=== PATIENT | female | born 1950 | race Caucasian/White ===

== ENCOUNTER 2017-08-17 08:29 | Emergency (ER) | payer MEDICARE, OTHER, SELFPAY ==
[2017-08-17 08:29] VITALS: BP 100/57; PULSE 106; RESP 16; TEMP 36.5; O2SAT 97; BMI 24.7
--- NOTE | 2017-08-17 08:46 | CT_ITS ---
STUDY: CT ABDOMEN AND PELVIS WITH CONTRAST REASON FOR EXAM: Female, 67 years old. 3 day history of left-sided abdominal pain. Chronic constipation. Neurogenic bladder. 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 RADIATION DOSAGE (If Supplied By Facility): CTDIvol = ( 22.08 ) mGy, DLP = ( 1121.26 ) mGycm TECHNIQUE: Transaxial images were obtained from the dome of the diaphragm to the symphysis pubis without oral contrast. 100mL ml of Isovue 300 contrast was administered. Sagittal and coronal images were reconstructed. Individualized dose optimization techniques were used for this CT. COMPARISON: Comparison is made with prior study dated January 17, 2017. FINDINGS: Stable mild degree of increased markings at the lung bases suggestive of bibasilar scarring. Coronary artery calcification. There is decreased attenuation of the liver consistent with steatosis. Normal gallbladder and extrahepatic biliary system. Normal spleen. There is diffuse atrophy of the pancreas. Normal bilateral adrenal glands. Normal right kidney. Normal left kidney. Normal visualized stomach. Normal small intestine. The large amount of fecal material is seen throughout the colon. The appendix is visualized and appears normal. Normal abdominal aorta. Normal inferior vena cava. Normal retroperitoneum. The urinary bladder is empty. Small amount of free fluid is seen in the pelvis. There is a small umbilical hernia containing fat. A pacer device is seen overlying the right lower quadrant. Once again, there is evidence of a comminuted fracture of the proximal right femur with a nonosseous Jarvis. Persistent soft tissue density is seen in the region of the right hip joint most likely representing a chronic synovial fluid and possible soft tissue proliferation. There is evidence of a 4.7 cm x 4.3 cm soft tissue changes with central lucency in the medial aspect of the left gluteus region posteriorly. This may represent possible early decubitus ulcer formation. Clinical correlation is recommended. CT/Abdomen/Pelvis W IV Cont ONLY IMPRESSION: Moderate amount of fecal material is seen throughout the colon. Small amount of free fluid in the pelvis. Fatty infiltration of the liver. Atrophy of the pancreas. Stable appearance of the proximal right femur with nonhealing of a fracture with concomitant soft tissue changes. Findings suggestive of early decubitus ulcer formation with soft tissue induration in the medial aspect of the left gluteal region. Electronically Signed: Forest Fajardo MD at 10:29 EDT Tel [phone], Service support ,
--- NOTE | 2017-08-17 08:50 | ED.VISSUMM ---
- ER Visit Summary Date of Service: 08/17/17 Chief Complaint: Abdominal pain History of Present Illness: The patient is a 67 F 3 of 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 She states she has had moderate to severe abdominal pain since 230 this morning. She states she has had this before when she is a urinary infections. She does self cath herself. She denies fever. She has had nausea with no vomiting. She is on chronic pain meds and has a implanted pain pump that treats her with Dilaudid. She denies any prior abdominal surgeries other than her pain pump. Physical Examination: Signs are stable afebrile. Pulse ox 97% room air no signs of hypoxia. H EENT exam unremarkable. Neck nontender. Lungs clear to auscultation bilaterally. Heart regular rate and rhythm no murmur. Abdomen is soft diffusely tender. She is tender to even extremely light palpation. Nondistended. No hernias or masses. No organomegaly or masses. Normal bowel sounds. No signs of obstruction. Both upper extremities neurovascular intact. Both lower extremities are paralyzed without sensation. Neurologically she is awake and alert. Test Results: ABC normal white count 8. H&H 1340. BMP normal. Normal creatinine and gap. Liver enzymes normal. Lipase normal. CT abdomen and pelvis shows increasing stool. Fluid in the pelvis. No right femoral foot fracture. In the left gluteal region decubitus. UA was consistent for infection with 25-50 white cells. 5-10 red cells 3+ bacteria a urine culture was sent this will be treated as UTI. Emergency Department Course and Treatment: With diffuse abdominal pain. Undergo screening labs along with urinalysis and CT of her abdomen and pelvis with IV contrast only. She will be treated with IV morphine and Dilaudid. Treatment Plan: He will be started on Keflex 500 mg 4 times a day for days. Follow-up with primary care physician. Again a urine culture was sent. Disposition: Discharge Impression: Acute abdominal pain secondary to urinary tract infection History of transverse myelitis with bilateral lower extremity paralysis This note was generated with [employer] software. It may contain incorrect words, spelling, and punctuation that were not noted in review of the chart prior to signing ED Disposition - Plan for ED Patient: Chief Complaint: Abd Pain Referrals: Coleman Michele MD [Primary Care Provider] -
[2017-08-17] MEDS: Ondansetron 4 MG/2 ML Vial IV (09:11)
[2017-08-17] MEDS: HYDROmorphone 1 MG/ML Syringe IV (09:11)
[2017-08-17 09:33] LABS: Absolute Lymphocyte Count 0.53 X10^3/ul (0.83-4.51); Absolute Neutrophil Count 7.6 X10^3/uL (2.0-7.7); Basophil# 0.01 X10^3/uL; Basophil% 0.1 % (0-1); Eosinophil# 0.06 X10^3/uL; Eosinophils% 0.7 % (0-5); Hematocrit 40.6 % (37-47); Hemoglobin 13.5 g/dl (12.0-15.0); Lymphocyte # 0.53 X10^3/ul (4.0); Lymphocyte % 6.3 % (19-41); Mean Corp Hgb Conc 33.3 g/gl (32-36); Mean Corpuscular Hgb 31.2 pg (27.0-32.0); Mean Corpuscular Volume 93.8 fL (81-99); Mean Platelet Vol. 10.3 fl (6.2-12.0); Monocyte# 0.17 X10^3/uL; Neutrophil # 7.58 X10^3/uL (2.7-7.7); Neutrophil % 90.8 % (47-70); Platelet Count 219 K/mm3 (150-450); RBC Distribution Width CV 13.4 % (11.6-14.6); RBC Distribution Width SD 44.8 fl (35.1-43.9); Red Blood Count 4.33 M/mm3 (4.2-5.4); White Blood Count 8.4 K/mm3 (4.4-11.0)
[2017-08-17 09:35] LABS: Color, Urine Yellow (Yellow); Glucose, Dipstick Normal (Normal); Ketone-Dipstick Negative (Negative); Leukocyte Esterase-Dipstick 500 /ul (Negative); Nitrite-Dipstick Negative (Negative); Occult Blood-Urine 150 /ul (Negative); Protein-Dipstick 30 mg/dl (Negative); Urine Bilirubin Dipstick Negative (Negative); Urine Clarity Cloudy (Clear); Urine Urobilinogen Normal (Normal)
[2017-08-17 09:37] LABS: Differential Indicated SCAN CRITERIA MET; POSITIVE COUNT NO; POSITIVE DIFFERENTIAL YES; POSITIVE MORPHOLOGY NO
[2017-08-17 09:42] LABS: AST(SGOT) 27 U/L (15-37); Alanine Aminotransfer ALT/SGPT 20 U/L (13-56); Albumin, Serum 3.5 g/dL (3.2-5.0); Alkaline Phosphatase 96 U/L (45-117); Anion Gap 7 (5-15); BUN 13 mg/dL (7-18); Bilirubin, Direct < 0.05 mg/dL (0.00-0.30); Calcium,Total 8.5 mg/dL (8.5-10.1); Chloride 103 mmol/L (98-107); Creatinine, Serum 0.76 mg/dL (0.55-1.02); EST Glomerular Filtration Rate 80 mL/min (>60); Est Glom Filt Rate - Afr Amer 97 mL/min (>60); Estimated Creatinine Clearance 45.78 ml/min; Globulin 3.6 g/dL (2.2-4.2); Glucose 120 mg/dL (74-106); Lipase 46 U/L (73-393); Potassium 4.2 mmol/L (3.5-5.1); Protein, Total 7.1 g/dL (6.4-8.2); Sodium Level 139 mmol/L (136-145)
[2017-08-17 09:45] LABS: Bacteria 3+ /hpf (None Seen); Red Blood Cells-Urine 5-10 SEEN /hpf (0-5); Squamous Epithelial Cells - UA 0-5 SEEN /hpf (5-10); White Blood Cells 25-50 SEEN /hpf (0-5)
[2017-08-17 09:46] LABS: Mucous, Urine 1+ /hpf (<or=2+)
[2017-08-17 10:32] LABS: Differential Comment SCANNED
[2017-08-17 11:11] VITALS: PULSE 110; RESP 18; O2SAT 94
[2017-08-17 12:25] VITALS: BP 101/79; PULSE 109; RESP 12; O2SAT 99
--- NOTE | 2017-08-17 13:00 | ED.DEP ---
ED Disposition - Plan for ED Patient: Disposition: Home or Assisted Living Chief Complaint: Abd Pain Instructions: ED Constipation, ED UTI Cystitis Female Prescriptions: Cephalexin [Keflex] 500 mg PO Q6 #30 cap Referrals: Coleman Michele MD [Primary Care Provider] - As soon as possible Additional Instructions: Drink plenty of water to help with both the constipation and urinary tract infection. A urine culture was sent and can be followed up by her primary care physician to ensure you are on the correct antibiotic. That should return in 2 days. Keflex 4 times a day for the urinary tract infection.
[2017-08-17 13:10] VITALS: BP 103/65; PULSE 86; RESP 18; O2SAT 99
[2017-08-17] MEDS: Cephalexin 250 MG Capsule 500 MG PO (13:11)
== END 2017-08-17 13:23 | disposition home or self-care (01) ==
PROVIDERS: Emergency Provider Emergency Medicine; Family Provider Family Medicine; PCP Family Medicine
DX: N39.0 Urinary tract infection, site not specified (principal); R10.9 Unspecified abdominal pain; K59.00 Constipation, unspecified; G83.9 Paralytic syndrome, unspecified; G37.3 Acute transverse myelitis in demyelinating disease of central nervous system
CPT/HCPCS: 74177; 80048; 80076; 81001; 83690; 85025; 96374; 96375; 99285; P9612; Q9967; A4216; J2405

== ENCOUNTER 2017-12-07 13:27 | Outpatient (RCR) | payer MEDICARE, OTHER, SELFPAY ==
--- NOTE | 2017-12-07 14:26 | HP.PTEVAL_ITS ---
Patient's Visit Information MAGALI ANDREA is a 67 year old F referred to Physical Therapy by Coleman Michele with a diagnosis of Paraplegia. Date of Evaluation: 12/07/17 Physical Therapist: Cuco Frances - Visit Plan Frequency: 1x/Week Duration: 1 Week Plan: Pt. presents with need for new wc as she has multiple areas that are wearing out on her wc. She needs propulsion assistance to increase functional independence and roho like cushion to reduce future skin breakdown. - Subjective Subjective: Pt. is here today for her initial evaluation with diagnosis of paraplegia with need for WC evaluation. Pt. reports when she was 49 y.o. she developed transverse meyolitis and has been not amblatory since. Pt. has had a propulsion assist wc for ~8 years now. Pt's wt. has many areas that has broken down including arm rest, wheel covers, wheels them selves, batter does not hold charge very well (per pt.). Pt. has a roho cushion for ~8 years as well. Pt. has a history of pressure sore, but reports I have one that looks bad, but it is not there yet (ischial tuberosities). Pt. reports being in her chair ~12 hours a day. Pt. reports frequent UTI, and does self catheterizations. Pt. reports no feeling below umbilicus level. Pt. is an independent transfer with slide board with all txs. Pt. is hopeful to get a new wc allowing for increased independence in community and home. Pt. reports battery life on her wc is ~ 8 hours with frequent use. - Pain BLEs Pain Intensity (Out of 10): 8 Pain Intensity Range: 5, 8 - Objective POSTURE: Pt. has proper trunk controll in sitting, pt. is able to do so without UE assistance. Pt. has no volitional use of LEs. PALPATION: Pt. has no pain with UEs. Pt. has chronic pain in BLEs, but no pain to palpation. Pt. has reported skin irrtation on R ischial tuberosity that she is keeping an eye on. NEUROLOGICAL: Pt. has normal BUE biceps nad triceps DTR, unable to elicit achilles or patellar DTR bilaterally. No sensation to light or sharp thruoghout bilateral LEs, normal senastion in UEs. ROM: Pt. has full ROM of BLE passively. Pt. has normal BUE ROM without increase in symptoms, active and passive. MMT: RUE- wrist 5/5 throughout; elbow 5/5 throughout; shoulder- flexion 4+/5, abd 4+/5, ext 5/5, ER 4/5, IR 5/5. LUE- wrist/elbwo 5/5 throughout ; shoulder- flexion 4+/5, abd 4+/5, ext 5/5, IR 5/5, ER 4+/5. BLES- no volitional movement fo BLEs. No trace noted. WC mobility- pt. is able to lateral shift to relieve pressure in in wc. Pt. is able to propel wc without assistance from propulsion assist, 100ft. in 58sec.; with propulsion assist she was able to complete 100ft. in 15sec. Pt. is able to ADELA transfer with slide board from wc to table and back. - Goals Goal 1:: Pt. to be assessed for need of new WC. Goal Time Frame: 1 Week - Rehabilitation Potential Physical Therapy Diagnosis: Pt. has signs and symptoms consistent with paraplegia after transverse myelitis. Pt. is in need of new wc as her current one has many areas that have worn down including her cushion, L arm rest, B wheel covers and wheels, her batter is not holding appropriate charge as well. Due to her functioal mobility and break down of her chair, I would recommend that she has a new wc with roho like cusion, and propulsion assistance allowing for appropriate functional independence. Rehabilitation Potential: Excellent - Anticipated Interventions Patient/Client Instruction: Educate patient on: Condition, Plan of Care, Risk Factors, Benefits of Fitness Program For the Purpose of:: To foster healthy habits, To improve decision making, To facilitate caregiver knowledge, To improve self management, To prevent re-injury , To improve ability to perform tasks related to life management, To improve tolerance to ADL's Therapeutic Exercise to Include: Strength training, Power training, Postural training, Flexibilty training For the Purpose of:: To improve nutrient delivery to tissue, To increase oxygenation perfusion, To improve muscle performance and motor function, To improve health of tissue, To decrease soft tissue restriction, To increase flexibility/ROM Thank you for the opportunity to evaluate your patient. For Medicare and Medicare HMO plans, please review the plan of care and approve it. It will need to be FAXED BACK to us at [phone] for Medicare purposes. Please let me know if there are questions or concerns regarding this plan of care. Physician Signature: Date:
--- NOTE | 2018-02-09 10:25 | HP.PTDCNRP_ITS ---
HP - Discharge Summary (1) - Patient Information MAGALI ANDREA was seen in my office for initial evaluation on 12/07/17. The following Plan of Care was established for this patient: Initial Frequency: 1x/Week Initial Duration: 1 Week - Anticipated Interventions Patient/Client Instruction: Educate patient on: Condition, Plan of Care, Risk Factors, Benefits of Fitness Program For the Purpose of:: To foster healthy habits, To improve decision making, To facilitate caregiver knowledge, To improve self management, To prevent re- injury, To improve ability to perform tasks related to life management, To improve tolerance to ADL's Therapeutic Exercise to Include: Strength training, Power training, Postural training, Flexibilty training For the Purpose of:: To improve nutrient delivery to tissue, To increase oxygenation perfusion, To improve muscle performance and motor function, To improve health of tissue, To decrease soft tissue restriction, To increase fle xibility/ROM This patient was last seen in our office 12/07/17. Pertinent comments regarding their Physical therapy will appear below: Pt. was seen for her WC evalutation. Pt. has not been seen since and will be DC from PT at this point in time. At this point I will be discontinuing this patient from physical therapy. I would be happy to see this patient again in the future if found appropriate by the physician. Thank you! Cuco Frances
== END 2017-12-07 19:00 | disposition home or self-care (01) ==
LOC: PT 13:27
PROVIDERS: Family Provider Family Medicine; PCP Family Medicine; Visit Provider Family Medicine
DX: G82.20 Paraplegia, unspecified (principal)
CPT/HCPCS: 97162

== ENCOUNTER → 2017-12-15 16:44 | Outpatient (CLI) | payer MEDICARE, OTHER, SELFPAY | PROVIDERS: Family Provider Family Medicine; PCP Family Medicine; Visit Provider Family Medicine | DX: N39.0 Urinary tract infection, site not specified (principal) | CPT/HCPCS: 87086; 87088; 87186 ==

== ENCOUNTER 2018-01-18 12:40 | Day surgery (SDC) | payer MEDICARE, OTHER, SELFPAY ==
[2018-01-18 12:55] VITALS: BP 112/68; PULSE 79; RESP 14; TEMP 36.4; O2SAT 97; BMI 26.0
[2018-01-18] MEDS: Bupivacaine Mpf 0.5% 30 ML VIAL (13:39)
[2018-01-18] MEDS: MethylPREDNISolone Acetate 80 MG/ML Vial (13:39)
--- NOTE | 2018-01-18 13:45 | RAD_ITS ---
PROCEDURE: Caudal block. DATE OF EXAMINATION: January 18, 2018. INDICATION: Female, 67 years old. Chronic low back pain. FLUOROSCOPY TIME (if supplied): (0:14) minutes/seconds. 3 cone down intraoperative views were obtained. Intraoperative imaging provided for caudal block. The spinal needle is seen along the posterior midportion of the sacrum. RAD/Fluor Guidance for Spine Inj IMPRESSION: Imaging provided for caudal block. Electronically Signed: Forest Fajardo MD at 11:06 EDT Tel [phone], Service support ,
[2018-01-18 13:50] VITALS: BP 112/68; BP 118/75; PULSE 75; RESP 16; TEMP 36.6; O2SAT 95
[2018-01-18 14:00] VITALS: BP 112/68; BP 118/75; PULSE 75; RESP 16; TEMP 36.6; O2SAT 98
[2018-01-18 14:15] VITALS: BP 112/68
--- NOTE | 2018-01-18 15:22 | OP.PCM_ITS ---
Problem List (1) Degeneration of intervertebral disc of lumbosacral region Status: Chronic (2) 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 History of Report of Operation Date of Procedure: 01/18/18 Pre-Operative Diagnosis: Transversus myelitis, lumbosacral degenerative disc disease Post-Operative Diagnosis: Transversus myelitis, lumbosacral degenerative disc disease Surgery/Procedure Performed:: Caudal epidural steroid injection Description of Surgical Findings:: PROCEDURE: Caudal epidural steroid injection PREOPERATIVE DIAGNOSIS: Transversus myelitis, lumbosacral degenerative disc disease POSTOPERATIVE DIAGNOSIS: Transversus myelitis, lumbosacral degenerative disc disease ANESTHESIA: Local COMPLICATIONS: None BLOOD LOSS: Minimal PROCEDURE IN DETAIL: History and physical today was reviewed. Risks and benefits of the procedure were explained. The patient understood, agreed to our procedure, and informed consent was obtained. IV inserted per routine protocol. The patient was taken to the operating room, placed in a prone position with a pillow positioned underneath the abdomen. The lower back and tailbone area was prepped and draped in a sterile fashion using iodine ?3 under fluoroscopy guidance on the lateral view the caudal space was identified the skin and subcutaneous tissue and size approximately 3 cc of 1 % lidocaine using a 25-gauge regular needle under direct visualization fluoroscopy using the lateral approach using a 22-gauge 3-1/2 inch spinal needle the needle was advanced via the skin through the sacral hiatus, tip of the needle passed through the sacrococcygeal ligament advanced approximately S4 area after negative aspiration for blood or CSF a total of 3 cc of contrast were injected to confirm correct placement of the needle as well as cephalad spread the spread was followed to approximately L5 area after confirmation AP as well as lateral view repeated negative aspiration a total of 15 cc of preservative-free 0.125% Marcaine with 80 mg of the portal was injected easily. The needles were then removed intact. The patient experienced no signs or symptoms intrathecal, intravascular injection. The patient experienced no paraesthesia. The procedure was completed without any apparent difficult, any complication. The patient appeared to tolerate well. ASSESSMENT AND PLAN: This is a 67-year-old female with transversus myelitis, lumbosacral degenerative disc disease status post caudal epidural steroid injection. The patient will continue her current medications. The patient will follow in approximately 2 weeks for possible repeat of the procedure if indicated.
== END 2018-01-18 14:20 | disposition home or self-care (01) ==
LOC: SDC 12:40 → AC 12:42
PROVIDERS: Family Provider Family Medicine; PCP Family Medicine; Visit Provider Anesthesiology Pain Medicine
PROC: 3E0S3BZ Introduction of Anesthetic Agent into Epidural Space, Percutaneous Approach (ICD-10-PCS; CPT 62282; principal; 2018-01-18 13:40)
DX: G37.3 Acute transverse myelitis in demyelinating disease of central nervous system (principal); M51.37 Other intervertebral disc degeneration, lumbosacral region; F32.9 Major depressive disorder, single episode, unspecified; F41.9 Anxiety disorder, unspecified; M81.0 Age-related osteoporosis without current pathological fracture; G89.0 Central pain syndrome; G82.20 Paraplegia, unspecified; M12.9 Arthropathy, unspecified; M79.1 Myalgia; F11.20 Opioid dependence, uncomplicated; Z79.891 Long term (current) use of opiate analgesic
CPT/HCPCS: 62323; 64483; 77003; J7120; J3490

== ENCOUNTER → 2018-05-07 15:30 | Outpatient (CLI) | payer MEDICARE, OTHER, SELFPAY ==
[2018-04-19 11:45] VITALS: BMI 27.4
--- NOTE | 2018-05-07 16:00 | MRI_ITS ---
STUDY: MRI THORACIC SPINE WITHOUT CONTRAST REASON FOR EXAM: Female, 68 years old. Low back pain, leg pain. 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 TECHNIQUE: Standardized fat and water weighted pulse sequences were obtained in the sagittal and axial planes. COMPARISON: Postmyelogram CT of the thoracic spine 12/06/2013. FINDINGS: Normal kyphosis of the thoracic spine. There is no substantial scoliosis. T1-2, T2-3, T3-4, T4-5, T5-6, T6-7, T7-8, T8-9, T9-10, T10-11, T11-12: Schmorl's nodes in the inferior endplates of T9 and T10 vertebral bodies. Normal endplates. Normal disc height and morphology. No ventral extradural defect. Normal central canal and bilateral intervertebral neural foramina. Atrophy of the thoracic spinal cord but most pronounced at the lower T10 vertebral body level down to the lower T11 vertebral body level. This is worse since 12/06/2013. No intrinsic signal abnormality of the spinal cord. The atrophic conus medullaris terminates at the mid L1 vertebral body level. The soft tissue structures are unremarkable. MRI/Spine Thoracic (Routine) IMPRESSION: 1. Progression of thoracic spinal cord atrophy but most pronounced at the lower T10 vertebral body level down to the lower T11 vertebral body level when compared to post myelogram CT of 12/06/2013. 2. No MRI evidence of intrinsic signal abnormality of the spinal cord. 3. No MRI evidence of thoracic extruded disc fragment or spinal stenosis. Electronically Signed: Redd Shoemaker MD at 10:49 EST , Service support ,
--- NOTE | 2018-05-07 16:45 | MRI_ITS ---
STUDY: MRI LUMBAR SPINE WITHOUT CONTRAST REASON FOR EXAM: Female, 68 years old. Low back and leg pain TECHNIQUE: Standardized fat and water weighted pulse sequences were obtained in the sagittal and axial planes. COMPARISON: None FINDINGS: T12-L1: Normal endplates. Normal disc height, hydration and morphology. Normal bilateral facet joints. Normal central canal and bilateral lateral recesses. Normal bilateral intervertebral neural foramina. Normal lumbar lordosis. There is no substantial scoliosis. Normal conus medullaris that terminates at T12-L1 L1-2: Normal endplates. Normal disc height, hydration and morphology. Normal bilateral facet joints. Normal central canal and bilateral lateral recesses. Normal bilateral intervertebral neural foramina. L2-3: Normal endplates. Normal disc height, hydration and morphology. Normal bilateral facet joints. Normal central canal and bilateral lateral recesses. Normal bilateral intervertebral neural foramina. L3-4: Normal endplates. Normal disc height, hydration and small bilateral foraminal disc protrusions. Mild facet arthropathy.. Normal central canal and bilateral lateral recesses. Mild bilateral neural foraminal encroachment slightly more pronounced on the left L4-5: Normal endplates. Normal disc height, hydration and bilateral foraminal disc protrusions larger on the left.. Facet arthropathy and thickening of ligamenta flava. Normal central canal. Mild bilateral recess stenosis. Moderate right neuroforaminal stenosis and more severe narrowing on the left L5-S1: Normal endplates. Normal disc height, hydration and morphology. Mild facet arthropathy and thickening of ligamenta flava.. Normal central canal and bilateral lateral recesses. Normal bilateral intervertebral neural foramina. Normal visualized sacral ala. Normal visualized paraspinous soft tissue structures. MRI/Spine Lumbar (Routine) IMPRESSION: No evidence for acute fracture or other significant bony pathology. Spinal stenosis at L3-4 and L4-5 greater on the left due to disc disease and facet arthropathy. Electronically Signed: Star Cerrato MD at 21:17 EST , Service support ,
== END ==
PROVIDERS: Family Provider Family Medicine; PCP Family Medicine; Referring Provider Anesthesiology Pain Medicine; Visit Provider Anesthesiology Pain Medicine
DX: M54.5 Low back pain (principal); M79.606 Pain in leg, unspecified
CPT/HCPCS: 72146; 72148

== ENCOUNTER 2018-05-10 13:00 | Day surgery (SDC) | payer MEDICARE, OTHER, SELFPAY ==
[2018-04-19 11:45] VITALS: BP 130/81; PULSE 87; RESP 14; TEMP 36.9; O2SAT 100; BMI 27.4
[2018-05-10 13:24] VITALS: BP 111/72; PULSE 76; RESP 16; TEMP 36.7; O2SAT 99; BMI 26.0
[2018-05-10] MEDS: Cefazolin 2 GM in 0.9% Normal Saline 100 ML IV (14:07)
[2018-05-10] MEDS: Bupivacaine 0.25% 30 ML Vial (14:30)
--- NOTE | 2018-05-10 14:30 | RAD_ITS ---
STUDY: Fluoroscopy intraoperative LUMBAR SPINE REASON FOR EXAM: Female, 68 years old. Intraoperative fluoroscopy insertion spinal cord stimulator trial TECHNIQUE: 8 fluoroscopic view(s) of the lumbar spine were obtained. COMPARISON: None FINDINGS: 8 fluoroscopic views are provided of the spine during spinal cord stimulator insertion. The last image image #8 shows a stimulator device catheter at the level T9-T10. Fluoroscopic time is recorded at 240 seconds. RAD/Lumbar Spine 2 or 3 Views IMPRESSION: Intraoperative study during spinal cord stimulator placement. 240 seconds of fluoroscopy time was recorded. Electronically Signed: Lea Bolton MD at 16:05 EST Tel , Service support ,
[2018-05-10] MEDS: Bacitracin 500 UNITS/GM PACKET (15:02)
--- NOTE | 2018-05-10 15:20 | PCM.OPRPT ---
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 History of Report of Operation Date of Procedure: 05/10/18 Pre-Operative Diagnosis: Chronic central pain syndrome, lumbosacral degenerative disc disease, transversus myelitis Post-Operative Diagnosis: Chronic central pain syndrome, lumbosacral degenerative disc disease, transversus myelitis Surgery/Procedure Performed:: Spinal cord stimulator lead thoracolumbar level trial, fluoroscopic guidance for spinal cord stimulator lead placement, programming of spinal cord stimulator Description of Surgical Findings:: PROCEDURES: 1-spinal cord stimulator thoracolumbar lead trials x1, 2-fluoroscopic guidance and interpretation for spinal cord stimulator trial. 3-programming of a spinal cord stimulator leads. PREOPERATIVE DIAGNOSES: Chronic central pain syndrome, lumbosacral degenerative disc disease, transversus myelitis POSTOPERATIVE DIAGNOSES: Chronic central pain syndrome, lumbosacral degenerative disc disease, transversus myelitis ANESTHESIA: MAC COMPLICATIONS: None BLOOD LOSS: Minimal PROCEDURE IN DETAIL: History and physical today was reviewed. Risks and benefits of procedure explained. The patient understood, agreed to procedure, informed consent was obtained. IV inserted per routine protocol. The patient was taken to the operating room, placed in the prone position with a pillow positioned underneath the chest. A 2 g of Ancef IV piggyback was infused per anesthesia. The upper and middle back area was prepped and draped in a sterile fashion using iodine x3. Under direct visualization with fluoroscopy with the C-arm, which brought into position on AP as well as lateral view, the L3 and L4 vertebral bodies were visualized in the epidural space was visualized on AP as well as lateral view starting on the left of the paramedian approach using a 25-gauge 1-1/2 inch regular needle the skin and subcutaneous tissue and size approximately 8 cc of 1% lidocaine with 0.25% Marcaine mixture followed by a 25-gauge 3-1/2 inch spinal needle to the interlaminar space at the at L1-L2, using a 14-gauge 3-1/2 inch Touhy needle provided by the [employer] kit, the needle passed through the skin the tip of the needle's maneuver and directed towards the interlaminar space at L1-L2 using [id number] technique to air once loss of resistance was encountered under direct visualization with fluoroscopy on AP as well as lateral view the stylette of the needle was then removed and the spinal cord stimulator lead was then inserted into the epidural space the spinal cord stimulator first lead was then advanced under direct visualization fluoroscopy to approximately the bottom of T8 at the mid anatomical line and on AP view and a repeat lateral view to confirm posterior positioning of the lead at the level was then confirmed , once the lead was in satisfactory position the patient was then awakened and programming and stimulation was then took place once the satisfactory coverage of the pain area of the patient was achieved and after repeated confirmation of AP as well as lateral view the stylette of each lead was then removed with life fluoroscopy and the leads were then secured with a bumpy anchor and secured to the skin with a 3-0 nylon on the left of the paramedian level at the level of L3-L4 area, bacitracin ointment was then placed to the entry point of the needle and a Tegaderm was then placed with a 4 x 4 underneath the area was then dressed in a sterile fashion and the spinal cord stimulator lead was then connected to the external device provided by the [employer] kit the patient was then turned into supine position and returned to recovery room in a stable condition programming was then took place at the recovery area procedure was completed without any apparent difficulty any complication the patient appeared to tolerate well. ESTIMATED BLOOD LOSS: Minimal less than 10 mL ASSESSMENT AND PLAN: This is a 68-year-old Female with Chronic central pain syndrome, lumbosacral degenerative disc disease, transversus myelitis status post 1-spinal cord stimulator thoracolumbar lead trials x1, 2-fluoroscopic guidance and interpretation for spinal cord stimulator trial. 3-programming of a spinal cord stimulator leads.patient will continue her current medications patient will follow approximately 3-4 days for reevaluation. A prescription was given to the patient keflex 500 mg 1 p.o. every 8 hours for 7 days, postop instructions were given to the patient and verbal as well as in writing.
[2018-05-10 15:25] VITALS: BP 111/72; BP 85/50; PULSE 58; RESP 16; TEMP 36.3; O2SAT 97
--- NOTE | 2018-05-10 15:28 | OP.PCM_ITS ---
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 History of Report of Operation Date of Procedure: 05/10/18 Pre-Operative Diagnosis: Chronic central pain syndrome, lumbosacral degenerative disc disease, transversus myelitis Post-Operative Diagnosis: Chronic central pain syndrome, lumbosacral degenerative disc disease, transversus myelitis Surgery/Procedure Performed:: Spinal cord stimulator lead thoracolumbar level trial, fluoroscopic guidance for spinal cord stimulator lead placement, programming of spinal cord stimulator Description of Surgical Findings:: PROCEDURES: 1-spinal cord stimulator thoracolumbar lead trials x1, 2-fluoroscopic guidance and interpretation for spinal cord stimulator trial. 3-programming of a spinal cord stimulator leads. PREOPERATIVE DIAGNOSES: Chronic central pain syndrome, lumbosacral degenerative disc disease, transversus myelitis POSTOPERATIVE DIAGNOSES: Chronic central pain syndrome, lumbosacral degenerative disc disease, transversus myelitis ANESTHESIA: MAC COMPLICATIONS: None BLOOD LOSS: Minimal PROCEDURE IN DETAIL: History and physical today was reviewed. Risks and benefits of procedure explained. The patient understood, agreed to procedure, informed consent was obtained. IV inserted per routine protocol. The patient was taken to the operating room, placed in the prone position with a pillow positioned underneath the chest. A 2 g of Ancef IV piggyback was infused per anesthesia. The upper and middle back area was prepped and draped in a sterile fashion using iodine x3. Under direct visualization with fluoroscopy with the C-arm, which brought into position on AP as well as lateral view, the L3 and L4 vertebral bodies were visualized in the epidural space was visualized on AP as well as lateral view starting on the left of the paramedian approach using a 25- gauge 1-1/2 inch regular needle the skin and subcutaneous tissue and size approximately 8 cc of 1% lidocaine with 0.25% Marcaine mixture followed by a 25- gauge 3-1/2 inch spinal needle to the interlaminar space at the at L1-L2, using a 14-gauge 3-1/2 inch Touhy needle provided by the [employer] kit, the needle passed through the skin the tip of the needle's maneuver and directed towards the interlaminar space at L1-L2 using [id number] technique to air once loss of resistance was encountered under direct visualization with fluoroscopy on AP as well as lateral view the stylette of the needle was then removed and the spinal cord stimulator lead was then inserted into the epidural space the spinal cord stimulator first lead was then advanced under direct visualization fluoroscopy to approximately the bottom of T8 at the mid anatomical line and on AP view and a repeat lateral view to confirm posterior positioning of the lead at the level was then confirmed , once the lead was in satisfactory position the patient was then awakened and programming and stimulation was then took place once the satisfactory coverage of the pain area of the patient was achieved and after repeated confirmation of AP as well as lateral view the stylette of each lead was then removed with life fluoroscopy and the leads were then secured with a bumpy anchor and secured to the skin with a 3-0 nylon on the left of the paramedian level at the level of L3-L4 area, bacitracin ointment was then placed to the entry point of the needle and a Tegaderm was then placed with a 4 x 4 underneath the area was then dressed in a sterile fashion and the spinal cord stimulator lead was then connected to the external device provided by the [employer] kit the patient was then turned into supine position and returned to recovery room in a stable condition programming was then took place at the recovery area procedure was completed without any apparent difficulty any complication the patient appeared to tolerate well. ESTIMATED BLOOD LOSS: Minimal less than 10 mL ASSESSMENT AND PLAN: This is a 68-year-old Female with Chronic central pain syndrome, lumbosacral degenerative disc disease, transversus myelitis status post 1-spinal cord stimulator thoracolumbar lead trials x1, 2-fluoroscopic guidance and interpretation for spinal cord stimulator trial. 3-programming of a spinal cord stimulator leads.patient will continue her current medications patient will follow approximately 3-4 days for reevaluation. A prescription was given to the patient keflex 500 mg 1 p.o. every 8 hours for 7 days, postop instructions were given to the patient and verbal as well as in writing.
[2018-05-10 15:30] VITALS: BP 111/72; BP 96/55; PULSE 58; RESP 16; O2SAT 96
[2018-05-10 15:35] VITALS: BP 111/72; BP 95/63; PULSE 60; RESP 16; O2SAT 92
[2018-05-10 15:40] VITALS: BP 111/72; BP 99/62; PULSE 58; RESP 16; TEMP 36.5; O2SAT 92
[2018-05-10 16:25] VITALS: BP 111/72; BP 127/76; PULSE 71; RESP 16; TEMP 36.2; O2SAT 97
--- OUTSIDE RECORDS SUMMARY | 2018-07-22 00:11 | XMS RPT_ITS ---
:1950 Author Organization OHIP Care Team Providers Name Role Phone ERICKSON ROSALES Referring Unavailable Star Corona Attending Unavailable Star Corona Referring Unavailable Coleman Michele Primary Care Unavailable Star Corona Attending Unavailable Star Corona Referring Unavailable Coleman Michele Primary Care Unavailable Coleman Michele Primary Care Unavailable Star Yarbrough Attending Unavailable Coleman Michele Attending Unavailable Coelman Michele Primary Care Unavailable Coleman Michele Referring Unavailable Coleman Michele Attending Unavailable Coleman Michele Primary Care Unavailable Star Corona Attending Unavailable Star Corona Referring Unavailable Coleman Michele Primary Care Unavailable PROBLEMS PROBLEMS DATE TYPE CONDITION / CODE ATTENDING STATUS SOURCE 04/12/2018 Unknown G37.3 - Acute Cj, Active Qeu transverse myelitis [facility] disease of central Repository nervous system / G37.3(ICD-10) 12/16/2017 Unknown N39.0 - Urinary Coleman Michele Active Que tract infection, Community site not specified Hospital / N39.0(ICD-10) Repository 02/11/2018 Unknown G82.20 - Ryne Coleman Active Que Paraplegia, Community unspecified / Hospital G82.20(ICD-10) Repository 09/24/2017 Active Encounter for NA Active [facility] screening mammogram [facility] [place] for malignant Repository neoplasm of breast / Z12.31(ICD-10) PROCEDURES PROCEDURES No Procedure Records FoundRESULTS RESULTS OPERATIVE REPORT Observed: 05/10/2018 Status: F Source: [place] 3:31 PM [facility] REPOSITORY [facility] Medical Records Department [address] [place] [address] Operative Report 05/10/18 1520 MR#: [id number] Acct: [id number] Name: ALEENA ANDREA Rep #: [id number] : 1950 68 From: Star Corona MD PCP: Coleman Michele MD Status: [facility] Y Location: [place] [address] 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 History of Report of Operation Date of Procedure: 05/10/18 Pre-Operative Diagnosis: Chronic central pain syndrome, lumbosacral degenerative disc disease, transversus myelitis Post-Operative Diagnosis: Chronic central pain syndrome, lumbosacral degenerative disc disease, transversus myelitis Surgery/Procedure Performed:: Spinal cord stimulator lead thoracolumbar level trial, fluoroscopic guidance for spinal cord stimulator lead placement, programming of spinal cord stimulator Description of Surgical Findings:: PROCEDURES: 1-spinal cord stimulator thoracolumbar lead trials x1, 2-fluoroscopic guidance and interpretation for spinal cord stimulator trial. 3-programming of a spinal cord stimulator leads. PREOPERATIVE DIAGNOSES: Chronic central pain syndrome, lumbosacral degenerative disc disease, transversus myelitis POSTOPERATIVE DIAGNOSES: Chronic central pain syndrome, lumbosacral degenerative disc disease, transversus myelitis ANESTHESIA: MAC COMPLICATIONS: None BLOOD LOSS: Minimal PROCEDURE IN DETAIL: History and physical today was reviewed. Risks and benefits of procedure explained. The patient understood, agreed to procedure, informed consent was obtained. IV inserted per routine protocol. The patient was taken to the operating room, placed in the prone position with a pillow positioned underneath the chest. A 2 g of Ancef IV piggyback was infused per anesthesia. The upper and middle back area was prepped and draped in a sterile fashion using iodine x3. Under direct visualization with fluoroscopy with the C-arm, which brought into position on AP as well as lateral view, the L3 and L4 vertebral bodies were visualized in the epidural space was visualized on AP as well as lateral view starting on the left of the paramedian approach using a 25- gauge 1-1/2 inch regular needle the skin and subcutaneous tissue and size approximately 8 cc of 1% lidocaine with 0.25% Marcaine mixture followed by a 25-gauge 3-1/2 inch spinal needle to the interlaminar space at the at L1-L2, using a 14-gauge 3-1/2 inch Touhy needle provided by the Medtronic kit, the needle passed through the skin the tip of the needle's maneuver and directed towards the interlaminar space at L1-L2 using [id number] technique to air once loss of resistance was encountered under direct visualization with fluoroscopy on AP as well as lateral view the stylette of the needle was then removed and the spinal cord stimulator lead was then inserted into the epidural space the spinal cord stimulator first lead was then advanced under direct visualization fluoroscopy to approximately the bottom of T8 at the mid anatomical line and on AP view and a repeat lateral view to confirm posterior positioning of the lead at the level was then confirmed , once the lead was in satisfactory position the patient was then awakened and programming and stimulation was then took place once the satisfactory coverage of the pain area of the patient was achieved and after repeated confirmation of AP as well as lateral view the stylette of each lead was then removed with life fluoroscopy and the leads were then secured with a bumpy anchor and secured to the skin with a 3-0 nylon on the left of the paramedian level at the level of L3-L4 area, bacitracin ointment was then placed to the entry point of the needle and a Tegaderm was then placed with a 4 x 4 underneath the area was then dressed in a sterile fashion and the spinal cord stimulator lead was then connected to the external device provided by the Medtronic kit the patient was then turned into supine position and returned to recovery room in a stable condition programming was then took place at the recovery area procedure was completed without any apparent difficulty any complication the patient appeared to tolerate well. ESTIMATED BLOOD LOSS: Minimal less than 10 mL ASSESSMENT AND PLAN: This is a 68-year-old Female with Chronic central pain syndrome, lumbosacral degenerative disc disease, transversus myelitis status post 1-spinal cord stimulator thoracolumbar lead trials x1, 2-fluoroscopic guidance and interpretation for spinal cord stimulator trial. 3-programming of a spinal cord stimulator leads.patient will continue her current medications patient will follow approximately 3-4 days for reevaluation. A prescription was given to the patient keflex 500 mg 1 p.o. every 8 hours for 7 days, postop instructions were given to the patient and verbal as well as in writing. 05/10/18 1531 <Electronically signed by Star Corona MD> Date Star Corona MD CC: Star Corona; Coleman Michele MD Signed LUMBAR SPINE 2 OR 3 Observed: 05/10/2018 Status: F Source: [place] VIEWS 2:48 AM [facility] REPOSITORY [facility] Imaging Services [address] [place] [address] Lumbar Spine 2 or 3 Views MR#: [id number] Acct: [id number] Name: ALEENA ANDREA Rep #: [id number] : 1950 F 68 From: Lea Bolton MD PCP: Coleman Michele MD Status: [facility] Study: Lumbar Spine 2 or 3 Views Date of Exam: 05/10/18 Exam# [id number] Ordering Dr: Star Corona MD STUDY: Fluoroscopy intraoperative LUMBAR SPINE REASON FOR EXAM: Female, 68 years old. Intraoperative fluoroscopy insertion spinal cord stimulator trial TECHNIQUE: 8 fluoroscopic view(s) of the lumbar spine were obtained. COMPARISON: None FINDINGS: 8 fluoroscopic views are provided of the spine during spinal cord stimulator insertion. The last image image #8 shows a stimulator device catheter at the level T9-T10. Fluoroscopic time is recorded at 240 seconds. RAD/Lumbar Spine 2 or 3 Views IMPRESSION: Intraoperative study during spinal cord stimulator placement. 240 seconds of fluoroscopy time was recorded. Electronically Signed: Lea Bolton MD at 16:05 EST Tel , Service support , CC: Star Corona; Coleman Michele MD Gardening Supervisor: Signed SPINE LUMBAR Observed: 2018 Status: F Source: [place] (ROUTINE) 3:54 PM [facility] REPOSITORY [facility] Imaging Services [address] [place] [address] Spine Lumbar (Routine) MR#: [id number] Acct: [id number] Name: ALEENA ANDREA Rep #: [id number] : 1950 F 68 From: Star Cerrato MD PCP: Coleman Michele MD Status: REG CLI Study: Spine Lumbar (Routine) Date of Exam: 05/07/18 Exam# [id number] Ordering Dr: Star Corona MD ADDENDUM by Star Cerrato MD on 05/12/18 at 1111 ADDENDUM ADDENDUM: Comparison is made with prior CT myelogram on December 06, 2013. There is no significant interval change when compared with prior exam Electronically Signed: Star Cerrato MD at 11:11 EST , Service support , 05/12/18 1111 Date cc: Star Corona; Coleman Michele MD * Signed ADDENDUM by Star Cerrato MD on 05/12/18 at 1111 MRI/Spine Lumbar (Routine) 05/12/18 1118 Date cc: Star Corona; Coleman Michele MD * Signed STUDY: MRI LUMBAR SPINE WITHOUT CONTRAST REASON FOR EXAM: Female, 68 years old. Low back and leg pain TECHNIQUE: Standardized fat and water weighted pulse sequences were obtained in the sagittal and axial planes. COMPARISON: None FINDINGS: T12-L1: Normal endplates. Normal disc height, hydration and morphology. Normal bilateral facet joints. Normal central canal and bilateral lateral recesses. Normal bilateral intervertebral neural foramina. Normal lumbar lordosis. There is no substantial scoliosis. Normal conus medullaris that terminates at T12-L1 L1-2: Normal endplates. Normal disc height, hydration and morphology. Normal bilateral facet joints. Normal central canal and bilateral lateral recesses. Normal bilateral intervertebral neural foramina. L2-3: Normal endplates. Normal disc height, hydration and morphology. Normal bilateral facet joints. Normal central canal and bilateral lateral recesses. Normal bilateral intervertebral neural foramina. L3-4: Normal endplates. Normal disc height, hydration and small bilateral foraminal disc protrusions. Mild facet arthropathy.. Normal central canal and bilateral lateral recesses. Mild bilateral neural foraminal encroachment slightly more pronounced on the left L4-5: Normal endplates. Normal disc height, hydration and bilateral foraminal disc protrusions larger on the left.. Facet arthropathy and thickening of ligamenta flava. Normal central canal. Mild bilateral recess stenosis. Moderate right neuroforaminal stenosis and more severe narrowing on the left L5-S1: Normal endplates. Normal disc height, hydration and morphology. Mild facet arthropathy and thickening of ligamenta flava.. Normal central canal and bilateral lateral recesses. Normal bilateral intervertebral neural foramina. Normal visualized sacral ala. Normal visualized paraspinous soft tissue structures. MRI/Spine Lumbar (Routine) IMPRESSION: No evidence for acute fracture or other significant bony pathology. Spinal stenosis at L3-4 and L4-5 greater on the left due to disc disease and facet arthropathy. Electronically Signed: Star Cerrato MD at 21:17 EST , Service support , CC: Star Corona; Coleman Michele MD Gardening Supervisor: Signed SPINE THORACIC Observed: 2018 Status: F Source: [place] (ROUTINE) 3:54 PM [facility] REPOSITORY [facility] Imaging Services [address] [place] [address] Spine Thoracic (Routine) MR#: [id number] Acct: [id number] Name: ALEENA ANDREA Rep #: [id number] : 1950 F 68 From: Redd Shoemaker MD PCP: Coleman Michele MD Status: REG CLI Study: Spine Thoracic (Routine) Date of Exam: 05/07/18 Exam# [id number] Ordering Dr: Star Corona MD STUDY: MRI THORACIC SPINE WITHOUT CONTRAST REASON FOR EXAM: Female, 68 years old. Low back pain, leg pain. 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 TECHNIQUE: Standardized fat and water weighted pulse sequences were obtained in the sagittal and axial planes. COMPARISON: Postmyelogram CT of the thoracic spine 12/06/2013. FINDINGS: Normal kyphosis of the thoracic spine. There is no substantial scoliosis. T1-2, T2-3, T3-4, T4-5, T5-6, T6-7, T7-8, T8-9, T9-10, T10- 11, T11-12: Schmorl's nodes in the inferior endplates of T9 and T10 vertebral bodies. Normal endplates. Normal disc height and morphology. No ventral extradural defect. Normal central canal and bilateral intervertebral neural foramina. Atrophy of the thoracic spinal cord but most pronounced at the lower T10 vertebral body level down to the lower T11 vertebral body level. This is worse since 12/06/2013. No intrinsic signal abnormality of the spinal cord. The atrophic conus medullaris terminates at the mid L1 vertebral body level. The soft tissue structures are unremarkable. MRI/Spine Thoracic (Routine) IMPRESSION: 1. Progression of thoracic spinal cord atrophy but most pronounced at the lower T10 vertebral body level down to the lower T11 vertebral body level when compared to post myelogram CT of 12/06/2013. 2. No MRI evidence of intrinsic signal abnormality of the spinal cord. 3. No MRI evidence of thoracic extruded disc fragment or spinal stenosis. Electronically Signed: Redd Shoemaker MD at 10:49 EST , Service support , CC: Star Corona; Coleman Michele MD Gardening Supervisor: Signed OPERATIVE REPORT Observed: 01/18/2018 Status: F Source: [place] 3:22 PM [facility] REPOSITORY [facility] Medical Records Department [address] [place] [address] Operative Report 01/18/18 1519 MR#: [id number] Acct: [id number] Name: ALEENA ANDREA Rep #: [id number] : 1950 67 From: Star Corona MD PCP: Coleman Michele MD Status: [facility] [place] [facility] [place] Problem List (1) Degeneration of intervertebral disc of lumbosacral region Status: Chronic (2) 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 History of Report of Operation Date of Procedure: 01/18/18 Pre-Operative Diagnosis: Transversus myelitis, lumbosacral degenerative disc disease Post-Operative Diagnosis: Transversus myelitis, lumbosacral degenerative disc disease Surgery/Procedure Performed:: Caudal epidural steroid injection Description of Surgical Findings:: PROCEDURE: Caudal epidural steroid injection PREOPERATIVE DIAGNOSIS: Transversus myelitis, lumbosacral degenerative disc disease POSTOPERATIVE DIAGNOSIS: Transversus myelitis, lumbosacral degenerative disc disease ANESTHESIA: Local COMPLICATIONS: None BLOOD LOSS: Minimal PROCEDURE IN DETAIL: History and physical today was reviewed. Risks and benefits of the procedure were explained. The patient understood, agreed to our procedure, and informed consent was obtained. IV inserted per routine protocol. The patient was taken to the operating room, placed in a prone position with a pillow positioned underneath the abdomen. The lower back and tailbone area was prepped and draped in a sterile fashion using iodine 3 under fluoroscopy guidance on the lateral view the caudal space was identified the skin and subcutaneous tissue and size approximately 3 cc of 1% lidocaine using a 25-gauge regular needle under direct visualization fluoroscopy using the lateral approach using a 22-gauge 3-1/2 inch spinal needle the needle was advanced via the skin through the sacral hiatus, tip of the needle passed through the sacrococcygeal ligament advanced approximately S4 area after negative aspiration for blood or CSF a total of 3 cc of contrast were injected to confirm correct placement of the needle as well as cephalad spread the spread was followed to approximately L5 area after confirmation AP as well as lateral view repeated negative aspiration a total of 15 cc of preservative-free 0.125% Marcaine with 80 mg of the portal was injected easily. The needles were then removed intact. The patient experienced no signs or symptoms intrathecal, intravascular injection. The patient experienced no paraesthesia. The procedure was completed without any apparent difficult, any complication. The patient appeared to tolerate well. ASSESSMENT AND PLAN: This is a 67-year-old female with transversus myelitis, lumbosacral degenerative disc disease status post caudal epidural steroid injection. The patient will continue her current medications. The patient will follow in approximately 2 weeks for possible repeat of the procedure if indicated. 01/18/18 1522 <Electronically signed by Star Corona MD> Date Star Corona MD CC: Star Corona; Coleman Michele MD Signed FLUOR GUIDANCE FOR Observed: 01/18/2018 Status: F Source: [place] SPINE INJ 2:20 AM [facility] REPOSITORY [facility] Imaging Services [address] [place] [address] Fluor Guidance for Spine Inj MR#: [id number] Acct: [id number] Name: ALEENA ANDREA Rep #: [id number] : 1950 F 67 From: Forest Fajardo MD PCP: Coleman Michele MD Status: [facility] Study: Fluor Guidance for Spine Inj Date of Exam: 01/18/18 Exam# [id number] Ordering Dr: Star Corona MD PROCEDURE: Caudal block. DATE OF EXAMINATION: January 18, 2018. INDICATION: Female, 67 years old. Chronic low back pain. FLUOROSCOPY TIME (if supplied): (0:14) minutes/seconds. 3 cone down intraoperative views were obtained. Intraoperative imaging provided for caudal block. The spinal needle is seen along the posterior midportion of the sacrum. RAD/Fluor Guidance for Spine Inj IMPRESSION: Imaging provided for caudal block. Electronically Signed: Forest Fajardo MD at 11:06 EDT Tel [phone], Service support , CC: Star Corona; Coleman Michele MD Gardening Supervisor: Signed Observed: 12/15/2017 Status: F Source: [place] CULTURE, URINE 12:00 AM [facility] REPOSITORY Urine Culture ORGANISM 1: Presumptive E. coli [place] Count >100,000 Presumptive E. coli: REACTION Amoxacillin/Clavulanic Acid $ 4 S Ampicillin $ 8 S Ampicillin/Sulbactam $ 4 S Cefazolin $ <=4 S Cefepime $ <=1 S Ceftriaxone $ <=1 S Ciprofloxacin $ <=0.25 S ESBL - Ertapenim $$$ <=0.5 S Gentamicin $ <=1 S Imipenem *NF <=0.25 S Levofloxacin $ <=0.12 S Nitrofurantoin $ <=16 S Piperacillin/Tazobactam $$ <=4 S Tobramycin $ <=1 S Trimethoprim/Sulfametho $ <=20 S (NF) indicates non-formulary drug at [facility]. Approval by Infectious Disease Specialist required before non-formulary drugs may be ordered and/or dispensed. Performed By: #### [id number] #### [facility] [address] [place], [address] INITAL EVALUATION (1) Observed: 12/07/2017 Status: F Source: [place] - PT 2:26 PM [facility] REPOSITORY [facility] [address] [place] [address]. [address] [place], [place] [id number] Fax REHABILITATION SERVICES INITIAL EVALUATION MR#: [id number] Acct: [id number] Name: ALEENA ANDREA Rep #: [id number] : 1950 67 From: Cuco Frances DPT Referring Dr.: Coleman Michele MD Status: REG RCR Insurance: MEDICARE PART A B [facility] Patient's Visit Information ALEENA ANDREA is a 67 year old F referred to Physical Therapy by Coleman Michele with a diagnosis of Paraplegia. Date of Evaluation: 12/07/17 Physical Therapist: Cuco Frances - Visit Plan Frequency: 1x/Week Duration: 1 Week Plan: Pt. presents with need for new wc as she has multiple areas that are wearing out on her wc. She needs propulsion assistance to increase functional independence and roho like cushion to reduce future skin breakdown. - Subjective Subjective: Pt. is here today for her initial evaluation with diagnosis of paraplegia with need for WC evaluation. Pt. reports when she was 49 y.o. she developed transverse meyolitis and has been not amblatory since. Pt. has had a propulsion assist wc for 8 years now. Pt's wt. has many areas that has broken down including arm rest, wheel covers, wheels them selves, batter does not hold charge very well (per pt.). Pt. has a roho cushion for 8 years as well. Pt. has a history of pressure sore, but reports I have one that looks bad, but it is not there yet (ischial tuberosities). Pt. reports being in her chair 12 hours a day. Pt. reports frequent UTI, and does self catheterizations. Pt. reports no feeling below umbilicus level. Pt. is an independent transfer with slide board with all txs. Pt. is hopeful to get a new wc allowing for increased independence in community and home. Pt. reports battery life on her wc is 8 hours with frequent use. - Pain BLEs Pain Intensity (Out of 10): 8 Pain Intensity Range: 5, 8 - Objective POSTURE: Pt. has proper trunk controll in sitting, pt. is able to do so without UE assistance. Pt. has no volitional use of LEs. PALPATION: Pt. has no pain with UEs. Pt. has chronic pain in BLEs, but no pain to palpation. Pt. has reported skin irrtation on R ischial tuberosity that she is keeping an eye on. NEUROLOGICAL: Pt. has normal BUE biceps nad triceps DTR, unable to elicit achilles or patellar DTR bilaterally. No sensation to light or sharp thruoghout bilateral LEs, normal senastion in UEs. ROM: Pt. has full ROM of BLE passively. Pt. has normal BUE ROM without increase in symptoms, active and passive. MMT: RUE- wrist 5/5 throughout; elbow 5/5 throughout; shoulder- flexion 4+/5, abd 4+/5, ext 5/5, ER 4/5, IR 5/5. LUE- wrist/elbwo 5/5 throughout; shoulder- flexion 4+/5, abd 4+/5, ext 5/5, IR 5/5, ER 4+/5. BLES- no volitional movement fo BLEs. No trace noted. WC mobility- pt. is able to lateral shift to relieve pressure in in wc. Pt. is able to propel wc without assistance from propulsion assist, 100ft. in 58sec.; with propulsion assist she was able to complete 100ft. in 15sec. Pt. is able to ADELA transfer with slide board from wc to table and back. - Goals Goal 1:: Pt. to be assessed for need of new WC. Goal Time Frame: 1 Week - Rehabilitation Potential Physical Therapy Diagnosis: Pt. has signs and symptoms consistent with paraplegia after transverse myelitis. Pt. is in need of new wc as her current one has many areas that have worn down including her cushion, L arm rest, B wheel covers and wheels, her batter is not holding appropriate charge as well. Due to her functioal mobility and break down of her chair, I would recommend that she has a new wc with roho like cusion, and propulsion assistance allowing for appropriate functional independence. Rehabilitation Potential: Excellent - Anticipated Interventions Patient/Client Instruction: Educate patient on: Condition, Plan of Care, Risk Factors, Benefits of Fitness Program For the Purpose of:: To foster healthy habits, To improve decision making, To facilitate caregiver knowledge, To improve self management, To prevent re-injury, To improve ability to perform tasks related to life management, To improve tolerance to ADL's Therapeutic Exercise to Include: Strength training, Power training, Postural training, Flexibilty training For the Purpose of:: To improve nutrient delivery to tissue, To increase oxygenation perfusion, To improve muscle performance and motor function, To improve health of tissue, To decrease soft tissue restriction, To increase flexibility/ROM Thank you for the opportunity to evaluate your patient. For Medicare and Medicare HMO plans, please review the plan of care and approve it. It will need to be FAXED BACK to us at [phone] for Medicare purposes. Please let me know if there are questions or concerns regarding this plan of care. Physician Signature: Date: <Electronically signed by Cuco Frances DPT> 12/07/17 1426 CC: Coleman Michele MD CLS Signed For Medicare only, by signing this I certify the plan of care. Physicians Signature Date CNCO Observed: 09/24/2017 Status: COMPLETED Source: [place] 5:22 PM [facility] REPOSITORY HNO ID: [id number] Author: Mammography Coordinator Service: (none) Author Type: Physician Type: Letter Filed: 09/28/2017 11:32 PM Note Text: September 24, 2017 PID: [id number] Aleena Andrea [address] [facility] [address] [place] [address] Dear Ms. Andrea, We are pleased to inform you that the results of your recent breast imaging exam on 09/24/2017 are normal. Early detection of cancer is very important. We also understand recommendations regarding breast cancer screening are controversial. Please discuss with your primary care provider which strategy is best for you and whether a mammogram is right for you. Your imaging studies and report will be kept on file at [facility] as part of your permanent medical record and are available for your continuing care. Thank you for allowing us to help in meeting your health care needs. Sincerely, Dr. Perdomo Interpreting Radiologist [facility] (Normal over 40) [facility] SCREENING Observed: 09/24/2017 Status: F Source: [place] 1:23 PM [facility] REPOSITORY * * *Final Report* * * DATE OF EXAM: Sep 24 2017 1:23PM W 0581 - [facility] SCREENING / PROCEDURE REASON: screening * * * * Physician Interpretation * * * * RESULT: #[id number] - [facility] SCREENING BILATERAL DIGITAL SCREENING MAMMOGRAM WITH CAD: 09/24/2017 HISTORY: Screening\ Screening Mammogram - patient reports NO breast symptoms /priors available for comparison. RESULT: TECHNIQUE: The study was acquired using full field digital technology and interpreted from soft copy. Current study was also evaluated with a Computer Aided Detection (CAD). Comparison is made to exams dated: 01/02/2016 mammogram - [facility] and 09/13/2014 mammogram - [facility]. There are scattered fibroglandular elements in both breasts. No significant masses, calcifications, or other findings are seen in either breast. There has been no significant interval change. IMPRESSION: NEGATIVE There is no mammographic evidence of malignancy.A 1 year screening mammogram is recommended. Daija Perdomo M.D. pb/penrad:09/24/2017 17:22:45 Rn Travel: Claudia Mo RT(R)(M), [place] [facility] [place] letter sent: Normal over 40 Mammogram BI-RADS: 1 Negative Gardening Supervisor: Charmaine Transcribe Date/Time: Sep 24 2017 1:20P Dictated by: DAIJA PERDOMO MD This examination was interpreted and the report reviewed and electronically signed by: DAIJA PERDOMO MD on Sep 24 2017 5:22PM EST [id number] EMERGENCY DEPARTMENT Observed: 08/17/2017 Status: F Source: [place] SUMMARY 5:00 PM [facility] REPOSITORY [facility] Medical Records Department [address] [place] [address] Emergency Department Summary 08/17/17 0850 MR#: [id number] Acct: [id number] Name: ALEENA ANDREA Rep #: [id number] : 1950 67 From: Star Yarbrough MD PCP: Coleman Michele MD Status: DEP ER - ER Visit Summary Date of Service: 08/17/17 Chief Complaint: Abdominal pain History of Present Illness: The patient is a 67 F 3 of 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 She states she has had moderate to severe abdominal pain since 230 this morning. She states she has had this before when she is a urinary infections. She does self cath herself. She denies fever. She has had nausea with no vomiting. She is on chronic pain meds and has a implanted pain pump that treats her with Dilaudid. She denies any prior abdominal surgeries other than her pain pump. Physical Examination: Signs are stable afebrile. Pulse ox 97% room air no signs of hypoxia. H EENT exam unremarkable. Neck nontender. Lungs clear to auscultation bilaterally. Heart regular rate and rhythm no murmur. Abdomen is soft diffusely tender. She is tender to even extremely light palpation. Nondistended. No hernias or masses. No organomegaly or masses. Normal bowel sounds. No signs of obstruction. Both upper extremities neurovascular intact. Both lower extremities are paralyzed without sensation. Neurologically she is awake and alert. Test Results: ABC normal white count 8. H AND H 1340. BMP normal. Normal creatinine and gap. Liver enzymes normal. Lipase normal. CT abdomen and pelvis shows increasing stool. Fluid in the pelvis. No right femoral foot fracture. In the left gluteal region decubitus. UA was consistent for infection with 25-50 white cells. 5-10 red cells 3+ bacteria a urine culture was sent this will be treated as UTI. Emergency Department Course and Treatment: With diffuse abdominal pain. Undergo screening labs along with urinalysis and CT of her abdomen and pelvis with IV contrast only. She will be treated with IV morphine and Dilaudid. Treatment Plan: He will be started on Keflex 500 mg 4 times a day for days. Follow-up with primary care physician. Again a urine culture was sent. Disposition: Discharge Impression: Acute abdominal pain secondary to urinary tract infection History of transverse myelitis with bilateral lower extremity paralysis This note was generated with [employer] dictation software. It may contain incorrect words, spelling, and punctuation that were not noted in review of the chart prior to signing ED Disposition - Plan for ED Patient: Chief Complaint: Abd Pain Referrals: Coleman Michele MD [Primary Care Provider] - What to do if you have Problems For any increased pain, shortness of breath, bleeding, nausea or vomiting, chest pain, or any unexpected problems, contact your Primary Care Provider. Call [facility] ([phone]) or report to the closest Emergency Room. Call 911 if necessary. 08/17/17 1700 <Electronically signed by Star Yarbrough MD> Date Star Yarbrough MD Cosigner Signature (If Indicated): Date CC: Coleman Michele MD DISCHARGE INSTRUCTION Observed: 08/17/2017 Status: F Source: [place] 5:00 PM [facility] REPOSITORY [facility] Medical Records Department [address] [place] [address] Discharge Instruction 08/17/17 1300 MR#: [id number] Acct: [id number] Name: EMREALEENA Chuy Rep #: [id number] : 1950 67 From: Star Yarbrough MD PCP: Coleman Michele MD Status: DEP ER ED Disposition - Plan for ED Patient: Disposition: Home or Assisted Living Chief Complaint: Abd Pain Instructions: ED Constipation, ED UTI Cystitis Female Prescriptions: Cephalexin [Keflex] 500 mg PO Q6 #30 cap Referrals: Coleman Michele MD [Primary Care Provider] - As soon as possible Additional Instructions: Drink plenty of water to help with both the constipation and urinary tract infection. A urine culture was sent and can be followed up by her primary care physician to ensure you are on the correct antibiotic. That should return in 2 days. Keflex 4 times a day for the urinary tract infection. What to do if you have Problems For any increased pain, shortness of breath, bleeding, nausea or vomiting, chest pain, or any unexpected problems, contact your Primary Care Provider. Call [facility] ([phone]) or report to the closest Emergency Room. Call 911 if necessary. 08/17/17 1700 <Electronically signed by Star Yarbrough MD> Date Star Yarbrough MD Cosigner Signature (If Indicated): Date CC: Coleman Michele MD URINALYSIS, COMPLETE Collected: 08/17/2017 Status: F Source: [place] 9:15 AM [facility] REPOSITORY Order Comment: Order Date: 08/17/17 How was Urine Obtained? LOCAL ANNOUNCER TO SPECIFY TYPE CODE TESTS RESULT OUT OF RANGE REFERENCE UNITS LAB L400.3000 Yellow COLOR Normal Yellow LAB L400.3050 Clear Normal CLARITY Cloudy LAB L400.3200 Normal mg/dl Normal GLUCOSE, UR Normal LAB L400.3300 Negative mg/dL Normal BILIRUBIN URINE Negative LAB L400.3400 Negative mg/dl Normal KETONE UR Negative LAB L400.3465 1.002-1.030 Normal SP.GR. DIPSTX 1.010 LAB L400.3550 5.0 - 8.0 pH UR Normal 6.0 LAB L400.3600 Negative mg/dl High PROT 30 DIPSTX LAB L400.3700 Normal mg/dl Normal UROBILI Normal LAB L400.3750 Negative Normal NITRITE UR Negative LAB L400.3780 Negative /ul High OCCULT BLOOD-UR 150 LAB L400.3800 Negative /ul High LEUK ESTERASE 500 LAB L400.4050 0-5 /hpf WBC Normal 25-50 SEEN LAB L400.4100 0-5 /hpf Normal RBC-UA 5-10 SEEN LAB L400.4150 5-10 /hpf SQUAM Normal EPI 0-5 SEEN LAB L400.4300 None Seen /hpf 3+ Normal BACTERIA LAB L400.4350 <or=2+ /hpf 1+ Normal MUCUS, URINE Performed By: #### L400.0001 #### [facility] [address] [place], [address] CBC W/DIFF, AUTOMATED Collected: 08/17/2017 Status: F Source: [place] 9:05 AM [facility] REPOSITORY TYPE CODE TESTS RESULT OUT OF RANGE REFERENCE UNITS LAB L100.1000 4.4-11.0 K/mm3 Normal WBC 8.4 LAB L100.1200 4.2-5.4 M/mm3 Normal RBC 4.33 LAB L100.1300 12.0-15.0 g/dl Normal HGB 13.5 LAB L100.1400 37-47 % Normal HCT 40.6 LAB L100.1500 81-99 fL Normal MCV 93.8 LAB L100.1600 27.0-32.0 pg Normal MCH 31.2 LAB L100.1700 32-36 g/gl Normal MCHC 33.3 LAB L100.1810 11.6-14.6 % Normal RDW CV 13.4 LAB L100.1820 35.1-43.9 fl High RDW SD 44.8 LAB L100.1900 150-450 K/mm3 Normal PLT 219 LAB L100.2000 6.2-12.0 fl Normal MPV 10.3 LAB L100.2100 47-70 % High NEUT% 90.8 LAB L100.2200 19-41 % Low LY% 6.3 LAB L100.2300 0-10 % Normal MONO% 2.0 LAB L100.2400 0-5 % Normal EO% 0.7 LAB L100.2500 0-1 % Normal BASO% 0.1 LAB L100.2550 0.0-0.9 % Normal IM GRAN % 0.100 Result Comment: IG% - Immature Granulocytes (promyelocytes, myelocytes and metamyelocytes) > 1% indicates that a LEFT SHIFT is Present. LAB L100.2620 2.0-7.7 X10 3/uL Normal Absolute Neut 7.6 LAB L100.2720 0.83-4.51 X10 3/ul Low Absolute Lymph 0.53 LAB L100.4500 Normal SMEAR COMMENT SCANNED Performed By: #### L100.0100 #### [facility] [address] [place], [address] BASIC METABOLIC Collected: 08/17/2017 Status: F Source: [place] PROFILE (BMP) 9:05 AM [facility] REPOSITORY TYPE CODE TESTS RESULT OUT OF RANGE REFERENCE UNITS LAB L501.0100 74-106 mg/dL High GLU 120 Result Comment: Fasting Glucose result from 100 to 125 mg/dL suggests IMPAIRED HOMEOSTASIS per A.D.A. criteria. Please note revised GLUCOSE reference range effective 2017. LAB L501.1000 7-18 mg/dL Normal BUN 13 LAB L501.1100 0.55-1.02 mg/dL Normal CREAT,SERUM 0.76 Result Comment: The validity of the calculated GFR AND GFRAA in patients over 70 years has not been determined. Clinical correlation is essential. LAB L501.1110 >60 mL/min Normal EST GFR 80 Result Comment: Non- GFR Calc LAB L501.1115 >60 mL/min Normal EST GFR - AA 97 Result Comment: GFR Calc LAB L501.1255 ml/min Normal Estimated CRCL 45.78 LAB L501.1300 10-20 RATIO Normal BUN/CRE 17.0 LAB L501.2200 8.5-10 mg/dL Normal .1 CA 8.5 LAB L501.5300 136-14 mmol/L Normal 5 NA 139 LAB L501.5600 3.5-5. mmol/L Normal 1 K 4.2 Result Comment: Slight Hemolysis, Result may be falsely increased. LAB L501.5900 98-107 mmol/L Normal CL 103 LAB L501.6100 21.0-32.0 mmol/L Normal CO2 29.0 LAB L501.6200 5-15 Normal 7 GAP Performed By: #### L500.2500, L500.3400, L501.2450 #### [facility] [address] [place], [address] LIVER PROFILE Collected: 08/17/2017 Status: F Source: [place] 9:05 AM [facility] REPOSITORY TYPE CODE TESTS RESULT OUT OF RANGE REFERENCE UNITS LAB L501.1500 6.4-8.2 g/dL Normal T PROT 7.1 LAB L501.1800 3.2-5.0 g/dL Normal ALB 3.5 LAB L501.1950 2.2-4.2 g/dL Normal GLOB 3.6 LAB L501.4100 15-37 U/L Normal AST 27 Result Comment: Slight Hemolysis, Result may be falsely increased. LAB L501.4305 45-117 U/L Normal ALK P 96 LAB L501.4405 13-56 U/L Normal ALT 20 LAB L501.4600 0.20-1.00 mg/dL Normal T BILI 0.40 LAB L501.4700 0.00-0.30 mg/dL Normal D BILI < 0.05 Performed By: #### L500.2500, L500.3400, L501.2450 #### [facility] [address] [place], [address] LIPASE Collected: 08/17/2017 Status: F Source: [place] 9:05 AM [facility] REPOSITORY TYPE CODE TESTS RESULT OUT OF REFERENCE UNITS RANGE LAB L501.2450 73-393 U/L Low LIPASE 46 Performed By: #### L500.2500, L500.3400, L501.2450 #### [facility] [address] [place], [address] ABDOMEN/PELVIS W IV CONT Observed: 08/17/2017 Status: F Source: [place] ONLY 8:48 AM [facility] REPOSITORY [facility] Imaging Services [address] [place] [address] Abdomen/Pelvis W IV Cont ONLY MR#: [id number] Acct: [id number] Name: ALEENA ANDREA Rep #: [id number] : 1950 F 67 From: Forest Fajardo MD PCP: Coleman Michele MD Status: REG ER Study: Abdomen/Pelvis W IV Cont ONLY Date of Exam: 08/17/17 Exam# [id number] Ordering Dr: Star Yarbrough MD STUDY: CT ABDOMEN AND PELVIS WITH CONTRAST REASON FOR EXAM: Female, 67 years old. 3 day history of left-sided abdominal pain. Chronic constipation. Neurogenic bladder. 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 RADIATION DOSAGE (If Supplied By Facility): CTDIvol = ( 22.08 ) mGy, DLP = ( 1121.26 ) mGycm TECHNIQUE: Transaxial images were obtained from the dome of the diaphragm to the symphysis pubis without oral contrast. 100mL ml of Isovue 300 contrast was administered. Sagittal and coronal images were reconstructed. Individualized dose optimization techniques were used for this CT. COMPARISON: Comparison is made with prior study dated January 17, 2017. FINDINGS: Stable mild degree of increased markings at the lung bases suggestive of bibasilar scarring. Coronary artery calcification. There is decreased attenuation of the liver consistent with steatosis. Normal gallbladder and extrahepatic biliary system. Normal spleen. There is diffuse atrophy of the pancreas. Normal bilateral adrenal glands. Normal right kidney. Normal left kidney. Normal visualized stomach. Normal small intestine. The large amount of fecal material is seen throughout the colon. The appendix is visualized and appears normal. Normal abdominal aorta. Normal inferior vena cava. Normal retroperitoneum. The urinary bladder is empty. Small amount of free fluid is seen in the pelvis. There is a small umbilical hernia containing fat. A pacer device is seen overlying the right lower quadrant. Once again, there is evidence of a comminuted fracture of the proximal right femur with a nonosseous Jarvis. Persistent soft tissue density is seen in the region of the right hip joint most likely representing a chronic synovial fluid and possible soft tissue proliferation. There is evidence of a 4.7 cm x 4.3 cm soft tissue changes with central lucency in the medial aspect of the left gluteus region posteriorly. This may represent possible early decubitus ulcer formation. Clinical correlation is recommended. CT/Abdomen/Pelvis W IV Cont ONLY IMPRESSION: Moderate amount of fecal material is seen throughout the colon. Small amount of free fluid in the pelvis. Fatty infiltration of the liver. Atrophy of the pancreas. Stable appearance of the proximal right femur with nonhealing of a fracture with concomitant soft tissue changes. Findings suggestive of early decubitus ulcer formation with soft tissue induration in the medial aspect of the left gluteal region. Electronically Signed: Forest Fajardo MD at 10:29 EDT Tel [phone], Service support , CC: Star Yarbrough MD; Coleman Michele MD Gardening Supervisor: Signed ALLERGIES ALLERGIES DATE TYPE / CODE NAME / CODE REACTION SEVERITY SOURCE 04/19/2018 Drug No Known Unknown [place] Allergy/717433503(S Allergies/F Community NOMED CT) [id number]( Hospital XNORM) Repository 12/29/2001 Miscellaneous OTHER [facility] Allergy/607422387(S [place] NOMED CT) Repository ENCOUNTERS ENCOUNTERS ADMIT/DISCHARGE ACCOUNT ADMITTING ENCOUNTER LOCATION SOURCE NUMBER CLASS 05/10/2018/05/10/19 [id number] Ambulatory [address] ing:SDCRoom: Repository AC17 2018 [id number] Ambulatory [facility] ing:MRI Repository 01/18/2018/01/19/20 [id number] Ambulatory [address] ing:SDC Repository 12/15/2017 [id number] Ambulatory [facility] ing:LABSPEC Repository 12/07/2017/12/08/19 [id number] Ambulatory [address] ing:PT Repository 09/24/2017/09/25/19 [id number] Ambulatory [address] Repository 08/17/2017/08/18/19 [id number] Emergency [address] ing:ED Repository PAYERS PAYERS ENCOUNTER GUARANTOR PAYER SUBSCRIBER SOURCE 05/10/2018 ALEENA A Primary ALEENA A [place] [id number] Insurance:MEDICARE ADAIRDOB: [id number] Number: Repository [address] [id number]: (330) Date:2018-04-120820 () 05/10/2018 Secondary ALEENA A [place] Insurance:AARPPolicy ADAIRDOB: Community Number: [id number] Hospital [id number] Repository Date:3225-64-20IX [facility] [address], [place] [address]YK: 05/10/2018 Tertiary NOT GIVENUNK [place] Insurance:SELF PAY [facility] Number: Effective Repository Date:2018-04-19 2018 ALEENA A Primary ALEENA A [place] [id number] Insurance:MEDICARE ADAIRDOB: [facility] [id number] Number: Repository [address], [place] [id number] [id number]: (330) Date:2018-04-28 [phone] () 2018 Secondary ALEENA A Que Insurance:AARPPolicy ADAIRDOB: Community Number: [id number] Hospital [id number] Repository Date:4588-20-16[address], [place] [address]WI: 2018 Tertiary NOT G[place]UNK [place] Insurance:SELF PAY [facility] Number: Effective Repository Date:2018-04-28 01/18/2018 Aleena A Primary Aleena A [place] [id number] Insurance:MEDICARE AdairDOB: [facility] [id number] Number: [facility] [place] [id number]: (330) Date:2018-01-12 () 01/18/2018 Secondary Aleena A [place] Insurance:AARPPolicy AdairDOB: [facility] Number: [id number] Hospital [id number] Repository Date:5000-04-13TE [facility] [address]127[address], [place] [address]YB: 01/18/2018 Tertiary NOT GIVENUNK [place] Insurance:SELF PAY [facility]: Effective Repository Date:2018-01-12 12/15/2017 Aleena A Primary Aleena A [place] [id number] Insurance:MEDICARE AdairDOB: [facility] [id number] Number: Repository [address] [id number]: (143) Date:2017-12-15 [phone] () 12/15/2017 Secondary Aleena A [place] Insurance:AARPPolicy AdairDOB: Community Number: [id number] Hospital [id number] Repository Date:1322-23-05XD [facility] [address]44[address]VLTQZQQ, [place] [address]DQ: 12/15/2017 Tertiary NOT GIVENUNK [place] Insurance:SELF PAY [facility] Number: Effective Repository Date:2017-12-15 12/07/2017 Aleena A Primary Aleena A [place] [id number] Insurance:MEDICARE AdairDOB: [facility] [id number] Vista Hospital Number: Repository [address] [id number]: (330) Date:2003-07-03 [phone] () 12/07/2017 Secondary Aleena A [place] Insurance:AARPPolicy AdairDOB: Community Number: [id number] Hospital [id number] Repository Date:6763-85-55WW [facility] [address]36[place]ZBX[place]WX, [place] [address]VK: 12/07/2017 Tertiary NOT GIV[place]UNK [place] Insurance:SELF PAY [facility] Number: Effective Repository Date:2017-12-07 08/17/2017 Aleena A Primary Aleena A [place] [id number] Insurance:MEDICARE AdairDOB: [facility] A BPolic [id number] Vista Hospital Number: Repository [address] [id number]: (330) Date:2017-08-17 [phone] () 08/17/2017 Secondary Aleena A [place] Insurance:AARPPolicy AdairDOB: Community Number: [id number] Hospital [id number] Repository Date:3358-08-80[address], [place] [address]NS: 08/17/2017 Tertiary NOT GIVENUNK [place] Insurance:SELF PAY [facility] Number: Effective Repository Date:2017-08-17
== END 2018-05-10 16:26 | disposition home or self-care (01) ==
LOC: SDC 13:01 → AC 13:02
PROVIDERS: Family Provider Family Medicine; PCP Family Medicine; Referring Provider Anesthesiology Pain Medicine; Visit Provider Anesthesiology Pain Medicine
PROC: (CPT 63650; principal; 2018-05-10 14:05)
DX: G89.0 Central pain syndrome (principal); M51.37 Other intervertebral disc degeneration, lumbosacral region; G37.3 Acute transverse myelitis in demyelinating disease of central nervous system; G82.20 Paraplegia, unspecified; M12.9 Arthropathy, unspecified; F11.20 Opioid dependence, uncomplicated; K59.00 Constipation, unspecified; Z79.891 Long term (current) use of opiate analgesic; Z87.440 Personal history of urinary (tract) infections
CPT/HCPCS: 00300; 63650; 63685; 72100; 76000; J7120

== ENCOUNTER → 2018-07-13 12:25 | Outpatient (CLI) | payer MEDICARE, OTHER, SELFPAY ==
[2018-07-13 14:09] LABS: ALB/GLOB Ratio 1.1 RATIO (0.9-2.4); AST(SGOT) 19 U/L (15-37); Alanine Aminotransfer ALT/SGPT 17 U/L (13-56); Albumin, Serum 3.6 g/dL (3.2-5.0); Alkaline Phosphatase 56 U/L (45-117); Anion Gap 8 (5-15); BUN 11 mg/dL (7-18); BUN/Creat Ratio 18.8 RATIO (10-20); Chloride 102 mmol/L (98-107); Cholesterol 176 mg/dL (200); Creatinine, Serum 0.59 mg/dL (0.55-1.02); EST Glomerular Filtration Rate 109 mL/min (>60); Est Glom Filt Rate - Afr Amer 132 mL/min (>60); Globulin 3.4 g/dL (2.2-4.2); Glucose 70 mg/dL (74-106); High Density Lipoprotein 56 mg/dL; Potassium 3.8 mmol/L (3.5-5.1); Sodium Level 141 mmol/L (136-145); Triglycerides 89 mg/dL; Very Low Density Lipoprotein 18 mg/dL (5-40)
[2018-07-13 14:14] LABS: Vitamin D,25 Hydroxy 20.7 ng/mL (29.95-100.01)
== END ==
PROVIDERS: Family Provider Family Medicine; PCP Family Medicine; Referring Provider Nurse Practitioner Family; Visit Provider Nurse Practitioner Family
DX: Z13.220 Encounter for screening for lipoid disorders (principal); M81.0 Age-related osteoporosis without current pathological fracture
CPT/HCPCS: 36415; 80053; 80061; 82306

== ENCOUNTER 2018-12-02 21:21 | Emergency (ER) | payer MEDICARE, SELFPAY ==
[2018-12-02 21:22] VITALS: BP 131/83; PULSE 90; RESP 20; TEMP 36.3; O2SAT 97; BMI 26.0
--- NOTE | 2018-12-02 22:04 | ED.VIS.GEN ---
History of Present Illness Chief Complaint: General Illness Informant: Patient, Family Context: Sudden Onset Timing: Intermittent Quality: Abnormal movement above the waist Location: Above the waist, torso Current Severity: At times patient sitting with no movement at times she is rocking back and forth Maximum Severity: Moderate Worsened by: Unknown Relieved by: Nothing Associated Symptoms: No associated symptoms Narrative: Patient is a 68-year-old woman who is paraplegic secondary to transverse myelitis who has history of frequent urinary tract infections and self caths. She is presently on a Dilaudid and baclofen pump. Medicines have been reduced. She contacted her physician and he does not believe it is related to the medicine or decreasing her dose. She denies fever, chills night sweats. She denies ocular, visual auditory symptoms. Denies cardiac or respiratory symptoms. She denies GI symptoms. She has no movement from the waist down. 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 (7) Chronic constipation Status: Chronic (8) Paraplegia Status: Chronic Comment: G82.20 due to transverse myelitis (9) Self-catheterizes urinary bladder Status: Chronic (10) 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 History of (11) Urinary retention Status: Chronic Past Medical History - Allergies and Home Meds Allergies/Adverse Reactions: Allergies No Known Allergies Allergy (Verified 12/02/18 21:22) Primary Care Physician: Coleman Michele MD [Primary Care Provider] - Prior records reviewed: Yes Surgical History: - - Ileal conduit, umbilicus surgery, intrathecal pump, surgical debridement of L ischial pressure ulcer and flap closure Lives: With Family Smoking Status: Never smoker - Family History Maternal Family History: Reports: Heart Disease Paternal Family History: Reports: Cancer Review of Systems General: Denies: Chills, Fever, Sweats Eyes: Denies: Visual changes - bilaterally, Diplopia ENT: Denies: Rhinorrhea, Sore throat Cardiovascular: Denies: Chest pain, Palpitations Respiratory: Denies: Dyspnea, Cough, Dyspnea on exertion Gastrointestinal: Denies: Abdominal pain, Nausea, Vomiting, Diarrhea, Melena, Hematochezia Genitourinary: Denies: Dysuria, Hematuria, Frequency Musculoskeletal: Reports: Back pain. Denies: Myalgias, Arthralgias, Extremity Pain Skin: Denies: Rash, Wounds Neurological: Denies: Headache, Weakness, Parasthesia, Numbness Hematologic: Denies: Easy bruising, Easy bleeding Allergy: Denies: Uticaria, Swelling of the mouth Physical Exam Vital Signs/Narrative: Vital Signs Temp Pulse Resp BP Pulse Ox 12/02/18 21:22 97.3 F L 90 20 H 131/83 H 97 General: Well nourished, Well developed, No Acute Distress Head: Normocephalic, Atraumatic Eyes: Perrl, EOMI ENT: Moist mucous membranes, No rhinorrhea Neck: Supple, Nontender Cardiovascular: Regular rate, Regular rhythm, No murmurs, Normal S1, Normal S2 Respiratory: No distress, CTA bilaterally, Chest nontender Abdomen: Soft, Nontender, Nondistended, Normal bowel sounds Back: Nontender, Normal Inspection Extremities: Nontender, No edema Skin: Normal color, No rash Neurological: Alert, Oriented x3, Cranial nerves II-XII grossly intact, - - Since sensation lower extremity and no deep tendon reflexes. Upper extremity strength is 5/5. Sensation is intact. Psychological: Normal affect, Normal Mood, - - Patient observed to have abnormal movement at the waist. Flexion and extension type movement. She appeared to have another episode. One time the episode stopped when I asked her question and she thought before she responded. Diagnostic/Tx/Re-eval Laboratory Results 12/02/18 12/02/18 12/02/18 22:10 22:15 22:15 WBC 5.0 RBC 3.76 L Hgb 11.7 L Hct 35.8 L MCV 95.2 MCH 31.1 MCHC 32.7 RDW Std Deviation 47.4 H RDW Coeff of Pretty 13.5 Plt Count 302 MPV 9.9 Immature Gran % (Auto) 0.200 Neut % (Auto) 46.4 L Lymph % (Auto) 39.6 Victoria % (Auto) 7.8 Eos % (Auto) 5.6 H Baso % (Auto) 0.4 Absolute Neuts (auto) 2.3 Absolute Lymphs (auto) 1.98 Nucleated RBC % 0 Sodium 139 Potassium 3.8 Chloride 104 Carbon Dioxide 32.0 Anion Gap 3 L BUN 7 Creatinine 0.54 L Estim Creat Clear Calc 45.16 Est GFR (MDRD) Af Amer 144 Est GFR (MDRD) Non-Af 119 BUN/Creatinine Ratio 12.9 Glucose 83 Calcium 8.6 Total Bilirubin 0.20 AST 19 ALT 17 Alkaline Phosphatase 72 Total Protein 7.2 Albumin 3.6 Globulin 3.6 Albumin/Globulin Ratio 1.0 Urine Color Yellow Urine Clarity Clear Urine pH 7.0 Ur Specific [place] 1.005 Urine Protein Negative Urine Glucose (UA) Normal Urine Ketones Negative Urine Occult Blood 25 H Urine Nitrite Negative Urine Bilirubin Negative Urine Urobilinogen Normal Ur Leukocyte Esterase 100 H Urine RBC 0 SEEN Urine WBC 0-5 SEEN Ur Squamous Epith Cells 0 SEEN Urine Bacteria 0 SEEN Urine Mucus 0 SEEN - Medical Decision Making Patient with history of transverse myelitis frequent urinary tract infections will assess urine for infection since she self caths. Will obtain baseline blood work to determine if there is a metabolic or infectious etiology. Suspicious with her stopping during questioning whether this is psychogenic in origin. Patient's work-up is unremarkable. The etiology of the abnormal movement is unknown. When I went back to inform patient of results she had abnormal movement. She stopped when she looked up and asked me a question I think this is ED Disposition - Plan for ED Patient: Disposition: Home or Assisted Living Diagnosis: Other abnormal involuntary movements Referrals: Coleman Michele MD [Primary Care Provider] - 2 Days Additional Instructions: The cause of your abnormal movement is unknown. Recommend following up with your doctor for further assessment.
[2018-12-02 22:21] LABS: Bacteria 0 SEEN /hpf (None Seen); Mucous, Urine 0 SEEN /hpf (<or=2+); Red Blood Cells-Urine 0 SEEN /hpf (0-5); Squamous Epithelial Cells - UA 0 SEEN /hpf (5-10)
[2018-12-02 22:27] LABS: Absolute Lymphocyte Count 1.98 X10^3/uL (0.83-4.51); Absolute Neutrophil Count 2.3 X10^3/uL (2.0-7.7); Basophil# 0.02 X10^3/uL; Basophil% 0.4 % (0-1); Eosinophil# 0.28 X10^3/uL; Eosinophils% 5.6 % (0-5); Hematocrit 35.8 % (37-47); Hemoglobin 11.7 g/dL (12.0-15.0); Lymphocyte # 1.98 X10^3/ul (4.0); Lymphocyte % 39.6 % (19-41); Mean Corp Hgb Conc 32.7 g/dL (32-36); Mean Corpuscular Hgb 31.1 pg (27.0-32.0); Mean Corpuscular Volume 95.2 fL (81-99); Mean Platelet Vol. 9.9 fl (6.2-12.0); Monocyte# 0.39 X10^3/uL; Monocyte% 7.8 % (0-10); NRBC Flagged by Analyzer 0 % (0-5); Neutrophil # 2.32 X10^3/uL (2.7-7.7); Neutrophil % 46.4 % (47-70); Platelet Count 302 K/mm3 (150-450); RBC Distribution Width CV 13.5 % (11.6-14.6); RBC Distribution Width SD 47.4 fl (35.1-43.9); Red Blood Count 3.76 M/mm3 (4.2-5.4)
[2018-12-02 22:37] LABS: Color, Urine Yellow (Yellow); Glucose, Dipstick Normal (Normal); Ketone-Dipstick Negative (Negative); Leukocyte Esterase-Dipstick 100 /ul (Negative); Nitrite-Dipstick Negative (Negative); Occult Blood-Urine 25 /ul (Negative); Protein-Dipstick Negative (Negative); Specific Gravity, Urine 1.005 (1.002-1.030); Urine Bilirubin Dipstick Negative (Negative); Urine Clarity Clear (Clear); Urine Urobilinogen Normal (Normal)
[2018-12-02 22:47] LABS: AST(SGOT) 19 U/L (15-37); Alanine Aminotransfer ALT/SGPT 17 U/L (13-56); Albumin, Serum 3.6 g/dL (3.2-5.0); Alkaline Phosphatase 72 U/L (45-117); Anion Gap 3 (5-15); BUN 7 mg/dL (7-18); BUN/Creat Ratio 12.9 RATIO (10-20); Calcium,Total 8.6 mg/dL (8.5-10.1); Chloride 104 mmol/L (98-107); Creatinine, Serum 0.54 mg/dL (0.55-1.02); EST Glomerular Filtration Rate 119 mL/min (>60); Est Glom Filt Rate - Afr Amer 144 mL/min (>60); Estimated Creatinine Clearance 45.16 ml/min; Globulin 3.6 g/dL (2.2-4.2); Glucose 83 mg/dL (74-106); Potassium 3.8 mmol/L (3.5-5.1); Protein, Total 7.2 g/dL (6.4-8.2); Sodium Level 139 mmol/L (136-145)
[2018-12-02 22:47] LABS: White Blood Cells 0-5 SEEN /hpf (0-5)
[2018-12-02 23:26] VITALS: BP 130/82; PULSE 75; RESP 16
== END 2018-12-02 23:27 | disposition home or self-care (01) ==
PROVIDERS: Emergency Provider Emergency Medicine; Family Provider Family Medicine; PCP Family Medicine
DX: R25.9 Unspecified abnormal involuntary movements (principal); Z87.440 Personal history of urinary (tract) infections; F32.9 Major depressive disorder, single episode, unspecified; F41.9 Anxiety disorder, unspecified; G82.20 Paraplegia, unspecified; I47.1 Supraventricular tachycardia; K59.09 Other constipation; G04.89 Other myelitis; G89.0 Central pain syndrome
CPT/HCPCS: 80053; 81001; 85025; 99284

== ENCOUNTER → 2019-03-09 10:36 | Outpatient (CLI) | payer MEDICARE, OTHER, SELFPAY ==
--- NOTE | 2019-03-09 10:41 | BD_ITS ---
STUDY: DUAL ENERGY X-RAY ABSORPTIOMETRY / DXA REASON FOR EXAM: Female, 68 years old. The patient is postmenopausal. Loss of height. TECHNIQUE: Bone Mineral Density (BMD) measurements of lumbar spine and left hip were obtained. COMPARISON: Comparison is made with prior study February 18, 2012. FINDINGS: Lumbar Spine (L1-L4): g/cm2 (0.734) / T-score (-3.6) / Z-score (-2.0) Findings are suggestive of osteoporosis with a high fracture risk. Left Femur Total: g/cm2 (0.424) / T-score (-4.6) / Z-score (-3.3) Left Femoral Neck: g/cm2 (0.486) / T-score (-4.0) / Z-score (-2.4) The T-Scores on the most recent prior examination were: Lumbar Spine (L1-L4): There has been worsening of bone density since the previous examination. Left Femur Total: which represents an improvement of 15.5%. Right Femur Total: . BD/Dexa Bone Density Study IMPRESSION: The patient is considered osteoporotic as outlined below according to World [employer] Organization (WHO) criteria with a high fracture risk. There has been worsening of bone density since the previous examination. Reference Information: The T-score is the number of standard deviations above or below the standard which is normal for young adults at their peak bone mineral density. The World Health Organization (WHO) interprets the T-scores as follows: Above -1 Normal bone density Between -1 and -2.5 Osteopenia Equal to / or below -2.5 Osteoporosis As a practical clinical guideline, osteopenia may be graded as follows: Mild -1 through -1.5 Moderate -1.6 through -2.0 Severe -2.1 through -2.4 The Z-score is the number of standard deviations above or below age-matched controls. A Z-score of less than -1.5 would be considered abnormal. References: 1. NIH Osteoporosis and Related Bone Diseases http://www.osteo.org 2. International Society for Clinical Densitometry http://www.iscd.org 3. National Osteoporosis Foundation http://www.nof.org Electronically Signed: Forest Fajardo, at 15:40 EST , Service support ,
== END ==
PROVIDERS: Family Provider Family Medicine; PCP Family Medicine; Referring Provider Family Medicine; Visit Provider Family Medicine
DX: M81.0 Age-related osteoporosis without current pathological fracture (principal)
CPT/HCPCS: 77080

== ENCOUNTER 2019-04-18 05:05 | Inpatient (IN) | payer MEDICARE, OTHER, SELFPAY ==
[2019-04-18] VITALS (16 sets, daily range): BP systolic 83–110; BP diastolic 51–86; PULSE 71–135; RESP 8–18; TEMP 35.7–37.1; O2SAT 88–100; BMI 26.4; BMI 27.1
--- NOTE | 2019-04-18 | MRI_ITS ---
STUDY: MRI BRAIN WITHOUT CONTRAST REASON FOR EXAM: Female, 68 years old. Encephalopathy, stroke, unresponsive, history of transverse myelitis. TECHNIQUE: Standardized multiplanar fat and water weighted pulse sequences were obtained. Motion limited exam. COMPARISON: CT brain April 18, 2020 FINDINGS: Normal size of the ventricles and extra-axial spaces for the patient''s age. Normal white matter tracts of the supratentorial brain. Normal bilateral basal ganglia. Normal thalami. There is no extra-axial fluid accumulation. Normal flow voids within the major intracranial circulation suggesting patency by spin echo criteria. Normal sella turcica, pituitary gland, infundibular stalk, optic chiasm and hypothalamus. Normal tectal plate and pineal gland. Normal midbrain, tien and medulla. Normal cerebellum. Normal basal cisterns. Normal bilateral temporal bones. Normal bilateral internal auditory canals. No demonstrated orbital abnormality, within the constraints of a routine brain study. Normal visualized paranasal sinuses. Normal calvarium and skull base. Normal visualized soft tissue structures. Normal visualized upper cervical spine. IMPRESSION: Motion limited exam but grossly Normal unenhanced MRI of the brain. Electronically Signed: Checo Zaragoza MD at 20:19 EST , Service support , MRI/Brain without Contrast
--- NOTE | 2019-04-18 05:20 | CT_ITS ---
STUDY: CT BRAIN WITHOUT CONTRAST REASON FOR EXAM: Female, 68 years old. Fall with decreased loss of consciousness RADIATION DOSAGE (If Supplied By Facility): CTDIvol = ( 44.99 ) mGy, DLP = ( 762.36 ) mGycm TECHNIQUE: Transaxial CT imaging of the brain was performed without administration of intravenous contrast material. Individualized dose optimization techniques were used for this CT. COMPARISON: No relevant priors. FINDINGS: Normal soft tissue structures. Normal calvarium. Normal size ventricles and extra-axial spaces for the patient''s age. Normal white matter tracts of the cerebral hemispheres. Normal basal ganglia and thalami. Normal brainstem. Normal cerebellum. There is no intracranial hemorrhage. There are no findings of an acute ischemic infarction. Normal visualized paranasal sinuses. CT/Brain/Head without Contrast IMPRESSION: Negative unenhanced CT scan of the brain. Electronically Signed: Roland Bravo, at 6:42 EST Tel , Service support ,
--- NOTE | 2019-04-18 05:20 | RAD_ITS ---
STUDY: X-RAY CHEST REASON FOR EXAM: Female, 68 years old. Mental status change TECHNIQUE: AP portable COMPARISON: 08/09/2015 FINDINGS: The lungs are clear and expanded. There is no demonstrated pleural abnormality. Normal size heart. Normal mediastinum and olaf. Normal visualized pulmonary arteries. Normal visualized aortic arch and descending thoracic aorta. Normal visualized thoracic spine. Normal visualized ribs, clavicles, and shoulders. There is no demonstrated abnormality of the visualized soft tissue structures of the upper abdomen. RAD/Chest 1 View (Portable) IMPRESSION: Negative x-ray examination of the chest. No interval change. Electronically Signed: Roland Bravo, at 5:53 EST Tel , Service support ,
--- NOTE | 2019-04-18 05:20 | EKG12_ITS ---
Test Reason : FALL Blood Pressure : / mmHG Vent. Rate : 079 BPM Atrial Rate : 079 BPM P-R Int : 168 ms QRS Dur : 100 ms QT Int : 438 ms P-R-T Axes : 063 072 042 degrees QTc Int : 502 ms Normal sinus rhythm Nonspecific T Wave Abnormality Abnormal ECG Confirmed by JAUN DENIS, ZIGGY ([id number]), movie editor HEAVEN ALBERTS ([id number]) on 04/20/2019 11:52:52 AM Referred By: ISAÍAS Confirmed By:ZIGGY ZAMORANO MD
[2019-04-18] MEDS: 0.9% Normal Saline 1,000 ML 1000 ML IV (05:25)
--- NOTE | 2019-04-18 05:31 | ED.DCSUM_ITS ---
- ER Visit Summary Date of Service: 04/18/19 Chief Complaint: Fall History of Present Illness: The patient is a 68 F history of paraplegia from transverse myelitis, frequent UTIs, anxiety and depression, chronic pain and SVT. Patient is basically obtunded and unable give me any history. Reportedly had a fall at home causing laceration to her right lower leg. Was sent in for evaluation of that. Family is not here at this time for any further history. Physical Examination: Older female initial blood pressure 90/59. Temperature 96 pulse is 96% on room air no signs of hypoxia. Her eyes are closed. She is currently not responding. There are no signs of trauma to her face or scalp. When I open her eyes her pupils are 2 mm bilaterally. They do respond to light. Neck nontender. No signs of trauma. No lymphadenopathy. Lungs clear to auscultation bilaterally. Heart regular rhythm rate about 90 no murmur. Chest were nontender. Abdomen soft and nontender normal bowel sounds no peritoneal signs. No bruising. Not distended. No signs of obstruction. Pelvic girdle intact. Her extremities are flaccid. There is a laceration of her right lower leg just below the knee that is in a semicircular C-shaped fashion that will need to be suture repaired. It is approximately 3 cm in length. There is no active bleeding. There is no gross bony deformities upper lower extremities. She does not currently withdraw them to pain. Back is nontender without signs of trauma. Neurologically her eyes are closed. She is not responding to commands or noxious stimuli. Test Results: CBC shows a white count of 1.8. Hemoglobin of 12. No bands. EKG shows a sinus rhythm rate of 79 with no acute signs of RI or ischemia. Portable 1 view chest x-ray read both myself and the radiologist shows no acute abnormality. Normal cardiac silhouette. No infiltrate. BMP unremarkable except for sodium 133 and a potassium of 3.0. Normal gap normal BUN and creatinine. Troponin normal. Lactic acid normal 1.7. Urinalysis is still pending. CAT scan of the brain showed no acute abnormality read both by myself and the radiologist. No bleed. No signs of trauma. Procedure note: Right lower leg laceration with ER repair. C-shaped laceration of flap variety just below her right knee on the lateral side. Involve skin and subcu tissue. Locally anesthetized with 1% plain lidocaine. Cleaned with Shur- Clens washed and explored. Closed using 3 simple interrupted 4-0 Ethilon sutures. Proper hemostasis and wound closure obtained. Nurse applied dressing. Multiple repeat exams unchanged. Emergency Department Course and Treatment: Given her vital signs which are relatively stable I am awaiting to speak with her daughter before we have overly aggressive measures. She will be treated with IV fluids. A infectious etiology work-up will be pursued. The right lower leg laceration will be locally anesthetized and suture repaired by myself. Treatment Plan: Is a decreased mental status of uncertain etiology. I did speak at length with her daughter was in the emergency department sitting in her bedside. This may be medication related. I have are spoken to the hospitalist Dr. Noel Lerma who is down the emergency department evaluate the patient for admission to the PCU. Disposition: Admission Impression: Acute mental status change Fall Right lower leg laceration with ER repair 3 cm Hypotension History of paraplegia History of chronic pain with a pain pump This note was generated with [employer] dictation software. It may contain incorrect words, spelling, and punctuation that were not noted in review of the chart prior to signing ED Disposition - Plan for ED Patient: Referrals: Coleman Michele MD [Primary Care Provider] -
[2019-04-18 05:36] LABS: Bedside Glucose 130 mg/dL (70-110)
[2019-04-18 05:37] LABS: Absolute Lymphocyte Count 0.56 X10^3/uL (0.83-4.51); Absolute Neutrophil Count 1.2 X10^3/uL (2.0-7.7); Differential Indicated SCAN CRITERIA MET; Eosinophil# 0.01 X10^3/uL; Eosinophils% 0.5 % (0-5); Hematocrit 37.1 % (37-47); Hemoglobin 12.3 g/dL (12.0-15.0); Lymphocyte # 0.56 X10^3/ul (4.0); Lymphocyte % 30.6 % (19-41); Mean Corp Hgb Conc 33.2 g/dL (32-36); Mean Corpuscular Volume 93.5 fL (81-99); Mean Platelet Vol. 10.5 fl (6.2-12.0); Monocyte# 0.02 X10^3/uL; Monocyte% 1.1 % (0-10); NRBC Flagged by Analyzer 0 % (0-5); Neutrophil # 1.24 X10^3/uL (2.7-7.7); Neutrophil % 67.8 % (47-70); POSITIVE DIFFERENTIAL YES; Platelet Count 169 K/mm3 (150-450); RBC Distribution Width CV 14.3 % (11.6-14.6); RBC Distribution Width SD 48.7 fl (35.1-43.9); Red Blood Count 3.97 M/mm3 (4.2-5.4); White Blood Count 1.8 K/mm3 (4.4-11.0)
--- NOTE | 2019-04-18 06:08 | ED.RN ---
NO URINE AFTER CATHETER PLACEMENT. RED RUBBER CATH ANOTHER POSSIBLE PLACEMENT WAS VAGINA. CONTINUE TO MONITOR. MD INFORMED. BP LOW, 2 LITER ORDERED.
[2019-04-18] MEDS: 0.9% Normal Saline 1,000 ML 999 ML IV (06:09)
[2019-04-18 06:10] LABS: Anion Gap 6 (5-15); BUN 16 mg/dL (7-18); BUN/Creat Ratio 14.7 RATIO (10-20); Calcium,Total 8.4 mg/dL (8.5-10.1); Chloride 99 mmol/L (98-107); Creatinine, Serum 1.09 mg/dL (0.55-1.02); EST Glomerular Filtration Rate 53 mL/min (>60); Est Glom Filt Rate - Afr Amer 64 mL/min (>60); Estimated Creatinine Clearance 43.25 ml/min; Glucose 128 mg/dL (74-106); Sodium Level 133 mmol/L (136-145)
[2019-04-18 06:20] LABS: Differential Comment SCANNED
[2019-04-18 06:37] LABS: Lactic Acid 1.7 mmol/L (0.4-1.9)
--- NOTE | 2019-04-18 07:12 | ED.RN ---
PT HAVING SPASTIC MOVEMENTS. MD TO BEDSIDE. EPISODES LAST 5 SECS. HX OF SAME.
--- NOTE | 2019-04-18 07:13 | ED.RN ---
PT SELF CATHS VIA [facility] PER DAUGHTER. UNABLE TO GET URINE WITH NORMAL CATHETER. SHE HAD BRAND NEW SELF CATH KIT THAT WAS USED WITH PHYSICIANS PERMISSION TO CATH PT. 200ML OF CLEAR URINE PRODUCED.
--- NOTE | 2019-04-18 07:34 | ED.RN ---
okay per Dr. Hernandez to use urine out of new self cath bag as it was brand new.
[2019-04-18 07:37] LABS: Mucous, Urine 0 SEEN /hpf (<or=2+)
[2019-04-18 07:39] LABS: Color, Urine Yellow (Yellow); Glucose, Dipstick Normal (Normal); Ketone-Dipstick Negative (Negative); Leukocyte Esterase-Dipstick 500 /ul (Negative); Nitrite-Dipstick Negative (Negative); Occult Blood-Urine 50 /ul (Negative); Protein-Dipstick 30 mg/dl (Negative); Urine Bilirubin Dipstick Negative (Negative); Urine Clarity Cloudy (Clear); Urine Urobilinogen Normal (Normal)
[2019-04-18 07:46] LABS: Bacteria 3+ /hpf (None Seen); Hyaline Cast 0-5 SEEN /lpf (0-5); Red Blood Cells-Urine 0-5 SEEN /hpf (0-5); Squamous Epithelial Cells - UA 0-5 SEEN /hpf (5-10); Transitional Epithelial - Ur 0-5 SEEN /hpf (0-5); White Blood Cells 5-10 SEEN /hpf (0-5)
--- NOTE | 2019-04-18 07:49 | ED.RN ---
DAUGHTER CALLED IN TO REQUEST THAT DR TALK WITH DR GEIGER REGARDING TURNING OFF PAIN PUMP.DR HARDEN AWARE AND HAS ALREADY TALKED TO DR GEIGER REGARDING PUMP
--- NOTE | 2019-04-18 07:51 | NURSING ---
PCU ENCEPHALOPATHY TERELETSKY
[2019-04-18 08:01] LABS: Alcohol, Blood (Medical)-Serum < 3.0 mg/dL
--- NOTE | 2019-04-18 08:22 | PCM.HP.STD ---
Problem List (1) Altered level of consciousness Status: Acute History of Present Illness Date of Admission: 04/18/19 Chief Complaint: Altered level of consciousness The patient is a 68 year old F who was seen in the emergency room at [facility] after being brought in by squad after she was found on the floor by her daughter in her bedroom-patient lives with her daughter-she had a cut on her right knee area, she appeared lethargic to the daughter but was able to speak and respond to verbal commands. When brought into the emergency room, patient was unresponsive and somnolent, she did not respond to verbal or painful stimuli, she did not appear to be in any distress however and she was slightly hypotensive. Review of systems was unable to be obtained from the patient due to her somnolence, medical information was obtained from the daughter who was present during my examination. Lab work was obtained-her white blood cell count was low at 1.8, potassium was 3, sodium was 133, a cathed urinalysis showed 3+ bacteria, 5-10 WBCs, and 0-5 RBCs. The alcohol level was under 3, urine toxicology was pending. Patient was afebrile, CT of the head showed no acute process, chest x-ray was unremarkable. Pulse ox on room air was 98% Patient will be admitted to PCU for encephalopathy, I strongly suspect this is secondary to medication-patient is on a pain pump, this pain pump delivers Prialt-according to pain management, patient also takes oral baclofen.. Daughter thinks that the pain pump was adjusted recently to increase the Prialt.. I contacted Dr. Deal who agreed to see the patient in consultation-he will adjust the pain pump downward and we will monitor the patient on PCU. I will treat the patient for a cystitis. Past Medical History Past Medical History (Chronic Problems): Chronic Problems Degeneration of intervertebral disc of lumbosacral region (Chronic) Central pain syndrome (Chronic) Chronic central neuropathic pain (Chronic) Chronic abdominal pain (Chronic) Neurogenic bladder (Chronic) Paraplegia (Chronic) G82.20 due to transverse myelitis Anxiety and depression (Chronic) 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 History of Insomnia (Chronic) Muscle spasm (Chronic) Neuropathic pain (Chronic) Urinary retention (Chronic) Chronic constipation (Chronic) Depression (Chronic) Anxiety (Chronic) Open wound of genital labia (Chronic) Constipation (Chronic) Anemia (Chronic) Pressure sore of left ischium, stage 4 (Chronic) 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 Pressure sore of left ischium, stage 3 (Chronic) Left perineal ischial pressure ulcer (Chronic) Self-catheterizes urinary bladder (Chronic) Chronic anemia (Chronic) Chronic back pain (Chronic) History fluid overload, systolic CHF (Chronic) Allergies No Known Allergies Allergy (Verified 12/02/18 21:22) Home Medications: Ambulatory Orders Medication Instructions Recorded Amitriptyline HCl 50 mg PO TID 04/10/15 Gabapentin [Neurontin] 800 mg PO 4X/DAYCM 04/10/15 Naproxen [Naprosyn] 375 mg PO BID 07/19/15 Pain Pump (Pt's Own) 17.004 mg IT DAILY 08/02/15 traZODone [Desyrel] 100 mg PO QHS #30 tablet 09/14/15 Oxycodone [Oxyir] 10 mg PO 06,12,17,21 #56 tablet 02/09/17 Senna/Docusate Sodium [Senokot-S] 2 tablet PO BID PRN 08/17/17 Trimethoprim [Trimpex] 100 mg PO DAILY 01/14/18 Baclofen 20 mg PO TID 12/02/18 Polyethylene Glycol 3350 [Miralax] 17 gm PO DAILY PRN PRN 12/02/18 Surgical History: - - Ileal conduit, umbilicus surgery, intrathecal pump, surgical debridement of L ischial pressure ulcer and flap closure Psychiatric History: Anxiety, Depression RESIN FILTERER History: No pertinent RESIN FILTERER history Lives: With Family Smoking Status: Unknown if ever smoked Tobacco Use: Non-smoker Alcohol: None Drugs: None - *Family History Maternal History Items: Heart Disease Paternal History Items: Cancer Review of Systems Comment: Review of systems is unobtainable due to unresponsiveness of the patient, medical information was obtained from patient's family member who was present the time of my examination VTE Information - Inpt Only VTE Present on Admission: No VTE Mechan Device Prophylaxis: None VTE Pharm Prophylaxis ordered?: Yes Patient Problems: Active and Suspected Problems Altered level of consciousness (Acute) - Physical Exam Vitals/I&O's: Vital Signs Temp Pulse Resp BP Pulse Ox 96.3 F L 88 14 108/65 98 04/18/19 05:10 04/18/19 08:03 04/18/19 08:03 04/18/19 08:03 04/18/19 08:03 Oxygen Flow Rate (L/min) 1 Oxygen Delivery Method Room Air Weight: 69.9 kg Body Mass Index (BMI) 26.4 Finger Stick Blood Glucose 130 Intake and Output for Last 24 Hours 04/16/19 04/17/19 04/18/19 23:59 23:59 23:59 Intake Total 1999 Balance 1999 General: No apparent distress, Well developed, Well nourished, Lethargic, - - Patient is lethargic and does not respond to painful or verbal stimuli HEENT: Atraumatic, PERRLA, Normocephalic Oral: Moist Mucosa Neck: Supple, No JVD, Negative Carotid Bruits, Trachea Midline, Thyroid Normal Size and Texture Lungs: Clear to auscultation, Normal air movement, No rhonchi, No wheeze Cardiovascular: Regular rate, Regular Rhythm, Normal S1, Normal S2, No murmurs, PMI Normal, No rub noted, No Gallop Abdomen: Bowel Sounds Present, Soft, Non Tender, Non-Distended, - - Suprapubic catheter is in place through the umbilicus area Extremities: No clubbing, No cyanosis, Edema - Generalized nonpitting edema is noted over the lower extremities, - - Severe muscle atrophy is noted over the lower extremities Skin: No rashes Neurological: Cranial nerves II-XII grossly intact, - - Patient is somnolent and does not respond to painful or verbal stimuli Psych/Mental Status: - - Patient is somnolent and does not respond to painful or verbal stimuli, she does not appear to be in any distress Laboratory Results 04/18/19 05:12: WBC 1.8 L, RBC 3.97 L, Hgb 12.3, Hct 37.1, MCV 93.5, MCH 31.0, MCHC 33.2, RDW Std Deviation 48.7 H, RDW Coeff of Pretty 14.3, Plt Count 169, MPV 10.5, Immature Gran % (Auto) 0.000, Neut % (Auto) 67.8, Lymph % (Auto) 30.6, [place] % (Auto) 1.1, Eos % (Auto) 0.5, Baso % (Auto) 0.0, Absolute Neuts (auto) 1.2 L, Absolute Lymphs (auto) 0.56 L, Nucleated RBC % 0, Differential Comment SCANNED, Diff Path Review September04/18/19 05:12: Sodium 133 L, Potassium 3.0 L, Chloride 99, Carbon Dioxide 28.0, Anion Gap 6, BUN 16, Creatinine 1.09 H, Estim Creat Clear Calc 43.25, Est GFR (MDRD) Af Amer 64, Est GFR (MDRD) Non-Af 53 L, BUN/Creatinine Ratio 14.7, Glucose 128 H, Calcium 8.4 L, Troponin I < 0.015 04/18/19 05:12: Ethyl Alcohol < 3.0 04/18/19 05:23: POC Glucose 130 H 04/18/19 05:50: Lactic Acid 1.7 04/18/19 07:30: Urine Color Yellow, Urine Clarity Cloudy, Urine pH 6.0, Ur Specific [place] 1.010, Urine Protein 30 H, Urine Glucose (UA) Normal, Urine Ketones Negative, Urine Occult Blood 50 H, Urine Nitrite Negative, Urine Bilirubin Negative, Urine Urobilinogen Normal, Ur Leukocyte Esterase 500 H, Urine RBC 0-5 SEEN, Urine WBC 5-10 SEEN, Ur Squamous Epith Cells 0-5 SEEN, Ur Transition Epith Cell 0-5 SEEN, Urine Bacteria 3+, Hyaline Casts 0-5 SEEN, Urine Mucus 0 SEEN 04/18/19 08:10: Urine Opiates Screen Pending, Urine Methadone Screen Pending, Ur Barbiturates Screen Pending, Ur Phencyclidine Scrn Pending, Ur Amphetamines Screen Pending, U Methamphetamin-MDMA Pending, U Benzodiazepines Scrn Pending, Urine Cocaine Screen Pending, U Cannabinoids Screen Pending, Ur Drug Screen Comment Assessment/Plan All Active Problems Altered level of consciousness (Acute) Elevated troponin (Resolved) Sepsis (Resolved) SVT (supraventricular tachycardia) (Resolved) UTI (urinary tract infection) (Acute) Hypokalemia (Acute) Leukopenia (Acute) Acute osteomyelitis of left pelvic region (Resolved) Hip fracture (Resolved) Hypotension (Acute) UTI (lower urinary tract infection) (Acute) Non-STEMI (non-ST elevated myocardial infarction) (Resolved) #1 acute encephalopathy-etiology unclear but strongly suspect medication reaction-patient is on multiple medications and she has a pain pump with Prialt-I talked with her pain management physician Dr. Deal, he is agreed to see her in consultation on PCU, patient will be admitted to PCU and monitored, all her oral medications will be held at this time, her pain pump will be readjusted or turned off. #2 urinary tract infection-I will place the patient on Rocephin #3 paraplegia secondary to transverse myelitis-chronic #4 chronic pain syndrome #5 leukopenia-etiology unclear, recheck CBC tomorrow #6 hypokalemia-patient will be given IV KCl and her fluids, labs will be rechecked #7 chronic depression Talked extensively with the patient's daughter who was here at the time of my examination. Patient is a full code Code Visit Inpatient E&M: 72557 Init Hosp L3
[2019-04-18 08:42] LABS: Amphetamine Urine VISTA NEGATIVE (<1000 ng/mL); Barbiturate Urine VISTA NEGATIVE (< 200 ng/mL); Benzodiazepine Urine VISTA NEGATIVE (< 200 ng/mL); Cocaine Urine VISTA NEGATIVE (< 300 ng/mL); Ecstacy Urine VISTA POSITIVE (< 500 ng/mL); Methadone Urine VISTA NEGATIVE (< 300 ng/mL); PCP Urine VISTA NEGATIVE (< 25 ng/mL); THC Urine VISTA NEGATIVE (< 50 ng/mL); Vista UDS pH Range 7
--- NOTE | 2019-04-18 08:45 | NURSING ---
this RN called daughter to obtain history on pt due to pt not responding to staff. daughter will be in soon.
--- NOTE | 2019-04-18 10:42 | NURSING ---
pt family in during admission. upable to educate pt on room orientation. family aware.
[2019-04-18] MEDS: Heparin Injection (Vial) 5,000 UNIT/ML VIAL 5000 UNIT SC ×2 (10:49→21:55)
--- NOTE | 2019-04-18 11:39 | CASEMGMT ---
RN CM Assessment Introduced role of RN CM to patient Raphael Cramer at bedside as patient is currently sleeping with snoring.? Information obtained from Dtr Bela whom is her HPOA. ?Care providers, pharmacy, and demographics verified. Presentation: Found on floor by Dtr, cut on Rt knee, appeared lethargic. ER- unresponsive & somnolent. Per MD documentation- *Suspect s/t medication, patient on pain pump. Admit Dx: Encephalopathy Re-Admit: No Barriers/Issues: Patient recently moved in with her Dtr Bela and her boyfriend x2 weeks ago, patient Independent normally. Dtr reports patient has a hospital bed but the one side remains down and not sure if it is broken or too difficult for patient to get up herself and states patient fell out of bed. PCP: Used to to [facility] but he has retired, is seeing another provider in this same practice- not sure of the name. Unsure of the company the hospital bed is through but states that she believes her mother knows and has the contact information and advised to call to see if the bed needs fixed or traded for a new one. Specialists: Pain- Dr Deal Preferred Pharmacy: [facility] Insurance: MMO MCR Rx Benefit:?Yes ?LNOK: Dtr Bela Perales LW/HPOA: Yes both on file at [facility], HPOA- Dtr Bela Perales Living Arrangements:? Lives with Dtloida Cramer and her boyfriend in a H, ramp to enter ADL?s: WC/Bed bound, patient Independent with her ADLs, transfers self. H/o Paralyzed waist down. Transportation: Patient has a Van to accommodate her power WC and her Dtr or a friend drives patient van. States if they are unavailable could be some issues. Discussed applying and see if patient qualifies for [facility] as a secondary insurance as this would provide additional benefits/services such as transportation needs. DME: Power assist WC, Transfer Board, Shower Chair, Hospital Bed, Trapeze bar, Tens Unit, CPAP-patient does not use. HHC: Past, cannot recall agency SNF: Past at [facility], [facility] Goal: Home and does not think will have any needs but also trying to see what is going on- still being worked up in hospital. Roberth any issues, questions, or concerns with DC planning at this time. Aware CM will continue to follow for any emerging needs. DC PLAN: Home and needs TBD. SILVANO Clay
[2019-04-18] MEDS: Ceftriaxone 1 GM/50 ML BAG IV (11:46)
--- NOTE | 2019-04-18 13:23 | PCM.HP.STD ---
History of Present Illness Date of Admission: 04/18/19 Chief Complaint: Mental status changes The patient is a 68 year old Female, who is well-known to me was admitted to the hospital due to mental status changes, [according to the daughter who most of her history was obtained the patient woke up this morning spoke slowly and her body started to shake to what appears to be a seizure and then was unable to communicate any further, she was then sent to the ER for further evaluation] Past Medical History Past Medical History (Chronic Problems): Chronic Problems Degeneration of intervertebral disc of lumbosacral region (Chronic) Central pain syndrome (Chronic) Chronic central neuropathic pain (Chronic) Chronic abdominal pain (Chronic) Neurogenic bladder (Chronic) Paraplegia (Chronic) G82.20 due to transverse myelitis Anxiety and depression (Chronic) 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 History of Insomnia (Chronic) Muscle spasm (Chronic) Neuropathic pain (Chronic) Urinary retention (Chronic) Chronic constipation (Chronic) Depression (Chronic) Anxiety (Chronic) Open wound of genital labia (Chronic) Constipation (Chronic) Anemia (Chronic) Pressure sore of left ischium, stage 4 (Chronic) L89.324 Pressure sore of left ischium, stage 3 (Chronic) Left perineal ischial pressure ulcer (Chronic) Self-catheterizes urinary bladder (Chronic) Chronic anemia (Chronic) Chronic back pain (Chronic) History fluid overload, systolic CHF (Chronic) Allergies No Known Allergies Allergy (Verified 12/02/18 21:22) Home Medications: Ambulatory Orders Medication Instructions Recorded Naproxen [Naprosyn] 375 mg PO BID 07/19/15 traZODone [Desyrel] 100 mg PO QHS #30 tablet 09/14/15 Senna/Docusate Sodium [Senokot-S] 2 tablet PO BID PRN 08/17/17 Trimethoprim [Trimpex] 100 mg PO DAILY 01/14/18 Polyethylene Glycol 3350 [Miralax] 17 gm PO DAILY PRN PRN 12/02/18 Albuterol Aerosols [Ventolin 2.5 mg INHALATION Q6HWA.RT #1 04/21/19 Aerosols] vial.neb. 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 ACOUSTIC ENGINEER history Lives: With Family Smoking Status: Unknown if ever smoked Tobacco Use: Non-smoker Alcohol: None Drugs: None - *Family History Maternal History Items: Heart Disease Paternal History Items: Cancer Patient Problems: Active and Suspected Problems Pneumonia (Acute) Encephalopathy acute (Acute) secondary to pain pump medication (Prialt) Altered level of consciousness (Acute) - Physical Exam Vitals/I&O's: Vital Signs Temp Pulse Resp BP Pulse Ox 98.1 F 80 16 100/61 97 04/18/19 08:47 04/18/19 08:59 04/18/19 08:47 04/18/19 08:47 04/18/19 08:47 Oxygen Flow Rate (L/min) 2 Oxygen Delivery Method Nasal Cannula Weight: 67.3 kg Body Mass Index (BMI) 27.1 Finger Stick Blood Glucose 130 Intake and Output for Last 24 Hours 04/16/19 04/17/19 04/18/19 23:59 23:59 23:59 Intake Total 2049 Balance 2049 General: Oriented x3, Cooperative, Well developed - UNRESPONSIVE TO COMAND OR STIMULI, PUPILS NON DILATED, REACTIVE TO LIGHT Laboratory Results 04/18/19 05:12: WBC 1.8 L, RBC 3.97 L, Hgb 12.3, Hct 37.1, MCV 93.5, MCH 31.0, MCHC 33.2, RDW Std Deviation 48.7 H, RDW Coeff of [place] 14.3, Plt Count 169, MPV 10.5, Immature Gran % (Auto) 0.000, Neut % (Auto) 67.8, Lymph % (Auto) 30.6, Day % (Auto) 1.1, Eos % (Auto) 0.5, Baso % (Auto) 0.0, Absolute Neuts (auto) 1.2 L, Absolute Lymphs (auto) 0.56 L, Nucleated RBC % 0, Differential Comment SCANNED, Diff Path Review September04/18/19 05:12: Sodium 133 L, Potassium 3.0 L, Chloride 99, Carbon Dioxide 28.0, Anion Gap 6, BUN 16, Creatinine 1.09 H, Estim Creat Clear Calc 43.25, Est GFR (MDRD) Af Amer 64, Est GFR (MDRD) Non-Af 53 L, BUN/Creatinine Ratio 14.7, Glucose 128 H, Calcium 8.4 L, Troponin I < 0.015 04/18/19 05:12: Ethyl Alcohol < 3.0 04/18/19 05:23: POC Glucose 130 H 04/18/19 05:50: Lactic Acid 1.7 04/18/19 07:30: Urine Color Yellow, Urine Clarity Cloudy, Urine pH 6.0, Ur Specific [place] 1.010, Urine Protein 30 H, Urine Glucose (UA) Normal, Urine Ketones Negative, Urine Occult Blood 50 H, Urine Nitrite Negative, Urine Bilirubin Negative, Urine Urobilinogen Normal, Ur Leukocyte Esterase 500 H, Urine RBC 0-5 SEEN, Urine WBC 5-10 SEEN, Ur Squamous Epith Cells 0-5 SEEN, Ur Transition Epith Cell 0-5 SEEN, Urine Bacteria 3+, Hyaline Casts 0-5 SEEN, Urine Mucus 0 SEEN 04/18/19 08:10: Urine Opiates Screen POSITIVE H, Urine Methadone Screen NEGATIVE, Ur Barbiturates Screen NEGATIVE, Ur Phencyclidine Scrn NEGATIVE, Ur Amphetamines Screen NEGATIVE, U Methamphetamin-MDMA POSITIVE H, U Benzodiazepines Scrn NEGATIVE, Urine Cocaine Screen NEGATIVE, U Cannabinoids Screen NEGATIVE, Ur Drug Screen Comment Current Medications Heparin Sodium (Porcine) (Heparin Na) 5,000 unit SC Q12 [facility] Last Admin: 04/18/19 10:49 Dose: 5,000 unit Documented by: Potassium Chloride/Sodium Chloride () 1,000 mls @ 150 mls/hr IV .Q6H40M [facility] Last Admin: 04/18/19 10:49 Dose: 150 mls/hr Documented by: Ceftriaxone Sodium (Rocephin) 1 gm in 50 mls @ 100 mls/hr IV Q24 [facility] Last Infusion: 04/18/19 13:15 Dose: Infused Documented by: Sodium Chloride () 10 - 40 ml IV UD PRN PRN Reason: SALINE FLUSH Assessment/Plan All Active Problems Pneumonia (Acute) Encephalopathy acute (Acute) Altered level of consciousness (Acute) Elevated troponin (Resolved) Sepsis (Resolved) SVT (supraventricular tachycardia) (Resolved) UTI (urinary tract infection) (Acute) Hypokalemia (Acute) Leukopenia (Acute) Acute osteomyelitis of left pelvic region (Resolved) Hip fracture (Resolved) Hypotension (Acute) UTI (lower urinary tract infection) (Acute) Non-STEMI (non-ST elevated myocardial infarction) (Resolved) At this current time her intrathecal Prialt pump was decreased to 0.125 mcg per day to further rule out Prialt as a cause for her altered mental status at the meantime after discussing it with her admitting physician her medication will be held for further evaluation further work-up for possible seizure related post icterus status possible baclofen withdrawal possible MRI of the brain as well as an EEG and a neurology consult for further evaluation of her altered mental status, I have discussed the above with both of her daughters.
[2019-04-18 14:20] LABS: Pathologist Review Reviewed
--- NOTE | 2019-04-18 18:35 | CCHN_ITS ---
Hospitalist Note Patient was seen and examined this afternoon, I was called by nursing to reevaluate the patient due to the family's concern that she needed an MRI of the brain to rule out stroke. They were also concerned that her abdomen was distended-I examined her and she was more alert than she was this morning but still not able to verbalize to me, she did respond to tactile stimuli but was moving her head back and forth at times and her upper extremity was twitching at times. On examination of the abdomen, abdomen is tympanic and slightly tender, she did have bowel sounds, patient is on oxygen and I think a lot of her abdominal distention is probably from her oxygen use. Nurse is going to try to wean her off the oxygen. Her abdomen will continue to be monitored tonight. I have decided to order an MRI of the brain tonight without contrast, I think this is reasonable to order to rule out any intracranial process, CT of her head this morning was unremarkable. I still think it is probable that the patient's altered mental status is from the medication she is receiving in her pain pump, this was essentially stopped today by the device rep on instructions by pain management. Late this afternoon I talked with Dr. Deal (pain management) concerning her status, he felt it was likely that her altered mental status was from the medication from her pain pump but he did not have any objection to ordering an MRI to rule out a stroke. Patient is also tachycardic late this afternoon with a pulse rate of 120, it appears to be a sinus tach, I am not sure what is causing the tachycardia- patient is no longer on clonidine and it may have something to do with withdrawal from clonidine- I have discussed the case with the night hospitalist (Dr. Wilder) who will reevaluate the patient later on tonight. For now the patient's vital signs appear to be stable with the exception of an increased heart rate, she has good urine output and she is not hypotensive.
--- NOTE | 2019-04-18 20:34 | NURSING ---
family requesting all four side rails to be up. This RN explained that all four side rails is considered a restraint. Family remains okay with all four side rails being up at this time.
[2019-04-19] VITALS (9 sets, daily range): BP systolic 119–141; BP diastolic 70–81; PULSE 97–140; RESP 16–19; TEMP 36.7–37.2; O2SAT 92–97
[2019-04-19 06:54] LABS: Absolute Lymphocyte Count 0.26 X10^3/uL (0.83-4.51); Absolute Neutrophil Count 5.4 X10^3/uL (2.0-7.7); Basophil# 0.04 X10^3/uL; Basophil% 0.6 % (0-1); Eosinophil# 0.23 X10^3/uL; Eosinophils% 3.7 % (0-5); Hematocrit 36.3 % (37-47); Lymphocyte # 0.26 X10^3/ul (4.0); Lymphocyte % 4.2 % (19-41); Mean Corp Hgb Conc 33.1 g/dL (32-36); Mean Corpuscular Hgb 30.7 pg (27.0-32.0); Mean Corpuscular Volume 92.8 fL (81-99); Mean Platelet Vol. 11.2 fl (6.2-12.0); Monocyte# 0.26 X10^3/uL; Monocyte% 4.2 % (0-10); NRBC Flagged by Analyzer 0 % (0-5); Neutrophil % 86.8 % (47-70); POSITIVE DIFFERENTIAL YES; POSITIVE MORPHOLOGY YES; Platelet Count 179 K/mm3 (150-450); RBC Distribution Width CV 14.4 % (11.6-14.6); RBC Distribution Width SD 48.6 fl (35.1-43.9); Red Blood Count 3.91 M/mm3 (4.2-5.4); White Blood Count 6.2 K/mm3 (4.4-11.0)
[2019-04-19 07:21] LABS: Differential Indicated SCAN CRITERIA MET
[2019-04-19 07:27] LABS: Anion Gap 5 (5-15); BUN 11 mg/dL (7-18); BUN/Creat Ratio 17.9 RATIO (10-20); Calcium,Total 7.7 mg/dL (8.5-10.1); Chloride 111 mmol/L (98-107); Creatinine, Serum 0.61 mg/dL (0.55-1.02); EST Glomerular Filtration Rate 103 mL/min (>60); Est Glom Filt Rate - Afr Amer 125 mL/min (>60); Estimated Creatinine Clearance 43.18 ml/min; Glucose 78 mg/dL (74-106); Potassium 3.9 mmol/L (3.5-5.1); Sodium Level 141 mmol/L (136-145)
[2019-04-19 07:45] LABS: Differential Comment SCANNED
[2019-04-19] MEDS: Ceftriaxone 1 GM/50 ML BAG IV (08:17)
[2019-04-19] MEDS: Heparin Injection (Vial) 5,000 UNIT/ML VIAL 5000 UNIT SC ×2 (08:17→21:08)
[2019-04-19 08:19] LABS: Ammonia < 10.0 umol/L (11-32)
[2019-04-19] MEDS: Naproxen 375 MG Tablet PO ×2 (11:01→16:14)
[2019-04-19] MEDS: oxyCODONE 5 MG Tablet 10 MG PO ×3 (11:01→21:07)
[2019-04-19] MEDS: Gabapentin 800 MG Tablet PO ×3 (11:49→21:07)
[2019-04-19] MEDS: Baclofen 10 MG Tablet PO ×2 (11:49→21:07)
[2019-04-19] MEDS: Trimethoprim 100 MG Tablet PO (16:14)
[2019-04-19] MEDS: Senna/Docusate Sodium 1 Tablet 2 TABLET PO (17:24)
--- NOTE | 2019-04-19 18:59 | PN_ITS ---
Patient Problems: Active and Suspected Problems Altered level of consciousness (Acute) Subjective: And examined today, I talked with the patient's sister who is in the room this morning as well as the patient's daughter who is in her room this afternoon. Patient is more alert today, she is sitting up in her bed unassisted and appears to be uncomfortable from pain, I have elected to start her home medications again, I have decided to leave her off of clonidine. I talked with pain management today at length, patient's MRI of the brain yesterday was negative for acute process. Patient remains tachycardic, this may be as a result of opiate withdrawal, again I have decided to start the patient back on her medications. She appears asymptomatic with a tachycardia, I will reevaluate her tomorrow. - Physical Exam Vitals/I&O's: Vital Signs Temp Pulse Resp BP Pulse Ox 98.3 F 110 H 16 127/70 H 95 04/19/19 15:04 04/19/19 15:04 04/19/19 15:04 04/19/19 15:04 04/19/19 15:04 Oxygen Flow Rate (L/min) 2 Oxygen Delivery Method Room Air Weight: 67.3 kg Body Mass Index (BMI) 27.1 Finger Stick Blood Glucose 130 Intake and Output for Last 24 Hours 04/17/19 04/18/19 04/19/19 23:59 23:59 23:59 Intake Total 3792.5 / 3792.5 2925.0 / 2925.0 Output Total 650 / 650 1100 / 1100 Balance 3142.5 / 3142.5 1825.0 / 1825.0 General: Alert, Oriented x3, Cooperative, No apparent distress, Well developed HEENT: Atraumatic, PERRLA, EOMI, Normocephalic Oral: Moist Mucosa Neck: Supple, No JVD, Negative Carotid Bruits, Trachea Midline, Thyroid Normal Size and Texture Lungs: Clear to auscultation, Normal air movement, No rhonchi, No wheeze, Diminished - Diminished breath sounds bilaterally Cardiovascular: Regular rate, Regular Rhythm, Normal S1, Normal S2, No murmurs, PMI Normal, Tachycardic Abdomen: Bowel Sounds Present, Soft, Non Tender, Non-Distended, No hernias noted Extremities: Capillary Refill Less than 3 Seconds, - - Muscle atrophy is noted over both legs Skin: No rashes, No breakdown Musculoskeletal: No Tenderness to Palpation of Joints or Extremities Neurological: Cranial nerves II-XII grossly intact Psych/Mental Status: Appropriate, Flat Affect Microbiology Past 72 Hours 04/18/19 07:30 Urine Catheter - Finch Urine Culture - Preliminary Presumptive E. coli Laboratory Results 04/19/19 06:03: WBC 6.2, RBC 3.91 L, Hgb 12.0, Hct 36.3 L, MCV 92.8, MCH 30.7, MCHC 33.1, RDW Std Deviation 48.6 H, RDW Coeff of Pretty 14.4, Plt Count 179, MPV 11.2, Immature Gran % (Auto) 0.500, Neut % (Auto) 86.8 H, Lymph % (Auto) 4.2 L, Vermilion % (Auto) 4.2, Eos % (Auto) 3.7, Baso % (Auto) 0.6, Absolute Neuts (auto) 5.4, Absolute Lymphs (auto) 0.26 L, Nucleated RBC % 0, Differential Comment SCANNED 04/19/19 06:03: Sodium 141, Potassium 3.9, Chloride 111 H, Carbon Dioxide 25.0, Anion Gap 5, BUN 11, Creatinine 0.61, Estim Creat Clear Calc 43.18, Est GFR (MDRD) Af Amer 125, Est GFR (MDRD) Non-Af 103, BUN/Creatinine Ratio 17.9, Glucose 78, Calcium 7.7 L 04/19/19 07:30: Ammonia < 10.0 L Current Medications Baclofen (Lioresal) 10 mg PO TID [facility] Last Admin: 04/19/19 11:49 Dose: 10 mg Documented by: Gabapentin (Neurontin) 800 mg PO 4X/DAYCM [facility] Last Admin: 04/19/19 16:14 Dose: 800 mg Documented by: Heparin Sodium (Porcine) (Heparin Na) 5,000 unit SC Q12 [facility] Last Admin: 04/19/19 08:17 Dose: 5,000 unit Documented by: Potassium Chloride/Sodium Chloride () 1,000 mls @ 150 mls/hr IV .Q6H40M [facility] Last Admin: 04/19/19 15:06 Dose: 150 mls/hr Documented by: Ceftriaxone Sodium (Rocephin) 1 gm in 50 mls @ 100 mls/hr IV Q24 [facility] Last Infusion: 04/19/19 09:28 Dose: Infused Documented by: Naproxen (Naprosyn) 375 mg PO BIDCM [facility] Last Admin: 04/19/19 16:14 Dose: 375 mg Documented by: Oxycodone HCl (Oxyir) 10 mg PO 06,12,17,21 [facility] Last Admin: 04/19/19 16:14 Dose: 10 mg Documented by: Senna/Docusate Sodium (Senokot-S, Leyla-Colace) 2 tablet PO BID PRN PRN Reason: Constipation Last Admin: 04/19/19 17:24 Dose: 2 tablet Documented by: Sodium Chloride () 10 - 40 ml IV UD PRN PRN Reason: SALINE FLUSH Trazodone HCl (Desyrel) 100 mg PO QHS [facility] Trimethoprim (Trimpex) 100 mg PO DAILY [facility] Last Admin: 04/19/19 16:14 Dose: 100 mg Documented by: Medical Necessity - Tobacco Use Smoking Status: Unknown if ever smoked Tobacco Use: Non-smoker Assessment/Plan All Active Problems Altered level of consciousness (Acute) Elevated troponin (Resolved) Sepsis (Resolved) SVT (supraventricular tachycardia) (Resolved) UTI (urinary tract infection) (Acute) Hypokalemia (Acute) Leukopenia (Acute) Acute osteomyelitis of left pelvic region (Resolved) Hip fracture (Resolved) Hypotension (Acute) UTI (lower urinary tract infection) (Acute) Non-STEMI (non-ST elevated myocardial infarction) (Resolved) #1 acute encephalopathy-etiology unclear but strongly suspect medication reaction-this appears to be clearing at this time, continue supportive care. #2 urinary tract infection-this is likely secondary to self-catheterization, this is difficult to evaluate being that the patient has a conduit made from her intestine that is used to join her bladder to her stoma. I think it is diane to continue a 5 to 7-day course of antibiotics #3 paraplegia secondary to transverse myelitis-chronic #4 chronic pain syndrome #5 leukopenia-etiology unclear-this has corrected #6 hypokalemia-corrected at this time #7 chronic depression Code Visit Inpatient E&M: 64611 Subs Hosp L2
[2019-04-19] MEDS: traZODone 100 MG Tablet PO (21:07)
[2019-04-20] VITALS (15 sets, daily range): BP systolic 138–165; BP diastolic 79–109; PULSE 122–136; RESP 16–26; TEMP 36.6–37.2; O2SAT 91–97
[2019-04-20] MEDS: Baclofen 10 MG Tablet PO ×2 (05:00→21:20)
[2019-04-20] MEDS: oxyCODONE 5 MG Tablet 10 MG PO ×2 (05:00→11:48)
[2019-04-20] MEDS: Trimethoprim 100 MG Tablet PO (08:57)
[2019-04-20] MEDS: Gabapentin 800 MG Tablet PO ×4 (08:57→21:20)
[2019-04-20] MEDS: Heparin Injection (Vial) 5,000 UNIT/ML VIAL 5000 UNIT SC ×2 (08:57→21:19)
[2019-04-20] MEDS: Ceftriaxone 1 GM/50 ML BAG IV (08:58)
[2019-04-20] MEDS: Naproxen 375 MG Tablet PO ×2 (09:00→17:02)
[2019-04-20] MEDS: Senna/Docusate Sodium 1 Tablet 2 TABLET PO (11:10)
[2019-04-20] MEDS: Metoprolol Tartrate 25 MG Tablet PO (11:10)
[2019-04-20] MEDS: 0.9% Saline Lock 10 ML Syringe IV ×2 (12:48→21:20)
[2019-04-20] MEDS: Ondansetron 4 MG/2 ML Vial IV (12:48)
--- NOTE | 2019-04-20 14:57 | CASEMGMT ---
EFE BASS NOTE: PT/OT notes have been reviewed--further therapy recommended. EFE CM to room to talk with pt. Pt made aware of therapy's recommendations and she is agreeable to [facility]. Given list of local [facility] agency's for pt to review. She states she would like to take some time to look over the list before deciding. CM to make referral to [facility] of pt's choice once she decides on what agency she wants. Hema ASH RN, CM
--- NOTE | 2019-04-20 15:42 | RAD_ITS ---
STUDY: X-RAY CHEST REASON FOR EXAM: Female, 68 years old. Tachypnea TECHNIQUE: Single AP portable view of the chest. COMPARISON: CR Chest Apr 18 2019 5:26am FINDINGS: EKG leads project over the chest. There is airspace consolidation involving the left lower lobe with obscuration left hemidiaphragm. Small left pleural effusion. Mild infiltrate in the right lung base also identified. Normal size heart. Normal mediastinum and olaf. Normal visualized pulmonary arteries. Normal visualized aortic arch and descending thoracic aorta. No acute bony process. There is no demonstrated abnormality of the visualized soft tissue structures of the upper abdomen. RAD/Chest 1 View (Portable) IMPRESSION: 1. Unfavorable change. Left lower lobe pneumonia. Small effusion. 2. Developing right lower lobe atelectasis or pneumonia. Electronically Signed: Joss Mallory MD (Brooks) at 16:44 EST , Service support ,
[2019-04-20] MEDS: oxyCODONE 5 MG Tablet 15 MG PO ×2 (17:02→21:19)
--- NOTE | 2019-04-20 18:21 | PN_ITS ---
Patient Problems: Active and Suspected Problems Altered level of consciousness (Acute) Subjective: Patient was seen and examined today, she is requiring 2 L of oxygen to maintain her pulse ox. I have decided to stop her IV fluids at this time and obtain a chest x-ray, chest x-ray showed evidence of a left lower lobe infiltrate-po ssible pneumonia-and a right lower lobe developing infiltrate. I have decided to change the patient's antibiotics to Zosyn and stop her Rocephin. Patient's urine culture grew out E. coli. I also placed the patient on aerosol treatments, I ordered a CBC for today and repeat labs tomorrow as well as a chest x-ray. I talked briefly with pain management today, pain management was not planning on adjusting her pain medications until she is seen as an outpatient, however, patient is complaining that her pain is severe today and I have elected to increase her OxyIR-pain management is okay with this. - Physical Exam Vitals/I&O's: Vital Signs Temp Pulse Resp BP Pulse Ox 99.0 F 127 H 24 H 156/109 H 97 04/20/19 18:00 04/20/19 18:00 04/20/19 18:00 04/20/19 18:00 04/20/19 18:00 Oxygen Flow Rate (L/min) 2 Oxygen Delivery Method Nasal Cannula Weight: 67.3 kg Body Mass Index (BMI) 27.1 Finger Stick Blood Glucose 130 Intake and Output for Last 24 Hours 04/18/19 04/19/19 04/20/19 23:59 23:59 23:59 Intake Total 3792.5 / 3792.5 4182.5 / 4182.5 3257.5 / 3257.5 Output Total 650 / 650 1270 / 1270 450 / 450 Balance 3142.5 / 3142.5 2912.5 / 2912.5 2807.5 / 2807.5 General: Alert, Oriented x3, Cooperative, Well developed HEENT: Atraumatic, PERRLA, EOMI, Normocephalic Oral: Moist Mucosa Neck: Supple, Trachea Midline, Thyroid Normal Size and Texture Lungs: Clear to auscultation, No rhonchi, No wheeze, No rales, Diminished - Diminished air movement bilaterally Cardiovascular: Regular rate, No murmurs Abdomen: Bowel Sounds Present, Soft, Non Tender, Non-Distended Extremities: No clubbing, No cyanosis, Capillary Refill Less than 3 Seconds, - - Atrophy of both legs is noted Skin: No rashes, No breakdown Musculoskeletal: No Tenderness to Palpation of Joints or Extremities Neurological: Cranial nerves II-XII grossly intact, Neuro grossly intact Psych/Mental Status: Normal Affect, Appropriate, Alert and oriented to time, place, person, mood and affect Microbiology Past 72 Hours 04/18/19 05:35 Blood Culture (Wb) - Anticubital Right Blood Culture - Preliminary No growth in 48 hours. 04/18/19 05:50 Blood Culture (Wb) - Right Hand Blood Culture - Preliminary No growth in 48 hours. 04/18/19 07:30 Urine Catheter - Finch Urine Culture - Final Presumptive E. coli Current Medications Albuterol Sulfate (Ventolin Aerosols) 2.5 mg INHALATION Q6H.RT [facility] Baclofen (Lioresal) 10 mg PO TID [facility] Last Admin: 04/20/19 15:15 Dose: Not Given Documented by: [facility] ([facility]) [facility] Admin: 04/20/19 17:02 Dose: 800 mg Documented by: Heparin Sodium (Porcine) (Heparin Na) 5,000 unit SC Q12 [facility] Last Admin: 04/20/19 08:57 Dose: 5,000 unit Documented by: Piperacillin Sod/Tazobactam (Sod 3.375 gm/ Sodium Chloride) 50 mls @ 12.5 mls/hr IV Q8 [facility] Metoprolol Tartrate (Lopressor (Beta Kenan)) 50 mg PO BID [facility] ([facility]rosyn) [facility] Last Admin: 04/20/19 17:02 Dose: 375 mg Documented by: Ondansetron HCl (Zofran) 4 mg IV Q6H PRN PRN PRN Reason: NAUSEA/VOMITING Last Admin: 04/20/19 12:48 Dose: 4 mg Documented by: Oxycodone HCl (Oxyir) 15 mg PO 06,12,17,21 [facility] Last Admin: 04/20/19 17:02 Dose: 15 mg Documented by: Senna/Docusate Sodium (Senokot-S, Leyla-Colace) 2 tablet PO BID PRN PRN Reason: Constipation Last Admin: 04/20/19 11:10 Dose: 2 tablet Documented by: Sodium Chloride () 10 - 40 ml IV UD PRN PRN Reason: SALINE FLUSH Last Admin: 04/20/19 12:48 Dose: 20 ml Documented by: Trazodone HCl (Desyrel) 100 mg PO QHS [facility] Last Admin: 04/19/19 21:07 Dose: 100 mg Documented by: Trimethoprim (Trimpex) 100 mg PO DAILY [facility] Last Admin: 04/20/19 08:57 Dose: 100 mg Documented by: Medical Necessity - Tobacco Use Smoking Status: Unknown if ever smoked Tobacco Use: Non-smoker Assessment/Plan All Active Problems Altered level of consciousness (Acute) Elevated troponin (Resolved) Sepsis (Resolved) SVT (supraventricular tachycardia) (Resolved) UTI (urinary tract infection) (Acute) Hypokalemia (Acute) Leukopenia (Acute) Acute osteomyelitis of left pelvic region (Resolved) Hip fracture (Resolved) Hypotension (Acute) UTI (lower urinary tract infection) (Acute) Non-STEMI (non-ST elevated myocardial infarction) (Resolved) #1 acute encephalopathy-etiology unclear but strongly suspect medication re action-this appears to be clearing at this time, continue supportive care. #2 left lower lobe infiltrate suggestive of pneumonia, right lower lobe infiltrate suggestive of either pneumonia or atelectasis-antibiotic will be changed to Zosyn, aerosol treatments will be instituted, chest x-ray will be repeated tomorrow #3 urinary tract infection-this is likely secondary to self-catheterization, this is difficult to evaluate being that the patient has a conduit made from her intestine that is used to join her bladder to her stoma. I think it is diane to continue a 5 to 7-day course of antibiotics #4 paraplegia secondary to transverse myelitis-chronic #5 chronic pain syndrome #6 leukopenia-etiology unclear-this has corrected #7 hypokalemia-corrected at this time #8 chronic depression #9 hypertension-I started the patient back on metoprolol today Code Visit Inpatient E&M: 26238 [facility] Hosp L2
[2019-04-20 19:06] LABS: Hematocrit 31.8 % (37-47); Monocyte% 2.2 % (0-10); NRBC Flagged by Analyzer 0 % (0-5); POSITIVE DIFFERENTIAL YES; POSITIVE MORPHOLOGY YES
[2019-04-20 19:16] LABS: Differential Indicated SCAN CRITERIA MET
[2019-04-20 19:57] LABS: Red Blood Count 3.48 M/mm3 (4.2-5.4)
[2019-04-20 19:58] LABS: Hemoglobin 10.6 g/dL (12.0-15.0); Mean Corp Hgb Conc 33.3 g/dL (32-36); Mean Corpuscular Hgb 30.5 pg (27.0-32.0); Mean Corpuscular Volume 91.4 fL (81-99); RBC Distribution Width SD 49.9 fl (35.1-43.9)
[2019-04-20 19:59] LABS: Basophil% 0.8 % (0-1); Eosinophils% 8.4 % (0-5); Lymphocyte % 2.6 % (19-41); Mean Platelet Vol. 12.4 fl (6.2-12.0); Neutrophil % 85.7 % (47-70); Platelet Count 124 K/mm3 (150-450)
[2019-04-20 20:00] LABS: Lymphocyte # 0.36 X10^3/ul (4.0); Neutrophil # 11.99 X10^3/uL (2.7-7.7)
[2019-04-20 20:01] LABS: Absolute Lymphocyte Count 0.36 X10^3/uL (0.83-4.51); Basophil# 0.11 X10^3/uL; Differential Comment SCANNED; Eosinophil# 1.17 X10^3/uL; Monocyte# 0.31 X10^3/uL
[2019-04-20] MEDS: Metoprolol Tartrate 50 MG Tablet PO (20:11)
[2019-04-20] MEDS: Fleet Enema 1 ML RECTAL (20:12)
--- NOTE | 2019-04-20 20:30 | NURSING ---
pt given the fleets but with min results noted. Pt did not hold it and just ran out.
[2019-04-20] MEDS: traZODone 50 MG Tablet 150 MG PO (21:20)
[2019-04-21] VITALS (7 sets, daily range): BP systolic 124–137; BP diastolic 68–74; PULSE 114–125; RESP 20; TEMP 36.5–36.6; O2SAT 96–100
--- NOTE | 2019-04-21 02:43 | NURSING ---
PT JOSEPH HAS NO URINE IN JOSEPH NOTED. BALLOON CHECKED AND 10CC IN BALLOON. PULLED BACK ON URINE AND URINE CAME FLOWING. PT HAD A LARGE AMOUNT OF MUCUS SHREDS IN URINE. JOSEPH THEN EMPTIED FOR 1000CC . CATH FLOWING WELL NOW
[2019-04-21] MEDS: oxyCODONE 5 MG Tablet 15 MG PO ×2 (05:13→11:52)
[2019-04-21] MEDS: Baclofen 10 MG Tablet PO ×2 (05:13→13:25)
[2019-04-21] MEDS: 0.9% Saline Lock 10 ML Syringe IV ×2 (05:18→13:26)
--- NOTE | 2019-04-21 05:55 | RAD_ITS ---
STUDY: X-RAY CHEST REASON FOR EXAM: Female, 68 years old. Pneumonia TECHNIQUE: Single AP portable view of the chest. COMPARISON: 04/20/2019 FINDINGS: There are superimposed monitor leads. Continued elevation right hemidiaphragm, atelectatic changes in the right base, airspace disease in the left base obscuring the diaphragm and retrocardiac detail. Possible small left pleural effusion. There is borderline cardiomegaly. Normal mediastinum and olaf. Normal visualized pulmonary arteries. Normal visualized aortic arch and descending thoracic aorta. Normal visualized thoracic spine. Normal visualized ribs, clavicles, and shoulders. Air distended stomach. RAD/Chest 1 View (Portable) IMPRESSION: Greater right than right basilar airspace opacification without change likely pneumonia, possible atelectasis in the right base. Electronically Signed: Wanda Cruz MD at 4:52 EST , Service support ,
[2019-04-21 07:09] LABS: Absolute Lymphocyte Count 0.41 X10^3/uL (0.83-4.51); Absolute Neutrophil Count 11.9 X10^3/uL (2.0-7.7); Basophil# 0.04 X10^3/uL; Basophil% 0.3 % (0-1); Eosinophil# 0.06 X10^3/uL; Eosinophils% 0.5 % (0-5); Hematocrit 28.8 % (37-47); Hemoglobin 9.9 g/dL (12.0-15.0); Lymphocyte # 0.41 X10^3/ul (4.0); Lymphocyte % 3.2 % (19-41); Mean Corp Hgb Conc 34.4 g/dL (32-36); Mean Corpuscular Hgb 31.3 pg (27.0-32.0); Mean Corpuscular Volume 91.1 fL (81-99); Mean Platelet Vol. 11.8 fl (6.2-12.0); Monocyte% 3.1 % (0-10); NRBC Flagged by Analyzer 0 % (0-5); Neutrophil # 11.87 X10^3/uL (2.7-7.7); Neutrophil % 92.6 % (47-70); POSITIVE DIFFERENTIAL YES; POSITIVE MORPHOLOGY YES; Platelet Count 153 K/mm3 (150-450); RBC Distribution Width CV 15.1 % (11.6-14.6); RBC Distribution Width SD 50.3 fl (35.1-43.9); Red Blood Count 3.16 M/mm3 (4.2-5.4); White Blood Count 12.8 K/mm3 (4.4-11.0)
[2019-04-21 07:16] LABS: Differential Indicated SCAN CRITERIA MET
[2019-04-21] MEDS: Ondansetron 4 MG/2 ML Vial IV (07:18)
[2019-04-21 07:40] LABS: Hypochromasia 1+; Platelet Estimate ADEQUATE (ADEQ)
[2019-04-21] MEDS: Trimethoprim 100 MG Tablet PO (09:51)
[2019-04-21] MEDS: Naproxen 375 MG Tablet PO (09:51)
[2019-04-21] MEDS: Metoprolol Tartrate 50 MG Tablet PO (09:51)
[2019-04-21] MEDS: Gabapentin 800 MG Tablet PO ×2 (09:51→11:53)
[2019-04-21] MEDS: Heparin Injection (Vial) 5,000 UNIT/ML VIAL 5000 UNIT SC (09:51)
--- NOTE | 2019-04-21 11:22 | CASEMGMT ---
Per Dr. Olivera, pt and daughter are agreeable to SNF at this time. Tito MARVIN aware, voices understanding. Tawanda WILKS CM
--- NOTE | 2019-04-21 11:26 | CASEMGMT ---
Addendum entered by Clarice Higgins 04/21/19 13:06: [facility] can take pt today. SW completed hospital exemption in the [employer] system, faxed this along with all discharge instructions to [facility]. SW spoke w/pt, let her know [facility] can take her today. Her family is able to bring her to [facility] around 4 or 5pm. SW let RN here know anticipated time of pickup. 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 JOSE MIGUEL Carvalho Original Note: As per physician, pt now wants to go to custodial, preference is [facility] or [facility]. SW met w/pt in room, family present. Pt would prefer [facility], and if [facility] does not have a bed, [facility] would be her next choice. SW called [facility], faxed referral, message left. SW will await a return call. JOSE MIGUEL Carvalho
--- NOTE | 2019-04-21 11:46 | PCM.TXEXTCAR ---
- Diet 04/19/19 09:52 Diet: Regular Diet Is pt able to select menu?: Yes - Wound(s) RIGHT LEG Wound Type: Laceration - Therapies Physical Therapy: Eval and Treat Occupational Therapy: Eval and Treat - Problem/Diagnosis (1) Altered level of consciousness Status: Acute Current Visit: Yes (2) Pneumonia Status: Acute Current Visit: Yes (3) Encephalopathy acute Status: Acute Comment: secondary to pain pump medication (Prialt) Current Visit: Yes (4) Central pain syndrome Status: Chronic Current Visit: No (5) Paraplegia Status: Chronic Comment: G82.20 due to transverse myelitis Current Visit: No - Allergies/Procedures Done in Hospital Allergies/Adverse Reactions: Allergies No Known Allergies Allergy (Verified 12/02/18 21:22) Procedures: None - Type of Care/Length of Stay Estimated LOS: Convalescent Care Less Than 30 days Type of Care Needed: Skilled Rehab Potential: Good Prognosis: Good - Additional Orders/Day of Discharge Additional Orders: remove boswell per attending discretion-patient straight caths herself H&P will serve as current which was dated: 04/18/19 Day of Discharge: 04/21/19 - Follow Up Care Primary Care Physician: Coleman Michele MD [Primary Care Provider] - Please Follow Up With: Coleman Michele MD Please Follow Up With: Star Corona MD When: in 1-2 weeks
--- NOTE | 2019-04-21 13:57 | NURSING ---
Report called to [facility]. Report given to nurse Ana.
--- NOTE | 2019-04-21 14:08 | PHA.DC.MR ---
Pharmacy Service has performed discharge medication reconciliation for this patient upon transfer to [facility]. The patient's discharge medication list was reviewed for discrepancies and discrepancies were resolved. Home Medications Naproxen [Naprosyn] 375 mg PO BID 07/19/15 traZODone [Desyrel] 100 mg PO QHS #30 tablet 09/14/15 Senna/Docusate Sodium [Senokot-S] 2 tablet PO BID PRN 08/17/17 Trimethoprim [Trimpex] 100 mg PO DAILY 01/14/18 Polyethylene Glycol 3350 [Miralax] 17 gm PO DAILY PRN PRN 12/02/18 Albuterol Aerosols [Ventolin Aerosols] 2.5 mg INHALATION Q6HWA.RT #1 vial.neb. 04/21/19 Amox/Clavulanate Tablet [Augmentin Tablet] 875 mg PO Q12H #14 tab 04/21/19 Baclofen [Lioresal] 10 mg PO TID tab 04/21/19 Gabapentin [Neurontin] 800 mg PO 4X/DAYCM #30 tab 04/21/19 Metoprolol Tartrate [Lopressor (beta hardeep)] 50 mg PO BID tab 04/21/19 Oxycodone [Oxyir] 15 mg PO 06,12,17,21 3 Days #36 tab 04/21/19
--- NOTE | 2019-04-22 17:32 | PCM.DC.SUM ---
Discharge Date and Diagnosis Date of Admission: 04/18/19 Date of Discharge: 04/21/19 - Primary Discharge Diagnosis #1 acute toxic encephalopathy-etiology unclear but strongly suspect medication reaction due to Prialt #2 healthcare acquired pneumonia-not present on admission, etiology unknown #3 urinary tract infection-this is likely secondary to self-catheterization #4 paraplegia secondary to transverse myelitis-chronic #5 chronic pain syndrome #6 leukopenia-etiology unclear #7 hypokalemia-corrected at this time #8 chronic depression #9 hypertension - Secondary Discharge Diagnosis Chronic Problems Degeneration of intervertebral disc of lumbosacral region (Chronic) Central pain syndrome (Chronic) Chronic central neuropathic pain (Chronic) Chronic abdominal pain (Chronic) Neurogenic bladder (Chronic) Paraplegia (Chronic) G82.20 due to transverse myelitis Anxiety and depression (Chronic) 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 History of Insomnia (Chronic) Muscle spasm (Chronic) Neuropathic pain (Chronic) Urinary retention (Chronic) Chronic constipation (Chronic) Depression (Chronic) Anxiety (Chronic) Open wound of genital labia (Chronic) Constipation (Chronic) Anemia (Chronic) Pressure sore of left ischium, stage 4 (Chronic) L89.324 Pressure sore of left ischium, stage 3 (Chronic) Left perineal ischial pressure ulcer (Chronic) Self-catheterizes urinary bladder (Chronic) Chronic anemia (Chronic) Chronic back pain (Chronic) History fluid overload, systolic CHF (Chronic) Hospital Course and Treatment Operations: None Procedures: None Summary of Care Provided: The patient is a 68 year old F who was brought to the emergency room at [facility] for evaluation by squad after being found down at her home by her daughter, patient lives with her daughter and her daughter found the patient on the ground, she appeared lethargic and was confused when she was found. Evaluation in the ER showed the patient be lethargic, she did not respond to verbal or painful stimuli, she had a laceration over her right lower leg approximately 3 cm. Lab obtained in the emergency room showed a low white blood cell count 1.8, potassium was 3, urinalysis was obtained and it showed +3 bacteria, 5-10 WBCs. Patient's urine tox screen was positive for methamphetamines and opiates. The positive methamphetamines were felt to be secondary to trazodone usage at home. It was felt that the patient had toxic encephalopathy most probably secondary to Prialt that the patient receives through her implanted pain pump. I contacted pain management and the patient was admitted to PCU and monitored. Patient was kept on IV antibiotics for possible UTI. Patient's pain pump was turned down to essentially 0, she underwent an MRI of the brain later that day of admission which did not show any acute process. The next day, patient appeared to be more alert but was confused, she was seen by PT and OT, her oral medications were restarted. Patient had some problems with maintaining her oxygenation on room air and was found to have a left lower lobe infiltrate on her chest x-ray felt to be indicative of hospital-acquired pneumonia which was not present on admission. Patient's antibiotics were switched. Questions were carried out with the patient's family and patient agreed to go to an extended care facility short-term for skilled services. On 04/20/2019, patient was seen and examined:General: Alert, Oriented x3, Cooperative, Well developed HEENT: Atraumatic, PERRLA, EOMI, Normocephalic Oral: Moist Mucosa Neck: Supple, Trachea Midline, Thyroid Normal Size and Texture Lungs: Clear to auscultation, No rhonchi, No wheeze, No rales, Diminished - Diminished air movement bilaterally Cardiovascular: Regular rate, No murmurs Abdomen: Bowel Sounds Present, Soft, Non Tender, Non-Distended Extremities: No clubbing, No cyanosis, Capillary Refill Less than 3 Seconds, - - Atrophy of both legs is noted Skin: No rashes, No breakdown Musculoskeletal: No Tenderness to Palpation of Joints or Extremities Neurological: Cranial nerves II-XII grossly intact, Neuro grossly intact Psych/Mental Status: Normal Affect, Appropriate, Alert and oriented to time, place, person, mood and affect On 04/20/2019, patient was seen and examined and felt to be in stable condition for discharge to a group home facility. - Physical Exam Vitals/I&O's: Vital Signs Temp Pulse Resp BP Pulse Ox 97.7 F L 114 H 20 H 125/68 H 96 04/21/19 09:44 04/21/19 09:51 04/21/19 09:44 04/21/19 09:44 04/21/19 09:44 Oxygen Flow Rate (L/min) 2 Oxygen Delivery Method Room Air Weight: 67.3 kg Body Mass Index (BMI) 27.1 Finger Stick Blood Glucose 130 Intake and Output for Last 24 Hours 04/20/19 04/21/19 04/22/19 23:59 23:59 23:59 Intake Total 3257.5 / 3257.5 1039.17 / 1039.17 Output Total 450 / 450 1800 / 1800 Balance 2807.5 / 2807.5 -760.83 / -760.83 Microbiology Past 72 Hours 04/18/19 05:35 Blood Culture (Wb) - Anticubital Right Blood Culture - Preliminary No growth in 48 hours. 04/18/19 05:50 Blood Culture (Wb) - Right Hand Blood Culture - Preliminary No growth in 48 hours. 04/18/19 07:30 Urine Catheter - Finch Urine Culture - Final Presumptive E. coli Home Medications: Medications to take at Discharge Naproxen [Naprosyn] 375 mg PO BID 07/19/15 traZODone [Desyrel] 100 mg PO QHS #30 tablet 09/14/15 Senna/Docusate Sodium [Senokot-S] 2 tablet PO BID PRN 08/17/17 Trimethoprim [Trimpex] 100 mg PO DAILY 01/14/18 Polyethylene Glycol 3350 [Miralax] 17 gm PO DAILY PRN PRN 12/02/18 Albuterol Aerosols [Ventolin Aerosols] 2.5 mg INHALATION Q6HWA.RT #1 vial.neb. 04/21/19 Amox/Clavulanate Tablet [Augmentin Tablet] 875 mg PO Q12H #14 tab 04/21/19 Baclofen [Lioresal] 10 mg PO TID tab 04/21/19 Gabapentin [Neurontin] 800 mg PO 4X/DAYCM #30 tab 04/21/19 Metoprolol Tartrate [Lopressor (beta hardeep)] 50 mg PO BID tab 04/21/19 Oxycodone [Oxyir] 15 mg PO 06,12,17,21 3 Days #36 tab 04/21/19 Following Prescrptions Were Given to Patient: Amox/Clavulanate Tablet [Augmentin Tablet] 875 mg PO Q12H #14 tab Gabapentin [Neurontin] 800 mg PO 4X/DAYCM #30 tab Prescription Printed Oxycodone [Oxyir] 15 mg PO 06,12,17,21 3 Days #36 tab Prescription Printed Albuterol Aerosols [Ventolin Aerosols] 2.5 mg INHALATION Q6HWA.RT #1 vial.neb. Primary Care Physician: Coleman Michele MD [Primary Care Provider] - Please Follow Up With: Coleman Michele MD Please Follow Up With: Star Corona MD When: in 1-2 weeks Disposition: Retirement facility Minutes spent on discharge:: 34 Patient Condition:: Stable Medical Necessity - Tobacco Use Smoking Status: Unknown if ever smoked Tobacco Use: Non-smoker Meaningful Use Info Meaningful Use Diagnoses (Choose all that apply): None applicable Code Visit Inpatient E&M: 70551 Disch Hosp
== END 2019-04-21 15:16 | disposition skilled nursing facility (03) | DRG 91 ==
LOC: ED 06:33 → PCU 07:59
PROVIDERS: Emergency Medicine; Admitting Provider Internal Medicine; Emergency Provider Emergency Medicine; Family Provider Family Medicine; PCP Family Medicine; Visit Provider Internal Medicine
DX: G92 Toxic encephalopathy (principal); J18.9 Pneumonia, unspecified organism; T83.518A Infection and inflammatory reaction due to other urinary catheter, initial encounter; N39.0 Urinary tract infection, site not specified; G37.3 Acute transverse myelitis in demyelinating disease of central nervous system; T50.905A Adverse effect of unspecified drugs, medicaments and biological substances, initial encounter; G82.20 Paraplegia, unspecified; S81.811A Laceration without foreign body, right lower leg, initial encounter; W19.XXXA Unspecified fall, initial encounter; Y92.013 Bedroom of single-family (private) house as the place of occurrence of the external cause; G89.4 Chronic pain syndrome; E87.6 Hypokalemia; F32.9 Major depressive disorder, single episode, unspecified; D72.819 Decreased white blood cell count, unspecified; I10 Essential (primary) hypertension; Z96.89 Presence of other specified functional implants; Y95 Nosocomial condition; M51.37 Other intervertebral disc degeneration, lumbosacral region; G89.0 Central pain syndrome; N31.9 Neuromuscular dysfunction of bladder, unspecified; F41.9 Anxiety disorder, unspecified
CPT/HCPCS: 36415; 51702; 70450; 70551; 71045; 80048; 80307; 80320; 81001; 82140; 82962; 83605; 84484; 85025; 87040; 87086; 87088; 87186; 93005; 97162; 97166; 99285; J7030; A4216; G0480; J2405

== ENCOUNTER → 2019-05-02 11:55 | Outpatient (CLI) | payer MEDICARE, OTHER, SELFPAY ==
[2019-04-18 10:40] VITALS: BMI 27.1
[2019-05-02 14:45] LABS: Anion Gap 3 (5-15); BUN 8 mg/dL (7-18); BUN/Creat Ratio 14.3 RATIO (10-20); Calcium,Total 8.8 mg/dL (8.5-10.1); Chloride 106 mmol/L (98-107); Creatinine, Serum 0.56 mg/dL (0.55-1.02); EST Glomerular Filtration Rate 115 mL/min (>60); Est Glom Filt Rate - Afr Amer 139 mL/min (>60); Glucose 78 mg/dL (74-106); Magnesium 2.4 mg/dL (1.6-2.6); Potassium 3.8 mmol/L (3.5-5.1); Sodium Level 139 mmol/L (136-145)
[2019-05-02 14:47] LABS: Vitamin D,25 Hydroxy 26.9 ng/mL (29.95-100.01)
== END ==
PROVIDERS: Family Provider Family Medicine; PCP Family Medicine; Referring Provider Family Medicine; Visit Provider Family Medicine
DX: R00.0 Tachycardia, unspecified (principal); E55.9 Vitamin D deficiency, unspecified
CPT/HCPCS: 36415; 80048; 82306; 83735; 84443

== ENCOUNTER → 2019-05-06 15:36 | Outpatient (CLI) | payer MEDICARE, OTHER, SELFPAY ==
[2019-04-18 10:40] VITALS: BMI 27.1
== END ==
PROVIDERS: Family Provider Family Medicine; PCP Family Medicine; Referring Provider Family Medicine; Visit Provider Family Medicine
DX: N30.00 Acute cystitis without hematuria (principal)
CPT/HCPCS: 87086; 87088

== ENCOUNTER 2019-11-11 09:23 | Outpatient (RCR) | payer MEDICARE, OTHER, SELFPAY ==
[2019-04-18 10:40] VITALS: BMI 27.1
[2019-11-11 09:54] VITALS: BP 108/69; PULSE 83; RESP 16; TEMP 37.1; BMI 26.0
--- NOTE | 2019-11-11 13:32 | HP.PCM_ITS ---
(1) Pressure ulcer of right ischium Status: Chronic Current Visit: Yes Qualifiers: Pressure injury stage: stage 2 Qualified Code(s): L89.312 - Pressure ulcer of right buttock, stage 2 Code(s): L89.319 - Pressure ulcer of right buttock, unspecified stage (2) Neurogenic bladder Status: Chronic Current Visit: Yes Code(s): N31.9 - Neuromuscular dysfunction of bladder, unspecified (3) Paraplegia Status: Chronic Current Visit: Yes Code(s): G82.20 - Paraplegia, unspecified Comment: G82.20 due to transverse myelitis (4) Chronic back pain Status: Chronic Current Visit: Yes Qualifiers: Back pain location: low back pain Back pain laterality: unspecified Code(s): M54.9 - Dorsalgia, unspecified; G89.29 - Other chronic pain History of Present Illness Date of Service: 11/11/19 Chief Complaint: ulcer of right buttock History of Wound: Aleena is here for ulceration of her right buttock that has been present for approx. 2 months. She denies any trauma or injury to the area. She has been using a pink salve/ointment to the area and covering it with a bandage. She has noticed mild improvement. She is very conscious to avoid pressure to her buttocks and other areas since her previous ulcer and she reports sleeping on her side or her abdomen and alternating positions. She denies any fever or chills. She has chronic pain but does not have any sensation to the area where the ulcer/wound is present. She has paraplegia as a result of transverse myelitis occurring in 1999. She has been seen previously at the [facility] in May 2014 for a left ischial pressure ulcer which has remained healed s/p surgical debridement of the wound and flap closure. Past Medical History Past Medical History: Chronic Problems Pressure ulcer of right ischium (Chronic) Degeneration of intervertebral disc of lumbosacral region (Chronic) Central pain syndrome (Chronic) Chronic central neuropathic pain (Chronic) Chronic abdominal pain (Chronic) Neurogenic bladder (Chronic) Paraplegia (Chronic) G82.20 due to transverse myelitis Anxiety and depression (Chronic) 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 History of Insomnia (Chronic) Muscle spasm (Chronic) Neuropathic pain (Chronic) Urinary retention (Chronic) Chronic constipation (Chronic) Depression (Chronic) Anxiety (Chronic) Open wound of genital labia (Chronic) Constipation (Chronic) Anemia (Chronic) Pressure sore of left ischium, stage 4 (Chronic) L89.324 Pressure sore of left ischium, stage 3 (Chronic) Left perineal ischial pressure ulcer (Chronic) Self-catheterizes urinary bladder (Chronic) Chronic anemia (Chronic) Chronic back pain (Chronic) History fluid overload, systolic CHF (Chronic) Surgical History: - - Ileal conduit, umbilicus surgery, intrathecal pump, surgical debridement of L ischial pressure ulcer and flap closure Allergies/Adverse Reactions: Allergies No Known Allergies Allergy (Verified 12/02/18 21:22) Home Medications: Ambulatory Orders Medication Instructions Recorded Naproxen [Naprosyn] 375 mg PO BID 07/19/15 traZODone [Desyrel] 100 mg PO QHS #30 tablet 09/14/15 Senna/Docusate Sodium [Senokot-S] 2 tablet PO BID PRN 08/17/17 Trimethoprim [Trimpex] 100 mg PO DAILY 01/14/18 Polyethylene Glycol 3350 [Miralax] 17 gm PO DAILY PRN PRN 12/02/18 Gabapentin [Neurontin] 800 mg PO 4X/DAYCM #30 tab 04/21/19 Baclofen [Lioresal] 10 mg PO DAILY 11/11/19 Oxycodone HCl/Acetaminophen 1 tab PO 4X/DAY 11/11/19 [Percocet 10-325 mg Tablet] - Family History Maternal Heart Disease Paternal Cancer Lives: Alone Smoking Status: Never smoker Tobacco Use: Non-smoker Alcohol: None Drugs: None Review of Systems Constitutional: Denies: Chills, Fever, Weight Change Eyes: Denies: Pain, Vision Change HEENT: Denies: Difficulty Hearing, Difficulty Swallowing, Sinus Congestion Cardiovascular: Denies: Chest Pain, Palpitations Respiratory: Denies: Cough, Shortness of Breath Gastrointestinal: Denies: Diarrhea, Nausea, Vomiting Genitourinary: Reports: Retention Skin: Reports: Wounds Neurological: Reports: Numbness, Tingling, - - paraplegia Psychiatric: Reports: Anxiety, Depression Endocrine: Denies: Heat/ Cold Intolerance, Polydipsia, Polyuria Hematologic/ Lymphatic: Denies: Easy Bruising, Easy Bleeding - Physical Exam Vital Signs Temp Pulse Resp BP 98.8 F 83 16 108/69 11/11/19 09:54 11/11/19 09:54 11/11/19 09:54 11/11/19 09:54 General: Alert, Oriented x3, Cooperative, No apparent distress HEENT: Atraumatic, Normocephalic Oral: Moist Mucosa Abdomen: Soft, Non Tender Skin: Ulcer/ Wound Wound Measurements and Assessment WC - Nurse 1 - General Ulcer Measurement Start: 11/11/19 09:54 Freq: Status: Active Protocol: Activity Type Activity Date Activity User E-Sign Co-Sign Detail Recorded Client Recorded Date Recorded By Document 11/11/19 09:54 MW [id number] 11/11/19 10:07 MW 11/11/19 09:54 Wound Center Nurse 1 [Ulcer Assessment] #2 right buttock -Combined with other wound No -Current Size (cm) - Length 2.0 -Current Size (cm) - Width 1.0 -Current Size (cm) - Depth 0.1 -Total Square Cm 2.00 -Date of Last Picture (Recall this 11/11/19 field) -Photo Taken Yes -Epithelialization None Present -Tunneling No -Undermining/Tunneling No -Circular Undermining No -Exudate Amt Medium -Exudate Type Serosanguineous -Wound Margin Flat & Intact -Granulation Amt Large (67-100%) -Granulation Quality [place] -Slough/Fibrin Yes -Necrosis Amt Small (1-33%) -Necrotic Tissue Type Adherent Slough -Structure Exposed N/A -Texture (Leyla-wound Skin Appearance) Assessed, Scarring -Moisture (Leyla-wound Skin Appearance Assessed,Dry/ ) Scaly -Color (Leyla-wound Skin Appearance) No Abnormality, Assessed -Temperature (Leyla-wound Skin No Abnormality Appearance) (Pt Warm) -Tenderness on Palpation (Leyla-wound Yes Skin Appearance) -Ulcer Cleansing Rinsed/ Irrigated with Saline -Foul Odor after Cleansing No -Anesthetic Used 5% Lidocaine Gel [Edema Assessment] -Lower Limb Edema Present No WC - Nurse 2 - General Ulcer CM Notes Start: 11/11/19 09:54 Freq: Status: Active Protocol: Activity Type Activity Date Activity User E-Sign Co-Sign Detail Recorded Client Recorded Date Recorded By Document 11/11/19 10:51 DV [id number] 11/11/19 10:57 DV 11/11/19 10:51 Wound Center Nurse 2 [Procedure/Treatment] #2 right buttock -Time 10:53 -Correct Patient Yes -Correct Side, Site, Position Yes -Correct Procedure Yes -Procedure Performed Yes -Type of Procedure Debridement -Clinical Debridement Subcutaneous -Post Debridement Size (cm) - Length 2.1 -Post Debridement Size (cm) - Width 1.7 -Post Debridement Size (cm) - Depth 0.1 -Total Square Cm 3.57 -Wound/Ulcer Outcome Not Healed -Ulcer Cleansing Rinsed/ Irrigated with Saline -Foul Odor after Cleansing No -Bioengineered Tissue No -Bleeding Controlled with Pressure -Offloading No -Treatment Response Procedure Tolerated Well [See Physician Procedure note for Specifics] Pain Scale: 0-10 Numeric [Pain] -Is Patient Pain Free? Yes Psych/Mental Status: Normal Affect, Appropriate Debridement Note Post-Debridement Measurements/Treatment WC - Nurse 2 - General Ulcer CM Notes Start: 11/11/19 09:54 Freq: Status: Active Protocol: Activity Type Activity Date Activity User E-Sign Co-Sign Detail Recorded Client Recorded Date Recorded By Document 11/11/19 10:51 DV [id number] 11/11/19 10:57 DV 11/11/19 10:51 Wound Center Nurse 2 #2 right buttock -Time 10:53 -Correct Patient Yes -Correct Side, Site, Position Yes -Correct Procedure Yes -Procedure Performed Yes -Type of Procedure Debridement -Clinical Debridement Subcutaneous -Post Debridement Size (cm) - Length 2.1 -Post Debridement Size (cm) - Width 1.7 -Post Debridement Size (cm) - Depth 0.1 -Total Square Cm 3.57 -Wound/Ulcer Outcome Not Healed -Ulcer Cleansing Rinsed/ Irrigated with Saline -Foul Odor after Cleansing No -Bioengineered Tissue No -Bleeding Controlled with Pressure -Offloading No -Treatment Response Procedure Tolerated Well Pain Scale: 0-10 Numeric Is Patient Pain Free? Yes Wound debrided: right buttock Laterality: Right Wound Grade/Stage: Stage 2 Type of Debridement: Excisional debridement Anesthesia Used: 4% Lidocaine Solution, 5% Lidocaine Gel Depth: Down to and including healthy tissue, in the subcutaneous layer Percentage of wound debrided: 100 Instrument Used: 3mm curette Tissue Removed: yellow slough, devitalized tissue Severity: Fat Layer Exposed Amount of bleeding with debridement: Mild Bleeding Controlled with: Compression and gauze Patient tolerated procedure well Assessment/Plan Active Problems Pressure ulcer of right ischium (Chronic) Neurogenic bladder (Chronic) Paraplegia (Chronic) G82.20 due to transverse myelitis Chronic back pain (Chronic) Assessment: Stage 2 pressure ulcer right buttock. Paraplegia secondary to transverse myelitis Plan: Aleena's ulcer was evaluated and debrided today. Will have her use Amisha dressing and cover with gauze for moderate drainage with changes daily. She will wash with soap and water prior to dressing changes. She was advised to continue to increase her protein intake and offload the area as much as possible. F/U in 2 weeks.
== END 2019-12-02 23:59 ==
LOC: WC 09:23
PROVIDERS: PCP Family Medicine; Visit Provider Family Medicine
DX: L89.312 Pressure ulcer of right buttock, stage 2 (principal); L89.319 Pressure ulcer of right buttock, unspecified stage; G37.3 Acute transverse myelitis in demyelinating disease of central nervous system; N31.9 Neuromuscular dysfunction of bladder, unspecified; G82.20 Paraplegia, unspecified; M54.9 Dorsalgia, unspecified; G89.0 Central pain syndrome; F32.9 Major depressive disorder, single episode, unspecified; F41.9 Anxiety disorder, unspecified; G47.00 Insomnia, unspecified; Z79.1 Long term (current) use of non-steroidal anti-inflammatories (NSAID); Z79.899 Other long term (current) drug therapy; Z82.49 Family history of ischemic heart disease and other diseases of the circulatory system
CPT/HCPCS: 97597; 99213; G0463

== ENCOUNTER → 2020-01-20 11:26 | Outpatient (CLI) | payer MEDICARE, OTHER, SELFPAY | PROVIDERS: PCP Family Medicine; Referring Provider Family Medicine; Visit Provider Family Medicine | DX: R39.9 Unspecified symptoms and signs involving the genitourinary system (principal) | CPT/HCPCS: 87077; 87086; 87088; 87186 ==

== ENCOUNTER → 2020-02-20 13:30 | Outpatient (CLI) | payer MEDICARE, OTHER, SELFPAY ==
--- NOTE | 2020-02-20 13:32 | BI_ITS ---
MAMMOGRAPHY - BILATERAL SCREENING REASON FOR EXAM: Female, 69 years old. Routine annual screening examination. PERTINENT HISTORY: Non-contributory. TECHNIQUE: Digital bilateral breast jd (3D mammographic acquisition) in the CC and MLO projections. 2-D mediolateral oblique (MLO) and craniocaudad (CC) views of both breasts were obtained. CAD: Full Field Digital Mammography with Computer Added Detection was performed. COMPARISON: Comparison is made with prior examination dated 09/13/2018 and 09/24/2017. FINDINGS: Breast Composition: There are scattered areas of fibroglandular density. There are no dominant masses or suspicious calcifications. No other significant abnormalities are identified. There has been no significant change since the prior study. BI/SCREEN MAMM (CAD) W/JD BILAT IMPRESSION: Stable bilateral screening mammogram. Yearly follow-up mammogram recommended. (A) ASSESSMENT CATEGORY: BIRADS Category 1: Negative. A letter regarding these results will be sent to the patient by the facility within 30 days. Approximately 10% of breast cancers are not detected by mammography. A normal mammogram should not delay biopsy of a clinically suspicious abnormality. [id number] Electronically Signed: Forest Fajardo, at 14:32 EDT , Service support ,
== END ==
PROVIDERS: PCP Family Medicine; Referring Provider Family Medicine; Visit Provider Family Medicine
DX: Z12.31 Encounter for screening mammogram for malignant neoplasm of breast (principal)
CPT/HCPCS: 77063; 77067

== ENCOUNTER → 2020-03-22 13:45 | Outpatient (CLI) | payer MEDICARE, OTHER, SELFPAY ==
[2020-03-22 13:48] LABS: Mucous, Urine 0 SEEN /hpf (<or=2+); Squamous Epithelial Cells - UA 0 SEEN /hpf (5-10)
[2020-03-22 15:33] LABS: Color, Urine Yellow (Yellow); Glucose, Dipstick Normal (Normal); Ketone-Dipstick Negative (Negative); Leukocyte Esterase-Dipstick 100 /ul (Negative); Nitrite-Dipstick Positive (Negative); Occult Blood-Urine 25 /ul (Negative); Protein-Dipstick Negative (Negative); Specific Gravity, Urine 1.005 (1.002-1.030); Urine Bilirubin Dipstick Negative (Negative); Urine Clarity Sl. Cloudy (Clear); Urine Urobilinogen Normal (Normal)
[2020-03-22 15:55] LABS: Bacteria 2+ /hpf (None Seen); Red Blood Cells-Urine 0-5 SEEN /hpf (0-5); White Blood Cells 5-10 SEEN /hpf (0-5)
== END ==
PROVIDERS: PCP Family Medicine; Visit Provider Family Medicine
DX: N39.0 Urinary tract infection, site not specified (principal)
CPT/HCPCS: 81001; 87077; 87086; 87088; 87186

== ENCOUNTER → 2020-06-22 10:35 | Outpatient (CLI) | payer MEDICARE, OTHER, SELFPAY ==
[2020-06-22 12:53] LABS: ALB/GLOB Ratio 1.3 RATIO (0.9-2.4); AST(SGOT) 15 U/L (15-37); Alanine Aminotransfer ALT/SGPT 16 U/L (13-56); Albumin, Serum 3.9 g/dL (3.2-5.0); Alkaline Phosphatase 41 U/L (45-117); Anion Gap 6 (5-15); BUN 9 mg/dL (7-18); BUN/Creat Ratio 19.7 RATIO (10-20); Calcium,Total 8.3 mg/dL (8.5-10.1); Chloride 98 mmol/L (98-107); Cholesterol 214 mg/dL (200); Creatinine, Serum 0.46 mg/dL (0.55-1.02); EST Glomerular Filtration Rate 144 mL/min (>60); Est Glom Filt Rate - Afr Amer 174 mL/min (>60); Glucose 86 mg/dL (74-106); High Density Lipoprotein 63 mg/dL; Potassium 3.7 mmol/L (3.5-5.1); Protein, Total 6.9 g/dL (6.4-8.2); Sodium Level 133 mmol/L (136-145); Triglycerides 51 mg/dL; Very Low Density Lipoprotein 10 mg/dL (5-40)
== END ==
PROVIDERS: PCP Family Medicine; Referring Provider Family Medicine; Visit Provider Family Medicine
DX: I10 Essential (primary) hypertension (principal)
CPT/HCPCS: 36415; 80053; 80061

== ENCOUNTER 2020-07-05 06:08 | Outpatient (RCR) | payer MEDICARE, OTHER, SELFPAY ==
[2020-07-05] MEDS: COVID-19 VACC, MRNA(PFIZER)/PF 30 MCG/0.3 ML SYRINGE IM (15:15)
[2020-07-26] MEDS: COVID-19 VACC, MRNA(PFIZER)/PF 30 MCG/0.3 ML SYRINGE IM (14:48)
== END 2020-10-09 23:59 ==
LOC: IMMUN 06:08
PROVIDERS: PCP Family Medicine; Referring Provider Family Medicine; Visit Provider Family Medicine
DX: Z23 Encounter for immunization (principal)
CPT/HCPCS: 0001A; 0002A; 91300

== ENCOUNTER 2020-07-18 10:59 | Outpatient (RCR) | payer MEDICARE, OTHER, SELFPAY ==
--- NOTE | 2020-07-18 11:57 | HP.PTEVAL ---
Patient's Visit Information MAGALI ANDREA is a 70 year old F referred to Physical Therapy by Dr. Coleman Beck MD with a diagnosis of ACUTE TRANSVERSE MYELTIS IN DEMYELINATING CENTRAL NERVOUS SYSTEM ,PARAPLIA. Date of Evaluation: 07/18/20 Physical Therapist: Deep Gutierrez PT, Cert MDT, OCS - Visit Plan Frequency: 1visit Duration: i visit Plan: This patient will benifit from custom seat cushion due assymmtries with right leg shorter ,absent light touch legs buttuck scarum,with h/o of pressure ulcers as well as flaccid bilateral lower extremities. - Subjective This 70 y/o female presents to physical therapy with paraplegia and acute tranverse deymelinating disease of central nervous system.Patient has had this condition for 20 years . Patient is in constant pain waist to feet . Patient has absent senstaion waist buttuck to feet . Patient is w/c manually for moblity. I with with transfers . I with bed moblity . Pateint has transfer board for shower. Pateint is able to cook. Patient lives in one story home with ramp. Patient has standing frame.Pateint has no active movement legs.Patient has had h/o of skin breakdown due to abbsent sensation in sacrum/buttuck with flap 5 years ago.Patient I with dressing,laundry. Use pain pump in abdominal.Patient use cathedaer.Patient is able to wt shift and deload buttuck. SOCIAL: single ,lives with daughter - Pain Bilateral Lower Extremity Pain Intensity (Out of 10): 8 Pain Intensity Range: 10 - Objective POSTURE: rounded shoulders head foward,right leg shorter. MOBLITY: w/c manually. TRANSFERS : Mod I with sliding w/c. BED MOBLITY: Mod I. Sitting balanbe: good-. PROM: BLE WFL. NEURO: flaccid BLE ,absent light BLE hips/buttuck. MMT: BLE 0/5 BUE Grossly 4/5 except shoulders 4-/5. BED MOBILITY: supine -sit mod I - Goals Goal 1:: Recommend custom cuushion for w/c. Goal Time Frame: 1 visits - Rehabilitation Potential Physical Therapy Diagnosis: This patient will benifit from custom seat cushion due assymmtries with right leg shorter ,absent light touch legs buttuck scarum,with h/o of pressure ulcers as well as flaccid bilateral lower extremities. Rehabilitation Potential: Good - Anticipated Interventions Patient/Client Instruction: Educate patient on: Condition, Plan of Care, Risk Factors For the Purpose of:: Other Other: seat cushion Thank you for the opportunity to evaluate your patient. For Medicare and Medicare HMO plans, please review the plan of care and approve it. It will need to be FAXED BACK to us at [phone] for Medicare purposes. For Medicare only, by signing this I certify the plan of care. Please let me know if there are questions or concerns regarding this plan of care. Physician Signature: Date:
== END 2020-07-18 19:00 | disposition home or self-care (01) ==
LOC: PT 10:59
PROVIDERS: PCP Family Medicine; Referring Provider Family Medicine; Visit Provider Family Medicine
DX: G37.3 Acute transverse myelitis in demyelinating disease of central nervous system (principal); G82.20 Paraplegia, unspecified
CPT/HCPCS: 97163

== ENCOUNTER 2020-09-25 10:15 | Outpatient (RCR) | payer MEDICARE, OTHER, SELFPAY ==
[2020-09-04 10:18] VITALS: BP 109/64; PULSE 66; RESP 16; TEMP 36; BMI 21.2
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
[2020-09-11 10:08] VITALS: BP 84/69; PULSE 85; RESP 18; TEMP 36; BMI 21.2
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
[2020-09-18 10:00] VITALS: BP 117/69; PULSE 77; TEMP 36.7; BMI 21.2
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
[2020-09-25 10:29] VITALS: TEMP 36.8; BMI 21.2
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
== END 2020-10-01 23:59 ==
LOC: WC 10:15
PROVIDERS: PCP Family Medicine; Visit Provider Surgery
DX: G37.3 Acute transverse myelitis in demyelinating disease of central nervous system (principal); T21.35XA Burn of third degree of buttock, initial encounter; T79.8XXA Other early complications of trauma, initial encounter; X08.8XXD Exposure to other specified smoke, fire and flames, subsequent encounter; G82.20 Paraplegia, unspecified; I87.2 Venous insufficiency (chronic) (peripheral); Z79.1 Long term (current) use of non-steroidal anti-inflammatories (NSAID); Z79.899 Other long term (current) drug therapy; R33.9 Retention of urine, unspecified; N31.9 Neuromuscular dysfunction of bladder, unspecified; F41.9 Anxiety disorder, unspecified; F32.9 Major depressive disorder, single episode, unspecified; G89.0 Central pain syndrome; K59.09 Other constipation
CPT/HCPCS: 11042; 97607; 99213; G0463

== ENCOUNTER 2020-10-30 10:30 | Outpatient (RCR) | payer MEDICARE, OTHER, SELFPAY ==
[2020-10-02 00:38] VITALS: BP 117/69; PULSE 77; RESP 18; TEMP 36.8
[2020-10-02 10:10] VITALS: BP 131/62; PULSE 62; TEMP 36.6; BMI 21.2
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
[2020-10-09 11:53] VITALS: BMI 21.2
[2020-10-16 10:16] VITALS: BP 134/83; PULSE 77; TEMP 36.1; BMI 21.2
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
[2020-10-26 11:50] VITALS: BP 135/85; PULSE 77; RESP 18; TEMP 36.4; BMI 21.2
[2020-10-30 10:36] VITALS: BP 130/55; PULSE 62; TEMP 36.8; BMI 21.2
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
== END 2020-10-31 23:59 ==
LOC: WC 10:30
PROVIDERS: PCP Family Medicine; Visit Provider Surgery
DX: T21.35XD Burn of third degree of buttock, subsequent encounter (principal); T30.0 Burn of unspecified body region, unspecified degree; I87.2 Venous insufficiency (chronic) (peripheral); N31.9 Neuromuscular dysfunction of bladder, unspecified; G82.20 Paraplegia, unspecified; G47.00 Insomnia, unspecified; K59.09 Other constipation; F32.9 Major depressive disorder, single episode, unspecified; F41.9 Anxiety disorder, unspecified; G37.3 Acute transverse myelitis in demyelinating disease of central nervous system; L89.323 Pressure ulcer of left buttock, stage 3; M51.37 Other intervertebral disc degeneration, lumbosacral region; Z78.9 Other specified health status; D64.9 Anemia, unspecified; M54.9 Dorsalgia, unspecified; G89.29 Other chronic pain; Z79.1 Long term (current) use of non-steroidal anti-inflammatories (NSAID)
CPT/HCPCS: 11042; 97607

== ENCOUNTER 2020-11-20 10:15 | Outpatient (RCR) | payer MEDICARE, OTHER, SELFPAY ==
[2020-11-01 00:27] VITALS: BP 130/55; PULSE 62; RESP 18; TEMP 36.8
[2020-11-06 10:39] VITALS: BP 105/58; PULSE 68; RESP 16; TEMP 36.1; BMI 21.2
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
[2020-11-13 10:36] VITALS: BP 136/67; PULSE 81; RESP 18; TEMP 37; BMI 21.2
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
[2020-11-20 10:32] VITALS: RESP 18; TEMP 36.4; BMI 21.2
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
== END 2020-12-01 23:59 ==
LOC: WC 10:15
PROVIDERS: PCP Family Medicine; Visit Provider Surgery
DX: T21.35XA Burn of third degree of buttock, initial encounter (principal); G82.20 Paraplegia, unspecified; G37.3 Acute transverse myelitis in demyelinating disease of central nervous system; L97.521 Non-pressure chronic ulcer of other part of left foot limited to breakdown of skin; I87.2 Venous insufficiency (chronic) (peripheral); N31.9 Neuromuscular dysfunction of bladder, unspecified
CPT/HCPCS: 11042

== ENCOUNTER 2021-01-01 10:30 | Outpatient (RCR) | payer MEDICARE, OTHER, SELFPAY ==
[2020-12-02 00:29] VITALS: BP 136/67; PULSE 81; RESP 18; TEMP 36.4
[2020-12-04 10:54] VITALS: BP 95/69; PULSE 68; TEMP 36.1; BMI 21.2
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
[2020-12-11 10:37] VITALS: BP 133/55; PULSE 70; TEMP 36.1; BMI 21.2
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
[2020-12-18 10:47] VITALS: BP 116/59; PULSE 76; RESP 16; TEMP 36.6; BMI 21.2
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
[2020-12-25 10:50] VITALS: BP 94/68; PULSE 64; TEMP 36.3; BMI 21.2
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
[2021-01-01 11:31] VITALS: BP 125/49; PULSE 66; TEMP 36.2; BMI 21.2
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
== END 2021-01-01 23:59 ==
LOC: WC 10:30
PROVIDERS: PCP Family Medicine; Visit Provider Surgery
DX: L89.893 Pressure ulcer of other site, stage 3 (principal); L97.521 Non-pressure chronic ulcer of other part of left foot limited to breakdown of skin; N31.9 Neuromuscular dysfunction of bladder, unspecified; G82.20 Paraplegia, unspecified; R33.9 Retention of urine, unspecified; K59.00 Constipation, unspecified; D64.9 Anemia, unspecified; Z78.9 Other specified health status; I87.2 Venous insufficiency (chronic) (peripheral); F41.9 Anxiety disorder, unspecified; F32.9 Major depressive disorder, single episode, unspecified; Z79.1 Long term (current) use of non-steroidal anti-inflammatories (NSAID)
CPT/HCPCS: 11042; 87070; 87075; 87077; 87186; 87205

== ENCOUNTER 2021-01-21 11:37 | Day surgery (SDC) | payer MEDICARE, OTHER, SELFPAY ==
[2021-01-21] VITALS (9 sets, daily range): BP systolic 105–136; BP diastolic 68–84; PULSE 51–64; RESP 16; TEMP 36.4–36.6; O2SAT 96–100; BMI 19.2
[2021-01-21] MEDS: Lactated Ringers 1,000 ML 100 ML IV (12:49)
[2021-01-21] MEDS: Cefazolin 2 GM in 0.9% Normal Saline 100 ML IV (12:58)
[2021-01-21] MEDS: Bacitracin 500 UNITS/GM PACKET (13:58)
[2021-01-21] MEDS: Bupivacaine 0.25% 30 ML Vial (13:58)
[2021-01-21] MEDS: Lidocaine 2% (20 ml mdv) 20 ML Vial (13:58)
--- NOTE | 2021-01-21 15:13 | OP.PCM_ITS ---
Report of Operation Date of Procedure: 01/21/21 Description of Surgical Findings:: Description of Surgical Findings:: Pre- Operative Diagnosis: End of life of IT pump ,chronic pain, opioid dependent, lumbosacral radiculopathy, lumbosacral degenerative disc disease, lumbosacral spinal stenosis Post-Operative Diagnosis: Chronic pain, opioid dependent, Lumbosacral radiculopathy, lumbosacral degenerative disc disease, lumbosacral spinal stenosis PROCEDURES: 1. Implant of an intrathecal targeted drug delivery pump at the right lower quadrant of the abdomen. 2-reprogramming of intrathecal targeted delivery pump ANESTHESIA: MAC COMPLICATIONS: None BLOOD LOSS: Minimal Implanted device: SynchroMed II pump, serial number [id number]. PROCEDURE IN DETAIL: History and physical today was reviewed. Risks and benefits of procedure explained. The patient understood, agreed to procedure, informed consent was obtained. IV inserted per routine protocol. The patient was taken to the operating room, placed in the supine position, pressure points were checked per anesthesia and myself no pressure was indicated . A 2 g of Ancef IV piggyback was infused per anesthesia prior to incision. the lower abdominal wall was prepped and draped in a sterile fashion using iodine x3 followed by Ioban once the area was draped in a sterile fashion and the patient in a good positioning and satisfactory positioning the previous incision was then anesthetized with a total of 10 cc of 0.25% Marcaine preservative-free and 2% lidocaine preservative-free using an 11 blade w the incision was then taken down to the fascia the previous pocket was then resected avoiding the intrathecal catheter hemostasis was maintained with pressure as well as Bovie the area was then dissected in a blunt fashion and taken down to a thickness of approximately 4 cm once fascia as well as the muscle layer underneath was palpated hemostasis was maintained during the entire dissection, the previous catheter was then visualized and a direct attention was paid to the catheter not to sever the catheter while we incised the incision the incision was then extended more medial as well as lateral the previous intrathecal pump sutures were then removed carefully the pump was then removed outside of the pocket and the secondary attachment was then removed as well as a sutured the catheter was then left to gravity with a positive CSF flow the pump was then taken to the side and using a hypodermic 20-gauge needle of the intrafecal content of the catheter was then removed approximately 5 cc of her previous medication was then removed the medication was then reinserted into the new SynchroMed 2 pump the pump was then reattached to the secondary port the secondary port previously was aspirated with a total of 0.12 cc aspirated from the site port a 2-0 silk sutures were then used to tie the side ports to the intrathecal pump once confirmation of the security of the secondary port as well as the pump the catheter then was placed in the pocket and the 4 ports were anchored down to the fascia with a 2-0 silk the incision was then the skin and subcutaneous tissue were then sutured in a running 3-0 Vicryl followed by a 4-0 Vicryl hemostasis was maintained during the entire procedure, the procedure was completed without any apparent difficulty or any complication the patient was then awakened by anesthesia and transferred to the PACU in a stable condition the reprogramming of the pump took place with a new reservoir volume of 5 cc. ESTIMATED BLOOD LOSS: Minimal less than 25 mL ASSESSMENT AND PLAN: This is a 70-year-old female with end of life of intrathecal pump, chronic pain, opioid dependency, lumbosacral radiculopathy lumbosacral degenerative disc disease lumbosacral spinal stenosis status post 1. Implant of an intrathecal targeted drug delivery pump at the right lower quadrant of the abdomen, programming of intrathecal pump .patient will continue her current medications a prescription was provided to the patient Keflex 500 mg 1 p.o. every 8 hours for 7 days postop instruction were given in writing to the patient, patient will follow approximately 1 week for reevaluation
== END 2021-01-21 16:15 | disposition home or self-care (01) ==
LOC: SDC 11:40 → AC 11:53
PROVIDERS: PCP Family Medicine; Referring Provider Anesthesiology Pain Medicine; Visit Provider Anesthesiology Pain Medicine
PROC: (CPT 62350; principal; 2021-01-21 12:55)
DX: M51.17 Intervertebral disc disorders with radiculopathy, lumbosacral region (principal); M48.07 Spinal stenosis, lumbosacral region; G89.0 Central pain syndrome; G82.20 Paraplegia, unspecified; G37.3 Acute transverse myelitis in demyelinating disease of central nervous system; M79.10 Myalgia, unspecified site; F11.20 Opioid dependence, uncomplicated; Z99.3 Dependence on wheelchair
CPT/HCPCS: 62350; 62362; J7120; J2405

== ENCOUNTER 2021-01-28 10:30 | Outpatient (RCR) | payer MEDICARE, OTHER, SELFPAY ==
[2021-01-02 00:33] VITALS: BP 125/49; PULSE 66; RESP 16; TEMP 36.2; BMI 21.2
[2021-01-15 10:27] VITALS: BP 101/48; PULSE 65; TEMP 36.1; BMI 21.2
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
[2021-01-22 10:45] VITALS: BP 95/61; PULSE 64; TEMP 36.1; BMI 21.2
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
[2021-01-28 10:30] VITALS: BP 115/59; PULSE 71; RESP 16; TEMP 36.4; BMI 21.2
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
== END 2021-01-31 23:59 ==
LOC: WC 10:30
PROVIDERS: PCP Family Medicine; Visit Provider Surgery
DX: L89.893 Pressure ulcer of other site, stage 3 (principal); L97.521 Non-pressure chronic ulcer of other part of left foot limited to breakdown of skin; G82.20 Paraplegia, unspecified; N31.9 Neuromuscular dysfunction of bladder, unspecified; K59.00 Constipation, unspecified; F32.9 Major depressive disorder, single episode, unspecified; K59.09 Other constipation; G89.0 Central pain syndrome; R33.9 Retention of urine, unspecified; D64.9 Anemia, unspecified; F41.9 Anxiety disorder, unspecified; M79.2 Neuralgia and neuritis, unspecified; I87.2 Venous insufficiency (chronic) (peripheral); Z79.1 Long term (current) use of non-steroidal anti-inflammatories (NSAID); G37.3 Acute transverse myelitis in demyelinating disease of central nervous system
CPT/HCPCS: 11042

== ENCOUNTER 2021-02-26 10:45 | Outpatient (RCR) | payer MEDICARE, OTHER, SELFPAY ==
[2021-02-01 00:26] VITALS: BP 115/59; PULSE 71; RESP 16; TEMP 36.4; BMI 21.2
[2021-02-05 11:10] VITALS: BP 118/58; PULSE 69; RESP 16; TEMP 35.9; BMI 21.2
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
[2021-02-12 11:01] VITALS: BP 118/61; PULSE 71; TEMP 36.3; BMI 21.2
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
[2021-02-19 11:12] VITALS: BP 122/73; PULSE 66; TEMP 36.4; BMI 21.2
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
[2021-02-26 10:48] VITALS: BP 118/72; PULSE 70; RESP 16; TEMP 36.2; BMI 21.2
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
== END 2021-03-03 23:59 ==
LOC: WC 10:45
PROVIDERS: PCP Family Medicine; Visit Provider Surgery
DX: L89.893 Pressure ulcer of other site, stage 3 (principal); L97.521 Non-pressure chronic ulcer of other part of left foot limited to breakdown of skin; G82.20 Paraplegia, unspecified; N31.9 Neuromuscular dysfunction of bladder, unspecified; F41.9 Anxiety disorder, unspecified; F32.9 Major depressive disorder, single episode, unspecified; K59.09 Other constipation; R33.9 Retention of urine, unspecified; M79.2 Neuralgia and neuritis, unspecified; G89.29 Other chronic pain; I87.2 Venous insufficiency (chronic) (peripheral); Z79.1 Long term (current) use of non-steroidal anti-inflammatories (NSAID)
CPT/HCPCS: 11042; 15275; Q4186

== ENCOUNTER 2021-04-02 11:00 | Outpatient (RCR) | payer MEDICARE, OTHER, SELFPAY ==
[2021-03-04 00:22] VITALS: BP 118/72; PULSE 70; RESP 16; TEMP 36.2; BMI 21.2
[2021-03-05 11:25] VITALS: BP 124/55; PULSE 76; RESP 20; TEMP 36.4; BMI 21.2
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
[2021-03-12 11:06] VITALS: BP 109/68; PULSE 75; RESP 18; TEMP 36.8; BMI 21.2
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
[2021-03-19 11:31] VITALS: BP 120/68; PULSE 75; RESP 20; TEMP 36.8; BMI 21.2
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
[2021-03-26 10:57] VITALS: BP 109/65; PULSE 85; RESP 20; TEMP 36.1; BMI 21.2
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
[2021-04-02 10:46] VITALS: BP 119/64; PULSE 78; TEMP 36.3; BMI 21.2
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
== END 2021-04-02 23:59 ==
LOC: WC 11:00
PROVIDERS: PCP Family Medicine; Visit Provider Surgery
DX: L89.893 Pressure ulcer of other site, stage 3 (principal); L89.153 Pressure ulcer of sacral region, stage 3; L97.521 Non-pressure chronic ulcer of other part of left foot limited to breakdown of skin; G82.20 Paraplegia, unspecified; N31.9 Neuromuscular dysfunction of bladder, unspecified; K59.00 Constipation, unspecified; R33.9 Retention of urine, unspecified; D64.9 Anemia, unspecified; F32.A Depression, unspecified; F41.9 Anxiety disorder, unspecified; G89.0 Central pain syndrome; I87.2 Venous insufficiency (chronic) (peripheral); Z79.1 Long term (current) use of non-steroidal anti-inflammatories (NSAID)
CPT/HCPCS: 11042; 15275; Q4186

== ENCOUNTER 2021-04-30 11:00 | Outpatient (RCR) | payer MEDICARE, OTHER, SELFPAY ==
[2021-04-03 00:27] VITALS: BP 119/64; PULSE 78; RESP 20; TEMP 36.3; BMI 21.2
[2021-04-16 11:15] VITALS: BP 116/87; PULSE 80; RESP 18; TEMP 36.4; BMI 21.2
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
[2021-04-23 11:01] VITALS: BP 114/67; BMI 21.2
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
[2021-04-30 11:00] VITALS: BP 134/40; PULSE 64; RESP 16; TEMP 36.3; BMI 21.2
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
== END 2021-05-03 23:59 ==
LOC: WC 11:00
PROVIDERS: PCP Family Medicine; Visit Provider Surgery
DX: L89.893 Pressure ulcer of other site, stage 3 (principal); L89.153 Pressure ulcer of sacral region, stage 3; L97.521 Non-pressure chronic ulcer of other part of left foot limited to breakdown of skin; N31.9 Neuromuscular dysfunction of bladder, unspecified; G82.20 Paraplegia, unspecified; I87.2 Venous insufficiency (chronic) (peripheral); M54.9 Dorsalgia, unspecified; D64.9 Anemia, unspecified; Z78.9 Other specified health status; K59.09 Other constipation; R33.9 Retention of urine, unspecified; M79.2 Neuralgia and neuritis, unspecified; F32.A Depression, unspecified; F41.9 Anxiety disorder, unspecified; G89.0 Central pain syndrome; Z79.1 Long term (current) use of non-steroidal anti-inflammatories (NSAID); Z79.899 Other long term (current) drug therapy
CPT/HCPCS: 11042; 15275; 87070; 87075; 87077; 87186; 87205; Q4186

== ENCOUNTER 2021-05-14 11:39 | Outpatient (CLI) | payer MEDICARE, OTHER, SELFPAY ==
--- NOTE | 2021-05-14 11:43 | RAD_ITS ---
STUDY: X-RAY - PELVIS AND BILATERAL HIPS REASON FOR EXAM: Female, 71 years old. Hip deformity. TECHNIQUE: AP view of the pelvis.? 2 views of the right hip, and 2 views of the left hip were obtained. COMPARISON: CT abdomen and pelvis August 17, 2017. FINDINGS: There is a non-specific bowel gas pattern. Stool is present throughout the colon suggestive of constipation. Medical generator device overlies the right lower quadrant. Normal visualized soft tissue structures. Normal bilateral iliac wings, sacroiliac joints and visualized sacrum. Normal bilateral superior and inferior pubic rami. Normal pubic symphysis. Normal bilateral ischial tuberosities. Bones are osteopenic. Transverse displaced fracture proximal right femoral diaphysis with apex superior angulation present on the prior CT. Severe degenerative changes left hip with joint space narrowing and osteophytosis. No fracture identified.. RAD/Hips B/L min 2 views w/ Pelvis IMPRESSION: Old displaced fracture right proximal femoral diaphysis. Severe degenerative changes of the left hip. No fracture identified. Stool is present throughout the colon suggestive of constipation. Electronically Signed: Héctor Piedra MD at 1:29 EST , Service support ,
== END 2021-05-14 23:59 | disposition short-term general hospital (02) ==
LOC: MTRAD 11:41
PROVIDERS: PCP Family Medicine; Referring Provider Family Medicine; Visit Provider Family Medicine
DX: M21.951 Unspecified acquired deformity of right thigh (principal)
CPT/HCPCS: 73521

== ENCOUNTER 2021-05-15 15:40 | Outpatient (CLI) | payer MEDICARE, OTHER, SELFPAY ==
--- NOTE | 2021-05-15 15:45 | MRI_ITS ---
STUDY: MRI LEFT FOREFOOT WITH AND WITHOUT CONTRAST REASON FOR EXAM: Nonhealing wound at the dorsal aspect of the interphalangeal joint of the great toe since November, evaluate for osteomyelitis. TECHNIQUE: Standardized fat and water weighted pulse sequences were obtained in all 3 orthogonal planes, post contrast administration. IV 9ml Dotarem was administered for the contrast portion of the examination. COMPARISON: None. FINDINGS: There is mild arthrosis of the metatarsophalangeal joint of the hallux with mild chondral thinning (T2 long axis images 14, 15) and a small focus of subchondral bone edema of the medial aspect of the first metatarsal head (inversion recovery sagittal image 22) with associated contrast enhancement (postcontrast T1 short axis image 16). Normal tibial and fibular sesamoids, with normal sesamoids-first metatarsal articulations. Normal interphalangeal joint of the hallux. Normal proximal and distal phalanges of the great toe without bone edema to indicate osteomyelitis. Normal medial and lateral heads of the flexor hallucis brevis tendons. Normal flexor and extensor hallucis longus tendons. Normal second through fifth metatarsophalangeal (MTP) joints. Normal interphalangeal joints of the second through fifth toes. Normal proximal, middle and distal phalanges of the second through fifth toes. Normal flexor and extensor tendons of the second through fifth toes. Normal first through fourth intermetatarsal spaces. There is no metatarsal stress fracture. There is edema in the intrinsic muscles of the forefoot (inversion recovery sagittal images 9-18) without contrast enhancement of the intrinsic muscles. There is mild edema in the dorsal subcutis adipose space. There is no focal fluid collection to indicate soft tissue abscess. MRI/Lower Ext No Joint W/WO Cont IMPRESSION: Mild arthrosis of the first metatarsophalangeal joint with a small focus of subchondral bone edema of the medial aspect of the first metatarsal head. Edema in the intrinsic muscles of the forefoot, possibly representing denervation injury. No demonstrated bone edema of the first proximal or distal phalanges deep to the soft tissue ulcer to indicate osteomyelitis. Electronically Signed: Armando Castillo MD at 8:25 EST Tel , Service support ,
== END 2021-05-15 23:59 | disposition short-term general hospital (02) ==
LOC: MRI 15:42
PROVIDERS: PCP Family Medicine; Visit Provider Surgery
DX: M86.9 Osteomyelitis, unspecified (principal); S91.102A Unspecified open wound of left great toe without damage to nail, initial encounter
CPT/HCPCS: 73720; A9575

== ENCOUNTER 2021-05-21 09:30 | Outpatient (CLI) | payer MEDICARE, OTHER, SELFPAY ==
--- NOTE | 2021-05-21 09:37 | BI_ITS ---
MAMMOGRAPHY - BILATERAL SCREENING REASON FOR EXAM: Female, 71 years old. Routine annual screening examination. PERTINENT HISTORY: Non-contributory. TECHNIQUE: Digital bilateral breast jd (3D mammographic acquisition) in the CC and MLO projections. 2-D mediolateral oblique (MLO) and craniocaudad (CC) views of both breasts were obtained. CAD: Full Field Digital Mammography with Computer Added Detection was performed. COMPARISON: Comparison is made with prior study dated 02/20/2020. FINDINGS: Breast Composition: There are scattered areas of fibroglandular density. There are no dominant masses or suspicious calcifications. No other significant abnormalities are identified. There has been no significant change since the prior study. BI/SCRN MAMM (CAD)W/JD BILAT IMPRESSION: Stable bilateral screening mammogram. Yearly follow-up mammogram recommended. (A) ASSESSMENT CATEGORY: BIRADS Category 1: Negative. A letter regarding these results will be sent to the patient by the facility within 30 days. Approximately 10% of breast cancers are not detected by mammography. A normal mammogram should not delay biopsy of a clinically suspicious abnormality. [id number] Electronically Signed: Forest Fajardo MD at 11:00 EST , Service support ,
== END 2021-05-21 23:59 | disposition short-term general hospital (02) ==
PROVIDERS: PCP Family Medicine; Referring Provider Family Medicine; Visit Provider Family Medicine
DX: Z12.31 Encounter for screening mammogram for malignant neoplasm of breast (principal); L89.893 Pressure ulcer of other site, stage 3; L89.153 Pressure ulcer of sacral region, stage 3; G82.20 Paraplegia, unspecified; L97.521 Non-pressure chronic ulcer of other part of left foot limited to breakdown of skin; N31.9 Neuromuscular dysfunction of bladder, unspecified; Z78.9 Other specified health status; K59.00 Constipation, unspecified; R33.9 Retention of urine, unspecified; G89.0 Central pain syndrome; M79.2 Neuralgia and neuritis, unspecified
CPT/HCPCS: 11042; 77063; 77067

== ENCOUNTER 2021-05-28 11:00 | Outpatient (RCR) | payer MEDICARE, OTHER, SELFPAY ==
[2021-05-04 00:26] VITALS: BP 134/40; PULSE 64; RESP 16; TEMP 36.3; BMI 21.2
[2021-05-07 10:58] VITALS: BP 129/49; PULSE 68; RESP 16; TEMP 36.6; BMI 21.2
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
[2021-05-14 09:52] VITALS: BP 102/56; PULSE 73; RESP 18; TEMP 36.6; BMI 21.2
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
[2021-05-15 15:55] LABS: CREATININE FINGERSTICK < 0.6 mg/dL (0.55-1.02); EGFR FINGERSTICK > 60.0000 mL/min (>60)
[2021-05-21 10:34] VITALS: BP 107/55; PULSE 76; RESP 16; TEMP 36.6; BMI 21.2
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
[2021-05-28 11:08] VITALS: BP 90/54; PULSE 64; RESP 16; TEMP 36.4; BMI 21.2
--- NOTE | 2021-05-28 12:28 | HP.PCM_ITS ---
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 The patient is to return in 1 week for reassessment. Preauthorization for the use of an allograft has been denied with respect to the patient's left foot ulceration, due to the relatively small size of the ulceration. Total time: 29 minutes
== END 2021-06-03 23:59 ==
LOC: WC 11:00
PROVIDERS: PCP Family Medicine; Visit Provider Surgery
DX: L89.893 Pressure ulcer of other site, stage 3 (principal); L89.153 Pressure ulcer of sacral region, stage 3; G82.20 Paraplegia, unspecified; L97.522 Non-pressure chronic ulcer of other part of left foot with fat layer exposed; L97.521 Non-pressure chronic ulcer of other part of left foot limited to breakdown of skin; R33.9 Retention of urine, unspecified; K59.09 Other constipation; N31.9 Neuromuscular dysfunction of bladder, unspecified; G62.9 Polyneuropathy, unspecified; G89.29 Other chronic pain; M62.838 Other muscle spasm; F32.A Depression, unspecified; Z56.0 Unemployment, unspecified; Z80.0 Family history of malignant neoplasm of digestive organs; F41.9 Anxiety disorder, unspecified; R10.9 Unspecified abdominal pain; M21.951 Unspecified acquired deformity of right thigh
CPT/HCPCS: 11042; 73521

== ENCOUNTER 2021-06-24 10:57 | Day surgery (SDC) | payer MEDICARE, OTHER, SELFPAY ==
--- NOTE | 2021-06-21 13:14 | PCM.HP.BLA ---
History and Physical Date of Admission: 06/24/21 Chief Complaint: Follow up/medication refill History of Present Illness: This is a 70 Y/O Female who was evaluated by our office today as a follow up. Pain: Lower back, baljit hips and baljit legs Quality: constant,varies in intensity Region: starts in lower back and radiates into baljit hips on back side and both legs ache front and back Severity: dull-intense aching Timing: Since July 2000 Aggravated by: sitting Relieved by: nothing, medications Pain score (out of 10): 6/10 Other info: Patient is here for a follow up. Reports pain is in low back, bilateral hips and bilateral legs to tips of toe. States the pain is constant and varies in intensity.States she has been having pain in both of her knees as well. States she is going to the wound center once a week for an open ulcer on her tailbone and left toe. States she saw Dr Frances at [facility] in [place] twice and the Dr was supposed to get in touch with you to discuss SCS and medical marijuana. Needs refill on her Oxycodone, she continues to do ok with her medications without side effects, she denies any other associated symptoms, she stated she is not sure if her trial in the past was long enough, she would dike to try it again to see if it does help. Review of Systems: Patient denies any fever, chills, headache,vision or hearing problems.Reports weight loss. No cp, sob, juarez, pnd, orthopnea, or peripheral edema.They note no lumps or swollen glands, no new rashes, changing moles, or change in bowel or bladder function. Mood has been stable. Past Medical History: quadriplegia h/o Transverse Myelitis h/o depression h/o chronic constipation h/o anxiety h/o chronic UTI h/o osteoporosis s/p pain pump placement /replaced x3,most recent 01/21/21 s/p tonsillectomy Family History: Mother: Father: colon cancer Siblings: ======== Structured Family History ======== Father: Cancer of colon Brother: Cancer of colon Sister: Cancer of colon Mother: cerebral aneurysm Father: Cancer of colon Brother: Cancer of colon Sister: Cancer of colon Mother: cerebral aneurysm Social History: [Tobacco: Never smoker Pipe Smoker: No Cigar Smoker: No Chewing Tobacco User: No Electronic Cigarette User: No] Patient denies any tobacco use, recreational drug use and alcohol consumption. Living situation: Occupation: unemployed-disabled Tobacco: denies EtOH: denies Rec. drugs: denies Allergies: No Known Allergies Medications: 1) amitriptyline 25 mg oral tablet, Take 1 tablet by mouth every evening 2) bupivacaine 30 mg/ml, hydromorphone 32 mg/ml/baclofen, 2000mcg/ml, 20 ml IT pump 3) cephalexin 250 mg/5 mL oral liquid, Take 1 tablet by mouth once daily 4) cloNIDine 0.2 mg oral tablet, 1 PO QHS 5) Cymbalta 60 mg oral delayed release capsule, 1 PO daily 6) docusate sodium 100 mg oral capsule, 1-2 PO PRN consitpation. 7) gabapentin 800 mg oral tablet, One tablet four times a day 8) MiraLax oral powder for reconstitution, use as directed 9) naproxen 375 mg oral tablet, 2 tablets BID 10) Percocet 10 mg-325 mg oral tablet, 1 PO QID PRN pain. 11) PF NS at 1ml per day, IT pump as directed 12) traZODone 100 mg oral tablet, Take 1 tablet by mouth every evening Physical Examination: Ht/Ln: 63 in BP: 108/61 Pulse: 84 RR: 16 Temp: 97.3F Pain: 6 Well nourished and well developed in no acute distress. Affect is normal and appropriate. Mucosa pink and moist. Chest is unlabored breathing. Neck is supple without significant lymphadenopathy or thyromegaly. Abdomen soft & but tender. No HSM or masses appreciated. Extremities show no cyanosis, clubbing, positive pedal edema. Wheelchair bound. Lumbar paraspinal muscle tenderness. Lumbar ROM is limited due to pain. Positive multiple surgical scar that is well healed. flacid paralysis on the lower extremities. Right lower abdominal quadrant incision is well healed. Positive decub ulcer tailbone area. Motor and sensory exam is unchanged. 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 (Transmitted by Jennifer Corona MD) Continue with her current medications, Follow up with her neurologist. All of her questions were answered today and she appears to understand. Follow up with her PCP. UDS was performed today and will be reviewed on the next encounter to monitor pt medications compliance. Follow up with the wound clinic for her decub. ulcer. We will consider a SCS trial in the future. PEG was reviewed today. SOAPP score is 0 Life style modifications were also discussed today and the pt appears to understand. OARRS was reviewed today and compliant. There are no signs of diversion or addiction with the pt, there is also no signs of abuse or misuse, continues to do well with their medications without any side effects, we will continue monitoring the pt closely. Risks and benefits of the above meds were discussed with the pt and they appear to understand. The common side effects of the medications were discussed and all of their questions and concerns were answered and they appear to understand Discussed natural and expected course of this diagnosis and need to alert me if symptoms do not follow expected course, or if any worse. Pt is to continue with her HEP. Pt has tried multiple modalities with no success, we will schedule the pt for SCS trial X2 lead under fluoro with programming once her decub. is better, the pt did have a psych eval in the past and nothing have changed since. We have discussed the risks, benefits as well as alternatives of the procedure and the patient appears to understand and would like to proceed with the above plan. The above plan was discussed today with the pt in details and they appear to understand and agrees to continue with the plan.
[2021-06-24 11:17] VITALS: BP 120/54; PULSE 62; RESP 16; TEMP 37.2; O2SAT 100; BMI 20.2
[2021-06-24] MEDS: Lactated Ringers 1,000 ML 15 ML IV (11:21)
[2021-06-24] MEDS: Bacitracin 500 UNITS/GM PACKET (12:13)
[2021-06-24] MEDS: Cefazolin 2 GM in 0.9% Normal Saline 100 ML IV (12:22)
--- NOTE | 2021-06-24 12:22 | RAD_ITS ---
STUDY: INTRAOPERATIVE FLUOROSCOPY TECHNIQUE: The examination was performed with referring physician in attendance. Under fluoroscopic observation, fluoroscopic images were obtained. Radiologist was not present for the study. Radiologist did not perform the procedure. This dictation is for documentation of the radiation dosage only. There is no interpretation of the images. TOTAL NUMBER OF IMAGES: 1 COMPARISON: None RADIATION DOSE: 21.6 mGy FLUOROSCOPY TIME: 151 seconds REASON FOR EXAM: INSERTION, SPINAL CORD STIMULAROR, TRAIL X 2 LEADS Female, 71 years old. FINDINGS: Multiple images of the lumbar spine. Catheter placed in the lumbar spinal canal. RAD/Lumbar Spine 2 or 3 Views IMPRESSION: Fluoroscopic assistance images were obtained. Dictation for documentation purposes only. Electronically Signed: Richard Bland MD at 16:56 EST ,
[2021-06-24] MEDS: Lidocaine 1% (30 ml sdv) 30 ML Vial (12:49)
[2021-06-24] MEDS: Bupivacaine 0.25% 30 ML Vial (12:49)
[2021-06-24] MEDS: 0.9% Normal Saline (Pres. free 10 ML Vial (12:50)
[2021-06-24 13:06] VITALS: BP 119/67; BP 120/54; PULSE 58; RESP 16; TEMP 37.1; O2SAT 99
[2021-06-24 13:10] VITALS: BP 116/103; BP 120/54; PULSE 61; RESP 16; O2SAT 99
[2021-06-24 13:15] VITALS: BP 110/77; BP 120/54; PULSE 58; RESP 16; O2SAT 98
[2021-06-24 13:21] VITALS: BP 109/76; BP 120/54; PULSE 52; RESP 16; TEMP 36.8; O2SAT 99
[2021-06-24 14:42] VITALS: BP 114/58; BP 120/54; PULSE 56; RESP 16; TEMP 36.6; O2SAT 99
--- NOTE | 2021-06-24 15:33 | PCM.OPRPT ---
Report of Operation Description of Surgical Findings:: Pre-Operative Diagnosis: Lumbosacral radiculopathy, lumbosacral degenerative disc disease, lumbosacral spinal stenosis, central pain Post-Operative Diagnosis: Lumbosacral radiculopathy, lumbosacral degenerative disc disease, lumbosacral spinal stenosis, central pain Surgery/Procedure Performed:: 1. Spinal cord stimulator thoracolumbar leads placement x2 percutanous trial, spinal cord stimulator complex programming, 5-intraoperative fluoroscopic interpretation ANESTHESIA: MAC COMPLICATIONS: None BLOOD LOSS: Minimal Implanted device: Spinal cord stimulator lead [id number] lot number [id number], lead #[id number] lot number [id number] PROCEDURE IN DETAIL: History and physical today was reviewed. Risks and benefits of procedure explained. The patient understood, agreed to procedure, informed consent was obtained. IV inserted per routine protocol. The patient was taken to the operating room, placed in the prone position with a pillow positioned underneath the abdomen. A 2 g of Ancef IV piggyback was infused per anesthesia. The lower back area was prepped and draped in a sterile fashion using iodine x3 Ioban was placed. The C-arm was brought in position for AP view at the L1-2 vertebral bodies under direct visualization fluoroscopy on a true AP view the L1-2 interlaminar space was identified skin and subcutaneous tissue and size approximately 10 cc of a mix of 2% lidocaine and 0.25% Marcaine using a 25-gauge regular needle followed by a 25-gauge 3-1/2 inch spinal needle towards the interlaminar space at L2-3, the skin and subcutaneous tissue were then anesthetized and using an 11-gauge blade was then taken down to the skin and subcutaneous tissue using a 14-gauge 3-1/2 inch Touhy needle provided by the [employer] kit the needle was passed through the skin towards the interlaminar space at L1-2 and a left paramedian approach the needle was then advanced under direct visualization fluoroscopy towards the interlaminar space at L1-2 [id number] technique was then carried to air towards the interlaminar space at L1-2 once the tip of the needle was in the epidural space and loss of resistance was encountered to air and after confirmation of AP as well as oblique view of the spinal cord stimulator lead was then advanced under direct visualization fluoroscopy to be at the tip of the lead at T8 and the bottom of the lead around mid T10 after confirmation of AP as well as lateral view to confirm correct placement of the lead in the posterior compartment of the epidural space the previous procedure was then repeated to a level above at L1-2 interlaminar space to the right the second lead was then inserted under direct visualization with fluoroscopy to be at the mid T8 and mid T10 area the leads were were then connected to the external neurostimulator and patient was then awakened to confirm satisfactory coverage of the painful area once satisfactory coverage was then achieved the stylette of each needle was then removed and the skin and subcutaneous tissue on to the left of the paramedian needles was then taken anesthetized with a total of 10 cc of the previous mixture of 0.25% Marcaine and 2% lidocaine using a 25-gauge regular needle , using the 3-0 silk stitch to secure both leads to the skin with Steri-Strips, the skin was then covered with a Steri-Strips and bacitracin, the external stimulator was then attached to the pouch to the left of the patient's lower back area, the patient was then returned into the supine position in a stable condition and returned to recovery in a stable condition patient experienced no signs or symptoms of intrathecal or intravascular injection patient experienced no paresthesia the procedure was completed without any apparent difficulty any complication the patient appeared to tolerate well, motor as well as sensory function was unchanged from prior to the procedure ESTIMATED BLOOD LOSS: Minimal less than 25 mL ASSESSMENT AND PLAN: This is a 71-year-old female with lumbosacral radiculopathy lumbosacral, degenerative disc disease lumbosacral spinal stenosis status post 1. Spinal cord stimulator thoracolumbar leads placement x2 percutaneous trial, spinal cord stimulator programming, 5-intraoperative fluoroscopic interpretation, patient will continue her current medications a prescription was provided to the patient Augmentin 500 mg 1 p.o. every 8 hours for 7 days postop instruction were given in writing to the patient as well as verbally, patient will follow approximately 1 week for reevaluation.
== END 2021-06-24 23:59 | disposition home or self-care (01) ==
LOC: SDC 10:59 → AC 11:00
PROVIDERS: PCP Family Medicine; Referring Provider Anesthesiology Pain Medicine; Visit Provider Anesthesiology Pain Medicine
PROC: (CPT 63650; principal; 2021-06-24 12:15)
DX: M51.17 Intervertebral disc disorders with radiculopathy, lumbosacral region (principal); G82.20 Paraplegia, unspecified; L97.529 Non-pressure chronic ulcer of other part of left foot with unspecified severity; G37.3 Acute transverse myelitis in demyelinating disease of central nervous system; F11.20 Opioid dependence, uncomplicated; M79.12 Myalgia of auxiliary muscles, head and neck; L89.159 Pressure ulcer of sacral region, unspecified stage; M48.07 Spinal stenosis, lumbosacral region; M12.9 Arthropathy, unspecified; Z79.891 Long term (current) use of opiate analgesic
CPT/HCPCS: 63685; 63655 ×2; 00630; 72100; 76000; J7120; J3490

== ENCOUNTER 2021-06-25 11:00 | Outpatient (RCR) | payer MEDICARE, OTHER, SELFPAY ==
[2021-06-04 00:33] VITALS: BP 90/54; PULSE 64; RESP 16; TEMP 36.4; BMI 21.2
[2021-06-04 10:50] VITALS: BP 111/51; PULSE 64; RESP 18; TEMP 36.6; BMI 21.2
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
[2021-06-18 10:59] VITALS: BP 117/64; PULSE 70; RESP 16; TEMP 36.2; BMI 21.2
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
[2021-06-25 11:24] VITALS: BP 121/54; PULSE 70; RESP 20; TEMP 36.4; BMI 21.2
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
== END 2021-07-01 23:59 | disposition home or self-care (01) ==
LOC: WC 11:00
PROVIDERS: PCP Family Medicine; Visit Provider Surgery
DX: L97.522 Non-pressure chronic ulcer of other part of left foot with fat layer exposed (principal); L89.893 Pressure ulcer of other site, stage 3; L89.153 Pressure ulcer of sacral region, stage 3; G82.20 Paraplegia, unspecified; L97.521 Non-pressure chronic ulcer of other part of left foot limited to breakdown of skin; G89.29 Other chronic pain; F32.9 Major depressive disorder, single episode, unspecified; F41.9 Anxiety disorder, unspecified; R33.9 Retention of urine, unspecified; I87.2 Venous insufficiency (chronic) (peripheral); Z56.0 Unemployment, unspecified; Z80.0 Family history of malignant neoplasm of digestive organs; N31.9 Neuromuscular dysfunction of bladder, unspecified; K59.09 Other constipation; M54.50 Low back pain, unspecified; M79.2 Neuralgia and neuritis, unspecified; M21.951 Unspecified acquired deformity of right thigh
CPT/HCPCS: 11042

== ENCOUNTER 2021-07-30 11:00 | Outpatient (RCR) | payer MEDICARE, OTHER, SELFPAY ==
[2021-07-02 00:28] VITALS: BP 121/54; PULSE 70; RESP 20; TEMP 36.4; BMI 21.2
[2021-07-09 11:05] VITALS: BP 101/56; PULSE 70; TEMP 36.1; BMI 21.2
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
[2021-07-25 11:12] VITALS: BP 92/47; PULSE 82; TEMP 36.1; BMI 21.2
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
[2021-07-30 11:14] VITALS: BP 122/63; PULSE 72; RESP 18; TEMP 36.4; BMI 21.2
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
== END 2021-08-01 23:59 | disposition home or self-care (01) ==
LOC: WC 11:00
PROVIDERS: PCP Family Medicine; Visit Provider Surgery
DX: L89.893 Pressure ulcer of other site, stage 3 (principal); G82.20 Paraplegia, unspecified; L97.522 Non-pressure chronic ulcer of other part of left foot with fat layer exposed; I50.22 Chronic systolic (congestive) heart failure; R33.9 Retention of urine, unspecified; G62.9 Polyneuropathy, unspecified; I87.2 Venous insufficiency (chronic) (peripheral); Z99.3 Dependence on wheelchair; M54.50 Low back pain, unspecified; F32.A Depression, unspecified; D64.9 Anemia, unspecified; F41.9 Anxiety disorder, unspecified; G89.29 Other chronic pain; N31.9 Neuromuscular dysfunction of bladder, unspecified; K59.09 Other constipation; M62.838 Other muscle spasm; Z80.0 Family history of malignant neoplasm of digestive organs; Z56.0 Unemployment, unspecified
CPT/HCPCS: 11042

== ENCOUNTER 2021-08-27 11:00 | Outpatient (RCR) | payer MEDICARE, OTHER, SELFPAY ==
[2021-08-02 00:30] VITALS: BP 122/63; PULSE 72; RESP 18; TEMP 36.4; BMI 21.2
[2021-08-13 11:22] VITALS: BP 106/54; PULSE 70; RESP 16; TEMP 36.2; BMI 21.2
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
[2021-08-20 11:01] VITALS: BP 113/63; PULSE 71; TEMP 35.8; BMI 21.2
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
[2021-08-27 11:35] VITALS: BP 128/71; PULSE 74; RESP 18; TEMP 36.4; BMI 21.2
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
== END 2021-08-31 23:59 | disposition home or self-care (01) ==
LOC: WC 11:00
PROVIDERS: PCP Family Medicine; Visit Provider Surgery
DX: L89.893 Pressure ulcer of other site, stage 3 (principal); G82.20 Paraplegia, unspecified; L97.521 Non-pressure chronic ulcer of other part of left foot limited to breakdown of skin; G89.29 Other chronic pain; R33.9 Retention of urine, unspecified; M62.838 Other muscle spasm; N31.9 Neuromuscular dysfunction of bladder, unspecified; G62.9 Polyneuropathy, unspecified; K59.09 Other constipation; I87.2 Venous insufficiency (chronic) (peripheral); M54.50 Low back pain, unspecified; Z80.0 Family history of malignant neoplasm of digestive organs; G89.0 Central pain syndrome
CPT/HCPCS: 11042

== ENCOUNTER 2021-10-01 11:00 | Outpatient (RCR) | payer MEDICARE, OTHER, SELFPAY ==
[2021-09-01 00:29] VITALS: BP 128/71; PULSE 74; RESP 18; TEMP 36.4; BMI 21.2
[2021-09-03 11:06] VITALS: BP 116/38; PULSE 65; RESP 18; TEMP 36.4; BMI 21.2
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
[2021-09-17 11:03] VITALS: BP 134/51; PULSE 65; RESP 18; TEMP 36.3; BMI 21.2
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
== END 2021-10-01 23:59 | disposition home or self-care (01) ==
LOC: WC 11:00
PROVIDERS: PCP Family Medicine; Visit Provider Surgery
DX: L89.893 Pressure ulcer of other site, stage 3 (principal); G82.20 Paraplegia, unspecified; L97.522 Non-pressure chronic ulcer of other part of left foot with fat layer exposed; R33.9 Retention of urine, unspecified; G62.9 Polyneuropathy, unspecified; N31.9 Neuromuscular dysfunction of bladder, unspecified; F32.A Depression, unspecified; M62.838 Other muscle spasm; G89.29 Other chronic pain; F41.9 Anxiety disorder, unspecified; Z80.0 Family history of malignant neoplasm of digestive organs; M54.50 Low back pain, unspecified; K59.09 Other constipation; Z78.9 Other specified health status; R10.9 Unspecified abdominal pain; M79.2 Neuralgia and neuritis, unspecified
CPT/HCPCS: 11042; 99213; G0463

== ENCOUNTER → 2021-10-25 | Outpatient (CLI) | payer MEDICARE, OTHER, SELFPAY ==
[2021-10-25 15:45] LABS: Vitamin D,25 Hydroxy 63.1 ng/mL
== END | disposition home or self-care (01) ==
LOC: MFPLAB 11:58
PROVIDERS: PCP Family Medicine; Referring Provider Family Medicine; Visit Provider Family Medicine
DX: M81.0 Age-related osteoporosis without current pathological fracture (principal)
CPT/HCPCS: 36415; 82306

== ENCOUNTER 2021-12-10 10:05 | Outpatient (RCR) | payer MEDICARE, OTHER, SELFPAY ==
[2021-10-02 00:46] VITALS: BP 134/51; PULSE 65; RESP 18; TEMP 36.3; BMI 21.2
[2021-12-10 10:23] VITALS: BP 123/57; PULSE 71; RESP 20; TEMP 36
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
== END 2022-01-01 23:59 | disposition home or self-care (01) ==
LOC: WC 10:05
PROVIDERS: Visit Provider Surgery
DX: L89.153 Pressure ulcer of sacral region, stage 3 (principal); G82.20 Paraplegia, unspecified; R10.9 Unspecified abdominal pain; M54.50 Low back pain, unspecified; R33.9 Retention of urine, unspecified; G62.9 Polyneuropathy, unspecified; M62.838 Other muscle spasm; N31.9 Neuromuscular dysfunction of bladder, unspecified; G89.29 Other chronic pain; K59.09 Other constipation; Z80.0 Family history of malignant neoplasm of digestive organs
CPT/HCPCS: 11042; 99213; G0463

== ENCOUNTER 2021-12-26 11:32 | Emergency (ER) | payer MEDICARE, OTHER, SELFPAY ==
[2021-12-26] VITALS (9 sets, daily range): BP systolic 120–160; BP diastolic 62–99; PULSE 65–78; RESP 16–20; TEMP 36.1–37.1; O2SAT 17–100; BMI 17.7
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
[2021-12-26 12:44] LABS: Ferritin 4 ng/mL (8-252); Iron 9 ug/dL (50-170); Iron Binding Capacity,Total 413 ug/dL (250-450)
--- NOTE | 2021-12-26 14:53 | ED.RN ---
BLOOD PRODUCTS INCREASED TO 200 CC/HR. PT RESTING IN BED. NO QUESTIONS/ CONCERNS
== END 2021-12-26 19:55 | disposition home or self-care (01) ==
PROVIDERS: Emergency Provider Emergency Medicine; PCP Family Medicine; Visit Provider Emergency Medicine
DX: K92.2 Gastrointestinal hemorrhage, unspecified (principal); G82.20 Paraplegia, unspecified; M54.9 Dorsalgia, unspecified; Z99.3 Dependence on wheelchair; D50.9 Iron deficiency anemia, unspecified; Z80.0 Family history of malignant neoplasm of digestive organs; G89.29 Other chronic pain; Z79.899 Other long term (current) drug therapy; R63.4 Abnormal weight loss
CPT/HCPCS: 36415; 36430; 80048; 82274; 82728; 83540; 83550; 84443; 85025; 86850; 86900; 86901; 86920; 86922; 99282; J7040; P9016; A4216

== ENCOUNTER → 2021-12-26 | Outpatient (CLI) | payer MEDICARE, OTHER, SELFPAY ==
[2021-12-26 10:22] LABS: Absolute Lymphocyte Count 0.84 X10^3/uL (0.83-4.51); Absolute Neutrophil Count 1.2 X10^3/uL (2.0-7.7); Basophil# 0.02 X10^3/uL; Basophil% 0.8 % (0-1); Eosinophil# 0.25 X10^3/uL; Eosinophils% 9.7 % (0-5); Hematocrit 19.7 % (37-47); Lymphocyte # 0.84 X10^3/ul (0.83-4.51); Lymphocyte % 32.6 % (19-41); Mean Corp Hgb Conc 27.4 g/dL (32-36); Mean Corpuscular Hgb 19.6 pg (27.0-32.0); Mean Corpuscular Volume 71.4 fL (81-99); Mean Platelet Vol. 10.4 fl (6.2-12.0); Monocyte# 0.29 X10^3/uL; Monocyte% 11.2 % (0-10); NRBC Flagged by Analyzer 0 % (0-5); Neutrophil # 1.18 X10^3/uL (2.7-7.7); Neutrophil % 45.7 % (47-70); POSITIVE COUNT YES; POSITIVE MORPHOLOGY YES; Platelet Count 180 K/mm3 (150-450); RBC Distribution Width CV 21.2 % (11.6-14.6); RBC Distribution Width SD 54.2 fl (35.1-43.9); Red Blood Count 2.76 M/mm3 (4.2-5.4); White Blood Count 2.6 K/mm3 (4.4-11.0)
[2021-12-26 10:35] LABS: Differential Indicated SCAN CRITERIA MET; Hemoglobin 5.4 g/dL (12.0-15.0)
[2021-12-26 10:55] LABS: Anion Gap 5 (5-15); BUN 12 mg/dL (7-18); BUN/Creat Ratio 25.4 RATIO (10-20); Calcium,Total 7.8 mg/dL (8.5-10.1); Chloride 104 mmol/L (98-107); Creatinine, Serum 0.47 mg/dL (0.55-1.02); EST Glomerular Filtration Rate 138 mL/min (>60); Est Glom Filt Rate - Afr Amer 167 mL/min (>60); Glucose 93 mg/dL (74-106); Potassium 3.9 mmol/L (3.5-5.1); Sodium Level 138 mmol/L (136-145); Thyroid Stim Hormone (TSH) 3.23 uIU/mL (0.358-3.74)
[2021-12-26 11:10] LABS: Differential Comment SCANNED; Hypochromasia 4+; Microcytosis 2+
[2021-12-26 11:11] LABS: Schistocytes 1+
[2021-12-27 15:11] LABS: Pathologist Review Reviewed
== END | disposition home or self-care (01) ==
LOC: MTLAB 08:17
PROVIDERS: PCP Family Medicine; Referring Provider Family Medicine; Visit Provider Family Medicine
DX: R63.4 Abnormal weight loss (principal)
CPT/HCPCS: 36415; 80048; 84443; 85025

== ENCOUNTER → 2021-12-27 | Outpatient (CLI) | payer MEDICARE, OTHER, SELFPAY ==
[2021-12-27 17:56] LABS: Free T3 2.2 pg/mL (2.18-3.98); T4 Free Direct 0.95 ng/dL (0.76-1.46); Thyroid Stim Hormone (TSH) 1.85 uIU/mL (0.358-3.74)
[2021-12-30 09:40] LABS: Vitamin B12 388 pg/mL (211-911)
[2021-12-30 11:08] LABS: Anti-Centromere B Ab <0.2 AI (0.0-0.9); Anti-Chromatin <0.2 AI (0.0-0.9); Anti-Jo <0.2 AI (0.0-0.9); Anti-Scleroderma-70 AB <0.2 AI (0.0-0.9); RNP Ab 1.1 AI (0.0-0.9); SJOGREN'S Anti-SS-A test < 0.2 AI (0.0-0.9); SJOGREN'S Anti-SS-B test < 0.2 AI (0.0-0.9); Smith Ab <0.2 AI (0.0-0.9)
[2021-12-30 16:09] LABS: Endomysial Antibody IgA Negative (Negative)
[2021-12-31 18:09] LABS: Anti-dsDNA Ab <1 IU/mL (0-9)
[2022-01-01 13:51] LABS: Immunoglobulin A 198 mg/dL (87-352); t-Transglutaminase IgA 3 U/mL (0-3)
[2022-01-02 17:06] LABS: Anti-Smooth Muscle ABS 4 Units (0-19)
[2022-01-02 22:07] LABS: Albumin 3.8 g/dL (2.9-4.4); Alpha-1-Globulins 0.3 g/dL (0.0-0.4); Alpha-2-Globulins 0.6 g/dL (0.4-1.0); Cytoplasmic Ab (C-ANCA) <1:20 titer (Neg:<1:20); Gamma Globulin 1.1 g/dL (0.4-1.8); Immunoglobulin A 194 mg/dL (87-352); Immunoglobulin G 1080 mg/dL (586-1602); Immunoglobulin M 97 mg/dL (26-217); PROEL- TOTAL PROTEIN 6.9 g/dL (6.0-8.5)
[2022-01-05 14:09] LABS: Immunoglobulin E 83 IU/mL (6-495); Perinuclear Ab (P-ANCA) <1:20 titer (Neg:<1:20)
== END | disposition home or self-care (01) ==
LOC: LAB 16:05
PROVIDERS: PCP Family Medicine; Referring Provider Internal Medicine Gastroenterology; Visit Provider Internal Medicine Gastroenterology
DX: K92.2 Gastrointestinal hemorrhage, unspecified (principal); D64.9 Anemia, unspecified
CPT/HCPCS: 36415; 82607; 82784; 82785; 83516; 84165; 84439; 84443; 84481; 86225; 86235; 86255; 86256; 86334

== ENCOUNTER → 2022-01-03 | Outpatient (CLI) | payer MEDICARE, OTHER, SELFPAY ==
--- NOTE | 2022-01-03 13:58 | CT_ITS ---
STUDY: CT ABDOMEN AND PELVIS WITH CONTRAST REASON FOR EXAM: Female, 71 years old. GI bleed. History of transverse myelitis. RADIATION DOSAGE (If Supplied By Facility): CTDIvol = ( 14.42 ) mGy, DLP = ( 398.53 ) mGycm TECHNIQUE: Transaxial images were obtained from the dome of the diaphragm to the symphysis pubis without oral contrast. IV 100mL Isovue-300 was administered. Sagittal and coronal images were reconstructed. Individualized dose optimization techniques were used for this CT. COMPARISON: None. FINDINGS: The visualized lung bases are unremarkable. The visualized portions of the heart are within normal limits. Normal liver. Normal gallbladder and extrahepatic biliary system. Normal spleen. Normal pancreas. Normal bilateral adrenal glands. Normal right kidney. Normal left kidney. Normal visualized stomach. Normal small intestine. Large amount of fecal material is seen throughout the colon. There is a 4.5 cm x 5 cm soft tissue density/mass in the region of the perineum. This may represent a prolapsed rectum. Clinical correlation is recommended. This has progressed as compared to prior study. The appendix is visualized and appears normal. There is diffuse atherosclerotic calcification of the abdominal aorta, without a demonstrated aneurysm. Normal inferior vena cava. Normal retroperitoneum. Bladder wall thickening. Normal abdominal wall. There are diffuse degenerative changes of the visualized lumbar spine. Degenerative changes of both hip joints. CT/Abdomen/Pelvis WITH Contrast IMPRESSION: Large amount of fecal material is seen in the colon. Soft tissue density in the region of the perineum just distal to the rectum and anus. This may represent either possible mass lesion versus rectal prolapse. Clinical correlation is recommended. Electronically Signed: Forest Fajardo MD at 14:41 EDT ,
[2022-01-03 16:24] LABS: Absolute Lymphocyte Count 0.87 X10^3/uL (0.83-4.51); Absolute Neutrophil Count 2.7 X10^3/uL (2.0-7.7); Basophil# 0.04 X10^3/uL; Eosinophil# 0.16 X10^3/uL; Eosinophils% 3.9 % (0-5); Hematocrit 32.8 % (37-47); Hemoglobin 9.5 g/dL (12.0-15.0); Lymphocyte # 0.87 X10^3/ul (0.83-4.51); Lymphocyte % 21.1 % (19-41); Mean Corpuscular Volume 79.4 fL (81-99); Mean Platelet Vol. 9.4 fl (6.2-12.0); Monocyte% 7.3 % (0-10); NRBC Flagged by Analyzer 0 % (0-5); Neutrophil # 2.74 X10^3/uL (2.7-7.7); Neutrophil % 66.5 % (47-70); POSITIVE MORPHOLOGY YES; Platelet Count 216 K/mm3 (150-450); RBC Distribution Width CV 25.1 % (11.6-14.6); RBC Distribution Width SD 66.3 fl (35.1-43.9); Red Blood Count 4.13 M/mm3 (4.2-5.4); White Blood Count 4.1 K/mm3 (4.4-11.0)
[2022-01-03 16:30] LABS: Differential Indicated SCAN CRITERIA MET
[2022-01-03 17:01] LABS: Anisocytosis 2+; Differential Comment SCANNED; Hypochromasia 3+
== END | disposition home or self-care (01) ==
PROVIDERS: PCP Family Medicine; Referring Provider Internal Medicine Gastroenterology; Visit Provider Internal Medicine Gastroenterology
DX: K92.2 Gastrointestinal hemorrhage, unspecified (principal)
CPT/HCPCS: 36415; 74177; 85025; Q9967

== ENCOUNTER → 2022-02-19 | Outpatient (CLI) | payer MEDICARE, OTHER, SELFPAY ==
--- NOTE | 2022-02-19 11:06 | BD_ITS ---
STUDY: DUAL ENERGY X-RAY ABSORPTIOMETRY / DXA REASON FOR EXAM: Female, 71 years old. 733.00OsteoporosisBONE DENSITY REASON FOR EXAM TECHNIQUE: Bone Mineral Density (BMD) measurements of lumbar spine and left hip were obtained. COMPARISON: Comparison is made with prior study 03/09/2019. FINDINGS: Lumbar Spine (L1-L4): g/cm2 (0.775) / T-score (-2.5) / Z-score (0.3) Findings are suggestive of osteoporosis with a high fracture risk. Left Femur Total: g/cm2 (0.412) / T-score (-4.3) / Z-score (-2.8) Left Femoral Neck: g/cm2 (0.366) / T-score (-4.3) / Z-score (-2.5) The T-Scores on the most recent prior examination were: Lumbar Spine (L1-L4): There has been improvement of bone density since the previous examination. Left Femur Total: which represents an improvement of 10%. BD/Dexa Bone Density Study IMPRESSION: The patient is considered osteoporotic as outlined below according to World [employer] Organization (WHO) criteria with a high fracture risk. There has been improvement of bone density since the previous examination. Reference Information: The T-score is the number of standard deviations above or below the standard which is normal for young adults at their peak bone mineral density. The World Health Organization (WHO) interprets the T-scores as follows: Above -1 Normal bone density Between -1 and -2.5 Osteopenia Equal to / or below -2.5 Osteoporosis As a practical clinical guideline, osteopenia may be graded as follows: Mild -1 through -1.5 Moderate -1.6 through -2.0 Severe -2.1 through -2.4 The Z-score is the number of standard deviations above or below age-matched controls. A Z-score of less than -1.5 would be considered abnormal. References: 1. NIH Osteoporosis and Related Bone Diseases www osteo.org 2. International Society for Clinical Densitometry www iscd.org 3. National Osteoporosis Foundation www nof.org Electronically Signed: Forest Fajardo MD at 12:00 EDT ,
== END | disposition home or self-care (01) ==
LOC: OPBD 10:58
PROVIDERS: PCP Family Medicine; Referring Provider Family Medicine; Visit Provider Family Medicine
DX: M81.0 Age-related osteoporosis without current pathological fracture (principal)
CPT/HCPCS: 77080

== ENCOUNTER 2022-03-06 07:11 | Day surgery (SDC) | payer MEDICARE, OTHER, SELFPAY ==
[2022-03-06] VITALS (7 sets, daily range): BP systolic 97–129; BP diastolic 50–90; PULSE 63–92; RESP 15–16; TEMP 36.4; O2SAT 98–100; BMI 17.9
[2022-03-06] MEDS: Lactated Ringers 1,000 ML 15 ML IV (07:54)
--- NOTE | 2022-03-06 08:15 | COLBX_PTH ---
PATIENT: MAGALI ANDREA LOC: EN U#:[id number] AGE/SX: 71/F ROOM: RE03/06/[address]: Dr. Stef Ewing DO : 1950 BED: DIS: 03/06/2022 SPEC #: [id number] RECD: 03/06/22 10:08 STATUS: CHRISTIE RESteve #: [id number] ALLIE: 03/06/22 08:[address]: Stef Ewing DEPT: SURGICAL PATHOLOGY RECD BY: Agata Ely ENTERED: 03/06/22 11:02 SP TYPE: COLON BX SOCRATES DR: Dr. Casie Trevizo MD Tissues: A - COLON BIOPSY B - COLON BIOPSY C - Rectum, NOS Procedures: Surgery Specimen Level IV HEADER OPERATION: Colonoscopy (MAC) with biopsies and gold probe PRE-OP DIAGNOSIS: GI bleed TISSUE SUBMITTED: A ? Colon anastomosis biopsy, B ? Anastomotic colon ulcer biopsy, C ? Rectum biopsy MICROSCOPIC DIAGNOSIS A. Colonic anastomosis site, biopsy: Mild glandular distortion, minimal chronic inflammation with mild hyperplastic change and mild acute inflammation. B. Anastomotic colon ulcer, biopsy: Fibrinopurulent material consistent with ulcer site. C. Rectum, biopsy: Ulceration with associated fibrinopurulent material and mild glandular distortion. AM:christiano 03/07/2022 MICROSCOPIC DESCRIPTION Slides are reviewed. GROSS DESCRIPTION A - Received in fixative is one container labeled with the patient's name and designated anastomotic site. The specimen consists of multiple irregular fragments of light matthews soft tissue that in aggregate measure 1 x 0.2 x 0.1 cm. The specimen is totally submitted in one cassette. B - Received in fixative is one container labeled with the patient's name and designated anastomotic ulcer. The specimen consists of two irregular fragments of light matthews soft tissue that in aggregate measure 0.5 x 0.2 x 0.1 cm. The specimen is totally submitted in one cassette. C - Received in fixative is one container labeled with the patient's name and designated rectum biopsy. The specimen consists of multiple irregular fragments of light matthews soft tissue that in aggregate measure 0.7 x 0.2 x 0.1 cm. The specimen is totally submitted in one cassette. / AM:christiano 03/06/2022 TC:2 CPT: 59945 x3
--- NOTE | 2022-03-06 08:23 | HP.PCM_ITS ---
History and Physical Date of Admission: 03/06/22 ?71 F who presents to the office today for Follow up visit. [place] established with this clinic 06.12.21 with referral from PCP for evaluation of lower abdominal pain/cramping with intermittent emesis, suspect recurrent partial small bowel obstruction. Presented to [facility] ED 04.06.21 with pseudoblockage found. He recalls similar symptoms happening multiple times since . He was prescribed a motility medication following hospitalization that has been somewhat helpful. Additional medical history includes hypothyroidism, hyperlipidemia, hypocalcemia, anxiety, insomnia, hypersomnia, HTN, IBS, sleep apnea, snoring, hypogonadism. ?Surgical history includes ACL repair, knee arthroscopy, back surgery, bowel obstruction. CT abd/pel 04.06.21 found early small bowel obstruction. KUB 04.06.21 found enteric tube tip in the stomach. Present for decompression. Upper GI and small bowel follow through 05.01.21 ? unremarkable with no signs of GERD. Colonoscopy performed 07.09.21 finding congested mucosa of the sigmoid colon and terminal ileum. Biopsy found acute and chronic nonspecific inflammation. Biochemical workup 08.14.21 ESR, CRP, Homocysteine, Stool calprotectin all WNL. Patency capsule ., no capsule seen on Xray Plan LV 09.27.21: Acute pseudo-obstruction of small intestine ? biochemical workup Reports that he is having at least one BM a day. Last several days he has had an increase in the number of stools in a day and softer stools.? Denies abdominal pain. ROS Const Constitutional: No anorexia, fatigue, fever(s), weight change or sleep problems Eyes Eyes: No change in vision ENT ENT: No abnormal hearing, difficulty swallowing, mouth lesions, tongue swelling or throat swelling Resp Respiratory: No cough or shortness of breath Cardio Cardiology: No chest pain at rest, chest pain with exertion, shortness of breath or dyspnea on exertion Gastro GI: No difficulty swallowing Genitourinary-Female: No difficulty urinating or burning urination Musc Musculoskeletal: No joint pain, joint swelling, muscle weakness or decreased muscle mass Skin Skin: No hair loss in leg, yellowing of the eye, itchy eyes, rash, skin ulcer or skin swelling Neuro Neurology: No abnormal hearing, abnormal movements, confusion, unsteady gait/balance or memory loss Psych Psychiatric: No anxiety, No confusion and No memory loss Endo Endocrine: No fatigue or weight change Aller/Imm Allergy/Immunologic: No itchy eyes, throat swelling or tongue swelling Jeffery/Lymp Hematologic/Lymphatic: No easy bleeding, easy bruising or enlarged lymph nodes Exam Const General: cooperative and comfortable Nutritional Appearance: average body habitus and well nourished [facility] Head: normal to inspection Ears: hearing grossly normal bilaterally Nose: external nose normal Face and sinus: normal facial exam Mouth: oral mucosae normal Throat: posterior oropharynx normal Eyes General: appearance normal, both eyes and all related structures Neck Neck: normal visual inspection Chest Chest palpation & inspection: normal inspection of the chest and normal palpation of entire chest wall Resp Effort & Inspection: normal respiratory effort Auscultation: Bilateral: Clear to Auscultation Cardio Palpation: normal PMI Rate: regular rate Rhythm: regular rhythm GI Inspection: normal to inspection Auscultation: normal bowel sounds Percussion: normal to percussion Palpation: no hepatosplenomegaly Skin General: no rashes or lesions noted Neuro General: patient alert Extrem General: normal to inspection Psych Affect: normal affect Quality Reporting Tobacco Screening ([facility]) Smoking Status: Never smoker Assessment and Plan Assessment and Plan (1) GI bleed: ?Status:?Chronic ?Plan: She is known to have a stercoral ulcer that is not known to have healed completely.? I would think that would be 1 and main etiologies of a lower GI bleed along with hemorrhoidal disease secondary to paraplegia.? Also diagnosis could be ischemic colitis from chronic constipation versus diverticular bleed from chronic constipation. (2) Chronic constipation: ?Status:?Chronic ?Plan: Recommend continue MiraLAX therapy as previously ordered.? She will need to increase to twice a day due to the fact she needs take iron due to severe iron deficiency anemia. (3) Iron (Fe) deficiency anemia: ?Status:?Acute ?Plan: Severe iron deficiency anemia with an iron level of 10, ferritin of 4, normal TIBC.? Reticulocyte count was not ordered.? She did have a lot of immaturities including schistocytes that were seen on the peripheral smear.? We should get a hemolysis work-up along with labs for celiac disease as that can cause iron deficiency anemia and really severe cases.? She will also need an upper and lower endoscopy evaluate her upper lower GI tract for signs of chronic blood loss anemia.? I will order CT scan abdomen pelvis due to her weight loss and order iron transfusions for her to be seen by hematology to continue iron transfusions. ? ? ? Orders: Orders ANCA Today K92.2 - Gastrointestinal hemorrhage, unspecified ? Celiac Disease Profile Today K92.2 - Gastrointestinal hemorrhage, unspecified ? Immunoglobulin E Today K92.2 - Gastrointestinal hemorrhage, unspecified ? Vitamin B12 Today K92.2 - Gastrointestinal hemorrhage, unspecified ? Free T3 Today K92.2 - Gastrointestinal hemorrhage, unspecified ? T4 Free Direct Today D64.9 - Anemia, unspecified, K92.2 - Gastrointestinal hemorrhage, unspecified ? Thyroid Stim Hormone (TSH) Today D64.9 - Anemia, unspecified, K92.2 - Gastrointestinal hemorrhage, unspecified ? [facility] Comprehensive Panel Today K92.2 - Gastrointestinal hemorrhage, unspecified ? TAB + Protein Elect, Serum Today K92.2 - Gastrointestinal hemorrhage, unspecified ? CT Abd/Pelvis W/WO Contrast Today Z78.9 - Other specified health status ? CBC W/Diff, Automated Today D50.9 - Iron deficiency anemia, unspecified, G89.29 - Other chronic pain, K92.2 - Gastrointestinal hemorrhage, unspecified, M54.9 - Dorsalgia, unspecified ? CT ANGIO ABD&PEL W/O&W/DYE Today K92.2 - Gastrointestinal hemorrhage, unspecified ? Referrals Hematology ? D50.9 - Iron deficiency anemia, unspecified, K92.2 - Gastrointestinal hemorrhage, unspecified ? I have examined the patient and the H&P has been reviewed. There are no clinical changes since date of exam.
--- NOTE | 2022-03-06 09:18 | OP.COLON_ITS ---
Patient Name: Aleena Perales Procedure Date: 03/06/2022 8:25 AM Date of : 1950 Age: 71 Procedure: Colonoscopy Indications: Iron deficiency anemia Providers: Stef Ewing DO Referring MD: Casie Trevizo Medicines: Monitored Anesthesia Care Patient Profile: This is a 71 year old female. Refer to note in patient chart for documentation of history and physical. Last Colonoscopy: 1 year ago. Complications: No immediate complications. Procedure: Pre-Anesthesia Assessment: - Prior to the procedure, a History and Physical was performed, and patient medications and allergies were reviewed. The patient is competent. The risks and benefits of the procedure and the sedation options and risks were discussed with the patient. All questions were answered and informed consent was obtained. Patient identification and proposed procedure were verified by the physician in the pre-procedure area. Mental Status Examination: alert and oriented. Airway Examination: normal oropharyngeal airway and neck mobility. Respiratory Examination: clear to auscultation. CV Examination: normal. Prophylactic Antibiotics: The patient does not require prophylactic antibiotics. Prior Anticoagulants: The patient has taken no previous anticoagulant or antiplatelet agents. After reviewing the risks and benefits, the patient was deemed in satisfactory condition to undergo the procedure. The anesthesia plan was to use moderate sedation / analgesia (conscious sedation). Immediately prior to administration of medications, the patient was re-assessed for adequacy to receive sedatives. The heart rate, respiratory rate, oxygen saturations, blood pressure, adequacy of pulmonary ventilation, and response to care were monitored throughout the procedure. The physical status of the patient was re-assessed after the procedure. After I obtained informed consent, the scope was passed under direct vision. Throughout the procedure, the patient's blood pressure, pulse, and oxygen saturations were monitored continuously. The Colonoscope was introduced through the anus and advanced to the ileocolonic anastomosis. The colonoscopy was performed without difficulty. The patient tolerated the procedure well. The quality of the bowel preparation was good. Scope In: 8:35:30 AM Scope Withdrawal Time 0 hours 26 minutes 53 seconds Scope Out: 9:09:00 AM Total Procedure Duration Time 0 hours 33 minutes 30 seconds Findings: The perianal and digital rectal examinations were normal. A single (solitary) nine mm ulcer was found in the rectum. No bleeding was present. Biopsies were taken with a cold forceps for histology. Verification of patient identification for the specimen was done. Estimated blood loss was minimal. There was evidence of a prior end-to-side ileo-colonic anastomosis in the ascending colon. This was patent and was characterized by congestion, edema, erythema and ulceration. The anastomosis was not traversed. Biopsies were taken with a cold forceps for histology. Verification of patient identification for the specimen was done. Estimated blood loss was minimal. Coagulation for hemostasis using heater probe was successful. Estimated blood loss was minimal. Impression: - A single (solitary) ulcer in the rectum. Biopsied. - Patent end-to-side ileo-colonic anastomosis, characterized by congestion, edema, erythema and ulceration. Biopsied. Treated with a heater probe. Recommendation: - Discharge patient to home. - Resume previous diet. - Continue present medications. - Await pathology results. - Repeat colonoscopy in 5 years for surveillance. Procedure Code(s): --- Professional --- 50493, 59, Colonoscopy, flexible; with control of bleeding, any method 23383, Colonoscopy, flexible; with biopsy, single or multiple CPT copyright 2017 [employer]. All rights reserved. The codes documented in this report are preliminary and upon die maker bench stamping review may be revised to meet current compliance requirements. Stef Ewing DO 03/06/2022 9:18:00 AM This report has been signed electronically. Number of Addenda: 0 Note Initiated On: 03/06/2022 8:25 AM
--- NOTE | 2022-03-06 09:19 | OP.CCLET_ITS ---
03/06/2022 Casie Trevizo [address] [place] [address] Re : Colonoscopy procedure for Aleena Perales Dear Dr. Trevizo This procedure was performed on March. My impressions and recommendations are as follows: Impressions : - A single (solitary) ulcer in the rectum. Biopsied. - Patent end-to-side ileo-colonic anastomosis, characterized by congestion, edema, erythema and ulceration. Biopsied. Treated with a heater probe. Recommendations : - Discharge patient to home. - Resume previous diet. - Continue present medications. - Await pathology results. - Repeat colonoscopy in 5 years for surveillance. My findings are described in the full procedure note, which is enclosed. If I can be of further assistance, please feel free to contact me at . Sincerely, Stef Ewing, 03/06/2022 9:18:00 AM This report has been signed electronically.
== END 2022-03-06 10:55 | disposition home or self-care (01) ==
LOC: EN 07:12 → AC 07:12
PROVIDERS: PCP Family Medicine; Referring Provider Family Medicine; Visit Provider Internal Medicine Gastroenterology
PROC: 0DJD8ZZ Inspection of Lower Intestinal Tract, Via Natural or Artificial Opening Endoscopic (ICD-10-PCS; CPT 45378; principal; 2022-03-06 08:10)
DX: K62.6 Ulcer of anus and rectum (principal); D50.9 Iron deficiency anemia, unspecified; K92.2 Gastrointestinal hemorrhage, unspecified; G89.29 Other chronic pain; M54.9 Dorsalgia, unspecified; K59.09 Other constipation
CPT/HCPCS: 45380; 45382; 88305; J7120; J2405

== ENCOUNTER → 2022-05-23 | Outpatient (CLI) | payer MEDICARE, OTHER, SELFPAY ==
--- NOTE | 2022-05-23 11:58 | BI_ITS ---
MAMMOGRAPHY - BILATERAL SCREENING REASON FOR EXAM: Female, 72 years old. Routine annual screening examination. PERTINENT HISTORY: Non-contributory. TECHNIQUE: Digital bilateral breast jd (3D mammographic acquisition) in the CC and MLO projections. 2-D mediolateral oblique (MLO) and craniocaudad (CC) views of both breasts were obtained. CAD: Full Field Digital Mammography with Computer Added Detection was performed. COMPARISON: Comparison is made with prior study dated 05/21/2021 and 02/20/2020. FINDINGS: Breast Composition: There are scattered areas of fibroglandular density. There are no dominant masses or suspicious calcifications. No other significant abnormalities are identified. There has been no significant change since the prior study. BI/SCRN MAMM (CAD)W/JD BILAT IMPRESSION: Stable bilateral screening mammogram. Yearly follow-up mammogram recommended. (A) ASSESSMENT CATEGORY: BIRADS Category 1: Negative. A letter regarding these results will be sent to the patient by the facility within 30 days. Approximately 10% of breast cancers are not detected by mammography. A normal mammogram should not delay biopsy of a clinically suspicious abnormality. [id number] Electronically Signed: Forest Fajardo MD at 13:01 EST ,
== END | disposition home or self-care (01) ==
LOC: OPBI 11:56
PROVIDERS: PCP Family Medicine; Visit Provider Nurse Practitioner Women's Health
DX: Z12.31 Encounter for screening mammogram for malignant neoplasm of breast (principal)
CPT/HCPCS: 77063; 77067

== ENCOUNTER → 2022-06-04 | Outpatient (CLI) | payer MEDICARE, OTHER, SELFPAY ==
[2022-06-04 16:31] LABS: Absolute Lymphocyte Count 0.87 X10^3/uL (0.83-4.51); Absolute Neutrophil Count 3.1 X10^3/uL (2.0-7.7); Basophil# 0.02 X10^3/uL; Basophil% 0.5 % (0-1); Eosinophil# 0.07 X10^3/uL; Eosinophils% 1.6 % (0-5); Hematocrit 36.4 % (37-47); Hemoglobin 12.1 g/dL (12.0-15.0); Lymphocyte # 0.87 X10^3/ul (0.83-4.51); Lymphocyte % 20.1 % (19-41); Mean Corp Hgb Conc 33.2 g/dL (32-36); Mean Corpuscular Hgb 33.8 pg (27.0-32.0); Mean Corpuscular Volume 101.7 fL (81-99); Mean Platelet Vol. 9.8 fl (6.2-12.0); Monocyte# 0.27 X10^3/uL; Monocyte% 6.2 % (0-10); NRBC Flagged by Analyzer 0 % (0-5); Neutrophil # 3.09 X10^3/uL (2.7-7.7); Neutrophil % 71.4 % (47-70); Platelet Count 218 K/mm3 (150-450); RBC Distribution Width CV 13.2 % (11.6-14.6); RBC Distribution Width SD 49.3 fl (35.1-43.9); RET-HE 35.8 pg (30-35); Red Blood Count 3.58 M/mm3 (4.2-5.4); Reticulocyte Count 1.89 % (0.5-1.5); White Blood Count 4.3 K/mm3 (4.4-11.0)
[2022-06-04 17:02] LABS: Ferritin 13 ng/mL (8-252); Iron 147 ug/dL (50-170); Iron Binding Capacity,Total 280 ug/dL (250-450); LDH 191 U/L (84-246)
[2022-06-06 14:09] LABS: Alpha-1-Globulins 0.2 g/dL (0.0-0.4); Alpha-2-Globulins 0.5 g/dL (0.4-1.0); Gamma Globulin 0.9 g/dL (0.4-1.8); Immunoglobulin A 178 mg/dL (64-422); Immunoglobulin G 999 mg/dL (586-1602); Immunoglobulin M 85 mg/dL (26-217); PROEL- TOTAL PROTEIN 6.5 g/dL (6.0-8.5)
[2022-06-06 17:16] LABS: Haptoglobin 60 mg/dL (42-346)
== END | disposition home or self-care (01) ==
LOC: LAB 16:03
PROVIDERS: PCP Family Medicine; Visit Provider Internal Medicine Gastroenterology
DX: M54.9 Dorsalgia, unspecified (principal); G89.29 Other chronic pain; K63.3 Ulcer of intestine; D64.9 Anemia, unspecified
CPT/HCPCS: 36415; 82728; 82784; 83010; 83540; 83550; 83615; 84165; 85025; 85045; 86334

== ENCOUNTER → 2022-08-06 | Outpatient (CLI) | payer MEDICARE, OTHER, SELFPAY ==
[2022-08-06 16:00] LABS: Mucous, Urine 0 SEEN /hpf (<or=2+); Squamous Epithelial Cells - UA 0 SEEN /hpf (5-10)
[2022-08-06 16:20] LABS: Color, Urine Yellow (Yellow); Glucose, Dipstick Normal (Normal); Ketone-Dipstick Negative (Negative); Leukocyte Esterase-Dipstick 500 /ul (Negative); Nitrite-Dipstick Positive (Negative); Occult Blood-Urine 50 /ul (Negative); Protein-Dipstick 30 mg/dl (Negative); Specific Gravity, Urine 1.005 (1.002-1.030); Urine Bilirubin Dipstick Negative (Negative); Urine Clarity Cloudy (Clear); Urine Urobilinogen Normal (Normal)
[2022-08-06 16:22] LABS: Hematocrit 34.9 % (37-47); Hemoglobin 11.3 g/dL (12.0-15.0); Mean Corp Hgb Conc 32.4 g/dL (32-36); Mean Corpuscular Hgb 32.5 pg (27.0-32.0); Mean Corpuscular Volume 100.3 fL (81-99); Mean Platelet Vol. 9.8 fl (6.2-12.0); Platelet Count 269 K/mm3 (150-450); RBC Distribution Width CV 13.3 % (11.6-14.6); Red Blood Count 3.48 M/mm3 (4.2-5.4)
[2022-08-06 16:32] LABS: Bacteria 3+ /hpf (None Seen); Red Blood Cells-Urine 10-25 SEEN /hpf (0-5); White Blood Cells 25-50 SEEN /hpf (0-5)
[2022-08-06 16:57] LABS: Anion Gap 4 (5-15); BUN 11 mg/dL (7-18); BUN/Creat Ratio 28.1 RATIO (10-20); Calcium,Total 8.9 mg/dL (8.5-10.1); Chloride 100 mmol/L (98-107); Creatinine, Serum 0.39 mg/dL (0.55-1.02); EST Glomerular Filtration Rate 172 mL/min (>60); Est Glom Filt Rate - Afr Amer 208 mL/min (>60); Glucose 100 mg/dL (74-106); Potassium 4.1 mmol/L (3.5-5.1); Sodium Level 136 mmol/L (136-145); Thyroid Stim Hormone (TSH) 1.03 uIU/mL (0.358-3.74)
== END | disposition home or self-care (01) ==
LOC: LAB 15:54
PROVIDERS: Family Medicine; Referring Provider Family Medicine; Visit Provider Family Medicine
DX: G47.30 Sleep apnea, unspecified (principal); G37.3 Acute transverse myelitis in demyelinating disease of central nervous system; R63.4 Abnormal weight loss; N39.0 Urinary tract infection, site not specified
CPT/HCPCS: 36415; 80048; 81001; 84443; 85027; 87077; 87086; 87088; 87186

== ENCOUNTER → 2022-08-11 | Outpatient (CLI) | payer MEDICARE, OTHER, SELFPAY ==
[2022-08-11 16:26] LABS: Vitamin B12 775 pg/mL (211-911)
== END | disposition home or self-care (01) ==
LOC: LAB 14:44
PROVIDERS: Referring Provider Nurse Practitioner Family; Visit Provider Nurse Practitioner Family
DX: D64.9 Anemia, unspecified (principal)
CPT/HCPCS: 36415; 82607; 82746

== ENCOUNTER 2022-09-17 12:52 | Emergency (ER) | payer MEDICARE, OTHER, SELFPAY ==
[2022-09-17 12:53] VITALS: BP 168/83; PULSE 68; RESP 18; TEMP 35.8; O2SAT 100
--- NOTE | 2022-09-17 13:27 | CT_ITS ---
STUDY: CT ABDOMEN AND PELVIS WITH CONTRAST REASON FOR EXAM: Female, 72 years old. Diffuse abdominal pain. Rectal bleeding. RADIATION DOSAGE (If Supplied By Facility): CTDIvol = ( 13.61 ) mGy, DLP = ( 355.03 ) mGycm TECHNIQUE: Transaxial images were obtained from the dome of the diaphragm to the symphysis pubis without oral contrast. IV 100mL Isovue-300 was administered. Sagittal and coronal images were reconstructed. Individualized dose optimization techniques were used for this CT. COMPARISON: Comparison is made with prior study dated January 03, 2022. FINDINGS: Pectus excavatum deformity. The visualized portions of the heart are within normal limits. There is decreased attenuation of the liver consistent with steatosis. Normal gallbladder and extrahepatic biliary system. Normal spleen. There is diffuse atrophy of the pancreas. Normal bilateral adrenal glands. Normal right kidney. Normal left kidney. Normal visualized stomach. Normal small intestine. Small amount of free fluid is seen in the right paracolic cutter. Large amount of fecal material is seen throughout the colon. This is worse in the cecum. The cecum is dilated. Once again, there is a 4.57 x 5 some soft tissue density in the region of the perineum. This may represent a prolapsed rectum although clinical correlation is recommended. There is diffuse atherosclerotic calcification of the abdominal aorta, without a demonstrated aneurysm. Normal inferior vena cava. Normal retroperitoneum. Normal urinary bladder. Small amount of pelvic fluid. Normal abdominal wall. There are diffuse degenerative changes of the visualized lumbar spine. CT/Abdomen/Pelvis W IV Cont ONLY IMPRESSION: Persistent soft tissue mass in the region of the perineum as described. This may represent a prolapsed rectum although an underlying mass lesion cannot be excluded. Large amount of fecal material is seen in the colon worse in the right hemicolon. There is evidence of a surgical anastomosis at the level of the cecum. Small amount of the pelvic ascites as well as fluid in the right paracolic gutter. Electronically Signed: Forest Fajardo MD at 14:39 EDT ,
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
[2022-09-17] MEDS: Ondansetron 4 MG/2 ML Vial IV (13:37)
[2022-09-17 13:38] VITALS: BMI 19.7
[2022-09-17] MEDS: fentaNYL 100 MCG/2 ML Ampul 50 MCG IV (13:38)
[2022-09-17 13:47] LABS: Absolute Lymphocyte Count 0.64 X10^3/uL (0.83-4.51); Absolute Neutrophil Count 7.2 X10^3/uL (2.0-7.7); Basophil# 0.02 X10^3/uL; Basophil% 0.2 % (0-1); Eosinophil# 0.07 X10^3/uL; Eosinophils% 0.8 % (0-5); Hematocrit 37.7 % (37-47); Lymphocyte # 0.64 X10^3/ul (0.83-4.51); Lymphocyte % 7.7 % (19-41); Mean Corp Hgb Conc 34.5 g/dL (32-36); Mean Corpuscular Hgb 33.8 pg (27.0-32.0); Mean Corpuscular Volume 97.9 fL (81-99); Mean Platelet Vol. 9.7 fl (6.2-12.0); Monocyte# 0.38 X10^3/uL; Monocyte% 4.6 % (0-10); NRBC Flagged by Analyzer 0 % (0-5); Neutrophil # 7.22 X10^3/uL (2.7-7.7); Neutrophil % 86.5 % (47-70); Platelet Count 231 K/mm3 (150-450); RBC Distribution Width CV 13.1 % (11.6-14.6); RBC Distribution Width SD 46.8 fl (35.1-43.9); Red Blood Count 3.85 M/mm3 (4.2-5.4); White Blood Count 8.4 K/mm3 (4.4-11.0)
[2022-09-17 13:56] LABS: Mucous, Urine 0 SEEN /hpf (<or=2+)
[2022-09-17 14:02] LABS: Color, Urine Yellow (Yellow); Glucose, Dipstick Normal (Normal); Ketone-Dipstick 5 mg/dl (Negative); Leukocyte Esterase-Dipstick 100 /ul (Negative); Nitrite-Dipstick Negative (Negative); Occult Blood-Urine 25 /ul (Negative); Protein-Dipstick 30 mg/dl (Negative); Urine Bilirubin Dipstick Negative (Negative); Urine Clarity Sl. Cloudy (Clear); Urine Urobilinogen Normal (Normal)
[2022-09-17 14:05] LABS: ALB/GLOB Ratio 1.1 RATIO (0.9-2.4); AST(SGOT) 21 U/L (15-37); Alanine Aminotransfer ALT/SGPT 27 U/L (13-56); Albumin, Serum 3.9 g/dL (3.2-5.0); Alkaline Phosphatase 55 U/L (45-117); Amylase 40 U/L (25-115); Anion Gap 8 (5-15); BUN 7 mg/dL (7-18); BUN/Creat Ratio 13.4 RATIO (10-20); Calcium,Total 8.7 mg/dL (8.5-10.1); Chloride 98 mmol/L (98-107); Creatinine, Serum 0.52 mg/dL (0.55-1.02); EST Glomerular Filtration Rate 123 mL/min (>60); Est Glom Filt Rate - Afr Amer 149 mL/min (>60); Estimated Creatinine Clearance 38.61 ml/min; Globulin 3.4 g/dL (2.2-4.2); Glucose 143 mg/dL (74-106); Lipase 19 U/L (13-75); Potassium 3.4 mmol/L (3.5-5.1); Protein, Total 7.3 g/dL (6.4-8.2); Sodium Level 133 mmol/L (136-145)
[2022-09-17 14:12] LABS: Bacteria 2+ /hpf (None Seen); Red Blood Cells-Urine 0-5 SEEN /hpf (0-5); Squamous Epithelial Cells - UA 0-5 SEEN /hpf (5-10); White Blood Cells 10-25 SEEN /hpf (0-5)
[2022-09-17 16:12] VITALS: BP 168/72
[2022-09-17] MEDS: Cephalexin 250 MG Capsule 500 MG PO (16:14)
== END 2022-09-17 16:53 | disposition home or self-care (01) ==
PROVIDERS: Emergency Provider Emergency Medicine; PCP Family Medicine; Visit Provider Emergency Medicine
DX: R10.9 Unspecified abdominal pain (principal); G82.20 Paraplegia, unspecified; N39.0 Urinary tract infection, site not specified; K59.00 Constipation, unspecified; Z97.8 Presence of other specified devices; F32.A Depression, unspecified; Z79.899 Other long term (current) drug therapy; Z99.81 Dependence on supplemental oxygen; F41.9 Anxiety disorder, unspecified
CPT/HCPCS: 74177; 80053; 81001; 82150; 83690; 85025; 87077; 87086; 87088; 87186; 99284; J7030; Q9967; A4216; J2405

== ENCOUNTER 2022-09-19 19:40 | Emergency (ER) | payer MEDICARE, OTHER, SELFPAY ==
[2022-09-19 19:40] VITALS: BP 143/91; PULSE 115; RESP 16; TEMP 36.3; O2SAT 95
[2022-09-19 20:17] VITALS: BMI 19.3
[2022-09-19] MEDS: Ondansetron 4 MG/2 ML Vial IV (20:30)
[2022-09-19] MEDS: 0.9% Normal Saline 1,000 ML 1000 ML IV (20:30)
[2022-09-19 20:37] LABS: Hematocrit 39.7 % (37-47); Hemoglobin 13.7 g/dL (12.0-15.0); Mean Corp Hgb Conc 34.5 g/dL (32-36); Mean Corpuscular Hgb 32.9 pg (27.0-32.0); Mean Corpuscular Volume 95.4 fL (81-99); Mean Platelet Vol. 10.3 fl (6.2-12.0); POSITIVE DIFFERENTIAL YES; POSITIVE MORPHOLOGY YES; Platelet Count 239 K/mm3 (150-450); RBC Distribution Width CV 12.6 % (11.6-14.6); RBC Distribution Width SD 44.4 fl (35.1-43.9); Red Blood Count 4.16 M/mm3 (4.2-5.4)
[2022-09-19 20:53] LABS: Differential Indicated MANUAL DIFF
[2022-09-19 20:55] LABS: ALB/GLOB Ratio 0.9 RATIO (0.9-2.4); AST(SGOT) 29 U/L (15-37); Alanine Aminotransfer ALT/SGPT 19 U/L (13-56); Albumin, Serum 3.8 g/dL (3.2-5.0); Alkaline Phosphatase 60 U/L (45-117); Anion Gap 11 (5-15); BUN 34 mg/dL (7-18); BUN/Creat Ratio 34.5 RATIO (10-20); Calcium,Total 10.8 mg/dL (8.5-10.1); Chloride 85 mmol/L (98-107); Creatinine, Serum 0.99 mg/dL (0.55-1.02); EST Glomerular Filtration Rate 59 mL/min (>60); Est Glom Filt Rate - Afr Amer 71 mL/min (>60); Estimated Creatinine Clearance 38.18 ml/min; Globulin 4.1 g/dL (2.2-4.2); Glucose 130 mg/dL (74-106); Lymphocyte 3 % (19-41); Monocyte 7 % (0-10); Neutrophil-Segmented 90 % (47-70); Potassium 3.6 mmol/L (3.5-5.1); Protein, Total 7.9 g/dL (6.4-8.2); Sodium Level 126 mmol/L (136-145); Total Cells Counted 100 (MANUAL DIFF)
[2022-09-19 20:56] LABS: Absolute Neutrophil Count 12.6 X10^3/uL (2.0-7.7); Neutrophil # 12.62 X10^3/uL (2.7-7.7)
[2022-09-19 20:57] LABS: Absolute Lymphocyte Count 0.42 X10^3/uL (0.83-4.51); Lymphocyte # 0.42 X10^3/ul (0.83-4.51); Platelet Estimate ADEQUATE (ADEQ); Red Cell Morphology NORM C+C NORMAL (NORM C&C)
[2022-09-19 21:11] LABS: Lactic Acid 1.3 mmol/L (0.4-1.9)
--- NOTE | 2022-09-19 21:28 | CT_ITS ---
EXAM: CT ABDOMEN AND PELVIS WITHOUT INTRAVENOUS CONTRAST CLINICAL INDICATION: abd pain, constipation, vomiting TECHNIQUE: Helically acquired images were obtained of the abdomen and pelvis without intravenous contrast. CTDIvol = ( 6.14 ) mGy, DLP = ( 294.38 ) mGycm This CT exam was performed using one or more of the following dose reduction techniques: automated exposure control, adjustment of the mA and/or kV according to patient size, and/or use of iterative reconstruction technique. COMPARISON: No relevant prior studies available. FINDINGS: LOWER THORAX: Atypical infectious process at the right lower lobe. No cardiomegaly. No significant pericardial effusion. ABDOMEN: LIVER: Unremarkable. Homogeneous. GALLBLADDER AND BILE DUCTS: Unremarkable. No calcified gallstones. No gallbladder distention or wall edema. No intra- or extrahepatic biliary ductal dilation. PANCREAS: Unremarkable. No focal cystic mass. SPLEEN: Unremarkable. Normal size without focal cystic or solid mass. ADRENALS: Unremarkable. No nodules. KIDNEYS AND URETERS: Unremarkable. Normal renal size and position. No hydronephrosis. STOMACH AND BOWEL: Distended small bowel loops containing air-fluid levels are concerning for distal small bowel obstruction. Colon contains stool with appearance suggesting constipation with no evidence of colitis or diverticulitis. PELVIS: APPENDIX: No evidence of acute appendicitis. BLADDER: Unremarkable. REPRODUCTIVE: Unremarkable as visualized. No mass. ABDOMEN and PELVIS: INTRAPERITONEAL SPACE: Unremarkable. No free air or free fluid. No pneumatosis or portal venous gas. BONES/JOINTS: Degenerative changes of the pelvis and spine. Diffuse osteopenia. 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 No suspicious lytic or blastic abnormality. SOFT TISSUES: Diffuse soft tissue edema suggesting anasarca. No discrete abdominal or pelvic wall hernia. VASCULATURE: Unremarkable. Abdominal aorta is non-dilated. LYMPH NODES: Unremarkable. No enlarged lymph nodes. CT/Abdomen/Pelvis without Cont IMPRESSION: Distended small bowel loops containing air-fluid levels are concerning for distal small bowel obstruction. Electronically Signed: Ryan Olivares MD at 22:26 EDT ,
[2022-09-19] MEDS: Morphine 4 MG/ML Syringe IV ×2 (21:44→23:02)
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
[2022-09-19 22:33] VITALS: BP 141/78; PULSE 81; RESP 16; O2SAT 98
[2022-09-19] MEDS: Oxymetazoline 0.05% 1 SPRAY SPRAY.BTL 2 SPRAY NASAL (22:52)
--- NOTE | 2022-09-19 22:55 | RAD_ITS ---
EXAM: XR ABDOMEN, 1 VIEW CLINICAL INDICATION: NG tube placement -- KUB with both diaphragms for NG/OG Verification TECHNIQUE: Frontal supine view of the abdomen/pelvis. COMPARISON: No relevant prior studies available. FINDINGS: Transesophageal catheter identified with side port at or near the GE junction. Tip is near the midportion of the stomach. Incompletely imaged gas-filled upper abdomen. No consolidation. No pleural effusion or pneumothorax. RAD/Abdomen Single View (Portable) IMPRESSION: Transesophageal catheter identified with side port at or near the GE junction. Tip is near the midportion of the stomach. Electronically Signed: Ryan Olivares MD at 23:54 EDT ,
[2022-09-19] MEDS: 0.9% Normal Saline 1,000 ML 100 ML IV (23:03)
[2022-09-20 00:50] VITALS: BP 138/79; PULSE 95; RESP 16; O2SAT 91
--- NOTE | 2022-09-20 01:27 | ED.RN ---
to keep w/c with security for daughter to bean picker
== END 2022-09-20 01:27 | disposition short-term general hospital (02) ==
PROVIDERS: Emergency Provider Emergency Medicine; PCP Family Medicine; Visit Provider Emergency Medicine
DX: K56.609 Unspecified intestinal obstruction, unspecified as to partial versus complete obstruction (principal); G82.20 Paraplegia, unspecified; G37.3 Acute transverse myelitis in demyelinating disease of central nervous system; N31.9 Neuromuscular dysfunction of bladder, unspecified; E87.1 Hypo-osmolality and hyponatremia; N39.0 Urinary tract infection, site not specified; R10.9 Unspecified abdominal pain; Z79.891 Long term (current) use of opiate analgesic; I95.9 Hypotension, unspecified; F32.A Depression, unspecified; F41.9 Anxiety disorder, unspecified; Z99.81 Dependence on supplemental oxygen
CPT/HCPCS: 43752; 74018; 74176; 80053; 83605; 85025; 96361; 96365; 96366; 96375; 96376; 99285; J7030; J2405

== ENCOUNTER 2023-03-23 08:43 | Day surgery (SDC) | payer MEDICARE, OTHER, SELFPAY ==
[2023-03-23 08:58] VITALS: BP 118/93; PULSE 63; RESP 18; TEMP 35.8; O2SAT 98; BMI 18.0
[2023-03-23] MEDS: Lactated Ringers 1,000 ML 15 ML IV (09:11)
--- NOTE | 2023-03-23 09:30 | RAD_ITS ---
PROCEDURE: Bilateral L4 and S1 medial branch nerve block DATE OF EXAMINATION: March 23, 2023. INDICATION: Female, 72 years old. Chronic low back pain. FLUOROSCOPY TIME (if supplied): (17 seconds) minutes/seconds. 2.25 mGy. 6 images were submitted. RAD/L/S Spine w Bend Min 6 Vw IMPRESSION: Intraoperative imaging provided for bilateral L4 and S1 medial branch nerve block. Electronically Signed: Forest Fajardo MD at 10:50 EST ,
[2023-03-23] MEDS: Bupivacaine 0.25% 30 ML Vial (09:45)
[2023-03-23] MEDS: Lidocaine 1% (5 ml sdv) 5 ML Vial (09:45)
[2023-03-23] MEDS: MethylPREDNISolone Acetate 80 MG/ML Vial (09:45)
--- NOTE | 2023-03-23 09:52 | PCM.OPRPT ---
Report of Operation Date of Procedure: 03/23/23 Description of Surgical Findings:: Preoperative diagnosis: Lumbosacral spondylosis, lumbosacral degenerative disc disease, lumbar facet arthropathy Postoperative diagnosis : Lumbosacral spondylosis, lumbosacral degenerative disc disease, lumbar facet arthropathy PROCEDURE PERFORMED: Bilateral lumbar medial branch block at L4, L5, and S1. ANESTHESIA: local. BLOOD LOSS: Minimal. COMPLICATIONS: None. DESCRIPTION OF PROCEDURE: History and physical of today was reviewed. Risks and benefits of the procedure were explained. The patient understood and agreed to proceed. Informed consent was obtained. IV inserted per routine protocol. The patient was taken to the operating room and placed in the prone position with a pillow positioned underneath the abdomen. The lower back area was prepped and draped in a sterile fashion using iodine x3. Under fluoroscopy guidance on AP view, the L4 through S1 vertebral bodies were visualized. The skin and subcutaneous tissue was anesthetized with approximately 5 mL of 1% lidocaine using a 25-gauge regular needle. Under direct visualization with fluoroscopy, at approximately 25-degree angle, starting on the left L4, ending on the right L4, passing through the L5 and S1 bilaterally, using a 22-gauge 3-1/2-inch spinal needle, the needle was advanced via the skin. The tip of the needle was maneuvered and directed towards the superior medial gutter of the transverse process at the vicinity of the medial branch. Once tip of the needle was in contact with the bone, the needle was pulled approximately 2 mm off the bone. After negative aspiration for blood or CSF and confirmation on AP, oblique as well as lateral view, a total of 12 mL of preservative-free 0.25% Marcaine with 80 mg of Depo-Medrol was injected in divided doses between those six levels. The needles were then removed intact. The patient experienced no sign or symptoms of intrathecal or intravascular injection. The patient experienced no paresthesia. The procedure was completed without any apparent difficulty or any complications. The patient appeared to tolerate it well. ASSESSMENT AND PLAN: This is a 72-year-old female with lumbosacral spondylosis, lumbosacral degenerative disc disease, lumbar facet arthropathy status post bilateral lumbar medial branch block at L4-5, L5-S1, patient will continue her current medications, patient will follow up in approximately 2 weeks for reevaluation.
[2023-03-23 10:13] VITALS: BP 118/93; BP 131/64; PULSE 60; RESP 16; TEMP 36.6; O2SAT 100
== END 2023-03-23 10:45 | disposition home or self-care (01) ==
LOC: SDC 08:45 → AC 08:47
PROVIDERS: PCP Family Medicine; Referring Provider Anesthesiology Pain Medicine; Visit Provider Anesthesiology Pain Medicine
PROC: 3E0S3BZ Introduction of Anesthetic Agent into Epidural Space, Percutaneous Approach (ICD-10-PCS; CPT 62322; principal; 2023-03-23 10:05)
DX: M47.816 Spondylosis without myelopathy or radiculopathy, lumbar region (principal); M46.96 Unspecified inflammatory spondylopathy, lumbar region; M51.37 Other intervertebral disc degeneration, lumbosacral region; M47.817 Spondylosis without myelopathy or radiculopathy, lumbosacral region
CPT/HCPCS: 64493; 64494; 01992; 64483; 72114; J7120

== ENCOUNTER → 2023-05-29 | Outpatient (CLI) | payer MEDICARE, OTHER, SELFPAY ==
--- NOTE | 2023-05-29 12:07 | BI_ITS ---
MAMMOGRAPHY - BILATERAL SCREENING REASON FOR EXAM: Female, 73 years old. Routine annual screening examination. PERTINENT HISTORY: Non-contributory. TECHNIQUE: Digital bilateral breast jd (3D mammographic acquisition) in the CC and MLO projections. 2-D mediolateral oblique (MLO) and craniocaudad (CC) views of both breasts were obtained. CAD: Full Field Digital Mammography with Computer Added Detection was performed. COMPARISON: Comparison is made with prior examination dated and May 21, 2021. FINDINGS: Breast Composition: There are scattered areas of fibroglandular density. There are no dominant masses or suspicious calcifications. No other significant abnormalities are identified. There has been no significant change since the prior study. BI/SCRN MAMM (CAD)W/JD BILAT IMPRESSION: Stable bilateral screening mammogram. Yearly follow-up mammogram recommended. (A) ASSESSMENT CATEGORY: BIRADS Category 1: Negative. A letter regarding these results will be sent to the patient by the facility within 30 days. Approximately 10% of breast cancers are not detected by mammography. A normal mammogram should not delay biopsy of a clinically suspicious abnormality. [id number] Electronically Signed: Forest Fajardo MD at 12:57 EST ,
--- OUTSIDE RECORDS SUMMARY | 2023-05-29 12:26 | XMS RPT_ITS | CCD ---
Author Name Unknown Address [address] [place] [address] Organization [facility] Care Team Providers Care Herbicide Sprayer Name Role Phone Maryanne Valencia Unavailable Unavailable Primary Care Provider Unavailabl e Kiran DO, Cara F Primary Care Provider [phone] Kiran DO, Cara F Primary Care Provider SYSTEM, PROVIDER NOT IN Attending Unavaila ble SYSTEM, PROVIDER NOT IN Referring Unavaila ble KIRAN, CARA F Primary Care Unavailable SYSTEM, PROVIDER NOT IN Attending Unavaila ble SYSTEM, PROVIDER NOT IN Referring Unavaila ble KIRAN, CARA F Primary Care Unavailable SYSTEM, PROVIDER NOT IN Attending Unavaila ble SYSTEM, PROVIDER NOT IN Referring Unavaila ble KIRAN, CARA F Primary Care Unavailable GI FRANCES Attending Unavaila ble GI FRANCES Referring Unavaila ble KIRAN, CARA F Primary Care Unavailable KIRAN, CARA F Primary Care Unavailable GI FRANCES Attending Unavaila ble GI FRANCES Referring Unavaila ble KIRAN, CARA F Primary Care Unavailable GI FRANCES Admitting Unavaila ble GI FRANCES Referring Unavaila ble KIRAN, CARA F Primary Care Unavailable GI FRANCES Attending Unavaila ble GI FRANCES Admitting Unavaila ble KIRAN, CARA F Referring Unavailable KIRAN, CARA F Admitting Unavailable ELVIN, JAKAI Attending Unavailable KIRAN, CARA F Primary Care Unavailable KIRAN, CARA F Primary Care Unavailable ELVIN, JAKAI Admitting Unavailable ELVIN, JAKAI Attending Unavailable KIRAN, CARA F Referring Unavailable CARA ARCE Primary Care Unavailable KIMBERLY JOHN Attending Unavailable DANICA KRUGER Admitting Unavailable BUCKY POLANCO Referring Unavailable CARA ARCE Primary Care Unavailable ERNIE RAYMOND Attending Unavailable Allergies Allergy Classification Reported Allergen(s) Allergy Type Date of Onset Reaction(s) Facility ziconotide (6 sources) ziconotide Drug Allergy 09-10-2020 [facility] (7 sources) ziconotide; Translations: [ZICONOTIDE] Drug Allergy 09-10-2020 [facility] Medications Current Medications Medication Drug Class(es) Dates Sig (Normalized) Sig (Original) amitriptyline hydrochloride 25 mg oral tablet (15 sources) Tricyclic Antidepressant Start: 01-24-2021 End: 01-24-2022 take 1 tablet by mouth once daily amitriptyline (ELAVIL) 25 MG tablet Indications: Neuropathic pain Take 1 (one) tablet (25 mg total) by mouth nightly . 30 tablet 11 01/24/2021 01/24/2022 Active Completed/Discontinued Medications Medication Drug Class(es) Dates Sig (Normalized) Sig (Original) baclofen 20 mg oral tablet (2 sources) gamma-Aminobutyric Acid-ergic Agonist take 1 tablet by mouth once daily Baclofen 20 MG Oral Tablet 1 daily (20 MG) Active pain pump (2 sources) pain pump diloti d, marcaine, Active Comments: baclofen as well Problems Active Problems Problem Classification Problem Date Documented Date Episodic/Chronic Complications of surgical procedures or medical care (1 source) Disruption of wound, unspecified, initial encounter; Translations: [Wound dehiscence] Onset: 10-10-2022 Episodic Immunity disorders (1 source) Disorder of immune function; Translations: [Other specified disorders involving the immune mechanism, not elsewhere classified] Chronic Intestinal obstruction without hernia (1 source) Unspecified intestinal obstruction, unspecified as to partial versus complete obstruction; Translations: [SBO (small bowel obstruction) ([facility])] Onset: 09-28-2022 Episodic Nutritional deficiencies (2 sources) Vitamin D deficiency; Translations: [Vitamin D deficiency, unspecified] Chronic Other aftercare (1 source) Encounter for follow-up examination after completed treatment for conditions other than malignant neoplasm; Translations: [Postop check] Onset: 10-10-2022 Episodic Other connective tissue disease (7 sources) Neuropathic pain; Translations: [Neuralgia and neuritis, unspecified] Episodic Other nervous system disorders (6 sources) Transverse myelopathy syndrome; 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] 03-16-2020 Episodic Paralysis (2 sources) Paraplegia; Translations: [Paraplegia, unspecified] Onset: 12-29-2001 Chronic Past or Other Problems Problem Classification Problem Date Documented Date Episodic/Chronic Other nervous system disorders (1 source) 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; Translations: [Transverse myelitis (HCC)] Onset: 12-07-2009 Episodic Unclassified (2 sources) Transverse myelitis Results Test Name Value Interpretation Reference Range Facil ity Vital Signs Date Time Vital Sign Value Performing Clinician Facility 10-04-2020 13:15-0400 Body height 160 cm [facility] 10-04-2020 13:15-0400 Body mass index (BMI) [Ratio] 19.54 kg/m2 [facility] 10-04-2020 13:15-0400 Body weight 50.03 kg [facility] 10-04-2020 13:15-0400 Diastolic blood pressure 69 mm[Hg] [facility] 10-04-2020 13:15-0400 Heart rate 69 /min [facility] 10-04-2020 13:15-0400 Systolic blood pressure 147 mm[Hg] [facility] 09-10-2020 11:02-0400 Body height 160 cm [facility] 09-10-2020 11:02-0400 Body mass index (BMI) [Ratio] 19.89 kg/m2 [facility] 09-10-2020 11:02-0400 Body weight 50.94 kg [facility] 09-10-2020 11:02-0400 Diastolic blood pressure 74 mm[Hg] [facility] 09-10-2020 11:02-0400 Heart rate 62 /min [facility] 09-10-2020 11:02-0400 Systolic blood pressure 129 mm[Hg] [facility] 03-16-2020 14:10-0500 Body Temperature 97.1 [degF] Maryanne Valencia [facility] Work Phone: Encounters Encounter Date Encounter Type Care Provider Facility Start: 10-10-2022 End: 10-10-2022 ambulatory CARA ARCE Facility[facility] Start: 09-20-2022 End: 09-28-2022 Evaluation and management of inpatient DANICA KRUGER Facility:[facility] Start: 04-08-2021 End: 04-08-2021 ambulatory CARA BECK [facility] Start: 01-23-2021 Refill Nidia Finney And zulma GARZA [facility] Procedures Date Procedure Procedure Detail Performing Clinician Start: 10-04-2020 Mri spinal canal cer vical w/o & w/contr matrl Analilia Andrade Elvin DO Start: 09-10-2020 Computerized tomogra phy, limited studies External Transcribed Start: 09-10-2020 Magnetic resonance imaging External Transcribed Start: 09-10-2020 Radiographic imaging procedure External Transcribed Start: 09-13-2018 Mammography Provider S ystem Start: 09-24-2017 Mammography Gi Frances MD Work Phone: Plan of Treatment Date Care Activity Detail Author Start: 04-08-2021 End: 04-08-2021 Patient encounter procedure [facility] Start: 01-26-2021 COVID-19 Vaccine (3 - Booster for Pfizer series) COVID-19 Vaccine (3 - Booster for Pfizer series) [facility] Start: 01-02-2021 Influenza vaccination Sequential Influenza Vaccine (#1) [facility] Start: 10-11-2020 End: 09-10-2021 MRI of cervical spine MR Cervical Spine With And Without Contrast Imaging Routine Transverse myelitis (HCC) Expected: 10/11/2020, Expires: 09/10/2021 [facility] Payers Date Payer Category Payer Unknown 2019 Unknown [id number] 2019 Unknown [id number] 2003 Medicare [id number] 2003 Medicare MEDICARE MEDICAR E PART A & B [id number] 2003-Present [phone] [id number] [place] [address] [place] [address] [id number] 2003 Medicare [id number] 1950 Unknown [id number] 1950 Unknown [id number] 1950 Unknown [id number] 1950 Unknown [id number] 1950 Unknown [id number] 1950 Unknown [id number] 1950 Unknown [id number] 1950 Unknown [id number] 1950 Unknown [id number] Social History Date Type Detail Facility Tobacco smoking stat [facility] Unknown if ever smoked [facility] Start: 1950 Sex Assigned At Not on file [facility] Exposure to SARS-CoV -2 (event) Not sure [facility] Start: 09-13-2020 End: 09-23-2020 Tobacco smoking status TNIS Never smoker [facility] Start: 09-13-2020 End: 09-23-2020 Tobacco use and exposure Never used [facility] Work Phone: Start: 09-23-2020 End: 10-20-2020 Alcohol intake Ex-drinker (finding) [facility] Start: 09-13-2020 History SDOH Alcohol Frequency 1 [facility] Start: 09-13-2020 History SDOH Alcohol Std Drinks 99 [facility] Medical Equipment Procedure Code Equipment Code Equipment Origin al Text Equipment Identifier Dates Synchromed Ii Pump [id number] Start : 07-14-2014 Clinical Notes 09-10-2020 to 10-10-2022 Telephone Encounter - Suma Fishman RN - 03/19/2021 9:35 AM ESTTelephone Encounter - Gi Frances MD - 03/18/2021 5:08 PM ESTPatient InstructionsPatient Instructions Note Date & Type Note Facility 10-10-2022 Note HNO ID: [id number] Author: Kimberly John APRN.LINE HAUL OWNER OPERATOR Service: ? Author Type: Nurse Practitioner Type: Progress Notes Filed: 10/10/2022 4:25 PM Note Text: Aleena Andrea is a 72 year old female who is here for postoperative visit. Patient is s/p laparoscopic augmentation cystoplasty with ileoileal catheterizable stoma at the umbilicus for neurogenic bladder in 2001. Patient was seen in the ED for c/o abdominal pain and vomiting on 09/20/22, and it was found on imaging that she has a SBO. She underwent an exploratory laparotomy with lysis of adhesions on 09/23/[address] Kevin. She was dc'ed on 09/28/22 with midline zenia to be removed after 10 days. Patient reports that she has been doing rehab at a facility and working on building her strength back to be able to transfer out of her wheelchair. She also reports that a couple days after leaving the hospital, she was attempting to self-cath her bladder, but accidentally inserted her catheter into her incision causing it to open and bleed for a couple days. She reports that the incision around the umbilical area had lost some zenia and come apart. The wound has seen her at the facility and has written orders for calcium alginate dressings. She reports red drainage from the incision is still occurring and the bandage needs changed 3 times a day. She also reports she is taking colace and Mirilax, and is having loose stool/diarrhea at this point. Denies any blood in the stool. Also states that she had two episodes of nausea, one being last night. Denies any vomiting. She has Phenergan PRN. Reports a good appetite. Denies any purulent drainage. Denies any fevers, chills, CP, SOB. PAST MEDICAL HISTORY Diagnosis Date Acute gastritis without mention of hemorrhage Anemia, unspecified CAD (coronary artery disease) CHF (congestive heart failure) (HCC) Chronic pain Depression Dysphagia Internal hemorrhoids without mention of complication Migraine, unspecified, without mention of intractable migraine without mention of status migrainosus Mononeuritis of unspecified site 07/02 Neuropathy Nonorganic sleep disorder, unspecified Nonspecific abnormal finding in stool contents Osteoporosis, unspecified Other causes of myelitis Other general symptoms(780.99) Paraplegia (HCC) PMH - PAST MEDICAL HISTORY OF transverse mylitis pos. spasticity Respiratory failure (HCC) Rosacea Transverse myelitis (HCC) Unspecified cause of encephalitis, myelitis, and encephalomyelitis Unspecified constipation Unspecified constipation Unspecified urinary incontinence 07/03 Incontinence PAST SURGICAL HISTORY Procedure Laterality Date COLONOSCOPY FLX DX W/COLLJ SPEC WHEN PFRMD 05/31/08 COLONOSCOPY FLX DX W/COLLJ SPEC WHEN PFRMD 06/13/2013 Colonoscopy CYSTOSTOMY CYSTOTOMY W/DRAINAGE 07/03 Cystostomy, suprapubic EGD TRANSORAL BIOPSY SINGLE/MULTIPLE 05/31/08 INTRATHECAL PAIN PUMP in abdomen was replaced in july 2014 PAST SURGICAL HISTORY OF replaced pain pump with new one PAST SURGICAL HISTORY OF 12/17/09 Peg tube removal no EGD done. SIGMOIDOSCOPY FLX DX W/COLLJ SPEC BR/WA IF PFRMD 12/01/13 Sigmoidoscopy, flexible TONSILLECTOMY PRIMARY/SECONDARY Tobacco Use: Low Risk Smoking Tobacco Use: Never Smokeless Tobacco Use: Never Passive Exposure: Not on file Alcohol Use: Not on file Drug Use: No ALLERGIES Allergen Reactions Ziconotide Other: See Comments Current Outpatient Medications Medication Sig oxycodone HCl (OXYCODONE ORAL) Take 15 mg by mouth four times daily. bisacodyl EC (DULCOLAX) 5 mg EC tablet Take 2 tablets by mouth once daily as needed. DULoxetine (CYMBALTA) 30 mg capsule Take 90 mg by mouth once daily. acetaminophen (TYLENOL) 325 mg tablet Take 650 mg by mouth every 6 hours as needed (with oxycodone). baclofen (LIORESAL) 10 mg tablet Take 10 mg by mouth twice daily. triamcinolone (KENALOG IN ORABASE) 0.1 % paste gabapentin (NEURONTIN) 800 mg tablet Take 800 mg by mouth four times daily. cloNIDine HCl (CATAPRES) 0.2 mg tablet Take 0.2 mg by mouth daily at bedtime. (No Medication Selected) by INTRATHECAL route continuous. docusate sodium (COLACE) 100 mg capsule Take 100 mg by mouth twice daily as needed for constipation. POLYETHYLENE GLYCOL 3350 (MIRALAX ORAL) Take by mouth. traZODone 100 mg tablet Take 100 mg by mouth daily at bedtime. DENOSUMAB (PROLIA SUBCUTANEOUS) Inject subcutaneously. One injection every 6 months. NAPROXEN ORAL Take 375 mg by mouth twice daily. WHEELCHAIR MISC STANDING WHEELCHAIR amitriptyline (ELAVIL) 50 mg tablet (Patient not taking: Reported on 10/10/2022) tiZANidine (ZANAFLEX) 2 mg tablet Take 2 mg by mouth every 6 hours as needed. (Patient not taking: Reported on 10/10/2022) No current facility-administered medications for this visit. OPERATIVE NOTE: Patient was brought into the operating room, where a huddle time-out procedure, preoperative antibioti (more content not included)... [facility] 09-28-2022 Note HNO ID: [id number] Author: Ester Decker RN Service: Care Management Author Type: Registered Nurse Type: Care Mgt Progress Note Filed: 09/28/2022 11:32 AM Note Text: CARE MANAGEMENT DISCHARGE NOTE SERVICE DATE: September 28, 2022 SERVICE TIME: 11:32 AM Admission Date: 09/20/2022 LOS: 8 days Discharge Arrangement Discharge Arrangement: Nursing Home Facility Was an expedited discharge program used?: No Services Arranged Medical Services: Other: See Comment (SNF) Provider Name: [facility] Caregiver Assessment Caregiver is ready, willing and able to meet the patient's needs as recommended by the inter-professional team: Yes Name of Caregiver: SNF Transportation Arrangements Transportation Arrangements: Ambulance Transportation Agency and Phone #:: [facility] ( [facility] ) [phone] / [phone] Date of Trip: 09/28/22 Time of Trip: 1700 Type of Service: BLS Non-emergency Is Patient Medicaid Pending?: No Was transportation financial coverage discussed with family?: Patient Nurse Head Location: [facility]: [facility] Financial Care Management Responsibility: None Handoff Communication: Handoff to: Primary Care Physician;Other Caregiver Primary Care Physician Name/Phone: Dr. Cara Arce [phone] Other Caregiver Name/Phone: RN to call report to nurse at facility Additional Information: Pt will dc to [facility] today. RN, pt, and SNF are aware of 1700 brain picker time today. SIGNATURE: Ester Decker RN PATIENT NAME: Aleena Andrea DATE: September 28, 2022 TIME: 11:32 AM CONTACT #: [phone] [facility] 09-28-2022 Note HNO ID: [id number] Author: Ester Decker RN Service: Care Management Author Type: Registered Nurse Type: Care Mgt Progress Note Filed: 09/28/2022 11:31 AM Note Text: CARE MANAGEMENT PROGRESS NOTE SERVICE DATE: 09/28/2022 SERVICE TIME: 11:30 AM LOS: 8 days IMM Follow Up Copy Given: Yes Copy given to:: Patient Method: In Person The patient gave verbal understanding of IMM reminder. SIGNATURE: Ester Decker RN PATIENT NAME: Aleena Andrea DATE: September 28, 2022 TIME: 11:30 AM PAGER/CONTACT #: [phone] [facility] 09-28-2022 Note HNO ID: [id number] Author: Beth Hunter, UNION CONTRACT REPRESENTATIVE.AUTOMOTIVE MACHINIST APPRENTICE Service: General Surgery Author Type: Nurse Specialist Type: Progress Notes Filed: 09/28/2022 3:48 PM Note Text: Emergency General Surgery Progress Note SERVICE DATE: September 28, 2022 SERVICE TIME: 07 Emergency General Surgery Service Pager: For questions or concerns Mon-Fri 6a-5p please page [phone]. After 5pm and on Weekends and Holidays, please page [phone] if in ICU or [phone] if on RNF. SUBJECTIVE: POD 5: Pt sts feeling well today. Tolerating advance to GI diet with no c/o N/V. Passing flatus, had BM yesterday - discussed maintaining bowel regimen. Midline incision with zenia c/d/I. Voiding. Discussed plan for DC to SNF today. Tolerating diet DIET GASTRO INTESTINAL Nausea No Emesis No Flatus No Bowel movement No Pain Controlled Yes Ambulating No OBJECTIVE: Vitals: Temp (24hrs), Av.6 ?C (97.8 ?F), Min:36.4 ?C (97.5 ?F), Max:36.7 ?C (98.1 ?F) BP 117/67 Pulse 88 Temp 36.7 ?C (98.1 ?F) (Oral) Resp 18 Ht 160 cm (5' 3 ) Wt 53 kg (116 lb 13.5 oz) LMP 08/16/2002 SpO2 96% BMI 20.70 kg/m? O2 Therapy: Room Air IANDO: Date 09/27/22 07 - 09/28/22 0659 09/28/22 07 - 09/29/22 0659 Shift 1206-1758 0939-4692 3292-1995 24 Hour Total 4281-2535 5168-8016 0542-7590 24 Hour Total INTAKE PO 240 240 PO 240 240 Supplements (mL) 0 0 Shift Total 240 240 OUTPUT Urine 1850 1100 1200 4150 800 800 Void (ml) 1850 1100 2950 Straight cath (ml) 1200 1200 800 800 # of BMs Number of BMs 0 x 0 x Shift Total 1850 1100 1200 4150 800 800 Weight (kg) 48.5 48.5 53 53 53 53 53 53 MEDICATIONS Current Facility-Administered Medications Medication Dose Route Frequency oxyCODONE 15 mg immediate release tablet (ROXICODONE) 15 mg ORAL q 4 H PRN polyethylene glycol 3350 17 g packet 17 g ORAL DAILY prochlorperazine 10 mg injection (COMPAZINE) 10 mg INTRAVENOUS q 6 H PRN HYDROmorphone (PWD) 32 mg, baclofen 100 % 2,000 mcg, bupivacaine 30 mg patient's own pump - MAR placeholder INTRATHECAL CONTINUOUS gabapentin 800 mg cap(s) (NEURONTIN) 800 mg ORAL q 6 H cloNIDine HCl 0.2 mg tab(s) (CATAPRES) 0.2 mg ORAL AT BEDTIME traZODone 100 mg tab(s) (DESYREL) 100 mg ORAL AT BEDTIME DULoxetine 90 mg cap(s) (CYMBALTA) 90 mg ORAL DAILY lactated ringers iv infusion 125 mL/hr INTRAVENOUS CONTINUOUS ondansetron 4 mg tab(s) (ZOFRAN) 4 mg ORAL q 6 H PRN Or ondansetron (PF) 4 mg injection (ZOFRAN) 4 mg INTRAVENOUS q 6 H PRN enoxaparin 40 mg injection (LOVENOX) 40 mg SUBCUTANEOUS DAILY NaCl 0.9% iv flush bag 20 mL INTRAVENOUS PRN acetaminophen 975 mg tab(s) (TYLENOL) 975 mg ORAL q 8 H Labs: Recent Labs 09/28/22 0116 09/27/22 0228 09/26/22 0411 09/25/22 1840 NA 137 135* < > -- K 4.3 4.2 < > 4.3 CHLOR 101 100 < > -- CO2 31* 29 < > -- BUN 5* 4* < > -- CREAT 0.43* 0.33* < > -- GLUC 110* 92 < > -- ANION 5* 6* < > -- CA 8.3* 7.7* < > -- MG -- 1.4* -- -- P -- 2.5* -- 4.3 WBC 4.49 3.27* < > -- HB 9.4* 9.1* < > -- HCT 28.4* 27.1* < > -- PLT 285 262 < > -- < > = values in this interval not displayed. Physical Exam: GENERAL: No distress, Alert NEURO: AANDOx3, CN II-XII grossly intact HEENT: normocephalic, atraumatic LUNGS: Unlabored breathing, equal chest rise bilaterally CARDIAC: Regular rate, warm and well perfused distal extremities ABDOMEN: Soft, mild TTP, minimally distended. Midline incision C/D/I with zenia EXTREMITIES: GARCIA, No deformities, No edema SKIN: Skin color, texture, turgor normal, No rashes or lesions ASSESSMENT AND PLAN: Assessment Active Hospital Problems Diagnosis Date Noted SBO (small bowel obstruction) ([facility]) 09/20/2022 Pressure injury of coccygeal region, stage 2 ([facility]) 09/22/2022 Pressure injury of perianal region, stage 2 ([facility]) 09/22/2022 Paralysis ([facility]) 09/20/2022 Encounter for pain management 09/20/2022 Moderate protein-calorie malnutrition (HCC) 09/20/2022 Assessment: 72 year old female with PMH of CAD, CHF, depression, hemorrhoids, osteoporosis, constipation, intrathecal pain pump, 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, s/p laparoscopic augmentation cystoplasty with ileoileal catheterizable stoma at the umbilicus for neurogenic bladder presenting with SBO; s/p Exploratory laparotomy, ANDREW on 09/23 Hospital Course/Operations/Procedures: 09/23/2022 Procedure(s): EXPLORATORY LAPAROTOMY ADULT, LYSIS OF ADHESIONS Plan: SBO S/p Ex lap, ANDREW - Pain/nausea control - Tolerating GIS diet - + bowel function - Miralax, sts Dulcolax po works at home (added) - Monitor electrolytes - Hyponatremia/calcemia/magnesia/ph osphatemia - replaced po - VTE ppx: Lovenox, IPCs, Progressive mobility protocol UTI - On Bactrim DS x 7 days total (complete) - Pt continues to straight cath via umbilical stoma Acute on chronic pain - Pain Management following, appreciate recs - Cont home gabapentin, cymbalta Dispo Plan: - PT/OT recs f (more content not included)... [facility] 09-27-2022 Note HNO ID: [id number] Author: Kamilah Swanson MD Service: Pain Management Author Type: Physician Type: Progress Notes Filed: 09/27/2022 1:47 PM Note Text: Name: ALEENA ANDREA Age: [age] year old PAIN MANAGEMENT: History of paraplegia from transverse myelitis, chronic pain syndrome, intrathecal pump, SBO Pain Description: Patient sitting up; eating breakfast. Feels much better. Left with chronic nerve pain in her spine and legs from transverse myelitis. Much less abdominal pain Interval HPI: No acute events overnight. Patient had BM yesterday; abdominal pain subsiding 09/24 ex lap, ANDREW 24H Comfort Meds: Tylenol 975 mg x 3 Cymbalta 90 mg daily Gabapentin 800 mg x 4 Dilaudid 1 mg IV discontinued Oxycodone 15 mg x 3 Zofran 4 mg po x 2 Trazodone 100 mg x 1 Subjective HPI: 72-year-old female with history of transverse myelitis with subsequent paralysis (July 2000) s/p intrathecal pain pump, neurogenic bladder s/p lap augmentation cystoplasty with ileoileal catheterizable stoma at umbilicus, CAD, CHF, osteoporosis, depression presented 09/20 with nausea, emesis and abdominal pain. AP CT concerning for SBO and constipation. NG tube placed for decompression. Gastrografin contrast study pending. Patient remains NPO/IVF, NGT to [facility]. Patient noted to have mild hypotension, UTI. Home pain regimen managed by Que PEARCE includes intrathecal pump (Dilaudid, baclofen) oxycodone 15 mg up to 4 tabs daily, Cymbalta 90 mg daily, gabapentin 800 mg 4 times daily. She lives with her daughter. She has not had an intrathecal pump for about 20 years; it was replaced about 3 years ago. She states it is filled every month and is due to be refilled in 3 weeks. [facility] Review: 61 prescriptions from 5 prescribers most recent: 09/05 baclofen Powder 08/07, 09/05 oxycodone 15 mg #120 (30-day supply) 05/31, 08/29 gabapentin 800 mg #360 (90-day supply) 08/08 Dilaudid powder Current Facility-Administered Medications Medication Dose Route Frequency Provider Last Rate Last Admin oxyCODONE 15 mg immediate release tablet (ROXICODONE) 15 mg ORAL q 4 H PRN Kamilah Swanson MD 15 mg at 09/27/22 1254 polyethylene glycol 3350 17 g packet 17 g ORAL DAILY Emely Tara, DO 17 g at 09/27/22 0836 prochlorperazine 10 mg injection (COMPAZINE) 10 mg INTRAVENOUS q 6 H PRN Nabila Chowdhury APRN.LINE HAUL OWNER OPERATOR 10 mg at 09/26/22 0654 HYDROmorphone (PWD) 32 mg, baclofen 100 % 2,000 mcg, bupivacaine 30 mg patient's own pump - [facility] placeholder INTRATHECAL CONTINUOUS Emeyl Tara, DO New Bag at 09/22/22 1100 gabapentin 800 mg cap(s) (NEURONTIN) 800 mg ORAL q 6 H Emely Tara, DO 800 mg at 09/27/22 1143 sulfamethoxazole-trimethoprim 800-160 mg 1 tablet (BACTRIM DS) 1 tablet ORAL q 12 H Emely Tara, DO 1 tablet at 09/27/22 0836 cloNIDine HCl 0.2 mg tab(s) (CATAPRES) 0.2 mg ORAL AT BEDTIME Emelytracy Masonart, DO 0.2 mg at 09/26/22 210 traZODone 100 mg tab(s) (DESYREL) 100 mg ORAL AT BEDTIME Emely Tara, DO 100 mg at 09/26/22 2107 DULoxetine 90 mg cap(s) (CYMBALTA) 90 mg ORAL DAILY [facility] Tara, DO 90 mg at 09/27/22 0836 lactated ringers iv infusion 125 mL/hr INTRAVENOUS CONTINUOUS [facility] Tara, DO 125 mL/hr at 09/27/22 1147 125 mL/hr at 09/27/22 1147 ondansetron 4 mg tab(s) (ZOFRAN) 4 mg ORAL q 6 H PRN Emely Tara, DO 4 mg at 09/24/22 1207 Or ondansetron (PF) 4 mg injection (ZOFRAN) 4 mg INTRAVENOUS q 6 H PRN Emely Tara, DO 4 mg at 09/27/22 0221 enoxaparin 40 mg injection (LOVENOX) 40 mg SUBCUTANEOUS DAILY [facility], DO 40 mg at 09/27/22 0837 NaCl 0.9% iv flush bag 20 mL INTRAVENOUS PRN [facility] Tara, DO acetaminophen 975 mg tab(s) (TYLENOL) 975 mg ORAL q 8 [facility] mg at 09/27/22 1254 acetaminophen (TYLENOL) 325 mg tablet, Take 650 mg by mouth every 6 hours as needed (with oxycodone)., Disp: , Rfl: gabapentin (NEURONTIN) 800 mg tablet, Take 800 mg by mouth four times daily., Disp: , Rfl: cloNIDine HCl (CATAPRES) 0.2 mg tablet, Take 0.2 mg by mouth daily at bedtime., Disp: , Rfl: tiZANidine (ZANAFLEX) 2 mg tablet, Take 2 mg by mouth every 6 hours as needed., Disp: , Rfl: docusate sodium (COLACE) 100 mg capsule, Take 100 mg by mouth twice daily as needed for constipation., Disp: , Rfl: POLYETHYLENE GLYCOL 3350 (MIRALAX ORAL), Take by mouth., Disp: , Rfl: traZODone 100 mg tablet, Take 100 mg by mouth daily at bedtime., Disp: , Rfl: DENOSUMAB (PROLIA SUBCUTANEOUS), Inject subcutaneously. One injection every 6 months., Disp: , Rfl: , 04/03/2022 NAPROXEN ORAL, Take 375 mg by mouth twice daily., Disp: , Rfl: DULoxetine (CYMBALTA) 30 mg capsule, Take 90 mg by mouth once daily., Disp: , Rfl: baclofen (LIORESAL) 10 mg tablet, Take 10 mg by mouth twice daily., Disp: , Rfl: 0 amitriptyline (ELAVIL) 50 mg tablet, , Disp: , Rfl: triamcinolone (KENALOG IN ORABASE) 0.1 % paste, , Disp: , Rfl: (No Medication Selected), by INTRATHECA (more content not included)... [facility] 09-27-2022 Note HNO ID: [id number] Author: Beth Hunter APRN.AUTOMOTIVE MACHINIST APPRENTICE Service: General Surgery Author Type: Nurse Specialist Type: Progress Notes Filed: 09/27/2022 3:06 PM Note Text: Emergency General Surgery Progress Note SERVICE DATE: September 27, 2022 SERVICE TIME: 744 Emergency General Surgery Service Pager: For questions or concerns Mon-Fri 6a-5p please page [phone]. After 5pm and on Weekends and Holidays, please page [phone] if in ICU or [phone] if on RNF. SUBJECTIVE: POD 4: Pt sts feeling well today. Tolerating CLD with no c/o N/V. Passing flatus, had BM overnight. Midline incision with zenia c/d/I. Voiding. Discussed plan for advancing diet and DC to SNF. Tolerating diet DIET GASTRO INTESTINAL Nausea Yes Emesis No Flatus No Bowel movement No Pain Controlled Yes Ambulating No OBJECTIVE: Vitals: Temp (24hrs), Av.1 ?C (98.8 ?F), Min:36.8 ?C (98.2 ?F), Max:37.8 ?C (100 ?F) BP 119/71 Pulse 90 Temp 37.8 ?C (100 ?F) (Oral) Resp 16 Ht 160 cm (5' 3 ) Wt 48.5 kg (106 lb 14.8 oz) LMP 08/16/2002 SpO2 93% BMI 18.94 kg/m? O2 Therapy: Room Air IANDO: Date 09/26/22699 - 09/27/22 0659 09/27/22699 - 09/28/22 0659 Shift 7445-5417 1879-2172 6074-4911 24 Hour Total 3283-4730 4230-7130 9999-3686 24 Hour Total INTAKE PO 240 240 240 240 PO 240 240 240 240 Supplements (mL) 0 0 0 0 Shift Total 240 240 240 240 OUTPUT Urine 900 502 813 1955 1850 1850 Void (ml) 1850 1850 Straight cath (ml) 900 709 424 3476 # of BMs Number of BMs 1 x 1 x Shift Total 900 373 970 8251 1850 1850 Weight (kg) 48.5 48.5 48.5 48.5 48.5 48.5 48.5 48.5 MEDICATIONS Current Facility-Administered Medications Medication Dose Route Frequency oxyCODONE 15 mg immediate release tablet (ROXICODONE) 15 mg ORAL q 4 H PRN polyethylene glycol 3350 17 g packet 17 g ORAL DAILY prochlorperazine 10 mg injection (COMPAZINE) 10 mg INTRAVENOUS q 6 H PRN HYDROmorphone (PWD) 32 mg, baclofen 100 % 2,000 mcg, bupivacaine 30 mg patient's own pump - MAR placeholder INTRATHECAL CONTINUOUS gabapentin 800 mg cap(s) (NEURONTIN) 800 mg ORAL q 6 H sulfamethoxazole-trimethoprim 800-160 mg 1 tablet (BACTRIM DS) 1 tablet ORAL q 12 H cloNIDine HCl 0.2 mg tab(s) (CATAPRES) 0.2 mg ORAL AT BEDTIME traZODone 100 mg tab(s) (DESYREL) 100 mg ORAL AT BEDTIME DULoxetine 90 mg cap(s) (CYMBALTA) 90 mg ORAL DAILY lactated ringers iv infusion 125 mL/hr INTRAVENOUS CONTINUOUS ondansetron 4 mg tab(s) (ZOFRAN) 4 mg ORAL q 6 H PRN Or ondansetron (PF) 4 mg injection (ZOFRAN) 4 mg INTRAVENOUS q 6 H PRN enoxaparin 40 mg injection (LOVENOX) 40 mg SUBCUTANEOUS DAILY NaCl 0.9% iv flush bag 20 mL INTRAVENOUS PRN acetaminophen 975 mg tab(s) (TYLENOL) 975 mg ORAL q 8 H Labs: Recent Labs 09/27/22 0228 09/26/22 0411 09/25/22 1840 09/25/22 0851 NA 135* 135* -- 137 K 4.2 4.0 4.3 2.9* CHLOR 100 101 -- 102 CO2 29 28 -- 26 BUN 4* 3* -- 4* CREAT 0.33* 0.31* -- 0.34* GLUC 92 107* -- 107* ANION 6* 6* -- 9 CA 7.7* 8.3* -- 7.8* MG 1.4* -- -- 1.5* P 2.5* -- 4.3 0.9* WBC 3.27* 4.60 -- 4.82 HB 9.1* 10.2* -- 10.1* HCT 27.1* 28.9* -- 29.9* PLT 262 274 -- 265 Physical Exam: GENERAL: No distress, Alert NEURO: AANDOx3, CN II-XII grossly intact HEENT: normocephalic, atraumatic LUNGS: Unlabored breathing, equal chest rise bilaterally CARDIAC: Regular rate, warm and well perfused distal extremities ABDOMEN: Soft, mild TTP, minimally distended. Midline incision C/D/I with zenia EXTREMITIES: GARCIA, No deformities, No edema SKIN: Skin color, texture, turgor normal, No rashes or lesions ASSESSMENT AND PLAN: Assessment Active Hospital Problems Diagnosis Date Noted SBO (small bowel obstruction) ([facility]) 09/20/2022 Pressure injury of coccygeal region, stage 2 ([facility]) 09/22/2022 Pressure injury of perianal region, stage 2 ([facility]) 09/22/2022 Paralysis ([facility]) 09/20/2022 Encounter for pain management 09/20/2022 Moderate protein-calorie malnutrition ([facility]) 09/20/2022 Assessment: 72 year old female with PMH of CAD, CHF, depression, hemorrhoids, osteoporosis, constipation, intrathecal pain pump, 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, s/p laparoscopic augmentation cystoplasty with ileoileal catheterizable stoma at the umbilicus for neurogenic bladder presenting with SBO; s/p Exploratory laparotomy, ANDREW on 09/23 Hospital Course/Operations/Procedures: 09/23/2022 Procedure(s): EXPLORATORY LAPAROTOMY ADULT, LYSIS OF ADHESIONS Plan: SBO S/p Ex lap, ANDREW - Pain/nausea control - ADAT to GIS - + bowel function - Miralax - Monitor electrolytes - Hyponatremia/calcemia/magnesia/ph osphatemia - replaced po - VTE ppx: Lovenox, IPCs, Progressive mobility protocol UTI - On Bactrim DS x 7 days total (complete) - Pt continues to straight cath via umbilical stoma Acute on chronic pain - Pain Management following, appreciate recs - Cont home gabapentin, cymbalta Dispo Plan: - PT/OT recs for S (more content not included)... [facility] 09-26-2022 Note HNO ID: [id number] Author: Sheila Delacruz RN Service: Care Management Author Type: Registered Nurse Type: Care Mgt Progress Note Filed: 09/26/2022 1:09 PM Note Text: CARE MANAGEMENT PROGRESS NOTE SERVICE DATE: 09/26/2022 SERVICE TIME: 12:15 PM LOS: 6 days Post-Acute Discharge Planning Patient Goal(s): Increase strength, Be able to go home [place] [facility] [place] Explained: [place] Given: Yes Level of Care Discussed: Nursing Home Facility Discharge Planning Participant(s): Patient Patient/Family Comments: Anticipated # of Days Until Discharge: (to be determined) Transport at Discharge: Transportation Arrangements: Ambulance Needs Prior to Discharge: Needs Prior to Discharge: Discharge Transportation IMM Follow Up Copy Given: Yes Copy given to:: Patient Method: In Person Post-Acute Discharge Plan: Chart reviewed. Awaiting return of bowel function. Patient is on CLD. Met with patient at bedside to confirm DC plans. [facility]. No precert needed. Patient will need an updated COVID test prior to DC and cot transport. SIGNATURE: Sheila Delacruz RN PATIENT NAME: Aleena Andrea DATE: September 26, 2022 TIME: 1:07 PM PAGER/CONTACT #: [phone] [facility] 09-26-2022 Note HNO ID: [id number] Author: Beth Campbell, [employer] CONTRACT REPRESENTATIVE.AUTOMOTIVE MACHINIST APPRENTICE Service: General Surgery Author Type: Nurse Specialist Type: Progress Notes Filed: 09/26/2022 2:48 PM Note Text: Emergency General Surgery Progress Note SERVICE DATE: September 26, 2022 SERVICE TIME: 744 Emergency General Surgery Service Pager: For questions or concerns Mon-Fri 6a-5p please page [phone]. After 5pm and on Weekends and Holidays, please page [phone] if in ICU or [phone] if on RNF. SUBJECTIVE: POD 3: No acute overnight events. Reports some nausea, no emesis. Was able to tolerate diet advancement (720 ml CLD intake). No bowel function Tolerating diet DIET LIQUID Nausea Yes Emesis No Flatus No Bowel movement No Pain Controlled Yes Ambulating No OBJECTIVE: Vitals: Temp (24hrs), Av.9 ?C (98.5 ?F), Min:36.7 ?C (98.1 ?F), Max:37.1 ?C (98.8 ?F) BP 130/73 Pulse 92 Temp 37.1 ?C (98.8 ?F) (Oral) Resp 16 Ht 160 cm (5' 3 ) Wt 48.5 kg (106 lb 14.8 oz) LMP 08/16/2002 SpO2 94% BMI 18.94 kg/m? O2 Therapy: Room Air IANDO: Date 09/25/22699 - 09/26/22 0659 09/26/22699 - 09/27/22 0659 Shift 7917-1683 8991-2391 3209-7717 24 Hour Total 1250-2243 3715-1270 9719-9843 24 Hour Total INTAKE PO 360 360 720 PO 360 360 720 Supplements (mL) 0 0 0 IV 100 1451 1551 Volume (mL) (potassium chloride iv piggyback 20 mEq/100 mL) 100 100 Volume (mL) (lactated ringers iv infusion) 1451 1451 Shift Total 401 454 5694 2271 OUTPUT Urine 850 999 856 6697 Void (ml) 900 900 Straight cath (ml) 075 384 9923 Shift Total 850 568 922 9801 Weight (kg) 48.5 48.5 48.5 48.5 48.5 48.5 48.5 48.5 MEDICATIONS Current Facility-Administered Medications Medication Dose Route Frequency HYDROmorphone (PF) 1 mg injection (DILAUDID) 1 mg INTRAVENOUS q 2 H PRN oxyCODONE 15 mg immediate release tablet (ROXICODONE) 15 mg ORAL q 4 H PRN potassium-sodium phosphates 1 Packet (PHOS-NAK) 1 Packet ORAL PC and HS polyethylene glycol 3350 17 g packet 17 g ORAL DAILY prochlorperazine 10 mg injection (COMPAZINE) 10 mg INTRAVENOUS q 6 H PRN HYDROmorphone (PWD) 32 mg, baclofen 100 % 2,000 mcg, bupivacaine 30 mg patient's own pump - MAR placeholder INTRATHECAL CONTINUOUS gabapentin 800 mg cap(s) (NEURONTIN) 800 mg ORAL q 6 H sulfamethoxazole-trimethoprim 800-160 mg 1 tablet (BACTRIM DS) 1 tablet ORAL q 12 H cloNIDine HCl 0.2 mg tab(s) (CATAPRES) 0.2 mg ORAL AT BEDTIME traZODone 100 mg tab(s) (DESYREL) 100 mg ORAL AT BEDTIME DULoxetine 90 mg cap(s) (CYMBALTA) 90 mg ORAL DAILY lactated ringers iv infusion 125 mL/hr INTRAVENOUS CONTINUOUS ondansetron 4 mg tab(s) (ZOFRAN) 4 mg ORAL q 6 H PRN Or ondansetron (PF) 4 mg injection (ZOFRAN) 4 mg INTRAVENOUS q 6 H PRN enoxaparin 40 mg injection (LOVENOX) 40 mg SUBCUTANEOUS DAILY NaCl 0.9% iv flush bag 20 mL INTRAVENOUS PRN acetaminophen 975 mg tab(s) (TYLENOL) 975 mg ORAL q 8 H Labs: Recent Labs 09/26/22 0411 09/25/22 1840 09/25/22 0851 09/25/22 0124 NA 135* -- 137 138 K 4.0 4.3 2.9* 2.6* CHLOR 101 -- 102 104 CO2 28 -- 26 26 BUN 3* -- 4* 3* CREAT 0.31* -- 0.34* 0.35* GLUC 107* -- 107* 102* ANION 6* -- 9 8* CA 8.3* -- 7.8* 7.5* MG -- -- 1.5* 1.5* P -- 4.3 0.9* 0.9* WBC 4.60 -- 4.82 3.56* HB 10.2* -- 10.1* 8.6* HCT 28.9* -- 29.9* 24.9* PLT 274 -- 265 222 Physical Exam: GENERAL: No distress, Alert NEURO: AANDOx3, CN II-XII grossly intact HEENT: normocephalic, atraumatic LUNGS: Unlabored breathing, equal chest rise bilaterally CARDIAC: Regular rate, warm and well perfused distal extremities ABDOMEN: Soft, mild TTP, minimally distended. Midline incision C/D/I with zenia EXTREMITIES: GARCIA, No deformities, No edema SKIN: Skin color, texture, turgor normal, No rashes or lesions ASSESSMENT AND PLAN: Assessment Active Hospital Problems Diagnosis Date Noted SBO (small bowel obstruction) ([facility]) 09/20/2022 Pressure injury of coccygeal region, stage 2 ([facility]) 09/22/2022 Pressure injury of perianal region, stage 2 ([facility]) 09/22/2022 Paralysis ([facility]) 09/20/2022 Encounter for pain management 09/20/2022 Moderate protein-calorie malnutrition ([facility]) 09/20/2022 Assessment: 72 year old female with PMH of CAD, CHF, depression, hemorrhoids, osteoporosis, constipation, intrathecal pain pump, 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, s/p laparoscopic augmentation cystoplasty with ileoileal catheterizable stoma at the umbilicus for neurogenic bladder presenting with SBO; s/p Exploratory laparotomy, ANDREW on 09/23 Hospital Course/Operations/Procedures: 09/23/2022 Procedure(s): EXPLORATORY LAPAROTOMY ADULT, LYSIS OF ADHESIONS Plan: SBO S/p Ex lap, ANDREW - Pain/nausea control - CLD - Await return of bowel function to advance diet - Miralax - VTE ppx: Lovenox, IPCs, Progressive mobility protocol UTI - On Bactrim DS x 7 days total - Pt continues to straight cath via umbilical stoma Acute on chronic pain - Pain Management following, (more content not included)... [facility] 09-25-2022 Note HNO ID: [id number] Author: Beth Hunter, HARJINDER.AUTOMOTIVE MACHINIST APPRENTICE Service: General Surgery Author Type: Nurse Specialist Type: Progress Notes Filed: 09/25/2022 6:49 PM Note Text: Emergency General Surgery Progress Note SERVICE DATE: September 25, 2022 Emergency General Surgery Service Pager: For questions or concerns Mon-Fri 6a-5p please page [phone]. After 5pm and on Weekends and Holidays, please page [phone] if in ICU or [phone] if on RNF. SUBJECTIVE: POD 2: ex lap, ANDREW NG removed yesterday - denies N/V but still not passing flatus, no BM. Midline zenia healing - no erythema or drainage. Pain controlled - input from pain mgmt. Pt caths via stoma with adequate urine output. PT/OT recs for AR. Tolerating diet DIET LIQUID OBJECTIVE: Vitals: Temp (24hrs), Av ?C (98.6 ?F), Min:36.7 ?C (98.1 ?F), Max:37.3 ?C (99.1 ?F) BP 138/69 Pulse 85 Temp 37.1 ?C (98.8 ?F) (Oral) Resp 18 Ht 160 cm (5' 3 ) Wt 48.5 kg (106 lb 14.8 oz) LMP 08/16/2002 SpO2 98% BMI 18.94 kg/m? O2 Therapy: Room Air IANDO: Date 09/24/22 1500 - 09/25/22 0659 09/25/22 0700 - 09/26/22 0659 Shift 6867-8845 2595-3796 24 Hour Total 5986-9249 6784-2248 8401-6694 24 Hour Total INTAKE PO 250 250 360 360 PO 250 250 360 360 Supplements (mL) 0 0 IV 100 100 Volume (mL) (potassium chloride iv piggyback 20 mEq/100 mL) 100 100 Shift Total 250 250 460 460 OUTPUT Urine 900 900 468 780 4728 Void (ml) 900 900 Straight cath (ml) 946 651 6759 Urine Not Saved. 1 x 3 x Tubes 1000 Output ([REMOVED] GI Feed 09/20/22 0228 Admission to Hospital Gastric Left Naris 09/24/22 1643) 1000 Shift Total 900 1900 780 812 6705 Weight (kg) 48.5 48.5 48.5 48.5 48.5 48.5 48.5 MEDICATIONS Current Facility-Administered Medications Medication Dose Route Frequency HYDROmorphone (PF) 1 mg injection (DILAUDID) 1 mg INTRAVENOUS q 2 H PRN oxyCODONE 15 mg immediate release tablet (ROXICODONE) 15 mg ORAL q 4 H PRN potassium-sodium phosphates 1 Packet (PHOS-NAK) 1 Packet ORAL PC and HS calcium gluconate 3 g in NaCl 0.9% 250 mL 3 g INTRAVENOUS ONCE polyethylene glycol 3350 17 g packet 17 g ORAL DAILY prochlorperazine 10 mg injection (COMPAZINE) 10 mg INTRAVENOUS q 6 H PRN HYDROmorphone (PWD) 32 mg, baclofen 100 % 2,000 mcg, bupivacaine 30 mg patient's own pump - MAR placeholder INTRATHECAL CONTINUOUS gabapentin 800 mg cap(s) (NEURONTIN) 800 mg ORAL q 6 H sulfamethoxazole-trimethoprim 800-160 mg 1 tablet (BACTRIM DS) 1 tablet ORAL q 12 H cloNIDine HCl 0.2 mg tab(s) (CATAPRES) 0.2 mg ORAL AT BEDTIME traZODone 100 mg tab(s) (DESYREL) 100 mg ORAL AT BEDTIME DULoxetine 90 mg cap(s) (CYMBALTA) 90 mg ORAL DAILY lactated ringers iv infusion 125 mL/hr INTRAVENOUS CONTINUOUS ondansetron 4 mg tab(s) (ZOFRAN) 4 mg ORAL q 6 H PRN Or ondansetron (PF) 4 mg injection (ZOFRAN) 4 mg INTRAVENOUS q 6 H PRN enoxaparin 40 mg injection (LOVENOX) 40 mg SUBCUTANEOUS DAILY NaCl 0.9% iv flush bag 20 mL INTRAVENOUS PRN acetaminophen 975 mg tab(s) (TYLENOL) 975 mg ORAL q 8 H Labs: Recent Labs 09/25/22 0851 09/25/22 0124 NA 137 138 K 2.9* 2.6* CHLOR 102 104 CO2 26 26 BUN 4* 3* CREAT 0.34* 0.35* GLUC 107* 102* ANION 9 8* CA 7.8* 7.5* MG 1.5* 1.5* P 0.9* 0.9* WBC 4.82 3.56* HB 10.1* 8.6* HCT 29.9* 24.9* PLT 265 222 Physical Exam: GENERAL: No distress, Alert NEURO: AANDOx3, CN II-XII grossly intact HEENT: normocephalic, atraumatic LUNGS: Unlabored breathing, equal chest rise bilaterally CARDIAC: Regular rate, warm and well perfused distal extremities ABDOMEN: Soft, appropriately ttp, midline abdominal wound with zenia c/d/I; intrathecal pump visible under skin, stoma for urine EXTREMITIES: paraplegia BLE, No deformities, No edema SKIN: Skin color, texture, turgor normal, No rashes or lesions ASSESSMENT AND PLAN: Assessment Active Hospital Problems Diagnosis Date Noted SBO (small bowel obstruction) ([facility]) 09/20/2022 Pressure injury of coccygeal region, stage 2 ([facility]) 09/22/2022 Pressure injury of perianal region, stage 2 ([facility]) 09/22/2022 Paralysis ([facility]) 09/20/2022 Encounter for pain management 09/20/2022 Moderate protein-calorie malnutrition ([facility]) 09/20/2022 Hospital Course/Operations/Procedures: 09/23 ex lap, ANDREW Assessment/Plan: 72 year old female with PMH CAD, CHF, depression, hemorrhoids, osteoporosis, constipation, intrathecal pain pump, 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 [facility] 09-25-2022 Note HNO ID: [id number] Author: Jayleen Romo RN Service: Care Management Author Type: Registered Nurse Type: Care Mgt Progress Note Filed: 09/25/2022 12:35 PM Note Text: CARE MANAGEMENT PROGRESS NOTE SERVICE DATE: 09/25/2022 SERVICE TIME: 12:33 PM LOS: 5 days Needs Prior to Discharge: Other: See Comment;Discharge Transportation (Expedited covid test prior to discharge.) Chart reviewed. PICC placed.Patient on clears. Waiting on return of BF. Plan when medically ready is [facility] [place]. No precert. Will need an expedited covid test prior to discharge. CM will continue to follow. SIGNATURE: Jayleen Romo RN PATIENT NAME: Aleena Andrea DATE: September 25, 2022 TIME: 12:33 PM PAGER/CONTACT #: [phone] [facility] 09-25-2022 Note HNO ID: [id number] Author: Kamilah Swanson MD Service: Pain Management Author Type: Physician Type: Progress Notes Filed: 09/25/2022 9:20 AM Note Text: Name: ALEENA ANDREA Age: [age] year old PAIN MANAGEMENT: History of paraplegia from transverse myelitis, chronic pain syndrome, intrathecal pump, SBO Pain Description: ongoing abdominal pain; a little better Interval HPI: No acute events overnight. Waiting for return bowel function 09/24 ex lap, ANDREW 24H Comfort Meds: Tylenol 975 mg x 3 Cymbalta 90 mg daily Gabapentin 800 mg x 3 Dilaudid 1 mg IV x 3 Zofran 4 mg po x 1 Compazine 10 mg x 0 Trazodone 100 mg x 1 Subjective HPI: 72-year-old female with history of transverse myelitis with subsequent paralysis (July 2000) s/p intrathecal pain pump, neurogenic bladder s/p lap augmentation cystoplasty with ileoileal catheterizable stoma at umbilicus, CAD, CHF, osteoporosis, depression presented 09/20 with nausea, emesis and abdominal pain. AP CT concerning for SBO and constipation. NG tube placed for decompression. Gastrografin contrast study pending. Patient remains NPO/IVF, NGT to [facility]. Patient noted to have mild hypotension, UTI. Home pain regimen managed by Que PEARCE includes intrathecal pump (Dilaudid, baclofen) oxycodone 15 mg up to 4 tabs daily, Cymbalta 90 mg daily, gabapentin 800 mg 4 times daily. She lives with her daughter. She has not had an intrathecal pump for about 20 years; it was replaced about 3 years ago. She states it is filled every month and is due to be refilled in 3 weeks. [facility] Review: 61 prescriptions from 5 prescribers most recent: 09/05 baclofen Powder 08/07, 09/05 oxycodone 15 mg #120 (30-day supply) 05/31, 08/29 gabapentin 800 mg #360 (90-day supply) 08/08 Dilaudid powder Current Facility-Administered Medications Medication Dose Route Frequency Provider Last Rate Last Admin polyethylene glycol 3350 17 g packet 17 g ORAL DAILY Emely Pacheco DO 17 g at 09/24/22 0837 HYDROmorphone (PF) 1 mg injection (DILAUDID) 1 mg INTRAVENOUS q 2 H PRN Nabila Chowdhury APRN.LINE [employer] OWNER OPERATOR 1 mg at 09/24/222012 prochlorperazine 10 mg injection (COMPAZINE) 10 mg INTRAVENOUS q 6 H PRN Nabila Chowdhury APRN.LINE [employer] OWNER OPERATOR 10 mg at 09/23/222051 HYDROmorphone (PWD) 32 mg, baclofen 100 % 2,000 mcg, bupivacaine 30 mg patient's own pump - MAR placeholder INTRATHECAL CONTINUOUS Emely Tara, DO New Bag at 09/22/22 1100 gabapentin 800 mg cap(s) (NEURONTIN) 800 mg ORAL q 6 H [facility] Tara, DO 800 mg at 09/25/22 0436 sulfamethoxazole-trimethoprim 800-160 mg 1 tablet (BACTRIM DS) 1 tablet ORAL q 12 H [facility] Tara, DO 1 tablet at 09/24/222013 cloNIDine HCl 0.2 mg tab(s) (CATAPRES) 0.2 mg ORAL AT BEDTIME [facility], DO 0.2 mg at 09/24/222013 traZODone 100 mg tab(s) (DESYREL) 100 mg [facility] mg at 09/24/222013 DULoxetine 90 mg cap(s) (CYMBALTA) 90 mg ORAL DAILY Emely Tara, DO 90 mg at 09/24/22 0837 lactated ringers iv infusion 125 mL/hr INTRAVENOUS CONTINUOUS Emely Tara, DO 125 mL/hr at 09/23/22 1657 125 mL/hr at 09/23/22 1657 ondansetron 4 mg tab(s) (ZOFRAN) 4 mg ORAL q 6 H PRN Emely Tara, DO 4 mg at 09/24/22 1207 Or ondansetron (PF) 4 mg injection (ZOFRAN) 4 mg INTRAVENOUS q 6 H PRN Emely Tara, DO 4 mg at 09/24/22 0459 enoxaparin 40 mg injection (LOVENOX) 40 mg SUBCUTANEOUS DAILY [facility] Tara, DO 40 mg at 09/24/22 0837 NaCl 0.9% iv flush bag 20 mL INTRAVENOUS PRN Emely Tara, DO acetaminophen 975 mg tab(s) (TYLENOL) 975 mg ORAL q 8 H Emely Tara, DO 975 mg at 09/25/22 0436 acetaminophen (TYLENOL) 325 mg tablet, Take 650 mg by mouth every 6 hours as needed (with oxycodone)., Disp: , Rfl: gabapentin (NEURONTIN) 800 mg tablet, Take 800 mg by mouth four times daily., Disp: , Rfl: cloNIDine HCl (CATAPRES) 0.2 mg tablet, Take 0.2 mg by mouth daily at bedtime., Disp: , Rfl: tiZANidine (ZANAFLEX) 2 mg tablet, Take 2 mg by mouth every 6 hours as needed., Disp: , Rfl: docusate sodium (COLACE) 100 mg capsule, Take 100 mg by mouth twice daily as needed for constipation., Disp: , Rfl: POLYETHYLENE GLYCOL 3350 (MIRALAX ORAL), Take by mouth., Disp: , Rfl: traZODone 100 mg tablet, Take 100 mg by mouth daily at bedtime., Disp: , Rfl: DENOSUMAB (PROLIA SUBCUTANEOUS), Inject subcutaneously. One injection every 6 months., Disp: , Rfl: , 04/03/2022 NAPROXEN ORAL, Take 375 mg by mouth twice daily., Disp: , Rfl: oxyCODONE ER (OXYCONTIN, EXTENDED REL.,) 20 mg tab ER 12 hr, Take 15 mg by mouth every 6 hours., Disp: , Rfl: DULoxetine (CYMBALTA) 30 mg capsule, Take 90 mg by mouth once daily., Disp: , Rfl: baclofen (LIORESAL) 10 mg tablet, Take 10 mg by mouth twice daily., Disp: , Rfl: 0 amitriptyline (ELAVIL) 50 mg tablet, , Disp: , Rfl: triamcinolone (KENALOG IN ORABASE) 0.1 % paste, , Disp: , Rfl: (No Medication Selected), by INTRATHECAL route continuous., Disp: , Rfl: W (more content not included)... [facility] 09-24-2022 Note HNO ID: [id number] Author: Katelyn Alfonso RN Service: PICC Team Author Type: Registered Nurse Type: Procedures Filed: 09/24/2022 2:39 PM Note Text: MIDLINE INSERTION PROCEDURE NOTE - PICC TEAM NURSES DATE OF PROCEDURE: 09/24/2022 TIME OF PROCEDURE: 1420 ORDERING PHYSICIAN: Adrian Indications for line placement: Intravenous access Condition of line placement: Sterile Primary Proceduralist: Yuko Hauser RN Assistant Field Hockey Coach: Katelyn Alfonso RN Pre-procedure Review: ALLERGIES Allergen Reactions Ziconotide Other: See Comments Known history of Upper Venous Thrombosis: No Known history of Permanent Pacemaker or Automated Implanted Cardiac Device: No Previous breast surgery of lymph node dissection: No Estimated Glomerular Filtration Rate Date Value Ref Range Status 09/24/2022 114 >=60 mL/min/1.73m? Final Comment: Estimated Glomerular Filtration Rate (eGFR) is calculated using the 2020 CKD-EPI creatinine equation. This equation utilizes serum creatinine, sex, and age as parameters. The creatinine assay has traceable calibration to isotope dilution-mass spectrometry. Refer to KDIGO guidelines for clinical interpretation. In patients with unstable renal function, e.g. those with acute kidney injury, the eGFR may not accurately reflect actual GFR. History of Renal Disease: No Ultrasound assessment complete: Yes Procedure Narrative Safe Practice: Hand hygiene per hospital policy: Yes Skin preparation used: Chloraprep (CHG + alcohol), allowed to dry Barriers used by Proceduralist and all assisting personnel: Yes UNIVERSAL PROTOCOL / SAFETY CHECKLIST Procedure to be Performed: Midline Catheter Sign In: A Moment of CARE was completed. Personnel directly involved with the procedure wore the appropriate PPE (Personal Protective Equipment). Special equipment: ultrasound Patient/Surrogate Stated/Verified: PATIENT VERIFIED(optional for EMERGENT procedures): Patient name, Date of , Relevant allergies, and The intended procedure Time Out Communication: Intended patient and procedure match the source documents. Relevant labs, photos, and/or imaging studies have been reviewed. Correct side/site marked and visible. Medications required for procedure verified. Fire risk assessed and interventions discussed. No implant(s) inserted. Sign Out: SIGN OUT (optional for EMERGENT procedures): No specimen collected. All instruments, equipment, possible retained foreign bodies accounted for. Post-procedure follow-up management communicated and Plan of Care Visit completed when applicable. Katelyn Alfonso RN Midline Catheter Placement: Brand: Bard Lot: [id number] Number of lumens: 1 Type of Midline: Power Injectable Midline Lumen size: 4 Macedonian Placement Technique: Lidocaine: Yes, Lidocaine 1% Volume 1 mL Subcutaneous Modified Seldinger Technique use to place line via the: Right Basilic Ultrasound Guidance: Yes Number of attempts at insertion: 1 Ensured control of guidewire during all aspects of the procedure: Yes Accounted for entire guidewire upon removal: Yes Internal length: 14 cm External length: 0 cm Trim length:14 cm Mid-Arm circumference: 21 centimeters Post insertion pain level related to procedure: 0 Action taken to address pain: None needed Verified placement: Positive blood return Line was flushed with 20 mL normal saline Line secured with: Securement device Sterile dressing applied and dated: Yes Sterile caps on all ports prior to leaving procedure area: Yes, Disinfection caps applied Specimens: None Complications: None Patient education materials: Left at bedside Questions or problems: Call [phone] SIGNATURE: Katelyn Alfonso RN PATIENT NAME: Aleena Andrea DATE: September 24, 2022 TIME: 2:36 PM PAGER: [phone] [facility] 09-24-2022 Note HNO ID: [id number] Author: Jovita Jama RN Service: Care Management Author Type: Registered Nurse Type: Care Mgt Progress Note Filed: 09/24/2022 2:55 PM Note Text: CARE MANAGEMENT PROGRESS NOTE SERVICE DATE: 09/24/2022 SERVICE TIME: 2:31 PM LOS: 4 days Post-Acute Discharge Planning Patient Goal(s): General wellness, Increase strength, Less pain [place] of Choice Explained: [place] of [place] Given: Yes Level of Care Discussed: Inpatient Rehab Facility;Nursing Home Facility Discharge Planning Participant(s): Patient;Family Anticipated # of Days Until Discharge: To be determined Transport at Discharge: Transportation Arrangements: Ambulance Needs Prior to Discharge: Needs Prior to Discharge: Discharge Transportation, Accepting Facility Post-Acute Discharge Plan: Chart reviewed. Small bowel obstruction. S/p exploratory laparotomy, ANDREW on 09/23. Awaiting return of bowel function. Acute on chronic pain. Pain management following. Intrathecal pain pump in place provided by [employer]. PT/OT recommend acute rehab. Spoke with patient. Patient from home with her daughter Bela prior to admission. 1 level home with a ramp in place. Lower extremity paralysis. Current DME: Wheelchair, Hospital bed; Ostomy Supplies; Intrathecal Pain Pump provided by [employer] and Shower Seat. Independent with personal care. Needs minimal assistance with IADLs. For transportation, patient utilizes family or public transportation as needed. At baseline patient manages her own stoma and pain pump. Discussed therapy recommendations for placement at discharge. Patient in agreement. Patient's requests referrals to [facility] and [facility] due to past experience and location. Facilities notified. Awaiting acceptance. Medicare. No insurance authorization needed. Per Renita Saha with [employer] ), no new orders for patient's pain pump needed at discharge. Will continue to follow clinical course for further transitional/discharge planning needs. ADDENDUM 09/24/22 1449: [facility] is able to accept once medically stable. No insurance authorization needed. SIGNATURE: Jovita Jama RN PATIENT NAME: Aleena Andrea DATE: September 24, 2022 TIME: 2:31 PM PAGER/CONTACT #: [phone] [facility] 09-24-2022 Note HNO ID: [id number] Author: Kamilah Swanson MD Service: Pain Management Author Type: Physician Type: Progress Notes Filed: 09/24/2022 1:24 PM Note Text: Name: ALEENA ANDREA Age: [age] year old PAIN MANAGEMENT: History of paraplegia from transverse myelitis, chronic pain syndrome, intrathecal pump, SBO Pain Description: Patient with persistent abdominal pain; feels a little better after surgery yesterday Interval HPI: Stable overnight; no acute events. Await return bowel function. Remains NPO/IVF 09/24 ex lap, ANDREW 24H Comfort Meds: Tylenol 975 mg every 8 hours x 1 Cymbalta 90 mg daily Gabapentin 800 mg x 3 Dilaudid 1 mg IV x5 Zofran 4 mg IV x3 Compazine 10 mg x 2 Trazodone 100 mg x 1 PACU Fentanyl 50 mcg x2 Subjective HPI: 72-year-old female with history of transverse myelitis with subsequent paralysis (July 2000) s/p intrathecal pain pump, neurogenic bladder s/p lap augmentation cystoplasty with ileoileal catheterizable stoma at umbilicus, CAD, CHF, osteoporosis, depression presented 09/20 with nausea, emesis and abdominal pain. AP CT concerning for SBO and constipation. NG tube placed for decompression. Gastrografin contrast study pending. Patient remains NPO/IVF, NGT to LIWS. Patient noted to have mild hypotension, UTI. Home pain regimen managed by [place] PM includes intrathecal pump (Dilaudid, baclofen) oxycodone 15 mg up to 4 tabs daily, Cymbalta 90 mg daily, gabapentin 800 mg 4 times daily. She lives with her daughter. She has not had an intrathecal pump for about 20 years; it was replaced about 3 years ago. She states it is filled every month and is due to be refilled in 3 weeks. OARRS Review: 61 prescriptions from 5 prescribers most recent: 09/05 baclofen Powder 08/07, 09/05 oxycodone 15 mg #120 (30-day supply) 05/31, 08/29 gabapentin 800 mg #360 (90-day supply) 08/08 Dilaudid powder Current Facility-Administered Medications Medication Dose Route Frequency Provider Last Rate Last Admin lidocaine 10 mg/mL (1 %) 10-100 mg injection (XYLOCAINE) 1-10 mL INTRADERMAL DIRECTED PRN Beth Campbell, UNION CONTRACT REPRESENTATIVE.AUTOMOTIVE MACHINIST APPRENTICE polyethylene glycol 3350 17 g packet 17 g ORAL DAILY Emely Tara, DO 17 g at 09/24/22 0837 HYDROmorphone (PF) 1 mg injection (DILAUDID) 1 mg INTRAVENOUS q 2 H PRN Nabial Chowdhury, UNION CONTRACT REPRESENTATIVE.LINE HAUL OWNER OPERATOR 1 mg at 09/24/22 0500 prochlorperazine 10 mg injection (COMPAZINE) 10 mg INTRAVENOUS q 6 H PRN Nabila Chowdhury, UNION CONTRACT REPRESENTATIVE.LINE HAUL OWNER OPERATOR 10 mg at 09/23/222051 HYDROmorphone (PWD) 32 mg, baclofen 100 % 2,000 mcg, bupivacaine 30 mg patient's own pump - [facility] placeholder INTRATHECAL CONTINUOUS Emely Tara, DO New Bag at 09/22/22 1100 gabapentin 800 mg cap(s) (NEURONTIN) 800 mg [facility]AL q 6 [facility] 800 mg at 09/24/22 1207 sulfamethoxazole-trimethoprim 800-160 mg 1 tablet (BACTRIM DS) 1 tablet ORAL q 12 H Emely Tara, DO 1 tablet at 09/24/22 08 cloNIDine HCl 0.2 mg tab(s) (CATAPRES) 0.2 mg ORAL AT BEDTIME [facility] 0.2 mg at 09/23/222043 traZODone 100 mg tab(s) (DESYREL) 100 mg ORAL AT BEDTIME Emely Tara, DO 100 mg at 09/23/222043 DULoxetine 90 mg cap(s) (CYMBALTA) 90 mg ORAL DAILY Emely Tara, DO 90 mg at 09/24/22 0837 lactated ringers iv infusion 125 mL/hr INTRAVENOUS CONTINUOUS Emely Tara, DO 125 mL/hr at 09/23/22 1657 125 mL/hr at 09/23/22 1657 ondansetron 4 mg tab(s) (ZOFRAN) 4 mg ORAL q 6 H PRN Emely Tara, DO 4 mg at 09/24/22 1207 Or ondansetron (PF) 4 mg injection (ZOFRAN) 4 mg INTRAVENOUS q 6 H PRN Emely Tara, DO 4 mg at 09/24/22 0459 enoxaparin 40 mg injection (LOVENOX) 40 mg SUBCUTANEOUS DAILY Emely Tara, DO 40 mg at 09/24/22 0837 NaCl 0.9% iv flush bag 20 mL INTRAVENOUS PRN Emely Tara, DO acetaminophen 975 mg tab(s) (TYLENOL) 975 mg ORAL q 8 H Emely Tara, DO 975 mg at 09/23/22 2044 acetaminophen (TYLENOL) 325 mg tablet, Take 650 mg by mouth every 6 hours as needed (with oxycodone)., Disp: , Rfl: gabapentin (NEURONTIN) 800 mg tablet, Take 800 mg by mouth four times daily., Disp: , Rfl: cloNIDine HCl (CATAPRES) 0.2 mg tablet, Take 0.2 mg by mouth daily at bedtime., Disp: , Rfl: tiZANidine (ZANAFLEX) 2 mg tablet, Take 2 mg by mouth every 6 hours as needed., Disp: , Rfl: docusate sodium (COLACE) 100 mg capsule, Take 100 mg by mouth twice daily as needed for constipation., Disp: , Rfl: POLYETHYLENE GLYCOL 3350 (MIRALAX ORAL), Take by mouth., Disp: , Rfl: traZODone 100 mg tablet, Take 100 mg by mouth daily at bedtime., Disp: , Rfl: DENOSUMAB (PROLIA SUBCUTANEOUS), Inject subcutaneously. One injection every 6 months., Disp: , Rfl: , 04/03/2022 NAPROXEN ORAL, Take 375 mg by mouth twice daily., Disp: , Rfl: oxyCODONE ER (OXYCONTIN, EXTENDED REL.,) 20 mg tab ER 12 hr, Take 15 mg by mouth every 6 hours., Disp: , Rfl: DULoxetine (CYMBALTA) 30 mg capsule, Take 90 mg by mouth once daily., Disp: , Rfl: baclofen (LIORESAL) 10 mg tablet, Take 10 mg by mouth (more content not included)... [facility] 09-24-2022 Note HNO ID: [id number] Author: Emely Pacheco DO Service: General Surgery Author Type: Resident Type: Progress Notes Filed: 09/24/2022 9:00 AM Note Text: Attestation signed by Lucas Kevin MD at 09/25/2022 1:54 PM Feeling somewhat better, awaiting bowel function and we will continue her on a laxative. I personally saw and examined the patient on 09/25/2022. I reviewed the resident?s note. I agree with the resident?s assessment and plan unless otherwise noted Lucas Kevin MD 1:53 PM 09/25/22 Please Note: This office note has been created using Cloupia, a speech recognition software program, and may contain errors including punctuation, grammar, spelling, gender, and inappropriate words or phrases that pertain to the sytem. Emergency General Surgery Progress Note SERVICE DATE: September 24, 2022 Emergency General Surgery Service Pager: For questions or concerns Mon-Fri 6a-5p please page [phone]. After 5pm and on Weekends and Holidays, please page [phone] if in ICU or [phone] if on RNF. SUBJECTIVE: Pt seen this morning. She has some pain overnight but does feel like the medications help her. No nausea, no vomiting. She has not yet had bowel function. Tolerating diet DIET NPO OBJECTIVE: Vitals: Temp (24hrs), Av.1 ?C (98.8 ?F), Min:36.6 ?C (97.9 ?F), Max:37.5 ?C (99.5 ?F) BP 151/69 Pulse 111 Temp 37.4 ?C (99.3 ?F) (Oral) Resp 18 Ht 160 cm (5' 3 ) Wt 48.5 kg (106 lb 14.8 oz) LMP 08/16/2002 SpO2 100% BMI 18.94 kg/m? O2 Therapy: Nasal Cannula IANDO: Date 09/23/22 07 - 09/24/22 0659 09/24/22 07 - 09/25/22 0659 Shift [id number] 4417-0272 3765-6103 24 Hour Total 0033-9899 3623-3604 4654-8765 24 Hour Total INTAKE PO 0 0 PO 0 0 IV 1900 1900 Volume (mL) (cefTRIAXone iv piggyback 2 g in dextrose (iso-osmotic) 50 mL (ROCEPHIN)) 50 50 Volume (mL) (lactated ringers iv infusion) 250 250 Volume (mL) (lactated ringers iv infusion) 1600 1600 Shift Total 1900 1900 OUTPUT Urine 250 1691 774 8207 Void (ml) 0 825 825 Straight cath (ml) 544 528 4869 OR Urine Output 250 250 Tubes 300 500 800 Output (GI Feed 09/20/22 0228 Admission to Hospital Gastric Left Naris) 300 500 800 Blood 10 10 Estimated Blood loss 10 10 Shift Total 560 4300 201 1147 Weight (kg) 48.5 48.5 48.5 48.5 48.5 48.5 48.5 48.5 MEDICATIONS Current Facility-Administered Medications Medication Dose Route Frequency polyethylene glycol 3350 17 g packet 17 g ORAL DAILY HYDROmorphone (PF) 1 mg injection (DILAUDID) 1 mg INTRAVENOUS q 2 H PRN prochlorperazine 10 mg injection (COMPAZINE) 10 mg INTRAVENOUS q 6 H PRN HYDROmorphone (PWD) 32 mg, baclofen 100 % 2,000 mcg, bupivacaine 30 mg patient's own pump - [facility] placeholder INTRATHECAL CONTINUOUS gabapentin 800 mg cap(s) (NEURONTIN) 800 mg ORAL q 6 H sulfamethoxazole-trimethoprim 800-160 mg 1 tablet (BACTRIM DS) 1 tablet ORAL q 12 H cloNIDine HCl 0.2 mg tab(s) (CATAPRES) 0.2 mg ORAL AT BEDTIME traZODone 100 mg tab(s) (DESYREL) 100 mg ORAL AT BEDTIME DULoxetine 90 mg cap(s) (CYMBALTA) 90 mg ORAL DAILY lactated ringers iv infusion 125 mL/hr INTRAVENOUS CONTINUOUS ondansetron 4 mg tab(s) (ZOFRAN) 4 mg ORAL q 6 H PRN Or ondansetron (PF) 4 mg injection (ZOFRAN) 4 mg INTRAVENOUS q 6 H PRN enoxaparin 40 mg injection (LOVENOX) 40 mg SUBCUTANEOUS DAILY NaCl 0.9% iv flush bag 20 mL INTRAVENOUS PRN acetaminophen 975 mg tab(s) (TYLENOL) 975 mg ORAL q 8 H Labs: Recent Labs 09/24/22 0558 09/24/22 0513 09/23/22 0521 09/22/22 1810 NA -- 137 137 139 K -- -- 3.5* 2.9* CHLOR -- 103 100 96* CO2 -- 21* 23 22 BUN -- 5* 5* 6* CREAT -- 0.30* 0.30* 0.33* GLUC -- 83 60* 70* ANION -- 13 14 21* CA -- 8.0* 7.9* 8.7 MG -- -- -- 1.7 P -- -- -- 1.4* ALB -- -- -- 3.7* AST -- -- -- 19 ALT -- -- -- 10 ALKPHOS -- -- -- 45 TBILI -- -- -- 0.4 WBC 6.80 -- 4.88 5.92 HB 12.1 -- 11.0* 10.8* HCT 36.2 -- 32.7* 32.8* PLT 311 -- 219 193 LACT -- -- -- 0.8 Physical Exam: GENERAL: No distress, Alert NEURO: AANDOx3, CN II-XII grossly intact HEENT: normocephalic, atraumatic LUNGS: Unlabored breathing, equal chest rise bilaterally CARDIAC: Regular rate, warm and well perfused distal extremities ABDOMEN: Soft, appropriately ttp, midline abdominal wound with dressing c/d/i, no rebound or guarding. EXTREMITIES: GARCIA, No deformities, No edema SKIN: Skin color, texture, turgor normal, No rashes or lesions ASSESSMENT AND PLAN: Assessment Active Hospital Problems Diagnosis Date Noted SBO (small bowel obstruction) ([facility]) 09/20/2022 Pressure injury of coccygeal region, stage 2 ([facility]) 09/22/2022 Pressure injury of perianal region, stage 2 ([facility]) 09/22/2022 Paralysis ([facility]) 09/20/2022 Encounter for pain management 09/20/2022 Moderate protein-rhonda (more content not included)... [facility] 09-23-2022 Note HNO ID: [id number] Author: Homa Simon RN Service: ? Author Type: Registered Nurse Type: Nursing Progress Note Filed: 09/23/2022 6:31 PM Note Text: Other: Pt BP 172/89 at 14:32. Notified EGS, no new orders at this time. [facility] 09-23-2022 Note HNO ID: [id number] Author: Nabila Chowdhury APRN.ABISAI Service: Pain Management Author Type: Nurse Practitioner Type: Progress Notes Filed: 09/23/2022 2:32 PM Note Text: Name: ALEENA ANDREA Age: [age] year old PAIN MANAGEMENT: History of paraplegia from transverse myelitis, chronic pain syndrome, intrathecal pump, SBO Pain Description: Hurts pretty bad . Asking about pain meds already Interval HPI: s/p ex lap with lysis removal 24H Comfort Meds: Tylenol 975 mg every 8 hours x 3 Cymbalta 90 mg daily Gabapentin 300 mg every 8 hours x4 Zofran 4 mg IV every 6 hours as needed x4 Oxycodone 15 mg every 4 hours as needed x1 Trazodone 100 mg at bedtime Dilaudid 1mg IV x5 OR: Fentanyl 50 mcg x2 Subjective HPI: 72-year-old female with history of transverse myelitis with subsequent paralysis (July 2000) s/p intrathecal pain pump, neurogenic bladder s/p lap augmentation cystoplasty with ileoileal catheterizable stoma at umbilicus, CAD, CHF, osteoporosis, depression presented 09/20 with nausea, emesis and abdominal pain. AP CT concerning for SBO and constipation. NG tube placed for decompression. Gastrografin contrast study pending. Patient remains NPO/IVF, NGT to LIWS. Patient noted to have mild hypotension, UTI. Home pain regimen managed by [place] [facility] includes intrathecal pump (Dilaudid, baclofen) oxycodone 15 mg up to 4 tabs daily, Cymbalta 90 mg daily, gabapentin 800 mg 4 times daily. She lives with her daughter. She has not had an intrathecal pump for about 20 years; it was replaced about 3 years ago. She states it is filled every month and is due to be refilled in 3 weeks. OARRS Review: 61 prescriptions from 5 prescribers most recent: 09/05 baclofen Powder 08/07, 09/05 oxycodone 15 mg #120 (30-day supply) 05/31, 08/29 gabapentin 800 mg #360 (90-day supply) 08/08 Dilaudid powder Current Facility-Administered Medications Medication Dose Route Frequency Provider Last Rate Last Admin polyethylene glycol 3350 17 g packet 17 g ORAL DAILY Emely Tara, DO prochlorperazine 10 mg tab(s) (COMPAZINE) 10 mg ORAL q 6 H PRN Emely Tara, DO 10 mg at 09/22/22 1530 HYDROmorphone (PWD) 32 mg, baclofen 100 % 2,000 mcg, bupivacaine 30 mg patient's own pump - [facility] placeholder INTRATHECAL CONTINUOUS Emely Tara, DO New Bag at 09/22/22 1100 gabapentin 800 mg cap(s) (NEURONTIN) 800 mg ORAL q 6 H Emely Tara, DO 800 mg at 09/23/22 1248 HYDROmorphone (PF) 1 mg injection (DILAUDID) 1 mg INTRAVENOUS q 3 H PRN Emely Tara, DO 1 mg at 09/23/22 1248 sulfamethoxazole-trimethoprim 800-160 mg 1 tablet (BACTRIM DS) 1 tablet ORAL q 12 H Emely Tara, DO 1 tablet at 09/22/222014 cloNIDine HCl 0.2 mg tab(s) (CATAPRES) 0.2 mg ORAL AT BEDTIME [facility] Tara, DO 0.2 mg at 09/22/222014 traZODone 100 mg tab(s) (DESYREL) 100 mg ORAL AT BEDTIME [facility] Tara, DO 100 mg at 09/22/222239 DULoxetine 90 mg cap(s) (CYMBALTA) 90 mg ORAL DAILY [facility] Tara, DO 90 mg at 09/22/22 0803 lactated ringers iv infusion 125 mL/hr INTRAVENOUS CONTINUOUS [facility] Tara, DO 125 mL/hr at 09/22/22 1254 125 mL/hr at 09/22/22 1254 ondansetron 4 mg tab(s) (ZOFRAN) 4 mg ORAL q 6 H PRN Emely Tara, DO Or ondansetron (PF) 4 mg injection (ZOFRAN) 4 mg INTRAVENOUS q 6 H PRN Emely Tara, DO 4 mg at 09/23/22 1248 enoxaparin 40 mg injection (LOVENOX) 40 mg SUBCUTANEOUS DAILY [facility], DO 40 mg at 09/23/22 0855 NaCl 0.9% iv flush bag 20 mL INTRAVENOUS PRN [facility] Tara, DO acetaminophen 975 mg tab(s) (TYLENOL) 975 mg ORAL q 8 H [facility], DO 975 mg at 09/23/22 0527 acetaminophen (TYLENOL) 325 mg tablet, Take 650 mg by mouth every 6 hours as needed (with oxycodone)., Disp: , Rfl: gabapentin (NEURONTIN) 800 mg tablet, Take 800 mg by mouth four times daily., Disp: , Rfl: cloNIDine HCl (CATAPRES) 0.2 mg tablet, Take 0.2 mg by mouth daily at bedtime., Disp: , Rfl: tiZANidine (ZANAFLEX) 2 mg tablet, Take 2 mg by mouth every 6 hours as needed., Disp: , Rfl: docusate sodium (COLACE) 100 mg capsule, Take 100 mg by mouth twice daily as needed for constipation., Disp: , Rfl: POLYETHYLENE GLYCOL 3350 (MIRALAX ORAL), Take by mouth., Disp: , Rfl: traZODone 100 mg tablet, Take 100 mg by mouth daily at bedtime., Disp: , Rfl: DENOSUMAB (PROLIA SUBCUTANEOUS), Inject subcutaneously. One injection every 6 months., Disp: , Rfl: , 04/03/2022 NAPROXEN ORAL, Take 375 mg by mouth twice daily., Disp: , Rfl: oxyCODONE ER (OXYCONTIN, EXTENDED REL.,) 20 mg tab ER 12 hr, Take 15 mg by mouth every 6 hours., Disp: , Rfl: DULoxetine (CYMBALTA) 30 mg capsule, Take 90 mg by mouth once daily., Disp: , Rfl: baclofen (LIORESAL) 10 mg tablet, Take 10 mg by mouth twice daily., Disp: , Rfl: 0 amitriptyline (ELAVIL) 50 mg tablet, , Disp: , Rfl: triamcinolone (KENALOG IN ORABASE) 0.1 % paste, , Disp: , Rfl: (No Medication Selected), by INTRATHECAL route continuous., D (more content not included)... [facility] 09-23-2022 Note HNO ID: [id number] Author: Carlos Acuna APRN.TRADING MANAGER Service: ? Author Type: Nurse Potato Picker Type: Anesthesia Procedure Notes Filed: 09/23/2022 9:21 AM Note Text: ANESTHESIOLOGY PROCEDURE NOTE PIV General Information Procedure Start Time/Medication Administration: 09/23/2022 8:55 AM Patient Location: OR Staffing TRADING MANAGER: Carlos Acuna APRN.TRADING MANAGER Performed by: TRADING MANAGER Preparation Sterility Preparation: hand hygiene performed prior to procedure, skin prep agent completely dried prior to procedure Sterility Technique Not Completely Performed Due to Extreme Emergency: No Site Prep: chlorhexidine Procedure Details Needle Size/Type: 18 gauge angiocath Orientation: Left Location: Wrist Imaging Guidance Used: No SIGNATURE: Carlos Acuna APRN.TRADING MANAGER PATIENT NAME: Aleena Andrea DATE: September 23, 2022 TIME: 9:20 AM CSN: [id number] [facility] 09-23-2022 Note HNO ID: [id number] Author: Carlos Acuna APRN.TRADING MANAGER Service: ? Author Type: Nurse Potato Picker Type: Anesthesia Procedure Notes Filed: 09/23/2022 9:20 AM Note Text: ANESTHESIOLOGY PROCEDURE NOTE Airway General Information Procedure Start Time/Medication Administration: 09/23/2022 8:45 AM Patient location during procedure: OR Timeout Performed Pre-procedure: timeout performed Consent Obtained: Yes Patient identity confirmed: arm band Staffing TRADING MANAGER: Carlos Acuna APRN.TRADING MANAGER Performed by: SIMRAN Indications and Patient Condition Indications for airway management: anesthesia and airway protection Preoxygenated: yes anesthesia circuit Patient position: sniffing Method: rapid sequence Cricoid Pressure: Yes Manual In-Line Stabilization: No Difficult Mask: No Final Airway Details Final airway type: endotracheal airway Final Endotracheal Airway: ETT Cuffed: yes Successful intubation technique: direct laryngoscopy Endotracheal tube insertion site: oral Blade: Arce Blade size: #2 ETT size (mm): 7.0 Measured from: gums Measurement (cm): 21 Placement verified by: chest auscultation Cormack-Lehane Classification: grade IIa - partial view of glottis Number of attempts at approach: 1 Failed airway: no Unrecognized esophageal intubation: no Airway not difficult SIGNATURE: Carlos Acuna APRN.CRNA PATIENT NAME: Aleena Andrea DATE: September 23, 2022 TIME: 9:19 AM CSN: [id number] [facility] 09-23-2022 Note HNO ID: [id number] Author: Lorrie Aleman APRN.LINE HAUL OWNER OPERATOR Service: General Surgery Author Type: Nurse Practitioner Type: Progress Notes Filed: 09/23/2022 1:39 PM Note Text: Emergency General Surgery Progress Note SERVICE DATE: September 23, 2022 Emergency General Surgery Service Pager: For questions or concerns Mon-Fri 6a-5p please page [phone]. After 5pm and on Weekends and Holidays, please page [phone] if in ICU or [phone] if on RNF. 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 NG tube utilized for decompression. Pt did not tolerate Gastrografin on 09/21/22 with NG returned to [facility]. Today, Ms. Andrea scheduled for surgery. VS stable overnight. Tolerating diet DIET NPO Nausea Yes Emesis No Flatus No Bowel movement No Pain Controlled Yes Ambulating No OBJECTIVE: Vitals: Temp (24hrs), Av ?C (98.6 ?F), Min:36.6 ?C (97.9 ?F), Max:37.4 ?C (99.3 ?F) BP 170/87 Pulse 108 Temp 37.4 ?C (99.3 ?F) (Oral) Resp 20 Ht 160 cm (5' 3 ) Wt 48.5 kg (106 lb 14.8 oz) LMP 08/16/2002 SpO2 99% BMI 18.94 kg/m? O2 Therapy: Nasal Cannula IANDO: Date 09/22/22699 - 09/23/22 0609/23/22699 - 09/24/22 0659 Shift 6727-2647 4373-1683 0170-7834 24 Hour Total 8096-5886 3095-8658 8114-9981 24 Hour Total INTAKE PO 0 0 PO 0 0 IV 069 452 4920 1900 1900 Volume (mL) (cefTRIAXone iv piggyback 2 g in dextrose (iso-osmotic) 50 mL (ROCEPHIN)) 50 50 Volume (mL) (lactated ringers iv infusion) 056 720 9612 Volume (mL) (lactated ringers iv infusion) 250 250 Volume (mL) (lactated ringers iv infusion) 1600 1600 Shift Total 707 088 2300 1900 1900 OUTPUT Urine 1000 1650 2650 250 250 Void (ml) 1000 1650 2650 0 0 OR Urine Output 250 250 Tubes 350 350 0 0 Output (GI Feed 09/20/22 0228 Admission to Hospital Gastric Left Naris) 350 350 0 0 Blood 10 10 Estimated Blood loss 10 10 Shift Total 1350 1650 3000 260 260 Weight (kg) 43.1 43.1 48.5 48.5 48.5 48.5 48.5 48.5 MEDICATIONS Current Facility-Administered Medications Medication Dose Route Frequency polyethylene glycol 3350 17 g packet 17 g ORAL DAILY prochlorperazine 10 mg tab(s) (COMPAZINE) 10 mg ORAL q 6 H PRN HYDROmorphone (PWD) 32 mg, baclofen 100 % 2,000 mcg, bupivacaine 30 mg patient's own pump - MAR placeholder INTRATHECAL CONTINUOUS gabapentin 800 mg cap(s) (NEURONTIN) 800 mg ORAL q 6 H HYDROmorphone (PF) 1 mg injection (DILAUDID) 1 mg INTRAVENOUS q 3 H PRN sulfamethoxazole-trimethoprim 800-160 mg 1 tablet (BACTRIM DS) 1 tablet ORAL q 12 H cloNIDine HCl 0.2 mg tab(s) (CATAPRES) 0.2 mg ORAL AT BEDTIME traZODone 100 mg tab(s) (DESYREL) 100 mg ORAL AT BEDTIME DULoxetine 90 mg cap(s) (CYMBALTA) 90 mg ORAL DAILY lactated ringers iv infusion 125 mL/hr INTRAVENOUS CONTINUOUS ondansetron 4 mg tab(s) (ZOFRAN) 4 mg ORAL q 6 H PRN Or ondansetron (PF) 4 mg injection (ZOFRAN) 4 mg INTRAVENOUS q 6 H PRN enoxaparin 40 mg injection (LOVENOX) 40 mg SUBCUTANEOUS DAILY NaCl 0.9% iv flush bag 20 mL INTRAVENOUS PRN acetaminophen 975 mg tab(s) (TYLENOL) 975 mg ORAL q 8 H Labs: Recent Labs 09/23/22 0521 09/22/22 1810 09/22/22 0118 09/20/22 2359 NA 137 139 < > 133* K 3.5* 2.9* < > 3.4* CHLOR 100 96* < > 96* CO2 23 22 < > 27 BUN 5* 6* < > 21 CREAT 0.30* 0.33* < > 0.58 GLUC 60* 70* < > 73* ANION 14 21* < > 10 CA 7.9* 8.7 < > 8.2* MG -- 1.7 -- -- P -- 1.4* -- -- ALB -- 3.7* -- -- AST -- 19 -- -- ALT -- 10 -- -- ALKPHOS -- 45 -- -- TBILI -- 0.4 -- -- WBC 4.88 5.92 < > 5.11 HB 11.0* 10.8* < > 9.5* HCT 32.7* 32.8* < > 28.7* PLT 219 193 < > 142* LACT -- 0.8 -- 0.8 < > = values in this interval not displayed. Physical Exam: GENERAL: No distress, Alert NEURO: AANDOx3, CN II-XII grossly intact HEENT: normocephalic, atraumatic LUNGS: Unlabored breathing, equal chest rise bilaterally CARDIAC: Regular rate, warm and well perfused distal extremities ABDOMEN: Soft, moderate distention with diffuse ttp, no rebound or guarding. EXTREMITIES: GARCIA, No deformities, No edema SKIN: Skin color, texture, turgor normal, No rashes or lesions ASSESSMENT AND PLAN: Assessment Active Hospital Problems Diagnosis Date Noted SBO (small bowel obstruction) ([facility]) 09/20/2022 Pressure injury of coccygeal region, stage 2 ([facility]) 09/22/2022 Pressure injury of perianal region, stage 2 ([facility]) 09/22/2022 Paralysis ([facility]) 09/20/2022 Encounter for pain management 09/20/2022 Moderate protein-calorie malnutrition ([facility]) 09/20/2022 Hospital Course/Operations/Procedures: * No surgery found * Assessment/Plan: 72 year old female with PMH CAD, CHF, (more content not included)... [facility] 09-22-2022 Note HNO ID: [id number] Author: Jovita Jama RN Service: Care Management Author Type: Registered Nurse Type: Care Mgt Initial Assessment Filed: 09/22/2022 3:27 PM Note Text: CARE MANAGEMENT: ASSESSMENT AND DISCHARGE PLAN SERVICE DATE: September 22, 2022 SERVICE TIME: 1:08 PM PCP: Cara Arce MD (Confirmed with patient) Primary Contact: Extended Emergency Contact Information Primary Emergency Contact: EmreBela pickering Mobile Relation: Daughter Secondary Emergency Contact: [place]Elie Mobile Relation: Daughter Admission Status: Inpatient Insurance Provider: MEDICARE A AND B; +Rx coverage Discharge Planning requested by: Per Department Practice Potential Transition Plans To Be Determined Advance Directives Current Advance Directive: Health Care Power of Welding Machine Operator Helper Arc;Living Will In Chart: No Encouraged patient to bring in copies of her advance directives Current Living Arrangements and Support Lives with: Children Type of Residence: Private Residence (House) Does the patient have to climb stairs at home?: No Support: Family members How do you manage to accomplish the following: Independent: Bathe/Shower;Dress;Going to the bathroom Needs Assistance: Meals/Meal Prep;Medication Management;Transportation to appointments/community Current Services/Equipment Current Post-Acute Service(s): DME, Skilled Home Care Current DME Type: Wheelchair-manual, Hospital bed, Shower seat, Ostomy supplies Discharge Planning Patient Goal(s): General wellness, Increase strength, Less pain [place] of Choice Explained: [place] of [place] Given: Yes Level of Care Discussed: Nursing Home Facility If SNF placement is needed, due to past experience patient's preference is: [facility] Are you interested in bedside delivery of your medications? Yes Discharge Planning Participant(s): Patient;Family Caregiver Assessment: Caregiver is ready, willing and able to meet the patient's needs as recommended by the inter-professional team: Yes Name of Caregiver: Bela/ Daughter Transport at Discharge: Transportation Arrangements: To Be Determined Needs Prior to Discharge: Needs Prior to Discharge: To Be Determined;OT/PT Evaluation Post-Acute Discharge Plan: Chart reviewed. Small bowel obstruction. NPO. NG. UTI. Umbilical stoma. Acute on chronic pain. Pain management following. Intrathecal pain pump provided by [employer]. Spoke with patient and patient's daughter Bela at the bedside. Explained care management role. Patient from home with her daughter Bela prior to admission. 1 level home with a ramp in place. Lower extremity paralysis. Current DME: Wheelchair, Hospital bed; Ostomy Supplies and Shower Seat. Independent with personal care. Needs minimal assistance with IADLs. For transportation, patient utilizes family or public transportation as needed. At baseline patient manages her own stoma and pain pump. Transitional/discharge planning needs to be determined. Will follow. SIGNATURE: Jovita Jama RN PATIENT NAME: Aleena Andrea DATE: September 22, 2022 TIME: 1:08 PM CONTACT #: [id number] [facility] 09-22-2022 Note HNO ID: [id number] Author: Beth Hunter APRN.AUTOMOTIVE MACHINIST APPRENTICE Service: General Surgery Author Type: Nurse Specialist Type: Progress Notes Filed: 09/22/2022 10:36 AM Note Text: Emergency General Surgery Progress Note SERVICE DATE: September 22, 2022 Emergency General Surgery Service Pager: For questions or concerns Mon-Fri 6a-5p please page [phone]. After 5pm and on Weekends and Holidays, please page [phone] if in ICU or [phone] if on RNF. 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 NG tube utilized for decompression. Pt did not tolerate Gastrografin on 09/21/22 with NG returned to [facility]. Today, Ms. Andrea reports nausea overnight after GG, even with NG in place (1200 cc output). Sts no flatus or BM. C/o increasing pain, diffusely TTP with abdominal distention. Per note 09/21 - always in some degree of pain d/t h/o myelitis. Tolerating diet DIET NPO Nausea Yes Emesis No Flatus No Bowel movement No Pain Controlled Yes Ambulating No OBJECTIVE: Vitals: Temp (24hrs), Av.8 ?C (98.3 ?F), Min:36.3 ?C (97.3 ?F), Max:37.2 ?C (99 ?F) BP 159/80 Pulse 85 Temp 36.6 ?C (97.9 ?F) (Oral) Resp 18 Ht 160 cm (5' 3 ) Wt 43.1 kg (95 lb) LMP 08/16/2002 SpO2 96% BMI 16.83 kg/m? O2 Therapy: Room Air IANDO: Date 09/21/22 07 - 09/22/22 0659 09/22/22 07 - 09/23/22 0659 Shift 4135-4701 8129-9757 6495-9358 24 Hour Total 0370-4767 6597-2182 8882-4042 24 Hour Total INTAKE PO 0 0 PO 0 0 Supplements (mL) 0 0 Shift Total 0 0 OUTPUT Urine 500 250 750 600 600 Void (ml) 500 250 750 600 600 Tubes 15 1200 1215 Output (GI Feed 09/20/22 0228 Admission to Hospital Gastric Left Naris) 15 1200 1215 Shift Total 15 500 1450 1965 600 600 Weight (kg) 43.1 43.1 43.1 43.1 43.1 43.1 43.1 43.1 MEDICATIONS Current Facility-Administered Medications Medication Dose Route Frequency prochlorperazine 10 mg tab(s) (COMPAZINE) 10 mg ORAL q 6 H PRN sulfamethoxazole-trimethoprim 800-160 mg 1 tablet (BACTRIM DS) 1 tablet ORAL q 12 H cloNIDine HCl 0.2 mg tab(s) (CATAPRES) 0.2 mg ORAL AT BEDTIME traZODone 100 mg tab(s) (DESYREL) 100 mg ORAL AT BEDTIME DULoxetine 90 mg cap(s) (CYMBALTA) 90 mg ORAL DAILY lactated ringers iv infusion 125 mL/hr INTRAVENOUS CONTINUOUS ondansetron 4 mg tab(s) (ZOFRAN) 4 mg ORAL q 6 H PRN Or ondansetron (PF) 4 mg injection (ZOFRAN) 4 mg INTRAVENOUS q 6 H PRN enoxaparin 40 mg injection (LOVENOX) 40 mg SUBCUTANEOUS DAILY NaCl 0.9% iv flush bag 20 mL INTRAVENOUS PRN gabapentin 300 mg cap(s) (NEURONTIN) 300 mg ORAL q 8 H oxyCODONE 15 mg immediate release tablet (ROXICODONE) 15 mg ORAL q 4 H PRN acetaminophen 975 mg tab(s) (TYLENOL) 975 mg ORAL q 8 H Labs: Recent Labs 09/22/22 0118 09/20/22 2359 NA 138 133* K 3.4* 3.4* CHLOR 96* 96* CO2 23 27 BUN 12 21 CREAT 0.43* 0.58 GLUC 66* 73* ANION 19* 10 CA 8.7 8.2* WBC 4.63 5.11 HB 10.1* 9.5* HCT 30.7* 28.7* PLT 171 142* LACT -- 0.8 Physical Exam: GENERAL: No distress, Alert NEURO: AANDOx3, CN II-XII grossly intact HEENT: normocephalic, atraumatic LUNGS: Unlabored breathing, equal chest rise bilaterally CARDIAC: Regular rate, warm and well perfused distal extremities ABDOMEN: Soft, moderate distention with diffuse ttp, no rebound or guarding. 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 s/p laparoscopic augmentation cystoplasty with ileoileal catheterizable stoma at the umbilicus for neurogenic bladder presenting with nausea, vomiting, abdominal pain and CT AP findings concerning for SBO as well as constipation Small bowel obstruction, likely 2/2 adhesions vs constipation Large stool burden in large bowel - NPO/IVF - NG LIWS - Gastrografin contrast study 1030 am - 12-hr KUB 0100 with dilated loops SB, difficult to tell if contrast present - NG output 1300 cc gastric fluid - Monitor abdominal exam - Pain/nausea control - DVT ppx: Lovenox, SCD's Hypotension - VSS today - Received bolus PRN - Hold Catapress as needed - Monitor for n (more content not included)... [facility] 09-21-2022 Note HNO ID: [id number] Author: Lorrie Aleman APRN.LINE HAUL OWNER OPERATOR Service: General Surgery Author Type: Nurse Practitioner Type: Progress Notes Filed: 09/21/2022 12:20 PM Note Text: Emergency General Surgery Progress Note SERVICE DATE: September 21, 2022 Emergency General Surgery Service Pager: For questions or concerns Mon-Fri 6a-5p please page [phone]. After 5pm and on Weekends and Holidays, please page [phone] if in ICU or [phone] if on RNF. 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 NG tube utilized for decompression. Today, Ms. Andrea reports intermittent nausea overnight, unsure if NG tube decompression helped or not. - 800 ml/ 24 hours, 50 ml overnight (brown). - Passed a little gas, no BM. - Reports belly is tender, always in some degree of pain d/t h/o myelitis. Did get solid sleep last night, feeling better. BP ran low last night, received a 500 ml bolus yesterday evening for HR low 100's. Received a 1 L bolus overnight for hypotension (82/40) - Denies dizziness or SOB. Tolerating diet DIET NPO Nausea Yes Emesis No Flatus Yes Bowel movement No Pain Controlled Yes Ambulating No OBJECTIVE: Vitals: Temp (24hrs), Av.4 ?C (97.6 ?F), Min:36 ?C (96.8 ?F), Max:36.6 ?C (97.9 ?F) BP 127/62 Pulse 84 Temp 36.5 ?C (97.7 ?F) (Oral) Resp 16 Ht 160 cm (5' 3 ) Wt 43.1 kg (95 lb) LMP 08/16/2002 SpO2 96% BMI 16.83 kg/m? O2 Therapy: Room Air IANDO: Date 09/20/22 07 - 09/21/22 0659 09/21/22 07 - 09/22/22 0659 Shift 1841-2984 2335-7552 6831-1504 24 Hour Total 8298-0288 2104-8943 9502-9331 24 Hour Total INTAKE IV 015 772 7699 Volume (mL) (NaCl 0.9% iv bolus 500 mL) 500 500 Volume (mL) (lactated ringers iv infusion) 646 773 7258 Shift Total 356 610 7896 OUTPUT Urine 250 350 600 Void (ml) 250 350 600 Tubes 650 100 200 950 15 15 Output (GI Feed 09/20/22 0228 Admission to Hospital Gastric Left Naris) 650 100 200 950 15 15 Shift Total 650 278 240 9985 15 15 Weight (kg) 43.1 43.1 43.1 43.1 43.1 43.1 43.1 43.1 MEDICATIONS Current Facility-Administered Medications Medication Dose Route Frequency diatrizoate meglumine AND sodium 100 mL oral/rectal solution (GASTROGRAFIN) 100 mL ORAL ONCE cloNIDine HCl 0.2 mg tab(s) (CATAPRES) 0.2 mg ORAL AT BEDTIME traZODone 100 mg tab(s) (DESYREL) 100 mg ORAL AT BEDTIME DULoxetine 90 mg cap(s) (CYMBALTA) 90 mg ORAL DAILY lactated ringers iv infusion 125 mL/hr INTRAVENOUS CONTINUOUS ondansetron 4 mg tab(s) (ZOFRAN) 4 mg ORAL q 6 H PRN Or ondansetron (PF) 4 mg injection (ZOFRAN) 4 mg INTRAVENOUS q 6 H PRN enoxaparin 40 mg injection (LOVENOX) 40 mg SUBCUTANEOUS DAILY NaCl 0.9% iv flush bag 20 mL INTRAVENOUS PRN gabapentin 300 mg cap(s) (NEURONTIN) 300 mg ORAL q 8 H oxyCODONE 15 mg immediate release tablet (ROXICODONE) 15 mg ORAL q 4 H PRN acetaminophen 975 mg tab(s) (TYLENOL) 975 mg ORAL q 8 H Labs: Recent Labs 09/20/22 2359 09/20/22 0456 NA 133* 132* K 3.4* 3.9 CHLOR 96* 91* CO2 27 28 BUN 21 28* CREAT 0.58 0.77 GLUC 73* 108* ANION 10 13 CA 8.2* 9.8 WBC 5.11 10.90 HB 9.5* 12.6 HCT 28.7* 36.2 PLT 142* 190 LACT 0.8 -- Physical Exam: GENERAL: No distress, Alert NEURO: AANDOx3, CN II-XII grossly intact HEENT: normocephalic, atraumatic LUNGS: Unlabored breathing, equal chest rise bilaterally CARDIAC: Regular rate, warm and well perfused distal extremities ABDOMEN: Soft, mild distention, mild ttp, no rebound or guarding. 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 [facility] 09-21-2022 Note HNO ID: [id number] Author: Edward Lubin DO Service: General Surgery Author Type: Resident Type: Plan of Care Filed: 09/20/2022 11:54 PM Note Text: Was paged originally due to blood pressure of 82/40. At that time per report patient was into asymptomatic. A 1 L bolus was given. A recheck after the bolus showed blood pressure of 87/39. I went to see the patient. She denies any lightheadedness blurry vision. She denies any changes in her abdominal pain. She denies any nausea or vomiting. Denies any fevers or chills. She is resting comfortably in bed. Plan to draw morning labs and add a lactate. Edward Lubin DO PGY-3 09/20/2022 11:54 PM [facility] 09-20-2022 Note HNO ID: [id number] Author: Rowan Gallagher RN Service: Nursing Author Type: Registered Nurse Type: Nursing Progress Note Filed: 09/20/2022 12:46 PM Note Text: NG advanced 5 cm per verbal order from Dr. Kevin [facility] 09-20-2022 Note HNO ID: [id number] Author: Estelle Izquierdo RPh Service: Pharmacy Author Type: Pharmacist Type: Progress Notes Filed: 09/20/2022 8:57 AM Note Text: PHARMACY PROGRESS NOTE Patient Name: Aleena Andrea Admission Date: @ADMITDT@ Date of Consult: 09/20/2022 Time of Consult: 8:56 AM In accordance with the inpatient pharmacy consult agreement the following medication changes have been made: Renal dosing Discontinue Gabapentin 800mg 4 times daily, change to Gabapentin 300mg every 8 hours per renal dosing guidelines. Creatinine (mg/dL) Date Value 09/20/2022 0.77 CrCl: ~45 mL/min Pharmacy will continue to monitor patient for continued eligibility of these medication changes. Please call with any questions or concerns. SIGNATURE: Estelle Izquierdo RPh DATE/TIME: 09/20/2022 8:56 AM [facility] 03-19-2021 Miscellaneous Notes Called patient and spoke with her. She is agreeable to increase to 50 mg. She would like to change her next video visit, she will stay in person for now and then call us if she wants to change to video. Let's go ahead and increase to the 50 mg of amitriptyline at bedtime to see if she has any benefit. If there is not benefit at that dose, then I do not recommend further increases. Received a voicemail from patient stating she is calling to update Dr Frances that she is taking the amitriptyline and it is doing nothing for her pain. She has 50 mg at home, should she take these or go ahead and refill her 25 mg that she has on hand. Or should she stay at 25 mg. Call back [phone]. Called and spoke with Rosibel at [facility] and cancelled prescription for the amitriptyline. Called and spoke with pt she stated understanding on the increase with the amitriptyline. She asked for the new prescription to be sent over to [facility] in [place] instead of the [facility]. Will que up new prescription and will call and cancel old prescription. I recommend increasing amitriptyline to 25 mg by mouth daily at bedtime. I sent a new script. Please let Aleena know. Pt LVM stating that she started the amitriptyline and was advised to call the office to let us know if it is working or not. Pt stated that she hasn't noticed a difference since starting the medication. Please advise on next steps. documented in this encounter [facility] 03-18-2021 Miscellaneous Notes Let's go ahead and increase to the 50 mg of amitriptyline at bedtime to see if she has any benefit. If there is not benefit at that dose, then I do not recommend further increases. Received a voicemail from patient stating she is calling to update Dr Frances that she is taking the amitriptyline and it is doing nothing for her pain. She has 50 mg at home, should she take these or go ahead and refill her 25 mg that she has on hand. Or should she stay at 25 mg. Call back [phone]. Called and spoke with Rosibel at [facility] and cancelled prescription for the amitriptyline. Called and spoke with pt she stated understanding on the increase with the amitriptyline. She asked for the new prescription to be sent over to [facility] in [place] instead of the [facility]. Will que up new prescription and will call and cancel old prescription. I recommend increasing amitriptyline to 25 mg by mouth daily at bedtime. I sent a new script. Please let Aleena know. Pt LVM stating that she started the amitriptyline and was advised to call the office to let us know if it is working or not. Pt stated that she hasn't noticed a difference since starting the medication. Please advise on next steps. documented in this encounter [facility] 03-18-2021 Miscellaneous Notes Received a voicemail from patient stating she is calling to update Dr Frances that she is taking the amitriptyline and it is doing nothing for her pain. She has 50 mg at home, should she take these or go ahead and refill her 25 mg that she has on hand. Or should she stay at 25 mg. Call back [phone]. Called and spoke with Rosibel at [facility] and cancelled prescription for the amitriptyline. Called and spoke with pt she stated understanding on the increase with the amitriptyline. She asked for the new prescription to be sent over to [facility] in [place] instead of the [facility]. Will que up new prescription and will call and cancel old prescription. I recommend increasing amitriptyline to 25 mg by mouth daily at bedtime. I sent a new script. Please let Aleena know. Pt LVM stating that she started the amitriptyline and was advised to call the office to let us know if it is working or not. Pt stated that she hasn't noticed a difference since starting the medication. Please advise on next steps. documented in this encounter [facility] 01-24-2021 Miscellaneous Notes Called and spoke with Rosibel at [facility] and cancelled prescription for the amitriptyline. Called and spoke with pt she stated understanding on the increase with the amitriptyline. She asked for the new prescription to be sent over to [facility] in [place] instead of the [facility]. Will que up new prescription and will call and cancel old prescription. I recommend increasing amitriptyline to 25 mg by mouth daily at bedtime. I sent a new script. Please let Aleena know. Pt LVM stating that she started the amitriptyline and was advised to call the office to let us know if it is working or not. Pt stated that she hasn't noticed a difference since starting the medication. Please advise on next steps. documented in this encounter [facility] 10-04-2020 Instructions Analilia Oconnor, - 10/04/2020 2:26 PM EDT 1. For pain management, I recommend the following: - Decrease gabapentin back to 800 mg four times a day - Continue cymbalta (duloxetine) 60 mg twice daily for at least 6 weeks. If no benefited noted, we will discuss tapering off the cymbalta and adding the following: A. amitriptyline (elavil) 10 mg at bedtime. 2. I recommend discussing with pain management possible placement of a pain stimulator. Follow up in [address] Frances documented in this encounter [facility] 10-04-2020 History of Present illness Narrative [facility] Follow Up Note 10/04/2020 PATIENT REPORTED DISEASE SUMMARY Ethnicity Dominant Hand Right Employment Status Retired Primary Neurological Diagnosis Idiopathic Thoracic Transverse Myelitis Symptom Onset 2000 CHIEF COMPLAINT Neuroimmunologic follow up from 09/10/2020 CONTEMPORARY HISTORY Aleena Andrea reports no new or worsening neurological symptoms since her last clinic visit. Unfortunately, she has not noticed improvement in her neuropathic pain with increasing her bedtime dose of gabapentin. She increased her duloxetine from 60 mg daily to 60 mg BID approximately 10 days ago and has not noted any improvement in pain. She states that her pain is a 7/10 in the morning, however it gradually gets worse throughout the day. Ice helps in the morning. She saw her pain specalist right after her last appointment who was agreeable with our plan. Energy levels are generally stable / unchanged. Mood is good. Cognition is good. Bladder is stable / unchanged. MRI cervical and thoracic spine reviewed. OTHER RELEVANT HISTORY No flowsheet data found. No flowsheet data found. [facility] [place] ROS - 10/04/20 1322 General Change in weight No Fever No Chills No Night Sweats No Cough No Shortness of Breath No Joint pain / swelling No Muscle pain / cramps No Chest pain No Palpitations No Nausea / Vomiting No Neurologic Double vision No Blurred / decreased vision No Difficulty swallowing No Difficulty with speech No Numbness / tingling No Painful skin sensations No Muscle weakness No Heat sensitivity No Motor fatigue No Incoordination/ poor balance Yes Difficulty walking Yes Recent Falls No L'hermitte No Difficulty with thinking and memory No Pathologic fatigue No Depression No Anxiety No Urinary urgency No Urinary frequency No Urinary retention / hesitancy No Recent Urinary Tract Infections No Bowel complaints No Sexual Dysfunction No Poor sleep No Headaches No Recent Seizures No 14 systems reviewed and negative except for as noted above. Past medical, surgical, social & family history reviewed in the electronic medical record. She has a past medical history of CAD (coronary artery disease), CHF (congestive heart failure) (HCC), Depression, Idiopathic transverse myelitis (HCC), Migraine, Neurogenic bladder, and Osteoporosis. She has a past surgical history that includes tonsillectomy; Insert Pain Pump (Morphine/Dilaudid) (07/2014); and Catheter Insertion Suprapubic. She reports that she has never smoked. She has never used smokeless tobacco. She reports previous alcohol use. She reports that she does not use drugs. Her family history includes Colon cancer in her father and sister; Heart disease in her mother; Osteoporosis in her mother. Her Allergies Allergen Reactions Prialt [Ziconotide] She has a current medication list which includes the following prescription(s): cephalexin, clonidine hcl, duloxetine, gabapentin, hydromorphone hcl/pf, naproxen, oxycodone, and trazodone. GENERAL PHYSICAL EXAMINATION Vital Signs: Blood pressure 147/69, pulse 69, height 5' 3 , weight 50 kg (110 lb 4.8 oz). General Appearance: in no apparent distress, well nourished, conversant, cooperative Eyes: Anicteric sclerae. Moist conjunctivae. No lid edema noted. HENT: Head atraumatic, normocephalic. Oropharynx clear. Moist mucous membranes. Neck/ Thyroid:trachea midline. Supple. No massess. No thyromegaly. Lungs: Normal respiratory effort. No intercostal retractions. No dyspnea during conversation. Abdomen: soft, non-distended Extremities: no clubbing, cyanosis, pedal edema, ulcer nor wound noted. Skin: warm, dry, no rash, no ecchymoses, no petechiae noted Pysch: normal mood, behavior, speech, dress, and thought processes MULTIPLE SCLEROSIS PERFORMANCE TEST Neurological Testing VALUE Visual acuity (2.5% low contrast) OD: 20/80 OS: 20/100 -2 90 second Symbol Digit Modality Test 46 Nine Hole Peg Test Right 1st: 27.35 Right 2nd: Left 1st: 23.74 Left 2nd: Timed 25 [address] Walk Trial 1: pt unable to ambulate Trial 2: pt unable to ambulate TRADITIONAL NEUROLOGICAL EXAMINATION MENTAL STATUS: intact to casual conversation. Normal language function regarding fluency and comprehension. Normal mood and affect. CRANIAL NERVES: CN II: Visual mar full to confrontation CN III, IV, : Eyes are aligned in primary gaze. Extra ocular movements intact without nystagmus. Normal convergence. No RILEY noted. No ptosis noted. CN V, VII: Sensation and strength are intact and symmetric. CN VIII: Hearing intact to finger rub bilaterally CN IX, X: Palate elevated symmetrically. No dysarthria noted. CN XI: Sternocleidomastoid and trapezius strength is full bilaterally. CN XII: The tongue protrudes in the midline. No fasciculation or atrophy appreciated. PYRAMIDAL: Pronator drift not noted. Manual Muscle Testing: D B T WE FF IO HF KF KE DF PF Right 5 5 5 5 5 5 0 0 0 0 0 Left 5 5 5 5 5 5 0 0 0 0 0 Modified Georgia Score: B T Hip add KF KE DF PF Right 0 0 0 0 0 0 0 Left 0 0 0 0 0 0 0 SENSORY: Normal LT in UE's bilaterally; no sensation waist down COORDINATION: Normal FNF bilaterally GAIT: Non-ambulatory PARACLINICAL DATA (I have personally reviewed the images below) MRI Cervical Spine (I have independently reviewed the following images): Study Date: 10/04/2020. Comparison Study Date: n/a. Study Location:[facility], [place] protocol used: yes. Scanner Strength: 3T, Image Quality: excellent. Findings: T2 bright lesions: no T1 giovana + lesions: no Cord atrophy: not noted Significant DDD / HNP: no MRI Cervical Spine Impression: Limited due to motion artifact, however no apparent abnormal cord signal or enhancement noted MRI Thoracic Spine (I have independently reviewed the following images): Study Date: 10/04/2020. Comparison Study Date: n/a. Study Location:[place], [place] protocol used: yes. Scanner Strength: 3T, Image Quality: excellent. Findings: T2 bright lesions: no T1 giovana + lesions: no Cord atrophy: severe, noted at T10-T11 Significant DDD / HNP: no MRI Thoracic Spine Impression: Severe cord atrophy noted at T10-T11 with iron deposits. No abnormal cord signal or enhancement noted. IMPRESSIONS Aleena Andrea is a pleasant 70 y.o. female with history of Idiopathic Thoracic Transverse Myelitis who presents for follow up evaluation. Updated imaging of cervical spine is limited due to motion artifact, however appears unremarkable. MRI Thoracic spine demonstrates significant cord atrophy at T10, but otherwise demonstrates no abnormal cord signal or enhancement. Prior records were not able to be obtained to review prior evaluation obtained to rule out potential etiology of transverse myelitis. Primary concerns continue to include difficult to control neuropathic pain. I recommend the following plan: PLAN 1. For neuropathic pain management, I recommend the following: - Decrease gabapentin back to 800 mg four times a day as higher doses provided no benefit. - Continue cymbalta (duloxetine) 60 mg twice daily for at least 6 weeks. If no benefit noted, we will discuss tapering off the cymbalta and adding amitriptyline (elavil) 10 mg nightly at bedtime 2. I recommend discussing with pain management possible placement of a pain stimulator. 3. We will obtain laboratories to evaluate for potential etiology of transverse myelitis, including NMO IgG and MOG IgG. PLAN RELATED TO CLINIC FOLLOW UP 1. I will schedule a follow-up visit in [address] Frances. 2. Please arrive 30 minutes before your appointment to allow time to complete paperwork and MS specific testing prior to seeing your MS specialist. If you arrive late you will be asked to reschedule your visit. 3. Please sign up for the [employer] patient portal. [employer] provides assess to your medical record and test results, allows you to communicate with your care providers, and allows you to complete patient questionnaires prior to each clinic visit. 4. When your testing is completed, your MS care team will review all results and contact you if a finding requires follow up before your next visit. Otherwisee, we will discuss your test results [id number] at your next clinic visit. Many of your testing results, however, can be reviewed online through [employer]. PATIENT AND CAREGIVER EDUCATION I spent 30 minutes face to face with the patient today. Over half the time was spent counseling regarding her symptoms and clinical presentation as well as coordinating care. Thank you very much for allowing me to participate in this patient's care and please do not hesitate to contact me with questions or concerns. Sincerely, Analilia Oconnor DO, MPH Neuroimmunology Fellow ([email or web address]) Neuroimmunology & Multiple Sclerosis [facility] [address], [place], [place] [email or web address] I have seen and examined patient independently and discussed with them all pertinent findings. I have personally reviewed all available clinical data related to today's encounter, including but not limited to laboratory studies, radiology images and reports, and outside medical records. I was physically present and supervised any procedures. I have been fully involved in formulation of the above-documented assessment and plan and it has been thoroughly discussed with Dr. Analilia Oconnor, neuroimmunology fellow. Gi Frances MD, MPH System Chief Neuroimmunology & Multiple Sclerosis [facility] [address] [place] [address] Rd[address], [place], [place] [email or web address] documented in this encounter [facility] 09-10-2020 Instructions Analiila Oconnor, DO - 09/10/2020 1:27 PM EDT Aleena Andrea is a pleasant 70 y.o. Right-handed female referred for evaluation of and treatment recommendations for Idiopathic Thoracic Transverse Myelitis. I recommend the following plan: PLAN 1. We will request initial 2001 MRI imaging and neurology records from [facility]. 2. Given persistent pain despite multiple pharmacologic therapies, I recommend obtaining MRI Cervical Spine and Thoracic Spine w/wo contrast on 3T scanner to rule out recurrent inflammatory activity. 3. I recommend continuing symptomatic medications as previously prescribed with the following exception: - Increase Gabapentin to 800 mg TID and 1200 mg at bedtime. - After 2 weeks, can consider increasing Duloxetine to 60 mg BID. PLAN RELATED TO CLINIC FOLLOW UP 1. I will schedule a follow-up visit in 1 month with MRI C/T Spine. 2. Please arrive 30 minutes before your appointment to allow time to complete paperwork and specific testing prior to seeing your specialist. If you arrive late you may not be able to be seen that day and may need to reschedule your visit. 3. Please sign up for the [employer] patient portal. [employer] gives you controlled access to the same [facility] medical records your [facility] care team use, via browser or mobile [email or web address] (for iOS and Android). Its allows you to review some of your testing results, and provides you with a communication link to your care providers. 4. Many of your test results can be reviewed online at any time through [employer]. Your MS care team will review all results, but will only contact you if a finding requires urgent medical attention. Your Care team will always discuss your test results with you [id number] at your next clinic. I spent 90 minutes face to face with the patient today. Over half the time was spent counseling regarding her symptoms and clinical presentation as well as coordinating care. Thank you very much for allowing me to participate in this patient's care and please do not hesitate to contact me with questions or concerns. Sincerely, Analilia Oconnor DO, MPH Neuroimmunology Fellow ([email or web address]) Neuroimmunology & Multiple Sclerosis [facility] [place] [address], [place], [place] [email or web address] documented in this encounter [facility] 09-10-2020 History of Present illness Narrative [facility] SCLEROSIS OPHIEM NEW CONSULTATION 09/10/2020 I had the pleasure of evaluating Aleena Andrea in initial outpatient neurologic consultation at [facility] [place] today, 09/10/2020. As you know, she is a pleasant 70 y.o. Right-handed female referred by Dr. Beck for evaluation of and treatment recommendations for Transverse Myelitis. She is accompanied today by her friend who helped participate in her history. In preparation for today's consultation I have personally reviewed hard copies of neuroimaging studies, relevant clinic notes and lab tests, as well as the [facility] [place] new patient questionnaire. Chief Complaint: Transverse Myelitis HISTORY History of Present Illness: Aleena reports that in July 2000, she had Lasik surgery on her eyes. When her woke her up, she felt flu like. She went back to bed and that evening her legs started hurting very bad. She was unable to get out of bed due to the pain. She ended up going to the ED at [facility] and states that within a couple of hours she was paralyzed from the waist down. She received plasmapheresis. MRI was consistent with transverse myelitis in the thoracic spine; 2 weeks later a repeat MRI was obtained and showed hemorrhage. LP was reportedly negative for MS. MRI brain was reportedly non acute. She is currently looking for better pain management. She describes a constant 8/10 pain in her hips down her legs. She describes a strong tingling sensation. She does have a pain pump with Dilaudid (32 mg) and baclofen (2000 mc), and bupicacaine (30 Mg). She also takes oxycodone 10 mg QID, and gabapentin 800 mg QID, naproxen 375 mg BID, trazodone 100 mg at bedtime, duloxetine 60 mg AM (2 months at this dose). Pain management is managing the above. She has tried lyrica in the past, however had to discontinue secondary to onset of double vision with use. At night she describes a pulsing pain in her legs. Typically, she has a deep tingling sensation that starts as a wide band around her hips and radiates down into her legs. She denies significant muscle spasms due to the ITB baclofen. Laying on ice helps with the pain but does take it away. She states that Gabapentin seems to have the most benefit, because when she is late taking the medication her symptoms worsen. She was recently started on duloxetine. She takes Clonidine 0.2 mg for sleep She self-caths for neurogenic bladder. She has frequent UTIs. She does not follow with urology. Her PCP just started her on a prophylatic antibiotic, cephalexin 250 mg q AM. She has not noticed worsening of her pain with her UTIs. She has ended up in the hospital several times with sepsis due to her UTIs. Because she has no sensation from the waist down, she often is not aware of a UTI unless there is change in smell of her urine or change in mentation. PATIENT REPORTED DISEASE SUMMARY Ethnicity Dominant Hand Right Employment Status Retired Primary Neurological Diagnosis Idiopathic Thoracic Transverse Myelitis Symptom Onset 2000 No flowsheet data found. Review of systems: [facility] - 09/10/20 1103 General Change in weight No Fever No Chills No Night Sweats No Cough No Shortness of Breath No Joint pain / swelling No Muscle pain / cramps No Chest pain No Palpitations No Nausea / Vomiting No Neurologic Double vision No Blurred / decreased vision No Difficulty swallowing No Difficulty with speech No Numbness / tingling No Painful skin sensations No Muscle weakness No Heat sensitivity No Motor fatigue No Incoordination/ poor balance No Difficulty walking Yes pt doesn't ambulate Recent Falls No L'hermitte No Difficulty with thinking and memory No Pathologic fatigue No Depression No Anxiety No Urinary urgency No Urinary frequency No Urinary retention / hesitancy No Recent Urinary Tract Infections No Bowel complaints No Sexual Dysfunction No Poor sleep No Headaches No Recent Seizures No Allergies Allergen Reactions Prialt [Ziconotide] She has a current medication list which includes the following prescription(s): cephalexin, clonidine hcl, gabapentin, hydromorphone hcl/pf, naproxen, oxycodone, trazodone, and duloxetine. She has a past medical history of CAD (coronary artery disease), CHF (congestive heart failure) ([facility]), Depression, Idiopathic transverse myelitis (HCC), Migraine, Neurogenic bladder, and Osteoporosis. She has a past surgical history that includes tonsillectomy; Insert Pain Pump (Morphine/Dilaudid) (07/2014); and Catheter Insertion Suprapubic. She reports that she has never smoked. She has never used smokeless tobacco. She reports previous alcohol use. She reports that she does not use drugs. Social History Social History Narrative Not on file Her family history includes Colon cancer in her father and sister; Heart disease in her mother; Osteoporosis in her mother. GENERAL PHYSICAL EXAMINATION Vital Signs: Blood pressure 129/74, pulse 62, height 5' 3 , weight 50.9 kg (112 lb 4.8 oz). General Appearance: in no apparent distress, well nourished, conversant, cooperative Eyes: Anicteric sclerae. Moist conjunctivae. No lid edema noted. HENT: Head atraumatic, normocephalic. Oropharynx clear. Moist mucous membranes. Neck/ Thyroid:trachea midline. Supple. No massess. No thyromegaly. . Lungs: Normal respiratory effort. No intercostal retractions. No dyspnea during conversation.. Abdomen: soft, non-distended Extremities: no clubbing, cyanosis, pedal edema, ulcer nor wound noted. Skin: warm, dry, no rash, no ecchymoses, no petechiae noted Pysch: normal mood, behavior, speech, dress, and thought processes MULTIPLE SCLEROSIS PERFORMANCE TEST Neurological Testing VALUE Visual acuity (2.5% low contrast) OD: 20/80 OS: 20/80 -1 90 second Symbol Digit Modality Test 46 Nine Hole Peg Test Right 1st: 26.51 Right 2nd: Left 1st: 23.24 Left 2nd: Timed 25 Foot Walk Trial 1: pt unable to ambulate Trial 2: pt unable to ambulate TRADITIONAL NEUROLOGICAL EXAMINATION MENTAL STATUS: intact to casual conversation. Normal language function regarding fluency and comprehension. Normal mood and affect. CRANIAL NERVES: CN II: Visual mar full to confrontation testing. On pupillary testing no R-APD detected. On Fundoscopy, bilateral discs are flat with normal color. CN III, IV, : Eyes are aligned in primary gaze. Extra ocular movements intact without nystagmus. Normal convergence. No RILEY noted. No ptosis noted. CN V, VII: Sensation and strength are intact and symmetric. CN VIII: Hearing intact to finger rub bilaterally CN IX, X: Palate elevated symmetrically. No dysarthria noted. CN XI: Sternocleidomastoid and trapezius strength is full bilaterally. CN XII: The tongue protrudes in the midline. No fasciculation or atrophy appreciated. PYRAMIDAL: Pronator drift not noted. Manual Muscle Testing: D B T WE FF IO HF KF KE DF PF Right 5 5 5 5 5 5 0 0 0 0 0 Left 5 5 5 5 5 5 0 0 0 0 0 Modified Georgia Score: B T Hip add KF KE DF PF Right 0 0 0 0 0 0 0 Left 0 0 0 0 0 0 0 Deep Tendon Reflexes: Bicep Tricep BR Patellar Ankle Right 2 2 2 0 0 Left 2 2 2 0 0 SENSORY: Normal LT and pinprick in UE's bilaterally; no sensation waist down COORDINATION: Normal smooth eye pursuits, no saccadic intrusions noted. No truncal ataxia noted with sitting. Normal [id number] and fine finger movements without evidence of appendicular dysmetria nor ataxia. No tremors or abnormal movements noted. GAIT: Non-ambulatory IMPRESSION Aleena Andrea is a pleasant 70 y.o. Right-handed female referred for evaluation of and treatment recommendations for Idiopathic Thoracic Transverse Myelitis. Clinical history is consistent with acute bilateral lower extremity weakness in 2000. Imaging obtained at the time was consistent with a Thoracic Transverse Myelitis, which was later complicated by hemorrhage within the area of inflammation resulting in permanent paraplegia. Work-up for MS or other potential etiologies of the myelitis was reportedly negative. Current concerns include difficult to control neuropathic pain. I recommend the following plan: PLAN 1. We will request initial 2001 MRI imaging and neurology records from [facility]. 2. Given persistent pain despite multiple pharmacologic therapies, I recommend obtaining MRI Cervical Spine and Thoracic Spine w/wo contrast on 3T scanner to rule out recurrent inflammatory activity. 3. I recommend continuing symptomatic medications as previously prescribed with the following exception: - Increase Gabapentin to 800 mg TID and 1200 mg at bedtime. - After 2 weeks, if change in Gabapentin dosing is not beneficial increase Duloxetine to 60 mg BID. PLAN RELATED TO CLINIC FOLLOW UP 1. I will schedule a follow-up visit in 1 month with MRI C/T Spine. 2. Please arrive 30 minutes before your appointment to allow time to complete paperwork and specific testing prior to seeing your specialist. If you arrive late you may not be able to be seen that day and may need to reschedule your visit. 3. Please sign up for the [employer] patient portal. [employer] gives you controlled access to the same [facility] medical records your [facility] care team use, via browser or mobile [email or web address] (for iOS and Android). Its allows you to review some of your testing results, and provides you with a communication link to your care providers. 4. Many of your test results can be reviewed online at any time through [employer]. Your MS care team will review all results, but will only contact you if a finding requires urgent medical attention. Your Care team will always discuss your test results with you [id number] at your next clinic. I spent 90 minutes face to face with the patient today. Over half the time was spent counseling regarding her symptoms and clinical presentation as well as coordinating care. Thank you very much for allowing me to participate in this patient's care and please do not hesitate to contact me with questions or concerns. Sincerely, Analilia Oconnor DO, MPH Neuroimmunology Fellow ([email or web address]) Neuroimmunology & Multiple Sclerosis [facility] [address], [place], [place] [email or web address] I have seen and examined patient independently and discussed with them all pertinent findings. I have personally reviewed all available clinical data related to today's encounter, including but not limited to laboratory studies, radiology images and reports, and outside medical records. I was physically present and supervised any procedures. I have been fully involved in formulation of the above-documented assessment and plan and it has been thoroughly discussed with Dr. Analilia Oconnor, neuroimmunology fellow. Gi Frances MD, MPH System Chief Neuroimmunology & Multiple Sclerosis [facility] [address], [place], [place] [email or web address] documented in this encounter [facility] Diagnosis Transverse myelitis (HCC) Other causes of myelitis [facility] Diagnosis Transverse myelitis (HCC)- Primary Other causes of myelitis Neuropathic pain Vitamin D deficiency Other specified disorders involving the immune mechanism, 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[facility]- [facility] Ne[facility]athic [facility]- [facility] Diagnosis Neuropathic [facility]- [facility] Diagnosis Neuropathic pain- Primary documented [facility] Instructions Name Dates Details How to access health informa tion online Indication:Transverse myelitis Start:16-Mar-2020 Instruction Type:Patient Education How to access health informa tion online - Detail Indication:Transverse myelitis Start:16-Mar-2020 Instruction Type:Patient Education Patient Instructions Indication:Transverse myelitis Start:16-Mar-2020 Instruction Type:Provider Instructions for Treatment Name Dates Details How to access health informa tion online Indication:Transverse myelitis Start:16-Mar-2020 Instruction Type:Patient Education How to access health informa tion online - Detail Indication:Transverse myelitis Start:16-Mar-2020 Instruction Type:Patient Education Patient Instructions Indication:Transverse myelitis Start:16-Mar-2020 Instruction Type:Provider Instructions for Treatment Summary Purpose Family History No Family History Records FoundNo Family History Records FoundNo Family History Records Found Advance Directives No Advanced Directives Records FoundDocuments on File Type Date Recorded Patient Backup Administrator Expl anation Advance Directives and Living Will Documents on File Type Date Recorded Patient Backup Administrator Expl anation Advance Directives and Living Will Documents on File Type Date Recorded Patient Backup Administrator Expl anation Advance Directives and Livin g Will 10/04/2020 7:42 AM Documents on File Type Date Recorded Patient Backup Administrator Expl anation Advance Directives and Livin g Will 10/04/2020 7:42 AM Reason for Referral Status Reason Specialty Diagnoses / Procedures Referred By Contact Referred To Contact Authorized Neurology Diagnoses Transverse myelitis (HCC) Paraplegia (HCC) Cara Beck DO [facility] [place] [address] Gi Frances MD [address] [place] [address] Status Reason Specialty Diagnoses / Procedures Referred By Contact Referred To Contact Authorized Radiology Diagnoses Transverse myelitis (HCC) Procedures MR Thoracic Spine With And Without Contrast Gi Frances MD [address] [place] [address] Status Reason Specialty Diagnoses / Procedures Referred By Contact Referred To Contact Authorized Radiology Diagnoses Transverse myelitis (HCC) Procedures MR Cervical Spine With And Without Contrast Gi Frances MD [address] [place] [address] [place] [address] Status Reason Specialty Diagnoses / Procedures Referred By Contact Referred To Contact Closed Radiology Diagnoses Transverse myelitis (HCC) Procedures MR Cervical Spine With And Without Contrast Gi Frances MD [address] [place] [address] Assessments Diagnosis Transverse myelitis (HCC)- Primary Other causes of myelitis Paraplegia (HCC) Paraplegia Additional Source Comments INFORMATION SOURCE (unrecogn ized section and content) DATE CREATED AUTHOR AUTHOR'S ORGANIZ ATION 04/08/2021 [facility] DATE CREATED AUTHOR AUTHOR'S ORGANIZ ATION 10/12/2022 [facility] Reason for Visit (unrecogniz ed section and content) Status Reason Specialty Diagnoses / Procedures Referred By Contact Referred To Contact Closed Radiology Diagnoses Transverse myelitis (HCC) Procedures MR Cervical Spine With And Without Contrast Gi Frances MD [address] [facility] [address] [place] [address] Reason Onset Date Comments Medication Refill 03/18/2021 Care Teams (unrecognized sec tion and content) Herbicide Sprayer Relationship Specialty Start Date End Date Kiran Cara DavidsonDO [address] [place], [place] [phone] PCP - General Family Medicine 09/10/20 Herbicide Sprayer Relationship Specialty Start Date End Date Cara Beck DO [address] [place], [place] [phone] PCP - General Family Medicine 09/10/20 Herbicide Sprayer Relationship Specialty Start Date End Date Cara Beck StuartDO [address] [place] [id number] PCP - General Family Medicine 09/10/20 FOR RECORDS PERTAINING TO PATIENTS WHO ARE OR HAVE BEEN ENROLLED IN A CHEMICAL DEPENDENCY/SUBSTANCEABUSE PROGRAM, SOME INFORMATION MAY BE OMITTED. This clinical summary was aggregated from multiple sources. Caution should be exercised in using it in the provision of clinical care. This summary normalizes information from multiple sources, and as a consequence, information in this document may materially change the coding, format and clinical context of patient data. In addition, data may be omitted in some cases. CLINICAL DECISIONS SHOULD BE BASED ON THE PRIMARY CLINICAL RECORDS. [facility]. provides no warranty or guarantee of the accuracy or completeness of information in this document.
== END | disposition home or self-care (01) ==
LOC: OPBI 12:05
PROVIDERS: PCP Family Medicine; Referring Provider Family Medicine; Visit Provider Family Medicine
DX: Z12.31 Encounter for screening mammogram for malignant neoplasm of breast (principal)
CPT/HCPCS: 77063; 77067

== ENCOUNTER → 2023-06-17 | Outpatient (CLI) | payer MEDICARE, OTHER, SELFPAY ==
--- NOTE | 2023-06-17 13:19 | RAD_ITS ---
STUDY: X-RAY - RIGHT KNEE REASON FOR EXAM: Female, 73 years old. KNEE PAIN TECHNIQUE: 4 view(s) of the knee. COMPARISON: Comparison is made with prior study of July 21, 2011. FINDINGS: There is demineralization of the visualized distal femur. Is evidence of a healed distal metaphyseal femoral fracture with deformity. There is demineralization of the tibia and fibula. The mineralization of the proximal tibiofibular articulation. Normal medial femorotibial compartment. There is moderate degenerative arthrosis of the lateral femorotibial compartment with moderate joint space narrowing. Normal patellofemoral articulation. The soft tissue structures are unremarkable. RAD/Knee 4 or More Views IMPRESSION: Demineralization of the osseous structures. Healed distal femoral metaphyseal fracture with deformity. Diffuse osteopenia of the visualized bony structures. Electronically Signed: Forest Fajardo MD at 15:48 EST ,
--- NOTE | 2023-06-17 13:20 | RAD_ITS ---
STUDY: X-RAY - LEFT KNEE REASON FOR EXAM: Female, 73 years old. KNEE PAIN TECHNIQUE: 4 view(s) of the knee. COMPARISON: Comparison is made with prior study dated July 14, 2011. FINDINGS: There is demineralization of the visualized distal femur. There is demineralization of the tibia and fibula. Normal proximal tibiofibular articulation. Healed fracture of the distal femoral metaphysis. Postfracture deformity. Normal medial femorotibial compartment. Normal lateral femorotibial compartment. Normal patellofemoral articulation. The soft tissue structures are unremarkable. RAD/Knee 4 or More Views IMPRESSION: Diffuse osteopenia. Deformity of the distal femoral metaphysis due to old healed fracture. Electronically Signed: Forest Fajardo MD at 15:53 EST ,
== END | disposition home or self-care (01) ==
LOC: RAD 13:14
PROVIDERS: PCP Family Medicine; Referring Provider Anesthesiology Pain Medicine; Visit Provider Anesthesiology Pain Medicine
DX: M25.561 Pain in right knee (principal); M25.562 Pain in left knee
CPT/HCPCS: 73564

== ENCOUNTER 2023-10-19 07:31 | Day surgery (SDC) | payer MEDICARE, OTHER, SELFPAY ==
[2023-10-19 08:06] VITALS: BP 128/72; PULSE 58; RESP 16; TEMP 36.9; O2SAT 98; BMI 18.5
--- NOTE | 2023-10-19 09:20 | RAD_ITS ---
PROCEDURE: Bilateral lumbar medial branch nerve block. DATE OF EXAMINATION: October 19, 2023. INDICATION: Female, 73 years old. Chronic low back pain. FLUOROSCOPY TIME (if supplied): (14 seconds) minutes/seconds. 1.89 mGy. 6 images were submitted. RAD/Lumbar Spine 2 or 3 Views IMPRESSION: Intraoperative imaging provided for bilateral lumbar medial branch nerve block. Electronically Signed: Forest Fajardo MD at 8:02 EDT ,
[2023-10-19 09:23] VITALS: BP 127/89; O2SAT 94
[2023-10-19] MEDS: MethylPREDNISolone Acetate 80 MG/ML Vial (09:27)
[2023-10-19] MEDS: Bupivacaine 0.25% 30 ML Vial (09:27)
[2023-10-19] MEDS: Lidocaine 1% (5 ml sdv) 5 ML Vial (09:27)
[2023-10-19 09:45] VITALS: BP 128/72; BP 99/72; PULSE 72; RESP 16; TEMP 36.8; O2SAT 98
--- NOTE | 2023-10-19 10:52 | PCM.OPRPT ---
Report of Operation Date of Procedure: 10/19/23 Description of Surgical Findings:: Pre-Operative Diagnosis: Lumbosacral spondylosis, lumbosacral degenerative disc disease, lumbar facet arthropathy Post-Operative Diagnosis: Lumbosacral spondylosis, lumbosacral degenerative disc disease, lumbar facet arthropathy PROCEDURE PERFORMED: Bilateral lumbar medial branch block at, L4, L5, and S1. ANESTHESIA: Local BLOOD LOSS: Minimal. COMPLICATIONS: None. DESCRIPTION OF PROCEDURE: History and physical of today was reviewed. Risks and benefits of the procedure were explained. The patient understood and agreed to proceed. Informed consent was obtained. IV inserted per routine protocol. The patient was taken to the operating room and placed in the prone position with a pillow positioned underneath the abdomen. The lower back area was prepped and draped in a sterile fashion using iodine x3. Under fluoroscopy guidance on AP view, the L4 through S1 vertebral bodies were visualized. The skin and subcutaneous tissue was anesthetized with approximately 5 mL of 1% lidocaine using a 25-gauge regular needle. Under direct visualization with fluoroscopy, at approximately 25-degree angle, starting on the left L4, ending on the right L4, passing through the L5 and S1 bilaterally, using a 22-gauge 3-1/2-inch spinal needle, the needle was advanced via the skin. The tip of the needle was maneuvered and directed towards the superior medial gutter of the transverse process at the vicinity of the medial branch. Once tip of the needle was in contact with the bone, the needle was pulled approximately 2 mm off the bone. After negative aspiration for blood or CSF and confirmation on AP, oblique as well as lateral view, a total of 12 mL of preservative-free 0.25% Marcaine with 80 mg of Depo-Medrol was injected in divided doses between those six levels. The needles were then removed intact. The patient experienced no sign or symptoms of intrathecal or intravascular injection. The patient experienced no paresthesia. The procedure was completed without any apparent difficulty or any complications. The patient appeared to tolerate it well. ASSESSMENT AND PLAN: This is a 73-year-old female with lumbosacral spondylosis, lumbosacral degenerative disease, lumbar facet arthropathy status post bilateral lumbar medial branch block at L4, L5, S1, patient will continue current medications, patient will follow in approximately 2 weeks for reevaluation
== END 2023-10-19 10:01 | disposition home or self-care (01) ==
LOC: SDC 07:33 → AC 07:35
PROVIDERS: PCP Family Medicine; Referring Provider Anesthesiology Pain Medicine; Visit Provider Anesthesiology Pain Medicine
PROC: 3E0S3BZ Introduction of Anesthetic Agent into Epidural Space, Percutaneous Approach (ICD-10-PCS; CPT 62322; principal; 2023-10-19 08:45)
DX: M47.817 Spondylosis without myelopathy or radiculopathy, lumbosacral region (principal); M51.37 Other intervertebral disc degeneration, lumbosacral region; M46.96 Unspecified inflammatory spondylopathy, lumbar region; Z79.899 Other long term (current) drug therapy
CPT/HCPCS: 64493; 64494; 64495; 64483; 72100

== ENCOUNTER 2023-12-01 20:25 | Emergency (ER) | payer MEDICARE, OTHER, SELFPAY ==
[2023-12-01 20:26] VITALS: BP 151/111; PULSE 90; RESP 18; TEMP 36.2; O2SAT 100
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
[2023-12-01] MEDS: Piperacil/Tazobactam 4.5 GM in 0.9% Normal Saline (100mL MB+) 100 ML IV (21:47)
[2023-12-01 21:51] LABS: Absolute Lymphocyte Count 0.65 X10^3/uL (0.83-4.51); Absolute Neutrophil Count 2.9 X10^3/uL (2.0-7.7); Basophil# 0.02 X10^3/uL; Basophil% 0.5 % (0-1); Eosinophil# 0.07 X10^3/uL; Eosinophils% 1.8 % (0-5); Hematocrit 39.9 % (37-47); Hemoglobin 13.1 g/dL (12.0-15.0); Lymphocyte # 0.65 X10^3/ul (0.83-4.51); Lymphocyte % 16.3 % (19-41); Mean Corp Hgb Conc 32.8 g/dL (32-36); Mean Corpuscular Hgb 32.1 pg (27.0-32.0); Mean Corpuscular Volume 97.8 fL (81-99); Mean Platelet Vol. 9.6 fl (6.2-12.0); Monocyte# 0.35 X10^3/uL; Monocyte% 8.8 % (0-10); NRBC Flagged by Analyzer 0 % (0-5); Neutrophil # 2.88 X10^3/uL (2.7-7.7); Neutrophil % 72.3 % (47-70); Platelet Count 202 K/mm3 (150-450); RBC Distribution Width CV 12.6 % (11.6-14.6); RBC Distribution Width SD 45.2 fl (35.1-43.9); Red Blood Count 4.08 M/mm3 (4.2-5.4)
--- NOTE | 2023-12-01 21:51 | RAD_ITS ---
INDICATION: WOUND EXAMINATION/TECHNIQUE: X-RAY - LEFT XR Foot Min 3 Views 3 VIEWS COMPARISON: Left foot x-rays 05/29/2010 FINDINGS: BONES: Markedly osteopenic. No definite lytic lesion or cortical destruction. No fracture demonstrated. JOINTS: No dislocation. SOFT TISSUES: Diffuse soft tissue swelling. RAD/Foot min 3 Views IMPRESSION: Marked osteopenia. Soft tissue swelling. No radiographic evidence of osteomyelitis. Electronically Signed: Keesha Cardoso MD at 22:19 EDT ,
[2023-12-01 22:04] LABS: Anion Gap 4 (5-15); BUN 7 mg/dL (7-18); BUN/Creat Ratio 17.6 RATIO (10-20); Calcium,Total 8.9 mg/dL (8.5-10.1); Chloride 99 mmol/L (98-107); EST Glomerular Filtration Rate 168 mL/min (>60); Est Glom Filt Rate - Afr Amer 203 mL/min (>60); Glucose 100 mg/dL (74-106); Sodium Level 134 mmol/L (136-145)
[2023-12-01 23:07] VITALS: BP 172/71; PULSE 65; RESP 18; TEMP 36.8; O2SAT 97
== END 2023-12-01 23:19 | disposition home or self-care (01) ==
PROVIDERS: Emergency Provider Emergency Medicine; PCP Family Medicine; Visit Provider Emergency Medicine
DX: L98.499 Non-pressure chronic ulcer of skin of other sites with unspecified severity (principal); G82.20 Paraplegia, unspecified; L08.9 Local infection of the skin and subcutaneous tissue, unspecified
CPT/HCPCS: 73630; 80048; 85025; 87070; 87077; 87186; 87205; 99283; J7050; A4216

== ENCOUNTER 2023-12-30 10:45 | Outpatient (RCR) | payer MEDICARE, OTHER, SELFPAY ==
[2023-12-16 14:02] VITALS: BP 130/80; PULSE 75; RESP 18; BMI 16.9
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
--- NOTE | 2023-12-21 11:08 | WC ---
Patient had called asking for an updated xray from the one she had on 12/01/23. Notified Dr. Mota whether he felt he needed to order a new xray and he responded not at this time. Called and spoke to patient letting her know no new orders given. SHe is scheduled to see Dr Mota on 12/23/23 at 1345.
[2023-12-23 14:02] VITALS: BP 169/61; PULSE 77; RESP 16; TEMP 36.4; BMI 16.9
--- NOTE | 2023-12-23 16:19 | PCM.WC.PN ---
History of Present Illness Date of Service: 12/23/23 Chief Complaint: Left foot full-thickness ulceration History of Wound: Ms Preales is a 73-year-old female seen at the wound care center today for follow-up evaluation of full-thickness wound to the left foot. Patient was recently seen in the emergency department where she was put on oral antibiotics for concern for infection to the ulceration to the left foot at the level of the big toe joint. 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 Patient states that the wound started very small but has gotten quite large over the last couple of weeks and she is unsure why. No treatment thus far. She denies trauma. Denies constitutional symptoms. No other pedal complaints at this time. Progress of Wound: Chronic left foot wound progressively getting worse Subjective Subjective Ms. Perales is a 73-year-old female presented wound care center today to follow-up on evaluation of left foot full-thickness ulceration. The patient has gotten her culture results back and is anticipating results. She is planning to follow-up with vascular lab for arterial studies next week. She has been compliant with dressing changes. She denies trauma. Denies constitutional symptoms. No other pedal complaints at this time. Objective Data Objective Data Vital Signs: Vital Signs Temp Pulse Resp BP O2 Del Method 97.6 F L 77 16 169/61 H Room Air 12/23/23 14:02 12/23/23 14:02 12/23/23 14:02 12/23/23 14:02 12/16/23 14:02 Oxygen Delivery Method Room Air Weight: 40.551 kg Body Mass Index (BMI) 16.9 Lab / Micro Data Micro: Microbiology 12/17/23 08:24 Wound - Left Foot Gram Stain - Final 12/17/23 08:24 Wound - Left Foot Wound Culture - Final Corynebacterium striatum Staphylococcus haemolyticus 12/17/23 08:24 Wound - Left Foot Anaerobic Culture - Final No anaerobic bacteria isolated. Physical Exam Narrative Vascular: DP and PT pulses are faintly palpable to left lower extremity. CFT is delayed. Skin temperature gradient is warm to cool from proximal ankle to distal digit. No erythema or proximal streaking is appreciated. Neurological: Light touch absent. Protective sensation is absent. Dermatological: Full-thickness ulceration to the first metatarsal phalangeal joint dorsally measuring 2.0 x 2.4 x 0.1 cm. Wound base is fibrogranular nature. Evidence of spotty dark dry gangrene appreciated throughout the wound. No drainage appreciated. Excisional debridement down to and including subcutaneous tissue with a number 5 mm dermal curette to the left foot ulceration at the level of the first metatarsal phalangeal joint without incident. Predebridement measurement was 1.9 x 2.3 x 0.1 cm. Postdebridement measurement is 2.0 x 2.4 x 0.1 cm. Musculoskeletal: Muscle strength is 0 out of 5 bilateral. No pain on palpation to the full-thickness wound. No pain with calf pressure. Debridement Note Debridement Note Debridement Free Text: Excisional debridement down to and including subcutaneous tissue with a number 5 mm dermal curette to the left foot ulceration at the level of the first metatarsal phalangeal joint without incident. Predebridement measurement was 1.9 x 2.3 x 0.1 cm. Postdebridement measurement is 2.0 x 2.4 x 0.1 cm. Post-Debridement Measurements and Additional Note: Post-Debridement Measurements/Treatment - Nurse 1 - General Ulcer Assessment Start: 12/16/23 14:02 Freq: Status: Active Protocol: MARY.AINSLEY Activity Type Activity Date Activity User E-sign Co-sign Detail Recorded Client Recorded Date Recorded By Document 12/16/23 14:02 KW asfd 12/16/23 14:16 KW Document 12/23/23 14:02 CP [id number] 12/23/23 14:12 CP 12/16/23 12/23/23 14:02 14:02 - Today's Visit Information Type of service Initial Visit Follow-up Visit (Physician/[employer] ) Arrival Mode Wheelchair Wheelchair Patient Identification Verified (Name & Yes Yes ) Height and Weight Height 5 ft 1 in Weight 40.551 kg Weight in Pounds 89.4 lbs Body Mass Index (BMI) 16.9 16.9 BMI Classification Underweight Underweight BSA - Korin 1.34 Vital Signs Temperature (97.8 F-99.1 F) 97.6 F L Temperature Source Temporal Pulse Rate (60-100) 75 77 Pulse Location Monitor Monitor Respiratory Rate (12-18) 18 16 Respiratory rate source Observation Observation Oxygen Delivery Method Room Air Blood Pressure (90/60-120/80) 130/80 H 169/61 H Blood Pressure Mean (mm Hg) 96 97 Source Monitor Monitor Position Sitting Sitting Blood Pressure Location Left Arm Right Arm History Since Last Visit- (Skip if this is Patient's initial visit) Have you changed medications since your No last visit? Any new allergies or adverse reactions No Had a fall/change in ADL's that may No increase risk of falls Signs or symptoms of abuse and/or No neglect since last visit Have you been in the hospital since your No last visit? Has dressing in place as prescribed Yes Has compression in place as prescribed N/A Has offloadiing in place as prescribed N/A Experienced any changes in pain level or No management Left Footwear Regular Shoe Right Footwear Regular Shoe Pain Scale: 0-10 Numeric Is Patient Pain Free? Yes Yes WC - Nurse 1 - General Ulcer Measurement Start: 12/16/23 14:02 Freq: Status: Active Protocol: Activity Type Activity Date Activity User E-sign Co-sign Detail Recorded Client Recorded Date Recorded By Document 12/16/23 14:02 KW asfd 12/16/23 14:16 KW Document 12/23/23 14:02 CP [id number] 12/23/23 14:12 CP 12/16/23 12/23/23 14:02 14:02 Wound Center Nurse 1 #10 left hallux -Current Size (cm) - Length 1.8 2 -Current Size (cm) - Width 2.2 2.5 -Current Size (cm) - Depth 0.2 0.3 -Total Square Cm 3.96 5.0 -Photo Taken No -Exudate Amt Medium Small -Exudate Type Serosanguineous Serosanguineous -Wound Margin Flat & Intact Flat & Intact -Granulation Amt Medium (34-66%) Large (67-100%) -Granulation Quality Pale,Paint Red -Slough/Fibrin Yes -Necrosis Amt Medium (34-66%) Small (1-33%) -Necrotic Tissue Type Adherent Slough Adherent Slough -Structure Exposed N/A -Texture (Leyla-wound Skin Appearance) Assessed No Abnormality -Moisture (Leyla-wound Skin Appearance) Assessed No Abnormality -Color (Leyla-wound Skin Appearance) Assessed No Abnormality -Temperature (Leyla-wound Skin No Abnormality No Abnormality Appearance) (Pt Warm) (Pt Warm) -Tenderness on Palpation (Leyla-wound No No Skin Appearance) -Ulcer Cleansing Soap and Water Rinsed/ Irrigated with Saline -Foul Odor after Cleansing No No WC - Nurse 2 - General Ulcer CM Notes Start: 12/16/23 14:02 Freq: Status: Active Protocol: Activity Type Activity Date Activity User E-sign Co-sign Detail Recorded Client Recorded Date Recorded By Document 12/16/23 14:51 JF 0000 12/16/23 14:58 Document 12/23/23 14:30 [id number] 12/23/23 14:36 12/16/23 12/23/23 14:51 14:30 Wound Center Nurse 2 #10 left hallux -Time 14:52 14:30 -Correct Patient Yes Yes -Correct Side, Site, Position Yes Yes -Correct Procedure Yes Yes -Procedure Performed Yes Yes -Type of Procedure Debridement Debridement -Clinical Debridement Muscle / Fascia Subcutaneous -Tissue Removed Muscle,Fascia Subcutaneous -Post Debridement (cm) - Length 2.0 2.0 -Post Debridement (cm) - Width 2.5 2.4 -Post Debridement (cm) - Depth 0.2 0.1 -Total Square (Post) (cm) 5.00 4.80 -Area of Debridement (cm) - Length 2.0 2.0 -Area of Debridement (cm) - Width 2.5 2.4 -Total Square (Area) (cm) 5.00 4.80 -Tunneling No No -Undermining/Tunneling No No -Circular Undermining No No -Wound/Ulcer Outcome Not Healed -Ulcer Cleansing Rinsed/ Rinsed/ Irrigated with Irrigated with Saline Saline -Foul Odor after Cleansing No No -Bioengineered Tissue No No -Bleeding Controlled with Pressure Pressure -Treatment Response Procedure Procedure Not Tolerated Well Tolerated Well -Offloading No Yes -Type of Offloading Surgical Shoe -Debridement - Subq, 1st 20sq cm Yes -Debridement - Muscle / Fascia, 1st Yes 20sq cm Pain Scale: 0-10 Numeric Is Patient Pain Free? Yes Yes WC - Nurse 3 - General Ulcer D/C NN Start: 12/16/23 14:02 Freq: Status: Active Protocol: Activity Type Activity Date Activity User E-sign Co-sign Detail Recorded Client Recorded Date Recorded By Document 12/16/23 15:21 [id number] 12/16/23 15:23 [place] Document 12/23/23 15:08 CP [id number] 12/23/23 15:09 CP 12/16/23 12/23/23 15:21 15:08 Wound Care Center Nurse 3 #10 left hallux -Ulcer Cleansing Rinsed/ Irrigated with Saline -Primary Dressing Applied C Hydrogel ($) -Other Dressing HYDROGEL -Primary Dressing Covered/Secured with Dry Gauze & Dry Gauze & Roll Gauze, Roll Gauze, Secured with Secured with Tape Tape Left -Tubular Bandage Single Layer Single Layer -Size of Tubigrip Used Size D Size C -Size C ($) 1 -Size D ($) 1 Treatment Response Procedure Tolerated Well Pain Scale: 0-10 Numeric Is Patient Pain Free? Yes Yes WC - Visit Discharge Discharge Condition Stable Ambulatory Status Wheelchair Clinical Summary of Care Provided Yes Assessment/Plan Assessment/Plan (1) Non-pressure chronic ulcer of other part of left foot with fat layer exposed: CODE(S): L97.522 - Non-pressure chronic ulcer of other part of left foot with fat layer exposed PLAN: Patient was examined and evaluated. All findings were discussed with the patient. All questions were answered to the patient's satisfaction. Excisional debridement down to and including subcutaneous tissue with a number 5 mm dermal curette to the left foot ulceration at the level of the first metatarsal phalangeal joint without incident. Predebridement measurement was 1.9 x 2.3 x 0.1 cm. Postdebridement measurement is 2.0 x 2.4 x 0.1 cm. Review of the patient's culture results show evidence of bacterial growth, C striatum, S hemolyticus. Patient will be placed on linezolid 600 mg twice daily. She is on Cymbalta and asked to stop taking her Cymbalta over the next 2 weeks due to possible interactions. She was understanding this. Patient will get her vascular studies next week. Educated the patient to increase her protein and begin trying to use her rollator that allows her to stand and walk to help get blood flow to the bilateral lower extremity. Patient will continue her Leeroy 2 times per day. Follow-up at the wound care center with Dr. Mota in 1 week. (2) Other specified peripheral vascular diseases: CODE(S): I73.89 - Other specified peripheral vascular diseases
--- NOTE | 2023-12-24 11:33 | WC ---
Patient called concerned that her Zyvox prescription is $170/copay. She was wandering if there was an alternative? Notified Dr Mota and he researched an alternative. Said he would prefer the Zyvox but will call in a 3rd generation cephalosporin Cefdinir to her pharmacy. Patient was notified and will wait to hear from her pharmacy. Patient is scheduled next week for wound center appt.
--- NOTE | 2023-12-30 08:00 | VDLE_ITS ---
Reason For Study: BLE Edema RIGHT LEFT CFV is compressible, spontaneous, phasic, CFV is compressible, spontaneous, phasic, competent and demonstrates normal competent, and demonstrates normal augmentation. augmentation. FV is compressible, spontaneous, phasic, FV is compressible, spontaneous, phasic, competent and demonstrates normal competent and demonstrates normal augmentation. augmentation. POP V is compressible, spontaneous, phasic, POP V is compressible, spontaneous, phasic, competent and demonstrates normal competent and demonstrates normal augmentation. augmentation. T/P Trunk is compressible. T/P Trunk is compressible. PTV is compressible. PTV is compressible. RT PerV is compressible. LT PerV is compressible. SFJ is competent and measures 0.61 cm. SFJ is INCOMPETENT and measures 0.64 cm. GSV proximal thigh measures 0.34 x 0.40 cm. GSV proximal thigh measures 0.34 x 0.37 cm. GSV at knee measures 0.35 x 0.44 cm. GSV above knee is competent. GSV is competent throughout. GSV below knee is INCOMPETENT for greater SSV proximal calf is competent and measures than 0.5 seconds. 0.30 x 0.32 cm. SSV proximal calf is INCOMPETENT for greater Procedure than 0.5 seconds and measures 0.32 x 0.30 cm. Exam performed in department. This is a venous duplex using B-mode, color flow and spectral Doppler. The exam was diagnostic. Patient was scanned in reverse Trendelenburg position during reflux assessment. VL/Venous Duplex US - Rafael Extrem Interpretation Summary Deep veins of the lower extremities are bilaterally patent and compressible seg mentally. There is no evidence of deep vein thrombosis on either side. Valvular competence appears in tact within the proximal deep venous systems bilaterally. The great saphenous veins appear bila terally patent and compressible segmentally. The right sapheno-femoral junction is competent . The left sapheno-femoral junction is incompetent . The right great saphenous vein appears segmentally co mpetent. The left great saphenous vein appears competent above the knee. The left great saphenous vein appears incompetent below the knee. The right small saphenous vein is patent and compet ent. The left small saphenous vein is patent and incompetent. Ordering Physician: Kishore Mota Referring Physician: Casie Trevizo Performed By: Adam Burden RVT
--- NOTE | 2023-12-30 08:00 | ART_ITS ---
Reason For Study: LLE Foot Wound Procedure A bilateral lower extremity continuous wave Doppler with analog waveform analysis,segmental pressures,and ankle brachial indexes without exercise. Left Segmental Pressures Left brachial= 106mmHg. Left posterior tibial artery = 124mmHg. Left dorsalis pedis artery = 153mmHg. Left digit = 122 mmHg. The left posterior tibial artery waveforms are biphasic. The left dorsalis pedis waveforms are triphasic. Right Segmental Pressures Right brachial= 110mmHg. Right posterior tibial artery = 129mmHg. Right dorsalis pedis artery = 139mmHg. Right digit = 112 mmHg. The right posterior tibial artery waveforms are triphasic. The right dorsalis pedis waveforms are triphasic. Indices The right ankle brachial index by the posterior tibial artery is 1.17. The right ankle brachial index by the dorsalis pedis is 1.26. The right digital-brachial index is 1.02. The left ankle brachial index by the posterior tibial artery is 1.13. The left ankle brachial index by the dorsalis pedis is 1.39. The left digital-brachial index is 1.11. VL/Lower Ext Art Exam w/o Exercis Interpretation Summary Triphasic Doppler waveforms are noted at ankle level on the right. Biphasic and triphasic Doppler waveforms are noted at ankle level on the left. Pulse-volume recordings appear satisfactory at all levels bilaterally. Resting ankle-brachial indices are normal bilaterally. Digi walker-brachial indices are normal bilaterally. There is no evidence of significant arterial occlusive disease in the lower ext remities bilaterally. Ordering Physician: Kishore Mota Referring Physician: Casie Peña Performed By: Adam Burden RVT
[2023-12-30 10:51] VITALS: BP 188/66; PULSE 68; RESP 16; TEMP 35.9; BMI 16.9
[2023-12-30 11:35] VITALS: BMI 16.9
--- NOTE | 2023-12-30 12:45 | HP.PCM_ITS ---
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 Dressing -Primary Dressing Covered/Secured with Left -Tubular Bandage -Size of Tubigrip Used -Size C ($) -Size D ($) Treatment Response Pain Scale: 0-10 Numeric Is Patient Pain Free? Yes WC - Visit Discharge Discharge Condition Ambulatory Status Medication Reconcilliation completed & provided to patient/care provider Clinical Summary of Care Provided Additional Wound Wound debrided: Right ischium Laterality: Right Wound Grade/Stage: Stage I Type of Debridement: Selective debridement Anesthesia Used: 5% Lidocaine Gel Depth: Down to and including healthy tissue Percentage of wound debrided: 100 Instrument Used: - (Gauze) Tissue Removed: Fibrin Severity: Limited To Skin Breakdown Amount of bleeding with debridement: None Bleeding Controlled with: Pressure Patient tolerated procedure: Patient tolerated procedure well Additional Wound Wound debrided: Left hip trochanter Wound Grade/Stage: Stage I Type of Debridement: Selective debridement Anesthesia Used: 5% Lidocaine Gel Depth: Down to and including healthy tissue Percentage of wound debrided: 100 Instrument Used: - (Gauze) Tissue Removed: Fibrin Severity: Limited To Skin Breakdown Amount of bleeding with debridement: None Bleeding Controlled with: Pressure Patient tolerated procedure: Patient tolerated procedure well Assessment/Plan Assessment/Plan (1) Decubitus ulcer of sacral region, stage 2: CODE(S): L89.152 - Pressure ulcer of sacral region, stage 2 PLAN: Wash the area with antibacterial soap and water pat dry apply Fibracol moistened to the wound base cover with an absorbent pad a dressing every day Follow-up in 1 week (2) Decubitus ulcer of right ischium, stage 1: CODE(S): L89.311 - Pressure ulcer of right buttock, stage 1 PLAN: Wash the area with antibacterial soap and water pat dry apply padded dressing to area and also bring in the DuoDERM next week and we will apply 1-2 times a day Follow-up in 1 week (3) Decubitus ulcer of left hip, stage 1: CODE(S): L89.221 - Pressure ulcer of left hip, stage 1 PLAN: Wash area with antibacterial soap and water apply padding to the area and when she receives the DuoDERM bring them and we will apply them. 1-2 times a day
--- NOTE | 2023-12-30 13:02 | PCM.WC.PN ---
History of Present Illness Date of Service: 12/30/23 Chief Complaint: Coccyx wound and right ischium left hip wounds History of Wound: Ms Perales is a 73-year-old female seen at the wound care center today for follow-up evaluation of a coccyx wounds it has been going on for over 1 year they have been using all sorts of different products but is only been seen by the home health care nurse and getting dressing changes twice a week. At this point it superficial and open stage II so we will try using some Fibracol on that area. 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 Patient states that the wounds on her right ischium is from scooting and friction and has been constant going on and off for 20 years it is closed at this time and flushing color she says it was she could get her finger inside the wound at 1 time but is healed now the left hip trochanter is scabbed but it is healed it is not open and we will pad and protect both these areas for now and then my suggestion is were going to order some DuoDERM film patches to put over them to keep them from breaking open. Progress of Wound: So we will use the Fibracol to for the buttocks and pad with a thick foam dressing over top and the pad the 2 other areas that are not open until we can get the DuoDERM ordered and and see if we can apply those and see if that would help her from prevention of further openings. We will have patient follow-up in 1 week to relook at everything. Subjective Subjective Mrs. Perales 73-year-old female presenting wound care center today for follow-up evaluation of left foot full-thickness ulceration. Patient is nonambulatory and gets around in a wheelchair. She is on her oral antibiotic which she has noticed improvement to the left foot. She denies any malodor or drainage. She does admit to getting the bandage wet today when using the cast cover as it is too big for her leg. She will get a new one. Denies any trauma. Denies constitutional symptoms. To the pedal complaints at this time. Objective Data Objective Data Vital Signs: Vital Signs Temp Pulse Resp BP O2 Del Method 96.7 F L 68 16 188/66 H Room Air 12/30/23 10:51 12/30/23 10:51 12/30/23 10:51 12/30/23 10:51 12/30/23 10:51 Oxygen Delivery Method Room Air Weight: 40.551 kg Body Mass Index (BMI) 16.9 Lab / Micro Data Micro: Microbiology 12/17/23 08:24 Wound - Left Foot Gram Stain - Final 12/17/23 08:24 Wound - Left Foot Wound Culture - Final Corynebacterium striatum Staphylococcus haemolyticus 12/17/23 08:24 Wound - Left Foot Anaerobic Culture - Final No anaerobic bacteria isolated. Physical Exam Narrative Vascular: DP and PT pulses are faintly palpable to left lower extremity. CFT is delayed. Skin temperature gradient is warm to cool from proximal ankle to distal digit. No erythema or proximal streaking is appreciated. Neurological: Light touch absent. Protective sensation is absent. Dermatological: Full-thickness ulceration to the first metatarsal phalangeal joint dorsally measuring 2.0 x 2.3 x 0.1 cm. Wound base is granular nature. No drainage or sign of infection. . Excisional debridement down to and including subcutaneous tissue with a number 5 mm dermal curette to the left foot ulceration at the level of the first metatarsal phalangeal joint without incident. Predebridement measurement was 1.9 x 2.2 x 0.1 cm. Postdebridement measurement is 2.0 x 2.3 x 0.1 cm. EpiFix mesh 4.0 x 4.5 cm was applied to the left full-thickness ulceration with 100% use. First application. The graft site was free and clear of any infection. The wound/skin graft substitute was dressed with nonadherent bandage secured in place with Steri-Strips followed by bolster dressing as well as a double layer Tubigrip. Musculoskeletal: Muscle strength is 0 out of 5 bilateral. No pain on palpation to the full-thickness wound. No pain with calf pressure. Debridement Note Debridement Note Debridement Free Text: Excisional debridement down to and including subcutaneous tissue with a number 5 mm dermal curette to the left foot ulceration at the level of the first metatarsal phalangeal joint without incident. Predebridement measurement was 1.9 x 2.2 x 0.1 cm. Postdebridement measurement is 2.0 x 2.3 x 0.1 cm. EpiFix mesh 4.0 x 4.5 cm was applied to the left full-thickness ulceration with 100% use. First application. The graft site was free and clear of any infection. The wound/skin graft substitute was dressed with nonadherent bandage secured in place with Steri-Strips followed by bolster dressing as well as a double layer Tubigrip. Post-Debridement Measurements and Additional Note: Post-Debridement Measurements/Treatment WC - Nurse 1 - General Ulcer Assessment Start: 12/16/23 14:02 Freq: Status: Active Protocol: JOSEPHINE Activity Type Activity Date Activity User E-sign Co-sign Detail Recorded Client Recorded Date Recorded By Document 12/16/23 14:02 KW asfd 12/16/23 14:16 KW Document 12/23/23 14:02 CP [id number] 12/23/23 14:12 CP Document 12/30/23 10:51 KW sef 12/30/23 10:57 KW Document 12/30/23 11:35 KW [id number] 12/30/23 11:37 KW 12/16/23 12/23/23 12/30/23 14:02 14:02 10:51 - Today's Visit Information Type of service Initial Visit Follow-up Visit Follow-up Visit (Physician/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/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 SEWING MACHINE 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 ) ) Arrival Mode Wheelchair Wheelchair Wheelchair Patient Identification Verified (Name & Yes Yes Yes ) Height and Weight Height 5 ft 1 in Weight 40.551 kg Weight in Pounds 89.4 lbs Weight Measurement Method Stated by Patient Body Mass Index (BMI) 16.9 16.9 16.9 BMI Classification Underweight Underweight Underweight BSA - Korin 1.34 Vital Signs Temperature (97.8 F-99.1 F) 97.6 F L 96.7 F L Temperature Source Temporal Temporal Pulse Rate (60-100) 75 77 68 Pulse Location Monitor Monitor Monitor Respiratory Rate (12-18) 18 16 16 Respiratory rate source Observation Observation Monitor Oxygen Delivery Method Room Air Room Air Blood Pressure (90/60-120/80) 130/80 H 169/61 H 188/66 H Blood Pressure Mean (mm Hg) 96 97 106 Source Monitor Monitor Monitor Position Sitting Sitting Sitting Blood Pressure Location Left Arm Right Arm Left Arm History Since Last Visit- (Skip if this is Patient's initial visit) Have you changed medications since your No No last visit? Any new allergies or adverse reactions No No Had a fall/change in ADL's that may No No increase risk of falls Signs or symptoms of abuse and/or No No neglect since last visit Have you been in the hospital since your No No last visit? Has dressing in place as prescribed Yes Yes Has compression in place as prescribed N/A Yes Has offloadiing in place as prescribed N/A N/A Experienced any changes in pain level or No No management Left Footwear Regular Shoe Regular Shoe Right Footwear Regular Shoe Regular Shoe Pain Scale: 0-10 Numeric Is Patient Pain Free? Yes Yes Yes 12/30/23 11:35 WC - Today's Visit Information Type of service Arrival Mode Patient Identification Verified (Name & ) Height and Weight Height Weight Weight in Pounds Weight Measurement Method Body Mass Index (BMI) 16.9 BMI Classification Underweight [facility] - Korin Vital Signs Temperature (97.8 F-99.1 F) Temperature Source Pulse Rate (60-100) Pulse Location Respiratory Rate (12-18) Respiratory rate source Oxygen Delivery Method Blood Pressure (90/60-120/80) Blood Pressure Mean (mm Hg) Source Position Blood Pressure Location History Since Last Visit- (Skip if this is Patient's initial visit) Have you changed medications since your last visit? Any new allergies or adverse reactions Had a fall/change in ADL's that may increase risk of falls Signs or symptoms of abuse and/or neglect since last visit Have you been in the hospital since your last visit? Has dressing in place as prescribed Has compression in place as prescribed Has offloadiing in place as prescribed Experienced any changes in pain level or management Left Footwear Right Footwear Pain Scale: 0-10 Numeric Is Patient Pain Free? Yes - Nurse 1 - General Ulcer Measurement Start: 12/16/23 14:02 Freq: Status: Active Protocol: Activity Type Activity Date Activity User E-sign Co-sign Detail Recorded Client Recorded Date Recorded By Document 12/16/23 14:02 KW asfd 12/16/23 14:16 KW Document 12/23/23 14:02 CP [id number] 12/23/23 14:12 CP Document 12/30/23 10:51 KW sef 12/30/23 10:57 KW Document 12/30/23 11:35 KW [id number] 12/30/23 11:37 KW 12/16/23 12/23/23 12/30/23 14:02 14:02 10:51 Wound Center Nurse 1 13 COCCYX -Current Size (cm) - Length -Current Size (cm) - Width -Current Size (cm) - Depth -Total Square Cm -Exudate Amt -Exudate Type -Wound Margin -Granulation Amt -Granulation Quality -Texture (Leyla-wound Skin Appearance) -Moisture (Leyla-wound Skin Appearance) -Color (Leyla-wound Skin Appearance) -Temperature (Leyla-wound Skin Appearance) -Tenderness on Palpation (Leyla-wound Skin Appearance) -Ulcer Cleansing -Foul Odor after Cleansing -Anesthetic Used 12 L HIP -Current Size (cm) - Length -Current Size (cm) - Width -Current Size (cm) - Depth -Total Square Cm -Exudate Amt -Exudate Type -Wound Margin -Granulation Amt -Granulation Quality -Texture (Leyla-wound Skin Appearance) -Moisture (Leyla-wound Skin Appearance) -Color (Leyla-wound Skin Appearance) -Temperature (Leyla-wound Skin Appearance) -Tenderness on Palpation (Leyla-wound Skin Appearance) -Ulcer Cleansing -Foul Odor after Cleansing -Anesthetic Used #11 R ISCHIUM -Current Size (cm) - Length -Current Size (cm) - Width -Current Size (cm) - Depth -Total Square Cm -Texture (Leyla-wound Skin Appearance) -Moisture (Leyla-wound Skin Appearance) -Color (Leyla-wound Skin Appearance) #10 left hallux -Current Size (cm) - Length 1.8 2 1.9 -Current Size (cm) - Width 2.2 2.5 2 -Current Size (cm) - Depth 0.2 0.3 0.2 -Total Square Cm 3.96 5.0 3.8 -Photo Taken No -Exudate Amt Medium Small Large -Exudate Type Serosanguineous Serosanguineous Serosanguineous -Wound Margin Flat & Intact Flat & Intact Distinct, Outline Attached -Granulation Amt Medium (34-66%) Large (67-100%) Large (67-100%) -Granulation Quality Pale,Siloam Red Siloam -Slough/Fibrin Yes -Necrosis Amt Medium (34-66%) Small (1-33%) Small (1-33%) -Necrotic Tissue Type Adherent Slough Adherent Slough Adherent Slough -Structure Exposed N/A -Texture (Leyla-wound Skin Appearance) Assessed No Abnormality Assessed -Moisture (Leyla-wound Skin Appearance) Assessed No Abnormality Assessed, Maceration -Color (Leyla-wound Skin Appearance) Assessed No Abnormality Assessed -Temperature (Leyla-wound Skin No Abnormality No Abnormality No Abnormality Appearance) (Pt Warm) (Pt Warm) (Pt Warm) -Tenderness on Palpation (Leyla-wound No No No Skin Appearance) -Ulcer Cleansing Soap and Water Rinsed/ Rinsed/ Irrigated with Irrigated with Saline Saline -Foul Odor after Cleansing No No -Anesthetic Used 5% Lidocaine Gel 12/30/23 11:35 Wound Center Nurse 1 13 COCCYX -Current Size (cm) - Length 2 -Current Size (cm) - Width 2 -Current Size (cm) - Depth 0.1 -Total Square Cm 4 -Exudate Amt Small -Exudate Type Serous -Wound Margin Distinct, Outline Attached -Granulation Amt Large (67-100%) -Granulation Quality Siloam,Red -Texture (Leyla-wound Skin Appearance) Assessed -Moisture (Leyla-wound Skin Appearance) Assessed -Color (Leyla-wound Skin Appearance) Assessed -Temperature (Leyla-wound Skin No Abnormality Appearance) (Pt Warm) -Tenderness on Palpation (Leyla-wound No Skin Appearance) -Ulcer Cleansing Soap and Water -Foul Odor after Cleansing No -Anesthetic Used 5% Lidocaine Gel 12 L HIP -Current Size (cm) - Length 0.2 -Current Size (cm) - Width 0.4 -Current Size (cm) - Depth 0.1 -Total Square Cm 0.08 -Exudate Amt Small -Exudate Type Sanguineous -Wound Margin Distinct, Outline Attached -Granulation Amt Large (67-100%) -Granulation Quality Red -Texture (Leyla-wound Skin Appearance) Assessed -Moisture (Leyla-wound Skin Appearance) Assessed -Color (Leyla-wound Skin Appearance) Assessed -Temperature (Leyla-wound Skin No Abnormality Appearance) (Pt Warm) -Tenderness on Palpation (Leyla-wound No Skin Appearance) -Ulcer Cleansing Rinsed/ Irrigated with Saline -Foul Odor after Cleansing No -Anesthetic Used 5% Lidocaine Gel #11 R ISCHIUM -Current Size (cm) - Length 0.1 -Current Size (cm) - Width 0.1 -Current Size (cm) - Depth 0.1 -Total Square Cm 0.01 -Texture (Leyla-wound Skin Appearance) Assessed -Moisture (Leyla-wound Skin Appearance) Assessed -Color (Leyla-wound Skin Appearance) Assessed #10 left hallux -Current Size (cm) - Length -Current Size (cm) - Width -Current Size (cm) - Depth -Total Square Cm -Photo Taken -Exudate Amt -Exudate Type -Wound Margin -Granulation Amt -Granulation Quality -Slough/Fibrin -Necrosis Amt -Necrotic Tissue Type -Structure Exposed -Texture (Leyla-wound Skin Appearance) -Moisture (Leyla-wound Skin Appearance) -Color (Leyla-wound Skin Appearance) -Temperature (Leyla-wound Skin Appearance) -Tenderness on Palpation (Leyla-wound Skin Appearance) -Ulcer Cleansing -Foul Odor after Cleansing -Anesthetic Used WC - Nurse 2 - General Ulcer CM Notes Start: 12/16/23 14:02 Freq: Status: Active Protocol: Activity Type Activity Date Activity User E-sign Co-sign Detail Recorded Client Recorded Date Recorded By Document 12/16/23 14:51 0000 12/16/23 14:58 Document 12/23/23 14:30 [id number] 12/23/23 14:36 Document 12/30/23 11:22 [id number] 12/30/23 11:26 Document 12/30/23 11:50 [facility] [id number] 12/30/23 12:02 [facility] 12/16/23 12/23/23 12/30/23 14:51 14:30 11:22 Wound Center Nurse 2 13 COCCYX -Time -Correct Patient -Correct Side, Site, Position -Correct Procedure -Procedure Performed -Type of Procedure -Clinical Debridement -Tissue Removed -Post Debridement (cm) - Length -Post Debridement (cm) - Width -Post Debridement (cm) - Depth -Total Square (Post) (cm) -Area of Debridement (cm) - Length -Area of Debridement (cm) - Width -Total Square (Area) (cm) -Tunneling -Undermining/Tunneling -Circular Undermining -Wound/Ulcer Outcome -Ulcer Cleansing -Foul Odor after Cleansing -Bioengineered Tissue -Bleeding Controlled with -Treatment Response -Debridement - Subq, 1st 20sq cm 12 L HIP -Time -Correct Patient -Correct Side, Site, Position -Correct Procedure -Procedure Performed -Type of Procedure -Clinical Debridement -Tissue Removed -Post Debridement (cm) - Length -Post Debridement (cm) - Width -Post Debridement (cm) - Depth -Total Square (Post) (cm) -Area of Debridement (cm) - Length -Area of Debridement (cm) - Width -Total Square (Area) (cm) -Wound/Ulcer Outcome -Bleeding Controlled with -Debridement - Open, 1st 20sq cm #11 R ISCHIUM -Time -Correct Patient -Correct Side, Site, Position -Correct Procedure -Procedure Performed -Type of Procedure -Clinical Debridement -Tissue Removed -Post Debridement (cm) - Length -Post Debridement (cm) - Width -Post Debridement (cm) - Depth -Total Square (Post) (cm) -Area of Debridement (cm) - Length -Area of Debridement (cm) - Width -Total Square (Area) (cm) -Wound/Ulcer Outcome -Ulcer Cleansing -Foul Odor after Cleansing -Bleeding Controlled with -Treatment Response -Debridement - Open, 1st 20sq cm #10 left hallux -Time 14:52 14:30 11:24 -Correct Patient Yes Yes Yes -Correct Side, Site, Position Yes Yes Yes -Correct Procedure Yes Yes Yes -Procedure Performed Yes Yes Yes -Type of Procedure Debridement Debridement Debridement -Clinical Debridement Muscle / Fascia Subcutaneous Subcutaneous -Tissue Removed Muscle,Fascia Subcutaneous Subcutaneous -Post Debridement (cm) - Length 2.0 2.0 2.0 -Post Debridement (cm) - Width 2.5 2.4 2.3 -Post Debridement (cm) - Depth 0.2 0.1 0.1 -Total Square (Post) (cm) 5.00 4.80 4.60 -Area of Debridement (cm) - Length 2.0 2.0 2.0 -Area of Debridement (cm) - Width 2.5 2.4 2.3 -Total Square (Area) (cm) 5.00 4.80 4.60 -Tunneling No No No -Undermining/Tunneling No No No -Circular Undermining No No No -Wound/Ulcer Outcome Not Healed Not Healed -Ulcer Cleansing Rinsed/ Rinsed/ Rinsed/ Irrigated with Irrigated with Irrigated with Saline Saline Saline -Foul Odor after Cleansing No No No -Bioengineered Tissue No No Yes -Type of Bioengineered Tissue Epifix Mesh -Expiration Date 06/04/28 -Product Lot Number [id number] -Percent Used 100 -Lot number of Saline Used [id number] -Bleeding Controlled with Pressure Pressure Pressure -Treatment Response Procedure Procedure Not Procedure Tolerated Well Tolerated Well Tolerated Well -Offloading No Yes No -Type of Offloading Surgical Shoe -Debridement - Subq, 1st 20sq cm Yes No -Debridement - Muscle / Fascia, 1st Yes 20sq cm -Apply Skin Sub - 1st 25 sq cm - Legs 1 -Epifix Mesh (per sq cm) 11 Pain Scale: 0-10 Numeric Is Patient Pain Free? Yes Yes Yes 12/30/23 11:50 Wound Center Nurse 2 13 COCCYX -Time 11:50 -Correct Patient Yes -Correct Side, Site, Position Yes -Correct Procedure Yes -Procedure Performed Yes -Type of Procedure Debridement -Clinical Debridement Subcutaneous -Tissue Removed Subcutaneous -Post Debridement (cm) - Length 2 -Post Debridement (cm) - Width 2.5 -Post Debridement (cm) - Depth 0.1 -Total Square (Post) (cm) 5.0 -Area of Debridement (cm) - Length 2 -Area of Debridement (cm) - Width 2.5 -Total Square (Area) (cm) 5.0 -Tunneling No -Undermining/Tunneling No -Circular Undermining No -Wound/Ulcer Outcome Not Healed -Ulcer Cleansing Rinsed/ Irrigated with Saline -Foul Odor after Cleansing No -Bioengineered Tissue No -Bleeding Controlled with Pressure -Treatment Response Procedure Tolerated Well -Debridement - Subq, 1st 20sq cm Yes 12 L HIP -Time 11:59 -Correct Patient Yes -Correct Side, Site, Position Yes -Correct Procedure Yes -Procedure Performed Yes -Type of Procedure Debridement -Clinical Debridement Epidermis / Dermis -Tissue Removed Epidermis, Dermis -Post Debridement (cm) - Length 0.1 -Post Debridement (cm) - Width 0.1 -Post Debridement (cm) - Depth 0.1 -Total Square (Post) (cm) 0.01 -Area of Debridement (cm) - Length 0.1 -Area of Debridement (cm) - Width 0.1 -Total Square (Area) (cm) 0.01 -Wound/Ulcer Outcome Not Healed -Bleeding Controlled with Pressure -Debridement - Open, 1st 20sq cm Yes #11 R ISCHIUM -Time 12:00 -Correct Patient Yes -Correct Side, Site, Position Yes -Correct Procedure Yes -Procedure Performed Yes -Type of Procedure Debridement -Clinical Debridement Epidermis / Dermis -Tissue Removed Epidermis, Dermis -Post Debridement (cm) - Length 0.1 -Post Debridement (cm) - Width 0.1 -Post Debridement (cm) - Depth 0.1 -Total Square (Post) (cm) 0.01 -Area of Debridement (cm) - Length 0.1 -Area of Debridement (cm) - Width 0.1 -Total Square (Area) (cm) 0.01 -Wound/Ulcer Outcome Not Healed -Ulcer Cleansing Rinsed/ Irrigated with Saline -Foul Odor after Cleansing No -Bleeding Controlled with Pressure -Treatment Response Procedure Tolerated Well -Debridement - Open, 1st 20sq cm No #10 left hallux -Time -Correct Patient -Correct Side, Site, Position -Correct Procedure -Procedure Performed -Type of Procedure -Clinical Debridement -Tissue Removed -Post Debridement (cm) - Length -Post Debridement (cm) - Width -Post Debridement (cm) - Depth -Total Square (Post) (cm) -Area of Debridement (cm) - Length -Area of Debridement (cm) - Width -Total Square (Area) (cm) -Tunneling -Undermining/Tunneling -Circular Undermining -Wound/Ulcer Outcome -Ulcer Cleansing -Foul Odor after Cleansing -Bioengineered Tissue -Type of Bioengineered Tissue -Expiration Date -Product Lot Number -Percent Used -Lot number of Saline Used -Bleeding Controlled with -Treatment Response -Offloading -Type of Offloading -Debridement - Subq, 1st 20sq cm -Debridement - Muscle / Fascia, 1st 20sq cm -Apply Skin Sub - 1st 25 sq cm - Legs -Epifix Mesh (per sq cm) Pain Scale: 0-10 Numeric Is Patient Pain Free? Yes - Nurse 3 - General Ulcer D/C NN Start: 12/16/23 14:02 Freq: Status: Active Protocol: Activity Type Activity Date Activity User E-sign Co-sign Detail Recorded Client Recorded Date Recorded By Document 12/16/23 15:21 FL [id number] 12/16/23 15:23 FL Document 12/23/23 15:08 CP [id number] 12/23/23 15:09 CP Document 12/30/23 11:30 KW [id number] 12/30/23 11:31 KW Document 12/30/23 12:09 MT [id number] 12/30/23 12:12 MT 12/16/23 12/23/23 12/30/23 15:21 15:08 11:30 Wound Care Center Nurse 3 13 COCCYX -Primary Dressing Applied -Fibracol Plus 4x4 -Mepilex Border 12 L HIP -Primary Dressing Applied -Mepilex Border #11 R ISCHIUM -Primary Dressing Applied -Mepilex Border #10 left hallux -Ulcer Cleansing Rinsed/ Irrigated with Saline -Primary Dressing Applied C Hydrogel ($) -Other Dressing HYDROGEL -Primary Dressing Covered/Secured with Dry Gauze & Dry Gauze & Dry Gauze, Roll Gauze, Roll Gauze, Secured with Secured with Secured with Tape Tape Tape Left -Tubular Bandage Single Layer Single Layer Single Layer -Size of Tubigrip Used Size D Size C Size D -Size C ($) 1 -Size D ($) 1 1 Treatment Response Procedure Tolerated Well Pain Scale: 0-10 Numeric Is Patient Pain Free? Yes Yes Yes WC - Visit Discharge Discharge Condition Stable Stable Ambulatory Status Wheelchair Wheelchair Medication Reconcilliation completed & No provided to patient/care provider Clinical Summary of Care Provided Yes Yes 12/30/23 12:09 Wound Care Center Nurse 3 13 COCCYX -Primary Dressing Applied Fibracol Plus 4x4,Mepilex Border -Fibracol Plus 4x4 2 -Mepilex Border 1 12 L HIP -Primary Dressing Applied Mepilex Border -Mepilex Border 1 #11 R ISCHIUM -Primary Dressing Applied Mepilex Border -Mepilex Border 1 #10 left hallux -Ulcer Cleansing -Primary Dressing Applied -Other Dressing -Primary Dressing Covered/Secured with Left -Tubular Bandage -Size of Tubigrip Used -Size C ($) -Size D ($) Treatment Response Pain Scale: 0-10 Numeric Is Patient Pain Free? Yes WC - Visit Discharge Discharge Condition Ambulatory Status Medication Reconcilliation completed & provided to patient/care provider Clinical Summary of Care Provided Assessment/Plan Assessment/Plan (1) Non-pressure chronic ulcer of other part of left foot with fat layer exposed: CODE(S): L97.522 - Non-pressure chronic ulcer of other part of left foot with fat layer exposed PLAN: Patient was examined and evaluated. All findings were discussed with the patient. All questions were answered to the patient's satisfaction. Excisional debridement down to and including subcutaneous tissue with a number 5 mm dermal curette to the left foot ulceration at the level of the first metatarsal phalangeal joint without incident. Predebridement measurement was 1.9 x 2.2 x 0.1 cm. Postdebridement measurement is 2.0 x 2.3 x 0.1 cm. EpiFix mesh 4.0 x 4.5 cm was applied to the left full-thickness ulceration with 100% use. First application. The graft site was free and clear of any infection. The wound/skin graft substitute was dressed with nonadherent bandage secured in place with Steri-Strips followed by bolster dressing as well as a double layer Tubigrip. Patient will continue her antibiotic as written until completed. Postponing recording show evidence of triphasic pulses right lower extremity. There is evidence of biphasic and triphasic pulses to the left lower extremity. ABIs are within normal limits and no concern for arterial disease to the bilateral lower extremity. Patient will continue her Leeroy 2 times per day. Follow-up at the wound care center with Dr. Mota in 1 week. (2) Other specified peripheral vascular diseases: CODE(S): I73.89 - Other specified peripheral vascular diseases
== END 2024-01-02 23:59 | disposition home or self-care (01) ==
LOC: WC 10:45
PROVIDERS: PCP Family Medicine; Referring Provider Family Medicine; Visit Provider Podiatrist Foot & Ankle Surgery
DX: L89.152 Pressure ulcer of sacral region, stage 2 (principal); L97.522 Non-pressure chronic ulcer of other part of left foot with fat layer exposed; G47.00 Insomnia, unspecified; L89.311 Pressure ulcer of right buttock, stage 1; L89.221 Pressure ulcer of left hip, stage 1; I73.89 Other specified peripheral vascular diseases; R60.0 Localized edema
CPT/HCPCS: 11042; 11043; 15271; 87070; 87075; 87077; 87186; 87205; 93923; 93970; 97597; 99214; Q4186; G0463

== ENCOUNTER 2024-01-05 12:52 | Emergency (ER) | payer MEDICARE, OTHER, SELFPAY ==
[2024-01-05 12:52] VITALS: BP 112/85; PULSE 151; RESP 16; TEMP 36.4; O2SAT 99
[2024-01-05 12:54] VITALS: BMI 17.3
[2024-01-05 14:28] LABS: Absolute Lymphocyte Count 0.24 X10^3/uL (0.83-4.51); Absolute Neutrophil Count 10.3 X10^3/uL (2.0-7.7); Basophil# 0.06 X10^3/uL; Basophil% 0.5 % (0-1); Eosinophil# 0.97 X10^3/uL; Eosinophils% 7.8 % (0-5); Hematocrit 41.8 % (37-47); Lymphocyte # 0.24 X10^3/ul (0.83-4.51); Lymphocyte % 1.9 % (19-41); Mean Corp Hgb Conc 33.5 g/dL (32-36); Mean Corpuscular Hgb 32.2 pg (27.0-32.0); Mean Corpuscular Volume 96.1 fL (81-99); Mean Platelet Vol. 10.1 fl (6.2-12.0); Monocyte# 0.72 X10^3/uL; Monocyte% 5.8 % (0-10); NRBC Flagged by Analyzer 0 % (0-5); Neutrophil # 10.32 X10^3/uL (2.7-7.7); Neutrophil % 83.5 % (47-70); POSITIVE DIFFERENTIAL YES; POSITIVE MORPHOLOGY YES; Platelet Count 229 K/mm3 (150-450); RBC Distribution Width CV 12.8 % (11.6-14.6); RBC Distribution Width SD 45.7 fl (35.1-43.9); Red Blood Count 4.35 M/mm3 (4.2-5.4); White Blood Count 12.4 K/mm3 (4.4-11.0)
[2024-01-05 14:32] LABS: Differential Indicated SCAN CRITERIA MET
[2024-01-05 14:44] LABS: ALB/GLOB Ratio 1.2 RATIO (0.9-2.4); AST(SGOT) 22 U/L (15-37); Alanine Aminotransfer ALT/SGPT 25 U/L (13-56); Albumin, Serum 4.3 g/dL (3.2-5.0); Alkaline Phosphatase 88 U/L (45-117); Anion Gap 4 (5-15); BUN 9 mg/dL (7-18); BUN/Creat Ratio 16.7 RATIO (10-20); Calcium,Total 8.5 mg/dL (8.5-10.1); Chloride 103 mmol/L (98-107); Creatinine, Serum 0.54 mg/dL (0.55-1.02); EST Glomerular Filtration Rate 118 mL/min (>60); Est Glom Filt Rate - Afr Amer 143 mL/min (>60); Globulin 3.5 g/dL (2.2-4.2); Glucose 150 mg/dL (74-106); Potassium 3.3 mmol/L (3.5-5.1); Protein, Total 7.8 g/dL (6.4-8.2); Sodium Level 136 mmol/L (136-145)
--- NOTE | 2024-01-05 14:50 | CT_ITS ---
INDICATION: Abdominal pain, nausea and vomiting EXAMINATION: CT ABDOMEN AND PELVIS WITH CONTRAST - CT Abdomen And Pelvis W/ Contrast Injection TECHNIQUE: Helically acquired images were obtained of the abdomen and pelvis following IV contrast. A radiation dose optimization technique was used for this scan. IV Contrast dosage and agent: 75 cc Isovue-300 Oral contrast: None. COMPARISON: 09/19/2022 FINDINGS: LOWER CHEST: Lung bases are clear. No cardiomegaly or pericardial effusion. LIVER: Homogeneous. No focal mass. GALLBLADDER AND BILIARY TREE: No calcified gallstones. No gallbladder distension or wall edema. Stable 12 mm common bile duct, no choledocholithiasis. PANCREAS: No focal cystic or solid mass. SPLEEN: Normal size without focal cystic or solid mass. ADRENAL GLANDS: No nodules. KIDNEYS AND URETERS: Normal renal size and position. No hydronephrosis. PERITONEUM: No ascites or free air. BOWEL: Prior appendectomy. Marked fecal distention of the right colon. Increased colonic fecal burden throughout the remainder of the colon to the distal sigmoid colon. No focal inflammatory change. LYMPH NODES: No enlarged mesenteric or retroperitoneal lymph nodes. VESSELS: Aorta is non-dilated. URINARY BLADDER: Irregular bladder contours without significant wall thickening. REPRODUCTIVE ORGANS: No pelvic masses. ABDOMINAL WALL: No discrete abdominal or pelvic wall hernia. BONES: No acute or aggressive abnormality. CT/Abdomen/Pelvis W IV Cont ONLY IMPRESSION: Marked colonic fecal distention, particularly of the right colon, consistent with clinical constipation. Stable extrahepatic bile duct dilatation without evidence of choledocholithiasis. Electronically Signed: Héctor Arita MD at 16:27 EDT ,
[2024-01-05 14:52] VITALS: PULSE 143; RESP 19; O2SAT 99
[2024-01-05 15:00] VITALS: BP 111/73; PULSE 144; RESP 17; O2SAT 99
--- NOTE | 2024-01-05 15:01 | EKG12_ITS ---
Test Reason : Blood Pressure : / mmHG Vent. Rate : 135 BPM Atrial Rate : 135 BPM P-R Int : 150 ms QRS Dur : 074 ms QT Int : 292 ms P-R-T Axes : -09 -16 021 degrees QTc Int : 438 ms Sinus tachycardia Inferior infarct , age undetermined Cannot rule out Anterior infarct , age undetermined Abnormal ECG Confirmed by SOSA DENIS, SAMANTHA ([id number]), visual effects editor HEAVEN ALBERTS ([id number]) on 01/07/2024 1:42:50 PM Referred By: Confirmed By:SAMANTHA SWAN MD
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
[2024-01-05] MEDS: 0.9% Normal Saline (1000mL) 1,000 ML 999 ML IV (15:18)
[2024-01-05] MEDS: Ondansetron 4 MG/2 ML Vial IV (15:19)
[2024-01-05] MEDS: fentaNYL 100 MCG/2 ML Ampul 50 MCG IV (15:19)
[2024-01-05 16:00] VITALS: BP 111/77; PULSE 130; RESP 22
[2024-01-05 16:32] LABS: Mucous, Urine 0 SEEN /hpf (<or=2+); Squamous Epithelial Cells - UA 0 SEEN /hpf (5-10)
[2024-01-05 16:34] LABS: Color, Urine Yellow (Yellow); Glucose, Dipstick Normal (Normal); Ketone-Dipstick 50 mg/dl (Negative); Leukocyte Esterase-Dipstick 500 /ul (Negative); Nitrite-Dipstick Negative (Negative); Occult Blood-Urine 25 /ul (Negative); Protein-Dipstick 30 mg/dl (Negative); Urine Bilirubin Dipstick Negative (Negative); Urine Clarity Sl. Cloudy (Clear); Urine Urobilinogen Normal (Normal)
[2024-01-05 17:00] VITALS: BP 108/70; PULSE 127; RESP 14
[2024-01-05 17:16] LABS: Red Blood Cells-Urine 0-5 SEEN /hpf (0-5); Renal Epithelial Cells 0-5 SEEN /hpf (0-5); White Blood Cells 10-25 SEEN /hpf (0-5)
[2024-01-05 17:20] LABS: Bacteria 1+ /hpf (None Seen)
[2024-01-05 17:25] LABS: Lipase < 10 U/L (13-75)
[2024-01-05] MEDS: Morphine 4 MG/ML Syringe IV (17:29)
[2024-01-05 18:00] VITALS: BP 108/70; PULSE 127; RESP 14; TEMP 36.6; O2SAT 98
== END 2024-01-05 18:01 | disposition home or self-care (01) ==
PROVIDERS: Emergency Provider Emergency Medicine; PCP Family Medicine; Visit Provider Emergency Medicine
DX: R10.13 Epigastric pain (principal); K59.00 Constipation, unspecified; F41.9 Anxiety disorder, unspecified; F32.A Depression, unspecified; Z79.899 Other long term (current) drug therapy
CPT/HCPCS: 74177; 80053; 81001; 83690; 85025; 87077; 87086; 87088; 87186; 93005; 96361; 96374; 96375; 99283; J7030; Q9967; A4216; J2405

== ENCOUNTER 2024-01-27 11:00 | Outpatient (RCR) | payer MEDICARE, OTHER, SELFPAY ==
[2024-01-03 00:54] VITALS: BP 188/66; PULSE 68; RESP 16; TEMP 35.9; BMI 16.9
[2024-01-06 10:17] VITALS: BP 120/91; PULSE 129; RESP 16; TEMP 36.9; BMI 16.9
--- NOTE | 2024-01-06 11:25 | PN.PCM_ITS ---
History of Present Illness Date of Service: 01/06/24 Chief Complaint: Coccyx wound and right ischium left hip wounds History of Wound: Ms Perales is a 73-year-old female seen at the wound care center today for follow-up evaluation of a coccyx wounds it has been going on for over 1 year they have been using all sorts of different products but is only been seen by the home health care nurse and getting dressing changes twice a week. At this point it superficial and open stage II so we will try using some Fibracol on that area. 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 Patient states that the wounds on her right ischium is from scooting and friction and has been constant going on and off for 20 years it is closed at this time and flushing color she says it was she could get her finger inside the wound at 1 time but is healed now the left hip troc hanter is scabbed but it is healed it is not open and we will pad and protect both these areas for now and then my suggestion is were going to order some DuoDERM film patches to put over them to keep them from breaking open. Subjective Subjective Mrs. Perales 73-year-old female presenting wound care center today for follow-up evaluation of left foot full-thickness ulceration. Patient is nonambulatory and gets around in a wheelchair. She is on her oral antibiotic which she has noticed improvement to the left foot. She denies any malodor or drainage. She has left her dressing clean dry and intact. Denies any trauma. Denies constitutional symptoms. No other pedal complaints at this time. Objective Data Objective Data Vital Signs: Vital Signs Temp Pulse Resp BP O2 Del Method 98.4 F 129 H 16 120/91 H Room Air 01/06/24 10:17 01/06/24 10:17 01/06/24 10:17 01/06/24 10:17 01/06/24 10:17 Oxygen Delivery Method Room Air Weight: 40.551 kg Body Mass Index (BMI) 16.9 Physical Exam Narrative Vascular: DP and PT pulses are faintly palpable to left lower extremity. CFT is delayed. Skin temperature gradient is warm to cool from proximal ankle to distal digit. No erythema or proximal streaking is appreciated. Neurological: Light touch absent. Protective sensation is absent. Dermatological: Full-thickness ulceration to the first metatarsal phalangeal joint dorsally measuring 2.0 x 2.2 x 0.1 cm. Wound base is granular nature. No drainage or sign of infection. . Excisional debridement down to and including subcutaneous tissue with a number 5 mm dermal curette to the left foot ulceration at the level of the first metatarsal phalangeal joint without incident. Predebridement measurement was 1 .9 x 2.0 x 0.1 cm. Postdebridement measurement is 2.0 x 2.2 x 0.1 cm. EpiFix mesh 4.0 x 4.5 cm was applied to the left full-thickness ulceration with 100% use. Second application. The graft site was free and clear of any infection. The wound/skin graft substitute was dressed with nonadherent bandage secured in place with Steri-Strips followed by bolster dressing as well as a double layer Tubigrip. Musculoskeletal: Muscle strength is 0 out of 5 bilateral. No pain on palpation to the full-thickness wound. No pain with calf pressure. Debridement Note Debridement Note Debridement Free Text: Excisional debridement down to and including subcutaneous tissue with a number 5 mm dermal curette to the left foot ulceration at the level of the first metatarsal phalangeal joint without incident. Predebridement measurement was 1.9 x 2.0 x 0.1 cm. Postdebridement measurement is 2.0 x 2.2 x 0.1 cm. EpiFix mesh 4.0 x 4.5 cm was applied to the left full-thickness ulceration with 100% use. Second application. The graft site was free and clear of any infection. The wound/skin graft substitute was dressed with nonadherent bandage secured in place with Steri-Strips followed by bolster dressing as well as a double layer Tubigrip. 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 ) Arrival Mode Wheelchair Transfer Assistance Manual Transfer Assist (Other) 2 Patient Requires Transmission-Based No Precautions Height and Weight Body Mass Index (BMI) 16.9 BMI Classification Underweight Vital Signs Temperature (97.8 F-99.1 F) 98.4 F Temperature Source Temporal Pulse Rate (60-100) 129 H Pulse Location Monitor Respiratory Rate (12-18) 16 Respiratory rate source Observation Oxygen Delivery Method Room Air Blood Pressure (90/60-120/80) 120/91 H Blood Pressure Mean (mm Hg) 100 Source Monitor Position Sitting Blood Pressure Location Left Arm History Since Last Visit- (Skip if this is Patient's initial visit) Have you changed medications since your No last visit? Any new allergies or adverse reactions No Had a fall/change in ADL's that may No increase risk of falls Signs or symptoms of abuse and/or No neglect since last visit Have you been in the hospital since your No last visit? Has dressing in place as prescribed Yes Has compression in place as prescribed N/A Has offloadiing in place as prescribed Yes Experienced any changes in pain level or No management Pain Scale: 0-10 Numeric Is Patient Pain Free? No WC - Nurse 1 - General Ulcer Measurement Start: 01/06/24 10:09 Freq: Status: Active Protocol: Activity Type Activity Date Activity User E-sign Co-sign Detail Recorded Client Recorded Date Recorded By Document 01/06/24 10:17 CLAUS [id number] 01/06/24 10:25 CLAUS 01/06/24 10:17 Wound Center Nurse 1 13 COCCYX -Current Size (cm) - Length 1.5 -Current Size (cm) - Width 2 -Current Size (cm) - Depth 0.1 -Total Square Cm 3.0 -Exudate Amt Small -Exudate Type Serosanguineous -Granulation Amt Large (67-100%) -Granulation Quality [place] -Necrosis Amt Small (1-33%) -Necrotic Tissue Type Adherent Slough -Texture (Leyla-wound Skin Appearance) Assessed -Moisture (Leyla-wound Skin Appearance) Assessed -Color (Leyla-wound Skin Appearance) Assessed -Temperature (Leyla-wound Skin No Abnormality Appearance) (Pt Warm) -Tenderness on Palpation (Leyla-wound No Skin Appearance) -Ulcer Cleansing Rinsed/ Irrigated with Saline -Foul Odor after Cleansing No 12 L HIP -Current Size (cm) - Length 0.1 -Current Size (cm) - Width 0.1 -Current Size (cm) - Depth 0.1 -Total Square Cm 0.01 -Texture (Leyla-wound Skin Appearance) Assessed -Moisture (Leyla-wound Skin Appearance) Assessed -Color (Leyla-wound Skin Appearance) Assessed -Temperature (Leyla-wound Skin No Abnormality Appearance) (Pt Warm) -Tenderness on Palpation (Leyla-wound Yes Skin Appearance) -Ulcer Cleansing Rinsed/ Irrigated with Saline -Foul Odor after Cleansing No -Wound Comment(s) possibly healed #11 R ISCHIUM -Current Size (cm) - Length 0.3 -Current Size (cm) - Width 0.2 -Current Size (cm) - Depth 0.2 -Total Square Cm 0.06 -Exudate Amt Small -Exudate Type Serous -Wound Margin Distinct, Outline Attached -Granulation Amt Large (67-100%) -Granulation Quality [place] -Necrosis Amt Small (1-33%) -Necrotic Tissue Type Adherent Slough -Texture (Leyla-wound Skin Appearance) Assessed -Moisture (Leyla-wound Skin Appearance) Assessed -Color (Leyla-wound Skin Appearance) Assessed -Temperature (Leyla-wound Skin No Abnormality Appearance) (Pt Warm) -Tenderness on Palpation (Leyla-wound No Skin Appearance) -Ulcer Cleansing Rinsed/ Irrigated with Saline -Foul Odor after Cleansing No #10 left hallux -Current Size (cm) - Length 1.6 -Current Size (cm) - Width 2 -Current Size (cm) - Depth 0.3 -Total Square Cm 3.2 WC - Nurse 2 - General Ulcer CM Notes Start: 01/06/24 10:09 Freq: Status: Active Protocol: Activity Type Activity Date Activity User E-sign Co-sign Detail Recorded Client Recorded Date Recorded By Document 01/06/24 10:33 [id number] 01/06/24 10:38 CP Document 01/06/24 10:58 [facility] [id number] 01/06/24 11:03 [facility] 01/06/24 01/06/24 10:33 10:58 Wound Center Nurse 2 13 COCCYX -Time 10:58 -Correct Patient Yes -Correct Side, Site, Position Yes -Correct Procedure Yes -Procedure Performed Yes -Type of Procedure Debridement -Clinical Debridement Subcutaneous -Tissue Removed Subcutaneous -Post Debridement (cm) - Length 2 -Post Debridement (cm) - Width 2 -Post Debridement (cm) - Depth 0.1 -Total Square (Post) (cm) 4 -Area of Debridement (cm) - Length 2 -Area of Debridement (cm) - Width 2 -Total Square (Area) (cm) 4 -Tunneling No -Undermining/Tunneling No -Circular Undermining No -Wound/Ulcer Outcome Not Healed -Ulcer Cleansing Rinsed/ Irrigated with Saline -Foul Odor after Cleansing No -Bioengineered Tissue No -Bleeding Controlled with Pressure -Treatment Response Procedure Tolerated Well -Offloading No -Debridement - Subq, 1st 20sq cm Yes 12 L HIP -Time 11:02 -Post Debridement (cm) - Length 0.1 -Post Debridement (cm) - Width 0.1 -Post Debridement (cm) - Depth 0.1 -Total Square (Post) (cm) 0.01 -Area of Debridement (cm) - Length 0.1 -Area of Debridement (cm) - Width 0.1 -Total Square (Area) (cm) 0.01 -Bleeding Controlled with NA #11 R ISCHIUM -Time 11:03 -Post Debridement (cm) - Length 0.1 -Post Debridement (cm) - Width 0.1 -Post Debridement (cm) - Depth 0.1 -Total Square (Post) (cm) 0.01 -Area of Debridement (cm) - Length 0.1 -Area of Debridement (cm) - Width 0.1 -Total Square (Area) (cm) 0.01 -Bleeding Controlled with NA -Time 10:34 -Correct Patient Yes -Correct Side, Site, Position Yes -Correct Procedure Yes -Procedure Performed Yes -Type of Procedure Debridement -Clinical Debridement Subcutaneous -Tissue Removed Subcutaneous -Post Debridement (cm) - Length 2.0 -Post Debridement (cm) - Width 2.2 -Post Debridement (cm) - Depth 0.1 -Total Square (Post) (cm) 4.40 -Area of Debridement (cm) - Length 2.0 -Area of Debridement (cm) - Width 2.2 -Total Square (Area) (cm) 4.40 -Tunneling No -Undermining/Tunneling No -Circular Undermining No -Wound/Ulcer Outcome Not Healed -Ulcer Cleansing Rinsed/ Irrigated with Saline -Foul Odor after Cleansing No -Bioengineered Tissue Yes -Type of Bioengineered Tissue Epifix Mesh -Expiration Date 07/02/28 -Product Lot Number [id number] -Percent Used 100 -Lot number of Saline Used [id number] -Bleeding Controlled with Pressure -Treatment Response Procedure Tolerated Well -Offloading Yes -Type of Offloading Surgical Shoe -Debridement - Subq, 1st 20sq cm No -Apply Skin Sub - 1st 25 sq cm - Feet 1 -Epifix Mesh (per sq cm) 11 Pain Scale: 0-10 Numeric Is Patient Pain Free? Yes Yes - Nurse 3 - General Ulcer D/C NN Start: 01/06/24 10:09 Freq: Status: Active Protocol: Activity Type Activity Date Activity User E-sign Co-sign Detail Recorded Client Recorded Date Recorded By Document 01/06/24 10:48 CP [id number] 01/06/24 10:49 CP Document 01/06/24 11:20 DL [id number] 01/06/24 11:23 DL 01/06/24 01/06/24 10:48 11:20 Wound Care Center Nurse 3 13 COCCYX -Ulcer Cleansing Rinsed/ Irrigated with Saline -Foul Odor after Cleansing No -Primary Dressing Applied Fibracol Plus 4x4,Mepilex Border -Fibracol Plus 4x4 1 -Mepilex Border 1 12 L HIP -Primary Dressing Applied Mepilex Border -Mepilex Border 1 -Wound Comment(s) will resume duoderm at home #11 R ISCHIUM -Primary Dressing Applied Mepilex Border -Mepilex Border 1 -Wound Comment(s) will resume Duoderm at home #10 left hallux -Primary Dressing Covered/Secured with Dry Gauze & Roll Gauze, Secured with Tape Treatment Response Procedure Tolerated Well Pain Scale: 0-10 Numeric Is Patient Pain Free? No Yes - Visit Discharge Discharge Condition Stable Ambulatory Status Wheelchair Facility Type Home Health Orders Sent Yes Assessment/Plan Assessment/Plan (1) Non-pressure chronic ulcer of other part of left foot with fat layer exposed: CODE(S): L97.522 - Non-pressure chronic ulcer of other part of left foot with fat layer exposed PLAN: Patient was examined and evaluated. All findings were discussed with the patient. All questions were answered to the patient's satisfaction. Excisional debridement down to and including subcutaneous tissue with a number 5 mm dermal curette to the left foot ulceration at the level of the first metatarsal phalangeal joint without incident. Predebridement measurement was 1.9 x 2.0 x 0.1 cm. Postdebridement measurement is 2.0 x 2.2 x 0.1 cm. EpiFix mesh 4.0 x 4.5 cm was applied to the left full-thickness ulceration with 100% use. Second application. The graft site was free and clear of any infection. The wound/skin graft substitute was dressed with nonadherent bandage secured in place with Steri-Strips followed by bolster dressing as well as a double layer Tubigrip. Follow-up at the wound care center with Dr. Mota in 1 week.
--- NOTE | 2024-01-06 12:56 | PN.PCM_ITS ---
History of Present Illness Date of Service: 01/06/24 Chief Complaint: Coccyx wound and right ischium left hip wounds History of Wound: Ms Perales is a 73-year-old female seen at the wound care center today for follow-up evaluation of a coccyx wounds it has been going on for over 1 year they have been using all sorts of different products but is only been seen by the home health care nurse and getting dressing changes twice a week. At this point it superficial and open stage II so we will try using some Fibracol on that area. 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 Patient states that the wounds on her right ischium is from scooting and friction and has been constant going on and off for 20 years it is closed at this time and flushing color she says it was she could get her finger inside the wound at 1 time but is healed now the left hip troritu dickey is scabbed but it is healed it is not open and we will pad and protect both these areas for now and then my suggestion is were going to order some DuoDERM film patches to put over them to keep them from breaking open. Progress of Wound: The coccyx wound looks improved using the Fibracol. We applied DuoDERM's to the 9 open areas on the left hip and right ischium. Which seems to be protecting the skin very well and they are getting changed about twice a week which is good. Subjective Subjective Patient is pleased with outcomes Objective Data Objective Data Will continue with the same treatments to the coccyx and the ischium and hip area unless she opens more but she seems to be closed on those 2 areas were only dealing mostly with the coccyx slight opening stage II. Vital Signs: Vital Signs Temp Pulse Resp BP O2 Del Method 98.4 F 129 H 16 120/91 H Room Air 01/06/24 10:17 01/06/24 10:17 01/06/24 10:17 01/06/24 10:17 01/06/24 10:17 Oxygen Delivery Method Room Air Weight: 89 lb 6.4 oz Body Mass Index (BMI) 16.9 Lab / Micro Data Attestation: I reviewed the patient's lab results. Physical Exam Const oriented x3 General Appearance: cooperative Exam Limitations: no limitations HEENT normocephalic Head and Scalp: normal to inspection External Ear: external ears normal Eyes PERRL General Eye: normal appearance of both eyes Neck full ROM General: normal visual inspection Resp normal respiratory effort Effort and Inspection: able to speak in complete sentences Auscultation: clear to auscultation bilaterally Cardio regular rate and regular rhythm Palpation: normal PMI Rate: regular rate Rhythm: regular rhythm Back/Spine Back/Spine Narrative: Paralysis from waist down Cervical Spine: cervical ROM normal Pelvis: buttocks abnormal and other soft tissue findings Wound on her coccyx area Skin no rashes or lesions noted Wounds: wounds noted Wound Narrative: Open wound on coccyx stage II more superficial of the right ischium and left trochanter areas are healed at this time but have tendency to open and close with shearing Neuro oriented x3 Psych Appearance: grossly normal Speech: normal speech Thought Content: normal thought content Judgement: judgement good Debridement Note Debridement Note Wound debrided: Coccyx Wound Grade/Stage: Stage II Type of Debridement: Excisional debridement Anesthesia Used: 5% Lidocaine Gel Depth: Down to and including healthy tissue Percentage of wound debrided: 100 Instrument Used: 5mm curette Tissue Removed: Fibrin Severity: Fat Layer Exposed Amount of bleeding with debridement: Mild Bleeding Controlled with: Compression and gauze Patient tolerated procedure: Patient tolerated procedure well Post-Debridement Measurements and Additional Note: Post-Debridement Measurements/Treatment - Nurse 1 - General Ulcer Assessment Start: 01/06/24 10:09 Freq: Status: Active Protocol: JOSEPHINE Activity Type Activity Date Activity User E-sign Co-sign Detail Recorded Client Recorded Date Recorded By Document 01/06/24 10:17 [id number] 01/06/24 10:25 01/06/24 10:17 - Today's Visit Information Type of service Follow-up Visit (Physician/CONFERENCE CONCIERGE ) Arrival Mode Wheelchair Transfer Assistance Manual Transfer Assist (Other) 2 Patient Requires Transmission-Based No Precautions Height and Weight Body Mass Index (BMI) 16.9 BMI Classification Underweight Vital Signs Temperature (97.8 F-99.1 F) 98.4 F Temperature Source Temporal Pulse Rate (60-100) 129 H Pulse Location Monitor Respiratory Rate (12-18) 16 Respiratory rate source Observation Oxygen Delivery Method Room Air Blood Pressure (90/60-120/80) 120/91 H Blood Pressure Mean (mm Hg) 100 Source Monitor Position Sitting Blood Pressure Location Left Arm History Since Last Visit- (Skip if this is Patient's initial visit) Have you changed medications since your No last visit? Any new allergies or adverse reactions No Had a fall/change in ADL's that may No increase risk of falls Signs or symptoms of abuse and/or No neglect since last visit Have you been in the hospital since your No last visit? Has dressing in place as prescribed Yes Has compression in place as prescribed N/A Has offloadiing in place as prescribed Yes Experienced any changes in pain level or No management Pain Scale: 0-10 Numeric Is Patient Pain Free? No WC - Nurse 1 - General Ulcer Measurement Start: 01/06/24 10:09 Freq: Status: Active Protocol: Activity Type Activity Date Activity User E-sign Co-sign Detail Recorded Client Recorded Date Recorded By Document 01/06/24 10:17 CLAUS [id number] 01/06/24 10:25 CLAUS 01/06/24 10:17 Wound Center Nurse 1 13 COCCYX -Current Size (cm) - Length 1.5 -Current Size (cm) - Width 2 -Current Size (cm) - Depth 0.1 -Total Square Cm 3.0 -Exudate Amt Small -Exudate Type Serosanguineous -Granulation Amt Large (67-100%) -Granulation Quality [place] -Necrosis Amt Small (1-33%) -Necrotic Tissue Type Adherent Slough -Texture (Leyla-wound Skin Appearance) Assessed -Moisture (Leyla-wound Skin Appearance) Assessed -Color (Leyla-wound Skin Appearance) Assessed -Temperature (Leyla-wound Skin No Abnormality Appearance) (Pt Warm) -Tenderness on Palpation (Leyla-wound No Skin Appearance) -Ulcer Cleansing Rinsed/ Irrigated with Saline -Foul Odor after Cleansing No 12 L HIP -Current Size (cm) - Length 0.1 -Current Size (cm) - Width 0.1 -Current Size (cm) - Depth 0.1 -Total Square Cm 0.01 -Texture (Leyla-wound Skin Appearance) Assessed -Moisture (Leyla-wound Skin Appearance) Assessed -Color (Leyla-wound Skin Appearance) Assessed -Temperature (Leyla-wound Skin No Abnormality Appearance) (Pt Warm) -Tenderness on Palpation (Leyla-wound Yes Skin Appearance) -Ulcer Cleansing Rinsed/ Irrigated with Saline -Foul Odor after Cleansing No -Wound Comment(s) possibly healed #11 R ISCHIUM -Current Size (cm) - Length 0.3 -Current Size (cm) - Width 0.2 -Current Size (cm) - Depth 0.2 -Total Square Cm 0.06 -Exudate Amt Small -Exudate Type Serous -Wound Margin Distinct, Outline Attached -Granulation Amt Large (67-100%) -Granulation Quality [place] -Necrosis Amt Small (1-33%) -Necrotic Tissue Type Adherent Slough -Texture (Leyla-wound Skin Appearance) Assessed -Moisture (Leyla-wound Skin Appearance) Assessed -Color (Leyla-wound Skin Appearance) Assessed -Temperature (Leyla-wound Skin No Abnormality Appearance) (Pt Warm) -Tenderness on Palpation (Leyla-wound No Skin Appearance) -Ulcer Cleansing Rinsed/ Irrigated with Saline -Foul Odor after Cleansing No #10 left hallux -Current Size (cm) - Length 1.6 -Current Size (cm) - Width 2 -Current Size (cm) - Depth 0.3 -Total Square Cm 3.2 WC - Nurse 2 - General Ulcer CM Notes Start: 01/06/24 10:09 Freq: Status: Active Protocol: Activity Type Activity Date Activity User E-sign Co-sign Detail Recorded Client Recorded Date Recorded By Document 01/06/24 10:33 [id number] 01/06/24 10:38 Document 01/06/24 10:58 [facility] [id number] 01/06/24 11:03 [facility] 01/06/24 01/06/24 10:33 10:58 Wound Center Nurse 2 13 COCCYX -Time 10:58 -Correct Patient Yes -Correct Side, Site, Position Yes -Correct Procedure Yes -Procedure Performed Yes -Type of Procedure Debridement -Clinical Debridement Subcutaneous -Tissue Removed Subcutaneous -Post Debridement (cm) - Length 2 -Post Debridement (cm) - Width 2 -Post Debridement (cm) - Depth 0.1 -Total Square (Post) (cm) 4 -Area of Debridement (cm) - Length 2 -Area of Debridement (cm) - Width 2 -Total Square (Area) (cm) 4 -Tunneling No -Undermining/Tunneling No -Circular Undermining No -Wound/Ulcer Outcome Not Healed -Ulcer Cleansing Rinsed/ Irrigated with Saline -Foul Odor after Cleansing No -Bioengineered Tissue No -Bleeding Controlled with Pressure -Treatment Response Procedure Tolerated Well -Offloading No -Debridement - Subq, 1st 20sq cm Yes 12 L HIP -Time 11:02 -Post Debridement (cm) - Length 0.1 -Post Debridement (cm) - Width 0.1 -Post Debridement (cm) - Depth 0.1 -Total Square (Post) (cm) 0.01 -Area of Debridement (cm) - Length 0.1 -Area of Debridement (cm) - Width 0.1 -Total Square (Area) (cm) 0.01 -Bleeding Controlled with NA #11 R ISCHIUM -Time 11:03 -Post Debridement (cm) - Length 0.1 -Post Debridement (cm) - Width 0.1 -Post Debridement (cm) - Depth 0.1 -Total Square (Post) (cm) 0.01 -Area of Debridement (cm) - Length 0.1 -Area of Debridement (cm) - Width 0.1 -Total Square (Area) (cm) 0.01 -Bleeding Controlled with NA -Time 10:34 -Correct Patient Yes -Correct Side, Site, Position Yes -Correct Procedure Yes -Procedure Performed Yes -Type of Procedure Debridement -Clinical Debridement Subcutaneous -Tissue Removed Subcutaneous -Post Debridement (cm) - Length 2.0 -Post Debridement (cm) - Width 2.2 -Post Debridement (cm) - Depth 0.1 -Total Square (Post) (cm) 4.40 -Area of Debridement (cm) - Length 2.0 -Area of Debridement (cm) - Width 2.2 -Total Square (Area) (cm) 4.40 -Tunneling No -Undermining/Tunneling No -Circular Undermining No -Wound/Ulcer Outcome Not Healed -Ulcer Cleansing Rinsed/ Irrigated with Saline -Foul Odor after Cleansing No -Bioengineered Tissue Yes -Type of Bioengineered Tissue Epifix Mesh -Expiration Date 07/02/28 -Product Lot Number [id number] -Percent Used 100 -Lot number of Saline Used [id number] -Bleeding Controlled with Pressure -Treatment Response Procedure Tolerated Well -Offloading Yes -Type of Offloading Surgical Shoe -Debridement - Subq, 1st 20sq cm No -Apply Skin Sub - 1st 25 sq cm - Feet 1 -Epifix Mesh (per sq cm) 11 Pain Scale: 0-10 Numeric Is Patient Pain Free? Yes Yes WC - Nurse 3 - General Ulcer D/C NN Start: 01/06/24 10:09 Freq: Status: Active Protocol: Activity Type Activity Date Activity User E-sign Co-sign Detail Recorded Client Recorded Date Recorded By Document 01/06/24 10:48 CP [id number] 01/06/24 10:49 CP Document 01/06/24 11:20 DL [id number] 01/06/24 11:23 DL 01/06/24 01/06/24 10:48 11:20 Wound Care Center Nurse 3 13 COCCYX -Ulcer Cleansing Rinsed/ Irrigated with Saline -Foul Odor after Cleansing No -Primary Dressing Applied Fibracol Plus 4x4,Mepilex Border -Fibracol Plus 4x4 1 -Mepilex Border 1 12 L HIP -Primary Dressing Applied Mepilex Border -Mepilex Border 1 -Wound Comment(s) will resume duoderm at home #11 R ISCHIUM -Primary Dressing Applied Mepilex Border -Mepilex Border 1 -Wound Comment(s) will resume Duoderm at home #10 left hallux -Primary Dressing Covered/Secured with Dry Gauze & Roll Gauze, Secured with Tape Treatment Response Procedure Tolerated Well Pain Scale: 0-10 Numeric Is Patient Pain Free? No Yes WC - Visit Discharge Discharge Condition Stable Ambulatory Status Wheelchair Facility Type Home Health Orders Sent Yes Additional Wound Wound debrided: Right ischium Laterality: Right Wound Grade/Stage: Stage I Type of Debridement: Selective debridement Anesthesia Used: 5% Lidocaine Gel Depth: Down to and including healthy tissue Percentage of wound debrided: 100 Instrument Used: - (Gauze) Tissue Removed: Fibrin Severity: Limited To Skin Breakdown Amount of bleeding with debridement: None Bleeding Controlled with: Pressure Patient tolerated procedure: Patient tolerated procedure well Additional Wound Wound debrided: Left hip trochanter Wound Grade/Stage: Stage I Type of Debridement: Selective debridement Anesthesia Used: 5% Lidocaine Gel Depth: Down to and including healthy tissue Percentage of wound debrided: 100 Instrument Used: - (Gauze) Tissue Removed: Fibrin Severity: Limited To Skin Breakdown Amount of bleeding with debridement: None Bleeding Controlled with: Pressure Patient tolerated procedure: Patient tolerated procedure well Assessment/Plan Assessment/Plan (1) Decubitus ulcer of sacral region, stage 2: CODE(S): L89.152 - Pressure ulcer of sacral region, stage 2 PLAN: Wash the area with antibacterial soap and water pat dry apply Fibracol moistened to the wound base cover with an absorbent pad a dressing every day Follow-up in 1 week (2) Decubitus ulcer of right ischium, stage 1: CODE(S): L89.311 - Pressure ulcer of right buttock, stage 1 PLAN: Wash the area with antibacterial soap and water pat dry apply padded dressing to area and also bring in the DuoDERM next week and we will apply 1-2 times a day Follow-up in 1 week (3) Decubitus ulcer of left hip, stage 1: CODE(S): L89.221 - Pressure ulcer of left hip, stage 1 PLAN: Wash area with antibacterial soap and water apply padding to the area and when she receives the DuoDERM bring them and we will apply them. 1-2 times a day
[2024-01-20 11:08] VITALS: BP 115/64; PULSE 61; RESP 18; TEMP 37; BMI 16.9
--- NOTE | 2024-01-20 12:24 | PCM.WC.PN ---
History of Present Illness Date of Service: 01/20/24 Chief Complaint: Coccyx wound and right ischium left hip wounds History of Wound: Ms Perales is a 73-year-old female seen at the wound care center today for follow-up evaluation of a coccyx wounds it has been going on for over 1 year they have been using all sorts of different products but is only been seen by the home health care nurse and getting dressing changes twice a week. At this point it superficial and open stage II so we will try using some Fibracol on that area. 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 Patient states that the wounds on her right ischium is from scooting and friction and has been constant going on and off for 20 years it is closed at this time and flushing color she says it was she could get her finger inside the wound at 1 time but is healed now the left hip trochanter is scabbed but it is healed it is not open and we will pad and protect both these areas for now and then my suggestion is were going to order some DuoDERM film patches to put over them to keep them from breaking open. Progress of Wound: The coccyx wound looks improved and healed using the Fibracol. We applied DuoDERM's to the 9 open areas on the left hip and right ischium. Which seems to be protecting the skin very well and they are getting changed about twice a week which is good. This area is healed also in the ischium patient will be discharged from the wound center Subjective Subjective Patient is very pleased she has not have to come back Objective Data Objective Data Coccyx area has healed and both right and left ischium's are healed Vital Signs: Vital Signs Temp Pulse Resp BP O2 Del Method 98.6 F 61 18 115/64 Room Air 01/20/24 11:08 01/20/24 11:08 01/20/24 11:08 01/20/24 11:08 01/06/24 10:17 Oxygen Delivery Method Room Air Weight: 89 lb 6.4 oz Body Mass Index (BMI) 16.9 Lab / Micro Data Attestation: I reviewed the patient's lab results. Physical Exam Const oriented x3 General Appearance: cooperative Exam Limitations: no limitations HEENT normocephalic Head and Scalp: normal to inspection External Ear: external ears normal Eyes PERRL General Eye: normal appearance of both eyes Neck full ROM General: normal visual inspection Resp normal respiratory effort Effort and Inspection: able to speak in complete sentences Auscultation: clear to auscultation bilaterally Cardio regular rate and regular rhythm Palpation: normal PMI Rate: regular rate Rhythm: regular rhythm Back/Spine Back/Spine Narrative: Paralysis from waist down Cervical Spine: cervical ROM normal Pelvis: buttocks abnormal and other soft tissue findings Wound on her coccyx area Skin no rashes or lesions noted Wounds: wounds noted Wound Narrative: Open wound on coccyx stage II more superficial of the right ischium and left trochanter areas are healed at this time but have tendency to open and close with shearing Neuro oriented x3 Psych Appearance: grossly normal Speech: normal speech Thought Content: normal thought content Judgement: judgement good Debridement Note Debridement Note No debridement was completed: No debridement was completed today Post-Debridement Measurements and Additional Note: Post-Debridement Measurements/Treatment - Nurse 1 - General Ulcer Assessment Start: 01/06/24 10:09 Freq: Status: Active Protocol: JOSEPHINE Activity Type Activity Date Activity User E-sign Co-sign Detail Recorded Client Recorded Date Recorded By Document 01/06/24 10:17 CP [id number] 01/06/24 10:25 CP Document 01/20/24 11:08 RB [id number] 01/20/24 11:19 RB 01/06/24 01/20/24 10:17 11:08 - Today's Visit Information Type of service Follow-up Visit Follow-up Visit (Physician/[facility]PER[facility] (Physician/[facility] ) ) Arrival Mode Wheelchair Wheelchair Transfer Assistance Manual Manual Transfer Assist (Other) 2 Patient Identification Verified (Name & Yes ) Patient Requires Transmission-Based No No Precautions Height and Weight Body Mass Index (BMI) 16.9 16.9 BMI Classification Underweight Underweight Vital Signs Temperature (97.8 F-99.1 F) 98.4 F 98.6 F Temperature Source Temporal Temporal Pulse Rate (60-100) 129 H 61 Pulse Location Monitor Monitor Respiratory Rate (12-18) 16 18 Respiratory rate source Observation Observation Oxygen Delivery Method Room Air Blood Pressure (90/60-120/80) 120/91 H 115/64 Blood Pressure Mean (mm Hg) 100 81 Source Monitor Monitor Position Sitting Semi-Fowlers Blood Pressure Location Left Arm Left Arm History Since Last Visit- (Skip if this is Patient's initial visit) Have you changed medications since your No No last visit? Any new allergies or adverse reactions No No Had a fall/change in ADL's that may No No increase risk of falls Signs or symptoms of abuse and/or No No neglect since last visit Have you been in the hospital since your No No last visit? Has dressing in place as prescribed Yes Yes Has compression in place as prescribed N/A No Has offloadiing in place as prescribed Yes No Experienced any changes in pain level or No No management Pain Scale: 0-10 Numeric Is Patient Pain Free? No Yes WC - Nurse 1 - General Ulcer Measurement Start: 01/06/24 10:09 Freq: Status: Active Protocol: Activity Type Activity Date Activity User E-sign Co-sign Detail Recorded Client Recorded Date Recorded By Document 01/06/24 10:17 CP [id number] 01/06/24 10:25 CP Document 01/20/24 11:08 RB [id number] 01/20/24 11:19 RB 01/06/24 01/20/24 10:17 11:08 Wound Center Nurse 1 13 COCCYX -Combined with other wound No -Current Size (cm) - Length 1.5 0.8 -Current Size (cm) - Width 2 1.5 -Current Size (cm) - Depth 0.1 0.1 -Total Square Cm 3.0 1.20 -Tunneling No -Undermining/Tunneling No -Circular Undermining No -Exudate Amt Small Medium -Exudate Type Serosanguineous Serosanguineous -Wound Margin Distinct, Outline Attached -Granulation Amt Large (67-100%) Medium (34-66%) -Granulation Quality [place] -Slough/Fibrin Yes -Necrosis Amt Small (1-33%) Large (67-100%) -Necrotic Tissue Type Adherent Slough Adherent Slough -Structure Exposed N/A -Texture (Leyla-wound Skin Appearance) Assessed Assessed, Scarring -Moisture (Leyla-wound Skin Appearance) Assessed Assessed -Color (Leyla-wound Skin Appearance) Assessed Assessed -Temperature (Leyla-wound Skin No Abnormality No Abnormality Appearance) (Pt Warm) (Pt Warm) -Tenderness on Palpation (Leyla-wound No No Skin Appearance) -Ulcer Cleansing Rinsed/ Wound Cleanser Irrigated with Saline -Foul Odor after Cleansing No No 12 L HIP -Combined with other wound No -Current Size (cm) - Length 0.1 0 -Current Size (cm) - Width 0.1 0 -Current Size (cm) - Depth 0.1 0 -Total Square Cm 0.01 0 -Photo Taken Yes -Epithelialization Large 67-100% -Texture (Leyla-wound Skin Appearance) Assessed -Moisture (Leyla-wound Skin Appearance) Assessed -Color (Leyla-wound Skin Appearance) Assessed -Temperature (Leyla-wound Skin No Abnormality Appearance) (Pt Warm) -Tenderness on Palpation (Leyla-wound Yes Skin Appearance) -Ulcer Cleansing Rinsed/ Irrigated with Saline -Foul Odor after Cleansing No -Wound Comment(s) possibly healed #11 R ISCHIUM -Combined with other wound No -Current Size (cm) - Length 0.3 0.5 -Current Size (cm) - Width 0.2 0.5 -Current Size (cm) - Depth 0.2 0.1 -Total Square Cm 0.06 0.25 -Tunneling No -Undermining/Tunneling No -Circular Undermining No -Exudate Amt Small Medium -Exudate Type Serous Serosanguineous -Wound Margin Distinct, Distinct, Outline Outline Attached Attached -Granulation Amt Large (67-100%) Medium (34-66%) -Granulation Quality [place] -Slough/Fibrin Yes -Necrosis Amt Small (1-33%) Large (67-100%) -Necrotic Tissue Type Adherent Slough Adherent Slough -Structure Exposed N/A -Texture (Leyla-wound Skin Appearance) Assessed Assessed -Moisture (Leyla-wound Skin Appearance) Assessed Assessed -Color (Leyla-wound Skin Appearance) Assessed Assessed -Temperature (Leyla-wound Skin No Abnormality No Abnormality Appearance) (Pt Warm) (Pt Warm) -Tenderness on Palpation (Leyla-wound No No Skin Appearance) -Ulcer Cleansing Rinsed/ Wound Cleanser Irrigated with Saline -Foul Odor after Cleansing No No #10 left hallux -Combined with other wound No -Current Size (cm) - Length 1.6 2 -Current Size (cm) - Width 2 2.1 -Current Size (cm) - Depth 0.3 0.2 -Total Square Cm 3.2 4.2 -Tunneling No -Undermining/Tunneling No -Circular Undermining No -Exudate Amt Medium -Exudate Type Serosanguineous -Wound Margin Distinct, Outline Attached -Granulation Amt Medium (34-66%) -Granulation Quality [place],Red -Slough/Fibrin Yes -Necrosis Amt Medium (34-66%) -Necrotic Tissue Type Adherent Slough -Structure Exposed N/A -Texture (Leyla-wound Skin Appearance) Assessed -Moisture (Leyla-wound Skin Appearance) Assessed, Maceration -Color (Leyla-wound Skin Appearance) Assessed -Temperature (Leyla-wound Skin No Abnormality Appearance) (Pt Warm) -Tenderness on Palpation (Leyla-wound No Skin Appearance) -Ulcer Cleansing Wound Cleanser -Foul Odor after Cleansing No WC - Nurse 2 - General Ulcer CM Notes Start: 01/06/24 10:09 Freq: Status: Active Protocol: Activity Type Activity Date Activity User E-sign Co-sign Detail Recorded Client Recorded Date Recorded By Document 01/06/24 10:33 CP [id number] 01/06/24 10:38 CP Document 01/06/24 10:58 [facility] [id number] 01/06/24 11:03 [facility] Document 01/20/24 11:23 BM [id number] 01/20/24 11:27 [facility] Document 01/20/24 11:52 [id number] 01/20/24 11:55 01/06/24 01/06/24 01/20/24 10:33 10:58 11:23 Wound Center Nurse 2 13 COCCYX -Time 10:58 -Correct Patient Yes -Correct Side, Site, Position Yes -Correct Procedure Yes -Procedure Performed Yes -Type of Procedure Debridement -Clinical Debridement Subcutaneous -Tissue Removed Subcutaneous -Post Debridement (cm) - Length 2 0 -Post Debridement (cm) - Width 2 0 -Post Debridement (cm) - Depth 0.1 0 -Total Square (Post) (cm) 4 0 -Area of Debridement (cm) - Length 2 0 -Area of Debridement (cm) - Width 2 0 -Total Square (Area) (cm) 4 0 -Tunneling No -Undermining/Tunneling No -Circular Undermining No -Wound/Ulcer Outcome Not Healed Healed- Epithelialized -Ulcer Cleansing Rinsed/ Irrigated with Saline -Foul Odor after Cleansing No -Bioengineered Tissue No -Bleeding Controlled with Pressure -Treatment Response Procedure Tolerated Well -Offloading No -Debridement - Subq, 1st 20sq cm Yes 12 L HIP -Time 11:02 -Post Debridement (cm) - Length 0.1 0 -Post Debridement (cm) - Width 0.1 0 -Post Debridement (cm) - Depth 0.1 0 -Total Square (Post) (cm) 0.01 0 -Area of Debridement (cm) - Length 0.1 0 -Area of Debridement (cm) - Width 0.1 0 -Total Square (Area) (cm) 0.01 0 -Wound/Ulcer Outcome Healed- Epithelialized -Bleeding Controlled with NA #11 R ISCHIUM -Time 11:03 -Post Debridement (cm) - Length 0.1 0 -Post Debridement (cm) - Width 0.1 0 -Post Debridement (cm) - Depth 0.1 0 -Total Square (Post) (cm) 0.01 0 -Area of Debridement (cm) - Length 0.1 0 -Area of Debridement (cm) - Width 0.1 -Total Square (Area) (cm) 0.01 -Wound/Ulcer Outcome Healed- Epithelialized -Bleeding Controlled with NA #10 left hallux -Time 10:34 -Correct Patient Yes -Correct Side, Site, Position Yes -Correct Procedure Yes -Procedure Performed Yes -Type of Procedure Debridement -Clinical Debridement Subcutaneous -Tissue Removed Subcutaneous -Post Debridement (cm) - Length 2.0 -Post Debridement (cm) - Width 2.2 -Post Debridement (cm) - Depth 0.1 -Total Square (Post) (cm) 4.40 -Area of Debridement (cm) - Length 2.0 -Area of Debridement (cm) - Width 2.2 -Total Square (Area) (cm) 4.40 -Tunneling No -Undermining/Tunneling No -Circular Undermining No -Wound/Ulcer Outcome Not Healed -Ulcer Cleansing Rinsed/ Irrigated with Saline -Foul Odor after Cleansing No -Bioengineered Tissue Yes -Type of Bioengineered Tissue Epifix Mesh -Expiration Date 07/02/28 -Product Lot Number [id number] -Percent Used 100 -Lot number of Saline Used [id number] -Bleeding Controlled with Pressure -Treatment Response Procedure Tolerated Well -Offloading Yes -Type of Offloading Surgical Shoe -Debridement - Subq, 1st 20sq cm No -Apply Skin Sub - 1st 25 sq cm - Feet 1 -Epifix (per sq cm) -Epifix Mesh (per sq cm) 11 Pain Scale: 0-10 Numeric Is Patient Pain Free? Yes Yes Yes 09/18/24 11:52 Wound Center Nurse 2 13 COCCYX -Time -Correct Patient -Correct Side, Site, Position -Correct Procedure -Procedure Performed -Type of Procedure -Clinical Debridement -Tissue Removed -Post Debridement (cm) - Length -Post Debridement (cm) - Width -Post Debridement (cm) - Depth -Total Square (Post) (cm) -Area of Debridement (cm) - Length -Area of Debridement (cm) - Width -Total Square (Area) (cm) -Tunneling -Undermining/Tunneling -Circular Undermining -Wound/Ulcer Outcome -Ulcer Cleansing -Foul Odor after Cleansing -Bioengineered Tissue -Bleeding Controlled with -Treatment Response -Offloading -Debridement - Subq, 1st 20sq cm 12 L HIP -Time -Post Debridement (cm) - Length -Post Debridement (cm) - Width -Post Debridement (cm) - Depth -Total Square (Post) (cm) -Area of Debridement (cm) - Length -Area of Debridement (cm) - Width -Total Square (Area) (cm) -Wound/Ulcer Outcome -Bleeding Controlled with #11 R ISCHIUM -Time -Post Debridement (cm) - Length -Post Debridement (cm) - Width -Post Debridement (cm) - Depth -Total Square (Post) (cm) -Area of Debridement (cm) - Length -Area of Debridement (cm) - Width -Total Square (Area) (cm) -Wound/Ulcer Outcome -Bleeding Controlled with #10 left hallux -Time 11:53 -Correct Patient Yes -Correct Side, Site, Position Yes -Correct Procedure Yes -Procedure Performed Yes -Type of Procedure Debridement -Clinical Debridement Subcutaneous -Tissue Removed Subcutaneous -Post Debridement (cm) - Length 2 -Post Debridement (cm) - Width 2 -Post Debridement (cm) - Depth 0.1 -Total Square (Post) (cm) 4 -Area of Debridement (cm) - Length 2 -Area of Debridement (cm) - Width 2 -Total Square (Area) (cm) 4 -Tunneling No -Undermining/Tunneling No -Circular Undermining No -Wound/Ulcer Outcome Not Healed -Ulcer Cleansing Rinsed/ Irrigated with Saline -Foul Odor after Cleansing No -Bioengineered Tissue Yes -Type of Bioengineered Tissue Epifix -Expiration Date 08/05/28 -Product Lot Number [id number] -Percent Used 100 -Lot number of Saline Used [id number] -Bleeding Controlled with Pressure -Treatment Response Procedure Tolerated Well -Offloading Yes -Type of Offloading Surgical Shoe -Debridement - Subq, 1st 20sq cm No -Apply Skin Sub - 1st 25 sq cm - Feet 1 -Epifix (per sq cm) 4 -Epifix Mesh (per sq cm) Pain Scale: 0-10 Numeric Is Patient Pain Free? Yes WC - Nurse 3 - General Ulcer D/C NN Start: 01/06/24 10:09 Freq: Status: Active Protocol: Activity Type Activity Date Activity User E-sign Co-sign Detail Recorded Client Recorded Date Recorded By Document 01/06/24 10:48 CP [id number] 01/06/24 10:49 CP Document 01/06/24 11:20 DL [id number] 01/06/24 11:23 DL Document 01/20/24 11:40 DL [id number] 01/20/24 11:41 DL Document 01/20/24 12:06 GM [id number] 01/20/24 12:07 GM 01/06/24 01/06/24 01/20/24 10:48 11:20 11:40 Wound Care Center Nurse 3 13 COCCYX -Ulcer Cleansing Rinsed/ Rinsed/ Irrigated with Irrigated with Saline Saline -Foul Odor after Cleansing No No -Primary Dressing Applied Fibracol Plus Fibracol Plus 4x4,Mepilex 4x4,Mepilex Border Border -Fibracol Plus 4x4 1 1 -Mepilex Border 1 1 12 L HIP -Ulcer Cleansing Rinsed/ Irrigated with Saline -Primary Dressing Applied Mepilex Border Mepilex Border -Mepilex Border 1 1 -Wound Comment(s) will resume duoderm at home #11 R ISCHIUM -Ulcer Cleansing Rinsed/ Irrigated with Saline -Primary Dressing Applied Mepilex Border Mepilex Border -Mepilex Border 1 1 -Wound Comment(s) will resume Duoderm at home #10 left hallux -Ulcer Cleansing -Foul Odor after Cleansing -Primary Dressing Covered/Secured with Dry Gauze & Roll Gauze, Secured with Tape Left -Lotion applied to leg before compression wrap -Tubular Bandage -Size of Tubigrip Used -Size E ($) Treatment Response Procedure Tolerated Well Pain Scale: 0-10 Numeric Is Patient Pain Free? No Yes Yes WC - Visit Discharge Discharge Condition Stable Ambulatory Status Wheelchair Transportation Facility Type Home Health Orders Sent Yes 01/20/24 12:06 Wound Care Center Nurse 3 13 COCCYX -Ulcer Cleansing -Foul Odor after Cleansing -Primary Dressing Applied -Fibracol Plus 4x4 -Mepilex Border 12 L HIP -Ulcer Cleansing -Primary Dressing Applied -Mepilex Border -Wound Comment(s) #11 R ISCHIUM -Ulcer Cleansing -Primary Dressing Applied -Mepilex Border -Wound Comment(s) #10 left hallux -Ulcer Cleansing Not Cleansed -Foul Odor after Cleansing No -Primary Dressing Covered/Secured with Dry Gauze & Roll Gauze, Secured with Tape Left -Lotion applied to leg before No compression wrap -Tubular Bandage Single Layer -Size of Tubigrip Used Size E -Size E ($) 1 Treatment Response Pain Scale: 0-10 Numeric Is Patient Pain Free? Yes WC - Visit Discharge Discharge Condition Stable Ambulatory Status Wheelchair Transportation Private [facility] Facility Type Orders Sent Assessment/Plan Assessment/Plan (1) Decubitus ulcer of sacral region, stage 2: CODE(S): L89.152 - Pressure ulcer of sacral region, stage 2 PLAN: Wash the area with antibacterial soap and water pat dry apply Fibracol moistened to the wound base cover with an absorbent pad a dressing every day Follow-up in 1 week (2) Decubitus ulcer of right ischium, stage 1: CODE(S): L89.311 - Pressure ulcer of right buttock, stage 1 PLAN: Continue to pad with fibber call and padded dressing to area. (3) Decubitus ulcer of left hip, stage 1: CODE(S): L89.221 - Pressure ulcer of left hip, stage 1 PLAN: Continue using the DuoDERM to the hips and ischium's as needed 1-2 times a week Discharge from the wound center follow-up as needed
--- NOTE | 2024-01-20 12:53 | PN.PCM_ITS ---
History of Present Illness Date of Service: 01/20/24 Chief Complaint: Coccyx wound and right ischium left hip wounds History of Wound: Ms Perales is a 73-year-old female seen at the wound care center today for follow-up evaluation of a coccyx wounds it has been going on for over 1 year they have been using all sorts of different products but is only been seen by the home health care nurse and getting dressing changes twice a week. At this point it superficial and open stage II so we will try using some Fibracol on that area. 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 Patient states that the wounds on her right ischium is from scooting and friction and has been constant going on and off for 20 years it is closed at this time and flushing color she says it was she could get her finger inside the wound at 1 time but is healed now the left hip troc hanter is scabbed but it is healed it is not open and we will pad and protect both these areas for now and then my suggestion is were going to order some DuoDERM film patches to put over them to keep them from breaking open. Progress of Wound: The coccyx wound looks improved and healed using the Fibracol. We applied DuoDERM's to the 9 open areas on the left hip and right ischium. Which seems to be protecting the skin very well and they are getting changed about twice a week which is good. This area is healed also in the ischium patient will be discharged from the wound center Subjective Subjective Mrs. Perales 73-year-old female presenting wound care center today for follow-up e valuation of left foot full-thickness ulceration. Patient is nonambulatory and gets around in a wheelchair. She is on her oral antibiotic which she has noticed improvement to the left foot. She denies any malodor or drainage. She has left her dressing clean dry and intact. Denies any trauma. Denies constitutional symptoms. No other pedal complaints at this time. Objective Data Objective Data Vital Signs: Vital Signs Temp Pulse Resp BP O2 Del Method 98.6 F 61 18 115/64 Room Air 01/20/24 11:08 01/20/24 11:08 01/20/24 11:08 01/20/24 11:01/06/24 10:17 Oxygen Delivery Method Room Air Weight: 40.551 kg Body Mass Index (BMI) 16.9 Physical Exam Narrative Vascular: DP and PT pulses are faintly palpable to left lower extremity. CFT is delayed. Skin temperature gradient is warm to cool from proximal ankle to distal digit. No erythema or proximal streaking is appreciated. Neurological: Light touch absent. Protective sensation is absent. Dermatological: Full-thickness ulceration to the first metatarsal phalangeal joint dorsally measuring 2.0 x 2.0 x 0.1 cm. Wound base is granular nature. No drainage or sign of infection. . Excisional debridement down to and including subcutaneous tissue with a number 5 mm dermal curette to the left foot ulceration at the level of the first metatarsal phalangeal joint without incident. Predebridement measurement was 1.9 x 1.9 x 0.1 cm. Postdebridement measurement is 2.0 x 2.0 x 0.1 cm. EpiFix 2.0 x 2.0 cm was applied to the left full-thickness ulceration with 100% use. Third application. The graft site was free and clear of any infection. The wound/skin graft substitute was dressed with nonadherent bandage secured in place with Steri-Strips followed by bolster dressing as well as a double layer Tubigrip. Musculoskeletal: Muscle strength is 0 out of 5 bilateral. No pain on palpation to the full-thickness wound. No pain with calf pressure. Debridement Note Debridement Note Debridement Free Text: Excisional debridement down to and including subcutaneous tissue with a number 5 mm dermal curette to the left foot ulceration at the level of the first metatarsal phalangeal joint without incident. Predebridement measurement was 1.9 x 1.9 x 0.1 cm. Postdebridement measurement is 2.0 x 2.0 x 0.1 cm. EpiFix 2.0 x 2.0 cm was applied to the left full-thickness ulceration with 100% use. Third application. The graft site was free and clear of any infection. The wound/skin graft substitute was dressed with nonadherent bandage secured in place with Steri-Strips followed by bolster dressing as well as a double layer Tubigrip. Post-Debridement Measurements and Additional Note: Post-Debridement Measurements/Treatment WC - Nurse 1 - General Ulcer Assessment Start: 01/06/24 10:09 Freq: Status: Active Protocol: WC.LOWEXT Activity Type Activity Date Activity User E-sign Co-sign Detail Recorded Client Recorded Date Recorded By Document 01/06/24 10:17 CP [id number] 01/06/24 10:25 CP Document 01/20/24 11:08 RB [id number] 01/20/24 11:19 RB 01/06/24 01/20/24 10:17 11:08 - Today's Visit Information Type of service Follow-up Visit Follow-up Visit (Physician/[employer] (Physician/[employer] ) ) Arrival Mode Wheelchair Wheelchair Transfer Assistance Manual Manual Transfer Assist (Other) 2 Patient Identification Verified (Name & Yes ) Patient Requires Transmission-Based No No Precautions Height and Weight Body Mass Index (BMI) 16.9 16.9 BMI Classification Underweight Underweight Vital Signs Temperature (97.8 F-99.1 F) 98.4 F 98.6 F Temperature Source Temporal Temporal Pulse Rate (60-100) 129 H 61 Pulse Location Monitor Monitor Respiratory Rate (12-18) 16 18 Respiratory rate source Observation Observation Oxygen Delivery Method Room Air Blood Pressure (90/60-120/80) 120/91 H 115/64 Blood Pressure Mean (mm Hg) 100 81 Source Monitor Monitor Position Sitting Semi-Fowlers Blood Pressure Location Left Arm Left Arm History Since Last Visit- (Skip if this is Patient's initial visit) Have you changed medications since your No No last visit? Any new allergies or adverse reactions No No Had a fall/change in ADL's that may No No increase risk of falls Signs or symptoms of abuse and/or No No neglect since last visit Have you been in the hospital since your No No last visit? Has dressing in place as prescribed Yes Yes Has compression in place as prescribed N/A No Has offloadiing in place as prescribed Yes No Experienced any changes in pain level or No No management Pain Scale: 0-10 Numeric Is Patient Pain Free? No Yes - Nurse 1 - General Ulcer Measurement Start: 01/06/24 10:09 Freq: Status: Active Protocol: Activity Type Activity Date Activity User E-sign Co-sign Detail Recorded Client Recorded Date Recorded By Document 01/06/24 10:17 CP [id number] 01/06/24 10:25 CP Document 01/20/24 11:08 RB [id number] 01/20/24 11:19 RB 09/04/24 09/18/24 10:17 11:08 Wound Center Nurse 1 13 COCCYX -Combined with other wound No -Current Size (cm) - Length 1.5 0.8 -Current Size (cm) - Width 2 1.5 -Current Size (cm) - Depth 0.1 0.1 -Total Square Cm 3.0 1.20 -Tunneling No -Undermining/Tunneling No -Circular Undermining No -Exudate Amt Small Medium -Exudate Type Serosanguineous Serosanguineous -Wound Margin Distinct, Outline Attached -Granulation Amt Large (67-100%) Medium (34-66%) -Granulation Quality Hannah Hannah -Slough/Fibrin Yes -Necrosis Amt Small (1-33%) Large (67-100%) -Necrotic Tissue Type Adherent Slough Adherent Slough -Structure Exposed N/A -Texture (Leyla-wound Skin Appearance) Assessed Assessed, Scarring -Moisture (Leyla-wound Skin Appearance) Assessed Assessed -Color (Leyla-wound Skin Appearance) Assessed Assessed -Temperature (Leyla-wound Skin No Abnormality No Abnormality Appearance) (Pt Warm) (Pt Warm) -Tenderness on Palpation (Leyla-wound No No Skin Appearance) -Ulcer Cleansing Rinsed/ Wound Cleanser Irrigated with Saline -Foul Odor after Cleansing No No 12 L HIP -Combined with other wound No -Current Size (cm) - Length 0.1 0 -Current Size (cm) - Width 0.1 0 -Current Size (cm) - Depth 0.1 0 -Total Square Cm 0.01 0 -Photo Taken Yes -Epithelialization Large 67-100% -Texture (Leyla-wound Skin Appearance) Assessed -Moisture (Leyla-wound Skin Appearance) Assessed -Color (Leyla-wound Skin Appearance) Assessed -Temperature (Leyla-wound Skin No Abnormality Appearance) (Pt Warm) -Tenderness on Palpation (Leyla-wound Yes Skin Appearance) -Ulcer Cleansing Rinsed/ Irrigated with Saline -Foul Odor after Cleansing No -Wound Comment(s) possibly healed #11 R ISCHIUM -Combined with other wound No -Current Size (cm) - Length 0.3 0.5 -Current Size (cm) - Width 0.2 0.5 -Current Size (cm) - Depth 0.2 0.1 -Total Square Cm 0.06 0.25 -Tunneling No -Undermining/Tunneling No -Circular Undermining No -Exudate Amt Small Medium -Exudate Type Serous Serosanguineous -Wound Margin Distinct, Distinct, Outline Outline Attached Attached -Granulation Amt Large (67-100%) Medium (34-66%) -Granulation Quality Hannah Hannah -Slough/Fibrin Yes -Necrosis Amt Small (1-33%) Large (67-100%) -Necrotic Tissue Type Adherent Slough Adherent Slough -Structure Exposed N/A -Texture (Leyla-wound Skin Appearance) Assessed Assessed -Moisture (Leyla-wound Skin Appearance) Assessed Assessed -Color (Leyla-wound Skin Appearance) Assessed Assessed -Temperature (Leyla-wound Skin No Abnormality No Abnormality Appearance) (Pt Warm) (Pt Warm) -Tenderness on Palpation (Leyla-wound No No Skin Appearance) -Ulcer Cleansing Rinsed/ Wound Cleanser Irrigated with Saline -Foul Odor after Cleansing No No #10 left hallux -Combined with other wound No -Current Size (cm) - Length 1.6 2 -Current Size (cm) - Width 2 2.1 -Current Size (cm) - Depth 0.3 0.2 -Total Square Cm 3.2 4.2 -Tunneling No -Undermining/Tunneling No -Circular Undermining No -Exudate Amt Medium -Exudate Type Serosanguineous -Wound Margin Distinct, Outline Attached -Granulation Amt Medium (34-66%) -Granulation Quality Hannah,Red -Slough/Fibrin Yes -Necrosis Amt Medium (34-66%) -Necrotic Tissue Type Adherent Slough -Structure Exposed N/A -Texture (Leyla-wound Skin Appearance) Assessed -Moisture (Leyla-wound Skin Appearance) Assessed, Maceration -Color (Leyla-wound Skin Appearance) Assessed -Temperature (Leyla-wound Skin No Abnormality Appearance) (Pt Warm) -Tenderness on Palpation (Leyla-wound No Skin Appearance) -Ulcer Cleansing Wound Cleanser -Foul Odor after Cleansing No WC - Nurse 2 - General Ulcer CM Notes Start: 01/06/24 10:09 Freq: Status: Active Protocol: Activity Type Activity Date Activity User E-sign Co-sign Detail Recorded Client Recorded Date Recorded By Document 01/06/24 10:33 [id number] 01/06/24 10:38 Document 01/06/24 10:58 BMF [id number] 01/06/24 11:03 BMF Document 01/20/24 11:23 [facility] [id number] 01/20/24 11:27 [facility] Document 01/20/24 11:52 [id number] 01/20/24 11:55 01/06/24 01/06/24 01/20/24 10:33 10:58 11:23 Wound Center Nurse 2 13 COCCYX -Time 10:58 -Correct Patient Yes -Correct Side, Site, Position Yes -Correct Procedure Yes -Procedure Performed Yes -Type of Procedure Debridement -Clinical Debridement Subcutaneous -Tissue Removed Subcutaneous -Post Debridement (cm) - Length 2 0 -Post Debridement (cm) - Width 2 0 -Post Debridement (cm) - Depth 0.1 0 -Total Square (Post) (cm) 4 0 -Area of Debridement (cm) - Length 2 0 -Area of Debridement (cm) - Width 2 0 -Total Square (Area) (cm) 4 0 -Tunneling No -Undermining/Tunneling No -Circular Undermining No -Wound/Ulcer Outcome Not Healed Healed- Epithelialized -Ulcer Cleansing Rinsed/ Irrigated with Saline -Foul Odor after Cleansing No -Bioengineered Tissue No -Bleeding Controlled with Pressure -Treatment Response Procedure Tolerated Well -Offloading No -Debridement - Subq, 1st 20sq cm Yes 12 L HIP -Time 11:02 -Post Debridement (cm) - Length 0.1 0 -Post Debridement (cm) - Width 0.1 0 -Post Debridement (cm) - Depth 0.1 0 -Total Square (Post) (cm) 0.01 0 -Area of Debridement (cm) - Length 0.1 0 -Area of Debridement (cm) - Width 0.1 0 -Total Square (Area) (cm) 0.01 0 -Wound/Ulcer Outcome Healed- Epithelialized -Bleeding Controlled with NA #11 R ISCHIUM -Time 11:03 -Post Debridement (cm) - Length 0.1 0 -Post Debridement (cm) - Width 0.1 0 -Post Debridement (cm) - Depth 0.1 0 -Total Square (Post) (cm) 0.01 0 -Area of Debridement (cm) - Length 0.1 0 -Area of Debridement (cm) - Width 0.1 -Total Square (Area) (cm) 0.01 -Wound/Ulcer Outcome Healed- Epithelialized -Bleeding Controlled with NA #10 left hallux -Time 10:34 -Correct Patient Yes -Correct Side, Site, Position Yes -Correct Procedure Yes -Procedure Performed Yes -Type of Procedure Debridement -Clinical Debridement Subcutaneous -Tissue Removed Subcutaneous -Post Debridement (cm) - Length 2.0 -Post Debridement (cm) - Width 2.2 -Post Debridement (cm) - Depth 0.1 -Total Square (Post) (cm) 4.40 -Area of Debridement (cm) - Length 2.0 -Area of Debridement (cm) - Width 2.2 -Total Square (Area) (cm) 4.40 -Tunneling No -Undermining/Tunneling No -Circular Undermining No -Wound/Ulcer Outcome Not Healed -Ulcer Cleansing Rinsed/ Irrigated with Saline -Foul Odor after Cleansing No -Bioengineered Tissue Yes -Type of Bioengineered Tissue Epifix Mesh -Expiration Date 07/02/28 -Product Lot Number [id number] -Percent Used 100 -Lot number of Saline Used [id number] -Bleeding Controlled with Pressure -Treatment Response Procedure Tolerated Well -Offloading Yes -Type of Offloading Surgical Shoe -Debridement - Subq, 1st 20sq cm No -Apply Skin Sub - 1st 25 sq cm - Feet 1 -Epifix (per sq cm) -Epifix Mesh (per sq cm) 11 Pain Scale: 0-10 Numeric Is Patient Pain Free? Yes Yes Yes 01/20/24 11:52 Wound Center Nurse 2 13 COCCYX -Time -Correct Patient -Correct Side, Site, Position -Correct Procedure -Procedure Performed -Type of Procedure -Clinical Debridement -Tissue Removed -Post Debridement (cm) - Length -Post Debridement (cm) - Width -Post Debridement (cm) - Depth -Total Square (Post) (cm) -Area of Debridement (cm) - Length -Area of Debridement (cm) - Width -Total Square (Area) (cm) -Tunneling -Undermining/Tunneling -Circular Undermining -Wound/Ulcer Outcome -Ulcer Cleansing -Foul Odor after Cleansing -Bioengineered Tissue -Bleeding Controlled with -Treatment Response -Offloading -Debridement - Subq, 1st 20sq cm 12 L HIP -Time -Post Debridement (cm) - Length -Post Debridement (cm) - Width -Post Debridement (cm) - Depth -Total Square (Post) (cm) -Area of Debridement (cm) - Length -Area of Debridement (cm) - Width -Total Square (Area) (cm) -Wound/Ulcer Outcome -Bleeding Controlled with #11 R ISCHIUM -Time -Post Debridement (cm) - Length -Post Debridement (cm) - Width -Post Debridement (cm) - Depth -Total Square (Post) (cm) -Area of Debridement (cm) - Length -Area of Debridement (cm) - Width -Total Square (Area) (cm) -Wound/Ulcer Outcome -Bleeding Controlled with #10 left hallux -Time 11:53 -Correct Patient Yes -Correct Side, Site, Position Yes -Correct Procedure Yes -Procedure Performed Yes -Type of Procedure Debridement -Clinical Debridement Subcutaneous -Tissue Removed Subcutaneous -Post Debridement (cm) - Length 2 -Post Debridement (cm) - Width 2 -Post Debridement (cm) - Depth 0.1 -Total Square (Post) (cm) 4 -Area of Debridement (cm) - Length 2 -Area of Debridement (cm) - Width 2 -Total Square (Area) (cm) 4 -Tunneling No -Undermining/Tunneling No -Circular Undermining No -Wound/Ulcer Outcome Not Healed -Ulcer Cleansing Rinsed/ Irrigated with Saline -Foul Odor after Cleansing No -Bioengineered Tissue Yes -Type of Bioengineered Tissue Epifix -Expiration Date 08/05/28 -Product Lot Number [id number] -Percent Used 100 -Lot number of Saline Used [id number] -Bleeding Controlled with Pressure -Treatment Response Procedure Tolerated Well -Offloading Yes -Type of Offloading Surgical Shoe -Debridement - Subq, 1st 20sq cm No -Apply Skin Sub - 1st 25 sq cm - Feet 1 -Epifix (per sq cm) 4 -Epifix Mesh (per sq cm) Pain Scale: 0-10 Numeric Is Patient Pain Free? Yes WC - Nurse 3 - General Ulcer D/C NN Start: 01/06/24 10:09 Freq: Status: Active Protocol: Activity Type Activity Date Activity User E-sign Co-sign Detail Recorded Client Recorded Date Recorded By Document 01/06/24 10:48 CP [id number] 01/06/24 10:49 CP Document 01/06/24 11:20 DL [id number] 01/06/24 11:23 DL Document 01/20/24 11:40 DL [id number] 01/20/24 11:41 DL Document 01/20/24 12:06 [id number] 01/20/24 12:07 01/06/24 01/06/24 01/20/24 10:48 11:20 11:40 Wound Care Center Nurse 3 13 COCCYX -Ulcer Cleansing Rinsed/ Rinsed/ Irrigated with Irrigated with Saline Saline -Foul Odor after Cleansing No No -Primary Dressing Applied Fibracol Plus Fibracol Plus 4x4,Mepilex 4x4,Mepilex Border Border -Fibracol Plus 4x4 1 1 -Mepilex Border 1 1 12 L HIP -Ulcer Cleansing Rinsed/ Irrigated with Saline -Primary Dressing Applied Mepilex Border Mepilex Border -Mepilex Border 1 1 -Wound Comment(s) will resume duoderm at home #11 R ISCHIUM -Ulcer Cleansing Rinsed/ Irrigated with Saline -Primary Dressing Applied Mepilex Border Mepilex Border -Mepilex Border 1 1 -Wound Comment(s) will resume Duoderm at home #10 left hallux -Ulcer Cleansing -Foul Odor after Cleansing -Primary Dressing Covered/Secured with Dry Gauze & Roll Gauze, Secured with Tape Left -Lotion applied to leg before compression wrap -Tubular Bandage -Size of Tubigrip Used -Size E ($) Treatment Response Procedure Tolerated Well Pain Scale: 0-10 Numeric Is Patient Pain Free? No Yes Yes WC - Visit Discharge Discharge Condition Stable Ambulatory Status Wheelchair Transportation Facility Type Home Health Orders Sent Yes 01/20/24 12:06 Wound Care Center Nurse 3 13 COCCYX -Ulcer Cleansing -Foul Odor after Cleansing -Primary Dressing Applied -Fibracol Plus 4x4 -Mepilex Border 12 L HIP -Ulcer Cleansing -Primary Dressing Applied -Mepilex Border -Wound Comment(s) #11 R ISCHIUM -Ulcer Cleansing -Primary Dressing Applied -Mepilex Border -Wound Comment(s) #10 left hallux -Ulcer Cleansing Not Cleansed -Foul Odor after Cleansing No -Primary Dressing Covered/Secured with Dry Gauze & Roll Gauze, Secured with Tape Left -Lotion applied to leg before No compression wrap -Tubular Bandage Single Layer -Size of Tubigrip Used Size E -Size E ($) 1 Treatment Response Pain Scale: 0-10 Numeric Is Patient Pain Free? Yes WC - Visit Discharge Discharge Condition Stable Ambulatory Status Wheelchair Transportation Private Auto Facility Type Orders Sent Assessment/Plan Assessment/Plan (1) Non-pressure chronic ulcer of other part of left foot with fat layer exposed: CODE(S): L97.522 - Non-pressure chronic ulcer of other part of left foot with fat layer exposed PLAN: Patient was examined and evaluated. All findings were discussed with the patient. All questions were answered to the patient's satisfaction. Excisional debridement down to and including subcutaneous tissue with a number 5 mm dermal curette to the left foot ulceration at the level of the first metatarsal phalangeal joint without incident. Predebridement measurement was 1.9 x 1.9 x 0.1 cm. Postdebridement measurement is 2.0 x 2.0 x 0.1 cm. EpiFix 2.0 x 2.0 cm was applied to the left full-thickness ulceration with 100% use. Third application. The graft site was free and clear of any infection. The wound/skin graft substitute was dressed with nonadherent bandage secured in place with Steri-Strips followed by bolster dressing as well as a double layer Tubigrip. Educated the patient to elevate her bilateral lower extremity is much as possible and not to have her feet in a dependent position when she was understanding of. Follow-up at the wound care center with Dr. Mota in 1 week.
--- NOTE | 2024-01-21 08:40 | WC ---
PHOTO 01/20/24
[2024-01-27 11:07] VITALS: BP 109/63; PULSE 67; RESP 18; TEMP 35.8; BMI 16.9
--- NOTE | 2024-01-27 12:06 | PCM.WC.PN ---
History of Present Illness Date of Service: 01/27/24 Chief Complaint: Coccyx wound and right ischium left hip wounds History of Wound: Ms Perales is a 73-year-old female seen at the wound care center today for follow-up evaluation of a coccyx wounds it has been going on for over 1 year they have been using all sorts of different products but is only been seen by the home health care nurse and getting dressing changes twice a week. At this point it superficial and open stage II so we will try using some Fibracol on that area. 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 Patient states that the wounds on her right ischium is from scooting and friction and has been constant going on and off for 20 years it is closed at this time and flushing color she says it was she could get her finger inside the wound at 1 time but is healed now the left hip trochanter is scabbed but it is healed it is not open and we will pad and protect both these areas for now and then my suggestion is were going to order some DuoDERM film patches to put over them to keep them from breaking open. Progress of Wound: The coccyx wound looks improved and healed using the Fibracol. We applied DuoDERM's to the 9 open areas on the left hip and right ischium. Which seems to be protecting the skin very well and they are getting changed about twice a week which is good. This area is healed also in the ischium patient will be discharged from the wound center Subjective Subjective Ms Perales is a 73-year-old female presenting to wound care center today for follow-up evaluation of left foot big toe joint full-thickness ulceration. The patient has left her graft and dressing clean dry and intact. She has remember to apply little pressure with the surgical shoe to decrease the strap pressure across the ulceration. She has been elevating her legs out of her wheelchair as instructed. She denies trauma. Denies constitutional symptoms. No other pedal complaints at this time. Objective Data Objective Data Vital Signs: Vital Signs Temp Pulse Resp BP O2 Del Method 96.5 F L 67 18 109/63 Room Air 01/27/24 11:07 01/27/24 11:07 01/27/24 11:07 01/27/24 11:07 01/27/24 11:07 Oxygen Delivery Method Room Air Weight: 40.551 kg Body Mass Index (BMI) 16.9 Physical Exam Narrative Vascular: DP and PT pulses are faintly palpable to left lower extremity. CFT is delayed. Skin temperature gradient is warm to cool from proximal ankle to distal digit. No erythema or proximal streaking is appreciated. Neurological: Light touch absent. Protective sensation is absent. Dermatological: Full-thickness ulceration to the first metatarsal phalangeal joint dorsally measuring 1.8 x 1.6 x 0.1 cm wound base is granular nature. No drainage or sign of infection. . Excisional debridement down to and including subcutaneous tissue with a number 5 mm dermal curette to the left foot ulceration at the level of the first metatarsal phalangeal joint without incident. Predebridement measurement was 1.6 x 1.4 x 0.1 cm. Postdebridement measurement is 1.8 x 1.6 x 0.1 cm. EpiFix 2.0 x 2.0 cm was applied to the left full-thickness ulceration with 100% use. Fourth application. The graft site was free and clear of any infection. The wound/skin graft substitute was dressed with nonadherent bandage secured in place with Steri-Strips followed by bolster dressing as well as a double layer Tubigrip. Musculoskeletal: Muscle strength is 0 out of 5 bilateral. No pain on palpation to the full-thickness wound. No pain with calf pressure. Debridement Note Debridement Note Debridement Free Text: Excisional debridement down to and including subcutaneous tissue with a number 5 mm dermal curette to the left foot ulceration at the level of the first metatarsal phalangeal joint without incident. Predebridement measurement was 1.6 x 1.4 x 0.1 cm. Postdebridement measurement is 1.8 x 1.6 x 0.1 cm. EpiFix 2.0 x 2.0 cm was applied to the left full-thickness ulceration with 100% use. Fourth application. The graft site was free and clear of any infection. The wound/skin graft substitute was dressed with nonadherent bandage secured in place with Steri-Strips followed by bolster dressing as well as a double layer Tubigrip. Post-Debridement Measurements and Additional Note: Post-Debridement Measurements/Treatment WC - Nurse 1 - General Ulcer Assessment Start: 01/06/24 10:09 Freq: Status: Active Protocol: MARY.LOWEXT Activity Type Activity Date Activity User E-sign Co-sign Detail Recorded Client Recorded Date Recorded By Document 01/06/24 10:17 CP [id number] 01/06/24 10:25 CP Document 01/20/24 11:08 RB [id number] 01/20/24 11:19 RB Document 01/27/24 11:07 KW [id number] 01/27/24 11:16 KW 01/06/24 01/20/24 01/27/24 10:17 11:08 11:07 - Today's Visit Information Type of service Follow-up Visit Follow-up Visit Follow-up Visit (Physician/HUMAN RESOURCES DESIGNATE (Physician/HUMAN RESOURCES DESIGNATE (Physician/HUMAN RESOURCES DESIGNATE ) ) ) Arrival Mode Wheelchair Wheelchair Wheelchair Transfer Assistance Manual Manual Transfer Assist (Other) 2 Patient Identification Verified (Name & Yes Yes ) Patient Requires Transmission-Based No No Precautions Height and Weight Body Mass Index (BMI) 16.9 16.9 16.9 BMI Classification Underweight Underweight Underweight Vital Signs Temperature (97.8 F-99.1 F) 98.4 F 98.6 F 96.5 F L Temperature Source Temporal Temporal Temporal Pulse Rate (60-100) 129 H 61 67 Pulse Location Monitor Monitor Monitor Respiratory Rate (12-18) 16 18 18 Respiratory rate source Observation Observation Observation Oxygen Delivery Method Room Air Room Air Blood Pressure (90/60-120/80) 120/91 H 115/64 109/63 Blood Pressure Mean (mm Hg) 100 81 78 Source Monitor Monitor Monitor Position Sitting Semi-Fowlers Semi-Fowlers Blood Pressure Location Left Arm Left Arm Left Arm History Since Last Visit- (Skip if this is Patient's initial visit) Have you changed medications since your No No No last visit? Any new allergies or adverse reactions No No No Had a fall/change in ADL's that may No No No increase risk of falls Signs or symptoms of abuse and/or No No No neglect since last visit Have you been in the hospital since your No No No last visit? Has dressing in place as prescribed Yes Yes Yes Has compression in place as prescribed N/A No N/A Has offloadiing in place as prescribed Yes No N/A Experienced any changes in pain level or No No No management Left Footwear Regular Shoe Right Footwear Regular Shoe Pain Scale: 0-10 Numeric Is Patient Pain Free? No Yes Yes WC - Nurse 1 - General Ulcer Measurement Start: 01/06/24 10:09 Freq: Status: Active Protocol: Activity Type Activity Date Activity User E-sign Co-sign Detail Recorded Client Recorded Date Recorded By Document 01/06/24 10:17 CP [id number] 01/06/24 10:25 CP Document 01/20/24 11:08 RB [id number] 01/20/24 11:19 RB Document 01/27/24 11:07 KW [id number] 01/27/24 11:16 KW 01/06/24 01/20/24 01/27/24 10:17 11:08 11:07 Wound Center Nurse 1 13 COCCYX -Combined with other wound No -Current Size (cm) - Length 1.5 0.8 -Current Size (cm) - Width 2 1.5 -Current Size (cm) - Depth 0.1 0.1 -Total Square Cm 3.0 1.20 -Tunneling No -Undermining/Tunneling No -Circular Undermining No -Exudate Amt Small Medium -Exudate Type Serosanguineous Serosanguineous -Wound Margin Distinct, Outline Attached -Granulation Amt Large (67-100%) Medium (34-66%) -Granulation Quality [place] -Slough/Fibrin Yes -Necrosis Amt Small (1-33%) Large (67-100%) -Necrotic Tissue Type Adherent Slough Adherent Slough -Structure Exposed N/A -Texture (Leyla-wound Skin Appearance) Assessed Assessed, Scarring -Moisture (Leyla-wound Skin Appearance) Assessed Assessed -Color (Leyla-wound Skin Appearance) Assessed Assessed -Temperature (Leyla-wound Skin No Abnormality No Abnormality Appearance) (Pt Warm) (Pt Warm) -Tenderness on Palpation (Leyla-wound No No Skin Appearance) -Ulcer Cleansing Rinsed/ Wound Cleanser Irrigated with Saline -Foul Odor after Cleansing No No 12 L HIP -Combined with other wound No -Current Size (cm) - Length 0.1 0 -Current Size (cm) - Width 0.1 0 -Current Size (cm) - Depth 0.1 0 -Total Square Cm 0.01 0 -Photo Taken Yes -Epithelialization Large 67-100% -Texture (Leyla-wound Skin Appearance) Assessed -Moisture (Leyla-wound Skin Appearance) Assessed -Color (Leyla-wound Skin Appearance) Assessed -Temperature (Leyla-wound Skin No Abnormality Appearance) (Pt Warm) -Tenderness on Palpation (Leyla-wound Yes Skin Appearance) -Ulcer Cleansing Rinsed/ Irrigated with Saline -Foul Odor after Cleansing No -Wound Comment(s) possibly healed #11 R ISCHIUM -Combined with other wound No -Current Size (cm) - Length 0.3 0.5 -Current Size (cm) - Width 0.2 0.5 -Current Size (cm) - Depth 0.2 0.1 -Total Square Cm 0.06 0.25 -Tunneling No -Undermining/Tunneling No -Circular Undermining No -Exudate Amt Small Medium -Exudate Type Serous Serosanguineous -Wound Margin Distinct, Distinct, Outline Outline Attached Attached -Granulation Amt Large (67-100%) Medium (34-66%) -Granulation Quality [place] -Slough/Fibrin Yes -Necrosis Amt Small (1-33%) Large (67-100%) -Necrotic Tissue Type Adherent Slough Adherent Slough -Structure Exposed N/A -Texture (Leyla-wound Skin Appearance) Assessed Assessed -Moisture (Leyla-wound Skin Appearance) Assessed Assessed -Color (Leyla-wound Skin Appearance) Assessed Assessed -Temperature (Leyla-wound Skin No Abnormality No Abnormality Appearance) (Pt Warm) (Pt Warm) -Tenderness on Palpation (Leyla-wound No No Skin Appearance) -Ulcer Cleansing Rinsed/ Wound Cleanser Irrigated with Saline -Foul Odor after Cleansing No No #10 left hallux -Combined with other wound No -Current Size (cm) - Length 1.6 2 1.8 -Current Size (cm) - Width 2 2.1 2 -Current Size (cm) - Depth 0.3 0.2 0.1 -Total Square Cm 3.2 4.2 3.6 -Tunneling No -Undermining/Tunneling No -Circular Undermining No -Exudate Amt Medium Small -Exudate Type Serosanguineous Serosanguineous -Wound Margin Distinct, Distinct, Outline Outline Attached Attached -Granulation Amt Medium (34-66%) Large (67-100%) -Granulation Quality [place],Red Red -Slough/Fibrin Yes -Necrosis Amt Medium (34-66%) Small (1-33%) -Necrotic Tissue Type Adherent Slough Adherent Slough -Structure Exposed N/A -Texture (Leyla-wound Skin Appearance) Assessed Assessed -Moisture (Leyla-wound Skin Appearance) Assessed, Assessed Maceration -Color (Leyla-wound Skin Appearance) Assessed Assessed -Temperature (Leyla-wound Skin No Abnormality No Abnormality Appearance) (Pt Warm) (Pt Warm) -Tenderness on Palpation (Leyla-wound No No Skin Appearance) -Ulcer Cleansing Wound Cleanser Soap and Water -Foul Odor after Cleansing No No WC - Nurse 2 - General Ulcer CM Notes Start: 01/06/24 10:09 Freq: Status: Active Protocol: Activity Type Activity Date Activity User E-sign Co-sign Detail Recorded Client Recorded Date Recorded By Document 01/06/24 10:33 CP [id number] 01/06/24 10:38 CP Document 01/06/24 10:58 BM [id number] 01/06/24 11:03 BM Document 01/20/24 11:23 BMF [id number] 01/20/24 11:27 BMF Document 01/20/24 11:52 JF [id number] 01/20/24 11:55 Document 01/27/24 11:23 [id number] 01/27/24 11:29 01/06/24 01/06/24 01/20/24 10:33 10:58 11:23 Wound Center Nurse 2 13 COCCYX -Time 10:58 -Correct Patient Yes -Correct Side, Site, Position Yes -Correct Procedure Yes -Procedure Performed Yes -Type of Procedure Debridement -Clinical Debridement Subcutaneous -Tissue Removed Subcutaneous -Post Debridement (cm) - Length 2 0 -Post Debridement (cm) - Width 2 0 -Post Debridement (cm) - Depth 0.1 0 -Total Square (Post) (cm) 4 0 -Area of Debridement (cm) - Length 2 0 -Area of Debridement (cm) - Width 2 0 -Total Square (Area) (cm) 4 0 -Tunneling No -Undermining/Tunneling No -Circular Undermining No -Wound/Ulcer Outcome Not Healed Healed- Epithelialized -Ulcer Cleansing Rinsed/ Irrigated with Saline -Foul Odor after Cleansing No -Bioengineered Tissue No -Bleeding Controlled with Pressure -Treatment Response Procedure Tolerated Well -Offloading No -Debridement - Subq, 1st 20sq cm Yes 12 L HIP -Time 11:02 -Post Debridement (cm) - Length 0.1 0 -Post Debridement (cm) - Width 0.1 0 -Post Debridement (cm) - Depth 0.1 0 -Total Square (Post) (cm) 0.01 0 -Area of Debridement (cm) - Length 0.1 0 -Area of Debridement (cm) - Width 0.1 0 -Total Square (Area) (cm) 0.01 0 -Wound/Ulcer Outcome Healed- Epithelialized -Bleeding Controlled with NA #11 R ISCHIUM -Time 11:03 -Post Debridement (cm) - Length 0.1 0 -Post Debridement (cm) - Width 0.1 0 -Post Debridement (cm) - Depth 0.1 0 -Total Square (Post) (cm) 0.01 0 -Area of Debridement (cm) - Length 0.1 0 -Area of Debridement (cm) - Width 0.1 -Total Square (Area) (cm) 0.01 -Wound/Ulcer Outcome Healed- Epithelialized -Bleeding Controlled with NA #10 left hallux -Time 10:34 -Correct Patient Yes -Correct Side, Site, Position Yes -Correct Procedure Yes -Procedure Performed Yes -Type of Procedure Debridement -Clinical Debridement Subcutaneous -Tissue Removed Subcutaneous -Post Debridement (cm) - Length 2.0 -Post Debridement (cm) - Width 2.2 -Post Debridement (cm) - Depth 0.1 -Total Square (Post) (cm) 4.40 -Area of Debridement (cm) - Length 2.0 -Area of Debridement (cm) - Width 2.2 -Total Square (Area) (cm) 4.40 -Tunneling No -Undermining/Tunneling No -Circular Undermining No -Wound/Ulcer Outcome Not Healed -Ulcer Cleansing Rinsed/ Irrigated with Saline -Foul Odor after Cleansing No -Bioengineered Tissue Yes -Type of Bioengineered Tissue Epifix Mesh -Expiration Date 07/02/28 -Product Lot Number [id number] -Percent Used 100 -Lot number of Saline Used [id number] -Bleeding Controlled with Pressure -Treatment Response Procedure Tolerated Well -Offloading Yes -Type of Offloading Surgical Shoe -Debridement - Subq, 1st 20sq cm No -Apply Skin Sub - 1st 25 sq cm - Feet 1 -Epifix (per sq cm) -Epifix Mesh (per sq cm) 11 Pain Scale: 0-10 Numeric Is Patient Pain Free? Yes Yes Yes 01/20/24 01/27/24 11:52 11:23 Wound Center Nurse 2 13 COCCYX -Time -Correct Patient -Correct Side, Site, Position -Correct Procedure -Procedure Performed -Type of Procedure -Clinical Debridement -Tissue Removed -Post Debridement (cm) - Length -Post Debridement (cm) - Width -Post Debridement (cm) - Depth -Total Square (Post) (cm) -Area of Debridement (cm) - Length -Area of Debridement (cm) - Width -Total Square (Area) (cm) -Tunneling -Undermining/Tunneling -Circular Undermining -Wound/Ulcer Outcome -Ulcer Cleansing -Foul Odor after Cleansing -Bioengineered Tissue -Bleeding Controlled with -Treatment Response -Offloading -Debridement - Subq, 1st 20sq cm 12 L HIP -Time -Post Debridement (cm) - Length -Post Debridement (cm) - Width -Post Debridement (cm) - Depth -Total Square (Post) (cm) -Area of Debridement (cm) - Length -Area of Debridement (cm) - Width -Total Square (Area) (cm) -Wound/Ulcer Outcome -Bleeding Controlled with #11 R ISCHIUM -Time -Post Debridement (cm) - Length -Post Debridement (cm) - Width -Post Debridement (cm) - Depth -Total Square (Post) (cm) -Area of Debridement (cm) - Length -Area of Debridement (cm) - Width -Total Square (Area) (cm) -Wound/Ulcer Outcome -Bleeding Controlled with #10 left hallux -Time 11:53 11:23 -Correct Patient Yes Yes -Correct Side, Site, Position Yes Yes -Correct Procedure Yes Yes -Procedure Performed Yes Yes -Type of Procedure Debridement Debridement -Clinical Debridement Subcutaneous Subcutaneous -Tissue Removed Subcutaneous Subcutaneous -Post Debridement (cm) - Length 2 1.8 -Post Debridement (cm) - Width 2 1.6 -Post Debridement (cm) - Depth 0.1 0.1 -Total Square (Post) (cm) 4 2.88 -Area of Debridement (cm) - Length 2 1.8 -Area of Debridement (cm) - Width 2 1.6 -Total Square (Area) (cm) 4 2.88 -Tunneling No No -Undermining/Tunneling No No -Circular Undermining No No -Wound/Ulcer Outcome Not Healed Not Healed -Ulcer Cleansing Rinsed/ Rinsed/ Irrigated with Irrigated with Saline Saline -Foul Odor after Cleansing No No -Bioengineered Tissue Yes Yes -Type of Bioengineered Tissue Epifix Epifix -Expiration Date 08/05/28 08/02/28 -Product Lot Number [id number] -Percent Used 100 100 -Lot number of Saline Used [id number] -Bleeding Controlled with Pressure Pressure -Treatment Response Procedure Procedure Tolerated Well Tolerated Well -Offloading Yes Yes -Type of Offloading Surgical Shoe Surgical Shoe -Debridement - Subq, 1st 20sq cm No No -Apply Skin Sub - 1st 25 sq cm - Feet 1 1 -Epifix (per sq cm) 4 4 -Epifix Mesh (per sq cm) Pain Scale: 0-10 Numeric Is Patient Pain Free? Yes Yes - Nurse 3 - General Ulcer D/C NN Start: 01/06/24 10:09 Freq: Status: Active Protocol: Activity Type Activity Date Activity User E-sign Co-sign Detail Recorded Client Recorded Date Recorded By Document 01/06/24 10:48 CP [id number] 01/06/24 10:49 CP Document 01/06/24 11:20 DL [id number] 01/06/24 11:23 DL Document 01/20/24 11:40 DL [id number] 01/20/24 11:41 DL Document 01/20/24 12:06 GM [id number] 01/20/24 12:07 GM Document 01/27/24 11:35 KW [id number] 01/27/24 11:36 KW 01/06/24 01/06/24 01/20/24 10:48 11:20 11:40 Wound Care Center Nurse 3 13 COCCYX -Ulcer Cleansing Rinsed/ Rinsed/ Irrigated with Irrigated with Saline Saline -Foul Odor after Cleansing No No -Primary Dressing Applied Fibracol Plus Fibracol Plus 4x4,Mepilex 4x4,Mepilex Border Border -Fibracol Plus 4x4 1 1 -Mepilex Border 1 1 12 L HIP -Ulcer Cleansing Rinsed/ Irrigated with Saline -Primary Dressing Applied Mepilex Border Mepilex Border -Mepilex Border 1 1 -Wound Comment(s) will resume duoderm at home #11 R ISCHIUM -Ulcer Cleansing Rinsed/ Irrigated with Saline -Primary Dressing Applied Mepilex Border Mepilex Border -Mepilex Border 1 1 -Wound Comment(s) will resume Duoderm at home #10 left hallux -Ulcer Cleansing -Foul Odor after Cleansing -Primary Dressing Covered/Secured with Dry Gauze & Roll Gauze, Secured with Tape Left -Lotion applied to leg before compression wrap -Tubular Bandage -Size of Tubigrip Used -Size D ($) -Size E ($) Treatment Response Procedure Tolerated Well Pain Scale: 0-10 Numeric Is Patient Pain Free? No Yes Yes WC - Visit Discharge Discharge Condition Stable Ambulatory Status Wheelchair Transportation Facility Type Home Health Orders Sent Yes 01/20/24 01/27/24 12:06 11:35 Wound Care Center Nurse 3 13 COCCYX -Ulcer Cleansing -Foul Odor after Cleansing -Primary Dressing Applied -Fibracol Plus 4x4 -Mepilex Border 12 L HIP -Ulcer Cleansing -Primary Dressing Applied -Mepilex Border -Wound Comment(s) #11 R ISCHIUM -Ulcer Cleansing -Primary Dressing Applied -Mepilex Border -Wound Comment(s) #10 left hallux -Ulcer Cleansing Not Cleansed -Foul Odor after Cleansing No -Primary Dressing Covered/Secured with Dry Gauze & Dry Gauze & Roll Gauze, Roll Gauze, Secured with Secured with Tape Tape Left -Lotion applied to leg before No compression wrap -Tubular Bandage Single Layer Single Layer -Size of Tubigrip Used Size E Size D -Size D ($) 1 -Size E ($) 1 Treatment Response Pain Scale: 0-10 Numeric Is Patient Pain Free? Yes Yes WC - Visit Discharge Discharge Condition Stable Ambulatory Status Wheelchair Transportation [facility] Facility Type Orders Sent Assessment/Plan Assessment/Plan (1) Non-pressure chronic ulcer of other part of left foot with fat layer exposed: CODE(S): L97.522 - Non-pressure chronic ulcer of other part of left foot with fat layer exposed PLAN: Patient was examined and evaluated. All findings were discussed with the patient. All questions were answered to the patient's satisfaction. Excisional debridement down to and including subcutaneous tissue with a number 5 mm dermal curette to the left foot ulceration at the level of the first metatarsal phalangeal joint without incident. Predebridement measurement was 1.6 x 1.4 x 0.1 cm. Postdebridement measurement is 1.8 x 1.6 x 0.1 cm. EpiFix 2.0 x 2.0 cm was applied to the left full-thickness ulceration with 100% use. Fourth application. The graft site was free and clear of any infection. The wound/skin graft substitute was dressed with nonadherent bandage secured in place with Steri-Strips followed by bolster dressing as well as a double layer Tubigrip. Educated the patient to elevate her bilateral lower extremity is much as possible and not to have her feet in a dependent position when she was understanding of. Follow-up at the wound care center with Dr. Mota in 1 week.
== END 2024-02-01 23:59 | disposition home or self-care (01) ==
LOC: WC 11:00
PROVIDERS: PCP Family Medicine; Referring Provider Family Medicine; Visit Provider Podiatrist Foot & Ankle Surgery
DX: L89.152 Pressure ulcer of sacral region, stage 2 (principal); L97.522 Non-pressure chronic ulcer of other part of left foot with fat layer exposed; L89.311 Pressure ulcer of right buttock, stage 1; L89.221 Pressure ulcer of left hip, stage 1
CPT/HCPCS: 11042; 15275; 99212; Q4186; G0463

== ENCOUNTER 2024-03-03 09:30 | Outpatient (RCR) | payer MEDICARE, OTHER, SELFPAY ==
[2024-02-02 00:45] VITALS: BP 188/66; PULSE 68; RESP 16; TEMP 35.9; BMI 16.9
[2024-02-03 11:35] VITALS: BP 127/69; PULSE 68; RESP 16; TEMP 35.7; BMI 16.9
--- NOTE | 2024-02-03 21:23 | PN.PCM_ITS ---
History of Present Illness Date of Service: 02/03/24 Chief Complaint: Coccyx wound and right ischium left hip wounds History of Wound: Ms Perales is a 73-year-old female seen at the wound care center today for follow-up evaluation of a coccyx wounds it has been going on for over 1 year they have been using all sorts of different products but is only been seen by the home health care nurse and getting dressing changes twice a week. At this point it superficial and open stage II so we will try using some Fibracol on that area. 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 Patient states that the wounds on her right ischium is from scooting and friction and has been constant going on and off for 20 years it is closed at this time and flushing color she says it was she could get her finger inside the wound at 1 time but is healed now the left hip troc hanter is scabbed but it is healed it is not open and we will pad and protect both these areas for now and then my suggestion is were going to order some DuoDERM film patches to put over them to keep them from breaking open. Subjective Subjective Ms Perales is a 73-year-old female presenting to wound care center today for follow-up evaluation of left foot big toe joint full-thickness ulceration. The patient has left her graft and dressing clean dry and intact. She has remember to apply little pressure with the surgical shoe to decrease the strap pressure across the ulceration. She has been elevating her legs out of her wheelchair as instructed. She denies trauma. Denies constitutional symptoms. No other pedal complaints at this time. Objective Data Objective Data Vital Signs: Vital Signs Temp Pulse Resp BP O2 Del Method 96.3 F L 68 16 127/69 H Room Air 02/03/24 11:35 02/03/24 11:35 02/03/24 11:35 02/03/24 11:35 02/03/24 11:35 Oxygen Delivery Method Room Air Weight: 40.551 kg Body Mass Index (BMI) 16.9 Physical Exam Narrative Vascular: DP and PT pulses are faintly palpable to left lower extremity. CFT is delayed. Skin temperature gradient is warm to cool from proximal ankle to distal digit. No erythema or proximal streaking is appreciated. Neurological: Light touch absent. Protective sensation is absent. Dermatological: Full-thickness ulceration to the first metatarsal phalangeal joint dorsally measuring 1.8 x 1.8 x 0.2 cm wound base is granular nature. No drainage or sign of infection. . Excisional debridement down to and including subcutaneous tissue with a number 5 mm dermal curette to the left foot ulceration at the level of the first metatarsal phalangeal joint without incident. Predebridement measurement was 1.5 x 1.4 x 0.1 cm. Postdebridement measurement is 1.8 x 1.8 x 0.1 cm. EpiFix 18 mm disc was applied to the left full-thickness ulceration with 100% us e. Fifth application. The graft site was free and clear of any infection. The wound/skin graft substitute was dressed with nonadherent bandage secured in place with Steri-Strips followed by bolster dressing as well as a double layer Tubigrip. Musculoskeletal: Muscle strength is 0 out of 5 bilateral. No pain on palpation to the full-thickness wound. No pain with calf pressure. Debridement Note Debridement Note Debridement Free Text: Excisional debridement down to and including subcutaneous tissue with a number 5 mm dermal curette to the left foot ulceration at the level of the first metatarsal phalangeal joint without incident. Predebridement measurement was 1.5 x 1.4 x 0.1 cm. Postdebridement measurement is 1.8 x 1.8 x 0.1 cm. EpiFix 18 mm disc was applied to the left full-thickness ulceration with 100% use. Fifth application. The graft site was free and clear of any infection. The wound/skin graft substitute was dressed with nonadherent bandage secured in place with Steri-Strips followed by bolster dressing as well as a double layer Tubigrip. 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 ) Arrival Mode Wheelchair Transfer Assistance None Patient Identification Verified (Name & Yes ) Height and Weight Body Mass Index (BMI) 16.9 BMI Classification Underweight Vital Signs Temperature (97.8 F-99.1 F) 96.3 F L Temperature Source Temporal Pulse Rate (60-100) 68 Pulse Location Monitor Respiratory Rate (12-18) 16 Respiratory rate source Observation Oxygen Delivery Method Room Air Blood Pressure (90/60-120/80) 127/69 H Blood Pressure Mean (mm Hg) 88 Source Monitor Position Sitting Blood Pressure Location Right Arm History Since Last Visit- (Skip if this is Patient's initial visit) Have you changed medications since your No last visit? Any new allergies or adverse reactions No Had a fall/change in ADL's that may No increase risk of falls Signs or symptoms of abuse and/or No neglect since last visit Have you been in the hospital since your No last visit? Has dressing in place as prescribed Yes Has compression in place as prescribed N/A Has offloadiing in place as prescribed Yes Experienced any changes in pain level or No management Pain Scale: 0-10 Numeric Is Patient Pain Free? Yes WC - Nurse 1 - General Ulcer Measurement Start: 02/03/24 11:35 Freq: Status: Active Protocol: Activity Type Activity Date Activity User E-sign Co-sign Detail Recorded Client Recorded Date Recorded By Document 02/03/24 11:42 [id number] 02/03/24 11:43 02/03/24 11:42 Wound Center Nurse 1 #10 left hallux -Current Size (cm) - Length 1.0 -Current Size (cm) - Width 1.1 -Current Size (cm) - Depth 0.1 -Total Square Cm 1.10 -Date of Last Picture (Recall this 02/03/24 field) -Photo Taken Yes -Epithelialization Small 1-33% -Tunneling No -Undermining/Tunneling No -Circular Undermining No -Exudate Amt None Present -Wound Margin Distinct, Outline Attached -Granulation Amt Small (1-33%) -Texture (Leyla-wound Skin Appearance) Assessed -Moisture (Leyla-wound Skin Appearance) Assessed -Color (Leyla-wound Skin Appearance) Assessed -Temperature (Leyla-wound Skin No Abnormality Appearance) (Pt Warm) -Tenderness on Palpation (Leyla-wound No Skin Appearance) -Ulcer Cleansing Soap and Water -Foul Odor after Cleansing No WC - Nurse 2 - General Ulcer CM Notes Start: 02/03/24 11:35 Freq: Status: Active Protocol: Activity Type Activity Date Activity User E-sign Co-sign Detail Recorded Client Recorded Date Recorded By Document 02/03/24 11:54 [email or web address] [id number] 02/03/24 11:58 POOJA 02/03/24 11:54 Wound Center Nurse 2 -Time 11:56 -Correct Patient Yes -Correct Side, Site, Position Yes -Correct Procedure Yes -Procedure Performed Yes -Type of Procedure Debridement -Clinical Debridement Subcutaneous -Tissue Removed Subcutaneous -Post Debridement (cm) - Length 1.8 -Post Debridement (cm) - Width 1.8 -Post Debridement (cm) - Depth 0.2 -Total Square (Post) (cm) 3.24 -Area of Debridement (cm) - Length 1.8 -Area of Debridement (cm) - Width 1.8 -Total Square (Area) (cm) 3.24 -Tunneling No -Undermining/Tunneling No -Circular Undermining No -Wound/Ulcer Outcome Not Healed -Ulcer Cleansing Rinsed/ Irrigated with Saline -Foul Odor after Cleansing No -Bioengineered Tissue Yes -Type of Bioengineered Tissue Epifix 18mm Disc -Expiration Date 08/02/28 -Product Lot Number [id number] -Percent Used 100 -Lot number of Saline Used [id number] -Bleeding Controlled with Pressure -Treatment Response Procedure Tolerated Well -Offloading Yes -Type of Offloading Surgical Shoe -Debridement - Subq, 1st 20sq cm No -Apply Skin Sub - 1st 25 sq cm - Feet 1 -Epifix 18mm Disc 3 Pain Scale: 0-10 Numeric Is Patient Pain Free? Yes Assessment/Plan Assessment/Plan (1) Non-pressure chronic ulcer of other part of left foot with fat layer exposed: CODE(S): L97.522 - Non-pressure chronic ulcer of other part of left foot with fat layer exposed PLAN: Patient was examined and evaluated. All findings were discussed with the patient. All questions were answered to the patient's satisfaction. Excisional debridement down to and including subcutaneous tissue with a number 5 mm dermal curette to the left foot ulceration at the level of the first metatarsal phalangeal joint without incident. Predebridement measurement was 1.5 x 1.4 x 0.1 cm. Postdebridement measurement is 1.8 x 1.8 x 0.1 cm. EpiFix 18 mm disc was applied to the left full-thickness ulceration with 100% use. Fifth application. The graft site was free and clear of any infection. The wound/skin graft substitute was dressed with nonadherent bandage secured in place with Steri-Strips followed by bolster dressing as well as a double layer Tubigrip. Educated the patient to elevate her bilateral lower extremity is much as possible and not to have her feet in a dependent position when she was understanding of. Follow-up at the wound care center with Dr. Mota in 1 week. (2) Other specified peripheral vascular diseases: CODE(S): I73.89 - Other specified peripheral vascular diseases
--- NOTE | 2024-02-04 08:14 | WC ---
PHOTO 02/03/24 LEFT HALLUX
[2024-02-10 09:58] VITALS: BP 136/82; PULSE 68; RESP 16; TEMP 36.3; BMI 16.9
--- NOTE | 2024-02-10 10:42 | PCM.WC.PN ---
History of Present Illness Date of Service: 02/10/24 Chief Complaint: Coccyx wound and right ischium left hip wounds History of Wound: Ms Perales is a 73-year-old female seen at the wound care center today for follow-up evaluation of a coccyx wounds it has been going on for over 1 year they have been using all sorts of different products but is only been seen by the home health care nurse and getting dressing changes twice a week. At this point it superficial and open stage II so we will try using some Fibracol on that area. 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 Patient states that the wounds on her right ischium is from scooting and friction and has been constant going on and off for 20 years it is closed at this time and flushing color she says it was she could get her finger inside the wound at 1 time but is healed now the left hip trochanter is scabbed but it is healed it is not open and we will pad and protect both these areas for now and then my suggestion is were going to order some DuoDERM film patches to put over them to keep them from breaking open. Subjective Subjective Ms. Perales 71-year-old female presenting to the wound care center today for follow-up evaluation of left foot wound. She has kept her graft and dressing clean dry and intact. She is elevating as instructed. No other trauma. Denies constitutional symptoms. Other pedal complaints at this time. Objective Data Objective Data Vital Signs: Vital Signs Temp Pulse Resp BP O2 Del Method 97.3 F L 68 16 136/82 H Room Air 02/10/24 09:58 02/10/24 09:58 02/10/24 09:58 02/10/24 09:58 02/10/24 09:58 Oxygen Delivery Method Room Air Weight: 40.551 kg Body Mass Index (BMI) 16.9 Physical Exam Narrative Vascular: DP and PT pulses are faintly palpable to left lower extremity. CFT is delayed. Skin temperature gradient is warm to cool from proximal ankle to distal digit. No erythema or proximal streaking is appreciated. Neurological: Light touch absent. Protective sensation is absent. Dermatological: Full-thickness ulceration to the first metatarsal phalangeal joint dorsally measuring 1.5 x 1.4 x 0.1 cm wound base is granular nature. No drainage or sign of infection. . Excisional debridement down to and including subcutaneous tissue with a number 5 mm dermal curette to the left foot ulceration at the level of the first metatarsal phalangeal joint without incident. Predebridement measurement was 1.4 x 1.4 x 0.1 cm. Postdebridement measurement is 1.5 x 1.4 x 0.1 cm. EpiFix 18 mm disc was applied to the left full-thickness ulceration with 100% use. Sixth application. The graft site was free and clear of any infection. The wound/skin graft substitute was dressed with nonadherent bandage secured in place with Steri-Strips followed by bolster dressing as well as a double layer Tubigrip. Musculoskeletal: Muscle strength is 0 out of 5 bilateral. No pain on palpation to the full-thickness wound. No pain with calf pressure. Debridement Note Debridement Note Debridement Free Text: Excisional debridement down to and including subcutaneous tissue with a number 5 mm dermal curette to the left foot ulceration at the level of the first metatarsal phalangeal joint without incident. Predebridement measurement was 1.4 x 1.4 x 0.1 cm. Postdebridement measurement is 1.5 x 1.4 x 0.1 cm. EpiFix 18 mm disc was applied to the left full-thickness ulceration with 100% use. Sixth application. The graft site was free and clear of any infection. The wound/skin graft substitute was dressed with nonadherent bandage secured in place with Steri-Strips followed by bolster dressing as well as a double layer Tubigrip. Post-Debridement Measurements and Additional Note: Post-Debridement Measurements/Treatment - Nurse 1 - General Ulcer Assessment Start: 02/03/24 11:35 Freq: Status: Active Protocol: MARY.AINSLEY Activity Type Activity Date Activity User E-sign Co-sign Detail Recorded Client Recorded Date Recorded By Document 02/03/24 11:35 [id number] 02/03/24 11:42 Document 02/10/24 09:58 [id number] 02/10/24 10:09 02/03/24 02/10/24 11:35 09:58 - Today's Visit Information Type of service Follow-up Visit Follow-up Visit (Physician/SALES APPOINTMENT COORDINATOR (Physician/SALES APPOINTMENT COORDINATOR ) ) Arrival Mode Wheelchair Wheelchair Transfer Assistance None None Patient Identification Verified (Name & Yes Yes ) Height and Weight Body Mass Index (BMI) 16.9 16.9 BMI Classification Underweight Underweight Vital Signs Temperature (97.8 F-99.1 F) 96.3 F L 97.3 F L Temperature Source Temporal Temporal Pulse Rate (60-100) 68 68 Pulse Location Monitor Monitor Respiratory Rate (12-18) 16 16 Respiratory rate source Observation Observation Oxygen Delivery Method Room Air Room Air Blood Pressure (90/60-120/80) 127/69 H 136/82 H Blood Pressure Mean (mm Hg) 88 100 Source Monitor Monitor Position Sitting Sitting Blood Pressure Location Right Arm Right Arm History Since Last Visit- (Skip if this is Patient's initial visit) Have you changed medications since your No No last visit? Any new allergies or adverse reactions No No Had a fall/change in ADL's that may No No increase risk of falls Signs or symptoms of abuse and/or No No neglect since last visit Have you been in the hospital since your No No last visit? Has dressing in place as prescribed Yes Yes Has compression in place as prescribed N/A N/A Has offloadiing in place as prescribed Yes Yes Experienced any changes in pain level or No No management Left Footwear Surgical Shoe with pressure relief insole Right Footwear Surgical Shoe with pressure relief insole Pain Scale: 0-10 Numeric Is Patient Pain Free? Yes Yes - Nurse 1 - General Ulcer Measurement Start: 02/03/24 11:35 Freq: Status: Active Protocol: Activity Type Activity Date Activity User E-sign Co-sign Detail Recorded Client Recorded Date Recorded By Document 02/03/24 11:42 [id number] 02/03/24 11:43 Document 02/10/24 09:58 [id number] 02/10/24 10:09 02/03/24 02/10/24 11:42 09:58 Wound Center Nurse 1 #10 left hallux -Current Size (cm) - Length 1.0 1.5 -Current Size (cm) - Width 1.1 1.6 -Current Size (cm) - Depth 0.1 0.1 -Total Square Cm 1.10 2.40 -Date of Last Picture (Recall this 02/03/24 field) -Photo Taken Yes No -Epithelialization Small 1-33% Small 1-33% -Tunneling No No -Undermining/Tunneling No No -Circular Undermining No No -Change in Wound Grade/Stage No -Exudate Amt None Present Medium -Exudate Type Serosanguineous -Wound Margin Distinct, Distinct, Outline Outline Attached Attached -Granulation Amt Small (1-33%) Medium (34-66%) -Granulation Quality Red -Slough/Fibrin No -Necrosis Amt None Present (0 %) -Texture (Leyla-wound Skin Appearance) Assessed Assessed -Moisture (Leyla-wound Skin Appearance) Assessed Assessed -Color (Leyla-wound Skin Appearance) Assessed Assessed -Temperature (Leyla-wound Skin No Abnormality No Abnormality Appearance) (Pt Warm) (Pt Warm) -Tenderness on Palpation (Leyla-wound No Skin Appearance) -Ulcer Cleansing Soap and Water Soap and Water -Foul Odor after Cleansing No No WC - Nurse 2 - General Ulcer CM Notes Start: 02/03/24 11:35 Freq: Status: Active Protocol: Activity Type Activity Date Activity User E-sign Co-sign Detail Recorded Client Recorded Date Recorded By Document 02/03/24 11:54 [id number] 02/03/24 11:58 Document 02/10/24 10:15 [id number] 02/10/24 10:19 02/03/24 02/10/24 11:54 10:15 Wound Center Nurse 2 #10 left hallux -Time 11:56 10:16 -Correct Patient Yes Yes -Correct Side, Site, Position Yes Yes -Correct Procedure Yes Yes -Procedure Performed Yes Yes -Type of Procedure Debridement Debridement -Clinical Debridement Subcutaneous Subcutaneous -Tissue Removed Subcutaneous Subcutaneous -Post Debridement (cm) - Length 1.8 1.5 -Post Debridement (cm) - Width 1.8 1.4 -Post Debridement (cm) - Depth 0.2 0.1 -Total Square (Post) (cm) 3.24 2.10 -Area of Debridement (cm) - Length 1.8 1.5 -Area of Debridement (cm) - Width 1.8 1.4 -Total Square (Area) (cm) 3.24 2.10 -Tunneling No No -Undermining/Tunneling No No -Circular Undermining No No -Wound/Ulcer Outcome Not Healed Not Healed -Ulcer Cleansing Rinsed/ Rinsed/ Irrigated with Irrigated with Saline Saline -Foul Odor after Cleansing No No -Bioengineered Tissue Yes Yes -Type of Bioengineered Tissue Epifix 18mm Epifix 18mm Disc Disc -Expiration Date 08/02/28 08/02/28 -Product Lot Number [id number] -Percent Used 100 100 -Lot number of Saline Used [id number] -Bleeding Controlled with Pressure Pressure -Treatment Response Procedure Procedure Tolerated Well Tolerated Well -Offloading Yes No -Type of Offloading Surgical Shoe -Debridement - Subq, 1st 20sq cm No No -Apply Skin Sub - 1st 25 sq cm - Feet 1 1 -Epifix 18mm Disc 3 3 Pain Scale: 0-10 Numeric Is Patient Pain Free? Yes Yes WC - Nurse 3 - General Ulcer D/C NN Start: 02/03/24 11:35 Freq: Status: Active Protocol: Activity Type Activity Date Activity User E-sign Co-sign Detail Recorded Client Recorded Date Recorded By Document 02/10/24 10:24 KW [id number] 02/10/24 10:25 KW 02/10/24 10:24 Wound Care Center Nurse 3 #10 left hallux -Primary Dressing Applied Mepilex Border -Mepilex Border 1 Left -Tubular Bandage Single Layer -Size of Tubigrip Used Size D -Size D ($) 1 Pain Scale: 0-10 Numeric Is Patient Pain Free? Yes Assessment/Plan Assessment/Plan (1) Non-pressure chronic ulcer of other part of left foot with fat layer exposed: CODE(S): L97.522 - Non-pressure chronic ulcer of other part of left foot with fat layer exposed PLAN: Patient was examined and evaluated. All findings were discussed with the patient. All questions were answered to the patient's satisfaction. Excisional debridement down to and including subcutaneous tissue with a number 5 mm dermal curette to the left foot ulceration at the level of the first metatarsal phalangeal joint without incident. Predebridement measurement was 1.4 x 1.4 x 0.1 cm. Postdebridement measurement is 1.5 x 1.4 x 0.1 cm. EpiFix 18 mm disc was applied to the left full-thickness ulceration with 100% use. Sixth application. The graft site was free and clear of any infection. The wound/skin graft substitute was dressed with nonadherent bandage secured in place with Steri-Strips followed by bolster dressing as well as a double layer Tubigrip. Educated the patient to elevate her bilateral lower extremity is much as possible and not to have her feet in a dependent position when she was understanding of. Follow-up at the wound care center with Dr. Mota in 1 week. (2) Other specified peripheral vascular diseases: CODE(S): I73.89 - Other specified peripheral vascular diseases
[2024-02-17 10:42] VITALS: BP 119/70; PULSE 75; RESP 18; TEMP 36.2; BMI 16.9
--- NOTE | 2024-02-17 11:36 | PN.PCM_ITS ---
History of Present Illness Date of Service: 02/17/24 Chief Complaint: Coccyx wound and right ischium left hip wounds History of Wound: Ms Perales is a 73-year-old female seen at the wound care center today for follow-up evaluation of a coccyx wounds it has been going on for over 1 year they have been using all sorts of different products but is only been seen by the home health care nurse and getting dressing changes twice a week. At this point it superficial and open stage II so we will try using some Fibracol on that area. 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 Patient states that the wounds on her right ischium is from scooting and friction and has been constant going on and off for 20 years it is closed at this time and flushing color she says it was she could get her finger inside the wound at 1 time but is healed now the left hip troc hanter is scabbed but it is healed it is not open and we will pad and protect both these areas for now and then my suggestion is were going to order some DuoDERM film patches to put over them to keep them from breaking open. Subjective Subjective Mrs. Perales is a 73-year-old female presented clinic today for follow evaluation of full-thickness ulceration and graft application to the left foot. She is left her dressing clean dry and intact. She is elevating as much as possible. She is currently nonweightbearing and resides in a wheelchair. Patient is making sure that she is not keeping her feet in a dependent position. Denies trauma. Denies constitutional symptoms. Other pedal complaints at this time. Objective Data Objective Data Vital Signs: Vital Signs Temp Pulse Resp BP O2 Del Method 97.2 F L 75 18 119/70 Room Air 02/17/24 10:42 02/17/24 10:42 02/17/24 10:42 02/17/24 10:42 02/17/24 10:42 Oxygen Delivery Method Room Air Weight: 40.551 kg Body Mass Index (BMI) 16.9 Physical Exam Narrative Vascular: DP and PT pulses are faintly palpable to left lower extremity. CFT is delayed. Skin temperature gradient is warm to cool from proximal ankle to distal digit. No erythema or proximal streaking is appreciated. Neurological: Light touch absent. Protective sensation is absent. Dermatological: Full-thickness ulceration to the first metatarsal phalangeal joint dorsally measuring 1.4 x 1.2 x 0.1 cm. Wound base is granular nature. No drainage or sign of infection. Excisional debridement down to and including subcutaneous tissue with a number 5 mm dermal curette to the left foot ulceration at the level of the first metatarsal phalangeal joint without incident. Predebridement measurement was 1.3 x 1.1 x 0.1 cm. Postdebridement measurement is 1.4 x 1.2 x 0.1 cm. EpiFix 18 mm disc was applied to the left full-thickness ulceration with 100% use. Seventh application. The graft site was free and clear of any infection. The wound/skin graft substitute was dressed with nonadherent bandage secured in place with Steri-Strips followed by bolster dressing as well as a double layer Tubigrip. Musculoskeletal: Muscle strength is 0 out of 5 bilateral. No pain on palpation to the full-thickness wound. No pain with calf pressure. Debridement Note Debridement Note Debridement Free Text: Excisional debridement down to and including subcutaneous tissue with a number 5 mm dermal curette to the left foot ulceration at the level of the first metatarsal phalangeal joint without incident. Predebridement measurement was 1.3 x 1.1 x 0.1 cm. Postdebridement measurement is 1.4 x 1.2 x 0.1 cm. EpiFix 18 mm disc was applied to the left full-thickness ulceration with 100% use. Seventh application. The graft site was free and clear of any infection. The wound/skin graft substitute was dressed with nonadherent bandage secured in place with Steri-Strips followed by bolster dressing as well as a double layer Tubigrip. Post-Debridement Measurements and Additional Note: Post-Debridement Measurements/Treatment MARY - Nurse 1 - General Ulcer Assessment Start: 02/03/24 11:35 Freq: Status: Active Protocol: JOSEPHINE Activity Type Activity Date Activity User E-sign Co-sign Detail Recorded Client Recorded Date Recorded By Document 02/03/24 11:35 [id number] 02/03/24 11:42 GM Document 02/10/24 09:58 GM [id number] 02/10/24 10:09 GM Document 02/17/24 10:42 KW [id number] 02/17/24 10:45 KW 02/03/24 02/10/24 02/17/24 11:35 09:58 10:42 - Today's Visit Information Type of service Follow-up Visit Follow-up Visit Follow-up Visit (Physician/TALLOW MAKER (Physician/TALLOW MAKER (Physician/TALLOW MAKER ) ) ) Arrival Mode Wheelchair Wheelchair Wheelchair Transfer Assistance None None Patient Identification Verified (Name & Yes Yes Yes ) Height and Weight Body Mass Index (BMI) 16.9 16.9 16.9 BMI Classification Underweight Underweight Underweight Vital Signs Temperature (97.8 F-99.1 F) 96.3 F L 97.3 F L 97.2 F L Temperature Source Temporal Temporal Temporal Pulse Rate (60-100) 68 68 75 Pulse Location Monitor Monitor Monitor Respiratory Rate (12-18) 16 16 18 Respiratory rate source Observation Observation Observation Oxygen Delivery Method Room Air Room Air Room Air Blood Pressure (90/60-120/80) 127/69 H 136/82 H 119/70 Blood Pressure Mean (mm Hg) 88 100 86 Source Monitor Monitor Monitor Position Sitting Sitting Sitting Blood Pressure Location Right Arm Right Arm Left Arm History Since Last Visit- (Skip if this is Patient's initial visit) Have you changed medications since your No No No last visit? Any new allergies or adverse reactions No No No Had a fall/change in ADL's that may No No No increase risk of falls Signs or symptoms of abuse and/or No No No neglect since last visit Have you been in the hospital since your No No No last visit? Has dressing in place as prescribed Yes Yes Yes Has compression in place as prescribed N/A N/A N/A Has offloadiing in place as prescribed Yes Yes N/A Experienced any changes in pain level or No No No management Left Footwear Surgical Shoe Surgical Shoe with pressure with pressure relief insole relief insole Right Footwear Surgical Shoe Surgical Shoe with pressure with pressure relief insole relief insole Pain Scale: 0-10 Numeric Is Patient Pain Free? Yes Yes Yes - Nurse 1 - General Ulcer Measurement Start: 02/03/24 11:35 Freq: Status: Active Protocol: Activity Type Activity Date Activity User E-sign Co-sign Detail Recorded Client Recorded Date Recorded By Document 02/03/24 11:42 [id number] 02/03/24 11:43 Document 02/10/24 09:58 [id number] 02/10/24 10:09 Document 02/17/24 10:42 KW [id number] 02/17/24 10:45 KW 02/03/24 02/10/24 02/17/24 11:42 09:58 10:42 Wound Center Nurse 1 #10 left hallux -Current Size (cm) - Length 1.0 1.5 1.5 -Current Size (cm) - Width 1.1 1.6 1.3 -Current Size (cm) - Depth 0.1 0.1 0.1 -Total Square Cm 1.10 2.40 1.95 -Date of Last Picture (Recall this 02/03/24 02/17/24 field) -Photo Taken Yes No -Epithelialization Small 1-33% Small 1-33% -Tunneling No No -Undermining/Tunneling No No -Circular Undermining No No -Change in Wound Grade/Stage No -Exudate Amt None Present Medium Small -Exudate Type Serosanguineous Serosanguineous -Wound Margin Distinct, Distinct, Distinct, Outline Outline Outline Attached Attached Attached -Granulation Amt Small (1-33%) Medium (34-66%) Large (67-100%) -Granulation Quality Red Red -Slough/Fibrin No -Necrosis Amt None Present (0 %) -Texture (Leyla-wound Skin Appearance) Assessed Assessed Assessed -Moisture (Leyla-wound Skin Appearance) Assessed Assessed Assessed -Color (Leyla-wound Skin Appearance) Assessed Assessed Assessed -Temperature (Leyla-wound Skin No Abnormality No Abnormality No Abnormality Appearance) (Pt Warm) (Pt Warm) (Pt Warm) -Tenderness on Palpation (Leyla-wound No No Skin Appearance) -Ulcer Cleansing Soap and Water Soap and Water Soap and Water -Foul Odor after Cleansing No No No WC - Nurse 2 - General Ulcer CM Notes Start: 02/03/24 11:35 Freq: Status: Active Protocol: Activity Type Activity Date Activity User E-sign Co-sign Detail Recorded Client Recorded Date Recorded By Document 02/03/24 11:54 [email or web address] [id number] 02/03/24 11:58 JF Document 02/10/24 10:15 JF [id number] 02/10/24 10:19 JF Document 02/17/24 10:57 JF [id number] 02/17/24 10:58 JF 02/03/24 02/10/24 02/17/24 11:54 10:15 10:57 Wound Center Nurse 2 #10 left hallux -Time 11:56 10:16 10:57 -Correct Patient Yes Yes Yes -Correct Side, Site, Position Yes Yes Yes -Correct Procedure Yes Yes Yes -Procedure Performed Yes Yes Yes -Type of Procedure Debridement Debridement Debridement -Clinical Debridement Subcutaneous Subcutaneous Subcutaneous -Tissue Removed Subcutaneous Subcutaneous Subcutaneous -Post Debridement (cm) - Length 1.8 1.5 1.4 -Post Debridement (cm) - Width 1.8 1.4 1.2 -Post Debridement (cm) - Depth 0.2 0.1 0.1 -Total Square (Post) (cm) 3.24 2.10 1.68 -Area of Debridement (cm) - Length 1.8 1.5 1.4 -Area of Debridement (cm) - Width 1.8 1.4 1.2 -Total Square (Area) (cm) 3.24 2.10 1.68 -Tunneling No No No -Undermining/Tunneling No No No -Circular Undermining No No No -Wound/Ulcer Outcome Not Healed Not Healed Not Healed -Ulcer Cleansing Rinsed/ Rinsed/ Rinsed/ Irrigated with Irrigated with Irrigated with Saline Saline Saline -Foul Odor after Cleansing No No No -Bioengineered Tissue Yes Yes Yes -Type of Bioengineered Tissue Epifix 18mm Epifix 18mm Epifix 18mm Disc Disc Disc -Expiration Date 08/02/28 08/02/28 08/02/28 -Product Lot Number [id number] -Percent Used 100 100 100 -Lot number of Saline Used [id number] -Bleeding Controlled with Pressure Pressure Pressure -Treatment Response Procedure Procedure Procedure Tolerated Well Tolerated Well Tolerated Well -Offloading Yes No Yes -Type of Offloading Surgical Shoe Surgical Shoe -Debridement - Subq, 1st 20sq cm No No No -Apply Skin Sub - 1st 25 sq cm - Feet 1 1 1 -Epifix 18mm Disc 3 3 3 Pain Scale: 0-10 Numeric Is Patient Pain Free? Yes Yes Yes WC - Nurse 3 - General Ulcer D/C NN Start: 02/03/24 11:35 Freq: Status: Active Protocol: Activity Type Activity Date Activity User E-sign Co-sign Detail Recorded Client Recorded Date Recorded By Document 02/10/24 10: KW [id number] 02/10/24 10:25 KW Document 02/17/24 11:06 RB [id number] 02/17/24 11:07 RB Edit Result 02/17/24 11:06 RB (1) [id number] 02/17/24 11:09 RB (1) #10 left hallux - Mepilex Border 1 => 2 02/10/24 02/17/24 10:24 11:06 Wound Care Center Nurse 3 #10 left hallux -Primary Dressing Applied Mepilex Border Mepilex Border -Mepilex Border 1 2 -Wound Comment(s) cotton liner for sock abd surgical shoe Left -Tubular Bandage Single Layer -Size of Tubigrip Used Size D -Size D ($) 1 -Other D tubigrip Treatment Response Procedure Tolerated Well Pain Scale: 0-10 Numeric Is Patient Pain Free? 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 All findings were discussed with the patient. All questions were answered to the patient's satisfaction. Excisional debridement down to and including subcutaneous tissue with a number 5 mm dermal curette to the left foot ulceration at the level of the first metatarsal phalangeal joint without incident. Predebridement measurement was 1.3 x 1.1 x 0.1 cm. Postdebridement measurement is 1.4 x 1.2 x 0.1 cm. EpiFix 18 mm disc was applied to the left full-thickness ulceration with 100% use. Seventh application. The graft site was free and clear of any infection. The wound/skin graft substitute was dressed with nonadherent bandage secured in place with Steri-Strips followed by bolster dressing as well as a double layer Tubigrip. Educated the patient to elevate her bilateral lower extremity is much as possible and not to have her feet in a dependent position when she was understanding of. Follow-up at the wound care center with Dr. Mota in 1 week. (2) Other specified peripheral vascular diseases: CODE(S): I73.89 - Other specified peripheral vascular diseases
--- NOTE | 2024-02-18 11:32 | WC ---
PHOTO 02/17/24 LT [email or web address]
[2024-02-24 10:52] VITALS: BP 112/65; PULSE 72; RESP 18; TEMP 36.2; BMI 16.9
--- NOTE | 2024-02-24 11:15 | PCM.WC.PN ---
History of Present Illness Date of Service: 02/24/24 Chief Complaint: Coccyx wound and right ischium left hip wounds History of Wound: Ms Perales is a 73-year-old female seen at the wound care center today for follow-up evaluation of a coccyx wounds it has been going on for over 1 year they have been using all sorts of different products but is only been seen by the home health care nurse and getting dressing changes twice a week. At this point it superficial and open stage II so we will try using some Fibracol on that area. 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 Patient states that the wounds on her right ischium is from scooting and friction and has been constant going on and off for 20 years it is closed at this time and flushing color she says it was she could get her finger inside the wound at 1 time but is healed now the left hip trochanter is scabbed but it is healed it is not open and we will pad and protect both these areas for now and then my suggestion is were going to order some DuoDERM film patches to put over them to keep them from breaking open. Subjective Subjective Ms. Perales is a 73-year-old female presented clinic to follow-up evaluation of full-thickness wound to the right foot. Patient has left her graft site clean dry and intact. She has elevated as instructed. She is nonweightbearing due to paralysis with assistance of a wheelchair. She admits that the wound is improving. Denies any pain to the left foot. She does admit to getting scratched by her friend's cat and is self treating. Denies any infection. Denies trauma. Denies constitutional symptoms. No other pedal complaints at this time. Objective Data Objective Data Vital Signs: Vital Signs Temp Pulse Resp BP O2 Del Method 97.2 F L 72 18 112/65 Room Air 02/24/24 10:52 02/24/24 10:52 02/24/24 10:52 02/24/24 10:52 02/17/24 10:42 Oxygen Delivery Method Room Air Weight: 40.551 kg Body Mass Index (BMI) 16.9 Physical Exam Narrative Vascular: DP and PT pulses are faintly palpable to left lower extremity. CFT is delayed. Skin temperature gradient is warm to cool from proximal ankle to distal digit. No erythema or proximal streaking is appreciated. Neurological: Light touch absent. Protective sensation is absent. Dermatological: Full-thickness ulceration to the first metatarsal phalangeal joint dorsally measuring 1.0 x 1.3 x 0.1 cm. Wound base is granular nature. No drainage or sign of infection. Excisional debridement down to and including subcutaneous tissue with a number 5 mm dermal curette to the left foot ulceration at the level of the first metatarsal phalangeal joint without incident. Predebridement measurement was 0.9 x 0.2 x 0.1 cm. Postdebridement measurement is 1.0 x 1.3 x 0.1 cm. EpiFix 18 mm disc was applied to the left full-thickness ulceration with 100% use. Eighth application. The graft site was free and clear of any infection. The wound/skin graft substitute was dressed with nonadherent bandage secured in place with Steri-Strips followed by bolster dressing as well as a double layer Tubigrip. Musculoskeletal: Muscle strength is 0 out of 5 bilateral. No pain on palpation to the full-thickness wound. No pain with calf pressure. Debridement Note Debridement Note Debridement Free Text: Excisional debridement down to and including subcutaneous tissue with a number 5 mm dermal curette to the left foot ulceration at the level of the first metatarsal phalangeal joint without incident. Predebridement measurement was 0.9 x 0.2 x 0.1 cm. Postdebridement measurement is 1.0 x 1.3 x 0.1 cm. EpiFix 18 mm disc was applied to the left full-thickness ulceration with 100% use. Eighth application. The graft site was free and clear of any infection. The wound/skin graft substitute was dressed with nonadherent bandage secured in place with Steri-Strips followed by bolster dressing as well as a double layer Tubigrip. Post-Debridement Measurements and Additional Note: Post-Debridement Measurements/Treatment - Nurse 1 - General Ulcer Assessment Start: 02/03/24 11:35 Freq: Status: Active Protocol: EDMAREXT Activity Type Activity Date Activity User E-sign Co-sign Detail Recorded Client Recorded Date Recorded By Document 02/03/24 11:35 [id number] 02/03/24 11:42 GM Document 02/10/24 09:58 [id number] 02/10/24 10:09 GM Document 02/17/24 10:42 KW [id number] 02/17/24 10:45 KW Document 02/24/24 10:52 DL [id number] 02/24/24 10:57 DL 02/03/24 02/10/24 02/17/24 11:35 09:58 10:42 WC - Today's Visit Information Type of service Follow-up Visit Follow-up Visit Follow-up Visit (Physician/ENGINEERING PROJECT MANAGER (Physician/ENGINEERING PROJECT MANAGER (Physician/ENGINEERING PROJECT MANAGER ) ) ) Arrival Mode Wheelchair Wheelchair Wheelchair Transfer Assistance None None Patient Identification Verified (Name & Yes Yes Yes ) Patient Requires Transmission-Based Precautions Height and Weight Body Mass Index (BMI) 16.9 16.9 16.9 BMI Classification Underweight Underweight Underweight Vital Signs Temperature (97.8 F-99.1 F) 96.3 F L 97.3 F L 97.2 F L Temperature Source Temporal Temporal Temporal Pulse Rate (60-100) 68 68 75 Pulse Location Monitor Monitor Monitor Respiratory Rate (12-18) 16 16 18 Respiratory rate source Observation Observation Observation Oxygen Delivery Method Room Air Room Air Room Air Blood Pressure (90/60-120/80) 127/69 H 136/82 H 119/70 Blood Pressure Mean (mm Hg) 88 100 86 Source Monitor Monitor Monitor Position Sitting Sitting Sitting Blood Pressure Location Right Arm Right Arm Left Arm History Since Last Visit- (Skip if this is Patient's initial visit) Have you changed medications since your No No No last visit? Any new allergies or adverse reactions No No No Had a fall/change in ADL's that may No No No increase risk of falls Signs or symptoms of abuse and/or No No No neglect since last visit Have you been in the hospital since your No No No last visit? Has dressing in place as prescribed Yes Yes Yes Has compression in place as prescribed N/A N/A N/A Has offloadiing in place as prescribed Yes Yes N/A Experienced any changes in pain level or No No No management Left Footwear Surgical Shoe Surgical Shoe with pressure with pressure relief insole relief insole Right Footwear Surgical Shoe Surgical Shoe with pressure with pressure relief insole relief insole Pain Scale: 0-10 Numeric Is Patient Pain Free? Yes Yes Yes 02/24/24 10:52 WC - Today's Visit Information Type of service Follow-up Visit (Physician/ENGINEERING PROJECT MANAGER ) Arrival Mode Wheelchair Transfer Assistance None Patient Identification Verified (Name & Yes ) Patient Requires Transmission-Based No Precautions Height and Weight Body Mass Index (BMI) 16.9 BMI Classification Underweight Vital Signs Temperature (97.8 F-99.1 F) 97.2 F L Temperature Source Temporal Pulse Rate (60-100) 72 Pulse Location Monitor Respiratory Rate (12-18) 18 Respiratory rate source Observation Oxygen Delivery Method Blood Pressure (90/60-120/80) 112/65 Blood Pressure Mean (mm Hg) 80 Source Monitor Position Blood Pressure Location History Since Last Visit- (Skip if this is Patient's initial visit) Have you changed medications since your No last visit? Any new allergies or adverse reactions No Had a fall/change in ADL's that may No increase risk of falls Signs or symptoms of abuse and/or No neglect since last visit Have you been in the hospital since your No last visit? Has dressing in place as prescribed Yes Has compression in place as prescribed No Has offloadiing in place as prescribed Yes Experienced any changes in pain level or No management Left Footwear Right Footwear Pain Scale: 0-10 Numeric Is Patient Pain Free? Yes WC - Nurse 1 - General Ulcer Measurement Start: 02/03/24 11:35 Freq: Status: Active Protocol: Activity Type Activity Date Activity User E-sign Co-sign Detail Recorded Client Recorded Date Recorded By Document 02/03/24 11:42 [id number] 02/03/24 11:43 Document 02/10/24 09:58 GM [id number] 02/10/24 10:09 GM Document 02/17/24 10:42 KW [id number] 02/17/24 10:45 KW Document 02/24/24 10:52 DL [id number] 02/24/24 10:57 DL 02/03/24 02/10/24 02/17/24 11:42 09:58 10:42 Wound Center Nurse 1 #10 left hallux -Current Size (cm) - Length 1.0 1.5 1.5 -Current Size (cm) - Width 1.1 1.6 1.3 -Current Size (cm) - Depth 0.1 0.1 0.1 -Total Square Cm 1.10 2.40 1.95 -Date of Last Picture (Recall this 02/03/24 02/17/24 field) -Photo Taken Yes No -Epithelialization Small 1-33% Small 1-33% -Tunneling No No -Undermining/Tunneling No No -Circular Undermining No No -Change in Wound Grade/Stage No -Exudate Amt None Present Medium Small -Exudate Type Serosanguineous Serosanguineous -Wound Margin Distinct, Distinct, Distinct, Outline Outline Outline Attached Attached Attached -Granulation Amt Small (1-33%) Medium (34-66%) Large (67-100%) -Granulation Quality Red Red -Slough/Fibrin No -Necrosis Amt None Present (0 %) -Necrotic Tissue Type -Structure Exposed -Texture (Leyla-wound Skin Appearance) Assessed Assessed Assessed -Moisture (Leyla-wound Skin Appearance) Assessed Assessed Assessed -Color (Leyla-wound Skin Appearance) Assessed Assessed Assessed -Temperature (Leyla-wound Skin No Abnormality No Abnormality No Abnormality Appearance) (Pt Warm) (Pt Warm) (Pt Warm) -Tenderness on Palpation (Leyla-wound No No Skin Appearance) -Ulcer Cleansing Soap and Water Soap and Water Soap and Water -Foul Odor after Cleansing No No No -Anesthetic Used 02/24/24 10:52 Wound Center Nurse 1 #10 left hallux -Current Size (cm) - Length 1.1 -Current Size (cm) - Width 1.1 -Current Size (cm) - Depth 0.1 -Total Square Cm 1.21 -Date of Last Picture (Recall this field) -Photo Taken Yes -Epithelialization -Tunneling -Undermining/Tunneling -Circular Undermining -Change in Wound Grade/Stage -Exudate Amt Medium -Exudate Type Serosanguineous -Wound Margin Distinct, Outline Attached -Granulation Amt Medium (34-66%) -Granulation Quality Red -Slough/Fibrin -Necrosis Amt Medium (34-66%) -Necrotic Tissue Type Adherent Slough -Structure Exposed N/A -Texture (Leyla-wound Skin Appearance) Scarring -Moisture (Leyla-wound Skin Appearance) No Abnormality -Color (Leyla-wound Skin Appearance) No Abnormality -Temperature (Leyla-wound Skin No Abnormality Appearance) (Pt Warm) -Tenderness on Palpation (Leyla-wound Skin Appearance) -Ulcer Cleansing Soap and Water -Foul Odor after Cleansing No -Anesthetic Used 5% Lidocaine Gel WC - Nurse 2 - General Ulcer CM Notes Start: 02/03/24 11:35 Freq: Status: Active Protocol: Activity Type Activity Date Activity User E-sign Co-sign Detail Recorded Client Recorded Date Recorded By Document 02/03/24 11:54 [id number] 02/03/24 11:58 JF Document 02/10/24 10:15 [id number] 02/10/24 10:19 JF Document 02/17/24 10:57 JF [id number] 02/17/24 10:58 JF Document 02/24/24 11:11 [id number] 02/24/24 11:14 JF 02/03/24 02/10/24 02/17/24 11:54 10:15 10:57 Wound Center Nurse 2 #10 left hallux -Time 11:56 10:16 10:57 -Correct Patient Yes Yes Yes -Correct Side, Site, Position Yes Yes Yes -Correct Procedure Yes Yes Yes -Procedure Performed Yes Yes Yes -Type of Procedure Debridement Debridement Debridement -Clinical Debridement Subcutaneous Subcutaneous Subcutaneous -Tissue Removed Subcutaneous Subcutaneous Subcutaneous -Post Debridement (cm) - Length 1.8 1.5 1.4 -Post Debridement (cm) - Width 1.8 1.4 1.2 -Post Debridement (cm) - Depth 0.2 0.1 0.1 -Total Square (Post) (cm) 3.24 2.10 1.68 -Area of Debridement (cm) - Length 1.8 1.5 1.4 -Area of Debridement (cm) - Width 1.8 1.4 1.2 -Total Square (Area) (cm) 3.24 2.10 1.68 -Tunneling No No No -Undermining/Tunneling No No No -Circular Undermining No No No -Wound/Ulcer Outcome Not Healed Not Healed Not Healed -Ulcer Cleansing Rinsed/ Rinsed/ Rinsed/ Irrigated with Irrigated with Irrigated with Saline Saline Saline -Foul Odor after Cleansing No No No -Bioengineered Tissue Yes Yes Yes -Type of Bioengineered Tissue Epifix 18mm Epifix 18mm Epifix 18mm Disc Disc Disc -Expiration Date 08/02/28 08/02/28 08/02/28 -Product Lot Number [id number] -Percent Used 100 100 100 -Lot number of Saline Used [id number] -Bleeding Controlled with Pressure Pressure Pressure -Treatment Response Procedure Procedure Procedure Tolerated Well Tolerated Well Tolerated Well -Offloading Yes No Yes -Type of Offloading Surgical Shoe Surgical Shoe -Debridement - Subq, 1st 20sq cm No No No -Apply Skin Sub - 1st 25 sq cm - Feet 1 1 1 -Epifix 18mm Disc 3 3 3 Pain Scale: 0-10 Numeric Is Patient Pain Free? Yes Yes Yes 02/24/24 11:11 Wound Center Nurse 2 #10 left hallux -Time 11:12 -Correct Patient Yes -Correct Side, Site, Position Yes -Correct Procedure Yes -Procedure Performed Yes -Type of Procedure Debridement -Clinical Debridement Subcutaneous -Tissue Removed Subcutaneous -Post Debridement (cm) - Length 1.0 -Post Debridement (cm) - Width 1.3 -Post Debridement (cm) - Depth 0.1 -Total Square (Post) (cm) 1.30 -Area of Debridement (cm) - Length 1.0 -Area of Debridement (cm) - Width 1.3 -Total Square (Area) (cm) 1.30 -Tunneling No -Undermining/Tunneling No -Circular Undermining No -Wound/Ulcer Outcome Not Healed -Ulcer Cleansing Rinsed/ Irrigated with Saline -Foul Odor after Cleansing No -Bioengineered Tissue Yes -Type of Bioengineered Tissue Epifix 18mm Disc -Expiration Date 09/01/28 -Product Lot Number [id number] -Percent Used 100 -Lot number of Saline Used [id number] -Bleeding Controlled with Pressure -Treatment Response Procedure Tolerated Well -Offloading Yes -Type of Offloading Surgical Shoe -Debridement - Subq, 1st 20sq cm No -Apply Skin Sub - 1st 25 sq cm - Feet 1 -Epifix 18mm Disc 3 Pain Scale: 0-10 Numeric Is Patient Pain Free? Yes - Nurse 3 - General Ulcer D/C NN Start: 02/03/24 11:35 Freq: Status: Active Protocol: Activity Type Activity Date Activity User E-sign Co-sign Detail Recorded Client Recorded Date Recorded By Document 02/10/24 10:24 KW [id number] 02/10/24 10:25 KW Document 02/17/24 11:06 RB [id number] 02/17/24 11:07 RB Edit Result 02/17/24 11:06 RB (1) [id number] 02/17/24 11:09 RB (1) #10 left hallux - Mepilex Border 1 => 2 02/10/24 02/17/24 10:24 11:06 Wound Care Center Nurse 3 #10 left hallux -Primary Dressing Applied Mepilex Border Mepilex Border -Mepilex Border 1 2 -Wound Comment(s) cotton liner for sock abd surgical shoe Left -Tubular Bandage Single Layer -Size of Tubigrip Used Size D -Size D ($) 1 -Other D tubigrip Treatment Response Procedure Tolerated Well Pain Scale: 0-10 Numeric Is Patient Pain Free? Yes Yes WC - Visit Discharge Discharge Condition Stable Ambulatory Status Wheelchair Transportation Private Auto Medication Reconcilliation completed & No provided to patient/care provider Clinical Summary of Care Provided Yes Assessment/Plan Assessment/Plan (1) Non-pressure chronic ulcer of other part of left foot with fat layer exposed: CODE(S): L97.522 - Non-pressure chronic ulcer of other part of left foot with fat layer exposed PLAN: Patient was examined and evaluated. All findings were discussed with the patient. All questions were answered to the patient's satisfaction. Excisional debridement down to and including subcutaneous tissue with a number 5 mm dermal curette to the left foot ulceration at the level of the first metatarsal phalangeal joint without incident. Predebridement measurement was 0.9 x 0.2 x 0.1 cm. Postdebridement measurement is 1.0 x 1.3 x 0.1 cm. EpiFix 18 mm disc was applied to the left full-thickness ulceration with 100% use. Eighth application. The graft site was free and clear of any infection. The wound/skin graft substitute was dressed with nonadherent bandage secured in place with Steri-Strips followed by bolster dressing as well as a double layer Tubigrip. Educated the patient to elevate her bilateral lower extremity is much as possible and not to have her feet in a dependent position when she was understanding of. Patient will follow-up with one of the providers the wound care center next at a courtesy. Then follow-up at the wound care center with Dr. Mota in 2 week. (2) Other specified peripheral vascular diseases: CODE(S): I73.89 - Other specified peripheral vascular diseases
[2024-03-03 09:33] VITALS: BP 113/64; PULSE 79; RESP 18; TEMP 26.1; BMI 16.9
--- NOTE | 2024-03-03 12:07 | PN.PCM_ITS ---
History of Present Illness Date of Service: 03/03/24 Chief Complaint: Left foot ulcer History of Wound: Ms Perales is a 73-year-old female seen at the wound care center today for follow-up evaluation of a coccyx wounds it has been going on for over 1 year they have been using all sorts of different products but is only been seen by the home health care nurse and getting dressing changes twice a week. At this point it superficial and open stage II so we will try using some Fibracol on that area. 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 Patient states that the wounds on her right ischium is from scooting and friction and has been constant going on and off for 20 years it is closed at this time and flushing color she says it was she could get her finger inside the wound at 1 time but is healed now the left hip trochanter is scabbed but it is healed it is not open and we will pad and protect both these areas for now and then my suggestion is were going to order some DuoDERM film patches to put over them to keep them from breaking open. Progress of Wound: Ms. Perales is being seen as a courtesy visit for Dr. Mota. Being managed for left foot/great toe ulcer. Has had EpiFix applied and so far, has had 8. No new concerns reported at this time. She believes that it is improving. Objective Data Objective Data Vital Signs: Vital Signs Temp Pulse Resp BP O2 Del Method 79 F L 79 18 113/64 Room Air 03/03/24 09:33 03/03/24 09:33 03/03/24 09:33 03/03/24 09:33 03/03/24 09:33 Oxygen Delivery Method Room Air Weight: 89 lb 6.4 oz Body Mass Index (BMI) 16.9 Charges/Coding Procedures Integumentary 150xxx-152xx: [id number] Skin sub graft trnk/arm/leg Physical Exam Const alert, oriented x3 and no apparent distress General Appearance: cooperative and well kempt HEENT normocephalic, head/scalp atraumatic and hearing grossly normal bilaterally Eyes EOMs intact bilaterally Neck full ROM and supple Resp normal respiratory effort Effort and Inspection: able to speak in complete sentences Skin Wounds: wounds noted size Size: See clinical note, bed granulating well, margins well approximated, no odor and open Debridement Note Debridement Note Wound debrided: Left foot (great toe) Type of Debridement: Excisional debridement Anesthesia Used: 4% Lidocaine Solution Depth: Down to and including healthy tissue and in the subcutaneous layer Percentage of wound debrided: 100 Instrument Used: 5mm curette Tissue Removed: Devitalized tissue Severity: Fat Layer Exposed Amount of bleeding with debridement: Mild Bleeding Controlled with: Pressure Patient tolerated procedure: Patient tolerated procedure well Post-Debridement Measurements and Additional Note: Post-Debridement Measurements/Treatment - Nurse 1 - General Ulcer Assessment Start: 02/03/24 11:35 Freq: Status: Active Protocol: MARYUlmart Activity Type Activity Date Activity User E-sign Co-sign Detail Recorded Client Recorded Date Recorded By Document 02/03/24 11:35 GM [id number] 02/03/24 11:42 GM Document 02/10/24 09:58 GM [id number] 02/10/24 10:09 GM Document 02/17/24 10:42 KW [id number] 02/17/24 10:45 KW Document 02/24/24 10:52 DL [id number] 02/24/24 10:57 DL Document 03/03/24 09:33 KW [id number] 03/03/24 09:44 KW 02/03/24 02/10/24 02/17/24 11:35 09:58 10:42 - Today's Visit Information Type of service Follow-up Visit Follow-up Visit Follow-up Visit (Physician/RUG DRY ROOM ATTENDANT (Physician/RUG DRY ROOM ATTENDANT (Physician/RUG DRY ROOM ATTENDANT ) ) ) Arrival Mode Wheelchair Wheelchair Wheelchair Transfer Assistance None None Patient Identification Verified (Name & Yes Yes Yes ) Patient Requires Transmission-Based Precautions Height and Weight Body Mass Index (BMI) 16.9 16.9 16.9 BMI Classification Underweight Underweight Underweight Vital Signs Temperature (97.8 F-99.1 F) 96.3 F L 97.3 F L 97.2 F L Temperature Source Temporal Temporal Temporal Pulse Rate (60-100) 68 68 75 Pulse Location Monitor Monitor Monitor Respiratory Rate (12-18) 16 16 18 Respiratory rate source Observation Observation Observation Oxygen Delivery Method Room Air Room Air Room Air Blood Pressure (90/60-120/80) 127/69 H 136/82 H 119/70 Blood Pressure Mean (mm Hg) 88 100 86 Source Monitor Monitor Monitor Position Sitting Sitting Sitting Blood Pressure Location Right Arm Right Arm Left Arm History Since Last Visit- (Skip if this is Patient's initial visit) Have you changed medications since your No No No last visit? Any new allergies or adverse reactions No No No Had a fall/change in ADL's that may No No No increase risk of falls Signs or symptoms of abuse and/or No No No neglect since last visit Have you been in the hospital since your No No No last visit? Has dressing in place as prescribed Yes Yes Yes Has compression in place as prescribed N/A N/A N/A Has offloadiing in place as prescribed Yes Yes N/A Experienced any changes in pain level or No No No management Left Footwear Surgical Shoe Surgical Shoe with pressure with pressure relief insole relief insole Right Footwear Surgical Shoe Surgical Shoe with pressure with pressure relief insole relief insole Pain Scale: 0-10 Numeric Is Patient Pain Free? Yes Yes Yes 02/24/24 03/03/24 10:52 09:33 WC - Today's Visit Information Type of service Follow-up Visit Follow-up Visit (Physician/RUG DRY ROOM ATTENDANT (Physician/RUG DRY ROOM ATTENDANT ) ) Arrival Mode Wheelchair Wheelchair Transfer Assistance None Patient Identification Verified (Name & Yes Yes ) Patient Requires Transmission-Based No Precautions Height and Weight Body Mass Index (BMI) 16.9 16.9 BMI Classification Underweight Underweight Vital Signs Temperature (97.8 F-99.1 F) 97.2 F L 79 F L Temperature Source Temporal Temporal Pulse Rate (60-100) 72 79 Pulse Location Monitor Monitor Respiratory Rate (12-18) 18 18 Respiratory rate source Observation Observation Oxygen Delivery Method Room Air Blood Pressure (90/60-120/80) 112/65 113/64 Blood Pressure Mean (mm Hg) 80 80 Source Monitor Monitor Position Sitting Blood Pressure Location Left Arm History Since Last Visit- (Skip if this is Patient's initial visit) Have you changed medications since your No No last visit? Any new allergies or adverse reactions No No Had a fall/change in ADL's that may No No increase risk of falls Signs or symptoms of abuse and/or No No neglect since last visit Have you been in the hospital since your No No last visit? Has dressing in place as prescribed Yes Yes Has compression in place as prescribed No N/A Has offloadiing in place as prescribed Yes Yes Experienced any changes in pain level or No No management Left Footwear Surgical Shoe with pressure relief insole Right Footwear Surgical Shoe with pressure relief insole Pain Scale: 0-10 Numeric Is Patient Pain Free? Yes Yes WC - Nurse 1 - General Ulcer Measurement Start: 02/03/24 11:35 Freq: Status: Active Protocol: Activity Type Activity Date Activity User E-sign Co-sign Detail Recorded Client Recorded Date Recorded By Document 02/03/24 11:42 GM [id number] 02/03/24 11:43 GM Document 02/10/24 09:58 GM [id number] 02/10/24 10:09 GM Document 02/17/24 10:42 KW [id number] 02/17/24 10:45 KW Document 02/24/24 10:52 DL [id number] 02/24/24 10:57 DL Document 03/03/24 09:33 KW [id number] 03/03/24 09:44 KW 02/03/24 02/10/24 02/17/24 11:42 09:58 10:42 Wound Center Nurse 1 #10 left hallux -Current Size (cm) - Length 1.0 1.5 1.5 -Current Size (cm) - Width 1.1 1.6 1.3 -Current Size (cm) - Depth 0.1 0.1 0.1 -Total Square Cm 1.10 2.40 1.95 -Date of Last Picture (Recall this 02/03/24 02/17/24 field) -Photo Taken Yes No -Epithelialization Small 1-33% Small 1-33% -Tunneling No No -Undermining/Tunneling No No -Circular Undermining No No -Change in Wound Grade/Stage No -Exudate Amt None Present Medium Small -Exudate Type Serosanguineous Serosanguineous -Wound Margin Distinct, Distinct, Distinct, Outline Outline Outline Attached Attached Attached -Granulation Amt Small (1-33%) Medium (34-66%) Large (67-100%) -Granulation Quality Red Red -Slough/Fibrin No -Necrosis Amt None Present (0 %) -Necrotic Tissue Type -Structure Exposed -Texture (Leyla-wound Skin Appearance) Assessed Assessed Assessed -Moisture (Leyla-wound Skin Appearance) Assessed Assessed Assessed -Color (Leyla-wound Skin Appearance) Assessed Assessed Assessed -Temperature (Leyla-wound Skin No Abnormality No Abnormality No Abnormality Appearance) (Pt Warm) (Pt Warm) (Pt Warm) -Tenderness on Palpation (Leyla-wound No No Skin Appearance) -Ulcer Cleansing Soap and Water Soap and Water Soap and Water -Foul Odor after Cleansing No No No -Anesthetic Used 02/24/24 03/03/24 10:52 09:33 Wound Center Nurse 1 #10 left hallux -Current Size (cm) - Length 1.1 1.5 -Current Size (cm) - Width 1.1 1.6 -Current Size (cm) - Depth 0.1 0.1 -Total Square Cm 1.21 2.40 -Date of Last Picture (Recall this 03/03/24 field) -Photo Taken Yes -Epithelialization -Tunneling -Undermining/Tunneling -Circular Undermining -Change in Wound Grade/Stage -Exudate Amt Medium Small -Exudate Type Serosanguineous Serosanguineous -Wound Margin Distinct, Distinct, Outline Outline Attached Attached -Granulation Amt Medium (34-66%) Medium (34-66%) -Granulation Quality Red Red -Slough/Fibrin -Necrosis Amt Medium (34-66%) Medium (34-66%) -Necrotic Tissue Type Adherent Slough Adherent Slough -Structure Exposed N/A -Texture (Leyla-wound Skin Appearance) Scarring Assessed -Moisture (Leyla-wound Skin Appearance) No Abnormality Assessed -Color (Leyla-wound Skin Appearance) No Abnormality Assessed -Temperature (Leyla-wound Skin No Abnormality No Abnormality Appearance) (Pt Warm) (Pt Warm) -Tenderness on Palpation (Leyla-wound No Skin Appearance) -Ulcer Cleansing Soap and Water Soap and Water -Foul Odor after Cleansing No No -Anesthetic Used 5% Lidocaine 5% Lidocaine Gel Gel WC - Nurse 2 - General Ulcer CM Notes Start: 02/03/24 11:35 Freq: Status: Active Protocol: Activity Type Activity Date Activity User E-sign Co-sign Detail Recorded Client Recorded Date Recorded By Document 02/03/24 11:54 POOJA [id number] 02/03/24 11:58 Document 02/10/24 10:15 POOJA [id number] 02/10/24 10:19 JF Document 02/17/24 10:57 JF [id number] 02/17/24 10:58 Document 02/24/24 11:11 JF [id number] 02/24/24 11:14 Document 03/03/24 10:09 [id number] 03/03/24 10:14 02/03/24 02/10/24 02/17/24 11:54 10:15 10:57 Wound Center Nurse 2 #10 left hallux -Time 11:56 10:16 10:57 -Correct Patient Yes Yes Yes -Correct Side, Site, Position Yes Yes Yes -Correct Procedure Yes Yes Yes -Procedure Performed Yes Yes Yes -Type of Procedure Debridement Debridement Debridement -Clinical Debridement Subcutaneous Subcutaneous Subcutaneous -Tissue Removed Subcutaneous Subcutaneous Subcutaneous -Post Debridement (cm) - Length 1.8 1.5 1.4 -Post Debridement (cm) - Width 1.8 1.4 1.2 -Post Debridement (cm) - Depth 0.2 0.1 0.1 -Total Square (Post) (cm) 3.24 2.10 1.68 -Area of Debridement (cm) - Length 1.8 1.5 1.4 -Area of Debridement (cm) - Width 1.8 1.4 1.2 -Total Square (Area) (cm) 3.24 2.10 1.68 -Tunneling No No No -Undermining/Tunneling No No No -Circular Undermining No No No -Wound/Ulcer Outcome Not Healed Not Healed Not Healed -Ulcer Cleansing Rinsed/ Rinsed/ Rinsed/ Irrigated with Irrigated with Irrigated with Saline Saline Saline -Foul Odor after Cleansing No No No -Bioengineered Tissue Yes Yes Yes -Type of Bioengineered Tissue Epifix 18mm Epifix 18mm Epifix 18mm Disc Disc Disc -Expiration Date 08/02/28 08/02/28 08/02/28 -Product Lot Number [id number] -Percent Used 100 100 100 -Lot number of Saline Used [id number] -Bleeding Controlled with Pressure Pressure Pressure -Treatment Response Procedure Procedure Procedure Tolerated Well Tolerated Well Tolerated Well -Offloading Yes No Yes -Type of Offloading Surgical Shoe Surgical Shoe -Assistive Device(s) -Debridement - Subq, 1st 20sq cm No No No -Apply Skin Sub - 1st 25 sq cm - Feet 1 1 1 -Epifix 18mm Disc 3 3 3 Pain Scale: 0-10 Numeric Is Patient Pain Free? Yes Yes Yes 02/24/24 03/03/24 11:11 10:09 Wound Center Nurse 2 #10 left hallux -Time 11:12 10:11 -Correct Patient Yes Yes -Correct Side, Site, Position Yes Yes -Correct Procedure Yes Yes -Procedure Performed Yes Yes -Type of Procedure Debridement Debridement -Clinical Debridement Subcutaneous Subcutaneous -Tissue Removed Subcutaneous Subcutaneous -Post Debridement (cm) - Length 1.0 1.2 -Post Debridement (cm) - Width 1.3 1.1 -Post Debridement (cm) - Depth 0.1 0.1 -Total Square (Post) (cm) 1.30 1.32 -Area of Debridement (cm) - Length 1.0 1.2 -Area of Debridement (cm) - Width 1.3 1.1 -Total Square (Area) (cm) 1.30 1.32 -Tunneling No No -Undermining/Tunneling No No -Circular Undermining No No -Wound/Ulcer Outcome Not Healed Not Healed -Ulcer Cleansing Rinsed/ Rinsed/ Irrigated with Irrigated with Saline Saline -Foul Odor after Cleansing No No -Bioengineered Tissue Yes Yes -Type of Bioengineered Tissue Epifix 18mm Epifix 18mm Disc Disc -Expiration Date 09/01/28 10/02/28 -Product Lot Number [id number] -Percent Used 100 100 -Lot number of Saline Used [id number] -Bleeding Controlled with Pressure Pressure -Treatment Response Procedure Procedure Tolerated Well Tolerated Well -Offloading Yes -Type of Offloading Surgical Shoe -Assistive Device(s) Wheelchair -Debridement - Subq, 1st 20sq cm No No -Apply Skin Sub - 1st 25 sq cm - Feet 1 1 -Epifix 18mm Disc 3 3 Pain Scale: 0-10 Numeric Is Patient Pain Free? Yes Yes WC - Nurse 3 - General Ulcer D/C NN Start: 02/03/24 11:35 Freq: Status: Active Protocol: Activity Type Activity Date Activity User E-sign Co-sign Detail Recorded Client Recorded Date Recorded By Document 02/10/24 10:24 KW [id number] 02/10/24 10:25 KW Document 02/17/24 11:06 RB [id number] 02/17/24 11:07 RB Edit Result 02/17/24 11:06 RB (1) [id number] 02/17/24 11:09 RB Document 02/24/24 11:31 BMF [id number] 02/24/24 11:31 BMF Document 03/03/24 10:19 GM [id number] 03/03/24 10:20 GM (1) #10 left hallux - Mepilex Border 1 => 2 02/10/24 02/17/24 02/24/24 10:24 11:06 11:31 Wound Care Center Nurse 3 #10 left hallux -Ulcer Cleansing -Foul Odor after Cleansing -Primary Dressing Applied Mepilex Border Mepilex Border Mepilex Border -Other Dressing epifix -Mepilex Border 1 2 1 -Wound Comment(s) cotton liner for sock abd surgical shoe Left -Lotion applied to leg before compression wrap -Compression Wrap Evangelist Wrap -Tubular Bandage Single Layer -Size of Tubigrip Used Size D -Size D ($) 1 -Other D tubigrip Treatment Response Procedure Procedure Tolerated Well Tolerated Well Pain Scale: 0-10 Numeric Is Patient Pain Free? Yes Yes Yes WC - Visit Discharge Discharge Condition Stable Stable Ambulatory Status Wheelchair Wheelchair Transportation Private Auto Private Auto Medication Reconcilliation completed & No provided to patient/care provider Clinical Summary of Care Provided Yes 03/03/24 10:19 Wound Care Center Nurse 3 #10 left hallux -Ulcer Cleansing Not Cleansed -Foul Odor after Cleansing No -Primary Dressing Applied Mepilex Border -Other Dressing -Mepilex Border 1 -Wound Comment(s) Left -Lotion applied to leg before No compression wrap -Compression Wrap -Tubular Bandage Single Layer -Size of Tubigrip Used Size D -Size D ($) 1 -Other Treatment Response Pain Scale: 0-10 Numeric Is Patient Pain Free? Yes WC - Visit Discharge Discharge Condition Stable Ambulatory Status Wheelchair Transportation Private Auto Medication Reconcilliation completed & provided to patient/care provider Clinical Summary of Care Provided Assessment/Plan Assessment/Plan (1) Non-pressure chronic ulcer of other part of left foot with fat layer exposed: CODE(S): L97.522 - Non-pressure chronic ulcer of other part of left foot with fat layer exposed (2) Other specified peripheral vascular diseases: CODE(S): I73.89 - Other specified peripheral vascular diseases PLAN: Plan Debridement done as documented above, procedure was well-tolerated. 9th application of EpiFix done using 100% of product. Moistened with saline, covered with wound veil and secured with Steri-Strips. She was advised to leave dressing in place for a week, may change outer dressing if wet. Continue other chronic wound care as previously discussed. Follow-up with Dr. Mota in 1 week or sooner if needed. Her questions were answered and she was advised to call the wound center if she has any further questions or concerns, she voiced un derstanding. This note was generated with [employer] dictation software. It may contain incorrect words, spelling, and punctuation that were not noted in checking the note before signing.
--- NOTE | 2024-03-07 11:41 | WC ---
PHOTO 03/03/24 LEFT HALLUX
== END 2024-03-03 23:59 | disposition home or self-care (01) ==
LOC: WC 09:30
PROVIDERS: PCP Family Medicine; Referring Provider Family Medicine; Visit Provider Podiatrist Foot & Ankle Surgery
DX: L97.522 Non-pressure chronic ulcer of other part of left foot with fat layer exposed (principal); I73.89 Other specified peripheral vascular diseases
CPT/HCPCS: 15275; Q4186

== ENCOUNTER 2024-03-30 11:00 | Outpatient (RCR) | payer MEDICARE, OTHER, SELFPAY ==
[2024-03-04 00:23] VITALS: BP 188/66; PULSE 68; RESP 16; TEMP 35.9; BMI 16.9
[2024-03-10 09:27] VITALS: BP 102/48; PULSE 69; RESP 16; TEMP 35.8; BMI 16.9
--- NOTE | 2024-03-10 11:18 | PCM.WC.PN ---
History of Present Illness Date of Service: 03/10/24 Chief Complaint: Left foot ulcer History of Wound: Ms Perales is a 73-year-old female seen at the wound care center today for follow-up evaluation of a coccyx wounds it has been going on for over 1 year they have been using all sorts of different products but is only been seen by the home health care nurse and getting dressing changes twice a week. At this point it superficial and open stage II so we will try using some Fibracol on that area. 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 Patient states that the wounds on her right ischium is from scooting and friction and has been constant going on and off for 20 years it is closed at this time and flushing color she says it was she could get her finger inside the wound at 1 time but is healed now the left hip trochanter is scabbed but it is healed it is not open and we will pad and protect both these areas for now and then my suggestion is were going to order some DuoDERM film patches to put over them to keep them from breaking open. Progress of Wound: Also a courtesy visit for Dr. Mota. Had her ninth application of EpiFix last week. Some improvement noted today. No new concerns reported. Objective Data Objective Data Vital Signs: Vital Signs Temp Pulse Resp BP O2 Del Method 96.5 F L 69 16 102/48 L Room Air 03/10/24 09:27 03/10/24 09:27 03/10/24 09:27 03/10/24 09:27 03/10/24 09:27 Oxygen Delivery Method Room Air Weight: 89 lb 6.4 oz Body Mass Index (BMI) 16.9 Charges/Coding Procedures Integumentary 150xxx-152xx: [id number] Skin sub graft trnk/arm/leg Physical Exam Const alert, oriented x3 and no apparent distress General Appearance: cooperative and well kempt HEENT normocephalic, head/scalp atraumatic and hearing grossly normal bilaterally Eyes EOMs intact bilaterally Neck full ROM and supple Resp normal respiratory effort Effort and Inspection: able to speak in complete sentences Skin Wounds: wounds noted size Size: See clinical note, bed granulating well, margins well approximated, no odor and open Neuro oriented x3 and CN's II-XII intact bilaterally Psych mental status grossly normal, thought process normal, cooperative and affect normal Debridement Note Debridement Note Wound debrided: Left Foot Type of Debridement: Excisional debridement Anesthesia Used: 4% Lidocaine Solution Depth: Down to and including healthy tissue and in the subcutaneous layer Percentage of wound debrided: 100 Instrument Used: 5mm curette Tissue Removed: Devitalized tissue Severity: Fat Layer Exposed Amount of bleeding with debridement: Mild Bleeding Controlled with: Pressure Patient tolerated procedure: Patient tolerated procedure well Post-Debridement Measurements and Additional Note: Post-Debridement Measurements/Treatment - Nurse 1 - General Ulcer Assessment Start: 03/10/24 09:27 Freq: Status: Active Protocol: JOSEPHINE Activity Type Activity Date Activity User E-sign Co-sign Detail Recorded Client Recorded Date Recorded By Document 03/10/24 09:27 ESTHER [id number] 03/10/24 09:37 KW 03/10/24 09:27 WC - Today's Visit Information Type of service Follow-up Visit (Physician/SYSTEMS SOFTWARE DEVELOPER ) Arrival Mode Wheelchair Patient Identification Verified (Name & Yes ) Height and Weight Body Mass Index (BMI) 16.9 BMI Classification Underweight Vital Signs Temperature (97.8 F-99.1 F) 96.5 F L Temperature Source Temporal Pulse Rate (60-100) 69 Pulse Location Monitor Respiratory Rate (12-18) 16 Respiratory rate source Observation Oxygen Delivery Method Room Air Blood Pressure (90/60-120/80) 102/48 L Blood Pressure Mean (mm Hg) 66 Source Monitor Position Sitting Blood Pressure Location Right Arm History Since Last Visit- (Skip if this is Patient's initial visit) Have you changed medications since your No last visit? Any new allergies or adverse reactions No Had a fall/change in ADL's that may No increase risk of falls Signs or symptoms of abuse and/or No neglect since last visit Have you been in the hospital since your No last visit? Has dressing in place as prescribed Yes Has compression in place as prescribed N/A Has offloadiing in place as prescribed Yes Experienced any changes in pain level or No management Left Footwear Surgical Shoe with pressure relief insole Right Footwear Regular Shoe Pain Scale: 0-10 Numeric Is Patient Pain Free? Yes MARY Calderón Nurse 1 - General Ulcer Measurement Start: 03/10/24 09:27 Freq: Status: Active Protocol: Activity Type Activity Date Activity User E-sign Co-sign Detail Recorded Client Recorded Date Recorded By Document 03/10/24 09:27 KW [id number] 03/10/24 09:37 03/10/24 09:27 Wound Center Nurse 1 #10 left hallux -Current Size (cm) - Length 1 -Current Size (cm) - Width 1.1 -Current Size (cm) - Depth 0.1 -Total Square Cm 1.1 -Date of Last Picture (Recall this 03/10/24 field) -Exudate Amt Small -Exudate Type Serosanguineous -Wound Margin Distinct, Outline Attached -Granulation Amt Large (67-100%) -Granulation Quality Red -Texture (Leyla-wound Skin Appearance) Assessed -Moisture (Leyla-wound Skin Appearance) Assessed -Color (Leyla-wound Skin Appearance) Assessed -Temperature (Leyla-wound Skin No Abnormality Appearance) (Pt Warm) -Tenderness on Palpation (Leyla-wound No Skin Appearance) -Ulcer Cleansing Soap and Water -Foul Odor after Cleansing No WC - Nurse 2 - General Ulcer CM Notes Start: 03/10/24 09:27 Freq: Status: Active Protocol: Activity Type Activity Date Activity User E-sign Co-sign Detail Recorded Client Recorded Date Recorded By Document 03/10/24 10:09 [id number] 03/10/24 10:12 03/10/24 10:09 Wound Center Nurse 2 -Time 10:09 -Correct Patient Yes -Correct Side, Site, Position Yes -Correct Procedure Yes -Procedure Performed Yes -Type of Procedure Debridement -Clinical Debridement Subcutaneous -Tissue Removed Subcutaneous -Post Debridement (cm) - Length 0.7 -Post Debridement (cm) - Width 1.1 -Post Debridement (cm) - Depth 0.1 -Total Square (Post) (cm) 0.77 -Area of Debridement (cm) - Length 0.7 -Area of Debridement (cm) - Width 1.1 -Total Square (Area) (cm) 0.77 -Tunneling No -Undermining/Tunneling No -Circular Undermining No -Wound/Ulcer Outcome Not Healed -Ulcer Cleansing Rinsed/ Irrigated with Saline -Foul Odor after Cleansing No -Bioengineered Tissue Yes -Type of Bioengineered Tissue Epifix 18mm Disc -Expiration Date 10/02/28 -Product Lot Number [id number] -Percent Used 100 -Lot number of Saline Used [id number] -Bleeding Controlled with Pressure -Treatment Response Procedure Tolerated Well -Assistive Device(s) Wheelchair -Pressure Reduction Wheelchair cushion -Debridement - Subq, 1st 20sq cm No Pain Scale: 0-10 Numeric Is Patient Pain Free? Yes - Nurse 3 - General Ulcer D/C NN Start: 03/10/24 09:27 Freq: Status: Active Protocol: Activity Type Activity Date Activity User E-sign Co-sign Detail Recorded Client Recorded Date Recorded By Document 03/10/24 10:15 [id number] 03/10/24 10:16 03/10/24 10:15 Wound Care Center Nurse 3 #10 left hallux -Ulcer Cleansing Not Cleansed -Foul Odor after Cleansing No -Primary Dressing Applied Mepilex Border -Mepilex Border 1 Pain Scale: 0-10 Numeric Is Patient Pain Free? Yes - Visit Discharge Discharge Condition Stable Ambulatory Status Wheelchair Transportation Private Auto Assessment/Plan Assessment/Plan (1) Non-pressure chronic ulcer of other part of left foot with fat layer exposed: CODE(S): L97.522 - Non-pressure chronic ulcer of other part of left foot with fat layer exposed (2) Other specified peripheral vascular diseases: CODE(S): I73.89 - Other specified peripheral vascular diseases PLAN: Plan Debridement done as documented above, procedure was well-tolerated. 10th application of EpiFix done using 100% of product. Moistened with saline, covered with wound veil and secured with Steri-Strips. She was advised to leave dressing in place for 2 weeks, may change outer dressing if wet. Continue other chronic wound care as previously discussed. Follow-up with Dr. Mota/ANNABELLE in 1 week or sooner if needed. Her questions were answered and she was advised to call the wound center if she has any further questions or concerns, she voiced understanding. This note was generated with [employer] dictation software. It may contain incorrect words, spelling, and punctuation that were not noted in checking the note before signing.
--- NOTE | 2024-03-14 09:12 | WC ---
PHOTO 03/10/24 LEFT HALLUX
[2024-03-23 10:49] VITALS: BP 122/76; PULSE 106; RESP 16; TEMP 36.2; BMI 16.9
--- NOTE | 2024-03-23 11:13 | PN.PCM_ITS ---
History of Present Illness Date of Service: 03/23/24 Chief Complaint: Left foot ulcer History of Wound: Ms Perales is a 73-year-old female seen at the wound care center today for follow-up evaluation of a coccyx wounds it has been going on for over 1 year they have been using all sorts of different products but is only been seen by the home health care nurse and getting dressing changes twice a week. At this point it superficial and open stage II so we will try using some Fibracol on that area. 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 Patient states that the wounds on her right ischium is from scooting and friction and has been constant going on and off for 20 years it is closed at this time and flushing color she says it was she could get her finger inside the wound at 1 time but is healed now the left hip trochanter is scabbed but it is healed it is not open and we will pad and protect both these areas for now and then my suggestion is were going to order some DuoDERM film patches to put over them to keep them from breaking open. Progress of Wound: Patient shows improvement in follow-up for the full-thickness wound to the left first metatarsophalangeal joint. Doing well. Subjective Subjective Ms. Perales is a 73-year-old female seeing the wound care center today for follow- up evaluation of left foot first metatarsophalangeal joint full-thickness ulceration. Patient has completed all 10 ambulance and graft substitutes. She expressed great improvement to her ulceration. She has left the dressing clean dry and intact until follow-up today. She denies any new onset of trauma or wounds. Denies constitutional symptoms. No other pedal complaints at this time. Objective Data Objective Data Vital Signs: Vital Signs Temp Pulse Resp BP O2 Del Method 97.1 F L 106 H 16 122/76 H Room Air 03/23/24 10:49 03/23/24 10:49 03/23/24 10:49 03/23/24 10:49 03/23/24 10:49 Oxygen Delivery Method Room Air Weight: 40.551 kg Body Mass Index (BMI) 16.9 Physical Exam Narrative Vascular: DP and PT pulses are faintly palpable to left lower extremity. CFT is delayed. Skin temperature gradient is warm to cool from proximal ankle to distal digit. No erythema or proximal streaking is appreciated. Neurological: Light touch absent. Protective sensation is absent. Dermatological: Full-thickness ulceration to the first metatarsal phalangeal joint dorsally measuring 1.1 x 0.9 x 0.1 cm. Wound base is granular nature. No drainage or sign of infection. Excisional debridement down to and including subcutaneous tissue with a number 5 mm dermal curette to the left foot ulceration at the level of the first metatarsal phalangeal joint without incident. Predebridement measurement was 0.8 x 0.7 x 0.1 cm. Postdebridement measurement is 1.1 x 0.9 x 0.1 cm. Musculoskeletal: Muscle strength is 0 out of 5 bilateral. No pain on palpation to the full-thickness wound. No pain with calf pressure. Debridement Note Debridement Note Debridement Free Text: Excisional debridement down to and including subcutaneous tissue with a number 5 mm dermal curette to the left foot ulceration at the level of the first metatarsal phalangeal joint without incident. Predebridement measurement was 0.8 x 0.7 x 0.1 cm. Postdebridement measurement is 1.1 x 0.9 x 0.1 cm. Post-Debridement Measurements and Additional Note: Post-Debridement Measurements/Treatment - Nurse 1 - General Ulcer Assessment Start: 03/10/24 09:27 Freq: Status: Active Protocol: JOSEPHINE Activity Type Activity Date Activity User E-sign Co-sign Detail Recorded Client Recorded Date Recorded By Document 03/10/24 09:27 [id number] 03/10/24 09:37 Document 03/23/24 10:49 [id number] 03/23/24 10:51 03/10/24 03/23/24 09:27 10:49 - Today's Visit Information Type of service Follow-up Visit Follow-up Visit (Physician/ACCOUNTS RECEIVABLE BOOKKEEPER (Physician/ACCOUNTS RECEIVABLE BOOKKEEPER ) ) Arrival Mode Wheelchair Wheelchair Transfer Assistance None Patient Identification Verified (Name & Yes Yes ) Height and Weight Body Mass Index (BMI) 16.9 16.9 BMI Classification Underweight Underweight Vital Signs Temperature (97.8 F-99.1 F) 96.5 F L 97.1 F L Temperature Source Temporal Temporal Pulse Rate (60-100) 69 106 H Pulse Location Monitor Monitor Respiratory Rate (12-18) 16 16 Respiratory rate source Observation Observation Oxygen Delivery Method Room Air Room Air Blood Pressure (90/60-120/80) 102/48 L 122/76 H Blood Pressure Mean (mm Hg) 66 91 Source Monitor Monitor Position Sitting Sitting Blood Pressure Location Right Arm Left Arm History Since Last Visit- (Skip if this is Patient's initial visit) Have you changed medications since your No No last visit? Any new allergies or adverse reactions No No Had a fall/change in ADL's that may No No increase risk of falls Signs or symptoms of abuse and/or No No neglect since last visit Have you been in the hospital since your No No last visit? Has dressing in place as prescribed Yes Yes Has compression in place as prescribed N/A N/A Has offloadiing in place as prescribed Yes N/A Experienced any changes in pain level or No No management Left Footwear Surgical Shoe Regular Shoe with pressure relief insole Right Footwear Regular Shoe Regular Shoe Pain Scale: 0-10 Numeric Is Patient Pain Free? Yes Yes WC - Nurse 1 - General Ulcer Measurement Start: 03/10/24 09:27 Freq: Status: Active Protocol: Activity Type Activity Date Activity User E-sign Co-sign Detail Recorded Client Recorded Date Recorded By Document 03/10/24 09:27 KW [id number] 03/10/24 09:37 KW Document 03/23/24 10:49 [id number] 03/23/24 10:51 03/10/24 03/23/24 09:27 10:49 Wound Center Nurse 1 #10 left hallux -Current Size (cm) - Length 1 1.0 -Current Size (cm) - Width 1.1 0.8 -Current Size (cm) - Depth 0.1 0.1 -Total Square Cm 1.1 0.80 -Date of Last Picture (Recall this 03/10/24 field) -Photo Taken No -Epithelialization None Present -Tunneling No -Undermining/Tunneling No -Circular Undermining No -Exudate Amt Small Small -Exudate Type Serosanguineous Yellow/Green -Wound Margin Distinct, Distinct, Outline Outline Attached Attached -Granulation Amt Large (67-100%) Large (67-100%) -Granulation Quality Red Red -Slough/Fibrin No -Texture (Leyla-wound Skin Appearance) Assessed Assessed -Moisture (Leyla-wound Skin Appearance) Assessed -Color (Leyla-wound Skin Appearance) Assessed Assessed -Temperature (Leyla-wound Skin No Abnormality No Abnormality Appearance) (Pt Warm) (Pt Warm) -Tenderness on Palpation (Leyla-wound No No Skin Appearance) -Ulcer Cleansing Soap and Water Soap and Water -Foul Odor after Cleansing No No WC - Nurse 2 - General Ulcer CM Notes Start: 03/10/24 09:27 Freq: Status: Active Protocol: Activity Type Activity Date Activity User E-sign Co-sign Detail Recorded Client Recorded Date Recorded By Document 03/10/24 10:09 GM [id number] 03/10/24 10:12 GM Edit Result 03/10/24 10:09 GM (1) [id number] 03/10/24 15:41 GM Document 03/23/24 10:55 JF [id number] 03/23/24 10:59 JF (1) #10 left hallux - Apply Skin Sub - 1st 25 sq cm - Feet => 1 - Epifix 18mm Disc => 3 03/10/24 03/23/24 10:09 10:55 Wound Center Nurse 2 #10 left hallux -Time 10:09 10:55 -Correct Patient Yes Yes -Correct Side, Site, Position Yes Yes -Correct Procedure Yes Yes -Procedure Performed Yes Yes -Type of Procedure Debridement Debridement -Clinical Debridement Subcutaneous Subcutaneous -Tissue Removed Subcutaneous Subcutaneous -Post Debridement (cm) - Length 0.7 1.1 -Post Debridement (cm) - Width 1.1 0.9 -Post Debridement (cm) - Depth 0.1 0.1 -Total Square (Post) (cm) 0.77 0.99 -Area of Debridement (cm) - Length 0.7 1.1 -Area of Debridement (cm) - Width 1.1 0.9 -Total Square (Area) (cm) 0.77 0.99 -Tunneling No No -Undermining/Tunneling No No -Circular Undermining No No -Wound/Ulcer Outcome Not Healed Not Healed -Ulcer Cleansing Rinsed/ Rinsed/ Irrigated with Irrigated with Saline Saline -Foul Odor after Cleansing No No -Bioengineered Tissue Yes No -Type of Bioengineered Tissue Epifix 18mm Disc -Expiration Date 10/02/28 -Product Lot Number [id number] -Percent Used 100 -Lot number of Saline Used [id number] -Bleeding Controlled with Pressure Pressure -Treatment Response Procedure Procedure Tolerated Well Tolerated Well -Offloading No -Assistive Device(s) Wheelchair -Pressure Reduction Wheelchair cushion -Debridement - Subq, 1st 20sq cm No Yes -Apply Skin Sub - 1st 25 sq cm - Feet 1 -Epifix 18mm Disc 3 Pain Scale: 0-10 Numeric Is Patient Pain Free? Yes Yes - Nurse 3 - General Ulcer D/C NN Start: 03/10/24 09:27 Freq: Status: Active Protocol: Activity Type Activity Date Activity User E-sign Co-sign Detail Recorded Client Recorded Date Recorded By Document 03/10/24 10:15 [id number] 03/10/24 10:16 Document 03/23/24 11:05 [id number] 03/23/24 11:06 03/10/24 03/23/24 10:15 11:05 Wound Care Center Nurse 3 #10 left hallux -Ulcer Cleansing Not Cleansed Not Cleansed -Foul Odor after Cleansing No No -Primary Dressing Applied Mepilex Border Mepilex Border, Promogran Amisha Matter -Mepilex Border 1 1 -Promogran Amisha Matter 1 Pain Scale: 0-10 Numeric Is Patient Pain Free? Yes Yes - Visit Discharge Discharge Condition Stable Stable Ambulatory Status Wheelchair Wheelchair Transportation Private Auto Private Auto Assessment/Plan Assessment/Plan (1) Non-pressure chronic ulcer of other part of left foot with fat layer exposed: CODE(S): L97.522 - Non-pressure chronic ulcer of other part of left foot with fat layer exposed PLAN: Patient was examined and evaluated. All findings were discussed with the patient. All questions were answered to the patient's satisfaction. Excisional debridement down to and including subcutaneous tissue with a number 5 mm dermal curette to the left foot ulceration at the level of the first metatarsal phalangeal joint without incident. Predebridement measurement was 0.8 x 0.7 x 0.1 cm. Postdebridement measurement is 1.1 x 0.9 x 0.1 cm. Left lower extremities were cleaned and patted dry. Moist Amisha was applied to the full-thickness wound. Patient will do every other day dressing changes with him home health care. Educated the patient to leave the Amisha clean dry and intact. She is allowed to wash her wound with every dressing change with warm water and antibacterial soap and dry well. Apply lotion on the skin except the ulceration. Continue with wound care dressing changes. Follow-up at the wound care center with Dr. Mota in 1 week.
[2024-03-30 11:14] VITALS: BP 105/63; PULSE 113; RESP 16; TEMP 35.8; BMI 16.9
--- NOTE | 2024-03-30 11:47 | PCM.WC.PN ---
History of Present Illness Date of Service: 03/30/24 Chief Complaint: Left foot ulcer History of Wound: Ms Perales is a 73-year-old female seen at the wound care center today for follow-up evaluation of a coccyx wounds it has been going on for over 1 year they have been using all sorts of different products but is only been seen by the home health care nurse and getting dressing changes twice a week. At this point it superficial and open stage II so we will try using some Fibracol on that area. 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 Patient states that the wounds on her right ischium is from scooting and friction and has been constant going on and off for 20 years it is closed at this time and flushing color she says it was she could get her finger inside the wound at 1 time but is healed now the left hip trochanter is scabbed but it is healed it is not open and we will pad and protect both these areas for now and then my suggestion is were going to order some DuoDERM film patches to put over them to keep them from breaking open. Progress of Wound: Patient shows improvement in follow-up for the full-thickness wound to the left first metatarsophalangeal joint. Doing well. Subjective Subjective Ms. Perales is a 73-year-old female presented wound care center today for follow-up evaluation of full-thickness wound to the left first metatarsophalangeal joint. She has been doing dressing changes at home as instructed. She continues to elevate when at rest. Patient does reside in wheelchair majority of the day. She denies any trauma. Denies constitutional symptoms. No other pedal complaints at this time. Objective Data Objective Data Vital Signs: Vital Signs Temp Pulse Resp BP O2 Del Method 96.5 F L 113 H 16 105/63 Room Air 03/30/24 11:14 03/30/24 11:14 03/30/24 11:14 03/30/24 11:14 03/23/24 10:49 Oxygen Delivery Method Room Air Weight: 40.551 kg Body Mass Index (BMI) 16.9 Physical Exam Narrative Vascular: DP and PT pulses are faintly palpable to left lower extremity. CFT is delayed. Skin temperature gradient is warm to cool from proximal ankle to distal digit. No erythema or proximal streaking is appreciated. Neurological: Light touch absent. Protective sensation is absent. Dermatological: Full-thickness ulceration to the first metatarsal phalangeal joint dorsally measuring 0.9 x 1.0 x 0.1 cm. Wound base is granular nature. No drainage or sign of infection. Excisional debridement down to and including subcutaneous tissue with a number 5 mm dermal curette to the left foot ulceration at the level of the first metatarsal phalangeal joint without incident. Predebridement measurement was 0.8 x 0.9 x 0.1 cm. Postdebridement measurement is 0.9 x 1.0 x 0.1 cm. Musculoskeletal: Muscle strength is 0 out of 5 bilateral. No pain on palpation to the full-thickness wound. No pain with calf pressure. Debridement Note Debridement Note Debridement Free Text: Excisional debridement down to and including subcutaneous tissue with a number 5 mm dermal curette to the left foot ulceration at the level of the first metatarsal phalangeal joint without incident. Predebridement measurement was 0.8 x 0.9 x 0.1 cm. Postdebridement measurement is 0.9 x 1.0 x 0.1 cm. Post-Debridement Measurements and Additional Note: Post-Debridement Measurements/Treatment - Nurse 1 - General Ulcer Assessment Start: 03/10/24 09:27 Freq: Status: Active Protocol: JOSEPHINE Activity Type Activity Date Activity User E-sign Co-sign Detail Recorded Client Recorded Date Recorded By Document 03/10/24 09:27 KW [id number] 03/10/24 09:37 KW Document 03/23/24 10:49 [id number] 03/23/24 10:51 Document 03/30/24 11:14 [id number] 03/30/24 11:19 03/10/24 03/23/24 03/30/24 09:27 10:49 11:14 - Today's Visit Information Type of service Follow-up Visit Follow-up Visit Follow-up Visit (Physician/LABORATORY ASSISTANT (Physician/LABORATORY ASSISTANT (Physician/LABORATORY ASSISTANT ) ) ) Arrival Mode Wheelchair Wheelchair Wheelchair Transfer Assistance None Patient Identification Verified (Name & Yes Yes Yes ) Patient Requires Transmission-Based No Precautions Height and Weight Body Mass Index (BMI) 16.9 16.9 16.9 BMI Classification Underweight Underweight Underweight Vital Signs Temperature (97.8 F-99.1 F) 96.5 F L 97.1 F L 96.5 F L Temperature Source Temporal Temporal Temporal Pulse Rate (60-100) 69 106 H 113 H Pulse Location Monitor Monitor Monitor Respiratory Rate (12-18) 16 16 16 Respiratory rate source Observation Observation Observation Oxygen Delivery Method Room Air Room Air Blood Pressure (90/60-120/80) 102/48 L 122/76 H 105/63 Blood Pressure Mean (mm Hg) 66 91 77 Source Monitor Monitor Monitor Position Sitting Sitting Sitting Blood Pressure Location Right Arm Left Arm Right Arm History Since Last Visit- (Skip if this is Patient's initial visit) Have you changed medications since your No No No last visit? Any new allergies or adverse reactions No No No Had a fall/change in ADL's that may No No No increase risk of falls Signs or symptoms of abuse and/or No No No neglect since last visit Have you been in the hospital since your No No No last visit? Has dressing in place as prescribed Yes Yes Yes Has compression in place as prescribed N/A N/A N/A Has offloadiing in place as prescribed Yes N/A N/A Experienced any changes in pain level or No No No management Left Footwear Surgical Shoe Regular Shoe Regular Shoe with pressure relief insole Right Footwear Regular Shoe Regular Shoe Regular Shoe Pain Scale: 0-10 Numeric Is Patient Pain Free? Yes Yes Yes WC - Nurse 1 - General Ulcer Measurement Start: 03/10/24 09:27 Freq: Status: Active Protocol: Activity Type Activity Date Activity User E-sign Co-sign Detail Recorded Client Recorded Date Recorded By Document 03/10/24 09:27 KW [id number] 03/10/24 09:37 KW Document 03/23/24 10:49 [id number] 03/23/24 10:51 Document 03/30/24 11:14 JF [id number] 03/30/24 11:19 JF 03/10/24 03/23/24 03/30/24 09:27 10:49 11:14 Wound Center Nurse 1 #10 left hallux -Combined with other wound No -Current Size (cm) - Length 1 1.0 1.0 -Current Size (cm) - Width 1.1 0.8 0.9 -Current Size (cm) - Depth 0.1 0.1 0.2 -Total Square Cm 1.1 0.80 0.90 -Date of Last Picture (Recall this 03/10/24 field) -Photo Taken No Yes -Epithelialization None Present Medium 34-66% -Tunneling No No -Undermining/Tunneling No No -Circular Undermining No No -Exudate Amt Small Small None Present -Exudate Type Serosanguineous Yellow/Green -Wound Margin Distinct, Distinct, Flat & Intact Outline Outline Attached Attached -Granulation Amt Large (67-100%) Large (67-100%) Medium (34-66%) -Granulation Quality Red Red [place] -Slough/Fibrin No Yes -Necrosis Amt Small (1-33%) -Structure Exposed N/A -Texture (Leyla-wound Skin Appearance) Assessed Assessed Assessed, Scarring -Moisture (Leyla-wound Skin Appearance) Assessed Assessed,Dry/ Scaly -Color (Leyla-wound Skin Appearance) Assessed Assessed Assessed -Temperature (Leyla-wound Skin No Abnormality No Abnormality No Abnormality Appearance) (Pt Warm) (Pt Warm) (Pt Warm) -Tenderness on Palpation (Leyla-wound No No No Skin Appearance) -Ulcer Cleansing Soap and Water Soap and Water Rinsed/ Irrigated with Saline -Foul Odor after Cleansing No No No -Anesthetic Used 5% Lidocaine Gel Lower Limb Edema Present NA WC - Nurse 2 - General Ulcer CM Notes Start: 03/10/24 09:27 Freq: Status: Active Protocol: Activity Type Activity Date Activity User E-sign Co-sign Detail Recorded Client Recorded Date Recorded By Document 03/10/24 10:09 [id number] 03/10/24 10:12 Edit Result 03/10/24 10:09 GM (1) [id number] 03/10/24 15:41 Document 03/23/24 10:55 [id number] 03/23/24 10:59 Document 03/30/24 11:23 [id number] 03/30/24 11:26 (1) #10 left hallux - Apply Skin Sub - 1st 25 sq cm - Feet => 1 - Epifix 18mm Disc => 3 03/10/24 03/23/24 03/30/24 10:09 10:55 11:23 Wound Center Nurse 2 #10 left hallux -Time 10:09 10:55 11:25 -Correct Patient Yes Yes Yes -Correct Side, Site, Position Yes Yes Yes -Correct Procedure Yes Yes Yes -Procedure Performed Yes Yes Yes -Type of Procedure Debridement Debridement Debridement -Clinical Debridement Subcutaneous Subcutaneous Subcutaneous -Tissue Removed Subcutaneous Subcutaneous Subcutaneous -Post Debridement (cm) - Length 0.7 1.1 0.9 -Post Debridement (cm) - Width 1.1 0.9 1 -Post Debridement (cm) - Depth 0.1 0.1 0.1 -Total Square (Post) (cm) 0.77 0.99 0.9 -Area of Debridement (cm) - Length 0.7 1.1 0.9 -Area of Debridement (cm) - Width 1.1 0.9 1.0 -Total Square (Area) (cm) 0.77 0.99 0.90 -Tunneling No No No -Undermining/Tunneling No No No -Circular Undermining No No No -Wound/Ulcer Outcome Not Healed Not Healed Not Healed -Ulcer Cleansing Rinsed/ Rinsed/ Rinsed/ Irrigated with Irrigated with Irrigated with Saline Saline Saline -Foul Odor after Cleansing No No No -Bioengineered Tissue Yes No No -Type of Bioengineered Tissue Epifix 18mm Disc -Expiration Date 10/02/28 -Product Lot Number [id number] -Percent Used 100 -Lot number of Saline Used [id number] -Bleeding Controlled with Pressure Pressure Pressure -Treatment Response Procedure Procedure Procedure Tolerated Well Tolerated Well Tolerated Well -Offloading No No -Assistive Device(s) Wheelchair -Pressure Reduction Wheelchair cushion -Debridement - Subq, 1st 20sq cm No Yes Yes -Apply Skin Sub - 1st 25 sq cm - Feet 1 -Epifix 18mm Disc 3 Pain Scale: 0-10 Numeric Is Patient Pain Free? Yes Yes Yes - Nurse 3 - General Ulcer D/C NN Start: 03/10/24 09:27 Freq: Status: Active Protocol: Activity Type Activity Date Activity User E-sign Co-sign Detail Recorded Client Recorded Date Recorded By Document 03/10/24 10:15 [id number] 03/10/24 10:16 Document 03/23/24 11:05 [id number] 03/23/24 11:06 GM Document 03/30/24 11:42 RB [id number] 03/30/24 11:43 RB 03/10/24 03/23/24 03/30/24 10:15 11:05 11:42 Wound Care Center Nurse 3 #10 left hallux -Ulcer Cleansing Not Cleansed Not Cleansed Rinsed/ Irrigated with Saline -Foul Odor after Cleansing No No -Primary Dressing Applied Mepilex Border Mepilex Border, Mepilex Border, Promogran Promogran Amisha Matter Amisha Matter -Mepilex Border 1 1 1 -Promogran Amisha Matter 1 1 Left -Tubular Bandage Single Layer -Size of Tubigrip Used Size C -Size C ($) 1 Pain Scale: 0-10 Numeric Is Patient Pain Free? Yes Yes Yes WC - Visit Discharge Discharge Condition Stable Stable Stable Ambulatory Status Wheelchair Wheelchair Wheelchair Transportation Private Auto Private Auto Private Auto Medication Reconcilliation completed & No provided to patient/care provider Clinical Summary of Care Provided Yes Assessment/Plan Assessment/Plan (1) Non-pressure chronic ulcer of other part of left foot with fat layer exposed: CODE(S): L97.522 - Non-pressure chronic ulcer of other part of left foot with fat layer exposed PLAN: Patient was examined and evaluated. All findings were discussed with the patient. All questions were answered to the patient's satisfaction. Excisional debridement down to and including subcutaneous tissue with a number 5 mm dermal curette to the left foot ulceration at the level of the first metatarsal phalangeal joint without incident. Predebridement measurement was 0.8 x 0.9 x 0.1 cm. Postdebridement measurement is 0.9 x 1.0 x 0.1 cm. Left lower extremities were cleaned and patted dry. Moist Amisha was applied to the full-thickness wound. Patient will do every other day dressing changes with him home health care. Educated the patient to leave the Amisha clean dry and intact. She is allowed to wash her wound with every dressing change with warm water and antibacterial soap and dry well. Apply lotion on the skin except the ulceration. Continue with wound care dressing changes. Follow-up at the wound care center with Dr. Mota in 2 week.
--- NOTE | 2024-04-05 15:16 | WC ---
PHOTO 03/30/24 LEFT HALLUX
== END 2024-04-02 23:59 | disposition home or self-care (01) ==
LOC: WC 11:00
PROVIDERS: PCP Family Medicine; Referring Provider Family Medicine; Visit Provider Podiatrist Foot & Ankle Surgery
DX: L97.522 Non-pressure chronic ulcer of other part of left foot with fat layer exposed (principal); I73.89 Other specified peripheral vascular diseases
CPT/HCPCS: 11042; 15275; Q4186

== ENCOUNTER → 2024-03-30 | Outpatient (CLI) | payer MEDICARE, OTHER, SELFPAY ==
--- NOTE | 2024-03-30 11:53 | RAD_ITS ---
EXAM: XR BILATERAL HIPS WITH PELVIS WHEN PERFORMED, 2 VIEWS CLINICAL INDICATION: LEFT GROIN AND HIP PAIN TECHNIQUE: Frontal view of the bilateral hips with pelvis when performed. COMPARISON: CT abdomen and pelvis, 03/23/2024 FINDINGS: BONES/JOINTS: Degenerative changes in the lower lumbar spine and SI joints. Chronic right proximal femoral fracture with marked varus angulation. Dysmorphic appearance of the left femoral head and associated arthritic changes with acetabular dysplasia. No destructive or sclerotic lesions. Note that overlapping bowel shadows may however obscure fine detail. No widening of the pubic symphysis. SOFT TISSUES: No significant abnormality. No soft tissue swelling or gas. OTHER FINDINGS: Baclofen pump present. RAD/Hips B/L min 2 views w/ Pelvis IMPRESSION: Chronic right proximal femoral fracture with marked varus angulation. Dysmorphic appearance of the left femoral head and associated arthritic changes with acetabular dysplasia. Overall findings consistent with a nonambulatory patient. Electronically Signed: Bassem Michael DO at 22:20 EST ,
== END | disposition home or self-care (01) ==
LOC: RAD 11:51
PROVIDERS: PCP Family Medicine; Referring Provider Anesthesiology Pain Medicine; Visit Provider Anesthesiology Pain Medicine
DX: R10.2 Pelvic and perineal pain (principal); M25.552 Pain in left hip
CPT/HCPCS: 73521

== ENCOUNTER 2024-03-31 11:43 | Inpatient (IN) | payer MEDICARE, OTHER, SELFPAY ==
[2024-03-31] VITALS (11 sets, daily range): BP systolic 74–210; BP diastolic 56–118; PULSE 71–167; RESP 16–22; TEMP 36.4–36.8; O2SAT 95–100; BMI 17.9; BMI 19.0
--- NOTE | 2024-03-31 12:06 | RAD_ITS ---
INDICATION: Shortness of breath EXAMINATION/TECHNIQUE: X-RAY - XR Chest 1 View AP portable. 1:01 PM COMPARISON: Prior study dated: 04/21/2019 FINDINGS: LINES/DEVICES: None. LUNGS: No consolidation. No pneumothorax. MEDIASTINUM: Unremarkable. CARDIAC SILHOUETTE: Enlarged. BONES AND SOFT TISSUES: No acute abnormalities. RAD/Chest 1 View (Portable) IMPRESSION: No evidence of active intrathoracic disease. Electronically Signed: Keesha Cardoso MD at 13:39 EST ,
[2024-03-31 12:15] LABS: Absolute Lymphocyte Count 0.16 X10^3/uL (0.83-4.51); Absolute Neutrophil Count 9.9 X10^3/uL (2.0-7.7); Basophil# 0.01 X10^3/uL; Basophil% 0.1 % (0-1); Eosinophil# 0.35 X10^3/uL; Eosinophils% 3.1 % (0-5); Hematocrit 34.5 % (37-47); Hemoglobin 12.2 g/dL (12.0-15.0); Lymphocyte # 0.16 X10^3/ul (0.83-4.51); Lymphocyte % 1.4 % (19-41); Mean Corp Hgb Conc 35.4 g/dL (32-36); Mean Corpuscular Hgb 32.2 pg (27.0-32.0); Mean Platelet Vol. 11.3 fl (6.2-12.0); Monocyte# 0.53 X10^3/uL; Monocyte% 4.7 % (0-10); NRBC Flagged by Analyzer 0 % (0-5); Neutrophil # 9.88 X10^3/uL (2.7-7.7); Neutrophil % 87.5 % (47-70); POSITIVE DIFFERENTIAL YES; POSITIVE MORPHOLOGY YES; Platelet Count 177 K/mm3 (150-450); RBC Distribution Width CV 12.5 % (11.6-14.6); RBC Distribution Width SD 41.6 fl (35.1-43.9); Red Blood Count 3.79 M/mm3 (4.2-5.4); White Blood Count 11.3 K/mm3 (4.4-11.0)
[2024-03-31 12:25] LABS: International Normalized Ratio 1.3; Partial Thromboplast Time 41.6 Seconds (24.1-36.2); Prothrombin Time (Protime)PT. 16.4 SECONDS (11.7-14.9)
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
[2024-03-31 12:36] LABS: ALB/GLOB Ratio 0.8 RATIO (0.9-2.4); AST(SGOT) 18 U/L (15-37); Alanine Aminotransfer ALT/SGPT 11 U/L (13-56); Albumin, Serum 2.6 g/dL (3.2-5.0); Alkaline Phosphatase 102 U/L (45-117); Anion Gap 10 (5-15); BUN 34 mg/dL (7-18); BUN/Creat Ratio 42.5 RATIO (10-20); Calcium,Total 8.2 mg/dL (8.5-10.1); Chloride 97 mmol/L (98-107); EST Glomerular Filtration Rate 75 mL/min (>60); Est Glom Filt Rate - Afr Amer 90 mL/min (>60); Estimated Creatinine Clearance 43.24 ml/min; Globulin 3.3 g/dL (2.2-4.2); Glucose 97 mg/dL (74-106); Protein, Total 5.9 g/dL (6.4-8.2); Sodium Level 130 mmol/L (136-145); Troponin-I HS 27 pg/mL (3.0-54.0)
[2024-03-31 12:41] LABS: Differential Indicated SCAN CRITERIA MET
[2024-03-31 12:55] LABS: Mucous, Urine 0 SEEN /hpf (<or=2+); Red Blood Cells-Urine 0 SEEN /hpf (0-5); Squamous Epithelial Cells - UA 0 SEEN /hpf (5-10)
[2024-03-31 12:58] LABS: Color, Urine Yellow (Yellow); Glucose, Dipstick Normal (Normal); Ketone-Dipstick Negative (Negative); Leukocyte Esterase-Dipstick 100 /ul (Negative); Nitrite-Dipstick Negative (Negative); Occult Blood-Urine 10 /ul (Negative); Protein-Dipstick 30 mg/dl (Negative); Urine Clarity Sl. Cloudy (Clear); Urine Urobilinogen 1 mg/dl (Normal); Urine pH 6.5 (5.0 - 8.0)
[2024-03-31 13:00] LABS: BNP,B-Type NATRIURETIC PEPTIDE 1148.9 pg/mL (0-100)
[2024-03-31 13:00] LABS: Urine Bilirubin Dipstick 1 mg/dL (Negative)
[2024-03-31] MEDS: 0.9% Normal Saline (1000mL) 1,000 ML 999 ML IV ×2 (13:00→13:20)
[2024-03-31] MEDS: Adenosine 6 MG/2 ML Syringe 12 MG IV (13:00)
[2024-03-31] MEDS: Adenosine 6 MG/2 ML Syringe IV (13:00)
[2024-03-31 13:16] LABS: Bacteria 2+ /hpf (None Seen); White Blood Cells 0-5 SEEN /hpf (0-5)
[2024-03-31] MEDS: Ceftriaxone 2 GM in 0.9% Normal Saline (50mL MB+) 50 ML IV (13:19)
[2024-03-31] MEDS: Ondansetron 4 MG/2 ML Vial IV (13:19)
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
--- NOTE | 2024-03-31 14:29 | CT_ITS ---
EXAM: CT Abdomen And Pelvis W/ Contrast Injection HISTORY: Sepsis TECHNIQUE: Routine protocol CT abdomen pelvis. IV Contrast: IV 75mL [id number]-[id number] . Oral Contrast: without. Sagittal and coronal images were reconstructed. RADIATION DOSAGE (If Supplied By Facility): CTDIvol = ( 6.74 ) mGy, DLP = ( 338.37 ) mGycm Individualized dose optimization techniques were used for this CT. COMPARISON: CT abdomen pelvis 01/05/2024. LIMITATIONS: None. FINDINGS: LOWER CHEST: Dependent atelectasis in the lung bases. Small pericardial effusion. LIVER: Unremarkable. GALLBLADDER/BILE DUCTS: Gallbladder is distended. No calcified gallstones identified. Common bile duct and intrahepatic ducts are dilated, not significantly changed compared to prior. No calcified stone identified in the CBD. PANCREAS: Pancreatic duct is prominent. No adjacent stranding or collection. SPLEEN: Unremarkable. ADRENAL GLANDS: Unremarkable. KIDNEYS / URETERS: Unremarkable. BOWEL / MESENTERY: Surgical clips in the right lower abdomen. Rectal wall thickening with adjacent stranding. Large amount of stool throughout the remainder of the colon, especially the right colon. No bowel obstruction. APPENDIX: Not identified. PERITONEUM: No free air. No free fluid. VESSELS: Abdominal aorta is normal caliber. RETROPERITONEUM: Unremarkable. REPRODUCTIVE ORGANS: Unremarkable. BLADDER: Partially distended with Finch catheter in place. Small amount of air in the bladder presumably related to the catheter. ABDOMINAL WALL: Implanted device in the right lower anterior abdominal wall with electrode extending into the spinal canal. BONES: No acute abnormality. Markedly osteopenic. Chronic fracture/nonunion right femur. OTHER: None. CT/Abdomen/Pelvis W IV Cont ONLY IMPRESSION: 1. Rectal wall thickening with perirectal stranding consistent with acute proctitis or proctocolitis. 2. No bowel obstruction. Moderate colonic stool predominantly in the right colon. 3. Biliary dilatation, not significantly changed. Electronically Signed: Keesha Cardoso MD at 15:23 EST ,
[2024-03-31 15:23] LABS: Troponin-I HS 25 pg/mL (3.0-54.0)
[2024-03-31] MEDS: Piperacil/Tazobactam 3.375 GM in 0.9% Normal Saline (50mL MB+) 50 ML IV (16:04)
[2024-03-31] MEDS: Ondansetron ODT 4 MG Tablet PO (19:38)
[2024-03-31] MEDS: Ferrous Gluconate 324 MG Tablet PO (21:33)
[2024-03-31] MEDS: Naproxen 375 MG Tablet PO (21:33)
[2024-03-31] MEDS: Gabapentin 800 MG Tablet PO (21:33)
[2024-03-31] MEDS: oxyCODONE 5 MG Tablet 15 MG PO (21:33)
[2024-03-31] MEDS: traZODone 100 MG Tablet PO (21:33)
[2024-03-31] MEDS: Fleet Enema 133 ML RC (21:34)
[2024-04-01] VITALS (27 sets, daily range): BP systolic 100–144; BP diastolic 54–104; PULSE 89–154; RESP 8–22; TEMP 36.4–37.1; O2SAT 91–100
[2024-04-01] MEDS: oxyCODONE 5 MG Tablet 15 MG PO ×4 (05:21→23:26)
[2024-04-01] MEDS: Ondansetron ODT 4 MG Tablet PO ×2 (06:31→12:01)
[2024-04-01 07:06] LABS: Absolute Lymphocyte Count 0.22 X10^3/uL (0.83-4.51); Eosinophil# 0.07 X10^3/uL; Eosinophils% 0.4 % (0-5); Hematocrit 28.6 % (37-47); Lymphocyte # 0.22 X10^3/ul (0.83-4.51); Lymphocyte % 1.4 % (19-41); Mean Corpuscular Hgb 31.6 pg (27.0-32.0); Mean Corpuscular Volume 90.5 fL (81-99); Mean Platelet Vol. 11.2 fl (6.2-12.0); Monocyte% 3.1 % (0-10); NRBC Flagged by Analyzer 0 % (0-5); Neutrophil # 15.04 X10^3/uL (2.7-7.7); Neutrophil % 94.6 % (47-70); POSITIVE DIFFERENTIAL YES; POSITIVE MORPHOLOGY YES; Platelet Count 149 K/mm3 (150-450); RBC Distribution Width CV 12.8 % (11.6-14.6); RBC Distribution Width SD 42.5 fl (35.1-43.9); Red Blood Count 3.16 M/mm3 (4.2-5.4); White Blood Count 15.9 K/mm3 (4.4-11.0)
[2024-04-01 07:12] LABS: Differential Indicated SCAN CRITERIA MET
[2024-04-01 07:38] LABS: International Normalized Ratio 1.3; Prothrombin Time (Protime)PT. 16.5 SECONDS (11.7-14.9)
[2024-04-01] MEDS: Naproxen 375 MG Tablet PO ×2 (07:49→21:33)
[2024-04-01] MEDS: DULoxetine Hcl 60 MG Capsule PO (07:49)
[2024-04-01] MEDS: Gabapentin 800 MG Tablet PO ×4 (07:49→21:34)
[2024-04-01] MEDS: Ferrous Gluconate 324 MG Tablet PO ×2 (07:49→17:17)
[2024-04-01] MEDS: Enoxaparin 40 MG/0.4 ML Syringe SC (07:50)
[2024-04-01] MEDS: DULoxetine Hcl 30 MG Capsule PO (07:50)
[2024-04-01] MEDS: dilTIAZem 25 MG/5 ML Vial 12 MG IV BOLUS (08:11)
[2024-04-01] MEDS: Diltiazem 125 MG in Dextrose 5%-Water (100mL Bag) 100 ML IV (08:13)
[2024-04-01] MEDS: Ceftriaxone 1 GM/50 ML BAG IV (09:12)
[2024-04-01] MEDS: Ensure Plus High Protein 120 ML LIQUID PO ×3 (09:14→21:34)
[2024-04-01 09:28] LABS: ALB/GLOB Ratio 0.6 RATIO (0.9-2.4); AST(SGOT) 16 U/L (15-37); Alanine Aminotransfer ALT/SGPT 10 U/L (13-56); Albumin, Serum 2.1 g/dL (3.2-5.0); Alkaline Phosphatase 96 U/L (45-117); Anion Gap 9 (5-15); BUN 32 mg/dL (7-18); BUN/Creat Ratio 47.4 RATIO (10-20); Bilirubin, Direct 0.24 mg/dL (0.00-0.30); Calcium,Total 7.6 mg/dL (8.5-10.1); Chloride 107 mmol/L (98-107); Creatinine, Serum 0.68 mg/dL (0.55-1.02); EST Glomerular Filtration Rate 91 mL/min (>60); Est Glom Filt Rate - Afr Amer 110 mL/min (>60); Estimated Creatinine Clearance 47.36 ml/min; Globulin 3.3 g/dL (2.2-4.2); Glucose 135 mg/dL (74-106); Magnesium 2.1 mg/dL (1.6-2.6); Phosphorus 2.9 mg/dL (2.5-4.9); Potassium 2.8 mmol/L (3.5-5.1); Protein, Total 5.4 g/dL (6.4-8.2); Sodium Level 137 mmol/L (136-145); Thyroid Stim Hormone (TSH) 0.588 uIU/mL (0.358-3.740)
[2024-04-01] MEDS: Adenosine 6 MG/2 ML Syringe 12 MG IV (10:02)
--- NOTE | 2024-04-01 12:38 | WOUNDNOTE ---
wound photo: left foot
--- NOTE | 2024-04-01 12:39 | WOUNDNOTE ---
wound photo: sacrum
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
--- NOTE | 2024-04-01 12:56 | PN.HOSP_ITS ---
Reason for Visit Reason for Visit: Diagnoses Other constipation (03/31/24) Subjective Subjective Remained tachycardic today and worsened. Started on diltiazem gtt and maxxed out. Notified Dr. Ashby, who advised giving her 12mg of adenosine again. I was in the room and nursning administered and was an underlying sinus rhythm. Objective Data Objective Data Vital Signs: Vital Signs Temp Pulse Resp BP Pulse Ox O2 Del Method O2 Flow Rate 36.7 C 115 H 16 116/104 H 94 Room Air 2 04/01/24 08:00 04/01/24 10:15 04/01/24 10:15 04/01/24 10:15 04/01/24 10:15 04/01/24 10:15 03/31/24 13:00 Oxygen Flow Rate (L/min) 2 Oxygen Delivery Method Room Air Weight: 47.2 kg Body Mass Index (BMI) 19.0 Intake & Output: Intake and Output for Last 24 Hours 03/30/24 03/31/24 04/01/24 23:59 23:59 23:59 Intake Total 1433 / 1433 76.42 / 76.42 Output Total 675 / 675 Balance 1433 / 1433 -598.58 / -598.58 Lab / Micro Data 04/01/24 06:45 04/01/24 06:45 Labs: Laboratory Results - last 24 hr 03/31/24 12:00: B-Natriuretic Peptide 1148.9 H 03/31/24 12:49: Urine Color Yellow, Urine Clarity Sl. Cloudy, Urine pH 6.5, Ur Specific [place] 1.010, Urine Protein 30 H, Urine Glucose (UA) Normal, Urine Ketones Negative, Urine Occult Blood 10 H, Urine Nitrite Negative, Urine Bilirubin 1 H, Urine Urobilinogen 1 H, Ur Leukocyte Esterase 100 H, Urine RBC 0 SEEN, Urine WBC 0-5 SEEN, Ur Squamous Epith Cells 0 SEEN, Urine Bacteria 2+, Urine Mucus 0 SEEN 03/31/24 12:59: Lactic Acid 1.0 03/31/24 15:01: Troponin I High Sens 25 04/01/24 06:45: WBC 15.9 H, RBC 3.16 L, Hgb 10.0 L, Hct 28.6 L, MCV 90.5, MCH 31.6, MCHC 35.0, RDW Std Deviation 42.5, RDW Coeff of Pretty 12.8, Plt Count 149 L, MPV 11.2, Immature Gran % (Auto) 0.500, Neut % (Auto) 94.6 H, Lymph % (Auto) 1.4 L, [place] % (Auto) 3.1, Eos % (Auto) 0.4, Baso % (Auto) 0.0, Absolute Neuts (auto) 15.0 H, Absolute Lymphs (auto) 0.22 L, Nucleated RBC % 0, Differential Comment COMMENT, PT 16.5 H, INR 1.3, Sodium 137, Potassium 2.8 L, Chloride 107, Carbon Dioxide 21.0, Anion Gap 9, BUN 32 H, Creatinine 0.68, Estim Creat Clear Calc 47.36, Est GFR (MDRD) Af Amer 110, Est GFR (MDRD) Non-Af 91, BUN/Creatinine Ratio 47.4 H, Glucose 135 H, Calcium 7.6 L, Phosphorus 2.9, Magnesium 2.1, Total Bilirubin 0.60, Direct Bilirubin 0.24, AST 16, ALT 10 L, Alkaline Phosphatase 96, Total Protein 5.4 L, Albumin 2.1 L, Globulin 3.3, Albumin/Globulin Ratio 0.6 L, TSH 0.588 Micro: Microbiology 03/31/24 22:45 Stool Enteric Bacteriology - Final 03/31/24 12:49 Mucosa - Nose SARS-CoV-2, Influenza & RSV (PCR) - Final Radiography Diagnostic Testing: Radiology Impression Chest X-Ray 03/31/24 12:06 IMPRESSION: No evidence of active intrathoracic disease. Electronically Signed: Keesha Cardoso MD at 13:39 EST , Abdomen/Pelvis CT 03/31/24 14:29 IMPRESSION: 1. Rectal wall thickening with perirectal stranding consistent with acute proctitis or proctocolitis. 2. No bowel obstruction. Moderate colonic stool predominantly in the right colon. 3. Biliary dilatation, not significantly changed. Electronically Signed: Keesha Cardoso MD at 15:23 EST , Physical Exam Const alert and no apparent distress HEENT head/scalp atraumatic and moist oral mucous membranes Resp normal respiratory effort, no retractions, no use of accessory muscles and clear to auscultation bilaterally Cardio Cardio Narrative: tachy regular GI GI Narrative: TTP, non-distended. Extremity Extremity Narrative: atrophic legs. Neuro Sensorium / Orientation: awake and alert Psych affect normal Assessment & Plan Assessment/Plan (1) Chronic constipation: PLAN: Plan Colitis * UTI ruled out * check enteric panel * infectious v inflammatory v ischemic * change abx to ampicillin/SB Sinus tachycardia * Pt received 12mg of adenosine while I was in the room and underlying rhythm was sinus * on dilt gtt. * cardiology consult * d-dimer. VTE prophylaxis: LMWH. Charges/Coding Visit Charges Inpatient E&M: 48760 [facility] Hosp L3
--- NOTE | 2024-04-01 12:59 | ECHOD_ITS ---
Reason For Study: ARRRHTHMIA Procedure This was a 2D Doppler, Color Flow transthoracic echocardiogram. Exam performed portable in patient room. Left Ventricle Normal LV size. The estimated ejection fraction is 65 %. Diastolic function is indeterminate. No regional wall motion abnormalities noted. Right Ventricle Normal RV size. Normal systolic function. Atria The left atrium is mildly enlarged. Normal right atrium. Mitral Valve The mitral valve is structurally normal. No prolapse or stenosis seen. Mild-Moderate (1-2+) mitral valve insufficiency. Tricuspid Valve Normal tricuspid valve. Mild (1+) tricuspid valve insufficiency. Pulmonary artery systolic pressure is 37 mmHg. Aortic Valve Trisinus/trileaflet aortic valve. Mild (1+) aortic valve insufficiency. Pulmonic Valve Normal pulmonic valve. Great Vessels Normal aortic root. Pericardium/Pleural No pericardial effusion. MMode/2D Measurements & Calculations LVIDd: 4.4 cm IVSd: 1.0 cm LVOT diam: 1.9 cm LVIDs: 2.8 cm LVPWd: 0.95 cm LVOT area: 2.8 cm2 RVDd: 3.9 cm FS: 35.3 % asc Aorta Diam: 3.3 cm LAV(MOD-bp): 50.0 ml LVAd ap4: 31.1 cm2 LAV(MOD-bp) Indexed: 34.5 ml/m2 LVLd ap4: 8.6 cm LAV(MOD-sp2): 44.0 ml EDV(MOD-sp4): 93.6 ml LAV(MOD-sp4): 48.1 ml EDV(sp4-el): 95.9 ml LVAs ap4: 16.8 cm2 LVLs ap4: 7.2 cm ESV(MOD-sp4): 34.8 ml ESV(sp4-el): 33.6 ml EF(MOD-sp4): 62.8 % EF(sp4-el): 65.0 % SV(MOD-sp4): 58.8 ml SV(sp4-el): 62.3 ml LA A4 area: 19.2 cm2 SI(MOD-sp4): 40.6 ml/m2 LA dimension(2D): 3.5 cm RA A4 area: 15.7 cm2 TAPSE: 2.9 cm Time Measurements MV dec time: 0.13 sec Doppler Measurements & Calculations MV E max keith: 90.1 cm/sec Lat Peak E' Keith: 12.8 cm/sec Med Peak E' Keith: 9.9 cm/sec MV A max keith: 94.0 cm/sec E/E' lat: 7.0 E/E' med: 9.1 MV E/A: 0.96 MV V2 max: 110.9 cm/sec Ao V2 max: 195.4 cm/sec MV max P.9 mmHg MV dec slope: 674.7 cm/sec2 Ao max P.3 mmHg MV V2 mean: 74.5 cm/sec Ao V2 mean: 133.3 cm/sec MV mean P.5 mmHg Ao mean P.1 mmHg MV V2 VTI: 26.6 cm Ao V2 VTI: 33.5 cm AV (velocity ratio): 0.95 MVA(VTI): 3.3 cm2 DEIDRA(I,D): 2.7 cm2 DEIDRA(V,D): 2.6 cm2 AI max keith: 385.8 cm/sec LV V1 max: 181.8 cm/sec SV(LVOT): 89.2 ml AI max P.6 mmHg LV V1 max P.2 mmHg LV V1 mean P.4 mmHg AI dec slope: 445.9 cm/sec2 LV V1 mean: 74.7 cm/sec AI P1/2t: 253.5 msec LV V1 VTI: 31.8 cm PA V2 max: 118.9 cm/sec TR max keith: 291.9 cm/sec TR max P.1 mmHg ECHO/Echo Complete Interpretation Summary The estimated ejection fraction is 65 %. Diastolic function is indeterminate. The left atrium is mildly enlarged. Mild-Moderate (1-2+) mitral valve insufficiency. Mild (1+) tricuspid valve insufficiency. Mild (1+) aortic valve insufficiency. Ordering Physician: Gonzalez Ashby Referring Physician: ERNIE FREEMAN Performed By: Mandie Phipps and Student
[2024-04-01 13:38] LABS: D-Dimer Quantitative (DVT/PE) 1.81 FEU/ug/m (0.27-0.49)
[2024-04-01] MEDS: Ampicillin/Sulbactam 3 GM in 0.9% Normal Saline (100mL MB+) 100 ML IV ×3 (13:44→23:26)
--- NOTE | 2024-04-01 13:57 | CT_ITS ---
EXAM: CT ANGIOGRAPHY CHEST WITH INTRAVENOUS CONTRAST CLINICAL INDICATION: tachycardia TECHNIQUE: Helically acquired angiography images were obtained of the chest with intravenous contrast. This CT exam was performed using one or more of the following dose reduction techniques: automated exposure control, adjustment of the mA and/or kV according to patient size, and/or use of iterative reconstruction technique. MIP reconstructed images were created and reviewed. CONTRAST: IV 70mL [id number] COMPARISON: Chest radiograph 03/31/2024 FINDINGS: PULMONARY ARTERIES: Normal. Normal in caliber. No evidence of pulmonary embolism. AORTA: Normal. Normal in caliber. No evidence of dissection. GREAT VESSELS OF AORTIC ARCH: Normal. Normal in caliber. No evidence of dissection. LUNGS AND PLEURAL SPACES: Small bilateral pleural effusions and minor bibasilar atelectasis. No mass. No pneumothorax. HEART: Mild to moderate cardiomegaly. No significant coronary artery calcification. Small pericardial effusion. MEDIASTINUM: Normal. No mediastinal or hilar adenopathy. Esophagus is unremarkable. No hiatal hernia. BONES/JOINTS: Normal. No suspicious lytic or blastic abnormality. SOFT TISSUES: Diffuse edematous changes of the subcutaneous tissues. CT/CTA Chest W/WO Contrast IMPRESSION: 1. No evidence of acute pulmonary embolism. 2. Mild cardiomegaly with small pericardial effusion. 3. Minimal bilateral pleural effusions. 4. Mild diffuse uptake is edema . Electronically Signed: Vipul Brooks MD at 15:48 EST ,
--- NOTE | 2024-04-01 15:49 | CASEMGMT ---
EFE BASS Assessment Face to Face with patient for initial transition planning/care coordination assessment. EFE BASS introduced self and role at [facility], pt voices understanding. Pt is A&Ox4 and is resting comfortably in bed and is calm. Care providers, pharmacy, and demographics verified. Admitting dx: Colitis LACE Strata: 3 PCP: Tressa Trevizo Specialists: Nakul (Podiatry) @ the [facility] Preferred Pharmacy: [facility] Insurance: MCR A/B, MMO Prescription Benefit: Yes LNOK: Bela Perales (Reece), Sneha Sanchez (Sister) Living Arrangements: Pt lives alone in a ground level apt with a ramp to enter ADLs/IADLs: Pt is a paraplegic and uses a power assisted W/C. Pt reports that she is able to care for herself predominately. Transportation: Family, friends. Denies concerns DME: Pari, power assisted W/C HHC/SNF: Hx with [facility] HH[facility] at [facility] Pt?s goal: return home Plan: Anticipate DC home with the continuation of HHC and OP care through the [facility]. Pt states that she has been going to the [facility] 1x/week. Pt states that she is able to change her dressing on days that she does not go to the [facility]. Pt states that she would like to also continue the home care for now. Pt states that she feels safe with this plan and denies further concerns. Report given to VOTING MACHINE REPAIRER CM. Sam Michele RN, CM
--- NOTE | 2024-04-01 15:54 | CASEMGMT ---
Discharge Planning HH resumption referral sent to [facility] via [facility]. Karla Hilton DC Planning Asst.
--- NOTE | 2024-04-01 16:19 | CASEMGMT ---
Discharge Planning [facility] advised that pt may discharge over the weekend. Phone/fax obtained and green sheet placed on chart. EFE CM updated. Karla Hilton DC Planning Asst.
[2024-04-01] MEDS: Diltiazem 125 MG in Dextrose 5%-Water (100mL Bag) 100 ML 15 MG IV (17:22)
[2024-04-01] MEDS: traZODone 100 MG Tablet PO (21:34)
[2024-04-01] MEDS: cloNIDine HCl 0.1 MG Tablet PO (21:34)
[2024-04-02] VITALS (22 sets, daily range): BP systolic 91–125; BP diastolic 41–68; PULSE 86–116; RESP 10–18; TEMP 36.4–37.2; O2SAT 93–98
[2024-04-02] MEDS: Ampicillin/Sulbactam 3 GM in 0.9% Normal Saline (100mL MB+) 100 ML IV ×4 (05:19→23:39)
[2024-04-02] MEDS: Diltiazem 125 MG in Dextrose 5%-Water (100mL Bag) 100 ML IV (06:19)
[2024-04-02 07:16] LABS: Absolute Lymphocyte Count 0.46 X10^3/uL (0.83-4.51); Absolute Neutrophil Count 13.8 X10^3/uL (2.0-7.7); Basophil# 0.02 X10^3/uL; Basophil% 0.1 % (0-1); Eosinophil# 0.18 X10^3/uL; Eosinophils% 1.2 % (0-5); Hematocrit 23.5 % (37-47); Hemoglobin 8.6 g/dL (12.0-15.0); Lymphocyte # 0.46 X10^3/ul (0.83-4.51); Mean Corp Hgb Conc 36.6 g/dL (32-36); Mean Corpuscular Volume 87.4 fL (81-99); Mean Platelet Vol. 11.5 fl (6.2-12.0); Monocyte# 0.55 X10^3/uL; Monocyte% 3.6 % (0-10); NRBC Flagged by Analyzer 0 % (0-5); Neutrophil # 13.82 X10^3/uL (2.7-7.7); Neutrophil % 89.3 % (47-70); POSITIVE DIFFERENTIAL YES; POSITIVE MORPHOLOGY YES; Platelet Count 122 K/mm3 (150-450); RBC Distribution Width CV 12.6 % (11.6-14.6); RBC Distribution Width SD 40.3 fl (35.1-43.9); Red Blood Count 2.69 M/mm3 (4.2-5.4); White Blood Count 15.5 K/mm3 (4.4-11.0)
[2024-04-02 07:21] LABS: Differential Indicated SCAN CRITERIA MET
[2024-04-02 07:30] LABS: Anion Gap 5 (5-15); BUN 21 mg/dL (7-18); BUN/Creat Ratio 50.4 RATIO (10-20); Calcium,Total 7.9 mg/dL (8.5-10.1); Chloride 106 mmol/L (98-107); Creatinine, Serum 0.42 mg/dL (0.55-1.02); EST Glomerular Filtration Rate 159 mL/min (>60); Est Glom Filt Rate - Afr Amer 192 mL/min (>60); Estimated Creatinine Clearance 47.36 ml/min; Glucose 97 mg/dL (74-106); Potassium 2.7 mmol/L (3.5-5.1); Sodium Level 136 mmol/L (136-145)
[2024-04-02] MEDS: Gabapentin 800 MG Tablet PO ×3 (07:35→21:48)
[2024-04-02] MEDS: Ferrous Gluconate 324 MG Tablet PO ×2 (07:36→16:39)
[2024-04-02] MEDS: Enoxaparin 40 MG/0.4 ML Syringe SC (07:36)
[2024-04-02] MEDS: DULoxetine Hcl 30 MG Capsule PO (07:36)
[2024-04-02] MEDS: Naproxen 375 MG Tablet PO ×2 (07:36→21:48)
[2024-04-02] MEDS: DULoxetine Hcl 60 MG Capsule PO (07:36)
[2024-04-02] MEDS: Ensure Plus High Protein 120 ML LIQUID PO ×2 (07:38→11:43)
--- NOTE | 2024-04-02 07:57 | PCM.PN.HOSP ---
Reason for Visit Reason for Visit: Diagnoses Paraplegia, unspecified (03/31/24) Noninfective gastroenteritis and colitis, unspecified (03/31/24) Other constipation (03/31/24) Tachycardia, unspecified (03/31/24) Subjective Subjective Feeling better. Still with abdominal pain, but better and eating. Diltiazem gtt turned off. Objective Data Objective Data Vital Signs: Vital Signs Temp Pulse Resp BP Pulse Ox O2 Del Method O2 Flow Rate 37.2 C 90 16 111/58 L 98 Room Air 2 04/02/24 07:45 04/02/24 07:45 04/02/24 07:45 04/02/24 07:45 04/02/24 07:45 04/02/24 07:45 03/31/24 13:00 Oxygen Flow Rate (L/min) 2 Oxygen Delivery Method Room Air Weight: 47.2 kg Body Mass Index (BMI) 19.0 Intake & Output: Intake and Output for Last 24 Hours 03/31/24 04/01/24 04/02/24 23:59 23:59 23:59 Intake Total 1433 / 1433 480.75 / 490.75 387.25 / 387.25 Output Total 1725 / 1725 475 / 475 Balance 1433 / 1433 -1244.25 / -1234.25 -87.75 / -87.75 Medical Nutrition Assessment Dietitian: Malnutrition Criteria Met Start: 04/01/24 14:17 Freq: Status: Active Protocol: Document 04/01/24 14:17 SB (Rec: 04/01/24 14:17 SB [id number]) Nutrition Malnutrition Evidence of Malnutrition Exists Yes Malnutrition (severe): Acute Illness/Injury Evidenced By Suboptimal Energy Intake ( Severe),Physical Changes ( Severe) Intake Problem Increased Nutrient Needs (specify) Etiology protein related to would healing Signs/Symptoms as evidenced by pressure injury on coccyx and left great toe Status Active Problem Clinical Problem Acute Disease or Injury Related Malnutrition Etiology severe related to inadequate oral intake Signs/Symptoms as evidenced by PO meeting <50 % of estimated nutrition needs x 1-2 weeks and severe muscle and fat wasting in clavicle, temples, and orbital regions. Status Active Problem Recommendation Dietitian Recommendations/Changes Continue regular diet and 120ml ensure plus high protein 4x daily with medpass, prefers vanilla. Will order 1 scoop of beneproten TID with meals. Will order fruit punch Leeroy BId with breakfast and dinner. Will adjust ONS, as needed. Will monitor weight trends. Reviewed and approved by Gracie Ken RD, LD. Lab / Micro Data 04/02/24 06:45 04/02/24 06:45 Labs: Laboratory Results - last 24 hr 04/01/24 06:45: Sodium 137, Potassium 2.8 L, Chloride 107, Carbon Dioxide 21.0, Anion Gap 9, BUN 32 H, Creatinine 0.68, Estim Creat Clear Calc 47.36, Est GFR (MDRD) Af Amer 110, Est GFR (MDRD) Non-Af 91, BUN/Creatinine Ratio 47.4 H, Glucose 135 H, Calcium 7.6 L, Phosphorus 2.9, Magnesium 2.1, Total Bilirubin 0.60, Direct Bilirubin 0.24, AST 16, ALT 10 L, Alkaline Phosphatase 96, Total Protein 5.4 L, Albumin 2.1 L, Globulin 3.3, Albumin/Globulin Ratio 0.6 L, TSH 0.588 04/01/24 12:15: D-Dimer Quant (PE/DVT) 1.81 H* 04/02/24 06:45: WBC 15.5 H, RBC 2.69 L, Hgb 8.6 L, Hct 23.5 L, MCV 87.4, MCH 32.0, MCHC 36.6 H, RDW Std Deviation 40.3, RDW Coeff of Pretty 12.6, Plt Count 122 L, MPV 11.5, Immature Gran % (Auto) 2.800 H, Neut % (Auto) 89.3 H, Lymph % (Auto) 3.0 L, [place] % (Auto) 3.6, Eos % (Auto) 1.2, Baso % (Auto) 0.1, Absolute Neuts (auto) 13.8 H, Absolute Lymphs (auto) 0.46 L, Nucleated RBC % 0, Sodium 136, Potassium 2.7 L*, Chloride 106, Carbon Dioxide 25.0, Anion Gap 5, BUN 21 H, Creatinine 0.42 L, Estim Creat Clear Calc 47.36, Est GFR (MDRD) Af Amer 192, Est GFR (MDRD) Non-Af 159, BUN/Creatinine Ratio 50.4 H, Glucose 97, Calcium 7.9 L Micro: Microbiology 03/31/24 12:49 Urine, Catheterized Urine Culture - Final Escherichia coli 03/31/24 22:45 Stool Enteric Bacteriology - Final 03/31/24 12:49 Mucosa - Nose SARS-CoV-2, Influenza & RSV (PCR) - Final Radiography Diagnostic Testing: Radiology Impression Echocardiogram 04/01/24 12:59 Interpretation Summary The estimated ejection fraction is 65 %. Diastolic function is indeterminate. The left atrium is mildly enlarged. Mild-Moderate (1-2+) mitral valve insufficiency. Mild (1+) tricuspid valve insufficiency. Mild (1+) aortic valve insufficiency. Ordering Physician: Gonzalez Ashby Referring Physician: ERNIE FREEMAN Performed By: Mandie Phipps and Student Chest CTA 04/01/24 13:57 IMPRESSION: 1. No evidence of acute pulmonary embolism. 2. Mild cardiomegaly with small pericardial effusion. 3. Minimal bilateral pleural effusions. 4. Mild diffuse uptake is edema . Electronically Signed: Vipul Brooks MD at 15:48 EST Reading Location ID and State: [address] [place] [address] Tel , Service support , Rhythm Strip Rhythm Strip: Sinus Tach Physical Exam Const alert and no apparent distress HEENT head/scalp atraumatic and moist oral mucous membranes Resp normal respiratory effort, no retractions, no use of accessory muscles and clear to auscultation bilaterally Cardio regular rate, regular rhythm, S1 normal heart sound and S2 normal heart sound GI normal to inspection, nondistended, normoactive bowel sounds, soft to palpation and non-distended GI Narrative: slight abdominal tenderness. Assessment & Plan Assessment/Plan (1) Chronic constipation: PLAN: Plan Colitis UTI ruled out (Urine culture positive, but UA was unremarkable for infection) check enteric panel negative. infectious v inflammatory v ischemic change abx to ampicillin/SB Sinus tachycardia 04/01: Pt received 12mg of adenosine while I was in the room and underlying rhythm was sinus on dilt gtt, weaned off. Will add metoprolol CTA chest showed small pericardial effusion. Echo shows an EF 65% (no mention of pericardial effusion. ) Hypokalemia replace and continue to monitor. magnesium previously WNL. Paraplegia manages self at home, but concern she may be too weak to return home right away. VTE prophylaxis: LMWH. Charges/Coding Visit Charges Inpatient E&M: 57847 Subs Hosp L2
[2024-04-02 07:59] LABS: Differential Comment SCANNED
[2024-04-02] MEDS: Potassium Chloride Oral Tablet 20 MEQ 60 MEQ PO (08:43)
[2024-04-02] MEDS: Metoprolol Tartrate 25 MG Tablet PO ×2 (08:43→21:49)
--- NOTE | 2024-04-02 10:25 | PCM.PN.CARD ---
Subjective Subjective Reports abdominal pain being better. Denies any palpitations. No chest pains. Objective Data Vital Signs: Vital Signs Temp Pulse Resp BP Pulse Ox O2 Del Method O2 Flow Rate 99.0 F 95 16 110/64 98 Room Air 2 04/02/24 07:45 04/02/24 09:00 04/02/24 07:45 04/02/24 09:00 04/02/24 07:57 04/02/24 08:22 03/31/24 13:00 Oxygen Flow Rate (L/min) 2 Oxygen Delivery Method Room Air Weight: 104 lb 0.931 oz Body Mass Index (BMI) 19.0 Intake & Output: Intake and Output for Last 24 Hours 03/31/24 04/01/24 04/02/24 23:59 23:59 23:59 Intake Total 1433 / 1433 480.75 / 490.75 404.17 / 404.17 Output Total 1725 / 1725 475 / 475 Balance 1433 / 1433 -1244.25 / -1234.25 -70.83 / -70.83 Lab / Micro Data 04/02/24 06:45 04/02/24 06:45 Labs: Laboratory Results - last 24 hr 04/01/24 12:15: D-Dimer Quant (PE/DVT) 1.81 H* 04/02/24 06:45: WBC 15.5 H, RBC 2.69 L, Hgb 8.6 L, Hct 23.5 L, MCV 87.4, MCH 32.0, MCHC 36.6 H, RDW Std Deviation 40.3, RDW Coeff of Pretty 12.6, Plt Count 122 L, MPV 11.5, Immature Gran % (Auto) 2.800 H, Neut % (Auto) 89.3 H, Lymph % (Auto) 3.0 L, [place] % (Auto) 3.6, Eos % (Auto) 1.2, Baso % (Auto) 0.1, Absolute Neuts (auto) 13.8 H, Absolute Lymphs (auto) 0.46 L, Nucleated RBC % 0, Differential Comment SCANNED, Sodium 136, Potassium 2.7 L*, Chloride 106, Carbon Dioxide 25.0, Anion Gap 5, BUN 21 H, Creatinine 0.42 L, Estim Creat Clear Calc 47.36, Est GFR (MDRD) Af Amer 192, Est GFR (MDRD) Non-Af 159, BUN/Creatinine Ratio 50.4 H, Glucose 97, Calcium 7.9 L Micro: Microbiology 03/31/24 12:49 Urine, Catheterized Urine Culture - Final Escherichia coli 03/31/24 22:45 Stool Enteric Bacteriology - Final Rhythm Strip Rhythm Strip: Sinus Tach Cardiology Labs/Tests 04/01/24 12:15: D-Dimer Quant (PE/DVT) 1.81 H* 04/02/24 06:45: WBC 15.5 H, RBC 2.69 L, Hgb 8.6 L, Hct 23.5 L, MCV 87.4, MCH 32.0, MCHC 36.6 H, Plt Count 122 L, MPV 11.5, Immature Gran % (Auto) 2.800 H, Neut % (Auto) 89.3 H, Lymph % (Auto) 3.0 L, [place] % (Auto) 3.6, Eos % (Auto) 1.2, Baso % (Auto) 0.1, Absolute Neuts (auto) 13.8 H, Nucleated RBC % 0, Sodium 136, Potassium 2.7 L*, Chloride 106, Carbon Dioxide 25.0, Anion Gap 5, BUN 21 H, Creatinine 0.42 L, Est GFR (MDRD) Af Amer 192, Est GFR (MDRD) Non-Af 159, BUN/Creatinine Ratio 50.4 H, Glucose 97, Calcium 7.9 L Rhythm: EKG: ECHO: Stress Test: Cardiac Cath: PCI: CT Surgery: Holter monitor: EPS: PPM: CXR: Chest CT Scan: Radiography Diagnostic Testing: Radiology Impression Echocardiogram 04/01/24 12:59 Interpretation Summary The estimated ejection fraction is 65 %. Diastolic function is indeterminate. The left atrium is mildly enlarged. Mild-Moderate (1-2+) mitral valve insufficiency. Mild (1+) tricuspid valve insufficiency. Mild (1+) aortic valve insufficiency. Ordering Physician: Gonzalez Ashby Referring Physician: ERNIE FREEMAN Performed By: Mandie Phipps and Student Chest CTA 04/01/24 13:57 IMPRESSION: 1. No evidence of acute pulmonary embolism. 2. Mild cardiomegaly with small pericardial effusion. 3. Minimal bilateral pleural effusions. 4. Mild diffuse uptake is edema . Electronically Signed: Vipul Brooks MD at 15:48 EST , Physical Exam Narrative Lying flat in the bed. No apparent distress. Alert oriented x 3. Assessment & Plan Assessment/Plan (1) Sinus tachycardia: PLAN: Improved. Most likely secondary to underlying colitis with pain. Discontinue diltiazem. (2) Acute colitis: PLAN: As per GI/internal medicine. (3) Paraplegia: PLAN: Supportive care.
[2024-04-02] MEDS: oxyCODONE 5 MG Tablet 15 MG PO (11:43)
[2024-04-02] MEDS: Polyethylene Glycol 3350 17 GM PACKET PO (12:14)
--- NOTE | 2024-04-02 14:50 | RAD_ITS ---
STUDY: X-RAY - ABDOMEN/PELVIS REASON FOR EXAM: Female, 73 years old. R/O ileus ABDOMINAL PAIN, HX OF ILEUS WITH SURGERY x1 YR AGO TECHNIQUE: Two AP supine views of the abdomen and pelvis. COMPARISON: CT of abdomen and pelvis dated March 31, 2024 FINDINGS: 1. Stable right side spinal stimulating electronic device and lead 2. Minimal gaseous distention of the stomach 3. No x-ray evidence of small bowel ileus. 4. Redemonstration of chronic fracture dislocation of the right hip 5. Normal visualized lung bases. 6. There is an unremarkable bowel gas pattern. Normal soft tissue structures. There are diffuse degenerative changes of the visualized lumbar spine. RAD/Abdomen Single View (Portable) IMPRESSION: No x-ray evidence of small bowel ileus Electronically Signed: Reagan Sanabria MD at 15:56 EST ,
[2024-04-02] MEDS: Potassium Chloride Oral Tablet 20 MEQ 40 MEQ PO (16:39)
[2024-04-02] MEDS: cloNIDine HCl 0.1 MG Tablet PO (21:49)
[2024-04-02 22:14] LABS: Bedside Glucose 101 mg/dL (74-106)
[2024-04-03] VITALS (14 sets, daily range): BP systolic 110–137; BP diastolic 63–76; PULSE 97–148; RESP 16–18; TEMP 36.3–37.7; O2SAT 94–97
[2024-04-03] MEDS: oxyCODONE 5 MG Tablet 15 MG PO ×2 (05:46→17:53)
[2024-04-03] MEDS: Ampicillin/Sulbactam 3 GM in 0.9% Normal Saline (100mL MB+) 100 ML IV ×4 (05:47→23:33)
[2024-04-03 07:00] LABS: Absolute Lymphocyte Count 0.57 X10^3/uL (0.83-4.51); Absolute Neutrophil Count 10.4 X10^3/uL (2.0-7.7); Basophil# 0.07 X10^3/uL; Basophil% 0.6 % (0-1); Eosinophil# 0.18 X10^3/uL; Eosinophils% 1.5 % (0-5); Hematocrit 25.9 % (37-47); Hemoglobin 9.2 g/dL (12.0-15.0); Lymphocyte # 0.57 X10^3/ul (0.83-4.51); Lymphocyte % 4.8 % (19-41); Mean Corp Hgb Conc 35.5 g/dL (32-36); Mean Corpuscular Hgb 31.9 pg (27.0-32.0); Mean Corpuscular Volume 89.9 fL (81-99); Mean Platelet Vol. 11.4 fl (6.2-12.0); Monocyte# 0.49 X10^3/uL; Monocyte% 4.1 % (0-10); NRBC Flagged by Analyzer 0 % (0-5); Neutrophil % 87.8 % (47-70); POSITIVE DIFFERENTIAL YES; POSITIVE MORPHOLOGY YES; Platelet Count 144 K/mm3 (150-450); RBC Distribution Width CV 13.4 % (11.6-14.6); RBC Distribution Width SD 44.3 fl (35.1-43.9); Red Blood Count 2.88 M/mm3 (4.2-5.4); White Blood Count 11.9 K/mm3 (4.4-11.0)
[2024-04-03] MEDS: Ferrous Gluconate 324 MG Tablet PO ×2 (07:51→17:02)
[2024-04-03 07:54] LABS: Differential Indicated SCAN CRITERIA MET
[2024-04-03] MEDS: Gabapentin 800 MG Tablet PO ×4 (07:55→21:37)
[2024-04-03 08:10] LABS: Anion Gap 4 (5-15); BUN 19 mg/dL (7-18); BUN/Creat Ratio 61.7 RATIO (10-20); Calcium,Total 8.1 mg/dL (8.5-10.1); Chloride 106 mmol/L (98-107); Creatinine, Serum 0.31 mg/dL (0.55-1.02); EST Glomerular Filtration Rate 225 mL/min (>60); Est Glom Filt Rate - Afr Amer 272 mL/min (>60); Estimated Creatinine Clearance 47.36 ml/min; Glucose 82 mg/dL (74-106); Potassium 5.3 mmol/L (3.5-5.1); Sodium Level 138 mmol/L (136-145)
--- NOTE | 2024-04-03 08:11 | PN.HOSP_ITS ---
Reason for Visit Reason for Visit: Diagnoses Paraplegia, unspecified (03/31/24) Noninfective gastroenteritis and colitis, unspecified (03/31/24) Other constipation (03/31/24) Tachycardia, unspecified (03/31/24) Subjective Subjective Has had some issues in regards to coordination of her hands. She did when she was trying to text she was hitting the wrong letters and was typing nonsensical words. States that she gets this occasionally at home. She has a history of transverse myelitis involving her thoracic spine and nothing that previous involved her cervical spine. Nursing had noted that she was bit confused yesterday but overall better today. Objective Data Objective Data Vital Signs: Vital Signs Temp Pulse Resp BP Pulse Ox O2 Del Method O2 Flow Rate 36.3 C L 97 16 122/63 H 96 Room Air 2 04/03/24 07:47 04/03/24 07:47 04/03/24 07:47 04/03/24 07:47 04/03/24 07:47 04/03/24 07:47 03/31/24 13:00 Oxygen Flow Rate (L/min) 2 Oxygen Delivery Method Room Air Weight: 47.2 kg Body Mass Index (BMI) 19.0 Intake & Output: Intake and Output for Last 24 Hours 04/01/24 04/02/24 04/03/24 23:59 23:59 23:59 Intake Total 480.75 / 490.75 2268.17 / 2268.17 612 / 612 Output Total 1725 / 1725 1725 / 1725 900 / 900 Balance -1244.25 / -1234.25 543.17 / 543.17 -288 / -288 Medical Nutrition Assessment Dietitian: Malnutrition Criteria Met Start: 04/01/24 14:17 Freq: Status: Active Protocol: Document 04/01/24 14:17 SB (Rec: 04/01/24 14:17 SB [id number]) Nutrition Malnutrition Evidence of Malnutrition Exists Yes Malnutrition (severe): Acute Illness/Injury Evidenced By Suboptimal Energy Intake ( Severe),Physical Changes ( Severe) Intake Problem Increased Nutrient Needs (specify) Etiology protein related to would healing Signs/Symptoms as evidenced by pressure injury on coccyx and left great toe Status Active Problem Clinical Problem Acute Disease or Injury Related Malnutrition Etiology severe related to inadequate oral intake Signs/Symptoms as evidenced by PO meeting <50 % of estimated nutrition needs x 1-2 weeks and severe muscle and fat wasting in clavicle, temples, and orbital regions. Status Active Problem Recommendation Dietitian Recommendations/Changes Continue regular diet and 120ml ensure plus high protein 4x daily with medpass, prefers vanilla. Will order 1 scoop of beneproten TID with meals. Will order fruit punch Leeroy BId with breakfast and dinner. Will adjust ONS, as needed. Will monitor weight trends. Reviewed and approved by Gracie Ken, RD, LD. Lab / Micro Data 04/03/24 06:10 04/03/24 06:10 Labs: Laboratory Results - last 24 hr 04/02/24 20:01: POC Glucose 101 04/03/24 06:10: WBC 11.9 H, RBC 2.88 L, Hgb 9.2 L, Hct 25.9 L, MCV 89.9, MCH 31.9, MCHC 35.5, RDW Std Deviation 44.3 H, RDW Coeff of Pretty 13.4, Plt Count 144 L, MPV 11.4, Immature Gran % (Auto) 1.200 H, Neut % (Auto) 87.8 H, Lymph % (Auto) 4.8 L, [place] % (Auto) 4.1, Eos % (Auto) 1.5, Baso % (Auto) 0.6, Absolute Neuts (auto) 10.4 H, Absolute Lymphs (auto) 0.57 L, Nucleated RBC % 0, Sodium 138, Potassium 5.3 H, Chloride 106, Carbon Dioxide 27.0, Anion Gap 4 L, BUN 19 H , Creatinine 0.31 L, Estim Creat Clear Calc 47.36, Est GFR (MDRD) Af Amer 272, Est GFR (MDRD) Non-Af 225, BUN/Creatinine Ratio 61.7 H, Glucose 82, Calcium 8.1 L Micro: Microbiology 03/31/24 12:59 Blood Culture (Wb) - Arm Right Blood Culture - Preliminary No growth in 48 hours. 03/31/24 12:18 Blood Culture (Wb) - Right Forearm Blood Culture - Preliminary No growth in 48 hours. 03/31/24 12:49 Urine, Catheterized Urine Culture - Final Escherichia coli 03/31/24 22:45 Stool Enteric Bacteriology - Final 03/31/24 12:49 Mucosa - Nose SARS-CoV-2, Influenza & RSV (PCR) - Final Radiography Diagnostic Testing: Radiology Impression KUB X-Ray 04/02/24 14:50 IMPRESSION: No x-ray evidence of small bowel ileus Electronically Signed: Reagna Sanabria MD at 15:56 EST Reading Location ID and State: [facility] / [place] , Service support , Rhythm Strip Rhythm Strip: Sinus Tach Physical Exam Const alert and no apparent distress HEENT head/scalp atraumatic and moist oral mucous membranes Resp normal respiratory effort, no retractions, no use of accessory muscles and clear to auscultation bilaterally Cardio regular rate, regular rhythm, S1 normal heart sound and S2 normal heart sound GI normal to inspection, nondistended, normoactive bowel sounds, soft to palpation, non-tender and non-distended Extremity Extremity Narrative: Marked atrophy of lower extremities. Neuro Neuro Narrative: Moves upper extremities without difficulty. Sensorium / Orientation: awake and alert Assessment & Plan Assessment/Plan (1) Acute colitis: PLAN: Plan Colitis * UTI ruled out (Urine culture positive, but UA was unremarkable for infection) * enteric panel negative * infectious v inflammatory v ischemic * abx with ampicillin/SB * Patient was having some abdominal pain on the and an x-ray showed no ileus or small bowel obstruction. She states that it has been a while since she has had a bowel movement. Will add miralax. Sinus tachycardia * Improved * 04/01: Pt received 12mg of adenosine while I was in the room and underlying rhythm was sinus * on dilt gtt, weaned off. Will add metoprolol * CTA chest showed small pericardial effusion. Echo shows an EF 65% (no mention of pericardial effusion. ) Hypokalemia * resolved, now 5.3. * magnesium previously WNL. Paraplegia * secondary to transverse myelitis that she sustained over 20 years ago. This was a lower thoracic region. * manages self at home, but concern she may be too weak to return home right away. Ataxia * Patient states that she chronically gets it but more so in the morning but also when she gets tired. She is noticing it more since has been here and that it is probably attributable to her underlying illness as well as being in the hospital and probably poor quality sleep. I am unclear as to why she has this as her transverse myelitis was thoracic and not cervical. Would just maintain conservative management at this time. VTE prophylaxis: LMWH. Disposition: To be determined. Patient should be medically ready in 1 to 2 days but the other question remains if she is can to be able to go home or if she would require jail facility. Charges/Coding Visit Charges Inpatient E&M: 49901 Subs Hosp L2
[2024-04-03 08:19] LABS: Differential Comment SCANNED
[2024-04-03] MEDS: Enoxaparin 40 MG/0.4 ML Syringe SC (09:21)
[2024-04-03] MEDS: DULoxetine Hcl 30 MG Capsule PO (09:22)
[2024-04-03] MEDS: DULoxetine Hcl 60 MG Capsule PO (09:22)
[2024-04-03] MEDS: Naproxen 375 MG Tablet PO ×2 (09:22→19:32)
[2024-04-03] MEDS: Metoprolol Tartrate 25 MG Tablet PO ×2 (09:27→19:32)
[2024-04-03] MEDS: Ensure Plus High Protein 120 ML LIQUID PO ×3 (09:29→17:53)
[2024-04-03] MEDS: Polyethylene Glycol 3350 17 GM PACKET PO (09:51)
--- NOTE | 2024-04-03 21:03 | EKG12_ITS ---
Test Reason : TACHYCARDIA Blood Pressure : */* mmHG Vent. Rate : 152 BPM Atrial Rate : 152 BPM P-R Int : 148 ms QRS Dur : 74 ms QT Int : 226 ms P-R-T Axes : -16 61 -19 degrees QTcB Int : 359 ms Critical Test Result: High HR Sinus tachycardia Cannot rule out Anterior infarct , age undetermined Abnormal ECG When compared with ECG of 31-Mar-2024 12:48, MANUAL COMPARISON REQUIRED DATA IS UNCONFIRMED Confirmed by Khanh Parr ([id number]), technical editor HEAVEN ALBERTS ([id number]) on 04/04/2024 12:20:14 PM Referred By: Confirmed By: Khanh Parr
[2024-04-03] MEDS: cloNIDine HCl 0.1 MG Tablet PO (21:36)
[2024-04-03] MEDS: Metoprolol Tartrate 5 MG/5 ML Vial IV (22:19)
[2024-04-03] MEDS: 0.9% Saline Lock 10 ML Syringe IV (22:19)
[2024-04-03] MEDS: Acetaminophen 325 MG Tablet 650 MG PO (22:36)
[2024-04-03] MEDS: traZODone 100 MG Tablet PO (23:33)
[2024-04-04] MEDS: Ampicillin/Sulbactam 3 GM in 0.9% Normal Saline (100mL MB+) 100 ML IV ×3 (05:17→17:57)
[2024-04-04] MEDS: oxyCODONE 5 MG Tablet 15 MG PO ×2 (05:18→12:03)
[2024-04-04 05:20] VITALS: BP 106/72; PULSE 100; RESP 18; TEMP 36.7; O2SAT 97
[2024-04-04 06:43] LABS: Absolute Lymphocyte Count 0.68 X10^3/uL (0.83-4.51); Absolute Neutrophil Count 10.1 X10^3/uL (2.0-7.7); Basophil# 0.05 X10^3/uL; Basophil% 0.4 % (0-1); Eosinophil# 0.15 X10^3/uL; Eosinophils% 1.3 % (0-5); Hemoglobin 8.1 g/dL (12.0-15.0); Lymphocyte # 0.68 X10^3/ul (0.83-4.51); Lymphocyte % 5.8 % (19-41); Mean Corp Hgb Conc 33.8 g/dL (32-36); Mean Corpuscular Hgb 31.2 pg (27.0-32.0); Mean Corpuscular Volume 92.3 fL (81-99); Mean Platelet Vol. 10.9 fl (6.2-12.0); Monocyte# 0.53 X10^3/uL; Monocyte% 4.6 % (0-10); NRBC Flagged by Analyzer 0 % (0-5); Neutrophil # 10.06 X10^3/uL (2.7-7.7); Neutrophil % 86.4 % (47-70); POSITIVE MORPHOLOGY YES; Platelet Count 126 K/mm3 (150-450); RBC Distribution Width CV 13.8 % (11.6-14.6); RBC Distribution Width SD 46.4 fl (35.1-43.9); White Blood Count 11.6 K/mm3 (4.4-11.0)
[2024-04-04 07:01] LABS: Anion Gap 3 (5-15); BUN 21 mg/dL (7-18); BUN/Creat Ratio 68.2 RATIO (10-20); Chloride 106 mmol/L (98-107); Creatinine, Serum 0.31 mg/dL (0.55-1.02); EST Glomerular Filtration Rate 225 mL/min (>60); Est Glom Filt Rate - Afr Amer 272 mL/min (>60); Estimated Creatinine Clearance 47.36 ml/min; Glucose 111 mg/dL (74-106); Potassium 4.9 mmol/L (3.5-5.1); Sodium Level 137 mmol/L (136-145)
[2024-04-04 07:24] LABS: Differential Indicated SCAN CRITERIA MET
[2024-04-04] MEDS: Gabapentin 800 MG Tablet PO ×4 (08:37→21:07)
[2024-04-04 09:25] VITALS: BP 117/62; PULSE 113; RESP 16; TEMP 36.5; O2SAT 97
[2024-04-04] MEDS: DULoxetine Hcl 60 MG Capsule PO (09:30)
[2024-04-04] MEDS: Ferrous Gluconate 324 MG Tablet PO ×2 (09:30→17:16)
[2024-04-04] MEDS: DULoxetine Hcl 30 MG Capsule PO (09:30)
[2024-04-04 09:31] VITALS: PULSE 113
[2024-04-04] MEDS: Metoprolol Tartrate 25 MG Tablet PO ×2 (09:31→21:07)
[2024-04-04] MEDS: Enoxaparin 40 MG/0.4 ML Syringe SC (09:31)
[2024-04-04] MEDS: Naproxen 375 MG Tablet PO ×2 (09:32→21:11)
[2024-04-04] MEDS: Polyethylene Glycol 3350 17 GM PACKET PO (09:32)
[2024-04-04] MEDS: Ensure Plus High Protein 120 ML LIQUID PO ×3 (09:34→17:53)
--- NOTE | 2024-04-04 10:33 | CASEMGMT ---
Physician notified SW that patient would like to go to a SNF. SW met with patient. Introduced self and role at [facility]. Patient confirmed she would like to go to a SNF as she feels weak. Patient's first choice is [facility] then TCU. SW provided patient with a list of retirement facility providers including quality and resource use data and consistent with patient?s preferred geographic region, medical needs, and insurance network were provided from the [facility] Guide. SW told patient to review the list as [facility] only had a few openings and TCU is full. SW let patient know a referral will be sent to [facility] and SW will let her know when [facility] gets back to SW. SW asked Karla to please send a referral to [facility]. Pamela Lane HASHER OPERATOR MARIA DE JESUS
--- NOTE | 2024-04-04 11:13 | CASEMGMT ---
Addendum entered by Karla Hilton 04/04/24 11:40: [facility] has accepted pt. Karla Hilton DC Planning Asst. Original Note: Discharge Planning Referral sent via [facility] to [facility]. Karla Hilton DC Planning Asst.
[2024-04-04] MEDS: 0.9% Saline Lock 10 ML Syringe IV ×3 (12:03→17:54)
--- NOTE | 2024-04-04 12:25 | PCM.PN.HOSP ---
Reason for Visit Reason for Visit: Diagnoses Paraplegia, unspecified (03/31/24) Noninfective gastroenteritis and colitis, unspecified (03/31/24) Other constipation (03/31/24) Tachycardia, unspecified (03/31/24) Objective Data Objective Data Vital Signs: Vital Signs Temp Pulse Resp BP Pulse Ox O2 Del Method O2 Flow Rate 97.7 F L 113 H 16 117/62 97 Room Air 2 04/04/24 09:25 04/04/24 09:31 04/04/24 09:25 04/04/24 09:25 04/04/24 09:25 04/04/24 09:25 03/31/24 13:00 Oxygen Flow Rate (L/min) 2 Oxygen Delivery Method Room Air Weight: 47.2 kg Body Mass Index (BMI) 19.0 Intake & Output: Intake and Output for Last 24 Hours 04/02/24 04/03/24 04/04/24 23:59 23:59 23:59 Intake Total 2268.17 / 2268.17 836 / 1386 824 / 824 Output Total 1725 / 1725 2100 / 3300 2300 / 2300 Balance 543.17 / 543.17 -1264 / -1914 -1476 / -1476 Medical Nutrition Assessment Dietitian: Malnutrition Criteria Met Start: 04/01/24 14:17 Freq: Status: Active Protocol: Document 04/01/24 14:17 SB (Rec: 04/01/24 14:17 SB [id number]) Nutrition Malnutrition Evidence of Malnutrition Exists Yes Malnutrition (severe): Acute Illness/Injury Evidenced By Suboptimal Energy Intake ( Severe),Physical Changes ( Severe) Intake Problem Increased Nutrient Needs (specify) Etiology protein related to would healing Signs/Symptoms as evidenced by pressure injury on coccyx and left great toe Status Active Problem Clinical Problem Acute Disease or Injury Related Malnutrition Etiology severe related to inadequate oral intake Signs/Symptoms as evidenced by PO meeting <50 % of estimated nutrition needs x 1-2 weeks and severe muscle and fat wasting in clavicle, temples, and orbital regions. Status Active Problem Recommendation Dietitian Recommendations/Changes Continue regular diet and 120ml ensure plus high protein 4x daily with medpass, prefers vanilla. Will order 1 scoop of beneproten TID with meals. Will order fruit punch Leeroy BId with breakfast and dinner. Will adjust ONS, as needed. Will monitor weight trends. Reviewed and approved by Gracie Ken, RD, LD. Lab / Micro Data 04/04/24 06:06 04/04/24 06:06 Labs: Laboratory Results - last 24 hr 04/04/24 06:06: WBC 11.6 H, RBC 2.60 L, Hgb 8.1 L, Hct 24.0 L, MCV 92.3, MCH 31.2, MCHC 33.8, RDW Std Deviation 46.4 H, RDW Coeff of Pretty 13.8, Plt Count 126 L, MPV 10.9, Immature Gran % (Auto) 1.500 H, Neut % (Auto) 86.4 H, Lymph % (Auto) 5.8 L, [place] % (Auto) 4.6, Eos % (Auto) 1.3, Baso % (Auto) 0.4, Absolute Neuts (auto) 10.1 H, Absolute Lymphs (auto) 0.68 L, Nucleated RBC % 0, Sodium 137, Potassium 4.9, Chloride 106, Carbon Dioxide 28.0, Anion Gap 3 L, BUN 21 H, Creatinine 0.31 L, Estim Creat Clear Calc 47.36, Est GFR (MDRD) Af Amer 272, Est GFR (MDRD) Non-Af 225, BUN/Creatinine Ratio 68.2 H, Glucose 111 H, Calcium 9.0 Micro: Microbiology 03/31/24 12:59 Blood Culture (Wb) - Arm Right Blood Culture - Preliminary No growth in 48 hours. 03/31/24 12:18 Blood Culture (Wb) - Right Forearm Blood Culture - Preliminary No growth in 48 hours. 03/31/24 12:49 Urine, Catheterized Urine Culture - Final Escherichia coli 03/31/24 22:45 Stool Enteric Bacteriology - Final 03/31/24 12:49 Mucosa - Nose SARS-CoV-2, Influenza & RSV (PCR) - Final Rhythm Strip Rhythm Strip: Sinus Tach Assessment & Plan Assessment/Plan (1) Acute colitis: PLAN: Plan Patient is a 73-year-old lady with 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 1. Acute metabolic encephalopathy ? Due to combination of colitis as well as UTI admitted to monitored bed with treatment and underlying etiology 2. Acute colitis ? CT of the abdomen and pelvis obtained on admission did show Rectal wall thickening with perirectal stranding consistent with acute proctitis or proctocolitis. . No bowel obstruction. Moderate colonic stool predominantly in the right colon. Patient managed with Unasyn 2. Acute cystitis with E. coli present on admission ? Managed with Unasyn #3. Sinus tachycardia ? Patient has had runs of PSVT did receive adenosine. Seen in consultation by cardiology echo obtained demonstrated EF of 65% patient was on diltiazem infusion has since been weaned off started on metoprolol 4. Anemia ? Secondary to chronic disorder monitoring H&H and transfuse if patient becomes symptomatic or hemoglobin falls below 7. Patient anemia probably contributing to patient's sinus tachycardia with patient deemed to be symptomatic an order was given for patient to be transfused 1 unit PRBC after discussion with family 5. Paraplegia ? Secondary to transverse myelitis patient is on home with home health 6. Physical deconditioning ? Requested for PT OT eval and social work msw to assist with discharge planning 7. DVT prophylaxis ? On enoxaparin Time spent in the patient's overall evaluation,decision-making process, review of diagnostic data, adjustment of management, discussion with other providers, nursing nursing and ancillary staff involved in patient's care documentation, 50 Minutes Charges/Coding Visit Charges Inpatient E&M: [address] [facility] Hosp L3
[2024-04-04 12:59] LABS: Iron 18 ug/dL (50-170); Iron Binding Capacity,Total 125 ug/dL (250-450); PERCENT IRON SATURATION 14.4 % (15.0-55.0)
[2024-04-04 13:04] LABS: Vitamin B12 853 pg/mL (211-911)
[2024-04-04] MEDS: Magnesium Citrate 300 ML PO (13:21)
[2024-04-04] MEDS: Bisacodyl 10 MG Suppository RC (13:21)
--- NOTE | 2024-04-04 13:40 | CASEMGMT ---
SHAVONNE notified patient that [facility] is able to take her at discharge. Patient said her daughter should be able to transport her via private vehicle. Plan: [facility] pending patient being medically ready. Pamela PRETTY
[2024-04-04] MEDS: Sodium Ferric Gluconat 250 MG in 0.9% Normal Saline 250 ML 135 MG IV (15:52)
[2024-04-04 15:54] VITALS: BP 115/65; PULSE 110; RESP 16; TEMP 37; O2SAT 100
--- NOTE | 2024-04-04 16:32 | CHAPLAIN ---
Type of Pastoral Visit _x__ Initial Visit ___ Follow-up Visit ___ On-call Visit ___ General Patient Visit ___ Spiritual Assessment ___ Family Conference ___ Bereavement ___ Rapid Response ___ Code Blue ___ Other (describe below) Pastoral Care Referral From _x__ Patient ___ Family ___ Nurse ___ Physician ___ Clothing And Textiles Teacher ___ Foil Cutter ___ Other (describe below) Sacrament/Intervention _x__ Active listening ___ Anointing ___ Mosque ___ Bereavement ___ Communion _x__ Dawna exploration ___ _x__ Life review _x__ Prayer ___ Reconciliation ___ Sacrament of Sick ___ Supportive presence ___ Wedding ___ Other (describe below) Pastoral Comments patient expresses herself and her family; pt has good connection to support from cheondoism and family; pt has detention health issues but presents self with a good outlook; pt welcomes prayer for support
[2024-04-04 21:07] VITALS: PULSE 113
[2024-04-04] MEDS: traZODone 100 MG Tablet PO (21:07)
[2024-04-04] MEDS: cloNIDine HCl 0.1 MG Tablet PO (21:07)
[2024-04-04 21:14] VITALS: BP 113/60; PULSE 113; RESP 14; TEMP 36.6; O2SAT 93
[2024-04-05 04:14] VITALS: BP 114/80; PULSE 108; RESP 14; TEMP 36.4; O2SAT 93
[2024-04-05] MEDS: Ampicillin/Sulbactam 3 GM in 0.9% Normal Saline (100mL MB+) 100 ML IV ×3 (05:46→13:41)
[2024-04-05] MEDS: oxyCODONE 5 MG Tablet 15 MG PO ×2 (05:46→12:30)
[2024-04-05 06:39] LABS: Absolute Neutrophil Count 14.1 X10^3/uL (2.0-7.7); Basophil# 0.07 X10^3/uL; Basophil% 0.4 % (0-1); Eosinophil# 0.16 X10^3/uL; Hematocrit 23.9 % (37-47); Lymphocyte % 3.7 % (19-41); Mean Corp Hgb Conc 33.5 g/dL (32-36); Mean Corpuscular Hgb 31.3 pg (27.0-32.0); Mean Corpuscular Volume 93.4 fL (81-99); Monocyte# 0.68 X10^3/uL; Monocyte% 4.2 % (0-10); NRBC Flagged by Analyzer 0 % (0-5); Neutrophil # 14.06 X10^3/uL (2.7-7.7); Neutrophil % 87.8 % (47-70); POSITIVE DIFFERENTIAL YES; POSITIVE MORPHOLOGY YES; Platelet Count 155 K/mm3 (150-450); RBC Distribution Width CV 14.1 % (11.6-14.6); RBC Distribution Width SD 47.7 fl (35.1-43.9); Red Blood Count 2.56 M/mm3 (4.2-5.4)
[2024-04-05 06:52] LABS: Differential Indicated SCAN CRITERIA MET
--- NOTE | 2024-04-05 07:23 | PCM.PN.HOSP ---
Reason for Visit Reason for Visit: Diagnoses Paraplegia, unspecified (03/31/24) Noninfective gastroenteritis and colitis, unspecified (03/31/24) Other constipation (03/31/24) Tachycardia, unspecified (03/31/24) Subjective Subjective Patient seen did receive parenteral iron. Case was discussed with patient's daughter heart rates relatively improved. Patient also had tremors at rest liver function test came back normal. Plan will be to assess patient for possible discharge Objective Data Objective Data Vital Signs: Vital Signs Temp Pulse Resp BP Pulse Ox O2 Del Method O2 Flow Rate 97.6 F L 108 H 14 114/80 93 Room Air 2 04/05/24 04:14 04/05/24 04:14 04/05/24 04:14 04/05/24 04:14 04/05/24 04:14 04/05/24 04:14 03/31/24 13:00 Oxygen Flow Rate (L/min) 2 Oxygen Delivery Method Room Air Weight: 47.2 kg Body Mass Index (BMI) 19.0 Intake & Output: Intake and Output for Last 24 Hours 04/03/24 04/04/24 04/05/24 23:59 23:59 23:59 Intake Total 836 / 1386 1318 / 1318 224 / 224 Output Total 2100 / 3300 4325 / 4325 1000 / 1000 Balance -1264 / -1914 -3007 / -3007 -776 / -776 Medical Nutrition Assessment Dietitian: Malnutrition Criteria Met Start: 04/01/24 14:17 Freq: Status: Active Protocol: Document 04/01/24 14:17 SB (Rec: 04/01/24 14:17 SB [id number]) Nutrition Malnutrition Evidence of Malnutrition Exists Yes Malnutrition (severe): Acute Illness/Injury Evidenced By Suboptimal Energy Intake ( Severe),Physical Changes ( Severe) Intake Problem Increased Nutrient Needs (specify) Etiology protein related to would healing Signs/Symptoms as evidenced by pressure injury on coccyx and left great toe Status Active Problem Clinical Problem Acute Disease or Injury Related Malnutrition Etiology severe related to inadequate oral intake Signs/Symptoms as evidenced by PO meeting <50 % of estimated nutrition needs x 1-2 weeks and severe muscle and fat wasting in clavicle, temples, and orbital regions. Status Active Problem Recommendation Dietitian Recommendations/Changes Continue regular diet and 120ml ensure plus high protein 4x daily with medpass, prefers vanilla. Will order 1 scoop of beneproten TID with meals. Will order fruit punch Leeroy BId with breakfast and dinner. Will adjust ONS, as needed. Will monitor weight trends. Reviewed and approved by Gracie Ken RD, LD. Lab / Micro Data 04/05/24 06:13 04/05/24 06:13 Labs: Laboratory Results - last 24 hr 04/04/24 06:06: WBC 11.6 H, RBC 2.60 L, Hgb 8.1 L, Hct 24.0 L, MCV 92.3, MCH 31.2, MCHC 33.8, RDW Std Deviation 46.4 H, RDW Coeff of Pretty 13.8, Plt Count 126 L, MPV 10.9, Immature Gran % (Auto) 1.500 H, Neut % (Auto) 86.4 H, Lymph % (Auto) 5.8 L, [place] % (Auto) 4.6, Eos % (Auto) 1.3, Baso % (Auto) 0.4, Absolute Neuts (auto) 10.1 H, Absolute Lymphs (auto) 0.68 L, Nucleated RBC % 0, Iron 18 L, TIBC 125 L, Iron Saturation 14.4 L, Vitamin B12 853 04/04/24 12:47: Blood Type A NEGATIVE, Antibody Screen NEGATIVE, Crossmatch See Detail 04/05/24 06:13: WBC 16.0 H, RBC 2.56 L, Hgb 8.0 L, Hct 23.9 L, MCV 93.4, MCH 31.3, MCHC 33.5, RDW Std Deviation 47.7 H, RDW Coeff of Pretty 14.1, Plt Count 155, MPV 11.0, Immature Gran % (Auto) 2.900 H, Neut % (Auto) 87.8 H, Lymph % (Auto) 3.7 L, [place] % (Auto) 4.2, Eos % (Auto) 1.0, Baso % (Auto) 0.4, Absolute Neuts (auto) 14.1 H, Absolute Lymphs (auto) 0.60 L, Nucleated RBC % 0 Micro: Microbiology 03/31/24 12:59 Blood Culture (Wb) - Arm Right Blood Culture - Final No growth in 5 days. 03/31/24 12:18 Blood Culture (Wb) - Right Forearm Blood Culture - Final No growth in 5 days. 03/31/24 12:49 Urine, Catheterized Urine Culture - Final Escherichia coli 03/31/24 22:45 Stool Enteric Bacteriology - Final 03/31/24 12:49 Mucosa - Nose SARS-CoV-2, Influenza & RSV (PCR) - Final Rhythm Strip Rhythm Strip: Sinus Tach Physical Exam Narrative GENERAL: cooperative HEENT: Atraumatic; normocephalic EYES; Anicteric, Normal Conjunctiva NECK; supple, normal thyroid, RESPIRATORY: Diminished to auscultation CARDIOVASCULAR: Regular S1 S2, GI: soft, normoactive bowel sounds, : No Renal angle tenderness; EXTREMITIES: No edema, no clubbing, MUSCULOSKELETAL: no muscle wasting NEURO: Awake; no lateralizing signs. 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 1. Acute metabolic encephalopathy ? Due to combination of colitis as well as UTI admitted to monitored bed with treatment and underlying etiology 2. Acute colitis ? CT of the abdomen and pelvis obtained on admission did show Rectal wall thickening with perirectal stranding consistent with acute proctitis or proctocolitis. . No bowel obstruction. Moderate colonic stool predominantly in the right colon. Patient managed with Unasyn ? Plan will be to discharge patient on Cipro and Flagyl 2. Acute cystitis with E. coli present on admission ? Managed with Unasyn ? Patient will be discharged on Cipro 3. Sinus tachycardia ? Patient has had runs of PSVT did receive adenosine. Seen in consultation by cardiology echo obtained demonstrated EF of 65% patient was on diltiazem infusion has since been weaned off started on metoprolol 4. Anemia ? Secondary to chronic disorder monitoring H&H and transfuse if patient becomes symptomatic or hemoglobin falls below 7. Patient anemia probably contributing to patient's sinus tachycardia with patient deemed to be symptomatic an order was given for patient to be transfused 1 unit PRBC after discussion with patient ? 04/05/2024 patient to be infused with 200 mg of iron sucrose 5. Paraplegia ? Secondary to transverse myelitis patient is on home with home health 6. Physical deconditioning ? Requested for PT OT eval and psychologist social to assist with discharge planning 7. DVT prophylaxis ? On enoxaparin #8. Severe malnutrition. Related to: inadequate oral intake ; As evidenced by: PO meeting <50% of estimated nutrition needs x 1-2 weeks and severe muscle and fat wasting in clavicle, temples, and orbital regions.. Patient seen in consultation by dietary recommendations reviewed Time spent in the patient's overall evaluation,decision-making process, review of diagnostic data, adjustment of management, discussion with other providers, nursing nursing and ancillary staff involved in patient's care documentation, 40 Minutes Charges/Coding Visit Charges Inpatient E&M: 53289 Subs Hosp L2
[2024-04-05 07:47] LABS: Anisocytosis 1+
[2024-04-05 07:57] LABS: Anion Gap 3 (5-15); BUN 22 mg/dL (7-18); BUN/Creat Ratio 74.1 RATIO (10-20); Calcium,Total 8.5 mg/dL (8.5-10.1); Chloride 105 mmol/L (98-107); EST Glomerular Filtration Rate 235 mL/min (>60); Est Glom Filt Rate - Afr Amer 284 mL/min (>60); Estimated Creatinine Clearance 47.36 ml/min; Glucose 114 mg/dL (74-106); Phosphorus 4.2 mg/dL (2.5-4.9); Potassium 4.8 mmol/L (3.5-5.1); Sodium Level 137 mmol/L (136-145)
[2024-04-05] MEDS: Ferrous Gluconate 324 MG Tablet PO (08:39)
[2024-04-05] MEDS: Gabapentin 800 MG Tablet PO ×2 (08:39→12:30)
[2024-04-05 09:56] LABS: AST(SGOT) 27 U/L (15-37); Alanine Aminotransfer ALT/SGPT 25 U/L (13-56); Albumin, Serum 1.5 g/dL (3.2-5.0); Alkaline Phosphatase 145 U/L (45-117); Bilirubin, Direct 0.18 mg/dL (0.00-0.30); Globulin 2.9 g/dL (2.2-4.2); Protein, Total 4.4 g/dL (6.4-8.2)
[2024-04-05 10:48] VITALS: BP 107/66; PULSE 116; RESP 16; TEMP 36.7; O2SAT 96
[2024-04-05 10:50] VITALS: BP 107/66; PULSE 116
[2024-04-05] MEDS: Metoprolol Tartrate 25 MG Tablet PO (10:50)
[2024-04-05] MEDS: DULoxetine Hcl 60 MG Capsule PO (10:50)
[2024-04-05] MEDS: Enoxaparin 40 MG/0.4 ML Syringe SC (10:50)
[2024-04-05] MEDS: DULoxetine Hcl 30 MG Capsule PO (10:50)
[2024-04-05] MEDS: Naproxen 375 MG Tablet PO (10:51)
[2024-04-05] MEDS: Polyethylene Glycol 3350 17 GM PACKET PO (10:51)
[2024-04-05] MEDS: Ensure Plus High Protein 120 ML LIQUID PO ×2 (10:56→13:42)
--- NOTE | 2024-04-05 11:08 | DS.PCM_ITS ---
Providers Date of Admission: 03/31/24 Date of Discharge: 04/05/24 Primary Care Physician: Dr. 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 1. Acute metabolic encephalopathy ? Due to combination of colitis as well as UTI admitted to monitored bed with treatment and underlying etiology 2. Acute colitis ? CT of the abdomen and pelvis obtained on admission did show Rectal wall thickening with perirectal stranding consistent with acute proctitis or proctocolitis. . No bowel obstruction. Moderate colonic stool predominantly in the right colon. Patient managed with Unasyn ? Plan will be to discharge patient on Cipro and Flagyl 2. Acute cystitis with E. coli present on admission ? Managed with Unasyn ? Patient will be discharged on Cipro 3. Sinus tachycardia ? Patient has had runs of PSVT did receive adenosine. Seen in consultation by cardiology echo obtained demonstrated EF of 65% patient was on diltiazem infusion has since been weaned off started on metoprolol 4. Anemia ? Secondary to chronic disorder monitoring H&H and transfuse if patient becomes symptomatic or hemoglobin falls below 7. Patient anemia probably contributing to patient's sinus tachycardia with patient deemed to be symptomatic an order was given for patient to be transfused 1 unit PRBC after discussion with patient ? 04/05/2024 patient to be infused with 200 mg of iron sucrose 5. Paraplegia ? Secondary to transverse myelitis patient is on home with home health 6. Physical deconditioning ? Requested for PT OT eval and social welfare administrator to assist with discharge planning 7. DVT prophylaxis ? On enoxaparin #8. Severe malnutrition. Related to: inadequate oral intake ; As evidenced by: PO meeting <50% of estimated nutrition needs x 1-2 weeks and severe muscle and fat wasting in clavicle, temples, and orbital regions.. Patient seen in consultation by dietary recommendations reviewed Time spent in the patient's overall evaluation,decision-making process, review of diagnostic data, adjustment of management, discussion with other providers, nursing nursing and ancillary staff involved in patient's care documentation, 40 Minutes Medications at Discharge Home Medications trazodone 100 mg tablet 100 mg PO QHS #30 TABLETS 09/14/15 polyethylene glycol 3350 17 gram oral powder packet 17 g PO DAILY PRN PRN Constipation 12/02/18 gabapentin 800 mg tablet 800 mg PO 4X/DAYCM #30 tabs 04/21/19 clonidine HCl 0.2 mg tablet 0.2 mg PO QHS 09/04/20 duloxetine 60 mg capsule,delayed release (Cymbalta) 60 mg PO DAILY 01/14/21 ferrous gluconate 324 mg (38 mg iron) tablet 324 mg PO BID #60 tabs 02/19/22 oxycodone 15 mg tablet 15 mg PO Q6H Pain 09/19/22 ondansetron HCl 4 mg tablet 4 mg PO TID PRN PRN nausea and vomiting 12/16/23 duloxetine 30 mg capsule,delayed release 30 mg PO DAILY 03/31/24 ciprofloxacin HCl 500 mg tablet 500 mg PO BID #10 tabs 04/05/24 food supplemt, lactose-reduced 0.08 gram-1.5 kcal/mL oral liquid (Ensure Plus High Protein) 120 ml PO 4X/DAY #0 mL 04/05/24 metoprolol tartrate 25 mg tablet 25 mg PO BID #0 tabs 04/05/24 metronidazole 500 mg tablet 500 mg PO TID #15 tabs 04/05/24 oxycodone 5 mg tablet 15 mg (3 x 5 mg) PO Q6 2 days #8 tabs 04/05/24 Physical Exam Narrative GENERAL: cooperative HEENT: Atraumatic; normocephalic EYES; Anicteric, Normal Conjunctiva NECK; supple, normal thyroid, RESPIRATORY: Diminished to auscultation CARDIOVASCULAR: Regular S1 S2, GI: soft, normoactive bowel sounds, : No Renal angle tenderness; EXTREMITIES: No edema, no clubbing, MUSCULOSKELETAL: no muscle wasting NEURO: Awake; no lateralizing signs. SKIN: No Rash PSYCH; Flat affect Medical Records Data Medical Nutrition Assessment Dietitian: Malnutrition Criteria Met Start: 04/01/24 14:17 Freq: Status: Active Protocol: Document 04/01/24 14:17 SB (Rec: 04/01/24 14:17 SB [id number]) Nutrition Malnutrition Evidence of Malnutrition Exists Yes Malnutrition (severe): Acute Illness/Injury Evidenced By Suboptimal Energy Intake ( Severe),Physical Changes ( Severe) Intake Problem Increased Nutrient Needs (specify) Etiology protein related to would healing Signs/Symptoms as evidenced by pressure injury on coccyx and left great toe Status Active Problem Clinical Problem Acute Disease or Injury Related Malnutrition Etiology severe related to inadequate oral intake Signs/Symptoms as evidenced by PO meeting <50 % of estimated nutrition needs x 1-2 weeks and severe muscle and fat wasting in clavicle, temples, and orbital regions. Status Active Problem Recommendation Dietitian Recommendations/Changes Continue regular diet and 120ml ensure plus high protein 4x daily with medpass, prefers vanilla. Will order 1 scoop of beneproten TID with meals. Will order fruit punch Leeroy BId with breakfast and dinner. Will adjust ONS, as needed. Will monitor weight trends. Reviewed and approved by Gracie Ken, RD, LD. Weight / BMI Weight Weight: 47.2 kg Body Mass Index (BMI) 19.0 ABG / Lab / Microbiology Data 04/05/24 06:13 04/05/24 06:13 Laboratory: Laboratory Results - last 24 hr 04/04/24 06:06: Iron 18 L, TIBC 125 L, Iron Saturation 14.4 L, Vitamin B12 853 04/04/24 12:47: Blood Type A NEGATIVE, Antibody Screen NEGATIVE, Crossmatch See Detail 04/05/24 06:13: WBC 16.0 H, RBC 2.56 L, Hgb 8.0 L, Hct 23.9 L, MCV 93.4, MCH 31.3, MCHC 33.5, RDW Std Deviation 47.7 H, RDW Coeff of Pretty 14.1, Plt Count 155, MPV 11.0, Immature Gran % (Auto) 2.900 H, Neut % (Auto) 87.8 H, Lymph % (Auto) 3.7 L, [place] % (Auto) 4.2, Eos % (Auto) 1.0, Baso % (Auto) 0.4, Absolute Neuts (auto) 14.1 H, Absolute Lymphs (auto) 0.60 L, Nucleated RBC % 0, Anisocytosis 1+, Sodium 137, Potassium 4.8, Chloride 105, Carbon Dioxide 30.0, Anion Gap 3 L, BUN 22 H, Creatinine 0.30 L, Estim Creat Clear Calc 47.36, Est GFR (MDRD) Af Amer 284, Est GFR (MDRD) Non-Af 235, BUN/Creatinine Ratio 74.1 H, Glucose 114 H, Calcium 8.5, Phosphorus 4.2, Magnesium 2.0, Total Bilirubin 0.30, Direct Bilirubin 0.18, AST 27, ALT 25, Alkaline Phosphatase 145 H, Total Protein 4.4 L, Albumin 1.5 L, Globulin 2.9 04/05/24 09:40: Ammonia 13.0 Microbiology: Microbiology 04/05/24 07:08 Stool Stool Occult Blood (JULIA) - Final Occult Blood Positive 03/31/24 12:59 Blood Culture (Wb) - Arm Right Blood Culture - Final No growth in 5 days. 03/31/24 12:18 Blood Culture (Wb) - Right Forearm Blood Culture - Final No growth in 5 days. 03/31/24 12:49 Urine, Catheterized Urine Culture - Final Escherichia coli 03/31/24 22:45 Stool Enteric Bacteriology - Final 03/31/24 12:49 Mucosa - Nose SARS-CoV-2, Influenza & RSV (PCR) - Final D/C Instructions Discharge Diet: No restrictions Discharge Activity: Return to Normal Activity Call your doctor if you observe: Fever of 101 or Higher, Shortness of breath, Fainting spells and Chest pain DC O2, CPAP, BIPAP Needs Additional Home O2 Discharge instructions: No DC home with Oxygen: No Meaningful Use Info Meaningful Use Meaningful Use Diagnoses (Choose all that apply): None applicable Ischemic Stroke Statin Dosing Therapy Reference: STATIN DOSE THERAPY REFERENCE: * Patients > 75 years receive moderate or high dose statin therapy. * Patients 75 years or YOUNGER should receive HIGH intensity statin dose unless contraindicated. You will be required to document reason for non-treatment if statin daily dose does not meet guidelines. HIGH DOSE STATIN THERAPY DAILY Atorvastatin > than or = to 40 mg Rosuvastatin > than or = to 20 mg Amlodipine + Atorvastatin > than or = to 2.5/40 mg Ezetimibe + Simvastatin 10/80 mg Simvastatin 80mg Discharge Plan Admission Admit Date/Time: 03/31/24 17:29 Attending Provider: Ciaran Garcia Primary Care Provider: Casie Trevizo Consulting Providers: Silvano Morales; Gonzalez Ashby; Carlos Munoz Discharge Orders/Prescriptions Prescriptions: New oxycodone 5 mg Tablet 15 mg PO Q6 2 Days Qty: 8 0RF Ensure Plus High Protein 0.08 gram-1.5 kcal/mL Liquid 120 ml PO 4X/DAY Qty: 0 0RF metoprolol tartrate 25 mg Tablet 25 mg PO BID Qty: 0 0RF ciprofloxacin HCl 500 mg tablet 500 mg PO BID Qty: 10 0RF metronidazole 500 mg tablet 500 mg PO TID Qty: 15 0RF Continued trazodone 100 MG tablet 100 mg PO QHS Qty: 30 0RF polyethylene glycol 3350 17 GM packet 17 g PO DAILY PRN PRN (Reason: Constipation) gabapentin 800 MG tablet 800 mg PO 4X/DAYCM Qty: 30 0RF clonidine HCl 0.2 mg Tablet 0.2 mg PO QHS duloxetine [Cymbalta] 60 mg Capsule,Delayed Release(Dr/Ec) 60 mg PO DAILY Rx Instructions: WITH 30 MG TOTAL DAILY DOSE 90MG oxycodone 15 mg tablet 15 mg PO Q6H duloxetine 30 mg capsule,delayed release(DR/EC) 30 mg PO DAILY Rx Instructions: WITH 60MG TOTAL DAILY DOSE 90MG ondansetron HCl 4 mg tablet 4 mg PO TID PRN PRN (Reason: nausea and vomiting) ferrous gluconate 324 mg (38 mg iron) tablet 324 mg PO BID Qty: 60 0RF Discontinued naproxen 375 MG tablet 375 mg PO BID Patient Comments: PAIN/INFLAMMATION Referrals / Follow Up: Casie Trevizo MD [Primary Care Provider] - Within 1 Week Disposition Disposition (needs filled in before D/C Order can be placed): Long-Term Facility
--- NOTE | 2024-04-05 11:08 | PCM.TXEXTCAR ---
Diet Diet Order/Speech Therapy: 03/31/24 18:07 Diet: Regular - General Food consistency:: Regular Liquid Consistency:: Regular/Thin Type of Dietary Supplement:: 1 scoop beneprotein tid Diet Comments: fruit punch leeroy w/ lunch and dinner DC O2, CPAP, BIPAP needs Additional Home O2 Discharge instructions: No Wound(s) Left Great Toe: Wound Type: Pressure Injury Coccyx: Wound Type: Pressure Injury Dressing Change: foam dressing left foot: Wound Type: Neuropathic/Diabetic Foot Ulcer Dressing Change: Amisha Problem/Diagnosis (1) Acute colitis: Status: Acute Code(s): K52.9 - Noninfective gastroenteritis and colitis, unspecified Plan Patient is a 73-year-old lady with 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 1. Acute metabolic encephalopathy ? Due to combination of colitis as well as UTI admitted to monitored bed with treatment and underlying etiology 2. Acute colitis ? CT of the abdomen and pelvis obtained on admission did show Rectal wall thickening with perirectal stranding consistent with acute proctitis or proctocolitis. . No bowel obstruction. Moderate colonic stool predominantly in the right colon. Patient managed with Unasyn ? Plan will be to discharge patient on Cipro and Flagyl 2. Acute cystitis with E. coli present on admission ? Managed with Unasyn ? Patient will be discharged on Cipro 3. Sinus tachycardia ? Patient has had runs of PSVT did receive adenosine. Seen in consultation by cardiology echo obtained demonstrated EF of 65% patient was on diltiazem infusion has since been weaned off started on metoprolol 4. Anemia ? Secondary to chronic disorder monitoring H&H and transfuse if patient becomes symptomatic or hemoglobin falls below 7. Patient anemia probably contributing to patient's sinus tachycardia with patient deemed to be symptomatic an order was given for patient to be transfused 1 unit PRBC after discussion with patient ? 04/05/2024 patient to be infused with 200 mg of iron sucrose 5. Paraplegia ? Secondary to transverse myelitis patient is on home with home health 6. Physical deconditioning ? Requested for PT OT eval and manager social services to assist with discharge planning 7. DVT prophylaxis ? On enoxaparin #8. Severe malnutrition. Related to: inadequate oral intake ; As evidenced by: PO meeting <50% of estimated nutrition needs x 1-2 weeks and severe muscle and fat wasting in clavicle, temples, and orbital regions.. Patient seen in consultation by dietary recommendations reviewed Time spent in the patient's overall evaluation,decision-making process, review of diagnostic data, adjustment of management, discussion with other providers, nursing nursing and ancillary staff involved in patient's care documentation, 40 Minutes Allergies/Procedures Done in Hospital Allergies ziconotide (From Prialt) Allergy (Severe, Verified 01/05/24 12:52) Other seizure like activity Type of Care/Length of Stay Estimated LOS: Convalescent Care Less Than 30 days Type of Care Needed: Skilled Rehab Potential: Fair Prognosis: Fair Additional Orders/Day of Discharge Day of Discharge: 04/05/24 Dietary and Speech Recommendations Dietitian Recommendations/Changes: Continue regular diet and 120ml ensure plus high protein 4x daily with medpass, prefers vanilla. Continue 1 scoop of beneproten TID with meals and fruit punch Leeroy BId with breakfast and dinner. Will adjust ONS, as needed. Recommend appetite stimulant to increase oral intake. Will monitor weight trends. Reviewed and approved by Gracie eKn RD, LD. Discharge Plan Admission Admit Date/Time: 03/31/24 17:29 Attending Provider: Ciaran Garcia Primary Care Provider: Casie Trevizo Consulting Providers: Silvano Morales; Gonzalez Ashby; Carlos Munoz Discharge Orders/Prescriptions Prescriptions: New oxycodone 5 mg Tablet 15 mg PO Q6 2 Days Qty: 8 0RF Ensure Plus High Protein 0.08 gram-1.5 kcal/mL Liquid 120 ml PO 4X/DAY Qty: 0 0RF metoprolol tartrate 25 mg Tablet 25 mg PO BID Qty: 0 0RF ciprofloxacin HCl 500 mg tablet 500 mg PO BID Qty: 10 0RF metronidazole 500 mg tablet 500 mg PO TID Qty: 15 0RF Continued trazodone 100 MG tablet 100 mg PO QHS Qty: 30 0RF polyethylene glycol 3350 17 GM packet 17 g PO DAILY PRN PRN (Reason: Constipation) gabapentin 800 MG tablet 800 mg PO 4X/DAYCM Qty: 30 0RF clonidine HCl 0.2 mg Tablet 0.2 mg PO QHS duloxetine [Cymbalta] 60 mg Capsule,Delayed Release(Dr/Ec) 60 mg PO DAILY Rx Instructions: WITH 30 MG TOTAL DAILY DOSE 90MG oxycodone 15 mg tablet 15 mg PO Q6H duloxetine 30 mg capsule,delayed release(DR/EC) 30 mg PO DAILY Rx Instructions: WITH 60MG TOTAL DAILY DOSE 90MG ondansetron HCl 4 mg tablet 4 mg PO TID PRN PRN (Reason: nausea and vomiting) ferrous gluconate 324 mg (38 mg iron) tablet 324 mg PO BID Qty: 60 0RF Discontinued naproxen 375 MG tablet 375 mg PO BID Patient Comments: PAIN/INFLAMMATION Referrals / Follow Up: Casie Trevizo MD [Primary Care Provider] - Within 1 Week Disposition Disposition (needs filled in before D/C Order can be placed): Senior Living Facility
[2024-04-05] MEDS: Sodium Ferric Gluconat/Sucrose 250 MG in 0.9% Normal Saline (250mL Bag) 250 ML 135 MG IV (11:09)
[2024-04-05] MEDS: 0.9% Saline Lock 10 ML Syringe IV ×2 (11:10→13:41)
--- NOTE | 2024-04-05 12:02 | CASEMGMT ---
Patient is ready for discharge to [facility]. SW completed a 7000 in [employer] system. Patient's daughter will transport patient via private vehicle. Plan: d/c to [facility] under skilled level of care on a convalescent stay. Family will transport via private vehicle. Pamela Lane PC ANALYSTVince PRETTY
--- NOTE | 2024-04-05 12:08 | CASEMGMT ---
Discharge Planning Discharge orders, signed med list, and transport time sent to [facility]. Pts daughter will transport after she is done with work (between 3-4p). Nursing and SW updated. Karla Hilton DC Planning Asst.
[2024-04-05 14:44] VITALS: BP 106/67; PULSE 102; RESP 16; TEMP 36.7; O2SAT 94
--- NOTE | 2024-04-05 15:39 | NURSING ---
Called in report to Julianna from [facility] at 15:30
== END 2024-04-05 17:33 | disposition skilled nursing facility (03) | DRG 698 ==
LOC: ED 16:35 → PCU 17:40
PROVIDERS: Internal Medicine Cardiovascular Disease; Admitting Provider Internal Medicine; Emergency Provider Surgery; PCP Family Medicine; Visit Provider Internal Medicine
DX: T83.518A Infection and inflammatory reaction due to other urinary catheter, initial encounter (principal); G93.41 Metabolic encephalopathy; E43 Unspecified severe protein-calorie malnutrition; G37.3 Acute transverse myelitis in demyelinating disease of central nervous system; G82.20 Paraplegia, unspecified; K59.2 Neurogenic bowel, not elsewhere classified; E87.1 Hypo-osmolality and hyponatremia; N30.00 Acute cystitis without hematuria; Z68.1 Body mass index [BMI] 19.9 or less, adult; D64.9 Anemia, unspecified; I47.9 Paroxysmal tachycardia, unspecified; K52.9 Noninfective gastroenteritis and colitis, unspecified; E87.6 Hypokalemia; K59.09 Other constipation; G89.4 Chronic pain syndrome; Z79.891 Long term (current) use of opiate analgesic; Z87.440 Personal history of urinary (tract) infections; B96.20 Unspecified Escherichia coli [E. coli] as the cause of diseases classified elsewhere
CPT/HCPCS: 11042; 36415; 51702; 71045; 71275; 73521; 74018; 74177; 80048; 80053; 80076; 81001; 82140; 82274; 82607; 82962; 83540; 83550; 83605; 83735; 83880; 84100; 84443; 84484; 85025; 85379; 85610; 85730; 86850; 86900; 86901; 86920; 86922; 87040; 87077; 87086; 87088; 87186; 87506; 87631; 93005; 93306; 97161; 97166; 97530; 97535; 97802; 97803; 99285; Q9967; A4216; J0153; J0295; J0696; J2405; J2916

== ENCOUNTER 2024-04-13 13:10 | Emergency (ER) | payer MEDICARE, OTHER, SELFPAY ==
[2024-04-13] VITALS (9 sets, daily range): BP systolic 96–117; BP diastolic 46–78; PULSE 77–89; RESP 16–19; TEMP 36.8–37.2; O2SAT 93–100; BMI 20.2
--- NOTE | 2024-04-13 14:18 | CT_ITS ---
INDICATION: sacral wound, ?osteomyelitis EXAMINATION: CT BONE - CT Pelvis W/ Contrast Injection TECHNIQUE: Helically acquired images were obtained of the pelvis. 2-D reformats were performed by the technologist. A radiation dose optimization technique was used for this scan. IV Contrast dosage and agent: 100 cc [id number] COMPARISON: 03/31/2024 FINDINGS: SOFT TISSUES: Extensive subcutaneous soft tissue edema/cellulitis about the posterior pelvis and sacrum with interval development of well-defined and peripherally enhancing fluid and gas bubble collection to the right of the sacrum extending into the right ischiorectal fossa measuring 8.5 cm transverse by 8.3 cm AP by 8 cm craniocaudal. Decreasing perirectal wall thickening. Extensive colonic fecal retention. BONES/JOINTS: Stable chronic fracture right femur. No destructive osseous changes. CT/Pelvis WITH IV Contrast IMPRESSION: Large right-sided subcutaneous abscess collection extending into the right ischiorectal fossa. Extensive pelvic soft tissue edema/cellulitis. Decreasing perirectal soft tissue thickening. Colonic fecal contents consistent with clinical constipation. No evidence of destructive cortical lesions. Electronically Signed: Héctor Arita MD at 17:10 EST ,
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
[2024-04-13 15:23] LABS: Absolute Lymphocyte Count 0.56 X10^3/uL (0.83-4.51); Absolute Neutrophil Count 10.1 X10^3/uL (2.0-7.7); Basophil# 0.07 X10^3/uL; Basophil% 0.6 % (0-1); Eosinophil# 0.05 X10^3/uL; Eosinophils% 0.4 % (0-5); Hematocrit 26.6 % (37-47); Hemoglobin 8.6 g/dL (12.0-15.0); Lymphocyte # 0.56 X10^3/ul (0.83-4.51); Lymphocyte % 4.7 % (19-41); Mean Corp Hgb Conc 32.3 g/dL (32-36); Mean Corpuscular Hgb 31.9 pg (27.0-32.0); Mean Corpuscular Volume 98.5 fL (81-99); Mean Platelet Vol. 9.2 fl (6.2-12.0); Monocyte# 0.95 X10^3/uL; NRBC Flagged by Analyzer 0 % (0-5); Neutrophil # 10.08 X10^3/uL (2.7-7.7); Neutrophil % 84.6 % (47-70); POSITIVE DIFFERENTIAL YES; Platelet Count 617 K/mm3 (150-450); RBC Distribution Width CV 15.8 % (11.6-14.6); RBC Distribution Width SD 55.7 fl (35.1-43.9); White Blood Count 11.9 K/mm3 (4.4-11.0)
[2024-04-13 15:43] LABS: Lactic Acid 0.7 mmol/L (0.4-1.9)
[2024-04-13 15:47] LABS: Erythrocyte Sedimentation Rate 40 mm/hr (0-30)
[2024-04-13 15:53] LABS: Anion Gap 2 (5-15); BUN 9 mg/dL (7-18); BUN/Creat Ratio 22.4 RATIO (10-20); Chloride 98 mmol/L (98-107); EST Glomerular Filtration Rate 165 mL/min (>60); Est Glom Filt Rate - Afr Amer 200 mL/min (>60); Estimated Creatinine Clearance 50.27 ml/min; Glucose 126 mg/dL (74-106); Potassium 4.1 mmol/L (3.5-5.1); Sodium Level 130 mmol/L (136-145)
[2024-04-13] MEDS: Vancomycin HCl 750 MG in 0.9% Normal Saline (250mL Bag) 250 ML 250 MG IV (16:33)
[2024-04-13] MEDS: Gabapentin 800 MG Tablet PO (19:41)
[2024-04-13] MEDS: oxyCODONE 5 MG Tablet 15 MG PO (19:41)
--- NOTE | 2024-04-13 20:29 | ED.RN ---
called report to Mary Carmen WILKS @ [facility]
== END 2024-04-13 20:53 | disposition short-term general hospital (02) ==
PROVIDERS: Emergency Provider Emergency Medicine; PCP Family Medicine; Referring Provider Emergency Medicine; Visit Provider Emergency Medicine
DX: K61.39 Other ischiorectal abscess (principal); G82.20 Paraplegia, unspecified; G04.89 Other myelitis; L89.319 Pressure ulcer of right buttock, unspecified stage
CPT/HCPCS: 72193; 80048; 83605; 85025; 85652; 86140; 96365; 99284; Q9967; A4216

== ENCOUNTER 2024-05-03 10:00 | Outpatient (RCR) | payer MEDICARE, OTHER, SELFPAY ==
[2024-04-03 00:43] VITALS: BP 188/66; PULSE 68; RESP 16; TEMP 35.9; BMI 16.9
[2024-04-13 09:41] VITALS: BP 99/52; PULSE 84; RESP 18; TEMP 36.8; BMI 16.9
--- NOTE | 2024-04-13 12:33 | PCM.WC.PN ---
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 Also has some hardened erythematous tissue around the edge of the wound and currently they have been using honey on the wound base. She also has a sacral wound that is has some depth also from pressure. She states she is currently taking doxycycline and they have been doing wet-to-dry in the perirectal area that is open also the perirectal area is in between her vagina and her rectum it is in a very precarious place. Progress of Wound: I did not feel comfortable debriding the perirectal area because I think it needs to be seen by surgery first I will continue the Dakin's packing wet-to-dry on that 1 I did debride the right buttocks and we will start a wound VAC till she can be seen by surgery to that area and for the sacral area I debrided that and we will start her on fibrocal moistened with Adaptic and an Thorndike SAP absorbent dressing over top. Patient will also be referred to the plastic surgeon here at [facility]. Subjective Subjective Patient was agreeable to plan and we will go ahead and order the wound VAC to be sent directly to the alf and they can apply it with the foam dressing. Objective Data Objective Data The right buttocks is going to be deep I tried not to debride too much off but there is a lot more that needs to come out I will try to use the wound VAC instead to see if we can close it but I think it is can be very difficult without some kind of surgery to debride everything. Eventually I think he is going to need to close it with a wound VAC anyways. After looking over at her labs she is got a 16.9 white count I am her blood counts down to 7.9 from 8 I think she needs to be going to the hospital so we will refer her to the emergency room to be evaluated and admitted for sepsis and Vital Signs: Vital Signs Temp Pulse Resp BP 98.3 F 84 18 99/52 L 04/13/24 09:41 04/13/24 09:41 04/13/24 09:41 04/13/24 09:41 Weight: 89 lb 6.4 oz Body Mass Index (BMI) 16.9 Lab / Micro Data Attestation: I reviewed the patient's lab results. Physical Exam Const alert and oriented x3 General Appearance: cooperative, ill appearing, frail and appears older than stated age Orientation / Consciousness: oriented to person, oriented to place and oriented to time Nutritional Appearance: cachectic, underweight and thin HEENT normocephalic Eyes General Eye: normal appearance of both eyes Resp normal respiratory effort and normal air movement Effort and Inspection: able to speak in complete sentences Cardio Rate: regular rate Rhythm: regular rhythm GI Rectal Exam: visual inspection abnormal, fistula and other Other Details: Open wound left buttocks and perirectal may be fistula going on. Back/Spine Back/Spine Narrative: Open wound and sacral area of spine nonhealing from pressure Skin Skin Narrative: Open wounds on left buttocks with positive depth and infection possible sepsis sacral area open area nonhealing and perirectal area possibly a fistula. Neuro oriented x3 Psych Appearance: grossly normal Attitude: calm Activity / Motor Behavior: appropriate eye contact Speech: normal speech Mood & Affect: euthymic mood Thought Process: normal thought process Thought Content: normal thought content Attention / Concentration: attention grossly intact Memory / Cognition: memory grossly intact Insight: insight good Judgement: judgement good Debridement Note Debridement Note Wound debrided: Right buttocks Wound Grade/Stage: Stage IV Type of Debridement: Excisional debridement Anesthesia Used: 5% Lidocaine Gel Depth: in the subcutaneous layer and to muscle Percentage of wound debrided: 100 Instrument Used: 7mm curette and #15 blade Tissue Removed: Fat layers and devitalized tissue Severity: Fat Layer Exposed Amount of bleeding with debridement: Moderate Bleeding Controlled with: Compression and gauze and Gel Foam Patient tolerated procedure: Patient tolerated procedure well Post-Debridement Measurements and Additional Note: Post-Debridement Measurements/Treatment - Nurse 1 - General Ulcer Assessment Start: 04/13/24 09:41 Freq: Status: Active Protocol: JOSEPHINE Activity Type Activity Date Activity User E-sign Co-sign Detail Recorded Client Recorded Date Recorded By Document 04/13/24 09:41 DL [id number] 04/13/24 10:02 DL 04/13/24 09:41 - Today's Visit Information Type of service Follow-up Visit (Physician/COMPOSITION FLOOR LAYER ) Arrival Mode Wheelchair Transfer Assist (Other) x1 Patient Identification Verified (Name & Yes ) Height and Weight Body Mass Index (BMI) 16.9 BMI Classification Underweight Vital Signs Temperature (97.8 F-99.1 F) 98.3 F Temperature Source Temporal Pulse Rate (60-100) 84 Respiratory Rate (12-18) 18 Blood Pressure (90/60-120/80) 99/52 L Blood Pressure Mean (mm Hg) 67 Source Monitor History Since Last Visit- (Skip if this is Patient's initial visit) Have you changed medications since your No last visit? Any new allergies or adverse reactions No Had a fall/change in ADL's that may No increase risk of falls Signs or symptoms of abuse and/or No neglect since last visit Have you been in the hospital since your No last visit? Has dressing in place as prescribed Yes Has compression in place as prescribed No Has offloadiing in place as prescribed Yes Pain Scale: 0-10 Numeric Is Patient Pain Free? Yes WC - Nurse 1 - General Ulcer Measurement Start: 04/13/24 09:41 Freq: Status: Active Protocol: Activity Type Activity Date Activity User E-sign Co-sign Detail Recorded Client Recorded Date Recorded By Document 04/13/24 09:41 DL [id number] 04/13/24 10:02 DL 04/13/24 09:41 Wound Center Nurse 1 #13- fernando rectal -Combined with other wound No -Current Size (cm) - Length 1.8 -Current Size (cm) - Width 1.5 -Current Size (cm) - Depth 1.8 -Total Square Cm 2.70 -Date of Last Picture (Recall this 04/13/24 field) -Photo Taken Yes -Undermining/Tunneling Yes -Undermining/Tunneling Starts (O'clock 2 ) -Undermining/Tunneling Ends (O'clock) 4 -Maximum Distance (cm) 3.3 -Circular Undermining No -Exudate Amt Medium -Exudate Type Serosanguineous -Wound Margin Distinct, Outline Attached -Granulation Amt None Present (0 %) -Slough/Fibrin Yes -Necrosis Amt Large (67-100%) -Necrotic Tissue Type Adherent Slough -Texture (Fernando-wound Skin Appearance) Assessed, Localized Edema ,Scarring -Moisture (Fernando-wound Skin Appearance) Assessed -Color (Fernando-wound Skin Appearance) Assessed, Erythema -Temperature (Fernando-wound Skin No Abnormality Appearance) (Pt Warm) -Tenderness on Palpation (Fernando-wound No Skin Appearance) -Ulcer Cleansing Soap and Water -Foul Odor after Cleansing No -Anesthetic Used 4% Lidocaine Solution #12- r buttock -Combined with other wound No -Current Size (cm) - Length 4.4 -Current Size (cm) - Width 6.5 -Current Size (cm) - Depth 0.1 -Total Square Cm 28.60 -Date of Last Picture (Recall this 04/13/24 field) -Photo Taken Yes -Epithelialization None Present -Tunneling No -Undermining/Tunneling No -Circular Undermining No -Exudate Amt Medium -Exudate Type Serosanguineous -Wound Margin Distinct, Outline Attached -Granulation Amt None Present (0 %) -Slough/Fibrin Yes -Necrosis Amt Large (67-100%) -Necrotic Tissue Type Adherent Slough -Texture (Fernando-wound Skin Appearance) Assessed, Localized Edema -Moisture (Fernando-wound Skin Appearance) Assessed -Color (Fernando-wound Skin Appearance) Assessed, Erythema -Temperature (Fernando-wound Skin No Abnormality Appearance) (Pt Warm) -Tenderness on Palpation (Fernando-wound No Skin Appearance) -Ulcer Cleansing Soap and Water -Foul Odor after Cleansing No -Anesthetic Used 4% Lidocaine Solution #11- sacral -Combined with other wound No -Current Size (cm) - Length 2.6 -Current Size (cm) - Width 3 -Current Size (cm) - Depth 0.1 -Total Square Cm 7.8 -Date of Last Picture (Recall this 04/13/24 field) -Photo Taken Yes -Tunneling No -Undermining/Tunneling No -Circular Undermining No -Exudate Amt Medium -Exudate Type Serosanguineous -Wound Margin Distinct, Outline Attached -Granulation Amt None Present (0 %) -Slough/Fibrin Yes -Necrosis Amt Large (67-100%) -Necrotic Tissue Type Adherent Slough -Texture (Fernando-wound Skin Appearance) Assessed, Localized Edema ,Scarring -Moisture (Fernando-wound Skin Appearance) Assessed -Color (Fernando-wound Skin Appearance) Assessed, Erythema -Temperature (Fernando-wound Skin No Abnormality Appearance) (Pt Warm) -Tenderness on Palpation (Fernando-wound No Skin Appearance) -Ulcer Cleansing Soap and Water -Foul Odor after Cleansing No -Anesthetic Used 4% Lidocaine Solution #10 left hallux -Combined with other wound No -Current Size (cm) - Length 0.6 -Current Size (cm) - Width 1.1 -Current Size (cm) - Depth 0.1 -Total Square Cm 0.66 -Date of Last Picture (Recall this 04/13/24 field) -Epithelialization None Present -Tunneling No -Undermining/Tunneling No -Circular Undermining No -Exudate Amt Medium -Exudate Type Serosanguineous -Wound Margin Distinct, Outline Attached -Granulation Amt Medium (34-66%) -Granulation Quality Red -Slough/Fibrin Yes -Necrosis Amt Medium (34-66%) -Necrotic Tissue Type Adherent Slough -Texture (Fernando-wound Skin Appearance) Assessed, Localized Edema ,Scarring -Moisture (Fernando-wound Skin Appearance) Assessed -Color (Fernando-wound Skin Appearance) Assessed, Erythema -Temperature (Fernando-wound Skin No Abnormality Appearance) (Pt Warm) -Tenderness on Palpation (Fernando-wound No Skin Appearance) -Ulcer Cleansing Soap and Water -Foul Odor after Cleansing No -Anesthetic Used 4% Lidocaine Solution WC - Nurse 2 - General Ulcer CM Notes Start: 04/13/24 09:41 Freq: Status: Active Protocol: Activity Type Activity Date Activity User E-sign Co-sign Detail Recorded Client Recorded Date Recorded By Document 04/13/24 10:08 [facility] [id number] 04/13/24 10:40 [facility] Document 04/13/24 11:11 [id number] 04/13/24 11:14 04/13/24 04/13/24 10:08 11:11 Wound Center Nurse 2 #13- fernando rectal -Time 10:29 -Post Debridement (cm) - Length 2 -Post Debridement (cm) - Width 1 -Post Debridement (cm) - Depth 1.5 -Total Square (Post) (cm) 2 -Area of Debridement (cm) - Length 2 -Area of Debridement (cm) - Width 1 -Total Square (Area) (cm) 2 -Wound/Ulcer Outcome Not Healed -Ulcer Cleansing Rinsed/ Irrigated with Saline -Foul Odor after Cleansing No -Bleeding Controlled with NA #12- r buttock -Time 10:20 -Correct Patient Yes -Correct Side, Site, Position Yes -Correct Procedure Yes -Procedure Performed Yes -Type of Procedure Debridement -Clinical Debridement Muscle / Fascia -Tissue Removed Muscle,Fascia -Post Debridement (cm) - Length 7 -Post Debridement (cm) - Width 4 -Post Debridement (cm) - Depth 3.0 -Total Square (Post) (cm) 28 -Area of Debridement (cm) - Length 7 -Area of Debridement (cm) - Width 4 -Total Square (Area) (cm) 28 -Tunneling No -Undermining/Tunneling No -Circular Undermining No -Wound/Ulcer Outcome Not Healed -Ulcer Cleansing Rinsed/ Irrigated with Saline -Bleeding Controlled with Pressure, SURGIFOAM -Treatment Response Procedure Tolerated Well -Debridement - Muscle / Fascia, 1st Yes 20sq cm -Debridement, Muscle/Fascia, ea addt'l 1 20sq cm or part thereof #11- sacral -Time 10:30 -Correct Patient Yes -Correct Side, Site, Position Yes -Correct Procedure Yes -Procedure Performed Yes -Type of Procedure Debridement -Clinical Debridement Subcutaneous -Tissue Removed Subcutaneous -Post Debridement (cm) - Length 2.5 -Post Debridement (cm) - Width 4 -Post Debridement (cm) - Depth 0.3 -Total Square (Post) (cm) 10.0 -Area of Debridement (cm) - Length 2.5 -Area of Debridement (cm) - Width 4 -Total Square (Area) (cm) 10.0 -Tunneling No -Undermining/Tunneling No -Circular Undermining No -Wound/Ulcer Outcome Not Healed -Ulcer Cleansing Rinsed/ Irrigated with Saline -Foul Odor after Cleansing No -Bioengineered Tissue No -Bleeding Controlled with Pressure -Treatment Response Procedure Tolerated Well -Debridement - Subq, 1st 20sq cm Yes #10 left hallux -Time 11:12 -Correct Patient Yes -Correct Side, Site, Position Yes -Correct Procedure Yes -Procedure Performed Yes -Type of Procedure Debridement -Clinical Debridement Subcutaneous -Tissue Removed Subcutaneous -Post Debridement (cm) - Length 0.6 -Post Debridement (cm) - Width 0.8 -Post Debridement (cm) - Depth 0.1 -Total Square (Post) (cm) 0.48 -Area of Debridement (cm) - Length 0.6 -Area of Debridement (cm) - Width 0.8 -Total Square (Area) (cm) 0.48 -Tunneling No -Undermining/Tunneling No -Circular Undermining No -Wound/Ulcer Outcome Not Healed -Ulcer Cleansing Rinsed/ Irrigated with Saline -Foul Odor after Cleansing No -Bioengineered Tissue No -Bleeding Controlled with Pressure -Treatment Response Procedure Tolerated Well -Offloading No -Debridement - Subq, 1st 20sq cm Yes Pain Scale: 0-10 Numeric Is Patient Pain Free? Yes Yes - Nurse 3 - General Ulcer D/C NN Start: 04/13/24 09:41 Freq: Status: Active Protocol: Activity Type Activity Date Activity User E-sign Co-sign Detail Recorded Client Recorded Date Recorded By Document 04/13/24 11:14 DL [id number] 04/13/24 11:18 DL 04/13/24 11:14 Wound Care Center Nurse 3 #13- fernando rectal -Ulcer Cleansing Soap and Water -Foul Odor after Cleansing No -Other Dressing dakins -Primary Dressing Covered/Secured with Dry Gauze, Secured with Tape #12- r buttock -Ulcer Cleansing Soap and Water -Foul Odor after Cleansing No -Other Dressing dakins -Primary Dressing Covered/Secured with Dry Gauze, Secured with Tape #11- sacral -Ulcer Cleansing Soap and Water -Foul Odor after Cleansing No -Primary Dressing Applied Fibracol Plus 4x4 -Primary Dressing Covered/Secured with Dry Gauze, Secured with Tape -Fibracol Plus 4x4 1 #10 left hallux -Ulcer Cleansing Rinsed/ Irrigated with Saline -Primary Dressing Applied Fibracol Plus 4x4 -Primary Dressing Covered/Secured with Dry Gauze, Secured with Tape -Fibracol Plus 4x4 1 Treatment Response Procedure Tolerated Well Pain Scale: 0-10 Numeric Is Patient Pain Free? Yes - Visit Discharge Discharge Condition Stable Ambulatory Status Wheelchair Transportation Private Auto Facility Type [facility] Orders Sent Yes Additional Wound Wound debrided: Sacral decubitus ulcer Type of Debridement: Excisional debridement Anesthesia Used: 5% Lidocaine Gel Depth: Down to and including healthy tissue Percentage of wound debrided: 100 Instrument Used: 7mm curette Tissue Removed: Fibrin and devitalized tissue Severity: Fat Layer Exposed Amount of bleeding with debridement: Mild Bleeding Controlled with: Compression and gauze Patient tolerated procedure: Patient tolerated procedure well Assessment/Plan Assessment/Plan (1) Decubitus ulcer of sacral region, stage 2: CODE(S): L89.152 - Pressure ulcer of sacral region, stage 2 PLAN: Wash area with antibacterial soap and water apply fibracol to wound base Adaptic and then cover with Thorndike SAP foam dressing every day (2) Decubitus ulcer of right buttock, stage 4: CODE(S): L89.314 - Pressure ulcer of right buttock, stage 4 PLAN: For now packed with Dakin's and cover with gauze and ABD every day Did order a wound VAC to be set at 150 mmHg till seen by plastic surgery for possible surgical debridement and closure. 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 (5) Sepsis: CODE(S): A41.9 - Sepsis, unspecified organism QUALIFIERS: Sepsis type: sepsis due to unspecified organism Sepsis acute organ dysfunction status: unspecified Qualified Code(s): A41.9 - Sepsis, unspecified organism PLAN: Referred to [place] emergency room
--- NOTE | 2024-04-13 12:57 | WC ---
CARLOS PAGAN REVIEWED PT'S MOST RECENT LABS AND WOULD LIKE HER TO GO TO ER FOR EVALUATION AND POSSIBLE ADMIT D/T STATUS OF BUTTOCK AND YOEL RECTAL WOUNDS TODAY IN CLINIC. 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 ALSO CALLED [facility] W/ UPDATE GIVEN TO PT'S NURSE ON [facility] UNIT.
--- NOTE | 2024-04-13 13:37 | PCM.WC.PN ---
History of Present Illness Date of Service: 04/13/24 Chief Complaint: Follow-up right buttocks wound and perirectal area and sacral wound History of Wound: 73-year-old paraplegic patient living at [facility] that developed pressure ulcers on her right buttocks that is pretty deep with showing now a lot of fat tissue. Also has some hardened erythematous tissue around the edge of the wound and currently they have been using honey on the wound base. She also has a sacral wound that is has some depth also from pressure. She states she is currently taking doxycycline and they have been doing wet-to-dry in the perirectal area that is open also the perirectal area is in between her vagina and her rectum it is in a very precarious place. Progress of Wound: I did not feel comfortable debriding the perirectal area because I think it needs to be seen by surgery first I will continue the Dakin's packing wet-to-dry on that 1 I did debride the right buttocks and we will start a wound VAC till she can be seen by surgery to that area and for the sacral area I debrided that and we will start her on fibrocal moistened with Adaptic and an [place] SAP absorbent dressing over top. Patient will also be referred to the plastic surgeon here at [facility]. Subjective Subjective Ms. Perales is a 73-year-old female who is also a paraplegic presenting to the wound care center today follow-up evaluation of left foot full-thickness ulceration to the first metatarsophalangeal joint. She is also seeing the nurse practitioner for sacral wound. Patient did have a stay in the hospital secondary to colitis and is currently residing in nursing home facility for [id number] care. She has noticed improvement to the left foot wound. Denies any trauma. Denies constitutional symptoms. No other pedal complaints at this time. Objective Data Objective Data Vital Signs: Vital Signs Temp Pulse Resp BP 98.3 F 84 18 99/52 L 04/13/24 09:41 04/13/24 09:41 04/13/24 09:41 04/13/24 09:41 Weight: 40.551 kg Body Mass Index (BMI) 16.9 Physical Exam Narrative Vascular: DP and PT pulses are faintly palpable to left lower extremity. CFT is delayed. Skin temperature gradient is warm to cool from proximal ankle to distal digit. No erythema or proximal streaking is appreciated. Neurological: Light touch absent. Protective sensation is absent. Dermatological: Full-thickness ulceration to the first metatarsal phalangeal joint dorsally measuring 0.5 x 0.8 x 0.1 cm. Wound base is granular nature. No drainage or sign of infection. Excisional debridement down to and including subcutaneous tissue with a number 5 mm dermal curette to the left foot ulceration at the level of the first metatarsal phalangeal joint without incident. Predebridement measurement was 0.4 x 0.3 x 0.1 cm. Postdebridement measurement is 0.5 x 0.8 x 0.1 cm. Musculoskeletal: Muscle strength is 0 out of 5 bilateral. No pain on palpation to the full-thickness wound. No pain with calf pressure. Debridement Note Debridement Note Debridement Free Text: Excisional debridement down to and including subcutaneous tissue with a number 5 mm dermal curette to the left foot ulceration at the level of the first metatarsal phalangeal joint without incident. Predebridement measurement was 0.4 x 0.3 x 0.1 cm. Postdebridement measurement is 0.5 x 0.8 x 0.1 cm. Post-Debridement Measurements and Additional Note: Post-Debridement Measurements/Treatment WC - Nurse 1 - General Ulcer Assessment Start: 04/13/24 09:41 Freq: Status: Active Protocol: [email or web address].LOWEXT Activity Type Activity Date Activity User E-sign Co-sign Detail Recorded Client Recorded Date Recorded By Document 04/13/24 09:41 BEN [id number] 04/13/24 10:02 DL 04/13/24 09:41 - Today's Visit Information Type of service Follow-up Visit (Physician/DISASTER OR DAMAGE CONTROL SPECIALIST ) Arrival Mode Wheelchair Transfer Assist (Other) x1 Patient Identification Verified (Name & Yes ) Height and Weight Body Mass Index (BMI) 16.9 BMI Classification Underweight Vital Signs Temperature (97.8 F-99.1 F) 98.3 F Temperature Source Temporal Pulse Rate (60-100) 84 Respiratory Rate (12-18) 18 Blood Pressure (90/60-120/80) 99/52 L Blood Pressure Mean (mm Hg) 67 Source Monitor History Since Last Visit- (Skip if this is Patient's initial visit) Have you changed medications since your No last visit? Any new allergies or adverse reactions No Had a fall/change in ADL's that may No increase risk of falls Signs or symptoms of abuse and/or No neglect since last visit Have you been in the hospital since your No last visit? Has dressing in place as prescribed Yes Has compression in place as prescribed No Has offloadiing in place as prescribed Yes Pain Scale: 0-10 Numeric Is Patient Pain Free? Yes WC - Nurse 1 - General Ulcer Measurement Start: 04/13/24 09:41 Freq: Status: Active Protocol: Activity Type Activity Date Activity User E-sign Co-sign Detail Recorded Client Recorded Date Recorded By Document 04/13/24 09:41 DL [id number] 04/13/24 10:02 DL 04/13/24 09:41 Wound Center Nurse 1 #13- fernando rectal -Combined with other wound No -Current Size (cm) - Length 1.8 -Current Size (cm) - Width 1.5 -Current Size (cm) - Depth 1.8 -Total Square Cm 2.70 -Date of Last Picture (Recall this 04/13/24 field) -Photo Taken Yes -Undermining/Tunneling Yes -Undermining/Tunneling Starts (O'clock 2 ) -Undermining/Tunneling Ends (O'clock) 4 -Maximum Distance (cm) 3.3 -Circular Undermining No -Exudate Amt Medium -Exudate Type Serosanguineous -Wound Margin Distinct, Outline Attached -Granulation Amt None Present (0 %) -Slough/Fibrin Yes -Necrosis Amt Large (67-100%) -Necrotic Tissue Type Adherent Slough -Texture (Fernando-wound Skin Appearance) Assessed, Localized Edema ,Scarring -Moisture (Fernando-wound Skin Appearance) Assessed -Color (Fernando-wound Skin Appearance) Assessed, Erythema -Temperature (Fernando-wound Skin No Abnormality Appearance) (Pt Warm) -Tenderness on Palpation (Fernando-wound No Skin Appearance) -Ulcer Cleansing Soap and Water -Foul Odor after Cleansing No -Anesthetic Used 4% Lidocaine Solution #12- r buttock -Combined with other wound No -Current Size (cm) - Length 4.4 -Current Size (cm) - Width 6.5 -Current Size (cm) - Depth 0.1 -Total Square Cm 28.60 -Date of Last Picture (Recall this 04/13/24 field) -Photo Taken Yes -Epithelialization None Present -Tunneling No -Undermining/Tunneling No -Circular Undermining No -Exudate Amt Medium -Exudate Type Serosanguineous -Wound Margin Distinct, Outline Attached -Granulation Amt None Present (0 %) -Slough/Fibrin Yes -Necrosis Amt Large (67-100%) -Necrotic Tissue Type Adherent Slough -Texture (Fernando-wound Skin Appearance) Assessed, Localized Edema -Moisture (Fernando-wound Skin Appearance) Assessed -Color (Fernando-wound Skin Appearance) Assessed, Erythema -Temperature (Fernando-wound Skin No Abnormality Appearance) (Pt Warm) -Tenderness on Palpation (Fernando-wound No Skin Appearance) -Ulcer Cleansing Soap and Water -Foul Odor after Cleansing No -Anesthetic Used 4% Lidocaine Solution #11- sacral -Combined with other wound No -Current Size (cm) - Length 2.6 -Current Size (cm) - Width 3 -Current Size (cm) - Depth 0.1 -Total Square Cm 7.8 -Date of Last Picture (Recall this 04/13/24 field) -Photo Taken Yes -Tunneling No -Undermining/Tunneling No -Circular Undermining No -Exudate Amt Medium -Exudate Type Serosanguineous -Wound Margin Distinct, Outline Attached -Granulation Amt None Present (0 %) -Slough/Fibrin Yes -Necrosis Amt Large (67-100%) -Necrotic Tissue Type Adherent Slough -Texture (Fernando-wound Skin Appearance) Assessed, Localized Edema ,Scarring -Moisture (Fernando-wound Skin Appearance) Assessed -Color (Fernando-wound Skin Appearance) Assessed, Erythema -Temperature (Fernando-wound Skin No Abnormality Appearance) (Pt Warm) -Tenderness on Palpation (Fernando-wound No Skin Appearance) -Ulcer Cleansing Soap and Water -Foul Odor after Cleansing No -Anesthetic Used 4% Lidocaine Solution #10 left hallux -Combined with other wound No -Current Size (cm) - Length 0.6 -Current Size (cm) - Width 1.1 -Current Size (cm) - Depth 0.1 -Total Square Cm 0.66 -Date of Last Picture (Recall this 04/13/24 field) -Epithelialization None Present -Tunneling No -Undermining/Tunneling No -Circular Undermining No -Exudate Amt Medium -Exudate Type Serosanguineous -Wound Margin Distinct, Outline Attached -Granulation Amt Medium (34-66%) -Granulation Quality Red -Slough/Fibrin Yes -Necrosis Amt Medium (34-66%) -Necrotic Tissue Type Adherent Slough -Texture (Fernando-wound Skin Appearance) Assessed, Localized Edema ,Scarring -Moisture (Fernando-wound Skin Appearance) Assessed -Color (Fernando-wound Skin Appearance) Assessed, Erythema -Temperature (Fernando-wound Skin No Abnormality Appearance) (Pt Warm) -Tenderness on Palpation (Fernando-wound No Skin Appearance) -Ulcer Cleansing Soap and Water -Foul Odor after Cleansing No -Anesthetic Used 4% Lidocaine Solution WC - Nurse 2 - General Ulcer CM Notes Start: 04/13/24 09:41 Freq: Status: Active Protocol: Activity Type Activity Date Activity User E-sign Co-sign Detail Recorded Client Recorded Date Recorded By Document 04/13/24 10:08 [facility] [id number] 04/13/24 10:40 [facility] Document 04/13/24 11:11 [id number] 04/13/24 11:14 04/13/24 04/13/24 10:08 11:11 Wound Center Nurse 2 #13- fernando rectal -Time 10:29 -Post Debridement (cm) - Length 2 -Post Debridement (cm) - Width 1 -Post Debridement (cm) - Depth 1.5 -Total Square (Post) (cm) 2 -Area of Debridement (cm) - Length 2 -Area of Debridement (cm) - Width 1 -Total Square (Area) (cm) 2 -Wound/Ulcer Outcome Not Healed -Ulcer Cleansing Rinsed/ Irrigated with Saline -Foul Odor after Cleansing No -Bleeding Controlled with NA #12- r buttock -Time 10:20 -Correct Patient Yes -Correct Side, Site, Position Yes -Correct Procedure Yes -Procedure Performed Yes -Type of Procedure Debridement -Clinical Debridement Muscle / Fascia -Tissue Removed Muscle,Fascia -Post Debridement (cm) - Length 7 -Post Debridement (cm) - Width 4 -Post Debridement (cm) - Depth 3.0 -Total Square (Post) (cm) 28 -Area of Debridement (cm) - Length 7 -Area of Debridement (cm) - Width 4 -Total Square (Area) (cm) 28 -Tunneling No -Undermining/Tunneling No -Circular Undermining No -Wound/Ulcer Outcome Not Healed -Ulcer Cleansing Rinsed/ Irrigated with Saline -Bleeding Controlled with Pressure, SURGIFOAM -Treatment Response Procedure Tolerated Well -Debridement - Muscle / Fascia, 1st Yes 20sq cm -Debridement, Muscle/Fascia, ea addt'l 1 20sq cm or part thereof #11- sacral -Time 10:30 -Correct Patient Yes -Correct Side, Site, Position Yes -Correct Procedure Yes -Procedure Performed Yes -Type of Procedure Debridement -Clinical Debridement Subcutaneous -Tissue Removed Subcutaneous -Post Debridement (cm) - Length 2.5 -Post Debridement (cm) - Width 4 -Post Debridement (cm) - Depth 0.3 -Total Square (Post) (cm) 10.0 -Area of Debridement (cm) - Length 2.5 -Area of Debridement (cm) - Width 4 -Total Square (Area) (cm) 10.0 -Tunneling No -Undermining/Tunneling No -Circular Undermining No -Wound/Ulcer Outcome Not Healed -Ulcer Cleansing Rinsed/ Irrigated with Saline -Foul Odor after Cleansing No -Bioengineered Tissue No -Bleeding Controlled with Pressure -Treatment Response Procedure Tolerated Well -Debridement - Subq, 1st 20sq cm Yes #10 left hallux -Time 11:12 -Correct Patient Yes -Correct Side, Site, Position Yes -Correct Procedure Yes -Procedure Performed Yes -Type of Procedure Debridement -Clinical Debridement Subcutaneous -Tissue Removed Subcutaneous -Post Debridement (cm) - Length 0.6 -Post Debridement (cm) - Width 0.8 -Post Debridement (cm) - Depth 0.1 -Total Square (Post) (cm) 0.48 -Area of Debridement (cm) - Length 0.6 -Area of Debridement (cm) - Width 0.8 -Total Square (Area) (cm) 0.48 -Tunneling No -Undermining/Tunneling No -Circular Undermining No -Wound/Ulcer Outcome Not Healed -Ulcer Cleansing Rinsed/ Irrigated with Saline -Foul Odor after Cleansing No -Bioengineered Tissue No -Bleeding Controlled with Pressure -Treatment Response Procedure Tolerated Well -Offloading No -Debridement - Subq, 1st 20sq cm Yes Pain Scale: 0-10 Numeric Is Patient Pain Free? Yes Yes WC - Nurse 3 - General Ulcer D/C NN Start: 04/13/24 09:41 Freq: Status: Active Protocol: Activity Type Activity Date Activity User E-sign Co-sign Detail Recorded Client Recorded Date Recorded By Document 04/13/24 11:14 DL [id number] 04/13/24 11:18 DL 04/13/24 11:14 Wound Care Center Nurse 3 #13- fernando rectal -Ulcer Cleansing Soap and Water -Foul Odor after Cleansing No -Other Dressing dakins -Primary Dressing Covered/Secured with Dry Gauze, Secured with Tape #12- r buttock -Ulcer Cleansing Soap and Water -Foul Odor after Cleansing No -Other Dressing dakins -Primary Dressing Covered/Secured with Dry Gauze, Secured with Tape #11- sacral -Ulcer Cleansing Soap and Water -Foul Odor after Cleansing No -Primary Dressing Applied Fibracol Plus 4x4 -Primary Dressing Covered/Secured with Dry Gauze, Secured with Tape -Fibracol Plus 4x4 1 #10 left hallux -Ulcer Cleansing Rinsed/ Irrigated with Saline -Primary Dressing Applied Fibracol Plus 4x4 -Primary Dressing Covered/Secured with Dry Gauze, Secured with Tape -Fibracol Plus 4x4 1 Treatment Response Procedure Tolerated Well Pain Scale: 0-10 Numeric Is Patient Pain Free? Yes WC - Visit Discharge Discharge Condition Stable Ambulatory Status Wheelchair Transportation [facility] Facility Type Residential Care Facility Orders Sent Yes Assessment/Plan Assessment/Plan (1) Non-pressure chronic ulcer of other part of left foot with fat layer exposed: CODE(S): L97.522 - Non-pressure chronic ulcer of other part of left foot with fat layer exposed PLAN: Patient was examined and evaluated. All findings were discussed with the patient. All questions were answered to the patient's satisfaction. Excisional debridement down to and including subcutaneous tissue with a number 5 mm dermal curette to the left foot ulceration at the level of the first metatarsal phalangeal joint without incident. Predebridement measurement was 0.4 x 0.3 x 0.1 cm. Postdebridement measurement is 0.5 x 0.8 x 0.1 cm. The left foot was wiped clean and patted dry. Fibrocal/Collagen was applied to the left first metatarsophalangeal joint full-thickness wound followed by dry sterile dressing and light compression wrap. Patient will have dressing change every other day. Further discussed with the nurse practitioner the patient shows evidence of leukocytosis and will be sent over to the emergency room to be evaluated and possible admission with consult to plastic surgery for evaluation of the patient's sacral/buttocks full-thickness ulceration. Follow-up at the wound care center with Dr. Mota in 1 week.
--- NOTE | 2024-04-14 08:56 | WC ---
PHOTO 04/13/24 YOEL RECTAL
--- NOTE | 2024-04-14 09:00 | WC ---
PHOTO 04/13/24 RIGHT BUTTOCKS
--- NOTE | 2024-04-14 09:02 | WC ---
PHOTO 04/13/24 SACRAL
--- NOTE | 2024-04-14 09:04 | WC ---
PHOTO 04/13/24 LEFT HALLUX
[2024-05-03 10:14] VITALS: BP 93/56; PULSE 94; RESP 16; TEMP 37.4; BMI 16.9
--- NOTE | 2024-05-03 12:40 | PCM.WC.PN ---
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 Also has some hardened erythematous tissue around the edge of the wound and currently they have been using honey on the wound base. She also has a sacral wound that is has some depth also from pressure. She states she is currently taking doxycycline and they have been doing wet-to-dry in the perirectal area that is open also the perirectal area is in between her vagina and her rectum it is in a very precarious place. Progress of Wound: I did not feel comfortable debriding the perirectal area because I think it needs to be seen by surgery first I will continue the Dakin's packing wet-to-dry on that 1 I did debride the right buttocks and we will start a wound VAC till she can be seen by surgery to that area and for the sacral area I debrided that and we will start her on fibrocal moistened with Adaptic and an [place] SAP absorbent dressing over top. Patient will also be referred to the plastic surgeon here at [facility]. Subjective Subjective Ms. Perales is a 73-year-old female presenting weakness and a follow-up evaluation of full-thickness wound to the first metatarsophalangeal joint of the left foot. Patient was recently admitted to [facility] For reconstruction to her full-thickness wound to the buttock area. She is residing at [facility] after surgery for dressing changes and antibiotics. She admits that her left foot wound was healed and states that it is a little bruised. The patient admits to sleeping on her stomach and is unsure if she was having pressure on the foot even though she was using a pillow to offload the area. She denies trauma. Denies constitutional symptoms. No other pain complaints at this time. Objective Data Objective Data Vital Signs: Vital Signs Temp Pulse Resp BP O2 Del Method 99.3 F H 94 16 93/56 L Room Air 05/03/24 10:14 05/03/24 10:14 05/03/24 10:14 05/03/24 10:14 05/03/24 10:14 Oxygen Delivery Method Room Air Weight: 40.551 kg Body Mass Index (BMI) 16.9 Lab / Micro Data Micro: Microbiology 04/13/24 10:35 Wound - Buttock Gram Stain - Final 04/13/24 10:35 Wound - Buttock Wound Culture - Final Staphylococcus aureus 04/13/24 10:35 Wound - Buttock Anaerobic Culture - Final No anaerobic bacteria isolated. Physical Exam Narrative Vascular: DP and PT pulses are faintly palpable to left lower extremity. CFT is delayed. Skin temperature gradient is warm to cool from proximal ankle to distal digit. No erythema or proximal streaking is appreciated. Neurological: Light touch absent. Protective sensation is absent. Dermatological: Full-thickness ulceration to the first metatarsal phalangeal joint dorsally is now healed. Wound does show evidence of pressure sore but not open. Musculoskeletal: Muscle strength is 0 out of 5 bilateral. No pain on palpation to the full-thickness wound. No pain with calf pressure. Debridement Note Debridement Note Post-Debridement Measurements and Additional Note: Post-Debridement Measurements/Treatment - Nurse 1 - General Ulcer Assessment Start: 04/13/24 09:41 Freq: Status: Active Protocol: .LOWEXMary Activity Type Activity Date Activity User E-sign Co-sign Detail Recorded Client Recorded Date Recorded By Document 04/13/24 09:41 DL [id number] 04/13/24 10:02 DL Document 05/03/24 10:14 [facility] [id number] 05/03/24 10:21 BM 04/13/24 05/03/24 09:41 10:14 - Today's Visit Information Type of service Follow-up Visit Follow-up Visit (Physician/DIXONAC OPERATOR (Physician/DIXONAC OPERATOR ) ) Arrival Mode Wheelchair Wheelchair Transfer Assistance Other Transfer Assist (Other) x1 standby Patient Identification Verified (Name & Yes Yes ) Patient Requires Transmission-Based No Precautions Height and Weight Body Mass Index (BMI) 16.9 16.9 BMI Classification Underweight Underweight Vital Signs Temperature (97.8 F-99.1 F) 98.3 F 99.3 F H Temperature Source Temporal Temporal Pulse Rate (60-100) 84 94 Pulse Location Monitor Respiratory Rate (12-18) 18 16 Respiratory rate source Observation Oxygen Delivery Method Room Air Blood Pressure (90/60-120/80) 99/52 L 93/56 L Blood Pressure Mean (mm Hg) 67 68 Source Monitor Monitor Position Sitting Blood Pressure Location Left Arm History Since Last Visit- (Skip if this is Patient's initial visit) Have you changed medications since your No No last visit? Any new allergies or adverse reactions No No Had a fall/change in ADL's that may No No increase risk of falls Signs or symptoms of abuse and/or No No neglect since last visit Have you been in the hospital since your No No last visit? Has dressing in place as prescribed Yes Yes Has compression in place as prescribed No N/A Has offloadiing in place as prescribed Yes N/A Experienced any changes in pain level or No management Left Footwear Slipper Right Footwear Slipper Pain Scale: 0-10 Numeric Is Patient Pain Free? Yes Yes WC - Nurse 1 - General Ulcer Measurement Start: 04/13/24 09:41 Freq: Status: Active Protocol: Activity Type Activity Date Activity User E-sign Co-sign Detail Recorded Client Recorded Date Recorded By Document 04/13/24 09:41 DL [id number] 04/13/24 10:02 DL Document 05/03/24 10:14 [facility] [id number] 05/03/24 10:21 BMF 04/13/24 05/03/24 09:41 10:14 Wound Center Nurse 1 #13- fernando rectal -Combined with other wound No -Current Size (cm) - Length 1.8 -Current Size (cm) - Width 1.5 -Current Size (cm) - Depth 1.8 -Total Square Cm 2.70 -Date of Last Picture (Recall this 04/13/24 field) -Photo Taken Yes -Undermining/Tunneling Yes -Undermining/Tunneling Starts (O'clock 2 ) -Undermining/Tunneling Ends (O'clock) 4 -Maximum Distance (cm) 3.3 -Circular Undermining No -Exudate Amt Medium -Exudate Type Serosanguineous -Wound Margin Distinct, Outline Attached -Granulation Amt None Present (0 %) -Slough/Fibrin Yes -Necrosis Amt Large (67-100%) -Necrotic Tissue Type Adherent Slough -Texture (Fernando-wound Skin Appearance) Assessed, Localized Edema ,Scarring -Moisture (Fernando-wound Skin Appearance) Assessed -Color (Fernando-wound Skin Appearance) Assessed, Erythema -Temperature (Fernando-wound Skin No Abnormality Appearance) (Pt Warm) -Tenderness on Palpation (Fernando-wound No Skin Appearance) -Ulcer Cleansing Soap and Water -Foul Odor after Cleansing No -Anesthetic Used 4% Lidocaine Solution #12- r buttock -Combined with other wound No -Current Size (cm) - Length 4.4 -Current Size (cm) - Width 6.5 -Current Size (cm) - Depth 0.1 -Total Square Cm 28.60 -Date of Last Picture (Recall this 04/13/24 field) -Photo Taken Yes -Epithelialization None Present -Tunneling No -Undermining/Tunneling No -Circular Undermining No -Exudate Amt Medium -Exudate Type Serosanguineous -Wound Margin Distinct, Outline Attached -Granulation Amt None Present (0 %) -Slough/Fibrin Yes -Necrosis Amt Large (67-100%) -Necrotic Tissue Type Adherent Slough -Texture (Fernando-wound Skin Appearance) Assessed, Localized Edema -Moisture (Fernando-wound Skin Appearance) Assessed -Color (Fernando-wound Skin Appearance) Assessed, Erythema -Temperature (Fernando-wound Skin No Abnormality Appearance) (Pt Warm) -Tenderness on Palpation (Fernando-wound No Skin Appearance) -Ulcer Cleansing Soap and Water -Foul Odor after Cleansing No -Anesthetic Used 4% Lidocaine Solution #11- sacral -Combined with other wound No -Current Size (cm) - Length 2.6 -Current Size (cm) - Width 3 -Current Size (cm) - Depth 0.1 -Total Square Cm 7.8 -Date of Last Picture (Recall this 04/13/24 field) -Photo Taken Yes -Tunneling No -Undermining/Tunneling No -Circular Undermining No -Exudate Amt Medium -Exudate Type Serosanguineous -Wound Margin Distinct, Outline Attached -Granulation Amt None Present (0 %) -Slough/Fibrin Yes -Necrosis Amt Large (67-100%) -Necrotic Tissue Type Adherent Slough -Texture (Fernando-wound Skin Appearance) Assessed, Localized Edema ,Scarring -Moisture (Fernando-wound Skin Appearance) Assessed -Color (Fernando-wound Skin Appearance) Assessed, Erythema -Temperature (Fernando-wound Skin No Abnormality Appearance) (Pt Warm) -Tenderness on Palpation (Fernando-wound No Skin Appearance) -Ulcer Cleansing Soap and Water -Foul Odor after Cleansing No -Anesthetic Used 4% Lidocaine Solution #10 left hallux -Combined with other wound No No -Current Size (cm) - Length 0.6 0.1 -Current Size (cm) - Width 1.1 0.1 -Current Size (cm) - Depth 0.1 0.1 -Total Square Cm 0.66 0.01 -Date of Last Picture (Recall this 04/13/24 05/03/24 field) -Epithelialization None Present Large 67-100% -Tunneling No -Undermining/Tunneling No -Circular Undermining No -Exudate Amt Medium -Exudate Type Serosanguineous -Wound Margin Distinct, Outline Attached -Granulation Amt Medium (34-66%) -Granulation Quality Red -Slough/Fibrin Yes -Necrosis Amt Medium (34-66%) -Necrotic Tissue Type Adherent Slough -Texture (Fernando-wound Skin Appearance) Assessed, Assessed Localized Edema ,Scarring -Moisture (Fernando-wound Skin Appearance) Assessed Assessed -Color (Fernando-wound Skin Appearance) Assessed, Assessed, Erythema Ecchymosis -Temperature (Fernando-wound Skin No Abnormality Appearance) (Pt Warm) -Tenderness on Palpation (Fernando-wound No Skin Appearance) -Ulcer Cleansing Soap and Water -Foul Odor after Cleansing No -Anesthetic Used 4% Lidocaine Solution WC - Nurse 2 - General Ulcer CM Notes Start: 04/13/24 09:41 Freq: Status: Active Protocol: Activity Type Activity Date Activity User E-sign Co-sign Detail Recorded Client Recorded Date Recorded By Document 04/13/24 10:08 [facility] [id number] 04/13/24 10:40 [facility] Document 04/13/24 11:11 [id number] 04/13/24 11:14 Document 05/03/24 10:43 [id number] 05/03/24 10:46 04/13/24 04/13/24 05/03/24 10:08 11:11 10:43 Wound Center Nurse 2 #13- fernando rectal -Time 10:29 -Post Debridement (cm) - Length 2 -Post Debridement (cm) - Width 1 -Post Debridement (cm) - Depth 1.5 -Total Square (Post) (cm) 2 -Area of Debridement (cm) - Length 2 -Area of Debridement (cm) - Width 1 -Total Square (Area) (cm) 2 -Wound/Ulcer Outcome Not Healed -Ulcer Cleansing Rinsed/ Irrigated with Saline -Foul Odor after Cleansing No -Bleeding Controlled with NA #12- r buttock -Time 10:20 -Correct Patient Yes -Correct Side, Site, Position Yes -Correct Procedure Yes -Procedure Performed Yes -Type of Procedure Debridement -Clinical Debridement Muscle / Fascia -Tissue Removed Muscle,Fascia -Post Debridement (cm) - Length 7 -Post Debridement (cm) - Width 4 -Post Debridement (cm) - Depth 3.0 -Total Square (Post) (cm) 28 -Area of Debridement (cm) - Length 7 -Area of Debridement (cm) - Width 4 -Total Square (Area) (cm) 28 -Tunneling No -Undermining/Tunneling No -Circular Undermining No -Wound/Ulcer Outcome Not Healed -Ulcer Cleansing Rinsed/ Irrigated with Saline -Bleeding Controlled with Pressure, SURGIFOAM -Treatment Response Procedure Tolerated Well -Debridement - Muscle / Fascia, 1st Yes 20sq cm -Debridement, Muscle/Fascia, ea addt'l 1 20sq cm or part thereof #11- sacral -Time 10:30 -Correct Patient Yes -Correct Side, Site, Position Yes -Correct Procedure Yes -Procedure Performed Yes -Type of Procedure Debridement -Clinical Debridement Subcutaneous -Tissue Removed Subcutaneous -Post Debridement (cm) - Length 2.5 -Post Debridement (cm) - Width 4 -Post Debridement (cm) - Depth 0.3 -Total Square (Post) (cm) 10.0 -Area of Debridement (cm) - Length 2.5 -Area of Debridement (cm) - Width 4 -Total Square (Area) (cm) 10.0 -Tunneling No -Undermining/Tunneling No -Circular Undermining No -Wound/Ulcer Outcome Not Healed -Ulcer Cleansing Rinsed/ Irrigated with Saline -Foul Odor after Cleansing No -Bioengineered Tissue No -Bleeding Controlled with Pressure -Treatment Response Procedure Tolerated Well -Debridement - Subq, 1st 20sq cm Yes #10 left hallux -Time 11:12 -Correct Patient Yes Yes -Correct Side, Site, Position Yes No -Correct Procedure Yes No -Procedure Performed Yes No -Type of Procedure Debridement -Clinical Debridement Subcutaneous -Tissue Removed Subcutaneous -Post Debridement (cm) - Length 0.6 0 -Post Debridement (cm) - Width 0.8 0 -Post Debridement (cm) - Depth 0.1 0 -Total Square (Post) (cm) 0.48 0 -Area of Debridement (cm) - Length 0.6 0 -Area of Debridement (cm) - Width 0.8 0 -Total Square (Area) (cm) 0.48 0 -Tunneling No -Undermining/Tunneling No -Circular Undermining No -Wound/Ulcer Outcome Not Healed Healed- Epithelialized -Ulcer Cleansing Rinsed/ Irrigated with Saline -Foul Odor after Cleansing No -Bioengineered Tissue No -Bleeding Controlled with Pressure -Treatment Response Procedure Tolerated Well -Offloading No -Debridement - Subq, 1st 20sq cm Yes Pain Scale: 0-10 Numeric Is Patient Pain Free? Yes Yes Yes WC - Nurse 3 - General Ulcer D/C NN Start: 04/13/24 09:41 Freq: Status: Active Protocol: Activity Type Activity Date Activity User E-sign Co-sign Detail Recorded Client Recorded Date Recorded By Document 04/13/24 11:14 DL [id number] 04/13/24 11:18 DL Edit Result 04/13/24 11:14 DL (1) [id number] 04/14/24 12:02 [facility] Document 05/03/24 10:52 JF [id number] 05/03/24 10:52 JF (1) #12- r buttock - Primary Dressing Applied => Surgifoam - Surgifoam 12-7mm (3/4 x 2 3/8) => 2 04/13/24 05/03/24 11:14 10:52 Wound Care Center Nurse 3 #13- fernando rectal -Ulcer Cleansing Soap and Water -Foul Odor after Cleansing No -Other Dressing dakins -Primary Dressing Covered/Secured with Dry Gauze, Secured with Tape #12- r buttock -Ulcer Cleansing Soap and Water -Foul Odor after Cleansing No -Primary Dressing Applied Surgifoam -Other Dressing dakins -Primary Dressing Covered/Secured with Dry Gauze, Secured with Tape -Surgifoam 12-7mm (3/4 x 2 3/8) 2 #11- sacral -Ulcer Cleansing Soap and Water -Foul Odor after Cleansing No -Primary Dressing Applied Fibracol Plus 4x4 -Primary Dressing Covered/Secured with Dry Gauze, Secured with Tape -Fibracol Plus 4x4 1 #10 left hallux -Ulcer Cleansing Rinsed/ Rinsed/ Irrigated with Irrigated with Saline Saline -Foul Odor after Cleansing No -Primary Dressing Applied Fibracol Plus 4x4 -Other Dressing betadine -Primary Dressing Covered/Secured with Dry Gauze, Dry Gauze, Secured with Secured with Tape Tape -Fibracol Plus 4x4 1 Treatment Response Procedure Tolerated Well Pain Scale: 0-10 Numeric Is Patient Pain Free? Yes Yes WC - Visit Discharge Discharge Condition Stable Stable Ambulatory Status Wheelchair Wheelchair Transportation Private Auto Private Auto Medication Reconcilliation completed & Yes provided to patient/care provider Clinical Summary of Care Provided Yes Facility Type Correction Care Facility Orders Sent Yes Assessment/Plan Assessment/Plan (1) Non-pressure chronic ulcer of other part of left foot with fat layer exposed: CODE(S): L97.522 - Non-pressure chronic ulcer of other part of left foot with fat layer exposed PLAN: Patient was examined and evaluated. All findings were discussed with the patient. All questions were answered to the patient's satisfaction. Patient will continue wound care to the sacral area and IV antibiotics per infectious disease recommendation. The patient's left foot full-thickness ulceration is now healed but shows evidence of pressure sore and educated the patient to continue to offload and sleep on her side rather than on her stomach which she was understanding of. The pressure sore was dressed with Betadine paint and Band-Aid. Dressing changes will be dispensed to the patient to have routine dressing care at the custodial facility. Follow-up at the wound care center with Dr. Mota in 1 week.
--- NOTE | 2024-05-09 11:34 | WC ---
PHOTO 05/03/24 LEFT HALLUX
== END 2024-05-03 23:59 | disposition home or self-care (01) ==
LOC: WC 10:00
PROVIDERS: PCP Family Medicine; Referring Provider Family Medicine; Visit Provider Podiatrist Foot & Ankle Surgery
DX: L97.522 Non-pressure chronic ulcer of other part of left foot with fat layer exposed (principal); L89.314 Pressure ulcer of right buttock, stage 4; L89.152 Pressure ulcer of sacral region, stage 2; A41.9 Sepsis, unspecified organism; K60.40 Rectal fistula, unspecified; D64.9 Anemia, unspecified
CPT/HCPCS: 11042; 11043; 11046; 87070; 87075; 87077; 87186; 87205; 99213; G0463

== ENCOUNTER 2024-06-01 10:30 | Outpatient (RCR) | payer MEDICARE, OTHER, SELFPAY ==
[2024-05-04 00:23] VITALS: BP 188/66; PULSE 68; RESP 16; TEMP 35.9; BMI 16.9
[2024-05-11 09:43] VITALS: BP 108/70; PULSE 98; RESP 18; TEMP 36.6; BMI 16.9
--- NOTE | 2024-05-11 11:05 | PN.PCM_ITS ---
History of Present Illness Date of Service: 05/11/24 Chief Complaint: Follow-up right buttocks wound and perirectal area and sacral wound History of Wound: 73-year-old paraplegic patient living at [facility] [place] that developed pressure ulcers on her right buttocks that is pretty deep with showing now a lot of fat tissue. Also has some hardened erythematous tissue around the edge of the wound and currently they have been using honey on the wound base. She also has a sacral wound that is has some depth also from pressure. She states she is currently taking doxycycline and they have been doing wet-to-dry in the perirectal area that is open also the perirectal area is in between her vagina and her rectum it is in a very precarious place. Subjective Subjective Ms. Perales is a 74-year-old female presenting to wound care center today for follow-up evaluation of full-thickness wound to the medial eminence of the left foot. Patient wound is now healed. She is also seeing the nurse practitioner for continued wound care to her sacral region full-thickness wound. She is very grateful for care on her foot. She will continue to examine and evaluate and offload the area and decrease pressure especially in her wheelchair and in bed. She denies any new onset of trauma. Denies constitutional symptoms. No other pedal complaints at this time. Objective Data Objective Data Vital Signs: Vital Signs Temp Pulse Resp BP 98 F 98 18 108/70 05/11/24 09:43 05/11/24 09:43 05/11/24 09:43 05/11/24 09:43 Weight: 40.551 kg Body Mass Index (BMI) 16.9 Physical Exam Narrative Vascular: DP and PT pulses are faintly palpable to left lower extremity. CFT is delayed. Skin temperature gradient is warm to cool from proximal ankle to dista l digit. No erythema or proximal streaking is appreciated. Neurological: Light touch absent. Protective sensation is absent. Dermatological: Full-thickness ulceration to the first metatarsal phalangeal joint is now healed, left foot. Musculoskeletal: Muscle strength is 0 out of 5 bilateral. No pain on palpation to the healed full-thickness wound, left foot. No pain with calf pressure. Debridement Note Debridement Note Post-Debridement Measurements and Additional Note: Post-Debridement Measurements/Treatment WC - Nurse 1 - General Ulcer Assessment Start: 05/11/24 09:43 Freq: Status: Active Protocol: WC.LOWMIKET Activity Type Activity Date Activity User E-sign Co-sign Detail Recorded Client Recorded Date Recorded By Document 05/11/24 09:43 AK [id number] 05/11/24 09:59 AK 05/11/24 09:43 - Today's Visit Information Type of service Follow-up Visit (Physician/FOREIGN LEGAL CONSULTANT ) Arrival Mode Wheelchair Accompanied by self Patient Identification Verified (Name & Yes ) Safety Precautions Fall Prevention Height and Weight Body Mass Index (BMI) 16.9 BMI Classification Underweight Vital Signs Temperature (97.8 F-99.1 F) 98 F Temperature Source Temporal Pulse Rate (60-100) 98 Pulse Location Monitor Respiratory Rate (12-18) 18 Respiratory rate source Monitor Blood Pressure (90/60-120/80) 108/70 Blood Pressure Mean (mm Hg) 82 Source Monitor Position Sitting Blood Pressure Location Left Arm History Since Last Visit- (Skip if this is Patient's initial visit) Has dressing in place as prescribed Yes Has compression in place as prescribed Yes Has offloadiing in place as prescribed Yes Experienced any changes in pain level or Yes management Left Footwear Regular Shoe Right Footwear Regular Shoe Pain Scale: 0-10 Numeric Is Patient Pain Free? Yes - Nurse 1 - General Ulcer Measurement Start: 05/11/24 09:43 Freq: Status: Active Protocol: Activity Type Activity Date Activity User E-sign Co-sign Detail Recorded Client Recorded Date Recorded By Document 05/11/24 09:43 AK [id number] 05/11/24 09:59 AK 05/11/24 09:43 Wound Center Nurse 1 #10 left hallux -Current Size (cm) - Length 0.1 -Current Size (cm) - Width 0.1 -Current Size (cm) - Depth 0.1 -Total Square Cm 0.01 -Texture (Leyla-wound Skin Appearance) Assessed -Moisture (Leyla-wound Skin Appearance) Assessed -Color (Leyla-wound Skin Appearance) Assessed -Temperature (Leyla-wound Skin No Abnormality Appearance) (Pt Warm) -Tenderness on Palpation (Leyla-wound No Skin Appearance) -Ulcer Cleansing Rinsed/ Irrigated with Saline -Anesthetic Used 5% Lidocaine Gel #14 Right Buttock -Current Size (cm) - Length 8.5 -Current Size (cm) - Width 9.4 -Total Square Cm 79.90 -Date of Last Picture (Recall this 05/11/24 field) -Photo Taken Yes -Tunneling Yes -Tunneling Position (O'clock) 9 -Tunneling Distance (cm) 4.8 -Exudate Amt None Present -Wound Margin Flat & Intact -Granulation Amt Large (67-100%) -Granulation Quality Avis,Red -Slough/Fibrin No -Texture (Leyla-wound Skin Appearance) Assessed -Moisture (Leyla-wound Skin Appearance) Assessed -Color (Leyla-wound Skin Appearance) Assessed -Temperature (Leyla-wound Skin No Abnormality Appearance) (Pt Warm) -Tenderness on Palpation (Leyla-wound No Skin Appearance) -Ulcer Cleansing Rinsed/ Irrigated with Saline -Anesthetic Used 4% Lidocaine Solution Lower Limb Edema Present NA WC - Nurse 2 - General Ulcer CM Notes Start: 05/11/24 09:43 Freq: Status: Active Protocol: Activity Type Activity Date Activity User E-sign Co-sign Detail Recorded Client Recorded Date Recorded By Document 05/11/24 10:07 [facility] [id number] 05/11/24 10:26 [facility] Document 05/11/24 10:34 [id number] 05/11/24 10:34 05/11/24 05/11/24 10:07 10:34 Wound Center Nurse 2 #10 left hallux -Correct Patient No -Correct Side, Site, Position No -Correct Procedure No -Procedure Performed No -Post Debridement (cm) - Length 0 -Post Debridement (cm) - Width 0 -Post Debridement (cm) - Depth 0 -Total Square (Post) (cm) 0 -Area of Debridement (cm) - Length 0 -Area of Debridement (cm) - Width 0 -Total Square (Area) (cm) 0 -Wound/Ulcer Outcome Healed- Epithelialized #14 Right Buttock -Time 10:08 -Correct Patient Yes -Correct Side, Site, Position Yes -Correct Procedure Yes -Procedure Performed Yes -Type of Procedure Debridement -Clinical Debridement Muscle / Fascia -Tissue Removed Muscle,Fascia -Post Debridement (cm) - Length 7.5 -Post Debridement (cm) - Width 5.5 -Post Debridement (cm) - Depth 5.5 -Total Square (Post) (cm) 41.25 -Area of Debridement (cm) - Length 7.5 -Area of Debridement (cm) - Width 5.5 -Total Square (Area) (cm) 41.25 -Tunneling No -Undermining/Tunneling No -Circular Undermining No -Wound/Ulcer Outcome Not Healed -Ulcer Cleansing Rinsed/ Irrigated with Saline -Foul Odor after Cleansing No -Bioengineered Tissue No -Bleeding Controlled with Pressure, SURGIFOAM -Treatment Response Procedure Tolerated Well -Debridement - Muscle / Fascia, 1st Yes 20sq cm -Debridement, Muscle/Fascia, ea addt'l 1 20sq cm or part thereof #11- sacral -Time 10:15 -Correct Patient Yes -Correct Side, Site, Position Yes -Correct Procedure Yes -Procedure Performed Yes -Type of Procedure Debridement -Clinical Debridement Subcutaneous -Tissue Removed Subcutaneous -Post Debridement (cm) - Length 2 -Post Debridement (cm) - Width 1.9 -Post Debridement (cm) - Depth 0.2 -Total Square (Post) (cm) 3.8 -Area of Debridement (cm) - Length 2 -Area of Debridement (cm) - Width 1.9 -Total Square (Area) (cm) 3.8 -Tunneling No -Undermining/Tunneling No -Circular Undermining No -Wound/Ulcer Outcome Not Healed -Ulcer Cleansing Rinsed/ Irrigated with Saline -Foul Odor after Cleansing No -Bleeding Controlled with Pressure -Treatment Response Procedure Tolerated Well -Debridement - Subq, 1st 20sq cm Yes Pain Scale: 0-10 Numeric Is Patient Pain Free? 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 All findings were discussed with the patient. All questions were answered to the patient's satisfaction. The patient's left foot wound is now healed. Educated the patient to apply lotion or Vaseline to keep the area hydrated and continue to offload and check her feet twice per day. She will continue to wear her offloading boots when in bed and can even use her offloading boots when in her wheelchair. The patient will continue to follow-up and to be evaluated by the nurse practitioner for her sacral wound at the wound care center. If she has any issues with her feet she can always let us know and I can be reactivated to evaluate the patient to help heal any issues with her bilateral lower extremities. The patient was very grateful for care. She will follow-up the wound care center with Dr. Mota as needed.
--- NOTE | 2024-05-11 12:35 | PCM.WC.PN ---
History of Present Illness Date of Service: 05/11/24 Chief Complaint: Follow-up right buttocks wound History of Wound: 73-year-old paraplegic patient living at [facility] that developed pressure ulcers on her right buttocks that is pretty deep with showing now a lot of fat tissue and necrotic tissue.. Also has some hardened erythematous tissue around the edge of the wound and currently they have been using honey on the wound base. She also has a sacral wound that is has some depth also from pressure. She states she is currently taking doxycycline and they have been doing wet-to-dry in the perirectal area that is open also the perirectal area is in between her vagina and her rectum it is in a very precarious place. Patient was referred to the emergency room to be transferred to a plastic surgeon or regular surgery for debridement. Progress of Wound: Patient was referred to [facility] and had a debridement on April 14 and since then they have been doing wet-to-dry with a Vashe wash. [facility] have been doing them twice a day and covering with a foam dressing. The wound itself looks wonderful its beefy red and it is filling and she does have a lot of depth of about 4 to 6 cm's in depth. We will continue using the wet to dry soaked in Vashe wash. She is supposed to follow-up with surgery in a couple of weeks and will make sure that she gets that scheduled. Patient also has a sacral wound that is still got a thick layer of moist skin over top that will be debrided off. Patient is feeling better though she is showing signs of anemia but it is better than what it was when she first was at the hospital at or below 8 she is up to 9.8 on her hemoglobin since April. We will have a repeat of her prealbumin [facility]. Wound cultures will be obtained today just to make sure everything is stable patient feels well but she has no feeling from her waist down so we will continue to monitor her. She is on a low air mattress and she does have a Gelfoam pad for her wheelchair she lays down most of the day and is up on either side briefly. Patient is to restart her Leeroy's and start drinking more protein. Subjective Subjective Patient is agreeable to plan and happy that we had sent her to the hospital the first time. Objective Data Objective Data As stated above we will continue with the wet-to-dry dressings twice a day at the [facility] [place]. We will start a sacral wound will do fibber call with [employer] every day with a foam dressing over that also. The wound itself looks very good and it is all beefy red bleeds easily tolerating treatments well. Vital Signs: Vital Signs Temp Pulse Resp BP 98 F 98 18 108/70 05/11/24 09:43 05/11/24 09:43 05/11/24 09:43 05/11/24 09:43 Weight: 89 lb 6.4 oz Body Mass Index (BMI) 16.9 Patient is showing some malnutrition was restart the Leeroy and if she has to she can take Premier or any 1 of those other protein drinks that she wants along with her meal take. Lab / Micro Data Attestation: I reviewed the patient's lab results. Physical Exam Const oriented x3 General Appearance: cooperative Orientation / Consciousness: oriented to person, oriented to place and oriented to time Exam Limitations: no limitations Nutritional Appearance: cachectic, underweight and thin HEENT normocephalic Head and Scalp: normal to inspection External Ear: external ears normal Eyes PERRL General Eye: normal appearance of both eyes Neck full ROM General: normal visual inspection Resp normal respiratory effort Effort and Inspection: able to speak in complete sentences Auscultation: clear to auscultation bilaterally Cardio regular rate and regular rhythm Palpation: normal PMI Rate: regular rate Rhythm: regular rhythm GI Rectal Exam: visual inspection abnormal, fistula and other Other Details: Open wound left buttocks and perirectal may be fistula going on. Back/Spine Back/Spine Narrative: Paralysis from waist down Cervical Spine: cervical ROM normal Pelvis: buttocks abnormal right and other soft tissue findings Wound on her coccyx area Skin no rashes or lesions noted Skin Narrative: Open wounds on left buttocks with positive depth and infection possible sepsis sacral area open area nonhealing and perirectal area possibly a fistula. Wounds: wounds noted Wound Narrative: Open wound on coccyx stage II Right buttocks wound stage IV Neuro oriented x3 Psych Appearance: grossly normal Attitude: calm Activity / Motor Behavior: appropriate eye contact Speech: normal speech Mood & Affect: euthymic mood Thought Process: normal thought process Thought Content: normal thought content Attention / Concentration: attention grossly intact Memory / Cognition: memory grossly intact Insight: insight good Judgement: judgement good Debridement Note Debridement Note Wound debrided: Right buttocks decubitus ulcer Laterality: Right Wound Grade/Stage: Stage IV Type of Debridement: Excisional debridement Anesthesia Used: 5% Lidocaine Gel Depth: in the subcutaneous layer and to muscle Percentage of wound debrided: 100 Instrument Used: 7mm curette Tissue Removed: Fibrin Severity: Fat Layer Exposed (To the muscles) Amount of bleeding with debridement: Moderate Bleeding Controlled with: Compression and gauze Patient tolerated procedure: Patient tolerated procedure well Post-Debridement Measurements and Additional Note: Post-Debridement Measurements/Treatment - Nurse 1 - General Ulcer Assessment Start: 05/11/24 09:43 Freq: Status: Active Protocol: JOSEPHINE Activity Type Activity Date Activity User E-sign Co-sign Detail Recorded Client Recorded Date Recorded By Document 05/11/24 09:43 ID [id number] 05/11/24 09:59 ID 05/11/24 09:43 WC - Today's Visit Information Type of service Follow-up Visit (Physician/BOARD HANDLER ) Arrival Mode Wheelchair Accompanied by self Patient Identification Verified (Name & Yes ) Safety Precautions Fall Prevention Height and Weight Body Mass Index (BMI) 16.9 BMI Classification Underweight Vital Signs Temperature (97.8 F-99.1 F) 98 F Temperature Source Temporal Pulse Rate (60-100) 98 Pulse Location Monitor Respiratory Rate (12-18) 18 Respiratory rate source Monitor Blood Pressure (90/60-120/80) 108/70 Blood Pressure Mean (mm Hg) 82 Source Monitor Position Sitting Blood Pressure Location Left Arm History Since Last Visit- (Skip if this is Patient's initial visit) Has dressing in place as prescribed Yes Has compression in place as prescribed Yes Has offloadiing in place as prescribed Yes Experienced any changes in pain level or Yes management Left Footwear Regular Shoe Right Footwear Regular Shoe Pain Scale: 0-10 Numeric Is Patient Pain Free? Yes - Nurse 1 - General Ulcer Measurement Start: 05/11/24 09:43 Freq: Status: Active Protocol: Activity Type Activity Date Activity User E-sign Co-sign Detail Recorded Client Recorded Date Recorded By Document 05/11/24 09:43 ID [id number] 05/11/24 09:59 ID 05/11/24 09:43 Wound Center Nurse 1 #10 left hallux -Current Size (cm) - Length 0.1 -Current Size (cm) - Width 0.1 -Current Size (cm) - Depth 0.1 -Total Square Cm 0.01 -Texture (Leyla-wound Skin Appearance) Assessed -Moisture (Leyla-wound Skin Appearance) Assessed -Color (Leyla-wound Skin Appearance) Assessed -Temperature (Leyla-wound Skin No Abnormality Appearance) (Pt Warm) -Tenderness on Palpation (Leyla-wound No Skin Appearance) -Ulcer Cleansing Rinsed/ Irrigated with Saline -Anesthetic Used 5% Lidocaine Gel #14 Right Buttock -Current Size (cm) - Length 8.5 -Current Size (cm) - Width 9.4 -Total Square Cm 79.90 -Date of Last Picture (Recall this 05/11/24 field) -Photo Taken Yes -Tunneling Yes -Tunneling Position (O'clock) 9 -Tunneling Distance (cm) 4.8 -Exudate Amt None Present -Wound Margin Flat & Intact -Granulation Amt Large (67-100%) -Granulation Quality Rosebud,Red -Slough/Fibrin No -Texture (Leyla-wound Skin Appearance) Assessed -Moisture (Leyla-wound Skin Appearance) Assessed -Color (Leyla-wound Skin Appearance) Assessed -Temperature (Leyla-wound Skin No Abnormality Appearance) (Pt Warm) -Tenderness on Palpation (Leyla-wound No Skin Appearance) -Ulcer Cleansing Rinsed/ Irrigated with Saline -Anesthetic Used 4% Lidocaine Solution Lower Limb Edema Present NA WC - Nurse 2 - General Ulcer CM Notes Start: 05/11/24 09:43 Freq: Status: Active Protocol: Activity Type Activity Date Activity User E-sign Co-sign Detail Recorded Client Recorded Date Recorded By Document 05/11/24 10:07 BMF [id number] 05/11/24 10:26 BMF Edit Result 05/11/24 10:07 BMF (1) [id number] 05/11/24 11:55 BMF Document 05/11/24 10:34 JF [id number] 05/11/24 10:34 JF (1) #14 Right Buttock - Bleeding Controlled with Pressure,SURGIFOAM => Pressure #11- sacral - Bleeding Controlled with Pressure => Pressure,SURGIFOAM 05/11/24 05/11/24 10:07 10:34 Wound Center Nurse 2 #10 left hallux -Correct Patient No -Correct Side, Site, Position No -Correct Procedure No -Procedure Performed No -Post Debridement (cm) - Length 0 -Post Debridement (cm) - Width 0 -Post Debridement (cm) - Depth 0 -Total Square (Post) (cm) 0 -Area of Debridement (cm) - Length 0 -Area of Debridement (cm) - Width 0 -Total Square (Area) (cm) 0 -Wound/Ulcer Outcome Healed- Epithelialized #14 Right Buttock -Time 10:08 -Correct Patient Yes -Correct Side, Site, Position Yes -Correct Procedure Yes -Procedure Performed Yes -Type of Procedure Debridement -Clinical Debridement Muscle / Fascia -Tissue Removed Muscle,Fascia -Post Debridement (cm) - Length 7.5 -Post Debridement (cm) - Width 5.5 -Post Debridement (cm) - Depth 5.5 -Total Square (Post) (cm) 41.25 -Area of Debridement (cm) - Length 7.5 -Area of Debridement (cm) - Width 5.5 -Total Square (Area) (cm) 41.25 -Tunneling No -Undermining/Tunneling No -Circular Undermining No -Wound/Ulcer Outcome Not Healed -Ulcer Cleansing Rinsed/ Irrigated with Saline -Foul Odor after Cleansing No -Bioengineered Tissue No -Bleeding Controlled with Pressure -Treatment Response Procedure Tolerated Well -Debridement - Muscle / Fascia, 1st Yes 20sq cm -Debridement, Muscle/Fascia, ea addt'l 1 20sq cm or part thereof #11- sacral -Time 10:15 -Correct Patient Yes -Correct Side, Site, Position Yes -Correct Procedure Yes -Procedure Performed Yes -Type of Procedure Debridement -Clinical Debridement Subcutaneous -Tissue Removed Subcutaneous -Post Debridement (cm) - Length 2 -Post Debridement (cm) - Width 1.9 -Post Debridement (cm) - Depth 0.2 -Total Square (Post) (cm) 3.8 -Area of Debridement (cm) - Length 2 -Area of Debridement (cm) - Width 1.9 -Total Square (Area) (cm) 3.8 -Tunneling No -Undermining/Tunneling No -Circular Undermining No -Wound/Ulcer Outcome Not Healed -Ulcer Cleansing Rinsed/ Irrigated with Saline -Foul Odor after Cleansing No -Bleeding Controlled with Pressure, SURGIFOAM -Treatment Response Procedure Tolerated Well -Debridement - Subq, 1st 20sq cm Yes Pain Scale: 0-10 Numeric Is Patient Pain Free? Yes Yes WC - Nurse 3 - General Ulcer D/C NN Start: 05/11/24 09:43 Freq: Status: Active Protocol: Activity Type Activity Date Activity User E-sign Co-sign Detail Recorded Client Recorded Date Recorded By Document 05/11/24 11:04 DL [id number] 05/11/24 11:08 DL 05/11/24 11:04 Wound Care Center Nurse 3 #14 Right Buttock -Ulcer Cleansing Soap and Water -Foul Odor after Cleansing No -Other Dressing Dakins -Primary Dressing Covered/Secured with Dry Gauze, Secured with Tape -Other Covering ABD #11- sacral -Foul Odor after Cleansing No -Primary Dressing Applied Surgifoam -Other Dressing Surgifoam/ABD -Primary Dressing Covered/Secured with Secured with Tape -Surgifoam 12-7mm (3/4 x 2 3/8) 3 -Wound Comment(s) Surgifoam x3 used today. ECF to resume fibracol at ECF . Treatment Response Procedure Tolerated Well Pain Scale: 0-10 Numeric Is Patient Pain Free? Yes WC - Visit Discharge Discharge Condition Stable Ambulatory Status Wheelchair Facility Type [employer] [facility] Care Facility Orders Sent Yes Additional Wound Wound debrided: Sacral wound Wound Grade/Stage: Stage II Type of Debridement: Excisional debridement Anesthesia Used: 5% Lidocaine Gel Depth: in the subcutaneous layer Percentage of wound debrided: 100 Instrument Used: 5mm curette Tissue Removed: Devitalized tissue fibrin Severity: Fat Layer Exposed Amount of bleeding with debridement: Moderate Bleeding Controlled with: Compression and gauze and Gel Foam Patient tolerated procedure: Patient tolerated procedure well Assessment/Plan Assessment/Plan (1) Decubitus ulcer of sacral region, stage 2: CODE(S): L89.152 - Pressure ulcer of sacral region, stage 2 PLAN: Wash area with antibacterial soap and water apply fibracol to wound base Adaptic and then cover with Berry SAP foam dressing every day (2) Decubitus ulcer of right buttock, stage 4: CODE(S): L89.314 - Pressure ulcer of right buttock, stage 4 PLAN: For now packed with Vashe wash and cover with gauze and foam dressing twice daily Wound cultures obtained will call with results Follow-up with surgeon next 2 weeks Follow-up with us in 1 week (3) Chronic anemia: CODE(S): D64.9 - Anemia, unspecified PLAN: Recheck to make sure she does not need to be transfused.
--- NOTE | 2024-05-12 12:28 | WC ---
PHOTO 05/11/24 RIGHT BUTTOCK
[2024-05-18 08:39] VITALS: BP 136/62; PULSE 91; RESP 18; TEMP 36.5; BMI 16.9
--- NOTE | 2024-05-18 09:58 | PCM.WC.PN ---
History of Present Illness Date of Service: 05/18/24 Chief Complaint: Follow-up right buttocks wound History of Wound: 73-year-old paraplegic patient living at [facility] that developed pressure ulcers on her right buttocks that is pretty deep with showing now a lot of fat tissue and necrotic tissue.. Also has some hardened erythematous tissue around the edge of the wound and currently they have been using honey on the wound base. She also has a sacral wound that is has some depth also from pressure. She states she is currently taking doxycycline and they have been doing wet-to-dry in the perirectal area that is open also the perirectal area is in between her vagina and her rectum it is in a very precarious place. Patient was referred to the emergency room to be transferred to a plastic surgeon or regular surgery for debridement. Progress of Wound: Patient was referred to [facility] and had a debridement on April 14 and since then they have been doing wet-to-dry with a Vashe wash. At the snf they have been doing them twice a day and covering with a foam dressing. The wound itself looks wonderful its beefy red and it is filling and she does have a lot of depth of about 4 to 6 cm's in depth. We will continue using the wet to dry soaked in Vashe wash. She is supposed to follow-up with surgery in a couple of weeks and will make sure that she gets that scheduled. Patient also has a sacral wound that is still got a thick layer of moist skin over top that will be debrided off. Patient is feeling better though she is showing signs of anemia but it is better than what it was when she first was at the hospital at or below 8 she is up to 9.8 on her hemoglobin since April. We will have a repeat of her prealbumin done from the snf. Wound cultures came back rare. Patient feels well but she has no feeling from her waist down so we will continue to monitor her. Will continue culturing her monthly, she is currently on a waffle foam mattress we will try to get her on a low air mattress and she does have a Gelfoam pad for her wheelchair she lays down most of the day and i we have canceled PT for now and she is to stay in bed and roll off that 1 side continuously Patient is to restart her Leeroy's and start drinking more protein. Subjective Subjective Patient had labs drawn but not the prealbumin. Will reorder the prealbumin she is also showing anemia it is lower than it was the last time so we will start her on iron tablets and B12 injections weekly Objective Data Objective Data The wound itself looks very good it appears to be smaller and less depth they are packing it twice a day which is very good and the wash seems to be helping a lot with healing. She questioned about a wound VAC but I do not think we can get a wound VAC to stick words at only because of it so close to her anus in her bathroom going might interfere with the suction and the the ability for her to stick to the skin. Vital Signs: Vital Signs Temp Pulse Resp BP 97.7 F L 91 18 136/62 H 05/18/24 08:39 05/18/24 08:39 05/18/24 08:39 05/18/24 08:39 Weight: 89 lb 6.4 oz Body Mass Index (BMI) 16.9 Lab / Micro Data Attestation: I reviewed the patient's lab results. Lab results narrative: Patient shows anemia malnutrition elevated white count Her albumin levels are still very low so I assume she has malnutrition. Micro: Microbiology 05/11/24 10:15 Wound - Buttock Gram Stain - Final 05/11/24 10:15 Wound - Buttock Wound Culture - Final Enterobacter cloacae complex Staphylococcus epidermidis Corynebacterium minutissimum 05/11/24 10:15 Wound - Buttock Anaerobic Culture - Final Cutibacterium acnes Physical Exam Const oriented x3 General Appearance: cooperative Orientation / Consciousness: oriented to person, oriented to place and oriented to time Exam Limitations: no limitations Nutritional Appearance: cachectic, underweight and thin HEENT normocephalic Head and Scalp: normal to inspection External Ear: external ears normal Eyes PERRL General Eye: normal appearance of both eyes Neck full ROM General: normal visual inspection Resp normal respiratory effort Effort and Inspection: able to speak in complete sentences Auscultation: clear to auscultation bilaterally Cardio regular rate and regular rhythm Palpation: normal PMI Rate: regular rate Rhythm: regular rhythm GI Rectal Exam: visual inspection abnormal, fistula and other Other Details: Open wound left buttocks and perirectal may be fistula going on. Back/Spine Back/Spine Narrative: Paralysis from waist down Cervical Spine: cervical ROM normal Pelvis: buttocks abnormal right and other soft tissue findings Wound on her coccyx area Skin no rashes or lesions noted Skin Narrative: Open wounds on left buttocks with positive depth and infection possible sepsis sacral area open area nonhealing and perirectal area possibly a fistula. Wounds: wounds noted Wound Narrative: Open wound on coccyx stage II Right buttocks wound stage IV Neuro oriented x3 Psych Appearance: grossly normal Attitude: calm Activity / Motor Behavior: appropriate eye contact Speech: normal speech Mood & Affect: euthymic mood Thought Process: normal thought process Thought Content: normal thought content Attention / Concentration: attention grossly intact Memory / Cognition: memory grossly intact Insight: insight good Judgement: judgement good Debridement Note Debridement Note Wound debrided: Right buttocks decubitus ulcer Laterality: Right Wound Grade/Stage: Stage IV Type of Debridement: Excisional debridement Anesthesia Used: 5% Lidocaine Gel Depth: in the subcutaneous layer and to muscle Percentage of wound debrided: 100 Instrument Used: 7mm curette Tissue Removed: Fibrin Severity: Fat Layer Exposed (To the muscles) Amount of bleeding with debridement: Moderate Bleeding Controlled with: Compression and gauze Patient tolerated procedure: Patient tolerated procedure well Post-Debridement Measurements and Additional Note: Post-Debridement Measurements/Treatment - Nurse 1 - General Ulcer Assessment Start: 05/11/24 09:43 Freq: Status: Active Protocol: [email or web address] Activity Type Activity Date Activity User E-sign Co-sign Detail Recorded Client Recorded Date Recorded By Document 05/11/24 09:43 MT [id number] 05/11/24 09:59 MT Document 05/18/24 08:39 KW [id number] 05/18/24 08:44 KW 05/11/24 05/18/24 09:43 08:39 - Today's Visit Information Type of service Follow-up Visit Follow-up Visit (Physician/NAPPER RUNNER (Physician/NAPPER RUNNER ) ) Arrival Mode Wheelchair Wheelchair Transfer Assistance Other Transfer Assist (Other) x2 Accompanied by self Patient Identification Verified (Name & Yes Yes ) Patient Requires Transmission-Based No Precautions Safety Precautions Fall Prevention Height and Weight Body Mass Index (BMI) 16.9 16.9 BMI Classification Underweight Underweight Vital Signs Temperature (97.8 F-99.1 F) 98 F 97.7 F L Temperature Source Temporal Temporal Pulse Rate (60-100) 98 91 Pulse Location Monitor Monitor Respiratory Rate (12-18) 18 18 Respiratory rate source Monitor Observation Blood Pressure (90/60-120/80) 108/70 136/62 H Blood Pressure Mean (mm Hg) 82 86 Source Monitor Monitor Position Sitting Blood Pressure Location Left Arm History Since Last Visit- (Skip if this is Patient's initial visit) Have you changed medications since your No last visit? Any new allergies or adverse reactions No Had a fall/change in ADL's that may No increase risk of falls Signs or symptoms of abuse and/or No neglect since last visit Have you been in the hospital since your No last visit? Has dressing in place as prescribed Yes Yes Has compression in place as prescribed Yes N/A Has offloadiing in place as prescribed Yes Yes Experienced any changes in pain level or Yes No management Left Footwear Regular Shoe Right Footwear Regular Shoe Pain Scale: 0-10 Numeric Is Patient Pain Free? Yes Yes WC - Nurse 1 - General Ulcer Measurement Start: 05/11/24 09:43 Freq: Status: Active Protocol: Activity Type Activity Date Activity User E-sign Co-sign Detail Recorded Client Recorded Date Recorded By Document 05/11/24 09:43 MT [id number] 05/11/24 09:59 MT Document 05/18/24 08:39 KW [id number] 05/18/24 08:44 KW 05/11/24 05/18/24 09:43 08:39 Wound Center Nurse 1 #10 left hallux -Current Size (cm) - Length 0.1 -Current Size (cm) - Width 0.1 -Current Size (cm) - Depth 0.1 -Total Square Cm 0.01 -Texture (Leyla-wound Skin Appearance) Assessed -Moisture (Leyla-wound Skin Appearance) Assessed -Color (Leyla-wound Skin Appearance) Assessed -Temperature (Leyla-wound Skin No Abnormality Appearance) (Pt Warm) -Tenderness on Palpation (Leyla-wound No Skin Appearance) -Ulcer Cleansing Rinsed/ Irrigated with Saline -Anesthetic Used 5% Lidocaine Gel #14 Right Buttock -Current Size (cm) - Length 8.5 6 -Current Size (cm) - Width 9.4 5.2 -Current Size (cm) - Depth 3.1 -Total Square Cm 79.90 31.2 -Date of Last Picture (Recall this 05/11/24 field) -Photo Taken Yes Yes -Tunneling Yes -Tunneling Position (O'clock) 9 -Tunneling Distance (cm) 4.8 -Classification - Thickness Full Thickness without Exposed Support Structure -Exudate Amt None Present Medium -Exudate Type Serosanguineous -Wound Margin Flat & Intact Distinct, Outline Attached -Granulation Amt Large (67-100%) Large (67-100%) -Granulation Quality [place],Red Red -Slough/Fibrin No -Necrosis Amt None Present (0 %) -Structure Exposed N/A -Texture (Leyla-wound Skin Appearance) Assessed Scarring -Moisture (Leyla-wound Skin Appearance) Assessed Maceration -Color (Leyla-wound Skin Appearance) Assessed No Abnormality -Temperature (Leyla-wound Skin No Abnormality No Abnormality Appearance) (Pt Warm) (Pt Warm) -Tenderness on Palpation (Leyla-wound No Skin Appearance) -Ulcer Cleansing Rinsed/ Soap and Water Irrigated with Saline -Anesthetic Used 4% Lidocaine 5% Lidocaine Solution Gel #11- sacral -Current Size (cm) - Length 2 -Current Size (cm) - Width 1.5 -Current Size (cm) - Depth 0.2 -Total Square Cm 3.0 -Photo Taken Yes -Exudate Amt Medium -Wound Margin Distinct, Outline Attached -Granulation Amt None Present (0 %) -Necrosis Amt Medium (34-66%) -Necrotic Tissue Type Adherent Slough -Structure Exposed N/A -Texture (Leyla-wound Skin Appearance) Scarring -Moisture (Leyla-wound Skin Appearance) No Abnormality -Color (Leyla-wound Skin Appearance) No Abnormality -Temperature (Leyla-wound Skin No Abnormality Appearance) (Pt Warm) -Tenderness on Palpation (Leyla-wound No Skin Appearance) -Ulcer Cleansing Soap and Water -Foul Odor after Cleansing No -Anesthetic Used 5% Lidocaine Gel Lower Limb Edema Present NA WC - Nurse 2 - General Ulcer CM Notes Start: 05/11/24 09:43 Freq: Status: Active Protocol: Activity Type Activity Date Activity User E-sign Co-sign Detail Recorded Client Recorded Date Recorded By Document 05/11/24 10:07 BMF [id number] 05/11/24 10:26 BMF Edit Result 05/11/24 10:07 BM (1) [id number] 05/11/24 11:55 BMF Document 05/11/24 10:34 [id number] 05/11/24 10:34 JF Document 05/18/24 08:57 [facility] [id number] 05/18/24 09:13 [facility] (1) #14 Right Buttock - Bleeding Controlled with Pressure,SURGIFOAM => Pressure #11- sacral - Bleeding Controlled with Pressure => Pressure,SURGIFOAM 05/11/24 05/11/24 05/18/24 10:07 10:34 08:57 Wound Center Nurse 2 #10 left hallux -Correct Patient No -Correct Side, Site, Position No -Correct Procedure No -Procedure Performed No -Post Debridement (cm) - Length 0 -Post Debridement (cm) - Width 0 -Post Debridement (cm) - Depth 0 -Total Square (Post) (cm) 0 -Area of Debridement (cm) - Length 0 -Area of Debridement (cm) - Width 0 -Total Square (Area) (cm) 0 -Wound/Ulcer Outcome Healed- Epithelialized #14 Right Buttock -Time 10:08 08:59 -Correct Patient Yes Yes -Correct Side, Site, Position Yes Yes -Correct Procedure Yes Yes -Procedure Performed Yes Yes -Type of Procedure Debridement Debridement -Clinical Debridement Muscle / Fascia Muscle / Fascia -Tissue Removed Muscle,Fascia Muscle,Fascia -Post Debridement (cm) - Length 7.5 5 -Post Debridement (cm) - Width 5.5 6.5 -Post Debridement (cm) - Depth 5.5 4.8 -Total Square (Post) (cm) 41.25 32.5 -Area of Debridement (cm) - Length 7.5 5 -Area of Debridement (cm) - Width 5.5 6.5 -Total Square (Area) (cm) 41.25 32.5 -Tunneling No No -Undermining/Tunneling No No -Circular Undermining No No -Wound/Ulcer Outcome Not Healed Not Healed -Ulcer Cleansing Rinsed/ Rinsed/ Irrigated with Irrigated with Saline Saline -Foul Odor after Cleansing No No -Bioengineered Tissue No No -Bleeding Controlled with Pressure Pressure -Treatment Response Procedure Procedure Tolerated Well Tolerated Well -Debridement - Muscle / Fascia, 1st Yes Yes 20sq cm -Debridement, Muscle/Fascia, ea addt'l 1 1 20sq cm or part thereof #11- sacral -Time 10:15 09:02 -Correct Patient Yes Yes -Correct Side, Site, Position Yes Yes -Correct Procedure Yes Yes -Procedure Performed Yes Yes -Type of Procedure Debridement Debridement -Clinical Debridement Subcutaneous Subcutaneous -Tissue Removed Subcutaneous Subcutaneous -Post Debridement (cm) - Length 2 1.7 -Post Debridement (cm) - Width 1.9 1.3 -Post Debridement (cm) - Depth 0.2 0.1 -Total Square (Post) (cm) 3.8 2.21 -Area of Debridement (cm) - Length 2 1.7 -Area of Debridement (cm) - Width 1.9 1.3 -Total Square (Area) (cm) 3.8 2.21 -Tunneling No No -Undermining/Tunneling No No -Circular Undermining No No -Wound/Ulcer Outcome Not Healed Not Healed -Ulcer Cleansing Rinsed/ Rinsed/ Irrigated with Irrigated with Saline Saline -Foul Odor after Cleansing No No -Bioengineered Tissue No -Bleeding Controlled with Pressure, Pressure SURGIFOAM -Treatment Response Procedure Procedure Tolerated Well Tolerated Well -Debridement - Subq, 1st 20sq cm Yes Yes Pain Scale: 0-10 Numeric Is Patient Pain Free? Yes Yes Yes - Nurse 3 - General Ulcer D/C NN Start: 05/11/24 09:43 Freq: Status: Active Protocol: Activity Type Activity Date Activity User E-sign Co-sign Detail Recorded Client Recorded Date Recorded By Document 05/11/24 11:04 DL [id number] 05/11/24 11:08 DL Document 05/18/24 09:33 RB [id number] 05/18/24 09:34 RB Edit Result 05/18/24 09:33 RB (1) [id number] 05/18/24 09:35 RB Edit Result 05/18/24 09:33 RB (2) [id number] 05/18/24 09:35 RB Edit Result 05/18/24 09:33 RB (3) [id number] 05/18/24 09:46 RB (1) #14 Right Buttock - Silicone Border Foam 6x6 => 1 #11- sacral - Silicone Border Foam 4x4 => 1 (2) #11- sacral - Fibracol Plus 4x4 => 1 (3) #11- sacral - Primary Dressing Applied Fibracol Plus 4x4, => Fibracol Plus 4x4, Silicone Border => NonAdherent Foam 4x4 => Contact Layer, => Silicone Border => Foam 4x4 01/08/25 01/15/25 11:04 09:33 Wound Care Center Nurse 3 #14 Right Buttock -Ulcer Cleansing Soap and Water -Foul Odor after Cleansing No -Primary Dressing Applied Silicone Border Foam 6x6 -Other Dressing Dakins dakins moistened gauze -Primary Dressing Covered/Secured with Dry Gauze, Secured with Tape -Other Covering ABD -Silicone Border Foam 6x6 1 #11- sacral -Ulcer Cleansing Rinsed/ Irrigated with Saline -Foul Odor after Cleansing No -Primary Dressing Applied Surgifoam -Primary Dressing Applied Fibracol Plus 4x4,NonAdherent Contact Layer, Silicone Border Foam 4x4 -Other Dressing Surgifoam/ABD -Primary Dressing Covered/Secured with Secured with Tape -Fibracol Plus 4x4 1 -Silicone Border Foam 4x4 1 -Surgifoam 12-7mm (3/4 x 2 3/8) 3 -Wound Comment(s) Surgifoam x3 used today. ECF to resume fibracol at ECF . Treatment Response Procedure Procedure Tolerated Well Tolerated Well Pain Scale: 0-10 Numeric Is Patient Pain Free? Yes Yes WC - Visit Discharge Discharge Condition Stable Stable Ambulatory Status Wheelchair Wheelchair Transportation Private Auto Medication Reconcilliation completed & No provided to patient/care provider Clinical Summary of Care Provided Yes Facility Type [facility] Facility Orders Sent Yes Additional Wound Wound debrided: Sacral wound Wound Grade/Stage: Stage II Type of Debridement: Excisional debridement Anesthesia Used: 5% Lidocaine Gel Depth: in the subcutaneous layer Percentage of wound debrided: 100 Instrument Used: 5mm curette Tissue Removed: Devitalized tissue fibrin Severity: Fat Layer Exposed Amount of bleeding with debridement: Mild Bleeding Controlled with: Compression and gauze Patient tolerated procedure: Patient tolerated procedure well Assessment/Plan Assessment/Plan (1) Decubitus ulcer of sacral region, stage 2: CODE(S): L89.152 - Pressure ulcer of sacral region, stage 2 PLAN: Wash area with antibacterial soap and water apply fibracol to wound base Adaptic and then cover with [place] SAP foam dressing every day (2) Decubitus ulcer of right buttock, stage 4: CODE(S): L89.314 - Pressure ulcer of right buttock, stage 4 PLAN: For now packed with Vashe wash and cover with gauze and foam dressing twice daily Wound cultures rare and will not start on antibiotics but will recheck in 1 month again Follow-up with infectious disease next 2 weeks Follow-up with us in 1 week (3) Chronic anemia: CODE(S): D64.9 - Anemia, unspecified PLAN: Start ferrous sulfate 325 mg to twice a day with stool softeners B12 injections 1000 mcg q. weekly (4) Malnutrition: CODE(S): E46 - Unspecified protein-calorie malnutrition QUALIFIERS: Malnutrition type: protein-calorie malnutrition Protein-calorie malnutrition severity: moderate Qualified Code(s): E44.0 - Moderate protein-calorie malnutrition PLAN: Continue the Leeroy daily she needs 60 g of protein a day
--- NOTE | 2024-05-19 08:41 | WC ---
PHOTO 05/18/24
--- NOTE | 2024-05-19 08:46 | WC ---
PHOTO 05/18/24 SACRAL
[2024-05-25 11:02] VITALS: BP 153/82; PULSE 82; RESP 18; TEMP 36.4; BMI 16.9
--- NOTE | 2024-05-25 12:36 | PCM.WC.PN ---
History of Present Illness Date of Service: 05/25/24 Chief Complaint: Follow-up right buttocks wound History of Wound: 73-year-old paraplegic patient living at [facility] that developed pressure ulcers on her right buttocks that is pretty deep with showing now a lot of fat tissue and necrotic tissue.. Also has some hardened erythematous tissue around the edge of the wound and currently they have been using honey on the wound base. She also has a sacral wound that is has some depth also from pressure. She states she is currently taking doxycycline and they have been doing wet-to-dry in the perirectal area that is open also the perirectal area is in between her vagina and her rectum it is in a very precarious place. Patient was referred to the emergency room to be transferred to a plastic surgeon or regular surgery for debridement. Progress of Wound: Patient was referred to [facility] and had a debridement on April 14 and since then they have been doing wet-to-dry with a Vashe wash. At the senior living they have been doing them twice a day and covering with a foam dressing. The wound itself looks wonderful its beefy red and it is filling and she does have a lot of depth of about 4 to 6 cm's in depth. We will continue using the wet to dry soaked in Vashe wash. She is supposed to follow-up with infectious disease not surgery surgery in a couple of weeks. Patient also has a sacral wound that is healing nicely and is much smaller with using Fibracol. Patient is feeling better though she is showing signs of anemia but it is better than what it was when she first was at the hospital at or below 8 she is up to 9.8 on her hemoglobin since April. Her repeat prealbumin was 15 which is really low patient should be at least at 20 so or increasing the amount of how often she takes the Leeroy I suggested she start eating more protein like eggs boiled eggs scrambled eggs but she states they sent her cold food. I know why they cannot warm it but she is going to talk to them about that. Wound cultures came back rare. Patient feels well but she has no feeling from her waist down so we will continue to monitor her. Will continue culturing her monthly, she is currently on a waffle foam mattress we will try to get her on a low air mattress and she does have a Gelfoam pad for her wheelchair she lays down most of the day and i we have canceled PT for now and she is to stay in bed and roll off that 1 side continuously Patient is to restart her Leeroy's and start drinking more protein. The right buttocks wound is smaller but still has a lot of depth organ to try a wound VAC on her though she does not have much peripheral skin near the anus and vagina. We will start it at 150 mmHg. Until then she is to continue the twice a day washes with Vashi wash and then packing wet to dry. She is to continue using the Fibracol to the sacral area it is healing well Subjective Subjective Patient is pleased with outcomes and was willing to try and will talk to them about getting hot meals again. Objective Data Objective Data As stated above we will try a wound VAC to the right buttocks for her depth is improving but slowly to improve the depth for a while and then maybe finish her off with the wet to dry eyes. Also her sacral area is healing well with using Fibracol. Patient is very competent and continues to be compliant with staying off her buttocks. Vital Signs: Vital Signs Temp Pulse Resp BP 97.5 F L 82 18 153/82 H 05/25/24 11:02 05/25/24 11:02 05/25/24 11:02 05/25/24 11:02 Weight: 89 lb 6.4 oz Body Mass Index (BMI) 16.9 Lab / Micro Data Attestation: I reviewed the patient's lab results. Lab results narrative: Malnutrition and anemia Micro: Microbiology 05/11/24 10:15 Wound - Buttock Gram Stain - Final 05/11/24 10:15 Wound - Buttock Wound Culture - Final Enterobacter cloacae complex Staphylococcus epidermidis Corynebacterium minutissimum 05/11/24 10:15 Wound - Buttock Anaerobic Culture - Final Cutibacterium acnes Physical Exam Const oriented x3 General Appearance: cooperative Orientation / Consciousness: oriented to person, oriented to place and oriented to time Exam Limitations: no limitations Nutritional Appearance: cachectic, underweight and thin HEENT normocephalic Head and Scalp: normal to inspection External Ear: external ears normal Eyes PERRL General Eye: normal appearance of both eyes Neck full ROM General: normal visual inspection Resp normal respiratory effort Effort and Inspection: able to speak in complete sentences Auscultation: clear to auscultation bilaterally Cardio regular rate and regular rhythm Palpation: normal PMI Rate: regular rate Rhythm: regular rhythm GI Rectal Exam: visual inspection abnormal, fistula and other Other Details: Open wound left buttocks and perirectal may be fistula going on. Back/Spine Back/Spine Narrative: Paralysis from waist down Cervical Spine: cervical ROM normal Pelvis: buttocks abnormal right and other soft tissue findings Wound on her coccyx area Skin no rashes or lesions noted Skin Narrative: Open wounds on left buttocks with positive depth and infection possible sepsis sacral area open area nonhealing and perirectal area possibly a fistula. Wounds: wounds noted Wound Narrative: Open wound on coccyx stage II Right buttocks wound stage IV Neuro oriented x3 Psych Appearance: grossly normal Attitude: calm Activity / Motor Behavior: appropriate eye contact Speech: normal speech Mood & Affect: euthymic mood Thought Process: normal thought process Thought Content: normal thought content Attention / Concentration: attention grossly intact Memory / Cognition: memory grossly intact Insight: insight good Judgement: judgement good Debridement Note Debridement Note Wound debrided: Right buttocks decubitus ulcer Laterality: Right Wound Grade/Stage: Stage IV Type of Debridement: Excisional debridement Anesthesia Used: 5% Lidocaine Gel Depth: in the subcutaneous layer and to muscle Percentage of wound debrided: 100 Instrument Used: 7mm curette Tissue Removed: Fibrin Severity: Fat Layer Exposed (To the muscles) Amount of bleeding with debridement: Moderate Bleeding Controlled with: Compression and gauze Patient tolerated procedure: Patient tolerated procedure well Post-Debridement Measurements and Additional Note: Post-Debridement Measurements/Treatment - Nurse 1 - General Ulcer Assessment Start: 05/11/24 09:43 Freq: Status: Active Protocol: JOSEPHINE Activity Type Activity Date Activity User E-sign Co-sign Detail Recorded Client Recorded Date Recorded By Document 05/11/24 09:43 MT [id number] 05/11/24 09:59 MT Document 05/18/24 08:39 KW [id number] 05/18/24 08:44 KW Document 05/25/24 11:02 RB [id number] 05/25/24 11:08 RB 05/11/24 05/18/24 05/25/24 09:43 08:39 11:02 - Today's Visit Information Type of service Follow-up Visit Follow-up Visit Follow-up Visit (Physician/MANAGER APPOINTMENT (Physician/MANAGER APPOINTMENT (Physician/MANAGER APPOINTMENT ) ) ) Arrival Mode Wheelchair Wheelchair Wheelchair Transfer Assistance Other None Transfer Assist (Other) x2 Accompanied by self Patient Identification Verified (Name & Yes Yes Yes ) Patient Requires Transmission-Based No No Precautions Safety Precautions Fall Prevention Height and Weight Body Mass Index (BMI) 16.9 16.9 16.9 BMI Classification Underweight Underweight Underweight Vital Signs Temperature (97.8 F-99.1 F) 98 F 97.7 F L 97.5 F L Temperature Source Temporal Temporal Temporal Pulse Rate (60-100) 98 91 82 Pulse Location Monitor Monitor Monitor Respiratory Rate (12-18) 18 18 18 Respiratory rate source Monitor Observation Observation Blood Pressure (90/60-120/80) 108/70 136/62 H 153/82 H Blood Pressure Mean (mm Hg) 82 86 105 Source Monitor Monitor Monitor Position Sitting Semi-Fowlers Blood Pressure Location Left Arm Left Arm History Since Last Visit- (Skip if this is Patient's initial visit) Have you changed medications since your No No last visit? Any new allergies or adverse reactions No No Had a fall/change in ADL's that may No No increase risk of falls Signs or symptoms of abuse and/or No No neglect since last visit Have you been in the hospital since your No No last visit? Has dressing in place as prescribed Yes Yes Yes Has compression in place as prescribed Yes N/A N/A Has offloadiing in place as prescribed Yes Yes Yes Experienced any changes in pain level or Yes No No management Left Footwear Regular Shoe Right Footwear Regular Shoe Pain Scale: 0-10 Numeric Is Patient Pain Free? Yes Yes No FROM WAIST DOWN TO FEET -Description Aching -Intensity 6 -Duration (hours) Acute -Pain Behavior Irritability -Pain Aggravating Factors Changing Position -Alleviating Factors/Interventions Medication -Effectiveness of Alleviating Factor/ Minimally Intervention effective WC - Nurse 1 - General Ulcer Measurement Start: 05/11/24 09:43 Freq: Status: Active Protocol: Activity Type Activity Date Activity User E-sign Co-sign Detail Recorded Client Recorded Date Recorded By Document 05/11/24 09:43 MT [id number] 05/11/24 09:59 MT Document 05/18/24 08:39 KW [id number] 05/18/24 08:44 KW Document 05/25/24 11:02 RB [id number] 05/25/24 11:08 RB 05/11/24 05/18/24 05/25/24 09:43 08:39 11:02 Wound Center Nurse 1 #10 left hallux -Current Size (cm) - Length 0.1 -Current Size (cm) - Width 0.1 -Current Size (cm) - Depth 0.1 -Total Square Cm 0.01 -Texture (Leyla-wound Skin Appearance) Assessed -Moisture (Leyla-wound Skin Appearance) Assessed -Color (Leyla-wound Skin Appearance) Assessed -Temperature (Leyla-wound Skin No Abnormality Appearance) (Pt Warm) -Tenderness on Palpation (Leyla-wound No Skin Appearance) -Ulcer Cleansing Rinsed/ Irrigated with Saline -Anesthetic Used 5% Lidocaine Gel #14 Right Buttock -Combined with other wound No -Current Size (cm) - Length 8.5 6 6.4 -Current Size (cm) - Width 9.4 5.2 4 -Current Size (cm) - Depth 3.1 4 -Total Square Cm 79.90 31.2 25.6 -Date of Last Picture (Recall this 05/11/24 field) -Photo Taken Yes Yes -Tunneling Yes No -Tunneling Position (O'clock) 9 -Tunneling Distance (cm) 4.8 -Undermining/Tunneling Yes -Undermining/Tunneling Starts (O'clock 11 ) -Undermining/Tunneling Ends (O'clock) 1 -Maximum Distance (cm) 4.5 -Circular Undermining No -Classification - Thickness Full Thickness without Exposed Support Structure -Exudate Amt None Present Medium Large -Exudate Type Serosanguineous Serosanguineous -Wound Margin Flat & Intact Distinct, Thickened & Outline Rolled Under Attached -Granulation Amt Large (67-100%) Large (67-100%) Medium (34-66%) -Granulation Quality [place],Red Red [place] -Slough/Fibrin No Yes -Necrosis Amt None Present (0 Medium (34-66%) %) -Necrotic Tissue Type Adherent Slough -Structure Exposed N/A N/A -Texture (Leyla-wound Skin Appearance) Assessed Scarring Assessed, Scarring -Moisture (Leyla-wound Skin Appearance) Assessed Maceration Assessed -Color (Leyla-wound Skin Appearance) Assessed No Abnormality Assessed -Temperature (Leyla-wound Skin No Abnormality No Abnormality No Abnormality Appearance) (Pt Warm) (Pt Warm) (Pt Warm) -Tenderness on Palpation (Leyla-wound No No Skin Appearance) -Ulcer Cleansing Rinsed/ Soap and Water Wound Cleanser Irrigated with Saline -Foul Odor after Cleansing No -Anesthetic Used 4% Lidocaine 5% Lidocaine Solution Gel #11- sacral -Combined with other wound No -Current Size (cm) - Length 2 1.5 -Current Size (cm) - Width 1.5 1.4 -Current Size (cm) - Depth 0.2 0.1 -Total Square Cm 3.0 2.10 -Photo Taken Yes -Tunneling No -Undermining/Tunneling No -Circular Undermining No -Exudate Amt Medium Large -Exudate Type Serosanguineous -Wound Margin Distinct, Distinct, Outline Outline Attached Attached -Granulation Amt None Present (0 Large (67-100%) %) -Granulation Quality [place] -Slough/Fibrin Yes -Necrosis Amt Medium (34-66%) Medium (34-66%) -Necrotic Tissue Type Adherent Slough Adherent Slough -Structure Exposed N/A N/A -Texture (Leyla-wound Skin Appearance) Scarring Assessed, Scarring -Moisture (Leyla-wound Skin Appearance) No Abnormality Assessed -Color (Leyla-wound Skin Appearance) No Abnormality Assessed -Temperature (Leyla-wound Skin No Abnormality No Abnormality Appearance) (Pt Warm) (Pt Warm) -Tenderness on Palpation (Leyla-wound No No Skin Appearance) -Ulcer Cleansing Soap and Water Wound Cleanser -Foul Odor after Cleansing No No -Anesthetic Used 5% Lidocaine Gel Lower Limb Edema Present NA WC - Nurse 2 - General Ulcer CM Notes Start: 05/11/24 09:43 Freq: Status: Active Protocol: Activity Type Activity Date Activity User E-sign Co-sign Detail Recorded Client Recorded Date Recorded By Document 05/11/24 10:07 [facility] [id number] 05/11/24 10:26 BMF Edit Result 05/11/24 10:07 BMF (1) [id number] 05/11/24 11:55 [facility] Document 05/11/24 10:34 [id number] 05/11/24 10:34 Document 05/18/24 08:57 BMF [id number] 05/18/24 09:13 BM Document 05/25/24 11:16 BM [id number] 05/25/24 11:29 BM (1) #14 Right Buttock - Bleeding Controlled with Pressure,SURGIFOAM => Pressure #11- sacral - Bleeding Controlled with Pressure => Pressure,SURGIFOAM 05/11/24 05/11/24 05/18/24 10:07 10:34 08:57 Wound Center Nurse 2 #10 left hallux -Correct Patient No -Correct Side, Site, Position No -Correct Procedure No -Procedure Performed No -Post Debridement (cm) - Length 0 -Post Debridement (cm) - Width 0 -Post Debridement (cm) - Depth 0 -Total Square (Post) (cm) 0 -Area of Debridement (cm) - Length 0 -Area of Debridement (cm) - Width 0 -Total Square (Area) (cm) 0 -Wound/Ulcer Outcome Healed- Epithelialized #14 Right Buttock -Time 10:08 08:59 -Correct Patient Yes Yes -Correct Side, Site, Position Yes Yes -Correct Procedure Yes Yes -Procedure Performed Yes Yes -Type of Procedure Debridement Debridement -Clinical Debridement Muscle / Fascia Muscle / Fascia -Tissue Removed Muscle,Fascia Muscle,Fascia -Post Debridement (cm) - Length 7.5 5 -Post Debridement (cm) - Width 5.5 6.5 -Post Debridement (cm) - Depth 5.5 4.8 -Total Square (Post) (cm) 41.25 32.5 -Area of Debridement (cm) - Length 7.5 5 -Area of Debridement (cm) - Width 5.5 6.5 -Total Square (Area) (cm) 41.25 32.5 -Tunneling No No -Undermining/Tunneling No No -Circular Undermining No No -Wound/Ulcer Outcome Not Healed Not Healed -Ulcer Cleansing Rinsed/ Rinsed/ Irrigated with Irrigated with Saline Saline -Foul Odor after Cleansing No No -Bioengineered Tissue No No -Bleeding Controlled with Pressure Pressure -Treatment Response Procedure Procedure Tolerated Well Tolerated Well -Debridement - Muscle / Fascia, 1st Yes Yes 20sq cm -Debridement, Muscle/Fascia, ea addt'l 1 1 20sq cm or part thereof #11- sacral -Time 10:15 09:02 -Correct Patient Yes Yes -Correct Side, Site, Position Yes Yes -Correct Procedure Yes Yes -Procedure Performed Yes Yes -Type of Procedure Debridement Debridement -Clinical Debridement Subcutaneous Subcutaneous -Tissue Removed Subcutaneous Subcutaneous -Post Debridement (cm) - Length 2 1.7 -Post Debridement (cm) - Width 1.9 1.3 -Post Debridement (cm) - Depth 0.2 0.1 -Total Square (Post) (cm) 3.8 2.21 -Area of Debridement (cm) - Length 2 1.7 -Area of Debridement (cm) - Width 1.9 1.3 -Total Square (Area) (cm) 3.8 2.21 -Tunneling No No -Undermining/Tunneling No No -Circular Undermining No No -Wound/Ulcer Outcome Not Healed Not Healed -Ulcer Cleansing Rinsed/ Rinsed/ Irrigated with Irrigated with Saline Saline -Foul Odor after Cleansing No No -Bioengineered Tissue No -Bleeding Controlled with Pressure, Pressure SURGIFOAM -Treatment Response Procedure Procedure Tolerated Well Tolerated Well -Debridement - Subq, 1st 20sq cm Yes Yes Pain Scale: 0-10 Numeric Is Patient Pain Free? Yes Yes Yes 05/25/24 11:16 Wound Center Nurse 2 #10 left hallux -Correct Patient -Correct Side, Site, Position -Correct Procedure -Procedure Performed -Post Debridement (cm) - Length -Post Debridement (cm) - Width -Post Debridement (cm) - Depth -Total Square (Post) (cm) -Area of Debridement (cm) - Length -Area of Debridement (cm) - Width -Total Square (Area) (cm) -Wound/Ulcer Outcome #14 Right Buttock -Time 11:16 -Correct Patient Yes -Correct Side, Site, Position Yes -Correct Procedure Yes -Procedure Performed Yes -Type of Procedure Debridement -Clinical Debridement Muscle / Fascia -Tissue Removed Muscle,Fascia -Post Debridement (cm) - Length 5 -Post Debridement (cm) - Width 5.5 -Post Debridement (cm) - Depth 4.4 -Total Square (Post) (cm) 27.5 -Area of Debridement (cm) - Length 5 -Area of Debridement (cm) - Width 5.5 -Total Square (Area) (cm) 27.5 -Tunneling No -Undermining/Tunneling No -Circular Undermining No -Wound/Ulcer Outcome Not Healed -Ulcer Cleansing Rinsed/ Irrigated with Saline -Foul Odor after Cleansing No -Bioengineered Tissue No -Bleeding Controlled with Pressure -Treatment Response Procedure Tolerated Well -Debridement - Muscle / Fascia, 1st Yes 20sq cm -Debridement, Muscle/Fascia, ea addt'l 1 20sq cm or part thereof #11- sacral -Time 11:19 -Correct Patient Yes -Correct Side, Site, Position Yes -Correct Procedure Yes -Procedure Performed Yes -Type of Procedure Debridement -Clinical Debridement Subcutaneous -Tissue Removed Subcutaneous -Post Debridement (cm) - Length 1.4 -Post Debridement (cm) - Width 1 -Post Debridement (cm) - Depth 0.1 -Total Square (Post) (cm) 1.4 -Area of Debridement (cm) - Length 1.4 -Area of Debridement (cm) - Width 1 -Total Square (Area) (cm) 1.4 -Tunneling No -Undermining/Tunneling No -Circular Undermining No -Wound/Ulcer Outcome Not Healed -Ulcer Cleansing Rinsed/ Irrigated with Saline -Foul Odor after Cleansing No -Bioengineered Tissue No -Bleeding Controlled with Pressure -Treatment Response Procedure Tolerated Well -Debridement - Subq, 1st 20sq cm Yes Pain Scale: 0-10 Numeric Is Patient Pain Free? Yes WC - Nurse 3 - General Ulcer D/C NN Start: 05/11/24 09:43 Freq: Status: Active Protocol: Activity Type Activity Date Activity User E-sign Co-sign Detail Recorded Client Recorded Date Recorded By Document 05/11/24 11:04 DL [id number] 05/11/24 11:08 DL Document 05/18/24 09:33 RB [id number] 05/18/24 09:34 RB Edit Result 05/18/24 09:33 RB (1) [id number] 05/18/24 09:35 RB Edit Result 05/18/24 09:33 RB (2) [id number] 05/18/24 09:35 RB Edit Result 05/18/24 09:33 RB (3) [id number] 05/18/24 09:46 RB Document 05/25/24 11:51 DL [id number] 05/25/24 11:53 DL (1) #14 Right Buttock - Silicone Border Foam 6x6 => 1 #11- sacral - Silicone Border Foam 4x4 => 1 (2) #11- sacral - Fibracol Plus 4x4 => 1 (3) #11- sacral - Primary Dressing Applied Fibracol Plus 4x4, => Fibracol Plus 4x4, Silicone Border => NonAdherent Foam 4x4 => Contact Layer, => Silicone Border => Foam 4x4 05/11/24 05/18/24 05/25/24 11:04 09:33 11:51 Wound Care Center Nurse 3 #14 Right Buttock -Ulcer Cleansing Soap and Water Rinsed/ Irrigated with Saline -Foul Odor after Cleansing No No -Primary Dressing Applied Silicone Border Foam 6x6 -Other Dressing Dakins dakins DAKINS moistened gauze -Primary Dressing Covered/Secured with Dry Gauze, Dry Gauze, Secured with Secured with Tape Tape -Other Covering ABD -Silicone Border Foam 6x6 1 #11- sacral -Ulcer Cleansing Rinsed/ Rinsed/ Irrigated with Irrigated with Saline Saline -Foul Odor after Cleansing No No -Primary Dressing Applied Surgifoam -Primary Dressing Applied Fibracol Plus Fibracol Plus 4x4,NonAdherent 4x4,NonAdherent Contact Layer, Contact Layer, Silicone Border Silicone Border Foam 4x4 Foam 4x4 -Other Dressing Surgifoam/ABD -Primary Dressing Covered/Secured with Secured with Tape -Fibracol Plus 4x4 1 1 -Silicone Border Foam 4x4 1 1 -Surgifoam 12-7mm (3/4 x 2 3/8) 3 -Wound Comment(s) Surgifoam x3 used today. ECF to resume fibracol at ECF . Treatment Response Procedure Procedure Procedure Tolerated Well Tolerated Well Tolerated Well Pain Scale: 0-10 Numeric Is Patient Pain Free? Yes Yes Yes WC - Visit Discharge Discharge Condition Stable Stable Stable Ambulatory Status Wheelchair Wheelchair Wheelchair Transportation Private Auto ECF trans Medication Reconcilliation completed & No provided to patient/care provider Clinical Summary of Care Provided Yes Facility Type [facility] Care Tracing Lathe Set Up Operator Care Facility Facility Orders Sent Yes Yes Additional Wound Wound debrided: Sacral wound Wound Grade/Stage: Stage II Type of Debridement: Excisional debridement Anesthesia Used: 5% Lidocaine Gel Depth: in the subcutaneous layer Percentage of wound debrided: 100 Instrument Used: 5mm curette Tissue Removed: Devitalized tissue fibrin Severity: Fat Layer Exposed Amount of bleeding with debridement: Mild Bleeding Controlled with: Compression and gauze Patient tolerated procedure: Patient tolerated procedure well Assessment/Plan Assessment/Plan (1) Decubitus ulcer of sacral region, stage 2: CODE(S): L89.152 - Pressure ulcer of sacral region, stage 2 PLAN: Wash area with antibacterial soap and water apply fibracol to wound base Adaptic and then cover with [place] SAP foam dressing every day (2) Decubitus ulcer of right buttock, stage 4: CODE(S): L89.314 - Pressure ulcer of right buttock, stage 4 PLAN: For now packed with Vashe wash and cover with gauze and foam dressing twice daily Wound cultures rare and will not start on antibiotics but will recheck in 1 month again Follow-up with infectious disease next 2 weeks Ordered a wound VAC to be applied to right buttocks at 150 mmHg with black foam in the wound base. Follow-up with us in 1 week (3) Chronic anemia: CODE(S): D64.9 - Anemia, unspecified PLAN: Start ferrous sulfate 325 mg to twice a day with stool softeners B12 injections 1000 mcg q. weekly (4) Malnutrition: CODE(S): E46 - Unspecified protein-calorie malnutrition QUALIFIERS: Malnutrition type: protein-calorie malnutrition Protein-calorie malnutrition severity: moderate Qualified Code(s): E44.0 - Moderate protein-calorie malnutrition PLAN: Continue the Leeroy daily she needs 60 g of protein a day
[2024-06-01 10:22] VITALS: BP 104/72; PULSE 96; RESP 16; BMI 16.9
--- NOTE | 2024-06-01 13:57 | WC ---
PHOTO 06/01/24 LEFT GREAT TOE
--- NOTE | 2024-06-01 13:58 | WC ---
PHOTO 06/01/24 RIGHT BUTTOCKS
--- NOTE | 2024-06-01 13:59 | WC ---
PHOTO 06/01/24 SACRAL
== END 2024-06-03 23:59 | disposition home or self-care (01) ==
LOC: WC 10:30
PROVIDERS: PCP Family Medicine; Referring Provider Family Medicine; Visit Provider Nurse Practitioner
DX: L89.152 Pressure ulcer of sacral region, stage 2 (principal); L89.314 Pressure ulcer of right buttock, stage 4; L97.522 Non-pressure chronic ulcer of other part of left foot with fat layer exposed; D64.9 Anemia, unspecified; E44.0 Moderate protein-calorie malnutrition; Z68.1 Body mass index [BMI] 19.9 or less, adult
CPT/HCPCS: 11042; 11043; 11046; 87070; 87075; 87077; 87186; 87205; 99213; G0463

== ENCOUNTER 2024-06-29 08:30 | Outpatient (RCR) | payer MEDICARE, OTHER, SELFPAY ==
[2024-06-04 01:56] VITALS: BP 104/72; PULSE 96; RESP 16; TEMP 36.4; BMI 16.9
[2024-06-08 10:43] VITALS: BP 100/58; PULSE 79; RESP 18; TEMP 36.6; BMI 16.9
--- NOTE | 2024-06-08 11:52 | PN.PCM_ITS ---
History of Present Illness Date of Service: 06/08/24 Chief Complaint: Follow-up right buttocks wound History of Wound: 73-year-old paraplegic patient living at [facility] that developed pressure ulcers on her right buttocks that is pretty deep with showing now a lot of fat tissue and necrotic tissue.. Also has some hardened erythematous tissue around the edge of the wound and currently they have been using honey on the wound base. She also has a sacral wound that is has some depth also from pressure. She states she is currently taking doxycycline and they have been doing wet-to-dry in the perirectal area that is open also the perirectal area is in between her vagina and her rectum it is in a very precarious place. Patient was referred to the emergency room to be transferred to a plastic surgeon or regular surgery for debridement. Progress of Wound: Started to see improvement with the wound VAC it is more shallow still has tunneling it 12:00 that is still about the same but slightly shorter. Bleeds easily. No odor noted patient is tolerating treatment well. The sacral wound is healing much smaller and flatter. And the left great toe is smaller in measurements also bleeds easily. Subjective Subjective Patient feels good and she has been eating well looks healthier doing good with her treatments. Patient continues to stay on bed rest and is very compliant with all requests. Objective Data Objective Data No sign of infection wounds look good healthy beefy all measurements are better and improving we will continue with the wound VAC at 150 mmHg and the fibber call to the left great toe and to the sacral area. Vital Signs: Vital Signs Temp Pulse Resp BP 97.8 F 79 18 100/58 L 06/08/24 10:43 06/08/24 10:43 06/08/24 10:43 06/08/24 10:43 Weight: 89 lb 6.4 oz Body Mass Index (BMI) 16.9 Lab / Micro Data Attestation: I reviewed the patient's lab results. Physical Exam Const oriented x3 General Appearance: cooperative Orientation / Consciousness: oriented to person, oriented to place and oriented to time Exam Limitations: no limitations Nutritional Appearance: cachectic, underweight and thin HEENT normocephalic Head and Scalp: normal to inspection External Ear: external ears normal Eyes PERRL General Eye: normal appearance of both eyes Neck full ROM General: normal visual inspection Resp normal respiratory effort Effort and Inspection: able to speak in complete sentences Auscultation: clear to auscultation bilaterally Cardio regular rate and regular rhythm Palpation: normal PMI Rate: regular rate Rhythm: regular rhythm GI Rectal Exam: visual inspection abnormal, fistula and other Other Details: Open wound left buttocks and perirectal may be fistula going on. Back/Spine Back/Spine Narrative: Paralysis from waist down Cervical Spine: cervical ROM normal Pelvis: buttocks abnormal right and other soft tissue findings Wound on her coccyx area Skin no rashes or lesions noted Skin Narrative: Open wounds on left buttocks with positive depth and infection possible sepsis sacral area open area nonhealing and perirectal area possibly a fistula. Wounds: wounds noted Wound Narrative: Open wound on coccyx stage II Right buttocks wound stage IV Neuro oriented x3 Psych Appearance: grossly normal Attitude: calm Activity / Motor Behavior: appropriate eye contact Speech: normal speech Mood & Affect: euthymic mood Thought Process: normal thought process Thought Content: normal thought content Attention / Concentration: attention grossly intact Memory / Cognition: memory grossly intact Insight: insight good Judgement: judgement good Debridement Note Debridement Note Wound debrided: Right buttocks decubitus ulcer Laterality: Right Wound Grade/Stage: Stage IV Type of Debridement: Excisional debridement Anesthesia Used: 5% Lidocaine Gel Depth: in the subcutaneous layer and to muscle Percentage of wound debrided: 100 Instrument Used: 7mm curette Tissue Removed: Fibrin Severity: Fat Layer Exposed (To the muscles) Amount of bleeding with debridement: Moderate Bleeding Controlled with: Compression and gauze Patient tolerated procedure: Patient tolerated procedure well Post-Debridement Measurements and Additional Note: Post-Debridement Measurements/Treatment - Nurse 1 - General Ulcer Assessment Start: 06/08/24 10:43 Freq: Status: Active Protocol: [email or web address] Activity Type Activity Date Activity User E-sign Co-sign Detail Recorded Client Recorded Date Recorded By Document 06/08/24 10:43 DL [id number] 06/08/24 11:01 DL 06/08/24 10:43 - Today's Visit Information Type of service Follow-up Visit (Physician/COMPOSITE WORKER ) Arrival Mode Wheelchair Transfer Assistance Manual Transfer Assist (Other) x1 Patient Identification Verified (Name & Yes ) Patient Requires Transmission-Based No Precautions Height and Weight Body Mass Index (BMI) 16.9 BMI Classification Underweight Vital Signs Temperature (97.8 F-99.1 F) 97.8 F Temperature Source Temporal Pulse Rate (60-100) 79 Pulse Location Monitor Respiratory Rate (12-18) 18 Respiratory rate source Observation Blood Pressure (90/60-120/80) 100/58 L Blood Pressure Mean (mm Hg) 72 Source Monitor History Since Last Visit- (Skip if this is Patient's initial visit) Have you changed medications since your No last visit? Any new allergies or adverse reactions No Had a fall/change in ADL's that may No increase risk of falls Signs or symptoms of abuse and/or No neglect since last visit Have you been in the hospital since your No last visit? Has dressing in place as prescribed Yes Has compression in place as prescribed N/A Has offloadiing in place as prescribed Yes Experienced any changes in pain level or No management Pain Scale: 0-10 Numeric Is Patient Pain Free? Yes WC - Nurse 1 - General Ulcer Measurement Start: 06/08/24 10:43 Freq: Status: Active Protocol: Activity Type Activity Date Activity User E-sign Co-sign Detail Recorded Client Recorded Date Recorded By Document 06/08/24 10:43 DL [id number] 06/08/24 11:01 DL Edit Result 06/08/24 10:43 DL (1) [id number] 06/08/24 11:04 DL (1) #14 Right Buttock - Tunneling Position (O'clock) => 12 - Tunneling Distance (cm) => 5 06/08/24 10:43 Wound Center Nurse 1 #15- L HALLUX -Current Size (cm) - Length 0.3 -Current Size (cm) - Width 0.3 -Current Size (cm) - Depth 0.1 -Total Square Cm 0.09 -Exudate Amt Small -Wound Margin Distinct, Outline Attached -Granulation Amt Small (1-33%) -Granulation Quality [place] -Necrosis Amt None Present (0 %) -Necrotic Tissue Type Adherent Slough -Structure Exposed N/A -Texture (Leyla-wound Skin Appearance) Scarring -Moisture (Leyla-wound Skin Appearance) No Abnormality -Color (Leyla-wound Skin Appearance) No Abnormality -Temperature (Leyla-wound Skin No Abnormality Appearance) (Pt Warm) -Tenderness on Palpation (Leyla-wound No Skin Appearance) -Ulcer Cleansing Soap and Water -Foul Odor after Cleansing No -Anesthetic Used 5% Lidocaine Gel #14 Right Buttock -Current Size (cm) - Length 6 -Current Size (cm) - Width 4 -Current Size (cm) - Depth 0.3 -Total Square Cm 24 -Tunneling Position (O'clock) 12 -Tunneling Distance (cm) 5 -Exudate Amt Medium -Exudate Type Serosanguineous -Wound Margin Distinct, Outline Attached -Granulation Amt Large (67-100%) -Granulation Quality Red -Necrosis Amt Small (1-33%) -Necrotic Tissue Type Adherent Slough -Structure Exposed N/A -Texture (Leyla-wound Skin Appearance) Scarring -Moisture (Leyla-wound Skin Appearance) No Abnormality -Color (Leyla-wound Skin Appearance) No Abnormality -Temperature (Leyla-wound Skin No Abnormality Appearance) (Pt Warm) -Ulcer Cleansing Soap and Water -Foul Odor after Cleansing No #11- sacral -Current Size (cm) - Length 0.6 -Current Size (cm) - Width 0.3 -Current Size (cm) - Depth 0.1 -Total Square Cm 0.18 -Exudate Amt None Present -Granulation Amt None Present (0 %) -Necrosis Amt Small (1-33%) -Necrotic Tissue Type Eschar -Structure Exposed N/A -Texture (Leyla-wound Skin Appearance) Scarring -Moisture (Leyla-wound Skin Appearance) No Abnormality -Color (Leyla-wound Skin Appearance) No Abnormality -Temperature (Leyla-wound Skin No Abnormality Appearance) (Pt Warm) -Tenderness on Palpation (Leyla-wound No Skin Appearance) -Ulcer Cleansing Soap and Water -Foul Odor after Cleansing No WC - Nurse 2 - General Ulcer CM Notes Start: 06/08/24 10:43 Freq: Status: Active Protocol: Activity Type Activity Date Activity User E-sign Co-sign Detail Recorded Client Recorded Date Recorded By Document 06/08/24 11:19 [facility] [id number] 06/08/24 11:33 [facility] 06/08/24 11:19 Wound Center Nurse 2 #15- L HUA -Time 11:24 -Correct Patient Yes -Correct Side, Site, Position Yes -Correct Procedure Yes -Procedure Performed Yes -Type of Procedure Debridement -Clinical Debridement Subcutaneous -Tissue Removed Subcutaneous -Post Debridement (cm) - Length 0.5 -Post Debridement (cm) - Width 0.5 -Post Debridement (cm) - Depth 0.1 -Total Square (Post) (cm) 0.25 -Area of Debridement (cm) - Length 0.5 -Area of Debridement (cm) - Width 0.5 -Total Square (Area) (cm) 0.25 -Tunneling No -Undermining/Tunneling No -Circular Undermining No -Wound/Ulcer Outcome Not Healed -Ulcer Cleansing Rinsed/ Irrigated with Saline -Foul Odor after Cleansing No -Bioengineered Tissue No -Bleeding Controlled with Pressure -Treatment Response Procedure Tolerated Well -Debridement - Subq, 1st 20sq cm No #14 Right Buttock -Time 11:22 -Correct Patient Yes -Correct Side, Site, Position Yes -Correct Procedure Yes -Procedure Performed Yes -Type of Procedure Debridement -Clinical Debridement Muscle / Fascia -Tissue Removed Muscle,Fascia -Post Debridement (cm) - Length 7 -Post Debridement (cm) - Width 3 -Post Debridement (cm) - Depth 3.7 -Total Square (Post) (cm) 21 -Area of Debridement (cm) - Length 7 -Area of Debridement (cm) - Width 3 -Total Square (Area) (cm) 21 -Tunneling Yes -Tunneling Position (O'clock) 12 -Tunneling Distance (cm) 3.7 -Undermining/Tunneling No -Circular Undermining No -Wound/Ulcer Outcome Not Healed -Ulcer Cleansing Rinsed/ Irrigated with Saline -Foul Odor after Cleansing No -Bioengineered Tissue No -Bleeding Controlled with Pressure -Treatment Response Procedure Tolerated Well -Debridement - Muscle / Fascia, 1st Yes 20sq cm #11- sacral -Time 11:23 -Correct Patient Yes -Correct Side, Site, Position Yes -Correct Procedure Yes -Procedure Performed Yes -Type of Procedure Debridement -Clinical Debridement Subcutaneous -Tissue Removed Subcutaneous -Post Debridement (cm) - Length 0.7 -Post Debridement (cm) - Width 0.5 -Post Debridement (cm) - Depth 0.1 -Total Square (Post) (cm) 0.35 -Area of Debridement (cm) - Length 0.7 -Area of Debridement (cm) - Width 0.5 -Total Square (Area) (cm) 0.35 -Tunneling No -Undermining/Tunneling No -Circular Undermining No -Wound/Ulcer Outcome Not Healed -Ulcer Cleansing Rinsed/ Irrigated with Saline -Foul Odor after Cleansing No -Bioengineered Tissue No -Bleeding Controlled with Pressure -Treatment Response Procedure Tolerated Well -Debridement - Subq, 1st 20sq cm Yes Pain Scale: 0-10 Numeric Is Patient Pain Free? Yes - Nurse 3 - General Ulcer D/C NN Start: 06/08/24 10:43 Freq: Status: Active Protocol: Activity Type Activity Date Activity User E-sign Co-sign Detail Recorded Client Recorded Date Recorded By Document 06/08/24 11:37 [facility] [id number] 06/08/24 11:38 [facility] 06/08/24 11:37 Wound Care Center Nurse 3 #15- L HALLUX -Ulcer Cleansing Rinsed/ Irrigated with Saline -Foul Odor after Cleansing No -Primary Dressing Applied Fibracol Plus 4x4,Silicone Border Foam 4x4 -Other Dressing per rb rn -Fibracol Plus 4x4 1 -Silicone Border Foam 4x4 1 #14 Right Buttock -Ulcer Cleansing Soap and Water -Foul Odor after Cleansing No -Negative Pressure Wound Therapy Continue -Setting (mmHg) 150 -Negative Pressure is Continuous -NPWT Application Charge NPWT & Debridement (nc ) -Wound Comment(s) per rb rn #11- sacral -Ulcer Cleansing Rinsed/ Irrigated with Saline -Foul Odor after Cleansing No -Primary Dressing Applied Fibracol Plus 4x4,Silicone Border Foam 4x4 -Fibracol Plus 4x4 0 -Silicone Border Foam 4x4 0 Treatment Response Procedure Tolerated Well Pain Scale: 0-10 Numeric Is Patient Pain Free? Yes - Visit Discharge Discharge Condition Stable Ambulatory Status Wheelchair Transportation ecf transport Facility Type Detention [facility] Facility Additional Wound Wound debrided: Sacral wound Wound Grade/Stage: Stage II Type of Debridement: Excisional debridement Anesthesia Used: 5% Lidocaine Gel Depth: in the subcutaneous layer Percentage of wound debrided: 100 Instrument Used: 5mm curette Tissue Removed: fibrin Severity: Fat Layer Exposed Amount of bleeding with debridement: Mild Bleeding Controlled with: Compression and gauze Patient tolerated procedure: Patient tolerated procedure well Additional Wound Wound debrided: Left great toe Wound Grade/Stage: Decubitus ulcer stage II Type of Debridement: Excisional debridement Anesthesia Used: 5% Lidocaine Gel Depth: Down to and including healthy tissue Percentage of wound debrided: 100 Instrument Used: 5mm curette Tissue Removed: Fibrin Severity: Fat Layer Exposed Amount of bleeding with debridement: Mild Bleeding Controlled with: Compression and gauze Patient tolerated procedure: Patient tolerated procedure well Assessment/Plan Assessment/Plan (1) Decubitus ulcer of sacral region, stage 2: CODE(S): L89.152 - Pressure ulcer of sacral region, stage 2 PLAN: Wash area with antibacterial soap and water apply fibracol to wound base Adaptic and then cover with Hutchinson SAP foam dressing every day (2) Decubitus ulcer of right buttock, stage 4: CODE(S): L89.314 - Pressure ulcer of right buttock, stage 4 PLAN: For now packed with Vashe wash and cover with gauze and foam dressing twice daily Wound cultures rare and will not start on antibiotics but will recheck in 1 month again Follow-up with infectious disease next 2 weeks Ordered a wound VAC to be applied to right buttocks at 150 mmHg with black foam in the wound base. Follow-up with us in 1 week (3) Chronic anemia: CODE(S): D64.9 - Anemia, unspecified PLAN: Start ferrous sulfate 325 mg to twice a day with stool softeners B12 injections 1000 mcg q. weekly (4) Malnutrition: CODE(S): E46 - Unspecified protein-calorie malnutrition QUALIFIERS: Malnutrition type: protein-calorie malnutrition Protein-calorie malnutrition severity: moderate Qualified Code(s): E44.0 - Moderate protein-calorie malnutrition PLAN: Continue the Leeroy daily she needs 60 g of protein a day (5) Decubitus ulcer of toe, stage 2: CODE(S): L89.892 - Pressure ulcer of other site, stage 2 QUALIFIERS: Laterality: left Qualified Code(s): L89.892 - Pressure ulcer of other site, stage 2 PLAN: Wash left foot with antibacterial soap and water and apply Fibracol to wound base moistened with Adaptic and Hutch[place] SAP over top daily Follow-up in 1 week
[2024-06-15 15:12] VITALS: BP 146/69; PULSE 73; RESP 18; TEMP 36.8; BMI 16.9
--- NOTE | 2024-06-15 16:49 | PCM.WC.PN ---
History of Present Illness Date of Service: 06/15/24 Chief Complaint: Follow-up right buttocks wound History of Wound: 73-year-old paraplegic patient living at [facility] that developed pressure ulcers on her right buttocks that is pretty deep with showing now a lot of fat tissue and necrotic tissue.. Also has some hardened erythematous tissue around the edge of the wound and currently they have been using honey on the wound base. She also has a sacral wound that is has some depth also from pressure. She states she is currently taking doxycycline and they have been doing wet-to-dry in the perirectal area that is open also the perirectal area is in between her vagina and her rectum it is in a very precarious place. Patient was referred to the emergency room to be transferred to a plastic surgeon or regular surgery for debridement. Progress of Wound: Courtesy visit for Evelyn. Sacral ulcer is small with beefy pink ulcer bed. The right buttocks ulcer with the wound VAC and the tunneling at 12:00 is stable. The ulcer bed is a nice beefy pink color. She is tolerating the wound VAC well. She has a new skin tear just distal to the right buttock ulcer from the wound VAC drape being removed. She has new pressure wound cluster on her left ischial area. The left hallux ulcer is small, beefy pink and stable. She states she sleeps on an low air loss mattress and has a Roho cushion on her wheelchair. Objective Data Objective Data Vital Signs: Vital Signs Temp Pulse Resp BP 98.2 F 73 18 146/69 H 06/15/24 15:12 06/15/24 15:12 06/15/24 15:12 06/15/24 15:12 Weight: 89 lb 6.4 oz Body Mass Index (BMI) 16.9 Charges/Coding Procedures Integumentary 111xxx-113xx: [id number] Criselda musc/fascia 20 sq cm/< (Right buttocks ulcer) Multi Select Codes Integumentary Integumentary CPT Codes: 02972 Criselda subq tissue 20 sq cm/< (sacral ulcer, left great toe, right buttocks) Debridement Note Debridement Note Wound debrided: #14 Right buttocks decubitus ulcer Laterality: Right Wound Grade/Stage: Stage IV Type of Debridement: Excisional debridement Anesthesia Used: 5% Lidocaine Gel Depth: in the subcutaneous layer and to muscle Percentage of wound debrided: 100 Instrument Used: 7mm curette Tissue Removed: Non viable tissue and slough Severity: Fat Layer Exposed (To the muscles) Amount of bleeding with debridement: Mild Bleeding Controlled with: Compression and gauze Patient tolerated procedure: Patient tolerated procedure well Post-Debridement Measurements and Additional Note: Post-Debridement Measurements/Treatment MARY - Nurse 1 - General Ulcer Assessment Start: 06/08/24 10:43 Freq: Status: Active Protocol: JOSEPHINE Activity Type Activity Date Activity User E-sign Co-sign Detail Recorded Client Recorded Date Recorded By Document 06/08/24 10:43 DL [id number] 06/08/24 11:01 DL Document 06/15/24 15:12 DL [id number] 06/15/24 15:33 DL 06/08/24 06/15/24 10:43 15:12 WC - Today's Visit Information Type of service Follow-up Visit Follow-up Visit (Physician/[employer] (Physician/[employer]ER ) ) Arrival Mode Wheelchair Wheelchair Transfer Assistance Manual None Transfer Assist (Other) x1 Patient Identification Verified (Name & Yes Yes ) Patient Requires Transmission-Based No No Precautions Height and Weight Body Mass Index (BMI) 16.9 16.9 BMI Classification Underweight Underweight Vital Signs Temperature (97.8 F-99.1 F) 97.8 F 98.2 F Temperature Source Temporal Temporal Pulse Rate (60-100) 79 73 Pulse Location Monitor Monitor Respiratory Rate (12-18) 18 18 Respiratory rate source Observation Observation Blood Pressure (90/60-120/80) 100/58 L 146/69 H Blood Pressure Mean (mm Hg) 72 94 Source Monitor Monitor History Since Last Visit- (Skip if this is Patient's initial visit) Have you changed medications since your No No last visit? Any new allergies or adverse reactions No No Had a fall/change in ADL's that may No No increase risk of falls Signs or symptoms of abuse and/or No No neglect since last visit Have you been in the hospital since your No No last visit? Has dressing in place as prescribed Yes Yes Has compression in place as prescribed N/A N/A Has offloadiing in place as prescribed Yes Yes Experienced any changes in pain level or No No management Pain Scale: 0-10 Numeric Is Patient Pain Free? Yes Yes MARY - Nurse 1 - General Ulcer Measurement Start: 06/08/24 10:43 Freq: Status: Active Protocol: Activity Type Activity Date Activity User E-sign Co-sign Detail Recorded Client Recorded Date Recorded By Document 06/08/24 10:43 DL [id number] 06/08/24 11:01 DL Edit Result 06/08/24 10:43 DL (1) [id number] 06/08/24 11:04 DL Document 06/15/24 15:12 DL [id number] 06/15/24 15:33 DL (1) #14 Right Buttock - Tunneling Position (O'clock) => 12 - Tunneling Distance (cm) => 5 06/08/24 06/15/24 10:43 15:12 Wound Center Nurse 1 #16 L Buttocks -Current Size (cm) - Length 1.5 -Current Size (cm) - Width 0.6 -Current Size (cm) - Depth 0.1 -Total Square Cm 0.90 -Photo Taken Yes -Exudate Amt Small -Exudate Type Serosanguineous -Wound Margin Distinct, Outline Attached -Granulation Amt Small (1-33%) -Granulation Quality Pershing -Necrosis Amt None Present (0 %) -Necrotic Tissue Type Adherent Slough -Structure Exposed N/A -Texture (Leyla-wound Skin Appearance) Scarring -Moisture (Leyla-wound Skin Appearance) No Abnormality -Color (Leyla-wound Skin Appearance) No Abnormality -Temperature (Leyla-wound Skin No Abnormality Appearance) (Pt Warm) -Tenderness on Palpation (Leyla-wound No Skin Appearance) -Ulcer Cleansing Rinsed/ Irrigated with Saline -Foul Odor after Cleansing No #15- L HALLUX -Current Size (cm) - Length 0.3 0.7 -Current Size (cm) - Width 0.3 0.7 -Current Size (cm) - Depth 0.1 0.1 -Total Square Cm 0.09 0.49 -Exudate Amt Small Small -Exudate Type Serosanguineous -Wound Margin Distinct, Distinct, Outline Outline Attached Attached -Granulation Amt Small (1-33%) Large (67-100%) -Granulation Quality Pershing Pershing -Necrosis Amt None Present (0 None Present (0 %) %) -Necrotic Tissue Type Adherent Slough -Structure Exposed N/A N/A -Texture (Leyla-wound Skin Appearance) Scarring Scarring -Moisture (Leyla-wound Skin Appearance) No Abnormality No Abnormality -Color (Leyla-wound Skin Appearance) No Abnormality No Abnormality -Temperature (Leyla-wound Skin No Abnormality No Abnormality Appearance) (Pt Warm) (Pt Warm) -Tenderness on Palpation (Leyla-wound No No Skin Appearance) -Ulcer Cleansing Soap and Water Rinsed/ Irrigated with Saline -Foul Odor after Cleansing No No -Anesthetic Used 5% Lidocaine 5% Lidocaine Gel Gel #14 Right Buttock -Current Size (cm) - Length 6 5.4 -Current Size (cm) - Width 4 2.5 -Current Size (cm) - Depth 0.3 2.7 -Total Square Cm 24 13.50 -Tunneling Position (O'clock) 12 12 -Tunneling Distance (cm) 5 3 -Exudate Amt Medium Medium -Exudate Type Serosanguineous Serosanguineous -Wound Margin Distinct, Distinct, Outline Outline Attached Attached -Granulation Amt Large (67-100%) Large (67-100%) -Granulation Quality Red Red -Necrosis Amt Small (1-33%) None Present (0 %) -Necrotic Tissue Type Adherent Slough -Structure Exposed N/A N/A -Texture (Leyla-wound Skin Appearance) Scarring Scarring -Moisture (Leyla-wound Skin Appearance) No Abnormality No Abnormality -Color (Leyla-wound Skin Appearance) No Abnormality No Abnormality -Temperature (Leyla-wound Skin No Abnormality No Abnormality Appearance) (Pt Warm) (Pt Warm) -Tenderness on Palpation (Leyla-wound No Skin Appearance) -Ulcer Cleansing Soap and Water Soap and Water -Foul Odor after Cleansing No No #11- sacral -Current Size (cm) - Length 0.6 0.1 -Current Size (cm) - Width 0.3 0.1 -Current Size (cm) - Depth 0.1 0.1 -Total Square Cm 0.18 0.01 -Exudate Amt None Present None Present -Wound Margin Thickened -Granulation Amt None Present (0 None Present (0 %) %) -Necrosis Amt Small (1-33%) Small (1-33%) -Necrotic Tissue Type Eschar Eschar -Structure Exposed N/A N/A -Texture (Leyla-wound Skin Appearance) Scarring Scarring -Moisture (Leyla-wound Skin Appearance) No Abnormality No Abnormality -Color (Leyla-wound Skin Appearance) No Abnormality No Abnormality -Temperature (Leyla-wound Skin No Abnormality No Abnormality Appearance) (Pt Warm) (Pt Warm) -Tenderness on Palpation (Leyla-wound No No Skin Appearance) -Ulcer Cleansing Soap and Water Soap and Water -Foul Odor after Cleansing No No -Anesthetic Used 5% Lidocaine Gel WC - Nurse 2 - General Ulcer CM Notes Start: 06/08/24 10:43 Freq: Status: Active Protocol: Activity Type Activity Date Activity User E-sign Co-sign Detail Recorded Client Recorded Date Recorded By Document 06/08/24 11:19 BMF [id number] 06/08/24 11:33 BMF Edit Result 06/08/24 11:19 BMF (1) [id number] 06/15/24 14:50 BMF Document 06/15/24 15:49 GM [id number] 06/15/24 16:01 GM (1) #14 Right Buttock - Debridement, Muscle/Fascia, ea addt'l => 1 20sq cm or part thereof 06/08/24 06/15/24 11:19 15:49 Wound Center Nurse 2 #16 L Buttocks -Time 16:01 -Correct Patient Yes -Correct Side, Site, Position Yes -Correct Procedure Yes -Procedure Performed Yes -Type of Procedure Debridement -Clinical Debridement Subcutaneous -Tissue Removed Subcutaneous -Post Debridement (cm) - Length 1.7 -Post Debridement (cm) - Width 1.0 -Post Debridement (cm) - Depth 0.1 -Total Square (Post) (cm) 1.70 -Area of Debridement (cm) - Length 1.7 -Area of Debridement (cm) - Width 1.0 -Total Square (Area) (cm) 1.70 -Tunneling No -Undermining/Tunneling No -Circular Undermining No -Wound/Ulcer Outcome Not Healed -Ulcer Cleansing Rinsed/ Irrigated with Saline -Foul Odor after Cleansing No -Bioengineered Tissue No -Bleeding Controlled with Pressure -Treatment Response Procedure Tolerated Well -Debridement - Subq, 1st 20sq cm No #15- L HALLUX -Time 11:24 15:49 -Correct Patient Yes Yes -Correct Side, Site, Position Yes Yes -Correct Procedure Yes Yes -Procedure Performed Yes Yes -Type of Procedure Debridement Debridement -Clinical Debridement Subcutaneous Subcutaneous -Tissue Removed Subcutaneous Subcutaneous -Post Debridement (cm) - Length 0.5 0.3 -Post Debridement (cm) - Width 0.5 0.5 -Post Debridement (cm) - Depth 0.1 0.1 -Total Square (Post) (cm) 0.25 0.15 -Area of Debridement (cm) - Length 0.5 0.3 -Area of Debridement (cm) - Width 0.5 0.5 -Total Square (Area) (cm) 0.25 0.15 -Tunneling No No -Undermining/Tunneling No No -Circular Undermining No No -Wound/Ulcer Outcome Not Healed Not Healed -Ulcer Cleansing Rinsed/ Rinsed/ Irrigated with Irrigated with Saline Saline -Foul Odor after Cleansing No No -Bioengineered Tissue No No -Bleeding Controlled with Pressure Pressure -Treatment Response Procedure Procedure Tolerated Well Tolerated Well -Debridement - Subq, 1st 20sq cm No No #14 Right Buttock -Time 11:22 15:51 -Correct Patient Yes Yes -Correct Side, Site, Position Yes Yes -Correct Procedure Yes Yes -Procedure Performed Yes Yes -Type of Procedure Debridement Debridement -Clinical Debridement Muscle / Fascia Muscle / Fascia -Tissue Removed Muscle,Fascia Muscle -Post Debridement (cm) - Length 7 -Post Debridement (cm) - Width 3 -Post Debridement (cm) - Depth 3.7 -Total Square (Post) (cm) 21 -Area of Debridement (cm) - Length 7 -Area of Debridement (cm) - Width 3 -Total Square (Area) (cm) 21 -Tunneling Yes Yes -Tunneling Position (O'clock) 12 12 -Tunneling Distance (cm) 3.7 4.3 -Undermining/Tunneling No No -Circular Undermining No No -Wound/Ulcer Outcome Not Healed Not Healed -Ulcer Cleansing Rinsed/ Rinsed/ Irrigated with Irrigated with Saline Saline -Foul Odor after Cleansing No No -Bioengineered Tissue No No -Bleeding Controlled with Pressure Pressure -Treatment Response Procedure Procedure Tolerated Well Tolerated Well -Assistive Device(s) Wheelchair -Pressure Reduction Wheelchair cushion, Specialty bed -Debridement - Muscle / Fascia, 1st Yes Yes 20sq cm -Debridement, Muscle/Fascia, ea addt'l 1 20sq cm or part thereof #11- sacral -Time 11:23 15:51 -Correct Patient Yes Yes -Correct Side, Site, Position Yes Yes -Correct Procedure Yes Yes -Procedure Performed Yes Yes -Type of Procedure Debridement Debridement -Clinical Debridement Subcutaneous Subcutaneous -Tissue Removed Subcutaneous Subcutaneous -Post Debridement (cm) - Length 0.7 0.7 -Post Debridement (cm) - Width 0.5 0.4 -Post Debridement (cm) - Depth 0.1 0.1 -Total Square (Post) (cm) 0.35 0.28 -Area of Debridement (cm) - Length 0.7 0.7 -Area of Debridement (cm) - Width 0.5 0.4 -Total Square (Area) (cm) 0.35 0.28 -Tunneling No No -Undermining/Tunneling No No -Circular Undermining No No -Wound/Ulcer Outcome Not Healed Not Healed -Ulcer Cleansing Rinsed/ Rinsed/ Irrigated with Irrigated with Saline Saline -Foul Odor after Cleansing No No -Bioengineered Tissue No No -Bleeding Controlled with Pressure Pressure -Treatment Response Procedure Procedure Tolerated Well Tolerated Well -Assistive Device(s) Wheelchair -Pressure Reduction Wheelchair cushion, Specialty bed -Debridement - Subq, 1st 20sq cm Yes Yes Pain Scale: 0-10 Numeric Is Patient Pain Free? Yes Yes - Nurse 3 - General Ulcer D/C NN Start: 06/08/24 10:43 Freq: Status: Active Protocol: Activity Type Activity Date Activity User E-sign Co-sign Detail Recorded Client Recorded Date Recorded By Document 06/08/24 11:[address] [facility] [id number] 06/08/24 11:[address] [facility] Document 06/15/24 16:13 [id number] 06/15/24 16:19 06/08/24 06/15/24 11:37 16:13 Wound Care Center Nurse 3 #16 L Buttocks -Other Dressing fibrocol #15- L HALLUX -Ulcer Cleansing Rinsed/ Irrigated with Saline -Foul Odor after Cleansing No -Primary Dressing Applied Fibracol Plus Fibracol Plus 4x4,Silicone 4x4,NonAdherent Border Foam 4x4 Contact Layer, Silicone Border Foam 4x4 -Other Dressing per rb rn -Fibracol Plus 4x4 1 1 -Silicone Border Foam 4x4 1 1 #14 Right Buttock -Ulcer Cleansing Soap and Water -Foul Odor after Cleansing No -Negative Pressure Wound Therapy Continue Continue -Setting (mmHg) 150 150 -Negative Pressure is Continuous Continuous -NPWT Application Charge NPWT & NPWT & Debridement (nc Debridement (nc ) ) -Wound Comment(s) per anthony rn #11- sacral -Ulcer Cleansing Rinsed/ Irrigated with Saline -Foul Odor after Cleansing No -Primary Dressing Applied Fibracol Plus Silicone Border 4x4,Silicone Foam 4x4 Border Foam 4x4 -Other Dressing fibrocol with adaptic -Fibracol Plus 4x4 0 -Silicone Border Foam 4x4 0 1 Treatment Response Procedure Tolerated Well Pain Scale: 0-10 Numeric Is Patient Pain Free? Yes Yes WC - Visit Discharge Discharge Condition Stable Stable Ambulatory Status Wheelchair Wheelchair Transportation ecf transport Medication Reconcilliation completed & No provided to patient/care provider Clinical Summary of Care Provided Yes Facility Type [facility] Facility Additional Wound Wound debrided: #11 Sacral ulcer Wound Grade/Stage: Stage II Type of Debridement: Excisional debridement Anesthesia Used: 5% Lidocaine Gel Depth: in the subcutaneous layer Percentage of wound debrided: 100 Instrument Used: 3mm curette Tissue Removed: Non viable tissue and slough Severity: Fat Layer Exposed Amount of bleeding with debridement: Mild Bleeding Controlled with: Compression and gauze Patient tolerated procedure: Patient tolerated procedure well Additional Wound Wound debrided: #15 Left great toe ulcer Wound Grade/Stage: Decubitus ulcer stage II Type of Debridement: Excisional debridement Anesthesia Used: 5% Lidocaine Gel Depth: Down to and including healthy tissue Percentage of wound debrided: 100 Instrument Used: 3mm curette Tissue Removed: Non viable tissue and slough Severity: Fat Layer Exposed Amount of bleeding with debridement: Mild Bleeding Controlled with: Compression and gauze Patient tolerated procedure: Patient tolerated procedure well Additional Wound Wound debrided: #16 Left buttocks cluster pressure ulcer Wound Grade/Stage: Stage II Type of Debridement: Excisional debridement Anesthesia Used: 5% Lidocaine Gel Depth: Down to and including healthy tissue and in the subcutaneous layer Percentage of wound debrided: 100 Instrument Used: 3mm curette Tissue Removed: Non viable tissue and slough Severity: Fat Layer Exposed Amount of bleeding with debridement: None Bleeding Controlled with: Pressure Patient tolerated procedure: Patient tolerated procedure well Assessment/Plan Assessment/Plan (1) Decubitus ulcer of sacral region, stage 2: CODE(S): L89.152 - Pressure ulcer of sacral region, stage 2 PLAN: Wash area with antibacterial soap and water apply fibracol to wound base then cover with [place] SAP foam dressing every day (2) Decubitus ulcer of right buttock, stage 4: CODE(S): L89.314 - Pressure ulcer of right buttock, stage 4 PLAN: Follow-up with infectious disease next 2 weeks Wound VAC to be applied to right buttocks at 150 mmHg with black foam in the wound base. Change 3 times per week. Follow-up with us in 1 week (3) Decubitus ulcer of toe, stage 2: CODE(S): L89.892 - Pressure ulcer of other site, stage 2 QUALIFIERS: Laterality: left Qualified Code(s): L89.892 - Pressure ulcer of other site, stage 2 PLAN: Wash left foot with antibacterial soap and water and apply Fibracol to wound base moistened with Adaptic and [place] SAP over top daily Follow-up in 1 week (4) Decubitus ulcer of left buttock, stage 2: CODE(S): L89.322 - Pressure ulcer of left buttock, stage 2 PLAN: Wash with soap and water at the time of the dressing change. Apply Fibracol cover with [place] SAP daily. (5) Chronic anemia: CODE(S): D64.9 - Anemia, unspecified PLAN: Continue ferrous sulfate 325 mg to twice a day with stool softeners B12 injections 1000 mcg q. weekly (6) Malnutrition: CODE(S): E46 - Unspecified protein-calorie malnutrition QUALIFIERS: Malnutrition type: protein-calorie malnutrition Protein-calorie malnutrition severity: moderate Qualified Code(s): E44.0 - Moderate protein-calorie malnutrition PLAN: Continue the Leeroy daily she needs 60 g of protein a day
--- NOTE | 2024-06-16 09:17 | WC ---
PHOTO 06/16/24 LEFT BUTTOCKS
[2024-06-22 08:43] VITALS: BP 115/61; PULSE 78; RESP 18; TEMP 36.2; BMI 16.9
--- NOTE | 2024-06-22 10:21 | PCM.WC.PN ---
History of Present Illness Date of Service: 06/22/24 Chief Complaint: Follow-up right buttocks wound History of Wound: 73-year-old paraplegic patient living at [facility] that developed pressure ulcers on her right buttocks that is pretty deep with showing now a lot of fat tissue and necrotic tissue.. Also has some hardened erythematous tissue around the edge of the wound and currently they have been using honey on the wound base. She also has a sacral wound that is has some depth also from pressure. She states she is currently taking doxycycline and they have been doing wet-to-dry in the perirectal area that is open also the perirectal area is in between her vagina and her rectum it is in a very precarious place. Patient was referred to the emergency room to be transferred to a plastic surgeon or regular surgery for debridement. Progress of Wound: Sacral ulcer is healed. The right buttocks ulcer with the wound VAC and the tunneling at 12:00 is stable. It appears to be shallower. The ulcer bed is a nice beefy pink color. She is tolerating the wound VAC well. She has a new skin tear just distal to the right buttock ulcer from the wound VAC drape being removed. She has new pressure wound cluster on her left ischial area. The left hallux ulcer is healed also. She states she sleeps on an low air loss mattress and has a Roho cushion on her wheelchair. Subjective Subjective Patient is pleased with outcomes Objective Data Objective Data Sacral area healed and left toe healed. Has a newer left ischium that is open from shearing and pressure. Depth is minimal. Right buttocks wound still open positive depth still tunneling at 12 very stable doing well more shallow continue to use wound VAC. We will reculture her today it has been May since her last culture. Vital Signs: Vital Signs Temp Pulse Resp BP 97.1 F L 78 18 115/61 06/22/24 08:43 06/22/24 08:43 06/22/24 08:43 06/22/24 08:43 Weight: 89 lb 6.4 oz Body Mass Index (BMI) 16.9 Lab / Micro Data Attestation: I reviewed the patient's lab results. Lab results narrative: Still anemic but improving with her hemoglobin climbing slowly. Kidney functions are good. Still trying to get a recent free albumin on patient was ordered but never drawn. Physical Exam Const oriented x3 General Appearance: cooperative Orientation / Consciousness: oriented to person, oriented to place and oriented to time Exam Limitations: no limitations Nutritional Appearance: cachectic, underweight and thin HEENT normocephalic Head and Scalp: normal to inspection External Ear: external ears normal Eyes PERRL General Eye: normal appearance of both eyes Neck full ROM General: normal visual inspection Resp normal respiratory effort Effort and Inspection: able to speak in complete sentences Auscultation: clear to auscultation bilaterally Cardio regular rate and regular rhythm Palpation: normal PMI Rate: regular rate Rhythm: regular rhythm GI Rectal Exam: visual inspection abnormal, fistula and other Other Details: Open wound left buttocks and perirectal may be fistula going on. Back/Spine Back/Spine Narrative: Paralysis from waist down Cervical Spine: cervical ROM normal Pelvis: buttocks abnormal right and other soft tissue findings Wound on her coccyx area Skin no rashes or lesions noted Skin Narrative: Open wounds on left buttocks with positive depth and infection possible sepsis sacral area open area nonhealing and perirectal area possibly a fistula. Wounds: wounds noted Wound Narrative: Open wound on coccyx stage II Right buttocks wound stage IV Neuro oriented x3 Psych Appearance: grossly normal Attitude: calm Activity / Motor Behavior: appropriate eye contact Speech: normal speech Mood & Affect: euthymic mood Thought Process: normal thought process Thought Content: normal thought content Attention / Concentration: attention grossly intact Memory / Cognition: memory grossly intact Insight: insight good Judgement: judgement good Debridement Note Debridement Note Wound debrided: #14 Right buttocks decubitus ulcer Laterality: Right Wound Grade/Stage: Stage IV Type of Debridement: Excisional debridement Anesthesia Used: 5% Lidocaine Gel Depth: in the subcutaneous layer and to muscle Percentage of wound debrided: 100 Instrument Used: 5mm curette Tissue Removed: Non viable tissue and slough Severity: Fat Layer Exposed (To the muscles) Amount of bleeding with debridement: Mild Bleeding Controlled with: Compression and gauze Patient tolerated procedure: Patient tolerated procedure well Post-Debridement Measurements and Additional Note: Post-Debridement Measurements/Treatment MARY - Nurse 1 - General Ulcer Assessment Start: 06/08/24 10:43 Freq: Status: Active Protocol: JOSEPHINE Activity Type Activity Date Activity User E-sign Co-sign Detail Recorded Client Recorded Date Recorded By Document 06/08/24 10:43 DL [id number] 06/08/24 11:01 DL Document 06/15/24 15:12 DL [id number] 06/15/24 15:33 DL Document 06/22/24 08:43 DL [id number] 06/22/24 08:55 DL 06/08/24 06/15/24 06/22/24 10:43 15:12 08:43 WC - Today's Visit Information Type of service Follow-up Visit Follow-up Visit Follow-up Visit (Physician/DIRECTOR OF MIDWIFERY/STAFF MIDWIFE (Physician/DIRECTOR OF MIDWIFERY/STAFF MIDWIFE (Physician/DIRECTOR OF MIDWIFERY/STAFF MIDWIFE ) ) ) Arrival Mode Wheelchair Wheelchair Wheelchair Transfer Assistance Manual None None Transfer Assist (Other) x1 Patient Identification Verified (Name & Yes Yes Yes ) Patient Requires Transmission-Based No No No Precautions Height and Weight Body Mass Index (BMI) 16.9 16.9 16.9 BMI Classification Underweight Underweight Underweight Vital Signs Temperature (97.8 F-99.1 F) 97.8 F 98.2 F 97.1 F L Temperature Source Temporal Temporal Temporal Pulse Rate (60-100) 79 73 78 Pulse Location Monitor Monitor Monitor Respiratory Rate (12-18) 18 18 18 Respiratory rate source Observation Observation Blood Pressure (90/60-120/80) 100/58 L 146/69 H 115/61 Blood Pressure Mean (mm Hg) 72 94 79 Source Monitor Monitor Monitor History Since Last Visit- (Skip if this is Patient's initial visit) Have you changed medications since your No No No last visit? Any new allergies or adverse reactions No No No Had a fall/change in ADL's that may No No No increase risk of falls Signs or symptoms of abuse and/or No No No neglect since last visit Have you been in the hospital since your No No No last visit? Has dressing in place as prescribed Yes Yes Yes Has compression in place as prescribed N/A N/A N/A Has offloadiing in place as prescribed Yes Yes N/A Experienced any changes in pain level or No No No management Pain Scale: 0-10 Numeric Is Patient Pain Free? Yes Yes Yes - Nurse 1 - General Ulcer Measurement Start: 06/08/24 10:43 Freq: Status: Active Protocol: Activity Type Activity Date Activity User E-sign Co-sign Detail Recorded Client Recorded Date Recorded By Document 06/08/24 10:43 DL [id number] 06/08/24 11:01 DL Edit Result 06/08/24 10:43 DL (1) [id number] 06/08/24 11:04 DL Document 06/15/24 15:12 DL [id number] 06/15/24 15:33 DL Document 06/22/24 08:43 DL [id number] 06/22/24 08:55 DL (1) #14 Right Buttock - Tunneling Position (O'clock) => 12 - Tunneling Distance (cm) => 5 06/08/24 06/15/24 06/22/24 10:43 15:12 08:43 Wound Center Nurse 1 #11- sacral -Current Size (cm) - Length 0.6 0.1 0.1 -Current Size (cm) - Width 0.3 0.1 0.1 -Current Size (cm) - Depth 0.1 0.1 0.1 -Total Square Cm 0.18 0.01 0.01 -Photo Taken Yes -Exudate Amt None Present None Present None Present -Wound Margin Thickened Thickened -Granulation Amt None Present (0 None Present (0 None Present (0 %) %) %) -Necrosis Amt Small (1-33%) Small (1-33%) Small (1-33%) -Necrotic Tissue Type Eschar Eschar Eschar -Structure Exposed N/A N/A N/A -Texture (Leyla-wound Skin Appearance) Scarring Scarring Scarring -Moisture (Leyla-wound Skin Appearance) No Abnormality No Abnormality No Abnormality -Color (Leyla-wound Skin Appearance) No Abnormality No Abnormality No Abnormality -Temperature (Leyla-wound Skin No Abnormality No Abnormality No Abnormality Appearance) (Pt Warm) (Pt Warm) (Pt Warm) -Tenderness on Palpation (Leyla-wound No No Skin Appearance) -Ulcer Cleansing Soap and Water Soap and Water Soap and Water -Foul Odor after Cleansing No No No -Anesthetic Used 5% Lidocaine 5% Lidocaine Gel Gel #16 L Buttocks -Current Size (cm) - Length 1.5 2 -Current Size (cm) - Width 0.6 2.5 -Current Size (cm) - Depth 0.1 0.1 -Total Square Cm 0.90 5.0 -Photo Taken Yes Yes -Exudate Amt Small Medium -Exudate Type Serosanguineous Serosanguineous -Wound Margin Distinct, Distinct, Outline Outline Attached Attached -Granulation Amt Small (1-33%) Small (1-33%) -Granulation Quality [place] -Necrosis Amt None Present (0 Large (67-100%) %) -Necrotic Tissue Type Adherent Slough Adherent Slough -Structure Exposed N/A N/A -Texture (Leyla-wound Skin Appearance) Scarring Scarring -Moisture (Leyla-wound Skin Appearance) No Abnormality No Abnormality -Color (Leyla-wound Skin Appearance) No Abnormality No Abnormality -Temperature (Leyla-wound Skin No Abnormality No Abnormality Appearance) (Pt Warm) (Pt Warm) -Tenderness on Palpation (Leyla-wound No Skin Appearance) -Ulcer Cleansing Rinsed/ Soap and Water Irrigated with Saline -Foul Odor after Cleansing No Yes, Due to Product Use -Anesthetic Used 5% Lidocaine Gel #15- L HALLUX -Current Size (cm) - Length 0.3 0.7 0.1 -Current Size (cm) - Width 0.3 0.7 0.1 -Current Size (cm) - Depth 0.1 0.1 0.1 -Total Square Cm 0.09 0.49 0.01 -Photo Taken Yes -Exudate Amt Small Small None Present -Exudate Type Serosanguineous -Wound Margin Distinct, Distinct, Flat & Intact Outline Outline Attached Attached -Granulation Amt Small (1-33%) Large (67-100%) Large (67-100%) -Granulation Quality [place] -Necrosis Amt None Present (0 None Present (0 None Present (0 %) %) %) -Necrotic Tissue Type Adherent Slough -Structure Exposed N/A N/A N/A -Texture (Leyla-wound Skin Appearance) Scarring Scarring Scarring -Moisture (Leyla-wound Skin Appearance) No Abnormality No Abnormality No Abnormality -Color (Leyla-wound Skin Appearance) No Abnormality No Abnormality No Abnormality -Temperature (Leyla-wound Skin No Abnormality No Abnormality No Abnormality Appearance) (Pt Warm) (Pt Warm) (Pt Warm) -Tenderness on Palpation (Leyla-wound No No Skin Appearance) -Ulcer Cleansing Soap and Water Rinsed/ Rinsed/ Irrigated with Irrigated with Saline Saline -Foul Odor after Cleansing No No No -Anesthetic Used 5% Lidocaine 5% Lidocaine 5% Lidocaine Gel Gel Gel #14 Right Buttock -Current Size (cm) - Length 6 5.4 6 -Current Size (cm) - Width 4 2.5 4 -Current Size (cm) - Depth 0.3 2.7 3.2 -Total Square Cm 24 13.50 24 -Photo Taken Yes -Tunneling Position (O'clock) 12 12 12 -Tunneling Distance (cm) 5 3 4 -Exudate Amt Medium Medium Medium -Exudate Type Serosanguineous Serosanguineous Serosanguineous -Wound Margin Distinct, Distinct, Distinct, Outline Outline Outline Attached Attached Attached -Granulation Amt Large (67-100%) Large (67-100%) Large (67-100%) -Granulation Quality Red Red Red -Necrosis Amt Small (1-33%) None Present (0 Small (1-33%) %) -Necrotic Tissue Type Adherent Slough Adherent Slough -Structure Exposed N/A N/A N/A -Texture (Leyla-wound Skin Appearance) Scarring Scarring Scarring -Moisture (Leyla-wound Skin Appearance) No Abnormality No Abnormality No Abnormality -Color (Leyla-wound Skin Appearance) No Abnormality No Abnormality No Abnormality -Temperature (Leyla-wound Skin No Abnormality No Abnormality No Abnormality Appearance) (Pt Warm) (Pt Warm) (Pt Warm) -Tenderness on Palpation (Leyla-wound No Skin Appearance) -Ulcer Cleansing Soap and Water Soap and Water Soap and Water -Foul Odor after Cleansing No No No -Anesthetic Used 5% Lidocaine Gel WC - Nurse 2 - General Ulcer CM Notes Start: 06/08/24 10:43 Freq: Status: Active Protocol: Activity Type Activity Date Activity User E-sign Co-sign Detail Recorded Client Recorded Date Recorded By Document 06/08/24 11:19 BMF [id number] 06/08/24 11:33 BMF Edit Result 06/08/24 11:19 BMF (1) [id number] 06/15/24 14:50 BMF Document 06/15/24 15:49 GM [id number] 06/15/24 16:01 Document 06/22/24 08:58 BMF [id number] 06/22/24 09:14 BMF (1) #14 Right Buttock - Debridement, Muscle/Fascia, ea addt'l => 1 20sq cm or part thereof 06/08/24 06/15/24 06/22/24 11:19 15:49 08:58 Wound Center Nurse 2 #11- sacral -Time 11:23 15:51 09:02 -Correct Patient Yes Yes -Correct Side, Site, Position Yes Yes -Correct Procedure Yes Yes -Procedure Performed Yes Yes No -Type of Procedure Debridement Debridement -Clinical Debridement Subcutaneous Subcutaneous -Tissue Removed Subcutaneous Subcutaneous -Post Debridement (cm) - Length 0.7 0.7 0 -Post Debridement (cm) - Width 0.5 0.4 0 -Post Debridement (cm) - Depth 0.1 0.1 0 -Total Square (Post) (cm) 0.35 0.28 0 -Area of Debridement (cm) - Length 0.7 0.7 0 -Area of Debridement (cm) - Width 0.5 0.4 0 -Total Square (Area) (cm) 0.35 0.28 0 -Tunneling No No -Undermining/Tunneling No No -Circular Undermining No No -Wound/Ulcer Outcome Not Healed Not Healed Healed- Epithelialized -Ulcer Cleansing Rinsed/ Rinsed/ Irrigated with Irrigated with Saline Saline -Foul Odor after Cleansing No No -Bioengineered Tissue No No -Bleeding Controlled with Pressure Pressure -Treatment Response Procedure Procedure Tolerated Well Tolerated Well -Assistive Device(s) Wheelchair -Pressure Reduction Wheelchair cushion, Specialty bed -Debridement - Subq, 1st 20sq cm Yes Yes #16 L Buttocks -Time 16:01 09:11 -Correct Patient Yes Yes -Correct Side, Site, Position Yes Yes -Correct Procedure Yes Yes -Procedure Performed Yes Yes -Type of Procedure Debridement Debridement -Clinical Debridement Subcutaneous Subcutaneous -Tissue Removed Subcutaneous Subcutaneous -Post Debridement (cm) - Length 1.7 2.5 -Post Debridement (cm) - Width 1.0 1.5 -Post Debridement (cm) - Depth 0.1 0.2 -Total Square (Post) (cm) 1.70 3.75 -Area of Debridement (cm) - Length 1.7 2.5 -Area of Debridement (cm) - Width 1.0 1.5 -Total Square (Area) (cm) 1.70 3.75 -Tunneling No No -Undermining/Tunneling No No -Circular Undermining No No -Wound/Ulcer Outcome Not Healed Not Healed -Ulcer Cleansing Rinsed/ Rinsed/ Irrigated with Irrigated with Saline Saline -Foul Odor after Cleansing No No -Bioengineered Tissue No No -Bleeding Controlled with Pressure Pressure -Treatment Response Procedure Procedure Tolerated Well Tolerated Well -Debridement - Subq, 1st 20sq cm No Yes #15- L HALLUX -Time 11:24 15:49 09:01 -Correct Patient Yes Yes -Correct Side, Site, Position Yes Yes -Correct Procedure Yes Yes -Procedure Performed Yes Yes No -Type of Procedure Debridement Debridement -Clinical Debridement Subcutaneous Subcutaneous -Tissue Removed Subcutaneous Subcutaneous -Post Debridement (cm) - Length 0.5 0.3 0 -Post Debridement (cm) - Width 0.5 0.5 0 -Post Debridement (cm) - Depth 0.1 0.1 0 -Total Square (Post) (cm) 0.25 0.15 0 -Area of Debridement (cm) - Length 0.5 0.3 0 -Area of Debridement (cm) - Width 0.5 0.5 0 -Total Square (Area) (cm) 0.25 0.15 0 -Tunneling No No -Undermining/Tunneling No No -Circular Undermining No No -Wound/Ulcer Outcome Not Healed Not Healed Healed- Epithelialized -Ulcer Cleansing Rinsed/ Rinsed/ Irrigated with Irrigated with Saline Saline -Foul Odor after Cleansing No No -Bioengineered Tissue No No -Bleeding Controlled with Pressure Pressure NA -Treatment Response Procedure Procedure Tolerated Well Tolerated Well -Debridement - Subq, 1st 20sq cm No No #14 Right Buttock -Time 11:22 15:51 09:04 -Correct Patient Yes Yes Yes -Correct Side, Site, Position Yes Yes Yes -Correct Procedure Yes Yes Yes -Procedure Performed Yes Yes Yes -Type of Procedure Debridement Debridement Debridement -Clinical Debridement Muscle / Fascia Muscle / Fascia Muscle / Fascia -Tissue Removed Muscle,Fascia Muscle Muscle,Fascia -Post Debridement (cm) - Length 7 6 -Post Debridement (cm) - Width 3 3 -Post Debridement (cm) - Depth 3.7 3 -Total Square (Post) (cm) 21 18 -Area of Debridement (cm) - Length 7 6 -Area of Debridement (cm) - Width 3 3 -Total Square (Area) (cm) 21 18 -Tunneling Yes Yes Yes -Tunneling Position (O'clock) 12 12 12 -Tunneling Distance (cm) 3.7 4.3 4 -Undermining/Tunneling No No No -Circular Undermining No No No -Wound/Ulcer Outcome Not Healed Not Healed Not Healed -Ulcer Cleansing Rinsed/ Rinsed/ Rinsed/ Irrigated with Irrigated with Irrigated with Saline Saline Saline -Foul Odor after Cleansing No No No -Bioengineered Tissue No No No -Bleeding Controlled with Pressure Pressure Pressure -Treatment Response Procedure Procedure Procedure Tolerated Well Tolerated Well Tolerated Well -Assistive Device(s) Wheelchair -Pressure Reduction Wheelchair cushion, Specialty bed -Debridement - Muscle / Fascia, 1st Yes Yes Yes 20sq cm -Debridement, Muscle/Fascia, ea addt'l 1 20sq cm or part thereof Pain Scale: 0-10 Numeric Is Patient Pain Free? Yes Yes Yes WC - Nurse 3 - General Ulcer D/C NN Start: 06/08/24 10:43 Freq: Status: Active Protocol: Activity Type Activity Date Activity User E-sign Co-sign Detail Recorded Client Recorded Date Recorded By Document 06/08/24 11:37 BM [id number] 06/08/24 11:38 BMF Document 06/15/24 16:13 KW [id number] 06/15/24 16:19 KW Document 06/22/24 09:50 DL [id number] 06/22/24 09:53 DL 06/08/24 06/15/24 06/22/24 11:37 16:13 09:50 Wound Care Center Nurse 3 #11- sacral -Ulcer Cleansing Rinsed/ Rinsed/ Irrigated with Irrigated with Saline Saline -Foul Odor after Cleansing No -Primary Dressing Applied Fibracol Plus Silicone Border Silicone Border 4x4,Silicone Foam 4x4 Foam 4x4 Border Foam 4x4 -Other Dressing fibrocol with adaptic -Fibracol Plus 4x4 0 -Silicone Border Foam 4x4 0 1 #16 L Buttocks -Ulcer Cleansing Rinsed/ Irrigated with Saline -Foul Odor after Cleansing No -Primary Dressing Applied Fibracol Plus 4x4,Silicone Border Foam 4x4 -Other Dressing fibrocol -Fibracol Plus 4x4 1 -Silicone Border Foam 4x4 1 #15- L HALLUX -Ulcer Cleansing Rinsed/ Irrigated with Saline -Foul Odor after Cleansing No No -Primary Dressing Applied Fibracol Plus Fibracol Plus Silicone Border 4x4,Silicone 4x4,NonAdherent Foam 4x4 Border Foam 4x4 Contact Layer, Silicone Border Foam 4x4 -Other Dressing per rb rn -Fibracol Plus 4x4 1 1 -Silicone Border Foam 4x4 1 1 1 #14 Right Buttock -Ulcer Cleansing Soap and Water Soap and Water -Foul Odor after Cleansing No No -Negative Pressure Wound Therapy Continue Continue Continue -Setting (mmHg) 150 150 150 -Negative Pressure is Continuous Continuous Continuous -Other Dressing White foam -NPWT Application Charge NPWT & NPWT & NPWT & Debridement (nc Debridement (nc Debridement (nc ) ) ) -Wound Comment(s) per rb rn Treatment Response Procedure Procedure Tolerated Well Tolerated Well Pain Scale: 0-10 Numeric Is Patient Pain Free? Yes Yes Yes WC - Visit Discharge Discharge Condition Stable Stable Stable Ambulatory Status Wheelchair Wheelchair Wheelchair Transportation ecf transport Private Auto Medication Reconcilliation completed & No provided to patient/care provider Clinical Summary of Care Provided Yes Facility Type [facility] Director Care Facility Facility Orders Sent Yes Additional Wound Wound debrided: Left ischium Laterality: Left Wound Grade/Stage: Stage II Type of Debridement: Excisional debridement Anesthesia Used: 5% Lidocaine Gel Depth: Down to and including healthy tissue and in the subcutaneous layer Percentage of wound debrided: 100 Instrument Used: 5mm curette Tissue Removed: Slough and fibrin Severity: Fat Layer Exposed Amount of bleeding with debridement: Mild Bleeding Controlled with: Compression and gauze Assessment/Plan Assessment/Plan (1) Decubitus ulcer of sacral region, stage 2: CODE(S): L89.152 - Pressure ulcer of sacral region, stage 2 PLAN: Wound resolved and patient is to just pad and protect (2) Decubitus ulcer of right buttock, stage 4: CODE(S): L89.314 - Pressure ulcer of right buttock, stage 4 PLAN: Cultures obtained will continue Wound VAC to be applied to right buttocks at 150 mmHg with black foam in the wound base and white foam in the tunneling at 12:00. Change 3 times per week. Follow-up with us in 1 week (3) Decubitus ulcer of toe, stage 2: CODE(S): L89.892 - Pressure ulcer of other site, stage 2 QUALIFIERS: Laterality: left Qualified Code(s): L89.892 - Pressure ulcer of other site, stage 2 PLAN: Left toe resolved pad and protect (4) Decubitus ulcer of left buttock, stage 2: CODE(S): L89.322 - Pressure ulcer of left buttock, stage 2 PLAN: Wash with soap and water at the time of the dressing change. Apply Fibracol cover with [place] SAP daily. (5) Chronic anemia: CODE(S): D64.9 - Anemia, unspecified PLAN: Continue ferrous sulfate 325 mg to twice a day with stool softeners B12 injections 1000 mcg q. weekly (6) Malnutrition: CODE(S): E46 - Unspecified protein-calorie malnutrition QUALIFIERS: Malnutrition type: protein-calorie malnutrition Protein-calorie malnutrition severity: moderate Qualified Code(s): E44.0 - Moderate protein-calorie malnutrition PLAN: Continue the Leeroy daily she needs 60 g of protein a day
[2024-06-29 08:23] VITALS: BP 123/78; PULSE 93; RESP 20; TEMP 36.7; BMI 16.9
--- NOTE | 2024-06-29 10:10 | PCM.WC.PN ---
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 Also has some hardened erythematous tissue around the edge of the wound and currently they have been using honey on the wound base. She also has a sacral wound that is has some depth also from pressure. She states she is currently taking doxycycline and they have been doing wet-to-dry in the perirectal area that is open also the perirectal area is in between her vagina and her rectum it is in a very precarious place. Patient was referred to the emergency room to be transferred to a plastic surgeon or regular surgery for debridement. Progress of Wound: Sacral ulcer is healed padding and protecting. The right buttocks ulcer with the wound VAC and the tunneling at 12:00 is stable. Depth measures smaller except for the tunneling is the same. We are going to apply for EpiFix. Cultures came back positive for bacteria and cocci she is started on Cipro and metronidazole she should be cleared to start the epi next week. The ulcer bed is a nice beefy pink color. She is tolerating the wound VAC well. She has a new skin tear just distal to the right buttock ulcer from the wound VAC drape being removed that is healed. She has new pressure wound cluster on her left ischial area. The left hallux ulcer has reopened, we will restart fibrocal and Adaptic over top.. She states she sleeps on an low air loss mattress and has a Roho cushion on her wheelchair. Subjective Subjective Patient is pleased with outcomes measurements are smaller. Not sure how the toe keeps opening she is not sure if they hit it when they are bathing her or she is just because she sleeps on her left side so her left hand looks is not rubbing. She keeps a sock on it and I suggested maybe a bigger pad. Patient is more concerned that her Medicare for skilled care and's July 21 and she would like to have this pretty much cleared up is much as she can before she goes back home for home health care. Objective Data Objective Data As stated above her wound base looks nice and beefy doing well cultures came back positive we will go ahead and start her on Cipro and metronidazole. Ordering EpiFix for next week possibly inserted into the 12:00 area where it has tunneling. Left toe looks very sheared open no depth noted we will go back to fibrocal with padded dressing over top sacrum area looks good we are just padding and protecting left ischium open smaller still superficial bleeds easily with debridement tolerating the Fibracol dressing well. Continue to encourage the protein intake and staying off her right side. Vital Signs: Vital Signs Temp Pulse Resp BP 98.1 F 93 20 H 123/78 H 06/29/24 08:23 06/29/24 08:23 06/29/24 08:23 06/29/24 08:23 Weight: 89 lb 6.4 oz Body Mass Index (BMI) 16.9 Lab / Micro Data Attestation: I reviewed the patient's lab results. Micro: Microbiology 06/22/24 09:10 Wound - Buttock Gram Stain - Final 06/22/24 09:10 Wound - Buttock Wound Culture - Final Klebsiella oxytoca Enterococcus faecalis Haemophilus parainfluenzae 06/22/24 09:10 Wound - Buttock Anaerobic Culture - Final Anaerobic cocci Physical Exam Const oriented x3 General Appearance: cooperative Orientation / Consciousness: oriented to person, oriented to place and oriented to time Exam Limitations: no limitations Nutritional Appearance: cachectic, underweight and thin HEENT normocephalic Head and Scalp: normal to inspection External Ear: external ears normal Eyes PERRL General Eye: normal appearance of both eyes Neck full ROM General: normal visual inspection Resp normal respiratory effort Effort and Inspection: able to speak in complete sentences Auscultation: clear to auscultation bilaterally Cardio regular rate and regular rhythm Palpation: normal PMI Rate: regular rate Rhythm: regular rhythm GI Rectal Exam: visual inspection abnormal, fistula and other Other Details: Open wound left buttocks and perirectal may be fistula going on. Back/Spine Back/Spine Narrative: Paralysis from waist down Cervical Spine: cervical ROM normal Pelvis: buttocks abnormal right and other soft tissue findings Wound on her coccyx area Skin no rashes or lesions noted Skin Narrative: Open wounds on left buttocks with positive depth and infection possible sepsis sacral area open area nonhealing and perirectal area possibly a fistula. Wounds: wounds noted Wound Narrative: Open wound on coccyx stage II Right buttocks wound stage IV Neuro oriented x3 Psych Appearance: grossly normal Attitude: calm Activity / Motor Behavior: appropriate eye contact Speech: normal speech Mood & Affect: euthymic mood Thought Process: normal thought process Thought Content: normal thought content Attention / Concentration: attention grossly intact Memory / Cognition: memory grossly intact Insight: insight good Judgement: judgement good Debridement Note Debridement Note Wound debrided: #14 Right buttocks decubitus ulcer Laterality: Right Wound Grade/Stage: Stage IV Type of Debridement: Excisional debridement Anesthesia Used: 5% Lidocaine Gel Depth: in the subcutaneous layer and to muscle Percentage of wound debrided: 100 Instrument Used: 5mm curette Tissue Removed: Non viable tissue and slough Severity: Fat Layer Exposed (To the muscles) Amount of bleeding with debridement: Mild Bleeding Controlled with: Compression and gauze Patient tolerated procedure: Patient tolerated procedure well Post-Debridement Measurements and Additional Note: Post-Debridement Measurements/Treatment - Nurse 1 - General Ulcer Assessment Start: 06/08/24 10:43 Freq: Status: Active Protocol: JOSEPHINE Activity Type Activity Date Activity User E-sign Co-sign Detail Recorded Client Recorded Date Recorded By Document 06/08/24 10:43 DL [id number] 06/08/24 11:01 DL Document 06/15/24 15:12 DL [id number] 06/15/24 15:33 DL Document 06/22/24 08:43 DL [id number] 06/22/24 08:55 DL Document 06/29/24 08:23 DL [id number] 06/29/24 08:32 DL 06/08/24 06/15/24 06/22/24 10:43 15:12 08:43 - Today's Visit Information Type of service Follow-up Visit Follow-up Visit Follow-up Visit (Physician/FLAME ANNEALING MACHINE OPERATOR (Physician/FLAME ANNEALING MACHINE OPERATOR (Physician/FLAME ANNEALING MACHINE OPERATOR ) ) ) Arrival Mode Wheelchair Wheelchair Wheelchair Transfer Assistance Manual None None Transfer Assist (Other) x1 Patient Identification Verified (Name & Yes Yes Yes ) Patient Requires Transmission-Based No No No Precautions Height and Weight Body Mass Index (BMI) 16.9 16.9 16.9 BMI Classification Underweight Underweight Underweight Vital Signs Temperature (97.8 F-99.1 F) 97.8 F 98.2 F 97.1 F L Temperature Source Temporal Temporal Temporal Pulse Rate (60-100) 79 73 78 Pulse Location Monitor Monitor Monitor Respiratory Rate (12-18) 18 18 18 Respiratory rate source Observation Observation Blood Pressure (90/60-120/80) 100/58 L 146/69 H 115/61 Blood Pressure Mean (mm Hg) 72 94 79 Source Monitor Monitor Monitor History Since Last Visit- (Skip if this is Patient's initial visit) Have you changed medications since your No No No last visit? Any new allergies or adverse reactions No No No Had a fall/change in ADL's that may No No No increase risk of falls Signs or symptoms of abuse and/or No No No neglect since last visit Have you been in the hospital since your No No No last visit? Has dressing in place as prescribed Yes Yes Yes Has compression in place as prescribed N/A N/A N/A Has offloadiing in place as prescribed Yes Yes N/A Experienced any changes in pain level or No No No management Left Footwear Right Footwear Pain Scale: 0-10 Numeric Is Patient Pain Free? Yes Yes Yes 06/29/24 08:23 WC - Today's Visit Information Type of service Follow-up Visit (Physician/FLAME ANNEALING MACHINE OPERATOR ) Arrival Mode Wheelchair Transfer Assistance None Transfer Assist (Other) Patient Identification Verified (Name & Yes ) Patient Requires Transmission-Based No Precautions Height and Weight Body Mass Index (BMI) 16.9 BMI Classification Underweight Vital Signs Temperature (97.8 F-99.1 F) 98.1 F Temperature Source Temporal Pulse Rate (60-100) 93 Pulse Location Monitor Respiratory Rate (12-18) 20 H Respiratory rate source Blood Pressure (90/60-120/80) 123/78 H Blood Pressure Mean (mm Hg) 93 Source Monitor History Since Last Visit- (Skip if this is Patient's initial visit) Have you changed medications since your last visit? Any new allergies or adverse reactions Had a fall/change in ADL's that may increase risk of falls Signs or symptoms of abuse and/or neglect since last visit Have you been in the hospital since your last visit? Has dressing in place as prescribed Yes Has compression in place as prescribed Yes Has offloadiing in place as prescribed Yes Experienced any changes in pain level or Yes management Left Footwear Regular Shoe Right Footwear Regular Shoe Pain Scale: 0-10 Numeric Is Patient Pain Free? Yes - Nurse 1 - General Ulcer Measurement Start: 06/08/24 10:43 Freq: Status: Active Protocol: Activity Type Activity Date Activity User E-sign Co-sign Detail Recorded Client Recorded Date Recorded By Document 06/08/24 10:43 DL [id number] 06/08/24 11:01 DL Edit Result 06/08/24 10:43 DL (1) [id number] 06/08/24 11:04 DL Document 06/15/24 15:12 DL [id number] 06/15/24 15:33 DL Document 06/22/24 08:43 DL [id number] 06/22/24 08:55 DL Document 06/29/24 08:23 DL [id number] 06/29/24 08:32 DL (1) #14 Right Buttock - Tunneling Position (O'clock) => 12 - Tunneling Distance (cm) => 5 06/08/24 06/15/24 06/22/24 10:43 15:12 08:43 Wound Center Nurse 1 #11- sacral -Current Size (cm) - Length 0.6 0.1 0.1 -Current Size (cm) - Width 0.3 0.1 0.1 -Current Size (cm) - Depth 0.1 0.1 0.1 -Total Square Cm 0.18 0.01 0.01 -Photo Taken Yes -Exudate Amt None Present None Present None Present -Wound Margin Thickened Thickened -Granulation Amt None Present (0 None Present (0 None Present (0 %) %) %) -Necrosis Amt Small (1-33%) Small (1-33%) Small (1-33%) -Necrotic Tissue Type Eschar Eschar Eschar -Structure Exposed N/A N/A N/A -Texture (Leyla-wound Skin Appearance) Scarring Scarring Scarring -Moisture (Leyla-wound Skin Appearance) No Abnormality No Abnormality No Abnormality -Color (Leyla-wound Skin Appearance) No Abnormality No Abnormality No Abnormality -Temperature (Leyla-wound Skin No Abnormality No Abnormality No Abnormality Appearance) (Pt Warm) (Pt Warm) (Pt Warm) -Tenderness on Palpation (Leyla-wound No No Skin Appearance) -Ulcer Cleansing Soap and Water Soap and Water Soap and Water -Foul Odor after Cleansing No No No -Anesthetic Used 5% Lidocaine 5% Lidocaine Gel Gel #16 L Buttocks -Current Size (cm) - Length 1.5 2 -Current Size (cm) - Width 0.6 2.5 -Current Size (cm) - Depth 0.1 0.1 -Total Square Cm 0.90 5.0 -Photo Taken Yes Yes -Epithelialization -Tunneling -Undermining/Tunneling -Circular Undermining -Exudate Amt Small Medium -Exudate Type Serosanguineous Serosanguineous -Wound Margin Distinct, Distinct, Outline Outline Attached Attached -Granulation Amt Small (1-33%) Small (1-33%) -Granulation Quality [place] -Necrosis Amt None Present (0 Large (67-100%) %) -Necrotic Tissue Type Adherent Slough Adherent Slough -Structure Exposed N/A N/A -Texture (Leyla-wound Skin Appearance) Scarring Scarring -Moisture (Leyla-wound Skin Appearance) No Abnormality No Abnormality -Color (Leyla-wound Skin Appearance) No Abnormality No Abnormality -Temperature (Leyla-wound Skin No Abnormality No Abnormality Appearance) (Pt Warm) (Pt Warm) -Tenderness on Palpation (Leyla-wound No Skin Appearance) -Ulcer Cleansing Rinsed/ Soap and Water Irrigated with Saline -Foul Odor after Cleansing No Yes, Due to Product Use -Anesthetic Used 5% Lidocaine Gel #15- L HALLUX -Current Size (cm) - Length 0.3 0.7 0.1 -Current Size (cm) - Width 0.3 0.7 0.1 -Current Size (cm) - Depth 0.1 0.1 0.1 -Total Square Cm 0.09 0.49 0.01 -Photo Taken Yes -Exudate Amt Small Small None Present -Exudate Type Serosanguineous -Wound Margin Distinct, Distinct, Flat & Intact Outline Outline Attached Attached -Granulation Amt Small (1-33%) Large (67-100%) Large (67-100%) -Granulation Quality [place] -Necrosis Amt None Present (0 None Present (0 None Present (0 %) %) %) -Necrotic Tissue Type Adherent Slough -Structure Exposed N/A N/A N/A -Texture (Leyla-wound Skin Appearance) Scarring Scarring Scarring -Moisture (Leyla-wound Skin Appearance) No Abnormality No Abnormality No Abnormality -Color (Leyla-wound Skin Appearance) No Abnormality No Abnormality No Abnormality -Temperature (Leyla-wound Skin No Abnormality No Abnormality No Abnormality Appearance) (Pt Warm) (Pt Warm) (Pt Warm) -Tenderness on Palpation (Leyla-wound No No Skin Appearance) -Ulcer Cleansing Soap and Water Rinsed/ Rinsed/ Irrigated with Irrigated with Saline Saline -Foul Odor after Cleansing No No No -Anesthetic Used 5% Lidocaine 5% Lidocaine 5% Lidocaine Gel Gel Gel #14 Right Buttock -Current Size (cm) - Length 6 5.4 6 -Current Size (cm) - Width 4 2.5 4 -Current Size (cm) - Depth 0.3 2.7 3.2 -Total Square Cm 24 13.50 24 -Photo Taken Yes -Tunneling -Tunneling Position (O'clock) 12 12 12 -Tunneling Distance (cm) 5 3 4 -Undermining/Tunneling -Circular Undermining -Exudate Amt Medium Medium Medium -Exudate Type Serosanguineous Serosanguineous Serosanguineous -Wound Margin Distinct, Distinct, Distinct, Outline Outline Outline Attached Attached Attached -Granulation Amt Large (67-100%) Large (67-100%) Large (67-100%) -Granulation Quality [place] -Necrosis Amt Small (1-33%) None Present (0 Small (1-33%) %) -Necrotic Tissue Type Adherent Slough Adherent Slough -Structure Exposed N/A N/A N/A -Texture (Leyla-wound Skin Appearance) Scarring Scarring Scarring -Moisture (Leyla-wound Skin Appearance) No Abnormality No Abnormality No Abnormality -Color (Leyla-wound Skin Appearance) No Abnormality No Abnormality No Abnormality -Temperature (Leyla-wound Skin No Abnormality No Abnormality No Abnormality Appearance) (Pt Warm) (Pt Warm) (Pt Warm) -Tenderness on Palpation (Leyla-wound No Skin Appearance) -Ulcer Cleansing Soap and Water Soap and Water Soap and Water -Foul Odor after Cleansing No No No -Anesthetic Used 5% Lidocaine Gel Lower Limb Edema Present 06/29/24 08:23 Wound Center Nurse 1 #11- sacral -Current Size (cm) - Length -Current Size (cm) - Width -Current Size (cm) - Depth -Total Square Cm -Photo Taken -Exudate Amt -Wound Margin -Granulation Amt -Necrosis Amt -Necrotic Tissue Type -Structure Exposed -Texture (Leyla-wound Skin Appearance) -Moisture (Leyla-wound Skin Appearance) -Color (Leyla-wound Skin Appearance) -Temperature (Leyla-wound Skin Appearance) -Tenderness on Palpation (Leyla-wound Skin Appearance) -Ulcer Cleansing -Foul Odor after Cleansing -Anesthetic Used #16 L Buttocks -Current Size (cm) - Length 1.4 -Current Size (cm) - Width 2.2 -Current Size (cm) - Depth 0.1 -Total Square Cm 3.08 -Photo Taken No -Epithelialization Medium 34-66% -Tunneling No -Undermining/Tunneling No -Circular Undermining No -Exudate Amt Medium -Exudate Type Serosanguineous -Wound Margin Flat & Intact -Granulation Amt Small (1-33%) -Granulation Quality [place] -Necrosis Amt Large (67-100%) -Necrotic Tissue Type Adherent Slough -Structure Exposed -Texture (Leyla-wound Skin Appearance) Assessed -Moisture (Leyla-wound Skin Appearance) Assessed -Color (Leyla-wound Skin Appearance) Assessed -Temperature (Leyla-wound Skin No Abnormality Appearance) (Pt Warm) -Tenderness on Palpation (Leyla-wound No Skin Appearance) -Ulcer Cleansing Soap and Water -Foul Odor after Cleansing No -Anesthetic Used 5% Lidocaine Gel #15- L HALLUX -Current Size (cm) - Length 0.6 -Current Size (cm) - Width 1.5 -Current Size (cm) - Depth 0.1 -Total Square Cm 0.90 -Photo Taken -Exudate Amt -Exudate Type -Wound Margin Flat & Intact -Granulation Amt -Granulation Quality -Necrosis Amt -Necrotic Tissue Type -Structure Exposed -Texture (Leyla-wound Skin Appearance) -Moisture (Leyla-wound Skin Appearance) -Color (Leyla-wound Skin Appearance) -Temperature (Leyla-wound Skin Appearance) -Tenderness on Palpation (Leyla-wound Skin Appearance) -Ulcer Cleansing -Foul Odor after Cleansing -Anesthetic Used #14 Right Buttock -Current Size (cm) - Length 5.2 -Current Size (cm) - Width 3.0 -Current Size (cm) - Depth 2.0 -Total Square Cm 15.60 -Photo Taken -Tunneling Yes -Tunneling Position (O'clock) 12 -Tunneling Distance (cm) 3.5 -Undermining/Tunneling No -Circular Undermining No -Exudate Amt Medium -Exudate Type -Wound Margin Thickened & Rolled Under -Granulation Amt Large (67-100%) -Granulation Quality [place] -Necrosis Amt Small (1-33%) -Necrotic Tissue Type -Structure Exposed -Texture (Leyla-wound Skin Appearance) Assessed -Moisture (Leyla-wound Skin Appearance) Assessed -Color (Leyla-wound Skin Appearance) Assessed -Temperature (Leyla-wound Skin No Abnormality Appearance) (Pt Warm) -Tenderness on Palpation (Leyla-wound No Skin Appearance) -Ulcer Cleansing Soap and Water -Foul Odor after Cleansing No -Anesthetic Used 5% Lidocaine Gel Lower Limb Edema Present NA WC - Nurse 2 - General Ulcer CM Notes Start: 06/08/24 10:43 Freq: Status: Active Protocol: Activity Type Activity Date Activity User E-sign Co-sign Detail Recorded Client Recorded Date Recorded By Document 06/08/24 11:19 BMF [id number] 06/08/24 11:33 BMF Edit Result 06/08/24 11:19 BMF (1) [id number] 06/15/24 14:50 BMF Document 06/15/24 15:49 GM [id number] 06/15/24 16:01 GM Document 06/22/24 08:58 BMF [id number] 06/22/24 09:14 BMF Document 06/29/24 08:39 BMF [id number] 06/29/24 08:49 BMF (1) #14 Right Buttock - Debridement, Muscle/Fascia, ea addt'l => 1 20sq cm or part thereof 06/08/24 06/15/24 06/22/24 11:19 15:49 08:58 Wound Center Nurse 2 #11- sacral -Time 11:23 15:51 09:02 -Correct Patient Yes Yes -Correct Side, Site, Position Yes Yes -Correct Procedure Yes Yes -Procedure Performed Yes Yes No -Type of Procedure Debridement Debridement -Clinical Debridement Subcutaneous Subcutaneous -Tissue Removed Subcutaneous Subcutaneous -Post Debridement (cm) - Length 0.7 0.7 0 -Post Debridement (cm) - Width 0.5 0.4 0 -Post Debridement (cm) - Depth 0.1 0.1 0 -Total Square (Post) (cm) 0.35 0.28 0 -Area of Debridement (cm) - Length 0.7 0.7 0 -Area of Debridement (cm) - Width 0.5 0.4 0 -Total Square (Area) (cm) 0.35 0.28 0 -Tunneling No No -Undermining/Tunneling No No -Circular Undermining No No -Wound/Ulcer Outcome Not Healed Not Healed Healed- Epithelialized -Ulcer Cleansing Rinsed/ Rinsed/ Irrigated with Irrigated with Saline Saline -Foul Odor after Cleansing No No -Bioengineered Tissue No No -Bleeding Controlled with Pressure Pressure -Treatment Response Procedure Procedure Tolerated Well Tolerated Well -Assistive Device(s) Wheelchair -Pressure Reduction Wheelchair cushion, Specialty bed -Debridement - Subq, 1st 20sq cm Yes Yes #16 L Buttocks -Time 16:01 09:11 -Correct Patient Yes Yes -Correct Side, Site, Position Yes Yes -Correct Procedure Yes Yes -Procedure Performed Yes Yes -Type of Procedure Debridement Debridement -Clinical Debridement Subcutaneous Subcutaneous -Tissue Removed Subcutaneous Subcutaneous -Post Debridement (cm) - Length 1.7 2.5 -Post Debridement (cm) - Width 1.0 1.5 -Post Debridement (cm) - Depth 0.1 0.2 -Total Square (Post) (cm) 1.70 3.75 -Area of Debridement (cm) - Length 1.7 2.5 -Area of Debridement (cm) - Width 1.0 1.5 -Total Square (Area) (cm) 1.70 3.75 -Tunneling No No -Undermining/Tunneling No No -Circular Undermining No No -Wound/Ulcer Outcome Not Healed Not Healed -Ulcer Cleansing Rinsed/ Rinsed/ Irrigated with Irrigated with Saline Saline -Foul Odor after Cleansing No No -Bioengineered Tissue No No -Bleeding Controlled with Pressure Pressure -Treatment Response Procedure Procedure Tolerated Well Tolerated Well -Offloading -Debridement - Subq, 1st 20sq cm No Yes #15- L HALLUX -Time 11:24 15:49 09:01 -Correct Patient Yes Yes -Correct Side, Site, Position Yes Yes -Correct Procedure Yes Yes -Procedure Performed Yes Yes No -Type of Procedure Debridement Debridement -Clinical Debridement Subcutaneous Subcutaneous -Tissue Removed Subcutaneous Subcutaneous -Post Debridement (cm) - Length 0.5 0.3 0 -Post Debridement (cm) - Width 0.5 0.5 0 -Post Debridement (cm) - Depth 0.1 0.1 0 -Total Square (Post) (cm) 0.25 0.15 0 -Area of Debridement (cm) - Length 0.5 0.3 0 -Area of Debridement (cm) - Width 0.5 0.5 0 -Total Square (Area) (cm) 0.25 0.15 0 -Tunneling No No -Undermining/Tunneling No No -Circular Undermining No No -Wound/Ulcer Outcome Not Healed Not Healed Healed- Epithelialized -Ulcer Cleansing Rinsed/ Rinsed/ Irrigated with Irrigated with Saline Saline -Foul Odor after Cleansing No No -Bioengineered Tissue No No -Bleeding Controlled with Pressure Pressure NA -Treatment Response Procedure Procedure Tolerated Well Tolerated Well -Debridement - Subq, 1st 20sq cm No No #14 Right Buttock -Time 11:22 15:51 09:04 -Correct Patient Yes Yes Yes -Correct Side, Site, Position Yes Yes Yes -Correct Procedure Yes Yes Yes -Procedure Performed Yes Yes Yes -Type of Procedure Debridement Debridement Debridement -Clinical Debridement Muscle / Fascia Muscle / Fascia Muscle / Fascia -Tissue Removed Muscle,Fascia Muscle Muscle,Fascia -Post Debridement (cm) - Length 7 6 -Post Debridement (cm) - Width 3 3 -Post Debridement (cm) - Depth 3.7 3 -Total Square (Post) (cm) 21 18 -Area of Debridement (cm) - Length 7 6 -Area of Debridement (cm) - Width 3 3 -Total Square (Area) (cm) 21 18 -Tunneling Yes Yes Yes -Tunneling Position (O'clock) 12 12 12 -Tunneling Distance (cm) 3.7 4.3 4 -Undermining/Tunneling No No No -Circular Undermining No No No -Wound/Ulcer Outcome Not Healed Not Healed Not Healed -Ulcer Cleansing Rinsed/ Rinsed/ Rinsed/ Irrigated with Irrigated with Irrigated with Saline Saline Saline -Foul Odor after Cleansing No No No -Bioengineered Tissue No No No -Bleeding Controlled with Pressure Pressure Pressure -Treatment Response Procedure Procedure Procedure Tolerated Well Tolerated Well Tolerated Well -Assistive Device(s) Wheelchair -Pressure Reduction Wheelchair cushion, Specialty bed -Debridement - Muscle / Fascia, 1st Yes Yes Yes 20sq cm -Debridement, Muscle/Fascia, ea addt'l 1 20sq cm or part thereof Pain Scale: 0-10 Numeric Is Patient Pain Free? Yes Yes Yes 06/29/24 08:39 Wound Center Nurse 2 #11- sacral -Time -Correct Patient -Correct Side, Site, Position -Correct Procedure -Procedure Performed -Type of Procedure -Clinical Debridement -Tissue Removed -Post Debridement (cm) - Length -Post Debridement (cm) - Width -Post Debridement (cm) - Depth -Total Square (Post) (cm) -Area of Debridement (cm) - Length -Area of Debridement (cm) - Width -Total Square (Area) (cm) -Tunneling -Undermining/Tunneling -Circular Undermining -Wound/Ulcer Outcome -Ulcer Cleansing -Foul Odor after Cleansing -Bioengineered Tissue -Bleeding Controlled with -Treatment Response -Assistive Device(s) -Pressure Reduction -Debridement - Subq, 1st 20sq cm #16 L Buttocks -Time 08:45 -Correct Patient Yes -Correct Side, Site, Position Yes -Correct Procedure Yes -Procedure Performed Yes -Type of Procedure Debridement -Clinical Debridement Subcutaneous -Tissue Removed Subcutaneous -Post Debridement (cm) - Length 1 -Post Debridement (cm) - Width 1.8 -Post Debridement (cm) - Depth 0.1 -Total Square (Post) (cm) 1.8 -Area of Debridement (cm) - Length 1 -Area of Debridement (cm) - Width 1.8 -Total Square (Area) (cm) 1.8 -Tunneling No -Undermining/Tunneling No -Circular Undermining No -Wound/Ulcer Outcome Not Healed -Ulcer Cleansing Rinsed/ Irrigated with Saline -Foul Odor after Cleansing No -Bioengineered Tissue No -Bleeding Controlled with Pressure -Treatment Response Procedure Tolerated Well -Offloading No -Debridement - Subq, 1st 20sq cm No #15- L HALLUX -Time 08:43 -Correct Patient Yes -Correct Side, Site, Position Yes -Correct Procedure Yes -Procedure Performed Yes -Type of Procedure Debridement -Clinical Debridement Subcutaneous -Tissue Removed Subcutaneous -Post Debridement (cm) - Length 0.5 -Post Debridement (cm) - Width 1.7 -Post Debridement (cm) - Depth 0.1 -Total Square (Post) (cm) 0.85 -Area of Debridement (cm) - Length 0.5 -Area of Debridement (cm) - Width 1.7 -Total Square (Area) (cm) 0.85 -Tunneling No -Undermining/Tunneling No -Circular Undermining No -Wound/Ulcer Outcome Not Healed -Ulcer Cleansing Rinsed/ Irrigated with Saline -Foul Odor after Cleansing No -Bioengineered Tissue No -Bleeding Controlled with Pressure -Treatment Response Procedure Tolerated Well -Debridement - Subq, 1st 20sq cm Yes #14 Right Buttock -Time 08:40 -Correct Patient Yes -Correct Side, Site, Position Yes -Correct Procedure Yes -Procedure Performed Yes -Type of Procedure Debridement -Clinical Debridement Muscle / Fascia -Tissue Removed Muscle,Fascia -Post Debridement (cm) - Length 6 -Post Debridement (cm) - Width 3 -Post Debridement (cm) - Depth 2.1 -Total Square (Post) (cm) 18 -Area of Debridement (cm) - Length 6 -Area of Debridement (cm) - Width 3 -Total Square (Area) (cm) 18 -Tunneling Yes -Tunneling Position (O'clock) 12 -Tunneling Distance (cm) 4 -Undermining/Tunneling No -Circular Undermining No -Wound/Ulcer Outcome Not Healed -Ulcer Cleansing Rinsed/ Irrigated with Saline -Foul Odor after Cleansing No -Bioengineered Tissue No -Bleeding Controlled with Pressure -Treatment Response Procedure Tolerated Well -Assistive Device(s) -Pressure Reduction -Debridement - Muscle / Fascia, 1st Yes 20sq cm -Debridement, Muscle/Fascia, ea addt'l 20sq cm or part thereof Pain Scale: 0-10 Numeric Is Patient Pain Free? Yes WC - Nurse 3 - General Ulcer D/C NN Start: 06/08/24 10:43 Freq: Status: Active Protocol: Activity Type Activity Date Activity User E-sign Co-sign Detail Recorded Client Recorded Date Recorded By Document 06/08/24 11:37 [facility] [id number] 06/08/24 11:38 BM Document 06/15/24 16:13 KW [id number] 06/15/24 16:19 KW Document 06/22/24 09:50 DL [id number] 06/22/24 09:53 DL 06/08/24 06/15/24 06/22/24 11:37 16:13 09:50 [facility] Nurse 3 #11- sacral -Ulcer Cleansing Rinsed/ Rinsed/ Irrigated with Irrigated with Saline Saline -Foul Odor after Cleansing No -Primary Dressing Applied Fibracol Plus Silicone Border Silicone Border 4x4,Silicone Foam 4x4 Foam 4x4 Border Foam 4x4 -Other Dressing fibrocol with adaptic -Fibracol Plus 4x4 0 -Silicone Border Foam 4x4 0 1 #16 L Buttocks -Ulcer Cleansing Rinsed/ Irrigated with Saline -Foul Odor after Cleansing No -Primary Dressing Applied Fibracol Plus 4x4,Silicone Border Foam 4x4 -Other Dressing fibrocol -Fibracol Plus 4x4 1 -Silicone Border Foam 4x4 1 #15- L HALLUX -Ulcer Cleansing Rinsed/ Irrigated with Saline -Foul Odor after Cleansing No No -Primary Dressing Applied Fibracol Plus Fibracol Plus Silicone Border 4x4,Silicone 4x4,NonAdherent Foam 4x4 Border Foam 4x4 Contact Layer, Silicone Border Foam 4x4 -Other Dressing per rb rn -Fibracol Plus 4x4 1 1 -Silicone Border Foam 4x4 1 1 1 #14 Right Buttock -Ulcer Cleansing Soap and Water Soap and Water -Foul Odor after Cleansing No No -Negative Pressure Wound Therapy Continue Continue Continue -Setting (mmHg) 150 150 150 -Negative Pressure is Continuous Continuous Continuous -Other Dressing White foam -NPWT Application Charge NPWT & NPWT & NPWT & Debridement (nc Debridement (nc Debridement (nc ) ) ) -Wound Comment(s) per rb rn Treatment Response Procedure Procedure Tolerated Well Tolerated Well Pain Scale: 0-10 Numeric Is Patient Pain Free? Yes Yes Yes WC - Visit Discharge Discharge Condition Stable Stable Stable Ambulatory Status Wheelchair Wheelchair Wheelchair Transportation ecf transport Private Auto Medication Reconcilliation completed & No provided to patient/care provider Clinical Summary of Care Provided Yes Facility Type [facility] Facility Orders Sent Yes Additional Wound Wound debrided: Left ischium Laterality: Left Wound Grade/Stage: Stage II Type of Debridement: Excisional debridement Anesthesia Used: 5% Lidocaine Gel Depth: Down to and including healthy tissue and in the subcutaneous layer Percentage of wound debrided: 100 Instrument Used: 5mm curette Tissue Removed: Slough and fibrin Severity: Fat Layer Exposed Amount of bleeding with debridement: Mild Bleeding Controlled with: Compression and gauze Additional Wound Wound debrided: Left great toe Hallux Laterality: Left Wound Grade/Stage: Decubitus ulcer left toe Type of Debridement: Excisional debridement Anesthesia Used: 5% Lidocaine Gel Depth: Down to and including healthy tissue Percentage of wound debrided: 100 Instrument Used: 3mm curette Tissue Removed: Fibrin Severity: Limited To Skin Breakdown Amount of bleeding with debridement: Mild Bleeding Controlled with: Compression and gauze Patient tolerated procedure: Patient tolerated procedure well Assessment/Plan Assessment/Plan (1) Decubitus ulcer of sacral region, stage 2: CODE(S): L89.152 - Pressure ulcer of sacral region, stage 2 PLAN: Wound resolved and patient is to just pad and protect (2) Decubitus ulcer of right buttock, stage 4: CODE(S): L89.314 - Pressure ulcer of right buttock, stage 4 PLAN: Cultures obtained will continue Wound VAC to be applied to right buttocks at 150 mmHg with black foam in the wound base and white foam in the tunneling at 12:00. Change 3 times per week. Follow-up with us in 1 week (3) Decubitus ulcer of toe, stage 2: CODE(S): L89.892 - Pressure ulcer of other site, stage 2 QUALIFIERS: Laterality: left Qualified Code(s): L89.892 - Pressure ulcer of other site, stage 2 PLAN: Wash with antibacterial soap and water pat dry apply Fibracol Adaptic and foam dressing over left great toe follow-up in 1 week (4) Decubitus ulcer of left buttock, stage 2: CODE(S): L89.322 - Pressure ulcer of left buttock, stage 2 PLAN: Wash with soap and water at the time of the dressing change. Apply Fibracol cover with [place] SAP daily. (5) Chronic anemia: CODE(S): D64.9 - Anemia, unspecified PLAN: Continue ferrous sulfate 325 mg to twice a day with stool softeners B12 injections 1000 mcg q. weekly (6) Malnutrition: CODE(S): E46 - Unspecified protein-calorie malnutrition QUALIFIERS: Malnutrition type: protein-calorie malnutrition Protein-calorie malnutrition severity: moderate Qualified Code(s): E44.0 - Moderate protein-calorie malnutrition PLAN: Continue the Leeroy daily she needs 60 g of protein a day (7) Wound infection: CODE(S): T14.8XXA - Other injury of unspecified body region, initial encounter; L08.9 - Local infection of the skin and subcutaneous tissue, unspecified PLAN: Cultures came back positive start with ciprofloxacin 500 mg twice a day for 14 days Anaerobes came back positive we will start her on metronidazole 250 mg 3 times a day for 14 days
== END 2024-07-01 23:59 | disposition intermediate care facility (04) ==
LOC: WC 08:30
PROVIDERS: PCP Family Medicine; Referring Provider Family Medicine; Visit Provider Nurse Practitioner
DX: L89.152 Pressure ulcer of sacral region, stage 2 (principal); L89.314 Pressure ulcer of right buttock, stage 4; G82.20 Paraplegia, unspecified; L89.322 Pressure ulcer of left buttock, stage 2; D64.9 Anemia, unspecified; E44.0 Moderate protein-calorie malnutrition; Z68.1 Body mass index [BMI] 19.9 or less, adult
CPT/HCPCS: 11042; 11043; 11046; 87070; 87075; 87077; 87186; 87205; 97606

== ENCOUNTER → 2024-07-12 | Outpatient (CLI) | payer MEDICARE, OTHER, SELFPAY ==
--- NOTE | 2024-07-12 13:58 | BD_ITS ---
PROCEDURE: DEXA BONE DENSITY STUDY REASON FOR EXAM: F, age 74 y/o . Postmenopausal. TECHNIQUE: DEXA scan of the lumbar spine and left hip. COMPARISON: Comparison is made with prior study dated February 19, 2022. FINDINGS: Lumbar Spine (L1-L4): g/cm2 (0.736)/T-score (-2.8)/Z-score (-0.5) findings are suggestive of osteoporotic with a high fracture risk. Left Femur Total: g/cm2 (0.229)/T-score (-5.8)/Z-score (-4.2) Left Femoral Neck: g/cm2 (0.228)/T-score (-5.6)/Z-score (-1.6) The T-Scores on the most recent prior examination were: Lumbar Spine (L1-L4): There has been worsening of bone density since the previous examination. Left Femur Total: Worsening of 44.4%. BD/Dexa Bone Density Study IMPRESSION: The patient is considered osteoporosis as outlined below according to World Hea [employer] Organization (WHO) criteria with a high fracture risk. There has been worsening of bone density since the previous exa mination. Reading Location: [place] [address]
--- NOTE | 2024-07-12 14:45 | BI_ITS ---
PROCEDURE: SCRN MAMM (CAD)W/JD BILAT REASON FOR EXAM: F, Age 74 y/o , SCREENING FOR BREAST CANCER. No family history. TECHNIQUE: Bilateral screening digital breast tomosynthesis with 2D and 3D images. Computer aided detection. COMPARISON: Prior exam(s) dating back to May 29, 2023.. FINDINGS: The breasts are heterogeneously dense which may obscure small masses. Stable examination. No suspicious masses, areas of developing architectural distortion, or suspicious calcifications. BI/SCRN MAMM (CAD)W/JD BILAT IMPRESSION: BI-RADS 1: NEGATIVE. RECOMMEND ANNUAL MAMMOGRAPHIC SCREENING. Follow-up code: Routine Follow-up The patient will be notified of the results by letter. Reading Location: [place] [address]
== END | disposition home or self-care (01) ==
LOC: OPBD 13:51
PROVIDERS: PCP Family Medicine; Referring Provider Family Medicine; Visit Provider Family Medicine
DX: Z12.31 Encounter for screening mammogram for malignant neoplasm of breast (principal); M81.0 Age-related osteoporosis without current pathological fracture
CPT/HCPCS: 77063; 77067; 77080

== ENCOUNTER 2024-07-27 08:30 | Outpatient (RCR) | payer MEDICARE, OTHER, SELFPAY ==
[2024-07-02 01:12] VITALS: BP 123/78; PULSE 93; RESP 20; TEMP 36.7; BMI 16.9
[2024-07-06 15:12] VITALS: BP 126/70; PULSE 78; RESP 18; TEMP 36.3; BMI 16.9
--- NOTE | 2024-07-11 15:08 | PCM.WC.HP ---
History of Present Illness Date of Service: 07/06/24 Chief Complaint: Right buttock, left ischial, and left great toe ulcerations History of Wound: The patient's past medical history is as documented below: 73-year-old paraplegic patient living at [facility] that developed pressure ulcers on her right buttocks that was pretty deep with exposed fat and necrotic tissue. Also had some hardened erythematous tissue around the edge of the wound and had been using honey on the wound base. She also had a sacral pressure ulcer. She had been taking doxycycline and doing wet-to-dry dressing changes to her perirectal ulceration in the perineum. The patient is paraplegic due to transverse myelitis. [facility] Medical History Sepsis Low iron Open wound Bowel obstruction Skin tear Iron deficiency anemia due to chronic blood loss Pressure ulcer of coccygeal region, stage 3 Implantable intrathecal infusion pump present Transverse myelitis Wears glasses Cancer Uses wheelchair Back pain Non-smoker BiPAP (biphasic positive airway pressure) dependence History of edema History of echocardiogram History of stress test Pressure ulcer of left foot, stage 3 Burn of third degree of buttock, subsequent encounter Chronic venous insufficiency Pressure ulcer of right ischium Chronic central neuropathic pain Central pain syndrome Insomnia Muscle spasm Neuropathic pain Depression Anxiety SVT (supraventricular tachycardia) UTI (urinary tract infection) Hypokalemia Leukopenia Open wound of genital labia Acute osteomyelitis of left pelvic region Constipation Anemia Hip fracture Pressure sore of left ischium, stage 4 Left perineal ischial pressure ulcer Hypotension Self-catheterizes urinary bladder Chronic abdominal pain Home Medications ?Medication ?Instructions ?Recorded ?Last Taken ?Type trazodone 100 mg tablet 100 mg PO QHS #30 TABLETS 09/14/15 03/30/24 Rx polyethylene glycol 3350 17 gram 17 g PO DAILY PRN PRN Constipation 12/02/18 Unknown History oral powder packet gabapentin 800 mg tablet 800 mg PO 4X/DAYCM #30 tabs 04/21/19 03/30/24 Rx clonidine HCl 0.2 mg tablet 0.2 mg PO QHS 09/04/20 03/29/24 History duloxetine 60 mg capsule,delayed 60 mg PO DAILY 01/14/21 03/30/24 History release (Cymbalta) ferrous gluconate 324 mg (38 mg 324 mg PO BID #60 tabs 02/19/22 03/30/24 Rx iron) tablet ondansetron HCl 4 mg tablet 4 mg PO TID PRN PRN nausea and 12/16/23 Unknown History vomiting duloxetine 30 mg capsule,delayed 30 mg PO DAILY 03/31/24 03/30/24 History release ciprofloxacin HCl 500 mg tablet 500 mg PO BID #10 tabs 04/05/24 Unknown Rx food supplemt, lactose-reduced 120 ml PO 4X/DAY #0 mL 04/05/24 Unknown Rx 0.08 gram-1.5 kcal/mL oral liquid (Ensure Plus High Protein) metoprolol tartrate 25 mg tablet 25 mg PO BID #0 tabs 04/05/24 Unknown Rx metronidazole 500 mg tablet 500 mg PO TID #15 tabs 04/05/24 Unknown Rx oxycodone 5 mg tablet 15 mg (3 x 5 mg) PO Q6 2 days #8 04/05/24 Unknown Rx tabs cephalexin 250 mg capsule 250 mg PO BID 04/13/24 Unknown History doxycycline monohydrate PO 04/13/24 Unknown History naproxen 375 mg tablet 375 mg PO BID 04/13/24 Unknown History oxycodone 15 mg tablet 15 mg PO Q4H PRN PRN Pain 20 days 07/06/24 Unknown Rx #60 tabs Allergy/AdvReac Type Severity Reaction Status Date / Time ziconotide (From Prialt) Allergy Severe Other Verified 07/05/24 14:30 Family History Father Colon cancer Mother No problems noted. Other Cancer Hypertension Surgical History History of lysis of adhesions Hx of colonoscopy S/P insertion of spinal cord stimulator Hx of tonsillectomy Social History household members: other details: The patient lives with her daughter. current occupation: Unemployed Smoking Status: Never smoker Vital Signs Vital Signs Vital Signs: Weight Weight: 89 lb 6.4 oz Body Mass Index (BMI) 16.9 Debridement Note Debridement Note Post-Debridement Measurements and Additional Note: Post-Debridement Measurements/Treatment WC - Nurse 1 - General Ulcer Assessment Start: 07/06/24 15:10 Freq: Status: Active Protocol: JOSEPHINE Activity Type Activity Date Activity User E-sign Co-sign Detail Recorded Client Recorded Date Recorded By Document 07/06/24 15:12 BEN [id number] 07/06/24 15:28 DL 07/06/24 15:12 - Today's Visit Information Type of service Follow-up Visit (Physician/PRODUCTION SUPPORT ENGINEER ) Arrival Mode Wheelchair Transfer Assistance Manual Transfer Assist (Other) x2 Patient Identification Verified (Name & Yes ) Patient Requires Transmission-Based No Precautions Height and Weight Body Mass Index (BMI) 16.9 BMI Classification Underweight Vital Signs Temperature (97.8 F-99.1 F) 97.4 F L Temperature Source Temporal Pulse Rate (60-100) 78 Pulse Location Monitor Respiratory Rate (12-18) 18 Respiratory rate source Observation Blood Pressure (90/60-120/80) 126/70 H Blood Pressure Mean 88 Source Monitor History Since Last Visit- (Skip if this is Patient's initial visit) Have you changed medications since your No last visit? Any new allergies or adverse reactions No Had a fall/change in ADL's that may No increase risk of falls Signs or symptoms of abuse and/or No neglect since last visit Have you been in the hospital since your No last visit? Has compression in place as prescribed No Has offloadiing in place as prescribed Yes Experienced any changes in pain level or No management Pain Scale: 0-10 Numeric Is Patient Pain Free? Yes - Nurse 1 - General Ulcer Measurement Start: 07/06/24 15:10 Freq: Status: Active Protocol: Activity Type Activity Date Activity User E-sign Co-sign Detail Recorded Client Recorded Date Recorded By Document 07/06/24 15:12 BEN [id number] 07/06/24 15:28 DL 07/06/24 15:12 Wound Center Nurse 1 #16 L Buttocks -Current Size (cm) - Length 1.5 -Current Size (cm) - Width 1.7 -Current Size (cm) - Depth 0.1 -Total Square Cm 2.55 -Exudate Amt Medium -Exudate Type Sanguineous -Wound Margin Distinct, Outline Attached -Granulation Amt None Present (0 %) -Necrosis Amt Large (67-100%) -Necrotic Tissue Type Adherent Slough -Structure Exposed N/A -Texture (Leyla-wound Skin Appearance) Scarring -Moisture (Leyla-wound Skin Appearance) No Abnormality -Color (Leyla-wound Skin Appearance) No Abnormality -Temperature (Leyla-wound Skin No Abnormality Appearance) (Pt Warm) -Tenderness on Palpation (Leyla-wound No Skin Appearance) -Ulcer Cleansing Soap and Water -Foul Odor after Cleansing No -Anesthetic Used 5% Lidocaine Gel #15- L HALLUX -Current Size (cm) - Length 0.8 -Current Size (cm) - Width 0.6 -Current Size (cm) - Depth 0.1 -Total Square Cm 0.48 -Exudate Amt Small -Wound Margin Distinct, Outline Attached -Granulation Amt Small (1-33%) -Granulation Quality [place] -Necrosis Amt Small (1-33%) -Necrotic Tissue Type Adherent Slough -Structure Exposed N/A -Texture (Leyla-wound Skin Appearance) Scarring -Moisture (Leyla-wound Skin Appearance) No Abnormality -Color (Leyla-wound Skin Appearance) No Abnormality -Temperature (Leyla-wound Skin No Abnormality Appearance) (Pt Warm) -Tenderness on Palpation (Leyla-wound No Skin Appearance) -Ulcer Cleansing Soap and Water -Foul Odor after Cleansing No -Anesthetic Used 5% Lidocaine Gel #14 Right Buttock -Current Size (cm) - Length 3.5 -Current Size (cm) - Width 5.1 -Current Size (cm) - Depth 2.2 -Total Square Cm 17.85 -Exudate Amt Medium -Exudate Type Serosanguineous -Wound Margin Distinct, Outline Attached -Granulation Amt Large (67-100%) -Granulation Quality [place] -Necrosis Amt Small (1-33%) -Necrotic Tissue Type Adherent Slough -Structure Exposed N/A -Texture (Leyla-wound Skin Appearance) Scarring -Moisture (Leyla-wound Skin Appearance) No Abnormality -Color (Leyla-wound Skin Appearance) No Abnormality -Temperature (Leyla-wound Skin No Abnormality Appearance) (Pt Warm) -Tenderness on Palpation (Leyla-wound No Skin Appearance) -Ulcer Cleansing Soap and Water -Foul Odor after Cleansing No -Anesthetic Used 5% Lidocaine Gel WC - Nurse 2 - General Ulcer CM Notes Start: 07/06/24 15:10 Freq: Status: Active Protocol: Activity Type Activity Date Activity User E-sign Co-sign Detail Recorded Client Recorded Date Recorded By Document 07/06/24 15:47 POOJA [id number] 07/06/24 15:55 JF 07/06/24 15:47 Wound Center Nurse 2 #16 L Buttocks -Time 15:48 -Correct Patient Yes -Correct Side, Site, Position Yes -Correct Procedure Yes -Procedure Performed Yes -Type of Procedure Debridement -Clinical Debridement Subcutaneous -Tissue Removed Subcutaneous -Post Debridement (cm) - Length 2.0 -Post Debridement (cm) - Width 1.8 -Post Debridement (cm) - Depth 0.2 -Total Square (Post) (cm) 3.60 -Area of Debridement (cm) - Length 2.0 -Area of Debridement (cm) - Width 1.8 -Total Square (Area) (cm) 3.60 -Tunneling No -Undermining/Tunneling No -Circular Undermining No -Wound/Ulcer Outcome Not Healed -Ulcer Cleansing Rinsed/ Irrigated with Saline -Foul Odor after Cleansing No -Bioengineered Tissue No -Bleeding Controlled with Pressure -Treatment Response Procedure Tolerated Well -Offloading No -Pressure Reduction Wheelchair cushion, Specialty bed -Debridement - Subq, 1st 20sq cm Yes #15- L HALLUX -Time 15:53 -Correct Patient Yes -Correct Side, Site, Position Yes -Correct Procedure Yes -Procedure Performed Yes -Type of Procedure Debridement -Clinical Debridement Subcutaneous -Tissue Removed Subcutaneous -Post Debridement (cm) - Length 1.2 -Post Debridement (cm) - Width 0.6 -Post Debridement (cm) - Depth 0.1 -Total Square (Post) (cm) 0.72 -Area of Debridement (cm) - Length 1.2 -Area of Debridement (cm) - Width 0.6 -Total Square (Area) (cm) 0.72 -Tunneling No -Undermining/Tunneling No -Circular Undermining No -Wound/Ulcer Outcome Not Healed -Ulcer Cleansing Rinsed/ Irrigated with Saline -Foul Odor after Cleansing No -Bioengineered Tissue No -Bleeding Controlled with Pressure -Treatment Response Procedure Tolerated Well -Offloading No -Debridement - Subq, 1st 20sq cm No #14 Right Buttock -Time 15:48 -Correct Patient Yes -Correct Side, Site, Position Yes -Correct Procedure Yes -Procedure Performed Yes -Type of Procedure Debridement -Clinical Debridement Muscle / Fascia -Tissue Removed Muscle,Fascia -Post Debridement (cm) - Length 6.1 -Post Debridement (cm) - Width 3 -Post Debridement (cm) - Depth 2.1 -Total Square (Post) (cm) 18.3 -Area of Debridement (cm) - Length 6.1 -Area of Debridement (cm) - Width 3 -Total Square (Area) (cm) 18.3 -Tunneling No -Undermining/Tunneling Yes -Undermining/Tunneling Starts (O'clock 12 ) -Maximum Distance (cm) 4.2 -Circular Undermining No -Wound/Ulcer Outcome Not Healed -Ulcer Cleansing Rinsed/ Irrigated with Saline -Foul Odor after Cleansing No -Bioengineered Tissue No -Bleeding Controlled with Pressure -Treatment Response Procedure Tolerated Well -Offloading No -Pressure Reduction Wheelchair cushion, Specialty bed -Debridement - Muscle / Fascia, 1st Yes 20sq cm Pain Scale: 0-10 Numeric Is Patient Pain Free? Yes - Nurse 3 - General Ulcer D/C NN Start: 07/06/24 15:10 Freq: Status: Active Protocol: Activity Type Activity Date Activity User E-sign Co-sign Detail Recorded Client Recorded Date Recorded By Document 07/06/24 16:05 DL [id number] 07/06/24 16:10 DL 07/06/24 16:05 Wound Care Center Nurse 3 #16 L Buttocks -Ulcer Cleansing Soap and Water -Foul Odor after Cleansing No -Primary Dressing Applied Fibracol Plus 4x4,Silicone Border Foam 4x4 -Fibracol Plus 4x4 1 -Silicone Border Foam 4x4 1 #15- L HALLUX -Ulcer Cleansing Soap and Water -Foul Odor after Cleansing No -Primary Dressing Applied Silicone Border Foam 4x4 -Silicone Border Foam 4x4 1 #14 Right Buttock -Ulcer Cleansing Soap and Water -Negative Pressure Wound Therapy Continue -NPWT Application Charge NPWT & Debridement (nc ) -Setting (mmHg) 150 -Negative Pressure is Continuous -Regranex (If Applicable) Continue Treatment Response Procedure Tolerated Well Pain Scale: 0-10 Numeric Is Patient Pain Free? Yes - Visit Discharge Discharge Condition Stable Ambulatory Status Wheelchair Transportation Private [facility] Facility Type [facility] Care Facility Orders Sent Yes Assessment/Plan Assessment/Plan (1) Decubitus ulcer of right buttock, stage 4: CODE(S): L89.314 - Pressure ulcer of right buttock, stage 4 PLAN: Cultures obtained will continue Wound VAC to be applied to right buttocks at 150 mmHg with black foam in the wound base and white foam in the tunneling at 12:00. Change 3 times per week. Follow-up with us in 1 week (2) Decubitus ulcer of toe, stage 2: CODE(S): L89.892 - Pressure ulcer of other site, stage 2 QUALIFIERS: Laterality: left Qualified Code(s): L89.892 - Pressure ulcer of other site, stage 2 PLAN: Wash with antibacterial soap and water pat dry apply Fibracol Adaptic and foam dressing over left great toe follow-up in 1 week (3) Decubitus ulcer of left buttock, stage 2: CODE(S): L89.322 - Pressure ulcer of left buttock, stage 2 PLAN: Wash with soap and water at the time of the dressing change. Apply Fibracol cover with [place] SAP daily. (4) Chronic anemia: CODE(S): D64.9 - Anemia, unspecified PLAN: Continue ferrous sulfate 325 mg to twice a day with stool softeners B12 injections 1000 mcg q. weekly (5) Malnutrition: CODE(S): E46 - Unspecified protein-calorie malnutrition QUALIFIERS: Malnutrition type: protein-calorie malnutrition Protein-calorie malnutrition severity: moderate Qualified Code(s): E44.0 - Moderate protein-calorie malnutrition PLAN: Continue the Leeroy daily she needs 60 g of protein a day (6) Wound infection: CODE(S): T14.8XXA - Other injury of unspecified body region, initial encounter; L08.9 - Local infection of the skin and subcutaneous tissue, unspecified PLAN: Cultures came back positive start with ciprofloxacin 500 mg twice a day for 14 days Anaerobes came back positive we will start her on metronidazole 250 mg 3 times a day for 14 days (7) Transverse myelitis: CODE(S): G37.3 - 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 (8) BiPAP (biphasic positive airway pressure) dependence: CODE(S): Z99.89 - Dependence on other enabling machines and devices (9) Paraplegia: CODE(S): G82.20 - Paraplegia, unspecified
--- NOTE | 2024-07-11 15:18 | HP.PCM_ITS ---
History of Present Illness Date of Service: 07/06/24 Chief Complaint: Right buttock, left ischial, and left great toe ulcerations History of Wound: The patient's past medical history is as documented below: 73-year-old paraplegic patient living at [facility] that developed pressure ulcers on her right buttocks that was pretty deep with exposed fat and necrotic tissue. Also had some hardened erythematous tissue around the edge of the wound and had been using honey on the wound base. She also had a sacral pressure ulcer. She had been taking doxycycline and doing wet-to-dry dressing changes to her perirectal ulceration in the perineum. The patient is paraplegic due to transverse myelitis. [facility] Medical History (Updated 07/11/24 @ 15:[address] Juan Carlos Barrow MD) Pressure ulcer of ischium, stage 2 Sepsis Low iron Open wound Bowel obstruction Skin tear Iron deficiency anemia due to chronic blood loss Pressure ulcer of coccygeal region, stage 3 Implantable intrathecal infusion pump present Transverse myelitis Wears glasses Cancer Uses wheelchair Back pain Non-smoker BiPAP (biphasic positive airway pressure) dependence History of edema History of echocardiogram History of stress test Pressure ulcer of left foot, stage 3 Burn of third degree of buttock, subsequent encounter Chronic venous insufficiency Pressure ulcer of right ischium Chronic central neuropathic pain Central pain syndrome Insomnia Muscle spasm Neuropathic pain Depression Anxiety SVT (supraventricular tachycardia) UTI (urinary tract infection) Hypokalemia Leukopenia Open wound of genital labia Acute osteomyelitis of left pelvic region Constipation Anemia Hip fracture Pressure sore of left ischium, stage 4 Left perineal ischial pressure ulcer Hypotension Self-catheterizes urinary bladder Chronic abdominal pain Home Medications ?Medication ?Instructions ?Recorded ?Last Taken ?Type trazodone 100 mg tablet 100 mg PO QHS #30 TABLETS 03/30/24 Rx polyethylene glycol 3350 17 gram 17 g PO DAILY PRN PRN Constipation 12/02/18 Unknown History oral powder packet gabapentin 800 mg tablet 800 mg PO 4X/DAYCM #30 tabs 04/21/19 03/30/24 Rx clonidine HCl 0.2 mg tablet 0.2 mg PO QHS 09/04/20 History duloxetine 60 mg capsule,delayed 60 mg PO DAILY 03/30/24 History release (Cymbalta) ferrous gluconate 324 mg (38 mg 324 mg PO BID #60 tabs 02/19/22 03/30/24 Rx iron) tablet ondansetron HCl 4 mg tablet 4 mg PO TID PRN PRN nausea and 12/16/23 Unknown History vomiting duloxetine 30 mg capsule,delayed 30 mg PO DAILY 03/30/24 History release ciprofloxacin HCl 500 mg tablet 500 mg PO BID #10 tabs 04/05/24 Unknown Rx food supplemt, lactose-reduced 120 ml PO 4X/DAY #0 mL 04/05/24 Unknown Rx 0.08 gram-1.5 kcal/mL oral liquid (Ensure Plus High Protein) metoprolol tartrate 25 mg tablet 25 mg PO BID #0 tabs 04/05/24 Unknown Rx metronidazole 500 mg tablet 500 mg PO TID #15 tabs 07/25 Unknown Rx oxycodone 5 mg tablet 15 mg (3 x 5 mg) PO Q6 2 day s #8 04/05/24 Unknown Rx tabs cephalexin 250 mg capsule 250 mg PO BID 04/13/24 Unkno wn History doxycycline monohydrate PO 04/13/24 Unknown History naproxen 375 mg tablet 375 mg PO BID 04/13/24 Unkno wn History oxycodone 15 mg tablet 15 mg PO Q4H PRN PRN Pain 20 days 07/06/24 Unknown Rx #60 tabs Allergy/AdvReac Type Severity Reaction Status Date / Time ziconotide (From Prialt) Allergy Severe Other Verified 07/05/24 14:30 Family History Father Colon cancer Mother No problems noted. Other Cancer Hypertension Surgical History History of lysis of adhesions Hx of colonoscopy S/P insertion of spinal cord stimulator Hx of tonsillectomy Social History household members: other details: The patient lives with her daughter. current occupation: Unemployed Smoking Status: Never smoker Vital Signs Vital Signs Vital Signs: Weight Weight: 89 lb 6.4 oz Body Mass Index (BMI) 16.9 Physical Exam Const alert, oriented x3 and no apparent distress Constitutional Narrative: The patient appears thin and frail. Her BMI is 16.9. She is paraplegic. General Appearance: cooperative and comfortable Orientation / Consciousness: awake, oriented to person, oriented to place and oriented to time Exam Limitations: physical limitations HEENT normocephalic and head/scalp atraumatic Head and Scalp: normal to inspection, normocephalic and atraumatic Face and Sinus: normal facial exam External Ear: external ears normal Eyes EOMs intact bilaterally General Eye: normal appearance of both eyes Resp normal respiratory effort, normal air movement, no retractions and no use of accessory muscles Effort and Inspection: able to speak in complete sentences Extremity no calf tenderness General Extremity: Negative for clubbing or cyanosis Skin Wound Narrative: Ulcerations are noted on the patient's right buttock. It is rather large in size, and full-thickness, extending into the subcutaneous tissues and underlying muscle. An ulceration is also noted on the left ischium. There is also an ulceration involving the left hallux. The left ischial and left hallux ulcerations are full-thickness, extending through dermis and into the subcutaneous tissue. Dimensions of each ulceration are documented elsewhere. There is no sign of infection or cellulitis. There is a moderate amount of bioburden and nonviable tissue at each site. Neuro oriented x3 and CN's II-XII intact bilaterally Neuro Narrative: The patient is paraplegic. Sensorium / Orientation: awake, alert, oriented to person, oriented to place and oriented to time Psych Appearance: grossly normal and appropriate Attitude: calm Activity / Motor Behavior: appropriate eye contact Speech: normal speech Mood & Affect: euthymic mood Thought Process: normal thought process Thought Content: normal thought content Attention / Concentration: attention grossly intact Debridement Note Debridement Note Wound debrided: Right buttock pressure ulceration Laterality: Right Wound Grade/Stage: Stage IV Type of Debridement: Excisional debridement Anesthesia Used: 5% Lidocaine Gel Depth: Down to and including healthy tissue, in the subcutaneous layer and to muscle Percentage of wound debrided: 100 Instrument Used: 5mm curette Tissue Removed: Bioburden and nonviable tissue Severity: Necrosis of Muscle Amount of bleeding with debridement: Mild Bleeding Controlled with: Compression and gauze Patient tolerated procedure: Patient tolerated procedure well Post-Debridement Measurements and Additional Note: Post-Debridement Measurements/Treatment MARY - Nurse 1 - General Ulcer Assessment Start: 07/06/24 15:10 Freq: Status: Active Protocol: WC.LOWEXT Activity Type Activity Date Activity User E-sign Co-sign Detail Recorded Client Recorded Date Recorded By Document 07/06/24 15:12 BEN [id number] 07/06/24 15:28 DL 07/06/24 15:12 - Today's Visit Information Type of service Follow-up Visit (Physician/POCKET SECRETARY ASSEMBLER ) Arrival Mode Wheelchair Transfer Assistance Manual Transfer Assist (Other) x2 Patient Identification Verified (Name & Yes ) Patient Requires Transmission-Based No Precautions Height and Weight Body Mass Index (BMI) 16.9 BMI Classification Underweight Vital Signs Temperature (97.8 F-99.1 F) 97.4 F L Temperature Source Temporal Pulse Rate (60-100) 78 Pulse Location Monitor Respiratory Rate (12-18) 18 Respiratory rate source Observation Blood Pressure (90/60-120/80) 126/70 H Blood Pressure Mean 88 Source Monitor History Since Last Visit- (Skip if this is Patient's initial visit) Have you changed medications since your No last visit? Any new allergies or adverse reactions No Had a fall/change in ADL's that may No increase risk of falls Signs or symptoms of abuse and/or No neglect since last visit Have you been in the hospital since your No last visit? Has compression in place as prescribed No Has offloadiing in place as prescribed Yes Experienced any changes in pain level or No management Pain Scale: 0-10 Numeric Is Patient Pain Free? Yes - Nurse 1 - General Ulcer Measurement Start: 07/06/24 15:10 Freq: Status: Active Protocol: Activity Type Activity Date Activity User E-sign Co-sign Detail Recorded Client Recorded Date Recorded By Document 07/06/24 15:12 BEN [id number] 07/06/24 15:28 07/06/24 15:12 Wound Center Nurse 1 #16 L Buttocks -Current Size (cm) - Length 1.5 -Current Size (cm) - Width 1.7 -Current Size (cm) - Depth 0.1 -Total Square Cm 2.55 -Exudate Amt Medium -Exudate Type Sanguineous -Wound Margin Distinct, Outline Attached -Granulation Amt None Present (0 %) -Necrosis Amt Large (67-100%) -Necrotic Tissue Type Adherent Slough -Structure Exposed N/A -Texture (Leyla-wound Skin Appearance) Scarring -Moisture (Leyla-wound Skin Appearance) No Abnormality -Color (Leyla-wound Skin Appearance) No Abnormality -Temperature (Leyla-wound Skin No Abnormality Appearance) (Pt Warm) -Tenderness on Palpation (Leyla-wound No Skin Appearance) -Ulcer Cleansing Soap and Water -Foul Odor after Cleansing No -Anesthetic Used 5% Lidocaine Gel #15- L HALLUX -Current Size (cm) - Length 0.8 -Current Size (cm) - Width 0.6 -Current Size (cm) - Depth 0.1 -Total Square Cm 0.48 -Exudate Amt Small -Wound Margin Distinct, Outline Attached -Granulation Amt Small (1-33%) -Granulation Quality [place] -Necrosis Amt Small (1-33%) -Necrotic Tissue Type Adherent Slough -Structure Exposed N/A -Texture (Leyla-wound Skin Appearance) Scarring -Moisture (Leyla-wound Skin Appearance) No Abnormality -Color (Leyla-wound Skin Appearance) No Abnormality -Temperature (Leyla-wound Skin No Abnormality Appearance) (Pt Warm) -Tenderness on Palpation (Leyla-wound No Skin Appearance) -Ulcer Cleansing Soap and Water -Foul Odor after Cleansing No -Anesthetic Used 5% Lidocaine Gel #14 Right Buttock -Current Size (cm) - Length 3.5 -Current Size (cm) - Width 5.1 -Current Size (cm) - Depth 2.2 -Total Square Cm 17.85 -Exudate Amt Medium -Exudate Type Serosanguineous -Wound Margin Distinct, Outline Attached -Granulation Amt Large (67-100%) -Granulation Quality [place] -Necrosis Amt Small (1-33%) -Necrotic Tissue Type Adherent Slough -Structure Exposed N/A -Texture (Leyla-wound Skin Appearance) Scarring -Moisture (Leyla-wound Skin Appearance) No Abnormality -Color (Leyla-wound Skin Appearance) No Abnormality -Temperature (Leyla-wound Skin No Abnormality Appearance) (Pt Warm) -Tenderness on Palpation (Leyla-wound No Skin Appearance) -Ulcer Cleansing Soap and Water -Foul Odor after Cleansing No -Anesthetic Used 5% Lidocaine Gel WC - Nurse 2 - General Ulcer CM Notes Start: 07/06/24 15:10 Freq: Status: Active Protocol: Activity Type Activity Date Activity User E-sign Co-sign Detail Recorded Client Recorded Date Recorded By Document 07/06/24 15:47 JF [id number] 07/06/24 15:55 POOJA 07/06/24 15:47 Wound Center Nurse 2 #16 L Buttocks -Time 15:48 -Correct Patient Yes -Correct Side, Site, Position Yes -Correct Procedure Yes -Procedure Performed Yes -Type of Procedure Debridement -Clinical Debridement Subcutaneous -Tissue Removed Subcutaneous -Post Debridement (cm) - Length 2.0 -Post Debridement (cm) - Width 1.8 -Post Debridement (cm) - Depth 0.2 -Total Square (Post) (cm) 3.60 -Area of Debridement (cm) - Length 2.0 -Area of Debridement (cm) - Width 1.8 -Total Square (Area) (cm) 3.60 -Tunneling No -Undermining/Tunneling No -Circular Undermining No -Wound/Ulcer Outcome Not Healed -Ulcer Cleansing Rinsed/ Irrigated with Saline -Foul Odor after Cleansing No -Bioengineered Tissue No -Bleeding Controlled with Pressure -Treatment Response Procedure Tolerated Well -Offloading No -Pressure Reduction Wheelchair cushion, Specialty bed -Debridement - Subq, 1st 20sq cm Yes #15- L HALLUX -Time 15:53 -Correct Patient Yes -Correct Side, Site, Position Yes -Correct Procedure Yes -Procedure Performed Yes -Type of Procedure Debridement -Clinical Debridement Subcutaneous -Tissue Removed Subcutaneous -Post Debridement (cm) - Length 1.2 -Post Debridement (cm) - Width 0.6 -Post Debridement (cm) - Depth 0.1 -Total Square (Post) (cm) 0.72 -Area of Debridement (cm) - Length 1.2 -Area of Debridement (cm) - Width 0.6 -Total Square (Area) (cm) 0.72 -Tunneling No -Undermining/Tunneling No -Circular Undermining No -Wound/Ulcer Outcome Not Healed -Ulcer Cleansing Rinsed/ Irrigated with Saline -Foul Odor after Cleansing No -Bioengineered Tissue No -Bleeding Controlled with Pressure -Treatment Response Procedure Tolerated Well -Offloading No -Debridement - Subq, 1st 20sq cm No #14 Right Buttock -Time 15:48 -Correct Patient Yes -Correct Side, Site, Position Yes -Correct Procedure Yes -Procedure Performed Yes -Type of Procedure Debridement -Clinical Debridement Muscle / Fascia -Tissue Removed Muscle,Fascia -Post Debridement (cm) - Length 6.1 -Post Debridement (cm) - Width 3 -Post Debridement (cm) - Depth 2.1 -Total Square (Post) (cm) 18.3 -Area of Debridement (cm) - Length 6.1 -Area of Debridement (cm) - Width 3 -Total Square (Area) (cm) 18.3 -Tunneling No -Undermining/Tunneling Yes -Undermining/Tunneling Starts (O'clock 12 ) -Maximum Distance (cm) 4.2 -Circular Undermining No -Wound/Ulcer Outcome Not Healed -Ulcer Cleansing Rinsed/ Irrigated with Saline -Foul Odor after Cleansing No -Bioengineered Tissue No -Bleeding Controlled with Pressure -Treatment Response Procedure Tolerated Well -Offloading No -Pressure Reduction Wheelchair cushion, Specialty bed -Debridement - Muscle / Fascia, 1st Yes 20sq cm Pain Scale: 0-10 Numeric Is Patient Pain Free? Yes - Nurse 3 - General Ulcer D/C NN Start: 07/06/24 15:10 Freq: Status: Active Protocol: Activity Type Activity Date Activity User E-sign Co-sign Detail Recorded Client Recorded Date Recorded By Document 07/06/24 16:05 DL [id number] 07/06/24 16:10 DL 07/06/24 16:05 Wound Care Center Nurse 3 #16 L Buttocks -Ulcer Cleansing Soap and Water -Foul Odor after Cleansing No -Primary Dressing Applied Fibracol Plus 4x4,Silicone Border Foam 4x4 -Fibracol Plus 4x4 1 -Silicone Border Foam 4x4 1 #15- L HALLUX -Ulcer Cleansing Soap and Water -Foul Odor after Cleansing No -Primary Dressing Applied Silicone Border Foam 4x4 -Silicone Border Foam 4x4 1 #14 Right Buttock -Ulcer Cleansing Soap and Water -Negative Pressure Wound Therapy Continue -NPWT Application Charge NPWT & Debridement (nc ) -Setting (mmHg) 150 -Negative Pressure is Continuous -Regranex (If Applicable) Continue Treatment Response Procedure Tolerated Well Pain Scale: 0-10 Numeric Is Patient Pain Free? Yes - Visit Discharge Discharge Condition Stable Ambulatory Status Wheelchair Transportation Private Auto Facility Type [facility] Facility Orders Sent Yes Additional Wound Wound debrided: Left ischial and left hallux pressure ulcerations Laterality: Left Wound Grade/Stage: Stage II Type of Debridement: Excisional debridement Anesthesia Used: 5% Lidocaine Gel Depth: Down to and including healthy tissue and in the subcutaneous layer Percentage of wound debrided: 100 Instrument Used: 5mm curette Tissue Removed: Bioburden and devitalized tissue Severity: Fat Layer Exposed Amount of bleeding with debridement: Mild Bleeding Controlled with: Compression and gauze Patient tolerated procedure: Patient tolerated procedure well Charges/Coding Multi Select Codes Visit Charges Office Visit/Consults: 27957 OV L4 Est 30min Integumentary Integumentary CPT Codes: 25347 Criselda subq tissue 20 sq cm/< [place] 76090 Criselda musc/fascia 20 sq cm/< Assessment/Plan Assessment/Plan (1) Decubitus ulcer of right buttock, stage 4: CODE(S): L89.314 - Pressure ulcer of right buttock, stage 4 PLAN: Wound VAC to be applied to right buttocks at 150 mmHg with black foam in the wound base and white foam in the tunneling at 12:00. Change 3 times per week. Follow-up in 1 week (2) Pressure ulcer of ischium, stage 2: CODE(S): L89.302 - Pressure ulcer of unspecified buttock, stage 2 QUALIFIERS: Laterality: left Qualified Code(s): L89.322 - Press ure ulcer of left buttock, stage 2 PLAN: Wash with antibacterial soap and water, pat dry, apply Fibracol on a daily basis. (3) Decubitus ulcer of toe, stage 2: CODE(S): L89.892 - Pressure ulcer of other site, stage 2 QUALIFIERS: Laterality: left Qualified Code(s): L89.892 - Pressure ulcer of other site, stage 2 PLAN: Wash with antibacterial soap and water pat dry apply Fibracol Adaptic and foam dressing over left great toe follow-up in 1 week (4) Chronic anemia: CODE(S): D64.9 - Anemia, unspecified (5) Malnutrition: CODE(S): E46 - Unspecified protein-calorie malnutrition QUALIFIERS: Malnutrition type: protein-calorie malnutrition Protein-calorie malnutrition severity: moderate Qualified Code(s): E44.0 - Moderate protein-calorie malnutrition PLAN: Continue the Leeroy daily she needs 60 g of protein a day (6) Wound infection: CODE(S): T14.8XXA - Other injury of unspecified body region, initial encounter; L08.9 - Local infection of the skin and subcutaneous tissue, unspecified (7) Transverse myelitis: CODE(S): G37.3 - 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 (8) BiPAP (biphasic positive airway pressure) dependence: CODE(S): Z99.89 - Dependence on other enabling machines and devices (9) Paraplegia: CODE(S): G82.20 - Paraplegia, unspecified PLAN: Plan This is a 74-year-old female paraplegic with pressure ulcerations of the right buttock, left ischium, and left great toe. We have discussed offloading measures. The patient has an air mattress and gel cushion. She is to reposition frequently. We are to continue the use of the Wound VAC to the right buttock ulceration, which will be changed 2-3 times weekly. Fibracol is to be used topically on a daily basis relative to the ulcerations in the left ischial area and the left hallux. The patient has been urged to optimize her nutritional intake. It appears as though appeal for the use of an allograft has been approved, and will be left to the discretion of the patient's established wound care provider. The patient is to return in 1 week for reevaluation by her established provider. Total time: 40 minutes
[2024-07-13 08:38] VITALS: BP 130/70; PULSE 88; RESP 18; TEMP 36.1; BMI 16.9
--- NOTE | 2024-07-13 11:24 | PCM.WC.PN ---
History of Present Illness Date of Service: 07/13/24 Chief Complaint: Right buttock, left ischial, and left great toe ulcerations History of Wound: The patient's past medical history is as documented below: 73-year-old paraplegic patient living at [facility] [place] that developed pressure ulcers on her right buttocks that was pretty deep with exposed fat and necrotic tissue. Also had some hardened erythematous tissue around the edge of the wound and had been using honey on the wound base. She also had a sacral pressure ulcer. She had been taking doxycycline and doing wet-to-dry dressing changes to her perirectal ulceration in the perineum. The patient is paraplegic due to transverse myelitis. Progress of Wound: The measurements on the right buttocks pressure ulcer is much improved with a more shallow and length and width is much smaller. Seen by a vascular surgeon last week and he discussed with her may be possibly having a flap done so we discussed that maybe we could see with Dr. Anders who is our house plastic surgeon and have him evaluate her next week. We will hold on the EpiFix until he does his evaluation to see if she is a surgical candidate in the meantime she is continue taking her Leeroy and eating better and getting her supplements then. Her left ischium is still open smaller but has a lot of slough on top we will switch her from fibber call over to Aquacel silver to see if we can clean off some of the slough and get her down to good tissue right ischium is probably from the wound VAC coverage and it tears her skin so it is much smaller and more superficial but still there will can we will try using fibber call underneath the drape. As for her left toe it is also much smaller and she continues using fibber call and it continues to heal. Subjective Subjective Patient is more concerned about that she is supposed to be leaving the shelter next week and going home and what I felt about it but I told her I thought she should at least consider either staying at the shelter which would be $500 a day or go to assisted living which would be $400 a day which I suggested she could handle the assisted living because she is still be under nursing and they would she could have home health care come in there and help her do the dressing and the wound VAC. He will also depend on what Dr. Anders decides on if she is a surgical candidate or not. She is pleased with this depth and the width and how well it is healing as it is now. Objective Data Objective Data As stated above no odor patient is finishing up on her antibiotics is doing very well feels healthier is taking her supplements well went over labs with her that she does be on iron pills for her anemia and supplements for her prealbumin. Wound VAC is doing its job and it is really making it smaller Vital Signs: Vital Signs Temp Pulse Resp BP 97 F L 88 18 130/70 H 07/13/24 08:38 07/13/24 08:38 07/13/24 08:38 07/13/24 08:38 Weight: 89 lb 6.4 oz Body Mass Index (BMI) 16.9 Lab / Micro Data Attestation: I reviewed the patient's lab results. Lab results narrative: So her hemoglobin is at 12 so she has been maintaining that with the iron pills very good and her prealbumin in May was 15 which is within the normal range for her nutrition which were very pleased with so she is continue drinking the Leeroy or the Premier and she is tolerating it well and she is starting to eat regular food more to so that helps with her looks healthier. Physical Exam Const oriented x3 General Appearance: cooperative Orientation / Consciousness: oriented to person, oriented to place and oriented to time Exam Limitations: no limitations Nutritional Appearance: cachectic, underweight and thin HEENT normocephalic Head and Scalp: normal to inspection External Ear: external ears normal Eyes PERRL General Eye: normal appearance of both eyes Neck full ROM General: normal visual inspection Resp normal respiratory effort Effort and Inspection: able to speak in complete sentences Auscultation: clear to auscultation bilaterally Cardio regular rate and regular rhythm Palpation: normal PMI Rate: regular rate Rhythm: regular rhythm GI Rectal Exam: visual inspection abnormal, fistula and other Other Details: Open wound left buttocks and perirectal may be fistula going on. Back/Spine Back/Spine Narrative: Paralysis from waist down Cervical Spine: cervical ROM normal Pelvis: buttocks abnormal right and other soft tissue findings Wound on her coccyx area Skin no rashes or lesions noted Skin Narrative: Open wounds on left buttocks with positive depth and infection possible sepsis sacral area open area nonhealing and perirectal area possibly a fistula. Wounds: wounds noted Wound Narrative: Open wound on coccyx stage II Right buttocks wound stage IV Neuro oriented x3 Psych Appearance: grossly normal Attitude: calm Activity / Motor Behavior: appropriate eye contact Speech: normal speech Mood & Affect: euthymic mood Thought Process: normal thought process Thought Content: normal thought content Attention / Concentration: attention grossly intact Memory / Cognition: memory grossly intact Insight: insight good Judgement: judgement good Debridement Note Debridement Note Wound debrided: #14 Right buttocks decubitus ulcer Laterality: Right Wound Grade/Stage: Stage IV Type of Debridement: Excisional debridement Anesthesia Used: 5% Lidocaine Gel Depth: in the subcutaneous layer and to muscle Percentage of wound debrided: 100 Instrument Used: 5mm curette Tissue Removed: Non viable tissue and slough Severity: Fat Layer Exposed (To the muscles) Amount of bleeding with debridement: Mild Bleeding Controlled with: Compression and gauze Patient tolerated procedure: Patient tolerated procedure well Post-Debridement Measurements and Additional Note: Post-Debridement Measurements/Treatment - Nurse 1 - General Ulcer Assessment Start: 07/06/24 15:10 Freq: Status: Active Protocol: JOSEPHINE Activity Type Activity Date Activity User E-sign Co-sign Detail Recorded Client Recorded Date Recorded By Document 07/06/24 15:12 DL [id number] 07/06/24 15:28 DL Document 07/13/24 08:38 RB [id number] 07/13/24 08:44 RB 07/06/24 07/13/24 15:12 08:38 - Today's Visit Information Type of service Follow-up Visit Follow-up Visit (Physician/DIRECTOR OF PLAYER PERSONNEL (Physician/DIRECTOR OF PLAYER PERSONNEL ) ) Arrival Mode Wheelchair Wheelchair Transfer Assistance Manual Manual Transfer Assist (Other) x2 Patient Identification Verified (Name & Yes Yes ) Patient Requires Transmission-Based No No Precautions Height and Weight Body Mass Index (BMI) 16.9 16.9 BMI Classification Underweight Underweight Vital Signs Temperature (97.8 F-99.1 F) 97.4 F L 97 F L Temperature Source Temporal Temporal Pulse Rate (60-100) 78 88 Pulse Location Monitor Monitor Respiratory Rate (12-18) 18 18 Respiratory rate source Observation Observation Blood Pressure (90/60-120/80) 126/70 H 130/70 H Blood Pressure Mean (mm Hg) 88 90 Source Monitor Monitor Position Semi-Fowlers Blood Pressure Location Left Arm History Since Last Visit- (Skip if this is Patient's initial visit) Have you changed medications since your No No last visit? Any new allergies or adverse reactions No No Had a fall/change in ADL's that may No No increase risk of falls Signs or symptoms of abuse and/or No No neglect since last visit Have you been in the hospital since your No No last visit? Has dressing in place as prescribed Yes Has compression in place as prescribed No N/A Has offloadiing in place as prescribed Yes Yes Experienced any changes in pain level or No No management Pain Scale: 0-10 Numeric Is Patient Pain Free? Yes Yes WC - Nurse 1 - General Ulcer Measurement Start: 07/06/24 15:10 Freq: Status: Active Protocol: Activity Type Activity Date Activity User E-sign Co-sign Detail Recorded Client Recorded Date Recorded By Document 07/06/24 15:12 DL [id number] 07/06/24 15:28 DL Document 07/13/24 08:38 RB [id number] 07/13/24 08:44 RB 07/06/24 07/13/24 15:12 08:38 Wound Center Nurse 1 #16 L Buttocks -Combined with other wound No -Current Size (cm) - Length 1.5 1.8 -Current Size (cm) - Width 1.7 1 -Current Size (cm) - Depth 0.1 0.1 -Total Square Cm 2.55 1.8 -Photo Taken Yes -Tunneling No -Undermining/Tunneling No -Circular Undermining No -Exudate Amt Medium Medium -Exudate Type Sanguineous Serosanguineous -Wound Margin Distinct, Distinct, Outline Outline Attached Attached -Granulation Amt None Present (0 %) -Granulation Quality Bison -Slough/Fibrin Yes -Necrosis Amt Large (67-100%) Medium (34-66%) -Necrotic Tissue Type Adherent Slough Adherent Slough -Structure Exposed N/A N/A -Texture (Leyla-wound Skin Appearance) Scarring Assessed, Scarring -Moisture (Leyla-wound Skin Appearance) No Abnormality Assessed -Color (Leyla-wound Skin Appearance) No Abnormality Assessed -Temperature (Leyla-wound Skin No Abnormality No Abnormality Appearance) (Pt Warm) (Pt Warm) -Tenderness on Palpation (Leyla-wound No No Skin Appearance) -Ulcer Cleansing Soap and Water Wound Cleanser -Foul Odor after Cleansing No No -Anesthetic Used 5% Lidocaine Gel #15- L HALLUX -Combined with other wound No -Current Size (cm) - Length 0.8 0.7 -Current Size (cm) - Width 0.6 0.4 -Current Size (cm) - Depth 0.1 0.1 -Total Square Cm 0.48 0.28 -Photo Taken Yes -Tunneling No -Undermining/Tunneling No -Circular Undermining No -Exudate Amt Small Medium -Exudate Type Serosanguineous -Wound Margin Distinct, Distinct, Outline Outline Attached Attached -Granulation Amt Small (1-33%) Medium (34-66%) -Granulation Quality Bison Bison -Slough/Fibrin Yes -Necrosis Amt Small (1-33%) Medium (34-66%) -Necrotic Tissue Type Adherent Slough Adherent Slough -Structure Exposed N/A N/A -Texture (Leyla-wound Skin Appearance) Scarring Assessed, Scarring -Moisture (Leyla-wound Skin Appearance) No Abnormality Assessed -Color (Leyla-wound Skin Appearance) No Abnormality Assessed -Temperature (Leyla-wound Skin No Abnormality No Abnormality Appearance) (Pt Warm) (Pt Warm) -Tenderness on Palpation (Leyla-wound No No Skin Appearance) -Ulcer Cleansing Soap and Water Wound Cleanser -Foul Odor after Cleansing No No -Anesthetic Used 5% Lidocaine Gel #14 Right Buttock -Combined with other wound No -Current Size (cm) - Length 3.5 4.9 -Current Size (cm) - Width 5.1 2.5 -Current Size (cm) - Depth 2.2 2.2 -Total Square Cm 17.85 12.25 -Photo Taken Yes -Tunneling Yes -Tunneling Position (O'clock) 12 -Tunneling Distance (cm) 4.6 -Undermining/Tunneling No -Circular Undermining No -Exudate Amt Medium Medium -Exudate Type Serosanguineous Serosanguineous -Wound Margin Distinct, Distinct, Outline Outline Attached Attached -Granulation Amt Large (67-100%) -Granulation Quality Bison Bison -Slough/Fibrin Yes -Necrosis Amt Small (1-33%) Medium (34-66%) -Necrotic Tissue Type Adherent Slough Adherent Slough -Structure Exposed N/A N/A -Texture (Leyla-wound Skin Appearance) Scarring Assessed, Scarring -Moisture (Leyla-wound Skin Appearance) No Abnormality Assessed -Color (Leyla-wound Skin Appearance) No Abnormality Assessed -Temperature (Leyla-wound Skin No Abnormality No Abnormality Appearance) (Pt Warm) (Pt Warm) -Tenderness on Palpation (Leyla-wound No No Skin Appearance) -Ulcer Cleansing Soap and Water Wound Cleanser -Foul Odor after Cleansing No No -Anesthetic Used 5% Lidocaine Gel WC - Nurse 2 - General Ulcer CM Notes Start: 07/06/24 15:10 Freq: Status: Active Protocol: Activity Type Activity Date Activity User E-sign Co-sign Detail Recorded Client Recorded Date Recorded By Document 07/06/24 15:47 [id number] 07/06/24 15:55 Document 07/13/24 08:49 [facility] [id number] 07/13/24 09:15 [facility] 07/06/24 07/13/24 15:47 08:49 Wound Center Nurse 2 #17- R ISCHIUM -Time 09:06 -Correct Patient Yes -Correct Side, Site, Position Yes -Correct Procedure Yes -Procedure Performed Yes -Type of Procedure Debridement -Clinical Debridement Subcutaneous -Tissue Removed Subcutaneous -Post Debridement (cm) - Length 0.5 -Post Debridement (cm) - Width 0.5 -Post Debridement (cm) - Depth 0.1 -Total Square (Post) (cm) 0.25 -Area of Debridement (cm) - Length 0.5 -Area of Debridement (cm) - Width 0.5 -Total Square (Area) (cm) 0.25 -Tunneling No -Undermining/Tunneling No -Circular Undermining No -Wound/Ulcer Outcome Not Healed -Ulcer Cleansing Rinsed/ Irrigated with Saline -Foul Odor after Cleansing No -Bioengineered Tissue No -Bleeding Controlled with Pressure -Treatment Response Procedure Tolerated Well -Debridement - Subq, 1st 20sq cm No #16 L Buttocks -Time 15:48 09:06 -Correct Patient Yes Yes -Correct Side, Site, Position Yes Yes -Correct Procedure Yes Yes -Procedure Performed Yes Yes -Type of Procedure Debridement Debridement -Clinical Debridement Subcutaneous Subcutaneous -Tissue Removed Subcutaneous Subcutaneous -Post Debridement (cm) - Length 2.0 2 -Post Debridement (cm) - Width 1.8 2 -Post Debridement (cm) - Depth 0.2 0.1 -Total Square (Post) (cm) 3.60 4 -Area of Debridement (cm) - Length 2.0 2 -Area of Debridement (cm) - Width 1.8 2 -Total Square (Area) (cm) 3.60 4 -Tunneling No No -Undermining/Tunneling No No -Circular Undermining No No -Wound/Ulcer Outcome Not Healed Not Healed -Ulcer Cleansing Rinsed/ Rinsed/ Irrigated with Irrigated with Saline Saline -Foul Odor after Cleansing No No -Bioengineered Tissue No No -Bleeding Controlled with Pressure Pressure -Treatment Response Procedure Procedure Tolerated Well Tolerated Well -Offloading No -Pressure Reduction Wheelchair cushion, Specialty bed -Debridement - Subq, 1st 20sq cm Yes No #15- L HALLUX -Time 15:53 09:10 -Correct Patient Yes Yes -Correct Side, Site, Position Yes Yes -Correct Procedure Yes Yes -Procedure Performed Yes Yes -Type of Procedure Debridement Debridement -Clinical Debridement Subcutaneous Subcutaneous -Tissue Removed Subcutaneous Subcutaneous -Post Debridement (cm) - Length 1.2 0.3 -Post Debridement (cm) - Width 0.6 0.3 -Post Debridement (cm) - Depth 0.1 0.1 -Total Square (Post) (cm) 0.72 0.09 -Area of Debridement (cm) - Length 1.2 0.3 -Area of Debridement (cm) - Width 0.6 0.3 -Total Square (Area) (cm) 0.72 0.09 -Tunneling No No -Undermining/Tunneling No No -Circular Undermining No No -Wound/Ulcer Outcome Not Healed Not Healed -Ulcer Cleansing Rinsed/ Rinsed/ Irrigated with Irrigated with Saline Saline -Foul Odor after Cleansing No No -Bioengineered Tissue No No -Bleeding Controlled with Pressure Pressure -Treatment Response Procedure Procedure Tolerated Well Tolerated Well -Offloading No -Debridement - Subq, 1st 20sq cm No Yes #14 Right Buttock -Time 15:48 08:56 -Correct Patient Yes Yes -Correct Side, Site, Position Yes Yes -Correct Procedure Yes Yes -Procedure Performed Yes Yes -Type of Procedure Debridement Debridement -Clinical Debridement Muscle / Fascia Muscle / Fascia -Tissue Removed Muscle,Fascia Muscle,Fascia -Post Debridement (cm) - Length 6.1 3 -Post Debridement (cm) - Width 3 2.8 -Post Debridement (cm) - Depth 2.1 1.7 -Total Square (Post) (cm) 18.3 8.4 -Area of Debridement (cm) - Length 6.1 3 -Area of Debridement (cm) - Width 3 2.8 -Total Square (Area) (cm) 18.3 8.4 -Tunneling No Yes -Tunneling Position (O'clock) 12 -Tunneling Distance (cm) 3.6 -Undermining/Tunneling Yes No -Undermining/Tunneling Starts (O'clock 12 ) -Maximum Distance (cm) 4.2 -Circular Undermining No No -Wound/Ulcer Outcome Not Healed Not Healed -Ulcer Cleansing Rinsed/ Rinsed/ Irrigated with Irrigated with Saline Saline -Foul Odor after Cleansing No No -Bioengineered Tissue No No -Bleeding Controlled with Pressure Pressure -Treatment Response Procedure Procedure Tolerated Well Tolerated Well -Offloading No -Pressure Reduction Wheelchair cushion, Specialty bed -Debridement - Muscle / Fascia, 1st Yes Yes 20sq cm Pain Scale: 0-10 Numeric Is Patient Pain Free? Yes Yes WC - Nurse 3 - General Ulcer D/C NN Start: 07/06/24 15:10 Freq: Status: Active Protocol: Activity Type Activity Date Activity User E-sign Co-sign Detail Recorded Client Recorded Date Recorded By Document 07/06/24 16:05 DL [id number] 07/06/24 16:10 DL Document 07/13/24 09:58 RB [id number] 07/13/24 10:03 RB 07/06/24 07/13/24 16:05 09:58 Wound Care Center Nurse 3 #17- R ISCHIUM -Negative Pressure Wound Therapy Continue -Pieces of White Foam Inserted 1 -Pieces of Black Foam Inserted 1 -NPWT Application Charge NPWT & Debridement (nc ) -Foam Supply Charges White Foam -White Foam, Small 1 -Setting (mmHg) 150 #16 L Buttocks -Ulcer Cleansing Soap and Water Rinsed/ Irrigated with Saline -Foul Odor after Cleansing No -Primary Dressing Applied Fibracol Plus Aquacel AG 4x4, 4x4,Silicone Silicone Border Border Foam 4x4 Foam 4x4 -Aquacel AG 4x4 1 -Fibracol Plus 4x4 1 -Silicone Border Foam 4x4 1 1 #15- L HALLUX -Ulcer Cleansing Soap and Water -Foul Odor after Cleansing No -Primary Dressing Applied Silicone Border Fibracol Plus Foam 4x4 4x4,Silicone Border Foam 4x4 -Fibracol Plus 4x4 1 -Silicone Border Foam 4x4 1 1 #14 Right Buttock -Ulcer Cleansing Soap and Water Rinsed/ Irrigated with Saline -Negative Pressure Wound Therapy Continue -NPWT Application Charge NPWT & Debridement (nc ) -Setting (mmHg) 150 -Negative Pressure is Continuous -Regranex (If Applicable) Continue -Primary Dressing Applied Silicone Border Foam 4x4 -Other Dressing FIBRACOL -Silicone Border Foam 4x4 1 Leyla-Wound Care Barrier Treatment Response Procedure Procedure Tolerated Well Tolerated Well Pain Scale: 0-10 Numeric Is Patient Pain Free? Yes Yes WC - Visit Discharge Discharge Condition Stable Stable Ambulatory Status Wheelchair Wheelchair Transportation [facility] Medication Reconcilliation completed & No provided to patient/care provider Clinical Summary of Care Provided Yes Facility Type [facility] Orders Sent Yes Additional Wound Wound debrided: Left ischium Laterality: Left Wound Grade/Stage: Stage II Type of Debridement: Excisional debridement Anesthesia Used: 5% Lidocaine Gel Depth: Down to and including healthy tissue and in the subcutaneous layer Percentage of wound debrided: 100 Instrument Used: 5mm curette Tissue Removed: Slough and fibrin Severity: Fat Layer Exposed Amount of bleeding with debridement: Mild Bleeding Controlled with: Compression and gauze Additional Wound Wound debrided: Left great toe Hallux Laterality: Left Wound Grade/Stage: Decubitus ulcer left toe Type of Debridement: Excisional debridement Anesthesia Used: 5% Lidocaine Gel Depth: Down to and including healthy tissue Percentage of wound debrided: 100 Instrument Used: 3mm curette Tissue Removed: Fibrin Severity: Limited To Skin Breakdown Amount of bleeding with debridement: Mild Bleeding Controlled with: Compression and gauze Patient tolerated procedure: Patient tolerated procedure well Additional Wound Wound debrided: Right ischium ulcer from drape of wound VAC Type of Debridement: Excisional debridement Anesthesia Used: 5% Lidocaine Gel Depth: Down to and including healthy tissue Percentage of wound debrided: 100 Instrument Used: 5mm curette Tissue Removed: Fibrin Severity: Fat Layer Exposed Amount of bleeding with debridement: Mild Bleeding Controlled with: Compression and gauze Assessment/Plan Assessment/Plan (1) Decubitus ulcer of sacral region, stage 2: CODE(S): L89.152 - Pressure ulcer of sacral region, stage 2 PLAN: Wound resolved and patient is to just pad and protect (2) Decubitus ulcer of right buttock, stage 4: CODE(S): L89.314 - Pressure ulcer of right buttock, stage 4 (3) Decubitus ulcer of toe, stage 2: CODE(S): L89.892 - Pressure ulcer of other site, stage 2 QUALIFIERS: Laterality: left Qualified Code(s): L89.892 - Pressure ulcer of other site, stage 2 PLAN: Wash with antibacterial soap and water pat dry apply Fibracol Adaptic and foam dressing over left great toe follow-up in 1 week and R ischium to be changed along with wound VAC. (4) Decubitus ulcer of left buttock, stage 2: CODE(S): L89.322 - Pressure ulcer of left buttock, stage 2 PLAN: Wash with soap and water at the time of the dressing change. Apply Aquacel silver and Adaptic cover with [place] SAP daily. (5) Chronic anemia: CODE(S): D64.9 - Anemia, unspecified PLAN: Continue ferrous sulfate 325 mg to twice a day with stool softeners B12 injections 1000 mcg q. weekly (6) Malnutrition: CODE(S): E46 - Unspecified protein-calorie malnutrition QUALIFIERS: Malnutrition type: protein-calorie malnutrition Protein-calorie malnutrition severity: moderate Qualified Code(s): E44.0 - Moderate protein-calorie malnutrition PLAN: Continue the Leeroy daily she needs 60 g of protein a day (7) Wound infection: CODE(S): T14.8XXA - Other injury of unspecified body region, initial encounter; L08.9 - Local infection of the skin and subcutaneous tissue, unspecified PLAN: Patient finished with ciprofloxacin 500 mg twice a day for 14 days Anaerobes came back positive we will start her on metronidazole 250 mg 3 times a day for 14 days and she is finishing this
--- NOTE | 2024-07-14 09:40 | WC ---
PHOTO 07/13/24 LEFT HALLUX
--- NOTE | 2024-07-14 09:49 | WC ---
PHOTO 07/13/24
[2024-07-18 15:29] VITALS: BP 143/78; RESP 16; TEMP 36.7; BMI 16.9
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
[2024-07-27 08:25] VITALS: BP 149/76; PULSE 74; RESP 16; TEMP 36.4; BMI 16.9
--- NOTE | 2024-07-27 09:50 | PCM.WC.PN ---
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 Patient underwent treatment for colitis as an inpatient in March 2024 and developed a right ischial pressure ulcer. It was debrided twice at [facility]. She has been following for wound care with a nurse practitioner in the wound care center, who referred her to me for second opinion to see if she needs surgery. Patient lives at home in an apartment usually by herself. She does not have a pressure offloading bed. She is quite high functioning; however, she is currently in a nursing facility for wound care ever since the recent hospital admission. 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 She has an adult daughter in [place] and an adult daughter here in [place] who are both very involved and supportive. Progress of Wound: Patient was seen by Dr. Anders a week ago and he agreed with her to be able to go home and get home health care to help her with her wound. He did not feel that she needed a flap done and that she was healing well with the wound VAC. Patient is still taking her Leeroy's twice a day and she continues to heal properly. There is no sign of infections she is having some skin issues with allergy to the drape her skin is very erythematous but no skin breakdown. Subjective Subjective Patient is agreeable to plan she showed us her new it appears to be an overlay mattress for her bed and we said now she needs a low air so she is going to send that back. Objective Data Objective Data Today the wound measurements were smaller and she has no tunneling at 12 noon anymore. We applied her first #1 epi she was approved for to the outside and up and side. Therefore we will stop having her wound VAC changed on this Thursday but change it to August 01 to have it changed again unless her suction is lost. Directions will be sent to home health. The parameters for suction will be down from 150 down to 125 also. Her left ischium is improving at smaller will continue using the Aquacel Ag with foam dressing over top her left helix appears to be healed again with the thin skin covering but is very fragile and we will pad it with a foam dressing. She has also developed an area near her anus that we will use sure prep on since no dressing can be applied there. It looks more like a shearing Vital Signs: Vital Signs Temp Pulse Resp BP O2 Del Method 97.6 F L 74 16 149/76 H Room Air 07/27/24 08:25 07/27/24 08:25 07/27/24 08:25 07/27/24 08:25 07/27/24 08:25 Oxygen Delivery Method Room Air Weight: 89 lb 6.4 oz Body Mass Index (BMI) 16.9 Lab / Micro Data Attestation: I reviewed the patient's lab results. Lab results narrative: Still her last prealbumin was very good and the second 1 was never done for what ever reason so we will continue to try to get that ordered. All other labs looked good no sign of anemia. Physical Exam Const oriented x3 General Appearance: cooperative Orientation / Consciousness: oriented to person, oriented to place and oriented to time Exam Limitations: no limitations Nutritional Appearance: cachectic, underweight and thin HEENT normocephalic Head and Scalp: normal to inspection External Ear: external ears normal Eyes PERRL General Eye: normal appearance of both eyes Neck full ROM General: normal visual inspection Resp normal respiratory effort Effort and Inspection: able to speak in complete sentences Auscultation: clear to auscultation bilaterally Cardio regular rate and regular rhythm Palpation: normal PMI Rate: regular rate Rhythm: regular rhythm GI Rectal Exam: visual inspection abnormal, fistula and other Other Details: Open wound left buttocks and perirectal may be fistula going on. Back/Spine Back/Spine Narrative: Paralysis from waist down Cervical Spine: cervical ROM normal Pelvis: buttocks abnormal right and other soft tissue findings Wound on her coccyx area Skin no rashes or lesions noted Skin Narrative: Open wounds on left buttocks with positive depth and infection possible sepsis sacral area open area nonhealing and perirectal area possibly a fistula. Wounds: wounds noted Wound Narrative: Open wound on coccyx stage II Right buttocks wound stage IV Neuro oriented x3 Psych Appearance: grossly normal Attitude: calm Activity / Motor Behavior: appropriate eye contact Speech: normal speech Mood & Affect: euthymic mood Thought Process: normal thought process Thought Content: normal thought content Attention / Concentration: attention grossly intact Memory / Cognition: memory grossly intact Insight: insight good Judgement: judgement good Debridement Note Debridement Note Wound debrided: #14 Right buttocks decubitus ulcer Laterality: Right Wound Grade/Stage: Stage IV Type of Debridement: Excisional debridement Anesthesia Used: 5% Lidocaine Gel Depth: in the subcutaneous layer and to muscle Percentage of wound debrided: 100 Instrument Used: 5mm curette Tissue Removed: Fibrin and there is no tunneling at 12 noon Severity: Fat Layer Exposed (To the muscles) Amount of bleeding with debridement: Mild Bleeding Controlled with: Compression and gauze Patient tolerated procedure: Patient tolerated procedure well Post-Debridement Measurements and Additional Note: Post-Debridement Measurements/Treatment - Nurse 1 - General Ulcer Assessment Start: 07/06/24 15:10 Freq: Status: Active Protocol: JOSEPHINE Activity Type Activity Date Activity User E-sign Co-sign Detail Recorded Client Recorded Date Recorded By Document 07/06/24 15:12 DL [id number] 07/06/24 15:28 DL Document 07/13/24 08:38 RB [id number] 07/13/24 08:44 RB Document 07/18/24 15:29 KW [id number] 07/18/24 15:40 KW Document 07/27/24 08:25 DS [id number] 07/27/24 08:27 DS 07/06/24 07/13/24 07/18/24 15:12 08:38 15:29 - Today's Visit Information Type of service Follow-up Visit Follow-up Visit Follow-up Visit (Physician/REHABILITATION CASEWORKER (Physician/REHABILITATION CASEWORKER (Physician/REHABILITATION CASEWORKER ) ) ) Arrival Mode Wheelchair Wheelchair Wheelchair Transfer Assistance Manual Manual Transfer Assist (Other) x2 Patient Identification Verified (Name & Yes Yes Yes ) Patient Requires Transmission-Based No No Precautions Safety Precautions Height and Weight Body Mass Index (BMI) 16.9 16.9 16.9 BMI Classification Underweight Underweight Underweight Vital Signs Temperature (97.8 F-99.1 F) 97.4 F L 97 F L 98.0 F Temperature Source Temporal Temporal Temporal Pulse Rate (60-100) 78 88 Pulse Location Monitor Monitor Monitor Respiratory Rate (12-18) 18 18 16 Respiratory rate source Observation Observation Observation Oxygen Delivery Method Room Air Blood Pressure (90/60-120/80) 126/70 H 130/70 H 143/78 H Blood Pressure Mean (mm Hg) 88 90 99 Source Monitor Monitor Monitor Position Semi-Fowlers Sitting Blood Pressure Location Left Arm Left Arm History Since Last Visit- (Skip if this is Patient's initial visit) Have you changed medications since your No No No last visit? Any new allergies or adverse reactions No No No Had a fall/change in ADL's that may No No No increase risk of falls Signs or symptoms of abuse and/or No No No neglect since last visit Have you been in the hospital since your No No No last visit? Has dressing in place as prescribed Yes Yes Has compression in place as prescribed No N/A N/A Has offloadiing in place as prescribed Yes Yes N/A Experienced any changes in pain level or No No No management Left Footwear Regular Shoe Right Footwear Regular Shoe Pain Scale: 0-10 Numeric Is Patient Pain Free? Yes Yes Yes FROM WAIST DOWN TO FEET -Description -Intensity -Duration (hours) -Pain Behavior -Alleviating Factors/Interventions 07/27/24 08:25 WC - Today's Visit Information Type of service Follow-up Visit (Physician/REHABILITATION CASEWORKER ) Arrival Mode Wheelchair Transfer Assistance Transfer Assist (Other) Patient Identification Verified (Name & Yes ) Patient Requires Transmission-Based Precautions Safety Precautions Fall Prevention Height and Weight Body Mass Index (BMI) 16.9 BMI Classification Underweight Vital Signs Temperature (97.8 F-99.1 F) 97.6 F L Temperature Source Temporal Pulse Rate (60-100) 74 Pulse Location Monitor Respiratory Rate (12-18) 16 Respiratory rate source Observation Oxygen Delivery Method Room Air Blood Pressure (90/60-120/80) 149/76 H Blood Pressure Mean (mm Hg) 100 Source Monitor Position Sitting Blood Pressure Location Left Arm History Since Last Visit- (Skip if this is Patient's initial visit) Have you changed medications since your No last visit? Any new allergies or adverse reactions No Had a fall/change in ADL's that may No increase risk of falls Signs or symptoms of abuse and/or No neglect since last visit Have you been in the hospital since your No last visit? Has dressing in place as prescribed Yes Has compression in place as prescribed N/A Has offloadiing in place as prescribed Yes Experienced any changes in pain level or No management Left Footwear Removable Cast Walker/Walking Boot Right Footwear Surgical Shoe with pressure relief insole Pain Scale: 0-10 Numeric Is Patient Pain Free? No FROM WAIST DOWN TO FEET -Description Aching -Intensity 7 -Duration (hours) Chronic -Pain Behavior No Change in Behavior -Alleviating Factors/Interventions Will continue to monitor, Emotional Support WC - Nurse 1 - General Ulcer Measurement Start: 07/06/24 15:10 Freq: Status: Active Protocol: Activity Type Activity Date Activity User E-sign Co-sign Detail Recorded Client Recorded Date Recorded By Document 07/06/24 15:12 DL [id number] 07/06/24 15:28 DL Document 07/13/24 08:38 RB [id number] 07/13/24 08:44 RB Document 07/18/24 15:29 KW [id number] 07/18/24 15:40 KW Document 07/27/24 08:27 DS [id number] 07/27/24 08:44 DS 07/06/24 07/13/24 07/18/24 15:12 08:38 15:29 Wound Center Nurse 1 #17- L. Ischium -Current Size (cm) - Length -Current Size (cm) - Width -Current Size (cm) - Depth -Total Square Cm -Photo Taken -Exudate Amt -Exudate Type -Wound Margin -Granulation Amt -Granulation Quality -Necrosis Amt -Necrotic Tissue Type -Structure Exposed -Texture (Leyla-wound Skin Appearance) -Color (Leyla-wound Skin Appearance) -Temperature (Leyla-wound Skin Appearance) -Tenderness on Palpation (Leyla-wound Skin Appearance) -Ulcer Cleansing -Foul Odor after Cleansing -Anesthetic Used *#16 R Buttocks- near anus -Combined with other wound No -Current Size (cm) - Length 1.5 1.8 -Current Size (cm) - Width 1.7 1 -Current Size (cm) - Depth 0.1 0.1 -Total Square Cm 2.55 1.8 -Photo Taken Yes -Tunneling No -Undermining/Tunneling No -Undermining/Tunneling Starts (O'clock ) -Undermining/Tunneling Ends (O'clock) -Maximum Distance (cm) -Circular Undermining No -Exudate Amt Medium Medium -Exudate Type Sanguineous Serosanguineous -Wound Margin Distinct, Distinct, Outline Outline Attached Attached -Granulation Amt None Present (0 %) -Granulation Quality [place] -Slough/Fibrin Yes -Necrosis Amt Large (67-100%) Medium (34-66%) -Necrotic Tissue Type Adherent Slough Adherent Slough -Structure Exposed N/A N/A -Texture (Leyla-wound Skin Appearance) Scarring Assessed, Scarring -Moisture (Leyla-wound Skin Appearance) No Abnormality Assessed -Color (Leyla-wound Skin Appearance) No Abnormality Assessed -Temperature (Leyla-wound Skin No Abnormality No Abnormality Appearance) (Pt Warm) (Pt Warm) -Tenderness on Palpation (Leyla-wound No No Skin Appearance) -Ulcer Cleansing Soap and Water Wound Cleanser -Foul Odor after Cleansing No No -Anesthetic Used 5% Lidocaine Gel #15- L HALLUX -Combined with other wound No -Current Size (cm) - Length 0.8 0.7 -Current Size (cm) - Width 0.6 0.4 -Current Size (cm) - Depth 0.1 0.1 -Total Square Cm 0.48 0.28 -Photo Taken Yes -Tunneling No -Undermining/Tunneling No -Circular Undermining No -Exudate Amt Small Medium -Exudate Type Serosanguineous -Wound Margin Distinct, Distinct, Outline Outline Attached Attached -Granulation Amt Small (1-33%) Medium (34-66%) -Granulation Quality [place] -Slough/Fibrin Yes -Necrosis Amt Small (1-33%) Medium (34-66%) -Necrotic Tissue Type Adherent Slough Adherent Slough -Structure Exposed N/A N/A -Texture (Leyla-wound Skin Appearance) Scarring Assessed, Scarring -Moisture (Leyla-wound Skin Appearance) No Abnormality Assessed -Color (Leyla-wound Skin Appearance) No Abnormality Assessed -Temperature (Leyla-wound Skin No Abnormality No Abnormality Appearance) (Pt Warm) (Pt Warm) -Tenderness on Palpation (Leyla-wound No No Skin Appearance) -Ulcer Cleansing Soap and Water Wound Cleanser -Foul Odor after Cleansing No No -Anesthetic Used 5% Lidocaine Gel #14 Right Buttock -Combined with other wound No -Current Size (cm) - Length 3.5 4.9 4.9 -Current Size (cm) - Width 5.1 2.5 2.7 -Current Size (cm) - Depth 2.2 2.2 1 -Total Square Cm 17.85 12.25 13.23 -Date of Last Picture (Recall this 07/18/24 field) -Photo Taken Yes -Tunneling Yes -Tunneling Position (O'clock) 12 -Tunneling Distance (cm) 4.6 -Undermining/Tunneling No -Circular Undermining No -Exudate Amt Medium Medium Medium -Exudate Type Serosanguineous Serosanguineous Serosanguineous -Wound Margin Distinct, Distinct, Distinct, Outline Outline Outline Attached Attached Attached -Granulation Amt Large (67-100%) Large (67-100%) -Granulation Quality [place],Red -Slough/Fibrin Yes -Necrosis Amt Small (1-33%) Medium (34-66%) -Necrotic Tissue Type Adherent Slough Adherent Slough -Structure Exposed N/A N/A -Texture (Leyla-wound Skin Appearance) Scarring Assessed, Assessed Scarring -Moisture (Leyla-wound Skin Appearance) No Abnormality Assessed Assessed -Color (Leyla-wound Skin Appearance) No Abnormality Assessed Assessed -Temperature (Leyla-wound Skin No Abnormality No Abnormality No Abnormality Appearance) (Pt Warm) (Pt Warm) (Pt Warm) -Tenderness on Palpation (Leyla-wound No No No Skin Appearance) -Ulcer Cleansing Soap and Water Wound Cleanser Rinsed/ Irrigated with Saline -Foul Odor after Cleansing No No No -Anesthetic Used 5% Lidocaine Gel 07/27/24 08:27 Wound Center Nurse 1 #17- L. Ischium -Current Size (cm) - Length 1.5 -Current Size (cm) - Width 1.6 -Current Size (cm) - Depth 0.1 -Total Square Cm 2.40 -Photo Taken Yes -Exudate Amt Medium -Exudate Type Serosanguineous -Wound Margin Distinct, Outline Attached -Granulation Amt Small (1-33%) -Granulation Quality [place] -Necrosis Amt Large (67-100%) -Necrotic Tissue Type Adherent Slough -Structure Exposed N/A -Texture (Leyla-wound Skin Appearance) Scarring -Color (Leyla-wound Skin Appearance) No Abnormality -Temperature (Leyla-wound Skin No Abnormality Appearance) (Pt Warm) -Tenderness on Palpation (Leyla-wound No Skin Appearance) -Ulcer Cleansing Soap and Water -Foul Odor after Cleansing No -Anesthetic Used 5% Lidocaine Gel *#16 R Buttocks- near anus -Combined with other wound -Current Size (cm) - Length 4.7 -Current Size (cm) - Width 3.2 -Current Size (cm) - Depth 0.7 -Total Square Cm 15.04 -Photo Taken Yes -Tunneling -Undermining/Tunneling -Undermining/Tunneling Starts (O'clock 1 ) -Undermining/Tunneling Ends (O'clock) 2 -Maximum Distance (cm) 0.4 -Circular Undermining -Exudate Amt Medium -Exudate Type Serosanguineous -Wound Margin Distinct, Outline Attached -Granulation Amt -Granulation Quality Hyper- granulation -Slough/Fibrin No -Necrosis Amt None Present (0 %) -Necrotic Tissue Type -Structure Exposed N/A -Texture (Leyla-wound Skin Appearance) Scarring -Moisture (Leyla-wound Skin Appearance) No Abnormality -Color (Lyela-wound Skin Appearance) No Abnormality -Temperature (Leyla-wound Skin No Abnormality Appearance) (Pt Warm) -Tenderness on Palpation (Leyla-wound No Skin Appearance) -Ulcer Cleansing Soap and Water -Foul Odor after Cleansing No -Anesthetic Used 4% Lidocaine Solution #15- L HALLUX -Combined with other wound -Current Size (cm) - Length 0.8 -Current Size (cm) - Width 1 -Current Size (cm) - Depth 0.1 -Total Square Cm 0.8 -Photo Taken Yes -Tunneling -Undermining/Tunneling -Circular Undermining -Exudate Amt Small -Exudate Type -Wound Margin Distinct, Outline Attached -Granulation Amt Small (1-33%) -Granulation Quality [place] -Slough/Fibrin -Necrosis Amt Small (1-33%) -Necrotic Tissue Type Adherent Slough -Structure Exposed N/A -Texture (Leyla-wound Skin Appearance) Scarring -Moisture (Leyla-wound Skin Appearance) No Abnormality -Color (Leyla-wound Skin Appearance) No Abnormality -Temperature (Leyla-wound Skin No Abnormality Appearance) (Pt Warm) -Tenderness on Palpation (Leyla-wound No Skin Appearance) -Ulcer Cleansing Soap and Water -Foul Odor after Cleansing No -Anesthetic Used 5% Lidocaine Gel #14 Right Buttock -Combined with other wound -Current Size (cm) - Length -Current Size (cm) - Width -Current Size (cm) - Depth -Total Square Cm -Date of Last Picture (Recall this field) -Photo Taken -Tunneling -Tunneling Position (O'clock) -Tunneling Distance (cm) -Undermining/Tunneling -Circular Undermining -Exudate Amt -Exudate Type -Wound Margin -Granulation Amt -Granulation Quality -Slough/Fibrin -Necrosis Amt -Necrotic Tissue Type -Structure Exposed -Texture (Leyla-wound Skin Appearance) -Moisture (Leyla-wound Skin Appearance) -Color (Leyla-wound Skin Appearance) -Temperature (Leyla-wound Skin Appearance) -Tenderness on Palpation (Leyla-wound Skin Appearance) -Ulcer Cleansing -Foul Odor after Cleansing -Anesthetic Used WC - Nurse 2 - General Ulcer CM Notes Start: 07/06/24 15:10 Freq: Status: Active Protocol: Activity Type Activity Date Activity User E-sign Co-sign Detail Recorded Client Recorded Date Recorded By Document 07/06/24 15:47 [id number] 07/06/24 15:55 Document 07/13/24 08:49 [facility] [id number] 07/13/24 09:15 [facility] Document 07/18/24 15:42 [facility] [id number] 07/18/24 16:12 [facility] Document 07/27/24 08:53 [facility] [id number] 07/27/24 09:20 [facility] 07/06/24 07/13/24 07/18/24 15:47 08:49 15:42 Wound Center Nurse 2 #17- L. Ischium -Time 09:06 -Correct Patient Yes -Correct Side, Site, Position Yes -Correct Procedure Yes -Procedure Performed Yes -Type of Procedure Debridement -Clinical Debridement Subcutaneous -Tissue Removed Subcutaneous -Post Debridement (cm) - Length 0.5 -Post Debridement (cm) - Width 0.5 -Post Debridement (cm) - Depth 0.1 -Total Square (Post) (cm) 0.25 -Area of Debridement (cm) - Length 0.5 -Area of Debridement (cm) - Width 0.5 -Total Square (Area) (cm) 0.25 -Tunneling No -Undermining/Tunneling No -Circular Undermining No -Wound/Ulcer Outcome Not Healed -Ulcer Cleansing Rinsed/ Irrigated with Saline -Foul Odor after Cleansing No -Bioengineered Tissue No -Bleeding Controlled with Pressure -Treatment Response Procedure Tolerated Well -Debridement - Subq, 1st 20sq cm No *#16 R Buttocks- near anus -Time 15:48 09:06 -Correct Patient Yes Yes -Correct Side, Site, Position Yes Yes -Correct Procedure Yes Yes -Procedure Performed Yes Yes -Type of Procedure Debridement Debridement -Clinical Debridement Subcutaneous Subcutaneous -Tissue Removed Subcutaneous Subcutaneous -Post Debridement (cm) - Length 2.0 2 -Post Debridement (cm) - Width 1.8 2 -Post Debridement (cm) - Depth 0.2 0.1 -Total Square (Post) (cm) 3.60 4 -Area of Debridement (cm) - Length 2.0 2 -Area of Debridement (cm) - Width 1.8 2 -Total Square (Area) (cm) 3.60 4 -Tunneling No No -Undermining/Tunneling No No -Circular Undermining No No -Wound/Ulcer Outcome Not Healed Not Healed -Ulcer Cleansing Rinsed/ Rinsed/ Irrigated with Irrigated with Saline Saline -Foul Odor after Cleansing No No -Bioengineered Tissue No No -Bleeding Controlled with Pressure Pressure -Treatment Response Procedure Procedure Tolerated Well Tolerated Well -Offloading No -Pressure Reduction Wheelchair cushion, Specialty bed -Debridement - Subq, 1st 20sq cm Yes No #15- L HALLUX -Time 15:53 09:10 -Correct Patient Yes Yes -Correct Side, Site, Position Yes Yes -Correct Procedure Yes Yes -Procedure Performed Yes Yes -Type of Procedure Debridement Debridement -Clinical Debridement Subcutaneous Subcutaneous -Tissue Removed Subcutaneous Subcutaneous -Post Debridement (cm) - Length 1.2 0.3 -Post Debridement (cm) - Width 0.6 0.3 -Post Debridement (cm) - Depth 0.1 0.1 -Total Square (Post) (cm) 0.72 0.09 -Area of Debridement (cm) - Length 1.2 0.3 -Area of Debridement (cm) - Width 0.6 0.3 -Total Square (Area) (cm) 0.72 0.09 -Tunneling No No -Undermining/Tunneling No No -Circular Undermining No No -Wound/Ulcer Outcome Not Healed Not Healed -Ulcer Cleansing Rinsed/ Rinsed/ Irrigated with Irrigated with Saline Saline -Foul Odor after Cleansing No No -Bioengineered Tissue No No -Bleeding Controlled with Pressure Pressure -Treatment Response Procedure Procedure Tolerated Well Tolerated Well -Offloading No -Debridement - Subq, 1st 20sq cm No Yes #14 Right Buttock -Time 15:48 08:56 15:42 -Correct Patient Yes Yes Yes -Correct Side, Site, Position Yes Yes Yes -Correct Procedure Yes Yes Yes -Procedure Performed Yes Yes Yes -Type of Procedure Debridement Debridement Debridement -Clinical Debridement Muscle / Fascia Muscle / Fascia Muscle / Fascia -Tissue Removed Muscle,Fascia Muscle,Fascia Muscle,Fascia -Post Debridement (cm) - Length 6.1 3 4.9 -Post Debridement (cm) - Width 3 2.8 2.7 -Post Debridement (cm) - Depth 2.1 1.7 1 -Total Square (Post) (cm) 18.3 8.4 13.23 -Area of Debridement (cm) - Length 6.1 3 4.9 -Area of Debridement (cm) - Width 3 2.8 2.7 -Total Square (Area) (cm) 18.3 8.4 13.23 -Tunneling No Yes Yes -Tunneling Position (O'clock) 12 12 -Tunneling Distance (cm) 3.6 2.6 -Undermining/Tunneling Yes No No -Undermining/Tunneling Starts (O'clock 12 ) -Maximum Distance (cm) 4.2 -Circular Undermining No No No -Wound/Ulcer Outcome Not Healed Not Healed Not Healed -Ulcer Cleansing Rinsed/ Rinsed/ Rinsed/ Irrigated with Irrigated with Irrigated with Saline Saline Saline -Foul Odor after Cleansing No No No -Bioengineered Tissue No No No -Type of Bioengineered Tissue -Expiration Date -Product Lot Number -Percent Used -Lot number of Saline Used -Bleeding Controlled with Pressure Pressure Pressure -Treatment Response Procedure Procedure Procedure Tolerated Well Tolerated Well Tolerated Well -Offloading No -Pressure Reduction Wheelchair cushion, Specialty bed -Debridement - Muscle / Fascia, 1st Yes Yes Yes 20sq cm -Apply Skin Sub - 1st 25 sq cm - Legs -Epifix Mesh (per sq cm) Pain Scale: 0-10 Numeric Is Patient Pain Free? Yes Yes Yes 07/27/24 08:53 Wound Center Nurse 2 #17- L. Ischium -Time 09:14 -Correct Patient Yes -Correct Side, Site, Position Yes -Correct Procedure Yes -Procedure Performed Yes -Type of Procedure Debridement -Clinical Debridement Subcutaneous -Tissue Removed Subcutaneous -Post Debridement (cm) - Length 1.7 -Post Debridement (cm) - Width 1.5 -Post Debridement (cm) - Depth 0.1 -Total Square (Post) (cm) 2.55 -Area of Debridement (cm) - Length 1.7 -Area of Debridement (cm) - Width 1.5 -Total Square (Area) (cm) 2.55 -Tunneling No -Undermining/Tunneling No -Circular Undermining No -Wound/Ulcer Outcome Not Healed -Ulcer Cleansing Rinsed/ Irrigated with Saline -Foul Odor after Cleansing No -Bioengineered Tissue No -Bleeding Controlled with Pressure -Treatment Response Procedure Tolerated Well -Debridement - Subq, 1st 20sq cm Yes *#16 R Buttocks- near anus -Time 09:02 -Correct Patient Yes -Correct Side, Site, Position Yes -Correct Procedure Yes -Procedure Performed Yes -Type of Procedure Debridement -Clinical Debridement Subcutaneous -Tissue Removed Subcutaneous -Post Debridement (cm) - Length 0.7 -Post Debridement (cm) - Width 1.2 -Post Debridement (cm) - Depth 0.1 -Total Square (Post) (cm) 0.84 -Area of Debridement (cm) - Length 0.7 -Area of Debridement (cm) - Width 1.2 -Total Square (Area) (cm) 0.84 -Tunneling No -Undermining/Tunneling No -Circular Undermining No -Wound/Ulcer Outcome Not Healed -Ulcer Cleansing Rinsed/ Irrigated with Saline -Foul Odor after Cleansing No -Bioengineered Tissue No -Bleeding Controlled with Pressure -Treatment Response Procedure Tolerated Well -Offloading -Pressure Reduction -Debridement - Subq, 1st 20sq cm No #15- L HALLUX -Time 09:19 -Correct Patient -Correct Side, Site, Position -Correct Procedure -Procedure Performed No -Type of Procedure -Clinical Debridement -Tissue Removed -Post Debridement (cm) - Length 0.1 -Post Debridement (cm) - Width 0.1 -Post Debridement (cm) - Depth 0.1 -Total Square (Post) (cm) 0.01 -Area of Debridement (cm) - Length 0.1 -Area of Debridement (cm) - Width 0.1 -Total Square (Area) (cm) 0.01 -Tunneling No -Undermining/Tunneling No -Circular Undermining No -Wound/Ulcer Outcome -Ulcer Cleansing -Foul Odor after Cleansing -Bioengineered Tissue -Bleeding Controlled with NA -Treatment Response -Offloading -Debridement - Subq, 1st 20sq cm #14 Right Buttock -Time 08:56 -Correct Patient Yes -Correct Side, Site, Position Yes -Correct Procedure Yes -Procedure Performed Yes -Type of Procedure Debridement -Clinical Debridement Muscle / Fascia -Tissue Removed Muscle,Fascia -Post Debridement (cm) - Length 4.5 -Post Debridement (cm) - Width 2 -Post Debridement (cm) - Depth 1.8 -Total Square (Post) (cm) 9.0 -Area of Debridement (cm) - Length 4.5 -Area of Debridement (cm) - Width 2 -Total Square (Area) (cm) 9.0 -Tunneling No -Tunneling Position (O'clock) -Tunneling Distance (cm) -Undermining/Tunneling No -Undermining/Tunneling Starts (O'clock ) -Maximum Distance (cm) -Circular Undermining No -Wound/Ulcer Outcome Not Healed -Ulcer Cleansing Rinsed/ Irrigated with Saline -Foul Odor after Cleansing No -Bioengineered Tissue Yes -Type of Bioengineered Tissue Epifix Mesh -Expiration Date 01/02/29 -Product Lot Number [id number] -Percent Used 100 -Lot number of Saline Used [id number] -Bleeding Controlled with Pressure -Treatment Response Procedure Tolerated Well -Offloading -Pressure Reduction -Debridement - Muscle / Fascia, 1st No 20sq cm -Apply Skin Sub - 1st 25 sq cm - Legs 1 -Epifix Mesh (per sq cm) 11 Pain Scale: 0-10 Numeric Is Patient Pain Free? Yes WC - Nurse 3 - General Ulcer D/C NN Start: 07/06/24 15:10 Freq: Status: Active Protocol: Activity Type Activity Date Activity User E-sign Co-sign Detail Recorded Client Recorded Date Recorded By Document 07/06/24 16:05 DL [id number] 07/06/24 16:10 DL Document 07/13/24 09:58 RB [id number] 07/13/24 10:03 RB Document 07/18/24 16:16 BMF [id number] 07/18/24 16:21 BMF 07/06/24 07/13/24 07/18/24 16:05 09:58 16:16 Wound Care Center Nurse 3 #17- L. Ischium -Ulcer Cleansing Rinsed/ Irrigated with Saline -Foul Odor after Cleansing No -Negative Pressure Wound Therapy Continue -Pieces of White Foam Inserted 1 -Pieces of Black Foam Inserted 1 -NPWT Application Charge NPWT & Debridement (nc ) -Foam Supply Charges White Foam -White Foam, Small 1 -Setting (mmHg) 150 -Primary Dressing Applied Fibracol Plus 4x4,Silicone Border Foam 4x4 -Fibracol Plus 4x4 1 -Silicone Border Foam 4x4 1 *#16 R Buttocks- near anus -Ulcer Cleansing Soap and Water Rinsed/ Irrigated with Saline -Foul Odor after Cleansing No -Primary Dressing Applied Fibracol Plus Aquacel AG 4x4, 4x4,Silicone Silicone Border Border Foam 4x4 Foam 4x4 -Aquacel AG 4x4 1 -Fibracol Plus 4x4 1 -Silicone Border Foam 4x4 1 1 #15- L HALLUX -Ulcer Cleansing Soap and Water -Foul Odor after Cleansing No -Primary Dressing Applied Silicone Border Fibracol Plus Foam 4x4 4x4,Silicone Border Foam 4x4 -Fibracol Plus 4x4 1 -Silicone Border Foam 4x4 1 1 #14 Right Buttock -Ulcer Cleansing Soap and Water Rinsed/ Soap and Water Irrigated with Saline -Foul Odor after Cleansing No -Negative Pressure Wound Therapy Continue Continue -NPWT Application Charge NPWT & NPWT & Debridement (nc Debridement (nc ) ) -Setting (mmHg) 150 -Negative Pressure is Continuous -Regranex (If Applicable) Continue -Primary Dressing Applied Silicone Border Foam 4x4 -Other Dressing FIBRACOL wet to dry today -Primary Dressing Covered/Secured with Dry Gauze, Secured with Tape -Silicone Border Foam 4x4 1 -Wound Comment(s) Pt to resume VAC at [facility]. Orders sent with PT Leyla-Wound Care Barrier Treatment Response Procedure Procedure Procedure Tolerated Well Tolerated Well Tolerated Well Pain Scale: 0-10 Numeric Is Patient Pain Free? Yes Yes Yes WC - Visit Discharge Discharge Condition Stable Stable Stable Ambulatory Status Wheelchair Wheelchair Wheelchair Transportation Private Auto [place] Private Auto Medication Reconcilliation completed & No provided to patient/care provider Clinical Summary of Care Provided Yes Notes: moraima latif dressing today Facility Type [facility] Facility Orders Sent Yes Yes Additional Wound Wound debrided: Left ischium Laterality: Left Wound Grade/Stage: Stage II Type of Debridement: Excisional debridement Anesthesia Used: 5% Lidocaine Gel Depth: Down to and including healthy tissue and in the subcutaneous layer Percentage of wound debrided: 100 Instrument Used: 5mm curette Tissue Removed: Slough and fibrin Severity: Fat Layer Exposed Amount of bleeding with debridement: Mild Bleeding Controlled with: Compression and gauze Additional Wound Wound debrided: Anus Shearing Percentage of wound debrided: 100 Instrument Used: 3mm curette Tissue Removed: Fibrin Severity: Limited To Skin Breakdown Amount of bleeding with debridement: None Bleeding Controlled with: Pressure Patient tolerated procedure: Patient tolerated procedure well Additional Wound Tissue Removed: Fibrin Severity: Fat Layer Exposed Amount of bleeding with debridement: Mild Bleeding Controlled with: Compression and gauze Assessment/Plan Assessment/Plan (1) Decubitus ulcer of sacral region, stage 2: CODE(S): L89.152 - Pressure ulcer of sacral region, stage 2 PLAN: Wound resolved and patient is to just pad and protect (2) Decubitus ulcer of toe, stage 2: CODE(S): L89.892 - Pressure ulcer of other site, stage 2 QUALIFIERS: Laterality: left Qualified Code(s): L89.892 - Pressure ulcer of other site, stage 2 PLAN: Resolved and needs to be padded and protect patient wears a postop shoe on that foot with a sock underneath. (3) Chronic anemia: CODE(S): D64.9 - Anemia, unspecified PLAN: Continue ferrous sulfate 325 mg to twice a day with stool softeners B12 injections 1000 mcg q. weekly Improved immensely she said at normal rate at this time (4) Decubitus ulcer of right buttock, stage 4: CODE(S): L89.314 - Pressure ulcer of right buttock, stage 4 PLAN: Epi #1 was applied to the outside and inside of the decubitus ulcer and patient will have a wound VAC decreased to 125 mm per mercury and only be changed twice weekly and the next time it will be changes on Thursday. Unless there is problems with suction. Follow-up in 1 week Patient is to continue offloading and local using a low air mattress on bed (5) Skin ulcer of left great toe: CODE(S): L97.529 - Non-pressure chronic ulcer of other part of left foot with unspecified severity QUALIFIERS: Non-pressure ulcer stage: limited to breakdown of skin Qualified Code(s): L97.521 - Non-pressure chronic ulcer of other part of left foot limited to breakdown of skin (6) Decubitus ulcer of left ischium, stage 2: CODE(S): L89.322 - Pressure ulcer of left buttock, stage 2 PLAN: Wash area with antibacterial soap and water and apply Aquacel extra moistened with foam dressing. (7) Ulcer of anus: CODE(S): K62.6 - Ulcer of anus and rectum PLAN: Skin-Prep to area 2-3 times a day
--- NOTE | 2024-07-27 15:02 | WC ---
PHOTO 07/27/24 LEFT HALLUX
--- NOTE | 2024-07-27 15:05 | WC ---
PHOTO 07/27/24 RIGHT BUTTOCK
--- NOTE | 2024-07-27 15:07 | WC ---
PHOTO 07/27/24 LEFT BUTTOCK
--- NOTE | 2024-07-28 15:10 | WC ---
Pt and Levy Caraballo nurse, called to notified staff wound vac has a leak and is unable to be patched by pt and will be visited by home health today. Nurse instructed to try to reinforce drape, if unsuccessful please try to not disturb skin sub placed under wound draping. Alert started at noon today,, pt is able to maintain suction by laying flat in bed.
--- NOTE | 2024-07-29 13:51 | WC ---
Reshma, Social Lead Trainer, from [facility] called to notify that pt was ordered a BOB mattress prior to d/c from facility. Sharmin Dewitt delivered the incorrect mattress to home. Reshma was asking if she should proceed to have this corrected or if we should handle it. It was advised that they continue with getting the correct mattress delivered d/t having put the order in and have all the info needed to proceed.
--- NOTE | 2024-08-01 15:23 | WC ---
Rylie from [facility] called to report while doing vac care pt epimesh was removed along with old draping. Nurse reports it was unavoidable that it was not within the wound bed and had shifted and adhered to the draping.
== END 2024-08-01 23:59 | disposition home or self-care (01) ==
LOC: WC 08:30
PROVIDERS: PCP Family Medicine; Referring Provider Family Medicine; Visit Provider Nurse Practitioner
DX: L89.313 Pressure ulcer of right buttock, stage 3 (principal); G82.20 Paraplegia, unspecified; L89.322 Pressure ulcer of left buttock, stage 2; L89.892 Pressure ulcer of other site, stage 2; L89.152 Pressure ulcer of sacral region, stage 2; G37.3 Acute transverse myelitis in demyelinating disease of central nervous system; G89.29 Other chronic pain; D64.9 Anemia, unspecified; K62.6 Ulcer of anus and rectum; Z99.89 Dependence on other enabling machines and devices; L08.9 Local infection of the skin and subcutaneous tissue, unspecified; T14.8XXA Other injury of unspecified body region, initial encounter; E44.0 Moderate protein-calorie malnutrition; Z68.1 Body mass index [BMI] 19.9 or less, adult
CPT/HCPCS: 11042; 11043; 15271; Q4186

== ENCOUNTER 2024-08-31 10:15 | Outpatient (RCR) | payer MEDICARE, OTHER, SELFPAY ==
[2024-08-02 00:45] VITALS: BP 149/76; PULSE 74; RESP 16; TEMP 36.4; BMI 16.9
[2024-08-03 10:50] VITALS: BP 133/65; PULSE 69; RESP 18; TEMP 36; BMI 16.9
--- NOTE | 2024-08-03 11:18 | PCM.WC.PN ---
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 Patient underwent treatment for colitis as an inpatient in March 2024 and developed a right ischial pressure ulcer. It was debrided twice at [facility]. She has been following for wound care with a nurse practitioner in the wound care center, who referred her to me for second opinion to see if she needs surgery. Patient lives at home in an apartment usually by herself. She does not have a pressure offloading bed. She is quite high functioning; however, she is currently in a nursing facility for wound care ever since the recent hospital admission. 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 She has an adult daughter in [place] and an adult daughter here in [place] who are both very involved and supportive. Progress of Wound: Today the right buttocks is the same measurements as it was last week left ischium is smaller and the left helix is still healed and were padding and protecting there is a small sheared area by her anus and that is healed over but were still applying sure prep to it. The wound VAC came off immediately last week and so did her epi fix organ to hold off on the epi fix this week. This was her first week at home and she is having to prepare her own meals so she has to get up into her wheelchair and I think she is knocking it off or loosening up the suction on the wound VAC. Subjective Subjective Patient is wanting the wound VAC removed but I explained he is not about drainage it is about helping with pulling the skin out to heal. We will increase the wound VAC pressure since were not using the EpiFix is in them. The left ischium is flat no depth healing it is measuring about half the size it was last week. Left hallux is all healed up and we are just padding and protecting and so is that area around her anus that were just covering it with sure prep to keep it skin tough. Objective Data Objective Data No sign of infections bleeds easily with debridement measurements are the same on the right buttocks we will continue the wound VAC and increased pressure of 150 we will stop the EpiFix at this time. Continue with other protective treatments for the other areas. And the left ischium we will stop the silver and switch her over to Aquacel extra. Vital Signs: Vital Signs Temp Pulse Resp BP 96.8 F L 69 18 133/65 H 08/03/24 10:50 08/03/24 10:50 08/03/24 10:50 08/03/24 10:50 Weight: 89 lb 6.4 oz Body Mass Index (BMI) 16.9 Lab / Micro Data Attestation: I reviewed the patient's lab results. Physical Exam Const oriented x3 General Appearance: cooperative Orientation / Consciousness: oriented to person, oriented to place and oriented to time Exam Limitations: no limitations Nutritional Appearance: cachectic, underweight and thin HEENT normocephalic Head and Scalp: normal to inspection External Ear: external ears normal Eyes PERRL General Eye: normal appearance of both eyes Neck full ROM General: normal visual inspection Resp normal respiratory effort Effort and Inspection: able to speak in complete sentences Auscultation: clear to auscultation bilaterally Cardio regular rate and regular rhythm Palpation: normal PMI Rate: regular rate Rhythm: regular rhythm GI Rectal Exam: visual inspection abnormal, fistula and other Other Details: Open wound left buttocks and perirectal may be fistula going on. Back/Spine Back/Spine Narrative: Paralysis from waist down Cervical Spine: cervical ROM normal Pelvis: buttocks abnormal right and other soft tissue findings Wound on her coccyx area Skin no rashes or lesions noted Skin Narrative: Open wounds on left buttocks with positive depth and infection possible sepsis sacral area open area nonhealing and perirectal area possibly a fistula. Wounds: wounds noted Wound Narrative: Open wound on coccyx stage II Right buttocks wound stage IV Neuro oriented x3 Psych Appearance: grossly normal Attitude: calm Activity / Motor Behavior: appropriate eye contact Speech: normal speech Mood & Affect: euthymic mood Thought Process: normal thought process Thought Content: normal thought content Attention / Concentration: attention grossly intact Memory / Cognition: memory grossly intact Insight: insight good Judgement: judgement good Debridement Note Debridement Note Wound debrided: Right buttocks Laterality: Right Wound Grade/Stage: Stage IV Type of Debridement: Excisional debridement Anesthesia Used: 5% Lidocaine Gel Depth: in the subcutaneous layer Percentage of wound debrided: 100 Instrument Used: 5mm curette Tissue Removed: Fibrin Severity: Fat Layer Exposed Amount of bleeding with debridement: Mild Bleeding Controlled with: Compression and gauze Patient tolerated procedure: Patient tolerated procedure well Post-Debridement Measurements and Additional Note: Post-Debridement Measurements/Treatment - Nurse 1 - General Ulcer Assessment Start: 08/03/24 10:50 Freq: Status: Active Protocol: JOSEPHINE Activity Type Activity Date Activity User E-sign Co-sign Detail Recorded Client Recorded Date Recorded By Document 08/03/24 10:50 LAURENCE [id number] 08/03/24 10:57 RB 08/03/24 10:50 WC - Today's Visit Information Type of service Follow-up Visit (Physician/AN EMPLOYEE [employer]ONSOR [employer] AND ) Arrival Mode Wheelchair Transfer Assistance Manual Patient Identification Verified (Name & Yes ) Patient Requires Transmission-Based No Precautions Height and Weight Body Mass Index (BMI) 16.9 BMI Classification Underweight Vital Signs Temperature (97.8 F-99.1 F) 96.8 F L Temperature Source Temporal Pulse Rate (60-100) 69 Pulse Location Monitor Respiratory Rate (12-18) 18 Respiratory rate source Observation Blood Pressure (90/60-120/80) 133/65 H Blood Pressure Mean (mm Hg) 87 Source Monitor Position Semi-Fowlers Blood Pressure Location Left Arm History Since Last Visit- (Skip if this is Patient's initial visit) Have you changed medications since your No last visit? Any new allergies or adverse reactions No Had a fall/change in ADL's that may No increase risk of falls Signs or symptoms of abuse and/or No neglect since last visit Have you been in the hospital since your No last visit? Has dressing in place as prescribed Yes Has compression in place as prescribed N/A Has offloadiing in place as prescribed Yes Experienced any changes in pain level or No management Pain Scale: 0-10 Numeric Is Patient Pain Free? Yes - Nurse 1 - General Ulcer Measurement Start: 08/03/24 10:50 Freq: Status: Active Protocol: Activity Type Activity Date Activity User E-sign Co-sign Detail Recorded Client Recorded Date Recorded By Document 08/03/24 10:50 LAURENCE [id number] 08/03/24 10:57 RB 08/03/24 10:50 Wound Center Nurse 1 *#16 R Buttocks- near anus -Combined with other wound No -Current Size (cm) - Length 0.1 -Current Size (cm) - Width 0.1 -Current Size (cm) - Depth 0.1 -Total Square Cm 0.01 -Photo Taken Yes -Tunneling No -Undermining/Tunneling No -Circular Undermining No -Exudate Amt Small -Exudate Type Serosanguineous -Wound Margin Distinct, Outline Attached -Granulation Amt Medium (34-66%) -Granulation Quality [place] -Slough/Fibrin Yes -Necrosis Amt Medium (34-66%) -Necrotic Tissue Type Adherent Slough -Structure Exposed N/A -Texture (Leyla-wound Skin Appearance) Assessed -Moisture (Leyla-wound Skin Appearance) Assessed -Color (Leyla-wound Skin Appearance) Assessed -Temperature (Leyla-wound Skin No Abnormality Appearance) (Pt Warm) -Tenderness on Palpation (Leyla-wound No Skin Appearance) -Ulcer Cleansing Wound Cleanser -Foul Odor after Cleansing No #15- L HALLUX -Combined with other wound No -Current Size (cm) - Length 0.2 -Current Size (cm) - Width 0.2 -Current Size (cm) - Depth 0.1 -Total Square Cm 0.04 -Photo Taken Yes -Tunneling No -Undermining/Tunneling No -Circular Undermining No -Exudate Amt Medium -Exudate Type Serosanguineous -Wound Margin Distinct, Outline Attached -Granulation Amt Medium (34-66%) -Granulation Quality [place] -Slough/Fibrin Yes -Necrosis Amt Small (1-33%) -Necrotic Tissue Type Adherent Slough -Structure Exposed N/A -Texture (Leyla-wound Skin Appearance) Assessed -Moisture (Leyla-wound Skin Appearance) Assessed,Dry/ Scaly -Color (Leyla-wound Skin Appearance) Assessed -Temperature (Leyla-wound Skin No Abnormality Appearance) (Pt Warm) -Ulcer Cleansing Wound Cleanser -Foul Odor after Cleansing No #17- L. Ischium -Combined with other wound No -Current Size (cm) - Length 1.2 -Current Size (cm) - Width 1.5 -Current Size (cm) - Depth 0.1 -Total Square Cm 1.80 -Photo Taken Yes -Tunneling No -Undermining/Tunneling No -Circular Undermining No -Exudate Amt Large -Exudate Type Serosanguineous -Wound Margin Distinct, Outline Attached -Granulation Amt Medium (34-66%) -Granulation Quality [place] -Slough/Fibrin Yes -Necrosis Amt Medium (34-66%) -Necrotic Tissue Type Adherent Slough -Structure Exposed N/A -Texture (Leyla-wound Skin Appearance) Assessed, Scarring -Moisture (Leyla-wound Skin Appearance) Assessed -Color (Leyla-wound Skin Appearance) Assessed -Temperature (Leyla-wound Skin No Abnormality Appearance) (Pt Warm) -Tenderness on Palpation (Leyla-wound No Skin Appearance) -Ulcer Cleansing Wound Cleanser -Foul Odor after Cleansing No #14 Right Buttock -Combined with other wound No -Current Size (cm) - Length 3.5 -Current Size (cm) - Width 2 -Current Size (cm) - Depth 1.8 -Total Square Cm 7.0 -Photo Taken Yes -Tunneling No -Undermining/Tunneling No -Circular Undermining No -Exudate Amt Medium -Exudate Type Serosanguineous -Wound Margin Distinct, Outline Attached -Granulation Amt Medium (34-66%) -Granulation Quality [place] -Slough/Fibrin Yes -Necrosis Amt Medium (34-66%) -Necrotic Tissue Type Adherent Slough -Structure Exposed N/A -Texture (Leyla-wound Skin Appearance) Assessed, Excoriation -Moisture (Leyla-wound Skin Appearance) Assessed -Color (Leyla-wound Skin Appearance) Assessed -Temperature (Leyla-wound Skin No Abnormality Appearance) (Pt Warm) -Tenderness on Palpation (Leyla-wound No Skin Appearance) -Ulcer Cleansing Wound Cleanser -Foul Odor after Cleansing No WC - Nurse 2 - General Ulcer CM Notes Start: 08/03/24 10:50 Freq: Status: Active Protocol: Activity Type Activity Date Activity User E-sign Co-sign Detail Recorded Client Recorded Date Recorded By Document 08/03/24 11:05 [facility] [id number] 08/03/24 11:13 [facility] 08/03/24 11:05 Wound Center Nurse 2 *#16 R Buttocks- near anus -Time 11:11 -Procedure Performed No -Post Debridement (cm) - Length 0 -Post Debridement (cm) - Width 0 -Post Debridement (cm) - Depth 0 -Total Square (Post) (cm) 0 -Area of Debridement (cm) - Length 0 -Area of Debridement (cm) - Width 0 -Total Square (Area) (cm) 0 -Wound/Ulcer Outcome Healed- Epithelialized #15- L HALLUX -Time 11:10 -Procedure Performed No -Post Debridement (cm) - Length 0 -Post Debridement (cm) - Width 0 -Post Debridement (cm) - Depth 0 -Total Square (Post) (cm) 0 -Area of Debridement (cm) - Length 0 -Area of Debridement (cm) - Width 0 -Total Square (Area) (cm) 0 -Wound/Ulcer Outcome Healed- Epithelialized #17- L. Ischium -Time 11:09 -Correct Patient Yes -Correct Side, Site, Position Yes -Correct Procedure Yes -Procedure Performed Yes -Type of Procedure Debridement -Clinical Debridement Subcutaneous -Tissue Removed Subcutaneous -Post Debridement (cm) - Length 1.3 -Post Debridement (cm) - Width 1 -Post Debridement (cm) - Depth 0.1 -Total Square (Post) (cm) 1.3 -Area of Debridement (cm) - Length 1.3 -Area of Debridement (cm) - Width 1 -Total Square (Area) (cm) 1.3 -Tunneling No -Undermining/Tunneling No -Circular Undermining No -Wound/Ulcer Outcome Not Healed -Ulcer Cleansing Rinsed/ Irrigated with Saline -Foul Odor after Cleansing No -Bioengineered Tissue No -Bleeding Controlled with Pressure -Treatment Response Procedure Tolerated Well -Debridement - Subq, 1st 20sq cm Yes #14 Right Buttock -Time 11:05 -Correct Patient Yes -Correct Side, Site, Position Yes -Correct Procedure Yes -Procedure Performed Yes -Type of Procedure Debridement -Clinical Debridement Muscle / Fascia -Tissue Removed Muscle,Fascia -Post Debridement (cm) - Length 5 -Post Debridement (cm) - Width 2 -Post Debridement (cm) - Depth 1.8 -Total Square (Post) (cm) 10 -Area of Debridement (cm) - Length 5 -Area of Debridement (cm) - Width 2 -Total Square (Area) (cm) 10 -Tunneling No -Undermining/Tunneling No -Circular Undermining No -Wound/Ulcer Outcome Not Healed -Ulcer Cleansing Rinsed/ Irrigated with Saline -Foul Odor after Cleansing No -Bioengineered Tissue No -Bleeding Controlled with Pressure -Treatment Response Procedure Tolerated Well -Debridement - Muscle / Fascia, 1st Yes 20sq cm Pain Scale: 0-10 Numeric Is Patient Pain Free? Yes Additional Wound Wound debrided: Left ischium Laterality: Left Wound Grade/Stage: Stage III Type of Debridement: Excisional debridement Anesthesia Used: 5% Lidocaine Gel Percentage of wound debrided: 100 Instrument Used: 5mm curette Tissue Removed: Fibrin Severity: Fat Layer Exposed Amount of bleeding with debridement: Mild Bleeding Controlled with: Compression and gauze Patient tolerated procedure: Patient tolerated procedure well Assessment/Plan Assessment/Plan (1) Decubitus ulcer of sacral region, stage 2: CODE(S): L89.152 - Pressure ulcer of sacral region, stage 2 PLAN: Wound resolved and patient is to just pad and protect (2) Decubitus ulcer of toe, stage 2: CODE(S): L89.892 - Pressure ulcer of other site, stage 2 QUALIFIERS: Laterality: left Qualified Code(s): L89.892 - Pressure ulcer of other site, stage 2 PLAN: Resolved and needs to be padded and protect patient wears a postop shoe on that foot with a sock underneath. (3) Chronic anemia: CODE(S): D64.9 - Anemia, unspecified PLAN: Continue ferrous sulfate 325 mg to twice a day with stool softeners B12 injections 1000 mcg q. weekly Improved immensely she said at normal rate at this time (4) Decubitus ulcer of right buttock, stage 4: CODE(S): L89.314 - Pressure ulcer of right buttock, stage 4 PLAN: Continue wound VAC increased to 150 mm per mercury and only be changed twice weekly and the next time it will be changes on Thursday. Unless there is problems with suction. Follow-up in 1 week Patient is to continue offloading and local using a low air mattress on bed (5) Skin ulcer of left great toe: CODE(S): L97.529 - Non-pressure chronic ulcer of other part of left foot with unspecified severity QUALIFIERS: Non-pressure ulcer stage: limited to breakdown of skin Qualified Code(s): L97.521 - Non-pressure chronic ulcer of other part of left foot limited to breakdown of skin (6) Decubitus ulcer of left ischium, stage 2: CODE(S): L89.322 - Pressure ulcer of left buttock, stage 2 PLAN: Wash area with antibacterial soap and water and apply Aquacel extra moistened with foam dressing. (7) Ulcer of anus: CODE(S): K62.6 - Ulcer of anus and rectum PLAN: Resolving continue Skin-Prep to area 2-3 times a day
--- NOTE | 2024-08-04 10:00 | WC ---
PHOTO 08/03/24 LEFT HALLUX
--- NOTE | 2024-08-04 10:02 | WC ---
PHOTO 08/03/24 LEFT BUTTOCKS
--- NOTE | 2024-08-04 10:11 | WC ---
PHOTO 08/03/24 RIGHT BUTTOCK
[2024-08-10 10:51] VITALS: BP 143/71; PULSE 64; RESP 18; TEMP 36.4; BMI 16.9
--- NOTE | 2024-08-10 12:33 | PCM.WC.PN ---
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 Patient underwent treatment for colitis as an inpatient in March 2024 and developed a right ischial pressure ulcer. It was debrided twice at [facility]. She has been following for wound care with a nurse practitioner in the wound care center, who referred her to me for second opinion to see if she needs surgery. Patient lives at home in an apartment usually by herself. She does not have a pressure offloading bed. She is quite high functioning; however, she is currently in a nursing facility for wound care ever since the recent hospital admission. 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 She has an adult daughter in [place] and an adult daughter here in [place] who are both very involved and supportive. Progress of Wound: Today the right buttocks is smaller measurements from last week .The left ischium is smaller and the left helix is still healed and were padding and protecting there is a small sheared area by her anus is healed. We will try using EpiFix #2 on her again with decreasing the pressure on the wound VAC at 125 and follow-up in 1 week. She is not to remove the wound VAC till least Thursday. Subjective Subjective Patient is agreeable to plan Objective Data Objective Data Again all her wounds are smaller are resolved and doing very well we will continue using the wound VAC for little longer to get that skin to come out more in the buttocks area Vital Signs: Vital Signs Temp Pulse Resp BP 97.5 F L 64 18 143/71 H 08/10/24 10:51 08/10/24 10:51 08/10/24 10:51 08/10/24 10:51 Weight: 89 lb 6.4 oz Body Mass Index (BMI) 16.9 Lab / Micro Data Attestation: I reviewed the patient's lab results. Physical Exam Const oriented x3 General Appearance: cooperative Orientation / Consciousness: oriented to person, oriented to place and oriented to time Exam Limitations: no limitations Nutritional Appearance: cachectic, underweight and thin HEENT normocephalic Head and Scalp: normal to inspection External Ear: external ears normal Eyes PERRL General Eye: normal appearance of both eyes Neck full ROM General: normal visual inspection Resp normal respiratory effort Effort and Inspection: able to speak in complete sentences Auscultation: clear to auscultation bilaterally Cardio regular rate and regular rhythm Palpation: normal PMI Rate: regular rate Rhythm: regular rhythm GI Rectal Exam: visual inspection abnormal, fistula and other Other Details: Open wound left buttocks and perirectal may be fistula going on. Back/Spine Back/Spine Narrative: Paralysis from waist down Cervical Spine: cervical ROM normal Pelvis: buttocks abnormal right and other soft tissue findings Wound on her coccyx area Skin no rashes or lesions noted Skin Narrative: Open wounds on left buttocks with positive depth and infection possible sepsis sacral area open area nonhealing and perirectal area possibly a fistula. Wounds: wounds noted Wound Narrative: Open wound on coccyx stage II Right buttocks wound stage IV Neuro oriented x3 Psych Appearance: grossly normal Attitude: calm Activity / Motor Behavior: appropriate eye contact Speech: normal speech Mood & Affect: euthymic mood Thought Process: normal thought process Thought Content: normal thought content Attention / Concentration: attention grossly intact Memory / Cognition: memory grossly intact Insight: insight good Judgement: judgement good Debridement Note Debridement Note Wound debrided: Right buttocks Laterality: Right Wound Grade/Stage: Stage IV Type of Debridement: Excisional debridement Anesthesia Used: 5% Lidocaine Gel Depth: in the subcutaneous layer Percentage of wound debrided: 100 Instrument Used: 5mm curette Tissue Removed: Fibrin Severity: Fat Layer Exposed Amount of bleeding with debridement: Mild Bleeding Controlled with: Compression and gauze Patient tolerated procedure: Patient tolerated procedure well Post-Debridement Measurements and Additional Note: Post-Debridement Measurements/Treatment WC - Nurse 1 - General Ulcer Assessment Start: 08/03/24 10:50 Freq: Status: Active Protocol: [email or web address] Activity Type Activity Date Activity User E-sign Co-sign Detail Recorded Client Recorded Date Recorded By Document 08/03/24 10:50 RB [id number] 08/03/24 10:57 RB Document 08/10/24 10:51 DL [id number] 08/10/24 11:06 DL 08/03/24 08/10/24 10:50 10:51 - Today's Visit Information Type of service Follow-up Visit Follow-up Visit (Physician/[facility] (Physician/[facility] [employer] ) ) Arrival Mode Wheelchair Wheelchair Transfer Assistance Manual Manual Transfer Assist (Other) x2 Patient Identification Verified (Name & Yes Yes ) Patient Requires Transmission-Based No No Precautions Height and Weight Body Mass Index (BMI) 16.9 16.9 BMI Classification Underweight Underweight Vital Signs Temperature (97.8 F-99.1 F) 96.8 F L 97.5 F L Temperature Source Temporal Temporal Pulse Rate (60-100) 69 64 Pulse Location Monitor Monitor Respiratory Rate (12-18) 18 18 Respiratory rate source Observation Blood Pressure (90/60-120/80) 133/65 H 143/71 H Blood Pressure Mean (mm Hg) 87 95 Source Monitor Monitor Position Semi-Fowlers Blood Pressure Location Left Arm History Since Last Visit- (Skip if this is Patient's initial visit) Have you changed medications since your No No last visit? Any new allergies or adverse reactions No No Had a fall/change in ADL's that may No No increase risk of falls Signs or symptoms of abuse and/or No No neglect since last visit Have you been in the hospital since your No No last visit? Has dressing in place as prescribed Yes Yes Has compression in place as prescribed N/A N/A Has offloadiing in place as prescribed Yes Yes Experienced any changes in pain level or No No management Pain Scale: 0-10 Numeric Is Patient Pain Free? Yes Yes - Nurse 1 - General Ulcer Measurement Start: 08/03/24 10:50 Freq: Status: Active Protocol: Activity Type Activity Date Activity User E-sign Co-sign Detail Recorded Client Recorded Date Recorded By Document 08/03/24 10:50 RB [id number] 08/03/24 10:57 RB Document 08/10/24 10:51 DL [id number] 08/10/24 11:06 DL 08/03/24 08/10/24 10:50 10:51 Wound Center Nurse 1 *#16 R Buttocks- near anus -Combined with other wound No -Current Size (cm) - Length 0.1 -Current Size (cm) - Width 0.1 -Current Size (cm) - Depth 0.1 -Total Square Cm 0.01 -Photo Taken Yes -Tunneling No -Undermining/Tunneling No -Circular Undermining No -Exudate Amt Small -Exudate Type Serosanguineous -Wound Margin Distinct, Outline Attached -Granulation Amt Medium (34-66%) -Granulation Quality [place] -Slough/Fibrin Yes -Necrosis Amt Medium (34-66%) -Necrotic Tissue Type Adherent Slough -Structure Exposed N/A -Texture (Leyla-wound Skin Appearance) Assessed -Moisture (Leyla-wound Skin Appearance) Assessed -Color (Leyla-wound Skin Appearance) Assessed -Temperature (Leyla-wound Skin No Abnormality Appearance) (Pt Warm) -Tenderness on Palpation (Leyla-wound No Skin Appearance) -Ulcer Cleansing Wound Cleanser -Foul Odor after Cleansing No #15- L HALLUX -Combined with other wound No -Current Size (cm) - Length 0.2 -Current Size (cm) - Width 0.2 -Current Size (cm) - Depth 0.1 -Total Square Cm 0.04 -Photo Taken Yes -Tunneling No -Undermining/Tunneling No -Circular Undermining No -Exudate Amt Medium -Exudate Type Serosanguineous -Wound Margin Distinct, Outline Attached -Granulation Amt Medium (34-66%) -Granulation Quality [place] -Slough/Fibrin Yes -Necrosis Amt Small (1-33%) -Necrotic Tissue Type Adherent Slough -Structure Exposed N/A -Texture (Leyla-wound Skin Appearance) Assessed -Moisture (Leyla-wound Skin Appearance) Assessed,Dry/ Scaly -Color (Leyla-wound Skin Appearance) Assessed -Temperature (Leyla-wound Skin No Abnormality Appearance) (Pt Warm) -Ulcer Cleansing Wound Cleanser -Foul Odor after Cleansing No #17- L. Ischium -Combined with other wound No -Current Size (cm) - Length 1.2 0.6 -Current Size (cm) - Width 1.5 0.6 -Current Size (cm) - Depth 0.1 0.1 -Total Square Cm 1.80 0.36 -Photo Taken Yes Yes -Tunneling No -Undermining/Tunneling No -Circular Undermining No -Exudate Amt Large Medium -Exudate Type Serosanguineous Serosanguineous -Wound Margin Distinct, Distinct, Outline Outline Attached Attached -Granulation Amt Medium (34-66%) Small (1-33%) -Granulation Quality [place],Red -Slough/Fibrin Yes -Necrosis Amt Medium (34-66%) None Present (0 %) -Necrotic Tissue Type Adherent Slough -Structure Exposed N/A N/A -Texture (Leyla-wound Skin Appearance) Assessed, Scarring Scarring -Moisture (Leyla-wound Skin Appearance) Assessed No Abnormality -Color (Leyla-wound Skin Appearance) Assessed No Abnormality -Temperature (Leyla-wound Skin No Abnormality No Abnormality Appearance) (Pt Warm) (Pt Warm) -Tenderness on Palpation (Leyla-wound No No Skin Appearance) -Ulcer Cleansing Wound Cleanser Soap and Water -Foul Odor after Cleansing No No -Anesthetic Used 5% Lidocaine Gel #14 Right Buttock -Combined with other wound No -Current Size (cm) - Length 3.5 3.5 -Current Size (cm) - Width 2 2.5 -Current Size (cm) - Depth 1.8 0.1 -Total Square Cm 7.0 8.75 -Photo Taken Yes Yes -Tunneling No -Undermining/Tunneling No -Circular Undermining No -Exudate Amt Medium Medium -Exudate Type Serosanguineous Serosanguineous -Wound Margin Distinct, Distinct, Outline Outline Attached Attached -Granulation Amt Medium (34-66%) Large (67-100%) -Granulation Quality [place] Red -Slough/Fibrin Yes -Necrosis Amt Medium (34-66%) None Present (0 %) -Necrotic Tissue Type Adherent Slough -Structure Exposed N/A N/A -Texture (Leyla-wound Skin Appearance) Assessed, Scarring Excoriation -Moisture (Leyla-wound Skin Appearance) Assessed No Abnormality -Color (Leyla-wound Skin Appearance) Assessed No Abnormality -Temperature (Leyla-wound Skin No Abnormality No Abnormality Appearance) (Pt Warm) (Pt Warm) -Tenderness on Palpation (Leyla-wound No No Skin Appearance) -Ulcer Cleansing Wound Cleanser Soap and Water -Foul Odor after Cleansing No No -Anesthetic Used 5% Lidocaine Gel WC - Nurse 2 - General Ulcer CM Notes Start: 08/03/24 10:50 Freq: Status: Active Protocol: Activity Type Activity Date Activity User E-sign Co-sign Detail Recorded Client Recorded Date Recorded By Document 08/03/24 11:05 [facility] [id number] 08/03/24 11:13 [facility] Document 08/10/24 11:15 [facility] [id number] 08/10/24 11:32 [facility] 08/03/24 08/10/24 11:05 11:15 Wound Center Nurse 2 *#16 R Buttocks- near anus -Time 11:11 -Procedure Performed No -Post Debridement (cm) - Length 0 -Post Debridement (cm) - Width 0 -Post Debridement (cm) - Depth 0 -Total Square (Post) (cm) 0 -Area of Debridement (cm) - Length 0 -Area of Debridement (cm) - Width 0 -Total Square (Area) (cm) 0 -Wound/Ulcer Outcome Healed- Epithelialized #15- L HALLUX -Time 11:10 -Procedure Performed No -Post Debridement (cm) - Length 0 -Post Debridement (cm) - Width 0 -Post Debridement (cm) - Depth 0 -Total Square (Post) (cm) 0 -Area of Debridement (cm) - Length 0 -Area of Debridement (cm) - Width 0 -Total Square (Area) (cm) 0 -Wound/Ulcer Outcome Healed- Epithelialized #17- L. Ischium -Time 11: 11:15 -Correct Patient Yes Yes -Correct Side, Site, Position Yes Yes -Correct Procedure Yes Yes -Procedure Performed Yes Yes -Type of Procedure Debridement Debridement -Clinical Debridement Subcutaneous Subcutaneous -Tissue Removed Subcutaneous Subcutaneous -Post Debridement (cm) - Length 1.3 1 -Post Debridement (cm) - Width 1 0.5 -Post Debridement (cm) - Depth 0.1 0.1 -Total Square (Post) (cm) 1.3 0.5 -Area of Debridement (cm) - Length 1.3 1 -Area of Debridement (cm) - Width 1 0.5 -Total Square (Area) (cm) 1.3 0.5 -Tunneling No No -Undermining/Tunneling No No -Circular Undermining No No -Wound/Ulcer Outcome Not Healed Not Healed -Ulcer Cleansing Rinsed/ Rinsed/ Irrigated with Irrigated with Saline Saline -Foul Odor after Cleansing No No -Bioengineered Tissue No No -Bleeding Controlled with Pressure Pressure -Treatment Response Procedure Procedure Tolerated Well Tolerated Well -Debridement - Subq, 1st 20sq cm Yes Yes #14 Right Buttock -Time 11:05 11:16 -Correct Patient Yes Yes -Correct Side, Site, Position Yes Yes -Correct Procedure Yes Yes -Procedure Performed Yes Yes -Type of Procedure Debridement Debridement -Clinical Debridement Muscle / Fascia Muscle / Fascia -Tissue Removed Muscle,Fascia Muscle,Fascia -Post Debridement (cm) - Length 5 3 -Post Debridement (cm) - Width 2 2 -Post Debridement (cm) - Depth 1.8 0.6 -Total Square (Post) (cm) 10 6 -Area of Debridement (cm) - Length 5 3 -Area of Debridement (cm) - Width 2 2 -Total Square (Area) (cm) 10 6 -Tunneling No -Undermining/Tunneling No Yes -Undermining/Tunneling Starts (O'clock 12 ) -Undermining/Tunneling Ends (O'clock) 12 -Maximum Distance (cm) 0.5 -Circular Undermining No -Wound/Ulcer Outcome Not Healed Not Healed -Ulcer Cleansing Rinsed/ Rinsed/ Irrigated with Irrigated with Saline Saline -Foul Odor after Cleansing No No -Bioengineered Tissue No Yes -Type of Bioengineered Tissue Epifix Mesh -Expiration Date 01/02/29 -Product Lot Number [id number] -Percent Used 100 -Lot number of Saline Used [id number] -Bleeding Controlled with Pressure Pressure -Treatment Response Procedure Procedure Tolerated Well Tolerated Well -Debridement - Muscle / Fascia, 1st Yes No 20sq cm -Apply Skin Sub - 1st 25 sq cm - Legs 1 -Epifix Mesh (per sq cm) 11 Pain Scale: 0-10 Numeric Is Patient Pain Free? Yes Yes WC - Nurse 3 - General Ulcer D/C NN Start: 08/03/24 10:50 Freq: Status: Active Protocol: Activity Type Activity Date Activity User E-sign Co-sign Detail Recorded Client Recorded Date Recorded By Document 08/03/24 11:24 RB [id number] 08/03/24 11:29 RB Document 08/10/24 11:40 RB [id number] 08/10/24 11:42 RB 08/03/24 08/10/24 11:24 11:40 Wound Care Center Nurse 3 #17- L. Ischium -Ulcer Cleansing Wound Cleanser Rinsed/ Irrigated with Saline -Primary Dressing Applied Aquacel Extra, Aquacel Extra, Silicone Border Silicone Border Foam 4x4, Foam 4x4, Silicone Border Silicone Border Foam 6x6 Foam 6x6 -Aquacel Extra 1 1 -Silicone Border Foam 4x4 1 1 -Silicone Border Foam 6x6 1 1 -Wound Comment(s) 4x4 silicone R HALLUX PAD border dressing AND PROTECR to left hallux WITH MEPILEX #14 Right Buttock -Ulcer Cleansing Wound Cleanser -Negative Pressure Wound Therapy Continue Continue -Pieces of White Foam Inserted 150 125 -Pieces of Black Foam Inserted 1 1 -NPWT Application Charge NPWT & NPWT & Debridement (nc Debridement (nc ) ) Leyla-Wound Care Barrier Treatment Response Procedure Tolerated Well Pain Scale: 0-10 Numeric Is Patient Pain Free? Yes Yes WC - Visit Discharge Discharge Condition Stable Stable Ambulatory Status Wheelchair Wheelchair Transportation [facility] [place] Medication Reconcilliation completed & No No provided to patient/care provider Clinical Summary of Care Provided Yes Yes Additional Wound Wound debrided: Left ischium Laterality: Left Wound Grade/Stage: Stage III Type of Debridement: Excisional debridement Anesthesia Used: 5% Lidocaine Gel Percentage of wound debrided: 100 Instrument Used: 5mm curette Tissue Removed: Fibrin Severity: Fat Layer Exposed Amount of bleeding with debridement: Mild Bleeding Controlled with: Compression and gauze Patient tolerated procedure: Patient tolerated procedure well Assessment/Plan Assessment/Plan (1) Decubitus ulcer of sacral region, stage 2: CODE(S): L89.152 - Pressure ulcer of sacral region, stage 2 PLAN: Wound resolved and patient is to just pad and protect (2) Decubitus ulcer of toe, stage 2: CODE(S): L89.892 - Pressure ulcer of other site, stage 2 QUALIFIERS: Laterality: left Qualified Code(s): L89.892 - Pressure ulcer of other site, stage 2 PLAN: Resolved and needs to be padded and protect patient wears a postop shoe on that foot with a sock underneath. (3) Chronic anemia: CODE(S): D64.9 - Anemia, unspecified PLAN: Continue ferrous sulfate 325 mg to twice a day with stool softeners B12 injections 1000 mcg q. weekly Improved immensely she said at normal rate at this time (4) Decubitus ulcer of right buttock, stage 4: CODE(S): L89.314 - Pressure ulcer of right buttock, stage 4 PLAN: Epi #2 was applied to the outside and inside of the decubitus ulcer and patient will have a wound VAC decreased to 125 mm per mercury and only be changed twice weekly and the next time it will be changes on Thursday. Unless there is problems with suction. Follow-up in 1 week Patient is to continue offloading and local using a low air mattress on bed (5) Skin ulcer of left great toe: CODE(S): L97.529 - Non-pressure chronic ulcer of other part of left foot with unspecified severity QUALIFIERS: Non-pressure ulcer stage: limited to breakdown of skin Qualified Code(s): L97.521 - Non-pressure chronic ulcer of other part of left foot limited to breakdown of skin (6) Decubitus ulcer of left ischium, stage 2: CODE(S): L89.322 - Pressure ulcer of left buttock, stage 2 PLAN: Wash area with antibacterial soap and water and apply Aquacel extra moistened with foam dressing. (7) Ulcer of anus: CODE(S): K62.6 - Ulcer of anus and rectum PLAN: Skin-Prep to area 2-3 times a day
--- NOTE | 2024-08-11 11:02 | WC ---
PHOTO 08/10/24 RIGHT BUTTOCK
--- NOTE | 2024-08-11 11:04 | WC ---
PHOTO 08/10/24 LEFT BUTTOCK
[2024-08-17 10:47] VITALS: BP 122/73; PULSE 76; RESP 18; TEMP 35.8; BMI 16.9
--- NOTE | 2024-08-17 12:16 | PCM.WC.PN ---
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 Patient underwent treatment for colitis as an inpatient in March 2024 and developed a right ischial pressure ulcer. It was debrided twice at [facility]. She has been following for wound care with a nurse practitioner in the wound care center, who referred her to me for second opinion to see if she needs surgery. Patient lives at home in an apartment usually by herself. She does not have a pressure offloading bed. She is quite high functioning; however, she is currently in a nursing facility for wound care ever since the recent hospital admission. 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 She has an adult daughter in [place] and an adult daughter here in [place] who are both very involved and supportive. Progress of Wound: Today the right buttocks is smaller measurements from last week .The left ischium is healed and we will just do for another week of sure sure prep to the wound and cover for pad and protecting. The left helix is still healed and we are padding and protecting there is a small sheared area by her anus is healed. We will try using EpiFix #3 on her again and there is no depth so therefore we will stop the wound VAC this week and just use the EpiFix dressing. Subjective Subjective Patient is very excited about not having a wound VAC we are doing a wound VAC vacation for a week Objective Data Objective Data So the right buttocks wound is basically just a indentation now with an open wound with no real depth and it is hyper granulated little bit so we are going to stop the wound VAC and try just using the EpiFix. Patient just found out she is getting her overlay new low air mattress tomorrow. The left ischium is still fragile so we will use sure prep and pad and protect daily left lateral toe helix we will still pad and protect with sure prep and dressing and on near her anus and her right ischium is still all healed but will continue putting sugar prep on them as often as we can. Patient is still offloading very well and eating and getting her proteins and so she is healing well. Vital Signs: Vital Signs Temp Pulse Resp BP 96.5 F L 76 18 122/73 H 08/17/24 10:47 08/17/24 10:47 08/17/24 10:47 08/17/24 10:47 Weight: 89 lb 6.4 oz Body Mass Index (BMI) 16.9 Lab / Micro Data Attestation: I reviewed the patient's lab results. Physical Exam Const oriented x3 General Appearance: cooperative Orientation / Consciousness: oriented to person, oriented to place and oriented to time Exam Limitations: no limitations Nutritional Appearance: cachectic, underweight and thin HEENT normocephalic Head and Scalp: normal to inspection External Ear: external ears normal Eyes PERRL General Eye: normal appearance of both eyes Neck full ROM General: normal visual inspection Resp normal respiratory effort Effort and Inspection: able to speak in complete sentences Auscultation: clear to auscultation bilaterally Cardio regular rate and regular rhythm Palpation: normal PMI Rate: regular rate Rhythm: regular rhythm GI Rectal Exam: visual inspection abnormal, fistula and other Other Details: Open wound left buttocks and perirectal may be fistula going on. Back/Spine Back/Spine Narrative: Paralysis from waist down Cervical Spine: cervical ROM normal Pelvis: buttocks abnormal right and other soft tissue findings Wound on her coccyx area Skin no rashes or lesions noted Skin Narrative: Open wounds on left buttocks with positive depth and infection possible sepsis sacral area open area nonhealing and perirectal area possibly a fistula. Wounds: wounds noted Wound Narrative: Open wound on coccyx stage II Right buttocks wound stage IV Neuro oriented x3 Psych Appearance: grossly normal Attitude: calm Activity / Motor Behavior: appropriate eye contact Speech: normal speech Mood & Affect: euthymic mood Thought Process: normal thought process Thought Content: normal thought content Attention / Concentration: attention grossly intact Memory / Cognition: memory grossly intact Insight: insight good Judgement: judgement good Debridement Note Debridement Note Wound debrided: Right buttocks Laterality: Right Wound Grade/Stage: Stage IV Type of Debridement: Excisional debridement Anesthesia Used: 5% Lidocaine Gel Depth: in the subcutaneous layer Percentage of wound debrided: 100 Instrument Used: 5mm curette Tissue Removed: Fibrin Severity: Fat Layer Exposed Amount of bleeding with debridement: Mild Bleeding Controlled with: Compression and gauze Patient tolerated procedure: Patient tolerated procedure well Post-Debridement Measurements and Additional Note: Post-Debridement Measurements/Treatment WC - Nurse 1 - General Ulcer Assessment Start: 08/03/24 10:50 Freq: Status: Active Protocol: JOSEPHINE Activity Type Activity Date Activity User E-sign Co-sign Detail Recorded Client Recorded Date Recorded By Document 08/03/24 10:50 RB [id number] 08/03/24 10:57 RB Document 08/10/24 10:51 DL [id number] 08/10/24 11:06 DL Document 08/17/24 10:47 DL [id number] 08/17/24 11:01 DL 08/03/24 08/10/24 08/17/24 10:50 10:51 10:47 WC - Today's Visit Information Type of service Follow-up Visit Follow-up Visit Follow-up Visit (Physician/CERTIFIED MEDICAL CODER (Physician/CERTIFIED MEDICAL CODER (Physician/CERTIFIED MEDICAL CODER ) ) ) Arrival Mode Wheelchair Wheelchair Wheelchair Transfer Assistance Manual Manual Manual Transfer Assist (Other) x2 x2 Patient Identification Verified (Name & Yes Yes Yes ) Patient Requires Transmission-Based No No No Precautions Height and Weight Body Mass Index (BMI) 16.9 16.9 16.9 BMI Classification Underweight Underweight Underweight Vital Signs Temperature (97.8 F-99.1 F) 96.8 F L 97.5 F L 96.5 F L Temperature Source Temporal Temporal Temporal Pulse Rate (60-100) 69 64 76 Pulse Location Monitor Monitor Monitor Respiratory Rate (12-18) 18 18 18 Respiratory rate source Observation Observation Blood Pressure (90/60-120/80) 133/65 H 143/71 H 122/73 H Blood Pressure Mean (mm Hg) 87 95 89 Source Monitor Monitor Monitor Position Semi-Fowlers Blood Pressure Location Left Arm History Since Last Visit- (Skip if this is Patient's initial visit) Have you changed medications since your No No No last visit? Any new allergies or adverse reactions No No No Had a fall/change in ADL's that may No No No increase risk of falls Signs or symptoms of abuse and/or No No No neglect since last visit Have you been in the hospital since your No No No last visit? Has dressing in place as prescribed Yes Yes Yes Has compression in place as prescribed N/A N/A N/A Has offloadiing in place as prescribed Yes Yes Yes Experienced any changes in pain level or No No No management Pain Scale: 0-10 Numeric Is Patient Pain Free? Yes Yes Yes WC - Nurse 1 - General Ulcer Measurement Start: 08/03/24 10:50 Freq: Status: Active Protocol: Activity Type Activity Date Activity User E-sign Co-sign Detail Recorded Client Recorded Date Recorded By Document 08/03/24 10:50 RB [id number] 08/03/24 10:57 RB Document 08/10/24 10:51 DL [id number] 08/10/24 11:06 DL Document 08/17/24 10:47 DL [id number] 08/17/24 11:01 DL 08/03/24 08/10/24 08/17/24 10:50 10:51 10:47 Wound Center Nurse 1 *#16 R Buttocks- near anus -Combined with other wound No -Current Size (cm) - Length 0.1 -Current Size (cm) - Width 0.1 -Current Size (cm) - Depth 0.1 -Total Square Cm 0.01 -Photo Taken Yes -Tunneling No -Undermining/Tunneling No -Circular Undermining No -Exudate Amt Small -Exudate Type Serosanguineous -Wound Margin Distinct, Outline Attached -Granulation Amt Medium (34-66%) -Granulation Quality Welsh -Slough/Fibrin Yes -Necrosis Amt Medium (34-66%) -Necrotic Tissue Type Adherent Slough -Structure Exposed N/A -Texture (Leyla-wound Skin Appearance) Assessed -Moisture (Leyla-wound Skin Appearance) Assessed -Color (Leyla-wound Skin Appearance) Assessed -Temperature (Leyla-wound Skin No Abnormality Appearance) (Pt Warm) -Tenderness on Palpation (Leyla-wound No Skin Appearance) -Ulcer Cleansing Wound Cleanser -Foul Odor after Cleansing No #15- L HALLUX -Combined with other wound No -Current Size (cm) - Length 0.2 -Current Size (cm) - Width 0.2 -Current Size (cm) - Depth 0.1 -Total Square Cm 0.04 -Photo Taken Yes -Tunneling No -Undermining/Tunneling No -Circular Undermining No -Exudate Amt Medium -Exudate Type Serosanguineous -Wound Margin Distinct, Outline Attached -Granulation Amt Medium (34-66%) -Granulation Quality Welsh -Slough/Fibrin Yes -Necrosis Amt Small (1-33%) -Necrotic Tissue Type Adherent Slough -Structure Exposed N/A -Texture (Leyla-wound Skin Appearance) Assessed -Moisture (Leyla-wound Skin Appearance) Assessed,Dry/ Scaly -Color (Leyla-wound Skin Appearance) Assessed -Temperature (Leyla-wound Skin No Abnormality Appearance) (Pt Warm) -Ulcer Cleansing Wound Cleanser -Foul Odor after Cleansing No #17- L. Ischium -Combined with other wound No No -Current Size (cm) - Length 1.2 0.6 0.1 -Current Size (cm) - Width 1.5 0.6 0.1 -Current Size (cm) - Depth 0.1 0.1 0.1 -Total Square Cm 1.80 0.36 0.01 -Date of Last Picture (Recall this 08/17/24 field) -Photo Taken Yes Yes Yes -Epithelialization Large 67-100% -Tunneling No No -Undermining/Tunneling No No -Circular Undermining No No -Exudate Amt Large Medium Small -Exudate Type Serosanguineous Serosanguineous Serous -Wound Margin Distinct, Distinct, Flat & Intact Outline Outline Attached Attached -Granulation Amt Medium (34-66%) Small (1-33%) -Granulation Quality Welsh Welsh,Red -Slough/Fibrin Yes -Necrosis Amt Medium (34-66%) None Present (0 %) -Necrotic Tissue Type Adherent Slough -Structure Exposed N/A N/A -Texture (Leyla-wound Skin Appearance) Assessed, Scarring Assessed Scarring -Moisture (Leyla-wound Skin Appearance) Assessed No Abnormality Assessed -Color (Leyla-wound Skin Appearance) Assessed No Abnormality Assessed -Temperature (Leyla-wound Skin No Abnormality No Abnormality No Abnormality Appearance) (Pt Warm) (Pt Warm) (Pt Warm) -Tenderness on Palpation (Leyla-wound No No No Skin Appearance) -Ulcer Cleansing Wound Cleanser Soap and Water Rinsed/ Irrigated with Saline -Foul Odor after Cleansing No No -Anesthetic Used 5% Lidocaine Gel #14 Right Buttock -Combined with other wound No No -Current Size (cm) - Length 3.5 3.5 3 -Current Size (cm) - Width 2 2.5 2 -Current Size (cm) - Depth 1.8 0.1 0.1 -Total Square Cm 7.0 8.75 6 -Date of Last Picture (Recall this 08/17/24 field) -Photo Taken Yes Yes Yes -Epithelialization Small 1-33% -Tunneling No No -Undermining/Tunneling No No -Circular Undermining No No -Exudate Amt Medium Medium Medium -Exudate Type Serosanguineous Serosanguineous Serosanguineous -Wound Margin Distinct, Distinct, Distinct, Outline Outline Outline Attached Attached Attached -Granulation Amt Medium (34-66%) Large (67-100%) Large (67-100%) -Granulation Quality Welsh Red Red -Slough/Fibrin Yes No -Necrosis Amt Medium (34-66%) None Present (0 None Present (0 %) %) -Necrotic Tissue Type Adherent Slough -Structure Exposed N/A N/A -Texture (Leyla-wound Skin Appearance) Assessed, Scarring Assessed Excoriation -Moisture (Leyla-wound Skin Appearance) Assessed No Abnormality Assessed -Color (Leyla-wound Skin Appearance) Assessed No Abnormality Assessed -Temperature (Leyla-wound Skin No Abnormality No Abnormality No Abnormality Appearance) (Pt Warm) (Pt Warm) (Pt Warm) -Tenderness on Palpation (Leyla-wound No No No Skin Appearance) -Ulcer Cleansing Wound Cleanser Soap and Water Rinsed/ Irrigated with Saline -Foul Odor after Cleansing No No No -Anesthetic Used 5% Lidocaine 5% Lidocaine Gel Gel WC - Nurse 2 - General Ulcer CM Notes Start: 08/03/24 10:50 Freq: Status: Active Protocol: Activity Type Activity Date Activity User E-sign Co-sign Detail Recorded Client Recorded Date Recorded By Document 08/03/24 11:05 [facility] [id number] 08/03/24 11:13 BM Document 08/10/24 11:15 [facility] [id number] 08/10/24 11:32 BM Document 08/17/24 11:09 [facility] [id number] 08/17/24 11:45 BM 08/03/24 08/10/24 08/17/24 11:05 11:15 11:09 Wound Center Nurse 2 *#16 R Buttocks- near anus -Time 11:11 -Procedure Performed No -Post Debridement (cm) - Length 0 -Post Debridement (cm) - Width 0 -Post Debridement (cm) - Depth 0 -Total Square (Post) (cm) 0 -Area of Debridement (cm) - Length 0 -Area of Debridement (cm) - Width 0 -Total Square (Area) (cm) 0 -Wound/Ulcer Outcome Healed- Epithelialized #15- L HALLUX -Time 11:10 -Procedure Performed No -Post Debridement (cm) - Length 0 -Post Debridement (cm) - Width 0 -Post Debridement (cm) - Depth 0 -Total Square (Post) (cm) 0 -Area of Debridement (cm) - Length 0 -Area of Debridement (cm) - Width 0 -Total Square (Area) (cm) 0 -Wound/Ulcer Outcome Healed- Epithelialized #17- L. Ischium -Time 11: 11:15 11:09 -Correct Patient Yes Yes -Correct Side, Site, Position Yes Yes -Correct Procedure Yes Yes -Procedure Performed Yes Yes No -Type of Procedure Debridement Debridement -Clinical Debridement Subcutaneous Subcutaneous -Tissue Removed Subcutaneous Subcutaneous -Post Debridement (cm) - Length 1.3 1 0.1 -Post Debridement (cm) - Width 1 0.5 0.1 -Post Debridement (cm) - Depth 0.1 0.1 0.1 -Total Square (Post) (cm) 1.3 0.5 0.01 -Area of Debridement (cm) - Length 1.3 1 0.1 -Area of Debridement (cm) - Width 1 0.5 0.1 -Total Square (Area) (cm) 1.3 0.5 0.01 -Tunneling No No No -Undermining/Tunneling No No No -Circular Undermining No No No -Wound/Ulcer Outcome Not Healed Not Healed Not Healed -Ulcer Cleansing Rinsed/ Rinsed/ Rinsed/ Irrigated with Irrigated with Irrigated with Saline Saline Saline -Foul Odor after Cleansing No No No -Bioengineered Tissue No No No -Bleeding Controlled with Pressure Pressure NA -Treatment Response Procedure Procedure Tolerated Well Tolerated Well -Debridement - Subq, 1st 20sq cm Yes Yes #14 Right Buttock -Time 11:05 11:16 11:09 -Correct Patient Yes Yes Yes -Correct Side, Site, Position Yes Yes Yes -Correct Procedure Yes Yes Yes -Procedure Performed Yes Yes Yes -Type of Procedure Debridement Debridement Debridement -Clinical Debridement Muscle / Fascia Muscle / Fascia Subcutaneous -Tissue Removed Muscle,Fascia Muscle,Fascia Subcutaneous -Post Debridement (cm) - Length 5 3 3.4 -Post Debridement (cm) - Width 2 2 2 -Post Debridement (cm) - Depth 1.8 0.6 0.1 -Total Square (Post) (cm) 10 6 6.8 -Area of Debridement (cm) - Length 5 3 3.4 -Area of Debridement (cm) - Width 2 2 2 -Total Square (Area) (cm) 10 6 6.8 -Tunneling No No -Undermining/Tunneling No Yes No -Undermining/Tunneling Starts (O'clock 12 ) -Undermining/Tunneling Ends (O'clock) 12 -Maximum Distance (cm) 0.5 -Circular Undermining No No -Wound/Ulcer Outcome Not Healed Not Healed Not Healed -Ulcer Cleansing Rinsed/ Rinsed/ Rinsed/ Irrigated with Irrigated with Irrigated with Saline Saline Saline -Foul Odor after Cleansing No No No -Bioengineered Tissue No Yes Yes -Type of Bioengineered Tissue Epifix Mesh Epifix Mesh -Expiration Date 01/02/29 02/01/29 -Product Lot Number [id number] -Percent Used 100 100 -Lot number of Saline Used [id number] -Bleeding Controlled with Pressure Pressure Pressure -Treatment Response Procedure Procedure Procedure Tolerated Well Tolerated Well Tolerated Well -Debridement - Subq, 1st 20sq cm No -Debridement - Muscle / Fascia, 1st Yes No 20sq cm -Apply Skin Sub - 1st 25 sq cm - Legs 1 1 -Epifix Mesh Application 1-4 (per sq 11 11 cm) Pain Scale: 0-10 Numeric Is Patient Pain Free? Yes Yes Yes - Nurse 3 - General Ulcer D/C NN Start: 08/03/24 10:50 Freq: Status: Active Protocol: Activity Type Activity Date Activity User E-sign Co-sign Detail Recorded Client Recorded Date Recorded By Document 08/03/24 11:24 RB [id number] 08/03/24 11:29 RB Document 08/10/24 11:40 RB [id number] 08/10/24 11:42 RB Document 08/17/24 12:02 RB [id number] 08/17/24 12:04 RB 04/02/25 04/09/25 04/16/25 11:24 11:40 12:02 Wound Care Center Nurse 3 #17- L. Ischium -Ulcer Cleansing Wound Cleanser Rinsed/ Irrigated with Saline -Primary Dressing Applied Aquacel Extra, Aquacel Extra, Silicone Border Silicone Border Silicone Border Foam 4x4 Foam 4x4, Foam 4x4, Silicone Border Silicone Border Foam 6x6 Foam 6x6 -Aquacel Extra 1 1 -Silicone Border Foam 4x4 1 1 2 -Silicone Border Foam 6x6 1 1 -Wound Comment(s) 4x4 silicone R HALLUX PAD pad in protect border dressing AND PROTECR left hallux to left hallux WITH MEPILEX #14 Right Buttock -Ulcer Cleansing Wound Cleanser -Negative Pressure Wound Therapy Continue Continue -Pieces of White Foam Inserted 150 125 -Pieces of Black Foam Inserted 1 1 -NPWT Application Charge NPWT & NPWT & Debridement (nc Debridement (nc ) ) -Primary Dressing Applied Silicone Border Foam 6x6 -Primary Dressing Covered/Secured with Dry Gauze -Silicone Border Foam 6x6 1 Leyla-Wound Care Barrier Treatment Response Procedure Procedure Tolerated Well Tolerated Well Pain Scale: 0-10 Numeric Is Patient Pain Free? Yes Yes Yes WC - Visit Discharge Discharge Condition Stable Stable Stable Ambulatory Status Wheelchair Wheelchair Wheelchair Transportation [employer] transport Medication Reconcilliation completed & No No No provided to patient/care provider Clinical Summary of Care Provided Yes Yes Yes Additional Wound Wound Grade/Stage: Stage III Assessment/Plan Assessment/Plan (1) Decubitus ulcer of sacral region, stage 2: CODE(S): L89.152 - Pressure ulcer of sacral region, stage 2 PLAN: Wound resolved and patient is to just sure prep pad and protect (2) Decubitus ulcer of toe, stage 2: CODE(S): L89.892 - Pressure ulcer of other site, stage 2 QUALIFIERS: Laterality: left Qualified Code(s): L89.892 - Pressure ulcer of other site, stage 2 PLAN: Resolved and needs to use your prep and padded and protect patient wears a postop shoe on that foot with a sock underneath. (3) Chronic anemia: CODE(S): D64.9 - Anemia, unspecified PLAN: Continue ferrous sulfate 325 mg to twice a day with stool softeners B12 injections 1000 mcg q. weekly Improved immensely she said at normal rate at this time (4) Decubitus ulcer of right buttock, stage 4: CODE(S): L89.314 - Pressure ulcer of right buttock, stage 4 PLAN: Epi #3 was applied to the outside and inside of the decubitus ulcer Low air overlays to arrive today or tomorrow Follow-up in 1 week Patient is to continue offloading and local using a low air mattress on bed that she has (5) Skin ulcer of left great toe: CODE(S): L97.529 - Non-pressure chronic ulcer of other part of left foot with unspecified severity QUALIFIERS: Non-pressure ulcer stage: limited to breakdown of skin Qualified Code(s): L97.521 - Non-pressure chronic ulcer of other part of left foot limited to breakdown of skin (6) Decubitus ulcer of left ischium, stage 2: CODE(S): L89.322 - Pressure ulcer of left buttock, stage 2 PLAN: Wash area with antibacterial soap and water and apply sure prep and padded dressing. (7) Ulcer of anus: CODE(S): K62.6 - Ulcer of anus and rectum PLAN: Skin-Prep to area 2-3 times a day
--- NOTE | 2024-08-18 08:09 | WC ---
PHOTO 08/17/24 RIGHT BUTTOCK
--- NOTE | 2024-08-18 08:11 | WC ---
PHOTO 08/17/24 LEFT ISCHIUM
--- NOTE | 2024-08-18 09:43 | WC ---
PHOTO 08/17/24 LEFT ISCHIUM
[2024-08-24 10:47] VITALS: BP 164/92; PULSE 82; RESP 18; TEMP 36.2; BMI 16.9
--- NOTE | 2024-08-24 11:50 | PN.PCM_ITS ---
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 Patient underwent treatment for colitis as an inpatient in March 2024 and developed a right ischial pressure ulcer. It was debrided twice at [facility]. She has been following for wound care with a nurse practitioner in the wound care center, who referred her to me for second opinion to see if she needs surgery. Patient lives at home in an apartment usually by herself. She does not have a pressure offloading bed. She is quite high functioning; however, she is currently in a nursing facility for wound care ever since the recent hospital admission. 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 She has an adult daughter in [place] and an adult daughter here in [place] who are both very involved and supportive. Progress of Wound: Today the right buttocks is smaller measurements from last week .The left ischium is healed and we will just do for another week of sure sure prep to the wound and cover for pad and protecting. The left helix is still healed and we are padding and protecting there is a small sheared area by her anus is healed. We will try using EpiFix #4 on her again and there is no depth so therefore we will stop the wound VAC this week and just use the EpiFix dressing. We will discontinue the wound VAC for sure now patient can return it. She also received her overlay mattress and she is doing well on it Subjective Subjective Patient is very pleased with outcomes and is looking forward to healing Objective Data Objective Data No sign of infection wound seems to be healing well measurements are smaller it is just a matter of hypergranulating a little bit on the buttocks that we hit with some nitrous sticks and then we put the epi fix on top. Vital Signs: Vital Signs Temp Pulse Resp BP 97.2 F L 82 18 164/92 H 08/24/24 10:47 08/24/24 10:47 08/24/24 10:47 08/24/24 10:47 Weight: 89 lb 6.4 oz Body Mass Index (BMI) 16.9 Lab / Micro Data Attestation: I reviewed the patient's lab results. Physical Exam Const oriented x3 General Appearance: cooperative Orientation / Consciousness: oriented to person, oriented to place and oriented to time Exam Limitations: no limitations Nutritional Appearance: cachectic, underweight and thin HEENT normocephalic Head and Scalp: normal to inspection External Ear: external ears normal Eyes PERRL General Eye: normal appearance of both eyes Neck full ROM General: normal visual inspection Resp normal respiratory effort Effort and Inspection: able to speak in complete sentences Auscultation: clear to auscultation bilaterally Cardio regular rate and regular rhythm Palpation: normal PMI Rate: regular rate Rhythm: regular rhythm GI Rectal Exam: visual inspection abnormal, fistula and other Other Details: Open wound left buttocks and perirectal may be fistula going on. Back/Spine Back/Spine Narrative: Paralysis from waist down Cervical Spine: cervical ROM normal Pelvis: buttocks abnormal right and other soft tissue findings Wound on her coccyx area Skin no rashes or lesions noted Skin Narrative: Open wounds on left buttocks with positive depth and infection possible sepsis sacral area open area nonhealing and perirectal area possibly a fistula. Wounds: wounds noted Wound Narrative: Open wound on coccyx stage II Right buttocks wound stage IV Neuro oriented x3 Psych Appearance: grossly normal Attitude: calm Activity / Motor Behavior: appropriate eye contact Speech: normal speech Mood & Affect: euthymic mood Thought Process: normal thought process Thought Content: normal thought content Attention / Concentration: attention grossly intact Memory / Cognition: memory grossly intact Insight: insight good Judgement: judgement good Debridement Note Debridement Note Wound debrided: Right buttocks Laterality: Right Wound Grade/Stage: Stage IV Type of Debridement: Excisional debridement Anesthesia Used: 5% Lidocaine Gel Depth: in the subcutaneous layer Percentage of wound debrided: 100 Instrument Used: 5mm curette Tissue Removed: Fibrin Severity: Fat Layer Exposed Amount of bleeding with debridement: Mild Bleeding Controlled with: Compression and gauze Patient tolerated procedure: Patient tolerated procedure well Post-Debridement Measurements and Additional Note: Post-Debridement Measurements/Treatment WC - Nurse 1 - General Ulcer Assessment Start: 08/03/24 10:50 Freq: Status: Active Protocol: WC.LOWEXT Activity Type Activity Date Activity User E-sign Co-sign Detail Recorded Client Recorded Date Recorded By Document 08/03/24 10:50 RB [id number] 08/03/24 10:57 RB Document 08/10/24 10:51 DL [id number] 08/10/24 11:06 DL Document 08/17/24 10:47 DL [id number] 08/17/24 11:01 DL Document 08/24/24 10:47 RB [id number] 08/24/24 10:50 RB 08/03/24 08/10/24 08/17/24 10:50 10:51 10:47 WC - Today's Visit Information Type of service Follow-up Visit Follow-up Visit Follow-up Visit (Physician/CABLE HOOKER (Physician/CABLE HOOKER (Physician/CABLE HOOKER ) ) ) Arrival Mode Wheelchair Wheelchair Wheelchair Transfer Assistance Manual Manual Manual Transfer Assist (Other) x2 x2 Patient Identification Verified (Name & Yes Yes Yes ) Patient Requires Transmission-Based No No No Precautions Height and Weight Body Mass Index (BMI) 16.9 16.9 16.9 BMI Classification Underweight Underweight Underweight Vital Signs Temperature (97.8 F-99.1 F) 96.8 F L 97.5 F L 96.5 F L Temperature Source Temporal Temporal Temporal Pulse Rate (60-100) 69 64 76 Pulse Location Monitor Monitor Monitor Respiratory Rate (12-18) 18 18 18 Respiratory rate source Observation Observation Blood Pressure (90/60-120/80) 133/65 H 143/71 H 122/73 H Blood Pressure Mean (mm Hg) 87 95 89 Source Monitor Monitor Monitor Position Semi-Fowlers Blood Pressure Location Left Arm History Since Last Visit- (Skip if this is Patient's initial visit) Have you changed medications since your No No No last visit? Any new allergies or adverse reactions No No No Had a fall/change in ADL's that may No No No increase risk of falls Signs or symptoms of abuse and/or No No No neglect since last visit Have you been in the hospital since your No No No last visit? Has dressing in place as prescribed Yes Yes Yes Has compression in place as prescribed N/A N/A N/A Has offloadiing in place as prescribed Yes Yes Yes Experienced any changes in pain level or No No No management Pain Scale: 0-10 Numeric Is Patient Pain Free? Yes Yes Yes 08/24/24 10:47 WC - Today's Visit Information Type of service Follow-up Visit (Physician/CABLE HOOKER ) Arrival Mode Ambulatory Transfer Assistance None Transfer Assist (Other) Patient Identification Verified (Name & Yes ) Patient Requires Transmission-Based No Precautions Height and Weight Body Mass Index (BMI) 16.9 BMI Classification Underweight Vital Signs Temperature (97.8 F-99.1 F) 97.2 F L Temperature Source Temporal Pulse Rate (60-100) 82 Pulse Location Monitor Respiratory Rate (12-18) 18 Respiratory rate source Observation Blood Pressure (90/60-120/80) 164/92 H Blood Pressure Mean (mm Hg) 116 Source Monitor Position Semi-Fowlers Blood Pressure Location Left Arm History Since Last Visit- (Skip if this is Patient's initial visit) Have you changed medications since your No last visit? Any new allergies or adverse reactions No Had a fall/change in ADL's that may No increase risk of falls Signs or symptoms of abuse and/or No neglect since last visit Have you been in the hospital since your No last visit? Has dressing in place as prescribed Yes Has compression in place as prescribed N/A Has offloadiing in place as prescribed Yes Experienced any changes in pain level or No management Pain Scale: 0-10 Numeric Is Patient Pain Free? Yes - Nurse 1 - General Ulcer Measurement Start: 08/03/24 10:50 Freq: Status: Active Protocol: Activity Type Activity Date Activity User E-sign Co-sign Detail Recorded Client Recorded Date Recorded By Document 08/03/24 10:50 RB [id number] 08/03/24 10:57 RB Document 08/10/24 10:51 DL [id number] 08/10/24 11:06 DL Document 08/17/24 10:47 DL [id number] 08/17/24 11:01 DL Document 08/24/24 10:47 RB [id number] 08/24/24 10:50 RB 08/03/24 08/10/24 08/17/24 10:50 10:51 10:47 Wound Center Nurse 1 *#16 R Buttocks- near anus -Combined with other wound No -Current Size (cm) - Length 0.1 -Current Size (cm) - Width 0.1 -Current Size (cm) - Depth 0.1 -Total Square Cm 0.01 -Photo Taken Yes -Tunneling No -Undermining/Tunneling No -Circular Undermining No -Exudate Amt Small -Exudate Type Serosanguineous -Wound Margin Distinct, Outline Attached -Granulation Amt Medium (34-66%) -Granulation [employer] -Slough/Fibrin Yes -Necrosis Amt Medium (34-66%) -Necrotic Tissue Type Adherent Slough -Structure Exposed N/A -Texture (Leyla-wound Skin Appearance) Assessed -Moisture (Leyla-wound Skin Appearance) Assessed -Color (Leyla-wound Skin Appearance) Assessed -Temperature (Leyla-wound Skin No Abnormality Appearance) (Pt Warm) -Tenderness on Palpation (Leyla-wound No Skin Appearance) -Ulcer Cleansing Wound Cleanser -Foul Odor after Cleansing No #15- L HALLUX -Combined with other wound No -Current Size (cm) - Length 0.2 -Current Size (cm) - Width 0.2 -Current Size (cm) - Depth 0.1 -Total Square Cm 0.04 -Photo Taken Yes -Tunneling No -Undermining/Tunneling No -Circular Undermining No -Exudate Amt Medium -Exudate Type Serosanguineous -Wound Margin Distinct, Outline Attached -Granulation Amt Medium (34-66%) -Granulation [employer] -Slough/Fibrin Yes -Necrosis Amt Small (1-33%) -Necrotic Tissue Type Adherent Slough -Structure Exposed N/A -Texture (Leyla-wound Skin Appearance) Assessed -Moisture (Leyla-wound Skin Appearance) Assessed,Dry/ Scaly -Color (Leyla-wound Skin Appearance) Assessed -Temperature (Leyla-wound Skin No Abnormality Appearance) (Pt Warm) -Ulcer Cleansing Wound Cleanser -Foul Odor after Cleansing No #17- L. Ischium -Combined with other wound No No -Current Size (cm) - Length 1.2 0.6 0.1 -Current Size (cm) - Width 1.5 0.6 0.1 -Current Size (cm) - Depth 0.1 0.1 0.1 -Total Square Cm 1.80 0.36 0.01 -Date of Last Picture (Recall this 08/17/24 field) -Photo Taken Yes Yes Yes -Epithelialization Large 67-100% -Tunneling No No -Undermining/Tunneling No No -Circular Undermining No No -Exudate Amt Large Medium Small -Exudate Type Serosanguineous Serosanguineous Serous -Wound Margin Distinct, Distinct, Flat & Intact Outline Outline Attached Attached -Granulation Amt Medium (34-66%) Small (1-33%) -Granulation [employer],Red -Slough/Fibrin Yes -Necrosis Amt Medium (34-66%) None Present (0 %) -Necrotic Tissue Type Adherent Slough -Structure Exposed N/A N/A -Texture (Leyla-wound Skin Appearance) Assessed, Scarring Assessed Scarring -Moisture (Leyla-wound Skin Appearance) Assessed No Abnormality Assessed -Color (Leyla-wound Skin Appearance) Assessed No Abnormality Assessed -Temperature (Leyla-wound Skin No Abnormality No Abnormality No Abnormality Appearance) (Pt Warm) (Pt Warm) (Pt Warm) -Tenderness on Palpation (Leyla-wound No No No Skin Appearance) -Ulcer Cleansing Wound Cleanser Soap and Water Rinsed/ Irrigated with Saline -Foul Odor after Cleansing No No -Anesthetic Used 5% Lidocaine Gel #14 Right Buttock -Combined with other wound No No -Current Size (cm) - Length 3.5 3.5 3 -Current Size (cm) - Width 2 2.5 2 -Current Size (cm) - Depth 1.8 0.1 0.1 -Total Square Cm 7.0 8.75 6 -Date of Last Picture (Recall this 08/17/24 field) -Photo Taken Yes Yes Yes -Epithelialization Small 1-33% -Tunneling No No -Undermining/Tunneling No No -Circular Undermining No No -Exudate Amt Medium Medium Medium -Exudate Type Serosanguineous Serosanguineous Serosanguineous -Wound Margin Distinct, Distinct, Distinct, Outline Outline Outline Attached Attached Attached -Granulation Amt Medium (34-66%) Large (67-100%) Large (67-100%) -Granulation [employer] Red Red -Slough/Fibrin Yes No -Necrosis Amt Medium (34-66%) None Present (0 None Present (0 %) %) -Necrotic Tissue Type Adherent Slough -Structure Exposed N/A N/A -Texture (Leyla-wound Skin Appearance) Assessed, Scarring Assessed Excoriation -Moisture (Leyla-wound Skin Appearance) Assessed No Abnormality Assessed -Color (Leyla-wound Skin Appearance) Assessed No Abnormality Assessed -Temperature (Leyla-wound Skin No Abnormality No Abnormality No Abnormality Appearance) (Pt Warm) (Pt Warm) (Pt Warm) -Tenderness on Palpation (Leyla-wound No No No Skin Appearance) -Ulcer Cleansing Wound Cleanser Soap and Water Rinsed/ Irrigated with Saline -Foul Odor after Cleansing No No No -Anesthetic Used 5% Lidocaine 5% Lidocaine Gel Gel 08/24/24 10:47 Wound Center Nurse 1 *#16 R Buttocks- near anus -Combined with other wound -Current Size (cm) - Length -Current Size (cm) - Width -Current Size (cm) - Depth -Total Square Cm -Photo Taken -Tunneling -Undermining/Tunneling -Circular Undermining -Exudate Amt -Exudate Type -Wound Margin -Granulation Amt -Granulation Quality -Slough/Fibrin -Necrosis Amt -Necrotic Tissue Type -Structure Exposed -Texture (Leyla-wound Skin Appearance) -Moisture (Leyla-wound Skin Appearance) -Color (Leyla-wound Skin Appearance) -Temperature (Leyla-wound Skin Appearance) -Tenderness on Palpation (Leyla-wound Skin Appearance) -Ulcer Cleansing -Foul Odor after Cleansing #15- L HALLUX -Combined with other wound -Current Size (cm) - Length -Current Size (cm) - Width -Current Size (cm) - Depth -Total Square Cm -Photo Taken -Tunneling -Undermining/Tunneling -Circular Undermining -Exudate Amt -Exudate Type -Wound Margin -Granulation Amt -Granulation Quality -Slough/Fibrin -Necrosis Amt -Necrotic Tissue Type -Structure Exposed -Texture (Leyla-wound Skin Appearance) -Moisture (Leyla-wound Skin Appearance) -Color (Leyla-wound Skin Appearance) -Temperature (Leyla-wound Skin Appearance) -Ulcer Cleansing -Foul Odor after Cleansing #17- L. Ischium -Combined with other wound No -Current Size (cm) - Length 0.1 -Current Size (cm) - Width 0.1 -Current Size (cm) - Depth 0.1 -Total Square Cm 0.01 -Date of Last Picture (Recall this field) -Photo Taken Yes -Epithelialization -Tunneling No -Undermining/Tunneling No -Circular Undermining No -Exudate Amt Small -Exudate Type Serosanguineous -Wound Margin Distinct, Outline Attached -Granulation Amt Large (67-100%) -Granulation [employer] -Slough/Fibrin Yes -Necrosis Amt Small (1-33%) -Necrotic Tissue Type Adherent Slough -Structure Exposed N/A -Texture (Leyla-wound Skin Appearance) Assessed, Excoriation -Moisture (Leyla-wound Skin Appearance) Assessed -Color (Leyla-wound Skin Appearance) Assessed -Temperature (Leyla-wound Skin No Abnormality Appearance) (Pt Warm) -Tenderness on Palpation (Leyla-wound No Skin Appearance) -Ulcer Cleansing Wound Cleanser -Foul Odor after Cleansing No -Anesthetic Used 5% Lidocaine Gel #14 Right Buttock -Combined with other wound No -Current Size (cm) - Length 3 -Current Size (cm) - Width 1.5 -Current Size (cm) - Depth 0.5 -Total Square Cm 4.5 -Date of Last Picture (Recall this field) -Photo Taken Yes -Epithelialization -Tunneling No -Undermining/Tunneling No -Circular Undermining No -Exudate Amt Large -Exudate Type Serosanguineous -Wound Margin Thickened & Rolled Under -Granulation Amt Medium (34-66%) -Granulation [employer] -Slough/Fibrin Yes -Necrosis Amt Small (1-33%) -Necrotic Tissue Type Adherent Slough -Structure Exposed N/A -Texture (Leyla-wound Skin Appearance) Assessed -Moisture (Leyla-wound Skin Appearance) Assessed -Color (Leyla-wound Skin Appearance) Assessed -Temperature (Leyla-wound Skin No Abnormality Appearance) (Pt Warm) -Tenderness on Palpation (Leyla-wound No Skin Appearance) -Ulcer Cleansing Wound Cleanser -Foul Odor after Cleansing No -Anesthetic Used 5% Lidocaine Gel WC - Nurse 2 - General Ulcer CM Notes Start: 08/03/24 10:50 Freq: Status: Active Protocol: Activity Type Activity Date Activity User E-sign Co-sign Detail Recorded Client Recorded Date Recorded By Document 08/03/24 11:05 [facility] [id number] 08/03/24 11:13 BM Document 08/10/24 11:15 BM [id number] 08/10/24 11:32 BM Document 08/17/24 11:09 BM [id number] 08/17/24 11:45 BM Document 08/24/24 11:00 BM [id number] 08/24/24 11:16 BMF 08/03/24 08/10/24 08/17/24 11:05 11:15 11:09 Wound Center Nurse 2 *#16 R Buttocks- near anus -Time 11:11 -Procedure Performed No -Post Debridement (cm) - Length 0 -Post Debridement (cm) - Width 0 -Post Debridement (cm) - Depth 0 -Total Square (Post) (cm) 0 -Area of Debridement (cm) - Length 0 -Area of Debridement (cm) - Width 0 -Total Square (Area) (cm) 0 -Wound/Ulcer Outcome Healed- Epithelialized #15- L HALLUX -Time 11:10 -Procedure Performed No -Post Debridement (cm) - Length 0 -Post Debridement (cm) - Width 0 -Post Debridement (cm) - Depth 0 -Total Square (Post) (cm) 0 -Area of Debridement (cm) - Length 0 -Area of Debridement (cm) - Width 0 -Total Square (Area) (cm) 0 -Wound/Ulcer Outcome Healed- Epithelialized #17- L. Ischium -Time 11: 11:15 11:09 -Correct Patient Yes Yes -Correct Side, Site, Position Yes Yes -Correct Procedure Yes Yes -Procedure Performed Yes Yes No -Type of Procedure Debridement Debridement -Clinical Debridement Subcutaneous Subcutaneous -Tissue Removed Subcutaneous Subcutaneous -Post Debridement (cm) - Length 1.3 1 0.1 -Post Debridement (cm) - Width 1 0.5 0.1 -Post Debridement (cm) - Depth 0.1 0.1 0.1 -Total Square (Post) (cm) 1.3 0.5 0.01 -Area of Debridement (cm) - Length 1.3 1 0.1 -Area of Debridement (cm) - Width 1 0.5 0.1 -Total Square (Area) (cm) 1.3 0.5 0.01 -Tunneling No No No -Undermining/Tunneling No No No -Circular Undermining No No No -Wound/Ulcer Outcome Not Healed Not Healed Not Healed -Ulcer Cleansing Rinsed/ Rinsed/ Rinsed/ Irrigated with Irrigated with Irrigated with Saline Saline Saline -Foul Odor after Cleansing No No No -Bioengineered Tissue No No No -Bleeding Controlled with Pressure Pressure NA -Treatment Response Procedure Procedure Tolerated Well Tolerated Well -Debridement - Subq, 1st 20sq cm Yes Yes -Wound Comment(s) #14 Right Buttock -Time 11: 11:16 11:09 -Correct Patient Yes Yes Yes -Correct Side, Site, Position Yes Yes Yes -Correct Procedure Yes Yes Yes -Procedure Performed Yes Yes Yes -Type of Procedure Debridement Debridement Debridement -Clinical Debridement Muscle / Fascia Muscle / Fascia Subcutaneous -Tissue Removed Muscle,Fascia Muscle,Fascia Subcutaneous -Post Debridement (cm) - Length 5 3 3.4 -Post Debridement (cm) - Width 2 2 2 -Post Debridement (cm) - Depth 1.8 0.6 0.1 -Total Square (Post) (cm) 10 6 6.8 -Area of Debridement (cm) - Length 5 3 3.4 -Area of Debridement (cm) - Width 2 2 2 -Total Square (Area) (cm) 10 6 6.8 -Tunneling No No -Undermining/Tunneling No Yes No -Undermining/Tunneling Starts (O'clock 12 ) -Undermining/Tunneling Ends (O'clock) 12 -Maximum Distance (cm) 0.5 -Circular Undermining No No -Wound/Ulcer Outcome Not Healed Not Healed Not Healed -Ulcer Cleansing Rinsed/ Rinsed/ Rinsed/ Irrigated with Irrigated with Irrigated with Saline Saline Saline -Foul Odor after Cleansing No No No -Bioengineered Tissue No Yes Yes -Type of Bioengineered Tissue Epifix Mesh Epifix Mesh -Expiration Date 01/02/29 02/01/29 -Product Lot Number [id number] -Percent Used 100 100 -Lot number of Saline Used [id number] -Bleeding Controlled with Pressure Pressure Pressure -Treatment Response Procedure Procedure Procedure Tolerated Well Tolerated Well Tolerated Well -Debridement - Subq, 1st 20sq cm No -Debridement - Muscle / Fascia, 1st Yes No 20sq cm -Apply Skin Sub - 1st 25 sq cm - Legs 1 1 -Apply Skin Sub - each addt'l 25 sq cm - Legs -Epifix Mesh Application 1-4 (per sq 11 11 cm) -Wound Comment(s) Pain Scale: 0-10 Numeric Is Patient Pain Free? Yes Yes Yes 08/24/24 11:00 Wound Center Nurse 2 *#16 R Buttocks- near anus -Time -Procedure Performed -Post Debridement (cm) - Length -Post Debridement (cm) - Width -Post Debridement (cm) - Depth -Total Square (Post) (cm) -Area of Debridement (cm) - Length -Area of Debridement (cm) - Width -Total Square (Area) (cm) -Wound/Ulcer Outcome #15- L HALLUX -Time -Procedure Performed -Post Debridement (cm) - Length -Post Debridement (cm) - Width -Post Debridement (cm) - Depth -Total Square (Post) (cm) -Area of Debridement (cm) - Length -Area of Debridement (cm) - Width -Total Square (Area) (cm) -Wound/Ulcer Outcome #17- L. Ischium -Time -Correct Patient -Correct Side, Site, Position -Correct Procedure -Procedure Performed No -Type of Procedure -Clinical Debridement -Tissue Removed -Post Debridement (cm) - Length 0.1 -Post Debridement (cm) - Width 0.1 -Post Debridement (cm) - Depth 0.1 -Total Square (Post) (cm) 0.01 -Area of Debridement (cm) - Length 0.1 -Area of Debridement (cm) - Width 0.1 -Total Square (Area) (cm) 0.01 -Tunneling -Undermining/Tunneling -Circular Undermining -Wound/Ulcer Outcome Not Healed -Ulcer Cleansing -Foul Odor after Cleansing -Bioengineered Tissue -Bleeding Controlled with NA -Treatment Response -Debridement - Subq, 1st 20sq cm -Wound Comment(s) continue to monitor #14 Right Buttock -Time 11:00 -Correct Patient Yes -Correct Side, Site, Position Yes -Correct Procedure Yes -Procedure Performed Yes -Type of Procedure Debridement -Clinical Debridement Subcutaneous -Tissue Removed Subcutaneous -Post Debridement (cm) - Length 4 -Post Debridement (cm) - Width 1.6 -Post Debridement (cm) - Depth 0.1 -Total Square (Post) (cm) 6.4 -Area of Debridement (cm) - Length 4 -Area of Debridement (cm) - Width 1.6 -Total Square (Area) (cm) 6.4 -Tunneling No -Undermining/Tunneling No -Undermining/Tunneling Starts (O'clock ) -Undermining/Tunneling Ends (O'clock) -Maximum Distance (cm) -Circular Undermining No -Wound/Ulcer Outcome Not Healed -Ulcer Cleansing Rinsed/ Irrigated with Saline -Foul Odor after Cleansing No -Bioengineered Tissue Yes -Type of Bioengineered Tissue Epifix Mesh -Expiration Date 02/01/29 -Product Lot Number [id number] -Percent Used 100 -Lot number of Saline Used [id number] -Bleeding Controlled with Pressure,Silver Nitrate -Treatment Response Procedure Tolerated Well -Debridement - Subq, 1st 20sq cm No -Debridement - Muscle / Fascia, 1st 20sq cm -Apply Skin Sub - 1st 25 sq cm - Legs -Apply Skin Sub - each addt'l 25 sq cm 1 - Legs -Epifix Mesh Application 1-4 (per sq 11 cm) -Wound Comment(s) silver nitrate for hypergranulatio n Pain Scale: 0-10 Numeric Is Patient Pain Free? Yes WC - Nurse 3 - General Ulcer D/C NN Start: 08/03/24 10:50 Freq: Status: Active Protocol: Activity Type Activity Date Activity User E-sign Co-sign Detail Recorded Client Recorded Date Recorded By Document 08/03/24 11:24 RB [id number] 08/03/24 11:29 RB Document 08/10/24 11:40 RB [id number] 08/10/24 11:42 RB Document 08/17/24 12:02 RB [id number] 08/17/24 12:04 RB Document 08/24/24 11:26 MT [id number] 08/24/24 11:40 MT 08/03/24 08/10/24 08/17/24 11:24 11:40 12:02 Wound Care Center Nurse 3 #17- L. Ischium -Ulcer Cleansing Wound Cleanser Rinsed/ Irrigated with Saline -Primary Dressing Applied Aquacel Extra, Aquacel Extra, Silicone Border Silicone Border Silicone Border Foam 4x4 Foam 4x4, Foam 4x4, Silicone Border Silicone Border Foam 6x6 Foam 6x6 -Aquacel Extra 1 1 -Silicone Border Foam 4x4 1 1 2 -Silicone Border Foam 6x6 1 1 -Wound Comment(s) 4x4 silicone R HALLUX PAD pad in protect border dressing AND PROTECR left hallux to left hallux WITH MEPILEX #14 Right Buttock -Ulcer Cleansing Wound Cleanser -Negative Pressure Wound Therapy Continue Continue -Pieces of White Foam Inserted 150 125 -Pieces of Black Foam Inserted 1 1 -NPWT Application Charge NPWT & NPWT & Debridement (nc Debridement (nc ) ) -Primary Dressing Applied Silicone Border Foam 6x6 -Primary Dressing Covered/Secured with Dry Gauze -Silicone Border Foam 6x6 1 [facility]ound [facility] Bar[facility] Treatment Response Procedure Procedure Tolerated Well Tolerated Well Pain Scale: 0-10 Numeric Is Patient Pain Free? Yes Yes Yes WC - Visit Discharge Discharge Condition Stable Stable Stable Ambulatory Status Wheelchair Wheelchair Wheelchair Transportation [facility] transport Medication Reconcilliation completed & No No No provided to patient/care provider Clinical Summary of Care Provided Yes Yes Yes 08/24/24 11:26 Wound Care Center Nurse 3 #17- L. Ischium -Ulcer Cleansing -Primary Dressing Applied Silicone Border Foam 4x4 -Aquacel Extra -Silicone Border Foam 4x4 2 -Silicone Border Foam 6x6 -Wound Comment(s) #14 Right Buttock -Ulcer Cleansing -Negative Pressure Wound Therapy -Pieces of White Foam Inserted -Pieces of Black Foam Inserted -NPWT Application Charge -Primary Dressing Applied -Primary Dressing Covered/Secured with -Silicone Border Foam 6x6 [facility]-Wound Care Treatment Response Pain Scale: 0-10 Numeric Is Patient Pain Free? Yes WC - Visit Discharge Discharge Condition Ambulatory Status Transportation Medication Reconcilliation completed & provided to patient/care provider Clinical Summary of Care Provided Additional Wound Wound Grade/Stage: Stage III Assessment/Plan Assessment/Plan (1) Decubitus ulcer of sacral region, stage 2: CODE(S): L89.152 - Pressure ulcer of sacral region, stage 2 PLAN: Wound resolved and patient is to just sure prep pad and protect (2) Decubitus ulcer of toe, stage 2: CODE(S): L89.892 - Pressure ulcer of other site, stage 2 QUALIFIERS: Laterality: left Qualified Code(s): L89.892 - Pressure ulcer of other site, stage 2 PLAN: Resolved and needs to use your prep and padded and protect patient wears a postop shoe on that foot with a sock underneath. (3) Chronic anemia: CODE(S): D64.9 - Anemia, unspecified PLAN: Continue ferrous sulfate 325 mg to twice a day with stool softeners B12 injections 1000 mcg q. weekly Improved immensely she said at normal rate at this time (4) Decubitus ulcer of right buttock, stage 4: CODE(S): L89.314 - Pressure ulcer of right buttock, stage 4 PLAN: Epi #4 was applied to the outside and inside of the decubitus ulcer Low air overlays to arrive today or tomorrow Follow-up in 1 week Patient is to continue offloading and local using a low air mattress on bed that she has (5) Skin ulcer of left great toe: CODE(S): L97.529 - Non-pressure chronic ulcer of other part of left foot with unspecified severity QUALIFIERS: Non-pressure ulcer stage: limited to breakdown of skin Qualified Code(s): L97.521 - Non-pressure chronic ulcer of other part of left foot limited to breakdown of skin (6) Decubitus ulcer of left ischium, stage 2: CODE(S): L89.322 - Pressure ulcer of left buttock, stage 2 PLAN: Wash area with antibacterial soap and water and apply sure prep and padded dressing. (7) Ulcer of anus: CODE(S): K62.6 - Ulcer of anus and rectum PLAN: Skin-Prep to area 2-3 times a day
--- NOTE | 2024-08-25 09:07 | WC ---
PHOTO 08/24/24 LEFT HALLUX
--- NOTE | 2024-08-25 09:24 | WC ---
PHOTO 08/24/24 LEFT BUTTOCK
--- NOTE | 2024-08-25 09:25 | WC ---
PHOTO 08/24/24 RIGHT BUTTOCK
[2024-08-31 10:34] VITALS: BP 133/73; PULSE 65; RESP 18; TEMP 36.6; BMI 16.9
--- NOTE | 2024-08-31 11:18 | PN.PCM_ITS ---
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 Patient underwent treatment for colitis as an inpatient in March 2024 and developed a right ischial pressure ulcer. It was debrided twice at [facility]. She has been following for wound care with a nurse practitioner in the wound care center, who referred her to me for second opinion to see if she needs surgery. Patient lives at home in an apartment usually by herself. She does not have a pressure offloading bed. She is quite high functioning; however, she is currently in a nursing facility for wound care ever since the recent hospital admission. 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 She has an adult daughter in [place] and an adult daughter here in [place] who are both very involved and supportive. Progress of Wound: Today the right buttocks is hypergranulating and we are not can use the EpiFix this week but do a vacation week. We are going to try just putting Promogran in there and see if that finishes it gets the top layer. She is hyper granulated a gain. So we will recheck next week and see if she we should fill in with them EpiFix. The left ischium is healed with scalloped thin coverage or it is very fragile so we will continue to use your prep and pad and protect Left toe same thing will she complains that she thinks that the bandage is sticking to the wound and pulling it up the skin the new skin. So we will sure prep then gauze and then the padded dressing over top. Otherwise she looks healthy and is doing well Subjective Subjective Patient is very pleased with outcomes Objective Data Objective Data No sign of infection we will continue same treatments except for the epi fix organ to hold on that and go back to like a Promogran dressing in there and see if we can get that to clean up and top out without using EpiFix. Vital Signs: Vital Signs Temp Pulse Resp BP 97.8 F 65 18 133/73 H 08/31/24 10:34 08/31/24 10:34 08/31/24 10:34 08/31/24 10:34 Weight: 89 lb 6.4 oz Body Mass Index (BMI) 16.9 Lab / Micro Data Attestation: I reviewed the patient's lab results. Physical Exam Const oriented x3 General Appearance: cooperative Orientation / Consciousness: oriented to person, oriented to place and oriented to time Exam Limitations: no limitations Nutritional Appearance: cachectic, underweight and thin HEENT normocephalic Head and Scalp: normal to inspection External Ear: external ears normal Eyes PERRL General Eye: normal appearance of both eyes Neck full ROM General: normal visual inspection Resp normal respiratory effort Effort and Inspection: able to speak in complete sentences Auscultation: clear to auscultation bilaterally Cardio regular rate and regular rhythm Palpation: normal PMI Rate: regular rate Rhythm: regular rhythm GI Rectal Exam: visual inspection abnormal, fistula and other Other Details: Open wound left buttocks and perirectal may be fistula going on. Back/Spine Back/Spine Narrative: Paralysis from waist down Cervical Spine: cervical ROM normal Pelvis: buttocks abnormal right and other soft tissue findings Wound on her coccyx area Skin no rashes or lesions noted Skin Narrative: Open wounds on left buttocks with positive depth and infection possible sepsis sacral area open area nonhealing and perirectal area possibly a fistula. Wounds: wounds noted Wound Narrative: Open wound on coccyx stage II Right buttocks wound stage IV Neuro oriented x3 Psych Appearance: grossly normal Attitude: calm Activity / Motor Behavior: appropriate eye contact Speech: normal speech Mood & Affect: euthymic mood Thought Process: normal thought process Thought Content: normal thought content Attention / Concentration: attention grossly intact Memory / Cognition: memory grossly intact Insight: insight good Judgement: judgement good Debridement Note Debridement Note Wound debrided: Right buttocks Laterality: Right Wound Grade/Stage: Stage IV Type of Debridement: Selective debridement Anesthesia Used: 5% Lidocaine Gel Depth: in the subcutaneous layer Percentage of wound debrided: 100 Instrument Used: 5mm curette Tissue Removed: Fibrin Severity: Fat Layer Exposed Amount of bleeding with debridement: Mild Bleeding Controlled with: Compression and gauze Patient tolerated procedure: Patient tolerated procedure well Post-Debridement Measurements and Additional Note: Post-Debridement Measurements/Treatment WC - Nurse 1 - General Ulcer Assessment Start: 08/03/24 10:50 Freq: Status: Active Protocol: JOSEPHINE Activity Type Activity Date Activity User E-sign Co-sign Detail Recorded Client Recorded Date Recorded By Document 08/03/24 10:50 RB [id number] 08/03/24 10:57 RB Document 08/10/24 10:51 DL [id number] 08/10/24 11:06 DL Document 08/17/24 10:47 DL [id number] 08/17/24 11:01 DL Document 08/24/24 10:47 RB [id number] 08/24/24 10:50 RB Document 08/31/24 10:34 DL [id number] 08/31/24 10:46 DL 08/03/24 08/10/24 08/17/24 10:50 10:51 10:47 - Today's Visit Information Type of service Follow-up Visit Follow-up Visit Follow-up Visit (Physician/MANUAL MACHINIST (Physician/MANUAL MACHINIST (Physician/MANUAL MACHINIST ) ) ) Arrival Mode Wheelchair Wheelchair Wheelchair Transfer Assistance Manual Manual Manual Transfer Assist (Other) x2 x2 Patient Identification Verified (Name & Yes Yes Yes ) Patient Requires Transmission-Based No No No Precautions Height and Weight Body Mass Index (BMI) 16.9 16.9 16.9 BMI Classification Underweight Underweight Underweight Vital Signs Temperature (97.8 F-99.1 F) 96.8 F L 97.5 F L 96.5 F L Temperature Source Temporal Temporal Temporal Pulse Rate (60-100) 69 64 76 Pulse Location Monitor Monitor Monitor Respiratory Rate (12-18) 18 18 18 Respiratory rate source Observation Observation Blood Pressure (90/60-120/80) 133/65 H 143/71 H 122/73 H Blood Pressure Mean (mm Hg) 87 95 89 Source Monitor Monitor Monitor Position Semi-Fowlers Blood Pressure Location Left Arm History Since Last Visit- (Skip if this is Patient's initial visit) Have you changed medications since your No No No last visit? Any new allergies or adverse reactions No No No Had a fall/change in ADL's that may No No No increase risk of falls Signs or symptoms of abuse and/or No No No neglect since last visit Have you been in the hospital since your No No No last visit? Has dressing in place as prescribed Yes Yes Yes Has compression in place as prescribed N/A N/A N/A Has offloadiing in place as prescribed Yes Yes Yes Experienced any changes in pain level or No No No management Pain Scale: 0-10 Numeric Is Patient Pain Free? Yes Yes Yes 08/24/24 08/31/24 10:47 10:34 - Today's Visit Information Type of service Follow-up Visit Follow-up Visit (Physician/MANUAL MACHINIST (Physician/MANUAL MACHINIST ) ) Arrival Mode Ambulatory Wheelchair Transfer Assistance None Manual Transfer Assist (Other) x1 Patient Identification Verified (Name & Yes Yes ) Patient Requires Transmission-Based No No Precautions Height and Weight Body Mass Index (BMI) 16.9 16.9 BMI Classification Underweight Underweight Vital Signs Temperature (97.8 F-99.1 F) 97.2 F L 97.8 F Temperature Source Temporal Temporal Pulse Rate (60-100) 82 65 Pulse Location Monitor Monitor Respiratory Rate (12-18) 18 18 Respiratory rate source Observation Observation Blood Pressure (90/60-120/80) 164/92 H 133/73 H Blood Pressure Mean (mm Hg) 116 93 Source Monitor Monitor Position Semi-Fowlers Blood Pressure Location Left Arm History Since Last Visit- (Skip if this is Patient's initial visit) Have you changed medications since your No No last visit? Any new allergies or adverse reactions No No Had a fall/change in ADL's that may No No increase risk of falls Signs or symptoms of abuse and/or No No neglect since last visit Have you been in the hospital since your No No last visit? Has dressing in place as prescribed Yes No Has compression in place as prescribed N/A N/A Has offloadiing in place as prescribed Yes Yes Experienced any changes in pain level or No No management Pain Scale: 0-10 Numeric Is Patient Pain Free? Yes Yes - Nurse 1 - General Ulcer Measurement Start: 08/03/24 10:50 Freq: Status: Active Protocol: Activity Type Activity Date Activity User E-sign Co-sign Detail Recorded Client Recorded Date Recorded By Document 08/03/24 10:50 RB [id number] 08/03/24 10:57 RB Document 08/10/24 10:51 DL [id number] 08/10/24 11:06 DL Document 08/17/24 10:47 DL [id number] 08/17/24 11:01 DL Document 08/24/24 10:47 RB [id number] 08/24/24 10:50 RB Document 08/31/24 10:34 DL [id number] 08/31/24 10:46 DL 08/03/24 08/10/24 08/17/24 10:50 10:51 10:47 Wound Center Nurse 1 *#16 R Buttocks- near anus -Combined with other wound No -Current Size (cm) - Length 0.1 -Current Size (cm) - Width 0.1 -Current Size (cm) - Depth 0.1 -Total Square Cm 0.01 -Photo Taken Yes -Tunneling No -Undermining/Tunneling No -Circular Undermining No -Exudate Amt Small -Exudate Type Serosanguineous -Wound Margin Distinct, Outline Attached -Granulation Amt Medium (34-66%) -Granulation Quality [place] -Slough/Fibrin Yes -Necrosis Amt Medium (34-66%) -Necrotic Tissue Type Adherent Slough -Structure Exposed N/A -Texture (Leyla-wound Skin Appearance) Assessed -Moisture (Leyla-wound Skin Appearance) Assessed -Color (Leyla-wound Skin Appearance) Assessed -Temperature (Leyla-wound Skin No Abnormality Appearance) (Pt Warm) -Tenderness on Palpation (Leyla-wound No Skin Appearance) -Ulcer Cleansing Wound Cleanser -Foul Odor after Cleansing No #15- L HALLUX -Combined with other wound No -Current Size (cm) - Length 0.2 -Current Size (cm) - Width 0.2 -Current Size (cm) - Depth 0.1 -Total Square Cm 0.04 -Photo Taken Yes -Tunneling No -Undermining/Tunneling No -Circular Undermining No -Exudate Amt Medium -Exudate Type Serosanguineous -Wound Margin Distinct, Outline Attached -Granulation Amt Medium (34-66%) -Granulation Quality [place] -Slough/Fibrin Yes -Necrosis Amt Small (1-33%) -Necrotic Tissue Type Adherent Slough -Structure Exposed N/A -Texture (Leyla-wound Skin Appearance) Assessed -Moisture (Leyla-wound Skin Appearance) Assessed,Dry/ Scaly -Color (Leyla-wound Skin Appearance) Assessed -Temperature (Leyla-wound Skin No Abnormality Appearance) (Pt Warm) -Ulcer Cleansing Wound Cleanser -Foul Odor after Cleansing No 318 L Grt Toe -Current Size (cm) - Length -Current Size (cm) - Width -Current Size (cm) - Depth -Total Square Cm -Photo Taken -Classification - Thickness -Exudate Amt -Exudate Type -Wound Margin -Granulation Amt -Granulation Quality -Necrosis Amt -Necrotic Tissue Type -Structure Exposed -Moisture (Leyla-wound Skin Appearance) -Color (Leyla-wound Skin Appearance) -Temperature (Leyla-wound Skin Appearance) -Tenderness on Palpation (Leyla-wound Skin Appearance) -Ulcer Cleansing -Foul Odor after Cleansing -Anesthetic Used #17- L. Ischium -Combined with other wound No No -Current Size (cm) - Length 1.2 0.6 0.1 -Current Size (cm) - Width 1.5 0.6 0.1 -Current Size (cm) - Depth 0.1 0.1 0.1 -Total Square Cm 1.80 0.36 0.01 -Date of Last Picture (Recall this 08/17/24 field) -Photo Taken Yes Yes Yes -Epithelialization Large 67-100% -Tunneling No No -Undermining/Tunneling No No -Circular Undermining No No -Exudate Amt Large Medium Small -Exudate Type Serosanguineous Serosanguineous Serous -Wound Margin Distinct, Distinct, Flat & Intact Outline Outline Attached Attached -Granulation Amt Medium (34-66%) Small (1-33%) -Granulation Quality [place],Red -Slough/Fibrin Yes -Necrosis Amt Medium (34-66%) None Present (0 %) -Necrotic Tissue Type Adherent Slough -Structure Exposed N/A N/A -Texture (Leyla-wound Skin Appearance) Assessed, Scarring Assessed Scarring -Moisture (Leyla-wound Skin Appearance) Assessed No Abnormality Assessed -Color (Leyla-wound Skin Appearance) Assessed No Abnormality Assessed -Temperature (Leyla-wound Skin No Abnormality No Abnormality No Abnormality Appearance) (Pt Warm) (Pt Warm) (Pt Warm) -Tenderness on Palpation (Leyla-wound No No No Skin Appearance) -Ulcer Cleansing Wound Cleanser Soap and Water Rinsed/ Irrigated with Saline -Foul Odor after Cleansing No No -Anesthetic Used 5% Lidocaine Gel #14 Right Buttock -Combined with other wound No No -Current Size (cm) - Length 3.5 3.5 3 -Current Size (cm) - Width 2 2.5 2 -Current Size (cm) - Depth 1.8 0.1 0.1 -Total Square Cm 7.0 8.75 6 -Date of Last Picture (Recall this 08/17/24 field) -Photo Taken Yes Yes Yes -Epithelialization Small 1-33% -Tunneling No No -Undermining/Tunneling No No -Circular Undermining No No -Exudate Amt Medium Medium Medium -Exudate Type Serosanguineous Serosanguineous Serosanguineous -Wound Margin Distinct, Distinct, Distinct, Outline Outline Outline Attached Attached Attached -Granulation Amt Medium (34-66%) Large (67-100%) Large (67-100%) -Granulation Quality [place] Red Red -Slough/Fibrin Yes No -Necrosis Amt Medium (34-66%) None Present (0 None Present (0 %) %) -Necrotic Tissue Type Adherent Slough -Structure Exposed N/A N/A -Texture (Leyla-wound Skin Appearance) Assessed, Scarring Assessed Excoriation -Moisture (Leyla-wound Skin Appearance) Assessed No Abnormality Assessed -Color (Leyla-wound Skin Appearance) Assessed No Abnormality Assessed -Temperature (Leyla-wound Skin No Abnormality No Abnormality No Abnormality Appearance) (Pt Warm) (Pt Warm) (Pt Warm) -Tenderness on Palpation (Leyla-wound No No No Skin Appearance) -Ulcer Cleansing Wound Cleanser Soap and Water Rinsed/ Irrigated with Saline -Foul Odor after Cleansing No No No -Anesthetic Used 5% Lidocaine 5% Lidocaine Gel Gel 08/24/24 08/31/24 10:47 10:34 Wound Center Nurse 1 *#16 R Buttocks- near anus -Combined with other wound -Current Size (cm) - Length -Current Size (cm) - Width -Current Size (cm) - Depth -Total Square Cm -Photo Taken -Tunneling -Undermining/Tunneling -Circular Undermining -Exudate Amt -Exudate Type -Wound Margin -Granulation Amt -Granulation Quality -Slough/Fibrin -Necrosis Amt -Necrotic Tissue Type -Structure Exposed -Texture (Leyla-wound Skin Appearance) -Moisture (Leyla-wound Skin Appearance) -Color (Leyla-wound Skin Appearance) -Temperature (Leyla-wound Skin Appearance) -Tenderness on Palpation (Leyla-wound Skin Appearance) -Ulcer Cleansing -Foul Odor after Cleansing #15- L HALLUX -Combined with other wound -Current Size (cm) - Length -Current Size (cm) - Width -Current Size (cm) - Depth -Total Square Cm -Photo Taken -Tunneling -Undermining/Tunneling -Circular Undermining -Exudate Amt -Exudate Type -Wound Margin -Granulation Amt -Granulation Quality -Slough/Fibrin -Necrosis Amt -Necrotic Tissue Type -Structure Exposed -Texture (Leyla-wound Skin Appearance) -Moisture (Leyla-wound Skin Appearance) -Color (Leyla-wound Skin Appearance) -Temperature (Leyla-wound Skin Appearance) -Ulcer Cleansing -Foul Odor after Cleansing 318 L Grt Toe -Current Size (cm) - Length 0.3 -Current Size (cm) - Width 0.2 -Current Size (cm) - Depth 0.1 -Total Square Cm 0.06 -Photo Taken Yes -Classification - Thickness Partial Thickness -Exudate Amt Small -Exudate Type Serosanguineous -Wound Margin Distinct, Outline Attached -Granulation Amt Small (1-33%) -Granulation Quality [place] -Necrosis Amt Small (1-33%) -Necrotic Tissue Type Adherent Slough -Structure Exposed N/A -Moisture (Leyla-wound Skin Appearance) Dry/Scaly -Color (Leyla-wound Skin Appearance) No Abnormality -Temperature (Leyla-wound Skin No Abnormality Appearance) (Pt Warm) -Tenderness on Palpation (Leyla-wound No Skin Appearance) -Ulcer Cleansing Rinsed/ Irrigated with Saline -Foul Odor after Cleansing No -Anesthetic Used 5% Lidocaine Gel #17- L. Ischium -Combined with other wound No -Current Size (cm) - Length 0.1 0.1 -Current Size (cm) - Width 0.1 0.1 -Current Size (cm) - Depth 0.1 0.1 -Total Square Cm 0.01 0.01 -Date of Last Picture (Recall this field) -Photo Taken Yes -Epithelialization -Tunneling No -Undermining/Tunneling No -Circular Undermining No -Exudate Amt Small None Present -Exudate Type Serosanguineous -Wound Margin Distinct, Flat & Intact Outline Attached -Granulation Amt Large (67-100%) Small (1-33%) -Granulation Quality [place] -Slough/Fibrin Yes -Necrosis Amt Small (1-33%) None Present (0 %) -Necrotic Tissue Type Adherent Slough -Structure Exposed N/A N/A -Texture (Leyla-wound Skin Appearance) Assessed, Scarring Excoriation -Moisture (Leyla-wound Skin Appearance) Assessed No Abnormality -Color (Leyla-wound Skin Appearance) Assessed No Abnormality -Temperature (Leyla-wound Skin No Abnormality No Abnormality Appearance) (Pt Warm) (Pt Warm) -Tenderness on Palpation (Leyla-wound No Skin Appearance) -Ulcer Cleansing Wound Cleanser Rinsed/ Irrigated with Saline -Foul Odor after Cleansing No No -Anesthetic Used 5% Lidocaine Gel #14 Right Buttock -Combined with other wound No -Current Size (cm) - Length 3 2.8 -Current Size (cm) - Width 1.5 1.1 -Current Size (cm) - Depth 0.5 0.1 -Total Square Cm 4.5 3.08 -Date of Last Picture (Recall this field) -Photo Taken Yes -Epithelialization -Tunneling No -Undermining/Tunneling No -Circular Undermining No -Exudate Amt Large Medium -Exudate Type Serosanguineous Serosanguineous -Wound Margin Thickened & Distinct, Rolled Under Outline Attached -Granulation Amt Medium (34-66%) Large (67-100%) -Granulation Quality [place] Hyper- granulation, Pale,[place] -Slough/Fibrin Yes -Necrosis Amt Small (1-33%) Small (1-33%) -Necrotic Tissue Type Adherent Slough Adherent Slough -Structure Exposed N/A N/A -Texture (Leyla-wound Skin Appearance) Assessed Scarring -Moisture (Leyla-wound Skin Appearance) Assessed No Abnormality -Color (Leyla-wound Skin Appearance) Assessed No Abnormality -Temperature (Leyla-wound Skin No Abnormality No Abnormality Appearance) (Pt Warm) (Pt Warm) -Tenderness on Palpation (Leyla-wound No No Skin Appearance) -Ulcer Cleansing Wound Cleanser Rinsed/ Irrigated with Saline -Foul Odor after Cleansing No No -Anesthetic Used 5% Lidocaine 5% Lidocaine Gel Gel WC - Nurse 2 - General Ulcer CM Notes Start: 08/03/24 10:50 Freq: Status: Active Protocol: Activity Type Activity Date Activity User E-sign Co-sign Detail Recorded Client Recorded Date Recorded By Document 08/03/24 11:05 [facility] [id number] 08/03/24 11:13 BM Document 08/10/24 11:15 [facility] [id number] 08/10/24 11:32 [facility] Document 08/17/24 11:09 BM [id number] 08/17/24 11:45 [facility] Document 08/24/24 11:00 [facility] [id number] 08/24/24 11:16 [facility] Document 08/31/24 10:51 [facility] [id number] 08/31/24 10:57 [facility] 08/03/24 08/10/24 08/17/24 11:05 11:15 11:09 Wound Center Nurse 2 *#16 R Buttocks- near anus -Time 11:11 -Procedure Performed No -Post Debridement (cm) - Length 0 -Post Debridement (cm) - Width 0 -Post Debridement (cm) - Depth 0 -Total Square (Post) (cm) 0 -Area of Debridement (cm) - Length 0 -Area of Debridement (cm) - Width 0 -Total Square (Area) (cm) 0 -Wound/Ulcer Outcome Healed- Epithelialized #15- L HALLUX -Time 11:10 -Procedure Performed No -Post Debridement (cm) - Length 0 -Post Debridement (cm) - Width 0 -Post Debridement (cm) - Depth 0 -Total Square (Post) (cm) 0 -Area of Debridement (cm) - Length 0 -Area of Debridement (cm) - Width 0 -Total Square (Area) (cm) 0 -Wound/Ulcer Outcome Healed- Epithelialized 318 L Grt Toe -Time -Procedure Performed -Post Debridement (cm) - Length -Post Debridement (cm) - Width -Post Debridement (cm) - Depth -Total Square (Post) (cm) -Area of Debridement (cm) - Length -Area of Debridement (cm) - Width -Total Square (Area) (cm) -Wound/Ulcer Outcome -Bleeding Controlled with #17- L. Ischium -Time 11:09 11:15 11:09 -Correct Patient Yes Yes -Correct Side, Site, Position Yes Yes -Correct Procedure Yes Yes -Procedure Performed Yes Yes No -Type of Procedure Debridement Debridement -Clinical Debridement Subcutaneous Subcutaneous -Tissue Removed Subcutaneous Subcutaneous -Post Debridement (cm) - Length 1.3 1 0.1 -Post Debridement (cm) - Width 1 0.5 0.1 -Post Debridement (cm) - Depth 0.1 0.1 0.1 -Total Square (Post) (cm) 1.3 0.5 0.01 -Area of Debridement (cm) - Length 1.3 1 0.1 -Area of Debridement (cm) - Width 1 0.5 0.1 -Total Square (Area) (cm) 1.3 0.5 0.01 -Tunneling No No No -Undermining/Tunneling No No No -Circular Undermining No No No -Wound/Ulcer Outcome Not Healed Not Healed Not Healed -Ulcer Cleansing Rinsed/ Rinsed/ Rinsed/ Irrigated with Irrigated with Irrigated with Saline Saline Saline -Foul Odor after Cleansing No No No -Bioengineered Tissue No No No -Bleeding Controlled with Pressure Pressure NA -Treatment Response Procedure Procedure Tolerated Well Tolerated Well -Debridement - Subq, 1st 20sq cm Yes Yes -Wound Comment(s) #14 Right Buttock -Time 11:05 11:16 11:09 -Correct Patient Yes Yes Yes -Correct Side, Site, Position Yes Yes Yes -Correct Procedure Yes Yes Yes -Procedure Performed Yes Yes Yes -Type of Procedure Debridement Debridement Debridement -Clinical Debridement Muscle / Fascia Muscle / Fascia Subcutaneous -Tissue Removed Muscle,Fascia Muscle,Fascia Subcutaneous -Post Debridement (cm) - Length 5 3 3.4 -Post Debridement (cm) - Width 2 2 2 -Post Debridement (cm) - Depth 1.8 0.6 0.1 -Total Square (Post) (cm) 10 6 6.8 -Area of Debridement (cm) - Length 5 3 3.4 -Area of Debridement (cm) - Width 2 2 2 -Total Square (Area) (cm) 10 6 6.8 -Tunneling No No -Undermining/Tunneling No Yes No -Undermining/Tunneling Starts (O'clock 12 ) -Undermining/Tunneling Ends (O'clock) 12 -Maximum Distance (cm) 0.5 -Circular Undermining No No -Wound/Ulcer Outcome Not Healed Not Healed Not Healed -Ulcer Cleansing Rinsed/ Rinsed/ Rinsed/ Irrigated with Irrigated with Irrigated with Saline Saline Saline -Foul Odor after Cleansing No No No -Bioengineered Tissue No Yes Yes -Type of Bioengineered Tissue Epifix Mesh Epifix Mesh -Expiration Date 01/02/29 02/01/29 -Product Lot Number [id number] -Percent Used 100 100 -Lot number of Saline Used [id number] -Bleeding Controlled with Pressure Pressure Pressure -Treatment Response Procedure Procedure Procedure Tolerated Well Tolerated Well Tolerated Well -Debridement - Subq, 1st 20sq cm No -Debridement - Muscle / Fascia, 1st Yes No 20sq cm -Apply Skin Sub - 1st 25 sq cm - Legs 1 1 -Apply Skin Sub - each addt'l 25 sq cm - Legs -Epifix Mesh Application 1-4 (per sq 11 11 cm) -Wound Comment(s) Pain Scale: 0-10 Numeric Is Patient Pain Free? Yes Yes Yes 08/24/24 08/31/24 11:00 10:51 Wound Center Nurse 2 *#16 R Buttocks- near anus -Time -Procedure Performed -Post Debridement (cm) - Length -Post Debridement (cm) - Width -Post Debridement (cm) - Depth -Total Square (Post) (cm) -Area of Debridement (cm) - Length -Area of Debridement (cm) - Width -Total Square (Area) (cm) -Wound/Ulcer Outcome #15- L HALLUX -Time -Procedure Performed -Post Debridement (cm) - Length -Post Debridement (cm) - Width -Post Debridement (cm) - Depth -Total Square (Post) (cm) -Area of Debridement (cm) - Length -Area of Debridement (cm) - Width -Total Square (Area) (cm) -Wound/Ulcer Outcome 318 L Grt Toe -Time 10:55 -Procedure Performed No -Post Debridement (cm) - Length 0.1 -Post Debridement (cm) - Width 0.1 -Post Debridement (cm) - Depth 0.1 -Total Square (Post) (cm) 0.01 -Area of Debridement (cm) - Length 0.1 -Area of Debridement (cm) - Width 0.1 -Total Square (Area) (cm) 0.01 -Wound/Ulcer Outcome Not Healed -Bleeding Controlled with NA #17- L. Ischium -Time 10:56 -Correct Patient -Correct Side, Site, Position -Correct Procedure -Procedure Performed No No -Type of Procedure -Clinical Debridement -Tissue Removed -Post Debridement (cm) - Length 0.1 0.1 -Post Debridement (cm) - Width 0.1 0.1 -Post Debridement (cm) - Depth 0.1 0.1 -Total Square (Post) (cm) 0.01 0.01 -Area of Debridement (cm) - Length 0.1 0.1 -Area of Debridement (cm) - Width 0.1 0.1 -Total Square (Area) (cm) 0.01 0.01 -Tunneling -Undermining/Tunneling -Circular Undermining -Wound/Ulcer Outcome Not Healed Not Healed -Ulcer Cleansing -Foul Odor after Cleansing -Bioengineered Tissue -Bleeding Controlled with NA NA -Treatment Response -Debridement - Subq, 1st 20sq cm -Wound Comment(s) continue to monitor #14 Right Buttock -Time 11:00 10:52 -Correct Patient Yes -Correct Side, Site, Position Yes -Correct Procedure Yes -Procedure Performed Yes No -Type of Procedure Debridement -Clinical Debridement Subcutaneous -Tissue Removed Subcutaneous -Post Debridement (cm) - Length 4 3 -Post Debridement (cm) - Width 1.6 2 -Post Debridement (cm) - Depth 0.1 0.1 -Total Square (Post) (cm) 6.4 6 -Area of Debridement (cm) - Length 4 3 -Area of Debridement (cm) - Width 1.6 2 -Total Square (Area) (cm) 6.4 6 -Tunneling No No -Undermining/Tunneling No No -Undermining/Tunneling Starts (O'clock ) -Undermining/Tunneling Ends (O'clock) -Maximum Distance (cm) -Circular Undermining No -Wound/Ulcer Outcome Not Healed Not Healed -Ulcer Cleansing Rinsed/ Rinsed/ Irrigated with Irrigated with Saline Saline -Foul Odor after Cleansing No No -Bioengineered Tissue Yes -Type of Bioengineered Tissue Epifix Mesh -Expiration Date 02/01/29 -Product Lot Number [id number] -Percent Used 100 -Lot number of Saline Used [id number] -Bleeding Controlled with Pressure,Silver NA Nitrate -Treatment Response Procedure Tolerated Well -Debridement - Subq, 1st 20sq cm No -Debridement - Muscle / Fascia, 1st 20sq cm -Apply Skin Sub - 1st 25 sq cm - Legs -Apply Skin Sub - each addt'l 25 sq cm 1 - Legs -Epifix Mesh Application 1-4 (per sq 11 cm) -Wound Comment(s) silver nitrate for hypergranulatio n Pain Scale: 0-10 Numeric Is Patient Pain Free? Yes Yes WC - Nurse 3 - General Ulcer D/C NN Start: 08/03/24 10:50 Freq: Status: Active Protocol: Activity Type Activity Date Activity User E-sign Co-sign Detail Recorded Client Recorded Date Recorded By Document 08/03/24 11:24 RB [id number] 08/03/24 11:29 RB Document 08/10/24 11:40 RB [id number] 08/10/24 11:42 RB Document 08/17/24 12:02 RB [id number] 08/17/24 12:04 RB Document 08/24/24 11:26 IL [id number] 08/24/24 11:40 [place] 08/03/24 08/10/24 08/17/24 11:24 11:40 12:02 Wound Care Center Nurse 3 #17- L. Ischium -Ulcer Cleansing Wound Cleanser Rinsed/ Irrigated with Saline -Primary Dressing Applied Aquacel Extra, Aquacel Extra, Silicone Border Silicone Border Silicone Border Foam 4x4 Foam 4x4, Foam 4x4, Silicone Border Silicone Border Foam 6x6 Foam 6x6 -Aquacel Extra 1 1 -Silicone Border Foam 4x4 1 1 2 -Silicone Border Foam 6x6 1 1 -Wound Comment(s) 4x4 silicone R HALLUX PAD pad in protect border dressing AND PROTECR left hallux to left hallux WITH MEPILEX #14 Right Buttock -Ulcer Cleansing Wound Cleanser -Negative Pressure Wound Therapy Continue Continue -Pieces of White Foam Inserted 150 125 -Pieces of Black Foam Inserted 1 1 -NPWT Application Charge NPWT & NPWT & Debridement (nc Debridement (nc ) ) -Primary Dressing Applied Silicone Border Foam 6x6 -Primary Dressing Covered/Secured with Dry Gauze -Silicone Border Foam 6x6 1 Leyla-Wound Care Barrier Treatment Response Procedure Procedure Tolerated Well Tolerated Well Pain Scale: 0-10 Numeric Is Patient Pain Free? Yes Yes Yes WC - Visit Discharge Discharge Condition Stable Stable Stable Ambulatory Status Wheelchair Wheelchair Wheel[facility] Medication Reconcilliation completed & No No No provided to patient/care provider Clinical Summary of Care Provided Yes Yes Yes 08/24/24 11:26 Wound Care Center Nurse 3 #17- L. Ischium -Ulcer Cleansing -Primary Dressing Applied Silicone Border Foam 4x4 -Aquacel Extra -Silicone Border Foam 4x4 2 -Silicone Border Foam 6x6 -Wound Comment(s) #14 Right Buttock -Ulcer Cleansing -Negative Pressure Wound Therapy -Pieces of White Foam Inserted -Pieces of Black Foam Inserted -NPWT Application Charge -Primary Dressing Applied -Primary Dressing Covered/Secured with -Silicone Border Foam 6x6 Leyla-Wound Care Treatment Response Pain Scale: 0-10 Numeric Is Patient Pain Free? Yes WC - Visit Discharge Discharge Condition Ambulatory Status Transportation Medication Reconcilliation completed & provided to patient/care provider Clinical Summary of Care Provided Additional Wound Wound Grade/Stage: Stage III Assessment/Plan Assessment/Plan (1) Decubitus ulcer of sacral region, stage 2: CODE(S): L89.152 - Pressure ulcer of sacral region, stage 2 PLAN: Wound resolved and patient is to just sure prep pad and protect (2) Decubitus ulcer of toe, stage 2: CODE(S): L89.892 - Pressure ulcer of other site, stage 2 QUALIFIERS: Laterality: left Qualified Code(s): L89.892 - Pressure ulcer of other site, stage 2 PLAN: Resolved and needs to use your prep and padded and protect patient wears a postop shoe on that foot with a sock underneath. (3) Chronic anemia: CODE(S): D64.9 - Anemia, unspecified PLAN: Continue ferrous sulfate 325 mg to twice a day with stool softeners B12 injections 1000 mcg q. weekly Improved immensely she said at normal rate at this time (4) Decubitus ulcer of right buttock, stage 4: CODE(S): L89.314 - Pressure ulcer of right buttock, stage 4 PLAN: Wash with antibacterial soap and water and apply sure prep and Promogran to the area and cover with absorbent dressing Hold on EpiFix for 1 week (5) Skin ulcer of left great toe: CODE(S): L97.529 - Non-pressure chronic ulcer of other part of left foot with unspecified severity QUALIFIERS: Non-pressure ulcer stage: limited to breakdown of skin Qualified Code(s): L97.521 - Non-pressure chronic ulcer of other part of left foot limited to breakdown of skin (6) Decubitus ulcer of left ischium, stage 2: CODE(S): L89.322 - Pressure ulcer of left buttock, stage 2 PLAN: Wash area with antibacterial soap and water and apply sure prep and padded dressing. (7) Ulcer of anus: CODE(S): K62.6 - Ulcer of anus and rectum PLAN: Skin-Prep to area 2-3 times a day
--- NOTE | 2024-08-31 13:46 | WC ---
PHOTO 08/31/24 L GREAT TOE
== END 2024-08-31 23:59 | disposition home or self-care (01) ==
LOC: WC 10:15
PROVIDERS: PCP Family Medicine; Referring Provider Family Medicine; Visit Provider Nurse Practitioner
DX: L89.152 Pressure ulcer of sacral region, stage 2 (principal); L89.314 Pressure ulcer of right buttock, stage 4; L89.892 Pressure ulcer of other site, stage 2; L89.322 Pressure ulcer of left buttock, stage 2; Z99.3 Dependence on wheelchair; D64.9 Anemia, unspecified; K62.6 Ulcer of anus and rectum
CPT/HCPCS: 11042; 11043; 15271; 15272; 99213; Q4186; G0463

== ENCOUNTER 2024-09-28 10:30 | Outpatient (RCR) | payer MEDICARE, OTHER, SELFPAY ==
[2024-09-01 00:36] VITALS: BP 133/73; PULSE 65; RESP 18; TEMP 36.6; BMI 16.9
[2024-09-07 10:22] VITALS: BP 128/72; PULSE 79; RESP 16; TEMP 36.6; BMI 16.9
--- NOTE | 2024-09-07 12:39 | PCM.WC.PN ---
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 Patient underwent treatment for colitis as an inpatient in March 2024 and developed a right ischial pressure ulcer. It was debrided twice at [facility]. She has been following for wound care with a nurse practitioner in the wound care center, who referred her to me for second opinion to see if she needs surgery. Patient lives at home in an apartment usually by herself. She does not have a pressure offloading bed. She is quite high functioning; however, she is currently in a nursing facility for wound care ever since the recent hospital admission. 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 She has an adult daughter in [place] and an adult daughter here in [place] who are both very involved and supportive. Progress of Wound: Right ischium wound is doing very well without any more epi it is filling in on its own and it still has some hypergranulation but it is filling in in the crevice where it was much deeper. No sign of infection healing well measurements appear to be smaller. She developed a blister from putting a heating pad on her buttocks because she was cold. About the size of a quarter still blistered told her to pad and protect it with sure strip and an ABD pad over top or a [place] SAP pad. The left great toe helix is open again and we feel it is from her laying on her stomach and she is not padding it properly and putting a shoe or a sock or a foam dressing over top of that the protected and she is opening it. We will apply fibber call to the left helix with a [place] SAP dressing over top right buttocks we will continue the Promogran with a foam dressing over top and Skin-Prep to the left ischium blister with a foam dressing over top for protection. Stop using a heating pad ever. Subjective Subjective Patient was agreeable to plan. Objective Data Objective Data As stated above everything is measuring smaller than it was incidences the blister because she used a heating pad which she should not be using since she has no feelings from her waist down. She continues to offload and to eat properly and she appears to be healing well. Vital Signs: Vital Signs Temp Pulse Resp BP 97.8 F 79 16 128/72 H 09/07/24 10:09/07/24 10:22 09/07/24 10:09/07/24 10:22 Weight: 89 lb 6.4 oz Body Mass Index (BMI) 16.9 Lab / Micro Data Attestation: I reviewed the patient's lab results. Physical Exam Const oriented x3 General Appearance: cooperative Orientation / Consciousness: oriented to person, oriented to place and oriented to time Exam Limitations: no limitations Nutritional Appearance: cachectic, underweight and thin HEENT normocephalic Head and Scalp: normal to inspection External Ear: external ears normal Eyes PERRL General Eye: normal appearance of both eyes Neck full ROM General: normal visual inspection Resp normal respiratory effort Effort and Inspection: able to speak in complete sentences Auscultation: clear to auscultation bilaterally Cardio regular rate and regular rhythm Palpation: normal PMI Rate: regular rate Rhythm: regular rhythm GI Rectal Exam: visual inspection abnormal, fistula and other Other Details: Open wound left buttocks and perirectal may be fistula going on. Back/Spine Back/Spine Narrative: Paralysis from waist down Cervical Spine: cervical ROM normal Pelvis: buttocks abnormal right and other soft tissue findings Wound on her coccyx area Skin no rashes or lesions noted Skin Narrative: Open wounds on left buttocks with positive depth and infection possible sepsis sacral area open area nonhealing and perirectal area possibly a fistula. Wounds: wounds noted Wound Narrative: Open wound on coccyx stage II Right buttocks wound stage IV Neuro oriented x3 Psych Appearance: grossly normal Attitude: calm Activity / Motor Behavior: appropriate eye contact Speech: normal speech Mood & Affect: euthymic mood Thought Process: normal thought process Thought Content: normal thought content Attention / Concentration: attention grossly intact Memory / Cognition: memory grossly intact Insight: insight good Judgement: judgement good Debridement Note Debridement Note Wound debrided: Right buttocks Laterality: Right Wound Grade/Stage: Stage IV Type of Debridement: Selective debridement Anesthesia Used: 5% Lidocaine Gel Depth: in the subcutaneous layer Percentage of wound debrided: 100 Instrument Used: 5mm curette Tissue Removed: Fibrin Severity: Fat Layer Exposed Amount of bleeding with debridement: Mild Bleeding Controlled with: Compression and gauze Patient tolerated procedure: Patient tolerated procedure well Post-Debridement Measurements and Additional Note: Post-Debridement Measurements/Treatment WC - Nurse 1 - General Ulcer Assessment Start: 09/07/24 10:22 Freq: Status: Active Protocol: JOSEPHINE Activity Type Activity Date Activity User E-sign Co-sign Detail Recorded Client Recorded Date Recorded By Document 09/07/24 10:22 DL [id number] 09/07/24 10:35 DL 09/07/24 10:22 WC - Today's Visit Information Type of service Follow-up Visit (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 ) Arrival Mode Wheelchair Transfer Assistance Manual Transfer Assist (Other) x2 Patient Identification Verified (Name & Yes ) Patient Requires Transmission-Based No Precautions Height and Weight Body Mass Index (BMI) 16.9 BMI Classification Underweight Vital Signs Temperature (97.8 F-99.1 F) 97.8 F Temperature Source Temporal Pulse Rate (60-100) 79 Pulse Location Monitor Respiratory Rate (12-18) 16 Respiratory rate source Observation Blood Pressure (90/60-120/80) 128/72 H Blood Pressure Mean (mm Hg) 90 Source Monitor History Since Last Visit- (Skip if this is Patient's initial visit) Have you changed medications since your No last visit? Any new allergies or adverse reactions No Had a fall/change in ADL's that may No increase risk of falls Signs or symptoms of abuse and/or No neglect since last visit Have you been in the hospital since your No last visit? Has dressing in place as prescribed Yes Has compression in place as prescribed N/A Has offloadiing in place as prescribed Yes Experienced any changes in pain level or No management Pain Scale: 0-10 Numeric Is Patient Pain Free? Yes MARY - Nurse 1 - General Ulcer Measurement Start: 09/07/24 10:22 Freq: Status: Active Protocol: Activity Type Activity Date Activity User E-sign Co-sign Detail Recorded Client Recorded Date Recorded By Document 09/07/24 10:22 DL [id number] 09/07/24 10:35 DL 09/07/24 10:22 Wound Center Nurse 1 #17- L. Ischium -Current Size (cm) - Length 0 -Current Size (cm) - Width 0 -Current Size (cm) - Depth 0 -Total Square Cm 0 -Photo Taken Yes -Exudate Amt None Present -Wound Margin Flat & Intact -Granulation Amt Large (67-100%) -Granulation Quality [place] -Necrosis Amt None Present (0 %) -Structure Exposed N/A -Texture (Leyla-wound Skin Appearance) Scarring -Moisture (Leyla-wound Skin Appearance) No Abnormality -Color (Leyla-wound Skin Appearance) No Abnormality -Temperature (Leyla-wound Skin No Abnormality Appearance) (Pt Warm) -Tenderness on Palpation (Leyla-wound No Skin Appearance) -Foul Odor after Cleansing No 318 L Grt Toe -Current Size (cm) - Length 1 -Current Size (cm) - Width 0.8 -Current Size (cm) - Depth 0.1 -Total Square Cm 0.8 -Photo Taken Yes -Exudate Amt Medium -Exudate Type Serosanguineous -Wound Margin Distinct, Outline Attached -Granulation Amt Medium (34-66%) -Granulation Quality [place] -Necrosis Amt Medium (34-66%) -Necrotic Tissue Type Adherent Slough -Structure Exposed N/A -Texture (Leyla-wound Skin Appearance) Scarring -Moisture (Leyla-wound Skin Appearance) No Abnormality -Color (Leyla-wound Skin Appearance) No Abnormality -Temperature (Leyla-wound Skin No Abnormality Appearance) (Pt Warm) -Ulcer Cleansing Soap and Water -Foul Odor after Cleansing No -Anesthetic Used 5% Lidocaine Gel #14 Right Buttock -Current Size (cm) - Length 2.4 -Current Size (cm) - Width 1.1 -Current Size (cm) - Depth 0.1 -Total Square Cm 2.64 -Photo Taken Yes -Exudate Amt Medium -Exudate Type Serosanguineous -Wound Margin Distinct, Outline Attached -Granulation Amt Large (67-100%) -Granulation Quality Hyper- granulation, [place] -Necrosis Amt None Present (0 %) -Structure Exposed N/A -Texture (Leyla-wound Skin Appearance) Scarring -Moisture (Leyla-wound Skin Appearance) No Abnormality -Color (Leyla-wound Skin Appearance) No Abnormality -Temperature (Leyla-wound Skin No Abnormality Appearance) (Pt Warm) -Tenderness on Palpation (Leyla-wound No Skin Appearance) -Ulcer Cleansing Soap and Water -Foul Odor after Cleansing No -Anesthetic Used 5% Lidocaine Gel -Wound Comment(s) Intact blister noted to R Buttock/Back, states was using a heating pad. WC - Nurse 2 - General Ulcer CM Notes Start: 09/07/24 10:22 Freq: Status: Active Protocol: Activity Type Activity Date Activity User E-sign Co-sign Detail Recorded Client Recorded Date Recorded By Document 09/07/24 10:45 [facility] [id number] 09/07/24 10:57 [facility] 09/07/24 10:45 Wound Center Nurse 2 #17- L. Ischium -Time 10:47 -Procedure Performed No -Post Debridement (cm) - Length 0 -Post Debridement (cm) - Width 0 -Post Debridement (cm) - Depth 0 -Total Square (Post) (cm) 0 -Area of Debridement (cm) - Length 0 -Area of Debridement (cm) - Width 0 -Total Square (Area) (cm) 0 -Wound/Ulcer Outcome Healed- Epithelialized -Bleeding Controlled with NA 318 L Grt Toe -Time 10:47 -Correct Patient Yes -Correct Side, Site, Position Yes -Correct Procedure Yes -Procedure Performed Yes -Type of Procedure Debridement -Clinical Debridement Subcutaneous -Tissue Removed Subcutaneous -Post Debridement (cm) - Length 1.4 -Post Debridement (cm) - Width 1.8 -Post Debridement (cm) - Depth 0.1 -Total Square (Post) (cm) 2.52 -Area of Debridement (cm) - Length 1.4 -Area of Debridement (cm) - Width 1.8 -Total Square (Area) (cm) 2.52 -Tunneling No -Undermining/Tunneling No -Circular Undermining No -Wound/Ulcer Outcome Not Healed -Ulcer Cleansing Rinsed/ Irrigated with Saline -Foul Odor after Cleansing No -Bioengineered Tissue No -Bleeding Controlled with Pressure, Surgifoam ? x 2 3/8 (sm) -Surgifoam (3/4 x 2 3/8) Small 1 -Treatment Response Procedure Tolerated Well -Debridement - Subq, 1st 20sq cm Yes #14 Right Buttock -Time 10:45 -Correct Patient Yes -Correct Side, Site, Position Yes -Correct Procedure Yes -Procedure Performed Yes -Type of Procedure Debridement -Clinical Debridement Subcutaneous -Tissue Removed Subcutaneous -Post Debridement (cm) - Length 3 -Post Debridement (cm) - Width 1 -Post Debridement (cm) - Depth 0.1 -Total Square (Post) (cm) 3 -Area of Debridement (cm) - Length 3 -Area of Debridement (cm) - Width 1 -Total Square (Area) (cm) 3 -Tunneling No -Undermining/Tunneling No -Circular Undermining No -Wound/Ulcer Outcome Not Healed -Ulcer Cleansing Rinsed/ Irrigated with Saline -Foul Odor after Cleansing No -Bioengineered Tissue No -Bleeding Controlled with Pressure -Treatment Response Procedure Tolerated Well -Debridement - Subq, 1st 20sq cm No Pain Scale: 0-10 Numeric Is Patient Pain Free? Yes - Nurse 3 - General Ulcer D/C NN Start: 09/07/24 10:22 Freq: Status: Active Protocol: Activity Type Activity Date Activity User E-sign Co-sign Detail Recorded Client Recorded Date Recorded By Document 09/07/24 11:14 DL [id number] 09/07/24 11:19 DL 09/07/24 11:14 Wound Care Center Nurse 3 318 L Grt Toe -Foul Odor after Cleansing No -Primary Dressing Applied Silicone Border Foam 4x4 -Other Dressing Surgafoam today -Silicone Border Foam 4x4 1 #14 Right Buttock -Ulcer Cleansing Rinsed/ Irrigated with Saline -Foul Odor after Cleansing No -Primary Dressing Applied Promogran, Silicone Border Foam 4x4, Silicone Border Foam 6x6 -Promogran 1 -Silicone Border Foam 4x4 1 -Silicone Border Foam 6x6 1 -Wound Comment(s) Skin prep and 4x4 silicone border dressing to blister. 2 border foam noted on R Buttocks nurse 3. Pain Scale: 0-10 Numeric Is Patient Pain Free? Yes - Visit Discharge Discharge Condition Stable Ambulatory Status Wheelchair Transportation Private Auto Facility Type Shelter Care Facility Orders Sent Yes Additional Wound Wound debrided: Left hallux Shearing Laterality: Left Wound Grade/Stage: Stage II Type of Debridement: Excisional debridement Anesthesia Used: 5% Lidocaine Gel Depth: Down to and including healthy tissue Percentage of wound debrided: 100 Instrument Used: 5mm curette Severity: Limited To Skin Breakdown Amount of bleeding with debridement: Moderate Bleeding Controlled with: Gel Foam Patient tolerated procedure: Patient tolerated procedure well Assessment/Plan Assessment/Plan (1) Decubitus ulcer of sacral region, stage 2: CODE(S): L89.152 - Pressure ulcer of sacral region, stage 2 PLAN: Wound resolved and patient is to just sure prep pad and protect (2) Decubitus ulcer of toe, stage 2: CODE(S): L89.892 - Pressure ulcer of other site, stage 2 QUALIFIERS: Laterality: left Qualified Code(s): L89.892 - Pressure ulcer of other site, stage 2 PLAN: Wash area with Dial soap and pat dry with water and apply Fibracol to wound base cover with a Adaptic and a foam dressing every day (3) Chronic anemia: CODE(S): D64.9 - Anemia, unspecified PLAN: Continue ferrous sulfate 325 mg to twice a day with stool softeners B12 injections 1000 mcg q. weekly Improved immensely she said at normal rate at this time (4) Decubitus ulcer of right buttock, stage 4: CODE(S): L89.314 - Pressure ulcer of right buttock, stage 4 PLAN: Wash with antibacterial soap and water and apply sure prep and Promogran to the area and cover with absorbent dressing Hold on EpiFix for another week (5) Skin ulcer of left great toe: CODE(S): L97.529 - Non-pressure chronic ulcer of other part of left foot with unspecified severity QUALIFIERS: Non-pressure ulcer stage: limited to breakdown of skin Qualified Code(s): L97.521 - Non-pressure chronic ulcer of other part of left foot limited to breakdown of skin (6) Decubitus ulcer of left ischium, stage 2: CODE(S): L89.322 - Pressure ulcer of left buttock, stage 2 PLAN: Resolved and monitor may use Skin-Prep as needed (7) Ulcer of anus: CODE(S): K62.6 - Ulcer of anus and rectum PLAN: Resolved and monitor use Skin-Prep as needed
--- NOTE | 2024-09-08 09:59 | WC ---
PHOTO 09/07/24 RIGHT BUTTOCKS
[2024-09-14 10:49] VITALS: BP 130/73; PULSE 61; RESP 18; TEMP 36.4; BMI 16.9
--- NOTE | 2024-09-14 11:58 | PN.PCM_ITS ---
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 Patient underwent treatment for colitis as an inpatient in March 2024 and developed a right ischial pressure ulcer. It was debrided twice at [facility]. She has been following for wound care with a nurse practitioner in the wound care center, who referred her to me for second opinion to see if she needs surgery. Patient lives at home in an apartment usually by herself. She does not have a pressure offloading bed. She is quite high functioning; however, she is currently in a nursing facility for wound care ever since the recent hospital admission. 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 She has an adult daughter in [place] and an adult daughter here in [place] who are both very involved and supportive. Progress of Wound: Right ischium wound is healed. She developed a blister from putting a heating pad on her buttocks because she was cold. About the size of a quarter now it is flat and smooth we will apply Fibracol and Adaptic on top of it to keep it from getting infected with a foam dressing, [place] SAP pad. The left great toe helix is open again and we feel it is from her laying on her stomach and she is not padding it properly and putting a shoe or a sock or a foam dressing over top of that the protected and she is opening it. We will apply fibrocal to the left helix with a [place] SAP dressing over top seems to be doing well with that. It is measuring smaller. Right buttocks continues to be hyper granulated and we will try hitting it with some nitrous sticks and put a dry dressing on for 24 hours and then she can restart her regular dressing of Promogran with a foam dressing over top .Stop using a heating pad ever. Subjective Subjective Patient pleased with outcome so far Objective Data Objective Data As stated above everything is smaller healing better the right buttocks is like very hyper granulated so we will continue to hit it with nitrous and then she can cover it the next day with Promogran and tubing get skin to cover it and close it. Patient is still encouraged to offload she is not allowed to get up and sit in her chair. Vital Signs: Vital Signs Temp Pulse Resp BP 97.6 F L 61 18 130/73 H 09/14/24 10:49 09/14/24 10:49 09/14/24 10:49 09/14/24 10:49 Weight: 89 lb 6.4 oz Body Mass Index (BMI) 16.9 Lab / Micro Data Attestation: I reviewed the patient's lab results. Physical Exam Const oriented x3 General Appearance: cooperative Orientation / Consciousness: oriented to person, oriented to place and oriented to time Exam Limitations: no limitations Nutritional Appearance: cachectic, underweight and thin HEENT normocephalic Head and Scalp: normal to inspection External Ear: external ears normal Eyes PERRL General Eye: normal appearance of both eyes Neck full ROM General: normal visual inspection Resp normal respiratory effort Effort and Inspection: able to speak in complete sentences Auscultation: clear to auscultation bilaterally Cardio regular rate and regular rhythm Palpation: normal PMI Rate: regular rate Rhythm: regular rhythm GI Rectal Exam: visual inspection abnormal, fistula and other Other Details: Open wound left buttocks and perirectal may be fistula going on. Back/Spine Back/Spine Narrative: Paralysis from waist down Cervical Spine: cervical ROM normal Pelvis: buttocks abnormal right and other soft tissue findings Wound on her coccyx area Skin no rashes or lesions noted Skin Narrative: Open wounds on left buttocks with positive depth and infection possible sepsis sacral area open area nonhealing and perirectal area possibly a fistula. Wounds: wounds noted Wound Narrative: Open wound on coccyx stage II Right buttocks wound stage IV Neuro oriented x3 Psych Appearance: grossly normal Attitude: calm Activity / Motor Behavior: appropriate eye contact Speech: normal speech Mood & Affect: euthymic mood Thought Process: normal thought process Thought Content: normal thought content Attention / Concentration: attention grossly intact Memory / Cognition: memory grossly intact Insight: insight good Judgement: judgement good Debridement Note Debridement Note Wound debrided: Right buttocks Laterality: Right Wound Grade/Stage: Stage IV Type of Debridement: Selective debridement Anesthesia Used: 5% Lidocaine Gel Depth: in the subcutaneous layer Percentage of wound debrided: 100 Instrument Used: 5mm curette Tissue Removed: Fibrin Severity: Fat Layer Exposed Amount of bleeding with debridement: Mild Bleeding Controlled with: Compression and gauze Patient tolerated procedure: Patient tolerated procedure well Post-Debridement Measurements and Additional Note: Post-Debridement Measurements/Treatment MARY - Nurse 1 - General Ulcer Assessment Start: 09/07/24 10:22 Freq: Status: Active Protocol: JOSEPHINE Activity Type Activity Date Activity User E-sign Co-sign Detail Recorded Client Recorded Date Recorded By Document 09/07/24 10:22 DL [id number] 09/07/24 10:35 DL Document 09/14/24 10:49 RB [id number] 09/14/24 10:53 RB 09/07/24 09/14/24 10:22 10:49 - Today's Visit Information Type of service Follow-up Visit Follow-up Visit (Physician/DIRECTOR GIFT (Physician/DIRECTOR GIFT ) ) Arrival Mode Wheelchair Wheelchair Transfer Assistance Manual Manual Transfer Assist (Other) x2 Patient Identification Verified (Name & Yes Yes ) Patient Requires Transmission-Based No No Precautions Height and Weight Body Mass Index (BMI) 16.9 16.9 BMI Classification Underweight Underweight Vital Signs Temperature (97.8 F-99.1 F) 97.8 F 97.6 F L Temperature Source Temporal Temporal Pulse Rate (60-100) 79 61 Pulse Location Monitor Monitor Respiratory Rate (12-18) 16 18 Respiratory rate source Observation Observation Blood Pressure (90/60-120/80) 128/72 H 130/73 H Blood Pressure Mean (mm Hg) 90 92 Source Monitor Monitor Position Semi-Fowlers Blood Pressure Location Right Arm History Since Last Visit- (Skip if this is Patient's initial visit) Have you changed medications since your No No last visit? Any new allergies or adverse reactions No No Had a fall/change in ADL's that may No No increase risk of falls Signs or symptoms of abuse and/or No No neglect since last visit Have you been in the hospital since your No No last visit? Has dressing in place as prescribed Yes Yes Has compression in place as prescribed N/A N/A Has offloadiing in place as prescribed Yes N/A Experienced any changes in pain level or No No management Pain Scale: 0-10 Numeric Is Patient Pain Free? Yes No FROM WAIST DOWN TO FEET -Description Sharp -Intensity 7 -Duration (hours) Chronic -Pain Behavior No Change in Behavior -Pain Aggravating Factors Changing Position -Alleviating Factors/Interventions Medication -Effectiveness of Alleviating Factor/ Moderately Intervention effective WC - Nurse 1 - General Ulcer Measurement Start: 09/07/24 10:22 Freq: Status: Active Protocol: Activity Type Activity Date Activity User E-sign Co-sign Detail Recorded Client Recorded Date Recorded By Document 09/07/24 10:22 DL [id number] 09/07/24 10:35 DL Document 09/14/24 10:49 RB [id number] 09/14/24 10:53 RB 09/07/24 09/14/24 10:22 10:49 Wound Center Nurse 1 #17- L. Ischium -Current Size (cm) - Length 0 -Current Size (cm) - Width 0 -Current Size (cm) - Depth 0 -Total Square Cm 0 -Photo Taken Yes -Exudate Amt None Present -Wound Margin Flat & Intact -Granulation Amt Large (67-100%) -Granulation Quality [place] -Necrosis Amt None Present (0 %) -Structure Exposed N/A -Texture (Leyla-wound Skin Appearance) Scarring -Moisture (Leyla-wound Skin Appearance) No Abnormality -Color (Leyla-wound Skin Appearance) No Abnormality -Temperature (Leyla-wound Skin No Abnormality Appearance) (Pt Warm) -Tenderness on Palpation (Leyla-wound No Skin Appearance) -Foul Odor after Cleansing No 19. sacral -Combined with other wound No -Current Size (cm) - Length 1.4 -Current Size (cm) - Width 0.7 -Current Size (cm) - Depth 0.1 -Total Square Cm 0.98 -Photo Taken Yes -Tunneling No -Undermining/Tunneling No -Circular Undermining No -Exudate Amt Medium -Exudate Type Serosanguineous -Wound Margin Distinct, Outline Attached -Granulation Amt Medium (34-66%) -Granulation Quality [place] -Slough/Fibrin Yes -Necrosis Amt Small (1-33%) -Necrotic Tissue Type Adherent Slough -Structure Exposed N/A -Texture (Leyla-wound Skin Appearance) Assessed -Moisture (Leyla-wound Skin Appearance) Assessed -Color (Leyla-wound Skin Appearance) Erythema -Temperature (Leyla-wound Skin No Abnormality Appearance) (Pt Warm) -Tenderness on Palpation (Leyla-wound No Skin Appearance) -Ulcer Cleansing Wound Cleanser -Foul Odor after Cleansing No -Anesthetic Used 5% Lidocaine Gel #18 L Grt Toe -Combined with other wound No -Current Size (cm) - Length 1 0.8 -Current Size (cm) - Width 0.8 1.4 -Current Size (cm) - Depth 0.1 0.1 -Total Square Cm 0.8 1.12 -Photo Taken Yes Yes -Tunneling No -Undermining/Tunneling No -Circular Undermining No -Exudate Amt Medium Medium -Exudate Type Serosanguineous Serosanguineous -Wound Margin Distinct, Distinct, Outline Outline Attached Attached -Granulation Amt Medium (34-66%) Medium (34-66%) -Granulation Quality [place] -Slough/Fibrin Yes -Necrosis Amt Medium (34-66%) Small (1-33%) -Necrotic Tissue Type Adherent Slough Adherent Slough -Structure Exposed N/A N/A -Texture (Leyla-wound Skin Appearance) Scarring Assessed -Moisture (Leyla-wound Skin Appearance) No Abnormality Assessed -Color (Leyla-wound Skin Appearance) No Abnormality Assessed -Temperature (Leyla-wound Skin No Abnormality No Abnormality Appearance) (Pt Warm) (Pt Warm) -Tenderness on Palpation (Leyla-wound No Skin Appearance) -Ulcer Cleansing Soap and Water Wound Cleanser -Foul Odor after Cleansing No No -Anesthetic Used 5% Lidocaine 5% Lidocaine Gel Gel #14 Right Buttock -Combined with other wound No -Current Size (cm) - Length 2.4 2.6 -Current Size (cm) - Width 1.1 0.7 -Current Size (cm) - Depth 0.1 0.1 -Total Square Cm 2.64 1.82 -Photo Taken Yes Yes -Tunneling No -Undermining/Tunneling No -Circular Undermining No -Exudate Amt Medium Medium -Exudate Type Serosanguineous Serosanguineous -Wound Margin Distinct, Distinct, Outline Outline Attached Attached -Granulation Amt Large (67-100%) Medium (34-66%) -Granulation Quality Hyper- [place] granulation, [place] -Slough/Fibrin Yes -Necrosis Amt None Present (0 Medium (34-66%) %) -Necrotic Tissue Type Adherent Slough -Structure Exposed N/A N/A -Texture (Leyla-wound Skin Appearance) Scarring Assessed -Moisture (Leyla-wound Skin Appearance) No Abnormality Assessed -Color (Leyla-wound Skin Appearance) No Abnormality Assessed -Temperature (Leyla-wound Skin No Abnormality No Abnormality Appearance) (Pt Warm) (Pt Warm) -Tenderness on Palpation (Leyla-wound No No Skin Appearance) -Ulcer Cleansing Soap and Water Wound Cleanser -Foul Odor after Cleansing No No -Anesthetic Used 5% Lidocaine 5% Lidocaine Gel Gel -Wound Comment(s) Intact blister noted to R Buttock/Back, states was using a heating pad. WC - Nurse 2 - General Ulcer CM Notes Start: 09/07/24 10:22 Freq: Status: Active Protocol: Activity Type Activity Date Activity User E-sign Co-sign Detail Recorded Client Recorded Date Recorded By Document 09/07/24 10:45 [facility] [id number] 09/07/24 10:57 BM Document 09/14/24 11:01 BM [id number] 09/14/24 11:12 BMF 09/07/24 09/14/24 10:45 11:01 Wound Center Nurse 2 #17- LSadia Ischium -Time 10:47 -Procedure Performed No -Post Debridement (cm) - Length 0 -Post Debridement (cm) - Width 0 -Post Debridement (cm) - Depth 0 -Total Square (Post) (cm) 0 -Area of Debridement (cm) - Length 0 -Area of Debridement (cm) - Width 0 -Total Square (Area) (cm) 0 -Wound/Ulcer Outcome Healed- Epithelialized -Bleeding Controlled with NA 19. sacral -Time 11:06 -Correct Patient Yes -Correct Side, Site, Position Yes -Correct Procedure Yes -Procedure Performed Yes -Type of Procedure Debridement -Clinical Debridement Subcutaneous -Tissue Removed Subcutaneous -Post Debridement (cm) - Length 1.5 -Post Debridement (cm) - Width 1.7 -Post Debridement (cm) - Depth 0.1 -Total Square (Post) (cm) 2.55 -Area of Debridement (cm) - Length 1.5 -Area of Debridement (cm) - Width 1.7 -Total Square (Area) (cm) 2.55 -Tunneling No -Undermining/Tunneling No -Circular Undermining No -Wound/Ulcer Outcome Not Healed -Ulcer Cleansing Rinsed/ Irrigated with Saline -Foul Odor after Cleansing No -Bioengineered Tissue No -Bleeding Controlled with Pressure -Treatment Response Procedure Tolerated Well -Debridement - Subq, 1st 20sq cm No #18 L Grt Toe -Time 10:47 11:08 -Correct Patient Yes Yes -Correct Side, Site, Position Yes Yes -Correct Procedure Yes Yes -Procedure Performed Yes Yes -Type of Procedure Debridement Debridement -Clinical Debridement Subcutaneous Subcutaneous -Tissue Removed Subcutaneous Subcutaneous -Post Debridement (cm) - Length 1.4 1.3 -Post Debridement (cm) - Width 1.8 1.5 -Post Debridement (cm) - Depth 0.1 0.1 -Total Square (Post) (cm) 2.52 1.95 -Area of Debridement (cm) - Length 1.4 1.3 -Area of Debridement (cm) - Width 1.8 1.5 -Total Square (Area) (cm) 2.52 1.95 -Tunneling No No -Undermining/Tunneling No No -Circular Undermining No No -Wound/Ulcer Outcome Not Healed Not Healed -Ulcer Cleansing Rinsed/ Rinsed/ Irrigated with Irrigated with Saline Saline -Foul Odor after Cleansing No No -Bioengineered Tissue No No -Bleeding Controlled with Pressure, Pressure Surgifoam ? x 2 3/8 (sm) -Surgifoam (3/4 x 2 3/8) Small 1 -Treatment Response Procedure Procedure Tolerated Well Tolerated Well -Debridement - Subq, 1st 20sq cm Yes No #14 Right Buttock -Time 10:45 11:04 -Correct Patient Yes Yes -Correct Side, Site, Position Yes Yes -Correct Procedure Yes Yes -Procedure Performed Yes Yes -Type of Procedure Debridement Debridement -Clinical Debridement Subcutaneous Subcutaneous -Tissue Removed Subcutaneous Subcutaneous -Post Debridement (cm) - Length 3 2 -Post Debridement (cm) - Width 1 1.5 -Post Debridement (cm) - Depth 0.1 0.1 -Total Square (Post) (cm) 3 3.0 -Area of Debridement (cm) - Length 3 2 -Area of Debridement (cm) - Width 1 1.5 -Total Square (Area) (cm) 3 3.0 -Tunneling No No -Undermining/Tunneling No No -Circular Undermining No No -Wound/Ulcer Outcome Not Healed Not Healed -Ulcer Cleansing Rinsed/ Rinsed/ Irrigated with Irrigated with Saline Saline -Foul Odor after Cleansing No No -Bioengineered Tissue No No -Bleeding Controlled with Pressure Pressure,Silver Nitrate ($) -Treatment Response Procedure Procedure Tolerated Well Tolerated Well -Debridement - Subq, 1st 20sq cm No Yes Pain Scale: 0-10 Numeric Is Patient Pain Free? Yes Yes - Nurse 3 - General Ulcer D/C NN Start: 09/07/24 10:22 Freq: Status: Active Protocol: Activity Type Activity Date Activity User E-sign Co-sign Detail Recorded Client Recorded Date Recorded By Document 09/07/24 11:14 DL [id number] 09/07/24 11:19 DL Document 09/14/24 11:28 DL [id number] 09/14/24 11:31 DL 09/07/24 09/14/24 11:14 11:28 Wound Care Center Nurse 3 19. sacral -Ulcer Cleansing Rinsed/ Irrigated with Saline -Foul Odor after Cleansing No -Primary Dressing Applied Fibracol Plus 4x4,NonAdherent Contact Layer, Silicone Border Foam 4x4 -Fibracol Plus 4x4 1 -Silicone Border Foam 4x4 1 #18 L Grt Toe -Ulcer Cleansing Rinsed/ Irrigated with Saline -Foul Odor after Cleansing No No -Primary Dressing Applied Silicone Border NonAdherent Foam 4x4 Contact Layer, Silicone Border Foam 4x4 -Other Dressing Surgafoam today fibracol -Silicone Border Foam 4x4 1 1 #14 Right Buttock -Ulcer Cleansing Rinsed/ Rinsed/ Irrigated with Irrigated with Saline Saline -Foul Odor after Cleansing No No -Primary Dressing Applied Promogran, Promogran, Silicone Border Silicone Border Foam 4x4, Foam 4x4 Silicone Border Foam 6x6 -Promogran 1 1 -Silicone Border Foam 4x4 1 1 -Silicone Border Foam 6x6 1 -Wound Comment(s) Skin prep and 4x4 silicone border dressing to blister. 2 border foam noted on R Buttocks nurse 3. Treatment Response Procedure Tolerated Well Pain Scale: 0-10 Numeric Is Patient Pain Free? Yes Yes - Visit Discharge Discharge Condition Stable Stable Ambulatory Status Wheelchair Wheelchair Transportation Private Auto Private Auto Notes: Dressing applied today per Nora Hollis. Facility Type Flight Control Manager Care Facility Orders Sent Yes Yes Additional Wound Wound debrided: Left hallux Shearing Laterality: Left Wound Grade/Stage: Stage II Type of Debridement: Excisional debridement Anesthesia Used: 5% Lidocaine Gel Depth: Down to and including healthy tissue Percentage of wound debrided: 100 Instrument Used: 5mm curette Severity: Limited To Skin Breakdown Amount of bleeding with debridement: Moderate Bleeding Controlled with: Gel Foam Patient tolerated procedure: Patient tolerated procedure well Additional Wound Wound debrided: Left sacral blister Type of Debridement: Excisional debridement Anesthesia Used: 5% Lidocaine Gel Depth: Down to and including healthy tissue Percentage of wound debrided: 100 Instrument Used: 5mm curette Tissue Removed: Fibrin Severity: Limited To Skin Breakdown Amount of bleeding with debridement: Mild Bleeding Controlled with: Compression and gauze Patient tolerated procedure: Patient tolerated procedure well Assessment/Plan Assessment/Plan (1) Decubitus ulcer of sacral region, stage 2: CODE(S): L89.152 - Pressure ulcer of sacral region, stage 2 PLAN: Wound resolved and patient is to just sure prep pad and protect (2) Decubitus ulcer of toe, stage 2: CODE(S): L89.892 - Pressure ulcer of other site, stage 2 QUALIFIERS: Laterality: left Qualified Code(s): L89.892 - Pressure ulcer of other site, stage 2 PLAN: Wash area with Dial soap and pat dry with water and apply Fibracol to wound base cover with a Adaptic and a foam dressing every day (3) Chronic anemia: CODE(S): D64.9 - Anemia, unspecified PLAN: Continue ferrous sulfate 325 mg to twice a day with stool softeners B12 injections 1000 mcg q. weekly Improved immensely she said at normal rate at this time (4) Decubitus ulcer of right buttock, stage 4: CODE(S): L89.314 - Pressure ulcer of right buttock, stage 4 PLAN: Wash with antibacterial soap and water and apply sure prep and Promogran to the area and cover with absorbent dressing (5) Skin ulcer of left great toe: CODE(S): L97.529 - Non-pressure chronic ulcer of other part of left foot with unspecified severity QUALIFIERS: Non-pressure ulcer stage: limited to breakdown of skin Qualified Code(s): L97.521 - Non-pressure chronic ulcer of other part of left foot limited to breakdown of skin (6) Decubitus ulcer of left ischium, stage 2: CODE(S): L89.322 - Pressure ulcer of left buttock, stage 2 PLAN: Resolved and monitor may use Skin-Prep as needed (7) Ulcer of anus: CODE(S): K62.6 - Ulcer of anus and rectum PLAN: Resolved and monitor use Skin-Prep as needed (8) Non-pressure chronic ulcer of buttock: CODE(S): L98.419 - Non-pressure chronic ulcer of buttock with unspecified severity QUALIFIERS: Non-pressure ulcer stage: limited to breakdown of skin Qualified Code(s): L98.411 - Non-pressure chronic ulcer of buttock limited to breakdown of skin PLAN: Wash area with antibacterial soap and water and apply Fibracol with Adaptic over top and a foam SAP [place] dressing every day follow-up in 1 week
--- NOTE | 2024-09-14 13:33 | WC ---
PHOTO 09/15/24 RIGHT BUTTOCKS
--- NOTE | 2024-09-14 13:34 | WC ---
PHOTO 09/14/24 SACRAL
--- NOTE | 2024-09-14 13:36 | WC ---
PHOTO 09/14/24 LEFT GREAT TOE
--- NOTE | 2024-09-16 09:43 | WC ---
PHOTO 09/14/24 RIGHT BUTTOCKS
--- NOTE | 2024-09-16 09:45 | WC ---
PHOTO 09/14/24 LEFT GREAT TOE
[2024-09-21 10:42] VITALS: BP 122/71; PULSE 92; RESP 18; TEMP 36.2; BMI 16.9
--- NOTE | 2024-09-21 12:01 | PCM.WC.PN ---
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 Patient underwent treatment for colitis as an inpatient in March 2024 and developed a right ischial pressure ulcer. It was debrided twice at [facility]. She has been following for wound care with a nurse practitioner in the wound care center, who referred her to me for second opinion to see if she needs surgery. Patient lives at home in an apartment usually by herself. She does not have a pressure offloading bed. She is quite high functioning; however, she is currently in a nursing facility for wound care ever since the recent hospital admission. 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 She has an adult daughter in [place] and an adult daughter here in [place] who are both very involved and supportive. Progress of Wound: Right ischium wound is healed. She developed a blister from putting a heating pad on her buttocks because she was cold. About the size of a quarter now it is flat and smooth we will apply Fibracol and Adaptic on top of it to keep it from getting infected with a foam dressing, [place] SAP pad. The left great toe hallux is open again and we feel it is from her laying on her stomach and she is not padding it properly and putting a shoe or a sock or a foam dressing over top of that the protected and she is opening it. We will change to Xeroform and Adaptic and maybe use some stasis pads over to see if that helps protect it. Right buttocks hyper granulated area is gone and we will try going back to the EpiFix to finish we can finish her off it measuring smaller she is all nice and smooth and looks really good. Subjective Subjective Patient is agreeable to plan and has not been laying on her stomach she says she is laying on her side so she will be hitting that that toe. Objective Data Objective Data Again the right buttocks looks good the hypergranulation is done its flat smaller you can see where the skin starting to creep and around the edges of the peripheral and we will try using another EpiFix see if we can close it and get more skin to develop on the outside. The blistered area on her right buttocks is still flat and does not really move so we will try continue using the Fibracol on that. The left great toe hallux is not bleeding it looks flatter and smaller we will try maybe using Xeroform on it so we can close it with Xeroform and Adaptic this week. All in all she looks like she is healing well on all the wounds she continues to offload and she continues to eat a high-protein diet. Vital Signs: Vital Signs Temp Pulse Resp BP 97.2 F L 92 18 122/71 H 09/21/24 10:42 09/21/24 10:42 09/21/24 10:42 09/21/24 10:42 Weight: 89 lb 6.4 oz Body Mass Index (BMI) 16.9 Physical Exam Const oriented x3 General Appearance: cooperative Orientation / Consciousness: oriented to person, oriented to place and oriented to time Exam Limitations: no limitations Nutritional Appearance: cachectic, underweight and thin HEENT normocephalic Head and Scalp: normal to inspection External Ear: external ears normal Eyes PERRL General Eye: normal appearance of both eyes Neck full ROM General: normal visual inspection Resp normal respiratory effort Effort and Inspection: able to speak in complete sentences Auscultation: clear to auscultation bilaterally Cardio regular rate and regular rhythm Palpation: normal PMI Rate: regular rate Rhythm: regular rhythm GI Rectal Exam: visual inspection abnormal, fistula and other Other Details: Open wound left buttocks and perirectal may be fistula going on. Back/Spine Back/Spine Narrative: Paralysis from waist down Cervical Spine: cervical ROM normal Pelvis: buttocks abnormal right and other soft tissue findings Wound on her coccyx area Skin no rashes or lesions noted Skin Narrative: Open wounds on left buttocks with positive depth and infection possible sepsis sacral area open area nonhealing and perirectal area possibly a fistula. Wounds: wounds noted Wound Narrative: Open wound on coccyx stage II Right buttocks wound stage IV Neuro oriented x3 Psych Appearance: grossly normal Attitude: calm Activity / Motor Behavior: appropriate eye contact Speech: normal speech Mood & Affect: euthymic mood Thought Process: normal thought process Thought Content: normal thought content Attention / Concentration: attention grossly intact Memory / Cognition: memory grossly intact Insight: insight good Judgement: judgement good Debridement Note Debridement Note Wound debrided: Right buttocks Laterality: Right Wound Grade/Stage: Stage IV Type of Debridement: Selective debridement Anesthesia Used: 5% Lidocaine Gel Depth: in the subcutaneous layer Percentage of wound debrided: 100 Instrument Used: 5mm curette Tissue Removed: Fibrin Severity: Fat Layer Exposed Amount of bleeding with debridement: Mild Bleeding Controlled with: Compression and gauze Patient tolerated procedure: Patient tolerated procedure well Post-Debridement Measurements and Additional Note: Post-Debridement Measurements/Treatment - Nurse 1 - General Ulcer Assessment Start: 09/07/24 10:22 Freq: Status: Active Protocol: JOSEPHINE Activity Type Activity Date Activity User E-sign Co-sign Detail Recorded Client Recorded Date Recorded By Document 09/07/24 10:22 DL [id number] 09/07/24 10:35 DL Document 09/14/24 10:49 RB [id number] 09/14/24 10:53 RB Document 09/21/24 10:42 DL [id number] 09/21/24 10:51 DL 09/07/24 09/14/24 09/21/24 10:22 10:49 10:42 - Today's Visit Information Type of service Follow-up Visit Follow-up Visit Follow-up Visit (Physician/TRANSMISSION SUPERVISOR (Physician/TRANSMISSION SUPERVISOR (Physician/TRANSMISSION SUPERVISOR ) ) ) Arrival Mode Wheelchair Wheelchair Wheelchair Transfer Assistance Manual Manual Transfer Assist (Other) x2 x2 Patient Identification Verified (Name & Yes Yes Yes ) Patient Requires Transmission-Based No No No Precautions Height and Weight Body Mass Index (BMI) 16.9 16.9 16.9 BMI Classification Underweight Underweight Underweight Vital Signs Temperature (97.8 F-99.1 F) 97.8 F 97.6 F L 97.2 F L Temperature Source Temporal Temporal Temporal Pulse Rate (60-100) 79 61 92 Pulse Location Monitor Monitor Monitor Respiratory Rate (12-18) 16 18 18 Respiratory rate source Observation Observation Observation Blood Pressure (90/60-120/80) 128/72 H 130/73 H 122/71 H Blood Pressure Mean (mm Hg) 90 92 88 Source Monitor Monitor Monitor Position Semi-Fowlers Blood Pressure Location Right Arm History Since Last Visit- (Skip if this is Patient's initial visit) Have you changed medications since your No No No last visit? Any new allergies or adverse reactions No No No Had a fall/change in ADL's that may No No No increase risk of falls Signs or symptoms of abuse and/or No No No neglect since last visit Have you been in the hospital since your No No No last visit? Has dressing in place as prescribed Yes Yes Yes Has compression in place as prescribed N/A N/A Yes Has offloadiing in place as prescribed Yes N/A N/A Experienced any changes in pain level or No No No management Pain Scale: 0-10 Numeric Is Patient Pain Free? Yes No Yes FROM WAIST DOWN TO FEET -Description Sharp -Intensity 7 -Duration (hours) Chronic -Pain Behavior No Change in Behavior -Pain Aggravating Factors Changing Position -Alleviating Factors/Interventions Medication -Effectiveness of Alleviating Factor/ Moderately Intervention effective WC - Nurse 1 - General Ulcer Measurement Start: 09/07/24 10:22 Freq: Status: Active Protocol: Activity Type Activity Date Activity User E-sign Co-sign Detail Recorded Client Recorded Date Recorded By Document 09/07/24 10:22 DL [id number] 09/07/24 10:35 DL Document 09/14/24 10:49 RB [id number] 09/14/24 10:53 RB Document 09/21/24 10:42 DL [id number] 09/21/24 10:51 DL 09/07/24 09/14/24 09/21/24 10:22 10:49 10:42 Wound Center Nurse 1 #17- L. Ischium -Current Size (cm) - Length 0 -Current Size (cm) - Width 0 -Current Size (cm) - Depth 0 -Total Square Cm 0 -Photo Taken Yes -Exudate Amt None Present -Wound Margin Flat & Intact -Granulation Amt Large (67-100%) -Granulation Quality [place] -Necrosis Amt None Present (0 %) -Structure Exposed N/A -Texture (Leyla-wound Skin Appearance) Scarring -Moisture (Leyla-wound Skin Appearance) No Abnormality -Color (Leyla-wound Skin Appearance) No Abnormality -Temperature (Leyla-wound Skin No Abnormality Appearance) (Pt Warm) -Tenderness on Palpation (Leyla-wound No Skin Appearance) -Foul Odor after Cleansing No 19. sacral -Combined with other wound No -Current Size (cm) - Length 1.4 1.2 -Current Size (cm) - Width 0.7 0.6 -Current Size (cm) - Depth 0.1 0.1 -Total Square Cm 0.98 0.72 -Photo Taken Yes -Tunneling No -Undermining/Tunneling No -Circular Undermining No -Exudate Amt Medium Small -Exudate Type Serosanguineous -Wound Margin Distinct, Distinct, Outline Outline Attached Attached -Granulation Amt Medium (34-66%) None Present (0 %) -Granulation Quality [place] -Slough/Fibrin Yes -Necrosis Amt Small (1-33%) Large (67-100%) -Necrotic Tissue Type Adherent Slough Adherent Slough -Structure Exposed N/A N/A -Texture (Leyla-wound Skin Appearance) Assessed Scarring -Moisture (Leyla-wound Skin Appearance) Assessed No Abnormality -Color (Leyla-wound Skin Appearance) Erythema No Abnormality -Temperature (Leyla-wound Skin No Abnormality No Abnormality Appearance) (Pt Warm) (Pt Warm) -Tenderness on Palpation (Leyla-wound No No Skin Appearance) -Ulcer Cleansing Wound Cleanser Soap and Water -Foul Odor after Cleansing No No -Anesthetic Used 5% Lidocaine 5% Lidocaine Gel Gel #18 L Grt Toe -Combined with other wound No -Current Size (cm) - Length 1 0.8 0.6 -Current Size (cm) - Width 0.8 1.4 0.6 -Current Size (cm) - Depth 0.1 0.1 0.1 -Total Square Cm 0.8 1.12 0.36 -Photo Taken Yes Yes -Tunneling No -Undermining/Tunneling No -Circular Undermining No -Exudate Amt Medium Medium Medium -Exudate Type Serosanguineous Serosanguineous Yellow/Green -Wound Margin Distinct, Distinct, Distinct, Outline Outline Outline Attached Attached Attached -Granulation Amt Medium (34-66%) Medium (34-66%) Large (67-100%) -Granulation Quality [place] -Slough/Fibrin Yes -Necrosis Amt Medium (34-66%) Small (1-33%) Small (1-33%) -Necrotic Tissue Type Adherent Slough Adherent Slough Adherent Slough -Structure Exposed N/A N/A N/A -Texture (Leyla-wound Skin Appearance) Scarring Assessed Scarring -Moisture (Leyla-wound Skin Appearance) No Abnormality Assessed No Abnormality -Color (Leyla-wound Skin Appearance) No Abnormality Assessed No Abnormality -Temperature (Leyla-wound Skin No Abnormality No Abnormality No Abnormality Appearance) (Pt Warm) (Pt Warm) (Pt Warm) -Tenderness on Palpation (Leyla-wound No No Skin Appearance) -Ulcer Cleansing Soap and Water Wound Cleanser Soap and Water -Foul Odor after Cleansing No No No -Anesthetic Used 5% Lidocaine 5% Lidocaine 5% Lidocaine Gel Gel Gel #14 Right Buttock -Combined with other wound No -Current Size (cm) - Length 2.4 2.6 2 -Current Size (cm) - Width 1.1 0.7 0.6 -Current Size (cm) - Depth 0.1 0.1 0.1 -Total Square Cm 2.64 1.82 1.2 -Photo Taken Yes Yes -Tunneling No -Undermining/Tunneling No -Circular Undermining No -Exudate Amt Medium Medium Medium -Exudate Type Serosanguineous Serosanguineous Serosanguineous -Wound Margin Distinct, Distinct, Distinct, Outline Outline Outline Attached Attached Attached -Granulation Amt Large (67-100%) Medium (34-66%) Large (67-100%) -Granulation Quality Hyper- [place] Hyper- granulation, granulation, [place],Red -Slough/Fibrin Yes -Necrosis Amt None Present (0 Medium (34-66%) Small (1-33%) %) -Necrotic Tissue Type Adherent Slough Adherent Slough -Structure Exposed N/A N/A N/A -Texture (Leyla-wound Skin Appearance) Scarring Assessed Scarring -Moisture (Leyla-wound Skin Appearance) No Abnormality Assessed No Abnormality -Color (Leyla-wound Skin Appearance) No Abnormality Assessed No Abnormality -Temperature (Leyla-wound Skin No Abnormality No Abnormality No Abnormality Appearance) (Pt Warm) (Pt Warm) (Pt Warm) -Tenderness on Palpation (Leyla-wound No No No Skin Appearance) -Ulcer Cleansing Soap and Water Wound Cleanser -Foul Odor after Cleansing No No No -Anesthetic Used 5% Lidocaine 5% Lidocaine 5% Lidocaine Gel Gel Gel -Wound Comment(s) Intact blister noted to R Buttock/Back, states was using a heating pad. WC - Nurse 2 - General Ulcer CM Notes Start: 09/07/24 10:22 Freq: Status: Active Protocol: Activity Type Activity Date Activity User E-sign Co-sign Detail Recorded Client Recorded Date Recorded By Document 09/07/24 10:45 [facility] [id number] 09/07/24 10:57 [facility] Document 09/14/24 11:01 [facility] [id number] 09/14/24 11:12 [facility] Document 09/21/24 10:57 [facility] [id number] 09/21/24 11:19 [facility] 09/07/24 09/14/24 09/21/24 10:45 11:01 10:57 Wound Center Nurse 2 #17- L. Ischium -Time 10:47 -Procedure Performed No -Post Debridement (cm) - Length 0 -Post Debridement (cm) - Width 0 -Post Debridement (cm) - Depth 0 -Total Square (Post) (cm) 0 -Area of Debridement (cm) - Length 0 -Area of Debridement (cm) - Width 0 -Total Square (Area) (cm) 0 -Wound/Ulcer Outcome Healed- Epithelialized -Bleeding Controlled with NA 19. sacral -Time 11:06 10:58 -Correct Patient Yes Yes -Correct Side, Site, Position Yes Yes -Correct Procedure Yes Yes -Procedure Performed Yes Yes -Type of Procedure Debridement Debridement -Clinical Debridement Subcutaneous Subcutaneous -Tissue Removed Subcutaneous Subcutaneous -Post Debridement (cm) - Length 1.5 1.5 -Post Debridement (cm) - Width 1.7 1.1 -Post Debridement (cm) - Depth 0.1 0.1 -Total Square (Post) (cm) 2.55 1.65 -Area of Debridement (cm) - Length 1.5 1.5 -Area of Debridement (cm) - Width 1.7 1.1 -Total Square (Area) (cm) 2.55 1.65 -Tunneling No No -Undermining/Tunneling No No -Circular Undermining No No -Wound/Ulcer Outcome Not Healed Not Healed -Ulcer Cleansing Rinsed/ Rinsed/ Irrigated with Irrigated with Saline Saline -Foul Odor after Cleansing No No -Bioengineered Tissue No No -Bleeding Controlled with Pressure Pressure -Treatment Response Procedure Procedure Tolerated Well Tolerated Well -Debridement - Subq, 1st 20sq cm No Yes #18 L Grt Toe -Time 10:47 11:08 10:59 -Correct Patient Yes Yes -Correct Side, Site, Position Yes Yes -Correct Procedure Yes Yes -Procedure Performed Yes Yes No -Type of Procedure Debridement Debridement -Clinical Debridement Subcutaneous Subcutaneous -Tissue Removed Subcutaneous Subcutaneous -Post Debridement (cm) - Length 1.4 1.3 1 -Post Debridement (cm) - Width 1.8 1.5 1.2 -Post Debridement (cm) - Depth 0.1 0.1 0.1 -Total Square (Post) (cm) 2.52 1.95 1.2 -Area of Debridement (cm) - Length 1.4 1.3 1 -Area of Debridement (cm) - Width 1.8 1.5 1.2 -Total Square (Area) (cm) 2.52 1.95 1.2 -Tunneling No No No -Undermining/Tunneling No No No -Circular Undermining No No No -Wound/Ulcer Outcome Not Healed Not Healed Not Healed -Ulcer Cleansing Rinsed/ Rinsed/ Irrigated with Irrigated with Saline Saline -Foul Odor after Cleansing No No -Bioengineered Tissue No No -Bleeding Controlled with Pressure, Pressure NA Surgifoam ? x 2 3/8 (sm) -Surgifoam (3/4 x 2 3/8) Small 1 -Treatment Response Procedure Procedure Tolerated Well Tolerated Well -Debridement - Subq, 1st 20sq cm Yes No #14 Right Buttock -Time 10:45 11:04 10:59 -Correct Patient Yes Yes Yes -Correct Side, Site, Position Yes Yes Yes -Correct Procedure Yes Yes Yes -Procedure Performed Yes Yes Yes -Type of Procedure Debridement Debridement Debridement -Clinical Debridement Subcutaneous Subcutaneous Subcutaneous -Tissue Removed Subcutaneous Subcutaneous Subcutaneous -Post Debridement (cm) - Length 3 2 2 -Post Debridement (cm) - Width 1 1.5 1.1 -Post Debridement (cm) - Depth 0.1 0.1 0.1 -Total Square (Post) (cm) 3 3.0 2.2 -Area of Debridement (cm) - Length 3 2 2 -Area of Debridement (cm) - Width 1 1.5 1.1 -Total Square (Area) (cm) 3 3.0 2.2 -Tunneling No No No -Undermining/Tunneling No No No -Circular Undermining No No No -Wound/Ulcer Outcome Not Healed Not Healed Not Healed -Ulcer Cleansing Rinsed/ Rinsed/ Rinsed/ Irrigated with Irrigated with Irrigated with Saline Saline Saline -Foul Odor after Cleansing No No No -Bioengineered Tissue No No Yes -Type of Bioengineered Tissue Epifix -Expiration Date 11/01/28 -Product Lot Number [id number] -Percent Used 100 -Lot number of Saline Used [id number] -Bleeding Controlled with Pressure Pressure,Silver Pressure Nitrate ($) -Treatment Response Procedure Procedure Procedure Tolerated Well Tolerated Well Tolerated Well -Pressure Reduction Wheelchair cushion, Specialty bed -Debridement - Subq, 1st 20sq cm No Yes No -Apply Skin Sub - 1st 25 sq cm - Legs 1 -Epifix Application 1-4 (per sq cm) 4 Pain Scale: 0-10 Numeric Is Patient Pain Free? Yes Yes Yes WC - Nurse 3 - General Ulcer D/C NN Start: 09/07/24 10:22 Freq: Status: Active Protocol: Activity Type Activity Date Activity User E-sign Co-sign Detail Recorded Client Recorded Date Recorded By Document 09/07/24 11:14 DL [id number] 09/07/24 11:19 DL Document 09/14/24 11:28 DL [id number] 09/14/24 11:31 DL Document 09/21/24 11:30 MT [id number] 09/21/24 11:39 MT 09/07/24 09/14/24 09/21/24 11:14 11:28 11:30 Wound Care Center Nurse 3 19. sacral -Ulcer Cleansing Rinsed/ Rinsed/ Irrigated with Irrigated with Saline Saline -Foul Odor after Cleansing No No -Primary Dressing Applied Fibracol Plus Silicone Border 4x4,NonAdherent Foam 4x4 Contact Layer, Silicone Border Foam 4x4 -Other Dressing FLuffed gauze -Fibracol Plus 4x4 1 -Silicone Border Foam 4x4 1 1 #18 L Grt Toe -Ulcer Cleansing Rinsed/ Rinsed/ Irrigated with Irrigated with Saline Saline -Foul Odor after Cleansing No No No -Primary Dressing Applied Silicone Border NonAdherent Silicone Border Foam 4x4 Contact Layer, Foam 4x4 Silicone Border Foam 4x4 -Other Dressing Surgaf[place]am today fibracol xeroform/ gauze / apperture pad -Silicone Border Foam 4x4 1 1 1 #14 Right Buttock -Ulcer Cleansing Rinsed/ Rinsed/ Not Cleansed Irrigated with Irrigated with Saline Saline -Foul Odor after Cleansing No No No -Primary Dressing Applied Promogran, Promogran, Silicone Border Silicone Border Silicone Border Foam 4x4 Foam 4x4, Foam 4x4 Silicone Border Foam 6x6 -Other Dressing Epifix/ fluffed gauze/ -Promogran 1 1 -Silicone Border Foam 4x4 1 1 1 -Silicone Border Foam 6x6 1 -Wound Comment(s) Skin prep and 4x4 silicone border dressing to blister. 2 border foam noted on R Buttocks nurse 3. Treatment Response Procedure Procedure Tolerated Well Tolerated Well Pain Scale: 0-10 Numeric Is Patient Pain Free? Yes Yes Yes WC - Visit Discharge Discharge Condition Stable Stable Stable Ambulatory Status Wheelchair Wheelchair Transportation Private Auto Private Auto Trans Notes: Dressing Dressings applied today applied today per Nora Hollis. per Jessica Tsang. Facility Type Issuer Group Home Health Facility Orders Sent Yes Yes Yes Additional Wound Wound Grade/Stage: Stage II Additional Wound Wound debrided: Left sacral blister Type of Debridement: Excisional debridement Anesthesia Used: 5% Lidocaine Gel Depth: Down to and including healthy tissue Percentage of wound debrided: 100 Instrument Used: 5mm curette Tissue Removed: Fibrin Severity: Limited To Skin Breakdown Amount of bleeding with debridement: Mild Bleeding Controlled with: Compression and gauze Patient tolerated procedure: Patient tolerated procedure well Assessment/Plan Assessment/Plan (1) Decubitus ulcer of sacral region, stage 2: CODE(S): L89.152 - Pressure ulcer of sacral region, stage 2 PLAN: Wound resolved and patient is to just sure prep pad and protect (2) Decubitus ulcer of toe, stage 2: CODE(S): L89.892 - Pressure ulcer of other site, stage 2 QUALIFIERS: Laterality: left Qualified Code(s): L89.892 - Pressure ulcer of other site, stage 2 PLAN: Wash area with Dial soap and pat dry with water and apply Xeroform and Adaptic with a foam dressing over top every day Follow-up 1 week (3) Chronic anemia: CODE(S): D64.9 - Anemia, unspecified PLAN: Continue ferrous sulfate 325 mg to twice a day with stool softeners B12 injections 1000 mcg q. weekly Improved immensely she said at normal rate at this time (4) Decubitus ulcer of right buttock, stage 4: CODE(S): L89.314 - Pressure ulcer of right buttock, stage 4 PLAN: EpiFix #5 was applied to the right buttocks area and we will see how that works follow-up in a week (5) Skin ulcer of left great toe: CODE(S): L97.529 - Non-pressure chronic ulcer of other part of left foot with unspecified severity QUALIFIERS: Non-pressure ulcer stage: limited to breakdown of skin Qualified Code(s): L97.521 - Non-pressure chronic ulcer of other part of left foot limited to breakdown of skin (6) Decubitus ulcer of left ischium, stage 2: CODE(S): L89.322 - Pressure ulcer of left buttock, stage 2 PLAN: Resolved and monitor may use Skin-Prep as needed (7) Ulcer of anus: CODE(S): K62.6 - Ulcer of anus and rectum PLAN: Resolved and monitor use Skin-Prep as needed (8) Non-pressure chronic ulcer of buttock: CODE(S): L98.419 - Non-pressure chronic ulcer of buttock with unspecified severity QUALIFIERS: Non-pressure ulcer stage: limited to breakdown of skin Qualified Code(s): L98.411 - Non-pressure chronic ulcer of buttock limited to breakdown of skin PLAN: Wash area with antibacterial soap and water and apply Fibracol with Adaptic over top and a foam SAP [place] dressing every day follow-up in 1 week
[2024-09-28 11:01] VITALS: BP 113/65; PULSE 61; RESP 18; TEMP 36.3; BMI 16.9
--- NOTE | 2024-09-28 12:25 | PN.PCM_ITS ---
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 Patient underwent treatment for colitis as an inpatient in March 2024 and developed a right ischial pressure ulcer. It was debrided twice at [facility]. She has been following for wound care with a nurse practitioner in the wound care center, who referred her to me for second opinion to see if she needs surgery. Patient lives at home in an apartment usually by herself. She does not have a pressure offloading bed. She is quite high functioning; however, she is currently in a nursing facility for wound care ever since the recent hospital admission. 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 She has an adult daughter in [place] and an adult daughter here in [place] who are both very involved and supportive. Progress of Wound: Right ischium wound is healed. She developed a blister from putting a heating pad on her sacral Area because she was cold. The size of the area is about the size of a quarter . We continue to use fibber call with Adaptic and absorbent dressing over top The left great toe hallux is open but improved this week with the aperture around it. Again and we feel it is from her laying on her stomach and she is not padding it properly and putting a shoe or a sock or a foam dressing over top of that the protected and she is opening it. We will change to Xeroform and Adaptic and maybe use some stasis pads over to see if that helps protect it. Right buttocks doing well on the epi fix again and we will continue with #6 today much smaller just needs to get skin over top. Subjective Subjective Patient is pleased with outcomes Objective Data Objective Data All areas are improving buttocks looks really good we will continue using EpiFix till finishes it but the layer of skin everything is down to just top layer skin. No sign of infections patient is eating her and drinking all of her supplemental drinks and trying against offloading very well. Vital Signs: Vital Signs Temp Pulse Resp BP 97.4 F L 61 18 113/65 09/28/24 11:01 09/28/24 11:01 09/28/24 11:09/28/24 11:01 Weight: 89 lb 6.4 oz Body Mass Index (BMI) 16.9 Physical Exam Const oriented x3 General Appearance: cooperative Orientation / Consciousness: oriented to person, oriented to place and oriented to time Exam Limitations: no limitations Nutritional Appearance: cachectic, underweight and thin HEENT normocephalic Head and Scalp: normal to inspection External Ear: external ears normal Eyes PERRL General Eye: normal appearance of both eyes Neck full ROM General: normal visual inspection Resp normal respiratory effort Effort and Inspection: able to speak in complete sentences Auscultation: clear to auscultation bilaterally Cardio regular rate and regular rhythm Palpation: normal PMI Rate: regular rate Rhythm: regular rhythm GI Rectal Exam: visual inspection abnormal, fistula and other Other Details: Open wound left buttocks and perirectal may be fistula going on. Back/Spine Back/Spine Narrative: Paralysis from waist down Cervical Spine: cervical ROM normal Pelvis: buttocks abnormal right and other soft tissue findings Wound on her coccyx area Skin no rashes or lesions noted Skin Narrative: Open wounds on left buttocks with positive depth and infection possible sepsis sacral area open area nonhealing and perirectal area possibly a fistula. Wounds: wounds noted Wound Narrative: Open wound on coccyx stage II Right buttocks wound stage IV Neuro oriented x3 Psych Appearance: grossly normal Attitude: calm Activity / Motor Behavior: appropriate eye contact Speech: normal speech Mood & Affect: euthymic mood Thought Process: normal thought process Thought Content: normal thought content Attention / Concentration: attention grossly intact Memory / Cognition: memory grossly intact Insight: insight good Judgement: judgement good Debridement Note Debridement Note Wound debrided: Right buttocks Laterality: Right Wound Grade/Stage: Stage IV Type of Debridement: Selective debridement Anesthesia Used: 5% Lidocaine Gel Depth: in the subcutaneous layer Percentage of wound debrided: 100 Instrument Used: 5mm curette Tissue Removed: Fibrin Severity: Fat Layer Exposed Amount of bleeding with debridement: Mild Bleeding Controlled with: Compression and gauze Patient tolerated procedure: Patient tolerated procedure well Post-Debridement Measurements and Additional Note: Post-Debridement Measurements/Treatment - Nurse 1 - General Ulcer Assessment Start: 09/07/24 10:22 Freq: Status: Active Protocol: JOSEPHINE Activity Type Activity Date Activity User E-sign Co-sign Detail Recorded Client Recorded Date Recorded By Document 09/07/24 10:22 DL [id number] 09/07/24 10:35 DL Document 09/14/24 10:49 RB [id number] 09/14/24 10:53 RB Document 09/21/24 10:42 DL [id number] 09/21/24 10:51 DL Document 09/28/24 11:01 RB [id number] 09/28/24 11:05 RB 09/07/24 09/14/24 09/21/24 10:22 10:49 10:42 - Today's Visit Information Type of service Follow-up Visit Follow-up Visit Follow-up Visit (Physician/PAINTER AND DECORATOR APPRENTICE (Physician/PAINTER AND DECORATOR APPRENTICE (Physician/PAINTER AND DECORATOR APPRENTICE ) ) ) Arrival Mode Wheelchair Wheelchair Wheelchair Transfer Assistance Manual Manual Transfer Assist (Other) x2 x2 Patient Identification Verified (Name & Yes Yes Yes ) Patient Requires Transmission-Based No No No Precautions Height and Weight Body Mass Index (BMI) 16.9 16.9 16.9 BMI Classification Underweight Underweight Underweight Vital Signs Temperature (97.8 F-99.1 F) 97.8 F 97.6 F L 97.2 F L Temperature Source Temporal Temporal Temporal Pulse Rate (60-100) 79 61 92 Pulse Location Monitor Monitor Monitor Respiratory Rate (12-18) 16 18 18 Respiratory rate source Observation Observation Observation Blood Pressure (90/60-120/80) 128/72 H 130/73 H 122/71 H Blood Pressure Mean (mm Hg) 90 92 88 Source Monitor Monitor Monitor Position Semi-Fowlers Blood Pressure Location Right Arm History Since Last Visit- (Skip if this is Patient's initial visit) Have you changed medications since your No No No last visit? Any new allergies or adverse reactions No No No Had a fall/change in ADL's that may No No No increase risk of falls Signs or symptoms of abuse and/or No No No neglect since last visit Have you been in the hospital since your No No No last visit? Has dressing in place as prescribed Yes Yes Yes Has compression in place as prescribed N/A N/A Yes Has offloadiing in place as prescribed Yes N/A N/A Experienced any changes in pain level or No No No management Pain Scale: 0-10 Numeric Is Patient Pain Free? Yes No Yes FROM WAIST DOWN TO FEET -Description Sharp -Intensity 7 -Duration (hours) Chronic -Pain Behavior No Change in Behavior -Pain Aggravating Factors Changing Position -Alleviating Factors/Interventions Medication -Effectiveness of Alleviating Factor/ Moderately Intervention effective 09/28/24 11:01 WC - Today's Visit Information Type of service Follow-up Visit (Physician/PAINTER AND DECORATOR APPRENTICE ) Arrival Mode Wheelchair Transfer Assistance Manual Transfer Assist (Other) Patient Identification Verified (Name & Yes ) Patient Requires Transmission-Based No Precautions Height and Weight Body Mass Index (BMI) 16.9 BMI Classification Underweight Vital Signs Temperature (97.8 F-99.1 F) 97.4 F L Temperature Source Temporal Pulse Rate (60-100) 61 Pulse Location Monitor Respiratory Rate (12-18) 18 Respiratory rate source Observation Blood Pressure (90/60-120/80) 113/65 Blood Pressure Mean (mm Hg) 81 Source Monitor Position Semi-Fowlers Blood Pressure Location Left Arm History Since Last Visit- (Skip if this is Patient's initial visit) Have you changed medications since your No last visit? Any new allergies or adverse reactions No Had a fall/change in ADL's that may No increase risk of falls Signs or symptoms of abuse and/or No neglect since last visit Have you been in the hospital since your No last visit? Has dressing in place as prescribed Yes Has compression in place as prescribed N/A Has offloadiing in place as prescribed N/A Experienced any changes in pain level or No management Pain Scale: 0-10 Numeric Is Patient Pain Free? Yes FROM WAIST DOWN TO FEET -Description -Intensity -Duration (hours) -Pain Behavior -Pain Aggravating Factors -Alleviating Factors/Interventions -Effectiveness of Alleviating Factor/ Intervention - Nurse 1 - General Ulcer Measurement Start: 09/07/24 10:22 Freq: Status: Active Protocol: Activity Type Activity Date Activity User E-sign Co-sign Detail Recorded Client Recorded Date Recorded By Document 09/07/24 10:22 DL [id number] 09/07/24 10:35 DL Document 09/14/24 10:49 RB [id number] 09/14/24 10:53 RB Document 09/21/24 10:42 DL [id number] 09/21/24 10:51 DL Document 09/28/24 11:01 RB [id number] 09/28/24 11:05 RB 09/07/24 09/14/24 09/21/24 10:22 10:49 10:42 Wound Center Nurse 1 #17- L. Ischium -Current Size (cm) - Length 0 -Current Size (cm) - Width 0 -Current Size (cm) - Depth 0 -Total Square Cm 0 -Photo Taken Yes -Exudate Amt None Present -Wound Margin Flat & Intact -Granulation Amt Large (67-100%) -Granulation Quality [place] -Necrosis Amt None Present (0 %) -Structure Exposed N/A -Texture (Leyla-wound Skin Appearance) Scarring -Moisture (Leyla-wound Skin Appearance) No Abnormality -Color (Leyla-wound Skin Appearance) No Abnormality -Temperature (Leyla-wound Skin No Abnormality Appearance) (Pt Warm) -Tenderness on Palpation (Leyla-wound No Skin Appearance) -Foul Odor after Cleansing No 19. sacral -Combined with other wound No -Current Size (cm) - Length 1.4 1.2 -Current Size (cm) - Width 0.7 0.6 -Current Size (cm) - Depth 0.1 0.1 -Total Square Cm 0.98 0.72 -Photo Taken Yes -Tunneling No -Undermining/Tunneling No -Circular Undermining No -Exudate Amt Medium Small -Exudate Type Serosanguineous -Wound Margin Distinct, Distinct, Outline Outline Attached Attached -Granulation Amt Medium (34-66%) None Present (0 %) -Granulation Quality [place] -Slough/Fibrin Yes -Necrosis Amt Small (1-33%) Large (67-100%) -Necrotic Tissue Type Adherent Slough Adherent Slough -Structure Exposed N/A N/A -Texture (Leyla-wound Skin Appearance) Assessed Scarring -Moisture (Leyla-wound Skin Appearance) Assessed No Abnormality -Color (Leyla-wound Skin Appearance) Erythema No Abnormality -Temperature (Leyla-wound Skin No Abnormality No Abnormality Appearance) (Pt Warm) (Pt Warm) -Tenderness on Palpation (Leyla-wound No No Skin Appearance) -Ulcer Cleansing Wound Cleanser Soap and Water -Foul Odor after Cleansing No No -Anesthetic Used 5% Lidocaine 5% Lidocaine Gel Gel #18 L Grt Toe -Combined with other wound No -Current Size (cm) - Length 1 0.8 0.6 -Current Size (cm) - Width 0.8 1.4 0.6 -Current Size (cm) - Depth 0.1 0.1 0.1 -Total Square Cm 0.8 1.12 0.36 -Photo Taken Yes Yes -Tunneling No -Undermining/Tunneling No -Circular Undermining No -Exudate Amt Medium Medium Medium -Exudate Type Serosanguineous Serosanguineous Yellow/Green -Wound Margin Distinct, Distinct, Distinct, Outline Outline Outline Attached Attached Attached -Granulation Amt Medium (34-66%) Medium (34-66%) Large (67-100%) -Granulation Quality [place] -Slough/Fibrin Yes -Necrosis Amt Medium (34-66%) Small (1-33%) Small (1-33%) -Necrotic Tissue Type Adherent Slough Adherent Slough Adherent Slough -Structure Exposed N/A N/A N/A -Texture (Leyla-wound Skin Appearance) Scarring Assessed Scarring -Moisture (Leyla-wound Skin Appearance) No Abnormality Assessed No Abnormality -Color (Leyla-wound Skin Appearance) No Abnormality Assessed No Abnormality -Temperature (Leyla-wound Skin No Abnormality No Abnormality No Abnormality Appearance) (Pt Warm) (Pt Warm) (Pt Warm) -Tenderness on Palpation (Leyla-wound No No Skin Appearance) -Ulcer Cleansing Soap and Water Wound Cleanser Soap and Water -Foul Odor after Cleansing No No No -Anesthetic Used 5% Lidocaine 5% Lidocaine 5% Lidocaine Gel Gel Gel #14 Right Buttock -Combined with other wound No -Current Size (cm) - Length 2.4 2.6 2 -Current Size (cm) - Width 1.1 0.7 0.6 -Current Size (cm) - Depth 0.1 0.1 0.1 -Total Square Cm 2.64 1.82 1.2 -Photo Taken Yes Yes -Tunneling No -Undermining/Tunneling No -Circular Undermining No -Exudate Amt Medium Medium Medium -Exudate Type Serosanguineous Serosanguineous Serosanguineous -Wound Margin Distinct, Distinct, Distinct, Outline Outline Outline Attached Attached Attached -Granulation Amt Large (67-100%) Medium (34-66%) Large (67-100%) -Granulation Quality Hyper- [place] Hyper- granulation, granulation, [place],Red -Slough/Fibrin Yes -Necrosis Amt None Present (0 Medium (34-66%) Small (1-33%) %) -Necrotic Tissue Type Adherent Slough Adherent Slough -Structure Exposed N/A N/A N/A -Texture (Leyla-wound Skin Appearance) Scarring Assessed Scarring -Moisture (Leyla-wound Skin Appearance) No Abnormality Assessed No Abnormality -Color (Leyla-wound Skin Appearance) No Abnormality Assessed No Abnormality -Temperature (Leyla-wound Skin No Abnormality No Abnormality No Abnormality Appearance) (Pt Warm) (Pt Warm) (Pt Warm) -Tenderness on Palpation (Leyla-wound No No No Skin Appearance) -Ulcer Cleansing Soap and Water Wound Cleanser -Foul Odor after Cleansing No No No -Anesthetic Used 5% Lidocaine 5% Lidocaine 5% Lidocaine Gel Gel Gel -Wound Comment(s) Intact blister noted to R Buttock/Back, states was using a heating pad. 09/28/24 11:01 Wound Center Nurse 1 #17- L. Ischium -Current Size (cm) - Length -Current Size (cm) - Width -Current Size (cm) - Depth -Total Square Cm -Photo Taken -Exudate Amt -Wound Margin -Granulation Amt -Granulation Quality -Necrosis Amt -Structure Exposed -Texture (Leyla-wound Skin Appearance) -Moisture (Leyla-wound Skin Appearance) -Color (Leyla-wound Skin Appearance) -Temperature (Leyla-wound Skin Appearance) -Tenderness on Palpation (Leyla-wound Skin Appearance) -Foul Odor after Cleansing 19. sacral -Combined with other wound No -Current Size (cm) - Length 1 -Current Size (cm) - Width 0.8 -Current Size (cm) - Depth 0.1 -Total Square Cm 0.8 -Photo Taken Yes -Tunneling No -Undermining/Tunneling No -Circular Undermining No -Exudate Amt Medium -Exudate Type Serosanguineous -Wound Margin Distinct, Outline Attached -Granulation Amt Medium (34-66%) -Granulation Quality [place] -Slough/Fibrin Yes -Necrosis Amt Small (1-33%) -Necrotic Tissue Type Adherent Slough -Structure Exposed N/A -Texture (Leyla-wound Skin Appearance) Assessed -Moisture (Leyla-wound Skin Appearance) Assessed -Color (Leyla-wound Skin Appearance) Erythema -Temperature (Leyla-wound Skin No Abnormality Appearance) (Pt Warm) -Tenderness on Palpation (Leyla-wound No Skin Appearance) -Ulcer Cleansing Wound Cleanser -Foul Odor after Cleansing No -Anesthetic Used #18 L Grt Toe -Combined with other wound No -Current Size (cm) - Length 0.6 -Current Size (cm) - Width 0.6 -Current Size (cm) - Depth 0.1 -Total Square Cm 0.36 -Photo Taken Yes -Tunneling No -Undermining/Tunneling No -Circular Undermining No -Exudate Amt Small -Exudate Type Serosanguineous -Wound Margin Distinct, Outline Attached -Granulation Amt Large (67-100%) -Granulation Quality [place] -Slough/Fibrin Yes -Necrosis Amt Small (1-33%) -Necrotic Tissue Type Adherent Slough -Structure Exposed N/A -Texture (Leyla-wound Skin Appearance) Assessed -Moisture (Leyla-wound Skin Appearance) Assessed -Color (Leyla-wound Skin Appearance) Assessed -Temperature (Leyla-wound Skin No Abnormality Appearance) (Pt Warm) -Tenderness on Palpation (Leyla-wound No Skin Appearance) -Ulcer Cleansing Wound Cleanser -Foul Odor after Cleansing No -Anesthetic Used #14 Right Buttock -Combined with other wound No -Current Size (cm) - Length 1.5 -Current Size (cm) - Width 0.6 -Current Size (cm) - Depth 0.1 -Total Square Cm 0.90 -Photo Taken Yes -Tunneling No -Undermining/Tunneling No -Circular Undermining No -Exudate Amt Medium -Exudate Type Serosanguineous -Wound Margin Distinct, Outline Attached -Granulation Amt Medium (34-66%) -Granulation Quality [place] -Slough/Fibrin Yes -Necrosis Amt Medium (34-66%) -Necrotic Tissue Type Adherent Slough -Structure Exposed N/A -Texture (Leyla-wound Skin Appearance) Assessed, Scarring -Moisture (Leyla-wound Skin Appearance) Assessed -Color (Leyla-wound Skin Appearance) Assessed -Temperature (Leyla-wound Skin No Abnormality Appearance) (Pt Warm) -Tenderness on Palpation (Leyla-wound No Skin Appearance) -Ulcer Cleansing Wound Cleanser -Foul Odor after Cleansing No -Anesthetic Used -Wound Comment(s) WC - Nurse 2 - General Ulcer CM Notes Start: 09/07/24 10:22 Freq: Status: Active Protocol: Activity Type Activity Date Activity User E-sign Co-sign Detail Recorded Client Recorded Date Recorded By Document 09/07/24 10:45 BM [id number] 09/07/24 10:57 BM Document 09/14/24 11:01 BMF [id number] 09/14/24 11:12 BM Document 09/21/24 10:57 [employer] [id number] 09/21/24 11:19 BM Document 09/28/24 11:23 BMF [id number] 09/28/24 11:37 BMF 09/07/24 09/14/24 09/21/24 10:45 11:01 10:57 Wound Center Nurse 2 #17- L. Ischium -Time 10:47 -Procedure Performed No -Post Debridement (cm) - Length 0 -Post Debridement (cm) - Width 0 -Post Debridement (cm) - Depth 0 -Total Square (Post) (cm) 0 -Area of Debridement (cm) - Length 0 -Area of Debridement (cm) - Width 0 -Total Square (Area) (cm) 0 -Wound/Ulcer Outcome Healed- Epithelialized -Bleeding Controlled with NA 19. sacral -Time 11:06 10:58 -Correct Patient Yes Yes -Correct Side, Site, Position Yes Yes -Correct Procedure Yes Yes -Procedure Performed Yes Yes -Type of Procedure Debridement Debridement -Clinical Debridement Subcutaneous Subcutaneous -Tissue Removed Subcutaneous Subcutaneous -Post Debridement (cm) - Length 1.5 1.5 -Post Debridement (cm) - Width 1.7 1.1 -Post Debridement (cm) - Depth 0.1 0.1 -Total Square (Post) (cm) 2.55 1.65 -Area of Debridement (cm) - Length 1.5 1.5 -Area of Debridement (cm) - Width 1.7 1.1 -Total Square (Area) (cm) 2.55 1.65 -Tunneling No No -Undermining/Tunneling No No -Circular Undermining No No -Wound/Ulcer Outcome Not Healed Not Healed -Ulcer Cleansing Rinsed/ Rinsed/ Irrigated with Irrigated with Saline Saline -Foul Odor after Cleansing No No -Bioengineered Tissue No No -Bleeding Controlled with Pressure Pressure -Treatment Response Procedure Procedure Tolerated Well Tolerated Well -Debridement - Subq, 1st 20sq cm No Yes #18 L Grt Toe -Time 10:47 11:08 10:59 -Correct Patient Yes Yes -Correct Side, Site, Position Yes Yes -Correct Procedure Yes Yes -Procedure Performed Yes Yes No -Type of Procedure Debridement Debridement -Clinical Debridement Subcutaneous Subcutaneous -Tissue Removed Subcutaneous Subcutaneous -Post Debridement (cm) - Length 1.4 1.3 1 -Post Debridement (cm) - Width 1.8 1.5 1.2 -Post Debridement (cm) - Depth 0.1 0.1 0.1 -Total Square (Post) (cm) 2.52 1.95 1.2 -Area of Debridement (cm) - Length 1.4 1.3 1 -Area of Debridement (cm) - Width 1.8 1.5 1.2 -Total Square (Area) (cm) 2.52 1.95 1.2 -Tunneling No No No -Undermining/Tunneling No No No -Circular Undermining No No No -Wound/Ulcer Outcome Not Healed Not Healed Not Healed -Ulcer Cleansing Rinsed/ Rinsed/ Irrigated with Irrigated with Saline Saline -Foul Odor after Cleansing No No -Bioengineered Tissue No No -Bleeding Controlled with Pressure, Pressure NA Surgifoam ? x 2 3/8 () -Surgifoam (3/4 x 2 3/8) Small 1 -Treatment Response Procedure Procedure Tolerated Well Tolerated Well -Debridement - Open, 1st 20sq cm -Debridement - Subq, 1st 20sq cm Yes No #14 Right Buttock -Time 10:45 11:04 10:59 -Correct Patient Yes Yes Yes -Correct Side, Site, Position Yes Yes Yes -Correct Procedure Yes Yes Yes -Procedure Performed Yes Yes Yes -Type of Procedure Debridement Debridement Debridement -Clinical Debridement Subcutaneous Subcutaneous Subcutaneous -Tissue Removed Subcutaneous Subcutaneous Subcutaneous -Post Debridement (cm) - Length 3 2 2 -Post Debridement (cm) - Width 1 1.5 1.1 -Post Debridement (cm) - Depth 0.1 0.1 0.1 -Total Square (Post) (cm) 3 3.0 2.2 -Area of Debridement (cm) - Length 3 2 2 -Area of Debridement (cm) - Width 1 1.5 1.1 -Total Square (Area) (cm) 3 3.0 2.2 -Tunneling No No No -Undermining/Tunneling No No No -Circular Undermining No No No -Wound/Ulcer Outcome Not Healed Not Healed Not Healed -Ulcer Cleansing Rinsed/ Rinsed/ Rinsed/ Irrigated with Irrigated with Irrigated with Saline Saline Saline -Foul Odor after Cleansing No No No -Bioengineered Tissue No No Yes -Type of Bioengineered Tissue Epifix -Expiration Date 11/01/28 -Product Lot Number [id number] -Percent Used 100 -Lot number of Saline Used [id number] -Bleeding Controlled with Pressure Pressure,Silver Pressure Nitrate ($) -Treatment Response Procedure Procedure Procedure Tolerated Well Tolerated Well Tolerated Well -Pressure Reduction Wheelchair cushion, Specialty bed -Debridement - Subq, 1st 20sq cm No Yes No -Apply Skin Sub - 1st 25 sq cm - Legs 1 -Epifix Application 1-4 (per sq cm) 4 -Epifix 18mm Disc Application 1-4 Pain Scale: 0-10 Numeric Is Patient Pain Free? Yes Yes Yes 09/28/24 11:23 Wound Center Nurse 2 #17- Kushal Ischium -Time -Procedure Performed -Post Debridement (cm) - Length -Post Debridement (cm) - Width -Post Debridement (cm) - Depth -Total Square (Post) (cm) -Area of Debridement (cm) - Length -Area of Debridement (cm) - Width -Total Square (Area) (cm) -Wound/Ulcer Outcome -Bleeding Controlled with 19. sacral -Time 11:30 -Correct Patient Yes -Correct Side, Site, Position Yes -Correct Procedure Yes -Procedure Performed Yes -Type of Procedure Debridement -Clinical Debridement Subcutaneous -Tissue Removed Subcutaneous -Post Debridement (cm) - Length 1.3 -Post Debridement (cm) - Width 1 -Post Debridement (cm) - Depth 0.1 -Total Square (Post) (cm) 1.3 -Area of Debridement (cm) - Length 1.3 -Area of Debridement (cm) - Width 1 -Total Square (Area) (cm) 1.3 -Tunneling No -Undermining/Tunneling No -Circular Undermining No -Wound/Ulcer Outcome Not Healed -Ulcer Cleansing Rinsed/ Irrigated with Saline -Foul Odor after Cleansing No -Bioengineered Tissue No -Bleeding Controlled with Pressure -Treatment Response Procedure Tolerated Well -Debridement - Subq, 1st 20sq cm Yes #18 L Grt Toe -Time 11:23 -Correct Patient Yes -Correct Side, Site, Position Yes -Correct Procedure Yes -Procedure Performed Yes -Type of Procedure Debridement -Clinical Debridement Epidermis / Dermis -Tissue Removed Epidermis, Dermis -Post Debridement (cm) - Length 0.3 -Post Debridement (cm) - Width 0.3 -Post Debridement (cm) - Depth 0.1 -Total Square (Post) (cm) 0.09 -Area of Debridement (cm) - Length 0.3 -Area of Debridement (cm) - Width 0.3 -Total Square (Area) (cm) 0.09 -Tunneling No -Undermining/Tunneling No -Circular Undermining No -Wound/Ulcer Outcome Not Healed -Ulcer Cleansing Rinsed/ Irrigated with Saline -Foul Odor after Cleansing No -Bioengineered Tissue No -Bleeding Controlled with Pressure -Surgifoam (3/4 x 2 3/8) Small -Treatment Response Procedure Tolerated Well -Debridement - Open, 1st 20sq cm Yes -Debridement - Subq, 1st 20sq cm #14 Right Buttock -Time 11:28 -Correct Patient Yes -Correct Side, Site, Position Yes -Correct Procedure Yes -Procedure Performed Yes -Type of Procedure Debridement -Clinical Debridement Subcutaneous -Tissue Removed Subcutaneous -Post Debridement (cm) - Length 2 -Post Debridement (cm) - Width 0.8 -Post Debridement (cm) - Depth 0.1 -Total Square (Post) (cm) 1.6 -Area of Debridement (cm) - Length 2 -Area of Debridement (cm) - Width 0.8 -Total Square (Area) (cm) 1.6 -Tunneling No -Undermining/Tunneling No -Circular Undermining No -Wound/Ulcer Outcome Not Healed -Ulcer Cleansing Rinsed/ Irrigated with Saline -Foul Odor after Cleansing No -Bioengineered Tissue Yes -Type of Bioengineered Tissue Epifix 18mm Disc -Expiration Date 05/04/29 -Product Lot Number [id number] -Percent Used 100 -Lot number of Saline Used [id number] -Bleeding Controlled with Pressure -Treatment Response Procedure Tolerated Well -Pressure Reduction -Debridement - Subq, 1st 20sq cm No -Apply Skin Sub - 1st 25 sq cm - Legs 1 -Epifix Application 1-4 (per sq cm) -Epifix 18mm Disc Application 1-4 3 Pain Scale: 0-10 Numeric Is Patient Pain Free? Yes WC - Nurse 3 - General Ulcer D/C NN Start: 09/07/24 10:22 Freq: Status: Active Protocol: Activity Type Activity Date Activity User E-sign Co-sign Detail Recorded Client Recorded Date Recorded By Document 09/07/24 11:14 DL [id number] 09/07/24 11:19 DL Document 09/14/24 11:28 DL [id number] 09/14/24 11:31 DL Document 09/21/24 11:30 MT [id number] 09/21/24 11:39 MT Document 09/28/24 12:03 RB [id number] 09/28/24 12:05 RB 09/07/24 09/14/24 09/21/24 11:14 11:28 11:30 Wound Care Center Nurse 3 19. sacral -Ulcer Cleansing Rinsed/ Rinsed/ Irrigated with Irrigated with Saline Saline -Foul Odor after Cleansing No No -Primary Dressing Applied Fibracol Plus Silicone Border 4x4,NonAdherent Foam 4x4 Contact Layer, Silicone Border Foam 4x4 -Other Dressing FLuffed gauze -Primary Dressing Covered/Secured with -Fibracol Plus 4x4 1 -Silicone Border Foam 4x4 1 1 #18 L Grt Toe -Ulcer Cleansing Rinsed/ Rinsed/ Irrigated with Irrigated with Saline Saline -Foul Odor after Cleansing No No No -Primary Dressing Applied Silicone Border NonAdherent Silicone Border Foam 4x4 Contact Layer, Foam 4x4 Silicone Border Foam 4x4 -Other Dressing Surgafoam today fibracol xeroform/ gauze / apperture pad -Silicone Border Foam 4x4 1 1 1 #14 Right Buttock -Ulcer Cleansing Rinsed/ Rinsed/ Not Cleansed Irrigated with Irrigated with Saline Saline -Foul Odor after Cleansing No No No -Primary Dressing Applied Promogran, Promogran, Silicone Border Silicone Border Silicone Border Foam 4x4 Foam 4x4, Foam 4x4 Silicone Border Foam 6x6 -Other Dressing Epifix/ fluffed gauze/ -Primary Dressing Covered/Secured with -Promogran 1 1 -Silicone Border Foam 4x4 1 1 1 -Silicone Border Foam 6x6 1 -Wound Comment(s) Skin prep and 4x4 silicone border dressing to blister. 2 border foam noted on R Buttocks nurse 3. Treatment Response Procedure Procedure Tolerated Well Tolerated Well Pain Scale: 0-10 Numeric Is Patient Pain Free? Yes Yes Yes WC - Visit Discharge Discharge Condition Stable Stable Stable Ambulatory Status Wheelchair Wheelchair Transportation Private Auto Private Auto Trans Medication Reconcilliation completed & provided to patient/care provider Clinical Summary of Care Provided Notes: Dressing Dressings applied today applied today per Nora Hollis. per Jessica Tsang[facility] Orders Sent Yes Yes Yes 09/28/24 12:03 Wound Care Center Nurse 3 19. sacral -Ulcer Cleansing Rinsed/ Irrigated with Saline -Foul Odor after Cleansing -Primary Dressing Applied Silicone Border Foam 4x4 -Other Dressing -Primary Dressing Covered/Secured with Dry Gauze -Fibracol Plus 4x4 -Silicone Border Foam 4x4 1 #18 L Grt Toe -Ulcer Cleansing Rinsed/ Irrigated with Saline -Foul Odor after Cleansing -Primary Dressing Applied Silicone Border Foam 4x4 -Other Dressing xeroform/ mepilex/ apperture pad -Silicone Border Foam 4x4 1 #14 Right Buttock -Ulcer Cleansing -Foul Odor after Cleansing -Primary Dressing Applied Silicone Border Foam 6x6 -Other Dressing -Primary Dressing Covered/Secured with Dry Gauze -Promogran -Silicone Border Foam 4x4 -Silicone Border Foam 6x6 1 -Wound Comment(s) Treatment Response Procedure Tolerated Well Pain Scale: 0-10 Numeric Is Patient Pain Free? Yes WC - Visit Discharge Discharge Condition Stable Ambulatory Status Wheelchair Transportation Private Auto Medication Reconcilliation completed & No provided to patient/care provider Clinical Summary of Care Provided Yes Notes: Facility Type Orders Sent Additional Wound Wound debrided: Left great toe hallux Laterality: Left Wound Grade/Stage: Stage II Type of Debridement: Selective debridement Anesthesia Used: 5% Lidocaine Gel Depth: Down to and including healthy tissue Percentage of wound debrided: 100 Instrument Used: - (Using gauze) Tissue Removed: Fibrin Severity: Limited To Skin Breakdown Amount of bleeding with debridement: Moderate Bleeding Controlled with: Compression and gauze Patient tolerated procedure: Patient tolerated procedure well Additional Wound Wound debrided: Left sacral blister Type of Debridement: Excisional debridement Anesthesia Used: 5% Lidocaine Gel Depth: Down to and including healthy tissue Percentage of wound debrided: 100 Instrument Used: 5mm curette Tissue Removed: Fibrin Severity: Limited To Skin Breakdown Amount of bleeding with debridement: Mild Bleeding Controlled with: Compression and gauze Patient tolerated procedure: Patient tolerated procedure well Assessment/Plan Assessment/Plan (1) Decubitus ulcer of sacral region, stage 2: CODE(S): L89.152 - Pressure ulcer of sacral region, stage 2 PLAN: Wound resolved and patient is to just sure prep pad and protect (2) Decubitus ulcer of toe, stage 2: CODE(S): L89.892 - Pressure ulcer of other site, stage 2 QUALIFIERS: Laterality: left Qualified Code(s): L89.892 - Pressure ulcer of other site, stage 2 PLAN: Wash area with Dial soap and pat dry with water and apply Xeroform and Adaptic with a foam dressing over top every day stasis pad on top full coverage to the wound bed Follow-up 1 week (3) Chronic anemia: CODE(S): D64.9 - Anemia, unspecified PLAN: Continue ferrous sulfate 325 mg to twice a day with stool softeners B12 injections 1000 mcg q. weekly Improved immensely she said at normal rate at this time (4) Decubitus ulcer of right buttock, stage 4: CODE(S): L89.314 - Pressure ulcer of right buttock, stage 4 PLAN: EpiFix #6 was applied to the right buttocks using veil and Steri-Strips hold in place with padded dressing over top. (5) Skin ulcer of left great toe: CODE(S): L97.529 - Non-pressure chronic ulcer of other part of left foot with unspecified severity QUALIFIERS: Non-pressure ulcer stage: limited to breakdown of skin Qualified Code(s): L97.521 - Non-pressure chronic ulcer of other part of left foot limited to breakdown of skin (6) Decubitus ulcer of left ischium, stage 2: CODE(S): L89.322 - Pressure ulcer of left buttock, stage 2 PLAN: Resolved and monitor may use Skin-Prep as needed (7) Ulcer of anus: CODE(S): K62.6 - Ulcer of anus and rectum PLAN: Resolved and monitor use Skin-Prep as needed (8) Non-pressure chronic ulcer of buttock: CODE(S): L98.419 - Non-pressure chronic ulcer of buttock with unspecified severity QUALIFIERS: Non-pressure ulcer stage: limited to breakdown of skin Qualified Code(s): L98.411 - Non-pressure chronic ulcer of buttock limited to breakdown of skin PLAN: Wash area with antibacterial soap and water and apply Fibracol with Adaptic over top and a foam SAP [place] dressing every day follow-up in 1 week
--- NOTE | 2024-09-28 15:08 | WC ---
PHOTO 09/28/24 LEFT GREAT TOE
--- NOTE | 2024-09-28 15:10 | WC ---
PHOTO 09/28/24 RIGHT BUTTOCK
--- NOTE | 2024-09-28 15:12 | WC ---
PHOTO 09/28/24 SACRAL
== END 2024-10-01 23:59 | disposition home or self-care (01) ==
LOC: WC 10:30
PROVIDERS: PCP Family Medicine; Referring Provider Family Medicine; Visit Provider Nurse Practitioner
DX: L89.152 Pressure ulcer of sacral region, stage 2 (principal); L89.314 Pressure ulcer of right buttock, stage 4; L89.892 Pressure ulcer of other site, stage 2; L89.322 Pressure ulcer of left buttock, stage 2; L97.521 Non-pressure chronic ulcer of other part of left foot limited to breakdown of skin; L98.411 Non-pressure chronic ulcer of buttock limited to breakdown of skin; D64.9 Anemia, unspecified; K62.6 Ulcer of anus and rectum
CPT/HCPCS: 11042; 15271; 97597; Q4186

== ENCOUNTER 2024-10-12 10:30 | Outpatient (RCR) | payer MEDICARE, OTHER, SELFPAY ==
[2024-10-02 00:38] VITALS: BP 113/65; PULSE 61; RESP 18; TEMP 36.3; BMI 16.9
[2024-10-05 11:05] VITALS: BP 98/55; PULSE 70; RESP 18; TEMP 35.7; BMI 16.9
--- NOTE | 2024-10-05 11:47 | PCM.WC.PN ---
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 Patient underwent treatment for colitis as an inpatient in March 2024 and developed a right ischial pressure ulcer. It was debrided twice at [facility]. She has been following for wound care with a nurse practitioner in the wound care center, who referred her to me for second opinion to see if she needs surgery. Patient lives at home in an apartment usually by herself. She does not have a pressure offloading bed. She is quite high functioning; however, she is currently in a nursing facility for wound care ever since the recent hospital admission. 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 She has an adult daughter in [place] and an adult daughter here in [place] who are both very involved and supportive. Progress of Wound: Right buttocks wound is very improved it is much smaller in measurements and it is hyper granulated again we will pared down with a #3 curette and then continue using probably her last EpiFix #7 to the area. The burn area on her sacral area is like a half crescent whitley shaped area that we are continue using Fibracol and it is healing well This week we used on her left great toe hallux Xeroform that worked very well for healing so we will continue with that she like that also. Subjective Subjective Patient is very pleased with outcomes Objective Data Objective Data All areas look good there is no sign of infection tolerant to treatments EpiFix's are working well we will continue with #7 to the buttocks area and Fibracol to the sacral and then Xeroform to the toe. Patient continues to do excellent at offloading and we will continues drinking Leeroy. Vital Signs: Vital Signs Temp Pulse Resp BP 96.3 F L 70 18 98/55 L 10/05/24 11:05 10/05/24 11:05 10/05/24 11:05 10/05/24 11:05 Weight: 89 lb 6.4 oz Body Mass Index (BMI) 16.9 Lab / Micro Data Attestation: I reviewed the patient's lab results. Physical Exam Const oriented x3 General Appearance: cooperative Orientation / Consciousness: oriented to person, oriented to place and oriented to time Exam Limitations: no limitations Nutritional Appearance: cachectic, underweight and thin HEENT normocephalic Head and Scalp: normal to inspection External Ear: external ears normal Eyes PERRL General Eye: normal appearance of both eyes Neck full ROM General: normal visual inspection Resp normal respiratory effort Effort and Inspection: able to speak in complete sentences Auscultation: clear to auscultation bilaterally Cardio regular rate and regular rhythm Palpation: normal PMI Rate: regular rate Rhythm: regular rhythm GI Rectal Exam: visual inspection abnormal, fistula and other Other Details: Open wound left buttocks and perirectal may be fistula going on. Back/Spine Back/Spine Narrative: Paralysis from waist down Cervical Spine: cervical ROM normal Pelvis: buttocks abnormal right and other soft tissue findings Wound on her coccyx area Skin no rashes or lesions noted Skin Narrative: Open wounds on left buttocks with positive depth and infection possible sepsis sacral area open area nonhealing and perirectal area possibly a fistula. Wounds: wounds noted Wound Narrative: Open wound on coccyx stage II Right buttocks wound stage IV Neuro oriented x3 Psych Appearance: grossly normal Attitude: calm Activity / Motor Behavior: appropriate eye contact Speech: normal speech Mood & Affect: euthymic mood Thought Process: normal thought process Thought Content: normal thought content Attention / Concentration: attention grossly intact Memory / Cognition: memory grossly intact Insight: insight good Judgement: judgement good Debridement Note Debridement Note Wound debrided: Right buttocks Laterality: Right Wound Grade/Stage: Stage IV Type of Debridement: Excisional debridement Anesthesia Used: 5% Lidocaine Gel Depth: in the subcutaneous layer Percentage of wound debrided: 100 Instrument Used: 5mm curette Tissue Removed: Fibrin Severity: Fat Layer Exposed Amount of bleeding with debridement: Mild Bleeding Controlled with: Compression and gauze Patient tolerated procedure: Patient tolerated procedure well Post-Debridement Measurements and Additional Note: Post-Debridement Measurements/Treatment MARY - Nurse 1 - General Ulcer Assessment Start: 10/05/24 11:05 Freq: Status: Active Protocol: WC.LOWEXT Activity Type Activity Date Activity User E-sign Co-sign Detail Recorded Client Recorded Date Recorded By Document 10/05/24 11:05 LAURENCE [id number] 10/05/24 11:09 10/05/24 11:05 - Today's Visit Information Type of service Follow-up Visit (Physician/BROKER IN CHARGE ) Arrival Mode Wheelchair Transfer Assistance Manual Patient Identification Verified (Name & Yes ) Patient Requires Transmission-Based No Precautions Height and Weight Body Mass Index (BMI) 16.9 BMI Classification Underweight Vital Signs Temperature (97.8 F-99.1 F) 96.3 F L Temperature Source Temporal Pulse Rate (60-100) 70 Pulse Location Monitor Respiratory Rate (12-18) 18 Respiratory rate source Observation Blood Pressure (90/60-120/80) 98/55 L Blood Pressure Mean (mm Hg) 69 Source Monitor Position Sitting Blood Pressure Location Left Arm History Since Last Visit- (Skip if this is Patient's initial visit) Have you changed medications since your No last visit? Any new allergies or adverse reactions No Had a fall/change in ADL's that may No increase risk of falls Signs or symptoms of abuse and/or No neglect since last visit Have you been in the hospital since your No last visit? Has dressing in place as prescribed Yes Has compression in place as prescribed N/A Has offloadiing in place as prescribed N/A Experienced any changes in pain level or No management Left Footwear Regular Shoe Right Footwear Regular Shoe Pain Scale: 0-10 Numeric Is Patient Pain Free? Yes - Nurse 1 - General Ulcer Measurement Start: 10/05/24 11:05 Freq: Status: Active Protocol: Activity Type Activity Date Activity User E-sign Co-sign Detail Recorded Client Recorded Date Recorded By Document 10/05/24 11:05 RB [id number] 10/05/24 11:09 RB 10/05/24 11:05 Wound Center Nurse 1 19. sacral -Combined with other wound No -Current Size (cm) - Length 1 -Current Size (cm) - Width 0.6 -Current Size (cm) - Depth 0.1 -Total Square Cm 0.6 -Tunneling No -Undermining/Tunneling No -Circular Undermining No -Exudate Amt Medium -Exudate Type Serosanguineous -Wound Margin Distinct, Outline Attached -Granulation Amt Large (67-100%) -Granulation Quality [place] -Slough/Fibrin Yes -Necrosis Amt Small (1-33%) -Necrotic Tissue Type Adherent Slough -Structure Exposed N/A -Texture (Leyla-wound Skin Appearance) Assessed -Moisture (Leyla-wound Skin Appearance) Assessed -Color (Leyla-wound Skin Appearance) Assessed, Erythema -Temperature (Leyla-wound Skin No Abnormality Appearance) (Pt Warm) -Tenderness on Palpation (Leyla-wound No Skin Appearance) -Ulcer Cleansing Wound Cleanser -Foul Odor after Cleansing No -Anesthetic Used 5% Lidocaine Gel #18 L Grt Toe -Combined with other wound No -Current Size (cm) - Length 0.1 -Current Size (cm) - Width 0.1 -Current Size (cm) - Depth 0.1 -Total Square Cm 0.01 -Tunneling No -Undermining/Tunneling No -Circular Undermining No -Exudate Amt Medium -Exudate Type Serosanguineous -Wound Margin Distinct, Outline Attached -Granulation Amt Medium (34-66%) -Granulation Quality [place] -Slough/Fibrin Yes -Necrosis Amt Small (1-33%) -Necrotic Tissue Type Adherent Slough -Structure Exposed N/A -Texture (Leyla-wound Skin Appearance) Assessed -Moisture (Leyla-wound Skin Appearance) Assessed -Color (Leyla-wound Skin Appearance) Assessed -Temperature (Leyla-wound Skin No Abnormality Appearance) (Pt Warm) -Tenderness on Palpation (Leyla-wound No Skin Appearance) -Ulcer Cleansing Rinsed/ Irrigated with Saline -Foul Odor after Cleansing No -Anesthetic Used 5% Lidocaine Gel #14 Right Buttock -Combined with other wound No -Current Size (cm) - Length 1.5 -Current Size (cm) - Width 0.5 -Current Size (cm) - Depth 0.1 -Total Square Cm 0.75 -Tunneling No -Undermining/Tunneling No -Circular Undermining No -Exudate Amt Medium -Exudate Type Serosanguineous -Wound Margin Distinct, Outline Attached -Granulation Amt Large (67-100%) -Granulation Quality [place] -Slough/Fibrin Yes -Necrosis Amt Medium (34-66%) -Necrotic Tissue Type Adherent Slough -Structure Exposed N/A -Texture (Leyla-wound Skin Appearance) Assessed, Scarring -Moisture (Leyla-wound Skin Appearance) Assessed, Maceration -Color (Leyla-wound Skin Appearance) Assessed -Temperature (Leyla-wound Skin No Abnormality Appearance) (Pt Warm) -Tenderness on Palpation (Leyla-wound No Skin Appearance) -Ulcer Cleansing Wound Cleanser -Foul Odor after Cleansing Yes -Anesthetic Used 5% Lidocaine Gel WC - Nurse 2 - General Ulcer CM Notes Start: 10/05/24 11:05 Freq: Status: Active Protocol: Activity Type Activity Date Activity User E-sign Co-sign Detail Recorded Client Recorded Date Recorded By Document 10/05/24 11:23 DS [id number] 10/05/24 11:31 DS 10/05/24 11:23 Wound Center Nurse 2 19. sacral -Time 11:23 -Correct Patient Yes -Correct Side, Site, Position Yes -Correct Procedure Yes -Procedure Performed Yes -Type of Procedure Debridement -Clinical Debridement Subcutaneous -Tissue Removed Subcutaneous -Post Debridement (cm) - Length 1.0 -Post Debridement (cm) - Width 0.2 -Post Debridement (cm) - Depth 0.1 -Total Square (Post) (cm) 0.20 -Area of Debridement (cm) - Length 1.0 -Area of Debridement (cm) - Width 0.2 -Total Square (Area) (cm) 0.20 -Tunneling No -Undermining/Tunneling No -Circular Undermining No -Wound/Ulcer Outcome Not Healed -Ulcer Cleansing Rinsed/ Irrigated with Saline -Foul Odor after Cleansing No -Bioengineered Tissue No -Bleeding Controlled with Pressure -Treatment Response Procedure Tolerated Well -Debridement - Subq, 1st 20sq cm Yes #18 L Grt Toe -Time 11:25 -Correct Patient Yes -Correct Side, Site, Position Yes -Correct Procedure Yes -Procedure Performed Yes -Type of Procedure Debridement -Clinical Debridement Subcutaneous -Tissue Removed Subcutaneous -Post Debridement (cm) - Length 0.2 -Post Debridement (cm) - Width 0.2 -Post Debridement (cm) - Depth 0.1 -Total Square (Post) (cm) 0.04 -Area of Debridement (cm) - Length 0.2 -Area of Debridement (cm) - Width 0.2 -Total Square (Area) (cm) 0.04 -Tunneling No -Undermining/Tunneling No -Circular Undermining No -Wound/Ulcer Outcome Not Healed -Ulcer Cleansing Rinsed/ Irrigated with Saline -Foul Odor after Cleansing No -Bioengineered Tissue No -Bleeding Controlled with Pressure -Debridement - Subq, 1st 20sq cm No #14 Right Buttock -Time 11:26 -Correct Patient Yes -Correct Side, Site, Position Yes -Correct Procedure Yes -Procedure Performed Yes -Type of Procedure Debridement -Clinical Debridement Subcutaneous -Tissue Removed Subcutaneous -Post Debridement (cm) - Length 0.9 -Post Debridement (cm) - Width 0.5 -Post Debridement (cm) - Depth 0.1 -Total Square (Post) (cm) 0.45 -Area of Debridement (cm) - Length 0.9 -Area of Debridement (cm) - Width 0.5 -Total Square (Area) (cm) 0.45 -Tunneling No -Undermining/Tunneling No -Circular Undermining No -Wound/Ulcer Outcome Not Healed -Ulcer Cleansing Rinsed/ Irrigated with Saline -Foul Odor after Cleansing No -Bioengineered Tissue Yes -Type of Bioengineered Tissue Epifix 18mm Disc -Expiration Date 05/04/29 -Product Lot Number [id number] -Percent Used 100 -Lot number of Saline Used [id number] -Bleeding Controlled with Pressure -Treatment Response Procedure Tolerated Well -Debridement - Subq, 1st 20sq cm No -Apply Skin Sub - 1st 25 sq cm - Legs 1 -Epifix 18mm Disc Application 1-4 3 Pain Scale: 0-10 Numeric Is Patient Pain Free? Yes Additional Wound Wound debrided: Left great toe hallux Laterality: Left Wound Grade/Stage: Stage II Type of Debridement: Excisional debridement Anesthesia Used: 5% Lidocaine Gel Depth: Down to and including healthy tissue Percentage of wound debrided: 100 Instrument Used: - (Using gauze) Tissue Removed: Fibrin Severity: Limited To Skin Breakdown Amount of bleeding with debridement: Moderate Bleeding Controlled with: Compression and gauze Patient tolerated procedure: Patient tolerated procedure well Additional Wound Wound debrided: Left sacral blister Type of Debridement: Excisional debridement Anesthesia Used: 5% Lidocaine Gel Depth: Down to and including healthy tissue Percentage of wound debrided: 100 Instrument Used: 5mm curette Tissue Removed: Fibrin Severity: Limited To Skin Breakdown Amount of bleeding with debridement: Mild Bleeding Controlled with: Compression and gauze Patient tolerated procedure: Patient tolerated procedure well Assessment/Plan Assessment/Plan (1) Decubitus ulcer of sacral region, stage 2: CODE(S): L89.152 - Pressure ulcer of sacral region, stage 2 PLAN: Wound resolved and patient is to just sure prep pad and protect (2) Decubitus ulcer of toe, stage 2: CODE(S): L89.892 - Pressure ulcer of other site, stage 2 QUALIFIERS: Laterality: left Qualified Code(s): L89.892 - Pressure ulcer of other site, stage 2 PLAN: Wash area with Dial soap and pat dry with water and apply Xeroform and Adaptic with a foam dressing over top every day stasis pad on top full coverage to the wound bed Follow-up 1 week (3) Chronic anemia: CODE(S): D64.9 - Anemia, unspecified PLAN: Continue ferrous sulfate 325 mg to twice a day with stool softeners B12 injections 1000 mcg q. weekly Improved immensely she said at normal rate at this time (4) Decubitus ulcer of right buttock, stage 4: CODE(S): L89.314 - Pressure ulcer of right buttock, stage 4 PLAN: EpiFix #7 was applied to the right buttocks using Adaptic touch and Steri-Strips hold in place with padded dressing over top. (5) Skin ulcer of left great toe: CODE(S): L97.529 - Non-pressure chronic ulcer of other part of left foot with unspecified severity QUALIFIERS: Non-pressure ulcer stage: limited to breakdown of skin Qualified Code(s): L97.521 - Non-pressure chronic ulcer of other part of left foot limited to breakdown of skin (6) Decubitus ulcer of left ischium, stage 2: CODE(S): L89.322 - Pressure ulcer of left buttock, stage 2 PLAN: Resolved and monitor may use Skin-Prep as needed (7) Ulcer of anus: CODE(S): K62.6 - Ulcer of anus and rectum PLAN: Resolved and monitor use Skin-Prep as needed (8) Non-pressure chronic ulcer of buttock: CODE(S): L98.419 - Non-pressure chronic ulcer of buttock with unspecified severity QUALIFIERS: Non-pressure ulcer stage: limited to breakdown of skin Qualified Code(s): L98.411 - Non-pressure chronic ulcer of buttock limited to breakdown of skin PLAN: Wash area with antibacterial soap and water and apply Fibracol with Adaptic over top and a foam SAP [place] dressing every day follow-up in 1 week
[2024-10-12 10:53] VITALS: BP 133/86; PULSE 74; RESP 18; TEMP 36.4; BMI 16.9
--- NOTE | 2024-10-12 11:31 | PCM.WC.PN ---
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 Patient underwent treatment for colitis as an inpatient in March 2024 and developed a right ischial pressure ulcer. It was debrided twice at [facility]. She has been following for wound care with a nurse practitioner in the wound care center, who referred her to me for second opinion to see if she needs surgery. Patient lives at home in an apartment usually by herself. She does not have a pressure offloading bed. She is quite high functioning; however, she is currently in a nursing facility for wound care ever since the recent hospital admission. 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 She has an adult daughter in [place] and an adult daughter here in [place] who are both very involved and supportive. Progress of Wound: The right buttocks is healed the sacral area where she had burned her self is healed and the left toe hallux is healed. I suggested we pad them for another week with little foam pads and she needs to wear her aperture pad over her left great toe all the time when she sleeps on her stomach to keep it from reopening. Patient can be discharged and will follow-up as needed Subjective Subjective Patient is very happy about being discharged Objective Data Objective Data No sign of infection all healed well skin looks supple tolerated everything well is anxious to be discharged. Vital Signs: Vital Signs Temp Pulse Resp BP 97.6 F L 74 18 133/86 H 10/12/24 10:53 10/12/24 10:53 10/12/24 10:53 10/12/24 10:53 Weight: 89 lb 6.4 oz Body Mass Index (BMI) 16.9 Physical Exam Const oriented x3 General Appearance: cooperative Orientation / Consciousness: oriented to person, oriented to place and oriented to time Exam Limitations: no limitations Nutritional Appearance: cachectic, underweight and thin HEENT normocephalic Head and Scalp: normal to inspection External Ear: external ears normal Eyes PERRL General Eye: normal appearance of both eyes Neck full ROM General: normal visual inspection Resp normal respiratory effort Effort and Inspection: able to speak in complete sentences Auscultation: clear to auscultation bilaterally Cardio regular rate and regular rhythm Palpation: normal PMI Rate: regular rate Rhythm: regular rhythm GI Rectal Exam: visual inspection abnormal, fistula and other Other Details: Open wound left buttocks and perirectal may be fistula going on. Back/Spine Back/Spine Narrative: Paralysis from waist down Cervical Spine: cervical ROM normal Pelvis: buttocks abnormal right and other soft tissue findings Wound on her coccyx area Skin no rashes or lesions noted Skin Narrative: Open wounds on left buttocks with positive depth and infection possible sepsis sacral area open area nonhealing and perirectal area possibly a fistula. Wounds: wounds noted Wound Narrative: Open wound on coccyx stage II Right buttocks wound stage IV Neuro oriented x3 Psych Appearance: grossly normal Attitude: calm Activity / Motor Behavior: appropriate eye contact Speech: normal speech Mood & Affect: euthymic mood Thought Process: normal thought process Thought Content: normal thought content Attention / Concentration: attention grossly intact Memory / Cognition: memory grossly intact Insight: insight good Judgement: judgement good Debridement Note Debridement Note No debridement was completed: No debridement was completed today Post-Debridement Measurements and Additional Note: Post-Debridement Measurements/Treatment - Nurse 1 - General Ulcer Assessment Start: 10/05/24 11:05 Freq: Status: Active Protocol: JOSEPHINE Activity Type Activity Date Activity User E-sign Co-sign Detail Recorded Client Recorded Date Recorded By Document 10/05/24 11:05 RB [id number] 10/05/24 11:09 RB Document 10/12/24 10:53 RB [id number] 10/12/24 10:57 RB 10/05/24 10/12/24 11:05 10:53 - Today's Visit Information Type of service Follow-up Visit Follow-up Visit (Physician/JOURNEYMAN PAINTER (Physician/JOURNEYMAN PAINTER ) ) Arrival Mode Wheelchair Wheelchair Transfer Assistance Manual None Patient Identification Verified (Name & Yes Yes ) Patient Requires Transmission-Based No No Precautions Height and Weight Body Mass Index (BMI) 16.9 16.9 BMI Classification Underweight Underweight Vital Signs Temperature (97.8 F-99.1 F) 96.3 F L 97.6 F L Temperature Source Temporal Temporal Pulse Rate (60-100) 70 74 Pulse Location Monitor Monitor Respiratory Rate (12-18) 18 18 Respiratory rate source Observation Observation Blood Pressure (90/60-120/80) 98/55 L 133/86 H Blood Pressure Mean (mm Hg) 69 101 Source Monitor Monitor Position Sitting Semi-Fowlers Blood Pressure Location Left Arm Left Arm History Since Last Visit- (Skip if this is Patient's initial visit) Have you changed medications since your No No last visit? Any new allergies or adverse reactions No No Had a fall/change in ADL's that may No No increase risk of falls Signs or symptoms of abuse and/or No No neglect since last visit Have you been in the hospital since your No No last visit? Has dressing in place as prescribed Yes Yes Has compression in place as prescribed N/A N/A Has offloadiing in place as prescribed N/A Yes Experienced any changes in pain level or No No management Left Footwear Regular Shoe Right Footwear Regular Shoe Pain Scale: 0-10 Numeric Is Patient Pain Free? Yes Yes WC - Nurse 1 - General Ulcer Measurement Start: 10/05/24 11:05 Freq: Status: Active Protocol: Activity Type Activity Date Activity User E-sign Co-sign Detail Recorded Client Recorded Date Recorded By Document 10/05/24 11:05 RB [id number] 10/05/24 11:09 RB Document 10/12/24 10:53 RB [id number] 10/12/24 10:57 RB 10/05/24 10/12/24 11:05 10:53 Wound Center Nurse 1 19. sacral -Combined with other wound No No -Current Size (cm) - Length 1 0.5 -Current Size (cm) - Width 0.6 0.5 -Current Size (cm) - Depth 0.1 0.1 -Total Square Cm 0.6 0.25 -Photo Taken Yes -Tunneling No No -Undermining/Tunneling No No -Circular Undermining No No -Exudate Amt Medium Medium -Exudate Type Serosanguineous Serosanguineous -Wound Margin Distinct, Distinct, Outline Outline Attached Attached -Granulation Amt Large (67-100%) Medium (34-66%) -Granulation Quality [place] -Slough/Fibrin Yes Yes -Necrosis Amt Small (1-33%) Large (67-100%) -Necrotic Tissue Type Adherent Slough Adherent Slough -Structure Exposed N/A N/A -Texture (Leyla-wound Skin Appearance) Assessed Assessed -Moisture (Leyla-wound Skin Appearance) Assessed Assessed -Color (Leyla-wound Skin Appearance) Assessed, Erythema Erythema -Temperature (Leyla-wound Skin No Abnormality No Abnormality Appearance) (Pt Warm) (Pt Warm) -Tenderness on Palpation (Leyla-wound No No Skin Appearance) -Ulcer Cleansing Wound Cleanser Wound Cleanser -Foul Odor after Cleansing No No -Anesthetic Used 5% Lidocaine Gel #18 L Grt Toe -Combined with other wound No No -Current Size (cm) - Length 0.1 0.7 -Current Size (cm) - Width 0.1 0.7 -Current Size (cm) - Depth 0.1 0.1 -Total Square Cm 0.01 0.49 -Photo Taken Yes -Tunneling No No -Undermining/Tunneling No No -Circular Undermining No No -Exudate Amt Medium Medium -Exudate Type Serosanguineous Serosanguineous -Wound Margin Distinct, Distinct, Outline Outline Attached Attached -Granulation Amt Medium (34-66%) Medium (34-66%) -Granulation Quality [place] -Slough/Fibrin Yes Yes -Necrosis Amt Small (1-33%) Medium (34-66%) -Necrotic Tissue Type Adherent Slough Adherent Slough -Structure Exposed N/A N/A -Texture (Leyla-wound Skin Appearance) Assessed Assessed -Moisture (Leyla-wound Skin Appearance) Assessed Assessed -Color (Leyla-wound Skin Appearance) Assessed Erythema -Temperature (Leyla-wound Skin No Abnormality No Abnormality Appearance) (Pt Warm) (Pt Warm) -Tenderness on Palpation (Leyla-wound No No Skin Appearance) -Ulcer Cleansing Rinsed/ Wound Cleanser Irrigated with Saline -Foul Odor after Cleansing No No -Anesthetic Used 5% Lidocaine Gel #14 Right Buttock -Combined with other wound No No -Current Size (cm) - Length 1.5 0.1 -Current Size (cm) - Width 0.5 0.1 -Current Size (cm) - Depth 0.1 0.1 -Total Square Cm 0.75 0.01 -Photo Taken Yes -Tunneling No No -Undermining/Tunneling No No -Circular Undermining No No -Exudate Amt Medium Medium -Exudate Type Serosanguineous Serosanguineous -Wound Margin Distinct, Distinct, Outline Outline Attached Attached -Granulation Amt Large (67-100%) Medium (34-66%) -Granulation Quality [place] Hyper- granulation, [place],Red -Slough/Fibrin Yes Yes -Necrosis Amt Medium (34-66%) Small (1-33%) -Necrotic Tissue Type Adherent Slough Adherent Slough -Structure Exposed N/A N/A -Texture (Leyla-wound Skin Appearance) Assessed, Assessed, Scarring Scarring -Moisture (Leyla-wound Skin Appearance) Assessed, Assessed Maceration -Color (Leyla-wound Skin Appearance) Assessed Assessed -Temperature (Leyla-wound Skin No Abnormality No Abnormality Appearance) (Pt Warm) (Pt Warm) -Tenderness on Palpation (Leyla-wound No No Skin Appearance) -Ulcer Cleansing Wound Cleanser Wound Cleanser -Foul Odor after Cleansing Yes No -Anesthetic Used 5% Lidocaine Gel WC - Nurse 2 - General Ulcer CM Notes Start: 10/05/24 11:05 Freq: Status: Active Protocol: Activity Type Activity Date Activity User E-sign Co-sign Detail Recorded Client Recorded Date Recorded By Document 10/05/24 11:23 DS [id number] 10/05/24 11:31 DS Document 10/12/24 11:03 [facility] [id number] 10/12/24 11:08 [facility] 10/05/24 10/12/24 11:23 11:03 Wound Center Nurse 2 19. sacral -Time 11:23 -Correct Patient Yes -Correct Side, Site, Position Yes -Correct Procedure Yes -Procedure Performed Yes No -Type of Procedure Debridement -Clinical Debridement Subcutaneous -Tissue Removed Subcutaneous -Post Debridement (cm) - Length 1.0 0 -Post Debridement (cm) - Width 0.2 0 -Post Debridement (cm) - Depth 0.1 0 -Total Square (Post) (cm) 0.20 0 -Area of Debridement (cm) - Length 1.0 0 -Area of Debridement (cm) - Width 0.2 0 -Total Square (Area) (cm) 0.20 0 -Tunneling No -Undermining/Tunneling No -Circular Undermining No -Wound/Ulcer Outcome Not Healed Healed- Epithelialized -Ulcer Cleansing Rinsed/ Irrigated with Saline -Foul Odor after Cleansing No -Bioengineered Tissue No -Bleeding Controlled with Pressure NA -Treatment Response Procedure Tolerated Well -Debridement - Subq, 1st 20sq cm Yes #18 L Grt Toe -Time 11:25 -Correct Patient Yes -Correct Side, Site, Position Yes -Correct Procedure Yes -Procedure Performed Yes No -Type of Procedure Debridement -Clinical Debridement Subcutaneous -Tissue Removed Subcutaneous -Post Debridement (cm) - Length 0.2 0 -Post Debridement (cm) - Width 0.2 0 -Post Debridement (cm) - Depth 0.1 0 -Total Square (Post) (cm) 0.04 0 -Area of Debridement (cm) - Length 0.2 0 -Area of Debridement (cm) - Width 0.2 0 -Total Square (Area) (cm) 0.04 0 -Tunneling No -Undermining/Tunneling No -Circular Undermining No -Wound/Ulcer Outcome Not Healed Healed- Epithelialized -Ulcer Cleansing Rinsed/ Irrigated with Saline -Foul Odor after Cleansing No -Bioengineered Tissue No -Bleeding Controlled with Pressure NA -Debridement - Subq, 20sq cm No #14 Right Buttock -Time 11:26 -Correct Patient Yes -Correct Side, Site, Position Yes -Correct Procedure Yes -Procedure Performed Yes -Type of Procedure Debridement -Clinical Debridement Subcutaneous -Tissue Removed Subcutaneous -Post Debridement (cm) - Length 0.9 0 -Post Debridement (cm) - Width 0.5 0 -Post Debridement (cm) - Depth 0.1 0 -Total Square (Post) (cm) 0.45 0 -Area of Debridement (cm) - Length 0.9 0 -Area of Debridement (cm) - Width 0.5 0 -Total Square (Area) (cm) 0.45 0 -Tunneling No -Undermining/Tunneling No -Circular Undermining No -Wound/Ulcer Outcome Not Healed Healed- Epithelialized -Ulcer Cleansing Rinsed/ Irrigated with Saline -Foul Odor after Cleansing No -Bioengineered Tissue Yes -Type of Bioengineered Tissue Epifix 18mm Disc -Expiration Date 05/04/29 -Product Lot Number [id number] -Percent Used 100 -Lot number of Saline Used [id number] -Bleeding Controlled with Pressure NA -Treatment Response Procedure Tolerated Well -Debridement - Subq, 1st 20sq cm No -Apply Skin Sub - 1st 25 sq cm - Legs 1 -Epifix 18mm Disc Application 1-4 3 Pain Scale: 0-10 Numeric Is Patient Pain Free? Yes Yes - Nurse 3 - General Ulcer D/C NN Start: 10/05/24 11:05 Freq: Status: Active Protocol: Activity Type Activity Date Activity User E-sign Co-sign Detail Recorded Client Recorded Date Recorded By Document 10/05/24 11:57 RB [id number] 10/05/24 11:59 RB Document 10/12/24 11:23 DL [id number] 10/12/24 11:25 DL 10/05/24 10/12/24 11:57 11:23 Wound Care Center Nurse 3 19. sacral -Ulcer Cleansing Rinsed/ Irrigated with Saline -Foul Odor after Cleansing No -Primary Dressing Applied Silicone Border Silicone Border Foam 4x4 Foam 4x4 -Primary Dressing Covered/Secured with Dry Gauze -Silicone Border Foam 4x4 1 1 #18 L Grt Toe -Ulcer Cleansing Rinsed/ Irrigated with Saline -Primary Dressing Applied Silicone Border Silicone Border Foam 4x4 Foam 4x4 -Other Dressing xeroform/ APPETURE PAD mepliex then apperture pad -Silicone Border Foam 4x4 1 1 #14 Right Buttock -Ulcer Cleansing Rinsed/ Irrigated with Saline -Primary Dressing Applied Silicone Border Silicone Border Foam 6x6 Foam 4x4 -Primary Dressing Covered/Secured with Dry Gauze -Silicone Border Foam 4x4 1 -Silicone Border Foam 6x6 1 -Wound Comment(s) Pt healed/ discharged. Treatment Response Procedure Procedure Tolerated Well Tolerated Well Pain Scale: 0-10 Numeric Is Patient Pain Free? Yes Yes - Visit Discharge Discharge Condition Stable Stable Ambulatory Status Wheelchair Wheelchair Transportation Private Auto ECF TRANS Medication Reconcilliation completed & No provided to patient/care provider Clinical Summary of Care Provided Yes Facility Type Quality Engineering Manager Care Facility Orders Sent Yes Assessment/Plan Assessment/Plan (1) Decubitus ulcer of sacral region, stage 2: CODE(S): L89.152 - Pressure ulcer of sacral region, stage 2 PLAN: Discharge from the wound center follow-up as needed\ May pad the areas with foam pads for the next week and then she can take them off but her left toe she will always have to have a pad and aperture over top to keep it from reopening. (2) Decubitus ulcer of toe, stage 2: CODE(S): L89.892 - Pressure ulcer of other site, stage 2 QUALIFIERS: Laterality: left Qualified Code(s): L89.892 - Pressure ulcer of other site, stage 2 (3) Chronic anemia: CODE(S): D64.9 - Anemia, unspecified (4) Decubitus ulcer of right buttock, stage 4: CODE(S): L89.314 - Pressure ulcer of right buttock, stage 4 (5) Skin ulcer of left great toe: CODE(S): L97.529 - Non-pressure chronic ulcer of other part of left foot with unspecified severity QUALIFIERS: Non-pressure ulcer stage: limited to breakdown of skin Qualified Code(s): L97.521 - Non-pressure chronic ulcer of other part of left foot limited to breakdown of skin (6) Decubitus ulcer of left ischium, stage 2: CODE(S): L89.322 - Pressure ulcer of left buttock, stage 2 PLAN: Resolved and monitor may use Skin-Prep as needed (7) Ulcer of anus: CODE(S): K62.6 - Ulcer of anus and rectum PLAN: Resolved and monitor use Skin-Prep as needed (8) Non-pressure chronic ulcer of buttock: CODE(S): L98.419 - Non-pressure chronic ulcer of buttock with unspecified severity QUALIFIERS: Non-pressure ulcer stage: limited to breakdown of skin Qualified Code(s): L98.411 - Non-pressure chronic ulcer of buttock limited to breakdown of skin
--- NOTE | 2024-10-12 14:23 | WC ---
PHOTO RIGHT BUTTOCK 10/12/24
== END 2024-10-31 23:59 | disposition home or self-care (01) ==
LOC: WC 10:30
PROVIDERS: PCP Family Medicine; Referring Provider Family Medicine; Visit Provider Nurse Practitioner
DX: L89.152 Pressure ulcer of sacral region, stage 2 (principal); L89.314 Pressure ulcer of right buttock, stage 4; L89.892 Pressure ulcer of other site, stage 2; L89.322 Pressure ulcer of left buttock, stage 2; L97.521 Non-pressure chronic ulcer of other part of left foot limited to breakdown of skin; L98.411 Non-pressure chronic ulcer of buttock limited to breakdown of skin; G89.29 Other chronic pain; D64.9 Anemia, unspecified; K62.6 Ulcer of anus and rectum
CPT/HCPCS: 11042; 15271; 99213; Q4186; G0463

== ENCOUNTER → 2024-12-27 | Outpatient (CLI) | payer MEDICARE, OTHER, SELFPAY ==
[2024-12-27 15:14] LABS: Hematocrit 38.0 % (37-47); Hemoglobin 12.7 g/dL (12.0-15.0); Immature Granulocytes Count 0.030 X10^3/uL (0.0-0.0); Mean Corp Hgb Conc 33.4 g/dL (32-36); Mean Corpuscular Volume 98.2 fL (81-99); Mean Platelet Vol. 10.7 fl (6.2-12.0); NRBC Flagged by Analyzer 0 % (0-5); POSITIVE DIFFERENTIAL YES; Platelet Count 184 K/mm3 (150-450); RBC Distribution Width CV 13.1 % (11.6-14.6); RBC Distribution Width SD 46.8 fl (35.1-43.9); Red Blood Count 3.87 M/mm3 (4.2-5.4); White Blood Count 8.4 K/mm3 (4.4-11.0)
[2024-12-27 15:48] LABS: AST(SGOT) 21 U/L (<=31); Alanine Aminotransfer ALT/SGPT 12 U/L (<=34); Albumin, Serum 4.2 g/dL (3.4-4.8); Alkaline Phosphatase 48 U/L (35-104); Anion Gap 12 (5-15); BUN 9 mg/dL (4-19); BUN/Creat Ratio 21.1 RATIO (10-20); Calcium,Total 9.2 mg/dL (7.6-11.0); Carbon Dioxide 26.0 mmol/L (21.0-32.0); Chloride 101 mmol/L (98-108); Cholesterol 170 mg/dL (<=200); Ferritin 30 ng/mL (22-378); Globulin 2.6 g/dL (2.2-4.2); Glucose 85 mg/dL (70-99); Low Density Lipoprotein Calc. 77 mg/dL; Potassium 3.7 mmol/L (3.3-5.1); Triglycerides 51 mg/dL; Very Low Density Lipoprotein 10 mg/dL (5-40); cholesterol:hdl ratio screen 2.05
[2024-12-27 16:11] LABS: Iron 68 ug/dL (50-170); Iron Binding Capacity,Total 245 ug/dL (250-450); Iron Binding Capacity,Unsat 177 ug/dL (228-428)
== END | disposition home or self-care (01) ==
PROVIDERS: PCP Family Medicine; Referring Provider Family Medicine; Visit Provider Family Medicine
DX: I10 Essential (primary) hypertension (principal); Z13.220 Encounter for screening for lipoid disorders; D50.9 Iron deficiency anemia, unspecified; M79.10 Myalgia, unspecified site; Z13.1 Encounter for screening for diabetes mellitus
CPT/HCPCS: 36415; 80053; 80061; 82728; 83036; 83540; 83550; 84443; 85025

== ENCOUNTER 2025-01-16 10:30 | Day surgery (SDC) | payer MEDICARE, OTHER, SELFPAY ==
[2025-01-16 11:04] VITALS: BP 124/72; PULSE 64; RESP 16; TEMP 36.2; O2SAT 100; BMI 17.9
--- NOTE | 2025-01-16 11:24 | RAD_ITS ---
PROCEDURE: FLUORO GUIDED NEEDLE PLACEMENT 01/16/2025 REASON FOR EXAM: HIP INJECTION, RIGHT TECHNIQUE: Procedure Code: RADFGN Modality: DX Procedure: FLUORO GUIDED NEEDLE PLACEMENT 5.8 seconds of fluoroscopy. 0.71 mGy radiation dose. 2 images were submitted. COMPARISON: None FINDINGS: Intraoperative fluoroscopic services provided for right hip injection. There is evidence of a displaced intertrochanteric fracture. RAD/Fluoro Guided Needle Placement IMPRESSION: Right hip injection for right hip pain. [facility]
[2025-01-16 11:26] VITALS: BP 102/89; BP 103/77; O2SAT 60; O2SAT 98
[2025-01-16] MEDS: Lidocaine 1% (5 ml sdv) 5 ML Vial (11:31)
--- NOTE | 2025-01-16 11:54 | PCM.OPRPT ---
Operative Report (Standard) Operative Information Date of Procedure: 01/16/25 Pre-Operative Diagnosis: Osteoarthritis of the right hip Post-Operative Diagnosis: Osteoarthritis of the right hip, chronic fracture of the right hip Surgery/Procedure Performed: Right hip intra-articular steroid injection under fluoroscopic guidance poker room manager: No Type of Anesthesia: Local RN Documented Start/Stop Times: Operation Date: 01/16/25 12:00 Case Time Into Pre-Op 01/16/25 10:43 Anesthesia Start 01/16/25 11:23 Into Room 01/16/25 11:23 Procedure Start 01/16/25 11:30 Procedure End 01/16/25 11:33 Anesthesia End 01/16/25 11:34 Out of Room 01/16/25 11:34 Procedure Start Time: 11:55 Procedure Stop Time: 11:55 Select all DRAINS/GRAFTS/IMPLANTS that apply: None Estimated Blood Loss: 1 Specimen collected: No Description of surgery: BLOOD LOSS: Minimal. COMPLICATIONS: None. DESCRIPTION OF PROCEDURE: History and physical of today was reviewed. Risks and benefits of the procedure were explained. The patient understood and agreed to proceed. Informed consent was obtained. IV inserted per routine protocol. The patient was taken to the operating room and placed in the supine position. The right hip area was prepped and draped in a sterile fashion using iodine x3. Under fluoroscopy guidance on AP view, the right hip joint was visualized. The skin and subcutaneous tissue was anesthetized with approximately 3 mL of 1% lidocaine using a 25-gauge regular needle approximately 3 cm cephalad to the right greater trochanter. Under direct visualization with fluoroscopy on an AP view, using a 22-gauge 3-1/2-inch spinal needle, the needle was advanced via the skin using the lateral approach. The tip of the needle was maneuvered and directed towards the superiormost aspect of the hip joint. Once the tip of the needle was at the vicinity of the joint, after negative aspiration for blood and positive aspiration of synovial fluid, a total of 1 mL of contrast was injected to confirm correct placement of the needle as well as halo spread around the hip joint. After repeated negative aspiration for blood and confirmation on AP as well as oblique view, a total of 10 mL of preservative-free 0.25% Marcaine with 80 mg of Depo-Medrol was injected easily. The needle was then removed intact. The patient experienced no sign or symptoms of intrathecal or intravascular injection. The patient experienced no paresthesia. The procedure was completed without any apparent difficulty or any complications. The patient appeared to tolerate it well. ASSESSMENT AND PLAN: This is a 74-year-old female with osteoarthritis of the right hip, chronic fracture of the right hip, status post right hip intra-articular steroid injection under fluoroscopic guidance, patient will continue her current medications, patient will follow-up in approximately 2 weeks for reevaluation. Surgical Findings: 0 Complications Complications: No Admit VTE Documentation VTE Present on Admission: No VTE Mechan Device Prophylaxis: None VTE Pharm Prophylaxis ordered?: No
== END 2025-01-16 12:13 | disposition home or self-care (01) ==
LOC: SDC 10:33 → AC 10:38
PROVIDERS: PCP Family Medicine; Referring Provider Anesthesiology Pain Medicine; Visit Provider Anesthesiology Pain Medicine
PROC: 3E0U3GC Introduction of Other Therapeutic Substance into Joints, Percutaneous Approach (ICD-10-PCS; CPT 20610; principal; 2025-01-16 11:55)
DX: M16.11 Unilateral primary osteoarthritis, right hip (principal); M84.451A Pathological fracture, right femur, initial encounter for fracture
CPT/HCPCS: 20610; 76000; 77002; A4216

== ENCOUNTER 2025-03-11 13:04 | Inpatient (IN) | payer MEDICARE, OTHER, SELFPAY ==
[2025-03-11] VITALS (22 sets, daily range): BP systolic 78–135; BP diastolic 51–95; PULSE 89–152; RESP 10–23; TEMP 36.6–36.8; O2SAT 94–100; BMI 16.9; BMI 16.7
--- NOTE | 2025-03-11 13:25 | RAD_ITS ---
PROCEDURE: CHEST 1 VIEW (PORTABLE) 03/11/2025 REASON FOR EXAM: HYPOTENSION TECHNIQUE: Frontal view of the chest. COMPARISON: None. FINDINGS: Cardiomegaly. No significant vascular congestion. No appreciable focal consolidation, pneumothorax or sizable pleural effusion. Mild degenerative changes of the spine and bilateral shoulders. RAD/Chest 1 View (Portable) IMPRESSION: Cardiomegaly. No acute pulmonary disease. Reading Location: [id number]
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
[2025-03-11 13:45] LABS: Hematocrit 35.9 % (37-47); Hemoglobin 12.1 g/dL (12.0-15.0); Immature Granulocytes Count 0.010 X10^3/uL (0.0-0.0); Mean Corp Hgb Conc 33.7 g/dL (32-36); Mean Corpuscular Volume 96.5 fL (81-99); Mean Platelet Vol. 10.3 fl (6.2-12.0); NRBC Flagged by Analyzer 0 % (0-5); POSITIVE DIFFERENTIAL YES; POSITIVE MORPHOLOGY YES; Platelet Count 182 K/mm3 (150-450); RBC Distribution Width CV 12.3 % (11.6-14.6); RBC Distribution Width SD 43.6 fl (35.1-43.9); Red Blood Count 3.72 M/mm3 (4.2-5.4); White Blood Count 5.9 K/mm3 (4.4-11.0)
[2025-03-11] MEDS: 0.9% Normal Saline (1000mL) 1,000 ML 999 ML IV ×2 (13:45→18:46)
[2025-03-11 13:56] LABS: Mucous, Urine 0 SEEN /hpf (<or=2+); Squamous Epithelial Cells - UA 0 SEEN /hpf (5-10)
--- OUTSIDE RECORDS SUMMARY | 2025-03-11 13:58 | XMS RPT_ITS | CCD ---
Author Organization [facility] CliniSyor Care Team Providers Care Outcomes Manager Name Role Phone Maryanne Valencia Unavailable Unavailable Primary Care Provider Unavailabl e Kiran DO, Cara F Primary Care Provider Kiran DO, Cara Davidson Primary Care Provider SYSTEM, PROVIDER NOT IN [...] KIRAN, CARA F Primary Care Unavailable GI FRANCES. Attending Unavaila ble GI FRANCES Referring Unavaila ble KIRAN, CARA F Primary Care Unavailable KIRAN, CARA F Primary Care Unavailable GI FRANCES. Attending Unavaila ble GI FRANCES. Referring Unavaila ble KIRAN, CARA F Primary Care Unavailable GI FRANCES Admitting Unavaila ble GI FRANCES. Referring Unavaila ble KIRAN, CARA F Primary Care Unavailable GI FRANCES Attending Unavaila ble GI FRANCES Admitting Unavaila ble KIRAN, CARA F Referring Unavailable KIRAN, CARA F Admitting Unavailable ELVIN, JAKAI Attending Unavailable KIRAN, CARA F Primary Care Unavailable KIRAN, CARA F Primary Care Unavailable ELVIN, JAKAI Admitting Unavailable ELVIN, JAKAI Attending Unavailable KIRAN, CARA F Referring Unavailable Dr. Cara Arce Primary Care Provider [phone] Dr. Cara Arce Referring Provider [phone] Friend, Dr. Finch Attending Provider Dr. Fransisca Orlando Attending Provider Friend, Dr. Finch Other Provider Dr. Casie Trevizo Primary Care Provider Dr. Casie Trevizo Referring Provider Dr. Cara Arce Primary Care Provider Dr. Cara Arce Referring Provider Dr. Fransisca Orlando Attending Provider Friend, Dr. Finch Attending Provider Friend, Dr. Finch Other Provider Dr. Casie Trevizo Primary Care Provider Joseline, Dr. Casie Burnham Referring Provider Dr. Fransisca Orlando Attending Provider Dr. Casie Trevizo Primary Care Provider Dr. Casie Trevizo Referring Provider Friend, Dr. Finch Attending Provider MD Cara Marcus Primary Care Provider Unav ailable Dr. Csaie Trevizo Primary Care Provider Dr. Casie Trevizo Referring Provider Dr. Fransisca Orlando Attending Provider Cara Arce MD Primary Care Provider GUSTABO SALDIVAR Attending Unavailable CASE PHAN Admitting Unavailable CARA ARCE Primary Care Unavailable DUMFORD III, BRIGIDO Emmanuel MD, Dr. Casie Burnham Primary Care Provider Dr. Casie Trevizo MD Referring Provider Marcelo DATA SECURITY CONSULTANT-C, Evelyn Attending Provider Marcelo DATA SECURITY CONSULTANT-C, Evelyn Other Provider Sukumar Velazquez MD Attending Provider Unavailasim Velazquez MD, Dr. Patino Attending Provider Corine DATA SECURITY CONSULTANT-C, Brooke E Attending Provider Corine DATA SECURITY CONSULTANT-C, Brooke E Referring Provider Caroline DENIS, Sukumar Referring Provider Unavailasim Orlando MD, Dr. Gongora Attending Provider Dr. Fransisca Orlando MD Referring Provider Danial DENIS, Dr. Juan Carlos Vera Attending Provider Joseline DENIS, Dr. Casie Burnham Attending Provider Puma DENIS, Dr. Wolfe Attending Provider Puma DENIS, Dr. Wolfe Referring Provider Domi DATA SECURITY CONSULTANT-C, Ally Attending Provider Joseline DENIS, Dr. Casie Burnham Primary Care Provider Joseline DENIS, Dr. Casie Burnham Referring Provider Darion DENIS, Dr. Gongora Attending Provider Dr. Fransisca Orlando MD Referring Provider Robertson DATA SECURITY CONSULTANT-C, Evelyn Other Provider Danial DENIS, Dr. Juan Carlos Vera Attending Provider Caroline DENIS, Sukumar Attending Provider Unavailasim Velazquez MD, Sukumar Referring Provider Unavailasim Trevizo MD, Dr. Casie Burnham Attending Provider Robertson DATA SECURITY CONSULTANT-C, Evelyn Attending Provider Dr. Aiden Bartholomew MD Attending Provider Dr. Aiden Bartholomew MD Referring Provider Tickarminda DATA SECURITY CONSULTANT-C, Ally Attending Provider Joseline DENIS, Dr. Casie Burnham Primary Care Provider Joseline DENIS, Dr. Casie Burnham Referring Provider Robertson DATA SECURITY CONSULTANT-C, Evelyn Attending Provider Robertson DATA SECURITY CONSULTANT-C, Evelyn Other Provider Yasmin DENIS, Ye Primary Care Provider Yasmin DENIS, Ye Attending Provider Yasmin DENIS, Ye Referring Provider [phone] Joseline DENIS, Dr. Casie Burnham Primary Care Provider Joseline DENIS, Dr. Casie Burnham Referring Provider Marcelo DATA SECURITY CONSULTANT-C, Evelyn Attending Provider Marcelo DATA SECURITY CONSULTANT-C, Evelyn Other Provider [phone] Cj DENIS, Dr. Graves Attending Provider Cj DENIS, Dr. Graves Referring Provider Jolliff, Casie S Primary Care Unavailable Jolliff, Casie S Referring Unavailable Jolliff, Casie S Attending Unavailable Jolliff, Casie S Primary Care Unavailable Oleghe OLS, Efewongbe Attending Unavailabl e Jolliff, Casie S Primary Care Unavailable Oleghe OLS, Efewongbe Referring Unavailabl e Oleghe OLS, Efewongbe Attending Unavailabl e Oleghe OLS, Efewongbe Attending Unavailabl e Jolliff, Casie S Primary Care Unavailable Jolliff, Casie S Primary Care Unavailable Oleghe OLS, Efewongbe Attending Unavailabl e Oleghe OLS, Efewongbe Attending Unavailabl e Jolliff, Casie S Primary Care Unavailable Jolliff, Casie S Primary Care Unavailable Oleghe OLS, Efewongbe Attending Unavailabl e Jolliff, Casie S Primary Care Unavailable MotaKishore Attending Unavailable Jolliff, Casie S Referring Unavailable Jolliff, Casie S Primary Care Unavailable Isckarus, Mansour Referring Unavailable Isckarus, Mansour Attending Unavailable Oleghe OLS, Efewongbe Attending Unavailabl e Jolliff, Casie S Primary Care Unavailable Jolliff, Casie S Primary Care Unavailable MotaKishore Attending Unavailable Jolliff, Casie S Referring Unavailable Jolliff, Casie S Primary Care Unavailable Jolliff, Casie S Referring Unavailable Robertson DATA SECURITY CONSULTANT, Evelyn Attending Unavailable Jolliff, Casie S Primary Care Unavailable Robertson DATA SECURITY CONSULTANT, Evelyn Attending Unavailable Jolliff, Casie S Referring Unavailable Jolliff, Casie S Primary Care Unavailable Robertson DATA SECURITY CONSULTANT, Evelyn Attending Unavailable Jolliff, Casie S Referring Unavailable Robertson DATA SECURITY CONSULTANT, Evelyn Attending Unavailable Jolliff, Casie S Referring Unavailable Jolliff, Casie S Primary Care Unavailable Nathen Ontiveros Referring Unavailable Nathen Ontiveros Attending Unavailable Jolliff, Casie S Primary Care Unavailable Star Corona Attending Unavailable Star Corona Referring Unavailable Yasimn, Chalon Primary Care Unavailable Yasmin, Chalon Primary Care Unavailable YasminDonon Attending Unavailable Yasmin, Chalon Referring Unavailable Oleghe OLS Efewongbe Attending Unavailabl e Jolliff, Casie S Primary Care Unavailable Oleghe OLS Efewongbe Attending Unavailabl e Jolliff, Casie S Primary Care Unavailable Jolliff, Casie S Primary Care Unavailable Morales, Achintya Consulting Unavailable Morales, Achintya Admitting Unavailable Ciaran Garcia Attending Unavailable Isma, Gonzalez Consulting Unavailable AngeloeriCarlos Consulting Unavailable Jolliff, Casie S Primary Care Unavailable Ally Duron NP Attending Unavailable Oleghe OLS, Efewongbe Attending Unavailabl e Jolliff, Casie S Primary Care Unavailable Jolliff, Casie S Primary Care Unavailable Morales, Achintya Consulting Unavailable Morales, Achintya Admitting Unavailable Carlos Munoz Attending Unavailable Isma, Gonzalez Consulting Unavailable Tammy Carlos Consulting Unavailable Dannie Parr Referring Unavailable Dannie Parr Attending Unavailable Jolliff, Casie S Primary Care Unavailable Jolliff, Casie S Primary Care Unavailable Kishore Mota Consulting Unavailable Oleghe, Efewongbe Attending Unavailable Jolliff, Casie S Referring Unavailable Jolliff, Casie S Primary Care Unavailable Mota Kishore Consulting Unavailable Oleghe, Efewongbe Attending Unavailable Jolliff, Casie S Referring Unavailable Jolliff, Casie S Primary Care Unavailable Corine DATA SECURITY CONSULTANT, Brooke Haile Referring Unavailabl issa Pool DATA SECURITY CONSULTANT, Brooke Haile Attending Unavailabl e Marcelo DATA SECURITY CONSULTANT, Evelyn Consulting Unavailable Aiden Bartholomew Referring Unavailable Jolliff, Casie S Primary Care Unavailable Aiden Bartholomew Attending Unavailable Marcelo DATA SECURITY CONSULTANT, Evelyn Consulting Unavailable Ciaran Garcia Attending Unavailable Ciaran Garcia Consulting Unavailable Morales, Achintya Attending Unavailable Isma, Gonzalez Attending Unavailable Jolliff, Casie S Primary Care Unavailable Domi PAGAN, Ally Attending Unavailable Jolliff, Casie S Primary Care Unavailable Fransisca Orlando Attending Unavailable Jolliff, Casie S Referring Unavailable Jolliff, Casie S Primary Care Unavailable Oleghe, Efewongbe Attending Unavailable Jolliff, Casie S Primary Care Unavailable Domi DATA SECURITY CONSULTANT, Ally Attending Unavailable Oleghe, Efewongbe Attending Unavailable Jolliff, Casie S Primary Care Unavailable Oleghe OLS, Efewongbe Attending Unavailabl e Jolliff, Casie S Primary Care Unavailable Jolliff, Casie S Primary Care Unavailable Marcelo DATA SECURITY CONSULTANT, Evelyn Attending Unavailable Jolliff, Casie S Referring Unavailable Oleghe OLS, Efewongbe Attending Unavailabl e Jolliff, Casie S Primary Care Unavailable Oleghe OLS, Efewongbe Attending Unavailabl e Jolliff, Casie S Primary Care Unavailable Jolliff, Casie S Primary Care Unavailable Oleghe OLS, Efewongbe Attending Unavailabl e Jolliff, Casie S Primary Care Unavailable Kishore Mota Attending Unavailable Jolliff, Casie S Referring Unavailable Jolliff, Casie S Primary Care Unavailable Star Corona Referring Unavailable CjStar Attending Unavailable Jolliff, Casie S Primary Care Unavailable Oleghe OLS, Efewongbe Referring Unavailabl e Oleghe OLS, Efewongbe Attending Unavailabl e Jolliff, Casie S Referring Unavailable Jolliff, Casie S Primary Care Unavailable Marcelo PAGAN, Evelyn Attending Unavailable Jolliff, Casie S Primary Care Unavailable Jolliff, Casie S Referring Unavailable Marcelo DATA SECURITY CONSULTANT, Evelyn Attending Unavailable Allergies Allergy Classification Reported Allergen(s) Allergy Type Date of Onset Reaction(s) Facility ziconotide (6 sources) ziconotide Drug Allergy 1 [facility] (16 sources) ziconotide; Translations: [ZICONOTIDE] Drug Allergy 1 Other: See Comments [facility] Comment on above: seizure like activit y (1 source) ziconotide Drug Allergy 5 [facility] Repository Medications Current Medications Medication Drug Class(es) Dates Sig (Normalized) Sig (Original) acetaminophen 325 mg oral tablet (4 sources) take 2 tablets by mouth every six hours as needed acetaminophen (TYLENOL) 325 mg tablet Take 650 mg by mouth four times a day as needed for pain. Active acetaminophen 325 mg / oxyCODONE hydrochloride 10 mg oral tablet (13 sources) Opioid Agonist Start: 11-11-2019 take 1 tablet by mouth four times daily Oxycodone-Acetamin ophen Active 1 TABLET PO 4 TIMES DAILY November 11, 2019 12:00am amitriptyline hydrochloride 25 mg oral tablet (20 sources) Tricyclic Antidepressant Start: 01-24-2021 End: 01-24-2022 take 1 tablet by mouth once daily amitriptyline (ELAVIL) 25 MG tablet Indications: Neuropathic pain Take 1 (one) tablet (25 mg total) by mouth nightly . 30 tablet 11 01/24/2021 01/24/2022 Active Start: 11-15-2020 End: 01-24-2021 take 1 tablet by mouth once daily amitriptyline (ELAVIL) 10 MG tablet Indications: Neuropathic pain Take 1 (one) tablet (10 mg total) by mouth nightly . 90 tablet 3 11/15/2020 01/24/2021 Discontinued Start: 04-10-2015 End: 04-21-2019 take 1 tablet by mouth three times daily Amitriptyline 50 MG tablet Discontinued 50 mg PO THREE TIMES A DAY April 19, 2019 1:00am April 21, 2019 12:43pm depression ceFAZolin 2000 mg injection (3 sources) Cephalosporin Antibacterial Start: 04-22-2024 End: 05-10-2024 inject 100 mL intravenously every eight hours ceFAZolin (ANCEF) 2 gram/100 mL in dextrose (iso-osmotic) Inject 100 mL intravenously every 8 hours for 18 days. 5400 mL 04/22/2024 05/10/2024 Active cloNIDine hydrochloride 0.2 mg oral tablet (20 sources) Central alpha-2 Adrenergic Agonist Start: 10-15-2018 take 1 tablet by mouth at bedtime Clonidine Hcl 0.2 mg Tablet Active 0.2 mg PO AT BEDTIME September 04, 2020 12:00am denosumab (4 sources) RANK Ligand Inhibitor DENOSUMAB (PROLIA SUBCUTANEOUS) Inject subcutaneously. One injection every 6 months. Active DENOSUMAB (PROLI A SUBCUTANEOUS) Inject subcutaneously. One injection every 6 months. Suspended docusate sodium 50 mg / sennosides, fpc 8.6 mg oral tablet (20 sources) Start: 04-22-2024 take 1 tablet by mouth every twelve hours as needed senna-docusate (SENNA-S) 8.6-50 mg per tablet Take 1 tablet by mouth two times a day as needed for constipation. 04/22/2024 Active Start: 02-09-2017 End: 08-17-2017 take 1 tablet by mouth twice daily Sennosides-Docusate Sodium (Stool Softener-Stimulant Laxat) 1 TABLET tablet Discontinued 2 {tbl} PO TWICE A DAY 120 0 February 09, 2017 12:00am August 17, 2017 11:14am Start: 02-09-2017 End: 08-17-2017 DULoxetine 30 mg delayed release oral capsule (20 sources) Serotonin and Norepinephrine Reuptake Inhibitor Start: 03-31-2024 take 2 capsules by mouth once daily Duloxetine 30 mg capsule,delayed release(DR/EC) Active 30 mg PO DAILY March 31, 2024 1:00am WITH 60MG TOTAL DAILY DOSE 90MG Start: 01-14-2021 Duloxetine (Cy mbalta) 60 mg Capsule,Delayed Release(Dr/Ec) Active 60 mg PO DAILY January 14, 2021 12:00am WITH 30 MG TOTAL DAILY DOSE 90MG Start: 01-14-2021 Start: 01-14-2021 take 1 capsule by mo [facility] once daily Duloxetine (Cymbalta) 60 mg Capsule,Delayed Release(Dr/Ec) Active 60 MG PO DAILY January 14, 2021 12:00am Start: 11-15-2020 DULoxetine (CY MBALTA) 30 MG capsule Indications: Neuropathic pain Take 30 mg by mouth once daily for one week then stop. . 7 capsule 0 11/15/2020 Active Start: 09-10-2020 End: 09-10-2021 take 1 capsule by mouth twice daily DULoxetine (CYMBALTA) 60 MG capsule Indications: Neuropathic pain Take 1 (one) capsule (60 mg total) by mouth 2 (two) times a day . 60 capsule 11 09/10/2020 09/10/2021 Active Start: 09-11-2013 End: 09-10-2020 take 1 capsule by mouth once daily Duloxetine 60 MG capsule Discontinued 60 mg PO DAILY September 11, 2013 12:00am September 15, 2013 4:23pm Start: 09-11-2013 End: 09-15-2013 take 3 capsules by m outh once daily in the evening, then take 1 capsule by mouth once daily in the morning DULoxetine (CYMBALTA) 30 mg capsule Take 90 mg by mouth once daily. 30 mg daily in the morning 60 mg daily in the evening Active Food Supplemt, Lactose-Reduced (Ensure Plus High Protein) 0.08 gram-1.5 kcal/mL Liquid (3 sources) Start: 04-05-2024 Food Supplemt, Lactose-Reduced (Ensure Plus High Protein) 0.08 gram-1.5 kcal/mL Liquid Active 120 mL PO 4 TIMES DAILY 0 April 05, 2024 1:00am gabapentin 800 mg oral tablet (20 sources) Anti-epilept ic Agent Start: 11-18-2018 take 1 tablet by mouth four times daily at mealtime Gabapentin 800 MG tablet Active 800 mg PO 4 TIMES DAILY WITH MEALS 30 0 April 21, 2019 1:00am Start: 04-10-2015 End: 04-21-2019 Gabapentin 600 MG tablet Discontinued 800 mg PO 4 TIMES DAILY WITH MEALS April 10, 2015 11:05am April 21, 2019 12:40pm pain Start: 09-11-2013 End: 04-10-2015 take 1 tablet by mouth four times daily at mealtime Gabapentin 600 MG tablet Discontinued 600 mg PO 4 TIMES DAILY WITH MEALS 1 September 15, 2013 12:00am April 10, 2015 11:05am Start: 09-11-2013 End: 04-21-2019 gabapentin (NEUR ONTIN) 800 MG tablet Take 800 mg by mouth 4 (four) times a day (Days supply per fill: 30) . 0 Active hydromorphone HCl/PF (DILAUDID, PF, INJ) (11 sources) hydromorphone HC l/PF (DILAUDID, PF, INJ) Inject as directed In pain pump along with baclofen . 0 Active Inulin (4 sources) take 1 dose by mouth once daily inulin (FIBER GUMMIES ORAL) Take 1 Each by mouth once daily. Active take 1 dose by mouth once daily inulin (FIBER GUMMIES ORAL) Take 1 Each by mouth once daily. Suspended lubiprostone 0.008 mg oral capsule (1 source) Chloride Channel Activator Start: 06-06-2022 take 1 capsule by mouth once daily Lubiprostone (Amitiza) 8 mcg capsule Active 8 MCG PO DAILY 90 June 06, 2022 1:00am NaCl (PF) 0.9% soln (4 sources) NaCl (PF) 0.9% s oln by INTRATHECAL route continuous. Hydromorphone and baclofen Active NaCl (PF) 0.9% s oln by INTRATHECAL route continuous. Hydromorphone and baclofen Suspended naloxone 4 mg/actuation nasal spray (NARCAN) (3 sources) Start: 04-22-2024 naloxone 4 mg/actuation nasal spray (NARCAN) Use 1 spray in one nostril as needed for overdose. May repeat every 2 to 3 min in alternating nostrils until medical assistance is available 0 04/22/2024 Active naproxen 375 mg oral tablet (20 sources) Nonsteroidal Anti-inflammatory Drug Start: 04-13-2024 take 1 tablet by mouth twice daily Naproxen 375 mg tablet Active 375 mg PO TWICE A DAY April 13, 2024 1:00am Start: 07-19-2015 End: 04-05-2024 take 1 tablet by mouth twice daily Naproxen 375 MG tablet Discontinued 375 mg PO TWICE A DAY July 19, 2015 12:00am April 05, 2024 11:55am pain Start: 07-07-2014 End: 04-12-2015 Naproxen 500 MG tablet Disco ntinued 375 mg PO TWICE A DAY July 07, 2014 1:00am April 12, 2015 5:17pm Start: 07-07-2014 End: 04-12-2015 Start: 09-11-2013 End: 09-15-2013 take 375 mg by mouth twice daily as needed for pain Naproxen Sodium (Naprelan) 375 MG Tbmp.24hr Discontinued 375 mg PO TWICE DAILY NEEDED as needed for Pain September 11, 2013 12:00am September 15, 2013 4:24pm ondansetron 4 mg oral tablet (4 sources) Serotonin-3 Receptor Antagonist Start: 12-16-2023 take 1 tablet by mouth three times daily as needed for nausea and vomiting Ondansetron Hcl 4 mg tablet Active 4 mg PO 3 TIMES DAILY NEEDED as needed for nausea and vomiting December 16, 2023 12:00am polyethylene glycol 3350 24309 mg powder for oral solution (20 sources) Osmotic Laxative Start: 02-09-2017 End: 12-02-2018 take 17 g by mouth once daily as needed for constipation Polyethylene Glycol 3350 17 GM packet Active 17 g PO DAILY NEEDED as needed for Constipation December 02, 2018 9:44pm Start: 02-09-2017 End: 12-02-2018 Polyethylene Glycol 3350 (Mi ralax) 17 gram/dose powder Active 17 GM PO TWICE A DAY 119 December 26, 2021 12:00am Start: 05-11-2015 End: 09-14-2015 Polyethylene Glycol 3350 17 GM Packet Discontinued 17 g PO 0800 30 0 May 11, 2015 1:00am September 14, 2015 3:23pm Polyethylene Glycols (4 sources) take 1 dose by mouth once daily as needed for constipation POLYETHYLENE GLYCOL 3350 (MIRALAX ORAL) Take 1 Packet by mouth once daily as needed (constipation). Active take 1 dose by mouth once daily as needed for constipation POLYETHYLENE GLYCOL 3350 (MIRALAX ORAL) Take 1 Packet by mouth once daily as needed (constipation). Suspended prednisoLONE (6 sources) Corticosteroid Start: 12-10-2021 prednisolone A ctive December 10, 2021 12:00am WHEELCHAIR MISC (4 sources) Start: 01-26-2006 WHEELCHAIR MIS C STANDING WHEELCHAIR 1 1 01/26/2006 Active Start: 01-26-2006 WHEELCHAIR MIS C STANDING WHEELCHAIR 1 1 01/26/2006 Suspended (8 sources) Start: 04-13-2024 Start: 04-05-2024 Start: 01-21-2017 End: 02-09-2017 Start: 08-06-2015 End: 09-14-2015 Start: 08-02-2015 End: 04-21-2019 Start: 05-05-2015 End: 05-13-2015 Start: 09-15-2013 End: 09-30-2013 Start: 09-13-2013 End: 09-15-2013 Completed/Discontinued Medications Medication Drug Class(es) Dates Sig (Normalized) Sig (Original) albuterol 0.83 mg/ml inhalation solution (18 sources) beta2-Adrenergic Agonist Start: 04-21-2019 End: 11-11-2019 Albuterol Sulfate 2.5 MG/3 ML solution for nebulization Discontinued 2.5 mg INHALATION EVERY 6 HOURS WHILE AWAKE 1 0 April 21, 2019 1:00am November 11, 2019 10:12am use for 7 days, then stop Start: 04-21-2019 End: 11-11-2019 amoxicillin 875 mg / clavulanate 125 mg oral tablet (20 sources) Penicillin-class Antibacterial Start: 04-21-2019 End: 11-11-2019 take 1 tablet by mouth every twelve hours Amoxicillin-Pot Clavulanate 875 MG tablet Discontinued 875 mg PO Q12H 14 0 April 21, 2019 1:00am November 11, 2019 10:12am Start: 01-21-2017 End: 02-09-2017 Amoxicillin-Pot Clavulanate (Augmentin 875-125 Tablet) 1 EACH tablet Discontinued 1 NMA PO TWICE A DAY 10 January 21, 2017 12:00am February 09, 2017 10:46pm Start: 01-21-2017 End: 02-09-2017 ampicillin 2000 mg / sulbactam 1000 mg injection (18 sources) Penicillin-class Antibacterial, beta Lactamase Inhibitor Start: 08-06-2015 End: 09-14-2015 Ampicillin-Sulbactam 3 GM/12 ML Vial Discontinued 3 g IV EVERY 6 HOURS 140 August 06, 2015 12:00am September 14, 2015 3:21pm Awcit-Cyqa-Pfil b-Emlhht-Za-Min (Leeroy (With Collagen)) 1 PACKET Packet (20 sources) Start: 08-06-2015 End: 09-14-2015 take 1 dose by mouth twice daily at mealtime Cihya-Cbii-Sghdi-Collag- Mv-Min (Leeory (With Collagen)) 1 PACKET Packet Discontinued 1 PACKET PO TWICE DAILY WITH MEALS August 06, 2015 6:34pm September 14, 2015 3:22pm Start: 08-06-2015 End: 09-14-2015 take 1 dose by mouth twice daily at mealtime Wmiup-Ehjb-Urptp-Eeamqc-Ev-Wpg (Leeroy (W ith Collagen)) 1 PACKET Packet Discontinued 1 NMA PO TWICE DAILY WITH MEALS 30 August 06, 2015 12:00am September 14, 2015 3:22pm Start: 08-06-2015 End: 09-14-2015 take 1 dose by mouth twice daily at mealtime Ctmcm-Mnaa-Qflzk-Wogqsv-Gy-Fyd (Leeroy (W ith Collagen)) 1 PACKET Packet Discontinued 1 PACKET PO TWICE DAILY WITH MEALS August 05, 2015 11:00pm September 14, 2015 2:22pm Start: 08-06-2015 End: 09-14-2015 take 1 dose by mouth twice daily at mealtime Cnwfv-Txyk-Sskrb-Sqhgjx-Xo-Wwi (Leeroy (W ith Collagen)) 1 PACKET Packet Discontinued 1 PACKET PO TWICE DAILY WITH MEALS August 06, 2015 12:00am September 14, 2015 3:22pm Start: 05-05-2015 End: 05-13-2015 take 1 dose by mouth twice daily at mealtime Ryhbw-Hzsg-Hcbyt-Dbmrcz-Ue-Rgq (Leeroy (W ith Collagen)) 1 PACKET Packet Discontinued 1 PACKET PO TWICE DAILY WITH MEALS May 05, 2015 10:32am May 13, 2015 3:21pm Start: 05-05-2015 End: 05-13-2015 take 1 dose by mouth twice daily at mealtime Jpidd-Zbey-Jhulo-Jovuct-Ko-Igi (Leeroy (W ith Collagen)) 1 PACKET Packet Discontinued 1 NMA PO TWICE DAILY WITH MEALS May 05, 2015 1:00am May 13, 2015 3:21pm Start: 05-05-2015 End: 05-13-2015 take 1 dose by mouth twice daily at mealtime Zbarb-Qrpc-Eepyl-Pucwrl-Vm-Gyd (Leeroy (W ith Collagen)) 1 PACKET Packet Discontinued 1 PACKET PO TWICE DAILY WITH MEALS May 05, 2015 12:00am May 13, 2015 2:21pm Start: 05-05-2015 End: 05-13-2015 take 1 dose by mouth twice daily at mealtime Zozxl-Wyom-Pwyxj-Agklnp-Zm-Qly (Leeroy (W ith Collagen)) 1 PACKET Packet Discontinued 1 PACKET PO TWICE DAILY WITH MEALS May 05, 2015 1:00am May 13, 2015 3:21pm bacitracin zinc 0.5 unt/mg topical ointment (18 sources) Start: 09-15-2013 End: 09-30-2013 Bacitracin Zinc 1 APPLIC Tub e Discontinued 1 NMA TOPICAL DAILY 1 0 September 15, 2013 12:00am September 30, 2013 2:59pm Start: 09-15-2013 End: 09-30-2013 Start: 09-15-2013 End: 09-30-2013 Bacitracin Zinc Discontinued 1 APPLIC TOPICAL DAILY 1 September 14, 2013 11:00pm September 30, 2013 1:59pm baclofen 10 mg oral tablet (20 sources) gamma-Aminobutyric Acid-ergic Agonist Start: 12-02-2018 End: 04-21-2019 take 2 tablets by mouth three times daily Baclofen 10 MG tablet Discontinued 20 mg PO THREE TIMES A DAY December 02, 2018 12:00am April 21, 2019 12:42pm pain Start: 12-02-2018 End: 11-11-2019 take 1 tablet by mouth three times daily Baclofen 10 MG tablet Discontinued 10 mg PO THREE TIMES A DAY 0 April 21, 2019 1:00am November 11, 2019 10:15am Start: 12-02-2018 End: 04-21-2019 take 20 mg by mouth three times daily Baclofen Discontinued 20 MG PO THREE TIMES A DAY December 01, 2018 11:00pm April 21, 2019 11:42am take 1 tablet by kendell th once daily Baclofen 20 MG Oral Tablet 1 daily (20 MG) Active calcium ascorbate 50 mg / ferrous asparto glycinate 50 mg / polysaccharide iron complex 100 mg / succinic acid 50 mg oral capsule (18 sources) Start: 07-20-2015 End: 09-14-2015 Iron Aspgl,Ps Complex-Vit C-Sa (Ferrex 150 Plus) 150 MG capsule Discontinued 150 mg PO DAILY WITH MEALS 30 2 July 20, 2015 12:00am September 14, 2015 3:22pm cefdinir 300 mg oral capsule (4 sources) Cephalosporin Antibacterial Start: 12-24-2023 End: 03-31-2024 take 1 capsule by mouth twice daily Cefdinir 300 mg capsule Discontinued 300 mg PO TWICE A DAY 28 14 0 December 24, 2023 12:00am March 31, 2024 5:02pm cephalexin 250 mg oral capsule (20 sources) Cephalosporin Antibacterial Start: 04-13-2024 End: 01-16-2025 take 1 capsule by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 Residual codes; unclassified (1 source) Dependence on other enabling machines and devices; Translations: [Dependence on other enabling machines and devices] Onset: Chronic Residual codes; unclassified (18 sources) Insomnia; Translations: [Insomnia, unspecified] 12-27-2021 Episodic Residual codes; unclassified (18 sources) Disturbance of consciousness; Translations: [Transient alteration of awareness] 11-11-2019 Episodic Residual codes; unclassified (18 sources) Finding related to ability to manage personal health care; Translations: [Other specified health status] 03-03-2022 Episodic Comment on above: 4-5X PER DAY Residual codes; unclassified (20 sources) Other specified health status; Translations: [Other specified conditions influencing health status] Episodic Residual codes; unclassified (14 sources) Sign; Translations: [Other general symptoms and signs] 01-03-2022 Episodic Residual codes; unclassified (4 sources) Other general symptoms and signs; Translations: [Other general symptoms] 05-19-2008 Episodic Respiratory failure; insufficiency; arrest (adult) (4 sources) Respiratory failure; Translations: [Respiratory failure, unspecified, unspecified whether with hypoxia or hypercapnia] 12-07-2009 Episodic Screening and history of mental health and substance abuse codes (4 sources) H/O: depression; Translations: [Personal history of other mental and behavioral disorders] Onset: 04-17-2024 Episodic Spondylosis; intervertebral disc disorders; other back problems (18 sources) Degeneration of lumbosacral intervertebral disc; Translations: [Other intervertebral disc degeneration, lumbosacral region] 05-10-2018 Chronic Spondylosis; intervertebral disc disorders; other back problems (20 sources) Chronic back pain ; Translations: [Dorsalgia, unspecified] Episodic Unclassified (1 source) Rectal fistula, unspecified; Translations: [Rectal fistula, unspecified] Onset: Urinary tract infections (20 sources) Urinary tract infectious disease; Translations: [Urinary tract infection, site not specified] 12-27-2021 Episodic Past or Other Problems Problem Classification Problem Date Documented Da te Episodic/Chronic Abdominal pain (20 sources) Chronic abdominal pain; Translations: [Unspecified abdominal pain] Onset: 04-29-2024 Episodic Anal and rectal conditions (20 sources) Rectal fistula; 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] Onset: 05-16-2024 04-13-2024 Episodic Cardiac dysrhythmias (5 sources) Sinus tachycardia; Translations: [Tachycardia, unspecified] Onset: 04-12-2024 04-10-2024 Episodic Deficiency and other anemia (9 sources) Anemia, unspecified; Translations: [Anemia, unspecified] Onset: 11-01-2024 Episodic Gastritis and duodenitis (4 sources) Acute gastritis; Translations: [Acute gastritis without bleeding] Onset: 05-31-2008 05-31-2008 Episodic Noninfectious gastroenteritis (6 sources) Colitis; Translations: [Noninfective gastroenteritis and colitis, unspecified] Onset: 04-12-2024 04-10-2024 Episodic Other connective tissue disease (4 sources) Pain in limb; Translations: [Pain in unspecified limb] Onset: 12-29-2001 11-12-2023 Episodic Other gastrointestinal disorders (20 sources) Other constipation; Translations: [Constipation, unspecified] Onset: 04-12-2024 Episodic Other injuries and conditions due to external causes (1 source) Other injury of unspecified body region, initial encounter; Translations: [Other injury of unspecified body region, initial encounter] Onset: 11-01-2024 Episodic Other nervous system disorders (19 sources) 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; Translations: [Other causes of myelitis] Onset: 12-07-2009 Episodic Other screening for suspected conditions (not mental disorders or infectious disease) (1 source) Encounter for screening mammogram for malignant neoplasm of breast; Translations: [Encounter for screening mammogram for malignant neoplasm of breast] Onset: 07-22-2024 Episodic Other skin disorders (4 sources) Eruption of vulva; Translations: [Rash and other nonspecific skin eruption] Onset: 09-10-2012 Resolved: 07-26-2013 07-26-2013 Episodic Residual codes; unclassified (4 sources) Patient encounter status; Translations: [Pain, unspecified] Onset: 09-20-2022 09-28-2022 Episodic Septicemia (except in labor) (19 sources) Sepsis; Translations: [Sepsis, unspecified organism] Onset: 11-01-2024 12-27-2021 Episodic Skin and subcutaneous tissue infections (6 sources) Abscess; Translations: [Cutaneous abscess, unspecified] Onset: 04-13-2024 Resolved: 04-22-2024 04-14-2024 Episodic Unclassified (2 sources) Transverse myelitis Results Test Name Value Interpretation Reference Range Facility Fluoro Guided Needle Placeme nton 01-16-2025 Fluoro Guided Needle Placement Normal [facility] Operative Reporton Operative Report Normal [facility] Absolute lymphocyte countOrd ered By: Donmatias Yasmin on 12-27-2024 Lymphocytes Auto (Unsp spec) [#/Vol] 0.57 10*3/uL Low 0.83-4.51 [facility] Absolute neutrophil countOrd ered By: [facility] on 12-27-2024 Neutrophils (Bld) [#/Vol] 7.3 10*3/uL 2.0-7.7 [facility] Anion gap in Serum or Plasma Ordered By: Ye Hoffman on 12-27-2024 Anion gap [Moles/Vol] 12 mmol/L 5-15 [facility] Automated lymphocyte count a s percentage of total leukocytesOrdered By: Ye Hoffman on 12-27-2024 Lymphocytes/100 WBC Auto (Unsp spec) 6.8 % Low 19-41 [facility] BUN/creatinine ratioOrdered By: [facility] on 12-27-2024 Urea nitrogen/Creatinine [Mass ratio] 21.1 mg/mg High 10-20 [facility] Basophil percentageOrdered B y: Ye Hoffman on 12-27-2024 Basophils/100 WBC (Bld) 0.2 % 0-1 [facility] Bilirubin, totalOrdered By: Ye Hoffman on 12-27-2024 Bilirubin [Mass/Vol] 0.25 mg/dL 0.00-1.30 [facility] CBC W/Diff, Automatedon 12-03 Absolute Lymph 0.57 X10 3/uL Low 0.83-4.51 [facility] Comment on above: Performed By: #### L 100.0100 ####[facility] [address] [place], [address] Absolute Neut 7.3 X10 3/uL Normal 2.0-7.7 [facility] Comment on above: Performed By: #### L 100.0100 ####[facility] [address] [place], [address] Basophils/100 WBC (Bld) 0.2 % Normal 0-1 [facility] Comment on above: Performed By: #### L 100.0100 ####[facility] [address] [place], [address] Eosinophils/100 WBC (Bld) 1.0 % Normal 0-5 [facility] Comment on above: Performed By: #### L 100.0100 ####[facility] [address] [place], [address] Erythrocyte distribution width (RBC) [Ratio] 13.1 % Normal 11.6-14.6 [facility] Comment on above: Performed By: #### L 100.0100 ####[facility] [address] [place], [address] Hematocrit (Bld) [Volume fraction] 38.0 % Normal 37-47 [facility] Comment on above: Performed By: #### L 100.0100 ####[facility] [address] [place], [address] Hemoglobin (Bld) [Mass/Vol] 12.7 g/dL Normal 12.0-15.0 [facility] Comment on above: Performed By: #### L 100.0100 ####[facility] [address] [place], [address] IG% 0.400 Normal 0.0-0.9 [facility] Comment on above: Result Comment: IG% - Immature Granulocytes (promyelocytes, myelocytes andmetamyelocytes) > 1% indicates that a LEFT SHIFT is Present. Performed By: #### L 100.0100 ####[facility] [address] [place], [address] Lymphocytes/100 WBC (Bld) 6.8 % Low 19-41 [facility] Comment on above: Performed By: #### L 100.0100 ####[facility] [address] [place], [address] MCH (RBC) [Entitic mass] 32.8 pg High 27.0-32.0 [facility] Comment on above: Performed By: #### L 100.0100 ####[facility] [address] [place], [address] MCHC (RBC) [Mass/Vol] 33.4 g/dL Normal 32-36 [facility] Comment on above: Performed By: #### L 100.0100 ####[facility] [address] [place], [address] MCV (RBC) [Entitic vol] 98.2 fL Normal 81-99 [facility] Comment on above: Performed By: #### L 100.0100 ####[facility] [address] [place], [address] Monocytes/100 WBC (Bld) 4.9 % Normal 0-10 [facility] Comment on above: Performed By: #### L 100.0100 ####[facility] [address] [place], [address] Neutrophils/100 WBC (Bld) 86.7 % High 47-70 [facility] Comment on above: Performed By: #### L 100.0100 ####[facility] [address] [place], [address] Nucleated RBC (Bld) [#/Vol] 0 10*3/uL Normal 0-5 [facility] Comment on above: Performed By: #### L 100.0100 ####[facility] [address] [place], [address] Platelet mean volume (Bld) [Entitic vol] 10.7 fL Normal 6.2-12.0 [facility] Comment on above: Performed By: #### L 100.0100 ####[facility] [address] [place], [address] Platelets (Bld) [#/Vol] 184 10*3/uL Normal 150-450 [facility] Comment on above: Performed By: #### L 100.0100 ####[facility] [address] [place], [address] RBC (Bld) [#/Vol] 3.87 10*6/uL Low 4.2-5.4 [facility] Comment on above: Performed By: #### L 100.0100 ####[facility] [address] [place], [address] RDW SD 46.8 fl High 35.1-43.9 [facility] Comment on above: Performed By: #### L 100.0100 ####[facility] [address] [place], [address] WBC (Bld) [#/Vol] 8.4 10*3/uL Normal 4.4-11.0 [facility] Comment on above: Performed By: #### L 100.0100 ####[facility] [address] [place], [address] CBC-Complete Blood Cnt No Di ffon 12-27-2024 HCT Normal 37-47 [facility] Comment on above: Order Comment: Order Date: 12/27/24Order Info: [id number] - CBC Result Comment: WRMATIAS G Performed By: #### L 501.9985, L501.9520, L503.6550, L500.4050, L100.0500, L503.6030, L500.4100 ####[facility] [address] [place], [address] HGB Normal 12.0-15.0 [facility] Comment on above: Order Comment: Order Date: 12/27/24Order Info: [id number] - CBC Result Comment: WRON G Performed By: #### L 501.9985, L501.9520, L503.6550, L500.4050, L100.0500, L503.6030, L500.4100 ####[facility] [address] [place], [address] MCH Normal 27.0-32.0 [facility] Comment on above: Order Comment: Order Date: 12/27/24Order Info: [id number] - CBC Result Comment: WRON G Performed By: #### L 501.9985, L501.9520, L503.6550, L500.4050, L100.0500, L503.6030, L500.4100 ####[facility] [address] [place], [address] MCHC Normal 32-36 [facility] Comment on above: Order Comment: Order Date: 12/27/24Order Info: [id number] - CBC Result Comment: WRON G Performed By: #### L 501.9985, L501.9520, L503.6550, L500.4050, L100.0500, L503.6030, L500.4100 ####[facility] [address] [place], [address] MCV Normal 81-99 [facility] Comment on above: Order Comment: Order Date: 12/27/24Order Info: [id number] - CBC Result Comment: WRON G Performed By: #### L 501.9985, L501.9520, L503.6550, L500.4050, L100.0500, L503.6030, L500.4100 ####[facility] [address] [place], [address] PLT Normal 150-450 [facility] Comment on above: Order Comment: Order Date: 12/27/24Order Info: [id number] - CBC Result Comment: WRON G Performed By: #### L 501.9985, L501.9520, L503.6550, L500.4050, L100.0500, L503.6030, L500.4100 ####[facility] [address] [place], [address] RBC Normal 4.2-5.4 [facility] Comment on above: Order Comment: Order Date: 12/27/24Order Info: [id number] - CBC Result Comment: WRON G Performed By: #### L 501.9985, L501.9520, L503.6550, L500.4050, L100.0500, L503.6030, L500.4100 ####[facility] [address] [place], [address] RDW CV Normal 11.6-14.6 [facility] Comment on above: Order Comment: Order Date: 12/27/24Order Info: [id number] - CBC Result Comment: WRON G Performed By: #### L 501.9985, L501.9520, L503.6550, L500.4050, L100.0500, L503.6030, L500.4100 ####[facility] [address] [place], [address] RDW SD Normal 35.1-43.9 [facility] Comment on above: Order Comment: Order Date: 12/27/24Order Info: [id number] - CBC Result Comment: WRON G Performed By: #### L 501.9985, L501.9520, L503.6550, L500.4050, L100.0500, L503.6030, L500.4100 ####[facility] [address] [place], [address] WBC Normal 4.4-11.0 [facility] Comment on above: Order Comment: Order Date: 12/27/24Order Info: [id number] - CBC Result Comment: WRON G Performed By: #### L 501.9985, L501.9520, L503.6550, L500.4050, L100.0500, L503.6030, L500.4100 ####[facility] [address] [place], [place], [address] Calculated very low density lipoprotein (VLDL) cholesterol measurementOrdered By: Ye Hoffman on 12-27-2024 Calculated very low density lipoprotein (VLDL) cholesterol measurement 10 mg/dL 5-40 [facility] Carbon dioxide, total [Moles /volume] in Central venous bloodOrdered By: Ye Hoffman on 12-27-2024 CO2 [Moles/Vol] 26.0 mmol/L 21.0-32.0 [facility] Chloride assayOrdered By: Juliocesar Hoffman on 12-27-2024 Chloride [Moles/Vol] 101 mmol/L 98-108 [facility] Comprehensive Metabolic Prof ilon 12-27-2024 Albumin [Mass/Vol] 4.2 g/dL Normal 3.4-4.8 [facility] Comment on above: Order Comment: Order Date: 12/27/24Order Info: [id number] - CMPOrder Info: [id number] - LIPIDOrder Info: [id number] - TSHOrder Info: [id number] - IBCOrder Info: [id number] - MEG Performed By: #### L 501.9985, L501.9520, L503.6550, L500.4050, L100.0500, L503.6030, L500.4100 ####[facility] [address] [place], [place], [address] Albumin/Globulin [Mass ratio] 1.6 {ratio} Normal 0.9-2.4 [facility] Comment on above: Order Comment: Order Date: 12/27/24Order Info: [id number] - CMPOrder Info: [id number] - LIPIDOrder Info: [id number] - TSHOrder Info: [id number] - IBCOrder Info: [id number] - MEG Performed By: #### L 501.9985, L501.9520, L503.6550, L500.4050, L100.0500, L503.6030, L500.4100 ####[facility] [address] [place], [address] ALK PHOS 48 U/L Normal 35-104 [facility] Comment on above: Order Comment: Order Date: 12/27/24Order Info: [id number] - CMPOrder Info: [id number] - LIPIDOrder Info: [id number] - TSHOrder Info: [id number] - IBCOrder Info: [id number] - MEG Performed By: #### L 501.9985, L501.9520, L503.6550, L500.4050, L100.0500, L503.6030, L500.4100 ####[facility] [address] [place], [address] ALT [Catalytic activity/Vol] 12 U/L Normal <=34 [facility] Comment on above: Order Comment: Order Date: 12/27/24Order Info: [id number] - CMPOrder Info: [id number] - LIPIDOrder Info: 3 - TSHOrder Info: [id number] - IBCOrder Info: 4 - MEG Performed By: #### L 501.9985, L501.9520, L503.6550, L500.4050, L100.0500, L503.6030, L500.4100 ####[facility] [address] [place], [address] AST [Catalytic activity/Vol] 21 U/L Normal <=31 [facility] Comment on above: Order Comment: Order Date: 12/27/24Order Info: [id number] - CMPOrder Info: [id number] - LIPIDOrder Info: [id number] - TSHOrder Info: [id number] - IBCOrder Info: [id number] - MEG Performed By: #### L 501.9985, L501.9520, L503.6550, L500.4050, L100.0500, L503.6030, L500.4100 ####[facility] [address] [place], [address] Bilirubin [Mass/Vol] 0.25 mg/dL Normal 0.00-1.30 [facility] Comment on above: Order Comment: Order Date: 12/27/24Order Info: [id number] - CMPOrder Info: [id number] - LIPIDOrder Info: 6-3 - TSHOrder Info: [id number] - IBCOrder Info: [id number] - MEG Performed By: #### L 501.9985, L501.9520, L503.6550, L500.4050, L100.0500, L503.6030, L500.4100 ####[facility] [address] [place], [address] BUN/CRE 21.1 RATIO High 10-20 [facility] Comment on above: Order Comment: Order Date: 12/27/24Order Info: [id number]- - CMPOrder Info: [id number] - LIPIDOrder Info: 3 - TSHOrder Info: [id number] - IBCOrder Info: [id number] - MEG Performed By: #### L 501.9985, L501.9520, L503.6550, L500.4050, L100.0500, L503.6030, L500.4100 ####[facility] [address] [place], [address] Calcium [Mass/Vol] 9.2 mg/dL Normal 7.6-11.0 [facility] Comment on above: Order Comment: Order Date: 12/27/24Order Info: [id number] - CMPOrder Info: [id number] - LIPIDOrder Info: 6-3 - TSHOrder Info: [id number] - IBCOrder Info: [id number] - MEG Performed By: #### L 501.9985, L501.9520, L503.6550, L500.4050, L100.0500, L503.6030, L500.4100 ####[facility] [address] [place], [address] Chloride [Moles/Vol] 101 mmol/L Normal 98-108 [facility] Comment on above: Order Comment: Order Date: 12/27/24Order Info: 86-1 - CMPOrder Info: [id number] - LIPIDOrder Info: [id number] - TSHOrder Info: [id number] - IBCOrder Info: [id number] - MEG Performed By: #### L 501.9985, L501.9520, L503.6550, L500.4050, L100.0500, L503.6030, L500.4100 ####[facility] [address] [place], [address] CO2 [Moles/Vol] 26.0 mmol/L Normal 21.0-32.0 [facility] Comment on above: Order Comment: Order Date: 12/27/24Order Info: [id number]- - CMPOrder Info: [id number] - LIPIDOrder Info: 3 - TSHOrder Info: [id number] - IBCOrder Info: [id number] - MEG Performed By: #### L 501.9985, L501.9520, L503.6550, L500.4050, L100.0500, L503.6030, L500.4100 ####[facility] [address] [place], [place], [phone] Creatinine [Mass/Vol] 0.42 mg/dL Low 0.70-1.20 [facility] Comment on above: Order Comment: Order Date: 12/27/24Order Info: [id number] - CMPOrder Info: [id number] - LIPIDOrder Info: 3 - TSHOrder Info: [id number] - IBCOrder Info: [id number] - MEG Performed By: #### L 501.9985, L501.9520, L503.6550, L500.4050, L100.0500, L503.6030, L500.4100 ####[facility] [address] [place], [address] GAP 12 Normal 5-15 [facility] Comment on above: Order Comment: Order Date: 12/27/24Order Info: [id number]- - CMPOrder Info: - LIPIDOrder Info: [id number] - TSHOrder Info: [id number] - IBCOrder Info: [id number] - MEG Performed By: #### L 501.9985, L501.9520, L503.6550, L500.4050, L100.0500, L503.6030, L500.4100 ####[facility] [address] [place], [place], [address] GFR/1.73 sq M.predicted among non-blacks MDRD (S/P/Bld) [Vol rate/Area] 103 mL/min/{1.73_m2} Normal >60 [facility] Comment on above: Order Comment: Order Date: 12/27/24Order Info: [id number] - CMPOrder Info: - LIPIDOrder Info: [id number] - TSHOrder Info: - IBCOrder Info: [id number] - MEG Result Comment: mL/m in/1.73m2 CKD-EPI Creatinine Equation (2020) Performed By: #### L 501.9985, L501.9520, L503.6550, L500.4050, L100.0500, L503.6030, L500.4100 ####[facility] [address] [place], [place], [phone] Globulin (S) [Mass/Vol] 2.6 g/dL Normal 2.2-4.2 [facility] Comment on above: Order Comment: Order Date: 12/27/24Order Info: [id number] - CMPOrder Info: - LIPIDOrder Info: [id number] - TSHOrder Info: [id number] - IBCOrder Info: [id number] - MEG Performed By: #### L 501.9985, L501.9520, L503.6550, L500.4050, L100.0500, L503.6030, L500.4100 ####[facility] [address] [place], [address] Glucose [Mass/Vol] 85 mg/dL Normal 70-99 [facility] Comment on above: Order Comment: Order Date: 12/27/24Order Info: [id number] - CMPOrder Info: [id number] - LIPIDOrder Info: 6-3 - TSHOrder Info: [id number] - IBCOrder Info: [id number] - MEG Performed By: #### L 501.9985, L501.9520, L503.6550, L500.4050, L100.0500, L503.6030, L500.4100 ####[facility] [address] [place], [address] Potassium [Moles/Vol] 3.7 mmol/L Normal 3.3-5.1 [facility] Comment on above: Order Comment: Order Date: 12/27/24Order Info: [id number]- - CMPOrder Info: [id number] - LIPIDOrder Info: 3 - TSHOrder Info: [id number] - IBCOrder Info: 4 - MEG Performed By: #### L 501.9985, L501.9520, L503.6550, L500.4050, L100.0500, L503.6030, L500.4100 ####[facility] [address] [place], [address] Sodium [Moles/Vol] 139 mmol/L Normal 133-145 [facility] Comment on above: Order Comment: Order Date: 12/27/24Order Info: [id number]- - CMPOrder Info: [id number] - LIPIDOrder Info: 3 - TSHOrder Info: [id number] - IBCOrder Info: [id number] - MEG Performed By: #### L 501.9985, L501.9520, L503.6550, L500.4050, L100.0500, L503.6030, L500.4100 ####[facility] [address] [place], [place], [address] T PROT 6.8 g/dL Normal 5.9-8.4 [facility] Comment on above: Order Comment: Order Date: 12/27/24Order Info: [id number] - CMPOrder Info: [id number] - LIPIDOrder Info: [id number] - TSHOrder Info: [id number] - IBCOrder Info: [id number] - MEG Performed By: #### L 501.9985, L501.9520, L503.6550, L500.4050, L100.0500, L503.6030, L500.4100 ####[facility] [address] [place], [place], [address] Urea nitrogen [Mass/Vol] 9 mg/dL Normal 4-19 [facility] Comment on above: Order Comment: Order Date: 12/27/24Order Info: [id number]- - CMPOrder Info: [id number] - LIPIDOrder Info: [id number] - TSHOrder Info: [id number] - IBCOrder Info: [id number] - MEG Performed By: #### L 501.9985, L501.9520, L503.6550, L500.4050, L100.0500, L503.6030, L500.4100 ####[facility] [address] [place], [place], [address] Eosinophil percentageOrdered By: Ye Hoffman on 12-27-2024 Eosinophils/100 WBC (Bld) 1.0 % 0-5 [facility] Erythrocyte distribution wid th ratioOrdered By: Ye Hoffman on 12-27-2024 Erythrocyte distribution width (RBC) [Ratio] 13.1 % 11.6-14.6 [facility] Erythrocyte distribution wid th standard deviationOrdered By: Ye Hoffman on 12-27-2024 Erythrocyte distribution width (RBC) [Ratio] 46.8 fl High 35.1-43.9 [facility] Ferritinon 12-27-2024 Ferritin [Mass/Vol] 30 ng/mL Normal 22-378 [facility] Comment on above: Order Comment: Order Date: 12/27/24Order Info: [id number] - CMPOrder Info: [id number] - LIPIDOrder Info: [id number] - TSHOrder Info: [id number] - IBCOrder Info: [id number] - MEG Performed By: #### L 501.9985, L501.9520, L503.6550, L500.4050, L100.0500, L503.6030, L500.4100 ####[facility] [address] [place], [address] Glomerular filtration rate ( GFR) estimation/1.73 sq m using serum, plasma, or whole bOrdered By: Ye Hoffman on 12-27-2024 GFR/1.73 sq M.predicted among non-blacks MDRD (S/P/Bld) [Vol rate/Area] 103 mL/min/{1.73_m2} >60 [facility] Comment on above: mL/min/1.73m2 CKD-EP I Creatinine Equation (2020) Hematocrit Auto (Bld) [Volum e fraction]Ordered By: Ye Hoffman on 12-27-2024 Hematocrit (Bld) [Volume fraction] 38.0 % 37-47 [facility] Hemoglobin A1con 12-27-2024 HbA1c (Bld) [Mass fraction] 4.7 % Normal <=5.6 [facility] Comment on above: Order Comment: Order Date: 12/27/24Order Info: [id number] - A1C Result Comment: Norm al < 5.7 % Prediabetic 5.7 - 6.4 % Diabetic >or= 6.5 % Please note range changes. Performed By: #### L 501.9985, L501.9520, L503.6550, L500.4050, L100.0500, L503.6030, L500.4100 ####[facility] [address] [place], [address] Hemoglobin A1c percentageOrd ered By: Ye Hoffman on 12-27-2024 HbA1c (Bld) [Mass fraction] 4.7 % <5.7 [facility] Comment on above: Normal < 5.7 % Predi abetic 5.7 - 6.4 % Diabetic >or= 6.5 % Please note range changes. Hemoglobin measurementOrdere d By: Ye Hoffman on 12-27-2024 Hemoglobin (Bld) [Mass/Vol] 12.7 g/dL 12.0-15.0 [facility] Immature granulocytes/100 WB C Auto (Bld)Ordered By: Ye Hoffman on 12-27-2024 Immature granulocytes/100 WBC (Bld) 0.400 % 0.0-0.9 [facility] Comment on above: IG% - Immature Granu locytes (promyelocytes, myelocytes and metamyelocytes) > 1% indicates that a LEFT SHIFT is Present. Iron measurement (mass/mass) Ordered By: Ye Hoffman on 12-27-2024 Iron (Unsp spec) [Mass/Mass] 68 ug/dL 50-170 [facility] Iron+Iron Binding Capacityon 12-27-2024 Iron [Mass/Vol] 68 ug/dL Normal 50-170 [facility] Comment on above: Order Comment: Order Date: 12/27/24Order Info: [id number] - CMPOrder Info: [id number] - LIPIDOrder Info: [id number] - TSHOrder Info: [id number] - IBCOrder Info: [id number] - MEG Performed By: #### L [id number], L501.9520, L503.6550, L500.4050, L100.0500, L503.6030, L500.4100 ####[facility] [address] [place], [place], [id number] IRON SATURATION 28.0 Normal 13-59 [facility] Comment on above: Order Comment: Order Date: 12/27/24Order Info: [id number] - CMPOrder Info: [id number] - LIPIDOrder Info: [id number] - TSHOrder Info: [id number] - IBCOrder Info: [id number] - MEG Performed By: #### L [id number], L501.9520, L503.6550, L500.4050, L100.0500, L503.6030, L500.4100 ####[facility] [address] [place], [address] TIBC 245 ug/dL Low 250-450 [facility] Comment on above: Order Comment: Order Date: 12/27/24Order Info: [id number] - CMPOrder Info: [id number] - LIPIDOrder Info: [id number] - TSHOrder Info: [id number] - IBCOrder Info: [id number] - MEG Performed By: #### L [id number], [id number], L503.6550, L500.4050, L100.0500, L503.6030, L500.4100 ####[facility] [address] [place], [address] UIBC 177 ug/dL Low 228-428 [facility] Comment on above: Order Comment: Order Date: 12/27/24Order Info: [id number] - CMPOrder Info: [id number] - LIPIDOrder Info: [id number] - TSHOrder Info: [id number] - IBCOrder Info: [id number] - MEG Performed By: #### L 501.9985, [id number], L503.6550, L500.4050, L100.0500, L503.6030, L500.4100 ####[facility] [address] [place], [place], [address] LDL calc ser/plasOrdered By: Ye Hoffman on 12-27-2024 Cholesterol in LDL [Mass/Vol] 77 mg/dL [facility] Comment on above: Blvoykvvfz=389-346 m g/dL & Higher Ldce=103 mg/dL or greaterFriedwald Equation for LDL-C Laboratory - Chemistry and C hemistry - challengeOrdered By: Ye Hoffman on 12-27-2024 AST [Catalytic activity/Vol] 21 U/L <32 [facility] Lipid Profileon 12-27-2024 CHOL:HDL 2.05 Normal [facility] Comment on above: Order Comment: Order Date: 12/27/24Order Info: [id number] - CMPOrder Info: [id number] - LIPIDOrder Info: [id number] - TSHOrder Info: [id number] - IBCOrder Info: [id number] - MEG Performed By: #### L 501.9985, [id number], L503.6550, L500.4050, L100.0500, L503.6030, L500.4100 ####[facility] [address] [place], [address] Cholesterol [Mass/Vol] 170 mg/dL Normal <=200 [facility] Comment on above: Order Comment: Order Date: 12/27/24Order Info: [id number] - CMPOrder Info: [id number] - LIPIDOrder Info: [id number] - TSHOrder Info: [id number] - IBCOrder Info: [id number] - MEG Result Comment: Chol esterol level, Desirable <200 mg/dLBorderline high cholesterol 200-239 mg/dLHigh cholesterol >=240 mg/dLRecommendations of the NCEP Adult Treatment Panel for thefollowing risk-cutoff thresholds for the [place] [facility]. Performed By: #### L 501.9985, L501.9520, L503.6550, L500.4050, L100.0500, L503.6030, L500.4100 ####[facility] [address] [place], [address] Cholesterol in HDL [Mass/Vol] 83 mg/dL Normal [facility] Comment on above: Order Comment: Order Date: 12/27/24Order Info: [id number] - CMPOrder Info: [id number] - LIPIDOrder Info: [id number] - TSHOrder Info: [id number] - IBCOrder Info: [id number] - MEG Result Comment: Sangeeta onal Cholesterol Education Program (NCEP) guidelines:<40 mg/dL: Low HDL-cholesterol (major risk factor for CHD)>= 60 mg/dL: High HDL-cholesterol (negative risk factor forCHD)HDL-cholesterol is affected by a number of factors, e.g.smoking, exercise, hormones, sex and age. Performed By: #### L 501.9985, L501.9520, L503.6550, L500.4050, L100.0500, L503.6030, L500.4100 ####[facility] [address] [place], [address] Cholesterol in LDL [Mass/Vol] 77 mg/dL Normal [facility] Comment on above: Order Comment: Order Date: 12/27/24Order Info: [id number] - CMPOrder Info: [id number] - LIPIDOrder Info: [id number] - TSHOrder Info: [id number] - IBCOrder Info: [id number] - MEG Result Comment: Bord ccucxx=140-013 mg/dL Higher Nban=561 mg/dL or greaterFriedwald Equation for LDL-C Performed By: #### L 501.9985, L501.9520, L503.6550, L500.4050, L100.0500, L503.6030, L500.4100 ####[facility] [address] [place], [address] Cholesterol in VLDL [Mass/Vol] 10 mg/dL Normal 5-40 [facility] Comment on above: Order Comment: Order Date: 12/27/24Order Info: [id number] - CMPOrder Info: [id number] - LIPIDOrder Info: [id number] - TSHOrder Info: [id number] - IBCOrder Info: [id number] - MEG Performed By: #### L 501.9985, [id number], L503.6550, L500.4050, L100.0500, L503.6030, L500.4100 ####[facility] [address] [place], [address] Triglyceride [Mass/Vol] 51 mg/dL Normal [facility] Comment on above: Order Comment: Order Date: 12/27/24Order Info: [id number] - CMPOrder Info: [id number] - LIPIDOrder Info: [id number] - TSHOrder Info: [id number] - IBCOrder Info: [id number] - MEG Result Comment: The drugs N-Acetylcysteine and Metamizole may falselydepress this assay.Normal range: <150 mg/dLBorderline High: 150-199 mg/dLHigh: 200-499 mg/dLVery High: >500 mg/dL Performed By: #### L 501.9985, L501.9520, L503.6550, L500.4050, L100.0500, L503.6030, L500.4100 ####[facility] [address] [place], [address] MCV (mean corpuscular volume ) determinationOrdered By: Ye Hoffman on 12-27-2024 MCV (RBC) [Entitic vol] 98.2 fL 81-99 [facility] Mean corpuscular hemoglobin (MCH) determinationOrdered By: Ye Hoffman on 12-27-2024 MCH (RBC) [Entitic mass] 32.8 pg High 27.0-32.0 [facility] Mean corpuscular hemoglobin concentration (MCHC) determinationOrdered By: Ye Hoffman on 12-27-2024 MCHC (RBC) [Mass/Vol] 33.4 g/dL 32-36 [facility] Mean platelet volume determi nationOrdered By: Ye Hoffman on 12-27-2024 Platelet mean volume (Bld) [Entitic vol] 10.7 fL 6.2-12.0 [facility] Monocyte percentageOrdered B y: Ye Hoffman on 12-27-2024 Monocytes/100 WBC (Bld) 4.9 % 0-10 [facility] Neutrophil percentageOrdered By: Ye Hoffman on 12-27-2024 Neutrophils/100 WBC (Bld) 86.7 % High 47-70 [facility] No Panel InformationOrdered By: Ye Hoffman on 12-27-2024 Unsaturated Iron Binding Capacity 177 ug/dL Low 228-428 [facility] Nucleated red blood cell per centageOrdered By: Ye Hoffman on 12-27-2024 Nucleated RBC/100 WBC (Bld) [Ratio] 0 % 0-5 [facility] Platelet countOrdered By: Juliocesar Hoffman on 12-27-2024 Platelets (Bld) [#/Vol] 184 10*3/uL 150-450 [facility] Potassium measurement (mass/ volume)Ordered By: Ye Hoffman on 12-27-2024 Potassium (Unsp spec) [Mass/Vol] 3.7 mmol/L 3.3-5.1 [facility] RBC Auto (Bld) [#/Vol]Ordere d By: Ye Hoffman on 12-27-2024 RBC (Bld) [#/Vol] 3.87 10*6/uL Low 4.2-5.4 [facility] Screening total cholesterol/ high density lipoprotein (HDL) cholesterol ratioOrdered By: Ye Hoffman on 12-27-2024 Cholesterol.total/Cholest jamie in HDL [Mass ratio] 2.05 {ratio} [facility] Serum creatinine measurement (mass/volume)Ordered By: Ye Hoffman on 12-27-2024 Creatinine [Mass/Vol] 0.42 mg/dL Low 0.70-1.20 [facility] Serum globulin measurementOr dered By: Ye Hoffman on 12-27-2024 Globulin (S) [Mass/Vol] 2.6 g/dL 2.2-4.2 [facility] Serum glucose measurement (m ass/volume)Ordered By: Ye Hoffman on 12-27-2024 Glucose [Mass/Vol] 85 mg/dL 70-99 [facility] Serum or plasma alanine driver otransferase (ALT) measurementOrdered By: Ye Hoffman on 12-27-2024 ALT [Catalytic activity/Vol] 12 U/L <35 [facility] Serum or plasma albumin cedric urement (mass/volume)Ordered By: Ye Hoffman on 12-27-2024 Albumin [Mass/Vol] 4.2 g/dL 3.4-4.8 [facility] Serum or plasma albumin/glob ulin mass ratioOrdered By: Ye Hoffman on 12-27-2024 Albumin/Globulin [Mass ratio] 1.6 {ratio} 0.9-2.4 [facility] Serum or plasma alkaline judy sphatase measurementOrdered By: Ye Hoffman on 12-27-2024 ALP [Catalytic activity/Vol] 48 U/L 35-104 [facility] Serum or plasma calcium cedric urement (mass/volume)Ordered By: Ye Hoffman on 12-27-2024 Calcium [Mass/Vol] 9.2 mg/dL 7.6-11.0 [facility] Serum or plasma cholesterol in HDL measurement (mass/volume)Ordered By: Ye Hoffman on 12-27-2024 Cholesterol in HDL [Mass/Vol] 83 mg/dL >40 [facility] Comment on above: National Cholesterol Education Program (NCEP) guidelines:<40 mg/dL: Low HDL-cholesterol (major risk factor for CHD)>= 60 mg/dL: High HDL-cholesterol (negative risk factor for CHD)HDL-cholesterol is affected by a number of factors, e.g. smoking, exercise, hormones, sex and age. Serum or plasma cholesterol measurement (mass/volume)Ordered By: Ye Hoffman on 12-27-2024 Cholesterol [Mass/Vol] 170 mg/dL <201 [facility] Comment on above: Cholesterol level, D esirable <200 mg/dLBorderline high cholesterol 200-239 mg/dLHigh cholesterol >=240 mg/dLRecommendations of the NCEP Adult Treatment Panel for the following risk-cutoff thresholds for the [place] population. Serum or plasma ferritin pineda surement (mass/volume)Ordered By: Ye Hoffman on 12-27-2024 Ferritin [Mass/Vol] 30 ng/mL 22-378 [facility] Serum or plasma iron saturat ion measurement (mass fraction)Ordered By: Ye Hoffman on 12-27-2024 Iron saturation [Mass fraction] 28.0 % 13-59 [facility] Serum or plasma urea nitroge n measurement (mass/volume)Ordered By: Ye Hoffman on 12-27-2024 Urea nitrogen [Mass/Vol] 9 mg/dL 4-19 [facility] Sodium levelOrdered By: Don Hoffman on 12-27-2024 Sodium [Moles/Vol] 139 mmol/L 133-145 [facility] TSH DL <= 0.005 mIU/L QnOrde red By: Ye Hoffman on 12-27-2024 TSH Qn 2.020 uIU/mL 0.300-4.200 [facility] Thyroid Stim Hormone (TSH)on 12-27-2024 TSH 2.020 uIU/mL Normal 0.300-4.200 [facility] Comment on above: Order Comment: Order Date: 12/27/24Order Info: [id number] - CMPOrder Info: [id number] - LIPIDOrder Info: [id number] - TSHOrder Info: [id number] - IBCOrder Info: [id number] - MEG Performed By: #### L 501.9985, L501.9520, L503.6550, L500.4050, L100.0500, L503.6030, L500.4100 ####[facility] [address] [place], [address] Total proteinOrdered By: Nona Hoffman on 12-27-2024 Protein [Mass/Vol] 6.8 g/dL 5.9-8.4 [facility] Triglycerides measurementOrd ered By: Ye Hoffman on 12-27-2024 Triglyceride [Mass/Vol] 51 mg/dL <199 [facility] Comment on above: The drugs N-Acetylcy steine and Metamizole may falsely depress this assay. Normal range: <150 mg/dLBorderline High: 150-199 mg/dLHigh: 200-499 mg/dLVery High: >500 mg/dL White blood cell (WBC) count Ordered By: Ye Hoffman on 12-27-2024 WBC (Bld) [#/Vol] 8.4 10*3/uL 4.4-11.0 [facility] Absolute lymphocyte countOrd ered By: Sukumar Velazquez on 07-21-2024 Lymphocytes Auto (Unsp spec) [#/Vol] 1.05 10*3/uL 0.83-4.51 [facility] Absolute neutrophil countOrd ered By: Sukumar Velazquez on 07-21-2024 Neutrophils (Bld) [#/Vol] 1.8 10*3/uL Low 2.0-7.7 [facility] Anion gap in Serum or Plasma Ordered By: Sukumar Velazquez on 07-21-2024 Anion gap [Moles/Vol] 9 mmol/L 5-15 [facility] Automated lymphocyte count a s percentage of total leukocytesOrdered By: Sukumar Velazquez on 07-21-2024 Lymphocytes/100 WBC Auto (Unsp spec) 28.5 % 19-41 [facility] BUN/creatinine ratioOrdered By: Mayajeffrydeedeesoumya Stauffercobyissa on 07-21-2024 Urea nitrogen/Creatinine [Mass ratio] 47.2 mg/mg High 10-20 [facility] Basophil percentageOrdered B y: Seradeedeesoumya Stauffercobyissa on 07-21-2024 Basophils/100 WBC (Bld) 0.5 % 0-1 [facility] Carbon dioxide, total [Moles /volume] in Central venous bloodOrdered By: jeffrydeedeesoumya Stauffercobyissa on 07-21-2024 CO2 [Moles/Vol] 26.1 mmol/L 21.0-32.0 [facility] Chloride assayOrdered By: Maya bridgersoumya Stauffercobyissa on 07-21-2024 Chloride [Moles/Vol] 102 mmol/L 98-108 [facility] Eosinophil percentageOrdered By: Mayajeffrynerstrandsoumya Stauffercobyissa on 07-21-2024 Eosinophils/100 WBC (Bld) 7.6 % High 0-5 [facility] Erythrocyte distribution wid th ratioOrdered By: jeffrynerstrandsoumya Ehcobyissa on 07-21-2024 Erythrocyte distribution width (RBC) [Ratio] 12.1 % 11.6-14.6 [facility] Erythrocyte distribution wid th standard deviationOrdered By: [facility]mya Ehcobyissa on 07-21-2024 Erythrocyte distribution width (RBC) [Ratio] 43.4 fl 35.1-43.9 [facility] Glomerular filtration rate ( GFR) estimation/1.73 sq m using serum, plasma, or whole bOrdered By: Sukumar Velazquez on 07-21-2024 GFR/1.73 sq M.predicted among non-blacks MDRD (S/P/Bld) [Vol rate/Area] 99 mL/min/{1.73_m2} >60 [facility] Comment on above: mL/min/1.73m2 CKD-EP I Creatinine Equation (2020) Hematocrit Auto (Bld) [Volum e fraction]Ordered By: Sukumar Velazquez on 07-21-2024 Hematocrit (Bld) [Volume fraction] 36.2 % Low 37-47 [facility] Hemoglobin measurementOrdere d By: Sukumar Velazquez on 07-21-2024 Hemoglobin (Bld) [Mass/Vol] 12.1 g/dL 12.0-15.0 [facility] Immature granulocytes/100 WB C Auto (Bld)Ordered By: Sukumar Velazquez on 07-21-2024 Immature granulocytes/100 WBC (Bld) 0.300 % 0.0-0.9 [facility] Comment on above: IG% - Immature Granu locytes (promyelocytes, myelocytes and metamyelocytes) > 1% indicates that a LEFT SHIFT is Present. MCV (mean corpuscular volume ) determinationOrdered By: Sukumar Velazquez on 07-21-2024 MCV (RBC) [Entitic vol] 96.8 fL 81-99 [facility] Mean corpuscular hemoglobin (MCH) determinationOrdered By: Seranerstrandsoumya Velazquez on 07-21-2024 MCH (RBC) [Entitic mass] 32.4 pg High 27.0-32.0 [facility] Mean corpuscular hemoglobin concentration (MCHC) determinationOrdered By: jeffrynerstrandsoumya Velazquez on 07-21-2024 MCHC (RBC) [Mass/Vol] 33.4 g/dL 32-36 [facility] Mean platelet volume determi nationOrdered By: Sukumar Velazquez on 07-21-2024 Platelet mean volume (Bld) [Entitic vol] 10.6 fL 6.2-12.0 [facility] Monocyte percentageOrdered B y: Sukumar Velazquez on 07-21-2024 Monocytes/100 WBC (Bld) 13.3 % High 0-10 [facility] Neutrophil percentageOrdered By: rosie Velazquez on 07-21-2024 Neutrophils/100 WBC (Bld) 49.8 % 47-70 [facility] Nucleated red blood cell per centageOrdered By: Sukumar Velazquez on 07-21-2024 Nucleated RBC/100 WBC (Bld) [Ratio] 0 % 0-5 [facility] Platelet countOrdered By: Maya Velazquez on 07-21-2024 Platelets (Bld) [#/Vol] 195 10*3/uL 150-450 [facility] Potassium measurement (mass/ volume)Ordered By: Sukumar Velazquez on 07-21-2024 Potassium (Unsp spec) [Mass/Vol] 4.4 mmol/L 3.3-5.1 [facility] RBC Auto (Bld) [#/Vol]Ordere d By: Sukumar Velazquez on 07-21-2024 RBC (Bld) [#/Vol] 3.74 10*6/uL Low 4.2-5.4 [facility] Serum creatinine measurement (mass/volume)Ordered By: Sukumar Velazquez on 07-21-2024 Creatinine [Mass/Vol] 0.50 mg/dL Low 0.70-1.20 [facility] Serum glucose measurement (m ass/volume)Ordered By: Sukumar Velazquez on 07-21-2024 Glucose [Mass/Vol] 96 mg/dL 70-99 [facility] Serum or plasma calcium cedric urement (mass/volume)Ordered By: Sukumar Velazquez on 07-21-2024 Calcium [Mass/Vol] 9.2 mg/dL 7.6-11.0 [facility] Serum or plasma urea nitroge n measurement (mass/volume)Ordered By: Sukumar Velazquez on 07-21-2024 Urea nitrogen [Mass/Vol] 24 mg/dL High 4-19 [facility] Sodium levelOrdered By: Sera Velazquez on 07-21-2024 Sodium [Moles/Vol] 137 mmol/L 133-145 [facility] White blood cell (WBC) count Ordered By: Sukumar Velazquez on 07-21-2024 WBC (Bld) [#/Vol] 3.7 10*3/uL Low 4.4-11.0 [facility] Wound Ctr History AND Physic bret 07-18-2024 Wound Ctr History & Physical Normal [facility] Absolute lymphocyte countOrd ered By: Sukumar Velazquez on 07-14-2024 Lymphocytes Auto (Unsp spec) [#/Vol] 0.89 10*3/uL 0.83-4.51 [facility] Absolute neutrophil countOrd ered By: Sukumar eVlazquez on 07-14-2024 Neutrophils (Bld) [#/Vol] 2.0 10*3/uL 2.0-7.7 [facility] Anion gap in Serum or Plasma Ordered By: Sukumar Velazquez on 07-14-2024 Anion gap [Moles/Vol] 8 mmol/L 5-15 [facility] Automated lymphocyte count a s percentage of total leukocytesOrdered By: Sukumar Velazquez on 07-14-2024 Lymphocytes/100 WBC Auto (Unsp spec) 24.7 % 19-41 [facility] BUN/creatinine ratioOrdered By: Sukumar Velazquez on 07-14-2024 Urea nitrogen/Creatinine [Mass ratio] 65.0 mg/mg High 10-20 [facility] Basophil percentageOrdered B y: Sukumar Velazquez on 07-14-2024 Basophils/100 WBC (Bld) 0.3 % 0-1 [facility] Carbon dioxide, total [Moles /volume] in Central venous bloodOrdered By: Sukumar Velazquez on 07-14-2024 CO2 [Moles/Vol] 27.5 mmol/L 21.0-32.0 [facility] Chloride assayOrdered By: Maya Velazquez on 07-14-2024 Chloride [Moles/Vol] 103 mmol/L 98-108 [facility] Eosinophil percentageOrdered By: Sukumar Velazquez on 07-14-2024 Eosinophils/100 WBC (Bld) 6.4 % High 0-5 [facility] Erythrocyte distribution wid th ratioOrdered By: Sukumar Velazquez on 07-14-2024 Erythrocyte distribution width (RBC) [Ratio] 12.5 % 11.6-14.6 [facility] Erythrocyte distribution wid th standard deviationOrdered By: rosie Velazquez on 07-14-2024 Erythrocyte distribution width (RBC) [Ratio] 44.9 fl High 35.1-43.9 [facility] Glomerular filtration rate ( GFR) estimation/1.73 sq m using serum, plasma, or whole bOrdered By: Sukumar Velazquez on 07-14-2024 GFR/1.73 sq M.predicted among non-blacks MDRD (S/P/Bld) [Vol rate/Area] 100 mL/min/{1.73_m2} >60 [facility] Comment on above: mL/min/1.73m2 CKD-EP I Creatinine Equation (2020) Hematocrit Auto (Bld) [Volum e fraction]Ordered By: Sukumar Velazquez on 07-14-2024 Hematocrit (Bld) [Volume fraction] 36.6 % Low 37-47 [facility] Hemoglobin measurementOrdere d By: Sukumar Velazquez on 07-14-2024 Hemoglobin (Bld) [Mass/Vol] 12.0 g/dL 12.0-15.0 [facility] Immature granulocytes/100 WB C Auto (Bld)Ordered By: Sukumar Velazquez on 07-14-2024 Immature granulocytes/100 WBC (Bld) 0.300 % 0.0-0.9 [facility] Comment on above: IG% - Immature Granu locytes (promyelocytes, myelocytes and metamyelocytes) > 1% indicates that a LEFT SHIFT is Present. MCV (mean corpuscular volume ) determinationOrdered By: Sukumar Velazquez on 07-14-2024 MCV (RBC) [Entitic vol] 97.9 fL 81-99 [facility] Mean corpuscular hemoglobin (MCH) determinationOrdered By: Sukumar Velazquez on 07-14-2024 MCH (RBC) [Entitic mass] 32.1 pg High 27.0-32.0 [facility] Mean corpuscular hemoglobin concentration (MCHC) determinationOrdered By: Sukumar Velazquez on 07-14-2024 MCHC (RBC) [Mass/Vol] 32.8 g/dL 32-36 [facility] Mean platelet volume determi nationOrdered By: Sukumar Velazquez on 07-14-2024 Platelet mean volume (Bld) [Entitic vol] 10.6 fL 6.2-12.0 [facility] Monocyte percentageOrdered B y: Sukumar Velazquez on 07-14-2024 Monocytes/100 WBC (Bld) 13.6 % High 0-10 [facility] Neutrophil percentageOrdered By: Sukumar Velazquez on 07-14-2024 Neutrophils/100 WBC (Bld) 54.7 % 47-70 [facility] Nucleated red blood cell per centageOrdered By: Mayajeffrybela Ehcobyissa on 07-14-2024 Nucleated RBC/100 WBC (Bld) [Ratio] 0 % 0-5 [facility] Platelet countOrdered By: Maya bridgersoumya Stauffercobyissa on 07-14-2024 Platelets (Bld) [#/Vol] 207 10*3/uL 150-450 [facility] Potassium measurement (mass/ volume)Ordered By: Sukumar Velazquez on 07-14-2024 Potassium (Unsp spec) [Mass/Vol] 4.3 mmol/L 3.3-5.1 [facility] RBC Auto (Bld) [#/Vol]Ordere d By: Dennisesoumya Stauffercobyissa on 07-14-2024 RBC (Bld) [#/Vol] 3.74 10*6/uL Low 4.2-5.4 [facility] Serum creatinine measurement (mass/volume)Ordered By: Sukumar Stauffercobyissa on 07-14-2024 Creatinine [Mass/Vol] 0.49 mg/dL Low 0.70-1.20 [facility] Serum glucose measurement (m ass/volume)Ordered By: Mayarosie Velazquez on 07-14-2024 Glucose [Mass/Vol] 98 mg/dL 70-99 [facility] Serum or plasma calcium cedric urement (mass/volume)Ordered By: Sukumar Stauffercobyissa on 07-14-2024 Calcium [Mass/Vol] 9.3 mg/dL 7.6-11.0 [facility] Serum or plasma urea nitroge n measurement (mass/volume)Ordered By: Sukumar Velazquez on 07-14-2024 Urea nitrogen [Mass/Vol] 32 mg/dL High 4-19 [facility] Sodium levelOrdered By: Mayajeffry bela Caroline on 07-14-2024 Sodium [Moles/Vol] 139 mmol/L 133-145 [facility] White blood cell (WBC) count Ordered By: Sukumar Velazquez 07-14-2024 WBC (Bld) [#/Vol] 3.6 10*3/uL Low 4.4-11.0 [facility] Dexa Bone Density Studyon Dexa Bone Density Study Normal [facility] SCRN MAMM (CAD)W/JD BILATo n 07-12-2024 SCRN MAMM (CAD)W/JD BILAT Normal [facility] Wound Ctr History AND Physic bret 07-11-2024 Wound Ctr History & Physical Normal [facility]tr History & Physical Normal [facility] Absolute lymphocyte countOrd ered By: Sukumar Velazquez on 07-07-2024 Lymphocytes Auto (Unsp spec) [#/Vol] 0.95 10*3/uL 0.83-4.51 [facility] Absolute neutrophil countOrd ered By: Sukumar Velazquez on 07-07-2024 Neutrophils (Bld) [#/Vol] 3.1 10*3/uL 2.0-7.7 [facility] Anion gap in Serum or Plasma Ordered By: Sukumar Velazquez on 07-07-2024 Anion gap [Moles/Vol] 9 mmol/L 5-15 [facility] Automated lymphocyte count a s percentage of total leukocytesOrdered By: Sukumar Velazquez on 07-07-2024 Lymphocytes/100 WBC Auto (Unsp spec) 19.8 % 19-41 [facility] BUN/creatinine ratioOrdered By: Sukumar Velazquez on 07-07-2024 Urea nitrogen/Creatinine [Mass ratio] 58.3 mg/mg High 10-20 [facility] Basophil percentageOrdered B y: Sukumar Velazquez on 07-07-2024 Basophils/100 WBC (Bld) 0.2 % 0-1 [facility] Carbon dioxide, total [Moles /volume] in Central venous bloodOrdered By: Sukumar Velazquez on 07-07-2024 CO2 [Moles/Vol] 28.2 mmol/L 21.0-32.0 [facility] Chloride assayOrdered By: Maya Velazquez on 07-07-2024 Chloride [Moles/Vol] 102 mmol/L 98-108 [facility] Eosinophil percentageOrdered By: Sukumar Velazquez on 07-07-2024 Eosinophils/100 WBC (Bld) 5.2 % High 0-5 [facility] Erythrocyte distribution wid th ratioOrdered By: Sukumar Velazquez on 07-07-2024 Erythrocyte distribution width (RBC) [Ratio] 12.3 % 11.6-14.6 [facility] Erythrocyte distribution wid th standard deviationOrdered By: Sukumar Velazquez on 07-07-2024 Erythrocyte distribution width (RBC) [Ratio] 44.6 fl High 35.1-43.9 [facility] Glomerular filtration rate ( GFR) estimation/1.73 sq m using serum, plasma, or whole bOrdered By: Seranerstrandsoumya Velazquez on 07-07-2024 GFR/1.73 sq M.predicted among non-blacks MDRD (S/P/Bld) [Vol rate/Area] 99 mL/min/{1.73_m2} >60 [facility] Comment on above: mL/min/1.73m2 CKD-EP I Creatinine Equation (2020) Hematocrit Auto (Bld) [Volum e fraction]Ordered By: Sukumar Velazquez on 07-07-2024 Hematocrit (Bld) [Volume fraction] 36.4 % Low 37-47 [facility] Hemoglobin measurementOrdere d By: Sukumar Velazquez on 07-07-2024 Hemoglobin (Bld) [Mass/Vol] 12.0 g/dL 12.0-15.0 [facility] Immature granulocytes/100 WB C Auto (Bld)Ordered By: Sukumar Velazquez on 07-07-2024 Immature granulocytes/100 WBC (Bld) 0.200 % 0.0-0.9 [facility] Comment on above: IG% - Immature Granu locytes (promyelocytes, myelocytes and metamyelocytes) > 1% indicates that a LEFT SHIFT is Present. MCV (mean corpuscular volume ) determinationOrdered By: Sukumar Velazquez on 07-07-2024 MCV (RBC) [Entitic vol] 98.1 fL 81-99 [facility] Mean corpuscular hemoglobin (MCH) determinationOrdered By: Sukumar Velazquez 07-07-2024 MCH (RBC) [Entitic mass] 32.3 pg High 27.0-32.0 [facility] Mean corpuscular hemoglobin concentration (MCHC) determinationOrdered By: Sukumar Velazquez on 07-07-2024 MCHC (RBC) [Mass/Vol] 33.0 g/dL 32-36 [facility] Mean platelet volume determi nationOrdered By: Sukumar Velazquez on 07-07-2024 Platelet mean volume (Bld) [Entitic vol] 10.7 fL 6.2-12.0 [facility] Monocyte percentageOrdered B y: Sukumar Velazquez on 07-07-2024 Monocytes/100 WBC (Bld) 10.4 % High 0-10 [facility] Neutrophil percentageOrdered By: Sukumar Velazquez on 07-07-2024 Neutrophils/100 WBC (Bld) 64.2 % 47-70 [facility] Nucleated red blood cell per centageOrdered By: Sukumar Velazquez on 07-07-2024 Nucleated RBC/100 WBC (Bld) [Ratio] 0 % 0-5 [facility] Platelet countOrdered By: Maya Velazquez on 07-07-2024 Platelets (Bld) [#/Vol] 201 10*3/uL 150-450 [facility] Potassium measurement (mass/ volume)Ordered By: Sukumar Velazquez on 07-07-2024 Potassium (Unsp spec) [Mass/Vol] 4.3 mmol/L 3.3-5.1 [facility] RBC Auto (Bld) [#/Vol]Ordere d By: Sukumar Velazquez on 07-07-2024 RBC (Bld) [#/Vol] 3.71 10*6/uL Low 4.2-5.4 [facility] Serum creatinine measurement (mass/volume)Ordered By: Sukumar Velazquez on 07-07-2024 Creatinine [Mass/Vol] 0.51 mg/dL Low 0.70-1.20 [facility] Serum glucose measurement (m ass/volume)Ordered By: Sukumar Velazquez on 07-07-2024 Glucose [Mass/Vol] 98 mg/dL 70-99 [facility] Serum or plasma calcium cedric urement (mass/volume)Ordered By: Mayajeffrydeedeesoumya Stauffercobyissa on 07-07-2024 Calcium [Mass/Vol] 9.2 mg/dL 7.6-11.0 [facility] Serum or plasma urea nitroge n measurement (mass/volume)Ordered By: Mayajeffrydeedeesoumya Stauffercobyissa on 07-07-2024 Urea nitrogen [Mass/Vol] 30 mg/dL High 4-19 [facility] Sodium levelOrdered By: Sera cramer Ehcobyissa on 07-07-2024 Sodium [Moles/Vol] 138 mmol/L 133-145 [facility] White blood cell (WBC) count Ordered By: [facility] on 07-07-2024 WBC (Bld) [#/Vol] 4.8 10*3/uL 4.4-11.0 [facility] Absolute lymphocyte countOrd ered By: Ginoarmando Orlando on 07-05-2024 Lymphocytes Auto (Unsp spec) [#/Vol] 0.85 10*3/uL 0.83-4.51 [facility] Absolute neutrophil countOrd ered By: [facility] on 07-05-2024 Neutrophils (Bld) [#/Vol] 4.8 10*3/uL 2.0-7.7 [facility] Automated lymphocyte count a s percentage of total leukocytesOrdered By: Fransisca Orlando on 07-05-2024 Lymphocytes/100 WBC Auto (Unsp spec) 13.4 % Low 19-41 [facility] Basophil percentageOrdered B y: Fransisca Orlando on 07-05-2024 Basophils/100 WBC (Bld) 0.3 % 0-1 [facility] CBC W/Diff, Automatedon Absolute Lymph 0.85 X10 3/uL Normal 0.83-4.51 [facility] Comment on above: Performed By: #### L 100.9950, L503.6550, L100.0100, L503.6030 ####[facility] [address] [place], [place], [id number] Absolute Neut 4.8 X10 3/uL Normal 2.0-7.7 [facility] Comment on above: Performed By: #### L 100.9950, L503.6550, L100.0100, L503.6030 ####[facility] [address] [place], [address] Basophils/100 WBC (Bld) 0.3 % Normal 0-1 [facility] Comment on above: Performed By: #### L 100.9950, L503.6550, L100.0100, L503.6030 ####[facility] [address] [place], [address] Eosinophils/100 WBC (Bld) 3.0 % Normal 0-5 [facility] Comment on above: Performed By: #### L 100.9950, L503.6550, L100.0100, L503.6030 ####[facility] [address] [place], [address] Erythrocyte distribution width (RBC) [Ratio] 12.2 % Normal 11.6-14.6 [facility] Comment on above: Performed By: #### L 100.9950, L503.6550, L100.0100, L503.6030 ####[facility] [address] [place], [address] Hematocrit (Bld) [Volume fraction] 36.1 % Low 37-47 [facility] Comment on above: Performed By: #### L 100.9950, L503.6550, L100.0100, L503.6030 ####[facility] [address] [place], [address] Hemoglobin (Bld) [Mass/Vol] 12.1 g/dL Normal 12.0-15.0 [facility] Comment on above: Performed By: #### L 100.9950, L503.6550, L100.0100, L503.6030 ####[facility] [address] [place], [address] IG% 0.200 Normal 0.0-0.9 [facility] Comment on above: Result Comment: IG% - Immature Granulocytes (promyelocytes, myelocytes andmetamyelocytes) > 1% indicates that a LEFT SHIFT is Present. Performed By: #### L 100.9950, L503.6550, L100.0100, L503.6030 ####[facility] [address] [place], [address] Lymphocytes/100 WBC (Bld) 13.4 % Low 19-41 [facility] Comment on above: Performed By: #### L 100.9950, L503.6550, L100.0100, L503.6030 ####[facility] [address] [place], [address] MCH (RBC) [Entitic mass] 32.6 pg High 27.0-32.0 [facility] Comment on above: Performed By: #### L 100.9950, L503.6550, L100.0100, L503.6030 ####[facility] [address] [place], [address] MCHC (RBC) [Mass/Vol] 33.5 g/dL Normal 32-36 [facility] Comment on above: Performed By: #### L 100.9950, L503.6550, L100.0100, L503.6030 ####[facility] [address] [place], [address] MCV (RBC) [Entitic vol] 97.3 fL Normal 81-99 [facility] Comment on above: Performed By: #### L 100.9950, L503.6550, L100.0100, L503.6030 ####[facility] [address] [place], [address] Monocytes/100 WBC (Bld) 7.9 % Normal 0-10 [facility] Comment on above: Performed By: #### L 100.9950, L503.6550, L100.0100, L503.6030 ####[facility] [address] [place], [address] Neutrophils/100 WBC (Bld) 75.2 % High 47-70 [facility] Comment on above: Performed By: #### L 100.9950, L503.6550, L100.0100, L503.6030 ####[facility] [address] [place], [address] Nucleated RBC (Bld) [#/Vol] 0 10*3/uL Normal 0-5 [facility] Comment on above: Performed By: #### L 100.9950, L503.6550, L100.0100, L503.6030 ####[facility] [address] [place], [address] Platelet mean volume (Bld) [Entitic vol] 10.1 fL Normal 6.2-12.0 [facility] Comment on above: Performed By: #### L 100.9950, L503.6550, L100.0100, L503.6030 ####[facility] [address] [place], [address] Platelets (Bld) [#/Vol] 204 10*3/uL Normal 150-450 [facility] Comment on above: Performed By: #### L 100.9950, L503.6550, L100.0100, L503.6030 ####[facility] [address] [place], [address] RBC (Bld) [#/Vol] 3.71 10*6/uL Low 4.2-5.4 [facility] Comment on above: Performed By: #### L 100.9950, L503.6550, L100.0100, L503.6030 ####[facility] [address] [place], [address] RDW SD 44.0 fl High 35.1-43.9 [facility] Comment on above: Performed By: #### L 100.9950, L503.6550, L100.0100, L503.6030 ####[facility] [address] [place], [address] WBC (Bld) [#/Vol] 6.3 10*3/uL Normal 4.4-11.0 [facility] Comment on above: Performed By: #### L 100.9950, L503.6550, L100.0100, L503.6030 ####[facility] [address] [place], [address] Eosinophil percentageOrdered By: Fransisca Orlando on 07-05-2024 Eosinophils/100 WBC (Bld) 3.0 % 0-5 [facility] Erythrocyte distribution wid th ratioOrdered By: [facility] on 07-05-2024 Erythrocyte distribution width (RBC) [Ratio] 12.2 % 11.6-14.6 [facility] Erythrocyte distribution wid th standard deviationOrdered By: [facility] on 07-05-2024 Erythrocyte distribution width (RBC) [Ratio] 44.0 fl High 35.1-43.9 [facility] Ferritinon 07-05-2024 Ferritin [Mass/Vol] 33 ng/mL Normal 22-378 [facility] Comment on above: Performed By: #### L 100.9950, L503.6550, L100.0100, L503.6030 ####[facility] [address] [place], [address] Hematocrit Auto (Bld) [Volum e fraction]Ordered By: Fransisca Orlando on 07-05-2024 Hematocrit (Bld) [Volume fraction] 36.1 % Low 37-47 [facility] Hemoglobin measurementOrdere d By: Fransisca Orlando on 07-05-2024 Hemoglobin (Bld) [Mass/Vol] 12.1 g/dL 12.0-15.0 [facility] Immature granulocytes/100 WB C Auto (Bld)Ordered By: [facility] on 07-05-2024 Immature granulocytes/100 WBC (Bld) 0.200 % 0.0-0.9 [facility] Comment on above: IG% - Immature Granu locytes (promyelocytes, myelocytes and metamyelocytes) > 1% indicates that a LEFT SHIFT is Present. Iron measurement (mass/mass) Ordered By: Fransisca Orlando on 07-05-2024 Iron (Unsp spec) [Mass/Mass] 114 ug/dL 50-170 [facility] Iron+Iron Binding Capacityon 07-05-2024 TIBC 231 ug/dL Low 250-450 [facility] Comment on above: Performed By: #### L 100.9950, L503.6550, L100.0100, L503.6030 ####[facility] [address] [place], [address] MCV (mean corpuscular volume ) determinationOrdered By: Fransisca Orlando on 07-05-2024 MCV (RBC) [Entitic vol] 97.3 fL 81-99 [facility] Mean corpuscular hemoglobin (MCH) determinationOrdered By: Fransisca Orlando on 07-05-2024 MCH (RBC) [Entitic mass] 32.6 pg High 27.0-32.0 [facility] Mean corpuscular hemoglobin concentration (MCHC) determinationOrdered By: Fransisca Orlando on 07-05-2024 MCHC (RBC) [Mass/Vol] 33.5 g/dL 32-36 [facility] Mean platelet volume determi nationOrdered By: [facility] on 07-05-2024 Platelet mean volume (Bld) [Entitic vol] 10.1 fL 6.2-12.0 [facility] Monocyte percentageOrdered B y: Fransisca Orlando on 07-05-2024 Monocytes/100 WBC (Bld) 7.9 % 0-10 [facility] Neutrophil percentageOrdered By: [facility] on 07-05-2024 Neutrophils/100 WBC (Bld) 75.2 % High 47-70 [facility] No Panel InformationOrdered By: Fransisca Orlando on 07-05-2024 Unsaturated Iron Binding Capacity 117 ug/dL Low 228-428 [facility] 117 ug/dL Low 228-428 [facility] Nucleated red blood cell per centageOrdered By: Fransisca Orlando on 07-05-2024 Nucleated RBC/100 WBC (Bld) [Ratio] 0 % 0-5 [facility] Oncology Visit Reporton 030 Oncology Visit Report Normal [facility] Platelet countOrdered By: Adan Orlando on 07-05-2024 Platelets (Bld) [#/Vol] 204 10*3/uL 150-450 [facility] RBC Auto (Bld) [#/Vol]Ordere d By: Fransisca Orlando on 07-05-2024 RBC (Bld) [#/Vol] 3.71 10*6/uL Low 4.2-5.4 [facility] Retic Panelon 07-05-2024 IM RET FRACTION 8.30 Normal 3.00-15.90 [facility] Comment on above: Performed By: #### L 100.9950, L503.6550, L100.0100, L503.6030 ####[facility] [address] [place], [address] RET-HE 34.9 pg Normal 30-35 [facility] Comment on above: Performed By: #### L 100.9950, L503.6550, L100.0100, L503.6030 ####[facility] [address] [place], [address] Retic Count 1.72 High 0.5-1.5 [facility] Comment on above: Performed By: #### L 100.9950, L503.6550, L100.0100, L503.6030 ####[facility] [address] [place], [address] Reticulocyte hemoglobin equi valent (RET-He) measurementOrdered By: Fransisca Orlando on 07-05-2024 Hemoglobin (Reticulocytes) [Entitic mass] 34.9 pg 30-35 [facility] Reticulocytes Auto (Bld) [#/ Vol]Ordered By: Fransisca Orlando on 07-05-2024 Reticulocytes/100 RBC (Bld) 1.72 % High 0.5-1.5 [facility] Serum or plasma ferritin pineda surement (mass/volume)Ordered By: Fransisca Orlando on 07-05-2024 Ferritin [Mass/Vol] 33 ng/mL 22-378 [facility] Serum or plasma iron saturat ion measurement (mass fraction)Ordered By: Fransisca Orlando on 07-05-2024 Iron saturation [Mass fraction] 49.4 % 15.0-55.0 [facility] Comment on above: Previous reported re sult: 49.0 %Edited by: TREVA on 07/05/24:1659 AMENDED REPORT 07/05/24 1659 IRON SATURATION previously reported as: 49.0 % White blood cell (WBC) count Ordered By: Fransisca Orlando on 07-05-2024 WBC (Bld) [#/Vol] 6.3 10*3/uL 4.4-11.0 [facility] Absolute lymphocyte countOrd ered By: Sukumar Velazquez on 06-30-2024 Lymphocytes Auto (Unsp spec) [#/Vol] 0.87 10*3/uL 0.83-4.51 [facility] Automated lymphocyte count a s percentage of total leukocytesOrdered By: Sukumar Velazquez on 06-30-2024 Lymphocytes/100 WBC Auto (Unsp spec) 21.8 % 19-41 [facility] BUN/creatinine ratioOrdered By: Sukumar Velazquez on 06-30-2024 Urea nitrogen/Creatinine [Mass ratio] 65.7 mg/mg High 10-20 [facility] Basophil percentageOrdered B y: Sukumar Velazquez on 06-30-2024 Basophils/100 WBC (Bld) 0.5 % 0-1 [facility] Carbon dioxide measurementOr dered By: Sukumar Velazquez on 06-30-2024 CO2 [Moles/Vol] 28.8 mmol/L 22.0-29.0 [facility] Chloride measurementOrdered By: Sukumar Velazquez on 06-30-2024 Chloride [Moles/Vol] 104 mmol/L 96-108 [facility] Eosinophil percentageOrdered By: Sukumar Velazquez on 06-30-2024 Eosinophils/100 WBC (Bld) 5.5 % High 0-5 [facility] Erythrocyte distribution wid th ratioOrdered By: Sukumar Velazquez on 06-30-2024 Erythrocyte distribution width (RBC) [Ratio] 12.3 % 11.6-14.6 [facility] Erythrocyte distribution wid th standard deviationOrdered By: Sukumar Velazquez on 06-30-2024 Erythrocyte distribution width (RBC) [Ratio] 44.6 fl High 35.1-43.9 [facility] Glomerular filtration rate ( GFR) estimation/1.73 sq m using serum, plasma, or whole bOrdered By: Seranerstrandsoumya Velazquez on 06-30-2024 GFR/1.73 sq M.predicted among non-blacks MDRD (S/P/Bld) [Vol rate/Area] 98 mL/min/{1.73_m2} >60 [facility] Hematocrit Auto (Bld) [Volum e fraction]Ordered By: Sukumar Velazquez 06-30-2024 Hematocrit (Bld) [Volume fraction] 34.1 % Low 37-47 [facility] Hemoglobin measurementOrdere d By: Sukumar Velazquez on 06-30-2024 Hemoglobin (Bld) [Mass/Vol] 11.2 g/dL Low 12.0-15.0 [facility] Immature granulocytes/100 WB C Auto (Bld)Ordered By: Sukumar Velazquez on 06-30-2024 Immature granulocytes/100 WBC (Bld) 0.500 % 0.0-0.9 [facility] MCV (mean corpuscular volume ) determinationOrdered By: Sukumar Velazquez 06-30-2024 MCV (RBC) [Entitic vol] 99.1 fL High 81-99 [facility] Mean corpuscular hemoglobin (MCH) determinationOrdered By: Sukumar Velazquez 06-30-2024 MCH (RBC) [Entitic mass] 32.6 pg High 27.0-32.0 [facility] Monocyte percentageOrdered B y: Sukumar Velazquez on 06-30-2024 Monocytes/100 WBC (Bld) 13.8 % High 0-10 [facility] Neutrophil percentageOrdered By: Mayajeffrybela Ehayala on 06-30-2024 Neutrophils/100 WBC (Bld) 57.9 % 47-70 [facility] Platelet countOrdered By: Maya rosie Ehayala on 06-30-2024 Platelets (Bld) [#/Vol] 187 10*3/uL 150-450 [facility] RBC Auto (Bld) [#/Vol]Ordere d By: Sukumar Ehayala on 06-30-2024 RBC (Bld) [#/Vol] 3.44 10*6/uL Low 4.2-5.4 [facility] Serum glucose measurement (m ass/volume)Ordered By: Sukumar Velazquez on 06-30-2024 Glucose [Mass/Vol] 99 mg/dL 70-99 [facility] Serum or plasma anion gap de termination (moles/volume)Ordered By: Sukumar Velazquez on 06-30-2024 Anion gap [Moles/Vol] 7 mmol/L 5-15 [facility] Serum or plasma calcium cedric urement (mass/volume)Ordered By: Sukumar Velazquez on 06-30-2024 Calcium [Mass/Vol] 9.6 mg/dL 7.6-11.0 [facility] Serum or plasma creatinine m easurement (moles/volume)Ordered By: Sukumar Velazquez on 06-30-2024 Creatinine [Moles/Vol] 0.5 mg/dL Low 0.6-1.0 [facility] Serum or plasma potassium me asurementOrdered By: Sukumar Velazquez on 06-30-2024 Potassium [Moles/Vol] 4.2 mmol/L 3.3-5.1 [facility] Serum or plasma sodium measu rement (moles/volume)Ordered By: Sukumar Velazquez on 06-30-2024 Sodium [Moles/Vol] 140 mmol/L 133-145 [facility] Serum or plasma urea nitroge n measurement (mass/volume)Ordered By: Sukumar Velazquez on 06-30-2024 Urea nitrogen [Mass/Vol] 34 mg/dL High 4-19 [facility] White blood cell (WBC) count Ordered By: Sukumar Velazquez on 06-30-2024 WBC (Bld) [#/Vol] 4.0 10*3/uL Low 4.4-11.0 [facility] Culture, Anaerobic Any Sourc nel 06-25-2024 CUAN Normal [facility] Comment on above: Performed By: #### M 100.3000, M100.4001, M100.1999 ####[facility] [address] [place], [address] Wound Cultureon 06-25-2024 WC Normal [facility] Comment on above: Performed By: #### M 100.3000, M100.4001, M100.1999 ####[facility] [address] [place], [address] Absolute lymphocyte countOrd ered By: Sukumar Velazquez on 06-23-2024 Lymphocytes Auto (Unsp spec) [#/Vol] 1.12 10*3/uL 0.83-4.51 [facility] Automated lymphocyte count a s percentage of total leukocytesOrdered By: Sukumar Velazquez on 06-23-2024 Lymphocytes/100 WBC Auto (Unsp spec) 28.8 % 19-41 [facility] Basophil percentageOrdered B y: Sukumar Velazquez on 06-23-2024 Basophils/100 WBC (Bld) 0.5 % 0-1 [facility] Carbon dioxide measurementOr dered By: Sukumar Velazquez on 06-23-2024 CO2 [Moles/Vol] 32.0 mmol/L 21.0-32.0 [facility] Chloride measurementOrdered By: Sukumar Velazquez on 06-23-2024 Chloride [Moles/Vol] 104 mmol/L 98-107 [facility] Eosinophil percentageOrdered By: Sukumar Velazquez on 06-23-2024 Eosinophils/100 WBC (Bld) 6.7 % High 0-5 [facility] Erythrocyte distribution wid th ratioOrdered By: Sukumar Velazquez on 06-23-2024 Erythrocyte distribution width (RBC) [Ratio] 12.3 % 11.6-14.6 [facility] Erythrocyte distribution wid th standard deviationOrdered By: Sukumar Velazquez on 06-23-2024 Erythrocyte distribution width (RBC) [Ratio] 45.8 fl High 35.1-43.9 [facility] Glomerular filtration rate ( GFR) estimationOrdered By: Sukumar Velazquez on 06-23-2024 GFR/1.73 sq M.predicted among non-blacks MDRD (S/P/Bld) [Vol rate/Area] 162 mL/min/{1.73_m2} >60 [facility] Glucose measurementOrdered B y: Sukumar Velazquez on 06-23-2024 Glucose [Mass/Vol] 87 mg/dL 74-106 [facility] Hematocrit Auto (Bld) [Volum e fraction]Ordered By: Sukumar Velazquez on 06-23-2024 Hematocrit (Bld) [Volume fraction] 33.9 % Low 37-47 [facility] Hemoglobin measurementOrdere d By: Sukumar Velazquez on 06-23-2024 Hemoglobin (Bld) [Mass/Vol] 10.9 g/dL Low 12.0-15.0 [facility] Immature granulocytes/100 WB C Auto (Bld)Ordered By: Sukumar Velazquez on 06-23-2024 Immature granulocytes/100 WBC (Bld) 0.300 % 0.0-0.9 [facility] MCV (mean corpuscular volume ) determinationOrdered By: Sukumar Velazquez on 06-23-2024 MCV (RBC) [Entitic vol] 100.6 fL High 81-99 [facility] Mean corpuscular hemoglobin (MCH) determinationOrdered By: Sukumar Velazquez on 06-23-2024 MCH (RBC) [Entitic mass] 32.3 pg High 27.0-32.0 [facility] Monocyte percentageOrdered B y: Sukumar Velazquez on 06-23-2024 Monocytes/100 WBC (Bld) 12.3 % High 0-10 [facility] Neutrophil percentageOrdered By: Sukumar Velazquez on 06-23-2024 Neutrophils/100 WBC (Bld) 51.4 % 47-70 [facility] Platelet countOrdered By: rosie Ehayala on 06-23-2024 Platelets (Bld) [#/Vol] 184 10*3/uL 150-450 [facility] Potassium measurementOrdered By: Sukumar Ehcobyissa on 06-23-2024 Potassium [Moles/Vol] 4.2 mmol/L 3.5-5.1 [facility] RBC Auto (Bld) [#/Vol]Ordere d By: Sukumar Ehayala on 06-23-2024 RBC (Bld) [#/Vol] 3.37 10*6/uL Low 4.2-5.4 [facility] Serum or plasma calcium cedric urement (mass/volume)Ordered By: Mayajeffrybela Ehcobyissa on 06-23-2024 Calcium [Mass/Vol] 9.4 mg/dL 8.5-10.1 [facility] Serum or plasma creatinine m easurement (mass/volume)Ordered By: Sukumar Ehayala on 06-23-2024 Creatinine [Mass/Vol] 0.41 mg/dL Low 0.55-1.02 [facility] Serum or plasma urea nitroge n measurement (mass/volume)Ordered By: Mayajeffrybela Ehcobyissa on 06-23-2024 Urea nitrogen [Mass/Vol] 32 mg/dL High 7-18 [facility] Sodium levelOrdered By: Sera cramer Ehcobyissa on 06-23-2024 Sodium [Moles/Vol] 138 mmol/L 136-145 [facility] White blood cell (WBC) count Ordered By: Sukumar Ehcobyissa on 06-23-2024 WBC (Bld) [#/Vol] 3.9 10*3/uL Low 4.4-11.0 [facility] Anaerobic cultureOrdered By: Evelyn Robertson on 06-22-2024 Bacteria identified Anaer cx Nom (Unsp spec) Anaerobic cocci Abnormal [facility] Gram Stainon 06-22-2024 GS RIGHT BUTTOCK Gram Stain 4+ Red Blood Cells Rare Gram positive diplococci Rare Gram positive rods Normal [facility] Comment on above: Performed By: #### M 100.3000, M100.4001, M100.1999 ####[facility] [address] [place], [address] Gram stainOrdered By: Evelyn constantino on 06-22-2024 Microscopic observation Gram stain Nom (Unsp spec) [facility] Routine wound cultureOrdered By: Evelyn Robertson on 06-22-2024 Microbial culture, routine Haemophilus parainfluenzae Abnormal [facility] Absolute lymphocyte countOrd ered By: Sukumar Velazquez on 06-16-2024 Lymphocytes Auto (Unsp spec) [#/Vol] 1.10 10*3/uL 0.83-4.51 [facility] Automated lymphocyte count a s percentage of total leukocytesOrdered By: Sukumar Velazquez on 06-16-2024 Lymphocytes/100 WBC Auto (Unsp spec) 28.9 % 19-41 [facility] Basophil percentageOrdered B y: Sukumar Velazquez on 06-16-2024 Basophils/100 WBC (Bld) 0.5 % 0-1 [facility] Carbon dioxide measurementOr dered By: Sukumar Velazquez on 06-16-2024 CO2 [Moles/Vol] 32.0 mmol/L 21.0-32.0 [facility] Chloride measurementOrdered By: Sukumar Velazquez on 06-16-2024 Chloride [Moles/Vol] 106 mmol/L 98-107 [facility] Eosinophil percentageOrdered By: Sukumar Velazquez on 06-16-2024 Eosinophils/100 WBC (Bld) 8.4 % High 0-5 [facility] Erythrocyte distribution wid th ratioOrdered By: Sukumar Velazquez on 06-16-2024 Erythrocyte distribution width (RBC) [Ratio] 12.1 % 11.6-14.6 [facility] Erythrocyte distribution wid th standard deviationOrdered By: Sukumar Velazquez on 06-16-2024 Erythrocyte distribution width (RBC) [Ratio] 45.1 fl High 35.1-43.9 [facility] Glomerular filtration rate ( GFR) estimationOrdered By: Sukumar Velazquez on 06-16-2024 GFR/1.73 sq M.predicted among non-blacks MDRD (S/P/Bld) [Vol rate/Area] 135 mL/min/{1.73_m2} >60 [facility] Glucose measurementOrdered B y: Sukumar Velazquez on 06-16-2024 Glucose [Mass/Vol] 91 mg/dL 74-106 [facility] Hematocrit Auto (Bld) [Volum e fraction]Ordered By: Sukumar Velazquez on 06-16-2024 Hematocrit (Bld) [Volume fraction] 33.2 % Low 37-47 [facility] Hemoglobin measurementOrdere d By: Sukumar Velazquez on 06-16-2024 Hemoglobin (Bld) [Mass/Vol] 10.8 g/dL Low 12.0-15.0 [facility] Immature granulocytes/100 WB C Auto (Bld)Ordered By: Sukumar Velazquez on 06-16-2024 Immature granulocytes/100 WBC (Bld) 0.300 % 0.0-0.9 [facility] MCV (mean corpuscular volume ) determinationOrdered By: Sukumar Velazquez on 06-16-2024 MCV (RBC) [Entitic vol] 99.7 fL High 81-99 [facility] Mean corpuscular hemoglobin (MCH) determinationOrdered By: Sukumar Velazquez 06-16-2024 MCH (RBC) [Entitic mass] 32.4 pg High 27.0-32.0 [facility] Monocyte percentageOrdered B y: Sukumar Velazquez on 06-16-2024 Monocytes/100 WBC (Bld) 12.6 % High 0-10 [facility] Neutrophil percentageOrdered By: Sukumar Velazquez on 06-16-2024 Neutrophils/100 WBC (Bld) 49.3 % 47-70 [facility] Platelet countOrdered By: Maya jeffrybela Velazquez on 06-16-2024 Platelets (Bld) [#/Vol] 201 10*3/uL 150-450 [facility] Potassium measurementOrdered By: Sukumar Velazquez on 06-16-2024 Potassium [Moles/Vol] 4.2 mmol/L 3.5-5.1 [facility] RBC Auto (Bld) [#/Vol]Ordere d By: Seradeedeesoumya Velazquez on 06-16-2024 RBC (Bld) [#/Vol] 3.33 10*6/uL Low 4.2-5.4 [facility] Serum or plasma calcium cedric urement (mass/volume)Ordered By: Sukumar Velazquez on 06-16-2024 Calcium [Mass/Vol] 9.4 mg/dL 8.5-10.1 [facility] Serum or plasma creatinine m easurement (mass/volume)Ordered By: Sukumar Velazquez on 06-16-2024 Creatinine [Mass/Vol] 0.48 mg/dL Low 0.55-1.02 [facility] Serum or plasma urea nitroge n measurement (mass/volume)Ordered By: Sukumar Velazquez on 06-16-2024 Urea nitrogen [Mass/Vol] 33 mg/dL High 7-18 [facility] Sodium levelOrdered By: Mayajeffry cramer Caroline on 06-16-2024 Sodium [Moles/Vol] 142 mmol/L 136-145 [facility] White blood cell (WBC) count Ordered By: Sukumar Velazquez on 06-16-2024 WBC (Bld) [#/Vol] 3.8 10*3/uL Low 4.4-11.0 [facility] Absolute lymphocyte countOrd ered By: Sukumar Velazquez on 06-09-2024 Lymphocytes Auto (Unsp spec) [#/Vol] 0.88 10*3/uL 0.83-4.51 [facility] Automated lymphocyte count a s percentage of total leukocytesOrdered By: Sukumar Velazquez on 06-09-2024 Lymphocytes/100 WBC Auto (Unsp spec) 24.0 % 19-41 [facility] Basophil percentageOrdered B y: Sukumar Velazquez on 06-09-2024 Basophils/100 WBC (Bld) 0.5 % 0-1 [facility] Carbon dioxide measurementOr dered By: Sukumar Velazquez on 06-09-2024 CO2 [Moles/Vol] 30.0 mmol/L 21.0-32.0 [facility] Chloride measurementOrdered By: Sukumar Velazquez on 06-09-2024 Chloride [Moles/Vol] 103 mmol/L 98-107 [facility] Eosinophil percentageOrdered By: Sukumar Velazquez on 06-09-2024 Eosinophils/100 WBC (Bld) 6.0 % High 0-5 [facility] Erythrocyte distribution wid th ratioOrdered By: Seranerstrandsoumya Velazquez on 06-09-2024 Erythrocyte distribution width (RBC) [Ratio] 12.5 % 11.6-14.6 [facility] Erythrocyte distribution wid th standard deviationOrdered By: Sukumar Velazquez on 06-09-2024 Erythrocyte distribution width (RBC) [Ratio] 46.3 fl High 35.1-43.9 [facility] Glomerular filtration rate ( GFR) estimationOrdered By: Sukumar Velazquez on 06-09-2024 GFR/1.73 sq M.predicted among non-blacks MDRD (S/P/Bld) [Vol rate/Area] 161 mL/min/{1.73_m2} >60 [facility] Glucose measurementOrdered B y: Sukumar Velazquez on 06-09-2024 Glucose [Mass/Vol] 81 mg/dL 74-106 [facility] Hematocrit Auto (Bld) [Volum e fraction]Ordered By: Sukumar Velazquez on 06-09-2024 Hematocrit (Bld) [Volume fraction] 33.5 % Low 37-47 [facility] Hemoglobin measurementOrdere d By: Sukumar Velazquez on 06-09-2024 Hemoglobin (Bld) [Mass/Vol] 10.5 g/dL Low 12.0-15.0 [facility] Immature granulocytes/100 WB C Auto (Bld)Ordered By: Sukumar Velazquez on 06-09-2024 Immature granulocytes/100 WBC (Bld) 0.300 % 0.0-0.9 [facility] MCV (mean corpuscular volume ) determinationOrdered By: Sukumar Velazquez on 06-09-2024 MCV (RBC) [Entitic vol] 100.0 fL High 81-99 [facility] Mean corpuscular hemoglobin (MCH) determinationOrdered By: Sukumar Velazquez on 06-09-2024 MCH (RBC) [Entitic mass] 31.3 pg 27.0-32.0 [facility] Monocyte percentageOrdered B y: Sukumar Velazquez on 06-09-2024 Monocytes/100 WBC (Bld) 12.6 % High 0-10 [facility] Neutrophil percentageOrdered By: Sukumar Velazquez on 06-09-2024 Neutrophils/100 WBC (Bld) 56.6 % 47-70 [facility] Platelet countOrdered By: Maya Velazquez on 06-09-2024 Platelets (Bld) [#/Vol] 191 10*3/uL 150-450 [facility] Potassium measurementOrdered By: Sukumar Velazquez on 06-09-2024 Potassium [Moles/Vol] 4.1 mmol/L 3.5-5.1 [facility] RBC Auto (Bld) [#/Vol]Ordere d By: Sukumar Velazquez on 06-09-2024 RBC (Bld) [#/Vol] 3.35 10*6/uL Low 4.2-5.4 [facility] Serum or plasma calcium cedric urement (mass/volume)Ordered By: Sukumar Velazquez on 06-09-2024 Calcium [Mass/Vol] 9.1 mg/dL 8.5-10.1 [facility] Serum or plasma creatinine m easurement (mass/volume)Ordered By: Sukumar Velazquez on 06-09-2024 Creatinine [Mass/Vol] 0.41 mg/dL Low 0.55-1.02 [facility] Serum or plasma urea nitroge n measurement (mass/volume)Ordered By: Sukumar Velazquez on 06-09-2024 Urea nitrogen [Mass/Vol] 28 mg/dL High 7-18 [facility] Sodium levelOrdered By: Sera Velazquez on 06-09-2024 Sodium [Moles/Vol] 138 mmol/L 136-145 [facility] White blood cell (WBC) count Ordered By: Sukumar Velazquez on 06-09-2024 WBC (Bld) [#/Vol] 3.7 10*3/uL Low 4.4-11.0 [facility] Culture, Anaerobic Any Sourc nel 05-17-2024 CUAN RIGHT Cutibacterium acnes Normal [facility] Comment on above: Performed By: #### M 100.4001, M100.3000, M100.1999 ####[facility] [address] [place], [place], [address] Wound Cultureon 05-14-2024 WC Normal [facility] Comment on above: Performed By: #### M 100.4001, M100.3000, M100.1999 ####[facility] [address] [place], [place], [address] Gram Stainon 05-12-2024 GS RIGHT Gram Stain No organisms seen 4+ Red Blood Cells No Epithelial cells Normal [facility] Comment on above: Performed By: #### M 100.4001, M100.3000, M100.1999 ####[facility] [address] [place], [place], [address] CNPNon 05-09-2024 [facility] Telephone (INFDAK) ALEENA ANDREA ([id number]) 1950 F NFR Date Time Provider Department 05/09/24 JIM TORRES INFDAK During your visit today, we recorded the following information about you: Juliane Landa RN 05/09/2024 3:22 PM Signed Copat stop date 05/10/24. Can stop date be honored and PICC be removed after last dose of cefazolin? EFE Alfaro Ken Koon, MD 05/09/2024 3:38 PM Signed Ok to honor end date and remove picc. Thanks. MD Analy Devries Ann Marie, RN 05/09/2024 3:53 PM Signed Verbal order relayed to patient's nurse at [facility]. Juliane Ladna RN Allergies As of Date: 05/09/2024 Noted Allergy Reaction ZICONOTIDE 09/10/2020 14 - Other: See Comments Comments: Aka prialt Date Reviewed: 04/21/2024 Reviewed by: Viki Woodson RN - Fully Assessed Reason for Visit: CoPat Stop [1684] Prescriptions as of 05/09/2024 - ceFAZolin (ANCEF) 2 gram/100 mL in dextrose (iso-osmotic) Inject 100 mL intravenously every 8 hours for 18 days. - senna-docusate (SENNA-S) 8.6-50 mg per tablet Take 1 tablet by mouth two times a day as needed for constipation. - naloxone 4 mg/actuation nasal spray (NARCAN) Use 1 spray in one nostril as needed for overdose. May repeat every 2 to 3 min in alternating nostrils until medical assistance is available - acetaminophen (TYLENOL) 325 mg tablet Take 650 mg by mouth four times a day as needed for pain. - NaCl (PF) 0.9% soln by INTRATHECAL route continuous. Hydromorphone and baclofen - inulin (FIBER GUMMIES ORAL) Take 1 Each by mouth once daily. - DULoxetine (CYMBALTA) 30 mg capsule Take 90 mg by mouth once daily. 30 mg daily in the morning 60 mg daily in the evening - gabapentin (NEURONTIN) 800 mg tablet Take 800 mg by mouth four times daily. - cloNIDine HCl (CATAPRES) 0.2 mg tablet Take 0.2 mg by mouth daily at bedtime. - docusate sodium (COLACE) 100 mg capsule Take 100 mg by mouth twice daily as needed for constipation. - POLYETHYLENE GLYCOL 3350 (MIRALAX ORAL) Take 1 Packet by mouth once daily as needed (constipation). - traZODone 100 mg tablet Take 100 mg by mouth daily at bedtime. - DENOSUMAB (PROLIA SUBCUTANEOUS) Inject subcutaneously. One injection every 6 months. - NAPROXEN ORAL Take 375 mg by mouth twice daily. - WHEELCHAIR [facility] STANDING WHEELCHAIR Problem List As Of Date 05/09/2024 Noted Resolved Paraplegia (HCC) [G82.20] 12/29/2001 Pain in limb [M79.609] 12/29/2001 MYELOPATHY NEC [G95.89] 04/14/2002 CONSTIPATION NOS [K59.00] ABN FIND-STOOL CONTENTS-OCC BLOOD [R19.5] NONORGANIC SLEEP DIS NOS [F51.9] ENCEPHALITIS NOS [G04.90, G04.91] OTHER GENERAL SYMPTOMS [R68.89] MIGRNE UNSP WO NTRC MGRN [G43.909] ROSACEA [L71.9] OSTEOPOROSIS NOS [M81.0] ANEMIA NOS [D64.9] 05/31/2008 ACUTE GASTRITIS W/O HEMORRHAGE [K29.00] 05/31/2008 Respiratory Failure [J96.90] CAD (Coronary Artery Disease) [I25.10] CHF (Congestive Heart Failure) [I50.9] Chronic pain [G89.29] Depression [F32.A] Transverse Myelitis [G37.3] Vulvar rash [R21] 09/10/2012 07/26/2013 SBO (small bowel obstruction) (HCC) [K56.609] 09/20/2022 09/28/2022 Paralysis (HCC) [G83.9] 09/20/2022 Encounter for pain management [R52] 09/20/2022 Moderate protein-calorie malnutrition (HCC) [E4*09/20/2022 Pressure injury of coccygeal region, stage 2 (H*09/22/2022 Pressure injury of dorsum of left foot, stage 2*09/22/2022 Soft tissue abscess [L02.91] 04/14/2024 04/22/2024 Pressure injury of right ischium, unstageable (*04/14/2024 Pressure injury of right perineal ischial regio*04/14/2024 Chronic constipation [K59.09] 04/14/2024 04/22/2024 Post-op pain [G89.18] 04/15/2024 Constipation [K59.00] 04/15/2024 Primary hypertension [I10] 04/17/2024 04/22/2024 History of depression [Z86.59] 04/17/2024 Encounter Status:Closed by JULIANE LANDA on 05/09/24 Normal [facility] CBCDIF (EXTERNAL)on 05-05-19 25 BASO ABS [facility] Basophils/100 WBC (Bld) 1.1 % 0 - 1.5 % [facility] EOS [facility] Eosinophils/100 WBC (Bld) 15 % Abnormal 1 - 3 % [facility] Erythrocyte distribution width (RBC) [Ratio] 14.7 % Abnormal 11.6 - 14.6 % [facility] Hematocrit (Bld) [Volume fraction] 30.9 % Abnormal 39 - 55 % [facility] Hemoglobin (Bld) [Mass/Vol] 9.8 g/dL Abnormal 14 - 16.5 g/dL [facility] Lymphocytes (Bld) [#/Vol] 0.95 10*3/uL Abnormal 1. 2 - 4 K/uL [facility] Lymphocytes/100 WBC (Bld) 25 % 20 - 30 % [facility] MCH (RBC) [Entitic mass] 33.2 pg 25. 4 - 34.6 pg [facility] MCHC (RBC) [Mass/Vol] 31.7 g/dL 30 - 3 6 g/dL [facility] MCV (RBC) [Entitic vol] 104.7 fL Abnormal 79 - 98 fL [facility] MONO ABS [facility] Monocytes/100 WBC (Bld) 11.1 % Abnormal 2 - 8 % C [facility] NEUT ABS 1.8 K/uL Abnormal 1.9 - 8 K/uL [facility] Neutrophils/100 WBC (Bld) 47.5 % 40 - 74 % [facility] Platelet mean volume (Bld) [Entitic vol] 10.4 fL 7.4 - 10.4 fL [facility] Platelets (Bld) [#/Vol] 193 10*3/uL 140 - 440 K/uL [facility] RBC (Bld) [#/Vol] 2.95 10*6/uL Abnormal [facility] WBC (Bld) [#/Vol] 3.8 10*3/uL Abnormal 3.9 - 11 K/uL [facility] CNPNon 05-05-2024 CNPN Telephone (INFDAK) ALEENA ANDREA ([id number]) 1950 F NFR Date Time Provider Department 05/05/24 JIM TORRES INFDAK During your visit today, we recorded the following information about you: Juliane Landa, EFE 05/05/2024 2:37 PM Signed External copat lab results entered. Juliane Landa RN Allergies As of Date: 05/05/2024 Noted Allergy Reaction ZICONOTIDE 09/10/2020 14 - Other: See Comments Comments: Meliza joiner Date Reviewed: 04/21/2024 Reviewed by: Viki Woodson RN - Fully Assessed Reason for Visit: Results [95] Order(s):CREATININE BLOOD (AK,AV,EU,FV,HL,HUGH,MM ,SP) [0220733] Order #: [id number] CBCDIF (EXTERNAL) [[id number]] Order #: [id number] Prescriptions as of 05/05/2024 - ceFAZolin (ANCEF) 2 gram/100 mL in dextrose (iso-osmotic) Inject 100 mL intravenously every 8 hours for 18 days. - senna-docusate (SENNA-S) 8.6-50 mg per tablet Take 1 tablet by mouth two times a day as needed for constipation. - naloxone 4 mg/actuation nasal spray (NARCAN) Use 1 spray in one nostril as needed for overdose. May repeat every 2 to 3 min in alternating nostrils until medical assistance is available - acetaminophen (TYLENOL) 325 mg tablet Take 650 mg by mouth four times a day as needed for pain. - NaCl (PF) 0.9% soln by INTRATHECAL route continuous. Hydromorphone and baclofen - inulin (FIBER GUMMIES ORAL) Take 1 Each by mouth once daily. - DULoxetine (CYMBALTA) 30 mg capsule Take 90 mg by mouth once daily. 30 mg daily in the morning 60 mg daily in the evening - gabapentin (NEURONTIN) 800 mg tablet Take 800 mg by mouth four times daily. - cloNIDine HCl (CATAPRES) 0.2 mg tablet Take 0.2 mg by mouth daily at bedtime. - docusate sodium (COLACE) 100 mg capsule Take 100 mg by mouth twice daily as needed for constipation. - POLYETHYLENE GLYCOL 3350 (MIRALAX ORAL) Take 1 Packet by mouth once daily as needed (constipation). - traZODone 100 mg tablet Take 100 mg by mouth daily at bedtime. - DENOSUMAB (PROLIA SUBCUTANEOUS) Inject subcutaneously. One injection every 6 months. - NAPROXEN ORAL Take 375 mg by mouth twice daily. - WHEELCHAIR [facility] STANDING WHEELCHAIR Problem List As Of Date 05/05/2024 Noted Resolved Paraplegia (HCC) [G82.20] 12/29/2001 Pain in limb [M79.609] 12/29/2001 MYELOPATHY NEC [G95.89] 04/14/2002 CONSTIPATION NOS [K59.00] ABN FIND-STOOL CONTENTS-OCC BLOOD [R19.5] NONORGANIC SLEEP DIS NOS [F51.9] ENCEPHALITIS NOS [G04.90, G04.91] OTHER GENERAL SYMPTOMS [R68.89] [facility]NE [facility]SP [facility] MGRN [G43.909] ROSACEA [L71.9] OSTEOPOROSIS NOS [M81.0] ANEMIA NOS [D64.9] 05/31/2008 ACUTE GASTRITIS W/O HEMORRHAGE [K29.00] 05/31/2008 Respiratory Failure [J96.90] CAD (Coronary Artery Disease) [I25.10] CHF (Congestive Heart Failure) [I50.9] Chronic pain [G89.29] Depression [F32.A] Transverse Myelitis [G37.3] Vulvar rash [R21] 09/10/2012 07/26/2013 SBO (small bowel obstruction) (HCC) [K56.609] 09/20/2022 09/28/2022 Paralysis (HCC) [G83.9] 09/20/2022 Encounter for pain management [R52] 09/20/2022 Moderate protein-calorie malnutrition (HCC) [E4*09/20/2022 Pressure injury of coccygeal region, stage 2 (H*09/22/2022 Pressure injury of dorsum of left foot, stage 2*09/22/2022 Soft tissue abscess [L02.91] 04/14/2024 04/22/2024 Pressure injury of right ischium, unstageable (*04/14/2024 Pressure injury of right perineal ischial regio*04/14/2024 Chronic constipation [K59.09] 04/14/2024 04/22/2024 Post-op pain [G89.18] 04/15/2024 Constipation [K59.00] 04/15/2024 Primary hypertension [I10] 04/17/2024 04/22/2024 History of depression [Z86.59] 04/17/2024 Encounter Status:Closed by JULIANE LNADA on 05/05/24 Normal [facility] CREATININE BLOOD (AK,AV,EU,F V,HL,HUGH,MM,SP)on 05-05-2024 Creatinine [Mass/Vol] 0.39 mg/dL Abnormal 0.70 - 1.20 mg/dL [facility] GFR 170 [facility] GFR AFR AMER 206 [facility] No Panel Informationon 05-05 Interpretation and review of laboratory results Abnormal [facility] CNDSon 04-22-2024 CNDS HNO ID: [id number] Author: GUSTABO SALDIVAR MD Service: Hospital Medicine Author Type: Resident Type: Discharge Summary Filed: 04/22/2024 14:39 Note Text: Attestation signed by Gustabo Saldivar MD at 04/22/2024 2:39 PM Attending Note I personally saw and examined the patient. I reviewed the resident's note. I agree with the resident's assessment and plan unless otherwise noted. > 30 minutes were spent by the medical team in preparation, coordination and counseling during the discharge process. Signature: Gustabo Saldivar MD Date: 04/22/2024 Time: 2:39 PM DISCHARGE SUMMARY PATIENT NAME: Aleena Andrea ADMISSION DATE: 04/13/2024 DISCHARGE DATE: 04/22/2024 Attending Physician: Gustabo Saldivar MD Code Status: Full Code Highest Readmission Risk Score: 26 The 30 day readmissions risk score is derived from an internally validated risk model which evaluates patient level characteristics, utilization history, medication orders and lab results up until the day of discharge. Patients with a score of 40 or above are considered highest risk for readmission. Specific patient level drivers will be listed at the bottom of the summary. PRINCIPAL PROBLEM: Soft tissue abscess Hospital Course: Ms. 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 Initial imaging with CT A/P showed right-sided 8.5 x 8.3 cm subcutaneous abscess extending into right ischiorectal fossa with extensive soft tissue cellulitis. She was admitted to House medicine with consult to general surgery and infectious disease for further recommendation and management. She underwent initial debridement followed by IR draining procedure which only yielded 2cc of fluids and the abscess was believed to be necrotic tissue. A second surgical debridement was performed by surgery with successful debridement to healthy tissue. Cultures grew s aureus and patient was treated with vancomycin and cefazolin with PICC placement for CoPat. Over the course of the hospital stay she was followed by pain management and refilled her intrathecal pain pump on the last day of admission (04/22/24). Patient seen and evaluated today at bedside. She reports improvement in her pain and denies fever, chills, nausea, vomiting, chest pain, shortness of breath, abdominal pain, urinary changes, or new onset symptoms. We discussed plans for the patient to be discharged today to [facility] with one day prescription for opiates to which she expressed agreement. Operations During Hospitalization: None Procedures During Hospitalization: Two surgical debridements, CT A/P Active Hospital Problems as of 04/22/2024 Noted - Resolved POA Hospital Paraplegia ([facility]) 12/29/2001 - Present Yes Chronic pain Unknown - Present Yes Pressure injury of dorsum of left foot, stage 2 ([facility]) 09/22/2022 - Present Yes Pressure injury of right ischium, unstageable ([facility]) 04/14/2024 - Present Yes Pressure injury of right perineal ischial region, unstageable ([facility]) 04/14/2024 - Present Yes Post-op pain 04/15/2024 - Present Yes History of depression 04/17/2024 - Present Yes Resolved Hospital Problems as of 04/22/2024 Noted - Resolved Hospital * (Principal) Soft tissue abscess 04/14/2024 - 04/22/2024 Chronic constipation 04/14/2024 - 04/22/2024 Primary hypertension 04/17/2024 - 04/22/2024 Relevant Results Most Recent 04/20/24 04/17/24 04/16/24 04/15/24 04/15/24 04/13/24 09/28/22 General Chemistry Potassium 4.4 (04/17/24) 4.4 4.5 3.7 3.7 4.3 Creatinine 0.49 (04/20/24) 0.49 0.49 0.48 0.38 0.36 0.43 Transitions of Care Critical Issues: Transfer to SNF for further rehabilitation Consulting Teams During Hospitalization: Infectious Disease: Surgery : General Patient Condition @ Discharge: Improved Patient is able to complete ADLS but not IADLS which represents a return to baseline mental/physical health. Discharge Disposition: [facility] Physical Exam: Physical Exam Constitutional: Appearance: Normal appearance. HENT: Head: Normocephalic. Eyes: Pupils: Pupils are equal, round, and reactive to light. Cardiovascular: Rate and Rhythm: Normal rate and regular rhythm. Pulses: Normal pulses. Heart sounds: Normal heart sounds. Pulmonary: Effort: Pulmonary effort is normal. No respiratory distress. Breath sounds: Normal breath sounds. No wheezing. Abdominal: General: Abdomen is flat. Palpations: Abdomen is soft. There is no mass. Tenderness: There is abdominal tenderness. There is no guarding or rebound. Musculoskeletal: General: (more content not included)... Normal [facility] CONSULT PROGon 04-21-2024 CONSULT PROG HNO ID: [id number] Author: ISAAC TRAMMELL APRN.LIAISON OFFICER, JAMES Service: General Surgery Author Type: Nurse Practitioner Type: Consult Progress Note Filed: 04/21/2024 09:16 Note Text: Summary: Surgery sign-off Emergency General Surgery Progress Note SERVICE DATE: April 21, 2024 Emergency General Surgery Service Pager: For questions or concerns Mon-Fri 6a-5p please page [phone]. After 5pm and on Weekends and Holidays, please page [phone] if in ICU or [phone] if on RNF. SUBJECTIVE: Right ischial pressure ulcer s/p second debridement 04/19. Some bleeding postoperative which has since resolved Does not have sensation at wound Denies fever or chills. OBJECTIVE: Vitals: Temp (24hrs), Av.4 ?C (97.6 ?F), Min:36.3 ?C (97.3 ?F), Max:36.8 ?C (98.3 ?F) BP 147/68 Pulse 86 Temp 36.3 ?C (97.4 ?F) (Oral) Resp 16 Ht 154.9 cm (5' 1) Wt 54.1 kg (119 lb 4.3 oz) LMP 08/16/2002 SpO2 97% BMI 22.54 kg/m? O2 Therapy: Room Air IANDO: Date 04/20/24 07 - 04/21/2459 04/21/24 07 - 04/22/24 0659 Shift [id number] 1805-3236 7470-0040 24 Hour Total 7210-8033 4136-9887 3131-1312 24 Hour Total INTAKE Shift Total OUTPUT Urine 2200 1100 3300 Straight cath (ml) 2200 1100 3300 # of BMs Number of BMs 1 x 1 x Shift Total 2200 1100 3300 Weight (kg) 54.1 54.1 54.1 54.1 54.1 54.1 54.1 54.1 MEDICATIONS Current Facility-Administered Medications Medication Dose Route Frequency ceFAZolin iv piggyback 2 g in D5W (iso-osmotic) 100 mL (ANCEF) 2 g INTRAVENOUS q 8 HR enoxaparin 30 mg injection (LOVENOX) 30 mg SUBCUTANEOUS q 24 HR cloNIDine HCl 0.1 mg tab(s) (CATAPRES) 0.1 mg ORAL AT BEDTIME mupirocin 2 % ointment (BACTROBAN) TOPICAL TID melatonin 3 mg tab(s) 3 mg ORAL DAILY (8 PM) diclofenac 1 % 4 g topical gel (VOLTAREN) 4 g TOPICAL QID ondansetron (PF) 4 mg injection (ZOFRAN) 4 mg INTRAVENOUS q 6 H PRN bisacodyl 10 mg suppository (DULCOLAX) 10 mg RECTAL DAILY PRN prochlorperazine 5 mg injection (COMPAZINE) 5 mg INTRAVENOUS q 6 H PRN gabapentin 800 mg cap(s) (NEURONTIN) 800 mg ORAL q 6 H oxyCODONE IR 15 mg tab(s) (ROXICODONE) 15 mg ORAL q 4 H PRN fentaNYL 50 mcg/mL 50 mcg injection (SUBLIMAZE) 50 mcg INTRAVENOUS q 2 H PRN senna-docusate 8.6-50 mg 1 tablet (SENNA-S) 1 tablet ORAL BID polyethylene glycol 3350 17 g packet 17 g ORAL DAILY PRN HYDROmorphone (PWD) 1 mg patient's own pump - MAR placeholder INTRATHECAL CONTINUOUS traZODone 100 mg tab(s) (DESYREL) 100 mg ORAL AT BEDTIME NaCl 0.9% iv flush bag 20 mL INTRAVENOUS PRN Labs: Recent Labs 04/20/24 0358 04/19/24 0123 CREAT 0.49* -- WBC 8.00 -- HB 8.0* 8.3* HCT 25.2* -- PLT 370 -- Physical Exam: GENERAL: No distress, Alert, non toxic NEURO: AANDOx3, CN II-XII grossly intact HEENT: normocephalic, atraumatic LUNGS: Unlabored breathing, equal chest rise bilaterally CARDIAC: RRR ABDOMEN: Soft, non-tender, non-distended EXTREMITIES:No edema SKIN: Skin color, texture, turgor normal, No rashes or lesions R ischial pressure/wound scant amount serous drainage, wound bed with good granulation tissue ASSESSMENT AND PLAN: Assessment Active Hospital Problems Diagnosis Date Noted Soft tissue abscess 04/14/2024 Primary hypertension 04/17/2024 History of depression 04/17/2024 Post-op pain 04/15/2024 Pressure injury of right ischium, unstageable ([facility]) 04/14/2024 Pressure injury of right perineal ischial region, unstageable ([facility]) 04/14/2024 Chronic constipation 04/14/2024 Pressure injury of dorsum of left foot, stage 2 ([facility]) 09/22/2022 Chronic pain Paraplegia ([facility]) 12/29/2001 Assessment: 73 year old female with PMHx of CAD, CHF, depression, hemorrhoids, osteoporosis, constipation, intrathecal pain pump, transverse myelitis causing LE paralysis, s/p lap augmentation cystoplasty with ileoileal catheterizable stoma at the umbilicus for neurogenic bladder. CTAP from [facility] showed right sided 8.5x8.3cm subcutaneous abscess extending into the right ischial rectal fossa along with extensive soft tissue edema/cellulitis. This finding is new since last CT scan 09/2022. EGS consulted for debridement of right side hip wound. 04/14 -S/P OR for debridement 04/16 IR unable to aspirate , suspected necrotic tissue. 04/19 S/P OR debridement Wound debrided to muscle. Wound dimensions 11 cm x 7 cm Plan: Right Ischial Pressure Ulcer with abscess -S/P OR for debridement on 04/14 - S/P OR debridement 04/19 - Continue wound care / Dressing changes BID - Off loading - Nutrition / increase protein intake for wound healing - On Ancef. - ID following - Rest of care management per Primary -No plans for further surgical intervention. Surgery will sign-off at this time. Please call with questions or concerns Discussed with attending: (more content not included)... Normal [facility] NUTRITIONon 04-21-2024 NUTRITION HNO ID: [id number] Author: LUIS MO RD Service: Nutrition Therapy Author Type: Registered Dietitian Type: Nutrition Filed: 04/21/2024 14:12 Note Text: INITIAL ASSESSMENT SERVICE DATE: 04/21/2024 SERVICE TIME: 1130 Nutrition Assessment: Recommended Malnutrition Diagnosis: Severe Protein-Calorie Malnutrition In the context of: Acute Illness or Injury Based on: Subcutaneous Fat Loss, Muscle Loss, Insufficient Energy Intake Nutrition Diagnosis: Problem: Increased nutrient needs Related to: Wound healing As evidenced by: Medical condition Care Plan: Continue current diet Supplements: Ensure Plus High Protein Vitamins and Minerals: Zinc Monitor and Evaluation: Meet greater than 75% of estimated needs, Monitor bowel function, Monitor fluid/electrolyte balance, Monitor labs, I/Os, vital signs, weight Discharge Recommendations: Diet;Oral Supplements Diet: High calorie/high protein Oral Supplements: Ensure plus or equivalent HPI: 73 yr old female with h/o LE paralysis 2/2 transverse myelitis admitted for mgmt of multiple sacral wounds. Intake History: Nutrition Intake Prior to Admission: Less than 75% estimated energy needs greater than 7 days. Chronically has a poor appetite. Eats no more than twice daily. No ONS. Knows she needs to eat more focusing on protein intake. Discussed options for meal planning at home. Dosing Weight: 48 kg (105 lb 13.1 oz) (feel bedscale wt is inaccurate) Dosing Weight Type: Fowler body weight Estimated kilocalorie needs: 1440-1680kcals Calorie Calculation Method: 30-35 kcals/kg Estimated protein needs (grams): 72-96gms Grams protein determined by: 1.5 - 2.0 g/kg Diet Orders (From admission, onward) Start Ordered 04/19/24 1215 DIET REGULAR START NOW 04/19/24 1203 Anthropometrics: Height: 154.9 cm (5' 1) Weight: 54.1 kg (119 lb 4.3 oz) Usual Weight: (stable at 110lb lately) Usual Weight Obtained From: Patient Body mass index is 22.54 kg/m?. Weight change percentage over time: minimal wt hx for review Weight Change: Unable to determine Physical Exam: Subcutaneous fat loss: Subcutaneous Fat Loss Assessed Orbital: Slightly dark circles, somewhat hollow look (Mod) Upper Arm (Triceps): Some depth to pinch, not ample fat (Mod) Muscle loss: Muscle Loss Assessed Temporalis: Slight depression (Mod) Clavicle: More prominent bone, less prominent muscle (Mod) Acromion: Acromion process slightly protrudes (Mod) Scapula: Slight depression, bone slightly show (Mod) Interosseous (Hand): Slight depression of muscle (Mod) Quadricep: Mild depression on inner thigh, kneecap more prominent (Mod) Gastrocnemius: Not well-developed muscle (Mod) Potential micronutrient deficiency: Skin Functional Status: Not related to malnutrition status Potential Signs of Inflammation: Imaging studies, Chronic condition, Microbiologic cultures Transverse myelitits/CHF MNT Billing: $ Initial Assessment: 1-15 minutes SIGNATURE: Luis Mo RD PATIENT NAME: Aleena Andrea DATE: April 21, 2024 TIME: 9:38 AM Normal [facility] CBC panel Auto (Bld)on 04-20 Erythrocyte distribution width (RBC) [Ratio] 16.0 % High 11.5-15.0 [facility] Comment on above: Order Comment: Shayy weiss Type: BLOOD SPECIMEN Ordering Facility: [facility] Address: [address] [place] [address] Performed By: #### 5 8410-2 #### [facility] CLIA [id number] [address] [place] Hematocrit (Bld) [Volume fraction] 25.2 % Low 36.0-46.0 [facility] Comment on above: Order Comment: Shayy weiss Type: BLOOD SPECIMEN Ordering Facility: [facility] Address: [address] [place] [address] Performed By: #### 5 8410-2 #### [facility] CLIA [id number] [address] [place] [address] [place] Hemoglobin (Bld) [Mass/Vol] 8.0 g/dL Low 11.5-15.5 [facility] Comment on above: Order Comment: Shayy weiss Type: BLOOD SPECIMEN Ordering Facility: [facility] Address: [address] [place] [address] Performed By: #### 5 8410-2 #### [facility] CLIA [id number] [address] MCH (RBC) [Entitic mass] 32.7 pg Normal 26.0-34.0 [facility] Comment on above: Order Comment: Speci men Type: BLOOD SPECIMEN Ordering Facility: [facility] Address: [address] [place] [address] Performed By: #### 5 8410-2 #### [facility] CLIA [id number] [address] MCHC (RBC) [Mass/Vol] 31.7 g/dL Normal 30.5-36.0 [facility] Comment on above: Order Comment: Speci men Type: BLOOD SPECIMEN Ordering Facility: [facility] Address: [address] [place] [address] Performed By: #### 5 8410-2 #### [facility] CLIA [id number] [address] MCV (RBC) [Entitic vol] 102.9 fL High 80.0-100.0 [facility] Comment on above: Order Comment: Speci men Type: BLOOD SPECIMEN Ordering Facility: [facility] Address: [address] [place] [address] Performed By: #### 5 8410-2 #### [facility] CLIA [id number] [address] Nucleated RBC (Bld) [#/Vol] 10*3/uL Normal <0.01 [facility] Comment on above: Order Comment: Speci men Type: BLOOD SPECIMEN Ordering Facility: [facility] Address: [address] [place] [address] Performed By: #### 5 8410-2 #### [facility] CLIA [id number] [address] OF [facility] Platelet mean volume (Bld) [Entitic vol] 9.4 fL Normal 9.0-12.7 [facility] Comment on above: Order Comment: Speci men Type: BLOOD SPECIMEN Ordering Facility: [facility] Address: [address] [place] [address] Performed By: #### 5 8410-2 #### [facility] CLIA [id number] [address] OF [facility] Platelets (Bld) [#/Vol] 370 10*3/uL Normal 150-400 [facility] Comment on above: Order Comment: Speci men Type: BLOOD SPECIMEN Ordering Facility: [facility] Address: [address] [place] [address] Performed By: #### 5 8410-2 #### [facility] CLIA [id number] [address] OF [facility] RBC (Bld) [#/Vol] 2.45 10*6/uL Low 3.90-5.20 [facility] Comment on above: Order Comment: Speci men Type: BLOOD SPECIMEN Ordering Facility: [facility] Address: [address] [place] [address] Performed By: #### 5 8410-2 #### [facility] CLIA [id number] [address] WBC (Bld) [#/Vol] 8.00 10*3/uL Normal 3.70-11.00 [facility] Comment on above: Order Comment: Speci men Type: BLOOD SPECIMEN Ordering Facility: [facility] Address: [address] [place] [address] Performed By: #### 5 8410-2 #### [facility] CLIA [id number] [address] CONSULT PROGon 04-20-2024 CONSULT PROG HNO ID: [id number] Author: KYLEE VANCE APRN.LIAISON OFFICER Service: General Surgery Author Type: Nurse Practitioner Type: Consult Progress Note Filed: 04/20/2024 17:33 Note Text: Emergency General Surgery Progress Note SERVICE DATE: April 20, 2024 Emergency General Surgery Service Pager: For questions or concerns Mon-Fri 6a-5p please page [phone]. After 5pm and on Weekends and Holidays, please page [phone] if in ICU or [phone] if on RNF. SUBJECTIVE: EGS is following for Right ischial pressure ulcer. Tolerated 2nd debridement 04/19 Her pain is well controlled Needing to change dressing due to saturation. No leukocytosis or fevers. OBJECTIVE: Vitals: Temp (24hrs), Av.6 ?C (97.8 ?F), Min:36.3 ?C (97.3 ?F), Max:37 ?C (98.6 ?F) BP 122/66 Pulse 66 Temp 36.3 ?C (97.3 ?F) (Oral) Resp 18 Ht 154.9 cm (5' 1) Wt 54.1 kg (119 lb 4.3 oz) LMP 08/16/2002 SpO2 98% BMI 22.54 kg/m? O2 Therapy: Room Air IANDO: Date 04/19/24 07 - 04/20/24 0659 04/20/24 07 - 04/21/24 0659 Shift 0660-2712 3105-9300 4090-3328 24 Hour Total 2515-0361 4922-1667 1315-7046 24 Hour Total INTAKE PO 120 240 350 710 PO 120 240 350 710 IV 600 657 565 9229 Volume (mL) (piperacillin-tazobac araujo iv piggyback 3.375 g in dextrose (iso-osmotic) 50 mL (ZOSYN)) 50 50 100 200 Volume (mL) (vancomycin 750 mg in D5W 250 mL Vial-Bag (VANCOCIN)) 250 250 500 Volume (mL) (lactated ringers iv infusion) 300 300 Shift Total 720 352 528 4664 OUTPUT Urine 6562 315 7525 2200 2200 Straight cath (ml) 4746 503 6860 2200 2200 # of BMs Number of BMs 1 x 1 x 1 x 1 x Blood 20 20 Estimated Blood loss 20 20 Shift Total 20 9644 158 0034 2200 2200 Weight (kg) 54.1 54.1 54.1 54.1 54.1 54.1 54.1 54.1 MEDICATIONS Current Facility-Administered Medications Medication Dose Route Frequency ceFAZolin iv piggyback 2 g in D5W (iso-osmotic) 100 mL (ANCEF) 2 g INTRAVENOUS q 8 HR enoxaparin 30 mg injection (LOVENOX) 30 mg SUBCUTANEOUS q 24 HR cloNIDine HCl 0.1 mg tab(s) (CATAPRES) 0.1 mg ORAL AT BEDTIME mupirocin 2 % ointment (BACTROBAN) TOPICAL TID melatonin 3 mg tab(s) 3 mg ORAL DAILY (8 PM) diclofenac 1 % 4 g topical gel (VOLTAREN) 4 g TOPICAL QID ondansetron (PF) 4 mg injection (ZOFRAN) 4 mg INTRAVENOUS q 6 H PRN bisacodyl 10 mg suppository (DULCOLAX) 10 mg RECTAL DAILY PRN prochlorperazine 5 mg injection (COMPAZINE) 5 mg INTRAVENOUS q 6 H PRN gabapentin 800 mg cap(s) (NEURONTIN) 800 mg ORAL q 6 H oxyCODONE IR 15 mg tab(s) (ROXICODONE) 15 mg ORAL q 4 H PRN fentaNYL 50 mcg/mL 50 mcg injection (SUBLIMAZE) 50 mcg INTRAVENOUS q 2 H PRN senna-docusate 8.6-50 mg 1 tablet (SENNA-S) 1 tablet ORAL BID polyethylene glycol 3350 17 g packet 17 g ORAL DAILY PRN HYDROmorphone (PWD) 1 mg patient's own pump - [facility] placeholder INTRATHECAL CONTINUOUS traZODone 100 mg tab(s) (DESYREL) 100 mg ORAL AT BEDTIME NaCl 0.9% iv flush bag 20 mL INTRAVENOUS PRN Labs: Recent Labs 04/20/24 0358 04/19/24 0123 CREAT 0.49* -- WBC 8.00 -- HB 8.0* 8.3* HCT 25.2* -- PLT 370 -- Physical Exam: GENERAL: No distress, Alert, non toxic NEURO: AANDOx3, CN II-XII grossly intact HEENT: normocephalic, atraumatic LUNGS: Unlabored breathing, equal chest rise bilaterally CARDIAC: RRR ABDOMEN: Soft, non-tender, non-distended EXTREMITIES:No edema SKIN: Skin color, texture, turgor normal, No rashes or lesions R ischial pressure/wound small amount serous drainage, wound bed with good granulation tissue w/ some sloughing. ASSESSMENT AND PLAN: Assessment Active Hospital Problems Diagnosis Date Noted Soft tissue abscess 04/14/2024 Primary hypertension 04/17/2024 History of depression 04/17/2024 Post-op pain 04/15/2024 Pressure injury of right ischium, unstageable ([facility]) 04/14/2024 Pressure injury of right perineal ischial region, unstageable ([facility]) 04/14/2024 Chronic constipation 04/14/2024 Pressure injury of dorsum of left foot, stage 2 ([facility]) 09/22/2022 Chronic pain Paraplegia ([facility]) 12/29/2001 Assessment: 73 year old female with PMHx of CAD, CHF, depression, hemorrhoids, osteoporosis, constipation, intrathecal pain pump, transverse myelitis causing LE paralysis, s/p lap augmentation cystoplasty with ileoileal catheterizable stoma at the umbilicus for neurogenic bladder. CTAP from [facility] showed right sided 8.5x8.3cm subcutaneous abscess extending into the right ischial rectal fossa along with extensive soft tissue edema/cellulitis. This finding is new since last CT scan 09/2022. EGS consulted for debridement of right side hip wound. 04/14 -S/P OR for debridement 04/16 IR unable to aspirate , suspected necrotic tissue. 04/19 S/P OR debridement Wound debrided to muscle. Wound dimensions 11 cm x 7 cm Plan: Right Ischial Pressure Ulcer with abscess -S/P OR for debridement on 04/14 - S/P OR debridement 04/19 - Continue wound care / Dressing changes BID - Off loading - Nutrition / increase protein intake (more content not included)... Normal [facility] CONSULT PROG HNO ID: [id number] Author: JIM TORRES MD Service: Infectious Disease Author Type: Physician Type: Consult Progress Note Filed: 04/20/2024 16:46 Note Text: PROGRESS NOTE INFECTIOUS DISEASE BRIEF SUMMARY: 73 year old female Transverse myelitis, neurogenic bladder status post lap augmentation cystoplasty with ileal ileal right sacral,, CAD, hypertension, chronic sacral decubitus ulcer, chronic pain on intrathecal pain pump presented to [facility] 04/13/2024 for 1 week right hip pain with progressive worsening wound. CT pelvis showed large right sided subcutaneous abscess collection extending into the right ischiorectal. With extensive pelvic soft tissue edema/cellulitis ASSESSMENT: R large subcutaneous abscess -> R ischiorectal s/p debridement 04/14/24 + 04/19/24 + IR aspiration - cx MSSA CoNS Bcx x 1 contaminant Estimated Creatinine Clearance: 78.3 mL/min (A) (based on SCr of 0.49 mg/dL (L)). RECOMMENDATIONS: - change zosyn to cefazolin - agree w dc vanco - CoPAT in chart (chart review ->Encounters -> (uncheck Hide Add'l Visitis) --> CoPAT Start). For print version, please click on Note Details and then print. Communicated with primary team Subjective SUBJECTIVE: Interval Events: 04/18 feeling better, pain present. Stated that her pain pump will be running out. 04/20 feeling well, procedure went well yesterday, no bone noted on op note but deep Active Antimicrobials (From admission, onward) Start Stop 04/16/24 2100 mupirocin 2 % ointment (BACTROBAN) TOPICAL, 3 TIMES DAILY 04/21/24205804/14/24 1000 piperacillin-tazobact am iv piggyback 3.375 g in dextrose (iso-osmotic) 50 mL (ZOSYN) 3.375 g, INTRAVENOUS, EVERY 6 HOURS -- Immunosuppressant: None Objective Medications: Current Facility-Administered Medications Medication Dose Route Frequency NaCl 0.9% iv flush bag 20 mL INTRAVENOUS PRN piperacillin-tazobact am iv piggyback 3.375 g in dextrose (iso-osmotic) 50 mL (ZOSYN) 3.375 g INTRAVENOUS q 6 H gabapentin 800 mg cap(s) (NEURONTIN) 800 mg ORAL q 6 H oxyCODONE IR 15 mg tab(s) (ROXICODONE) 15 mg ORAL q 4 H PRN fentaNYL 50 mcg/mL 50 mcg injection (SUBLIMAZE) 50 mcg INTRAVENOUS q 2 H PRN senna-docusate 8.6-50 mg 1 tablet (SENNA-S) 1 tablet ORAL BID polyethylene glycol 3350 17 g packet 17 g ORAL DAILY PRN HYDROmorphone (PWD) 1 mg patient's own pump - [facility] placeholder INTRATHECAL CONTINUOUS traZODone 100 mg tab(s) (DESYREL) 100 mg ORAL AT BEDTIME melatonin 3 mg tab(s) 3 mg ORAL DAILY (8 PM) diclofenac 1 % 4 g topical gel (VOLTAREN) 4 g TOPICAL QID ondansetron (PF) 4 mg injection (ZOFRAN) 4 mg INTRAVENOUS q 6 H PRN bisacodyl 10 mg suppository (DULCOLAX) 10 mg RECTAL DAILY PRN prochlorperazine 5 mg injection (COMPAZINE) 5 mg INTRAVENOUS q 6 H PRN cloNIDine HCl 0.1 mg tab(s) (CATAPRES) 0.1 mg ORAL AT BEDTIME mupirocin 2 % ointment (BACTROBAN) TOPICAL TID enoxaparin 30 mg injection (LOVENOX) 30 mg SUBCUTANEOUS q 24 HR lidocaine 10 mg/mL (1 %) 10-100 mg injection (XYLOCAINE) 1-10 mL INTRADERMAL DIRECTED PRN OBJECTIVE: Physical Exam: BP 112/68 Pulse 70 Temp (Src) 97.6 (Oral) Resp 16 Ht 5' 1 (1.55m) Wt 119 lb 4.3 oz (54.1kg) SpO2 95% LMP 08/16/2002 BMI 22.55 kg/(m2). O2 Therapy: Room Air Lines, Drains, and Airways Line Duration Peripheral 04/14/24 [facility] Short Left Hand 20 Gauge 6 days GENERAL APPEARANCE: Comfortable NEURO: Awake, alert, no involuntary motions Lab data: WBC (k/uL) Date Value 04/20/2024 8.00 04/17/2024 8.34 04/16/2024 6.27 04/15/2024 8.17 04/13/2024 11.57 12/04/2003 3.26 07/10/2003 6.15 05/24/2003 7.60 05/24/2003 Unable to assay. Specimen incorrectly identified. 05/24/2003 7.71 Platelet Count Date Value 04/20/2024 370 k/uL 04/17/2024 445 k/uL 04/16/2024 465 k/uL 04/15/2024 594 k/uL 04/13/2024 617 k/uL 12/04/2003 104 K/uL 07/10/2003 197 K/uL 05/24/2003 188 K/uL 05/24/2003 Unable to assay. Specimen incorrectly identified. K/uL 05/24/2003 186 K/uL Creatinine (mg/dL) Date Value 04/20/2024 0.49 04/17/2024 0.49 04/16/2024 0.48 04/15/2024 0.38 04/13/2024 0.36 05/30/2005 0.6 12/05/2003 0.5 12/04/2003 0.5 07/10/2003 0.4 05/24/2003 0.4 Vancomycin (ug/mL) Date Value 04/17/2024 16.7 04/15/2024 10.8 AST (U/L) Date Value 04/13/2024 16 05/30/2005 41 ALT (U/L) Date Value 04/13/2024 9 05/30/2005 38 DATA: Diagnostic Tests Reviewed for Today's Visit: Most recent labs Most recent imaging Microbiology data: Positive Micro-30 Days Procedure Component Value Units Date/Time WOUND CULTURE AND GRAM STAIN [[id number]] (Abnormal) (Susceptibility) Collected: 04/16/24 1132 Order Status: Completed Specimen: Aspirate/Fine Needle Aspirate from Abscess (Specify site in comment) Updated: 04/19/24 1457 Culture, Wound Rare Staphylococcus aureus Gram Stain No organisms seen Many Polymorphonuclear leukocytes Many Red Blood Cells Agnieszka (more content not included)... Normal [facility] CONSULT PROG HNO ID: [id number] Author: DANNIE LANDEROS RPh Service: Pharmacy Author Type: Pharmacist Type: Consult Progress Note Filed: 04/20/2024 08:21 Note Text: PHARMACY VANCOMYCIN DOSING NOTE Patient Name: Aleena Andrea Admission Date: 04/13/2024 Date of Consult: 04/20/2024 Time of Consult: 8:19 AM RECOMMENDATIONS/PLAN: Pharmacy consulted for vancomycin dosing for Aleena Andrea, a 73 year old female. Vancomycin therapy has been discontinued. Vancomycin level(s) have been discontinued: Yes. The pharmacy vancomycin dosing service will sign off. Thank you for allowing us to participate in this patient's care. Please contact pharmacy if there are questions. Dannie Landeros [facility] Normal [facility] CREATININE BLDon 04-20-2024 Creatinine [Mass/Vol] 0.49 mg/dL Low 0.58-0.96 [facility] Comment on above: Order Comment: Speci men Type: BLOOD SPECIMEN Ordering Facility: [facility] Address: [address] [place] [id number] Performed By: #### C RET1 #### [facility] CLIA [id number] [address] [place] [address] [place] Creatinine and Glomerular filtration rate.predicted panel (S/P/Bld) 100 mL/min/1.73m??? Normal >=60 [facility] Comment on above: Order Comment: Speci men Type: BLOOD SPECIMEN Ordering Facility: [facility] Address: [address] [place] [address] Result Comment: Kristina mated Glomerular Filtration Rate (eGFR) is calculated using the 2020 CKD-EPI creatinine equation. This equation utilizes serum creatinine, sex, and age as parameters. The creatinine assay has traceable calibration to isotope dilution-mass spectrometry. Refer to KDIGO guidelines for clinical interpretation. In patients with unstable renal function, e.g. those with acute kidney injury, the eGFR may not accurately reflect actual GFR. Performed By: #### C RET1 #### [facility] CLIA [id number] [address] PT EDon 04-20-2024 PT ED HNO ID: [id number] Author: YUKO PUTNAM RN Service: PICC Team Author Type: Registered Nurse Type: Patient Education Filed: 04/20/2024 09:44 Note Text: AMBULATORY PATIENT EDUCATION VASCULAR ACCESS TEAM TOPIC: Peripherally Inserted Central Catheter READINESS TO LEARN COGNITIVE ABILITY: Alert and oriented MOTIVATION TO LEARN: Interested FAMILY SUPPORT: Unable to assess - Family not present INSTRUCTION PROVIDED TO: Patient PATIENT LEARNS BEST BY: Multiple Methods FACTORS AFFECTING LEARNING:None PHYSICAL LIMITATIONS AFFECTING LEARNING: Fatigue LEARNING RESPONSE METHOD OF INSTRUCTION: Individual instruction Written instruction - handouts Verbal instruction PATIENT / FAMILY RESPONSE: Verbalizes understanding of pre-procedure instructions Verbalizes understanding of post-procedure instructions FOLLOW-UP PLAN: Contact information given. SUPPLEMENTAL MATERIAL: PICC Line brochureSEE PATIENT EDUCATION SECTION OF THE EMR Normal [facility] ANES POSTPROC EVALon 024 ANES POSTPROC EVAL HNO ID: [id number] Author: MEGAN MAYA MD Service: Anesthesiology Author Type: Physician Type: Anesthesia Postprocedure Evaluation Filed: 04/19/2024 14:08 Note Text: POST ANESTHESIA EVALUATION NOTE : 1950 Procedure Summary Date: 04/19/24 Room / Location: [place] OR OR Anesthesia Start: 1046 Anesthesia Stop: 1156 Procedure: DEBRIDEMENT AND EXCISION SACRAL PRESSURE ULCER (Right: Sacrum) Diagnosis: Sacral ulcer (HCC) (Sacral ulcer (HCC) [L98.429]) Surgeons: Jennifer Jean MD Responsible Provider: Megan Maya MD Anesthesia Type: general ASA Status: Not recorded Anesthesia Type: general Airway Type: LMA Last Vitals Vitals Value Taken Time BP 124/60 04/19/24 1245 Temp 36 ?C (96.8 ?F) 04/19/24 1215 HR SpO2 59 04/19/24 1256 Resp 16 04/19/24 1256 SpO2 99 % 04/19/24 1256 Vitals shown include unfiled device data. Post Anesthesia Patient Status Anticipated Disposition: inpatient floor planned admission. Neurological Status: aware and responsive. Pulmonary Status: breathing comfortably on room air Airway Control: returned to baseline unsupported. Cardiovascular Status: stable. Pain Management: clinically adequate Postoperative Hydration: acceptable. Intraoperative Events: no significant anesthesia events Post Operative Nausea/Vomiting Status: no significant post operative nausea or vomiting Recommendation: further care per PACU/ICU/floor team. Anesthesia Observations No Documentation SIGNATURE: Megan Maya MD PATIENT NAME: Aleena Andrea DATE: April 19, 2024 TIME: 2:07 PM CSN: [id number] [facility] ANES PRE-OPon 04-19-2024 ANES PRE-OP HNO ID: [id number] Author: MEGAN MAYA MD Service: Anesthesiology Author Type: Physician Type: Anesthesia Preprocedure Evaluation Filed: 04/19/2024 14:09 Note Text: ANESTHESIOLOGY DAY OF SURGERY NOTE : 1950 Procedure Information Date/Time: 04/19/24 1045 Procedure: DEBRIDEMENT AND EXCISION SACRAL PRESSURE ULCER (Right: Sacrum) Location: [place] [facility] 17 / [place] Surgeons: Jennifer Jean MD Estimated body mass index is 22.54 kg/m? as calculated from the following: Height as of this encounter: 154.9 cm (5' 1). Weight as of this encounter: 54.1 kg (119 lb 4.3 oz). Most recent hematocrit and potassium results: Hematocrit 24.9 04/17/2024 Potassium 4.4 04/17/2024 Relevant Problems CARDIO (+) CAD (coronary artery disease) (+) CHF (congestive heart failure) (HCC) (+) Migraine, unspecified, without mention of intractable migraine without mention of status migrainosus (+) Primary hypertension NEURO-PSYCH (+) History of depression (+) Migraine, unspecified, without mention of intractable migraine without mention of status migrainosus I - PHYSICAL EVALUATION AIRWAY Patient intubated: No. Tracheostomy tube not present Mallampati: II. TM distance: >3 FB. Neck ROM: full ROM without neurological symptoms. Mouth opening: adequate. Short neck: no. Thick neck: no DENTAL Dental findings: teeth intact and chipped. Additional exam findings: no II - ANESTHESIA PLAN ASA Score: 3 Anesthetic Plan: general Airway type: LMA NPO Status: adequate Beta Kenan Monitoring Plan Monitoring plan: standard ASA. Post Procedure Analgesic Plan Postoperative analgesic plan: parenteral or oral opioids and multimodal analgesia. Informed Consent Anesthetic risks, benefits, alternatives, personnel and consent discussed: yes. Patient / Responsible Libertarian agrees to proceed: yes Patient / Surrogate agrees to blood products: Yes Significant changes in the patient condition since the History and Physical, not otherwise documented in primary service progress note: no. No vitals data found for the desired time range. Facility-Administered Medications as of 04/19/2024 Medication Dose Route Frequency [Transfer Hold] lidocaine 10 mg/mL (1 %) 10-100 mg injection (XYLOCAINE) 1-10 mL INTRADERMAL DIRECTED PRN [Transfer Hold] enoxaparin 30 mg injection (LOVENOX) 30 mg SUBCUTANEOUS q 24 HR [Transfer Hold] cloNIDine HCl 0.1 mg tab(s) (CATAPRES) 0.1 mg ORAL AT BEDTIME [Transfer Hold] mupirocin 2 % ointment (BACTROBAN) TOPICAL TID [Transfer Hold] melatonin 3 mg tab(s) 3 mg ORAL DAILY (8 PM) [Transfer Hold] diclofenac 1 % 4 g topical gel (VOLTAREN) 4 g TOPICAL QID [Transfer Hold] ondansetron (PF) 4 mg injection (ZOFRAN) 4 mg INTRAVENOUS q 6 H PRN [Transfer Hold] bisacodyl 10 mg suppository (DULCOLAX) 10 mg RECTAL DAILY PRN [Transfer Hold] prochlorperazine 5 mg injection (COMPAZINE) 5 mg INTRAVENOUS q 6 H PRN [COMPLETED] NaCl 0.9% iv bolus 500 mL 500 mL INTRAVENOUS ONCE [COMPLETED] NaCl 0.9% iv bolus 500 mL 500 mL INTRAVENOUS ONCE [COMPLETED] lactated ringers 500 mL iv bolus 500 mL INTRAVENOUS ONCE [Transfer Hold] vancomycin dosing and monitoring per pharmacy OTHER As Directed [Transfer Hold] piperacillin-tazobact am iv piggyback 3.375 g in dextrose (iso-osmotic) 50 mL (ZOSYN) 3.375 g INTRAVENOUS q 6 H [Transfer Hold] vancomycin 750 mg in D5W 250 mL Vial-Bag (VANCOCIN) 0.015 g/kg/dose INTRAVENOUS q 12 HR [Transfer Hold] gabapentin 800 mg cap(s) (NEURONTIN) 800 mg ORAL q 6 H [Transfer Hold] oxyCODONE IR 15 mg tab(s) (ROXICODONE) 15 mg ORAL q 4 H PRN [Transfer Hold] fentaNYL 50 mcg/mL 50 mcg injection (SUBLIMAZE) 50 mcg INTRAVENOUS q 2 H PRN [Transfer Hold] senna-docusate 8.6-50 mg 1 tablet (SENNA-S) 1 tablet ORAL BID [Transfer Hold] polyethylene glycol 3350 17 g packet 17 g ORAL DAILY PRN [Transfer Hold] HYDROmorphone (PWD) 1 mg patient's own pump - MAR placeholder INTRATHECAL CONTINUOUS [Transfer Hold] traZODone 100 mg tab(s) (DESYREL) 100 mg ORAL AT BEDTIME [Transfer Hold] NaCl 0.9% iv flush bag 20 mL INTRAVENOUS PRN Outpatient Medications as of 04/19/2024 Medication Sig oxycodone HCl (OXYCODONE ORAL) Take 15 mg by mouth four times daily. bisacodyl EC (DULCOLAX) 5 mg EC tablet Take 2 tablets by mouth once daily as needed. DULoxetine (CYMBALTA) 30 mg capsule Take 90 mg by mouth once daily. acetaminophen (TYLENOL) 325 mg tablet Take 650 mg by mouth every 6 hours as needed (with oxycodone). gabapentin (NEURONTIN) 800 mg tablet Take 800 [...] 100 mg by mouth daily at bedtime. NAPROXEN ORAL Take 375 mg by mouth t (more content not included)... Normal [facility] CONSULT PROGon 04-19-2024 CONSULT PROG HNO ID: [id number] Author: FANI ALMODOVAR RPh Service: Hospital Medicine Author Type: Pharmacist Type: Consult Progress Note Filed: 04/19/2024 08:05 Note Text: PHARMACY VANCOMYCIN DOSING NOTE Patient Name: Aleena Andrea Admission Date: 04/13/2024 Date of Consult: 04/19/2024 Time of Consult: 8:02 AM Indication: Skin/soft tissue Goal Range: 10-20 mcg/mL RECOMMENDATIONS/PLAN: Pharmacy consulted for vancomycin dosing for Aleena Andrea, a 73 year old female. 1. Patient is currently ordered Vancomycin 750 mg IV q12h. Today is day 7 of therapy. 2. The most recent vancomycin level was 16.7 mcg/mL drawn at 0906 on 04/17. This is a 12 hour level on the 5th day of therapy. 3. The present dose of vancomycin is the recommended dosage for this patient at this time. Continue therapy as prescribed. 4. The next vancomycin level has been ordered for 04/20 at 0900. (Completed). SCr also ordered. 5. Cultures pending pt will be discharged with CoPAT for ceftraixone vs vancomycin for 4 weeks based on the results. We will follow patient renal function, vancomycin levels and doses with you during the course of therapy. Additional recommendations will appear in follow up notes. If you have any questions, please contact Fani Almodovar, PharmD at [phone]. Age: [age] year old Allergies: ALLERGIES Allergen Reactions Ziconotide Other: See Comments Aka prialt Last 3 Encounter Wt Readings: Date: Wt: 04/13/2024 54.1 kg (119 lb 4.3 oz) 10/10/2022 44.5 kg (98 lb) 09/19/2022 53 kg (116 lb 13.5 oz) Last 1 Encounter Ht Readings: Date: Ht: 04/13/2024 154.9 cm (5' 1) CrCl: 78 mL/min Temp (24hrs), Av.8 ?C (98.3 ?F), Min:36.5 ?C (97.7 ?F), Max:37.1 ?C (98.7 ?F) - Current Temp: 36.5 ?C (97.7 ?F) Labs BUN (mg/dL) Date Value 04/17/2024 10 04/16/2024 8 04/15/2024 9 Creatinine (mg/dL) Date Value 04/17/2024 0.49 (L) 04/16/2024 0.48 (L) 04/15/2024 0.38 (L) WBC (k/uL) Date Value 04/17/2024 8.34 04/16/2024 6.27 04/15/2024 8.17 Vancomycin Levels: Vancomycin (ug/mL) Date/Time Value 04/17/2024 0906 16.7 04/15/2024 0908 10.8 Fani Almodovar, CharlineD, [facility] CONSULT PROG HNO ID: [id number] Author: KYLEE VANCE APRN.LIAISON OFFICER Service: General Surgery Author Type: Nurse Practitioner Type: Consult Progress Note Filed: 04/19/2024 16:53 Note Text: Emergency General Surgery Progress Note SERVICE DATE: April 19, 2024 Emergency General Surgery Service Pager: For questions or concerns Mon-Fri 6a-5p please page [phone]. After 5pm and on Weekends and Holidays, please page [phone] if in ICU or [phone] if on RNF. SUBJECTIVE: EGS is following for Right ischial pressure ulcer. Today, Aleena Andrea voices no complaints. Denies fever/chills, or pain. She is aware of scheduled debridement. OBJECTIVE: Vitals: Temp (24hrs), Av.4 ?C (97.6 ?F), Min:36 ?C (96.8 ?F), Max:36.9 ?C (98.5 ?F) BP 157/82 Pulse 82 Temp 36.5 ?C (97.7 ?F) (Oral) Resp 18 Ht 154.9 cm (5' 1) Wt 54.1 kg (119 lb 4.3 oz) LMP 08/16/2002 SpO2 96% BMI 22.54 kg/m? O2 Therapy: Room Air IANDO: Date 04/18/24 1500 - 04/19/24 0659 04/19/24 0700 - 04/20/24 0659 Shift 1264-2644 5516-1704 24 Hour Total 7684-0066 2435-2226 0461-5673 24 Hour Total INTAKE PO 240 718 120 120 PO 240 718 120 120 IV 50 350 600 600 Volume (mL) (piperacillin-tazobac araujo iv piggyback 3.375 g in dextrose (iso-osmotic) 50 mL (ZOSYN)) 50 100 50 50 Volume (mL) (vancomycin 750 mg in D5W 250 mL Vial-Bag (VANCOCIN)) 250 250 250 Volume (mL) (lactated ringers iv infusion) 300 300 Shift Total 290 1068 720 720 OUTPUT Urine 2600 800 4600 Void (ml) 1200 Straight cath (ml) 2600 800 3400 Blood 20 20 Estimated Blood loss 20 20 Shift Total 2600 800 4600 20 20 Weight (kg) 54.1 54.1 54.1 54.1 54.1 54.1 54.1 MEDICATIONS Current Facility-Administered Medications Medication Dose Route Frequency lidocaine 10 mg/mL (1 %) 10-100 mg injection (XYLOCAINE) 1-10 mL INTRADERMAL DIRECTED PRN enoxaparin 30 mg injection (LOVENOX) 30 mg SUBCUTANEOUS q 24 HR cloNIDine HCl 0.1 mg tab(s) (CATAPRES) 0.1 mg ORAL AT BEDTIME mupirocin 2 % ointment (BACTROBAN) TOPICAL TID melatonin 3 mg tab(s) 3 mg ORAL DAILY (8 PM) diclofenac 1 % 4 g topical gel (VOLTAREN) 4 g TOPICAL QID ondansetron (PF) 4 mg injection (ZOFRAN) 4 mg INTRAVENOUS q 6 H PRN bisacodyl 10 mg suppository (DULCOLAX) 10 mg RECTAL DAILY PRN prochlorperazine 5 mg injection (COMPAZINE) 5 mg INTRAVENOUS q 6 H PRN vancomycin dosing and monitoring per pharmacy OTHER As Directed piperacillin-tazobact am iv piggyback 3.375 g in dextrose (iso-osmotic) 50 mL (ZOSYN) 3.375 g INTRAVENOUS q 6 H vancomycin 750 mg in D5W 250 mL Vial-Bag (VANCOCIN) 0.015 g/kg/dose INTRAVENOUS q 12 HR gabapentin 800 mg cap(s) (NEURONTIN) 800 mg ORAL q 6 H oxyCODONE IR 15 mg tab(s) (ROXICODONE) 15 mg ORAL q 4 H PRN fentaNYL 50 mcg/mL 50 mcg injection (SUBLIMAZE) 50 mcg INTRAVENOUS q 2 H PRN senna-docusate 8.6-50 mg 1 tablet (SENNA-S) 1 tablet ORAL BID polyethylene glycol 3350 17 g packet 17 g ORAL DAILY PRN HYDROmorphone (PWD) 1 mg patient's own pump - [facility] placeholder INTRATHECAL CONTINUOUS traZODone 100 mg tab(s) (DESYREL) 100 mg ORAL AT BEDTIME NaCl 0.9% iv flush bag 20 mL INTRAVENOUS PRN Labs: Recent Labs 04/19/24 0123 04/17/24 0342 NA -- 135* K -- 4.4 CHLOR -- 100 CO2 -- 27 BUN -- 10 CREAT -- 0.49* GLUC -- 97 ANION -- 8 CA -- 8.4* WBC -- 8.34 HB 8.3* 8.0* HCT -- 24.9* PLT -- 445* Physical Exam: GENERAL: No distress, Alert, non toxic NEURO: AANDOx3, CN II-XII grossly intact HEENT: normocephalic, atraumatic LUNGS: Unlabored breathing, equal chest rise bilaterally CARDIAC: RRR ABDOMEN: Soft, non-tender, non-distended EXTREMITIES:No edema SKIN: Skin color, texture, turgor normal, No rashes or lesions R ischial pressure ulcer mod foul / purulent discharge. ASSESSMENT AND PLAN: Assessment Active Hospital Problems Diagnosis Date Noted Soft tissue abscess 04/14/2024 Primary hypertension 04/17/2024 History of depression 04/17/2024 Post-op pain 04/15/2024 Pressure injury of right ischium, unstageable ([facility]) 04/14/2024 Pressure injury of right perineal ischial region, unstageable ([facility]) 04/14/2024 Chronic constipation 04/14/2024 Pressure injury of dorsum of left foot, stage 2 ([facility]) 09/22/2022 Chronic pain Paraplegia ([facility]) 12/29/2001 Assessment: 73 year old female with PMHx of CAD, CHF, depression, hemorrhoids, osteoporosis, constipation, intrathecal pain pump, transverse myelitis causing LE paralysis, s/p lap augmentation cystoplasty with ileoileal catheterizable stoma at the umbilicus for neurogenic bladder. CTAP from [facility] showed right sided 8.5x8.3cm subcutaneous abscess extending into the right ischial rectal fossa along with extensive soft tissue edema/cellulitis. This finding is new since last CT scan 09/2022. EGS consulted for debridement of right side hip wound. Plan: Right Ischial Pressure Ulcer with abscess -S/P OR for debridement on 04/14 - 04/16 IR unable to aspirate , suspected necrotic tissue - on Zosyn and (more content not included)... Normal [facility] Hgb Bld-mCncon 04-19-2024 Hemoglobin (Bld) [Mass/Vol] 8.3 g/dL Low 11.5-15.5 [facility] Comment on above: Order Comment: Speci men Type: BLOOD SPECIMEN Ordering Facility: [facility] Address: [address] [place] [address] Performed By: #### C RET1 #### [facility] CLIA [id number] [address] STATES OF [facility] OPERATIVE NOon 04-19-2024 OPERATIVE NO HNO ID: [id number] Author: JENNIFER JEAN MD Service: General Surgery Author Type: Resident Type: Operative Report Filed: 04/19/2024 15:37 Note Text: Attestation with edits by Jennifer Jean MD at 04/19/2024 3:37 PM Attending Note I evaluated the patient and personally participated in the alvarez components. I agree with the resident's findings and plan as documented and have discussed the case and management of the patient's care with the resident. Wound debrided to muscle. Wound dimensions 11 cm x 7 cm Signature: Jennifer Jean MD Date: 04/19/2024 Time: 3:35 PM OPERATIVE/PROCEDURE REPORT LOG ID: [id number] SURGERY/PROCEDURE DATE: 04/19/2024 INCISION/PROCEDURE START TIME: 11:12 AM INCISION CLOSE/PROCEDURE END TIME: 11:40 AM SURGEON(S)/PROCEDURAL IST(S) AND LABOR GANG SUPERVISOR(S): Surgeons and Role: * Jennifer Jean MD - Primary * Moni Worley MD - Resident - Assisting No Additional Staff SURGERY/PROCEDURE(S): Debridement of right ischial pressure ulcer. ANESTHESIA: General SURGERY/PROCEDURE DETAILS: Patient is a 73 year old female with PMHx of CAD, CHF, depression, hemorrhoids, osteoporosis, constipation, intrathecal pain pump, transverse myelitis causing LE paralysis, s/p lap augmentation cystoplasty with ileoileal catheterizable stoma at the umbilicus for neurogenic bladder who presented for hip pain and progressive right hip/sacral wounds with an abscess. The patient under went a debridement on 04/14/24. She was noted to have a concern for an abscess and had an attempt at drain placement by intervention radiology without success and return of necrotic tissue. Given these findings she was offered another debridement. She was made aware of the risks (bleeding, infection, damage to surrounding structures) and consented. After a pre-operative huddle the patient was taken to the operating room. General anesthesia was induced. Appropriate DVT Ppx and Antibiotics were given. Patient prepped and draped in sterile fashion. A time out performed. The patient's wound was inspected. There were some loculations noted deep, medially in the wound with purulent output. There were necrotic tissue noted on the superior aspect of the wound which was sharply excised until health bleeding tissue was encountered. The incision was extended some superiorly to get to the deep tissue which was excised. Afterwards the wound was irrigated and the hemostasis was achieved. The wound was packed with a wet kerlex and dressed with an ABD. The patient was extubated and taken to PACU in stable condition. Sponge and instrument counts correct. PRE-OP/PRE-PROCEDURE DIAGNOSIS: Right ischial infected pressure ulcer POST-OP/POST-PROCEDUR E DIAGNOSIS: Same as Preop ESTIMATED BLOOD LOSS: 25 mls SPECIMENS: None IMPLANTABLE DEVICES: NONE DRAINS: None COMPLICATIONS: None CLOSURE TECHNIQUE: Non-primary PARTICIPATION IN SURGERY/PROCEDURE: Resident performed the procedure, under direct supervision and the remainder of the procedure was performed by the primary surgeon/proceduralist with assistance. SIGNATURE: Moni Worley MD PATIENT NAME: Aleena Andrea DATE: April 19, 2024 TIME: 2:03 PM Normal [facility] CONSULT PROGon 04-18-2024 CONSULT PROG HNO ID: [id number] Author: JIM TORRES MD Service: Infectious Disease Author Type: Physician Type: Consult Progress Note Filed: 04/18/2024 16:59 Note Text: PROGRESS NOTE INFECTIOUS DISEASE BRIEF SUMMARY: 73 year old female Transverse myelitis, neurogenic bladder status post lap augmentation cystoplasty with ileal ileal right sacral,, CAD, hypertension, chronic sacral decubitus ulcer, chronic pain on intrathecal pain pump presented to [facility] 04/13/2024 for 1 week right hip pain with progressive worsening wound. CT pelvis showed large right sided subcutaneous abscess collection extending into the right ischiorectal. With extensive pelvic soft tissue edema/cellulitis ASSESSMENT: R large subcutaneous abscess -> R ischiorectal s/p debridement 04/14/24 + IR aspiration - cx M_SA CoNS Bcx x 1 contaminant Estimated Creatinine Clearance: 78.3 mL/min (A) (based on SCr of 0.49 mg/dL (L)). RECOMMENDATIONS: - cont zosyn + vanco for now - planning for CoPAT , ?cefriaxone vs vanco, duration TBD ~4 weeks - aware further debridement tomorrow Communicated with primary team Subjective SUBJECTIVE: Interval Events: 04/18 feeling better, pain present. Stated that her pain pump will be running out. Active Antimicrobials (From admission, onward) Start Stop 04/16/242099 mupirocin 2 % ointment (BACTROBAN) TOPICAL, 3 TIMES DAILY 04/21/24205804/14/24 1000 vancomycin dosing and monitoring per pharmacy OTHER, DIRECTED -- 04/14/24 1000 piperacillin-tazobact am iv piggyback 3.375 g in dextrose (iso-osmotic) 50 mL (ZOSYN) 3.375 g, INTRAVENOUS, EVERY 6 HOURS -- 04/14/24 1000 vancomycin 750 mg in D5W 250 mL Vial-Bag (VANCOCIN) 0.015 g/kg/dose, INTRAVENOUS, EVERY 12 HOURS -- Immunosuppressant: None Objective Medications: Current Facility-Administered Medications Medication Dose Route Frequency NaCl 0.9% iv flush bag 20 mL INTRAVENOUS PRN vancomycin dosing and monitoring per pharmacy OTHER As Directed piperacillin-tazobact am iv piggyback 3.375 g in dextrose (iso-osmotic) 50 mL (ZOSYN) 3.375 g INTRAVENOUS q 6 H vancomycin 750 mg in D5W 250 mL Vial-Bag (VANCOCIN) 0.015 g/kg/dose INTRAVENOUS q 12 HR gabapentin 800 mg cap(s) (NEURONTIN) 800 mg ORAL q 6 H oxyCODONE IR 15 mg tab(s) (ROXICODONE) 15 mg ORAL q 4 H PRN fentaNYL 50 mcg/mL 50 mcg injection (SUBLIMAZE) 50 mcg INTRAVENOUS q 2 H PRN senna-docusate 8.6-50 mg 1 tablet (SENNA-S) 1 tablet ORAL BID polyethylene glycol 3350 17 g packet 17 g ORAL DAILY PRN HYDROmorphone (PWD) 1 mg patient's own pump - MAR placeholder INTRATHECAL CONTINUOUS traZODone 100 mg tab(s) (DESYREL) 100 mg ORAL AT BEDTIME melatonin 3 mg tab(s) 3 mg ORAL DAILY (8 PM) diclofenac 1 % 4 g topical gel (VOLTAREN) 4 g TOPICAL QID ondansetron (PF) 4 mg injection (ZOFRAN) 4 mg INTRAVENOUS q 6 H PRN bisacodyl 10 mg suppository (DULCOLAX) 10 mg RECTAL DAILY PRN prochlorperazine 5 mg injection (COMPAZINE) 5 mg INTRAVENOUS q 6 H PRN cloNIDine HCl 0.1 mg tab(s) (CATAPRES) 0.1 mg ORAL AT BEDTIME mupirocin 2 % ointment (BACTROBAN) TOPICAL TID enoxaparin 30 mg injection (LOVENOX) 30 mg SUBCUTANEOUS q 24 HR OBJECTIVE: Physical Exam: BP 126/82 Pulse 65 Temp (Src) 97.3 (Oral) Resp 18 Ht 5' 1 (1.55m) Wt 119 lb 4.3 oz (54.1kg) SpO2 97% LMP 08/16/2002 BMI 22.55 kg/(m2). O2 Therapy: Room Air Lines, Drains, and Airways Line Duration Peripheral 04/14/24 [facility] Short Left Hand 20 Gauge 4 days GENERAL APPEARANCE: Comfortable SKIN: No rashes or lesions LUNGS: Normal breath sounds, clear to auscultation, no wheezes, or crackles HEART:RRR, no murmurs ABDOMEN: Soft, non tender, BS+ EXTREMITIES: No edema or tenderness NEURO: Awake, alert, no involuntary motions Lab data: WBC (k/uL) Date Value 04/17/2024 8.34 04/16/2024 6.27 04/15/2024 8.17 04/13/2024 11.57 09/28/2022 4.49 12/04/2003 3.26 07/10/2003 6.15 05/24/2003 7.60 05/24/2003 Unable to assay. Specimen incorrectly identified. 05/24/2003 7.71 Platelet Count Date Value 04/17/2024 445 k/uL 04/16/2024 465 k/uL 04/15/2024 594 k/uL 04/13/2024 617 k/uL 09/28/2022 285 k/uL 12/04/2003 104 K/uL 07/10/2003 197 K/uL 05/24/2003 188 K/uL 05/24/2003 Unable to assay. Specimen incorrectly identified. K/uL 05/24/2003 186 K/uL Creatinine (mg/dL) Date Value 04/17/2024 0.49 04/16/2024 0.48 04/15/2024 0.38 04/13/2024 0.36 09/28/2022 0.43 05/30/2005 0.6 12/05/2003 0.5 12/04/2003 0.5 07/10/2003 0.4 05/24/2003 0.4 Vancomycin (ug/mL) Date Value 04/17/2024 16.7 04/15/2024 10.8 AST (U/L) Date Value 04/13/2024 16 05/30/2005 41 ALT (U/L) Date Value 04/13/2024 9 05/30/2005 38 DATA: Diagnostic Tests Reviewed for Today's Visit: Most recent labs Most recent imaging Microbiology data: Positive Micro-30 Days Procedure Component Value Units Date/Time WOUND CULTURE AND GRAM STAIN [[id number]] (Abnormal) Collected: (more content not included)... Normal [facility] Culture, Anaerobic Any Sourc nel 04-18-2024 CUAN RIGHT No anaerobic bacteria isolated. Normal [facility] Comment on above: Performed By: #### M 100.4001, M100.3000, M100.1999 ####[facility] [id number] [place], [address] Basic metabolic 2000 panelon 04-17-2024 Anion gap [Moles/Vol] 8 mmol/L Normal 8-15 [facility] Comment on above: Order Comment: Speci men Type: BLOOD SPECIMEN Ordering Facility: [facility] Address: [address] [place] [address] Performed By: #### 5 8410-2 #### [facility] CLIA [id number] 1 [place] [address] [place] Calcium [Mass/Vol] 8.4 mg/dL Low 8.5-10.2 [facility] Comment on above: Order Comment: Speci men Type: BLOOD SPECIMEN Ordering Facility: [facility] Address: [address] [place] [address] Performed By: #### 5 8410-2 #### [facility] CLIA [id number] [address] [place] [address] [place] Chloride [Moles/Vol] 100 mmol/L Normal 98-107 [facility] Comment on above: Order Comment: Speci men Type: BLOOD SPECIMEN Ordering Facility: [facility] Address: [address] [place] [address] Performed By: #### 5 8410-2 #### [facility] CLIA [id number] 1 [place] [address] [place] CO2 [Moles/Vol] 27 mmol/L Normal 22-30 [facility] Comment on above: Order Comment: Speci men Type: BLOOD SPECIMEN Ordering Facility: [facility] Address: [address] [place] [address] Performed By: #### 5 8410-2 #### [facility] CLIA [id number] [address] Creatinine [Mass/Vol] 0.49 mg/dL Low 0.58-0.96 [facility] Comment on above: Order Comment: Shayy abhishek Type: BLOOD SPECIMEN Ordering Facility: [facility] Address: [address] [place] [address] Performed By: #### 5 8410-2 #### [facility] CLIA [id number] [address] Creatinine and Glomerular filtration rate.predicted panel (S/P/Bld) 100 mL/min/1.73m??? Normal >=60 [facility] Comment on above: Order Comment: Shayy abhishek Type: BLOOD SPECIMEN Ordering Facility: [facility] Address: [address] [place] [address] Result Comment: Kristina mated Glomerular Filtration Rate (eGFR) is calculated using the 2020 CKD-EPI creatinine equation. This equation utilizes serum creatinine, sex, and age as parameters. The creatinine assay has traceable calibration to isotope dilution-mass spectrometry. Refer to KDIGO guidelines for clinical interpretation. In patients with unstable renal function, e.g. those with acute kidney injury, the eGFR may not accurately reflect actual GFR. Performed By: #### 5 8410-2 #### [facility] CLIA [id number] [address] Glucose [Mass/Vol] 97 mg/dL Normal 74-99 [facility] Comment on above: Order Comment: Pollyantony weiss Type: BLOOD SPECIMEN Ordering Facility: [facility] Address: [address] [place] [address] Result Comment: The [place] Diabetes Association (ADA) provides guidance for cutoff values for fasting glucose and random glucose. The ADA defines fasting as no caloric intake for at least 8 hours. Fasting plasma glucose results between 100 to 125 mg/dL indicate increased risk for diabetes (prediabetes). Fasting plasma glucose results greater than or equal to 126 mg/dL meet the criteria for diagnosis of diabetes. In the absence of unequivocal hyperglycemia, results should be confirmed by repeat testing. In a patient with classic symptoms of hyperglycemia or hyperglycemic crisis, random plasma glucose results greater than or equal to 200 mg/dL meet the criteria for diagnosis of diabetes. Reference: Standards of Medical Care in Diabetes 2016, [place] [employer]. Diabetes Care. 2016.39(Suppl 1). Performed By: #### 5 8410-2 #### [facility] CLIA [id number] [address] Potassium [Moles/Vol] 4.4 mmol/L Normal 3.7-5.1 [facility] Comment on above: Order Comment: Pollyi men Type: BLOOD SPECIMEN Ordering Facility: [facility] Address: [address] [place] [address] Performed By: #### 5 8410-2 #### [facility] CLIA [id number] [address] Sodium [Moles/Vol] 135 mmol/L Low 136-144 [facility] Comment on above: Order Comment: Pollyi men Type: BLOOD SPECIMEN Ordering Facility: [facility] Address: [address] [place] [address] Performed By: #### 5 8410-2 #### [facility] CLIA [id number] [address] Urea nitrogen [Mass/Vol] 10 mg/dL Normal 7-21 [facility] Comment on above: Order Comment: Pollyi men Type: BLOOD SPECIMEN Ordering Facility: [facility] Address: [address] [place] [address] Performed By: #### 5 8410-2 #### [facility] CLIA [id number] [address] CBC panel Auto (Bld)on 04-17 Erythrocyte distribution width (RBC) [Ratio] 16.0 % High 11.5-15.0 [facility] Comment on above: Order Comment: Speci men Type: BLOOD SPECIMEN Ordering Facility: [facility] Address: [address] [place] [address] Performed By: #### 5 8410-2 #### [facility] CLIA [id number] [address] [facility] Hematocrit (Bld) [Volume fraction] 24.9 % Low 36.0-46.0 [facility] Comment on above: Order Comment: Speci men Type: BLOOD SPECIMEN Ordering Facility: [facility] Address: [facility] [place] [address] Performed By: #### 5 8410-2 #### [facility] CLIA [id number] [address] [place] Hemoglobin (Bld) [Mass/Vol] 8.0 g/dL Low 11.5-15.5 [facility] Comment on above: Order Comment: Speci men Type: BLOOD SPECIMEN Ordering Facility: [facility] Address: [address] [place] [address] Performed By: #### 5 8410-2 #### [facility] CLIA [id number] [address] MCH (RBC) [Entitic mass] 32.5 pg Normal 26.0-34.0 [facility] Comment on above: Order Comment: Speci men Type: BLOOD SPECIMEN Ordering Facility: [facility] Address: [address] [place] [address] Performed By: #### 5 8410-2 #### [facility] CLIA [id number] [address] [place] MCHC (RBC) [Mass/Vol] 32.1 g/dL Normal 30.5-36.0 [facility] Comment on above: Order Comment: Speci men Type: BLOOD SPECIMEN Ordering Facility: [facility] Address: [facility] [place] [address] Performed By: #### 5 8410-2 #### [facility] CLIA [id number] [address] [place] MCV (RBC) [Entitic vol] 101.2 fL High 80.0-100.0 [facility] Comment on above: Order Comment: Speci men Type: BLOOD SPECIMEN Ordering Facility: [facility] Address: [address] [place] [address] Performed By: #### 5 8410-2 #### [facility] CLIA [id number] [address] [place] Nucleated RBC (Bld) [#/Vol] 10*3/uL Normal <0.01 [facility] Comment on above: Order Comment: Speci men Type: BLOOD SPECIMEN Ordering Facility: [facility] Address: [address] [place] [address] Performed By: #### 5 8410-2 #### [facility] CLIA [id number] [address] [place] Platelet mean volume (Bld) [Entitic vol] 9.1 fL Normal 9.0-12.7 [facility] Comment on above: Order Comment: Speci men Type: BLOOD SPECIMEN Ordering Facility: [facility] Address: [address] [place] [address] Performed By: #### 5 8410-2 #### [facility] CLIA [id number] [address] [place] Platelets (Bld) [#/Vol] 445 10*3/uL High 150-400 [facility] Comment on above: Order Comment: Speci men Type: BLOOD SPECIMEN Ordering Facility: [facility] Address: [address] [place] [address] Performed By: #### 5 8410-2 #### [facility] CLIA [id number] [address] [place] RBC (Bld) [#/Vol] 2.46 10*6/uL Low 3.90-5.20 [facility] Comment on above: Order Comment: Speci men Type: BLOOD SPECIMEN Ordering Facility: [facility] Address: [address] [place] [address] Performed By: #### 5 8410-2 #### [facility] CLIA [id number] [address] [place] WBC (Bld) [#/Vol] 8.34 10*3/uL Normal 3.70-11.00 [facility] Comment on above: Order Comment: Speci men Type: BLOOD SPECIMEN Ordering Facility: [facility] Address: [address] [place] [place] [id number] Performed By: #### 5 8410-2 #### [facility] CLIA [id number] [address] OF [facility] CONSULT PROGon 04-17-2024 CONSULT PROG HNO ID: [id number] Author: FANI ALMODOVAR RPh Service: Pharmacy Author Type: Pharmacist Type: Consult Progress Note Filed: 04/17/2024 10:34 Note Text: PHARMACY VANCOMYCIN DOSING NOTE Patient Name: Aleena Andrea Admission Date: 04/13/2024 Date of Consult: 04/17/2024 Time of Consult: 10:31 AM Indication: Skin/soft tissue Goal Range: 10-20 mcg/mL RECOMMENDATIONS/PLAN: Pharmacy consulted for vancomycin dosing for Aleena Andrea, a 73 year old female. 1. Patient is currently ordered Vancomycin 750 mg IV q12h. Today is day 5 of therapy. 2. The most recent vancomycin level was 16.7 mcg/mL drawn at 0906 on 04/17. This is a 12 hour level on the 5th day of therapy. 3. The present dose of vancomycin is the recommended dosage for this patient at this time. Continue therapy as prescribed. 4. The next vancomycin level has been ordered for 04/20 at 0900. (Completed) We will follow patient renal function, vancomycin levels and doses with you during the course of therapy. Additional recommendations will appear in follow up notes. If you have any questions, please contact Charline MontanezD at [phone]. 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 Last 3 Encounter Wt Readings: Date: Wt: 04/13/2024 54.1 kg (119 lb 4.3 oz) 10/10/2022 44.5 kg (98 lb) 09/19/2022 53 kg (116 lb 13.5 oz) Last 1 Encounter Ht Readings: Date: Ht: 04/13/2024 154.9 cm (5' 1) CrCl: 78 mL/min Temp (24hrs), Av.7 ?C (98 ?F), Min:36.4 ?C (97.5 ?F), Max:37.2 ?C (98.9 ?F) - Current Temp: 36.7 ?C (98.1 ?F) Labs BUN (mg/dL) Date Value 04/17/2024 10 04/16/2024 8 04/15/2024 9 Creatinine (mg/dL) Date Value 04/17/2024 0.49 (L) 04/16/2024 0.48 (L) 04/15/2024 0.38 (L) WBC (k/uL) Date Value 04/17/2024 8.34 04/16/2024 6.27 04/15/2024 8.17 Vancomycin Levels: Vancomycin (ug/mL) Date/Time Value 04/17/2024 0906 16.7 04/15/2024 0908 10.8 Fani Almodovar, PharmD, [facility] Normal [facility] Vancomycin random [Mass/Vol] on 04-17-2024 Vancomycin [Mass/Vol] 16.7 ug/mL Normal 10.0-20.0 [facility] Comment on above: Order Comment: Speci men Type: BLOOD SPECIMEN Ordering Facility: [facility] Address: [address] [place] [address] Result Comment: Refe rence ranges and high/low indicator flags are provided as general guidelines only. The treating physician must determine appropriate target levels/dosing based on the specific clinical situation. Performed By: #### 4 091-5 #### [facility] CLIA [id number] 1 [place] [address] [place] BRIEF OP NOTon 04-16-2024 BRIEF OP NOT HNO ID: [id number] Author: ENRIQUE OLSEN MD Service: Interventional Radiology Author Type: Physician Type: Brief Op Note Filed: 04/16/2024 11:26 Note Text: BRIEF OPERATIVE / PROCEDURE NOTE LOG ID: [id number] SURGERY/PROCEDURE DATE: 04/16/2024 INCISION/PROCEDURE START TIME: 11:02 AM INCISION CLOSE/PROCEDURE END TIME: 11:22 AM SURGEON(S)/PROCEDURAL IST(S) AND LABOR GANG SUPERVISOR(S): Surgeons and Role: * Enrique Olsen MD, MD - Primary No Additional Staff SURGERY/PROCEDURE(S): Aspiration of fluid from pelvic collection ANESTHESIA: Procedural Sedation FINDINGS: Only 2 cc was able to be removed. There was NO large abscess (despite the CT appearance). The drain was placed in multiple locations, however, it did not yield any more fluid. After removing the drain, thick necrotic tissue was stuck to the side holes. I suspect that CT appearance is compatible with tissue necrosis. ESTIMATED BLOOD LOSS: Minimal SPECIMENS: Sent to the lab COMPLICATIONS: None CLOSURE TECHNIQUE: Primary PRE-OP/PRE-PROCEDURE DIAGNOSIS: Infection POST-OP/POST-PROCEDUR E DIAGNOSIS: Same as Preop SIGNATURE: Enrique Olsen MD PATIENT NAME: Aleena Andrea DATE: April 16, 2024 TIME: 11:23 AM [facility] Bacteria Wnd Culton 04-16-20 Bacteria identified Cx Nom (Wound) ORGANISM ID: 1 Rare Staphylococcus aureus GRAM STAIN: No organisms seen Many Polymorphonuclear leukocytes Many Red Blood Cells ORGANISM ID: 1 (STAPHYLOCOCCUS AUREUS) ------ ANTIBIOTIC INTERPRETATION JULIA STATUS REFERENCE RANGE ------ Oxacillin S <=0.25 F Susceptible <=2 , Intermediate >2 , Resistant >2 Oxacillin-susceptible staphylococci are susceptible to other penicilllinase-stable penicillins, beta-lactam/beta-lact amase inhibitor combinations, anti-staphylococcal cephems, and carbapenems. Gentamicin S <=2 F Susceptible <=4 , Intermediate >4 , Resistant >8 Erythromycin S <=0.5 F Susceptible <=0.5 , Intermediate >.5 , Resistant >4 Clindamycin S <=0.5 F Susceptible <=0.5 , Intermediate >.5 , Resistant >2 Trimeth sulfameth S <=1 F Vancomycin S 1 F Susceptible <=2 , Intermediate >2 , Resistant >=16 Rifampin S <=0.5 F Susceptible <=1 , Intermediate >1 , Resistant >2 Rifampin should not be used alone for antimicrobial therapy. Tetracycline S <=0.5 F Susceptible <=4 , Intermediate >4 , Resistant >8 Abnormal [facility] Comment on above: Performed By: #### 6 462-6 ####[facility] [id number] [place] [address] [place] Basic metabolic 2000 panelon 04-16-2024 Anion gap [Moles/Vol] 7 mmol/L Low 8-15 [facility] Comment on above: Order Comment: Speci men Type: BLOOD SPECIMENOrdering Facility: [facility] Address: [address] [place] [address] Performed By: #### 2 4321-2 ####[facility] [id number] [place] [address] [place] Calcium [Mass/Vol] 8.2 mg/dL Low 8.5-10.2 [facility] Comment on above: Order Comment: Speci men Type: BLOOD SPECIMENOrdering Facility: [facility] Address: [address] [place] [address] Performed By: #### 2 4321-2 ####[facility] [id number] [address] [place] Chloride [Moles/Vol] 105 mmol/L Normal 98-107 [facility] Comment on above: Order Comment: Speci men Type: BLOOD SPECIMENOrdering Facility: [facility] Address: [address] [place] [address] Performed By: #### 2 4321-2 ####[facility] [id number] [address] CO2 [Moles/Vol] 27 mmol/L Normal 22-30 [facility] Comment on above: Order Comment: Speci men Type: BLOOD SPECIMENOrdering Facility: [facility] Address: [address] [place] [address] Performed By: #### 2 4321-2 ####[facility] [id number] [address] Creatinine [Mass/Vol] 0.48 mg/dL Low 0.58-0.96 [facility] Comment on above: Order Comment: Speci men Type: BLOOD SPECIMENOrdering Facility: [facility] Address: [address] [place] [address] Performed By: #### 2 4321-2 ####[facility] [id number] [address] Creatinine and Glomerular filtration rate.predicted panel (S/P/Bld) 101 mL/min/1.73m??? Normal >=60 [facility] Comment on above: Order Comment: Speci men Type: BLOOD SPECIMENOrdering Facility: [facility] Address: [address] [place] [address] Result Comment: Kristina mated Glomerular Filtration Rate (eGFR) is calculated using the 2020 CKD-EPI creatinine equation. This equation utilizes serum creatinine, sex, and age as parameters. The creatinine assay has traceable calibration to isotope dilution-mass spectrometry. Refer to KDIGO guidelines for clinical interpretation. In patients with unstable renal function, e.g. those with acute kidney injury, the eGFR may not accurately reflect actual GFR. Performed By: #### 2 4321-2 ####[facility] [id number] [address] Glucose [Mass/Vol] 86 mg/dL Normal 74-99 [facility] Comment on above: Order Comment: Speci men Type: BLOOD SPECIMENOrdering Facility: [facility] Address: [address] [place] [address] Result Comment: The [place] Diabetes Association (ADA) provides guidance for cutoff values for fasting glucose and random glucose. The ADA defines fasting as no caloric intake for at least 8 hours. Fasting plasma glucose results between 100 to 125 mg/dL indicate increased risk for diabetes (prediabetes). Fasting plasma glucose results greater than or equal to 126 mg/dL meet the criteria for diagnosis of diabetes. In the absence of unequivocal hyperglycemia, results should be confirmed by repeat testing. In a patient with classic symptoms of hyperglycemia or hyperglycemic crisis, random plasma glucose results greater than or equal to 200 mg/dL meet the criteria for diagnosis of diabetes. Reference: Standards of Medical Care in Diabetes 2016, [place] [employer] Association. Diabetes Care. 2016.39(Suppl 1). Performed By: #### 2 4321-2 ####[facility]IA [id number] [place] [address] [place] Potassium [Moles/Vol] 4.5 mmol/L Normal 3.7-5.1 [facility] Comment on above: Order Comment: Speci men Type: BLOOD SPECIMENOrdering Facility: [facility] Address: [address] [place] [address] Performed By: #### 2 1-2 ####[facility]ORYCLIA [id number] [place] [address] [place] Sodium [Moles/Vol] 139 mmol/L Normal 136-144 [facility] Comment on above: Order Comment: Speci men Type: BLOOD SPECIMENOrdering Facility: [facility] Address: [address] [place] [address] Performed By: #### 2 4321-2 ####[facility]ORYCLIA [id number] [place] [address] [place] Urea nitrogen [Mass/Vol] 8 mg/dL Normal 7-21 [facility] Comment on above: Order Comment: Speci men Type: BLOOD SPECIMENOrdering Facility: [facility] Address: [address] [place] [address] Performed By: #### 2 4321-2 ####[facility]ORYCLIA [id number] [address] CBC panel Auto (Bld)on 04-16 Erythrocyte distribution width (RBC) [Ratio] 16.5 % High 11.5-15.0 [facility] Comment on above: Order Comment: Speci men Type: BLOOD SPECIMEN Ordering Facility: [facility] Address: [address] [place] [address] Performed By: #### 5 8410-2 #### [facility] CLIA [id number] [address] Hematocrit (Bld) [Volume fraction] 23.8 % Low 36.0-46.0 [facility] Comment on above: Order Comment: Speci men Type: BLOOD SPECIMEN Ordering Facility: [facility] Address: [address] [place] [address] Performed By: #### 5 8410-2 #### [facility] CLIA [id number] [address] Hemoglobin (Bld) [Mass/Vol] 7.6 g/dL Low 11.5-15.5 [facility] Comment on above: Order Comment: Speci men Type: BLOOD SPECIMEN Ordering Facility: [facility] Address: [address] [place] [address] Performed By: #### 5 8410-2 #### [facility] CLIA [id number] [address] MCH (RBC) [Entitic mass] 32.6 pg Normal 26.0-34.0 [facility] Comment on above: Order Comment: Speci men Type: BLOOD SPECIMEN Ordering Facility: [facility] Address: [address] [place] [address] Performed By: #### 5 8410-2 #### [facility] CLIA [id number] [address] MCHC (RBC) [Mass/Vol] 31.9 g/dL Normal 30.5-36.0 [facility] Comment on above: Order Comment: Speci men Type: BLOOD SPECIMEN Ordering Facility: [facility] Address: [address] [place] [address] Performed By: #### 5 8410-2 #### [facility] CLIA [id number] [address] MCV (RBC) [Entitic vol] 102.1 fL High 80.0-100.0 [facility] Comment on above: Order Comment: Speci men Type: BLOOD SPECIMEN Ordering Facility: [facility] Address: [address] [place] [address] Performed By: #### 5 8410-2 #### [facility] CLIA [id number] [address] Nucleated RBC (Bld) [#/Vol] 10*3/uL Normal <0.01 [facility] Comment on above: Order Comment: Speci men Type: BLOOD SPECIMEN Ordering Facility: [facility] Address: [address] [place] [address] Performed By: #### 5 8410-2 #### [facility] CLIA [id number] [address] Platelet mean volume (Bld) [Entitic vol] 9.2 fL Normal 9.0-12.7 [facility] Comment on above: Order Comment: Speci men Type: BLOOD SPECIMEN Ordering Facility: [facility] Address: [address] [place] [address] Performed By: #### 5 8410-2 #### [facility] CLIA [id number] [address] [place] Platelets (Bld) [#/Vol] 465 10*3/uL High 150-400 [facility] Comment on above: Order Comment: Speci men Type: BLOOD SPECIMEN Ordering Facility: [facility] Address: [facility] [place] [address] Performed By: #### 5 8410-2 #### [facility] CLIA [id number] [address] [place] RBC (Bld) [#/Vol] 2.33 10*6/uL Low 3.90-5.20 [facility] Comment on above: Order Comment: Pollyantony weiss Type: BLOOD SPECIMEN Ordering Facility: [facility] Address: [address] [place] [address] Performed By: #### 5 8410-2 #### [facility] CLIA [id number] [address] OF [facility] WBC (Bld) [#/Vol] 6.27 10*3/uL Normal 3.70-11.00 [facility] Comment on above: Order Comment: Speci men Type: BLOOD SPECIMEN Ordering Facility: [facility] Address: [address] [place] [address] Performed By: #### 5 8410-2 #### [facility] CLIA [id number] [address] CONSULT PROGon 04-16-2024 CONSULT PROG HNO ID: [id number] Author: CASE ERICKSON MD Service: General Surgery Author Type: Resident Type: Consult Progress Note Filed: 05/15/2024 18:59 Note Text: Attestation signed by Case Erickson MD at 05/15/2024 6:59 PM Attending Note I personally saw and examined the patient. I reviewed the resident's note. I agree with the resident's assessment and plan unless otherwise noted. Signature: Case Erickson MD Emergency General Surgery Progress Note SERVICE DATE: April 16, 2024 Emergency General Surgery Service Pager: For questions or concerns Mon-Fri 6a-5p please page [phone]. After 5pm and on Weekends and Holidays, please page [phone] if in ICU or [phone] if on RNF. SUBJECTIVE: Patient seen this morning on rounds. No acute overnight events. Denies pain. Dressing changed this AM. Tolerating diet DIET NPO OBJECTIVE: Vitals: Temp (24hrs), Av.6 ?C (97.8 ?F), Min:36.3 ?C (97.4 ?F), Max:36.8 ?C (98.3 ?F) BP (!) 88/40 Pulse 60 Temp 36.3 ?C (97.4 ?F) (Oral) Resp 15 Ht 154.9 cm (5' 1) Wt 54.1 kg (119 lb 4.3 oz) LMP 08/16/2002 SpO2 96% BMI 22.54 kg/m? O2 Therapy: Room Air IANDO: Date 04/15/24699 - 04/16/24 0659 04/16/24699 - 04/17/24 0659 Shift 0453-4525 9034-7856 6755-1986 24 Hour Total 4501-8606 5019-7335 5164-0485 24 Hour Total INTAKE PO 240 660 900 PO 240 660 900 Shift Total 240 660 900 OUTPUT Urine 008 546 5818 2800 Void (ml) 121 188 2315 2800 Shift Total 391 116 1116 2800 Weight (kg) 54.1 54.1 54.1 54.1 54.1 54.1 54.1 54.1 MEDICATIONS Current Facility-Administered Medications Medication Dose Route Frequency melatonin 3 mg tab(s) 3 mg ORAL DAILY (8 PM) diclofenac 1 % 4 g topical gel (VOLTAREN) 4 g TOPICAL QID ondansetron (PF) 4 mg injection (ZOFRAN) 4 mg INTRAVENOUS q 6 H PRN bisacodyl 10 mg suppository (DULCOLAX) 10 mg RECTAL DAILY PRN prochlorperazine 5 mg injection (COMPAZINE) 5 mg INTRAVENOUS q 6 H PRN cloNIDine HCl 0.2 mg tab(s) (CATAPRES) 0.2 mg ORAL AT BEDTIME vancomycin dosing and monitoring per pharmacy OTHER As Directed piperacillin-tazobact am iv piggyback 3.375 g in dextrose (iso-osmotic) 50 mL (ZOSYN) 3.375 g INTRAVENOUS q 6 H vancomycin 750 mg in D5W 250 mL Vial-Bag (VANCOCIN) 0.015 g/kg/dose INTRAVENOUS q 12 HR gabapentin 800 mg cap(s) (NEURONTIN) 800 mg ORAL q 6 H oxyCODONE IR 15 mg tab(s) (ROXICODONE) 15 mg ORAL q 4 H PRN fentaNYL 50 mcg/mL 50 mcg injection (SUBLIMAZE) 50 mcg INTRAVENOUS q 2 H PRN senna-docusate 8.6-50 mg 1 tablet (SENNA-S) 1 tablet ORAL BID polyethylene glycol 3350 17 g packet 17 g ORAL DAILY PRN HYDROmorphone (PWD) 1 mg patient's own pump - [facility] placeholder INTRATHECAL CONTINUOUS traZODone 100 mg tab(s) (DESYREL) 100 mg ORAL AT BEDTIME NaCl 0.9% iv flush bag 20 mL INTRAVENOUS PRN Labs: Recent Labs 04/16/24 0824 04/16/24 0621 04/15/24 0652 04/15/24 0126 04/13/24 2335 NA -- 139 -- 132* 131* K -- 4.5 3.7 -- 3.7 CHLOR -- 105 -- 99 95* CO2 -- 27 -- 26 28 BUN -- 8 -- 9 6* CREAT -- 0.48* -- 0.38* 0.36* GLUC -- 86 -- 174* 86 ANION -- 7* -- 7* 8 CA -- 8.2* -- 7.7* 8.2* ALB -- -- -- -- 2.7* AST -- -- -- -- 16 ALT -- -- -- -- 9 ALKPHOS -- -- -- -- 84 TBILI -- -- -- -- 0.2 WBC -- 6.27 -- 8.17 11.57* HB -- 7.6* -- 8.4* 9.0* HCT -- 23.8* -- 25.5* 28.1* PLT -- 465* -- 594* 617* LACT -- -- -- -- 0.6 INR 1.0 -- -- -- -- Physical Exam: GENERAL: No distress, Alert NEURO: AANDOx3, CN II-XII grossly intact HEENT: normocephalic, atraumatic LUNGS: Unlabored breathing, equal chest rise bilaterally CARDIAC: Regular rate, warm and well perfused distal extremities ABDOMEN: Soft, non-tender, non-distended SACRUM: R ischial pressure wound status post debridement w/ healthy appearing granulation tissue on the wound bed EXTREMITIES: GARCIA, No deformities, No edema SKIN: Skin color, texture, turgor normal, No rashes or lesions ASSESSMENT AND PLAN: Assessment Active Hospital Problems Diagnosis Date Noted Soft tissue abscess 04/14/2024 Post-op pain 04/15/2024 Constipation 04/15/2024 Pressure injury of right ischium, unstageable ([facility]) 04/14/2024 Pressure injury of right perineal ischial region, unstageable ([facility]) 04/14/2024 Chronic constipation 04/14/2024 Pressure injury of dorsum of left foot, stage 2 ([facility]) 09/22/2022 Assessment: 73 year old female with PMHx of CAD, CHF, depression, hemorrhoids, osteoporosis, constipation, intrathecal pain pump, transverse myelitis causing LE paralysis, s/p lap augmentation cystoplasty with ileoileal catheterizable stoma at the umbilicus for neurogenic bladder. EGS consulted for debridement of right side hip wound. Hospital Course/Operations/Pro cedures: 04/14/2024 Procedure(s): DEBRIDEMENT AND EXCISION SACRAL PRESSURE ULCER, possible drain placement Pl (more content not included)... Normal [facility] CT ASPIRATION SUBCUT ABSCESS on 04-16-2024 CT ASPIRATION SUBCUT ABSCESS * * *Final Report* * * DATE OF EXAM: Apr 16 2024 11:39AM [facility] 2049 - CT ASPIRATION SUBCUT ABSCESS / PROCEDURE REASON: Abscess * * * * Physician Interpretation * * * * PROCEDURE PERFORMED: CT GUIDED ASPIRATION INDICATION FOR PROCEDURE: The patient is a 73 years old Female who presents with rim-enhancing areas on CT concerning for abscesses. STAFF RADIOLOGIST: Enrique Olsen MD LABOR GANG SUPERVISOR(S): None CONSENT: The risks, benefits, treatment options, potential complications and personnel involved were discussed with the patient. All questions were answered and consent was obtained. The patient indicated she was willing to proceed. The staff physician personally verified consent. TIME OUT: A time out was performed immediately prior to procedure start with the nursing, anesthesia and interventional team, correctly identifying the patient name, date of , procedure, anatomy (including marking of site and side), patient position, procedure consent form, relevant diagnostic and radiology test results, antibiotic administration, safety precautions, and procedure-specific equipment needs. RESULT: PROCEDURE: After performing the time out, the right buttocks was prepped and draped in the usual sterile fashion. Under CT guidance, an 18 gauge trochar needle was advanced into the collection. The celiac total of 2 cc of fluid. Wire was advanced an drain was placed. No further fluid was able to be removed. So, different needle placement was performed. No fluid was obtained in wire did not fill a cavity. This was repeated 2 more times, without further collection of any fluid. So, procedure was terminated and sterile dressing was applied. The procedure was performed by the: attending radiologist, without an assistant director of residence life. The attending radiologist performed the following procedural activities: Entire procedure ANESTHESIA/SEDATION: Conscious sedation was achieved using Versed and Fentanyl intravenously. Local anesthesia was achieved utilizing lidocaine. Vital signs were monitored by the nurse. START TIME/TIMEOUT TIME: 11:02 AM END TIME: 11:22 AM INTRA-SERVICE (SEDATION) TIME: 25 minutes PATIENT MONITORING: The staff physician personally supervised and directed an independent trained observer who assisted in monitoring the patient?s level of consciousness and physiological status throughout the procedure. COMPLICATIONS: None SIGN-OUT DISCUSSION: Completed ESTIMATED BLOOD LOSS: None CONTRAST: None CT Radiation dose: Integrated Dose-length product (DLP) for this visit = 209.79 mGy*cm. CT Dose Reduction Employed: Automated exposure control(AEC) and iterative recon SPECIMENS: 2 cc fluid aspirated and sent to the lab IMPRESSION: Only 2 cc of fluid was able to be aspirated from the right buttocks. There was no large abscess (despite the CT appearance). The drain was placed in multiple locations, however, it did not yield any more fluid. After removing the drain, thick necrotic tissue was stuck to the sideholes (I suspect that CT appearance is compatible with tissue necrosis). Enzyme Chemist: [facility] Transcribe Date/Time: Apr 18 2024 1:33P Dictated by : ENRIQUE OLSEN MD This examination was interpreted and the report reviewed and electronically signed by: ENRIQUE OLSEN MD on Apr 18 2024 1:38PM EST [id number] N Normal [facility] PT panel Coag (PPP)on 2023 INR Coag (PPP) [Relative time] 1.0 {INR} Normal 0.9-1.3 [facility] Comment on above: Order Comment: Shayy weiss Type: BLOOD SPECIMEN Ordering Facility: [facility] Address: [address] [place] [address] Result Comment: Cyndi min K Antagonist (VKA) Therapeutic Range: INR 2 to 3 (Target INR of 2.5) Note: For patients treated with VKA drugs, such as warfarin, the [place] [employer] 2012 Guideline recommends a therapeutic INR range of 2 to 3 (target INR of 2.5). This recommendation includes high-risk patients with antiphospholipid syndrome with previous arterial or venous thromboembolism, current-generation mechanical or bioprosthetic aortic heart valve replacement. Note: Patients with mechanical aortic valve replacement and additional risk factors for thromboembolic events (atrial fibrillation, previous thromboembolism, LV dysfunction, hypercoagulable conditions) or an older generation mechanical AVR (i.e., ball in-Cage) or any mechanical MVR should have a INR therapeutic range of 2.5 to 3.5 (target INR of 3). Jacobtt GH, et al. Chest 2012, 141:7S-47S Ishan RA, et al. [facility] 2017, 70: 252-289 Performed By: #### C RET1 #### [facility] CLIA [id number] [address] [place] PT Coag (PPP) [Time] 11.4 s Normal 9.7-13.0 [facility] Comment on above: Order Comment: Shayy weiss Type: BLOOD SPECIMEN Ordering Facility: [facility] Address: [address] [id number] Performed By: #### C RET1 #### [facility] CLIA [id number] 1 [place] [address] [place] Basic metabolic 2000 panelon 04-15-2024 Anion gap [Moles/Vol] 7 mmol/L Low 8-15 [facility] Comment on above: Order Comment: Shayy weiss Type: BLOOD SPECIMEN Ordering Facility: [facility] Address: [address] [place] [address] Performed By: #### C RET1 #### [facility] CLIA [id number] [address] [place] Calcium [Mass/Vol] 7.7 mg/dL Low 8.5-10.2 [facility] Comment on above: Order Comment: Speci men Type: BLOOD SPECIMEN Ordering Facility: [facility] Address: [address] [place] [address] Performed By: #### C RET1 #### [facility] CLIA [id number] [address] [place] Chloride [Moles/Vol] 99 mmol/L Normal 98-107 [facility] Comment on above: Order Comment: Speci men Type: BLOOD SPECIMEN Ordering Facility: [facility] Address: [address] [place] [address] Performed By: #### C RET1 #### [facility] CLIA [id number] [address] [place] CO2 [Moles/Vol] 26 mmol/L Normal 22-30 [facility] Comment on above: Order Comment: Speci men Type: BLOOD SPECIMEN Ordering Facility: [facility] Address: [address] [place] [address] Performed By: #### C RET1 #### [facility] CLIA [id number] [address] [place] Creatinine [Mass/Vol] 0.38 mg/dL Low 0.58-0.96 [facility] Comment on above: Order Comment: Speci men Type: BLOOD SPECIMEN Ordering Facility: [facility] Address: [address] [place] [address] Performed By: #### C RET1 #### [facility] CLIA [id number] [address] Creatinine and Glomerular filtration rate.predicted panel (S/P/Bld) 107 mL/min/1.73m??? Normal >=60 [facility] Comment on above: Order Comment: Speci men Type: BLOOD SPECIMEN Ordering Facility: [facility] Address: [address] [place] [address] Result Comment: Kristina mated Glomerular Filtration Rate (eGFR) is calculated using the 2020 CKD-EPI creatinine equation. This equation utilizes serum creatinine, sex, and age as parameters. The creatinine assay has traceable calibration to isotope dilution-mass spectrometry. Refer to KDIGO guidelines for clinical interpretation. In patients with unstable renal function, e.g. those with acute kidney injury, the eGFR may not accurately reflect actual GFR. Performed By: #### C RET1 #### [facility] CLIA [id number] 1 [place] [address] [place] Glucose [Mass/Vol] 174 mg/dL High 74-99 [facility] Comment on above: Order Comment: Shayy weiss Type: BLOOD SPECIMEN Ordering Facility: [facility] Address: [address] [place] [address] Result Comment: The [place] Diabetes Association (ADA) provides guidance for cutoff values for fasting glucose and random glucose. The ADA defines fasting as no caloric intake for at least 8 hours. Fasting plasma glucose results between 100 to 125 mg/dL indicate increased risk for diabetes (prediabetes). Fasting plasma glucose results greater than or equal to 126 mg/dL meet the criteria for diagnosis of diabetes. In the absence of unequivocal hyperglycemia, results should be confirmed by repeat testing. In a patient with classic symptoms of hyperglycemia or hyperglycemic crisis, random plasma glucose results greater than or equal to 200 mg/dL meet the criteria for diagnosis of diabetes. Reference: Standards of Medical Care in Diabetes 2016, [place] [employer] Association. Diabetes Care. 2016.39(Suppl 1). Performed By: #### C RET1 #### [facility] CLIA [id number] 1 [place] [address] [place] Potassium [Moles/Vol] Normal [facility] Comment on above: Order Comment: Shayy weiss Type: BLOOD SPECIMEN Ordering Facility: [facility] Address: [address] [place] [address] Result Comment: Unab le to assay due to interference from hemolysis. Suggest reorder as clinically indicated. Performed By: #### C RET1 #### [facility] CLIA [id number] [address] Sodium [Moles/Vol] 132 mmol/L Low 136-144 [facility] Comment on above: Order Comment: Speci men Type: BLOOD SPECIMEN Ordering Facility: [facility] Address: [address] [place] [address] Performed By: #### C RET1 #### [facility] CLIA [id number] [address] [place] [facility] Urea nitrogen [Mass/Vol] 9 mg/dL Normal 7-21 [facility] Comment on above: Order Comment: Speci men Type: BLOOD SPECIMEN Ordering Facility: [facility] Address: [address] [place] [address] Performed By: #### C RET1 #### [facility] CLIA [id number] [address] CBC panel Auto (Bld)on 04-15 Erythrocyte distribution width (RBC) [Ratio] 15.7 % High 11.5-15.0 [facility] Comment on above: Order Comment: Speci men Type: BLOOD SPECIMEN Ordering Facility: [facility] Address: [address] [place] [address] Performed By: #### C RET1 #### [facility] CLIA [id number] [address] Hematocrit (Bld) [Volume fraction] 25.5 % Low 36.0-46.0 [facility] Comment on above: Order Comment: Speci men Type: BLOOD SPECIMEN Ordering Facility: [facility] Address: [address] [place] [address] Performed By: #### C RET1 #### [facility] CLIA [id number] [address] [place] Hemoglobin (Bld) [Mass/Vol] 8.4 g/dL Low 11.5-15.5 [facility] Comment on above: Order Comment: Speci men Type: BLOOD SPECIMEN Ordering Facility: [facility] Address: [facility] [place] [address] Performed By: #### C RET1 #### [facility] CLIA [id number] [address] MCH (RBC) [Entitic mass] 33.3 pg Normal 26.0-34.0 [facility] Comment on above: Order Comment: Speci men Type: BLOOD SPECIMEN Ordering Facility: [facility] Address: [address] [place] [address] Performed By: #### C RET1 #### [facility] CLIA [id number] [address] MCHC (RBC) [Mass/Vol] 32.9 g/dL Normal 30.5-36.0 [facility] Comment on above: Order Comment: Speci men Type: BLOOD SPECIMEN Ordering Facility: [facility] Address: [address] [place] [address] Performed By: #### C RET1 #### [facility] CLIA [id number] [address] MCV (RBC) [Entitic vol] 101.2 fL High 80.0-100.0 [facility] Comment on above: Order Comment: Speci men Type: BLOOD SPECIMEN Ordering Facility: [facility] Address: [address] [place] [address] Performed By: #### C RET1 #### [facility] CLIA [id number] [address] Nucleated RBC (Bld) [#/Vol] 10*3/uL Normal <0.01 [facility] Comment on above: Order Comment: Speci men Type: BLOOD SPECIMEN Ordering Facility: [facility] Address: [address] [place] [address] Performed By: #### C RET1 #### [facility] CLIA [id number] [address] Platelet mean volume (Bld) [Entitic vol] 9.7 fL Normal 9.0-12.7 [facility] Comment on above: Order Comment: Speci men Type: BLOOD SPECIMEN Ordering Facility: [facility] Address: [address] [place] [address] Performed By: #### C RET1 #### [facility] CLIA [id number] [address] Platelets (Bld) [#/Vol] 594 10*3/uL High 150-400 [facility] Comment on above: Order Comment: Speci men Type: BLOOD SPECIMEN Ordering Facility: [facility] Address: [address] [place] [address] Performed By: #### C RET1 #### [facility] CLIA [id number] [address] RBC (Bld) [#/Vol] 2.52 10*6/uL Low 3.90-5.20 [facility] Comment on above: Order Comment: Speci men Type: BLOOD SPECIMEN Ordering Facility: [facility] Address: [address] [place] [address] Performed By: #### C RET1 #### [facility] CLIA [id number] [address] WBC (Bld) [#/Vol] 8.17 10*3/uL Normal 3.70-11.00 [facility] Comment on above: Order Comment: Speci men Type: BLOOD SPECIMEN Ordering Facility: [facility] Address: [address] [place] [address] Performed By: #### C RET1 #### [facility] CLIA [id number] [address] CONSULTon 04-15-2024 CONSULT HNO ID: [id number] Author: JIM TORRES MD Service: Infectious Disease Author Type: Physician Type: Consults Filed: 04/15/2024 14:23 Note Text: INITIAL CONSULT INFECTIOUS DISEASE SERVICE DATE: 04/15/2024 SERVICE TIME: 11:04 AM We were asked to evaluate Ms. Aleena Andrea, a 73 year old yo female by for Ischiorecal fossa abscess, durration of treatment. Our findings and recommendations will be communicated through the shared medical record. ASSESSMENT: R large subcutaneous abscess -> R ischiorectal s/p debridement 04/14/24 CoNS Bcx x 1 contaminant Estimated Creatinine Clearance: 101 mL/min (A) (based on SCr of 0.38 mg/dL (L)). RECOMMENDATIONS: - cont zosyn + vanco for now - await bcx - aware surgery recommended potential IR drainage of fluid collection in pelvis - planning for CoPAT , tentative ertapenem , duration TBD 2-4 weeks - check MRSA screen Communicated with primary team If there are any questions or concerns over the weekend, please contact Ingrid Doherty C.N.P or Dr. Holli Waggoner Thank you Subjective SUBJECTIVE: HPI: 73 year old female Transverse myelitis, neurogenic bladder status post lap augmentation cystoplasty with ileal ileal right sacral,, CAD, hypertension, chronic sacral decubitus ulcer, chronic pain on intrathecal pain pump presented to [facility] 04/13/2024 for 1 week right hip pain with progressive worsening wound. CT pelvis showed large right sided subcutaneous abscess collection extending into the right ischiorectal. With extensive pelvic soft tissue edema/cellulitis Active Antimicrobials (From admission, onward) Start Stop 04/14/24 1000 vancomycin dosing and monitoring per pharmacy OTHER, DIRECTED -- 04/14/24 1000 piperacillin-tazobact am iv piggyback 3.375 g in dextrose (iso-osmotic) 50 mL (ZOSYN) 3.375 g, INTRAVENOUS, EVERY 6 HOURS -- 04/14/24 1000 vancomycin 750 mg in D5W 250 mL Vial-Bag (VANCOCIN) 0.015 g/kg/dose, INTRAVENOUS, EVERY 12 HOURS -- Immunosuppressants: none Current other medications reviewed. Current Facility-Administered Medications Medication Dose Route Frequency NaCl 0.9% iv flush bag 20 mL INTRAVENOUS PRN enoxaparin 30 mg injection (LOVENOX) 30 mg SUBCUTANEOUS q 24 H vancomycin dosing and monitoring per pharmacy OTHER As Directed piperacillin-tazobact am iv piggyback 3.375 g in dextrose (iso-osmotic) 50 mL (ZOSYN) 3.375 g INTRAVENOUS q 6 H vancomycin 750 mg in D5W 250 mL Vial-Bag (VANCOCIN) 0.015 g/kg/dose INTRAVENOUS q 12 HR gabapentin 800 mg cap(s) (NEURONTIN) 800 mg ORAL q 6 H oxyCODONE IR 15 mg tab(s) (ROXICODONE) 15 mg ORAL q 4 H PRN fentaNYL 50 mcg/mL 50 mcg injection (SUBLIMAZE) 50 mcg INTRAVENOUS q 2 H PRN senna-docusate 8.6-50 mg 1 tablet (SENNA-S) 1 tablet ORAL BID polyethylene glycol 3350 17 g packet 17 g ORAL DAILY PRN HYDROmorphone (PWD) 1 mg patient's own pump - [facility] placeholder INTRATHECAL CONTINUOUS traZODone 100 mg tab(s) (DESYREL) 100 mg ORAL AT BEDTIME melatonin 3 mg tab(s) 3 mg ORAL DAILY (8 PM) diclofenac 1 % 4 g topical gel (VOLTAREN) 4 g TOPICAL QID PAST MEDICAL HISTORY Diagnosis Date Acute gastritis [...] OF transverse mylitis pos. spasticity Respiratory failure ([facility]) Rosacea Transverse myelitis ([facility]) Unspecified cause of encephalitis, myelitis, and encephalomyelitis [...] IF PFRMD 12/01/13 Sigmoidoscopy, flexible TONSILLECTOMY PRIMARY/SECONDARY Social History Tobacco Use Smoking status: Never Smokeless tobacco: Never Vaping Use Vaping status: Never Used Substance Use Topics Alcohol use: No Drug use: No FAMILY HISTORY Problem Relation Age of Onset Colon Cancer Father 85 Ischemic Heart Disease Mother [place] ( in 2001) Osteoporosis Mother other (MS) O (more content not included)... Normal [facility] CONSULT PROGon 04-15-2024 CONSULT PROG HNO ID: [id number] Author: FANI ALMODOVAR [facility] Service: Pharmacy Author Type: Pharmacist Type: Consult Progress Note Filed: 04/15/2024 10:04 Note Text: PHARMACY VANCOMYCIN DOSING NOTE Patient Name: Aleena Andrea Admission Date: 04/13/2024 Date of Consult: 04/15/2024 Time of Consult: 9:54 AM Indication: Skin/soft tissue Goal Range: 10-20 mcg/mL RECOMMENDATIONS/PLAN: Pharmacy consulted for vancomycin dosing for Aleena Andrea, a 73 year old female. 1. Patient is currently ordered Vancomycin 750 mg IV q12h. Today is day 3 of therapy. 2. The most recent vancomycin level was 10.8 mcg/mL drawn at 0908 on 04/15. This is a 12 hour level on the 3rd day of therapy. 3. The present dose of vancomycin is the recommended dosage for this patient at this time. Continue therapy as prescribed. 4. The next vancomycin level has been ordered for 04/16 at 0900. (Completed) Will check prior to 4th dose secondary to age. Pt likely to get IR drain placed for ischial/rectal abscess by IR soon. Growing G+ cocci in clusters in one blood culture. We will follow patient renal function, vancomycin levels and doses with you during the course of therapy. Additional recommendations will appear in follow up notes. If you have any questions, please contact Fani Almodovar, PharmD at [phone]. Age: [age] year old Allergies: ALLERGIES Allergen Reactions Ziconotide Other: See Comments Meliza kamalt Last 3 Encounter Wt Readings: Date: Wt: 04/13/2024 54.1 kg (119 lb 4.3 oz) 10/10/2022 44.5 kg (98 lb) 09/19/2022 53 kg (116 lb 13.5 oz) Last 1 Encounter Ht Readings: Date: Ht: 04/13/2024 154.9 cm (5' 1) CrCl: 99 mL/min Temp (24hrs), Av.5 ?C (97.7 ?F), Min:36 ?C (96.8 ?F), Max:36.8 ?C (98.2 ?F) - Current Temp: 36.6 ?C (97.9 ?F) Labs BUN (mg/dL) Date Value 04/15/2024 9 04/13/2024 6 (L) 09/28/2022 5 (L) Creatinine (mg/dL) Date Value 04/15/2024 0.38 (L) 04/13/2024 0.36 (L) 09/28/2022 0.43 (L) WBC (k/uL) Date Value 04/15/2024 8.17 04/13/2024 11.57 (H) 09/28/2022 4.49 Vancomycin Levels: Vancomycin (ug/mL) Date/Time Value 04/15/2024 0908 10.8 Fani Almodovar, PharmD, [facility] CONSULT PROG HNO ID: [id number] Author: TARUN HARRIS DO Service: General Surgery Author Type: Resident Type: Consult Progress Note Filed: 04/15/2024 08:39 Note Text: Emergency General Surgery Progress Note SERVICE DATE: April 15, 2024 Emergency General Surgery Service Pager: For questions or concerns Mon-Fri 6a-5p please page [phone]. After 5pm and on Weekends and Holidays, please page [phone] if in ICU or [phone] if on RNF. SUBJECTIVE: Patient seen this morning on rounds. No acute overnight events. Pain is controlled. Denies nausea vomiting. Dressing changed this morning. Tolerating diet DIET REGULAR OBJECTIVE: Vitals: Temp (24hrs), Av.5 ?C (97.7 ?F), Min:36 ?C (96.8 ?F), Max:36.8 ?C (98.2 ?F) BP 98/52 Pulse 67 Temp 36.8 ?C (98.2 ?F) (Oral) Resp 16 Ht 154.9 cm (5' 1) Wt 54.1 kg (119 lb 4.3 oz) LMP 08/16/2002 SpO2 95% BMI 22.54 kg/m? O2 Therapy: Room Air IANDO: Date 04/14/24 0700 - 04/15/2465804/15/24 07 - 12/14/24 0659 Shift 2765-8034 3391-8067 4902-3286 24 Hour Total 3067-6855 6437-8184 2472-0286 24 Hour Total INTAKE IV 1300 1300 Volume (mL) (lactated ringers 500 mL iv bolus) 500 500 Volume (mL) (lactated ringers iv infusion) 800 800 Shift Total 1300 1300 OUTPUT Urine 083 224 7120 Void (ml) 865 517 5971 Shift Total 787 414 5531 Weight (kg) 44.5 54.1 54.1 54.1 54.1 54.1 54.1 54.1 MEDICATIONS Current Facility-Administered Medications Medication Dose Route Frequency melatonin 3 mg tab(s) 3 mg ORAL DAILY (8 PM) enoxaparin 30 mg injection (LOVENOX) 30 mg SUBCUTANEOUS q 24 H vancomycin dosing and monitoring per pharmacy OTHER As Directed piperacillin-tazobact am iv piggyback 3.375 g in dextrose (iso-osmotic) 50 mL (ZOSYN) 3.375 g INTRAVENOUS q 6 H vancomycin 750 mg in D5W 250 mL Vial-Bag (VANCOCIN) 0.015 g/kg/dose INTRAVENOUS q 12 HR gabapentin 800 mg cap(s) (NEURONTIN) 800 mg ORAL q 6 H oxyCODONE IR 15 mg tab(s) (ROXICODONE) 15 mg ORAL q 4 H PRN fentaNYL 50 mcg/mL 50 mcg injection (SUBLIMAZE) 50 mcg INTRAVENOUS q 2 H PRN senna-docusate 8.6-50 mg 1 tablet (SENNA-S) 1 tablet ORAL BID polyethylene glycol 3350 17 g packet 17 g ORAL DAILY PRN HYDROmorphone (PWD) 1 mg patient's own pump - [facility] placeholder INTRATHECAL CONTINUOUS traZODone 100 mg tab(s) (DESYREL) 100 mg ORAL AT BEDTIME NaCl 0.9% iv flush bag 20 mL INTRAVENOUS PRN Labs: Recent Labs 04/15/24 0126 04/13/24 2335 NA 132* 131* K -- 3.7 CHLOR 99 95* CO2 26 28 BUN 9 6* CREAT 0.38* 0.36* GLUC 174* 86 ANION 7* 8 CA 7.7* 8.2* ALB -- 2.7* AST -- 16 ALT -- 9 ALKPHOS -- 84 TBILI -- 0.2 WBC 8.17 11.57* HB 8.4* 9.0* HCT 25.5* 28.1* PLT 594* 617* LACT -- 0.6 Physical Exam: GENERAL: No distress, Alert NEURO: AANDOx3, CN II-XII grossly intact HEENT: normocephalic, atraumatic LUNGS: Unlabored breathing, equal chest rise bilaterally CARDIAC: Regular rate, warm and well perfused distal extremities ABDOMEN: Soft, non-tender, non-distended SACRUM: R ischial pressure wound status post debridement w/ healthy appearing granulation tissue on the wound bed EXTREMITIES: GARCIA, No deformities, No edema SKIN: Skin color, texture, turgor normal, No rashes or lesions ASSESSMENT AND PLAN: Assessment Active Hospital Problems Diagnosis Date Noted Soft tissue abscess 04/14/2024 Pressure injury of right ischium, unstageable ([facility]) 04/14/2024 Pressure injury of right perineal ischial region, unstageable ([facility]) 04/14/2024 Chronic constipation 04/14/2024 Pressure injury of dorsum of left foot, stage 2 ([facility]) 09/22/2022 Assessment: 73 year old female with PMHx of CAD, CHF, depression, hemorrhoids, osteoporosis, constipation, intrathecal pain pump, transverse myelitis causing LE paralysis, s/p lap augmentation cystoplasty with ileoileal catheterizable stoma at the umbilicus for neurogenic bladder. EGS consulted for debridement of right side hip wound. Hospital Course/Operations/Pro cedures: 04/14/2024 Procedure(s): DEBRIDEMENT AND EXCISION SACRAL PRESSURE ULCER, possible drain placement Plan: Right Ischial Pressure Ulcer -S/P OR for debridement on 04/14 -Cont daily dressing changes -Wound bed appears to be healing appropriately - Recommend discussion with IR for potential drainage for fluid around sacrum - Surgery will continue to follow SIGNATURE: Angie Sin DO PATIENT NAME: Aleena Andrea DATE: April 15, 2024 TIME: 0702 Pager: [phone] Emergency General Surgery Service Pager: For questions or concerns Mon-Fri 6a-5p please page [phone]. After 5pm and on Weekends and Holidays, please page [phone] if in ICU or [phone] if on RNF. Normal [facility] POTASSIUMon 04-15-2024 Potassium [Moles/Vol] 3.7 mmol/L Normal 3.7-5.1 [facility] Comment on above: Order Comment: Speci men Type: BLOOD SPECIMEN Ordering Facility: [facility] Address: [address] [place] [address] Performed By: #### C RET1 #### [facility] CLIA [id number] [address] OF [facility] STAPHYLOCOCCUS AUREUS AND MR SA SCREEN, PCR, NASALon 04-15-2024 S. aureus and MRSA panel PENELOPE+probe (Nose) Methicillin-SUSCEPTIB LE Staphylococcus aureus Detected Abnormal Not Detected [facility] Comment on above: Order Comment: Speci men Type: SWAB Ordering Facility: [facility] Address: [address] [place] [address] Performed By: #### S APCR #### [facility] CLIA [id number] [address] OF [place] THERAPY NTon 04-15-2024 THERAPY NT HNO ID: [id number] Author: JUAN DIEGO WHALEY OTR/L Service: Occupational Therapy Author Type: Occupational Therapist Type: Therapy (PT/OT/Speech/Resp) Filed: 04/15/2024 14:51 Note Text: Occupational Therapy Evaluation Summary SERVICE DATE: 04/15/2024 SERVICE TIME: 1324 to 1355 ROOM: [id number] OT 6 Clicks Score: 16 DISCHARGE RECOMMENDATIONS Subacute/SNF Recommended Discharge Disposition Due to: Functional deficits requiring ongoing therapy service prior to discharge home., ADL impairment, Functional status decline, Requires multiple therapy disciplines ASSESSMENT Response to Therapy Interventions: Good Participation in Activities, Pain, Requires Additional Time to Complete Activities, Low Activity Tolerance Pt functioning below prior baseline, typically independent for ADLs and mod I for slideboard transfers to/from her wheelchair. Pt now limited by decreased activity tolerance and requires assist for bed mobility and transfers. PRECAUTIONS Fall Risk CURRENT HOSPITAL COURSE Pt with hx of paraplegia 2/2 Transverse myelitis, presented to [facility] from [facility] for 1 week of hip pain with progressive wounds of R hip. 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, CAD, CHF, Depression, intrathecal pump, transverse myelitis HOME LIVING Patient Lives With: Self/Alone Assistance Available: PRN Entry To Home: No Stairs Tub/Shower Type: walk in shower, transfers from w/c to shower bench Laundry: in apartment, pt completes Equipment Owned: Shower Chair, High Density Press Laborer, Wheelchair- Manual, Hospital Bed, Wheelchair- Power (slide board) PRIOR FUNCTIONAL LEVEL Within Functional Limits Pt paralyzed from waist down, pt independent with slide board transfers and ADLs Baseline Cognition: Oriented to self, Oriented to place, Oriented to time, Oriented to situation SUBJECTIVE Pt pleasant, agreeable to work with therapy today. COGNITION Orientation Deficits: (Ox4) Responsiveness: Awake, Alert Follows Commands: 2-step Commands, Cueing Needed THERAPY DIAGNOSIS Reduced mobility-other, Decreased activities of daily living (ADL), Muscle Weakness (generalized) TREATMENT INTERVENTIONS Evaluation Skilled Treatment Time (minutes): 15 $ Evaluation - Moderate (27695) Billed Units: 1 unit TRAINING AND EDUCATION PROVIDED Activity Adaptation/Compensato ry Strategies, Altering Thinking Patterns, Bed Mobility, Benefits of In-Hospital Mobility, Functional Mobility Involving ADLs, Lower Extremity Dressing, Pain Management, Positioning, Precautions/Restricti ons, Role of Occupational Therapy, Safety/Judgment, Sitting Balance to Improve [place] with ADLs/Self-Care, Standing Balance to Improve [place] with ADLs/Self-Care THERAPEUTIC SKILLS USED Activity Dosing, Cues for Sequencing/Proper Technique for Activity, Cuing Verbal, Movement Facilitation, Physical Assist, Teach-Back for Education, Therapeutic Use of Self FUNCTIONAL STATUS Activities of Daily Living Assist Level Additional Information Feeding Independent Grooming Stand By Assistance Bathing Upper Body Minimal Assistance Bathing Lower Body Moderate Assistance Dressing Upper Body Minimal Assistance, Additional Information assist to manage gown during mobility, assist to tie Dressing Lower Body Moderate Assistance, Additional Information assisted to don/doff socks when sitting EOB Toileting Maximal Assistance, Additional Information bed level completed just prior to session with RN - per RN pt rolls without significant assistance Mobility Assist Level Additional Information Bed Mobility Supine To Sit: Minimal Assistance, Additional Information Ax2 assist to support trunk, manage gown during transfer Sit To Supine: Minimal Assistance, Additional Information Pt able to bring legs into bed, provided minimal assist at pt's trunk to prevent LOB Sit to Stand Stand to Sit Bed to Chair Toilet/Commode Shower Functional Mobility ROM WFL bilateral UE STRENGTH Strength Limitation Comments: decreased UB strength during functional transfers, typically able to push through arms to complete slide board transfers but unable to complete today. Grossly 4/5 bilateral UE ACTIVITY TOLERANCE Sitting Activity: sitting EOB, bed mobility Sitting Activity Tolerance (in minutes): 20 BALANCE Static Sitting Balance: Fair Dynamic Sitting Balance: Poor GOALS Grooming with: Modified Independent Upper Body Bathing with: Stand By Assistance Upper Body Dressing with: Stand By Assistance Lower Body Bathing with: Stand By Assistance Lower Body Dressing with: Stand By Assistance Transfer: Pt to complete slideboard transfer from bed to w/c with min A Rehab Potential: Good PLAN OT Frequency: 2 Times Per Week Treatment Interventions: Education, Self Care/Home Management, Strengthening, Functional Mobility Training, Balance Training, Pain Management SIGNATURE: Juan Diego Whaley, OTR/L PAT (more content not included)... Normal [facility] THERAPY NT HNO ID: [id number] Author: JUAN DIEGO GRIJALVA, PT Service: Physical Therapy Author Type: Physical Therapist Type: Therapy (PT/OT/Speech/Resp) Filed: 04/15/2024 14:47 Note Text: Physical Therapy Evaluation Summary SERVICE DATE: 04/15/2024 SERVICE TIME: 1330 to 1359 ROOM: [place] [id number] PT 6 Clicks Score: 10 DISCHARGE RECOMMENDATIONS Subacute/SNF Recommended Discharge Disposition Comments: patient not at functional baseline of able to complete slide board trasnfelvie recommending SNF level of care. Recommended Discharge Disposition Due to: Functional deficits requiring ongoing therapy service prior to discharge home., Functional status decline, Requires multiple therapy disciplines ASSESSMENT Response to Therapy Interventions: Good Participation in Activities Reached out to RN about getting wedges to assist with positioning in bed to assist with pressure relief of R hip. PRECAUTIONS Fall Risk CURRENT HOSPITAL COURSE Pt with hx of paraplegia 2/2 Transverse myelitis, presented to [facility] from [facility] for 1 week of hip pain with progressive wounds of R hip. 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, CAD, CHF, Depression, intrathecal pump, transverse myelitis HOME LIVING Patient Lives With: Self/Alone Assistance Available: PRN Entry To Home: No Stairs Tub/Shower Type: walk in shower, transfers from w/c to shower bench Laundry: in apartment, pt completes Equipment Owned: Shower Chair, High Density Press Laborer, Wheelchair- Manual, Hospital Bed, Wheelchair- Power (slide board) PRIOR FUNCTIONAL LEVEL Within Functional Limits Pt paralyzed from waist down, pt independent with slide board transfers and ADLs SUBJECTIVE Agreeable to PT session THERAPY DIAGNOSIS Reduced mobility-other TREATMENT INTERVENTIONS Evaluation $ Evaluation-Moderate (76013) Billed Units: 1 unit Skilled Treatment Time (minutes): 15 TRAINING AND EDUCATION PROVIDED Bed Mobility, Benefits of In-Hospital Mobility, Discharge Planning, Disease Specific Education, Expected Functional Level, Home Set-up/Modifications, Role of Physical Therapy, Positioning, Sitting Balance, Transfers THERAPEUTIC SKILLS USED Cues for Sequencing/Proper Technique for Activity, Cuing Tactile, Cuing Verbal, Cuing Visual, Movement Facilitation, Muscle Activation Facilitation, Physical Assist, Postural Alignment Correction FUNCTIONAL STATUS Bed Mobility Supine To Sit: Minimal Assistance, Additional Information Sit to Supine: Contact Guard Assistance Transfers Bed to Chair Additional Information Attempted bed to chair slide board transfer, unable to transfer to the R side without dragging and causing shearing force to R hip. Attempted slide board transfer toward the L side but difficulty completing this. Discussed maybe needing to complete most trasfners to the L side for the time being to assist with decreasing shear forces to R hip. Gait Stairs ROM ROM Limitation Comments: limited STRENGTH Strength Limitation Comments: grossly 0/5 BLEs BALANCE Static Sitting Balance: Fair Dynamic Sitting Balance: Fair GOALS Able to Perform HEP with: Independent Rolling with: Independent Transfer Supine to/from Sit with: Independent Transfer: complete bed to chair slide board transfers independently Rehab Potential: Good PLAN PT Frequency: 3 Times Per Week (1-3) Treatment Interventions: Education, Strengthening, Functional Mobility Training, Balance Training, Neuromuscular Re-education SIGNATURE: Juan Diego Grijalva PT PATIENT NAME: Aleena Andrea DATE: April 15, 2024 TIME: 2:45 PM Normal [facility] Vancomycin random [Mass/Vol] on 04-15-2024 Vancomycin [Mass/Vol] 10.8 ug/mL Normal 10.0-20.0 [facility] Comment on above: Order Comment: Speci men Type: BLOOD SPECIMEN Ordering Facility: [facility] Address: [address] [place] [address] Result Comment: Refe rence ranges and high/low indicator flags are provided as general guidelines only. The treating physician must determine appropriate target levels/dosing based on the specific clinical situation. Performed By: #### C RET1 #### [facility] CLIA [id number] [address] [place] [address] [place] Wound Cultureon 04-15-2024 WC Normal [facility] Comment on above: Performed By: #### M 100.4001, M100.3000, M100.1999 ####[facility] [id number] [place], [address] ANES POSTPROC EVALon 024 ANES POSTPROC EVAL HNO ID: [id number] Author: YOSELIN QUIROZ MD Service: Anesthesiology Author Type: Anesthesiologist Type: Anesthesia Postprocedure Evaluation Filed: 04/18/2024 22:09 Note Text: POST ANESTHESIA EVALUATION NOTE : 1950 Procedure Summary Date: 04/14/24 Room / Location: [place] / [place] Anesthesia Start: 1303 Anesthesia Stop: 1415 Procedure: DEBRIDEMENT AND EXCISION SACRAL PRESSURE ULCER, possible drain placement (Sacrum) Diagnosis: Sacral ulcer (HCC) (Sacral ulcer (HCC) [L98.429]) Surgeons: Case Eirckson MD Responsible Provider: Yoselin Quiroz MD Anesthesia Type: general, MAC ASA Status: 3 Anesthesia Type: general, MAC Airway Type: LMA Last Vitals Vitals Value Taken Time BP 99/69 04/14/24 1645 Temp 36.1 ?C (97 ?F) 04/14/24 1500 HR SpO2 61 04/14/24 1645 Resp 18 04/14/24 1645 SpO2 100 % 04/14/24 1645 Post Anesthesia Patient Status Patient Evaluation: PACU. PACU/ICU Patient Condition: stable. Anticipated Disposition: inpatient floor planned admission. Neurological Status: aware and responsive. Pulmonary Status: breathing comfortably on supplemental oxygen Airway Control: returned to baseline unsupported. Cardiovascular Status: stable. Pain Management: clinically adequate Postoperative Hydration: acceptable. Intraoperative Events: no significant anesthesia events Recommendation: continue current plan of care. Anesthesia Observations No Documentation SIGNATURE: Yoselin Quiroz MD PATIENT NAME: Aleena Andrea DATE: April 18, 2024 TIME: 10:07 PM CSN: [id number] [facility] ANES PRE-OPon 04-14-2024 ANES PRE-OP HNO ID: [id number] Author: YOSELIN QUIROZ MD Service: Anesthesiology Author Type: Anesthesiologist Type: Anesthesia Preprocedure Evaluation Filed: 04/14/2024 12:38 Note Text: ANESTHESIOLOGY DAY OF SURGERY NOTE : 1950 Procedure Information Date/Time: 04/14/24 1304 Procedure: DEBRIDEMENT AND EXCISION SACRAL PRESSURE ULCER, possible drain placement (Sacrum) Location: [place] OR 17 / [place] Surgeons: Case Erickson MD Estimated body mass index is 18.52 kg/m? as calculated from the following: Height as of this encounter: 154.9 cm (5' 1). Weight as of this encounter: 44.5 kg (98 lb). Most recent hematocrit and potassium results: Hematocrit 28.1 04/13/2024 Potassium 3.7 04/13/2024 Relevant Problems CARDIO (+) CAD (coronary artery disease) (+) CHF (congestive heart failure) (HCC) (+) Migraine, unspecified, without mention of intractable migraine without mention of status migrainosus NEURO-PSYCH (+) Migraine, unspecified, without mention of intractable migraine without mention of status migrainosus I - PHYSICAL EVALUATION AIRWAY Patient intubated: No. Tracheostomy tube not present Mallampati: II. TM distance: >3 FB. Neck ROM: full ROM without neurological symptoms. Mouth opening: adequate. Short neck: no. Thick neck: no II - ANESTHESIA PLAN ASA Score: 3 Anesthetic Plan: general and MAC Airway type: LMA NPO Status: adequate Anesthetic plan additional comments: GA w/ LMA vs MAC per surgeon preference. Beta Kenan Monitoring Plan Monitoring plan: standard ASA. Post Procedure Analgesic Plan Postoperative analgesic plan: multimodal analgesia, parenteral or oral opioids and per surgical service. Informed Consent Anesthetic risks, benefits, alternatives, personnel and consent discussed: yes. Patient / Responsible Libertarian agrees to proceed: yes Patient / Surrogate agrees to blood products: Yes Vitals Value Taken Time BP 100/55 04/14/24 1215 Pulse 70 04/14/24 1215 Resp 18 04/14/24 1215 Temp 36.6 ?C (97.9 ?F) 04/14/24 1215 SpO2 94 % 04/14/24 1215 Facility-Administered Medications as of 04/14/2024 Medication Dose Route Frequency [COMPLETED] NaCl 0.9% iv bolus 500 mL 500 mL INTRAVENOUS ONCE [COMPLETED] NaCl 0.9% iv bolus 500 mL 500 mL INTRAVENOUS ONCE [Transfer Hold] enoxaparin 30 mg injection (LOVENOX) 30 mg SUBCUTANEOUS q 24 H [COMPLETED] lactated ringers 500 mL iv bolus 500 mL INTRAVENOUS ONCE [Transfer Hold] vancomycin dosing and monitoring per pharmacy OTHER As Directed [Transfer Hold] piperacillin-tazobact am iv piggyback 3.375 g in dextrose (iso-osmotic) 50 mL (ZOSYN) 3.375 g INTRAVENOUS q 6 H [Transfer Hold] vancomycin 750 mg in D5W 250 mL Vial-Bag (VANCOCIN) 0.015 g/kg/dose INTRAVENOUS q 12 HR [Transfer Hold] gabapentin (NEURONTIN) cap(s) 800 mg 800 mg ORAL q 6 H [Transfer Hold] oxyCODONE IR 15 mg tab(s) (ROXICODONE) 15 mg ORAL q 4 H PRN [Transfer Hold] fentaNYL 50 mcg/mL 50 mcg injection (SUBLIMAZE) 50 mcg INTRAVENOUS q 2 H PRN [Transfer Hold] senna-docusate 8.6-50 mg 1 tablet (SENNA-S) 1 tablet ORAL BID [Transfer Hold] polyethylene glycol 3350 17 g packet 17 g ORAL DAILY PRN [Transfer Hold] NaCl 0.9% iv flush bag 20 mL INTRAVENOUS PRN Outpatient Medications as of 04/14/2024 Medication Sig oxycodone HCl (OXYCODONE ORAL) Take [...] Take 10 mg by mouth twice daily. amitriptyline (ELAVIL) 50 mg tablet (Patient not taking: Reported on 10/10/2022) triamcinolone (KENALOG IN ORABASE) 0.1 % paste gabapentin (NEURONTIN) 800 mg tablet Take 800 mg by mouth four times daily. cloNIDine HCl (CATAPRES) 0.2 mg tablet Take 0.2 mg by mouth daily at bedtime. tiZANidine (ZANAFLEX) 2 mg tablet Take 2 mg by mouth every 6 hours as needed. (Patient not taking: Reported on 10/10/2022) (No Medication Selected) by INTRATHECAL route continuous. [...] 375 mg by mouth twice daily. WHEELCHAIR [facility] STANDING WHEELCHAIR I have interviewed and examined the patient. I have reviewed the medical record and/or the pre-anesthesia evaluation, pertinent labs, and test results. This contains updated information obtained within 48 hours of Surgery/Procedure. SIGNATURE: Yoselin Quiroz MD PATIENT NAME: Aleena Andrea DATE: April 14, 2024 TIME: 12:37 PM CSN: [id number] Normal [facility] CK SerPl-cCncon 04-14-2024 CK [Catalytic activity/Vol] 21 U/L Low 42-196 [facility] Comment on above: Order Comment: Speci men Type: BLOOD SPECIMEN Ordering Facility: [facility] Address: [address] [place] [address] Performed By: #### 5 [id number] #### [facility] CLIA [id number] [address] [place] [address] [place] CONSULTon 04-14-2024 CONSULT HNO ID: [id number] Author: FRANCISCA SWANSON MD Service: Pain Management Author Type: Physician Type: Consults Filed: 04/14/2024 13:02 Note Text: Name: ALEENA ANDREA Age: [age] year old PAIN MANAGEMENT: Subcutaneous ischial/rectal abscess, history of paraplegia from transverse myelitis, chronic pain syndrome, intrathecal pump Pain Description: Patient seen in ER; appears uncomfortable. Complains of sharp, shooting pain right hip going down to her toes. Interval HPI: 24H Comfort Meds: None Subjective HPI: 73-year-old female with history of transverse myelitis with subsequent paralysis (July 2000) s/p intrathecal pain pump, chronic wounds, neurogenic bladder s/p lap augmentation cystoplasty with ileoileal catheterizable stoma at umbilicus, CAD, CHF, osteoporosis, depression presented 04/13 from [facility] for increased right hip pain and progressive wounds. CTAP from [facility] showed right sided 8.5x8.3cm subcutaneous abscess extending into the right ischial rectal fossa along with extensive soft tissue edema/cellulitis. This finding is new since last CT scan 09/2022. Patient seen by surgery with plan for debridement. Labs included WBC 11.6 hemoglobin 9. In the ER, patient had mild hypotension 70s/50s which improved with IV fluids. Of note, patient states she took clonidine 0.2 mg last night (part of her pain regimen?) I was involved in patient's care during her admission in Sep, 2022 for SBO. Home pain regimen managed by [facility] includes intrathecal pump (Dilaudid, baclofen) oxycodone 15 mg up to 4 tabs daily, gabapentin 800 mg 4 times daily, Naprosyn 375 mg twice daily, clonidine 0.2 mg at bedtime, trazodone 100 mg at bedtime. Patient states she gets IT pump filled weekly and is due to be filled next week. She lives alone in her apartment with minimal assistance. Her daughter does provide support. OARRS Review: 71 prescriptions from 8 prescribers. Opiate dependent. Most recent prescriptions: 03/15, 04/12 Dilaudid powder 04/11 oxycodone 5 mg #33 04/10 oxycodone 5 mg #3 04/07 oxycodone 5 mg #24 04/06 gabapentin 800 mg #120 03/23 oxycodone 15 mg #120 Current Facility-Administered Medications Medication Dose Route Frequency Provider Last Rate Last Admin enoxaparin 30 mg injection (LOVENOX) 30 mg SUBCUTANEOUS q 24 H Lyn Fernando MD 30 mg at 04/14/24 0802 lactated ringers 500 mL iv bolus 500 mL INTRAVENOUS ONCE Miquel Greer MD 500 mL/hr at 04/14/24 0758 500 mL at 04/14/24 0758 NaCl 0.9% iv flush bag 20 mL INTRAVENOUS PRN Case Hall MD Current Outpatient Medications Medication Sig Dispense Refill oxycodone HCl (OXYCODONE ORAL) Take 15 mg [...] Take 10 mg by mouth twice daily. 0 amitriptyline (ELAVIL) 50 mg tablet (Patient not taking: Reported on 10/10/2022) triamcinolone (KENALOG IN ORABASE) 0.1 % paste gabapentin (NEURONTIN) 800 mg tablet Take 800 mg by mouth four times daily. cloNIDine HCl (CATAPRES) 0.2 mg tablet Take 0.2 mg by mouth daily at bedtime. tiZANidine (ZANAFLEX) 2 mg tablet Take 2 mg by mouth every 6 hours as needed. (Patient not taking: Reported on 10/10/2022) (No Medication Selected) by INTRATHECAL route continuous. [...] mouth twice daily. WHEELCHAIR M[facility] STANDING WHEELCHAIR 1 1 (Not in a hospital admission) Social History Tobacco Use Smoking status: Never Smokeless tobacco: Never Substance Use Topics Alcohol use: No Drug use: No FAMILY HISTORY Problem Relation Age of Onset Colon Cancer Father 85 Ischemic Heart Disease Mother [place] ( in 2001) Osteoporosis Mother other (MS) Other none other (Other) Other No breast/motor vehicles supervisor/colon cancer Colon Cancer Sister 62 PAST MEDICAL HISTORY Diagnosis Date Acute gastritis [...] Other causes of myelitis Other general symptoms(780.99) (more content not included)... Normal [facility] CONSULT HNO ID: [id number] Author: CASE ERICKSON MD Service: General Surgery Author Type: Resident Type: Consults Filed: 05/15/2024 18:52 Note Text: Attestation signed by Case Erickson MD at 05/15/2024 6:52 PM Attending Note I personally saw and examined the patient. I reviewed the resident's note. I agree with the resident's assessment and plan unless otherwise noted. Signature: Case Erickson MD CONSULT: [facility]GS Surgery Service SERVICE DATE: 04/14/2024 SERVICE TIME: 4:06 AM REASON FOR CONSULT: Sacral decubitus ulcer Subjective 73 year old female with PMHx of CAD, CHF, depression, hemorrhoids, osteoporosis, constipation, intrathecal pain pump, transverse myelitis causing LE paralysis, s/p lap augmentation cystoplasty with ileoileal catheterizable stoma at the umbilicus for neurogenic bladder. EGS consulted for debridement of right side hip wound. Presented to [facility] for right sided hip pain that has been ongoing for around 1 week. Patient has a history of sacral decubitus ulcers that have now healed with bedside debridement and local wound care. Said her bedside nurse noticed a wound on her right hip. Denies any systemic signs of infection including fever, night's, chills. Denies any nausea or vomiting. Denies any abdominal pain. Denies any constipation or diarrhea. Patient does have a leukocytosis up to 11.6, lactate of 0.6, MP is within normal limits. CT abdomen pelvis shows extensive sacral decubitus ulcer with 8.5x8.3cm R ischiorectal subq abscess. Patient's last CT scan was done in September 2022, this finding is new since then. Down the patient's scan and history it is likely that this patient has had this abscess brewing for multiple months, the patient only noticed it around a week ago. FUNCTIONAL STATUS: Independent PAST MEDICAL HISTORY Diagnosis Date Acute gastritis [...] causes of myelitis Other general symptoms(780.99) Paraplegia ([facility]) PMH - PAST MEDICAL HISTORY OF transverse mylitis pos. spasticity Respiratory failure ([facility]) Rosacea Transverse myelitis ([facility]) Unspecified cause of encephalitis, myelitis, and encephalomyelitis [...] IF PFRMD 12/01/13 Sigmoidoscopy, flexible TONSILLECTOMY PRIMARY/SECONDARY FAMILY HISTORY Problem Relation Age of Onset Colon Cancer Father 85 Ischemic Heart Disease Mother [place] ( in 2001) Osteoporosis Mother other (MS) Other none other (Other) Other No breast/motor vehicles supervisor/colon cancer Colon Cancer Sister 62 Social History Tobacco Use Smoking status: Never Smokeless tobacco: Never Substance Use Topics Alcohol use: No Drug use: No (Not in a hospital admission) Current Facility-Administered Medications Medication Dose Route Frequency NaCl 0.9% iv flush bag 20 mL INTRAVENOUS PRN NaCl 0.9% iv bolus 500 mL 500 mL INTRAVENOUS ONCE Allergies As of Date: 04/13/2024 Allergen Noted Reaction ZICONOTIDE 09/10/2020 Other: See Comments Fully Assessed 04/13/2024 COMPLETE REVIEW OF SYSTEMS: PAIN ASSESSMENT: Negative for pain, history of chronic pain, or current treatment for a chronic pain condition. NECK: Negative for lumps, goiter, pain and significant neck swelling RESPIRATORY: Negative for cough, hemoptysis, wheezing, COPD, dyspnea or shortness of breath CARDIOVASCULAR: CHF, Hypertension GI: No nausea, vomiting, or diarrhea SKIN: Negative for lesions, rash, and itching PSYCH: Negative for sleep disturbance, mood disorder and recent psychosocial stressors NEURO: No history of headaches, syncope, paralysis, seizures or tremors Objective PHYSICAL EXAM: Physical Exam Performed: GENERAL: Alert, no distress, cooperative NOSE: Nares normal. Septum midlin (more content not included)... Normal [facility] CONSULT PROGon 04-14-2024 CONSULT PROG HNO ID: [id number] Author: FANI ALMODOVAR RPh Service: Pharmacy Author Type: Pharmacist Type: Consult Progress Note Filed: 04/14/2024 09:52 Note Text: PHARMACY VANCOMYCIN DOSING NOTE Patient Name: Aleena Andrea Admission Date: 04/13/2024 Date of Consult: 04/14/2024 Time of Consult: 9:26 AM Indication: Skin/soft tissue Goal Range: 10-20 mcg/mL RECOMMENDATIONS/PLAN: Pharmacy consulted for vancomycin dosing for Aleena Andrea, a 73 year old female. 1. Patient is currently ordered Vancomycin 750 mg IV once. Today is day 2 of therapy. Got first dose of Vancomycin on 04/13 at 1800 per documentation from [facility]. 2. No vancomycin level has been drawn for this dosing regimen. 3. Will adjust vancomycin to 750 mg with a dosing interval of q12h. 4. The next vancomycin level has been ordered for 04/15 at 0900. (Completed). Checking level prior to 3rd consecutive dose but 4th dose if Que dose is included secondary to age and severity of infection. We will follow patient renal function, vancomycin levels and doses with you during the course of therapy. Additional recommendations will appear in follow up notes. If you have any questions, please contact Fani Almodovar PharmD at [phone]. Age: [age] year old Allergies: ALLERGIES Allergen Reactions Ziconotide Other: See Comments Last 3 Encounter Wt Readings: Date: Wt: 04/13/2024 44.5 kg (98 lb) 10/10/2022 44.5 kg (98 lb) 09/19/2022 53 kg (116 lb 13.5 oz) Last 1 Encounter Ht Readings: Date: Ht: 04/13/2024 154.9 cm (5' 1) CrCl: 99 mL/min - I calculated Temp (24hrs), Av ?C (98.6 ?F), Min:37 ?C (98.6 ?F), Max:37 ?C (98.6 ?F) - Current Temp: 37 ?C (98.6 ?F) Labs BUN (mg/dL) Date Value 04/13/2024 6 (L) 09/28/2022 5 (L) 09/27/2022 4 (L) Creatinine (mg/dL) Date Value 04/13/2024 0.36 (L) 09/28/2022 0.43 (L) 09/27/2022 0.33 (L) WBC (k/uL) Date Value 04/13/2024 11.57 (H) 09/28/2022 4.49 09/27/2022 3.27 (L) Vancomycin Levels: No results found for: NOVA Almodovar, CharlineD, [facility] CONSULT PROG HNO ID: [id number] Author: RK FERNANDEZ APRN.LIAISON OFFICER Service: Wound/Ostomy Author Type: Nurse Practitioner Type: Consult Progress Note Filed: 04/14/2024 12:25 Note Text: WOUND CARE SERVICE CONSULT BATH STEWARD NOTE SERVICE DATE: 04/14/2024 SERVICE TIME: 846 REASON FOR CONSULT: Consultation requested by Lyn Fernando MD for an opinion regarding right hip trochanter wound. My final recommendations will be communicated back to the requesting physician by way of shared Medical record or letter to requesting physician via US mail. CHIEF COMPLAINT: wounds to coccyx, hip, foot. Subjective HISTORY OF PRESENT ILLNESS: Ms. Andrea is a 73 year old female who is seen today with Amina Becerra, Wound/supercharger mechanic, and presented to hospital with complaints of hip pain with wound of right hip. PMH CAD, CHF, migraines, paraplegia. PERTINENT REVIEW OF SYSTEMS: GENERAL: denies fever PAIN ASSESSMENT: denies SKIN: wounds on coccyx, hip, foot RESPIRATORY: denies SOB GI/: denies N/V PAST MEDICAL HISTORY Diagnosis Date Acute gastritis [...] IF PFRMD 12/01/13 Sigmoidoscopy, flexible TONSILLECTOMY PRIMARY/SECONDARY Social History Tobacco Use Smoking status: Never Smokeless tobacco: Never Substance Use Topics Alcohol use: No Drug use: No FAMILY HISTORY Problem Relation Age of Onset Colon Cancer Father 85 Ischemic Heart Disease Mother [place] ( in 2001) Osteoporosis Mother other (MS) Other none other (Other) Other No breast/motor vehicles supervisor/colon cancer Colon Cancer Sister 62 MEDICATIONS: Current Facility-Administered Medications Medication Dose Route Frequency [Transfer Hold] NaCl 0.9% iv flush bag 20 mL INTRAVENOUS PRN [Transfer Hold] enoxaparin 30 mg injection (LOVENOX) 30 mg SUBCUTANEOUS q 24 H [Transfer Hold] vancomycin dosing and monitoring per pharmacy OTHER As Directed [Transfer Hold] piperacillin-tazobact am iv piggyback 3.375 g in dextrose (iso-osmotic) 50 mL (ZOSYN) 3.375 g INTRAVENOUS q 6 H [Transfer Hold] vancomycin 750 mg in D5W 250 mL Vial-Bag (VANCOCIN) 0.015 g/kg/dose INTRAVENOUS q 12 HR [Transfer Hold] gabapentin (NEURONTIN) cap(s) 800 mg 800 mg ORAL q 6 H [Transfer Hold] oxyCODONE IR 15 mg tab(s) (ROXICODONE) 15 mg ORAL q 4 H PRN [Transfer Hold] fentaNYL 50 mcg/mL 50 mcg injection (SUBLIMAZE) 50 mcg INTRAVENOUS q 2 H PRN [Transfer Hold] senna-docusate 8.6-50 mg 1 tablet (SENNA-S) 1 tablet ORAL BID [Transfer Hold] polyethylene glycol 3350 17 g packet 17 g ORAL DAILY PRN ALLERGIES Allergen Reactions Ziconotide Other: See Comments Meliza joiner Objective PHYSICAL EXAM: BP (!) 87/50 Pulse 74 Temp 37 ?C (98.6 ?F) (Oral) Resp 18 Ht 154.9 cm (5' 1) Wt 44.5 kg (98 lb) LMP 08/16/2002 SpO2 98% BMI 18.52 kg/m? General appearance: A/O female resting in cot, pleasant and cooperative. Respiratory: even and unlabored. Cardiovascular: pedal pulses palpable bilaterally. Extremities: Left foot pressure injury stage 2. Heels intact. Integumentary: Stage 2 pressure injury to coccyx. Unstageable pressure injury to right hip. Unstageable pressure injury to perineum. DATA No recent data pertaining to wound care. Presenting wound information: Wound 09/20/22 0228 Pressure Injury Sacrum (Active) Assessments 04/14/2024 8:55 AM Wound Image IF PATIENT HAS A PRESSURE INJURY: WHEN WAS IT ACQUIRED? (Document one time during this admission) Present on Admission during this Encounter Pressure Injury Stage Stage 2 Site Assessment Mcdougal;Red;Yellow;Sloug angela Leyla-Wound Assessment Blanchable erythema (more content not included)... Normal [facility] CRP SerPl-mCncon 04-14-2024 CRP [Mass/Vol] 2.3 mg/dL High <0.9 [facility] Comment on above: Order Comment: Speci men Type: BLOOD SPECIMEN Ordering Facility: [facility] Address: [address] [place] [address] Performed By: #### 5 8410-2 #### [facility] CLIA [id number] [address] ED NOTEon 04-14-2024 ED NOTE HNO ID: [id number] Author: CASSANDRA LAMB, EFE Service: Nursing Author Type: Registered Nurse Type: ED Notes Filed: 04/14/2024 06:57 Note Text: Pt had requested clonidine and trazadone earlier in the evening. She did not want to wait any longer and said she waited long enough and it was time for her to get all her meds. She took her own scheduled medications from home which included: Trazadone Clonidine Gabapentin Oxy. RN made aware and informed Dr. Brenner as well. [facility] ED NOTE HNO ID: [id number] Author: ANAIS LEYVA RN Service: ? Author Type: Registered Nurse Type: ED Notes Filed: 04/14/2024 10:13 Note Text: Patient and sister states that BP is usually 90s systolic and as low at 70s systolic with medications. Patient asymptomatic at this time besides pain Normal [facility] ED NOTE HNO ID: [id number] Author: ANAIS LEYVA RN Service: ? Author Type: Registered Nurse Type: ED Notes Filed: 04/14/2024 09:09 Note Text: Wound care at bedside [facility] ED NOTE HNO ID: [id number] Author: ANAIS LEYVA RN Service: ? Author Type: Registered Nurse Type: ED Notes Filed: 04/14/2024 08:04 Note Text: House resident at bedside [facility] ED NOTE HNO ID: [id number] Author: ANAIS LEYVA RN Service: ? Author Type: Registered Nurse Type: ED Notes Filed: 04/14/2024 07:44 Note Text: Spoke with admitting MD regaurding low BP, awaiting order for additional fluids. Per request by MD, will page is systolic BP drops below 80 systolic Normal [facility] ED NOTE HNO ID: [id number] Author: ANAIS LEYVA RN Service: ? Author Type: Registered Nurse Type: ED Notes Filed: 04/14/2024 07:35 Note Text: Report received from previous RN. Pt on NIBP, SpO2 and hockey scout. Side rails up x2, bed low and locked, call light in reach. Patient resting comfortably at this time. BP remains low, patient appears tired but easily awaken and AANDO x3. Admitting team paged about low pressures. Normal [facility] ED NOTE HNO ID: [id number] Author: CLAUDIO MCCLOUD RN Service: ? Author Type: Registered Nurse Type: ED Notes Filed: 04/14/2024 03:15 Note Text: Bed: 17-ED Expected date: Expected time: Means of arrival: Comments: Room 45 Normal [facility] ED PROV NOTEon 04-14-2024 ED PROV NOTE HNO ID: [id number] Author: CANDELARIA ACUNA DO Service: Emergency Medicine Author Type: Resident Type: ED Provider Notes Filed: 04/15/2024 08:59 Note Text: Attestation signed by Candelaria Acuna DO at 04/15/2024 8:59 AM Attending Physician Attestation Note: Alvarez findings confirmed. I saw the patient in coordination with the resident physician. I personally interviewed and examined the patient. I discussed the patient with the resident physician. I reviewed the resident physician's note. I was present for alvarez portions of and personally supervised any/all procedures. I personally saw the patient and performed a substantive portion of the visit including all aspects of the medical decision making. I agree with the resident physician's findings and medical decision making unless otherwise documented. Signature: Candelaria Acuna DO Date: 04/15/2024 Time: 8:59 AM ED CONTINUATION OF CARE NOTE Code Status: Full Code Assumed care from: Dr. Hall Presentation / Findings / Interventions / Plan / Items to Follow Up: Pending surgery consultation Clinical Impressions as of 04/14/24 0624 Abscess Medical Decision Making General surgery evaluated patient at the bedside and plan to take for debridement tomorrow however are deferring admission to medicine. Patient case was discussed with house residents who agreed to admit the patient. Patient was admitted in stable condition. Patient did have hypotension during ED course and was given 1 L of fluids with improvement. SIGNATURE: Maxine Brenner DO PATIENT NAME: Aleena Andrea DATE: April 14, 2024 TIME: 1:38 AM PAGER/CONTACT #: MAXINE BRENNER 04/14/2424 CANDELARIA ACUNA 04/15/24 0859 Normal [facility] ED PROV NOTE HNO ID: [id number] Author: CANDELARIA ACUNA DO Service: Emergency Medicine Author Type: Resident Type: ED Provider Notes Filed: 04/14/2024 03:00 Note Text: Attestation signed by Candelaria Acuna DO at 04/14/2024 3:00 AM Attending Physician Attestation Note: Alvarez findings confirmed. I saw the patient in coordination with the resident physician. I personally interviewed and examined the patient. I discussed the patient with the resident physician. I reviewed the resident physician's note. I was present for alvarez portions of and personally supervised any/all procedures. I personally saw the patient and performed a substantive portion of the visit including all aspects of the medical decision making. I agree with the resident physician's findings and medical decision making unless otherwise documented. Signature: Candelaria Acuna DO Date: 04/14/2024 Time: 2:59 AM ED Provider Note Patient Name: Aleena Andrea : 1950 SERVICE DATE: 04/13/24 History Patient presents with: Functional Transfers: Pt transferred from [facility] by EMS for a wound and plastics consult. Pt has 3 progressive wounds on her right hip. HPI Patient is a 73-year-old female with a history of transverse myelitis, bilateral lower extremity paralysis, and CHF who presents to the ED as a transfer from the [facility] emergency department for surgical consultation. The patient states that she was diagnosed with colitis in late March and treated in the [facility]. She was then discharged to inpatient rehab but was found to have multiple sacral pressure ulcers while at rehab. She then began seeing wound care at [facility]. When she went in for wound care today she was told to go to the [facility] ED due to concern that her sacral ulcers were infected. At the [facility] emergency department a CT abdomen pelvis was performed which displayed large right sided subcutaneous abscess extending into the right ischial rectal fossa along with extensive soft tissue edema/cellulitis. She denies any fevers,chills, abdominal pain, nausea, or vomiting. PAST MEDICAL HISTORY Diagnosis Date Acute gastritis without mention of hemorrhage Anemia, unspecified CAD (coronary artery disease) CHF (congestive heart failure) ([facility]) Chronic pain Depression Dysphagia Internal hemorrhoids without [...] spasticity Respiratory failure (HCC) Rosacea Transverse myelitis ([facility]) Unspecified cause of encephalitis, myelitis, and encephalomyelitis [...] IF PFRMD 12/01/13 Sigmoidoscopy, flexible TONSILLECTOMY PRIMARY/SECONDARY FAMILY HISTORY Problem Relation Age of Onset Colon Cancer Father 85 Ischemic Heart Disease Mother [place] ( in 2001) Osteoporosis Mother other (MS) Other none other (Other) Other No breast/motor vehicles supervisor/colon cancer Colon Cancer Sister 62 Social History Tobacco Use Smoking status: Never Smokeless tobacco: Never Substance and Sexual Activity Alcohol use: No Drug use: No Sexual activity: Not Currently Comment: Postmenopausal ALLERGIES Allergen Reactions Ziconotide Other: See Comments Review of Systems Constitutional: Negative for chills and fever. HENT: Negative for congestion, rhinorrhea and sore throat. Respiratory: Negative for cough and shortness of breath. Cardiovascular: Negative for chest pain and palpitations. Gastrointestinal: Negative for abdominal pain, constipation, diarrhea, nausea and vomiting. Genitourinary: Negative for difficulty urinating and dysuria. Neurological: Negative for light-headedness and headaches. Physical Exam Vitals [04/13/24 2159] BP Pulse Temp Temp src Resp SpO2 Weight Height 100/53 79 37 ?C (98.6 ?F) Oral (!) 11 96 % 44.5 kg (98 lb) 1.549 m (5' 1) Physical (more content not included)... Normal [facility] ESR Westergren method (Bld) [Velocity]on 04-14-2024 ESR (Bld) [Velocity] 44 mm/h High 0-20 [facility] Comment on above: Order Comment: Speci men Type: BLOOD SPECIMEN Ordering Facility: [facility] Address: [address] [place] [address] Performed By: #### 5 8410-2 #### [facility] CLIA [id number] 1 [place] [address] [place] Gram Stainon 04-14-2024 GS RIGHT Gram Stain Rare Gram positive cocci 2+ Red Blood Cells No Epithelial cells Normal [facility] Comment on above: Performed By: #### M 100.4001, M100.3000, M100.1999 ####[facility] [address] [place], [address] HISTORY PHYSICALon 4 HISTORY PHYSICAL HNO ID: [id number] Author: CASE PHAN MD Service: Hospital Medicine Author Type: Resident Type: H&P Filed: 04/14/2024 21:16 Note Text: Attestation signed by Case Phan MD at 04/14/2024 9:16 PM [facility] ATTENDING ATTESTATION: I saw and evaluated the patient on rounds on 04/14/24. Discussed case with the medicine team and agree with resident's findings and plan as documented in the resident's note. I spent a total of >75 minutes on the date of the service which included preparing to see the patient, [id number] patient care, completing clinical documentation, obtaining and/or reviewing separately obtained history, and performing a medically appropriate examination. See additional comments of progress notes on 04/14/2024. Case Phan MD [facility] [facility] PATIENT NAME: Aleena Andrea ADMITTED FOR: DATE: 04/13/2024 Subjective HPI Ms. 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 not on meds -HTN on clonidine -Depression on trazodone, duloxetine -Chronic sacral decubitus ulcers -Chronic pain on intrathecal pain pump, baclofen, gabapentin, oxycodone, amitriptyline, trazodone, tizanidine, naproxen Patient presented to [facility] from [facility] ED by EMS for hip pain for 1 week with progressive wounds on R hip. CTAP from [facility] showed right sided 8.5x8.3cm subcutaneous abscess extending into the right ischial rectal fossa along with extensive soft tissue edema/cellulitis. This finding is new since last CT scan 09/2022. General surgery saw patient and will plan for possible debridement. But with multiple comorbidities will admit to medicine floor. Denies fevers, chills, abdominal pain, N, or vomiting. On arrival to ED, BP 100/53, HR 79, afebrile, SpO2 96% on RA. CBC with leukocytosis of 11.57, chronic stable anemia at 9.0, plt count elevated at 617 (likely reactive). CMP with Cr stable. Developed soft pressure of 70/50s. Given fluids. Nurse does suspect patient took medication from home possibly while in the ED. Sepsis lactate 0.6. UA unremarkable. On my assessment, patient resting comfortably in bed very lethargic however is arousable. Difficult to obtain further history. When asked nurse, stated patient did take all of her oral pain meds and clonidine which she had on her and she takes every night. Denies tobacco, alcohol, illicit drug/marijuana use. PAST MEDICAL HISTORY Diagnosis Date Acute gastritis without mention of hemorrhage Anemia, unspecified CAD (coronary artery disease) CHF (congestive heart failure) ([facility]) Chronic pain Depression Dysphagia Internal hemorrhoids without mention of complication Migraine, unspecified, without mention of intractable migraine without mention of status migrainosus Mononeuritis of unspecified site 07/02 Neuropathy Nonorganic sleep disorder, unspecified Nonspecific abnormal finding in stool contents Osteoporosis, unspecified Other causes of myelitis Other general symptoms(780.99) Paraplegia ([facility]) PMH - PAST MEDICAL HISTORY OF transverse [...] IF PFRMD 12/01/13 Sigmoidoscopy, flexible TONSILLECTOMY PRIMARY/SECONDARY FAMILY HISTORY Problem Relation Age of Onset Colon Cancer Father 85 Ischemic Heart Disease Mother [place] ( in 2001) Osteoporosis Mother other (MS) Other none other (Other) Other No breast/motor vehicles supervisor/colon cancer Colon Cancer Sister 62 Social History Tobacco Use Smoking status: Never Smokeless tobacco: Never Substance Use Topics Alcohol use: No Drug use: No No current facility-administered medications on file prior to encounter. Current Outpatient Medications on File Prior to Encounter Medication Sig oxycodone HCl (OXYCODONE ORAL) Take 15 mg by mouth four times daily. bisacodyl EC (DULCOLAX) 5 mg EC tablet Take 2 tablets by (more content not included)... Normal [facility] HbA1c (Bld)on 04-14-2024 Average glucose Estimated from glycated hemoglobin (Bld) [Mass/Vol] 82 mg/dL Normal [facility] Comment on above: Order Comment: Speci men Type: BLOOD SPECIMEN Ordering Facility: [facility] Address: [address] [place] [address] Result Comment: eAG: (Estimated average glucose) is a calculated value from HgbA1c and is claim representative of the average blood glucose level in the last 2-3 month period. Performed By: #### 5 8410-2 #### [facility] CLIA [id number] 1 [place] [address] [place] HbA1c (Bld) [Mass fraction] 4.5 % Normal 4.3-5.6 [facility] Comment on above: Order Comment: Shayy abhishek Type: BLOOD SPECIMEN Ordering Facility: [facility] Address: [address] [place] [address] Result Comment: Amer ican Diabetes Association guidelines indicate that patients with HgbA1c in the range 5.7-6.4% are at increased risk for development of diabetes, and intervention by lifestyle modification may be beneficial. HgbA1c greater or equal to 6.5% is considered diagnostic of diabetes. Performed By: #### 5 8410-2 #### [facility] CLIA [id number] [address] OF [place] LIPID PANEL, NONFASTINGon Cholesterol [Mass/Vol] 89 mg/dL Normal <200 [facility] Comment on above: Order Comment: Shayy abhishek Type: BLOOD SPECIMEN Ordering Facility: [facility] Address: [address] [place] [address] Result Comment: <200 mg/dL, Desirable 200-239 mg/dL, Borderline high >239 mg/dL, High Performed By: #### 5 8410-2 #### [facility] CLIA [id number] [address] [place] HDL CHOLESTEROL, NF 29 mg/dL Low >39 [facility] Comment on above: Order Comment: Shayy abhishek Type: BLOOD SPECIMEN Ordering Facility: [facility] Address: [address] [place] [address] Result Comment: 40-5 9 mg/dL, Acceptable >59 mg/dL, High: Negative risk factor for coronary heart disease <40 mg/dL, Low: Positive risk factor for coronary heart disease Performed By: #### 5 8410-2 #### [facility] CLIA [id number] [address] [place] LDL CHOLESTEROL, NF 51 mg/dL Normal <100 [facility] Comment on above: Order Comment: Shayy abhishek Type: BLOOD SPECIMEN Ordering Facility: [facility] Address: [address] [place] [address] Result Comment: <100 mg/dL, Optimal 100-129 mg/dL, Near optimal/above optimal 130-159 mg/dL, Borderline high 160-189 mg/dL, High >189 mg/dL, Very high Secondary prevention optimal LDL Cholesterol levels are recommended to be < 70 mg/dL Performed By: #### 5 8410-2 #### [facility] CLIA [id number] [address] LDL/HDL RATIO, NF 1.76 mg/dL Normal <2.54 [facility] Comment on above: Order Comment: Speci men Type: BLOOD SPECIMEN Ordering Facility: [facility] Address: [address] [place] [address] Result Comment: Refe rence: 1. National Cholesterol Education Program ATP III Guideline At-A-Glance Quick Desk Reference: National Heart, Lung, and Blood [place]. National Institutes of Health. 2001: NIH Publication No. 01-3305. 2. An International Atherosclerosis Society position paper: global recommendations for the management of dyslipidemia: executive summary, Atherosclerosis. 2014: 232(2):410-413. Performed By: #### 5 8410-2 #### [facility] CLIA [id number] [address] NON HDL CHOL, NF 60 mg/dL Normal <130 [facility] Comment on above: Order Comment: Shayy abhishek Type: BLOOD SPECIMEN Ordering Facility: [facility] Address: [address] [place] [address] Result Comment: <130 mg/dL, Optimal 130-159 mg/dL, Near optimal/above optimal 160-189 mg/dL, Borderline high 190-219 mg/dL, High >219 mg/dL, Very high Secondary prevention optimal non HDL Cholesterol levels are recommended to be <100 mg/dL Performed By: #### 5 8410-2 #### [facility] CLIA [id number] [address] T CHOL/HDL RATIO NF 3.07 mg/dL Normal <5.10 [facility] Comment on above: Order Comment: Shayy abhishek Type: BLOOD SPECIMEN Ordering Facility: [facility] Address: [address] [place] [address] Performed By: #### 5 8410-2 #### [facility] CLIA [id number] [address] TRIGLYCERIDES, NF 47 mg/dL Normal <150 [facility] Comment on above: Order Comment: Speci men Type: BLOOD SPECIMEN Ordering Facility: [facility] Address: [address] [place] [address] Result Comment: <150 mg/dL, Normal 150-199 mg/dL, Borderline high 200-499 mg/dL, High >499 mg/dL, Very high Performed By: #### 5 8410-2 #### [facility] CLIA [id number] [address] VLDL CHOLESTEROL, NF 9 mg/dL Normal <30 [facility] Comment on above: Order Comment: Specantony weiss Type: BLOOD SPECIMEN Ordering Facility: [facility] Address: [address] [place] [address] Performed By: #### 5 8410-2 #### [facility] CLIA [id number] [address] NURSING PROGon 04-14-2024 NURSING PROG HNO ID: [id number] Author: ABDIAZIZ CONDE RN Service: Nursing Author Type: Registered Nurse Type: Nursing Progress Note Filed: 04/14/2024 18:34 Note Text: 04/14/2024 Pump information from home nurse (on her chart on pt's phone) The pump is a Medtronic Synchromed II. Pump capacity is 20 cc. Concentrations in the pump are Dilaudid 32 mg bupivcaine 30mg and baclofen 2000 (???) It is running at simple continuous rate 18.478 mg per day. Next refill is scheduled for Apr 19, Thursday. Pump alarms date is Apr 23 and the pump will be dry on Apr 25. Forwarded to pharmacist AND attending This note was completed by: Abdiaziz Conde RN [facility] OPERATIVE NOon 04-14-2024 OPERATIVE NO HNO ID: [id number] Author: CASE ERICKSON MD Service: General Surgery Author Type: Resident Type: Operative Report Filed: 04/30/2024 16:14 Note Text: Attestation signed by Case Erickson MD at 04/30/2024 4:14 PM Attestation: I was present for the critical and alvarez portions of the surgery and I was immediately available to provide assistance. Case Erickson MD OPERATIVE/PROCEDURE REPORT LOG ID: [id number] Surgery/Procedure Date: 04/14/2024 Incision/Procedure Start Time: 1:18 PM Incision Close/Procedure End Time: 1:36 PM Surgeon(s)/Procedural ist(s) and Chip Person(s): Surgeons and Role: * Case Erickson MD - Primary * Edward Lubin DO - Resident - Assisting Procedure(s): Debridement of right ischial pressure ulcer Anesthesia: General History and indications for surgery: 73 year old female with PMHx of CAD, CHF, depression, hemorrhoids, osteoporosis, constipation, intrathecal pain pump, transverse myelitis causing LE paralysis presents to hospital with concerns of pressure ulcer of right ischium. After RBA discussed patient agreed to proceed with operative debridement Pre-Op/Pre-Procedure Diagnosis: Right ischial ulcer Post-Op/Post-Procedur e Diagnosis: same Findings: 8x4cm ischial ulcer debrided. Procedure Details: The patient was brought to the operating room and identified by name and date of . The operative site and procedure were confirmed with the patient, surgical, nursing, and anesthesia teams. The patient was placed in the supine position on the operating table. Hair was clipped in the operative field where necessary. The skin was prepped and draped in the standard fashion. A time out was performed again identifying the patient, the procedure and the operative site. There was noted to be necrotic tissue within the ulcer bed. The skin and subcutaneous tissue was debrided until healthy tissue was identified. Bleed was noted from healthly tissue. This was control with electrocautery. The wound measure 8x4cm. The wound was packed with betadine soaked kerlex and ABD placed on top. The patient was taken to PACU in stable condition. The ulcer was debrided down to health tissue. Estimated Blood Loss: 25 mls Specimens: * No specimens in log * Drains: None Complications: None Sponge, needle, instrument and towel counts: correct. Wound Class: Class 4, operative dirty wound with presence of retained devitalized tissue ATTESTATION: The attending surgeon was present throughout the operation and accomplished the procedure with the assistance of the resident. SIGNATURE: Edward Lubin DO PATIENT NAME: Aleena Andrea DATE: April 14, 2024 TIME: 2:28 PM PAGER/CONTACT #: [id number] Normal [facility] Urinalysis complete panel (U )on 04-14-2024 Bilirubin Ql (U) Negative Normal Negative [facility] Comment on above: Order Comment: Speci men Type: BLOOD SPECIMEN Ordering Facility: [facility] Address: [address] [place] [address] Performed By: #### 5 8410-2 #### [facility] CLIA [id number] 1 [place] [address] [place] Clarity (Unsp spec) Clear Normal Clear [facility] Comment on above: Order Comment: Speci men Type: BLOOD SPECIMEN Ordering Facility: [facility] Address: [address] [place] [address] Performed By: #### 5 8410-2 #### [facility] CLIA [id number] [address] [place] Color (U) Light Yellow Normal yellow [facility] Comment on above: Order Comment: Speci men Type: BLOOD SPECIMEN Ordering Facility: [facility] Address: [address] [place] [address] Performed By: #### 5 8410-2 #### [facility] CLIA [id number] [address] Glucose Test strip (U) [Mass/Vol] Negative Normal Trace, Negative [facility] Comment on above: Order Comment: Speci men Type: BLOOD SPECIMEN Ordering Facility: [facility] Address: [address] [place] [address] Performed By: #### 5 8410-2 #### [facility] CLIA [id number] [address] Hemoglobin Ql (U) Negative Normal Negative, Trace [facility] Comment on above: Order Comment: Speci men Type: BLOOD SPECIMEN Ordering Facility: [facility] Address: [facility] [place] [address] Performed By: #### 5 8410-2 #### [facility] CLIA [id number] [address] Ketones Ql (U) Negative Normal Negative, Trace [facility] Comment on above: Order Comment: Speci men Type: BLOOD SPECIMEN Ordering Facility: [facility] Address: [address] [place] [address] Performed By: #### 5 8410-2 #### [facility] CLIA [id number] [address] Leukocyte esterase Test strip Ql (U) Negative Normal Negative, 25 Ivania/uL [facility] Comment on above: Order Comment: Speci men Type: BLOOD SPECIMEN Ordering Facility: [facility] Address: [address] [place] [address] Performed By: #### 5 8410-2 #### [facility] CLIA [id number] [address] Nitrite Ql (U) Negative Normal Negative [facility] Comment on above: Order Comment: Speci men Type: BLOOD SPECIMEN Ordering Facility: [facility] Address: [address] [place] [address] Performed By: #### 5 8410-2 #### [facility] CLIA [id number] [address] pH (U) 7.0 [pH] Normal 5.0-8.0 [facility] Comment on above: Order Comment: Speci men Type: BLOOD SPECIMEN Ordering Facility: [facility] Address: [address] [place] [address] Performed By: #### 5 8410-2 #### [facility] CLIA [id number] [address] Protein (U) [Mass/Vol] Negative Normal Trace , Negative [facility] Comment on above: Order Comment: Speci men Type: BLOOD SPECIMEN Ordering Facility: [facility] Address: [address] [place] [address] Performed By: #### 5 8410-2 #### [facility] CLIA [id number] [address] RBC LM.HPF (Urine sed) [#/Area] 3-5 /HPF Abnormal 0-3 /HPF [facility] Comment on above: Order Comment: Speci men Type: BLOOD SPECIMEN Ordering Facility: [facility] Address: [address] [place] [address] Performed By: #### 5 8410-2 #### [facility] CLIA [id number] [address] Specific gravity (U) [Rel density] 1.015 Normal 1.005-1.030 [facility] Comment on above: Order Comment: Speci men Type: BLOOD SPECIMEN Ordering Facility: [facility] Address: [address] [place] [address] Performed By: #### 5 8410-2 #### [facility] CLIA [id number] [address] Urobilinogen Ql (U) Normal Normal Normal [facility] Comment on above: Order Comment: Speci men Type: BLOOD SPECIMEN Ordering Facility: [facility] Address: [address] [place] [address] Performed By: #### 5 8410-2 #### [facility] CLIA [id number] [address] [place] WBC LM.HPF (Urine sed) [#/Area] 0-5 /HPF Normal 0-5 /HPF [facility] Comment on above: Order Comment: Speci men Type: BLOOD SPECIMEN Ordering Facility: [facility] Address: [address] [place] [address] Performed By: #### 5 8410-2 #### [facility] CLIA [id number] [address] [place] Bacteria Bld Culton 04-13-20 24 Bacteria identified Cx Nom (Bld) CULTURE, BLOOD: No growth 5 days Normal [facility] Comment on above: Performed By: #### 6 00-7 #### [facility] CLIA [id number] [address] OF [facility] Bacteria identified Cx Nom (Bld) ORGANISM ID: 1 Culture report of Staphylococcus hominis Probable contaminant. Susceptibility testing will not be performed. Call lab within 72 hours to initiate workup if clinically indicated. GRAM STAIN: Gram positive cocci in clusters Abnormal [facility] Comment on above: Performed By: #### I DBCGP, 600-7 ####[facility] [id number] [address] [place] Basic Metabolic Profile (BMP )on 04-13-2024 BUN/CRE 22.4 RATIO High 10-20 [facility] Comment on above: Performed By: #### L 101.9900, L501.6710, L100.0100, L500.2500 ####[facility] [address] [place], [address] CA,Total 8.0 mg/dL Low 8.5-10.1 [facility] Comment on above: Performed By: #### L 101.9900, L501.6710, L100.0100, L500.2500 ####[facility] [address] [place], [address] Chloride [Moles/Vol] 98 mmol/L Normal 98-107 [facility] Comment on above: Performed By: #### L 101.9900, L501.6710, L100.0100, L500.2500 ####[facility] [address] [place], [address] CO2 [Moles/Vol] 30.0 mmol/L Normal 21.0-32.0 [facility] Comment on above: Performed By: #### L 101.9900, L501.6710, L100.0100, L500.2500 ####[facility] [address] [place], [address] Creatinine [Mass/Vol] 0.40 mg/dL Low 0.55-1.02 [facility] Comment on above: Result Comment: The validity of the calculated GFR GFRAA in patients over70 years has not been determined. Clinical correlation isessential. Performed By: #### L 101.9900, L501.6710, L100.0100, L500.2500 ####[facility] [address] [place], [address] ECRCL 50.27 ml/min Normal [facility] Comment on above: Performed By: #### L 101.9900, L501.6710, L100.0100, L500.2500 ####[facility] [address] [place], [address] EST GFR - AA 200 mL/min Normal >60 [facility] Comment on above: Result Comment: Afri can [place] GFR Calc Performed By: #### L 101.9900, L501.6710, L100.0100, L500.2500 ####[facility] [address] [place], [address] GAP 2 Low 5-15 [facility] Comment on above: Performed By: #### L 101.9900, L501.6710, L100.0100, L500.2500 ####[facility] [address] [place], [address] GFR/1.73 sq M.predicted among non-blacks MDRD (S/P/Bld) [Vol rate/Area] 165 mL/min/{1.73_m2} Normal >60 [facility] Comment on above: Result Comment: Non- GFR Calc Performed By: #### L 101.9900, L501.6710, L100.0100, L500.2500 ####[facility] [address] [place], [address] Glucose [Mass/Vol] 126 mg/dL High 74-106 [facility] Comment on above: Result Comment: Fast ing Glucose result greater than or equal to 126 mg/dLsuggests DIABETES MELLITUS per A.D.A. criteria. Performed By: #### L 101.9900, L501.6710, L100.0100, L500.2500 ####[facility] [address] [place], [address] Potassium [Moles/Vol] 4.1 mmol/L Normal 3.5-5.1 [facility] Comment on above: Performed By: #### L 101.9900, L501.6710, L100.0100, L500.2500 ####[facility] [address] [place], [address] Sodium [Moles/Vol] 130 mmol/L Low 136-145 [facility] Comment on above: Performed By: #### L 101.9900, L501.6710, L100.0100, L500.2500 ####[facility] [address] [place], [address] Urea nitrogen [Mass/Vol] 9 mg/dL Normal 7-18 [facility] Comment on above: Performed By: #### L 101.9900, L501.6710, L100.0100, L500.2500 ####[facility] [address] [place], [address] CBC W Auto Differential pane l (Bld)on 04-13-2024 Basophils (Bld) [#/Vol] 0.09 10*3/uL Normal <0.11 [facility] Comment on above: Order Comment: Speci men Type: BLOOD SPECIMEN Ordering Facility: [facility] Address: [address] [place] [address] Performed By: #### 5 7021-8 #### [facility] CLIA [id number] [address] [place] Basophils/100 WBC (Bld) 0.8 % Normal [facility] Comment on above: Order Comment: Speci men Type: BLOOD SPECIMEN Ordering Facility: [facility] Address: [address] [place] [address] Performed By: #### 5 7021-8 #### [facility] CLIA [id number] [address] [place] Differential cell count method Nom (Bld) Auto Normal [facility] Comment on above: Order Comment: Speci men Type: BLOOD SPECIMEN Ordering Facility: [facility] Address: [address] [place] [address] Performed By: #### 5 7021-8 #### [facility] CLIA [id number] [address] [place] Eosinophils (Bld) [#/Vol] 0.11 10*3/uL Normal <0.46 [facility] Comment on above: Order Comment: Speci men Type: BLOOD SPECIMEN Ordering Facility: [facility] Address: [address] [place] [address] Performed By: #### 5 7021-8 #### [facility] CLIA [id number] [address] [place] Eosinophils/100 WBC (Bld) 1.0 % Normal [facility] Comment on above: Order Comment: Speci men Type: BLOOD SPECIMEN Ordering Facility: [facility] Address: [address] [place] [address] Performed By: #### 5 7021-8 #### [facility] CLIA [id number] [address] [place] Erythrocyte distribution width (RBC) [Ratio] 15.8 % High 11.5-15.0 [facility] Comment on above: Order Comment: Speci men Type: BLOOD SPECIMEN Ordering Facility: [facility] Address: [address] [place] [address] Performed By: #### 5 7021-8 #### [facility] CLIA [id number] [address] [place] Hematocrit (Bld) [Volume fraction] 28.1 % Low 36.0-46.0 [facility] Comment on above: Order Comment: Speci men Type: BLOOD SPECIMEN Ordering Facility: [facility] Address: [address] [place] [address] Performed By: #### 5 7021-8 #### [facility] CLIA [id number] [address] [place] Hemoglobin (Bld) [Mass/Vol] 9.0 g/dL Low 11.5-15.5 [facility] Comment on above: Order Comment: Speci men Type: BLOOD SPECIMEN Ordering Facility: [facility] Address: [address] [place] [address] Performed By: #### 5 7021-8 #### [facility] CLIA [id number] [address] OF [facility] Immature granulocytes (Bld) [#/Vol] 0.24 10*3/uL High <0.10 [facility] Comment on above: Order Comment: Speci men Type: BLOOD SPECIMEN Ordering Facility: [facility] Address: [address] [place] [address] Performed By: #### 5 7021-8 #### [facility] CLIA [id number] [address] [place] Immature granulocytes/100 WBC (Bld) 2.1 % Normal [facility] Comment on above: Order Comment: Speci men Type: BLOOD SPECIMEN Ordering Facility: [facility] Address: [address] [place] [address] Performed By: #### 5 7021-8 #### [facility] CLIA [id number] [address] Lymphocytes (Bld) [#/Vol] 1.16 10*3/uL Normal 1.00-4.0 0 [facility] Comment on above: Order Comment: Speci men Type: BLOOD SPECIMEN Ordering Facility: [facility] Address: [address] [place] [address] Performed By: #### 5 7021-8 #### [facility] CLIA [id number] [address] Lymphocytes/100 WBC (Bld) 10.0 % Normal [facility] Comment on above: Order Comment: Speci men Type: BLOOD SPECIMEN Ordering Facility: [facility] Address: [address] [place] [address] Performed By: #### 5 7021-8 #### [facility] CLIA [id number] [address] MCH (RBC) [Entitic mass] 32.5 pg Normal 26.0-34.0 [facility] Comment on above: Order Comment: Speci men Type: BLOOD SPECIMEN Ordering Facility: [facility] Address: [address] [place] [address] Performed By: #### 5 7021-8 #### [facility] CLIA [id number] [address] MCHC (RBC) [Mass/Vol] 32.0 g/dL Normal 30.5-36.0 [facility] Comment on above: Order Comment: Speci men Type: BLOOD SPECIMEN Ordering Facility: [facility] Address: [address] [place] [address] Performed By: #### 5 7021-8 #### [facility] CLIA [id number] [address] MCV (RBC) [Entitic vol] 101.4 fL High 80.0-100.0 [facility] Comment on above: Order Comment: Speci men Type: BLOOD SPECIMEN Ordering Facility: [facility] Address: [address] [place] [address] Performed By: #### 5 7021-8 #### [facility] CLIA [id number] [address] [place] Monocytes (Bld) [#/Vol] 0.69 10*3/uL Normal <0.87 [facility] Comment on above: Order Comment: Speci men Type: BLOOD SPECIMEN Ordering Facility: [facility] Address: [address] [place] [address] Performed By: #### 5 7021-8 #### [facility] CLIA [id number] [address] Monocytes/100 WBC (Bld) 6.0 % Normal [facility] Comment on above: Order Comment: Speci men Type: BLOOD SPECIMEN Ordering Facility: [facility] Address: [address] [place] [address] Performed By: #### 5 7021-8 #### [facility] CLIA [id number] [address] [place] Neutrophils (Bld) [#/Vol] 9.28 10*3/uL High 1.45-7.5 0 [facility] Comment on above: Order Comment: Speci men Type: BLOOD SPECIMEN Ordering Facility: [facility] Address: [address] [place] [address] Performed By: #### 5 7021-8 #### [facility] CLIA [id number] [address] [place] Neutrophils/100 WBC (Bld) 80.1 % Normal [facility] Comment on above: Order Comment: Speci men Type: BLOOD SPECIMEN Ordering Facility: [facility] Address: [address] [place] [address] Performed By: #### 5 7021-8 #### [facility] CLIA [id number] [address] [place] Nucleated RBC (Bld) [#/Vol] 10*3/uL Normal <0.01 [facility] Comment on above: Order Comment: Speci men Type: BLOOD SPECIMEN Ordering Facility: [facility] Address: [address] [place] [address] Performed By: #### 5 7021-8 #### [facility] CLIA [id number] [address] [place] Nucleated RBC/100 WBC (Bld) [Ratio] 0.0 /100 WBC Normal [facility] Comment on above: Order Comment: Speci men Type: BLOOD SPECIMEN Ordering Facility: [facility] Address: [address] [place] [address] Performed By: #### 5 7021-8 #### [facility] CLIA [id number] [address] [place] Platelet mean volume (Bld) [Entitic vol] 9.0 fL Normal 9.0-12.7 [facility] Comment on above: Order Comment: Speci men Type: BLOOD SPECIMEN Ordering Facility: [facility] Address: [address] [place] [address] Performed By: #### 5 7021-8 #### [facility] CLIA [id number] [address] [place] Platelets (Bld) [#/Vol] 617 10*3/uL High 150-400 [facility] Comment on above: Order Comment: Speci men Type: BLOOD SPECIMEN Ordering Facility: [facility] Address: [address] [place] [address] Performed By: #### 5 7021-8 #### [facility] CLIA [id number] [address] [place] RBC (Bld) [#/Vol] 2.77 10*6/uL Low 3.90-5.20 [facility] Comment on above: Order Comment: Speci men Type: BLOOD SPECIMEN Ordering Facility: [facility] Address: [address] [place] [address] Performed By: #### 5 7021-8 #### [facility] CLIA [id number] 1 [place] [address] [place] WBC (Bld) [#/Vol] 11.57 10*3/uL High 3.70-11.00 [facility] Comment on above: Order Comment: Speci men Type: BLOOD SPECIMEN Ordering Facility: [facility] Address: [address] [place] [address] Performed By: #### 5 7021-8 #### [facility] CLIA [id number] 1 [place] [address] [place] CBC W/Diff, Automatedon 12- Absolute Lymph 0.56 X10 3/uL Low 0.83-4.51 [facility] Comment on above: Performed By: #### L 101.9900, L501.6710, L100.0100, L500.2500 ####[facility] [address] [place], [address] Absolute Neut 10.1 X10 3/uL High 2.0-7.7 [facility] Comment on above: Performed By: #### L 101.9900, L501.6710, L100.0100, L500.2500 ####[facility] [address] [place], [address] Basophils/100 WBC (Bld) 0.6 % Normal 0-1 [facility] Comment on above: Performed By: #### L 101.9900, L501.6710, L100.0100, L500.2500 ####[facility] [address] [place], [address] Eosinophils/100 WBC (Bld) 0.4 % Normal 0-5 [facility] Comment on above: Performed By: #### L 101.9900, L501.6710, L100.0100, L500.2500 ####[facility] [address] [place], [address] Erythrocyte distribution width (RBC) [Ratio] 15.8 % High 11.6-14.6 [facility] Comment on above: Performed By: #### L 101.9900, L501.6710, L100.0100, L500.2500 ####[facility] [address] [place], [address] Hematocrit (Bld) [Volume fraction] 26.6 % Low 37-47 [facility] Comment on above: Performed By: #### L 101.9900, L501.6710, L100.0100, L500.2500 ####[facility] [address] [place], [address] Hemoglobin (Bld) [Mass/Vol] 8.6 g/dL Low 12.0-15.0 [facility] Comment on above: Performed By: #### L 101.9900, L501.6710, L100.0100, L500.2500 ####[facility] [address] [place], [address] IG% 1.700 High 0.0-0.9 [facility] Comment on above: Result Comment: IG% - Immature Granulocytes (promyelocytes, myelocytes andmetamyelocytes) > 1% indicates that a LEFT SHIFT is Present. Performed By: #### L 101.9900, L501.6710, L100.0100, L500.2500 ####[facility] [address] [place], [address] Lymphocytes/100 WBC (Bld) 4.7 % Low 19-41 [facility] Comment on above: Performed By: #### L 101.9900, L501.6710, L100.0100, L500.2500 ####[facility] [address] [place], [address] MCH (RBC) [Entitic mass] 31.9 pg Normal 27.0-32.0 [facility] Comment on above: Performed By: #### L 101.9900, L501.6710, L100.0100, L500.2500 ####[facility] [address] [place], [address] MCHC (RBC) [Mass/Vol] 32.3 g/dL Normal 32-36 [facility] Comment on above: Performed By: #### L 101.9900, L501.6710, L100.0100, L500.2500 ####[facility] [address] [place], [address] MCV (RBC) [Entitic vol] 98.5 fL Normal 81-99 [facility] Comment on above: Performed By: #### L 101.9900, L501.6710, L100.0100, L500.2500 ####[facility] [address] [place], [address] Monocytes/100 WBC (Bld) 8.0 % Normal 0-10 [facility] Comment on above: Performed By: #### L 101.9900, L501.6710, L100.0100, L500.2500 ####[facility] [address] [place], [address] Neutrophils/100 WBC (Bld) 84.6 % High 47-70 [facility] Comment on above: Performed By: #### L 101.9900, L501.6710, L100.0100, L500.2500 ####[facility] [address] [place], [address] Nucleated RBC (Bld) [#/Vol] 0 10*3/uL Normal 0-5 [facility] Comment on above: Performed By: #### L 101.9900, L501.6710, L100.0100, L500.2500 ####[facility] [address] [place], [address] Platelet mean volume (Bld) [Entitic vol] 9.2 fL Normal 6.2-12.0 [facility] Comment on above: Performed By: #### L 101.9900, L501.6710, L100.0100, L500.2500 ####[facility] [address] [place], [address] Platelets (Bld) [#/Vol] 617 10*3/uL High 150-450 [facility] Comment on above: Performed By: #### L 101.9900, L501.6710, L100.0100, L500.2500 ####[facility] [address] [place], [address] RBC (Bld) [#/Vol] 2.70 10*6/uL Low 4.2-5.4 [facility] Comment on above: Performed By: #### L 101.9900, L501.6710, L100.0100, L500.2500 ####[facility] [address] [place], [address] RDW SD 55.7 fl High 35.1-43.9 [facility] Comment on above: Performed By: #### L 101.9900, L501.6710, L100.0100, L500.2500 ####[facility] [address] [place], [address] WBC (Bld) [#/Vol] 11.9 10*3/uL High 4.4-11.0 [facility] Comment on above: Performed By: #### L 101.9900, L501.6710, L100.0100, L500.2500 ####[facility] [address] [place], [address] CRPon 04-13-2024 C-REACTIVE PROT 24.90 mg/L High 0.0-3.0 [facility] Comment on above: Result Comment: C-Re active Protein (CRP) provides useful information for thediagnosis, therapy and monitoring of inflammatory processesand associated diseases. For the evaluation of Relative Riskfor Cardiovascular Disease, a High Sensitivity CRP (HSCRP)should be ordered. Performed By: #### L 101.9900, L501.6710, L100.0100, L500.2500 ####[facility] [address] [place], [address] Comprehensive metabolic 2000 panelon 04-13-2024 Albumin [Mass/Vol] 2.7 g/dL Low 3.9-4.9 [facility] Comment on above: Order Comment: Speci men Type: BLOOD SPECIMEN Ordering Facility: [facility] Address: [address] [place] [address] Performed By: #### C RET1 #### [facility] CLIA [id number] [address] ALP [Catalytic activity/Vol] 84 U/L Normal 34-123 [facility] Comment on above: Order Comment: Speci men Type: BLOOD SPECIMEN Ordering Facility: [facility] Address: [address] [place] [address] Performed By: #### C RET1 #### [facility] CLIA [id number] [address] OF [facility] ALT With P-5'-P [Catalytic activity/Vol] 9 U/L Normal 7-38 [facility] Comment on above: Order Comment: Speci men Type: BLOOD SPECIMEN Ordering Facility: [facility] Address: [address] [place] [address] Performed By: #### C RET1 #### [facility] CLIA [id number] [address] Anion gap [Moles/Vol] 8 mmol/L Normal 8-15 [facility] Comment on above: Order Comment: Speci men Type: BLOOD SPECIMEN Ordering Facility: [facility] Address: [facility] [place] [address] Performed By: #### C RET1 #### [facility] CLIA [id number] [address] OF [place] AST With P-5'-P [Catalytic activity/Vol] 16 U/L Normal 13-35 [facility] Comment on above: Order Comment: Speci men Type: BLOOD SPECIMEN Ordering Facility: [facility] Address: [address] [place] [address] Performed By: #### C RET1 #### [facility] CLIA [id number] [address] [place] Bilirubin [Mass/Vol] 0.2 mg/dL Normal 0.2-1.3 [facility] Comment on above: Order Comment: Speci men Type: BLOOD SPECIMEN Ordering Facility: [facility] Address: [address] [place] [address] Performed By: #### C RET1 #### [facility] CLIA [id number] 1 [place] [address] [place] Calcium [Mass/Vol] 8.2 mg/dL Low 8.5-10.2 [facility] Comment on above: Order Comment: Speci men Type: BLOOD SPECIMEN Ordering Facility: [facility] Address: [address] [place] [address] Performed By: #### C RET1 #### [facility] CLIA [id number] 1 [place] [address] [place] Chloride [Moles/Vol] 95 mmol/L Low 98-107 [facility] Comment on above: Order Comment: Speci men Type: BLOOD SPECIMEN Ordering Facility: [facility] Address: [address] [place] [address] Performed By: #### C RET1 #### [facility] CLIA [id number] 1 [place] [address] [place] CO2 [Moles/Vol] 28 mmol/L Normal 22-30 [facility] Comment on above: Order Comment: Speci men Type: BLOOD SPECIMEN Ordering Facility: [facility] Address: [facility] [place] [address] Performed By: #### C RET1 #### [facility] CLIA [id number] 1 [place] [address] [place] Creatinine [Mass/Vol] 0.36 mg/dL Low 0.58-0.96 [facility] Comment on above: Order Comment: Shayy weiss Type: BLOOD SPECIMEN Ordering Facility: [facility] Address: [address] [place] [address] Performed By: #### C RET1 #### [facility] CLIA [id number] [address] OF [place] Creatinine and Glomerular filtration rate.predicted panel (S/P/Bld) 108 mL/min/1.73m??? Normal >=60 [facility] Comment on above: Order Comment: Shayy weiss Type: BLOOD SPECIMEN Ordering Facility: [facility] Address: [address] [place] [address] Result Comment: Kristina mated Glomerular Filtration Rate (eGFR) is calculated using the 2020 CKD-EPI creatinine equation. This equation utilizes serum creatinine, sex, and age as parameters. The creatinine assay has traceable calibration to isotope dilution-mass spectrometry. Refer to KDIGO guidelines for clinical interpretation. In patients with unstable renal function, e.g. those with acute kidney injury, the eGFR may not accurately reflect actual GFR. Performed By: #### C RET1 #### [facility] CLIA [id number] [address] [place] [address] [place] Glucose [Mass/Vol] 86 mg/dL Normal 74-99 [facility] Comment on above: Order Comment: Shayy weiss Type: BLOOD SPECIMEN Ordering Facility: [facility] Address: [address] [place] [address] Result Comment: The [place] Diabetes Association (ADA) provides guidance for cutoff values for fasting glucose and random glucose. The ADA defines fasting as no caloric intake for at least 8 hours. Fasting plasma glucose results between 100 to 125 mg/dL indicate increased risk for diabetes (prediabetes). Fasting plasma glucose results greater than or equal to 126 mg/dL meet the criteria for diagnosis of diabetes. In the absence of unequivocal hyperglycemia, results should be confirmed by repeat testing. In a patient with classic symptoms of hyperglycemia or hyperglycemic crisis, random plasma glucose results greater than or equal to 200 mg/dL meet the criteria for diagnosis of diabetes. Reference: Standards of Medical Care in Diabetes 2016, [place] [employer] Association. Diabetes Care. 2016.39(Suppl 1). Performed By: #### C RET1 #### [facility] CLIA [id number] [address] [place] Potassium [Moles/Vol] 3.7 mmol/L Normal 3.7-5.1 [facility] Comment on above: Order Comment: Speci men Type: BLOOD SPECIMEN Ordering Facility: [facility] Address: [address] [place] [address] Performed By: #### C RET1 #### [facility] CLIA [id number] [address] [place] Protein [Mass/Vol] 6.5 g/dL Normal 6.3-8.0 [facility] Comment on above: Order Comment: Speci men Type: BLOOD SPECIMEN Ordering Facility: [facility] Address: [address] [place] [address] Performed By: #### C RET1 #### [facility] CLIA [id number] [address] OF [facility] Sodium [Moles/Vol] 131 mmol/L Low 136-144 [facility] Comment on above: Order Comment: Speci men Type: BLOOD SPECIMEN Ordering Facility: [facility] Address: [address] [place] [address] Performed By: #### C RET1 #### [facility] CLIA [id number] [address] OF [facility] Urea nitrogen [Mass/Vol] 6 mg/dL Low 7-21 [facility] Comment on above: Order Comment: Speci men Type: BLOOD SPECIMEN Ordering Facility: [facility] Address: [address] [place] [address] Performed By: #### C RET1 #### [facility] CLIA [id number] [address] [place] [address] OF [facility] ED NOTEon 04-13-2024 ED NOTE HNO ID: [id number] Author: CASSANDRA LAMB, EFE Service: Nursing Author Type: Registered Nurse Type: ED Notes Filed: 04/13/2024 22:06 Note Text: Pt is asking about her trazadone and clonidine for this evening. Normal [facility] ED NOTE HNO ID: [id number] Author: CASSANDRA LAMB, RN Service: Nursing Author Type: Registered Nurse Type: ED Notes Filed: 04/13/2024 22:04 Note Text: Pt placed on bilingual sales consultant, bp cuff and pulse ox attached. Pt is aANDox3. 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 Pt is aANDox3. Pt is paralyzed from the waste down d/t transverse myelitis Normal [facility] ED NOTE HNO ID: [id number] Author: CLAUDIO MCCLOUD RN Service: ? Author Type: Registered Nurse Type: ED Notes Filed: 04/13/2024 21:57 Note Text: Bed: 45-ED Expected date: Expected time: Means of arrival: Comments: Que transfer Normal [facility] Emergency Department Summary on 04-13-2024 Emergency Department Summary Normal [facility] Erythrocyte Sed Rateon 04-13 SED RATE 40 mm/hr High 0-30 [facility] Comment on above: Performed By: #### L 101.9900, L501.6710, L100.0100, L500.2500 ####[facility] [address] [place], [address] GRAM POSITIVE ORGANISM ID BY MICROARRAY ([employer])on 04-13-2024 GRAM POSITIVE ORGANISM ID BY MICROARRAY ([employer]) BCID INTERPRETATION: Coagulase negative staphylococci (CoNS, not S. lugdunensis) detected by microarray. Single positive cultures of CoNS usually represent contamination. Call lab within 72 hours if further work up is required. Negative for Streptococcus spp. and Enterococcus spp. by microarray. Abnormal [facility] Comment on above: Performed By: #### I DBCGP, 600-7 #### [facility] CLIA [id number] [address] [place] Lactic Acidon 04-13-2024 Lactate [Moles/Vol] 0.7 mmol/L Normal 0.4-1.9 [facility] Comment on above: Order Comment: Y Performed By: #### L 503.6005 ####[facility] [address] [place], [address] Pelvis WITH IV Contraston Pelvis WITH IV Contrast Normal [facility] SEPSIS LACTATE W/ REFLEX (IN ITIAL)on 04-13-2024 Lactate [Moles/Vol] 0.6 mmol/L Normal 0.0-2.0 [facility] Comment on above: Order Comment: Speci men Type: BLOOD SPECIMEN Ordering Facility: [facility] Address: [address] [place] [address] Performed By: #### 5 8410-2 #### [facility] CLIA [id number] 1 [place], [place] [id number] [place] [address] [place] Basic Metabolic Profile (BMP )on 04-07-2024 BUN Normal 7-18 [facility] Comment on above: Result Comment: Canc elled via OM: Order cancelled - Patient discharged Performed By: #### L 100.0100, L500.2500 ####[facility] [address] [place], [address] BUN/CRE Normal 10-20 [facility] Comment on above: Result Comment: Canc elled via OM: Order cancelled - Patient discharged Performed By: #### L 100.0100, L500.2500 ####[facility] [address] [place], [address] CA,Total Normal 8.5-10.1 [facility] Comment on above: Result Comment: Canc elled via OM: Order cancelled - Patient discharged Performed By: #### L 100.0100, L500.2500 ####[facility] [address] [place], [address] CL Normal 98-107 [facility] Comment on above: Result Comment: Canc elled via OM: Order cancelled - Patient discharged Performed By: #### L 100.0100, L500.2500 ####[facility] [address] [place], [address] CO2 Normal 21.0-32.0 [facility] Comment on above: Result Comment: Canc elled via OM: Order cancelled - Patient discharged Performed By: #### L 100.0100, L500.2500 ####[facility] [address] [place], [address] CREAT,SERUM Normal 0.55-1.02 [facility] Comment on above: Result Comment: Canc elled via OM: Order cancelled - Patient discharged Performed By: #### L 100.0100, L500.2500 ####[facility] [address] [facility] [address] EST GFR Normal >60 [facility] Comment on above: Result Comment: Canc elled via OM: Order cancelled - Patient discharged Performed By: #### L 100.0100, L500.2500 ####[facility] [address] [place], [address] EST GFR - AA Normal >60 [facility] Comment on above: Result Comment: Canc elled via OM: Order cancelled - Patient discharged Performed By: #### L 100.0100, L500.2500 ####[facility] [address] [place], [address] GAP Normal 5-15 [facility] Comment on above: Result Comment: Canc elled via OM: Order cancelled - Patient discharged Performed By: #### L 100.0100, L500.2500 ####[facility] [address] [place], [address] GLU Normal 74-106 [facility] Comment on above: Result Comment: Canc elled via OM: Order cancelled - Patient discharged Performed By: #### L 100.0100, L500.2500 ####[facility] [address] [place], [address] Potassium Normal 3.5-5.1 [facility] Comment on above: Result Comment: Canc elled via OM: Order cancelled - Patient discharged Performed By: #### L 100.0100, L500.2500 ####[facility] [address] [place], [address] Basic Metabolic Profile (BMP) Normal 136-145 [facility] Comment on above: Result Comment: Canc elled via OM: Order cancelled - Patient discharged Performed By: #### L 100.0100, L500.2500 ####[facility] [address] [place], [address] CBC W/Diff, Automatedon 12-0 -2023 Absolute Neut Normal 2.0-7.7 [facility] Comment on above: Result Comment: Canc elled via OM: Order cancelled - Patient discharged Performed By: #### L 100.0100, L500.2500 ####[facility] [address] [place], [address] HCT Normal 37-47 [facility] Comment on above: Result Comment: Canc elled via OM: Order cancelled - Patient discharged Performed By: #### L 100.0100, L500.2500 ####[facility] [address] [place], [address] HGB Normal 12.0-15.0 [facility] Comment on above: Result Comment: Canc elled via OM: Order cancelled - Patient discharged Performed By: #### L 100.0100, L500.2500 ####[facility] [address] [place], [address] MCH Normal 27.0-32.0 [facility] Comment on above: Result Comment: Canc elled via OM: Order cancelled - Patient discharged Performed By: #### L 100.0100, L500.2500 ####[facility] [address] [place], [address] MCHC Normal 32-36 [facility] Comment on above: Result Comment: Canc elled via OM: Order cancelled - Patient discharged Performed By: #### L 100.0100, L500.2500 ####[facility] [address] [place], [address] MCV Normal 81-99 [facility] Comment on above: Result Comment: Canc elled via OM: Order cancelled - Patient discharged Performed By: #### L 100.0100, L500.2500 ####[facility] [address] [place], [address] NEUT% Normal 47-70 [facility] Comment on above: Result Comment: Canc elled via OM: Order cancelled - Patient discharged Performed By: #### L 100.0100, L500.2500 ####[facility] [address] [place], [address] PLT Normal 150-450 [facility] Comment on above: Result Comment: Canc elled via OM: Order cancelled - Patient discharged Performed By: #### L 100.0100, L500.2500 ####[facility] [address] [place], [address] RBC Normal 4.2-5.4 [facility] Comment on above: Result Comment: Canc elled via OM: Order cancelled - Patient discharged Performed By: #### L 100.0100, L500.2500 ####[facility] [address] [place], [address] RDW CV Normal 11.6-14.6 [facility] Comment on above: Result Comment: Canc elled via OM: Order cancelled - Patient discharged Performed By: #### L 100.0100, L500.2500 ####[facility] [address] [place], [address] RDW SD Normal 35.1-43.9 [facility] Comment on above: Result Comment: Canc elled via OM: Order cancelled - Patient discharged Performed By: #### L 100.0100, L500.2500 ####[facility] [address] [place], [address] WBC Normal 4.4-11.0 [facility] Comment on above: Result Comment: Canc elled via OM: Order cancelled - Patient discharged Performed By: #### L 100.0100, L500.2500 ####[facility] [address] [place], [address] Basic Metabolic Profile (BMP )on 04-06-2024 BUN Normal 7-18 [facility] Comment on above: Result Comment: Canc elled via OM: Order cancelled - Patient discharged Performed By: #### L 100.0100, L500.2500 ####[facility] [address] [place], [address] BUN/CRE Normal 10-20 [facility] Comment on above: Result Comment: Canc elled via OM: Order cancelled - Patient discharged Performed By: #### L 100.0100, L500.2500 ####[facility] [address] [place], [address] CA,Total Normal 8.5-10.1 [facility] Comment on above: Result Comment: Canc elled via OM: Order cancelled - Patient discharged Performed By: #### L 100.0100, L500.2500 ####[facility] [address] [place], [address] CL Normal 98-107 [facility] Comment on above: Result Comment: Canc elled via OM: Order cancelled - Patient discharged Performed By: #### L 100.0100, L500.2500 ####[facility] [address] [place], [address] CO2 Normal 21.0-32.0 [facility] Comment on above: Result Comment: Canc elled via OM: Order cancelled - Patient discharged Performed By: #### L 100.0100, L500.2500 ####[facility] [address] [place], [address] CREAT,SERUM Normal 0.55-1.02 [facility] Comment on above: Result Comment: Canc elled via OM: Order cancelled - Patient discharged Performed By: #### L 100.0100, L500.2500 ####[facility] [address] [place], [address] EST GFR Normal >60 [facility] Comment on above: Result Comment: Canc elled via OM: Order cancelled - Patient discharged Performed By: #### L 100.0100, L500.2500 ####[facility] [address] [place], [address] EST GFR - AA Normal >60 [facility] Comment on above: Result Comment: Canc elled via OM: Order cancelled - Patient discharged Performed By: #### L 100.0100, L500.2500 ####[facility] [address] [place], [address] GAP Normal 5-15 [facility] Comment on above: Result Comment: Canc elled via OM: Order cancelled - Patient discharged Performed By: #### L 100.0100, L500.2500 ####[facility] [address] [place], [address] GLU Normal 74-106 [facility] Comment on above: Result Comment: Canc elled via OM: Order cancelled - Patient discharged Performed By: #### L 100.0100, L500.2500 ####[facility] [address] [place], [address] Potassium Normal 3.5-5.1 [facility] Comment on above: Result Comment: Canc elled via OM: Order cancelled - Patient discharged Performed By: #### L 100.0100, L500.2500 ####[facility] [address] [place], [address] Basic Metabolic Profile (BMP) Normal 136-145 [facility] Comment on above: Result Comment: Canc elled via OM: Order cancelled - Patient discharged Performed By: #### L 100.0100, L500.2500 ####[facility] [address] [place], [address] CBC W/Diff, Automatedon 12-0 -2023 Absolute Neut Normal 2.0-7.7 [facility] Comment on above: Result Comment: Canc elled via OM: Order cancelled - Patient discharged Performed By: #### L 100.0100, L500.2500 ####[facility] [address] [place], [address] HCT Normal 37-47 [facility] Comment on above: Result Comment: Canc elled via OM: Order cancelled - Patient discharged Performed By: #### L 100.0100, L500.2500 ####[facility] [address] [place], [address] HGB Normal 12.0-15.0 [facility] Comment on above: Result Comment: Canc elled via OM: Order cancelled - Patient discharged Performed By: #### L 100.0100, L500.2500 ####[facility] [address] [place], [address] MCH Normal 27.0-32.0 [facility] Comment on above: Result Comment: Canc elled via OM: Order cancelled - Patient discharged Performed By: #### L 100.0100, L500.2500 ####[facility] [address] [place], [address] MCHC Normal 32-36 [facility] Comment on above: Result Comment: Canc elled via OM: Order cancelled - Patient discharged Performed By: #### L 100.0100, L500.2500 ####[facility] [address] [place], [address] MCV Normal 81-99 [facility] Comment on above: Result Comment: Canc elled via OM: Order cancelled - Patient discharged Performed By: #### L 100.0100, L500.2500 ####[facility] [address] [place], [address] NEUT% Normal 47-70 [facility] Comment on above: Result Comment: Canc elled via OM: Order cancelled - Patient discharged Performed By: #### L 100.0100, L500.2500 ####[facility] [address] [place], [address] PLT Normal 150-450 [facility] Comment on above: Result Comment: Canc elled via OM: Order cancelled - Patient discharged Performed By: #### L 100.0100, L500.2500 ####[facility] [address] [place], [address] RBC Normal 4.2-5.4 [facility] Comment on above: Result Comment: Canc elled via OM: Order cancelled - Patient discharged Performed By: #### L 100.0100, L500.2500 ####[facility] [address] [place], [address] RDW CV Normal 11.6-14.6 [facility] Comment on above: Result Comment: Canc elled via OM: Order cancelled - Patient discharged Performed By: #### L 100.0100, L500.2500 ####[facility] [address] [place], [address] RDW SD Normal 35.1-43.9 [facility] Comment on above: Result Comment: Canc elled via OM: Order cancelled - Patient discharged Performed By: #### L 100.0100, L500.2500 ####[facility] [address] [place], [address] WBC Normal 4.4-11.0 [facility] Comment on above: Result Comment: Canc elled via OM: Order cancelled - Patient discharged Performed By: #### L 100.0100, L500.2500 ####[facility] [address] [place], [address] Ammoniaon 04-05-2024 Ammonia (P) [Moles/Vol] 13.0 umol/L Normal 11-32 [facility] Comment on above: Performed By: #### L 503.5510 ####[facility] [address] [place], [address] Basic Metabolic Profile (BMP )on 04-05-2024 BUN/CRE 74.1 RATIO High 10-20 [facility] Comment on above: Performed By: #### L 501.5200, L100.0100, L501.2300, L500.2500 ####[facility] [address] [place], [address] CA,Total 8.5 mg/dL Normal 8.5-10.1 [facility] Comment on above: Performed By: #### L 501.5200, L100.0100, L501.2300, L500.2500 ####[facility] [address] [place], [address] Chloride [Moles/Vol] 105 mmol/L Normal 98-107 [facility] Comment on above: Performed By: #### L 501.5200, L100.0100, L501.2300, L500.2500 ####[facility] [address] [place], [address] CO2 [Moles/Vol] 30.0 mmol/L Normal 21.0-32.0 [facility] Comment on above: Performed By: #### L 501.5200, L100.0100, L501.2300, L500.2500 ####[facility] [address] [place], [address] Creatinine [Mass/Vol] 0.30 mg/dL Low 0.55-1.02 [facility] Comment on above: Result Comment: The validity of the calculated GFR GFRAA in patients over70 years has not been determined. Clinical correlation isessential. Performed By: #### L 501.5200, L100.0100, L501.2300, L500.2500 ####[facility] [address] [place], [address] ECRCL 47.36 ml/min Normal [facility] Comment on above: Performed By: #### L 501.5200, L100.0100, L501.2300, L500.2500 ####[facility] [address] [place], [address] EST GFR - AA 284 mL/min Normal >60 [facility] Comment on above: Result Comment: Afri can [place] GFR Calc Performed By: #### L 501.5200, L100.0100, L501.2300, L500.2500 ####[facility] [address] [place], [address] GAP 3 Low 5-15 [facility] Comment on above: Performed By: #### L 501.5200, L100.0100, L501.2300, L500.2500 ####[facility] [address] [place], [address] GFR/1.73 sq M.predicted among non-blacks MDRD (S/P/Bld) [Vol rate/Area] 235 mL/min/{1.73_m2} Normal >60 [facility] Comment on above: Result Comment: Non- GFR Calc Performed By: #### L 501.5200, L100.0100, L501.2300, L500.2500 ####[facility] [address] [place], [address] Glucose [Mass/Vol] 114 mg/dL High 74-106 [facility] Comment on above: Result Comment: Fast ing Glucose result from 100 to 125 mg/dLsuggests IMPAIRED HOMEOSTASIS per A.D.A. criteria. Performed By: #### L 501.5200, L100.0100, L501.2300, L500.2500 ####[facility] [address] [place], [address] Potassium [Moles/Vol] 4.8 mmol/L Normal 3.5-5.1 [facility] Comment on above: Performed By: #### L 501.5200, L100.0100, L501.2300, L500.2500 ####[facility] [address] [place], [address] Sodium [Moles/Vol] 137 mmol/L Normal 136-145 [facility] Comment on above: Performed By: #### L 501.5200, L100.0100, L501.2300, L500.2500 ####[facility] [address] [place], [address] Urea nitrogen [Mass/Vol] 22 mg/dL High 7-18 [facility] Comment on above: Performed By: #### L 501.5200, L100.0100, L501.2300, L500.2500 ####[facility] [address] [place], [address] CBC W/Diff, Automatedon 12-0 Anisocytosis Ql (Bld) 1+ Normal [facility] Comment on above: Performed By: #### L 501.5200, L100.0100, L501.2300, L500.2500 ####[facility] [address] [place], [address] Culture, Blood (WB)on 2023 CUB Blood cultures x2, from two different sites No growth in 5 days. Normal [facility] Comment on above: Performed By: #### L 500.4050, M200.1000, L300.4310, L501.4020, L503.6005, L100.0100, L300.3900 ####[facility] [address] [place], [address] Liver Profileon 04-05-2024 Albumin [Mass/Vol] 1.5 g/dL Low 3.2-5.0 [facility] Comment on above: Performed By: #### L 500.3400 ####[facility] [address] [place], [address] ALK P 145 U/L High 45-117 [facility] Comment on above: Performed By: #### L 500.3400 ####[facility] [address] [place], [address] ALT [Catalytic activity/Vol] 25 U/L Normal 13-56 [facility] Comment on above: Performed By: #### L 500.3400 ####[facility] [address] [place], [address] AST [Catalytic activity/Vol] 27 U/L Normal 15-37 [facility] Comment on above: Performed By: #### L 500.3400 ####[facility] [address] [place], [address] Bilirubin [Mass/Vol] 0.30 mg/dL Normal 0.20-1.00 [facility] Comment on above: Result Comment: For patients on eltrombopag therapy, use of Dimension [place] TBIL is not recommended. Performed By: #### L 500.3400 ####[facility] [address] [place], [address] Bilirubin.direct [Mass/Vol] 0.18 mg/dL Normal 0.00-0.30 [facility] Comment on above: Performed By: #### L 500.3400 ####[facility] [address] [place], [address] Globulin (S) [Mass/Vol] 2.9 g/dL Normal 2.2-4.2 [facility] Comment on above: Performed By: #### L 500.3400 ####[facility] [address] [place], [address] T PROT 4.4 g/dL Low 6.4-8.2 [facility] Comment on above: Performed By: #### L 500.3400 ####[facility] [address] [place], [address] Magnesiumon 04-05-2024 Magnesium [Mass/Vol] 2.0 mg/dL Normal 1.6-2.6 [facility] Comment on above: Performed By: #### L 501.5200, L100.0100, L501.2300, L500.2500 ####[facility] [address] [place], [address] Phosphoruson 04-05-2024 Phosphate [Mass/Vol] 4.2 mg/dL Normal 2.5-4.9 [facility] Comment on above: Performed By: #### L 501.5200, L100.0100, L501.2300, L500.2500 ####[facility] [address] [place], [address] Stool Occult Blood iFOBon STOB Normal [facility] Comment on above: Performed By: #### M 100.7900 ####[facility] [address] [place], [address] BRCon 04-04-2024 RC Normal [facility] Comment on above: Result Comment: [id number] AN RC READY Performed By: #### B RC ####[facility] [address] [place], [address] Basic Metabolic Profile (BMP )on 04-04-2024 BUN/CRE 68.2 RATIO High 10-20 [facility] Comment on above: Performed By: #### L 100.0100, L500.2500 ####[facility] [address] [place], [address] CA,Total 9.0 mg/dL Normal 8.5-10.1 [facility] Comment on above: Performed By: #### L 100.0100, L500.2500 ####[facility] [address] [place], [address] Chloride [Moles/Vol] 106 mmol/L Normal 98-107 [facility] Comment on above: Performed By: #### L 100.0100, L500.2500 ####[facility] [address] [place], [address] CO2 [Moles/Vol] 28.0 mmol/L Normal 21.0-32.0 [facility] Comment on above: Performed By: #### L 100.0100, L500.2500 ####[facility] [address] [place], [address] Creatinine [Mass/Vol] 0.31 mg/dL Low 0.55-1.02 [facility] Comment on above: Result Comment: The validity of the calculated GFR GFRAA in patients over70 years has not been determined. Clinical correlation isessential. Performed By: #### L 100.0100, L500.2500 ####[facility] [address] [place], [address] ECRCL 47.36 ml/min Normal [facility] Comment on above: Performed By: #### L 100.0100, L500.2500 ####[facility] [address] [place], [address] EST GFR - AA 272 mL/min Normal >60 [facility] Comment on above: Result Comment: Afri can [place] GFR Calc Performed By: #### L 100.0100, L500.2500 ####[facility] [address] [place], [address] GAP 3 Low 5-15 [facility] Comment on above: Performed By: #### L 100.0100, L500.2500 ####[facility] [address] [place], [address] GFR/1.73 sq M.predicted among non-blacks MDRD (S/P/Bld) [Vol rate/Area] 225 mL/min/{1.73_m2} Normal >60 [facility] Comment on above: Result Comment: Non- GFR Calc Performed By: #### L 100.0100, L500.2500 ####[facility] [address] [place], [address] Glucose [Mass/Vol] 111 mg/dL High 74-106 [facility] Comment on above: Result Comment: Fast ing Glucose result from 100 to 125 mg/dLsuggests IMPAIRED HOMEOSTASIS per A.D.A. criteria. Performed By: #### L 100.0100, L500.2500 ####[facility] [address] [place], [address] Potassium [Moles/Vol] 4.9 mmol/L Normal 3.5-5.1 [facility] Comment on above: Performed By: #### L 100.0100, L500.2500 ####[facility] [address] [place], [address] Sodium [Moles/Vol] 137 mmol/L Normal 136-145 [facility] Comment on above: Performed By: #### L 100.0100, L500.2500 ####[facility] [address] [place], [address] Urea nitrogen [Mass/Vol] 21 mg/dL High 7-18 [facility] Comment on above: Performed By: #### L 100.0100, L500.2500 ####[facility] [address] [place], [address] CBC W/Diff, Automatedon 12-0 2-2024 Absolute Lymph 0.68 X10 3/uL Low 0.83-4.51 [facility] Comment on above: Performed By: #### L 100.0100, L500.2500 ####[facility] [address] [place], [address] Absolute Neut 10.1 X10 3/uL High 2.0-7.7 [facility] Comment on above: Performed By: #### L 100.0100, L500.2500 ####[facility] [address] [place], [address] Basophils/100 WBC (Bld) 0.4 % Normal 0-1 [facility] Comment on above: Performed By: #### L 100.0100, L500.2500 ####[facility] [address] [place], [address] Eosinophils/100 WBC (Bld) 1.3 % Normal 0-5 [facility] Comment on above: Performed By: #### L 100.0100, L500.2500 ####[facility] [address] [place], [address] Erythrocyte distribution width (RBC) [Ratio] 13.8 % Normal 11.6-14.6 [facility] Comment on above: Performed By: #### L 100.0100, L500.2500 ####[facility] [address] [place], [address] Hematocrit (Bld) [Volume fraction] 24.0 % Low 37-47 [facility] Comment on above: Performed By: #### L 100.0100, L500.2500 ####[facility] [address] [place], [address] Hemoglobin (Bld) [Mass/Vol] 8.1 g/dL Low 12.0-15.0 [facility] Comment on above: Performed By: #### L 100.0100, L500.2500 ####[facility] [address] [place], [address] IG% 1.500 High 0.0-0.9 [facility] Comment on above: Result Comment: IG% - Immature Granulocytes (promyelocytes, myelocytes andmetamyelocytes) > 1% indicates that a LEFT SHIFT is Present. Performed By: #### L 100.0100, L500.2500 ####[facility] [address] [place], [address] Lymphocytes/100 WBC (Bld) 5.8 % Low 19-41 [facility] Comment on above: Performed By: #### L 100.0100, L500.2500 ####[facility] [address] [place], [address] MCH (RBC) [Entitic mass] 31.2 pg Normal 27.0-32.0 [facility] Comment on above: Performed By: #### L 100.0100, L500.2500 ####[facility] [address] [place], [address] MCHC (RBC) [Mass/Vol] 33.8 g/dL Normal 32-36 [facility] Comment on above: Performed By: #### L 100.0100, L500.2500 ####[facility] [address] [place], [address] MCV (RBC) [Entitic vol] 92.3 fL Normal 81-99 [facility] Comment on above: Performed By: #### L 100.0100, L500.2500 ####[facility] [address] [place], [address] Monocytes/100 WBC (Bld) 4.6 % Normal 0-10 [facility] Comment on above: Performed By: #### L 100.0100, L500.2500 ####[facility] [address] [place], [address] Neutrophils/100 WBC (Bld) 86.4 % High 47-70 [facility] Comment on above: Performed By: #### L 100.0100, L500.2500 ####[facility] [address] [place], [address] Nucleated RBC (Bld) [#/Vol] 0 10*3/uL Normal 0-5 [facility] Comment on above: Performed By: #### L 100.0100, L500.2500 ####[facility] [address] [place], [address] Platelet mean volume (Bld) [Entitic vol] 10.9 fL Normal 6.2-12.0 [facility] Comment on above: Performed By: #### L 100.0100, L500.2500 ####[facility] [address] [place], [address] Platelets (Bld) [#/Vol] 126 10*3/uL Low 150-450 [facility] Comment on above: Performed By: #### L 100.0100, L500.2500 ####[facility] [address] [place], [address] RBC (Bld) [#/Vol] 2.60 10*6/uL Low 4.2-5.4 [facility] Comment on above: Performed By: #### L 100.0100, L500.2500 ####[facility] [address] [place], [address] RDW SD 46.4 fl High 35.1-43.9 [facility] Comment on above: Performed By: #### L 100.0100, L500.2500 ####[facility] [address] [place], [address] WBC (Bld) [#/Vol] 11.6 10*3/uL High 4.4-11.0 [facility] Comment on above: Performed By: #### L 100.0100, L500.2500 ####[facility] [address] [place], [address] Iron+Iron Binding Capacityon 04-04-2024 Iron [Mass/Vol] 18 ug/dL Low 50-170 [facility] Comment on above: Performed By: #### L 503.0105, L503.6030 ####[facility] [address] [place], [address] IRON SATURATION 14.4 Low 15.0-55.0 [facility] Comment on above: Performed By: #### L 503.0105, L503.6030 ####[facility] [address] [place], [address] TIBC 125 ug/dL Low 250-450 [facility] Comment on above: Performed By: #### L 503.0105, L503.6030 ####[facility] [address] [place], [address] Type AND Screenon 04-04-2024 ABO and Rh group Nom (Bld) Blood group A Rh(D) negative Normal [facility] Comment on above: Order Comment: A Performed By: #### B TS ####[facility] [address] [place], [address] Ab SCREEN GEL Negative Normal [facility] Comment on above: Order Comment: A Performed By: #### B TS ####[facility] [address] [place], [address] Vitamin B12on 04-04-2024 Cobalamin (Vitamin B12) [Mass/Vol] 853 pg/mL Normal 211-911 [facility] Comment on above: Performed By: #### L 503.0105, L503.6030 ####[facility] [address] [place], [address] 12 Lead EKGon 04-03-2024 12 Lead EKG Normal [facility] Basic Metabolic Profile (BMP )on 04-03-2024 BUN/CRE 61.7 RATIO High 10-20 [facility] Comment on above: Performed By: #### L 100.0100, L500.2500 ####[facility] [address] [place], [address] CA,Total 8.1 mg/dL Low 8.5-10.1 [facility] Comment on above: Performed By: #### L 100.0100, L500.2500 ####[facility] [address] [place], [address] Chloride [Moles/Vol] 106 mmol/L Normal 98-107 [facility] Comment on above: Performed By: #### L 100.0100, L500.2500 ####[facility] [address] [place], [address] CO2 [Moles/Vol] 27.0 mmol/L Normal 21.0-32.0 [facility] Comment on above: Performed By: #### L 100.0100, L500.2500 ####[facility] [address] [place], [address] Creatinine [Mass/Vol] 0.31 mg/dL Low 0.55-1.02 [facility] Comment on above: Result Comment: The validity of the calculated GFR GFRAA in patients over70 years has not been determined. Clinical correlation isessential. Performed By: #### L 100.0100, L500.2500 ####[facility] [address] [place], [address] ECRCL 47.36 ml/min Normal [facility] Comment on above: Performed By: #### L 100.0100, L500.2500 ####[facility] [address] [place], [address] EST GFR - AA 272 mL/min Normal >60 [facility] Comment on above: Result Comment: Afri can [place] GFR Calc Performed By: #### L 100.0100, L500.2500 ####[facility] [address] [place], [address] GAP 4 Low 5-15 [facility] Comment on above: Performed By: #### L 100.0100, L500.2500 ####[facility] [address] [place], [address] GFR/1.73 sq M.predicted among non-blacks MDRD (S/P/Bld) [Vol rate/Area] 225 mL/min/{1.73_m2} Normal >60 [facility] Comment on above: Result Comment: Non- GFR Calc Performed By: #### L 100.0100, L500.2500 ####[facility] [address] [place], [address] Glucose [Mass/Vol] 82 mg/dL Normal 74-106 [facility] Comment on above: Performed By: #### L 100.0100, L500.2500 ####[facility] [address] [place], [address] Potassium [Moles/Vol] 5.3 mmol/L High 3.5-5.1 [facility] Comment on above: Performed By: #### L 100.0100, L500.2500 ####[facility] [address] [place], [address] Sodium [Moles/Vol] 138 mmol/L Normal 136-145 [facility] Comment on above: Performed By: #### L 100.0100, L500.2500 ####[facility] [address] [place], [address] Urea nitrogen [Mass/Vol] 19 mg/dL High 7-18 [facility] Comment on above: Performed By: #### L 100.0100, L500.2500 ####[facility] [address] [place], [address] CBC W/Diff, Automatedon 12-0 SMEAR COMMENT SCANNED Normal [facility] Comment on above: Performed By: #### L 100.0100, L500.2500 ####[facility] [address] [place], [address] Abdomen Single View (Portabl e)on 04-02-2024 Abdomen Single View (Portable) Normal [facility] Basic Metabolic Profile (BMP )on 04-02-2024 BUN/CRE 50.4 RATIO High 10-20 [facility] Comment on above: Performed By: #### L 100.0100, L500.2500 ####[facility] [address] [place], [address] CA,Total 7.9 mg/dL Low 8.5-10.1 [facility] Comment on above: Performed By: #### L 100.0100, L500.2500 ####[facility] [address] [place], [address] Chloride [Moles/Vol] 106 mmol/L Normal 98-107 [facility] Comment on above: Performed By: #### L 100.0100, L500.2500 ####[facility] [address] [place], [address] CO2 [Moles/Vol] 25.0 mmol/L Normal 21.0-32.0 [facility] Comment on above: Performed By: #### L 100.0100, L500.2500 ####[facility] [address] [place], [address] Creatinine [Mass/Vol] 0.42 mg/dL Low 0.55-1.02 [facility] Comment on above: Result Comment: The validity of the calculated GFR GFRAA in patients over70 years has not been determined. Clinical correlation isessential. Performed By: #### L 100.0100, L500.2500 ####[facility] [address] [place], [address] ECRCL 47.36 ml/min Normal [facility] Comment on above: Performed By: #### L 100.0100, L500.2500 ####[facility] [address] [place], [address] EST GFR - AA 192 mL/min Normal >60 [facility] Comment on above: Result Comment: Afri can [place] GFR Calc Performed By: #### L 100.0100, L500.2500 ####[facility] [address] [place], [address] GAP 5 Normal 5-15 [facility] Comment on above: Performed By: #### L 100.0100, L500.2500 ####[facility] [address] [place], [address] GFR/1.73 sq M.predicted among non-blacks MDRD (S/P/Bld) [Vol rate/Area] 159 mL/min/{1.73_m2} Normal >60 [facility] Comment on above: Result Comment: Non- GFR Calc Performed By: #### L 100.0100, L500.2500 ####[facility] [address] [place], [address] Glucose [Mass/Vol] 97 mg/dL Normal 74-106 [facility] Comment on above: Performed By: #### L 100.0100, L500.2500 ####[facility] [address] [place], [address] Potassium [Moles/Vol] 2.7 mmol/L Invalid Interpretation Code 3.5-5.1 [facility] Comment on above: Result Comment: Crit ical Result(s) Called at: 07:29:48 04/02/2024 by:Denisse Morrison. Results read back by same. Performed By: #### L 100.0100, L500.2500 ####[facility] [address] [place], [address] Sodium [Moles/Vol] 136 mmol/L Normal 136-145 [facility] Comment on above: Performed By: #### L 100.0100, L500.2500 ####[facility] [address] [place], [address] Urea nitrogen [Mass/Vol] 21 mg/dL High 7-18 [facility] Comment on above: Performed By: #### L 100.0100, L500.2500 ####[facility] [address] [place], [address] Bedside Glucoseon 04-02-2024 FINGERSTICK GLU 101 mg/dL Normal 74-106 [facility] Comment on above: Result Comment: LIAM HERNANDEZ OF PATIENT CARE PER NURSING PROTOCOL Performed By: #### L 501.080 ####[facility] [address] [place], [address] CBC W/Diff, Automatedon 11-3 SMEAR COMMENT SCANNED Normal [facility] Comment on above: Performed By: #### L 100.0100, L500.2500 ####[facility] [address] [place], [address] Urine Cultureon 04-02-2024 URC Normal [facility] Comment on above: Performed By: #### L 400.0001, M100.678, M100.2200 ####[facility] [address] [place], [address] Basic Metabolic Profile (BMP )on 04-01-2024 BUN/CRE 47.4 RATIO High 10-20 [facility] Comment on above: Performed By: #### L 100.0100, L501.5200, L501.2300, L501.9520, L300.3900, L500.3400, L500.4050, L500.2500 ####[facility] [address] [place], [address] CA,Total 7.6 mg/dL Low 8.5-10.1 [facility] Comment on above: Performed By: #### L 100.0100, L501.5200, L501.2300, L501.9520, L300.3900, L500.3400, L500.4050, L500.2500 ####[facility] [address] [place], [address] Chloride [Moles/Vol] 107 mmol/L Normal 98-107 [facility] Comment on above: Performed By: #### L 100.0100, L501.5200, L501.2300, L501.9520, L300.3900, L500.3400, L500.4050, L500.2500 ####[facility] [address] [place], [address] CO2 [Moles/Vol] 21.0 mmol/L Normal 21.0-32.0 [facility] Comment on above: Performed By: #### L 100.0100, L501.5200, L501.2300, L501.9520, L300.3900, L500.3400, L500.4050, L500.2500 ####[facility] [address] [place], [address] Creatinine [Mass/Vol] 0.68 mg/dL Normal 0.55-1.02 [facility] Comment on above: Result Comment: The validity of the calculated GFR GFRAA in patients over70 years has not been determined. Clinical correlation isessential. Performed By: #### L 100.0100, L501.5200, L501.2300, L501.9520, L300.3900, L500.3400, L500.4050, L500.2500 ####[facility] [address] [place], [address] ECRCL 47.36 ml/min Normal [facility] Comment on above: Performed By: #### L 100.0100, L501.5200, L501.2300, L501.9520, L300.3900, L500.3400, L500.4050, L500.2500 ####[facility] [address] [place], [address] EST GFR - AA 110 mL/min Normal >60 [facility] Comment on above: Result Comment: Afri can [place] GFR Calc Performed By: #### L 100.0100, L501.5200, L501.2300, L501.9520, L300.3900, L500.3400, L500.4050, L500.2500 ####[facility] [address] [place], [address] GAP 9 Normal 5-15 [facility] Comment on above: Performed By: #### L 100.0100, L501.5200, L501.2300, L501.9520, L300.3900, L500.3400, L500.4050, L500.2500 ####[facility] [address] [place], [place], [id number] GFR/1.73 sq M.predicted among non-blacks MDRD (S/P/Bld) [Vol rate/Area] 91 mL/min/{1.73_m2} Normal >60 [facility] Comment on above: Result Comment: Non- GFR Calc Performed By: #### L 100.0100, L501.5200, L501.2300, L501.9520, L300.3900, L500.3400, L500.4050, L500.2500 ####[facility] [address] [place], [address] Glucose [Mass/Vol] 135 mg/dL High 74-106 [facility] Comment on above: Result Comment: Fast ing Glucose result greater than or equal to 126 mg/dLsuggests DIABETES MELLITUS per A.D.A. criteria. Performed By: #### L 100.0100, L501.5200, L501.2300, L501.9520, L300.3900, L500.3400, L500.4050, L500.2500 ####[facility] [address] [place], [place], [phone] Potassium [Moles/Vol] 2.8 mmol/L Low 3.5-5.1 [facility] Comment on above: Performed By: #### L 100.0100, L501.5200, L501.2300, L501.9520, L300.3900, L500.3400, L500.4050, L500.2500 ####[facility] [address] [place], [place], [phone] Sodium [Moles/Vol] 137 mmol/L Normal 136-145 [facility] Comment on above: Performed By: #### L 100.0100, L501.5200, L501.2300, L501.9520, L300.3900, L500.3400, L500.4050, L500.2500 ####[facility] [address] [place], [place], [phone] Urea nitrogen [Mass/Vol] 32 mg/dL High 7-18 [facility] Comment on above: Performed By: #### L 100.0100, L501.5200, L501.2300, L501.9520, L300.3900, L500.3400, L500.4050, L500.2500 ####[facility] [address] [place], [place], [phone] CBC W/Diff, Automatedon 11-2 SMEAR COMMENT COMMENT Normal [facility] Comment on above: Result Comment: LYMP HOPENIA. Performed By: #### L 100.0100, L501.5200, L501.2300, L501.9520, L300.3900, L500.3400, L500.4050, L500.2500 ####[facility] [address] [place], [address] CTA Chest W/WO Contraston CTA Chest W/WO Contrast Normal [facility] Comprehensive Metabolic Prof ilon 04-01-2024 Albumin/Globulin [Mass ratio] 0.6 {ratio} Low 0.9-2.4 [facility] Comment on above: Performed By: #### L 100.0100, L501.5200, L501.2300, L501.9520, L300.3900, L500.3400, L500.4050, L500.2500 ####[facility] [address] [place], [place], [phone] Consultation - Cardiologyon 04-01-2024 Consultation - Cardiology Normal [facility] D-Dimer Quantitative (DVT/PE )on 04-01-2024 D-DIMER QUANT 1.81 FEU/ug/m Invalid Interpretation Code 0.27-0.49 [facility] Comment on above: Order Comment: CRITI NATTY VALUE CALLED TO SUMA MC04/01/24 [place].RESULTS READ BACK BY SAME. Result Comment: D-Di jan ELEVATED (>0.49): Additional studies and clinicalassessments are indicated to conclude diagnosis of:Deep Vein Thrombosis (DVT) or Pulmonary Embolism (PE) Performed By: #### L 300.8000 ####[facility] [address] [place], [place], [phone] ENTERIC PATHOGEN PANEL STOOL on 04-01-2024 EP PANEL Normal [facility] Comment on above: Performed By: #### M 100.637 ####[facility] [address] [place], [address] Echo Completeon 04-01-2024 Echo Complete Normal [facility] Liver Profileon 04-01-2024 Albumin [Mass/Vol] 2.1 g/dL Low 3.2-5.0 [facility] Comment on above: Performed By: #### L 100.0100, L501.5200, L501.2300, L501.9520, L300.3900, L500.3400, L500.4050, L500.2500 ####[facility] [address] [place], [address] ALK P 96 U/L Normal 45-117 [facility] Comment on above: Performed By: #### L 100.0100, L501.5200, L501.2300, L501.9520, L300.3900, L500.3400, L500.4050, L500.2500 ####[facility] [address] [place], [address] ALT [Catalytic activity/Vol] 10 U/L Low 13-56 [facility] Comment on above: Performed By: #### L 100.0100, L501.5200, L501.2300, L501.9520, L300.3900, L500.3400, L500.4050, L500.2500 ####[facility] [address] [place], [address] AST [Catalytic activity/Vol] 16 U/L Normal 15-37 [facility] Comment on above: Performed By: #### L 100.0100, L501.5200, L501.2300, L501.9520, L300.3900, L500.3400, L500.4050, L500.2500 ####[facility] [address] [place], [address] Bilirubin [Mass/Vol] 0.60 mg/dL Normal 0.20-1.00 [facility] Comment on above: Result Comment: For patients on eltrombopag therapy, use of Dimension [place] TBIL is not recommended. Performed By: #### L 100.0100, L501.5200, L501.2300, L501.9520, L300.3900, L500.3400, L500.4050, L500.2500 ####[facility] [address] [place], [address] Bilirubin.direct [Mass/Vol] 0.24 mg/dL Normal 0.00-0.30 [facility] Comment on above: Performed By: #### L 100.0100, L501.5200, L501.2300, L501.9520, L300.3900, L500.3400, L500.4050, L500.2500 ####[facility] [address] [place], [address] Globulin (S) [Mass/Vol] 3.3 g/dL Normal 2.2-4.2 [facility] Comment on above: Performed By: #### L 100.0100, L501.5200, L501.2300, L501.9520, L300.3900, L500.3400, L500.4050, L500.2500 ####[facility] [address] [place], [place], [phone] T PROT 5.4 g/dL Low 6.4-8.2 [facility] Comment on above: Performed By: #### L 100.0100, L501.5200, L501.2300, L501.9520, L300.3900, L500.3400, L500.4050, L500.2500 ####[facility] [address] [place], [address] Magnesiumon 04-01-2024 Magnesium [Mass/Vol] 2.1 mg/dL Normal 1.6-2.6 [facility] Comment on above: Performed By: #### L 100.0100, L501.5200, L501.2300, L501.9520, L300.3900, L500.3400, L500.4050, L500.2500 ####[facility] [address] [place], [address] Phosphoruson 04-01-2024 Phosphate [Mass/Vol] 2.9 mg/dL Normal 2.5-4.9 [facility] Comment on above: Performed By: #### L 100.0100, L501.5200, L501.2300, L501.9520, L300.3900, L500.3400, L500.4050, L500.2500 ####[facility] [address] [place], [address] Prothrombin Time w/INRon INR Coag (PPP) [Relative time] 1.3 {INR} Normal [facility] Comment on above: Performed By: #### L 100.0100, L501.5200, L501.2300, L501.9520, L300.3900, L500.3400, L500.4050, L500.2500 ####[facility] [address] [place], [address] PT Coag (PPP) [Time] 16.5 s High 11.7-14.9 [facility] Comment on above: Performed By: #### L 100.0100, L501.5200, L501.2300, L501.9520, L300.3900, L500.3400, L500.4050, L500.2500 ####[facility] [address] [place], [address] Thyroid Stim Hormone (TSH)on 04-01-2024 TSH 0.588 uIU/mL Normal 0.358-3.740 [facility] Comment on above: Performed By: #### L 100.0100, L501.5200, L501.2300, L501.9520, L300.3900, L500.3400, L500.4050, L500.2500 ####[facility] [address] [place], [address] Abdomen/Pelvis W IV Cont ONL Yon 03-31-2024 Abdomen/Pelvis W IV Cont ONLY Normal [facility] BNP,B-Type NATRIURETIC PEPTI Leah 03-31-2024 Natriuretic peptide B (Bld) [Mass/Vol] 1148.9 pg/mL High 0-100 [facility] Comment on above: Performed By: #### L 503.6618 ####[facility] [address] [place], [address] CBC W/Diff, Automatedon 11-2 SMEAR COMMENT Normal [facility] Comment on above: Result Comment: BAND S NOTED Performed By: #### L 500.4050, M200.1000, L300.4310, L501.4020, L503.6005, L100.0100, L300.3900 ####[facility] [address] [place], [address] Chest 1 View (Portable)on Chest 1 View (Portable) Normal [facility] Comprehensive Metabolic Prof ilon 03-31-2024 Albumin [Mass/Vol] 2.6 g/dL Low 3.2-5.0 [facility] Comment on above: Order Comment: 'TROP ' Serial specimen #1, #2 or #3: 1 Performed By: #### L 500.4050, M200.1000, L300.4310, L501.4020, L503.6005, L100.0100, L300.3900 ####[facility] [address] [place], [address] Albumin/Globulin [Mass ratio] 0.8 {ratio} Low 0.9-2.4 [facility] Comment on above: Order Comment: 'TROP ' Serial specimen #1, #2 or #3: 1 Performed By: #### L 500.4050, M200.1000, L300.4310, L501.4020, L503.6005, L100.0100, L300.3900 ####[facility] [address] [place], [address] ALK P 102 U/L Normal 45-117 [facility] Comment on above: Order Comment: 'TROP ' Serial specimen #1, #2 or #3: 1 Performed By: #### L 500.4050, M200.1000, L300.4310, L501.4020, L503.6005, L100.0100, L300.3900 ####[facility] [address] [place], [address] ALT [Catalytic activity/Vol] 11 U/L Low 13-56 [facility] Comment on above: Order Comment: 'TROP ' Serial specimen #1, #2 or #3: 1 Performed By: #### L 500.4050, M200.1000, L300.4310, L501.4020, L503.6005, L100.0100, L300.3900 ####[facility] [address] [place], [address] AST [Catalytic activity/Vol] 18 U/L Normal 15-37 [facility] Comment on above: Order Comment: 'TROP ' Serial specimen #1, #2 or #3: 1 Performed By: #### L 500.4050, M200.1000, L300.4310, L501.4020, L503.6005, L100.0100, L300.3900 ####[facility] [address] [place], [address] Bilirubin [Mass/Vol] 0.70 mg/dL Normal 0.20-1.00 [facility] Comment on above: Order Comment: 'TROP ' Serial specimen #1, #2 or #3: 1 Result Comment: For patients on eltrombopag therapy, use of Dimension [place] TBIL is not recommended. Performed By: #### L 500.4050, M200.1000, L300.4310, L501.4020, L503.6005, L100.0100, L300.3900 ####[facility] [address] [place], [address] BUN/CRE 42.5 RATIO High 10-20 [facility] Comment on above: Order Comment: 'TROP ' Serial specimen #1, #2 or #3: 1 Performed By: #### L 500.4050, M200.1000, L300.4310, L501.4020, L503.6005, L100.0100, L300.3900 ####[facility] [address] [place], [address] CA,Total 8.2 mg/dL Low 8.5-10.1 [facility] Comment on above: Order Comment: 'TROP ' Serial specimen #1, #2 or #3: 1 Performed By: #### L 500.4050, M200.1000, L300.4310, L501.4020, L503.6005, L100.0100, L300.3900 ####[facility] [address] [place], [address] Chloride [Moles/Vol] 97 mmol/L Low 98-107 [facility] Comment on above: Order Comment: 'TROP ' Serial specimen #1, #2 or #3: 1 Performed By: #### L 500.4050, M200.1000, L300.4310, L501.4020, L503.6005, L100.0100, L300.3900 ####[facility] [address] [place], [address] CO2 [Moles/Vol] 24.0 mmol/L Normal 21.0-32.0 [facility] Comment on above: Order Comment: 'TROP ' Serial specimen #1, #2 or #3: 1 Performed By: #### L 500.4050, M200.1000, L300.4310, L501.4020, L503.6005, L100.0100, L300.3900 ####[facility] [address] [place], [address] Creatinine [Mass/Vol] 0.80 mg/dL Normal 0.55-1.02 [facility] Comment on above: Order Comment: 'TROP ' Serial specimen #1, #2 or #3: 1 Result Comment: The validity of the calculated GFR GFRAA in patients over70 years has not been determined. Clinical correlation isessential. Performed By: #### L 500.4050, M200.1000, L300.4310, L501.4020, L503.6005, L100.0100, L300.3900 ####[facility] [address] [place], [address] ECRCL 43.24 ml/min Normal [facility] Comment on above: Order Comment: 'TROP ' Serial specimen #1, #2 or #3: 1 Performed By: #### L 500.4050, M200.1000, L300.4310, L501.4020, L503.6005, L100.0100, L300.3900 ####[facility] [address] [place], [address] EST GFR - AA 90 mL/min Normal >60 [facility] Comment on above: Order Comment: 'TROP ' Serial specimen #1, #2 or #3: 1 Result Comment: Afri can [place] GFR Calc Performed By: #### L 500.4050, M200.1000, L300.4310, L501.4020, L503.6005, L100.0100, L300.3900 ####[facility] [address] [place], [address] GAP 10 Normal 5-15 [facility] Comment on above: Order Comment: 'TROP ' Serial specimen #1, #2 or #3: 1 Performed By: #### L 500.4050, M200.1000, L300.4310, L501.4020, L503.6005, L100.0100, L300.3900 ####[facility] [address] [place], [address] GFR/1.73 sq M.predicted among non-blacks MDRD (S/P/Bld) [Vol rate/Area] 75 mL/min/{1.73_m2} Normal >60 [facility] Comment on above: Order Comment: 'TROP ' Serial specimen #1, #2 or #3: 1 Result Comment: Non- GFR Calc Performed By: #### L 500.4050, M200.1000, L300.4310, L501.4020, L503.6005, L100.0100, L300.3900 ####[facility] [address] [place], [address] Globulin (S) [Mass/Vol] 3.3 g/dL Normal 2.2-4.2 [facility] Comment on above: Order Comment: 'TROP ' Serial specimen #1, #2 or #3: 1 Performed By: #### L 500.4050, M200.1000, L300.4310, L501.4020, L503.6005, L100.0100, L300.3900 ####[facility] [address] [place], [address] Glucose [Mass/Vol] 97 mg/dL Normal 74-106 [facility] Comment on above: Order Comment: 'TROP ' Serial specimen #1, #2 or #3: 1 Performed By: #### L 500.4050, M200.1000, L300.4310, L501.4020, L503.6005, L100.0100, L300.3900 ####[facility] [address] [place], [address] Potassium [Moles/Vol] 3.0 mmol/L Low 3.5-5.1 [facility] Comment on above: Order Comment: 'TROP ' Serial specimen #1, #2 or #3: 1 Performed By: #### L 500.4050, M200.1000, L300.4310, L501.4020, L503.6005, L100.0100, L300.3900 ####[facility] [address] [place], [address] Sodium [Moles/Vol] 130 mmol/L Low 136-145 [facility] Comment on above: Order Comment: 'TROP ' Serial specimen #1, #2 or #3: 1 Performed By: #### L 500.4050, M200.1000, L300.4310, L501.4020, L503.6005, L100.0100, L300.3900 ####[facility] [address] [place], [address] T PROT 5.9 g/dL Low 6.4-8.2 [facility] Comment on above: Order Comment: 'TROP ' Serial specimen #1, #2 or #3: 1 Performed By: #### L 500.4050, M200.1000, L300.4310, L501.4020, L503.6005, L100.0100, L300.3900 ####[facility] [address] [place], [address] Urea nitrogen [Mass/Vol] 34 mg/dL High 7-18 [facility] Comment on above: Order Comment: 'TROP ' Serial specimen #1, #2 or #3: 1 Performed By: #### L 500.4050, M200.1000, L300.4310, L501.4020, L503.6005, L100.0100, L300.3900 ####[facility] [address] [place], [address] Emergency Department Summary on 03-31-2024 Emergency Department Summary Normal [facility] H AND P Exam - Hospitaliston 03-31-2024 H&P Exam - Hospitalist Normal [facility] L501.4020on 03-31-2024 TROPONIN-I HS 25 pg/mL Normal 3.0-54.0 [facility] Comment on above: Order Comment: 'TROP ' Serial specimen #1, #2 or #3: 2 Result Comment: Plea se Note: New Test Units and Gender Specific Reference Ranges. For more information see Policy Stat Procedure [place] High Sensitivity Troponin (TNIH) and attachments. Performed By: #### L 501.4020 ####[facility] [address] [place], [address] TROPONIN-I HS 27 pg/mL Normal 3.0-54.0 [facility] Comment on above: Order Comment: 'TROP ' Serial specimen #1, #2 or #3: 1 Result Comment: Plea se Note: New Test Units and Gender Specific Reference Ranges. For more information see Policy Stat Procedure [place] High Sensitivity Troponin (TNIH) and attachments. Performed By: #### L 500.4050, M200.1000, L300.4310, L501.4020, L503.6005, L100.0100, L300.3900 ####[facility] [address] [place], [phone] Lactic Acidon 03-31-2024 Lactate [Moles/Vol] 1.0 mmol/L Normal 0.4-1.9 [facility] Comment on above: Order Comment: Y Performed By: #### L 500.4050, M200.1000, L300.4310, L501.4020, L503.6005, L100.0100, L300.3900 ####[facility] [address] [place], [address] M100.678on 03-31-2024 M100.678 Pending SARS-CoV-2 (COVID 19) Negative INFLUENZA A Negative INFLUENZA B Negative RSV PCR Negative Normal [facility] Comment on above: Performed By: #### L 400.0001, M100.678, M100.2200 ####[facility] [address] [place], [address] Partial Thromboplast Timeon 03-31-2024 aPTT Coag (Bld) [Time] 41.6 s High 24.1-36.2 [facility] Comment on above: Performed By: #### L 500.4050, M200.1000, L300.4310, L501.4020, L503.6005, L100.0100, L300.3900 ####[facility] [address] [place], [address] Prothrombin Time w/INRon INR Coag (PPP) [Relative time] 1.3 {INR} Normal [facility] Comment on above: Performed By: #### L 500.4050, M200.1000, L300.4310, L501.4020, L503.6005, L100.0100, L300.3900 ####[facility] [address] [place], [address] PT Coag (PPP) [Time] 16.4 s High 11.7-14.9 [facility] Comment on above: Performed By: #### L 500.4050, M200.1000, L300.4310, L501.4020, L503.6005, L100.0100, L300.3900 ####[facility] [address] [place], [address] Urinalysis, Completeon 03-31 BACTERIA 2+ /hpf Normal None Seen [facility] Comment on above: Order Comment: COLLE CTOR TO SPECIFY Performed By: #### L 400.0001, M1.678, M1.2200 ####[facility] [address] [place], [address] WBC 0-5 SEEN Normal 0-5 [facility] Comment on above: Order Comment: COLLE CTOR TO SPECIFY Performed By: #### L 400.0001, M100.678, M1.2200 ####[facility] [address] [place], [address] EPI,SQUAMOUS 0 SEEN Normal 5-10 [facility] Comment on above: Order Comment: COLLE CTOR TO SPECIFY Performed By: #### L 400.0001, M100.678, M100.2200 ####[facility] [address] [place], [address] Mucus Ql (Urine sed) 0 SEEN Normal [facility] Comment on above: Order Comment: COLLE CTOR TO SPECIFY Performed By: #### L 400.0001, M100.678, M100.2200 ####[facility] [address] [place], [address] RBC 0 SEEN Normal 0-5 [facility] Comment on above: Order Comment: COLLE CTOR TO SPECIFY Performed By: #### L 400.0001, M100.678, M100.2200 ####[facility] [address] [place], [address] Hips B/L min 2 views w/ Pelv spencer 03-30-2024 Hips B/L min 2 views w/ Pelvis Normal [facility] Vitamin B12 measurementOrder ed By: Fransisca Orlando on 11-16-2023 Cobalamin (Vitamin B12) [Mass/Vol] 311 pg/mL 211-911 [facility] Absolute lymphocyte countOrd ered By: Fransisca Orlando on 05-11-2023 Lymphocytes Auto (Unsp spec) [#/Vol] 0.64 10*3/uL 0.83-4.51 [facility] Basophil percentageOrdered B y: Fransisca Orlando on 05-11-2023 Basophils/100 WBC (Bld) 0.6 % 0-1 [facility] Eosinophils/100 WBC (Bld) 10.1 % 0-5 [facility] Neutrophils (Bld) [#/Vol] 2.1 10*3/uL 2.0-7.7 [facility] Neutrophils/100 WBC (Bld) 59.2 % 47-70 [facility] WBC (Bld) [#/Vol] 3.5 10*3/uL 4.4-11.0 [facility] Blood erythrocytes count (nu mber/volume)Ordered By: Fransisca Orlando on 05-11-2023 RBC (Bld) [#/Vol] 3.38 10*6/uL 4.2-5.4 [facility] Blood hemoglobin measurement (mass/volume)Ordered By: Fransisca Orlando on 05-11-2023 Hemoglobin (Bld) [Mass/Vol] 11.5 g/dL 12.0-15.0 [facility] Blood lymphocytes/100 leukoc ytesOrdered By: Fransisca Orlando on 05-11-2023 Lymphocytes/100 WBC (Bld) 18.5 % 19-41 [facility] Blood monocytes/100 leukocyt esOrdered By: Fransisca Orlando on 05-11-2023 Monocytes/100 WBC (Bld) 11.3 % 0-10 [facility] Blood platelet mean volumeOr dered By: Fransisca Orlando on 05-11-2023 Platelet mean volume (Bld) [Entitic vol] 9.9 fL 6.2-12.0 [facility] Determination of erythrocyte mean corpuscular volume (MCV)Ordered By: Fransisca Orlando on 05-11-2023 MCV (RBC) [Entitic vol] 100.3 fL 81-99 [facility] Hematocrit Auto (Bld) [Volum e fraction]Ordered By: [facility] on 05-11-2023 Hematocrit (Bld) [Volume fraction] 33.9 % 37-47 [facility] Hemoglobin in reticulocytes (mass per reticulocyte)Ordered By: [facility] on 05-11-2023 Hemoglobin (Reticulocytes) [Entitic mass] 34.8 pg 30-35 [facility] Iron measurement (mass/mass) Ordered By: Fransisca Orlando on 05-11-2023 Iron (Unsp spec) [Mass/Mass] 137 ug/dL 50-170 [facility] Laboratory - Hematology and Cell countsOrdered By: [facility] on 05-11-2023 Erythrocyte distribution width (RBC) [Entitic vol] 47.0 fL 35.1-43.9 [facility] Erythrocyte distribution width (RBC) [Ratio] 12.7 % 11.6-14.6 [facility] Immature granulocytes/100 WBC (Bld) 0.300 % 0.0-0.9 [facility] Comment on above: IG% - Immature Granu locytes (promyelocytes, myelocytes and metamyelocytes) > 1% indicates that a LEFT SHIFT is Present. MCH (RBC) [Entitic mass] 34.0 pg 27.0-32.0 [facility] Nucleated RBC/100 WBC (Bld) [Ratio] 0 % 0-5 [facility] MCHC Auto (RBC) [Mass/Vol]Or dered By: Fransisca Orlando on 05-11-2023 MCHC (RBC) [Mass/Vol] 33.9 g/dL 32-36 [facility] No Panel InformationOrdered By: Fransisca Orlando on 05-11-2023 Immature Reticulocyte Fraction 10.40 % 3.00-15.90 [facility] Reticulocyte Count 1.96 % 0.5-1.5 [facility] Total Iron Binding Capacity 213 ug/dL 250-450 [facility] Platelets bldOrdered By: Kenan Orlando on 05-11-2023 Platelets (Bld) [#/Vol] 167 10*3/uL 150-450 [facility] Serum or plasma ferritin pineda surement (mass/volume)Ordered By: Fransisca Orlando on 05-11-2023 Ferritin [Mass/Vol] 82 ng/mL 8-252 [facility] Serum or plasma iron saturat ion measurement (mass fraction)Ordered By: Fransisca Orlando on 05-11-2023 Iron saturation [Mass fraction] 64.3 % 15.0-55.0 [facility] Laboratory - Chemistry and C hemistry - challengeOrdered By: Fransisca Orlando on 11-03-2022 Cobalamin (Vitamin B12) [Mass/Vol] 370 pg/mL [facility] - Chemistry and C hemistry - challengeOrdered By: Ingrid Grimaldo on 08-11-2022 Cobalamin (Vitamin B12) [Mass/Vol] 775 pg/mL [facility] Serum or plasma folate measu rement (mass/volume)Ordered By: Ingrid Grimaldo on 08-11-2022 Folate [Mass/Vol] 12.70 ng/mL 3.1-55.4 [facility] Culture, urineOrdered By: Dr Sadia Trevizo on 08-08-2022 Bacteria identified Cx Nom (U) Escherichia coli [facility] Basophil percentageOrdered B y: Dr. Arce on 08-06-2022 Chloride [Moles/Vol] 100 mmol/L 98-107 [facility] Glucose [Mass/Vol] 100 mg/dL 74-106 [facility] Comment on above: Fasting Glucose resu lt from 100 to 125 mg/dL suggests IMPAIRED HOMEOSTASIS per A.D.A. criteria. Potassium [Moles/Vol] 4.1 mmol/L 3.5-5.1 [facility] Sodium [Moles/Vol] 136 mmol/L 136-145 [facility] WBC (Bld) [#/Vol] 7.0 10*3/uL 4.4-11.0 [facility] Basophil percentageOrdered B y: Dr. Trevizo on 08-06-2022 Basophil percentage 25-50 SEEN /hpf 0-5 [facility] Bilirubin Test strip Ql (U)O rdered By: Dr. Trevizo on 08-06-2022 Bilirubin Ql (U) Negative Negative [facility] Blood erythrocytes count (nu mber/volume)Ordered By: Dr. Arce on 08-06-2022 RBC (Bld) [#/Vol] 3.48 10*6/uL 4.2-5.4 [facility] Blood hemoglobin measurement (mass/volume)Ordered By: Dr. Arce on 08-06-2022 Hemoglobin (Bld) [Mass/Vol] 11.3 g/dL 12.0-15.0 [facility] Blood platelet mean volumeOr dered By: Dr. Arce on 08-06-2022 Platelet mean volume (Bld) [Entitic vol] 9.8 fL 6.2-12.0 [facility] Determination of erythrocyte mean corpuscular volume (MCV)Ordered By: Dr. Arce on 08-06-2022 MCV (RBC) [Entitic vol] 100.3 fL 81-99 [facility] Hematocrit Auto (Bld) [Volum e fraction]Ordered By: Dr. Arce on 08-06-2022 Hematocrit (Bld) [Volume fraction] 34.9 % 37-47 [facility] Ketones Test strip Ql (U)Ord ered By: Dr. Trevizo on 08-06-2022 Ketones Ql (U) Negative Negative [facility] Laboratory - Chemistry and C hemistry - challengeOrdered By: Dr. Arce on 08-06-2022 CO2 [Moles/Vol] 32.0 mmol/L 21.0-32.0 [facility] Urea nitrogen/Creatinine [Mass ratio] 28.1 mg/mg 10-20 [facility] Laboratory - Hematology and Cell countsOrdered By: Dr. Arce on 08-06-2022 Erythrocyte distribution width (RBC) [Entitic vol] 49.0 fL 35.1-43.9 [facility] Erythrocyte distribution width (RBC) [Ratio] 13.3 % 11.6-14.6 [facility] MCH (RBC) [Entitic mass] 32.5 pg 27.0-32.0 [facility] MCHC Auto (RBC) [Mass/Vol]Or dered By: Dr. Arce on 08-06-2022 MCHC (RBC) [Mass/Vol] 32.4 g/dL 32-36 [facility] Mucus LM Ql (Urine sed)Order ed By: Dr. Trevizo on 08-06-2022 Mucus Ql (Urine sed) 0 SEEN /hpf [facility] Nitrite Test strip Ql (U)Ord ered By: Dr. Trevizo on 08-06-2022 Nitrite Ql (U) Positive Negative [facility] No Panel InformationOrdered By: Dr. Arce on 08-06-2022 Estimated GFR (MDRD) Amer 208 mL/min >60 [facility] Comment on above: GFR Calc Estimated GFR (MDRD) Non-Af Amer 172 mL/min >60 [facility] Comment on above: Non- GFR Calc Thyroid Stimulating Hormone (TSH) 1.03 uIU/mL 0.358-3.74 [facility] Platelets bldOrdered By: Dr. Arce on 08-06-2022 Platelets (Bld) [#/Vol] 269 10*3/uL 150-450 [facility] Protein Test strip Ql (U)Ord ered By: Dr. Trevizo on 08-06-2022 Protein Ql (U) 30 mg/dl Negative [facility] Serum or plasma calcium cedric urement (mass/volume)Ordered By: Dr. Arce on 08-06-2022 Calcium [Mass/Vol] 8.9 mg/dL 8.5-10.1 [facility] Serum or plasma creatinine m easurement (mass/volume)Ordered By: Dr. Arce on 08-06-2022 Creatinine [Mass/Vol] 0.39 mg/dL 0.55-1.02 [facility] Comment on above: The validity of the calculated GFR & GFRAA in patients over 70 years has not been determined. Clinical correlation is essential. Serum or plasma urea nitroge n measurement (mass/volume)Ordered By: Dr. Arce on 08-06-2022 Urea nitrogen [Mass/Vol] 11 mg/dL 7-18 [facility] Squamous epithelial cells de tection in urine sediment by light microscopyOrdered By: Dr. Trevizo on 08-06-2022 Epithelial cells.squamous LM Ql (Urine sed) 0 SEEN /hpf 5-10 [facility] Thin prep Papanicolaou smear with manual screeningOrdered By: Dr. Arce on 08-06-2022 Thin prep Papanicolaou smear with manual screening 4 5-15 [facility] Urine blood detectionOrdered By: Dr. Trevizo on 08-06-2022 RBC Ql (U) 50 /ul Negative [facility] RBC Ql (U) 10-25 SEEN /hpf 0-5 [facility] Urine clarityOrdered By: Dr. Trevizo on 08-06-2022 Clarity (U) Cloudy Clear [facility] Urine color determinationOrd ered By: Dr. Trevizo on 08-06-2022 Color (U) Yellow Yellow [facility] Urine glucose detectionOrder ed By: Dr. Trevizo on 08-06-2022 Glucose Ql (U) Normal mg/dl Normal [facility] Urine leukocyte esterase det ection by dipstickOrdered By: Dr. Trevizo on 08-06-2022 Leukocyte esterase Test strip Ql (U) 500 /ul Negative [facility] Urine pHOrdered By: Dr. Wadsworth iff on 08-06-2022 pH (U) 7.0 [pH] 5.0 - 8.0 [facility] Urine sediment bacteria coun t by microscopy (number/high power field)Ordered By: Dr. Trevizo on 08-06-2022 Bacteria LM.HPF (Urine sed) [#/Area] 3 /[HPF] None Seen [facility] Urine specific gravity measu rementOrdered By: Dr. Trevizo on 08-06-2022 Specific gravity (U) [Rel density] 1.005 1.002-1.030 [facility] Urobilinogen Auto test strip Ql (U)Ordered By: Dr. Trevizo on 08-06-2022 Urobilinogen Ql (U) Normal mg/dl Normal [facility] Absolute lymphocyte countOrd ered By: tSef Ewing on 06-04-2022 Lymphocytes Auto (Unsp spec) [#/Vol] 0.87 10*3/uL 0.83-4.51 [facility] Albumin Elph [Mass/Vol]Order ed By: Stef Ewing on 06-04-2022 Albumin [Mass/Vol] 4.0 g/dL 2.9-4.4 [facility] Basophil percentageOrdered B y: Stef Ewing on 06-04-2022 Basophils/100 WBC (Bld) 0.5 % 0-1 [facility] Eosinophils/100 WBC (Bld) 1.6 % 0-5 [facility] LDH [Catalytic activity/Vol] 191 U/L 84-246 [facility] Neutrophils (Bld) [#/Vol] 3.1 10*3/uL 2.0-7.7 [facility] Neutrophils/100 WBC (Bld) 71.4 % 47-70 [facility] WBC (Bld) [#/Vol] 4.3 10*3/uL 4.4-11.0 [facility] Blood erythrocytes count (nu mber/volume)Ordered By: Stef Ewing on 06-04-2022 RBC (Bld) [#/Vol] 3.58 10*6/uL 4.2-5.4 [facility] Blood hemoglobin measurement (mass/volume)Ordered By: Stef Ewing on 06-04-2022 Hemoglobin (Bld) [Mass/Vol] 12.1 g/dL 12.0-15.0 [facility] Blood lymphocytes/100 leukoc ytesOrdered By: Stef Ewing on 06-04-2022 Lymphocytes/100 WBC (Bld) 20.1 % 19-41 [facility] Blood monocytes/100 leukocyt esOrdered By: Stef Ewing on 06-04-2022 Monocytes/100 WBC (Bld) 6.2 % 0-10 [facility] Blood platelet mean volumeOr dered By: Stef Ewing on 06-04-2022 Platelet mean volume (Bld) [Entitic vol] 9.8 fL 6.2-12.0 [facility] Determination of erythrocyte mean corpuscular volume (MCV)Ordered By: Stef Ewing on 06-04-2022 MCV (RBC) [Entitic vol] 101.7 fL 81-99 [facility] Hematocrit Auto (Bld) [Volum e fraction]Ordered By: Stef Ewing on 06-04-2022 Hematocrit (Bld) [Volume fraction] 36.4 % 37-47 [facility] Hemoglobin in reticulocytes (mass per reticulocyte)Ordered By: Stef Ewing on 06-04-2022 Hemoglobin (Reticulocytes) [Entitic mass] 35.8 pg 30-35 [facility] Interpretation of serum or p lasma protein pattern by immunofixation (narrative resultOrdered By: Stef Ewing on 06-04-2022 Protein Fractions Immunofixation Xavier [Interp] See comment [facility] Comment on above: Result: Not Observed Iron measurement (mass/mass) Ordered By: Stef Ewing on 06-04-2022 Iron (Unsp spec) [Mass/Mass] 147 ug/dL 50-170 [facility] Laboratory - Hematology and Cell countsOrdered By: Stef Ewign on 06-04-2022 Erythrocyte distribution width (RBC) [Entitic vol] 49.3 fL 35.1-43.9 [facility] Erythrocyte distribution width (RBC) [Ratio] 13.2 % 11.6-14.6 [facility] Immature granulocytes/100 WBC (Bld) 0.200 % 0.0-0.9 [facility] Comment on above: IG% - Immature Granu locytes (promyelocytes, myelocytes and metamyelocytes) > 1% indicates that a LEFT SHIFT is Present. MCH (RBC) [Entitic mass] 33.8 pg 27.0-32.0 [facility] Nucleated RBC/100 WBC (Bld) [Ratio] 0 % 0-5 [facility] Auto (RBC) [Mass/Vol]Or dered By: Stef Ewing on 06-04-2022 MCHC (RBC) [Mass/Vol] 33.2 g/dL 32-36 [facility] No Panel InformationOrdered By: Stef Ewing on 06-04-2022 Addendum Document Comment . [facility] Comment on above: Protein electrophore sis scan will follow via computer,mail, or barrel raiser delivery. Haptoglobin 60 mg/dL 42-346 [facility] Comment on above: Performed at: [employer] [address] [id number] Director: Martín Hobbs PhD, Phone: [phone] Immature Reticulocyte Fraction 12.90 % 3.00-15.90 [facility] Reticulocyte Count 1.89 % 0.5-1.5 [facility] Total Iron Binding Capacity 280 ug/dL 250-450 [facility] Platelets bldOrdered By: Kt Ewing on 06-04-2022 Platelets (Bld) [#/Vol] 218 10*3/uL 150-450 [facility] Serum [id number] measu rement by electrophoresisOrdered By: Stef Ewing on 06-04-2022 Alpha 1 globulin Elph [Mass/Vol] 0.2 g/dL 0.0-0.4 [facility] Alpha 1 globulin Elph [Mass/Vol] 0.5 g/dL 0.4-1.0 [facility] Serum globulin measurement ( mass/volume)Ordered By: Stef Ewing on 06-04-2022 Globulin (S) [Mass/Vol] 2.5 g/dL 2.2-3.9 [facility] Serum or plasma IgA measurem ent (mass/volume)Ordered By: Stef Ewing on 06-04-2022 IgA [Mass/Vol] 178 mg/dL 64-422 [facility] Serum or plasma IgG measurem ent (mass/volume)Ordered By: Stef Ewing on 06-04-2022 IgG [Mass/Vol] 999 mg/dL [phone] [facility] Serum or plasma IgM measurem ent (mass/volume)Ordered By: Stef Ewing on 06-04-2022 IgM [Mass/Vol] 85 mg/dL 26-217 [facility] Serum or plasma beta globuli n measurement by electrophoresis (mass/volume)Ordered By: Stef Ewing on 06-04-2022 Beta globulin Elph [Mass/Vol] 0.9 g/dL 0.7-1.3 [facility] Serum or plasma ferritin pineda surement (mass/volume)Ordered By: Stef Ewing on 06-04-2022 Ferritin [Mass/Vol] 13 ng/mL 8-252 [facility] Serum or plasma gamma globul in measurement by electrophoresis (mass/volume)Ordered By: Stef Ewing on 06-04-2022 Gamma globulin Elph [Mass/Vol] 0.9 g/dL 0.4-1.8 [facility] Serum or plasma immunoelectr ophoresis interpretation (nominal result)Ordered By: Stef Ewing on 06-04-2022 Interpretation IEP [Interp] Comment . [facility] Comment on above: No monoclonality det ected. Thin prep Papanicolaou smear with manual screeningOrdered By: Stef Ewing on 06-04-2022 Thin prep Papanicolaou smear with manual screening 1.7 0.7-1.7 [facility] Total protein bloodOrdered B y: Stef Ewing on 06-04-2022 Protein [Mass/Vol] 6.5 g/dL 6.0-8.5 [facility] Absolute lymphocyte countOrd ered By: Dr. Orlando on 05-06-2022 Lymphocytes Auto (Unsp spec) [#/Vol] 0.95 10*3/uL 0.83-4.51 [facility] Basophil percentageOrdered B y: Dr. Orlando on 05-06-2022 Basophils/100 WBC (Bld) 0.9 % 0-1 [facility] Eosinophils/100 WBC (Bld) 4.4 % 0-5 [facility] Neutrophils (Bld) [#/Vol] 2.0 10*3/uL 2.0-7.7 [facility] Neutrophils/100 WBC (Bld) 57.1 % 47-70 [facility] WBC (Bld) [#/Vol] 3.4 10*3/uL 4.4-11.0 [facility] Blood erythrocytes count (nu mber/volume)Ordered By: Dr. Orlando on 05-06-2022 RBC (Bld) [#/Vol] 3.49 10*6/uL 4.2-5.4 [facility] Blood hemoglobin measurement (mass/volume)Ordered By: Dr. Oralndo on 05-06-2022 Hemoglobin (Bld) [Mass/Vol] 11.5 g/dL 12.0-15.0 [facility] Blood lymphocytes/100 leukoc ytesOrdered By: Dr. Orlando on 05-06-2022 Lymphocytes/100 WBC (Bld) 27.9 % 19-41 [facility] Blood monocytes/100 leukocyt esOrdered By: Dr. Orlando on 05-06-2022 Monocytes/100 WBC (Bld) 9.4 % 0-10 [facility] Blood platelet mean volumeOr dered By: Dr. Orlando on 05-06-2022 Platelet mean volume (Bld) [Entitic vol] 9.6 fL 6.2-12.0 [facility] Determination of erythrocyte mean corpuscular volume (MCV)Ordered By: Dr. Orlando on 05-06-2022 MCV (RBC) [Entitic vol] 101.4 fL 81-99 [facility] Hematocrit Auto (Bld) [Volum e fraction]Ordered By: Dr. Orlando on 05-06-2022 Hematocrit (Bld) [Volume fraction] 35.4 % 37-47 [facility] Iron measurement (mass/mass) Ordered By: Dr. Orlando on 05-06-2022 Iron (Unsp spec) [Mass/Mass] 149 ug/dL 50-170 [facility] Laboratory - Hematology and Cell countsOrdered By: Dr. Orlando on 05-06-2022 Erythrocyte distribution width (RBC) [Entitic vol] 49.5 fL 35.1-43.9 [facility] Erythrocyte distribution width (RBC) [Ratio] 13.2 % 11.6-14.6 [facility] Immature granulocytes/100 WBC (Bld) 0.300 % 0.0-0.9 [facility] Comment on above: IG% - Immature Granu locytes (promyelocytes, myelocytes and metamyelocytes) > 1% indicates that a LEFT SHIFT is Present. MCH (RBC) [Entitic mass] 33.0 pg 27.0-32.0 [facility] Nucleated RBC/100 WBC (Bld) [Ratio] 0 % 0-5 [facility] MCHC Auto (RBC) [Mass/Vol]Or dered By: Dr. Orlando on 05-06-2022 MCHC (RBC) [Mass/Vol] 32.5 g/dL 32-36 [facility] No Panel InformationOrdered By: Dr. Orlando on 05-06-2022 Total Iron Binding Capacity 246 ug/dL 250-450 [facility] Platelets bldOrdered By: Dr. Orlando on 05-06-2022 Platelets (Bld) [#/Vol] 213 10*3/uL 150-450 [facility] Serum or plasma ferritin pineda surement (mass/volume)Ordered By: Dr. Orlando on 05-06-2022 Ferritin [Mass/Vol] 16 ng/mL 8-252 [facility] Serum or plasma iron saturat ion measurement (mass fraction)Ordered By: Dr. Orlando on 05-06-2022 Iron saturation [Mass fraction] 60.6 % 15.0-55.0 [facility] Absolute lymphocyte counton 02-06-2022 Lymphocytes Auto (Unsp spec) [#/Vol] 0.86 10*3/uL 0.83-4.51 [facility] Work Phone: Basophil percentageon 2021 Basophils/100 WBC (Bld) 0.6 % 0-1 [facility] Work Phone: Eosinophils/100 WBC (Bld) 4.7 % 0-5 [facility] Work Phone: Neutrophils (Bld) [#/Vol] 2.1 10*3/uL 2.0-7.7 [facility] Work Phone: Neutrophils/100 WBC (Bld) 61.5 % 47-70 [facility] Work Phone: WBC (Bld) [#/Vol] 3.4 10*3/uL 4.4-11.0 [facility] Work Phone: [phone] Blood erythrocytes count (nu mber/volume)on 02-06-2022 RBC (Bld) [#/Vol] 3.77 10*6/uL 4.2-5.4 [facility] Work Phone: Blood hemoglobin measurement (mass/volume)on 02-06-2022 Hemoglobin (Bld) [Mass/Vol] 10.7 g/dL 12.0-15.0 [facility] Work Phone: Blood lymphocytes/100 leukoc yteson 02-06-2022 Lymphocytes/100 WBC (Bld) 25.5 % 19-41 [facility] Work Phone: [phone] Blood monocytes/100 leukocyt eson 02-06-2022 Monocytes/100 WBC (Bld) 7.4 % 0-10 [facility] Work Phone: Blood platelet mean volumeon 02-06-2022 Platelet mean volume (Bld) [Entitic vol] 8.7 fL 6.2-12.0 [facility] Work Phone: Determination of erythrocyte mean corpuscular volume (MCV)on 02-06-2022 MCV (RBC) [Entitic vol] 89.1 fL 81-99 [facility] Work Phone: Hematocrit Auto (Bld) [Volum e fraction]on 02-06-2022 Hematocrit (Bld) [Volume fraction] 33.6 % 37-47 [facility] Work Phone: Hemoglobin in reticulocytes (mass per reticulocyte)Ordered By: Dr. Orlando on 02-06-2022 Hemoglobin (Reticulocytes) [Entitic mass] 34.5 pg 30-35 [facility] Iron measurement (mass/mass) on 02-06-2022 Iron (Unsp spec) [Mass/Mass] 180 ug/dL 50-170 [facility] Work Phone: Laboratory - Chemistry and C hemistry - challengeOrdered By: Dr. Orlando on 02-06-2022 Cobalamin (Vitamin B12) [Mass/Vol] 357 pg/mL 211-911 [facility] Laboratory - Hematology and Cell countsOrdered By: Dr. Orlando on 02-06-2022 Anisocytosis Ql (Bld) 1+ [facility] Laboratory - Hematology and Cell countson 02-06-2022 Erythrocyte distribution width (RBC) [Entitic vol] 87.0 fL 35.1-43.9 [facility] Work Phone: [phone] Erythrocyte distribution width (RBC) [Ratio] 28.3 % 11.6-14.6 [facility] Work Phone: [phone] Immature granulocytes/100 WBC (Bld) 0.300 % 0.0-0.9 [facility] Work Phone: [phone] Comment on above: IG% - Immature Granu locytes (promyelocytes, myelocytes and metamyelocytes) > 1% indicates that a LEFT SHIFT is Present. MCH (RBC) [Entitic mass] 28.4 pg 27.0-32.0 [facility] Work Phone: [phone] Nucleated RBC/100 WBC (Bld) [Ratio] 0 % 0-5 [facility] Work Phone: [phone] MCHC Auto (RBC) [Mass/Vol]on 02-06-2022 MCHC (RBC) [Mass/Vol] 31.8 g/dL 32-36 [facility] Work Phone: No Panel InformationOrdered By: Dr. Orlando on 02-06-2022 Immature Reticulocyte Fraction 10.80 % 3.00-15.90 [facility] Reticulocyte Count 1.16 % 0.5-1.5 [facility] No Panel Informationon 02-06 Total Iron Binding Capacity 293 ug/dL 250-450 [facility] Work Phone: No Panel InformationOrdered By: Fransisca Orlando on 02-06-2022 1+ [facility] Platelets bldon 02-06-2022 Platelets (Bld) [#/Vol] 188 10*3/uL 150-450 [facility] Work Phone: Serum or plasma ferritin pineda surement (mass/volume)on 02-06-2022 Ferritin [Mass/Vol] 14 ng/mL 8-252 [facility] Work Phone: Serum or plasma iron saturat ion measurement (mass fraction)on 02-06-2022 Iron saturation [Mass fraction] 61.4 % 15.0-55.0 [facility] Work Phone: Absolute lymphocyte counton 01-03-2022 Lymphocytes Auto (Unsp spec) [#/Vol] 0.87 10*3/uL 0.83-4.51 [facility] Work Phone: Basophil percentageon 2021 Basophils/100 WBC (Bld) 1.0 % 0-1 [facility] Work Phone: Eosinophils/100 WBC (Bld) 3.9 % 0-5 [facility] Work Phone: Neutrophils (Bld) [#/Vol] 2.7 10*3/uL 2.0-7.7 [facility] Work Phone: Neutrophils/100 WBC (Bld) 66.5 % 47-70 [facility] Work Phone: WBC (Bld) [#/Vol] 4.1 10*3/uL 4.4-11.0 [facility] Work Phone: Blood erythrocytes count (nu mber/volume)on 01-03-2022 RBC (Bld) [#/Vol] 4.13 10*6/uL 4.2-5.4 [facility] Work Phone: Blood hemoglobin measurement (mass/volume)on 01-03-2022 Hemoglobin (Bld) [Mass/Vol] 9.5 g/dL 12.0-15.0 [facility] Work Phone: Blood lymphocytes/100 leukoc yteson 01-03-2022 Lymphocytes/100 WBC (Bld) 21.1 % 19-41 [facility] Work Phone: Blood manual differential co mment interpretation (narrative result)on 01-03-2022 Manual differential comment Xavier (Bld) [Interp] SCANNED [facility] Work Phone: Blood monocytes/100 leukocyt eson 01-03-2022 Monocytes/100 WBC (Bld) 7.3 % 0-10 [facility] Work Phone: Blood platelet mean volumeon 01-03-2022 Platelet mean volume (Bld) [Entitic vol] 9.4 fL 6.2-12.0 [facility] Work Phone: Determination of erythrocyte mean corpuscular volume (MCV)on 01-03-2022 MCV (RBC) [Entitic vol] 79.4 fL 81-99 [facility] Work Phone: Hematocrit Auto (Bld) [Volum e fraction]on 01-03-2022 Hematocrit (Bld) [Volume fraction] 32.8 % 37-47 [facility] Work Phone: [phone] Hypochromatic red blood cell detectionon 01-03-2022 Hypochromia Ql (Bld) 3+ [facility] Work Phone: Laboratory - Hematology and Cell countson 01-03-2022 Anisocytosis Ql (Bld) 2+ [facility] Work Phone: [phone] Erythrocyte distribution width (RBC) [Entitic vol] 66.3 fL 35.1-43.9 [facility] Work Phone: [phone] Erythrocyte distribution width (RBC) [Ratio] 25.1 % 11.6-14.6 [facility] Work Phone: [phone] Immature granulocytes/100 WBC (Bld) 0.200 % 0.0-0.9 [facility] Work Phone: Comment on above: IG% - Immature Granu locytes (promyelocytes, myelocytes and metamyelocytes) > 1% indicates that a LEFT SHIFT is Present. MCH (RBC) [Entitic mass] 23.0 pg 27.0-32.0 [facility] Work Phone: Nucleated RBC/100 WBC (Bld) [Ratio] 0 % 0-5 [facility] Work Phone: MCHC Auto (RBC) [Mass/Vol]on 01-03-2022 MCHC (RBC) [Mass/Vol] 29.0 g/dL 32-36 [facility] Work Phone: Platelets bldon 01-03-2022 Platelets (Bld) [#/Vol] 216 10*3/uL 150-450 [facility] Work Phone: Albumin Elph [Mass/Vol]on Albumin [Mass/Vol] 3.8 g/dL 2.9-4.4 [facility] Work Phone: Atypical perinuclear antineu trophil cytoplasmic antibodies measurementon 12-27-2021 Neutrophil cytoplasmic Ab.perinuclear.atypical IF (S) [Titer] <1:20 titer Neg:<1:20 [facility] Work Phone: Comment on above: The atypical pANCA p attern has been observed in asignificant percentage of patients with ulcerative colitis,primary sclerosing cholangitis and autoimmune hepatitis. Basophil percentageon 2021 Basophil percentage < 0.2 AI 0.0-0.9 [facility] Work Phone: Interpretation of serum or p lasma protein pattern by immunofixation (narrative resulton 12-27-2021 Protein Fractions Immunofixation Xavier [Interp] See comment [facility] Work Phone: Comment on above: Result: Not Observed Laboratory - Chemistry and C hemistry - challengeon 12-27-2021 Cobalamin (Vitamin B12) [Mass/Vol] 388 pg/mL 211-911 [facility] Work Phone: Free T4 [Mass/Vol] 0.95 ng/dL 0.76-1.46 [facility] Work Phone: No Panel Informationon 12-27 Addendum Document Comment . [facility] Work Phone: Comment on above: Protein electrophore sis scan will follow via computer,mail, or barrel raiser delivery. Centromere B Antibody <0.2 AI 0.0-0.9 [facility] Work Phone: [phone] Endomysial IgA Antibody Negative Negative [facility] Work Phone: [phone] Free Triiodothyronine (T3) pg/dL 2.2 pg/mL 2.18-3.98 [facility] Work Phone: [phone] Immunoglobulin E 83 IU/mL 6-495 [facility] Work Phone: [phone] Comment on above: Performed at: [email or web address] [place], [place] [id number] Director: Martín Hobbs PhD, Phone: [phone] at: [facility] [id number] Director: Eliel Hu MD, Phone: [phone] [employer] Antibody 1.1 AI 0.0-0.9 [facility] Work Phone: [phone] Thyroid Stimulating Hormone (TSH) 1.85 uIU/mL 0.358-3.74 [facility] Work Phone: [phone] Serum DNA double strand anti body assay (units/volume)on 12-27-2021 DNA double strand Ab Qn (S) [IU]/mL 0-9 [facility] Work Phone: [phone] Comment on above: Negative <5 Equivoca l 5 - 9 Positive >9 Serum IgA measurement (units /volume)on 12-27-2021 IgA Qn (S) 198 mg/dL 87-352 [facility] Work Phone: [phone] Comment on above: Performed at: [id number] [place], [place] [id number] Director: Martín Hobbs PhD, Phone: [phone] Serum Sharda-1 antibody assay (u nits/volume)on 12-27-2021 Sharda-1 extractable nuclear Ab Qn (S) <0.2 AI 0.0-0.9 [facility] Work Phone: [phone] Serum Scl-70 extractable nuc lear antibody assay (units/volume)on 12-27-2021 SCL-70 extractable nuclear Ab Qn (S) <0.2 AI 0.0-0.9 [facility] Work Phone: [phone] Serum Acuna extractable nucl ear antibody detectionon 12-27-2021 Acuna extractable nuclear Ab Ql (S) <0.2 AI 0.0-0.9 [facility] Work Phone: [phone] Serum [id number] measu rement by electrophoresison 12-27-2021 Alpha 1 globulin Elph [Mass/Vol] 0.3 g/dL 0.0-0.4 [facility] Work Phone: [phone] Alpha 1 globulin Elph [Mass/Vol] 0.6 g/dL 0.4-1.0 [facility] Work Phone: [phone] Serum classic neutrophil cyt oplasmic antibody assay (units/volume)on 12-27-2021 Neutrophil cytoplasmic Ab.classic Qn (S) <1:20 titer Neg:<1:20 [facility] Work Phone: [phone] Serum globulin measurement ( mass/volume)on 12-27-2021 Globulin (S) [Mass/Vol] 3.1 g/dL 2.2-3.9 [facility] Work Phone: [phone] Serum or plasma IgA measurem ent (mass/volume)on 12-27-2021 IgA [Mass/Vol] 194 mg/dL 87-352 [facility] Work Phone: [phone] Serum or plasma IgG measurem ent (mass/volume)on 12-27-2021 IgG [Mass/Vol] 1080 mg/dL [phone] [facility] Work Phone: [phone] Serum or plasma IgM measurem ent (mass/volume)on 12-27-2021 IgM [Mass/Vol] 97 mg/dL 26-217 [facility] Work Phone: [phone] Serum or plasma actin IgG an tibody assay (units/volume)on 12-27-2021 Actin IgG Qn 4 Units 0-19 [facility] Work Phone: [phone] Comment on above: Negative 0 - 19 Weak positive 20 - 30 Moderate to strong positive >30 Actin Antibodies are found in 52-85% of patients with autoimmune hepatitis or chronic active hepatitis and in 22% of patients with primary biliary cirrhosis. Serum or plasma beta globuli n measurement by electrophoresis (mass/volume)on 12-27-2021 Beta globulin Elph [Mass/Vol] 1.0 g/dL 0.7-1.3 [facility] Work Phone: Serum or plasma gamma globul in measurement by electrophoresis (mass/volume)on 12-27-2021 Gamma globulin Elph [Mass/Vol] 1.1 g/dL 0.4-1.8 [facility] Work Phone: Serum or plasma immunoelectr ophoresis interpretation (nominal result)on 12-27-2021 Interpretation IEP [Interp] Comment . [facility] Work Phone: Comment on above: No monoclonality det ected. Serum perinuclear neutrophil cytoplasmic antibody titer by immunofluorescenceon 12-27-2021 Neutrophil cytoplasmic Ab.perinuclear IF (S) [Titer] <1:20 titer Neg:<1:20 [facility] Work Phone: Comment on above: The presence of posi tive fluorescence exhibiting P-ANCA orC-ANCA patterns alone is not specific for the diagnosis ofWegener's Granulomatosis (WG) or microscopic polyangiitis.Decisions about treatment should not be based solely onANCA IFA results. The [employer] Consensusrecommends follow up testing of positive sera with both SD-3 and MPO-ANCA enzyme immunoassays. As many as 5% serumsamples are positive only by EIA. Ref. AM J Clin [id number];111:507-513. Serum tissue transglutaminas e IgA antibody assay (units/volume)on 12-27-2021 tTG IgA Qn (S) 3 U/mL 0-3 [facility] Work Phone: Comment on above: Negative 0 - 3 Weak Positive 4 - 10 Positive >10 Tissue Transglutaminase (tTG) has been identified as the endomysial antigen. Studies have demonstr- ated that endomysial IgA antibodies have over 99% specificity for gluten sensitive enteropathy. Thin prep Papanicolaou smear with manual screeningon 12-27-2021 Thin prep Papanicolaou smear with manual screening 1.3 0.7-1.7 [facility] Work Phone: Total protein bloodon 2021 Protein [Mass/Vol] 6.9 g/dL 6.0-8.5 [facility] Work Phone: Absolute lymphocyte counton 12-26-2021 Lymphocytes Auto (Unsp spec) [#/Vol] 0.84 10*3/uL 0.83-4.51 [facility] Work Phone: Basophil percentageon 2021 Basophils/100 WBC (Bld) 0.8 % 0-1 [facility] Work Phone: Chloride [Moles/Vol] 104 mmol/L 98-107 [facility] Work Phone: Eosinophils/100 WBC (Bld) 9.7 % 0-5 [facility] Work Phone: Glucose [Mass/Vol] 93 mg/dL 74-106 [facility] Work Phone: Neutrophils (Bld) [#/Vol] 1.2 10*3/uL 2.0-7.7 [facility] Work Phone: Neutrophils/100 WBC (Bld) 45.7 % 47-70 [facility] Work Phone: Potassium [Moles/Vol] 3.9 mmol/L 3.5-5.1 [facility] Work Phone: Sodium [Moles/Vol] 138 mmol/L 136-145 [facility] Work Phone: WBC (Bld) [#/Vol] 2.6 10*3/uL 4.4-11.0 [facility] Work Phone: Blood erythrocytes count (nu mber/volume)on 12-26-2021 RBC (Bld) [#/Vol] 2.76 10*6/uL 4.2-5.4 [facility] Work Phone: Blood hemoglobin measurement (mass/volume)on 12-26-2021 Hemoglobin (Bld) [Mass/Vol] 5.4 g/dL 12.0-15.0 [facility] Work Phone: Comment on above: CRITICAL VALUE VERIF IED. CALLED TO EFE ENAMORADO WITH DR. ARCE12/26/21 7137 Jennifer Fulton.RESULTS READ BACK BY SAME . Blood lymphocytes/100 leukoc yteson 12-26-2021 Lymphocytes/100 WBC (Bld) 32.6 % 19-41 [facility] Work Phone: [phone] Blood manual differential co mment interpretation (narrative result)on 12-26-2021 Manual differential comment Xavier (Bld) [Interp] SCANNED [facility] Work Phone: [phone] Blood monocytes/100 leukocyt eson 12-26-2021 Monocytes/100 WBC (Bld) 11.2 % 0-10 [facility] Work Phone: [phone] Blood platelet mean volumeon 12-26-2021 Platelet mean volume (Bld) [Entitic vol] 10.4 fL 6.2-12.0 [facility] Work Phone: Blood schistocytes detection by light microscopyon 12-26-2021 Schistocytes LM Ql (Bld) 1+ [facility] Work Phone: [phone] Determination of erythrocyte mean corpuscular volume (MCV)on 12-26-2021 MCV (RBC) [Entitic vol] 71.4 fL 81-99 [facility] Work Phone: [phone] Hematocrit Auto (Bld) [Volum e fraction]on 12-26-2021 Hematocrit (Bld) [Volume fraction] 19.7 % 37-47 [facility] Work Phone: [phone] Hypochromatic red blood cell detectionon 12-26-2021 Hypochromia Ql (Bld) 4+ [facility] Work Phone: [phone] Iron measurement (mass/mass) on 12-26-2021 Iron (Unsp spec) [Mass/Mass] 9 ug/dL 50-170 [facility] Work Phone: [phone] Laboratory - Chemistry and C hemistry - challengeon 12-26-2021 CO2 [Moles/Vol] 29.0 mmol/L 21.0-32.0 [facility] Work Phone: [phone] Urea nitrogen/Creatinine [Mass ratio] 25.4 mg/mg 10-20 [facility] Work Phone: [phone] Laboratory - Hematology and Cell countson 12-26-2021 Erythrocyte distribution width (RBC) [Entitic vol] 54.2 fL 35.1-43.9 [facility] Work Phone: [phone] Erythrocyte distribution width (RBC) [Ratio] 21.2 % 11.6-14.6 [facility] Work Phone: [phone] Immature granulocytes/100 WBC (Bld) 0.000 % 0.0-0.9 [facility] Work Phone: [phone] Comment on above: IG% - Immature Granu locytes (promyelocytes, myelocytes and metamyelocytes) > 1% indicates that a LEFT SHIFT is Present. MCH (RBC) [Entitic mass] 19.6 pg 27.0-32.0 [facility] Work Phone: [phone] Nucleated RBC/100 WBC (Bld) [Ratio] 0 % 0-5 [facility] Work Phone: [phone] MCHC Auto (RBC) [Mass/Vol]on 12-26-2021 MCHC (RBC) [Mass/Vol] 27.4 g/dL 32-36 [facility] Work Phone: [phone] Panel Informationon 12-26 Total Iron Binding Capacity 413 ug/dL 250-450 [facility] Work Phone: [phone] Estimated GFR (MDRD) Amer 167 mL/min >60 [facility] Work Phone: [phone] Comment on above: GFR Calc Estimated GFR (MDRD) Non-Af Amer 138 mL/min >60 [facility] Work Phone: [phone] Comment on above: Non- GFR Calc Thyroid Stimulating Hormone (TSH) 3.23 uIU/mL 0.358-3.74 [facility] Work Phone: [phone] Platelets bldon 12-26-2021 Platelets (Bld) [#/Vol] 180 10*3/uL 150-450 [facility] Work Phone: [phone] Review by pathologiston 12-03 Pathologist review Xavier (Unsp spec) [Interp] Cecile looney [facility] Work Phone: [phone] Pathologist review Xavier (Unsp spec) [Interp] Reviewed [facility] Work Phone: [phone] Comment on above: Previous reported re sult: Cecile looney Edited by: RGOOD on 12/27/21:1511Leukopenia and neutropenia. Severe Microcytic anemia.Clinical correlation necessary.Navneet Henriquez M.D. 12/27/21 AMENDED REPORT 12/27/21 1511 PATH REV previously reported as: Cecile looney Serum or plasma calcium cedric urement (mass/volume)on 12-26-2021 Calcium [Mass/Vol] 7.8 mg/dL 8.5-10.1 [facility] Work Phone: [phone] Serum or plasma creatinine m easurement (mass/volume)on 12-26-2021 Creatinine [Mass/Vol] 0.47 mg/dL 0.55-1.02 [facility] Work Phone: [phone] Comment on above: The validity of the calculated GFR & GFRAA in patients over 70 years has not been determined. Clinical correlation is essential. Serum or plasma ferritin pineda surement (mass/volume)on 12-26-2021 Ferritin [Mass/Vol] 4 ng/mL 8 [facility] Work Phone: [phone] Serum or plasma urea nitroge n measurement (mass/volume)on 12-26-2021 Urea nitrogen [Mass/Vol] 12 mg/dL 7-18 [facility] Work Phone: [phone] Thin prep Papanicolaou smear with manual screeningon 12-26-2021 Thin prep Papanicolaou smear with manual screening 2+ [facility] Work Phone: [phone] Thin prep Papanicolaou smear with manual screening 5 5-15 [facility] Work Phone: No Panel Informationon 10-25 Vitamin D 25-Hydroxy 63.1 ng/mL [facility] Work Phone: Comment on above: Vitamin D 25(OH) Sta tus Range Deficiency <20 ng/mL (50nmol/L) Insufficiency 20 - 30 ng/mL (50 - 75 nmol/L) Sufficiency 30 - 100 ng/mL (75 - 250 nmol/L) Toxicity >100 ng/mL (>250 nmol/L) Basophil percentageon 2021 Basophil percentage < 0.6 mg/dL 0.55-1.02 [facility] Work Phone: No Panel Informationon 05-15 Bedside Estimated GFR (eGFR) > 60.0000 mL/min >60 [facility] Work Phone: Bacteria identified Anaer cx Nom (Unsp spec)on 04-30-2021 Anaerobic microbial culture No anaerobic bacteria isolated. [facility] Work Phone: Bacteria identified Cx Nom ( Wound)on 04-30-2021 Wound Culture Staphylococcus warneri [facility] Work Phone: Gram stain for investigation of transfusion reactionon 04-30-2021 Microscopic observation Gram stain Nom (Unsp spec) [facility] Work Phone: [id number] FACS Ass ay, BldOrdered By: Gi Frances on 10-09-2020 NMO/AQP4 FACS Negative Negative [facility] Comment on above: Recommend repeat gilmar ting in 6 months if clinical suspicion is high. Negative result can occur in the setting of immunosuppression. ADDITIONAL INFORMATION This test was developed and its performance characteristics determined by [facility] in a manner consistent with CLIA requirements. This test has not been cleared or approved by the U.S. Food and Drug Administration. Test Performed by: [facility] - [address] [address] [place]: Ric Lantigua M.D. Ph.D.; CLIA# [id number] [facility] MOG FACS,SOrdered By: Aileen Frances on 10-08-2020 MOG FACS, S Negative Negative [facility] Comment on above: No informative autoa ntibodies were detected in this evaluation. A negative result does not preclude a diagnosis of an inflammatory [employer] demyelinating disorder. ADDITIONAL INFORMATION This test was developed and its performance characteristics determined by [facility] in a manner consistent with CLIA requirements. This test has not been cleared or approved by the U.S. Food and Drug Administration. Test Performed by: [facility] [place] [address] [place]: Ric Lantigua M.D. Ph.D.; CLIA# [id number] [facility] Comprehensive metabolic 2000 panelOrdered By: Gi Frances on 10-04-2020 Albumin [Mass/Vol] 3.9 g/dL 3.2 - 5.2 g/dL [facility] ALP [Catalytic activity/Vol] 50 U/L 40 - 150 U/L [facility] ALT [Catalytic activity/Vol] 11 U/L 0 - 40 U/L [facility] Anion gap [Moles/Vol] 12 mmol/L 10 - 2 0 mmol/L [facility] AST [Catalytic activity/Vol] 17 U/L 0 - 45 U/L [facility] Bilirubin [Mass/Vol] mg/dL 0.0 - 1 .3 mg/dL [facility] Calcium [Mass/Vol] 9.2 mg/dL 8.4 - 10. 2 mg/dL [facility] Chloride [Moles/Vol] 101 mmol/L 98 - 10 8 mmol/L [facility] Creatinine [Mass/Vol] 0.42 mg/dL Low 0.60 - 1.20 [facility] GFR/1.73 sq M.predicted CKD-EPI (S/P/Bld) [Vol rate/Area] 105 >=60 mL/min/1.73 m2 [facility] Glucose [Mass/Vol] 92 mg/dL 65 - 99 mg/dL [facility] HCO3 [Moles/Vol] 30 mmol/L 21 - 32 mmol/L [facility] Interpretation and review of laboratory results Abnormal [facility] Potassium [Moles/Vol] 4.4 mmol/L 3.5 - 5.1 mmol/L [facility] Protein [Mass/Vol] 6.0 g/dL 6.0 - 8.0 g/dL [facility] Sodium [Moles/Vol] 139 mmol/L 135 - 145 mmol/L [facility] Urea nitrogen [Mass/Vol] 9 mg/dL 8 - 25 mg/dL [facility] Urea nitrogen/Creatinine [Mass ratio] 21.4 mg/mg High [facility] The eGFR should be used for monitoring renal function only and not for medication dosing. [facility] MR CERVICAL SPINE WITH AND W ITHOUT CONTRASTon 10-04-2020 MR CERVICAL SPINE WITH AND WITHOUT CONTRAST EXAMINATION: MR CERVICAL SPINE WITH AND WITHOUT CONTRAST HISTORY: ORDERING SYSTEM PROVIDED HISTORY: Radiographic monitoring of thoracic transverse myelitis, TECHNOLOGIST PROVIDED HISTORY: Illness/Other Reason for Exam: Radiographic monitoring of thoracic transverse myelitis Encounter Type: Unknown Additional Signs and Symptoms: None ORDERING SYSTEM PROVIDED DIAGNOSIS CODES: G37.3 Transverse myelitis (HCC) COMPARISON: None. TECHNIQUE: Sagittal T1, T2, STIR, axial T2 and T2 gradient, postcontrast sagittal and axial T1 images were obtained. CONTRAST: GADOTERATE MEGLUMINE 0.5 MMOL/ML (376.9 MG/ML) INTRAVENOUS SOLUTION - 10 mL FINDINGS: The exam is limited by patient motion artifact. Motion artifact is most pronounced on the axial images. There is mild anterolisthesis at C2-C3 and C3-C4 measuring 2 mm. There is mild reversal of the cervical spine curvature. The signal in the bone marrow spaces is appropriate. No suspicious osseous lesions. Visualized posterior fossa contents are unremarkable. C2-C3, mild degenerative disc disease. Moderate facet arthropathy on the left. Mild anterolisthesis. No spinal stenosis. Moderate left foraminal narrowing. C3-C4, moderate facet arthropathy. Grade 1 anterolisthesis measures 2 mm. Mild degenerative disc disease. Diffuse disc bulge. There is mild spinal canal stenosis. Moderate bilateral foraminal narrowing. C4-C5, mild degenerative disc disease. Mild facet arthropathy. Mild disc bulge. No spinal stenosis. No foraminal narrowing. C5-C6, severe degenerative disc disease. No significant spinal stenosis. Uncovertebral osteophytes result in moderate foraminal narrowing bilaterally. C6-C7, severe degenerative disc disease. No spinal stenosis. Moderate foraminal narrowing bilaterally. C7-T1, no spinal stenosis. No foraminal narrowing. No spinal cord compression. No abnormal signal or pathologic enhancement in the cervical spinal cord. No paraspinal masses. IMPRESSION: 1. No abnormal signal or pathologic enhancement in the cervical spine. 2. Severe degenerative disc disease at C5-C6 and C6-C7. Mild degenerative disc disease at the remainder of the cervical levels. Multilevel facet arthropathy. 3. Grade 1 anterolisthesis at C2-C3 and C3-C4 measures 2 mm. 4. Mild spinal canal stenosis at C3-C4. Foraminal narrowing at multiple levels as described above. Remote Assistant/[employer] Workstation ID: [id number] Dictated by: PADMINI US on ThuOct 04, 2020 9:23:23 PM EDT Transcribed by: KAY THOMPSON on ThuOct 04, 2020 10:02:37 PM EDT Finalized by: PADMINI US on ThuOct 05, 2020 7:06:01 AM EDT Normal [facility] Comment on above: Order Comment: Must be on a 3 [employer] MRI machine per [place] Protocol Injury/Trauma or Illness?:Illness/Other How long have you had these symptoms (acute/chronic)?:Unknown Reason for exam?:Radiographic monitoring of thoracic transverse myelitis Type of Exam?:Unknown Additional signs and symptoms?:none MR THORACIC SPINE WITH AND W ITHOUT CONTRASTon 10-04-2020 MR THORACIC SPINE WITH AND WITHOUT CONTRAST EXAMINATION: MR THORACIC SPINE WITH AND WITHOUT CONTRAST HISTORY: ORDERING SYSTEM PROVIDED HISTORY: Radiographic monitoring of thoracic transverse myelitis, TECHNOLOGIST PROVIDED HISTORY: Illness/Other Reason for exam: Radiographic monitoring of thoracic transverse myelitis Encounter Type: Unknown Additional signs and symptoms: Radiographic monitoring of thoracic transverse myelitis ORDERING SYSTEM PROVIDED DIAGNOSIS CODES: G37.3 Transverse myelitis (HCC) COMPARISON: None. TECHNIQUE: Sagittal T1, T2, STIR, axial T2, postcontrast sagittal and axial T1 images were obtained through the thoracic spine. CONTRAST: GADOTERATE MEGLUMINE 0.5 MMOL/ML (376.9 MG/ML) INTRAVENOUS SOLUTION - 10 mL, FINDINGS: Mild motion artifact limits the exam. Alignment normal. No subluxation. Vertebral body heights normal. No acute compression fracture. Signal in the bone marrow spaces is appropriate. No bone marrow edema. Mild multilevel degenerative disc disease. No significant thoracic spinal canal stenosis. No significant neural foraminal narrowing. No spinal cord compression. The lumbar spinal cord is severely atrophic at T9-10 through the T11-12 levels. There is significant volume loss in the thoracic spinal cord. This is most pronounced at T10-11. No additional lesions are clearly identified in the thoracic spinal cord. There is no pathologic enhancement in the thoracic spinal cord. No masses in the spinal canal. No paraspinal masses. IMPRESSION: 1. Severe atrophy of the lower spinal cord at T9-10 through T11-12. This is most severe at the T10-T11 level. There is severe volume loss in the cord at these levels. No abnormal enhancement in this location. This may be the result of previous inflammation/transver se myelitis. 2. No additional lesions identified in the thoracic spinal cord. No enhancing lesions in the thoracic spinal cord. 3. Normal alignment. Mild multilevel degenerative disc disease. No spinal stenosis. No compression fractures. [employer] Workstation ID: [id number] Dictated by: PADMINI US on ThuOct 04, 2020 9:28:23 PM EDT Transcribed by: CHRISTOPHE RENDON on ThuOct 04, 2020 10:00:36 PM EDT Finalized by: PADMINI US on ThuOct 05, 2020 7:05:53 AM EDT Normal [facility] Comment on above: Order Comment: Injur y/Trauma or Illness?:Illness/Other How long have you had these symptoms (acute/chronic)?:Unknown Reason for exam?:Radiographic monitoring of thoracic transverse myelitis Type of Exam?:Unknown Additional signs and symptoms?:Radiographic monitoring of thoracic transverse myelitis No Panel InformationOrdered By: Gi Franecs on 10-04-2020 Interpretation and review of laboratory results Normal [facility] TSH DL <= 0.005 mIU/L QnOrde red By: Gi Frances on 10-04-2020 TSH Qn 2.00 m[IU]/L [facility] VITAMIN D, TOTAL, 25-OHOrder ed By: Gi Frances on 10-04-2020 25-hydroxyvitamin D [Mass/Vol] 48 ng/mL 30 - 100 ng/mL [facility] Comment on above: Vitamin D status: Deficiency: <10 ng/mL Insufficiency: 10-30 ng/mL Sufficiency: 30-100 ng/mL Toxicity: >100 ng/mL Interpretation and review of laboratory results Normal [facility] Assay performed usin g [employer] CLIA methodology. [facility] Vitamin [id number] By: Gaurang Frances on 10-04-2020 Cobalamin (Vitamin B12) [Mass/Vol] 558 pg/mL 232 - 1245 pg/mL [facility] CT COMPARISON IMPORTOrdered By: Provider System on 09-10-2020 This order has been auto-finalized and does not contain a result. [facility] MR COMPARISON IMPORTOrdered By: Provider System on 09-10-2020 This order has been auto-finalized and does not contain a result. [facility] XR COMPARISON IMPORTOrdered By: Provider System on 09-10-2020 This order has been auto-finalized and does not contain a result. [facility] Lower GI hemoglobin IA Ql (S tl) Stool Occult Blood (JULIA) Positive [facility] Work Phone: Vital Signs Date Time Vital Sign Value Performing Clinician Facility 01-16-2025 11:26-0400 Diastolic blood pressure 89 mm[Hg] Dr. Casie Trevizo MD Work Phone: [facility] 01-16-2025 11:26-0400 Systolic blood pressure 102 mm[Hg] Dr. Casie Trevizo MD Work Phone: [facility] 01-16-2025 11:04-0400 Body height 154.[address] Casie Trevizo MD Work Phone: [facility] 01-16-2025 11:04-0400 Body mass index (BMI) [Ratio] 17.9 kg/m2 Dr. Casie Trevizo MD Work Phone: [facility] 01-16-2025 11:04-0400 Body temperature 97.2 [degF] Dr. Casie Trevizo MD Work Phone: [facility] 01-16-2025 11:04-0400 Body weight 43.[address] Casie Trevizo MD Work Phone: [facility] 01-16-2025 11:04-0400 Heart rate 64 /min Dr. Casie Trevizo MD Work Phone: [phone] [place] [address] 01-16-2025 11:04-0400 Respiratory rate 16 /min Dr. Casie Trevizo MD Work Phone: [phone] [place] [address] 01-16-2025 11:04-0400 SaO2% (BldA) [Mass fraction] 100 % Dr. Casie Trevizo MD Work Phone: [phone] [place] [address] 10-12-2024 10:53-0400 Body mass index (BMI) [Ratio] 16.9 kg/m2 Dr. Casie Trevizo MD Work Phone: [phone] [place] [address] 10-12-2024 10:53-0400 Body temperature 97.6 [degF] Dr. Casie Trevizo MD Work Phone: [phone] [place] [address] 10-12-2024 10:53-0400 Diastolic blood pressure 86 mm[Hg] Dr. Casie Trevizo MD Work Phone: 5([phone])[phone] [place] [address] 10-12-2024 10:53-0400 Heart rate 74 /min Dr. Casie Trevizo MD Work Phone: [phone])096-709680 [place] [address] 10-12-2024 10:53-0400 Respiratory rate 18 /min Dr. Casie Trevizo MD Work Phone: [phone])225-381380 [place] [address] 10-12-2024 10:53-0400 Systolic blood pressure 133 mm[Hg] Dr. Casie Trevizo MD Work Phone: 1(565)120-882880 [place] [address] 10-02-2024 00:38-0400 Body weight 40.[address] Casie Trevizo MD Work Phone: [phone])839-751580 [place] [address] 09-28-2024 11:01-0400 Body mass index (BMI) [Ratio] 16.9 kg/m2 Dr. Casie Trevizo MD Work Phone: [phone])[phone] [place] [address] 09-28-2024 11:01-0400 Body temperature 97.4 [degF] Dr. Casie Trevizo MD Work Phone: [phone])293-681480 [place] [address] 09-28-2024 11:01-0400 Diastolic blood pressure 65 mm[Hg] Dr. Casie Trevizo MD Work Phone: [facility] 09-28-2024 11:01-0400 Heart rate 61 /min Dr. Casie Trevizo MD Work Phone: [facility] 09-28-2024 11:01-0400 Respiratory rate 18 /min Dr. Casie Trevizo MD Work Phone: [phone])820-152855 [place] [address] 09-28-2024 11:01-0400 Systolic blood pressure 113 mm[Hg] Dr. Casie Trevizo MD Work Phone: [phone])[phone] [place] [address] 09-01-2024 00:36-0400 Body weight 40.[address] Casie Trevizo MD Work Phone: [phone])004-514080 [place] [address] 08-31-2024 10:34-0400 Body mass index (BMI) [Ratio] 16.9 kg/m2 Dr. Casie rTevizo MD Work Phone: [phone])335-201880 [place] [address] 08-31-2024 10:34-0400 Body temperature 97.8 [degF] Dr. Casie Trevizo MD Work Phone: 1(678)370-914587 [address] 08-31-2024 10:34-0400 Diastolic blood pressure 73 mm[Hg] Dr. Casie Trevizo MD Work Phone: [phone] [place] [address] 08-31-2024 10:34-0400 Heart rate 65 /min Dr. Casie Trevizo MD Work Phone: 3(993)352-829955 [place] [address] 08-31-2024 10:34-0400 Respiratory rate 18 /min Dr. Casie Trevizo MD Work Phone: [phone] [place] [address] 08-31-2024 10:34-0400 Systolic blood pressure 133 mm[Hg] Dr. Casie Trevizo MD Work Phone: [phone] [place] [address] 08-02-2024 00:45-0400 Body weight 40.[address] Casie Trevizo MD Work Phone: 2(414)888-230487 [address] 07-27-2024 08:25-0400 Body mass index (BMI) [Ratio] 16.9 kg/m2 Dr. Casie Trevizo MD Work Phone: [facility] 07-27-2024 08:25-0400 Body temperature 97.6 [degF] Dr. Casie Trevizo MD Work Phone: [facility] 07-27-2024 08:25-0400 Diastolic blood pressure 76 mm[Hg] Dr. Casie Trevizo MD Work Phone: 2(310)474-147687 [address] 07-27-2024 08:25-0400 Heart rate 74 /min Dr. Casie Trevizo MD Work Phone: 6(604)740-748555 [place] [address] 07-27-2024 08:25-0400 Respiratory rate 16 /min Dr. Casie Trevizo MD Work Phone: 0(726)900-741787 [address] 07-27-2024 08:25-0400 Systolic blood pressure 149 mm[Hg] Dr. Casie Trevizo MD Work Phone: 6(068)995-406855 [place] [address] 07-05-2024 14:34-0500 Body height 154.[address] Casie Trevizo MD Work Phone: [facility] 07-05-2024 14:34-0500 Body temperature 98.6 [degF] Dr. Casie Trevizo MD Work Phone: [facility] 07-05-2024 14:34-0500 Diastolic blood pressure 72 mm[Hg] Dr. Casie Trevizo MD Work Phone: 4(131)944-471655 [place] [address] 07-05-2024 14:34-0500 Heart rate 77 /min Dr. Casie Trevizo MD Work Phone: [facility] 07-05-2024 14:34-0500 Respiratory rate 16 /min Dr. Casie Trevizo MD Work Phone: [facility] 07-05-2024 14:34-0500 SaO2% (BldA) [Mass fraction] 94 % Dr. Casie Trevizo MD Work Phone: [facility] 07-05-2024 14:34-0500 Systolic blood pressure 127 mm[Hg] Dr. Casie Trevizo MD Work Phone: [facility] 07-02-2024 01:12-0500 Body weight 40.[address] Casie Trevizo MD Work Phone: 0(034)607-645487 [address] 06-29-2024 08:23-0500 Body mass index (BMI) [Ratio] 16.9 kg/m2 Dr. Casie Trevizo MD Work Phone: 1(936)037-494780 [place] [address] 06-29-2024 08:23-0500 Body temperature 98.1 [degF] Dr. Casie Trevizo MD Work Phone: 6(423)209-518280 [place] [address] 06-29-2024 08:23-0500 Diastolic blood pressure 78 mm[Hg] Dr. Casie Trevizo MD Work Phone: 3(776)576-161880 [place] [address] 06-29-2024 08:23-0500 Heart rate 93 /min Dr. Casie Trevizo MD Work Phone: 0(541)787-264280 [place] [address] 06-29-2024 08:23-0500 Respiratory rate 20 /min Dr. Casie Trevizo MD Work Phone: 8(520)485-330180 [place] [address] 06-29-2024 08:23-0500 Systolic blood pressure 123 mm[Hg] Dr. Casie Trevizo MD Work Phone: 6(805)880-896787 [address] 06-04-2024 01:56-0500 Body weight 40.[address] Casie Trevizo MD Work Phone: 0(847)431-883187 [address] 11-16-2023 13:30-0400 Body weight 42.[address] Casie Trevizo MD Work Phone: 2(109)076-191487 [address] 05-11-2023 11:05-0500 Diastolic blood pressure 64 mm[Hg] Dr. Casie Trevizo Work Phone: 1(198)535-372680 [place] [address] 05-11-2023 11:05-0500 Systolic blood pressure 138 mm[Hg] Dr. Casie Trevizo Work Phone: 3(829)318-460287 [address] 05-11-2023 10:34-0500 Body height 154.[address] Casie Trevizo Work Phone: [facility] 05-11-2023 10:34-0500 Body mass index (BMI) [Ratio] 17.7 kg/m2 Dr. Casie Trevizo Work Phone: [facility] 05-11-2023 10:34-0500 Body temperature 97.1 [degF] Dr. Casie Trevizo Work Phone: [facility] 05-11-2023 10:34-0500 Body weight 42.[address] Casie Trevizo Work Phone: [facility] 05-11-2023 10:34-0500 Heart rate 67 /min Dr. Casie Trevizo Work Phone: [facility] 05-11-2023 10:34-0500 Respiratory rate 16 /min Dr. Casie Trevizo Work Phone: [facility] 05-11-2023 10:34-0500 SaO2% (BldA) [Mass fraction] 98 % Dr. Casie Trevizo Work Phone: [facility] 03-23-2023 10:13-0500 Body temperature 97.8 [degF] Dr. Casie Trevizo Work Phone: [facility] 03-23-2023 10:13-0500 Diastolic blood pressure 64 mm[Hg] Dr. Casie Trevizo Work Phone: [facility] 03-23-2023 10:13-0500 Heart rate 60 /min Dr. Casie Trevizo Work Phone: [facility] 03-23-2023 10:13-0500 Respiratory rate 16 /min Dr. Casie Trevizo Work Phone: [facility] 03-23-2023 10:13-0500 SaO2% (BldA) [Mass fraction] 100 % Dr. Casie Trevizo Work Phone: [facility] 03-23-2023 10:13-0500 Systolic blood pressure 131 mm[Hg] Dr. Casie Trevizo Work Phone: [facility] 03-23-2023 08:58-0500 Body mass index (BMI) [Ratio] 18 kg/m2 Dr. Casie Trevizo Work Phone: [facility] 03-23-2023 08:58-0500 Body weight 43.[address] Casie Trevizo Work Phone: [facility] 11-17-2022 14:21-0400 Diastolic blood pressure 75 mm[Hg] Dr. Casie Trevizo Work Phone: [facility] 11-17-2022 14:21-0400 Heart rate 63 /min Dr. Casie Trevizo Work Phone: [facility] 11-17-2022 14:21-0400 Systolic blood pressure 145 mm[Hg] Dr. Casie Trevizo Work Phone: [facility] 11-17-2022 13:33-0400 Body mass index (BMI) [Ratio] 18.2 kg/m2 Dr. Casie Trevizo Work Phone: [facility] 11-17-2022 13:33-0400 Body temperature 96.9 [degF] Dr. Casie Trevizo Work Phone: [facility] 11-17-2022 13:33-0400 Respiratory rate 16 /min Dr. Casie Trevizo Work Phone: [facility] 11-17-2022 13:33-0400 SaO2% (BldA) [Mass fraction] 100 % Dr. Casie Trevizo Work Phone: [facility] 05-06-2022 10:33-0500 Body height 154.[address] Cara Arce Work Phone: [facility] 05-06-2022 10:33-0500 Body mass index (BMI) [Ratio] 18.2 kg/m2 Dr. Cara Arce Work Phone: [facility] 05-06-2022 10:33-0500 Body temperature 97.4 [degF] Dr. Cara Arce Work Phone: 5(554)925-114315 [place] [address] 05-06-2022 10:33-0500 Body weight 43.[address] Cara Arce Work Phone: 1(902)798-914415 [place] [address] 05-06-2022 10:33-0500 Diastolic blood pressure 64 mm[Hg] Dr. Cara Arce Work Phone: 4(874)769-257015 [place] [address] 05-06-2022 10:33-0500 Heart rate 65 /min Dr. Cara Arce Work Phone: 6(979)463-907515 [place] [address] 05-06-2022 10:33-0500 Respiratory rate 16 /min Dr. Cara Arce Work Phone: 8(435)939-909315 [place] [address] 05-06-2022 10:33-0500 SaO2% (BldA) [Mass fraction] 96 % Dr. Cara Arce Work Phone: 5(229)017-157015 [place] [address] 05-06-2022 10:33-0500 Systolic blood pressure 110 mm[Hg] Dr. Cara Arce Work Phone: 0(267)091-724715 [place] [address] 03-06-2022 09:32-0400 Body temperature 97.6 [degF] Dr. Cara Arce Work Phone: 1(036)568-186415 [place] [address] 03-06-2022 09:32-0400 Diastolic blood pressure 81 mm[Hg] Dr. Cara Arce Work Phone: 4(333)304-580215 [place] [address] 03-06-2022 09:32-0400 Heart rate 77 /min Dr. Cara Arce Work Phone: 8(904)596-130715 [place] [address] 03-06-2022 09:32-0400 Respiratory rate 16 /min Dr. Cara Arec Work Phone: 3(546)415-233615 [place] [address] 03-06-2022 09:32-0400 SaO2% (BldA) [Mass fraction] 100 % Dr. Cara Arce Work Phone: 5(515)291-836315 [place] [address] 03-06-2022 09:32-0400 Systolic blood pressure 128 mm[Hg] Dr. Cara Arce Work Phone: 5(131)749-623315 [place] [address] 03-06-2022 07:48-0400 Body height 154.[address] Cara Arce Work Phone: 3(873)429-324415 [place] [address] Work Phone: 03-06-2022 07:48-0400 Body mass index (BMI) [Ratio] 17.9 kg/m2 Dr. Cara Arce Work Phone: 6(926)187-089844 [address] 03-06-2022 07:48-0400 Body weight 43.[address] Cara Arce Work Phone: 8(318)911-640815 [place] [address] 02-19-2022 11:01-0400 Body height 154.[address] Cara Arce Work Phone: 3(967)566-348644 [address] Work Phone: 02-06-2022 11:29-0400 Body mass index (BMI) [Ratio] 18.5 kg/m2 Dr. Cara Arce Work Phone: 9(225)623-959515 [place] [address] 02-06-2022 11:29-0400 Body temperature 97.7 [degF] Dr. Cara Arce Work Phone: 7(868)621-440015 [place] [address] 02-06-2022 11:29-0400 Body weight 44.[address] Cara Arce Work Phone: 4(014)336-732715 [place] [address] 02-06-2022 11:29-0400 Diastolic blood pressure 74 mm[Hg] Dr. Cara Arce Work Phone: 2(414)926-420015 [place] [address] 02-06-2022 11:29-0400 Heart rate 66 /min Dr. Craa Arce Work Phone: 5(945)705-435615 [place] [address] 02-06-2022 11:29-0400 Respiratory rate 16 /min Dr. Cara Arce Work Phone: 0(524)534-596715 [place] [address] 02-06-2022 11:29-0400 SaO2% (BldA) [Mass fraction] 95 % Dr. Cara Arce Work Phone: 4(968)353-487915 [place] [address] 02-06-2022 11:29-0400 Systolic blood pressure 147 mm[Hg] Dr. Cara Arce Work Phone: 0(298)039-834615 [place] [address] 01-09-2022 15:01-0400 Body mass index (BMI) [Ratio] 18.2 kg/m2 Dr. Cara Arce Work Phone: 3(547)962-295802 [place] [address] Work Phone: 01-09-2022 15:01-0400 Body temperature 97.8 [degF] Dr. Cara Arce Work Phone: [facility] Work Phone: 01-09-2022 15:01-0400 Body weight 43.[address] Cara Arce Work Phone: [facility] Work Phone: 01-09-2022 15:01-0400 Diastolic blood pressure 64 mm[Hg] Dr. Cara Arce Work Phone: [facility] Work Phone: 01-09-2022 15:01-0400 Heart rate 68 /min Dr. Cara Arce Work Phone: [facility] Work Phone: 01-09-2022 15:01-0400 Respiratory rate 15 /min Dr. Cara Arce Work Phone: [facility] Work Phone: 01-09-2022 15:01-0400 SaO2% (BldA) [Mass fraction] 98 % Dr. Cara Arce Work Phone: [facility] Work Phone: 01-09-2022 15:01-0400 Systolic blood pressure 123 mm[Hg] Dr. Cara Arce Work Phone: [facility] Work Phone: 12-27-2021 09:14-0400 Body height 154.[address] Cara Arce Work Phone: [facility] Work Phone: 12-26-2021 19:41-0400 Body temperature 98.2 [degF] [facility] Work Phone: 12-26-2021 19:41-0400 Diastolic blood pressure 84 mm[Hg] [facility] Work Phone: 12-26-2021 19:41-0400 Heart rate 73 /min [facility] Work Phone: 12-26-2021 19:41-0400 Respiratory rate 18 /min [facility] Work Phone: 12-26-2021 19:41-0400 SaO2% (BldA) [Mass fraction] 98 % [facility] Work Phone: 12-26-2021 19:41-0400 Systolic blood pressure 160 mm[Hg] [facility] Work Phone: 12-26-2021 11:34-0400 Body height 154.94 cm [facility] Work Phone: 12-26-2021 11:34-0400 Body mass index (BMI) [Ratio] 17.7 kg/m2 [facility] Work Phone: 12-26-2021 11:34-0400 Body weight 42.63 kg [facility] Work Phone: 12-10-2021 10:23-0400 Body mass index (BMI) [Ratio] 20 kg/m2 [facility] Work Phone: 12-10-2021 10:23-0400 Body temperature 96.8 [degF] [facility] Work Phone: 12-10-2021 10:23-0400 Body weight 46.66 kg [facility] Work Phone: 12-10-2021 10:23-0400 Diastolic blood pressure 57 mm[Hg] [facility] Work Phone: 12-10-2021 10:23-0400 Heart rate 71 /min [facility] Work Phone: 12-10-2021 10:23-0400 Respiratory rate 20 /min [facility] Work Phone: 12-10-2021 10:23-0400 Systolic blood pressure 123 mm[Hg] [facility] Work Phone: 09-17-2021 11:03-0400 Body mass index (BMI) [Ratio] 21.2 kg/m2 [facility] Work Phone: 09-17-2021 11:03-0400 Body temperature 97.4 [degF] [facility] Work Phone: 09-17-2021 11:03-0400 Diastolic blood pressure 51 mm[Hg] [facility] Work Phone: 09-17-2021 11:03-0400 Heart rate 65 /min [facility] Work Phone: 09-17-2021 11:03-0400 Respiratory rate 18 /min [facility] Work Phone: 09-17-2021 11:03-0400 Systolic blood pressure 134 mm[Hg] [facility] Work Phone: 09-01-2021 00:29-0400 Body weight 54.43 kg [facility] Work Phone: 08-27-2021 11:35-0400 Body mass index (BMI) [Ratio] 21.2 kg/m2 [facility] Work Phone: 08-27-2021 11:35-0400 Body temperature 97.5 [degF] [facility] Work Phone: 08-27-2021 11:35-0400 Diastolic blood pressure 71 mm[Hg] [facility] Work Phone: 08-27-2021 11:35-0400 Heart rate 74 /min [facility] Work Phone: 08-27-2021 11:35-0400 Respiratory rate 18 /min [facility] Work Phone: 08-27-2021 11:35-0400 Systolic blood pressure 128 mm[Hg] [facility] Work Phone: 08-02-2021 00:30-0400 Body weight 54.43 kg [facility] Work Phone: 07-30-2021 11:14-0400 Body mass index (BMI) [Ratio] 21.2 kg/m2 [facility] Work Phone: 07-30-2021 11:14-0400 Body temperature 97.5 [degF] [facility] Work Phone: 07-30-2021 11:14-0400 Diastolic blood pressure 63 mm[Hg] [facility] Work Phone: 07-30-2021 11:14-0400 Heart rate 72 /min [facility] Work Phone: 07-30-2021 11:14-0400 Respiratory rate 18 /min [facility] Work Phone: 07-30-2021 11:14-0400 Systolic blood pressure 122 mm[Hg] [facility] Work Phone: 07-02-2021 00:28-0500 Body weight 54.43 kg [facility] Work Phone: 07-01-2021 23:28-0500 Body weight 54.43 kg [facility] Work Phone: 06-25-2021 10:24-0500 Body mass index (BMI) [Ratio] 21.2 kg/m2 [facility] Work Phone: 06-25-2021 10:24-0500 Body temperature 97.6 [degF] [facility] Work Phone: 06-25-2021 10:24-0500 Diastolic blood pressure 54 mm[Hg] [facility] Work Phone: 06-25-2021 10:24-0500 Heart rate 70 /min [facility] Work Phone: 06-25-2021 10:24-0500 Respiratory rate 20 /min [facility] Work Phone: 06-25-2021 10:24-0500 Systolic blood pressure 121 mm[Hg] [facility] Work Phone: 06-24-2021 13:42-0500 Body temperature 98 [degF] [facility] Work Phone: 06-24-2021 13:42-0500 Diastolic blood pressure 58 mm[Hg] [facility] Work Phone: 06-24-2021 13:42-0500 Heart rate 56 /min [facility] Work Phone: 06-24-2021 13:42-0500 Respiratory rate 16 /min [facility] Work Phone: 06-24-2021 13:42-0500 SaO2% (BldA) [Mass fraction] 99 % [facility] Work Phone: 06-24-2021 13:42-0500 Systolic blood pressure 114 mm[Hg] [facility] Work Phone: 06-24-2021 10:17-0500 Body height 152.4 cm [facility] Work Phone: 06-24-2021 10:17-0500 Body mass index (BMI) [Ratio] 20.2 kg/m2 [facility] Work Phone: 06-24-2021 10:17-0500 Body weight 47.17 kg [facility] Work Phone: 06-03-2021 23:33-0500 Body weight 54.43 kg [facility] Work Phone: 05-28-2021 10:08-0500 Body mass index (BMI) [Ratio] 21.2 kg/m2 [facility] Work Phone: 05-28-2021 10:08-0500 Body temperature 97.5 [degF] [facility] Work Phone: 05-28-2021 10:08-0500 Diastolic blood pressure 54 mm[Hg] [facility] Work Phone: 05-28-2021 10:08-0500 Heart rate 64 /min [facility] Work Phone: 05-28-2021 10:08-0500 Respiratory rate 16 /min [facility] Work Phone: 05-28-2021 10:08-0500 Systolic blood pressure 90 mm[Hg] [facility] Work Phone: 05-03-2021 23:26-0500 Body weight 54.43 kg [facility] Work Phone: 04-30-2021 10:00-0500 Body mass index (BMI) [Ratio] 21.2 kg/m2 [facility] Work Phone: 04-30-2021 10:00-0500 Body temperature 97.3 [degF] [facility] Work Phone: 04-30-2021 10:00-0500 Diastolic blood pressure 40 mm[Hg] [facility] Work Phone: 04-30-2021 10:00-0500 Heart rate 64 /min [facility] Work Phone: 04-30-2021 10:00-0500 Respiratory rate 16 /min [facility] Work Phone: 04-30-2021 10:00-0500 Systolic blood pressure 134 mm[Hg] [facility] Work Phone: 04-02-2021 23:27-0500 Body weight 54.43 kg [facility] Work Phone: 10-04-2020 13:15-0400 Body height 160 cm [facility] 10-04-2020 13:15-0400 Body mass index (BMI) [Ratio] 19.54 kg/m2 [facility] 10-04-2020 13:15-0400 Body weight 50.03 kg [facility] 10-04-2020 13:15-0400 Diastolic blood pressure 69 mm[Hg] [facility] 10-04-2020 13:15-0400 Heart rate 69 /min [facility] 10-04-2020 13:15-0400 Systolic blood pressure 147 mm[Hg] [facility] 09-10-2020 11:02-0400 Body height 160 cm [facility] 09-10-2020 11:02-0400 Body mass index (BMI) [Ratio] 19.89 kg/m2 [facility] 09-10-2020 11:02-0400 Body weight 50.94 kg [facility] 09-10-2020 11:02-0400 Diastolic blood pressure 74 mm[Hg] [facility] 09-10-2020 11:02-0400 Heart rate 62 /min [facility] 09-10-2020 11:02-0400 Systolic blood pressure 129 mm[Hg] [facility] 03-16-2020 14:10-0500 Body Temperature 97.1 [degF] Maryanne Valencia [facility] Work Phone: Comment on above: Method: Infrared aprox weight 03-16-2020 14:10-0500 Body weight 63.5 kg Maryannesusana Valencia [facility] Work Phone: Comment on above: aprox weight 03-16-2020 14:10-0500 BP Diastolic 80 mm[Hg] [facility] Work Phone: Comment on above: Patient Position: Sitting; Cuff Location : Left Arm; Cuff Size: Standard aprox weight 03-16-2020 14:10-0500 BP Systolic 122 mm[Hg] [facility] Work Phone: Comment on above: Patient Position: Sitting; Cuff Location : Left Arm; Cuff Size: Standard aprox weight 03-16-2020 14:10-0500 Pulse (Heart Rate) 66 /min Maryannesusana Valencia [facility] Work Phone: Comment on above: Pattern: Regular aprox weight 03-16-2020 14:10-0500 Pulse Oximetry 98 % Maryannephilip Valencia [facility] Work Phone: Comment on above: Room air aprox weight 03-16-2020 14:10-0500 Respiratory Rate 16 /min [facility] Work Phone: Comment on above: Pattern: Unlabored aprox weight Encounters Encounter Date Encounter Type Care Provider Facility Start: 01-16-2025 End: 01-16-2025 Admission to same day surgery center Dr. Star Corona MD -[facility] Start: 01-16-2025 End: 01-16-[address] Casie Trevizo MD Work Phone: [facility] Start: 12-27-2024 End: 12-27-[address] Casie Trevizo MD Work Phone: -[facility] [place] Start: 12-27-2024 End: 12-27-[address] Ye Hoffman MD -[facility] [place] Work Phone: Start: 12-27-2024 End: 12-27-2024 ambulatory Ye Hoffman Facility:[facility] Start: 11-11-2024 ambulatory Casie Trevizo Facility: [facility] Start: 10-12-2024 Non-patient / Non-visit Evelyn Robertson DATA SECURITY CONSULTANT-C -AH[facility] Start: 10-12-2024 End: 10-31-[address] Casie Trevizo MD Work Phone: [facility] Start: 10-12-2024 End: 10-31-2024 Discharged Recurring Evelyn Robertson DATA SECURITY CONSULTANT-C -[facility] Work Phone: Start: 10-05-2024 Non-patient / Non-visit Evelyn Robertson DATA SECURITY CONSULTANT-C -[facility] Start: 09-28-2024 Non-patient / Non-visit Evelyn Roberston DATA SECURITY CONSULTANT-C -AH[facility] Start: 09-28-2024 Evelyn Robertson DATA SECURITY CONSULTANT-C -A HF [facility] Start: 09-28-2024 End: 10-01-[address] Casie Trevizo MD Work Phone: [facility] Work Phone: Start: 09-28-2024 End: 10-01-2024 Discharged Recurring Evelyn Robertson DATA SECURITY CONSULTANT-C -[facility] Work Phone: Start: 09-28-2024 End: 10-01-2024 Evelyn Robertson DATA SECURITY CONSULTANT-C [facility] Work Phone: Start: 09-21-2024 Non-patient / Non-visit Evelyn Robertson DATA SECURITY CONSULTANT-C -AH[facility] Start: 09-21-2024 Evelyn Robertson DATA SECURITY CONSULTANT-C -A HF [facility] Start: 09-14-2024 Non-patient / Non-visit Evelyn Robertson DATA SECURITY CONSULTANT-C -AHF [facility] Start: 09-14-2024 Evelyn Robertson DATA SECURITY CONSULTANT-C -A HF [facility] Start: 09-07-2024 Non-patient / Non-visit Evelyn Robertson DATA SECURITY CONSULTANT-C -AHF [facility] Start: 09-07-2024 Evelyn Robertson DATA SECURITY CONSULTANT-C -A HF [facility] Start: 08-31-2024 Non-patient / Non-visit Evelyn Robertson DATA SECURITY CONSULTANT-C -AHF H Start: 08-31-2024 Evelyn Robertson DATA SECURITY CONSULTANT-C -A HF [facility] Start: 08-31-2024 End: 08-31-2024 ambulatory [facility] Facility:[facility] Start: 08-31-2024 End: 08-31-2024 Discharged Recurring Evelyn Robertson DATA SECURITY CONSULTANT-C -[facility] Work Phone: Start: 08-31-2024 End: 08-31-2024 Evelyn Robertson DATA SECURITY CONSULTANT-C -[facility] Work Phone: Start: 08-24-2024 Non-patient / Non-visit Evelyn Robertson DATA SECURITY CONSULTANT-C -AH[facility] Start: 08-24-2024 Evelyn Robertson DATA SECURITY CONSULTANT-C -A HF [facility] Start: 08-17-2024 Non-patient / Non-visit Evelyn Robertson DATA SECURITY CONSULTANT-C -AHF [facility] Start: 08-17-2024 Evelyn Robertson DATA SECURITY CONSULTANT-C -A [facility] Start: 08-10-2024 Non-patient / Non-visit Evelyn Robertson DATA SECURITY CONSULTANT-C -AHF [facility] Start: 08-10-2024 Evelynasim Robertson DATA SECURITY CONSULTANT-C -A HF [facility] Start: 08-03-2024 Non-patient / Non-visit Evelyn Robertson DATA SECURITY CONSULTANT-C -AHF [facility] Start: 08-03-2024 Evelyn Marcelo DATA SECURITY CONSULTANT-C -A HF [facility] Start: 07-27-2024 Non-patient / Non-visit Evelyn Robertson DATA SECURITY CONSULTANT-C -AH[facility] Start: 07-27-2024 Evelyn Robertson DATA SECURITY CONSULTANT-C -A HF [facility] Start: 07-27-2024 End: 08-01-2024 ambulatory Casie S Jolliff Facility:[facility] Start: 07-27-2024 End: 08-01-2024 Discharged Recurring Evelyn Robertson DATA SECURITY CONSULTANT-C -[facility] Work Phone: Start: 07-27-2024 End: 08-01-2024 Evelynasim BearRobertson DATA SECURITY CONSULTANT-C -[facility] Work Phone: Start: 07-21-2024 ambulatory Casie S Jolliff Facility: [facility] Start: 07-21-2024 Registered Referred Sukumar CalderónGasper Winkler Start: 07-21-2024 Sukumar Calderón Gasper Winkler Start: 07-20-2024 End: 07-20-2024 ambulatory Casie S Jolliff Facility:[facility] Start: 07-20-2024 End: 07-20-2024 Patient encounter procedure Ally Duron DATA SECURITY CONSULTANT-C -[facility] Work Phone: Start: 07-20-2024 End: 07-20-2024 Ally Duron DATA SECURITY CONSULTANT-C -[facility] Work Phone: Start: 07-18-2024 ambulatory Aiden Bartholomew Facility:[facility] Start: 07-18-2024 Non-patient / Non-visit Dr. Aiden Bartholomew MD -[facility] Start: 07-18-2024 Dr. Aiden Bartholomew MD -[facility] Start: 07-14-2024 ambulatory Casie S Jolliff Facility: [facility] Start: 07-14-2024 Registered Referred Sukumar Winkler Start: 07-14-2024 Sukumar Calderón Gasper Winkler Start: 07-13-2024 Non-patient / Non-visit Evelyn Robertson DATA SECURITY CONSULTANT-C -AHF [facility] Start: 07-13-2024 Evelyn Robertson DATA SECURITY CONSULTANT-C -A [facility] Start: 07-12-2024 End: 07-12-[address] Casie Trevizo MD -Outpatient [facility] D[facility] Work Phone: Start: 07-12-2024 End: 07-12-2024 Dr. Casie Trevizo MD -Outpatient Bone Densitometry Work Phone: Start: 07-12-2024 End: 07-12-2024 ambulatory Casie Trevizo Facility:[facility] Start: 07-07-2024 ambulatory Casie Trevizo Facility: [facility] Start: 07-07-2024 Registered Referred Sukumar Velazquez MD [facility] Start: 07-07-2024 Sukumar Velazquez MD [facility] Gasper Peterson Start: 07-06-2024 Non-patient / Non-visit Dr. Juan Carlos Barrow MD -[facility] Start: 07-06-2024 Dr. Juan Carlos Barrow MD -[facility] Start: 07-05-[address] Blanca Orlando MD -[facility] Start: 07-05-2024 End: 07-05-[address] Fransisca Orlando MD -[facility] Work Phone: Start: 07-05-2024 End: 07-05-2024 Dr. Fransisca Orlando MD -[facility] Work Phone: Start: 07-05-2024 End: 07-05-2024 ambulatory Casie Trevizo Facility:[facility] Start: 06-30-2024 ambulatory Casie Trevizo Facility: [facility] Start: 06-30-2024 Sukumar Velazquez MD [facility] L Peterson Start: 06-29-2024 Evelyn Robertson DATA SECURITY CONSULTANT-C -[facility] Start: 06-29-2024 End: 07-01-2024 ambulatory Evelyn Robertson NP Facility:[facility] Start: 06-29-2024 End: 07-01-2024 Evelyn Robertson [facility] Work Phone: Start: 06-23-2024 ambulatory Casie S Jolliff Facility: [facility] Start: 06-23-2024 Sukumar Calderón L - [facility] Start: 06-22-2024 Evelyn Robertson NP-C -[facility] Start: 06-16-2024 ambulatory Efewongbe Veee OLS Fa cility:[facility] Start: 06-16-2024 Sukumar Calderón L [place] Start: 06-15-2024 ambulatory Casie S Jolliff Facility: [facility] Start: 06-15-2024 Brooke COLLINS -[facility] Start: 06-14-2024 End: 06-14-2024 ambulatory Casie S Jolliff Facility:[facility] Start: 06-14-2024 End: 06-14-2024 Dr. Sukumar Velazquez MD -[facility] Work Phone: Start: 06-09-2024 ambulatory Efewongbe Oleghe OLS Fa cility:[facility] Start: 06-09-2024 Sukumar Calderón L - [place] Start: 06-08-2024 Evelyn Robertson NP-C -[facility] Start: 06-02-2024 ambulatory Efewongbe Oleghe OLS Fa cility:[facility] Start: 06-01-2024 End: 06-03-2024 ambulatory Casie S Jolliff Facility:[facility] Start: 05-26-2024 ambulatory Efewongbe Oleghe OLS Fa cility:[facility] Start: 05-19-2024 ambulatory Efewongbe Oleghe OLS Fa cility:[facility] Start: 05-12-2024 ambulatory Efewongbe Oleghe OLS Fa cility:[facility] Start: 05-09-2024 End: 05-09-2024 Telephone encounter Jim Torres MD Work Phone: [facility] [place] [facility] Comment on above: [employer] Start: 05-05-2024 End: 05-05-2024 Telephone encounter Jim Torres MD Work Phone: [facility] [place] [facility] Comment on above: Results Start: 05-05-2024 End: 05-05-2024 ambulatory Christopher Wells [facility]ious Disease Comment on above: [employer] Start: 05-03-2024 End: 05-03-2024 ambulatory Casie S Jolliff Facility:[facility] Start: 04-28-2024 ambulatory Seraongbe Veee OLS Fa cility:[facility] Start: 04-26-2024 End: 04-26-2024 ambulatory Efewongbe Oleghe Facility:[facility] Start: 04-25-2024 End: 04-25-2024 ambulatory Casie S Jolliff Facility:[facility] Start: 04-20-2024 End: 04-20-2024 ambulatory Jim Torres MD Work Phone: [place] [facility] Comment on above: [employer] Start Start: 04-13-2024 End: 04-22-2024 Evaluation and management of inpatient GUSTABO SALDIVAR Facility:[facility] Start: 04-13-2024 End: 04-13-2024 Emergency department patient visit Nathen Ontiveros Facility:[facility] Start: 04-08-2024 ambulatory Seraongsoumya Baxtere OLS Fa cility:[facility] Start: 04-07-2024 ambulatory Casie S Jolliff Facility: [facility] Start: 04-06-2024 End: 04-06-2024 ambulatory Casie S Jolliff Facility:[facility] Start: 04-03-2024 End: 04-03-2024 ambulatory Dannie Parr Facility:[facility] Start: 03-31-2024 ambulatory Casie S Jolliff Facility: [facility] Start: 03-31-2024 End: 04-05-2024 Evaluation and management of inpatient Casie S Jolliff Facility:[facility] Start: 03-30-2024 End: 04-02-2024 ambulatory Casie S Jolliff Facility:[facility] Start: 03-30-2024 End: 03-30-2024 ambulatory Casie S Jolliff Facility:[facility] Start: 03-10-2024 ambulatory Casie S Jolliff Facility: [facility] Start: 03-03-2024 ambulatory Casie Trevizo Facility: [facility] Start: 03-03-2024 End: 03-03-2024 ambulatory Casie Trevizo Facility:[facility] Start: 06-17-2023 End: 06-17-[address] Casie Trevizo Work Phone: [facility] Work Phone: Start: 06-17-2023 End: 06-17-[address] Casie Trevizo Work Phone: [facility]-Radiology, [facility] Work Phone: Start: 05-29-2023 End: 05-29-[address] Casie Trevizo Work Phone: [facility]-Outpatient Breast Imaging Work Phone: Start: 05-11-[address] Casie navarrete Work Phone: [facility] Start: 05-11-2023 End: 05-11-[address] Casie Trevizo Work Phone: [facility] Work Phone: Start: 03-23-2023 End: 03-23-2023 Admission to same day surgery center Dr. Casie Trevizo Work Phone: [facility]-Surgical Day Care Start: 08-11-[address] Casie Trevizo Work Phone: [facility]-Laboratory Start: 08-06-2022 End: 08-06-[address] Casie Trevizo Work Phone: [facility] Work Phone: Start: 08-06-2022 End: 08-06-[address] Casie Trevizo Work Phone: [facility]-Laboratory Start: 06-06-2022 End: 06-06-[address] Casie Trevizo Work Phone: [facility] Start: 06-04-2022 End: 06-04-[address] Casie Trevizo Work Phone: [facility]-Laboratory Start: 05-23-2022 End: 05-23-[address] Cara Arce Work Phone: [facility] Work Phone: Start: 05-23-2022 End: 05-23-[address] Cara Arce Work Phone: [facility]-Outpatient Breast Imaging Start: 05-06-2022 End: 05-06-[address] Cara Arce Work Phone: [facility] Start: 05-06-[address] Cara Arce Work Phone: [facility] Start: 03-13-2022 End: 03-13-[address] Cara Arce Work Phone: [facility] Start: 03-06-2022 Non-patient / Non-visit Dr. Cara Arce Work Phone: [facility] Start: 03-06-2022 End: 03-06-2022 Admission to same day surgery center Dr. Cara Arce Work Phone: [facility]-Endoscopy Start: 03-06-2022 End: 03-06-[address] Cara Arce Work Phone: [facility] Work Phone: Start: 02-19-2022 End: 02-19-[address] Cara Arce Work Phone: [facility] Work Phone: Start: 02-19-2022 End: 02-19-[address] Cara Arce Work Phone: [facility]-Outpatient Bone Densitometry Start: 02-06-2022 End: 02-06-[address] Cara Arce Work Phone: [facility] Start: 02-06-[address] Cara Arce Work Phone: [facility] Start: 01-09-2022 End: 01-09-[address] Cara Arce Work Phone: [facility] Start: 01-03-2022 End: 01-03-[address] Cara Arce Work Phone: [facility] Work Phone: Start: 01-03-2022 End: 01-03-[address] Cara Arce Work Phone: [facility] Start: 12-27-2021 End: 12-27-[address] Cara Arce Work Phone: [facility] Work Phone: Start: 12-27-2021 End: 12-27-[address] Cara Arce Work Phone: [facility]-Laboratory Start: 12-26-2021 End: 12-26-2021 Emergency department patient visit [facility]-Emergency Department Start: 12-26-2021 End: 12-26-[address] Cara Arce Work Phone: [facility] Work Phone: Start: 12-26-2021 End: 12-26-2021 Patient encounter procedure [facility] Start: 12-10-2021 End: 01-01-[address] Cara Arce Work Phone: [facility] Work Phone: Start: 12-10-2021 End: 01-01-[address] [facility]Cra [facility] Start: 12-10-2021 [facility] Start: 10-25-2021 End: 10-25-2021 [facility] Start: 10-01-2021 End: 10-01-2021 [facility] Start: 08-27-2021 End: 08-31-2021 Discharged Recurring [facility] Start: 07-30-2021 End: 08-01-2021 Discharged Recurring [facility] Start: 06-25-2021 End: 07-01-2021 [facility] Start: 06-24-2021 End: 06-24-2021 [facility] Start: 05-28-2021 End: 06-03-2021 [facility] Start: 05-21-2021 End: 05-21-2021 Patient encounter procedure [facility]-Outpatient Breast Imaging Start: 05-15-2021 End: 05-15-2021 Patient encounter procedure [facility]-MRI - [facility] Start: 05-14-2021 End: 05-14-2021 Patient encounter procedure [facility]-Radiology, [place] Start: 04-30-2021 End: 05-03-2021 [facility] Start: 04-08-2021 End: 04-08-2021 ambulatory [facility] Start: 01-23-2021 Jamshid Ramires CMA [facility] Comment on above: Neuropathic pain (Pr imary Dx) Start: 10-04-2020 End: 10-08-2020 ambulatory [facility] Start: 10-04-2020 End: 10-08-2020 [facility] Start: 10-04-2020 End: 10-04-2020 Office outpatient visit 25 minutes Analilia Oconnor DO [facility] Comment on above: Transverse myelitis (HCC) (Primary Dx); Neuropathic pain; Vitamin D deficiency; Other specified disorders involving the immune mechanism, 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) Start: 10-04-2020 End: 10-05-2020 ambulatory CARA F KIRAN [facility] Start: 10-04-2020 End: 10-04-2020 Subsequent hospital visit by physician Gi Frances MD Work Phone: [facility] MRI Comment on above: Arrived Start: 09-10-2020 End: 09-11-2020 ambulatory PROVIDER NOT IN [facility] Start: 09-10-2020 End: 09-10-2020 Subsequent hospital visit by physician Provider Not In [facility] External Films Comment on above: Arrived Start: 09-10-2020 End: 09-10-2020 Office outpatient new 60 minutes Cara Thompsonp DO Work Phone: [facility] Comment on above: Transverse myelitis (HCC) (Primary Dx); Neuropathic pain; Vitamin D deficiency Start: 07-06-2020 End: 07-06-2020 Transcribe Orders Cara Thompsonp Work Phone: [facility] Comment on above: Transverse myelitis (HCC) (Primary Dx); Paraplegia (HCC) Start: 03-16-2020 End: 03-16-2020 Office outpatient new 30 minutes Maryanne Valencia [facility] Procedures Date Procedure Procedure Detail Performing Clinician Start: 01-16-[address] Jasen Trevizo MD Work Phone: Start: 12-27-2024 Total iron binding c apacity measurement Dr. Casie Trevizo MD Work Phone: Start: 07-21-2024 Blood count smear rscp w/mnl difrntl wbc count Dr. Casie Trevizo MD Work Phone: Start: 07-21-2024 Mean corpuscular hem oglobin concentration determination Dr. Casie Trevizo MD Work Phone: Start: 07-21-2024 Nucleated red blood cell count procedure Dr. Casie Trevizo MD Work Phone: Start: 07-21-2024 Platelet mean volume determination Dr. Casie Trevizo MD Work Phone: Start: 07-14-2024 Blood count smear mc rscp w/mnl difrntl wbc count Dr. Casie Trevizo MD Work Phone: Start: 07-14-2024 Mean corpuscular hem oglobin concentration determination Dr. Casie Trevizo MD Work Phone: Start: 07-14-2024 Nucleated red blood cell count procedure Dr. Casie Trevizo MD Work Phone: Start: 07-14-2024 Platelet mean volume determination Dr. Casie Trevizo MD Work Phone: Start: 07-12-2024 Screening mammography D nora Trevizo MD Work Phone: Start: 07-12-2024 Dual energy X-ray absorptiometry Dr. Casie Trevizo MD Work Phone: Start: 07-07-2024 Blood count smear mc rscp w/mnl difrntl wbc count Dr. Casie Trevizo MD Work Phone: Start: 07-07-2024 Mean corpuscular hem oglobin concentration determination Dr. Casie Trevizo MD Work Phone: Start: 07-07-2024 Nucleated red blood cell count procedure Dr. Casie Trevizo MD Work Phone: Start: 07-07-2024 Platelet mean volume determination Dr. Casie Trevizo MD Work Phone: Start: 07-05-2024 Blood count smear mc rscp w/mnl difrntl wbc count Dr. Casie Trevizo MD Work Phone: Start: 07-05-[address] e fraction Dr. Casie Trevizo MD Work Phone: Start: 07-05-2024 Mean corpuscular hem oglobin concentration determination Dr. Casie Trevizo MD Work Phone: Start: 07-05-2024 Nucleated red blood cell count procedure Dr. Casie Trevizo MD Work Phone: Start: 07-05-2024 Platelet mean volume determination Dr. Casie Trevizo MD Work Phone: Start: 07-05-2024 Total iron binding c apacity measurement Dr. Casie Trevizo MD Work Phone: Start: 06-30-2024 Blood count smear mc rscp w/mnl difrntl wbc count Dr. Casie Trevizo MD Work Phone: Start: 06-30-2024 Mean corpuscular hem oglobin concentration determination Dr. Casie Trevizo MD Work Phone: Start: 06-30-2024 Nucleated red blood cell count procedure Dr. Casie Trevizo MD Work Phone: Start: 06-30-2024 Platelet mean volume determination Dr. Casie Trevizo MD Work Phone: Start: 06-23-2024 Anion gap measurement Vee Trevizo MD Work Phone: Start: 06-23-2024 Blood count smear rscp w/mnl difrntl wbc count Dr. Casie Trevizo MD Work Phone: Start: 06-23-2024 BUN/Creatinine ratio Dr Sadia Trevizo MD Work Phone: Start: 06-23-2024 Mean corpuscular hem oglobin concentration determination Dr. Casie Trevizo MD Work Phone: Start: 06-23-2024 Measurement of renal function Dr. Casie Trevizo MD Work Phone: Start: 06-23-2024 Nucleated red blood cell count procedure Dr. Casie Trevizo MD Work Phone: Start: 06-23-2024 Platelet mean volume determination Dr. Casie Trevizo MD Work Phone: Start: 06-22-[address] Casie Trevizo MD Work Phone: Start: 06-22-2024 Gram stain microscopy Vee Trevizo MD Work Phone: Start: 06-22-2024 End: 06-22-2024 Microbial culture, routine Dr. Casie lanier MD Work Phone: Start: 06-16-2024 Anion gap measurement D nora Trevizo MD Work Phone: Start: 06-16-2024 Blood count smear rscp w/mnl difrntl wbc count Dr. Casie Trevizo MD Work Phone: Start: 06-16-2024 BUN/Creatinine ratio Dr Sadia Trevizo MD Work Phone: Start: 06-16-2024 Mean corpuscular hem oglobin concentration determination Dr. Casie Trevizo MD Work Phone: Start: 06-16-2024 Measurement of renal function Dr. Casie Trevizo MD Work Phone: Start: 06-16-2024 Nucleated red blood cell count procedure Dr. Casie Trevizo MD Work Phone: Start: 06-16-2024 Platelet mean volume determination Dr. Casie Trevizo MD Work Phone: Start: 06-09-2024 Anion gap measurement D nora Trevizo MD Work Phone: Start: 06-09-2024 Blood count smear rscp w/mnl difrntl wbc count Dr. Casie Trevizo MD Work Phone: Start: 06-09-2024 BUN/Creatinine ratio Dr Sadia Trevizo MD Work Phone: Start: 06-09-2024 Mean corpuscular hem oglobin concentration determination Dr. Casie Trevizo MD Work Phone: Start: 06-09-2024 Measurement of renal function Dr. Casie Trevizo MD Work Phone: Start: 06-09-2024 Nucleated red blood cell count procedure Dr. Casie Trevizo MD Work Phone: Start: 06-09-2024 Platelet mean volume determination Dr. Casie Trevizo MD Work Phone: Start: 05-05-2024 CBCDIF (EXTERNAL) Jim Torres MD Work Phone: Start: 05-05-2024 Creatinine [Mass/vol ume] in Serum or Plasma Jim Torres MD Work Phone: Start: 04-14-2024 Lipid 1996 panel - S lucio or Plasma Jim Torres MD Work Phone: Start: 11-16-[address] Casie Trevizo MD Work Phone: Start: 06-17-2023 End: 06-17-2023 [address] examination of knee [address] Casie Trevizo Work Phone: Start: 05-29-2023 Screening mammography Vee Trevizo Work Phone: Start: 03-23-2023 Complete x-ray serie s of lumbar spine with bending views Dr. Casie Trevizo Work Phone: Start: 03-23-2023 Injection of facet joint Dr. Casie Trevizo Work Phone: Start: 03-23-2023 Injection of spinal epidural space Dr. Casie Trevizo Work Phone: Start: 05-23-2022 Screening mammography Vee Arce Work Phone: Start: 03-06-[address] Cara minaya Work Phone: Start: 02-19-2022 Dual energy X-ray absorptiometry Dr. Cara Arce Work Phone: Start: 01-03-2022 Computed tomography of abdomen and pelvis with contrast Dr. Cara Arce Work Phone: Start: 06-24-2021 O.R. Fluoro for C-Arm Start: 06-24-2021 X-ray of lumbar spin e, two or three views Start: 05-21-2021 Screening mammography Start: 05-15-2021 MRI of lower limb wi th contrast Start: 05-14-2021 Plain x-ray of pelvi s and lower extremity Start: 04-30-2021 Anaerobic microbial culture Start: 04-30-2021 Investigation of transfusion reaction Start: 04-30-2021 Microbial culture, routine Start: 10-04-2020 Mri spinal canal cer vical w/o & w/contr matrl Analilia Oconnor DO Start: 09-10-2020 Computerized tomogra phy, limited studies External Transcribed Start: 09-10-2020 Magnetic resonance imaging External Transcribed Start: 09-10-2020 Radiographic imaging procedure External Transcribed Start: 09-13-2018 Mammography Provider S ystem Start: 09-24-2017 Mammography Gi Frances MD Work Phone: Start: 06-13-2013 Colonoscopy Jim Baxter Work Phone: Bacteria identified in Urine by Culture Dr. Casie Trevizo Work Phone: Measurement of occul t blood in stool specimen using immunoassay Urine culture Dr. Casie davidson Work Phone: Plan of Treatment Date Care Activity Detail Author Start: 11-30-2033 Urine microalbumin profile DTaP,Tdap,Td Vaccine (2 - Td or Tdap) [facility] Start: 04-14-2029 Lipid panel Lipid Screening [facility] Start: 04-17-2027 Diabetes Screening Diabetes Screening [facility] Start: 04-14-2025 Hepatitis B surface antibody level LDL Cholesterol [facility] Start: 01-16-2025 Fluoroscopic guidance [facility] Start: 01-16-2025 Patient discharge [facility] Start: 05-04-2024 Advance Directive Discussion Advance Directive Discussion [facility] Start: 01-03-2024 Covid-19 Vaccine ( season) Covid-19 Vaccine () [facility] Start: 01-03-2024 Influenza vaccination Influ[facility] (#[facility] Start: 05-04-2023 Advance Directive Discussion Advance Directive Discussion [facility] Start: 03-23-2023 Anes dx/ther nerve block/injection prone pos ANESTH N BLOCK/INJ PRONE [facility] Start: 03-23-2023 Njx dx/ther agt pvrt facet jt lmbr/sac 1 level INJ PARAVERT F JNT L/S 1 [facility] Start: 03-23-2023 Njx dx/ther agt pvrt facet jt lmbr/sac 2nd level INJ PARAVERT F JNT L/S 2 [facility] Start: 03-23-2023 Patient discharge [facility] Start: 03-06-2022 Colonoscopy w/biopsy single/multiple COLONOSCOPY AND BIOPSY [facility] Start: 03-06-2022 Colsc flexible w/control bleeding any method COLONOSCOPY W/CONTROL BLEED [facility] Start: 03-06-2022 Patient discharge [facility] Start: 12-27-2021 Celiac disease screen [facility] Work Phone: Start: 12-27-2021 IgE [Units/volume] in Serum or Plasma [facility] Work Phone: Start: 12-27-2021 Serum immunofixation [facility] Work Phone: Start: 12-27-2021 [facility] Work Phone: Start: 12-27-2021 Patient referral [facility] Work Phone: Start: 12-26-2021 Administration of blood product [facility] Work Phone: Start: 06-24-2021 Anesthesia lumbar region nos ANESTH SPINE CORD SURGERY [facility] Work Phone: Start: 06-24-2021 Insj/rplcmt spi npgr dir/induxive coupling INSRT/REDO SPINE N GENERATOR [facility] Work Phone: Start: 06-24-2021 Calzada impltj nstim eltrds plate/paddle edrl IMPLANT NEUROELECTRODES [facility] Work Phone: Start: 04-08-2021 End: 04-08-2021 Patient encounter procedure [facility] Start: 01-26-2021 COVID-19 Vaccine (3 - Booster for Pfizer series) COVID-19 Vaccine (3 - Booster for Pfizer series) [facility] Start: 01-02-2021 Influenza vaccination Sequential Influenza Vaccine (#1) [facility] Start: 10-11-2020 End: 09-10-2021 MRI of cervical spine MR Cervical Spine With And Without Contrast Imaging Routine Transverse myelitis (HCC) Expected: 10/11/2020, Expires: 09/10/2021 [facility] Comment on above: Expected: 10/11/2020, Expires: 2 Start: 10-11-2020 End: 09-10-2021 MRI of thoracic spine MR Thoracic Spine With And Without Contrast Imaging Routine Transverse myelitis (HCC) Expected: 10/11/2020, Expires: 09/10/2021 [facility] Comment on above: Expected: 10/11/2020, Expires: 2 Start: 10-04-2020 End: 10-04-2020 Patient encounter procedure 10/04/2020 Office Visit Neurology Elvin, Analilia Andrade, [facility] Start: 10-04-2020 End: 10-04-2020 Patient encounter procedure 10/04/2020 Appointment Radiology Gi Frances MD [id number] [facility] [id number] [place] [address] [phone] [facility] Start: 03-16-2020 Procedure Education Eprescribed prescriptions ([id number]) [facility] Work Phone: Start: 09-14-2019 Screening for malignant neoplasm of breast Mammogram Screening [facility] Start: 09-14-2019 Screening mammography Mammogram [facility] Start: 12-01-2018 Screening for malignant neoplasm of colon [facility] Start: 09-24-2018 Screening for malignant neoplasm of breast Mammogram [facility] Start: 09-24-2018 Screening mammography Mammogram [facility] Start: 06-13-2018 Screening for malignant neoplasm of colon [facility] Start: 2016 Fall risk assessment Falls Risk Assessment [facility] Start: 2016 Pneumococcal Vaccine: Age 65+ (1 of 1 - PPSV23) Pneumococcal Vaccine: Age 65+ (1 of 1 - PPSV23) [facility] Start: 2016 Screening for osteoporosis Bone Density Screening [facility] Start: 04-25-2014 Administration of herpes zoster vaccine Zoster Vaccines (2 of 3) [facility] Start: 04-25-2014 Shingrix Vaccine (2 of 3) Shingrix Vaccine (2 of 3) [facility] Start: 2011 RSV Vaccine (1 - Risk 60-74 years 1-dose series) RSV Vaccine (1 - Risk 60-74 years 1-dose series) [facility] Start: 2001 Screening for malignant neoplasm of colon [facility] Start: 1996 Screening for malignant neoplasm of colon [facility] Start: 1969 Annual PCP Team Chronic Disease Visit Annual PCP Team Chronic Disease Visit [facility] Start: 1969 Anxiety Screening Anxiety Screening [facility] [facility] Start: 1969 BP Controlled (<130/80) BP Controlled (<130/80) [facility] in Start: 1969 Hepatitis C screening Hepatitis C Screening [facility] Start: 1963 Depression screening using PHQ-9 (Patient Health Questionnaire 9) score [facility] Start: 1954 History and physical examination, annual for health maintenance Wellness Visit [facility] Start: 1950 Screening for osteoporosis Dexa Scan [facility] Start: 1950 Tetanus vaccination Tetanus: Every 10yrs [facility] Albumin [Moles/volum e] in Serum or Plasma [facility] Work Phone: Albumin/Globulin ratio [facility] Work Phone: CBC W Auto Different ial panel - Blood [facility] Work Phone: CBC W Auto Different ial panel - Blood [facility] CBC W Auto Different ial panel - Blood [facility] CBC W Auto Different ial panel - Blood [facility] CT Abdomen and Pelvis [facility] Work Phone: Electrophoresis: [id number] [facility] Work Phone: Electrophoresis: kris ma globulin [facility] Work Phone: Ferritin [Mass/volum e] in Serum or Plasma [facility] Work Phone: Ferritin [Mass/volum e] in Serum or Plasma [facility] Ferritin [Mass/volum e] in Serum or Plasma [facility] Ferritin [Mass/volum e] in Serum or Plasma [facility] Folate [Mass/volume] in Serum or Plasma [facility] Globulin measurement [facility] Work Phone: Haptoglobin [Mass/volume] in Serum or Plasma [facility] IgA [Mass/volume] in Serum or Plasma [facility] Work Phone: IgE [Units/volume] i n Serum or Plasma [facility] Work Phone: IgG [Mass/volume] in Serum or Plasma [facility] Work Phone: IgM [Mass/volume] in Serum or Plasma [facility] Work Phone: Iron [Mass/mass] in Unspecified specimen [facility] Iron and Iron bindin g capacity panel - Serum or Plasma [facility] Work Phone: Iron and Iron bindin g capacity panel - Serum or Plasma [facility] Iron and Iron bindin g capacity panel - Serum or Plasma [facility] Iron and Iron bindin g capacity panel - Serum or Plasma [facility] Lactate dehydrogenas e measurement [facility] MRI of cervical spine MR Cervica l Spine With And Without Contrast Imaging Routine Transverse myelitis (HCC) 10/04/2020 10:11 AM EDT [facility] Neutrophil cytoplasm ic Ab.classic [Units/volume] in Serum [facility] Work Phone: P-ANCA measurement [facility] Work Phone: Patient Education GI Bleeding Ca uses and Tests Anemia Iron Supplements [facility] Work Phone: Patient referral [facility] Work Phone: Protein electrophore sis panel - Serum or Plasma [facility] Work Phone: Reticulocyte count [facility] Work Phone: Reticulocyte count [facility] Reticulocyte count [facility] Serum immunofixation [facility] Serum protein electrophoresis [facility] Work Phone: Smooth muscle Ab [Presence] in Serum [facility] Work Phone: Vitamin B12 measurement [facility] Work Phone: Vitamin B12 measurement [facility] Vitamin B12 measurement [facility] Immunizations Immunization Date Immunization Notes Care Provider [facility] 03-13-2022 influenza virus vaccine, unspecified formulation Jim Torres MD Work Phone: [facility] 07-26-2020 Covid (Pfizer) [facility] 07-05-2020 Covid (Pfizer) [facility] 01-28-2017 influenza, injectabl e, quadrivalent, preservative free Dr. Casie Trevizo Work Phone: [facility] 01-28-2017 influenza, seasonal, injectable [facility] 01-23-2017 Pneumococcal Vaccine [facility] Work Phone: 01-23-2017 pneumococcal vaccine , unspecified formulation Dr. Cara Arce Work Phone: [facility] 08-08-2015 Pneumococcal Vaccine [facility] Work Phone: 08-08-2015 pneumococcal vaccine , unspecified formulation Dr. Cara Arce Work Phone: [facility] 01-02-2015 Influenza virus vaccine [facility] 10-11-2012 Pneumococcal Vaccine [facility] Work Phone: 10-11-2012 pneumococcal vaccine , unspecified formulation Dr. Cara Arce Work Phone: [facility] Payers Date Payer Category Payer Self-pay [id number] 2019 Unknown [id number] 1. [id number] 2019 Unknown [id number] 2005 Unknown 2003 Medicare [id number] 2003 Medicare [id number]. [id number] 2003 Medicare [id number] 1950 Unknown [id number] 2.16. 840.1.711013.3.579.2.900 1950 Unknown [id number] 2.16. 840.1.667737.3.579.2.900 1950 Unknown [id number] 2.16. 840.1.703272.3.579.2.900 1950 Unknown [id number] 2.16. 840.1.300527.3.579.2.900 1950 Unknown [id number] 2.16. 840.1.482740.3.579.2.900 1950 Unknown [id number] 2.16. 840.1.158970.3.579.2.900 1950 Unknown [id number] 2.16. 840.1.890589.3.579.2.900 1951 Unknown [id number] 2.16. 840.1.767170.3.579.2.900 1950 Unknown [id number] 2.16. 840.1.848260.3.579.2.900 Unknown [id number] Unknown [id number] 2.16.8 40.1.446647.3.579.2.462 Unknown [id number] 2.16.8 40.1.351222.3.579.2.462 Unknown [id number] 2.16.8 40.1.590987.3.579.2.462 Unknown [id number] 2.16.8 40.1.637448.3.579.2.462 Unknown [id number] 2.16.8 40.1.807591.3.579.2.462 Unknown [id number] 2.16.8 40.1.568072.3.579.2.462 Unknown [id number] 2.16.8 40.1.291635.3.579.2.462 Unknown [id number] 2.16.8 40.1.732895.3.579.2.462 Unknown [id number] 2.16.8 40.1.667078.3.579.2.462 Unknown [id number] 2.16.8 40.1.133749.3.579.2.462 Unknown [id number] 2.16.8 40.1.889390.3.579.2.462 Unknown [id number] 2.16.8 40.1.333751.3.579.2.462 Unknown [id number] 2.16.8 40.1.411740.3.579.2.462 Unknown [id number] 2.16.8 40.1.240728.3.579.2.462 Unknown [id number] 2.16.8 40.1.911620.3.579.2.462 Unknown [id number] 2.16.8 40.1.740649.3.579.2.462 Unknown [id number] 2.16.8 40.1.942469.3.579.2.462 Unknown [id number] 2.16.8 40.1.011852.3.579.2.462 Unknown [id number] 2.16.8 40.1.250249.3.579.2.462 Unknown [id number] 2.16.8 40.1.715822.3.579.2.462 Unknown [id number] 2.16.8 40.1.164276.3.579.2.462 Unknown [id number] 2.16.8 40.1.084972.3.579.2.462 Unknown [id number] 2.16.8 40.1.910303.3.579.2.462 Unknown [id number] 2.16.8 40.1.334061.3.579.2.462 Unknown [id number] 2.16.8 40.1.814424.3.579.2.462 Unknown [id number] 2.16.8 40.1.369787.3.579.2.462 Unknown [id number] 2.16.8 40.1.879589.3.579.2.462 Unknown [id number] 2.16.8 40.1.040905.3.579.2.462 Unknown [id number] 2.16.8 40.1.903126.3.579.2.462 Unknown [id number] 2.16.8 40.1.687165.3.579.2.462 Unknown [id number] 2.16.8 40.1.699552.3.579.2.462 Unknown [id number] 2.16.8 40.1.851363.3.579.2.462 Unknown [id number] 2.16.8 40.1.340406.3.579.2.462 Unknown [id number] 2.16.8 40.1.184472.3.579.2.462 Unknown [id number] 2.16.8 40.1.003911.3.579.2.462 Unknown [id number] 2.16.8 40.1.710014.3.579.2.462 Unknown [id number] 2.16.8 40.1.156910.3.579.2.462 Unknown [id number] 2.16.8 40.1.756392.3.579.2.462 Unknown [id number] 2.16.8 40.1.591741.3.579.2.462 Unknown [id number] 2.16.8 40.1.269642.3.579.2.462 Unknown [id number] 2.16.8 40.1.325348.3.579.2.462 Unknown [id number] 2.16.8 40.1.709190.3.579.2.462 Unknown [id number] 2.16.8 40.1.061382.3.579.2.462 Social History Date Type Detail Facility Tobacco smoking stat us [facility] Unknown if ever smoked [facility] Start: 1950 Sex Assigned At Not on file [facility] Exposure to SARS-CoV -2 (event) Not sure [facility] Start: 09-23-2020 End: 04-13-2024 Tobacco smoking status MTIS Never smoker [facility] Start: 07-26-2013 End: 09-23-2020 Tobacco use and exposure Never used [facility] Work Phone: Start: 09-23-2020 End: 10-20-2020 Alcohol intake Ex-drinker (finding) [facility] Start: 09-13-2020 History SDOH Alcohol Frequency 1 [facility] Start: 09-13-2020 History SDOH Alcohol Std Drinks 99 [facility] Start: 06-19-2021 End: 03-19-2023 Tobacco smoking status NHIS Unknown if ever smoked [facility] Start: 11-11-2019 None [facility] Start: 11-11-2019 Alone [facility] Start: 12-03-2019 Non-smoker [facility] Start: 1950 Sex Assigned At Female [facility] Start: 04-19-2024 Alcoholic beverage intake Curr ent non-drinker of alcohol (finding) [facility] Start: 10-10-2022 End: 04-15-2024 History of Social function [facility] Work Phone: Start: 10-10-2022 End: 04-15-2024 [facility] Utilities [facility] Work Phone: Has the [employer], [employer], or water company threatened to shut off services in your home in past 12Mo No [facility] Work Phone: (I/We) worried wheth er (my/our) food would run out before (I/we) got money to buy more. Never true [facility] In the past 12 month s, has lack of transportation kept you from medical appointments or from getting medications? No [facility] NEGATED: Highlighted row [facility] Medical Equipment Procedure Code Equipment Code Equipment Origin al Text Equipment Identifier Dates Insertion, spinal cord stimulator, for trial MEDTRONIC TRIAL LEAD KIT FDA Start: 05-10-2018 Insertion, spinal cord stimulator, for trial TRIAL SCREENING LEAD KIT FDA Start: 06-24-2021 Insertion, spinal cord stimulator, for trial TRIAL SCREENING LEAD KIT FDA Start: 06-24-2021 Insertion, spinal cord stimulator, for trial MEDTRONIC TRIAL LEAD KIT FDA Start: 05-10-2018 Insertion, spinal cord stimulator, for trial TRIAL SCREENING LEAD KIT FDA Start: 06-24-2021 Insertion, spinal cord stimulator, for trial TRIAL SCREENING LEAD KIT FDA Start: 06-24-2021 Insertion, spinal cord stimulator, for trial MEDTRONIC TRIAL LEAD KIT FDA Start: 05-10-2018 Insertion, spinal cord stimulator, for trial TRIAL SCREENING LEAD KIT FDA Start: 06-24-2021 Insertion, spinal cord stimulator, for trial TRIAL SCREENING LEAD KIT FDA Start: 06-24-2021 Insertion, spinal cord stimulator, for trial MEDTRONIC TRIAL LEAD KIT FDA Start: 05-10-2018 Insertion, spinal cord stimulator, for trial TRIAL SCREENING LEAD KIT FDA Start: 06-24-2021 Insertion, spinal cord stimulator, for trial TRIAL SCREENING LEAD KIT FDA Start: 06-24-2021 Insertion, spinal cord stimulator, for trial MEDTRONIC TRIAL LEAD KIT FDA Start: 05-10-2018 Insertion, spinal cord stimulator, for trial TRIAL SCREENING LEAD KIT FDA Start: 06-24-2021 Insertion, spinal cord stimulator, for trial TRIAL SCREENING LEAD KIT FDA Start: 06-24-2021 Insertion, spinal cord stimulator, for trial MEDTRONIC TRIAL LEAD KIT FDA Start: 05-10-2018 Insertion, spinal cord stimulator, for trial TRIAL SCREENING LEAD KIT FDA Start: 06-24-2021 Insertion, spinal cord stimulator, for trial TRIAL SCREENING LEAD KIT FDA Start: 06-24-2021 Insertion, spinal cord stimulator, for trial MEDTRONIC TRIAL LEAD KIT FDA Start: 05-10-2018 Insertion, spinal cord stimulator, for trial TRIAL SCREENING LEAD KIT FDA Start: 06-24-2021 Insertion, spinal cord stimulator, for trial TRIAL SCREENING LEAD KIT FDA Start: 06-24-2021 Insertion, spinal cord stimulator, for trial MEDTRONIC TRIAL LEAD KIT FDA Start: 05-10-2018 Insertion, spinal cord stimulator, for trial TRIAL SCREENING LEAD KIT FDA Start: 06-24-2021 Insertion, spinal cord stimulator, for trial TRIAL SCREENING LEAD KIT FDA Start: 06-24-2021 Insertion, spinal cord stimulator, for trial MEDTRONIC TRIAL LEAD KIT FDA Start: 05-10-2018 Insertion, spinal cord stimulator, for trial TRIAL SCREENING LEAD KIT FDA Start: 06-24-2021 Insertion, spinal cord stimulator, for trial TRIAL SCREENING LEAD KIT FDA Start: 06-24-2021 Insertion, spinal cord stimulator, for trial MEDTRONIC TRIAL LEAD KIT FDA Start: 05-10-2018 Insertion, spinal cord stimulator, for trial TRIAL SCREENING LEAD KIT FDA Start: 06-24-2021 Insertion, spinal cord stimulator, for trial TRIAL SCREENING LEAD KIT FDA Start: 06-24-2021 Insertion, spinal cord stimulator, for trial MEDTRONIC TRIAL LEAD KIT FDA Start: 05-10-2018 Insertion, spinal cord stimulator, for trial TRIAL SCREENING LEAD KIT FDA Start: 06-24-2021 Insertion, spinal cord stimulator, for trial TRIAL SCREENING LEAD KIT FDA Start: 06-24-2021 Insertion, spinal cord stimulator, for trial MEDTRONIC TRIAL LEAD KIT FDA Start: 05-10-2018 Insertion, spinal cord stimulator, for trial TRIAL SCREENING LEAD KIT FDA Start: 06-24-2021 Insertion, spinal cord stimulator, for trial TRIAL SCREENING LEAD KIT FDA Start: 06-24-2021 Insertion, spinal cord stimulator, for trial MEDTRONIC TRIAL LEAD KIT FDA Start: 05-10-2018 Insertion, spinal cord stimulator, for trial TRIAL SCREENING LEAD KIT FDA Start: 06-24-2021 Insertion, spinal cord stimulator, for trial TRIAL SCREENING LEAD KIT FDA Start: 06-24-2021 Insertion, spinal cord stimulator, for trial MEDTRONIC TRIAL LEAD KIT FDA Start: 05-10-2018 Insertion, spinal cord stimulator, for trial TRIAL SCREENING LEAD KIT FDA Start: 06-24-2021 Insertion, spinal cord stimulator, for trial TRIAL SCREENING LEAD KIT FDA Start: 06-24-2021 Insertion, spinal cord stimulator, for trial FDA Start: 05-10-2018 Insertion, spinal cord stimulator, for trial FDA Start: 06-24-2021 Insertion, spinal cord stimulator, for trial FDA Start: 06-24-2021 Insertion, spinal cord stimulator, for trial MEDTRONIC TRIAL LEAD KIT FDA Start: 05-10-2018 Insertion, spinal cord stimulator, for trial TRIAL SCREENING LEAD KIT FDA Start: 06-24-2021 Insertion, spinal cord stimulator, for trial TRIAL SCREENING LEAD KIT FDA Start: 06-24-2021 Insertion, spinal cord stimulator, for trial MEDTRONIC TRIAL LEAD KIT FDA Start: 05-10-2018 Insertion, spinal cord stimulator, for trial TRIAL SCREENING LEAD KIT FDA Start: 06-24-2021 Insertion, spinal cord stimulator, for trial TRIAL SCREENING LEAD KIT FDA Start: 06-24-2021 Insertion, spinal cord stimulator, for trial MEDTRONIC TRIAL LEAD KIT FDA Start: 05-10-2018 Insertion, spinal cord stimulator, for trial TRIAL SCREENING LEAD KIT FDA Start: 06-24-2021 Insertion, spinal cord stimulator, for trial TRIAL SCREENING LEAD KIT FDA Start: 06-24-2021 Insertion, infusion pump, for analgesia SynchroMED II 8637-20 FDA Start: 01-21-2021 Insertion, infusion pump, for analgesia SynchroMED II 8637-20 FDA Start: 01-21-2021 Insertion, infusion pump, for analgesia SynchroMED II 8637-20 FDA Start: 01-21-2021 Insertion, infusion pump, for analgesia SynchroMED II 8637-20 FDA Start: 01-21-2021 Insertion, infusion pump, for analgesia SynchroMED II 8637-20 FDA Start: 01-21-2021 Insertion, infusion pump, for analgesia SynchroMED II 8637-20 FDA Start: 01-21-2021 Insertion, infusion pump, for analgesia SynchroMED II 8637-20 FDA Start: 01-21-2021 Insertion, infusion pump, for analgesia SynchroMED II 8637-20 FDA Start: 01-21-2021 Insertion, infusion pump, for analgesia SynchroMED II 8637-20 FDA Start: 01-21-2021 Insertion, infusion pump, for analgesia SynchroMED II 8637-20 FDA Start: 01-21-2021 Insertion, infusion pump, for analgesia SynchroMED II 8637-20 FDA Start: 01-21-2021 Insertion, infusion pump, for analgesia SynchroMED II 8637-20 FDA Start: 01-21-2021 Insertion, infusion pump, for analgesia SynchroMED II 8637-20 FDA Start: 01-21-2021 Insertion, infusion pump, for analgesia SynchroMED II 8637-20 FDA Start: 01-21-2021 Insertion, infusion pump, for analgesia FDA Start: 01-21-2021 Insertion, infusion pump, for analgesia SynchroMED II 8637-20 FDA Start: 01-21-2021 Insertion, infusion pump, for analgesia SynchroMED II 8637-20 FDA Start: 01-21-2021 Insertion, infusion pump, for analgesia SynchroMED II 8637-20 FDA Start: 01-21-2021 Synchromed Ii Pump [id number] Start : 07-14-2014 Comment on above: Description: MRI inf ormation for Model 8637-20 and 8637-40 SynchroMed II pumps MR MR Conditional: If the patient is implanted with a Medtronic SynchroMed II pump, MRI examinations of the entire body may be safely performed under the following conditions: ? 1.5-Stefanie (T) and 3T horizontal closed bore ? Maximum spatial gradient of 19T/m (1900 gauss/cm) ? Maximum gradient slew rate: 200 T/m/s ? Maximum RF field intensity: First level controlled operating mode defined in IEC 36077-2-81 SynchroMed II pump performance has not been established using other types of MRI scanners such as open-sided or standing MRI. Medtronic Drug Infusion System FDA Start: 07-14-2014 Medtronic Drug Infusion System FDA Start: 07-14-2014 Medtronic Drug Infusion System FDA Start: 07-14-2014 Medtronic Drug Infusion System FDA Start: 07-14-2014 Medtronic Drug Infusion System FDA Start: 07-14-2014 Medtronic Drug Infusion System FDA Start: 07-14-2014 Medtronic Drug Infusion System FDA Start: 07-14-2014 Medtronic Drug Infusion System FDA Start: 07-14-2014 Medtronic Drug Infusion System FDA Start: 07-14-2014 Medtronic Drug Infusion System FDA Start: 07-14-2014 Medtronic Drug Infusion System FDA Start: 07-14-2014 Medtronic Drug Infusion System FDA Start: 07-14-2014 Medtronic Drug Infusion System FDA Start: 07-14-2014 Medtronic Drug Infusion System FDA Start: 07-14-2014 FDA Start: 07-14-2014 Medtronic Drug Infusion System FDA Start: 07-14-2014 Medtronic Drug Infusion System FDA Start: 07-14-2014 Medtronic Drug Infusion System FDA Start: 07-14-2014 Goals Date Patient Goal Desired Activity /State Mental Status Date Assessment Result Facility 01-16-2025 Cognitive function Voice/Name [facility] Work Phone: 03-23-2023 Cognitive function Voice/Name [facility] Work Phone: 11-17-2022 Cognitive function Voice/Name [facility] Work Phone: 03-06-2022 Cognitive function Voice/Name [facility] Work Phone: 12-26-2021 Cognitive function Level Of Cons ciousness Awake;Alert;Appropriate;Follow s Commands [facility] Work Phone: 02-21-2022 Cognitive function Level Of Cons ciousness Awake;Appropriate [facility] Work Phone: 06-24-2021 Cognitive function Voice/Name [facility] Work Phone: Clinical Notes 09-10-2020 to 01-16-2025 Note Date & Type Note Facility 01-16-2025 Procedure note [facility] 10-12-2024 Progress note Note Date/Time October 12, 2024 11:35am [facility] [address] [place] [address] Progress Note - Wound Care 10/12/24 1131 MR#: [id number] Acct: [id number] Name: ALEENA ANDREA Rep #:[id number] 12 : 1950 74 From: Evelyn Robertson NP DATA SECURITY CONSULTANT-C PCP: Dr. 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 Patient underwent treatment for colitis as an inpatient in March 2024 and developed a right ischial pressure ulcer. It was debrided twice at [facility]. She has been following for wound care with a nurse practitioner in the wound care center, whoreferred her to me for second opinion to see if she needs surgery. Patient lives at home in an apartment usually by herself. She does not have a pressure offloading bed. She is quite high functioning; however, she is currently in a nursing facility for wound care ever since the recent hospital admission. 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 She has an adult daughter in [place] and an adult daughter here in [place] whoare both very involved and supportive. Progress of Wound: The right buttocks is healed the sacral area where she had burned her self is healed and the left toe hallux is healed. I suggested we pad them for another week with little foam pads and she needs to wear her aperture pad over her left great toe all the time when she sleeps on her stomach to keep it from reopening. Patient can be discharged and will follow-up as needed Subjective Subjective Patient is very happy about being discharged Objective Data Objective Data No sign of infection all healed well skin looks supple tolerated everything wellis anxious to be discharged. Vital Signs: Vital Signs Temp Pulse Resp BP 97.6 F L 74 18 133/86 H 10/12/24 10:53 10/12/24 10:53 10/12/24 10:53 10/12/24 10:53 Weight: 89 lb 6.4 oz Body Mass Index (BMI) 16.9 Physical Exam Const oriented x3 General Appearance: cooperative Orientation / Consciousness: oriented to person, oriented to place and oriented to time Exam Limitations: no limitations Nutritional Appearance: cachectic, underweight and thin HEENT normocephalic Head and Scalp: normal to inspection External Ear: external ears normal Eyes PERRL General Eye: normal appearance of both eyes Neck full ROM General: normal visual inspection Resp normal respiratory effort Effort and Inspection: able to speak in complete sentences Auscultation: clear to auscultation bilaterally Cardio regular rate and regular rhythm Palpation: normal PMI Rate: regular rate Rhythm: regular rhythm GI Rectal Exam: visual inspection abnormal, fistula and other Other Details: Open wound left buttocks and perirectal may be fistula going on. Back/Spine Back/Spine Narrative: Paralysis from waist down Cervical Spine: cervical ROM normal Pelvis: buttocks abnormal right and other soft tissue findings Wound on her coccyx area Skin no rashes or lesions noted Skin Narrative: Open wounds on left buttocks with positive depth and infection possible sepsis sacral area open area nonhealing and perirectal area possibly a fistula. Wounds: wounds noted Wound Narrative: Open wound on coccyx stage II Right buttocks wound stage IV Neuro oriented x3 Psych Appearance: grossly normal Attitude: calm Activity / Motor Behavior: appropriate eye contact Speech: normal speech Mood & Affect: euthymic mood Thought Process: normal thought process Thought Content: normal thought content Attention / Concentration: attention grossly intact Memory / Cognition: memory grossly intact Insight: insight good Judgement: judgement good Debridement Note Debridement Note No debridement was completed: No debridement was completed today Post-Debridement Measurements and Additional Note: Post-Debridement Measurements/Treatment - Nurse 1 - General Ulcer Assessment Start: 10/05/24 11:05 Freq: Status: Active Protocol: JOSEPHINE Activity Type Activity Date Activity User E-sign Co-sign Detail Recorded Client Recorded Date Recorded By Document 10/05/24 11:05 RB [id number] 10/05/24 11:09 RB Document 10/12/24 10:53 RB [id number] 10/12/24 10:57 RB 10/05/24 10/12/24 11:05 10:53 WC - Today's Visit Information Type of service Follow-up Visit Follow-up Visit (Physician/LIAISON OFFICER (Physician/LIAISON OFFICER ) ) Arrival Mode Wheelchair Wheelchair Transfer Assistance Manual None Patient Identification Verified (Name & Yes Yes ) Patient Requires Transmission-Based No No Precautions Height and Weight Body Mass Index (BMI) 16.9 16.9 BMI Classification Underweight Underweight Vital Signs Temperature (97.8 F-99.1 F) 96.3 F L 97.6 F L Temperature Source Temporal Temporal Pulse Rate (60-100) 70 74 Pulse Location Monitor Monitor Respiratory Rate (12-18) 18 18 Respiratory rate source Observation Observation Blood Pressure (90/60-120/80) 98/55 L 133/86 H Blood Pressure Mean (mm Hg) 69 101 Source Monitor Monitor Position Sitting Semi-Fowlers Blood Pressure Location Left Arm Left Arm History Since Last Visit- (Skip if this is Patient's initial visit) Have you changed medications since your No No last visit? Any new allergies or adverse reactions No No Had a fall/change in ADL's that may No No increase risk of falls Signs or symptoms of abuse and/or No No neglect since last visit Have you been in the hospital since your No No last visit? Has dressing in place as prescribed Yes Yes Has compression in place as prescribed N/A N/A Has offloadiing in place as prescribed N/A Yes Experienced any changes in pain level or No No management Left Footwear Regular Shoe Right Footwear Regular Shoe Pain Scale: 0-10 Numeric Is Patient Pain Free? Yes Yes MARY - Nurse 1 - General Ulcer Measurement Start: 10/05/24 11:05 Freq: Status: Active Protocol: Activity Type Activity Date Activity User E-sign Co-sign Detail Recorded Client Recorded Date Recorded By Document 10/05/24 11:05 RB [id number] 10/05/24 11:09 RB Document 10/12/24 10:53 RB [id number] 10/12/24 10:57 RB 10/05/24 10/12/24 11:05 10:53 Wound Center Nurse 1 19. sacral -Combined with other wound No No -Current Size (cm) - Length 1 0.5 -Current Size (cm) - Width 0.6 0.5 -Current Size (cm) - Depth 0.1 0.1 -Total Square Cm 0.6 0.25 -Photo Taken Yes -Tunneling No No -Undermining/Tunneling No No -Circular Undermining No No -Exudate Amt Medium Medium -Exudate Type Serosanguineous Serosanguineous -Wound Margin Distinct, Distinct, Outline Outline Attached Attached -Granulation Amt Large (67-100%) Medium (34-66%) -Granulation Quality Mcdougal Mcdougal -Slough/Fibrin Yes Yes -Necrosis Amt Small (1-33%) Large (67-100%) -Necrotic Tissue Type Adherent Slough Adherent Slough -Structure Exposed N/A N/A -Texture (Leyla-wound Skin Appearance) Assessed Assessed -Moisture (Leyla-wound Skin Appearance) Assessed Assessed -Color (Leyla-wound Skin Appearance) Assessed, Erythema Erythema -Temperature (Leyla-wound Skin No Abnormality No Abnormality Appearance) (Pt Warm) (Pt Warm) -Tenderness on Palpation (Leyla-wound No No Skin Appearance) -Ulcer Cleansing Wound Cleanser Wound Cleanser -Foul Odor after Cleansing No No -Anesthetic Used 5% Lidocaine Gel #18 L Grt Toe -Combined with other wound No No -Current Size (cm) - Length 0.1 0.7 -Current Size (cm) - Width 0.1 0.7 -Current Size (cm) - Depth 0.1 0.1 -Total Square Cm 0.01 0.49 -Photo Taken Yes -Tunneling No No -Undermining/Tunneling No No -Circular Undermining No No -Exudate Amt Medium Medium -Exudate Type Serosanguineous Serosanguineous -Wound Margin Distinct, Distinct, Outline Outline Attached Attached -Granulation Amt Medium (34-66%) Medium (34-66%) -Granulation Quality Mcdougal Mcdougal -Slough/Fibrin Yes Yes -Necrosis Amt Small (1-33%) Medium (34-66%) -Necrotic Tissue Type Adherent Slough Adherent Slough -Structure Exposed N/A N/A -Texture (Leyla-wound Skin Appearance) Assessed Assessed -Moisture (Leyla-wound Skin Appearance) Assessed Assessed -Color (Leyla-wound Skin Appearance) Assessed Erythema -Temperature (Leyla-wound Skin No Abnormality No Abnormality Appearance) (Pt Warm) (Pt Warm) -Tenderness on Palpation (Leyla-wound No No Skin Appearance) -Ulcer Cleansing Rinsed/ Wound Cleanser Irrigated with Saline -Foul Odor after Cleansing No No -Anesthetic Used 5% Lidocaine Gel #14 Right Buttock -Combined with other wound No No -Current Size (cm) - Length 1.5 0.1 -Current Size (cm) - Width 0.5 0.1 -Current Size (cm) - Depth 0.1 0.1 -Total Square Cm 0.75 0.01 -Photo Taken Yes -Tunneling No No -Undermining/Tunneling No No -Circular Undermining No No -Exudate Amt Medium Medium -Exudate Type Serosanguineous Serosanguineous -Wound Margin Distinct, Distinct, Outline Outline Attached Attached -Granulation Amt Large (67-100%) Medium (34-66%) -Granulation Quality Mcdougal Hyper- granulation, Mcdougal,Red -Slough/Fibrin Yes Yes -Necrosis Amt Medium (34-66%) Small (1-33%) -Necrotic Tissue Type Adherent Slough Adherent Slough -Structure Exposed N/A N/A -Texture (Leyla-wound Skin Appearance) Assessed, Assessed, Scarring Scarring -Moisture (Leyla-wound Skin Appearance) Assessed, Assessed Maceration -Color (Leyla-wound Skin Appearance) Assessed Assessed -Temperature (Leyla-wound Skin No Abnormality No Abnormality Appearance) (Pt Warm) (Pt Warm) -Tenderness on Palpation (Leyla-wound No No Skin Appearance) -Ulcer Cleansing Wound Cleanser Wound Cleanser -Foul Odor after Cleansing Yes No -Anesthetic Used 5% Lidocaine Gel WC - Nurse 2 - General Ulcer CM Notes Start: 10/05/24 11:05 Freq: Status: Active Protocol: Activity Type Activity Date Activity User E-sign Co-sign Detail Recorded Client Recorded Date Recorded By Document 10/05/24 11:23 DS [id number] 10/05/24 11:31 DS Document 10/12/24 11:03 BM [id number] 10/12/24 11:08 BMF 10/05/24 10/12/24 11:23 11:03 Wound Center Nurse 2 19. sacral -Time 11:23 -Correct Patient Yes -Correct Side, Site, Position Yes -Correct Procedure Yes -Procedure Performed Yes No -Type of Procedure Debridement -Clinical Debridement Subcutaneous -Tissue Removed Subcutaneous -Post Debridement (cm) - Length 1.0 0 -Post Debridement (cm) - Width 0.2 0 -Post Debridement (cm) - Depth 0.1 0 -Total Square (Post) (cm) 0.20 0 -Area of Debridement (cm) - Length 1.0 0 -Area of Debridement (cm) - Width 0.2 0 -Total Square (Area) (cm) 0.20 0 -Tunneling No -Undermining/Tunneling No -Circular Undermining No -Wound/Ulcer Outcome Not Healed Healed- Epithelialized -Ulcer Cleansing Rinsed/ Irrigated with Saline -Foul Odor after Cleansing No -Bioengineered Tissue No -Bleeding Controlled with Pressure NA -Treatment Response Procedure Tolerated Well -Debridement - Subq, 1st 20sq cm Yes #18 L Grt Toe -Time 11:25 -Correct Patient Yes -Correct Side, Site, Position Yes -Correct Procedure Yes -Procedure Performed Yes No -Type of Procedure Debridement -Clinical Debridement Subcutaneous -Tissue Removed Subcutaneous -Post Debridement (cm) - Length 0.2 0 -Post Debridement (cm) - Width 0.2 0 -Post Debridement (cm) - Depth 0.1 0 -Total Square (Post) (cm) 0.04 0 -Area of Debridement (cm) - Length 0.2 0 -Area of Debridement (cm) - Width 0.2 0 -Total Square (Area) (cm) 0.04 0 -Tunneling No -Undermining/Tunneling No -Circular Undermining No -Wound/Ulcer Outcome Not Healed Healed- Epithelialized -Ulcer Cleansing Rinsed/ Irrigated with Saline -Foul Odor after Cleansing No -Bioengineered Tissue No -Bleeding Controlled with Pressure NA -Debridement - Subq, 1st 20sq cm No #14 Right Buttock -Time 11:26 -Correct Patient Yes -Correct Side, Site, Position Yes -Correct Procedure Yes -Procedure Performed Yes -Type of Procedure Debridement -Clinical Debridement Subcutaneous -Tissue Removed Subcutaneous -Post Debridement (cm) - Length 0.9 0 -Post Debridement (cm) - Width 0.5 0 -Post Debridement (cm) - Depth 0.1 0 -Total Square (Post) (cm) 0.45 0 -Area of Debridement (cm) - Length 0.9 0 -Area of Debridement (cm) - Width 0.5 0 -Total Square (Area) (cm) 0.45 0 -Tunneling No -Undermining/Tunneling No -Circular Undermining No -Wound/Ulcer Outcome Not Healed Healed- Epithelialized -Ulcer Cleansing Rinsed/ Irrigated with Saline -Foul Odor after Cleansing No -Bioengineered Tissue Yes -Type of Bioengineered Tissue Epifix 18mm Disc -Expiration Date 05/04/29 -Product Lot Number [id number] -Percent Used 100 -Lot number of Saline Used [id number] -Bleeding Controlled with Pressure NA -Treatment Response Procedure Tolerated Well -Debridement - Subq, 1st 20sq cm No -Apply Skin Sub - 1st 25 sq cm - Legs 1 -Epifix 18mm Disc Application 1-4 3 Pain Scale: 0-10 Numeric Is Patient Pain Free? Yes Yes WC - Nurse 3 - General Ulcer D/C NN Start: 10/05/24 11:05 Freq: Status: Active Protocol: Activity Type Activity Date Activity User E-sign Co-sign Detail Recorded Client Recorded Date Recorded By Document 10/05/24 11:57 RB [id number] 10/05/24 11:59 RB Document 10/12/24 11:23 DL [id number] 10/12/24 11:25 DL 10/05/24 10/12/24 11:57 11:23 Wound Care Center Nurse 3 19. sacral -Ulcer Cleansing Rinsed/ Irrigated with Saline -Foul Odor after Cleansing No -Primary Dressing Applied Silicone Border Silicone Border Foam 4x4 Foam 4x4 -Primary Dressing Covered/Secured with Dry Gauze -Silicone Border Foam 4x4 1 1 #18 L Grt Toe -Ulcer Cleansing Rinsed/ Irrigated with Saline -Primary Dressing Applied Silicone Border Silicone Border Foam 4x4 Foam 4x4 -Other Dressing xeroform/ APPETURE PAD mepliex then apperture pad -Silicone Border Foam 4x4 1 1 #14 Right Buttock -Ulcer Cleansing Rinsed/ Irrigated with Saline -Primary Dressing Applied Silicone Border Silicone Border Foam 6x6 Foam 4x4 -Primary Dressing Covered/Secured with Dry Gauze -Silicone Border Foam 4x4 1 -Silicone Border Foam 6x6 1 -Wound Comment(s) Pt healed/ discharged. Treatment Response Procedure Procedure Tolerated Well Tolerated Well Pain Scale: 0-10 Numeric Is Patient Pain Free? Yes Yes WC - Visit Discharge Discharge Condition Stable Stable Ambulatory Status Wheelchair Wheelchair Transportation Private Auto ECF TRANS Medication Reconcilliation completed & No provided to patient/care provider Clinical Summary of Care Provided Yes Facility Type Clinical Trial Manager Care Facility Orders Sent Yes Assessment/Plan Assessment/Plan (1) Decubitus ulcer of sacral region, stage 2: CODE(S): L89.152 - Pressure ulcer of sacral region, stage 2 PLAN: Discharge from the wound center follow-up as needed\ May pad the areas with foam pads for the next week and then she can take them off but her left toe she will always have to have a pad and aperture over top tokeep it from reopening. (2) Decubitus ulcer of toe, stage 2: CODE(S): L89.892 - Pressure ulcer of other site, stage 2 QUALIFIERS: Laterality: left Qualified Code(s): L89.892 - Pressure ulcer of other site, stage 2 (3) Chronic anemia: CODE(S): D64.9 - Anemia, unspecified (4) Decubitus ulcer of right buttock, stage 4: CODE(S): L89.314 - Pressure ulcer of right buttock, stage 4 (5) Skin ulcer of left great toe: CODE(S): L97.529 - Non-pressure chronic ulcer of other part of left foot with unspecified severity QUALIFIERS: Non-pressure ulcer stage: limited to breakdown of skin Qualified Code(s): L97.521 - Non-pressure chronic ulcer of other part of left foot limited to breakdown of skin (6) Decubitus ulcer of left ischium, stage 2: CODE(S): L89.322 - Pressure ulcer of left buttock, stage 2 PLAN: Resolved and monitor may use Skin-Prep as needed (7) Ulcer of anus: CODE(S): K62.6 - Ulcer of anus and rectum PLAN: Resolved and monitor use Skin-Prep as needed (8) Non-pressure chronic ulcer of buttock: CODE(S): L98.419 - Non-pressure chronic ulcer of buttock with unspecified severity QUALIFIERS: Non-pressure ulcer stage: limited to breakdown of skin Qualified Code(s): L98.411 - Non-pressure chronic ulcer of buttock limited to breakdown of skin 10/12/24 1135 <Electronically signed by Evelyn Robertson NP DATA SECURITY CONSULTANT-C> Cosigner Signature (if applicable): CC: ~ Signed [facility] Work Phone: [phone] Progress note [facility] [address] [place] [address] Progress Note - Wound Care 10/12/24 1131 MR#: [id number] Acct: [id number] Name: ALEENA ANDREA Rep #:[id number] 12 : 1950 74 From: Evelyn Robertson NP DATA SECURITY CONSULTANT-C PCP: Dr. 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 Patient underwent treatment for colitisas an inpatient in March 2024 and developed a right ischial pressure ulcer. It was debrided twice at [facility]. She has been following for wound care with a nurse practitioner in the wound care center, whoreferred her to me for second opinion to see if she needs surgery. Patient lives at home in an apartment usually by herself. She does not have a pressure offloading bed. She is quite highfunctioning; however, she is currently in a nursing facility for wound care ever since the recent hospital admission. 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 She has an adult daughter in [place] and an adult daughter here in [place] whoare both very involved and supportive. Progress of Wound: The right buttocks is healed the sacral area where she had burned her self is healed and the left toe hallux is healed. I suggested we pad them for another week with little foam pads and she needs towear her aperture pad over her left great toe all the time when she sleeps on her stomach to keep it from reopening. Patient can be discharged and will follow-up as needed Subjective Subjective Patient is very happy about being discharged Objective Data Objective Data No sign of infection all healed well skin looks supple tolerated everything wellis anxious to be discharged. Vital Signs: Vital Signs Temp Pulse Resp BP 97.6 F L 74 18 133/86 H 10/12/24 10:53 10/12/24 10:53 10/12/24 10:53 10/12/24 10:53 Weight: 89 lb 6.4 oz Body Mass Index (BMI) 16.9 Physical Exam Const oriented x3 General Appearance: cooperative Orientation / Consciousness: oriented to person, oriented to place and oriented to time Exam Limitations: no limitations Nutritional Appearance: cachectic, underweight and thin HEENT normocephalic Head and Scalp: normal to inspection External Ear: external ears normal Eyes PERRL General Eye: normal appearance of both eyes Neck full ROM General: normal visual inspection Resp normal respiratory effort Effort and Inspection: able to speak in complete sentences Auscultation: clear to auscultation bilaterally Cardio regular rate and regular rhythm Palpation: normal PMI Rate: regular rate Rhythm: regular rhythm GI Rectal Exam: visual inspection abnormal, fistula and other Other Details: Open wound left buttocks and perirectal may be fistula going on. Back/Spine Back/Spine Narrative: Paralysis from waist down Cervical Spine: cervical ROM normal Pelvis: buttocks abnormal right and other soft tissue findings Wound on her coccyx area Skin no rashes or lesions noted Skin Narrative: Open wounds on left buttocks with positive depth and infection possible sepsis sacral area open area nonhealing and perirectal area possibly a fistula. Wounds: wounds noted Wound Narrative: Open wound on coccyx stage II Right buttocks wound stage IV Neuro oriented x3 Psych Appearance: grossly normal Attitude: calm Activity / Motor Behavior: appropriate eye contact Speech: normal speech Mood & Affect: euthymic mood Thought Process: normal thought process Thought Content: normal thought content Attention / Concentration: attention grossly intact Memory / Cognition: memory grossly intact Insight: insight good Judgement: judgement good Debridement Note Debridement Note No debridement was completed: No debridement was completed today Post-Debridement Measurements and Additional Note: Post-Debridement Measurements/Treatment - Nurse 1 - General Ulcer Assessment Start: 10/05/24 11:05 Freq: Status: Active Protocol: JOSEPHINE Activity Type Activity Date Activity User E-sign Co-sign Detail Recorded Client Recorded Date Recorded By Document 10/05/24 11:05 RB [id number] 10/05/24 11:09 RB Document 10/12/24 10:53 RB [id number] 10/12/24 10:57 RB 10/05/24 10/12/24 11:05 10:53 - Today's Visit Information Type of service Follow-up Visit Follow-up Visit (Physician/LIAISON OFFICER (Physician/LIAISON OFFICER ) ) Arrival Mode Wheelchair Wheelchair Transfer Assistance Manual None Patient Identification Verified (Name & Yes Yes ) Patient Requires Transmission-Based No No Precautions Height and Weight Body Mass Index (BMI) 16.9 16.9 BMI Classification Underweight Underweight Vital Signs Temperature (97.8 F-99.1 F) 96.3 F L 97.6 F L Temperature Source Temporal Temporal Pulse Rate (60-100) 70 74 Pulse Location Monitor Monitor Respiratory Rate (12-18) 18 18 Respiratory rate source Observation Observation Blood Pressure (90/60-120/80) 98/55 L 133/86 H Blood Pressure Mean (mm Hg) 69 101 Source Monitor Monitor Position Sitting Semi-Fowlers Blood Pressure Location Left Arm Left Arm History Since Last Visit- (Skip if this is Patient's initial visit) Have you changed medications since your No No last visit? Any new allergies or adverse reactions No No Had a fall/change in ADL's that may No No increase risk of falls Signs or symptoms of abuse and/or No No neglect since last visit Have you been in the hospital since your No No last visit? Has dressing in place as prescribed Yes Yes Has compression in place as prescribed N/A N/A Has offloadiing in place as prescribed N/A Yes Experienced any changes in pain level or No No management Left Footwear Regular Shoe Right Footwear Regular Shoe Pain Scale: 0-10 Numeric Is Patient Pain Free? Yes Yes - Nurse 1 - General Ulcer Measurement Start: 10/05/24 11:05 Freq: Status: Active Protocol: Activity Type Activity Date Activity User E-sign Co-sign Detail Recorded Client Recorded Date Recorded By Document 10/05/24 11:05 RB [id number] 10/05/24 11:09 RB Document 10/12/24 10:53 RB [id number] 10/12/24 10:57 RB 10/05/24 10/12/24 11:05 10:53 Wound Center Nurse 1 19. sacral -Combined with other wound No No -Current Size (cm) - Length 1 0.5 -Current Size (cm) - Width 0.6 0.5 -Current Size (cm) - Depth 0.1 0.1 -Total Square Cm 0.6 0.25 -Photo Taken Yes -Tunneling No No -Undermining/Tunneling No No -Circular Undermining No No -Exudate Amt Medium Medium -Exudate Type Serosanguineous Serosanguineous -Wound Margin Distinct, Distinct, Outline Outline Attached Attached -Granulation Amt Large (67-100%) Medium (34-66%) -Granulation Quality Mcdougal Mcdougal -Slough/Fibrin Yes Yes -Necrosis Amt Small (1-33%) Large (67-100%) -Necrotic Tissue Type Adherent Slough Adherent Slough -Structure Exposed N/A N/A -Texture (Leyla-wound Skin Appearance) Assessed Assessed -Moisture (Leyla-wound Skin Appearance) Assessed Assessed -Color (Leyla-wound Skin Appearance) Assessed, Erythema Erythema -Temperature (Leyla-wound Skin No Abnormality No Abnormality Appearance) (Pt Warm) (Pt Warm) -Tenderness on Palpation (Leyla-wound No No Skin Appearance) -Ulcer Cleansing Wound Cleanser Wound Cleanser -Foul Odor after Cleansing No No -Anesthetic Used 5% Lidocaine Gel #18 L Grt Toe -Combined with other wound No No -Current Size (cm) - Length 0.1 0.7 -Current Size (cm) - Width 0.1 0.7 -Current Size (cm) - Depth 0.1 0.1 -Total Square Cm 0.01 0.49 -Photo Taken Yes -Tunneling No No -Undermining/Tunneling No No -Circular Undermining No No -Exudate Amt Medium Medium -Exudate Type Serosanguineous Serosanguineous -Wound Margin Distinct, Distinct, Outline Outline Attached Attached -Granulation Amt Medium (34-66%) Medium (34-66%) -Granulation Quality Mcdougal Mcdougal -Slough/Fibrin Yes Yes -Necrosis Amt Small (1-33%) Medium (34-66%) -Necrotic Tissue Type Adherent Slough Adherent Slough -Structure Exposed N/A N/A -Texture (Leyla-wound Skin Appearance) Assessed Assessed -Moisture (Leyla-wound Skin Appearance) Assessed Assessed -Color (Leyla-wound Skin Appearance) Assessed Erythema -Temperature (Leyla-wound Skin No Abnormality No Abnormality Appearance) (Pt Warm) (Pt Warm) -Tenderness on Palpation (Leyla-wound No No Skin Appearance) -Ulcer Cleansing Rinsed/ Wound Cleanser Irrigated with Saline -Foul Odor after Cleansing No No -Anesthetic Used 5% Lidocaine Gel #14 Right Buttock -Combined with other wound No No -Current Size (cm) - Length 1.5 0.1 -Current Size (cm) - Width 0.5 0.1 -Current Size (cm) - Depth 0.1 0.1 -Total Square Cm 0.75 0.01 -Photo Taken Yes -Tunneling No No -Undermining/Tunneling No No -Circular Undermining No No -Exudate Amt Medium Medium -Exudate Type Serosanguineous Serosanguineous -Wound Margin Distinct, Distinct, Outline Outline Attached Attached -Granulation Amt Large (67-100%) Medium (34-66%) -Granulation Quality Mcdougal Hyper- granulation, Mcdougal,Red -Slough/Fibrin Yes Yes -Necrosis Amt Medium (34-66%) Small (1-33%) -Necrotic Tissue Type Adherent Slough Adherent Slough -Structure Exposed N/A N/A -Texture (Leyla-wound Skin Appearance) Assessed, Assessed, Scarring Scarring -Moisture (Leyla-wound Skin Appearance) Assessed, Assessed Maceration -Color (Leyla-wound Skin Appearance) Assessed Assessed -Temperature (Leyla-wound Skin No Abnormality No Abnormality Appearance) (Pt Warm) (Pt Warm) -Tenderness on Palpation (Leyla-wound No No Skin Appearance) -Ulcer Cleansing Wound Cleanser Wound Cleanser -Foul Odor after Cleansing Yes No -Anesthetic Used 5% Lidocaine Gel WC - Nurse 2 - General Ulcer CM Notes Start: 10/05/24 11:05 Freq: Status: Active Protocol: Activity Type Activity Date Activity User E-sign Co-sign Detail Recorded Client Recorded Date Recorded By Document 10/05/24 11:23 DS [id number] 10/05/24 11:31 DS Document 10/12/24 11:03 BM [id number] 10/12/24 11:08 BMF 10/05/24 10/12/24 11:23 11:03 Wound Center Nurse 2 19. sacral -Time 11:23 -Correct Patient Yes -Correct Side, Site, Position Yes -Correct Procedure Yes -Procedure Performed Yes No -Type of Procedure Debridement -Clinical Debridement Subcutaneous -Tissue Removed Subcutaneous -Post Debridement (cm) - Length 1.0 0 -Post Debridement (cm) - Width 0.2 0 -Post Debridement (cm) - Depth 0.1 0 -Total Square (Post) (cm) 0.20 0 -Area of Debridement (cm) - Length 1.0 0 -Area of Debridement (cm) - Width 0.2 0 -Total Square (Area) (cm) 0.20 0 -Tunneling No -Undermining/Tunneling No -Circular Undermining No -Wound/Ulcer Outcome Not Healed Healed- Epithelialized -Ulcer Cleansing Rinsed/ Irrigated with Saline -Foul Odor after Cleansing No -Bioengineered Tissue No -Bleeding Controlled with Pressure NA -Treatment Response Procedure Tolerated Well -Debridement - Subq, 1st 20sq cm Yes #18 L Grt Toe -Time 11:25 -Correct Patient Yes -Correct Side, Site, Position Yes -Correct Procedure Yes -Procedure Performed Yes No -Type of Procedure Debridement -Clinical Debridement Subcutaneous -Tissue Removed Subcutaneous -Post Debridement (cm) - Length 0.2 0 -Post Debridement (cm) - Width 0.2 0 -Post Debridement (cm) - Depth 0.1 0 -Total Square (Post) (cm) 0.04 0 -Area of Debridement (cm) - Length 0.2 0 -Area of Debridement (cm) - Width 0.2 0 -Total Square (Area) (cm) 0.04 0 -Tunneling No -Undermining/Tunneling No -Circular Undermining No -Wound/Ulcer Outcome Not Healed Healed- Epithelialized -Ulcer Cleansing Rinsed/ Irrigated with Saline -Foul Odor after Cleansing No -Bioengineered Tissue No -Bleeding Controlled with Pressure NA -Debridement - Subq, 1st 20sq cm No #14 Right Buttock -Time 11:26 -Correct Patient Yes -Correct Side, Site, Position Yes -Correct Procedure Yes -Procedure Performed Yes -Type of Procedure Debridement -Clinical Debridement Subcutaneous -Tissue Removed Subcutaneous -Post Debridement (cm) - Length 0.9 0 -Post Debridement (cm) - Width 0.5 0 -Post Debridement (cm) - Depth 0.1 0 -Total Square (Post) (cm) 0.45 0 -Area of Debridement (cm) - Length 0.9 0 -Area of Debridement (cm) - Width 0.5 0 -Total Square (Area) (cm) 0.45 0 -Tunneling No -Undermining/Tunneling No -Circular Undermining No -Wound/Ulcer Outcome Not Healed Healed- Epithelialized -Ulcer Cleansing Rinsed/ Irrigated with Saline -Foul Odor after Cleansing No -Bioengineered Tissue Yes -Type of Bioengineered Tissue Epifix 18mm Disc -Expiration Date 05/04/29 -Product Lot Number [id number] -Percent Used 100 -Lot number of Saline Used [id number] -Bleeding Controlled with Pressure NA -Treatment Response Procedure Tolerated Well -Debridement - Subq, 1st 20sq cm No -Apply Skin Sub - 1st 25 sq cm - Legs 1 -Epifix 18mm Disc Application 1-4 3 Pain Scale: 0-10 Numeric Is Patient Pain Free? Yes Yes WC - Nurse 3 - General Ulcer D/C NN Start: 10/05/24 11:05 Freq: Status: Active Protocol: Activity Type Activity Date Activity User E-sign Co-sign Detail Recorded Client Recorded Date Recorded By Document 10/05/24 11:57 RB [id number] 10/05/24 11:59 RB Document 10/12/24 11:23 DL [id number] 10/12/24 11:25 DL 10/05/24 10/12/24 11:57 11:23 Wound Care Center Nurse 3 19. sacral -Ulcer Cleansing Rinsed/ Irrigated with Saline -Foul Odor after Cleansing No -Primary Dressing Applied Silicone Border Silicone Border Foam 4x4 Foam 4x4 -Primary Dressing Covered/Secured with Dry Gauze -Silicone Border Foam 4x4 1 1 #18 L Grt Toe -Ulcer Cleansing Rinsed/ Irrigated with Saline -Primary Dressing Applied Silicone Border Silicone Border Foam 4x4 Foam 4x4 -Other Dressing xeroform/ APPETURE PAD mepliex then apperture pad -Silicone Border Foam 4x4 1 1 #14 Right Buttock -Ulcer Cleansing Rinsed/ Irrigated with Saline -Primary Dressing Applied Silicone Border Silicone Border Foam 6x6 Foam 4x4 -Primary Dressing Covered/Secured with Dry Gauze -Silicone Border Foam 4x4 1 -Silicone Border Foam 6x6 1 -Wound Comment(s) Pt healed/ discharged. Treatment Response Procedure Procedure Tolerated Well Tolerated Well Pain Scale: 0-10 Numeric Is Patient Pain Free? Yes Yes WC - Visit Discharge Discharge Condition Stable Stable Ambulatory Status Wheelchair Wheelchair Transportation Private Auto ECF TRANS Medication Reconcilliation completed & No provided to patient/care provider Clinical Summary of Care Provided Yes Facility Type Jail Care Facility Orders Sent Yes Assessment/Plan Assessment/Plan (1) Decubitus ulcer of sacral region, stage 2: CODE(S): L89.152 - Pressure ulcer of sacral region, stage 2 PLAN: Discharge from the wound center follow-up as needed\ May pad the areas with foam pads for the next week and then she can take them off but her left toe she will always have to have a pad and aperture over top tokeep it from reopening. (2) Decubitus ulcer of toe, stage 2: CODE(S): L89.892 - Pressure ulcer of other site, stage 2 QUALIFIERS: Laterality: left Qualified Code(s): L89.892 - Pressure ulcer of other site, stage 2 (3) Chronic anemia: CODE(S): D64.9 - Anemia, unspecified (4) Decubitus ulcer of right buttock, stage 4: CODE(S): L89.314 - Pressure ulcer of right buttock, stage 4 (5) Skin ulcer of left great toe: CODE(S): L97.529 - Non-pressure chronic ulcer of other part of left foot with unspecified severity QUALIFIERS: Non-pressure ulcer stage: limited to breakdown of skin Qualified Code(s): L97.521 - Non-pressure chronic ulcer of other part of left foot limited to breakdown of skin (6) Decubitus ulcer of left ischium, stage 2: CODE(S): L89.322 - Pressure ulcer of left buttock, stage 2 PLAN: Resolved and monitor may use Skin-Prep as needed (7) Ulcer of anus: CODE(S): K62.6 - Ulcer of anus and rectum PLAN: Resolved and monitor use Skin-Prep as needed (8) Non-pressure chronic ulcer of buttock: CODE(S): L98.419 - Non-pressure chronic ulcer of buttock with unspecified severity QUALIFIERS: Non-pressure ulcer stage: limited to breakdown of skin Qualified Code(s): L98.411 - Non-pressure chronic ulcer of buttock limited to breakdown of skin 10/12/24 1135 Cosigner Signature (if applicable): CC: ~ Signed [facility]06-04-2025 Progress note Author Evelyn Robertson [facility] Note Date/Time October 05, 2024 11:52 am [facility] [address] [place] [address] Progress Note - Wound Care 10/05/24 1147 MR#: [id number] Acct: [id number] Name: ALEENA ANDREA Rep #:[id number] 22 : 1950 74 From: Evelyn Robertson NP DATA SECURITY CONSULTANT-C PCP: Dr. Casie Trevizo MD Status:REG R Location: History of Present Illness Date of Service: 10/05/24 Chief Complaint: Right buttocks decubitus ulcer History of Wound: Aleena Andrea is a 74-year-old female with a complicated pastmedical history including transverse myelitis in 2000 secondary to a viral illness. 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 Patient underwent treatment for colitis as an inpatient in March 2024 and developed a right ischial pressure ulcer. It was debrided twice at [facility]. She has been following for wound care with a nurse practitioner in the wound care center, whoreferred her to me for second opinion to see if she needs surgery. Patient lives at home in an apartment usually by herself. She does not have a pressure offloading bed. She is quite high functioning; however, she is currently in a nursing facility for wound care ever since the recent hospital admission. 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 She has an adult daughter in [place] and an adult daughter here in [place] whoare both very involved and supportive. Progress of Wound: Right buttocks wound is very improved it is much smaller in measurements and it is hyper granulated again we will pared down with a #3 curette and then continueusing probably her last EpiFix #7 to the area. The burn area on her sacral area is like a half crescent whitley shaped area that we are continue using Fibracol and it is healing well This week we used on her left great toe hallux Xeroform that worked very well for healing so we will continue with that she like that also. Subjective Subjective Patient is very pleased with outcomes Objective Data Objective Data All areas look good there is no sign of infection tolerant to treatments EpiFix's are working well we will continue with #7 to the buttocks area and Fibracol to the sacral and then Xeroform to the toe. Patient continues to do excellent at offloading and we will continues drinking Leeroy. Vital Signs: Vital Signs Temp Pulse Resp BP 96.3 F L 70 18 98/55 L 10/05/24 11:05 10/05/24 11:05 10/05/24 11:05 10/05/24 11:05 Weight: 89 lb 6.4 oz Body Mass Index (BMI) 16.9 Lab / Micro Data Attestation: I reviewed the patient's lab results. Physical Exam Const oriented x3 General Appearance: cooperative Orientation / Consciousness: oriented to person, oriented to place and oriented to time Exam Limitations: no limitations Nutritional Appearance: cachectic, underweight and thin HEENT normocephalic Head and Scalp: normal to inspection External Ear: external ears normal Eyes PERRL General Eye: normal appearance of both eyes Neck full ROM General: normal visual inspection Resp normal respiratory effort Effort and Inspection: able to speak in complete sentences Auscultation: clear to auscultation bilaterally Cardio regular rate and regular rhythm Palpation: normal PMI Rate: regular rate Rhythm: regular rhythm GI Rectal Exam: visual inspection abnormal, fistula and other Other Details: Open wound left buttocks and perirectal may be fistula going on. Back/Spine Back/Spine Narrative: Paralysis from waist down Cervical Spine: cervical ROM normal Pelvis: buttocks abnormal right and other soft tissue findings Wound on her coccyx area Skin no rashes or lesions noted Skin Narrative: Open wounds on left buttocks with positive depth and infection possible sepsis sacral area open area nonhealing and perirectal area possibly a fistula. Wounds: wounds noted Wound Narrative: Open wound on coccyx stage II Right buttocks wound stage IV Neuro oriented x3 Psych Appearance: grossly normal Attitude: calm Activity / Motor Behavior: appropriate eye contact Speech: normal speech Mood & Affect: euthymic mood Thought Process: normal thought process Thought Content: normal thought content Attention / Concentration: attention grossly intact Memory / Cognition: memory grossly intact Insight: insight good Judgement: judgement good Debridement Note Debridement Note Wound debrided: Right buttocks Laterality: Right Wound Grade/Stage: Stage IV Type of Debridement: Excisional debridement Anesthesia Used: 5% Lidocaine Gel Depth: in the subcutaneous layer Percentage of wound debrided: 100 Instrument Used: 5mm curette Tissue Removed: Fibrin Severity: Fat Layer Exposed Amount of bleeding with debridement: Mild Bleeding Controlled with: Compression and gauze Patient tolerated procedure: Patient tolerated procedure well Post-Debridement Measurements and Additional Note: Post-Debridement Measurements/Treatment MARY - Nurse 1 - General Ulcer Assessment Start: 10/05/24 11:05 Freq: Status: Active Protocol: JOSEPHINE Activity Type Activity Date Activity User E-sign Co-sign Detail Recorded Client Recorded Date Recorded By Document 10/05/24 11:05 LAURENCE [id number] 10/05/24 11:09 LAURENCE 10/05/24 11:05 - Today's Visit Information Type of service Follow-up Visit (Physician/LIAISON OFFICER ) Arrival Mode Wheelchair Transfer Assistance Manual Patient Identification Verified (Name & Yes ) Patient Requires Transmission-Based No Precautions Height and Weight Body Mass Index (BMI) 16.9 BMI Classification Underweight Vital Signs Temperature (97.8 F-99.1 F) 96.3 F L Temperature Source Temporal Pulse Rate (60-100) 70 Pulse Location Monitor Respiratory Rate (12-18) 18 Respiratory rate source Observation Blood Pressure (90/60-120/80) 98/55 L Blood Pressure Mean (mm Hg) 69 Source Monitor Position Sitting Blood Pressure Location Left Arm History Since Last Visit- (Skip if this is Patient's initial visit) Have you changed medications since your No last visit? Any new allergies or adverse reactions No Had a fall/change in ADL's that may No increase risk of falls Signs or symptoms of abuse and/or No neglect since last visit Have you been in the hospital since your No last visit? Has dressing in place as prescribed Yes Has compression in place as prescribed N/A Has offloadiing in place as prescribed N/A Experienced any changes in pain level or No management Left Footwear Regular Shoe Right Footwear Regular Shoe Pain Scale: 0-10 Numeric Is Patient Pain Free? Yes WC - Nurse 1 - General Ulcer Measurement Start: 10/05/24 11:05 Freq: Status: Active Protocol: Activity Type Activity Date Activity User E-sign Co-sign Detail Recorded Client Recorded Date Recorded By Document 10/05/24 11:05 RB [id number] 10/05/24 11:09 RB 10/05/24 11:05 Wound Center Nurse 1 19. sacral -Combined with other wound No -Current Size (cm) - Length 1 -Current Size (cm) - Width 0.6 -Current Size (cm) - Depth 0.1 -Total Square Cm 0.6 -Tunneling No -Undermining/Tunneling No -Circular Undermining No -Exudate Amt Medium -Exudate Type Serosanguineous -Wound Margin Distinct, Outline Attached -Granulation Amt Large (67-100%) -Granulation Quality Mcdougal -Slough/Fibrin Yes -Necrosis Amt Small (1-33%) -Necrotic Tissue Type Adherent Slough -Structure Exposed N/A -Texture (Leyla-wound Skin Appearance) Assessed -Moisture (Leyla-wound Skin Appearance) Assessed -Color (Leyla-wound Skin Appearance) Assessed, Erythema -Temperature (Leyla-wound Skin No Abnormality Appearance) (Pt Warm) -Tenderness on Palpation (Leyla-wound No Skin Appearance) -Ulcer Cleansing Wound Cleanser -Foul Odor after Cleansing No -Anesthetic Used 5% Lidocaine Gel #18 L Grt Toe -Combined with other wound No -Current Size (cm) - Length 0.1 -Current Size (cm) - Width 0.1 -Current Size (cm) - Depth 0.1 -Total Square Cm 0.01 -Tunneling No -Undermining/Tunneling No -Circular Undermining No -Exudate Amt Medium -Exudate Type Serosanguineous -Wound Margin Distinct, Outline Attached -Granulation Amt Medium (34-66%) -Granulation Quality Mcdougal -Slough/Fibrin Yes -Necrosis Amt Small (1-33%) -Necrotic Tissue Type Adherent Slough -Structure Exposed N/A -Texture (Leyla-wound Skin Appearance) Assessed -Moisture (Leyla-wound Skin Appearance) Assessed -Color (Leyla-wound Skin Appearance) Assessed -Temperature (Leyla-wound Skin No Abnormality Appearance) (Pt Warm) -Tenderness on Palpation (Leyla-wound No Skin Appearance) -Ulcer Cleansing Rinsed/ Irrigated with Saline -Foul Odor after Cleansing No -Anesthetic Used 5% Lidocaine Gel #14 Right Buttock -Combined with other wound No -Current Size (cm) - Length 1.5 -Current Size (cm) - Width 0.5 -Current Size (cm) - Depth 0.1 -Total Square Cm 0.75 -Tunneling No -Undermining/Tunneling No -Circular Undermining No -Exudate Amt Medium -Exudate Type Serosanguineous -Wound Margin Distinct, Outline Attached -Granulation Amt Large (67-100%) -Granulation Quality Mcdougal -Slough/Fibrin Yes -Necrosis Amt Medium (34-66%) -Necrotic Tissue Type Adherent Slough -Structure Exposed N/A -Texture (Leyla-wound Skin Appearance) Assessed, Scarring -Moisture (Leyla-wound Skin Appearance) Assessed, Maceration -Color (Leyla-wound Skin Appearance) Assessed -Temperature (Leyla-wound Skin No Abnormality Appearance) (Pt Warm) -Tenderness on Palpation (Leyla-wound No Skin Appearance) -Ulcer Cleansing Wound Cleanser -Foul Odor after Cleansing Yes -Anesthetic Used 5% Lidocaine Gel WC - Nurse 2 - General Ulcer CM Notes Start: 10/05/24 11:05 Freq: Status: Active Protocol: Activity Type Activity Date Activity User E-sign Co-sign Detail Recorded Client Recorded Date Recorded By Document 10/05/24 11:23 DS [id number] 10/05/24 11:31 DS 10/05/24 11:23 Wound Center Nurse 2 19. sacral -Time 11:23 -Correct Patient Yes -Correct Side, Site, Position Yes -Correct Procedure Yes -Procedure Performed Yes -Type of Procedure Debridement -Clinical Debridement Subcutaneous -Tissue Removed Subcutaneous -Post Debridement (cm) - Length 1.0 -Post Debridement (cm) - Width 0.2 -Post Debridement (cm) - Depth 0.1 -Total Square (Post) (cm) 0.20 -Area of Debridement (cm) - Length 1.0 -Area of Debridement (cm) - Width 0.2 -Total Square (Area) (cm) 0.20 -Tunneling No -Undermining/Tunneling No -Circular Undermining No -Wound/Ulcer Outcome Not Healed -Ulcer Cleansing Rinsed/ Irrigated with Saline -Foul Odor after Cleansing No -Bioengineered Tissue No -Bleeding Controlled with Pressure -Treatment Response Procedure Tolerated Well -Debridement - Subq, 1st 20sq cm Yes #18 L Grt Toe -Time 11:25 -Correct Patient Yes -Correct Side, Site, Position Yes -Correct Procedure Yes -Procedure Performed Yes -Type of Procedure Debridement -Clinical Debridement Subcutaneous -Tissue Removed Subcutaneous -Post Debridement (cm) - Length 0.2 -Post Debridement (cm) - Width 0.2 -Post Debridement (cm) - Depth 0.1 -Total Square (Post) (cm) 0.04 -Area of Debridement (cm) - Length 0.2 -Area of Debridement (cm) - Width 0.2 -Total Square (Area) (cm) 0.04 -Tunneling No -Undermining/Tunneling No -Circular Undermining No -Wound/Ulcer Outcome Not Healed -Ulcer Cleansing Rinsed/ Irrigated with Saline -Foul Odor after Cleansing No -Bioengineered Tissue No -Bleeding Controlled with Pressure -Debridement - Subq, 20sq cm No #14 Right Buttock -Time 11:26 -Correct Patient Yes -Correct Side, Site, Position Yes -Correct Procedure Yes -Procedure Performed Yes -Type of Procedure Debridement -Clinical Debridement Subcutaneous -Tissue Removed Subcutaneous -Post Debridement (cm) - Length 0.9 -Post Debridement (cm) - Width 0.5 -Post Debridement (cm) - Depth 0.1 -Total Square (Post) (cm) 0.45 -Area of Debridement (cm) - Length 0.9 -Area of Debridement (cm) - Width 0.5 -Total Square (Area) (cm) 0.45 -Tunneling No -Undermining/Tunneling No -Circular Undermining No -Wound/Ulcer Outcome Not Healed -Ulcer Cleansing Rinsed/ Irrigated with Saline -Foul Odor after Cleansing No -Bioengineered Tissue Yes -Type of Bioengineered Tissue Epifix 18mm Disc -Expiration Date 05/04/29 -Product Lot Number [id number] -Percent Used 100 -Lot number of Saline Used [id number] -Bleeding Controlled with Pressure -Treatment Response Procedure Tolerated Well -Debridement - Subq, 1st 20sq cm No -Apply Skin Sub - 1st 25 sq cm - Legs 1 -Epifix 18mm Disc Application 1-4 3 Pain Scale: 0-10 Numeric Is Patient Pain Free? Yes Additional Wound Wound debrided: Left great toe hallux Laterality: Left Wound Grade/Stage: Stage II Type of Debridement: Excisional debridement Anesthesia Used: 5% Lidocaine Gel Depth: Down to and including healthy tissue Percentage of wound debrided: 100 Instrument Used: - (Using gauze) Tissue Removed: Fibrin Severity: Limited To Skin Breakdown Amount of bleeding with debridement: Moderate Bleeding Controlled with: Compression and gauze Patient tolerated procedure: Patient tolerated procedure well Additional Wound Wound debrided: Left sacral blister Type of Debridement: Excisional debridement Anesthesia Used: 5% Lidocaine Gel Depth: Down to and including healthy tissue Percentage of wound debrided: 100 Instrument Used: 5mm curette Tissue Removed: Fibrin Severity: Limited To Skin Breakdown Amount of bleeding with debridement: Mild Bleeding Controlled with: Compression and gauze Patient tolerated procedure: Patient tolerated procedure well Assessment/Plan Assessment/Plan (1) Decubitus ulcer of sacral region, stage 2: CODE(S): L89.152 - Pressure ulcer of sacral region, stage 2 PLAN: Wound resolved and patient is to just sure prep pad and protect (2) Decubitus ulcer of toe, stage 2: CODE(S): L89.892 - Pressure ulcer of other site, stage 2 QUALIFIERS: Laterality: left Qualified Code(s): L89.892 - Pressure ulcer of other site, stage 2 PLAN: Wash area with Dial soap and pat dry with water and apply Xeroform and Adaptic with a foam dressing over top every day stasis pad on top full coverage to the wound bed Follow-up 1 week (3) Chronic anemia: CODE(S): D64.9 - Anemia, unspecified PLAN: Continue ferrous sulfate 325 mg to twice a day with stool softeners B12 injections 1000 mcg q. weekly Improved immensely she said at normal rate at this time (4) Decubitus ulcer of right buttock, stage 4: CODE(S): L89.314 - Pressure ulcer of right buttock, stage 4 PLAN: EpiFix #7 was applied to the right buttocks using Adaptic touch and Steri-Strips hold in place with padded dressing over top. (5) Skin ulcer of left great toe: CODE(S): L97.529 - Non-pressure chronic ulcer of other part of left foot with unspecified severity QUALIFIERS: Non-pressure ulcer stage: limited to breakdown of skin Qualified Code(s): L97.521 - Non-pressure chronic ulcer of other part of left foot limited to breakdown of skin (6) Decubitus ulcer of left ischium, stage 2: CODE(S): L89.322 - Pressure ulcer of left buttock, stage 2 PLAN: Resolved and monitor may use Skin-Prep as needed (7) Ulcer of anus: CODE(S): K62.6 - Ulcer of anus and rectum PLAN: Resolved and monitor use Skin-Prep as needed (8) Non-pressure chronic ulcer of buttock: CODE(S): L98.419 - Non-pressure chronic ulcer of buttock with unspecified severity QUALIFIERS: Non-pressure ulcer stage: limited to breakdown of skin Qualified Code(s): L98.411 - Non-pressure chronic ulcer of buttock limited to breakdown of skin PLAN: Wash area with antibacterial soap and water and apply Fibracol with Adaptic over top and a foam SAP [place] dressing every day follow-up in 1 week 10/05/24 1152 <Electronically signed by Evelyn Robertson NP DATA SECURITY CONSULTANT-C> Cosigner Signature (if applicable): CC: ~ Signed [facility] Work Phone: [phone]) 953-350106-04-2025 Progress note [facility] [address] [place] [id number] Progress Note - Wound Care 10/05/24 1147 MR#: [id number] Acct: [id number] Name: ALEENA ANDREA Rep #:[id number] 22 : 1950 74 From: Evelyn Robertson NP DATA SECURITY CONSULTANT-C PCP: Dr. 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 Patient underwent treatment for colitisas an inpatient in March 2024 and developed a right ischial pressure ulcer. It was debrided twice at [facility]. She has been following for wound care with a nurse practitioner in the wound care center, whoreferred her to me for second opinion to see if she needs surgery. Patient lives at home in an apartment usually by herself. She does not have a pressure offloading bed. She is quite highfunctioning; however, she is currently in a nursing facility for wound care ever since the recent hospital admission. 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 She has an adult daughter in [place] and an adult daughter here in [place] whoare both very involved and supportive. Progress of Wound: Right buttocks wound is very improved it is much smaller in measurements and it is hyper granulatedagain we will pared down with a #3 curette and then continueusing probably her last EpiFix #7 to the area. The burn area on her sacral area is like a half crescent whitley shaped area that we are continue using Fibracol and it is healing well This week we used on her left great toe hallux Xeroform that worked very well for healing so we will continue with that she like that also. Subjective Subjective Patient is very pleased with outcomes Objective Data Objective Data All areas look good there is no sign of infection tolerant to treatments EpiFix's are working well we will continue with #7 to the buttocks area and Fibracol to the sacral and then Xeroform to the toe. Patient continues to do excellent at offloading and we will continues drinking Leeroy. Vital Signs: Vital Signs Temp Pulse Resp BP 96.3 F L 70 18 98/55 L 10/05/24 11:05 10/05/24 11:05 10/05/24 11:10/05/24 11:05 Weight: 89 lb 6.4 oz Body Mass Index (BMI) 16.9 Lab / Micro Data Attestation: I reviewed the patient's lab results. Physical Exam Const oriented x3 General Appearance: cooperative Orientation / Consciousness: oriented to person, oriented to place and oriented to time Exam Limitations: no limitations Nutritional Appearance: cachectic, underweight and thin HEENT normocephalic Head and Scalp: normal to inspection External Ear: external ears normal Eyes PERRL General Eye: normal appearance of both eyes Neck full ROM General: normal visual inspection Resp normal respiratory effort Effort and Inspection: able to speak in complete sentences Auscultation: clear to auscultation bilaterally Cardio regular rate and regular rhythm Palpation: normal PMI Rate: regular rate Rhythm: regular rhythm GI Rectal Exam: visual inspection abnormal, fistula and other Other Details: Open wound left buttocks and perirectal may be fistula going on. Back/Spine Back/Spine Narrative: Paralysis from waist down Cervical Spine: cervical ROM normal Pelvis: buttocks abnormal right and other soft tissue findings Wound on her coccyx area Skin no rashes or lesions noted Skin Narrative: Open wounds on left buttocks with positive depth and infection possible sepsis sacral area open area nonhealing and perirectal area possibly a fistula. Wounds: wounds noted Wound Narrative: Open wound on coccyx stage II Right buttocks wound stage IV Neuro oriented x3 Psych Appearance: grossly normal Attitude: calm Activity / Motor Behavior: appropriate eye contact Speech: normal speech Mood & Affect: euthymic mood Thought Process: normal thought process Thought Content: normal thought content Attention / Concentration: attention grossly intact Memory / Cognition: memory grossly intact Insight: insight good Judgement: judgement good Debridement Note Debridement Note Wound debrided: Right buttocks Laterality: Right Wound Grade/Stage: Stage IV Type of Debridement: Excisional debridement Anesthesia Used: 5% Lidocaine Gel Depth: in the subcutaneous layer Percentage of wound debrided: 100 Instrument Used: 5mm curette Tissue Removed: Fibrin Severity: Fat Layer Exposed Amount of bleeding with debridement: Mild Bleeding Controlled with: Compression and gauze Patient tolerated procedure: Patient tolerated procedure well Post-Debridement Measurements and Additional Note: Post-Debridement Measurements/Treatment MARY - Nurse 1 - General Ulcer Assessment Start: 10/05/24 11:05 Freq: Status: Active Protocol: JOSEPHINE Activity Type Activity Date Activity User E-sign Co-sign Detail Recorded Client Recorded Date Recorded By Document 10/05/24 11:05 LAURENCE [id number] 10/05/24 11:09 LAURENCE 10/05/24 11:05 MARY - Today's Visit Information Type of service Follow-up Visit (Physician/LIAISON OFFICER ) Arrival Mode Wheelchair Transfer Assistance Manual Patient Identification Verified (Name & Yes ) Patient Requires Transmission-Based No Precautions Height and Weight Body Mass Index (BMI) 16.9 BMI Classification Underweight Vital Signs Temperature (97.8 F-99.1 F) 96.3 F L Temperature Source Temporal Pulse Rate (60-100) 70 Pulse Location Monitor Respiratory Rate (12-18) 18 Respiratory rate source Observation Blood Pressure (90/60-120/80) 98/55 L Blood Pressure Mean (mm Hg) 69 Source Monitor Position Sitting Blood Pressure Location Left Arm History Since Last Visit- (Skip if this is Patient's initial visit) Have you changed medications since your No last visit? Any new allergies or adverse reactions No Had a fall/change in ADL's that may No increase risk of falls Signs or symptoms of abuse and/or No neglect since last visit Have you been in the hospital since your No last visit? Has dressing in place as prescribed Yes Has compression in place as prescribed N/A Has offloadiing in place as prescribed N/A Experienced any changes in pain level or No management Left Footwear Regular Shoe Right Footwear Regular Shoe Pain Scale: 0-10 Numeric Is Patient Pain Free? Yes WC - Nurse 1 - General Ulcer Measurement Start: 10/05/24 11:05 Freq: Status: Active Protocol: Activity Type Activity Date Activity User E-sign Co-sign Detail Recorded Client Recorded Date Recorded By Document 10/05/24 11:05 LAURENCE [id number] 10/05/24 11:09 RB 10/05/24 11:05 Wound Center Nurse 1 19. sacral -Combined with other wound No -Current Size (cm) - Length 1 -Current Size (cm) - Width 0.6 -Current Size (cm) - Depth 0.1 -Total Square Cm 0.6 -Tunneling No -Undermining/Tunneling No -Circular Undermining No -Exudate Amt Medium -Exudate Type Serosanguineous -Wound Margin Distinct, Outline Attached -Granulation Amt Large (67-100%) -Granulation Quality Mcdougal -Slough/Fibrin Yes -Necrosis Amt Small (1-33%) -Necrotic Tissue Type Adherent Slough -Structure Exposed N/A -Texture (Leyla-wound Skin Appearance) Assessed -Moisture (Leyla-wound Skin Appearance) Assessed -Color (Leyla-wound Skin Appearance) Assessed, Erythema -Temperature (Leyla-wound Skin No Abnormality Appearance) (Pt Warm) -Tenderness on Palpation (Leyla-wound No Skin Appearance) -Ulcer Cleansing Wound Cleanser -Foul Odor after Cleansing No -Anesthetic Used 5% Lidocaine Gel #18 L Grt Toe -Combined with other wound No -Current Size (cm) - Length 0.1 -Current Size (cm) - Width 0.1 -Current Size (cm) - Depth 0.1 -Total Square Cm 0.01 -Tunneling No -Undermining/Tunneling No -Circular Undermining No -Exudate Amt Medium -Exudate Type Serosanguineous -Wound Margin Distinct, Outline Attached -Granulation Amt Medium (34-66%) -Granulation Quality Mcdougal -Slough/Fibrin Yes -Necrosis Amt Small (1-33%) -Necrotic Tissue Type Adherent Slough -Structure Exposed N/A -Texture (Leyla-wound Skin Appearance) Assessed -Moisture (Leyla-wound Skin Appearance) Assessed -Color (Leyla-wound Skin Appearance) Assessed -Temperature (Leyla-wound Skin No Abnormality Appearance) (Pt Warm) -Tenderness on Palpation (Leyla-wound No Skin Appearance) -Ulcer Cleansing Rinsed/ Irrigated with Saline -Foul Odor after Cleansing No -Anesthetic Used 5% Lidocaine Gel #14 Right Buttock -Combined with other wound No -Current Size (cm) - Length 1.5 -Current Size (cm) - Width 0.5 -Current Size (cm) - Depth 0.1 -Total Square Cm 0.75 -Tunneling No -Undermining/Tunneling No -Circular Undermining No -Exudate Amt Medium -Exudate Type Serosanguineous -Wound Margin Distinct, Outline Attached -Granulation Amt Large (67-100%) -Granulation Quality Mcdougal -Slough/Fibrin Yes -Necrosis Amt Medium (34-66%) -Necrotic Tissue Type Adherent Slough -Structure Exposed N/A -Texture (Leyla-wound Skin Appearance) Assessed, Scarring -Moisture (Leyla-wound Skin Appearance) Assessed, Maceration -Color (Leyla-wound Skin Appearance) Assessed -Temperature (Leyla-wound Skin No Abnormality Appearance) (Pt Warm) -Tenderness on Palpation (Leyla-wound No Skin Appearance) -Ulcer Cleansing Wound Cleanser -Foul Odor after Cleansing Yes -Anesthetic Used 5% Lidocaine Gel WC - Nurse 2 - General Ulcer CM Notes Start: 10/05/24 11:05 Freq: Status: Active Protocol: Activity Type Activity Date Activity User E-sign Co-sign Detail Recorded Client Recorded Date Recorded By Document 10/05/24 11:23 DS [id number] 10/05/24 11:31 DS 10/05/24 11:23 Wound Center Nurse 2 19. sacral -Time 11:23 -Correct Patient Yes -Correct Side, Site, Position Yes -Correct Procedure Yes -Procedure Performed Yes -Type of Procedure Debridement -Clinical Debridement Subcutaneous -Tissue Removed Subcutaneous -Post Debridement (cm) - Length 1.0 -Post Debridement (cm) - Width 0.2 -Post Debridement (cm) - Depth 0.1 -Total Square (Post) (cm) 0.20 -Area of Debridement (cm) - Length 1.0 -Area of Debridement (cm) - Width 0.2 -Total Square (Area) (cm) 0.20 -Tunneling No -Undermining/Tunneling No -Circular Undermining No -Wound/Ulcer Outcome Not Healed -Ulcer Cleansing Rinsed/ Irrigated with Saline -Foul Odor after Cleansing No -Bioengineered Tissue No -Bleeding Controlled with Pressure -Treatment Response Procedure Tolerated Well -Debridement - Subq, 1st 20sq cm Yes #18 L Grt Toe -Time 11:25 -Correct Patient Yes -Correct Side, Site, Position Yes -Correct Procedure Yes -Procedure Performed Yes -Type of Procedure Debridement -Clinical Debridement Subcutaneous -Tissue Removed Subcutaneous -Post Debridement (cm) - Length 0.2 -Post Debridement (cm) - Width 0.2 -Post Debridement (cm) - Depth 0.1 -Total Square (Post) (cm) 0.04 -Area of Debridement (cm) - Length 0.2 -Area of Debridement (cm) - Width 0.2 -Total Square (Area) (cm) 0.04 -Tunneling No -Undermining/Tunneling No -Circular Undermining No -Wound/Ulcer Outcome Not Healed -Ulcer Cleansing Rinsed/ Irrigated with Saline -Foul Odor after Cleansing No -Bioengineered Tissue No -Bleeding Controlled with Pressure -Debridement - Subq, 1st 20sq cm No #14 Right Buttock -Time 11:26 -Correct Patient Yes -Correct Side, Site, Position Yes -Correct Procedure Yes -Procedure Performed Yes -Type of Procedure Debridement -Clinical Debridement Subcutaneous -Tissue Removed Subcutaneous -Post Debridement (cm) - Length 0.9 -Post Debridement (cm) - Width 0.5 -Post Debridement (cm) - Depth 0.1 -Total Square (Post) (cm) 0.45 -Area of Debridement (cm) - Length 0.9 -Area of Debridement (cm) - Width 0.5 -Total Square (Area) (cm) 0.45 -Tunneling No -Undermining/Tunneling No -Circular Undermining No -Wound/Ulcer Outcome Not Healed -Ulcer Cleansing Rinsed/ Irrigated with Saline -Foul Odor after Cleansing No -Bioengineered Tissue Yes -Type of Bioengineered Tissue Epifix 18mm Disc -Expiration Date 05/04/29 -Product Lot Number [id number] -Percent Used 100 -Lot number of Saline Used [id number] -Bleeding Controlled with Pressure -Treatment Response Procedure Tolerated Well -Debridement - Subq, 1st 20sq cm No -Apply Skin Sub - 1st 25 sq cm - Legs 1 -Epifix 18mm Disc Application 1-4 3 Pain Scale: 0-10 Numeric Is Patient Pain Free? Yes Additional Wound Wound debrided: Left great toe hallux Laterality: Left Wound Grade/Stage: Stage II Type of Debridement: Excisional debridement Anesthesia Used: 5% Lidocaine Gel Depth: Down to and including healthy tissue Percentage of wound debrided: 100 Instrument Used: - (Using gauze) Tissue Removed: Fibrin Severity: Limited To Skin Breakdown Amount of bleeding with debridement: Moderate Bleeding Controlled with: Compression and gauze Patient tolerated procedure: Patient tolerated procedure well Additional Wound Wound debrided: Left sacral blister Type of Debridement: Excisional debridement Anesthesia Used: 5% Lidocaine Gel Depth: Down to and including healthy tissue Percentage of wound debrided: 100 Instrument Used: 5mm curette Tissue Removed: Fibrin Severity: Limited To Skin Breakdown Amount of bleeding with debridement: Mild Bleeding Controlled with: Compression and gauze Patient tolerated procedure: Patient tolerated procedure well Assessment/Plan Assessment/Plan (1) Decubitus ulcer of sacral region, stage 2: CODE(S): L89.152 - Pressure ulcer of sacral region, stage 2 PLAN: Wound resolved and patient is to just sure prep pad and protect (2) Decubitus ulcer of toe, stage 2: CODE(S): L89.892 - Pressure ulcer of other site, stage 2 QUALIFIERS: Laterality: left Qualified Code(s): L89.892 - Pressure ulcer of other site, stage 2 PLAN: Wash area with Dial soap and pat dry with water and apply Xeroform and Adaptic with a foam dressing over top every day stasis pad on top full coverage to the wound bed Follow-up 1 week (3) Chronic anemia: CODE(S): D64.9 - Anemia, unspecified PLAN: Continue ferrous sulfate 325 mg to twice a day with stool softeners B12 injections 1000 mcg q. weekly Improved immensely she said at normal rate at this time (4) Decubitus ulcer of right buttock, stage 4: CODE(S): L89.314 - Pressure ulcer of right buttock, stage 4 PLAN: EpiFix #7 was applied to the right buttocks using Adaptic touch and Steri- Strips hold in place with padded dressing over top. (5) Skin ulcer of left great toe: CODE(S): L97.529 - Non-pressure chronic ulcer of other part of left foot with unspecified severity QUALIFIERS: Non-pressure ulcer stage: limited to breakdown of skin Qualified Code(s): L97.521 - Non-pressure chronic ulcer of other part of left foot limited to breakdown of skin (6) Decubitus ulcer of left ischium, stage 2: CODE(S): L89.322 - Pressure ulcer of left buttock, stage 2 PLAN: Resolved and monitor may use Skin-Prep as needed (7) Ulcer of anus: CODE(S): K62.6 - Ulcer of anus and rectum PLAN: Resolved and monitor use Skin-Prep as needed (8) Non-pressure chronic ulcer of buttock: CODE(S): L98.419 - Non-pressure chronic ulcer of buttock with unspecified severity QUALIFIERS: Non-pressure ulcer stage: limited to breakdown of skin Qualified Code(s): L98.411 - Non-pressure chronic ulcer of buttock limited to breakdown of skin PLAN: Wash area with antibacterial soap and water and apply Fibracol with Adaptic over top and a foam SAP [place] dressing every day follow-up in 1 week 10/05/24 1152 Cosigner Signature (if applicable): CC: ~ Signed [facility]05-28-2025 Progress note Author Evelyn Robertson [facility] Note Date/Time September 28, 2024 12:38 pm [facility] [address] [place] [address] Progress Note - Wound Care 09/28/24 1225 MR#: [id number] Acct: [id number] Name: ALEENA ANDREA Rep #:[id number] 11 : 1950 74 From: Evelyn Robertson NP DATA SECURITY CONSULTANT-C PCP: Dr. 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 Patient underwent treatment for colitis as an inpatient in March 2024 and developed a right ischial pressure ulcer. It was debrided twice at [facility]. She has been following for wound care with a nurse practitioner in the wound care center, whoreferred her to me for second opinion to see if she needs surgery. Patient lives at home in an apartment usually by herself. She does not have a pressure offloading bed. She is quite high functioning; however, she is currently in a nursing facility for wound care ever since the recent hospital admission. 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 She has an adult daughter in [place] and an adult daughter here in [place] whoare both very involved and supportive. Progress of Wound: Right ischium wound is healed. She developed a blister from putting a heating pad on her sacral Area because she was cold. The size of the area is about the size of a quarter . We continue to use fibber call with Adaptic and absorbent dressing over top The left great toe hallux is open but improved this week with the aperture around it. Again and we feel it is from her laying on her stomach and she is not padding it properly and putting a shoe or a sock or a foam dressing over topof that the protected and she is opening it. We will change to Xeroform and Adaptic and maybe use some stasis pads over to see if that helps protect it. Right buttocks doing well on the epi fix again and we will continue with #6 today much smaller just needs to get skin over top. Subjective Subjective Patient is pleased with outcomes Objective Data Objective Data All areas are improving buttocks looks really good we will continue using EpiFixtill finishes it but the layer of skin everything is down to just top layer skin. No sign of infections patient is eating her and drinking all of her supplemental drinks and trying against offloading very well. Vital Signs: Vital Signs Temp Pulse Resp BP 97.4 F L 61 18 113/65 09/28/24 11:01 09/28/24 11:01 09/28/24 11:01 09/28/24 11:01 Weight: 89 lb 6.4 oz Body Mass Index (BMI) 16.9 Physical Exam Const oriented x3 General Appearance: cooperative Orientation / Consciousness: oriented to person, oriented to place and oriented to time Exam Limitations: no limitations Nutritional Appearance: cachectic, underweight and thin HEENT normocephalic Head and Scalp: normal to inspection External Ear: external ears normal Eyes PERRL General Eye: normal appearance of both eyes Neck full ROM General: normal visual inspection Resp normal respiratory effort Effort and Inspection: able to speak in complete sentences Auscultation: clear to auscultation bilaterally Cardio regular rate and regular rhythm Palpation: normal PMI Rate: regular rate Rhythm: regular rhythm GI Rectal Exam: visual inspection abnormal, fistula and other Other Details: Open wound left buttocks and perirectal may be fistula going on. Back/Spine Back/Spine Narrative: Paralysis from waist down Cervical Spine: cervical ROM normal Pelvis: buttocks abnormal right and other soft tissue findings Wound on her coccyx area Skin no rashes or lesions noted Skin Narrative: Open wounds on left buttocks with positive depth and infection possible sepsis sacral area open area nonhealing and perirectal area possibly a fistula. Wounds: wounds noted Wound Narrative: Open wound on coccyx stage II Right buttocks wound stage IV Neuro oriented x3 Psych Appearance: grossly normal Attitude: calm Activity / Motor Behavior: appropriate eye contact Speech: normal speech Mood & Affect: euthymic mood Thought Process: normal thought process Thought Content: normal thought content Attention / Concentration: attention grossly intact Memory / Cognition: memory grossly intact Insight: insight good Judgement: judgement good Debridement Note Debridement Note Wound debrided: Right buttocks Laterality: Right Wound Grade/Stage: Stage IV Type of Debridement: Selective debridement Anesthesia Used: 5% Lidocaine Gel Depth: in the subcutaneous layer Percentage of wound debrided: 100 Instrument Used: 5mm curette Tissue Removed: Fibrin Severity: Fat Layer Exposed Amount of bleeding with debridement: Mild Bleeding Controlled with: Compression and gauze Patient tolerated procedure: Patient tolerated procedure well Post-Debridement Measurements and Additional Note: Post-Debridement Measurements/Treatment - Nurse 1 - General Ulcer Assessment Start: 09/07/24 10:22 Freq: Status: Active Protocol: JOSEPHINE Activity Type Activity Date Activity User E-sign Co-sign Detail Recorded Client Recorded Date Recorded By Document 09/07/24 10:22 DL [id number] 09/07/24 10:35 DL Document 09/14/24 10:49 RB [id number] 09/14/24 10:53 RB Document 09/21/24 10:42 DL [id number] 09/21/24 10:51 DL Document 09/28/24 11:01 RB [id number] 09/28/24 11:05 RB 09/07/24 09/14/24 09/21/24 10:22 10:49 10:42 - Today's Visit Information Type of service Follow-up Visit Follow-up Visit Follow-up Visit (Physician/LIAISON OFFICER (Physician/LIAISON OFFICER (Physician/LIAISON OFFICER ) ) ) Arrival Mode Wheelchair Wheelchair Wheelchair Transfer Assistance Manual Manual Transfer Assist (Other) x2 x2 Patient Identification Verified (Name & Yes Yes Yes ) Patient Requires Transmission-Based No No No Precautions Height and Weight Body Mass Index (BMI) 16.9 16.9 16.9 BMI Classification Underweight Underweight Underweight Vital Signs Temperature (97.8 F-99.1 F) 97.8 F 97.6 F L 97.2 F L Temperature Source Temporal Temporal Temporal Pulse Rate (60-100) 79 61 92 Pulse Location Monitor Monitor Monitor Respiratory Rate (12-18) 16 18 18 Respiratory rate source Observation Observation Observation Blood Pressure (90/60-120/80) 128/72 H 130/73 H 122/71 H Blood Pressure Mean (mm Hg) 90 92 88 Source Monitor Monitor Monitor Position Semi-Fowlers Blood Pressure Location Right Arm History Since Last Visit- (Skip if this is Patient's initial visit) Have you changed medications since your No No No last visit? Any new allergies or adverse reactions No No No Had a fall/change in ADL's that may No No No increase risk of falls Signs or symptoms of abuse and/or No No No neglect since last visit Have you been in the hospital since your No No No last visit? Has dressing in place as prescribed Yes Yes Yes Has compression in place as prescribed N/A N/A Yes Has offloadiing in place as prescribed Yes N/A N/A Experienced any changes in pain level or No No No management Pain Scale: 0-10 Numeric Is Patient Pain Free? Yes No Yes FROM WAIST DOWN TO FEET -Description Sharp -Intensity 7 -Duration (hours) Chronic -Pain Behavior No Change in Behavior -Pain Aggravating Factors Changing Position -Alleviating Factors/Interventions Medication -Effectiveness of Alleviating Factor/ Moderately Intervention effective 09/28/24 11:01 WC - Today's Visit Information Type of service Follow-up Visit (Physician/LIAISON OFFICER ) Arrival Mode Wheelchair Transfer Assistance Manual Transfer Assist (Other) Patient Identification Verified (Name & Yes ) Patient Requires Transmission-Based No Precautions Height and Weight Body Mass Index (BMI) 16.9 BMI Classification Underweight Vital Signs Temperature (97.8 F-99.1 F) 97.4 F L Temperature Source Temporal Pulse Rate (60-100) 61 Pulse Location Monitor Respiratory Rate (12-18) 18 Respiratory rate source Observation Blood Pressure (90/60-120/80) 113/65 Blood Pressure Mean (mm Hg) 81 Source Monitor Position Semi-Fowlers Blood Pressure Location Left Arm History Since Last Visit- (Skip if this is Patient's initial visit) Have you changed medications since your No last visit? Any new allergies or adverse reactions No Had a fall/change in ADL's that may No increase risk of falls Signs or symptoms of abuse and/or No neglect since last visit Have you been in the hospital since your No last visit? Has dressing in place as prescribed Yes Has compression in place as prescribed N/A Has offloadiing in place as prescribed N/A Experienced any changes in pain level or No management Pain Scale: 0-10 Numeric Is Patient Pain Free? Yes FROM WAIST DOWN TO FEET -Description -Intensity -Duration (hours) -Pain Behavior -Pain Aggravating Factors -Alleviating Factors/Interventions -Effectiveness of Alleviating Factor/ Intervention WC - Nurse 1 - General Ulcer Measurement Start: 09/07/24 10:22 Freq: Status: Active Protocol: Activity Type Activity Date Activity User E-sign Co-sign Detail Recorded Client Recorded Date Recorded By Document 09/07/24 10:22 DL [id number] 09/07/24 10:35 DL Document 09/14/24 10:49 RB [id number] 09/14/24 10:53 RB Document 09/21/24 10:42 DL [id number] 09/21/24 10:51 DL Document 09/28/24 11:01 RB [id number] 09/28/24 11:05 RB 09/07/24 09/14/24 09/21/24 10:22 10:49 10:42 Wound Center Nurse 1 #17- L. Ischium -Current Size (cm) - Length 0 -Current Size (cm) - Width 0 -Current Size (cm) - Depth 0 -Total Square Cm 0 -Photo Taken Yes -Exudate Amt None Present -Wound Margin Flat & Intact -Granulation Amt Large (67-100%) -Granulation Quality Mcdougal -Necrosis Amt None Present (0 %) -Structure Exposed N/A -Texture (Leyla-wound Skin Appearance) Scarring -Moisture (Leyla-wound Skin Appearance) No Abnormality -Color (Leyla-wound Skin Appearance) No Abnormality -Temperature (Leyla-wound Skin No Abnormality Appearance) (Pt Warm) -Tenderness on Palpation (Leyla-wound No Skin Appearance) -Foul Odor after Cleansing No 19. sacral -Combined with other wound No -Current Size (cm) - Length 1.4 1.2 -Current Size (cm) - Width 0.7 0.6 -Current Size (cm) - Depth 0.1 0.1 -Total Square Cm 0.98 0.72 -Photo Taken Yes -Tunneling No -Undermining/Tunneling No -Circular Undermining No -Exudate Amt Medium Small -Exudate Type Serosanguineous -Wound Margin Distinct, Distinct, Outline Outline Attached Attached -Granulation Amt Medium (34-66%) None Present (0 %) -Granulation Quality Mcdougal -Slough/Fibrin Yes -Necrosis Amt Small (1-33%) Large (67-100%) -Necrotic Tissue Type Adherent Slough Adherent Slough -Structure Exposed N/A N/A -Texture (Leyla-wound Skin Appearance) Assessed Scarring -Moisture (Leyla-wound Skin Appearance) Assessed No Abnormality -Color (Leyla-wound Skin Appearance) Erythema No Abnormality -Temperature (Leyla-wound Skin No Abnormality No Abnormality Appearance) (Pt Warm) (Pt Warm) -Tenderness on Palpation (Leyla-wound No No Skin Appearance) -Ulcer Cleansing Wound Cleanser Soap and Water -Foul Odor after Cleansing No No -Anesthetic Used 5% Lidocaine 5% Lidocaine Gel Gel #18 L Grt Toe -Combined with other wound No -Current Size (cm) - Length 1 0.8 0.6 -Current Size (cm) - Width 0.8 1.4 0.6 -Current Size (cm) - Depth 0.1 0.1 0.1 -Total Square Cm 0.8 1.12 0.36 -Photo Taken Yes Yes -Tunneling No -Undermining/Tunneling No -Circular Undermining No -Exudate Amt Medium Medium Medium -Exudate Type Serosanguineous Serosanguineous Yellow/Green -Wound Margin Distinct, Distinct, Distinct, Outline Outline Outline Attached Attached Attached -Granulation Amt Medium (34-66%) Medium (34-66%) Large (67-100%) -Granulation Quality Mcdougal Mcdougal Mcdougal -Slough/Fibrin Yes -Necrosis Amt Medium (34-66%) Small (1-33%) Small (1-33%) -Necrotic Tissue Type Adherent Slough Adherent Slough Adherent Slough -Structure Exposed N/A N/A N/A -Texture (Leyla-wound Skin Appearance) Scarring Assessed Scarring -Moisture (Leyla-wound Skin Appearance) No Abnormality Assessed No Abnormality -Color (Leyla-wound Skin Appearance) No Abnormality Assessed No Abnormality -Temperature (Leyla-wound Skin No Abnormality No Abnormality No Abnormality Appearance) (Pt Warm) (Pt Warm) (Pt Warm) -Tenderness on Palpation (Leyla-wound No No Skin Appearance) -Ulcer Cleansing Soap and Water Wound Cleanser Soap and Water -Foul Odor after Cleansing No No No -Anesthetic Used 5% Lidocaine 5% Lidocaine 5% Lidocaine Gel Gel Gel #14 Right Buttock -Combined with other wound No -Current Size (cm) - Length 2.4 2.6 2 -Current Size (cm) - Width 1.1 0.7 0.6 -Current Size (cm) - Depth 0.1 0.1 0.1 -Total Square Cm 2.64 1.82 1.2 -Photo Taken Yes Yes -Tunneling No -Undermining/Tunneling No -Circular Undermining No -Exudate Amt Medium Medium Medium -Exudate Type Serosanguineous Serosanguineous Serosanguineous -Wound Margin Distinct, Distinct, Distinct, Outline Outline Outline Attached Attached Attached -Granulation Amt Large (67-100%) Medium (34-66%) Large (67-100%) -Granulation Quality Hyper- Mcdougal Hyper- granulation, granulation, Mcdougal Mcdougal,Red -Slough/Fibrin Yes -Necrosis Amt None Present (0 Medium (34-66%) Small (1-33%) %) -Necrotic Tissue Type Adherent Slough Adherent Slough -Structure Exposed N/A N/A N/A -Texture (Leyla-wound Skin Appearance) Scarring Assessed Scarring -Moisture (Leyla-wound Skin Appearance) No Abnormality Assessed No Abnormality -Color (Leyla-wound Skin Appearance) No Abnormality Assessed No Abnormality -Temperature (Leyla-wound Skin No Abnormality No Abnormality No Abnormality Appearance) (Pt Warm) (Pt Warm) (Pt Warm) -Tenderness on Palpation (Leyla-wound No No No Skin Appearance) -Ulcer Cleansing Soap and Water Wound Cleanser -Foul Odor after Cleansing No No No -Anesthetic Used 5% Lidocaine 5% Lidocaine 5% Lidocaine Gel Gel Gel -Wound Comment(s) Intact blister noted to R Buttock/Back, states was using a heating pad. 09/28/24 11:01 Wound Center Nurse 1 #17- L. Ischium -Current Size (cm) - Length -Current Size (cm) - Width -Current Size (cm) - Depth -Total Square Cm -Photo Taken -Exudate Amt -Wound Margin -Granulation Amt -Granulation Quality -Necrosis Amt -Structure Exposed -Texture (Leyla-wound Skin Appearance) -Moisture (Leyla-wound Skin Appearance) -Color (Leyla-wound Skin Appearance) -Temperature (Leyla-wound Skin Appearance) -Tenderness on Palpation (Leyla-wound Skin Appearance) -Foul Odor after Cleansing 19. sacral -Combined with other wound No -Current Size (cm) - Length 1 -Current Size (cm) - Width 0.8 -Current Size (cm) - Depth 0.1 -Total Square Cm 0.8 -Photo Taken Yes -Tunneling No -Undermining/Tunneling No -Circular Undermining No -Exudate Amt Medium -Exudate Type Serosanguineous -Wound Margin Distinct, Outline Attached -Granulation Amt Medium (34-66%) -Granulation Quality Mcdougal -Slough/Fibrin Yes -Necrosis Amt Small (1-33%) -Necrotic Tissue Type Adherent Slough -Structure Exposed N/A -Texture (Leyla-wound Skin Appearance) Assessed -Moisture (Leyla-wound Skin Appearance) Assessed -Color (Leyla-wound Skin Appearance) Erythema -Temperature (Leyla-wound Skin No Abnormality Appearance) (Pt Warm) -Tenderness on Palpation (Leyla-wound No Skin Appearance) -Ulcer Cleansing Wound Cleanser -Foul Odor after Cleansing No -Anesthetic Used #18 L Grt Toe -Combined with other wound No -Current Size (cm) - Length 0.6 -Current Size (cm) - Width 0.6 -Current Size (cm) - Depth 0.1 -Total Square Cm 0.36 -Photo Taken Yes -Tunneling No -Undermining/Tunneling No -Circular Undermining No -Exudate Amt Small -Exudate Type Serosanguineous -Wound Margin Distinct, Outline Attached -Granulation Amt Large (67-100%) -Granulation Quality Mcdougal -Slough/Fibrin Yes -Necrosis Amt Small (1-33%) -Necrotic Tissue Type Adherent Slough -Structure Exposed N/A -Texture (Leyla-wound Skin Appearance) Assessed -Moisture (Leyla-wound Skin Appearance) Assessed -Color (Leyla-wound Skin Appearance) Assessed -Temperature (Leyla-wound Skin No Abnormality Appearance) (Pt Warm) -Tenderness on Palpation (Leyla-wound No Skin Appearance) -Ulcer Cleansing Wound Cleanser -Foul Odor after Cleansing No -Anesthetic Used #14 Right Buttock -Combined with other wound No -Current Size (cm) - Length 1.5 -Current Size (cm) - Width 0.6 -Current Size (cm) - Depth 0.1 -Total Square Cm 0.90 -Photo Taken Yes -Tunneling No -Undermining/Tunneling No -Circular Undermining No -Exudate Amt Medium -Exudate Type Serosanguineous -Wound Margin Distinct, Outline Attached -Granulation Amt Medium (34-66%) -Granulation Quality Mcdougal -Slough/Fibrin Yes -Necrosis Amt Medium (34-66%) -Necrotic Tissue Type Adherent Slough -Structure Exposed N/A -Texture (Leyla-wound Skin Appearance) Assessed, Scarring -Moisture (Leyla-wound Skin Appearance) Assessed -Color (Leyla-wound Skin Appearance) Assessed -Temperature (Leyla-wound Skin No Abnormality Appearance) (Pt Warm) -Tenderness on Palpation (Leyla-wound No Skin Appearance) -Ulcer Cleansing Wound Cleanser -Foul Odor after Cleansing No -Anesthetic Used -Wound Comment(s) WC - Nurse 2 - General Ulcer CM Notes Start: 09/07/24 10:22 Freq: Status: Active Protocol: Activity Type Activity Date Activity User E-sign Co-sign Detail Recorded Client Recorded Date Recorded By Document 09/07/24 10:45 [employer] [id number] 09/07/24 10:57 [employer] Document 09/14/24 11:01 [employer] [id number] 09/14/24 11:12 [employer] Document 09/21/24 10:57 [employer] [id number] 09/21/24 11:19 [employer] Document 09/28/24 11:23 [employer] [id number] 09/28/24 11:37 BMF 09/07/24 09/14/24 09/21/24 10:45 11:01 10:57 Wound Center Nurse 2 #17- L. Ischium -Time 10:47 -Procedure Performed No -Post Debridement (cm) - Length 0 -Post Debridement (cm) - Width 0 -Post Debridement (cm) - Depth 0 -Total Square (Post) (cm) 0 -Area of Debridement (cm) - Length 0 -Area of Debridement (cm) - Width 0 -Total Square (Area) (cm) 0 -Wound/Ulcer Outcome Healed- Epithelialized -Bleeding Controlled with NA 19. sacral -Time 11:06 10:58 -Correct Patient Yes Yes -Correct Side, Site, Position Yes Yes -Correct Procedure Yes Yes -Procedure Performed Yes Yes -Type of Procedure Debridement Debridement -Clinical Debridement Subcutaneous Subcutaneous -Tissue Removed Subcutaneous Subcutaneous -Post Debridement (cm) - Length 1.5 1.5 -Post Debridement (cm) - Width 1.7 1.1 -Post Debridement (cm) - Depth 0.1 0.1 -Total Square (Post) (cm) 2.55 1.65 -Area of Debridement (cm) - Length 1.5 1.5 -Area of Debridement (cm) - Width 1.7 1.1 -Total Square (Area) (cm) 2.55 1.65 -Tunneling No No -Undermining/Tunneling No No -Circular Undermining No No -Wound/Ulcer Outcome Not Healed Not Healed -Ulcer Cleansing Rinsed/ Rinsed/ Irrigated with Irrigated with Saline Saline -Foul Odor after Cleansing No No -Bioengineered Tissue No No -Bleeding Controlled with Pressure Pressure -Treatment Response Procedure Procedure Tolerated Well Tolerated Well -Debridement - Subq, 1st 20sq cm No Yes #18 L Grt Toe -Time 10:47 11:08 10:59 -Correct Patient Yes Yes -Correct Side, Site, Position Yes Yes -Correct Procedure Yes Yes -Procedure Performed Yes Yes No -Type of Procedure Debridement Debridement -Clinical Debridement Subcutaneous Subcutaneous -Tissue Removed Subcutaneous Subcutaneous -Post Debridement (cm) - Length 1.4 1.3 1 -Post Debridement (cm) - Width 1.8 1.5 1.2 -Post Debridement (cm) - Depth 0.1 0.1 0.1 -Total Square (Post) (cm) 2.52 1.95 1.2 -Area of Debridement (cm) - Length 1.4 1.3 1 -Area of Debridement (cm) - Width 1.8 1.5 1.2 -Total Square (Area) (cm) 2.52 1.95 1.2 -Tunneling No No No -Undermining/Tunneling No No No -Circular Undermining No No No -Wound/Ulcer Outcome Not Healed Not Healed Not Healed -Ulcer Cleansing Rinsed/ Rinsed/ Irrigated with Irrigated with Saline Saline -Foul Odor after Cleansing No No -Bioengineered Tissue No No -Bleeding Controlled with Pressure, Pressure NA Surgifoam ? x 2 38 (sm) -Surgifoam (3/4 x 2 38) Small 1 -Treatment Response Procedure Procedure Tolerated Well Tolerated Well -Debridement - Open, 1st 20sq cm -Debridement - Subq, 1st 20sq cm Yes No #14 Right Buttock -Time 10:45 11:04 10:59 -Correct Patient Yes Yes Yes -Correct Side, Site, Position Yes Yes Yes -Correct Procedure Yes Yes Yes -Procedure Performed Yes Yes Yes -Type of Procedure Debridement Debridement Debridement -Clinical Debridement Subcutaneous Subcutaneous Subcutaneous -Tissue Removed Subcutaneous Subcutaneous Subcutaneous -Post Debridement (cm) - Length 3 2 2 -Post Debridement (cm) - Width 1 1.5 1.1 -Post Debridement (cm) - Depth 0.1 0.1 0.1 -Total Square (Post) (cm) 3 3.0 2.2 -Area of Debridement (cm) - Length 3 2 2 -Area of Debridement (cm) - Width 1 1.5 1.1 -Total Square (Area) (cm) 3 3.0 2.2 -Tunneling No No No -Undermining/Tunneling No No No -Circular Undermining No No No -Wound/Ulcer Outcome Not Healed Not Healed Not Healed -Ulcer Cleansing Rinsed/ Rinsed/ Rinsed/ Irrigated with Irrigated with Irrigated with Saline Saline Saline -Foul Odor after Cleansing No No No -Bioengineered Tissue No No Yes -Type of Bioengineered Tissue Epifix -Expiration Date 11/01/28 -Product Lot Number [id number] -Percent Used 100 -Lot number of Saline Used [id number] -Bleeding Controlled with Pressure Pressure,Silver Pressure Nitrate ($) -Treatment Response Procedure Procedure Procedure Tolerated Well Tolerated Well Tolerated Well -Pressure Reduction Wheelchair cushion, Specialty bed -Debridement - Subq, 1st 20sq cm No Yes No -Apply Skin Sub - 1st 25 sq cm - Legs 1 -Epifix Application 1-4 (per sq cm) 4 -Epifix 18mm Disc Application 1-4 Pain Scale: 0-10 Numeric Is Patient Pain Free? Yes Yes Yes 09/28/24 11:23 Wound Center Nurse 2 #17- L. Ischium -Time -Procedure Performed -Post Debridement (cm) - Length -Post Debridement (cm) - Width -Post Debridement (cm) - Depth -Total Square (Post) (cm) -Area of Debridement (cm) - Length -Area of Debridement (cm) - Width -Total Square (Area) (cm) -Wound/Ulcer Outcome -Bleeding Controlled with 19. sacral -Time 11:30 -Correct Patient Yes -Correct Side, Site, Position Yes -Correct Procedure Yes -Procedure Performed Yes -Type of Procedure Debridement -Clinical Debridement Subcutaneous -Tissue Removed Subcutaneous -Post Debridement (cm) - Length 1.3 -Post Debridement (cm) - Width 1 -Post Debridement (cm) - Depth 0.1 -Total Square (Post) (cm) 1.3 -Area of Debridement (cm) - Length 1.3 -Area of Debridement (cm) - Width 1 -Total Square (Area) (cm) 1.3 -Tunneling No -Undermining/Tunneling No -Circular Undermining No -Wound/Ulcer Outcome Not Healed -Ulcer Cleansing Rinsed/ Irrigated with Saline -Foul Odor after Cleansing No -Bioengineered Tissue No -Bleeding Controlled with Pressure -Treatment Response Procedure Tolerated Well -Debridement - Subq, 1st 20sq cm Yes #18 L Grt Toe -Time 11:23 -Correct Patient Yes -Correct Side, Site, Position Yes -Correct Procedure Yes -Procedure Performed Yes -Type of Procedure Debridement -Clinical Debridement Epidermis / Dermis -Tissue Removed Epidermis, Dermis -Post Debridement (cm) - Length 0.3 -Post Debridement (cm) - Width 0.3 -Post Debridement (cm) - Depth 0.1 -Total Square (Post) (cm) 0.09 -Area of Debridement (cm) - Length 0.3 -Area of Debridement (cm) - Width 0.3 -Total Square (Area) (cm) 0.09 -Tunneling No -Undermining/Tunneling No -Circular Undermining No -Wound/Ulcer Outcome Not Healed -Ulcer Cleansing Rinsed/ Irrigated with Saline -Foul Odor after Cleansing No -Bioengineered Tissue No -Bleeding Controlled with Pressure -Surgifoam (3/4 x 2 3/8) Small -Treatment Response Procedure Tolerated Well -Debridement - Open, 1st 20sq cm Yes -Debridement - Subq, 1st 20sq cm #14 Right Buttock -Time 11:28 -Correct Patient Yes -Correct Side, Site, Position Yes -Correct Procedure Yes -Procedure Performed Yes -Type of Procedure Debridement -Clinical Debridement Subcutaneous -Tissue Removed Subcutaneous -Post Debridement (cm) - Length 2 -Post Debridement (cm) - Width 0.8 -Post Debridement (cm) - Depth 0.1 -Total Square (Post) (cm) 1.6 -Area of Debridement (cm) - Length 2 -Area of Debridement (cm) - Width 0.8 -Total Square (Area) (cm) 1.6 -Tunneling No -Undermining/Tunneling No -Circular Undermining No -Wound/Ulcer Outcome Not Healed -Ulcer Cleansing Rinsed/ Irrigated with Saline -Foul Odor after Cleansing No -Bioengineered Tissue Yes -Type of Bioengineered Tissue Epifix 18mm Disc -Expiration Date 05/04/29 -Product Lot Number [id number] -Percent Used 100 -Lot number of Saline Used [id number] -Bleeding Controlled with Pressure -Treatment Response Procedure Tolerated Well -Pressure Reduction -Debridement - Subq, 1st 20sq cm No -Apply Skin Sub - 1st 25 sq cm - Legs 1 -Epifix Application 1-4 (per sq cm) -Epifix 18mm Disc Application 1-4 3 Pain Scale: 0-10 Numeric Is Patient Pain Free? Yes WC - Nurse 3 - General Ulcer D/C NN Start: 09/07/24 10:22 Freq: Status: Active Protocol: Activity Type Activity Date Activity User E-sign Co-sign Detail Recorded Client Recorded Date Recorded By Document 09/07/24 11:14 DL [id number] 09/07/24 11:19 DL Document 09/14/24 11:28 DL [id number] 09/14/24 11:31 DL Document 09/21/24 11:30 MT [id number] 09/21/24 11:39 MT Document 09/28/24 12:03 RB [id number] 09/28/24 12:05 RB 09/07/24 09/14/24 09/21/24 11:14 11:28 11:30 Wound Care Center Nurse 3 19. sacral -Ulcer Cleansing Rinsed/ Rinsed/ Irrigated with Irrigated with Saline Saline -Foul Odor after Cleansing No No -Primary Dressing Applied Fibracol Plus Silicone Border 4x4,NonAdherent Foam 4x4 Contact Layer, Silicone Border Foam 4x4 -Other Dressing FLuffed gauze -Primary Dressing Covered/Secured with -Fibracol Plus 4x4 1 -Silicone Border Foam 4x4 1 1 #18 L Grt Toe -Ulcer Cleansing Rinsed/ Rinsed/ Irrigated with Irrigated with Saline Saline -Foul Odor after Cleansing No No No -Primary Dressing Applied Silicone Border NonAdherent Silicone Border Foam 4x4 Contact Layer, Foam 4x4 Silicone Border Foam 4x4 -Other Dressing Surgafoam today fibracol xeroform/ gauze / apperture pad -Silicone Border Foam 4x4 1 1 1 #14 Right Buttock -Ulcer Cleansing Rinsed/ Rinsed/ Not Cleansed Irrigated with Irrigated with Saline Saline -Foul Odor after Cleansing No No No -Primary Dressing Applied Promogran, Promogran, Silicone Border Silicone Border Silicone Border Foam 4x4 Foam 4x4, Foam 4x4 Silicone Border Foam 6x6 -Other Dressing Epifix/ fluffed gauze/ -Primary Dressing Covered/Secured with -Promogran 1 1 -Silicone Border Foam 4x4 1 1 1 -Silicone Border Foam 6x6 1 -Wound Comment(s) Skin prep and 4x4 silicone border dressing to blister. 2 border foam noted on R Buttocks nurse 3. Treatment Response Procedure Procedure Tolerated Well Tolerated Well Pain Scale: 0-10 Numeric Is Patient Pain Free? Yes Yes Yes WC - Visit Discharge Discharge Condition Stable Stable Stable Ambulatory Status Wheelchair Wheelchair Transportation Private Auto Private Auto Trans Medication Reconcilliation completed & provided to patient/care provider Clinical Summary of Care Provided Notes: Dressing Dressings applied today applied today per Nora Hollis. per Jessica Tsang. [facility] Orders Sent Yes Yes Yes 09/28/24 12:03 Wound Care Center Nurse 3 19. sacral -Ulcer Cleansing Rinsed/ Irrigated with Saline -Foul Odor after Cleansing -Primary Dressing Applied Silicone Border Foam 4x4 -Other Dressing -Primary Dressing Covered/Secured with Dry Gauze -Fibracol Plus 4x4 -Silicone Border Foam 4x4 1 #18 L Grt Toe -Ulcer Cleansing Rinsed/ Irrigated with Saline -Foul Odor after Cleansing -Primary Dressing Applied Silicone Border Foam 4x4 -Other Dressing xeroform/ mepilex/ apperture pad -Silicone Border Foam 4x4 1 #14 Right Buttock -Ulcer Cleansing -Foul Odor after Cleansing -Primary Dressing Applied Silicone Border Foam 6x6 -Other Dressing -Primary Dressing Covered/Secured with Dry Gauze -Promogran -Silicone Border Foam 4x4 -Silicone Border Foam 6x6 1 -Wound Comment(s) Treatment Response Procedure Tolerated Well Pain Scale: 0-10 Numeric Is Patient Pain Free? Yes WC - Visit Discharge Discharge Condition Stable Ambulatory Status Wheelchair Transportation Private Auto Medication Reconcilliation completed & No provided to patient/care provider Clinical Summary of Care Provided Yes Notes: Facility Type Orders Sent Additional Wound Wound debrided: Left great toe hallux Laterality: Left Wound Grade/Stage: Stage II Type of Debridement: Selective debridement Anesthesia Used: 5% Lidocaine Gel Depth: Down to and including healthy tissue Percentage of wound debrided: 100 Instrument Used: - (Using gauze) Tissue Removed: Fibrin Severity: Limited To Skin Breakdown Amount of bleeding with debridement: Moderate Bleeding Controlled with: Compression and gauze Patient tolerated procedure: Patient tolerated procedure well Additional Wound Wound debrided: Left sacral blister Type of Debridement: Excisional debridement Anesthesia Used: 5% Lidocaine Gel Depth: Down to and including healthy tissue Percentage of wound debrided: 100 Instrument Used: 5mm curette Tissue Removed: Fibrin Severity: Limited To Skin Breakdown Amount of bleeding with debridement: Mild Bleeding Controlled with: Compression and gauze Patient tolerated procedure: Patient tolerated procedure well Assessment/Plan Assessment/Plan (1) Decubitus ulcer of sacral region, stage 2: CODE(S): L89.152 - Pressure ulcer of sacral region, stage 2 PLAN: Wound resolved and patient is to just sure prep pad and protect (2) Decubitus ulcer of toe, stage 2: CODE(S): L89.892 - Pressure ulcer of other site, stage 2 QUALIFIERS: Laterality: left Qualified Code(s): L89.892 - Pressure ulcer of other site, stage 2 PLAN: Wash area with Dial soap and pat dry with water and apply Xeroform and Adaptic with a foam dressing over top every day stasis pad on top full coverage to the wound bed Follow-up 1 week (3) Chronic anemia: CODE(S): D64.9 - Anemia, unspecified PLAN: Continue ferrous sulfate 325 mg to twice a day with stool softeners B12 injections 1000 mcg q. weekly Improved immensely she said at normal rate at this time (4) Decubitus ulcer of right buttock, stage 4: CODE(S): L89.314 - Pressure ulcer of right buttock, stage 4 PLAN: EpiFix #6 was applied to the right buttocks using veil and Steri-Strips hold in place with padded dressing over top. (5) Skin ulcer of left great toe: CODE(S): L97.529 - Non-pressure chronic ulcer of other part of left foot with unspecified severity QUALIFIERS: Non-pressure ulcer stage: limited to breakdown of skin Qualified Code(s): L97.521 - Non-pressure chronic ulcer of other part of left foot limited to breakdown of skin (6) Decubitus ulcer of left ischium, stage 2: CODE(S): L89.322 - Pressure ulcer of left buttock, stage 2 PLAN: Resolved and monitor may use Skin-Prep as needed (7) Ulcer of anus: CODE(S): K62.6 - Ulcer of anus and rectum PLAN: Resolved and monitor use Skin-Prep as needed (8) Non-pressure chronic ulcer of buttock: CODE(S): L98.419 - Non-pressure chronic ulcer of buttock with unspecified severity QUALIFIERS: Non-pressure ulcer stage: limited to breakdown of skin Qualified Code(s): L98.411 - Non-pressure chronic ulcer of buttock limited to breakdown of skin PLAN: Wash area with antibacterial soap and water and apply Fibracol with Adaptic over top and a foam SAP [place] dressing every day follow-up in 1 week 09/28/24 1238 <Electronically signed by Evelyn Robertson NP DATA SECURITY CONSULTANT-C> Cosigner Signature (if applicable): CC: ~ Signed [facility] Work Phone: 1(650) 190-928205-28-2025 Evaluation note* Diagnosis Onset Date Resolution Status Admit Date Decubitus ulcer of left ischium, stage 2 acute September 28, 2024 10:30am Decubitus ulcer of right buttock, stage 4 acute September 28, 2024 10:30am Decubitus ulcer of sacral region, stage 2 acute September 28, 2024 1 0:30am Decubitus ulcer of toe, stage 2 acut e September 28, 2024 10:30am Skin ulcer of left great toe acute September 28, 2024 10:30am Ulcer of anus acute September 28, 2 025 10:30am Chronic anemia chronic September 28, 2024 10:30am 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 September 28, 2024 1 0:30am Decubitus ulcer of left ischium, stage 2 acute October 12, 2024 10:30am Decubitus ulcer of right buttock, stage 4 acute October 12, 2024 10:30am Decubitus ulcer of sacral region, stage 2 acute October 12, 2024 10:30am Decubitus ulcer of toe, stage 2 acut e October 12, 2024 10:30am Skin ulcer of left great toe acute October 12, 2024 10:30am Ulcer of anus acute October 12, 2024 10:30am Chronic anemia chronic October 12, 2024 10:30am 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 October 12, 2024 10:30am [facility] Work Phone: 1(158) 787-145005-21-2025 Progress note Author Evelyn Robertson [facility] Note Date/Time September 21, 2024 12:11 pm [facility] [address] [place] [address] Progress Note - Wound Care 09/21/24 1201 MR#: [id number] Acct: [id number] Name: ALEENA ANDREA Rep #:[id number] 12 : 1950 74 From: Evelyn Robertson NP DATA SECURITY CONSULTANT-C PCP: Dr. 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 Patient underwent treatment for colitis as an inpatient in March 2024 and developed a right ischial pressure ulcer. It was debrided twice at [facility]. She has been following for wound care with a nurse practitioner in the wound care center, whoreferred her to me for second opinion to see if she needs surgery. Patient lives at home in an apartment usually by herself. She does not have a pressure offloading bed. She is quite high functioning; however, she is currently in a nursing facility for wound care ever since the recent hospital admission. 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 She has an adult daughter in [place] and an adult daughter here in [place] whoare both very involved and supportive. Progress of Wound: Right ischium wound is healed. She developed a blister from putting a heating pad on her buttocks because she was cold. About the size of a quarter now it is flat and smooth we will apply Fibracol and Adaptic on top of it to keep it from getting infected with a foam dressing, [place] SAP pad. The left great toe hallux is open again and we feel it is from her laying on herstomach and she is not padding it properly and putting a shoe or a sock or a foam dressing over top of that the protected and she is opening it. We will change to Xeroform and Adaptic and maybe use some stasis pads over to see if that helps protect it. Right buttocks hyper granulated area is gone and we will try going back to the EpiFix to finish we can finish her off it measuring smaller she is all nice and smooth and looks really good. Subjective Subjective Patient is agreeable to plan and has not been laying on her stomach she says sheis laying on her side so she will be hitting that that toe. Objective Data Objective Data Again the right buttocks looks good the hypergranulation is done its flat smaller you can see where the skin starting to creep and around the edges of theperipheral and we will try using another EpiFix see if we can close it and get more skin to develop on the outside. The blistered area on her right buttocks is still flat and does not really moveso we will try continue using the Fibracol on that. The left great toe hallux is not bleeding it looks flatter and smaller we will try maybe using Xeroform on it so we can close it with Xeroform and Adaptic thisweek. All in all she looks like she is healing well on all the wounds she continues to offload and she continues to eat a high-protein diet. Vital Signs: Vital Signs Temp Pulse Resp BP 97.2 F L 92 18 122/71 H 09/21/24 10:42 09/21/24 10:42 09/21/24 10:42 09/21/24 10:42 Weight: 89 lb 6.4 oz Body Mass Index (BMI) 16.9 Physical Exam Const oriented x3 General Appearance: cooperative Orientation / Consciousness: oriented to person, oriented to place and oriented to time Exam Limitations: no limitations Nutritional Appearance: cachectic, underweight and thin HEENT normocephalic Head and Scalp: normal to inspection External Ear: external ears normal Eyes PERRL General Eye: normal appearance of both eyes Neck full ROM General: normal visual inspection Resp normal respiratory effort Effort and Inspection: able to speak in complete sentences Auscultation: clear to auscultation bilaterally Cardio regular rate and regular rhythm Palpation: normal PMI Rate: regular rate Rhythm: regular rhythm GI Rectal Exam: visual inspection abnormal, fistula and other Other Details: Open wound left buttocks and perirectal may be fistula going on. Back/Spine Back/Spine Narrative: Paralysis from waist down Cervical Spine: cervical ROM normal Pelvis: buttocks abnormal right and other soft tissue findings Wound on her coccyx area Skin no rashes or lesions noted Skin Narrative: Open wounds on left buttocks with positive depth and infection possible sepsis sacral area open area nonhealing and perirectal area possibly a fistula. Wounds: wounds noted Wound Narrative: Open wound on coccyx stage II Right buttocks wound stage IV Neuro oriented x3 Psych Appearance: grossly normal Attitude: calm Activity / Motor Behavior: appropriate eye contact Speech: normal speech Mood & Affect: euthymic mood Thought Process: normal thought process Thought Content: normal thought content Attention / Concentration: attention grossly intact Memory / Cognition: memory grossly intact Insight: insight good Judgement: judgement good Debridement Note Debridement Note Wound debrided: Right buttocks Laterality: Right Wound Grade/Stage: Stage IV Type of Debridement: Selective debridement Anesthesia Used: 5% Lidocaine Gel Depth: in the subcutaneous layer Percentage of wound debrided: 100 Instrument Used: 5mm curette Tissue Removed: Fibrin Severity: Fat Layer Exposed Amount of bleeding with debridement: Mild Bleeding Controlled with: Compression and gauze Patient tolerated procedure: Patient tolerated procedure well Post-Debridement Measurements and Additional Note: Post-Debridement Measurements/Treatment WC - Nurse 1 - General Ulcer Assessment Start: 09/07/24 10:22 Freq: Status: Active Protocol: JOSEPHINE Activity Type Activity Date Activity User E-sign Co-sign Detail Recorded Client Recorded Date Recorded By Document 09/07/24 10:22 DL [id number] 09/07/24 10:35 DL Document 09/14/24 10:49 RB [id number] 09/14/24 10:53 RB Document 09/21/24 10:42 DL [id number] 09/21/24 10:51 DL 09/07/24 09/14/24 09/21/24 10:22 10:49 10:42 WC - Today's Visit Information Type of service Follow-up Visit Follow-up Visit Follow-up Visit (Physician/LIAISON OFFICER (Physician/LIAISON OFFICER (Physician/LIAISON OFFICER ) ) ) Arrival Mode Wheelchair Wheelchair Wheelchair Transfer Assistance Manual Manual Transfer Assist (Other) x2 x2 Patient Identification Verified (Name & Yes Yes Yes ) Patient Requires Transmission-Based No No No Precautions Height and Weight Body Mass Index (BMI) 16.9 16.9 16.9 BMI Classification Underweight Underweight Underweight Vital Signs Temperature (97.8 F-99.1 F) 97.8 F 97.6 F L 97.2 F L Temperature Source Temporal Temporal Temporal Pulse Rate (60-100) 79 61 92 Pulse Location Monitor Monitor Monitor Respiratory Rate (12-18) 16 18 18 Respiratory rate source Observation Observation Observation Blood Pressure (90/60-120/80) 128/72 H 130/73 H 122/71 H Blood Pressure Mean (mm Hg) 90 92 88 Source Monitor Monitor Monitor Position Semi-Fowlers Blood Pressure Location Right Arm History Since Last Visit- (Skip if this is Patient's initial visit) Have you changed medications since your No No No last visit? Any new allergies or adverse reactions No No No Had a fall/change in ADL's that may No No No increase risk of falls Signs or symptoms of abuse and/or No No No neglect since last visit Have you been in the hospital since your No No No last visit? Has dressing in place as prescribed Yes Yes Yes Has compression in place as prescribed N/A N/A Yes Has offloadiing in place as prescribed Yes N/A N/A Experienced any changes in pain level or No No No management Pain Scale: 0-10 Numeric Is Patient Pain Free? Yes No Yes FROM WAIST DOWN TO FEET -Description Sharp -Intensity 7 -Duration (hours) Chronic -Pain Behavior No Change in Behavior -Pain Aggravating Factors Changing Position -Alleviating Factors/Interventions Medication -Effectiveness of Alleviating Factor/ Moderately Intervention effective WC - Nurse 1 - General Ulcer Measurement Start: 09/07/24 10:22 Freq: Status: Active Protocol: Activity Type Activity Date Activity User E-sign Co-sign Detail Recorded Client Recorded Date Recorded By Document 09/07/24 10:22 DL [id number] 09/07/24 10:35 DL Document 09/14/24 10:49 RB [id number] 09/14/24 10:53 RB Document 09/21/24 10:42 DL [id number] 09/21/24 10:51 DL 09/07/24 09/14/24 09/21/24 10:22 10:49 10:42 Wound Center Nurse 1 #17- L. Ischium -Current Size (cm) - Length 0 -Current Size (cm) - Width 0 -Current Size (cm) - Depth 0 -Total Square Cm 0 -Photo Taken Yes -Exudate Amt None Present -Wound Margin Flat & Intact -Granulation Amt Large (67-100%) -Granulation Quality Mcdougal -Necrosis Amt None Present (0 %) -Structure Exposed N/A -Texture (Leyla-wound Skin Appearance) Scarring -Moisture (Leyla-wound Skin Appearance) No Abnormality -Color (Leyla-wound Skin Appearance) No Abnormality -Temperature (Leyla-wound Skin No Abnormality Appearance) (Pt Warm) -Tenderness on Palpation (Leyla-wound No Skin Appearance) -Foul Odor after Cleansing No 19. sacral -Combined with other wound No -Current Size (cm) - Length 1.4 1.2 -Current Size (cm) - Width 0.7 0.6 -Current Size (cm) - Depth 0.1 0.1 -Total Square Cm 0.98 0.72 -Photo Taken Yes -Tunneling No -Undermining/Tunneling No -Circular Undermining No -Exudate Amt Medium Small -Exudate Type Serosanguineous -Wound Margin Distinct, Distinct, Outline Outline Attached Attached -Granulation Amt Medium (34-66%) None Present (0 %) -Granulation Quality Mcdougal -Slough/Fibrin Yes -Necrosis Amt Small (1-33%) Large (67-100%) -Necrotic Tissue Type Adherent Slough Adherent Slough -Structure Exposed N/A N/A -Texture (Leyla-wound Skin Appearance) Assessed Scarring -Moisture (Leyla-wound Skin Appearance) Assessed No Abnormality -Color (Leyla-wound Skin Appearance) Erythema No Abnormality -Temperature (Leyla-wound Skin No Abnormality No Abnormality Appearance) (Pt Warm) (Pt Warm) -Tenderness on Palpation (Leyla-wound No No Skin Appearance) -Ulcer Cleansing Wound Cleanser Soap and Water -Foul Odor after Cleansing No No -Anesthetic Used 5% Lidocaine 5% Lidocaine Gel Gel #18 L Grt Toe -Combined with other wound No -Current Size (cm) - Length 1 0.8 0.6 -Current Size (cm) - Width 0.8 1.4 0.6 -Current Size (cm) - Depth 0.1 0.1 0.1 -Total Square Cm 0.8 1.12 0.36 -Photo Taken Yes Yes -Tunneling No -Undermining/Tunneling No -Circular Undermining No -Exudate Amt Medium Medium Medium -Exudate Type Serosanguineous Serosanguineous Yellow/Green -Wound Margin Distinct, Distinct, Distinct, Outline Outline Outline Attached Attached Attached -Granulation Amt Medium (34-66%) Medium (34-66%) Large (67-100%) -Granulation Quality Mcdougal Mcdougal Mcdougal -Slough/Fibrin Yes -Necrosis Amt Medium (34-66%) Small (1-33%) Small (1-33%) -Necrotic Tissue Type Adherent Slough Adherent Slough Adherent Slough -Structure Exposed N/A N/A N/A -Texture (Leyla-wound Skin Appearance) Scarring Assessed Scarring -Moisture (Leyla-wound Skin Appearance) No Abnormality Assessed No Abnormality -Color (Leyla-wound Skin Appearance) No Abnormality Assessed No Abnormality -Temperature (Leyla-wound Skin No Abnormality No Abnormality No Abnormality Appearance) (Pt Warm) (Pt Warm) (Pt Warm) -Tenderness on Palpation (Leyla-wound No No Skin Appearance) -Ulcer Cleansing Soap and Water Wound Cleanser Soap and Water -Foul Odor after Cleansing No No No -Anesthetic Used 5% Lidocaine 5% Lidocaine 5% Lidocaine Gel Gel Gel #14 Right Buttock -Combined with other wound No -Current Size (cm) - Length 2.4 2.6 2 -Current Size (cm) - Width 1.1 0.7 0.6 -Current Size (cm) - Depth 0.1 0.1 0.1 -Total Square Cm 2.64 1.82 1.2 -Photo Taken Yes Yes -Tunneling No -Undermining/Tunneling No -Circular Undermining No -Exudate Amt Medium Medium Medium -Exudate Type Serosanguineous Serosanguineous Serosanguineous -Wound Margin Distinct, Distinct, Distinct, Outline Outline Outline Attached Attached Attached -Granulation Amt Large (67-100%) Medium (34-66%) Large (67-100%) -Granulation Quality Hyper- Mcdougal Hyper- granulation, granulation, Mcdougal Mcdougal,Red -Slough/Fibrin Yes -Necrosis Amt None Present (0 Medium (34-66%) Small (1-33%) %) -Necrotic Tissue Type Adherent Slough Adherent Slough -Structure Exposed N/A N/A N/A -Texture (Leyla-wound Skin Appearance) Scarring Assessed Scarring -Moisture (Leyla-wound Skin Appearance) No Abnormality Assessed No Abnormality -Color (Leyla-wound Skin Appearance) No Abnormality Assessed No Abnormality -Temperature (Leyla-wound Skin No Abnormality No Abnormality No Abnormality Appearance) (Pt Warm) (Pt Warm) (Pt Warm) -Tenderness on Palpation (Leyla-wound No No No Skin Appearance) -Ulcer Cleansing Soap and Water Wound Cleanser -Foul Odor after Cleansing No No No -Anesthetic Used 5% Lidocaine 5% Lidocaine 5% Lidocaine Gel Gel Gel -Wound Comment(s) Intact blister noted to R Buttock/Back, states was using a heating pad. WC - Nurse 2 - General Ulcer CM Notes Start: 09/07/24 10:22 Freq: Status: Active Protocol: Activity Type Activity Date Activity User E-sign Co-sign Detail Recorded Client Recorded Date Recorded By Document 09/07/24 10:45 [facility] [id number] 09/07/24 10:57 [facility] Document 09/14/24 11:01 [facility] [id number] 09/14/24 11:12 [facility] Document 09/21/24 10:57 [facility] [id number] 09/21/24 11:19 [facility] 09/07/24 09/14/24 09/21/24 10:45 11:01 10:57 Wound Center Nurse 2 #17- L. Ischium -Time 10:47 -Procedure Performed No -Post Debridement (cm) - Length 0 -Post Debridement (cm) - Width 0 -Post Debridement (cm) - Depth 0 -Total Square (Post) (cm) 0 -Area of Debridement (cm) - Length 0 -Area of Debridement (cm) - Width 0 -Total Square (Area) (cm) 0 -Wound/Ulcer Outcome Healed- Epithelialized -Bleeding Controlled with NA 19. sacral -Time 11:06 10:58 -Correct Patient Yes Yes -Correct Side, Site, Position Yes Yes -Correct Procedure Yes Yes -Procedure Performed Yes Yes -Type of Procedure Debridement Debridement -Clinical Debridement Subcutaneous Subcutaneous -Tissue Removed Subcutaneous Subcutaneous -Post Debridement (cm) - Length 1.5 1.5 -Post Debridement (cm) - Width 1.7 1.1 -Post Debridement (cm) - Depth 0.1 0.1 -Total Square (Post) (cm) 2.55 1.65 -Area of Debridement (cm) - Length 1.5 1.5 -Area of Debridement (cm) - Width 1.7 1.1 -Total Square (Area) (cm) 2.55 1.65 -Tunneling No No -Undermining/Tunneling No No -Circular Undermining No No -Wound/Ulcer Outcome Not Healed Not Healed -Ulcer Cleansing Rinsed/ Rinsed/ Irrigated with Irrigated with Saline Saline -Foul Odor after Cleansing No No -Bioengineered Tissue No No -Bleeding Controlled with Pressure Pressure -Treatment Response Procedure Procedure Tolerated Well Tolerated Well -Debridement - Subq, 1st 20sq cm No Yes #18 L Grt Toe -Time 10:47 11:08 10:59 -Correct Patient Yes Yes -Correct Side, Site, Position Yes Yes -Correct Procedure Yes Yes -Procedure Performed Yes Yes No -Type of Procedure Debridement Debridement -Clinical Debridement Subcutaneous Subcutaneous -Tissue Removed Subcutaneous Subcutaneous -Post Debridement (cm) - Length 1.4 1.3 1 -Post Debridement (cm) - Width 1.8 1.5 1.2 -Post Debridement (cm) - Depth 0.1 0.1 0.1 -Total Square (Post) (cm) 2.52 1.95 1.2 -Area of Debridement (cm) - Length 1.4 1.3 1 -Area of Debridement (cm) - Width 1.8 1.5 1.2 -Total Square (Area) (cm) 2.52 1.95 1.2 -Tunneling No No No -Undermining/Tunneling No No No -Circular Undermining No No No -Wound/Ulcer Outcome Not Healed Not Healed Not Healed -Ulcer Cleansing Rinsed/ Rinsed/ Irrigated with Irrigated with Saline Saline -Foul Odor after Cleansing No No -Bioengineered Tissue No No -Bleeding Controlled with Pressure, Pressure NA Surgifoam ? x 2 38 (sm) -Surgifoam (3/4 x 2 8) Small 1 -Treatment Response Procedure Procedure Tolerated Well Tolerated Well -Debridement - Subq, 1st 20sq cm Yes No #14 Right Buttock -Time 10:45 11:04 10:59 -Correct Patient Yes Yes Yes -Correct Side, Site, Position Yes Yes Yes -Correct Procedure Yes Yes Yes -Procedure Performed Yes Yes Yes -Type of Procedure Debridement Debridement Debridement -Clinical Debridement Subcutaneous Subcutaneous Subcutaneous -Tissue Removed Subcutaneous Subcutaneous Subcutaneous -Post Debridement (cm) - Length 3 2 2 -Post Debridement (cm) - Width 1 1.5 1.1 -Post Debridement (cm) - Depth 0.1 0.1 0.1 -Total Square (Post) (cm) 3 3.0 2.2 -Area of Debridement (cm) - Length 3 2 2 -Area of Debridement (cm) - Width 1 1.5 1.1 -Total Square (Area) (cm) 3 3.0 2.2 -Tunneling No No No -Undermining/Tunneling No No No -Circular Undermining No No No -Wound/Ulcer Outcome Not Healed Not Healed Not Healed -Ulcer Cleansing Rinsed/ Rinsed/ Rinsed/ Irrigated with Irrigated with Irrigated with Saline Saline Saline -Foul Odor after Cleansing No No No -Bioengineered Tissue No No Yes -Type of Bioengineered Tissue Epifix -Expiration Date 11/01/28 -Product Lot Number [id number] -Percent Used 100 -Lot number of Saline Used [id number] -Bleeding Controlled with Pressure Pressure,Silver Pressure Nitrate ($) -Treatment Response Procedure Procedure Procedure Tolerated Well Tolerated Well Tolerated Well -Pressure Reduction Wheelchair cushion, Specialty bed -Debridement - Subq, 1st 20sq cm No Yes No -Apply Skin Sub - 1st 25 sq cm - Legs 1 -Epifix Application 1-4 (per sq cm) 4 Pain Scale: 0-10 Numeric Is Patient Pain Free? Yes Yes Yes WC - Nurse 3 - General Ulcer D/C NN Start: 09/07/24 10:22 Freq: Status: Active Protocol: Activity Type Activity Date Activity User E-sign Co-sign Detail Recorded Client Recorded Date Recorded By Document 09/07/24 11:14 DL [id number] 09/07/24 11:19 DL Document 09/14/24 11:28 DL [id number] 09/14/24 11:31 DL Document 09/21/24 11:30 MT [id number] 09/21/24 11:39 MT 09/07/24 09/14/24 09/21/24 11:14 11:28 11:30 Wound Care Center Nurse 3 19. sacral -Ulcer Cleansing Rinsed/ Rinsed/ Irrigated with Irrigated with Saline Saline -Foul Odor after Cleansing No No -Primary Dressing Applied Fibracol Plus Silicone Border 4x4,NonAdherent Foam 4x4 Contact Layer, Silicone Border Foam 4x4 -Other Dressing FLuffed gauze -Fibracol Plus 4x4 1 -Silicone Border Foam 4x4 1 1 #18 L Grt Toe -Ulcer Cleansing Rinsed/ Rinsed/ Irrigated with Irrigated with Saline Saline -Foul Odor after Cleansing No No No -Primary Dressing Applied Silicone Border NonAdherent Silicone Border Foam 4x4 Contact Layer, Foam 4x4 Silicone Border Foam 4x4 -Other Dressing Surgafoam today fibracol xeroform/ gauze / apperture pad -Silicone Border Foam 4x4 1 1 1 #14 Right Buttock -Ulcer Cleansing Rinsed/ Rinsed/ Not Cleansed Irrigated with Irrigated with Saline Saline -Foul Odor after Cleansing No No No -Primary Dressing Applied Promogran, Promogran, Silicone Border Silicone Border Silicone Border Foam 4x4 Foam 4x4, Foam 4x4 Silicone Border Foam 6x6 -Other Dressing Epifix/ fluffed gauze/ -Promogran 1 1 -Silicone Border Foam 4x4 1 1 1 -Silicone Border Foam 6x6 1 -Wound Comment(s) Skin prep and 4x4 silicone border dressing to blister. 2 border foam noted on R Buttocks nurse 3. Treatment Response Procedure Procedure Tolerated Well Tolerated Well Pain Scale: 0-10 Numeric Is Patient Pain Free? Yes Yes Yes WC - Visit Discharge Discharge Condition Stable Stable Stable Ambulatory Status Wheelchair Wheelchair Transportation Private Auto Private Auto Trans Notes: Dressing Dressings applied today applied today per Nora Hollis. per Jessica Tsang. Facility Type Clinical Trial [facility] Orders Sent Yes Yes Yes Additional Wound Wound Grade/Stage: Stage II Additional Wound Wound debrided: Left sacral blister Type of Debridement: Excisional debridement Anesthesia Used: 5% Lidocaine Gel Depth: Down to and including healthy tissue Percentage of wound debrided: 100 Instrument Used: 5mm curette Tissue Removed: Fibrin Severity: Limited To Skin Breakdown Amount of bleeding with debridement: Mild Bleeding Controlled with: Compression and gauze Patient tolerated procedure: Patient tolerated procedure well Assessment/Plan Assessment/Plan (1) Decubitus ulcer of sacral region, stage 2: CODE(S): L89.152 - Pressure ulcer of sacral region, stage 2 PLAN: Wound resolved and patient is to just sure prep pad and protect (2) Decubitus ulcer of toe, stage 2: CODE(S): L89.892 - Pressure ulcer of other site, stage 2 QUALIFIERS: Laterality: left Qualified Code(s): L89.892 - Pressure ulcer of other site, stage 2 PLAN: Wash area with Dial soap and pat dry with water and apply Xeroform and Adaptic with a foam dressing over top every day Follow-up 1 week (3) Chronic anemia: CODE(S): D64.9 - Anemia, unspecified PLAN: Continue ferrous sulfate 325 mg to twice a day with stool softeners B12 injections 1000 mcg q. weekly Improved immensely she said at normal rate at this time (4) Decubitus ulcer of right buttock, stage 4: CODE(S): L89.314 - Pressure ulcer of right buttock, stage 4 PLAN: EpiFix #5 was applied to the right buttocks area and we will see how that works follow-up in a week (5) Skin ulcer of left great toe: CODE(S): L97.529 - Non-pressure chronic ulcer of other part of left foot with unspecified severity QUALIFIERS: Non-pressure ulcer stage: limited to breakdown of skin Qualified Code(s): L97.521 - Non-pressure chronic ulcer of other part of left foot limited to breakdown of skin (6) Decubitus ulcer of left ischium, stage 2: CODE(S): L89.322 - Pressure ulcer of left buttock, stage 2 PLAN: Resolved and monitor may use Skin-Prep as needed (7) Ulcer of anus: CODE(S): K62.6 - Ulcer of anus and rectum PLAN: Resolved and monitor use Skin-Prep as needed (8) Non-pressure chronic ulcer of buttock: CODE(S): L98.419 - Non-pressure chronic ulcer of buttock with unspecified severity QUALIFIERS: Non-pressure ulcer stage: limited to breakdown of skin Qualified Code(s): L98.411 - Non-pressure chronic ulcer of buttock limited to breakdown of skin PLAN: Wash area with antibacterial soap and water and apply Fibracol with Adaptic over top and a foam SAP [place] dressing every day follow-up in 1 week 09/21/24 1211 <Electronically signed by Evelyn Robertson NP DATA SECURITY CONSULTANT-C> Cosigner Signature (if applicable): CC: ~ Signed [facility] Work Phone: [phone] Progress note Author Evelyn Robertson [facility] Note Date/Time September 14, 2024 12:08 pm [facility] [address] [place] [address] Progress Note - Wound Care 09/14/24 1158 MR#: [id number] Acct: [id number] Name: ALEENA ANDREA Rep #:[id number] 11 : 1950 74 From: Evelyn Robertson NP DATA SECURITY CONSULTANT-C PCP: Dr. 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 Patient underwent treatment for colitis as an inpatient in March 2024 and developed a right ischial pressure ulcer. It was debrided twice at [facility]. She has been following for wound care with a nurse practitioner in the wound care center, whoreferred her to me for second opinion to see if she needs surgery. Patient lives at home in an apartment usually by herself. She does not have a pressure offloading bed. She is quite high functioning; however, she is currently in a nursing facility for wound care ever since the recent hospital admission. 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 She has an adult daughter in [place] and an adult daughter here in [place] whoare both very involved and supportive. Progress of Wound: Right ischium wound is healed. She developed a blister from putting a heating pad on her buttocks because she was cold. About the size of a quarter now it is flat and smooth we will apply Fibracol and Adaptic on top of it to keep it from getting infected with a foam dressing, [place] SAP pad. The left great toe helix is open again and we feel it is from her laying on her stomach and she is not padding it properly and putting a shoe or a sock or a foam dressing over top of that the protected and she is opening it. We will apply fibrocal to the left helix with a [place] SAP dressing over top seems to be doing well with that. It is measuring smaller. Right buttocks continues to be hyper granulated and we will try hitting it with some nitrous sticks and put a dry dressing on for 24 hours and then she can restart her regular dressing of Promogran with a foam dressing over top .Stop using a heating pad ever. Subjective Subjective Patient pleased with outcome so far Objective Data Objective Data As stated above everything is smaller healing better the right buttocks is like very hyper granulated so we will continue to hit it with nitrous and then she can cover it the next day with Promogran and tubing get skin to cover it and close it. Patient is still encouraged to offload she is not allowed to get up and sit in her chair. Vital Signs: Vital Signs Temp Pulse Resp BP 97.6 F L 61 18 130/73 H 09/14/24 10:49 09/14/24 10:49 09/14/24 10:49 09/14/24 10:49 Weight: 89 lb 6.4 oz Body Mass Index (BMI) 16.9 Lab / Micro Data Attestation: I reviewed the patient's lab results. Physical Exam Const oriented x3 General Appearance: cooperative Orientation / Consciousness: oriented to person, oriented to place and oriented to time Exam Limitations: no limitations Nutritional Appearance: cachectic, underweight and thin HEENT normocephalic Head and Scalp: normal to inspection External Ear: external ears normal Eyes PERRL General Eye: normal appearance of both eyes Neck full ROM General: normal visual inspection Resp normal respiratory effort Effort and Inspection: able to speak in complete sentences Auscultation: clear to auscultation bilaterally Cardio regular rate and regular rhythm Palpation: normal PMI Rate: regular rate Rhythm: regular rhythm GI Rectal Exam: visual inspection abnormal, fistula and other Other Details: Open wound left buttocks and perirectal may be fistula going on. Back/Spine Back/Spine Narrative: Paralysis from waist down Cervical Spine: cervical ROM normal Pelvis: buttocks abnormal right and other soft tissue findings Wound on her coccyx area Skin no rashes or lesions noted Skin Narrative: Open wounds on left buttocks with positive depth and infection possible sepsis sacral area open area nonhealing and perirectal area possibly a fistula. Wounds: wounds noted Wound Narrative: Open wound on coccyx stage II Right buttocks wound stage IV Neuro oriented x3 Psych Appearance: grossly normal Attitude: calm Activity / Motor Behavior: appropriate eye contact Speech: normal speech Mood & Affect: euthymic mood Thought Process: normal thought process Thought Content: normal thought content Attention / Concentration: attention grossly intact Memory / Cognition: memory grossly intact Insight: insight good Judgement: judgement good Debridement Note Debridement Note Wound debrided: Right buttocks Laterality: Right Wound Grade/Stage: Stage IV Type of Debridement: Selective debridement Anesthesia Used: 5% Lidocaine Gel Depth: in the subcutaneous layer Percentage of wound debrided: 100 Instrument Used: 5mm curette Tissue Removed: Fibrin Severity: Fat Layer Exposed Amount of bleeding with debridement: Mild Bleeding Controlled with: Compression and gauze Patient tolerated procedure: Patient tolerated procedure well Post-Debridement Measurements and Additional Note: Post-Debridement Measurements/Treatment - Nurse 1 - General Ulcer Assessment Start: 09/07/24 10:22 Freq: Status: Active Protocol: JOSEPHINE Activity Type Activity Date Activity User E-sign Co-sign Detail Recorded Client Recorded Date Recorded By Document 09/07/24 10:22 DL [id number] 09/07/24 10:35 DL Document 09/14/24 10:49 RB [id number] 09/14/24 10:53 RB 09/07/24 09/14/24 10:22 10:49 - Today's Visit Information Type of service Follow-up Visit Follow-up Visit (Physician/LIAISON OFFICER (Physician/LIAISON OFFICER ) ) Arrival Mode Wheelchair Wheelchair Transfer Assistance Manual Manual Transfer Assist (Other) x2 Patient Identification Verified (Name & Yes Yes ) Patient Requires Transmission-Based No No Precautions Height and Weight Body Mass Index (BMI) 16.9 16.9 BMI Classification Underweight Underweight Vital Signs Temperature (97.8 F-99.1 F) 97.8 F 97.6 F L Temperature Source Temporal Temporal Pulse Rate (60-100) 79 61 Pulse Location Monitor Monitor Respiratory Rate (12-18) 16 18 Respiratory rate source Observation Observation Blood Pressure (90/60-120/80) 128/72 H 130/73 H Blood Pressure Mean (mm Hg) 90 92 Source Monitor Monitor Position Semi-Fowlers Blood Pressure Location Right Arm History Since Last Visit- (Skip if this is Patient's initial visit) Have you changed medications since your No No last visit? Any new allergies or adverse reactions No No Had a fall/change in ADL's that may No No increase risk of falls Signs or symptoms of abuse and/or No No neglect since last visit Have you been in the hospital since your No No last visit? Has dressing in place as prescribed Yes Yes Has compression in place as prescribed N/A N/A Has offloadiing in place as prescribed Yes N/A Experienced any changes in pain level or No No management Pain Scale: 0-10 Numeric Is Patient Pain Free? Yes No FROM WAIST DOWN TO FEET -Description Sharp -Intensity 7 -Duration (hours) Chronic -Pain Behavior No Change in Behavior -Pain Aggravating Factors Changing Position -Alleviating Factors/Interventions Medication -Effectiveness of Alleviating Factor/ Moderately Intervention effective WC - Nurse 1 - General Ulcer Measurement Start: 09/07/24 10:22 Freq: Status: Active Protocol: Activity Type Activity Date Activity User E-sign Co-sign Detail Recorded Client Recorded Date Recorded By Document 09/07/24 10:22 DL [id number] 09/07/24 10:35 DL Document 09/14/24 10:49 RB [id number] 09/14/24 10:53 RB 09/07/24 09/14/24 10:22 10:49 Wound Center Nurse 1 #17- L. Ischium -Current Size (cm) - Length 0 -Current Size (cm) - Width 0 -Current Size (cm) - Depth 0 -Total Square Cm 0 -Photo Taken Yes -Exudate Amt None Present -Wound Margin Flat & Intact -Granulation Amt Large (67-100%) -Granulation Quality Mcdougal -Necrosis Amt None Present (0 %) -Structure Exposed N/A -Texture (Leyla-wound Skin Appearance) Scarring -Moisture (Leyla-wound Skin Appearance) No Abnormality -Color (Leyla-wound Skin Appearance) No Abnormality -Temperature (Leyla-wound Skin No Abnormality Appearance) (Pt Warm) -Tenderness on Palpation (Leyla-wound No Skin Appearance) -Foul Odor after Cleansing No 19. sacral -Combined with other wound No -Current Size (cm) - Length 1.4 -Current Size (cm) - Width 0.7 -Current Size (cm) - Depth 0.1 -Total Square Cm 0.98 -Photo Taken Yes -Tunneling No -Undermining/Tunneling No -Circular Undermining No -Exudate Amt Medium -Exudate Type Serosanguineous -Wound Margin Distinct, Outline Attached -Granulation Amt Medium (34-66%) -Granulation Quality Mcdougal -Slough/Fibrin Yes -Necrosis Amt Small (1-33%) -Necrotic Tissue Type Adherent Slough -Structure Exposed N/A -Texture (Leyla-wound Skin Appearance) Assessed -Moisture (Leyla-wound Skin Appearance) Assessed -Color (Leyla-wound Skin Appearance) Erythema -Temperature (Leyla-wound Skin No Abnormality Appearance) (Pt Warm) -Tenderness on Palpation (Leyla-wound No Skin Appearance) -Ulcer Cleansing Wound Cleanser -Foul Odor after Cleansing No -Anesthetic Used 5% Lidocaine Gel #18 L Grt Toe -Combined with other wound No -Current Size (cm) - Length 1 0.8 -Current Size (cm) - Width 0.8 1.4 -Current Size (cm) - Depth 0.1 0.1 -Total Square Cm 0.8 1.12 -Photo Taken Yes Yes -Tunneling No -Undermining/Tunneling No -Circular Undermining No -Exudate Amt Medium Medium -Exudate Type Serosanguineous Serosanguineous -Wound Margin Distinct, Distinct, Outline Outline Attached Attached -Granulation Amt Medium (34-66%) Medium (34-66%) -Granulation Quality Mcdougal Mcdougal -Slough/Fibrin Yes -Necrosis Amt Medium (34-66%) Small (1-33%) -Necrotic Tissue Type Adherent Slough Adherent Slough -Structure Exposed N/A N/A -Texture (Leyla-wound Skin Appearance) Scarring Assessed -Moisture (Leyla-wound Skin Appearance) No Abnormality Assessed -Color (Leyla-wound Skin Appearance) No Abnormality Assessed -Temperature (Leyla-wound Skin No Abnormality No Abnormality Appearance) (Pt Warm) (Pt Warm) -Tenderness on Palpation (Leyla-wound No Skin Appearance) -Ulcer Cleansing Soap and Water Wound Cleanser -Foul Odor after Cleansing No No -Anesthetic Used 5% Lidocaine 5% Lidocaine Gel Gel #14 Right Buttock -Combined with other wound No -Current Size (cm) - Length 2.4 2.6 -Current Size (cm) - Width 1.1 0.7 -Current Size (cm) - Depth 0.1 0.1 -Total Square Cm 2.64 1.82 -Photo Taken Yes Yes -Tunneling No -Undermining/Tunneling No -Circular Undermining No -Exudate Amt Medium Medium -Exudate Type Serosanguineous Serosanguineous -Wound Margin Distinct, Distinct, Outline Outline Attached Attached -Granulation Amt Large (67-100%) Medium (34-66%) -Granulation Quality Hyper- Mcdougal granulation, Mcdougal -Slough/Fibrin Yes -Necrosis Amt None Present (0 Medium (34-66%) %) -Necrotic Tissue Type Adherent Slough -Structure Exposed N/A N/A -Texture (Leyla-wound Skin Appearance) Scarring Assessed -Moisture (Leyla-wound Skin Appearance) No Abnormality Assessed -Color (Leyla-wound Skin Appearance) No Abnormality Assessed -Temperature (Leyla-wound Skin No Abnormality No Abnormality Appearance) (Pt Warm) (Pt Warm) -Tenderness on Palpation (Leyla-wound No No Skin Appearance) -Ulcer Cleansing Soap and Water Wound Cleanser -Foul Odor after Cleansing No No -Anesthetic Used 5% Lidocaine 5% Lidocaine Gel Gel -Wound Comment(s) Intact blister noted to R Buttock/Back, states was using a heating pad. WC - Nurse 2 - General Ulcer CM Notes Start: 09/07/24 10:22 Freq: Status: Active Protocol: Activity Type Activity Date Activity User E-sign Co-sign Detail Recorded Client Recorded Date Recorded By Document 09/07/24 10:45 [facility] [id number] 09/07/24 10:57 BM Document 09/14/24 11:01 BMF [id number] 09/14/24 11:12 BMF 09/07/24 09/14/24 10:45 11:01 Wound Center Nurse 2 #17- L. Ischium -Time 10:47 -Procedure Performed No -Post Debridement (cm) - Length 0 -Post Debridement (cm) - Width 0 -Post Debridement (cm) - Depth 0 -Total Square (Post) (cm) 0 -Area of Debridement (cm) - Length 0 -Area of Debridement (cm) - Width 0 -Total Square (Area) (cm) 0 -Wound/Ulcer Outcome Healed- Epithelialized -Bleeding Controlled with NA 19. sacral -Time 11:06 -Correct Patient Yes -Correct Side, Site, Position Yes -Correct Procedure Yes -Procedure Performed Yes -Type of Procedure Debridement -Clinical Debridement Subcutaneous -Tissue Removed Subcutaneous -Post Debridement (cm) - Length 1.5 -Post Debridement (cm) - Width 1.7 -Post Debridement (cm) - Depth 0.1 -Total Square (Post) (cm) 2.55 -Area of Debridement (cm) - Length 1.5 -Area of Debridement (cm) - Width 1.7 -Total Square (Area) (cm) 2.55 -Tunneling No -Undermining/Tunneling No -Circular Undermining No -Wound/Ulcer Outcome Not Healed -Ulcer Cleansing Rinsed/ Irrigated with Saline -Foul Odor after Cleansing No -Bioengineered Tissue No -Bleeding Controlled with Pressure -Treatment Response Procedure Tolerated Well -Debridement - Subq, 1st 20sq cm No #18 L Grt Toe -Time 10:47 11:08 -Correct Patient Yes Yes -Correct Side, Site, Position Yes Yes -Correct Procedure Yes Yes -Procedure Performed Yes Yes -Type of Procedure Debridement Debridement -Clinical Debridement Subcutaneous Subcutaneous -Tissue Removed Subcutaneous Subcutaneous -Post Debridement (cm) - Length 1.4 1.3 -Post Debridement (cm) - Width 1.8 1.5 -Post Debridement (cm) - Depth 0.1 0.1 -Total Square (Post) (cm) 2.52 1.95 -Area of Debridement (cm) - Length 1.4 1.3 -Area of Debridement (cm) - Width 1.8 1.5 -Total Square (Area) (cm) 2.52 1.95 -Tunneling No No -Undermining/Tunneling No No -Circular Undermining No No -Wound/Ulcer Outcome Not Healed Not Healed -Ulcer Cleansing Rinsed/ Rinsed/ Irrigated with Irrigated with Saline Saline -Foul Odor after Cleansing No No -Bioengineered Tissue No No -Bleeding Controlled with Pressure, Pressure Surgifoam ? x 2 3/8 (sm) -Surgifoam (3/4 x 2 3/8) Small 1 -Treatment Response Procedure Procedure Tolerated Well Tolerated Well -Debridement - Subq, 1st 20sq cm Yes No #14 Right Buttock -Time 10:45 11:04 -Correct Patient Yes Yes -Correct Side, Site, Position Yes Yes -Correct Procedure Yes Yes -Procedure Performed Yes Yes -Type of Procedure Debridement Debridement -Clinical Debridement Subcutaneous Subcutaneous -Tissue Removed Subcutaneous Subcutaneous -Post Debridement (cm) - Length 3 2 -Post Debridement (cm) - Width 1 1.5 -Post Debridement (cm) - Depth 0.1 0.1 -Total Square (Post) (cm) 3 3.0 -Area of Debridement (cm) - Length 3 2 -Area of Debridement (cm) - Width 1 1.5 -Total Square (Area) (cm) 3 3.0 -Tunneling No No -Undermining/Tunneling No No -Circular Undermining No No -Wound/Ulcer Outcome Not Healed Not Healed -Ulcer Cleansing Rinsed/ Rinsed/ Irrigated with Irrigated with Saline Saline -Foul Odor after Cleansing No No -Bioengineered Tissue No No -Bleeding Controlled with Pressure Pressure,Silver Nitrate ($) -Treatment Response Procedure Procedure Tolerated Well Tolerated Well -Debridement - Subq, 1st 20sq cm No Yes Pain Scale: 0-10 Numeric Is Patient Pain Free? Yes Yes - Nurse 3 - General Ulcer D/C NN Start: 09/07/24 10:22 Freq: Status: Active Protocol: Activity Type Activity Date Activity User E-sign Co-sign Detail Recorded Client Recorded Date Recorded By Document 09/07/24 11:14 DL [id number] 09/07/24 11:19 DL Document 09/14/24 11:28 DL [id number] 09/14/24 11:31 DL 09/07/24 09/14/24 11:14 11:28 Wound Care Center Nurse 3 19. sacral -Ulcer Cleansing Rinsed/ Irrigated with Saline -Foul Odor after Cleansing No -Primary Dressing Applied Fibracol Plus 4x4,NonAdherent Contact Layer, Silicone Border Foam 4x4 -Fibracol Plus 4x4 1 -Silicone Border Foam 4x4 1 #18 L Grt Toe -Ulcer Cleansing Rinsed/ Irrigated with Saline -Foul Odor after Cleansing No No -Primary Dressing Applied Silicone Border NonAdherent Foam 4x4 Contact Layer, Silicone Border Foam 4x4 -Other Dressing Surgafoam today fibracol -Silicone Border Foam 4x4 1 1 #14 Right Buttock -Ulcer Cleansing Rinsed/ Rinsed/ Irrigated with Irrigated with Saline Saline -Foul Odor after Cleansing No No -Primary Dressing Applied Promogran, Promogran, Silicone Border Silicone Border Foam 4x4, Foam 4x4 Silicone Border Foam 6x6 -Promogran 1 1 -Silicone Border Foam 4x4 1 1 -Silicone Border Foam 6x6 1 -Wound Comment(s) Skin prep and 4x4 silicone border dressing to blister. 2 border foam noted on R Buttocks nurse 3. Treatment Response Procedure Tolerated Well Pain Scale: 0-10 Numeric Is Patient Pain Free? Yes Yes WC - Visit Discharge Discharge Condition Stable Stable Ambulatory Status Wheelchair Wheelchair Transportation Private Auto Private Auto Notes: Dressing applied today per Nora Hollis. Facility Type Clinical Trial Manager Care Facility Orders Sent Yes Yes Additional Wound Wound debrided: Left hallux Shearing Laterality: Left Wound Grade/Stage: Stage II Type of Debridement: Excisional debridement Anesthesia Used: 5% Lidocaine Gel Depth: Down to and including healthy tissue Percentage of wound debrided: 100 Instrument Used: 5mm curette Severity: Limited To Skin Breakdown Amount of bleeding with debridement: Moderate Bleeding Controlled with: Gel Foam Patient tolerated procedure: Patient tolerated procedure well Additional Wound Wound debrided: Left sacral blister Type of Debridement: Excisional debridement Anesthesia Used: 5% Lidocaine Gel Depth: Down to and including healthy tissue Percentage of wound debrided: 100 Instrument Used: 5mm curette Tissue Removed: Fibrin Severity: Limited To Skin Breakdown Amount of bleeding with debridement: Mild Bleeding Controlled with: Compression and gauze Patient tolerated procedure: Patient tolerated procedure well Assessment/Plan Assessment/Plan (1) Decubitus ulcer of sacral region, stage 2: CODE(S): L89.152 - Pressure ulcer of sacral region, stage 2 PLAN: Wound resolved and patient is to just sure prep pad and protect (2) Decubitus ulcer of toe, stage 2: CODE(S): L89.892 - Pressure ulcer of other site, stage 2 QUALIFIERS: Laterality: left Qualified Code(s): L89.892 - Pressure ulcer of other site, stage 2 PLAN: Wash area with Dial soap and pat dry with water and apply Fibracol to wound base cover with a Adaptic and a foam dressing every day (3) Chronic anemia: CODE(S): D64.9 - Anemia, unspecified PLAN: Continue ferrous sulfate 325 mg to twice a day with stool softeners B12 injections 1000 mcg q. weekly Improved immensely she said at normal rate at this time (4) Decubitus ulcer of right buttock, stage 4: CODE(S): L89.314 - Pressure ulcer of right buttock, stage 4 PLAN: Wash with antibacterial soap and water and apply sure prep and Promogran to the area and cover with absorbent dressing (5) Skin ulcer of left great toe: CODE(S): L97.529 - Non-pressure chronic ulcer of other part of left foot with unspecified severity QUALIFIERS: Non-pressure ulcer stage: limited to breakdown of skin Qualified Code(s): L97.521 - Non-pressure chronic ulcer of other part of left foot limited to breakdown of skin (6) Decubitus ulcer of left ischium, stage 2: CODE(S): L89.322 - Pressure ulcer of left buttock, stage 2 PLAN: Resolved and monitor may use Skin-Prep as needed (7) Ulcer of anus: CODE(S): K62.6 - Ulcer of anus and rectum PLAN: Resolved and monitor use Skin-Prep as needed (8) Non-pressure chronic ulcer of buttock: CODE(S): L98.419 - Non-pressure chronic ulcer of buttock with unspecified severity QUALIFIERS: Non-pressure ulcer stage: limited to breakdown of skin Qualified Code(s): L98.411 - Non-pressure chronic ulcer of buttock limited to breakdown of skin PLAN: Wash area with antibacterial soap and water and apply Fibracol with Adaptic over top and a foam SAP [place] dressing every day follow-up in 1 week 09/14/24 1208 <Electronically signed by Evelyn Robertson NP DATA SECURITY CONSULTANT-C> Cosigner Signature (if applicable): CC: ~ Signed [facility] Work Phone: [phone] 249-394305-07-2025 Progress note Author Evelyn Robertson [facility] Note Date/Time September 07, 2024 12:47p m [facility] [address] [place] [id number] Progress Note - Wound Care 09/07/24 1239 MR#: [id number] Acct: [id number] Name: ALEENA ANDREA Rep #:[id number] 18 : 1950 74 From: Evelyn Robertson NP DATA SECURITY CONSULTANT-C PCP: Dr. 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 Patient underwent treatment for colitis as an inpatient in March 2024 and developed a right ischial pressure ulcer. It was debrided twice at [facility]. She has been following for wound care with a nurse practitioner in the wound care center, whoreferred her to me for second opinion to see if she needs surgery. Patient lives at home in an apartment usually by herself. She does not have a pressure offloading bed. She is quite high functioning; however, she is currently in a nursing facility for wound care ever since the recent hospital admission. 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 She has an adult daughter in [place] and an adult daughter here in [place] whoare both very involved and supportive. Progress of Wound: Right ischium wound is doing very well without any more epi it is filling in on its own and it still has some hypergranulation but it is filling in in the crevice where it was much deeper. No sign of infection healing well measurements appear to be smaller. She developed a blister from putting a heating pad on her buttocks because she was cold. About the size of a quarter still blistered told her to pad and protect it with sure strip and an ABD pad over top or a [place] SAP pad. The left great toe helix is open again and we feel it is from her laying on her stomach and she is not padding it properly and putting a shoe or a sock or a foam dressing over top of that the protected and she is opening it. We will applyfibber call to the left helix with a [place] SAP dressing over top right buttocks we will continue the Promogran with a foam dressing over top and Skin-Prep to the left ischium blister with a foam dressing over top for protection. Stop using a heating pad ever. Subjective Subjective Patient was agreeable to plan. Objective Data Objective Data As stated above everything is measuring smaller than it was incidences the blister because she used a heating pad which she should not be using since she has no feelings from her waist down. She continues to offload and to eat properly and she appears to be healing well. Vital Signs: Vital Signs Temp Pulse Resp BP 97.8 F 79 16 128/72 H 09/07/24 10:22 09/07/24 10:22 09/07/24 10:22 09/07/24 10:22 Weight: 89 lb 6.4 oz Body Mass Index (BMI) 16.9 Lab / Micro Data Attestation: I reviewed the patient's lab results. Physical Exam Const oriented x3 General Appearance: cooperative Orientation / Consciousness: oriented to person, oriented to place and oriented to time Exam Limitations: no limitations Nutritional Appearance: cachectic, underweight and thin HEENT normocephalic Head and Scalp: normal to inspection External Ear: external ears normal Eyes PERRL General Eye: normal appearance of both eyes Neck full ROM General: normal visual inspection Resp normal respiratory effort Effort and Inspection: able to speak in complete sentences Auscultation: clear to auscultation bilaterally Cardio regular rate and regular rhythm Palpation: normal PMI Rate: regular rate Rhythm: regular rhythm GI Rectal Exam: visual inspection abnormal, fistula and other Other Details: Open wound left buttocks and perirectal may be fistula going on. Back/Spine Back/Spine Narrative: Paralysis from waist down Cervical Spine: cervical ROM normal Pelvis: buttocks abnormal right and other soft tissue findings Wound on her coccyx area Skin no rashes or lesions noted Skin Narrative: Open wounds on left buttocks with positive depth and infection possible sepsis sacral area open area nonhealing and perirectal area possibly a fistula. Wounds: wounds noted Wound Narrative: Open wound on coccyx stage II Right buttocks wound stage IV Neuro oriented x3 Psych Appearance: grossly normal Attitude: calm Activity / Motor Behavior: appropriate eye contact Speech: normal speech Mood & Affect: euthymic mood Thought Process: normal thought process Thought Content: normal thought content Attention / Concentration: attention grossly intact Memory / Cognition: memory grossly intact Insight: insight good Judgement: judgement good Debridement Note Debridement Note Wound debrided: Right buttocks Laterality: Right Wound Grade/Stage: Stage IV Type of Debridement: Selective debridement Anesthesia Used: 5% Lidocaine Gel Depth: in the subcutaneous layer Percentage of wound debrided: 100 Instrument Used: 5mm curette Tissue Removed: Fibrin Severity: Fat Layer Exposed Amount of bleeding with debridement: Mild Bleeding Controlled with: Compression and gauze Patient tolerated procedure: Patient tolerated procedure well Post-Debridement Measurements and Additional Note: Post-Debridement Measurements/Treatment - Nurse 1 - General Ulcer Assessment Start: 09/07/24 10:22 Freq: Status: Active Protocol: JOSEPHINE Activity Type Activity Date Activity User E-sign Co-sign Detail Recorded Client Recorded Date Recorded By Document 09/07/24 10:22 DL [id number] 09/07/24 10:35 DL 09/07/24 10:22 WC - Today's Visit Information Type of service Follow-up Visit (Physician/LIAISON OFFICER ) Arrival Mode Wheelchair Transfer Assistance Manual Transfer Assist (Other) x2 Patient Identification Verified (Name & Yes ) Patient Requires Transmission-Based No Precautions Height and Weight Body Mass Index (BMI) 16.9 BMI Classification Underweight Vital Signs Temperature (97.8 F-99.1 F) 97.8 F Temperature Source Temporal Pulse Rate (60-100) 79 Pulse Location Monitor Respiratory Rate (12-18) 16 Respiratory rate source Observation Blood Pressure (90/60-120/80) 128/72 H Blood Pressure Mean (mm Hg) 90 Source Monitor History Since Last Visit- (Skip if this is Patient's initial visit) Have you changed medications since your No last visit? Any new allergies or adverse reactions No Had a fall/change in ADL's that may No increase risk of falls Signs or symptoms of abuse and/or No neglect since last visit Have you been in the hospital since your No last visit? Has dressing in place as prescribed Yes Has compression in place as prescribed N/A Has offloadiing in place as prescribed Yes Experienced any changes in pain level or No management Pain Scale: 0-10 Numeric Is Patient Pain Free? Yes - Nurse 1 - General Ulcer Measurement Start: 09/07/24 10:22 Freq: Status: Active Protocol: Activity Type Activity Date Activity User E-sign Co-sign Detail Recorded Client Recorded Date Recorded By Document 09/07/24 10:22 DL [id number] 09/07/24 10:35 DL 09/07/24 10:22 Wound Center Nurse 1 #17- L. Ischium -Current Size (cm) - Length 0 -Current Size (cm) - Width 0 -Current Size (cm) - Depth 0 -Total Square Cm 0 -Photo Taken Yes -Exudate Amt None Present -Wound Margin Flat & Intact -Granulation Amt Large (67-100%) -Granulation Quality Mcdougal -Necrosis Amt None Present (0 %) -Structure Exposed N/A -Texture (Leyla-wound Skin Appearance) Scarring -Moisture (Leyla-wound Skin Appearance) No Abnormality -Color (Leyla-wound Skin Appearance) No Abnormality -Temperature (Leyla-wound Skin No Abnormality Appearance) (Pt Warm) -Tenderness on Palpation (Leyla-wound No Skin Appearance) -Foul Odor after Cleansing No 318 L Grt Toe -Current Size (cm) - Length 1 -Current Size (cm) - Width 0.8 -Current Size (cm) - Depth 0.1 -Total Square Cm 0.8 -Photo Taken Yes -Exudate Amt Medium -Exudate Type Serosanguineous -Wound Margin Distinct, Outline Attached -Granulation Amt Medium (34-66%) -Granulation Quality Mcdougal -Necrosis Amt Medium (34-66%) -Necrotic Tissue Type Adherent Slough -Structure Exposed N/A -Texture (Leyla-wound Skin Appearance) Scarring -Moisture (Leyla-wound Skin Appearance) No Abnormality -Color (Leyla-wound Skin Appearance) No Abnormality -Temperature (Leyla-wound Skin No Abnormality Appearance) (Pt Warm) -Ulcer Cleansing Soap and Water -Foul Odor after Cleansing No -Anesthetic Used 5% Lidocaine Gel #14 Right Buttock -Current Size (cm) - Length 2.4 -Current Size (cm) - Width 1.1 -Current Size (cm) - Depth 0.1 -Total Square Cm 2.64 -Photo Taken Yes -Exudate Amt Medium -Exudate Type Serosanguineous -Wound Margin Distinct, Outline Attached -Granulation Amt Large (67-100%) -Granulation Quality Hyper- granulation, Mcdougal -Necrosis Amt None Present (0 %) -Structure Exposed N/A -Texture (Leyla-wound Skin Appearance) Scarring -Moisture (Leyla-wound Skin Appearance) No Abnormality -Color (Leyla-wound Skin Appearance) No Abnormality -Temperature (Leyla-wound Skin No Abnormality Appearance) (Pt Warm) -Tenderness on Palpation (Leyla-wound No Skin Appearance) -Ulcer Cleansing Soap and Water -Foul Odor after Cleansing No -Anesthetic Used 5% Lidocaine Gel -Wound Comment(s) Intact blister noted to R Buttock/Back, states was using a heating pad. WC - Nurse 2 - General Ulcer CM Notes Start: 09/07/24 10:22 Freq: Status: Active Protocol: Activity Type Activity Date Activity User E-sign Co-sign Detail Recorded Client Recorded Date Recorded By Document 09/07/24 10:45 [facility] [id number] 09/07/24 10:57 [facility] 09/07/24 10:45 Wound Center Nurse 2 #17- L. Ischium -Time 10:47 -Procedure Performed No -Post Debridement (cm) - Length 0 -Post Debridement (cm) - Width 0 -Post Debridement (cm) - Depth 0 -Total Square (Post) (cm) 0 -Area of Debridement (cm) - Length 0 -Area of Debridement (cm) - Width 0 -Total Square (Area) (cm) 0 -Wound/Ulcer Outcome Healed- Epithelialized -Bleeding Controlled with NA 318 L Grt Toe -Time 10:47 -Correct Patient Yes -Correct Side, Site, Position Yes -Correct Procedure Yes -Procedure Performed Yes -Type of Procedure Debridement -Clinical Debridement Subcutaneous -Tissue Removed Subcutaneous -Post Debridement (cm) - Length 1.4 -Post Debridement (cm) - Width 1.8 -Post Debridement (cm) - Depth 0.1 -Total Square (Post) (cm) 2.52 -Area of Debridement (cm) - Length 1.4 -Area of Debridement (cm) - Width 1.8 -Total Square (Area) (cm) 2.52 -Tunneling No -Undermining/Tunneling No -Circular Undermining No -Wound/Ulcer Outcome Not Healed -Ulcer Cleansing Rinsed/ Irrigated with Saline -Foul Odor after Cleansing No -Bioengineered Tissue No -Bleeding Controlled with Pressure, Surgifoam ? x 2 3/8 () -Surgifoam (3/4 x 2 3/8) Small 1 -Treatment Response Procedure Tolerated Well -Debridement - Subq, 1st 20sq cm Yes #14 Right Buttock -Time 10:45 -Correct Patient Yes -Correct Side, Site, Position Yes -Correct Procedure Yes -Procedure Performed Yes -Type of Procedure Debridement -Clinical Debridement Subcutaneous -Tissue Removed Subcutaneous -Post Debridement (cm) - Length 3 -Post Debridement (cm) - Width 1 -Post Debridement (cm) - Depth 0.1 -Total Square (Post) (cm) 3 -Area of Debridement (cm) - Length 3 -Area of Debridement (cm) - Width 1 -Total Square (Area) (cm) 3 -Tunneling No -Undermining/Tunneling No -Circular Undermining No -Wound/Ulcer Outcome Not Healed -Ulcer Cleansing Rinsed/ Irrigated with Saline -Foul Odor after Cleansing No -Bioengineered Tissue No -Bleeding Controlled with Pressure -Treatment Response Procedure Tolerated Well -Debridement - Subq, 1st 20sq cm No Pain Scale: 0-10 Numeric Is Patient Pain Free? Yes - Nurse 3 - General Ulcer D/C NN Start: 09/07/24 10:22 Freq: Status: Active Protocol: Activity Type Activity Date Activity User E-sign Co-sign Detail Recorded Client Recorded Date Recorded By Document 09/07/24 11:14 DL [id number] 09/07/24 11:19 DL 09/07/24 11:14 [facility] Center Nurse 3 318 L Grt Toe -Foul Odor after Cleansing No -Primary Dressing Applied Silicone Border Foam 4x4 -Other Dressing Surgafoam today -Silicone Border Foam 4x4 1 #14 Right Buttock -Ulcer Cleansing Rinsed/ Irrigated with Saline -Foul Odor after Cleansing No -Primary Dressing Applied Promogran, Silicone Border Foam 4x4, Silicone Border Foam 6x6 -Promogran 1 -Silicone Border Foam 4x4 1 -Silicone Border Foam 6x6 1 -Wound Comment(s) Skin prep and 4x4 silicone border dressing to blister. 2 border foam noted on R Buttocks nurse 3. Pain Scale: 0-10 Numeric Is Patient Pain Free? Yes - Visit Discharge Discharge Condition Stable Ambulatory Status Wheelchair Transportation Private Auto Facility Type Jail Care Facility Orders Sent Yes Additional Wound Wound debrided: Left hallux Shearing Laterality: Left Wound Grade/Stage: Stage II Type of Debridement: Excisional debridement Anesthesia Used: 5% Lidocaine Gel Depth: Down to and including healthy tissue Percentage of wound debrided: 100 Instrument Used: 5mm curette Severity: Limited To Skin Breakdown Amount of bleeding with debridement: Moderate Bleeding Controlled with: Gel Foam Patient tolerated procedure: Patient tolerated procedure well Assessment/Plan Assessment/Plan (1) Decubitus ulcer of sacral region, stage 2: CODE(S): L89.152 - Pressure ulcer of sacral region, stage 2 PLAN: Wound resolved and patient is to just sure prep pad and protect (2) Decubitus ulcer of toe, stage 2: CODE(S): L89.892 - Pressure ulcer of other site, stage 2 QUALIFIERS: Laterality: left Qualified Code(s): L89.892 - Pressure ulcer of other site, stage 2 PLAN: Wash area with Dial soap and pat dry with water and apply Fibracol to wound base cover with a Adaptic and a foam dressing every day (3) Chronic anemia: CODE(S): D64.9 - Anemia, unspecified PLAN: Continue ferrous sulfate 325 mg to twice a day with stool softeners B12 injections 1000 mcg q. weekly Improved immensely she said at normal rate at this time (4) Decubitus ulcer of right buttock, stage 4: CODE(S): L89.314 - Pressure ulcer of right buttock, stage 4 PLAN: Wash with antibacterial soap and water and apply sure prep and Promogran to the area and cover with absorbent dressing Hold on EpiFix for another week (5) Skin ulcer of left great toe: CODE(S): L97.529 - Non-pressure chronic ulcer of other part of left foot with unspecified severity QUALIFIERS: Non-pressure ulcer stage: limited to breakdown of skin Qualified Code(s): L97.521 - Non-pressure chronic ulcer of other part of left foot limited to breakdown of skin (6) Decubitus ulcer of left ischium, stage 2: CODE(S): L89.322 - Pressure ulcer of left buttock, stage 2 PLAN: Resolved and monitor may use Skin-Prep as needed (7) Ulcer of anus: CODE(S): K62.6 - Ulcer of anus and rectum PLAN: Resolved and monitor use Skin-Prep as needed 09/07/24 4527 <Electronically signed by Evelyn Robertson NP DATA SECURITY CONSULTANT-C> Cosigner Signature (if applicable): CC: ~ Signed [facility] Work Phone: 1(386) 624-256103-04-2025 Evaluation note* Diagnosis Onset Date Resolution Status Admit Date Iron deficiency anemia due t o chronic blood loss chronic July 05 1:32pm 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 acute July 27, 2024 8:30am Decubitus ulcer of left buttock, stage 2 acute July 27 8:30am Decubitus ulcer of left ischium, stage 2 acute July 27 8:30am Decubitus ulcer of right buttock, stage 4 acute July 27 8:30am Decubitus ulcer of sacral region, stage 2 acute July 27, 2024 8:30am Decubitus ulcer of toe, stage 2 acut e July 27, 2024 8:30am Malnutrition acute July 27, 2024 8:30am Pressure ulcer of ischium, stage 2 acute July 27, 2024 8:30am Pressure ulcer of ischium, stage 3 acute July 27, 2024 8:30am Skin ulcer of left great toe acute July 27, 2024 8:30am Transverse myelitis acute July 27, 2024 8:30am Ulcer of anus acute July 27, 2024 8:30am Wound infection acute July 8:30am Chronic anemia chronic July 8:30am Paraplegia chronic July 27 8:30am Decubitus ulcer of left ischium, stage 2 acute August 31 10:15am Decubitus ulcer of right buttock, stage 4 acute August 31 10:15am Decubitus ulcer of sacral region, stage 2 acute August 31, 2024 10:15am Decubitus ulcer of toe, stage 2 acut e August 31, 2024 10:15am Skin ulcer of left great toe acute August 31, 2024 10:15am Ulcer of anus acute August 31, 2024 10:15am Chronic anemia chronic August 10:15am Decubitus ulcer of left ischium, stage 2 acute September 28, 2024 10:30am Decubitus ulcer of right buttock, stage 4 acute September 28, 2024 10:30am Decubitus ulcer of sacral region, stage 2 acute September 28, 2024 1 0:30am Decubitus ulcer of toe, stage 2 acut e September 28, 2024 10:30am Skin ulcer of left great toe acute September 28, 2024 10:30am Ulcer of anus acute September 28, 2 025 10:30am Chronic anemia chronic September 28, 2024 10:30am 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 September 28, 2024 1 0:30am Decubitus ulcer of left ischium, stage 2 acute October 12, 2024 10:30am Decubitus ulcer of right buttock, stage 4 acute October 12, 2024 10:30am Decubitus ulcer of sacral region, stage 2 acute October 12, 2024 10:30am Decubitus ulcer of toe, stage 2 acut e October 12, 2024 10:30am Skin ulcer of left great toe acute October 12, 2024 10:30am Ulcer of anus acute October 12, 2024 10:30am Chronic anemia chronic October 12, 2024 10:30am 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 October 12, 2024 10:30am [facility] Work Phone: 1(792) 954-815402-26-2025 Evaluation note* Diagnosis Onset Date Resolution Status Admit Date Decubitus ulcer of left buttock, stage 2 acute June 29, 2024 8:30am Decubitus ulcer of right buttock, stage 4 acute June 29, 2024 8:30am Decubitus ulcer of sacral region, stage 2 acute June 29, 025 8:30am Decubitus ulcer of toe, stag e 2 acute June 29 025 8:30am Malnutrition acute June 8:30am Wound infection acute June 29, 2024 8:30am Chronic anemia chronic June 052024 8:30am Iron deficiency anemia due t o chronic blood loss chronic July 05 1:32pm BiPAP (biphasic positive airway pressure) dependence acute Mauricio 2024 8:30am Decubitus ulcer of left buttock, stage 2 acute July 27 8:30am Decubitus ulcer of left ischium, stage 2 acute July 27 8:30am Decubitus ulcer of right buttock, stage 4 acute July 27 8:30am Decubitus ulcer of sacral region, stage 2 acute July 27, 2024 8:30am Decubitus ulcer of toe, stag e 2 acute July 27, 2024 8:30am Malnutrition acute July 27, 2024 8:30am Pressure ulcer of ischium, stage 2 acute July 27, 2024 8:30am Pressure ulcer of ischium, stage 3 acute July 27, 2024 8:30am Skin ulcer of left great toe acute July 27, 2024 8:30am Transverse myelitis acute July 27, 2024 8:30am Ulcer of anus acute July 27, 2024 8:30am Wound infection acute July 8:30am Chronic anemia chronic July 8:30am Paraplegia chronic July 27 8:30am Decubitus ulcer of left ischium, stage 2 acute August 31 10:15am Decubitus ulcer of right buttock, stage 4 acute August 31 10:15am Decubitus ulcer of sacral region, stage 2 acute August 31, 2024 10:15am Decubitus ulcer of toe, stag e 2 acute August 31, 2024 10:15am Skin ulcer of left great toe acute August 31, 2024 10:15am Ulcer of anus acute August 31, 2024 10:15am Chronic anemia chronic August 10:15am Decubitus ulcer of left ischium, stage 2 acute September 28, 2024 10:30am Decubitus ulcer of right buttock, stage 4 acute September 28, 2024 10:30am Decubitus ulcer of sacral region, stage 2 acute September 28, 2024 1 0:30am Decubitus ulcer of toe, stag e 2 acute September 28, 2024 1 0:30am Skin ulcer of left great toe acute September 28, 2024 10:30am Ulcer of anus acute September 28, 2 025 10:30am Chronic anemia chronic September 28, 2024 10:30am 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 Juliane Landa RN [facility] Work Phone: [phone]) 544-453701-06-2025 Miscellaneous Notes* Telephone Encounter - Juliane Landa RN - 05/09/2024 3:50 PM EST Verbal order relayed to patient's nurse at [facility]. Juliane Landa RN * Telephone Encounter - Jim Torres MD - 05/09/2024 3:37 PM EST Ok to honor end date and remove picc. Thanks. Jim Torres MD * Telephone Encounter - Juliane Landa RN - 05/09/2024 3:22 PM EST Copat stop date 05/10/24. Can stop date be honored and PICC be removed after last dose of cefazolin? Juliane [facility]anda RN [facility] Telephone encounter Note * Telephone Encounter - Jim Torres MD - 05/09/2024 3:37 PM EST Ok to honor end date and remove picc. Thanks. Jim Torres MD [facility] Work Phone: 1(467) 381-163501-06-2025 Telephone encounter Note* Telephone Encounter - Juliane Landa RN - 05/09/2024 3:22 PM EST Copat stop date 05/10/24. Can stop date be honored and PICC be removed after last dose of cefazolin? Juliane Landa RN [facility]01-02-2025 History of Present illness Narrative* Christopher Wells RPh - 05/05/2024 2:51 PM ESTSummary: OPAT Management [facility] OPAT Documentation Note OPAT Pharmacist Lab Review Weekly OPAT labs reviewed. The patient is currently receiving the following IV antimicrobials as part of their OPAT therapy: cefazolin 2g IV every 8 hours. Tentative OPAT stop date is 05/10/2024. No pharmacist recommendations at this time. Lab Abnormalities Noted: eosinophilia (15%); called SNF, spoke to nurse, the patient is not experiencing any erythema, itching, or rash; risk of DRESS low. No changes made at this time. Total Time Spent on this Encounter (in minutes): 5-10 Christopher Wells RPh 05/05/2024 2:51 PM [facility]-2025 NoteHNO ID: [id number] Author: CHRISTOPHER WELLS RPh Service: ? Author Type: Pharmacist Type: Progress Notes Filed: 05/05/2024 14:53 Note Text: Summary: OPAT Management [facility] OPAT Documentation Note OPAT Pharmacist Lab Review Weekly OPAT labs reviewed. The patient is currently receiving the following IV antimicrobials as part of their OPAT therapy: cefazolin 2g IV every 8 hours. Tentative OPAT stop date is 05/10/2024. No pharmacist recommendations at this time. Lab Abnormalities Noted: eosinophilia (15%); called SNF, spoke to nurse, the patient is not experiencing any erythema, itching, or rash; risk of DRESS low. No changes made at this time. Total Time Spent on this Encounter (in minutes): 5-10 Christopher Wells [facility] 05/05/2024 2:51 [facility]01-02-2025 Telephone encounter Note* Telephone Encounter - Juliane Landa RN - 05/05/2024 2:32 PM EST External copat lab results entered. Juliane Landa RN [facility] Work Phone: 1(336) 148-232901-02-2025 Miscellaneous Notes* Telephone Encounter - Juliane Landa RN - 05/05/2024 2:32 PM EST External copat lab results entered. Juliane Landa RN [facility]12-[facility]-2024 NoteHNO ID: [id number] Author: BONITA LAMBERT RN Service: Care Management Author Type: Registered Nurse Type: Care Mgt Progress Note Filed: 04/22/2024 16:15 Note Text: CARE MANAGEMENT DISCHARGE NOTE SERVICE DATE: April 22, 2024 SERVICE TIME: 4:15 PM Admission Date: 04/13/2024 LOS: 8 days Discharge Arrangement Discharge Arrangement: Senior Living Facility Was an expedited discharge program used?: No Provider Name: [place] [employer] Caregiver Assessment Caregiver is ready, willing and able to meet the patient's needs as recommended by the inter-professional team: Yes Name of Caregiver: [facility] Transportation Arrangements Transportation Arrangements: Car Handoff Communication: Handoff to: Primary Care Physician;Other Caregiver Primary Care Physician Name/Phone: summary of care to PCP, Cara Arce Other Caregiver Name/Phone: [facility] is aware of DC, RN to call report Additional Information: Patient is discharging to [facility]. Her daughter Bela to transport via private w/c van. Met with patient in room. She is aware of plan for DC and is in agreement. SIGNATURE: Bonita Lambert RN PATIENT NAME: Aleena Andrea DATE: April 22, 2024 TIME: 4:13 [facility]12-20-2024 NoteHNO ID: [id number] Author: FANI ALMODOVAR griselda Service: Pharmacy Author Type: Pharmacist Type: Plan of Care Filed: 04/22/2024 12:58 Note Text: DISCHARGE MEDICATION REVIEW BY PHARMACY Patient Name: Aleena Andrea Account #: Data Unavailable Admission Date: 04/13/2024 Date of Contact: April 22, 2024 Time of Contact: 12:57 PM Medication list was reviewed by a Pharmacist for drug interactions or drug related problems:Yes Below is a summary of pharmacist recommendations discussed with LIP: The following medications were discussed with LIP for further review: cefazolin, oxycodone, naloxone I have discussed the recommendations and the medication orders have been addressed by LIP. Fani Almodovar PharmD, [facility] Pager: [phone] 04/22/2024 12:57 PM Medication List START taking these medications ceFAZolin 2 gram/100 mL in dextrose (iso-osmotic) Commonly known as: ANCEF Inject 100 mL intravenously every 8 hours for 18 days. naloxone 4 mg/actuation nasal spray Use 1 spray in one nostril as needed for overdose. May repeat every 2 to 3 min in alternating nostrils until medical assistance is available senna-docusate 8.6-50 mg per tablet Commonly known as: SENNA-S Take 1 tablet by mouth two times a day as needed for constipation. CHANGE how you take these medications oxyCODONE 15 mg immediate release tablet Commonly known as: ROXICODONE Take 1 tablet by mouth every 4 hours as needed for up to 2 days. What changed: medication strength when to take this reasons to take this CONTINUE taking these medications cloNIDine HCl 0.2 mg tablet Commonly known as: CATAPRES docusate sodium 100 mg capsule Commonly known as: COLACE DULoxetine 30 mg capsule Commonly known as: CYMBALTA FIBER GUMMIES ORAL gabapentin 800 mg tablet Commonly known as: NEURONTIN MIRALAX ORAL NaCl (PF) 0.9% soln NAPROXEN ORAL PROLIA SUBCUTANEOUS traZODone 100 mg tablet Commonly known as: DESYREL TylenoL 325 mg tablet Generic drug: acetaminophen WHEELCHAIR Generic drug: Wheel Chair STANDING WHEELCHAIR Where to Get Your Medications You can get these medications from any pharmacy Bring a paper prescription for each of these medications oxyCODONE 15 mg immediate release tabletMain[facility]eral [facility]12-19-2024 NoteHNO ID: [id number] Author: FRANCISCA SWANSON MD Service: Pain Management Author Type: Physician Type: Progress Notes Filed: 04/21/2024 12:25 Note Text: Name: ALEENA ANDREA Age: [age] year old PAIN MANAGEMENT: Subcutaneous ischial/rectal abscess, history of paraplegia from transverse myelitis, chronic pain syndrome, intrathecal pump Pain Description: Patient had another bad night; required fentanyl dose. Feels better this morning Interval HPI: No acute events overnight. Plan to have IT pump refilled and then discharged to SNF 04/19 right ischial pressure wound 11 x 7 cm debrided to muscle 04/16 IR aspiration fluid from pelvic collection. Only 2 cc removed, no large abscess noted 04/14 debridement right ischial pressure ulcer 24H Comfort Meds: Voltaren gel x 3 Fentanyl 50 mcg IV x 2 Gabapentin 800 mg x 3 Oxycodone 15 mg x 4 Melatonin 3 mg x 1 MiraLAX x 0 Trazodone 100 mg x 1 Senna S1 tab x 2 Intrathecal pump Dilaudid and baclofen, bupivacaine Subjective HPI: 73-year-old female with history of transverse myelitis with subsequent paralysis (July 2000) s/p intrathecal pain pump, chronic wounds, neurogenic bladder s/p lap augmentation cystoplasty with ileoileal catheterizable stoma at umbilicus, CAD, CHF, osteoporosis, depression presented 04/13 from [facility] ED for increased right hip pain and progressive wounds. CTAP from [facility] showed right sided 8.5x8.3cm subcutaneous abscess extending into the right ischial rectal fossa along with extensive soft tissue edema/cellulitis. This finding is new since last CT scan 09/2022. Patient seen by surgery with plan for debridement. Labs included WBC 11.6 hemoglobin 9. In the ER, patient had mild hypotension 70s/50s which improved with IV fluids. Of note, patient states she took clonidine 0.2 mg last night (part of her pain regimen?) I was involved in patient's care during her admission in Sep, 2022 for SBO. Home pain regimen managed by [facility] includes intrathecal pump (Dilaudid, baclofen) oxycodone 15 mg up to 4 tabs daily, gabapentin 800 mg 4 times daily, Naprosyn 375 mg twice daily, clonidine 0.2 mg at bedtime, trazodone 100 mg at bedtime. Patient states she gets IT pump filled weekly and is due to be filled next week. She lives alone in her apartment with minimal assistance. Her daughter does provide support. OARRS Review: 71 prescriptions from 8 prescribers. Opiate dependent. Most recent prescriptions: 03/15, 04/12 Dilaudid powder 04/11 oxycodone 5 mg #33 04/10 oxycodone 5 mg #3 04/07 oxycodone 5 mg #24 04/06 gabapentin 800 mg #120 03/23 oxycodone 15 mg #120 Current Facility-Administered Medications Medication Dose Route Frequency Provider Last Rate Last Admin ceFAZolin iv piggyback 2 g in D5W (iso-osmotic) 100 mL (ANCEF) 2 g INTRAVENOUS q 8 HR Jim Torres MD Stopped at 04/21/24910 enoxaparin 30 mg injection (LOVENOX) 30 mg SUBCUTANEOUS q 24 HR Moni Worley MD 30 mg at 04/21/24 120 cloNIDine HCl 0.1 mg tab(s) (CATAPRES) 0.1 mg ORAL AT BEDTIME Moni Worley MD 0.1 mg at 04/20/242036 mupirocin 2 % ointment (BACTROBAN) TOPICAL TID Moni Worley MD Given at 04/21/24 120 melatonin 3 mg tab(s) 3 mg ORAL DAILY (8 PM) Moni Worley MD 3 mg at 04/19/242051 diclofenac 1 % 4 g topical gel (VOLTAREN) 4 g TOPICAL QID Moni Worley MD 4 g at 04/21/24 1204 ondansetron (PF) 4 mg injection (ZOFRAN) 4 mg INTRAVENOUS q 6 H PRN Moni Worley MD 4 mg at 04/18/24 2240 bisacodyl 10 mg suppository (DULCOLAX) 10 mg RECTAL DAILY PRN Moni Worley MD prochlorperazine 5 mg injection (COMPAZINE) 5 mg INTRAVENOUS q 6 H PRN Moni Worley MD 5 mg at 04/15/24 183 gabapentin 800 mg cap(s) (NEURONTIN) 800 mg ORAL q 6 H Moni Worley MD 800 mg at 04/21/24 1203 oxyCODONE IR 15 mg tab(s) (ROXICODONE) 15 mg ORAL q 4 H PRN Moni Worley MD 15 mg at 04/21/24 1206 senna-docusate 8.6-50 mg 1 tablet (SENNA-S) 1 tablet ORAL BID Moni Worley MD 1 tablet at 04/21/24 0841 polyethylene glycol 3350 17 g packet 17 g ORAL DAILY PRN Moni Worley MD 17 g at 04/15/24 0854 HYDROmorphone (PWD) 1 mg patient's own pump - [facility] placeholder INTRATHECAL CONTINUOUS Moni Worley MD traZODone 100 mg tab(s) (DESYREL) 100 mg ORAL AT BEDTIME Moni Worley MD 100 mg at 04/20/242036 NaCl 0.9% iv flush bag 20 mL INTRAVENOUS PRN Moni Worley MD DULoxetine (CYMBALTA) 30 mg capsule, Take 90 mg by mouth once daily. 30 mg daily in the morning 60 mg daily in the evening, Disp: , Rfl: , 04/14/2024 gabapentin (NEURONTIN) 800 mg tablet, Take 800 mg by mouth four times daily., Disp: , Rfl: , 04/14/2024 cloNIDine HCl (CATAPRES) 0.2 mg tablet, Take 0.2 mg by mouth daily at bedtime., Disp: , Rfl: , 04/13/2024 docusate sodium (COLACE) 100 mg capsule, Take 100 mg by mouth twice daily as needed for constipation., Disp: , Rfl: POLYETHYLENE GL (more content not included)...[facility] 04-21-2024 NoteHNO ID: [id number] Author: GUSTABO SALDIVAR MD Service: Hospital Medicine Author Type: Resident Type: Progress Notes Filed: 04/21/2024 13:37 Note Text: Attestation signed by Gustabo Saldivar MD at 04/21/2024 1:37 PM Attending Note I personally saw and examined the patient. I reviewed the resident's note. I agree with the resident's assessment and plan unless otherwise noted. Doing better with pain control Intrathecal pump will be changed tomorrow followed by MI to [place]. Signature: Gustabo Saldivar MD Date: 04/21/2024 Time: 1:36 PM [facility] [place] PATIENT NAME: Aleena Andrea ADMITTED FOR: LOS: 7 days Subjective HPI Ms. 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 CTAP from [facility] showed right sided 8.5x8.3cm subcutaneous abscess extending into the right ischial rectal fossa along with extensive soft tissue edema/cellulitis. This finding is new since last CT scan 09/2022. General surgery saw patient and will plan for possible debridement. But with multiple comorbidities will admit to medicine floor. Denies fevers, chills, abdominal pain, N, or vomiting. On arrival to ED, BP 100/53, HR 79, afebrile, SpO2 96% on RA. CBC with leukocytosis of 11.57, chronic stable anemia at 9.0, plt count elevated at 617 (likely reactive). CMP with Cr stable. Developed soft pressure of 70/50s. Given fluids. Nurse does suspect patient took medication from home possibly while in the ED. Sepsis lactate 0.6. UA unremarkable. INTERVAL EVENTS No acute events overnight. Patient encountered this morning resting comfortably in bed. She reports having a rough night and not sleeping well due to pain from the debridement site. She denies any fever, chills, nausea, vomiting, chest pain, shortness of breath, abdominal pain, urinary changes, or new onset symptoms. We discussed monitoring thr patient today along with pain managements recommendations with plans to refill her pain pump tomorrow prior to discharging to [facility] to which she expressed agreement. Pertinent results today: Afebrile, HR normal, MAP 79, SpO2 99 on RA Regional Branch Manager Updates Gen Surg -No plans for further surgical intervention. Surgery will sign-off at this time. Please call with questions or concerns ID - Will transition to cefazolin - CoPat Ordered Pain management -When discharged to SNF, she will need 1 day opiate prescription. I tried to print prescription this morning but printer needs new ink- aware. will defer to primary team to print one day Rx Objective OBJECTIVE BP 125/63 Pulse 79 Temp 36.7 ?C (98 ?F) (Oral) Resp 20 Ht 154.9 cm (5' 1) Wt 54.1 kg (119 lb 4.3 oz) LMP 08/16/2002 SpO2 98% BMI 22.54 kg/m? Temp (24hrs), Av.6 ?C (97.8 ?F), Min:36.3 ?C (97.4 ?F), Max:36.8 ?C (98.3 ?F) Body mass index is 22.54 kg/m?., Hemoglobin A1C (%) Date Value 04/14/2024 4.5 Intake/Output Summary (Last 24 hours) at 04/21/2024 1325 Last data filed at 04/21/2024 0903 Gross per 24 hour Intake 200 ml Output 4400 ml Net -4200 ml Physical Exam Constitutional: General: She is not in acute distress. Appearance: Normal appearance. She is normal weight. HENT: Head: Normocephalic and atraumatic. Mouth/Throat: Mouth: Mucous membranes are moist. Eyes: Pupils: Pupils are equal, round, and reactive to light. Cardiovascular: Rate and Rhythm: Normal rate and regular rhythm. Heart sounds: No murmur heard. No gallop. Pulmonary: Effort: Pulmonary effort is normal. No respiratory distress. Breath sounds: Normal breath sounds. No wheezing. Abdominal: General: Abdomen is flat. Palpations: There is no mass. Tenderness: There is no abdominal tenderness. There is no guarding or rebound. Musculoskeletal: Cervical back: Normal range of motion. Right lower leg: No edema. Left lower leg: No edema. Comments: Paraplegia in bilateral lower extremity. No obvious wounds or deformities noted. Inspected left ischial wound. No obvious purulance or hemorrhage. Healing well with granulation tissue. Skin: General: Skin is warm and dry. Capillary Refill: Capillary refill takes less than 2 seconds. Neurological: General: No focal deficit present. Mental Status: She is a (more content not included)...[facility]12-18-2024 NoteHNO ID: [id number] Author: BONITA LAMBERT RN Service: Care Management Author Type: Registered Nurse Type: Care Mgt Progress Note Filed: 04/20/2024 16:19 Note Text: CARE MANAGEMENT PROGRESS NOTE SERVICE DATE: 04/20/2024 SERVICE TIME: 3:09 PM LOS: 6 days Needs Prior to Discharge: Discharge Transportation IMM Follow Up Copy Given: Yes Copy given to:: Patient Method: In Person Chart reviewed. Patient had PICC placed today. CoPAT written for IV abx through 05/10. DC plan is to return to [facility] SNF. Anticipate DC to SNF tomorrow. Patient is aware and states her daughter will be able to transport her tomorrow evening. SIGNATURE: Bonita Lambert RN PATIENT NAME: Aleena Andrea DATE: April 20, 2024 TIME: 4:17 [facility]12-18-2024 NoteHNO ID: [id number] Author: FRANCISCA SWANSON MD Service: Pain Management Author Type: Physician Type: Progress Notes Filed: 04/20/2024 09:54 Note Text: Name: ALEENA ANDREA Age: [age] year old PAIN MANAGEMENT: Subcutaneous ischial/rectal abscess, history of paraplegia from transverse myelitis, chronic pain syndrome, intrathecal pump Pain Description: Patient seen earlier. Had a bad evening due to pain with poor sleep. Did get relief with dose of fentanyl IV. Increased pain at wound after debridement yesterday Interval HPI: No acute events overnight 04/19 right ischial pressure wound 11 x 7 cm debrided to muscle 04/16 IR aspiration fluid from pelvic collection. Only 2 cc removed, no large abscess noted 04/14 debridement right ischial pressure ulcer 24H Comfort Meds: Voltaren gel x 3 Fentanyl 50 mcg IV x 2 Gabapentin 800 mg x 3 Oxycodone 15 mg x 4 Melatonin 3 mg x 1 MiraLAX x 0 Trazodone 100 mg x 1 Senna S1 tab x 2 Intrathecal pump Dilaudid and baclofen, bupivacaine Subjective HPI: 73-year-old female with history of transverse myelitis with subsequent paralysis (July 2000) s/p intrathecal pain pump, chronic wounds, neurogenic bladder s/p lap augmentation cystoplasty with ileoileal catheterizable stoma at umbilicus, CAD, CHF, osteoporosis, depression presented 04/13 from [facility] ED for increased right hip pain and progressive wounds. CTAP from [facility] showed right sided 8.5x8.3cm subcutaneous abscess extending into the right ischial rectal fossa along with extensive soft tissue edema/cellulitis. This finding is new since last CT scan 09/2022. Patient seen by surgery with plan for debridement. Labs included WBC 11.6 hemoglobin 9. In the ER, patient had mild hypotension 70s/50s which improved with IV fluids. Of note, patient states she took clonidine 0.2 mg last night (part of her pain regimen?) I was involved in patient's care during her admission in Sep, 2022 for SBO. Home pain regimen managed by Que PM includes intrathecal pump (Dilaudid, baclofen) oxycodone 15 mg up to 4 tabs daily, gabapentin 800 mg 4 times daily, Naprosyn 375 mg twice daily, clonidine 0.2 mg at bedtime, trazodone 100 mg at bedtime. Patient states she gets IT pump filled weekly and is due to be filled next week. She lives alone in her apartment with minimal assistance. Her daughter does provide support. OARRS Review: 71 prescriptions from 8 prescribers. Opiate dependent. Most recent prescriptions: 03/15, 04/12 Dilaudid powder 04/11 oxycodone 5 mg #33 04/10 oxycodone 5 mg #3 04/07 oxycodone 5 mg #24 04/06 gabapentin 800 mg #120 03/23 oxycodone 15 mg #120 Current Facility-Administered Medications Medication Dose Route Frequency Provider Last Rate Last Admin ceFAZolin iv piggyback 2 g in D5W (iso-osmotic) 100 mL (ANCEF) 2 g INTRAVENOUS q 8 HR Jim Torres MD lidocaine 10 mg/mL (1 %) 10-100 mg injection (XYLOCAINE) 1-10 mL INTRADERMAL DIRECTED PRN Moni Worley MD enoxaparin 30 mg injection (LOVENOX) 30 mg SUBCUTANEOUS q 24 HR Moni Worley MD 30 mg at 04/18/24 124 cloNIDine HCl 0.1 mg tab(s) (CATAPRES) 0.1 mg ORAL AT BEDTIME Moni Worley MD 0.1 mg at 04/19/242051 mupirocin 2 % ointment (BACTROBAN) TOPICAL TID Moni Worley MD Given at 04/19/242103 melatonin 3 mg tab(s) 3 mg ORAL DAILY (8 PM) Moni Worley MD 3 mg at 04/19/242051 diclofenac 1 % 4 g topical gel (VOLTAREN) 4 g TOPICAL QID Moni Worley MD 4 g at 04/19/24 1400 ondansetron (PF) 4 mg injection (ZOFRAN) 4 mg INTRAVENOUS q 6 H PRN Moni Worley MD 4 mg at 04/18/24 2240 bisacodyl 10 mg suppository (DULCOLAX) 10 mg RECTAL DAILY PRN Moni Worley MD prochlorperazine 5 mg injection (COMPAZINE) 5 mg INTRAVENOUS q 6 H PRN Moni Worley MD 5 mg at 04/15/24 183 gabapentin 800 mg cap(s) (NEURONTIN) 800 mg ORAL q 6 H Moni Worley MD 800 mg at 04/20/24 0529 oxyCODONE IR 15 mg tab(s) (ROXICODONE) 15 mg ORAL q 4 H PRN Moni Worley MD 15 mg at 04/20/24 0348 fentaNYL 50 mcg/mL 50 mcg injection (SUBLIMAZE) 50 mcg INTRAVENOUS q 2 H PRN Francisca Swanson MD 50 mcg at 04/19/242052 senna-docusate 8.6-50 mg 1 tablet (SENNA-S) 1 tablet ORAL BID Moni Worley MD 1 tablet at 04/19/242051 polyethylene glycol 3350 17 g packet 17 g ORAL DAILY PRN Moni Worley MD 17 g at 04/15/24 0854 HYDROmorphone (PWD) 1 mg patient's own pump - [facility] placeholder INTRATHECAL CONTINUOUS Moni Worley MD traZODone 100 mg tab(s) (DESYREL) 100 mg ORAL AT BEDTIME Moni Worley MD 100 mg at 04/19/242052 NaCl 0.9% iv flush bag 20 mL INTRAVENOUS PRN Moni Worley MD oxycodone HCl (OXYCODONE ORAL), Take 15 mg by mouth four times daily., Disp: , Rfl: , 04/14/2024 DULoxetine (CYMBALTA) 30 mg capsule, Take 90 mg by mouth once daily. 30 mg daily in the morning 60 mg daily in the evening, Disp: , Rfl: , 04/14/2024 gabape (more content not included)...[facility]12-18-2024 Note HNO ID: [id number] Author: YUKO PUTNAM RN Service: PICC Team Author Type: Registered Nurse Type: Procedures Filed: 04/20/2024 09:56 Note Text: PICC NURSE INSERTION NOTE DATE OF PROCEDURE: April 20, 2024 TIME OF PROCEDURE: 0930 ORDERING PHYSICIAN: maurizio INFORMED CONSENT: Obtained per hospital policy. 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 Final Comment: Estimated Glomerular Filtration [...] GFR. History of Renal Disease: No Ultrasound Assessment Complete: Yes PROCEDURE NARRATIVE SAFE PRACTICE Hand Hygiene per Hospital Policy: Yes Skin Preparation Unit Dose Applicator Used: Chloraprep (CHG + alcohol), allowed to dry. Procedure Surface Cleansed with Antimicrobial Wipes: Yes Barriers Used by Proceduralist and all Assisting Personnel: Yes UNIVERSAL PROTOCOL / SAFETY CHECKLIST Procedure to be Performed: Peripherally Inserted Central Catheter Sign In: A Moment of CARE was completed. Personnel directly involved with the procedure wore the appropriate PPE (Personal Protective Equipment). Special equipment: US,TLS Patient/Surrogate Stated/Verified: PATIENT VERIFIED(optional for EMERGENT procedures): Patient name, Date of , Relevant allergies, and The intended procedure Time Out Communication: Intended patient and procedure match the source documents. Consent documented and matches the intended procedure. Relevant labs, photos, and/or imaging studies have been reviewed. Correct side/site marked and visible. Medications required for procedure verified. No implant(s) inserted. Sign Out: SIGN OUT (optional for EMERGENT procedures): No specimen collected. All instruments, equipment, possible retained foreign bodies accounted for. Post-procedure follow-up management communicated and Plan of Care Visit completed when applicable. Yuko Hauser RN CATHETER PLACEMENT Brand: BARD Lot: [id number] Number of Lumens: 1 Type of PICC: Power Injectable PICC Lumen Size: 4 Pashto PLACEMENT TECHNIQUE Lidocaine: Yes, Lidocaine 1% Volume 1 mL Subcutaneous Modified Seldinger Technique Used to Place Line via the Right Brachial Ultrasound Guidance: Yes Number of Attempts at Insertion: 1 Ensured control of guidewire during all aspects of the procedure: Yes Accounted for entire guidewire upon removal: Yes Internal Length: 38cm External Length: 0 cm Trim Length: 38 cm Mid-Arm Circumference: 20 centimeters Post Insertion Pain Level Related to Procedure: 0 Action Taken to Address Pain: None needed Verified Placement: Blood return and flushes with ease and Tip location system or device indicates the tip is located in the SVC/CAJ. Line was Flushed with 20 mL normal saline Line Secured with: Securement device Sterile Dressing Applied and Dated: Yes Sterile Caps on all Ports Prior to Leaving Procedure Area: Yes, Disinfection caps applied SPECIMENS: None COMPLICATIONS: None Patient Education Materials: Given to patient QUESTIONS or PROBLEMS: Call [phone] SIGNATURE: Yuko Hauser RN PATIENT NAME: Aleena Andrea DATE: April 20, 2024 TIME: 9:44 AM PAGER/CONTACT PHONE:[facility]12-18-2024 NoteHNO ID: [id number] Author: JIM TORRES MD Service: ? 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 Flush IV line with 10-20 mL of normal saline (0.9%) after lab draw. Labs may be drawn on Thursday if Thursday is a holiday. Follow up Provider Follow up date/time Appointment type Jim Torres MD In-person Provider Monitoring Treatment Course Jim Torres MD Address [address] [place], [place] [id number] Prescribing Provider's signature - electronically signed by Jim Torres MD on 04/20/24 at 8:36 [facility] History of Present illness Narrative* Jim Torres MD - 04/20/2024 8:35 AM EST [facility] Parenteral Antimicrobial Therapy (OPAT) Start Form Patient Info Patient MRN Patient Name Address Date of [id number] Aleena Andrea [address] [facility] [address] [facility] [id number] 1950 Start Date 04/20/2024 Physician Group [facility] Diagnosis Skin and Soft Tissue Infection: 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 Flush IV line with 10-20 mL of normal saline (0.9%) after lab draw. Labs may be drawn on Thursday if Thursday is a hol. Follow up Provider Follow up date/time Appointment type Jim Torres MD In-person Provider Monitoring Treatment Course Jim Torres MD Address [address] [place] [id number] Prescribing Provider's signature - electronically signed by Jim Torres MD on 04/20/24 at 8:36 AM documented in [facility]12-[facility] NoteO ID: [id number] Author: GUSTABO SALDIVAR MD Service: Hospital Medicine Author Type: Resident Type: Progress Notes Filed: 04/20/2024 19:44 Note Text: Attestation signed by Gustabo Saldivar MD at 04/20/2024 7:44 PM Attending Note I personally saw and examined the patient. I reviewed the resident's note. I agree with the resident's assessment and plan unless otherwise noted. Signature: Gustabo Saldivar MD Date: 04/20/2024 Time: 7:44 PM [facility] [place] PATIENT NAME: Aleena Andrea ADMITTED FOR: LOS: 6 days Subjective HPI Ms. 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 CTAP from [facility] showed right sided 8.5x8.3cm subcutaneous abscess extending into the right ischial rectal fossa along with extensive soft tissue edema/cellulitis. This finding is new since last CT scan 09/2022. General surgery saw patient and will plan for possible debridement. But with multiple comorbidities will admit to medicine floor. Denies fevers, chills, abdominal pain, N, or vomiting. On arrival to ED, BP 100/53, HR 79, afebrile, SpO2 96% on RA. CBC with leukocytosis of 11.57, chronic stable anemia at 9.0, plt count elevated at 617 (likely reactive). CMP with Cr stable. Developed soft pressure of 70/50s. Given fluids. Nurse does suspect patient took medication from home possibly while in the ED. Sepsis lactate 0.6. UA unremarkable. INTERVAL EVENTS No acute events overnight. Patient encountered this morning resting comfortably in bed. She reports not sleeping well due to pain from the surgical intervention yesterday. She denies any bleeding or infectious symptoms including fever, chills, nausea, vomiting, or new onset symptoms. We discussed how the patient is medically optimized and will plan to start the discharge process back to the patient's SNF. Will continue antibiotics outpatient via PICC line and continue wound care at facility. Pertinent results today: Afebrile, HR normal, MAP 65, SpO2 94 on RA Hemoglobin 8.3 -> 8 Rare s aueus -Pansensitive Regional Branch Manager Updates Gen Surg - S/P OR for debridement on 04/14 - S/P OR debridement 04/19 - Continue wound care / Dressing changes BID - on Zosyn and Vancomycin - ID following - Rest of care management per Primary ID - Will transition to cefazolin - CoPat Ordered Pain management Patient known to me from prior admissions with history of paraplegia from transverse myelitis 2000 admitted with worsening extensive right ischial pressure injury S/p repeat debridement right ischial pressure 11 x 7 cm wound 04/19 Some increased postop pain noted Opiate dependent before admission; intrathecal Dilaudid, bupivacaine and baclofen pump Voltaren gel 4 times daily Gabapentin 800 mg every 6 hours Allow Fentanyl 50 mcg IV every 2 hours as needed for breakthrough pain x 24 hours Objective OBJECTIVE BP 122/66 Pulse 66 Temp 36.3 ?C (97.3 ?F) (Oral) Resp 18 Ht 154.9 cm (5' 1) Wt 54.1 kg (119 lb 4.3 oz) LMP 08/16/2002 SpO2 98% BMI 22.54 kg/m? Temp (24hrs), Av.6 ?C (97.8 ?F), Min:36.3 ?C (97.3 ?F), Max:37 ?C (98.6 ?F) Body mass index is 22.54 kg/m?., Hemoglobin A1C (%) Date Value 04/14/2024 4.5 Intake/Output Summary (Last 24 hours) at 04/20/2024 1537 Last data filed at 04/20/2024 1333 Gross per 24 hour Intake 990 ml Output 4450 ml Net -3460 ml Physical Exam Constitutional: General: She is not in acute distress. Appearance: Normal appearance. She is normal weight. HENT: Head: Normocephalic and atraumatic. Mouth/Throat: Mouth: Mucous membranes are moist. Eyes: Pupils: Pupils are equal, round, and reactive to light. Cardiovascular: Rate and Rhythm: Normal rate and regular rhythm. Heart sounds: No murmur heard. No gallop. Pulmonary: Effort: Pulmonary effort is normal. No respiratory distress. Breath sounds: Normal breath sounds. No wheezing. Abdominal: General: Abdomen is flat. Palpations: There is no mass. Tenderness: There is no abdominal tenderness. There is no guarding or rebound. Musculoskeletal: Cervical back: Normal range of motion. Right lower leg: No edema. Left lower leg: No edema. Comments: Paraplegia in bilateral lower extremity. No obvious wounds or def (more content not included)...[facility]12-17-2024 NoteHNO ID: [id number] Author: FANI ALMODOVAR [facility] Service: Pharmacy Author Type: Pharmacist Type: Plan of Care Filed: 04/19/2024 15:00 Note Text: PHARMACY MEDICATION REVIEW Patient Name: Aleena Andrea : 1950 The following medications were updated within the INDUSTRIAL SOCIOLOGIST medication list: Medications ADDED to INDUSTRIAL SOCIOLOGIST medication list Fiber one gummie - 1 daily Medications CHANGED on INDUSTRIAL SOCIOLOGIST medication list Miralax 1 dose daily prn constipation Duloxetine 30 mg daily AM Duloxetine 60 mg daily PM APAP 325 mg - 2 qid prn pain Pain Pump Hydromorphone / baclofen Medications REMOVED from INDUSTRIAL SOCIOLOGIST medication list Bisacodyl Amitriptyline Tizanidine Triamcinolone Baclofen tablet Additional comments: met with pt at bedside and reviewed [facility] records. The below information represents the best possible medication history: Yes Medication history completed by: Pharmacist: Fani Almodovar [facility] Source of history: Patient: Reliability of source: Appears reliable, clearly identified: Medication name, Medication dose, Medication route, Medication frequency, Timing of last dose, and Indications, Outside hospital records - Name:[facility], [facility] records, Care Everywhere records, and [facility] Medication nonadherence identified: No barriers noted Reconciliation completed: Yes Completed by: IM Team All INDUSTRIAL SOCIOLOGIST medications addressed by LIP Patient interested in Bedside Delivery Services or using OP Pharmacy at discharge? Unable to assess Preferred outpatient pharmacy: [facility] [place] [place] [address] - [address] - [phone] [facility] Allergies: Ziconotide Other: See Comments Comment:Aka prialt Prior to Admission Medications Prescriptions Last Dose Informant Patient Reported? Taking? DENOSUMAB (PROLIA SUBCUTANEOUS) Yes No Sig: Inject subcutaneously. One injection every 6 months. DULoxetine (CYMBALTA) 30 mg capsule 04/14/2024 Yes Yes Sig: Take 90 mg by mouth once daily. 30 mg daily in the morning 60 mg daily in the evening NAPROXEN ORAL 04/14/2024 Yes Yes Sig: Take 375 mg by mouth twice daily. NaCl (PF) 0.9% soln Yes No Sig: by INTRATHECAL route continuous. Hydromorphone and baclofen POLYETHYLENE GLYCOL 3350 (MIRALAX ORAL) Yes Yes Sig: Take 1 Packet by mouth once daily as needed (constipation). WHEELCHAIR MISC No No Sig: STANDING WHEELCHAIR acetaminophen (TYLENOL) 325 mg tablet Yes No Sig: Take 650 mg by mouth four times a day as needed for pain. cloNIDine HCl (CATAPRES) 0.2 mg tablet 04/13/2024 Yes Yes Sig: Take 0.2 mg by mouth daily at bedtime. docusate sodium (COLACE) 100 mg capsule Yes Yes Sig: Take 100 mg by mouth twice daily as needed for constipation. gabapentin (NEURONTIN) 800 mg tablet 04/14/2024 Yes Yes Sig: Take 800 mg by mouth four times daily. inulin (FIBER GUMMIES ORAL) Yes No Sig: Take 1 Each by mouth once daily. oxycodone HCl (OXYCODONE ORAL) 04/14/2024 Yes Yes Sig: Take 15 mg by mouth four times daily. traZODone 100 mg tablet 04/13/2024 Yes Yes Sig: Take 100 mg by mouth daily at bedtime. Facility-Administered Medications: None Charline MontanezD, [facility] 04/19/2024[facility]12-17-2024 NoteHNO ID: [id number] Author: PATRICK SHAIKH APRN.CRNA Service: Anesthesiology Author Type: Nurse Clinical Nurse Manager Type: Anesthesia Procedure Notes Filed: 04/19/2024 11:12 Note Text: ANESTHESIOLOGY PROCEDURE NOTE Airway General Information Procedure Start Time/Medication Administration: 04/19/2024 10:57 AM Procedure End Time: 04/19/2024 10:57 AM Patient location during procedure: OR Timeout Performed Pre-procedure: timeout performed Consent Obtained: Yes Patient identity confirmed: arm band Staffing Performed by: SIMRAN Indications and Patient Condition Indications for airway management: anesthesia Preoxygenated: yes Patient position: sniffing Method: asleep Airway Accessory: LMA Final Airway Details Final airway type: supraglottic airway Number of attempts at approach: 1 Final Supraglottic Airway: i-gel Size 3 Seal Adequate: yes Airway not difficult SIGNATURE: Patrick Shaikh APRN.CRNA PATIENT NAME: Aleena Andrea DATE: April 19, 2024 TIME: 11:11 AM CSN: [id number] [facility]12-17-2024 NoteHNO ID: [id number] Author: FRANCISCA SWANSON MD Service: Pain Management Author Type: Physician Type: Progress Notes Filed: 04/19/2024 14:45 Note Text: Name: ALEENA ANDREA Age: [age] year old PAIN MANAGEMENT: Subcutaneous ischial/rectal abscess, history of paraplegia from transverse myelitis, chronic pain syndrome, intrathecal pump Pain Description: Patient feels a little better this morning. To return to the OR today for debridement Interval HPI: stable overnight. Further debridement per surgery today 04/16 IR aspiration fluid from pelvic collection. Only 2 cc removed, no large abscess noted 04/14 debridement right ischial pressure ulcer 24H Comfort Meds: Voltaren gel x 3 Fentanyl 50 mcg IV x 1 Gabapentin 800 mg x 4 Oxycodone 15 mg x 5 Melatonin 3 mg x 1 MiraLAX x 0 Trazodone 100 mg x 1 Senna S1 tab x 2 Intrathecal pump Dilaudid and baclofen, bupivacaine Subjective HPI: 73-year-old female with history of transverse myelitis with subsequent paralysis (July 2000) s/p intrathecal pain pump, chronic wounds, neurogenic bladder s/p lap augmentation cystoplasty with ileoileal catheterizable stoma at umbilicus, CAD, CHF, osteoporosis, depression presented 04/13 from [facility] ED for increased right hip pain and progressive wounds. CTAP from [facility] showed right sided 8.5x8.3cm subcutaneous abscess extending into the right ischial rectal fossa along with extensive soft tissue edema/cellulitis. This finding is new since last CT scan 09/2022. Patient seen by surgery with plan for debridement. Labs included WBC 11.6 hemoglobin 9. In the ER, patient had mild hypotension 70s/50s which improved with IV fluids. Of note, patient states she took clonidine 0.2 mg last night (part of her pain regimen?) I was involved in patient's care during her admission in Sep, 2022 for SBO. Home pain regimen managed by [facility] includes intrathecal pump (Dilaudid, baclofen) oxycodone 15 mg up to 4 tabs daily, gabapentin 800 mg 4 times daily, Naprosyn 375 mg twice daily, clonidine 0.2 mg at bedtime, trazodone 100 mg at bedtime. Patient states she gets IT pump filled weekly and is due to be filled next week. She lives alone in her apartment with minimal assistance. Her daughter does provide support. OARRS Review: 71 prescriptions from 8 prescribers. Opiate dependent. Most recent prescriptions: 03/15, 04/12 Dilaudid powder 04/11 oxycodone 5 mg #33 04/10 oxycodone 5 mg #3 12 oxycodone 5 mg #24 04/06 gabapentin 800 mg #120 03/23 oxycodone 15 mg #120 Current Facility-Administered Medications Medication Dose Route Frequency Provider Last Rate Last Admin lidocaine 10 mg/mL (1 %) 10-100 mg injection (XYLOCAINE) 1-10 mL INTRADERMAL DIRECTED PRN Moni Worley MD enoxaparin 30 mg injection (LOVENOX) 30 mg SUBCUTANEOUS q 24 HR Moni Worley MD 30 mg at 04/18/24 1245 cloNIDine HCl 0.1 mg tab(s) (CATAPRES) 0.1 mg ORAL AT BEDTIME Moni Worley MD 0.1 mg at 04/18/24 2225 mupirocin 2 % ointment (BACTROBAN) TOPICAL TID Moni Worley MD Given at 04/19/24 0908 melatonin 3 mg tab(s) 3 mg ORAL DAILY (8 PM) Moni Worley MD 3 mg at 04/17/24 2105 diclofenac 1 % 4 g topical gel (VOLTAREN) 4 g TOPICAL QID Moni Worley MD 4 g at 04/19/24 1400 ondansetron (PF) 4 mg injection (ZOFRAN) 4 mg INTRAVENOUS q 6 H PRN Moni Worley MD 4 mg at 04/18/24 2240 bisacodyl 10 mg suppository (DULCOLAX) 10 mg RECTAL DAILY PRN Moni Worley MD prochlorperazine 5 mg injection (COMPAZINE) 5 mg INTRAVENOUS q 6 H PRN Moni Worley MD 5 mg at 04/15/24 1832 vancomycin dosing and monitoring per pharmacy OTHER As Directed Moni Worley MD piperacillin-tazobactam iv piggyback 3.375 g in dextrose (iso-osmotic) 50 mL (ZOSYN) 3.375 g INTRAVENOUS q 6 H Moni Worley MD 100 mL/hr at 04/19/24 1359 3.375 g at 04/19/24 1359 vancomycin 750 mg in D5W 250 mL Vial-Bag (VANCOCIN) 0.015 g/kg/dose INTRAVENOUS q 12 HR Moni Worley MD Stopped at 04/19/24 1008 gabapentin 800 mg cap(s) (NEURONTIN) 800 mg ORAL q 6 H Moni Worley MD 800 mg at 04/19/24 0527 oxyCODONE IR 15 mg tab(s) (ROXICODONE) 15 mg ORAL q 4 H PRN Moni Worley MD 15 mg at 04/19/24 1358 fentaNYL 50 mcg/mL 50 mcg injection (SUBLIMAZE) 50 mcg INTRAVENOUS q 2 H PRN Moni Worley MD 50 mcg at 04/18/24 2228 senna-docusate 8.6-50 mg 1 tablet (SENNA-S) 1 tablet ORAL BID Moni Worley MD 1 tablet at 04/19/24 0908 polyethylene glycol 3350 17 g packet 17 g ORAL DAILY PRN Moni Worley MD 17 g at 04/15/24 0854 HYDROmorphone (PWD) 1 mg patient's own pump - MAR placeholder INTRATHECAL CONTINUOUS Moni Worley MD traZODone 100 mg tab(s) (DESYREL) 100 mg ORAL AT BEDTIME Moni Worley MD 100 mg at 04/18/24 2225 NaCl 0.9% iv flush bag 20 mL INTRAVENOUS PRN Moni Worley MD oxycodone HCl (OXYCODONE ORAL), Take 15 mg by mouth four times (more content not included)...[facility]12-17-2024 NoteHNO ID: [id number] Author: GUSTABO SALDIVAR MD Service: Hospital Medicine Author Type: Resident Type: Progress Notes Filed: 04/19/2024 17:06 Note Text: Attestation signed by Gustabo Saldivar MD at 04/19/2024 5:06 PM Attending Note I personally saw and examined the patient. I reviewed the resident's note. I agree with the resident's assessment and plan unless otherwise noted. Uneventful debridement of right ischial wound, debrided to muscle. Stable postop. Continue antibiotics; vancomycin and Zosyn, per ID recommendations follow-up ID plan duration of prolonged IV antibiotics. Disposition: Return to [facility] pending final surgical and ID plans. Signature: Gustabo Saldivar MD Date: 04/19/2024 Time: 5:03 PM [facility] [place] PATIENT NAME: Aleena Andrea ADMITTED FOR: LOS: 5 days Subjective HPI Ms. 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 CTAP from [facility] showed right sided 8.5x8.3cm subcutaneous abscess extending into the right ischial rectal fossa along with extensive soft tissue edema/cellulitis. This finding is new since last CT scan 09/2022. General surgery saw patient and will plan for possible debridement. But with multiple comorbidities will admit to medicine floor. Denies fevers, chills, abdominal pain, N, or vomiting. On arrival to ED, BP 100/53, HR 79, afebrile, SpO2 96% on RA. CBC with leukocytosis of 11.57, chronic stable anemia at 9.0, plt count elevated at 617 (likely reactive). CMP with Cr stable. Developed soft pressure of 70/50s. Given fluids. Nurse does suspect patient took medication from home possibly while in the ED. Sepsis lactate 0.6. UA unremarkable. INTERVAL EVENTS No acute events overnight. Patient encountered this morning resting comfortably in bed. She reports her baseline level of abdominal pain which is a 7/10 but controlled on her pain regimen. She denies any fever, chills, nausea, vomiting, chest pain, shortness of breath, urinary changes, or new onset symptoms. We discussed her upcoming debridement with the surgery team with plans to have a PICC line inserted for outpatient IV antiobic treatment to which she expressed agreement. Patient encountered post procedure. She reported feeling well and denied any extreme pain from the surgical site. She denies any fevers chills nausea vomiting or new onset symptoms. I reported to her that the procedure went well and we will continue to monitor her overnight and plan for PICC line placement for [facility] to which she expressed agreement. Pertinent results today: Afebrile, HR normal, MAP 65, SpO2 94 on RA Hemoglobin 8.3 Micki cardona Regional [facility] Manager Updates Gen Surg IR noted reviewed, unable to drain any fluid but necrotic tissue noted on imaging and on attempted drain placement. Wound examined bedside and I am able to appreciate some persistent necrotic tissue in base with significant tunneling. Discussed debridement with patient who was amenable to this, will add on for OR tomorrow ID - cont zosyn + vanco for now - planning for CoPAT , ?cefriaxone vs vanco, duration TBD ~4 weeks - aware further debridement tomorrow Pain management Opiate dependent before admission; intrathecal Dilaudid, bupivacaine and baclofen pump Voltaren gel 4 times daily Gabapentin 800 mg every 6 hours Continue Fentanyl 50 mcg IV every 2 hours as needed for breakthrough pain. Minimal use Oxycodone 15 mg every 4 hours as needed for moderate to severe pain Senna S twice daily, MiraLAX daily as needed. Dulcolax suppository as needed Objective OBJECTIVE BP 157/82 Pulse 82 Temp 36.5 ?C (97.7 ?F) (Oral) Resp 18 Ht 154.9 cm (5' 1) Wt 54.1 kg (119 lb 4.3 oz) LMP 08/16/2002 SpO2 96% BMI 22.54 kg/m? Temp (24hrs), Av.4 ?C (97.6 ?F), Min:36 ?C (96.8 ?F), Max:36.9 ?C (98.5 ?F) Body mass index is 22.54 kg/m?., Hemoglobin A1C (%) Date Value 04/14/2024 4.5 Intake/Output Summary (Last 24 hours) at 04/19/2024 1633 Last data filed at 04/19/2024 1429 Gross per 24 hour Intake 1010 ml Output 3420 ml Net -2410 ml Physical Exam Constitutional: General: She is not in acute distress. Appearance: Normal appearance. She is normal weight. HENT: Head: Normoc (more content not included)...[facility] 04-18-2024 NoteHNO ID: [id number] Author: JENNIFER JEAN MD Service: General Surgery Author Type: Physician Type: Plan of Care Filed: 04/18/2024 21:34 Note Text: IR noted reviewed, unable to drain any fluid but necrotic tissue noted on imaging and on attempted drain placement. Wound examined bedside and I am able to appreciate some persistent necrotic tissue in base with significant tunneling. Discussed debridement with patient who was amenable to this, will add on for OR tomorrow. Jennifer Jean [facility]12-16-2024 NoteHNO ID: [id number] Author: BONITA LAMBERT RN Service: Care Management Author Type: Registered Nurse Type: Care Mgt Progress Note Filed: 04/18/2024 14:18 Note Text: CARE MANAGEMENT PROGRESS NOTE SERVICE DATE: 04/18/2024 SERVICE TIME: 2:13 PM LOS: 4 days Post-Acute Discharge Planning Patient Goal(s): Better mobility, Increase strength, General wellness [place] of [place] Explained: [place] of Choice Given: Yes Level of Care Discussed: Senior Living Facility Discharge Planning Participant(s): Patient Patient/Family Comments: Anticipated # of Days Until Discharge: 3 Transport at Discharge: Transportation Arrangements: To Be Determined Needs Prior to Discharge: Needs Prior to Discharge: To Be Determined, Discharge Transportation Post-Acute Discharge Plan: Chart reviewed. Patient continues on IV abx. Anticipate CoPAT at DC, awaiting final ID recs. DC plan is to return to [facility]. Anticipate patient will need transport given unable to transfer during last PT session. SIGNATURE: Bonita Lambert RN PATIENT NAME: Aleena Andrea DATE: April 18, 2024 TIME: 2:13 [facility]12-16-2024 NoteHNO ID: [id number] Author: GUSTABO SALDIVAR MD Service: Hospital Medicine Author Type: Resident Type: Progress Notes Filed: 04/18/2024 20:02 Note Text: Attestation signed by Gustabo Saldivar MD at 04/18/2024 8:02 PM Attending Note I personally saw and examined the patient. I reviewed the resident's note. I agree with the resident's assessment and plan unless otherwise noted. 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 04/13, 1 blood culture positive for Staph hominis, and 04/16-needle aspiration positive for rare Staph aureus. No new changes today. No new changes today. No signs of ongoing sepsis surgery team as planned for OR debridement of the right ischial wound tomorrow. Follow up final culture from right ischial fine-needle aspiration growing Staph aureus. Patient's pain is manageable; continue current regimen. Signature: Gustabo Saldivar MD Date: 04/18/2024 Time: 7:58 PM [facility] [place] PATIENT NAME: Aleena Andrea ADMITTED FOR: LOS: 4 days Subjective HPI Ms. 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 CTAP from [facility] showed right sided 8.5x8.3cm subcutaneous abscess extending into the right ischial rectal fossa along with extensive soft tissue edema/cellulitis. This finding is new since last CT scan 09/2022. General surgery saw patient and will plan for possible debridement. But with multiple comorbidities will admit to medicine floor. Denies fevers, chills, abdominal pain, N, or vomiting. On arrival to ED, BP 100/53, HR 79, afebrile, SpO2 96% on RA. CBC with leukocytosis of 11.57, chronic stable anemia at 9.0, plt count elevated at 617 (likely reactive). CMP with Cr stable. Developed soft pressure of 70/50s. Given fluids. Nurse does suspect patient took medication from home possibly while in the ED. Sepsis lactate 0.6. UA unremarkable. INTERVAL EVENTS No acute events overnight. Patient encountered this morning resting comfortably in bed she reports improvement in her hip pain. She denies any fever, chills, nausea, vomiting, chest pain, shortness of breath, abdominal pain, urinary changes, or new onset symptoms. We discussed with the patient and her daughter over the phone plans for debridement in the OR for the necrotic tissue nodes found by IR to which she expressed agreement furthermore we discussed plans for continued IV antibiotics after the hospital for treatment of the Staph aureus that was seen on culture. Pertinent results today: Afebrile, HR normal, MAP 65, SpO2 94 on RA Culture from aspirate shows many PMNs and Staph hominis Blood culture: Staph hominis (contaminant) Rare S. Aureus on wound culture Objective OBJECTIVE BP 126/82 Pulse 65 Temp 36.3 ?C (97.3 ?F) (Oral) Resp 18 Ht 154.9 cm (5' 1) Wt 54.1 kg (119 lb 4.3 oz) LMP 08/16/2002 SpO2 97% BMI 22.54 kg/m? Temp (24hrs), Av.5 ?C (97.7 ?F), Min:36.3 ?C (97.3 ?F), Max:36.8 ?C (98.2 ?F) Body mass index is 22.54 kg/m?., Hemoglobin A1C (%) Date Value 04/14/2024 4.5 Intake/Output Summary (Last 24 hours) at 04/18/2024 1615 Last data filed at 04/18/2024 1315 Gross per 24 hour Intake 778 ml Output 3300 ml Net -2522 ml Physical Exam Constitutional: General: She is not in acute distress. Appearance: Normal appearance. She is normal weight. HENT: Head: Normocephalic and atraumatic. Mouth/Throat: Mouth: Mucous membranes are moist. Eyes: Pupils: Pupils are equal, round, and reactive to light. Cardiovascular: (more content not included)...[facility] 04-17-2024 NoteHNO ID: [id number] Author: CASE PHAN MD Service: Hospital Medicine Author Type: Resident Type: Progress Notes Filed: 04/17/2024 19:40 Note Text: Attestation signed by Case Phan MD at 04/17/2024 7:40 PM [facility] ATTENDING ATTESTATION: I saw and evaluated the patient on rounds on 04/17/24. Discussed case with the medicine team and agree with resident's findings and plan as documented in the resident's note. No new fevers or chills overnight. She did experience some nausea. Reported having bowel movements. Pain under reasonable control. Currently on vancomycin and Zosyn per ID. Aspiration culture from drain placement attempt growing staph aureus. Will follow-up for additional surgical recommendations. Case Phan MD [facility] [place] PATIENT NAME: Aleena Andrea ADMITTED FOR: LOS: 3 days Subjective HPI Ms. 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 not on meds -HTN on clonidine -Depression on trazodone, duloxetine -Chronic sacral decubitus ulcers -Chronic pain on intrathecal pain pump, baclofen, gabapentin, oxycodone, amitriptyline, trazodone, tizanidine, naproxen Patient presented to [facility] from [facility] by EMS for hip pain for 1 week with progressive wounds on R hip. CTAP from [facility] showed right sided 8.5x8.3cm subcutaneous abscess extending into the right ischial rectal fossa along with extensive soft tissue edema/cellulitis. This finding is new since last CT scan 09/2022. General surgery saw patient and will plan for possible debridement. But with multiple comorbidities will admit to medicine floor. Denies fevers, chills, abdominal pain, N, or vomiting. On arrival to ED, BP 100/53, HR 79, afebrile, SpO2 96% on RA. CBC with leukocytosis of 11.57, chronic stable anemia at 9.0, plt count elevated at 617 (likely reactive). CMP with Cr stable. Developed soft pressure of 70/50s. Given fluids. Nurse does suspect patient took medication from home possibly while in the ED. Sepsis lactate 0.6. UA unremarkable. INTERVAL EVENTS Underwent IR guided aspiration of pelvic fluid collection (only 2 cc could be removed). No new events over night. Patient is on PRN oxycodone for pain which is helping her in relieving the pain. BP: 117/60 Temp: 36.4 ?C (97.6 ?F) Temp src: Oral Pulse: 72 Resp: 16 O2 Therapy: Room Air SpO2: 93 % Intake/Output Summary (Last 24 hours) at 04/17/2024 0810 Last data filed at 04/16/20242047 Gross per 24 hour Intake -- Output 1950 ml Net -1950 ml Labs: WBC 8.3 Hgb 8 Sodium 135 Culture from aspirate shows many PMNs and Staph hominis Blood culture: Staph hominis Objective OBJECTIVE BP 117/60 Pulse 72 Temp 36.4 ?C (97.6 ?F) Resp 16 Ht 154.9 cm (5' 1) Wt 54.1 kg (119 lb 4.3 oz) LMP 08/16/2002 SpO2 93% BMI 22.54 kg/m? Temp (24hrs), Av.6 ?C (97.8 ?F), Min:36.3 ?C (97.4 ?F), Max:37.2 ?C (98.9 ?F) Body mass index is 22.54 kg/m?., Hemoglobin A1C (%) Date Value 04/14/2024 4.5 Intake/Output Summary (Last 24 hours) at 04/17/2024 0809 Last data filed at 04/16/20242047 Gross per 24 hour Intake -- Output 1950 ml Net -1950 ml Physical Exam Constitutional: General: She is not in acute distress. Appearance: Normal appearance. She is normal weight. HENT: Head: Normocephalic and atraumatic. Mouth/Throat: Mouth: Mucous membranes are moist. Eyes: Pupils: Pupils are equal, round, and reactive to light. Cardiovascular: Rate and Rhythm: Normal rate and regular rhythm. Heart sounds: No murmur heard. No gallop. Pulmonary: Effort: Pulmonary effort is normal. No respiratory distress. Breath sounds: Normal breath sounds. No wheezing. Abdominal: General: Abdomen is flat. Palpations: There is no mass. Tenderness: There is no abdominal tenderness. There is no guarding or rebound. Musculoskeletal: Cervical back: Normal range of motion. Right lower leg: No edema. Left lower leg: No edema. Comments: Paraplegia in bilateral lower extremity. No obvious wounds or deformities noted. Granulation tissue over debridement site. No hemorrhage or fluctuance. Skin: General: Skin is warm and dry. Capillary Refill: Capillary refill takes less than 2 seconds. Neurological: General: No focal deficit present. Mental Status: She is alert and oriented to person, place, and time. Cranial Nerves: No cranial nerve deficit. Motor: No weakness. LABORATORY: CBC: Recent Labs 04/17/24 0342 04/16/24 0621 04/15/24 0126 04/13/24 2335 WBC 8.34 6.27 8.17 11.57* HB 8.0* 7.6* 8.4 (more content not included)...[facility] 04-17-2024 NoteHNO ID: [id number] Author: FRANCISCA SWANSON MD Service: Pain Management Author Type: Physician Type: Progress Notes Filed: 04/17/2024 11:41 Note Text: Name: ALEENA ANDREA Age: [age] year old PAIN MANAGEMENT: Subcutaneous ischial/rectal abscess, history of paraplegia from transverse myelitis, chronic pain syndrome, intrathecal pump Pain Description: Patient states she had a horrible night with poor sleep. Sharp, constant pain at level 8. Pain a little bit better this morning Interval HPI: Pain issues overnight. 04/16 IR aspiration fluid from pelvic collection. Only 2 cc removed, no large abscess noted 04/14 debridement right ischial pressure ulcer 24H Comfort Meds: Voltaren gel x 2 Gabapentin 800 mg x 3 Oxycodone 15 mg x 3 Melatonin 3 mg x 1 MiraLAX x 0 Trazodone 100 mg x 1 Senna S1 tab x 2 Subjective HPI: 73-year-old female with history of transverse myelitis with subsequent paralysis (July 2000) s/p intrathecal pain pump, chronic wounds, neurogenic bladder s/p lap augmentation cystoplasty with ileoileal catheterizable stoma at umbilicus, CAD, CHF, osteoporosis, depression presented 04/13 from [facility] ED for increased right hip pain and progressive wounds. CTAP from [facility] showed right sided 8.5x8.3cm subcutaneous abscess extending into the right ischial rectal fossa along with extensive soft tissue edema/cellulitis. This finding is new since last CT scan 09/2022. Patient seen by surgery with plan for debridement. Labs included WBC 11.6 hemoglobin 9. In the ER, patient had mild hypotension 70s/50s which improved with IV fluids. Of note, patient states she took clonidine 0.2 mg last night (part of her pain regimen?) I was involved in patient's care during her admission in Sep, 2022 for SBO. Home pain regimen managed by [facility] includes intrathecal pump (Dilaudid, baclofen) oxycodone 15 mg up to 4 tabs daily, gabapentin 800 mg 4 times daily, Naprosyn 375 mg twice daily, clonidine 0.2 mg at bedtime, trazodone 100 mg at bedtime. Patient states she gets IT pump filled weekly and is due to be filled next week. She lives alone in her apartment with minimal assistance. Her daughter does provide support. OARRS Review: 71 prescriptions from 8 prescribers. Opiate dependent. Most recent prescriptions: 03/15, 04/12 Dilaudid powder 04/11 oxycodone 5 mg #33 04/10 oxycodone 5 mg #3 04/07 oxycodone 5 mg #24 04/06 gabapentin 800 mg #120 03/23 oxycodone 15 mg #120 Current Facility-Administered Medications Medication Dose Route Frequency Provider Last Rate Last Admin cloNIDine HCl 0.1 mg tab(s) (CATAPRES) 0.1 mg ORAL AT BEDTIME Rivas Vuong MD 0.1 mg at 04/16/242042 mupirocin 2 % ointment (BACTROBAN) TOPICAL TID Serenity Lee MD Given at 04/17/24 0835 melatonin 3 mg tab(s) 3 mg ORAL DAILY (8 PM) Enrique Olsen MD, MD 3 mg at 04/16/242042 diclofenac 1 % 4 g topical gel (VOLTAREN) 4 g TOPICAL QID Enrique Olsen MD, MD 4 g at 04/17/24 0835 ondansetron (PF) 4 mg injection (ZOFRAN) 4 mg INTRAVENOUS q 6 H PRN Enrique Olsen MD, MD 4 mg at 04/15/24 1501 bisacodyl 10 mg suppository (DULCOLAX) 10 mg RECTAL DAILY PRN Enrique Olsen MD, MD prochlorperazine 5 mg injection (COMPAZINE) 5 mg INTRAVENOUS q 6 H PRN Enrique Olsen MD, MD 5 mg at 04/15/24 1832 vancomycin dosing and monitoring per pharmacy OTHER As Directed Enrique Olsen MD, MD piperacillin-tazobactam iv piggyback 3.375 g in dextrose (iso-osmotic) 50 mL (ZOSYN) 3.375 g INTRAVENOUS q 6 H Enrique Olsen MD, MD Stopped at 04/17/24 0619 vancomycin 750 mg in D5W 250 mL Vial-Bag (VANCOCIN) 0.015 g/kg/dose INTRAVENOUS q 12 HR Enrique Olsen MD, MD Stopped at 04/17/24 1053 gabapentin 800 mg cap(s) (NEURONTIN) 800 mg ORAL q 6 H Enrique Olsen MD, MD 800 mg at 04/17/24 0547 oxyCODONE IR 15 mg tab(s) (ROXICODONE) 15 mg ORAL q 4 H PRN Enrique Olsen MD, MD 15 mg at 04/17/24 0946 fentaNYL 50 mcg/mL 50 mcg injection (SUBLIMAZE) 50 mcg INTRAVENOUS q 2 H PRN Enrique Olsen MD, MD 50 mcg at 04/16/24 2043 senna-docusate 8.6-50 mg 1 tablet (SENNA-S) 1 tablet ORAL BID Enrique Olsen MD, MD 1 tablet at 04/17/24 0835 polyethylene glycol 3350 17 g packet 17 g ORAL DAILY PRN Enrique Olsen MD, MD 17 g at 04/15/24 0854 HYDROmorphone (PWD) 1 mg patient's own pump - MAR placeholder INTRATHECAL CONTINUOUS Enrique Olsen MD, MD traZODone 100 mg tab(s) (DESYREL) 100 mg ORAL AT BEDTIME Enrique Olsen MD, MD 100 mg at 04/16/242042 NaCl 0.9% iv flush bag 20 mL INTRAVENOUS PRN Enrique Olsen MD, oxycodone HCl (OXYCODONE ORAL), Take 15 mg by mouth four times daily., Disp: , Rfl: , 04/14/2024 bisacodyl EC (DULCOLAX) 5 mg EC tablet, Take 2 tablets by mouth once daily as needed., Disp: , Rfl: DULoxetine (CYMBALTA) 30 mg capsule, Take 90 mg b (more content not included)... [facility]12-14-2024 NoteHNO ID: [id number] Author: FRANCISCA SWANSON MD Service: Pain Management Author Type: Physician Type: Progress Notes Filed: 04/16/2024 12:49 Note Text: Name: ALEENA ANDREA Age: [age] year old PAIN MANAGEMENT: Subcutaneous ischial/rectal abscess, history of paraplegia from transverse myelitis, chronic pain syndrome, intrathecal pump Pain Description: The right lower extremity pain controlled with present regimen. Patient needs BM Interval HPI: Stable overnight. No BM x 4 days. Agreeable for to Dulcolax suppository if needed Plan for IR aspiration fluid from pelvic collection today 04/14 debridement right ischial pressure ulcer 24H Comfort Meds: Voltaren gel x 2 Gabapentin 800 mg x 3 Oxycodone 15 mg x 4 Melatonin 3 mg x 1 MiraLAX x 1 Compazine 5 mg IV x 1 Trazodone 100 mg x 1 Senna S1 tab x 2 Subjective HPI: 73-year-old female with history of transverse myelitis with subsequent paralysis (July 2000) s/p intrathecal pain pump, chronic wounds, neurogenic bladder s/p lap augmentation cystoplasty with ileoileal catheterizable stoma at umbilicus, CAD, CHF, osteoporosis, depression presented 04/13 from [facility] ED for increased right hip pain and progressive wounds. CTAP from [facility] showed right sided 8.5x8.3cm subcutaneous abscess extending into the right ischial rectal fossa along with extensive soft tissue edema/cellulitis. This finding is new since last CT scan 09/2022. Patient seen by surgery with plan for debridement. Labs included WBC 11.6 hemoglobin 9. In the ER, patient had mild hypotension 70s/50s which improved with IV fluids. Of note, patient states she took clonidine 0.2 mg last night (part of her pain regimen?) I was involved in patient's care during her admission in Sep, 2022 for SBO. Home pain regimen managed by [facility] includes intrathecal pump (Dilaudid, baclofen) oxycodone 15 mg up to 4 tabs daily, gabapentin 800 mg 4 times daily, Naprosyn 375 mg twice daily, clonidine 0.2 mg at bedtime, trazodone 100 mg at bedtime. Patient states she gets IT pump filled weekly and is due to be filled next week. She lives alone in her apartment with minimal assistance. Her daughter does provide support. OARRS Review: 71 prescriptions from 8 prescribers. Opiate dependent. Most recent prescriptions: 03/15, 04/12 Dilaudid powder 04/11 oxycodone 5 mg #33 04/10 oxycodone 5 mg #3 04/07 oxycodone 5 mg #24 04/06 gabapentin 800 mg #120 03/23 oxycodone 15 mg #120 Current Facility-Administered Medications Medication Dose Route Frequency Provider Last Rate Last Admin melatonin 3 mg tab(s) 3 mg ORAL DAILY (8 PM) Enrique Olsen MD, MD 3 mg at 04/15/24 0119 diclofenac 1 % 4 g topical gel (VOLTAREN) 4 g TOPICAL QID Enrique Olsen MD, MD 4 g at 04/16/24 0949 ondansetron (PF) 4 mg injection (ZOFRAN) 4 mg INTRAVENOUS q 6 H PRN Enrique Olsen MD, MD 4 mg at 04/15/24 1501 bisacodyl 10 mg suppository (DULCOLAX) 10 mg RECTAL DAILY PRN Enrique Olsen MD, MD prochlorperazine 5 mg injection (COMPAZINE) 5 mg INTRAVENOUS q 6 H PRN Enrique Olsen MD, MD 5 mg at 04/15/241831 cloNIDine HCl 0.2 mg tab(s) (CATAPRES) 0.2 mg ORAL AT BEDTIME Enrique Olsen MD, MD 0.2 mg at 04/15/242053 vancomycin dosing and monitoring per pharmacy OTHER As Directed Enrique Olsen MD, MD piperacillin-tazobactam iv piggyback 3.375 g in dextrose (iso-osmotic) 50 mL (ZOSYN) 3.375 g INTRAVENOUS q 6 H Enrique Olsen MD, MD Stopped at 04/16/24 0635 vancomycin 750 mg in D5W 250 mL Vial-Bag (VANCOCIN) 0.015 g/kg/dose INTRAVENOUS q 12 HR Enrique Olsen MD, MD Stopped at 04/16/24 1119 gabapentin 800 mg cap(s) (NEURONTIN) 800 mg ORAL q 6 H Enrique Olsen MD, MD 800 mg at 04/16/24 0605 oxyCODONE IR 15 mg tab(s) (ROXICODONE) 15 mg ORAL q 4 H PRN Enrique Olsen MD, MD 15 mg at 04/16/24 0611 fentaNYL 50 mcg/mL 50 mcg injection (SUBLIMAZE) 50 mcg INTRAVENOUS q 2 H PRN Enrique Olsen MD, MD senna-docusate 8.6-50 mg 1 tablet (SENNA-S) 1 tablet ORAL BID Enrique Olsen MD, MD 1 tablet at 04/16/24 0949 polyethylene glycol 3350 17 g packet 17 g ORAL DAILY PRN Enrique Olsen MD, MD 17 g at 04/15/24 0854 HYDROmorphone (PWD) 1 mg patient's own pump - [facility] placeholder INTRATHECAL CONTINUOUS Enrique Olsen MD, MD traZODone 100 mg tab(s) (DESYREL) 100 mg ORAL AT BEDTIME Enrique Olsen MD, MD 100 mg at 04/15/242053 NaCl 0.9% iv flush bag 20 mL INTRAVENOUS PRN Enrique Olsen MD, MD oxycodone HCl (OXYCODONE ORAL), Take 15 mg by mouth four times daily., Disp: , Rfl: , 04/14/2024 bisacodyl EC (DULCOLAX) 5 mg EC tablet, Take 2 tablets by mouth once daily as needed., Disp: , Rfl: DULoxetine (CYMBALTA) 30 mg capsule, Take 90 mg by mouth once daily., Disp: , Rfl: , 04/14/2024 acetaminophen (TYLENOL) 325 mg tablet, Take 650 mg by m (more content not included)...[facility]12-14-2024 NoteHNO ID: [id number] Author: CASE PHAN MD Service: Hospital Medicine Author Type: Resident Type: Progress Notes Filed: 04/16/2024 21:01 Note Text: Attestation signed by Case Phan MD at 04/16/2024 9:01 PM [facility] ATTENDING ATTESTATION: I saw and evaluated the patient on rounds on 04/16/24. Discussed case with the medicine team and agree with resident's findings and plan as documented in the resident's note. Patient had attempted IR drainage of suspected abscess. During procedure no drainable fluid noted in area likely necrotic tissue per IR. Will follow-up with general surgery about additional recommendations. Pain management following. Pain under reasonable control. Continue antibiotics per ID at this time. Case Phan MD [facility] [place] PATIENT NAME: Aleena Andrea ADMITTED FOR: LOS: 2 days Subjective HPI Ms. 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 not on meds -HTN on clonidine -Depression on trazodone, duloxetine -Chronic sacral decubitus ulcers -Chronic pain on intrathecal pain pump, baclofen, gabapentin, oxycodone, amitriptyline, trazodone, tizanidine, naproxen Patient presented to [facility] from [facility] ED by EMS for hip pain for 1 week with progressive wounds on R hip. CTAP from [facility] showed right sided 8.5x8.3cm subcutaneous abscess extending into the right ischial rectal fossa along with extensive soft tissue edema/cellulitis. This finding is new since last CT scan 09/2022. General surgery saw patient and will plan for possible debridement. But with multiple comorbidities will admit to medicine floor. Denies fevers, chills, abdominal pain, N, or vomiting. On arrival to ED, BP 100/53, HR 79, afebrile, SpO2 96% on RA. CBC with leukocytosis of 11.57, chronic stable anemia at 9.0, plt count elevated at 617 (likely reactive). CMP with Cr stable. Developed soft pressure of 70/50s. Given fluids. Nurse does suspect patient took medication from home possibly while in the ED. Sepsis lactate 0.6. UA unremarkable. INTERVAL EVENTS Overnight, patient's clonidine was restarted for sleep. Patient encountered this morning resting comfortably in bed. She reports sleeping better since clonidine was restarted. She denies any acute complaints or symptoms including fever, chills, nausea, vomiting, chest pain, shortness of breath, abdominal pain, urinary changes, or new onset symptoms. We dicussed potentially taking the patient to IR for abdominal fluid collection to which she expressed agreement. Patient encountered post IR drainage procedure. She reports tolerating the procedure well and denies any pain. We discussed the findings of the necrotic tissue with both her and her daughter who was on the phone. We explained our plan to reach out to us or hospital to obtain prior CT records to evaluate for presence of necrotic tissue in the past few months as well as reach out to the surgical team for advice regarding further debridement or other recommendations. Will continue on broad-spectrum antibiotics in the interim with ID team following closely. Today's pertinent results include: Afebrile, HR normal, BP soft, getting better, SpO2 95 on RA MSSA detected on MRSA swab Hgb 8.4 -> 7.6 Consultation updates, all recs are appreciated: General Surgery -S/P OR for debridement on 04/14 -Cont daily dressing changes -Wound bed appears to be healing appropriately - Recommend discussion with IR for potential drainage for fluid around sacrum - Surgery will continue to follow Pain Management Current Regimen: Intrathecal pump Oxy 15mg q4h prn Fentanyl 50mcg iv q2h prn Pain plan for next 24 Hours: Add voltaren 4x/d Encouraged pt to use fentanyl if needed ID - cont zosyn + vanco for now - await bcx - aware surgery recommended potential IR drainage of fluid collection in pelvis - planning for CoPAT , tentative ertapenem , duration TBD 2-4 weeks - check MRSA screen Objective OBJECTIVE BP 111/54 Pulse 75 Temp 36.4 ?C (97.5 ?F) Resp 21 Ht 154.9 cm (5' 1) Wt 54.1 kg (119 lb 4.3 oz) LMP 08/16/2002 SpO2 97% BMI 22.54 kg/m? Temp (24hrs), Av.6 ?C (97.8 ?F), Min:36.3 ?C (97.4 ?F), Max:36.8 ?C (98.3 ?F) Body mass index is 22.54 kg/m?., Hemoglobin A1C (%) Date Value 04/14/2024 4.5 Intake/Output Summary (Last 24 hours) at 04/16/2024 1548 Last data filed at 04/16/2024 1312 Gross per 24 hour Intake 360 ml Output 2050 ml Net -1690 ml Physical Exam Constitutional: General: She is not in acute distress. Appearance: Norm (more content not included)...[facility] 04-16-2024 NoteHNO ID: [id number] Author: NOTE, INTERFACE, ? Service: ? Author Type: ? Type: Progress Notes Filed: 04/21/2024 16:04 Note Text: Epic Scheduled Downtime: 04/16/2024 1:00:00 AM to 04/16/2024 2:52:17 [facility]12-13-2024 NoteHNO ID: [id number] Author: BONITA LAMBERT, RN Service: Care Management Author Type: Registered Nurse Type: Care Mgt Initial Assessment Filed: 04/15/2024 11:45 Note Text: CARE MANAGEMENT: ASSESSMENT AND DISCHARGE PLAN SERVICE DATE: April 15, 2024 SERVICE TIME: 11:00 AM PCP: Cara Arce MD Primary Contact: Extended Emergency Contact Information Primary Emergency Contact: Bela Andrea Mobile Relation: Daughter Secondary Emergency Contact: Elie Andrea Mobile Relation: Daughter Admission Status: Inpatient Insurance Provider: MEDICARE A AND B Discharge Planning requested by: Per Department Practice Potential Transition Plans Senior Living Facility/Intermediate Care Facility Advance Directives Current Advance Directive: Health Care Power of Instrumentation Supervisor In Chart: No Current Living Arrangements and Support Lives with: Type of Residence: Private Residence (Apartment or Condo) Does the patient have to climb stairs at home?: No Support: Children How do you manage to accomplish the following: Independent: Ambulation;Bathe/Shower;Dress;Meals/Meal Prep;Going to the bathroom;Medication Management Needs Assistance: Transportation to appointments/community Current Services/Equipment Current Post-Acute Service(s): DME Current DME Type: Wheelchair-electric, Shower seat, Hospital bed Discharge Planning Patient Goal(s): Better mobility, Increase strength, General wellness [place] of Choice Explained: [place] of Choice Given: Yes (patient would like to return to [facility]) Level of Care Discussed: Senior Living Facility Are you interested in bedside delivery of your medications? No Discharge Planning Participant(s): Patient Patient/Family Comments: Caregiver Assessment: Caregiver is ready, willing and able to meet the patient's needs as recommended by the inter-professional team: No Transport at Discharge: Transportation Arrangements: To Be Determined Needs Prior to Discharge: Needs Prior to Discharge: To Be Determined;OT/PT Evaluation Post-Acute Discharge Plan: Chart reviewed and met with patient in room. Patient lives at [facility] in the Independent Living. She was admitted from the SNF at [place] where she states she has been since Apr 04 or . Patient is typically independent but does not drive, is able to transfer self to her power w/c and has a hospital bed and shower bench. Anticipate patient to return to SNF LOC, requested therapy eval orders. Patient's daughter may transport via private w/c van at [place] if appropriate. Tasked for return referral to be sent to [facility]. SIGNATURE: Bonita Lambert RN PATIENT NAME: Aleena Andrea DATE: April 15, 2024 TIME: 11:42 [facility]12-13-2024 NoteHNO ID: [id number] Author: YISEL MOSES APRN.[employer] Service: Pain Management Author Type: Nurse Specialist Type: Progress Notes Filed: 04/15/2024 11:42 Note Text: INPATIENT PAIN MANAGEMENT NOTE [facility] Aleena Andrea [id number]* Pain Management Diagnoses: Subcutaneous ischial/rectal abscess, history of paraplegia from transverse myelitis, chronic pain syndrome, intrathecal pump, post op pain Interval HPI: s/p debridement of R ischial pressure ulcer 04/14 Pain Assessment: pain always there but fairly well controlled. Mostly hips and legs today Symptom Meds Last 24 Hrs: Iggy 800 mg q6h Miralax prn Senna BID Trazodone 100mg HS Opioid meds last 24 hours: Fentanyl 50mcg IV q2h prn x0 Oxy 15mg q4h prn x4 Total MME last 24 hours: 90 Intrathecal Pump Info per notes: The pump is a [employer] Cloudtronic Synchromed II. Pump capacity is 20 cc. Concentrations in the pump are Dilaudid 32 mg bupivcaine 30mg and baclofen 2000. Refill Apr 19, will be dry Apr 25. Subjective Will be communicated via notes in chart. HPI: 73-year-old female with history of transverse myelitis with subsequent paralysis (July 2000) s/p intrathecal pain pump, chronic wounds, neurogenic bladder s/p lap augmentation cystoplasty with ileoileal catheterizable stoma at umbilicus, CAD, CHF, osteoporosis, depression presented 04/13 from [facility] ED for increased right hip pain and progressive wounds. CTAP from [facility] showed right sided 8.5x8.3cm subcutaneous abscess extending into the right ischial rectal fossa along with extensive soft tissue edema/cellulitis. This finding is new since last CT scan 09/2022. Patient seen by surgery with plan for debridement. Labs included WBC 11.6 hemoglobin 9. In the ER, patient had mild hypotension 70s/50s which improved with IV fluids. Of note, patient states she took clonidine 0.2 mg last night (part of her pain regimen?) I was involved in patient's care during her admission in Sep, 2022 for SBO. Home pain regimen managed by [facility] includes intrathecal pump (Dilaudid, baclofen) oxycodone 15 mg up to 4 tabs daily, gabapentin 800 mg 4 times daily, Naprosyn 375 mg twice daily, clonidine 0.2 mg at bedtime, trazodone 100 mg at bedtime. Patient states she gets IT pump filled weekly and is due to be filled next week. She lives alone in her apartment with minimal assistance. Her daughter does provide support. Home Opioid Regimen: OARRS Check: PDMP website checked and validated. All prescriptions have been APPROPRIATELY filled. No suspicious activity was identified. 04/15/2024 by Yisel Moses APRN.[employer] Overdose Risk Score from OARRS: 130 71 prescriptions from 8 prescribers. Opiate dependent. Most recent prescriptions: 03/15, 04/12 Dilaudid powder 04/11 oxycodone 5 mg #33 04/10 oxycodone 5 mg #3 04/07 oxycodone 5 mg #24 04/06 gabapentin 800 mg #120 03/23 oxycodone 15 mg #120 Drug Screen Completed: No, Ordered: Yes Results: TBD Information obtained from chart review, discussion with patient/family, and discussion with primary team HPI may have been copied from previous pain team consult notes. PAST MEDICAL HISTORY Diagnosis Date Acute gastritis without mention of hemorrhage Anemia, unspecified CAD (coronary artery disease) CHF (congestive heart failure) ([facility]) Chronic pain Depression Dysphagia Internal hemorrhoids without mention of complication Migraine, unspecified, without mention of intractable migraine without mention of status migrainosus Mononeuritis of unspecified site 07/02 Neuropathy Nonorganic sleep disorder, unspecified Nonspecific abnormal finding in stool contents Osteoporosis, unspecified Other causes of myelitis Other general symptoms(780.99) Paraplegia (HCC) PMH - PAST MEDICAL HISTORY OF transverse mylitis pos. spasticity Respiratory failure ([facility]) Rosacea Transverse myelitis ([facility]) Unspecified cause of encephalitis, myelitis, and encephalomyelitis Unspecified constipation Unspecified constipation Unspecified urinary incontinence 07/03 Incontinence PAST MEDICAL HISTORY Diagnosis Date Acute gastritis without mention of hemorrhage Anemia, unspecified CAD (coronary artery disease) CHF (congestive heart failure) ([facility]) Chronic pain Depression Dysphagia Internal hemorrhoids without [...] Unspecified cause of encephalitis, myelitis, and encephalomyelitis Unspeci (more content not included)...[facility]12-13-2024 NoteHNO ID: [id number] Author: CASE PHAN MD Service: Hospital Medicine Author Type: Resident Type: Progress Notes Filed: 04/15/2024 21:24 Note Text: Attestation signed by Case Phan MD at 04/15/2024 9:24 PM (Updated) [facility] ATTENDING ATTESTATION: I saw and evaluated the patient on rounds on 04/15/24. Discussed case with the medicine team and agree with resident's findings and plan as documented in the resident's note. Appreciate surgery, pain management, and ID input. Patient did have some nausea today but improved after receiving nausea medications earlier today. Pain overall well-controlled. On antibiotics per ID. Planning for IR guided drain placement potentially 04/16. Lovenox on hold for procedure. Patient's daughter was present via speaker phone during interview and updated on situation and plan. Will need modification of bowel regimen if stooling not improving. Case Phan MD [facility] [place] PATIENT NAME: Aleena Andrea ADMITTED FOR: LOS: 1 days Subjective HPI Ms. 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 not on meds -HTN on clonidine -Depression on trazodone, duloxetine -Chronic sacral decubitus ulcers -Chronic pain on intrathecal pain pump, baclofen, gabapentin, oxycodone, amitriptyline, trazodone, tizanidine, naproxen Patient presented to [facility] from [facility] ED by EMS for hip pain for 1 week with progressive wounds on R hip. CTAP from [facility] showed right sided 8.5x8.3cm subcutaneous abscess extending into the right ischial rectal fossa along with extensive soft tissue edema/cellulitis. This finding is new since last CT scan 09/2022. General surgery saw patient and will plan for possible debridement. But with multiple comorbidities will admit to medicine floor. Denies fevers, chills, abdominal pain, N, or vomiting. On arrival to ED, BP 100/53, HR 79, afebrile, SpO2 96% on RA. CBC with leukocytosis of 11.57, chronic stable anemia at 9.0, plt count elevated at 617 (likely reactive). CMP with Cr stable. Developed soft pressure of 70/50s. Given fluids. Nurse does suspect patient took medication from home possibly while in the ED. Sepsis lactate 0.6. UA unremarkable. INTERVAL EVENTS Overnight, patient was requesting trazodone and melatonin. Patient encountered this morning s/p debridement yesterday. She reports no pain from the debridement site and overall feels better. She reports chronic right sided hip pain that has been ongoing for a year and was curious if there is anything that can be done to alleviate it. Otherwise she denies any fever, chills, nausea, vomiting, chest pain, shortness of breath, abdominal pain, urinary changes, or new onset symptoms. We discussed monitoring the patient on antibiotics and reaching out the ID team since a tissue biopsy sample was not collected during the debridement to which she expressed agreement. Today's pertinent results include: Afebrile, HR normal, BP soft, getting better, SpO2 95 on RA Blood culture 1 set growing gram positive cocci in clusters (likely contamination) Sed rate 44 Consultation updates, all recs are appreciated: General Surgery -S/P OR for debridement on 04/14 -Cont daily dressing changes -Wound bed appears to be healing appropriately - Recommend discussion with IR for potential drainage for fluid around sacrum - Surgery will continue to follow Pain Management Current Regimen: Intrathecal pump Oxy 15mg q4h prn Fentanyl 50mcg iv q2h prn Pain plan for next 24 Hours: Add voltaren 4x/d Encouraged pt to use fentanyl if needed ID - cont zosyn + vanco for now - await bcx - aware surgery recommended potential IR drainage of fluid collection in pelvis - planning for CoPAT , tentative ertapenem , duration TBD 2-4 weeks - check MRSA screen Objective OBJECTIVE BP 128/58 Pulse 72 Temp 36.3 ?C (97.4 ?F) (Axillary) Resp 20 Ht 154.9 cm (5' 1) Wt 54.1 kg (119 lb 4.3 oz) LMP 08/16/2002 SpO2 98% BMI 22.54 kg/m? Temp (24hrs), Av.6 ?C (97.9 ?F), Min:36.3 ?C (97.4 ?F), Max:36.8 ?C (98.2 ?F) Body mass index is 22.54 kg/m?., Hemoglobin A1C (%) Date Value 04/14/2024 4.5 Intake/Output Summary (Last 24 hours) at 04/15/2024 1515 Last data filed at 04/15/2024 0915 Gross per 24 hour Intake 240 ml Output 1400 ml Net -1160 ml Physical Exam Constitutional: General: She is not in acute distress. Appearance: Normal appearance. She is normal weight. HENT: Head: Normocephalic and atraumatic. Mouth/Throat: Mouth: Mucous membranes are moist. E (more content not included)...[facility]12-12-2024 NoteHNO ID: [id number] Author: NIXON MARTIN RN Service: Nursing Author Type: Registered Nurse Type: Nursing Progress Note Filed: 04/14/2024 17:12 Note Text: [facility]24 NoteHNO ID: [id number] Author: CASE PHAN MD Service: Hospital Medicine Author Type: Resident Type: Progress Notes Filed: 04/14/2024 21:23 Note Text: Attestation signed by Case Phan MD at 04/14/2024 9:23 PM [facility] ATTENDING ATTESTATION: I saw and evaluated the patient on rounds on 04/14/24. Discussed case with the medicine team and agree with resident's findings and plan as documented in the resident's note. Patient seen postdebridement. Discussed with RN. Continuing on empiric antibiotics of vancomycin and Zosyn at this time. Will follow-up with surgery about depth of infection. Pain management consulted. Case Phan MD [facility] [place] PATIENT NAME: Aleena Andrea ADMITTED FOR: LOS: 0 days Subjective HPI Ms. 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 not on meds -HTN on clonidine -Depression on trazodone, duloxetine -Chronic sacral decubitus ulcers -Chronic pain on intrathecal pain pump, baclofen, gabapentin, oxycodone, amitriptyline, trazodone, tizanidine, naproxen Patient presented to [facility] from [facility] ED by EMS for hip pain for 1 week with progressive wounds on R hip. CTAP from [facility] showed right sided 8.5x8.3cm subcutaneous abscess extending into the right ischial rectal fossa along with extensive soft tissue edema/cellulitis. This finding is new since last CT scan 09/2022. General surgery saw patient and will plan for possible debridement. But with multiple comorbidities will admit to medicine floor. Denies fevers, chills, abdominal pain, N, or vomiting. On arrival to ED, BP 100/53, HR 79, afebrile, SpO2 96% on RA. CBC with leukocytosis of 11.57, chronic stable anemia at 9.0, plt count elevated at 617 (likely reactive). CMP with Cr stable. Developed soft pressure of 70/50s. Given fluids. Nurse does suspect patient took medication from home possibly while in the ED. Sepsis lactate 0.6. UA unremarkable. INTERVAL EVENTS No acute events overnight. Patient encountered this morning resting comfortably in bed. She reports feeling largely the same compared to admission. She has continued right hip pain but that it is largely similar to her chronic lower extremity pain. She denies any fever, chills, nausea, vomiting, chest pain, shortness of breath, urinary changes, or new onset symptoms. We discussed plans for debridement today to which she expressed agreement. We also discussed the need for starting antibiotics in addition to treatment of the abscess to which she was agreeable. Today's pertinent results include: Afebrile, HR normal, BP soft, SpO2 91 on RA Lipid panel with low HDL UA negative CMP with mild hyponatremia CBC with mild leukocytosis (11.6) and left shift Hgb 9 Plt 617 CRP 2.3 CK 21 Consultation updates, all recs are appreciated: General Surgery - OR 04/15 for debridement - NPO for surgery - OK for DVT prophylaxis from surgical team perspective - Rst of management per primary Pain Management Plan for OR debridement per surgery Opiate dependent before admission; intrathecal Dilaudid and baclofen pump Hypotension noted in ER; patient states normal SBP 100. She did take clonidine 0.2 mg last night Gabapentin 800 mg every 6 hours Fentanyl 50 mcg IV every 2 hours as needed for breakthrough pain. If BP okay, change to Dilaudid IV as needed Oxycodone 15 mg every 4 hours as needed for moderate to severe pain Senna S twice daily, MiraLAX daily as needed per patient request Patient will follow up [place] pain management as planned; she was due to have her intrathecal pump refilled next week Objective OBJECTIVE BP 100/55 Pulse 70 Temp 36.6 ?C (97.9 ?F) (Temporal) Resp 18 Ht 154.9 cm (5' 1) Wt 44.5 kg (98 lb) LMP 08/16/2002 SpO2 94% BMI 18.52 kg/m? Temp (24hrs), Av.8 ?C (98.3 ?F), Min:36.6 ?C (97.9 ?F), Max:37 ?C (98.6 ?F) Body mass index is 18.52 kg/m?., No results found for: HBA1C Intake/Output Summary (Last 24 hours) at 04/14/2024 1345 Last data filed at 04/14/2024 0941 Gross per 24 hour Intake 500 ml Output 1800 ml Net -1300 ml Physical Exam Constitutional: General: She is not in acute distress. Appearance: Normal appearance. She is normal weight. HENT: Head: Normocephalic and atraumatic. Mouth/Throat: Mouth: Mucous membranes are moist. Eyes: Pupils: Pupils are equal, round, and reactive to light. Cardiovascular: Rate and Rhythm: Normal rate and regular rhythm. Heart sounds: No murmur heard. No gallop. Pulmonary: Effort: Pulmonary effort is normal. No respirato (more content not included)... [facility]12-03-2024 [facility]11-16-2021 Miscellaneous Notes* Telephone Encounter - Suma Fishman RN - 03/19/2021 9:35 AM EST Called patient and spoke with her. She is agreeable to increase to 50 mg. She would like to change her next video visit, she will stay in person for now and then call us if she wants to change to video. * Telephone Encounter - Gi Frances MD - 03/18/2021 5:08 PM EST Let's go ahead and increase to the 50 mg of amitriptyline at bedtime to see if she has any benefit.If there is not benefit at that dose, then I do not recommend further increases. * Telephone Encounter - Suma Fishman RN - 03/18/2021 1:25 PM EST Received a voicemail from patient stating she is calling to update Dr Frances that she is taking the amitriptyline and it is doing nothing for her pain. She has 50 mg at home, should she take these or go ahead and refill her 25 mg that she has on hand. Or should she stay at 25 mg. Call back [phone]. * Telephone Encounter - Nidia Ken CMA - 01/24/2021 1:06 PM EDT Called and spoke with Rosibel at [facility] and cancelled prescription for the amitriptyline. * Telephone Encounter - Nidia Ken CMA - 01/24/2021 12:08 PM EDT Called and spoke with pt she stated understanding on the increase with the amitriptyline. She askedfor the new prescription to be sent over to [facility] in [place] instead of the [facility]. Will que up new prescription and will call and cancel old prescription. * Telephone Encounter - Gi Frances MD - 01/24/2021 8:21 AM EDT I recommend increasing amitriptyline to 25 mg by mouth daily at bedtime. I sent a new script. Please let Aleena know. * Telephone Encounter - Nidia Ken CMA - 01/23/2021 1:11 PM EDT Pt LVM stating that she started the amitriptyline and was advised to call the office to let us knowif it is working or not. Pt stated that she hasn't noticed a difference since starting the medication. Please advise on next steps. documented in this [id number] Miscellaneous Notes* Telephone Encounter - Gi Frances MD - 03/18/2021 5:08 PM EST Let's go ahead and increase to the 50 mg of amitriptyline at bedtime to see if she has any benefit.If there is not benefit at that dose, then I do not recommend further increases. * Telephone Encounter - Suma Fishman RN - 03/18/2021 1:25 PM EST Received a voicemail from patient stating she is calling to update Dr Frances that she is taking the amitriptyline and it is doing nothing for her pain. She has 50 mg at home, should she take these or go ahead and refill her 25 mg that she has on hand. Or should she stay at 25 mg. Call back [phone]. * Telephone Encounter - Nidia Ken CMA - 01/24/2021 1:06 PM EDT Called and spoke with Rosibel at [facility] and cancelled prescription for the amitriptyline. * Telephone Encounter - Nidia Ken CMA - 01/24/2021 12:08 PM EDT Called and spoke with pt she stated understanding on the increase with the amitriptyline. She askedfor the new prescription to be sent over to [facility] in [place] instead of the [facility]. Will que up new prescription and will call and cancel old prescription. * Telephone Encounter - Gi Frances MD - 01/24/2021 8:21 AM EDT I recommend increasing amitriptyline to 25 mg by mouth daily at bedtime. I sent a new script. Please let Aleena know. * Telephone Encounter - Nidia Ken CMA - 01/23/2021 1:11 PM EDT Pt LVM stating that she started the amitriptyline and was advised to call the office to let us knowif it is working or not. Pt stated that she hasn't noticed a difference since starting the medication. Please advise on next steps. documented in this [id number] Miscellaneous Notes* Telephone Encounter - Suma Fishman RN - 03/18/2021 1:25 PM EST Received a voicemail from patient stating she is calling to update Dr Frances that she is taking the amitriptyline and it is doing nothing for her pain. She has 50 mg at home, should she take these or go ahead and refill her 25 mg that she has on hand. Or should she stay at 25 mg. Call back [phone]. * Telephone Encounter - Nidia Ken CMA - 01/24/2021 1:06 PM EDT [facility] the amitriptyline. * Telephone Encounter - Nidia Ken CMA - 01/24/2021 12:08 PM EDT Called and spoke with pt she stated understanding on the increase with the amitriptyline. She askedfor the new prescription to be sent over to [facility] in [place] instead of the [facility]. Will que up new prescription and will call and cancel old prescription. * Telephone Encounter - Gi Frances MD - 01/24/2021 8:21 AM EDT I recommend increasing amitriptyline to 25 mg by mouth daily at bedtime. I sent a new script. Please let Aleena know. * Telephone Encounter - Nidia Ken CMA - 01/23/2021 1:11 PM EDT Pt LVM stating that she started the amitriptyline and was advised to call the office to let us knowif it is working or not. Pt stated that she hasn't noticed a difference since starting the medication. Please advise on next steps. documented in this [id number] Miscellaneous Notes* Telephone Encounter - Nidia Ken CMA - 01/24/2021 1:06 PM EDT [facility] and [facility] for the amitriptyline. * Telephone Encounter - Nidia Ken CMA - 01/24/2021 12:08 PM EDT Called and spoke with pt she stated understanding on the increase with the amitriptyline. She askedfor the new prescription to be sent over to [facility] in [place] instead of the [facility]. Will que up new prescription and will call and cancel old prescription. * Telephone Encounter - Gi Frances MD - 01/24/2021 8:21 AM EDT I recommend increasing amitriptyline to 25 mg by mouth daily at bedtime. I sent a new script. Please let Aleena know. * Telephone Encounter - Nidia Ken CMA - 01/23/2021 1:11 PM EDT Pt LVM stating that she started the amitriptyline and was advised to call the office to let us knowif it is working or not. Pt stated that she hasn't noticed a difference since starting the medication. Please advise on next steps. documented in this [id number] Instructions* Patient Instructions* Analilia Oconnor DO - 10/04/2020 2:26 PM EDT 1. For [...] months with Dr. Frances documented in this [id number] History of Present illness Narrative* Analilia Oconnor DO - 10/04/2020 1:17 PM EDT [facility] Follow Up Note 10/04/2020 PATIENT REPORTED DISEASE SUMMARY Ethnicity Dominant Hand Right Employment Status Retired Primary Neurological Diagnosis Idiopathic Thoracic Transverse Myelitis Symptom Onset 2000 CHIEF COMPLAINT Neuroimmunologic follow up from 09/10/2020 CONTEMPORARY HISTORY Aleena Andrea reports no new or worsening neurological symptoms since her last clinic visit. Unfortunately, she has not noticed improvement in her neuropathic pain with increasing her bedtime doseof gabapentin. She increased her duloxetine from 60 mg daily to 60 mg BID approximately 10 days agoand has not noted any improvement in pain. [...] flowsheet data found. No flowsheet data found. [facility] ROS - 10/04/20 1322 General Change in [...] Blood pressure 147/69, pulse 69, height 5' 3, weight 50 kg (110 lb 4.8 oz). [...] Date: 10/04/2020. Comparison Study Date: n/a. Study Location:[place], [place] protocol used: yes. Scanner Strength: 3T, [...] Date: 10/04/2020. Comparison Study Date: n/a. Study Location:[place], [place] protocol used: yes. Scanner Strength: 3T, Image Quality: excellent. Findings: T2 bright lesions: no T1 giovana + lesions: no Cord atrophy: severe, noted at T10-T11 Significant DDD / HNP: no MRI Thoracic Spine Impression: Severe cord atrophy noted at T10-T11 with iron deposits. No abnormalcord signal or enhancement noted. IMPRESSIONS Aleena Andrea is a pleasant 70 y.o. female with history of Idiopathic Thoracic Transverse Myelitis who presents for follow up evaluation. Updated imaging of cervical spine is limited due to motionartifact, however appears unremarkable. MRI Thoracic spine demonstrates significant cord atrophy atT10, but otherwise demonstrates no abnormal cord signal or enhancement. Prior records were not ableto be obtained to review prior evaluation obtained [...] evaluate for potential etiology of transverse myelitis, includingNMO IgG and MOG IgG. PLAN RELATED TO [...] visit. 3. Please sign up for the [employer] patient portal. [facility] provides assess to your medical record and test results, allows you to communicate with your care providers, and allows you to complete patient questionnaires prior to each clinic visit. 4. When your testing is completed, your [place] care team will review all results and contact you if a finding requires follow up before your next visit. Otherwisee, we will discuss your test results [id number] at your next clinic visit. Many of your testing results, however, can be reviewed online through [employer]. PATIENT AND CAREGIVER EDUCATION I spent 30 [...] Neuroimmunology Fellow (PGY5) Neuroimmunology & Multiple Sclerosis [facility] [address], [place], [place] [email or web address] I have seen and examined patient [...] MPH System Chief Neuroimmunology & Multiple Sclerosis [facility] [address] [place] [address] Rd[address], [place], [place] [email or web address] Clinic documented in this [id number] Instructions* Patient Instructions* Analilia Oconnor DO - 09/10/2020 1:27 PM EDT Aleena Andrea is a pleasant 70 y.o. Right-handed female referred for evaluation of andtreatment recommendations for Idiopathic Thoracic Transverse Myelitis. I recommend the following plan: PLAN 1. We will request initial 2001 MRI imaging and neurology records from [facility]. 2. Given persistent pain despite multiple pharmacologic [...] visit. 3. Please sign up for the [employer] patient portal. [facility] gives you controlled access to the same [facility] medical records your [facility] care team use, via browser or mobile kaya (for iOS and Android). Its allows you to review some of your testing results, and provides you with a communication link to your care providers. 4. Many of your test results can be reviewed online at any time through [employer]. Your [place] care team will review all results, but will only contact you if a finding requires urgent medical attention. Your Care team will always discuss your test results with you [id number] at your next clinic. I spent 90 [...] Neuroimmunology Fellow (PGY5) Neuroimmunology & Multiple Sclerosis [facility] [address], [place], [place] [email or web address] documented in this [id number] History of Present illness Narrative* Analilia Oconnor DO - 09/10/2020 11:57 AM EDT [facility] NEW [facility] 09/10/2020 I had the pleasure of evaluating Aleena Andrea in initial outpatient neurologic consultation at [facility] today, 09/10/2020. As you know, she is a pleasant 70 y.o. Right-handed female referred by Dr. Beck for evaluation of and treatment recommendations for Tr ansverse Myelitis. She is accompanied today by her friend who helped participate in her history. Inpreparation for today's consultation I have personally reviewed hard copies of neuroimaging studies, relevant clinic notes and lab tests, as well as the [facility] [place] new patient questionnaire. Chief Complaint: Transverse Myelitis HISTORY History of Present Illness: Aleena reports that in July 2000, she had Lasik surgery on her eyes.When her woke her up, she felt flu like. She went back to bed and that evening her legs started hurting very bad. She was unable to get out of bed due to the pain. She ended up going to the ED at [facility] and states that within a couple [...] describes a constant 8/10 pain in her hipsdown her legs. She describes a strong tingling [...] UTIs. She does not follow with urology. HerPCP just started her on a prophylatic antibiotic, [...] (coronary artery disease), CHF (congestive heart failure) ([facility]), Depression, Idiopathic transverse myelitis (HCC), Migraine, Neurogenic [...] Blood pressure 129/74, pulse 62, height 5' 3, weight 50.9 kg (112 lb 4.8 oz). [...] On pupillary testing no R-APD detected. On Fundoscopy,bilateral discs are flat with normal color. CN [...] No truncal ataxia noted with sitting. Normal [id number]-[id number] and fine finger movements without evidence of appendicular dysmetria nor ataxia. No tremors or abnormal movements noted. GAIT: Non-ambulatory IMPRESSION Aleena Andrea is a pleasant 70 y.o. Right-handed female referred for evaluation of andtreatment recommendations for Idiopathic Thoracic Transverse Myelitis. Clinical [...] 2001 MRI imaging and neurology records from [facility]. 2. Given persistent pain despite multiple pharmacologic [...] visit. 3. Please sign up for the [employer] patient portal. [facility] gives you controlled access to the same [facility] medical records your [facility] care team use, via browser or mobile kaya (for iOS and Android). Its allows you to review some of your testing results, and provides you with a communication link to your care providers. 4. Many of your test results can be reviewed online at any time through [facility]. Your [place] care team will review all results, but will only contact you if a finding requires urgent medical attention. Your Care team will always discuss your test results with you [id number] at your next clinic. I spent 90 [...] Neuroimmunology Fellow (PGY5) Neuroimmunology & Multiple Sclerosis [facility] [address], [place], [place] [email or web address] Clinic I have seen and examined patient [...] MPH System Chief Neuroimmunology & Multiple Sclerosis [facility] [address] [place] [address] Rd[address], [place], [place] [email or web address] Clinic [facility]* Diagnosis Transverse myelitis (HCC)- Primary Other causes of myelitis Neuropathic pain Vitamin D deficiency [facility] Diagnosis Transverse myelitis (HCC) Other causes of myelitis [facility] Diagnosis Transverse myelitis (HCC)- Primary Other causes of myelitis Neuropathic pain Vitamin D deficiency Other specified disorders involving the immune mechanism, 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) [facility]* Diagnosis Neuropathic pain- Primary [facility] [place] Diagnosis Neuropathic pain- Primary [facility]* Diagnosis Neuropathic pain- Primary [facility] [place] [facility]* Diagnosis Neuropathic pain- Primary [facility]* Diagnosis Onset Date Resolution Status Pressure ulcer of coccygeal region, stage 3 acute Pressure ulcer of left foot, stage 3 acute Ulcer of left foot acute Anxiety and depression chron ic Central pain syndrome chroni c Chronic abdominal pain chron ic Chronic anemia chronic Chronic back pain chronic Chronic central neuropathic pain chronic Chronic constipation chronic Chronic venous insufficiency chronic Constipation chronic Muscle spasm chronic Neurogenic bladder chronic Neuropathic pain chronic Paraplegia chronic Self-catheterizes urinary bladder chronic Transverse myelitis chronic Urinary retention chronic Pressure ulcer of coccygeal region, stage 3 acute Pressure ulcer of left foot, stage 3 acute Ulcer of left foot acute Anxiety and depression chron ic Central pain syndrome chroni c Chronic abdominal pain chron ic Chronic central neuropathic pain chronic Chronic constipation chronic Constipation chronic Muscle spasm chronic Neurogenic bladder chronic Neuropathic pain chronic Paraplegia chronic Self-catheterizes urinary bladder chronic Transverse myelitis chronic Urinary retention chronic Pressure ulcer of coccygeal region, stage 3 acute Pressure ulcer of left foot, stage 3 acute Ulcer of left foot acute Anxiety chronic Anxiety and depression chron ic Central pain syndrome chroni c Chronic abdominal pain chron ic Chronic anemia chronic Chronic back pain chronic Chronic central neuropathic pain chronic Chronic constipation chronic Chronic venous insufficiency chronic Constipation chronic Depression chronic Muscle spasm chronic Neurogenic bladder chronic Neuropathic pain chronic Paraplegia chronic Self-catheterizes urinary bladder chronic Transverse myelitis chronic Urinary retention chronic Pressure ulcer of left foot, stage 3 acute Ulcer of left foot acute Anxiety and depression chron ic Central pain syndrome chroni c Chronic abdominal pain chron ic Chronic anemia chronic Chronic back pain chronic Chronic central neuropathic pain chronic Chronic constipation chronic Chronic venous insufficiency chronic Constipation chronic History fluid overload, systolic CHF chronic Muscle spasm chronic Neurogenic bladder chronic Neuropathic pain chronic Paraplegia chronic Self-catheterizes urinary bladder chronic Transverse myelitis chronic Urinary retention [facility] Work Phone: Evaluation note* Diagnosis Onset Date Resolution Status Pressure ulcer of coccygeal region, stage 3 acute Pressure ulcer of left foot, stage 3 acute Ulcer of left foot acute Anxiety and depression chron ic Central pain syndrome chroni c Chronic abdominal pain chron ic Chronic central neuropathic pain chronic Chronic constipation chronic Constipation chronic Muscle spasm chronic Neurogenic bladder chronic Neuropathic pain chronic Paraplegia chronic Self-catheterizes urinary bladder chronic Transverse myelitis chronic Urinary retention chronic Pressure ulcer of coccygeal region, stage 3 acute Pressure ulcer of left foot, stage 3 acute Ulcer of left foot acute Anxiety chronic Anxiety and depression chron ic Central pain syndrome chroni c Chronic abdominal pain chron ic Chronic anemia chronic Chronic back pain chronic Chronic central neuropathic pain chronic Chronic constipation chronic Chronic venous insufficiency chronic Constipation chronic Depression chronic Muscle spasm chronic Neurogenic bladder chronic Neuropathic pain chronic Paraplegia chronic Self-catheterizes urinary bladder chronic Transverse myelitis chronic Urinary retention chronic Pressure ulcer of left foot, stage 3 acute Ulcer of left foot acute Anxiety and depression chron ic Central pain syndrome chroni c Chronic abdominal pain chron ic Chronic anemia chronic Chronic back pain chronic Chronic central neuropathic pain chronic Chronic constipation chronic Chronic venous insufficiency chronic Constipation chronic History fluid overload, systolic CHF chronic Muscle spasm chronic Neurogenic bladder chronic Neuropathic pain chronic Paraplegia chronic Self-catheterizes urinary bladder chronic Transverse myelitis chronic Urinary retention chronic Pressure ulcer of left foot, stage 3 acute Ulcer of left foot acute Central pain syndrome chroni c Chronic abdominal pain chron ic Chronic back pain chronic Chronic central neuropathic pain chronic Chronic constipation chronic Chronic venous insufficiency chronic Constipation chronic Muscle spasm chronic Neurogenic bladder chronic Neuropathic pain chronic Paraplegia chronic Self-catheterizes urinary bladder chronic Transverse myelitis chronic Urinary retention [facility] Work Phone: Evaluation note* Diagnosis Onset Date Resolution Status Pressure ulcer of coccygeal region, stage 3 acute Pressure ulcer of left foot, stage 3 acute Ulcer of left foot acute Anxiety chronic Anxiety and depression chron ic Central pain syndrome chroni c Chronic abdominal pain chron ic Chronic anemia chronic Chronic back pain chronic Chronic central neuropathic pain chronic Chronic constipation chronic Chronic venous insufficiency chronic Constipation chronic Depression chronic Muscle spasm chronic Neurogenic bladder chronic Neuropathic pain chronic Paraplegia chronic Self-catheterizes urinary bladder chronic Transverse myelitis chronic Urinary retention chronic Pressure ulcer of left foot, stage 3 acute Ulcer of left foot acute Anxiety and depression chron ic Central pain syndrome chroni c Chronic abdominal pain chron ic Chronic anemia chronic Chronic back pain chronic Chronic central neuropathic pain chronic Chronic constipation chronic Chronic venous insufficiency chronic Constipation chronic History fluid overload, systolic CHF chronic Muscle spasm chronic Neurogenic bladder chronic Neuropathic pain chronic Paraplegia chronic Self-catheterizes urinary bladder chronic Transverse myelitis chronic Urinary retention chronic Pressure ulcer of left foot, stage 3 acute Ulcer of left foot acute Central pain syndrome chroni c Chronic abdominal pain chron ic Chronic back pain chronic Chronic central neuropathic pain chronic Chronic constipation chronic Chronic venous insufficiency chronic Constipation chronic Muscle spasm chronic Neurogenic bladder chronic Neuropathic pain chronic Paraplegia chronic Self-catheterizes urinary bladder chronic Transverse myelitis chronic Urinary retention chronic Pressure ulcer of left foot, stage 3 acute Ulcer of left foot acute Anxiety and depression chron ic Central pain syndrome chroni c Chronic abdominal pain chron ic Chronic back pain chronic Chronic central neuropathic pain chronic Chronic constipation chronic Constipation chronic Muscle spasm chronic Neurogenic bladder chronic Neuropathic pain chronic Paraplegia chronic Self-catheterizes urinary bladder chronic Transverse myelitis chronic Urinary retention [facility] Work Phone: Evaluation note* Diagnosis Onset Date Resolution Status Pressure ulcer of left foot, stage 3 acute Ulcer of left foot acute Anxiety and depression chron ic Central pain syndrome chroni c Chronic abdominal pain chron ic Chronic anemia chronic Chronic back pain chronic Chronic central neuropathic pain chronic Chronic constipation chronic Chronic venous insufficiency chronic Constipation chronic History fluid overload, systolic CHF chronic Muscle spasm chronic Neurogenic bladder chronic Neuropathic pain chronic Paraplegia chronic Self-catheterizes urinary bladder chronic Transverse myelitis chronic Urinary retention chronic Pressure ulcer of left foot, stage 3 acute Ulcer of left foot acute Central pain syndrome chroni c Chronic abdominal pain chron ic Chronic back pain chronic Chronic central neuropathic pain chronic Chronic constipation chronic Chronic venous insufficiency chronic Constipation chronic Muscle spasm chronic Neurogenic bladder chronic Neuropathic pain chronic Paraplegia chronic Self-catheterizes urinary bladder chronic Transverse myelitis chronic Urinary retention chronic Pressure ulcer of left foot, stage 3 acute Ulcer of left foot acute Anxiety and depression chron ic Central pain syndrome chroni c Chronic abdominal pain chron ic Chronic back pain chronic Chronic central neuropathic pain chronic Chronic constipation chronic Constipation chronic Muscle spasm chronic Neurogenic bladder chronic Neuropathic pain chronic Paraplegia chronic Self-catheterizes urinary bladder chronic Transverse myelitis chronic Urinary retention chronic [facility] Work Phone: Evaluation note* Diagnosis Onset Date Resolution Status Pressure ulcer of left foot, stage 3 acute Ulcer of left foot acute Anxiety and depression chron ic Central pain syndrome chroni c Chronic abdominal pain chron ic Chronic back pain chronic Chronic central neuropathic pain chronic Chronic constipation chronic Constipation chronic Muscle spasm chronic Neurogenic bladder chronic Neuropathic pain chronic Paraplegia chronic Self-catheterizes urinary bladder chronic Transverse myelitis chronic Urinary retention chronic Pressure ulcer of coccygeal region, stage 3 acute Central pain syndrome chroni c Chronic abdominal pain chron ic Chronic back pain chronic Chronic central neuropathic pain chronic Chronic constipation chronic Constipation chronic Muscle spasm chronic Neurogenic bladder chronic Neuropathic pain chronic Paraplegia chronic Self-catheterizes urinary bladder chronic Transverse myelitis chronic Urinary retention [facility] Work Phone: Evaluation note* Diagnosis Onset Date Resolution Status Anxiety and depression chron ic Chronic back pain chronic Chronic constipation chronic Neurogenic bladder chronic Paraplegia chronic Chronic back pain chronic Chronic constipation chronic Neurogenic bladder chronic Paraplegia chronic Iron (Fe) deficiency anemia acute Chronic constipation chronic GI bleed [facility] Work Phone: Evaluation note* Diagnosis Onset Date Resolution Status Anxiety and depression chron ic Chronic back pain chronic Chronic constipation chronic Neurogenic bladder chronic Paraplegia chronic Chronic back pain chronic Chronic constipation chronic Neurogenic bladder chronic Paraplegia chronic Chronic constipation chronic Iron deficiency anemia due to chronic blood loss [facility] Work Phone: Evaluation note* Diagnosis Onset Date Resolution Status Chronic back pain chronic Chronic constipation chronic Neurogenic bladder chronic Paraplegia chronic Chronic constipation chronic Iron deficiency anemia due to chronic blood loss chronic Iron deficiency anemia due to chronic blood loss [facility] Work Phone: Evaluation note* Diagnosis Onset Date Resolution Status Iron deficiency anemia due to chronic blood loss chronic Intestinal ulcer acute Chronic constipation chronic Iron deficiency anemia due to chronic blood loss [facility] Work Phone: Evaluation note* Diagnosis Onset Date Resolution Status Iron deficiency anemia due to chronic blood loss chronic Chronic constipation chronic Intestinal ulcer [facility] Work Phone: Evaluation note* Diagnosis Onset Date Resolution Status Iron deficiency anemia due to chronic blood loss [facility] Work Phone: Reason for referral (narrative)No reason for referral information [facility]: Instructions Name Dates Details How to access [...] myelitis Start:16-Mar-2020 Instruction Type:Provider Instructions for Treatment Reason for Referral Status Reason Specialty Diagnoses / Procedures Referred By Contact Referred To Contact Authorized Neurology Diagnoses Transverse myelitis (HCC) Paraplegia (HCC) Cara Beck DO [address] [place] [address] Gi Frances MD [address] [place] [address] Status Reason Specialty Diagnoses / Procedures Referred By Contact Referred To Contact Authorized Radiology Diagnoses Transverse myelitis (HCC) Procedures MR Thoracic Spine With And Without Contrast Gi Frances MD [address] [place] [address] Status Reason Specialty Diagnoses / Procedures Referred By Contact Referred To Contact Authorized Radiology Diagnoses Transverse myelitis (HCC) Procedures MR Cervical Spine With And Without Contrast Gi Frances MD [address] [place] [address] Status Reason Specialty Diagnoses / Procedures Referred By Contact Referred To Contact Closed Radiology Diagnoses Transverse myelitis (HCC) Procedures MR Cervical Spine With And Without Contrast Gi Frances MD [address] [place] [address] Assessments Diagnosis Transverse myelitis (HCC)- Primary Other causes of myelitis Paraplegia (HCC) Paraplegia Advance Directives No Advanced Directives Records Found Date Activated Date Inactivated Comments 04/14/2024 5:13 AM 04/22/2024 9:56 PM Question Answer Comments Full Code Order Discussed With: Patient Documents on File Type Date Recorded Patient Cheese Production Supervisor Expl anation Advance Directives and Living Will Documents on File Type Date Recorded Patient Cheese Production Supervisor Expl anation Advance Directives and Living Will Documents on File Type Date Recorded Patient Cheese Production Supervisor Expl anation Advance Directives and Livin g Will 10/04/2020 7:42 AM Documents on File Type Date Recorded Patient Cheese Production Supervisor Expl anation Advance Directives and Livin g Will 10/04/2020 7:42 AM Advance Directive Response Recorded Date/ Time Advance Directives Yes April 12:39pm Living Will Yes June 19 9:07am Power of Instrumentation Supervisor Yes June 19, 2021 9:07am Advance Directive Response Recorded Date/ Time Advance Directives Yes April 12:39pm Living Will No December 26 11:54am Power of Instrumentation Supervisor No December 26 11:54am Advance Directive Response Recorded Date/ Time Advance Directives Yes December 27, 2021 9:14am Living Will No December 27 9:14am Power of Instrumentation Supervisor No December 27 9:14am Advance Directive Response Recorded Date/ Time Advance Directives Yes January 3:45pm Living Will No January 09 3:45pm Power of Instrumentation Supervisor No January 09, 2022 3:45pm Advance Directive Response Recorded Date/ Time Advance Directives Yes December 27, 2021 9:14am Living Will No March 03 12:22pm Power of Instrumentation Supervisor No March 03, 2022 12:22pm Advance Directive Response Recorded Date/ Time Advance Directives Yes December 27, 2021 8:14am Living Will No March 03 11:22am Power of Instrumentation Supervisor No March 03, 2022 11:22am Advance Directive Response Recorded Date/ Time Name of Medical Power of Instrumentation Supervisor MERLINE CERON March 19, 2023 9:22am Advance Directives Yes December 27, 2021 8:14am Living Will Yes November 16th, 2 023 9:22am Power of Instrumentation Supervisor Yes March 19, 2023 9:22am Date Activated Date Inactivated Comments 04/14/2024 5:13 AM Advance Directive Response Recorded Date/ Time Living Will Yes March 19, 023 10:22am Do you have a Healthcare Power of Instrumentation Supervisor? Yes March 19, 2023 10:22am Living Will Yes January 04 024 3:03pm Do you have a Healthcare Power of Instrumentation Supervisor? Yes January 05, 2024 3:03pm Living Will Yes June 04 2:56am Do you have a Healthcare Power of Instrumentation Supervisor? Yes June 04, 2024 2:56am Living Will Yes July 02, 2024 2:12am Do you have a Healthcare Power of Instrumentation Supervisor? Yes July 02, 2024 2:12am Living Will Yes August 02, 2024 12:45am Do you have a Healthcare Power of Instrumentation Supervisor? Yes August 02, 2024 12:45am Living Will Yes September 01, 2024 12 :36am Do you have a Healthcare Power of Instrumentation Supervisor? Yes September 01, 2024 12:36am Advance Directives Yes December 27, 2021 9:14am Advance Directive Response Recorded Date/ Time Living Will Yes March 19 10:22am Do you have a Healthcare Power of Instrumentation Supervisor? Yes March 19, 2023 10:22am Living Will Yes January 04 3:03pm Do you have a Healthcare Power of Instrumentation Supervisor? Yes January 05, 2024 3:03pm Living Will Yes July 02, 2024 2:12am Do you have a Healthcare Power of Instrumentation Supervisor? Yes July 02, 2024 2:12am Living Will Yes August 02, 2024 12:45am Do you have a Healthcare Power of Instrumentation Supervisor? Yes August 02, 2024 12:45am Living Will Yes September 01, 2024 12 :36am Do you have a Healthcare Power of Instrumentation Supervisor? Yes September 01, 2024 12:36am Living Will Yes October 02, 2024 1 2:38am Do you have a Healthcare Power of Instrumentation Supervisor? Yes October 02, 2024 12:38am Advance Directives Yes December 27, 2021 9:14am Advance Directive Response Recorded Date/ Time Living Will Yes September 01, 2024 12 :36am Do you have a Healthcare Power of Instrumentation Supervisor? Yes September 01, 2024 12:36am Living Will Yes October 02, 2024 1 2:38am Do you have a Healthcare Power of Instrumentation Supervisor? Yes October 02, 2024 12:38am Advance Directives Yes December 27, 2021 9:14am Summary Purpose Family History No Family History Records Found Relationship Condition Age at Onset Recorded Date/T corky Not Specified Malignant neoplasm Unknown Hypertension Unknown father Malignant neoplasm of colon Unknown Chief Complaint and Reason for Visit Chief Complaint WOUND BUTTOCK HIP DEFORMITY WOUND BUTTOCK screening Pt. is not a diagnostic but needed this WOUND BUTTOCK INSERTION SPINAL CORD STIMULATOR TRIAL X 2 LEADS WOUND BUTTOCK WOUND BUTTOCK Reason for Visit Pressure ulcer of co ccygeal region, stage 3 Pressure ulcer of left foot, stage 3 Ulcer of left foot Anxiety and depression Central pain syndrome Chronic abdominal pain Chronic anemia Chronic back pain Chronic central neuropathic pain Chronic constipation Chronic venous insufficiency Constipation Muscle spasm Neurogenic bladder Neuropathic pain Paraplegia Self-catheterizes urinary bladder Transverse myelitis Urinary retention Pressure ulcer of coccygeal region, stage 3 Pressure ulcer of left foot, stage 3 Ulcer of left foot Anxiety and depression Central pain syndrome Chronic abdominal pain Chronic central neuropathic pain Chronic constipation Constipation Muscle spasm Neurogenic bladder Neuropathic pain Paraplegia Self-catheterizes urinary bladder Transverse myelitis Urinary retention Pressure ulcer of coccygeal region, stage 3 Pressure ulcer of left foot, stage 3 Ulcer of left foot Anxiety Anxiety and depression Central pain syndrome Chronic abdominal pain Chronic anemia Chronic back pain Chronic central neuropathic pain Chronic constipation Chronic venous insufficiency Constipation Depression Muscle spasm Neurogenic bladder Neuropathic pain Paraplegia Self-catheterizes urinary bladder Transverse myelitis Urinary retention Pressure ulcer of left foot, stage 3 Ulcer of left foot Anxiety and depression Central pain syndrome Chronic abdominal pain Chronic anemia Chronic back pain Chronic central neuropathic pain Chronic constipation Chronic venous insufficiency Constipation History fluid overload, systolic CHF Muscle spasm Neurogenic bladder Neuropathic pain Paraplegia Self-catheterizes urinary bladder Transverse myelitis Urinary retention Chief Complaint HIP DEFORMITY WOUND BUTTOCK screening Pt. is not a diagnostic but needed this WOUND BUTTOCK INSERTION SPINAL CORD STIMULATOR TRIAL X 2 LEADS WOUND BUTTOCK WOUND BUTTOCK WOUND BUTTOCK Reason for Visit Pressure ulcer of co ccygeal region, stage 3 Pressure ulcer of left foot, stage 3 Ulcer of left foot Anxiety and depression Central pain syndrome Chronic abdominal pain Chronic central neuropathic pain Chronic constipation Constipation Muscle spasm Neurogenic bladder Neuropathic pain Paraplegia Self-catheterizes urinary bladder Transverse myelitis Urinary retention Pressure ulcer of coccygeal region, stage 3 Pressure ulcer of left foot, stage 3 Ulcer of left foot Anxiety Anxiety and depression Central pain syndrome Chronic abdominal pain Chronic anemia Chronic back pain Chronic central neuropathic pain Chronic constipation Chronic venous insufficiency Constipation Depression Muscle spasm Neurogenic bladder Neuropathic pain Paraplegia Self-catheterizes urinary bladder Transverse myelitis Urinary retention Pressure ulcer of left foot, stage 3 Ulcer of left foot Anxiety and depression Central pain syndrome Chronic abdominal pain Chronic anemia Chronic back pain Chronic central neuropathic pain Chronic constipation Chronic venous insufficiency Constipation History fluid overload, systolic CHF Muscle spasm Neurogenic bladder Neuropathic pain Paraplegia Self-catheterizes urinary bladder Transverse myelitis Urinary retention Pressure ulcer of left foot, stage 3 Ulcer of left foot Central pain syndrome Chronic abdominal pain Chronic back pain Chronic central neuropathic pain Chronic constipation Chronic venous insufficiency Constipation Muscle spasm Neurogenic bladder Neuropathic pain Paraplegia Self-catheterizes urinary bladder Transverse myelitis Urinary retention Chief Complaint INSERTION SPINAL COR D STIMULATOR TRIAL X 2 LEADS WOUND BUTTOCK WOUND BUTTOCK WOUND BUTTOCK WOUND BUTTOCK Reason for Visit Pressure ulcer of co ccygeal region, stage 3 Pressure ulcer of left foot, stage 3 Ulcer of left foot Anxiety Anxiety and depression Central pain syndrome Chronic abdominal pain Chronic anemia Chronic back pain Chronic central neuropathic pain Chronic constipation Chronic venous insufficiency Constipation Depression Muscle spasm Neurogenic bladder Neuropathic pain Paraplegia Self-catheterizes urinary bladder Transverse myelitis Urinary retention Pressure ulcer of left foot, stage 3 Ulcer of left foot Anxiety and depression Central pain syndrome Chronic abdominal pain Chronic anemia Chronic back pain Chronic central neuropathic pain Chronic constipation Chronic venous insufficiency Constipation History fluid overload, systolic CHF Muscle spasm Neurogenic bladder Neuropathic pain Paraplegia Self-catheterizes urinary bladder Transverse myelitis Urinary retention Pressure ulcer of left foot, stage 3 Ulcer of left foot Central pain syndrome Chronic abdominal pain Chronic back pain Chronic central neuropathic pain Chronic constipation Chronic venous insufficiency Constipation Muscle spasm Neurogenic bladder Neuropathic pain Paraplegia Self-catheterizes urinary bladder Transverse myelitis Urinary retention Pressure ulcer of left foot, stage 3 Ulcer of left foot Anxiety and depression Central pain syndrome Chronic abdominal pain Chronic back pain Chronic central neuropathic pain Chronic constipation Constipation Muscle spasm Neurogenic bladder Neuropathic pain Paraplegia Self-catheterizes urinary bladder Transverse myelitis Urinary retention Chief Complaint WOUND BUTTOCK WOUND BUTTOCK WOUND BUTTOCK Reason for Visit Pressure ulcer of le ft foot, stage 3 Ulcer of left foot Anxiety and depression Central pain syndrome Chronic abdominal pain Chronic anemia Chronic back pain Chronic central neuropathic pain Chronic constipation Chronic venous insufficiency Constipation History fluid overload, systolic CHF Muscle spasm Neurogenic bladder Neuropathic pain Paraplegia Self-catheterizes urinary bladder Transverse myelitis Urinary retention Pressure ulcer of left foot, stage 3 Ulcer of left foot Central pain syndrome Chronic abdominal pain Chronic back pain Chronic central neuropathic pain Chronic constipation Chronic venous insufficiency Constipation Muscle spasm Neurogenic bladder Neuropathic pain Paraplegia Self-catheterizes urinary bladder Transverse myelitis Urinary retention Pressure ulcer of left foot, stage 3 Ulcer of left foot Anxiety and depression Central pain syndrome Chronic abdominal pain Chronic back pain Chronic central neuropathic pain Chronic constipation Constipation Muscle spasm Neurogenic bladder Neuropathic pain Paraplegia Self-catheterizes urinary bladder Transverse myelitis Urinary retention Chief Complaint WOUND BUTTOCK WOUND BUTTOCK LOW HEMAGLOBIN Reason for Visit Pressure ulcer of le ft foot, stage 3 Ulcer of left foot Anxiety and depression Central pain syndrome Chronic abdominal pain Chronic back pain Chronic central neuropathic pain Chronic constipation Constipation Muscle spasm Neurogenic bladder Neuropathic pain Paraplegia Self-catheterizes urinary bladder Transverse myelitis Urinary retention Pressure ulcer of coccygeal region, stage 3 Central pain syndrome Chronic abdominal pain Chronic back pain Chronic central neuropathic pain Chronic constipation Constipation Muscle spasm Neurogenic bladder Neuropathic pain Paraplegia Self-catheterizes urinary bladder Transverse myelitis Urinary retention Chief Complaint WOUND BUTTOCK WOUND BUTTOCK LOW HEMAGLOBIN GI BLEED EORDER Reason for Visit Anxiety and depressi on Chronic back pain Chronic constipation Neurogenic bladder Paraplegia Chronic back pain Chronic constipation Neurogenic bladder Paraplegia Iron (Fe) deficiency anemia Chronic constipation GI bleed Chief Complaint WOUND BUTTOCK WOUND BUTTOCK LOW HEMAGLOBIN GI BLEED EORDER GIB NEW PT - ANEMIA Reason for Visit Anxiety and depressi on Chronic back pain Chronic constipation Neurogenic bladder Paraplegia Chronic back pain Chronic constipation Neurogenic bladder Paraplegia Chronic constipation Iron deficiency anemia due to chronic blood loss Chief Complaint WOUND BUTTOCK LOW HEMAGLOBIN GI BLEED EORDER GIB NEW PT - ANEMIA 1 MO - LABS 1 MO - LABS OSTEO Reason for Visit Chronic back pain Chronic constipation Neurogenic bladder Paraplegia Chronic constipation Iron deficiency anemia due to chronic blood loss Iron deficiency anemia due to chronic blood loss Chief Complaint 1 MO - LABS OSTEO 2 MO FU 1 MO - LABS 3MO LABS SCREENING Reason for Visit Iron deficiency anem ia due to chronic blood loss Intestinal ulcer Chronic constipation Iron deficiency anemia due to chronic blood loss Chief Complaint 1 MO - LABS 3MO LABS SCREENING E ORDER 3 MO FU Reason for Visit Iron deficiency anem ia due to chronic blood loss Chronic constipation Intestinal ulcer Chief Complaint 3 MO - LABS 1 MO - LABS SCREENING BILATERAL KNEE PAIN Reason for Visit Iron deficiency anem ia due to chronic blood loss Chief Complaint Admit Date wound June 08, 2024 1 1:52am LAB WORK June 09, 2024 5 :00am FOLLOW UP VISIT June 14, 2024 7:10pm wound June 15, 2024 4:49pm LAB WORK June 16, 2024 5:00am wound June 22, 2024 10:21am LAB WORK June 23, 2024 5:00am wound June 29, 2024 8:30am wound June 29, 2024 10:10am LAB WORK June 30, 2024 4:00am 6 MO - LABS July 05, 2024 1:32 pm 1 MO - LABS July 05, 2024 1:45 pm wound July 06, 2024 3:08 pm LAB WORK July 07, 2024 4:00 am OSTEOPOROSIS July 12, 2024 1:5 0pm wound July 13, 2024 11: 24am LAB WORK July 14, 2024 5:0 0am wound July 18, 2024 4:1 6pm DISCHARGE H&P PHYSICAL July 20, 2024 12:21pm LAB WORK July 21, 2024 5:0 0am wound July 27, 2024 8:3 0am wound July 27, 2024 9:5 0am wound August 03, 2024 11:1 8am wound August 10, 2024 12:3 3pm wound August 17, 2024 12: 16pm wound August 24, 2024 11: 50am wound August 31, 2024 10: 15am wound August 31, 2024 11: 18am wound September 07, 2024 12:39p m wound September 14, 2024 11:58 am wound September 21, 2024 12:01 pm wound September 28, 2024 10:30 am wound September 28, 2024 12:25 pm Reason for Visit Admit Date Decubitus ulcer of left buttock, stage 2 June 29, 2024 8:30am Decubitus ulcer of right buttock, stage 4 June 29, 2024 8:30am Decubitus ulcer of sacral region, stage 2 June 29, 2024 8:30am Decubitus ulcer of toe, stage 2 June 29, 2024 8:30am Malnutrition June 29, 2024 8:30am Wound infection June 29, 2024 8:30am Chronic anemia June 29, 2024 8:30am Iron deficiency anemia due to chronic bl ood loss July 05, 2024 1:32pm BiPAP (biphasic positive airway pressure ) dependence July 27, 2024 8:30am Decubitus ulcer of left buttock, stage 2 July 27, 2024 8:30am Decubitus ulcer of left ischium, stage 2 July 27, 2024 8:30am Decubitus ulcer of right buttock, stage 4 July 27, 2024 8:30am Decubitus ulcer of sacral region, stage 2 July 27, 2024 8:30am Decubitus ulcer of toe, stage 2 July 272024 8:30am Malnutrition July 27, 2024 8:3 0am Pressure ulcer of ischium, stage 2 July 27, 2024 8:30am Pressure ulcer of ischium, stage 3 July 27, 2024 8:30am Skin ulcer of left great toe July 27, 2024 8:30am Transverse myelitis July 27, 2024 8:3 0am Ulcer of anus July 27, 2024 8:3 0am Wound infection July 27, 2024 8:3 0am Chronic anemia July 27, 2024 8:3 0am Paraplegia July 27, 2024 8:3 0am Decubitus ulcer of left ischium, stage 2 August 31, 2024 10:15am Decubitus ulcer of right buttock, stage 4 August 31, 2024 10:15am Decubitus ulcer of sacral region, stage 2 August 31, 2024 10:15am Decubitus ulcer of toe, stage 2 August [id number] 10:15am Skin ulcer of left great toe August 31, 2024 10:15am Ulcer of anus August 31, 2024 10: 15am Chronic anemia August 31, 2024 10: 15am Decubitus ulcer of left ischium, stage 2 September 28, 2024 10:30am Decubitus ulcer of right buttock, stage 4 September 28, 2024 10:30am Decubitus ulcer of sacral region, stage 2 September 28, 2024 10:30am Decubitus ulcer of toe, stage 2 September 10:30am Skin ulcer of left great toe September 28, 2 025 10:30am Ulcer of anus September 28, 2024 10:30 am Chronic anemia September 28, 2024 10:30 am Non-pressure chronic ulcer of buttock Ma y 2024 10:30am Chief Complaint Admit Date 6 MO - LABS July 05, 2024 1:32 pm 1 MO - LABS July 05, 2024 1:45 pm wound July 06, 2024 3:08 pm LAB WORK July 07, 2024 4:00 am OSTEOPOROSIS July 12, 2024 1:5 0pm wound July 13, 2024 11: 24am LAB WORK July 14, 2024 5:0 0am wound July 18, 2024 4:1 6pm DISCHARGE H&P PHYSICAL July 20, 2024 12:21pm LAB WORK July 21, 2024 5:0 0am wound July 27, 2024 8:3 0am wound July 27, 2024 9:5 0am wound August 03, 2024 11:1 8am wound August 10, 2024 12:3 3pm wound August 17, 2024 12: 16pm wound August 24, 2024 11: 50am wound August 31, 2024 10: 15am wound August 31, 2024 11: 18am wound September 07, 2024 12:39p m wound September 14, 2024 11:58 am wound September 21, 2024 12:01 pm wound September 28, 2024 10:30 am wound September 28, 2024 12:25 pm wound October 05, 2024 11:47 am wound October 12, 2024 10:3 0am wound October 12, 2024 11:3 1am Reason for Visit Admit Date Iron deficiency anemia due to chronic bl ood loss July 05, 2024 1:32pm BiPAP (biphasic positive airway pressure ) dependence July 27, 2024 8:30am Decubitus ulcer of left buttock, stage 2 July 27, 2024 8:30am Decubitus ulcer of left ischium, stage 2 July 27, 2024 8:30am Decubitus ulcer of right buttock, stage 4 July 27, 2024 8:30am Decubitus ulcer of sacral region, stage 2 July 27, 2024 8:30am Decubitus ulcer of toe, stage 2 July 272024 8:30am Malnutrition July 27, 2024 8:3 0am Pressure ulcer of ischium, stage 2 July 27, 2024 8:30am Pressure ulcer of ischium, stage 3 July 27, 2024 8:30am Skin ulcer of left great toe July 27, 2024 8:30am Transverse myelitis July 27, 2024 8:3 0am Ulcer of anus July 27, 2024 8:3 0am Wound infection July 27, 2024 8:3 0am Chronic anemia July 27, 2024 8:3 0am Paraplegia July 27, 2024 8:3 0am Decubitus ulcer of left ischium, stage 2 August 31, 2024 10:15am Decubitus ulcer of right buttock, stage 4 August 31, 2024 10:15am Decubitus ulcer of sacral region, stage 2 August 31, 2024 10:15am Decubitus ulcer of toe, stage 2 August 312024 10:15am Skin ulcer of left great toe August 31, 2024 10:15am Ulcer of anus August 31, 2024 10: 15am Chronic anemia August 31, 2024 10: 15am Decubitus ulcer of left ischium, stage 2 September 28, 2024 10:30am Decubitus ulcer of right buttock, stage 4 September 28, 2024 10:30am Decubitus ulcer of sacral region, stage 2 September 28, 2024 10:30am Decubitus ulcer of toe, stage 2 September 10:30am Skin ulcer of left great toe September 28, 2 025 10:30am Ulcer of anus September 28, 2024 10:30 am Chronic anemia September 28, 2024 10:30 am Non-pressure chronic ulcer of buttock Ma y 2024 10:30am Decubitus ulcer of left ischium, stage 2 October 12, 2024 10:30am Decubitus ulcer of right buttock, stage 4 October 12, 2024 10:30am Decubitus ulcer of sacral region, stage 2 October 12, 2024 10:30am Decubitus ulcer of toe, stage 2 October 10:30am Skin ulcer of left great toe October 12, 2024 10:30am Ulcer of anus October 12, 2024 10:3 0am Chronic anemia October 12, 2024 10:3 0am Non-pressure chronic ulcer of buttock Ju ne 2024 10:30am Chief Complaint Admit Date wound September 07, 2024 12:39p m wound September 14, 2024 11:58 am wound September 21, 2024 12:01 pm wound September 28, 2024 10:30 am wound September 28, 2024 12:25 pm wound October 05, 2024 11:47 am wound October 12, 2024 10:3 0am wound October 12, 2024 11:3 1am EORDERS December 27, 2024 11 :24am Reason for Visit Admit Date Decubitus ulcer of left ischium, stage 2 September 28, 2024 10:30am Decubitus ulcer of right buttock, stage 4 September 28, 2024 10:30am Decubitus ulcer of sacral region, stage 2 September 28, 2024 10:30am Decubitus ulcer of toe, stage 2 September 10:30am Skin ulcer of left great toe September 28, 2 025 10:30am Ulcer of anus September 28, 2024 10:30 am Chronic anemia September 28, 2024 10:30 am Non-pressure chronic ulcer of buttock Ma y 2024 10:30am Decubitus ulcer of left ischium, stage 2 October 12, 2024 10:30am Decubitus ulcer of right buttock, stage 4 October 12, 2024 10:30am Decubitus ulcer of sacral region, stage 2 October 12, 2024 10:30am Decubitus ulcer of toe, stage 2 October 10:30am Skin ulcer of left great toe October 12, 2024 10:30am Ulcer of anus October 12, 2024 10:3 0am Chronic anemia October 12, 2024 10:3 0am Non-pressure chronic ulcer of buttock Ju ne 2024 10:30am Chief Complaint Admit Date wound September 21, 2024 12:01 pm wound September 28, 2024 10:30 am wound September 28, 2024 12:25 pm wound October 05, 2024 11:47 am wound October 12, 2024 10:3 0am wound October 12, 2024 11:3 1am EORDERS December 27, 2024 11 :24am Injection, Hip January 16, 2025 10:30am Additional Source Comments Reason for Visit (unrecogniz ed section and content) Status Reason Specialty Diagnoses / Procedures Referred By Contact Referred To Contact Closed Neurology Diagnoses Transverse myelitis (HCC) Paraplegia (HCC) Kiran, Cara DavidsonDO [address] [place] [id number] Gi Frances MD [address] [place] [address] [place] [address] Status Reason Specialty Diagnoses / Procedures Referred By Contact Referred To Contact Closed Radiology Diagnoses Transverse myelitis (HCC) Procedures MR Cervical Spine With And Without Contrast Gi Frances MD [address] [place] [id number] [place] [address] Reason Onset Date Comments Medication Refill 03/18/2021 Reason Comments CoPat Start Reason Comments Results Reason Comments CoPat Management Reason Comments CoPat Stop Care Teams (unrecognized sec tion and content) Outcomes Manager Relationship Specialty Start Date End Date Kiran Cara DO Stuart [address] [place] [id number] PCP - General Family Medicine 09/10/20 Outcomes Manager Relationship Specialty Start Date End Date Cara Beck DO [address] [place] [id number] PCP - General Family Medicine 09/10/20 Outcomes Manager Relationship Specialty Start Date End Date Cara Beck DO [address] [place] [id number] PCP - General Family Medicine 09/10/20 Outcomes Manager Relationship Specialty Start Date End Date Cara Beck DO [address] [place] [id number] PCP - General Family Medicine 09/10/20 Team Status: Active Member Role Status Dates Dr. Cara Arce MD Family Provider Active Dr. Casie Trevizo MD Primary Care Provider Active Team Status: Inactive Member Role Status Dates Dr. Cara Arce MD Referring Provider Active Dr. Stef Ewing DO Attending Provider Active Dr. Casie Trevizo MD Primary Care Provider Active Team Status: Inactive Member Role Status Dates Dr. Cara Arce MD Primary Care Provider, Referrin g Provider Active Dr. Fransisca Orlando MD Attending Provider Active Team Status: Inactive Member Role Status Dates Dr. Fransisca Orlando MD Attending Provider Active Dr. Casie Trevizo MD Primary Care Provider, Referrin g Provider Active Team Status: Active Member Role Status Dates Dr. Stef Ewing DO Attending Provider, Other Prov ider Active Dr. Casie Trevizo MD Primary Care Provider, Referrin g Provider Active Team Status: Inactive Member Role Status Dates Dr. Stef Ewing DO Attending Provider Active Dr. Casie Trevizo MD Primary Care Provider, Referrin g Provider Active Team Status: Active Member Role Status Dates Dr. Cara Arce MD Primary Care Provider Active Dr. Fransisca Orlando MD Attending Provider, Referrin g Provider Active Team Status: Inactive Member Role Status Dates Dr. Casie Trevizo MD Primary Care Prov ider, Attending Provider, Referring Provider Active Team Status: Inactive Member Role Status Dates Dr. Casie Trevizo MD Primary Care Provider Active DOMENIC WARNER NP-C Attending Provider Active Team Status: Active Member Role Status Dates Dr. Cara Arce MD Family Provider Active [facility] Primary Care Provider A ctive Team Status: Inactive Member Role Status Dates Dr. Casie Trevizo MD Referring Provider Active Dr. Stef Ewing DO Attending Provider Active Cara PALM MD Primary Care Provider Active Team Status: Inactive Member Role Status Dates Cara PALM MD Primary Care Provider Active Dr. Stef Ewing DO Attending Provider Active Team Status: Inactive Member Role Status Dates [facility] Primary Care Provider A ctive Dr. Casie Trevizo MD Attending Provider, Referring P dominique Active Team Status: Active Member Role Status Dates [facility] Primary Care Provider A ctive Ingrid Grimaldo NP, DATA SECURITY CONSULTANT-C Attending Provider, Referrin g Provider Active Team Status: Inactive Member Role Status Dates Dr. Casie Trevizo MD Primary Care Provider, Referrin g Provider Active Dr. Fransisca Orlando MD Attending Provider Active Team Status: Active Member Role Status Dates Dr. Fransisca Orlando MD Attending Provider, Referrin g Provider Active Dr. Casie Trevizo MD Primary Care Provider Active Team Status: Inactive Member Role Status Dates Dr. Casie Trevizo MD Primary Care Provider Active Dr. Star Corona MD Attending Provider, Referring Provider Active Outcomes Manager Relationship Specialty Start Date End Date Cara Arce MD [address] [place] [address] PCP - General 03/06/01 Outcomes Manager Relationship Specialty Start Date End Date Cara Arce MD [address] [place] [address] PCP - General 03/06/01 Outcomes Manager Relationship Specialty Start Date End Date Cara Arce MD [address] [place] [address] PCP - General 03/06/01 Outcomes Manager Relationship Specialty Start Date End Date Cara Arce MD [address], [place] [id number] PCP - General 03/06/01 Team Status: Active Member Role Status Dates Dr. Casie Trevizo MD Primary Care Provider Active Team Status: Active Member Role Status Dates Dr. Casie Trevizo MD Primary Care Provider Active Start: June 08, 2024 Dr. Casie Trevizo MD Referring Provider Active Start: June 08, 2024 Evelyn Robertson DATA SECURITY CONSULTANT, DATA SECURITY CONSULTANT-C Attending Provider Active Start: June 08, 2024 Evelyn Robertson DATA SECURITY CONSULTANT, DATA SECURITY CONSULTANT-C Other Provider Active S tart: June 08, 2024 Team Status: Active Member Role Status Dates Dr. Casie Trevizo MD Primary Care Provider Active Start: June 09, 2024 Sukumar PALM MD Attending Provider Active Start: June 09, 2024 Team Status: Inactive Member Role Status Dates Dr. Casie Trevizo MD Primary Care Provider Active Start: June 14, 2024 End: June 14, 2024 Dr. Sukumar Velazquez MD Attending Provider Active Start: June 14, 2024 End: June 14, 2024 Team Status: Active Member Role Status Dates Dr. Casie Trevizo MD Primary Care Provider Active Start: June 15, 2024 Evelyn Robertson DATA SECURITY CONSULTANT, DATA SECURITY CONSULTANT-C Other Provider Active S tart: June 15, 2024 Brooke Pool DATA SECURITY CONSULTANT, DATA SECURITY CONSULTANT-C Attending Provider Active Start: June 15, 2024 Brooke Pool DATA SECURITY CONSULTANT, DATA SECURITY CONSULTANT-C Referring Provider Active Start: June 15, 2024 Team Status: Active Member Role Status Dates Dr. Casie Trevizo MD Primary Care Provider Active Start: June 16, 2024 Sukumar PALM MD Attending Provider Active Start: June 16, 2024 Team Status: Active Member Role Status Dates Dr. Casie Trevizo MD Primary Care Provider Active Start: June 22, 2024 Dr. Casie Trevizo MD Referring Provider Active Start: June 22, 2024 Evelyn Robertson DATA SECURITY CONSULTANT, DATA SECURITY CONSULTANT-C Attending Provider Active Start: June 22, 2024 Evelyn Robertson DATA SECURITY CONSULTANT, DATA SECURITY CONSULTANT-C Other Provider Active S tart: June 22, 2024 Team Status: Active Member Role Status Dates Dr. Casie Trevizo MD Primary Care Provider Active Start: June 23, 2024 Sukumar PALM MD Attending Provider Active Start: June 23, 2024 Team Status: Inactive Member Role Status Dates Dr. Casie Trevizo MD Primary Care Provider Active Start: June 29, 2024 End: July 01, 2024 Dr. Casie Trevizo MD Referring Provider Active Start: June 29, 2024 End: July 01, 2024 Evelyn Robertson DATA SECURITY CONSULTANT, DATA SECURITY CONSULTANT-C Attending Provider Active Start: June 29, 2024 End: July 01, 2024 Team Status: Active Member Role Status Dates Dr. Casie Trevizo MD Primary Care Provider Active Start: June 29, 2024 Dr. Casie Trevizo MD Referring Provider Active Start: June 29, 2024 Evelyn Robertson DATA SECURITY CONSULTANT, DATA SECURITY CONSULTANT-C Attending Provider Active Start: June 29, 2024 Evelyn Robertson DATA SECURITY CONSULTANT, DATA SECURITY CONSULTANT-C Other Provider Active S tart: June 29, 2024 Team Status: Active Member Role Status Dates Dr. Casie Trevizo MD Primary Care Provider Active Start: June 30, 2024 Sukumar PALM MD Attending Provider Active Start: June 30, 2024 Sukumar PALM MD Referring Provider Active Start: June 30, 2024 Team Status: Inactive Member Role Status Dates Dr. Casie Trevizo MD Primary Care Provider Active Start: July 05, 2024 End: July 05, 2024 Dr. Casie Trevizo MD Referring Provider Active Start: July 05, 2024 End: July 05, 2024 Dr. Fransisca Orlando MD Attending Provider Active Start: July 05, 2024 End: July 05, 2024 Team Status: Active Member Role Status Dates Dr. Fransisca Orlando MD Attending Provider Active Start: July 05, 2024 Dr. Fransisca Orlando MD Referring Provider Active Start: July 05, 2024 Dr. Casie Trevizo MD Primary Care Provider Active Start: July 05, 2024 Team Status: Active Member Role Status Dates Dr. Casie Trevizo MD Primary Care Provider Active Start: July 06, 2024 Dr. Casie Trevizo MD Referring Provider Active Start: July 06, 2024 Evelyn Robertson DATA SECURITY CONSULTANT, DATA SECURITY CONSULTANT-C Other Provider Active S tart: July 06, 2024 Dr. Juan Carlos Barrow MD Attending Provider Active Start: July 06, 2024 Team Status: Active Member Role Status Dates Dr. Casie Trevizo MD Primary Care Provider Active Start: July 07, 2024 Sukumar PALM MD Attending Provider Active Start: July 07, 2024 Sukumar PALM MD Referring Provider Active Start: July 07, 2024 Team Status: Inactive Member Role Status Dates Dr. Casie Trevizo MD Primary Care Provider Active Start: July 12, 2024 End: July 12, 2024 Dr. Casie Trevizo MD Attending Provider Active Start: July 12, 2024 End: July 12, 2024 Dr. Casie Trevizo MD Referring Provider Active Start: July 12, 2024 End: July 12, 2024 Team Status: Active Member Role Status Dates Dr. Casie Trevizo MD Primary Care Provider Active Start: July 13, 2024 Dr. Casie Trevizo MD Referring Provider Active Start: July 13, 2024 Evelyn Robertson DATA SECURITY CONSULTANT, DATA SECURITY CONSULTANT-C Attending Provider Active Start: July 13, 2024 Evelyn Robertson DATA SECURITY CONSULTANT, DATA SECURITY CONSULTANT-C Other Provider Active S tart: July 13, 2024 Team Status: Active Member Role Status Dates Dr. Casie Trevizo MD Primary Care Provider Active Start: July 14, 2024 Sukumar PALM MD Attending Provider Active Start: July 14, 2024 Team Status: Active Member Role Status Dates Dr. Casie Trevizo MD Primary Care Provider Active Start: July 18, 2024 Evelyn Robertson NP, DATA SECURITY CONSULTANT-C Other Provider Active S tart: July 18, 2024 Dr. Aiden Bartholomew MD Attending Provider Active Start: July 18, 2024 Dr. Aiden Bartholomew MD Referring Provider Active Start: July 18, 2024 Team Status: Inactive Member Role Status Dates Dr. Casie Trevizo MD Primary Care Provider Active Start: July 20, 2024 End: July 20, 2024 Ally Duron DATA SECURITY CONSULTANT, DATA SECURITY CONSULTANT-C Attending Provider Active Start: July 20, 2024 End: July 20, 2024 Team Status: Active Member Role Status Dates Dr. Casie Trevizo MD Primary Care Provider Active Start: July 21, 2024 Sukumar PALM MD Attending Provider Active Start: July 21, 2024 Team Status: Inactive Member Role Status Dates Dr. Casie Trevizo MD Primary Care Provider Active Start: July 27, 2024 End: August 01, 2024 Dr. Casie Trevizo MD Referring Provider Active Start: July 27, 2024 End: August 01, 2024 Evelyn Robertson DATA SECURITY CONSULTANT, DATA SECURITY CONSULTANT-C Attending Provider Active Start: July 27, 2024 End: August 01, 2024 Team Status: Active Member Role Status Dates Dr. Casie Trevizo MD Primary Care Provider Active Start: July 27, 2024 Dr. Casie Trevizo MD Referring Provider Active Start: July 27, 2024 Evelyn Robertson DATA SECURITY CONSULTANT, DATA SECURITY CONSULTANT-C Attending Provider Active Start: July 27, 2024 Evelyn Robertson DATA SECURITY CONSULTANT, DATA SECURITY CONSULTANT-C Other Provider Active S tart: July 27, 2024 Team Status: Active Member Role Status Dates Dr. Casie Trevizo MD Primary Care Provider Active Start: August 03, 2024 Dr. Casie Trevizo MD Referring Provider Active Start: August 03, 2024 Evelyn Robertson DATA SECURITY CONSULTANT, DATA SECURITY CONSULTANT-C Attending Provider Active Start: August 03, 2024 Evelyn Robertson DATA SECURITY CONSULTANT, DATA SECURITY CONSULTANT-C Other Provider Active S tart: August 03, 2024 Team Status: Active Member Role Status Dates Dr. Casie Trevizo MD Primary Care Provider Active Start: August 10, 2024 Dr. Casie Trevizo MD Referring Provider Active Start: August 10, 2024 Evelyn Robertson DATA SECURITY CONSULTANT, DATA SECURITY CONSULTANT-C Attending Provider Active Start: August 10, 2024 Evelyn Robertson DATA SECURITY CONSULTANT, DATA SECURITY CONSULTANT-C Other Provider Active S tart: August 10, 2024 Team Status: Active Member Role Status Dates Dr. Casie Trevizo MD Primary Care Provider Active Start: August 17, 2024 Dr. Casie Trevizo MD Referring Provider Active Start: August 17, 2024 Evelyn Robertson DATA SECURITY CONSULTANT, DATA SECURITY CONSULTANT-C Attending Provider Active Start: August 17, 2024 Evelyn Robertson DATA SECURITY CONSULTANT, DATA SECURITY CONSULTANT-C Other Provider Active S tart: August 17, 2024 Team Status: Active Member Role Status Dates Dr. Casie Trevizo MD Primary Care Provider Active Start: August 24, 2024 Dr. Casie Trevizo MD Referring Provider Active Start: August 24, 2024 Evelyn Robertson DATA SECURITY CONSULTANT, DATA SECURITY CONSULTANT-C Attending Provider Active Start: August 24, 2024 Evelyn Robertson DATA SECURITY CONSULTANT, DATA SECURITY CONSULTANT-C Other Provider Active S tart: August 24, 2024 Team Status: Inactive Member Role Status Dates Dr. Casie Trevizo MD Primary Care Provider Active Start: August 31, 2024 End: August 31, 2024 Dr. Casie Trevizo MD Referring Provider Active Start: August 31, 2024 End: August 31, 2024 Evelyn Robertson DATA SECURITY CONSULTANT, DATA SECURITY CONSULTANT-C Attending Provider Active Start: August 31, 2024 End: August 31, 2024 Team Status: Active Member Role Status Dates Dr. Casie Trevizo MD Primary Care Provider Active Start: August 31, 2024 Dr. Casie Trevizo MD Referring Provider Active Start: August 31, 2024 Evelyn Robertson DATA SECURITY CONSULTANT, DATA SECURITY CONSULTANT-C Attending Provider Active Start: August 31, 2024 Evelyn Robertson DATA SECURITY CONSULTANT, DATA SECURITY CONSULTANT-C Other Provider Active S tart: August 31, 2024 Team Status: Active Member Role Status Dates Dr. Casie Trevizo MD Primary Care Provider Active Start: September 07, 2024 Dr. Casie Trevizo MD Referring Provider Active Start: September 07, 2024 Evelyn Robertson DATA SECURITY CONSULTANT, DATA SECURITY CONSULTANT-C Attending Provider Active Start: September 07, 2024 Evelyn Robertson DATA SECURITY CONSULTANT, DATA SECURITY CONSULTANT-C Other Provider Active S tart: September 07, 2024 Team Status: Active Member Role Status Dates Dr. Casie Trevizo MD Primary Care Provider Active Start: September 14, 2024 Dr. Casie Trevizo MD Referring Provider Active Start: September 14, 2024 Evelyn Robertson DATA SECURITY CONSULTANT, DATA SECURITY CONSULTANT-C Attending Provider Active Start: September 14, 2024 Evelyn Robertson DATA SECURITY CONSULTANT, DATA SECURITY CONSULTANT-C Other Provider Active S tart: September 14, 2024 Team Status: Active Member Role Status Dates Dr. Casie Trevizo MD Primary Care Provider Active Start: September 21, 2024 Dr. Casie Trevizo MD Referring Provider Active Start: September 21, 2024 Evelyn Robertson DATA SECURITY CONSULTANT, DATA SECURITY CONSULTANT-C Attending Provider Active Start: September 21, 2024 Evelyn Robertson DATA SECURITY CONSULTANT, DATA SECURITY CONSULTANT-C Other Provider Active S tart: September 21, 2024 Team Status: Inactive Member Role Status Dates Dr. Casie Trevizo MD Primary Care Provider Active Start: September 28, 2024 End: October 01, 2024 Dr. Casie Trevizo MD Referring Provider Active Start: September 28, 2024 End: October 01, 2024 Evelyn Robertson DATA SECURITY CONSULTANT, DATA SECURITY CONSULTANT-C Attending Provider Active Start: September 28, 2024 End: October 01, 2024 Team Status: Active Member Role Status Dates Dr. Casie Trevizo MD Primary Care Provider Active Start: September 28, 2024 Dr. Casie Trevizo MD Referring Provider Active Start: September 28, 2024 Evelyn Robertson DATA SECURITY CONSULTANT, DATA SECURITY CONSULTANT-C Attending Provider Active Start: September 28, 2024 Evleyn Robertson DATA SECURITY CONSULTANT, DATA SECURITY CONSULTANT-C Other Provider Active S tart: September 28, 2024 Team Status: Active Member Role/Relationship Status Dates Dr. Casie Trevizo MD Primary Care Provider Active Team Status: Inactive Member Role/Relationship Status Dates Dr. Casie Trevizo MD Primary Care Provider Active Start: July 05, 2024 End: July 05, 2024 Dr. Casie Trevizo MD Referring Provider Active Start: July 05, 2024 End: July 05, 2024 Dr. Fransisca Orlando MD Attending Provider Active Start: July 05, 2024 End: July 05, 2024 Team Status: Active Member Role/Relationship Status Dates Dr. Fransisac Orlando MD Attending Provider Active Start: July 05, 2024 Dr. Fransisca Orlando MD Referring Provider Active Start: July 05, 2024 Dr. Casie Trevizo MD Primary Care Provider Active Start: July 05, 2024 Team Status: Active Member Role/Relationship Status Dates Dr. Casie Trevizo MD Primary Care Provider Active Start: July 06, 2024 Dr. Casie Trevizo MD Referring Provider Active Start: July 06, 2024 Evelyn Robertson DATA SECURITY CONSULTANT, DATA SECURITY CONSULTANT-C Other Provider Active S tart: July 06, 2024 Dr. Juan Carlos Barrow MD Attending Provider Active Start: July 06, 2024 Team Status: Active Member Role/Relationship Status Dates Dr. Casie Trevizo MD Primary Care Provider Active Start: July 07, 2024 Sukumar PALM MD Attending Provider Active Start: July 07, 2024 Sukumar PALM MD Referring Provider Active Start: July 07, 2024 Team Status: Inactive Member Role/Relationship Status Dates Dr. Casie Trevizo MD Primary Care Provider Active Start: July 12, 2024 End: July 12, 2024 Dr. Casie Trevizo MD Attending Provider Active Start: July 12, 2024 End: July 12, 2024 Dr. Casie Trevizo MD Referring Provider Active Start: July 12, 2024 End: July 12, 2024 Team Status: Active Member Role/Relationship Status Dates Dr. Casie Trevizo MD Primary Care Provider Active Start: July 13, 2024 Dr. Casie Trevizo MD Referring Provider Active Start: July 13, 2024 Evelyn Robertson DATA SECURITY CONSULTANT, DATA SECURITY CONSULTANT-C Attending Provider Active Start: July 13, 2024 Evelyn Robertson DATA SECURITY CONSULTANT, DATA SECURITY CONSULTANT-C Other Provider Active S tart: July 13, 2024 Team Status: Active Member Role/Relationship Status Dates Dr. Casie Trevizo MD Primary Care Provider Active Start: July 14, 2024 Sukumar PALM MD Attending Provider Active Start: July 14, 2024 Team Status: Active Member Role/Relationship Status Dates Dr. Casie Trevizo MD Primary Care Provider Active Start: July 18, 2024 Evelyn Robertson DATA SECURITY CONSULTANT, DATA SECURITY CONSULTANT-C Other Provider Active S tart: July 18, 2024 Dr. Aiden Bartholomew MD Attending Provider Active Start: July 18, 2024 Dr. Aiden Bartholomew MD Referring Provider Active Start: July 18, 2024 Team Status: Inactive Member Role/Relationship Status Dates Dr. Casie Trevizo MD Primary Care Provider Active Start: July 20, 2024 End: July 20, 2024 Ally Duron DATA SECURITY CONSULTANT, DATA SECURITY CONSULTANT-C Attending Provider Active Start: July 20, 2024 End: July 20, 2024 Team Status: Active Member Role/Relationship Status Dates Dr. Casie Trevizo MD Primary Care Provider Active Start: July 21, 2024 Sukumar PALM MD Attending Provider Active Start: July 21, 2024 Team Status: Inactive Member Role/Relationship Status Dates Dr. Casie Trevizo MD Primary Care Provider Active Start: July 27, 2024 End: August 01, 2024 Dr. Casie Trevizo MD Referring Provider Active Start: July 27, 2024 End: August 01, 2024 Evelyn Robertson DATA SECURITY CONSULTANT, DATA SECURITY CONSULTANT-C Attending Provider Active Start: July 27, 2024 End: August 01, 2024 Team Status: Active Member Role/Relationship Status Dates Dr. Casie Trevizo MD Primary Care Provider Active Start: July 27, 2024 Dr. Casie Trevizo MD Referring Provider Active Start: July 27, 2024 Evelyn Robertson DATA SECURITY CONSULTANT, DATA SECURITY CONSULTANT-C Attending Provider Active Start: July 27, 2024 Evelyn Robertson DATA SECURITY CONSULTANT, DATA SECURITY CONSULTANT-C Other Provider Active S tart: July 27, 2024 Team Status: Active Member Role/Relationship Status Dates Dr. Casie Trevizo MD Primary Care Provider Active Start: August 03, 2024 Dr. Casie Trevizo MD Referring Provider Active Start: August 03, 2024 Evelyn Robertson DATA SECURITY CONSULTANT, DATA SECURITY CONSULTANT-C Attending Provider Active Start: August 03, 2024 Evelyn Robertson DATA SECURITY CONSULTANT, DATA SECURITY CONSULTANT-C Other Provider Active S tart: August 03, 2024 Team Status: Active Member Role/Relationship Status Dates Dr. Casie Trevizo MD Primary Care Provider Active Start: August 10, 2024 Dr. Casie Trevizo MD Referring Provider Active Start: August 10, 2024 Evelyn Robertson DATA SECURITY CONSULTANT, DATA SECURITY CONSULTANT-C Attending Provider Active Start: August 10, 2024 Evelyn Robertson DATA SECURITY CONSULTANT, DATA SECURITY CONSULTANT-C Other Provider Active S tart: August 10, 2024 Team Status: Active Member Role/Relationship Status Dates Dr. Casie Trevizo MD Primary Care Provider Active Start: August 17, 2024 Dr. Casie Trevizo MD Referring Provider Active Start: August 17, 2024 Evelyn Robertson DATA SECURITY CONSULTANT, DATA SECURITY CONSULTANT-C Attending Provider Active Start: August 17, 2024 Evelyn Robertson DATA SECURITY CONSULTANT, DATA SECURITY CONSULTANT-C Other Provider Active S tart: August 17, 2024 Team Status: Active Member Role/Relationship Status Dates Dr. Casie Trevizo MD Primary Care Provider Active Start: August 24, 2024 Dr. Casie Trevizo MD Referring Provider Active Start: August 24, 2024 Evelyn Robertson DATA SECURITY CONSULTANT, DATA SECURITY CONSULTANT-C Attending Provider Active Start: August 24, 2024 Evelyn Robertson DATA SECURITY CONSULTANT, DATA SECURITY CONSULTANT-C Other Provider Active S tart: August 24, 2024 Team Status: Inactive Member Role/Relationship Status Dates Dr. Casie Trevizo MD Primary Care Provider Active Start: August 31, 2024 End: August 31, 2024 Dr. Casie Trevizo MD Referring Provider Active Start: August 31, 2024 End: August 31, 2024 Evelyn Robertson DATA SECURITY CONSULTANT, DATA SECURITY CONSULTANT-C Attending Provider Active Start: August 31, 2024 End: August 31, 2024 Team Status: Active Member Role/Relationship Status Dates Dr. Casie Trevizo MD Primary Care Provider Active Start: August 31, 2024 Dr. Casie Trevizo MD Referring Provider Active Start: August 31, 2024 Evelyn Robertson DATA SECURITY CONSULTANT, DATA SECURITY CONSULTANT-C Attending Provider Active Start: August 31, 2024 Evelyn Robertson DATA SECURITY CONSULTANT, DATA SECURITY CONSULTANT-C Other Provider Active S tart: August 31, 2024 Team Status: Active Member Role/Relationship Status Dates Dr. Casie Trevizo MD Primary Care Provider Active Start: September 07, 2024 Dr. Casie Trevizo MD Referring Provider Active Start: September 07, 2024 Evelyn Robertson DATA SECURITY CONSULTANT, DATA SECURITY CONSULTANT-C Attending Provider Active Start: September 07, 2024 Evelyn Robertson DATA SECURITY CONSULTANT, DATA SECURITY CONSULTANT-C Other Provider Active S tart: September 07, 2024 Team Status: Active Member Role/Relationship Status Dates Dr. Casie Trevizo MD Primary Care Provider Active Start: September 14, 2024 Dr. Casie Trevizo MD Referring Provider Active Start: September 14, 2024 Evelyn Robertson DATA SECURITY CONSULTANT, DATA SECURITY CONSULTANT-C Attending Provider Active Start: September 14, 2024 Evelyn Robertson DATA SECURITY CONSULTANT, DATA SECURITY CONSULTANT-C Other Provider Active S tart: September 14, 2024 Team Status: Active Member Role/Relationship Status Dates Dr. Casie Trevizo MD Primary Care Provider Active Start: September 21, 2024 Dr. Casie Trevizo MD Referring Provider Active Start: September 21, 2024 Evelyn Robertson DATA SECURITY CONSULTANT, DATA SECURITY CONSULTANT-C Attending Provider Active Start: September 21, 2024 Evelyn Robertson DATA SECURITY CONSULTANT, DATA SECURITY CONSULTANT-C Other Provider Active S tart: September 21, 2024 Team Status: Inactive Member Role/Relationship Status Dates Dr. Casie Trevizo MD Primary Care Provider Active Start: September 28, 2024 End: October 01, 2024 Dr. Casie Trevizo MD Referring Provider Active Start: September 28, 2024 End: October 01, 2024 Evelyn Robertson DATA SECURITY CONSULTANT, DATA SECURITY CONSULTANT-C Attending Provider Active Start: September 28, 2024 End: October 01, 2024 Team Status: Active Member Role/Relationship Status Dates Dr. Casie Trevizo MD Primary Care Provider Active Start: September 28, 2024 Dr. Casie Trevizo MD Referring Provider Active Start: September 28, 2024 Evelyn Robertson DATA SECURITY CONSULTANT, DATA SECURITY CONSULTANT-C Attending Provider Active Start: September 28, 2024 Evelyn Robertson DATA SECURITY CONSULTANT, DATA SECURITY CONSULTANT-C Other Provider Active S tart: September 28, 2024 Team Status: Active Member Role/Relationship Status Dates Dr. Casie Trevizo MD Primary Care Provider Active Start: October 05, 2024 Dr. Casie Trevizo MD Referring Provider Active Start: October 05, 2024 Evelyn Robertson DATA SECURITY CONSULTANT, DATA SECURITY CONSULTANT-C Attending Provider Active Start: October 05, 2024 Evelyn Robertson DATA SECURITY CONSULTANT, DATA SECURITY CONSULTANT-C Other Provider Active S tart: October 05, 2024 Team Status: Inactive Member Role/Relationship Status Dates Dr. Casie Trevizo MD Primary Care Provider Active Start: October 12, 2024 End: October 31, 2024 Dr. Casie Trevizo MD Referring Provider Active Start: October 12, 2024 End: October 31, 2024 Evelyn Robertson DATA SECURITY CONSULTANT, DATA SECURITY CONSULTANT-C Attending Provider Active Start: October 12, 2024 End: October 31, 2024 Team Status: Active Member Role/Relationship Status Dates Dr. Casie Trevizo MD Primary Care Provider Active Start: October 12, 2024 Dr. Casie Trevizo MD Referring Provider Active Start: October 12, 2024 Evelyn Robertson DATA SECURITY CONSULTANT, DATA SECURITY CONSULTANT-C Attending Provider Active Start: October 12, 2024 Evelyn Robertson DATA SECURITY CONSULTANT, DATA SECURITY CONSULTANT-C Other Provider Active S tart: October 12, 2024 Team Status: Active Member Role/Relationship Status Dates Ye Hoffman MD Primary Care Provider Active Team Status: Active Member Role/Relationship Status Dates Dr. Casie Trevizo MD Primary Care Provider Active Start: September 07, 2024 Dr. Casie Trevizo MD Referring Provider Active Start: September 07, 2024 Evelyn Robertson DATA SECURITY CONSULTANT, DATA SECURITY CONSULTANT-C Attending Provider Active Start: September 07, 2024 Evelyn Robertson DATA SECURITY CONSULTANT, DATA SECURITY CONSULTANT-C Other Provider Active S tart: September 07, 2024 Team Status: Active Member Role/Relationship Status Dates Dr. Casie Trevizo MD Primary Care Provider Active Start: September 14, 2024 Dr. Casie Trevizo MD Referring Provider Active Start: September 14, 2024 Evelyn Robertson DATA SECURITY CONSULTANT, DATA SECURITY CONSULTANT-C Attending Provider Active Start: September 14, 2024 Evelyn Robertson DATA SECURITY CONSULTANT, DATA SECURITY CONSULTANT-C Other Provider Active S tart: September 14, 2024 Team Status: Active Member Role/Relationship Status Dates Dr. Casie Trevizo MD Primary Care Provider Active Start: September 21, 2024 Dr. Casie Trevizo MD Referring Provider Active Start: September 21, 2024 Evelyn Robertson DATA SECURITY CONSULTANT, DATA SECURITY CONSULTANT-C Attending Provider Active Start: September 21, 2024 Evelyn Robertson DATA SECURITY CONSULTANT, DATA SECURITY CONSULTANT-C Other Provider Active S tart: September 21, 2024 Team Status: Inactive Member Role/Relationship Status Dates Dr. Casie Trevizo MD Primary Care Provider Active Start: September 28, 2024 End: October 01, 2024 Dr. Casie Trevizo MD Referring Provider Active Start: September 28, 2024 End: October 01, 2024 Evelyn Robertson DATA SECURITY CONSULTANT, DATA SECURITY CONSULTANT-C Attending Provider Active Start: September 28, 2024 End: October 01, 2024 Team Status: Active Member Role/Relationship Status Dates Dr. Casie Trevizo MD Primary Care Provider Active Start: September 28, 2024 Dr. Casie Trevizo MD Referring Provider Active Start: September 28, 2024 Evelyn Robertson DATA SECURITY CONSULTANT, DATA SECURITY CONSULTANT-C Attending Provider Active Start: September 28, 2024 Evelyn Robertson DATA SECURITY CONSULTANT, DATA SECURITY CONSULTANT-C Other Provider Active S tart: September 28, 2024 Team Status: Active Member Role/Relationship Status Dates Dr. Casie Trevizo MD Primary Care Provider Active Start: October 05, 2024 Dr. Casie Trevizo MD Referring Provider Active Start: October 05, 2024 Evelyn Robertson DATA SECURITY CONSULTANT, DATA SECURITY CONSULTANT-C Attending Provider Active Start: October 05, 2024 Evelyn Robertson DATA SECURITY CONSULTANT, DATA SECURITY CONSULTANT-C Other Provider Active S tart: October 05, 2024 Team Status: Inactive Member Role/Relationship Status Dates Dr. Casie Trevizo MD Primary Care Provider Active Start: October 12, 2024 End: October 31, 2024 Dr. Casie Trevizo MD Referring Provider Active Start: October 12, 2024 End: October 31, 2024 Evelyn Robertson DATA SECURITY CONSULTANT, DATA SECURITY CONSULTANT-C Attending Provider Active Start: October 12, 2024 End: October 31, 2024 Team Status: Active Member Role/Relationship Status Dates Dr. Casie Trevizo MD Primary Care Provider Active Start: October 12, 2024 Dr. Casie Trevizo MD Referring Provider Active Start: October 12, 2024 Evelyn Robertson DATA SECURITY CONSULTANT, DATA SECURITY CONSULTANT-C Attending Provider Active Start: October 12, 2024 Evelyn Robertson DATA SECURITY CONSULTANT, DATA SECURITY CONSULTANT-C Other Provider Active S tart: October 12, 2024 Team Status: Inactive Member Role/Relationship Status Dates Ye Hoffman MD Primary Care Provider Active St art: December 27, 2024 End: December 27, 2024 Ye Hoffman MD Attending Provider Active Start : December 27, 2024 End: December 27, 2024 Ye Hoffman MD Referring Provider Active Start : December 27, 2024 End: December 27, 2024 Team Status: Active Member Role/Relationship Status Dates Dr. Casie Trevizo MD Primary Care Provider Active Start: September 21, 2024 Dr. Casie Trevizo MD Referring Provider Active Start: September 21, 2024 Evelyn Robertson DATA SECURITY CONSULTANT, DATA SECURITY CONSULTANT-C Attending Provider Active Start: September 21, 2024 Evelyn Robertson DATA SECURITY CONSULTANT, DATA SECURITY CONSULTANT-C Other Provider Active S tart: September 21, 2024 Team Status: Inactive Member Role/Relationship Status Dates Dr. Casie Trevizo MD Primary Care Provider Active Start: September 28, 2024 End: October 01, 2024 Dr. Casie Trevizo MD Referring Provider Active Start: September 28, 2024 End: October 01, 2024 Evelyn Robertson DATA SECURITY CONSULTANT, DATA SECURITY CONSULTANT-C Attending Provider Active Start: September 28, 2024 End: October 01, 2024 Team Status: Active Member Role/Relationship Status Dates Dr. Casie Trevizo MD Primary Care Provider Active Start: September 28, 2024 Dr. Casie Trevizo MD Referring Provider Active Start: September 28, 2024 Evelyn Robertson DATA SECURITY CONSULTANT, DATA SECURITY CONSULTANT-C Attending Provider Active Start: September 28, 2024 Evelyn Robertson DATA SECURITY CONSULTANT, DATA SECURITY CONSULTANT-C Other Provider Active S tart: September 28, 2024 Team Status: Active Member Role/Relationship Status Dates Dr. Casie Trevizo MD Primary Care Provider Active Start: October 05, 2024 Dr. Casie Trevizo MD Referring Provider Active Start: October 05, 2024 Evelyn Robertson DATA SECURITY CONSULTANT, DATA SECURITY CONSULTANT-C Attending Provider Active Start: October 05, 2024 Evelyn Robertson DATA SECURITY CONSULTANT, DATA SECURITY CONSULTANT-C Other Provider Active S tart: October 05, 2024 Team Status: Inactive Member Role/Relationship Status Dates Dr. Casie Trevizo MD Primary Care Provider Active Start: October 12, 2024 End: October 31, 2024 Dr. Casie Trevizo MD Referring Provider Active Start: October 12, 2024 End: October 31, 2024 Evelyn Robertson DATA SECURITY CONSULTANT, DATA SECURITY CONSULTANT-C Attending Provider Active Start: October 12, 2024 End: October 31, 2024 Team Status: Active Member Role/Relationship Status Dates Dr. Casie Trevizo MD Primary Care Provider Active Start: October 12, 2024 Dr. Casie Trevizo MD Referring Provider Active Start: October 12, 2024 Evelyn Robertson DATA SECURITY CONSULTANT, DATA SECURITY CONSULTANT-C Attending Provider Active Start: October 12, 2024 Evelyn Robertson DATA SECURITY CONSULTANT, DATA SECURITY CONSULTANT-C Other Provider Active S tart: October 12, 2024 Team Status: Inactive Member Role/Relationship Status Dates Ye Hoffman MD Primary Care Provider Active St art: December 27, 2024 End: December 27, 2024 Ye Hoffman MD Attending Provider Active Start : December 27, 2024 End: December 27, 2024 Ye Hoffman MD Referring Provider Active Start : December 27, 2024 End: December 27, 2024 Team Status: Inactive Member Role/Relationship Status Dates Ye Hoffman MD Primary Care Provider Active St art: January 16, 2025 End: January 16, 2025 Dr. Star Corona MD Attending Provider Active Start: January 16, 2025 End: January 16, 2025 Dr. Star Corona MD Referring Provider Active Start: January 16, 2025 End: January 16, 2025 INFORMATION SOURCE (unrecogn ized section and content) DATE CREATED AUTHOR 04/08/2021 [facility] DATE CREATED AUTHOR AUTHOR'S ORGANIZ ATION 05/12/2024 [facility] DATE CREATED AUTHOR AUTHOR'S ORGANIZ ATION 05/19/2024 [facility] DATE CREATED AUTHOR AUTHOR'S ORGANIZ ATION 02/07/2025 [facility] Goals (unrecognized section and content) Goals may be documented in a n alternate sectionGoals may be documented in an alternate sectionGoals may be documented in an alternate sectionGoals may be documented in an alternate sectionGoals may be documented in an alternate sectionGoals may be documented in an alternate sectionGoals may be documented in an alternate sectionGoals may be documented in an alternate sectionGoals may be documented in an alternate sectionGoals may be documented in an alternate sectionGoals may be documented in an alternate sectionGoals may be documented in an alternate sectionGoals may be documented in an alternate sectionGoals may be documented in an alternate section Source Comments (unrecognize d section and content) In the event this informatio n is protected by the Federal Confidentiality of Alcohol and Drug Abuse Patient Records regulations: The Federal rules restrict any use of the information to criminally investigate or prosecute any alcohol or drug abuse patient.[facility] the event this information is protected by the Federal Confidentiality of Alcohol and Drug Abuse Patient Records regulations: The Federal rules restrict any use of the information to criminally investigate or prosecute any alcohol or drug abuse patient.[facility] the event this information is protected by the Federal Confidentiality of Alcohol and Drug Abuse Patient Records regulations: The Federal rules restrict any use of the information to criminally investigate or prosecute any alcohol or drug abuse patient.[facility] the event this information is protected by the Federal Confidentiality of Alcohol and Drug Abuse Patient Records regulations: The Federal rules restrict any use of the information to criminally investigate or prosecute any alcohol or drug abuse patient.[facility] FOR RECORDS PERTAINING TO PATIENTS WHO ARE [...] BE BASED ON THE PRIMARY CLINICAL RECORDS. [facility] [employer] [facility] provides no warranty or guarantee of the accuracy or completeness of information in this document.
[2025-03-11 14:04] LABS: Color, Urine Yellow (Yellow); Glucose, Dipstick Normal (Normal); Ketone-Dipstick 5 mg/dl (Negative); Leukocyte Esterase-Dipstick 25 /ul (Negative); Nitrite-Dipstick Negative (Negative); Occult Blood-Urine 25 /ul (Negative); Protein-Dipstick 100 mg/dl (Negative); Specific Gravity, Urine 1.010 (1.002-1.030); Urine Bilirubin Dipstick Negative (Negative)
[2025-03-11 14:07] LABS: AST(SGOT) 27 U/L (<=31); Alanine Aminotransfer ALT/SGPT 15 U/L (<=34); Albumin, Serum 4.2 g/dL (3.4-4.8); Alkaline Phosphatase 40 U/L (35-104); Anion Gap 14 (5-15); BUN 19 mg/dL (4-19); BUN/Creat Ratio 19.0 RATIO (10-20); Calcium,Total 9.0 mg/dL (7.6-11.0); Carbon Dioxide 25.1 mmol/L (21.0-32.0); Chloride 94 mmol/L (98-108); Estimated Creatinine Clearance 32.93 ml/min (50-250); Globulin 2.5 g/dL (2.2-4.2); Glucose 82 mg/dL (70-99); Potassium 2.8 mmol/L (3.3-5.1)
[2025-03-11 14:13] LABS: Differential Indicated SCAN CRITERIA MET
[2025-03-11 14:13] LABS: Red Blood Cells-Urine 0-5 SEEN /hpf (0-5)
[2025-03-11 14:16] LABS: Prothrombin Time (Protime)PT. 14.3 SECONDS (11.7-14.9)
[2025-03-11 14:17] LABS: Partial Thromboplast Time 31.4 Seconds (24.1-36.2)
--- NOTE | 2025-03-11 14:30 | CT_ITS ---
PROCEDURE: ABDOMEN/PELVIS W IV CONT ONLY 03/11/2025 REASON FOR EXAM: DIFFUSE PAIN, VOMITING, DIARRHEA TECHNIQUE: Procedure Code: [id number] Modality: CT Procedure: ABDOMEN/PELVIS W IV CONT ONLY Coronal and Sagittal reconstruction series were provided. CONTRAST: Isovue 370 VOLUME: 75 mL One or more dose reduction techniques were used (e.g., Automated exposure control, adjustment of the mA and/or kV according to patient size, use of iterative reconstruction technique. RADIATION DOSE SUMMARY: CTDlvol: 14 mGy DLP: 254 mGycm COMPARISON: 03/31/2024 FINDINGS: Normal lumbar alignment. Normal vertebral body height. The liver is unremarkable. The gallbladder is markedly distended but without calcified gallstones. The spleen has an unremarkable CT appearance. There is fatty change throughout the pancreas with a prominent pancreatic duct suspected. No pancreatic masses identified. There is no renal mass, hydronephrosis or calculus. The abdominal aorta exhibits normal caliber. There are areas of increased density in the dorsal soft tissues dorsal to the left hip and sacrum. Correlate for any decubitus process in this region. There is moderate free-fluid in the pelvis. This finding was also noted previously. There is a new finding of mild small-bowel distention and small-bowel enhancement concerning for enteritis. There is moderate increased caliber of the small bowel loops as well. I do not see colonic obstruction. No free air is noted. There is air in the right lower quadrant which may be within a combination of bowel loops as well as air within the anterior bladder. No rim enhancing abscess CT/Abdomen/Pelvis W IV Cont ONLY IMPRESSION: Free-fluid which was also present previously. Question decubitus process witho ut deep ulceration. Probable enteritis with small bowel distention and enhancement. However, can not exclude a developing small bowel obstruction and follow-up is recommended. Reading [facility]
[2025-03-11] MEDS: fentaNYL 100 MCG/2 ML Ampul 50 MCG IV (14:47)
[2025-03-11 15:15] LABS: Differential Comment SCANNED
[2025-03-11] MEDS: Potassium Chloride 10mEq/100mL 10 MEQ/100 ML IV.SOLN. 100 MEQ IV BOLUS (16:18)
--- OUTSIDE RECORDS SUMMARY | 2025-03-11 17:25 | XMS RPT_ITS | CCD ---
Author Organization [facility] CliniSyin Care Team Providers Care Tunnel Kiln Operator Name Role Phone Maryanne Valencia Unavailable Unavailable Primary Care Provider Unavailabl e Kiran DO, Cara F Primary Care Provider Kiran DO, Cara Davidson Primary Care Provider [phone] SYSTEM, PROVIDER NOT IN Attending Unavaila ble [...] Unavailable Dr. Cara Arce Primary Care Provider Dr. Cara Arce Referring Provider Friend, Dr. Finch Attending Provider Dr. Fransisca [...] Marcus Primary Care Provider Unav ailable Dr. Casie Trevizo Primary Care Provider Dr. Casie Trevizo Referring Provider Dr. Fransisca Orlando Attending Provider Cara Arce MD Primary Care Provider GUSTABO SALDIVAR Attending Unavailable CASE PHAN Admitting Unavailable CARA ARCE Primary Care Unavailable DUMFORD III, BRIGIDO Emmanuel MD, Dr. Casie Burnham Primary Care Provider Dr. Casie Trevizo MD Referring Provider Marcelo MEDICAL SALES REPRESENTATIVE-C, Evelyn Attending Provider Marcelo MEDICAL SALES REPRESENTATIVE-C, Evelyn Other Provider Sukumar Velazquez MD Attending Provider Unavailasim Velazquez MD, Dr. Patino Attending Provider Corine MEDICAL SALES REPRESENTATIVE-C, Brooke E Attending Provider Corine MEDICAL SALES REPRESENTATIVE-C, Brooke E Referring Provider Caroline DENIS, Sukumar Referring Provider Unavailasim Orlando MD, Dr. Gongora Attending Provider Dr. Fransisca Orlando MD Referring Provider Danial DENIS, Dr. Juan Carlos Vera Attending Provider Joseline DENIS, Dr. Casie Burnham Attending Provider Puma DENIS, Dr. Wolfe Attending Provider Puma DENIS, Dr. Wolfe Referring Provider Domi MEDICAL SALES REPRESENTATIVE-C, Ally Attending Provider Joseline DENIS, Dr. Casie Burnham Primary Care Provider Joseline DENIS, Dr. Casie Burnham Referring Provider Darion DENIS, Dr. Gongora Attending Provider Dr. Fransisca Orlando MD Referring Provider Robertson MEDICAL SALES REPRESENTATIVE-C, Evelyn Other Provider Danial DENIS, Dr. Juan Carlos Vera Attending Provider Caroline DENIS, Sukumar Attending Provider Unavailasim Velazquez MD, Sukumar Referring Provider Unavailasim Trevizo MD, Dr. Casie Burnham Attending Provider Robertson MEDICAL SALES REPRESENTATIVE-C, Evelyn Attending Provider Dr. Aiden Bartholomew MD Attending Provider Dr. Aiden Bartholomew MD Referring Provider Tickarminda MEDICAL SALES REPRESENTATIVE-C, Ally Attending Provider Joseline DENIS, Dr. Casie Burnham Primary Care Provider Joseline DENIS, Dr. Casie Burnham Referring Provider Robertson MEDICAL SALES REPRESENTATIVE-C, Evelyn Attending Provider Robertson MEDICAL SALES REPRESENTATIVE-C, Evelyn Other Provider Yasmin DENIS, Ye Primary Care Provider Yasmin DENIS, Ye Attending Provider Yasmin DENIS, Ye Referring Provider [phone] Joseline DENIS, Dr. Casie Burnham Primary Care Provider [phone] Joseline DENIS, Dr. Casie Burnham Referring Provider Marcelo MEDICAL SALES REPRESENTATIVE-C, Evelyn Attending Provider Marcelo MEDICAL SALES REPRESENTATIVE-C, Evelyn Other Provider [phone] Cj DENIS, Dr. Graves Attending Provider Cj [...] Unavailable Jolliff, Casie S Referring Unavailable Robertson MEDICAL SALES REPRESENTATIVE, Evelyn Attending Unavailable Jolliff, Casie S Primary Care Unavailable Robertson MEDICAL SALES REPRESENTATIVE, Evelyn Attending Unavailable Jolliff, Casie S Referring Unavailable Jolliff, Casie S Primary Care Unavailable Robertson MEDICAL SALES REPRESENTATIVE, Evelyn Attending Unavailable Jolliff, Casie S Referring Unavailable Robertson MEDICAL SALES REPRESENTATIVE, Evelyn Attending Unavailable Jolliff, Casie S Referring Unavailable Jolliff, Casie S Primary Care Unavailable Nathen Ontiveros Referring Unavailable Nathen Ontiveros Attending Unavailable Jolliff, Casie S Primary Care Unavailable Star Corona Attending Unavailable Star Corona Referring Unavailable Yasmin, Chalon Primary Care Unavailable Yasmin, Chalon Primary [...] Jolliff, Casie S Primary Care Unavailable Corine MEDICAL SALES REPRESENTATIVE, Brooke Haile Referring Unavailabl issa Pool MEDICAL SALES REPRESENTATIVE, Brooke Haile Attending Unavailabl e Marcelo MEDICAL SALES REPRESENTATIVE, Evelyn Consulting Unavailable Aiden Bartholomew Referring Unavailable Jolliff, Casie S Primary Care Unavailable Aiden Bartholomew Attending Unavailable Marcelo MEDICAL SALES REPRESENTATIVE, Evelyn Consulting Unavailable Ciaran Garcia Attending Unavailable Ciaran Garcia Consulting Unavailable Morales, Achintya Attending Unavailable Isma, Gonzalez Attending Unavailable Jolliff, Casie S Primary Care Unavailable Domi PAGAN, Ally Attending Unavailable Jolliff, Casie S Primary Care Unavailable Fransisca Orlando Attending Unavailable Jolliff, Casie S Referring Unavailable Jolliff, Casie S Primary Care Unavailable Oleghe, Efewongbe Attending Unavailable Jolliff, Casie S Primary Care Unavailable Domi MEDICAL SALES REPRESENTATIVE, Ally Attending Unavailable Oleghe, Efewongbe Attending Unavailable Jolliff, Casie S Primary Care Unavailable Oleghe OLS, Efewongbe Attending Unavailabl e Jolliff, Casie S Primary Care Unavailable Jolliff, Casie S Primary Care Unavailable Marcelo MEDICAL SALES REPRESENTATIVE, Evelyn Attending Unavailable Jolliff, Casie S Referring [...] Unavailable Jolliff, Casie S Referring Unavailable Marcelo MEDICAL SALES REPRESENTATIVE, Evelyn Attending Unavailable Allergies Allergy Classification Reported Allergen(s) Allergy Type Date of Onset Reaction(s) Facility ziconotide (6 sources) ziconotide Drug Allergy 1 [facility] (16 sources) ziconotide; Translations: [ZICONOTIDE] Drug Allergy 1 Other: See Comments [facility] Comment on above: seizure like activit y (1 source) ziconotide Drug Allergy 5 [facility] Repository Medications Current Medications Medication Drug Class(es) [...] Suspended docusate sodium 50 mg / sennosides, fci 8.6 mg oral tablet (20 sources) Start: [...] Start: 01-14-2021 take 1 capsule by mo [facility] once daily Duloxetine (Cymbalta) 60 mg Capsule,Delayed [...] December 16, 2023 12:00am polyethylene glycol 3350 15817 mg powder for oral solution (20 sources) [...] 06, 2015 12:00am September 14, 2015 3:21pm Fabxe-Wxlv-Eewf n-Liivsy-Sn-Min (Leeroy (With Collagen)) 1 PACKET Packet (20 sources) Start: 08-06-2015 End: 09-14-2015 take 1 dose by mouth twice daily at mealtime Kjsmj-Qhis-Wtmbh-Collag- Mv-Min (Leeroy (With Collagen)) 1 PACKET Packet Discontinued 1 PACKET PO TWICE DAILY WITH MEALS August 06, 2015 6:34pm September 14, 2015 3:22pm Start: 08-06-2015 End: 09-14-2015 take 1 dose by mouth twice daily at mealtime Qurtj-Bmdu-Rpwho-Hqtbzt-Fe-Ndj (Le[place]oy (W ith Collagen)) 1 PACKET Packet Discontinued 1 NMA PO TWICE DAILY WITH MEALS 30 August 06, 2015 12:00am September 14, 2015 3:22pm Start: 08-06-2015 End: 09-14-2015 take 1 dose by mouth twice daily at mealtime Xxrpi-Fpcg-Ymcub-Xzxofz-Qk-Gok (Leeroy (W ith Collagen)) 1 PACKET Packet Discontinued 1 PACKET PO TWICE DAILY WITH MEALS August 05, 2015 11:00pm September 14, 2015 2:22pm Start: 08-06-2015 End: 09-14-2015 take 1 dose by mouth twice daily at mealtime Oucfe-Vacu-Bzdej-Ysrukp-Lg-Fmq (Leeroy (W ith Collagen)) 1 PACKET Packet Discontinued 1 PACKET PO TWICE DAILY WITH MEALS August 06, 2015 12:00am September 14, 2015 3:22pm Start: 05-05-2015 End: 05-13-2015 take 1 dose by mouth twice daily at mealtime Zordh-Ufay-Qncvf-Bvnxkq-Hc-Yqo (Leeroy (W ith Collagen)) 1 PACKET Packet Discontinued 1 PACKET PO TWICE DAILY WITH MEALS May 05, 2015 10:32am May 13, 2015 3:21pm Start: 05-05-2015 End: 05-13-2015 take 1 dose by mouth twice daily at mealtime Calwo-Pqdv-Scljx-Lzsnuy-Iz-Gyi (Leeroy (W ith Collagen)) 1 PACKET Packet Discontinued 1 NMA PO TWICE DAILY WITH MEALS May 05, 2015 1:00am May 13, 2015 3:21pm Start: 05-05-2015 End: 05-13-2015 take 1 dose by mouth twice daily at mealtime Ekddh-Ttdk-Ujuoz-Hqxtxc-Ts-Tcm (Leeroy (W ith Collagen)) 1 PACKET Packet Discontinued 1 PACKET PO TWICE DAILY WITH MEALS May 05, 2015 12:00am May 13, 2015 2:21pm Start: 05-05-2015 End: 05-13-2015 take 1 dose by mouth twice daily at mealtime Xeowr-Ndfo-Cqwlb-Llsycc-Ya-Hwd (Leeroy (W ith Collagen)) 1 PACKET Packet [...] Coronary arteriosclerosis; Translations: [Atherosclerotic heart disease of [place] coronary artery without angina pectoris] 12-07-2009 Chronic [...] nton 01-16-2025 Fluoro Guided Needle Placement Normal [facility] Operative Reporton Operative Report Normal [facility] Absolute lymphocyte countOrd ered By: Donmatias Yasmin on 12-27-2024 Lymphocytes Auto (Unsp spec) [#/Vol] 0.57 10*3/uL Low 0.83-4.51 [facility] Absolute neutrophil countOrd ered By: [facility] Hoffman on 12-27-2024 Neutrophils (Bld) [#/Vol] 7.3 10*3/uL 2.0-7.7 [facility] Anion gap in Serum or Plasma Ordered By: Ye Hoffman on 12-27-2024 Anion gap [Moles/Vol] 12 mmol/L 5-15 [facility] Automated lymphocyte count a s percentage of total leukocytesOrdered By: Ye Hoffman on 12-27-2024 Lymphocytes/100 WBC Auto (Unsp spec) 6.8 % Low 19-41 [facility] BUN/creatinine ratioOrdered By: [facility] Hospitalmatias Yasmin on 12-27-2024 Urea nitrogen/Creatinine [Mass ratio] 21.1 mg/mg High 10-20 [facility] Basophil percentageOrdered B y: Ye Hoffman on 12-27-2024 Basophils/100 WBC (Bld) 0.2 % 0-1 [facility] Bilirubin, totalOrdered By: Ye Hoffman on 12-27-2024 Bilirubin [Mass/Vol] 0.25 mg/dL 0.00-1.30 [facility] CBC W/Diff, Automatedon 12-03 Absolute Lymph 0.57 X10 3/uL Low 0.83-4.51 [facility] Comment on above: Performed By: #### L 100.0100 ####[facility] [address] [place], [address] Absolute Neut 7.3 X10 3/uL Normal 2.0-7.7 [facility] Comment on above: Performed By: #### L 100.0100 ####[facility] [address] [place], [address] Basophils/100 WBC (Bld) 0.2 % Normal 0-1 [facility] Comment on above: Performed By: #### L 100.0100 ####[facility] [address] [place], [address] Eosinophils/100 WBC (Bld) 1.0 % Normal 0-5 [facility] Comment on above: Performed By: #### L 100.0100 ####[facility] [address] [place], [address] Erythrocyte distribution width (RBC) [Ratio] 13.1 % Normal 11.6-14.6 [facility] Comment on above: Performed By: #### L 100.0100 ####[facility] [address] [place], [address] Hematocrit (Bld) [Volume fraction] 38.0 % Normal 37-47 [facility] Comment on above: Performed By: #### L 100.0100 ####[facility] [address] [place], [address] Hemoglobin (Bld) [Mass/Vol] 12.7 g/dL Normal 12.0-15.0 [facility] Comment on above: Performed By: #### L 100.0100 ####[facility] [address] [place], [address] IG% 0.400 Normal 0.0-0.9 [facility] Comment on above: Result Comment: IG% - Immature Granulocytes (promyelocytes, myelocytes andmetamyelocytes) > 1% indicates that a LEFT SHIFT is Present. Performed By: #### L 100.0100 ####[facility] [address] [place], [address] Lymphocytes/100 WBC (Bld) 6.8 % Low 19-41 [facility] Comment on above: Performed By: #### L 100.0100 ####[facility] [address] [place], [address] MCH (RBC) [Entitic mass] 32.8 pg High 27.0-32.0 [facility] Comment on above: Performed By: #### L 100.0100 ####[facility] [address] [place], [address] MCHC (RBC) [Mass/Vol] 33.4 g/dL Normal 32-36 [facility] Comment on above: Performed By: #### L 100.0100 ####[facility] [address] [place], [address] MCV (RBC) [Entitic vol] 98.2 fL Normal 81-99 [facility] Comment on above: Performed By: #### L 100.0100 ####[facility] [address] [place], [address] Monocytes/100 WBC (Bld) 4.9 % Normal 0-10 [facility] Comment on above: Performed By: #### L 100.0100 ####[facility] [address] [place], [address] Neutrophils/100 WBC (Bld) 86.7 % High 47-70 [facility] Comment on above: Performed By: #### L 100.0100 ####[facility] [address] [place], [address] Nucleated RBC (Bld) [#/Vol] 0 10*3/uL Normal 0-5 [facility] Comment on above: Performed By: #### L 100.0100 ####[facility] [address] [place], [address] Platelet mean volume (Bld) [Entitic vol] 10.7 fL Normal 6.2-12.0 [facility] Comment on above: Performed By: #### L 100.0100 ####[facility] [address] [place], [address] Platelets (Bld) [#/Vol] 184 10*3/uL Normal 150-450 [facility] Comment on above: Performed By: #### L 100.0100 ####[facility] [address] [place], [address] RBC (Bld) [#/Vol] 3.87 10*6/uL Low 4.2-5.4 [facility] Comment on above: Performed By: #### L 100.0100 ####[facility] [address] [place], [address] RDW SD 46.8 fl High 35.1-43.9 [facility] Comment on above: Performed By: #### L 100.0100 ####[facility] [address] [place], [address] WBC (Bld) [#/Vol] 8.4 10*3/uL Normal 4.4-11.0 [facility] Comment on above: Performed By: #### L 100.0100 ####[facility] [address] [place], [address] CBC-Complete Blood Cnt No Di ffon 12-27-2024 HCT Normal 37-47 [facility] Comment on above: Order Comment: Order Date: 12/27/24Order Info: [id number] - CBC Result Comment: WRMATIAS G Performed By: #### L 501.9985, L501.9520, L503.6550, L500.4050, L100.0500, L503.6030, L500.4100 ####[facility] [address] [place], [address] HGB Normal 12.0-15.0 [facility] Comment on above: Order Comment: Order Date: 12/27/24Order Info: [id number] - CBC Result Comment: WRON G Performed By: #### L 501.9985, L501.9520, L503.6550, L500.4050, L100.0500, L503.6030, L500.4100 ####[facility] [address] [place], [address] MCH Normal 27.0-32.0 [facility] Comment on above: Order Comment: Order Date: 12/27/24Order Info: [id number] - CBC Result Comment: WRON G Performed By: #### L 501.9985, L501.9520, L503.6550, L500.4050, L100.0500, L503.6030, L500.4100 ####[facility] [address] [place], [address] MCHC Normal 32-36 [facility] Comment on above: Order Comment: Order Date: 12/27/24Order Info: [id number] - CBC Result Comment: WRON G Performed By: #### L 501.9985, L501.9520, L503.6550, L500.4050, L100.0500, L503.6030, L500.4100 ####[facility] [address] [place], [address] MCV Normal 81-99 [facility] Comment on above: Order Comment: Order Date: 12/27/24Order Info: [id number] - CBC Result Comment: WRON G Performed By: #### L 501.9985, L501.9520, L503.6550, L500.4050, L100.0500, L503.6030, L500.4100 ####[facility] [address] [place], [address] PLT Normal 150-450 [facility] Comment on above: Order Comment: Order Date: 12/27/24Order Info: [id number] - CBC Result Comment: WRON G Performed By: #### L 501.9985, L501.9520, L503.6550, L500.4050, L100.0500, L503.6030, L500.4100 ####[facility] [address] [place], [address] RBC Normal 4.2-5.4 [facility] Comment on above: Order Comment: Order Date: 12/27/24Order Info: [id number] - CBC Result Comment: WRON G Performed By: #### L 501.9985, L501.9520, L503.6550, L500.4050, L100.0500, L503.6030, L500.4100 ####[facility] [address] [place], [address] RDW CV Normal 11.6-14.6 [facility] Comment on above: Order Comment: Order Date: 12/27/24Order Info: [id number] - CBC Result Comment: WRON G Performed By: #### L 501.9985, L501.9520, L503.6550, L500.4050, L100.0500, L503.6030, L500.4100 ####[facility] [address] [place], [address] RDW SD Normal 35.1-43.9 [facility] Comment on above: Order Comment: Order Date: 12/27/24Order Info: [id number] - CBC Result Comment: WRON G Performed By: #### L 501.9985, L501.9520, L503.6550, L500.4050, L100.0500, L503.6030, L500.4100 ####[facility] [address] [place], [address] WBC Normal 4.4-11.0 [facility] Comment on above: Order Comment: Order Date: 12/27/24Order Info: [id number] - CBC Result Comment: WRON G Performed By: #### L 501.9985, L501.9520, L503.6550, L500.4050, L100.0500, L503.6030, L500.4100 ####[facility] [address] [place], [place], [address] Calculated very low density lipoprotein (VLDL) cholesterol measurementOrdered By: Ye Hoffman on 12-27-2024 Calculated very low density lipoprotein (VLDL) cholesterol measurement 10 mg/dL 5-40 [facility] Carbon dioxide, total [Moles /volume] in Central venous bloodOrdered By: Ye Hoffman on 12-27-2024 CO2 [Moles/Vol] 26.0 mmol/L 21.0-32.0 [facility] Chloride assayOrdered By: Juliocesar Hoffman on 12-27-2024 Chloride [Moles/Vol] 101 mmol/L 98-108 [facility] Comprehensive Metabolic Prof ilon 12-27-2024 Albumin [Mass/Vol] 4.2 g/dL Normal 3.4-4.8 [facility] Comment on above: Order Comment: Order Date: 12/27/24Order Info: [id number] - CMPOrder Info: [id number] - LIPIDOrder Info: [id number] - TSHOrder Info: [id number] - IBCOrder Info: [id number] - MEG Performed By: #### L 501.9985, L501.9520, L503.6550, L500.4050, L100.0500, L503.6030, L500.4100 ####[facility] [address] [place], [place], [address] Albumin/Globulin [Mass ratio] 1.6 {ratio} Normal 0.9-2.4 [facility] Comment on above: Order Comment: Order Date: 12/27/24Order Info: [id number] - CMPOrder Info: [id number] - LIPIDOrder Info: [id number] - TSHOrder Info: [id number] - IBCOrder Info: [id number] - MEG Performed By: #### L 501.9985, L501.9520, L503.6550, L500.4050, L100.0500, L503.6030, L500.4100 ####[facility] [address] [place], [address] ALK PHOS 48 U/L Normal 35-104 [facility] Comment on above: Order Comment: Order Date: 12/27/24Order Info: [id number] - CMPOrder Info: [id number] - LIPIDOrder Info: [id number] - TSHOrder Info: [id number] - IBCOrder Info: [id number] - MEG Performed By: #### L 501.9985, L501.9520, L503.6550, L500.4050, L100.0500, L503.6030, L500.4100 ####[facility] [address] [place], [address] ALT [Catalytic activity/Vol] 12 U/L Normal <=34 [facility] Comment on above: Order Comment: Order Date: 12/27/24Order Info: [id number] - CMPOrder Info: [id number] - LIPIDOrder Info: 3 - TSHOrder Info: [id number] - IBCOrder Info: 4 - MEG Performed By: #### L 501.9985, L501.9520, L503.6550, L500.4050, L100.0500, L503.6030, L500.4100 ####[facility] [address] [place], [address] AST [Catalytic activity/Vol] 21 U/L Normal <=31 [facility] Comment on above: Order Comment: Order Date: 12/27/24Order Info: [id number] - CMPOrder Info: [id number] - LIPIDOrder Info: [id number] - TSHOrder Info: [id number] - IBCOrder Info: [id number] - MEG Performed By: #### L 501.9985, L501.9520, L503.6550, L500.4050, L100.0500, L503.6030, L500.4100 ####[facility] [address] [place], [address] Bilirubin [Mass/Vol] 0.25 mg/dL Normal 0.00-1.30 [facility] Comment on above: Order Comment: Order Date: 12/27/24Order Info: [id number] - CMPOrder Info: [id number] - LIPIDOrder Info: 6-3 - TSHOrder Info: [id number] - IBCOrder Info: [id number] - MEG Performed By: #### L 501.9985, L501.9520, L503.6550, L500.4050, L100.0500, L503.6030, L500.4100 ####[facility] [address] [place], [address] BUN/CRE 21.1 RATIO High 10-20 [facility] Comment on above: Order Comment: Order Date: 12/27/24Order Info: [id number] - CMPOrder Info: [id number] - LIPIDOrder Info: 3 - TSHOrder Info: [id number] - IBCOrder Info: [id number] - MEG Performed By: #### L 501.9985, L501.9520, L503.6550, L500.4050, L100.0500, L503.6030, L500.4100 ####[facility] [address] [place], [address] Calcium [Mass/Vol] 9.2 mg/dL Normal 7.6-11.0 [facility] Comment on above: Order Comment: Order Date: 12/27/24Order Info: [id number] - CMPOrder Info: [id number] - LIPIDOrder Info: 6-3 - TSHOrder Info: [id number] - IBCOrder Info: [id number] - MEG Performed By: #### L 501.9985, L501.9520, L503.6550, L500.4050, L100.0500, L503.6030, L500.4100 ####[facility] [address] [place], [address] Chloride [Moles/Vol] 101 mmol/L Normal 98-108 [facility] Comment on above: Order Comment: Order Date: 12/27/24Order Info: [id number] - CMPOrder Info: [id number] - LIPIDOrder Info: [id number] - TSHOrder Info: [id number] - IBCOrder Info: [id number] - MEG Performed By: #### L 501.9985, L501.9520, L503.6550, L500.4050, L100.0500, L503.6030, L500.4100 ####[facility] [address] [place], [address] CO2 [Moles/Vol] 26.0 mmol/L Normal 21.0-32.0 [facility] Comment on above: Order Comment: Order Date: 12/27/24Order Info: [id number] - CMPOrder Info: [id number] - LIPIDOrder Info: 3 - TSHOrder Info: [id number] - IBCOrder Info: [id number] - MEG Performed By: #### L 501.9985, L501.9520, L503.6550, L500.4050, L100.0500, L503.6030, L500.4100 ####[facility] [address] [place], [place], [phone] Creatinine [Mass/Vol] 0.42 mg/dL Low 0.70-1.20 [facility] Comment on above: Order Comment: Order Date: 12/27/24Order Info: [id number] - CMPOrder Info: [id number] - LIPIDOrder Info: 3 - TSHOrder Info: [id number] - IBCOrder Info: [id number] - MEG Performed By: #### L 501.9985, L501.9520, L503.6550, L500.4050, L100.0500, L503.6030, L500.4100 ####[facility] [address] [place], [address] GAP 12 Normal 5-15 [facility] Comment on above: Order Comment: Order Date: 12/27/24Order Info: [id number]- - CMPOrder Info: - LIPIDOrder Info: [id number] - TSHOrder Info: [id number] - IBCOrder Info: [id number] - MEG Performed By: #### L 501.9985, L501.9520, L503.6550, L500.4050, L100.0500, L503.6030, L500.4100 ####[facility] [address] [place], [place], [address] GFR/1.73 sq M.predicted among non-blacks MDRD (S/P/Bld) [Vol rate/Area] 103 mL/min/{1.73_m2} Normal >60 [facility] Comment on above: Order Comment: Order Date: 12/27/24Order Info: [id number] - CMPOrder Info: - LIPIDOrder Info: [id number] - TSHOrder Info: - IBCOrder Info: [id number] - MEG Result Comment: mL/m in/1.73m2 CKD-EPI Creatinine Equation (2020) Performed By: #### L 501.9985, L501.9520, L503.6550, L500.4050, L100.0500, L503.6030, L500.4100 ####[facility] [address] [place], [place], [phone] Globulin (S) [Mass/Vol] 2.6 g/dL Normal 2.2-4.2 [facility] Comment on above: Order Comment: Order Date: 12/27/24Order Info: [id number] - CMPOrder Info: - LIPIDOrder Info: [id number] - TSHOrder Info: [id number] - IBCOrder Info: [id number] - MEG Performed By: #### L 501.9985, L501.9520, L503.6550, L500.4050, L100.0500, L503.6030, L500.4100 ####[facility] [address] [place], [address] Glucose [Mass/Vol] 85 mg/dL Normal 70-99 [facility] Comment on above: Order Comment: Order Date: 12/27/24Order Info: [id number] - CMPOrder Info: [id number] - LIPIDOrder Info: 6-3 - TSHOrder Info: [id number] - IBCOrder Info: [id number] - MEG Performed By: #### L 501.9985, L501.9520, L503.6550, L500.4050, L100.0500, L503.6030, L500.4100 ####[facility] [address] [place], [address] Potassium [Moles/Vol] 3.7 mmol/L Normal 3.3-5.1 [facility] Comment on above: Order Comment: Order Date: 12/27/24Order Info: [id number] - CMPOrder Info: [id number] - LIPIDOrder Info: 3 - TSHOrder Info: [id number] - IBCOrder Info: 4 - MEG Performed By: #### L 501.9985, L501.9520, L503.6550, L500.4050, L100.0500, L503.6030, L500.4100 ####[facility] [address] [place], [address] Sodium [Moles/Vol] 139 mmol/L Normal 133-145 [facility] Comment on above: Order Comment: Order Date: 12/27/24Order Info: [id number] - CMPOrder Info: [id number] - LIPIDOrder Info: [id number] - TSHOrder Info: [id number] - IBCOrder Info: [id number] - MEG Performed By: #### L 501.9985, L501.9520, L503.6550, L500.4050, L100.0500, L503.6030, L500.4100 ####[facility] [address] [place], [place], [id number] T PROT 6.8 g/dL Normal 5.9-8.4 [facility] Comment on above: Order Comment: Order Date: 12/27/24Order Info: [id number] - CMPOrder Info: [id number] - LIPIDOrder Info: [id number] - TSHOrder Info: [id number] - IBCOrder Info: [id number] - MEG Performed By: #### L 501.9985, L501.9520, L503.6550, L500.4050, L100.0500, L503.6030, L500.4100 ####[facility] [address] [place], [place], [id number] Urea nitrogen [Mass/Vol] 9 mg/dL Normal 4-19 [facility] Comment on above: Order Comment: Order Date: 12/27/24Order Info: [id number] - CMPOrder Info: [id number] - LIPIDOrder Info: [id number] - TSHOrder Info: [id number] - IBCOrder Info: [id number] - MEG Performed By: #### L 501.9985, L501.9520, L503.6550, L500.4050, L100.0500, L503.6030, L500.4100 ####[facility] [address] [place], [place], [address] Eosinophil percentageOrdered By: Ye Hoffman on 12-27-2024 Eosinophils/100 WBC (Bld) 1.0 % 0-5 [facility] Erythrocyte distribution wid th ratioOrdered By: Ye Hoffman on 12-27-2024 Erythrocyte distribution width (RBC) [Ratio] 13.1 % 11.6-14.6 [facility] Erythrocyte distribution wid th standard deviationOrdered By: Ye Hoffman on 12-27-2024 Erythrocyte distribution width (RBC) [Ratio] 46.8 fl High 35.1-43.9 [facility] Ferritinon 12-27-2024 Ferritin [Mass/Vol] 30 ng/mL Normal 22-378 [facility] Comment on above: Order Comment: Order Date: 12/27/24Order Info: [id number] - CMPOrder Info: [id number] - LIPIDOrder Info: [id number] - TSHOrder Info: [id number] - IBCOrder Info: [id number] - MEG Performed By: #### L 501.9985, L501.9520, L503.6550, L500.4050, L100.0500, L503.6030, L500.4100 ####[facility] [address] [place], [address] Glomerular filtration rate ( GFR) estimation/1.73 sq m using serum, plasma, or whole bOrdered By: Ye Hoffman on 12-27-2024 GFR/1.73 sq M.predicted among non-blacks MDRD (S/P/Bld) [Vol rate/Area] 103 mL/min/{1.73_m2} >60 [facility] Comment on above: mL/min/1.73m2 CKD-EP I Creatinine Equation (2020) Hematocrit Auto (Bld) [Volum e fraction]Ordered By: Ye Hoffman on 12-27-2024 Hematocrit (Bld) [Volume fraction] 38.0 % 37-47 [facility] Hemoglobin A1con 12-27-2024 HbA1c (Bld) [Mass fraction] 4.7 % Normal <=5.6 [facility] Comment on above: Order Comment: Order Date: 12/27/24Order Info: [id number] - A1C Result Comment: Norm al < 5.7 % Prediabetic 5.7 - 6.4 % Diabetic >or= 6.5 % Please note range changes. Performed By: #### L 501.9985, L501.9520, L503.6550, L500.4050, L100.0500, L503.6030, L500.4100 ####[facility] [address] [place], [address] Hemoglobin A1c percentageOrd ered By: Ye Hoffman on 12-27-2024 HbA1c (Bld) [Mass fraction] 4.7 % <5.7 [facility] Comment on above: Normal < 5.7 % Predi abetic 5.7 - 6.4 % Diabetic >or= 6.5 % Please note range changes. Hemoglobin measurementOrdere d By: Ye Hoffman on 12-27-2024 Hemoglobin (Bld) [Mass/Vol] 12.7 g/dL 12.0-15.0 [facility] Immature granulocytes/100 WB C Auto (Bld)Ordered By: Ye Hoffman on 12-27-2024 Immature granulocytes/100 WBC (Bld) 0.400 % 0.0-0.9 [facility] Comment on above: IG% - Immature Granu locytes (promyelocytes, myelocytes and metamyelocytes) > 1% indicates that a LEFT SHIFT is Present. Iron measurement (mass/mass) Ordered By: Ye Hoffman on 12-27-2024 Iron (Unsp spec) [Mass/Mass] 68 ug/dL 50-170 [facility] Iron+Iron Binding Capacityon 12-27-2024 Iron [Mass/Vol] 68 ug/dL Normal 50-170 [facility] Comment on above: Order Comment: Order Date: 12/27/24Order Info: [id number] - CMPOrder Info: [id number] - LIPIDOrder Info: [id number] - TSHOrder Info: [id number] - IBCOrder Info: [id number] - MEG Performed By: #### L 501.9985, L501.9520, L503.6550, L500.4050, L100.0500, L503.6030, L500.4100 ####[facility] [address] [place], [place], [id number] IRON SATURATION 28.0 Normal 13-59 [facility] Comment on above: Order Comment: Order Date: 12/27/24Order Info: [id number] - CMPOrder Info: [id number] - LIPIDOrder Info: [id number] - TSHOrder Info: [id number] - IBCOrder Info: [id number] - MEG Performed By: #### L 501.9985, L501.9520, L503.6550, L500.4050, L100.0500, L503.6030, L500.4100 ####[facility] [address] [place], [address] TIBC 245 ug/dL Low 250-450 [facility] Comment on above: Order Comment: Order Date: 12/27/24Order Info: [id number] - CMPOrder Info: [id number] - LIPIDOrder Info: [id number] - TSHOrder Info: [id number] - IBCOrder Info: [id number] - MEG Performed By: #### L 501.9985, L501.9520, L503.6550, L500.4050, L100.0500, L503.6030, L500.4100 ####[facility] [address] [place], [address] UIBC 177 ug/dL Low 228-428 [facility] Comment on above: Order Comment: Order Date: 12/27/24Order Info: [id number] - CMPOrder Info: [id number] - LIPIDOrder Info: [id number] - TSHOrder Info: [id number] - IBCOrder Info: [id number] - MEG Performed By: #### L 501.9985, L501.9520, L503.6550, L500.4050, L100.0500, L503.6030, L500.4100 ####[facility] [address] [place], [place], [address] LDL calc ser/plasOrdered By: Ye Hoffman on 12-27-2024 Cholesterol in LDL [Mass/Vol] 77 mg/dL [facility] Comment on above: Ownqekiwdm=377-495 m g/dL & Higher Tunb=181 mg/dL or greaterFriedwald Equation for LDL-C Laboratory - Chemistry and C hemistry - challengeOrdered By: Ye Hoffman on 12-27-2024 AST [Catalytic activity/Vol] 21 U/L <32 [facility] Lipid Profileon 12-27-2024 CHOL:HDL 2.05 Normal [facility] Comment on above: Order Comment: Order Date: 12/27/24Order Info: [id number] - CMPOrder Info: [id number] - LIPIDOrder Info: [id number] - TSHOrder Info: [id number] - IBCOrder Info: [id number] - MEG Performed By: #### L 501.9985, L501.9520, L503.6550, L500.4050, L100.0500, L503.6030, L500.4100 ####[facility] [address] [place], [address] Cholesterol [Mass/Vol] 170 mg/dL Normal <=200 [facility] Comment on above: Order Comment: Order Date: 12/27/24Order Info: [id number] - CMPOrder Info: [id number] - LIPIDOrder Info: [id number] - TSHOrder Info: [id number] - IBCOrder Info: [id number] - MEG Result Comment: Chol esterol level, Desirable <200 mg/dLBorderline high cholesterol 200-239 mg/dLHigh cholesterol >=240 mg/dLRecommendations of the NCEP Adult Treatment Panel for thefollowing risk-cutoff thresholds for the [place] [facility]. Performed By: #### L 501.9985, L501.9520, L503.6550, L500.4050, L100.0500, L503.6030, L500.4100 ####[facility] [address] [place], [address] Cholesterol in HDL [Mass/Vol] 83 mg/dL Normal [facility] Comment on above: Order Comment: Order Date: 12/27/24Order Info: [id number] - CMPOrder Info: [id number] - LIPIDOrder Info: [id number] - TSHOrder Info: [id number] - IBCOrder Info: [id number] - MEG Result Comment: Sangeeta onal Cholesterol Education Program (NCEP) guidelines:<40 mg/dL: Low HDL-cholesterol (major risk factor for CHD)>= 60 mg/dL: High HDL-cholesterol (negative risk factor forCHD)HDL-cholesterol is affected by a number of factors, e.g.smoking, exercise, hormones, sex and age. Performed By: #### L 501.9985, L501.9520, L503.6550, L500.4050, L100.0500, L503.6030, L500.4100 ####[facility] [address] [place], [address] Cholesterol in LDL [Mass/Vol] 77 mg/dL Normal [facility] Comment on above: Order Comment: Order Date: 12/27/24Order Info: [id number] - CMPOrder Info: [id number] - LIPIDOrder Info: [id number] - TSHOrder Info: [id number] - IBCOrder Info: [id number] - MEG Result Comment: Bord vlxsqt=443-973 mg/dL Higher Jsbz=993 mg/dL or greaterFriedwald Equation for LDL-C Performed By: #### L 501.9985, L501.9520, L503.6550, L500.4050, L100.0500, L503.6030, L500.4100 ####[facility] [address] [place], [address] Cholesterol in VLDL [Mass/Vol] 10 mg/dL Normal 5-40 [facility] Comment on above: Order Comment: Order Date: 12/27/24Order Info: [id number] - CMPOrder Info: [id number] - LIPIDOrder Info: [id number] - TSHOrder Info: [id number] - IBCOrder Info: [id number] - MEG Performed By: #### L 501.9985, L501.9520, L503.6550, L500.4050, L100.0500, L503.6030, L500.4100 ####[facility] [address] [place], [address] Triglyceride [Mass/Vol] 51 mg/dL Normal [facility] Comment on above: Order Comment: Order Date: 12/27/24Order Info: [id number] - CMPOrder Info: [id number] - LIPIDOrder Info: [id number] - TSHOrder Info: [id number] - IBCOrder Info: [id number] - MEG Result Comment: The drugs N-Acetylcysteine and Metamizole may falselydepress this assay.Normal range: <150 mg/dLBorderline High: 150-199 mg/dLHigh: 200-499 mg/dLVery High: >500 mg/dL Performed By: #### L 501.9985, L501.9520, L503.6550, L500.4050, L100.0500, L503.6030, L500.4100 ####[facility] [address] [place], [address] MCV (mean corpuscular volume ) determinationOrdered By: Ye Hoffman on 12-27-2024 MCV (RBC) [Entitic vol] 98.2 fL 81-99 [facility] Mean corpuscular hemoglobin (MCH) determinationOrdered By: Ye Hoffman on 12-27-2024 MCH (RBC) [Entitic mass] 32.8 pg High 27.0-32.0 [facility] Mean corpuscular hemoglobin concentration (MCHC) determinationOrdered By: Ye Hoffman on 12-27-2024 MCHC (RBC) [Mass/Vol] 33.4 g/dL 32-36 [facility] Mean platelet volume determi nationOrdered By: Ye Hoffman on 12-27-2024 Platelet mean volume (Bld) [Entitic vol] 10.7 fL 6.2-12.0 [facility] Monocyte percentageOrdered B y: Ye Hoffman on 12-27-2024 Monocytes/100 WBC (Bld) 4.9 % 0-10 [facility] Neutrophil percentageOrdered By: Ye Hoffman on 12-27-2024 Neutrophils/100 WBC (Bld) 86.7 % High 47-70 [facility] No Panel InformationOrdered By: Ye Hoffman on 12-27-2024 Unsaturated Iron Binding Capacity 177 ug/dL Low 228-428 [facility] Nucleated red blood cell per centageOrdered By: Ye Hoffman on 12-27-2024 Nucleated RBC/100 WBC (Bld) [Ratio] 0 % 0-5 [facility] Platelet countOrdered By: Juliocesar Hoffman on 12-27-2024 Platelets (Bld) [#/Vol] 184 10*3/uL 150-450 [facility] Potassium measurement (mass/ volume)Ordered By: Ye Hoffman on 12-27-2024 Potassium (Unsp spec) [Mass/Vol] 3.7 mmol/L 3.3-5.1 [facility] RBC Auto (Bld) [#/Vol]Ordere d By: Ye Hoffman on 12-27-2024 RBC (Bld) [#/Vol] 3.87 10*6/uL Low 4.2-5.4 [facility] Screening total cholesterol/ high density lipoprotein (HDL) cholesterol ratioOrdered By: Ye Hoffman on 12-27-2024 Cholesterol.total/Cholest jamie in HDL [Mass ratio] 2.05 {ratio} [facility] Serum creatinine measurement (mass/volume)Ordered By: Ye Hoffman on 12-27-2024 Creatinine [Mass/Vol] 0.42 mg/dL Low 0.70-1.20 [facility] Serum globulin measurementOr dered By: Ye Hoffman on 12-27-2024 Globulin (S) [Mass/Vol] 2.6 g/dL 2.2-4.2 [facility] Serum glucose measurement (m ass/volume)Ordered By: Ye Hoffman on 12-27-2024 Glucose [Mass/Vol] 85 mg/dL 70-99 [facility] Serum or plasma alanine driver otransferase (ALT) measurementOrdered By: Ye Hoffman on 12-27-2024 ALT [Catalytic activity/Vol] 12 U/L <35 [facility] Serum or plasma albumin cedric urement (mass/volume)Ordered By: Ye Hoffman on 12-27-2024 Albumin [Mass/Vol] 4.2 g/dL 3.4-4.8 [facility] Serum or plasma albumin/glob ulin mass ratioOrdered By: Ye Hoffman on 12-27-2024 Albumin/Globulin [Mass ratio] 1.6 {ratio} 0.9-2.4 [facility] Serum or plasma alkaline judy sphatase measurementOrdered By: Ye Hoffman on 12-27-2024 ALP [Catalytic activity/Vol] 48 U/L 35-104 [facility] Serum or plasma calcium cedric urement (mass/volume)Ordered By: Ye Hoffman on 12-27-2024 Calcium [Mass/Vol] 9.2 mg/dL 7.6-11.0 [facility] Serum or plasma cholesterol in HDL measurement (mass/volume)Ordered By: Ye Hoffman on 12-27-2024 Cholesterol in HDL [Mass/Vol] 83 mg/dL >40 [facility] Comment on above: National Cholesterol Education Program (NCEP) guidelines:<40 mg/dL: Low HDL-cholesterol (major risk factor for CHD)>= 60 mg/dL: High HDL-cholesterol (negative risk factor for CHD)HDL-cholesterol is affected by a number of factors, e.g. smoking, exercise, hormones, sex and age. Serum or plasma cholesterol measurement (mass/volume)Ordered By: Ye Hoffman on 12-27-2024 Cholesterol [Mass/Vol] 170 mg/dL <201 [facility] Comment on above: Cholesterol level, D esirable <200 mg/dLBorderline high cholesterol 200-239 mg/dLHigh cholesterol >=240 mg/dLRecommendations of the NCEP Adult Treatment Panel for the following risk-cutoff thresholds for the [place] population. Serum or plasma ferritin pineda surement (mass/volume)Ordered By: Ye Hoffman on 12-27-2024 Ferritin [Mass/Vol] 30 ng/mL 22-378 [facility] Serum or plasma iron saturat ion measurement (mass fraction)Ordered By: Ye Hoffman on 12-27-2024 Iron saturation [Mass fraction] 28.0 % 13-59 [facility] Serum or plasma urea nitroge n measurement (mass/volume)Ordered By: Ye Hoffman on 12-27-2024 Urea nitrogen [Mass/Vol] 9 mg/dL 4-19 [facility] Sodium levelOrdered By: Don Hoffman on 12-27-2024 Sodium [Moles/Vol] 139 mmol/L 133-145 [facility] TSH DL <= 0.005 mIU/L QnOrde red By: Ye Hoffman on 12-27-2024 TSH Qn 2.020 uIU/mL 0.300-4.200 [facility] Thyroid Stim Hormone (TSH)on 12-27-2024 TSH 2.020 uIU/mL Normal 0.300-4.200 [facility] Comment on above: Order Comment: Order Date: 12/27/24Order Info: [id number] - CMPOrder Info: [id number] - LIPIDOrder Info: [id number] - TSHOrder Info: [id number] - IBCOrder Info: [id number] - MEG Performed By: #### L 501.9985, L501.9520, L503.6550, L500.4050, L100.0500, L503.6030, L500.4100 ####[facility] [address] [place], [address] Total proteinOrdered By: Nona Hoffman on 12-27-2024 Protein [Mass/Vol] 6.8 g/dL 5.9-8.4 [facility] Triglycerides measurementOrd ered By: Ye Hoffman on 12-27-2024 Triglyceride [Mass/Vol] 51 mg/dL <199 [facility] Comment on above: The drugs N-Acetylcy steine and Metamizole may falsely depress this assay. Normal range: <150 mg/dLBorderline High: 150-199 mg/dLHigh: 200-499 mg/dLVery High: >500 mg/dL White blood cell (WBC) count Ordered By: Ye Hoffman on 12-27-2024 WBC (Bld) [#/Vol] 8.4 10*3/uL 4.4-11.0 [facility] Absolute lymphocyte countOrd ered By: Sukumar Velazquez on 07-21-2024 Lymphocytes Auto (Unsp spec) [#/Vol] 1.05 10*3/uL 0.83-4.51 [facility] Absolute neutrophil countOrd ered By: Sukumar Velazquez on 07-21-2024 Neutrophils (Bld) [#/Vol] 1.8 10*3/uL Low 2.0-7.7 [facility] Anion gap in Serum or Plasma Ordered By: Sukumar Velazquez on 07-21-2024 Anion gap [Moles/Vol] 9 mmol/L 5-15 [facility] Automated lymphocyte count a s percentage of total leukocytesOrdered By: Sukumar Velazquez on 07-21-2024 Lymphocytes/100 WBC Auto (Unsp spec) 28.5 % 19-41 [facility] BUN/creatinine ratioOrdered By: Mayajeffrydeedeesoumya Stauffercobyissa on 07-21-2024 Urea nitrogen/Creatinine [Mass ratio] 47.2 mg/mg High 10-20 [facility] Basophil percentageOrdered B y: Seradeedeesoumya Stauffercobyissa on 07-21-2024 Basophils/100 WBC (Bld) 0.5 % 0-1 [facility] Carbon dioxide, total [Moles /volume] in Central venous bloodOrdered By: jeffrydeedeesoumya Stauffercobyissa on 07-21-2024 CO2 [Moles/Vol] 26.1 mmol/L 21.0-32.0 [facility] Chloride assayOrdered By: Maya bridgersoumya Stauffercobyissa on 07-21-2024 Chloride [Moles/Vol] 102 mmol/L 98-108 [facility] Eosinophil percentageOrdered By: Mayajeffrylouisvillesoumya Stauffercobyissa on 07-21-2024 Eosinophils/100 WBC (Bld) 7.6 % High 0-5 [facility] Erythrocyte distribution wid th ratioOrdered By: jeffrylouisvillesoumya Ehcobyissa on 07-21-2024 Erythrocyte distribution width (RBC) [Ratio] 12.1 % 11.6-14.6 [facility] Erythrocyte distribution wid th standard deviationOrdered By: [facility] Centersoumya Ehcobyissa on 07-21-2024 Erythrocyte distribution width (RBC) [Ratio] 43.4 fl 35.1-43.9 [facility] Glomerular filtration rate ( GFR) estimation/1.73 sq m using serum, plasma, or whole bOrdered By: Sukumar Velazquez on 07-21-2024 GFR/1.73 sq M.predicted among non-blacks MDRD (S/P/Bld) [Vol rate/Area] 99 mL/min/{1.73_m2} >60 [facility] Comment on above: mL/min/1.73m2 CKD-EP I Creatinine Equation (2020) Hematocrit Auto (Bld) [Volum e fraction]Ordered By: Sukumar Velazquez on 07-21-2024 Hematocrit (Bld) [Volume fraction] 36.2 % Low 37-47 [facility] Hemoglobin measurementOrdere d By: Sukumar Velazquez on 07-21-2024 Hemoglobin (Bld) [Mass/Vol] 12.1 g/dL 12.0-15.0 [facility] Immature granulocytes/100 WB C Auto (Bld)Ordered By: Sukumar Velazquez on 07-21-2024 Immature granulocytes/100 WBC (Bld) 0.300 % 0.0-0.9 [facility] Comment on above: IG% - Immature Granu locytes (promyelocytes, myelocytes and metamyelocytes) > 1% indicates that a LEFT SHIFT is Present. MCV (mean corpuscular volume ) determinationOrdered By: Sukumar Velazquez on 07-21-2024 MCV (RBC) [Entitic vol] 96.8 fL 81-99 [facility] Mean corpuscular hemoglobin (MCH) determinationOrdered By: Seralouisvillesoumya Velazquez on 07-21-2024 MCH (RBC) [Entitic mass] 32.4 pg High 27.0-32.0 [facility] Mean corpuscular hemoglobin concentration (MCHC) determinationOrdered By: jeffrylouisvillesoumya Velazquez on 07-21-2024 MCHC (RBC) [Mass/Vol] 33.4 g/dL 32-36 [facility] Mean platelet volume determi nationOrdered By: Sukumar Velazquez on 07-21-2024 Platelet mean volume (Bld) [Entitic vol] 10.6 fL 6.2-12.0 [facility] Monocyte percentageOrdered B y: Sukumar Velazquez on 07-21-2024 Monocytes/100 WBC (Bld) 13.3 % High 0-10 [facility] Neutrophil percentageOrdered By: rosie Velazquez on 07-21-2024 Neutrophils/100 WBC (Bld) 49.8 % 47-70 [facility] Nucleated red blood cell per centageOrdered By: Sukumar Velazquez on 07-21-2024 Nucleated RBC/100 WBC (Bld) [Ratio] 0 % 0-5 [facility] Platelet countOrdered By: Maya Velazquez on 07-21-2024 Platelets (Bld) [#/Vol] 195 10*3/uL 150-450 [facility] Potassium measurement (mass/ volume)Ordered By: Sukumar Velazquez on 07-21-2024 Potassium (Unsp spec) [Mass/Vol] 4.4 mmol/L 3.3-5.1 [facility] RBC Auto (Bld) [#/Vol]Ordere d By: Sukumar Velazquez on 07-21-2024 RBC (Bld) [#/Vol] 3.74 10*6/uL Low 4.2-5.4 [facility] Serum creatinine measurement (mass/volume)Ordered By: Sukumar Velazquez on 07-21-2024 Creatinine [Mass/Vol] 0.50 mg/dL Low 0.70-1.20 [facility] Serum glucose measurement (m ass/volume)Ordered By: Sukumar Velazquez on 07-21-2024 Glucose [Mass/Vol] 96 mg/dL 70-99 [facility] Serum or plasma calcium cedric urement (mass/volume)Ordered By: Sukumar Velazquez on 07-21-2024 Calcium [Mass/Vol] 9.2 mg/dL 7.6-11.0 [facility] Serum or plasma urea nitroge n measurement (mass/volume)Ordered By: Sukumar Velazquez on 07-21-2024 Urea nitrogen [Mass/Vol] 24 mg/dL High 4-19 [facility] Sodium levelOrdered By: Sera Velazquez on 07-21-2024 Sodium [Moles/Vol] 137 mmol/L 133-145 [facility] White blood cell (WBC) count Ordered By: Sukumar Velazquez on 07-21-2024 WBC (Bld) [#/Vol] 3.7 10*3/uL Low 4.4-11.0 [facility] Wound Ctr History AND Physic bret 07-18-2024 Wound Ctr History & Physical Normal [facility] Absolute lymphocyte countOrd ered By: Sukumar Velazquez on 07-14-2024 Lymphocytes Auto (Unsp spec) [#/Vol] 0.89 10*3/uL 0.83-4.51 [facility] Absolute neutrophil countOrd ered By: Sukumar Velazquez on 07-14-2024 Neutrophils (Bld) [#/Vol] 2.0 10*3/uL 2.0-7.7 [facility] Anion gap in Serum or Plasma Ordered By: Sukumar Velazquez on 07-14-2024 Anion gap [Moles/Vol] 8 mmol/L 5-15 [facility] Automated lymphocyte count a s percentage of total leukocytesOrdered By: Sukumar Velazquez on 07-14-2024 Lymphocytes/100 WBC Auto (Unsp spec) 24.7 % 19-41 [facility] BUN/creatinine ratioOrdered By: Sukumar Velazquez on 07-14-2024 Urea nitrogen/Creatinine [Mass ratio] 65.0 mg/mg High 10-20 [facility] Basophil percentageOrdered B y: Sukumar Velazquez on 07-14-2024 Basophils/100 WBC (Bld) 0.3 % 0-1 [facility] Carbon dioxide, total [Moles /volume] in Central venous bloodOrdered By: Sukumar Velazquez on 07-14-2024 CO2 [Moles/Vol] 27.5 mmol/L 21.0-32.0 [facility] Chloride assayOrdered By: Maya Velazquez on 07-14-2024 Chloride [Moles/Vol] 103 mmol/L 98-108 [facility] Eosinophil percentageOrdered By: Sukumar Velazquez on 07-14-2024 Eosinophils/100 WBC (Bld) 6.4 % High 0-5 [facility] Erythrocyte distribution wid th ratioOrdered By: Sukumar Velazquez on 07-14-2024 Erythrocyte distribution width (RBC) [Ratio] 12.5 % 11.6-14.6 [facility] Erythrocyte distribution wid th standard deviationOrdered By: rosie Velazquez on 07-14-2024 Erythrocyte distribution width (RBC) [Ratio] 44.9 fl High 35.1-43.9 [facility] Glomerular filtration rate ( GFR) estimation/1.73 sq m using serum, plasma, or whole bOrdered By: Sukumar Velazquez on 07-14-2024 GFR/1.73 sq M.predicted among non-blacks MDRD (S/P/Bld) [Vol rate/Area] 100 mL/min/{1.73_m2} >60 [facility] Comment on above: mL/min/1.73m2 CKD-EP I Creatinine Equation (2020) Hematocrit Auto (Bld) [Volum e fraction]Ordered By: Sukumar Velazquez on 07-14-2024 Hematocrit (Bld) [Volume fraction] 36.6 % Low 37-47 [facility] Hemoglobin measurementOrdere d By: Sukumar Velazquez on 07-14-2024 Hemoglobin (Bld) [Mass/Vol] 12.0 g/dL 12.0-15.0 [facility] Immature granulocytes/100 WB C Auto (Bld)Ordered By: Sukumar Velazquez on 07-14-2024 Immature granulocytes/100 WBC (Bld) 0.300 % 0.0-0.9 [facility] Comment on above: IG% - Immature Granu locytes (promyelocytes, myelocytes and metamyelocytes) > 1% indicates that a LEFT SHIFT is Present. MCV (mean corpuscular volume ) determinationOrdered By: Sukumar Velazquez on 07-14-2024 MCV (RBC) [Entitic vol] 97.9 fL 81-99 [facility] Mean corpuscular hemoglobin (MCH) determinationOrdered By: Sukumar Velazquez on 07-14-2024 MCH (RBC) [Entitic mass] 32.1 pg High 27.0-32.0 [facility] Mean corpuscular hemoglobin concentration (MCHC) determinationOrdered By: Sukumar Velazquez on 07-14-2024 MCHC (RBC) [Mass/Vol] 32.8 g/dL 32-36 [facility] Mean platelet volume determi nationOrdered By: Sukumar Velazquez on 07-14-2024 Platelet mean volume (Bld) [Entitic vol] 10.6 fL 6.2-12.0 [facility] Monocyte percentageOrdered B y: Sukumar Velazquez on 07-14-2024 Monocytes/100 WBC (Bld) 13.6 % High 0-10 [facility] Neutrophil percentageOrdered By: Sukumar Velazquez on 07-14-2024 Neutrophils/100 WBC (Bld) 54.7 % 47-70 [facility] Nucleated red blood cell per centageOrdered By: Mayajeffrybela Ehcobyissa on 07-14-2024 Nucleated RBC/100 WBC (Bld) [Ratio] 0 % 0-5 [facility] Platelet countOrdered By: Maya bridgersoumya Stauffercobyissa on 07-14-2024 Platelets (Bld) [#/Vol] 207 10*3/uL 150-450 [facility] Potassium measurement (mass/ volume)Ordered By: Sukumar Velazquez on 07-14-2024 Potassium (Unsp spec) [Mass/Vol] 4.3 mmol/L 3.3-5.1 [facility] RBC Auto (Bld) [#/Vol]Ordere d By: Dennisesoumya Stauffercobyissa on 07-14-2024 RBC (Bld) [#/Vol] 3.74 10*6/uL Low 4.2-5.4 [facility] Serum creatinine measurement (mass/volume)Ordered By: Sukumar Stauffercobyissa on 07-14-2024 Creatinine [Mass/Vol] 0.49 mg/dL Low 0.70-1.20 [facility] Serum glucose measurement (m ass/volume)Ordered By: Mayarosie Velazquez on 07-14-2024 Glucose [Mass/Vol] 98 mg/dL 70-99 [facility] Serum or plasma calcium cedric urement (mass/volume)Ordered By: Sukumar Stauffercobyissa on 07-14-2024 Calcium [Mass/Vol] 9.3 mg/dL 7.6-11.0 [facility] Serum or plasma urea nitroge n measurement (mass/volume)Ordered By: Sukumar Velazquez on 07-14-2024 Urea nitrogen [Mass/Vol] 32 mg/dL High 4-19 [facility] Sodium levelOrdered By: Mayajeffry bela Caroline on 07-14-2024 Sodium [Moles/Vol] 139 mmol/L 133-145 [facility] White blood cell (WBC) count Ordered By: Sukumar Velazquez 07-14-2024 WBC (Bld) [#/Vol] 3.6 10*3/uL Low 4.4-11.0 [facility] Dexa Bone Density Studyon Dexa Bone Density Study Normal [facility] SCRN MAMM (CAD)W/JD BILATo n 07-12-2024 SCRN MAMM (CAD)W/JD BILAT Normal [facility] History AND Physic bret 07-11-2024 Wound Ctr History & Physical Normal [facility] History & Physical Normal [facility] Absolute lymphocyte countOrd ered By: Sukumar Velazquez on 07-07-2024 Lymphocytes Auto (Unsp spec) [#/Vol] 0.95 10*3/uL 0.83-4.51 [facility] Absolute neutrophil countOrd ered By: Sukumar Velazquez on 07-07-2024 Neutrophils (Bld) [#/Vol] 3.1 10*3/uL 2.0-7.7 [facility] Anion gap in Serum or Plasma Ordered By: Sukumar Velazquez on 07-07-2024 Anion gap [Moles/Vol] 9 mmol/L 5-15 [facility] Automated lymphocyte count a s percentage of total leukocytesOrdered By: Sukumar Velazquez on 07-07-2024 Lymphocytes/100 WBC Auto (Unsp spec) 19.8 % 19-41 [facility] BUN/creatinine ratioOrdered By: Sukumar Velazquez on 07-07-2024 Urea nitrogen/Creatinine [Mass ratio] 58.3 mg/mg High 10-20 [facility] Basophil percentageOrdered B y: Sukumar Velazquez on 07-07-2024 Basophils/100 WBC (Bld) 0.2 % 0-1 [facility] Carbon dioxide, total [Moles /volume] in Central venous bloodOrdered By: Sukumar Velazquez on 07-07-2024 CO2 [Moles/Vol] 28.2 mmol/L 21.0-32.0 [facility] Chloride assayOrdered By: Maya Velazquez on 07-07-2024 Chloride [Moles/Vol] 102 mmol/L 98-108 [facility] Eosinophil percentageOrdered By: Sukumar Velazquez on 07-07-2024 Eosinophils/100 WBC (Bld) 5.2 % High 0-5 [facility] Erythrocyte distribution wid th ratioOrdered By: Sukumar Velazquez on 07-07-2024 Erythrocyte distribution width (RBC) [Ratio] 12.3 % 11.6-14.6 [facility] Erythrocyte distribution wid th standard deviationOrdered By: Sukumar Velazquez on 07-07-2024 Erythrocyte distribution width (RBC) [Ratio] 44.6 fl High 35.1-43.9 [facility] Glomerular filtration rate ( GFR) estimation/1.73 sq m using serum, plasma, or whole bOrdered By: Seralouisvillesoumya Velazquez on 07-07-2024 GFR/1.73 sq M.predicted among non-blacks MDRD (S/P/Bld) [Vol rate/Area] 99 mL/min/{1.73_m2} >60 [facility] Comment on above: mL/min/1.73m2 CKD-EP I Creatinine Equation (2020) Hematocrit Auto (Bld) [Volum e fraction]Ordered By: Sukumar Velazquez on 07-07-2024 Hematocrit (Bld) [Volume fraction] 36.4 % Low 37-47 [facility] Hemoglobin measurementOrdere d By: Sukumar Velazquez on 07-07-2024 Hemoglobin (Bld) [Mass/Vol] 12.0 g/dL 12.0-15.0 [facility] Immature granulocytes/100 WB C Auto (Bld)Ordered By: Sukumar Velazquez on 07-07-2024 Immature granulocytes/100 WBC (Bld) 0.200 % 0.0-0.9 [facility] Comment on above: IG% - Immature Granu locytes (promyelocytes, myelocytes and metamyelocytes) > 1% indicates that a LEFT SHIFT is Present. MCV (mean corpuscular volume ) determinationOrdered By: Sukumar Velazquez on 07-07-2024 MCV (RBC) [Entitic vol] 98.1 fL 81-99 [facility] Mean corpuscular hemoglobin (MCH) determinationOrdered By: Sukumar Velazquez 07-07-2024 MCH (RBC) [Entitic mass] 32.3 pg High 27.0-32.0 [facility] Mean corpuscular hemoglobin concentration (MCHC) determinationOrdered By: Sukumar Velazquez on 07-07-2024 MCHC (RBC) [Mass/Vol] 33.0 g/dL 32-36 [facility] Mean platelet volume determi nationOrdered By: Sukumar Velazquez on 07-07-2024 Platelet mean volume (Bld) [Entitic vol] 10.7 fL 6.2-12.0 [facility] Monocyte percentageOrdered B y: Sukumar Velazquez on 07-07-2024 Monocytes/100 WBC (Bld) 10.4 % High 0-10 [facility] Neutrophil percentageOrdered By: Sukumra Velazquez on 07-07-2024 Neutrophils/100 WBC (Bld) 64.2 % 47-70 [facility] Nucleated red blood cell per centageOrdered By: Sukumar Velazquez on 07-07-2024 Nucleated RBC/100 WBC (Bld) [Ratio] 0 % 0-5 [facility] Platelet countOrdered By: Maya Velazquez on 07-07-2024 Platelets (Bld) [#/Vol] 201 10*3/uL 150-450 [facility] Potassium measurement (mass/ volume)Ordered By: Sukumar Velazquez on 07-07-2024 Potassium (Unsp spec) [Mass/Vol] 4.3 mmol/L 3.3-5.1 [facility] RBC Auto (Bld) [#/Vol]Ordere d By: Sukumar Velazquez on 07-07-2024 RBC (Bld) [#/Vol] 3.71 10*6/uL Low 4.2-5.4 [facility] Serum creatinine measurement (mass/volume)Ordered By: Sukumar Velazquez on 07-07-2024 Creatinine [Mass/Vol] 0.51 mg/dL Low 0.70-1.20 [facility] Serum glucose measurement (m ass/volume)Ordered By: Sukumar Velazquez on 07-07-2024 Glucose [Mass/Vol] 98 mg/dL 70-99 [facility] Serum or plasma calcium cedric urement (mass/volume)Ordered By: Mayajeffrydeedeesoumya Stauffercobyissa on 07-07-2024 Calcium [Mass/Vol] 9.2 mg/dL 7.6-11.0 [facility] Serum or plasma urea nitroge n measurement (mass/volume)Ordered By: Mayajeffrydeedeesoumya Stauffercobyissa on 07-07-2024 Urea nitrogen [Mass/Vol] 30 mg/dL High 4-19 [facility] Sodium levelOrdered By: Sera cramer Ehcobyissa on 07-07-2024 Sodium [Moles/Vol] 138 mmol/L 133-145 [facility] White blood cell (WBC) count Ordered By: [facility] on 07-07-2024 WBC (Bld) [#/Vol] 4.8 10*3/uL 4.4-11.0 [facility] Absolute lymphocyte countOrd ered By: Ginoarmando Orlando on 07-05-2024 Lymphocytes Auto (Unsp spec) [#/Vol] 0.85 10*3/uL 0.83-4.51 [facility] Absolute neutrophil countOrd ered By: [facility] on 07-05-2024 Neutrophils (Bld) [#/Vol] 4.8 10*3/uL 2.0-7.7 [facility] Automated lymphocyte count a s percentage of total leukocytesOrdered By: Fransisca Orlando on 07-05-2024 Lymphocytes/100 WBC Auto (Unsp spec) 13.4 % Low 19-41 [facility] Basophil percentageOrdered B y: Fransisca Orlando on 07-05-2024 Basophils/100 WBC (Bld) 0.3 % 0-1 [facility] CBC W/Diff, Automatedon Absolute Lymph 0.85 X10 3/uL Normal 0.83-4.51 [facility] Comment on above: Performed By: #### L 100.9950, L503.6550, L100.0100, L503.6030 ####[facility] [address] [place], [place], [id number] Absolute Neut 4.8 X10 3/uL Normal 2.0-7.7 [facility] Comment on above: Performed By: #### L 100.9950, L503.6550, L100.0100, L503.6030 ####[facility] [address] [place], [address] Basophils/100 WBC (Bld) 0.3 % Normal 0-1 [facility] Comment on above: Performed By: #### L 100.9950, L503.6550, L100.0100, L503.6030 ####[facility] [address] [place], [address] Eosinophils/100 WBC (Bld) 3.0 % Normal 0-5 [facility] Comment on above: Performed By: #### L 100.9950, L503.6550, L100.0100, L503.6030 ####[facility] [address] [place], [address] Erythrocyte distribution width (RBC) [Ratio] 12.2 % Normal 11.6-14.6 [facility] Comment on above: Performed By: #### L 100.9950, L503.6550, L100.0100, L503.6030 ####[facility] [address] [place], [address] Hematocrit (Bld) [Volume fraction] 36.1 % Low 37-47 [facility] Comment on above: Performed By: #### L 100.9950, L503.6550, L100.0100, L503.6030 ####[facility] [address] [place], [address] Hemoglobin (Bld) [Mass/Vol] 12.1 g/dL Normal 12.0-15.0 [facility] Comment on above: Performed By: #### L 100.9950, L503.6550, L100.0100, L503.6030 ####[facility] [address] [place], [address] IG% 0.200 Normal 0.0-0.9 [facility] Comment on above: Result Comment: IG% - Immature Granulocytes (promyelocytes, myelocytes andmetamyelocytes) > 1% indicates that a LEFT SHIFT is Present. Performed By: #### L 100.9950, L503.6550, L100.0100, L503.6030 ####[facility] [address] [place], [address] Lymphocytes/100 WBC (Bld) 13.4 % Low 19-41 [facility] Comment on above: Performed By: #### L 100.9950, L503.6550, L100.0100, L503.6030 ####[facility] [address] [place], [address] MCH (RBC) [Entitic mass] 32.6 pg High 27.0-32.0 [facility] Comment on above: Performed By: #### L 100.9950, L503.6550, L100.0100, L503.6030 ####[facility] [address] [place], [address] MCHC (RBC) [Mass/Vol] 33.5 g/dL Normal 32-36 [facility] Comment on above: Performed By: #### L 100.9950, L503.6550, L100.0100, L503.6030 ####[facility] [address] [place], [address] MCV (RBC) [Entitic vol] 97.3 fL Normal 81-99 [facility] Comment on above: Performed By: #### L 100.9950, L503.6550, L100.0100, L503.6030 ####[facility] [address] [place], [address] Monocytes/100 WBC (Bld) 7.9 % Normal 0-10 [facility] Comment on above: Performed By: #### L 100.9950, L503.6550, L100.0100, L503.6030 ####[facility] [address] [place], [address] Neutrophils/100 WBC (Bld) 75.2 % High 47-70 [facility] Comment on above: Performed By: #### L 100.9950, L503.6550, L100.0100, L503.6030 ####[facility] [address] [place], [address] Nucleated RBC (Bld) [#/Vol] 0 10*3/uL Normal 0-5 [facility] Comment on above: Performed By: #### L 100.9950, L503.6550, L100.0100, L503.6030 ####[facility] [address] [place], [address] Platelet mean volume (Bld) [Entitic vol] 10.1 fL Normal 6.2-12.0 [facility] Comment on above: Performed By: #### L 100.9950, L503.6550, L100.0100, L503.6030 ####[facility] [address] [place], [address] Platelets (Bld) [#/Vol] 204 10*3/uL Normal 150-450 [facility] Comment on above: Performed By: #### L 100.9950, L503.6550, L100.0100, L503.6030 ####[facility] [address] [place], [address] RBC (Bld) [#/Vol] 3.71 10*6/uL Low 4.2-5.4 [facility] Comment on above: Performed By: #### L 100.9950, L503.6550, L100.0100, L503.6030 ####[facility] [address] [place], [address] RDW SD 44.0 fl High 35.1-43.9 [facility] Comment on above: Performed By: #### L 100.9950, L503.6550, L100.0100, L503.6030 ####[facility] [address] [place], [address] WBC (Bld) [#/Vol] 6.3 10*3/uL Normal 4.4-11.0 [facility] Comment on above: Performed By: #### L 100.9950, L503.6550, L100.0100, L503.6030 ####[facility] [address] [place], [address] Eosinophil percentageOrdered By: Fransisca Orlando on 07-05-2024 Eosinophils/100 WBC (Bld) 3.0 % 0-5 [facility] Erythrocyte distribution wid th ratioOrdered By: [facility] on 07-05-2024 Erythrocyte distribution width (RBC) [Ratio] 12.2 % 11.6-14.6 [facility] Erythrocyte distribution wid th standard deviationOrdered By: [facility] Hospital[facility]ando Orlando on 07-05-2024 Erythrocyte distribution width (RBC) [Ratio] 44.0 fl High 35.1-43.9 [facility] Ferritinon 07-05-2024 Ferritin [Mass/Vol] 33 ng/mL Normal 22-378 [facility] Comment on above: Performed By: #### L 100.9950, L503.6550, L100.0100, L503.6030 ####[facility] [address] [place], [address] Hematocrit Auto (Bld) [Volum e fraction]Ordered By: Fransisca Orlando on 07-05-2024 Hematocrit (Bld) [Volume fraction] 36.1 % Low 37-47 [facility] Hemoglobin measurementOrdere d By: Fransisca Orlando on 07-05-2024 Hemoglobin (Bld) [Mass/Vol] 12.1 g/dL 12.0-15.0 [facility] Immature granulocytes/100 WB C Auto (Bld)Ordered By: [facility] on 07-05-2024 Immature granulocytes/100 WBC (Bld) 0.200 % 0.0-0.9 [facility] Comment on above: IG% - Immature Granu locytes (promyelocytes, myelocytes and metamyelocytes) > 1% indicates that a LEFT SHIFT is Present. Iron measurement (mass/mass) Ordered By: Fransisca Orlando on 07-05-2024 Iron (Unsp spec) [Mass/Mass] 114 ug/dL 50-170 [facility] Iron+Iron Binding Capacityon 07-05-2024 TIBC 231 ug/dL Low 250-450 [facility] Comment on above: Performed By: #### L 100.9950, L503.6550, L100.0100, L503.6030 ####[facility] [address] [place], [address] MCV (mean corpuscular volume ) determinationOrdered By: Fransisca Orlando on 07-05-2024 MCV (RBC) [Entitic vol] 97.3 fL 81-99 [facility] Mean corpuscular hemoglobin (MCH) determinationOrdered By: Fransisca Orlando on 07-05-2024 MCH (RBC) [Entitic mass] 32.6 pg High 27.0-32.0 [facility] Mean corpuscular hemoglobin concentration (MCHC) determinationOrdered By: Fransisca Orlando on 07-05-2024 MCHC (RBC) [Mass/Vol] 33.5 g/dL 32-36 [facility] Mean platelet volume determi nationOrdered By: [facility] on 07-05-2024 Platelet mean volume (Bld) [Entitic vol] 10.1 fL 6.2-12.0 [facility] Monocyte percentageOrdered B y: Fransisca Orlando on 07-05-2024 Monocytes/100 WBC (Bld) 7.9 % 0-10 [facility] Neutrophil percentageOrdered By: [facility] Hospital[facility] on 07-05-2024 Neutrophils/100 WBC (Bld) 75.2 % High 47-70 [facility] No Panel InformationOrdered By: Fransisca Orlando on 07-05-2024 Unsaturated Iron Binding Capacity 117 ug/dL Low 228-428 [facility] 117 ug/dL Low 228-428 [facility] Nucleated red blood cell per centageOrdered By: Fransisca Orlando on 07-05-2024 Nucleated RBC/100 WBC (Bld) [Ratio] 0 % 0-5 [facility] Oncology Visit Reporton 030 Oncology Visit Report Normal [facility] Platelet countOrdered By: Adan Orlando on 07-05-2024 Platelets (Bld) [#/Vol] 204 10*3/uL 150-450 [facility] RBC Auto (Bld) [#/Vol]Ordere d By: Fransisca Orlando on 07-05-2024 RBC (Bld) [#/Vol] 3.71 10*6/uL Low 4.2-5.4 [facility] Retic Panelon 07-05-2024 IM RET FRACTION 8.30 Normal 3.00-15.90 [facility] Comment on above: Performed By: #### L 100.9950, L503.6550, L100.0100, L503.6030 ####[facility] [address] [place], [address] RET-HE 34.9 pg Normal 30-35 [facility] Comment on above: Performed By: #### L 100.9950, L503.6550, L100.0100, L503.6030 ####[facility] [address] [place], [address] Retic Count 1.72 High 0.5-1.5 [facility] Comment on above: Performed By: #### L 100.9950, L503.6550, L100.0100, L503.6030 ####[facility] [address] [place], [address] Reticulocyte hemoglobin equi valent (RET-He) measurementOrdered By: Fransisca Orlando on 07-05-2024 Hemoglobin (Reticulocytes) [Entitic mass] 34.9 pg 30-35 [facility] Reticulocytes Auto (Bld) [#/ Vol]Ordered By: Fransisca Orlando on 07-05-2024 Reticulocytes/100 RBC (Bld) 1.72 % High 0.5-1.5 [facility] Serum or plasma ferritin pineda surement (mass/volume)Ordered By: Fransisca Orlando on 07-05-2024 Ferritin [Mass/Vol] 33 ng/mL 22-378 [facility] Serum or plasma iron saturat ion measurement (mass fraction)Ordered By: Fransisca Orlando on 07-05-2024 Iron saturation [Mass fraction] 49.4 % 15.0-55.0 [facility] Comment on above: Previous reported re sult: 49.0 %Edited by: TREVA on 07/05/24:1659 AMENDED REPORT 07/05/24 1659 IRON SATURATION previously reported as: 49.0 % White blood cell (WBC) count Ordered By: Fransisca Orlando on 07-05-2024 WBC (Bld) [#/Vol] 6.3 10*3/uL 4.4-11.0 [facility] Absolute lymphocyte countOrd ered By: Sukumar Velazquez on 06-30-2024 Lymphocytes Auto (Unsp spec) [#/Vol] 0.87 10*3/uL 0.83-4.51 [facility] Automated lymphocyte count a s percentage of total leukocytesOrdered By: Sukumar Velazquez on 06-30-2024 Lymphocytes/100 WBC Auto (Unsp spec) 21.8 % 19-41 [facility] BUN/creatinine ratioOrdered By: Sukumar Velazquez on 06-30-2024 Urea nitrogen/Creatinine [Mass ratio] 65.7 mg/mg High 10-20 [facility] Basophil percentageOrdered B y: Sukumar Velazquez on 06-30-2024 Basophils/100 WBC (Bld) 0.5 % 0-1 [facility] Carbon dioxide measurementOr dered By: Sukumar Velazquez on 06-30-2024 CO2 [Moles/Vol] 28.8 mmol/L 22.0-29.0 [facility] Chloride measurementOrdered By: Sukumar Velazquez on 06-30-2024 Chloride [Moles/Vol] 104 mmol/L 96-108 [facility] Eosinophil percentageOrdered By: Sukumar Velazquez on 06-30-2024 Eosinophils/100 WBC (Bld) 5.5 % High 0-5 [facility] Erythrocyte distribution wid th ratioOrdered By: Sukumar Velazquez on 06-30-2024 Erythrocyte distribution width (RBC) [Ratio] 12.3 % 11.6-14.6 [facility] Erythrocyte distribution wid th standard deviationOrdered By: Sukumar Velazquez on 06-30-2024 Erythrocyte distribution width (RBC) [Ratio] 44.6 fl High 35.1-43.9 [facility] Glomerular filtration rate ( GFR) estimation/1.73 sq m using serum, plasma, or whole bOrdered By: Seralouisvillesoumya Velazquez on 06-30-2024 GFR/1.73 sq M.predicted among non-blacks MDRD (S/P/Bld) [Vol rate/Area] 98 mL/min/{1.73_m2} >60 [facility] Hematocrit Auto (Bld) [Volum e fraction]Ordered By: Sukumar Velazquez 06-30-2024 Hematocrit (Bld) [Volume fraction] 34.1 % Low 37-47 [facility] Hemoglobin measurementOrdere d By: Sukumar Velazquez on 06-30-2024 Hemoglobin (Bld) [Mass/Vol] 11.2 g/dL Low 12.0-15.0 [facility] Immature granulocytes/100 WB C Auto (Bld)Ordered By: Sukumar Velazquez on 06-30-2024 Immature granulocytes/100 WBC (Bld) 0.500 % 0.0-0.9 [facility] MCV (mean corpuscular volume ) determinationOrdered By: Sukumar Velazquez 06-30-2024 MCV (RBC) [Entitic vol] 99.1 fL High 81-99 [facility] Mean corpuscular hemoglobin (MCH) determinationOrdered By: Sukumar Velazquez 06-30-2024 MCH (RBC) [Entitic mass] 32.6 pg High 27.0-32.0 [facility] Monocyte percentageOrdered B y: Sukumar Velazquez on 06-30-2024 Monocytes/100 WBC (Bld) 13.8 % High 0-10 [facility] Neutrophil percentageOrdered By: Mayajeffrybela Ehayala on 06-30-2024 Neutrophils/100 WBC (Bld) 57.9 % 47-70 [facility] Platelet countOrdered By: Maya rosie Ehayala on 06-30-2024 Platelets (Bld) [#/Vol] 187 10*3/uL 150-450 [facility] RBC Auto (Bld) [#/Vol]Ordere d By: Sukumar Ehayala on 06-30-2024 RBC (Bld) [#/Vol] 3.44 10*6/uL Low 4.2-5.4 [facility] Serum glucose measurement (m ass/volume)Ordered By: Sukumar Velazquez on 06-30-2024 Glucose [Mass/Vol] 99 mg/dL 70-99 [facility] Serum or plasma anion gap de termination (moles/volume)Ordered By: Sukumar Velazquez on 06-30-2024 Anion gap [Moles/Vol] 7 mmol/L 5-15 [facility] Serum or plasma calcium cedric urement (mass/volume)Ordered By: Sukumar Velazquez on 06-30-2024 Calcium [Mass/Vol] 9.6 mg/dL 7.6-11.0 [facility] Serum or plasma creatinine m easurement (moles/volume)Ordered By: Sukumar Velazquez on 06-30-2024 Creatinine [Moles/Vol] 0.5 mg/dL Low 0.6-1.0 [facility] Serum or plasma potassium me asurementOrdered By: Sukumar Velazquez on 06-30-2024 Potassium [Moles/Vol] 4.2 mmol/L 3.3-5.1 [facility] Serum or plasma sodium measu rement (moles/volume)Ordered By: Sukumar Velazquez on 06-30-2024 Sodium [Moles/Vol] 140 mmol/L 133-145 [facility] Serum or plasma urea nitroge n measurement (mass/volume)Ordered By: Sukumar Velazquez on 06-30-2024 Urea nitrogen [Mass/Vol] 34 mg/dL High 4-19 [facility] White blood cell (WBC) count Ordered By: Sukumar Velazquez on 06-30-2024 WBC (Bld) [#/Vol] 4.0 10*3/uL Low 4.4-11.0 [facility] Culture, Anaerobic Any Sourc nel 06-25-2024 CUAN Normal [facility] Comment on above: Performed By: #### M 100.3000, M100.4001, M100.1999 ####[facility] [address] [place], [address] Wound Cultureon 06-25-2024 WC Normal [facility] Comment on above: Performed By: #### M 100.3000, M100.4001, M100.1999 ####[facility] [address] [place], [address] Absolute lymphocyte countOrd ered By: Sukumar Velazquez on 06-23-2024 Lymphocytes Auto (Unsp spec) [#/Vol] 1.12 10*3/uL 0.83-4.51 [facility] Automated lymphocyte count a s percentage of total leukocytesOrdered By: Sukumar Velazquez on 06-23-2024 Lymphocytes/100 WBC Auto (Unsp spec) 28.8 % 19-41 [facility] Basophil percentageOrdered B y: Sukumar Velazquez on 06-23-2024 Basophils/100 WBC (Bld) 0.5 % 0-1 [facility] Carbon dioxide measurementOr dered By: Sukumar Velazquez on 06-23-2024 CO2 [Moles/Vol] 32.0 mmol/L 21.0-32.0 [facility] Chloride measurementOrdered By: Sukumar Velazquez on 06-23-2024 Chloride [Moles/Vol] 104 mmol/L 98-107 [facility] Eosinophil percentageOrdered By: Sukumar Velazquez on 06-23-2024 Eosinophils/100 WBC (Bld) 6.7 % High 0-5 [facility] Erythrocyte distribution wid th ratioOrdered By: Sukumar Velazquez on 06-23-2024 Erythrocyte distribution width (RBC) [Ratio] 12.3 % 11.6-14.6 [facility] Erythrocyte distribution wid th standard deviationOrdered By: Sukumar Velazquez on 06-23-2024 Erythrocyte distribution width (RBC) [Ratio] 45.8 fl High 35.1-43.9 [facility] Glomerular filtration rate ( GFR) estimationOrdered By: Sukumar Velazquez on 06-23-2024 GFR/1.73 sq M.predicted among non-blacks MDRD (S/P/Bld) [Vol rate/Area] 162 mL/min/{1.73_m2} >60 [facility] Glucose measurementOrdered B y: Sukumar Velazquez on 06-23-2024 Glucose [Mass/Vol] 87 mg/dL 74-106 [facility] Hematocrit Auto (Bld) [Volum e fraction]Ordered By: Sukumar Velazquez on 06-23-2024 Hematocrit (Bld) [Volume fraction] 33.9 % Low 37-47 [facility] Hemoglobin measurementOrdere d By: Sukumar Velazquez on 06-23-2024 Hemoglobin (Bld) [Mass/Vol] 10.9 g/dL Low 12.0-15.0 [facility] Immature granulocytes/100 WB C Auto (Bld)Ordered By: Sukumar Velazquez on 06-23-2024 Immature granulocytes/100 WBC (Bld) 0.300 % 0.0-0.9 [facility] MCV (mean corpuscular volume ) determinationOrdered By: Sukumar Velazquez on 06-23-2024 MCV (RBC) [Entitic vol] 100.6 fL High 81-99 [facility] Mean corpuscular hemoglobin (MCH) determinationOrdered By: Sukumar Velazquez on 06-23-2024 MCH (RBC) [Entitic mass] 32.3 pg High 27.0-32.0 [facility] Monocyte percentageOrdered B y: Sukumar Velazquez on 06-23-2024 Monocytes/100 WBC (Bld) 12.3 % High 0-10 [facility] Neutrophil percentageOrdered By: Sukumar Velazquez on 06-23-2024 Neutrophils/100 WBC (Bld) 51.4 % 47-70 [facility] Platelet countOrdered By: rosie Ehayala on 06-23-2024 Platelets (Bld) [#/Vol] 184 10*3/uL 150-450 [facility] Potassium measurementOrdered By: Sukumar Ehcobyissa on 06-23-2024 Potassium [Moles/Vol] 4.2 mmol/L 3.5-5.1 [facility] RBC Auto (Bld) [#/Vol]Ordere d By: Sukumar Ehayala on 06-23-2024 RBC (Bld) [#/Vol] 3.37 10*6/uL Low 4.2-5.4 [facility] Serum or plasma calcium cedric urement (mass/volume)Ordered By: Mayajeffrybela Ehcobyissa on 06-23-2024 Calcium [Mass/Vol] 9.4 mg/dL 8.5-10.1 [facility] Serum or plasma creatinine m easurement (mass/volume)Ordered By: Sukumar Ehayala on 06-23-2024 Creatinine [Mass/Vol] 0.41 mg/dL Low 0.55-1.02 [facility] Serum or plasma urea nitroge n measurement (mass/volume)Ordered By: Mayajeffrybela Ehcobyissa on 06-23-2024 Urea nitrogen [Mass/Vol] 32 mg/dL High 7-18 [facility] Sodium levelOrdered By: Sera cramer Ehcobyissa on 06-23-2024 Sodium [Moles/Vol] 138 mmol/L 136-145 [facility] White blood cell (WBC) count Ordered By: Sukumar Ehcobyissa on 06-23-2024 WBC (Bld) [#/Vol] 3.9 10*3/uL Low 4.4-11.0 [facility] Anaerobic cultureOrdered By: Evelyn Robertson on 06-22-2024 Bacteria identified Anaer cx Nom (Unsp spec) Anaerobic cocci Abnormal [facility] Gram Stainon 06-22-2024 GS RIGHT BUTTOCK Gram Stain 4+ Red Blood Cells Rare Gram positive diplococci Rare Gram positive rods Normal [facility] Comment on above: Performed By: #### M 100.3000, M100.4001, M100.1999 ####[facility] [id number] [place], [address] Gram stainOrdered By: Evelyn constantino on 06-22-2024 Microscopic observation Gram stain Nom (Unsp spec) [facility] Routine wound cultureOrdered By: Evelyn Robertson on 06-22-2024 Microbial culture, routine Haemophilus parainfluenzae Abnormal [facility] Absolute lymphocyte countOrd ered By: Sukumar Velazquez on 06-16-2024 Lymphocytes Auto (Unsp spec) [#/Vol] 1.10 10*3/uL 0.83-4.51 [facility] Automated lymphocyte count a s percentage of total leukocytesOrdered By: Sukumar Velazquez on 06-16-2024 Lymphocytes/100 WBC Auto (Unsp spec) 28.9 % 19-41 [facility] Basophil percentageOrdered B y: Sukumar Velazquez on 06-16-2024 Basophils/100 WBC (Bld) 0.5 % 0-1 [facility] Carbon dioxide measurementOr dered By: Sukumar Velazquez on 06-16-2024 CO2 [Moles/Vol] 32.0 mmol/L 21.0-32.0 [facility] Chloride measurementOrdered By: Sukumar Velazquez on 06-16-2024 Chloride [Moles/Vol] 106 mmol/L 98-107 [facility] Eosinophil percentageOrdered By: Sukumar Velazquez on 06-16-2024 Eosinophils/100 WBC (Bld) 8.4 % High 0-5 [facility] Erythrocyte distribution wid th ratioOrdered By: Sukumar Velazquez on 06-16-2024 Erythrocyte distribution width (RBC) [Ratio] 12.1 % 11.6-14.6 [facility] Erythrocyte distribution wid th standard deviationOrdered By: Sukumar Velazquez on 06-16-2024 Erythrocyte distribution width (RBC) [Ratio] 45.1 fl High 35.1-43.9 [facility] Glomerular filtration rate ( GFR) estimationOrdered By: Sukumar Velazquez on 06-16-2024 GFR/1.73 sq M.predicted among non-blacks MDRD (S/P/Bld) [Vol rate/Area] 135 mL/min/{1.73_m2} >60 [facility] Glucose measurementOrdered B y: Sukumar Velazquez on 06-16-2024 Glucose [Mass/Vol] 91 mg/dL 74-106 [facility] Hematocrit Auto (Bld) [Volum e fraction]Ordered By: Sukumar Velazquez on 06-16-2024 Hematocrit (Bld) [Volume fraction] 33.2 % Low 37-47 [facility] Hemoglobin measurementOrdere d By: Sukumar Velazquez on 06-16-2024 Hemoglobin (Bld) [Mass/Vol] 10.8 g/dL Low 12.0-15.0 [facility] Immature granulocytes/100 WB C Auto (Bld)Ordered By: Sukumar Velazquez on 06-16-2024 Immature granulocytes/100 WBC (Bld) 0.300 % 0.0-0.9 [facility] MCV (mean corpuscular volume ) determinationOrdered By: Sukumar Velazquez on 06-16-2024 MCV (RBC) [Entitic vol] 99.7 fL High 81-99 [facility] Mean corpuscular hemoglobin (MCH) determinationOrdered By: Sukumar Velazquez 06-16-2024 MCH (RBC) [Entitic mass] 32.4 pg High 27.0-32.0 [facility] Monocyte percentageOrdered B y: Sukumar Velazquez on 06-16-2024 Monocytes/100 WBC (Bld) 12.6 % High 0-10 [facility] Neutrophil percentageOrdered By: Sukumar Velazquez on 06-16-2024 Neutrophils/100 WBC (Bld) 49.3 % 47-70 [facility] Platelet countOrdered By: Maya jeffrybela Velazquez on 06-16-2024 Platelets (Bld) [#/Vol] 201 10*3/uL 150-450 [facility] Potassium measurementOrdered By: Sukumar Velazquez on 06-16-2024 Potassium [Moles/Vol] 4.2 mmol/L 3.5-5.1 [facility] RBC Auto (Bld) [#/Vol]Ordere d By: Seradeedeesoumya Velazquez on 06-16-2024 RBC (Bld) [#/Vol] 3.33 10*6/uL Low 4.2-5.4 [facility] Serum or plasma calcium cedric urement (mass/volume)Ordered By: Sukumar Velazquez on 06-16-2024 Calcium [Mass/Vol] 9.4 mg/dL 8.5-10.1 [facility] Serum or plasma creatinine m easurement (mass/volume)Ordered By: Sukumar Velazquez on 06-16-2024 Creatinine [Mass/Vol] 0.48 mg/dL Low 0.55-1.02 [facility] Serum or plasma urea nitroge n measurement (mass/volume)Ordered By: Sukumar Velazquez on 06-16-2024 Urea nitrogen [Mass/Vol] 33 mg/dL High 7-18 [facility] Sodium levelOrdered By: Mayajeffry cramer Caroline on 06-16-2024 Sodium [Moles/Vol] 142 mmol/L 136-145 [facility] White blood cell (WBC) count Ordered By: Sukumar Velazquez on 06-16-2024 WBC (Bld) [#/Vol] 3.8 10*3/uL Low 4.4-11.0 [facility] Absolute lymphocyte countOrd ered By: Sukumar Velazquez on 06-09-2024 Lymphocytes Auto (Unsp spec) [#/Vol] 0.88 10*3/uL 0.83-4.51 [facility] Automated lymphocyte count a s percentage of total leukocytesOrdered By: Sukumar Velazquez on 06-09-2024 Lymphocytes/100 WBC Auto (Unsp spec) 24.0 % 19-41 [facility] Basophil percentageOrdered B y: Sukumar Velazquez on 06-09-2024 Basophils/100 WBC (Bld) 0.5 % 0-1 [facility] Carbon dioxide measurementOr dered By: Sukumar Velazquez on 06-09-2024 CO2 [Moles/Vol] 30.0 mmol/L 21.0-32.0 [facility] Chloride measurementOrdered By: Sukumar Velazquez on 06-09-2024 Chloride [Moles/Vol] 103 mmol/L 98-107 [facility] Eosinophil percentageOrdered By: Sukumar Velazquez on 06-09-2024 Eosinophils/100 WBC (Bld) 6.0 % High 0-5 [facility] Erythrocyte distribution wid th ratioOrdered By: Seralouisvillesoumya Velazquez on 06-09-2024 Erythrocyte distribution width (RBC) [Ratio] 12.5 % 11.6-14.6 [facility] Erythrocyte distribution wid th standard deviationOrdered By: Sukumar Velazquez on 06-09-2024 Erythrocyte distribution width (RBC) [Ratio] 46.3 fl High 35.1-43.9 [facility] Glomerular filtration rate ( GFR) estimationOrdered By: Sukumar Velazquez on 06-09-2024 GFR/1.73 sq M.predicted among non-blacks MDRD (S/P/Bld) [Vol rate/Area] 161 mL/min/{1.73_m2} >60 [facility] Glucose measurementOrdered B y: Sukumar Velazquez on 06-09-2024 Glucose [Mass/Vol] 81 mg/dL 74-106 [facility] Hematocrit Auto (Bld) [Volum e fraction]Ordered By: Sukumar Velazquez on 06-09-2024 Hematocrit (Bld) [Volume fraction] 33.5 % Low 37-47 [facility] Hemoglobin measurementOrdere d By: Sukumar Velazquez on 06-09-2024 Hemoglobin (Bld) [Mass/Vol] 10.5 g/dL Low 12.0-15.0 [facility] Immature granulocytes/100 WB C Auto (Bld)Ordered By: Sukumar Velazquez on 06-09-2024 Immature granulocytes/100 WBC (Bld) 0.300 % 0.0-0.9 [facility] MCV (mean corpuscular volume ) determinationOrdered By: Sukumar Velazquez on 06-09-2024 MCV (RBC) [Entitic vol] 100.0 fL High 81-99 [facility] Mean corpuscular hemoglobin (MCH) determinationOrdered By: Sukumar Velazquez on 06-09-2024 MCH (RBC) [Entitic mass] 31.3 pg 27.0-32.0 [facility] Monocyte percentageOrdered B y: Sukumar Velazquez on 06-09-2024 Monocytes/100 WBC (Bld) 12.6 % High 0-10 [facility] Neutrophil percentageOrdered By: Sukumar Velazquez on 06-09-2024 Neutrophils/100 WBC (Bld) 56.6 % 47-70 [facility] Platelet countOrdered By: Maya Velazquez on 06-09-2024 Platelets (Bld) [#/Vol] 191 10*3/uL 150-450 [facility] Potassium measurementOrdered By: Sukumar Velazquez on 06-09-2024 Potassium [Moles/Vol] 4.1 mmol/L 3.5-5.1 [facility] RBC Auto (Bld) [#/Vol]Ordere d By: Sukumar Velazquez on 06-09-2024 RBC (Bld) [#/Vol] 3.35 10*6/uL Low 4.2-5.4 [facility] Serum or plasma calcium cedric urement (mass/volume)Ordered By: Sukumar Velazquez on 06-09-2024 Calcium [Mass/Vol] 9.1 mg/dL 8.5-10.1 [facility] Serum or plasma creatinine m easurement (mass/volume)Ordered By: Sukumar Velazquez on 06-09-2024 Creatinine [Mass/Vol] 0.41 mg/dL Low 0.55-1.02 [facility] Serum or plasma urea nitroge n measurement (mass/volume)Ordered By: Sukumar Velazquez on 06-09-2024 Urea nitrogen [Mass/Vol] 28 mg/dL High 7-18 [facility] Sodium levelOrdered By: Sera Velazquez on 06-09-2024 Sodium [Moles/Vol] 138 mmol/L 136-145 [facility] White blood cell (WBC) count Ordered By: Sukumar Velazquez on 06-09-2024 WBC (Bld) [#/Vol] 3.7 10*3/uL Low 4.4-11.0 [facility] Culture, Anaerobic Any Sourc nel 05-17-2024 CUAN RIGHT Cutibacterium acnes Normal [facility] Comment on above: Performed By: #### M 100.4001, M100.3000, M100.1999 ####[facility] [id number] [place], [place], [address] Wound Cultureon 05-14-2024 WC Normal [facility] Comment on above: Performed By: #### M 100.4001, M100.3000, M100.1999 ####[facility] [address] [place], [place], [address] Gram Stainon 05-12-2024 GS RIGHT Gram Stain No organisms seen 4+ Red Blood Cells No Epithelial cells Normal [facility] Comment on above: Performed By: #### M 100.4001, M100.3000, M100.1999 ####[facility] [id number] [place], [place], [address] [facility]LE[facility] AND[facility] ([id number]) 1950 F NFR Date Time Provider Department [...] Verbal order relayed to patient's nurse at [facility]. Juliane Landa RN Allergies As of Date: 05/09/2024 Noted [...] mg by mouth twice daily. - WHEELCHAIR [facility] STANDING WHEELCHAIR Problem List As Of Date [...] Status:Closed by JULIANE LANDA on 05/09/24 Normal [facility] CBCDIF (EXTERNAL)on 05-05-19 25 BASO ABS [facility] Basophils/100 WBC (Bld) 1.1 % 0 - 1.5 % [facility] EOS [facility] Eosinophils/100 WBC (Bld) 15 % Abnormal 1 - 3 % [facility] Erythrocyte distribution width (RBC) [Ratio] 14.7 % Abnormal 11.6 - 14.6 % [facility] Hematocrit (Bld) [Volume fraction] 30.9 % Abnormal 39 - 55 % [facility] Hemoglobin (Bld) [Mass/Vol] 9.8 g/dL Abnormal 14 - 16.5 g/dL [facility] Lymphocytes (Bld) [#/Vol] 0.95 10*3/uL Abnormal 1. 2 - 4 K/uL [facility] Lymphocytes/100 WBC (Bld) 25 % 20 - 30 % [facility] MCH (RBC) [Entitic mass] 33.2 pg 25. 4 - 34.6 pg [facility] MCHC (RBC) [Mass/Vol] 31.7 g/dL 30 - 3 6 g/dL [facility] MCV (RBC) [Entitic vol] 104.7 fL Abnormal 79 - 98 fL [facility] MONO ABS [facility] Monocytes/100 WBC (Bld) 11.1 % Abnormal 2 - 8 % C [facility] NEUT ABS 1.8 K/uL Abnormal 1.9 - 8 K/uL [facility] Neutrophils/100 WBC (Bld) 47.5 % 40 - 74 % [facility] Platelet mean volume (Bld) [Entitic vol] 10.4 fL 7.4 - 10.4 fL [facility] Platelets (Bld) [#/Vol] 193 10*3/uL 140 - 440 K/uL [facility] RBC (Bld) [#/Vol] 2.95 10*6/uL Abnormal [facility] WBC (Bld) [#/Vol] 3.8 10*3/uL Abnormal 3.9 - 11 K/uL [facility] CNPNon 05-05-2024 CNP[facility] Telephone (INFDAK) ALEENA ANDREA ([id number]) 1950 F NFR Date Time Provider Department [...] Visit: Results [95] Order(s):CREATININE BLOOD (AK,AV,EU,FV,HL,HUGH,MM ,SP) [[id number]] Order #: [id number] CBCDIF (EXTERNAL) [1015800] Order #: [id number] Prescriptions as of 05/05/2024 - ceFAZolin (ANCEF) [...] mg by mouth twice daily. 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] ENCEPHALITIS NOS [G04.90, G04.91] OTHER GENERAL SYMPTOMS [R68.89] MIGRNE UNSP WO [facility] MGRN [G43.909] ROSACEA [L71.9] OSTEOPOROSIS NOS [...] 04/17/2024 Encounter Status:Closed by JULIANE LANDA on 05/05/24 Normal [facility] CREATININE BLOOD (AK,AV,EU,F V,HL,HUGH,MM,SP)on 05-05-2024 Creatinine [Mass/Vol] 0.39 mg/dL Abnormal 0.70 - 1.20 mg/dL [facility] GFR 170 [facility] GFR AFR AMER 206 [facility] No Panel Informationon 05-05 Interpretation and review of laboratory results Abnormal [facility] CNDSon 04-22-2024 CNDS HNO ID: [id number] Author: GUSTABO SALDIVAR MD Service: Hospital Medicine [...] pump, chronic decubitus ulcers, who presented to [facility] from [facility] with concerns of hip pain. Initial imaging [...] the patient to be discharged today to [facility] with one day prescription for opiates to which she expressed agreement. Operations During Hospitalization: None Procedures During Hospitalization: Two surgical debridements, CT A/P Active Hospital Problems as of 04/22/2024 Noted - Resolved PO[facility] Hospital Paraplegia ([facility]) 12/29/2001 - Present Yes Chronic pain Unknown - Present Yes Pressure injury of dorsum of left foot, stage 2 ([facility]) 09/22/2022 - Present Yes Pressure injury of right ischium, unstageable ([facility]) 04/14/2024 - Present Yes Pressure injury of right perineal ischial region, unstageable ([facility]) 04/14/2024 - Present Yes Post-op pain [...] return to baseline mental/physical health. [facility]charge Dis[facility] Physical Exam: Physical Exam Constitutional: Appearance: [...] Musculoskeletal: General: (more content not included)... Normal [facility] CONSULT PROGon 04-21-2024 CONSULT PROG HNO ID: [id number] Author: ISAAC TRAMMELL APRN.TOUCH UP WORKER, JAMES Service: General Surgery Author Type: Nurse Practitioner Type: Consult Progress Note Filed: 04/21/2024 09:16 Note Text: Summary: Surgery sign-off Emergency General Surgery Progress Note SERVICE DATE: April 21, 2024 Emergency General Surgery Service Pager: For questions or concerns Mon-Fri 6a-5p please page [phone]. After 5pm and on Weekends and Holidays, please page [phone] if in ICU or [phone] if on RNF. SUBJECTIVE: Right ischial pressure [...] 04/21/2459 04/21/24 07 - 04/22/24 0659 Shift 3154-2289 0294-6185 7908-4886 24 Hour Total 4538-9263 5955-3767 1266-7068 24 Hour Total INTAKE Shift Total OUTPUT [...] 04/15/2024 Pressure injury of right ischium, unstageable ([facility]) 04/14/2024 Pressure injury of right perineal ischial region, unstageable ([facility]) 04/14/2024 Chronic constipation 04/14/2024 Pressure injury of dorsum of left foot, stage 2 ([facility]) 09/22/2022 Chronic pain Paraplegia ([facility]) 12/29/2001 Assessment: 73 year old female with PMHx of CAD, CHF, depression, hemorrhoids, osteoporosis, constipation, intrathecal pain pump, transverse myelitis causing LE paralysis, s/p lap augmentation cystoplasty with ileoileal catheterizable stoma at the umbilicus for neurogenic bladder. CTAP from [place] showed right sided 8.5x8.3cm subcutaneous abscess extending [...] with attending: (more content not included)... Normal [facility] NUTRITIONon 04-21-2024 NUTRITION HNO ID: [id number] Author: LUIS MO RD Service: Nutrition Therapy [...] bedscale wt is inaccurate) Dosing Weight Type: [place] body weight Estimated kilocalorie needs: 1440-1680kcals Calorie [...] April 21, 2024 TIME: 9:38 AM Normal [facility] CBC panel Auto (Bld)on 04-20 Erythrocyte distribution width (RBC) [Ratio] 16.0 % High 11.5-15.0 [facility] Comment on above: Order Comment: Shayy weiss Type: BLOOD SPECIMEN Ordering Facility: [facility] Address: [address] [place] [address] Performed By: #### 5 8410-2 #### [facility] CLIA [id number] [address] [place] Hematocrit (Bld) [Volume fraction] 25.2 % Low 36.0-46.0 [facility] Comment on above: Order Comment: Shayy weiss Type: BLOOD SPECIMEN Ordering Facility: [facility] Address: [address] [place] [address] Performed By: #### 5 8410-2 #### [facility] CLIA [id number] [address] [place] [address] [place] Hemoglobin (Bld) [Mass/Vol] 8.0 g/dL Low 11.5-15.5 [facility] Comment on above: Order Comment: Shayy weiss Type: BLOOD SPECIMEN Ordering Facility: [facility] Address: [address] [place] [address] Performed By: #### 5 8410-2 #### [facility] CLIA [id number] [address] MCH (RBC) [Entitic mass] 32.7 pg Normal 26.0-34.0 [facility] Comment on above: Order Comment: Speci men Type: BLOOD SPECIMEN Ordering Facility: [facility] Address: [address] [place] [address] Performed By: #### 5 8410-2 #### [facility] CLIA [id number] [address] MCHC (RBC) [Mass/Vol] 31.7 g/dL Normal 30.5-36.0 [facility] Comment on above: Order Comment: Speci men Type: BLOOD SPECIMEN Ordering Facility: [facility] Address: [address] [place] [address] Performed By: #### 5 8410-2 #### [facility] CLIA [id number] [address] MCV (RBC) [Entitic vol] 102.9 fL High 80.0-100.0 [facility] Comment on above: Order Comment: Speci men Type: BLOOD SPECIMEN Ordering Facility: [facility] Address: [address] [place] [address] Performed By: #### 5 8410-2 #### [facility] CLIA [id number] [address] Nucleated RBC (Bld) [#/Vol] 10*3/uL Normal <0.01 [facility] Comment on above: Order Comment: Speci men Type: BLOOD SPECIMEN Ordering Facility: [facility] Address: [address] [place] [address] Performed By: #### 5 8410-2 #### [facility] CLIA [id number] [address] [facility] Platelet mean volume (Bld) [Entitic vol] 9.4 fL Normal 9.0-12.7 [facility] Comment on above: Order Comment: Speci men Type: BLOOD SPECIMEN Ordering Facility: [facility] Address: [address] [place] [address] Performed By: #### 5 8410-2 #### [facility] CLIA [id number] [address] [facility] Platelets (Bld) [#/Vol] 370 10*3/uL Normal 150-400 [facility] Comment on above: Order Comment: Speci men Type: BLOOD SPECIMEN Ordering Facility: [facility] Address: [address] [place] [address] Performed By: #### 5 8410-2 #### [facility] CLIA [id number] [address] OF [facility] RBC (Bld) [#/Vol] 2.45 10*6/uL Low 3.90-5.20 [facility] Comment on above: Order Comment: Speci men Type: BLOOD SPECIMEN Ordering Facility: [facility] Address: [address] [place] [address] Performed By: #### 5 8410-2 #### [facility] CLIA [id number] [address] WBC (Bld) [#/Vol] 8.00 10*3/uL Normal 3.70-11.00 [facility] Comment on above: Order Comment: Speci men Type: BLOOD SPECIMEN Ordering Facility: [facility] Address: [address] [place] [address] Performed By: #### 5 8410-2 #### [facility] CLIA [id number] [address] CONSULT PROGon 04-20-2024 CONSULT PROG HNO ID: [id number] Author: KYLEE VACNE APRN.TOUCH UP WORKER Service: General Surgery Author Type: Nurse Practitioner [...] 0659 04/20/24 07 - 04/21/24 0659 Shift 2219-6048 5326-6121 1289-9192 24 Hour Total 6904-9877 0533-6016 0360-2144 24 Hour Total INTAKE PO 120 240 350 710 PO 120 240 350 710 IV 600 410 201 3899 Volume (mL) (piperacillin-tazobac araujo iv piggyback 3.375 g in dextrose (iso-osmotic) 50 mL (ZOSYN)) 50 50 100 200 Volume (mL) (vancomycin 750 mg in D5W 250 mL Vial-Bag (VANCOCIN)) 250 250 500 Volume (mL) (lactated ringers iv infusion) 300 300 Shift Total 720 485 593 1044 OUTPUT Urine 2822 247 8037 2200 2200 Straight cath (ml) 0268 210 3385 2200 2200 # of BMs Number of BMs 1 x 1 x 1 x 1 x Blood 20 20 Estimated Blood loss 20 20 Shift Total 20 5663 533 5229 2200 2200 Weight (kg) 54.1 54.1 54.1 [...] (PWD) 1 mg patient's own pump - [facility] placeholder INTRATHECAL CONTINUOUS traZODone 100 [...] 04/15/2024 Pressure injury of right ischium, unstageable ([facility]) 04/14/2024 Pressure injury of right perineal ischial region, unstageable ([facility]) 04/14/2024 Chronic constipation 04/14/2024 Pressure injury of dorsum of left foot, stage 2 ([facility]) 09/22/2022 Chronic pain Paraplegia ([facility]) 12/29/2001 Assessment: 73 year old female with PMHx of CAD, CHF, depression, hemorrhoids, osteoporosis, constipation, intrathecal pain pump, transverse myelitis causing LE paralysis, s/p lap augmentation cystoplasty with ileoileal catheterizable stoma at the umbilicus for neurogenic bladder. CTAP from [facility] showed right sided 8.5x8.3cm subcutaneous abscess extending [...] protein intake (more content not included)... Normal [facility] CONSULT PROG HNO ID: [id number] Author: JIM TORRES MD Service: Infectious Disease Author Type: Physician Type: Consult Progress Note Filed: 04/20/2024 16:46 Note Text: PROGRESS NOTE INFECTIOUS DISEASE BRIEF SUMMARY: 73 year old female Transverse myelitis, neurogenic bladder status post lap augmentation cystoplasty with ileal ileal right sacral,, CAD, hypertension, chronic sacral decubitus ulcer, chronic pain on intrathecal pain pump presented to [facility] 04/13/2024 for 1 week right hip pain [...] Drains, and Airways Line Duration Peripheral 04/14/24 [facility] Short Left Hand 20 Gauge 6 days [...] Units Date/Time WOUND CULTURE AND GRAM STAIN [[id number]] (Abnormal) (Susceptibility) Collected: 04/16/24 1132 Order Status: Completed Specimen: Aspirate/Fine Needle Aspirate from Abscess (Specify site in comment) Updated: 04/19/24 1457 Culture, Wound Rare Staphylococcus aureus Gram Stain No organisms seen Many Polymorphonuclear leukocytes Many Red Blood Cells Agnieszka (more content not included)... Normal [facility] CONSULT PROG HNO ID: [id number] Author: DANNIE LANDEROS RPh Service: Pharmacy Author [...] pharmacy if there are questions. Dannie Landeros [facility] Center Normal [facility] CREATININE BLDon 04-20-2024 Creatinine [Mass/Vol] 0.49 mg/dL Low 0.58-0.96 [facility] Comment on above: Order Comment: Speci men Type: BLOOD SPECIMEN Ordering Facility: [facility] Address: [address] [place] [address] Performed By: #### C RET1 #### [facility] CLIA [id number] [address] [place] [address] [place] Creatinine and Glomerular filtration rate.predicted panel (S/P/Bld) 100 mL/min/1.73m??? Normal >=60 [facility] Comment on above: Order Comment: Speci men Type: BLOOD SPECIMEN Ordering Facility: [facility] Address: [address] [place] [address] Result Comment: Kristina mated Glomerular Filtration Rate [...] By: #### C RET1 #### [facility] CLIA [id number] [address] PT EDon 04-20-2024 PT ED HNO ID: [id number] Author: YUKO PUTNAM RN Service: PICC Team [...] PATIENT EDUCATION SECTION OF THE EMR Normal [facility] ANES POSTPROC EVALon 024 ANES POSTPROC EVAL HNO ID: [id number] Author: MEGAN MAYA MD Service: Anesthesiology Author Type: Physician Type: Anesthesia Postprocedure Evaluation Filed: 04/19/2024 14:08 Note Text: POST ANESTHESIA EVALUATION NOTE : 1950 Procedure Summary Date: 04/19/24 Room / Location: [place] OR OR Anesthesia Start: 1046 Anesthesia Stop: [...] April 19, 2024 TIME: 2:07 PM CSN: [id number] [facility] ANES PRE-OPon 04-19-2024 ANES PRE-OP HNO ID: [id number] Author: MEGAN MAYA MD Service: Anesthesiology Author [...] and consent discussed: yes. Patient / Responsible [employer] agrees to proceed: yes Patient / Surrogate [...] mouth t (more content not included)... Normal [facility] CONSULT PROGon 04-19-2024 CONSULT PROG HNO ID: [id number] Author: FANI ALMODOVAR RPh Service: Hospital Medicine [...] questions, please contact Fani Almodovar, PharmD at [phone]. Age: [age] year old Allergies: ALLERGIES Allergen [...] 16.7 04/15/2024 0908 10.8 Fani Almodovar, CharlineD, [facility] CONSULT PROG HNO ID: [id number] Author: KYLEE VANCE APRN.TOUCH UP WORKER Service: General Surgery Author Type: Nurse Practitioner Type: Consult Progress Note Filed: 04/19/2024 16:53 Note Text: Emergency General Surgery Progress Note SERVICE DATE: April 19, 2024 Emergency General Surgery Service Pager: For questions or concerns Mon-Fri 6a-5p please page [phone]. After 5pm and on Weekends and Holidays, please page [phone] if in ICU or [phone] if on RNF. SUBJECTIVE: EGS is following [...] 0659 04/19/24 0700 - 04/20/24 0659 Shift 2099-7468 0895-9095 24 Hour Total 9950-3632 8335-6719 9411-9470 24 Hour Total INTAKE PO 240 718 [...] (PWD) 1 mg patient's own pump - [facility] placeholder INTRATHECAL CONTINUOUS traZODone 100 [...] 04/15/2024 Pressure injury of right ischium, unstageable ([facility]) 04/14/2024 Pressure injury of right perineal ischial region, unstageable ([facility]) 04/14/2024 Chronic constipation 04/14/2024 Pressure injury of dorsum of left foot, stage 2 ([facility]) 09/22/2022 Chronic pain Paraplegia ([facility]) 12/29/2001 Assessment: 73 year old female with PMHx of CAD, CHF, depression, hemorrhoids, osteoporosis, constipation, intrathecal pain pump, transverse myelitis causing LE paralysis, s/p lap augmentation cystoplasty with ileoileal catheterizable stoma at the umbilicus for neurogenic bladder. CTAP from [place] showed right sided 8.5x8.3cm subcutaneous abscess extending [...] Zosyn and (more content not included)... Normal [facility] Hgb Bld-mCncon 04-19-2024 Hemoglobin (Bld) [Mass/Vol] 8.3 g/dL Low 11.5-15.5 [facility] Comment on above: Order Comment: Speci men Type: BLOOD SPECIMEN Ordering Facility: [facility] Address: [address] [place] [address] Performed By: #### C RET1 #### [facility] CLIA [id number] [address] STATES OF [facility] OPERATIVE NOon 04-19-2024 OPERATIVE NO HNO ID: [id number] Author: JENNIFER JEAN MD Service: General Surgery [...] Time: 3:35 PM OPERATIVE/PROCEDURE REPORT LOG ID: [id number] SURGERY/PROCEDURE DATE: 04/19/2024 INCISION/PROCEDURE START TIME: 11:12 AM INCISION CLOSE/PROCEDURE END TIME: 11:40 AM SURGEON(S)/PROCEDURAL IST(S) AND OVERHEAD CRANE INSPECTOR(S): Surgeons and Role: * Jennifer Jean MD [...] April 19, 2024 TIME: 2:03 PM Normal [facility] CONSULT PROGon 04-18-2024 CONSULT PROG HNO ID: [id number] Author: JIM TORRES MD Service: Infectious Disease Author Type: Physician Type: Consult Progress Note Filed: 04/18/2024 16:59 Note Text: PROGRESS NOTE INFECTIOUS DISEASE BRIEF SUMMARY: 73 year old female Transverse myelitis, neurogenic bladder status post lap augmentation cystoplasty with ileal ileal right sacral,, CAD, hypertension, chronic sacral decubitus ulcer, chronic pain on intrathecal pain pump presented to [facility] 04/13/2024 for 1 week right hip pain [...] Drains, and Airways Line Duration Peripheral 04/14/24 [facility] Short Left Hand 20 Gauge 4 days [...] Units Date/Time WOUND CULTURE AND GRAM STAIN [[id number]] (Abnormal) Collected: (more content not included)... Normal [facility] Culture, Anaerobic Any Sourc nel 04-18-2024 CUAN RIGHT No anaerobic bacteria isolated. Normal [facility] Comment on above: Performed By: #### M 100.4001, M100.3000, M100.1999 ####[facility] [id number] [place], [address] Basic metabolic 2000 panelon 04-17-2024 Anion gap [Moles/Vol] 8 mmol/L Normal 8-15 [facility] Comment on above: Order Comment: Speci men Type: BLOOD SPECIMEN Ordering Facility: [facility] Address: [address] [place] [address] Performed By: #### 5 8410-2 #### [facility] CLIA [id number] 1 [place] [address] [place] Calcium [Mass/Vol] 8.4 mg/dL Low 8.5-10.2 [facility] Comment on above: Order Comment: Speci men Type: BLOOD SPECIMEN Ordering Facility: [facility] Address: [address] [place] [address] Performed By: #### 5 8410-2 #### [facility] CLIA [id number] 1 [place] [address] [place] Chloride [Moles/Vol] 100 mmol/L Normal 98-107 [facility] Comment on above: Order Comment: Speci men Type: BLOOD SPECIMEN Ordering Facility: [facility] Address: [address] [place] [address] Performed By: #### 5 8410-2 #### [facility] CLIA [id number] 1 [place] [address] [place] CO2 [Moles/Vol] 27 mmol/L Normal 22-30 [facility] Comment on above: Order Comment: Speci men Type: BLOOD SPECIMEN Ordering Facility: [facility] Address: [address] [place] [address] Performed By: #### 5 8410-2 #### [facility] CLIA [id number] [address] Creatinine [Mass/Vol] 0.49 mg/dL Low 0.58-0.96 [facility] Comment on above: Order Comment: Shayy abhishek Type: BLOOD SPECIMEN Ordering Facility: [facility] Address: [address] [place] [address] Performed By: #### 5 8410-2 #### [facility] CLIA [id number] [address] Creatinine and Glomerular filtration rate.predicted panel (S/P/Bld) 100 mL/min/1.73m??? Normal >=60 [facility] Comment on above: Order Comment: Shayy abhishek Type: BLOOD SPECIMEN Ordering Facility: [facility] Address: [address] [place] [address] Result Comment: Kristina mated Glomerular Filtration Rate [...] By: #### 5 8410-2 #### [facility] CLIA [id number] [address] Glucose [Mass/Vol] 97 mg/dL Normal 74-99 [facility] Comment on above: Order Comment: Pollyantony weiss Type: BLOOD SPECIMEN Ordering Facility: [facility] Address: [address] [place] [address] Result Comment: The [place] Diabetes Association (ADA) provides guidance for cutoff [...] Standards of Medical Care in Diabetes 2016, [place] [employer]. Diabetes Care. 2016.39(Suppl 1). Performed By: #### 5 8410-2 #### [facility] CLIA [id number] [address] Potassium [Moles/Vol] 4.4 mmol/L Normal 3.7-5.1 [facility] Comment on above: Order Comment: Pollyi men Type: BLOOD SPECIMEN Ordering Facility: [facility] Address: [address] [place] [address] Performed By: #### 5 8410-2 #### [facility] CLIA [id number] [address] Sodium [Moles/Vol] 135 mmol/L Low 136-144 [facility] Comment on above: Order Comment: Pollyi men Type: BLOOD SPECIMEN Ordering Facility: [facility] Address: [address] [place] [address] Performed By: #### 5 8410-2 #### [facility] CLIA [id number] [address] Urea nitrogen [Mass/Vol] 10 mg/dL Normal 7-21 [facility] Comment on above: Order Comment: Pollyi men Type: BLOOD SPECIMEN Ordering Facility: [facility] Address: [address] [place] [address] Performed By: #### 5 8410-2 #### [facility] CLIA [id number] [address] CBC panel Auto (Bld)on 04-17 Erythrocyte distribution width (RBC) [Ratio] 16.0 % High 11.5-15.0 [facility] Comment on above: Order Comment: Speci men Type: BLOOD SPECIMEN Ordering Facility: [facility] Address: [address] [place] [address] Performed By: #### 5 8410-2 #### [facility] CLIA [id number] [address] OF [facility] Hematocrit (Bld) [Volume fraction] 24.9 % Low 36.0-46.0 [facility] Comment on above: Order Comment: Speci men Type: BLOOD SPECIMEN Ordering Facility: [facility] Address: [facility] [place] [address] Performed By: #### 5 8410-2 #### [facility] CLIA [id number] [address] [place] Hemoglobin (Bld) [Mass/Vol] 8.0 g/dL Low 11.5-15.5 [facility] Comment on above: Order Comment: Speci men Type: BLOOD SPECIMEN Ordering Facility: [facility] Address: [address] [place] [address] Performed By: #### 5 8410-2 #### [facility] CLIA [id number] [address] MCH (RBC) [Entitic mass] 32.5 pg Normal 26.0-34.0 [facility] Comment on above: Order Comment: Speci men Type: BLOOD SPECIMEN Ordering Facility: [facility] Address: [address] [place] [address] Performed By: #### 5 8410-2 #### [facility] CLIA [id number] [address] [place] MCHC (RBC) [Mass/Vol] 32.1 g/dL Normal 30.5-36.0 [facility] Comment on above: Order Comment: Speci men Type: BLOOD SPECIMEN Ordering Facility: [facility] Address: [facility] [place] [address] Performed By: #### 5 8410-2 #### [facility] CLIA [id number] [address] [place] MCV (RBC) [Entitic vol] 101.2 fL High 80.0-100.0 [facility] Comment on above: Order Comment: Speci men Type: BLOOD SPECIMEN Ordering Facility: [facility] Address: [address] [place] [address] Performed By: #### 5 8410-2 #### [facility] CLIA [id number] [address] [place] Nucleated RBC (Bld) [#/Vol] 10*3/uL Normal <0.01 [facility] Comment on above: Order Comment: Speci men Type: BLOOD SPECIMEN Ordering Facility: [facility] Address: [address] [place] [address] Performed By: #### 5 8410-2 #### [facility] CLIA [id number] [address] [place] Platelet mean volume (Bld) [Entitic vol] 9.1 fL Normal 9.0-12.7 [facility] Comment on above: Order Comment: Speci men Type: BLOOD SPECIMEN Ordering Facility: [facility] Address: [address] [place] [address] Performed By: #### 5 8410-2 #### [facility] CLIA [id number] [address] OF [place] Platelets (Bld) [#/Vol] 445 10*3/uL High 150-400 [facility] Comment on above: Order Comment: Speci men Type: BLOOD SPECIMEN Ordering Facility: [facility] Address: [address] [place] [address] Performed By: #### 5 8410-2 #### [facility] CLIA [id number] [address] OF [place] RBC (Bld) [#/Vol] 2.46 10*6/uL Low 3.90-5.20 [facility] Comment on above: Order Comment: Speci men Type: BLOOD SPECIMEN Ordering Facility: [facility] Address: [address] [place] [address] Performed By: #### 5 8410-2 #### [facility] CLIA [id number] [address] [place] WBC (Bld) [#/Vol] 8.34 10*3/uL Normal 3.70-11.00 [facility] Comment on above: Order Comment: Speci men Type: BLOOD SPECIMEN Ordering Facility: [facility] Address: [address] [place] [id number] Performed By: #### 5 8410-2 #### [facility] CLIA [id number] [address] OF [facility] CONSULT PROGon 04-17-2024 CONSULT PROG HNO ID: [id number] Author: FANI ALMODOVRA RPh Service: Pharmacy Author Type: Pharmacist Type: [...] any questions, please contact Charline MontanezD at [phone]. Age: [age] year old Allergies: ALLERGIES Allergen [...] 16.7 04/15/2024 0908 10.8 Fani Almodovar, PharmD, [facility] Normal [facility] Vancomycin random [Mass/Vol] on 04-17-2024 Vancomycin [Mass/Vol] 16.7 ug/mL Normal 10.0-20.0 [facility] Comment on above: Order Comment: Speci men Type: BLOOD SPECIMEN Ordering Facility: [facility] Address: [address] [place] [address] Result Comment: Refe rence ranges and high/low indicator flags are provided as general guidelines only. The treating physician must determine appropriate target levels/dosing based on the specific clinical situation. Performed By: #### 4 091-5 #### [facility] CLIA [id number] [address] [place] [address] [place] BRIEF OP NOTon 04-16-2024 BRIEF OP NOT HNO ID: [id number] Author: ENRIQUE OLSEN MD Service: Interventional Radiology Author Type: Physician Type: Brief Op Note Filed: 04/16/2024 11:26 Note Text: BRIEF OPERATIVE / PROCEDURE NOTE LOG ID: [id number] SURGERY/PROCEDURE DATE: 04/16/2024 INCISION/PROCEDURE START TIME: 11:02 AM INCISION CLOSE/PROCEDURE END TIME: 11:22 AM SURGEON(S)/PROCEDURAL IST(S) AND OVERHEAD CRANE INSPECTOR(S): Surgeons and Role: * Enrique Olsen MD, [...] DATE: April 16, 2024 TIME: 11:23 AM [facility] Bacteria Wnd Culton 04-16-20 Bacteria identified Cx [...] , Intermediate >4 , Resistant >8 Abnormal [facility] Comment on above: Performed By: #### 6 462-6 ####[facility] [id number] [place] [address] [place] Basic metabolic 2000 panelon 04-16-2024 Anion gap [Moles/Vol] 7 mmol/L Low 8-15 [facility] Comment on above: Order Comment: Speci men Type: BLOOD SPECIMENOrdering Facility: [facility] Address: [address] [place] [address] Performed By: #### 2 4321-2 ####[facility] [id number] [place] [address] [place] Calcium [Mass/Vol] 8.2 mg/dL Low 8.5-10.2 [facility] Comment on above: Order Comment: Speci men Type: BLOOD SPECIMENOrdering Facility: [facility] Address: [address] [place] [address] Performed By: #### 2 4321-2 ####[facility] [id number] [address] [place] Chloride [Moles/Vol] 105 mmol/L Normal 98-107 [facility] Comment on above: Order Comment: Speci men Type: BLOOD SPECIMENOrdering Facility: [facility] Address: [address] [place] [address] Performed By: #### 2 4321-2 ####[facility] [id number] [address] CO2 [Moles/Vol] 27 mmol/L Normal 22-30 [facility] Comment on above: Order Comment: Speci men Type: BLOOD SPECIMENOrdering Facility: [facility] Address: [address] [place] [address] Performed By: #### 2 4321-2 ####[facility] [id number] [address] Creatinine [Mass/Vol] 0.48 mg/dL Low 0.58-0.96 [facility] Comment on above: Order Comment: Speci men Type: BLOOD SPECIMENOrdering Facility: [facility] Address: [address] [place] [address] Performed By: #### 2 4321-2 ####[id number] [address] Creatinine and Glomerular filtration rate.predicted panel (S/P/Bld) 101 mL/min/1.73m??? Normal >=60 [facility] Comment on above: Order Comment: Speci men Type: BLOOD SPECIMENOrdering Facility: [facility] Address: [address] [place] [address] Result Comment: Kristina mated Glomerular Filtration Rate [...] Performed By: #### 2 4321-2 ####[facility] [id number] [address] Glucose [Mass/Vol] 86 mg/dL Normal 74-99 [facility] Comment on above: Order Comment: Speci men Type: BLOOD SPECIMENOrdering Facility: [facility] Address: [address] [place] [address] Result Comment: The [place] Diabetes Association (ADA) provides guidance for cutoff [...] Standards of Medical Care in Diabetes 2016, [place] [employer]. Diabetes Care. 2016.39(Suppl 1). Performed By: #### 2 4321-2 ####[facility] [id number] [place] [address] [place] Potassium [Moles/Vol] 4.5 mmol/L Normal 3.7-5.1 [facility] Comment on above: Order Comment: Speci men Type: BLOOD SPECIMENOrdering Facility: [facility] Address: [address] [place] [address] Performed By: #### 2 1-2 ####[facility] [id number] [place] [address] [place] Sodium [Moles/Vol] 139 mmol/L Normal 136-144 [facility] Comment on above: Order Comment: Speci men Type: BLOOD SPECIMENOrdering Facility: [facility] Address: [address] [place] [address] Performed By: #### 2 4321-2 ####[facility] [id number] [place] [address] [place] Urea nitrogen [Mass/Vol] 8 mg/dL Normal 7-21 [facility] Comment on above: Order Comment: Speci men Type: BLOOD SPECIMENOrdering Facility: [facility] Address: [address] [place] [address] Performed By: #### 2 4321-2 ####[facility] [id number] [address] CBC panel Auto (Bld)on 04-16 Erythrocyte distribution width (RBC) [Ratio] 16.5 % High 11.5-15.0 [facility] Comment on above: Order Comment: Speci men Type: BLOOD SPECIMEN Ordering Facility: [facility] Address: [address] [place] [address] Performed By: #### 5 8410-2 #### [facility] CLIA [id number] [address] Hematocrit (Bld) [Volume fraction] 23.8 % Low 36.0-46.0 [facility] Comment on above: Order Comment: Speci men Type: BLOOD SPECIMEN Ordering Facility: [facility] Address: [address] [place] [address] Performed By: #### 5 8410-2 #### [facility] CLIA [id number] [address] Hemoglobin (Bld) [Mass/Vol] 7.6 g/dL Low 11.5-15.5 [facility] Comment on above: Order Comment: Speci men Type: BLOOD SPECIMEN Ordering Facility: [facility] Address: [address] [place] [address] Performed By: #### 5 8410-2 #### [facility] CLIA [id number] [address] MCH (RBC) [Entitic mass] 32.6 pg Normal 26.0-34.0 [facility] Comment on above: Order Comment: Speci men Type: BLOOD SPECIMEN Ordering Facility: [facility] Address: [address] [place] [address] Performed By: #### 5 8410-2 #### [facility] CLIA [id number] [address] MCHC (RBC) [Mass/Vol] 31.9 g/dL Normal 30.5-36.0 [facility] Comment on above: Order Comment: Speci men Type: BLOOD SPECIMEN Ordering Facility: [facility] Address: [address] [place] [address] Performed By: #### 5 8410-2 #### [facility] CLIA [id number] [address] MCV (RBC) [Entitic vol] 102.1 fL High 80.0-100.0 [facility] Comment on above: Order Comment: Speci men Type: BLOOD SPECIMEN Ordering Facility: [facility] Address: [address] [place] [address] Performed By: #### 5 8410-2 #### [facility] CLIA [id number] [address] Nucleated RBC (Bld) [#/Vol] 10*3/uL Normal <0.01 [facility] Comment on above: Order Comment: Speci men Type: BLOOD SPECIMEN Ordering Facility: [facility] Address: [address] [place] [address] Performed By: #### 5 8410-2 #### [facility] CLIA [id number] [address] Platelet mean volume (Bld) [Entitic vol] 9.2 fL Normal 9.0-12.7 [facility] Comment on above: Order Comment: Speci men Type: BLOOD SPECIMEN Ordering Facility: [facility] Address: [address] [place] [address] Performed By: #### 5 8410-2 #### [facility] CLIA [id number] [address] OF [place] Platelets (Bld) [#/Vol] 465 10*3/uL High 150-400 [facility] Comment on above: Order Comment: Speci men Type: BLOOD SPECIMEN Ordering Facility: [facility] Address: [facility] [place] [address] Performed By: #### 5 8410-2 #### [facility] CLIA [id number] [address] OF [place] RBC (Bld) [#/Vol] 2.33 10*6/uL Low 3.90-5.20 [facility] Comment on above: Order Comment: Pollyantony weiss Type: BLOOD SPECIMEN Ordering Facility: [facility] Address: [address] [place] [address] Performed By: #### 5 8410-2 #### [facility] CLIA [id number] [address] OF [facility] WBC (Bld) [#/Vol] 6.27 10*3/uL Normal 3.70-11.00 [facility] Comment on above: Order Comment: Speci men Type: BLOOD SPECIMEN Ordering Facility: [facility] Address: [address] [place] [address] Performed By: #### 5 8410-2 #### [facility] CLIA [id number] [address] CONSULT PROGon 04-16-2024 CONSULT PROG HNO ID: [id number] Author: CASE ERICKSON MD Service: General Surgery [...] questions or concerns Mon-Fri 6a-5p please page [phone]. After 5pm and on Weekends and Holidays, please page [phone] if in ICU or [phone] if on RNF. SUBJECTIVE: Patient seen this [...] 04/16/24 0659 04/16/24699 - 04/17/24 0659 Shift 7935-4798 8397-9252 0842-9985 24 Hour Total 4772-6336 5128-5093 7639-3113 24 Hour Total INTAKE PO 240 660 900 PO 240 660 900 Shift Total 240 660 900 OUTPUT Urine 880 330 2091 2800 Void (ml) 152 341 6002 2800 Shift Total 203 080 7279 2800 Weight (kg) 54.1 54.1 54.1 54.1 [...] (PWD) 1 mg patient's own pump - [facility] placeholder INTRATHECAL CONTINUOUS traZODone 100 [...] 04/15/2024 Pressure injury of right ischium, unstageable ([facility]) 04/14/2024 Pressure injury of right perineal ischial region, unstageable ([facility]) 04/14/2024 Chronic constipation 04/14/2024 Pressure injury of dorsum of left foot, stage 2 ([facility]) 09/22/2022 Assessment: 73 year old female [...] placement Pl (more content not included)... Normal [facility] CT ASPIRATION SUBCUT ABSCESS on 04-16-2024 CT ASPIRATION SUBCUT ABSCESS * * *Final Report* * * DATE OF EXAM: Apr 16 2024 11:39AM [facility] 2049 - CT ASPIRATION SUBCUT ABSCESS / PROCEDURE REASON: Abscess * * * * Physician Interpretation * * * * PROCEDURE PERFORMED: CT GUIDED ASPIRATION INDICATION FOR PROCEDURE: The patient is a 73 years old Female who presents with rim-enhancing areas on CT concerning for abscesses. STAFF RADIOLOGIST: Enrique Olsen MD OVERHEAD CRANE INSPECTOR(S): None CONSENT: The risks, benefits, treatment options, [...] performed by the: attending radiologist, without an facilities maintenance assistant. The attending radiologist performed the following procedural [...] CT appearance is compatible with tissue necrosis). Privacy Specialist[facility] Transcribe Date/Time: Apr 18 2024 1:33P Dictated by : ENRIQUE OLSEN MD This examination was interpreted and the report reviewed and electronically signed by: ENRIQUE OLSEN MD on Apr 18 2024 1:38PM EST [id number] N Normal [facility] PT panel Coag (PPP)on 2023 INR Coag (PPP) [Relative time] 1.0 {INR} Normal 0.9-1.3 [facility] Comment on above: Order Comment: Shayy weiss Type: BLOOD SPECIMEN Ordering Facility: [facility] Address: [address] [place] [address] Result Comment: Cyndi min K Antagonist (VKA) Therapeutic Range: INR 2 to 3 (Target INR of 2.5) Note: For patients treated with VKA drugs, such as warfarin, the [place] [employer] 2012 Guideline recommends [...] Chest 2012, 141:7S-47S Ishan RA, et al. [facility] 2017, 70: 252-289 Performed By: #### C RET1 #### [facility] CLIA [id number] [address] [place] PT Coag (PPP) [Time] 11.4 s Normal 9.7-13.0 [facility] Comment on above: Order Comment: Shayy weiss Type: BLOOD SPECIMEN Ordering Facility: [facility] Address: [address] [id number] Performed By: #### C RET1 #### [facility] CLIA [id number] 1 [place] [address] [place] Basic metabolic 2000 panelon 04-15-2024 Anion gap [Moles/Vol] 7 mmol/L Low 8-15 [facility] Comment on above: Order Comment: Shayy weiss Type: BLOOD SPECIMEN Ordering Facility: [facility] Address: [address] [place] [address] Performed By: #### C RET1 #### [facility] CLIA [id number] [address] [place] Calcium [Mass/Vol] 7.7 mg/dL Low 8.5-10.2 [facility] Comment on above: Order Comment: Speci men Type: BLOOD SPECIMEN Ordering Facility: [facility] Address: [address] [place] [address] Performed By: #### C RET1 #### [facility] CLIA [id number] [address] [place] Chloride [Moles/Vol] 99 mmol/L Normal 98-107 [facility] Comment on above: Order Comment: Speci men Type: BLOOD SPECIMEN Ordering Facility: [facility] Address: [address] [place] [address] Performed By: #### C RET1 #### [facility] CLIA [id number] [address] [place] CO2 [Moles/Vol] 26 mmol/L Normal 22-30 [facility] Comment on above: Order Comment: Speci men Type: BLOOD SPECIMEN Ordering Facility: [facility] Address: [address] [place] [address] Performed By: #### C RET1 #### [facility] CLIA [id number] [address] [place] Creatinine [Mass/Vol] 0.38 mg/dL Low 0.58-0.96 [facility] Comment on above: Order Comment: Speci men Type: BLOOD SPECIMEN Ordering Facility: [facility] Address: [address] [place] [address] Performed By: #### C RET1 #### [facility] CLIA [id number] [address] Creatinine and Glomerular filtration rate.predicted panel (S/P/Bld) 107 mL/min/1.73m??? Normal >=60 [facility] Comment on above: Order Comment: Speci men Type: BLOOD SPECIMEN Ordering Facility: [facility] Address: [address] [place] [address] Result Comment: Kristina mated Glomerular Filtration Rate [...] By: #### C RET1 #### [facility] CLIA [id number] 1 [place] [address] [place] Glucose [Mass/Vol] 174 mg/dL High 74-99 [facility] Comment on above: Order Comment: Shayy weiss Type: BLOOD SPECIMEN Ordering Facility: [facility] Address: [address] [place] [address] Result Comment: The [place] Diabetes Association (ADA) provides guidance for cutoff [...] Standards of Medical Care in Diabetes 2016, [place] [employer] Association. Diabetes Care. 2016.39(Suppl 1). Performed By: #### C RET1 #### [facility] CLIA [id number] 1 [place] [address] [place] Potassium [Moles/Vol] Normal [facility] Comment on above: Order Comment: Shayy weiss Type: BLOOD SPECIMEN Ordering Facility: [facility] Address: [address] [place] [address] Result Comment: Unab le to assay due to interference from hemolysis. Suggest reorder as clinically indicated. Performed By: #### C RET1 #### [facility] CLIA [id number] [address] Sodium [Moles/Vol] 132 mmol/L Low 136-144 [facility] Comment on above: Order Comment: Speci men Type: BLOOD SPECIMEN Ordering Facility: [facility] Address: [address] [place] [address] Performed By: #### C RET1 #### [facility] CLIA [id number] [address] [facility] Urea nitrogen [Mass/Vol] 9 mg/dL Normal 7-21 [facility] Comment on above: Order Comment: Speci men Type: BLOOD SPECIMEN Ordering Facility: [facility] Address: [address] [place] [address] Performed By: #### C RET1 #### [facility] CLIA [id number] [address] CBC panel Auto (Bld)on 04-15 Erythrocyte distribution width (RBC) [Ratio] 15.7 % High 11.5-15.0 [facility] Comment on above: Order Comment: Speci men Type: BLOOD SPECIMEN Ordering Facility: [facility] Address: [address] [place] [address] Performed By: #### C RET1 #### [facility] CLIA [id number] [address] Hematocrit (Bld) [Volume fraction] 25.5 % Low 36.0-46.0 [facility] Comment on above: Order Comment: Speci men Type: BLOOD SPECIMEN Ordering Facility: [facility] Address: [address] [place] [address] Performed By: #### C RET1 #### [facility] CLIA [id number] [address] [place] Hemoglobin (Bld) [Mass/Vol] 8.4 g/dL Low 11.5-15.5 [facility] Comment on above: Order Comment: Speci men Type: BLOOD SPECIMEN Ordering Facility: [facility] Address: [facility] [place] [address] Performed By: #### C RET1 #### [facility] CLIA [id number] [address] MCH (RBC) [Entitic mass] 33.3 pg Normal 26.0-34.0 [facility] Comment on above: Order Comment: Speci men Type: BLOOD SPECIMEN Ordering Facility: [facility] Address: [address] [place] [address] Performed By: #### C RET1 #### [facility] CLIA [id number] [address] MCHC (RBC) [Mass/Vol] 32.9 g/dL Normal 30.5-36.0 [facility] Comment on above: Order Comment: Speci men Type: BLOOD SPECIMEN Ordering Facility: [facility] Address: [address] [place] [address] Performed By: #### C RET1 #### [facility] CLIA [id number] [address] MCV (RBC) [Entitic vol] 101.2 fL High 80.0-100.0 [facility] Comment on above: Order Comment: Speci men Type: BLOOD SPECIMEN Ordering Facility: [facility] Address: [address] [place] [address] Performed By: #### C RET1 #### [facility] CLIA [id number] [address] Nucleated RBC (Bld) [#/Vol] 10*3/uL Normal <0.01 [facility] Comment on above: Order Comment: Speci men Type: BLOOD SPECIMEN Ordering Facility: [facility] Address: [address] [place] [address] Performed By: #### C RET1 #### [facility] CLIA [id number] [address] Platelet mean volume (Bld) [Entitic vol] 9.7 fL Normal 9.0-12.7 [facility] Comment on above: Order Comment: Speci men Type: BLOOD SPECIMEN Ordering Facility: [facility] Address: [address] [place] [address] Performed By: #### C RET1 #### [facility] CLIA [id number] [address] Platelets (Bld) [#/Vol] 594 10*3/uL High 150-400 [facility] Comment on above: Order Comment: Speci men Type: BLOOD SPECIMEN Ordering Facility: [facility] Address: [address] [place] [address] Performed By: #### C RET1 #### [facility] CLIA [id number] [address] RBC (Bld) [#/Vol] 2.52 10*6/uL Low 3.90-5.20 [facility] Comment on above: Order Comment: Speci men Type: BLOOD SPECIMEN Ordering Facility: [facility] Address: [address] [place] [address] Performed By: #### C RET1 #### [facility] CLIA [id number] [address] WBC (Bld) [#/Vol] 8.17 10*3/uL Normal 3.70-11.00 [facility] Comment on above: Order Comment: Speci men Type: BLOOD SPECIMEN Ordering Facility: [facility] Address: [address] [place] [address] Performed By: #### C RET1 #### [facility] CLIA [id number] [address] CONSULTon 04-15-2024 CONSULT HNO ID: [id number] Author: JIM TORRES MD Service: Infectious Disease [...] pain on intrathecal pain pump presented to [facility] 04/13/2024 for 1 week right hip pain [...] OF transverse mylitis pos. spasticity Respiratory failure ([facility]) Rosacea Transverse myelitis ([facility]) Unspecified cause of encephalitis, myelitis, and [...] Cancer Father 85 Ischemic Heart Disease Mother [place] ( in 2001) Osteoporosis Mother other (MS) O (more content not included)... Normal [facility] CONSULT PROGon 04-15-2024 CONSULT PROG HNO ID: [id number] Author: FANI ALMODOVAR [facility] Service: Pharmacy Author Type: Pharmacist Type: Consult [...] questions, please contact Fani Almodovar, PharmD at [phone]. Age: [age] year old Allergies: ALLERGIES Allergen [...] Value 04/15/2024 0908 10.8 Fani Almodovar, PharmD, [facility] CONSULT PROG HNO ID: [id number] Author: TARUN HARRIS DO Service: General Surgery [...] - 04/15/2465804/15/24 07 - 12/14/24 0659 Shift 3149-4450 7345-9870 7735-0117 24 Hour Total 1287-1468 0651-7534 3608-9144 24 Hour Total INTAKE IV 1300 1300 Volume (mL) (lactated ringers 500 mL iv bolus) 500 500 Volume (mL) (lactated ringers iv infusion) 800 800 Shift Total 1300 1300 OUTPUT Urine 115 993 8896 Void (ml) 263 343 0106 Shift Total 458 091 9716 Weight (kg) 44.5 54.1 54.1 54.1 54.1 [...] (PWD) 1 mg patient's own pump - [facility] placeholder INTRATHECAL CONTINUOUS traZODone 100 [...] 04/14/2024 Pressure injury of right ischium, unstageable ([facility]) 04/14/2024 Pressure injury of right perineal ischial region, unstageable ([facility]) 04/14/2024 Chronic constipation 04/14/2024 Pressure injury of dorsum of left foot, stage 2 ([facility]) 09/22/2022 Assessment: 73 year old female [...] DATE: April 15, 2024 TIME: 0702 Pager: [phone] Emergency General Surgery Service Pager: For questions or concerns Mon-Fri 6a-5p please page [phone]. After 5pm and on Weekends and Holidays, please page [phone] if in ICU or [phone] if on RNF. Normal [facility] POTASSIUMon 04-15-2024 Potassium [Moles/Vol] 3.7 mmol/L Normal 3.7-5.1 [facility] Comment on above: Order Comment: Speci men Type: BLOOD SPECIMEN Ordering Facility: [facility] Address: [address] [place] [address] Performed By: #### C RET1 #### [facility] CLIA [id number] [address] OF [facility] STAPHYLOCOCCUS AUREUS AND MR SA SCREEN, PCR, NASALon 04-15-2024 S. aureus and MRSA panel PENELOPE+probe (Nose) Methicillin-SUSCEPTIB LE Staphylococcus aureus Detected Abnormal Not Detected [facility] Comment on above: Order Comment: Speci men Type: SWAB Ordering Facility: [facility] Address: [address] [place] [address] Performed By: #### S APCR #### [facility] CLIA [id number] [address] [place] THERAPY NTon 04-15-2024 THERAPY NT HNO ID: [id number] Author: JUAN DIEGO WHALEY OTR/L Service: Occupational Therapy Author Type: Occupational Therapist Type: Therapy (PT/OT/Speech/Resp) Filed: 04/15/2024 14:51 Note Text: Occupational Therapy Evaluation Summary SERVICE DATE: 04/15/2024 SERVICE TIME: 1324 to 1355 ROOM: [id number] OT 6 Clicks Score: 16 DISCHARGE RECOMMENDATIONS [...] of paraplegia 2/2 Transverse myelitis, presented to [facility] from [facility] for 1 week of hip pain with progressive wounds of R hip. 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, CAD, CHF, Depression, intrathecal pump, transverse myelitis HOME LIVING Patient Lives With: Self/Alone Assistance Available: PRN Entry To Home: No Stairs Tub/Shower Type: walk in shower, transfers from w/c to shower bench Laundry: in apartment, pt completes Equipment Owned: Shower Chair, Start Up Specialist, Wheelchair- Manual, Hospital Bed, Wheelchair- Power (slide [...] Time (minutes): 15 $ Evaluation - Moderate (69979) Billed Units: 1 unit TRAINING AND EDUCATION PROVIDED Activity Adaptation/Compensato ry Strategies, Altering Thinking Patterns, Bed Mobility, Benefits of In-Hospital Mobility, Functional Mobility Involving ADLs, Lower Extremity Dressing, Pain Management, Positioning, Precautions/Restricti ons, Role of Occupational Therapy, Safety/Judgment, Sitting Balance to Improve [place]ulk with ADLs/Self-Care, Standing Balance to Improve [place] with ADLs/Self-Care THERAPEUTIC SKILLS USED Activity Dosing, [...] OTR/L PAT (more content not included)... Normal [facility] THERAPY NT HNO ID: [id number] Author: JUAN DIEGO GRIJALVA, PT Service: Physical Therapy Author Type: Physical Therapist Type: Therapy (PT/OT/Speech/Resp) Filed: 04/15/2024 14:47 Note Text: Physical Therapy Evaluation Summary SERVICE DATE: 04/15/2024 SERVICE TIME: 1330 to 1359 ROOM: [place] [id number] PT 6 Clicks Score: 10 DISCHARGE RECOMMENDATIONS [...] 2/2 Transverse myelitis, presented to [facility] from [facility] for 1 week of hip pain with progressive wounds of R hip. 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, CAD, CHF, Depression, intrathecal pump, transverse myelitis HOME LIVING Patient Lives With: Self/Alone Assistance Available: PRN Entry To Home: No Stairs Tub/Shower Type: walk in shower, transfers from w/c to shower bench Laundry: in apartment, pt completes Equipment Owned: Shower Chair, Start Up Specialist, Wheelchair- Manual, Hospital Bed, Wheelchair- Power (slide board) PRIOR FUNCTIONAL LEVEL Within Functional Limits Pt paralyzed from waist down, pt independent with slide board transfers and ADLs SUBJECTIVE Agreeable to PT session THERAPY DIAGNOSIS Reduced mobility-other TREATMENT INTERVENTIONS Evaluation $ Evaluation-Moderate (54044) Billed Units: 1 unit Skilled Treatment Time [...] April 15, 2024 TIME: 2:45 PM Normal [facility] Vancomycin random [Mass/Vol] on 04-15-2024 Vancomycin [Mass/Vol] 10.8 ug/mL Normal 10.0-20.0 [facility] Comment on above: Order Comment: Speci men Type: BLOOD SPECIMEN Ordering Facility: [facility] Address: [address] [place] [address] Result Comment: Refe rence ranges and high/low indicator flags are provided as general guidelines only. The treating physician must determine appropriate target levels/dosing based on the specific clinical situation. Performed By: #### C RET1 #### [facility] CLIA [id number] [address] [place] [address] [place] Wound Cultureon 04-15-2024 WC Normal [facility] Comment on above: Performed By: #### M 100.4001, M100.3000, M100.1999 ####[facility] [id number] [place], [address] ANES POSTPROC EVALon 024 ANES POSTPROC EVAL HNO ID: [id number] Author: YOSELIN QUIROZ MD Service: Anesthesiology Author Type: Anesthesiologist Type: Anesthesia Postprocedure Evaluation Filed: 04/18/2024 22:09 Note Text: POST ANESTHESIA EVALUATION NOTE : 1950 Procedure Summary Date: 04/14/24 Room / Location: [place] OR / [place] OR Anesthesia Start: 1303 Anesthesia Stop: 1415 Procedure: DEBRIDEMENT AND EXCISION SACRAL PRESSURE ULCER, possible drain placement (Sacrum) Diagnosis: Sacral ulcer (HCC) (Sacral ulcer (HCC) [L98.429]) Surgeons: Case Erickson MD Responsible Provider: Yoselin Quiroz MD Anesthesia [...] April 18, 2024 TIME: 10:07 PM CSN: [id number] [facility] ANES PRE-OPon 04-14-2024 ANES PRE-OP HNO ID: [id number] Author: YOSELIN QUIROZ MD Service: Anesthesiology Author [...] and consent discussed: yes. Patient / Responsible Green Party agrees to proceed: yes Patient / Surrogate [...] 375 mg by mouth twice daily. WHEELCHAIR [facility] STANDING WHEELCHAIR I have interviewed and examined the patient. I have reviewed the medical record and/or the pre-anesthesia evaluation, pertinent labs, and test results. This contains updated information obtained within 48 hours of Surgery/Procedure. SIGNATURE: Yoselin Quiroz MD PATIENT NAME: Aleena Andrea DATE: April 14, 2024 TIME: 12:37 PM CSN: [id number] Normal [facility] CK SerPl-cCncon 04-14-2024 CK [Catalytic activity/Vol] 21 U/L Low 42-196 [facility] Comment on above: Order Comment: Speci men Type: BLOOD SPECIMEN Ordering Facility: [facility] Address: [address] [place] [address] Performed By: #### 5 8410-2 #### [facility] CLIA [id number] [address] [place] [address] [place] CONSULTon 04-14-2024 CONSULT HNO ID: [id number] Author: FRANCISCA SWANSON MD Service: Pain Management [...] CAD, CHF, osteoporosis, depression presented 04/13 from [facility] for increased right hip pain and progressive wounds. CTAP from [facility] showed right sided 8.5x8.3cm subcutaneous abscess extending [...] for SBO. Home pain regimen managed by [facility] includes intrathecal pump (Dilaudid, baclofen) oxycodone [...] Cancer Father 85 Ischemic Heart Disease Mother [place] ( in 2001) Osteoporosis Mother other (MS) Other none other (Other) Other No breast/gynecological assistant/colon cancer Colon Cancer Sister 62 PAST MEDICAL [...] general symptoms(780.99) (more content not included)... Normal [facility] CONSULT HNO ID: [id number] Author: CASE ERICKSON MD Service: General Surgery [...] of right side hip wound. Presented to [facility] for right sided hip pain that [...] causes of myelitis Other general symptoms(780.99) Paraplegia ([facility]) PMH - PAST MEDICAL HISTORY OF transverse mylitis pos. spasticity Respiratory failure ([facility]) Rosacea Transverse myelitis ([facility]) Unspecified cause of encephalitis, myelitis, and [...] Cancer Father 85 Ischemic Heart Disease Mother [place] ( in 2001) Osteoporosis Mother other (MS) Other none other (Other) Other No breast/gynecological assistant/colon cancer Colon Cancer Sister 62 Social History [...] Septum midlin (more content not included)... Normal [facility] CONSULT PROGon 04-14-2024 CONSULT PROG HNO ID: [id number] Author: FANI ALMODOVAR RPh Service: Pharmacy Author [...] on 04/13 at 1800 per documentation from [facility]. 2. No vancomycin level has been [...] questions, please contact Fani Almodovar PharmD at [phone]. Age: [age] year old Allergies: ALLERGIES Allergen [...] No results found for: NOVA Almodovar, CharlineD, [facility] CONSULT PROG HNO ID: [id number] Author: RK FERNANDEZ APRN.TOUCH UP WORKER Service: Wound/Ostomy Author Type: Nurse Practitioner Type: Consult Progress Note Filed: 04/14/2024 12:25 Note Text: WOUND CARE SERVICE CONSULT BOILER REPAIRMAN NOTE SERVICE DATE: 04/14/2024 SERVICE TIME: 846 [...] who is seen today with Amina Becerra, Wound/sports intern, and presented to hospital with complaints of [...] Cancer Father 85 Ischemic Heart Disease Mother [place] ( in 2001) Osteoporosis Mother other (MS) Other none other (Other) Other No breast/gynecological assistant/colon cancer Colon Cancer Sister 62 MEDICATIONS: Current [...] Pressure Injury Stage Stage 2 Site Assessment [place];Red;Yellow;Sloug angela Leyla-Wound Assessment Blanchable erythema (more content not included)... Normal [facility] CRP SerPl-mCncon 04-14-2024 CRP [Mass/Vol] 2.3 mg/dL High <0.9 [facility] Comment on above: Order Comment: Speci men Type: BLOOD SPECIMEN Ordering Facility: [facility] Address: [address] [place] [address] Performed By: #### 5 8410-2 #### [facility] CLIA [id number] [address] ED NOTEon 04-14-2024 ED NOTE HNO ID: [id number] Author: CASSANDRA LAMB, EFE Service: Nursing Author [...] aware and informed Dr. Brenner as well. [facility] ED NOTE HNO ID: [id number] Author: ANAIS LEYVA RN Service: ? Author Type: Registered Nurse Type: ED Notes Filed: 04/14/2024 10:13 Note Text: Patient and sister states that BP is usually 90s systolic and as low at 70s systolic with medications. Patient asymptomatic at this time besides pain Normal [facility] ED NOTE HNO ID: [id number] Author: ANAIS LEYVA RN Service: ? Author Type: Registered Nurse Type: ED Notes Filed: 04/14/2024 09:09 Note Text: Wound care at bedside [facility] ED NOTE HNO ID: [id number] Author: ANAIS LEYVA RN Service: ? Author Type: Registered Nurse Type: ED Notes Filed: 04/14/2024 08:04 Note Text: House resident at bedside [facility] ED NOTE HNO ID: [id number] Author: ANAIS LEYVA RN Service: ? Author Type: Registered Nurse Type: ED Notes Filed: 04/14/2024 07:44 Note Text: Spoke with admitting MD regaurding low BP, awaiting order for additional fluids. Per request by MD, will page is systolic BP drops below 80 systolic Normal [facility] ED NOTE HNO ID: [id number] Author: ANAIS LEYVA RN Service: ? Author Type: Registered Nurse Type: ED Notes Filed: 04/14/2024 07:35 Note Text: Report received from previous RN. Pt on NIBP, SpO2 and monitor car operator. Side rails up x2, bed low and locked, call light in reach. Patient resting comfortably at this time. BP remains low, patient appears tired but easily awaken and AANDO x3. Admitting team paged about low pressures. Normal [facility] ED NOTE HNO ID: [id number] Author: CLAUDIO MCCLOUD RN Service: ? Author Type: Registered Nurse Type: ED Notes Filed: 04/14/2024 03:15 Note Text: Bed: 17-ED Expected date: Expected time: Means of arrival: Comments: Room 45 Normal [facility] ED PROV NOTEon 04-14-2024 ED PROV NOTE HNO ID: [id number] Author: CANDELARIA ACUNA DO Service: Emergency Medicine [...] BRENNER 04/14/2424 CANDELARIA ACUNA 04/15/24 0859 Normal [facility] ED PROV NOTE HNO ID: [id number] Author: CANDELARIA ACUNA DO Service: Emergency Medicine [...] presents with: Functional Transfers: Pt transferred from [place] by EMS for a wound and plastics consult. Pt has 3 progressive wounds on her right hip. HPI Patient is a 73-year-old female with a history of transverse myelitis, bilateral lower extremity paralysis, and CHF who presents to the ED as a transfer from the [place] emergency department for surgical consultation. The patient states that she was diagnosed with colitis in late March and treated in the [facility]. She was then discharged to inpatient rehab but was found to have multiple sacral pressure ulcers while at rehab. She then began seeing wound care at [facility]. When she went in for wound care today she was told to go to the [place] ED due to concern that her sacral ulcers were infected. At the [place] emergency department a CT abdomen pelvis was performed which displayed large right sided subcutaneous abscess extending into the right ischial rectal fossa along with extensive soft tissue edema/cellulitis. She denies any fevers,chills, abdominal pain, nausea, or vomiting. PAST MEDICAL HISTORY Diagnosis Date Acute gastritis without mention of hemorrhage Anemia, unspecified CAD (coronary artery disease) CHF (congestive heart failure) ([facility]) Chronic pain Depression Dysphagia Internal hemorrhoids [...] spasticity Respiratory failure (HCC) Rosacea Transverse myelitis ([facility]) Unspecified cause of encephalitis, myelitis, and [...] Cancer Father 85 Ischemic Heart Disease Mother [place] ( in 2001) Osteoporosis Mother other (MS) Other none other (Other) Other No breast/gynecological assistant/colon cancer Colon Cancer Sister 62 Social History [...] 1) Physical (more content not included)... Normal [facility] ESR Westergren method (Bld) [Velocity]on 04-14-2024 ESR (Bld) [Velocity] 44 mm/h High 0-20 [facility] Comment on above: Order Comment: Speci men Type: BLOOD SPECIMEN Ordering Facility: [facility] Address: [address] [place] [address] Performed By: #### 5 8410-2 #### [facility] CLIA [id number] [address] [place] [address] [place] Gram Stainon 04-14-2024 GS RIGHT Gram Stain Rare Gram positive cocci 2+ Red Blood Cells No Epithelial cells Normal [facility] Comment on above: Performed By: #### M 100.4001, M100.3000, M100.1999 ####[facility] [address] [place], [address] HISTORY PHYSICALon 4 HISTORY PHYSICAL HNO ID: [id number] Author: CASE PHAN MD Service: Hospital Medicine Author Type: Resident Type: H&P Filed: 04/14/2024 21:16 Note Text: Attestation signed by Case Phan MD at 04/14/2024 9:16 PM [facility] ATTENDING ATTESTATION: I saw and evaluated the patient on rounds on 04/14/24. Discussed case with the medicine team and agree with resident's findings and plan as documented in the resident's note. I spent a total of >75 minutes on the date of the service which included preparing to see the patient, [id number]-[id number] patient care, completing clinical documentation, obtaining and/or reviewing separately obtained history, and performing a medically appropriate examination. See additional comments of progress notes on 04/14/2024. Case Phan MD [facility] PATIENT NAME: Aleena Andrea ADMITTED FOR: [...] tizanidine, naproxen Patient presented to [facility] from [place] ED by EMS for hip pain for 1 week with progressive wounds on R hip. CTAP from [place] showed right sided 8.5x8.3cm subcutaneous abscess extending [...] (coronary artery disease) CHF (congestive heart failure) ([facility]) Chronic pain Depression Dysphagia Internal hemorrhoids without mention of complication Migraine, unspecified, without mention of intractable migraine without mention of status migrainosus Mononeuritis of unspecified site 07/02 Neuropathy Nonorganic sleep disorder, unspecified Nonspecific abnormal finding in stool contents Osteoporosis, unspecified Other causes of myelitis Other general symptoms(780.99) Paraplegia ([facility]) PMH - PAST MEDICAL HISTORY OF [...] Cancer Father 85 Ischemic Heart Disease Mother [place] ( in 2001) Osteoporosis Mother other (MS) Other none other (Other) Other No breast/gynecological assistant/colon cancer Colon Cancer Sister 62 Social History [...] tablets by (more content not included)... Normal [facility] HbA1c (Bld)on 04-14-2024 Average glucose Estimated from glycated hemoglobin (Bld) [Mass/Vol] 82 mg/dL Normal [facility] Comment on above: Order Comment: Speci men Type: BLOOD SPECIMEN Ordering Facility: [facility] Address: [address] [place] [address] Result Comment: eAG: (Estimated average glucose) is a calculated value from HgbA1c and is herbicide service sales representative of the average blood glucose level in the last 2-3 month period. Performed By: #### 5 8410-2 #### [facility] CLIA [id number] 1 [place] [address] [place] HbA1c (Bld) [Mass fraction] 4.5 % Normal 4.3-5.6 [facility] Comment on above: Order Comment: Shayy abhishek Type: BLOOD SPECIMEN Ordering Facility: [facility] Address: [address] [place] [address] Result Comment: Amer ican Diabetes Association guidelines indicate that patients with HgbA1c in the range 5.7-6.4% are at increased risk for development of diabetes, and intervention by lifestyle modification may be beneficial. HgbA1c greater or equal to 6.5% is considered diagnostic of diabetes. Performed By: #### 5 8410-2 #### [facility] CLIA [id number] [address] [place] LIPID PANEL, NONFASTINGon Cholesterol [Mass/Vol] 89 mg/dL Normal <200 [facility] Comment on above: Order Comment: Shayy abhishek Type: BLOOD SPECIMEN Ordering Facility: [facility] Address: [address] [place] [address] Result Comment: <200 mg/dL, Desirable 200-239 mg/dL, Borderline high >239 mg/dL, High Performed By: #### 5 8410-2 #### [facility] CLIA [id number] [address] [place] HDL CHOLESTEROL, NF 29 mg/dL Low >39 [facility] Comment on above: Order Comment: Shayy abhishek Type: BLOOD SPECIMEN Ordering Facility: [facility] Address: [address] [place] [address] Result Comment: 40-5 9 mg/dL, Acceptable >59 mg/dL, High: Negative risk factor for coronary heart disease <40 mg/dL, Low: Positive risk factor for coronary heart disease Performed By: #### 5 8410-2 #### [facility] CLIA [id number] [address] [place] LDL CHOLESTEROL, NF 51 mg/dL Normal <100 [facility] Comment on above: Order Comment: Shayy abhishek Type: BLOOD SPECIMEN Ordering Facility: [facility] Address: [address] [place] [address] Result Comment: <100 mg/dL, Optimal 100-129 mg/dL, Near optimal/above optimal 130-159 mg/dL, Borderline high 160-189 mg/dL, High >189 mg/dL, Very high Secondary prevention optimal LDL Cholesterol levels are recommended to be < 70 mg/dL Performed By: #### 5 8410-2 #### [facility] CLIA [id number] [address] LDL/HDL RATIO, NF 1.76 mg/dL Normal <2.54 [facility] Comment on above: Order Comment: Speci men Type: BLOOD SPECIMEN Ordering Facility: [facility] Address: [address] [place] [address] Result Comment: Refe rence: 1. National Cholesterol Education Program ATP III Guideline At-A-Glance Quick Desk Reference: National Heart, Lung, and Blood [place]. National Institutes of Health. 2001: NIH Publication No. 01-3305. 2. An International Atherosclerosis Society position paper: global recommendations for the management of dyslipidemia: executive summary, Atherosclerosis. 2014: 232(2):410-413. Performed By: #### 5 8410-2 #### [facility] CLIA [id number] [address] NON HDL CHOL, NF 60 mg/dL Normal <130 [facility] Comment on above: Order Comment: Shayy abhishek Type: BLOOD SPECIMEN Ordering Facility: [facility] Address: [address] [place] [address] Result Comment: <130 mg/dL, Optimal 130-159 mg/dL, Near optimal/above optimal 160-189 mg/dL, Borderline high 190-219 mg/dL, High >219 mg/dL, Very high Secondary prevention optimal non HDL Cholesterol levels are recommended to be <100 mg/dL Performed By: #### 5 8410-2 #### [facility] CLIA [id number] [address] T CHOL/HDL RATIO NF 3.07 mg/dL Normal <5.10 [facility] Comment on above: Order Comment: Shayy abhishek Type: BLOOD SPECIMEN Ordering Facility: [facility] Address: [address] [place] [address] Performed By: #### 5 8410-2 #### [facility] CLIA [id number] [address] TRIGLYCERIDES, NF 47 mg/dL Normal <150 [facility] Comment on above: Order Comment: Speci men Type: BLOOD SPECIMEN Ordering Facility: [facility] Address: [address] [place] [address] Result Comment: <150 mg/dL, Normal 150-199 mg/dL, Borderline high 200-499 mg/dL, High >499 mg/dL, Very high Performed By: #### 5 8410-2 #### [facility] CLIA [id number] [address] VLDL CHOLESTEROL, NF 9 mg/dL Normal <30 [facility] Comment on above: Order Comment: Specantony weiss Type: BLOOD SPECIMEN Ordering Facility: [facility] Address: [address] [place] [address] Performed By: #### 5 8410-2 #### [facility] CLIA [id number] [address] NURSING PROGon 04-14-2024 NURSING PROG HNO ID: [id number] Author: ABDIAZIZ CONDE RN Service: Nursing Author [...] note was completed by: Abdiaziz Conde RN [facility] OPERATIVE NOon 04-14-2024 OPERATIVE NO HNO ID: [id number] Author: CASE ERICKSON MD Service: General Surgery Author Type: Resident Type: Operative Report Filed: 04/30/2024 16:14 Note Text: Attestation signed by Case Erickson MD at 04/30/2024 4:14 PM Attestation: I was present for the critical and alvarez portions of the surgery and I was immediately available to provide assistance. Case Erickson MD OPERATIVE/PROCEDURE REPORT LOG ID: [id number] Surgery/Procedure Date: 04/14/2024 Incision/Procedure Start Time: 1:18 PM Incision Close/Procedure End Time: 1:36 PM Surgeon(s)/Procedural ist(s) and Cna Caregiver(s): Surgeons and Role: * Case Erickson MD [...] TIME: 2:28 PM PAGER/CONTACT #: [phone] Normal [facility] Urinalysis complete panel (U )on 04-14-2024 Bilirubin Ql (U) Negative Normal Negative [facility] Comment on above: Order Comment: Speci men Type: BLOOD SPECIMEN Ordering Facility: [facility] Address: [address] [place] [address] Performed By: #### 5 8410-2 #### [facility] CLIA [id number] 1 [place] [address] [place] Clarity (Unsp spec) Clear Normal Clear [facility] Comment on above: Order Comment: Speci men Type: BLOOD SPECIMEN Ordering Facility: [facility] Address: [address] [place] [address] Performed By: #### 5 8410-2 #### [facility] CLIA [id number] [address] [place] Color (U) Light Yellow Normal yellow [facility] Comment on above: Order Comment: Speci men Type: BLOOD SPECIMEN Ordering Facility: [facility] Address: [address] [place] [address] Performed By: #### 5 8410-2 #### [facility] CLIA [id number] [address] Glucose Test strip (U) [Mass/Vol] Negative Normal Trace, Negative [facility] Comment on above: Order Comment: Speci men Type: BLOOD SPECIMEN Ordering Facility: [facility] Address: [address] [place] [address] Performed By: #### 5 8410-2 #### [facility] CLIA [id number] [address] Hemoglobin Ql (U) Negative Normal Negative, Trace [facility] Comment on above: Order Comment: Speci men Type: BLOOD SPECIMEN Ordering Facility: [facility] Address: [facility] [place] [address] Performed By: #### 5 8410-2 #### [facility] CLIA [id number] [address] Ketones Ql (U) Negative Normal Negative, Trace [facility] Comment on above: Order Comment: Speci men Type: BLOOD SPECIMEN Ordering Facility: [facility] Address: [address] [place] [address] Performed By: #### 5 8410-2 #### [facility] CLIA [id number] [address] Leukocyte esterase Test strip Ql (U) Negative Normal Negative, 25 Ivania/uL [facility] Comment on above: Order Comment: Speci men Type: BLOOD SPECIMEN Ordering Facility: [facility] Address: [address] [place] [address] Performed By: #### 5 8410-2 #### [facility] CLIA [id number] [address] Nitrite Ql (U) Negative Normal Negative [facility] Comment on above: Order Comment: Speci men Type: BLOOD SPECIMEN Ordering Facility: [facility] Address: [address] [place] [address] Performed By: #### 5 8410-2 #### [facility] CLIA [id number] [address] pH (U) 7.0 [pH] Normal 5.0-8.0 [facility] Comment on above: Order Comment: Speci men Type: BLOOD SPECIMEN Ordering Facility: [facility] Address: [address] [place] [address] Performed By: #### 5 8410-2 #### [facility] CLIA [id number] [address] Protein (U) [Mass/Vol] Negative Normal Trace , Negative [facility] Comment on above: Order Comment: Speci men Type: BLOOD SPECIMEN Ordering Facility: [facility] Address: [address] [place] [address] Performed By: #### 5 8410-2 #### [facility] CLIA [id number] [address] RBC LM.HPF (Urine sed) [#/Area] 3-5 /HPF Abnormal 0-3 /HPF [facility] Comment on above: Order Comment: Speci men Type: BLOOD SPECIMEN Ordering Facility: [facility] Address: [address] [place] [address] Performed By: #### 5 8410-2 #### [facility] CLIA [id number] [address] Specific gravity (U) [Rel density] 1.015 Normal 1.005-1.030 [facility] Comment on above: Order Comment: Speci men Type: BLOOD SPECIMEN Ordering Facility: [facility] Address: [address] [place] [address] Performed By: #### 5 8410-2 #### [facility] CLIA [id number] [address] Urobilinogen Ql (U) Normal Normal Normal [facility] Comment on above: Order Comment: Speci men Type: BLOOD SPECIMEN Ordering Facility: [facility] Address: [address] [place] [address] Performed By: #### 5 8410-2 #### [facility] CLIA [id number] [address] [place] WBC LM.HPF (Urine sed) [#/Area] 0-5 /HPF Normal 0-5 /HPF [facility] Comment on above: Order Comment: Speci men Type: BLOOD SPECIMEN Ordering Facility: [facility] Address: [address] [place] [address] Performed By: #### 5 8410-2 #### [facility] CLIA [id number] [address] [place] Bacteria Bld Culton 04-13-20 24 Bacteria identified Cx Nom (Bld) CULTURE, BLOOD: No growth 5 days Normal [facility] Comment on above: Performed By: #### 6 00-7 #### [facility] CLIA [id number] [address] OF [facility] Bacteria identified Cx Nom (Bld) ORGANISM ID: 1 Culture report of Staphylococcus hominis Probable contaminant. Susceptibility testing will not be performed. Call lab within 72 hours to initiate workup if clinically indicated. GRAM STAIN: Gram positive cocci in clusters Abnormal [facility] Comment on above: Performed By: #### I DBCGP, 600-7 ####[facility] [id number] [address] [place] Basic Metabolic Profile (BMP )on 04-13-2024 BUN/CRE 22.4 RATIO High 10-20 [facility] Comment on above: Performed By: #### L 101.9900, L501.6710, L100.0100, L500.2500 ####[facility] [address] [place], [address] CA,Total 8.0 mg/dL Low 8.5-10.1 [facility] Comment on above: Performed By: #### L 101.9900, L501.6710, L100.0100, L500.2500 ####[facility] [address] [place], [address] Chloride [Moles/Vol] 98 mmol/L Normal 98-107 [facility] Comment on above: Performed By: #### L 101.9900, L501.6710, L100.0100, L500.2500 ####[facility] [address] [place], [address] CO2 [Moles/Vol] 30.0 mmol/L Normal 21.0-32.0 [facility] Comment on above: Performed By: #### L 101.9900, L501.6710, L100.0100, L500.2500 ####[facility] [address] [place], [address] Creatinine [Mass/Vol] 0.40 mg/dL Low 0.55-1.02 [facility] Comment on above: Result Comment: The validity of the calculated GFR GFRAA in patients over70 years has not been determined. Clinical correlation isessential. Performed By: #### L 101.9900, L501.6710, L100.0100, L500.2500 ####[facility] [address] [place], [address] ECRCL 50.27 ml/min Normal [facility] Comment on above: Performed By: #### L 101.9900, L501.6710, L100.0100, L500.2500 ####[facility] [address] [place], [address] EST GFR - AA 200 mL/min Normal >60 [facility] Comment on above: Result Comment: Afri can [place] GFR Calc Performed By: #### L 101.9900, L501.6710, L100.0100, L500.2500 ####[facility] [address] [place], [address] GAP 2 Low 5-15 [facility] Comment on above: Performed By: #### L 101.9900, L501.6710, L100.0100, L500.2500 ####[facility] [address] [place], [address] GFR/1.73 sq M.predicted among non-blacks MDRD (S/P/Bld) [Vol rate/Area] 165 mL/min/{1.73_m2} Normal >60 [facility] Comment on above: Result Comment: Non- GFR Calc Performed By: #### L 101.9900, L501.6710, L100.0100, L500.2500 ####[facility] [address] [place], [address] Glucose [Mass/Vol] 126 mg/dL High 74-106 [facility] Comment on above: Result Comment: Fast ing Glucose result greater than or equal to 126 mg/dLsuggests DIABETES MELLITUS per A.D.A. criteria. Performed By: #### L 101.9900, L501.6710, L100.0100, L500.2500 ####[facility] [address] [place], [address] Potassium [Moles/Vol] 4.1 mmol/L Normal 3.5-5.1 [facility] Comment on above: Performed By: #### L 101.9900, L501.6710, L100.0100, L500.2500 ####[facility] [address] [place], [address] Sodium [Moles/Vol] 130 mmol/L Low 136-145 [facility] Comment on above: Performed By: #### L 101.9900, L501.6710, L100.0100, L500.2500 ####[facility] [address] [place], [address] Urea nitrogen [Mass/Vol] 9 mg/dL Normal 7-18 [facility] Comment on above: Performed By: #### L 101.9900, L501.6710, L100.0100, L500.2500 ####[facility] [address] [place], [address] CBC W Auto Differential pane l (Bld)on 04-13-2024 Basophils (Bld) [#/Vol] 0.09 10*3/uL Normal <0.11 [facility] Comment on above: Order Comment: Speci men Type: BLOOD SPECIMEN Ordering Facility: [facility] Address: [address] [place] [address] Performed By: #### 5 7021-8 #### [facility] CLIA [id number] [address] [place] Basophils/100 WBC (Bld) 0.8 % Normal [facility] Comment on above: Order Comment: Speci men Type: BLOOD SPECIMEN Ordering Facility: [facility] Address: [address] [place] [address] Performed By: #### 5 7021-8 #### [facility] CLIA [id number] [address] [place] Differential cell count method Nom (Bld) Auto Normal [facility] Comment on above: Order Comment: Speci men Type: BLOOD SPECIMEN Ordering Facility: [facility] Address: [address] [place] [address] Performed By: #### 5 7021-8 #### [facility] CLIA [id number] [address] [place] Eosinophils (Bld) [#/Vol] 0.11 10*3/uL Normal <0.46 [facility] Comment on above: Order Comment: Speci men Type: BLOOD SPECIMEN Ordering Facility: [facility] Address: [address] [place] [address] Performed By: #### 5 7021-8 #### [facility] CLIA [id number] [address] [place] Eosinophils/100 WBC (Bld) 1.0 % Normal [facility] Comment on above: Order Comment: Speci men Type: BLOOD SPECIMEN Ordering Facility: [facility] Address: [address] [place] [address] Performed By: #### 5 7021-8 #### [facility] CLIA [id number] [address] [place] Erythrocyte distribution width (RBC) [Ratio] 15.8 % High 11.5-15.0 [facility] Comment on above: Order Comment: Speci men Type: BLOOD SPECIMEN Ordering Facility: [facility] Address: [address] [place] [address] Performed By: #### 5 7021-8 #### [facility] CLIA [id number] [address] [place] Hematocrit (Bld) [Volume fraction] 28.1 % Low 36.0-46.0 [facility] Comment on above: Order Comment: Speci men Type: BLOOD SPECIMEN Ordering Facility: [facility] Address: [address] [place] [address] Performed By: #### 5 7021-8 #### [facility] CLIA [id number] [address] [place] Hemoglobin (Bld) [Mass/Vol] 9.0 g/dL Low 11.5-15.5 [facility] Comment on above: Order Comment: Speci men Type: BLOOD SPECIMEN Ordering Facility: [facility] Address: [address] [place] [address] Performed By: #### 5 7021-8 #### [facility] CLIA [id number] [address] [facility] Immature granulocytes (Bld) [#/Vol] 0.24 10*3/uL High <0.10 [facility] Comment on above: Order Comment: Speci men Type: BLOOD SPECIMEN Ordering Facility: [facility] Address: [address] [place] [address] Performed By: #### 5 7021-8 #### [facility] CLIA [id number] [address] OF [place] Immature granulocytes/100 WBC (Bld) 2.1 % Normal [facility] Comment on above: Order Comment: Speci men Type: BLOOD SPECIMEN Ordering Facility: [facility] Address: [address] [place] [address] Performed By: #### 5 7021-8 #### [facility] CLIA [id number] [address] Lymphocytes (Bld) [#/Vol] 1.16 10*3/uL Normal 1.00-4.0 0 [facility] Comment on above: Order Comment: Speci men Type: BLOOD SPECIMEN Ordering Facility: [facility] Address: [address] [place] [address] Performed By: #### 5 7021-8 #### [facility] CLIA [id number] [address] Lymphocytes/100 WBC (Bld) 10.0 % Normal [facility] Comment on above: Order Comment: Speci men Type: BLOOD SPECIMEN Ordering Facility: [facility] Address: [address] [place] [address] Performed By: #### 5 7021-8 #### [facility] CLIA [id number] [address] MCH (RBC) [Entitic mass] 32.5 pg Normal 26.0-34.0 [facility] Comment on above: Order Comment: Speci men Type: BLOOD SPECIMEN Ordering Facility: [facility] Address: [address] [place] [address] Performed By: #### 5 7021-8 #### [facility] CLIA [id number] [address] MCHC (RBC) [Mass/Vol] 32.0 g/dL Normal 30.5-36.0 [facility] Comment on above: Order Comment: Speci men Type: BLOOD SPECIMEN Ordering Facility: [facility] Address: [address] [place] [address] Performed By: #### 5 7021-8 #### [facility] CLIA [id number] [address] MCV (RBC) [Entitic vol] 101.4 fL High 80.0-100.0 [facility] Comment on above: Order Comment: Speci men Type: BLOOD SPECIMEN Ordering Facility: [facility] Address: [address] [place] [address] Performed By: #### 5 7021-8 #### [facility] CLIA [id number] [address] [place] Monocytes (Bld) [#/Vol] 0.69 10*3/uL Normal <0.87 [facility] Comment on above: Order Comment: Speci men Type: BLOOD SPECIMEN Ordering Facility: [facility] Address: [address] [place] [address] Performed By: #### 5 7021-8 #### [facility] CLIA [id number] [address] Monocytes/100 WBC (Bld) 6.0 % Normal [facility] Comment on above: Order Comment: Speci men Type: BLOOD SPECIMEN Ordering Facility: [facility] Address: [address] [place] [address] Performed By: #### 5 7021-8 #### [facility] CLIA [id number] [address] [place] Neutrophils (Bld) [#/Vol] 9.28 10*3/uL High 1.45-7.5 0 [facility] Comment on above: Order Comment: Speci men Type: BLOOD SPECIMEN Ordering Facility: [facility] Address: [address] [place] [address] Performed By: #### 5 7021-8 #### [facility] CLIA [id number] [address] [place] Neutrophils/100 WBC (Bld) 80.1 % Normal [facility] Comment on above: Order Comment: Speci men Type: BLOOD SPECIMEN Ordering Facility: [facility] Address: [address] [place] [address] Performed By: #### 5 7021-8 #### [facility] CLIA [id number] [address] [place] Nucleated RBC (Bld) [#/Vol] 10*3/uL Normal <0.01 [facility] Comment on above: Order Comment: Speci men Type: BLOOD SPECIMEN Ordering Facility: [facility] Address: [address] [place] [address] Performed By: #### 5 7021-8 #### [facility] CLIA [id number] [address] [place] Nucleated RBC/100 WBC (Bld) [Ratio] 0.0 /100 WBC Normal [facility] Comment on above: Order Comment: Speci men Type: BLOOD SPECIMEN Ordering Facility: [facility] Address: [address] [place] [address] Performed By: #### 5 7021-8 #### [facility] CLIA [id number] [address] [place] Platelet mean volume (Bld) [Entitic vol] 9.0 fL Normal 9.0-12.7 [facility] Comment on above: Order Comment: Speci men Type: BLOOD SPECIMEN Ordering Facility: [facility] Address: [address] [place] [address] Performed By: #### 5 7021-8 #### [facility] CLIA [id number] [address] [place] Platelets (Bld) [#/Vol] 617 10*3/uL High 150-400 [facility] Comment on above: Order Comment: Speci men Type: BLOOD SPECIMEN Ordering Facility: [facility] Address: [address] [place] [address] Performed By: #### 5 7021-8 #### [facility] CLIA [id number] [address] [place] RBC (Bld) [#/Vol] 2.77 10*6/uL Low 3.90-5.20 [facility] Comment on above: Order Comment: Speci men Type: BLOOD SPECIMEN Ordering Facility: [facility] Address: [address] [place] [address] Performed By: #### 5 7021-8 #### [facility] CLIA [id number] 1 [place] [address] [place] WBC (Bld) [#/Vol] 11.57 10*3/uL High 3.70-11.00 [facility] Comment on above: Order Comment: Speci men Type: BLOOD SPECIMEN Ordering Facility: [facility] Address: [address] [place] [address] Performed By: #### 5 7021-8 #### [facility] CLIA [id number] 1 [place] [address] [place] CBC W/Diff, Automatedon 12- Absolute Lymph 0.56 X10 3/uL Low 0.83-4.51 [facility] Comment on above: Performed By: #### L 101.9900, L501.6710, L100.0100, L500.2500 ####[facility] [address] [place], [address] Absolute Neut 10.1 X10 3/uL High 2.0-7.7 [facility] Comment on above: Performed By: #### L 101.9900, L501.6710, L100.0100, L500.2500 ####[facility] [address] [place], [address] Basophils/100 WBC (Bld) 0.6 % Normal 0-1 [facility] Comment on above: Performed By: #### L 101.9900, L501.6710, L100.0100, L500.2500 ####[facility] [address] [place], [address] Eosinophils/100 WBC (Bld) 0.4 % Normal 0-5 [facility] Comment on above: Performed By: #### L 101.9900, L501.6710, L100.0100, L500.2500 ####[facility] [address] [place], [address] Erythrocyte distribution width (RBC) [Ratio] 15.8 % High 11.6-14.6 [facility] Comment on above: Performed By: #### L 101.9900, L501.6710, L100.0100, L500.2500 ####[facility] [address] [place], [address] Hematocrit (Bld) [Volume fraction] 26.6 % Low 37-47 [facility] Comment on above: Performed By: #### L 101.9900, L501.6710, L100.0100, L500.2500 ####[facility] [address] [place], [address] Hemoglobin (Bld) [Mass/Vol] 8.6 g/dL Low 12.0-15.0 [facility] Comment on above: Performed By: #### L 101.9900, L501.6710, L100.0100, L500.2500 ####[facility] [address] [place], [address] IG% 1.700 High 0.0-0.9 [facility] Comment on above: Result Comment: IG% - Immature Granulocytes (promyelocytes, myelocytes andmetamyelocytes) > 1% indicates that a LEFT SHIFT is Present. Performed By: #### L 101.9900, L501.6710, L100.0100, L500.2500 ####[facility] [address] [place], [address] Lymphocytes/100 WBC (Bld) 4.7 % Low 19-41 [facility] Comment on above: Performed By: #### L 101.9900, L501.6710, L100.0100, L500.2500 ####[facility] [address] [place], [address] MCH (RBC) [Entitic mass] 31.9 pg Normal 27.0-32.0 [facility] Comment on above: Performed By: #### L 101.9900, L501.6710, L100.0100, L500.2500 ####[facility] [address] [place], [address] MCHC (RBC) [Mass/Vol] 32.3 g/dL Normal 32-36 [facility] Comment on above: Performed By: #### L 101.9900, L501.6710, L100.0100, L500.2500 ####[facility] [address] [place], [address] MCV (RBC) [Entitic vol] 98.5 fL Normal 81-99 [facility] Comment on above: Performed By: #### L 101.9900, L501.6710, L100.0100, L500.2500 ####[facility] [address] [place], [address] Monocytes/100 WBC (Bld) 8.0 % Normal 0-10 [facility] Comment on above: Performed By: #### L 101.9900, L501.6710, L100.0100, L500.2500 ####[facility] [address] [place], [address] Neutrophils/100 WBC (Bld) 84.6 % High 47-70 [facility] Comment on above: Performed By: #### L 101.9900, L501.6710, L100.0100, L500.2500 ####[facility] [address] [place], [address] Nucleated RBC (Bld) [#/Vol] 0 10*3/uL Normal 0-5 [facility] Comment on above: Performed By: #### L 101.9900, L501.6710, L100.0100, L500.2500 ####[facility] [address] [place], [address] Platelet mean volume (Bld) [Entitic vol] 9.2 fL Normal 6.2-12.0 [facility] Comment on above: Performed By: #### L 101.9900, L501.6710, L100.0100, L500.2500 ####[facility] [address] [place], [address] Platelets (Bld) [#/Vol] 617 10*3/uL High 150-450 [facility] Comment on above: Performed By: #### L 101.9900, L501.6710, L100.0100, L500.2500 ####[facility] [address] [place], [address] RBC (Bld) [#/Vol] 2.70 10*6/uL Low 4.2-5.4 [facility] Comment on above: Performed By: #### L 101.9900, L501.6710, L100.0100, L500.2500 ####[facility] [address] [place], [address] RDW SD 55.7 fl High 35.1-43.9 [facility] Comment on above: Performed By: #### L 101.9900, L501.6710, L100.0100, L500.2500 ####[facility] [address] [place], [address] WBC (Bld) [#/Vol] 11.9 10*3/uL High 4.4-11.0 [facility] Comment on above: Performed By: #### L 101.9900, L501.6710, L100.0100, L500.2500 ####[facility] [address] [place], [address] CRPon 04-13-2024 C-REACTIVE PROT 24.90 mg/L High 0.0-3.0 [facility] Comment on above: Result Comment: C-Re active Protein (CRP) provides useful information for thediagnosis, therapy and monitoring of inflammatory processesand associated diseases. For the evaluation of Relative Riskfor Cardiovascular Disease, a High Sensitivity CRP (HSCRP)should be ordered. Performed By: #### L 101.9900, L501.6710, L100.0100, L500.2500 ####[facility] [address] [place], [address] Comprehensive metabolic 2000 panelon 04-13-2024 Albumin [Mass/Vol] 2.7 g/dL Low 3.9-4.9 [facility] Comment on above: Order Comment: Speci men Type: BLOOD SPECIMEN Ordering Facility: [facility] Address: [address] [place] [address] Performed By: #### C RET1 #### [facility] CLIA [id number] [address] ALP [Catalytic activity/Vol] 84 U/L Normal 34-123 [facility] Comment on above: Order Comment: Speci men Type: BLOOD SPECIMEN Ordering Facility: [facility] Address: [address] [place] [address] Performed By: #### C RET1 #### [facility] CLIA [id number] [address] OF [facility] ALT With P-5'-P [Catalytic activity/Vol] 9 U/L Normal 7-38 [facility] Comment on above: Order Comment: Speci men Type: BLOOD SPECIMEN Ordering Facility: [facility] Address: [address] [place] [address] Performed By: #### C RET1 #### [facility] CLIA [id number] [address] Anion gap [Moles/Vol] 8 mmol/L Normal 8-15 [facility] Comment on above: Order Comment: Speci men Type: BLOOD SPECIMEN Ordering Facility: [facility] Address: [facility] [place] [address] Performed By: #### C RET1 #### [facility] CLIA [id number] [address] [place] AST With P-5'-P [Catalytic activity/Vol] 16 U/L Normal 13-35 [facility] Comment on above: Order Comment: Speci men Type: BLOOD SPECIMEN Ordering Facility: [facility] Address: [address] [place] [address] Performed By: #### C RET1 #### [facility] CLIA [id number] [address] [place] Bilirubin [Mass/Vol] 0.2 mg/dL Normal 0.2-1.3 [facility] Comment on above: Order Comment: Speci men Type: BLOOD SPECIMEN Ordering Facility: [facility] Address: [address] [place] [address] Performed By: #### C RET1 #### [facility] CLIA [id number] 1 [place] [address] [place] Calcium [Mass/Vol] 8.2 mg/dL Low 8.5-10.2 [facility] Comment on above: Order Comment: Speci men Type: BLOOD SPECIMEN Ordering Facility: [facility] Address: [address] [place] [address] Performed By: #### C RET1 #### [facility] CLIA [id number] 1 [place] [address] [place] Chloride [Moles/Vol] 95 mmol/L Low 98-107 [facility] Comment on above: Order Comment: Speci men Type: BLOOD SPECIMEN Ordering Facility: [facility] Address: [address] [place] [address] Performed By: #### C RET1 #### [facility] CLIA [id number] 1 [place] [address] [place] CO2 [Moles/Vol] 28 mmol/L Normal 22-30 [facility] Comment on above: Order Comment: Speci men Type: BLOOD SPECIMEN Ordering Facility: [facility] Address: [facility] [place] [address] Performed By: #### C RET1 #### [facility] CLIA [id number] 1 [place] [address] [place] Creatinine [Mass/Vol] 0.36 mg/dL Low 0.58-0.96 [facility] Comment on above: Order Comment: Shayy weiss Type: BLOOD SPECIMEN Ordering Facility: [facility] Address: [address] [place] [address] Performed By: #### C RET1 #### [facility] CLIA [id number] [address] [place] Creatinine and Glomerular filtration rate.predicted panel (S/P/Bld) 108 mL/min/1.73m??? Normal >=60 [facility] Comment on above: Order Comment: Shayy weiss Type: BLOOD SPECIMEN Ordering Facility: [facility] Address: [address] [place] [address] Result Comment: Kristina mated Glomerular Filtration Rate [...] GFR. Performed By: #### C RET1 #### [facility] CLIA [id number] [address] [place] [address] [place] Glucose [Mass/Vol] 86 mg/dL Normal 74-99 [facility] Comment on above: Order Comment: Shayy weiss Type: BLOOD SPECIMEN Ordering Facility: [facility] Address: [address] [place] [address] Result Comment: The [place] [employer] Association (ADA) provides guidance for cutoff [...] Standards of Medical Care in Diabetes 2016, [place] [employer]. Diabetes Care. 2016.39(Suppl 1). Performed By: #### C RET1 #### [facility] CLIA [id number] [address] [place] Potassium [Moles/Vol] 3.7 mmol/L Normal 3.7-5.1 [facility] Comment on above: Order Comment: Speci men Type: BLOOD SPECIMEN Ordering Facility: [facility] Address: [address] [place] [address] Performed By: #### C RET1 #### [facility] CLIA [id number] [address] [place] Protein [Mass/Vol] 6.5 g/dL Normal 6.3-8.0 [facility] Comment on above: Order Comment: Speci men Type: BLOOD SPECIMEN Ordering Facility: [facility] Address: [address] [place] [address] Performed By: #### C RET1 #### [facility] CLIA [id number] [address] OF [facility] Sodium [Moles/Vol] 131 mmol/L Low 136-144 [facility] Comment on above: Order Comment: Speci men Type: BLOOD SPECIMEN Ordering Facility: [facility] Address: [address] [place] [address] Performed By: #### C RET1 #### [facility] CLIA [id number] [address] OF [facility] Urea nitrogen [Mass/Vol] 6 mg/dL Low 7-21 [facility] Comment on above: Order Comment: Speci men Type: BLOOD SPECIMEN Ordering Facility: [facility] Address: [address] [place] [address] Performed By: #### C RET1 #### [facility] CLIA [id number] [address] [place] [address] OF [facility] ED NOTEon 04-13-2024 ED NOTE HNO ID: [id number] Author: CASSANDRA LAMB, EFE Service: Nursing Author Type: Registered Nurse Type: ED Notes Filed: 04/13/2024 22:06 Note Text: Pt is asking about her trazadone and clonidine for this evening. Normal [facility] ED NOTE HNO ID: [id number] Author: CASSANDRA LAMB, RN Service: Nursing Author Type: Registered Nurse Type: ED Notes Filed: 04/13/2024 22:04 Note Text: Pt placed on monitor and storage bin tender, bp cuff and pulse ox attached. Pt is aANDox3. 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 Pt is aANDox3. Pt is paralyzed from the waste down d/t transverse myelitis Normal [facility] ED NOTE HNO ID: [id number] Author: CLAUDIO MCCLOUD RN Service: ? Author Type: Registered Nurse Type: ED Notes Filed: 04/13/2024 21:57 Note Text: Bed: 45-ED Expected date: Expected time: Means of arrival: Comments: Que transfer Normal [facility] Emergency Department Summary on 04-13-2024 Emergency Department Summary Normal [facility] Erythrocyte Sed Rateon 04-13 SED RATE 40 mm/hr High 0-30 [facility] Comment on above: Performed By: #### L 101.9900, L501.6710, L100.0100, L500.2500 ####[facility] [address] [place], [address] GRAM POSITIVE ORGANISM ID BY MICROARRAY (AnsiraIGENE)on 04-13-2024 GRAM POSITIVE ORGANISM ID BY MICROARRAY (AnsiraIGENE) BCID INTERPRETATION: Coagulase negative staphylococci (CoNS, not S. lugdunensis) detected by microarray. Single positive cultures of CoNS usually represent contamination. Call lab within 72 hours if further work up is required. Negative for Streptococcus spp. and Enterococcus spp. by microarray. Abnormal [facility] Comment on above: Performed By: #### I DBCGP, 600-7 #### [facility] CLIA [id number] [address] [place] Lactic Acidon 04-13-2024 Lactate [Moles/Vol] 0.7 mmol/L Normal 0.4-1.9 [facility] Comment on above: Order Comment: Y Performed By: #### L 503.6005 ####[facility] [address] [place], [address] Pelvis WITH IV Contraston Pelvis WITH IV Contrast Normal [facility] SEPSIS LACTATE W/ REFLEX (IN ITIAL)on 04-13-2024 Lactate [Moles/Vol] 0.6 mmol/L Normal 0.0-2.0 [facility] Comment on above: Order Comment: Speci men Type: BLOOD SPECIMEN Ordering Facility: [facility] Address: [address] [place] [address] Performed By: #### 5 8410-2 #### [facility] CLIA [id number] [address] [place], [place] [address] [place] [address] [place] Basic Metabolic Profile (BMP )on 04-07-2024 BUN Normal 7-18 [facility] Comment on above: Result Comment: Canc elled via OM: Order cancelled - Patient discharged Performed By: #### L 100.0100, L500.2500 ####[facility] [address] [place], [address] BUN/CRE Normal 10-20 [facility] Comment on above: Result Comment: Canc elled via OM: Order cancelled - Patient discharged Performed By: #### L 100.0100, L500.2500 ####[facility] [address] [place], [address] CA,Total Normal 8.5-10.1 [facility] Comment on above: Result Comment: Canc elled via OM: Order cancelled - Patient discharged Performed By: #### L 100.0100, L500.2500 ####[facility] [address] [place], [address] CL Normal 98-107 [facility] Comment on above: Result Comment: Canc elled via OM: Order cancelled - Patient discharged Performed By: #### L 100.0100, L500.2500 ####[facility] [address] [place], [address] CO2 Normal 21.0-32.0 [facility] Comment on above: Result Comment: Canc elled via OM: Order cancelled - Patient discharged Performed By: #### L 100.0100, L500.2500 ####[facility] [address] [place], [address] CREAT,SERUM Normal 0.55-1.02 [facility] Comment on above: Result Comment: Canc elled via OM: Order cancelled - Patient discharged Performed By: #### L 100.0100, L500.2500 ####[facility] [address] [facility] [address] EST GFR Normal >60 [facility] Comment on above: Result Comment: Canc elled via OM: Order cancelled - Patient discharged Performed By: #### L 100.0100, L500.2500 ####[facility] [address] [place], [address] EST GFR - AA Normal >60 [facility] Comment on above: Result Comment: Canc elled via OM: Order cancelled - Patient discharged Performed By: #### L 100.0100, L500.2500 ####[facility] [address] [place], [address] GAP Normal 5-15 [facility] Comment on above: Result Comment: Canc elled via OM: Order cancelled - Patient discharged Performed By: #### L 100.0100, L500.2500 ####[facility] [address] [place], [address] GLU Normal 74-106 [facility] Comment on above: Result Comment: Canc elled via OM: Order cancelled - Patient discharged Performed By: #### L 100.0100, L500.2500 ####[facility] [address] [place], [address] Potassium Normal 3.5-5.1 [facility] Comment on above: Result Comment: Canc elled via OM: Order cancelled - Patient discharged Performed By: #### L 100.0100, L500.2500 ####[facility] [address] [place], [address] Basic Metabolic Profile (BMP) Normal 136-145 [facility] Comment on above: Result Comment: Canc elled via OM: Order cancelled - Patient discharged Performed By: #### L 100.0100, L500.2500 ####[facility] [address] [place], [address] CBC W/Diff, Automatedon 12-0 -2023 Absolute Neut Normal 2.0-7.7 [facility] Comment on above: Result Comment: Canc elled via OM: Order cancelled - Patient discharged Performed By: #### L 100.0100, L500.2500 ####[facility] [address] [place], [address] HCT Normal 37-47 [facility] Comment on above: Result Comment: Canc elled via OM: Order cancelled - Patient discharged Performed By: #### L 100.0100, L500.2500 ####[facility] [address] [place], [address] HGB Normal 12.0-15.0 [facility] Comment on above: Result Comment: Canc elled via OM: Order cancelled - Patient discharged Performed By: #### L 100.0100, L500.2500 ####[facility] [address] [place], [address] MCH Normal 27.0-32.0 [facility] Comment on above: Result Comment: Canc elled via OM: Order cancelled - Patient discharged Performed By: #### L 100.0100, L500.2500 ####[facility] [address] [place], [address] MCHC Normal 32-36 [facility] Comment on above: Result Comment: Canc elled via OM: Order cancelled - Patient discharged Performed By: #### L 100.0100, L500.2500 ####[facility] [address] [place], [address] MCV Normal 81-99 [facility] Comment on above: Result Comment: Canc elled via OM: Order cancelled - Patient discharged Performed By: #### L 100.0100, L500.2500 ####[facility] [address] [place], [address] NEUT% Normal 47-70 [facility] Comment on above: Result Comment: Canc elled via OM: Order cancelled - Patient discharged Performed By: #### L 100.0100, L500.2500 ####[facility] [address] [place], [address] PLT Normal 150-450 [facility] Comment on above: Result Comment: Canc elled via OM: Order cancelled - Patient discharged Performed By: #### L 100.0100, L500.2500 ####[facility] [address] [place], [address] RBC Normal 4.2-5.4 [facility] Comment on above: Result Comment: Canc elled via OM: Order cancelled - Patient discharged Performed By: #### L 100.0100, L500.2500 ####[facility] [address] [place], [address] RDW CV Normal 11.6-14.6 [facility] Comment on above: Result Comment: Canc elled via OM: Order cancelled - Patient discharged Performed By: #### L 100.0100, L500.2500 ####[facility] [address] [place], [address] RDW SD Normal 35.1-43.9 [facility] Comment on above: Result Comment: Canc elled via OM: Order cancelled - Patient discharged Performed By: #### L 100.0100, L500.2500 ####[facility] [address] [place], [address] WBC Normal 4.4-11.0 [facility] Comment on above: Result Comment: Canc elled via OM: Order cancelled - Patient discharged Performed By: #### L 100.0100, L500.2500 ####[facility] [address] [place], [address] Basic Metabolic Profile (BMP )on 04-06-2024 BUN Normal 7-18 [facility] Comment on above: Result Comment: Canc elled via OM: Order cancelled - Patient discharged Performed By: #### L 100.0100, L500.2500 ####[facility] [address] [place], [address] BUN/CRE Normal 10-20 [facility] Comment on above: Result Comment: Canc elled via OM: Order cancelled - Patient discharged Performed By: #### L 100.0100, L500.2500 ####[facility] [address] [place], [address] CA,Total Normal 8.5-10.1 [facility] Comment on above: Result Comment: Canc elled via OM: Order cancelled - Patient discharged Performed By: #### L 100.0100, L500.2500 ####[facility] [address] [place], [address] CL Normal 98-107 [facility] Comment on above: Result Comment: Canc elled via OM: Order cancelled - Patient discharged Performed By: #### L 100.0100, L500.2500 ####[facility] [address] [place], [address] CO2 Normal 21.0-32.0 [facility] Comment on above: Result Comment: Canc elled via OM: Order cancelled - Patient discharged Performed By: #### L 100.0100, L500.2500 ####[facility] [address] [place], [address] CREAT,SERUM Normal 0.55-1.02 [facility] Comment on above: Result Comment: Canc elled via OM: Order cancelled - Patient discharged Performed By: #### L 100.0100, L500.2500 ####[facility] [address] [place], [address] EST GFR Normal >60 [facility] Comment on above: Result Comment: Canc elled via OM: Order cancelled - Patient discharged Performed By: #### L 100.0100, L500.2500 ####[facility] [address] [place], [address] EST GFR - AA Normal >60 [facility] Comment on above: Result Comment: Canc elled via OM: Order cancelled - Patient discharged Performed By: #### L 100.0100, L500.2500 ####[facility] [address] [place], [address] GAP Normal 5-15 [facility] Comment on above: Result Comment: Canc elled via OM: Order cancelled - Patient discharged Performed By: #### L 100.0100, L500.2500 ####[facility] [address] [place], [address] GLU Normal 74-106 [facility] Comment on above: Result Comment: Canc elled via OM: Order cancelled - Patient discharged Performed By: #### L 100.0100, L500.2500 ####[facility] [address] [place], [address] Potassium Normal 3.5-5.1 [facility] Comment on above: Result Comment: Canc elled via OM: Order cancelled - Patient discharged Performed By: #### L 100.0100, L500.2500 ####[facility] [address] [place], [address] Basic Metabolic Profile (BMP) Normal 136-145 [facility] Comment on above: Result Comment: Canc elled via OM: Order cancelled - Patient discharged Performed By: #### L 100.0100, L500.2500 ####[facility] [address] [place], [address] CBC W/Diff, Automatedon 12-0 -2023 Absolute Neut Normal 2.0-7.7 [facility] Comment on above: Result Comment: Canc elled via OM: Order cancelled - Patient discharged Performed By: #### L 100.0100, L500.2500 ####[facility] [address] [place], [address] HCT Normal 37-47 [facility] Comment on above: Result Comment: Canc elled via OM: Order cancelled - Patient discharged Performed By: #### L 100.0100, L500.2500 ####[facility] [address] [place], [address] HGB Normal 12.0-15.0 [facility] Comment on above: Result Comment: Canc elled via OM: Order cancelled - Patient discharged Performed By: #### L 100.0100, L500.2500 ####[facility] [address] [place], [address] MCH Normal 27.0-32.0 [facility] Comment on above: Result Comment: Canc elled via OM: Order cancelled - Patient discharged Performed By: #### L 100.0100, L500.2500 ####[facility] [address] [place], [address] MCHC Normal 32-36 [facility] Comment on above: Result Comment: Canc elled via OM: Order cancelled - Patient discharged Performed By: #### L 100.0100, L500.2500 ####[facility] [address] [place], [address] MCV Normal 81-99 [facility] Comment on above: Result Comment: Canc elled via OM: Order cancelled - Patient discharged Performed By: #### L 100.0100, L500.2500 ####[facility] [address] [place], [address] NEUT% Normal 47-70 [facility] Comment on above: Result Comment: Canc elled via OM: Order cancelled - Patient discharged Performed By: #### L 100.0100, L500.2500 ####[facility] [address] [place], [address] PLT Normal 150-450 [facility] Comment on above: Result Comment: Canc elled via OM: Order cancelled - Patient discharged Performed By: #### L 100.0100, L500.2500 ####[facility] [address] [place], [address] RBC Normal 4.2-5.4 [facility] Comment on above: Result Comment: Canc elled via OM: Order cancelled - Patient discharged Performed By: #### L 100.0100, L500.2500 ####[facility] [address] [place], [address] RDW CV Normal 11.6-14.6 [facility] Comment on above: Result Comment: Canc elled via OM: Order cancelled - Patient discharged Performed By: #### L 100.0100, L500.2500 ####[facility] [address] [place], [address] RDW SD Normal 35.1-43.9 [facility] Comment on above: Result Comment: Canc elled via OM: Order cancelled - Patient discharged Performed By: #### L 100.0100, L500.2500 ####[facility] [address] [place], [address] WBC Normal 4.4-11.0 [facility] Comment on above: Result Comment: Canc elled via OM: Order cancelled - Patient discharged Performed By: #### L 100.0100, L500.2500 ####[facility] [address] [place], [address] Ammoniaon 04-05-2024 Ammonia (P) [Moles/Vol] 13.0 umol/L Normal 11-32 [facility] Comment on above: Performed By: #### L 503.5510 ####[facility] [address] [place], [address] Basic Metabolic Profile (BMP )on 04-05-2024 BUN/CRE 74.1 RATIO High 10-20 [facility] Comment on above: Performed By: #### L 501.5200, L100.0100, L501.2300, L500.2500 ####[facility] [address] [place], [address] CA,Total 8.5 mg/dL Normal 8.5-10.1 [facility] Comment on above: Performed By: #### L 501.5200, L100.0100, L501.2300, L500.2500 ####[facility] [address] [place], [address] Chloride [Moles/Vol] 105 mmol/L Normal 98-107 [facility] Comment on above: Performed By: #### L 501.5200, L100.0100, L501.2300, L500.2500 ####[facility] [address] [place], [address] CO2 [Moles/Vol] 30.0 mmol/L Normal 21.0-32.0 [facility] Comment on above: Performed By: #### L 501.5200, L100.0100, L501.2300, L500.2500 ####[facility] [address] [place], [address] Creatinine [Mass/Vol] 0.30 mg/dL Low 0.55-1.02 [facility] Comment on above: Result Comment: The validity of the calculated GFR GFRAA in patients over70 years has not been determined. Clinical correlation isessential. Performed By: #### L 501.5200, L100.0100, L501.2300, L500.2500 ####[facility] [address] [place], [address] ECRCL 47.36 ml/min Normal [facility] Comment on above: Performed By: #### L 501.5200, L100.0100, L501.2300, L500.2500 ####[facility] [address] [place], [address] EST GFR - AA 284 mL/min Normal >60 [facility] Comment on above: Result Comment: Afri can Angolan GFR Calc Performed By: #### L 501.5200, L100.0100, L501.2300, L500.2500 ####[facility] [address] [place], [address] GAP 3 Low 5-15 [facility] Comment on above: Performed By: #### L 501.5200, L100.0100, L501.2300, L500.2500 ####[facility] [address] [place], [address] GFR/1.73 sq M.predicted among non-blacks MDRD (S/P/Bld) [Vol rate/Area] 235 mL/min/{1.73_m2} Normal >60 [facility] Comment on above: Result Comment: Non- GFR Calc Performed By: #### L 501.5200, L100.0100, L501.2300, L500.2500 ####[facility] [address] [place], [address] Glucose [Mass/Vol] 114 mg/dL High 74-106 [facility] Comment on above: Result Comment: Fast ing Glucose result from 100 to 125 mg/dLsuggests IMPAIRED HOMEOSTASIS per A.D.A. criteria. Performed By: #### L 501.5200, L100.0100, L501.2300, L500.2500 ####[facility] [address] [place], [address] Potassium [Moles/Vol] 4.8 mmol/L Normal 3.5-5.1 [facility] Comment on above: Performed By: #### L 501.5200, L100.0100, L501.2300, L500.2500 ####[facility] [address] [place], [address] Sodium [Moles/Vol] 137 mmol/L Normal 136-145 [facility] Comment on above: Performed By: #### L 501.5200, L100.0100, L501.2300, L500.2500 ####[facility] [address] [place], [address] Urea nitrogen [Mass/Vol] 22 mg/dL High 7-18 [facility] Comment on above: Performed By: #### L 501.5200, L100.0100, L501.2300, L500.2500 ####[facility] [address] [place], [address] CBC W/Diff, Automatedon 12-0 Anisocytosis Ql (Bld) 1+ Normal [facility] Comment on above: Performed By: #### L 501.5200, L100.0100, L501.2300, L500.2500 ####[facility] [address] [place], [address] Culture, Blood (WB)on 2023 CUB Blood cultures x2, from two different sites No growth in 5 days. Normal [facility] Comment on above: Performed By: #### L 500.4050, M200.1000, L300.4310, L501.4020, L503.6005, L100.0100, L300.3900 ####[facility] [address] [place], [address] Liver Profileon 04-05-2024 Albumin [Mass/Vol] 1.5 g/dL Low 3.2-5.0 [facility] Comment on above: Performed By: #### L 500.3400 ####[facility] [address] [place], [address] ALK P 145 U/L High 45-117 [facility] Comment on above: Performed By: #### L 500.3400 ####[facility] [address] [place], [address] ALT [Catalytic activity/Vol] 25 U/L Normal 13-56 [facility] Comment on above: Performed By: #### L 500.3400 ####[facility] [address] [place], [address] AST [Catalytic activity/Vol] 27 U/L Normal 15-37 [facility] Comment on above: Performed By: #### L 500.3400 ####[facility] [address] [place], [address] Bilirubin [Mass/Vol] 0.30 mg/dL Normal 0.20-1.00 [facility] Comment on above: Result Comment: For patients on eltrombopag therapy, use of Dimension [place] TBIL is not recommended. Performed By: #### L 500.3400 ####[facility] [address] [place], [address] Bilirubin.direct [Mass/Vol] 0.18 mg/dL Normal 0.00-0.30 [facility] Comment on above: Performed By: #### L 500.3400 ####[facility] [address] [place], [address] Globulin (S) [Mass/Vol] 2.9 g/dL Normal 2.2-4.2 [facility] Comment on above: Performed By: #### L 500.3400 ####[facility] [address] [place], [address] T PROT 4.4 g/dL Low 6.4-8.2 [facility] Comment on above: Performed By: #### L 500.3400 ####[facility] [address] [place], [address] Magnesiumon 04-05-2024 Magnesium [Mass/Vol] 2.0 mg/dL Normal 1.6-2.6 [facility] Comment on above: Performed By: #### L 501.5200, L100.0100, L501.2300, L500.2500 ####[facility] [address] [place], [address] Phosphoruson 04-05-2024 Phosphate [Mass/Vol] 4.2 mg/dL Normal 2.5-4.9 [facility] Comment on above: Performed By: #### L 501.5200, L100.0100, L501.2300, L500.2500 ####[facility] [address] [place], [address] Stool Occult Blood iFOBon STOB Normal [facility] Comment on above: Performed By: #### M 100.7900 ####[facility] [address] [place], [address] BRCon 04-04-2024 RC Normal [facility] Comment on above: Result Comment: [id number] AN RC READY Performed By: #### B RC ####[facility] [address] [place], [address] Basic Metabolic Profile (BMP )on 04-04-2024 BUN/CRE 68.2 RATIO High 10-20 [facility] Comment on above: Performed By: #### L 100.0100, L500.2500 ####[facility] [address] [place], [address] CA,Total 9.0 mg/dL Normal 8.5-10.1 [facility] Comment on above: Performed By: #### L 100.0100, L500.2500 ####[facility] [address] [place], [address] Chloride [Moles/Vol] 106 mmol/L Normal 98-107 [facility] Comment on above: Performed By: #### L 100.0100, L500.2500 ####[facility] [address] [place], [address] CO2 [Moles/Vol] 28.0 mmol/L Normal 21.0-32.0 [facility] Comment on above: Performed By: #### L 100.0100, L500.2500 ####[facility] [address] [place], [address] Creatinine [Mass/Vol] 0.31 mg/dL Low 0.55-1.02 [facility] Comment on above: Result Comment: The validity of the calculated GFR GFRAA in patients over70 years has not been determined. Clinical correlation isessential. Performed By: #### L 100.0100, L500.2500 ####[facility] [address] [place], [address] ECRCL 47.36 ml/min Normal [facility] Comment on above: Performed By: #### L 100.0100, L500.2500 ####[facility] [address] [place], [address] EST GFR - AA 272 mL/min Normal >60 [facility] Comment on above: Result Comment: Afri can Angolan GFR Calc Performed By: #### L 100.0100, L500.2500 ####[facility] [address] [place], [address] GAP 3 Low 5-15 [facility] Comment on above: Performed By: #### L 100.0100, L500.2500 ####[facility] [address] [place], [address] GFR/1.73 sq M.predicted among non-blacks MDRD (S/P/Bld) [Vol rate/Area] 225 mL/min/{1.73_m2} Normal >60 [facility] Comment on above: Result Comment: Non- GFR Calc Performed By: #### L 100.0100, L500.2500 ####[facility] [address] [place], [address] Glucose [Mass/Vol] 111 mg/dL High 74-106 [facility] Comment on above: Result Comment: Fast ing Glucose result from 100 to 125 mg/dLsuggests IMPAIRED HOMEOSTASIS per A.D.A. criteria. Performed By: #### L 100.0100, L500.2500 ####[facility] [address] [place], [address] Potassium [Moles/Vol] 4.9 mmol/L Normal 3.5-5.1 [facility] Comment on above: Performed By: #### L 100.0100, L500.2500 ####[facility] [address] [place], [address] Sodium [Moles/Vol] 137 mmol/L Normal 136-145 [facility] Comment on above: Performed By: #### L 100.0100, L500.2500 ####[facility] [address] [place], [address] Urea nitrogen [Mass/Vol] 21 mg/dL High 7-18 [facility] Comment on above: Performed By: #### L 100.0100, L500.2500 ####[facility] [address] [place], [address] CBC W/Diff, Automatedon 12-0 2-2024 Absolute Lymph 0.68 X10 3/uL Low 0.83-4.51 [facility] Comment on above: Performed By: #### L 100.0100, L500.2500 ####[facility] [address] [place], [address] Absolute Neut 10.1 X10 3/uL High 2.0-7.7 [facility] Comment on above: Performed By: #### L 100.0100, L500.2500 ####[facility] [address] [place], [address] Basophils/100 WBC (Bld) 0.4 % Normal 0-1 [facility] Comment on above: Performed By: #### L 100.0100, L500.2500 ####[facility] [address] [place], [address] Eosinophils/100 WBC (Bld) 1.3 % Normal 0-5 [facility] Comment on above: Performed By: #### L 100.0100, L500.2500 ####[facility] [address] [place], [address] Erythrocyte distribution width (RBC) [Ratio] 13.8 % Normal 11.6-14.6 [facility] Comment on above: Performed By: #### L 100.0100, L500.2500 ####[facility] [address] [place], [address] Hematocrit (Bld) [Volume fraction] 24.0 % Low 37-47 [facility] Comment on above: Performed By: #### L 100.0100, L500.2500 ####[facility] [address] [place], [address] Hemoglobin (Bld) [Mass/Vol] 8.1 g/dL Low 12.0-15.0 [facility] Comment on above: Performed By: #### L 100.0100, L500.2500 ####[facility] [address] [place], [address] IG% 1.500 High 0.0-0.9 [facility] Comment on above: Result Comment: IG% - Immature Granulocytes (promyelocytes, myelocytes andmetamyelocytes) > 1% indicates that a LEFT SHIFT is Present. Performed By: #### L 100.0100, L500.2500 ####[facility] [address] [place], [address] Lymphocytes/100 WBC (Bld) 5.8 % Low 19-41 [facility] Comment on above: Performed By: #### L 100.0100, L500.2500 ####[facility] [address] [place], [address] MCH (RBC) [Entitic mass] 31.2 pg Normal 27.0-32.0 [facility] Comment on above: Performed By: #### L 100.0100, L500.2500 ####[facility] [address] [place], [address] MCHC (RBC) [Mass/Vol] 33.8 g/dL Normal 32-36 [facility] Comment on above: Performed By: #### L 100.0100, L500.2500 ####[facility] [address] [place], [address] MCV (RBC) [Entitic vol] 92.3 fL Normal 81-99 [facility] Comment on above: Performed By: #### L 100.0100, L500.2500 ####[facility] [address] [place], [address] Monocytes/100 WBC (Bld) 4.6 % Normal 0-10 [facility] Comment on above: Performed By: #### L 100.0100, L500.2500 ####[facility] [address] [place], [address] Neutrophils/100 WBC (Bld) 86.4 % High 47-70 [facility] Comment on above: Performed By: #### L 100.0100, L500.2500 ####[facility] [address] [place], [address] Nucleated RBC (Bld) [#/Vol] 0 10*3/uL Normal 0-5 [facility] Comment on above: Performed By: #### L 100.0100, L500.2500 ####[facility] [address] [place], [address] Platelet mean volume (Bld) [Entitic vol] 10.9 fL Normal 6.2-12.0 [facility] Comment on above: Performed By: #### L 100.0100, L500.2500 ####[facility] [address] [place], [address] Platelets (Bld) [#/Vol] 126 10*3/uL Low 150-450 [facility] Comment on above: Performed By: #### L 100.0100, L500.2500 ####[facility] [address] [place], [address] RBC (Bld) [#/Vol] 2.60 10*6/uL Low 4.2-5.4 [facility] Comment on above: Performed By: #### L 100.0100, L500.2500 ####[facility] [address] [place], [address] RDW SD 46.4 fl High 35.1-43.9 [facility] Comment on above: Performed By: #### L 100.0100, L500.2500 ####[facility] [address] [place], [address] WBC (Bld) [#/Vol] 11.6 10*3/uL High 4.4-11.0 [facility] Comment on above: Performed By: #### L 100.0100, L500.2500 ####[facility] [address] [place], [address] Iron+Iron Binding Capacityon 04-04-2024 Iron [Mass/Vol] 18 ug/dL Low 50-170 [facility] Comment on above: Performed By: #### L 503.0105, L503.6030 ####[facility] [address] [place], [address] IRON SATURATION 14.4 Low 15.0-55.0 [facility] Comment on above: Performed By: #### L 503.0105, L503.6030 ####[facility] [address] [place], [address] TIBC 125 ug/dL Low 250-450 [facility] Comment on above: Performed By: #### L 503.0105, L503.6030 ####[facility] [address] [place], [address] Type AND Screenon 04-04-2024 ABO and Rh group Nom (Bld) Blood group A Rh(D) negative Normal [facility] Comment on above: Order Comment: A Performed By: #### B TS ####[facility] [address] [place], [address] Ab SCREEN GEL Negative Normal [facility] Comment on above: Order Comment: A Performed By: #### B TS ####[facility] [address] [place], [address] Vitamin B12on 04-04-2024 Cobalamin (Vitamin B12) [Mass/Vol] 853 pg/mL Normal 211-911 [facility] Comment on above: Performed By: #### L 503.0105, L503.6030 ####[facility] [address] [place], [address] 12 Lead EKGon 04-03-2024 12 Lead EKG Normal [facility] Basic Metabolic Profile (BMP )on 04-03-2024 BUN/CRE 61.7 RATIO High 10-20 [facility] Comment on above: Performed By: #### L 100.0100, L500.2500 ####[facility] [address] [place], [address] CA,Total 8.1 mg/dL Low 8.5-10.1 [facility] Comment on above: Performed By: #### L 100.0100, L500.2500 ####[facility] [address] [place], [address] Chloride [Moles/Vol] 106 mmol/L Normal 98-107 [facility] Comment on above: Performed By: #### L 100.0100, L500.2500 ####[facility] [address] [place], [address] CO2 [Moles/Vol] 27.0 mmol/L Normal 21.0-32.0 [facility] Comment on above: Performed By: #### L 100.0100, L500.2500 ####[facility] [address] [place], [address] Creatinine [Mass/Vol] 0.31 mg/dL Low 0.55-1.02 [facility] Comment on above: Result Comment: The validity of the calculated GFR GFRAA in patients over70 years has not been determined. Clinical correlation isessential. Performed By: #### L 100.0100, L500.2500 ####[facility] [address] [place], [address] ECRCL 47.36 ml/min Normal [facility] Comment on above: Performed By: #### L 100.0100, L500.2500 ####[facility] [address] [place], [address] EST GFR - AA 272 mL/min Normal >60 [facility] Comment on above: Result Comment: Afri can Angolan GFR Calc Performed By: #### L 100.0100, L500.2500 ####[facility] [address] [place], [address] GAP 4 Low 5-15 [facility] Comment on above: Performed By: #### L 100.0100, L500.2500 ####[facility] [address] [place], [address] GFR/1.73 sq M.predicted among non-blacks MDRD (S/P/Bld) [Vol rate/Area] 225 mL/min/{1.73_m2} Normal >60 [facility] Comment on above: Result Comment: Non- GFR Calc Performed By: #### L 100.0100, L500.2500 ####[facility] [address] [place], [address] Glucose [Mass/Vol] 82 mg/dL Normal 74-106 [facility] Comment on above: Performed By: #### L 100.0100, L500.2500 ####[facility] [address] [place], [address] Potassium [Moles/Vol] 5.3 mmol/L High 3.5-5.1 [facility] Comment on above: Performed By: #### L 100.0100, L500.2500 ####[facility] [address] [place], [address] Sodium [Moles/Vol] 138 mmol/L Normal 136-145 [facility] Comment on above: Performed By: #### L 100.0100, L500.2500 ####[facility] [address] [place], [address] Urea nitrogen [Mass/Vol] 19 mg/dL High 7-18 [facility] Comment on above: Performed By: #### L 100.0100, L500.2500 ####[facility] [address] [place], [address] CBC W/Diff, Automatedon 12-0 SMEAR COMMENT SCANNED Normal [facility] Comment on above: Performed By: #### L 100.0100, L500.2500 ####[facility] [address] [place], [address] Abdomen Single View (Portabl e)on 04-02-2024 Abdomen Single View (Portable) Normal [facility] Basic Metabolic Profile (BMP )on 04-02-2024 BUN/CRE 50.4 RATIO High 10-20 [facility] Comment on above: Performed By: #### L 100.0100, L500.2500 ####[facility] [address] [place], [address] CA,Total 7.9 mg/dL Low 8.5-10.1 [facility] Comment on above: Performed By: #### L 100.0100, L500.2500 ####[facility] [address] [place], [address] Chloride [Moles/Vol] 106 mmol/L Normal 98-107 [facility] Comment on above: Performed By: #### L 100.0100, L500.2500 ####[facility] [address] [place], [address] CO2 [Moles/Vol] 25.0 mmol/L Normal 21.0-32.0 [facility] Comment on above: Performed By: #### L 100.0100, L500.2500 ####[facility] [address] [place], [address] Creatinine [Mass/Vol] 0.42 mg/dL Low 0.55-1.02 [facility] Comment on above: Result Comment: The validity of the calculated GFR GFRAA in patients over70 years has not been determined. Clinical correlation isessential. Performed By: #### L 100.0100, L500.2500 ####[facility] [address] [place], [address] ECRCL 47.36 ml/min Normal [facility] Comment on above: Performed By: #### L 100.0100, L500.2500 ####[facility] [address] [place], [address] EST GFR - AA 192 mL/min Normal >60 [facility] Comment on above: Result Comment: Afri can Angolan GFR Calc Performed By: #### L 100.0100, L500.2500 ####[facility] [address] [place], [address] GAP 5 Normal 5-15 [facility] Comment on above: Performed By: #### L 100.0100, L500.2500 ####[facility] [address] [place], [address] GFR/1.73 sq M.predicted among non-blacks MDRD (S/P/Bld) [Vol rate/Area] 159 mL/min/{1.73_m2} Normal >60 [facility] Comment on above: Result Comment: Non- GFR Calc Performed By: #### L 100.0100, L500.2500 ####[facility] [address] [place], [address] Glucose [Mass/Vol] 97 mg/dL Normal 74-106 [facility] Comment on above: Performed By: #### L 100.0100, L500.2500 ####[facility] [address] [place], [address] Potassium [Moles/Vol] 2.7 mmol/L Invalid Interpretation Code 3.5-5.1 [facility] Comment on above: Result Comment: Crit ical Result(s) Called at: 07:29:48 04/02/2024 by:Denisse Morrison. Results read back by same. Performed By: #### L 100.0100, L500.2500 ####[facility] [address] [place], [address] Sodium [Moles/Vol] 136 mmol/L Normal 136-145 [facility] Comment on above: Performed By: #### L 100.0100, L500.2500 ####[facility] [address] [place], [address] Urea nitrogen [Mass/Vol] 21 mg/dL High 7-18 [facility] Comment on above: Performed By: #### L 100.0100, L500.2500 ####[facility] [address] [place], [address] Bedside Glucoseon 04-02-2024 FINGERSTICK GLU 101 mg/dL Normal 74-106 [facility] Comment on above: Result Comment: LIAM HERNANDEZ OF PATIENT CARE PER NURSING PROTOCOL Performed By: #### L 501.080 ####[facility] [address] [place], [address] CBC W/Diff, Automatedon 11-3 SMEAR COMMENT SCANNED Normal [facility] Comment on above: Performed By: #### L 100.0100, L500.2500 ####[facility] [address] [place], [address] Urine Cultureon 04-02-2024 URC Normal [facility] Comment on above: Performed By: #### L 400.0001, M100.678, M100.2200 ####[facility] [address] [place], [address] Basic Metabolic Profile (BMP )on 04-01-2024 BUN/CRE 47.4 RATIO High 10-20 [facility] Comment on above: Performed By: #### L 100.0100, L501.5200, L501.2300, L501.9520, L300.3900, L500.3400, L500.4050, L500.2500 ####[facility] [address] [place], [address] CA,Total 7.6 mg/dL Low 8.5-10.1 [facility] Comment on above: Performed By: #### L 100.0100, L501.5200, L501.2300, L501.9520, L300.3900, L500.3400, L500.4050, L500.2500 ####[facility] [address] [place], [address] Chloride [Moles/Vol] 107 mmol/L Normal 98-107 [facility] Comment on above: Performed By: #### L 100.0100, L501.5200, L501.2300, L501.9520, L300.3900, L500.3400, L500.4050, L500.2500 ####[facility] [address] [place], [address] CO2 [Moles/Vol] 21.0 mmol/L Normal 21.0-32.0 [facility] Comment on above: Performed By: #### L 100.0100, L501.5200, L501.2300, L501.9520, L300.3900, L500.3400, L500.4050, L500.2500 ####[facility] [address] [place], [address] Creatinine [Mass/Vol] 0.68 mg/dL Normal 0.55-1.02 [facility] Comment on above: Result Comment: The validity of the calculated GFR GFRAA in patients over70 years has not been determined. Clinical correlation isessential. Performed By: #### L 100.0100, L501.5200, L501.2300, L501.9520, L300.3900, L500.3400, L500.4050, L500.2500 ####[facility] [address] [place], [address] ECRCL 47.36 ml/min Normal [facility] Comment on above: Performed By: #### L 100.0100, L501.5200, L501.2300, L501.9520, L300.3900, L500.3400, L500.4050, L500.2500 ####[facility] [address] [place], [address] EST GFR - AA 110 mL/min Normal >60 [facility] Comment on above: Result Comment: Afri can Angolan GFR Calc Performed By: #### L 100.0100, L501.5200, L501.2300, L501.9520, L300.3900, L500.3400, L500.4050, L500.2500 ####[facility] [address] [place], [address] GAP 9 Normal 5-15 [facility] Comment on above: Performed By: #### L 100.0100, L501.5200, L501.2300, L501.9520, L300.3900, L500.3400, L500.4050, L500.2500 ####[facility] [address] [place], [place], [address] GFR/1.73 sq M.predicted among non-blacks MDRD (S/P/Bld) [Vol rate/Area] 91 mL/min/{1.73_m2} Normal >60 [facility] Comment on above: Result Comment: Non- GFR Calc Performed By: #### L 100.0100, L501.5200, L501.2300, L501.9520, L300.3900, L500.3400, L500.4050, L500.2500 ####[facility] [address] [place], [address] Glucose [Mass/Vol] 135 mg/dL High 74-106 [facility] Comment on above: Result Comment: Fast ing Glucose result greater than or equal to 126 mg/dLsuggests DIABETES MELLITUS per A.D.A. criteria. Performed By: #### L 100.0100, L501.5200, L501.2300, L501.9520, L300.3900, L500.3400, L500.4050, L500.2500 ####[facility] [address] [place], [place], [phone] Potassium [Moles/Vol] 2.8 mmol/L Low 3.5-5.1 [facility] Comment on above: Performed By: #### L 100.0100, L501.5200, L501.2300, L501.9520, L300.3900, L500.3400, L500.4050, L500.2500 ####[facility] [address] [place], [place], [phone] Sodium [Moles/Vol] 137 mmol/L Normal 136-145 [facility] Comment on above: Performed By: #### L 100.0100, L501.5200, L501.2300, L501.9520, L300.3900, L500.3400, L500.4050, L500.2500 ####[facility] [address] [place], [place], [phone] Urea nitrogen [Mass/Vol] 32 mg/dL High 7-18 [facility] Comment on above: Performed By: #### L 100.0100, L501.5200, L501.2300, L501.9520, L300.3900, L500.3400, L500.4050, L500.2500 ####[facility] [address] [place], [place], [phone] CBC W/Diff, Automatedon 11-2 SMEAR COMMENT COMMENT Normal [facility] Comment on above: Result Comment: LYMP HOPENIA. Performed By: #### L 100.0100, L501.5200, L501.2300, L501.9520, L300.3900, L500.3400, L500.4050, L500.2500 ####[facility] [address] [place], [address] CTA Chest W/WO Contraston CTA Chest W/WO Contrast Normal [facility] Comprehensive Metabolic Prof ilon 04-01-2024 Albumin/Globulin [Mass ratio] 0.6 {ratio} Low 0.9-2.4 [facility] Comment on above: Performed By: #### L 100.0100, L501.5200, L501.2300, L501.9520, L300.3900, L500.3400, L500.4050, L500.2500 ####[facility] [address] [place], [place], [address] Consultation - Cardiologyon 04-01-2024 Consultation - Cardiology Normal [facility] D-Dimer Quantitative (DVT/PE )on 04-01-2024 D-DIMER QUANT 1.81 FEU/ug/m Invalid Interpretation Code 0.27-0.49 [facility] Comment on above: Order Comment: CRITI NATTY VALUE CALLED TO SUMA MC04/01/24 [place].RESULTS READ BACK BY SAME. Result Comment: D-Di jan ELEVATED (>0.49): Additional studies and clinicalassessments are indicated to conclude diagnosis of:Deep Vein Thrombosis (DVT) or Pulmonary Embolism (PE) Performed By: #### L 300.8000 ####[facility] [address] [place], [place], [phone] ENTERIC PATHOGEN PANEL STOOL on 04-01-2024 EP PANEL Normal [facility] Comment on above: Performed By: #### M 100.637 ####[facility] [address] [place], [address] Echo Completeon 04-01-2024 Echo Complete Normal [facility] Liver Profileon 04-01-2024 Albumin [Mass/Vol] 2.1 g/dL Low 3.2-5.0 [facility] Comment on above: Performed By: #### L 100.0100, L501.5200, L501.2300, L501.9520, L300.3900, L500.3400, L500.4050, L500.2500 ####[facility] [address] [place], [address] ALK P 96 U/L Normal 45-117 [facility] Comment on above: Performed By: #### L 100.0100, L501.5200, L501.2300, L501.9520, L300.3900, L500.3400, L500.4050, L500.2500 ####[facility] [address] [place], [address] ALT [Catalytic activity/Vol] 10 U/L Low 13-56 [facility] Comment on above: Performed By: #### L 100.0100, L501.5200, L501.2300, L501.9520, L300.3900, L500.3400, L500.4050, L500.2500 ####[facility] [address] [place], [address] AST [Catalytic activity/Vol] 16 U/L Normal 15-37 [facility] Comment on above: Performed By: #### L 100.0100, L501.5200, L501.2300, L501.9520, L300.3900, L500.3400, L500.4050, L500.2500 ####[facility] [address] [place], [address] Bilirubin [Mass/Vol] 0.60 mg/dL Normal 0.20-1.00 [facility] Comment on above: Result Comment: For patients on eltrombopag therapy, use of Dimension [place] TBIL is not recommended. Performed By: #### L 100.0100, L501.5200, L501.2300, L501.9520, L300.3900, L500.3400, L500.4050, L500.2500 ####[facility] [address] [place], [address] Bilirubin.direct [Mass/Vol] 0.24 mg/dL Normal 0.00-0.30 [facility] Comment on above: Performed By: #### L 100.0100, L501.5200, L501.2300, L501.9520, L300.3900, L500.3400, L500.4050, L500.2500 ####[facility] [address] [place], [address] Globulin (S) [Mass/Vol] 3.3 g/dL Normal 2.2-4.2 [facility] Comment on above: Performed By: #### L 100.0100, L501.5200, L501.2300, L501.9520, L300.3900, L500.3400, L500.4050, L500.2500 ####[facility] [address] [place], [place], [phone] T PROT 5.4 g/dL Low 6.4-8.2 [facility] Comment on above: Performed By: #### L 100.0100, L501.5200, L501.2300, L501.9520, L300.3900, L500.3400, L500.4050, L500.2500 ####[facility] [address] [place], [address] Magnesiumon 04-01-2024 Magnesium [Mass/Vol] 2.1 mg/dL Normal 1.6-2.6 [facility] Comment on above: Performed By: #### L 100.0100, L501.5200, L501.2300, L501.9520, L300.3900, L500.3400, L500.4050, L500.2500 ####[facility] [address] [place], [address] Phosphoruson 04-01-2024 Phosphate [Mass/Vol] 2.9 mg/dL Normal 2.5-4.9 [facility] Comment on above: Performed By: #### L 100.0100, L501.5200, L501.2300, L501.9520, L300.3900, L500.3400, L500.4050, L500.2500 ####[facility] [address] [place], [address] Prothrombin Time w/INRon INR Coag (PPP) [Relative time] 1.3 {INR} Normal [facility] Comment on above: Performed By: #### L 100.0100, L501.5200, L501.2300, L501.9520, L300.3900, L500.3400, L500.4050, L500.2500 ####[facility] [address] [place], [address] PT Coag (PPP) [Time] 16.5 s High 11.7-14.9 [facility] Comment on above: Performed By: #### L 100.0100, L501.5200, L501.2300, L501.9520, L300.3900, L500.3400, L500.4050, L500.2500 ####[facility] [address] [place], [address] Thyroid Stim Hormone (TSH)on 04-01-2024 TSH 0.588 uIU/mL Normal 0.358-3.740 [facility] Comment on above: Performed By: #### L 100.0100, L501.5200, L501.2300, L501.9520, L300.3900, L500.3400, L500.4050, L500.2500 ####[facility] [address] [place], [address] Abdomen/Pelvis W IV Cont ONL Yon 03-31-2024 Abdomen/Pelvis W IV Cont ONLY Normal [facility] BNP,B-Type NATRIURETIC PEPTI Leah 03-31-2024 Natriuretic peptide B (Bld) [Mass/Vol] 1148.9 pg/mL High 0-100 [facility] Comment on above: Performed By: #### L 503.6652 ####[facility] [address] [place], [address] CBC W/Diff, Automatedon 11-2 SMEAR COMMENT Normal [facility] Comment on above: Result Comment: BAND S NOTED Performed By: #### L 500.4050, M200.1000, L300.4310, L501.4020, L503.6005, L100.0100, L300.3900 ####[facility] [address] [place], [address] Chest 1 View (Portable)on Chest 1 View (Portable) Normal [facility] Comprehensive Metabolic Prof ilon 03-31-2024 Albumin [Mass/Vol] 2.6 g/dL Low 3.2-5.0 [facility] Comment on above: Order Comment: 'TROP ' Serial specimen #1, #2 or #3: 1 Performed By: #### L 500.4050, M200.1000, L300.4310, L501.4020, L503.6005, L100.0100, L300.3900 ####[facility] [address] [place], [address] Albumin/Globulin [Mass ratio] 0.8 {ratio} Low 0.9-2.4 [facility] Comment on above: Order Comment: 'TROP ' Serial specimen #1, #2 or #3: 1 Performed By: #### L 500.4050, M200.1000, L300.4310, L501.4020, L503.6005, L100.0100, L300.3900 ####[facility] [address] [place], [address] ALK P 102 U/L Normal 45-117 [facility] Comment on above: Order Comment: 'TROP ' Serial specimen #1, #2 or #3: 1 Performed By: #### L 500.4050, M200.1000, L300.4310, L501.4020, L503.6005, L100.0100, L300.3900 ####[facility] [address] [place], [address] ALT [Catalytic activity/Vol] 11 U/L Low 13-56 [facility] Comment on above: Order Comment: 'TROP ' Serial specimen #1, #2 or #3: 1 Performed By: #### L 500.4050, M200.1000, L300.4310, L501.4020, L503.6005, L100.0100, L300.3900 ####[facility] [address] [place], [address] AST [Catalytic activity/Vol] 18 U/L Normal 15-37 [facility] Comment on above: Order Comment: 'TROP ' Serial specimen #1, #2 or #3: 1 Performed By: #### L 500.4050, M200.1000, L300.4310, L501.4020, L503.6005, L100.0100, L300.3900 ####[facility] [address] [place], [address] Bilirubin [Mass/Vol] 0.70 mg/dL Normal 0.20-1.00 [facility] Comment on above: Order Comment: 'TROP ' Serial specimen #1, #2 or #3: 1 Result Comment: For patients on eltrombopag therapy, use of Dimension [place] TBIL is not recommended. Performed By: #### L 500.4050, M200.1000, L300.4310, L501.4020, L503.6005, L100.0100, L300.3900 ####[facility] [address] [place], [address] BUN/CRE 42.5 RATIO High 10-20 [facility] Comment on above: Order Comment: 'TROP ' Serial specimen #1, #2 or #3: 1 Performed By: #### L 500.4050, M200.1000, L300.4310, L501.4020, L503.6005, L100.0100, L300.3900 ####[facility] [address] [place], [address] CA,Total 8.2 mg/dL Low 8.5-10.1 [facility] Comment on above: Order Comment: 'TROP ' Serial specimen #1, #2 or #3: 1 Performed By: #### L 500.4050, M200.1000, L300.4310, L501.4020, L503.6005, L100.0100, L300.3900 ####[facility] [address] [place], [address] Chloride [Moles/Vol] 97 mmol/L Low 98-107 [facility] Comment on above: Order Comment: 'TROP ' Serial specimen #1, #2 or #3: 1 Performed By: #### L 500.4050, M200.1000, L300.4310, L501.4020, L503.6005, L100.0100, L300.3900 ####[facility] [address] [place], [address] CO2 [Moles/Vol] 24.0 mmol/L Normal 21.0-32.0 [facility] Comment on above: Order Comment: 'TROP ' Serial specimen #1, #2 or #3: 1 Performed By: #### L 500.4050, M200.1000, L300.4310, L501.4020, L503.6005, L100.0100, L300.3900 ####[facility] [address] [place], [address] Creatinine [Mass/Vol] 0.80 mg/dL Normal 0.55-1.02 [facility] Comment on above: Order Comment: 'TROP ' Serial specimen #1, #2 or #3: 1 Result Comment: The validity of the calculated GFR GFRAA in patients over70 years has not been determined. Clinical correlation isessential. Performed By: #### L 500.4050, M200.1000, L300.4310, L501.4020, L503.6005, L100.0100, L300.3900 ####[facility] [address] [place], [address] ECRCL 43.24 ml/min Normal [facility] Comment on above: Order Comment: 'TROP ' Serial specimen #1, #2 or #3: 1 Performed By: #### L 500.4050, M200.1000, L300.4310, L501.4020, L503.6005, L100.0100, L300.3900 ####[facility] [address] [place], [address] EST GFR - AA 90 mL/min Normal >60 [facility] Comment on above: Order Comment: 'TROP ' Serial specimen #1, #2 or #3: 1 Result Comment: Afri can Angolan GFR Calc Performed By: #### L 500.4050, M200.1000, L300.4310, L501.4020, L503.6005, L100.0100, L300.3900 ####[facility] [address] [place], [address] GAP 10 Normal 5-15 [facility] Comment on above: Order Comment: 'TROP ' Serial specimen #1, #2 or #3: 1 Performed By: #### L 500.4050, M200.1000, L300.4310, L501.4020, L503.6005, L100.0100, L300.3900 ####[facility] [address] [place], [address] GFR/1.73 sq M.predicted among non-blacks MDRD (S/P/Bld) [Vol rate/Area] 75 mL/min/{1.73_m2} Normal >60 [facility] Comment on above: Order Comment: 'TROP ' Serial specimen #1, #2 or #3: 1 Result Comment: Non- GFR Calc Performed By: #### L 500.4050, M200.1000, L300.4310, L501.4020, L503.6005, L100.0100, L300.3900 ####[facility] [address] [place], [address] Globulin (S) [Mass/Vol] 3.3 g/dL Normal 2.2-4.2 [facility] Comment on above: Order Comment: 'TROP ' Serial specimen #1, #2 or #3: 1 Performed By: #### L 500.4050, M200.1000, L300.4310, L501.4020, L503.6005, L100.0100, L300.3900 ####[facility] [address] [place], [address] Glucose [Mass/Vol] 97 mg/dL Normal 74-106 [facility] Comment on above: Order Comment: 'TROP ' Serial specimen #1, #2 or #3: 1 Performed By: #### L 500.4050, M200.1000, L300.4310, L501.4020, L503.6005, L100.0100, L300.3900 ####[facility] [address] [place], [address] Potassium [Moles/Vol] 3.0 mmol/L Low 3.5-5.1 [facility] Comment on above: Order Comment: 'TROP ' Serial specimen #1, #2 or #3: 1 Performed By: #### L 500.4050, M200.1000, L300.4310, L501.4020, L503.6005, L100.0100, L300.3900 ####[facility] [address] [place], [address] Sodium [Moles/Vol] 130 mmol/L Low 136-145 [facility] Comment on above: Order Comment: 'TROP ' Serial specimen #1, #2 or #3: 1 Performed By: #### L 500.4050, M200.1000, L300.4310, L501.4020, L503.6005, L100.0100, L300.3900 ####[facility] [address] [place], [address] T PROT 5.9 g/dL Low 6.4-8.2 [facility] Comment on above: Order Comment: 'TROP ' Serial specimen #1, #2 or #3: 1 Performed By: #### L 500.4050, M200.1000, L300.4310, L501.4020, L503.6005, L100.0100, L300.3900 ####[facility] [address] [place], [address] Urea nitrogen [Mass/Vol] 34 mg/dL High 7-18 [facility] Comment on above: Order Comment: 'TROP ' Serial specimen #1, #2 or #3: 1 Performed By: #### L 500.4050, M200.1000, L300.4310, L501.4020, L503.6005, L100.0100, L300.3900 ####[facility] [address] [place], [address] Emergency Department Summary on 03-31-2024 Emergency Department Summary Normal [facility] H AND P Exam - Hospitaliston 03-31-2024 H&P Exam - Hospitalist Normal [facility] L501.4020on 03-31-2024 TROPONIN-I HS 25 pg/mL Normal 3.0-54.0 [facility] Comment on above: Order Comment: 'TROP ' Serial specimen #1, #2 or #3: 2 Result Comment: Plea se Note: New Test Units and Gender Specific Reference Ranges. For more information see Policy Stat Procedure [place] High Sensitivity Troponin (TNIH) and attachments. Performed By: #### L 501.4020 ####[facility] [address] [place], [address] TROPONIN-I HS 27 pg/mL Normal 3.0-54.0 [facility] Comment on above: Order Comment: 'TROP ' Serial specimen #1, #2 or #3: 1 Result Comment: Plea se Note: New Test Units and Gender Specific Reference Ranges. For more information see Policy Stat Procedure [place] High Sensitivity Troponin (TNIH) and attachments. Performed By: #### L 500.4050, M200.1000, L300.4310, L501.4020, L503.6005, L100.0100, L300.3900 ####[facility] [address] [place], [phone] Lactic Acidon 03-31-2024 Lactate [Moles/Vol] 1.0 mmol/L Normal 0.4-1.9 [facility] Comment on above: Order Comment: Y Performed By: #### L 500.4050, M200.1000, L300.4310, L501.4020, L503.6005, L100.0100, L300.3900 ####[facility] [address] [place], [address] M100.678on 03-31-2024 M100.678 Pending SARS-CoV-2 (COVID 19) Negative INFLUENZA A Negative INFLUENZA B Negative RSV PCR Negative Normal [facility] Comment on above: Performed By: #### L 400.0001, M100.678, M100.2200 ####[facility] [address] [place], [address] Partial Thromboplast Timeon 03-31-2024 aPTT Coag (Bld) [Time] 41.6 s High 24.1-36.2 [facility] Comment on above: Performed By: #### L 500.4050, M200.1000, L300.4310, L501.4020, L503.6005, L100.0100, L300.3900 ####[facility] [address] [place], [address] Prothrombin Time w/INRon INR Coag (PPP) [Relative time] 1.3 {INR} Normal [facility] Comment on above: Performed By: #### L 500.4050, M200.1000, L300.4310, L501.4020, L503.6005, L100.0100, L300.3900 ####[facility] [address] [place], [address] PT Coag (PPP) [Time] 16.4 s High 11.7-14.9 [facility] Comment on above: Performed By: #### L 500.4050, M200.1000, L300.4310, L501.4020, L503.6005, L100.0100, L300.3900 ####[facility] [address] [place], [address] Urinalysis, Completeon 03-31 BACTERIA 2+ /hpf Normal None Seen [facility] Comment on above: Order Comment: COLLE CTOR TO SPECIFY Performed By: #### L 400.0001, M1.678, M1.2200 ####[facility] [address] [place], [address] WBC 0-5 SEEN Normal 0-5 [facility] Comment on above: Order Comment: COLLE CTOR TO SPECIFY Performed By: #### L 400.0001, M100.678, M1.2200 ####[facility] [address] [place], [address] EPI,SQUAMOUS 0 SEEN Normal 5-10 [facility] Comment on above: Order Comment: COLLE CTOR TO SPECIFY Performed By: #### L 400.0001, M100.678, M100.2200 ####[facility] [address] [place], [address] Mucus Ql (Urine sed) 0 SEEN Normal [facility] Comment on above: Order Comment: COLLE CTOR TO SPECIFY Performed By: #### L 400.0001, M100.678, M100.2200 ####[facility] [address] [place], [address] RBC 0 SEEN Normal 0-5 [facility] Comment on above: Order Comment: COLLE CTOR TO SPECIFY Performed By: #### L 400.0001, M100.678, M100.2200 ####[facility] [address] [place], [address] Hips B/L min 2 views w/ Pelv spencer 03-30-2024 Hips B/L min 2 views w/ Pelvis Normal [facility] Vitamin B12 measurementOrder ed By: Fransisca Orlando on 11-16-2023 Cobalamin (Vitamin B12) [Mass/Vol] 311 pg/mL 211-911 [facility] Absolute lymphocyte countOrd ered By: Fransisca Orlando on 05-11-2023 Lymphocytes Auto (Unsp spec) [#/Vol] 0.64 10*3/uL 0.83-4.51 [facility] Basophil percentageOrdered B y: Fransisca Oralndo on 05-11-2023 Basophils/100 WBC (Bld) 0.6 % 0-1 [facility] Eosinophils/100 WBC (Bld) 10.1 % 0-5 [facility] Neutrophils (Bld) [#/Vol] 2.1 10*3/uL 2.0-7.7 [facility] Neutrophils/100 WBC (Bld) 59.2 % 47-70 [facility] WBC (Bld) [#/Vol] 3.5 10*3/uL 4.4-11.0 [facility] Blood erythrocytes count (nu mber/volume)Ordered By: Fransisca Orlando on 05-11-2023 RBC (Bld) [#/Vol] 3.38 10*6/uL 4.2-5.4 [facility] Blood hemoglobin measurement (mass/volume)Ordered By: Fransisca Orlando on 05-11-2023 Hemoglobin (Bld) [Mass/Vol] 11.5 g/dL 12.0-15.0 [facility] Blood lymphocytes/100 leukoc ytesOrdered By: Fransisca Orlando on 05-11-2023 Lymphocytes/100 WBC (Bld) 18.5 % 19-41 [facility] Blood monocytes/100 leukocyt esOrdered By: Fransisca Orlando on 05-11-2023 Monocytes/100 WBC (Bld) 11.3 % 0-10 [facility] Blood platelet mean volumeOr dered By: Fransisca Orlando on 05-11-2023 Platelet mean volume (Bld) [Entitic vol] 9.9 fL 6.2-12.0 [facility] Determination of erythrocyte mean corpuscular volume (MCV)Ordered By: Fransisca Orlando on 05-11-2023 MCV (RBC) [Entitic vol] 100.3 fL 81-99 [facility] Hematocrit Auto (Bld) [Volum e fraction][facility]: [facility] on 05-11-2023 Hematocrit (Bld) [Volume fraction] 33.9 % 37-47 [facility] Hemoglobin in reticulocytes (mass per reticulocyte)Or[facility] By: [facility] on 05-11-2023 Hemoglobin (Reticulocytes) [Entitic mass] 34.8 pg 30-35 [facility] Iron measurement (mass/mass) Ordered By: Fransisca Orlando on 05-11-2023 Iron (Unsp spec) [Mass/Mass] 137 ug/dL 50-170 [facility] Laboratory - Hematology and Cell countsOrdered By: [facility] on 05-11-2023 Erythrocyte distribution width (RBC) [Entitic vol] 47.0 fL 35.1-43.9 [facility] Erythrocyte distribution width (RBC) [Ratio] 12.7 % 11.6-14.6 [facility] Immature granulocytes/100 WBC (Bld) 0.300 % 0.0-0.9 [facility] Comment on above: IG% - Immature Granu locytes (promyelocytes, myelocytes and metamyelocytes) > 1% indicates that a LEFT SHIFT is Present. MCH (RBC) [Entitic mass] 34.0 pg 27.0-32.0 [facility] Nucleated RBC/100 WBC (Bld) [Ratio] 0 % 0-5 [facility] MCHC Auto (RBC) [Mass/Vol]Or dered By: Fransisca Orlando on 05-11-2023 MCHC (RBC) [Mass/Vol] 33.9 g/dL 32-36 [facility] No Panel InformationOrdered By: Fransisca Orlando on 05-11-2023 Immature Reticulocyte Fraction 10.40 % 3.00-15.90 [facility] Reticulocyte Count 1.96 % 0.5-1.5 [facility] Total Iron Binding Capacity 213 ug/dL 250-450 [facility] Platelets bldOrdered By: Kenan Orlando on 05-11-2023 Platelets (Bld) [#/Vol] 167 10*3/uL 150-450 [facility] Serum or plasma ferritin pineda surement (mass/volume)Ordered By: Fransisca Orlando on 05-11-2023 Ferritin [Mass/Vol] 82 ng/mL 8-252 [facility] Serum or plasma iron saturat ion measurement (mass fraction)Ordered By: Fransisca Orlando on 05-11-2023 Iron saturation [Mass fraction] 64.3 % 15.0-55.0 [facility] Laboratory - Chemistry and C hemistry - challengeOrdered By: Fransisca Orlando on 11-03-2022 Cobalamin (Vitamin B12) [Mass/Vol] 370 pg/mL [facility] Laboratory - Chemistry and C hemistry - challengeOrdered By: Ingrid Grimaldo on 08-11-2022 Cobalamin (Vitamin B12) [Mass/Vol] 775 pg/mL [facility] Serum or plasma folate measu rement (mass/volume)Ordered By: Ingrid Grimaldo on 08-11-2022 Folate [Mass/Vol] 12.70 ng/mL 3.1-55.4 [facility] Culture, urineOrdered By: Dr Sadia Trevizo on 08-08-2022 Bacteria identified Cx Nom (U) Escherichia coli [facility] Basophil percentageOrdered B y: Dr. Arce on 08-06-2022 Chloride [Moles/Vol] 100 mmol/L 98-107 [facility] Glucose [Mass/Vol] 100 mg/dL 74-106 [facility] Comment on above: Fasting Glucose resu lt from 100 to 125 mg/dL suggests IMPAIRED HOMEOSTASIS per A.D.A. criteria. Potassium [Moles/Vol] 4.1 mmol/L 3.5-5.1 [facility] Sodium [Moles/Vol] 136 mmol/L 136-145 [facility] WBC (Bld) [#/Vol] 7.0 10*3/uL 4.4-11.0 [facility] Basophil percentageOrdered B y: Dr. Trevizo on 08-06-2022 Basophil percentage 25-50 SEEN /hpf 0-5 [facility] Bilirubin Test strip Ql (U)O rdered By: Dr. Trevizo on 08-06-2022 Bilirubin Ql (U) Negative Negative [facility] Blood erythrocytes count (nu mber/volume)Ordered By: Dr. Arce on 08-06-2022 RBC (Bld) [#/Vol] 3.48 10*6/uL 4.2-5.4 [facility] Blood hemoglobin measurement (mass/volume)Ordered By: Dr. Arce on 08-06-2022 Hemoglobin (Bld) [Mass/Vol] 11.3 g/dL 12.0-15.0 [facility] Blood platelet mean volumeOr dered By: Dr. Arce on 08-06-2022 Platelet mean volume (Bld) [Entitic vol] 9.8 fL 6.2-12.0 [facility] Determination of erythrocyte mean corpuscular volume (MCV)Ordered By: Dr. Arce on 08-06-2022 MCV (RBC) [Entitic vol] 100.3 fL 81-99 [facility] Hematocrit Auto (Bld) [Volum e fraction]Ordered By: Dr. Arce on 08-06-2022 Hematocrit (Bld) [Volume fraction] 34.9 % 37-47 [facility] Ketones Test strip Ql (U)Ord ered By: Dr. Trevizo on 08-06-2022 Ketones Ql (U) Negative Negative [facility] Laboratory - Chemistry and C hemistry - challengeOrdered By: Dr. Arce on 08-06-2022 CO2 [Moles/Vol] 32.0 mmol/L 21.0-32.0 [facility] Urea nitrogen/Creatinine [Mass ratio] 28.1 mg/mg 10-20 [facility] Laboratory - Hematology and Cell countsOrdered By: Dr. Arce on 08-06-2022 Erythrocyte distribution width (RBC) [Entitic vol] 49.0 fL 35.1-43.9 [facility] Erythrocyte distribution width (RBC) [Ratio] 13.3 % 11.6-14.6 [facility] MCH (RBC) [Entitic mass] 32.5 pg 27.0-32.0 [facility] MCHC Auto (RBC) [Mass/Vol]Or dered By: Dr. Arce on 08-06-2022 MCHC (RBC) [Mass/Vol] 32.4 g/dL 32-36 [facility] Mucus LM Ql (Urine sed)Order ed By: Dr. Trevizo on 08-06-2022 Mucus Ql (Urine sed) 0 SEEN /hpf [facility] Nitrite Test strip Ql (U)Ord ered By: Dr. Trevizo on 08-06-2022 Nitrite Ql (U) Positive Negative [facility] No Panel InformationOrdered By: Dr. Arce on 08-06-2022 Estimated GFR (MDRD) Amer 208 mL/min >60 [facility] Comment on above: GFR Calc Estimated GFR (MDRD) Non-Af Amer 172 mL/min >60 [facility] Comment on above: Non- GFR Calc Thyroid Stimulating Hormone (TSH) 1.03 uIU/mL 0.358-3.74 [facility] Platelets bldOrdered By: Dr. Arce on 08-06-2022 Platelets (Bld) [#/Vol] 269 10*3/uL 150-450 [facility] Protein Test strip Ql (U)Ord ered By: Dr. Trevizo on 08-06-2022 Protein Ql (U) 30 mg/dl Negative [facility] Serum or plasma calcium cedric urement (mass/volume)Ordered By: Dr. Arce on 08-06-2022 Calcium [Mass/Vol] 8.9 mg/dL 8.5-10.1 [facility] Serum or plasma creatinine m easurement (mass/volume)Ordered By: Dr. Arce on 08-06-2022 Creatinine [Mass/Vol] 0.39 mg/dL 0.55-1.02 [facility] Comment on above: The validity of the calculated GFR & GFRAA in patients over 70 years has not been determined. Clinical correlation is essential. Serum or plasma urea nitroge n measurement (mass/volume)Ordered By: Dr. Arce on 08-06-2022 Urea nitrogen [Mass/Vol] 11 mg/dL 7-18 [facility] Squamous epithelial cells de tection in urine sediment by light microscopyOrdered By: Dr. Trevizo on 08-06-2022 Epithelial cells.squamous LM Ql (Urine sed) 0 SEEN /hpf 5-10 [facility] Thin prep Papanicolaou smear with manual screeningOrdered By: Dr. Arce on 08-06-2022 Thin prep Papanicolaou smear with manual screening 4 5-15 [facility] Urine blood detectionOrdered By: Dr. Trevizo on 08-06-2022 RBC Ql (U) 50 /ul Negative [facility] RBC Ql (U) 10-25 SEEN /hpf 0-5 [facility] Urine clarityOrdered By: Dr. Trevizo on 08-06-2022 Clarity (U) Cloudy Clear [facility] Urine color determinationOrd ered By: Dr. Trevizo on 08-06-2022 Color (U) Yellow Yellow [facility] Urine glucose detectionOrder ed By: Dr. Trevizo on 08-06-2022 Glucose Ql (U) Normal mg/dl Normal [facility] Urine leukocyte esterase det ection by dipstickOrdered By: Dr. Trevizo on 08-06-2022 Leukocyte esterase Test strip Ql (U) 500 /ul Negative [facility] Urine pHOrdered By: Dr. Wadsworth iff on 08-06-2022 pH (U) 7.0 [pH] 5.0 - 8.0 [facility] Urine sediment bacteria coun t by microscopy (number/high power field)Ordered By: Dr. Trevizo on 08-06-2022 Bacteria LM.HPF (Urine sed) [#/Area] 3 /[HPF] None Seen [facility] Urine specific gravity measu rementOrdered By: Dr. Trevizo on 08-06-2022 Specific gravity (U) [Rel density] 1.005 1.002-1.030 [facility] Urobilinogen Auto test strip Ql (U)Ordered By: Dr. Trevizo on 08-06-2022 Urobilinogen Ql (U) Normal mg/dl Normal [facility] Absolute lymphocyte countOrd ered By: Stef Ewing on 06-04-2022 Lymphocytes Auto (Unsp spec) [#/Vol] 0.87 10*3/uL 0.83-4.51 [facility] Albumin Elph [Mass/Vol]Order ed By: Stef Ewing on 06-04-2022 Albumin [Mass/Vol] 4.0 g/dL 2.9-4.4 [facility] Basophil percentageOrdered B y: Stef Ewing on 06-04-2022 Basophils/100 WBC (Bld) 0.5 % 0-1 [facility] Eosinophils/100 WBC (Bld) 1.6 % 0-5 [facility] LDH [Catalytic activity/Vol] 191 U/L 84-246 [facility] Neutrophils (Bld) [#/Vol] 3.1 10*3/uL 2.0-7.7 [facility] Neutrophils/100 WBC (Bld) 71.4 % 47-70 [facility] WBC (Bld) [#/Vol] 4.3 10*3/uL 4.4-11.0 [facility] Blood erythrocytes count (nu mber/volume)Ordered By: Stef Ewing on 06-04-2022 RBC (Bld) [#/Vol] 3.58 10*6/uL 4.2-5.4 [facility] Blood hemoglobin measurement (mass/volume)Ordered By: Stef Ewing on 06-04-2022 Hemoglobin (Bld) [Mass/Vol] 12.1 g/dL 12.0-15.0 [facility] Blood lymphocytes/100 leukoc ytesOrdered By: Stef Ewing on 06-04-2022 Lymphocytes/100 WBC (Bld) 20.1 % 19-41 [facility] Blood monocytes/100 leukocyt esOrdered By: Stef Ewing on 06-04-2022 Monocytes/100 WBC (Bld) 6.2 % 0-10 [facility] Blood platelet mean volumeOr dered By: Stef Ewing on 06-04-2022 Platelet mean volume (Bld) [Entitic vol] 9.8 fL 6.2-12.0 [facility] Determination of erythrocyte mean corpuscular volume (MCV)Ordered By: Stef Ewing on 06-04-2022 MCV (RBC) [Entitic vol] 101.7 fL 81-99 [facility] Hematocrit Auto (Bld) [Volum e fraction]Ordered By: Stef Ewing on 06-04-2022 Hematocrit (Bld) [Volume fraction] 36.4 % 37-47 [facility] Hemoglobin in reticulocytes (mass per reticulocyte)Ordered By: Stef Ewing on 06-04-2022 Hemoglobin (Reticulocytes) [Entitic mass] 35.8 pg 30-35 [facility] Interpretation of serum or p lasma protein pattern by immunofixation (narrative resultOrdered By: Stef Ewing on 06-04-2022 Protein Fractions Immunofixation Xavier [Interp] See comment [facility] Comment on above: Result: Not Observed Iron measurement (mass/mass) Ordered By: Stef Ewing on 06-04-2022 Iron (Unsp spec) [Mass/Mass] 147 ug/dL 50-170 [facility] Laboratory - Hematology and Cell countsOrdered By: Stef Ewing on 06-04-2022 Erythrocyte distribution width (RBC) [Entitic vol] 49.3 fL 35.1-43.9 [facility] Erythrocyte distribution width (RBC) [Ratio] 13.2 % 11.6-14.6 [facility] Immature granulocytes/100 WBC (Bld) 0.200 % 0.0-0.9 [facility] Comment on above: IG% - Immature Granu locytes (promyelocytes, myelocytes and metamyelocytes) > 1% indicates that a LEFT SHIFT is Present. MCH (RBC) [Entitic mass] 33.8 pg 27.0-32.0 [facility] Nucleated RBC/100 WBC (Bld) [Ratio] 0 % 0-5 [facility] Auto (RBC) [Mass/Vol]Or dered By: Stef Ewing on 06-04-2022 MCHC (RBC) [Mass/Vol] 33.2 g/dL 32-36 [facility] No Panel InformationOrdered By: Stef Ewing on 06-04-2022 Addendum Document Comment . [facility] Comment on above: Protein electrophore sis scan will follow via computer,mail, or meat cutting block repairer delivery. Haptoglobin 60 mg/dL 42-346 [facility] Comment on above: Performed at: [facility] [address] [id number] Director: Martín Hobbs PhD, Phone: [phone] Immature Reticulocyte Fraction 12.90 % 3.00-15.90 [facility] Reticulocyte Count 1.89 % 0.5-1.5 [facility] Total Iron Binding Capacity 280 ug/dL 250-450 [facility] Platelets bldOrdered By: Kt Ewing on 06-04-2022 Platelets (Bld) [#/Vol] 218 10*3/uL 150-450 [facility] Serum [id number] measu rement by electrophoresisOrdered By: Stef Ewing on 06-04-2022 Alpha 1 globulin Elph [Mass/Vol] 0.2 g/dL 0.0-0.4 [facility] Alpha 1 globulin Elph [Mass/Vol] 0.5 g/dL 0.4-1.0 [facility] Serum globulin measurement ( mass/volume)Ordered By: Stef Ewing on 06-04-2022 Globulin (S) [Mass/Vol] 2.5 g/dL 2.2-3.9 [facility] Serum or plasma IgA measurem ent (mass/volume)Ordered By: Stef Ewing on 06-04-2022 IgA [Mass/Vol] 178 mg/dL 64-422 [facility] Serum or plasma IgG measurem ent (mass/volume)Ordered By: Stef Ewing on 06-04-2022 IgG [Mass/Vol] 999 mg/dL [phone] [facility] Serum or plasma IgM measurem ent (mass/volume)Ordered By: Stef Ewing on 06-04-2022 IgM [Mass/Vol] 85 mg/dL 26-217 [facility] Serum or plasma beta globuli n measurement by electrophoresis (mass/volume)Ordered By: Stef Ewing on 06-04-2022 Beta globulin Elph [Mass/Vol] 0.9 g/dL 0.7-1.3 [facility] Serum or plasma ferritin pineda surement (mass/volume)Ordered By: Stef Ewing on 06-04-2022 Ferritin [Mass/Vol] 13 ng/mL 8-252 [facility] Serum or plasma gamma globul in measurement by electrophoresis (mass/volume)Ordered By: Stef Ewing on 06-04-2022 Gamma globulin Elph [Mass/Vol] 0.9 g/dL 0.4-1.8 [facility] Serum or plasma immunoelectr ophoresis interpretation (nominal result)Ordered By: Stef Ewing on 06-04-2022 Interpretation IEP [Interp] Comment . [facility] Comment on above: No monoclonality det ected. Thin prep Papanicolaou smear with manual screeningOrdered By: Stef Ewing on 06-04-2022 Thin prep Papanicolaou smear with manual screening 1.7 0.7-1.7 [facility] Total protein bloodOrdered B y: Stef Ewing on 06-04-2022 Protein [Mass/Vol] 6.5 g/dL 6.0-8.5 [facility] Absolute lymphocyte countOrd ered By: Dr. Orlando on 05-06-2022 Lymphocytes Auto (Unsp spec) [#/Vol] 0.95 10*3/uL 0.83-4.51 [facility] Basophil percentageOrdered B y: Dr. Orlando on 05-06-2022 Basophils/100 WBC (Bld) 0.9 % 0-1 [facility] Eosinophils/100 WBC (Bld) 4.4 % 0-5 [facility] Neutrophils (Bld) [#/Vol] 2.0 10*3/uL 2.0-7.7 [facility] Neutrophils/100 WBC (Bld) 57.1 % 47-70 [facility] WBC (Bld) [#/Vol] 3.4 10*3/uL 4.4-11.0 [facility] Blood erythrocytes count (nu mber/volume)Ordered By: Dr. Orlando on 05-06-2022 RBC (Bld) [#/Vol] 3.49 10*6/uL 4.2-5.4 [facility] Blood hemoglobin measurement (mass/volume)Ordered By: Dr. Orlando on 05-06-2022 Hemoglobin (Bld) [Mass/Vol] 11.5 g/dL 12.0-15.0 [facility] Blood lymphocytes/100 leukoc ytesOrdered By: Dr. Orlando on 05-06-2022 Lymphocytes/100 WBC (Bld) 27.9 % 19-41 [facility] Blood monocytes/100 leukocyt esOrdered By: Dr. Orlando on 05-06-2022 Monocytes/100 WBC (Bld) 9.4 % 0-10 [facility] Blood platelet mean volumeOr dered By: Dr. Orlando on 05-06-2022 Platelet mean volume (Bld) [Entitic vol] 9.6 fL 6.2-12.0 [facility] Determination of erythrocyte mean corpuscular volume (MCV)Ordered By: Dr. Orlando on 05-06-2022 MCV (RBC) [Entitic vol] 101.4 fL 81-99 [facility] Hematocrit Auto (Bld) [Volum e fraction]Ordered By: Dr. Orlando on 05-06-2022 Hematocrit (Bld) [Volume fraction] 35.4 % 37-47 [facility] Iron measurement (mass/mass) Ordered By: Dr. Orlando on 05-06-2022 Iron (Unsp spec) [Mass/Mass] 149 ug/dL 50-170 [facility] Laboratory - Hematology and Cell countsOrdered By: Dr. Orlando on 05-06-2022 Erythrocyte distribution width (RBC) [Entitic vol] 49.5 fL 35.1-43.9 [facility] Erythrocyte distribution width (RBC) [Ratio] 13.2 % 11.6-14.6 [facility] Immature granulocytes/100 WBC (Bld) 0.300 % 0.0-0.9 [facility] Comment on above: IG% - Immature Granu locytes (promyelocytes, myelocytes and metamyelocytes) > 1% indicates that a LEFT SHIFT is Present. MCH (RBC) [Entitic mass] 33.0 pg 27.0-32.0 [facility] Nucleated RBC/100 WBC (Bld) [Ratio] 0 % 0-5 [facility] MCHC Auto (RBC) [Mass/Vol]Or dered By: Dr. Orlando on 05-06-2022 MCHC (RBC) [Mass/Vol] 32.5 g/dL 32-36 [facility] No Panel InformationOrdered By: Dr. Orlando on 05-06-2022 Total Iron Binding Capacity 246 ug/dL 250-450 [facility] Platelets bldOrdered By: Dr. Orlando on 05-06-2022 Platelets (Bld) [#/Vol] 213 10*3/uL 150-450 [facility] Serum or plasma ferritin pineda surement (mass/volume)Ordered By: Dr. Orlando on 05-06-2022 Ferritin [Mass/Vol] 16 ng/mL 8-252 [facility] Serum or plasma iron saturat ion measurement (mass fraction)Ordered By: Dr. Orlando on 05-06-2022 Iron saturation [Mass fraction] 60.6 % 15.0-55.0 [facility] Absolute lymphocyte counton 02-06-2022 Lymphocytes Auto (Unsp spec) [#/Vol] 0.86 10*3/uL 0.83-4.51 [facility] Work Phone: Basophil percentageon 2021 Basophils/100 WBC (Bld) 0.6 % 0-1 [facility] Work Phone: Eosinophils/100 WBC (Bld) 4.7 % 0-5 [facility] Work Phone: Neutrophils (Bld) [#/Vol] 2.1 10*3/uL 2.0-7.7 [facility] Work Phone: Neutrophils/100 WBC (Bld) 61.5 % 47-70 [facility] Work Phone: WBC (Bld) [#/Vol] 3.4 10*3/uL 4.4-11.0 [facility] Work Phone: [phone] Blood erythrocytes count (nu mber/volume)on 02-06-2022 RBC (Bld) [#/Vol] 3.77 10*6/uL 4.2-5.4 [facility] Work Phone: Blood hemoglobin measurement (mass/volume)on 02-06-2022 Hemoglobin (Bld) [Mass/Vol] 10.7 g/dL 12.0-15.0 [facility] Work Phone: Blood lymphocytes/100 leukoc yteson 02-06-2022 Lymphocytes/100 WBC (Bld) 25.5 % 19-41 [facility] Work Phone: [phone] Blood monocytes/100 leukocyt eson 02-06-2022 Monocytes/100 WBC (Bld) 7.4 % 0-10 [facility] Work Phone: Blood platelet mean volumeon 02-06-2022 Platelet mean volume (Bld) [Entitic vol] 8.7 fL 6.2-12.0 [facility] Work Phone: Determination of erythrocyte mean corpuscular volume (MCV)on 02-06-2022 MCV (RBC) [Entitic vol] 89.1 fL 81-99 [facility] Work Phone: Hematocrit Auto (Bld) [Volum e fraction]on 02-06-2022 Hematocrit (Bld) [Volume fraction] 33.6 % 37-47 [facility] Work Phone: Hemoglobin in reticulocytes (mass per reticulocyte)Ordered By: Dr. Orlando on 02-06-2022 Hemoglobin (Reticulocytes) [Entitic mass] 34.5 pg 30-35 [facility] Iron measurement (mass/mass) on 02-06-2022 Iron (Unsp spec) [Mass/Mass] 180 ug/dL 50-170 [facility] Work Phone: Laboratory - Chemistry and C hemistry - challengeOrdered By: Dr. Orlando on 02-06-2022 Cobalamin (Vitamin B12) [Mass/Vol] 357 pg/mL 211-911 [facility] Laboratory - Hematology and Cell countsOrdered By: Dr. Orlando on 02-06-2022 Anisocytosis Ql (Bld) 1+ [facility] Laboratory - Hematology and Cell countson 02-06-2022 Erythrocyte distribution width (RBC) [Entitic vol] 87.0 fL 35.1-43.9 [facility] Work Phone: [phone] Erythrocyte distribution width (RBC) [Ratio] 28.3 % 11.6-14.6 [facility] Work Phone: [phone] Immature granulocytes/100 WBC (Bld) 0.300 % 0.0-0.9 [facility] Work Phone: [phone] Comment on above: IG% - Immature Granu locytes (promyelocytes, myelocytes and metamyelocytes) > 1% indicates that a LEFT SHIFT is Present. MCH (RBC) [Entitic mass] 28.4 pg 27.0-32.0 [facility] Work Phone: [phone] Nucleated RBC/100 WBC (Bld) [Ratio] 0 % 0-5 [facility] Work Phone: [phone] MCHC Auto (RBC) [Mass/Vol]on 02-06-2022 MCHC (RBC) [Mass/Vol] 31.8 g/dL 32-36 [facility] Work Phone: No Panel InformationOrdered By: Dr. Orlando on 02-06-2022 Immature Reticulocyte Fraction 10.80 % 3.00-15.90 [facility] Reticulocyte Count 1.16 % 0.5-1.5 [facility] No Panel Informationon 02-06 Total Iron Binding Capacity 293 ug/dL 250-450 [facility] Work Phone: No Panel InformationOrdered By: Fransisca Orlando on 02-06-2022 1+ [facility] Platelets bldon 02-06-2022 Platelets (Bld) [#/Vol] 188 10*3/uL 150-450 [facility] Work Phone: Serum or plasma ferritin pineda surement (mass/volume)on 02-06-2022 Ferritin [Mass/Vol] 14 ng/mL 8-252 [facility] Work Phone: Serum or plasma iron saturat ion measurement (mass fraction)on 02-06-2022 Iron saturation [Mass fraction] 61.4 % 15.0-55.0 [facility] Work Phone: Absolute lymphocyte counton 01-03-2022 Lymphocytes Auto (Unsp spec) [#/Vol] 0.87 10*3/uL 0.83-4.51 [facility] Work Phone: Basophil percentageon 2021 Basophils/100 WBC (Bld) 1.0 % 0-1 [facility] Work Phone: Eosinophils/100 WBC (Bld) 3.9 % 0-5 [facility] Work Phone: Neutrophils (Bld) [#/Vol] 2.7 10*3/uL 2.0-7.7 [facility] Work Phone: Neutrophils/100 WBC (Bld) 66.5 % 47-70 [facility] Work Phone: WBC (Bld) [#/Vol] 4.1 10*3/uL 4.4-11.0 [facility] Work Phone: Blood erythrocytes count (nu mber/volume)on 01-03-2022 RBC (Bld) [#/Vol] 4.13 10*6/uL 4.2-5.4 [facility] Work Phone: Blood hemoglobin measurement (mass/volume)on 01-03-2022 Hemoglobin (Bld) [Mass/Vol] 9.5 g/dL 12.0-15.0 [facility] Work Phone: Blood lymphocytes/100 leukoc yteson 01-03-2022 Lymphocytes/100 WBC (Bld) 21.1 % 19-41 [facility] Work Phone: Blood manual differential co mment interpretation (narrative result)on 01-03-2022 Manual differential comment Xavier (Bld) [Interp] SCANNED [facility] Work Phone: Blood monocytes/100 leukocyt eson 01-03-2022 Monocytes/100 WBC (Bld) 7.3 % 0-10 [facility] Work Phone: Blood platelet mean volumeon 01-03-2022 Platelet mean volume (Bld) [Entitic vol] 9.4 fL 6.2-12.0 [facility] Work Phone: Determination of erythrocyte mean corpuscular volume (MCV)on 01-03-2022 MCV (RBC) [Entitic vol] 79.4 fL 81-99 [facility] Work Phone: Hematocrit Auto (Bld) [Volum e fraction]on 01-03-2022 Hematocrit (Bld) [Volume fraction] 32.8 % 37-47 [facility] Work Phone: [phone] Hypochromatic red blood cell detectionon 01-03-2022 Hypochromia Ql (Bld) 3+ [facility] Work Phone: Laboratory - Hematology and Cell countson 01-03-2022 Anisocytosis Ql (Bld) 2+ [facility] Work Phone: [phone] Erythrocyte distribution width (RBC) [Entitic vol] 66.3 fL 35.1-43.9 [facility] Work Phone: [phone] Erythrocyte distribution width (RBC) [Ratio] 25.1 % 11.6-14.6 [facility] Work Phone: [phone] Immature granulocytes/100 WBC (Bld) 0.200 % 0.0-0.9 [facility] Work Phone: Comment on above: IG% - Immature Granu locytes (promyelocytes, myelocytes and metamyelocytes) > 1% indicates that a LEFT SHIFT is Present. MCH (RBC) [Entitic mass] 23.0 pg 27.0-32.0 [facility] Work Phone: Nucleated RBC/100 WBC (Bld) [Ratio] 0 % 0-5 [facility] Work Phone: MCHC Auto (RBC) [Mass/Vol]on 01-03-2022 MCHC (RBC) [Mass/Vol] 29.0 g/dL 32-36 [facility] Work Phone: Platelets bldon 01-03-2022 Platelets (Bld) [#/Vol] 216 10*3/uL 150-450 [facility] Work Phone: Albumin Elph [Mass/Vol]on Albumin [Mass/Vol] 3.8 g/dL 2.9-4.4 [facility] Work Phone: Atypical perinuclear antineu trophil cytoplasmic antibodies measurementon 12-27-2021 Neutrophil cytoplasmic Ab.perinuclear.atypical IF (S) [Titer] <1:20 titer Neg:<1:20 [facility] Work Phone: Comment on above: The atypical pANCA p attern has been observed in asignificant percentage of patients with ulcerative colitis,primary sclerosing cholangitis and autoimmune hepatitis. Basophil percentageon 2021 Basophil percentage < 0.2 AI 0.0-0.9 [facility] Work Phone: Interpretation of serum or p lasma protein pattern by immunofixation (narrative resulton 12-27-2021 Protein Fractions Immunofixation Xavier [Interp] See comment [facility] Work Phone: Comment on above: Result: Not Observed Laboratory - Chemistry and C hemistry - challengeon 12-27-2021 Cobalamin (Vitamin B12) [Mass/Vol] 388 pg/mL 211-911 [facility] Work Phone: Free T4 [Mass/Vol] 0.95 ng/dL 0.76-1.46 [facility] Work Phone: No Panel Informationon 12-27 Addendum Document Comment . [facility] Work Phone: Comment on above: Protein electrophore sis scan will follow via computer,mail, or meat cutting block repairer delivery. Centromere B Antibody <0.2 AI 0.0-0.9 [facility] Work Phone: [phone] Endomysial IgA Antibody Negative Negative [facility] Work Phone: [phone] Free Triiodothyronine (T3) pg/dL 2.2 pg/mL 2.18-3.98 [facility] Work Phone: [phone] Immunoglobulin E 83 IU/mL 6-495 [facility] Work Phone: [phone] Comment on above: Performed at: [facility] [place], [place] [id number] Director: Martín Hobbs PhD, Phone: [phone] at: [facility] [address] [id number] Director: Eliel Hu MD, Phone: [phone] [employer] Antibody 1.1 AI 0.0-0.9 [facility] Work Phone: [phone] Thyroid Stimulating Hormone (TSH) 1.85 uIU/mL 0.358-3.74 [facility] Work Phone: [phone] Serum DNA double strand anti body assay (units/volume)on 12-27-2021 DNA double strand Ab Qn (S) [IU]/mL 0-9 [facility] Work Phone: [phone] Comment on above: Negative <5 Equivoca l 5 - 9 Positive >9 Serum IgA measurement (units /volume)on 12-27-2021 IgA Qn (S) 198 mg/dL 87-352 [facility] Work Phone: [phone] Comment on above: Performed at: [facility] [place], [place] [id number] Director: Martín Hobbs PhD, Phone: [phone] Serum Sharda-1 antibody assay (u nits/volume)on 12-27-2021 Sharda-1 extractable nuclear Ab Qn (S) <0.2 AI 0.0-0.9 [facility] Work Phone: [phone] Serum Scl-70 extractable nuc lear antibody assay (units/volume)on 12-27-2021 SCL-70 extractable nuclear Ab Qn (S) <0.2 AI 0.0-0.9 [facility] Work Phone: [phone] Serum Acuna extractable nucl ear antibody detectionon 12-27-2021 Acuna extractable nuclear Ab Ql (S) <0.2 AI 0.0-0.9 [facility] Work Phone: [phone] Serum veisy-3-whhgaeuq measu rement by electrophoresison 12-27-2021 Alpha 1 globulin Elph [Mass/Vol] 0.3 g/dL 0.0-0.4 [facility] Work Phone: [phone] Alpha 1 globulin Elph [Mass/Vol] 0.6 g/dL 0.4-1.0 [facility] Work Phone: [phone] Serum classic neutrophil cyt oplasmic antibody assay (units/volume)on 12-27-2021 Neutrophil cytoplasmic Ab.classic Qn (S) <1:20 titer Neg:<1:20 [facility] Work Phone: [phone] Serum globulin measurement ( mass/volume)on 12-27-2021 Globulin (S) [Mass/Vol] 3.1 g/dL 2.2-3.9 [facility] Work Phone: [phone] Serum or plasma IgA measurem ent (mass/volume)on 12-27-2021 IgA [Mass/Vol] 194 mg/dL 87-352 [facility] Work Phone: [phone] Serum or plasma IgG measurem ent (mass/volume)on 12-27-2021 IgG [Mass/Vol] 1080 mg/dL [phone] [facility] Work Phone: [phone] Serum or plasma IgM measurem ent (mass/volume)on 12-27-2021 IgM [Mass/Vol] 97 mg/dL 26-217 [facility] Work Phone: [phone] Serum or plasma actin IgG an tibody assay (units/volume)on 12-27-2021 Actin IgG Qn 4 Units 0-19 [facility] Work Phone: [phone] Comment on above: Negative 0 - 19 Weak positive 20 - 30 Moderate to strong positive >30 Actin Antibodies are found in 52-85% of patients with autoimmune hepatitis or chronic active hepatitis and in 22% of patients with primary biliary cirrhosis. Serum or plasma beta globuli n measurement by electrophoresis (mass/volume)on 12-27-2021 Beta globulin Elph [Mass/Vol] 1.0 g/dL 0.7-1.3 [facility] Work Phone: Serum or plasma gamma globul in measurement by electrophoresis (mass/volume)on 12-27-2021 Gamma globulin Elph [Mass/Vol] 1.1 g/dL 0.4-1.8 [facility] Work Phone: Serum or plasma immunoelectr ophoresis interpretation (nominal result)on 12-27-2021 Interpretation IEP [Interp] Comment . [facility] Work Phone: Comment on above: No monoclonality det ected. Serum perinuclear neutrophil cytoplasmic antibody titer by immunofluorescenceon 12-27-2021 Neutrophil cytoplasmic Ab.perinuclear IF (S) [Titer] <1:20 titer Neg:<1:20 [facility] Work Phone: Comment on above: The presence of posi tive fluorescence exhibiting P-ANCA orC-ANCA patterns alone is not specific for the diagnosis ofWegener's Granulomatosis (WG) or microscopic polyangiitis.Decisions about treatment should not be based solely onANCA IFA results. The [employer] Consensusrecommends follow up testing of positive sera with both FL-3 and MPO-ANCA enzyme immunoassays. As many as 5% serumsamples are positive only by EIA. Ref. AM J Clin Vnvvbu3617;111:507-513. Serum tissue transglutaminas e IgA antibody assay (units/volume)on 12-27-2021 tTG IgA Qn (S) 3 U/mL 0-3 [facility] Work Phone: Comment on above: Negative 0 - 3 Weak Positive 4 - 10 Positive >10 Tissue Transglutaminase (tTG) has been identified as the endomysial antigen. Studies have demonstr- ated that endomysial IgA antibodies have over 99% specificity for gluten sensitive enteropathy. Thin prep Papanicolaou smear with manual screeningon 12-27-2021 Thin prep Papanicolaou smear with manual screening 1.3 0.7-1.7 [facility] Work Phone: Total protein bloodon 2021 Protein [Mass/Vol] 6.9 g/dL 6.0-8.5 [facility] Work Phone: Absolute lymphocyte counton 12-26-2021 Lymphocytes Auto (Unsp spec) [#/Vol] 0.84 10*3/uL 0.83-4.51 [facility] Work Phone: Basophil percentageon 2021 Basophils/100 WBC (Bld) 0.8 % 0-1 [facility] Work Phone: Chloride [Moles/Vol] 104 mmol/L 98-107 [facility] Work Phone: Eosinophils/100 WBC (Bld) 9.7 % 0-5 [facility] Work Phone: Glucose [Mass/Vol] 93 mg/dL 74-106 [facility] Work Phone: Neutrophils (Bld) [#/Vol] 1.2 10*3/uL 2.0-7.7 [facility] Work Phone: Neutrophils/100 WBC (Bld) 45.7 % 47-70 [facility] Work Phone: Potassium [Moles/Vol] 3.9 mmol/L 3.5-5.1 [facility] Work Phone: Sodium [Moles/Vol] 138 mmol/L 136-145 [facility] Work Phone: WBC (Bld) [#/Vol] 2.6 10*3/uL 4.4-11.0 [facility] Work Phone: Blood erythrocytes count (nu mber/volume)on 12-26-2021 RBC (Bld) [#/Vol] 2.76 10*6/uL 4.2-5.4 [facility] Work Phone: Blood hemoglobin measurement (mass/volume)on 12-26-2021 Hemoglobin (Bld) [Mass/Vol] 5.4 g/dL 12.0-15.0 [facility] Work Phone: Comment on above: CRITICAL VALUE VERIF IED. CALLED TO [facility] ENAMORADO WITH DR. ARCE12/26/21 2503 Jennifer Fulton.RESULTS READ BACK BY SAME . Blood lymphocytes/100 leukoc yteson 12-26-2021 Lymphocytes/100 WBC (Bld) 32.6 % 19-41 [facility] Work Phone: [phone] Blood manual differential co mment interpretation (narrative result)on 12-26-2021 Manual differential comment Xavier (Bld) [Interp] SCANNED [facility] Work Phone: [phone] Blood monocytes/100 leukocyt eson 12-26-2021 Monocytes/100 WBC (Bld) 11.2 % 0-10 [facility] Work Phone: [phone] Blood platelet mean volumeon 12-26-2021 Platelet mean volume (Bld) [Entitic vol] 10.4 fL 6.2-12.0 [facility] Work Phone: Blood schistocytes detection by light microscopyon 12-26-2021 Schistocytes LM Ql (Bld) 1+ [facility] Work Phone: [phone] Determination of erythrocyte mean corpuscular volume (MCV)on 12-26-2021 MCV (RBC) [Entitic vol] 71.4 fL 81-99 [facility] Work Phone: [phone] Hematocrit Auto (Bld) [Volum e fraction]on 12-26-2021 Hematocrit (Bld) [Volume fraction] 19.7 % 37-47 [facility] Work Phone: [phone] Hypochromatic red blood cell detectionon 12-26-2021 Hypochromia Ql (Bld) 4+ [facility] Work Phone: [phone] Iron measurement (mass/mass) on 12-26-2021 Iron (Unsp spec) [Mass/Mass] 9 ug/dL 50-170 [facility] Work Phone: [phone] Laboratory - Chemistry and C hemistry - challengeon 12-26-2021 CO2 [Moles/Vol] 29.0 mmol/L 21.0-32.0 [facility] Work Phone: [phone] Urea nitrogen/Creatinine [Mass ratio] 25.4 mg/mg 10-20 [facility] Work Phone: [phone] Laboratory - Hematology and Cell countson 12-26-2021 Erythrocyte distribution width (RBC) [Entitic vol] 54.2 fL 35.1-43.9 [facility] Work Phone: [phone] Erythrocyte distribution width (RBC) [Ratio] 21.2 % 11.6-14.6 [facility] Work Phone: [phone] Immature granulocytes/100 WBC (Bld) 0.000 % 0.0-0.9 [facility] Work Phone: [phone] Comment on above: IG% - Immature Granu locytes (promyelocytes, myelocytes and metamyelocytes) > 1% indicates that a LEFT SHIFT is Present. MCH (RBC) [Entitic mass] 19.6 pg 27.0-32.0 [facility] Work Phone: [phone] Nucleated RBC/100 WBC (Bld) [Ratio] 0 % 0-5 [facility] Work Phone: [phone] MCHC Auto (RBC) [Mass/Vol]on 12-26-2021 MCHC (RBC) [Mass/Vol] 27.4 g/dL 32-36 [facility] Work Phone: [phone] Panel Informationon 12-26 Total Iron Binding Capacity 413 ug/dL 250-450 [facility] Work Phone: [phone] Estimated GFR (MDRD) Amer 167 mL/min >60 [facility] Work Phone: [phone] Comment on above: GFR Calc Estimated GFR (MDRD) Non-Af Amer 138 mL/min >60 [facility] Work Phone: [phone] Comment on above: Non- GFR Calc Thyroid Stimulating Hormone (TSH) 3.23 uIU/mL 0.358-3.74 [facility] Work Phone: [phone] Platelets bldon 12-26-2021 Platelets (Bld) [#/Vol] 180 10*3/uL 150-450 [facility] Work Phone: [phone] Review by pathologiston 12-03 Pathologist review Xavier (Unsp spec) [Interp] Cecile looney [facility] Work Phone: [phone] Pathologist review Xavier (Unsp spec) [Interp] Reviewed [facility] Work Phone: [phone] Comment on above: Previous reported re sult: Cecile looney Edited by: RGOOD on 12/27/21:1511Leukopenia and neutropenia. Severe Microcytic anemia.Clinical correlation necessary.Navneet Henriquez M.D. 12/27/21 AMENDED REPORT 12/27/21 1511 PATH REV previously reported as: Cecile looney Serum or plasma calcium cedric urement (mass/volume)on 12-26-2021 Calcium [Mass/Vol] 7.8 mg/dL 8.5-10.1 [facility] Work Phone: [phone] Serum or plasma creatinine m easurement (mass/volume)on 12-26-2021 Creatinine [Mass/Vol] 0.47 mg/dL 0.55-1.02 [facility] Work Phone: [phone] Comment on above: The validity of the calculated GFR & GFRAA in patients over 70 years has not been determined. Clinical correlation is essential. Serum or plasma ferritin pineda surement (mass/volume)on 12-26-2021 Ferritin [Mass/Vol] 4 ng/mL 8 [facility] Work Phone: [phone] Serum or plasma urea nitroge n measurement (mass/volume)on 12-26-2021 Urea nitrogen [Mass/Vol] 12 mg/dL 7-18 [facility] Work Phone: [phone] Thin prep Papanicolaou smear with manual screeningon 12-26-2021 Thin prep Papanicolaou smear with manual screening 2+ [facility] Work Phone: [phone] Thin prep Papanicolaou smear with manual screening 5 5-15 [facility] Work Phone: No Panel Informationon 10-25 Vitamin D 25-Hydroxy 63.1 ng/mL [facility] Work Phone: Comment on above: Vitamin D 25(OH) Sta tus Range Deficiency <20 ng/mL (50nmol/L) Insufficiency 20 - 30 ng/mL (50 - 75 nmol/L) Sufficiency 30 - 100 ng/mL (75 - 250 nmol/L) Toxicity >100 ng/mL (>250 nmol/L) Basophil percentageon 2021 Basophil percentage < 0.6 mg/dL 0.55-1.02 [facility] Work Phone: No Panel Informationon 05-15 Bedside Estimated GFR (eGFR) > 60.0000 mL/min >60 [facility] Work Phone: Bacteria identified Anaer cx Nom (Unsp spec)on 04-30-2021 Anaerobic microbial culture No anaerobic bacteria isolated. [facility] Work Phone: Bacteria identified Cx Nom ( Wound)on 04-30-2021 Wound Culture Staphylococcus warneri [facility] Work Phone: Gram stain for investigation of transfusion reactionon 04-30-2021 Microscopic observation Gram stain Nom (Unsp spec) [facility] Work Phone: NMO/[id number]-[id number] FACS Ass ay, BldOrdered By: Gi Frances on 10-09-2020 NMO/AQP4 FACS Negative Negative [facility] Comment on above: Recommend repeat gilmar ting in 6 months if clinical suspicion is high. Negative result can occur in the setting of immunosuppression. ADDITIONAL INFORMATION This test was developed and its performance characteristics determined by [facility] in a manner consistent with CLIA requirements. This test has not been cleared or approved by the U.S. Food and Drug Administration. Test Performed by: [facility] - [address] [address] Enrichment Director: Ric Lantigua M.D. Ph.D.; CLIA# [id number] [facility] MOG FACS,SOrdered By: Aileen Frances on 10-08-2020 MOG FACS, S Negative Negative [facility] Comment on above: No informative autoa ntibodies were detected in this evaluation. A negative result does not preclude a diagnosis of an inflammatory [employer]IST demyelinating disorder. ADDITIONAL INFORMATION This test was developed and its performance characteristics determined by [facility] in a manner consistent with CLIA requirements. This test has not been cleared or approved by the U.S. Food and Drug Administration. Test Performed by: [facility] [place] [address] Enrichment Director: Ric Lantigua M.D. Ph.D.; CLIA# [id number] [facility] Comprehensive metabolic 2000 panelOrdered By: Gi Frances on 10-04-2020 Albumin [Mass/Vol] 3.9 g/dL 3.2 - 5.2 g/dL [facility] ALP [Catalytic activity/Vol] 50 U/L 40 - 150 U/L [facility] ALT [Catalytic activity/Vol] 11 U/L 0 - 40 U/L [facility] Anion gap [Moles/Vol] 12 mmol/L 10 - 2 0 mmol/L [facility] AST [Catalytic activity/Vol] 17 U/L 0 - 45 U/L [facility] Bilirubin [Mass/Vol] mg/dL 0.0 - 1 .3 mg/dL [facility] Calcium [Mass/Vol] 9.2 mg/dL 8.4 - 10. 2 mg/dL [facility] Chloride [Moles/Vol] 101 mmol/L 98 - 10 8 mmol/L [facility] Creatinine [Mass/Vol] 0.42 mg/dL Low 0.60 - 1.[address] [facility] GFR/1.73 sq M.predicted CKD-EPI (S/P/Bld) [Vol rate/Area] 105 >=60 mL/min/1.73 m2 [facility] Glucose [Mass/Vol] 92 mg/dL 65 - 99 mg/dL [facility] HCO3 [Moles/Vol] 30 mmol/L 21 - 32 mmol/L [facility] Interpretation and review of laboratory results Abnormal [facility] Potassium [Moles/Vol] 4.4 mmol/L 3.5 - 5.1 mmol/L [facility] Protein [Mass/Vol] 6.0 g/dL 6.0 - 8.0 g/dL [facility] Sodium [Moles/Vol] 139 mmol/L 135 - 145 mmol/L [facility] Urea nitrogen [Mass/Vol] 9 mg/dL 8 - 25 mg/dL [facility] Urea nitrogen/Creatinine [Mass ratio] 21.4 mg/mg High [facility] The eGFR should be used for monitoring renal function only and not for medication dosing. [facility] MR CERVICAL SPINE WITH AND W [...] narrowing at multiple levels as described above. [employer] Workstation ID: [id number] Dictated by: PADMINI US on ThuOct 04, 2020 9:23:23 PM EDT Transcribed by: KAY THMOPSON on ThuOct 04, 2020 10:02:37 PM EDT Finalized by: PADMINI US on ThuOct 05, 2020 7:06:01 AM EDT Normal [facility] Comment on above: Order Comment: Must be [...] disease. No spinal stenosis. No compression fractures. [employer] Workstation ID: [id number] Dictated by: PADMINI US on ThuOct 04, 2020 9:28:23 PM EDT Transcribed by: CHRISTOPHE RENDON on ThuOct 04, 2020 10:00:36 PM EDT Finalized by: PADMINI US on ThuOct 05, 2020 7:05:53 AM EDT Normal [facility] Comment on above: Order Comment: Injur y/Trauma or Illness?:Illness/Other How long have you had these symptoms (acute/chronic)?:Unknown Reason for exam?:Radiographic monitoring of thoracic transverse myelitis Type of Exam?:Unknown Additional signs and symptoms?:Radiographic monitoring of thoracic transverse myelitis No Panel InformationOrdered By: Gi Frances on 10-04-2020 Interpretation and review of laboratory results Normal [facility] TSH DL <= 0.005 mIU/L QnOrde red By: Gi Frances on 10-04-2020 TSH Qn 2.00 m[IU]/L [facility] VITAMIN D, TOTAL, 25-OHOrder ed By: Gi Frances on 10-04-2020 25-hydroxyvitamin D [Mass/Vol] 48 ng/mL 30 - 100 ng/mL [facility] Comment on above: Vitamin D status: Deficiency: <10 ng/mL Insufficiency: 10-30 ng/mL Sufficiency: 30-100 ng/mL Toxicity: >100 ng/mL Interpretation and review of laboratory results Normal [facility] Assay performed usin g [employer] CLIA methodology. [facility] Vitamin [id number] By: Gaurang Frances on 10-04-2020 Cobalamin (Vitamin B12) [Mass/Vol] 558 pg/mL 232 - 1245 pg/mL [facility] CT COMPARISON IMPORTOrdered By: Provider System on 09-10-2020 This order has been auto-finalized and does not contain a result. [facility] MR COMPARISON IMPORTOrdered By: Provider System on 09-10-2020 This order has been auto-finalized and does not contain a result. [facility] XR COMPARISON IMPORTOrdered By: Provider System on 09-10-2020 This order has been auto-finalized and does not contain a result. [facility] Lower GI hemoglobin IA Ql (S tl) Stool Occult Blood (JULIA) Positive [facility] Work Phone: Vital Signs Date Time Vital Sign Value Performing Clinician Facility 01-16-2025 11:26-0400 Diastolic blood pressure 89 mm[Hg] Dr. Casie Trevizo MD Work Phone: [facility] 01-16-2025 11:26-0400 Systolic blood pressure 102 mm[Hg] Dr. Casie Trevizo MD Work Phone: [facility] 01-16-2025 11:04-0400 Body height 154.[address] Casie Trevizo MD Work Phone: [facility] 01-16-2025 11:04-0400 Body mass index (BMI) [Ratio] 17.9 kg/m2 Dr. Casie Trevizo MD Work Phone: [facility] 01-16-2025 11:04-0400 Body temperature 97.2 [degF] Dr. Casie Trevizo MD Work Phone: [facility] 01-16-2025 11:04-0400 Body weight 43.[address] Casie Trevizo MD Work Phone: [facility] 01-16-2025 11:04-0400 Heart rate 64 /min Dr. Casie Trevizo MD Work Phone: 7(752)458-201197 [place] [address] 01-16-2025 11:04-0400 Respiratory rate 16 /min Dr. Casie Trevizo MD Work Phone: 3(412)093-642497 [place] [address] 01-16-2025 11:04-0400 SaO2% (BldA) [Mass fraction] 100 % Dr. Casie Trevizo MD Work Phone: 6(629)653-660097 [place] [address] 10-12-2024 10:53-0400 Body mass index (BMI) [Ratio] 16.9 kg/m2 Dr. Casie Trevizo MD Work Phone: 2(057)628-975697 [place] [address] 10-12-2024 10:53-0400 Body temperature 97.6 [degF] Dr. Casie Trevizo MD Work Phone: 7(214)130-776997 [place] [address] 10-12-2024 10:53-0400 Diastolic blood pressure 86 mm[Hg] Dr. Casie Trevizo MD Work Phone: 2(932)913-583197 [place] [address] 10-12-2024 10:53-0400 Heart rate 74 /min Dr. Casie Trevizo MD Work Phone: 9(305)074-936897 [place] [address] 10-12-2024 10:53-0400 Respiratory rate 18 /min Dr. Casie Trevizo MD Work Phone: 0(812)418-515097 [place] [address] 10-12-2024 10:53-0400 Systolic blood pressure 133 mm[Hg] Dr. Casie Trevizo MD Work Phone: 0(865)525-234097 [place] [address] 10-02-2024 00:38-0400 Body weight 40.[address] Casie Trevizo MD Work Phone: 8(205)496-097197 [place] [address] 09-28-2024 11:01-0400 Body mass index (BMI) [Ratio] 16.9 kg/m2 Dr. Casie Trevizo MD Work Phone: 7(426)508-693697 [place] [address] 09-28-2024 11:01-0400 Body temperature 97.4 [degF] Dr. Casie Trevizo MD Work Phone: 3(107)876-194197 [place] [address] 09-28-2024 11:01-0400 Diastolic blood pressure 65 mm[Hg] Dr. Casie Trevizo MD Work Phone: [facility] 09-28-2024 11:01-0400 Heart rate 61 /min Dr. Casie Trevizo MD Work Phone: [facility] 09-28-2024 11:01-0400 Respiratory rate 18 /min Dr. Casie Trevizo MD Work Phone: 2(129)855-262607 [place] [address] 09-28-2024 11:01-0400 Systolic blood pressure 113 mm[Hg] Dr. Casie Trevizo MD Work Phone: 8(518)939-188607 [place] [address] 09-01-2024 00:36-0400 Body weight 40.[address] Casie Trevizo MD Work Phone: 9(341)647-918597 [place] [address] 08-31-2024 10:34-0400 Body mass index (BMI) [Ratio] 16.9 kg/m2 Dr. Casie Trevizo MD Work Phone: 9(401)979-932897 [place] [address] 08-31-2024 10:34-0400 Body temperature 97.8 [degF] Dr. Casie Trevizo MD Work Phone: 1(751)241-051743 [address] 08-31-2024 10:34-0400 Diastolic blood pressure 73 mm[Hg] Dr. Casie Trevizo MD Work Phone: 5(877)478-299007 [place] [address] 08-31-2024 10:34-0400 Heart rate 65 /min Dr. Casie Trevizo MD Work Phone: 3(805)357-027107 [place] [address] 08-31-2024 10:34-0400 Respiratory rate 18 /min Dr. Casie Trevizo MD Work Phone: 4(162)315-579407 [place] [address] 08-31-2024 10:34-0400 Systolic blood pressure 133 mm[Hg] Dr. Casie Trevizo MD Work Phone: 7(221)769-435107 [place] [address] 08-02-2024 00:45-0400 Body weight 40.[address] Casie Trevizo MD Work Phone: 9(941)202-313843 [address] 07-27-2024 08:25-0400 Body mass index (BMI) [Ratio] 16.9 kg/m2 Dr. Casie Trevizo MD Work Phone: [facility] 07-27-2024 08:25-0400 Body temperature 97.6 [degF] Dr. Casie Trevizo MD Work Phone: [facility] 07-27-2024 08:25-0400 Diastolic blood pressure 76 mm[Hg] Dr. Casie Trevizo MD Work Phone: 8(477)762-714743 [address] 07-27-2024 08:25-0400 Heart rate 74 /min Dr. Casie Trevizo MD Work Phone: 6(593)313-402707 [place] [address] 07-27-2024 08:25-0400 Respiratory rate 16 /min Dr. Casie Trevizo MD Work Phone: 0(908)386-884843 [address] 07-27-2024 08:25-0400 Systolic blood pressure 149 mm[Hg] Dr. Casie Trevizo MD Work Phone: 6(144)107-266707 [place] [address] 07-05-2024 14:34-0500 Body height 154.[address] Casie Trevizo MD Work Phone: [facility] 07-05-2024 14:34-0500 Body temperature 98.6 [degF] Dr. Casie Trevizo MD Work Phone: [facility] 07-05-2024 14:34-0500 Diastolic blood pressure 72 mm[Hg] Dr. Casie Trevizo MD Work Phone: 2(678)342-141807 [place] [address] 07-05-2024 14:34-0500 Heart rate 77 /min Dr. Casie Trevizo MD Work Phone: [facility] 07-05-2024 14:34-0500 Respiratory rate 16 /min Dr. Casie Trevizo MD Work Phone: [facility] 07-05-2024 14:34-0500 SaO2% (BldA) [Mass fraction] 94 % Dr. Casie Trevizo MD Work Phone: [facility] 07-05-2024 14:34-0500 Systolic blood pressure 127 mm[Hg] Dr. Casie Trevizo MD Work Phone: [facility] 07-02-2024 01:12-0500 Body weight 40.[address] Casie Trevizo MD Work Phone: 4(084)638-685943 [address] 06-29-2024 08:23-0500 Body mass index (BMI) [Ratio] 16.9 kg/m2 Dr. Casie Trevizo MD Work Phone: 2(975)704-800497 [place] [address] 06-29-2024 08:23-0500 Body temperature 98.1 [degF] Dr. Casie Trevizo MD Work Phone: 4(806)523-888897 [place] [address] 06-29-2024 08:23-0500 Diastolic blood pressure 78 mm[Hg] Dr. Casie Trevizo MD Work Phone: 1(177)869-978497 [place] [address] 06-29-2024 08:23-0500 Heart rate 93 /min Dr. Casie Trevizo MD Work Phone: 1(173)946-465597 [place] [address] 06-29-2024 08:23-0500 Respiratory rate 20 /min Dr. Casie Trevizo MD Work Phone: 2(944)647-893497 [place] [address] 06-29-2024 08:23-0500 Systolic blood pressure 123 mm[Hg] Dr. Casie Trevizo MD Work Phone: 9(429)372-952643 [address] 06-04-2024 01:56-0500 Body weight 40.[address] Casie Trevizo MD Work Phone: 3(966)478-152943 [address] 11-16-2023 13:30-0400 Body weight 42.[address] Casie Trevizo MD Work Phone: 4(907)027-407143 [address] 05-11-2023 11:05-0500 Diastolic blood pressure 64 mm[Hg] Dr. Casie Trevizo Work Phone: 1(593)146-701497 [place] [address] 05-11-2023 11:05-0500 Systolic blood pressure 138 mm[Hg] Dr. Casie Trevizo Work Phone: 1(088)592-912143 [address] 05-11-2023 10:34-0500 Body height 154.[address] Casie Trevizo Work Phone: [facility] 05-11-2023 10:34-0500 Body mass index (BMI) [Ratio] 17.7 kg/m2 Dr. Casie Trevizo Work Phone: [facility] 05-11-2023 10:34-0500 Body temperature 97.1 [degF] Dr. Casie Trevizo Work Phone: [facility] 05-11-2023 10:34-0500 Body weight 42.[address] Casie Trevizo Work Phone: [facility] 05-11-2023 10:34-0500 Heart rate 67 /min Dr. Casie Trevizo Work Phone: [facility] 05-11-2023 10:34-0500 Respiratory rate 16 /min Dr. Casie Trevizo Work Phone: [facility] 05-11-2023 10:34-0500 SaO2% (BldA) [Mass fraction] 98 % Dr. Casie Trevizo Work Phone: [facility] 03-23-2023 10:13-0500 Body temperature 97.8 [degF] Dr. Casie Trevizo Work Phone: [facility] 03-23-2023 10:13-0500 Diastolic blood pressure 64 mm[Hg] Dr. Casie Trevizo Work Phone: [facility] 03-23-2023 10:13-0500 Heart rate 60 /min Dr. Casie Trevizo Work Phone: [facility] 03-23-2023 10:13-0500 Respiratory rate 16 /min Dr. Casie Trevizo Work Phone: [facility] 03-23-2023 10:13-0500 SaO2% (BldA) [Mass fraction] 100 % Dr. Casie Trevizo Work Phone: [facility] 03-23-2023 10:13-0500 Systolic blood pressure 131 mm[Hg] Dr. Casie Trevizo Work Phone: [facility] 03-23-2023 08:58-0500 Body mass index (BMI) [Ratio] 18 kg/m2 Dr. Casie Trevizo Work Phone: [facility] 03-23-2023 08:58-0500 Body weight 43.[address] Casie Trevizo Work Phone: [facility] 11-17-2022 14:21-0400 Diastolic blood pressure 75 mm[Hg] Dr. Casie Trevizo Work Phone: [facility] 11-17-2022 14:21-0400 Heart rate 63 /min Dr. Casie Trevizo Work Phone: [facility] 11-17-2022 14:21-0400 Systolic blood pressure 145 mm[Hg] Dr. Casie Trevizo Work Phone: [facility] 11-17-2022 13:33-0400 Body mass index (BMI) [Ratio] 18.2 kg/m2 Dr. Casie Trevizo Work Phone: [facility] 11-17-2022 13:33-0400 Body temperature 96.9 [degF] Dr. Casie Trevizo Work Phone: [facility] 11-17-2022 13:33-0400 Respiratory rate 16 /min Dr. Casie Trevizo Work Phone: [facility] 11-17-2022 13:33-0400 SaO2% (BldA) [Mass fraction] 100 % Dr. Casie Trevizo Work Phone: [facility] 05-06-2022 10:33-0500 Body height 154.[address] Craa Arce Work Phone: [facility] 05-06-2022 10:33-0500 Body mass index (BMI) [Ratio] 18.2 kg/m2 Dr. Cara Arce Work Phone: [facility] 05-06-2022 10:33-0500 Body temperature 97.4 [degF] Dr. Cara Arce Work Phone: 4(814)260-201514 [place] [address] 05-06-2022 10:33-0500 Body weight 43.[address] Cara Arce Work Phone: 2(749)374-973714 [place] [address] 05-06-2022 10:33-0500 Diastolic blood pressure 64 mm[Hg] Dr. Cara Arce Work Phone: 3(699)009-400214 [place] [address] 05-06-2022 10:33-0500 Heart rate 65 /min Dr. Cara Arce Work Phone: 6(559)074-364914 [place] [address] 05-06-2022 10:33-0500 Respiratory rate 16 /min Dr. Cara Arce Work Phone: 2(937)954-392614 [place] [address] 05-06-2022 10:33-0500 SaO2% (BldA) [Mass fraction] 96 % Dr. Cara Arce Work Phone: 0(185)617-242614 [place] [address] 05-06-2022 10:33-0500 Systolic blood pressure 110 mm[Hg] Dr. Cara Arce Work Phone: 6(934)202-062814 [place] [address] 03-06-2022 09:32-0400 Body temperature 97.6 [degF] Dr. Cara Arce Work Phone: 0(160)936-857014 [place] [address] 03-06-2022 09:32-0400 Diastolic blood pressure 81 mm[Hg] Dr. Cara Arce Work Phone: 2(102)696-055714 [place] [address] 03-06-2022 09:32-0400 Heart rate 77 /min Dr. Cara Arce Work Phone: 0(813)674-471214 [place] [address] 03-06-2022 09:32-0400 Respiratory rate 16 /min Dr. Cara Arce Work Phone: 5(567)894-512414 [place] [address] 03-06-2022 09:32-0400 SaO2% (BldA) [Mass fraction] 100 % Dr. Cara Arce Work Phone: 4(675)713-724314 [place] [address] 03-06-2022 09:32-0400 Systolic blood pressure 128 mm[Hg] Dr. Cara Arce Work Phone: 7(391)750-079014 [place] [address] 03-06-2022 07:48-0400 Body height 154.[address] Cara Arce Work Phone: 3(308)439-265414 [place] [address] Work Phone: 03-06-2022 07:48-0400 Body mass index (BMI) [Ratio] 17.9 kg/m2 Dr. Cara Arce Work Phone: 0(963)699-472280 [address] 03-06-2022 07:48-0400 Body weight 43.[address] Cara Arce Work Phone: 3(855)889-515814 [place] [address] 02-19-2022 11:01-0400 Body height 154.[address] Cara Arce Work Phone: 9(681)001-070880 [address] Work Phone: 02-06-2022 11:29-0400 Body mass index (BMI) [Ratio] 18.5 kg/m2 Dr. Cara Arce Work Phone: 6(740)048-093514 [place] [address] 02-06-2022 11:29-0400 Body temperature 97.7 [degF] Dr. Cara Arce Work Phone: 8(862)591-572714 [place] [address] 02-06-2022 11:29-0400 Body weight 44.[address] Cara Arce Work Phone: 9(468)017-253214 [place] [address] 02-06-2022 11:29-0400 Diastolic blood pressure 74 mm[Hg] Dr. Cara Arce Work Phone: 1(870)174-720914 [place] [address] 02-06-2022 11:29-0400 Heart rate 66 /min Dr. Cara Arce Work Phone: 1(617)078-921014 [place] [address] 02-06-2022 11:29-0400 Respiratory rate 16 /min Dr. Cara Arce Work Phone: 2(303)315-958714 [place] [address] 02-06-2022 11:29-0400 SaO2% (BldA) [Mass fraction] 95 % Dr. Cara Acre Work Phone: 9(580)948-741314 [place] [address] 02-06-2022 11:29-0400 Systolic blood pressure 147 mm[Hg] Dr. Cara Arce Work Phone: 8(583)074-176614 [place] [address] 01-09-2022 15:01-0400 Body mass index (BMI) [Ratio] 18.2 kg/m2 Dr. Cara Arce Work Phone: 7(518)679-064091 [place] [address] Work Phone: 01-09-2022 15:01-0400 Body temperature 97.8 [degF] Dr. Cara Arce Work Phone: [facility] Work Phone: 01-09-2022 15:01-0400 Body weight 43.[address] Cara Arce Work Phone: [facility] Work Phone: 01-09-2022 15:01-0400 Diastolic blood pressure 64 mm[Hg] Dr. Cara Arce Work Phone: [facility] Work Phone: 01-09-2022 15:01-0400 Heart rate 68 /min Dr. Cara Arce Work Phone: [facility] Work Phone: 01-09-2022 15:01-0400 Respiratory rate 15 /min Dr. Cara Arce Work Phone: [facility] Work Phone: 01-09-2022 15:01-0400 SaO2% (BldA) [Mass fraction] 98 % Dr. Cara Arce Work Phone: [facility] Work Phone: 01-09-2022 15:01-0400 Systolic blood pressure 123 mm[Hg] Dr. Cara Arce Work Phone: [facility] Work Phone: 12-27-2021 09:14-0400 Body height 154.[address] Cara Arce Work Phone: [facility] Work Phone: 12-26-2021 19:41-0400 Body temperature 98.2 [degF] [facility] Work Phone: 12-26-2021 19:41-0400 Diastolic blood pressure 84 mm[Hg] [facility] Work Phone: 12-26-2021 19:41-0400 Heart rate 73 /min [facility] Work Phone: 12-26-2021 19:41-0400 Respiratory rate 18 /min [facility] Work Phone: 12-26-2021 19:41-0400 SaO2% (BldA) [Mass fraction] 98 % [facility] Work Phone: 12-26-2021 19:41-0400 Systolic blood pressure 160 mm[Hg] [facility] Work Phone: 12-26-2021 11:34-0400 Body height 154.94 cm [facility] Work Phone: 12-26-2021 11:34-0400 Body mass index (BMI) [Ratio] 17.7 kg/m2 [facility] Work Phone: 12-26-2021 11:34-0400 Body weight 42.63 kg [facility] Work Phone: 12-10-2021 10:23-0400 Body mass index (BMI) [Ratio] 20 kg/m2 [facility] Work Phone: 12-10-2021 10:23-0400 Body temperature 96.8 [degF] [facility] Work Phone: 12-10-2021 10:23-0400 Body weight 46.66 kg [facility] Work Phone: 12-10-2021 10:23-0400 Diastolic blood pressure 57 mm[Hg] [facility] Work Phone: 12-10-2021 10:23-0400 Heart rate 71 /min [facility] Work Phone: 12-10-2021 10:23-0400 Respiratory rate 20 /min [facility] Work Phone: 12-10-2021 10:23-0400 Systolic blood pressure 123 mm[Hg] [facility] Work Phone: 09-17-2021 11:03-0400 Body mass index (BMI) [Ratio] 21.2 kg/m2 [facility] Work Phone: 09-17-2021 11:03-0400 Body temperature 97.4 [degF] [facility] Work Phone: 09-17-2021 11:03-0400 Diastolic blood pressure 51 mm[Hg] [facility] Work Phone: 09-17-2021 11:03-0400 Heart rate 65 /min [facility] Work Phone: 09-17-2021 11:03-0400 Respiratory rate 18 /min [facility] Work Phone: 09-17-2021 11:03-0400 Systolic blood pressure 134 mm[Hg] [facility] Work Phone: 09-01-2021 00:29-0400 Body weight 54.43 kg [facility] Work Phone: 08-27-2021 11:35-0400 Body mass index (BMI) [Ratio] 21.2 kg/m2 [facility] Work Phone: 08-27-2021 11:35-0400 Body temperature 97.5 [degF] [facility] Work Phone: 08-27-2021 11:35-0400 Diastolic blood pressure 71 mm[Hg] [facility] Work Phone: 08-27-2021 11:35-0400 Heart rate 74 /min [facility] Work Phone: 08-27-2021 11:35-0400 Respiratory rate 18 /min [facility] Work Phone: 08-27-2021 11:35-0400 Systolic blood pressure 128 mm[Hg] [facility] Work Phone: 08-02-2021 00:30-0400 Body weight 54.43 kg [facility] Work Phone: 07-30-2021 11:14-0400 Body mass index (BMI) [Ratio] 21.2 kg/m2 [facility] Work Phone: 07-30-2021 11:14-0400 Body temperature 97.5 [degF] [facility] Work Phone: 07-30-2021 11:14-0400 Diastolic blood pressure 63 mm[Hg] [facility] Work Phone: 07-30-2021 11:14-0400 Heart rate 72 /min [facility] Work Phone: 07-30-2021 11:14-0400 Respiratory rate 18 /min [facility] Work Phone: 07-30-2021 11:14-0400 Systolic blood pressure 122 mm[Hg] [facility] Work Phone: 07-02-2021 00:28-0500 Body weight 54.43 kg [facility] Work Phone: 07-01-2021 23:28-0500 Body weight 54.43 kg [facility] Work Phone: 06-25-2021 10:24-0500 Body mass index (BMI) [Ratio] 21.2 kg/m2 [facility] Work Phone: 06-25-2021 10:24-0500 Body temperature 97.6 [degF] [facility] Work Phone: 06-25-2021 10:24-0500 Diastolic blood pressure 54 mm[Hg] [facility] Work Phone: 06-25-2021 10:24-0500 Heart rate 70 /min [facility] Work Phone: 06-25-2021 10:24-0500 Respiratory rate 20 /min [facility] Work Phone: 06-25-2021 10:24-0500 Systolic blood pressure 121 mm[Hg] [facility] Work Phone: 06-24-2021 13:42-0500 Body temperature 98 [degF] [facility] Work Phone: 06-24-2021 13:42-0500 Diastolic blood pressure 58 mm[Hg] [facility] Work Phone: 06-24-2021 13:42-0500 Heart rate 56 /min [facility] Work Phone: 06-24-2021 13:42-0500 Respiratory rate 16 /min [facility] Work Phone: 06-24-2021 13:42-0500 SaO2% (BldA) [Mass fraction] 99 % [facility] Work Phone: 06-24-2021 13:42-0500 Systolic blood pressure 114 mm[Hg] [facility] Work Phone: 06-24-2021 10:17-0500 Body height 152.4 cm [facility] Work Phone: 06-24-2021 10:17-0500 Body mass index (BMI) [Ratio] 20.2 kg/m2 [facility] Work Phone: 06-24-2021 10:17-0500 Body weight 47.17 kg [facility] Work Phone: 06-03-2021 23:33-0500 Body weight 54.43 kg [facility] Work Phone: 05-28-2021 10:08-0500 Body mass index (BMI) [Ratio] 21.2 kg/m2 [facility] Work Phone: 05-28-2021 10:08-0500 Body temperature 97.5 [degF] [facility] Work Phone: 05-28-2021 10:08-0500 Diastolic blood pressure 54 mm[Hg] [facility] Work Phone: 05-28-2021 10:08-0500 Heart rate 64 /min [facility] Work Phone: 05-28-2021 10:08-0500 Respiratory rate 16 /min [facility] Work Phone: 05-28-2021 10:08-0500 Systolic blood pressure 90 mm[Hg] [facility] Work Phone: 05-03-2021 23:26-0500 Body weight 54.43 kg [facility] Work Phone: 04-30-2021 10:00-0500 Body mass index (BMI) [Ratio] 21.2 kg/m2 [facility] Work Phone: 04-30-2021 10:00-0500 Body temperature 97.3 [degF] [facility] Work Phone: 04-30-2021 10:00-0500 Diastolic blood pressure 40 mm[Hg] [facility] Work Phone: 04-30-2021 10:00-0500 Heart rate 64 /min [facility] Work Phone: 04-30-2021 10:00-0500 Respiratory rate 16 /min [facility] Work Phone: 04-30-2021 10:00-0500 Systolic blood pressure 134 mm[Hg] [facility] Work Phone: 04-02-2021 23:27-0500 Body weight 54.43 kg [facility] Work Phone: 10-04-2020 13:15-0400 Body height 160 cm [facility] 10-04-2020 13:15-0400 Body mass index (BMI) [Ratio] 19.54 kg/m2 [facility] 10-04-2020 13:15-0400 Body weight 50.03 kg [facility] 10-04-2020 13:15-0400 Diastolic blood pressure 69 mm[Hg] [facility] 10-04-2020 13:15-0400 Heart rate 69 /min [facility] 10-04-2020 13:15-0400 Systolic blood pressure 147 mm[Hg] [facility] 09-10-2020 11:02-0400 Body height 160 cm [facility] 09-10-2020 11:02-0400 Body mass index (BMI) [Ratio] 19.89 kg/m2 [facility] 09-10-2020 11:02-0400 Body weight 50.94 kg [facility] 09-10-2020 11:02-0400 Diastolic blood pressure 74 mm[Hg] [facility] 09-10-2020 11:02-0400 Heart rate 62 /min [facility] 09-10-2020 11:02-0400 Systolic blood pressure 129 mm[Hg] [facility] 03-16-2020 14:10-0500 Body Temperature 97.1 [degF] Maryanne Valencia [facility] Work Phone: Comment on above: Method: Infrared aprox weight 03-16-2020 14:10-0500 Body weight 63.5 kg Maryannesusana Valencia [facility] Work Phone: Comment on above: aprox weight 03-16-2020 14:10-0500 BP Diastolic 80 mm[Hg] [facility] Work Phone: Comment on above: Patient Position: Sitting; Cuff Location : Left Arm; Cuff Size: Standard aprox weight 03-16-2020 14:10-0500 BP Systolic 122 mm[Hg] [facility] Work Phone: Comment on above: Patient Position: Sitting; Cuff Location : Left Arm; Cuff Size: Standard aprox weight 03-16-2020 14:10-0500 Pulse (Heart Rate) 66 /min Maryannesusana Valencia [facility] Work Phone: Comment on above: Pattern: Regular aprox weight 03-16-2020 14:10-0500 Pulse Oximetry 98 % Maryannephilip [facility] Work Phone: Comment on above: Room air aprox weight 03-16-2020 14:10-0500 Respiratory Rate 16 /min [facility] Work Phone: Comment on above: Pattern: Unlabored aprox weight Encounters Encounter Date Encounter Type Care Provider Facility Start: 01-16-2025 End: 01-16-2025 Admission to same day surgery center Dr. Star Corona MD [facility] Start: 01-16-2025 End: 01-16-[address] Casie Trevizo MD Work Phone: [facility] Start: 12-27-2024 End: 12-27-[address] Casie Trevizo MD Work Phone: [facility] Start: 12-27-2024 End: 12-27-[address] Ye Hoffman MD -[facility] Work Phone: Start: 12-27-2024 End: 12-27-2024 ambulatory Ye Hoffman Facility:[facility] Start: 11-11-2024 ambulatory Casie Trevizo Facility: [facility] Start: 10-12-2024 Non-patient / Non-visit Evelyn Robertson MEDICAL SALES REPRESENTATIVE-C -[facility] Start: 10-12-2024 End: 10-31-[address] Casie Trevizo MD Work Phone: [facility] Start: 10-12-2024 End: 10-31-2024 Discharged Recurring Evelyn Robertson MEDICAL SALES REPRESENTATIVE-C -[facility] [address] Work Phone: Start: 10-05-2024 Non-patient / Non-visit Evelyn Robertson MEDICAL SALES REPRESENTATIVE-C -[facility] Start: 09-28-2024 Non-patient / Non-visit Evelyn Robertson MEDICAL SALES REPRESENTATIVE-C -[facility] Start: 09-28-2024 Evelyn Robertson MEDICAL SALES REPRESENTATIVE-C -[facility] Start: 09-28-2024 End: 10-01-[address] Casie Trevizo MD Work Phone: [facility] Work Phone: Start: 09-28-2024 End: 10-01-2024 Discharged Recurring Evelyn Robertson MEDICAL SALES REPRESENTATIVE-C -[facility] [address] Work Phone: Start: 09-28-2024 End: 10-01-2024 Evelyn Robertson MEDICAL SALES REPRESENTATIVE-C [facility] Work Phone: Start: 09-21-2024 Non-patient / Non-visit Evelyn Robertson MEDICAL SALES REPRESENTATIVE-C -AHF [facility] Start: 09-21-2024 Evelyn Robertson MEDICAL SALES REPRESENTATIVE-C -A HF [facility] Start: 09-14-2024 Non-patient / Non-visit Evelyn Robertson MEDICAL SALES REPRESENTATIVE-C -AHF WC Start: 09-14-2024 Evelyn Robertson MEDICAL SALES REPRESENTATIVE-C -A HF [facility] Start: 09-07-2024 Non-patient / Non-visit Evelyn Robertson MEDICAL SALES REPRESENTATIVE-C -AHF WC Start: 09-07-2024 Evelyn Robertson MEDICAL SALES REPRESENTATIVE-C -A HF [facility] Start: 08-31-2024 Non-patient / Non-visit Evelyn Robertson MEDICAL SALES REPRESENTATIVE-C -AHF H Start: 08-31-2024 Evelyn Robertson MEDICAL SALES REPRESENTATIVE-C -A HF [facility] Start: 08-31-2024 End: 08-31-2024 ambulatory [facility] Facility:[facility] Start: 08-31-2024 End: 08-31-2024 Discharged Recurring Evelyn Robertson MEDICAL SALES REPRESENTATIVE-C -[facility] Work Phone: Start: 08-31-2024 End: 08-31-2024 Evelyn Robertson MEDICAL SALES REPRESENTATIVE-C -[facility] Work Phone: Start: 08-24-2024 Non-patient / Non-visit Evelyn Robertson MEDICAL SALES REPRESENTATIVE-C -AHF [facility] Start: 08-24-2024 Evelyn Robertson MEDICAL SALES REPRESENTATIVE-C -A HF WC Start: 08-17-2024 Non-patient / Non-visit Evelyn Robertson MEDICAL SALES REPRESENTATIVE-C -AHF WC Start: 08-17-2024 Evelyn Robertson MEDICAL SALES REPRESENTATIVE-C -A HF [facility] Start: 08-10-2024 Non-patient / Non-visit Evelyn Robertson MEDICAL SALES REPRESENTATIVE-C -AHF WC Start: 08-10-2024 Evelynasim Robertson MEDICAL SALES REPRESENTATIVE-C -A HF WC Start: 08-03-2024 Non-patient / Non-visit Evelyn Robertson MEDICAL SALES REPRESENTATIVE-C -AHF [facility] Start: 08-03-2024 Evelyn Marcelo MEDICAL SALES REPRESENTATIVE-C -A HF [facility] Start: 07-27-2024 Non-patient / Non-visit Evelyn Robertson MEDICAL SALES REPRESENTATIVE-C -AHF [facility] Start: 07-27-2024 Evelyn Robertson MEDICAL SALES REPRESENTATIVE-C -A HF [facility] Start: 07-27-2024 End: 08-01-2024 ambulatory Casie S Jolliff Facility:[facility] Start: 07-27-2024 End: 08-01-2024 Discharged Recurring Evelyn Robertson MEDICAL SALES REPRESENTATIVE-C -[facility] Work Phone: Start: 07-27-2024 End: 08-01-2024 Evelynasim BearRobertsno MEDICAL SALES REPRESENTATIVE-C -[facility] Work Phone: Start: 07-21-2024 ambulatory Casie S Jolliff Facility: [facility] Start: 07-21-2024 Registered Referred Sukumar CalderónGasper Winkler Start: 07-21-2024 Sukumar Calderón Gasper Winkler Start: 07-20-2024 End: 07-20-2024 ambulatory Casie S Jolliff [facility] Start: 07-20-2024 End: 07-20-2024 Patient encounter procedure Ally Duron MEDICAL SALES REPRESENTATIVE-C -[facility] Work Phone: Start: 07-20-2024 End: 07-20-2024 Ally Duron MEDICAL SALES REPRESENTATIVE-C -[facility] Work Phone: Start: 07-18-2024 ambulatory Aiden Bartholomew Facility:[facility] Start: 07-18-2024 Non-patient / Non-visit Dr. Aiden Bartholomew MD -[facility] Start: 07-18-2024 Dr. Aiden Bartholomew MD -[facility] Start: 07-14-2024 ambulatory Casie S Jolliff Facility: [facility] Start: 07-14-2024 Registered Referred Sukumar Winkler Start: 07-14-2024 Sukumar Calderón Gasper Winkler Start: 07-13-2024 Non-patient / Non-visit Evelyn Robertson MEDICAL SALES REPRESENTATIVE-C -AHF [facility] Start: 07-13-2024 Evelyn Robertson MEDICAL SALES REPRESENTATIVE-C -A [facility] Start: 07-12-2024 End: 07-12-[address] Casie Trevizo MD -Outpatient Bone Densitometry Work Phone: Start: 07-12-2024 End: 07-12-2024 Dr. Casie Trevizo MD -Outpatient Bone Densitometry Work Phone: Start: 07-12-2024 End: 07-12-2024 ambulatory Casie Trevizo Facility:[facility] Start: 07-07-2024 ambulatory Casie Trevizo Facility: [facility] Start: 07-07-2024 Registered Referred Sukumar Velazquez MD [facility] Start: 07-07-2024 Sukumar Velazquez MD [facility] Gasper Peterson Start: 07-06-2024 Non-patient / Non-visit Dr. Juan Carlos Barrow MD -[facility] Start: 07-06-2024 Dr. Juan Carlos Barrow MD -[facility] Start: 07-05-[address] Blanca Orlando MD -[facility] Start: 07-05-2024 End: 07-05-[address] Fransisca rOlando MD -[facility] Work Phone: Start: 07-05-2024 End: 07-05-2024 Dr. Fransisca Orlando MD -[facility] Work Phone: Start: 07-05-2024 End: 07-05-2024 ambulatory Casie Trevizo [facility] Start: 06-30-2024 ambulatory Casie Trevizo Facility: [facility] Start: 06-30-2024 Sukumar Velazquez MD [facility] L Peterson Start: 06-29-2024 Evelyn Robertson MEDICAL SALES REPRESENTATIVE-C -A [facility] Start: 06-29-2024 End: 07-01-2024 ambulatory Evelyn Robertson NP Facility:[facility] Start: 06-29-2024 End: 07-01-2024 Evelyn Robertson NP-C -[facility] Work Phone: Start: 06-23-2024 ambulatory Casie S Jolliff Facility: [facility] Start: 06-23-2024 Sukumar Calderón L - [place] Start: 06-22-2024 Evelyn Robertson NP-C -A [facility] Start: 06-16-2024 ambulatory Efewongbe Veee OLS Fa cility:[facility] Start: 06-16-2024 Sukumar Calderón L [place] Start: 06-15-2024 ambulatory Casie S Jolliff Facility: [facility] Start: 06-15-2024 Brooke COLLINS -[facility] Start: 06-14-2024 End: 06-14-2024 ambulatory Casie S Jolliff [facility] Start: 06-14-2024 End: 06-14-2024 Dr. Sukumar Velazquez MD -[facility] Work Phone: Start: 06-09-2024 ambulatory Efewongbe Oleghe OLS Fa cility:[facility] Start: 06-09-2024 Sukumar Calderón L - [place] Start: 06-08-2024 Evelyn Robertson NP-C -A [facility] Start: 06-02-2024 ambulatory Efewongbe Oleghe OLS Fa cility:[facility] Start: 06-01-2024 End: 06-03-2024 ambulatory Casie S Jolliff Facility:[facility] Start: 05-26-2024 ambulatory Efewongbe Oleghe OLS Fa cility:[facility] Start: 05-19-2024 ambulatory Efewongbe Oleghe OLS Fa cility:[facility] Start: 05-12-2024 ambulatory Efewongbe Oleghe OLS Fa cility:[facility] Start: 05-09-2024 End: 05-09-2024 Telephone encounter Jim Torres MD Work Phone: [facility] Comment on above: [employer] Start: 05-05-2024 End: 05-05-2024 Telephone encounter Jim Torres MD Work Phone: [facility] Comment on above: Results Start: 05-05-2024 End: 05-05-2024 ambulatory Christopher Wells [facility] of [facility]ious Disease Comment on above: [employer] Start: 05-03-2024 End: 05-03-2024 ambulatory Casie S Jolliff Facility:[facility] Start: 04-28-2024 ambulatory Seraongbe Veee OLS Fa cility:[facility] Start: 04-26-2024 End: 04-26-2024 ambulatory Efewongbe Oleghe Facility:[facility] Start: 04-25-2024 End: 04-25-2024 ambulatory Casie S Jolliff Facility:[facility] Start: 04-20-2024 End: 04-20-2024 ambulatory Jim Torres MD Work Phone: [facility] Comment on above: [employer] Start Start: 04-13-2024 End: 04-22-2024 Evaluation and management of inpatient GUSTABO SALDIVAR Facility:[facility] Start: 04-13-2024 End: 04-13-2024 Emergency department patient visit Nathen Ontiveros Facility:[facility] Start: 04-08-2024 ambulatory Seraongsoumya Baxtere OLS Fa cility:[facility] Start: 04-07-2024 ambulatory Casie S Jolliff Facility: [facility] Start: 04-06-2024 End: 04-06-2024 ambulatory Casie S Jolliff Facility:[facility] Start: 04-03-2024 End: 04-03-2024 ambulatory Dannie Parr Facility:[facility] Start: 03-31-2024 ambulatory Casie S Jolliff Facility: [facility] Start: 03-31-2024 End: 04-05-2024 Evaluation and management of inpatient Casie S Jolliff Facility:[facility] Start: 03-30-2024 End: 04-02-2024 ambulatory Casie S Jolliff Facility:[facility] Start: 03-30-2024 End: 03-30-2024 ambulatory Casie S Jolliff Facility:[facility] Start: 03-10-2024 ambulatory Casie S Jolliff Facility: [facility] Start: 03-03-2024 ambulatory Casie Trevizo Facility: [facility] Start: 03-03-2024 End: 03-03-2024 ambulatory Casie Trevizo Facility:[facility] Start: 06-17-2023 End: 06-17-[address] Casie Trevizo Work Phone: [facility] Work Phone: Start: 06-17-2023 End: 06-17-[address] Casie Trevizo Work Phone: [facility]-Radiology, [facility] Work Phone: Start: 05-29-2023 End: 05-29-[address] Casie Trevizo Work Phone: [facility]-Outpatient Breast Imaging Work Phone: Start: 05-11-[address] Casie navarrete Work Phone: [facility] Start: 05-11-2023 End: 05-11-[address] Casie Trevizo Work Phone: [facility] Work Phone: Start: 03-23-2023 End: 03-23-2023 Admission to same day surgery center Dr. Casie Trevizo Work Phone: [facility] Day [facility] Start: 08-11-[address] Casie Trevizo Work Phone: [facility]-Laboratory Start: 08-06-2022 End: 08-06-[address] Casie Trevizo Work Phone: [facility] Work Phone: Start: 08-06-2022 End: 08-06-[address] Casie Trevizo Work Phone: [facility]-Laboratory Start: 06-06-2022 End: 06-06-[address] Casie Trevizo Work Phone: [facility] Gastroenterology Start: 06-04-2022 End: 06-04-[address] Casie Trevizo Work Phone: [facility]-Laboratory Start: 05-23-2022 End: 05-23-[address] Cara Arce Work Phone: [facility] Work Phone: Start: 05-23-2022 End: 05-23-[address] Cara Arce Work Phone: [facility]-Outpatient Breast Imaging Start: 05-06-2022 End: 05-06-[address] Cara Arce Work Phone: [facility] Start: 05-06-[address] Cara Arce Work Phone: [facility] Oncology Start: 03-13-2022 End: 03-13-[address] Cara Arce Work Phone: [facility] Gastroenterology Start: 03-06-2022 Non-patient / Non-visit Dr. Cara Arce Work Phone: [facility] Start: 03-06-2022 End: 03-06-2022 Admission to same day surgery center Dr. Cara Arce Work Phone: [facility]-Endoscopy Start: 03-06-2022 End: 03-06-[address] Cara Arce Work Phone: [facility] Work Phone: Start: 02-19-2022 End: 02-19-[address] Cara Arce Work Phone: [facility] Work Phone: Start: 02-19-2022 End: 02-19-[address] Cara Arce Work Phone: [facility]-Outpatient Bone Densitometry Start: 02-06-2022 End: 02-06-[address] Cara Arce Work Phone: [facility] Start: 02-06-[address] Cara Arce Work Phone: [facility] Oncology Start: 01-09-2022 End: 01-09-[address] Cara Arce Work Phone: [facility] Start: 01-03-2022 End: 01-03-[address] Cara Arce Work Phone: [facility] Work Phone: Start: 01-03-2022 End: 01-03-[address] Cara Arce Work Phone: [facility] Start: 12-27-2021 End: 12-27-[address] Cara Arce Work Phone: [facility] Work Phone: Start: 12-27-2021 End: 12-27-[address] Cara Arce Work Phone: [facility]-Laboratory Start: 12-26-2021 End: 12-26-2021 Emergency department patient visit [facility]Emergency Department Start: 12-26-2021 End: 12-26-[address] Cara Arce Work Phone: [facility] Work Phone: Start: 12-26-2021 End: 12-26-2021 Patient encounter procedure [facility] Start: 12-10-2021 End: 01-01-[address] Cara Arce Work Phone: [facility] Work Phone: Start: 12-10-2021 End: 01-01-[address] [facility] Start: 12-10-2021 [facility] Start: 10-25-2021 End: 10-25-2021 Patient encounter procedure [facility] Start: 10-01-2021 End: 10-01-2021 [facility] Start: 08-27-2021 End: 08-31-2021 Discharged Recurring [facility] Start: 07-30-2021 End: 08-01-2021 Discharged Recurring [facility] Start: 06-25-2021 End: 07-01-2021 [facility] Start: 06-24-2021 End: 06-24-2021 [facility] Start: 05-28-2021 End: 06-03-2021 [facility] Start: 05-21-2021 End: 05-21-2021 Patient encounter procedure [facility]-Outpatient Breast Imaging Start: 05-15-2021 End: 05-15-2021 Patient encounter procedure [facility]-MRI - WC Start: 05-14-2021 End: 05-14-2021 Patient encounter procedure [facility]-Radiology, [place] Start: 04-30-2021 End: 05-03-2021 [facility] Start: 04-08-2021 End: 04-08-2021 ambulatory [facility] Start: 01-23-2021 Jamshid Raimres CMA [facility] Comment on above: Neuropathic pain (Pr imary Dx) Start: 10-04-2020 End: 10-08-2020 ambulatory [facility] Start: 10-04-2020 End: 10-08-2020 [facility] Start: 10-04-2020 End: 10-04-2020 Office outpatient visit 25 minutes Analilia Oconnor DO [facility] Comment on above: Transverse myelitis (HCC) (Primary Dx); Neuropathic pain; Vitamin D deficiency; Other specified disorders involving the immune mechanism, 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) Start: 10-04-2020 End: 10-05-2020 ambulatory CARA F KIRAN [facility] Start: 10-04-2020 End: 10-04-2020 Subsequent hospital visit by physician Gi Frances MD Work Phone: [facility] MRI Comment on above: Arrived Start: 09-10-2020 End: 09-11-2020 ambulatory PROVIDER NOT IN [facility] Start: 09-10-2020 End: 09-10-2020 Subsequent hospital visit by physician Provider Not In [facility] [employer] Comment on above: Arrived Start: 09-10-2020 End: 09-10-2020 Office outpatient new 60 minutes Cara Thompsonp DO Work Phone: [facility] Comment on above: Transverse myelitis (HCC) (Primary Dx); Neuropathic pain; Vitamin D deficiency Start: 07-06-2020 End: 07-06-2020 Transcribe Orders Cara Thompsonp Work Phone: [facility] Comment on above: [...] DTaP,Tdap,Td Vaccine (2 - Td or Tdap) [facility] Start: 04-14-2029 Lipid panel Lipid Screening [facility] Start: 04-17-2027 Diabetes Screening Diabetes Screening [facility] Start: 04-14-2025 Hepatitis B surface antibody level LDL Cholesterol [facility] Start: 01-16-2025 Fluoroscopic guidance [facility] Start: 01-16-2025 Patient discharge [facility] Start: 05-04-2024 Advance Directive Discussion Advance Directive Discussion [facility] Start: 01-03-2024 Covid-19 Vaccine ( season) Covid-19 Vaccine () [facility] Start: 01-03-2024 Influenza vaccination [facility] Start: 05-04-2023 Advance Directive Discussion Advance Directive Discussion [facility] Start: 03-23-2023 Anes dx/ther nerve block/injection prone pos ANESTH N BLOCK/INJ PRONE [facility] Start: 03-23-2023 Njx dx/ther agt pvrt facet jt lmbr/sac 1 level INJ PARAVERT F JNT L/S 1 [facility] Start: 03-23-2023 Njx dx/ther agt pvrt facet jt lmbr/sac 2nd level INJ PARAVERT F JNT L/S 2 [facility] Start: 03-23-2023 Patient discharge [facility] Start: 03-06-2022 Colonoscopy w/biopsy single/multiple COLONOSCOPY AND BIOPSY [facility] Start: 03-06-2022 Colsc flexible w/control bleeding any method COLONOSCOPY W/CONTROL BLEED [facility] Start: 03-06-2022 Patient discharge [facility] Start: 12-27-2021 Celiac disease screen [facility] Work Phone: Start: 12-27-2021 IgE [Units/volume] in Serum or Plasma [facility] Work Phone: Start: 12-27-2021 Serum immunofixation [facility] Work Phone: Start: 12-27-2021 [facility] Work Phone: Start: 12-27-2021 Patient referral [facility] Work Phone: Start: 12-26-2021 Administration of blood product [facility] Work Phone: Start: 06-24-2021 Anesthesia lumbar region nos ANESTH SPINE CORD SURGERY [facility] Work Phone: Start: 06-24-2021 Insj/rplcmt spi npgr dir/induxive coupling INSRT/REDO SPINE N GENERATOR [facility] Work Phone: Start: 06-24-2021 [place] impltj nstim eltrds plate/paddle edrl IMPLANT NEUROELECTRODES [facility] Work Phone: Start: 04-08-2021 End: 04-08-2021 Patient encounter procedure [facility] Start: 01-26-2021 COVID-19 Vaccine (3 - Booster for Pfizer series) COVID-19 Vaccine (3 - Booster for Pfizer series) [facility] Start: 01-02-2021 Influenza vaccination Sequential Influenza Vaccine (#1) [facility] Start: 10-11-2020 End: 09-10-2021 MRI of cervical spine MR Cervical Spine With And Without Contrast Imaging Routine Transverse myelitis (HCC) Expected: 10/11/2020, Expires: 09/10/2021 [facility] Comment on above: Expected: 10/11/2020, Expires: 2 Start: 10-11-2020 End: 09-10-2021 MRI of thoracic spine MR Thoracic Spine With And Without Contrast Imaging Routine Transverse myelitis (HCC) Expected: 10/11/2020, Expires: 09/10/2021 [facility] Comment on above: Expected: 10/11/2020, Expires: 2 Start: 10-04-2020 End: 10-04-2020 Patient encounter procedure 10/04/2020 Office Visit Neurology Elvin, Analilia Andrade, [facility] Start: 10-04-2020 End: 10-04-2020 Patient encounter procedure 10/04/2020 Appointment Radiology Gi Frances MD [address] [facility] [address] [place] [address] [phone] [facility] MRI Start: 03-16-2020 Procedure Education Eprescribed prescriptions ([id number]) [facility] Work Phone: Start: 09-14-2019 Screening for malignant neoplasm of breast Mammogram Screening [facility] Start: 09-14-2019 Screening mammography Mammogram [facility] Start: 12-01-2018 Screening for malignant neoplasm of colon [facility] Start: 09-24-2018 Screening for malignant neoplasm of breast Mammogram [facility] Start: 09-24-2018 Screening mammography Mammogram [facility] Start: 06-13-2018 Screening for malignant neoplasm of colon [facility] Start: 2016 Fall risk assessment Falls Risk Assessment [facility] Start: 2016 Pneumococcal Vaccine: Age 65+ (1 of 1 - PPSV23) Pneumococcal Vaccine: Age 65+ (1 of 1 - PPSV23) [facility] Start: 2016 Screening for osteoporosis Bone Density Screening [facility] Start: 04-25-2014 Administration of herpes zoster vaccine Zoster Vaccines (2 of 3) [facility] Start: 04-25-2014 Shingrix Vaccine (2 of 3) Shingrix Vaccine (2 of 3) [facility] Start: 2011 RSV Vaccine (1 - Risk 60-74 years 1-dose series) RSV Vaccine (1 - Risk 60-74 years 1-dose series) [facility] Start: 2001 Screening for malignant neoplasm of colon [facility] Start: 1996 Screening for malignant neoplasm of colon [facility] Start: 1969 Annual PCP Team Chronic Disease Visit Annual PCP Team Chronic Disease Visit [facility] Start: 1969 Anxiety Screening Anxiety Screening [facility] Start: 1969 BP Controlled (<130/80) BP Controlled (<130/80) [facility] Start: 1969 Hepatitis C screening Hepatitis C Screening [facility] Start: 1963 Depression screening using PHQ-9 (Patient Health Questionnaire 9) score [facility] Start: 1954 History and physical examination, annual for health maintenance Wellness Visit [facility] Start: 1951 Screening for osteoporosis Dexa Scan [facility] Start: 1951 Tetanus vaccination Tetanus: Every 10yrs [facility] Albumin [Moles/volum e] in Serum or Plasma [facility] Work Phone: Albumin/Globulin ratio [facility] Work Phone: CBC W Auto Different ial panel - Blood [facility] Work Phone: CBC W Auto Different ial panel - Blood [facility] CBC W Auto Different ial panel - Blood [facility] CBC W Auto Different ial panel - Blood [facility] CT Abdomen and Pelvis [facility] Work Phone: Electrophoresis: [id number] [facility] Work Phone: Electrophoresis: kris ma globulin [facility] Work Phone: Ferritin [Mass/volum e] in Serum or Plasma [facility] Work Phone: Ferritin [Mass/volum e] in Serum or Plasma [facility] Ferritin [Mass/volum e] in Serum or Plasma [facility] Ferritin [Mass/volum e] in Serum or Plasma [facility] Folate [Mass/volume] in Serum or Plasma [facility] Globulin measurement [facility] Work Phone: Haptoglobin [Mass/volume] in Serum or Plasma [facility] IgA [Mass/volume] in Serum or Plasma [facility] Work Phone: IgE [Units/volume] i n Serum or Plasma [facility] Work Phone: IgG [Mass/volume] in Serum or Plasma [facility] Work Phone: IgM [Mass/volume] in Serum or Plasma [facility] Work Phone: Iron [Mass/mass] in Unspecified specimen [facility] Iron and Iron bindin g capacity panel - Serum or Plasma [facility] Work Phone: Iron and Iron bindin g capacity panel - Serum or Plasma [facility] Iron and Iron bindin g capacity panel - Serum or Plasma [facility] Iron and Iron bindin g capacity panel - Serum or Plasma [facility] Lactate dehydrogenas e measurement [facility] MRI of cervical spine MR Cervica l Spine With And Without Contrast Imaging Routine Transverse myelitis (HCC) 10/04/2020 10:11 AM EDT [facility] Neutrophil cytoplasm ic Ab.classic [Units/volume] in Serum [facility] Work Phone: P-ANCA measurement [facility] Work Phone: Patient Education GI Bleeding Ca uses and Tests Anemia Iron Supplements [facility] Work Phone: Patient referral [facility] Work Phone: Protein electrophore sis panel - Serum or Plasma [facility] Work Phone: Reticulocyte count [facility] Work Phone: Reticulocyte count [facility] Reticulocyte count [facility] Serum immunofixation [facility] Serum protein electrophoresis [facility] Work Phone: Smooth muscle Ab [Presence] in [facility] Work Phone: Vitamin B12 measurement [facility] Work Phone: Vitamin B12 measurement [facility] Vitamin B12 measurement [facility] Immunizations Immunization Date Immunization Notes Care Provider Fa [facility] 03-13-2022 influenza virus vaccine, unspecified formulation Jim Torres MD Work Phone: [facility] 07-26-2020 Covid (Pfizer) [facility] 07-05-2020 Covid (Pfizer) [facility] 01-28-2017 influenza, injectabl e, quadrivalent, preservative free Dr. Casie Trevizo Work Phone: [facility] 01-28-2017 influenza, seasonal, injectable [facility] 01-23-2017 Pneumococcal Vaccine [facility] Work Phone: 01-23-2017 pneumococcal vaccine , unspecified formulation Dr. Cara Arce Work Phone: [facility] 08-08-2015 Pneumococcal Vaccine [facility] Work Phone: 08-08-2015 pneumococcal vaccine , unspecified formulation Dr. Cara Arce Work Phone: [facility] 01-02-2015 Influenza virus vaccine [facility] 10-11-2012 Pneumococcal Vaccine [facility] Work Phone: 10-11-2012 pneumococcal vaccine , unspecified formulation Dr. Cara Arce Work Phone: [facility] Payers Date Payer Category Payer Self-pay [id number] 2019 Unknown [id number] 1. [id number] 2019 Unknown [id number] 2005 Unknown 2003 Medicare [id number] 1.2 .[id number] 2003 Medicare [id number]. [id number] 2003 Medicare [id number] 1950 Unknown [id number] 2.16. 840.1.771354.3.579.2.900 1950 Unknown [id number] 2.16. 840.1.492455.3.579.2.900 1950 Unknown [id number] 2.16. 840.1.893904.3.579.2.900 1950 Unknown [id number] 2.16. 840.1.388278.3.579.2.900 1950 Unknown [id number] 2.16. 840.1.363032.3.579.2.900 1950 Unknown [id number] 2.16. 840.1.521468.3.579.2.900 1950 Unknown [id number] 2.16. 840.1.851888.3.579.2.900 1950 Unknown [id number] 2.16. 840.1.524736.3.579.2.900 1950 Unknown [id number] 2.16. 840.1.061185.3.579.2.900 Unknown [id number] Unknown [id number] 2.16.8 40.1.567268.3.579.2.462 Unknown [id number] 2.16.8 40.1.189331.3.579.2.462 Unknown [id number] 2.16.8 40.1.630622.3.579.2.462 Unknown [id number] 2.16.8 40.1.568375.3.579.2.462 Unknown [id number] 2.16.8 40.1.155414.3.579.2.462 Unknown [id number] 2.16.8 40.1.236733.3.579.2.462 Unknown [id number] 2.16.8 40.1.860031.3.579.2.462 Unknown [id number] 2.16.8 40.1.155272.3.579.2.462 Unknown [id number] 2.16.8 40.1.112755.3.579.2.462 Unknown [id number] 2.16.8 40.1.161842.3.579.2.462 Unknown [id number] 2.16.8 40.1.234165.3.579.2.462 Unknown [id number] 2.16.8 40.1.000668.3.579.2.462 Unknown [id number] 2.16.8 40.1.327322.3.579.2.462 Unknown [id number] 2.16.8 40.1.553001.3.579.2.462 Unknown [id number] 2.16.8 40.1.343137.3.579.2.462 Unknown [id number] 2.16.8 40.1.364730.3.579.2.462 Unknown [id number] 2.16.8 40.1.171477.3.579.2.462 Unknown [id number] 2.16.8 40.1.595980.3.579.2.462 Unknown [id number] 2.16.8 40.1.342011.3.579.2.462 Unknown [id number] 2.16.8 40.1.632634.3.579.2.462 Unknown [id number] 2.16.8 40.1.250939.3.579.2.462 Unknown [id number] 2.16.8 40.1.188715.3.579.2.462 Unknown [id number] 2.16.8 40.1.005023.3.579.2.462 Unknown [id number] 2.16.8 40.1.326162.3.579.2.462 Unknown [id number] 2.16.8 40.1.745436.3.579.2.462 Unknown [id number] 2.16.8 40.1.241876.3.579.2.462 Unknown [id number] 2.16.8 40.1.191176.3.579.2.462 Unknown [id number] 2.16.8 40.1.117087.3.579.2.462 Unknown [id number] 2.16.8 40.1.584385.3.579.2.462 Unknown [id number] 2.16.8 40.1.359380.3.579.2.462 Unknown [id number] 2.16.8 40.1.804056.3.579.2.462 Unknown [id number] 2.16.8 40.1.389700.3.579.2.462 Unknown [id number] 2.16.8 40.1.907787.3.579.2.462 Unknown [id number] 2.16.8 40.1.212246.3.579.2.462 Unknown [id number] 2.16.8 40.1.992658.3.579.2.462 Unknown [id number] 2.16.8 40.1.350153.3.579.2.462 Unknown [id number] 2.16.8 40.1.799942.3.579.2.462 Unknown [id number] 2.16.8 40.1.748249.3.579.2.462 Unknown [id number] 2.16.8 40.1.020491.3.579.2.462 Unknown [id number] 2.16.8 40.1.301123.3.579.2.462 Unknown [id number] 2.16.8 40.1.737832.3.579.2.462 Unknown [id number] 2.16.8 40.1.308530.3.579.2.462 Unknown [id number] 2.16.8 40.1.454002.3.579.2.462 Social History Date Type Detail Facility Tobacco smoking stat us [facility] Unknown if ever smoked [facility] Start: 1950 Sex Assigned At Not on file [facility] Exposure to SARS-CoV -2 (event) Not sure [facility] Start: 09-23-2020 End: 04-13-2024 Tobacco smoking status WAIS Never smoker [facility] Start: 07-26-2013 End: 09-23-2020 Tobacco use and exposure Never used [facility] Work Phone: Start: 09-23-2020 End: 10-20-2020 Alcohol intake Ex-drinker (finding) [facility] Start: 09-13-2020 History SDOH Alcohol Frequency 1 [facility] Start: 09-13-2020 History SDOH Alcohol Std Drinks 99 [facility] Start: 06-19-2021 End: 03-19-2023 Tobacco smoking status NHIS Unknown if ever smoked [facility] Start: 11-11-2019 None [facility] Start: 11-11-2019 Alone [facility] Start: 12-03-2019 Non-smoker [facility] Start: 1950 Sex Assigned At Female [facility] Start: 04-19-2024 Alcoholic beverage intake Curr ent non-drinker of alcohol (finding) [facility] Start: 10-10-2022 End: 04-15-2024 History of Social function [facility] Work Phone: Start: 10-10-2022 End: 04-15-2024 [facility] Utilities [facility] Work Phone: Has the [employer], [employer], or water company threatened to shut off services in your home in past 12Mo No [facility] Work Phone: (I/We) worried wheth er (my/our) food would run out before (I/we) got money to buy more. Never true [facility] In the past 12 month s, has lack of transportation kept you from medical appointments or from getting medications? No [facility] NEGATED: Highlighted row [facility] Medical Equipment Procedure Code Equipment Code Equipment [...] level controlled operating mode defined in IEC 34478-4-71 SynchroMed II pump performance has not been [...] Assessment Result Facility 01-16-2025 Cognitive function [facility] Work Phone: 03-23-2023 Cognitive function [facility] Work Phone: 11-17-2022 Cognitive function [facility] Work Phone: 03-06-2022 Cognitive function [facility] Work Phone: 12-26-2021 Cognitive function Level Of Cons ciousness Awake;Alert;Appropriate;Follow s Commands [facility] Work Phone: 02-21-2022 Cognitive function Level Of Cons ciousness Awake;Appropriate [facility] Work Phone: 06-24-2021 Cognitive function [facility] Work Phone: Clinical Notes 09-10-2020 to 01-16-2025 Note Date & Type Note Facility 01-16-2025 Procedure note [facility] 10-12-2024 Progress note Note Date/Time October 12, 2024 11:35am [facility] [address] [place] [address] Progress Note - Wound Care 10/12/24 1131 MR#: [id number] Acct: [id number] Name: ALEENA ANDREA Rep #:[id number] 12 : 1950 74 From: Evelyn Robertson NP MEDICAL SALES REPRESENTATIVE-C PCP: Dr. Casie Trevizo MD Status:REG RCR [...] It was debrided twice at [facility]. She has been following for [...] ischium. She has an adult daughter in [place] and an adult daughter here in [place] [...] Date Recorded By Document 10/05/24 11:05 RB [id number] 10/05/24 11:09 RB Document 10/12/24 10:53 RB [id number] 10/12/24 10:57 RB 10/05/24 10/12/24 11:05 10:53 WC - Today's Visit Information Type of service Follow-up Visit Follow-up Visit (Physician/TOUCH UP WORKER (Physician/TOUCH UP WORKER ) ) Arrival Mode Wheelchair Wheelchair Transfer [...] Date Recorded By Document 10/05/24 11:05 RB [id number] 10/05/24 11:09 RB Document 10/12/24 10:53 RB [id number] 10/12/24 10:57 RB 10/05/24 10/12/24 11:05 10:53 [...] Amt Large (67-100%) Medium (34-66%) -Granulation Quality [place] -Slough/Fibrin Yes Yes -Necrosis Amt Small (1-33%) [...] Amt Medium (34-66%) Medium (34-66%) -Granulation Quality [place] -Slough/Fibrin Yes Yes -Necrosis Amt Small (1-33%) [...] Amt Large (67-100%) Medium (34-66%) -Granulation Quality [place] Hyper- granulation, [place],Red -Slough/Fibrin Yes Yes -Necrosis Amt Medium (34-66%) [...] Date Recorded By Document 10/05/24 11:23 DS [id number] 10/05/24 11:31 DS Document 10/12/24 11:03 BM [id number] 10/12/24 11:08 BMF 10/05/24 10/12/24 11:23 11:03 [...] Disc -Expiration Date 05/04/29 -Product Lot Number [id number] -Percent Used 100 -Lot number of Saline Used [id number] -Bleeding Controlled with Pressure NA -Treatment Response [...] Date Recorded By Document 10/05/24 11:57 RB [id number] 10/05/24 11:59 RB Document 10/12/24 11:23 DL [id number] 10/12/24 11:25 DL 10/05/24 10/12/24 11:57 11:23 [...] Summary of Care Provided Yes Facility Type Safety And Health Manager Care Facility Orders Sent Yes Assessment/Plan [...] 1135 <Electronically signed by Evelyn Robertson NP MEDICAL SALES REPRESENTATIVE-C> Cosigner Signature (if applicable): CC: ~ Signed [facility] Work Phone: 1(420) 591-805406-11-2025 Progress note [facility] [address] [place] [address] Progress Note - Wound Care 10/12/24 1131 MR#: [id number] Acct: [id number] Name: ALEENA ANDREA Rep #:[id number] 12 : 1950 74 From: Evelyn Robertson NP MEDICAL SALES REPRESENTATIVE-C PCP: Dr. Casie Trevizo MD Status:REG RCR [...] It was debrided twice at [facility]. She has been following for [...] ischium. She has an adult daughter in [place] and an adult daughter here in [place] [...] Date Recorded By Document 10/05/24 11:05 RB [id number] 10/05/24 11:09 RB Document 10/12/24 10:53 RB [id number] 10/12/24 10:57 RB 10/05/24 10/12/24 11:05 10:53 - Today's Visit Information Type of service Follow-up Visit Follow-up Visit (Physician/TOUCH UP WORKER (Physician/TOUCH UP WORKER ) ) Arrival Mode Wheelchair Wheelchair Transfer [...] Date Recorded By Document 10/05/24 11:05 RB [id number] 10/05/24 11:09 RB Document 10/12/24 10:53 RB [id number] 10/12/24 10:57 RB 10/05/24 10/12/24 11:05 10:53 [...] Amt Large (67-100%) Medium (34-66%) -Granulation Quality [place] -Slough/Fibrin Yes Yes -Necrosis Amt Small (1-33%) [...] Amt Medium (34-66%) Medium (34-66%) -Granulation Quality [place] -Slough/Fibrin Yes Yes -Necrosis Amt Small (1-33%) [...] Amt Large (67-100%) Medium (34-66%) -Granulation Quality [place] Hyper- granulation, [place],Red -Slough/Fibrin Yes Yes -Necrosis Amt Medium (34-66%) [...] Date Recorded By Document 10/05/24 11:23 DS [id number] 10/05/24 11:31 DS Document 10/12/24 11:03 BM [id number] 10/12/24 11:08 BMF 10/05/24 10/12/24 11:23 11:03 [...] Disc -Expiration Date 05/04/29 -Product Lot Number [id number] -Percent Used 100 -Lot number of Saline Used [id number] -Bleeding Controlled with Pressure NA -Treatment Response [...] Date Recorded By Document 10/05/24 11:57 RB [id number] 10/05/24 11:59 RB Document 10/12/24 11:23 DL [id number] 10/12/24 11:25 DL 10/05/24 10/12/24 11:57 11:23 [...] Summary of Care Provided Yes Facility Type Senior Care Care Facility Orders Sent Yes Assessment/Plan Assessment/Plan [...] Cosigner Signature (if applicable): CC: ~ Signed [facility]06-04-2025 Progress note Author Evelyn Robertson [facility] Note Date/Time October 05, 2024 11:52 am [facility] [address] [place] [address] Progress Note - Wound Care 10/05/24 1147 MR#: [id number] Acct: [id number] Name: ALEENA ANDREA Rep #:[id number] 22 : 1950 74 From: Evelyn Robertson NP MEDICAL SALES REPRESENTATIVE-C PCP: Dr. Casie Trevizo MD Status:REG R [...] It was debrided twice at [facility]. She has been following for [...] ischium. She has an adult daughter in [place] and an adult daughter here in [place] whoare both very involved and supportive. Progress [...] Date Recorded By Document 10/05/24 11:05 LAURENCE [id number] 10/05/24 11:09 LAURENCE 10/05/24 11:05 - Today's Visit Information Type of service Follow-up Visit (Physician/TOUCH UP WORKER ) Arrival Mode Wheelchair Transfer Assistance Manual [...] Date Recorded By Document 10/05/24 11:05 RB [id number] 10/05/24 11:09 RB 10/05/24 11:05 Wound Center Nurse 1 19. sacral -Combined with other wound No -Current Size (cm) - Length 1 -Current Size (cm) - Width 0.6 -Current Size (cm) - Depth 0.1 -Total Square Cm 0.6 -Tunneling No -Undermining/Tunneling No -Circular Undermining No -Exudate Amt Medium -Exudate Type Serosanguineous -Wound Margin Distinct, Outline Attached -Granulation Amt Large (67-100%) -Granulation Quality [place] -Slough/Fibrin Yes -Necrosis Amt Small (1-33%) -Necrotic [...] Attached -Granulation Amt Medium (34-66%) -Granulation Quality [place] -Slough/Fibrin Yes -Necrosis Amt Small (1-33%) -Necrotic [...] Attached -Granulation Amt Large (67-100%) -Granulation Quality [place] -Slough/Fibrin Yes -Necrosis Amt Medium (34-66%) -Necrotic [...] Date Recorded By Document 10/05/24 11:23 DS [id number] 10/05/24 11:31 DS 10/05/24 11:23 Wound Center [...] Disc -Expiration Date 05/04/29 -Product Lot Number [id number] -Percent Used 100 -Lot number of Saline Used [id number] -Bleeding Controlled with Pressure -Treatment Response Procedure [...] Adaptic over top and a foam SAP Briggs dressing every day follow-up in 1 week 10/05/24 1152 <Electronically signed by Evelyn Robertson NP MEDICAL SALES REPRESENTATIVE-C> Cosigner Signature (if applicable): CC: ~ Signed [facility] Work Phone: 1(127) 851-665506-04-2025 Progress note [facility] [address] [place] [id number] Progress Note - Wound Care 10/05/24 1147 MR#: [id number] Acct: [id number] Name: ALEENA ANDREA Rep #:[id number] 22 : 1950 74 From: Evelyn Robertson NP MEDICAL SALES REPRESENTATIVE-C PCP: Dr. Casie Trevizo MD Status:REG RCR [...] It was debrided twice at [facility]. She has been following for [...] ischium. She has an adult daughter in [place] and an adult daughter here in [place] whoare both very involved and supportive. Progress [...] Date Recorded By Document 10/05/24 11:05 LAURENCE [id number] 10/05/24 11:09 LAURENCE 10/05/24 11:05 MARY - Today's Visit Information Type of service Follow-up Visit (Physician/TOUCH UP WORKER ) Arrival Mode Wheelchair Transfer Assistance Manual [...] Date Recorded By Document 10/05/24 11:05 LAURENCE [id number] 10/05/24 11:09 RB 10/05/24 11:05 Wound Center Nurse 1 19. sacral -Combined with other wound No -Current Size (cm) - Length 1 -Current Size (cm) - Width 0.6 -Current Size (cm) - Depth 0.1 -Total Square Cm 0.6 -Tunneling No -Undermining/Tunneling No -Circular Undermining No -Exudate Amt Medium -Exudate Type Serosanguineous -Wound Margin Distinct, Outline Attached -Granulation Amt Large (67-100%) -Granulation Quality [place] -Slough/Fibrin Yes -Necrosis Amt Small (1-33%) -Necrotic Tissue Type Adherent Slough -Structure Exposed N/A -Texture (Leyla-wound Skin Appearance) Assessed -Moisture (Leyla-wound Skin Appearance) Assessed -Color (Leyla-wound Skin Appearance) Assessed, Erythema -Temperature (Elyla-wound Skin No Abnormality Appearance) (Pt Warm) -Tenderness [...] Attached -Granulation Amt Medium (34-66%) -Granulation Quality [place] -Slough/Fibrin Yes -Necrosis Amt Small (1-33%) -Necrotic [...] Attached -Granulation Amt Large (67-100%) -Granulation Quality [place] -Slough/Fibrin Yes -Necrosis Amt Medium (34-66%) -Necrotic [...] Date Recorded By Document 10/05/24 11:23 DS [id number] 10/05/24 11:31 DS 10/05/24 11:23 Wound Center [...] Disc -Expiration Date 05/04/29 -Product Lot Number [id number] -Percent Used 100 -Lot number of Saline Used [id number] -Bleeding Controlled with Pressure -Treatment Response Procedure [...] Adaptic over top and a foam SAP Briggs dressing every day follow-up in 1 week 10/05/24 1152 Cosigner Signature (if applicable): CC: ~ Signed [facility]05-28-2025 Progress note Author Evelyn Robertson [facility] Note Date/Time September 28, 2024 12:38 pm [facility] [address] [place] [address] Progress Note - Wound Care 09/28/24 1225 MR#: [id number] Acct: [id number] Name: ALEENA ANDREA Rep #:[id number] 11 : 1950 74 From: Evelyn Robertson NP MEDICAL SALES REPRESENTATIVE-C PCP: Dr. Casie Trevizo MD Status:REG RCR [...] It was debrided twice at [facility]. She has been following for [...] ischium. She has an adult daughter in [place] and an adult daughter here in [place] whoare both very involved and supportive. Progress [...] Date Recorded By Document 09/07/24 10:22 DL [id number] 09/07/24 10:35 DL Document 09/14/24 10:49 RB [id number] 09/14/24 10:53 RB Document 09/21/24 10:42 DL [id number] 09/21/24 10:51 DL Document 09/28/24 11:01 RB [id number] 09/28/24 11:05 RB 09/07/24 09/14/24 09/21/24 10:22 10:49 10:42 - Today's Visit Information Type of service Follow-up Visit Follow-up Visit Follow-up Visit (Physician/TOUCH UP WORKER (Physician/TOUCH UP WORKER (Physician/TOUCH UP WORKER ) ) ) Arrival Mode Wheelchair Wheelchair [...] Visit Information Type of service Follow-up Visit (Physician/TOUCH UP WORKER ) Arrival Mode Wheelchair Transfer Assistance Manual [...] Date Recorded By Document 09/07/24 10:22 DL [id number] 09/07/24 10:35 DL Document 09/14/24 10:49 RB [id number] 09/14/24 10:53 RB Document 09/21/24 10:42 DL [id number] 09/21/24 10:51 DL Document 09/28/24 11:01 RB [id number] 09/28/24 11:05 RB 09/07/24 09/14/24 09/21/24 10:22 10:49 10:42 Wound Center Nurse 1 #17- L. Ischium -Current Size (cm) - Length 0 -Current Size (cm) - Width 0 -Current Size (cm) - Depth 0 -Total Square Cm 0 -Photo Taken Yes -Exudate Amt None Present -Wound Margin Flat & Intact -Granulation Amt Large (67-100%) -Granulation Quality [place] -Necrosis Amt None Present (0 %) -Structure [...] (34-66%) None Present (0 %) -Granulation Quality [place] -Slough/Fibrin Yes -Necrosis Amt Small (1-33%) Large [...] (34-66%) Medium (34-66%) Large (67-100%) -Granulation Quality [place] -Slough/Fibrin Yes -Necrosis Amt Medium (34-66%) Small [...] Medium (34-66%) Large (67-100%) -Granulation Quality Hyper- [place] Hyper- granulation, granulation, [place],Red -Slough/Fibrin Yes -Necrosis Amt None Present (0 [...] Attached -Granulation Amt Medium (34-66%) -Granulation Quality [place] -Slough/Fibrin Yes -Necrosis Amt Small (1-33%) -Necrotic [...] Attached -Granulation Amt Large (67-100%) -Granulation Quality [place] -Slough/Fibrin Yes -Necrosis Amt Small (1-33%) -Necrotic [...] Attached -Granulation Amt Medium (34-66%) -Granulation Quality [place] -Slough/Fibrin Yes -Necrosis Amt Medium (34-66%) -Necrotic [...] Recorded Date Recorded By Document 09/07/24 10:45 [employer] [id number] 09/07/24 10:57 [employer] Document 09/14/24 11:01 [employer] [id number] 09/14/24 11:12 [employer] Document 09/21/24 10:57 [employer] [id number] 09/21/24 11:19 [employer] Document 09/28/24 11:23 [employer] [id number] 09/28/24 11:37 BMF 09/07/24 09/14/24 09/21/24 10:45 [...] Epifix -Expiration Date 11/01/28 -Product Lot Number [id number] -Percent Used 100 -Lot number of Saline Used [id number] -Bleeding Controlled with Pressure Pressure,Silver Pressure Nitrate [...] Disc -Expiration Date 05/04/29 -Product Lot Number [id number] -Percent Used 100 -Lot number of Saline Used [id number] -Bleeding Controlled with Pressure -Treatment Response Procedure [...] Date Recorded By Document 09/07/24 11:14 DL [id number] 09/07/24 11:19 DL Document 09/14/24 11:28 DL [id number] 09/14/24 11:31 DL Document 09/21/24 11:30 MT [id number] 09/21/24 11:39 MT Document 09/28/24 12:03 RB [id number] 09/28/24 12:05 RB 09/07/24 09/14/24 09/21/24 11:14 [...] Nora Hollis. per Jessica Tsang. Facility Type Senior [facility] Det[facility] Facility Orders Sent Yes Yes Yes [...] Adaptic over top and a foam SAP Briggs dressing every day follow-up in 1 week 09/28/24 1238 <Electronically signed by Evelyn Robertson NP MEDICAL SALES REPRESENTATIVE-C> Cosigner Signature (if applicable): CC: ~ Signed [facility] Work Phone: 1(581) 716-347705-28-2025 Evaluation note* Diagnosis Onset Date Resolution Status [...] f buttock chronic October 12, 2024 10:30am [facility] Work Phone: 1(971) 177-844805-21-2025 Progress note Author Evelyn Robertson [facility] Note Date/Time September 21, 2024 12:11 pm [facility] [address] [place] [address] Progress Note - Wound Care 09/21/24 1201 MR#: [id number] Acct: [id number] Name: ALEENA ANDREA Rep #:[id number] 12 : 1950 74 From: Evelyn Robertson NP MEDICAL SALES REPRESENTATIVE-C PCP: Dr. Casie Trevizo MD Status:REG RCR [...] It was debrided twice at [facility]. She has been following for [...] ischium. She has an adult daughter in [place] and an adult daughter here in [place] whoare both very involved and supportive. Progress of Wound: Right ischium wound is healed. She developed a blister from putting a heating pad on her buttocks because she was cold. About the size of a quarter now it is flat and smooth we will apply Fibracol and Adaptic on top of it to keep it from getting infected with a foam dressing, Briggs SAP pad. The left great toe hallux [...] Date Recorded By Document 09/07/24 10:22 DL [id number] 09/07/24 10:35 DL Document 09/14/24 10:49 RB [id number] 09/14/24 10:53 RB Document 09/21/24 10:42 DL [id number] 09/21/24 10:51 DL 09/07/24 09/14/24 09/21/24 10:22 10:49 10:42 WC - Today's Visit Information Type of service Follow-up Visit Follow-up Visit Follow-up Visit (Physician/TOUCH UP WORKER (Physician/TOUCH UP WORKER (Physician/TOUCH UP WORKER ) ) ) Arrival Mode Wheelchair Wheelchair [...] Date Recorded By Document 09/07/24 10:22 DL [id number] 09/07/24 10:35 DL Document 09/14/24 10:49 RB [id number] 09/14/24 10:53 RB Document 09/21/24 10:42 DL [id number] 09/21/24 10:51 DL 09/07/24 09/14/24 09/21/24 10:22 10:49 10:42 Wound Center Nurse 1 #17- L. Ischium -Current Size (cm) - Length 0 -Current Size (cm) - Width 0 -Current Size (cm) - Depth 0 -Total Square Cm 0 -Photo Taken Yes -Exudate Amt None Present -Wound Margin Flat & Intact -Granulation Amt Large (67-100%) -Granulation Quality [place] -Necrosis Amt None Present (0 %) -Structure [...] (34-66%) None Present (0 %) -Granulation Quality [place] -Slough/Fibrin Yes -Necrosis Amt Small (1-33%) Large [...] (34-66%) Medium (34-66%) Large (67-100%) -Granulation Quality [place] -Slough/Fibrin Yes -Necrosis Amt Medium (34-66%) Small [...] Medium (34-66%) Large (67-100%) -Granulation Quality Hyper- [place] Hyper- granulation, granulation, [place],Red -Slough/Fibrin Yes -Necrosis Amt None Present (0 [...] Recorded Date Recorded By Document 09/07/24 10:45 [facility] [id number] 09/07/24 10:57 [facility] Document 09/14/24 11:01 [facility] [id number] 09/14/24 11:12 [facility] Document 09/21/24 10:57 [facility] [id number] 09/21/24 11:19 [facility] 09/07/24 09/14/24 09/21/24 10:45 11:01 10:57 [...] Epifix -Expiration Date 11/01/28 -Product Lot Number [id number] -Percent Used 100 -Lot number of Saline Used [id number] -Bleeding Controlled with Pressure Pressure,Silver Pressure Nitrate [...] Date Recorded By Document 09/07/24 11:14 DL [id number] 09/07/24 11:19 DL Document 09/14/24 11:28 DL [id number] 09/14/24 11:31 DL Document 09/21/24 11:30 MT [id number] 09/21/24 11:39 MT 09/07/24 09/14/24 09/21/24 11:14 [...] Nora Hollis. per Jessica Tsang. Facility Type Safety And Health Manager [facility] Orders Sent Yes Yes Yes [...] Adaptic over top and a foam SAP Briggs dressing every day follow-up in 1 week 09/21/24 1211 <Electronically signed by Evelyn Robertson NP MEDICAL SALES REPRESENTATIVE-C> Cosigner Signature (if applicable): CC: ~ Signed [facility] Work Phone: 1(886) 448-799505-14-2025 Progress note Author Evelyn Robertson [facility] Note Date/Time September 14, 2024 12:08 pm [facility] [address] [place] [address] Progress Note - Wound Care 09/14/24 1158 MR#: [id number] Acct: [id number] Name: ALEENA ANDREA Rep #:[id number] : 1950 74 From: Evelyn Robertson NP MEDICAL SALES REPRESENTATIVE-C PCP: Dr. Casie Trevizo MD Status:REG RCR [...] It was debrided twice at [facility]. She has been following for [...] ischium. She has an adult daughter in [place] and an adult daughter here in [place] whoare both very involved and supportive. Progress of Wound: Right ischium wound is healed. She developed a blister from putting a heating pad on her buttocks because she was cold. About the size of a quarter now it is flat and smooth we will apply Fibracol and Adaptic on top of it to keep it from getting infected with a foam dressing, Briggs SAP pad. The left great toe helix is open again and we feel it is from her laying on her stomach and she is not padding it properly and putting a shoe or a sock or a foam dressing over top of that the protected and she is opening it. We will apply fibrocal to the left helix with a Briggs SAP dressing over top seems to be [...] Date Recorded By Document 09/07/24 10:22 DL [id number] 09/07/24 10:35 DL Document 09/14/24 10:49 RB [id number] 09/14/24 10:53 RB 09/07/24 09/14/24 10:22 10:49 - Today's Visit Information Type of service Follow-up Visit Follow-up Visit (Physician/TOUCH UP WORKER (Physician/TOUCH UP WORKER ) ) Arrival Mode Wheelchair Wheelchair Transfer [...] Date Recorded By Document 09/07/24 10:22 DL [id number] 09/07/24 10:35 DL Document 09/14/24 10:49 RB [id number] 09/14/24 10:53 RB 09/07/24 09/14/24 10:22 10:49 Wound Center Nurse 1 #17- L. Ischium -Current Size (cm) - Length 0 -Current Size (cm) - Width 0 -Current Size (cm) - Depth 0 -Total Square Cm 0 -Photo Taken Yes -Exudate Amt None Present -Wound Margin Flat & Intact -Granulation Amt Large (67-100%) -Granulation Quality [place] -Necrosis Amt None Present (0 %) -Structure [...] Attached -Granulation Amt Medium (34-66%) -Granulation Quality [place] -Slough/Fibrin Yes -Necrosis Amt Small (1-33%) -Necrotic [...] Amt Medium (34-66%) Medium (34-66%) -Granulation Quality [place] -Slough/Fibrin Yes -Necrosis Amt Medium (34-66%) Small [...] Large (67-100%) Medium (34-66%) -Granulation Quality Hyper- [place] granulation, [place] -Slough/Fibrin Yes -Necrosis Amt None Present (0 [...] Recorded Date Recorded By Document 09/07/24 10:45 [facility] [id number] 09/07/24 10:57 BM Document 09/14/24 11:01 BMF [id number] 09/14/24 11:12 BMF 09/07/24 09/14/24 10:45 11:01 [...] Date Recorded By Document 09/07/24 11:14 DL [id number] 09/07/24 11:19 DL Document 09/14/24 11:28 DL [id number] 09/14/24 11:31 DL 09/07/24 09/14/24 11:14 11:28 [...] applied today per Nora Hollis. Facility Type Safety And Health Manager Care Facility Orders Sent Yes Yes [...] Adaptic over top and a foam SAP Briggs dressing every day follow-up in 1 week 09/14/24 1208 <Electronically signed by Evelyn Robertson NP MEDICAL SALES REPRESENTATIVE-C> Cosigner Signature (if applicable): CC: ~ Signed [facility] Work Phone: 1(575) 200-858205-07-2025 Progress note Author Evelyn Robertson [facility] Note Date/Time September 07, 2024 12:47p m [facility] [address] [place] [address] Progress Note - Wound Care 09/07/24 1239 MR#: [id number] Acct: [id number] Name: ALEENA ANDREA Rep #:[id number] : 1950 74 From: Evelyn Robertson NP MEDICAL SALES REPRESENTATIVE-C PCP: Dr. Casie Trevizo MD Status:REG RCR [...] It was debrided twice at [facility]. She has been following for [...] ischium. She has an adult daughter in [place] and an adult daughter here in [place] whoare both very involved and supportive. Progress [...] an ABD pad over top or a Briggs SAP pad. The left great toe helix is open again and we feel it is from her laying on her stomach and she is not padding it properly and putting a shoe or a sock or a foam dressing over top of that the protected and she is opening it. We will applyfibber call to the left helix with a Briggs SAP dressing over top right buttocks we [...] Date Recorded By Document 09/07/24 10:22 DL [id number] 09/07/24 10:35 DL 09/07/24 10:22 WC - Today's Visit Information Type of service Follow-up Visit (Physician/TOUCH UP WORKER ) Arrival Mode Wheelchair Transfer Assistance Manual [...] Date Recorded By Document 09/07/24 10:22 DL [id number] 09/07/24 10:35 DL 09/07/24 10:22 Wound Center Nurse 1 #17- L. Ischium -Current Size (cm) - Length 0 -Current Size (cm) - Width 0 -Current Size (cm) - Depth 0 -Total Square Cm 0 -Photo Taken Yes -Exudate Amt None Present -Wound Margin Flat & Intact -Granulation Amt Large (67-100%) -Granulation Quality [place] -Necrosis Amt None Present (0 %) -Structure [...] Attached -Granulation Amt Medium (34-66%) -Granulation Quality [place] -Necrosis Amt Medium (34-66%) -Necrotic Tissue Type [...] Amt Large (67-100%) -Granulation Quality Hyper- granulation, [place] -Necrosis Amt None Present (0 %) -Structure [...] Recorded Date Recorded By Document 09/07/24 10:45 [facility] [id number] 09/07/24 10:57 [facility] 09/07/24 10:45 Wound Center Nurse 2 [...] Date Recorded By Document 09/07/24 11:14 DL [id number] 09/07/24 11:19 DL 09/07/24 11:14 Wound Care [...] Status Wheelchair Transportation Private Auto Facility Type Senior Care Care Facility Orders Sent Yes Additional Wound [...] and monitor use Skin-Prep as needed 09/07/24 0397 <Electronically signed by Evelyn Robertson NP MEDICAL SALES REPRESENTATIVE-C> Cosigner Signature (if applicable): CC: ~ Signed [facility] Work Phone: 1(570) 973-425303-04-2025 Evaluation note* Diagnosis Onset Date Resolution Status [...] f buttock chronic October 12, 2024 10:30am [facility] Work Phone: 1(820) 198-130502-26-2025 Evaluation note* Diagnosis Onset Date Resolution Status [...] f buttock chronic September 28, 2024 1 0:30[facility] Work Phone: 1(411) 839-240801-06-2025 Telephone encounter Note* Telephone Encounter - Juliane Landa RN - 05/09/2024 3:50 PM EST Verbal order relayed to patient's nurse at [facility]. Juliane Landa RN [facility] Work Phone: 1(265) 240-144101-06-2025 Miscellaneous Notes* Telephone Encounter - Juliane Landa RN - 05/09/2024 3:50 PM EST Verbal order relayed to patient's nurse at [facility]. Juliane Landa RN * Telephone Encounter [...] cefazolin? Juliane Landa RN [facility] Telephone encounter Note * Telephone Encounter - Jim Torres MD - 05/09/2024 3:37 PM EST Ok to honor end date and remove picc. Thanks. Jim Torres MD [facility] Work Phone: 1([phone]) 530-763601-06-2025 Telephone encounter Note* Telephone Encounter - Juliane Landa RN - 05/09/2024 3:22 PM EST Copat stop date 05/10/24. Can stop date be honored and PICC be removed after last dose of cefazolin? Juliane Landa RN [facility]01-02-2025 History of Present illness Narrative* Christopher Wells RPh - 05/05/2024 2:51 PM ESTSummary: OPAT Management [facility] OPAT Documentation Note OPAT Pharmacist Lab [...] RPh 05/05/2024 2:51 PM documented in [facility]Green [facility]01-02-2025 NoteHNO ID: [id number] Author: CHRISTOPHER WELLS RPh Service: ? Author Type: Pharmacist Type: Progress Notes Filed: 05/05/2024 14:53 Note Text: Summary: OPAT Management [facility] OPAT Documentation Note OPAT Pharmacist Lab [...] this Encounter (in minutes): 5-10 Christopher Wells [facility] 05/05/2024 2:51 [facility]01-02-2025 Telephone encounter Note* Telephone Encounter - Juliane Landa RN - 05/05/2024 2:32 PM EST External copat lab results entered. Juliane Landa RN [facility] Work Phone: 1(554) 876-583201-02-2025 Miscellaneous Notes* Telephone Encounter - Juliane Landa RN - 05/05/2024 2:32 PM EST External copat lab results entered. Juliane Landa RN documented in [facility] encounterGreen [facility]12-20-2024 NoteHNO ID: [id number] Author: BONITA LAMBERT RN Service: Care Management Author Type: Registered Nurse Type: Care Mgt Progress Note Filed: 04/22/2024 16:15 Note Text: CARE MANAGEMENT DISCHARGE NOTE SERVICE DATE: April 22, 2024 SERVICE TIME: 4:15 PM Admission Date: 04/13/2024 LOS: 8 days Discharge Arrangement Discharge Arrangement: [facility] Was an expedited discharge program used?: No Provider Name: [place] [facility] Caregiver Assessment Caregiver is ready, willing and able to meet the patient's needs as recommended by the inter-professional team: Yes Name of Caregiver: [facility] Transportation Arrangements Transportation Arrangements: Car Handoff Communication: Handoff to: Primary Care Physician;Other Caregiver Primary Care Physician Name/Phone: summary of care to PCP, Cara Arce Other Caregiver Name/Phone: [facility] is aware of DC, RN to call report Additional Information: Patient is discharging to [facility]. Her daughter Bela to transport via private w/c van. Met with patient in room. She is aware of plan for DC and is in agreement. SIGNATURE: Bonita Lambert RN PATIENT NAME: Aleena Andrea DATE: April 22, 2024 TIME: 4:13 [facility]12-20-2024 NoteHNO ID: [id number] Author: FANI ALMODOVAR girselda Service: Pharmacy Author Type: Pharmacist Type: Plan [...] been addressed by LIP. Fani Almodovar PharmD, [facility] Pager: [phone] 04/22/2024 12:57 PM Medication List START taking [...] these medications oxyCODONE 15 mg immediate [facility]-2024 NoteHNO ID: [id number] Author: FRANCISCA SWANSON MD Service: Pain Management [...] CAD, CHF, osteoporosis, depression presented 04/13 from [place] ED for increased right hip pain and progressive wounds. CTAP from [place] showed right sided 8.5x8.3cm subcutaneous abscess extending [...] for SBO. Home pain regimen managed by [facility] includes intrathecal pump (Dilaudid, baclofen) oxycodone [...] gel (VOLTAREN) 4 g TOPICAL QID Moni oWrley MD 4 g at 04/21/24 1204 ondansetron [...] (PWD) 1 mg patient's own pump - [facility] placeholder INTRATHECAL CONTINUOUS Moni Worley [...] , Rfl: POLYETHYLENE GL (more content not included)...[facility] 04-21-2024 NoteHNO ID: [id number] Author: GUSTABO SALDIVAR MD Service: Hospital Medicine [...] pump [facility] tomorrow [facility] [place]. Signature: Gustabo Saldivar MD Date: 04/21/2024 Time: 1:36 PM [facility] PROGRESS NOTE PATIENT NAME: Aleena Andrea ADMITTED [...] amitriptyline, trazodone, tizanidine, naproxen Patient presented to [facility] from [place] ED by EMS for hip pain for 1 week with progressive wounds on R hip. CTAP from [place] showed right sided 8.5x8.3cm subcutaneous abscess extending [...] pain pump tomorrow prior to discharging to [place] to which she expressed agreement. Pertinent results today: Afebrile, HR normal, MAP 79, SpO2 99 on RA Latcher Updates Gen Surg -No plans for further [...] Status: She is a (more content not included)...[facility]12-18-2024 NoteHNO ID: [id number] Author: BONITA LAMBERT RN Service: Care Management [...] 05/10. DC plan is to return to [facility] SNF. Anticipate DC to SNF tomorrow. Patient is aware and states her daughter will be able to transport her tomorrow evening. SIGNATURE: Bonita Lambert RN PATIENT NAME: Aleena Andrea DATE: April 20, 2024 TIME: 4:17 [facility]12-18-2024 NoteHNO ID: [id number] Author: FRANCISCA SWANSON MD Service: Pain Management [...] CAD, CHF, osteoporosis, depression presented 04/13 from [place] ED for increased right hip pain and progressive wounds. CTAP from [place] showed right sided 8.5x8.3cm subcutaneous abscess extending [...] (PWD) 1 mg patient's own pump - [facility] placeholder INTRATHECAL CONTINUOUS Moni Worley [...] Rfl: , 04/14/2024 gabape (more content not included)...[facility]12-18-2024 Note HNO ID: [id number] Author: YUKO PUTNAM RN Service: PICC Team Author Type: Registered Nurse Type: Procedures Filed: 04/20/2024 09:56 Note Text: PICC NURSE INSERTION NOTE DATE OF PROCEDURE: April 20, 2024 TIME OF PROCEDURE: 0930 ORDERING PHYSICIAN: maurizio INFORMED CONSENT: Obtained per hospital policy. INDICATION FOR LINE PLACEMENT: COPAT CONDITION OF LINE PLACEMENT: Sterile PRIMARY PROCEDURALIST: Alba Huang RN OVERHEAD CRANE INSPECTOR: Yuko Hauser RN PRE-PROCEDURE REVIEW ALLERGIES Allergen [...] Hauser RN CATHETER PLACEMENT Brand: BARD Lot: [id number] Number of Lumens: 1 Type of PICC: Power Injectable PICC Lumen Size: 4 Slovak PLACEMENT TECHNIQUE Lidocaine: Yes, Lidocaine 1% Volume [...] Given to patient QUESTIONS or PROBLEMS: Call [phone] SIGNATURE: Yuko Hauser RN PATIENT NAME: Aleena Andrea DATE: April 20, 2024 TIME: 9:44 AM PAGER/CONTACT PHONE:[facility]12-18-2024 NoteHNO ID: [id number] Author: JIM TORRES MD Service: ? Author Type: Physician Type: Progress Notes Filed: 04/20/2024 08:36 Note Text: [facility] Outpatient Parenteral Antimicrobial Therapy (OPAT) Start Form Patient Info Patient MRN Patient Name Address Date of [id number] Aleena Andrea [address] [facility] [address] [facility] [id number] 1950 Start Date 04/20/2024 Physician Group Cc_kenneth [...] MD Address [address] [place], [place] [id number] Prescribing Provider's signature - electronically signed by Jim Torres MD on 04/20/24 at 8:36 AM[facility]12-18-2024 History of Present illness Narrative* Jim Torres MD - 04/20/2024 8:35 AM EST [facility] Parenteral Antimicrobial Therapy (OPAT) Start Form Patient Info Patient MRN Patient Name Address Date of [id number] Aleena Andrea [address] [facility] [address] [facility] [id number] 1950 Start Date 04/20/2024 Physician Group Lucia_kenneth [...] Treatment Course Jim Torres MD Address [address] [place] [address] Prescribing Provider's signature - electronically signed by Jim Torres MD on 04/20/24 at 8:36 AM documented in this encounterGreen Cross Hospital12-18-2024 NoteO ID: [id number] Author: GUSTABO SALDIVAR MD Service: Hospital Medicine Author Type: Resident Type: Progress Notes Filed: 04/20/2024 19:44 Note Text: Attestation signed by Gustabo Saldivar MD at 04/20/2024 7:44 PM Attending Note I personally saw and examined the patient. I reviewed the resident's note. I agree with the resident's assessment and plan unless otherwise noted. Signature: Gustabo Saldivar MD Date: 04/20/2024 Time: 7:44 PM [facility] PROGRESS NOTE PATIENT NAME: Aleena Andrea ADMITTED [...] amitriptyline, trazodone, tizanidine, naproxen Patient presented to [facility] from [place] ED by EMS for hip pain for 1 week with progressive wounds on R hip. CTAP from [place] showed right sided 8.5x8.3cm subcutaneous abscess extending [...] 8.3 -> 8 Rare s aueus -Pansensitive Latcher Updates Gen Surg - S/P OR for [...] obvious wounds or def (more content not included)...[facility]12-17-2024 NoteHNO ID: [id number] Author: FANI ALMODOVAR [facility] Service: Pharmacy Author Type: Pharmacist Type: Plan of Care Filed: 04/19/2024 15:00 Note Text: PHARMACY MEDICATION REVIEW Patient Name: Aleena Andrea : 1950 The following medications were updated within the [employer]AM [employer]EDGE [employer]AT CAPTAIN medication list: Medications ADDED to [employer] medication list Fiber one gummie - 1 daily Medications CHANGED on [employer]TAIN medication list Miralax 1 dose daily prn constipation Duloxetine 30 mg daily AM Duloxetine 60 mg daily PM APAP 325 mg - 2 qid prn pain Pain Pump Hydromorphone / baclofen Medications REMOVED from [employer] medication list Bisacodyl Amitriptyline Tizanidine Triamcinolone Baclofen tablet Additional comments: met with pt at bedside and reviewed [facility] records. The below information represents the best possible medication history: Yes Medication history completed by: Pharmacist: Fani Almodovar [facility] Source of history: Patient: Reliability of source: Appears reliable, clearly identified: Medication name, Medication dose, Medication route, Medication frequency, Timing of last dose, and Indications, Outside hospital records - Name:[place], [facility] records, Care Everywhere records, and [facility] Medication nonadherence identified: No barriers noted Reconciliation completed: Yes Completed by: IM Team All [employer] medications addressed by LIP Patient interested in Bedside Delivery Services or using OP Pharmacy at discharge? Unable to assess Preferred outpatient pharmacy: e- [facility] [place] [place] [address] - [address] - [phone] [facility] Allergies: Ziconotide Other: See Comments [...] at bedtime. Facility-Administered Medications: None Charline MontanezD, [facility] 04/19/2024[facility]12-17-2024 NoteHNO ID: [id number] Author: PATRICK SHAIKH APRN.CRNA Service: Anesthesiology Author Type: Nurse Lumber Tying Machine Operator Type: Anesthesia Procedure Notes Filed: 04/19/2024 11:12 [...] April 19, 2024 TIME: 11:11 AM CSN: [id number] Light [facility]12-17-2024 NoteHNO ID: [id number] Author: FRANCISCA SWANSON MD Service: Pain Management [...] CAD, CHF, osteoporosis, depression presented 04/13 from [place] ED for increased right hip pain and progressive wounds. CTAP from [place] showed right sided 8.5x8.3cm subcutaneous abscess extending [...] for SBO. Home pain regimen managed by [place] PM includes intrathecal pump (Dilaudid, baclofen) oxycodone [...] by mouth four times (more content not included)...[facility]12-17-2024 NoteHNO ID: [id number] Author: GUSTABO SALDIVAR MD Service: Hospital Medicine [...] of prolonged IV antibiotics. Disposition: Return to [facility] pending final surgical and ID plans. Signature: Gustabo Saldivar MD Date: 04/19/2024 Time: 5:03 PM [facility] PROGRESS NOTE PATIENT NAME: Aleena Andrea ADMITTED [...] amitriptyline, trazodone, tizanidine, naproxen Patient presented to [facility] from [place] ED by EMS for hip pain for 1 week with progressive wounds on R hip. CTAP from [place] showed right sided 8.5x8.3cm subcutaneous abscess extending [...] 94 on RA Hemoglobin 8.3 Micki cardona Latcher Updates Gen Surg IR noted reviewed, unable [...] weight. HENT: Head: [place] (more content not included)...[facility] 04-18-2024 NoteHNO ID: [id number] Author: JENNIFER JEAN MD Service: General Surgery [...] add on for OR tomorrow. Jennifer Jean [facility]12-16-2024 NoteHNO ID: [id number] Author: BONITA LAMBERT RN Service: Care Management Author Type: Registered Nurse Type: Care Mgt Progress Note Filed: 04/18/2024 14:18 Note Text: CARE MANAGEMENT PROGRESS NOTE SERVICE DATE: 04/18/2024 SERVICE TIME: 2:13 PM LOS: 4 days Post-Acute Discharge Planning Patient Goal(s): Better mobility, Increase strength, General wellness [place] of Choice Explained: [place] of Choice Given: Yes Level of Care Discussed: [facility]itentiary Facility Discharge Planning Participant(s): Patient Patient/Family Comments: Anticipated # of Days Until Discharge: 3 Transport at Discharge: Transportation Arrangements: To Be Determined Needs Prior to Discharge: Needs Prior to Discharge: To Be Determined, Discharge Transportation Post-Acute Discharge Plan: Chart reviewed. Patient continues on IV abx. Anticipate CoPAT at DC, awaiting final ID recs. DC plan is to return to [facility] SNF. Anticipate patient will need transport given unable to transfer during last PT session. SIGNATURE: Bonita Lambert RN PATIENT NAME: Aleena Andrea DATE: April 18, 2024 TIME: 2:13 [facility]12-16-2024 NoteHNO ID: [id number] Author: GUSTABO SALDIVAR MD Service: Hospital Medicine Author Type: Resident Type: Progress Notes Filed: 04/18/2024 20:02 Note Text: Attestation signed by Gustabo Saldivar MD at 04/18/2024 8:02 PM Attending Note I personally saw and examined the patient. I reviewed the resident's note. I agree with the resident's assessment and plan unless otherwise noted. 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 CTAP from [place] showed right sided 8.5x8.3cm subcutaneous abscess extending [...] reactive to light. Cardiovascular: (more content not included)...[facility] 04-17-2024 NoteHNO ID: [id number] Author: CASE PHAN MD Service: Hospital Medicine Author Type: Resident Type: Progress Notes Filed: 04/17/2024 19:40 Note Text: Attestation signed by Case Phan MD at 04/17/2024 7:40 PM [facility] ATTENDING ATTESTATION: I saw [...] for additional surgical recommendations. Case Phan MD [facility] PROGRESS NOTE PATIENT NAME: Aleena Andrea ADMITTED [...] amitriptyline, trazodone, tizanidine, naproxen Patient presented to [facility] from [place] ED by EMS for hip pain for 1 week with progressive wounds on R hip. CTAP from [place] showed right sided 8.5x8.3cm subcutaneous abscess extending [...] HB 8.0* 7.6* 8.4 (more content not included)...[facility] 04-17-2024 NoteHNO ID: [id number] Author: FRANCISCA SWANSON MD Service: Pain Management [...] CAD, CHF, osteoporosis, depression presented 04/13 from [place] ED for increased right hip pain and progressive wounds. CTAP from [place] showed right sided 8.5x8.3cm subcutaneous abscess extending [...] 90 mg b (more content not included)... [facility]12-14-2024 NoteHNO ID: [id number] Author: FRANCISCA SWANSON MD Service: Pain Management [...] CAD, CHF, osteoporosis, depression presented 04/13 from [place] ED for increased right hip pain and progressive wounds. CTAP from [place] showed right sided 8.5x8.3cm subcutaneous abscess extending [...] tab(s) 3 mg ORAL DAILY (8 PM) Enriqeu Olsen MD, MD 3 mg at 04/15/24 [...] (PWD) 1 mg patient's own pump - [facility] placeholder INTRATHECAL CONTINUOUS Enrique Olsen [...] 650 mg by m (more content not included)...[facility] [facility]12-14-2024 NoteHNO ID: [id number] Author: CASE PHAN MD Service: Hospital Medicine Author Type: Resident Type: Progress Notes Filed: 04/16/2024 21:01 Note Text: Attestation signed by Case Phan MD at 04/16/2024 9:01 PM [facility] MEDICINE SERVICE ATTENDING ATTESTATION: I saw [...] ID at this time. Case Phan MD [facility] [place]GR[place] PATIENT NAME: Aleena Andrea ADMITTED [...] amitriptyline, trazodone, tizanidine, naproxen Patient presented to [facility] from [place] ED by EMS for hip pain for 1 week with progressive wounds on R hip. CTAP from [place] showed right sided 8.5x8.3cm subcutaneous abscess extending [...] acute distress. Appearance: Norm (more content not included)...[facility] 04-16-2024 NoteHNO ID: [id number] Author: NOTE, INTERFACE, ? Service: ? Author Type: ? Type: Progress Notes Filed: 04/21/2024 16:04 Note Text: Epic Scheduled Downtime: 04/16/2024 1:00:00 AM to 04/16/2024 2:52:17 [facility]12-13-2024 NoteHNO ID: [id number] Author: BONITA LAMBERT, RN Service: Care Management [...] by: Per Department Practice Potential Transition Plans Penitentiary Facility/Intermediate Care Facility Advance Directives Current Advance Directive: Health Care Power of Navigating Officer In Chart: No Current Living Arrangements and [...] Goal(s): Better mobility, Increase strength, General wellness [place] of Choice Explained: [place] Choice Given: Yes (patient would like to return to [facility]) Level of Care Discussed: Penitentiary Facility Are you interested in bedside delivery [...] with patient in room. Patient lives at [facility] in the Independent Living. She was admitted from the SNF at [place] where she states she has been since [...] for return referral to be sent to [facility]. SIGNATURE: Bonita Lambert RN PATIENT NAME: Aleena Andrea DATE: April 15, 2024 TIME: 11:42 [facility]12-13-2024 NoteHNO ID: [id number] Author: YISEL MOSES APRN.CLIENT SOLUTIONS SPECIALIST Service: Pain Management Author Type: Nurse Specialist Type: Progress Notes Filed: 04/15/2024 11:42 Note Text: INPATIENT PAIN MANAGEMENT NOTE [facility] Aleena Andrea [id number]* Pain Management Diagnoses: Subcutaneous ischial/rectal abscess, history [...] Info per notes: The pump is a iFulfillmenttronic Synchromed II. Pump capacity is 20 cc. [...] CAD, CHF, osteoporosis, depression presented 04/13 from [place] ED for increased right hip pain and progressive wounds. CTAP from [place] showed right sided 8.5x8.3cm subcutaneous abscess extending [...] activity was identified. 04/15/2024 by Yisel Moses APRN.CLIENT SOLUTIONS SPECIALIST Overdose Risk Score from OARRS: 130 71 [...] (coronary artery disease) CHF (congestive heart failure) ([facility]) Chronic pain Depression Dysphagia Internal hemorrhoids without mention of complication Migraine, unspecified, without mention of intractable migraine without mention of status migrainosus Mononeuritis of unspecified site 07/02 Neuropathy Nonorganic sleep disorder, unspecified Nonspecific abnormal finding in stool contents Osteoporosis, unspecified Other causes of myelitis Other general symptoms(780.99) Paraplegia (HCC) PMH - PAST MEDICAL HISTORY OF transverse mylitis pos. spasticity Respiratory failure ([facility]) Rosacea Transverse myelitis ([facility]) Unspecified cause of encephalitis, myelitis, and encephalomyelitis Unspecified constipation Unspecified constipation Unspecified urinary incontinence 07/03 Incontinence PAST MEDICAL HISTORY Diagnosis Date Acute gastritis without mention of hemorrhage Anemia, unspecified CAD (coronary artery disease) CHF (congestive heart failure) ([facility]) Chronic pain Depression Dysphagia Internal hemorrhoids [...] myelitis, and encephalomyelitis Unspeci (more content not included)...[facility]12-13-2024 NoteHNO ID: [id number] Author: CASE PHAN MD Service: Hospital Medicine Author Type: Resident Type: Progress Notes Filed: 04/15/2024 21:24 Note Text: Attestation signed by Case Phan MD at 04/15/2024 9:24 PM (Updated) [facility] MEDICINE SERVICE ATTENDING ATTESTATION: I saw [...] if stooling not improving. Case Phan MD [facility] [place]GRESS NOTE PATIENT NAME: Aleena Andrea ADMITTED [...] tizanidine, naproxen Patient presented to [facility] from [place] ED by EMS for hip pain for 1 week with progressive wounds on R hip. CTAP from [place] showed right sided 8.5x8.3cm subcutaneous abscess extending [...] membranes are moist. E (more content not included)...[facility]12-12-2024 NoteHNO ID: [id number] Author: NXION MARTIN RN Service: Nursing Author Type: Registered Nurse Type: Nursing Progress Note Filed: 04/14/2024 17:12 Note Text: Leidy albarranNorthern [facility] NoteHNO ID: [id number] Author: CASE PHAN MD Service: Hospital Medicine Author Type: Resident Type: Progress Notes Filed: 04/14/2024 21:23 Note Text: Attestation signed by Case Phan MD at 04/14/2024 9:23 PM [facility] HOSPITAL MEDICINE SERVICE ATTENDING ATTESTATION: I [...] infection. Pain management consulted. Case Phan MD [facility] PROGRESS NOTE PATIENT NAME: Aleena Andrea ADMITTED [...] amitriptyline, trazodone, tizanidine, naproxen Patient presented to [facility] from [place] ED by EMS for hip pain for 1 week with progressive wounds on R hip. CTAP from [place] showed right sided 8.5x8.3cm subcutaneous abscess extending [...] per patient request Patient will follow up [place] pain management as planned; she was due [...] normal. No respirato (more content not included)... [facility]12-03-2024 [facility]11-16-2021 Miscellaneous Notes* Telephone Encounter - Suma Fishman [...] she stay at 25 mg. Call back [phone]. * Telephone Encounter - Nidia Ken CMA - 01/24/2021 1:06 PM EDT Called and spoke with Rosibel at [facility] and cancelled prescription for the amitriptyline. * Telephone Encounter - Nidia Ken CMA - 01/24/2021 12:08 PM EDT Called and spoke with pt she stated understanding on the increase with the amitriptyline. She askedfor the new prescription to be sent over to [facility] in [place] instead of the [facility]. Will que [...] advise on next steps. documented in this [id number] Miscellaneous Notes* Telephone Encounter - Gi Frances [...] she stay at 25 mg. Call back [phone]. * Telephone Encounter - Nidia Ken CMA - 01/24/2021 1:06 PM EDT Called and spoke with Rosibel at [facility] and cancelled prescription for the amitriptyline. * Telephone Encounter - Nidia Ken CMA - 01/24/2021 12:08 PM EDT Called and spoke with pt she stated understanding on the increase with the amitriptyline. She askedfor the new prescription to be sent over to [facility] in [place] instead of the [facility]. Will que [...] advise on next steps. documented in this [id number] Miscellaneous Notes* Telephone Encounter - Suma Fishman [...] she stay at 25 mg. Call back [phone]. * Telephone Encounter - Nidia Ken CMA - 01/24/2021 1:06 PM EDT [facility] * Telephone Encounter - Nidia Ken CMA - 01/24/2021 12:08 PM EDT Called and spoke with pt she stated understanding on the increase with the amitriptyline. She askedfor the new prescription to be sent over to [facility] in [place] instead of the [facility]. Will que [...] advise on next steps. documented in this [id number] Miscellaneous Notes* Telephone Encounter - Nidia Ken CMA - 01/24/2021 1:06 PM EDT Called and spoke with Rosibel at [facility] and cancelled prescription for the amitriptyline. * Telephone Encounter - Nidia Ken CMA - 01/24/2021 12:08 PM EDT Called and spoke with pt she stated understanding on the increase with the amitriptyline. She askedfor the new prescription to be sent over to [facility] in [place] instead of the [facility]. Will que [...] advise on next steps. documented in this [id number] Instructions* Patient Instructions* Analilia Oconnor DO - [...] months with Dr. Frances documented in this [id number] History of Present illness Narrative* Analilia Oconnor DO - 10/04/2020 1:17 PM EDT [facility] Clinic Follow Up [...] Date: 10/04/2020. Comparison Study Date: n/a. Study Location:[place], [place] protocol used: yes. Scanner Strength: 3T, [...] Date: 10/04/2020. Comparison Study Date: n/a. Study Location:[place], [place] protocol used: yes. Scanner Strength: 3T, [...] visit. 3. Please sign up for the [employer] patient portal. [employer] provides assess to your medical record and test results, allows you to communicate with your care providers, and allows you to complete patient questionnaires prior to each clinic visit. 4. When your testing is completed, your [place] care team will review all results and contact you if a finding requires follow up before your next visit. Otherwisee, we will discuss your test results [id number] at your next clinic visit. Many of your testing results, however, can be reviewed online through [employer]. PATIENT AND CAREGIVER EDUCATION I spent 30 [...] Neuroimmunology Fellow (PGY5) Neuroimmunology & Multiple Sclerosis [facility] Sclerosis [address], [place], [place] [email or web address] I have seen and examined patient [...] MPH System Chief Neuroimmunology & Multiple Sclerosis [facility]clerosis [place] [address] [place] [address] Rd[address], [place], [place] [email or web address] documented in this [id number] Instructions* Patient Instructions* Analilia Oconnor DO - 09/10/2020 1:27 PM EDT Aleena Andrea is a pleasant 70 y.o. Right-handed female referred for evaluation of andtreatment recommendations for Idiopathic Thoracic Transverse Myelitis. I recommend the following plan: PLAN 1. We will request initial 2001 MRI imaging and neurology records from [facility]. 2. Given persistent pain despite multiple pharmacologic [...] visit. 3. Please sign up for the [employer] patient portal. [employer] gives you controlled access to the same [employer] medical records your [facility] care team use, via browser or mobile kaya (for iOS and Android). Its allows you to review some of your testing results, and provides you with a communication link to your care providers. 4. Many of your test results can be reviewed online at any time through [employer]. Your [place] care team will review all results, but will only contact you if a finding requires urgent medical attention. Your Care team will always discuss your test results with you [id number] at your next clinic. I spent 90 [...] Neuroimmunology Fellow (PGY5) Neuroimmunology & Multiple Sclerosis [facility] Sclerosis [place] [address], [place], [place] [email or web address] documented in this [id number] History of Present illness Narrative* Analilia Oconnor DO - 09/10/2020 11:57 AM EDT [facility] [place] NEW CONSULTATION 09/10/2020 I had the pleasure of evaluating Aleena Andrea in initial outpatient neurologic consultation at [facility] [place] today, 09/10/2020. As you know, she is a pleasant 70 y.o. Right-handed female referred by Dr. Beck for evaluation of and treatment recommendations for Tr ansverse Myelitis. She is accompanied today by her friend who helped participate in her history. Inpreparation for today's consultation I have personally reviewed hard copies of neuroimaging studies, relevant clinic notes and lab tests, as well as the [facility] MS [place] new patient questionnaire. Chief Complaint: Transverse Myelitis [...] ended up going to the ED at [facility] and states that within a couple [...] (coronary artery disease), CHF (congestive heart failure) ([facility]), Depression, Idiopathic transverse myelitis (HCC), Migraine, [...] No truncal ataxia noted with sitting. Normal qermhu-cfjr-fcngla and fine finger movements without evidence of [...] 2001 MRI imaging and neurology records from [facility]. 2. Given persistent pain despite multiple pharmacologic [...] visit. 3. Please sign up for the [employer] patient portal. [employer] gives you controlled access to the same [employer] medical records your [facility] care team use, via browser or mobile kaya (for iOS and Android). Its allows you to review some of your testing results, and provides you with a communication link to your care providers. 4. Many of your test results can be reviewed online at any time through [employer]. Your [place] care team will review all results, but will only contact you if a finding requires urgent medical attention. Your Care team will always discuss your test results with you [id number] at your next clinic. I spent 90 [...] Neuroimmunology Fellow (PGY5) Neuroimmunology & Multiple Sclerosis [facility] Sclerosis [address], [place], [place] [email or web address] I have seen and examined patient [...] MPH System Chief Neuroimmunology & Multiple Sclerosis [facility] S[facility] [place] [address] [place] [address] Rd[address], [place], [place] [email or web address] documented in [facility]* Diagnosis Transverse myelitis (HCC)- Primary Other causes of myelitis Neuropathic pain Vitamin D deficiency [facility] Diagnosis Transverse myelitis (HCC) Other causes of myelitis [facility]* Diagnosis Transverse myelitis (HCC)- Primary Other causes of myelitis Neuropathic pain Vitamin D deficiency Other specified disorders involving the immune mechanism, 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) [facility]* Diagnosis Neuropathic pain- Primary [facility]* Diagnosis Neuropathic pain- Primary [facility]* Diagnosis Neuropathic pain- Primary [facility]* Diagnosis Neuropathic pain- Primary [facility]* Diagnosis Onset Date Resolution Status [...] bladder chronic Transverse myelitis chronic Urinary retention [facility] Work Phone: Evaluation note* Diagnosis Onset Date [...] bladder chronic Transverse myelitis chronic Urinary retention [facility] Work Phone: Evaluation note* Diagnosis Onset Date [...] bladder chronic Transverse myelitis chronic Urinary retention [facility] Work Phone: Evaluation note* Diagnosis Onset Date [...] chronic Transverse myelitis chronic Urinary retention chronic [facility] Work Phone: Evaluation note* Diagnosis Onset Date [...] bladder chronic Transverse myelitis chronic Urinary retention [facility] Work Phone: Evaluation note* Diagnosis Onset Date Resolution Status Anxiety and depression chron ic Chronic back pain chronic Chronic constipation chronic Neurogenic bladder chronic Paraplegia chronic Chronic back pain chronic Chronic constipation chronic Neurogenic bladder chronic Paraplegia chronic Iron (Fe) deficiency anemia acute Chronic constipation chronic GI bleed [facility] Work Phone: Evaluation note* Diagnosis Onset Date Resolution Status Anxiety and depression chron ic Chronic back pain chronic Chronic constipation chronic Neurogenic bladder chronic Paraplegia chronic Chronic back pain chronic Chronic constipation chronic Neurogenic bladder chronic Paraplegia chronic Chronic constipation chronic Iron deficiency anemia due to chronic blood loss [facility] Work Phone: Evaluation note* Diagnosis Onset Date Resolution Status Chronic back pain chronic Chronic constipation chronic Neurogenic bladder chronic Paraplegia chronic Chronic constipation chronic Iron deficiency anemia due to chronic blood loss chronic Iron deficiency anemia due to chronic blood loss [facility] Work Phone: Evaluation note* Diagnosis Onset Date Resolution Status Iron deficiency anemia due to chronic blood loss chronic Intestinal ulcer acute Chronic constipation chronic Iron deficiency anemia due to chronic blood loss [facility] Work Phone: Evaluation note* Diagnosis Onset Date Resolution Status Iron deficiency anemia due to chronic blood loss chronic Chronic constipation chronic Intestinal ulcer [facility] Work Phone: Evaluation note* Diagnosis Onset Date Resolution Status Iron deficiency anemia due to chronic blood loss [facility] Work Phone: Reason for referral (narrative)No reason for referral information availableWCleveland Clinic [facility] Work Phone: Instructions Name Dates Details [...] myelitis (HCC) Paraplegia (HCC) Cara Beck DO [address] [place] [address] Gi Frances MD [address] [place] [address] Status Reason Specialty Diagnoses / Procedures Referred By Contact Referred To Contact Authorized Radiology Diagnoses Transverse myelitis (HCC) Procedures MR Thoracic Spine With And Without Contrast Gi Frances MD [address] [place] [address] Status Reason Specialty Diagnoses / Procedures Referred By Contact Referred To Contact Authorized Radiology Diagnoses Transverse myelitis (HCC) Procedures MR Cervical Spine With And Without Contrast Gi Francse MD [address] [place] [address] Status Reason Specialty Diagnoses / Procedures Referred By Contact Referred To Contact Closed Radiology Diagnoses Transverse myelitis (HCC) Procedures MR Cervical Spine With And Without Contrast Gi Frances MD [address] [place] [address] Assessments Diagnosis Transverse myelitis (HCC)- Primary Other causes of myelitis Paraplegia (HCC) Paraplegia Advance Directives No Advanced Directives Records Found Date Activated Date Inactivated Comments 04/14/2024 5:13 AM 04/22/2024 9:56 PM Question Answer Comments Full Code Order Discussed With: Patient Documents on File Type Date Recorded 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 Advance Directives and Living Will Documents on File Type Date Recorded 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 Advance Directives and Living Will Documents on File Type Date Recorded 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 Advance Directives and Livin g Will 10/04/2020 7:42 AM Documents on File Type Date Recorded 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 Advance Directives and Livin g Will 10/04/2020 7:42 AM Advance Directive Response Recorded Date/ Time Advance Directives Yes April 12:39pm Living Will Yes June 19 9:07am Power of Navigating Officer Yes June 19, 2021 9:07am Advance Directive Response Recorded Date/ Time Advance Directives Yes April 12:39pm Living Will No December 26 11:54am Power of Navigating Officer No December 26 11:54am Advance Directive Response Recorded Date/ Time Advance Directives Yes December 27, 2021 9:14am Living Will No December 27 9:14am Power of Navigating Officer No December 27 9:14am Advance Directive Response Recorded Date/ Time Advance Directives Yes January 3:45pm Living Will No January 09 3:45pm Power of Navigating Officer No January 09, 2022 3:45pm Advance Directive Response Recorded Date/ Time Advance Directives Yes December 27, 2021 9:14am Living Will No March 03 12:22pm Power of Navigating Officer No March 03, 2022 12:22pm Advance Directive Response Recorded Date/ Time Advance Directives Yes December 27, 2021 8:14am Living Will No March 03 11:22am Power of Navigating Officer No March 03, 2022 11:22am Advance Directive Response Recorded Date/ Time Name of Medical Power of Navigating Officer MERLINE CERON March 19, 2023 9:22am Advance Directives Yes December 27, 2021 8:14am Living Will Yes November 16th, 2 023 9:22am Power of Navigating Officer Yes March 19, 2023 9:22am Date Activated Date Inactivated Comments 04/14/2024 5:13 AM Advance Directive Response Recorded Date/ Time Living Will Yes March 19, 023 10:22am Do you have a Healthcare Power of Navigating Officer? Yes March 19, 2023 10:22am Living Will Yes January 04 024 3:03pm Do you have a Healthcare Power of Navigating Officer? Yes January 05, 2024 3:03pm Living Will Yes June 04 2:56am Do you have a Healthcare Power of Navigating Officer? Yes June 04, 2024 2:56am Living Will Yes July 02, 2024 2:12am Do you have a Healthcare Power of Navigating Officer? Yes July 02, 2024 2:12am Living Will Yes August 02, 2024 12:45am Do you have a Healthcare Power of Navigating Officer? Yes August 02, 2024 12:45am Living Will Yes September 01, 2024 12 :36am Do you have a Healthcare Power of Navigating Officer? Yes September 01, 2024 12:36am Advance Directives Yes December 27, 2021 9:14am Advance Directive Response Recorded Date/ Time Living Will Yes March 19 10:22am Do you have a Healthcare Power of Navigating Officer? Yes March 19, 2023 10:22am Living Will Yes January 04 3:03pm Do you have a Healthcare Power of Navigating Officer? Yes January 05, 2024 3:03pm Living Will Yes July 02, 2024 2:12am Do you have a Healthcare Power of Navigating Officer? Yes July 02, 2024 2:12am Living Will Yes August 02, 2024 12:45am Do you have a Healthcare Power of Navigating Officer? Yes August 02, 2024 12:45am Living Will Yes September 01, 2024 12 :36am Do you have a Healthcare Power of Navigating Officer? Yes September 01, 2024 12:36am Living Will Yes October 02, 2024 1 2:38am Do you have a Healthcare Power of Navigating Officer? Yes October 02, 2024 12:38am Advance Directives Yes December 27, 2021 9:14am Advance Directive Response Recorded Date/ Time Living Will Yes September 01, 2024 12 :36am Do you have a Healthcare Power of Navigating Officer? Yes September 01, 2024 12:36am Living Will Yes October 02, 2024 1 2:38am Do you have a Healthcare Power of Navigating Officer? Yes October 02, 2024 12:38am Advance Directives [...] myelitis (HCC) Paraplegia (HCC) Kiran, Cara DavidsonDO [address] [place] [id number] Gi Frances MD [address] [place] [address] [place] [address] Status Reason Specialty Diagnoses / Procedures Referred By Contact Referred To Contact Closed Radiology Diagnoses Transverse myelitis (HCC) Procedures MR Cervical Spine With And Without Contrast Gi Frances MD [address] [place] [id number] [place] [address] Reason Onset Date Comments Medication Refill 03/18/2021 Reason Comments CoPat Start Reason Comments Results Reason Comments CoPat Management Reason Comments CoPat Stop Care Teams (unrecognized sec tion and content) Tunnel Kiln Operator Relationship Specialty Start Date End Date Kiran Cara DO [place] [address] [place] [id number] PCP - General Family Medicine 09/10/20 Tunnel Kiln Operator Relationship Specialty Start Date End Date Cara Beck DO [address] [place] [id number] PCP - General Family Medicine 09/10/20 Tunnel Kiln Operator Relationship Specialty Start Date End Date Cara Beck DO [address] [place] [id number] PCP - General Family Medicine 09/10/20 Tunnel Kiln Operator Relationship Specialty Start Date End Date Cara Beck DO [address] [place] [id number] PCP - General Family Medicine 09/10/20 Team [...] Dr. Cara Arce MD Family Provider Active [facility] Primary Care Provider A ctive Team Status: Inactive Member Role Status Dates Dr. Casie Trevizo MD Referring Provider Active Dr. Stef Ewing DO Attending Provider Active Cara PALM MD Primary Care Provider Active Team Status: Inactive Member Role Status Dates Cara PALM MD Primary Care Provider Active Dr. Stef Ewing DO Attending Provider Active Team Status: Inactive Member Role Status Dates [facility] Primary Care Provider A ctive Dr. Casie Trevizo MD Attending Provider, Referring P dominique Active Team Status: Active Member Role Status Dates [facility] Primary Care Provider A ctive Ingrid Grimaldo NP, MEDICAL SALES REPRESENTATIVE-C Attending Provider, Referrin g Provider Active Team [...] Corona MD Attending Provider, Referring Provider Active [employer]unnel [employer]n Operator Relationship Specialty Start Date End Date Cara Arce MD [address] [place] [address] PCP - General 03/06/01 Tunnel Kiln Operator Relationship Specialty Start Date End Date Cara Arce MD [address] [place] [address] PCP - General 03/06/01 Tunnel Kiln Operator Relationship Specialty Start Date End Date Cara Arce MD [address] [place] [address] PCP - General 03/06/01 Tunnel Kiln Operator Relationship Specialty Start Date End Date Cara Arce MD [address], [place] [id number] PCP - General 03/06/01 Team Status: Active Member Role Status Dates Dr. Casie Trevizo MD Primary Care Provider Active Team Status: Active Member Role Status Dates Dr. Casie Trevizo MD Primary Care Provider Active Start: June 08, 2024 Dr. Casie Trevizo MD Referring Provider Active Start: June 08, 2024 Evelyn Robertson MEDICAL SALES REPRESENTATIVE, MEDICAL SALES REPRESENTATIVE-C Attending Provider Active Start: June 08, 2024 Evelyn Robertson MEDICAL SALES REPRESENTATIVE, MEDICAL SALES REPRESENTATIVE-C Other Provider Active S tart: June 08, [...] Active Start: June 15, 2024 Evelyn Robertson MEDICAL SALES REPRESENTATIVE, MEDICAL SALES REPRESENTATIVE-C Other Provider Active S tart: June 15, 2024 Brooke Pool MEDICAL SALES REPRESENTATIVE, MEDICAL SALES REPRESENTATIVE-C Attending Provider Active Start: June 15, 2024 Brooke Pool MEDICAL SALES REPRESENTATIVE, MEDICAL SALES REPRESENTATIVE-C Referring Provider Active Start: June 15, 2024 [...] Active Start: June 22, 2024 Evelyn Robertson MEDICAL SALES REPRESENTATIVE, MEDICAL SALES REPRESENTATIVE-C Attending Provider Active Start: June 22, 2024 Evelyn Robertson MEDICAL SALES REPRESENTATIVE, MEDICAL SALES REPRESENTATIVE-C Other Provider Active S tart: June 22, [...] 2024 End: July 01, 2024 Evelyn Robertson MEDICAL SALES REPRESENTATIVE, MEDICAL SALES REPRESENTATIVE-C Attending Provider Active Start: June 29, 2024 End: July 01, 2024 Team Status: Active Member Role Status Dates Dr. Casie Trevizo MD Primary Care Provider Active Start: June 29, 2024 Dr. Casie Trevizo MD Referring Provider Active Start: June 29, 2024 Evelyn Robertson MEDICAL SALES REPRESENTATIVE, MEDICAL SALES REPRESENTATIVE-C Attending Provider Active Start: June 29, 2024 Evelyn Robertson MEDICAL SALES REPRESENTATIVE, MEDICAL SALES REPRESENTATIVE-C Other Provider Active S tart: June 29, [...] Active Start: July 06, 2024 Evelyn Robertson MEDICAL SALES REPRESENTATIVE, MEDICAL SALES REPRESENTATIVE-C Other Provider Active S tart: July 06, [...] Active Start: July 13, 2024 Evelyn Robertson MEDICAL SALES REPRESENTATIVE, MEDICAL SALES REPRESENTATIVE-C Attending Provider Active Start: July 13, 2024 Evelyn Robertson MEDICAL SALES REPRESENTATIVE, MEDICAL SALES REPRESENTATIVE-C Other Provider Active S tart: July 13, 2024 Team Status: Active Member Role Status Dates Dr. Casie Trevizo MD Primary Care Provider Active Start: July 14, 2024 Sukumar PALM MD Attending Provider Active Start: July 14, 2024 Team Status: Active Member Role Status Dates Dr. Casie Trevizo MD Primary Care Provider Active Start: July 18, 2024 Evelyn Robertson NP, MEDICAL SALES REPRESENTATIVE-C Other Provider Active S tart: July 18, 2024 Dr. Aiden Bartholomew MD Attending Provider Active Start: July 18, 2024 Dr. Aiden Bartholomew MD Referring Provider Active Start: July 18, 2024 Team Status: Inactive Member Role Status Dates Dr. Casie Trevizo MD Primary Care Provider Active Start: July 20, 2024 End: July 20, 2024 Ally Duron MEDICAL SALES REPRESENTATIVE, MEDICAL SALES REPRESENTATIVE-C Attending Provider Active Start: July 20, 2024 [...] 2024 End: August 01, 2024 Evelyn Robertson MEDICAL SALES REPRESENTATIVE, MEDICAL SALES REPRESENTATIVE-C Attending Provider Active Start: July 27, 2024 End: August 01, 2024 Team Status: Active Member Role Status Dates Dr. Casie Trevizo MD Primary Care Provider Active Start: July 27, 2024 Dr. Casie Trevizo MD Referring Provider Active Start: July 27, 2024 Evelyn Robertson MEDICAL SALES REPRESENTATIVE, MEDICAL SALES REPRESENTATIVE-C Attending Provider Active Start: July 27, 2024 Evelyn Robertson MEDICAL SALES REPRESENTATIVE, MEDICAL SALES REPRESENTATIVE-C Other Provider Active S tart: July 27, 2024 Team Status: Active Member Role Status Dates Dr. Casie Trevizo MD Primary Care Provider Active Start: August 03, 2024 Dr. Casie Trevizo MD Referring Provider Active Start: August 03, 2024 Evelyn Robertson MEDICAL SALES REPRESENTATIVE, MEDICAL SALES REPRESENTATIVE-C Attending Provider Active Start: August 03, 2024 Evelyn Robertson MEDICAL SALES REPRESENTATIVE, MEDICAL SALES REPRESENTATIVE-C Other Provider Active S tart: August 03, 2024 Team Status: Active Member Role Status Dates Dr. Casie Trevizo MD Primary Care Provider Active Start: August 10, 2024 Dr. Casie Trevizo MD Referring Provider Active Start: August 10, 2024 Evelyn Robertson MEDICAL SALES REPRESENTATIVE, MEDICAL SALES REPRESENTATIVE-C Attending Provider Active Start: August 10, 2024 Evelyn Robertson MEDICAL SALES REPRESENTATIVE, MEDICAL SALES REPRESENTATIVE-C Other Provider Active S tart: August 10, 2024 Team Status: Active Member Role Status Dates Dr. Casie Trevizo MD Primary Care Provider Active Start: August 17, 2024 Dr. Casie Trevizo MD Referring Provider Active Start: August 17, 2024 Evelyn Robertson MEDICAL SALES REPRESENTATIVE, MEDICAL SALES REPRESENTATIVE-C Attending Provider Active Start: August 17, 2024 Evelyn Robertson MEDICAL SALES REPRESENTATIVE, MEDICAL SALES REPRESENTATIVE-C Other Provider Active S tart: August 17, 2024 Team Status: Active Member Role Status Dates Dr. Casie Trevizo MD Primary Care Provider Active Start: August 24, 2024 Dr. Casie Trevizo MD Referring Provider Active Start: August 24, 2024 Evelyn Robertson MEDICAL SALES REPRESENTATIVE, MEDICAL SALES REPRESENTATIVE-C Attending Provider Active Start: August 24, 2024 Evelyn Robertson MEDICAL SALES REPRESENTATIVE, MEDICAL SALES REPRESENTATIVE-C Other Provider Active S tart: August 24, 2024 Team Status: Inactive Member Role Status Dates Dr. Casie Trevizo MD Primary Care Provider Active Start: August 31, 2024 End: August 31, 2024 Dr. Casie Trevizo MD Referring Provider Active Start: August 31, 2024 End: August 31, 2024 Evelyn Robertson MEDICAL SALES REPRESENTATIVE, MEDICAL SALES REPRESENTATIVE-C Attending Provider Active Start: August 31, 2024 End: August 31, 2024 Team Status: Active Member Role Status Dates Dr. Casie Trevizo MD Primary Care Provider Active Start: August 31, 2024 Dr. Casie Trevizo MD Referring Provider Active Start: August 31, 2024 Evelyn Robertson MEDICAL SALES REPRESENTATIVE, MEDICAL SALES REPRESENTATIVE-C Attending Provider Active Start: August 31, 2024 Evelyn Robertson MEDICAL SALES REPRESENTATIVE, MEDICAL SALES REPRESENTATIVE-C Other Provider Active S tart: August 31, 2024 Team Status: Active Member Role Status Dates Dr. Casie Trevizo MD Primary Care Provider Active Start: September 07, 2024 Dr. Casie Trevizo MD Referring Provider Active Start: September 07, 2024 Evelyn Robertson MEDICAL SALES REPRESENTATIVE, MEDICAL SALES REPRESENTATIVE-C Attending Provider Active Start: September 07, 2024 Evelyn Robertson MEDICAL SALES REPRESENTATIVE, MEDICAL SALES REPRESENTATIVE-C Other Provider Active S tart: September 07, 2024 Team Status: Active Member Role Status Dates Dr. Casie Trevizo MD Primary Care Provider Active Start: September 14, 2024 Dr. Casie Trevizo MD Referring Provider Active Start: September 14, 2024 Evelyn Robertson MEDICAL SALES REPRESENTATIVE, MEDICAL SALES REPRESENTATIVE-C Attending Provider Active Start: September 14, 2024 Evelyn Robertson MEDICAL SALES REPRESENTATIVE, MEDICAL SALES REPRESENTATIVE-C Other Provider Active S tart: September 14, 2024 Team Status: Active Member Role Status Dates Dr. Casie Trevizo MD Primary Care Provider Active Start: September 21, 2024 Dr. Casie Trevizo MD Referring Provider Active Start: September 21, 2024 Evelyn Robertson MEDICAL SALES REPRESENTATIVE, MEDICAL SALES REPRESENTATIVE-C Attending Provider Active Start: September 21, 2024 Evelyn Robertson MEDICAL SALES REPRESENTATIVE, MEDICAL SALES REPRESENTATIVE-C Other Provider Active S tart: September 21, 2024 Team Status: Inactive Member Role Status Dates Dr. Casie Trevizo MD Primary Care Provider Active Start: September 28, 2024 End: October 01, 2024 Dr. Casie Trevizo MD Referring Provider Active Start: September 28, 2024 End: October 01, 2024 Evelyn Robertson MEDICAL SALES REPRESENTATIVE, MEDICAL SALES REPRESENTATIVE-C Attending Provider Active Start: September 28, 2024 End: October 01, 2024 Team Status: Active Member Role Status Dates Dr. Casie Trevizo MD Primary Care Provider Active Start: September 28, 2024 Dr. Casie Trevizo MD Referring Provider Active Start: September 28, 2024 Evelyn Robertson MEDICAL SALES REPRESENTATIVE, MEDICAL SALES REPRESENTATIVE-C Attending Provider Active Start: September 28, 2024 Evelyn Robertson MEDICAL SALES REPRESENTATIVE, MEDICAL SALES REPRESENTATIVE-C Other Provider Active S tart: September 28, [...] Status: Active Member Role/Relationship Status Dates Dr. Fransisca Orlando MD Attending [...] Active Start: July 06, 2024 Evelyn Robertson MEDICAL SALES REPRESENTATIVE, MEDICAL SALES REPRESENTATIVE-C Other Provider Active S tart: July 06, [...] Active Start: July 13, 2024 Evelyn Robertson MEDICAL SALES REPRESENTATIVE, MEDICAL SALES REPRESENTATIVE-C Attending Provider Active Start: July 13, 2024 Evelyn Robertson MEDICAL SALES REPRESENTATIVE, MEDICAL SALES REPRESENTATIVE-C Other Provider Active S tart: July 13, 2024 Team Status: Active Member Role/Relationship Status Dates Dr. Casie Trevizo MD Primary Care Provider Active Start: July 14, 2024 Sukumar PALM MD Attending Provider Active Start: July 14, 2024 Team Status: Active Member Role/Relationship Status Dates Dr. Casie Trevizo MD Primary Care Provider Active Start: July 18, 2024 Evelyn Robertson MEDICAL SALES REPRESENTATIVE, MEDICAL SALES REPRESENTATIVE-C Other Provider Active S tart: July 18, 2024 Dr. Aiden Bartholomew MD Attending Provider Active Start: July 18, 2024 Dr. Aiden Bartholomew MD Referring Provider Active Start: July 18, 2024 Team Status: Inactive Member Role/Relationship Status Dates Dr. Casie Trevizo MD Primary Care Provider Active Start: July 20, 2024 End: July 20, 2024 Ally Duron MEDICAL SALES REPRESENTATIVE, MEDICAL SALES REPRESENTATIVE-C Attending Provider Active Start: July 20, 2024 [...] 2024 End: August 01, 2024 Evelyn Robertson MEDICAL SALES REPRESENTATIVE, MEDICAL SALES REPRESENTATIVE-C Attending Provider Active Start: July 27, 2024 End: August 01, 2024 Team Status: Active Member Role/Relationship Status Dates Dr. Casie Trevizo MD Primary Care Provider Active Start: July 27, 2024 Dr. Casie Trevizo MD Referring Provider Active Start: July 27, 2024 Evelyn Robertson MEDICAL SALES REPRESENTATIVE, MEDICAL SALES REPRESENTATIVE-C Attending Provider Active Start: July 27, 2024 Evelyn Robertson MEDICAL SALES REPRESENTATIVE, MEDICAL SALES REPRESENTATIVE-C Other Provider Active S tart: July 27, 2024 Team Status: Active Member Role/Relationship Status Dates Dr. Casie Trevizo MD Primary Care Provider Active Start: August 03, 2024 Dr. Casie Trevizo MD Referring Provider Active Start: August 03, 2024 Evelyn Robertson MEDICAL SALES REPRESENTATIVE, MEDICAL SALES REPRESENTATIVE-C Attending Provider Active Start: August 03, 2024 Evelyn Robertson MEDICAL SALES REPRESENTATIVE, MEDICAL SALES REPRESENTATIVE-C Other Provider Active S tart: August 03, 2024 Team Status: Active Member Role/Relationship Status Dates Dr. Casie Trevizo MD Primary Care Provider Active Start: August 10, 2024 Dr. Casie Trevizo MD Referring Provider Active Start: August 10, 2024 Evelyn Robertson MEDICAL SALES REPRESENTATIVE, MEDICAL SALES REPRESENTATIVE-C Attending Provider Active Start: August 10, 2024 Evelyn Robertson MEDICAL SALES REPRESENTATIVE, MEDICAL SALES REPRESENTATIVE-C Other Provider Active S tart: August 10, 2024 Team Status: Active Member Role/Relationship Status Dates Dr. Casie Trevizo MD Primary Care Provider Active Start: August 17, 2024 Dr. Casie Trevizo MD Referring Provider Active Start: August 17, 2024 Evelyn Robertson MEDICAL SALES REPRESENTATIVE, MEDICAL SALES REPRESENTATIVE-C Attending Provider Active Start: August 17, 2024 Evelyn Robertson MEDICAL SALES REPRESENTATIVE, MEDICAL SALES REPRESENTATIVE-C Other Provider Active S tart: August 17, 2024 Team Status: Active Member Role/Relationship Status Dates Dr. Casie Trevizo MD Primary Care Provider Active Start: August 24, 2024 Dr. Casie Trevizo MD Referring Provider Active Start: August 24, 2024 Evelyn Robertson MEDICAL SALES REPRESENTATIVE, MEDICAL SALES REPRESENTATIVE-C Attending Provider Active Start: August 24, 2024 Evelyn Robertson MEDICAL SALES REPRESENTATIVE, MEDICAL SALES REPRESENTATIVE-C Other Provider Active S tart: August 24, 2024 Team Status: Inactive Member Role/Relationship Status Dates Dr. Casie Trevizo MD Primary Care Provider Active Start: August 31, 2024 End: August 31, 2024 Dr. Casie Trevizo MD Referring Provider Active Start: August 31, 2024 End: August 31, 2024 Evelyn Robertson MEDICAL SALES REPRESENTATIVE, MEDICAL SALES REPRESENTATIVE-C Attending Provider Active Start: August 31, 2024 End: August 31, 2024 Team Status: Active Member Role/Relationship Status Dates Dr. Casie Trevizo MD Primary Care Provider Active Start: August 31, 2024 Dr. Casie Trevizo MD Referring Provider Active Start: August 31, 2024 Evelyn Robertson MEDICAL SALES REPRESENTATIVE, MEDICAL SALES REPRESENTATIVE-C Attending Provider Active Start: August 31, 2024 Evelyn Robertson MEDICAL SALES REPRESENTATIVE, MEDICAL SALES REPRESENTATIVE-C Other Provider Active S tart: August 31, 2024 Team Status: Active Member Role/Relationship Status Dates Dr. Casie Trevizo MD Primary Care Provider Active Start: September 07, 2024 Dr. Casie Trevizo MD Referring Provider Active Start: September 07, 2024 Evelyn Robertson MEDICAL SALES REPRESENTATIVE, MEDICAL SALES REPRESENTATIVE-C Attending Provider Active Start: September 07, 2024 Evelyn Robertson MEDICAL SALES REPRESENTATIVE, MEDICAL SALES REPRESENTATIVE-C Other Provider Active S tart: September 07, 2024 Team Status: Active Member Role/Relationship Status Dates Dr. Casie Trevizo MD Primary Care Provider Active Start: September 14, 2024 Dr. Casie Trevizo MD Referring Provider Active Start: September 14, 2024 Evelyn Robertson MEDICAL SALES REPRESENTATIVE, MEDICAL SALES REPRESENTATIVE-C Attending Provider Active Start: September 14, 2024 Evelyn Robertson MEDICAL SALES REPRESENTATIVE, MEDICAL SALES REPRESENTATIVE-C Other Provider Active S tart: September 14, 2024 Team Status: Active Member Role/Relationship Status Dates Dr. Casie Trevizo MD Primary Care Provider Active Start: September 21, 2024 Dr. Casie Trevizo MD Referring Provider Active Start: September 21, 2024 Evelyn Robertson MEDICAL SALES REPRESENTATIVE, MEDICAL SALES REPRESENTATIVE-C Attending Provider Active Start: September 21, 2024 Evelyn Robertson MEDICAL SALES REPRESENTATIVE, MEDICAL SALES REPRESENTATIVE-C Other Provider Active S tart: September 21, 2024 Team Status: Inactive Member Role/Relationship Status Dates Dr. Casie Trevizo MD Primary Care Provider Active Start: September 28, 2024 End: October 01, 2024 Dr. Casie Trevizo MD Referring Provider Active Start: September 28, 2024 End: October 01, 2024 Evelyn Robertson MEDICAL SALES REPRESENTATIVE, MEDICAL SALES REPRESENTATIVE-C Attending Provider Active Start: September 28, 2024 End: October 01, 2024 Team Status: Active Member Role/Relationship Status Dates Dr. Casie Trevizo MD Primary Care Provider Active Start: September 28, 2024 Dr. Casie Trevizo MD Referring Provider Active Start: September 28, 2024 Evelyn Robertson MEDICAL SALES REPRESENTATIVE, MEDICAL SALES REPRESENTATIVE-C Attending Provider Active Start: September 28, 2024 Evelyn Robertson MEDICAL SALES REPRESENTATIVE, MEDICAL SALES REPRESENTATIVE-C Other Provider Active S tart: September 28, 2024 Team Status: Active Member Role/Relationship Status Dates Dr. Casie Trevizo MD Primary Care Provider Active Start: October 05, 2024 Dr. Casie Trevizo MD Referring Provider Active Start: October 05, 2024 Evelyn Robertson MEDICAL SALES REPRESENTATIVE, MEDICAL SALES REPRESENTATIVE-C Attending Provider Active Start: October 05, 2024 Evelyn Robertson MEDICAL SALES REPRESENTATIVE, MEDICAL SALES REPRESENTATIVE-C Other Provider Active S tart: October 05, 2024 Team Status: Inactive Member Role/Relationship Status Dates Dr. Casie Trevizo MD Primary Care Provider Active Start: October 12, 2024 End: October 31, 2024 Dr. Casie Trevizo MD Referring Provider Active Start: October 12, 2024 End: October 31, 2024 Evelyn Robertson MEDICAL SALES REPRESENTATIVE, MEDICAL SALES REPRESENTATIVE-C Attending Provider Active Start: October 12, 2024 End: October 31, 2024 Team Status: Active Member Role/Relationship Status Dates Dr. Casie Trevizo MD Primary Care Provider Active Start: October 12, 2024 Dr. Casie Trevizo MD Referring Provider Active Start: October 12, 2024 Evelyn Robertson MEDICAL SALES REPRESENTATIVE, MEDICAL SALES REPRESENTATIVE-C Attending Provider Active Start: October 12, 2024 Evelyn Robertson MEDICAL SALES REPRESENTATIVE, MEDICAL SALES REPRESENTATIVE-C Other Provider Active S tart: October 12, 2024 Team Status: Active Member Role/Relationship Status Dates Ye Hoffman MD Primary Care Provider Active Team Status: Active Member Role/Relationship Status Dates Dr. Casie Trevizo MD Primary Care Provider Active Start: September 07, 2024 Dr. Casie Trevizo MD Referring Provider Active Start: September 07, 2024 Evelyn Robertson MEDICAL SALES REPRESENTATIVE, MEDICAL SALES REPRESENTATIVE-C Attending Provider Active Start: September 07, 2024 Evelyn Robertson MEDICAL SALES REPRESENTATIVE, MEDICAL SALES REPRESENTATIVE-C Other Provider Active S tart: September 07, 2024 Team Status: Active Member Role/Relationship Status Dates Dr. Casie Trevizo MD Primary Care Provider Active Start: September 14, 2024 Dr. Casie Trevizo MD Referring Provider Active Start: September 14, 2024 Evleyn Robertson MEDICAL SALES REPRESENTATIVE, MEDICAL SALES REPRESENTATIVE-C Attending Provider Active Start: September 14, 2024 Evelyn Robertson MEDICAL SALES REPRESENTATIVE, MEDICAL SALES REPRESENTATIVE-C Other Provider Active S tart: September 14, 2024 Team Status: Active Member Role/Relationship Status Dates Dr. Casie Trevizo MD Primary Care Provider Active Start: September 21, 2024 Dr. Casie Trevizo MD Referring Provider Active Start: September 21, 2024 Evelyn Robertson MEDICAL SALES REPRESENTATIVE, MEDICAL SALES REPRESENTATIVE-C Attending Provider Active Start: September 21, 2024 Evelyn Robertson MEDICAL SALES REPRESENTATIVE, MEDICAL SALES REPRESENTATIVE-C Other Provider Active S tart: September 21, 2024 Team Status: Inactive Member Role/Relationship Status Dates Dr. Casie Trevizo MD Primary Care Provider Active Start: September 28, 2024 End: October 01, 2024 Dr. Casie Trevizo MD Referring Provider Active Start: September 28, 2024 End: October 01, 2024 Evelyn Robertson MEDICAL SALES REPRESENTATIVE, MEDICAL SALES REPRESENTATIVE-C Attending Provider Active Start: September 28, 2024 End: October 01, 2024 Team Status: Active Member Role/Relationship Status Dates Dr. Casie Trevizo MD Primary Care Provider Active Start: September 28, 2024 Dr. Casie Trevizo MD Referring Provider Active Start: September 28, 2024 Evelyn Robertson MEDICAL SALES REPRESENTATIVE, MEDICAL SALES REPRESENTATIVE-C Attending Provider Active Start: September 28, 2024 Evelyn Robertson MEDICAL SALES REPRESENTATIVE, MEDICAL SALES REPRESENTATIVE-C Other Provider Active S tart: September 28, 2024 Team Status: Active Member Role/Relationship Status Dates Dr. Casie Trevizo MD Primary Care Provider Active Start: October 05, 2024 Dr. Casie Trevizo MD Referring Provider Active Start: October 05, 2024 Evelyn Robertson MEDICAL SALES REPRESENTATIVE, MEDICAL SALES REPRESENTATIVE-C Attending Provider Active Start: October 05, 2024 Evelyn Robertson MEDICAL SALES REPRESENTATIVE, MEDICAL SALES REPRESENTATIVE-C Other Provider Active S tart: October 05, 2024 Team Status: Inactive Member Role/Relationship Status Dates Dr. Casie Trevizo MD Primary Care Provider Active Start: October 12, 2024 End: October 31, 2024 Dr. Casie Trevizo MD Referring Provider Active Start: October 12, 2024 End: October 31, 2024 Evelyn Robertson MEDICAL SALES REPRESENTATIVE, MEDICAL SALES REPRESENTATIVE-C Attending Provider Active Start: October 12, 2024 End: October 31, 2024 Team Status: Active Member Role/Relationship Status Dates Dr. Casie Trevizo MD Primary Care Provider Active Start: October 12, 2024 Dr. Casie Trevizo MD Referring Provider Active Start: October 12, 2024 Evelyn Robertson MEDICAL SALES REPRESENTATIVE, MEDICAL SALES REPRESENTATIVE-C Attending Provider Active Start: October 12, 2024 Evelyn Robertson MEDICAL SALES REPRESENTATIVE, MEDICAL SALES REPRESENTATIVE-C Other Provider Active S tart: October 12, 2024 Team Status: Inactive Member Role/Relationship Status Dates Ye Hoffman MD Primary Care Provider Active St art: December 27, 2024 End: December 27, 2024 eY Hoffman MD Attending Provider Active Start : December 27, 2024 End: December 27, 2024 Ye Hoffman MD Referring Provider Active Start : December 27, 2024 End: December 27, 2024 Team Status: Active Member Role/Relationship Status Dates Dr. Casie Trevizo MD Primary Care Provider Active Start: September 21, 2024 Dr. Casie Trevizo MD Referring Provider Active Start: September 21, 2024 Evelyn Robertson MEDICAL SALES REPRESENTATIVE, MEDICAL SALES REPRESENTATIVE-C Attending Provider Active Start: September 21, 2024 Evelyn Robertson MEDICAL SALES REPRESENTATIVE, MEDICAL SALES REPRESENTATIVE-C Other Provider Active S tart: September 21, 2024 Team Status: Inactive Member Role/Relationship Status Dates Dr. Casie Trevizo MD Primary Care Provider Active Start: September 28, 2024 End: October 01, 2024 Dr. Casie Trevizo MD Referring Provider Active Start: September 28, 2024 End: October 01, 2024 Evelyn Robertson MEDICAL SALES REPRESENTATIVE, MEDICAL SALES REPRESENTATIVE-C Attending Provider Active Start: September 28, 2024 End: October 01, 2024 Team Status: Active Member Role/Relationship Status Dates Dr. Casie Trevizo MD Primary Care Provider Active Start: September 28, 2024 Dr. Casie Trevizo MD Referring Provider Active Start: September 28, 2024 Evelyn Robertson MEDICAL SALES REPRESENTATIVE, MEDICAL SALES REPRESENTATIVE-C Attending Provider Active Start: September 28, 2024 Evelyn Robertson MEDICAL SALES REPRESENTATIVE, MEDICAL SALES REPRESENTATIVE-C Other Provider Active S tart: September 28, 2024 Team Status: Active Member Role/Relationship Status Dates Dr. Casie Trevizo MD Primary Care Provider Active Start: October 05, 2024 Dr. Casie Trevizo MD Referring Provider Active Start: October 05, 2024 Evelyn Robertson MEDICAL SALES REPRESENTATIVE, MEDICAL SALES REPRESENTATIVE-C Attending Provider Active Start: October 05, 2024 Evelyn Robertson MEDICAL SALES REPRESENTATIVE, MEDICAL SALES REPRESENTATIVE-C Other Provider Active S tart: October 05, 2024 Team Status: Inactive Member Role/Relationship Status Dates Dr. Casie Trevizo MD Primary Care Provider Active Start: October 12, 2024 End: October 31, 2024 Dr. Casie Trevizo MD Referring Provider Active Start: October 12, 2024 End: October 31, 2024 Evelyn Robertson MEDICAL SALES REPRESENTATIVE, MEDICAL SALES REPRESENTATIVE-C Attending Provider Active Start: October 12, 2024 End: October 31, 2024 Team Status: Active Member Role/Relationship Status Dates Dr. Casie Trevizo MD Primary Care Provider Active Start: October 12, 2024 Dr. Casie Trevizo MD Referring Provider Active Start: October 12, 2024 Evelyn Robertson MEDICAL SALES REPRESENTATIVE, MEDICAL SALES REPRESENTATIVE-C Attending Provider Active Start: October 12, 2024 Evelyn Robertson MEDICAL SALES REPRESENTATIVE, MEDICAL SALES REPRESENTATIVE-C Other Provider Active S tart: October 12, [...] section and content) DATE CREATED AUTHOR 04/08/2021 [facility] DATE CREATED AUTHOR AUTHOR'S ORGANIZ ATION 05/12/2024 [facility] DATE CREATED AUTHOR AUTHOR'S ORGANIZ ATION 05/19/2024 [facility] DATE CREATED AUTHOR AUTHOR'S ORGANIZ ATION 02/07/2025 [facility] Goals (unrecognized section and content) Goals may [...] or prosecute any alcohol or drug abuse patient.[facility] the event this information is protected by the Federal Confidentiality of Alcohol and Drug Abuse Patient Records regulations: The Federal rules restrict any use of the information to criminally investigate or prosecute any alcohol or drug abuse patient.[facility] Hospital[facility] the event this information is protected by the Federal Confidentiality of Alcohol and Drug Abuse Patient Records regulations: The Federal rules restrict any use of the information to criminally investigate or prosecute any alcohol or drug abuse patient.[facility] the event this information is protected by the Federal Confidentiality of Alcohol and Drug Abuse Patient Records regulations: The Federal rules restrict any use of the information to criminally investigate or prosecute any alcohol or drug abuse patient.[facility] FOR RECORDS PERTAINING TO PATIENTS WHO [...] BE BASED ON THE PRIMARY CLINICAL RECORDS. [facility] [employer] [facility]. provides no warranty or guarantee of the accuracy or completeness of information in this document.
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
[2025-03-11 17:39] LABS: Reflex Lactate? Y
--- OUTSIDE RECORDS SUMMARY | 2025-03-11 17:41 | XMS RPT_ITS | CCD ---
Author Organization [facility] CliniSywy Care Team Providers Care Oncology Specialist Name Role Phone Maryanne Valencia Unavailable Unavailable [...] Dr. Casie Trevizo MD Referring Provider Marcelo DECKHAND OYSTER DREDGE-C, Evelyn Attending Provider Marcelo DECKHAND OYSTER DREDGE-C, Evelyn Other Provider [phone] Sukumar Velazquez MD Attending Provider Unavailasim Velazquez MD, Dr. Patino Attending Provider Corine DECKHAND OYSTER DREDGE-C, Brooke E Attending Provider Corine DECKHAND OYSTER DREDGE-C, Brooke E Referring Provider Caroline DENIS, Sukumar Referring Provider Unavailasim Orlando MD, Dr. Gongora Attending Provider Dr. Fransisca Orlando MD Referring Provider Danial DENIS, Dr. Juan Carlos Vera Attending Provider Joseline DENIS, Dr. Casie Burnham Attending Provider Puma DENIS, Dr. Wolfe Attending Provider Puma DENIS, Dr. Wolfe Referring Provider Domi DECKHAND OYSTER DREDGE-C, Ally Attending Provider Joseline DENIS, Dr. Casie Burnham Primary Care Provider Joseline DENIS, Dr. Casie Burnham Referring Provider Darion DENIS, Dr. Gongora Attending Provider Dr. Fransisca Orlando MD Referring Provider Robertson DECKHAND OYSTER DREDGE-C, Evelyn Other Provider Danial DENIS, Dr. Juan Carlos Vera Attending Provider Caroline DENIS, Sukumar Attending Provider Unavailasim Velaqzuez MD, Sukumar Referring Provider Unavailasim Trevizo MD, Dr. Casie Burnham Attending Provider Robertson DECKHAND OYSTER DREDGE-C, Evelyn Attending Provider Dr. Aiden Bartholomew MD Attending Provider Dr. Aiden Bartholomew MD Referring Provider Tickarminda DECKHAND OYSTER DREDGE-C, Ally Attending Provider Joseline DENIS, Dr. Casie Burnham Primary Care Provider Joseline DENIS, Dr. Casie Burnham Referring Provider Robertson DECKHAND OYSTER DREDGE-C, Evelyn Attending Provider Robertson DECKHAND OYSTER DREDGE-C, Evelyn Other Provider aYsmin DENIS, Ye Primary Care Provider Yasmin DENIS, Ye Attending Provider Yasmin DENIS, Ye Referring Provider Joseline DENIS, Dr. Casie Burnham Primary Care Provider Joseline DENIS, Dr. Casie Burnham Referring Provider Marcelo DECKHAND OYSTER DREDGE-C, Evelyn Attending Provider Marcelo DECKHAND OYSTER DREDGE-C, Evelyn Other Provider Cj DENIS, Dr. Graves Attending Provider Cj [...] Unavailable Jolliff, Casie S Referring Unavailable Robertson DECKHAND OYSTER DREDGE, Evelyn Attending Unavailable Jolliff, Casie S Primary Care Unavailable Robertson DECKHAND OYSTER DREDGE, Evelyn Attending Unavailable Jolliff, Casie S Referring Unavailable Jolliff, Casie S Primary Care Unavailable Robertson DECKHAND OYSTER DREDGE, Evelyn Attending Unavailable Jolliff, Casie S Referring Unavailable Robertson DECKHAND OYSTER DREDGE, Evelyn Attending Unavailable Jolliff, Casie S Referring [...] Primary Care Unavailable Morales, Achintya Consulting Unavailable Moraels, Achintya Admitting Unavailable Carlos Munoz Attending Unavailable [...] Jolliff, Casie S Primary Care Unavailable Corine DECKHAND OYSTER DREDGE, Brooke Haile Referring Unavailabl issa Pool DECKHAND OYSTER DREDGE, Brooke Haile Attending Unavailabl e Marcelo DECKHAND OYSTER DREDGE, Evelyn Consulting Unavailable Aiden Bartholomew Referring Unavailable Jolliff, Casie S Primary Care Unavailable Aiden Bartholomew Attending Unavailable Marcelo DECKHAND OYSTER DREDGE, Evelyn Consulting Unavailable Ciaran Garcia Attending Unavailable Ciaran Garcia Consulting Unavailable Morales, Achintya Attending Unavailable Isma, Gonzalez Attending Unavailable Jolliff, Casie S Primary Care Unavailable Domi PAGAN, Ally Attending Unavailable Jolliff, Casie S Primary Care Unavailable Fransisca Orlando Attending Unavailable Jolliff, Casie S Referring Unavailable Jolliff, Casie S Primary Care Unavailable Oleghe, Efewongbe Attending Unavailable Jolliff, Casie S Primary Care Unavailable Domi DECKHAND OYSTER DREDGE, Ally Attending Unavailable Oleghe, Efewongbe Attending Unavailable Jolliff, Casie S Primary Care Unavailable Oleghe OLS, Efewongbe Attending Unavailabl e Jolliff, Casie S Primary Care Unavailable Jolliff, Casie S Primary Care Unavailable Marcelo DECKHAND OYSTER DREDGE, Evelyn Attending Unavailable Jolliff, Casie S Referring [...] Unavailable Jolliff, Casie S Referring Unavailable Marcelo DECKHAND OYSTER DREDGE, Evelyn Attending Unavailable Allergies Allergy Classification Reported Allergen(s) Allergy Type Date of Onset Reaction(s) Facility ziconotide (6 sources) ziconotide Drug Allergy 1 [facility] (16 sources) ziconotide; Translations: [ZICONOTIDE] Drug Allergy 1 Other: See Comments [facility] Comment on above: seizure like activit y (1 source) ziconotide Drug Allergy 5 [facility] Repository Medications Current Medications Medication Drug Class(es) [...] Suspended docusate sodium 50 mg / sennosides, nursing home 8.6 mg oral tablet (20 sources) Start: [...] Start: 01-14-2021 take 1 capsule by mo [facility] once daily Duloxetine (Cymbalta) 60 mg Capsule,Delayed [...] December 16, 2023 12:00am polyethylene glycol 3350 47393 mg powder for oral solution (20 sources) [...] 06, 2015 12:00am September 14, 2015 3:21pm Eebtx-Fuwb-Kptj v-Nswdmf-Bs-Min (Leeroy (With Collagen)) 1 PACKET Packet (20 sources) Start: 08-06-2015 End: 09-14-2015 take 1 dose by mouth twice daily at mealtime Onulz-Dswb-Jfdgi-Collag- Mv-Min (Leeroy (With Collagen)) 1 PACKET Packet Discontinued 1 PACKET PO TWICE DAILY WITH MEALS August 06, 2015 6:34pm September 14, 2015 3:22pm Start: 08-06-2015 End: 09-14-2015 take 1 dose by mouth twice daily at mealtime Lzglf-Ftwr-Uaoto-Yjnztm-Hz-Acb (Leeroy (W ith Collagen)) 1 PACKET Packet Discontinued 1 NMA PO TWICE DAILY WITH MEALS 30 August 06, 2015 12:00am September 14, 2015 3:22pm Start: 08-06-2015 End: 09-14-2015 take 1 dose by mouth twice daily at mealtime Edzvr-Ndyr-Zbufi-Alzzke-Ft-Dyw (Leeroy (W ith Collagen)) 1 PACKET Packet Discontinued 1 PACKET PO TWICE DAILY WITH MEALS August 05, 2015 11:00pm September 14, 2015 2:22pm Start: 08-06-2015 End: 09-14-2015 take 1 dose by mouth twice daily at mealtime Nnopb-Qxmb-Tgjnn-Wluxcu-Tr-Kdc (Leeroy (W ith Collagen)) 1 PACKET Packet Discontinued 1 PACKET PO TWICE DAILY WITH MEALS August 06, 2015 12:00am September 14, 2015 3:22pm Start: 05-05-2015 End: 05-13-2015 take 1 dose by mouth twice daily at mealtime Hjiln-Yntd-Cghkv-Iemops-Ht-Gsh (Leeroy (W ith Collagen)) 1 PACKET Packet Discontinued 1 PACKET PO TWICE DAILY WITH MEALS May 05, 2015 10:32am May 13, 2015 3:21pm Start: 05-05-2015 End: 05-13-2015 take 1 dose by mouth twice daily at mealtime Sdfrp-Gpps-Tfmuf-Bleywc-Bm-Pfk (Leeroy (W ith Collagen)) 1 PACKET Packet Discontinued 1 NMA PO TWICE DAILY WITH MEALS May 05, 2015 1:00am May 13, 2015 3:21pm Start: 05-05-2015 End: 05-13-2015 take 1 dose by mouth twice daily at mealtime Winje-Wrou-Pzetu-Kxtkxc-Tn-Kfi (Leeroy (W ith Collagen)) 1 PACKET Packet Discontinued 1 PACKET PO TWICE DAILY WITH MEALS May 05, 2015 12:00am May 13, 2015 2:21pm Start: 05-05-2015 End: 05-13-2015 take 1 dose by mouth twice daily at mealtime Mmeqc-Stmq-Jjdtj-Xzydll-Qw-Hnk (Leeroy (W ith Collagen)) 1 PACKET Packet [...] Coronary arteriosclerosis; 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] 12-07-2009 Chronic [...] nton 01-16-2025 Fluoro Guided Needle Placement Normal [facility] Operative Reporton Operative Report Normal [facility] Absolute lymphocyte countOrd ered By: Donmatias Yasmin on 12-27-2024 Lymphocytes Auto (Unsp spec) [#/Vol] 0.57 10*3/uL Low 0.83-4.51 [facility] Absolute neutrophil countOrd ered By: [facility] on 12-27-2024 Neutrophils (Bld) [#/Vol] 7.3 10*3/uL 2.0-7.7 [facility] Anion gap in Serum or Plasma Ordered By: Ye Hoffman on 12-27-2024 Anion gap [Moles/Vol] 12 mmol/L 5-15 [facility] Automated lymphocyte count a s percentage of total leukocytesOrdered By: Ye Hoffman on 12-27-2024 Lymphocytes/100 WBC Auto (Unsp spec) 6.8 % Low 19-41 [facility] BUN/creatinine ratioOrdered By: [facility] Yasmin on 12-27-2024 Urea nitrogen/Creatinine [Mass ratio] 21.1 mg/mg High 10-20 [facility] Basophil percentageOrdered B y: Ye Hoffman on 12-27-2024 Basophils/100 WBC (Bld) 0.2 % 0-1 [facility] Bilirubin, totalOrdered By: Ye Hoffman on 12-27-2024 Bilirubin [Mass/Vol] 0.25 mg/dL 0.00-1.30 [facility] CBC W/Diff, Automatedon 12-03 Absolute Lymph 0.57 X10 3/uL Low 0.83-4.51 [facility] Comment on above: Performed By: #### L 100.0100 ####[facility] [address] [place], [address] Absolute Neut 7.3 X10 3/uL Normal 2.0-7.7 [facility] Comment on above: Performed By: #### L 100.0100 ####[facility] [address] [place], [address] Basophils/100 WBC (Bld) 0.2 % Normal 0-1 [facility] Comment on above: Performed By: #### L 100.0100 ####[facility] [address] [place], [address] Eosinophils/100 WBC (Bld) 1.0 % Normal 0-5 [facility] Comment on above: Performed By: #### L 100.0100 ####[facility] [address] [place], [address] Erythrocyte distribution width (RBC) [Ratio] 13.1 % Normal 11.6-14.6 [facility] Comment on above: Performed By: #### L 100.0100 ####[facility] [address] [place], [address] Hematocrit (Bld) [Volume fraction] 38.0 % Normal 37-47 [facility] Comment on above: Performed By: #### L 100.0100 ####[facility] [address] [place], [address] Hemoglobin (Bld) [Mass/Vol] 12.7 g/dL Normal 12.0-15.0 [facility] Comment on above: Performed By: #### L 100.0100 ####[facility] [address] [place], [address] IG% 0.400 Normal 0.0-0.9 [facility] Comment on above: Result Comment: IG% - Immature Granulocytes (promyelocytes, myelocytes andmetamyelocytes) > 1% indicates that a LEFT SHIFT is Present. Performed By: #### L 100.0100 ####[facility] [address] [place], [address] Lymphocytes/100 WBC (Bld) 6.8 % Low 19-41 [facility] Comment on above: Performed By: #### L 100.0100 ####[facility] [address] [place], [address] MCH (RBC) [Entitic mass] 32.8 pg High 27.0-32.0 [facility] Comment on above: Performed By: #### L 100.0100 ####[facility] [address] [place], [address] MCHC (RBC) [Mass/Vol] 33.4 g/dL Normal 32-36 [facility] Comment on above: Performed By: #### L 100.0100 ####[facility] [address] [place], [address] MCV (RBC) [Entitic vol] 98.2 fL Normal 81-99 [facility] Comment on above: Performed By: #### L 100.0100 ####[facility] [address] [place], [address] Monocytes/100 WBC (Bld) 4.9 % Normal 0-10 [facility] Comment on above: Performed By: #### L 100.0100 ####[facility] [address] [place], [address] Neutrophils/100 WBC (Bld) 86.7 % High 47-70 [facility] Comment on above: Performed By: #### L 100.0100 ####[facility] [address] [place], [address] Nucleated RBC (Bld) [#/Vol] 0 10*3/uL Normal 0-5 [facility] Comment on above: Performed By: #### L 100.0100 ####[facility] [address] [place], [address] Platelet mean volume (Bld) [Entitic vol] 10.7 fL Normal 6.2-12.0 [facility] Comment on above: Performed By: #### L 100.0100 ####[facility] [address] [place], [address] Platelets (Bld) [#/Vol] 184 10*3/uL Normal 150-450 [facility] Comment on above: Performed By: #### L 100.0100 ####[facility] [address] [place], [address] RBC (Bld) [#/Vol] 3.87 10*6/uL Low 4.2-5.4 [facility] Comment on above: Performed By: #### L 100.0100 ####[facility] [address] [place], [address] RDW SD 46.8 fl High 35.1-43.9 [facility] Comment on above: Performed By: #### L 100.0100 ####[facility] [address] [place], [address] WBC (Bld) [#/Vol] 8.4 10*3/uL Normal 4.4-11.0 [facility] Comment on above: Performed By: #### L 100.0100 ####[facility] [address] [place], [address] CBC-Complete Blood Cnt No Di ffon 12-27-2024 HCT Normal 37-47 [facility] Comment on above: Order Comment: Order Date: 12/27/24Order Info: [id number] - CBC Result Comment: WRMATIAS G Performed By: #### L 501.9985, L501.9520, L503.6550, L500.4050, L100.0500, L503.6030, L500.4100 ####[facility] [address] [place], [address] HGB Normal 12.0-15.0 [facility] Comment on above: Order Comment: Order Date: 12/27/24Order Info: [id number] - CBC Result Comment: WRON G Performed By: #### L 501.9985, L501.9520, L503.6550, L500.4050, L100.0500, L503.6030, L500.4100 ####[facility] [address] [place], [address] MCH Normal 27.0-32.0 [facility] Comment on above: Order Comment: Order Date: 12/27/24Order Info: [id number] - CBC Result Comment: WRON G Performed By: #### L 501.9985, L501.9520, L503.6550, L500.4050, L100.0500, L503.6030, L500.4100 ####[facility] [address] [place], [address] MCHC Normal 32-36 [facility] Comment on above: Order Comment: Order Date: 12/27/24Order Info: [id number] - CBC Result Comment: WRON G Performed By: #### L 501.9985, L501.9520, L503.6550, L500.4050, L100.0500, L503.6030, L500.4100 ####[facility] [address] [place], [address] MCV Normal 81-99 [facility] Comment on above: Order Comment: Order Date: 12/27/24Order Info: [id number] - CBC Result Comment: WRON G Performed By: #### L 501.9985, L501.9520, L503.6550, L500.4050, L100.0500, L503.6030, L500.4100 ####[facility] [address] [place], [address] PLT Normal 150-450 [facility] Comment on above: Order Comment: Order Date: 12/27/24Order Info: [id number] - CBC Result Comment: WRON G Performed By: #### L 501.9985, L501.9520, L503.6550, L500.4050, L100.0500, L503.6030, L500.4100 ####[facility] [address] [place], [address] RBC Normal 4.2-5.4 [facility] Comment on above: Order Comment: Order Date: 12/27/24Order Info: [id number] - CBC Result Comment: WRON G Performed By: #### L 501.9985, L501.9520, L503.6550, L500.4050, L100.0500, L503.6030, L500.4100 ####[facility] [address] [place], [address] RDW CV Normal 11.6-14.6 [facility] Comment on above: Order Comment: Order Date: 12/27/24Order Info: [id number] - CBC Result Comment: WRON G Performed By: #### L 501.9985, L501.9520, L503.6550, L500.4050, L100.0500, L503.6030, L500.4100 ####[facility] [address] [place], [address] RDW SD Normal 35.1-43.9 [facility] Comment on above: Order Comment: Order Date: 12/27/24Order Info: [id number] - CBC Result Comment: WRON G Performed By: #### L 501.9985, L501.9520, L503.6550, L500.4050, L100.0500, L503.6030, L500.4100 ####[facility] [address] [place], [address] WBC Normal 4.4-11.0 [facility] Comment on above: Order Comment: Order Date: 12/27/24Order Info: [id number] - CBC Result Comment: WRON G Performed By: #### L 501.9985, L501.9520, L503.6550, L500.4050, L100.0500, L503.6030, L500.4100 ####[facility] [address] [place], [place], [address] Calculated very low density lipoprotein (VLDL) cholesterol measurementOrdered By: Ye Hoffman on 12-27-2024 Calculated very low density lipoprotein (VLDL) cholesterol measurement 10 mg/dL 5-40 [facility] Carbon dioxide, total [Moles /volume] in Central venous bloodOrdered By: Ye Hoffman on 12-27-2024 CO2 [Moles/Vol] 26.0 mmol/L 21.0-32.0 [facility] Chloride assayOrdered By: Juliocesar Hoffman on 12-27-2024 Chloride [Moles/Vol] 101 mmol/L 98-108 [facility] Comprehensive Metabolic Prof ilon 12-27-2024 Albumin [Mass/Vol] 4.2 g/dL Normal 3.4-4.8 [facility] Comment on above: Order Comment: Order Date: 12/27/24Order Info: [id number] - CMPOrder Info: [id number] - LIPIDOrder Info: [id number] - TSHOrder Info: [id number] - IBCOrder Info: [id number] - MEG Performed By: #### L 501.9985, L501.9520, L503.6550, L500.4050, L100.0500, L503.6030, L500.4100 ####[facility] [address] [place], [place], [address] Albumin/Globulin [Mass ratio] 1.6 {ratio} Normal 0.9-2.4 [facility] Comment on above: Order Comment: Order Date: 12/27/24Order Info: [id number] - CMPOrder Info: [id number] - LIPIDOrder Info: [id number] - TSHOrder Info: [id number] - IBCOrder Info: [id number] - MEG Performed By: #### L 501.9985, L501.9520, L503.6550, L500.4050, L100.0500, L503.6030, L500.4100 ####[facility] [address] [place], [address] ALK PHOS 48 U/L Normal 35-104 [facility] Comment on above: Order Comment: Order Date: 12/27/24Order Info: [id number] - CMPOrder Info: [id number] - LIPIDOrder Info: [id number] - TSHOrder Info: [id number] - IBCOrder Info: [id number] - MEG Performed By: #### L 501.9985, L501.9520, L503.6550, L500.4050, L100.0500, L503.6030, L500.4100 ####[facility] [address] [place], [address] ALT [Catalytic activity/Vol] 12 U/L Normal <=34 [facility] Comment on above: Order Comment: Order Date: 12/27/24Order Info: [id number] - CMPOrder Info: [id number] - LIPIDOrder Info: 3 - TSHOrder Info: [id number] - IBCOrder Info: 4 - MEG Performed By: #### L 501.9985, L501.9520, L503.6550, L500.4050, L100.0500, L503.6030, L500.4100 ####[facility] [address] [place], [address] AST [Catalytic activity/Vol] 21 U/L Normal <=31 [facility] Comment on above: Order Comment: Order Date: 12/27/24Order Info: [id number] - CMPOrder Info: [id number] - LIPIDOrder Info: [id number] - TSHOrder Info: [id number] - IBCOrder Info: [id number] - MEG Performed By: #### L 501.9985, L501.9520, L503.6550, L500.4050, L100.0500, L503.6030, L500.4100 ####[facility] [address] [place], [address] Bilirubin [Mass/Vol] 0.25 mg/dL Normal 0.00-1.30 [facility] Comment on above: Order Comment: Order Date: 12/27/24Order Info: [id number] - CMPOrder Info: [id number] - LIPIDOrder Info: [id number] - TSHOrder Info: [id number] - IBCOrder Info: [id number] - MEG Performed By: #### L 501.9985, L501.9520, L503.6550, L500.4050, L100.0500, L503.6030, L500.4100 ####[facility] [address] [place], [address] BUN/CRE 21.1 RATIO High 10-20 [facility] Comment on above: Order Comment: Order Date: 12/27/24Order Info: [id number] - CMPOrder Info: [id number] - LIPIDOrder Info: 3 - TSHOrder Info: [id number] - IBCOrder Info: [id number] - MEG Performed By: #### L 501.9985, L501.9520, L503.6550, L500.4050, L100.0500, L503.6030, L500.4100 ####[facility] [address] [place], [address] Calcium [Mass/Vol] 9.2 mg/dL Normal 7.6-11.0 [facility] Comment on above: Order Comment: Order Date: 12/27/24Order Info: [id number] - CMPOrder Info: [id number] - LIPIDOrder Info: [id number] - TSHOrder Info: [id number] - IBCOrder Info: [id number] - MEG Performed By: #### L 501.9985, L501.9520, L503.6550, L500.4050, L100.0500, L503.6030, L500.4100 ####[facility] [address] [place], [address] Chloride [Moles/Vol] 101 mmol/L Normal 98-108 [facility] Comment on above: Order Comment: Order Date: 12/27/24Order Info: [id number] - CMPOrder Info: [id number] - LIPIDOrder Info: [id number] - TSHOrder Info: [id number] - IBCOrder Info: [id number] - MEG Performed By: #### L 501.9985, L501.9520, L503.6550, L500.4050, L100.0500, L503.6030, L500.4100 ####[facility] [address] [place], [address] CO2 [Moles/Vol] 26.0 mmol/L Normal 21.0-32.0 [facility] Comment on above: Order Comment: Order Date: 12/27/24Order Info: [id number] - CMPOrder Info: [id number] - LIPIDOrder Info: 3 - TSHOrder Info: [id number] - IBCOrder Info: [id number] - MEG Performed By: #### L 501.9985, L501.9520, L503.6550, L500.4050, L100.0500, L503.6030, L500.4100 ####[facility] [address] [place], [place], [phone] Creatinine [Mass/Vol] 0.42 mg/dL Low 0.70-1.20 [facility] Comment on above: Order Comment: Order Date: 12/27/24Order Info: [id number] - CMPOrder Info: [id number] - LIPIDOrder Info: 3 - TSHOrder Info: [id number] - IBCOrder Info: [id number] - MEG Performed By: #### L 501.9985, L501.9520, L503.6550, L500.4050, L100.0500, L503.6030, L500.4100 ####[facility] [address] [place], [address] GAP 12 Normal 5-15 [facility] Comment on above: Order Comment: Order Date: 12/27/24Order Info: [id number] - CMPOrder Info: - LIPIDOrder Info: [id number] - TSHOrder Info: [id number] - IBCOrder Info: [id number] - MEG Performed By: #### L 501.9985, L501.9520, L503.6550, L500.4050, L100.0500, L503.6030, L500.4100 ####[facility] [address] [facility] [address] [place], [place], [address] GFR/1.73 sq M.predicted among non-blacks MDRD (S/P/Bld) [Vol rate/Area] 103 mL/min/{1.73_m2} Normal >60 [facility] Comment on above: Order Comment: Order Date: 12/27/24Order Info: [id number] - CMPOrder Info: - LIPIDOrder Info: [id number] - TSHOrder Info: - IBCOrder Info: [id number] - MEG Result Comment: mL/m in/1.73m2 CKD-EPI Creatinine Equation (2020) Performed By: #### L 501.9985, L501.9520, L503.6550, L500.4050, L100.0500, L503.6030, L500.4100 ####[facility] [address] [place], [place], [phone] Globulin (S) [Mass/Vol] 2.6 g/dL Normal 2.2-4.2 [facility] Comment on above: Order Comment: Order Date: 12/27/24Order Info: [id number] - CMPOrder Info: - LIPIDOrder Info: [id number] - TSHOrder Info: [id number] - IBCOrder Info: [id number] - MEG Performed By: #### L 501.9985, L501.9520, L503.6550, L500.4050, L100.0500, L503.6030, L500.4100 ####[facility] [address] [place], [address] Glucose [Mass/Vol] 85 mg/dL Normal 70-99 [facility] Comment on above: Order Comment: Order Date: 12/27/24Order Info: [id number] - CMPOrder Info: [id number] - LIPIDOrder Info: [id number] - TSHOrder Info: [id number] - IBCOrder Info: [id number] - MEG Performed By: #### L 501.9985, L501.9520, L503.6550, L500.4050, L100.0500, L503.6030, L500.4100 ####[facility] [address] [place], [address] Potassium [Moles/Vol] 3.7 mmol/L Normal 3.3-5.1 [facility] Comment on above: Order Comment: Order Date: 12/27/24Order Info: [id number] - CMPOrder Info: [id number] - LIPIDOrder Info: 3 - TSHOrder Info: [id number] - IBCOrder Info: 4 - MEG Performed By: #### L 501.9985, L501.9520, L503.6550, L500.4050, L100.0500, L503.6030, L500.4100 ####[facility] [address] [place], [address] Sodium [Moles/Vol] 139 mmol/L Normal 133-145 [facility] Comment on above: Order Comment: Order Date: 12/27/24Order Info: [id number] - CMPOrder Info: [id number] - LIPIDOrder Info: 3 - TSHOrder Info: [id number] - IBCOrder Info: [id number] - MEG Performed By: #### L 501.9985, L501.9520, L503.6550, L500.4050, L100.0500, L503.6030, L500.4100 ####[facility] [address] [place], [place], [id number] T PROT 6.8 g/dL Normal 5.9-8.4 [facility] Comment on above: Order Comment: Order Date: 12/27/24Order Info: [id number] - CMPOrder Info: [id number] - LIPIDOrder Info: [id number] - TSHOrder Info: [id number] - IBCOrder Info: [id number] - MEG Performed By: #### L 501.9985, L501.9520, L503.6550, L500.4050, L100.0500, L503.6030, L500.4100 ####[facility] [address] [place], [place], [id number] Urea nitrogen [Mass/Vol] 9 mg/dL Normal 4-19 [facility] Comment on above: Order Comment: Order Date: 12/27/24Order Info: [id number] - CMPOrder Info: [id number] - LIPIDOrder Info: [id number] - TSHOrder Info: [id number] - IBCOrder Info: [id number] - MEG Performed By: #### L 501.9985, L501.9520, L503.6550, L500.4050, L100.0500, L503.6030, L500.4100 ####[facility] [address] [place], [place], [address] Eosinophil percentageOrdered By: Ye Hoffman on 12-27-2024 Eosinophils/100 WBC (Bld) 1.0 % 0-5 [facility] Erythrocyte distribution wid th ratioOrdered By: Ye Hoffman on 12-27-2024 Erythrocyte distribution width (RBC) [Ratio] 13.1 % 11.6-14.6 [facility] Erythrocyte distribution wid th standard deviationOrdered By: Ye Hoffman on 12-27-2024 Erythrocyte distribution width (RBC) [Ratio] 46.8 fl High 35.1-43.9 [facility] Ferritinon 12-27-2024 Ferritin [Mass/Vol] 30 ng/mL Normal 22-378 [facility] Comment on above: Order Comment: Order Date: 12/27/24Order Info: [id number] - CMPOrder Info: [id number] - LIPIDOrder Info: [id number] - TSHOrder Info: [id number] - IBCOrder Info: [id number] - MEG Performed By: #### L 501.9985, L501.9520, L503.6550, L500.4050, L100.0500, L503.6030, L500.4100 ####[facility] [address] [place], [address] Glomerular filtration rate ( GFR) estimation/1.73 sq m using serum, plasma, or whole bOrdered By: eY Hoffman on 12-27-2024 GFR/1.73 sq M.predicted among non-blacks MDRD (S/P/Bld) [Vol rate/Area] 103 mL/min/{1.73_m2} >60 [facility] Comment on above: mL/min/1.73m2 CKD-EP I Creatinine Equation (2020) Hematocrit Auto (Bld) [Volum e fraction]Ordered By: Ye Hoffman on 12-27-2024 Hematocrit (Bld) [Volume fraction] 38.0 % 37-47 [facility] Hemoglobin A1con 12-27-2024 HbA1c (Bld) [Mass fraction] 4.7 % Normal <=5.6 [facility] Comment on above: Order Comment: Order Date: 12/27/24Order Info: [id number] - A1C Result Comment: Norm al < 5.7 % Prediabetic 5.7 - 6.4 % Diabetic >or= 6.5 % Please note range changes. Performed By: #### L 501.9985, L501.9520, L503.6550, L500.4050, L100.0500, L503.6030, L500.4100 ####[facility] [address] [place], [address] Hemoglobin A1c percentageOrd ered By: Ye Hoffman on 12-27-2024 HbA1c (Bld) [Mass fraction] 4.7 % <5.7 [facility] Comment on above: Normal < 5.7 % Predi abetic 5.7 - 6.4 % Diabetic >or= 6.5 % Please note range changes. Hemoglobin measurementOrdere d By: Ye Hoffman on 12-27-2024 Hemoglobin (Bld) [Mass/Vol] 12.7 g/dL 12.0-15.0 [facility] Immature granulocytes/100 WB C Auto (Bld)Ordered By: Ye Hoffman on 12-27-2024 Immature granulocytes/100 WBC (Bld) 0.400 % 0.0-0.9 [facility] Comment on above: IG% - Immature Granu locytes (promyelocytes, myelocytes and metamyelocytes) > 1% indicates that a LEFT SHIFT is Present. Iron measurement (mass/mass) Ordered By: Ye Hoffman on 12-27-2024 Iron (Unsp spec) [Mass/Mass] 68 ug/dL 50-170 [facility] Iron+Iron Binding Capacityon 12-27-2024 Iron [Mass/Vol] 68 ug/dL Normal 50-170 [facility] Comment on above: Order Comment: Order Date: 12/27/24Order Info: [id number] - CMPOrder Info: [id number] - LIPIDOrder Info: [id number] - TSHOrder Info: [id number] - IBCOrder Info: [id number] - MEG Performed By: #### L 501.9985, L501.9520, L503.6550, L500.4050, L100.0500, L503.6030, L500.4100 ####[facility] [address] [place], [place], [phone] IRON SATURATION 28.0 Normal 13-59 [facility] Comment on above: Order Comment: Order Date: 12/27/24Order Info: [id number] - CMPOrder Info: [id number] - LIPIDOrder Info: [id number] - TSHOrder Info: [id number] - IBCOrder Info: [id number] - MEG Performed By: #### L 501.9985, L501.9520, L503.6550, L500.4050, L100.0500, L503.6030, L500.4100 ####[facility] [address] [place], [address] TIBC 245 ug/dL Low 250-450 [facility] Comment on above: Order Comment: Order Date: 12/27/24Order Info: [id number] - CMPOrder Info: [id number] - LIPIDOrder Info: [id number] - TSHOrder Info: [id number] - IBCOrder Info: [id number] - MEG Performed By: #### L 501.9985, L501.9520, L503.6550, L500.4050, L100.0500, L503.6030, L500.4100 ####[facility] [address] [place], [address] UIBC 177 ug/dL Low 228-428 [facility] Comment on above: Order Comment: Order Date: 12/27/24Order Info: [id number] - CMPOrder Info: [id number] - LIPIDOrder Info: [id number] - TSHOrder Info: [id number] - IBCOrder Info: [id number] - MEG Performed By: #### L 501.9985, L501.9520, L503.6550, L500.4050, L100.0500, L503.6030, L500.4100 ####[facility] [address] [place], [place], [address] LDL calc ser/plasOrdered By: Ye Hoffman on 12-27-2024 Cholesterol in LDL [Mass/Vol] 77 mg/dL [facility] Comment on above: Qsauaduzix=288-744 m g/dL & Higher Ydoq=503 mg/dL or greaterFriedwald Equation for LDL-C Laboratory - Chemistry and C hemistry - challengeOrdered By: Ye Hoffman on 12-27-2024 AST [Catalytic activity/Vol] 21 U/L <32 [facility] Lipid Profileon 12-27-2024 CHOL:HDL 2.05 Normal [facility] Comment on above: Order Comment: Order Date: 12/27/24Order Info: [id number] - CMPOrder Info: [id number] - LIPIDOrder Info: [id number] - TSHOrder Info: [id number] - IBCOrder Info: [id number] - MEG Performed By: #### L 501.9985, L501.9520, L503.6550, L500.4050, L100.0500, L503.6030, L500.4100 ####[facility] [address] [place], [address] Cholesterol [Mass/Vol] 170 mg/dL Normal <=200 [facility] Comment on above: Order Comment: Order Date: 12/27/24Order Info: [id number] - CMPOrder Info: [id number] - LIPIDOrder Info: [id number] - TSHOrder Info: [id number] - IBCOrder Info: [id number] - MEG Result Comment: Chol esterol level, Desirable <200 mg/dLBorderline high cholesterol 200-239 mg/dLHigh cholesterol >=240 mg/dLRecommendations of the NCEP Adult Treatment Panel for thefollowing risk-cutoff thresholds for the [place] [facility]. Performed By: #### L 501.9985, L501.9520, L503.6550, L500.4050, L100.0500, L503.6030, L500.4100 ####[facility] [address] [place], [address] Cholesterol in HDL [Mass/Vol] 83 mg/dL Normal [facility] Comment on above: Order Comment: Order Date: 12/27/24Order Info: [id number] - CMPOrder Info: [id number] - LIPIDOrder Info: [id number] - TSHOrder Info: [id number] - IBCOrder Info: [id number] - MEG Result Comment: Sangeeta onal Cholesterol Education Program (NCEP) guidelines:<40 mg/dL: Low HDL-cholesterol (major risk factor for CHD)>= 60 mg/dL: High HDL-cholesterol (negative risk factor forCHD)HDL-cholesterol is affected by a number of factors, e.g.smoking, exercise, hormones, sex and age. Performed By: #### L 501.9985, L501.9520, L503.6550, L500.4050, L100.0500, L503.6030, L500.4100 ####[facility] [address] [place], [address] Cholesterol in LDL [Mass/Vol] 77 mg/dL Normal [facility] Comment on above: Order Comment: Order Date: 12/27/24Order Info: [id number] - CMPOrder Info: [id number] - LIPIDOrder Info: [id number] - TSHOrder Info: [id number] - IBCOrder Info: [id number] - MEG Result Comment: Bord izkwwm=051-391 mg/dL Higher Stgb=964 mg/dL or greaterFriedwald Equation for LDL-C Performed By: #### L 501.9985, L501.9520, L503.6550, L500.4050, L100.0500, L503.6030, L500.4100 ####[facility] [address] [place], [address] Cholesterol in VLDL [Mass/Vol] 10 mg/dL Normal 5-40 [facility] Comment on above: Order Comment: Order Date: 12/27/24Order Info: [id number] - CMPOrder Info: [id number] - LIPIDOrder Info: [id number] - TSHOrder Info: [id number] - IBCOrder Info: [id number] - MEG Performed By: #### L 501.9985, L501.9520, L503.6550, L500.4050, L100.0500, L503.6030, L500.4100 ####[facility] [address] [place], [address] Triglyceride [Mass/Vol] 51 mg/dL Normal [facility] Comment on above: Order Comment: Order Date: 12/27/24Order Info: [id number] - CMPOrder Info: [id number] - LIPIDOrder Info: [id number] - TSHOrder Info: [id number] - IBCOrder Info: [id number] - MEG Result Comment: The drugs N-Acetylcysteine and Metamizole may falselydepress this assay.Normal range: <150 mg/dLBorderline High: 150-199 mg/dLHigh: 200-499 mg/dLVery High: >500 mg/dL Performed By: #### L 501.9985, L501.9520, L503.6550, L500.4050, L100.0500, L503.6030, L500.4100 ####[facility] [address] [place], [address] MCV (mean corpuscular volume ) determinationOrdered By: Ye Hoffman on 12-27-2024 MCV (RBC) [Entitic vol] 98.2 fL 81-99 [facility] Mean corpuscular hemoglobin (MCH) determinationOrdered By: Ye Hoffman on 12-27-2024 MCH (RBC) [Entitic mass] 32.8 pg High 27.0-32.0 [facility] Mean corpuscular hemoglobin concentration (MCHC) determinationOrdered By: Ye Hoffman on 12-27-2024 MCHC (RBC) [Mass/Vol] 33.4 g/dL 32-36 [facility] Mean platelet volume determi nationOrdered By: Ye Hoffman on 12-27-2024 Platelet mean volume (Bld) [Entitic vol] 10.7 fL 6.2-12.0 [facility] Monocyte percentageOrdered B y: Ye Hoffman on 12-27-2024 Monocytes/100 WBC (Bld) 4.9 % 0-10 [facility] Neutrophil percentageOrdered By: Ye Hoffman on 12-27-2024 Neutrophils/100 WBC (Bld) 86.7 % High 47-70 [facility] No Panel InformationOrdered By: Ye Hoffman on 12-27-2024 Unsaturated Iron Binding Capacity 177 ug/dL Low 228-428 [facility] Nucleated red blood cell per centageOrdered By: Ye Hoffman on 12-27-2024 Nucleated RBC/100 WBC (Bld) [Ratio] 0 % 0-5 [facility] Platelet countOrdered By: Juliocesar Hoffman on 12-27-2024 Platelets (Bld) [#/Vol] 184 10*3/uL 150-450 [facility] Potassium measurement (mass/ volume)Ordered By: Ye Hoffman on 12-27-2024 Potassium (Unsp spec) [Mass/Vol] 3.7 mmol/L 3.3-5.1 [facility] RBC Auto (Bld) [#/Vol]Ordere d By: Ye Hoffman on 12-27-2024 RBC (Bld) [#/Vol] 3.87 10*6/uL Low 4.2-5.4 [facility] Screening total cholesterol/ high density lipoprotein (HDL) cholesterol ratioOrdered By: Ye Hoffman on 12-27-2024 Cholesterol.total/Cholest jamie in HDL [Mass ratio] 2.05 {ratio} [facility] Serum creatinine measurement (mass/volume)Ordered By: Ye Hoffman on 12-27-2024 Creatinine [Mass/Vol] 0.42 mg/dL Low 0.70-1.20 [facility] Serum globulin measurementOr dered By: Ye Hoffman on 12-27-2024 Globulin (S) [Mass/Vol] 2.6 g/dL 2.2-4.2 [facility] Serum glucose measurement (m ass/volume)Ordered By: Ye Hoffman on 12-27-2024 Glucose [Mass/Vol] 85 mg/dL 70-99 [facility] Serum or plasma alanine driver otransferase (ALT) measurementOrdered By: Ye Hoffman on 12-27-2024 ALT [Catalytic activity/Vol] 12 U/L <35 [facility] Serum or plasma albumin cedric urement (mass/volume)Ordered By: Ye Hoffman on 12-27-2024 Albumin [Mass/Vol] 4.2 g/dL 3.4-4.8 [facility] Serum or plasma albumin/glob ulin mass ratioOrdered By: Ye Hoffman on 12-27-2024 Albumin/Globulin [Mass ratio] 1.6 {ratio} 0.9-2.4 [facility] Serum or plasma alkaline judy sphatase measurementOrdered By: Ye Hoffman on 12-27-2024 ALP [Catalytic activity/Vol] 48 U/L 35-104 [facility] Serum or plasma calcium cedric urement (mass/volume)Ordered By: Ye Hoffman on 12-27-2024 Calcium [Mass/Vol] 9.2 mg/dL 7.6-11.0 [facility] Serum or plasma cholesterol in HDL measurement (mass/volume)Ordered By: Ye Hoffman on 12-27-2024 Cholesterol in HDL [Mass/Vol] 83 mg/dL >40 [facility] Comment on above: National Cholesterol Education Program (NCEP) guidelines:<40 mg/dL: Low HDL-cholesterol (major risk factor for CHD)>= 60 mg/dL: High HDL-cholesterol (negative risk factor for CHD)HDL-cholesterol is affected by a number of factors, e.g. smoking, exercise, hormones, sex and age. Serum or plasma cholesterol measurement (mass/volume)Ordered By: Ye Hoffman on 12-27-2024 Cholesterol [Mass/Vol] 170 mg/dL <201 [facility] Comment on above: Cholesterol level, D esirable <200 mg/dLBorderline high cholesterol 200-239 mg/dLHigh cholesterol >=240 mg/dLRecommendations of the NCEP Adult Treatment Panel for the following risk-cutoff thresholds for the [place] population. Serum or plasma ferritin pineda surement (mass/volume)Ordered By: Ye Hoffman on 12-27-2024 Ferritin [Mass/Vol] 30 ng/mL 22-378 [facility] Serum or plasma iron saturat ion measurement (mass fraction)Ordered By: Ye Hoffman on 12-27-2024 Iron saturation [Mass fraction] 28.0 % 13-59 [facility] Serum or plasma urea nitroge n measurement (mass/volume)Ordered By: Ye Hoffman on 12-27-2024 Urea nitrogen [Mass/Vol] 9 mg/dL 4-19 [facility] Sodium levelOrdered By: Don Hoffman on 12-27-2024 Sodium [Moles/Vol] 139 mmol/L 133-145 [facility] TSH DL <= 0.005 mIU/L QnOrde red By: Ye Hoffman on 12-27-2024 TSH Qn 2.020 uIU/mL 0.300-4.200 [facility] Thyroid Stim Hormone (TSH)on 12-27-2024 TSH 2.020 uIU/mL Normal 0.300-4.200 [facility] Comment on above: Order Comment: Order Date: 12/27/24Order Info: [id number] - CMPOrder Info: [id number] - LIPIDOrder Info: [id number] - TSHOrder Info: [id number] - IBCOrder Info: [id number] - MEG Performed By: #### L 501.9985, L501.9520, L503.6550, L500.4050, L100.0500, L503.6030, L500.4100 ####[facility] [address] [place], [address] Total proteinOrdered By: Nona Hoffman on 12-27-2024 Protein [Mass/Vol] 6.8 g/dL 5.9-8.4 [facility] Triglycerides measurementOrd ered By: Ye Hoffman on 12-27-2024 Triglyceride [Mass/Vol] 51 mg/dL <199 [facility] Comment on above: The drugs N-Acetylcy steine and Metamizole may falsely depress this assay. Normal range: <150 mg/dLBorderline High: 150-199 mg/dLHigh: 200-499 mg/dLVery High: >500 mg/dL White blood cell (WBC) count Ordered By: Ye Hoffman on 12-27-2024 WBC (Bld) [#/Vol] 8.4 10*3/uL 4.4-11.0 [facility] Absolute lymphocyte countOrd ered By: Sukumar Velazquez on 07-21-2024 Lymphocytes Auto (Unsp spec) [#/Vol] 1.05 10*3/uL 0.83-4.51 [facility] Absolute neutrophil countOrd ered By: Sukumar Velazquez on 07-21-2024 Neutrophils (Bld) [#/Vol] 1.8 10*3/uL Low 2.0-7.7 [facility] Anion gap in Serum or Plasma Ordered By: Sukumar Velazquez on 07-21-2024 Anion gap [Moles/Vol] 9 mmol/L 5-15 [facility] Automated lymphocyte count a s percentage of total leukocytesOrdered By: Sukumar Velazquez on 07-21-2024 Lymphocytes/100 WBC Auto (Unsp spec) 28.5 % 19-41 [facility] BUN/creatinine ratioOrdered By: Mayajeffrydeedeesoumya Stauffercobyissa on 07-21-2024 Urea nitrogen/Creatinine [Mass ratio] 47.2 mg/mg High 10-20 [facility] Basophil percentageOrdered B y: Seradeedeesoumya Stauffercobyissa on 07-21-2024 Basophils/100 WBC (Bld) 0.5 % 0-1 [facility] Carbon dioxide, total [Moles /volume] in Central venous bloodOrdered By: jeffrydeedeesoumya Stauffercobyissa on 07-21-2024 CO2 [Moles/Vol] 26.1 mmol/L 21.0-32.0 [facility] Chloride assayOrdered By: Maya bridgersoumya Stauffercobyissa on 07-21-2024 Chloride [Moles/Vol] 102 mmol/L 98-108 [facility] Eosinophil percentageOrdered By: Mayajeffrylouisburgsoumya Stauffercobyissa on 07-21-2024 Eosinophils/100 WBC (Bld) 7.6 % High 0-5 [facility] Erythrocyte distribution wid th ratioOrdered By: jeffrylouisburgsoumya Ehcobyissa on 07-21-2024 Erythrocyte distribution width (RBC) [Ratio] 12.1 % 11.6-14.6 [facility] Erythrocyte distribution wid th standard deviationOrdered By: [facility] Hospit[facility] Ehcobyissa on 07-21-2024 Erythrocyte distribution width (RBC) [Ratio] 43.4 fl 35.1-43.9 [facility] Glomerular filtration rate ( GFR) estimation/1.73 sq m using serum, plasma, or whole bOrdered By: Sukumar Velazquez on 07-21-2024 GFR/1.73 sq M.predicted among non-blacks MDRD (S/P/Bld) [Vol rate/Area] 99 mL/min/{1.73_m2} >60 [facility] Comment on above: mL/min/1.73m2 CKD-EP I Creatinine Equation (2020) Hematocrit Auto (Bld) [Volum e fraction]Ordered By: Sukumar Velazquez on 07-21-2024 Hematocrit (Bld) [Volume fraction] 36.2 % Low 37-47 [facility] Hemoglobin measurementOrdere d By: Sukumar Velazquez on 07-21-2024 Hemoglobin (Bld) [Mass/Vol] 12.1 g/dL 12.0-15.0 [facility] Immature granulocytes/100 WB C Auto (Bld)Ordered By: Sukumar Velazquez on 07-21-2024 Immature granulocytes/100 WBC (Bld) 0.300 % 0.0-0.9 [facility] Comment on above: IG% - Immature Granu locytes (promyelocytes, myelocytes and metamyelocytes) > 1% indicates that a LEFT SHIFT is Present. MCV (mean corpuscular volume ) determinationOrdered By: Sukumar Velazquez on 07-21-2024 MCV (RBC) [Entitic vol] 96.8 fL 81-99 [facility] Mean corpuscular hemoglobin (MCH) determinationOrdered By: Seralouisburgsoumya Velazquez on 07-21-2024 MCH (RBC) [Entitic mass] 32.4 pg High 27.0-32.0 [facility] Mean corpuscular hemoglobin concentration (MCHC) determinationOrdered By: jeffrylouisburgsoumya Velazquez on 07-21-2024 MCHC (RBC) [Mass/Vol] 33.4 g/dL 32-36 [facility] Mean platelet volume determi nationOrdered By: Sukumar Velazquez on 07-21-2024 Platelet mean volume (Bld) [Entitic vol] 10.6 fL 6.2-12.0 [facility] Monocyte percentageOrdered B y: Sukumar Velazquez on 07-21-2024 Monocytes/100 WBC (Bld) 13.3 % High 0-10 [facility] Neutrophil percentageOrdered By: rosie Velazquez on 07-21-2024 Neutrophils/100 WBC (Bld) 49.8 % 47-70 [facility] Nucleated red blood cell per centageOrdered By: Sukumar Velazquez on 07-21-2024 Nucleated RBC/100 WBC (Bld) [Ratio] 0 % 0-5 [facility] Platelet countOrdered By: Maya Velazquez on 07-21-2024 Platelets (Bld) [#/Vol] 195 10*3/uL 150-450 [facility] Potassium measurement (mass/ volume)Ordered By: Sukumar Velazquez on 07-21-2024 Potassium (Unsp spec) [Mass/Vol] 4.4 mmol/L 3.3-5.1 [facility] RBC Auto (Bld) [#/Vol]Ordere d By: Sukumar Velazquez on 07-21-2024 RBC (Bld) [#/Vol] 3.74 10*6/uL Low 4.2-5.4 [facility] Serum creatinine measurement (mass/volume)Ordered By: Sukumar Velazquez on 07-21-2024 Creatinine [Mass/Vol] 0.50 mg/dL Low 0.70-1.20 [facility] Serum glucose measurement (m ass/volume)Ordered By: Sukumar Velazquez on 07-21-2024 Glucose [Mass/Vol] 96 mg/dL 70-99 [facility] Serum or plasma calcium cedric urement (mass/volume)Ordered By: Sukumar Velazquez on 07-21-2024 Calcium [Mass/Vol] 9.2 mg/dL 7.6-11.0 [facility] Serum or plasma urea nitroge n measurement (mass/volume)Ordered By: Sukumar Velazquez on 07-21-2024 Urea nitrogen [Mass/Vol] 24 mg/dL High 4-19 [facility] Sodium levelOrdered By: Sera Velazquez on 07-21-2024 Sodium [Moles/Vol] 137 mmol/L 133-145 [facility] White blood cell (WBC) count Ordered By: Sukumar Velazquez on 07-21-2024 WBC (Bld) [#/Vol] 3.7 10*3/uL Low 4.4-11.0 [facility] Wound Ctr History AND Physic bret 07-18-2024 Wound Ctr History & Physical Normal [facility] Absolute lymphocyte countOrd ered By: Sukumar Velazquez on 07-14-2024 Lymphocytes Auto (Unsp spec) [#/Vol] 0.89 10*3/uL 0.83-4.51 [facility] [facility] Absolute neutrophil countOrd ered By: Sukumar Velazquez on 07-14-2024 Neutrophils (Bld) [#/Vol] 2.0 10*3/uL 2.0-7.7 [facility] Anion gap in Serum or Plasma Ordered By: Sukumar Velazquez on 07-14-2024 Anion gap [Moles/Vol] 8 mmol/L 5-15 [facility] Automated lymphocyte count a s percentage of total leukocytesOrdered By: Sukumar Velazquez on 07-14-2024 Lymphocytes/100 WBC Auto (Unsp spec) 24.7 % 19-41 [facility] BUN/creatinine ratioOrdered By: Sukumar Velazquez on 07-14-2024 Urea nitrogen/Creatinine [Mass ratio] 65.0 mg/mg High 10-20 [facility] Basophil percentageOrdered B y: Sukumar Velazquez on 07-14-2024 Basophils/100 WBC (Bld) 0.3 % 0-1 [facility] Carbon dioxide, total [Moles /volume] in Central venous bloodOrdered By: Sukumar Velazquez on 07-14-2024 CO2 [Moles/Vol] 27.5 mmol/L 21.0-32.0 [facility] Chloride assayOrdered By: Maya Velazquez on 07-14-2024 Chloride [Moles/Vol] 103 mmol/L 98-108 [facility] Eosinophil percentageOrdered By: Sukumar Velazquez on 07-14-2024 Eosinophils/100 WBC (Bld) 6.4 % High 0-5 [facility] Erythrocyte distribution wid th ratioOrdered By: Sukumar Velazquez on 07-14-2024 Erythrocyte distribution width (RBC) [Ratio] 12.5 % 11.6-14.6 [facility] Erythrocyte distribution wid th standard deviationOrdered By: rosie Velazquez on 07-14-2024 Erythrocyte distribution width (RBC) [Ratio] 44.9 fl High 35.1-43.9 [facility] Glomerular filtration rate ( GFR) estimation/1.73 sq m using serum, plasma, or whole bOrdered By: Sukumar Velazquez on 07-14-2024 GFR/1.73 sq M.predicted among non-blacks MDRD (S/P/Bld) [Vol rate/Area] 100 mL/min/{1.73_m2} >60 [facility] Comment on above: mL/min/1.73m2 CKD-EP I Creatinine Equation (2020) Hematocrit Auto (Bld) [Volum e fraction]Ordered By: Sukumar Velazquez on 07-14-2024 Hematocrit (Bld) [Volume fraction] 36.6 % Low 37-47 [facility] Hemoglobin measurementOrdere d By: Sukumar Velazquez on 07-14-2024 Hemoglobin (Bld) [Mass/Vol] 12.0 g/dL 12.0-15.0 [facility] Immature granulocytes/100 WB C Auto (Bld)Ordered By: Sukumar Velazquez on 07-14-2024 Immature granulocytes/100 WBC (Bld) 0.300 % 0.0-0.9 [facility] Comment on above: IG% - Immature Granu locytes (promyelocytes, myelocytes and metamyelocytes) > 1% indicates that a LEFT SHIFT is Present. MCV (mean corpuscular volume ) determinationOrdered By: Sukumar Velazquez on 07-14-2024 MCV (RBC) [Entitic vol] 97.9 fL 81-99 [facility] Mean corpuscular hemoglobin (MCH) determinationOrdered By: Sukumar Velazquez on 07-14-2024 MCH (RBC) [Entitic mass] 32.1 pg High 27.0-32.0 [facility] Mean corpuscular hemoglobin concentration (MCHC) determinationOrdered By: Sukumar Velazquez on 07-14-2024 MCHC (RBC) [Mass/Vol] 32.8 g/dL 32-36 [facility] Mean platelet volume determi nationOrdered By: Sukumar Velazquez on 07-14-2024 Platelet mean volume (Bld) [Entitic vol] 10.6 fL 6.2-12.0 [facility] Monocyte percentageOrdered B y: Sukumar Velazquez on 07-14-2024 Monocytes/100 WBC (Bld) 13.6 % High 0-10 [facility] Neutrophil percentageOrdered By: Sukumar Velazquez on 07-14-2024 Neutrophils/100 WBC (Bld) 54.7 % 47-70 [facility] Nucleated red blood cell per centageOrdered By: Mayajeffrybela Ehcobyissa on 07-14-2024 Nucleated RBC/100 WBC (Bld) [Ratio] 0 % 0-5 [facility] Platelet countOrdered By: Maya bridgersoumya Stauffercobyissa on 07-14-2024 Platelets (Bld) [#/Vol] 207 10*3/uL 150-450 [facility] Potassium measurement (mass/ volume)Ordered By: Sukumar Velazquez on 07-14-2024 Potassium (Unsp spec) [Mass/Vol] 4.3 mmol/L 3.3-5.1 [facility] RBC Auto (Bld) [#/Vol]Ordere d By: Dennisesoumya Stauffercobyissa on 07-14-2024 RBC (Bld) [#/Vol] 3.74 10*6/uL Low 4.2-5.4 [facility] Serum creatinine measurement (mass/volume)Ordered By: Sukumar Stauffercobyissa on 07-14-2024 Creatinine [Mass/Vol] 0.49 mg/dL Low 0.70-1.20 [facility] Serum glucose measurement (m ass/volume)Ordered By: Mayarosie Velazquez on 07-14-2024 Glucose [Mass/Vol] 98 mg/dL 70-99 [facility] Serum or plasma calcium cedric urement (mass/volume)Ordered By: Sukumar Stauffercobyissa on 07-14-2024 Calcium [Mass/Vol] 9.3 mg/dL 7.6-11.0 [facility] Serum or plasma urea nitroge n measurement (mass/volume)Ordered By: Sukumar Velazquez on 07-14-2024 Urea nitrogen [Mass/Vol] 32 mg/dL High 4-19 [facility] Sodium levelOrdered By: Mayajeffry bela Caroline on 07-14-2024 Sodium [Moles/Vol] 139 mmol/L 133-145 [facility] White blood cell (WBC) count Ordered By: Sukumar Velazquez 07-14-2024 WBC (Bld) [#/Vol] 3.6 10*3/uL Low 4.4-11.0 [facility] Dexa Bone Density Studyon Dexa Bone Density Study Normal [facility] SCRN MAMM (CAD)W/JD BILATo n 07-12-2024 SCRN MAMM (CAD)W/JD BILAT Normal [facility] Wound Ctr History AND Physic bret 07-11-2024 Wound Ctr History & Physical Normal [facility] W[facility] Ctr History & Physical Normal [facility] Absolute lymphocyte countOrd ered By: Sukumar Velazquez on 07-07-2024 Lymphocytes Auto (Unsp spec) [#/Vol] 0.95 10*3/uL 0.83-4.51 [facility] Absolute neutrophil countOrd ered By: Sukumar Velazquez on 07-07-2024 Neutrophils (Bld) [#/Vol] 3.1 10*3/uL 2.0-7.7 [facility] Anion gap in Serum or Plasma Ordered By: Sukumar Velazquez on 07-07-2024 Anion gap [Moles/Vol] 9 mmol/L 5-15 [facility] Automated lymphocyte count a s percentage of total leukocytesOrdered By: Sukumar Velazquez on 07-07-2024 Lymphocytes/100 WBC Auto (Unsp spec) 19.8 % 19-41 [facility] BUN/creatinine ratioOrdered By: Sukumar Velazquez on 07-07-2024 Urea nitrogen/Creatinine [Mass ratio] 58.3 mg/mg High 10-20 [facility] Basophil percentageOrdered B y: Sukumar Velazquez on 07-07-2024 Basophils/100 WBC (Bld) 0.2 % 0-1 [facility] Carbon dioxide, total [Moles /volume] in Central venous bloodOrdered By: Sukumar Velazquez on 07-07-2024 CO2 [Moles/Vol] 28.2 mmol/L 21.0-32.0 [facility] Chloride assayOrdered By: Maya Velazquez on 07-07-2024 Chloride [Moles/Vol] 102 mmol/L 98-108 [facility] Eosinophil percentageOrdered By: Sukumar Velazquez on 07-07-2024 Eosinophils/100 WBC (Bld) 5.2 % High 0-5 [facility] Erythrocyte distribution wid th ratioOrdered By: Sukumar Velazquez on 07-07-2024 Erythrocyte distribution width (RBC) [Ratio] 12.3 % 11.6-14.6 [facility] Erythrocyte distribution wid th standard deviationOrdered By: Sukumar Velazquez on 07-07-2024 Erythrocyte distribution width (RBC) [Ratio] 44.6 fl High 35.1-43.9 [facility] Glomerular filtration rate ( GFR) estimation/1.73 sq m using serum, plasma, or whole bOrdered By: Seralouisburgsoumya Velazquez on 07-07-2024 GFR/1.73 sq M.predicted among non-blacks MDRD (S/P/Bld) [Vol rate/Area] 99 mL/min/{1.73_m2} >60 [facility] Comment on above: mL/min/1.73m2 CKD-EP I Creatinine Equation (2020) Hematocrit Auto (Bld) [Volum e fraction]Ordered By: Sukumar Velazquez on 07-07-2024 Hematocrit (Bld) [Volume fraction] 36.4 % Low 37-47 [facility] Hemoglobin measurementOrdere d By: Sukumar Velazquez on 07-07-2024 Hemoglobin (Bld) [Mass/Vol] 12.0 g/dL 12.0-15.0 [facility] Immature granulocytes/100 WB C Auto (Bld)Ordered By: Sukumar Velazquez on 07-07-2024 Immature granulocytes/100 WBC (Bld) 0.200 % 0.0-0.9 [facility] Comment on above: IG% - Immature Granu locytes (promyelocytes, myelocytes and metamyelocytes) > 1% indicates that a LEFT SHIFT is Present. MCV (mean corpuscular volume ) determinationOrdered By: Sukumar Velazquez on 07-07-2024 MCV (RBC) [Entitic vol] 98.1 fL 81-99 [facility] Mean corpuscular hemoglobin (MCH) determinationOrdered By: Sukumar Velazquez 07-07-2024 MCH (RBC) [Entitic mass] 32.3 pg High 27.0-32.0 [facility] Mean corpuscular hemoglobin concentration (MCHC) determinationOrdered By: Sukumar Velazquez on 07-07-2024 MCHC (RBC) [Mass/Vol] 33.0 g/dL 32-36 [facility] Mean platelet volume determi nationOrdered By: Sukumar Velazquez on 07-07-2024 Platelet mean volume (Bld) [Entitic vol] 10.7 fL 6.2-12.0 [facility] Monocyte percentageOrdered B y: Sukumar Velazquez on 07-07-2024 Monocytes/100 WBC (Bld) 10.4 % High 0-10 [facility] Neutrophil percentageOrdered By: Sukumar Velazquez on 07-07-2024 Neutrophils/100 WBC (Bld) 64.2 % 47-70 [facility] Nucleated red blood cell per centageOrdered By: Sukumar Velazquez on 07-07-2024 Nucleated RBC/100 WBC (Bld) [Ratio] 0 % 0-5 [facility] Platelet countOrdered By: Maya Velazquez on 07-07-2024 Platelets (Bld) [#/Vol] 201 10*3/uL 150-450 [facility] Potassium measurement (mass/ volume)Ordered By: Sukumar Velazquez on 07-07-2024 Potassium (Unsp spec) [Mass/Vol] 4.3 mmol/L 3.3-5.1 [facility] RBC Auto (Bld) [#/Vol]Ordere d By: Sukumar Velazquez on 07-07-2024 RBC (Bld) [#/Vol] 3.71 10*6/uL Low 4.2-5.4 [facility] Serum creatinine measurement (mass/volume)Ordered By: Sukumar Velazquez on 07-07-2024 Creatinine [Mass/Vol] 0.51 mg/dL Low 0.70-1.20 [facility] Serum glucose measurement (m ass/volume)Ordered By: Sukumar Velazquez on 07-07-2024 Glucose [Mass/Vol] 98 mg/dL 70-99 [facility] Serum or plasma calcium cedric urement (mass/volume)Ordered By: Mayajeffrydeedeesoumya Stauffercobyissa on 07-07-2024 Calcium [Mass/Vol] 9.2 mg/dL 7.6-11.0 [facility] Serum or plasma urea nitroge n measurement (mass/volume)Ordered By: Mayajeffrydeedeesoumya Stauffercobyissa on 07-07-2024 Urea nitrogen [Mass/Vol] 30 mg/dL High 4-19 [facility] Sodium levelOrdered By: Sera cramer Ehcobyissa on 07-07-2024 Sodium [Moles/Vol] 138 mmol/L 133-145 [facility] White blood cell (WBC) count Ordered By: [facility] on 07-07-2024 WBC (Bld) [#/Vol] 4.8 10*3/uL 4.4-11.0 [facility] Absolute lymphocyte countOrd ered By: Ginoarmando Orlando on 07-05-2024 Lymphocytes Auto (Unsp spec) [#/Vol] 0.85 10*3/uL 0.83-4.51 [facility] Absolute neutrophil countOrd ered By: [facility] on 07-05-2024 Neutrophils (Bld) [#/Vol] 4.8 10*3/uL 2.0-7.7 [facility] Automated lymphocyte count a s percentage of total leukocytesOrdered By: Fransisca Orlando on 07-05-2024 Lymphocytes/100 WBC Auto (Unsp spec) 13.4 % Low 19-41 [facility] Basophil percentageOrdered B y: Fransisca Orlando on 07-05-2024 Basophils/100 WBC (Bld) 0.3 % 0-1 [facility] CBC W/Diff, Automatedon Absolute Lymph 0.85 X10 3/uL Normal 0.83-4.51 [facility] Comment on above: Performed By: #### L 100.9950, [id number], L100.0100, L503.6030 ####[facility] [address] [place], [place], [id number] Absolute Neut 4.8 X10 3/uL Normal 2.0-7.7 [facility] Comment on above: Performed By: #### L 100.9950, [id number], L100.0100, L503.6030 ####[facility] [address] [place], [address] Basophils/100 WBC (Bld) 0.3 % Normal 0-1 [facility] Comment on above: Performed By: #### L 100.9950, [id number], L100.0100, L503.6030 ####[facility] [address] [place], [address] Eosinophils/100 WBC (Bld) 3.0 % Normal 0-5 [facility] Comment on above: Performed By: #### L 100.9950, [id number], L100.0100, L503.6030 ####[facility] [address] [place], [address] Erythrocyte distribution width (RBC) [Ratio] 12.2 % Normal 11.6-14.6 [facility] Comment on above: Performed By: #### L 100.9950, [id number], L100.0100, [id number] ####[facility] [address] [place], [address] Hematocrit (Bld) [Volume fraction] 36.1 % Low 37-47 [facility] Comment on above: Performed By: #### L 100.9950, [id number], L100.0100, L503.6030 ####[facility] [address] [place], [address] Hemoglobin (Bld) [Mass/Vol] 12.1 g/dL Normal 12.0-15.0 [facility] Comment on above: Performed By: #### L 100.9950, [id number], L100.0100, L503.6030 ####[facility] [address] [place], [address] IG% 0.200 Normal 0.0-0.9 [facility] Comment on above: Result Comment: IG% - Immature Granulocytes (promyelocytes, myelocytes andmetamyelocytes) > 1% indicates that a LEFT SHIFT is Present. Performed By: #### L 100.9950, L503.6550, L100.0100, L503.6030 ####[facility] [address] [place], [address] Lymphocytes/100 WBC (Bld) 13.4 % Low 19-41 [facility] Comment on above: Performed By: #### L 100.9950, [id number], L100.0100, [id number] ####[facility] [address] [place], [address] MCH (RBC) [Entitic mass] 32.6 pg High 27.0-32.0 [facility] Comment on above: Performed By: #### L 100.9950, [id number], L100.0100, L503.6030 ####[facility] [address] [place], [address] MCHC (RBC) [Mass/Vol] 33.5 g/dL Normal 32-36 [facility] Comment on above: Performed By: #### L 100.9950, L503.6550, L100.0100, L503.6030 ####[facility] [address] [place], [address] MCV (RBC) [Entitic vol] 97.3 fL Normal 81-99 [facility] Comment on above: Performed By: #### L 100.9950, [id number], L100.0100, L503.6030 ####[facility] [address] [place], [address] Monocytes/100 WBC (Bld) 7.9 % Normal 0-10 [facility] Comment on above: Performed By: #### L 100.9950, [id number], L100.0100, [id number] ####[facility] [address] [place], [address] Neutrophils/100 WBC (Bld) 75.2 % High 47-70 [facility] Comment on above: Performed By: #### L 100.9950, [id number], L100.0100, [id number] ####[facility] [address] [place], [address] Nucleated RBC (Bld) [#/Vol] 0 10*3/uL Normal 0-5 [facility] Comment on above: Performed By: #### L 100.9950, L503.6550, L100.0100, L503.6030 ####[facility] [address] [place], [address] Platelet mean volume (Bld) [Entitic vol] 10.1 fL Normal 6.2-12.0 [facility] Comment on above: Performed By: #### L 100.9950, [id number], L100.0100, L503.6030 ####[facility] [address] [place], [address] Platelets (Bld) [#/Vol] 204 10*3/uL Normal 150-450 [facility] Comment on above: Performed By: #### L 100.9950, [id number], L100.0100, L503.6030 ####[facility] [address] [place], [address] RBC (Bld) [#/Vol] 3.71 10*6/uL Low 4.2-5.4 [facility] Comment on above: Performed By: #### L 100.9950, [id number], L100.0100, L503.6030 ####[facility] [address] [place], [address] RDW SD 44.0 fl High 35.1-43.9 [facility] Comment on above: Performed By: #### L 100.9950, [id number], L100.0100, L503.6030 ####[facility] [address] [place], [address] WBC (Bld) [#/Vol] 6.3 10*3/uL Normal 4.4-11.0 [facility] Comment on above: Performed By: #### L 100.9950, [id number], L100.0100, [id number] ####[facility] [address] [place], [address] Eosinophil percentageOrdered By: Fransisca Orlando on 07-05-2024 Eosinophils/100 WBC (Bld) 3.0 % 0-5 [facility] Erythrocyte distribution wid th ratioOrdered By: [facility] on 07-05-2024 Erythrocyte distribution width (RBC) [Ratio] 12.2 % 11.6-14.6 [facility] Erythrocyte distribution wid th standard deviationOrdered By: [facility] on 07-05-2024 Erythrocyte distribution width (RBC) [Ratio] 44.0 fl High 35.1-43.9 [facility] Ferritinon 07-05-2024 Ferritin [Mass/Vol] 33 ng/mL Normal 22-378 [facility] Comment on above: Performed By: #### L 100.9950, L503.6550, L100.0100, L503.6030 ####[facility] [address] [place], [address] Hematocrit Auto (Bld) [Volum e fraction]Ordered By: Fransisca Orlando on 07-05-2024 Hematocrit (Bld) [Volume fraction] 36.1 % Low 37-47 [facility] Hemoglobin measurementOrdere d By: Fransisca Orlando on 07-05-2024 Hemoglobin (Bld) [Mass/Vol] 12.1 g/dL 12.0-15.0 [facility] Immature granulocytes/100 WB C Auto (Bld)Ordered By: [facility] on 07-05-2024 Immature granulocytes/100 WBC (Bld) 0.200 % 0.0-0.9 [facility] Comment on above: IG% - Immature Granu locytes (promyelocytes, myelocytes and metamyelocytes) > 1% indicates that a LEFT SHIFT is Present. Iron measurement (mass/mass) Ordered By: Fransisca Orlando on 07-05-2024 Iron (Unsp spec) [Mass/Mass] 114 ug/dL 50-170 [facility] Iron+Iron Binding Capacityon 07-05-2024 TIBC 231 ug/dL Low 250-450 [facility] Comment on above: Performed By: #### L 100.9950, L503.6550, L100.0100, L503.6030 ####[facility] [address] [place], [address] MCV (mean corpuscular volume ) determinationOrdered By: Fransisca Orlando on 07-05-2024 MCV (RBC) [Entitic vol] 97.3 fL 81-99 [facility] Mean corpuscular hemoglobin (MCH) determinationOrdered By: Fransisca Orlando on 07-05-2024 MCH (RBC) [Entitic mass] 32.6 pg High 27.0-32.0 [facility] Mean corpuscular hemoglobin concentration (MCHC) determinationOrdered By: Fransisca Orlando on 07-05-2024 MCHC (RBC) [Mass/Vol] 33.5 g/dL 32-36 [facility] Mean platelet volume determi nationOrdered By: [facility] on 07-05-2024 Platelet mean volume (Bld) [Entitic vol] 10.1 fL 6.2-12.0 [facility] Monocyte percentageOrdered B y: Fransisca Orlando on 07-05-2024 Monocytes/100 WBC (Bld) 7.9 % 0-10 [facility] Neutrophil percentageOrdered By: [facility] on 07-05-2024 Neutrophils/100 WBC (Bld) 75.2 % High 47-70 [facility] No Panel InformationOrdered By: Fransisca Orlando on 07-05-2024 Unsaturated Iron Binding Capacity 117 ug/dL Low 228-428 [facility] 117 ug/dL Low 228-428 [facility] Nucleated red blood cell per centageOrdered By: Fransisca Orlando on 07-05-2024 Nucleated RBC/100 WBC (Bld) [Ratio] 0 % 0-5 [facility] Oncology Visit Reporton 030 Oncology Visit Report Normal [facility] Platelet countOrdered By: Adan Orlando on 07-05-2024 Platelets (Bld) [#/Vol] 204 10*3/uL 150-450 [facility] RBC Auto (Bld) [#/Vol]Ordere d By: Fransisca Orlando on 07-05-2024 RBC (Bld) [#/Vol] 3.71 10*6/uL Low 4.2-5.4 [facility] Retic Panelon 07-05-2024 IM RET FRACTION 8.30 Normal 3.00-15.90 [facility] Comment on above: Performed By: #### L 100.9950, L503.6550, L100.0100, L503.6030 ####[facility] [address] [place], [address] RET-HE 34.9 pg Normal 30-35 [facility] Comment on above: Performed By: #### L 100.9950, L503.6550, L100.0100, L503.6030 ####[facility] [address] [place], [address] Retic Count 1.72 High 0.5-1.5 [facility] Comment on above: Performed By: #### L 100.9950, L503.6550, L100.0100, L503.6030 ####[facility] [address] [place], [address] Reticulocyte hemoglobin equi valent (RET-He) measurementOrdered By: Fransisca Orlando on 07-05-2024 Hemoglobin (Reticulocytes) [Entitic mass] 34.9 pg 30-35 [facility] Reticulocytes Auto (Bld) [#/ Vol]Ordered By: Fransisca Orlando on 07-05-2024 Reticulocytes/100 RBC (Bld) 1.72 % High 0.5-1.5 [facility] Serum or plasma ferritin pineda surement (mass/volume)Ordered By: Fransisca Orlando on 07-05-2024 Ferritin [Mass/Vol] 33 ng/mL 22-378 [facility] Serum or plasma iron saturat ion measurement (mass fraction)Ordered By: Fransisca Orlando on 07-05-2024 Iron saturation [Mass fraction] 49.4 % 15.0-55.0 [facility] Comment on above: Previous reported re sult: 49.0 %Edited by: TREVA on 07/05/24:1659 AMENDED REPORT 07/05/24 1659 IRON SATURATION previously reported as: 49.0 % White blood cell (WBC) count Ordered By: Fransisca Orlando on 07-05-2024 WBC (Bld) [#/Vol] 6.3 10*3/uL 4.4-11.0 [facility] Absolute lymphocyte countOrd ered By: Sukumar Velazquez on 06-30-2024 Lymphocytes Auto (Unsp spec) [#/Vol] 0.87 10*3/uL 0.83-4.51 [facility] Automated lymphocyte count a s percentage of total leukocytesOrdered By: Sukumar Velazquez on 06-30-2024 Lymphocytes/100 WBC Auto (Unsp spec) 21.8 % 19-41 [facility] BUN/creatinine ratioOrdered By: Sukumar Velazquez on 06-30-2024 Urea nitrogen/Creatinine [Mass ratio] 65.7 mg/mg High 10-20 [facility] Basophil percentageOrdered B y: Sukumar Velazquez on 06-30-2024 Basophils/100 WBC (Bld) 0.5 % 0-1 [facility] Carbon dioxide measurementOr dered By: Sukumar Velazquez on 06-30-2024 CO2 [Moles/Vol] 28.8 mmol/L 22.0-29.0 [facility] Chloride measurementOrdered By: Sukumar Velazquez on 06-30-2024 Chloride [Moles/Vol] 104 mmol/L 96-108 [facility] Eosinophil percentageOrdered By: Sukumar Velazquez on 06-30-2024 Eosinophils/100 WBC (Bld) 5.5 % High 0-5 [facility] Erythrocyte distribution wid th ratioOrdered By: Sukumar Velazquez on 06-30-2024 Erythrocyte distribution width (RBC) [Ratio] 12.3 % 11.6-14.6 [facility] Erythrocyte distribution wid th standard deviationOrdered By: Sukumar Velazquez on 06-30-2024 Erythrocyte distribution width (RBC) [Ratio] 44.6 fl High 35.1-43.9 [facility] Glomerular filtration rate ( GFR) estimation/1.73 sq m using serum, plasma, or whole bOrdered By: Seralouisburgsoumya Velazquez on 06-30-2024 GFR/1.73 sq M.predicted among non-blacks MDRD (S/P/Bld) [Vol rate/Area] 98 mL/min/{1.73_m2} >60 [facility] Hematocrit Auto (Bld) [Volum e fraction]Ordered By: Sukumar Velazquez 06-30-2024 Hematocrit (Bld) [Volume fraction] 34.1 % Low 37-47 [facility] Hemoglobin measurementOrdere d By: Sukumar Velazquez on 06-30-2024 Hemoglobin (Bld) [Mass/Vol] 11.2 g/dL Low 12.0-15.0 [facility] Immature granulocytes/100 WB C Auto (Bld)Ordered By: Sukumar Velazquez on 06-30-2024 Immature granulocytes/100 WBC (Bld) 0.500 % 0.0-0.9 [facility] MCV (mean corpuscular volume ) determinationOrdered By: Sukumar Velazquez 06-30-2024 MCV (RBC) [Entitic vol] 99.1 fL High 81-99 [facility] Mean corpuscular hemoglobin (MCH) determinationOrdered By: Sukumar Velazquez 06-30-2024 MCH (RBC) [Entitic mass] 32.6 pg High 27.0-32.0 [facility] Monocyte percentageOrdered B y: Sukumar Velazquez on 06-30-2024 Monocytes/100 WBC (Bld) 13.8 % High 0-10 [facility] Neutrophil percentageOrdered By: Mayajeffrybela Ehayala on 06-30-2024 Neutrophils/100 WBC (Bld) 57.9 % 47-70 [facility] Platelet countOrdered By: Maya rosie Ehayala on 06-30-2024 Platelets (Bld) [#/Vol] 187 10*3/uL 150-450 [facility] RBC Auto (Bld) [#/Vol]Ordere d By: Sukumar Ehayala on 06-30-2024 RBC (Bld) [#/Vol] 3.44 10*6/uL Low 4.2-5.4 [facility] Serum glucose measurement (m ass/volume)Ordered By: Sukumar Velazquez on 06-30-2024 Glucose [Mass/Vol] 99 mg/dL 70-99 [facility] Serum or plasma anion gap de termination (moles/volume)Ordered By: Sukumar Velazquez on 06-30-2024 Anion gap [Moles/Vol] 7 mmol/L 5-15 [facility] Serum or plasma calcium cedric urement (mass/volume)Ordered By: Sukumar Velazquez on 06-30-2024 Calcium [Mass/Vol] 9.6 mg/dL 7.6-11.0 [facility] Serum or plasma creatinine m easurement (moles/volume)Ordered By: Sukumar Velazquez on 06-30-2024 Creatinine [Moles/Vol] 0.5 mg/dL Low 0.6-1.0 [facility] Serum or plasma potassium me asurementOrdered By: Sukumar Velazquez on 06-30-2024 Potassium [Moles/Vol] 4.2 mmol/L 3.3-5.1 [facility] Serum or plasma sodium measu rement (moles/volume)Ordered By: Sukumar Velazquez on 06-30-2024 Sodium [Moles/Vol] 140 mmol/L 133-145 [facility] Serum or plasma urea nitroge n measurement (mass/volume)Ordered By: Sukumar Velazquez on 06-30-2024 Urea nitrogen [Mass/Vol] 34 mg/dL High 4-19 [facility] White blood cell (WBC) count Ordered By: Sukumar Velazquez on 06-30-2024 WBC (Bld) [#/Vol] 4.0 10*3/uL Low 4.4-11.0 [facility] Culture, Anaerobic Any Sourc nel 06-25-2024 CUAN Normal [facility] Comment on above: Performed By: #### M 100.3000, M100.4001, M100.1999 ####[facility] [address] [place], [address] Wound Cultureon 06-25-2024 WC Normal [facility] Comment on above: Performed By: #### M 100.3000, M100.4001, M100.1999 ####[facility] [address] [place], [address] Absolute lymphocyte countOrd ered By: Sukumar Velazquez on 06-23-2024 Lymphocytes Auto (Unsp spec) [#/Vol] 1.12 10*3/uL 0.83-4.51 [facility] Automated lymphocyte count a s percentage of total leukocytesOrdered By: Sukumar Velazquez on 06-23-2024 Lymphocytes/100 WBC Auto (Unsp spec) 28.8 % 19-41 [facility] Basophil percentageOrdered B y: Sukumar Velazquez on 06-23-2024 Basophils/100 WBC (Bld) 0.5 % 0-1 [facility] Carbon dioxide measurementOr dered By: Sukumar Velazquez on 06-23-2024 CO2 [Moles/Vol] 32.0 mmol/L 21.0-32.0 [facility] Chloride measurementOrdered By: Sukumar Velazquez on 06-23-2024 Chloride [Moles/Vol] 104 mmol/L 98-107 [facility] Eosinophil percentageOrdered By: Sukumar Velazquez on 06-23-2024 Eosinophils/100 WBC (Bld) 6.7 % High 0-5 [facility] Erythrocyte distribution wid th ratioOrdered By: Sukumar Velazquez on 06-23-2024 Erythrocyte distribution width (RBC) [Ratio] 12.3 % 11.6-14.6 [facility] Erythrocyte distribution wid th standard deviationOrdered By: Sukumar Velazquez on 06-23-2024 Erythrocyte distribution width (RBC) [Ratio] 45.8 fl High 35.1-43.9 [facility] Glomerular filtration rate ( GFR) estimationOrdered By: Sukumar Velazquez on 06-23-2024 GFR/1.73 sq M.predicted among non-blacks MDRD (S/P/Bld) [Vol rate/Area] 162 mL/min/{1.73_m2} >60 [facility] Glucose measurementOrdered B y: Sukumar Velazquez on 06-23-2024 Glucose [Mass/Vol] 87 mg/dL 74-106 [facility] Hematocrit Auto (Bld) [Volum e fraction]Ordered By: Sukumar Velazquez on 06-23-2024 Hematocrit (Bld) [Volume fraction] 33.9 % Low 37-47 [facility] Hemoglobin measurementOrdere d By: Sukumar Velazquez on 06-23-2024 Hemoglobin (Bld) [Mass/Vol] 10.9 g/dL Low 12.0-15.0 [facility] Immature granulocytes/100 WB C Auto (Bld)Ordered By: Sukumar Velazquez on 06-23-2024 Immature granulocytes/100 WBC (Bld) 0.300 % 0.0-0.9 [facility] MCV (mean corpuscular volume ) determinationOrdered By: Sukumar Velazquez on 06-23-2024 MCV (RBC) [Entitic vol] 100.6 fL High 81-99 [facility] Mean corpuscular hemoglobin (MCH) determinationOrdered By: Sukumar Velazquez on 06-23-2024 MCH (RBC) [Entitic mass] 32.3 pg High 27.0-32.0 [facility] Monocyte percentageOrdered B y: Sukumar Velazquez on 06-23-2024 Monocytes/100 WBC (Bld) 12.3 % High 0-10 [facility] Neutrophil percentageOrdered By: Sukumar Velazquez on 06-23-2024 Neutrophils/100 WBC (Bld) 51.4 % 47-70 [facility] Platelet countOrdered By: rosie Ehayala on 06-23-2024 Platelets (Bld) [#/Vol] 184 10*3/uL 150-450 [facility] Potassium measurementOrdered By: Sukumar Ehcobyissa on 06-23-2024 Potassium [Moles/Vol] 4.2 mmol/L 3.5-5.1 [facility] RBC Auto (Bld) [#/Vol]Ordere d By: Sukumar Ehayala on 06-23-2024 RBC (Bld) [#/Vol] 3.37 10*6/uL Low 4.2-5.4 [facility] Serum or plasma calcium cedric urement (mass/volume)Ordered By: Mayajeffrybela Ehcobyissa on 06-23-2024 Calcium [Mass/Vol] 9.4 mg/dL 8.5-10.1 [facility] Serum or plasma creatinine m easurement (mass/volume)Ordered By: Sukumar Ehayala on 06-23-2024 Creatinine [Mass/Vol] 0.41 mg/dL Low 0.55-1.02 [facility] Serum or plasma urea nitroge n measurement (mass/volume)Ordered By: Mayajeffrybela Ehcobyissa on 06-23-2024 Urea nitrogen [Mass/Vol] 32 mg/dL High 7-18 [facility] Sodium levelOrdered By: Sera cramer Ehcobyissa on 06-23-2024 Sodium [Moles/Vol] 138 mmol/L 136-145 [facility] White blood cell (WBC) count Ordered By: Sukumar Ehcobyissa on 06-23-2024 WBC (Bld) [#/Vol] 3.9 10*3/uL Low 4.4-11.0 [facility] Anaerobic cultureOrdered By: Evelyn Robertson on 06-22-2024 Bacteria identified Anaer cx Nom (Unsp spec) Anaerobic cocci Abnormal [facility] Gram Stainon 06-22-2024 GS RIGHT BUTTOCK Gram Stain 4+ Red Blood Cells Rare Gram positive diplococci Rare Gram positive rods Normal [facility] Comment on above: Performed By: #### M 100.3000, M100.4001, M100.1999 ####[facility] [address] [place], [address] Gram stainOrdered By: Evelyn constantino on 06-22-2024 Microscopic observation Gram stain Nom (Unsp spec) [facility] Routine wound cultureOrdered By: Evelyn Robertson on 06-22-2024 Microbial culture, routine Haemophilus parainfluenzae Abnormal [facility] Absolute lymphocyte countOrd ered By: Sukumar Velazquez on 06-16-2024 Lymphocytes Auto (Unsp spec) [#/Vol] 1.10 10*3/uL 0.83-4.51 [facility] Automated lymphocyte count a s percentage of total leukocytesOrdered By: Sukumar Velazquez on 06-16-2024 Lymphocytes/100 WBC Auto (Unsp spec) 28.9 % 19-41 [facility] Basophil percentageOrdered B y: Sukumar Velazquez on 06-16-2024 Basophils/100 WBC (Bld) 0.5 % 0-1 [facility] Carbon dioxide measurementOr dered By: Sukumar Velazquez on 06-16-2024 CO2 [Moles/Vol] 32.0 mmol/L 21.0-32.0 [facility] Chloride measurementOrdered By: Sukumar Velazquez on 06-16-2024 Chloride [Moles/Vol] 106 mmol/L 98-107 [facility] Eosinophil percentageOrdered By: Sukumar Velazquez on 06-16-2024 Eosinophils/100 WBC (Bld) 8.4 % High 0-5 [facility] Erythrocyte distribution wid th ratioOrdered By: Sukumar Velazquez on 06-16-2024 Erythrocyte distribution width (RBC) [Ratio] 12.1 % 11.6-14.6 [facility] Erythrocyte distribution wid th standard deviationOrdered By: Sukumar Velazquez on 06-16-2024 Erythrocyte distribution width (RBC) [Ratio] 45.1 fl High 35.1-43.9 [facility] Glomerular filtration rate ( GFR) estimationOrdered By: Sukumar Velazquez on 06-16-2024 GFR/1.73 sq M.predicted among non-blacks MDRD (S/P/Bld) [Vol rate/Area] 135 mL/min/{1.73_m2} >60 [facility] Glucose measurementOrdered B y: Sukumar Velazquez on 06-16-2024 Glucose [Mass/Vol] 91 mg/dL 74-106 [facility] Hematocrit Auto (Bld) [Volum e fraction]Ordered By: Sukumar Velazquez on 06-16-2024 Hematocrit (Bld) [Volume fraction] 33.2 % Low 37-47 [facility] Hemoglobin measurementOrdere d By: Sukumar Velazquez on 06-16-2024 Hemoglobin (Bld) [Mass/Vol] 10.8 g/dL Low 12.0-15.0 [facility] Immature granulocytes/100 WB C Auto (Bld)Ordered By: Sukumar Velazquez on 06-16-2024 Immature granulocytes/100 WBC (Bld) 0.300 % 0.0-0.9 [facility] MCV (mean corpuscular volume ) determinationOrdered By: Sukumar Velazquez on 06-16-2024 MCV (RBC) [Entitic vol] 99.7 fL High 81-99 [facility] Mean corpuscular hemoglobin (MCH) determinationOrdered By: Sukumar Velazquez 06-16-2024 MCH (RBC) [Entitic mass] 32.4 pg High 27.0-32.0 [facility] Monocyte percentageOrdered B y: Sukumar Velazquez on 06-16-2024 Monocytes/100 WBC (Bld) 12.6 % High 0-10 [facility] Neutrophil percentageOrdered By: Sukumar Velazquez on 06-16-2024 Neutrophils/100 WBC (Bld) 49.3 % 47-70 [facility] Platelet countOrdered By: Maya jeffrybela Velazquez on 06-16-2024 Platelets (Bld) [#/Vol] 201 10*3/uL 150-450 [facility] Potassium measurementOrdered By: Sukumar Velazquez on 06-16-2024 Potassium [Moles/Vol] 4.2 mmol/L 3.5-5.1 [facility] RBC Auto (Bld) [#/Vol]Ordere d By: Seradeedeesoumya Velazquez on 06-16-2024 RBC (Bld) [#/Vol] 3.33 10*6/uL Low 4.2-5.4 [facility] Serum or plasma calcium cedric urement (mass/volume)Ordered By: Sukumar Velazquez on 06-16-2024 Calcium [Mass/Vol] 9.4 mg/dL 8.5-10.1 [facility] Serum or plasma creatinine m easurement (mass/volume)Ordered By: Sukumar Velazquez on 06-16-2024 Creatinine [Mass/Vol] 0.48 mg/dL Low 0.55-1.02 [facility] Serum or plasma urea nitroge n measurement (mass/volume)Ordered By: Sukumar Velazquez on 06-16-2024 Urea nitrogen [Mass/Vol] 33 mg/dL High 7-18 [facility] Sodium levelOrdered By: Mayajeffry cramer Caroline on 06-16-2024 Sodium [Moles/Vol] 142 mmol/L 136-145 [facility] White blood cell (WBC) count Ordered By: Sukumar Velazquez on 06-16-2024 WBC (Bld) [#/Vol] 3.8 10*3/uL Low 4.4-11.0 [facility] Absolute lymphocyte countOrd ered By: Sukumar Velazquez on 06-09-2024 Lymphocytes Auto (Unsp spec) [#/Vol] 0.88 10*3/uL 0.83-4.51 [facility] Automated lymphocyte count a s percentage of total leukocytesOrdered By: Sukumar Velazquez on 06-09-2024 Lymphocytes/100 WBC Auto (Unsp spec) 24.0 % 19-41 [facility] Basophil percentageOrdered B y: Sukumar Velazquez on 06-09-2024 Basophils/100 WBC (Bld) 0.5 % 0-1 [facility] Carbon dioxide measurementOr dered By: Sukumar Velazquez on 06-09-2024 CO2 [Moles/Vol] 30.0 mmol/L 21.0-32.0 [facility] Chloride measurementOrdered By: Sukumar Velazquez on 06-09-2024 Chloride [Moles/Vol] 103 mmol/L 98-107 [facility] Eosinophil percentageOrdered By: Sukumar Velazquez on 06-09-2024 Eosinophils/100 WBC (Bld) 6.0 % High 0-5 [facility] Erythrocyte distribution wid th ratioOrdered By: Seralouisburgsoumya Vleazquez on 06-09-2024 Erythrocyte distribution width (RBC) [Ratio] 12.5 % 11.6-14.6 [facility] Erythrocyte distribution wid th standard deviationOrdered By: Sukumar Velazquez on 06-09-2024 Erythrocyte distribution width (RBC) [Ratio] 46.3 fl High 35.1-43.9 [facility] Glomerular filtration rate ( GFR) estimationOrdered By: Sukumar Velazquez on 06-09-2024 GFR/1.73 sq M.predicted among non-blacks MDRD (S/P/Bld) [Vol rate/Area] 161 mL/min/{1.73_m2} >60 [facility] Glucose measurementOrdered B y: Sukumar Velazquez on 06-09-2024 Glucose [Mass/Vol] 81 mg/dL 74-106 [facility] Hematocrit Auto (Bld) [Volum e fraction]Ordered By: Sukumar Velazquez on 06-09-2024 Hematocrit (Bld) [Volume fraction] 33.5 % Low 37-47 [facility] Hemoglobin measurementOrdere d By: Sukumar Velazquez on 06-09-2024 Hemoglobin (Bld) [Mass/Vol] 10.5 g/dL Low 12.0-15.0 [facility] Immature granulocytes/100 WB C Auto (Bld)Ordered By: Sukumar Velazquez on 06-09-2024 Immature granulocytes/100 WBC (Bld) 0.300 % 0.0-0.9 [facility] MCV (mean corpuscular volume ) determinationOrdered By: Sukumar Velazquez on 06-09-2024 MCV (RBC) [Entitic vol] 100.0 fL High 81-99 [facility] Mean corpuscular hemoglobin (MCH) determinationOrdered By: Sukumar Velazquez on 06-09-2024 MCH (RBC) [Entitic mass] 31.3 pg 27.0-32.0 [facility] Monocyte percentageOrdered B y: Sukumar Velazquez on 06-09-2024 Monocytes/100 WBC (Bld) 12.6 % High 0-10 [facility] Neutrophil percentageOrdered By: Sukumar Velazquez on 06-09-2024 Neutrophils/100 WBC (Bld) 56.6 % 47-70 [facility] Platelet countOrdered By: Maya Velazquez on 06-09-2024 Platelets (Bld) [#/Vol] 191 10*3/uL 150-450 [facility] Potassium measurementOrdered By: Sukumar Velazquez on 06-09-2024 Potassium [Moles/Vol] 4.1 mmol/L 3.5-5.1 [facility] RBC Auto (Bld) [#/Vol]Ordere d By: Sukumar Velazquez on 06-09-2024 RBC (Bld) [#/Vol] 3.35 10*6/uL Low 4.2-5.4 [facility] Serum or plasma calcium cedric urement (mass/volume)Ordered By: Sukumar Velazquez on 06-09-2024 Calcium [Mass/Vol] 9.1 mg/dL 8.5-10.1 [facility] Serum or plasma creatinine m easurement (mass/volume)Ordered By: Sukumar Velazquez on 06-09-2024 Creatinine [Mass/Vol] 0.41 mg/dL Low 0.55-1.02 [facility] Serum or plasma urea nitroge n measurement (mass/volume)Ordered By: Sukumar Velazquez on 06-09-2024 Urea nitrogen [Mass/Vol] 28 mg/dL High 7-18 [facility] Sodium levelOrdered By: Sera Velazquez on 06-09-2024 Sodium [Moles/Vol] 138 mmol/L 136-145 [facility] White blood cell (WBC) count Ordered By: Sukumar Velazquez on 06-09-2024 WBC (Bld) [#/Vol] 3.7 10*3/uL Low 4.4-11.0 [facility] Culture, Anaerobic Any Sourc nel 05-17-2024 CUAN RIGHT Cutibacterium acnes Normal [facility] Comment on above: Performed By: #### M 100.4001, M100.3000, M100.1999 ####[facility] [address] [place], [place], [address] Wound Cultureon 05-14-2024 WC Normal [facility] Comment on above: Performed By: #### M 100.4001, M100.3000, M100.1999 ####[facility] [address] [place], [place], [address] Gram Stainon 05-12-2024 GS RIGHT Gram Stain No organisms seen 4+ Red Blood Cells No Epithelial cells Normal [facility] Comment on above: Performed By: #### M 100.4001, M100.3000, M100.1999 ####[facility] [address] [place], [place], [address] CNPNon [facility]-09-2024 [facility] ALE[facility] ANDRE[facility] ([id number]) 1950 F NFR Date Time Provider Department [...] Verbal order relayed to patient's nurse at [facility]. Juliane Landa RN Allergies As of Date: [...] mg by mouth twice daily. - [facility] STANDING WHEELCHAIR Problem List As Of Date [...] Status:Closed by JULIANE LANDA on 05/09/[address] [facility] CBCDIF (EXTERNAL)on 05-05-19 25 BASO ABS [facility] Basophils/100 WBC (Bld) 1.1 % 0 - 1.5 % [facility] EOS ABS [facility] Eosinophils/100 WBC (Bld) 15 % Abnormal 1 - 3 % [facility] Erythrocyte distribution width (RBC) [Ratio] 14.7 % Abnormal 11.6 - 14.6 % [facility] Hematocrit (Bld) [Volume fraction] 30.9 % Abnormal 39 - 55 % [facility] Hemoglobin (Bld) [Mass/Vol] 9.8 g/dL Abnormal 14 - 16.5 g/dL [facility] Lymphocytes (Bld) [#/Vol] 0.95 10*3/uL Abnormal 1. 2 - 4 K/uL [facility] Lymphocytes/100 WBC (Bld) 25 % 20 - 30 % [facility] MCH (RBC) [Entitic mass] 33.2 pg 25. 4 - 34.6 pg [facility] MCHC (RBC) [Mass/Vol] 31.7 g/dL 30 - 3 6 g/dL [facility] MCV (RBC) [Entitic vol] 104.7 fL Abnormal 79 - 98 fL [facility] MONO ABS [facility] Monocytes/100 WBC (Bld) 11.1 % Abnormal 2 - 8 % C [facility] NEUT ABS 1.8 K/uL Abnormal 1.9 - 8 K/uL [facility] Neutrophils/100 WBC (Bld) 47.5 % 40 - 74 % [facility] Platelet mean volume (Bld) [Entitic vol] 10.4 fL 7.4 - 10.4 fL [facility] Platelets (Bld) [#/Vol] 193 10*3/uL 140 - 440 K/uL [facility] RBC (Bld) [#/Vol] 2.95 10*6/uL Abnormal [facility] WBC (Bld) [#/Vol] 3.8 10*3/uL Abnormal 3.9 - 11 K/uL [facility] CNPNon 05-05-2024 CNPN Telephone (INFDAK) ALEENA ANDREA ([id number]) 1950 F NFR Date Time Provider Department [...] Visit: Results [95] Order(s):CREATININE BLOOD (AK,AV,EU,FV,HL,HUGH,MM ,SP) [[id number]] Order #: [id number] CBCDIF (EXTERNAL) [[id number]] Order #: [id number] Prescriptions as of 05/05/2024 - ceFAZolin (ANCEF) [...] mg by mouth twice daily. 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 CREATININE BLOOD (AK,AV,EU,F V,HL,HUGH,MM,SP)on 05-05-2024 Creatinine [Mass/Vol] 0.39 mg/dL Abnormal 0.70 - 1.20 mg/dL [facility] GFR 170 [facility] GFR AFR AMER 206 [facility] No Panel Informationon 05-05 Interpretation and review of laboratory results Abnormal [facility] CNDSon 04-22-2024 CNDS HNO ID: [id number] Author: GUSTABO SALDIVAR MD Service: Hospital Medicine [...] pump, chronic decubitus ulcers, who presented to [facility] from [facility] with concerns of hip pain. Initial [...] the patient to be discharged today to [facility] with one day prescription [...] return to baseline mental/physical health. Discharge Disposition: Snf Facility Physical Exam: Physical Exam Constitutional: Appearance: [...] Musculoskeletal: General: (more content not included)... Normal [facility] CONSULT PROGon 04-21-2024 CONSULT PROG HNO ID: [id number] Author: ISAAC TRAMMELL APRN.SOAKING PITS SUPERVISOR, JAMES Service: General Surgery Author Type: Nurse Practitioner Type: Consult Progress Note Filed: 04/21/2024 09:16 Note Text: Summary: Surgery sign-off Emergency General Surgery Progress Note SERVICE DATE: April 21, 2024 Emergency General Surgery Service Pager: For questions or concerns Mon-Fri 6a-5p please page [phone]. After 5pm and on Weekends and Holidays, please page [phone] if in ICU or [phone] if on RNF. SUBJECTIVE: Right ischial pressure [...] 04/21/2459 04/21/24 07 - 04/22/24 0659 Shift 6101-4798 2683-0562 6753-3411 24 Hour Total 6279-9646 6767-1343 8463-0022 24 Hour Total INTAKE Shift Total OUTPUT [...] the umbilicus for neurogenic bladder. CTAP from [facility] showed right sided 8.5x8.3cm subcutaneous abscess extending [...] with attending: (more content not included)... Normal [facility] NUTRITIONon 04-21-2024 NUTRITION HNO ID: [id number] Author: LUIS MO RD Service: Nutrition Therapy [...] bedscale wt is inaccurate) Dosing Weight Type: Hyde body weight Estimated kilocalorie needs: 1440-1680kcals Calorie [...] April 21, 2024 TIME: 9:38 AM Normal [facility] CBC panel Auto (Bld)on 04-20 Erythrocyte distribution width (RBC) [Ratio] 16.0 % High 11.5-15.0 [facility] Comment on above: Order Comment: Shayy weiss Type: BLOOD SPECIMEN Ordering Facility: [facility] Address: [address] [place] [address] Performed By: #### 5 8410-2 #### [facility] CLIA [id number] [address] [place] Hematocrit (Bld) [Volume fraction] 25.2 % Low 36.0-46.0 [facility] Comment on above: Order Comment: Shayy weiss Type: BLOOD SPECIMEN Ordering Facility: [facility] Address: [address] [place] [address] Performed By: #### 5 8410-2 #### [facility] CLIA [id number] [address] [place] [address] [place] Hemoglobin (Bld) [Mass/Vol] 8.0 g/dL Low 11.5-15.5 [facility] Comment on above: Order Comment: Shayy weiss Type: BLOOD SPECIMEN Ordering Facility: [facility] Address: [address] [place] [address] Performed By: #### 5 8410-2 #### [facility] CLIA [id number] [address] MCH (RBC) [Entitic mass] 32.7 pg Normal 26.0-34.0 [facility] Comment on above: Order Comment: Speci men Type: BLOOD SPECIMEN Ordering Facility: [facility] Address: [address] [place] [address] Performed By: #### 5 8410-2 #### [facility] CLIA [id number] [address] MCHC (RBC) [Mass/Vol] 31.7 g/dL Normal 30.5-36.0 [facility] Comment on above: Order Comment: Speci men Type: BLOOD SPECIMEN Ordering Facility: [facility] Address: [address] [place] [address] Performed By: #### 5 8410-2 #### [facility] CLIA [id number] [address] MCV (RBC) [Entitic vol] 102.9 fL High 80.0-100.0 [facility] Comment on above: Order Comment: Speci men Type: BLOOD SPECIMEN Ordering Facility: [facility] Address: [address] [place] [address] Performed By: #### 5 8410-2 #### [facility] CLIA [id number] [address] Nucleated RBC (Bld) [#/Vol] 10*3/uL Normal <0.01 [facility] Comment on above: Order Comment: Speci men Type: BLOOD SPECIMEN Ordering Facility: [facility] Address: [address] [place] [address] Performed By: #### 5 8410-2 #### [facility] CLIA [id number] [address] OF [facility] Platelet mean volume (Bld) [Entitic vol] 9.4 fL Normal 9.0-12.7 [facility] Comment on above: Order Comment: Speci men Type: BLOOD SPECIMEN Ordering Facility: [facility] Address: [address] [place] [address] Performed By: #### 5 8410-2 #### [facility] CLIA [id number] [address] OF [facility] Platelets (Bld) [#/Vol] 370 10*3/uL Normal 150-400 [facility] Comment on above: Order Comment: Speci men Type: BLOOD SPECIMEN Ordering Facility: [facility] Address: [address] [place] [address] Performed By: #### 5 8410-2 #### [facility] CLIA [id number] [address] OF [facility] RBC (Bld) [#/Vol] 2.45 10*6/uL Low 3.90-5.20 [facility] Comment on above: Order Comment: Speci men Type: BLOOD SPECIMEN Ordering Facility: [facility] Address: [address] [place] [address] Performed By: #### 5 8410-2 #### [facility] CLIA [id number] [address] WBC (Bld) [#/Vol] 8.00 10*3/uL Normal 3.70-11.00 [facility] Comment on above: Order Comment: Speci men Type: BLOOD SPECIMEN Ordering Facility: [facility] Address: [address] [place] [address] Performed By: #### 5 8410-2 #### [facility] CLIA [id number] [address] CONSULT PROGon 04-20-2024 CONSULT PROG HNO ID: [id number] Author: KYLEE VANCE APRN.SOAKING PITS SUPERVISOR Service: General Surgery Author Type: Nurse Practitioner [...] 0659 04/20/24 07 - 04/21/24 0659 Shift 8148-9916 8875-0901 8449-6312 24 Hour Total 8470-0959 2455-4631 2411-7125 24 Hour Total INTAKE PO 120 240 350 710 PO 120 240 350 710 IV 600 501 123 6570 Volume (mL) (piperacillin-tazobac araujo iv piggyback 3.375 g in dextrose (iso-osmotic) 50 mL (ZOSYN)) 50 50 100 200 Volume (mL) (vancomycin 750 mg in D5W 250 mL Vial-Bag (VANCOCIN)) 250 250 500 Volume (mL) (lactated ringers iv infusion) 300 300 Shift Total 720 290 541 7140 OUTPUT Urine 7326 384 7475 2200 2200 Straight cath (ml) 3629 727 6702 2200 2200 # of BMs Number of BMs 1 x 1 x 1 x 1 x Blood 20 20 Estimated Blood loss 20 20 Shift Total 20 8281 229 7636 2200 2200 Weight (kg) 54.1 54.1 54.1 [...] (PWD) 1 mg patient's own pump - [facility] placeholder INTRATHECAL CONTINUOUS traZODone 100 [...] the umbilicus for neurogenic bladder. CTAP from [facility] showed right sided 8.5x8.3cm subcutaneous abscess extending [...] protein intake (more content not included)... Normal [facility] CONSULT PROG HNO ID: [id number] Author: JIM TORRES MD Service: Infectious Disease Author Type: Physician Type: Consult Progress Note Filed: 04/20/2024 16:46 Note Text: PROGRESS NOTE INFECTIOUS DISEASE BRIEF SUMMARY: 73 year old female Transverse myelitis, neurogenic bladder status post lap augmentation cystoplasty with ileal ileal right sacral,, CAD, hypertension, chronic sacral decubitus ulcer, chronic pain on intrathecal pain pump presented to [facility] 04/13/2024 for 1 week right hip [...] and Airways Line Duration Peripheral 04/14/[address] [facility] Short Left Hand 20 Gauge [...] Units Date/Time WOUND CULTURE AND GRAM STAIN [[id number]] (Abnormal) (Susceptibility) Collected: 04/16/24 1132 Order Status: Completed Specimen: Aspirate/Fine Needle Aspirate from Abscess (Specify site in comment) Updated: 04/19/24 1457 Culture, Wound Rare Staphylococcus aureus Gram Stain No organisms seen Many Polymorphonuclear leukocytes Many Red Blood Cells Agnieszka (more content not included)... Normal [facility] CONSULT PROG HNO ID: [id number] Author: DANNIE LANDEROS RPh Service: Pharmacy Author [...] pharmacy if there are questions. Dannie Landeros [facility] Normal [facility] CREATININE BLDon 04-20-2024 Creatinine [Mass/Vol] 0.49 mg/dL Low 0.58-0.96 [facility] Comment on above: Order Comment: Speci men Type: BLOOD SPECIMEN Ordering Facility: [facility] Address: [address] [place] [address] Performed By: #### C RET1 #### [facility] CLIA [id number] [address] [place] [address] [place] Creatinine and Glomerular filtration rate.predicted panel (S/P/Bld) 100 mL/min/1.73m??? Normal >=60 [facility] Comment on above: Order Comment: Speci men Type: BLOOD SPECIMEN Ordering Facility: [facility] Address: [address] [place] [address] Result Comment: Kristina mated Glomerular Filtration Rate [...] GFR. Performed By: #### C RET1 #### [facility] CLIA [id number] [address] PT EDon 04-20-2024 PT ED HNO ID: [id number] Author: YUKO PUTNAM RN Service: PICC Team [...] PATIENT EDUCATION SECTION OF THE EMR Normal [facility] ANES POSTPROC EVALon 024 ANES POSTPROC EVAL HNO ID: [id number] Author: MEGAN MAYA MD Service: Anesthesiology Author Type: Physician Type: Anesthesia Postprocedure Evaluation Filed: 04/19/2024 14:08 Note Text: POST ANESTHESIA EVALUATION NOTE : 1950 Procedure Summary Date: 04/19/24 Room / Location: [place] OR OR Anesthesia Start: 1046 Anesthesia Stop: [...] April 19, 2024 TIME: 2:07 PM CSN: [id number] [facility] ANES PRE-OPon 04-19-2024 ANES PRE-OP HNO ID: [id number] Author: MEGAN MAYA MD Service: Anesthesiology Author [...] mouth t (more content not included)... Normal [facility] CONSULT PROGon 04-19-2024 CONSULT PROG HNO ID: [id number] Author: FANI ALMODOVAR RPh Service: Hospital Medicine [...] questions, please contact Fani Almodovar, PharmD at [phone]. Age: [age] year old Allergies: ALLERGIES Allergen [...] 16.7 04/15/2024 0908 10.8 Fani Almodovar, CharlineD, [facility] CONSULT PROG HNO ID: [id number] Author: KYLEE VANCE APRN.SOAKING PITS SUPERVISOR Service: General Surgery Author Type: Nurse Practitioner Type: Consult Progress Note Filed: 04/19/2024 16:53 Note Text: Emergency General Surgery Progress Note SERVICE DATE: April 19, 2024 Emergency General Surgery Service Pager: For questions or concerns Mon-Fri 6a-5p please page [phone]. After 5pm and on Weekends and Holidays, please page [phone] if in ICU or [phone] if on RNF. SUBJECTIVE: EGS is following [...] 0659 04/19/24 0700 - 04/20/24 0659 Shift 1807-9259 3110-6159 24 Hour Total 6093-0684 3498-0894 2359-1821 24 Hour Total INTAKE PO 240 718 [...] (PWD) 1 mg patient's own pump - [facility] placeholder INTRATHECAL CONTINUOUS traZODone 100 [...] the umbilicus for neurogenic bladder. CTAP from [facility] showed right sided 8.5x8.3cm subcutaneous abscess extending [...] Zosyn and (more content not included)... Normal [facility] Hgb Bld-mCncon 04-19-2024 Hemoglobin (Bld) [Mass/Vol] 8.3 g/dL Low 11.5-15.5 [facility] Comment on above: Order Comment: Speci men Type: BLOOD SPECIMEN Ordering Facility: [facility] Address: [address] [place] [address] Performed By: #### C RET1 #### [facility] CLIA [id number] [address] [place] OF [facility] OPERATIVE NOon 04-19-2024 OPERATIVE NO HNO ID: [id number] Author: JENNFIER JEAN MD Service: General Surgery Author Type: [...] Time: 3:35 PM OPERATIVE/PROCEDURE REPORT LOG ID: [id number] SURGERY/PROCEDURE DATE: 04/19/2024 INCISION/PROCEDURE START TIME: 11:12 AM INCISION CLOSE/PROCEDURE END TIME: 11:40 AM SURGEON(S)/PROCEDURAL IST(S) AND DIABETES TERRITORY MANAGER(S): Surgeons and Role: * Jennifer Jean MD [...] by the primary surgeon/proceduralist with assistance. SIGNATURE: oMni Worley MD PATIENT NAME: Aleena Andrea DATE: April 19, 2024 TIME: 2:03 PM Normal [facility] CONSULT PROGon 04-18-2024 CONSULT PROG HNO ID: [id number] Author: JIM TORRES MD Service: Infectious Disease Author Type: Physician Type: Consult Progress Note Filed: 04/18/2024 16:59 Note Text: PROGRESS NOTE INFECTIOUS DISEASE BRIEF SUMMARY: 73 year old female Transverse myelitis, neurogenic bladder status post lap augmentation cystoplasty with ileal ileal right sacral,, CAD, hypertension, chronic sacral decubitus ulcer, chronic pain on intrathecal pain pump presented to [facility] 04/13/2024 for 1 week right hip [...] and Airways Line Duration Peripheral 04/14/[address] [facility] Short Left Hand 20 Gauge [...] Units Date/Time WOUND CULTURE AND GRAM STAIN [[id number]] (Abnormal) Collected: (more content not included)... Normal [facility] Culture, Anaerobic Any Sourc nel 04-18-2024 CUAN RIGHT No anaerobic bacteria isolated. Normal [facility] Comment on above: Performed By: #### M 100.4001, M100.3000, M100.1999 ####[facility] [id number] [place], [address] Basic metabolic 2000 panelon 04-17-2024 Anion gap [Moles/Vol] 8 mmol/L Normal 8-15 [facility] Comment on above: Order Comment: Speci men Type: BLOOD SPECIMEN Ordering Facility: [facility] Address: [address] [place] [address] Performed By: #### 5 8410-2 #### [facility] CLIA [id number] [address] [place] [address] [place] Calcium [Mass/Vol] 8.4 mg/dL Low 8.5-10.2 [facility] Comment on above: Order Comment: Speci men Type: BLOOD SPECIMEN Ordering Facility: [facility] Address: [address] [place] [address] Performed By: #### 5 8410-2 #### [facility] CLIA [id number] [address] [place] [address] [place] Chloride [Moles/Vol] 100 mmol/L Normal 98-107 [facility] Comment on above: Order Comment: Speci men Type: BLOOD SPECIMEN Ordering Facility: [facility] Address: [address] [place] [address] Performed By: #### 5 8410-2 #### [facility] CLIA [id number] [address] [place] [address] [place] CO2 [Moles/Vol] 27 mmol/L Normal 22-30 [facility] Comment on above: Order Comment: Speci men Type: BLOOD SPECIMEN Ordering Facility: [facility] Address: [address] [place] [address] Performed By: #### 5 8410-2 #### [facility] CLIA [id number] [address] Creatinine [Mass/Vol] 0.49 mg/dL Low 0.58-0.96 [facility] Comment on above: Order Comment: Shayy abhishke Type: BLOOD SPECIMEN Ordering Facility: [facility] Address: [address] [place] [address] Performed By: #### 5 8410-2 #### [facility] CLIA [id number] [address] Creatinine and Glomerular filtration rate.predicted panel (S/P/Bld) 100 mL/min/1.73m??? Normal >=60 [facility] Comment on above: Order Comment: Shayy abhishek Type: BLOOD SPECIMEN Ordering Facility: [facility] Address: [address] [place] [address] Result Comment: Kristina mated Glomerular Filtration Rate [...] GFR. Performed By: #### 5 8410-2 #### [facility] CLIA [id number] [address] Glucose [Mass/Vol] 97 mg/dL Normal 74-99 [facility] Comment on above: Order Comment: Pollyantony weiss Type: BLOOD SPECIMEN Ordering Facility: [facility] Address: [address] [place] [address] Result Comment: The [place] [employer] (ADA) provides guidance for cutoff [...] Standards of Medical Care in Diabetes 2016, [place] [employer]. Diabetes Care. 2016.39(Suppl 1). Performed By: #### 5 8410-2 #### [facility] CLIA [id number] [address] Potassium [Moles/Vol] 4.4 mmol/L Normal 3.7-5.1 [facility] Comment on above: Order Comment: Pollyi men Type: BLOOD SPECIMEN Ordering Facility: [facility] Address: [address] [place] [address] Performed By: #### 5 8410-2 #### [facility] CLIA [id number] [address] Sodium [Moles/Vol] 135 mmol/L Low 136-144 [facility] Comment on above: Order Comment: Pollyi men Type: BLOOD SPECIMEN Ordering Facility: [facility] Address: [address] [place] [address] Performed By: #### 5 8410-2 #### [facility] CLIA [id number] [address] Urea nitrogen [Mass/Vol] 10 mg/dL Normal 7-21 [facility] Comment on above: Order Comment: Pollyi men Type: BLOOD SPECIMEN Ordering Facility: [facility] Address: [address] [place] [address] Performed By: #### 5 8410-2 #### [facility] CLIA [id number] [address] CBC panel Auto (Bld)on 04-17 Erythrocyte distribution width (RBC) [Ratio] 16.0 % High 11.5-15.0 [facility] Comment on above: Order Comment: Speci men Type: BLOOD SPECIMEN Ordering Facility: [facility] Address: [address] [place] [address] Performed By: #### 5 8410-2 #### [facility] CLIA [id number] [address] OF [facility] Hematocrit (Bld) [Volume fraction] 24.9 % Low 36.0-46.0 [facility] Comment on above: Order Comment: Speci men Type: BLOOD SPECIMEN Ordering Facility: [facility] Address: [facility] [place] [address] Performed By: #### 5 8410-2 #### [facility] CLIA [id number] [address] [place] Hemoglobin (Bld) [Mass/Vol] 8.0 g/dL Low 11.5-15.5 [facility] Comment on above: Order Comment: Speci men Type: BLOOD SPECIMEN Ordering Facility: [facility] Address: [address] [place] [address] Performed By: #### 5 8410-2 #### [facility] CLIA [id number] [address] MCH (RBC) [Entitic mass] 32.5 pg Normal 26.0-34.0 [facility] Comment on above: Order Comment: Speci men Type: BLOOD SPECIMEN Ordering Facility: [facility] Address: [address] [place] [address] Performed By: #### 5 8410-2 #### [facility] CLIA [id number] [address] [place] MCHC (RBC) [Mass/Vol] 32.1 g/dL Normal 30.5-36.0 [facility] Comment on above: Order Comment: Speci men Type: BLOOD SPECIMEN Ordering Facility: [facility] Address: [facility] [place] [address] Performed By: #### 5 8410-2 #### [facility] CLIA [id number] [address] [place] MCV (RBC) [Entitic vol] 101.2 fL High 80.0-100.0 [facility] Comment on above: Order Comment: Speci men Type: BLOOD SPECIMEN Ordering Facility: [facility] Address: [address] [place] [address] Performed By: #### 5 8410-2 #### [facility] CLIA [id number] [address] [place] Nucleated RBC (Bld) [#/Vol] 10*3/uL Normal <0.01 [facility] Comment on above: Order Comment: Speci men Type: BLOOD SPECIMEN Ordering Facility: [facility] Address: [address] [place] [address] Performed By: #### 5 8410-2 #### [facility] CLIA [id number] [address] [place] Platelet mean volume (Bld) [Entitic vol] 9.1 fL Normal 9.0-12.7 [facility] Comment on above: Order Comment: Speci men Type: BLOOD SPECIMEN Ordering Facility: [facility] Address: [address] [place] [address] Performed By: #### 5 8410-2 #### [facility] CLIA [id number] [address] [place] Platelets (Bld) [#/Vol] 445 10*3/uL High 150-400 [facility] Comment on above: Order Comment: Speci men Type: BLOOD SPECIMEN Ordering Facility: [facility] Address: [address] [place] [address] Performed By: #### 5 8410-2 #### [facility] CLIA [id number] [address] [place] RBC (Bld) [#/Vol] 2.46 10*6/uL Low 3.90-5.20 [facility] Comment on above: Order Comment: Speci men Type: BLOOD SPECIMEN Ordering Facility: [facility] Address: [address] [place] [address] Performed By: #### 5 8410-2 #### [facility] CLIA [id number] [address] [place] WBC (Bld) [#/Vol] 8.34 10*3/uL Normal 3.70-11.00 [facility] Comment on above: Order Comment: Speci men Type: BLOOD SPECIMEN Ordering Facility: [facility] Address: [address] [place] [address] Performed By: #### 5 8410-2 #### [facility] CLIA [id number] [address] OF [facility] CONSULT PROGon 04-17-2024 CONSULT PROG HNO ID: [id number] Author: FANI ALMODOVAR RPh Service: Pharmacy Author [...] any questions, please contact Charline MontanezD at [phone]. Age: [age] year old Allergies: ALLERGIES Allergen [...] 16.7 04/15/2024 0908 10.8 Fani Almodovar, PharmD, [facility] Normal [facility] Vancomycin random [Mass/Vol] on 04-17-2024 Vancomycin [Mass/Vol] 16.7 ug/mL Normal 10.0-20.0 [facility] Comment on above: Order Comment: Speci men Type: BLOOD SPECIMEN Ordering Facility: [facility] Address: [address] [place] [address] Result Comment: Refe rence ranges and high/low indicator flags are provided as general guidelines only. The treating physician must determine appropriate target levels/dosing based on the specific clinical situation. Performed By: #### 4 091-5 #### [facility] CLIA [id number] [address] [place] [address] [place] BRIEF OP NOTon 04-16-2024 BRIEF OP NOT HNO ID: [id number] Author: ENRIQUE OLSEN MD Service: Interventional Radiology Author Type: Physician Type: Brief Op Note Filed: 04/16/2024 11:26 Note Text: BRIEF OPERATIVE / PROCEDURE NOTE LOG ID: [id number] SURGERY/PROCEDURE DATE: 04/16/2024 INCISION/PROCEDURE START TIME: 11:02 AM INCISION CLOSE/PROCEDURE END TIME: 11:22 AM SURGEON(S)/PROCEDURAL IST(S) AND DIABETES TERRITORY MANAGER(S): Surgeons and Role: * Enrique Olsen MD, [...] DATE: April 16, 2024 TIME: 11:23 AM [facility] Bacteria Wnd Culton 04-16-20 [...] , Intermediate >4 , Resistant >8 Abnormal [facility] Comment on above: Performed By: #### 6 462-6 ####[facility] [id number] [place] [address] [place] Basic metabolic 2000 panelon 04-16-2024 Anion gap [Moles/Vol] 7 mmol/L Low 8-15 [facility] Comment on above: Order Comment: Speci men Type: BLOOD SPECIMENOrdering Facility: [facility] Address: [address] [place] [address] Performed By: #### 2 4321-2 ####[facility]IA [id number] [place] [address] [place] Calcium [Mass/Vol] 8.2 mg/dL Low 8.5-10.2 [facility] Comment on above: Order Comment: Speci men Type: BLOOD SPECIMENOrdering Facility: [facility] Address: [address] [place] [address] Performed By: #### 2 4321-2 ####[facility]CLIA [id number] [address] [place] Chloride [Moles/Vol] 105 mmol/L Normal 98-107 [facility] Comment on above: Order Comment: Speci men Type: BLOOD SPECIMENOrdering Facility: [facility] Address: [address] [place] [address] Performed By: #### 2 4321-2 ####[facility]ORY[facility]IA [id number] [address] CO2 [Moles/Vol] 27 mmol/L Normal 22-30 [facility] Comment on above: Order Comment: Speci men Type: BLOOD SPECIMENOrdering Facility: [facility] Address: [address] [place] [address] Performed By: #### 2 4321-2 ####[facility]ORYCLIA [id number] [address] Creatinine [Mass/Vol] 0.48 mg/dL Low 0.58-0.96 [facility] Comment on above: Order Comment: Speci men Type: BLOOD SPECIMENOrdering Facility: [facility] Address: [address] [place] [address] Performed By: #### 2 4321-2 ####[facility] [id number] [address] Creatinine and Glomerular filtration rate.predicted panel (S/P/Bld) 101 mL/min/1.73m??? Normal >=60 [facility] Comment on above: Order Comment: Speci men Type: BLOOD SPECIMENOrdering Facility: [facility] Address: [address] [place] [address] Result Comment: Kristina mated Glomerular Filtration Rate [...] actual GFR. Performed By: #### 2 4321-2 ####[facility] LABORATORYCLIA [id number] [address] Glucose [Mass/Vol] 86 mg/dL Normal 74-99 [facility] Comment on above: Order Comment: Speci men Type: BLOOD SPECIMENOrdering Facility: [facility] Address: [address] [place] [address] Result Comment: The [place] Diabetes Association (ADA) provides guidance for cutoff [...] Standards of Medical Care in Diabetes 2016, [place] [employer]. Diabetes Care. 2016.39(Suppl 1). Performed By: #### 2 4321-2 ####[facility] LABORATORYCLIA [id number] [place] [address] [place] Potassium [Moles/Vol] 4.5 mmol/L Normal 3.7-5.1 [facility] Comment on above: Order Comment: Speci men Type: BLOOD SPECIMENOrdering Facility: [facility] Address: [address] [place] [address] Performed By: #### 2 1-2 ####[facility] LABORATORYCLIA [id number] [place] [address] [place] Sodium [Moles/Vol] 139 mmol/L Normal 136-144 [facility] Comment on above: Order Comment: Speci men Type: BLOOD SPECIMENOrdering Facility: [facility] Address: [address] [place] [address] Performed By: #### 2 4321-2 ####[facility] LABORATORYCLIA [id number] [place] [address] [place] Urea nitrogen [Mass/Vol] 8 mg/dL Normal 7-21 [facility] Comment on above: Order Comment: Speci men Type: BLOOD SPECIMENOrdering Facility: [facility] Address: [address] [place] [address] Performed By: #### 2 4321-2 ####[facility] LABORATORYCLIA [id number] [address] CBC panel Auto (Bld)on 04-16 Erythrocyte distribution width (RBC) [Ratio] 16.5 % High 11.5-15.0 [facility] Comment on above: Order Comment: Speci men Type: BLOOD SPECIMEN Ordering Facility: [facility] Address: [address] [place] [address] Performed By: #### 5 8410-2 #### [facility] CLIA [id number] [address] Hematocrit (Bld) [Volume fraction] 23.8 % Low 36.0-46.0 [facility] Comment on above: Order Comment: Speci men Type: BLOOD SPECIMEN Ordering Facility: [facility] Address: [address] [place] [address] Performed By: #### 5 8410-2 #### [facility] CLIA [id number] [address] Hemoglobin (Bld) [Mass/Vol] 7.6 g/dL Low 11.5-15.5 [facility] Comment on above: Order Comment: Speci men Type: BLOOD SPECIMEN Ordering Facility: [facility] Address: [address] [place] [address] Performed By: #### 5 8410-2 #### [facility] CLIA [id number] [address] MCH (RBC) [Entitic mass] 32.6 pg Normal 26.0-34.0 [facility] Comment on above: Order Comment: Speci men Type: BLOOD SPECIMEN Ordering Facility: [facility] Address: [address] [place] [address] Performed By: #### 5 8410-2 #### [facility] CLIA [id number] [address] MCHC (RBC) [Mass/Vol] 31.9 g/dL Normal 30.5-36.0 [facility] Comment on above: Order Comment: Speci men Type: BLOOD SPECIMEN Ordering Facility: [facility] Address: [address] [place] [address] Performed By: #### 5 8410-2 #### [facility] CLIA [id number] [address] MCV (RBC) [Entitic vol] 102.1 fL High 80.0-100.0 [facility] Comment on above: Order Comment: Speci men Type: BLOOD SPECIMEN Ordering Facility: [facility] Address: [address] [place] [address] Performed By: #### 5 8410-2 #### [facility] CLIA [id number] [address] Nucleated RBC (Bld) [#/Vol] 10*3/uL Normal <0.01 [facility] Comment on above: Order Comment: Speci men Type: BLOOD SPECIMEN Ordering Facility: [facility] Address: [address] [place] [address] Performed By: #### 5 8410-2 #### [facility] CLIA [id number] [address] Platelet mean volume (Bld) [Entitic vol] 9.2 fL Normal 9.0-12.7 [facility] Comment on above: Order Comment: Speci men Type: BLOOD SPECIMEN Ordering Facility: [facility] Address: [address] [place] [address] Performed By: #### 5 8410-2 #### [facility] CLIA [id number] [address] [place] Platelets (Bld) [#/Vol] 465 10*3/uL High 150-400 [facility] Comment on above: Order Comment: Speci men Type: BLOOD SPECIMEN Ordering Facility: [facility] Address: [facility] [place] [address] Performed By: #### 5 8410-2 #### [facility] CLIA [id number] [address] [place] RBC (Bld) [#/Vol] 2.33 10*6/uL Low 3.90-5.20 [facility] Comment on above: Order Comment: Pollyantony weiss Type: BLOOD SPECIMEN Ordering Facility: [facility] Address: [address] [place] [address] Performed By: #### 5 8410-2 #### [facility] CLIA [id number] [address] OF [facility] WBC (Bld) [#/Vol] 6.27 10*3/uL Normal 3.70-11.00 [facility] Comment on above: Order Comment: Speci men Type: BLOOD SPECIMEN Ordering Facility: [facility] Address: [address] [place] [address] Performed By: #### 5 8410-2 #### [facility] CLIA [id number] [address] CONSULT PROGon 04-16-2024 CONSULT PROG HNO ID: [id number] Author: CASE ERICKSON MD Service: General Surgery [...] questions or concerns Mon-Fri 6a-5p please page [phone]. After 5pm and on Weekends and Holidays, please page [phone] if in ICU or [phone] if on RNF. SUBJECTIVE: Patient seen this [...] 04/16/24 0659 04/16/24699 - 04/17/24 0659 Shift 7155-5623 2565-6405 2085-1132 24 Hour Total 0966-3296 4229-5105 5462-5796 24 Hour Total INTAKE PO 240 660 900 PO 240 660 900 Shift Total 240 660 900 OUTPUT Urine 396 514 4408 2800 Void (ml) 697 088 2912 2800 Shift Total 417 239 0934 2800 Weight (kg) 54.1 54.1 54.1 54.1 [...] (PWD) 1 mg patient's own pump - [facility] placeholder INTRATHECAL CONTINUOUS traZODone 100 [...] placement Pl (more content not included)... Normal [facility] CT ASPIRATION SUBCUT ABSCESS on 04-16-2024 CT ASPIRATION SUBCUT ABSCESS * * *Final Report* * * DATE OF EXAM: Apr 16 2024 11:39AM [facility] 2049 - CT ASPIRATION SUBCUT ABSCESS / PROCEDURE REASON: Abscess * * * * Physician Interpretation * * * * PROCEDURE PERFORMED: CT GUIDED ASPIRATION INDICATION FOR PROCEDURE: The patient is a 73 years old Female who presents with rim-enhancing areas on CT concerning for abscesses. STAFF RADIOLOGIST: Enrique Olsen MD DIABETES TERRITORY MANAGER(S): None CONSENT: The risks, benefits, treatment options, [...] performed by the: attending radiologist, without an insurance claims assistant. The attending radiologist performed the following [...] CT appearance is compatible with tissue necrosis). Academic Director: [facility]am Transcribe Date/Time: Apr 18 2024 1:33P Dictated by : ENRIQUE OLSEN MD This examination was interpreted and the report reviewed and electronically signed by: ENRIQUE OLSEN MD on Apr 18 2024 1:38PM EST [id number] N Normal [facility] PT panel Coag (PPP)on 2023 INR Coag (PPP) [Relative time] 1.0 {INR} Normal 0.9-1.3 [facility] Comment on above: Order Comment: Shayy weiss Type: BLOOD SPECIMEN Ordering Facility: [facility] Address: [address] [place] [address] Result Comment: Cyndi min K Antagonist (VKA) Therapeutic Range: INR 2 to 3 (Target INR of 2.5) Note: For patients treated with VKA drugs, such as warfarin, the [place] [employer] 2012 Guideline recommends [...] Chest 2012, 141:7S-47S Ishan RA, et al. [facility] 2017, 70: 252-289 Performed By: #### C RET1 #### [facility] CLIA [id number] [address] [place] PT Coag (PPP) [Time] 11.4 s Normal 9.7-13.0 [facility] Comment on above: Order Comment: Shayy weiss Type: BLOOD SPECIMEN Ordering Facility: [facility] Address: [address] [place] [id number] Performed By: #### C RET1 #### [facility] CLIA [id number] [address] [place] [address] [place] Basic metabolic 2000 panelon 04-15-2024 Anion gap [Moles/Vol] 7 mmol/L Low 8-15 [facility] Comment on above: Order Comment: Shayy weiss Type: BLOOD SPECIMEN Ordering Facility: [facility] Address: [address] [place] [address] Performed By: #### C RET1 #### [facility] CLIA [id number] [address] [place] Calcium [Mass/Vol] 7.7 mg/dL Low 8.5-10.2 [facility] Comment on above: Order Comment: Speci men Type: BLOOD SPECIMEN Ordering Facility: [facility] Address: [address] [place] [address] Performed By: #### C RET1 #### [facility] CLIA [id number] [address] [place] Chloride [Moles/Vol] 99 mmol/L Normal 98-107 [facility] Comment on above: Order Comment: Speci men Type: BLOOD SPECIMEN Ordering Facility: [facility] Address: [address] [place] [address] Performed By: #### C RET1 #### [facility] CLIA [id number] [address] [place] CO2 [Moles/Vol] 26 mmol/L Normal 22-30 [facility] Comment on above: Order Comment: Speci men Type: BLOOD SPECIMEN Ordering Facility: [facility] Address: [address] [place] [address] Performed By: #### C RET1 #### [facility] CLIA [id number] [address] [place] Creatinine [Mass/Vol] 0.38 mg/dL Low 0.58-0.96 [facility] Comment on above: Order Comment: Speci men Type: BLOOD SPECIMEN Ordering Facility: [facility] Address: [address] [place] [address] Performed By: #### C RET1 #### [facility] CLIA [id number] [address] Creatinine and Glomerular filtration rate.predicted panel (S/P/Bld) 107 mL/min/1.73m??? Normal >=60 [facility] Comment on above: Order Comment: Speci men Type: BLOOD SPECIMEN Ordering Facility: [facility] Address: [address] [place] [address] Result Comment: Kristina mated Glomerular Filtration Rate [...] GFR. Performed By: #### C RET1 #### [facility] CLIA [id number] [address] [place] [address] [place] Glucose [Mass/Vol] 174 mg/dL High 74-99 [facility] Comment on above: Order Comment: Shayy weiss Type: BLOOD SPECIMEN Ordering Facility: [facility] Address: [address] [place] [address] Result Comment: The [place] Diabetes Association (ADA) provides guidance for cutoff [...] Standards of Medical Care in Diabetes 2016, [place] [employer]. Diabetes Care. 2016.39(Suppl 1). Performed By: #### C RET1 #### [facility] CLIA [id number] [address] [place] [address] [place] Potassium [Moles/Vol] Normal [facility] Comment on above: Order Comment: Shayy weiss Type: BLOOD SPECIMEN Ordering Facility: [facility] Address: [address] [place] [address] Result Comment: Unab le to assay due to interference from hemolysis. Suggest reorder as clinically indicated. Performed By: #### C RET1 #### [facility] CLIA [id number] [address] Sodium [Moles/Vol] 132 mmol/L Low 136-144 [facility] Comment on above: Order Comment: Speci men Type: BLOOD SPECIMEN Ordering Facility: [facility] Address: [address] [place] [address] Performed By: #### C RET1 #### [facility] CLIA [id number] [address] STATES [facility] Urea nitrogen [Mass/Vol] 9 mg/dL Normal 7-21 [facility] Comment on above: Order Comment: Speci men Type: BLOOD SPECIMEN Ordering Facility: [facility] Address: [address] [place] [address] Performed By: #### C RET1 #### [facility] CLIA [id number] [address] CBC panel Auto (Bld)on 04-15 Erythrocyte distribution width (RBC) [Ratio] 15.7 % High 11.5-15.0 [facility] Comment on above: Order Comment: Speci men Type: BLOOD SPECIMEN Ordering Facility: [facility] Address: [address] [place] [address] Performed By: #### C RET1 #### [facility] CLIA [id number] [address] Hematocrit (Bld) [Volume fraction] 25.5 % Low 36.0-46.0 [facility] Comment on above: Order Comment: Speci men Type: BLOOD SPECIMEN Ordering Facility: [facility] Address: [address] [place] [address] Performed By: #### C RET1 #### [facility] CLIA [id number] [address] [place] Hemoglobin (Bld) [Mass/Vol] 8.4 g/dL Low 11.5-15.5 [facility] Comment on above: Order Comment: Speci men Type: BLOOD SPECIMEN Ordering Facility: [facility] Address: [facility] [place] [address] Performed By: #### C RET1 #### [facility] CLIA [id number] [address] MCH (RBC) [Entitic mass] 33.3 pg Normal 26.0-34.0 [facility] Comment on above: Order Comment: Speci men Type: BLOOD SPECIMEN Ordering Facility: [facility] Address: [address] [place] [address] Performed By: #### C RET1 #### [facility] CLIA [id number] [address] MCHC (RBC) [Mass/Vol] 32.9 g/dL Normal 30.5-36.0 [facility] Comment on above: Order Comment: Speci men Type: BLOOD SPECIMEN Ordering Facility: [facility] Address: [address] [place] [address] Performed By: #### C RET1 #### [facility] CL[facility] [id number] [address] MCV (RBC) [Entitic vol] 101.2 fL High 80.0-100.0 [facility] Comment on above: Order Comment: Speci men Type: BLOOD SPECIMEN [facility]ing Facility: [facility] Address: [address] [place] [address] Performed By: #### C RET1 #### [facility] CLIA [id number] [address] Nucleated RBC (Bld) [#/Vol] 10*3/uL Normal <0.01 [facility] Comment on above: Order Comment: Speci men Type: BLOOD SPECIMEN Ordering Facility: [facility] Address: [address] [place] [address] Performed By: #### C RET1 #### [facility] CLIA [id number] [address] Platelet mean volume (Bld) [Entitic vol] 9.7 fL Normal 9.0-12.7 [facility] Comment on above: Order Comment: Speci men Type: BLOOD SPECIMEN [facility]ing Facility: [facility] Address: [address] [place] [address] Performed By: #### C RET1 #### [facility] CLIA [id number] [address] Platelets (Bld) [#/Vol] 594 10*3/uL High 150-400 [facility] Comment on above: Order Comment: Speci men Type: BLOOD SPECIMEN [facility]ing Facility: [facility] Address: [address] [place] [address] Performed By: #### C RET1 #### [facility] CLIA [id number] [address] RBC (Bld) [#/Vol] 2.52 10*6/uL Low 3.90-5.20 [facility] Comment on above: Order Comment: Speci men Type: BLOOD SPECIMEN Ordering Facility: [facility] Address: [address] [place] [address] Performed By: #### C RET1 #### [facility] CLIA [id number] [address] WBC (Bld) [#/Vol] 8.17 10*3/uL Normal 3.70-11.00 [facility] Comment on above: Order Comment: Speci men Type: BLOOD SPECIMEN [facility]ing Facility: [facility] Address: [address] [place] [address] Performed By: #### C RET1 #### [facility] CLIA [id number] [address] CONSULTon 04-15-2024 CONSULT HNO ID: [id number] Author: JIM TORRES MD Service: Infectious Disease [...] pain on intrathecal pain pump presented to [facility] 04/13/2024 for 1 week right hip [...] Cancer Father 85 Ischemic Heart Disease Mother NM ( in 2001) Osteoporosis Mother other (MS) O (more content not included)... Normal [facility] CONSULT PROGon 04-15-2024 CONSULT PROG HNO ID: [id number] Author: FANI ALMODOVAR Formerly [facility] Service: Pharmacy Author Type: Pharmacist Type: Consult [...] questions, please contact Fani Almodovar, PharmD at [phone]. Age: [age] year old Allergies: ALLERGIES Allergen [...] Value 04/15/2024 0908 10.8 Fani Almodovar, PharmD, [facility] CONSULT PROG HNO ID: [id number] Author: TARUN HARRIS DO Service: General Surgery [...] - 04/15/2465804/15/24 07 - 12/14/24 0659 Shift 9598-2440 5457-3399 0293-1490 24 Hour Total 5643-7523 4940-1797 2346-7604 24 Hour Total INTAKE IV 1300 1300 Volume (mL) (lactated ringers 500 mL iv bolus) 500 500 Volume (mL) (lactated ringers iv infusion) 800 800 Shift Total 1300 1300 OUTPUT Urine 678 115 1510 Void (ml) 840 189 0980 Shift Total 443 631 8153 Weight (kg) 44.5 54.1 54.1 54.1 54.1 [...] (PWD) 1 mg patient's own pump - [facility] placeholder INTRATHECAL CONTINUOUS traZODone 100 [...] DATE: April 15, 2024 TIME: 0702 Pager: [phone] Emergency General Surgery Service Pager: For questions or concerns Mon-Fri 6a-5p please page [phone]. After 5pm and on Weekends and Holidays, please page [phone] if in ICU or [phone] if on RNF. Normal [facility] POTASSIUMon 04-15-2024 Potassium [Moles/Vol] 3.7 mmol/L Normal 3.7-5.1 [facility] Comment on above: Order Comment: Speci men Type: BLOOD SPECIMEN [facility] Address: [address] [place] [address] Performed By: #### C RET1 #### [facility] CLIA [id number] [address] OF [facility] STAPHYLOCOCCUS AUREUS AND MR SA SCREEN, PCR, NASALon 04-15-2024 S. aureus and MRSA panel PENELOPE+probe (Nose) Methicillin-SUSCEPTIB LE Staphylococcus aureus Detected Abnormal Not Detected [facility] Comment on above: Order Comment: Speci men Type: SWAB [facility] Facility[facility] Address: [address] [place] [address] Performed By: #### S APCR #### [facility] CLIA [id number] [address] [place] THERAPY NTon 04-15-2024 THERAPY NT HNO ID: [id number] Author: JUAN DIEGO WHALEY OTR/L Service: Occupational Therapy Author Type: Occupational Therapist Type: Therapy (PT/OT/Speech/Resp) Filed: 04/15/2024 14:51 Note Text: Occupational Therapy Evaluation Summary SERVICE DATE: 04/15/2024 SERVICE TIME: 1324 to 1355 ROOM: [id number] OT 6 Clicks Score: 16 DISCHARGE RECOMMENDATIONS [...] of paraplegia 2/2 Transverse myelitis, presented to [facility] from [facility] for 1 week of hip pain with progressive wounds of R hip. 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, CAD, CHF, Depression, intrathecal pump, transverse myelitis HOME LIVING Patient Lives With: Self/Alone Assistance Available: PRN Entry To Home: No Stairs Tub/Shower Type: walk in shower, transfers from w/c to shower bench Laundry: in apartment, pt completes Equipment Owned: Shower Chair, Texturing Machine Fixer, Wheelchair- Manual, Hospital Bed, Wheelchair- Power (slide [...] Time (minutes): 15 $ Evaluation - Moderate (13157) Billed Units: 1 unit TRAINING AND EDUCATION PROVIDED Activity Adaptation/Compensato ry Strategies, Altering Thinking Patterns, Bed Mobility, Benefits of In-Hospital Mobility, Functional Mobility Involving ADLs, Lower Extremity Dressing, Pain Management, Positioning, Precautions/Restricti ons, Role of Occupational Therapy, Safety/Judgment, Sitting Balance to Improve [place] with ADLs/Self-Care, Standing Balance to Improve [place] with ADLs/Self-Care THERAPEUTIC SKILLS USED Activity Dosing, [...] OTR/L PAT (more content not included)... Normal [facility] THERAPY NT HNO ID: [id number] Author: JUAN DIEGO GRIJALVA, PT Service: Physical Therapy Author Type: Physical Therapist Type: Therapy (PT/OT/Speech/Resp) Filed: 04/15/2024 14:47 Note Text: Physical Therapy Evaluation Summary SERVICE DATE: 04/15/2024 SERVICE TIME: 1330 to 1359 ROOM: [place] [address] PT 6 Clicks Score: 10 DISCHARGE RECOMMENDATIONS [...] 2/2 Transverse myelitis, presented to [facility] from [facility] for 1 week of hip pain with progressive wounds of R hip. 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, CAD, CHF, Depression, intrathecal pump, transverse myelitis HOME LIVING Patient Lives With: Self/Alone Assistance Available: PRN Entry To Home: No Stairs Tub/Shower Type: walk in shower, transfers from w/c to shower bench Laundry: in apartment, pt completes Equipment Owned: Shower Chair, Texturing Machine Fixer, Wheelchair- Manual, Hospital Bed, Wheelchair- Power (slide board) PRIOR FUNCTIONAL LEVEL Within Functional Limits Pt paralyzed from waist down, pt independent with slide board transfers and ADLs SUBJECTIVE Agreeable to PT session THERAPY DIAGNOSIS Reduced mobility-other TREATMENT INTERVENTIONS Evaluation $ Evaluation-Moderate (25232) Billed Units: 1 unit Skilled Treatment Time [...] April 15, 2024 TIME: 2:45 PM Normal [facility] Vancomycin random [Mass/Vol] on 04-15-2024 Vancomycin [Mass/Vol] 10.8 ug/mL Normal 10.0-20.0 [facility] Comment on above: Order Comment: Speci men Type: BLOOD SPECIMEN [facility]ing Facility[facility] Address: [address] [place] [address] Result Comment: Refe rence ranges and high/low indicator flags are provided as general guidelines only. The treating physician must determine appropriate target levels/dosing based on the specific clinical situation. Performed By: #### C RET1 #### [facility] CLIA [id number] [address] [place] [address] [place] Wound Cultureon 04-15-2024 WC Normal [facility] Comment on above: Performed By: #### M 100.4001, M100.3000, M100.1999 ####[facility] [id number] [place], [address] ANES POSTPROC EVALon 024 ANES POSTPROC EVAL HNO ID: [id number] Author: YOSELIN QUIROZ MD Service: Anesthesiology Author Type: Anesthesiologist Type: Anesthesia Postprocedure Evaluation Filed: 04/18/2024 22:09 Note Text: POST ANESTHESIA EVALUATION NOTE : 1950 Procedure Summary Date: 04/14/24 Room / Location: NC OR / NC OR Anesthesia Start: 1303 Anesthesia Stop: 1415 [...] April 18, 2024 TIME: 10:07 PM CSN: [id number] [facility] ANES PRE-OPon 04-14-2024 ANES PRE-OP HNO ID: [id number] Author: YOSELIN QUIROZ MD Service: Anesthesiology Author [...] 375 mg by mouth twice daily. [facility] I have interviewed and examined the patient. I have reviewed the medical record and/or the pre-anesthesia evaluation, pertinent labs, and test results. This contains updated information obtained within 48 hours of Surgery/Procedure. SIGNATURE: Yoselin Quiroz MD PATIENT NAME: Aleena Andrea DATE: April 14, 2024 TIME: 12:37 PM CSN: [id number] Normal [facility] CK SerPl-cCncon 04-14-2024 CK [Catalytic activity/Vol] 21 U/L Low 42-196 [facility] Comment on above: Order Comment: Speci men Type: BLOOD SPECIMEN Ordering Facility: [facility] Address: [address] [place] [address] Performed By: #### 5 8410-2 #### [facility] CLIA [id number] [address] [place] [address] [place] CONSULTon 04-14-2024 CONSULT HNO ID: [id number] Author: FRANCISCA SWANSON MD Service: Pain Management [...] CAD, CHF, osteoporosis, depression presented 04/13 from [facility] for increased right hip pain and progressive wounds. CTAP from [facility] showed right sided 8.5x8.3cm subcutaneous abscess extending [...] for SBO. Home pain regimen managed by [facility] includes intrathecal pump (Dilaudid, baclofen) oxycodone [...] Cancer Father 85 Ischemic Heart Disease Mother NM ( in 2001) Osteoporosis Mother other (MS) Other none other (Other) Other No breast/compensator worker/colon cancer Colon Cancer Sister 62 PAST MEDICAL [...] general symptoms(780.99) (more content not included)... Normal [facility] CONSULT HNO ID: [id number] Author: CASE ERICKSON MD Service: General Surgery [...] of right side hip wound. Presented to [facility] for right sided hip pain that has [...] Cancer Father 85 Ischemic Heart Disease Mother NM ( in 2001) Osteoporosis Mother other (MS) Other none other (Other) Other No breast/compensator worker/colon cancer Colon Cancer Sister 62 Social History [...] Septum midlin (more content not included)... Normal [facility] CONSULT PROGon 04-14-2024 CONSULT PROG HNO ID: [id number] Author: FANI ALMODOVAR RPh Service: Pharmacy Author [...] on 04/13 at 1800 per documentation from [facility]. 2. No vancomycin level has been drawn [...] questions, please contact Fani Almodovar PharmD at [phone]. Age: [age] year old Allergies: ALLERGIES Allergen [...] No results found for: NOVA Almodovar, CharlineD, [facility] CONSULT PROG HNO ID: [id number] Author: RK FERNANDEZ APRN.SOAKING PITS SUPERVISOR Service: Wound/Ostomy Author Type: Nurse Practitioner Type: Consult Progress Note Filed: 04/14/2024 12:25 Note Text: WOUND CARE SERVICE CONSULT CANE STRIPPER NOTE SERVICE DATE: 04/14/2024 SERVICE TIME: 846 [...] who is seen today with Amina Becerra, Wound/blast furnace keeper, and presented to hospital with complaints of [...] Cancer Father 85 Ischemic Heart Disease Mother NM ( in 2001) Osteoporosis Mother other (MS) Other none other (Other) Other No breast/compensator worker/colon cancer Colon Cancer Sister 62 MEDICATIONS: Current [...] Pressure Injury Stage Stage 2 Site Assessment Leyner;Red;Yellow;Sloug angela Leyla-Wound Assessment Blanchable erythema (more content not included)... Normal [facility] CRP SerPl-mCncon 04-14-2024 CRP [Mass/Vol] 2.3 mg/dL High <0.9 [facility] Comment on above: Order Comment: Speci men Type: BLOOD SPECIMEN Ordering Facility: [facility] Address: [address] [place] [address] Performed By: #### 5 8410-2 #### [facility] CLIA [id number] [address] ED NOTEon 04-14-2024 ED NOTE HNO ID: [id number] Author: CASSANDRA LAMB, EFE Service: Nursing Author [...] aware and informed Dr. Brenner as well. [facility] ED NOTE HNO ID: [id number] Author: ANAIS LEYVA RN Service: ? Author Type: Registered Nurse Type: ED Notes Filed: 04/14/2024 10:13 Note Text: Patient and sister states that BP is usually 90s systolic and as low at 70s systolic with medications. Patient asymptomatic at this time besides pain Normal [facility] ED NOTE HNO ID: [id number] Author: ANAIS LEYVA RN Service: ? Author Type: Registered Nurse Type: ED Notes Filed: 04/14/2024 09:09 Note Text: Wound care at bedside [facility] ED NOTE HNO ID: [id number] Author: ANAIS LEYVA RN Service: ? Author Type: Registered Nurse Type: ED Notes Filed: 04/14/2024 08:04 Note Text: House resident at bedside [facility] ED NOTE HNO ID: [id number] Author: ANAIS LEYVA RN Service: ? Author Type: Registered Nurse Type: ED Notes Filed: 04/14/2024 07:44 Note Text: Spoke with admitting MD regaurding low BP, awaiting order for additional fluids. Per request by MD, will page is systolic BP drops below 80 systolic Normal [facility] ED NOTE HNO ID: [id number] Author: ANAIS LEYVA RN Service: ? Author Type: Registered Nurse Type: ED Notes Filed: 04/14/2024 07:35 Note Text: Report received from previous RN. Pt on NIBP, SpO2 and monitor tech. Side rails up x2, bed low and locked, call light in reach. Patient resting comfortably at this time. BP remains low, patient appears tired but easily awaken and AANDO x3. Admitting team paged about low pressures. Normal [facility] ED NOTE HNO ID: [id number] Author: CLAUDIO MCCLOUD RN Service: ? Author Type: Registered Nurse Type: ED Notes Filed: 04/14/2024 03:15 Note Text: Bed: 17-ED Expected date: Expected time: Means of arrival: Comments: Room 45 Normal [facility] ED PROV NOTEon 04-14-2024 ED PROV NOTE HNO ID: [id number] Author: CANDELARIA ACUNA DO Service: Emergency Medicine [...] BRENNER 04/14/2424 CANDELARIA ACUNA 04/15/24 0859 Normal [facility] ED PROV NOTE HNO ID: [id number] Author: CANDELARIA ACUNA DO Service: Emergency Medicine [...] presents with: Functional Transfers: Pt transferred from [facility] by EMS for a wound and plastics consult. Pt has 3 progressive wounds on her right hip. HPI Patient is a 73-year-old female with a history of transverse myelitis, bilateral lower extremity paralysis, and CHF who presents to the ED as a transfer from the [facility] emergency department for surgical consultation. The patient states that she was diagnosed with colitis in late March and treated in the [facility]. She was then discharged to inpatient rehab but was found to have multiple sacral pressure ulcers while at rehab. She then began seeing wound care at [facility]. When she went in for wound care today she was told to go to the [facility] ED due to concern that her sacral ulcers were infected. At the [facility] emergency department a CT abdomen pelvis was [...] Cancer Father 85 Ischemic Heart Disease Mother NM ( in 2001) Osteoporosis Mother other (MS) Other none other (Other) Other No breast/compensator worker/colon cancer Colon Cancer Sister 62 Social History [...] 1) Physical (more content not included)... Normal [facility] ESR Westergren method (Bld) [Velocity]on 04-14-2024 ESR (Bld) [Velocity] 44 mm/h High 0-20 [facility] Comment on above: Order Comment: Speci men Type: BLOOD SPECIMEN Ordering Facility: [facility] Address: [address] [place] [address] Performed By: #### 5 8410-2 #### [facility] CLIA [id number] [address] [place] [address] [place] Gram Stainon 04-14-2024 GS RIGHT Gram Stain Rare Gram positive cocci 2+ Red Blood Cells No Epithelial cells Normal [facility] Comment on above: Performed By: #### M 100.4001, M100.3000, M100.1999 ####[facility] [address] [place], [address] HISTORY PHYSICALon 4 HISTORY PHYSICAL HNO ID: [id number] Author: CASE PHAN MD Service: Hospital Medicine Author Type: Resident Type: H&P Filed: 04/14/2024 21:16 Note Text: Attestation signed by Case Phan MD at 04/14/2024 9:16 PM [facility] MEDICINE SERVICE ATTENDING ATTESTATION: I saw and evaluated the patient on rounds on 04/14/24. Discussed case with the medicine team and agree with resident's findings and plan as documented in the resident's note. I spent a total of >75 minutes on the date of the service which included preparing to see the patient, qgkr-ea-ptuf patient care, completing clinical documentation, obtaining and/or reviewing separately obtained history, and performing a medically appropriate examination. See additional comments of progress notes on 04/14/2024. Case Phan MD [facility] HANDP PATIENT NAME: Aleena Andrea ADMITTED FOR: [...] tizanidine, naproxen Patient presented to [facility] from [facility] by EMS for hip pain for 1 week with progressive wounds on R hip. CTAP from [facility] showed right sided 8.5x8.3cm subcutaneous abscess extending [...] Cancer Father 85 Ischemic Heart Disease Mother [place] ( in 2001) Osteoporosis Mother other (MS) Other none other (Other) Other No breast/compensator worker/colon cancer Colon Cancer Sister 62 Social History [...] tablets by (more content not included)... Normal [facility] HbA1c (Bld)on 04-14-2024 Average glucose Estimated from glycated hemoglobin (Bld) [Mass/Vol] 82 mg/dL Normal [facility] Comment on above: Order Comment: Speci men Type: BLOOD SPECIMEN Ordering Facility: [facility] Address: [address] [place] [address] Result Comment: eAG: (Estimated average glucose) is a calculated value from HgbA1c and is open claims representative of the average blood glucose level in the last 2-3 month period. Performed By: #### 5 8410-2 #### [facility] CLIA [id number] [address] [place] [address] [place] HbA1c (Bld) [Mass fraction] 4.5 % Normal 4.3-5.6 [facility] Comment on above: Order Comment: Shayy abhishek Type: BLOOD SPECIMEN Ordering Facility: [facility] Address: [address] [place] [address] Result Comment: Amer ican Diabetes Association guidelines indicate that patients with HgbA1c in the range 5.7-6.4% are at increased risk for development of diabetes, and intervention by lifestyle modification may be beneficial. HgbA1c greater or equal to 6.5% is considered diagnostic of diabetes. Performed By: #### 5 8410-2 #### [facility] CLIA [id number] [address] [place] LIPID PANEL, NONFASTINGon Cholesterol [Mass/Vol] 89 mg/dL Normal <200 [facility] Comment on above: Order Comment: Shayy abhishek Type: BLOOD SPECIMEN Ordering Facility: [facility] Address: [address] [place] [address] Result Comment: <200 mg/dL, Desirable 200-239 mg/dL, Borderline high >239 mg/dL, High Performed By: #### 5 8410-2 #### [facility] CLIA [id number] [address] [place] HDL CHOLESTEROL, NF 29 mg/dL Low >39 [facility] Comment on above: Order Comment: Shayy abhishek Type: BLOOD SPECIMEN Ordering Facility: [facility] Address: [address] [place] [address] Result Comment: 40-5 9 mg/dL, Acceptable >59 mg/dL, High: Negative risk factor for coronary heart disease <40 mg/dL, Low: Positive risk factor for coronary heart disease Performed By: #### 5 8410-2 #### [facility] CLIA [id number] [address] [place] LDL CHOLESTEROL, NF 51 mg/dL Normal <100 [facility] Comment on above: Order Comment: Shayy abhishek Type: BLOOD SPECIMEN Ordering Facility: [facility] Address: [address] [place] [address] Result Comment: <100 mg/dL, Optimal 100-129 mg/dL, Near optimal/above optimal 130-159 mg/dL, Borderline high 160-189 mg/dL, High >189 mg/dL, Very high Secondary prevention optimal LDL Cholesterol levels are recommended to be < 70 mg/dL Performed By: #### 5 8410-2 #### [facility] CLIA [id number] [address] LDL/HDL RATIO, NF 1.76 mg/dL Normal <2.54 [facility] Comment on above: Order Comment: Speci men Type: BLOOD SPECIMEN Ordering Facility: [facility] Address: [address] [place] [address] Result Comment: Refe rence: 1. National Cholesterol Education Program ATP III Guideline At-A-Glance Quick Desk Reference: National Heart, Lung, and Blood Thompson. National Institutes of Health. 2001: NIH Publication No. 01-3305. 2. An International Atherosclerosis Society position paper: global recommendations for the management of dyslipidemia: executive summary, Atherosclerosis. 2014: 232(2):410-413. Performed By: #### 5 8410-2 #### [facility] CLIA [id number] [address] NON HDL CHOL, NF 60 mg/dL Normal <130 [facility] Comment on above: Order Comment: Shayy abhishek Type: BLOOD SPECIMEN Ordering Facility: [facility] Address: [address] [place] [address] Result Comment: <130 mg/dL, Optimal 130-159 mg/dL, Near optimal/above optimal 160-189 mg/dL, Borderline high 190-219 mg/dL, High >219 mg/dL, Very high Secondary prevention optimal non HDL Cholesterol levels are recommended to be <100 mg/dL Performed By: #### 5 8410-2 #### [facility] CLIA [id number] [address] T CHOL/HDL RATIO NF 3.07 mg/dL Normal <5.10 [facility] Comment on above: Order Comment: Shayy abhishek Type: BLOOD SPECIMEN Ordering Facility: [facility] Address: [address] [place] [address] Performed By: #### 5 8410-2 #### [facility] CLIA [id number] [address] TRIGLYCERIDES, NF 47 mg/dL Normal <150 [facility] Comment on above: Order Comment: Speci men Type: BLOOD SPECIMEN Ordering Facility: [facility] Address: [address] [place] [address] Result Comment: <150 mg/dL, Normal 150-199 mg/dL, Borderline high 200-499 mg/dL, High >499 mg/dL, Very high Performed By: #### 5 8410-2 #### [facility] CLIA [id number] [address] VLDL CHOLESTEROL, NF 9 mg/dL Normal <30 [facility] Comment on above: Order Comment: Specantony weiss Type: BLOOD SPECIMEN Ordering Facility: [facility] Address: [address] [place] [address] Performed By: #### 5 8410-2 #### [facility] CLIA [id number] [address] NURSING PROGon 04-14-2024 NURSING PROG HNO ID: [id number] Author: ABDIAZIZ CONDE RN Service: Nursing Author [...] note was completed by: Abdiaziz Conde RN [facility] OPERATIVE NOon 04-14-2024 OPERATIVE NO HNO ID: [id number] Author: CASE ERICKSON MD Service: General Surgery Author Type: Resident Type: Operative Report Filed: 04/30/2024 16:14 Note Text: Attestation signed by Case Erickson MD at 04/30/2024 4:14 PM Attestation: I was present for the critical and alvarez portions of the surgery and I was immediately available to provide assistance. Case Erickson MD OPERATIVE/PROCEDURE REPORT LOG ID: [id number] Surgery/Procedure Date: 04/14/2024 Incision/Procedure Start Time: 1:18 PM Incision Close/Procedure End Time: 1:36 PM Surgeon(s)/Procedural ist(s) and Spot Machine Operator(s): Surgeons and Role: * Case Erickson MD [...] TIME: 2:28 PM PAGER/CONTACT #: [phone] Normal [facility] Urinalysis complete panel (U )on 04-14-2024 Bilirubin Ql (U) Negative Normal Negative [facility] Comment on above: Order Comment: Speci men Type: BLOOD SPECIMEN Ordering Facility: [facility] Address: [address] [place] [address] Performed By: #### 5 8410-2 #### [facility] CLIA [id number] [address] [place] [address] [place] Clarity (Unsp spec) Clear Normal Clear [facility] Comment on above: Order Comment: Speci men Type: BLOOD SPECIMEN Ordering Facility: [facility] Address: [address] [place] [address] Performed By: #### 5 8410-2 #### [facility] CLIA [id number] [address] [place] Color (U) Light Yellow Normal yellow [facility] Comment on above: Order Comment: Speci men Type: BLOOD SPECIMEN Ordering Facility: [facility] Address: [address] [place] [address] Performed By: #### 5 8410-2 #### [facility] CLIA [id number] [address] Glucose Test strip (U) [Mass/Vol] Negative Normal Trace, Negative [facility] Comment on above: Order Comment: Speci men Type: BLOOD SPECIMEN Ordering Facility: [facility] Address: [address] [place] [address] Performed By: #### 5 8410-2 #### [facility] CLIA [id number] [address] Hemoglobin Ql (U) Negative Normal Negative, Trace [facility] Comment on above: Order Comment: Speci men Type: BLOOD SPECIMEN Ordering Facility: [facility] Address: [facility] [place] [address] Performed By: #### 5 8410-2 #### [facility] CLIA [id number] [address] Ketones Ql (U) Negative Normal Negative, Trace [facility] Comment on above: Order Comment: Speci men Type: BLOOD SPECIMEN Ordering Facility: [facility] Address: [address] [place] [address] Performed By: #### 5 8410-2 #### [facility] CLIA [id number] [address] Leukocyte esterase Test strip Ql (U) Negative Normal Negative, 25 Ivania/uL [facility] Comment on above: Order Comment: Speci men Type: BLOOD SPECIMEN Ordering Facility: [facility] Address: [address] [place] [address] Performed By: #### 5 8410-2 #### [facility] CLIA [id number] [address] Nitrite Ql (U) Negative Normal Negative [facility] Comment on above: Order Comment: Speci men Type: BLOOD SPECIMEN Ordering Facility: [facility] Address: [address] [place] [address] Performed By: #### 5 8410-2 #### [facility] CLIA [id number] [address] pH (U) 7.0 [pH] Normal 5.0-8.0 [facility] Comment on above: Order Comment: Speci men Type: BLOOD SPECIMEN Ordering Facility: [facility] Address: [address] [place] [address] Performed By: #### 5 8410-2 #### [facility] CLIA [id number] [address] Protein (U) [Mass/Vol] Negative Normal Trace , Negative [facility] Comment on above: Order Comment: Speci men Type: BLOOD SPECIMEN Ordering Facility: [facility] Address: [address] [place] [address] Performed By: #### 5 8410-2 #### [facility] CLIA [id number] [address] RBC LM.HPF (Urine sed) [#/Area] 3-5 /HPF Abnormal 0-3 /HPF [facility] Comment on above: Order Comment: Speci men Type: BLOOD SPECIMEN Ordering Facility: [facility] Address: [address] [place] [address] Performed By: #### 5 8410-2 #### [facility] CLIA [id number] [address] Specific gravity (U) [Rel density] 1.015 Normal 1.005-1.030 [facility] Comment on above: Order Comment: Speci men Type: BLOOD SPECIMEN Ordering Facility: [facility] Address: [address] [place] [address] Performed By: #### 5 8410-2 #### [facility] CLIA [id number] [address] Urobilinogen Ql (U) Normal Normal Normal [facility] Comment on above: Order Comment: Speci men Type: BLOOD SPECIMEN Ordering Facility: [facility] Address: [address] [place] [address] Performed By: #### 5 8410-2 #### [facility] CLIA [id number] [address] [place] WBC LM.HPF (Urine sed) [#/Area] 0-5 /HPF Normal 0-5 /HPF [facility] Comment on above: Order Comment: Speci men Type: BLOOD SPECIMEN Ordering Facility: [facility] Address: [address] [place] [address] Performed By: #### 5 8410-2 #### [facility] CLIA [id number] [address] [place] Bacteria Bld Culton 04-13-20 24 Bacteria identified Cx Nom (Bld) CULTURE, BLOOD: No growth 5 days Normal [facility] Comment on above: Performed By: #### 6 00-7 #### [facility] CLIA [id number] [address] OF [facility] Bacteria identified Cx Nom (Bld) ORGANISM ID: 1 Culture report of Staphylococcus hominis Probable contaminant. Susceptibility testing will not be performed. Call lab within 72 hours to initiate workup if clinically indicated. GRAM STAIN: Gram positive cocci in clusters Abnormal [facility] Comment on above: Performed By: #### I DBCGP, 600-7 ####[facility] [id number] [address] [place] Basic Metabolic Profile (BMP )on 04-13-2024 BUN/CRE 22.4 RATIO High 10-20 [facility] Comment on above: Performed By: #### L 101.9900, L501.6710, L100.0100, L500.2500 ####[facility] [address] [place], [address] CA,Total 8.0 mg/dL Low 8.5-10.1 [facility] Comment on above: Performed By: #### L 101.9900, L501.6710, L100.0100, L500.2500 ####[facility] [address] [place], [address] Chloride [Moles/Vol] 98 mmol/L Normal 98-107 [facility] Comment on above: Performed By: #### L 101.9900, L501.6710, L100.0100, L500.2500 ####[facility] [address] [place], [address] CO2 [Moles/Vol] 30.0 mmol/L Normal 21.0-32.0 [facility] Comment on above: Performed By: #### L 101.9900, L501.6710, L100.0100, L500.2500 ####[facility] [address] [place], [address] Creatinine [Mass/Vol] 0.40 mg/dL Low 0.55-1.02 [facility] Comment on above: Result Comment: The validity of the calculated GFR GFRAA in patients over70 years has not been determined. Clinical correlation isessential. Performed By: #### L 101.9900, L501.6710, L100.0100, L500.2500 ####[facility] [address] [place], [address] ECRCL 50.27 ml/min Normal [facility] Comment on above: Performed By: #### L 101.9900, L501.6710, L100.0100, L500.2500 ####[facility] [address] [place], [address] EST GFR - AA 200 mL/min Normal >60 [facility] Comment on above: Result Comment: Afri can Burmese GFR Calc Performed By: #### L 101.9900, L501.6710, L100.0100, L500.2500 ####[facility] [address] [place], [address] GAP 2 Low 5-15 [facility] Comment on above: Performed By: #### L 101.9900, L501.6710, L100.0100, L500.2500 ####[facility] [address] [place], [address] GFR/1.73 sq M.predicted among non-blacks MDRD (S/P/Bld) [Vol rate/Area] 165 mL/min/{1.73_m2} Normal >60 [facility] Comment on above: Result Comment: Non- GFR Calc Performed By: #### L 101.9900, L501.6710, L100.0100, L500.2500 ####[facility] [address] [place], [address] Glucose [Mass/Vol] 126 mg/dL High 74-106 [facility] Comment on above: Result Comment: Fast ing Glucose result greater than or equal to 126 mg/dLsuggests DIABETES MELLITUS per A.D.A. criteria. Performed By: #### L 101.9900, L501.6710, L100.0100, L500.2500 ####[facility] [address] [place], [address] Potassium [Moles/Vol] 4.1 mmol/L Normal 3.5-5.1 [facility] Comment on above: Performed By: #### L 101.9900, L501.6710, L100.0100, L500.2500 ####[facility] [address] [place], [address] Sodium [Moles/Vol] 130 mmol/L Low 136-145 [facility] [facility] Comment on above: Performed By: #### L 101.9900, L501.6710, L100.0100, L500.2500 ####[facility] [address] [place], [address] Urea nitrogen [Mass/Vol] 9 mg/dL Normal 7-18 [facility] Comment on above: Performed By: #### L 101.9900, L501.6710, L100.0100, L500.2500 ####[facility] [address] [place], [address] CBC W Auto Differential pane l (Bld)on 04-13-2024 Basophils (Bld) [#/Vol] 0.09 10*3/uL Normal <0.11 [facility] Comment on above: Order Comment: Speci men Type: BLOOD SPECIMEN Ordering Facility: [facility] Address: [address] [place] [address] Performed By: #### 5 7021-8 #### [facility] CLIA [id number] [address] [place] Basophils/100 WBC (Bld) 0.8 % Normal [facility] Comment on above: Order Comment: Speci men Type: BLOOD SPECIMEN Ordering Facility: [facility] Address: [address] [place] [address] Performed By: #### 5 7021-8 #### [facility] CLIA [id number] [address] [place] Differential cell count method Nom (Bld) Auto Normal [facility] Comment on above: Order Comment: Speci men Type: BLOOD SPECIMEN Ordering Facility: [facility] Address: [address] [place] [address] Performed By: #### 5 7021-8 #### [facility] CLIA [id number] [address] [place] Eosinophils (Bld) [#/Vol] 0.11 10*3/uL Normal <0.46 [facility] Comment on above: Order Comment: Speci men Type: BLOOD SPECIMEN Ordering Facility: [facility] Address: [address] [place] [address] Performed By: #### 5 7021-8 #### [facility] CLIA [id number] [address] [place] Eosinophils/100 WBC (Bld) 1.0 % Normal [facility] Comment on above: Order Comment: Speci men Type: BLOOD SPECIMEN Ordering Facility: [facility] Address: [address] [place] [address] Performed By: #### 5 7021-8 #### [facility] CLIA [id number] [address] [place] Erythrocyte distribution width (RBC) [Ratio] 15.8 % High 11.5-15.0 [facility] Comment on above: Order Comment: Speci men Type: BLOOD SPECIMEN Ordering Facility: [facility] Address: [address] [place] [address] Performed By: #### 5 7021-8 #### [facility] CLIA [id number] [address] [place] Hematocrit (Bld) [Volume fraction] 28.1 % Low 36.0-46.0 [facility] Comment on above: Order Comment: Speci men Type: BLOOD SPECIMEN Ordering Facility: [facility] Address: [address] [place] [address] Performed By: #### 5 7021-8 #### [facility] CLIA [id number] [address] [place] Hemoglobin (Bld) [Mass/Vol] 9.0 g/dL Low 11.5-15.5 [facility] Comment on above: Order Comment: Speci men Type: BLOOD SPECIMEN Ordering Facility: [facility] Address: [address] [place] [address] Performed By: #### 5 7021-8 #### [facility] CLIA [id number] [address] OF [facility] Immature granulocytes (Bld) [#/Vol] 0.24 10*3/uL High <0.10 [facility] Comment on above: Order Comment: Speci men Type: BLOOD SPECIMEN Ordering Facility: [facility] Address: [address] [place] [address] Performed By: #### 5 7021-8 #### [facility] CLIA [id number] [address] [place] Immature granulocytes/100 WBC (Bld) 2.1 % Normal [facility] Comment on above: Order Comment: Speci men Type: BLOOD SPECIMEN Ordering Facility: [facility] Address: [address] [place] [address] Performed By: #### 5 7021-8 #### [facility] CLIA [id number] [address] Lymphocytes (Bld) [#/Vol] 1.16 10*3/uL Normal 1.00-4.0 0 [facility] Comment on above: Order Comment: Speci men Type: BLOOD SPECIMEN Ordering Facility: [facility] Address: [address] [place] [address] Performed By: #### 5 7021-8 #### [facility] CLIA [id number] [address] Lymphocytes/100 WBC (Bld) 10.0 % Normal [facility] Comment on above: Order Comment: Speci men Type: BLOOD SPECIMEN Ordering Facility: [facility] Address: [address] [place] [address] Performed By: #### 5 7021-8 #### [facility] CLIA [id number] [address] MCH (RBC) [Entitic mass] 32.5 pg Normal 26.0-34.0 [facility] Comment on above: Order Comment: Speci men Type: BLOOD SPECIMEN Ordering Facility: [facility] Address: [address] [place] [address] Performed By: #### 5 7021-8 #### [facility] CLIA [id number] [address] MCHC (RBC) [Mass/Vol] 32.0 g/dL Normal 30.5-36.0 [facility] Comment on above: Order Comment: Speci men Type: BLOOD SPECIMEN Ordering Facility: [facility] Address: [address] [place] [address] Performed By: #### 5 7021-8 #### [facility] CLIA [id number] [address] MCV (RBC) [Entitic vol] 101.4 fL High 80.0-100.0 [facility] Comment on above: Order Comment: Speci men Type: BLOOD SPECIMEN Ordering Facility: [facility] Address: [address] [place] [address] Performed By: #### 5 7021-8 #### [facility] CLIA [id number] [address] [place] Monocytes (Bld) [#/Vol] 0.69 10*3/uL Normal <0.87 [facility] Comment on above: Order Comment: Speci men Type: BLOOD SPECIMEN Ordering Facility: [facility] Address: [address] [place] [address] Performed By: #### 5 7021-8 #### [facility] CLIA [id number] [address] Monocytes/100 WBC (Bld) 6.0 % Normal [facility] Comment on above: Order Comment: Speci men Type: BLOOD SPECIMEN Ordering Facility: [facility] Address: [address] [place] [address] Performed By: #### 5 7021-8 #### [facility] CLIA [id number] [address] [place] Neutrophils (Bld) [#/Vol] 9.28 10*3/uL High 1.45-7.5 0 [facility] Comment on above: Order Comment: Speci men Type: BLOOD SPECIMEN Ordering Facility: [facility] Address: [address] [place] [address] Performed By: #### 5 7021-8 #### [facility] CLIA [id number] [address] [place] Neutrophils/100 WBC (Bld) 80.1 % Normal [facility] Comment on above: Order Comment: Speci men Type: BLOOD SPECIMEN Ordering Facility: [facility] Address: [address] [place] [address] Performed By: #### 5 7021-8 #### [facility] CLIA [id number] [address] [place] Nucleated RBC (Bld) [#/Vol] 10*3/uL Normal <0.01 [facility] Comment on above: Order Comment: Speci men Type: BLOOD SPECIMEN Ordering Facility: [facility] Address: [address] [place] [address] Performed By: #### 5 7021-8 #### [facility] CLIA [id number] [address] [place] Nucleated RBC/100 WBC (Bld) [Ratio] 0.0 /100 WBC Normal [facility] Comment on above: Order Comment: Speci men Type: BLOOD SPECIMEN Ordering Facility: [facility] Address: [address] [place] [address] Performed By: #### 5 7021-8 #### [facility] CLIA [id number] [address] [place] Platelet mean volume (Bld) [Entitic vol] 9.0 fL Normal 9.0-12.7 [facility] Comment on above: Order Comment: Speci men Type: BLOOD SPECIMEN Ordering Facility: [facility] Address: [address] [place] [address] Performed By: #### 5 7021-8 #### [facility] CLIA [id number] [address] [place] Platelets (Bld) [#/Vol] 617 10*3/uL High 150-400 [facility] Comment on above: Order Comment: Speci men Type: BLOOD SPECIMEN Ordering Facility: [facility] Address: [address] [place] [address] Performed By: #### 5 7021-8 #### [facility] CLIA [id number] [address] [place] RBC (Bld) [#/Vol] 2.77 10*6/uL Low 3.90-5.20 [facility] Comment on above: Order Comment: Speci men Type: BLOOD SPECIMEN Ordering Facility: [facility] Address: [address] [place] [address] Performed By: #### 5 7021-8 #### [facility] CLIA [id number] 1 [place] [address] [place] WBC (Bld) [#/Vol] 11.57 10*3/uL High 3.70-11.00 [facility] Comment on above: Order Comment: Speci men Type: BLOOD SPECIMEN Ordering Facility: [facility] Address: [address] [place] [address] Performed By: #### 5 7021-8 #### [facility] CLIA [id number] 1 [place] [address] [place] CBC W/Diff, Automatedon 12- Absolute Lymph 0.56 X10 3/uL Low 0.83-4.51 [facility] Comment on above: Performed By: #### L 101.9900, L501.6710, L100.0100, L500.2500 ####[facility] [address] [place], [address] Absolute Neut 10.1 X10 3/uL High 2.0-7.7 [facility] Comment on above: Performed By: #### L 101.9900, L501.6710, L100.0100, L500.2500 ####[facility] [address] [place], [address] Basophils/100 WBC (Bld) 0.6 % Normal 0-1 [facility] Comment on above: Performed By: #### L 101.9900, L501.6710, L100.0100, L500.2500 ####[facility] [address] [place], [address] Eosinophils/100 WBC (Bld) 0.4 % Normal 0-5 [facility] Comment on above: Performed By: #### L 101.9900, L501.6710, L100.0100, L500.2500 ####[facility] [address] [place], [address] Erythrocyte distribution width (RBC) [Ratio] 15.8 % High 11.6-14.6 [facility] Comment on above: Performed By: #### L 101.9900, L501.6710, L100.0100, L500.2500 ####[facility] [address] [place], [address] Hematocrit (Bld) [Volume fraction] 26.6 % Low 37-47 [facility] Comment on above: Performed By: #### L 101.9900, L501.6710, L100.0100, L500.2500 ####[facility] [address] [place], [address] Hemoglobin (Bld) [Mass/Vol] 8.6 g/dL Low 12.0-15.0 [facility] Comment on above: Performed By: #### L 101.9900, L501.6710, L100.0100, L500.2500 ####[facility] [address] [place], [address] IG% 1.700 High 0.0-0.9 [facility] Comment on above: Result Comment: IG% - Immature Granulocytes (promyelocytes, myelocytes andmetamyelocytes) > 1% indicates that a LEFT SHIFT is Present. Performed By: #### L 101.9900, L501.6710, L100.0100, L500.2500 ####[facility] [address] [place], [address] Lymphocytes/100 WBC (Bld) 4.7 % Low 19-41 [facility] Comment on above: Performed By: #### L 101.9900, L501.6710, L100.0100, L500.2500 ####[facility] [address] [place], [address] MCH (RBC) [Entitic mass] 31.9 pg Normal 27.0-32.0 [facility] Comment on above: Performed By: #### L 101.9900, L501.6710, L100.0100, L500.2500 ####[facility] [address] [place], [address] MCHC (RBC) [Mass/Vol] 32.3 g/dL Normal 32-36 [facility] Comment on above: Performed By: #### L 101.9900, L501.6710, L100.0100, L500.2500 ####[facility] [address] [place], [address] MCV (RBC) [Entitic vol] 98.5 fL Normal 81-99 [facility] Comment on above: Performed By: #### L 101.9900, L501.6710, L100.0100, L500.2500 ####[facility] [address] [place], [address] Monocytes/100 WBC (Bld) 8.0 % Normal 0-10 [facility] Comment on above: Performed By: #### L 101.9900, L501.6710, L100.0100, L500.2500 ####[facility] [address] [place], [address] Neutrophils/100 WBC (Bld) 84.6 % High 47-70 [facility] Comment on above: Performed By: #### L 101.9900, L501.6710, L100.0100, L500.2500 ####[facility] [address] [place], [address] Nucleated RBC (Bld) [#/Vol] 0 10*3/uL Normal 0-5 [facility] Comment on above: Performed By: #### L 101.9900, L501.6710, L100.0100, L500.2500 ####[facility] [address] [place], [address] Platelet mean volume (Bld) [Entitic vol] 9.2 fL Normal 6.2-12.0 [facility] Comment on above: Performed By: #### L 101.9900, L501.6710, L100.0100, L500.2500 ####[facility] [address] [place], [address] Platelets (Bld) [#/Vol] 617 10*3/uL High 150-450 [facility] Comment on above: Performed By: #### L 101.9900, L501.6710, L100.0100, L500.2500 ####[facility] [address] [place], [address] RBC (Bld) [#/Vol] 2.70 10*6/uL Low 4.2-5.4 [facility] Comment on above: Performed By: #### L 101.9900, L501.6710, L100.0100, L500.2500 ####[facility] [address] [place], [address] RDW SD 55.7 fl High 35.1-43.9 [facility] Comment on above: Performed By: #### L 101.9900, L501.6710, L100.0100, L500.2500 ####[facility] [address] [place], [address] WBC (Bld) [#/Vol] 11.9 10*3/uL High 4.4-11.0 [facility] Comment on above: Performed By: #### L 101.9900, L501.6710, L100.0100, L500.2500 ####[facility] [address] [place], [address] CRPon 04-13-2024 C-REACTIVE PROT 24.90 mg/L High 0.0-3.0 [facility] Comment on above: Result Comment: C-Re active Protein (CRP) provides useful information for thediagnosis, therapy and monitoring of inflammatory processesand associated diseases. For the evaluation of Relative Riskfor Cardiovascular Disease, a High Sensitivity CRP (HSCRP)should be ordered. Performed By: #### L 101.9900, L501.6710, L100.0100, L500.2500 ####[facility] [address] [place], [address] Comprehensive metabolic 2000 panelon 04-13-2024 Albumin [Mass/Vol] 2.7 g/dL Low 3.9-4.9 [facility] Comment on above: Order Comment: Speci men Type: BLOOD SPECIMEN Ordering Facility: [facility] Address: [address] [place] [address] Performed By: #### C RET1 #### [facility] CLIA [id number] [address] ALP [Catalytic activity/Vol] 84 U/L Normal 34-123 [facility] Comment on above: Order Comment: Speci men Type: BLOOD SPECIMEN Ordering Facility: [facility] Address: [address] [place] [address] Performed By: #### C RET1 #### [facility] CLIA [id number] [address] OF [facility] ALT With P-5'-P [Catalytic activity/Vol] 9 U/L Normal 7-38 [facility] Comment on above: Order Comment: Speci men Type: BLOOD SPECIMEN Ordering Facility: [facility] Address: [address] [place] [address] Performed By: #### C RET1 #### [facility] CLIA [id number] [address] Anion gap [Moles/Vol] 8 mmol/L Normal 8-15 [facility] Comment on above: Order Comment: Speci men Type: BLOOD SPECIMEN Ordering Facility: [facility] Address: [facility] [place] [address] Performed By: #### C RET1 #### [facility] CLIA [id number] [address] [place] AST With P-5'-P [Catalytic activity/Vol] 16 U/L Normal 13-35 [facility] Comment on above: Order Comment: Speci men Type: BLOOD SPECIMEN Ordering Facility: [facility] Address: [address] [place] [address] Performed By: #### C RET1 #### [facility] CLIA [id number] [address] [place] Bilirubin [Mass/Vol] 0.2 mg/dL Normal 0.2-1.3 [facility] Comment on above: Order Comment: Speci men Type: BLOOD SPECIMEN Ordering Facility: [facility] Address: [address] [place] [address] Performed By: #### C RET1 #### [facility] CLIA [id number] 1 [place] [address] [place] Calcium [Mass/Vol] 8.2 mg/dL Low 8.5-10.2 [facility] Comment on above: Order Comment: Speci men Type: BLOOD SPECIMEN Ordering Facility: [facility] Address: [address] [place] [address] Performed By: #### C RET1 #### [facility] CLIA [id number] 1 [place] [address] [place] Chloride [Moles/Vol] 95 mmol/L Low 98-107 [facility] Comment on above: Order Comment: Speci men Type: BLOOD SPECIMEN Ordering Facility: [facility] Address: [address] [place] [address] Performed By: #### C RET1 #### [facility] CLIA [id number] 1 [place] [address] [place] CO2 [Moles/Vol] 28 mmol/L Normal 22-30 [facility] Comment on above: Order Comment: Speci men Type: BLOOD SPECIMEN Ordering Facility: [facility] Address: [facility] [place] [address] Performed By: #### C RET1 #### [facility] CLIA [id number] 1 [place] [address] [place] Creatinine [Mass/Vol] 0.36 mg/dL Low 0.58-0.96 [facility] Comment on above: Order Comment: Shayy weiss Type: BLOOD SPECIMEN Ordering Facility: [facility] Address: [address] [place] [address] Performed By: #### C RET1 #### [facility] CLIA [id number] [address] [place] Creatinine and Glomerular filtration rate.predicted panel (S/P/Bld) 108 mL/min/1.73m??? Normal >=60 [facility] Comment on above: Order Comment: Shayy weiss Type: BLOOD SPECIMEN Ordering Facility: [facility] Address: [address] [place] [address] Result Comment: Kristina mated Glomerular Filtration Rate [...] GFR. Performed By: #### C RET1 #### [facility] CLIA [id number] [address] [place] [address] [place] Glucose [Mass/Vol] 86 mg/dL Normal 74-99 [facility] Comment on above: Order Comment: Shayy weiss Type: BLOOD SPECIMEN Ordering Facility: [facility] Address: [address] [place] [address] Result Comment: The [place] [employer] (ADA) provides guidance for cutoff [...] Standards of Medical Care in Diabetes 2016, [place] [employer]. Diabetes Care. 2016.39(Suppl 1). Performed By: #### C RET1 #### [facility] CLIA [id number] [address] [place] Potassium [Moles/Vol] 3.7 mmol/L Normal 3.7-5.1 [facility] Comment on above: Order Comment: Speci men Type: BLOOD SPECIMEN Ordering Facility: [facility] Address: [address] [place] [address] Performed By: #### C RET1 #### [facility] CLIA [id number] [address] [place] Protein [Mass/Vol] 6.5 g/dL Normal 6.3-8.0 [facility] Comment on above: Order Comment: Speci men Type: BLOOD SPECIMEN Ordering Facility: [facility] Address: [address] [place] [address] Performed By: #### C RET1 #### [facility] CLIA [id number] [address] OF [facility] Sodium [Moles/Vol] 131 mmol/L Low 136-144 [facility] Comment on above: Order Comment: Speci men Type: BLOOD SPECIMEN Ordering Facility: [facility] Address: [address] [place] [address] Performed By: #### C RET1 #### [facility] CLIA [id number] [address] OF [facility] Urea nitrogen [Mass/Vol] 6 mg/dL Low 7-21 [facility] Comment on above: Order Comment: Speci men Type: BLOOD SPECIMEN Ordering Facility: [facility] Address: [address] [place] [address] Performed By: #### C RET1 #### [facility] CLIA [id number] [address] [place] [address] OF [facility] ED NOTEon 04-13-2024 ED NOTE HNO ID: [id number] Author: CASSANDRA LAMB, EFE Service: Nursing Author Type: Registered Nurse Type: ED Notes Filed: 04/13/2024 22:06 Note Text: Pt is asking about her trazadone and clonidine for this evening. 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 Pt is aANDox3. 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 Pt is aANDox3. Pt is paralyzed from the waste down d/t transverse myelitis Normal [facility] ED NOTE HNO ID: [id number] Author: CLAUDIO MCCLOUD RN Service: ? Author Type: Registered Nurse Type: ED Notes Filed: 04/13/2024 21:57 Note Text: Bed: 45-ED Expected date: Expected time: Means of arrival: Comments: Que transfer Normal [facility] Emergency Department Summary on 04-13-2024 Emergency Department Summary Normal [facility] Erythrocyte Sed Rateon 04-13 SED RATE 40 mm/hr High 0-30 [facility] Comment on above: Performed By: #### L 101.9900, L501.6710, L100.0100, L500.2500 ####[facility] [address] [place], [address] GRAM POSITIVE ORGANISM ID BY MICROARRAY (intelworksIGENE)on 04-13-2024 GRAM POSITIVE ORGANISM ID BY MICROARRAY (intelworksIGENE) BCID INTERPRETATION: Coagulase negative staphylococci (CoNS, not S. lugdunensis) detected by microarray. Single positive cultures of CoNS usually represent contamination. Call lab within 72 hours if further work up is required. Negative for Streptococcus spp. and Enterococcus spp. by microarray. Abnormal [facility] Comment on above: Performed By: #### I DBCGP, 600-7 #### [facility] CLIA [id number] [address] [place] Lactic Acidon 04-13-2024 Lactate [Moles/Vol] 0.7 mmol/L Normal 0.4-1.9 [facility] Comment on above: Order Comment: Y Performed By: #### L 503.6005 ####[facility] [facility] [address] [place], [address] Pelvis WITH IV Contraston Pelvis WITH IV Contrast Normal [facility] SEPSIS LACTATE W/ REFLEX (IN ITIAL)on 04-13-2024 Lactate [Moles/Vol] 0.6 mmol/L Normal 0.0-2.0 [facility] Comment on above: Order Comment: Speci men Type: BLOOD SPECIMEN Ordering Facility: [facility] Address: [address] [place] [address] Performed By: #### 5 8410-2 #### [facility] CLIA [id number] [address] [place], [place] [id number] [place] [address] OF [place]SER Basic Metabolic Profile (BMP )on 04-07-2024 BUN Normal 7-18 [facility] Comment on above: Result Comment: Canc elled via OM: Order cancelled - Patient discharged Performed By: #### L 100.0100, L500.2500 ####[facility] [address] [place], [address] BUN/CRE Normal 10-20 [facility] Comment on above: Result Comment: Canc elled via OM: Order cancelled - Patient discharged Performed By: #### L 100.0100, L500.2500 ####[facility] [address] [place], [address] CA,Total Normal 8.5-10.1 [facility] Comment on above: Result Comment: Canc elled via OM: Order cancelled - Patient discharged Performed By: #### L 100.0100, L500.2500 ####[facility] [address] [place], [address] CL Normal 98-107 [facility] Comment on above: Result Comment: Canc elled via OM: Order cancelled - Patient discharged Performed By: #### L 100.0100, L500.2500 ####[facility] [address] [place], [address] CO2 Normal 21.0-32.0 [facility] Comment on above: Result Comment: Canc elled via OM: Order cancelled - Patient discharged Performed By: #### L 100.0100, L500.2500 ####[facility] [address] [place], [address] CREAT,SERUM Normal 0.55-1.02 [facility] Comment on above: Result Comment: Canc elled via OM: Order cancelled - Patient discharged Performed By: #### L 100.0100, L500.2500 ####[facility] [address] [facility] [address] EST GFR Normal >60 [facility] Comment on above: Result Comment: Canc elled via OM: Order cancelled - Patient discharged Performed By: #### L 100.0100, L500.2500 ####[facility] [address] [place], [address] EST GFR - AA Normal >60 [facility] Comment on above: Result Comment: Canc elled via OM: Order cancelled - Patient discharged Performed By: #### L 100.0100, L500.2500 ####[facility] [address] [place], [address] GAP Normal 5-15 [facility] Comment on above: Result Comment: Canc elled via OM: Order cancelled - Patient discharged Performed By: #### L 100.0100, L500.2500 ####[facility] [address] [place], [address] GLU Normal 74-106 [facility] Comment on above: Result Comment: Canc elled via OM: Order cancelled - Patient discharged Performed By: #### L 100.0100, L500.2500 ####[facility] [address] [place], [address] Potassium Normal 3.5-5.1 [facility] Comment on above: Result Comment: Canc elled via OM: Order cancelled - Patient discharged Performed By: #### L 100.0100, L500.2500 ####[facility] [address] [place], [address] Basic Metabolic Profile (BMP) Normal 136-145 [facility] Comment on above: Result Comment: Canc elled via OM: Order cancelled - Patient discharged Performed By: #### L 100.0100, L500.2500 ####[facility] [address] [place], [address] CBC W/Diff, Automatedon 12-0 -2023 Absolute Neut Normal 2.0-7.7 [facility] Comment on above: Result Comment: Canc elled via OM: Order cancelled - Patient discharged Performed By: #### L 100.0100, L500.2500 ####[facility] [address] [place], [address] HCT Normal 37-47 [facility] Comment on above: Result Comment: Canc elled via OM: Order cancelled - Patient discharged Performed By: #### L 100.0100, L500.2500 ####[facility] [address] [place], [address] HGB Normal 12.0-15.0 [facility] Comment on above: Result Comment: Canc elled via OM: Order cancelled - Patient discharged Performed By: #### L 100.0100, L500.2500 ####[facility] [address] [place], [address] MCH Normal 27.0-32.0 [facility] Comment on above: Result Comment: Canc elled via OM: Order cancelled - Patient discharged Performed By: #### L 100.0100, L500.2500 ####[facility] [address] [place], [address] MCHC Normal 32-36 [facility] Comment on above: Result Comment: Canc elled via OM: Order cancelled - Patient discharged Performed By: #### L 100.0100, L500.2500 ####[facility] [address] [place], [address] MCV Normal 81-99 [facility] Comment on above: Result Comment: Canc elled via OM: Order cancelled - Patient discharged Performed By: #### L 100.0100, L500.2500 ####[facility] [address] [place], [address] NEUT% Normal 47-70 [facility] Comment on above: Result Comment: Canc elled via OM: Order cancelled - Patient discharged Performed By: #### L 100.0100, L500.2500 ####[facility] [address] [place], [address] PLT Normal 150-450 [facility] Comment on above: Result Comment: Canc elled via OM: Order cancelled - Patient discharged Performed By: #### L 100.0100, L500.2500 ####[facility] [address] [place], [address] RBC Normal 4.2-5.4 [facility] Comment on above: Result Comment: Canc elled via OM: Order cancelled - Patient discharged Performed By: #### L 100.0100, L500.2500 ####[facility] [address] [place], [address] RDW CV Normal 11.6-14.6 [facility] Comment on above: Result Comment: Canc elled via OM: Order cancelled - Patient discharged Performed By: #### L 100.0100, L500.2500 ####[facility] [address] [place], [address] RDW SD Normal 35.1-43.9 [facility] Comment on above: Result Comment: Canc elled via OM: Order cancelled - Patient discharged Performed By: #### L 100.0100, L500.2500 ####[facility] [address] [place], [address] WBC Normal 4.4-11.0 [facility] Comment on above: Result Comment: Canc elled via OM: Order cancelled - Patient discharged Performed By: #### L 100.0100, L500.2500 ####[facility] [address] [place], [address] Basic Metabolic Profile (BMP )on 04-06-2024 BUN Normal 7-18 [facility] Comment on above: Result Comment: Canc elled via OM: Order cancelled - Patient discharged Performed By: #### L 100.0100, L500.2500 ####[facility] [address] [place], [address] BUN/CRE Normal 10-20 [facility] Comment on above: Result Comment: Canc elled via OM: Order cancelled - Patient discharged Performed By: #### L 100.0100, L500.2500 ####[facility] [address] [place], [address] CA,Total Normal 8.5-10.1 [facility] Comment on above: Result Comment: Canc elled via OM: Order cancelled - Patient discharged Performed By: #### L 100.0100, L500.2500 ####[facility] [address] [place], [address] CL Normal 98-107 [facility] Comment on above: Result Comment: Canc elled via OM: Order cancelled - Patient discharged Performed By: #### L 100.0100, L500.2500 ####[facility] [address] [place], [address] CO2 Normal 21.0-32.0 [facility] Comment on above: Result Comment: Canc elled via OM: Order cancelled - Patient discharged Performed By: #### L 100.0100, L500.2500 ####[facility] [address] [place], [address] CREAT,SERUM Normal 0.55-1.02 [facility] Comment on above: Result Comment: Canc elled via OM: Order cancelled - Patient discharged Performed By: #### L 100.0100, L500.2500 ####[facility] [address] [place], [address] EST GFR Normal >60 [facility] Comment on above: Result Comment: Canc elled via OM: Order cancelled - Patient discharged Performed By: #### L 100.0100, L500.2500 ####[facility] [address] [place], [address] EST GFR - AA Normal >60 [facility] Comment on above: Result Comment: Canc elled via OM: Order cancelled - Patient discharged Performed By: #### L 100.0100, L500.2500 ####[facility] [address] [place], [address] GAP Normal 5-15 [facility] Comment on above: Result Comment: Canc elled via OM: Order cancelled - Patient discharged Performed By: #### L 100.0100, L500.2500 ####[facility] [address] [place], [address] GLU Normal 74-106 [facility] Comment on above: Result Comment: Canc elled via OM: Order cancelled - Patient discharged Performed By: #### L 100.0100, L500.2500 ####[facility] [address] [place], [address] Potassium Normal 3.5-5.1 [facility] Comment on above: Result Comment: Canc elled via OM: Order cancelled - Patient discharged Performed By: #### L 100.0100, L500.2500 ####[facility] [address] [place], [address] Basic Metabolic Profile (BMP) Normal 136-145 [facility] Comment on above: Result Comment: Canc elled via OM: Order cancelled - Patient discharged Performed By: #### L 100.0100, L500.2500 ####[facility] [address] [place], [address] CBC W/Diff, Automatedon 12-0 -2023 Absolute Neut Normal 2.0-7.7 [facility] Comment on above: Result Comment: Canc elled via OM: Order cancelled - Patient discharged Performed By: #### L 100.0100, L500.2500 ####[facility] [address] [place], [address] HCT Normal 37-47 [facility] Comment on above: Result Comment: Canc elled via OM: Order cancelled - Patient discharged Performed By: #### L 100.0100, L500.2500 ####[facility] [address] [place], [address] HGB Normal 12.0-15.0 [facility] Comment on above: Result Comment: Canc elled via OM: Order cancelled - Patient discharged Performed By: #### L 100.0100, L500.2500 ####[facility] [address] [place], [address] MCH Normal 27.0-32.0 [facility] Comment on above: Result Comment: Canc elled via OM: Order cancelled - Patient discharged Performed By: #### L 100.0100, L500.2500 ####[facility] [address] [place], [address] MCHC Normal 32-36 [facility] Comment on above: Result Comment: Canc elled via OM: Order cancelled - Patient discharged Performed By: #### L 100.0100, L500.2500 ####[facility] [address] [place], [address] MCV Normal 81-99 [facility] Comment on above: Result Comment: Canc elled via OM: Order cancelled - Patient discharged Performed By: #### L 100.0100, L500.2500 ####[facility] [address] [place], [address] NEUT% Normal 47-70 [facility] Comment on above: Result Comment: Canc elled via OM: Order cancelled - Patient discharged Performed By: #### L 100.0100, L500.2500 ####[facility] [address] [place], [address] PLT Normal 150-450 [facility] Comment on above: Result Comment: Canc elled via OM: Order cancelled - Patient discharged Performed By: #### L 100.0100, L500.2500 ####[facility] [address] [place], [address] RBC Normal 4.2-5.4 [facility] Comment on above: Result Comment: Canc elled via OM: Order cancelled - Patient discharged Performed By: #### L 100.0100, L500.2500 ####[facility] [address] [place], [address] RDW CV Normal 11.6-14.6 [facility] Comment on above: Result Comment: Canc elled via OM: Order cancelled - Patient discharged Performed By: #### L 100.0100, L500.2500 ####[facility] [address] [place], [address] RDW SD Normal 35.1-43.9 [facility] Comment on above: Result Comment: Canc elled via OM: Order cancelled - Patient discharged Performed By: #### L 100.0100, L500.2500 ####[facility] [address] [place], [address] WBC Normal 4.4-11.0 [facility] Comment on above: Result Comment: Canc elled via OM: Order cancelled - Patient discharged Performed By: #### L 100.0100, L500.2500 ####[facility] [address] [place], [address] Ammoniaon 04-05-2024 Ammonia (P) [Moles/Vol] 13.0 umol/L Normal 11-32 [facility] Comment on above: Performed By: #### L 503.5510 ####[facility] [address] [place], [address] Basic Metabolic Profile (BMP )on 04-05-2024 BUN/CRE 74.1 RATIO High 10-20 [facility] Comment on above: Performed By: #### L 501.5200, L100.0100, L501.2300, L500.2500 ####[facility] [address] [place], [address] CA,Total 8.5 mg/dL Normal 8.5-10.1 [facility] Comment on above: Performed By: #### L 501.5200, L100.0100, L501.2300, L500.2500 ####[facility] [address] [place], [address] Chloride [Moles/Vol] 105 mmol/L Normal 98-107 [facility] Comment on above: Performed By: #### L 501.5200, L100.0100, L501.2300, L500.2500 ####[facility] [address] [place], [address] CO2 [Moles/Vol] 30.0 mmol/L Normal 21.0-32.0 [facility] Comment on above: Performed By: #### L 501.5200, L100.0100, L501.2300, L500.2500 ####[facility] [address] [place], [address] Creatinine [Mass/Vol] 0.30 mg/dL Low 0.55-1.02 [facility] Comment on above: Result Comment: The validity of the calculated GFR GFRAA in patients over70 years has not been determined. Clinical correlation isessential. Performed By: #### L 501.5200, L100.0100, L501.2300, L500.2500 ####[facility] [address] [place], [address] ECRCL 47.36 ml/min Normal [facility] Comment on above: Performed By: #### L 501.5200, L100.0100, L501.2300, L500.2500 ####[facility] [address] [place], [address] EST GFR - AA 284 mL/min Normal >60 [facility] Comment on above: Result Comment: Afri can Burmese GFR Calc Performed By: #### L 501.5200, L100.0100, L501.2300, L500.2500 ####[facility] [address] [place], [address] GAP 3 Low 5-15 [facility] Comment on above: Performed By: #### L 501.5200, L100.0100, L501.2300, L500.2500 ####[facility] [address] [place], [address] GFR/1.73 sq M.predicted among non-blacks MDRD (S/P/Bld) [Vol rate/Area] 235 mL/min/{1.73_m2} Normal >60 [facility] Comment on above: Result Comment: Non- GFR Calc Performed By: #### L 501.5200, L100.0100, L501.2300, L500.2500 ####[facility] [address] [place], [address] Glucose [Mass/Vol] 114 mg/dL High 74-106 [facility] Comment on above: Result Comment: Fast ing Glucose result from 100 to 125 mg/dLsuggests IMPAIRED HOMEOSTASIS per A.D.A. criteria. Performed By: #### L 501.5200, L100.0100, L501.2300, L500.2500 ####[facility] [address] [place], [address] Potassium [Moles/Vol] 4.8 mmol/L Normal 3.5-5.1 [facility] Comment on above: Performed By: #### L 501.5200, L100.0100, L501.2300, L500.2500 ####[facility] [address] [place], [address] Sodium [Moles/Vol] 137 mmol/L Normal 136-145 [facility] Comment on above: Performed By: #### L 501.5200, L100.0100, L501.2300, L500.2500 ####[facility] [address] [place], [address] Urea nitrogen [Mass/Vol] 22 mg/dL High 7-18 [facility] Comment on above: Performed By: #### L 501.5200, L100.0100, L501.2300, L500.2500 ####[facility] [address] [place], [address] CBC W/Diff, Automatedon 12-0 Anisocytosis Ql (Bld) 1+ Normal [facility] Comment on above: Performed By: #### L 501.5200, L100.0100, L501.2300, L500.2500 ####[facility] [address] [place], [address] Culture, Blood (WB)on 2023 CUB Blood cultures x2, from two different sites No growth in 5 days. Normal [facility] Comment on above: Performed By: #### L 500.4050, M200.1000, L300.4310, L501.4020, L503.6005, L100.0100, L300.3900 ####[facility] [address] [place], [address] Liver Profileon 04-05-2024 Albumin [Mass/Vol] 1.5 g/dL Low 3.2-5.0 [facility] Comment on above: Performed By: #### L 500.3400 ####[facility] [address] [place], [address] ALK P 145 U/L High 45-117 [facility] Comment on above: Performed By: #### L 500.3400 ####[facility] [address] [place], [address] ALT [Catalytic activity/Vol] 25 U/L Normal 13-56 [facility] Comment on above: Performed By: #### L 500.3400 ####[facility] [address] [place], [address] AST [Catalytic activity/Vol] 27 U/L Normal 15-37 [facility] Comment on above: Performed By: #### L 500.3400 ####[facility] [address] [place], [address] Bilirubin [Mass/Vol] 0.30 mg/dL Normal 0.20-1.00 [facility] Comment on above: Result Comment: For patients on eltrombopag therapy, use of Dimension [place] TBIL is not recommended. Performed By: #### L 500.3400 ####[facility] [address] [place], [address] Bilirubin.direct [Mass/Vol] 0.18 mg/dL Normal 0.00-0.30 [facility] Comment on above: Performed By: #### L 500.3400 ####[facility] [address] [place], [address] Globulin (S) [Mass/Vol] 2.9 g/dL Normal 2.2-4.2 [facility] Comment on above: Performed By: #### L 500.3400 ####[facility] [address] [place], [address] T PROT 4.4 g/dL Low 6.4-8.2 [facility] Comment on above: Performed By: #### L 500.3400 ####[facility] [address] [place], [address] Magnesiumon 04-05-2024 Magnesium [Mass/Vol] 2.0 mg/dL Normal 1.6-2.6 [facility] Comment on above: Performed By: #### L 501.5200, L100.0100, L501.2300, L500.2500 ####[facility] [address] [place], [address] Phosphoruson 04-05-2024 Phosphate [Mass/Vol] 4.2 mg/dL Normal 2.5-4.9 [facility] Comment on above: Performed By: #### L 501.5200, L100.0100, L501.2300, L500.2500 ####[facility] [address] [place], [address] Stool Occult Blood iFOBon STOB Normal [facility] Comment on above: Performed By: #### M 100.7900 ####[facility] [address] [place], [address] BRCon 04-04-2024 RC Normal [facility] Comment on above: Result Comment: [id number] AN RC READY Performed By: #### B RC ####[facility] [address] [place], [address] Basic Metabolic Profile (BMP )on 04-04-2024 BUN/CRE 68.2 RATIO High 10-20 [facility] Comment on above: Performed By: #### L 100.0100, L500.2500 ####[facility] [address] [place], [address] CA,Total 9.0 mg/dL Normal 8.5-10.1 [facility] Comment on above: Performed By: #### L 100.0100, L500.2500 ####[facility] [address] [place], [address] Chloride [Moles/Vol] 106 mmol/L Normal 98-107 [facility] Comment on above: Performed By: #### L 100.0100, L500.2500 ####[facility] [address] [place], [address] CO2 [Moles/Vol] 28.0 mmol/L Normal 21.0-32.0 [facility] Comment on above: Performed By: #### L 100.0100, L500.2500 ####[facility] [address] [place], [address] Creatinine [Mass/Vol] 0.31 mg/dL Low 0.55-1.02 [facility] Comment on above: Result Comment: The validity of the calculated GFR GFRAA in patients over70 years has not been determined. Clinical correlation isessential. Performed By: #### L 100.0100, L500.2500 ####[facility] [address] [place], [address] ECRCL 47.36 ml/min Normal [facility] Comment on above: Performed By: #### L 100.0100, L500.2500 ####[facility] [address] [place], [address] EST GFR - AA 272 mL/min Normal >60 [facility] Comment on above: Result Comment: Afri can Burmese GFR Calc Performed By: #### L 100.0100, L500.2500 ####[facility] [address] [place], [address] GAP 3 Low 5-15 [facility] Comment on above: Performed By: #### L 100.0100, L500.2500 ####[facility] [address] [place], [address] GFR/1.73 sq M.predicted among non-blacks MDRD (S/P/Bld) [Vol rate/Area] 225 mL/min/{1.73_m2} Normal >60 [facility] Comment on above: Result Comment: Non- GFR Calc Performed By: #### L 100.0100, L500.2500 ####[facility] [address] [place], [address] Glucose [Mass/Vol] 111 mg/dL High 74-106 [facility] Comment on above: Result Comment: Fast ing Glucose result from 100 to 125 mg/dLsuggests IMPAIRED HOMEOSTASIS per A.D.A. criteria. Performed By: #### L 100.0100, L500.2500 ####[facility] [address] [place], [address] Potassium [Moles/Vol] 4.9 mmol/L Normal 3.5-5.1 [facility] Comment on above: Performed By: #### L 100.0100, L500.2500 ####[facility] [address] [place], [address] Sodium [Moles/Vol] 137 mmol/L Normal 136-145 [facility] Comment on above: Performed By: #### L 100.0100, L500.2500 ####[facility] [address] [place], [address] Urea nitrogen [Mass/Vol] 21 mg/dL High 7-18 [facility] Comment on above: Performed By: #### L 100.0100, L500.2500 ####[facility] [address] [place], [address] CBC W/Diff, Automatedon 12-0 2-2024 Absolute Lymph 0.68 X10 3/uL Low 0.83-4.51 [facility] Comment on above: Performed By: #### L 100.0100, L500.2500 ####[facility] [address] [place], [address] Absolute Neut 10.1 X10 3/uL High 2.0-7.7 [facility] Comment on above: Performed By: #### L 100.0100, L500.2500 ####[facility] [address] [place], [address] Basophils/100 WBC (Bld) 0.4 % Normal 0-1 [facility] Comment on above: Performed By: #### L 100.0100, L500.2500 ####[facility] [address] [place], [address] Eosinophils/100 WBC (Bld) 1.3 % Normal 0-5 [facility] Comment on above: Performed By: #### L 100.0100, L500.2500 ####[facility] [address] [place], [address] Erythrocyte distribution width (RBC) [Ratio] 13.8 % Normal 11.6-14.6 [facility] Comment on above: Performed By: #### L 100.0100, L500.2500 ####[facility] [address] [place], [address] Hematocrit (Bld) [Volume fraction] 24.0 % Low 37-47 [facility] Comment on above: Performed By: #### L 100.0100, L500.2500 ####[facility] [address] [place], [address] Hemoglobin (Bld) [Mass/Vol] 8.1 g/dL Low 12.0-15.0 [facility] Comment on above: Performed By: #### L 100.0100, L500.2500 ####[facility] [address] [place], [address] IG% 1.500 High 0.0-0.9 [facility] Comment on above: Result Comment: IG% - Immature Granulocytes (promyelocytes, myelocytes andmetamyelocytes) > 1% indicates that a LEFT SHIFT is Present. Performed By: #### L 100.0100, L500.2500 ####[facility] [address] [place], [address] Lymphocytes/100 WBC (Bld) 5.8 % Low 19-41 [facility] Comment on above: Performed By: #### L 100.0100, L500.2500 ####[facility] [address] [place], [address] MCH (RBC) [Entitic mass] 31.2 pg Normal 27.0-32.0 [facility] Comment on above: Performed By: #### L 100.0100, L500.2500 ####[facility] [address] [place], [address] MCHC (RBC) [Mass/Vol] 33.8 g/dL Normal 32-36 [facility] Comment on above: Performed By: #### L 100.0100, L500.2500 ####[facility] [address] [place], [address] MCV (RBC) [Entitic vol] 92.3 fL Normal 81-99 [facility] Comment on above: Performed By: #### L 100.0100, L500.2500 ####[facility] [address] [place], [address] Monocytes/100 WBC (Bld) 4.6 % Normal 0-10 [facility] Comment on above: Performed By: #### L 100.0100, L500.2500 ####[facility] [address] [place], [address] Neutrophils/100 WBC (Bld) 86.4 % High 47-70 [facility] Comment on above: Performed By: #### L 100.0100, L500.2500 ####[facility] [address] [place], [address] Nucleated RBC (Bld) [#/Vol] 0 10*3/uL Normal 0-5 [facility] Comment on above: Performed By: #### L 100.0100, L500.2500 ####[facility] [address] [place], [address] Platelet mean volume (Bld) [Entitic vol] 10.9 fL Normal 6.2-12.0 [facility] Comment on above: Performed By: #### L 100.0100, L500.2500 ####[facility] [address] [place], [address] Platelets (Bld) [#/Vol] 126 10*3/uL Low 150-450 [facility] Comment on above: Performed By: #### L 100.0100, L500.2500 ####[facility] [address] [place], [address] RBC (Bld) [#/Vol] 2.60 10*6/uL Low 4.2-5.4 [facility] Comment on above: Performed By: #### L 100.0100, L500.2500 ####[facility] [address] [place], [address] RDW SD 46.4 fl High 35.1-43.9 [facility] Comment on above: Performed By: #### L 100.0100, L500.2500 ####[facility] [address] [place], [address] WBC (Bld) [#/Vol] 11.6 10*3/uL High 4.4-11.0 [facility] Comment on above: Performed By: #### L 100.0100, L500.2500 ####[facility] [address] [place], [address] Iron+Iron Binding Capacityon 04-04-2024 Iron [Mass/Vol] 18 ug/dL Low 50-170 [facility] Comment on above: Performed By: #### L 503.0105, L503.6030 ####[facility] [address] [place], [address] IRON SATURATION 14.4 Low 15.0-55.0 [facility] Comment on above: Performed By: #### L 503.0105, L503.6030 ####[facility] [address] [place], [address] TIBC 125 ug/dL Low 250-450 [facility] Comment on above: Performed By: #### L 503.0105, L503.6030 ####[facility] [address] [place], [address] Type AND Screenon 04-04-2024 ABO and Rh group Nom (Bld) Blood group A Rh(D) negative Normal [facility] Comment on above: Order Comment: A Performed By: #### B TS ####[facility] [address] [place], [address] Ab SCREEN GEL Negative Normal [facility] Comment on above: Order Comment: A Performed By: #### B TS ####[facility] [address] [place], [address] Vitamin B12on 04-04-2024 Cobalamin (Vitamin B12) [Mass/Vol] 853 pg/mL Normal 211-911 [facility] Comment on above: Performed By: #### L 503.0105, L503.6030 ####[facility] [address] [place], [address] 12 Lead EKGon 04-03-2024 12 Lead EKG Normal [facility] Basic Metabolic Profile (BMP )on 04-03-2024 BUN/CRE 61.7 RATIO High 10-20 [facility] Comment on above: Performed By: #### L 100.0100, L500.2500 ####[facility] [address] [place], [address] CA,Total 8.1 mg/dL Low 8.5-10.1 [facility] Comment on above: Performed By: #### L 100.0100, L500.2500 ####[facility] [address] [place], [address] Chloride [Moles/Vol] 106 mmol/L Normal 98-107 [facility] Comment on above: Performed By: #### L 100.0100, L500.2500 ####[facility] [address] [place], [address] CO2 [Moles/Vol] 27.0 mmol/L Normal 21.0-32.0 [facility] Comment on above: Performed By: #### L 100.0100, L500.2500 ####[facility] [address] [place], [address] Creatinine [Mass/Vol] 0.31 mg/dL Low 0.55-1.02 [facility] Comment on above: Result Comment: The validity of the calculated GFR GFRAA in patients over70 years has not been determined. Clinical correlation isessential. Performed By: #### L 100.0100, L500.2500 ####[facility] [address] [place], [address] ECRCL 47.36 ml/min Normal [facility] Comment on above: Performed By: #### L 100.0100, L500.2500 ####[facility] [address] [place], [address] EST GFR - AA 272 mL/min Normal >60 [facility] Comment on above: Result Comment: Afri can Burmese GFR Calc Performed By: #### L 100.0100, L500.2500 ####[facility] [address] [place], [address] GAP 4 Low 5-15 [facility] Comment on above: Performed By: #### L 100.0100, L500.2500 ####[facility] [address] [place], [address] GFR/1.73 sq M.predicted among non-blacks MDRD (S/P/Bld) [Vol rate/Area] 225 mL/min/{1.73_m2} Normal >60 [facility] Comment on above: Result Comment: Non- GFR Calc Performed By: #### L 100.0100, L500.2500 ####[facility] [address] [place], [address] Glucose [Mass/Vol] 82 mg/dL Normal 74-106 [facility] Comment on above: Performed By: #### L 100.0100, L500.2500 ####[facility] [address] [place], [address] Potassium [Moles/Vol] 5.3 mmol/L High 3.5-5.1 [facility] Comment on above: Performed By: #### L 100.0100, L500.2500 ####[facility] [address] [place], [address] Sodium [Moles/Vol] 138 mmol/L Normal 136-145 [facility] Comment on above: Performed By: #### L 100.0100, L500.2500 ####[facility] [address] [place], [address] Urea nitrogen [Mass/Vol] 19 mg/dL High 7-18 [facility] Comment on above: Performed By: #### L 100.0100, L500.2500 ####[facility] [address] [place], [address] CBC W/Diff, Automatedon 12-0 SMEAR COMMENT SCANNED Normal [facility] Comment on above: Performed By: #### L 100.0100, L500.2500 ####[facility] [address] [place], [address] Abdomen Single View (Portabl e)on 04-02-2024 Abdomen Single View (Portable) Normal [facility] Basic Metabolic Profile (BMP )on 04-02-2024 BUN/CRE 50.4 RATIO High 10-20 [facility] Comment on above: Performed By: #### L 100.0100, L500.2500 ####[facility] [address] [place], [address] CA,Total 7.9 mg/dL Low 8.5-10.1 [facility] Comment on above: Performed By: #### L 100.0100, L500.2500 ####[facility] [address] [place], [address] Chloride [Moles/Vol] 106 mmol/L Normal 98-107 [facility] Comment on above: Performed By: #### L 100.0100, L500.2500 ####[facility] [address] [place], [address] CO2 [Moles/Vol] 25.0 mmol/L Normal 21.0-32.0 [facility] Comment on above: Performed By: #### L 100.0100, L500.2500 ####[facility] [address] [place], [address] Creatinine [Mass/Vol] 0.42 mg/dL Low 0.55-1.02 [facility] Comment on above: Result Comment: The validity of the calculated GFR GFRAA in patients over70 years has not been determined. Clinical correlation isessential. Performed By: #### L 100.0100, L500.2500 ####[facility] [address] [place], [address] ECRCL 47.36 ml/min Normal [facility] Comment on above: Performed By: #### L 100.0100, L500.2500 ####[facility] [address] [place], [address] EST GFR - AA 192 mL/min Normal >60 [facility] Comment on above: Result Comment: Afri can Burmese GFR Calc Performed By: #### L 100.0100, L500.2500 ####[facility] [address] [place], [address] GAP 5 Normal 5-15 [facility] Comment on above: Performed By: #### L 100.0100, L500.2500 ####[facility] [address] [place], [address] GFR/1.73 sq M.predicted among non-blacks MDRD (S/P/Bld) [Vol rate/Area] 159 mL/min/{1.73_m2} Normal >60 [facility] Comment on above: Result Comment: Non- GFR Calc Performed By: #### L 100.0100, L500.2500 ####[facility] [address] [place], [address] Glucose [Mass/Vol] 97 mg/dL Normal 74-106 [facility] Comment on above: Performed By: #### L 100.0100, L500.2500 ####[facility] [address] [place], [address] Potassium [Moles/Vol] 2.7 mmol/L Invalid Interpretation Code 3.5-5.1 [facility] Comment on above: Result Comment: Crit ical Result(s) Called at: 07:29:48 04/02/2024 by:Denisse Morrsion. Results read back by same. Performed By: #### L 100.0100, L500.2500 ####[facility] [address] [place], [address] Sodium [Moles/Vol] 136 mmol/L Normal 136-145 [facility] Comment on above: Performed By: #### L 100.0100, L500.2500 ####[facility] [address] [place], [address] Urea nitrogen [Mass/Vol] 21 mg/dL High 7-18 [facility] Comment on above: Performed By: #### L 100.0100, L500.2500 ####[facility] [address] [place], [address] Bedside Glucoseon 04-02-2024 FINGERSTICK GLU 101 mg/dL Normal 74-106 [facility] Comment on above: Result Comment: LIAM HERNANDEZ OF PATIENT CARE PER NURSING PROTOCOL Performed By: #### L 501.080 ####[facility] [address] [place], [address] CBC W/Diff, Automatedon 11-3 SMEAR COMMENT SCANNED Normal [facility] Comment on above: Performed By: #### L 100.0100, L500.2500 ####[facility] [address] [place], [address] Urine Cultureon 04-02-2024 URC Normal [facility] Comment on above: Performed By: #### L 400.0001, M100.678, M100.2200 ####[facility] [address] [place], [address] Basic Metabolic Profile (BMP )on 04-01-2024 BUN/CRE 47.4 RATIO High 10-20 [facility] Comment on above: Performed By: #### L 100.0100, L501.5200, L501.2300, L501.9520, L300.3900, L500.3400, L500.4050, L500.2500 ####[facility] [address] [place], [address] CA,Total 7.6 mg/dL Low 8.5-10.1 [facility] Comment on above: Performed By: #### L 100.0100, L501.5200, L501.2300, L501.9520, L300.3900, L500.3400, L500.4050, L500.2500 ####[facility] [address] [place], [address] Chloride [Moles/Vol] 107 mmol/L Normal 98-107 [facility] Comment on above: Performed By: #### L 100.0100, L501.5200, L501.2300, L501.9520, L300.3900, L500.3400, L500.4050, L500.2500 ####[facility] [address] [place], [address] CO2 [Moles/Vol] 21.0 mmol/L Normal 21.0-32.0 [facility] Comment on above: Performed By: #### L 100.0100, L501.5200, L501.2300, L501.9520, L300.3900, L500.3400, L500.4050, L500.2500 ####[facility] [address] [place], [address] Creatinine [Mass/Vol] 0.68 mg/dL Normal 0.55-1.02 [facility] Comment on above: Result Comment: The validity of the calculated GFR GFRAA in patients over70 years has not been determined. Clinical correlation isessential. Performed By: #### L 100.0100, L501.5200, L501.2300, L501.9520, L300.3900, L500.3400, L500.4050, L500.2500 ####[facility] [address] [place], [address] ECRCL 47.36 ml/min Normal [facility] Comment on above: Performed By: #### L 100.0100, L501.5200, L501.2300, L501.9520, L300.3900, L500.3400, L500.4050, L500.2500 ####[facility] [address] [place], [address] EST GFR - AA 110 mL/min Normal >60 [facility] Comment on above: Result Comment: Afri can Burmese GFR Calc Performed By: #### L 100.0100, L501.5200, L501.2300, L501.9520, L300.3900, L500.3400, L500.4050, L500.2500 ####[facility] [address] [place], [address] GAP 9 Normal 5-15 [facility] Comment on above: Performed By: #### L 100.0100, L501.5200, L501.2300, L501.9520, L300.3900, L500.3400, L500.4050, L500.2500 ####[facility] [address] [place], [place], [address] GFR/1.73 sq M.predicted among non-blacks MDRD (S/P/Bld) [Vol rate/Area] 91 mL/min/{1.73_m2} Normal >60 [facility] Comment on above: Result Comment: Non- GFR Calc Performed By: #### L 100.0100, L501.5200, L501.2300, L501.9520, L300.3900, L500.3400, L500.4050, L500.2500 ####[facility] [address] [place], [address] Glucose [Mass/Vol] 135 mg/dL High 74-106 [facility] Comment on above: Result Comment: Fast ing Glucose result greater than or equal to 126 mg/dLsuggests DIABETES MELLITUS per A.D.A. criteria. Performed By: #### L 100.0100, L501.5200, L501.2300, L501.9520, L300.3900, L500.3400, L500.4050, L500.2500 ####[facility] [address] [place], [place], [phone] Potassium [Moles/Vol] 2.8 mmol/L Low 3.5-5.1 [facility] Comment on above: Performed By: #### L 100.0100, L501.5200, L501.2300, L501.9520, L300.3900, L500.3400, L500.4050, L500.2500 ####[facility] [address] [place], [place], [phone] Sodium [Moles/Vol] 137 mmol/L Normal 136-145 [facility] Comment on above: Performed By: #### L 100.0100, L501.5200, L501.2300, L501.9520, L300.3900, L500.3400, L500.4050, L500.2500 ####[facility] [address] [place], [place], [phone] Urea nitrogen [Mass/Vol] 32 mg/dL High 7-18 [facility] Comment on above: Performed By: #### L 100.0100, L501.5200, L501.2300, L501.9520, L300.3900, L500.3400, L500.4050, L500.2500 ####[facility] [address] [place], [place], [phone]([phone] CBC W/Diff, Automatedon 11-2 SMEAR COMMENT COMMENT Normal [facility] Comment on above: Result Comment: LYMP HOPENIA. Performed By: #### L 100.0100, L501.5200, L501.2300, L501.9520, L300.3900, L500.3400, L500.4050, L500.2500 ####[facility] [address] [place], [address] CTA Chest W/WO Contraston CTA Chest W/WO Contrast Normal [facility] Comprehensive Metabolic Prof ilon 04-01-2024 Albumin/Globulin [Mass ratio] 0.6 {ratio} Low 0.9-2.4 [facility] Comment on above: Performed By: #### L 100.0100, L501.5200, L501.2300, L501.9520, L300.3900, L500.3400, L500.4050, L500.2500 ####[facility] [address] [place], [place], [id number] Consultation - Cardiologyon 04-01-2024 Consultation - Cardiology Normal [facility] D-Dimer Quantitative (DVT/PE )on 04-01-2024 D-DIMER QUANT 1.81 FEU/ug/m Invalid Interpretation Code 0.27-0.49 [facility] Comment on above: Order Comment: CRITI NATTY VALUE CALLED TO SUMA MC04/01/24 [place].RESULTS READ BACK BY SAME. Result Comment: D-Di jan ELEVATED (>0.49): Additional studies and clinicalassessments are indicated to conclude diagnosis of:Deep Vein Thrombosis (DVT) or Pulmonary Embolism (PE) Performed By: #### L 300.8000 ####[facility] [address] [place], [place], [id number] ENTERIC PATHOGEN PANEL STOOL on 04-01-2024 EP PANEL Normal [facility] Comment on above: Performed By: #### M 100.637 ####[facility] [address] [place], [address] Echo Completeon 04-01-2024 Echo Complete Normal [facility] Liver Profileon 04-01-2024 Albumin [Mass/Vol] 2.1 g/dL Low 3.2-5.0 [facility] Comment on above: Performed By: #### L 100.0100, L501.5200, L501.2300, L501.9520, L300.3900, L500.3400, L500.4050, L500.2500 ####[facility] [address] [place], [address] ALK P 96 U/L Normal 45-117 [facility] Comment on above: Performed By: #### L 100.0100, L501.5200, L501.2300, L501.9520, L300.3900, L500.3400, L500.4050, L500.2500 ####[facility] [address] [place], [address] ALT [Catalytic activity/Vol] 10 U/L Low 13-56 [facility] Comment on above: Performed By: #### L 100.0100, L501.5200, L501.2300, L501.9520, L300.3900, L500.3400, L500.4050, L500.2500 ####[facility] [address] [place], [address] AST [Catalytic activity/Vol] 16 U/L Normal 15-37 [facility] Comment on above: Performed By: #### L 100.0100, L501.5200, L501.2300, L501.9520, L300.3900, L500.3400, L500.4050, L500.2500 ####[facility] [address] [place], [address] Bilirubin [Mass/Vol] 0.60 mg/dL Normal 0.20-1.00 [facility] Comment on above: Result Comment: For patients on eltrombopag therapy, use of Dimension [place] TBIL is not recommended. Performed By: #### L 100.0100, L501.5200, L501.2300, L501.9520, L300.3900, L500.3400, L500.4050, L500.2500 ####[facility] [address] [place], [address] Bilirubin.direct [Mass/Vol] 0.24 mg/dL Normal 0.00-0.30 [facility] Comment on above: Performed By: #### L 100.0100, L501.5200, L501.2300, L501.9520, L300.3900, L500.3400, L500.4050, L500.2500 ####[facility] [address] [place], [address] Globulin (S) [Mass/Vol] 3.3 g/dL Normal 2.2-4.2 [facility] Comment on above: Performed By: #### L 100.0100, L501.5200, L501.2300, L501.9520, L300.3900, L500.3400, L500.4050, L500.2500 ####[facility] [address] [place], [place], [phone] T PROT 5.4 g/dL Low 6.4-8.2 [facility] Comment on above: Performed By: #### L 100.0100, L501.5200, L501.2300, L501.9520, L300.3900, L500.3400, L500.4050, L500.2500 ####[facility] [address] [place], [address] Magnesiumon 04-01-2024 Magnesium [Mass/Vol] 2.1 mg/dL Normal 1.6-2.6 [facility] Comment on above: Performed By: #### L 100.0100, L501.5200, L501.2300, L501.9520, L300.3900, L500.3400, L500.4050, L500.2500 ####[facility] [address] [place], [address] Phosphoruson 04-01-2024 Phosphate [Mass/Vol] 2.9 mg/dL Normal 2.5-4.9 [facility] Comment on above: Performed By: #### L 100.0100, L501.5200, L501.2300, L501.9520, L300.3900, L500.3400, L500.4050, L500.2500 ####[facility] [address] [place], [address] Prothrombin Time w/INRon INR Coag (PPP) [Relative time] 1.3 {INR} Normal [facility] Comment on above: Performed By: #### L 100.0100, L501.5200, L501.2300, L501.9520, L300.3900, L500.3400, L500.4050, L500.2500 ####[facility] [address] [place], [address] PT Coag (PPP) [Time] 16.5 s High 11.7-14.9 [facility] Comment on above: Performed By: #### L 100.0100, L501.5200, L501.2300, L501.9520, L300.3900, L500.3400, L500.4050, L500.2500 ####[facility] [address] [place], [address] Thyroid Stim Hormone (TSH)on 04-01-2024 TSH 0.588 uIU/mL Normal 0.358-3.740 [facility] Comment on above: Performed By: #### L 100.0100, L501.5200, L501.2300, L501.9520, L300.3900, L500.3400, L500.4050, L500.2500 ####[facility] [address] [place], [address] Abdomen/Pelvis W IV Cont ONL Yon 03-31-2024 Abdomen/Pelvis W IV Cont ONLY Normal [facility] BNP,B-Type NATRIURETIC PEPTI Leah 03-31-2024 Natriuretic peptide B (Bld) [Mass/Vol] 1148.9 pg/mL High 0-100 [facility] Comment on above: Performed By: #### L 503.6697 ####[facility] [address] [place], [address] CBC W/Diff, Automatedon 11-2 SMEAR COMMENT Normal [facility] Comment on above: Result Comment: BAND S NOTED Performed By: #### L 500.4050, M200.1000, L300.4310, L501.4020, L503.6005, L100.0100, L300.3900 ####[facility] [address] [place], [address] Chest 1 View (Portable)on Chest 1 View (Portable) Normal [facility] Comprehensive Metabolic Prof ilon 03-31-2024 Albumin [Mass/Vol] 2.6 g/dL Low 3.2-5.0 [facility] Comment on above: Order Comment: 'TROP ' Serial specimen #1, #2 or #3: 1 Performed By: #### L 500.4050, M200.1000, L300.4310, L501.4020, L503.6005, L100.0100, L300.3900 ####[facility] [address] [place], [address] Albumin/Globulin [Mass ratio] 0.8 {ratio} Low 0.9-2.4 [facility] Comment on above: Order Comment: 'TROP ' Serial specimen #1, #2 or #3: 1 Performed By: #### L 500.4050, M200.1000, L300.4310, L501.4020, L503.6005, L100.0100, L300.3900 ####[facility] [address] [place], [address] ALK P 102 U/L Normal 45-117 [facility] Comment on above: Order Comment: 'TROP ' Serial specimen #1, #2 or #3: 1 Performed By: #### L 500.4050, M200.1000, L300.4310, L501.4020, L503.6005, L100.0100, L300.3900 ####[facility] [address] [place], [address] ALT [Catalytic activity/Vol] 11 U/L Low 13-56 [facility] Comment on above: Order Comment: 'TROP ' Serial specimen #1, #2 or #3: 1 Performed By: #### L 500.4050, M200.1000, L300.4310, L501.4020, L503.6005, L100.0100, L300.3900 ####[facility] [address] [place], [address] AST [Catalytic activity/Vol] 18 U/L Normal 15-37 [facility] Comment on above: Order Comment: 'TROP ' Serial specimen #1, #2 or #3: 1 Performed By: #### L 500.4050, M200.1000, L300.4310, L501.4020, L503.6005, L100.0100, L300.3900 ####[facility] [address] [place], [address] Bilirubin [Mass/Vol] 0.70 mg/dL Normal 0.20-1.00 [facility] Comment on above: Order Comment: 'TROP ' Serial specimen #1, #2 or #3: 1 Result Comment: For patients on eltrombopag therapy, use of Dimension [place] TBIL is not recommended. Performed By: #### L 500.4050, M200.1000, L300.4310, L501.4020, L503.6005, L100.0100, L300.3900 ####[facility] [address] [place], [address] BUN/CRE 42.5 RATIO High 10-20 [facility] Comment on above: Order Comment: 'TROP ' Serial specimen #1, #2 or #3: 1 Performed By: #### L 500.4050, M200.1000, L300.4310, L501.4020, L503.6005, L100.0100, L300.3900 ####[facility] [address] [place], [address] CA,Total 8.2 mg/dL Low 8.5-10.1 [facility] Comment on above: Order Comment: 'TROP ' Serial specimen #1, #2 or #3: 1 Performed By: #### L 500.4050, M200.1000, L300.4310, L501.4020, L503.6005, L100.0100, L300.3900 ####[facility] [address] [place], [address] Chloride [Moles/Vol] 97 mmol/L Low 98-107 [facility] Comment on above: Order Comment: 'TROP ' Serial specimen #1, #2 or #3: 1 Performed By: #### L 500.4050, M200.1000, L300.4310, L501.4020, L503.6005, L100.0100, L300.3900 ####[facility] [address] [place], [address] CO2 [Moles/Vol] 24.0 mmol/L Normal 21.0-32.0 [facility] Comment on above: Order Comment: 'TROP ' Serial specimen #1, #2 or #3: 1 Performed By: #### L 500.4050, M200.1000, L300.4310, L501.4020, L503.6005, L100.0100, L300.3900 ####[facility] [address] [place], [address] Creatinine [Mass/Vol] 0.80 mg/dL Normal 0.55-1.02 [facility] Comment on above: Order Comment: 'TROP ' Serial specimen #1, #2 or #3: 1 Result Comment: The validity of the calculated GFR GFRAA in patients over70 years has not been determined. Clinical correlation isessential. Performed By: #### L 500.4050, M200.1000, L300.4310, L501.4020, L503.6005, L100.0100, L300.3900 ####[facility] [address] [place], [address] ECRCL 43.24 ml/min Normal [facility] Comment on above: Order Comment: 'TROP ' Serial specimen #1, #2 or #3: 1 Performed By: #### L 500.4050, M200.1000, L300.4310, L501.4020, L503.6005, L100.0100, L300.3900 ####[facility] [address] [place], [address] EST GFR - AA 90 mL/min Normal >60 [facility] Comment on above: Order Comment: 'TROP ' Serial specimen #1, #2 or #3: 1 Result Comment: Afri can Burmese GFR Calc Performed By: #### L 500.4050, M200.1000, L300.4310, L501.4020, L503.6005, L100.0100, L300.3900 ####[facility] [address] [place], [address] GAP 10 Normal 5-15 [facility] Comment on above: Order Comment: 'TROP ' Serial specimen #1, #2 or #3: 1 Performed By: #### L 500.4050, M200.1000, L300.4310, L501.4020, L503.6005, L100.0100, L300.3900 ####[facility] [address] [place], [address] GFR/1.73 sq M.predicted among non-blacks MDRD (S/P/Bld) [Vol rate/Area] 75 mL/min/{1.73_m2} Normal >60 [facility] Comment on above: Order Comment: 'TROP ' Serial specimen #1, #2 or #3: 1 Result Comment: Non- GFR Calc Performed By: #### L 500.4050, M200.1000, L300.4310, L501.4020, L503.6005, L100.0100, L300.3900 ####[facility] [address] [place], [address] Globulin (S) [Mass/Vol] 3.3 g/dL Normal 2.2-4.2 [facility] Comment on above: Order Comment: 'TROP ' Serial specimen #1, #2 or #3: 1 Performed By: #### L 500.4050, M200.1000, L300.4310, L501.4020, L503.6005, L100.0100, L300.3900 ####[facility] [address] [place], [address] Glucose [Mass/Vol] 97 mg/dL Normal 74-106 [facility] Comment on above: Order Comment: 'TROP ' Serial specimen #1, #2 or #3: 1 Performed By: #### L 500.4050, M200.1000, L300.4310, L501.4020, L503.6005, L100.0100, L300.3900 ####[facility] [address] [place], [address] Potassium [Moles/Vol] 3.0 mmol/L Low 3.5-5.1 [facility] Comment on above: Order Comment: 'TROP ' Serial specimen #1, #2 or #3: 1 Performed By: #### L 500.4050, M200.1000, L300.4310, L501.4020, L503.6005, L100.0100, L300.3900 ####[facility] [address] [place], [address] Sodium [Moles/Vol] 130 mmol/L Low 136-145 [facility] Comment on above: Order Comment: 'TROP ' Serial specimen #1, #2 or #3: 1 Performed By: #### L 500.4050, M200.1000, L300.4310, L501.4020, L503.6005, L100.0100, L300.3900 ####[facility] [address] [place], [address] T PROT 5.9 g/dL Low 6.4-8.2 [facility] Comment on above: Order Comment: 'TROP ' Serial specimen #1, #2 or #3: 1 Performed By: #### L 500.4050, M200.1000, L300.4310, L501.4020, L503.6005, L100.0100, L300.3900 ####[facility] [address] [place], [address] Urea nitrogen [Mass/Vol] 34 mg/dL High 7-18 [facility] Comment on above: Order Comment: 'TROP ' Serial specimen #1, #2 or #3: 1 Performed By: #### L 500.4050, M200.1000, L300.4310, L501.4020, L503.6005, L100.0100, L300.3900 ####[facility] [address] [place], [address] Emergency Department Summary on 03-31-2024 Emergency Department Summary Normal [facility] H AND P Exam - Hospitaliston 03-31-2024 H&P Exam - Hospitalist Normal [facility] L501.4020on 03-31-2024 TROPONIN-I HS 25 pg/mL Normal 3.0-54.0 [facility] Comment on above: Order Comment: 'TROP ' Serial specimen #1, #2 or #3: 2 Result Comment: Plea se Note: New Test Units and Gender Specific Reference Ranges. For more information see Policy Stat Procedure [place] High Sensitivity Troponin (TNIH) and attachments. Performed By: #### L 501.4020 ####[facility] [address] [place], [address] TROPONIN-I HS 27 pg/mL Normal 3.0-54.0 [facility] Comment on above: Order Comment: 'TROP ' Serial specimen #1, #2 or #3: 1 Result Comment: Plea se Note: New Test Units and Gender Specific Reference Ranges. For more information see Policy Stat Procedure [place] High Sensitivity Troponin (TNIH) and attachments. Performed By: #### L 500.4050, M200.1000, L300.4310, L501.4020, L503.6005, L100.0100, L300.3900 ####[facility] [address] [place], [address](151) Lactic Acidon 03-31-2024 Lactate [Moles/Vol] 1.0 mmol/L Normal 0.4-1.9 [facility] Comment on above: Order Comment: Y Performed By: #### L 500.4050, M200.1000, L300.4310, L501.4020, L503.6005, L100.0100, L300.3900 ####[facility] [address] [place], [address] M100.678on 03-31-2024 M100.678 Pending SARS-CoV-2 (COVID 19) Negative INFLUENZA A Negative INFLUENZA B Negative RSV PCR Negative Normal [facility] Comment on above: Performed By: #### L 400.0001, M100.678, M100.2200 ####[facility] [address] [place], [address] Partial Thromboplast Timeon 03-31-2024 aPTT Coag (Bld) [Time] 41.6 s High 24.1-36.2 [facility] Comment on above: Performed By: #### L 500.4050, M200.1000, L300.4310, L501.4020, L503.6005, L100.0100, L300.3900 ####[facility] [address] [place], [address] Prothrombin Time w/INRon INR Coag (PPP) [Relative time] 1.3 {INR} Normal [facility] Comment on above: Performed By: #### L 500.4050, M200.1000, L300.4310, L501.4020, L503.6005, L100.0100, L300.3900 ####[facility] [address] [place], [address] PT Coag (PPP) [Time] 16.4 s High 11.7-14.9 [facility] Comment on above: Performed By: #### L 500.4050, M200.1000, L300.4310, L501.4020, L503.6005, L100.0100, L300.3900 ####[facility] [address] [place], [address] Urinalysis, Completeon 03-31 BACTERIA 2+ /hpf Normal None Seen [facility] Comment on above: Order Comment: COLLE CTOR TO SPECIFY Performed By: #### L 400.0001, M1.678, M1.2200 ####[facility] [address] [place], [address] WBC 0-5 SEEN Normal 0-5 [facility] Comment on above: Order Comment: COLLE CTOR TO SPECIFY Performed By: #### L 400.0001, M100.678, M1.2200 ####[facility] [address] [place], [address] EPI,SQUAMOUS 0 SEEN Normal 5-10 [facility] Comment on above: Order Comment: COLLE CTOR TO SPECIFY Performed By: #### L 400.0001, M100.678, M100.2200 ####[facility] [address] [place], [address] Mucus Ql (Urine sed) 0 SEEN Normal [facility] Comment on above: Order Comment: COLLE CTOR TO SPECIFY Performed By: #### L 400.0001, M100.678, M100.2200 ####[facility] [address] [place], [address] RBC 0 SEEN Normal 0-5 [facility] Comment on above: Order Comment: COLLE CTOR TO SPECIFY Performed By: #### L 400.0001, M100.678, M100.2200 ####[facility] [address] [place], [address] Hips B/L min 2 views w/ Pelv spencer 03-30-2024 Hips B/L min 2 views w/ Pelvis Normal [facility] Vitamin B12 measurementOrder ed By: Fransisca Orlando on 11-16-2023 Cobalamin (Vitamin B12) [Mass/Vol] 311 pg/mL 211-911 [facility] Absolute lymphocyte countOrd ered By: Fransisca Orlando on 05-11-2023 Lymphocytes Auto (Unsp spec) [#/Vol] 0.64 10*3/uL 0.83-4.51 [facility] Basophil percentageOrdered B y: Fransisca Orlando on 05-11-2023 Basophils/100 WBC (Bld) 0.6 % 0-1 [facility] Eosinophils/100 WBC (Bld) 10.1 % 0-5 [facility] Neutrophils (Bld) [#/Vol] 2.1 10*3/uL 2.0-7.7 [facility] Neutrophils/100 WBC (Bld) 59.2 % 47-70 [facility] WBC (Bld) [#/Vol] 3.5 10*3/uL 4.4-11.0 [facility] Blood erythrocytes count (nu mber/volume)Ordered By: Fransisca Orlando on 05-11-2023 RBC (Bld) [#/Vol] 3.38 10*6/uL 4.2-5.4 [facility] Blood hemoglobin measurement (mass/volume)Ordered By: Fransisca Orlando on 05-11-2023 Hemoglobin (Bld) [Mass/Vol] 11.5 g/dL 12.0-15.0 [facility] Blood lymphocytes/100 leukoc ytesOrdered By: Fransisca Orlando on 05-11-2023 Lymphocytes/100 WBC (Bld) 18.5 % 19-41 [facility] Blood monocytes/100 leukocyt esOrdered By: Fransisca Orlando on 05-11-2023 Monocytes/100 WBC (Bld) 11.3 % 0-10 [facility] Blood platelet mean volumeOr dered By: Fransisca Orlando on 05-11-2023 Platelet mean volume (Bld) [Entitic vol] 9.9 fL 6.2-12.0 [facility] Determination of erythrocyte mean corpuscular volume (MCV)Ordered By: Fransisca Orlando on 05-11-2023 MCV (RBC) [Entitic vol] 100.3 fL 81-99 [facility] Hematocrit Auto (Bld) [Volum e fraction][facility]: [facility] 05-11-2023 Hematocrit (Bld) [Volume fraction] 33.9 % 37-47 [facility] Hemoglobin in reticulocytes (mass per reticulocyte)Ordered By: [facility] on 05-11-2023 Hemoglobin (Reticulocytes) [Entitic mass] 34.8 pg 30-35 [facility] Iron measurement (mass/mass) Ordered By: Fransisca Orlando on 05-11-2023 Iron (Unsp spec) [Mass/Mass] 137 ug/dL 50-170 [facility] Laboratory - Hematology and Cell countsOrdered By: [facility] on 05-11-2023 Erythrocyte distribution width (RBC) [Entitic vol] 47.0 fL 35.1-43.9 [facility] Erythrocyte distribution width (RBC) [Ratio] 12.7 % 11.6-14.6 [facility] Immature granulocytes/100 WBC (Bld) 0.300 % 0.0-0.9 [facility] Comment on above: IG% - Immature Granu locytes (promyelocytes, myelocytes and metamyelocytes) > 1% indicates that a LEFT SHIFT is Present. MCH (RBC) [Entitic mass] 34.0 pg 27.0-32.0 [facility] Nucleated RBC/100 WBC (Bld) [Ratio] 0 % 0-5 [facility] MCHC Auto (RBC) [Mass/Vol]Or dered By: Fransisca Orlando on 05-11-2023 MCHC (RBC) [Mass/Vol] 33.9 g/dL 32-36 [facility] No Panel InformationOrdered By: Fransisca Orlando on 05-11-2023 Immature Reticulocyte Fraction 10.40 % 3.00-15.90 [facility] Reticulocyte Count 1.96 % 0.5-1.5 [facility] Total Iron Binding Capacity 213 ug/dL 250-450 [facility] Platelets bldOrdered By: Kenan Orlando on 05-11-2023 Platelets (Bld) [#/Vol] 167 10*3/uL 150-450 [facility] Serum or plasma ferritin pineda surement (mass/volume)Ordered By: Fransisca Orlando on 05-11-2023 Ferritin [Mass/Vol] 82 ng/mL 8-252 [facility] Serum or plasma iron saturat ion measurement (mass fraction)Ordered By: Fransisca Orlando on 05-11-2023 Iron saturation [Mass fraction] 64.3 % 15.0-55.0 [facility] Laboratory - Chemistry and C hemistry - challengeOrdered By: Fransisca Orlando on 11-03-2022 Cobalamin (Vitamin B12) [Mass/Vol] 370 pg/mL [facility] Laboratory - Chemistry and C hemistry - challengeOrdered By: Ingrid Grimaldo on 08-11-2022 Cobalamin (Vitamin B12) [Mass/Vol] 775 pg/mL [facility] Serum or plasma folate measu rement (mass/volume)Ordered By: Ingrid Grimaldo on 08-11-2022 Folate [Mass/Vol] 12.70 ng/mL 3.1-55.4 [facility] Culture, urineOrdered By: Dr Sadia Trevizo on 08-08-2022 Bacteria identified Cx Nom (U) Escherichia coli [facility] Basophil percentageOrdered B y: Dr. Arce on 08-06-2022 Chloride [Moles/Vol] 100 mmol/L 98-107 [facility] Glucose [Mass/Vol] 100 mg/dL 74-106 [facility] Comment on above: Fasting Glucose resu lt from 100 to 125 mg/dL suggests IMPAIRED HOMEOSTASIS per A.D.A. criteria. Potassium [Moles/Vol] 4.1 mmol/L 3.5-5.1 [facility] Sodium [Moles/Vol] 136 mmol/L 136-145 [facility] WBC (Bld) [#/Vol] 7.0 10*3/uL 4.4-11.0 [facility] Basophil percentageOrdered B y: Dr. Trevizo on 08-06-2022 Basophil percentage 25-50 SEEN /hpf 0-5 [facility] Bilirubin Test strip Ql (U)O rdered By: Dr. Trevizo on 08-06-2022 Bilirubin Ql (U) Negative Negative [facility] Blood erythrocytes count (nu mber/volume)Ordered By: Dr. Arce on 08-06-2022 RBC (Bld) [#/Vol] 3.48 10*6/uL 4.2-5.4 [facility] Blood hemoglobin measurement (mass/volume)Ordered By: Dr. Arce on 08-06-2022 Hemoglobin (Bld) [Mass/Vol] 11.3 g/dL 12.0-15.0 [facility] Blood platelet mean volumeOr dered By: Dr. Arce on 08-06-2022 Platelet mean volume (Bld) [Entitic vol] 9.8 fL 6.2-12.0 [facility] Determination of erythrocyte mean corpuscular volume (MCV)Ordered By: Dr. Arce on 08-06-2022 MCV (RBC) [Entitic vol] 100.3 fL 81-99 [facility] Hematocrit Auto (Bld) [Volum e fraction]Ordered By: Dr. Arce on 08-06-2022 Hematocrit (Bld) [Volume fraction] 34.9 % 37-47 [facility] Ketones Test strip Ql (U)Ord ered By: Dr. Trevizo on 08-06-2022 Ketones Ql (U) Negative Negative [facility] Laboratory - Chemistry and C hemistry - challengeOrdered By: Dr. Arce on 08-06-2022 CO2 [Moles/Vol] 32.0 mmol/L 21.0-32.0 [facility] Urea nitrogen/Creatinine [Mass ratio] 28.1 mg/mg 10-20 [facility] Laboratory - Hematology and Cell countsOrdered By: Dr. Arce on 08-06-2022 Erythrocyte distribution width (RBC) [Entitic vol] 49.0 fL 35.1-43.9 [facility] Erythrocyte distribution width (RBC) [Ratio] 13.3 % 11.6-14.6 [facility] MCH (RBC) [Entitic mass] 32.5 pg 27.0-32.0 [facility] MCHC Auto (RBC) [Mass/Vol]Or dered By: Dr. Arce on 08-06-2022 MCHC (RBC) [Mass/Vol] 32.4 g/dL 32-36 [facility] Mucus LM Ql (Urine sed)Order ed By: Dr. Trevizo on 08-06-2022 Mucus Ql (Urine sed) 0 SEEN /hpf [facility] Nitrite Test strip Ql (U)Ord ered By: Dr. Trevizo on 08-06-2022 Nitrite Ql (U) Positive Negative [facility] No Panel InformationOrdered By: Dr. Arce on 08-06-2022 Estimated GFR (MDRD) Amer 208 mL/min >60 [facility] Comment on above: GFR Calc Estimated GFR (MDRD) Non-Af Amer 172 mL/min >60 [facility] Comment on above: Non- GFR Calc Thyroid Stimulating Hormone (TSH) 1.03 uIU/mL 0.358-3.74 [facility] Platelets bldOrdered By: Dr. Arce on 08-06-2022 Platelets (Bld) [#/Vol] 269 10*3/uL 150-450 [facility] Protein Test strip Ql (U)Ord ered By: Dr. Trevizo on 08-06-2022 Protein Ql (U) 30 mg/dl Negative [facility] Serum or plasma calcium cedric urement (mass/volume)Ordered By: Dr. Arce on 08-06-2022 Calcium [Mass/Vol] 8.9 mg/dL 8.5-10.1 [facility] Serum or plasma creatinine m easurement (mass/volume)Ordered By: Dr. Arce on 08-06-2022 Creatinine [Mass/Vol] 0.39 mg/dL 0.55-1.02 [facility] Comment on above: The validity of the calculated GFR & GFRAA in patients over 70 years has not been determined. Clinical correlation is essential. Serum or plasma urea nitroge n measurement (mass/volume)Ordered By: Dr. Arce on 08-06-2022 Urea nitrogen [Mass/Vol] 11 mg/dL 7-18 [facility] Squamous epithelial cells de tection in urine sediment by light microscopyOrdered By: Dr. Trevizo on 08-06-2022 Epithelial cells.squamous LM Ql (Urine sed) 0 SEEN /hpf 5-10 [facility] Thin prep Papanicolaou smear with manual screeningOrdered By: Dr. Arce on 08-06-2022 Thin prep Papanicolaou smear with manual screening 4 5-15 [facility] Urine blood detectionOrdered By: Dr. Trevizo on 08-06-2022 RBC Ql (U) 50 /ul Negative [facility] RBC Ql (U) 10-25 SEEN /hpf 0-5 [facility] Urine clarityOrdered By: Dr. Trevizo on 08-06-2022 Clarity (U) Cloudy Clear [facility] Urine color determinationOrd ered By: Dr. Trevizo on 08-06-2022 Color (U) Yellow Yellow [facility] Urine glucose detectionOrder ed By: Dr. Trevizo on 08-06-2022 Glucose Ql (U) Normal mg/dl Normal [facility] Urine leukocyte esterase det ection by dipstickOrdered By: Dr. Trevizo on 08-06-2022 Leukocyte esterase Test strip Ql (U) 500 /ul Negative [facility] Urine pHOrdered By: Dr. Wadsworth iff on 08-06-2022 pH (U) 7.0 [pH] 5.0 - 8.0 [facility] Urine sediment bacteria coun t by microscopy (number/high power field)Ordered By: Dr. Trevizo on 08-06-2022 Bacteria LM.HPF (Urine sed) [#/Area] 3 /[HPF] None Seen [facility] Urine specific gravity measu rementOrdered By: Dr. Trevizo on 08-06-2022 Specific gravity (U) [Rel density] 1.005 1.002-1.030 [facility] Urobilinogen Auto test strip Ql (U)Ordered By: Dr. Trevizo on 08-06-2022 Urobilinogen Ql (U) Normal mg/dl Normal [facility] Absolute lymphocyte countOrd ered By: Stef Ewing on 06-04-2022 Lymphocytes Auto (Unsp spec) [#/Vol] 0.87 10*3/uL 0.83-4.51 [facility] Albumin Elph [Mass/Vol]Order ed By: Stef Ewing on 06-04-2022 Albumin [Mass/Vol] 4.0 g/dL 2.9-4.4 [facility] Basophil percentageOrdered B y: Stef Ewing on 06-04-2022 Basophils/100 WBC (Bld) 0.5 % 0-1 [facility] Eosinophils/100 WBC (Bld) 1.6 % 0-5 [facility] LDH [Catalytic activity/Vol] 191 U/L 84-246 [facility] Neutrophils (Bld) [#/Vol] 3.1 10*3/uL 2.0-7.7 [facility] Neutrophils/100 WBC (Bld) 71.4 % 47-70 [facility] WBC (Bld) [#/Vol] 4.3 10*3/uL 4.4-11.0 [facility] Blood erythrocytes count (nu mber/volume)Ordered By: Stef Ewing on 06-04-2022 RBC (Bld) [#/Vol] 3.58 10*6/uL 4.2-5.4 [facility] Blood hemoglobin measurement (mass/volume)Ordered By: Stef Ewing on 06-04-2022 Hemoglobin (Bld) [Mass/Vol] 12.1 g/dL 12.0-15.0 [facility] Blood lymphocytes/100 leukoc ytesOrdered By: Stef Ewing on 06-04-2022 Lymphocytes/100 WBC (Bld) 20.1 % 19-41 [facility] Blood monocytes/100 leukocyt esOrdered By: Stef Ewing on 06-04-2022 Monocytes/100 WBC (Bld) 6.2 % 0-10 [facility] Blood platelet mean volumeOr dered By: Stef Ewing on 06-04-2022 Platelet mean volume (Bld) [Entitic vol] 9.8 fL 6.2-12.0 [facility] Determination of erythrocyte mean corpuscular volume (MCV)Ordered By: Stef Ewing on 06-04-2022 MCV (RBC) [Entitic vol] 101.7 fL 81-99 [facility] Hematocrit Auto (Bld) [Volum e fraction]Ordered By: Stef Ewing on 06-04-2022 Hematocrit (Bld) [Volume fraction] 36.4 % 37-47 [facility] Hemoglobin in reticulocytes (mass per reticulocyte)Ordered By: Stef Ewing on 06-04-2022 Hemoglobin (Reticulocytes) [Entitic mass] 35.8 pg 30-35 [facility] Interpretation of serum or p lasma protein pattern by immunofixation (narrative resultOrdered By: Stef Ewing on 06-04-2022 Protein Fractions Immunofixation Xavier [Interp] See comment [facility] Comment on above: Result: Not Observed Iron measurement (mass/mass) Ordered By: Stef Ewing on 06-04-2022 Iron (Unsp spec) [Mass/Mass] 147 ug/dL 50-170 [facility] Laboratory - Hematology and Cell countsOrdered By: Stef Ewing on 06-04-2022 Erythrocyte distribution width (RBC) [Entitic vol] 49.3 fL 35.1-43.9 [facility] Erythrocyte distribution width (RBC) [Ratio] 13.2 % 11.6-14.6 [facility] Immature granulocytes/100 WBC (Bld) 0.200 % 0.0-0.9 [facility] Comment on above: IG% - Immature Granu locytes (promyelocytes, myelocytes and metamyelocytes) > 1% indicates that a LEFT SHIFT is Present. MCH (RBC) [Entitic mass] 33.8 pg 27.0-32.0 [facility] Nucleated RBC/100 WBC (Bld) [Ratio] 0 % 0-5 [facility] Auto (RBC) [Mass/Vol]Or dered By: Stef Ewing on 06-04-2022 MCHC (RBC) [Mass/Vol] 33.2 g/dL 32-36 [facility] No Panel InformationOrdered By: Stef Ewing on 06-04-2022 Addendum Document Comment . [facility] Comment on above: Protein electrophore sis scan will follow via computer,mail, or real estate administrator delivery. Haptoglobin 60 mg/dL 42-346 [facility] Comment on above: Performed at: [facility] [address] [id number] Director: Martín Hobbs PhD, Phone: [phone] Immature Reticulocyte Fraction 12.90 % 3.00-15.90 [facility] Reticulocyte Count 1.89 % 0.5-1.5 [facility] Total Iron Binding Capacity 280 ug/dL 250-450 [facility] Platelets bldOrdered By: Kt Ewing on 06-04-2022 Platelets (Bld) [#/Vol] 218 10*3/uL 150-450 [facility] Serum [id number] measu rement by electrophoresisOrdered By: Stef Ewing on 06-04-2022 Alpha 1 globulin Elph [Mass/Vol] 0.2 g/dL 0.0-0.4 [facility] Alpha 1 globulin Elph [Mass/Vol] 0.5 g/dL 0.4-1.0 [facility] Serum globulin measurement ( mass/volume)Ordered By: Stef Ewing on 06-04-2022 Globulin (S) [Mass/Vol] 2.5 g/dL 2.2-3.9 [facility] Serum or plasma IgA measurem ent (mass/volume)Ordered By: Stef Ewing on 06-04-2022 IgA [Mass/Vol] 178 mg/dL 64-422 [facility] Serum or plasma IgG measurem ent (mass/volume)Ordered By: Stef Ewing on 06-04-2022 IgG [Mass/Vol] 999 mg/dL 586-1602 [facility] Serum or plasma IgM measurem ent (mass/volume)Ordered By: Stef Ewing on 06-04-2022 IgM [Mass/Vol] 85 mg/dL 26-217 [facility] Serum or plasma beta globuli n measurement by electrophoresis (mass/volume)Ordered By: Stef Ewing on 06-04-2022 Beta globulin Elph [Mass/Vol] 0.9 g/dL 0.7-1.3 [facility] Serum or plasma ferritin pineda surement (mass/volume)Ordered By: Stef Ewing on 06-04-2022 Ferritin [Mass/Vol] 13 ng/mL 8-252 [facility] Serum or plasma gamma globul in measurement by electrophoresis (mass/volume)Ordered By: Stef Ewing on 06-04-2022 Gamma globulin Elph [Mass/Vol] 0.9 g/dL 0.4-1.8 [facility] Serum or plasma immunoelectr ophoresis interpretation (nominal result)Ordered By: Stef Ewing on 06-04-2022 Interpretation IEP [Interp] Comment . [facility] Comment on above: No monoclonality det ected. Thin prep Papanicolaou smear with manual screeningOrdered By: Stef Ewing on 06-04-2022 Thin prep Papanicolaou smear with manual screening 1.7 0.7-1.7 [facility] Total protein bloodOrdered B y: Stef Ewing on 06-04-2022 Protein [Mass/Vol] 6.5 g/dL 6.0-8.5 [facility] Absolute lymphocyte countOrd ered By: Dr. Orlando on 05-06-2022 Lymphocytes Auto (Unsp spec) [#/Vol] 0.95 10*3/uL 0.83-4.51 [facility] Basophil percentageOrdered B y: Dr. Orlando on 05-06-2022 Basophils/100 WBC (Bld) 0.9 % 0-1 [facility] Eosinophils/100 WBC (Bld) 4.4 % 0-5 [facility] Neutrophils (Bld) [#/Vol] 2.0 10*3/uL 2.0-7.7 [facility] Neutrophils/100 WBC (Bld) 57.1 % 47-70 [facility] WBC (Bld) [#/Vol] 3.4 10*3/uL 4.4-11.0 [facility] Blood erythrocytes count (nu mber/volume)Ordered By: Dr. Orlando on 05-06-2022 RBC (Bld) [#/Vol] 3.49 10*6/uL 4.2-5.4 [facility] Blood hemoglobin measurement (mass/volume)Ordered By: Dr. Orlando on 05-06-2022 Hemoglobin (Bld) [Mass/Vol] 11.5 g/dL 12.0-15.0 [facility] Blood lymphocytes/100 leukoc ytesOrdered By: Dr. Orlando on 05-06-2022 Lymphocytes/100 WBC (Bld) 27.9 % 19-41 [facility] Blood monocytes/100 leukocyt esOrdered By: Dr. Orlando on 05-06-2022 Monocytes/100 WBC (Bld) 9.4 % 0-10 [facility] Blood platelet mean volumeOr dered By: Dr. Orlando on 05-06-2022 Platelet mean volume (Bld) [Entitic vol] 9.6 fL 6.2-12.0 [facility] Determination of erythrocyte mean corpuscular volume (MCV)Ordered By: Dr. Orlando on 05-06-2022 MCV (RBC) [Entitic vol] 101.4 fL 81-99 [facility] Hematocrit Auto (Bld) [Volum e fraction]Ordered By: Dr. Orlando on 05-06-2022 Hematocrit (Bld) [Volume fraction] 35.4 % 37-47 [facility] Iron measurement (mass/mass) Ordered By: Dr. Orlando on 05-06-2022 Iron (Unsp spec) [Mass/Mass] 149 ug/dL 50-170 [facility] Laboratory - Hematology and Cell countsOrdered By: Dr. Orlando on 05-06-2022 Erythrocyte distribution width (RBC) [Entitic vol] 49.5 fL 35.1-43.9 [facility] Erythrocyte distribution width (RBC) [Ratio] 13.2 % 11.6-14.6 [facility] Immature granulocytes/100 WBC (Bld) 0.300 % 0.0-0.9 [facility] Comment on above: IG% - Immature Granu locytes (promyelocytes, myelocytes and metamyelocytes) > 1% indicates that a LEFT SHIFT is Present. MCH (RBC) [Entitic mass] 33.0 pg 27.0-32.0 [facility] Nucleated RBC/100 WBC (Bld) [Ratio] 0 % 0-5 [facility] MCHC Auto (RBC) [Mass/Vol]Or dered By: Dr. Orlando on 05-06-2022 MCHC (RBC) [Mass/Vol] 32.5 g/dL 32-36 [facility] No Panel InformationOrdered By: Dr. Orlando on 05-06-2022 Total Iron Binding Capacity 246 ug/dL 250-450 [facility] Platelets bldOrdered By: Dr. Orlando on 05-06-2022 Platelets (Bld) [#/Vol] 213 10*3/uL 150-450 [facility] Serum or plasma ferritin pineda surement (mass/volume)Ordered By: Dr. Orlando on 05-06-2022 Ferritin [Mass/Vol] 16 ng/mL 8-252 [facility] Serum or plasma iron saturat ion measurement (mass fraction)Ordered By: Dr. Orlando on 05-06-2022 Iron saturation [Mass fraction] 60.6 % 15.0-55.0 [facility] Absolute lymphocyte counton 02-06-2022 Lymphocytes Auto (Unsp spec) [#/Vol] 0.86 10*3/uL 0.83-4.51 [facility] Work Phone: Basophil percentageon 2021 Basophils/100 WBC (Bld) 0.6 % 0-1 [facility] Work Phone: Eosinophils/100 WBC (Bld) 4.7 % 0-5 [facility] Work Phone: Neutrophils (Bld) [#/Vol] 2.1 10*3/uL 2.0-7.7 [facility] Work Phone: Neutrophils/100 WBC (Bld) 61.5 % 47-70 [facility] Work Phone: WBC (Bld) [#/Vol] 3.4 10*3/uL 4.4-11.0 [facility] Work Phone: [phone] Blood erythrocytes count (nu mber/volume)on 02-06-2022 RBC (Bld) [#/Vol] 3.77 10*6/uL 4.2-5.4 [facility] Work Phone: Blood hemoglobin measurement (mass/volume)on 02-06-2022 Hemoglobin (Bld) [Mass/Vol] 10.7 g/dL 12.0-15.0 [facility] Work Phone: Blood lymphocytes/100 leukoc yteson 02-06-2022 Lymphocytes/100 WBC (Bld) 25.5 % 19-41 [facility] Work Phone: [phone] Blood monocytes/100 leukocyt eson 02-06-2022 Monocytes/100 WBC (Bld) 7.4 % 0-10 [facility] Work Phone: Blood platelet mean volumeon 02-06-2022 Platelet mean volume (Bld) [Entitic vol] 8.7 fL 6.2-12.0 [facility] Work Phone: Determination of erythrocyte mean corpuscular volume (MCV)on 02-06-2022 MCV (RBC) [Entitic vol] 89.1 fL 81-99 [facility] Work Phone: Hematocrit Auto (Bld) [Volum e fraction]on 02-06-2022 Hematocrit (Bld) [Volume fraction] 33.6 % 37-47 [facility] Work Phone: Hemoglobin in reticulocytes (mass per reticulocyte)Ordered By: Dr. Orlando on 02-06-2022 Hemoglobin (Reticulocytes) [Entitic mass] 34.5 pg 30-35 [facility] Iron measurement (mass/mass) on 02-06-2022 Iron (Unsp spec) [Mass/Mass] 180 ug/dL 50-170 [facility] Work Phone: Laboratory - Chemistry and C hemistry - challengeOrdered By: Dr. Orlando on 02-06-2022 Cobalamin (Vitamin B12) [Mass/Vol] 357 pg/mL 211-911 [facility] Laboratory - Hematology and Cell countsOrdered By: Dr. Orlando on 02-06-2022 Anisocytosis Ql (Bld) 1+ [facility] Laboratory - Hematology and Cell countson 02-06-2022 Erythrocyte distribution width (RBC) [Entitic vol] 87.0 fL 35.1-43.9 [facility] Work Phone: [phone] Erythrocyte distribution width (RBC) [Ratio] 28.3 % 11.6-14.6 [facility] Work Phone: [phone] Immature granulocytes/100 WBC (Bld) 0.300 % 0.0-0.9 [facility] Work Phone: [phone] Comment on above: IG% - Immature Granu locytes (promyelocytes, myelocytes and metamyelocytes) > 1% indicates that a LEFT SHIFT is Present. MCH (RBC) [Entitic mass] 28.4 pg 27.0-32.0 [facility] Work Phone: [phone] Nucleated RBC/100 WBC (Bld) [Ratio] 0 % 0-5 [facility] Work Phone: [phone] MCHC Auto (RBC) [Mass/Vol]on 02-06-2022 MCHC (RBC) [Mass/Vol] 31.8 g/dL 32-36 [facility] Work Phone: No Panel InformationOrdered By: Dr. Orlando on 02-06-2022 Immature Reticulocyte Fraction 10.80 % 3.00-15.90 [facility] Reticulocyte Count 1.16 % 0.5-1.5 [facility] No Panel Informationon 02-06 Total Iron Binding Capacity 293 ug/dL 250-450 [facility] Work Phone: No Panel InformationOrdered By: Fransisca Orlando on 02-06-2022 1+ [facility] Platelets bldon 02-06-2022 Platelets (Bld) [#/Vol] 188 10*3/uL 150-450 [facility] Work Phone: Serum or plasma ferritin pineda surement (mass/volume)on 02-06-2022 Ferritin [Mass/Vol] 14 ng/mL 8-252 [facility] Work Phone: Serum or plasma iron saturat ion measurement (mass fraction)on 02-06-2022 Iron saturation [Mass fraction] 61.4 % 15.0-55.0 [facility] Work Phone: Absolute lymphocyte counton 01-03-2022 Lymphocytes Auto (Unsp spec) [#/Vol] 0.87 10*3/uL 0.83-4.51 [facility] Work Phone: Basophil percentageon 2021 Basophils/100 WBC (Bld) 1.0 % 0-1 [facility] Work Phone: Eosinophils/100 WBC (Bld) 3.9 % 0-5 [facility] Work Phone: Neutrophils (Bld) [#/Vol] 2.7 10*3/uL 2.0-7.7 [facility] Work Phone: Neutrophils/100 WBC (Bld) 66.5 % 47-70 [facility] Work Phone: WBC (Bld) [#/Vol] 4.1 10*3/uL 4.4-11.0 [facility] Work Phone: Blood erythrocytes count (nu mber/volume)on 01-03-2022 RBC (Bld) [#/Vol] 4.13 10*6/uL 4.2-5.4 [facility] Work Phone: Blood hemoglobin measurement (mass/volume)on 01-03-2022 Hemoglobin (Bld) [Mass/Vol] 9.5 g/dL 12.0-15.0 [facility] Work Phone: Blood lymphocytes/100 leukoc yteson 01-03-2022 Lymphocytes/100 WBC (Bld) 21.1 % 19-41 [facility] Work Phone: Blood manual differential co mment interpretation (narrative result)on 01-03-2022 Manual differential comment Xavier (Bld) [Interp] SCANNED [facility] Work Phone: Blood monocytes/100 leukocyt eson 01-03-2022 Monocytes/100 WBC (Bld) 7.3 % 0-10 [facility] Work Phone: Blood platelet mean volumeon 01-03-2022 Platelet mean volume (Bld) [Entitic vol] 9.4 fL 6.2-12.0 [facility] Work Phone: Determination of erythrocyte mean corpuscular volume (MCV)on 01-03-2022 MCV (RBC) [Entitic vol] 79.4 fL 81-99 [facility] Work Phone: Hematocrit Auto (Bld) [Volum e fraction]on 01-03-2022 Hematocrit (Bld) [Volume fraction] 32.8 % 37-47 [facility] Work Phone: [phone] Hypochromatic red blood cell detectionon 01-03-2022 Hypochromia Ql (Bld) 3+ [facility] Work Phone: Laboratory - Hematology and Cell countson 01-03-2022 Anisocytosis Ql (Bld) 2+ [facility] Work Phone: [phone] Erythrocyte distribution width (RBC) [Entitic vol] 66.3 fL 35.1-43.9 [facility] Work Phone: [phone] Erythrocyte distribution width (RBC) [Ratio] 25.1 % 11.6-14.6 [facility] Work Phone: [phone] Immature granulocytes/100 WBC (Bld) 0.200 % 0.0-0.9 [facility] Work Phone: Comment on above: IG% - Immature Granu locytes (promyelocytes, myelocytes and metamyelocytes) > 1% indicates that a LEFT SHIFT is Present. MCH (RBC) [Entitic mass] 23.0 pg 27.0-32.0 [facility] Work Phone: Nucleated RBC/100 WBC (Bld) [Ratio] 0 % 0-5 [facility] Work Phone: MCHC Auto (RBC) [Mass/Vol]on 01-03-2022 MCHC (RBC) [Mass/Vol] 29.0 g/dL 32-36 [facility] Work Phone: Platelets bldon 01-03-2022 Platelets (Bld) [#/Vol] 216 10*3/uL 150-450 [facility] Work Phone: Albumin Elph [Mass/Vol]on Albumin [Mass/Vol] 3.8 g/dL 2.9-4.4 [facility] Work Phone: Atypical perinuclear antineu trophil cytoplasmic antibodies measurementon 12-27-2021 Neutrophil cytoplasmic Ab.perinuclear.atypical IF (S) [Titer] <1:20 titer Neg:<1:20 [facility] Work Phone: Comment on above: The atypical pANCA p attern has been observed in asignificant percentage of patients with ulcerative colitis,primary sclerosing cholangitis and autoimmune hepatitis. Basophil percentageon 2021 Basophil percentage < 0.2 AI 0.0-0.9 [facility] Work Phone: Interpretation of serum or p lasma protein pattern by immunofixation (narrative resulton 12-27-2021 Protein Fractions Immunofixation Xavier [Interp] See comment [facility] Work Phone: Comment on above: Result: Not Observed Laboratory - Chemistry and C hemistry - challengeon 12-27-2021 Cobalamin (Vitamin B12) [Mass/Vol] 388 pg/mL 211-911 [facility] Work Phone: Free T4 [Mass/Vol] 0.95 ng/dL 0.76-1.46 [facility] Work Phone: No Panel Informationon 12-27 Addendum Document Comment . [facility] Work Phone: Comment on above: Protein electrophore sis scan will follow via computer,mail, or real estate administrator delivery. Centromere B Antibody <0.2 AI 0.0-0.9 [facility] Work Phone: [phone] Endomysial IgA Antibody Negative Negative [facility] Work Phone: [phone] Free Triiodothyronine (T3) pg/dL 2.2 pg/mL 2.18-3.98 [facility] Work Phone: [phone] Immunoglobulin E 83 IU/mL 6-495 [facility] Work Phone: [phone] Comment on above: Performed at: [employer] [place], [place] [id number] Director: Martín Hobbs PhD, Phone: [phone] at: [facility] Lab[address] [id number] Director: Eliel Hu MD, Phone: [phone] TECHNICAL ARTIST Antibody 1.1 AI 0.0-0.9 [facility] Work Phone: [phone] Thyroid Stimulating Hormone (TSH) 1.85 uIU/mL 0.358-3.74 [facility] Work Phone: [phone] Serum DNA double strand anti body assay (units/volume)on 12-27-2021 DNA double strand Ab Qn (S) [IU]/mL 0-9 [facility] Work Phone: [phone] Comment on above: Negative <5 Equivoca l 5 - 9 Positive >9 Serum IgA measurement (units /volume)on 12-27-2021 IgA Qn (S) 198 mg/dL 87-352 [facility] Work Phone: [phone] Comment on above: Performed at: [facility] [place], [place] [id number] Director: Martín Hobbs PhD, Phone: [phone] Serum Sharda-1 antibody assay (u nits/volume)on 12-27-2021 Sharda-1 extractable nuclear Ab Qn (S) <0.2 AI 0.0-0.9 [facility] Work Phone: [phone] Serum Scl-70 extractable nuc lear antibody assay (units/volume)on 12-27-2021 SCL-70 extractable nuclear Ab Qn (S) <0.2 AI 0.0-0.9 [facility] Work Phone: [phone] Serum Acuna extractable nucl ear antibody detectionon 12-27-2021 Acuna extractable nuclear Ab Ql (S) <0.2 AI 0.0-0.9 [facility] Work Phone: [phone] Serum [id number] measu rement by electrophoresison 12-27-2021 Alpha 1 globulin Elph [Mass/Vol] 0.3 g/dL 0.0-0.4 [facility] Work Phone: [phone] Alpha 1 globulin Elph [Mass/Vol] 0.6 g/dL 0.4-1.0 [facility] Work Phone: [phone] Serum classic neutrophil cyt oplasmic antibody assay (units/volume)on 12-27-2021 Neutrophil cytoplasmic Ab.classic Qn (S) <1:20 titer Neg:<1:20 [facility] Work Phone: [phone] Serum globulin measurement ( mass/volume)on 12-27-2021 Globulin (S) [Mass/Vol] 3.1 g/dL 2.2-3.9 [facility] Work Phone: [phone] Serum or plasma IgA measurem ent (mass/volume)on 12-27-2021 IgA [Mass/Vol] 194 mg/dL 87-352 [facility] Work Phone: [phone] Serum or plasma IgG measurem ent (mass/volume)on 12-27-2021 IgG [Mass/Vol] 1080 mg/dL [phone] [facility] Work Phone: [phone] Serum or plasma IgM measurem ent (mass/volume)on 12-27-2021 IgM [Mass/Vol] 97 mg/dL 26-217 [facility] Work Phone: [phone] Serum or plasma actin IgG an tibody assay (units/volume)on 12-27-2021 Actin IgG Qn 4 Units 0-19 [facility] Work Phone: [phone] Comment on above: Negative 0 - 19 Weak positive 20 - 30 Moderate to strong positive >30 Actin Antibodies are found in 52-85% of patients with autoimmune hepatitis or chronic active hepatitis and in 22% of patients with primary biliary cirrhosis. Serum or plasma beta globuli n measurement by electrophoresis (mass/volume)on 12-27-2021 Beta globulin Elph [Mass/Vol] 1.0 g/dL 0.7-1.3 [facility] Work Phone: Serum or plasma gamma globul in measurement by electrophoresis (mass/volume)on 12-27-2021 Gamma globulin Elph [Mass/Vol] 1.1 g/dL 0.4-1.8 [facility] Work Phone: Serum or plasma immunoelectr ophoresis interpretation (nominal result)on 12-27-2021 Interpretation IEP [Interp] Comment . [facility] Work Phone: Comment on above: No monoclonality det ected. Serum perinuclear neutrophil cytoplasmic antibody titer by immunofluorescenceon 12-27-2021 Neutrophil cytoplasmic Ab.perinuclear IF (S) [Titer] <1:20 titer Neg:<1:20 [facility] Work Phone: Comment on above: The presence of posi tive fluorescence exhibiting P-ANCA orC-ANCA patterns alone is not specific for the diagnosis ofWegener's Granulomatosis (WG) or microscopic polyangiitis.Decisions about treatment should not be based solely onANCA IFA results. The [employer] Consensusrecommends follow up testing of positive sera with both CO-3 and MPO-ANCA enzyme immunoassays. As many as 5% serumsamples are positive only by EIA. Ref. AM J Clin Hwcxry8106;111:507-513. Serum tissue transglutaminas e IgA antibody assay (units/volume)on 12-27-2021 tTG IgA Qn (S) 3 U/mL 0-3 [facility] Work Phone: Comment on above: Negative 0 - 3 Weak Positive 4 - 10 Positive >10 Tissue Transglutaminase (tTG) has been identified as the endomysial antigen. Studies have demonstr- ated that endomysial IgA antibodies have over 99% specificity for gluten sensitive enteropathy. Thin prep Papanicolaou smear with manual screeningon 12-27-2021 Thin prep Papanicolaou smear with manual screening 1.3 0.7-1.7 [facility] Work Phone: Total protein bloodon 2021 Protein [Mass/Vol] 6.9 g/dL 6.0-8.5 [facility] Work Phone: Absolute lymphocyte counton 12-26-2021 Lymphocytes Auto (Unsp spec) [#/Vol] 0.84 10*3/uL 0.83-4.51 [facility] Work Phone: Basophil percentageon 2021 Basophils/100 WBC (Bld) 0.8 % 0-1 [facility] Work Phone: Chloride [Moles/Vol] 104 mmol/L 98-107 [facility] Work Phone: Eosinophils/100 WBC (Bld) 9.7 % 0-5 [facility] Work Phone: Glucose [Mass/Vol] 93 mg/dL 74-106 [facility] Work Phone: Neutrophils (Bld) [#/Vol] 1.2 10*3/uL 2.0-7.7 [facility] Work Phone: Neutrophils/100 WBC (Bld) 45.7 % 47-70 [facility] Work Phone: Potassium [Moles/Vol] 3.9 mmol/L 3.5-5.1 [facility] Work Phone: Sodium [Moles/Vol] 138 mmol/L 136-145 [facility] Work Phone: WBC (Bld) [#/Vol] 2.6 10*3/uL 4.4-11.0 [facility] Work Phone: Blood erythrocytes count (nu mber/volume)on 12-26-2021 RBC (Bld) [#/Vol] 2.76 10*6/uL 4.2-5.4 [facility] Work Phone: Blood hemoglobin measurement (mass/volume)on 12-26-2021 Hemoglobin (Bld) [Mass/Vol] 5.4 g/dL 12.0-15.0 [facility] Work Phone: Comment on above: CRITICAL VALUE VERIF IED. CALLED TO EFE ENAMORADO WITH DR. ARCE12/26/21 6520 Jennifer Fulton.RESULTS READ BACK BY SAME . Blood lymphocytes/100 leukoc yteson 12-26-2021 Lymphocytes/100 WBC (Bld) 32.6 % 19-41 [facility] Work Phone: [phone] Blood manual differential co mment interpretation (narrative result)on 12-26-2021 Manual differential comment Xavier (Bld) [Interp] SCANNED [facility] Work Phone: [phone] Blood monocytes/100 leukocyt eson 12-26-2021 Monocytes/100 WBC (Bld) 11.2 % 0-10 [facility] Work Phone: [phone] Blood platelet mean volumeon 12-26-2021 Platelet mean volume (Bld) [Entitic vol] 10.4 fL 6.2-12.0 [facility] Work Phone: Blood schistocytes detection by light microscopyon 12-26-2021 Schistocytes LM Ql (Bld) 1+ [facility] Work Phone: [phone] Determination of erythrocyte mean corpuscular volume (MCV)on 12-26-2021 MCV (RBC) [Entitic vol] 71.4 fL 81-99 [facility] Work Phone: [phone] Hematocrit Auto (Bld) [Volum e fraction]on 12-26-2021 Hematocrit (Bld) [Volume fraction] 19.7 % 37-47 [facility] Work Phone: [phone] Hypochromatic red blood cell detectionon 12-26-2021 Hypochromia Ql (Bld) 4+ [facility] Work Phone: [phone] Iron measurement (mass/mass) on 12-26-2021 Iron (Unsp spec) [Mass/Mass] 9 ug/dL 50-170 [facility] Work Phone: [phone] Laboratory - Chemistry and C hemistry - challengeon 12-26-2021 CO2 [Moles/Vol] 29.0 mmol/L 21.0-32.0 [facility] Work Phone: [phone] Urea nitrogen/Creatinine [Mass ratio] 25.4 mg/mg 10-20 [facility] Work Phone: [phone] Laboratory - Hematology and Cell countson 12-26-2021 Erythrocyte distribution width (RBC) [Entitic vol] 54.2 fL 35.1-43.9 [facility] Work Phone: [phone] Erythrocyte distribution width (RBC) [Ratio] 21.2 % 11.6-14.6 [facility] Work Phone: [phone] Immature granulocytes/100 WBC (Bld) 0.000 % 0.0-0.9 [facility] Work Phone: [phone] Comment on above: IG% - Immature Granu locytes (promyelocytes, myelocytes and metamyelocytes) > 1% indicates that a LEFT SHIFT is Present. MCH (RBC) [Entitic mass] 19.6 pg 27.0-32.0 [facility] Work Phone: [phone] Nucleated RBC/100 WBC (Bld) [Ratio] 0 % 0-5 [facility] Work Phone: [phone] MCHC Auto (RBC) [Mass/Vol]on 12-26-2021 MCHC (RBC) [Mass/Vol] 27.4 g/dL 32-36 [facility] Work Phone: [phone] Panel Informationon 12-26 Total Iron Binding Capacity 413 ug/dL 250-450 [facility] Work Phone: [phone] Estimated GFR (MDRD) Amer 167 mL/min >60 [facility] Work Phone: [phone] Comment on above: GFR Calc Estimated GFR (MDRD) Non-Af Amer 138 mL/min >60 [facility] Work Phone: [phone] Comment on above: Non- GFR Calc Thyroid Stimulating Hormone (TSH) 3.23 uIU/mL 0.358-3.74 [facility] Work Phone: [phone] Platelets bldon 12-26-2021 Platelets (Bld) [#/Vol] 180 10*3/uL 150-450 [facility] Work Phone: [phone] Review by pathologiston 12-03 Pathologist review Xavier (Unsp spec) [Interp] Cecile looney [facility] Work Phone: [phone] Pathologist review Xavier (Unsp spec) [Interp] Reviewed [facility] Work Phone: [phone] Comment on above: Previous reported re sult: Cecile looney Edited by: RGOOD on 12/27/21:1511Leukopenia and neutropenia. Severe Microcytic anemia.Clinical correlation necessary.Navneet Henriquez M.D. 12/27/21 AMENDED REPORT 12/27/21 1511 PATH REV previously reported as: Cecile looney Serum or plasma calcium cedric urement (mass/volume)on 12-26-2021 Calcium [Mass/Vol] 7.8 mg/dL 8.5-10.1 [facility] Work Phone: [phone] Serum or plasma creatinine m easurement (mass/volume)on 12-26-2021 Creatinine [Mass/Vol] 0.47 mg/dL 0.55-1.02 [facility] Work Phone: [phone] Comment on above: The validity of the calculated GFR & GFRAA in patients over 70 years has not been determined. Clinical correlation is essential. Serum or plasma ferritin pineda surement (mass/volume)on 12-26-2021 Ferritin [Mass/Vol] 4 ng/mL 8 [facility] Work Phone: [phone] Serum or plasma urea nitroge n measurement (mass/volume)on 12-26-2021 Urea nitrogen [Mass/Vol] 12 mg/dL 7-18 [facility] Work Phone: [phone] Thin prep Papanicolaou smear with manual screeningon 12-26-2021 Thin prep Papanicolaou smear with manual screening 2+ [facility] Work Phone: [phone] Thin prep Papanicolaou smear with manual screening 5 5-15 [facility] Work Phone: No Panel Informationon 10-25 Vitamin D 25-Hydroxy 63.1 ng/mL [facility] Work Phone: Comment on above: Vitamin D 25(OH) Sta tus Range Deficiency <20 ng/mL (50nmol/L) Insufficiency 20 - 30 ng/mL (50 - 75 nmol/L) Sufficiency 30 - 100 ng/mL (75 - 250 nmol/L) Toxicity >100 ng/mL (>250 nmol/L) Basophil percentageon 2021 Basophil percentage < 0.6 mg/dL 0.55-1.02 [facility] Work Phone: No Panel Informationon 05-15 Bedside Estimated GFR (eGFR) > 60.0000 mL/min >60 [facility] Work Phone: Bacteria identified Anaer cx Nom (Unsp spec)on 04-30-2021 Anaerobic microbial culture No anaerobic bacteria isolated. [facility] Work Phone: Bacteria identified Cx Nom ( Wound)on 04-30-2021 Wound Culture Staphylococcus warneri [facility] Work Phone: Gram stain for investigation of transfusion reactionon 04-30-2021 Microscopic observation Gram stain Nom (Unsp spec) [facility] Work Phone: [id number]/[id number] FACS Ass ay, BldOrdered By: Gi Frances on 10-09-2020 NMO/AQP4 FACS Negative Negative [facility] Comment on above: Recommend repeat gilmar ting in 6 months if clinical suspicion is high. Negative result can occur in the setting of immunosuppression. ADDITIONAL INFORMATION This test was developed and its performance characteristics determined by [facility] in a manner consistent with CLIA requirements. This test has not been cleared or approved by the U.S. Food and Drug Administration. Test Performed by: [facility] - [address] [address] All Source Collection Manager: Ric Lantigua M.D. Ph.D.; CLIA# [id number] [facility] MOG FACS,SOrdered By: Aileen Frances on 10-08-2020 MOG FACS, S Negative Negative [facility] Comment on above: No informative autoa ntibodies were detected in this evaluation. A negative result does not preclude a diagnosis of an inflammatory MAJOR GIFTS DIRECTOR demyelinating disorder. ADDITIONAL INFORMATION This test was developed and its performance characteristics determined by [facility] in a manner consistent with CLIA requirements. This test has not been cleared or approved by the U.S. Food and Drug Administration. Test Performed by: [facility] [place] [address] All Source Collection Manager: Ric Lantigua M.D. Ph.D.; CLIA# [id number] [facility] Comprehensive metabolic 2000 panelOrdered By: Gi Frances on 10-04-2020 Albumin [Mass/Vol] 3.9 g/dL 3.2 - 5.2 g/dL [facility] ALP [Catalytic activity/Vol] 50 U/L 40 - 150 U/L [facility] ALT [Catalytic activity/Vol] 11 U/L 0 - 40 U/L [facility] Anion gap [Moles/Vol] 12 mmol/L 10 - 2 0 mmol/L [facility] AST [Catalytic activity/Vol] 17 U/L 0 - 45 U/L [facility] Bilirubin [Mass/Vol] mg/dL 0.0 - 1 .3 mg/dL [facility] Calcium [Mass/Vol] 9.2 mg/dL 8.4 - 10. 2 mg/dL [facility] Chloride [Moles/Vol] 101 mmol/L 98 - 10 8 mmol/L [facility] Creatinine [Mass/Vol] 0.42 mg/dL Low 0.60 - 1.20 [facility] GFR/1.73 sq M.predicted CKD-EPI (S/P/Bld) [Vol rate/Area] 105 >=60 mL/min/1.73 m2 [facility] Glucose [Mass/Vol] 92 mg/dL 65 - 99 mg/dL [facility] HCO3 [Moles/Vol] 30 mmol/L 21 - 32 mmol/L [facility] Interpretation and review of laboratory results Abnormal [facility] Potassium [Moles/Vol] 4.4 mmol/L 3.5 - 5.1 mmol/L [facility] Protein [Mass/Vol] 6.0 g/dL 6.0 - 8.0 g/dL [facility] Sodium [Moles/Vol] 139 mmol/L 135 - 145 mmol/L [facility] Urea nitrogen [Mass/Vol] 9 mg/dL 8 - 25 mg/dL [facility] Urea nitrogen/Creatinine [Mass ratio] 21.4 mg/mg High [facility] The eGFR should be used for monitoring renal function only and not for medication dosing. [facility] MR CERVICAL SPINE WITH AND W ITHOUT [...] narrowing at multiple levels as described above. [employer] Workstation ID: [id number] Dictated by: PADMINI US on ThuOct 04, 2020 9:23:23 PM EDT Transcribed by: KAY THOMPSON on ThuOct 04, 2020 10:02:37 PM EDT Finalized by: PADMINI US on ThuOct 05, 2020 7:06:01 AM EDT Normal [facility] Comment on above: Order Comment: Must [...] disease. No spinal stenosis. No compression fractures. [employer] Workstation ID: [id number] Dictated by: PADMINI US on ThuOct 04, 2020 9:28:23 PM EDT Transcribed by: CHRISTOPHE RENDON on ThuOct 04, 2020 10:00:36 PM EDT Finalized by: PADMINI US on ThuOct 05, 2020 7:05:53 AM EDT Normal [facility] Comment on above: Order Comment: Injur y/Trauma or Illness?:Illness/Other How long have you had these symptoms (acute/chronic)?:Unknown Reason for exam?:Radiographic monitoring of thoracic transverse myelitis Type of Exam?:Unknown Additional signs and symptoms?:Radiographic monitoring of thoracic transverse myelitis No Panel InformationOrdered By: Gi Frances on 10-04-2020 Interpretation and review of laboratory results Normal [facility] TSH DL <= 0.005 mIU/L QnOrde red By: Gi Frances on 10-04-2020 TSH Qn 2.00 m[IU]/L [facility] VITAMIN D, TOTAL, 25-OHOrder ed By: Gi Frances on 10-04-2020 25-hydroxyvitamin D [Mass/Vol] 48 ng/mL 30 - 100 ng/mL [facility] Comment on above: Vitamin D status: Deficiency: <10 ng/mL Insufficiency: 10-30 ng/mL Sufficiency: 30-100 ng/mL Toxicity: >100 ng/mL Interpretation and review of laboratory results Normal [facility] Assay performed usin g [employer] CLIA methodology. [facility] Vitamin [id number] By: Gaurang Frances on 10-04-2020 Cobalamin (Vitamin B12) [Mass/Vol] 558 pg/mL 232 - 1245 pg/mL [facility] CT COMPARISON IMPORTOrdered By: Provider System on 09-10-2020 This order has been auto-finalized and does not contain a result. [facility] MR COMPARISON IMPORTOrdered By: Provider System on 09-10-2020 This order has been auto-finalized and does not contain a result. [facility] XR COMPARISON IMPORTOrdered By: Provider System on 09-10-2020 This order has been auto-finalized and does not contain a result. [facility] Lower GI hemoglobin IA Ql (S tl) Stool Occult Blood (JULIA) Positive [facility] Work Phone: Vital Signs Date Time Vital Sign Value Performing Clinician Facility 01-16-2025 11:26-0400 Diastolic blood pressure 89 mm[Hg] Dr. Casie Trevizo MD Work Phone: [facility] 01-16-2025 11:26-0400 Systolic blood pressure 102 mm[Hg] Dr. Casie Trevizo MD Work Phone: [facility] 01-16-2025 11:04-0400 Body height 154.[address] Casie Trevizo MD Work Phone: [facility] 01-16-2025 11:04-0400 Body mass index (BMI) [Ratio] 17.9 kg/m2 Dr. Casie Trevizo MD Work Phone: [facility] 01-16-2025 11:04-0400 Body temperature 97.2 [degF] Dr. Casie Trevizo MD Work Phone: [facility] 01-16-2025 11:04-0400 Body weight 43.[address] Casie Trevizo MD Work Phone: [facility] 01-16-2025 11:04-0400 Heart rate 64 /min Dr. Casie Trevizo MD Work Phone: [phone] [place] [address] 01-16-2025 11:04-0400 Respiratory rate 16 /min Dr. Casie Trevizo MD Work Phone: [phone])329-130327 [place] [address] 01-16-2025 11:04-0400 SaO2% (BldA) [Mass fraction] 100 % Dr. Casie Trevizo MD Work Phone: [phone])277-452527 [place] [address] 10-12-2024 10:53-0400 Body mass index (BMI) [Ratio] 16.9 kg/m2 Dr. Casie Trevizo MD Work Phone: 5(720)086-754927 [place] [address] 10-12-2024 10:53-0400 Body temperature 97.6 [degF] Dr. Casie Trevizo MD Work Phone: 0(498)680-456827 [place] [address] 10-12-2024 10:53-0400 Diastolic blood pressure 86 mm[Hg] Dr. Casie Trevizo MD Work Phone: 7(945)267-774427 [place] [address] 10-12-2024 10:53-0400 Heart rate 74 /min Dr. Casie Trevizo MD Work Phone: 3(567)871-349927 [place] [address] 10-12-2024 10:53-0400 Respiratory rate 18 /min Dr. Casie Trevizo MD Work Phone: 8(578)150-798427 [place] [address] 10-12-2024 10:53-0400 Systolic blood pressure 133 mm[Hg] Dr. Casie Trevizo MD Work Phone: 7(884)610-180127 [place] [address] 10-02-2024 00:38-0400 Body weight 40.[address] Casie Trevizo MD Work Phone: 1(405)393-610527 [place] [address] 09-28-2024 11:01-0400 Body mass index (BMI) [Ratio] 16.9 kg/m2 Dr. Casie Trevizo MD Work Phone: 8(570)195-624327 [place] [address] 09-28-2024 11:01-0400 Body temperature 97.4 [degF] Dr. Casie Trevizo MD Work Phone: 6(867)541-917927 [place] [address] 09-28-2024 11:01-0400 Diastolic blood pressure 65 mm[Hg] Dr. Casie Trevizo MD Work Phone: [facility] 09-28-2024 11:01-0400 Heart rate 61 /min Dr. Casie Trevizo MD Work Phone: [facility] 09-28-2024 11:01-0400 Respiratory rate 18 /min Dr. Casie Trevizo MD Work Phone: 2(882)936-702255 [place] [address] 09-28-2024 11:01-0400 Systolic blood pressure 113 mm[Hg] Dr. Casie Trevizo MD Work Phone: 9(383)847-705355 [place] [address] 09-01-2024 00:36-0400 Body weight 40.[address] Casie Trevizo MD Work Phone: 2([phone])593-199827 [place] [address] 08-31-2024 10:34-0400 Body mass index (BMI) [Ratio] 16.9 kg/m2 Dr. Casie Trevizo MD Work Phone: 8(288)441-916427 [place] [address] 08-31-2024 10:34-0400 Body temperature 97.8 [degF] Dr. Casie Trevizo MD Work Phone: 9(771)953-810049 [address] 08-31-2024 10:34-0400 Diastolic blood pressure 73 mm[Hg] Dr. Casie Trevizo MD Work Phone: 9(540)278-843255 [place] [address] 08-31-2024 10:34-0400 Heart rate 65 /min Dr. Casie Trevizo MD Work Phone: 9(298)149-173955 [place] [address] 08-31-2024 10:34-0400 Respiratory rate 18 /min Dr. Casie Trevizo MD Work Phone: 9(429)406-866755 [place] [address] 08-31-2024 10:34-0400 Systolic blood pressure 133 mm[Hg] Dr. Casie Trevizo MD Work Phone: 9(570)396-007855 [place] [address] 08-02-2024 00:45-0400 Body weight 40.[address] Casie Trevizo MD Work Phone: 1(037)549-494949 [address] 07-27-2024 08:25-0400 Body mass index (BMI) [Ratio] 16.9 kg/m2 Dr. Casie Trevizo MD Work Phone: [facility] 07-27-2024 08:25-0400 Body temperature 97.6 [degF] Dr. Casie Trevizo MD Work Phone: [facility] 07-27-2024 08:25-0400 Diastolic blood pressure 76 mm[Hg] Dr. Casie Trevizo MD Work Phone: 6(764)728-401249 [address] 07-27-2024 08:25-0400 Heart rate 74 /min Dr. Casie Trevizo MD Work Phone: 1(269)238-595155 [place] [address] 07-27-2024 08:25-0400 Respiratory rate 16 /min Dr. Casie Trevizo MD Work Phone: 1(902)107-180449 [address] 07-27-2024 08:25-0400 Systolic blood pressure 149 mm[Hg] Dr. Casie Trevizo MD Work Phone: 3(068)004-144755 [place] [address] 07-05-2024 14:34-0500 Body height 154.[address] Casie Trevizo MD Work Phone: [facility] 07-05-2024 14:34-0500 Body temperature 98.6 [degF] Dr. Casie Trevizo MD Work Phone: [facility] 07-05-2024 14:34-0500 Diastolic blood pressure 72 mm[Hg] Dr. Casie Trevizo MD Work Phone: 1(895)438-902155 [place] [address] 07-05-2024 14:34-0500 Heart rate 77 /min Dr. Casie Trevizo MD Work Phone: [facility] 07-05-2024 14:34-0500 Respiratory rate 16 /min Dr. Casie Trevizo MD Work Phone: [facility] 07-05-2024 14:34-0500 SaO2% (BldA) [Mass fraction] 94 % Dr. Casie Trevizo MD Work Phone: [facility] 07-05-2024 14:34-0500 Systolic blood pressure 127 mm[Hg] Dr. Casie Trevizo MD Work Phone: [facility] 07-02-2024 01:12-0500 Body weight 40.[address] Casie Trevizo MD Work Phone: 1(382)758-707249 [address] 06-29-2024 08:23-0500 Body mass index (BMI) [Ratio] 16.9 kg/m2 Dr. Casie Trevizo MD Work Phone: 1(073)385-257127 [place] [address] 06-29-2024 08:23-0500 Body temperature 98.1 [degF] Dr. Casie Trevizo MD Work Phone: 6(809)007-697327 [place] [address] 06-29-2024 08:23-0500 Diastolic blood pressure 78 mm[Hg] Dr. Casie Trevizo MD Work Phone: 3(217)574-509727 [place] [address] 06-29-2024 08:23-0500 Heart rate 93 /min Dr. Casie Trevizo MD Work Phone: 7(486)070-895927 [place] [address] 06-29-2024 08:23-0500 Respiratory rate 20 /min Dr. Casie Trevizo MD Work Phone: 9(894)750-957527 [place] [address] 06-29-2024 08:23-0500 Systolic blood pressure 123 mm[Hg] Dr. Casie Trevizo MD Work Phone: 3(769)413-183049 [address] 06-04-2024 01:56-0500 Body weight 40.[address] Casie Trevizo MD Work Phone: 7(686)322-183149 [address] 11-16-2023 13:30-0400 Body weight 42.[address] Casie Trevizo MD Work Phone: 8(810)553-080449 [address] 05-11-2023 11:05-0500 Diastolic blood pressure 64 mm[Hg] Dr. Casie Trevizo Work Phone: 4(201)106-616127 [place] [address] 05-11-2023 11:05-0500 Systolic blood pressure 138 mm[Hg] Dr. Casie Trevizo Work Phone: 9(492)312-121149 [address] 05-11-2023 10:34-0500 Body height 154.[address] Casie Trevizo Work Phone: [facility] 05-11-2023 10:34-0500 Body mass index (BMI) [Ratio] 17.7 kg/m2 Dr. Casie Trevizo Work Phone: [facility] 05-11-2023 10:34-0500 Body temperature 97.1 [degF] Dr. Casie Trevizo Work Phone: [facility] 05-11-2023 10:34-0500 Body weight 42.[address] Casie Trevizo Work Phone: [facility] 05-11-2023 10:34-0500 Heart rate 67 /min Dr. Casie Trevizo Work Phone: [facility] 05-11-2023 10:34-0500 Respiratory rate 16 /min Dr. Casie Trevizo Work Phone: [facility] 05-11-2023 10:34-0500 SaO2% (BldA) [Mass fraction] 98 % Dr. Casie Trevizo Work Phone: [facility] 03-23-2023 10:13-0500 Body temperature 97.8 [degF] Dr. Casie Trevizo Work Phone: [facility] 03-23-2023 10:13-0500 Diastolic blood pressure 64 mm[Hg] Dr. Casie Trevizo Work Phone: [facility] 03-23-2023 10:13-0500 Heart rate 60 /min Dr. Casie Trevizo Work Phone: [facility] 03-23-2023 10:13-0500 Respiratory rate 16 /min Dr. Casie Trevizo Work Phone: [facility] 03-23-2023 10:13-0500 SaO2% (BldA) [Mass fraction] 100 % Dr. Casie Trevizo Work Phone: [facility] 03-23-2023 10:13-0500 Systolic blood pressure 131 mm[Hg] Dr. Casie Trevizo Work Phone: [facility] 03-23-2023 08:58-0500 Body mass index (BMI) [Ratio] 18 kg/m2 Dr. Casie Trevizo Work Phone: [facility] 03-23-2023 08:58-0500 Body weight 43.[address] Casie Trevizo Work Phone: [facility] 11-17-2022 14:21-0400 Diastolic blood pressure 75 mm[Hg] Dr. Casie Trevizo Work Phone: [facility] 11-17-2022 14:21-0400 Heart rate 63 /min Dr. Casie Trevizo Work Phone: [facility] 11-17-2022 14:21-0400 Systolic blood pressure 145 mm[Hg] Dr. Casie Trevizo Work Phone: [facility] 11-17-2022 13:33-0400 Body mass index (BMI) [Ratio] 18.2 kg/m2 Dr. Casie Trevizo Work Phone: [facility] 11-17-2022 13:33-0400 Body temperature 96.9 [degF] Dr. Casie Trevizo Work Phone: [facility] 11-17-2022 13:33-0400 Respiratory rate 16 /min Dr. Casie Trevizo Work Phone: [facility] 11-17-2022 13:33-0400 SaO2% (BldA) [Mass fraction] 100 % Dr. Casie Trevizo Work Phone: [facility] 05-06-2022 10:33-0500 Body height 154.[address] Cara Arce Work Phone: [facility] 05-06-2022 10:33-0500 Body mass index (BMI) [Ratio] 18.2 kg/m2 Dr. Cara Arce Work Phone: [facility] 05-06-2022 10:33-0500 Body temperature 97.4 [degF] Dr. Cara Arce Work Phone: 8(401)681-601291 [place] [address] 05-06-2022 10:33-0500 Body weight 43.[address] Cara Arce Work Phone: 0(423)880-008291 [place] [address] 05-06-2022 10:33-0500 Diastolic blood pressure 64 mm[Hg] Dr. Cara Arce Work Phone: 4(728)795-592091 [place] [address] 05-06-2022 10:33-0500 Heart rate 65 /min Dr. Cara Arce Work Phone: 7(765)659-671391 [place] [address] 05-06-2022 10:33-0500 Respiratory rate 16 /min Dr. Cara Arce Work Phone: 3(163)233-952691 [place] [address] 05-06-2022 10:33-0500 SaO2% (BldA) [Mass fraction] 96 % Dr. Cara Arce Work Phone: 3(033)612-077191 [place] [address] 05-06-2022 10:33-0500 Systolic blood pressure 110 mm[Hg] Dr. Cara Arce Work Phone: 4(980)006-153491 [place] [address] 03-06-2022 09:32-0400 Body temperature 97.6 [degF] Dr. Cara Arce Work Phone: 5(659)236-030591 [place] [address] 03-06-2022 09:32-0400 Diastolic blood pressure 81 mm[Hg] Dr. Cara Arce Work Phone: 7(403)174-296491 [place] [address] 03-06-2022 09:32-0400 Heart rate 77 /min Dr. Cara Arce Work Phone: 4(849)309-139391 [place] [address] 03-06-2022 09:32-0400 Respiratory rate 16 /min Dr. Cara Arce Work Phone: 0(742)529-474791 [place] [address] 03-06-2022 09:32-0400 SaO2% (BldA) [Mass fraction] 100 % Dr. Cara Arce Work Phone: 9(496)519-699591 [place] [address] 03-06-2022 09:32-0400 Systolic blood pressure 128 mm[Hg] Dr. Cara Arce Work Phone: 3(341)184-391791 [place] [address] 03-06-2022 07:48-0400 Body height 154.[address] Cara Arce Work Phone: 7(843)660-619491 [place] [address] Work Phone: 03-06-2022 07:48-0400 Body mass index (BMI) [Ratio] 17.9 kg/m2 Dr. Cara rAce Work Phone: 9(269)721-567470 [address] 03-06-2022 07:48-0400 Body weight 43.[address] Cara Arce Work Phone: 8(237)128-150091 [place] [address] 02-19-2022 11:01-0400 Body height 154.[address] Cara Arce Work Phone: 8(691)340-677470 [address] Work Phone: 02-06-2022 11:29-0400 Body mass index (BMI) [Ratio] 18.5 kg/m2 Dr. Cara Arce Work Phone: 7(415)309-359391 [place] [address] 02-06-2022 11:29-0400 Body temperature 97.7 [degF] Dr. Cara Arce Work Phone: 2(286)437-347691 [place] [address] 02-06-2022 11:29-0400 Body weight 44.[address] Cara Arce Work Phone: 7(136)006-664591 [place] [address] 02-06-2022 11:29-0400 Diastolic blood pressure 74 mm[Hg] Dr. Cara Arce Work Phone: 2(071)970-294991 [place] [address] 02-06-2022 11:29-0400 Heart rate 66 /min Dr. Cara Arce Work Phone: 9(790)138-562291 [place] [address] 02-06-2022 11:29-0400 Respiratory rate 16 /min Dr. Cara Arce Work Phone: 1(882)918-884991 [place] [address] 02-06-2022 11:29-0400 SaO2% (BldA) [Mass fraction] 95 % Dr. Cara Arce Work Phone: 4(050)688-208791 [place] [address] 02-06-2022 11:29-0400 Systolic blood pressure 147 mm[Hg] Dr. Cara Arce Work Phone: 4(675)179-958491 [place] [address] 01-09-2022 15:01-0400 Body mass index (BMI) [Ratio] 18.2 kg/m2 Dr. Cara Arce Work Phone: 2(318)089-617248 [place] [address] Work Phone: 01-09-2022 15:01-0400 Body temperature 97.8 [degF] Dr. Cara Arce Work Phone: [facility] Work Phone: 01-09-2022 15:01-0400 Body weight 43.[address] Cara Arce Work Phone: [facility] Work Phone: 01-09-2022 15:01-0400 Diastolic blood pressure 64 mm[Hg] Dr. Cara Arce Work Phone: [facility] Work Phone: 01-09-2022 15:01-0400 Heart rate 68 /min Dr. Cara Arce Work Phone: [facility] Work Phone: 01-09-2022 15:01-0400 Respiratory rate 15 /min Dr. Cara Arce Work Phone: [facility] Work Phone: 01-09-2022 15:01-0400 SaO2% (BldA) [Mass fraction] 98 % Dr. Cara Arce Work Phone: [facility] Work Phone: 01-09-2022 15:01-0400 Systolic blood pressure 123 mm[Hg] Dr. Cara Arce Work Phone: [facility] Work Phone: 12-27-2021 09:14-0400 Body height 154.[address] Cara Arce Work Phone: [facility] Work Phone: 12-26-2021 19:41-0400 Body temperature 98.2 [degF] [facility] Work Phone: 12-26-2021 19:41-0400 Diastolic blood pressure 84 mm[Hg] [facility] Work Phone: 12-26-2021 19:41-0400 Heart rate 73 /min [facility] Work Phone: 12-26-2021 19:41-0400 Respiratory rate 18 /min [facility] Work Phone: 12-26-2021 19:41-0400 SaO2% (BldA) [Mass fraction] 98 % [facility] Work Phone: 12-26-2021 19:41-0400 Systolic blood pressure 160 mm[Hg] [facility] Work Phone: 12-26-2021 11:34-0400 Body height 154.94 cm [facility] Work Phone: 12-26-2021 11:34-0400 Body mass index (BMI) [Ratio] 17.7 kg/m2 [facility] Work Phone: 12-26-2021 11:34-0400 Body weight 42.63 kg [facility] Work Phone: 12-10-2021 10:23-0400 Body mass index (BMI) [Ratio] 20 kg/m2 [facility] Work Phone: 12-10-2021 10:23-0400 Body temperature 96.8 [degF] [facility] Work Phone: 12-10-2021 10:23-0400 Body weight 46.66 kg [facility] Work Phone: 12-10-2021 10:23-0400 Diastolic blood pressure 57 mm[Hg] [facility] Work Phone: 12-10-2021 10:23-0400 Heart rate 71 /min [facility] Work Phone: 12-10-2021 10:23-0400 Respiratory rate 20 /min [facility] Work Phone: 12-10-2021 10:23-0400 Systolic blood pressure 123 mm[Hg] [facility] Work Phone: 09-17-2021 11:03-0400 Body mass index (BMI) [Ratio] 21.2 kg/m2 [facility] Work Phone: 09-17-2021 11:03-0400 Body temperature 97.4 [degF] [facility] Work Phone: 09-17-2021 11:03-0400 Diastolic blood pressure 51 mm[Hg] [facility] Work Phone: 09-17-2021 11:03-0400 Heart rate 65 /min [facility] Work Phone: 09-17-2021 11:03-0400 Respiratory rate 18 /min [facility] Work Phone: 09-17-2021 11:03-0400 Systolic blood pressure 134 mm[Hg] [facility] Work Phone: 09-01-2021 00:29-0400 Body weight 54.43 kg [facility] Work Phone: 08-27-2021 11:35-0400 Body mass index (BMI) [Ratio] 21.2 kg/m2 [facility] Work Phone: 08-27-2021 11:35-0400 Body temperature 97.5 [degF] [facility] Work Phone: 08-27-2021 11:35-0400 Diastolic blood pressure 71 mm[Hg] [facility] Work Phone: 08-27-2021 11:35-0400 Heart rate 74 /min [facility] Work Phone: 08-27-2021 11:35-0400 Respiratory rate 18 /min [facility] Work Phone: 08-27-2021 11:35-0400 Systolic blood pressure 128 mm[Hg] [facility] Work Phone: 08-02-2021 00:30-0400 Body weight 54.43 kg [facility] Work Phone: 07-30-2021 11:14-0400 Body mass index (BMI) [Ratio] 21.2 kg/m2 [facility] Work Phone: 07-30-2021 11:14-0400 Body temperature 97.5 [degF] [facility] Work Phone: 07-30-2021 11:14-0400 Diastolic blood pressure 63 mm[Hg] [facility] Work Phone: 07-30-2021 11:14-0400 Heart rate 72 /min [facility] Work Phone: 07-30-2021 11:14-0400 Respiratory rate 18 /min [facility] Work Phone: 07-30-2021 11:14-0400 Systolic blood pressure 122 mm[Hg] [facility] Work Phone: 07-02-2021 00:28-0500 Body weight 54.43 kg [facility] Work Phone: 07-01-2021 23:28-0500 Body weight 54.43 kg [facility] Work Phone: 06-25-2021 10:24-0500 Body mass index (BMI) [Ratio] 21.2 kg/m2 [facility] Work Phone: 06-25-2021 10:24-0500 Body temperature 97.6 [degF] [facility] Work Phone: 06-25-2021 10:24-0500 Diastolic blood pressure 54 mm[Hg] [facility] Work Phone: 06-25-2021 10:24-0500 Heart rate 70 /min [facility] Work Phone: 06-25-2021 10:24-0500 Respiratory rate 20 /min [facility] Work Phone: 06-25-2021 10:24-0500 Systolic blood pressure 121 mm[Hg] [facility] Work Phone: 06-24-2021 13:42-0500 Body temperature 98 [degF] [facility] Work Phone: 06-24-2021 13:42-0500 Diastolic blood pressure 58 mm[Hg] [facility] Work Phone: 06-24-2021 13:42-0500 Heart rate 56 /min [facility] Work Phone: 06-24-2021 13:42-0500 Respiratory rate 16 /min [facility] Work Phone: 06-24-2021 13:42-0500 SaO2% (BldA) [Mass fraction] 99 % [facility] Work Phone: 06-24-2021 13:42-0500 Systolic blood pressure 114 mm[Hg] [facility] Work Phone: 06-24-2021 10:17-0500 Body height 152.4 cm [facility] Work Phone: 06-24-2021 10:17-0500 Body mass index (BMI) [Ratio] 20.2 kg/m2 [facility] Work Phone: 06-24-2021 10:17-0500 Body weight 47.17 kg [facility] Work Phone: 06-03-2021 23:33-0500 Body weight 54.43 kg [facility] Work Phone: 05-28-2021 10:08-0500 Body mass index (BMI) [Ratio] 21.2 kg/m2 [facility] Work Phone: 05-28-2021 10:08-0500 Body temperature 97.5 [degF] [facility] Work Phone: 05-28-2021 10:08-0500 Diastolic blood pressure 54 mm[Hg] [facility] Work Phone: 05-28-2021 10:08-0500 Heart rate 64 /min [facility] Work Phone: 05-28-2021 10:08-0500 Respiratory rate 16 /min [facility] Work Phone: 05-28-2021 10:08-0500 Systolic blood pressure 90 mm[Hg] [facility] Work Phone: 05-03-2021 23:26-0500 Body weight 54.43 kg [facility] Work Phone: 04-30-2021 10:00-0500 Body mass index (BMI) [Ratio] 21.2 kg/m2 [facility] Work Phone: 04-30-2021 10:00-0500 Body temperature 97.3 [degF] [facility] Work Phone: 04-30-2021 10:00-0500 Diastolic blood pressure 40 mm[Hg] [facility] Work Phone: 04-30-2021 10:00-0500 Heart rate 64 /min [facility] Work Phone: 04-30-2021 10:00-0500 Respiratory rate 16 /min [facility] Work Phone: 04-30-2021 10:00-0500 Systolic blood pressure 134 mm[Hg] [facility] Work Phone: 04-02-2021 23:27-0500 Body weight 54.43 kg [facility] Work Phone: 10-04-2020 13:15-0400 Body height 160 cm [facility] 10-04-2020 13:15-0400 Body mass index (BMI) [Ratio] 19.54 kg/m2 [facility] 10-04-2020 13:15-0400 Body weight 50.03 kg [facility] 10-04-2020 13:15-0400 Diastolic blood pressure 69 mm[Hg] [facility] 10-04-2020 13:15-0400 Heart rate 69 /min [facility] 10-04-2020 13:15-0400 Systolic blood pressure 147 mm[Hg] [facility] 09-10-2020 11:02-0400 Body height 160 cm [facility] 09-10-2020 11:02-0400 Body mass index (BMI) [Ratio] 19.89 kg/m2 [facility] 09-10-2020 11:02-0400 Body weight 50.94 kg [facility] 09-10-2020 11:02-0400 Diastolic blood pressure 74 mm[Hg] [facility] 09-10-2020 11:02-0400 Heart rate 62 /min [facility] 09-10-2020 11:02-0400 Systolic blood pressure 129 mm[Hg] [facility] 03-16-2020 14:10-0500 Body Temperature 97.1 [degF] Maryanne Valencia [facility] [[email or web address] Internal Medicine Work Phone: Comment on above: Method: Infrared aprox weight 03-16-2020 14:10-0500 Body weight 63.5 kg Maryannesusana Valencia [facility] [[email or web address] Internal Medicine Work Phone: Comment on above: aprox weight 03-16-2020 14:10-0500 BP Diastolic 80 mm[Hg] [facility] Work Phone: Comment on above: Patient Position: Sitting; Cuff Location : Left Arm; Cuff Size: Standard aprox weight 03-16-2020 14:10-0500 BP Systolic 122 mm[Hg] [facility] Work Phone: Comment on above: Patient Position: Sitting; Cuff Location : Left Arm; Cuff Size: Standard aprox weight 03-16-2020 14:10-0500 Pulse (Heart Rate) 66 /min Maryannesusana Valencia [facility] [[email or web address] Internal Medicine Work Phone: Comment on above: Pattern: Regular aprox weight 03-16-2020 14:10-0500 Pulse Oximetry 98 % Maryannephilip Valencia [facility] [[email or web address] Internal Medicine Work Phone: Comment on above: Room air aprox weight 03-16-2020 14:10-0500 Respiratory Rate 16 /min [facility] Work Phone: Comment on above: Pattern: Unlabored aprox weight Encounters Encounter Date Encounter Type Care Provider Facility Start: 01-16-2025 End: 01-16-2025 Admission to same day surgery center Dr. Star Corona MD [facility] Start: 01-16-2025 End: 01-16-[address] Casie Trevizo MD Work Phone: [facility] Start: 12-27-2024 End: 12-27-[address] Casie Trevizo MD Work Phone: -[facility] [place] Start: 12-27-2024 End: 12-27-[address] Ye Hoffman MD -[facility] [place] Work Phone: Start: 12-27-2024 End: 12-27-2024 ambulatory Ye Hoffman Facility:[facility] Start: 11-11-2024 ambulatory Casie Trevizo Facility: [facility] Start: 10-12-2024 Non-patient / Non-visit Evelyn Robertson [facility] -[facility] Start: 10-12-2024 End: 10-31-[address] Casie Trevizo MD Work Phone: [facility] Start: 10-12-2024 End: 10-31-2024 Discharged Recurring Evelyn Robertson [facility] Work Phone: Start: 10-05-2024 Non-patient / Non-visit Evelyn Robertson [facility] -[facility] Start: 09-28-2024 Non-patient / Non-visit Evelyn Robertson [facility] -[facility] Start: 09-28-2024 Evelyn Robertson [facility] -A [facility] Start: 09-28-2024 End: 10-01-[address] Casie Trevizo MD Work Phone: [facility] Work Phone: Start: 09-28-2024 End: 10-01-2024 Discharged Recurring Evelyn Robertson [facility] Work Phone: Start: 09-28-2024 End: 10-01-2024 Evelyn Robertson [facility] Work Phone: Start: 09-21-2024 Non-patient / Non-visit Evelyn Robertson [facility] -[facility] Start: 09-21-2024 Evelyn Robertson [facility] -A [facility] Start: 09-14-2024 Non-patient / Non-visit Evelyn Robertson [facility] -[facility] Start: 09-14-2024 Evelyn Robertson [facility] -[facility] Start: 09-07-2024 Non-patient / Non-visit Evelyn Robertson [facility] -[facility] Start: 09-07-2024 Evelyn Robertson [facility] -A [facility] Start: 08-31-2024 Non-patient / Non-visit Evelyn Robertson [facility] -[facility] Start: 08-31-2024 Evelyn Robertson [facility] -A [facility] Start: 08-31-2024 End: 08-31-[address] [facility] Facility:[facility] Start: 08-31-2024 End: 08-31-2024 Discharged Recurring Evelyn Robertson [facility] -[facility] Work Phone: Start: 08-31-2024 End: 08-31-2024 Evelyn Robertson [facility] Work Phone: Start: 08-24-2024 Non-patient / Non-visit Evelyn Robertson [facility] -[facility] Start: 08-24-2024 Evelyn Robertson [facility] -A HF [facility] Start: 08-17-2024 Non-patient / Non-visit Evelyn Robertson [facility] -[facility] Start: 08-17-2024 Evelyn Robertson [facility] -A [facility] Start: 08-10-2024 Non-patient / Non-visit Evelyn Robertson [facility] -[facility] Start: 08-10-2024 Evelynasim Robertson [facility] -A [facility] Start: 08-03-2024 Non-patient / Non-visit Evelyn Robertson [facility] -[facility] Start: 08-03-2024 Evelyn Marcelo [facility] -A [facility] Start: 07-27-2024 Non-patient / Non-visit Evelyn Robertson [facility] -[facility] Start: 07-27-2024 Evelyn Robertson [facility] -A [facility] Start: 07-27-2024 End: 08-01-2024 ambulatory Casie S Jolliff Facility:[facility] Start: 07-27-2024 End: 08-01-2024 Discharged Recurring Evelyn Robertson [facility] -[facility] Work Phone: Start: 07-27-2024 End: 08-01-2024 Evelynasim BearRobertson [facility] Work Phone: Start: 07-21-2024 ambulatory [facility]ie S Jolliff [facility] [facility] Start: 07-21-2024 Registered Referred Sukumar CalderónGasper Winkler Start: 07-21-2024 Sukumar Calderón Gasper Winkler Start: 07-20-2024 End: 07-20-2024 ambulatory Casie S Jolliff Facility:[facility] Start: 07-20-2024 End: 07-20-2024 Patient encounter procedure Ally Duron DECKHAND OYSTER DREDGE-C -[facility] Work Phone: Start: 07-20-2024 End: 07-20-2024 Ally Duron DECKHAND OYSTER DREDGE-C -[facility] Work Phone: Start: 07-18-2024 ambulatory Aiden Bartholomew Facility:[facility] Start: 07-18-2024 Non-patient / Non-visit Dr. Aiden Bartholomew MD -[facility] Start: 07-18-2024 Dr. Aiden Bartholomew MD -[facility] Start: 07-14-2024 ambulatory Casie S Jolliff Facility: [facility] Start: 07-14-2024 Registered Referred Sukumar Winkler Start: 07-14-2024 Sukumar Calderón Gasper Winkler Start: 07-13-2024 Non-patient / Non-visit Evelyn Robertson DECKHAND OYSTER DREDGE-C -[facility] Start: 07-13-2024 Evelyn Robertson DECKHAND OYSTER DREDGE-C -[facility] Start: 07-12-2024 End: 07-12-[address] Casie Trevizo MD -Outpatient Bone Densitometry Work Phone: Start: 07-12-2024 End: 07-12-2024 Dr. Casie Trevizo MD -Outpatient Bone Densitometry Work Phone: Start: 07-12-2024 End: 07-12-2024 ambulatory Casie Trevizo Facility:[facility] Start: 07-07-2024 ambulatory Casie Trevizo Facility: [facility] Start: 07-07-2024 Registered Referred Sukumar Velazquez MD [facility] Start: 07-07-2024 Sukumar Velazquez MD [facility] Gasper Peterson Start: 07-06-2024 Non-patient / Non-visit Dr. Juan Carlos Barrow MD -[facility] Start: 07-06-2024 Dr. Juan Carlos Barrow MD -[facility] Start: 07-05-[address] Blanca Orlando MD -[facility] Start: 07-05-2024 End: 07-05-[address] Fransisca Orlando MD -[facility] Work Phone: Start: 07-05-2024 End: 07-05-2024 Dr. Fransisca Orlando MD -[facility] Work Phone: Start: 07-05-2024 End: 07-05-2024 ambulatory Casie Trevizo Facility:[facility] Start: 06-30-2024 ambulatory Casie Trevizo Facility: [facility] Start: 06-30-2024 Sukumar Velazquez MD [facility] L Peterson Start: 06-29-2024 Evelyn Robertson DECKHAND OYSTER DREDGE-C -[facility] Start: 06-29-2024 End: 07-01-2024 ambulatory Evelny Robertson NP Facility:[facility] Start: 06-29-2024 End: 07-01-2024 Evelyn Robertson [facility] Work Phone: Start: 06-23-2024 ambulatory Casie S Jolliff Facility: [facility] Start: 06-23-2024 Sukumar Calderón L - [place] Start: 06-22-2024 Evelyn Robertson NP-C -[facility] Start: 06-16-2024 ambulatory Efewongbe Veee OLS Fa cility:[facility] Start: 06-16-2024 Sukumar Calderón L [place] Start: 06-15-2024 ambulatory Casie S Jolliff Facility: [facility] Start: 06-15-2024 Brooke COLLINS -[facility] Start: 06-14-2024 End: 06-14-2024 ambulatory Casie S Jolliff Facility:[facility] Start: 06-14-2024 End: 06-14-2024 Dr. Sukumar Velazquez MD -[facility] Work Phone: Start: 06-09-2024 ambulatory Efewongbe Oleghe OLS Fa cility:[facility] Start: 06-09-2024 Sukumar Calderón L - [place] Start: 06-08-2024 Evelyn Robertson NP-C -[facility] Start: 06-02-2024 ambulatory Efewongbe Oleghe OLS Fa cility:[facility] Start: 06-01-2024 End: 06-03-2024 ambulatory Casie S Jolliff Facility:[facility] Start: 05-26-2024 ambulatory Efewongbe Oleghe OLS Fa cility:[facility] Start: 05-19-2024 ambulatory Efewongbe Oleghe OLS Fa cility:[facility] Start: 05-12-2024 ambulatory Efewongbe Oleghe OLS Fa cility:[facility] Start: 05-09-2024 End: 05-09-2024 Telephone encounter Jim Torres MD Work Phone: [facility] Comment on above: [employer] Start: 05-05-2024 End: 05-05-2024 Telephone encounter Jim Torres MD Work Phone: [facility] Comment on above: Results Start: 05-05-2024 End: 05-05-2024 ambulatory Christopher Wells [facility] Department of [facility]ious Disease Comment on above: [employer] Start: 05-03-2024 End: 05-03-2024 ambulatory Casie S Jolliff Facility:[facility] Start: 04-28-2024 ambulatory Seraongbe Veee OLS Fa cility:[facility] Start: 04-26-2024 End: 04-26-2024 ambulatory Efewongbe Oleghe Facility:[facility] Start: 04-25-2024 End: 04-25-2024 ambulatory Casie S Jolliff Facility:[facility] Start: 04-20-2024 End: 04-20-2024 ambulatory Jim Torres MD Work Phone: [facility] Comment on above: [employer] Start Start: 04-13-2024 End: 04-22-2024 Evaluation and management of inpatient GUSTABO SALDIVAR Facility:[facility] Start: 04-13-2024 End: 04-13-2024 Emergency department patient visit Nathen Ontiveros Facility:[facility] Start: 04-08-2024 ambulatory Seraongsoumya Baxtere OLS Fa cility:[facility] Start: 04-07-2024 ambulatory Casie S Jolliff Facility: [facility] Start: 04-06-2024 End: 04-06-2024 ambulatory Casie S Jolliff Facility:[facility] Start: 04-03-2024 End: 04-03-2024 ambulatory Dannie Parr Facility:[facility] Start: 03-31-2024 ambulatory Casie S Jolliff Facility: [facility] Start: 03-31-2024 End: 04-05-2024 Evaluation and management of inpatient Casie S Jolliff Facility:[facility] Start: 03-30-2024 End: 04-02-2024 ambulatory Casie S Jolliff Facility:[facility] Start: 03-30-2024 End: 03-30-2024 ambulatory Casie S Jolliff Facility:[facility] Start: 03-10-2024 ambulatory Casie S Jolliff Facility: [facility] Start: 03-03-2024 ambulatory Casie Trevizo Facility: [facility] Start: 03-03-2024 End: 03-03-2024 ambulatory Casie Trevizo Facility:[facility] Start: 06-17-2023 End: 06-17-[address] Casie Trevizo Work Phone: [facility] Work Phone: Start: 06-17-2023 End: 06-17-[address] Casie Trevizo Work Phone: [facility]-Radiology, [facility] Work Phone: Start: 05-29-2023 End: 05-29-[address] Casie Trevizo Work Phone: [facility]-Outpatient Breast Imaging Work Phone: Start: 05-11-[address] Casie navarrete Work Phone: [facility] Start: 05-11-2023 End: 05-11-[address] Casie Trevizo Work Phone: [facility] Work Phone: Start: 03-23-2023 End: 03-23-2023 Admission to same day surgery center Dr. Casie Trevizo Work Phone: [facility]-Surgical Day Care Start: 08-11-[address] Casie Trevizo Work Phone: [facility]-Laboratory Start: 08-06-2022 End: 08-06-[address] Casie Trevizo Work Phone: [facility] Work Phone: Start: 08-06-2022 End: 08-06-[address] Casie Trevizo Work Phone: [facility]-Laboratory Start: 06-06-2022 End: 06-06-[address] Casie Trevizo Work Phone: [facility] Start: 06-04-2022 End: 06-04-[address] Casie Trevizo Work Phone: [facility]-Laboratory Start: 05-23-2022 End: 05-23-[address] Cara Arce Work Phone: [facility] Work Phone: Start: 05-23-2022 End: 05-23-[address] Cara Arce Work Phone: [facility]-Outpatient Breast Imaging Start: 05-06-2022 End: 05-06-[address] Cara Arce Work Phone: [facility] Start: 05-06-[address] Cara Arce Work Phone: [facility] On[facility] Start: 03-13-2022 End: 03-13-[address] Cara Arce Work Phone: [facility] Start: 03-06-2022 Non-patient / Non-visit Dr. Cara Arce Work Phone: [facility] Start: 03-06-2022 End: 03-06-2022 Admission to same day surgery center Dr. Cara Arce Work Phone: [facility]-Endoscopy Start: 03-06-2022 End: 03-06-[address] Cara Arce Work Phone: [facility] Work Phone: Start: 02-19-2022 End: 02-19-[address] Cara Arce Work Phone: [facility] Work Phone: Start: 02-19-2022 End: 02-19-[address] Cara Arce Work Phone: [facility]-Outpatient Bone Densitometry Start: 02-06-2022 End: 02-06-[address] Cara Arce Work Phone: [facility] Start: 02-06-[address] Cara Arce Work Phone: [facility] On[facility] Start: 01-09-2022 End: 01-09-[address] Cara Arce Work Phone: [facility] Start: 01-03-2022 End: 01-03-[address] Cara Arce Work Phone: [facility] Work Phone: Start: 01-03-2022 End: 01-03-[address] Cara Arce Work Phone: [facility] Start: 12-27-2021 End: 12-27-[address] Cara Arce Work Phone: [facility] Work Phone: Start: 12-27-2021 End: 12-27-[address] Cara Arce Work Phone: [facility]-Laboratory Start: 12-26-2021 End: 12-26-2021 Emergency department patient visit [facility]-Emergency Department Start: 12-26-2021 End: 12-26-[address] Cara Arce Work Phone: [facility] Work Phone: Start: 12-26-2021 End: 12-26-2021 Patient encounter procedure [facility] Start: 12-10-2021 End: 01-01-[address] Cara Arce Work Phone: [facility] Work Phone: Start: 12-10-2021 End: 01-01-[address] [facility] Start: 12-10-2021 [facility] Start: 10-25-2021 End: 10-25-2021 Patient encounter procedure [facility] Start: 10-01-2021 End: 10-01-2021 [facility] Start: 08-27-2021 End: 08-31-2021 Discharged Recurring [facility] Start: 07-30-2021 End: 08-01-2021 Discharged Recurring [facility] Start: 06-25-2021 End: 07-01-2021 [facility] Start: 06-24-2021 End: 06-24-2021 [facility] Start: 05-28-2021 End: 06-03-2021 [facility]charged [facility] Start: 05-21-2021 End: 05-21-2021 Patient encounter procedure [facility]-Outpatient Breast Imaging Start: 05-15-2021 End: 05-15-2021 Patient encounter procedure [facility]-MRI - [facility] Start: 05-14-2021 End: 05-14-2021 Patient encounter procedure [facility]-Radiology, [place] Start: 04-30-2021 End: 05-03-2021 [facility]charged [facility] Start: 04-08-2021 End: 04-08-2021 ambulatory [facility] Start: 01-23-2021 Jamshid Ramires CMA [facility] Comment on above: Neuropathic pain (Pr imary Dx) Start: 10-04-2020 End: 10-08-2020 ambulatory [facility] Start: 10-04-2020 End: 10-08-2020 [facility] Start: 10-04-2020 End: 10-04-2020 Office outpatient visit 25 minutes Analilia Oconnor DO [facility] Comment on above: Transverse myelitis (HCC) (Primary Dx); Neuropathic pain; Vitamin D deficiency; Other specified disorders involving the immune mechanism, 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) Start: 10-04-2020 End: 10-05-2020 ambulatory CARA F KIRAN [facility] Start: 10-04-2020 End: 10-04-2020 Subsequent hospital visit by physician Gi Frances MD Work Phone: [facility] MRI Comment on above: Arrived Start: 09-10-2020 End: 09-11-2020 ambulatory PROVIDER NOT IN [facility] Start: 09-10-2020 End: 09-10-2020 Subsequent hospital visit by physician Provider Not In [facility] Radiology External Films Comment on above: Arrived Start: 09-10-2020 End: 09-10-2020 Office outpatient new 60 minutes Cara Thompsonp DO Work Phone: [facility] Comment on above: Transverse myelitis (HCC) (Primary Dx); Neuropathic pain; Vitamin D deficiency Start: 07-06-2020 End: 07-06-2020 Transcribe Orders Cara Thompsonp Work Phone: [facility] Comment on above: Transverse [...] Phone: Start: 06-16-2024 Anion gap measurement D onra Trevizo MD Work Phone: Start: 06-16-2024 Blood [...] Nucleated red blood cell count procedure Dr. aCsie Trevizo MD Work Phone: Start: 06-16-2024 Platelet [...] 03-23-2023 Injection of spinal epidural space Dr. Csaie Trevizo Work Phone: Start: 05-23-2022 Screening mammography [...] DTaP,Tdap,Td Vaccine (2 - Td or Tdap) [facility] Start: 04-14-2029 Lipid panel Lipid Screening [facility] Start: 04-17-2027 Diabetes Screening Diabetes Screening [facility] Start: 04-14-2025 Hepatitis B surface antibody level LDL Cholesterol [facility] Start: 01-16-2025 Fluoroscopic guidance [facility] Start: 01-16-2025 Patient discharge [facility] Start: 05-04-2024 Advance Directive Discussion Advance Directive Discussion [facility] Start: 01-03-2024 Covid-19 Vaccine ( season) Covid-19 Vaccine () [facility] Start: 01-03-2024 Influenza vaccination [facility] Start: 05-04-2023 Advance Directive Discussion Advance Directive Discussion [facility] Start: 03-23-2023 Anes dx/ther nerve block/injection prone pos ANESTH N BLOCK/INJ PRONE [facility] Start: 03-23-2023 Njx dx/ther agt pvrt facet jt lmbr/sac 1 level INJ PARAVERT F JNT L/S 1 [facility] Start: 03-23-2023 Njx dx/ther agt pvrt facet jt lmbr/sac 2nd level INJ PARAVERT F JNT L/S 2 [facility] Start: 03-23-2023 Patient discharge [facility] Start: 03-06-2022 Colonoscopy w/biopsy single/multiple COLONOSCOPY AND BIOPSY [facility] Start: 03-06-2022 Colsc flexible w/control bleeding any method COLONOSCOPY W/CONTROL BLEED [facility] Start: 03-06-2022 Patient discharge [facility] Start: 12-27-2021 Celiac disease screen [facility] Work Phone: Start: 12-27-2021 IgE [Units/volume] in Serum or Plasma [facility] Work Phone: Start: 12-27-2021 Serum immunofixation [facility] Work Phone: Start: 12-27-2021 [facility] Work Phone: Start: 12-27-2021 Patient referral [facility] Work Phone: Start: 12-26-2021 Administration of blood product [facility] Work Phone: Start: 06-24-2021 Anesthesia lumbar region nos ANESTH SPINE CORD SURGERY [facility] Work Phone: Start: 06-24-2021 Insj/rplcmt spi npgr dir/induxive coupling INSRT/REDO SPINE N GENERATOR [facility] Work Phone: Start: 06-24-2021 [place] impltj nstim eltrds plate/paddle edrl IMPLANT NEUROELECTRODES [facility] Work Phone: Start: 04-08-2021 End: 04-08-2021 Patient encounter procedure [facility] Start: 01-26-2021 COVID-19 Vaccine (3 - Booster for Pfizer series) COVID-19 Vaccine (3 - Booster for Pfizer series) [facility] Start: 01-02-2021 Influenza vaccination Sequential Influenza Vaccine (#1) [facility] Start: 10-11-2020 End: 09-10-2021 MRI of cervical spine MR Cervical Spine With And Without Contrast Imaging Routine Transverse myelitis (HCC) Expected: 10/11/2020, Expires: 09/10/2021 [facility] Comment on above: Expected: 10/11/2020, Expires: 2 Start: 10-11-2020 End: 09-10-2021 MRI of thoracic spine MR Thoracic Spine With And Without Contrast Imaging Routine Transverse myelitis (HCC) Expected: 10/11/2020, Expires: 09/10/2021 [facility] Comment on above: Expected: 10/11/2020, Expires: 2 Start: 10-04-2020 End: 10-04-2020 Patient encounter procedure 10/04/2020 Office Visit Neurology Elvin, Analilia Andrade, [facility] Start: 10-04-2020 End: 10-04-2020 Patient encounter procedure 10/04/2020 Appointment Radiology Gi Frances MD [address] [facility] [address] [place] [address] [phone] [facility] MRI Start: 03-16-2020 Procedure Education Eprescribed prescriptions ([id number]) [facility] Work Phone: Start: 09-14-2019 Screening for malignant neoplasm of breast Mammogram Screening [facility] Start: 09-14-2019 Screening mammography Mammogram [facility] Start: 12-01-2018 Screening for malignant neoplasm of colon [facility] Start: 09-24-2018 Screening for malignant neoplasm of breast Mammogram [facility] Start: 09-24-2018 Screening mammography Mammogram [facility] Start: 06-13-2018 Screening for malignant neoplasm of colon [facility] Start: 2016 Fall risk assessment Falls Risk Assessment [facility] Start: 2016 Pneumococcal Vaccine: Age 65+ (1 of 1 - PPSV23) Pneumococcal Vaccine: Age 65+ (1 of 1 - PPSV23) [facility] Start: 2016 Screening for osteoporosis Bone Density Screening [facility] Start: 04-25-2014 Administration of herpes zoster vaccine Zoster Vaccines (2 of 3) [facility] Start: 04-25-2014 Shingrix Vaccine (2 of 3) Shingrix Vaccine (2 of 3) [facility] Start: 2011 RSV Vaccine (1 - Risk 60-74 years 1-dose series) RSV Vaccine (1 - Risk 60-74 years 1-dose series) [facility] Start: 2001 Screening for malignant neoplasm of colon [facility] Start: 1996 Screening for malignant neoplasm of colon [facility] Start: 1969 Annual PCP Team Chronic Disease Visit Annual PCP Team Chronic Disease Visit [facility] Start: 1969 Anxiety Screening Anxiety Screening [facility] Start: 1969 BP Controlled (<130/80) BP Controlled (<130/80) [facility] Start: 1969 Hepatitis C screening Hepatitis C Screening [facility] Start: 1963 Depression screening using PHQ-9 (Patient Health Questionnaire 9) score [facility] Start: 1954 History and physical examination, annual for health maintenance Wellness Visit [facility] Start: 1951 Screening for osteoporosis Dexa Scan [facility] Start: 1951 Tetanus vaccination Tetanus: Every 10yrs [facility] Albumin [Moles/volum e] in Serum or Plasma [facility] Work Phone: Albumin/Globulin ratio [facility] Work Phone: CBC W Auto Different ial panel - Blood [facility] Work Phone: CBC W Auto Different ial panel - Blood [facility] CBC W Auto Different ial panel - Blood [facility] CBC W Auto Different ial panel - Blood [facility] CT Abdomen and Pelvis [facility] Work Phone: Electrophoresis: [id number] [facility] Work Phone: Electrophoresis: kris ma globulin [facility] Work Phone: Ferritin [Mass/volum e] in Serum or Plasma [facility] Work Phone: Ferritin [Mass/volum e] in Serum or Plasma [facility] Ferritin [Mass/volum e] in Serum or Plasma [facility] Ferritin [Mass/volum e] in Serum or Plasma [facility] Folate [Mass/volume] in Serum or Plasma [facility] Globulin measurement [facility] Work Phone: Haptoglobin [Mass/volume] in Serum or Plasma [facility] IgA [Mass/volume] in Serum or Plasma [facility] Work Phone: IgE [Units/volume] i n Serum or Plasma [facility] Work Phone: IgG [Mass/volume] in Serum or Plasma [facility] Work Phone: IgM [Mass/volume] in Serum or Plasma [facility] Work Phone: Iron [Mass/mass] in Unspecified specimen [facility] Iron and Iron bindin g capacity panel - Serum or Plasma [facility] Work Phone: Iron and Iron bindin g capacity panel - Serum or Plasma [facility] Iron and Iron bindin g capacity panel - Serum or Plasma [facility] Iron and Iron bindin g capacity panel - Serum or Plasma [facility] Lactate dehydrogenas e measurement [facility] [facility] MRI of cervical spine MR Cervica l Spine With And Without Contrast Imaging Routine Transverse myelitis (HCC) 10/04/2020 10:11 AM EDT [facility] Neutrophil cytoplasm ic Ab.classic [Units/volume] in Serum [facility] Work Phone: P-ANCA measurement [facility] Work Phone: Patient Education GI Bleeding Ca uses and Tests Anemia Iron Supplements [facility] Work Phone: Patient referral [facility] Work Phone: Protein electrophore sis panel - Serum or Plasma [facility] Work Phone: Reticulocyte count [facility] Work Phone: Reticulocyte count [facility] Reticulocyte count [facility] Serum immunofixation [facility] Serum protein electrophoresis [facility] Work Phone: Smooth muscle Ab [Presence] in Serum [facility] Work Phone: Vitamin B12 measurement [facility] Work Phone: Vitamin B12 measurement [facility] Vitamin B12 measurement [facility] Immunizations Immunization Date Immunization Notes Care Provider [facility] 03-13-2022 influenza virus vaccine, unspecified formulation Jim Torres MD Work Phone: [facility] 07-26-2020 Covid (Pfizer) [facility] 07-05-2020 Covid (Pfizer) [facility] 01-28-2017 influenza, injectabl e, quadrivalent, preservative free Dr. Casie Trevizo Work Phone: [facility] 01-28-2017 influenza, seasonal, injectable [facility] 01-23-2017 Pneumococcal Vaccine [facility] Work Phone: 01-23-2017 pneumococcal vaccine , unspecified formulation Dr. Cara Arce Work Phone: [facility] 08-08-2015 Pneumococcal Vaccine [facility] Work Phone: 08-08-2015 pneumococcal vaccine , unspecified formulation Dr. Cara Arce Work Phone: [facility] 01-02-2015 Influenza virus vaccine [facility] 10-11-2012 Pneumococcal Vaccine [facility] Work Phone: 10-11-2012 pneumococcal vaccine , unspecified formulation Dr. Cara Arce Work Phone: [facility] Payers Date Payer Category Payer Self-pay [id number] 2019 Unknown [id number] 1. [id number] 2019 Unknown [id number] 2005 Unknown 2003 Medicare [id number] 1.2 .[id number] 2003 Medicare [id number]. [id number] 2003 Medicare [id number] 1950 Unknown [id number] 2.16. 840.1.950774.3.579.2.900 1950 Unknown [id number] 2.16. 840.1.417003.3.579.2.900 1950 Unknown [id number] 2.16. 840.1.080470.3.579.2.900 1950 Unknown [id number] 2.16. 840.1.593891.3.579.2.900 1950 Unknown [id number] 2.16. 840.1.679858.3.579.2.900 1950 Unknown [id number] 2.16. 840.1.593710.3.579.2.900 1950 Unknown [id number] 2.16. 840.1.314142.3.579.2.900 1950 Unknown [id number] 2.16. 840.1.341434.3.579.2.900 1950 Unknown [id number] 2.16. 840.1.428150.3.579.2.900 Unknown [id number] Unknown [id number] 2.16.8 40.1.452183.3.579.2.462 Unknown [id number] 2.16.8 40.1.786719.3.579.2.462 Unknown [id number] 2.16.8 40.1.100571.3.579.2.462 Unknown [id number] 2.16.8 40.1.613095.3.579.2.462 Unknown [id number] 2.16.8 40.1.916770.3.579.2.462 Unknown [id number] 2.16.8 40.1.979803.3.579.2.462 Unknown [id number] 2.16.8 40.1.366269.3.579.2.462 Unknown [id number] 2.16.8 40.1.155675.3.579.2.462 Unknown [id number] 2.16.8 40.1.524656.3.579.2.462 Unknown [id number] 2.16.8 40.1.248058.3.579.2.462 Unknown [id number] 2.16.8 40.1.390080.3.579.2.462 Unknown [id number] 2.16.8 40.1.023901.3.579.2.462 Unknown [id number] 2.16.8 40.1.067863.3.579.2.462 Unknown [id number] 2.16.8 40.1.238150.3.579.2.462 Unknown [id number] 2.16.8 40.1.965338.3.579.2.462 Unknown [id number] 2.16.8 40.1.024059.3.579.2.462 Unknown [id number] 2.16.8 40.1.006354.3.579.2.462 Unknown [id number] 2.16.8 40.1.154735.3.579.2.462 Unknown [id number] 2.16.8 40.1.663236.3.579.2.462 Unknown [id number] 2.16.8 40.1.865307.3.579.2.462 Unknown [id number] 2.16.8 40.1.042593.3.579.2.462 Unknown [id number] 2.16.8 40.1.186609.3.579.2.462 Unknown [id number] 2.16.8 40.1.700640.3.579.2.462 Unknown [id number] 2.16.8 40.1.756744.3.579.2.462 Unknown [id number] 2.16.8 40.1.607846.3.579.2.462 Unknown [id number] 2.16.8 40.1.965913.3.579.2.462 Unknown [id number] 2.16.8 40.1.267297.3.579.2.462 Unknown [id number] 2.16.8 40.1.823476.3.579.2.462 Unknown [id number] 2.16.8 40.1.835866.3.579.2.462 Unknown [id number] 2.16.8 40.1.711552.3.579.2.462 Unknown [id number] 2.16.8 40.1.789855.3.579.2.462 Unknown [id number] 2.16.8 40.1.592445.3.579.2.462 Unknown [id number] 2.16.8 40.1.585996.3.579.2.462 Unknown [id number] 2.16.8 40.1.494555.3.579.2.462 Unknown [id number] 2.16.8 40.1.193023.3.579.2.462 Unknown [id number] 2.16.8 40.1.202802.3.579.2.462 Unknown [id number] 2.16.8 40.1.329191.3.579.2.462 Unknown [id number] 2.16.8 40.1.931213.3.579.2.462 Unknown [id number] 2.16.8 40.1.692876.3.579.2.462 Unknown [id number] 2.16.8 40.1.643793.3.579.2.462 Unknown [id number] 2.16.8 40.1.165755.3.579.2.462 Unknown [id number] 2.16.8 40.1.936230.3.579.2.462 Unknown [id number] 2.16.8 40.1.336943.3.579.2.462 Social History Date Type Detail Facility Tobacco smoking stat us [facility] Unknown if ever smoked [facility] Start: 1950 Sex Assigned At Not on file [facility] Exposure to SARS-CoV -2 (event) Not sure [facility] Start: 09-23-2020 End: 04-13-2024 Tobacco smoking status NCIS Never smoker [facility] Start: 07-26-2013 End: 09-23-2020 Tobacco use and exposure Never used [facility] Work Phone: Start: 09-23-2020 End: 10-20-2020 Alcohol intake Ex-drinker (finding) [facility] Start: 09-13-2020 History SDOH Alcohol Frequency 1 [facility] Start: 09-13-2020 History SDOH Alcohol Std Drinks 99 [facility] Start: 06-19-2021 End: 03-19-2023 Tobacco smoking status NHIS Unknown if ever smoked [facility] Start: 11-11-2019 None [facility] Start: 11-11-2019 Alone [facility] Start: 12-03-2019 Non-smoker [facility] Start: 1950 Sex Assigned At Female [facility] Start: 04-19-2024 Alcoholic beverage intake Curr ent non-drinker of alcohol (finding) [facility] Start: 10-10-2022 End: 04-15-2024 History of Social function [facility] Work Phone: Start: 10-10-2022 End: 04-15-2024 [facility] Utilities [facility] Work Phone: Has the [employer], or water company threatened to shut off services in your home in past 12Mo No [facility] Work Phone: (I/We) worried wheth er (my/our) food would run out before (I/we) got money to buy more. Never true [facility] In the past 12 month s, has lack of transportation kept you from medical appointments or from getting medications? No [facility] NEGATED: Highlighted row [facility] Medical Equipment Procedure Code Equipment Code Equipment [...] level controlled operating mode defined in IEC 98327-6-17 SynchroMed II pump performance has not been [...] Assessment Result Facility 01-16-2025 Cognitive function Voice/Name [facility] Work Phone: 03-23-2023 Cognitive function Voice/Name [facility] Work Phone: 11-17-2022 Cognitive function Voice/Name [facility] Work Phone: 03-06-2022 Cognitive function Voice/Name [facility] Work Phone: 12-26-2021 Cognitive function Level Of Cons ciousness Awake;Alert;Appropriate;Follow s Commands [facility] Work Phone: 02-21-2022 Cognitive function Level Of Cons ciousness Awake;Appropriate [facility] Work Phone: 06-24-2021 Cognitive function Voice/Name [facility] Work Phone: Clinical Notes 09-10-2020 to 01-16-2025 Note Date & Type Note Facility 01-16-2025 Procedure note [facility] 10-12-2024 Progress note Note Date/Time October 12, 2024 11:35am [facility] [address] [place] [address] Progress Note - Wound Care 10/12/24 1131 MR#: [id number] Acct: [id number] Name: ALEENA ANDREA Rep #:[id number] 12 : 1950 74 From: Evelyn Robertson NP [employer]Y[employer] DREDGE-C PCP: Dr. Casie Trevizo MD Status:REG RCR [...] pressure ulcer. It was debrided twice at [facility]. She has been following for wound care [...] ischium. She has an adult daughter in [place] and an adult daughter here in [place] [...] Date Recorded By Document 10/05/24 11:05 RB [id number] 10/05/24 11:09 RB Document 10/12/24 10:53 RB [id number] 10/12/24 10:57 RB 10/05/24 10/12/24 11:05 10:53 WC - Today's Visit Information Type of service Follow-up Visit Follow-up Visit (Physician/SOAKING PITS SUPERVISOR (Physician/SOAKING PITS SUPERVISOR ) ) Arrival Mode Wheelchair Wheelchair Transfer [...] Date Recorded By Document 10/05/24 11:05 RB [id number] 10/05/24 11:09 RB Document 10/12/24 10:53 RB [id number] 10/12/24 10:57 RB 10/05/24 10/12/24 11:05 10:53 [...] Amt Large (67-100%) Medium (34-66%) -Granulation Quality Leyner Leyner -Slough/Fibrin Yes Yes -Necrosis Amt Small (1-33%) Large (67-100%) -Necrotic Tissue Type Adherent Slough Adherent Slough -Structure Exposed N/A N/A -Texture (Leyla-wound Skin Appearance) Assessed Assessed -Moisture (Leyla-wound Skin Appearance) Assessed Assessed -Color (Leyla-wound Skin Appearance) Assessed, Erythema Erythema -Temperature (Leyla-wound Skin No Abnormality No Abnormality Appearance) (Pt Warm) (Pt Warm) -Tenderness on Palpation (Lelya-wound No No Skin Appearance) -Ulcer Cleansing Wound [...] Amt Medium (34-66%) Medium (34-66%) -Granulation Quality Leyner Leyner -Slough/Fibrin Yes Yes -Necrosis Amt Small (1-33%) [...] Amt Large (67-100%) Medium (34-66%) -Granulation Quality Leyner Hyper- granulation, Leyner,Red -Slough/Fibrin Yes Yes -Necrosis Amt Medium (34-66%) [...] Date Recorded By Document 10/05/24 11:23 DS [id number] 10/05/24 11:31 DS Document 10/12/24 11:03 BM [id number] 10/12/24 11:08 BMF 10/05/24 10/12/24 11:23 11:03 [...] Disc -Expiration Date 05/04/29 -Product Lot Number [id number] -Percent Used 100 -Lot number of Saline Used [id number] -Bleeding Controlled with Pressure NA -Treatment Response [...] Date Recorded By Document 10/05/24 11:57 RB [id number] 10/05/24 11:59 RB Document 10/12/24 11:23 DL [id number] 10/12/24 11:25 DL 10/05/24 10/12/24 11:57 11:23 [...] Summary of Care Provided Yes Facility Type [facility] Facility Orders Sent Yes Assessment/Plan Assessment/Plan [...] 1135 <Electronically signed by Evelyn Robertson NP [employer] OYSTER DREDGE-C> Cosigner Signature (if applicable): CC: ~ Signed [facility] Work Phone: 1(608) 868-407106-11-2025 Progress note [facility] [address] [place] [address] Progress Note - Wound Care 10/12/24 1131 MR#: [id number] Acct: [id number] Name: ALEENA ANDREA Rep #:[id number] 12 : 1950 74 From: Evelyn Robertson NP [employer] OYSTER DREDGE-C PCP: Dr. Casie Trevizo MD Status:REG RCR [...] pressure ulcer. It was debrided twice at [facility]. She has been following for wound care [...] ischium. She has an adult daughter in [place] and an adult daughter here in [place] [...] Date Recorded By Document 10/05/24 11:05 RB [id number] 10/05/24 11:09 RB Document 10/12/24 10:53 RB [id number] 10/12/24 10:57 RB 10/05/24 10/12/24 11:05 10:53 - Today's Visit Information Type of service Follow-up Visit Follow-up Visit (Physician/SOAKING PITS SUPERVISOR (Physician/SOAKING PITS SUPERVISOR ) ) Arrival Mode Wheelchair Wheelchair Transfer [...] Date Recorded By Document 10/05/24 11:05 RB [id number] 10/05/24 11:09 RB Document 10/12/24 10:53 RB [id number] 10/12/24 10:57 RB 10/05/24 10/12/24 11:05 10:53 [...] Amt Large (67-100%) Medium (34-66%) -Granulation Quality Leyner Leyner -Slough/Fibrin Yes Yes -Necrosis Amt Small (1-33%) [...] Amt Medium (34-66%) Medium (34-66%) -Granulation Quality Leyner Leyner -Slough/Fibrin Yes Yes -Necrosis Amt Small (1-33%) [...] Amt Large (67-100%) Medium (34-66%) -Granulation Quality Leyner Hyper- granulation, Leyner,Red -Slough/Fibrin Yes Yes -Necrosis Amt Medium (34-66%) [...] Date Recorded By Document 10/05/24 11:23 DS [id number] 10/05/24 11:31 DS Document 10/12/24 11:03 BM [id number] 10/12/24 11:08 BMF 10/05/24 10/12/24 11:23 11:03 [...] Disc -Expiration Date 05/04/29 -Product Lot Number [id number] -Percent Used 100 -Lot number of Saline Used [id number] -Bleeding Controlled with Pressure NA -Treatment Response [...] Date Recorded By Document 10/05/24 11:57 RB [id number] 10/05/24 11:59 RB Document 10/12/24 11:23 DL [id number] 10/12/24 11:25 DL 10/05/24 10/12/24 11:57 11:23 [...] Summary of Care Provided Yes Facility Type Assisted Care Facility Orders Sent Yes Assessment/Plan Assessment/Plan [...] Cosigner Signature (if applicable): CC: ~ Signed [facility]06-04-2025 Progress note Author Evelyn Robertson [facility] Note Date/Time October 05, 2024 11:52 am [facility] [address] [place] [address] Progress Note - Wound Care 10/05/24 1147 MR#: [id number] Acct: [id number] Name: ALEENA ANDREA Rep #:[id number] 22 : 1950 74 From: Evelyn Robertson NP [employer] OYSTER DREDGE-C PCP: Dr. Casie Trevizo MD Status:REG R [...] pressure ulcer. It was debrided twice at [facility]. She has been following for wound care [...] ischium. She has an adult daughter in [place] and an adult daughter here in [place] whoare both very involved and supportive. Progress [...] Date Recorded By Document 10/05/24 11:05 LAURENCE [id number] 10/05/24 11:09 LAURENCE 10/05/24 11:05 - Today's Visit Information Type of service Follow-up Visit (Physician/SOAKING PITS SUPERVISOR ) Arrival Mode Wheelchair Transfer Assistance Manual [...] Date Recorded By Document 10/05/24 11:05 RB [id number] 10/05/24 11:09 RB 10/05/24 11:05 Wound Center Nurse 1 19. sacral -Combined with other wound No -Current Size (cm) - Length 1 -Current Size (cm) - Width 0.6 -Current Size (cm) - Depth 0.1 -Total Square Cm 0.6 -Tunneling No -Undermining/Tunneling No -Circular Undermining No -Exudate Amt Medium -Exudate Type Serosanguineous -Wound Margin Distinct, Outline Attached -Granulation Amt Large (67-100%) -Granulation Quality Leyner -Slough/Fibrin Yes -Necrosis Amt Small (1-33%) -Necrotic [...] Attached -Granulation Amt Medium (34-66%) -Granulation Quality Leyner -Slough/Fibrin Yes -Necrosis Amt Small (1-33%) -Necrotic [...] Attached -Granulation Amt Large (67-100%) -Granulation Quality Leyner -Slough/Fibrin Yes -Necrosis Amt Medium (34-66%) -Necrotic [...] Date Recorded By Document 10/05/24 11:23 DS [id number] 10/05/24 11:31 DS 10/05/24 11:23 Wound Center [...] Disc -Expiration Date 05/04/29 -Product Lot Number [id number] -Percent Used 100 -Lot number of Saline Used [id number] -Bleeding Controlled with Pressure -Treatment Response Procedure [...] Adaptic over top and a foam SAP [place] dressing every day follow-up in 1 week 10/05/24 1152 <Electronically signed by Evelyn Robertson NP [employer]KH[employer] OYSTER DREDGE-C> Cosigner Signature (if applicable): CC: ~ Signed [facility] Work Phone: 1(109) 857-246806-04-2025 Progress note [facility] [address] [place] [id number] Progress Note - Wound Care 10/05/24 1147 MR#: [id number] Acct: [id number] Name: ALEENA ANDREA Rep #:[id number] 22 : 1950 74 From: Evelyn Robertson NP [employer]KHAND OYSTER DREDGE-C PCP: Dr. Casie Trevizo MD Status:REG RCR [...] pressure ulcer. It was debrided twice at [facility]. She has been following for wound care [...] ischium. She has an adult daughter in [place] and an adult daughter here in [place] whoare both very involved and supportive. Progress [...] Date Recorded By Document 10/05/24 11:05 LAURENCE [id number] 10/05/24 11:09 LAURENCE 10/05/24 11:05 MARY - Today's Visit Information Type of service Follow-up Visit (Physician/SOAKING PITS SUPERVISOR ) Arrival Mode Wheelchair Transfer Assistance Manual [...] Date Recorded By Document 10/05/24 11:05 LAURENCE [id number] 10/05/24 11:09 RB 10/05/24 11:05 Wound Center Nurse 1 19. sacral -Combined with other wound No -Current Size (cm) - Length 1 -Current Size (cm) - Width 0.6 -Current Size (cm) - Depth 0.1 -Total Square Cm 0.6 -Tunneling No -Undermining/Tunneling No -Circular Undermining No -Exudate Amt Medium -Exudate Type Serosanguineous -Wound Margin Distinct, Outline Attached -Granulation Amt Large (67-100%) -Granulation Quality Leyner -Slough/Fibrin Yes -Necrosis Amt Small (1-33%) -Necrotic [...] Attached -Granulation Amt Medium (34-66%) -Granulation Quality Leyner -Slough/Fibrin Yes -Necrosis Amt Small (1-33%) -Necrotic [...] Attached -Granulation Amt Large (67-100%) -Granulation Quality Leyner -Slough/Fibrin Yes -Necrosis Amt Medium (34-66%) -Necrotic [...] Date Recorded By Document 10/05/24 11:23 DS [id number] 10/05/24 11:31 DS 10/05/24 11:23 Wound Center [...] Disc -Expiration Date 05/04/29 -Product Lot Number [id number] -Percent Used 100 -Lot number of Saline Used [id number] -Bleeding Controlled with Pressure -Treatment Response Procedure [...] Adaptic over top and a foam SAP [place] dressing every day follow-up in 1 week 10/05/24 1152 Cosigner Signature (if applicable): CC: ~ Signed [facility]05-28-2025 Progress note Author Evelyn Robertson [facility] Note Date/Time September 28, 2024 12:38 pm [facility] [address] [place] [address] Progress Note - Wound Care 09/28/24 1225 MR#: [id number] Acct: [id number] Name: ALEENA ANDREA Rep #:[id number] 11 : 1950 74 From: Evelyn Robertson NP [employer]KHAND OYSTER DREDGE-C PCP: Dr. Casie Trevizo MD Status:REG RCR [...] pressure ulcer. It was debrided twice at [facility]. She has been following for wound care [...] ischium. She has an adult daughter in [place] and an adult daughter here in [place] whoare both very involved and supportive. Progress [...] Date Recorded By Document 09/07/24 10:22 DL [id number] 09/07/24 10:35 DL Document 09/14/24 10:49 RB [id number] 09/14/24 10:53 RB Document 09/21/24 10:42 DL [id number] 09/21/24 10:51 DL Document 09/28/24 11:01 RB [id number] 09/28/24 11:05 RB 09/07/24 09/14/24 09/21/24 10:22 10:49 10:42 - Today's Visit Information Type of service Follow-up Visit Follow-up Visit Follow-up Visit (Physician/SOAKING PITS SUPERVISOR (Physician/SOAKING PITS SUPERVISOR (Physician/SOAKING PITS SUPERVISOR ) ) ) Arrival Mode Wheelchair Wheelchair [...] Visit Information Type of service Follow-up Visit (Physician/SOAKING PITS SUPERVISOR ) Arrival Mode Wheelchair Transfer Assistance Manual [...] Date Recorded By Document 09/07/24 10:22 DL [id number] 09/07/24 10:35 DL Document 09/14/24 10:49 RB [id number] 09/14/24 10:53 RB Document 09/21/24 10:42 DL [id number] 09/21/24 10:51 DL Document 09/28/24 11:01 RB [id number] 09/28/24 11:05 RB 09/07/24 09/14/24 09/21/24 10:22 10:49 10:42 Wound Center Nurse 1 #17- L. Ischium -Current Size (cm) - Length 0 -Current Size (cm) - Width 0 -Current Size (cm) - Depth 0 -Total Square Cm 0 -Photo Taken Yes -Exudate Amt None Present -Wound Margin Flat & Intact -Granulation Amt Large (67-100%) -Granulation Quality Leyner -Necrosis Amt None Present (0 %) -Structure [...] (34-66%) None Present (0 %) -Granulation Quality Leyner -Slough/Fibrin Yes -Necrosis Amt Small (1-33%) Large [...] (34-66%) Medium (34-66%) Large (67-100%) -Granulation Quality Leyner Leyner Leyner -Slough/Fibrin Yes -Necrosis Amt Medium (34-66%) Small [...] Medium (34-66%) Large (67-100%) -Granulation Quality Hyper- Leyner Hyper- granulation, granulation, Leyner Leyner,Red -Slough/Fibrin Yes -Necrosis Amt None Present (0 [...] Attached -Granulation Amt Medium (34-66%) -Granulation Quality Leyner -Slough/Fibrin Yes -Necrosis Amt Small (1-33%) -Necrotic [...] Attached -Granulation Amt Large (67-100%) -Granulation Quality Leyner -Slough/Fibrin Yes -Necrosis Amt Small (1-33%) -Necrotic [...] Attached -Granulation Amt Medium (34-66%) -Granulation Quality Leyner -Slough/Fibrin Yes -Necrosis Amt Medium (34-66%) -Necrotic [...] Recorded Date Recorded By Document 09/07/24 10:45 Unicon [id number] 09/07/24 10:57 Unicon Document 09/14/24 11:01 Unicon [id number] 09/14/24 11:12 Unicon Document 09/21/24 10:57 Unicon [id number] 09/21/24 11:19 Unicon Document 09/28/24 11:23 Unicon [id number] 09/28/24 11:37 BMF 09/07/24 09/14/24 09/21/24 10:45 [...] Epifix -Expiration Date 11/01/28 -Product Lot Number [id number] -Percent Used 100 -Lot number of Saline Used [id number] -Bleeding Controlled with Pressure Pressure,Silver Pressure Nitrate [...] Disc -Expiration Date 05/04/29 -Product Lot Number [id number] -Percent Used 100 -Lot number of Saline Used [id number] -Bleeding Controlled with Pressure -Treatment Response Procedure [...] Date Recorded By Document 09/07/24 11:14 DL [id number] 09/07/24 11:19 DL Document 09/14/24 11:28 DL [id number] 09/14/24 11:31 DL Document 09/21/24 11:30 MT [id number] 09/21/24 11:39 MT Document 09/28/24 12:03 RB [id number] 09/28/24 12:05 RB 09/07/24 09/14/24 09/21/24 11:14 [...] Nora Hollis. per Jessica Tsang. Facility Type Assisted [facility] Orders Sent Yes Yes Yes [...] Adaptic over top and a foam SAP [place] dressing every day follow-up in 1 week 09/28/24 1238 <Electronically signed by Evelyn Robertson NP [employer]KHAND OYSTER DREDGE-C> Cosigner Signature (if applicable): CC: ~ Signed [facility] Work Phone: 1(768) 455-320205-28-2025 Evaluation note* Diagnosis Onset Date Resolution Status [...] f buttock chronic October 12, 2024 10:30am [facility] Work Phone: 1(263) 646-376805-21-2025 Progress note Author Evelyn Robertson [facility] Note Date/Time September 21, 2024 12:11 pm [facility] [address] [place] [address] Progress Note - Wound Care 09/21/24 1201 MR#: [id number] Acct: [id number] Name: ALEENA ANDREA Rep #:[id number] 12 : 1950 74 From: Evelyn Robertson NP [employer]KHAND OYSTER DREDGE-C PCP: Dr. Casie Trevizo MD Status:REG RCR [...] pressure ulcer. It was debrided twice at [facility]. She has been following for wound care [...] ischium. She has an adult daughter in [place] and an adult daughter here in [place] whoare both very involved and supportive. Progress of Wound: Right ischium wound is healed. She developed a blister from putting a heating pad on her buttocks because she was cold. About the size of a quarter now it is flat and smooth we will apply Fibracol and Adaptic on top of it to keep it from getting infected with a foam dressing, [place] SAP pad. The left great toe hallux [...] Date Recorded By Document 09/07/24 10:22 DL [id number] 09/07/24 10:35 DL Document 09/14/24 10:49 RB [id number] 09/14/24 10:53 RB Document 09/21/24 10:42 DL [id number] 09/21/24 10:51 DL 09/07/24 09/14/24 09/21/24 10:22 10:49 10:42 WC - Today's Visit Information Type of service Follow-up Visit Follow-up Visit Follow-up Visit (Physician/SOAKING PITS SUPERVISOR (Physician/SOAKING PITS SUPERVISOR (Physician/SOAKING PITS SUPERVISOR ) ) ) Arrival Mode Wheelchair Wheelchair [...] Date Recorded By Document 09/07/24 10:22 DL [id number] 09/07/24 10:35 DL Document 09/14/24 10:49 RB [id number] 09/14/24 10:53 RB Document 09/21/24 10:42 DL [id number] 09/21/24 10:51 DL 09/07/24 09/14/24 09/21/24 10:22 10:49 10:42 Wound Center Nurse 1 #17- L. Ischium -Current Size (cm) - Length 0 -Current Size (cm) - Width 0 -Current Size (cm) - Depth 0 -Total Square Cm 0 -Photo Taken Yes -Exudate Amt None Present -Wound Margin Flat & Intact -Granulation Amt Large (67-100%) -Granulation Quality Leyner -Necrosis Amt None Present (0 %) -Structure [...] (34-66%) None Present (0 %) -Granulation Quality Leyner -Slough/Fibrin Yes -Necrosis Amt Small (1-33%) Large [...] (34-66%) Medium (34-66%) Large (67-100%) -Granulation Quality Leyner Leyner Leyner -Slough/Fibrin Yes -Necrosis Amt Medium (34-66%) Small [...] Medium (34-66%) Large (67-100%) -Granulation Quality Hyper- Leyner Hyper- granulation, granulation, Leyner Leyner,Red -Slough/Fibrin Yes -Necrosis Amt None Present (0 [...] Recorded Date Recorded By Document 09/07/24 10:45 [facility] [id number] 09/07/24 10:57 [facility] Document 09/14/24 11:01 [facility] [id number] 09/14/24 11:12 [facility] Document 09/21/24 10:57 [facility] [id number] 09/21/24 11:19 [facility] 09/07/24 09/14/24 09/21/24 10:45 11:01 [...] Epifix -Expiration Date 11/01/28 -Product Lot Number [id number] -Percent Used 100 -Lot number of Saline Used [id number] -Bleeding Controlled with Pressure Pressure,Silver Pressure Nitrate [...] Date Recorded By Document 09/07/24 11:14 DL [id number] 09/07/24 11:19 DL Document 09/14/24 11:28 DL [id number] 09/14/24 11:31 DL Document 09/21/24 11:30 MT [id number] 09/21/24 11:39 MT 09/07/24 09/14/24 09/21/24 11:14 [...] Nora Hollis. per Jessica Tsang. Facility Type Cement [facility] Orders Sent Yes Yes Yes [...] Adaptic over top and a foam SAP [place] dressing every day follow-up in 1 week 09/21/24 1211 <Electronically signed by Evelyn Robertson NP DECKHAND OYSTER DREDGE-C> Cosigner Signature (if applicable): CC: ~ Signed [facility] Work Phone: 1(979) 580-246005-14-2025 Progress note Author Evelyn Robertson [facility] Note Date/Time September 14, 2024 12:08 pm [facility] [address] [place] [address] Progress Note - Wound Care 09/14/24 1158 MR#: [id number] Acct: [id number] Name: ALEENA ANDREA Rep #:[id number] : 1950 74 From: Evelyn Robertson NP DECKHAND OYSTER DREDGE-C PCP: Dr. Casie Trevizo MD Status:REG RCR [...] pressure ulcer. It was debrided twice at [facility]. She has been following for wound care [...] ischium. She has an adult daughter in [place] and an adult daughter here in [place] whoare both very involved and supportive. Progress of Wound: Right ischium wound is healed. She developed a blister from putting a heating pad on her buttocks because she was cold. About the size of a quarter now it is flat and smooth we will apply Fibracol and Adaptic on top of it to keep it from getting infected with a foam dressing, [place] SAP pad. The left great toe helix is open again and we feel it is from her laying on her stomach and she is not padding it properly and putting a shoe or a sock or a foam dressing over top of that the protected and she is opening it. We will apply fibrocal to the left helix with a [place] SAP dressing over top seems to be [...] Date Recorded By Document 09/07/24 10:22 DL [id number] 09/07/24 10:35 DL Document 09/14/24 10:49 RB [id number] 09/14/24 10:53 RB 09/07/24 09/14/24 10:22 10:49 - Today's Visit Information Type of service Follow-up Visit Follow-up Visit (Physician/SOAKING PITS SUPERVISOR (Physician/SOAKING PITS SUPERVISOR ) ) Arrival Mode Wheelchair Wheelchair Transfer [...] Date Recorded By Document 09/07/24 10:22 DL [id number] 09/07/24 10:35 DL Document 09/14/24 10:49 RB [id number] 09/14/24 10:53 RB 09/07/24 09/14/24 10:22 10:49 Wound Center Nurse 1 #17- L. Ischium -Current Size (cm) - Length 0 -Current Size (cm) - Width 0 -Current Size (cm) - Depth 0 -Total Square Cm 0 -Photo Taken Yes -Exudate Amt None Present -Wound Margin Flat & Intact -Granulation Amt Large (67-100%) -Granulation Quality Leyner -Necrosis Amt None Present (0 %) -Structure [...] Attached -Granulation Amt Medium (34-66%) -Granulation Quality Leyner -Slough/Fibrin Yes -Necrosis Amt Small (1-33%) -Necrotic [...] Amt Medium (34-66%) Medium (34-66%) -Granulation Quality Leyner Leyner -Slough/Fibrin Yes -Necrosis Amt Medium (34-66%) Small [...] Large (67-100%) Medium (34-66%) -Granulation Quality Hyper- Leyner granulation, Leyner -Slough/Fibrin Yes -Necrosis Amt None Present (0 [...] Recorded Date Recorded By Document 09/07/24 10:45 [facility] [id number] 09/07/24 10:57 BM Document 09/14/24 11:01 BMF [id number] 09/14/24 11:12 BMF 09/07/24 09/14/24 10:45 11:01 [...] Date Recorded By Document 09/07/24 11:14 DL [id number] 09/07/24 11:19 DL Document 09/14/24 11:28 DL [id number] 09/14/24 11:31 DL 09/07/24 09/14/24 11:14 11:28 [...] applied today per Nora Hollis. Facility Type [facility] Orders Sent Yes Yes Additional [...] Adaptic over top and a foam SAP [place] dressing every day follow-up in 1 week 09/14/24 1208 <Electronically signed by Evelyn Robertson NP DECKHAND OYSTER DREDGE-C> Cosigner Signature (if applicable): CC: ~ Signed [facility] Work Phone: 1(195) 414-943105-07-2025 Progress note Author Evelyn Robertson [facility] Note Date/Time September 07, 2024 12:47p m [facility] [address] [place] [id number] Progress Note - Wound Care 09/07/24 1239 MR#: [id number] Acct: [id number] Name: ALEENA ANDREA Rep #:[id number] : 1950 74 From: Evelyn Robertson NP DECKHAND OYSTER DREDGE-C PCP: Dr. Casie Trevizo MD Status:REG RCR [...] pressure ulcer. It was debrided twice at [facility]. She has been following for wound care [...] ischium. She has an adult daughter in [place] and an adult daughter here in [place] whoare both very involved and supportive. Progress [...] an ABD pad over top or a [place] SAP pad. The left great toe helix is open again and we feel it is from her laying on her stomach and she is not padding it properly and putting a shoe or a sock or a foam dressing over top of that the protected and she is opening it. We will applyfibber call to the left helix with a [place] SAP dressing over top right buttocks we [...] Date Recorded By Document 09/07/24 10:22 DL [id number] 09/07/24 10:35 DL 09/07/24 10:22 WC - Today's Visit Information Type of service Follow-up Visit (Physician/SOAKING PITS SUPERVISOR ) Arrival Mode Wheelchair Transfer Assistance Manual [...] Date Recorded By Document 09/07/24 10:22 DL [id number] 09/07/24 10:35 DL 09/07/24 10:22 Wound Center Nurse 1 #17- L. Ischium -Current Size (cm) - Length 0 -Current Size (cm) - Width 0 -Current Size (cm) - Depth 0 -Total Square Cm 0 -Photo Taken Yes -Exudate Amt None Present -Wound Margin Flat & Intact -Granulation Amt Large (67-100%) -Granulation Quality Leyner -Necrosis Amt None Present (0 %) -Structure [...] Attached -Granulation Amt Medium (34-66%) -Granulation Quality Leyner -Necrosis Amt Medium (34-66%) -Necrotic Tissue Type Adherent Slough -Structure Exposed N/A -Texture (Leyla-wound Skin Appearance) Scarring -Moisture (Leyla-wound Skin Appearance) No Abnormality -Color (Leyla-wound Skin Appearance) No Abnormality -Temperature (Lyela-wound Skin No Abnormality Appearance) (Pt Warm) -Ulcer [...] Amt Large (67-100%) -Granulation Quality Hyper- granulation, Leyner -Necrosis Amt None Present (0 %) -Structure [...] Recorded Date Recorded By Document 09/07/24 10:45 [facility] [id number] 09/07/24 10:57 [facility] 09/07/24 10:45 Wound Center Nurse [...] Date Recorded By Document 09/07/24 11:14 DL [id number] 09/07/24 11:19 DL 09/07/24 11:14 Wound Care [...] Status Wheelchair Transportation Private Auto Facility Type Assisted Care Facility Orders Sent Yes Additional Wound [...] and monitor use Skin-Prep as needed 09/07/24 1717 <Electronically signed by Evelyn Robertson NP DECKHAND OYSTER DREDGE-C> Cosigner Signature (if applicable): CC: ~ Signed [facility] Work Phone: 1(336) 576-988003-04-2025 Evaluation note* Diagnosis Onset Date Resolution Status [...] f buttock chronic October 12, 2024 10:30am [facility] Work Phone: 1(169) 275-873402-26-2025 Evaluation note* Diagnosis Onset Date Resolution Status [...] f buttock chronic September 28, 2024 1 0:30[facility] Work Phone: 1(246) 452-174701-06-2025 Telephone encounter Note* Telephone Encounter - Juliane Landa RN - 05/09/2024 3:50 PM EST Verbal order relayed to patient's nurse at [facility]. Juliane Landa RN [facility] Work Phone: 1(244) 678-420001-06-2025 Miscellaneous Notes* Telephone Encounter - Juliane Landa RN - 05/09/2024 3:50 PM EST Verbal order relayed to patient's nurse at [facility]. Juliane Landa RN * Telephone Encounter - Jim Torres MD - 05/09/2024 3:37 PM EST Ok to honor end date and remove picc. Thanks. Jim Torres MD * Telephone Encounter - Juliane Landa RN - 05/09/2024 3:22 PM EST Copat stop date 05/10/24. Can stop date be honored and PICC be removed after last dose of cefazolin? Juliane Landa RN documented in this encounterOhio[facility]-06-2025 Telephone encounter Note * Telephone Encounter - Jim Torres MD - 05/09/2024 3:37 PM EST Ok to honor end date and remove picc. Thanks. Jim Torres MD [facility] Work Phone: 1(676) 406-944801-06-2025 Telephone encounter Note* Telephone Encounter - Juliane Landa RN - 05/09/2024 3:22 PM EST Copat stop date 05/10/24. Can stop date be honored and PICC be removed after last dose of cefazolin? Juliane Landa RN [facility]01-02-2025 History of Present illness Narrative* Christopher Wells RPh - 05/05/2024 2:51 PM ESTSummary: OPAT Management [facility] OPAT Documentation Note OPAT Pharmacist Lab Review [...] RPh 05/05/2024 2:51 PM documented in this encounterOhiohealth [facility]01-02-2025 NoteHNO ID: [id number] Author: CHRISTOPHER WELLS RPh Service: ? Author Type: Pharmacist Type: Progress Notes Filed: 05/05/2024 14:53 Note Text: Summary: OPAT Management [facility] OPAT Documentation Note OPAT Pharmacist Lab Review [...] this Encounter (in minutes): 5-10 Christopher Wells [facility] 05/05/2024 2:51 [facility]01-02-2025 Telephone encounter Note* Telephone Encounter - Juliane Landa RN - 05/05/2024 2:32 PM EST External copat lab results entered. Juliane Landa RN [facility] Work Phone: 1(338) 228-518201-02-2025 Miscellaneous Notes* Telephone Encounter - Juliane Landa RN - 05/05/2024 2:32 PM EST External copat lab results entered. Juliane Landa RN documented in this encounterOhiohealth [facility]12-20-2024 NoteHNO ID: [id number] Author: BONITA LAMBERT RN Service: Care Management Author Type: Registered Nurse Type: Care Mgt Progress Note Filed: 04/22/2024 16:15 Note Text: CARE MANAGEMENT DISCHARGE NOTE SERVICE DATE: April 22, 2024 SERVICE TIME: 4:15 PM Admission Date: 04/13/2024 LOS: 8 days Discharge Arrangement Discharge Arrangement: Snf Facility Was an expedited discharge program used?: No Provider Name: [place] Adtuitive Caregiver Assessment Caregiver is ready, willing and able to meet the patient's needs as recommended by the inter-professional team: Yes Name of Caregiver: [facility] Transportation Arrangements Transportation Arrangements: Car Handoff Communication: Handoff to: Primary Care Physician;Other Caregiver Primary Care Physician Name/Phone: summary of care to PCP, Cara Arce Other Caregiver Name/Phone: [facility] is aware of DC, RN to call report Additional Information: Patient is discharging to [facility]. Her daughter Bela to transport via private w/c van. Met with patient in room. She is aware of plan for DC and is in agreement. SIGNATURE: Bonita Lambert RN PATIENT NAME: Aleena Andrea DATE: April 22, 2024 TIME: 4:13 [facility]12-20-2024 NoteHNO ID: [id number] Author: FANI ALMODOVAR griselda Service: Pharmacy Author [...] been addressed by LIP. Fani Almodovar PharmD, [facility] Pager: [phone] 04/22/2024 12:57 PM Medication List START taking [...] these medications oxyCODONE 15 mg immediate release [facility]12-19-2024 NoteHNO ID: [id number] Author: FRANCISCA SWANSON MD Service: Pain Management [...] CAD, CHF, osteoporosis, depression presented 04/13 from [place] ED for increased right hip pain and progressive wounds. CTAP from [place] showed right sided 8.5x8.3cm subcutaneous abscess extending [...] Home pain regimen managed by [facility] includes intrathecal pump (Dilaudid, baclofen) oxycodone [...] (PWD) 1 mg patient's own pump - [facility] placeholder INTRATHECAL CONTINUOUS Moni Worley [...] , Rfl: POLYETHYLENE GL (more content not included)...[facility] 04-21-2024 NoteHNO ID: [id number] Author: GUSTABO SALDIVAR MD Service: Hospital Medicine [...] pump will be changed tomorrow followed by [place] to [place]. Signature: Gustabo Saldivar MD Date: 04/21/2024 Time: 1:36 PM [facility] PROGRESS NOTE PATIENT NAME: Aleena Andrea ADMITTED [...] amitriptyline, trazodone, tizanidine, naproxen Patient presented to [facility] from [place] ED by EMS for hip pain for 1 week with progressive wounds on R hip. CTAP from [place] showed right sided 8.5x8.3cm subcutaneous abscess extending [...] pain pump tomorrow prior to discharging to [place] to which she expressed agreement. Pertinent results today: Afebrile, HR normal, MAP 79, SpO2 99 on RA Melon Packer Updates Gen Surg -No plans for further [...] Status: She is a (more content not included)...[facility]12-18-2024 NoteHNO ID: [id number] Author: BONITA LAMBERT RN Service: Care Management [...] 05/10. DC plan is to return to [facility] SNF. Anticipate DC to SNF tomorrow. Patient is aware and states her daughter will be able to transport her tomorrow evening. SIGNATURE: Bonita Lambert RN PATIENT NAME: Aleena Andrea DATE: April 20, 2024 TIME: 4:17 [facility]12-18-2024 NoteHNO ID: [id number] Author: FRANCISCA SWANSON MD Service: Pain Management [...] CAD, CHF, osteoporosis, depression presented 04/13 from [place] ED for increased right hip pain and progressive wounds. CTAP from [place] showed right sided 8.5x8.3cm subcutaneous abscess extending [...] (PWD) 1 mg patient's own pump - [facility] placeholder INTRATHECAL CONTINUOUS Moni Worley [...] Rfl: , 04/14/2024 gabape (more content not included)...[facility]12-18-2024 Note HNO ID: [id number] Author: YUKO PUTNAM RN Service: PICC Team Author Type: Registered Nurse Type: Procedures Filed: 04/20/2024 09:56 Note Text: PICC NURSE INSERTION NOTE DATE OF PROCEDURE: April 20, 2024 TIME OF PROCEDURE: 0930 ORDERING PHYSICIAN: maurizio INFORMED CONSENT: Obtained per hospital policy. INDICATION FOR LINE PLACEMENT: COPAT CONDITION OF LINE PLACEMENT: Sterile PRIMARY PROCEDURALIST: Alba Huang RN DIABETES TERRITORY MANAGER: Yuko Hauser RN PRE-PROCEDURE REVIEW ALLERGIES Allergen [...] Hauser RN CATHETER PLACEMENT Brand: BARD Lot: [id number] Number of Lumens: 1 Type of PICC: Power Injectable PICC Lumen Size: 4 Amharic PLACEMENT TECHNIQUE Lidocaine: Yes, Lidocaine 1% Volume [...] Given to patient QUESTIONS or PROBLEMS: Call [phone] SIGNATURE: Yuko Hauser RN PATIENT NAME: Aleena Andrea DATE: April 20, 2024 TIME: 9:44 AM PAGER/CONTACT PHONE:[facility]12-18-2024 NoteHNO ID: [id number] Author: JIM TORRES MD Service: ? Author Type: Physician Type: Progress Notes Filed: 04/20/2024 08:36 Note Text: [facility] Outpatient Parenteral Antimicrobial Therapy (OPAT) Start Form Patient Info Patient MRN Patient Name Address Date of [id number] Aleena Andrea [address] [facility] [address] [address] [facility] [address] 1950 Start Date 04/20/2024 Physician Group Cc_kenneth [...] MD Address [address] [place], [place] [id number] Prescribing Provider's signature - electronically signed by Jim Torres MD on 04/20/24 at 8:36 AMR[facility]12-18-2024 History of Present illness Narrative* Jim Torres MD - 04/20/2024 8:35 AM EST [facility] Outpatient Parenteral Antimicrobial Therapy (OPAT) Start Form Patient Info Patient MRN Patient Name Address Date of [id number] Aleena Andrea [address] [facility] [address] [id number] 1950 Start Date 04/20/2024 Physician Group Lucia_kenneth [...] Treatment Course Jim Torres MD Address [address] [place] [id number] Prescribing Provider's signature - electronically signed by Jim Torres MD on 04/20/24 at 8:36 AM documented in this encounterOhiohealth [facility]12-18-2024 NoteO ID: [id number] Author: GUSTABO SALDIVAR MD Service: Hospital Medicine Author Type: Resident Type: Progress Notes Filed: 04/20/2024 19:44 Note Text: Attestation signed by Gustabo Saldivar MD at 04/20/2024 7:44 PM Attending Note I personally saw and examined the patient. I reviewed the resident's note. I agree with the resident's assessment and plan unless otherwise noted. Signature: Gustabo Saldivar MD Date: 04/20/2024 Time: 7:44 PM [facility] PROGRESS NOTE PATIENT NAME: Aleena Andrea ADMITTED [...] amitriptyline, trazodone, tizanidine, naproxen Patient presented to [facility] from [place] ED by EMS for hip pain for 1 week with progressive wounds on R hip. CTAP from [place] showed right sided 8.5x8.3cm subcutaneous abscess extending [...] 8.3 -> 8 Rare s aueus -Pansensitive Melon Packer Updates Gen Surg - S/P OR for [...] obvious wounds or def (more content not included)...[facility]12-17-2024 NoteHNO ID: [id number] Author: FANI ALMODOVAR [facility] Service: Pharmacy Author Type: Pharmacist Type: Plan of Care Filed: 04/19/2024 15:00 Note Text: PHARMACY MEDICATION REVIEW Patient Name: Aleena Andrea : 1950 The following medications were updated within the [employer] medication list: Medications ADDED to [employer] medication list Fiber one gummie - 1 daily Medications CHANGED on [employer] medication list Miralax 1 dose daily prn constipation Duloxetine 30 mg daily AM Duloxetine 60 mg daily PM APAP 325 mg - 2 qid prn pain Pain Pump Hydromorphone / baclofen Medications REMOVED from [employer] medication list Bisacodyl Amitriptyline Tizanidine Triamcinolone Baclofen tablet Additional comments: met with pt at bedside and reviewed [facility] records. The below information represents the best possible medication history: Yes Medication history completed by: Pharmacist: Fani Almodovar [facility] Source of history: Patient: Reliability of source: Appears reliable, clearly identified: Medication name, Medication dose, Medication route, Medication frequency, Timing of last dose, and Indications, Outside hospital records - Name:[place], [facility] records, Care Everywhere records, and [facility] Medication nonadherence identified: No barriers noted Reconciliation completed: Yes Completed by: IM Team All [employer] medications addressed by LIP Patient interested in Bedside Delivery Services or using OP Pharmacy at discharge? Unable to assess Preferred outpatient pharmacy: [facility] [place] [place] [address] [address] - [phone] [facility] Allergies: Ziconotide Other: See Comments [...] at bedtime. Facility-Administered Medications: None Charline MontanezD, [facility] 04/19/2024[facility]12-17-2024 NoteHNO ID: [id number] Author: PATRICK SHAIKH APRN.CRNA Service: Anesthesiology Author Type: Nurse Kettle Girl Type: Anesthesia Procedure Notes Filed: 04/19/2024 11:12 [...] April 19, 2024 TIME: 11:11 AM CSN: [id number] Community Hospital12-17-2024 NoteHNO ID: [id number] Author: FRANCISCA SWANSON MD Service: Pain Management [...] CAD, CHF, osteoporosis, depression presented 04/13 from [place] ED for increased right hip pain and progressive wounds. CTAP from [place] showed right sided 8.5x8.3cm subcutaneous abscess extending [...] for SBO. Home pain regimen managed by [place] [facility] includes intrathecal pump (Dilaudid, baclofen) oxycodone [...] 3.375 g INTRAVENOUS q 6 H Moni Worely MD 100 mL/hr at 04/19/24 1359 3.375 [...] by mouth four times (more content not included)...[facility]12-17-2024 NoteHNO ID: [id number] Author: GUSTABO SALDIVAR MD Service: Hospital Medicine [...] Saldivar MD Date: 04/19/2024 Time: 5:03 PM [facility] PROGRESS NOTE PATIENT NAME: Aleena Andrea ADMITTED [...] amitriptyline, trazodone, tizanidine, naproxen Patient presented to [facility] from [place] ED by EMS for hip pain for 1 week with progressive wounds on R hip. CTAP from [place] showed right sided 8.5x8.3cm subcutaneous abscess extending [...] 94 on RA Hemoglobin 8.3 Micki cardona Melon Packer Updates Gen Surg IR noted reviewed, unable [...] weight. HENT: Head: Norm[place] (more content not included)...[facility] 04-18-2024 NoteHNO ID: [id number] Author: JENNIFER JEAN MD Service: General Surgery [...] for OR tomorrow. Jennifer Jean [facility]12-16-2024 NoteHNO ID: [id number] Author: BONITA LAMBERT RN Service: Care Management Author Type: Registered Nurse Type: Care Mgt Progress Note Filed: 04/18/2024 14:18 Note Text: CARE MANAGEMENT PROGRESS NOTE SERVICE DATE: 04/18/2024 SERVICE TIME: 2:13 PM LOS: 4 days Post-Acute Discharge Planning Patient Goal(s): Better mobility, Increase strength, General wellness [place] of Choice Explained: [place] of Choice Given: Yes Level of Care Discussed: Snf Facility Discharge Planning Participant(s): Patient Patient/Family Comments: Anticipated # of Days Until Discharge: 3 Transport at Discharge: Transportation Arrangements: To Be Determined Needs Prior to Discharge: Needs Prior to Discharge: To Be Determined, Discharge Transportation Post-Acute Discharge Plan: Chart reviewed. Patient continues on IV abx. Anticipate CoPAT at DC, awaiting final ID recs. DC plan is to return to [facility] SNF. Anticipate patient will need transport given unable to transfer during last PT session. SIGNATURE: Bonita Lambert RN PATIENT NAME: Aleena Andrea DATE: April 18, 2024 TIME: 2:13 [facility]12-16-2024 NoteHNO ID: [id number] Author: GUSTABO SALDIVAR MD Service: Hospital Medicine Author Type: Resident Type: Progress Notes Filed: 04/18/2024 20:02 Note Text: Attestation signed by Gustabo Saldivar MD at 04/18/2024 8:02 PM Attending Note I personally saw and examined the patient. I reviewed the resident's note. I agree with the resident's assessment and plan unless otherwise noted. 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 CTAP from [place] showed right sided 8.5x8.3cm subcutaneous abscess extending [...] reactive to light. Cardiovascular: (more content not included)...[facility] 04-17-2024 NoteHNO ID: [id number] Author: CASE PHAN MD Service: Hospital Medicine Author Type: Resident Type: Progress Notes Filed: 04/17/2024 19:40 Note Text: Attestation signed by Case Phan MD at 04/17/2024 7:40 PM [facility] MEDICINE SERVICE ATTENDING ATTESTATION: I saw and [...] for additional surgical recommendations. Case Phan MD [facility] PROGRESS NOTE PATIENT NAME: Aleena Andrea ADMITTED [...] amitriptyline, trazodone, tizanidine, naproxen Patient presented to [facility] from [place] ED by EMS for hip pain for 1 week with progressive wounds on R hip. CTAP from [place] showed right sided 8.5x8.3cm subcutaneous abscess extending [...] HB 8.0* 7.6* 8.4 (more content not included)...[facility] 04-17-2024 NoteHNO ID: [id number] Author: FRANCISCA SWANSON MD Service: Pain Management [...] CAD, CHF, osteoporosis, depression presented 04/13 from [place] ED for increased right hip pain and progressive wounds. CTAP from [place] showed right sided 8.5x8.3cm subcutaneous abscess extending [...] 90 mg b (more content not included)... [facility]12-14-2024 NoteHNO ID: [id number] Author: FRANCISCA SWANSON MD Service: Pain Management [...] CAD, CHF, osteoporosis, depression presented 04/13 from [place] ED for increased right hip pain and progressive wounds. CTAP from [place] showed right sided 8.5x8.3cm subcutaneous abscess extending [...] 15 mg ORAL q 4 H PRN Enrqiue Olsen MD, MD 15 mg at 04/16/24 [...] (PWD) 1 mg patient's own pump - [facility] placeholder INTRATHECAL CONTINUOUS Enrique Olsen [...] 650 mg by m (more content not included)...[facility]12-14-2024 NoteHNO ID: [id number] Author: CASE PHAN MD Service: Hospital Medicine Author Type: Resident Type: Progress Notes Filed: 04/16/2024 21:01 Note Text: Attestation signed by Case Phan MD at 04/16/2024 9:01 PM [facility] MEDICINE SERVICE ATTENDING ATTESTATION: I saw and [...] ID at this time. Case Phan MD [facility] PROGRESS NOTE PATIENT NAME: Aleena Andrea ADMITTED [...] amitriptyline, trazodone, tizanidine, naproxen Patient presented to [facility] from [place] [facility] by EMS for hip pain for 1 week with progressive wounds on R hip. CTAP from [place] showed right sided 8.5x8.3cm subcutaneous abscess extending [...] acute distress. Appearance: Norm (more content not included)...[facility] 04-16-2024 NoteHNO ID: [id number] Author: NOTE, INTERFACE, ? Service: ? Author Type: ? Type: Progress Notes Filed: 04/21/2024 16:04 Note Text: Epic Scheduled Downtime: 04/16/2024 1:00:00 AM to 04/16/2024 2:52:17 [facility]12-13-2024 NoteHNO ID: [id number] Author: BONITA LAMBERT, RN Service: Care Management [...] by: Per Department Practice Potential Transition Plans Snf Facility/Intermediate Care Facility Advance Directives Current Advance Directive: Health Care Power of Stone Carriage Operator In Chart: No Current Living Arrangements and [...] Goal(s): Better mobility, Increase strength, General wellness [place] Explained: [place] [facility] [place] Given: Yes (patient would like to return to [facility]) Level of Care Discussed: Snf Facility Are you interested in bedside delivery [...] with patient in room. Patient lives at [facility] in the Independent Living. She was admitted from the SNF at [place] where she states she has been since [...] for return referral to be sent to [facility]. SIGNATURE: Bonita Lambert RN PATIENT NAME: Aleena Andrea DATE: April 15, 2024 TIME: 11:42 [facility]12-13-2024 NoteHNO ID: [id number] Author: YISEL MOSES APRN.MAJOR GIFTS DIRECTOR Service: Pain Management Author Type: Nurse Specialist Type: Progress Notes Filed: 04/15/2024 11:42 Note Text: INPATIENT PAIN MANAGEMENT NOTE [facility] Aleena Andrea [id number]* Pain Management Diagnoses: Subcutaneous ischial/rectal abscess, history [...] Info per notes: The pump is a [employer] Synchromed II. Pump capacity is 20 cc. [...] CAD, CHF, osteoporosis, depression presented 04/13 from [place] ED for increased right hip pain and progressive wounds. CTAP from [place] showed right sided 8.5x8.3cm subcutaneous abscess extending [...] activity was identified. 04/15/2024 by Yisel Moses APRN.MAJOR GIFTS DIRECTOR Overdose Risk Score from [facility]: 130 71 [...] myelitis, and encephalomyelitis Unspeci (more content not included)...[facility]12-13-2024 NoteHNO ID: [id number] Author: CASE PHAN MD Service: Hospital Medicine Author Type: Resident Type: Progress Notes Filed: 04/15/2024 21:24 Note Text: Attestation signed by Case Phan MD at 04/15/2024 9:24 PM (Updated) [facility] MEDICINE SERVICE ATTENDING ATTESTATION: I saw and [...] if stooling not improving. Case Phan MD [facility] PROGRESS NOTE PATIENT NAME: Aleena Andrea ADMITTED [...] tizanidine, naproxen Patient presented to [facility] from [place] [facility] by EMS for hip pain for 1 week with progressive wounds on R hip. CTAP from [place] showed right sided 8.5x8.3cm subcutaneous abscess extending [...] membranes are moist. E (more content not included)...[facility]12-12-2024 NoteHNO ID: [id number] Author: NIXON MARTIN RN Service: Nursing Author Type: Registered Nurse Type: Nursing Progress Note Filed: 04/14/2024 17:12 Note Text: [facility]barran[facility]2024 NoteHNO ID: [id number] Author: CASE PHAN MD Service: Hospital Medicine Author Type: Resident Type: Progress Notes Filed: 04/14/2024 21:23 Note Text: Attestation signed by Case Phan MD at 04/14/2024 9:23 PM [facility] HOSPITAL MEDICINE SERVICE ATTENDING ATTESTATION: I [...] infection. Pain management consulted. Case Phan MD [facility] PROGRESS NOTE PATIENT NAME: Aleena Andrea ADMITTED [...] amitriptyline, trazodone, tizanidine, naproxen Patient presented to [facility] from [place] [facility] by EMS for hip pain for 1 week with progressive wounds on R hip. CTAP from [place] showed right sided 8.5x8.3cm subcutaneous abscess extending [...] per patient request Patient will follow up [place] pain management as planned; she was due [...] normal. No respirato (more content not included)... [facility]12-03-2024 [facility]11-16-2021 Miscellaneous Notes* Telephone Encounter - [...] she stay at 25 mg. Call back [phone]. * Telephone Encounter - Nidia Ken CMA - 01/24/2021 1:06 PM EDT Called and spoke with Rosibel at [facility] and cancelled prescription for the amitriptyline. * Telephone Encounter - Nidia Ken CMA - 01/24/2021 12:08 PM EDT Called and spoke with pt she stated understanding on the increase with the amitriptyline. She askedfor the new prescription to be sent over to [facility] in [place] instead of the [facility]. Will que [...] advise on next steps. documented in this [id number] Miscellaneous Notes* Telephone Encounter - Gi Frances [...] she stay at 25 mg. Call back [phone]. * Telephone Encounter - Nidia Ken CMA - 01/24/2021 1:06 PM EDT Called and spoke with Rosibel at [facility] and cancelled prescription for the amitriptyline. * Telephone Encounter - Nidia Ken CMA - 01/24/2021 12:08 PM EDT Called and spoke with pt she stated understanding on the increase with the amitriptyline. She askedfor the new prescription to be sent over to [facility] in [place] instead of the [facility]. Will que [...] advise on next steps. documented in this [id number] Miscellaneous Notes* Telephone Encounter - Suma Fishman RN - 03/18/2021 1:25 PM EST Received a voicemail from patient stating she is calling to update Dr Frnaces that she is taking the amitriptyline and it is doing nothing for her pain. She has 50 mg at home, should she take these or go ahead and refill her 25 mg that she has on hand. Or should she stay at 25 mg. Call back [phone]. * Telephone Encounter - Nidia Ken CMA - 01/24/2021 1:06 PM EDT [facility] the amit[facility]. * Telephone Encounter - Nidia Ken CMA - 01/24/2021 12:08 PM EDT Called and spoke with pt she stated understanding on the increase with the amitriptyline. She askedfor the new prescription to be sent over to [facility] in [place] instead of the [facility]. Will que [...] advise on next steps. documented in this [id number] Miscellaneous Notes* Telephone Encounter - Nidia Ken CMA - 01/24/2021 1:06 PM EDT [facility] and [facility] for the amitriptyline. * Telephone Encounter - Nidia Ken CMA - 01/24/2021 12:08 PM EDT Called and spoke with pt she stated understanding on the increase with the amitriptyline. She askedfor the new prescription to be sent over to [facility] in [place] instead of the [facility]. Will que [...] advise on next steps. documented in this [id number] Instructions* Patient Instructions* Analilia Oconnor DO - [...] months with Dr. Frances documented in this [id number] History of Present illness Narrative* Analilia Oconnor DO - 10/04/2020 1:17 PM EDT [facility] Clinic Follow Up Note [...] Date: 10/04/2020. Comparison Study Date: n/a. Study Location:[place], [place] protocol used: yes. Scanner Strength: 3T, [...] Date: 10/04/2020. Comparison Study Date: n/a. Study Location:[place], [place] protocol used: yes. Scanner Strength: 3T, [...] visit. 3. Please sign up for the [employer] patient portal. [employer] provides assess to your medical record and test results, allows you to communicate with your care providers, and allows you to complete patient questionnaires prior to each clinic visit. 4. When your testing is completed, your [place] care team will review all results and contact you if a finding requires follow up before your next visit. Otherwisee, we will discuss your test results [id number] at your next clinic visit. Many of your testing results, however, can be reviewed online through [employer]. PATIENT AND CAREGIVER EDUCATION I spent 30 [...] Neuroimmunology Fellow (PGY5) Neuroimmunology & Multiple Sclerosis [facility] Sclerosis [address], [place], [place] [email or web address] I have seen and examined patient [...] MPH System Chief Neuroimmunology & Multiple Sclerosis [facility] Sclerosis [place] [address] [place] [address] Rd[address], [place], [place] [email or web address] documented in this [id number] Instructions* Patient Instructions* Analilia Oconnor DO - 09/10/2020 1:27 PM EDT Aleena Andrea is a pleasant 70 y.o. Right-handed female referred for evaluation of andtreatment recommendations for Idiopathic Thoracic Transverse Myelitis. I recommend the following plan: PLAN 1. We will request initial 2001 MRI imaging and neurology records from [facility]. 2. Given persistent pain despite multiple [...] visit. 3. Please sign up for the [employer] patient portal. [employer] gives you controlled access to the same [employer] medical records your [facility] care team use, via browser or mobile kaya (for iOS and Android). Its allows you to review some of your testing results, and provides you with a communication link to your care providers. 4. Many of your test results can be reviewed online at any time through [employer]. Your [place] care team will review all results, but will only contact you if a finding requires urgent medical attention. Your Care team will always discuss your test results with you [id number] at your next clinic. I spent 90 [...] Neuroimmunology Fellow (PGY5) Neuroimmunology & Multiple Sclerosis [facility] Sclerosis [place] [address], [place], [place] [email or web address] documented in this [id number] History of Present illness Narrative* Analilia Oconnor DO - 09/10/2020 11:57 AM EDT [facility] [place] NEW CONSULTATION 09/10/2020 I had the pleasure of evaluating Aleena Andrea in initial outpatient neurologic consultation at [facility] Sclerosis [place] today, 09/10/2020. As you know, she is a pleasant 70 y.o. Right-handed female referred by Dr. Beck for evaluation of and treatment recommendations for Tr ansverse Myelitis. She is accompanied today by her friend who helped participate in her history. Inpreparation for today's consultation I have personally reviewed hard copies of neuroimaging studies, relevant clinic notes and lab tests, as well as the [facility] [place] mobile new patient questionnaire. Chief Complaint: Transverse Myelitis [...] ended up going to the ED at [facility] and states that within a couple [...] No truncal ataxia noted with sitting. Normal aosqah-[id number] and fine finger movements without evidence of [...] MRI imaging and neurology records from [facility]. 2. Given persistent pain despite multiple [...] visit. 3. Please sign up for the [employer] patient portal. [employer] gives you controlled access to the same [facility] [employer] medical records your [facility] care team use, via browser or mobile kaya (for iOS and Android). Its allows you to review some of your testing results, and provides you with a communication link to your care providers. 4. Many of your test results can be reviewed online at any time through [employer]. Your [place] care team will review all results, but will only contact you if a finding requires urgent medical attention. Your Care team will always discuss your test results with you [id number] at your next clinic. I spent 90 [...] Neuroimmunology Fellow (PGY5) Neuroimmunology & Multiple Sclerosis [facility] Sclerosis [address], [place], [place] [email or web address] I have seen and examined [...] MPH System Chief Neuroimmunology & Multiple Sclerosis [facility] [address] [place] [address] Rd[address], [place], [place] [email or web address] documented in [facility]* Diagnosis Transverse myelitis (HCC)- Primary Other causes of myelitis Neuropathic pain Vitamin D deficiency documented [facility] Diagnosis Transverse myelitis (HCC) Other causes of myelitis [facility] Diagnosis Transverse myelitis (HCC)- Primary Other causes of myelitis Neuropathic pain Vitamin D deficiency Other specified disorders involving the immune mechanism, 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) documented in this encounter [facility]* Diagnosis Neuropathic pain- Primary documented in this encounter [facility]* Diagnosis Neuropathic pain- Primary documented in [facility]* Diagnosis Neuropathic pain- Primary documented in [facility]* Diagnosis Neuropathic pain- Primary [facility]* Diagnosis Onset Date Resolution Status Pressure [...] bladder chronic Transverse myelitis chronic Urinary retention [facility] Work Phone: Evaluation note* Diagnosis Onset [...] bladder chronic Transverse myelitis chronic Urinary retention [facility] Work Phone: Evaluation note* Diagnosis Onset [...] bladder chronic Transverse myelitis chronic Urinary retention [facility] Work Phone: Evaluation note* Diagnosis Onset [...] chronic Transverse myelitis chronic Urinary retention chronic [facility] Work Phone: Evaluation note* Diagnosis Onset Date [...] bladder chronic Transverse myelitis chronic Urinary retention [facility] Work Phone: Evaluation note* Diagnosis Onset Date Resolution Status Anxiety and depression chron ic Chronic back pain chronic Chronic constipation chronic Neurogenic bladder chronic Paraplegia chronic Chronic back pain chronic Chronic constipation chronic Neurogenic bladder chronic Paraplegia chronic Iron (Fe) deficiency anemia acute Chronic constipation chronic GI bleed [facility] Work Phone: Evaluation note* Diagnosis Onset Date Resolution Status Anxiety and depression chron ic Chronic back pain chronic Chronic constipation chronic Neurogenic bladder chronic Paraplegia chronic Chronic back pain chronic Chronic constipation chronic Neurogenic bladder chronic Paraplegia chronic Chronic constipation chronic Iron deficiency anemia due to chronic blood loss [facility] Work Phone: Evaluation note* Diagnosis Onset Date Resolution Status Chronic back pain chronic Chronic constipation chronic Neurogenic bladder chronic Paraplegia chronic Chronic constipation chronic Iron deficiency anemia due to chronic blood loss chronic Iron deficiency anemia due to chronic blood loss [facility] Work Phone: Evaluation note* Diagnosis Onset Date Resolution Status Iron deficiency anemia due to chronic blood loss chronic Intestinal ulcer acute Chronic constipation chronic Iron deficiency anemia due to chronic blood loss [facility] Work Phone: Evaluation note* Diagnosis Onset Date Resolution Status Iron deficiency anemia due to chronic blood loss chronic Chronic constipation chronic Intestinal ulcer [facility] Work Phone: Evaluation note* Diagnosis Onset Date Resolution Status Iron deficiency anemia due to chronic blood loss [facility] Work Phone: Reason for referral (narrative)No reason for referral information availableWMary [facility] Work Phone: Instructions Name Dates Details [...] myelitis (HCC) Paraplegia (HCC) Cara Beck DO [address] [place] [address] Gi Frances MD [address] [place] [address] Status Reason Specialty Diagnoses / Procedures Referred By Contact Referred To Contact Authorized Radiology Diagnoses Transverse myelitis (HCC) Procedures MR Thoracic Spine With And Without Contrast Gi Frances MD [address] [place] [address] Status Reason Specialty Diagnoses / Procedures Referred By Contact Referred To Contact Authorized Radiology Diagnoses Transverse myelitis (HCC) Procedures MR Cervical Spine With And Without Contrast Gi Frances MD [address] [place] [address] Status Reason Specialty Diagnoses / Procedures Referred By Contact Referred To Contact Closed Radiology Diagnoses Transverse myelitis (HCC) Procedures MR Cervical Spine With And Without Contrast Gi Frances MD [address] [place] [address] Assessments Diagnosis Transverse myelitis (HCC)- Primary Other causes of myelitis Paraplegia (HCC) Paraplegia Advance Directives No Advanced Directives Records Found Date Activated Date Inactivated Comments 04/14/2024 5:13 AM 04/22/2024 9:56 PM Question Answer Comments Full Code Order Discussed With: Patient Documents on File Type Date Recorded Patient Machine Feeder Raw Stock Expl anation Advance Directives and Living Will Documents on File Type Date Recorded Patient Machine Feeder Raw Stock Expl anation Advance Directives and Living Will Documents on File Type Date Recorded Patient Machine Feeder Raw Stock Expl anation Advance Directives and Livin g Will 10/04/2020 7:42 AM Documents on File Type Date Recorded Patient Machine Feeder Raw Stock Expl anation Advance Directives and Livin g Will 10/04/2020 7:42 AM Advance Directive Response Recorded Date/ Time Advance Directives Yes April 12:39pm Living Will Yes June 19 9:07am Power of Stone Carriage Operator Yes June 19, 2021 9:07am Advance Directive Response Recorded Date/ Time Advance Directives Yes April 12:39pm Living Will No December 26 11:54am Power of Stone Carriage Operator No December 26 11:54am Advance Directive Response Recorded Date/ Time Advance Directives Yes December 27, 2021 9:14am Living Will No December 27 9:14am Power of Stone Carriage Operator No December 27 9:14am Advance Directive Response Recorded Date/ Time Advance Directives Yes January 3:45pm Living Will No January 09 3:45pm Power of Stone Carriage Operator No January 09, 2022 3:45pm Advance Directive Response Recorded Date/ Time Advance Directives Yes December 27, 2021 9:14am Living Will No March 03 12:22pm Power of Stone Carriage Operator No March 03, 2022 12:22pm Advance Directive Response Recorded Date/ Time Advance Directives Yes December 27, 2021 8:14am Living Will No March 03 11:22am Power of Stone Carriage Operator No March 03, 2022 11:22am Advance Directive Response Recorded Date/ Time Name of Medical Power of Stone Carriage Operator MERLINE CERON March 19, 2023 9:22am Advance Directives Yes December 27, 2021 8:14am Living Will Yes November 16th, 2 023 9:22am Power of Stone Carriage Operator Yes March 19, 2023 9:22am Date Activated Date Inactivated Comments 04/14/2024 5:13 AM Advance Directive Response Recorded Date/ Time Living Will Yes March 19, 023 10:22am Do you have a Healthcare Power of Stone Carriage Operator? Yes March 19, 2023 10:22am Living Will Yes January 04 024 3:03pm Do you have a Healthcare Power of Stone Carriage Operator? Yes January 05, 2024 3:03pm Living Will Yes June 04 2:56am Do you have a Healthcare Power of Stone Carriage Operator? Yes June 04, 2024 2:56am Living Will Yes July 02, 2024 2:12am Do you have a Healthcare Power of Stone Carriage Operator? Yes July 02, 2024 2:12am Living Will Yes August 02, 2024 12:45am Do you have a Healthcare Power of Stone Carriage Operator? Yes August 02, 2024 12:45am Living Will Yes September 01, 2024 12 :36am Do you have a Healthcare Power of Stone Carriage Operator? Yes September 01, 2024 12:36am Advance Directives Yes December 27, 2021 9:14am Advance Directive Response Recorded Date/ Time Living Will Yes March 19 10:22am Do you have a Healthcare Power of Stone Carriage Operator? Yes March 19, 2023 10:22am Living Will Yes January 04 3:03pm Do you have a Healthcare Power of Stone Carriage Operator? Yes January 05, 2024 3:03pm Living Will Yes July 02, 2024 2:12am Do you have a Healthcare Power of Stone Carriage Operator? Yes July 02, 2024 2:12am Living Will Yes August 02, 2024 12:45am Do you have a Healthcare Power of Stone Carriage Operator? Yes August 02, 2024 12:45am Living Will Yes September 01, 2024 12 :36am Do you have a Healthcare Power of Stone Carriage Operator? Yes September 01, 2024 12:36am Living Will Yes October 02, 2024 1 2:38am Do you have a Healthcare Power of Stone Carriage Operator? Yes October 02, 2024 12:38am Advance Directives Yes December 27, 2021 9:14am Advance Directive Response Recorded Date/ Time Living Will Yes September 01, 2024 12 :36am Do you have a Healthcare Power of Stone Carriage Operator? Yes September 01, 2024 12:36am Living Will Yes October 02, 2024 1 2:38am Do you have a Healthcare Power of Stone Carriage Operator? Yes October 02, 2024 12:38am Advance Directives [...] (HCC) Paraplegia (HCC) Kiran, Cara DavidsonDO [address] [place] [id number] Gi Frances MD [address] [place] [address] [place] [address] Status Reason Specialty Diagnoses / Procedures Referred By Contact Referred To Contact Closed Radiology Diagnoses Transverse myelitis (HCC) Procedures MR Cervical Spine With And Without Contrast Gi Frances MD [address] [place] [id number] [place] [address] Reason Onset Date Comments Medication Refill 03/18/2021 Reason Comments CoPat Start Reason Comments Results Reason Comments CoPat Management Reason Comments CoPat Stop Care Teams (unrecognized sec tion and content) Oncology Specialist Relationship Specialty Start Date End Date Kiran Cara DO Stuart [address] [place] [id number] PCP - General Family Medicine 09/10/20 Oncology Specialist Relationship Specialty Start Date End Date Cara Beck DO [address] [place] [id number] PCP - General Family Medicine 09/10/20 Oncology Specialist Relationship Specialty Start Date End Date Cara Beck DO [address] [place] [id number] PCP - General Family Medicine 09/10/20 Oncology Specialist Relationship Specialty Start Date End Date Cara Beck DO [address] [place] [id number] PCP - General Family Medicine 09/10/20 Team [...] Active Member Role Status Dates Dr. Stef Eiwng DO Attending Provider, Other Prov ider Active [...] Dr. Cara Arce MD Family Provider Active [facility] Primary Care Provider A ctive Team Status: Inactive Member Role Status Dates Dr. Casie Trevizo MD Referring Provider Active Dr. Stef Ewing DO Attending Provider Active Cara PALM MD Primary Care Provider Active Team Status: Inactive Member Role Status Dates Cara PALM MD Primary Care Provider Active Dr. Stef Ewing DO Attending Provider Active Team Status: Inactive Member Role Status Dates [facility] Primary Care Provider A ctive Dr. Casie Trevizo MD Attending Provider, Referring P dominique Active Team Status: Active Member Role Status Dates [facility] Primary Care Provider A ctive Ingrid Grimaldo NP, [employer]-C Attending Provider, Referrin g Provider Active Team [...] Corona MD Attending Provider, Referring Provider Active Oncology Specialist Relationship Specialty Start Date End Date Cara Arce MD [address] [place] [address] PCP - General 03/06/01 Oncology Specialist Relationship Specialty Start Date End Date Cara Arce MD [address] [place] [address] PCP - General 03/06/01 Oncology Specialist Relationship Specialty Start Date End Date Cara Arce MD [address] [place] [address] PCP - General 03/06/01 Oncology Specialist Relationship Specialty Start Date End Date Cara Arce MD [address], [place] [id number] PCP - General 03/06/01 Team Status: Active Member Role Status Dates Dr. Casie Trevizo MD Primary Care Provider Active Team Status: Active Member Role Status Dates Dr. Casie Trevizo MD Primary Care Provider Active Start: June 08, 2024 Dr. Casie Trevizo MD Referring Provider Active Start: June 08, 2024 Evelyn Robertson [employer] DREDGE, [employer] DREDGE-C Attending Provider Active Start: June 08, 2024 Evelyn Robertson [employer]EDGE, [employer] DREDGE-C Other Provider Active S tart: June 08, [...] Active Start: June 15, 2024 Evelyn Robertson [employer]EDGE, [employer]EDGE-C Other Provider Active S tart: June 15, 2024 Brooke Pool [employer] DREDGE, [employer] O[employer] DREDGE-C Attending Provider Active Start: June 15, 2024 Brooke Pool [employer] DREDGE, [employer] O[employer] DREDGE-C Referring Provider Active Start: June 15, 2024 [...] Active Start: June 22, 2024 Evelyn Robertson [employer] DREDGE, [employer] O[employer] DREDGE-C Attending Provider Active Start: June 22, 2024 Evelyn Robertson [employer]EDGE, [employer] O[employer]EDGE-C Other Provider Active S tart: June 22, [...] 2024 End: July 01, 2024 Evelyn Robertson [employer]EDGE, [employer]ED[employer]-C Attending Provider Active Start: June 29, 2024 End: July 01, 2024 Team Status: Active Member Role Status Dates Dr. Casie Trevizo MD Primary Care Provider Active Start: June 29, 2024 Dr. Casie Trevizo MD Referring Provider Active Start: June 29, 2024 Evelyn Robertson [employer] DREDGE, [employer] O[employer]EDGE-C Attending Provider Active Start: June 29, 2024 Evelyn Robertson [employer] OY[employer] DREDGE, [employer] OY[employer] DREDGE-C Other Provider Active S tart: June 29, [...] Active Start: July 06, 2024 Evelyn Robertson [employer]EDGE, [employer] OY[employer] DREDGE-C Other Provider Active S tart: July 06, [...] Active Start: July 13, 2024 Evelyn Robertson [employer] OY[employer] DREDGE, [employer] O[employer]EDGE-C Attending Provider Active Start: July 13, 2024 Evelyn Robertson [employer] OY[employer] DREDGE, [employer] OY[employer] DREDGE-C Other Provider Active S tart: July 13, 2024 Team Status: Active Member Role Status Dates Dr. Casie Trevizo MD Primary Care Provider Active Start: July 14, 2024 Sukumar PALM MD Attending Provider Active Start: July 14, 2024 Team Status: Active Member Role Status Dates Dr. Casie Trevizo MD Primary Care Provider Active Start: July 18, 2024 Evelyn Robertson NP, [employer]-C Other Provider Active S tart: July 18, 2024 Dr. Aiden Bartholomew MD Attending Provider Active Start: July 18, 2024 Dr. Aiden Bartholomew MD Referring Provider Active Start: July 18, 2024 Team Status: Inactive Member Role Status Dates Dr. Casie Trevizo MD Primary Care Provider Active Start: July 20, 2024 End: July 20, 2024 Ally Duron [employer]EDGE, [employer] OY[employer] DREDGE-C Attending Provider Active Start: July 20, 2024 [...] 2024 End: August 01, 2024 Evelyn Robertson [employer]EDGE, [employer] OY[employer] DREDGE-C Attending Provider Active Start: July 27, 2024 End: August 01, 2024 Team Status: Active Member Role Status Dates Dr. Casie Trevizo MD Primary Care Provider Active Start: July 27, 2024 Dr. Casie Trevizo MD Referring Provider Active Start: July 27, 2024 Evelyn Robertson [employer] OY[employer] DREDGE, [employer] OY[employer] DREDGE-C Attending Provider Active Start: July 27, 2024 Evelyn Robertson [employer] OY[employer] DREDGE, [employer] OY[employer] DREDGE-C Other Provider Active S tart: July 27, 2024 Team Status: Active Member Role Status Dates Dr. Casie Trevizo MD Primary Care Provider Active Start: August 03, 2024 Dr. Casie Trevizo MD Referring Provider Active Start: August 03, 2024 Evelyn Robertson [employer] OY[employer] DREDGE, [employer] OY[employer] DREDGE-C Attending Provider Active Start: August 03, 2024 Evelyn Robertson [employer] OY[employer] DREDGE, [employer] OYSTER DREDGE-C Other Provider Active S tart: August 03, 2024 Team Status: Active Member Role Status Dates Dr. Casie Trevizo MD Primary Care Provider Active Start: August 10, 2024 Dr. Casie Trevizo MD Referring Provider Active Start: August 10, 2024 Evelyn Robertson [employer] OY[employer] DREDGE, [employer] OYSTER DREDGE-C Attending Provider Active Start: August 10, 2024 Evelyn Robertson [employer] OYSTER DREDGE, [employer] OYSTER DREDGE-C Other Provider Active S tart: August 10, 2024 Team Status: Active Member Role Status Dates Dr. Casie Trevizo MD Primary Care Provider Active Start: August 17, 2024 Dr. Casie Trevizo MD Referring Provider Active Start: August 17, 2024 Evelyn Robertson [employer] OYSTER DREDGE, [employer] OYSTER DREDGE-C Attending Provider Active Start: August 17, 2024 Evelyn Robertson [employer] OYSTER DREDGE, [employer]KH[employer] OYSTER DREDGE-C Other Provider Active S tart: August 17, 2024 Team Status: Active Member Role Status Dates Dr. Casie Trevizo MD Primary Care Provider Active Start: August 24, 2024 Dr. Casie Trevizo MD Referring Provider Active Start: August 24, 2024 Evelyn Robertson [employer] OYSTER DREDGE, [employer] OYSTER DREDGE-C Attending Provider Active Start: August 24, 2024 Evelyn Robertson [employer] OY[employer] DREDGE, [employer]KH[employer] OYSTER DREDGE-C Other Provider Active S tart: August 24, 2024 Team Status: Inactive Member Role Status Dates Dr. Casie Trevizo MD Primary Care Provider Active Start: August 31, 2024 End: August 31, 2024 Dr. Casie Trevizo MD Referring Provider Active Start: August 31, 2024 End: August 31, 2024 Evelyn Robertson [employer] OY[employer] DREDGE, [employer] OY[employer] DREDGE-C Attending Provider Active Start: August 31, 2024 End: August 31, 2024 Team Status: Active Member Role Status Dates Dr. Casie Trevizo MD Primary Care Provider Active Start: August 31, 2024 Dr. Casie Trevizo MD Referring Provider Active Start: August 31, 2024 Evelyn Robertson [employer] OYSTER DREDGE, [employer] OY[employer] DREDGE-C Attending Provider Active Start: August 31, 2024 Evelyn Robertson [employer] OY[employer] DREDGE, [employer] OYSTER DREDGE-C Other Provider Active S tart: August 31, 2024 Team Status: Active Member Role Status Dates Dr. Casie Trevizo MD Primary Care Provider Active Start: September 07, 2024 Dr. Casie Trevizo MD Referring Provider Active Start: September 07, 2024 Evelyn Robertson [employer] OY[employer] DREDGE, [employer] OY[employer] DREDGE-C Attending Provider Active Start: September 07, 2024 Evelyn Robertson [employer] OY[employer]EDGE, [employer]KH[employer] OYSTER DREDGE-C Other Provider Active S tart: September 07, 2024 Team Status: Active Member Role Status Dates Dr. Casie Trevizo MD Primary Care Provider Active Start: September 14, 2024 Dr. Casie Trevizo MD Referring Provider Active Start: September 14, 2024 Evelyn Robertson [employer] OY[employer] DREDGE, [employer] OYSTER DREDGE-C Attending Provider Active Start: September 14, 2024 Evelyn Robertson [employer] OY[employer] DREDGE, [employer]KH[employer] OYSTER DREDGE-C Other Provider Active S tart: September 14, 2024 Team Status: Active Member Role Status Dates Dr. Casie Trevizo MD Primary Care Provider Active Start: September 21, 2024 Dr. Casie Trevizo MD Referring Provider Active Start: September 21, 2024 Evelyn Robertson [employer] OYSTER DREDGE, [employer] OYSTER DREDGE-C Attending Provider Active Start: September 21, 2024 Evelyn Robertson [employer] OYSTER DREDGE, [employer]KH[employer] OYSTER DREDGE-C Other Provider Active S tart: September 21, 2024 Team Status: Inactive Member Role Status Dates Dr. Casie Trevizo MD Primary Care Provider Active Start: September 28, 2024 End: October 01, 2024 Dr. Casie Trevizo MD Referring Provider Active Start: September 28, 2024 End: October 01, 2024 Evelyn Robertson [employer] OYSTER DREDGE, [employer] OYSTER DREDGE-C Attending Provider Active Start: September 28, 2024 End: October 01, 2024 Team Status: Active Member Role Status Dates Dr. Casie Trevizo MD Primary Care Provider Active Start: September 28, 2024 Dr. Casie Trevizo MD Referring Provider Active Start: September 28, 2024 Evelyn Robertson [employer] OYSTER DREDGE, [employer]KH[employer] OYSTER DREDGE-C Attending Provider Active Start: September 28, 2024 Evelyn Robertson [employer] OYSTER DREDGE, [employer]KH[employer] OYSTER DREDGE-C Other Provider Active S tart: September 28, [...] Active Start: July 06, 2024 Evelyn Robertson [employer] OY[employer] DREDGE, [employer] OYSTER DREDGE-C Other Provider Active S tart: July 06, [...] Active Start: July 13, 2024 Evelyn Robertson [employer] OY[employer]EDGE, [employer] OY[employer]EDGE-C Attending Provider Active Start: July 13, 2024 Evelyn Robertson [employer] OY[employer] DREDGE, [employer]EDGE-C Other Provider Active S tart: July 13, 2024 Team Status: Active Member Role/Relationship Status Dates Dr. Casie Trevizo MD Primary Care Provider Active Start: July 14, 2024 Sukumar PALM MD Attending Provider Active Start: July 14, 2024 Team Status: Active Member Role/Relationship Status Dates Dr. Casie Trevizo MD Primary Care Provider Active Start: July 18, 2024 Evelyn Robertson [employer] OY[employer]EDGE, [employer] OY[employer] DREDGE-C Other Provider Active S tart: July 18, 2024 Dr. Aiden Bartholomew MD Attending Provider Active Start: July 18, 2024 Dr. Aiden Bartholomew MD Referring Provider Active Start: July 18, 2024 Team Status: Inactive Member Role/Relationship Status Dates Dr. Casie Trevizo MD Primary Care Provider Active Start: July 20, 2024 End: July 20, 2024 Ally Duron [employer]EDGE, [employer] OY[employer] DREDGE-C Attending Provider Active Start: July 20, 2024 [...] 2024 End: August 01, 2024 Evelyn Robertson [employer] OY[employer] DREDGE, [employer] OY[employer] DREDGE-C Attending Provider Active Start: July 27, 2024 End: August 01, 2024 Team Status: Active Member Role/Relationship Status Dates Dr. Casie Trevizo MD Primary Care Provider Active Start: July 27, 2024 Dr. Casie Trevizo MD Referring Provider Active Start: July 27, 2024 Evelyn Robertson [employer] OYSTER DREDGE, [employer] OYSTER DREDGE-C Attending Provider Active Start: July 27, 2024 Evelyn Robertson [employer] OYSTER DREDGE, [employer]KH[employer] OYSTER DREDGE-C Other Provider Active S tart: July 27, 2024 Team Status: Active Member Role/Relationship Status Dates Dr. Casie Trevizo MD Primary Care Provider Active Start: August 03, 2024 Dr. Casie Trevizo MD Referring Provider Active Start: August 03, 2024 Evelyn Robertson [employer] OYSTER DREDGE, [employer] OYSTER DREDGE-C Attending Provider Active Start: August 03, 2024 Evelyn Robertson [employer]KH[employer] OYSTER DREDGE, DECKH[employer] OYSTER DREDGE-C Other Provider Active S tart: August 03, 2024 Team Status: Active Member Role/Relationship Status Dates Dr. Casie Trevizo MD Primary Care Provider Active Start: August 10, 2024 Dr. Casie Trevizo MD Referring Provider Active Start: August 10, 2024 Evelyn Robertson [employer]AND OYSTER DREDGE, [employer]KH[employer] OYSTER DREDGE-C Attending Provider Active Start: August 10, 2024 Evelyn Robertson [employer]KH[employer] OYSTER DREDGE, DECKHAND OYSTER DREDGE-C Other Provider Active S tart: August 10, 2024 Team Status: Active Member Role/Relationship Status Dates Dr. Casie Trevizo MD Primary Care Provider Active Start: August 17, 2024 Dr. Casie Trevizo MD Referring Provider Active Start: August 17, 2024 Evelyn Robertson [employer] OYSTER DREDGE, [employer]KH[employer] OYSTER DREDGE-C Attending Provider Active Start: August 17, 2024 Evelyn Robertson [employer]KH[employer] OYSTER DREDGE, DECKH[employer] OYSTER DREDGE-C Other Provider Active S tart: August 17, 2024 Team Status: Active Member Role/Relationship Status Dates Dr. Casie Trevizo MD Primary Care Provider Active Start: August 24, 2024 Dr. Casie Trevizo MD Referring Provider Active Start: August 24, 2024 Evelyn Robertson [employer]KHAND OYSTER DREDGE, [employer]KH[employer] OYSTER DREDGE-C Attending Provider Active Start: August 24, 2024 Evelyn Robertson [employer]KH[employer] OYSTER DREDGE, DECKH[employer] OYSTER DREDGE-C Other Provider Active S tart: August 24, 2024 Team Status: Inactive Member Role/Relationship Status Dates Dr. Casie Trevizo MD Primary Care Provider Active Start: August 31, 2024 End: August 31, 2024 Dr. Casie Trevizo MD Referring Provider Active Start: August 31, 2024 End: August 31, 2024 Evelyn Robertson [employer] OYSTER DREDGE, [employer]KH[employer] OYSTER DREDGE-C Attending Provider Active Start: August 31, 2024 End: August 31, 2024 Team Status: Active Member Role/Relationship Status Dates Dr. Casie Trevizo MD Primary Care Provider Active Start: August 31, 2024 Dr. Casie Trevizo MD Referring Provider Active Start: August 31, 2024 Evelyn Robertson [employer]KH[employer] OYSTER DREDGE, [employer]KH[employer] OYSTER DREDGE-C Attending Provider Active Start: August 31, 2024 Evelyn Robertson [employer] OYSTER DREDGE, [employer]KH[employer] OYSTER DREDGE-C Other Provider Active S tart: August 31, 2024 Team Status: Active Member Role/Relationship Status Dates Dr. Casie Trevizo MD Primary Care Provider Active Start: September 07, 2024 Dr. Casie Trevizo MD Referring Provider Active Start: September 07, 2024 Evelyn Robertson [employer] OYSTER DREDGE, [employer] OY[employer] DREDGE-C Attending Provider Active Start: September 07, 2024 Evelyn Robertson [employer]KH[employer] OYSTER DREDGE, [employer]KH[employer] OYSTER DREDGE-C Other Provider Active S tart: September 07, 2024 Team Status: Active Member Role/Relationship Status Dates Dr. Casie Trevizo MD Primary Care Provider Active Start: September 14, 2024 Dr. Casie Trevizo MD Referring Provider Active Start: September 14, 2024 Evelyn Robertson [employer]KH[employer] OYSTER DREDGE, [employer] OYSTER DREDGE-C Attending Provider Active Start: September 14, 2024 Evelyn Robertson [employer]KH[employer] OYSTER DREDGE, [employer]KH[employer] OYSTER DREDGE-C Other Provider Active S tart: September 14, 2024 Team Status: Active Member Role/Relationship Status Dates Dr. Casie Trevizo MD Primary Care Provider Active Start: September 21, 2024 Dr. Casie Trevizo MD Referring Provider Active Start: September 21, 2024 Evelyn Robertson [employer]KH[employer] OYSTER DREDGE, [employer] OYSTER DREDGE-C Attending Provider Active Start: September 21, 2024 Evelyn Robertson [employer]KH[employer] OYSTER DREDGE, [employer]KH[employer] OYSTER DREDGE-C Other Provider Active S tart: September 21, 2024 Team Status: Inactive Member Role/Relationship Status Dates Dr. Casie Trevizo MD Primary Care Provider Active Start: September 28, 2024 End: October 01, 2024 Dr. Casie Trevizo MD Referring Provider Active Start: September 28, 2024 End: October 01, 2024 Evelyn Robertson [employer] OYSTER DREDGE, [employer] OYSTER DREDGE-C Attending Provider Active Start: September 28, 2024 End: October 01, 2024 Team Status: Active Member Role/Relationship Status Dates Dr. Casie Trevizo MD Primary Care Provider Active Start: September 28, 2024 Dr. Casie Trevizo MD Referring Provider Active Start: September 28, 2024 Evelyn Robertson [employer]KHAND OYSTER DREDGE, [employer]KH[employer] OYSTER DREDGE-C Attending Provider Active Start: September 28, 2024 Evelyn Robertson [employer]KH[employer] OYSTER DREDGE, DECKHAND OYSTER DREDGE-C Other Provider Active S tart: September 28, 2024 Team Status: Active Member Role/Relationship Status Dates Dr. Casie Trevizo MD Primary Care Provider Active Start: October 05, 2024 Dr. Casie Trevizo MD Referring Provider Active Start: October 05, 2024 Evelyn Robertson [employer]KH[employer] OYSTER DREDGE, [employer]KH[employer] OYSTER DREDGE-C Attending Provider Active Start: October 05, 2024 Evelyn Robertson [employer]KH[employer] OYSTER DREDGE, [employer]KH[employer] OYSTER DREDGE-C Other Provider Active S tart: October 05, 2024 Team Status: Inactive Member Role/Relationship Status Dates Dr. Casie Trevizo MD Primary Care Provider Active Start: October 12, 2024 End: October 31, 2024 Dr. Casie Trevizo MD Referring Provider Active Start: October 12, 2024 End: October 31, 2024 Evelyn Robertson [employer]AND OYSTER DREDGE, [employer]KH[employer] OYSTER DREDGE-C Attending Provider Active Start: October 12, 2024 End: October 31, 2024 Team Status: Active Member Role/Relationship Status Dates Dr. Casie Trevizo MD Primary Care Provider Active Start: October 12, 2024 Dr. Casie Trevizo MD Referring Provider Active Start: October 12, 2024 Evelyn Robertson [employer]KHAND OYSTER DREDGE, DECKHAND OYSTER DREDGE-C Attending Provider Active Start: October 12, 2024 Evelyn Robertson [employer]KH[employer] OYSTER DREDGE, [employer]KHAND OYSTER DREDGE-C Other Provider Active S tart: October 12, 2024 Team Status: Active Member Role/Relationship Status Dates Ye Hoffman MD Primary Care Provider Active Team Status: Active Member Role/Relationship Status Dates Dr. Casie Trevizo MD Primary Care Provider Active Start: September 07, 2024 Dr. Casie Trevizo MD Referring Provider Active Start: September 07, 2024 Evelyn Robertson [employer]KHAND OYSTER DREDGE, DECKHAND OYSTER DREDGE-C Attending Provider Active Start: September 07, 2024 Evelyn Robertson [employer]KHAND OYSTER DREDGE, DECKHAND OYSTER DREDGE-C Other Provider Active S tart: September 07, 2024 Team Status: Active Member Role/Relationship Status Dates Dr. Casie Trevizo MD Primary Care Provider Active Start: September 14, 2024 Dr. Casie Trevizo MD Referring Provider Active Start: September 14, 2024 Evelyn Robertson DECKHAND OYSTER DREDGE, DECKHAND OYSTER DREDGE-C Attending Provider Active Start: September 14, 2024 Evelyn Robertson [employer]KHAND OYSTER DREDGE, DECKHAND OYSTER DREDGE-C Other Provider Active S tart: September 14, 2024 Team Status: Active Member Role/Relationship Status Dates Dr. Casie Trevizo MD Primary Care Provider Active Start: September 21, 2024 Dr. Casie Trevizo MD Referring Provider Active Start: September 21, 2024 Evelyn Robertson DECKHAND OYSTER DREDGE, DECKHAND OYSTER DREDGE-C Attending Provider Active Start: September 21, 2024 Evelyn Robertson [employer]KHAND OYSTER DREDGE, DECKHAND OYSTER DREDGE-C Other Provider Active S tart: September 21, 2024 Team Status: Inactive Member Role/Relationship Status Dates Dr. Casie Trevizo MD Primary Care Provider Active Start: September 28, 2024 End: October 01, 2024 Dr. Casie Trevizo MD Referring Provider Active Start: September 28, 2024 End: October 01, 2024 Evelyn Robertson [employer]KHAND OYSTER DREDGE, DECKHAND OYSTER DREDGE-C Attending Provider Active Start: September 28, 2024 End: October 01, 2024 Team Status: Active Member Role/Relationship Status Dates Dr. Casie Trevizo MD Primary Care Provider Active Start: September 28, 2024 Dr. Casie Trevizo MD Referring Provider Active Start: September 28, 2024 Evelyn Robertson [employer]KHAND OYSTER DREDGE, [employer]KHAND OYSTER DREDGE-C Attending Provider Active Start: September 28, 2024 Evelyn Robertson [employer]KHAND OYSTER DREDGE, DECKHAND OYSTER DREDGE-C Other Provider Active S tart: September 28, 2024 Team Status: Active Member Role/Relationship Status Dates Dr. Casie Trevizo MD Primary Care Provider Active Start: October 05, 2024 Dr. Casie Trevizo MD Referring Provider Active Start: October 05, 2024 Evelyn Robertson [employer]KHAND OYSTER DREDGE, [employer]KHAND OYSTER DREDGE-C Attending Provider Active Start: October 05, 2024 Evelyn Robetrson [employer] OY[employer] DREDGE, DECKHAND OYSTER DREDGE-C Other Provider Active S tart: October 05, 2024 Team Status: Inactive Member Role/Relationship Status Dates Dr. Casie Trevizo MD Primary Care Provider Active Start: October 12, 2024 End: October 31, 2024 Dr. Casie Trevizo MD Referring Provider Active Start: October 12, 2024 End: October 31, 2024 Evelyn Robertson [employer]KHAND OYSTER DREDGE, [employer]KHAND OYSTER DREDGE-C Attending Provider Active Start: October 12, 2024 End: October 31, 2024 Team Status: Active Member Role/Relationship Status Dates Dr. Casie Trevizo MD Primary Care Provider Active Start: October 12, 2024 Dr. Casie Trevizo MD Referring Provider Active Start: October 12, 2024 Evelyn Robertson [employer]KHAND OYSTER DREDGE, DECKHAND OYSTER DREDGE-C Attending Provider Active Start: October 12, 2024 Evelyn Robertson [employer]KH[employer] OYSTER DREDGE, DECKHAND OYSTER DREDGE-C Other Provider Active S tart: October 12, [...] Active Start: September 21, 2024 Evelyn Robertson [employer]KHAND OYSTER DREDGE, [employer]KHAND OYSTER DREDGE-C Attending Provider Active Start: September 21, 2024 Evelyn Robertson [employer]KH[employer] OYSTER DREDGE, [employer]KHAND OYSTER DREDGE-C Other Provider Active S tart: September 21, 2024 Team Status: Inactive Member Role/Relationship Status Dates Dr. Casie Trevizo MD Primary Care Provider Active Start: September 28, 2024 End: October 01, 2024 Dr. Casie Trevizo MD Referring Provider Active Start: September 28, 2024 End: October 01, 2024 Evelyn Robertson [employer]KHAND OYSTER DREDGE, [employer]KHAND OYSTER DREDGE-C Attending Provider Active Start: September 28, 2024 End: October 01, 2024 Team Status: Active Member Role/Relationship Status Dates Dr. Casie Trevizo MD Primary Care Provider Active Start: September 28, 2024 Dr. Casie Trevizo MD Referring Provider Active Start: September 28, 2024 Evelyn Robertson [employer]KHAND OYSTER DREDGE, [employer] OYSTER DREDGE-C Attending Provider Active Start: September 28, 2024 Evelyn Robertson [employer]KHAND OYSTER DREDGE, DECKHAND OYSTER DREDGE-C Other Provider Active S tart: September 28, 2024 Team Status: Active Member Role/Relationship Status Dates Dr. Casie Trevizo MD Primary Care Provider Active Start: October 05, 2024 Dr. Casie Trevizo MD Referring Provider Active Start: October 05, 2024 Evelyn Robertson [employer]KHAND OYSTER DREDGE, [employer]KHAND OYSTER DREDGE-C Attending Provider Active Start: October 05, 2024 Evelyn Robertson [employer] OY[employer] DREDGE, [employer]KH[employer] OYSTER DREDGE-C Other Provider Active S tart: October 05, 2024 Team Status: Inactive Member Role/Relationship Status Dates Dr. Casie Trevizo MD Primary Care Provider Active Start: October 12, 2024 End: October 31, 2024 Dr. Casie Trevizo MD Referring Provider Active Start: October 12, 2024 End: October 31, 2024 Evelyn Robertson DECKHAND OYSTER DREDGE, DECKHAND OYSTER DREDGE-C Attending Provider Active Start: October 12, 2024 End: October 31, 2024 Team Status: Active Member Role/Relationship Status Dates Dr. Casie Trevizo MD Primary Care Provider Active Start: October 12, 2024 Dr. Casie Trevizo MD Referring Provider Active Start: October 12, 2024 Evelyn Robertson DECKHAND OYSTER DREDGE, DECKHAND OYSTER DREDGE-C Attending Provider Active Start: October 12, 2024 Evelyn Robertson DECKHAND OYSTER DREDGE, DECKHAND OYSTER DREDGE-C Other Provider Active S tart: October 12, [...] section and content) DATE CREATED AUTHOR 04/08/2021 [facility] DATE CREATED AUTHOR AUTHOR'S ORGANIZ ATION 05/12/2024 [facility] DATE CREATED AUTHOR AUTHOR'S ORGANIZ ATION 05/19/2024 [facility] DATE CREATED AUTHOR AUTHOR'S ORGANIZ ATION 02/07/2025 [facility] Goals (unrecognized section and content) Goals may [...] or prosecute any alcohol or drug abuse patient.[facility] CenterIn the event this information is protected by the Federal Confidentiality of Alcohol and Drug Abuse Patient Records regulations: The Federal rules restrict any use of the information to criminally investigate or prosecute any alcohol or drug abuse patient.[facility] CenterIn the event this information is protected by the Federal Confidentiality of Alcohol and Drug Abuse Patient Records regulations: The Federal rules restrict any use of the information to criminally investigate or prosecute any alcohol or drug abuse patient.[facility] CenterIn the event this information is protected by the Federal Confidentiality of Alcohol and Drug Abuse Patient Records regulations: The Federal rules restrict any use of the information to criminally investigate or prosecute any alcohol or drug abuse patient.[facility] FOR RECORDS PERTAINING TO PATIENTS WHO ARE [...] BE BASED ON THE PRIMARY CLINICAL RECORDS. [facility]. provides no warranty or guarantee of the accuracy or completeness of information in this document.
[2025-03-11] MEDS: 0.9% Normal Saline (1000mL) 1,000 ML 150 ML IV (20:02)
[2025-03-11] MEDS: Lactated Ringers 1,000 ML 999 ML IV ×2 (21:17→22:50)
[2025-03-11] MEDS: 0.9% Saline Lock 10 ML Syringe IV (21:22)
[2025-03-12] VITALS (7 sets, daily range): BP systolic 90–110; BP diastolic 56–76; PULSE 16–161; RESP 12–117; TEMP 36.4–37.4; O2SAT 92–93
--- NOTE | 2025-03-12 00:10 | EKG12_ITS ---
Test Reason : TACHYCARDIA Blood Pressure : */* mmHG Vent. Rate : 157 BPM Atrial Rate : * BPM P-R Int : * ms QRS Dur : 76 ms QT Int : 318 ms P-R-T Axes : * 79 -30 degrees QTcB Int : 514 ms Critical Test Result: High HR Supraventricular tachycardia ST & T wave abnormality, consider inferior ischemia Abnormal ECG When compared with ECG of 11-Mar-2025 13:36, MANUAL COMPARISON REQUIRED DATA IS UNCONFIRMED Confirmed by Khanh Parr ([id number]), school photograph editor JUAN ANTONIO DUTTA ([id number]) on 03/13/2025 10:33:28 AM Referred By: SANDI Confirmed By: Khanh Parr
--- NOTE | 2025-03-12 01:23 | PCM.HOSP.N ---
Hospitalist Note Called for persistent tachycardia as patient was having sustained heart rates in the 150s. She still appeared to be somewhat dry so I give her 2 more liters of LR. She remained tachycardia so we will trial 1 dose of metoprolol 5 mg. Twelve-lead EKG looks like SVT.
[2025-03-12 06:56] LABS: Hematocrit 28.5 % (37-47); Hemoglobin 9.7 g/dL (12.0-15.0); Immature Granulocytes Count 0.100 X10^3/uL (0.0-0.0); Mean Corp Hgb Conc 34.0 g/dL (32-36); Mean Corpuscular Volume 96.0 fL (81-99); Mean Platelet Vol. 10.9 fl (6.2-12.0); NRBC Flagged by Analyzer 0 % (0-5); POSITIVE DIFFERENTIAL YES; POSITIVE MORPHOLOGY YES; Platelet Count 112 K/mm3 (150-450); RBC Distribution Width CV 12.8 % (11.6-14.6); RBC Distribution Width SD 45.2 fl (35.1-43.9); Red Blood Count 2.97 M/mm3 (4.2-5.4); White Blood Count 7.6 K/mm3 (4.4-11.0)
[2025-03-12 06:58] LABS: Differential Indicated SCAN CRITERIA MET
[2025-03-12 07:38] LABS: AST(SGOT) 33 U/L (<=31); Alanine Aminotransfer ALT/SGPT 14 U/L (<=34); Albumin, Serum 3.1 g/dL (3.4-4.8); Alkaline Phosphatase 39 U/L (35-104); Anion Gap 10 (5-15); BUN 14 mg/dL (4-19); BUN/Creat Ratio 32.4 RATIO (10-20); Calcium,Total 7.2 mg/dL (7.6-11.0); Carbon Dioxide 20.1 mmol/L (21.0-32.0); Chloride 107 mmol/L (98-108); Estimated Creatinine Clearance 39.85 ml/min (50-250); Globulin 2.0 g/dL (2.2-4.2); Glucose 41 mg/dL (70-99); Potassium 3.6 mmol/L (3.3-5.1)
[2025-03-12 08:44] LABS: Differential Comment SCANNED
--- NOTE | 2025-03-12 09:08 | PCM.PN.HOSP ---
Reason for Visit Chief Complaint: Abdominal pain Subjective Subjective Saw patient at bedside this morning. Patient was fatigued appearing but was alert and answering my questions appropriately. She was hypoglycemic to the high 30s this morning and was given a D10 bolus with repeat blood sugar 175. No history of hypoglycemia that she is aware of, patient with no history of diabetes and not on any insulin or medications here that would cause hypoglycemia. Unclear etiology for this hypoglycemia. Patient otherwise reports no nausea this morning and has had no episodes of vomiting since admission. Notes that she is feeling somewhat hungry and would like to eat when possible. No other new concerns as morning. Objective Data Objective Data Vital Signs: Vital Signs Temp Pulse Resp BP Pulse Ox O2 Del Method 97.6 F L 102 H 12 109/61 93 Room Air 03/12/25 07:50 03/12/25 07:50 03/12/25 07:50 03/12/25 07:50 03/12/25 07:50 03/12/25 07:52 Oxygen Delivery Method Room Air Weight: 40.3 kg Body Mass Index (BMI) 16.7 Intake & Output: Intake and Output for Last 24 Hours 03/10/25 03/11/25 03/12/25 23:59 23:59 23:59 Intake Total 3287.5 / 4287.5 1932.5 / 1932.5 Output Total 375 / 375 Balance 3287.5 / 3912.5 1557.5 / 1557.5 Lab / Micro Data 03/12/25 05:58 03/12/25 05:58 Labs: Laboratory Results - last 24 hr 03/11/25 13:35: WBC 5.9, RBC 3.72 L, Hgb 12.1, Hct 35.9 L, MCV 96.5, MCH 32.5 H, MCHC 33.7, RDW Std Deviation 43.6, RDW Coeff of Pretty 12.3, Plt Count 182, MPV 10.3, Immature Gran % (Auto) 0.200, Neut % (Auto) 90.6 H, Lymph % (Auto) 3.0 L, [place] % (Auto) 5.2, Eos % (Auto) 0.0, Baso % (Auto) 1.0, Absolute Neuts (auto) 5.4, Absolute Lymphs (auto) 0.18 L, Nucleated RBC % 0, Differential Comment SCANNED, PT 14.3, INR 1.1, APTT 31.4, Sodium 133, Potassium 2.8 L, Chloride 94 L, Carbon Dioxide 25.1, Anion Gap 14, BUN 19, Creatinine 0.98, Estim Creat Clear Calc 32.93 L, Est GFR (MDRD) Non-Af 61, BUN/Creatinine Ratio 19.0, Glucose 82, Lactic Acid 3.4 H*, Calcium 9.0, Total Bilirubin 0.44, AST 27, ALT 15, Alkaline Phosphatase 40, Total Protein 6.7, Albumin 4.2, Globulin 2.5, Albumin/Globulin Ratio 1.6 03/11/25 13:50: Urine Color Yellow, Urine Clarity Sl. Cloudy, Urine pH 6.5, Ur Specific [place] 1.010, Urine Protein 100 H, Urine Glucose (UA) Normal, Urine Ketones 5 H, Urine Occult Blood 25 H, Urine Nitrite Negative, Urine Bilirubin Negative, Urine Urobilinogen Normal, Ur Leukocyte Esterase 25 H, Urine RBC 0-5 SEEN, Urine WBC 5-10 SEEN, Ur Squamous Epith Cells 0 SEEN, Urine Bacteria 1+, Urine Mucus 0 SEEN 03/11/25 18:08: Lactic Acid 1.0 03/12/25 05:58: WBC 7.6, RBC 2.97 L, Hgb 9.7 L, Hct 28.5 L, MCV 96.0, MCH 32.7 H, MCHC 34.0, RDW Std Deviation 45.2 H, RDW Coeff of Pretty 12.8, Plt Count 112 L, MPV 10.9, Immature Gran % (Auto) 1.300 H, Neut % (Auto) 88.6 H, Lymph % (Auto) 3.2 L, [place] % (Auto) 6.6, Eos % (Auto) 0.0, Baso % (Auto) 0.3, Absolute Neuts (auto) 6.7, Absolute Lymphs (auto) 0.24 L, Nucleated RBC % 0, Differential Comment SCANNED, Sodium 137, Potassium 3.6, Chloride 107, Carbon Dioxide 20.1 L, Anion Gap 10, BUN 14, Creatinine 0.44 L, Estim Creat Clear Calc 39.85 L, Est GFR (MDRD) Non-Af 102, BUN/Creatinine Ratio 32.4 H, Glucose 41 L*, Calcium 7.2 L, Total Bilirubin 0.21, AST 33 H, ALT 14, Alkaline Phosphatase 39, Total Protein 5.1 L, Albumin 3.1 L, Globulin 2.0 L, Albumin/Globulin Ratio 1.5, TSH 0.576 03/12/25 07:42: POC Glucose 36 L* 03/12/25 08:01: POC Glucose 175 H Radiography Diagnostic Testing: Radiology Impression Chest X-Ray 03/11/25 13:25 IMPRESSION: Cardiomegaly. No acute pulmonary disease. Reading Location: [facility] Abdomen/Pelvis CT 03/11/25 14:30 IMPRESSION: Free-fluid which was also present previously. Question decubitus process without deep ulceration. Probable enteritis with small bowel distention and enhancement. However, can not exclude a developing small bowel obstruction and follow-up is recommended. Reading Location: [facility] Rhythm Strip Rhythm Strip: Sinus Tach Rate: 140 Ectopy: None (Tachycardia for about an hour prior to my arrival starting the 120s and the 140s.) Physical Exam Const alert and no apparent distress Constitutional Narrative: Fatigued appearing but otherwise laying back in bed and answering questions appropriately. HEENT normocephalic and head/scalp atraumatic Eyes Eyes Narrative: No icterus. Resp normal respiratory effort, no retractions, no use of accessory muscles and clear to auscultation bilaterally Cardio regular rate, regular rhythm, S1 normal heart sound and S2 normal heart sound GI soft to palpation and non-distended GI Narrative: Hypoactive bowel sounds but no abdominal tenderness, distention or pain to palpation this morning. Pain pump in the right lower quadrant without any erythema nor tenderness. Extremity normal to inspection, full ROM and no clubbing, cyanosis or edema Neuro Sensorium / Orientation: awake, alert and oriented to person Assessment & Plan Assessment/Plan (1) Acute upper abdominal pain: (2) Tachycardia: (3) Hypokalemia due to excessive gastrointestinal loss of potassium: (4) Hypoglycemia: PLAN: Plan Patient is a 74-year-old female who presented to [facility] ED on 03/12/2025 with abdominal pain, nausea/vomiting and diarrhea. Acute upper abdominal pain -Ileus versus enteritis versus small bowel obstruction -Abdomen is nondistended but is tender on the left. Notable bowel dilation on the left. -Given her history of small bowel obstruction requiring surgery, will ask for general surgery to evaluate and offer recommendations. -Patient not actively vomiting so I feel NG tube can be avoided at this time. She will be NPO. -Antiemetics and IV fluids and pain control. 03/12: Patient with no nausea/vomiting or diarrhea since admission. Abdomen soft and nondistended with minimal tenderness to palpation. Appears most consistent with ileus versus enteritis as opposed to SBO, but will await surgery recommendations before initiating diet. Continue IV antiemetics, maintenance IV fluids and pain control as needed. Tachycardia -Began about an hour prior to my initial assessment. Appeared to be sinus tachycardia. -Initial plan is to put the patient on MedSurg until I knew that she was having sustained sinus tachycardia. Vest she will be placed on the progressive care unit for further monitoring. -I suspect this is reactive given the abdominal issues but if seems to be refractory then may need to do additional cardiac testing. -She is not demonstrating any symptoms suggesting acute coronary syndrome at this time. 03/12: Overnight had sustained tachycardia with heart rate in the 150s. Overnight physician noted that twelve-lead EKG appeared consistent with SVT. She was given 2 L of IV fluids and given a dose of IV Lopressor 5 mg. Heart rate much improved to 100-110 this morning. Continue cardiac monitoring. Hypokalemia due to GI losses -Replaced in the emergency room. Will continue to monitor. Hypoglycemia 03/12: Blood glucose 41 on [facility] this morning. POC glucose 36. Given D10 bolus with repeat blood sugar 175, however that downtrended back to 75 one hour later. Etiology unclear. Not diabetic and not on insulin or other diabetic medications. LFTs normal and no liver abnormalities noted on CT abdomen pelvis on admit. Suspect acute consumption from likely enteritis as above is contributing. Giving maintenance IVF of D5 LR 75 cc/h for now until general surgery evaluates the patient as above. Hypoglycemia protocol in place. 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 Wheelchair at baseline. She does have history of decubitus ulcers but the patient's at bedside that she does not have any at this time but CAT scan imaging commented on the possible development of decubitus ulcers. Wound care consulted. Chronic pain: Continue with oxycodone. Patient does have pain pump. Continue with gabapentin. VTE prophylaxis with enoxaparin CODE STATUS: Addressed with the patient. Patient wishes to be full code. Previously had been DNR Comfort Care arrest. Total clinical time spent by myself addressing the patient's medical issues, reviewing all the data, and collaborating with patient's care team: 41 minutes. Charges/Coding Visit Charges Inpatient E&M: 87827 Subs Hosp L2
[2025-03-12] MEDS: 0.9% Saline Lock 10 ML Syringe IV (12:12)
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
[2025-03-13] VITALS (16 sets, daily range): BP systolic 82–155; BP diastolic 65–96; PULSE 91–144; RESP 16–18; TEMP 36.5–36.7; O2SAT 91–95
[2025-03-13 06:22] LABS: Hematocrit 27.9 % (37-47); Hemoglobin 9.5 g/dL (12.0-15.0); Mean Corp Hgb Conc 34.1 g/dL (32-36); Mean Corpuscular Volume 94.6 fL (81-99); Mean Platelet Vol. 10.9 fl (6.2-12.0); Platelet Count 113 K/mm3 (150-450); RBC Distribution Width CV 12.8 % (11.6-14.6); RBC Distribution Width SD 44.1 fl (35.1-43.9); Red Blood Count 2.95 M/mm3 (4.2-5.4); White Blood Count 6.2 K/mm3 (4.4-11.0)
--- NOTE | 2025-03-13 06:30 | RAD_ITS ---
PROCEDURE: ABD INC DECUB AND/OR ERECT 03/13/2025 REASON FOR EXAM: NAUSEA TECHNIQUE: Procedure Code: RADABDMV Modality: DX Procedure: ABD INC DECUB AND/OR ERECT COMPARISON: CT scan on 03/11/2025. FINDINGS: Moderate gaseous distention of the small and large bowels, probably partial small bowel obstruction. Mild osteopenia. Diffuse spondylosis. Spinal stimulator is noted. Normal visualized lung bases. There is no demonstrated free abdominal air. Normal visualized liver. Normal visualized spleen. Normal visualized kidneys. The soft tissue structures of the pelvis are unremarkable. Ununited right intertrochanteric fracture, chronic finding. RAD/Abd Inc Decub and/or Erect IMPRESSION: Moderate gaseous distention of the small and large bowels, probably partial sma ll bowel obstruction. Reading Location[facility] [address]
[2025-03-13 06:55] LABS: Anion Gap 6 (5-15); BUN 10 mg/dL (4-19); BUN/Creat Ratio 28.8 RATIO (10-20); Calcium,Total 7.3 mg/dL (7.6-11.0); Carbon Dioxide 22.7 mmol/L (21.0-32.0); Chloride 107 mmol/L (98-108); Estimated Creatinine Clearance 39.85 ml/min (50-250); Glucose 94 mg/dL (70-99); Potassium 3.2 mmol/L (3.3-5.1)
--- NOTE | 2025-03-13 07:54 | PCM.PN.SRG ---
Subjective Subjective Patient evaluated resting comfortably in bed. She notes some nausea. Denies vomiting. She notes last BM was on Thursday. Her abdomen is lime vat tender feeling. She does not believe she is passing flatus. Objective Data Objective Data Vital Signs: Vital Signs Temp Pulse Resp BP Pulse Ox O2 Del Method 98.0 F 129 H 18 100/67 92 Room Air 03/13/25 07:23 03/13/25 07:23 03/13/25 07:23 03/13/25 07:23 03/13/25 07:23 03/13/25 07:23 Oxygen Delivery Method Room Air Weight: 88 lb 13.541 oz Body Mass Index (BMI) 16.7 Intake & Output: Intake and Output for Last 24 Hours 03/11/25 03/12/25 03/13/25 23:59 23:59 23:59 Intake Total 3287.5 / 4287.5 3015.0 / 3015.0 100 / 100 Output Total 1875 / 1875 0 / 0 Balance 3287.5 / 3912.5 1140.0 / 1140.0 100 / 100 Lab / Micro Data 03/13/25 06:11 03/13/25 06:11 Labs: Laboratory Results - last 24 hr 03/12/25 05:58: Differential Comment SCANNED 03/12/25 07:42: POC Glucose 36 L* 03/12/25 08:01: POC Glucose 175 H 03/12/25 09:25: POC Glucose 75 03/12/25 21:07: POC Glucose 87 03/13/25 05:07: POC Glucose 90 03/13/25 06:11: WBC 6.2, RBC 2.95 L, Hgb 9.5 L, Hct 27.9 L, MCV 94.6, MCH 32.2 H, MCHC 34.1, RDW Std Deviation 44.1 H, RDW Coeff of Pretty 12.8, Plt Count 113 L, MPV 10.9, Sodium 136, Potassium 3.2 L, Chloride 107, Carbon Dioxide 22.7, Anion Gap 6, BUN 10, Creatinine 0.34 L, Estim Creat Clear Calc 39.85 L, Est GFR (MDRD) Non-Af 109, BUN/Creatinine Ratio 28.8 H, Glucose 94, Calcium 7.3 L Micro: Microbiology 03/11/25 13:50 Urine, Clean Catch Urine Culture - Preliminary GNR lactose area 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 Reading Location: [place] [id number] Rhythm Strip Rhythm Strip: Sinus Tach Rate: 140 Ectopy: None (Tachycardia for about an hour prior to my arrival starting the 120s and the 140s.) Physical Exam GI GI Narrative: Abdomen- still tenderness to palpation. Positive bowel sounds. Slightly distended Assessment & Plan Assessment/Plan (1) Partial small bowel obstruction: PLAN: I am following this patient in conjunction with Dr. Jaramillo. He will independently evaluate this patient. Labs reviewed. Potassium replaced Plan to order small bowel follow-through today KUB this morning demonstrated moderate gaseous distention of small and large bowels We will continue to monitor this patient Charges/Coding Visit Charges Inpatient E&M: 09963 Subs Hosp L2
--- NOTE | 2025-03-13 08:30 | RAD_ITS ---
PROCEDURE: SMALL BOWEL SERIES ONLY 03/13/2025 REASON FOR EXAM: SMALL BOWEL OBSTRUCTION TECHNIQUE: SMALL BOWEL SERIES ONLY Oral contrast was ingested by the patient. A small bowel follow-through examination was performed. The examination was followed 422 hours. FINDINGS: [employer] Image: Small bowel dilatation. Gas and fecal material are seen in the colon. Contrast is seen within the colon at 22 hours following the initiation of the examination. Contrast is seen within the colon at 22 hours following the initiation of the examination. Reading Location: [id number]
[2025-03-13] MEDS: Potassium Chloride 10mEq/100mL 10 MEQ/100 ML IV.SOLN. 30 MEQ IV BOLUS (09:49)
--- NOTE | 2025-03-13 10:00 | CASEMGMT ---
RN CM Face to Face with patient for initial transition planning/care coordination assessment. RN CM introduced self and role at [facility]. Patient lying in bed, alert and oriented. Patient willing to participate in assessment and is able to answer all questions appropriately. Care providers, pharmacy, and demographics verified. Strata: 3 PCP: Yasmin Specialists: evonne Corona Preferred Pharmacy: [facility] Insurance: [facility], MMO Prescription Benefit: yes Living Will/HPOA: yes, geni Perales LNOK: daughters Living Arrangements: Patient lives alone in an apartment at [facility] independent living with no steps to enter. Patient is independent for selfcare. Transportation: Daughters, [place] DME/HHC: Patient has shower chair, hospital bed, wheelchair, hand held shower. Patient has been to [facility] and [facility] in the past. [facility]. Patient wishes to discharge home with possible HHC, but is willing to go to SNF for rehab if she is not able to complete her ADLs on her own. Patient states she has no further needs or concerns at this time. CM to follow for discharge planning needs that may arise. Disposition Plan: TBD, anticipate HHC vs SNF pending progress with therapy. Alba ASH, RN, CM
--- NOTE | 2025-03-13 10:32 | PN.HOSP_ITS ---
Subjective Subjective Continues to have abdominal pain is in the middle of her small bowel follow- through. Continues to be tachycardic but this is sinus denies chest pain Objective Data Objective Data Vital Signs: Vital Signs Temp Pulse Resp BP Pulse Ox O2 Del Method 97.9 F 131 H 16 134/83 H 91 Room Air 03/13/25 09:23 03/13/25 09:23 03/13/25 09:23 03/13/25 09:23 03/13/25 09:23 03/13/25 09:32 Oxygen Delivery Method Room Air Weight: 88 lb 13.541 oz Body Mass Index (BMI) 16.7 Intake & Output: Intake and Output for Last 24 Hours 03/12/25 03/13/25 03/14/25 03:59 03:59 03:59 Intake Total 4287.5 / 4287.5 2015.0 / 2015.0 100 / 100 Output Total 375 / 375 1500 / 1500 600 / 600 Balance 3912.5 / 3912.5 515.0 / 515.0 -500 / -500 Lab / Micro Data 03/13/25 06:11 03/13/25 06:11 Labs: Laboratory Results - last 24 hr 03/12/25 21:07: POC Glucose 87 03/13/25 05:07: POC Glucose 90 03/13/25 06:11: WBC 6.2, RBC 2.95 L, Hgb 9.5 L, Hct 27.9 L, MCV 94.6, MCH 32.2 H , MCHC 34.1, RDW Std Deviation 44.1 H, RDW Coeff of Pretty 12.8, Plt Count 113 L, MPV 10.9, Sodium 136, Potassium 3.2 L, Chloride 107, Carbon Dioxide 22.7, Anion Gap 6, BUN 10, Creatinine 0.34 L, Estim Creat Clear Calc 39.85 L, Est GFR (MDRD) Non-Af 109, BUN/Creatinine Ratio 28.8 H, Glucose 94, Calcium 7.3 L Micro: Microbiology 03/11/25 13:50 Urine, Clean Catch Urine Culture - Final Escherichia coli Radiography Diagnostic Testing: Radiology Impression Abdomen X-Ray 03/13/25 06:30 IMPRESSION: Moderate gaseous distention of the small and large bowels, probably partial small bowel obstruction. Reading Location: [place] [id number] Rhythm Strip Rhythm Strip: Sinus Tach Rate: 140 Ectopy: None (Tachycardia for about an hour prior to my arrival starting the 120s and the 140s.) Physical Exam Narrative General: Alert, Oriented x3, Cooperative, No apparent distress HEENT: Atraumatic, PERRLA, EOMI, Normocephalic Oral: Moist Mucosa Neck: Supple, No JVD Lungs: Diminished, Normal air movement, No rhonchi, No wheeze, No rales Cardiovascular: Tachycardic, Regular Rhythm, Normal S1, Normal S2, No murmurs Abdomen: Soft, minimally tender, Non-Distended, No Hepato-splenomegaly Extremities: No edema, Capillary Refill Less than 3 Seconds Skin: No rashes, No breakdown Musculoskeletal: No Tenderness to Palpation of Joints or Extremities Neurological: No focal neurological deficits, moves all extremities, though generalized weakness Psych/Mental Status: Normal Affect, Appropriate Assessment & Plan Assessment/Plan (1) Acute upper abdominal pain: (2) Tachycardia: (3) Hypokalemia due to excessive gastrointestinal loss of potassium: (4) Hypoglycemia: PLAN: Plan Acute upper abdominal pain -Ileus versus enteritis versus small bowel obstruction -Abdomen is nondistended but is tender on the left. Notable bowel dilation on the left. -Given her history of small bowel obstruction requiring surgery, will ask for general surgery to evaluate and offer recommendations. -Patient not actively vomiting so I feel NG tube can be avoided at this time. She will be NPO. -Antiemetics and IV fluids and pain control. 03/12: Patient with no nausea/vomiting or diarrhea since admission. Abdomen soft and nondistended with minimal tenderness to palpation. Appears most consistent with ileus versus enteritis as opposed to SBO, but will await surgery recommendations before initiating diet. Continue IV antiemetics, maintenance IV fluids and pain control as needed. 03/13/2025: Appreciate general surgery's assistance, small bowel follow-through is pending Tachycardia -Began about an hour prior to my initial assessment. Appeared to be sinus tachycardia. -Initial plan is to put the patient on MedSurg until I knew that she was having sustained sinus tachycardia. Vest she will be placed on the progressive care unit for further monitoring. -I suspect this is reactive given the abdominal issues but if seems to be refractory then may need to do additional cardiac testing. -She is not demonstrating any symptoms suggesting acute coronary syndrome at this time. 03/12: Overnight had sustained tachycardia with heart rate in the 150s. Overnight physician noted that twelve-lead EKG appeared consistent with SVT. She was given 2 L of IV fluids and given a dose of IV Lopressor 5 mg. Heart rate much improved to 100-110 this morning. Continue cardiac monitoring. 03/13/2025: Mean arterial pressures are stable no significant concern at this time as her sinus tachycardia is likely related to her abdominal discomfort, she does have a very mild UTI so we will start antibiotics today but by no means is she considered septic Hypokalemia due to GI losses -Replaced in the emergency room. Will continue to monitor. Hypoglycemia 03/12: Blood glucose 41 on BMP this morning. POC glucose 36. Given D10 bolus with repeat blood sugar 175, however that downtrended back to 75 one hour later. Etiology unclear. Not diabetic and not on insulin or other diabetic medications. LFTs normal and no liver abnormalities noted on CT abdomen pelvis on admit. Suspect acute consumption from likely enteritis as above is contributing. Giving maintenance IVF of D5 LR 75 cc/h for now until general surgery evaluates the patient as above. Hypoglycemia protocol in place. 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 Wheelchair at baseline. She does have history of decubitus ulcers but the patient's at bedside that she does not have any at this time but CAT scan imaging commented on the possible development of decubitus ulcers. Wound care consulted. Chronic pain/anxiety/depression: Continue with oxycodone. Patient does have pain pump. Continue with gabapentin. Continue with home mental health meds DVT: Lovenox Charges/Coding Visit Charges Inpatient E&M: 91227 Subs Hosp L2
[2025-03-13] MEDS: Potassium Chloride 10mEq/100mL 10 MEQ/100 ML IV.SOLN. 65 MEQ IV BOLUS ×3 (12:37→15:51)
[2025-03-13] MEDS: 0.9% Saline Lock 10 ML Syringe IV (23:28)
[2025-03-14] VITALS (9 sets, daily range): BP systolic 148–166; BP diastolic 86–105; PULSE 93–137; RESP 14–17; TEMP 36.2–36.9; O2SAT 93–97
[2025-03-14 04:30] LABS: Hematocrit 29.5 % (37-47); Hemoglobin 10.0 g/dL (12.0-15.0); Immature Granulocytes Count 0.010 X10^3/uL (0.0-0.0); Mean Corp Hgb Conc 33.9 g/dL (32-36); Mean Corpuscular Volume 95.8 fL (81-99); Mean Platelet Vol. 11.3 fl (6.2-12.0); NRBC Flagged by Analyzer 0 % (0-5); POSITIVE DIFFERENTIAL YES; Platelet Count 113 K/mm3 (150-450); RBC Distribution Width CV 13.4 % (11.6-14.6); RBC Distribution Width SD 47.4 fl (35.1-43.9); Red Blood Count 3.08 M/mm3 (4.2-5.4); White Blood Count 6.2 K/mm3 (4.4-11.0)
[2025-03-14 05:01] LABS: Anion Gap 7 (5-15); BUN 6 mg/dL (4-19); BUN/Creat Ratio 18.9 RATIO (10-20); Calcium,Total 7.6 mg/dL (7.6-11.0); Carbon Dioxide 21.6 mmol/L (21.0-32.0); Chloride 107 mmol/L (98-108); Estimated Creatinine Clearance 39.85 ml/min (50-250); Glucose 107 mg/dL (70-99); Magnesium 2.2 mg/dL (1.5-2.2); Potassium 3.9 mmol/L (3.3-5.1)
[2025-03-14] MEDS: 0.9% Saline Lock 10 ML Syringe IV ×4 (05:45→21:05)
--- NOTE | 2025-03-14 08:34 | PCM.PN.SRG ---
Subjective Subjective Patient evaluated resting comfortably in bed. She notes feeling much improved. She notes less soreness in her abdomen. Negative flatus or bowel movement. She notes feeling a little hungry. Objective Data Objective Data Vital Signs: Vital Signs Temp Pulse Resp BP Pulse Ox O2 Del Method 97.2 F L 97 16 148/88 H 93 Room Air 03/14/25 02:12 03/14/25 05:45 03/14/25 02:12 03/14/25 05:45 03/14/25 02:12 03/14/25 04:00 Oxygen Delivery Method Room Air Weight: 88 lb 13.541 oz Body Mass Index (BMI) 16.7 Intake & Output: Intake and Output for Last 24 Hours 03/12/25 03/13/25 03/14/25 23:59 23:59 23:59 Intake Total 3015.0 / 3015.0 1788.58 / 1788.58 1000 / 1000 Output Total 1875 / 1875 1200 / 1200 Balance 1140.0 / 1140.0 588.58 / 588.58 1000 / 1000 Lab / Micro Data 03/14/25 04:06 03/14/25 04:06 Labs: Laboratory Results - last 24 hr 03/14/25 04:06: WBC 6.2, RBC 3.08 L, Hgb 10.0 L, Hct 29.5 L, MCV 95.8, MCH 32.5 H, MCHC 33.9, RDW Std Deviation 47.4 H, RDW Coeff of Pretty 13.4, Plt Count 113 L, MPV 11.3, Immature Gran % (Auto) 0.200, Neut % (Auto) 86.6 H, Lymph % (Auto) 7.8 L, [place] % (Auto) 3.2, Eos % (Auto) 1.9, Baso % (Auto) 0.3, Absolute Neuts (auto) 5.4, Absolute Lymphs (auto) 0.48 L, Nucleated RBC % 0, Sodium 136, Potassium 3.9, Chloride 107, Carbon Dioxide 21.6, Anion Gap 7, BUN 6, Creatinine 0.33 L, Estim Creat Clear Calc 39.85 L, Est GFR (MDRD) Non-Af 110, BUN/Creatinine Ratio 18.9, Glucose 107 H, Calcium 7.6, Phosphorus 1.5 L, Magnesium 2.2 Micro: Microbiology 03/11/25 13:51 Blood Culture (Wb) - Anticubital Left Blood Culture - Preliminary No growth in 48 hours. 03/11/25 13:35 Blood Culture (Wb) - Anticubital Right Blood Culture - Preliminary No growth in 48 hours. 03/11/25 13:50 Urine, Clean Catch Urine Culture - Final Escherichia coli Rhythm Strip Rhythm Strip: Sinus Tach Rate: 140 Ectopy: None (Tachycardia for about an hour prior to my arrival starting the 120s and the 140s.) Physical Exam GI GI Narrative: Abdomen- soft, nontender. Positive bowel sounds. Assessment & Plan Assessment/Plan (1) Partial small bowel obstruction: (2) Ileus: PLAN: Plan I am following this patient in conjunction with Dr. Jaramillo. Patient was discussed with Dr. Jaramillo. He will independently evaluate this patient. Labs reviewed. SBFT demonstrated contrast noted in the colon Plan to give lactulose enema We will continue to monitor this patient Charges/Coding Visit Charges Inpatient E&M: 40594 Subs Hosp L2
--- NOTE | 2025-03-14 09:10 | PN.HOSP_ITS ---
Subjective Subjective No issues overnight, still no return of bowel function however she does feel hungry Objective Data Objective Data Vital Signs: Vital Signs Temp Pulse Resp BP Pulse Ox O2 Del Method 97.2 F L 97 16 148/88 H 93 Room Air 03/14/25 02:12 03/14/25 05:45 03/14/25 02:12 03/14/25 05:45 03/14/25 02:12 03/14/25 04:00 Oxygen Delivery Method Room Air Weight: 88 lb 13.541 oz Body Mass Index (BMI) 16.7 Intake & Output: Intake and Output for Last 24 Hours 03/13/25 03/14/25 03/15/25 03:59 03:59 03:59 Intake Total 2015.0 / 2015.0 2788.58 / 2788.58 Output Total 1500 / 1500 1200 / 1200 Balance 515.0 / 515.0 1588.58 / 1588.58 Lab / Micro Data 03/14/25 04:06 03/14/25 04:06 Labs: Laboratory Results - last 24 hr 03/14/25 04:06: WBC 6.2, RBC 3.08 L, Hgb 10.0 L, Hct 29.5 L, MCV 95.8, MCH 32.5 H, MCHC 33.9, RDW Std Deviation 47.4 H, RDW Coeff of Pretty 13.4, Plt Count 113 L, MPV 11.3, Immature Gran % (Auto) 0.200, Neut % (Auto) 86.6 H, Lymph % (Auto) 7.8 L, [place] % (Auto) 3.2, Eos % (Auto) 1.9, Baso % (Auto) 0.3, Absolute Neuts (auto) 5.4, Absolute Lymphs (auto) 0.48 L, Nucleated RBC % 0, Sodium 136, Potassium 3.9, Chloride 107, Carbon Dioxide 21.6, Anion Gap 7, BUN 6, Creatinine 0.33 L, E stim Creat Clear Calc 39.85 L, Est GFR (MDRD) Non-Af 110, BUN/Creatinine Ratio 18.9, Glucose 107 H, Calcium 7.6, Phosphorus 1.5 L, Magnesium 2.2 Micro: Microbiology 03/11/25 13:51 Blood Culture (Wb) - Anticubital Left Blood Culture - Preliminary No growth in 48 hours. 03/11/25 13:35 Blood Culture (Wb) - Anticubital Right Blood Culture - Preliminary No growth in 48 hours. 03/11/25 13:50 Urine, Clean Catch Urine Culture - Final Escherichia coli Rhythm Strip Rhythm Strip: Sinus Tach Rate: 140 Ectopy: None (Tachycardia for about an hour prior to my arrival starting the 120s and the 140s.) Physical Exam Narrative General: Alert, Oriented x3, Cooperative, No apparent distress HEENT: Atraumatic, PERRLA, EOMI, Normocephalic Oral: Moist Mucosa Neck: Supple, No JVD Lungs: Diminished, Normal air movement, No rhonchi, No wheeze, No rales Cardiovascular: Tachycardic, Regular Rhythm, Normal S1, Normal S2, No murmurs Abdomen: Soft, minimally tender, Non-Distended, No Hepato-splenomegaly Extremities: No edema, Capillary Refill Less than 3 Seconds Skin: No rashes, No breakdown Musculoskeletal: No Tenderness to Palpation of Joints or Extremities Neurological: No focal neurological deficits, moves all extremities, though generalized weakness Psych/Mental Status: Normal Affect, Appropriate Assessment & Plan Assessment/Plan (1) Acute upper abdominal pain: (2) Tachycardia: (3) Hypokalemia due to excessive gastrointestinal loss of potassium: (4) Hypoglycemia: PLAN: Plan Acute upper abdominal pain -Ileus versus enteritis versus small bowel obstruction -Abdomen is nondistended but is tender on the left. Notable bowel dilation on the left. -Given her history of small bowel obstruction requiring surgery, will ask for general surgery to evaluate and offer recommendations. -Patient not actively vomiting so I feel NG tube can be avoided at this time. She will be NPO. -Antiemetics and IV fluids and pain control. 03/12: Patient with no nausea/vomiting or diarrhea since admission. Abdomen soft and nondistended with minimal tenderness to palpation. Appears most consistent with ileus versus enteritis as opposed to SBO, but will await surgery recommendations before initiating diet. Continue IV antiemetics, maintenance IV fluids and pain control as needed. 03/13/2025: Appreciate general surgery's assistance, small bowel follow-through is pending 03/14/2025: I took 22 hours for contrast to make it into the colon, indicating significantly slow transit and does not rule out a partial small bowel obstruction. General surgery is going to attempt enema today Tachycardia -Began about an hour prior to my initial assessment. Appeared to be sinus tachycardia. -Initial plan is to put the patient on MedSurg until I knew that she was having sustained sinus tachycardia. Vest she will be placed on the progressive care unit for further monitoring. -I suspect this is reactive given the abdominal issues but if seems to be refractory then may need to do additional cardiac testing. -She is not demonstrating any symptoms suggesting acute coronary syndrome at this time. 03/12: Overnight had sustained tachycardia with heart rate in the 150s. Overnight physician noted that twelve-lead EKG appeared consistent with SVT. She was given 2 L of IV fluids and given a dose of IV Lopressor 5 mg. Heart rate much improved to 100-110 this morning. Continue cardiac monitoring. 03/13/2025: Mean arterial pressures are stable no significant concern at this time as her sinus tachycardia is likely related to her abdominal discomfort, she does have a very mild UTI so we will start antibiotics today but by no means is she considered septic 03/14/2025: Heart rate is improved periodically tachycardic likely related to GI discomfort Hypokalemia due to GI losses -Replaced in the emergency room. Will continue to monitor. Hypoglycemia 03/12: Blood glucose 41 on BMP this morning. POC glucose 36. Given D10 bolus with repeat blood sugar 175, however that downtrended back to 75 one hour later. Etiology unclear. Not diabetic and not on insulin or other diabetic medications. LFTs normal and no liver abnormalities noted on CT abdomen pelvis on admit. Suspect acute consumption from likely enteritis as above is contributing. Giving maintenance IVF of D5 LR 75 cc/h for now until general surgery evaluates the patient as above. Hypoglycemia protocol in place. 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 Wheelchair at baseline. She does have history of decubitus ulcers but the patient's at bedside that she does not have any at this time but CAT scan imaging commented on the possible development of decubitus ulcers. Wound care consulted. Chronic pain/anxiety/depression: Continue with oxycodone. Patient does have pain pump. Continue with gabapentin. Continue with home mental health meds DVT: Lovenox Charges/Coding Visit Charges Inpatient E&M: 47235 Subs Hosp L2
--- NOTE | 2025-03-14 16:31 | CHAPLAIN ---
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 [employer] ___ Other (describe below) Sacrament/Intervention _x__ Active listening ___ Anointing ___ Pentecostal ___ Bereavement ___ Communion ___ Dawna exploration ___ _x__ Life review _x__ Prayer ___ Reconciliation ___ Sacrament of Sick ___ Supportive presence ___ Wedding ___ Other (describe below) Pastoral Comments patient is watching TV and turns it off to talk; pt explains some of her health history and prior surgery to correct a similar problem; pt is optimistic that her condition is improving and that she sees good things in this; pt is asked about her concerns and she mentions a sister with cancer; prayer is welcomed for herself and for her sister; pt is connected to a local orthodoxy and has support
[2025-03-15] VITALS (15 sets, daily range): BP systolic 124–180; BP diastolic 80–102; PULSE 86–147; RESP 12–18; TEMP 36.4–37.1; O2SAT 92–96
--- NOTE | 2025-03-15 02:44 | PCM.HOSP.N ---
Hospitalist Note Patient with recurrent tachycardia, on lopressor scheduled, will given cardizem bolus x 1 and reassess.
[2025-03-15] MEDS: 0.9% Saline Lock 10 ML Syringe IV ×3 (05:06→22:37)
[2025-03-15 05:35] LABS: Hematocrit 27.8 % (37-47); Hemoglobin 9.6 g/dL (12.0-15.0); Immature Granulocytes Count 0.030 X10^3/uL (0.0-0.0); Mean Corp Hgb Conc 34.5 g/dL (32-36); Mean Corpuscular Volume 93.3 fL (81-99); Mean Platelet Vol. 11.3 fl (6.2-12.0); NRBC Flagged by Analyzer 0 % (0-5); Platelet Count 103 K/mm3 (150-450); RBC Distribution Width CV 13.6 % (11.6-14.6); RBC Distribution Width SD 46.5 fl (35.1-43.9); Red Blood Count 2.98 M/mm3 (4.2-5.4); White Blood Count 4.8 K/mm3 (4.4-11.0)
[2025-03-15 06:03] LABS: Anion Gap 5 (5-15); Calcium,Total 7.7 mg/dL (7.6-11.0); Carbon Dioxide 26.9 mmol/L (21.0-32.0); Chloride 107 mmol/L (98-108); Estimated Creatinine Clearance 39.85 ml/min (50-250); Glucose 114 mg/dL (70-99); Potassium 3.3 mmol/L (3.3-5.1)
[2025-03-15 06:10] LABS: BUN < 2 mg/dL (4-19); BUN/Creat Ratio UNABLE TO CALCULATE RATIO (10-20)
--- NOTE | 2025-03-15 08:40 | RAD_ITS ---
PROCEDURE: ABDOMEN SINGLE VIEW (PORTABLE) 03/15/2025 REASON FOR EXAM: ABDOMINAL DISTENTION TECHNIQUE: Procedure Code: RADABD_P Modality: DX Procedure: ABDOMEN SINGLE VIEW (PORTABLE) COMPARISON: Prior study dated March 13, 2025. FINDINGS: Bowel gas: Contrast is seen within the colon as well as the nondistended distal ileum. Calcifications: No suspicious calcifications. Bones: There are degenerative changes of the spine. Other: RAD/Abdomen Single View (Portable) IMPRESSION: Contrast is seen within the colon and distal ileum. Reading Location: [place] [id number]
--- NOTE | 2025-03-15 08:44 | PN.SURG_ITS ---
Subjective Subjective Patient evaluated resting comfortably in bed. She denies any nausea, vomiting. She notes some generalized abdominal soreness. She notes her abdomen is distended this morning. She has had 3 liquidy bowel movements since yesterday after the enema. SBFT noted contrast wihtin the colon at 22 hours. No true obstruction. More of an ileus type picture. Objective Data Objective Data Vital Signs: Vital Signs Temp Pulse Resp BP Pulse Ox O2 Del Method 98.4 F 99 12 132/93 H 93 Room Air 03/15/25 05:00 03/15/25 05:05 03/15/25 05:00 03/15/25 05:05 03/15/25 05:00 03/15/25 05:00 Oxygen Delivery Method Room Air Weight: 88 lb 13.541 oz Body Mass Index (BMI) 16.7 Intake & Output: Intake and Output for Last 24 Hours 03/13/25 03/14/25 03/15/25 23:59 23:59 23:59 Intake Total 1788.58 / 1788.58 2270 / 2270 902.5 / 902.5 Output Total 1200 / 1200 0 / 0 Balance 588.58 / 588.58 2270 / 2270 902.5 / 902.5 Lab / Micro Data 03/15/25 04:58 03/15/25 04:58 Labs: Laboratory Results - last 24 hr 03/15/25 04:58: WBC 4.8, RBC 2.98 L, Hgb 9.6 L, Hct 27.8 L, MCV 93.3, MCH 32.2 H , MCHC 34.5, RDW Std Deviation 46.5 H, RDW Coeff of Pretty 13.6, Plt Count 103 L, MPV 11.3, Immature Gran % (Auto) 0.600, Neut % (Auto) 75.2 H, Lymph % (Auto) 13.6 L, [place] % (Auto) 7.5, Eos % (Auto) 2.7, Baso % (Auto) 0.4, Absolute Neuts (auto) 3.6, Absolute Lymphs (auto) 0.65 L, Nucleated RBC % 0, Sodium 139, Potassium 3.3, Chloride 107, Carbon Dioxide 26.9, Anion Gap 5, BUN < 2 L, C reatinine 0.29 L, Estim Creat Clear Calc 39.85 L, Est GFR (MDRD) Non-Af 113, B UN/Creatinine Ratio UNABLE TO CALCULATE L, Glucose 114 H, Calcium 7.7 Micro: Microbiology 03/11/25 13:51 Blood Culture (Wb) - Anticubital Left Blood Culture - Preliminary No growth in 48 hours. 03/11/25 13:35 Blood Culture (Wb) - Anticubital Right Blood Culture - Preliminary No growth in 48 hours. 03/11/25 13:50 Urine, Clean Catch Urine Culture - Final Escherichia coli Rhythm Strip Rhythm Strip: Sinus Tach Rate: 140 Ectopy: None (Tachycardia for about an hour prior to my arrival starting the 120s and the 140s.) Physical Exam Const alert, oriented x3 and no apparent distress GI GI Narrative: Abdomen- soft, distended. Positive bowel sounds. Generalized soreness with palpation. Assessment & Plan Assessment/Plan (1) Ileus: PLAN: I am following this patient in conjunction with Dr. Jaramillo. He will independently evaluate this patient. Labs reviewed Order KUB for increase in abdominal distention Recommend being out of bed as often as possible Remain at clear liquids at this time Will discuss addition of Reglan with Dr. Jaramillo Patient with likely ileus from UTI versus viral. No bowel obstruction is noted following SBFT We will continue to monitor this patient Charges/Coding Visit Charges Inpatient E&M: 93098 [facility] Hosp L2
--- NOTE | 2025-03-15 09:38 | PN.HOSP_ITS ---
Subjective Subjective Has decreased motility as it took 22 hours for contrast to make it into her colon but clearly no definitive obstruction. Did have some bowel movements yesterday with enemas however still feels bloated Objective Data Objective Data Vital Signs: Vital Signs Temp Pulse Resp BP Pulse Ox O2 Del Method 98.6 F 93 18 169/86 H 92 Room Air 03/15/25 08:53 03/15/25 08:53 03/15/25 08:53 03/15/25 08:53 03/15/25 08:53 03/15/25 08:53 Oxygen Delivery Method Room Air Weight: 88 lb 13.541 oz Body Mass Index (BMI) 16.7 Intake & Output: Intake and Output for Last 24 Hours 03/14/25 03/15/25 03/16/25 03:59 03:59 03:59 Intake Total 2788.58 / 2788.58 1270 / 1270 902.5 / 902.5 Output Total 1200 / 1200 0 / 0 Balance 1588.58 / 1588.58 1270 / 1270 902.5 / 902.5 Lab / Micro Data 03/15/25 04:58 03/15/25 04:58 Labs: Laboratory Results - last 24 hr 03/15/25 04:58: WBC 4.8, RBC 2.98 L, Hgb 9.6 L, Hct 27.8 L, MCV 93.3, MCH 32.2 H , MCHC 34.5, RDW Std Deviation 46.5 H, RDW Coeff of Pretty 13.6, Plt Count 103 L, MPV 11.3, Immature Gran % (Auto) 0.600, Neut % (Auto) 75.2 H, Lymph % (Auto) 13.6 L, Tucker % (Auto) 7.5, Eos % (Auto) 2.7, Baso % (Auto) 0.4, Absolute Neuts (auto) 3.6, Absolute Lymphs (auto) 0.65 L, Nucleated RBC % 0, Sodium 139, Potassium 3.3, Chloride 107, Carbon Dioxide 26.9, Anion Gap 5, BUN < 2 L, C reatinine 0.29 L, Estim Creat Clear Calc 39.85 L, Est GFR (MDRD) Non-Af 113, B UN/Creatinine Ratio UNABLE TO CALCULATE L, Glucose 114 H, Calcium 7.7 Micro: Microbiology 03/11/25 13:51 Blood Culture (Wb) - Anticubital Left Blood Culture - Preliminary No growth in 48 hours. 03/11/25 13:35 Blood Culture (Wb) - Anticubital Right Blood Culture - Preliminary No growth in 48 hours. 03/11/25 13:50 Urine, Clean Catch Urine Culture - Final Escherichia coli Rhythm Strip Rhythm Strip: Sinus Tach Rate: 140 Ectopy: None (Tachycardia for about an hour prior to my arrival starting the 120s and the 140s.) Physical Exam Narrative General: Alert, Oriented x3, Cooperative, No apparent distress HEENT: Atraumatic, PERRLA, EOMI, Normocephalic Oral: Moist Mucosa Neck: Supple, No JVD Lungs: Diminished, Normal air movement, No rhonchi, No wheeze, No rales Cardiovascular: Tachycardic, Regular Rhythm, Normal S1, Normal S2, No murmurs Abdomen: Soft, minimally tender, Non-Distended, No Hepato-splenomegaly Extremities: No edema, Capillary Refill Less than 3 Seconds Skin: No rashes, No breakdown Musculoskeletal: No Tenderness to Palpation of Joints or Extremities Neurological: No focal neurological deficits, moves all extremities, though generalized weakness Psych/Mental Status: Normal Affect, Appropriate Assessment & Plan Assessment/Plan (1) Acute upper abdominal pain: (2) Tachycardia: (3) Hypokalemia due to excessive gastrointestinal loss of potassium: (4) Hypoglycemia: PLAN: Plan Acute upper abdominal pain/E. coli UTI -Ileus versus enteritis versus small bowel obstruction -Abdomen is nondistended but is tender on the left. Notable bowel dilation on the left. -Given her history of small bowel obstruction requiring surgery, will ask for general surgery to evaluate and offer recommendations. -Patient not actively vomiting so I feel NG tube can be avoided at this time. She will be NPO. -Antiemetics and IV fluids and pain control. 03/12: Patient with no nausea/vomiting or diarrhea since admission. Abdomen soft and nondistended with minimal tenderness to palpation. Appears most consistent with ileus versus enteritis as opposed to SBO, but will await surgery recommendations before initiating diet. Continue IV antiemetics, maintenance IV fluids and pain control as needed. 03/13/2025: Appreciate general surgery's assistance, small bowel follow-through is pending 03/14/2025: I took 22 hours for contrast to make it into the colon, indicating significantly slow transit and does not rule out a partial small bowel obstruction. General surgery is going to attempt enema today 03/15/2025: If general surgery agrees may benefit from Reglan given the lack of motility. Will do 5 days of Rocephin to complete treatment of her UTI. Tachycardia -Began about an hour prior to my initial assessment. Appeared to be sinus tachycardia. -Initial plan is to put the patient on MedSurg until I knew that she was having sustained sinus tachycardia. Vest she will be placed on the progressive care unit for further monitoring. -I suspect this is reactive given the abdominal issues but if seems to be refractory then may need to do additional cardiac testing. -She is not demonstrating any symptoms suggesting acute coronary syndrome at this time. 03/12: Overnight had sustained tachycardia with heart rate in the 150s. Overnight physician noted that twelve-lead EKG appeared consistent with SVT. She was given 2 L of IV fluids and given a dose of IV Lopressor 5 mg. Heart rate much improved to 100-110 this morning. Continue cardiac monitoring. 03/13/2025: Mean arterial pressures are stable no significant concern at this time as her sinus tachycardia is likely related to her abdominal discomfort, she does have a very mild UTI so we will start antibiotics today but by no means is she considered septic 03/14/2025: Heart rate is improved periodically tachycardic likely related to GI discomfort Hypokalemia due to GI losses -Replaced in the emergency room. Will continue to monitor. Hypoglycemia 03/12: Blood glucose 41 on BMP this morning. POC glucose 36. Given D10 bolus with repeat blood sugar 175, however that downtrended back to 75 one hour later. Etiology unclear. Not diabetic and not on insulin or other diabetic medications. LFTs normal and no liver abnormalities noted on CT abdomen pelvis on admit. Suspect acute consumption from likely enteritis as above is contributing. Giving maintenance IVF of D5 LR 75 cc/h for now until general surgery evaluates the patient as above. Hypoglycemia protocol in place. 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 Wheelchair at baseline. She does have history of decubitus ulcers but the patient's at bedside that she does not have any at this time but CAT scan imaging commented on the possible development of decubitus ulcers. Wound care consulted. Chronic pain/anxiety/depression: Continue with oxycodone. Patient does have pain pump. Continue with gabapentin. Continue with home mental health meds DVT: Lovenox Charges/Coding Visit Charges Inpatient E&M: 87274 Subs Hosp L2
--- NOTE | 2025-03-15 10:59 | WOUNDNOTE ---
wound photo: sacrum
--- NOTE | 2025-03-15 14:30 | CASEMGMT ---
RN CM in to discuss discharge planning with patient. Patient is not sure if she will be able to go home at discharge and may need SNF. Patient states she would like to discuss with daughter. Patient states she would either like [facility] or [facility], declined list at this time. EFE CM to follow up with patient in the morning after patient discusses with daughter. CM will continue to follow this patient and plan for a safe discharge.
[2025-03-16] VITALS (9 sets, daily range): BP systolic 112–136; BP diastolic 62–100; PULSE 92–137; RESP 16–18; TEMP 36.6–37.1; O2SAT 93–95
--- NOTE | 2025-03-16 03:32 | PCM.HOSP.N ---
Hospitalist Note Patient with again recurrent tachycardia, on IV lopressor scheduled, will again given cardizem bolus x 1 and reassess. The evening prior similar presentation and she responded well to cardizem.
[2025-03-16 06:05] LABS: Anion Gap 7 (5-15); BUN < 2 mg/dL (4-19); BUN/Creat Ratio UNABLE TO CALCULATE RATIO (10-20); Calcium,Total 7.7 mg/dL (7.6-11.0); Carbon Dioxide 28.7 mmol/L (21.0-32.0); Chloride 104 mmol/L (98-108); Estimated Creatinine Clearance 39.85 ml/min (50-250); Glucose 106 mg/dL (70-99); Potassium 3.2 mmol/L (3.3-5.1)
[2025-03-16] MEDS: 0.9% Saline Lock 10 ML Syringe IV ×6 (06:43→23:27)
--- NOTE | 2025-03-16 07:20 | PCM.PN.SRG ---
Subjective Subjective Patient evaluated resting comfortably in bed. She notes generalized abdominal soreness. She notes nausea has returned. She denies vomiting. She states she has not had another bowel movement overnight. Objective Data Objective Data Vital Signs: Vital Signs Temp Pulse Resp BP Pulse Ox O2 Del Method 98 F 137 H 16 124/84 H 95 Room Air 03/16/25 04:00 03/16/25 06:42 03/16/25 04:00 03/16/25 06:42 03/16/25 04:00 03/16/25 04:00 Oxygen Delivery Method Room Air Weight: 88 lb 13.541 oz Body Mass Index (BMI) 16.7 Intake & Output: Intake and Output for Last 24 Hours 03/14/25 03/15/25 03/16/25 23:59 23:59 23:59 Intake Total 2270 / 2270 1952.50 / 1952.50 Output Total 2200 / 2900 1200 / 1200 Balance 2270 / 2270 -247.50 / -947.50 -1200 / -1200 Lab / Micro Data 03/15/25 04:58 03/16/25 04:40 Labs: Laboratory Results - last 24 hr 03/16/25 04:40: Sodium 139, Potassium 3.2 L, Chloride 104, Carbon Dioxide 28.7, Anion Gap 7, BUN < 2 L, Creatinine 0.28 L, Estim Creat Clear Calc 39.85 L, Est GFR (MDRD) Non-Af 114, BUN/Creatinine Ratio UNABLE TO CALCULATE L, Glucose 106 H, Calcium 7.7 Micro: Microbiology 03/11/25 13:51 Blood Culture (Wb) - Anticubital Left Blood Culture - Preliminary No growth in 48 hours. 03/11/25 13:35 Blood Culture (Wb) - Anticubital Right Blood Culture - Preliminary No growth in 48 hours. 03/11/25 13:50 Urine, Clean Catch Urine Culture - Final Escherichia coli Radiography Diagnostic Testing: Radiology Impression KUB X-Ray 03/15/25 08:40 IMPRESSION: Contrast is seen within the colon and distal ileum. Reading Location: [place] [address] Rhythm Strip Rhythm Strip: Sinus Tach Rate: 140 Ectopy: None (Tachycardia for about an hour prior to my arrival starting the 120s and the 140s.) Physical Exam GI GI Narrative: Abdomen- soft, less distended then yesterday. Tender with palpation Assessment & Plan Assessment/Plan (1) Ileus: PLAN: I am following this patient in conjunction with Dr. Jaramillo. He has independently evaluated this patient. Labs reviewed. Potassium low Plan to obtain another KUB. It appears contrast is still within the colon Plan to give another enema Reglan started yesterday secondary to slow transit time on SBFT Patient's last colonoscopy was 3 years ago No surgical intervention is planned at this time We will continue to monitor this patient Charges/Coding Visit Charges Inpatient E&M: 87547 Subs Hosp L2
--- NOTE | 2025-03-16 10:30 | RAD_ITS ---
PROCEDURE: ABDOMEN SINGLE VIEW (PORTABLE) 03/16/2025 REASON FOR EXAM: ABDOMINAL DISTENTION TECHNIQUE: Procedure Code: RADABD_P Modality: DX Procedure: ABDOMEN SINGLE VIEW (PORTABLE) COMPARISON: 03/15/2025. FINDINGS: Grossly unchanged contrast within the colon and distal ileum. Battery pack overlies the right hemiabdomen. No suspicious calcifications. RAD/Abdomen Single View (Portable) IMPRESSION: Similar appearance of contrast within the colon and distal ileum since yesterda y's radiograph. Reading Location: [id number]
--- NOTE | 2025-03-16 11:04 | PN.HOSP_ITS ---
Subjective Subjective Still very little bowel function Objective Data Objective Data Vital Signs: Vital Signs Temp Pulse Resp BP Pulse Ox O2 Del Method 98.2 F 134 H 17 130/90 H 93 Room Air 03/16/25 09:15 03/16/25 09:15 03/16/25 09:15 03/16/25 09:15 03/16/25 09:15 03/16/25 09:29 Oxygen Delivery Method Room Air Weight: 88 lb 13.541 oz Body Mass Index (BMI) 16.7 Intake & Output: Intake and Output for Last 24 Hours 03/15/25 03/16/25 03/17/25 03:59 03:59 03:59 Intake Total 1270 / 1270 1952.50 / 1952.50 1050 / 1050 Output Total 2900 / 2900 500 / 500 Balance 1270 / 1270 -947.50 / -947.50 550 / 550 Lab / Micro Data 03/15/25 04:58 03/16/25 04:40 Labs: Laboratory Results - last 24 hr 03/16/25 04:40: Sodium 139, Potassium 3.2 L, Chloride 104, Carbon Dioxide 28.7, Anion Gap 7, BUN < 2 L, Creatinine 0.28 L, Estim Creat Clear Calc 39.85 L, Est GFR (MDRD) Non-Af 114, BUN/Creatinine Ratio UNABLE TO CALCULATE L, Glucose 106 H , Calcium 7.7 Micro: Microbiology 03/11/25 13:51 Blood Culture (Wb) - Anticubital Left Blood Culture - Preliminary No growth in 48 hours. 03/11/25 13:35 Blood Culture (Wb) - Anticubital Right Blood Culture - Preliminary No growth in 48 hours. 03/11/25 13:50 Urine, Clean Catch Urine Culture - Final Escherichia coli Rhythm Strip Rhythm Strip: Sinus Tach Rate: 140 Ectopy: None (Tachycardia for about an hour prior to my arrival starting the 120s and the 140s.) Physical Exam Narrative General: Alert, Oriented x3, Cooperative, No apparent distress HEENT: Atraumatic, PERRLA, EOMI, Normocephalic Oral: Moist Mucosa Neck: Supple, No JVD Lungs: Diminished, Normal air movement, No rhonchi, No wheeze, No rales Cardiovascular: Tachycardic, Regular Rhythm, Normal S1, Normal S2, No murmurs Abdomen: Soft, minimally tender, Non-Distended, No Hepato-splenomegaly Extremities: No edema, Capillary Refill Less than 3 Seconds Skin: No rashes, No breakdown Musculoskeletal: No Tenderness to Palpation of Joints or Extremities Neurological: No focal neurological deficits, moves all extremities, though generalized weakness Psych/Mental Status: Normal Affect, Appropriate Assessment & Plan Assessment/Plan (1) Acute upper abdominal pain: (2) Tachycardia: (3) Hypokalemia due to excessive gastrointestinal loss of potassium: (4) Hypoglycemia: PLAN: Plan Acute upper abdominal pain/E. coli UTI -Ileus versus enteritis versus small bowel obstruction -Abdomen is nondistended but is tender on the left. Notable bowel dilation on the left. -Given her history of small bowel obstruction requiring surgery, will ask for general surgery to evaluate and offer recommendations. -Patient not actively vomiting so I feel NG tube can be avoided at this time. She will be NPO. -Antiemetics and IV fluids and pain control. 03/12: Patient with no nausea/vomiting or diarrhea since admission. Abdomen soft and nondistended with minimal tenderness to palpation. Appears most consistent with ileus versus enteritis as opposed to SBO, but will await surgery recommendations before initiating diet. Continue IV antiemetics, maintenance IV fluids and pain control as needed. 03/13/2025: Appreciate general surgery's assistance, small bowel follow-through is pending 03/14/2025: I took 22 hours for contrast to make it into the colon, indicating significantly slow transit and does not rule out a partial small bowel obstruction. General surgery is going to attempt enema today 03/15/2025: If general surgery agrees may benefit from Reglan given the lack of motility. Will do 5 days of Rocephin to complete treatment of her UTI. 03/16/2025: Still no return of bowel function she is only had 1 days worth of IV Reglan will continue to monitor. Appreciate general surgery's assistance Tachycardia -Began about an hour prior to my initial assessment. Appeared to be sinus tachycardia. -Initial plan is to put the patient on MedSurg until I knew that she was having sustained sinus tachycardia. Vest she will be placed on the progressive care unit for further monitoring. -I suspect this is reactive given the abdominal issues but if seems to be refractory then may need to do additional cardiac testing. -She is not demonstrating any symptoms suggesting acute coronary syndrome at this time. 03/12: Overnight had sustained tachycardia with heart rate in the 150s. Overnight physician noted that twelve-lead EKG appeared consistent with SVT. She was given 2 L of IV fluids and given a dose of IV Lopressor 5 mg. Heart rate much improved to 100-110 this morning. Continue cardiac monitoring. 03/13/2025: Mean arterial pressures are stable no significant concern at this time as her sinus tachycardia is likely related to her abdominal discomfort, she does have a very mild UTI so we will start antibiotics today but by no means is she considered septic 03/14/2025: Heart rate is improved periodically tachycardic likely related to GI discomfort Hypokalemia due to GI losses -Replaced in the emergency room. Will continue to monitor. Hypoglycemia 03/12: Blood glucose 41 on BMP this morning. POC glucose 36. Given D10 bolus with repeat blood sugar 175, however that downtrended back to 75 one hour later. Etiology unclear. Not diabetic and not on insulin or other diabetic medications. LFTs normal and no liver abnormalities noted on CT abdomen pelvis on admit. Suspect acute consumption from likely enteritis as above is contributing. Giving maintenance IVF of D5 LR 75 cc/h for now until general surgery evaluates the patient as above. Hypoglycemia protocol in place. 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 Wheelchair at baseline. She does have history of decubitus ulcers but the patient's at bedside that she does not have any at this time but CAT scan imaging commented on the possible development of decubitus ulcers. Wound care consulted. Chronic pain/anxiety/depression: Continue with oxycodone. Patient does have pain pump. Continue with gabapentin. Continue with home mental health meds DVT: Lovenox Charges/Coding Visit Charges Inpatient E&M: 08997 Subs Hosp L2
[2025-03-16 11:53] LABS: Magnesium 1.8 mg/dL (1.5-2.2)
[2025-03-16] MEDS: 0.9% Normal Saline (250mL Bag) 250 ML 15 ML IV (14:57)
[2025-03-16] MEDS: Potassium Phosphate 30 MM in 0.9% Normal Saline (250mL Bag) 250 ML 55 MM IV (14:57)
--- NOTE | 2025-03-16 16:22 | CASEMGMT ---
RN KALI to the pt's room to follow up on DC planning. Pt states that she lives alone and that she prefers to go to a SNF at the time of DC due to not feeling safe returning home alone at this time. Pt states that her FOC is [facility]. Pt states that her second FOC is [facility]. [employer] KALI notified and has made the referral to TCU. CM to follow.
[2025-03-17] VITALS (11 sets, daily range): BP systolic 120–156; BP diastolic 70–92; PULSE 96–135; RESP 14–16; TEMP 36.6–37; O2SAT 93–96
--- NOTE | 2025-03-17 01:02 | NURSING ---
This RN took over care of this pt at this time.
[2025-03-17] MEDS: 0.9% Saline Lock 10 ML Syringe IV ×5 (03:49→22:48)
[2025-03-17 06:07] LABS: Hematocrit 26.0 % (37-47); Hemoglobin 9.3 g/dL (12.0-15.0); Immature Granulocytes Count 0.060 X10^3/uL (0.0-0.0); Mean Corp Hgb Conc 35.8 g/dL (32-36); Mean Corpuscular Volume 91.2 fL (81-99); Mean Platelet Vol. 11.4 fl (6.2-12.0); NRBC Flagged by Analyzer 0 % (0-5); Platelet Count 123 K/mm3 (150-450); RBC Distribution Width CV 12.9 % (11.6-14.6); RBC Distribution Width SD 43.0 fl (35.1-43.9); Red Blood Count 2.85 M/mm3 (4.2-5.4); White Blood Count 6.6 K/mm3 (4.4-11.0)
[2025-03-17 06:33] LABS: Anion Gap 5 (5-15); BUN < 2 mg/dL (4-19); BUN/Creat Ratio UNABLE TO CALCULATE RATIO (10-20); Calcium,Total 7.4 mg/dL (7.6-11.0); Carbon Dioxide 30.7 mmol/L (21.0-32.0); Chloride 102 mmol/L (98-108); Estimated Creatinine Clearance 39.85 ml/min (50-250); Glucose 105 mg/dL (70-99); Potassium 3.1 mmol/L (3.3-5.1)
--- NOTE | 2025-03-17 08:37 | PN.HOSP_ITS ---
Subjective Subjective Doing well, feels better since she had a large bowel movement yesterday with enemas. Continue with Reglan Objective Data Objective Data Vital Signs: Vital Signs Temp Pulse Resp BP Pulse Ox O2 Del Method 98.4 F 96 14 120/70 96 Room Air 03/17/25 04:00 03/17/25 06:06 03/17/25 04:00 03/17/25 04:00 03/17/25 04:00 03/17/25 04:05 Oxygen Delivery Method Room Air Weight: 88 lb 13.541 oz Body Mass Index (BMI) 16.7 Intake & Output: Intake and Output for Last 24 Hours 03/16/25 03/17/25 03/18/25 03:59 03:59 03:59 Intake Total 1952.50 / 1952.50 2131.75 / 2131.75 200 / 200 Output Total 2900 / 2900 1300 / 1300 300 / 300 Balance -947.50 / -947.50 831.75 / 831.75 -100 / -100 Lab / Micro Data 03/17/25 05:36 03/17/25 05:36 Labs: Laboratory Results - last 24 hr 03/16/25 04:40: Phosphorus 1.8 L, Magnesium 1.8 03/17/25 05:36: WBC 6.6, RBC 2.85 L, Hgb 9.3 L, Hct 26.0 L, MCV 91.2, MCH 32.6 H , MCHC 35.8, RDW Std Deviation 43.0, RDW Coeff of Pretty 12.9, Plt Count 123 L, MPV 11.4, Immature Gran % (Auto) 0.900, Neut % (Auto) 71.2 H, Lymph % (Auto) 11.1 L, Monona % (Auto) 15.1 H, Eos % (Auto) 1.5, Baso % (Auto) 0.2, Absolute Neuts (auto) 4.7, Absolute Lymphs (auto) 0.73 L, Nucleated RBC % 0, Sodium 138, Potassium 3.1 L, Chloride 102, Carbon Dioxide 30.7, Anion Gap 5, BUN < 2 L, Creatinine 0.24 L, Estim Creat Clear Calc 39.85 L, Est GFR (MDRD) Non-Af 118, BUN/Creatinine Ratio UNABLE TO CALCULATE L, Glucose 105 H, Calcium 7.4 L Micro: Microbiology 03/11/25 13:51 Blood Culture (Wb) - Anticubital Left Blood Culture - Final No growth in 5 days. 03/11/25 13:35 Blood Culture (Wb) - Anticubital Right Blood Culture - Final No growth in 5 days. 03/11/25 13:50 Urine, Clean Catch Urine Culture - Final Escherichia coli Radiography Diagnostic Testing: Radiology Impression KUB X-Ray 03/16/25 10:30 IMPRESSION: Similar appearance of contrast within the colon and distal ileum since yesterday's radiograph. Reading Location: [facility] Rhythm Strip Rhythm Strip: Sinus Tach Rate: 140 Ectopy: None (Tachycardia for about an hour prior to my arrival starting the 120s and the 140s.) Physical Exam Narrative General: Alert, Oriented x3, Cooperative, No apparent distress HEENT: Atraumatic, PERRLA, EOMI, Normocephalic Oral: Moist Mucosa Neck: Supple, No JVD Lungs: Diminished, Normal air movement, No rhonchi, No wheeze, No rales Cardiovascular: Tachycardic, Regular Rhythm, Normal S1, Normal S2, No murmurs Abdomen: Soft, nontender, Non-Distended, No Hepato-splenomegaly Extremities: No edema, Capillary Refill Less than 3 Seconds Skin: No rashes, No breakdown Musculoskeletal: No Tenderness to Palpation of Joints or Extremities Neurological: Chronic neurological dysfunction from her transverse myelitis she does have a little bit of movement in her upper extremities Psych/Mental Status: Normal Affect, Appropriate Assessment & Plan Assessment/Plan (1) Acute upper abdominal pain: (2) Tachycardia: (3) Hypokalemia due to excessive gastrointestinal loss of potassium: (4) Hypoglycemia: PLAN: Plan Acute upper abdominal pain/E. coli UTI -Ileus versus enteritis versus small bowel obstruction -Abdomen is nondistended but is tender on the left. Notable bowel dilation on the left. -Given her history of small bowel obstruction requiring surgery, will ask for general surgery to evaluate and offer recommendations. -Patient not actively vomiting so I feel NG tube can be avoided at this time. She will be NPO. -Antiemetics and IV fluids and pain control. 03/12: Patient with no nausea/vomiting or diarrhea since admission. Abdomen soft and nondistended with minimal tenderness to palpation. Appears most consistent with ileus versus enteritis as opposed to SBO, but will await surgery recommendations before initiating diet. Continue IV antiemetics, maintenance IV fluids and pain control as needed. 03/13/2025: Appreciate general surgery's assistance, small bowel follow-through is pending 03/14/2025: I took 22 hours for contrast to make it into the colon, indicating significantly slow transit and does not rule out a partial small bowel obstruction. General surgery is going to attempt enema today 03/15/2025: If general surgery agrees may benefit from Reglan given the lack of motility. Will do 5 days of Rocephin to complete treatment of her UTI. 03/16/2025: Still no return of bowel function she is only had 1 days worth of IV Reglan will continue to monitor. Appreciate general surgery's assistance 03/17/2025: Had 2 large bowel movements yesterday, will increase her diet to a full liquid diet, continue with IV Reglan. Tachycardia -Began about an hour prior to my initial assessment. Appeared to be sinus tachycardia. -Initial plan is to put the patient on MedSurg until I knew that she was having sustained sinus tachycardia. Vest she will be placed on the progressive care unit for further monitoring. -I suspect this is reactive given the abdominal issues but if seems to be refractory then may need to do additional cardiac testing. -She is not demonstrating any symptoms suggesting acute coronary syndrome at this time. 03/12: Overnight had sustained tachycardia with heart rate in the 150s. Overnight physician noted that twelve-lead EKG appeared consistent with SVT. She was given 2 L of IV fluids and given a dose of IV Lopressor 5 mg. Heart rate much improved to 100-110 this morning. Continue cardiac monitoring. 03/13/2025: Mean arterial pressures are stable no significant concern at this time as her sinus tachycardia is likely related to her abdominal discomfort, she does have a very mild UTI so we will start antibiotics today but by no means is she considered septic 03/14/2025: Heart rate is improved periodically tachycardic likely related to GI discomfort 03/17/2025: Transition to p.o. metoprolol 12.5 mg twice daily Hypokalemia due to GI losses -Replaced in the emergency room. Will continue to monitor. Hypoglycemia 03/12: Blood glucose 41 on BMP this morning. POC glucose 36. Given D10 bolus with repeat blood sugar 175, however that downtrended back to 75 one hour later. Etiology unclear. Not diabetic and not on insulin or other diabetic medications. LFTs normal and no liver abnormalities noted on CT abdomen pelvis on admit. Suspect acute consumption from likely enteritis as above is contributing. Giving maintenance IVF of D5 LR 75 cc/h for now until general surgery evaluates the patient as above. Hypoglycemia protocol in place. 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 Wheelchair at baseline. She does have history of decubitus ulcers but the patient's at bedside that she does not have any at this time but CAT scan imaging commented on the possible development of decubitus ulcers. Wound care consulted. Chronic pain/anxiety/depression: Continue with oxycodone. Patient does have pain pump. Continue with gabapentin. Continue with home mental health meds DVT: Lovenox Charges/Coding Visit Charges Inpatient E&M: 68739 Subs Hosp L2
--- NOTE | 2025-03-17 09:15 | CASEMGMT ---
Addendum entered by Karla Hilton 03/17/25 11:38: [facility] has accepted and are aware that pt will likely discharge over the weekend. Per RN CM, pt will set up her own transport. Green Sheet completed and placed in chart. Karla Hilton DC Planning Asst. Original Note: Discharge Planning Referral sent via [facility] to [facility]. Karla Hilton DC Planning Asst.
--- NOTE | 2025-03-17 10:20 | CASEMGMT ---
EFE BASS received update from [facility] that they are not able to accept patient as they do not have any beds available. EFE BASS updated patient, patient agreeable to have referral sen to [facility]. Patient denied further needs or concerns. EFE BASS updated DC vp strategic planning to send referral to [facility]. CM will continue to follow this patient and plan for a safe discharge.
--- NOTE | 2025-03-17 10:21 | PN.SURG_ITS ---
Subjective Subjective Patient is tolerating clears did state that she had bowel movements yesterday but thinks it may have been the suppository. Patient did have some brief sharp left lower quadrant pain today which she has had previously in the past Objective Data Objective Data Vital Signs: Vital Signs Temp Pulse Resp BP Pulse Ox O2 Del Method 98.2 F 135 H 16 137/70 H 96 Room Air 03/17/25 10:00 03/17/25 10:09 03/17/25 10:00 03/17/25 10:09 03/17/25 10:00 03/17/25 10:00 Oxygen Delivery Method Room Air Weight: 88 lb 13.541 oz Body Mass Index (BMI) 16.7 Intake & Output: Intake and Output for Last 24 Hours 03/15/25 03/16/25 03/17/25 23:59 23:59 23:59 Intake Total 1952.50 / 1952.50 1651.75 / 1651.75 680 / 680 Output Total 2200 / 2900 1999 / 1999 300 / 300 Balance -247.50 / -947.50 -348.25 / -348.25 380 / 380 Lab / Micro Data 03/17/25 05:36 03/17/25 05:36 Labs: Laboratory Results - last 24 hr 03/16/25 04:40: Phosphorus 1.8 L, Magnesium 1.8 03/17/25 05:36: WBC 6.6, RBC 2.85 L, Hgb 9.3 L, Hct 26.0 L, MCV 91.2, MCH 32.6 H , MCHC 35.8, RDW Std Deviation 43.0, RDW Coeff of Pretty 12.9, Plt Count 123 L, MPV 11.4, Immature Gran % (Auto) 0.900, Neut % (Auto) 71.2 H, Lymph % (Auto) 11.1 L, [place] % (Auto) 15.1 H, Eos % (Auto) 1.5, Baso % (Auto) 0.2, Absolute Neuts (auto) 4.7, Absolute Lymphs (auto) 0.73 L, Nucleated RBC % 0, Sodium 138, Potassium 3.1 L, Chloride 102, Carbon Dioxide 30.7, Anion Gap 5, BUN < 2 L, Creatinine 0.24 L, Estim Creat Clear Calc 39.85 L, Est GFR (MDRD) Non-Af 118, BUN/Creatinine Ratio UNABLE TO CALCULATE L, Glucose 105 H, Calcium 7.4 L Micro: Microbiology 03/11/25 13:51 Blood Culture (Wb) - Anticubital Left Blood Culture - Final No growth in 5 days. 03/11/25 13:35 Blood Culture (Wb) - Anticubital Right Blood Culture - Final No growth in 5 days. 03/11/25 13:50 Urine, Clean Catch Urine Culture - Final Escherichia coli Radiography Diagnostic Testing: Radiology Impression KUB X-Ray 03/16/25 10:30 IMPRESSION: Similar appearance of contrast within the colon and distal ileum since yesterday's radiograph. Reading Location: [facility] Rhythm Strip Rhythm Strip: Sinus Tach Rate: 140 Ectopy: None (Tachycardia for about an hour prior to my arrival starting the 120s and the 140s.) Physical Exam GI GI Narrative: Abdomen- soft, nondistended nontender Assessment & Plan Assessment/Plan (1) Ileus: PLAN: Plan to obtain another KUB-as patient states has been having some brief sharp left lower quadrant pain depending on results may give an additional enema Continue Reglan No surgical intervention is planned at this time Jes Blake M.D. Pager: [phone] [facility] [address] [place] [address], [address] [place] [address] Office: [phone] Charges/Coding Visit Charges Inpatient E&M: 14323 Subs Hosp L2
--- NOTE | 2025-03-17 14:05 | RAD_ITS ---
PROCEDURE: ABDOMEN SINGLE VIEW (PORTABLE) 03/17/2025 REASON FOR EXAM: ILEUS TECHNIQUE: Procedure Code: RADABD_P Modality: DX Procedure: ABDOMEN SINGLE VIEW (PORTABLE) COMPARISON: March 15, 2025. FINDINGS: Residual contrast is seen within the colon although this has improved as compared to prior study. Persistent colonic dilatation. Gas-filled small bowel loops. RAD/Abdomen Single View (Portable) IMPRESSION: Persistent contrast in the colon although this has improved as compared to prio r study. Residual mild colonic dilatation. Reading Location: [place] [address]
[2025-03-18] VITALS (10 sets, daily range): BP systolic 120–138; BP diastolic 69–104; PULSE 96–135; RESP 16–18; TEMP 36.5–36.9; O2SAT 93–97
[2025-03-18] MEDS: 0.9% Saline Lock 10 ML Syringe IV ×5 (06:01→23:59)
[2025-03-18 06:06] LABS: Hematocrit 27.6 % (37-47); Hemoglobin 9.6 g/dL (12.0-15.0); Immature Granulocytes Count 0.030 X10^3/uL (0.0-0.0); Mean Corp Hgb Conc 34.8 g/dL (32-36); Mean Corpuscular Volume 91.1 fL (81-99); Mean Platelet Vol. 11.2 fl (6.2-12.0); NRBC Flagged by Analyzer 0 % (0-5); Platelet Count 143 K/mm3 (150-450); RBC Distribution Width CV 13.5 % (11.6-14.6); RBC Distribution Width SD 45.2 fl (35.1-43.9); Red Blood Count 3.03 M/mm3 (4.2-5.4); White Blood Count 6.8 K/mm3 (4.4-11.0)
[2025-03-18 07:20] LABS: Anion Gap 5 (5-15); BUN < 2 mg/dL (4-19); BUN/Creat Ratio UNABLE TO CALCULATE RATIO (10-20); Calcium,Total 8.0 mg/dL (7.6-11.0); Carbon Dioxide 33.4 mmol/L (21.0-32.0); Chloride 104 mmol/L (98-108); Estimated Creatinine Clearance 39.85 ml/min (50-250); Glucose 102 mg/dL (70-99); Potassium 3.1 mmol/L (3.3-5.1)
--- NOTE | 2025-03-18 09:02 | PCM.PN.SRG ---
Subjective Subjective Patient states abdominal discomfort is improved still has some bloating not back to normal yet. Patient states she did have results from the lactulose enema yesterday. Objective Data Objective Data Vital Signs: Vital Signs Temp Pulse Resp BP Pulse Ox O2 Del Method 98.5 F 135 H 16 120/81 H 93 Room Air 03/18/25 05:50 03/18/25 05:50 03/18/25 05:50 03/18/25 05:50 03/18/25 05:50 03/18/25 05:50 Oxygen Delivery Method Room Air Weight: 88 lb 13.541 oz Body Mass Index (BMI) 16.7 Intake & Output: Intake and Output for Last 24 Hours 03/16/25 03/17/25 03/18/25 23:59 23:59 23:59 Intake Total 1651.75 / 1651.75 1730 / 2530 900 / 900 Output Total 1999 / 1999 1300 / 2300 1000 / 1000 Balance -348.25 / -348.25 430 / 230 -100 / -100 Lab / Micro Data 03/18/25 05:44 03/18/25 05:44 Labs: Laboratory Results - last 24 hr 03/18/25 05:44: WBC 6.8, RBC 3.03 L, Hgb 9.6 L, Hct 27.6 L, MCV 91.1, MCH 31.7, MCHC 34.8, RDW Std Deviation 45.2 H, RDW Coeff of Pretty 13.5, Plt Count 143 L, MPV 11.2, Immature Gran % (Auto) 0.400, Neut % (Auto) 72.2 H, Lymph % (Auto) 11.7 L, [place] % (Auto) 13.3 H, Eos % (Auto) 2.1, Baso % (Auto) 0.3, Absolute Neuts (auto) 4.9, Absolute Lymphs (auto) 0.79 L, Nucleated RBC % 0, Sodium 143, Potassium 3.1 L, Chloride 104, Carbon Dioxide 33.4 H, Anion Gap 5, BUN < 2 L, Creatinine 0.22 L, Estim Creat Clear Calc 39.85 L, Est GFR (MDRD) Non-Af 121, BUN/Creatinine Ratio UNABLE TO CALCULATE L, Glucose 102 H, Calcium 8.0 Micro: Microbiology 03/11/25 13:51 Blood Culture (Wb) - Anticubital Left Blood Culture - Final No growth in 5 days. 03/11/25 13:35 Blood Culture (Wb) - Anticubital Right Blood Culture - Final No growth in 5 days. 03/11/25 13:50 Urine, Clean Catch Urine Culture - Final Escherichia coli Radiography Diagnostic Testing: Radiology Impression KUB X-Ray 03/17/25 14:05 IMPRESSION: Persistent contrast in the colon although this has improved as compared to prior study. Residual mild colonic dilatation. Reading Location: [facility] Rhythm Strip Rhythm Strip: Sinus Tach Rate: 140 Ectopy: None (Tachycardia for about an hour prior to my arrival starting the 120s and the 140s.) Physical Exam GI GI Narrative: Abdomen- soft, nondistended nontender, Right lower quadrant subcutaneous pump, James stoma Assessment & Plan Assessment/Plan (1) Ileus: PLAN: The patient is tolerating full liquids okay to advance to regular diet and we will give her an additional lactulose enema. Continue Reglan No surgical intervention is planned at this time Jes Blake M.D. Pager: [phone] [facility] [address] [place] [address], [facility], [address] [place] [address] Office: [phone] Charges/Coding Visit Charges Inpatient E&M: 45006 Subs Hosp L2
--- NOTE | 2025-03-18 09:16 | PCM.PN.HOSP ---
Subjective Subjective Per nursing staff had multiple bowel movements overnight Objective Data Objective Data Vital Signs: Vital Signs Temp Pulse Resp BP Pulse Ox O2 Del Method 97.7 F L 96 18 134/69 H 94 Room Air 03/18/25 09:04 03/18/25 09:13 03/18/25 09:04 03/18/25 09:04 03/18/25 09:04 03/18/25 09:06 Oxygen Delivery Method Room Air Weight: 88 lb 13.541 oz Body Mass Index (BMI) 16.7 Intake & Output: Intake and Output for Last 24 Hours 03/17/25 03/18/25 03/19/25 03:59 03:59 03:59 Intake Total 2131.75 / 2131.75 2050 / 2050 100 / 100 Output Total 1300 / 1300 2300 / 2300 Balance 831.75 / 831.75 -250 / -250 100 / 100 Lab / Micro Data 03/18/25 05:44 03/18/25 05:44 Labs: Laboratory Results - last 24 hr 03/18/25 05:44: WBC 6.8, RBC 3.03 L, Hgb 9.6 L, Hct 27.6 L, MCV 91.1, MCH 31.7, MCHC 34.8, RDW Std Deviation 45.2 H, RDW Coeff of Pretty 13.5, Plt Count 143 L, MPV 11.2, Immature Gran % (Auto) 0.400, Neut % (Auto) 72.2 H, Lymph % (Auto) 11.7 L, [place] % (Auto) 13.3 H, Eos % (Auto) 2.1, Baso % (Auto) 0.3, Absolute Neuts (auto) 4.9, Absolute Lymphs (auto) 0.79 L, Nucleated RBC % 0, Sodium 143, Potassium 3.1 L, Chloride 104, Carbon Dioxide 33.4 H, Anion Gap 5, BUN < 2 L, Creatinine 0.22 L, Estim Creat Clear Calc 39.85 L, Est GFR (MDRD) Non-Af 121, BUN/Creatinine Ratio UNABLE TO CALCULATE L, Glucose 102 H, Calcium 8.0 Micro: Microbiology 03/11/25 13:51 Blood Culture (Wb) - Anticubital Left Blood Culture - Final No growth in 5 days. 03/11/25 13:35 Blood Culture (Wb) - Anticubital Right Blood Culture - Final No growth in 5 days. 03/11/25 13:50 Urine, Clean Catch Urine Culture - Final Escherichia coli Radiography Diagnostic Testing: Radiology Impression KUB X-Ray 03/17/25 14:05 IMPRESSION: Persistent contrast in the colon although this has improved as compared to prior study. Residual mild colonic dilatation. Reading Location: [place] [address] Rhythm Strip Rhythm Strip: Sinus Tach Rate: 140 Ectopy: None (Tachycardia for about an hour prior to my arrival starting the 120s and the 140s.) Physical Exam Narrative General: Alert, Oriented x3, Cooperative, No apparent distress HEENT: Atraumatic, PERRLA, EOMI, Normocephalic Oral: Moist Mucosa Neck: Supple, No JVD Lungs: Diminished, Normal air movement, No rhonchi, No wheeze, No rales Cardiovascular: Tachycardic, Regular Rhythm, Normal S1, Normal S2, No murmurs Abdomen: Soft, nontender, Non-Distended, No Hepato-splenomegaly Extremities: No edema, Capillary Refill Less than 3 Seconds Skin: No rashes, No breakdown Musculoskeletal: No Tenderness to Palpation of Joints or Extremities Neurological: Chronic neurological dysfunction from her transverse myelitis she does have a little bit of movement in her upper extremities Psych/Mental Status: Normal Affect, Appropriate Assessment & Plan Assessment/Plan (1) Acute upper abdominal pain: (2) Tachycardia: (3) Hypokalemia due to excessive gastrointestinal loss of potassium: (4) Hypoglycemia: PLAN: Plan Acute upper abdominal pain/E. coli UTI -Ileus versus enteritis versus small bowel obstruction -Abdomen is nondistended but is tender on the left. Notable bowel dilation on the left. -Given her history of small bowel obstruction requiring surgery, will ask for general surgery to evaluate and offer recommendations. -Patient not actively vomiting so I feel NG tube can be avoided at this time. She will be NPO. -Antiemetics and IV fluids and pain control. 03/12: Patient with no nausea/vomiting or diarrhea since admission. Abdomen soft and nondistended with minimal tenderness to palpation. Appears most consistent with ileus versus enteritis as opposed to SBO, but will await surgery recommendations before initiating diet. Continue IV antiemetics, maintenance IV fluids and pain control as needed. 03/13/2025: Appreciate general surgery's assistance, small bowel follow-through is pending 03/14/2025: I took 22 hours for contrast to make it into the colon, indicating significantly slow transit and does not rule out a partial small bowel obstruction. General surgery is going to attempt enema today 03/15/2025: If general surgery agrees may benefit from Reglan given the lack of motility. Will do 5 days of Rocephin to complete treatment of her UTI. 03/16/2025: Still no return of bowel function she is only had 1 days worth of IV Reglan will continue to monitor. Appreciate general surgery's assistance 03/17/2025: Had 2 large bowel movements yesterday, will increase her diet to a full liquid diet, continue with IV Reglan. 03/18/2025: Completed Rocephin, had bowel movements overnight. Tachycardia -Began about an hour prior to my initial assessment. Appeared to be sinus tachycardia. -Initial plan is to put the patient on MedSurg until I knew that she was having sustained sinus tachycardia. Vest she will be placed on the progressive care unit for further monitoring. -I suspect this is reactive given the abdominal issues but if seems to be refractory then may need to do additional cardiac testing. -She is not demonstrating any symptoms suggesting acute coronary syndrome at this time. 03/12: Overnight had sustained tachycardia with heart rate in the 150s. Overnight physician noted that twelve-lead EKG appeared consistent with SVT. She was given 2 L of IV fluids and given a dose of IV Lopressor 5 mg. Heart rate much improved to 100-110 this morning. Continue cardiac monitoring. 03/13/2025: Mean arterial pressures are stable no significant concern at this time as her sinus tachycardia is likely related to her abdominal discomfort, she does have a very mild UTI so we will start antibiotics today but by no means is she considered septic 03/14/2025: Heart rate is improved periodically tachycardic likely related to GI discomfort 03/17/2025: Transition to p.o. metoprolol 12.5 mg twice daily 03/18/2025: Increase metoprolol to 25 mg p.o. twice daily Hypokalemia due to GI losses -Replaced in the emergency room. Will continue to monitor. Hypoglycemia 11/9: Blood glucose 41 on BMP this morning. POC glucose 36. Given D10 bolus with repeat blood sugar 175, however that downtrended back to 75 one hour later. Etiology unclear. Not diabetic and not on insulin or other diabetic medications. LFTs normal and no liver abnormalities noted on CT abdomen pelvis on admit. Suspect acute consumption from likely enteritis as above is contributing. Giving maintenance IVF of D5 LR 75 cc/h for now until general surgery evaluates the patient as above. Hypoglycemia protocol in place. 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 Wheelchair at baseline. She does have history of decubitus ulcers but the patient's at bedside that she does not have any at this time but CAT scan imaging commented on the possible development of decubitus ulcers. Wound care consulted. Chronic pain/anxiety/depression: Continue with oxycodone. Patient does have pain pump. Continue with gabapentin. Continue with home mental health meds DVT: Lovenox Charges/Coding Visit Charges Inpatient E&M: 35008 Subs Hosp L2
[2025-03-18 09:17] LABS: Magnesium 1.8 mg/dL (1.5-2.2)
[2025-03-18] MEDS: Potassium Chloride Oral Tablet 20 MEQ 60 MEQ PO (10:09)
--- NOTE | 2025-03-18 15:44 | TREXTCAR_ITS ---
Diet Diet Order/Speech Therapy: INPATIENT Hospital Diet / Speech Therapy Order(s) 03/18/25 08:55 Diet: Regular - General Type of Dietary Supplement:: Ensure Clear Diet Comments: 240mL mixed millan ensure clear with breakfast and dinner Speech Therapy Comments: sips/chips/meds ok Routine Orders/Code Status Routine Lab Work: CBC and BMP Code Status: Full Code DC O2, CPAP, BIPAP needs Home O2 Discharge instructions: No Wound(s) sacrum: Wound Type: shearing Dressing Change: Triad with dry dressing Therapies Physical Therapy: Eval and Treat Occupational Therapy: Eval and Treat Problem/Diagnosis (1) Ileus: Status: Acute Code(s): K56.7 - Ileus, unspecified Plan Acute upper abdominal pain/E. coli UTI -Ileus versus enteritis versus small bowel obstruction -Abdomen is nondistended but is tender on the left. Notable bowel dilation on the left. -Given her history of small bowel obstruction requiring surgery, will ask for general surgery to evaluate and offer recommendations. -Patient not actively vomiting so I feel NG tube can be avoided at this time. She will be NPO. -Antiemetics and IV fluids and pain control. 03/12: Patient with no nausea/vomiting or diarrhea since admission. Abdomen soft and nondistended with minimal tenderness to palpation. Appears most consistent with ileus versus enteritis as opposed to SBO, but will await surgery recommendations before initiating diet. Continue IV antiemetics, maintenance IV fluids and pain control as needed. 03/13/2025: Appreciate general surgery's assistance, small bowel follow-through is pending 03/14/2025: I took 22 hours for contrast to make it into the colon, indicating significantly slow transit and does not rule out a partial small bowel obstruction. General surgery is going to attempt enema today 03/15/2025: If general surgery agrees may benefit from Reglan given the lack of motility. Will do 5 days of Rocephin to complete treatment of her UTI. 03/16/2025: Still no return of bowel function she is only had 1 days worth of IV Reglan will continue to monitor. Appreciate general surgery's assistance 03/17/2025: Had 2 large bowel movements yesterday, will increase her diet to a full liquid diet, continue with IV Reglan. 03/18/2025: Completed Rocephin, had bowel movements overnight. Tachycardia -Began about an hour prior to my initial assessment. Appeared to be sinus tachycardia. -Initial plan is to put the patient on MedSurg until I knew that she was having sustained sinus tachycardia. Vest she will be placed on the progressive care unit for further monitoring. -I suspect this is reactive given the abdominal issues but if seems to be refractory then may need to do additional cardiac testing. -She is not demonstrating any symptoms suggesting acute coronary syndrome at this time. 03/12: Overnight had sustained tachycardia with heart rate in the 150s. [facility] physician noted that twelve-lead EKG appeared consistent with SVT. She was given 2 L of IV fluids and given a dose of IV Lopressor 5 mg. Heart rate much improved to 100-110 this morning. Continue cardiac monitoring. 03/13/2025: Mean arterial pressures are stable no significant concern at this time as her sinus tachycardia is likely related to her abdominal discomfort, she does have a very mild UTI so we will start antibiotics today but by no means is she considered septic 03/14/2025: Heart rate is improved periodically tachycardic likely related to GI discomfort 03/17/2025: Transition to p.o. metoprolol 12.5 mg twice daily 03/18/2025: Increase metoprolol to 25 mg p.o. twice daily Hypokalemia due to GI losses -Replaced in the emergency room. Will continue to monitor. Hypoglycemia 03/12: Blood glucose 41 on BMP this morning. POC glucose 36. Given D10 bolus with repeat blood sugar 175, however that downtrended back to 75 one hour later. Etiology unclear. Not diabetic and not on insulin or other diabetic medications. LFTs normal and no liver abnormalities noted on CT abdomen pelvis on admit. Suspect acute consumption from likely enteritis as above is contributing. Giving maintenance IVF of D5 LR 75 cc/h for now until general surgery evaluates the patient as above. Hypoglycemia protocol in place. 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 Wheelchair at baseline. She does have history of decubitus ulcers but the patient's at bedside that she does not have any at this time but CAT scan imaging commented on the possible development of decubitus ulcers. Wound care consulted. Chronic pain/anxiety/depression: Continue with oxycodone. Patient does have pain pump. Continue with gabapentin. Continue with home mental health meds DVT: Lovenox Allergies/Procedures Done in Hospital Allergies ziconotide (From Prialt) Allergy (Severe, Verified 01/16/25 11:01) Other seizure like activity Procedures: None Type of Care/Length of Stay Estimated LOS: Convalescent Care Less Than 30 days Type of Care Needed: Skilled Rehab Potential: Good Prognosis: Good Additional Orders/Day of Discharge Day of Discharge: 03/18/25 Dietary and Speech Recommendations Dietitian Recommendations/Changes: Recommend advanced diet as tolerated to regular. Will order 240mL mixed millan ensure clear with breakfast and dinner. As diet is advanced recommend 240mL ensure plus high protein with breakfast and dinner. Will monitor weight trends. Discharge Plan Admission Admit Date/Time: 03/11/25 17:01 Attending Provider: Juan Daniel Le Primary Care Provider: Ye Hoffman Consulting Providers: Jarred Jaramillo; Carlos Munoz; Daniele Thomsa Discharge Orders/Prescriptions Prescriptions: New metoprolol tartrate 25 mg Tablet 25 mg PO BID Qty: 0 0RF metoclopramide HCl [Reglan] 5 mg tablet 5 mg PO Q8H Qty: 1 0RF Continued trazodone 100 MG tablet 100 mg PO QHS Qty: 30 0RF gabapentin 800 MG tablet 800 mg PO 4X/DAYCM Qty: 30 0RF clonidine HCl 0.2 mg Tablet 0.2 mg PO QHS duloxetine [Cymbalta] 60 mg Capsule,Delayed Release(Dr/Ec) 60 mg PO DAILY Rx Instructions: WITH 30 MG TOTAL DAILY DOSE 90MG duloxetine 30 mg capsule,delayed release(DR/EC) 30 mg PO DAILY Rx Instructions: WITH 60MG TOTAL DAILY DOSE 90MG oxycodone 5 mg Tablet 15 mg PO Q6 2 Days Qty: 8 0RF naproxen 375 mg tablet 375 mg PO BID PAIN PUMP (INFORMATIONAL USE ONLY-PATIENT HAS HYDROMORPHONE PUMP) Patient Comments: has baclofen and hydromorphone Referrals / Follow Up: Ye Hoffman MD [Primary Care Provider, Family Practice] Disposition Disposition (needs filled in before D/C Order can be placed): [facility]
--- NOTE | 2025-03-18 15:53 | CASEMGMT ---
7000 completed in the [facility] successfully
[2025-03-19] VITALS (9 sets, daily range): BP systolic 101–158; BP diastolic 54–87; PULSE 69–84; RESP 16–17; TEMP 36.6–36.8; O2SAT 94–96
[2025-03-19] MEDS: 0.9% Saline Lock 10 ML Syringe IV ×4 (05:49→23:48)
[2025-03-19 05:56] LABS: Hematocrit 22.8 % (37-47); Hemoglobin 7.7 g/dL (12.0-15.0); Immature Granulocytes Count 0.030 X10^3/uL (0.0-0.0); Mean Corp Hgb Conc 33.8 g/dL (32-36); Mean Corpuscular Volume 93.4 fL (81-99); Mean Platelet Vol. 11.6 fl (6.2-12.0); NRBC Flagged by Analyzer 0 % (0-5); Platelet Count 154 K/mm3 (150-450); RBC Distribution Width CV 13.9 % (11.6-14.6); RBC Distribution Width SD 47.3 fl (35.1-43.9); Red Blood Count 2.44 M/mm3 (4.2-5.4); White Blood Count 6.7 K/mm3 (4.4-11.0)
[2025-03-19 06:30] LABS: Anion Gap 4 (5-15); BUN 3 mg/dL (4-19); BUN/Creat Ratio 13.2 RATIO (10-20); Calcium,Total 8.3 mg/dL (7.6-11.0); Carbon Dioxide 32.1 mmol/L (21.0-32.0); Chloride 101 mmol/L (98-108); Estimated Creatinine Clearance 39.85 ml/min (50-250); Glucose 96 mg/dL (70-99); Potassium 4.1 mmol/L (3.3-5.1)
--- NOTE | 2025-03-19 09:53 | PN.HOSP_ITS ---
Subjective Subjective Hemoglobin down today but she feels fine. Will obtain a Hemoccult and repeat H&H in the afternoon Objective Data Objective Data Vital Signs: Vital Signs Temp Pulse Resp BP Pulse Ox O2 Del Method 98.3 F 84 16 101/64 94 Room Air 03/19/25 08:09 03/19/25 08:13 03/19/25 08:09 03/19/25 08:09 03/19/25 08:09 03/19/25 08:09 Oxygen Delivery Method Room Air Weight: 88 lb 13.541 oz Body Mass Index (BMI) 16.7 Intake & Output: Intake and Output for Last 24 Hours 03/18/25 03/19/25 03/20/25 03:59 03:59 03:59 Intake Total 2050 / 2050 2361.25 / 2361.25 300 / 300 Output Total 2300 / 2300 2900 / 2900 1000 / 1000 Balance -250 / -250 -538.75 / -538.75 -700 / -700 Lab / Micro Data 03/19/25 05:08 03/19/25 05:08 Labs: Laboratory Results - last 24 hr 03/19/25 05:08: WBC 6.7, RBC 2.44 L, Hgb 7.7 L, Hct 22.8 L, MCV 93.4, MCH 31.6, MCHC 33.8, RDW Std Deviation 47.3 H, RDW Coeff of Pretty 13.9, Plt Count 154, MPV 11.6, Immature Gran % (Auto) 0.400, Neut % (Auto) 76.8 H, Lymph % (Auto) 10.1 L, [place] % (Auto) 9.1, Eos % (Auto) 3.3, Baso % (Auto) 0.3, Absolute Neuts (auto) 5.2, Absolute Lymphs (auto) 0.68 L, Nucleated RBC % 0, Sodium 137, Potassium 4.1, Chloride 101, Carbon Dioxide 32.1 H, Anion Gap 4 L, BUN 3 L, Creatinine 0.25 L, Estim Creat Clear Calc 39.85 L, Est GFR (MDRD) Non-Af 117, BUN/Creatinine Ratio 13.2, Glucose 96, Calcium 8.3 Micro: Microbiology 03/11/25 13:51 Blood Culture (Wb) - Anticubital Left Blood Culture - Final No growth in 5 days. 03/11/25 13:35 Blood Culture (Wb) - Anticubital Right Blood Culture - Final No growth in 5 days. 03/11/25 13:50 Urine, Clean Catch Urine Culture - Final Escherichia coli Rhythm Strip Rhythm Strip: Sinus Tach Rate: 140 Ectopy: None (Tachycardia for about an hour prior to my arrival starting the 120s and the 140s.) Physical Exam Narrative General: Alert, Oriented x3, Cooperative, No apparent distress HEENT: Atraumatic, PERRLA, EOMI, Normocephalic Oral: Moist Mucosa Neck: Supple, No JVD Lungs: Diminished, Normal air movement, No rhonchi, No wheeze, No rales Cardiovascular: Regular rate, Regular Rhythm, Normal S1, Normal S2, No murmurs Abdomen: Soft, nontender, Non-Distended, No Hepato-splenomegaly Extremities: No edema, Capillary Refill Less than 3 Seconds Skin: No rashes, No breakdown Musculoskeletal: No Tenderness to Palpation of Joints or Extremities Neurological: Chronic neurological dysfunction from her transverse myelitis she does have a little bit of movement in her upper extremities Psych/Mental Status: Normal Affect, Appropriate Assessment & Plan Assessment/Plan (1) Ileus: PLAN: Plan Acute upper abdominal pain/E. coli UTI -Ileus versus enteritis versus small bowel obstruction -Abdomen is nondistended but is tender on the left. Notable bowel dilation on the left. -Given her history of small bowel obstruction requiring surgery, will ask for general surgery to evaluate and offer recommendations. -Patient not actively vomiting so I feel NG tube can be avoided at this time. She will be NPO. -Antiemetics and IV fluids and pain control. 03/12: Patient with no nausea/vomiting or diarrhea since admission. Abdomen soft and nondistended with minimal tenderness to palpation. Appears most consistent with ileus versus enteritis as opposed to SBO, but will await surgery recommendations before initiating diet. Continue IV antiemetics, maintenance IV fluids and pain control as needed. 03/13/2025: Appreciate general surgery's assistance, small bowel follow-through is pending 03/14/2025: I took 22 hours for contrast to make it into the colon, indicating significantly slow transit and does not rule out a partial small bowel obstruction. General surgery is going to attempt enema today 03/15/2025: If general surgery agrees may benefit from Reglan given the lack of motility. Will do 5 days of Rocephin to complete treatment of her UTI. 03/16/2025: Still no return of bowel function she is only had 1 days worth of IV Reglan will continue to monitor. Appreciate general surgery's assistance 03/17/2025: Had 2 large bowel movements yesterday, will increase her diet to a full liquid diet, continue with IV Reglan. 03/18/2025: Completed Rocephin, had bowel movements overnight. 03/19/2025: Continue with Reglan, however she did have a drop in her hemoglobin with an unclear etiology at this time Tachycardia -Began about an hour prior to my initial assessment. Appeared to be sinus tachycardia. -Initial plan is to put the patient on MedSurg until I knew that she was having sustained sinus tachycardia. Vest she will be placed on the progressive care unit for further monitoring. -I suspect this is reactive given the abdominal issues but if seems to be refractory then may need to do additional cardiac testing. -She is not demonstrating any symptoms suggesting acute coronary syndrome at this time. 03/12: Overnight had sustained tachycardia with heart rate in the 150s. Overnight physician noted that twelve-lead EKG appeared consistent with SVT. She was given 2 L of IV fluids and given a dose of IV Lopressor 5 mg. Heart rate much improved to 100-110 this morning. Continue cardiac monitoring. 03/13/2025: Mean arterial pressures are stable no significant concern at this time as her sinus tachycardia is likely related to her abdominal discomfort, she does have a very mild UTI so we will start antibiotics today but by no means is she considered septic 03/14/2025: Heart rate is improved periodically tachycardic likely related to GI discomfort 03/17/2025: Transition to p.o. metoprolol 12.5 mg twice daily 03/18/2025: Increase metoprolol to 25 mg p.o. twice daily 03/19/2025: Tachycardia has resolved with resumption of her clonidine and the metoprolol Hypokalemia due to GI losses -Replaced in the emergency room. Will continue to monitor. Hypoglycemia 03/12: Blood glucose 41 on BMP this morning. POC glucose 36. Given D10 bolus with repeat blood sugar 175, however that downtrended back to 75 one hour later. Etiology unclear. Not diabetic and not on insulin or other diabetic medications. LFTs normal and no liver abnormalities noted on CT abdomen pelvis on admit. Suspect acute consumption from likely enteritis as above is contributing. Giving maintenance IVF of D5 LR 75 cc/h for now until general surgery evaluates the patient as above. Hypoglycemia protocol in place. 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 Wheelchair at baseline. She does have history of decubitus ulcers but the patient's at bedside that she does not have any at this time but CAT scan imaging commented on the possible development of decubitus ulcers. Wound care consulted. Chronic pain/anxiety/depression: Continue with oxycodone. Patient does have pain pump. Continue with gabapentin. Continue with home mental health meds Anemia Unclear as to the etiology at the moment will obtain Hemoccult and repeat this afternoon. Given the severity of her constipation could look for the stercoral ulcer, however she is also been iron deficient in the past due to chronic slow losses from rectal bleeding. Will check iron studies DVT: Lovenox Charges/Coding Visit Charges Inpatient E&M: 70074 Subs Hosp L2
--- NOTE | 2025-03-19 10:17 | PCM.PN.SRG ---
Subjective Subjective Patient having bowel function did also resolved with the lactulose enema yesterday. Patient tolerating diet. Objective Data Objective Data Vital Signs: Vital Signs Temp Pulse Resp BP Pulse Ox O2 Del Method 98.3 F 84 16 101/64 94 Room Air 03/19/25 08:09 03/19/25 08:13 03/19/25 08:09 03/19/25 08:09 03/19/25 08:09 03/19/25 08:09 Oxygen Delivery Method Room Air Weight: 88 lb 13.541 oz Body Mass Index (BMI) 16.7 Intake & Output: Intake and Output for Last 24 Hours 03/17/25 03/18/25 03/19/25 23:59 23:59 23:59 Intake Total 1730 / 2530 2260 / 2260 1201.25 / 1201.25 Output Total 1300 / 2300 3900 / 3900 1000 / 1000 Balance 430 / 230 -1640 / -1640 201.25 / 201.25 Lab / Micro Data 03/19/25 05:08 03/19/25 05:08 Labs: Laboratory Results - last 24 hr 03/19/25 05:08: WBC 6.7, RBC 2.44 L, Hgb 7.7 L, Hct 22.8 L, MCV 93.4, MCH 31.6, MCHC 33.8, RDW Std Deviation 47.3 H, RDW Coeff of Pretty 13.9, Plt Count 154, MPV 11.6, Immature Gran % (Auto) 0.400, Neut % (Auto) 76.8 H, Lymph % (Auto) 10.1 L, [place] % (Auto) 9.1, Eos % (Auto) 3.3, Baso % (Auto) 0.3, Absolute Neuts (auto) 5.2, Absolute Lymphs (auto) 0.68 L, Nucleated RBC % 0, Sodium 137, Potassium 4.1, Chloride 101, Carbon Dioxide 32.1 H, Anion Gap 4 L, BUN 3 L, Creatinine 0.25 L, Estim Creat Clear Calc 39.85 L, Est GFR (MDRD) Non-Af 117, BUN/Creatinine Ratio 13.2, Glucose 96, Calcium 8.3 Micro: Microbiology 03/11/25 13:51 Blood Culture (Wb) - Anticubital Left Blood Culture - Final No growth in 5 days. 03/11/25 13:35 Blood Culture (Wb) - Anticubital Right Blood Culture - Final No growth in 5 days. 03/11/25 13:50 Urine, Clean Catch Urine Culture - Final Escherichia coli Rhythm Strip Rhythm Strip: Sinus Tach Rate: 140 Ectopy: None (Tachycardia for about an hour prior to my arrival starting the 120s and the 140s.) Physical Exam GI GI Narrative: Abdomen- soft, nondistended nontender, Right lower quadrant subcutaneous pump, James stoma Assessment & Plan Assessment/Plan (1) Ileus: PLAN: Patient tolerating diet Continue Reglan per primary No surgical intervention is planned at this time?okay to DC per surgical standpoint. Jes Blake M.D. Pager: [phone] [facility] [address] [place] [address], [address] [place] [address] Office: [phone] Charges/Coding Visit Charges Inpatient E&M: 88888 Subs Hosp L2
[2025-03-19 11:09] LABS: Ferritin 101 ng/mL (22-378); Iron 11 ug/dL (50-170); Iron Binding Capacity,Unsat 138 ug/dL (228-428)
[2025-03-19 11:42] LABS: Iron Binding Capacity,Total 149 ug/dL (250-450)
[2025-03-19 12:05] LABS: Hemoglobin 8.4 g/dL (12.0-15.0)
[2025-03-19] MEDS: Sodium Ferric Gluconat/Sucrose 250 MG in 0.9% Normal Saline (250mL Bag) 250 ML 135 MG IV (17:54)
[2025-03-20] VITALS (9 sets, daily range): BP systolic 117–155; BP diastolic 60–77; PULSE 70–80; RESP 16–18; TEMP 36.7–36.8; O2SAT 94–96
[2025-03-20 06:05] LABS: Hematocrit 22.5 % (37-47); Hemoglobin 7.7 g/dL (12.0-15.0); Immature Granulocytes Count 0.030 X10^3/uL (0.0-0.0); Mean Corp Hgb Conc 34.2 g/dL (32-36); Mean Corpuscular Volume 91.8 fL (81-99); Mean Platelet Vol. 11.3 fl (6.2-12.0); NRBC Flagged by Analyzer 0 % (0-5); Platelet Count 182 K/mm3 (150-450); RBC Distribution Width CV 13.9 % (11.6-14.6); RBC Distribution Width SD 47.1 fl (35.1-43.9); Red Blood Count 2.45 M/mm3 (4.2-5.4); White Blood Count 5.0 K/mm3 (4.4-11.0)
[2025-03-20 06:35] LABS: Anion Gap 5 (5-15); BUN 6 mg/dL (4-19); BUN/Creat Ratio 21.3 RATIO (10-20); Calcium,Total 8.6 mg/dL (7.6-11.0); Carbon Dioxide 31.0 mmol/L (21.0-32.0); Chloride 103 mmol/L (98-108); Estimated Creatinine Clearance 39.85 ml/min (50-250); Glucose 81 mg/dL (70-99); Potassium 4.4 mmol/L (3.3-5.1)
--- NOTE | 2025-03-20 09:03 | PCM.PN.SRG ---
Subjective Subjective Patient evaluated resting comfortably in bed. She notes feeling much improved. She notes her abdomen feels back to its normal. She states she has not had a bowel movement since Thursday. Shr did receive an iron transfusion yesterday. She denies any further nausea and vomiting. She is tolerating a regular diet without any issues. Objective Data Objective Data Vital Signs: Vital Signs Temp Pulse Resp BP Pulse Ox O2 Del Method 98.1 F 73 16 122/60 H 94 Room Air 03/20/25 07:46 03/20/25 08:05 03/20/25 07:46 03/20/25 08:05 03/20/25 07:46 03/20/25 07:49 Oxygen Delivery Method Room Air Weight: 88 lb 13.541 oz Body Mass Index (BMI) 16.7 Intake & Output: Intake and Output for Last 24 Hours 03/18/25 03/19/25 03/20/25 23:59 23:59 23:59 Intake Total 2260 / 2260 3143.75 / 3143.75 970 / 970 Output Total 3900 / 3900 3600 / 3600 1200 / 1200 Balance -1640 / -1640 -456.25 / -456.25 -230 / -230 Lab / Micro Data 03/20/25 05:28 03/20/25 05:28 Labs: Laboratory Results - last 24 hr 03/19/25 05:08: Iron 11 L, TIBC 149 L, Iron Saturation 7.4 L, Unsaturated IBC 138 L, Ferritin 101 03/19/25 11:56: Hgb 8.4 L 03/20/25 05:28: WBC 5.0, RBC 2.45 L, Hgb 7.7 L, Hct 22.5 L, MCV 91.8, MCH 31.4, MCHC 34.2, RDW Std Deviation 47.1 H, RDW Coeff of Pretty 13.9, Plt Count 182, MPV 11.3, Immature Gran % (Auto) 0.600, Neut % (Auto) 71.2 H, Lymph % (Auto) 12.2 L, [place] % (Auto) 13.0 H, Eos % (Auto) 2.8, Baso % (Auto) 0.2, Absolute Neuts (auto) 3.6, Absolute Lymphs (auto) 0.61 L, Nucleated RBC % 0, Sodium 138, Potassium 4.4, Chloride 103, Carbon Dioxide 31.0, Anion Gap 5, BUN 6, Creatinine 0.28 L, Estim Creat Clear Calc 39.85 L, Est GFR (MDRD) Non-Af 114, BUN/Creatinine Ratio 21.3 H, Glucose 81, Calcium 8.6 Micro: Microbiology 03/11/25 13:51 Blood Culture (Wb) - Anticubital Left Blood Culture - Final No growth in 5 days. 03/11/25 13:35 Blood Culture (Wb) - Anticubital Right Blood Culture - Final No growth in 5 days. 03/11/25 13:50 Urine, Clean Catch Urine Culture - Final Escherichia coli Rhythm Strip Rhythm Strip: Sinus Tach Rate: 140 Ectopy: None (Tachycardia for about an hour prior to my arrival starting the 120s and the 140s.) Physical Exam GI GI Narrative: Abdomen- soft, slight tenderness in the RUQ above her pain pump. Nondistended. Hypoactive bowel sounds. Assessment & Plan Assessment/Plan (1) Ileus: PLAN: I am following this patient in conjunction with Dr. Jaramillo. Labs reviewed. Patient to receive another iron infusion. Continue Reglan May need a laxative in addition to Reglan assist with bowel movements No surgical intervention is planned okay for discharge from surgical standpoint No follow-up is needed from our office Charges/Coding Visit Charges Inpatient E&M: 83200 Subs Hosp L2
--- NOTE | 2025-03-20 10:14 | CASEMGMT ---
Discharge Planning Updated sent via [facility] to [facility]. Karla Hilton DC Planning Asst.
--- NOTE | 2025-03-20 10:25 | WOUNDNOTE ---
wound photo: sacrum
[2025-03-20] MEDS: Sodium Ferric Gluconat/Sucrose 250 MG in 0.9% Normal Saline (250mL Bag) 250 ML 135 MG IV (10:50)
--- NOTE | 2025-03-20 11:33 | PHA.DC.MR.R ---
Pharmacy [place] Med Reconciliation Pharmacy Service has performed discharge medication reconciliation for this patient. The patient's discharge medication list was reviewed for discrepancies and discrepancies were resolved. Medications at Discharge Home Medications trazodone 100 mg tablet 100 mg PO QHS sleep #30 TABLETS 09/14/15 gabapentin 800 mg tablet 800 mg PO 4X/DAYCM neuropathy #30 tabs 04/21/19 clonidine HCl 0.2 mg tablet 0.2 mg PO QHS bp 09/04/20 duloxetine 60 mg capsule,delayed release (Cymbalta) 60 mg PO DAILY depression 01/14/21 duloxetine 30 mg capsule,delayed release 30 mg PO DAILY depression 03/31/24 oxycodone 5 mg tablet 15 mg (3 x 5 mg) PO Q6 pain 2 days #8 tabs 04/05/24 naproxen 375 mg tablet 375 mg PO BID pain 04/13/24 PAIN PUMP (INFORMATIONAL USE ONLY-PATIENT HAS HYDROMORPHONE PUMP) pain 03/11/25 metoclopramide HCl 5 mg tablet (Reglan) 5 mg PO Q8H #1 TAB 03/18/25 metoprolol tartrate 25 mg tablet 25 mg PO BID #0 tabs 03/18/25 ferrous gluconate 324 mg (38 mg iron) tablet 324 mg PO BID #60 tabs 03/20/25
--- NOTE | 2025-03-20 11:42 | CASEMGMT ---
EFE BASS updated patient that patient has order for discharge to go to [facility] for skilled level of care. Patient states she will have her daughter transport to [facility] at 6:00pm. Patient has no further questions or concerns. Signed med list received, EFE BASS udpated DC strategic planning director to notify [facility] and that patient's daughter will be taking her to [facility] this evening.
--- NOTE | 2025-03-20 11:46 | CASEMGMT ---
Discharge Planning Discharge orders and signed med list sent via [facility] to [facility]. Pts daughter will transport pt by personal vehicle at 5:30p. Nursing, RN CM, and pt updated. Karla Hilton DC Planning Asst.
--- NOTE | 2025-03-20 16:26 | PCM.DC.SUM ---
Providers Date of Admission: 03/11/25 Primary Care Physician: Ye Hoffman MD Consultations 03/11/25 17:46 Consult: General Surgery Routine Consulting Provider: Jarred Jaramillo Reason for Consult: ileus v SBO EMERGENT Consult: No MD Notified: Yes Date Notified: 03/11/25 Time Notified: 17:04 Method of Notification: Text Consult: Onc/Wound/waste specialist Routine Comment: Reason For Visit: N/V Diagnosis Discharge Diagnosis (1) Ileus: Status: Acute Code(s): K56.7 - Ileus, unspecified Medications at Discharge Home Medications trazodone 100 mg tablet 100 mg PO QHS sleep #30 TABLETS 09/14/15 gabapentin 800 mg tablet 800 mg PO 4X/DAYCM neuropathy #30 tabs 04/21/19 clonidine HCl 0.2 mg tablet 0.2 mg PO QHS bp 09/04/20 duloxetine 60 mg capsule,delayed release (Cymbalta) 60 mg PO DAILY depression 01/14/21 duloxetine 30 mg capsule,delayed release 30 mg PO DAILY depression 03/31/24 naproxen 375 mg tablet 375 mg PO BID pain 04/13/24 PAIN PUMP (INFORMATIONAL USE ONLY-PATIENT HAS HYDROMORPHONE PUMP) pain 03/11/25 metoclopramide HCl 5 mg tablet (Reglan) 5 mg PO Q8H #1 TAB 03/18/25 metoprolol tartrate 25 mg tablet 25 mg PO BID #0 tabs 03/18/25 ferrous gluconate 324 mg (38 mg iron) tablet 324 mg PO BID #60 tabs 03/20/25 oxycodone 5 mg tablet 15 mg (3 x 5 mg) PO Q6 pain 3 days #36 tabs 03/20/25 Hospital Course Operations None Procedures None Summary of Care Provided Minutes Spent on Discharge: 39 Hospital Course: Per HPI: MAGALI ANDREA, is a 74 F who presents with abdominal pain, nausea, vomiting and diarrhea. Symptoms began yesterday. Had been feeling fine beforehand. Became very intense leading her to come to the emergency room. She underwent a CAT scan that noted probable enteritis with small bowel distention and enhancement but could not develop developing small bowel obstruction. Patient states that her symptoms feel similar to when she has had a bowel obstruction in the past. In emergency room, she received morphine, Zofran, fentanyl and Reglan. The hospital service was contacted for admission. Upon my arrival it is noted that her heart rate was in the 140s. Upon further review admit it was noted that patient was tachycardic for an hour prior to my arrival. Patient states that she did have palpitations last night but none currently. She denies any chest pain. Hospital Course: Acute upper abdominal pain/E. coli UTI -Ileus versus enteritis versus small bowel obstruction -Abdomen is nondistended but is tender on the left. Notable bowel dilation on the left. -Given her history of small bowel obstruction requiring surgery, will ask for general surgery to evaluate and offer recommendations. -Patient not actively vomiting so I feel NG tube can be avoided at this time. She will be NPO. -Antiemetics and IV fluids and pain control. 03/12: Patient with no nausea/vomiting or diarrhea since admission. Abdomen soft and nondistended with minimal tenderness to palpation. Appears most consistent with ileus versus enteritis as opposed to SBO, but will await surgery recommendations before initiating diet. Continue IV antiemetics, maintenance IV fluids and pain control as needed. 03/13/2025: Appreciate general surgery's assistance, small bowel follow-through is pending 03/14/2025: I took 22 hours for contrast to make it into the colon, indicating significantly slow transit and does not rule out a partial small bowel obstruction. General surgery is going to attempt enema today 03/15/2025: If general surgery agrees may benefit from Reglan given the lack of motility. Will do 5 days of Rocephin to complete treatment of her UTI. 03/16/2025: Still no return of bowel function she is only had 1 days worth of IV Reglan will continue to monitor. Appreciate general surgery's assistance 03/17/2025: Had 2 large bowel movements yesterday, will increase her diet to a full liquid diet, continue with IV Reglan. 03/18/2025: Completed Rocephin, had bowel movements overnight. 03/19/2025: Continue with Reglan, however she did have a drop in her hemoglobin with an unclear etiology at this time 03/20/2025: She is doing well and having bowel function, I discussed with her the plan for discharge today and she expressed understanding of the risks and benefits of going to the care home and would like to go today. Will continue with Reglan 5 mg p.o. 3 times daily and this can be uptitrated, would recommend MiraLAX daily. Tachycardia -Began about an hour prior to my initial assessment. Appeared to be sinus tachycardia. -Initial plan is to put the patient on MedSurg until I knew that she was having sustained sinus tachycardia. Vest she will be placed on the progressive care unit for further monitoring. -I suspect this is reactive given the abdominal issues but if seems to be refractory then may need to do additional cardiac testing. -She is not demonstrating any symptoms suggesting acute coronary syndrome at this time. 03/12: Overnight had sustained tachycardia with heart rate in the 150s. Overnight physician noted that twelve-lead EKG appeared consistent with SVT. She was given 2 L of IV fluids and given a dose of IV Lopressor 5 mg. Heart rate much improved to 100-110 this morning. Continue cardiac monitoring. 03/13/2025: Mean arterial pressures are stable no significant concern at this time as her sinus tachycardia is likely related to her abdominal discomfort, she does have a very mild UTI so we will start antibiotics today but by no means is she considered septic 03/14/2025: Heart rate is improved periodically tachycardic likely related to GI discomfort 03/17/2025: Transition to p.o. metoprolol 12.5 mg twice daily 03/18/2025: Increase metoprolol to 25 mg p.o. twice daily 03/19/2025: Tachycardia has resolved with resumption of her clonidine and the metoprolol Hypokalemia due to GI losses -Replaced in the emergency room. Will continue to monitor. Hypoglycemia 03/12: Blood glucose 41 on BMP this morning. POC glucose 36. Given D10 bolus with repeat blood sugar 175, however that downtrended back to 75 one hour later. Etiology unclear. Not diabetic and not on insulin or other diabetic medications. LFTs normal and no liver abnormalities noted on CT abdomen pelvis on admit. Suspect acute consumption from likely enteritis as above is contributing. Giving maintenance IVF of D5 LR 75 cc/h for now until general surgery evaluates the patient as above. Hypoglycemia protocol in place. 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 Wheelchair at baseline. She does have history of decubitus ulcers but the patient's at bedside that she does not have any at this time but CAT scan imaging commented on the possible development of decubitus ulcers. Wound care consulted. Chronic pain/anxiety/depression: Continue with oxycodone. Patient does have pain pump. Continue with gabapentin. Continue with home mental health meds Anemia Unclear as to the etiology at the moment will obtain Hemoccult and repeat this afternoon. Given the severity of her constipation could look for the stercoral ulcer, however she is also been iron deficient in the past due to chronic slow losses from rectal bleeding. Iron studies demonstrated iron deficiency anemia she was given 2 doses of Venofer and was placed on oral iron replacement on discharge Physical Exam Narrative General: Alert, Oriented x3, Cooperative, No apparent distress HEENT: Atraumatic, PERRLA, EOMI, Normocephalic Oral: Moist Mucosa Neck: Supple, No JVD Lungs: Diminished, Normal air movement, No rhonchi, No wheeze, No rales Cardiovascular: Regular rate, Regular Rhythm, Normal S1, Normal S2, No murmurs Abdomen: Soft, nontender, Non-Distended, No Hepato-splenomegaly Extremities: No edema, Capillary Refill Less than 3 Seconds Skin: No rashes, No breakdown Musculoskeletal: No Tenderness to Palpation of Joints or Extremities Neurological: Chronic neurological dysfunction from her transverse myelitis she does have a little bit of movement in her upper extremities Psych/Mental Status: Normal Affect, Appropriate Weight / BMI Weight Weight: 88 lb 13.541 oz Body Mass Index (BMI) 16.7 ABG / Lab / Microbiology Data 03/20/25 05:28 03/20/25 05:28 Laboratory: Laboratory Results - last 24 hr 03/20/25 05:28: WBC 5.0, RBC 2.45 L, Hgb 7.7 L, Hct 22.5 L, MCV 91.8, MCH 31.4, MCHC 34.2, RDW Std Deviation 47.1 H, RDW Coeff of Pretty 13.9, Plt Count 182, MPV 11.3, Immature Gran % (Auto) 0.600, Neut % (Auto) 71.2 H, Lymph % (Auto) 12.2 L, [place] % (Auto) 13.0 H, Eos % (Auto) 2.8, Baso % (Auto) 0.2, Absolute Neuts (auto) 3.6, Absolute Lymphs (auto) 0.61 L, Nucleated RBC % 0, Sodium 138, Potassium 4.4, Chloride 103, Carbon Dioxide 31.0, Anion Gap 5, BUN 6, Creatinine 0.28 L, Estim Creat Clear Calc 39.85 L, Est GFR (MDRD) Non-Af 114, BUN/Creatinine Ratio 21.3 H, Glucose 81, Calcium 8.6 Microbiology: Microbiology 03/11/25 13:51 Blood Culture (Wb) - Anticubital Left Blood Culture - Final No growth in 5 days. 03/11/25 13:35 Blood Culture (Wb) - Anticubital Right Blood Culture - Final No growth in 5 days. 03/11/25 13:50 Urine, Clean Catch Urine Culture - Final Escherichia coli D/C Instructions DC O2, CPAP, BIPAP Needs Home O2 Discharge instructions: No Meaningful Use Info Meaningful Use Meaningful Use Diagnoses (Choose all that apply): None applicable Discharge Plan Admission Admit Date/Time: 03/11/25 17:01 Attending Provider: Juan Daniel Le Primary Care Provider: Ye Hoffman Consulting Providers: Jarred Jaramillo; Carlos Munoz; Daniele Thomas Instructions Additional Instructions / Restrictions: recommend daily miralax Discharge Orders/Prescriptions Prescriptions: New metoprolol tartrate 25 mg Tablet 25 mg PO BID Qty: 0 0RF metoclopramide HCl [Reglan] 5 mg tablet 5 mg PO Q8H Qty: 1 0RF ferrous gluconate 324 mg (38 mg iron) tablet 324 mg PO BID Qty: 60 0RF Continued trazodone 100 MG tablet 100 mg PO QHS Qty: 30 0RF gabapentin 800 MG tablet 800 mg PO 4X/DAYCM Qty: 30 0RF clonidine HCl 0.2 mg Tablet 0.2 mg PO QHS duloxetine [Cymbalta] 60 mg Capsule,Delayed Release(Dr/Ec) 60 mg PO DAILY Rx Instructions: WITH 30 MG TOTAL DAILY DOSE 90MG duloxetine 30 mg capsule,delayed release(DR/EC) 30 mg PO DAILY Rx Instructions: WITH 60MG TOTAL DAILY DOSE 90MG naproxen 375 mg tablet 375 mg PO BID PAIN PUMP (INFORMATIONAL USE ONLY-PATIENT HAS HYDROMORPHONE PUMP) Patient Comments: has baclofen and hydromorphone oxycodone 5 mg tablet 15 mg PO Q6 3 Days Qty: 36 0RF Referrals / Follow Up: Ye Hoffman MD [Primary Care Provider, Family Practice] Disposition Disposition (needs filled in before D/C Order can be placed): [facility] Facility Charges/Coding Visit Charges Inpatient E&M: 64868 Disch Hosp >30min
--- NOTE | 2025-03-20 17:59 | NURSING ---
report called o wvm
== END 2025-03-20 18:20 | disposition skilled nursing facility (03) | DRG 389 ==
LOC: ED 16:02 → PCU 17:37
PROVIDERS: Hospitalist; Emergency Provider Emergency Medicine; PCP Family Medicine; Visit Provider Family Medicine
DX: K56.7 Ileus, unspecified (principal); T83.518A Infection and inflammatory reaction due to other urinary catheter, initial encounter; G82.20 Paraplegia, unspecified; I47.10 Supraventricular tachycardia, unspecified; N39.0 Urinary tract infection, site not specified; F32.A Depression, unspecified; D50.9 Iron deficiency anemia, unspecified; E87.6 Hypokalemia; E86.0 Dehydration; E16.2 Hypoglycemia, unspecified; K52.9 Noninfective gastroenteritis and colitis, unspecified; F41.9 Anxiety disorder, unspecified; R03.1 Nonspecific low blood-pressure reading; B96.20 Unspecified Escherichia coli [E. coli] as the cause of diseases classified elsewhere; Z99.3 Dependence on wheelchair; Y84.8 Other medical procedures as the cause of abnormal reaction of the patient, or of later complication, without mention of misadventure at the time of the procedure; Z99.89 Dependence on other enabling machines and devices; G89.29 Other chronic pain; Z87.440 Personal history of urinary (tract) infections
CPT/HCPCS: 36415; 71045; 74018; 74019; 74177; 74250; 80048; 80053; 81001; 82728; 82962; 83540; 83550; 83605; 83735; 84100; 84443; 85018; 85025; 85027; 85610; 85730; 87040; 87077; 87086; 87088; 87186; 93005; 97110; 97162; 97166; 97530; 97535; 97803; 99285; Q9967; A4216; J2405; J2916

== ENCOUNTER 2025-04-26 12:36 | Day surgery (SDC) | payer MEDICARE, OTHER, SELFPAY ==
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
[2025-04-26] VITALS (7 sets, daily range): BP systolic 122–148; BP diastolic 50–76; PULSE 69–77; RESP 16–18; TEMP 36.7–37.4; O2SAT 98–100; BMI 18.1
--- OUTSIDE RECORDS SUMMARY | 2025-04-26 12:51 | XMS RPT_ITS | CCD ---
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 ####[facility] [address] [place], [address] Nucleated RBC (Bld) [#/Vol] 0 10*3/uL Normal 0-5 [facility] Comment on above: Performed By: #### L 100.0100, L500.2500, L501.5200 ####[facility] [address] [place], [address] Platelet mean volume (Bld) [Entitic vol] 11.3 fL Normal 6.2-12.0 [facility] Comment on above: Performed By: #### L 100.0100, L500.2500, L501.5200 ####[facility] [address] [place], [address] Platelets (Bld) [#/Vol] 113 10*3/uL Low 150-450 [facility] Comment on above: Performed By: #### L 100.0100, L500.2500, L501.5200 ####[facility] [address] [place], [address] RBC (Bld) [#/Vol] 3.08 10*6/uL Low 4.2-5.4 [facility] Comment on above: Performed By: #### L 100.0100, L500.2500, L501.5200 ####[facility] [address] [place], [address] RDW SD 47.4 fl High 35.1-43.9 [facility] Comment on above: Performed By: #### L 100.0100, L500.2500, L501.5200 ####[facility] [address] [place], [address] WBC (Bld) [#/Vol] 6.2 10*3/uL Normal 4.4-11.0 [facility] Comment on above: Performed By: #### L 100.0100, L500.2500, L501.5200 ####[facility] [address] [place], [address] Magnesiumon 03-14-2025 Magnesium [Mass/Vol] 2.2 mg/dL Normal 1.5-2.2 [facility] Comment on above: Performed By: #### L 100.0100, L500.2500, L501.5200 ####[facility] [address] [place], [address] Phosphoruson 03-14-2025 Phosphate [Mass/Vol] 1.5 mg/dL Low 2.7-4.5 [facility] Comment on above: Performed By: #### L 501.2300 ####[facility] [address] [place], [address] Abd Inc Decub and/or Erecton 03-13-2025 Abd Inc Decub and/or Erect Normal [facility] Basic Metabolic Profile (BMP )on 03-13-2025 BUN/CRE 28.8 RATIO High 1020 [facility] Comment on above: Performed By: #### L 100.0500, L500.2500 ####[facility] [address] [place], [address] Calcium [Mass/Vol] 7.3 mg/dL Low 7.6-11.0 [facility] Comment on above: Performed By: #### L 100.0500, L500.2500 ####[facility] [address] [place], [address] Chloride [Moles/Vol] 107 mmol/L Normal 98-108 [facility] Comment on above: Performed By: #### L 100.0500, L500.2500 ####[facility] [address] [place], [address] CO2 [Moles/Vol] 22.7 mmol/L Normal 21.0-32.0 [facility] Comment on above: Performed By: #### L 100.0500, L500.2500 ####[facility] [address] [place], [address] Creatinine [Mass/Vol] 0.34 mg/dL Low 0.70-1.20 [facility] Comment on above: Performed By: #### L 100.0500, L500.2500 ####[facility] [address] [place], [address] ECRCL 39.85 ml/min Low 50-250 [facility] Comment on above: Performed By: #### L 100.0500, L500.2500 ####[facility] [address] [place], [address] GAP 6 Normal 5-15 [facility] Comment on above: Performed By: #### L 100.0500, L500.2500 ####[facility] [address] [place], [address] GFR/1.73 sq M.predicted among non-blacks MDRD (S/P/Bld) [Vol rate/Area] 109 mL/min/{1.73_m2} Normal >60 [facility] Comment on above: Result Comment: mL/m in/1.73m2 CKD-EPI Creatinine Equation (2020) Performed By: #### L 100.0500, L500.2500 ####[facility] [address] [place], [address] Glucose [Mass/Vol] 94 mg/dL Normal 70-99 [facility] Comment on above: Performed By: #### L 100.0500, L500.2500 ####[facility] [address] [place], [address] Potassium [Moles/Vol] 3.2 mmol/L Low 3.3-5.1 [facility] Comment on above: Performed By: #### L 100.0500, L500.2500 ####[facility] [address] [place], [address] Sodium [Moles/Vol] 136 mmol/L Normal 133-145 [facility] Comment on above: Performed By: #### L 100.0500, L500.2500 ####[facility] [address] [place], [address] Urea nitrogen [Mass/Vol] 10 mg/dL Normal 4-19 [facility] Comment on above: Performed By: #### L 100.0500, L500.2500 ####[facility] [address] [place], [address] Bedside Glucoseon 03-13-2025 FINGERSTICK GLU 90 mg/dL Normal 74-106 [facility] Comment on above: Result Comment: LIAM HERNANDEZ OF PATIENT CARE PER NURSING PROTOCOL Performed By: #### L 501.080 ####[facility] [address] [place], [address] CBC-Complete Blood Cnt No Di ffon 03-13-2025 Erythrocyte distribution width (RBC) [Ratio] 12.8 % Normal 11.6-14.6 [facility] Comment on above: Performed By: #### L 100.0500, L500.2500 ####[facility] [address] [place], [address] Hematocrit (Bld) [Volume fraction] 27.9 % Low 37-47 [facility] Comment on above: Performed By: #### L 100.0500, L500.2500 ####[facility] [address] [place], [address] Hemoglobin (Bld) [Mass/Vol] 9.5 g/dL Low 12.0-15.0 [facility] Comment on above: Performed By: #### L 100.0500, L500.2500 ####[facility] [address] [place], [address] MCH (RBC) [Entitic mass] 32.2 pg High 27.0-32.0 [facility] Comment on above: Performed By: #### L 100.0500, L500.2500 ####[facility] [address] [place], [address] MCHC (RBC) [Mass/Vol] 34.1 g/dL Normal 32-36 [facility] Comment on above: Performed By: #### L 100.0500, L500.2500 ####[facility] [address] [place], [address] MCV (RBC) [Entitic vol] 94.6 fL Normal 81-99 [facility] Comment on above: Performed By: #### L 100.0500, L500.2500 ####[facility] [address] [place], [address] Platelet mean volume (Bld) [Entitic vol] 10.9 fL Normal 6.2-12.0 [facility] Comment on above: Performed By: #### L 100.0500, L500.2500 ####[facility] [address] [place], [address] Platelets (Bld) [#/Vol] 113 10*3/uL Low 150-450 [facility] Comment on above: Performed By: #### L 100.0500, L500.2500 ####[facility] [address] [place], [address] RBC (Bld) [#/Vol] 2.95 10*6/uL Low 4.2-5.4 [facility] Comment on above: Performed By: #### L 100.0500, L500.2500 ####[facility] [address] [place], [address] RDW SD 44.1 fl High 35.1-43.9 [facility] Comment on above: Performed By: #### L 100.0500, L500.2500 ####[facility] [address] [place], [address] WBC (Bld) [#/Vol] 6.2 10*3/uL Normal 4.4-11.0 [facility] Comment on above: Performed By: #### L 100.0500, L500.2500 ####[facility] [address] [place], [address] Culture, Blood (WB)on 2024 CUB Blood cultures x2, from two different sites No growth in 48 hours. Normal [facility] Comment on above: Performed By: #### L 500.4050, M200.1000, L503.6005, L300.3900, L300.4310, L100.0100 ####[facility] [address] [place], [address] Small Bowel Series Onlyon Small Bowel Series Only Normal [facility] Urine Cultureon 03-13-2025 URC Normal [facility] Comment on above: Performed By: #### L 400.0001, M100.2200 ####[facility] [address] [place], [address] 12 Lead EKGon 03-12-2025 12 Lead EKG Normal [facility] Bedside Glucoseon 03-12-2025 FINGERSTICK GLU 87 mg/dL Normal [address] [place] [address] Comment on above: Result Comment: LIAM GEMENT OF PATIENT CARE PER NURSING PROTOCOL Performed By: #### L 501.080 ####[facility] [address] [place], [address] FINGERSTICK GLU 75 mg/dL Normal [address] [place] [address] Comment on above: Result Comment: LIAM GEMENT OF PATIENT CARE PER NURSING PROTOCOL Performed By: #### L 501.080 ####[facility] [address] [place], [address] FINGERSTICK GLU 175 mg/dL High [address] [place] [address] Comment on above: Result Comment: LIAM GEMENT OF PATIENT CARE PER NURSING PROTOCOL Performed By: #### L 501.080 ####[facility] [address] [place], [address] FINGERSTICK GLU 36 mg/dL Invalid Interpretation Code [address] [place] [address] Comment on above: Result Comment: LIAM GEMENT OF PATIENT CARE PER NURSING PROTOCOL Performed By: #### L 501.080 ####[facility] [address] [place], [address] CBC W/Diff, Automatedon 11-0 SMEAR COMMENT SCANNED Normal [facility] Comment on above: Performed By: #### L 100.0100, L501.9520, L500.4050 ####[facility] [address] [place], [address] Comprehensive Metabolic Prof ilon 03-12-2025 Albumin [Mass/Vol] 3.1 g/dL Low 3.4-4.8 [facility] Comment on above: Performed By: #### L 100.0100, L501.9520, L500.4050 ####[facility] [address] [place], [address] Albumin/Globulin [Mass ratio] 1.5 {ratio} Normal 0.9-2.4 [facility] Comment on above: Performed By: #### L 100.0100, L501.9520, L500.4050 ####[facility] [address] [place], [address] ALK PHOS 39 U/L Normal 35-104 [facility] Comment on above: Performed By: #### L 100.0100, L501.9520, L500.4050 ####[facility] [address] [place], [address] ALT [Catalytic activity/Vol] 14 U/L Normal <=34 [facility] Comment on above: Performed By: #### L 100.0100, L501.9520, L500.4050 ####[facility] [address] [place], [address] AST [Catalytic activity/Vol] 33 U/L High <=31 [facility] Comment on above: Performed By: #### L 100.0100, L501.9520, L500.4050 ####[facility] [address] [place], [address] Bilirubin [Mass/Vol] 0.21 mg/dL Normal 0.00-1.30 [facility] Comment on above: Performed By: #### L 100.0100, L501.9520, L500.4050 ####[facility] [address] [place], [address] BUN/CRE 32.4 RATIO High 10-20 [facility] Comment on above: Performed By: #### L 100.0100, L501.9520, L500.4050 ####[facility] [address] [place], [address] Calcium [Mass/Vol] 7.2 mg/dL Low 7.6-11.0 [facility] Comment on above: Performed By: #### L 100.0100, L501.9520, L500.4050 ####[facility] [address] [place], [address] Chloride [Moles/Vol] 107 mmol/L Normal 98-108 [facility] Comment on above: Performed By: #### L 100.0100, L501.9520, L500.4050 ####[facility] [address] [place], [address] CO2 [Moles/Vol] 20.1 mmol/L Low 21.0-32.0 [facility] Comment on above: Performed By: #### L 100.0100, L501.9520, L500.4050 ####[facility] [address] [place], [address] Creatinine [Mass/Vol] 0.44 mg/dL Low 0.70-1.20 [facility] Comment on above: Performed By: #### L 100.0100, L501.9520, L500.4050 ####[facility] [address] [place], [address] ECRCL 39.85 ml/min Low 50-250 [facility] Comment on above: Performed By: #### L 100.0100, L501.9520, L500.4050 ####[facility] [address] [place], [address] GAP 10 Normal 5-15 [facility] Comment on above: Performed By: #### L 100.0100, L501.9520, L500.4050 ####[facility] [address] [place], [address] GFR/1.73 sq M.predicted among non-blacks MDRD (S/P/Bld) [Vol rate/Area] 102 mL/min/{1.73_m2} Normal >60 [facility] Comment on above: Result Comment: mL/m in/1.73m2 CKD-EPI Creatinine Equation (2020) Performed By: #### L 100.0100, L501.9520, L500.4050 ####[facility] [address] [place], [address] Globulin (S) [Mass/Vol] 2.0 g/dL Low 2.2-4.2 [facility] Comment on above: Performed By: #### L 100.0100, L501.9520, L500.4050 ####[facility] [address] [place], [address] Glucose [Mass/Vol] 41 mg/dL Invalid Interpretation Code 70-99 [facility] Comment on above: Result Comment: Crit ical Result(s) Called at: 0737 03/12/2025 by: EMELI??Results read back by same. Performed By: #### L 100.0100, L501.9520, L500.4050 ####[facility] [address] [place], [address] Potassium [Moles/Vol] 3.6 mmol/L Normal 3.3-5.1 [facility] Comment on above: Performed By: #### L 100.0100, L501.9520, L500.4050 ####[facility] [address] [place], [address] Sodium [Moles/Vol] 137 mmol/L Normal 133-145 [facility] Comment on above: Performed By: #### L 100.0100, L501.9520, L500.4050 ####[facility] [address] [place], [address] T PROT 5.1 g/dL Low 5.9-8.4 [facility] Comment on above: Performed By: #### L 100.0100, L501.9520, L500.4050 ####[facility] [address] [place], [address] Urea nitrogen [Mass/Vol] 14 mg/dL Normal 4-19 [facility] Comment on above: Performed By: #### L 100.0100, L501.9520, L500.4050 ####[facility] [address] [place], [address] Consultation - Surgicalon Consultation - Surgical Normal [facility] Thyroid Stim Hormone (TSH)on 03-12-2025 TSH 0.576 uIU/mL Normal 0.300-4.200 [facility] Comment on above: Performed By: #### L 100.0100, L501.9520, L500.4050 ####[facility] [address] [place], [address] Abdomen/Pelvis W IV Cont ONL Yon 03-11-2025 Abdomen/Pelvis W IV Cont ONLY Normal [facility] CBC W/Diff, Automatedon SMEAR COMMENT SCANNED Normal [facility] Comment on above: Performed By: #### L 500.4050, M200.1000, L503.6005, L300.3900, L300.4310, L100.0100 ####[facility] [address] [place], [address] Chest 1 View (Portable)on Chest 1 View (Portable) Normal [facility] Comprehensive Metabolic Prof ilon 03-11-2025 Albumin [Mass/Vol] 4.2 g/dL Normal 3.4-4.8 [facility] Comment on above: Performed By: #### L 500.4050, M200.1000, L503.6005, L300.3900, L300.4310, L100.0100 ####[facility] [address] [place], [address] Albumin/Globulin [Mass ratio] 1.6 {ratio} Normal 0.9-2.4 [facility] Comment on above: Performed By: #### L 500.4050, M200.1000, L503.6005, L300.3900, L300.4310, L100.0100 ####[facility] [address] [place], [address] ALK PHOS 40 U/L Normal 35-104 [facility] Comment on above: Performed By: #### L 500.4050, M200.1000, L503.6005, L300.3900, L300.4310, L100.0100 ####[facility] [address] [place], [address] ALT [Catalytic activity/Vol] 15 U/L Normal <=34 [facility] Comment on above: Performed By: #### L 500.4050, M200.1000, L503.6005, L300.3900, L300.4310, L100.0100 ####[facility] [address] [place], [address] AST [Catalytic activity/Vol] 27 U/L Normal <=31 [facility] Comment on above: Performed By: #### L 500.4050, M200.1000, L503.6005, L300.3900, L300.4310, L100.0100 ####[facility] [address] [place], [address] Bilirubin [Mass/Vol] 0.44 mg/dL Normal 0.00-1.30 [facility] Comment on above: Performed By: #### L 500.4050, M200.1000, L503.6005, L300.3900, L300.4310, L100.0100 ####[facility] [address] [place], [address] BUN/CRE 19.0 RATIO Normal 10-20 [facility] Comment on above: Performed By: #### L 500.4050, M200.1000, L503.6005, L300.3900, L300.4310, L100.0100 ####[facility] [address] [place], [address] Calcium [Mass/Vol] 9.0 mg/dL Normal 7.6-11.0 [facility] Comment on above: Performed By: #### L 500.4050, M200.1000, L503.6005, L300.3900, L300.4310, L100.0100 ####[facility] [address] [place], [address] Chloride [Moles/Vol] 94 mmol/L Low 98-108 [facility] Comment on above: Performed By: #### L 500.4050, M200.1000, L503.6005, L300.3900, L300.4310, L100.0100 ####[facility] [address] [place], [address] CO2 [Moles/Vol] 25.1 mmol/L Normal 21.0-32.0 [facility] Comment on above: Performed By: #### L 500.4050, M200.1000, L503.6005, L300.3900, L300.4310, L100.0100 ####[facility] [address] [place], [address] Creatinine [Mass/Vol] 0.98 mg/dL Normal 0.70-1.20 [facility] Comment on above: Performed By: #### L 500.4050, M200.1000, L503.6005, L300.3900, L300.4310, L100.0100 ####[facility] [address] [place], [address] ECRCL 32.93 ml/min Low 50-250 [facility] Comment on above: Performed By: #### L 500.4050, M200.1000, L503.6005, L300.3900, L300.4310, L100.0100 ####[facility] [address] [place], [address] GAP 14 Normal 5-15 [facility] Comment on above: Performed By: #### L 500.4050, M200.1000, L503.6005, L300.3900, L300.4310, L100.0100 ####[facility] [address] [place], [address] GFR/1.73 sq M.predicted among non-blacks MDRD (S/P/Bld) [Vol rate/Area] 61 mL/min/{1.73_m2} Normal >60 [facility] Comment on above: Result Comment: mL/m in/1.73m2 CKD-EPI Creatinine Equation (2020) Performed By: #### L 500.4050, M200.1000, L503.6005, L300.3900, L300.4310, L100.0100 ####[facility] [address] [place], [address] Globulin (S) [Mass/Vol] 2.5 g/dL Normal 2.2-4.2 [facility] Comment on above: Performed By: #### L 500.4050, M200.1000, L503.6005, L300.3900, L300.4310, L100.0100 ####[facility] [address] [place], [address] Glucose [Mass/Vol] 82 mg/dL Normal 70-99 [facility] Comment on above: Performed By: #### L 500.4050, M200.1000, L503.6005, L300.3900, L300.4310, L100.0100 ####[facility] [address] [place], [address] Potassium [Moles/Vol] 2.8 mmol/L Low 3.3-5.1 [facility] Comment on above: Performed By: #### L 500.4050, M200.1000, L503.6005, L300.3900, L300.4310, L100.0100 ####[facility] [address] [place], [address] Sodium [Moles/Vol] 133 mmol/L Normal 133-145 [facility] Comment on above: Performed By: #### L 500.4050, M200.1000, L503.6005, L300.3900, L300.4310, L100.0100 ####[facility] [address] [place], [address] T PROT 6.7 g/dL Normal 5.9-8.4 [facility] Comment on above: Performed By: #### L 500.4050, M200.1000, L503.6005, L300.3900, L300.4310, L100.0100 ####[facility] [address] [place], [address] Urea nitrogen [Mass/Vol] 19 mg/dL Normal 4-19 [facility] Comment on above: Performed By: #### L 500.4050, M200.1000, L503.6005, L300.3900, L300.4310, L100.0100 ####[facility] [address] [place], [address] Emergency Department Summary on 03-11-2025 Emergency Department Summary Normal [facility] H AND P Exam - Hospitaliston 03-11-2025 H&P Exam - Hospitalist Normal [facility] Lactic Acidon 03-11-2025 Lactate [Moles/Vol] 1.0 mmol/L Normal 0.0-2.0 [facility] Comment on above: Performed By: #### L 503.6005 ####[facility] [address] [place], [place], [address] Lactate [Moles/Vol] 3.4 mmol/L Invalid Interpretation Code 0.0-2.0 [facility] Comment on above: Order Comment: Y Result Comment: Crit ical Result(s) Called at: 1420 03/11/2025 by: TIM??Results read back by same. Performed By: #### L 500.4050, M200.1000, L503.6005, L300.3900, L300.4310, L100.0100 ####[facility] [address] [place], [place], [address] Partial Thromboplast Timeon 03-11-2025 aPTT Coag (Bld) [Time] 31.4 s Normal 24.1-36.2 [facility] Comment on above: Performed By: #### L 500.4050, M200.1000, L503.6005, L300.3900, L300.4310, L100.0100 ####[facility] [address] [place], [address] Prothrombin Time w/INRon INR Coag (PPP) [Relative time] 1.1 {INR} Normal [facility] Comment on above: Performed By: #### L 500.4050, M200.1000, L503.6005, L300.3900, L300.4310, L100.0100 ####[facility] [address] [place], [address] PT Coag (PPP) [Time] 14.3 s Normal 11.7-14.9 [facility] Comment on above: Performed By: #### L 500.4050, M200.1000, L503.6005, L300.3900, L300.4310, L100.0100 ####[facility] [address] [place], [address] Urinalysis, Completeon 03-11 BACTERIA 1+ /hpf Normal None Seen [facility] Comment on above: Order Comment: CLEAN CATCH Performed By: #### L 400.0001, M100.2200 ####[facility] [facility] [address] [place], [address] RBC 0-5 SEEN Normal 0-5 [facility] Comment on above: Order Comment: CLEAN CATCH Performed By: #### L 400.0001, M100.2200 ####[facility] [address] [place], [address] WBC 5-10 SEEN Normal 0-5 [facility] Comment on above: Order Comment: CLEAN CATCH Performed By: #### L 400.0001, M100.2200 ####[facility] [address] [place], [address] EPI,SQUAMOUS 0 SEEN Normal 5-10 [facility] Comment on above: Order Comment: CLEAN CATCH Performed By: #### L 400.0001, M100.2200 ####[facility] [address] [place], [address] Mucus Ql (Urine sed) 0 SEEN Normal [facility] Comment on above: Order Comment: CLEAN CATCH Performed By: #### L 400.0001, M100.2200 ####[facility] [address] [place], [address] Fluoro Guided Needle Placeme nton 01-16-2025 Fluoro Guided Needle Placement Normal [facility] Operative Reporton Operative Report Normal [facility] Absolute lymphocyte countOrd ered By: Ye Rioske on 12-27-2024 Lymphocytes Auto (Unsp spec) [#/Vol] 0.57 10*3/uL Low 0.83-4.51 [facility] Absolute neutrophil countOrd ered By: Ye Rioske on 12-27-2024 Neutrophils (Bld) [#/Vol] 7.3 10*3/uL 2.0-7.7 [facility] Anion gap in Serum or Plasma Ordered By: Ye Yasmin on 12-27-2024 Anion gap [Moles/Vol] 12 mmol/L 5-15 [facility] Automated lymphocyte count a s percentage of total leukocytesOrdered By: Ye Yasmin on 12-27-2024 Lymphocytes/100 WBC Auto (Unsp spec) 6.8 % Low 19-41 [facility] BUN/creatinine ratioOrdered By: Ye Yasmin on 12-27-2024 Urea nitrogen/Creatinine [Mass ratio] 21.1 mg/mg High 10-20 [facility] Basophil percentageOrdered B y: Ye Rioske on 12-27-2024 Basophils/100 WBC (Bld) 0.2 % 0-1 [facility] Bilirubin, totalOrdered By: Ye Yasmin on 12-27-2024 Bilirubin [Mass/Vol] 0.25 mg/dL 0.00-1.30 [facility] CBC W/Diff, Automatedon 12-03 Absolute Lymph 0.57 X10 3/uL Low 0.83-4.51 [facility] Comment on above: Performed By: #### L 100.0100 ####[facility] [address] [place], [address] Absolute Neut 7.3 X10 3/uL Normal 2.0-7.7 [facility] Comment on above: Performed By: #### L 100.0100 ####[facility] [address] [place], [address] Basophils/100 WBC (Bld) 0.2 % Normal 0-1 [facility] Comment on above: Performed By: #### L 100.0100 ####[facility] [address] [place], [address] Eosinophils/100 WBC (Bld) 1.0 % Normal 0-5 [facility] Comment on above: Performed By: #### L 100.0100 ####[facility] [address] [place], [address] Erythrocyte distribution width (RBC) [Ratio] 13.1 % Normal 11.6-14.6 [facility] Comment on above: Performed By: #### L 100.0100 ####[facility] [address] [place], [address] Hematocrit (Bld) [Volume fraction] 38.0 % Normal 37-47 [facility] Comment on above: Performed By: #### L 100.0100 ####[facility] [address] [place], [address] Hemoglobin (Bld) [Mass/Vol] 12.7 g/dL Normal 12.0-15.0 [facility] Comment on above: Performed By: #### L 100.0100 ####[facility] [address] [place], [address] IG% 0.400 Normal 0.0-0.9 [facility] Comment on above: Result Comment: IG% - Immature Granulocytes (promyelocytes, myelocytes andmetamyelocytes) > 1% indicates that a LEFT SHIFT is Present. Performed By: #### L 100.0100 ####[facility] [address] [place], [address] Lymphocytes/100 WBC (Bld) 6.8 % Low 19-41 [facility] Comment on above: Performed By: #### L 100.0100 ####[facility] [address] [place], [address] MCH (RBC) [Entitic mass] 32.8 pg High 27.0-32.0 [facility] Comment on above: Performed By: #### L 100.0100 ####[facility] [address] [place], [address] MCHC (RBC) [Mass/Vol] 33.4 g/dL Normal 32-36 [facility] Comment on above: Performed By: #### L 100.0100 ####[facility] [address] [place], [address] MCV (RBC) [Entitic vol] 98.2 fL Normal 81-99 [facility] Comment on above: Performed By: #### L 100.0100 ####[facility] [address] [place], [address] Monocytes/100 WBC (Bld) 4.9 % Normal 0-10 [facility] Comment on above: Performed By: #### L 100.0100 ####[facility] [address] [place], [address] Neutrophils/100 WBC (Bld) 86.7 % High 47-70 [facility] Comment on above: Performed By: #### L 100.0100 ####[facility] [address] [place], [address] Nucleated RBC (Bld) [#/Vol] 0 10*3/uL Normal 0-5 [facility] Comment on above: Performed By: #### L 100.0100 ####[facility] [address] [place], [address] Platelet mean volume (Bld) [Entitic vol] 10.7 fL Normal 6.2-12.0 [facility] Comment on above: Performed By: #### L 100.0100 ####[facility] [address] [place], [address] Platelets (Bld) [#/Vol] 184 10*3/uL Normal 150-450 [facility] Comment on above: Performed By: #### L 100.0100 ####[facility] [address] [place], [address] RBC (Bld) [#/Vol] 3.87 10*6/uL Low 4.2-5.4 [facility] Comment on above: Performed By: #### L 100.0100 ####[facility] [address] [place], [address] RDW SD 46.8 fl High 35.1-43.9 [facility] Comment on above: Performed By: #### L 100.0100 ####[facility] [address] [place], [address] WBC (Bld) [#/Vol] 8.4 10*3/uL Normal 4.4-11.0 [facility] Comment on above: Performed By: #### L 100.0100 ####[facility] [address] [place], [address] CBC-Complete Blood Cnt No Di ffon 12-27-2024 HCT Normal 37-47 [facility] Comment on above: Order Comment: Order Date: 12/27/24Order Info: [id number] - CBC Result Comment: LINK G Performed By: #### L 500.4050, L100.0500, L501.9985, L501.9520, L503.6550, L503.6030, L500.4100 ####[facility] [address] [place], [address] HGB Normal 12.0-15.0 [facility] Comment on above: Order Comment: Order Date: 12/27/24Order Info: [id number] - CBC Result Comment: LINK G Performed By: #### L 500.4050, L100.0500, L501.9985, L501.9520, L503.6550, L503.6030, L500.4100 ####[facility] [address] [place], [address] MCH Normal 27.0-32.0 [facility] Comment on above: Order Comment: Order Date: 12/27/24Order Info: [id number] - CBC Result Comment: WRON G Performed By: #### L 500.4050, L100.0500, L501.9985, L501.9520, L503.6550, L503.6030, L500.4100 ####[facility] [address] [place], [address] MCHC Normal 32-36 [facility] Comment on above: Order Comment: Order Date: 12/27/24Order Info: [id number] - CBC Result Comment: WRON G Performed By: #### L 500.4050, L100.0500, L501.9985, L501.9520, L503.6550, L503.6030, L500.4100 ####[facility] [address] [place], [address] MCV Normal 81-99 [facility] Comment on above: Order Comment: Order Date: 12/27/24Order Info: [id number] - CBC Result Comment: WRON G Performed By: #### L 500.4050, L100.0500, L501.9985, L501.9520, L503.6550, L503.6030, L500.4100 ####[facility] [address] [place], [address] PLT Normal 150-450 [facility] Comment on above: Order Comment: Order Date: 12/27/24Order Info: [id number] - CBC Result Comment: WRON G Performed By: #### L 500.4050, L100.0500, L501.9985, L501.9520, L503.6550, L503.6030, L500.4100 ####[facility] [address] [place], [address] RBC Normal 4.2-5.4 [facility] Comment on above: Order Comment: Order Date: 12/27/24Order Info: [id number] - CBC Result Comment: WRON G Performed By: #### L 500.4050, L100.0500, L501.9985, L501.9520, L503.6550, L503.6030, L500.4100 ####[facility] [address] [place], [address] RDW CV Normal 11.6-14.6 [facility] Comment on above: Order Comment: Order Date: 12/27/24Order Info: [id number] - CBC Result Comment: WRON G Performed By: #### L 500.4050, L100.0500, L501.9985, L501.9520, L503.6550, L503.6030, L500.4100 ####[facility] [address] [place], [address] RDW SD Normal 35.1-43.9 [facility] Comment on above: Order Comment: Order Date: 12/27/24Order Info: [id number] - CBC Result Comment: WRON G Performed By: #### L 500.4050, L100.0500, L501.9985, L501.9520, L503.6550, L503.6030, L500.4100 ####[facility] [address] [place], [address] WBC Normal 4.4-11.0 [facility] Comment on above: Order Comment: Order Date: 12/27/24Order Info: [id number] - CBC Result Comment: WRON G Performed By: #### L 500.4050, L100.0500, L501.9985, L501.9520, L503.6550, L503.6030, L500.4100 ####[facility] [address] [place], [place], [address] Calculated very low density lipoprotein (VLDL) cholesterol measurementOrdered By: Ye Hoffman on 12-27-2024 Calculated very low density lipoprotein (VLDL) cholesterol measurement 10 mg/dL 5-40 [facility] Carbon dioxide, total [Moles /volume] in Central venous bloodOrdered By: Ye Hoffman on 12-27-2024 CO2 [Moles/Vol] 26.0 mmol/L 21.0-32.0 [facility] Chloride assayOrdered By: Juliocesar Hoffman on 12-27-2024 Chloride [Moles/Vol] 101 mmol/L 98-108 [facility] Comprehensive Metabolic Prof ilon 12-27-2024 Albumin [Mass/Vol] 4.2 g/dL Normal 3.4-4.8 [facility] Comment on above: Order Comment: Order Date: 12/27/24Order Info: [id number] - CMPOrder Info: [id number] - LIPIDOrder Info: [id number] - TSHOrder Info: [id number] - IBCOrder Info: [id number] - MEG Performed By: #### L 500.4050, L100.0500, L501.9985, L501.9520, L503.6550, L503.6030, L500.4100 ####[facility] [address] [place], [place], [address] Albumin/Globulin [Mass ratio] 1.6 {ratio} Normal 0.9-2.4 [facility] Comment on above: Order Comment: Order Date: 12/27/24Order Info: [id number] - CMPOrder Info: [id number] - LIPIDOrder Info: 6-3 - TSHOrder Info: [id number] - IBCOrder Info: [id number] - MEG Performed By: #### L 500.4050, L100.0500, L501.9985, L501.9520, L503.6550, L503.6030, L500.4100 ####[facility] [address] [place], [address] ALK PHOS 48 U/L Normal 35-104 [facility] Comment on above: Order Comment: Order Date: 12/27/24Order Info: 86-1 - CMPOrder Info: [id number] - LIPIDOrder Info: 3 - TSHOrder Info: [id number] - IBCOrder Info: [id number] - MEG Performed By: #### L 500.4050, L100.0500, L501.9985, L501.9520, L503.6550, L503.6030, L500.4100 ####[facility] [address] [place], [address] ALT [Catalytic activity/Vol] 12 U/L Normal <=34 [facility] Comment on above: Order Comment: Order Date: 12/27/24Order Info: [id number] - CMPOrder Info: - LIPIDOrder Info: [id number] - TSHOrder Info: [id number] - IBCOrder Info: 4 - MEG Performed By: #### L 500.4050, L100.0500, L501.9985, L501.9520, L503.6550, L503.6030, L500.4100 ####[facility] [address] [place], [address] AST [Catalytic activity/Vol] 21 U/L Normal <=31 [facility] Comment on above: Order Comment: Order Date: 12/27/24Order Info: [id number] - CMPOrder Info: [id number] - LIPIDOrder Info: 3 - TSHOrder Info: [id number] - IBCOrder Info: 4 - MEG Performed By: #### L 500.4050, L100.0500, L501.9985, L501.9520, L503.6550, L503.6030, L500.4100 ####[facility] [address] [place], [address] Bilirubin [Mass/Vol] 0.25 mg/dL Normal 0.00-1.30 [facility] Comment on above: Order Comment: Order Date: 12/27/24Order Info: 07- - CMPOrder Info: [id number] - LIPIDOrder Info: 3 - TSHOrder Info: [id number] - IBCOrder Info: [id number] - MEG Performed By: #### L 500.4050, L100.0500, L501.9985, L501.9520, L503.6550, L503.6030, L500.4100 ####[facility] [address] [place], [address] BUN/CRE 21.1 RATIO High 10-20 [facility] Comment on above: Order Comment: Order Date: 12/27/24Order Info: 785- - CMPOrder Info: [id number] - LIPIDOrder Info: 3 - TSHOrder Info: [id number] - IBCOrder Info: [id number] - MEG Performed By: #### L 500.4050, L100.0500, L501.9985, L501.9520, L503.6550, L503.6030, L500.4100 ####[facility] [address] [place], [address] Calcium [Mass/Vol] 9.2 mg/dL Normal 7.6-11.0 [facility] Comment on above: Order Comment: Order Date: 12/27/24Order Info: 86- - CMPOrder Info: [id number] - LIPIDOrder Info: [id number] - TSHOrder Info: [id number] - IBCOrder Info: [id number] - MEG Performed By: #### L 500.4050, L100.0500, L501.9985, L501.9520, L503.6550, L503.6030, L500.4100 ####[facility] [address] [place], [address] Chloride [Moles/Vol] 101 mmol/L Normal 98-108 [facility] Comment on above: Order Comment: Order Date: 12/27/24Order Info: 86-1 - CMPOrder Info: [id number] - LIPIDOrder Info: [id number] - TSHOrder Info: [id number] - IBCOrder Info: 4 - MEG Performed By: #### L 500.4050, L100.0500, L501.9985, L501.9520, L503.6550, L503.6030, L500.4100 ####[facility] [address] [place], [address] CO2 [Moles/Vol] 26.0 mmol/L Normal 21.0-32.0 [facility] Comment on above: Order Comment: Order Date: 12/27/24Order Info: 785- - CMPOrder Info: [id number] - LIPIDOrder Info: 3 - TSHOrder Info: [id number] - IBCOrder Info: [id number] - EMG Performed By: #### L 500.4050, L100.0500, L501.9985, L501.9520, L503.6550, L503.6030, L500.4100 ####[facility] [address] [place], [place], [phone] Creatinine [Mass/Vol] 0.42 mg/dL Low 0.70-1.20 [facility] Comment on above: Order Comment: Order Date: 12/27/24Order Info: 785- - CMPOrder Info: [id number] - LIPIDOrder Info: 3 - TSHOrder Info: [id number] - IBCOrder Info: [id number] - MEG Performed By: #### L 500.4050, L100.0500, L501.9985, L501.9520, L503.6550, L503.6030, L500.4100 ####[facility] [address] [place], [address] GAP 12 Normal 5-15 [facility] Comment on above: Order Comment: Order Date: 12/27/24Order Info: 785- - CMPOrder Info: [id number] - LIPIDOrder Info: [id number] - TSHOrder Info: [id number] - IBCOrder Info: [id number] - MEG Performed By: #### L 500.4050, L100.0500, L501.9985, L501.9520, L503.6550, L503.6030, L500.4100 ####[facility] [address] [place], [address] GFR/1.73 sq M.predicted among non-blacks MDRD (S/P/Bld) [Vol rate/Area] 103 mL/min/{1.73_m2} Normal >60 [facility] Comment on above: Order Comment: Order Date: 12/27/24Order Info: [id number] - CMPOrder Info: - LIPIDOrder Info: [id number] - TSHOrder Info: [id number] - IBCOrder Info: [id number] - MEG Result Comment: mL/m in/1.73m2 CKD-EPI Creatinine Equation (2020) Performed By: #### L 500.4050, L100.0500, L501.9985, L501.9520, L503.6550, L503.6030, L500.4100 ####[facility] [address] [place], [address] Globulin (S) [Mass/Vol] 2.6 g/dL Normal 2.2-4.2 [facility] Comment on above: Order Comment: Order Date: 12/27/24Order Info: [id number] - CMPOrder Info: [id number] - LIPIDOrder Info: [id number] - TSHOrder Info: [id number] - IBCOrder Info: [id number] - MEG Performed By: #### L 500.4050, L100.0500, L501.9985, L501.9520, L503.6550, L503.6030, L500.4100 ####[facility] [address] [place], [address] Glucose [Mass/Vol] 85 mg/dL Normal 70-99 [facility] Comment on above: Order Comment: Order Date: 12/27/24Order Info: [id number] - CMPOrder Info: [id number] - LIPIDOrder Info: 3 - TSHOrder Info: [id number] - IBCOrder Info: 4 - MEG Performed By: #### L 500.4050, L100.0500, L501.9985, L501.9520, L503.6550, L503.6030, L500.4100 ####[facility] [address] [place], [address] Potassium [Moles/Vol] 3.7 mmol/L Normal 3.3-5.1 [facility] Comment on above: Order Comment: Order Date: 12/27/24Order Info: [id number] - CMPOrder Info: [id number] - LIPIDOrder Info: 3 - TSHOrder Info: [id number] - IBCOrder Info: [id number] - MEG Performed By: #### L 500.4050, L100.0500, L501.9985, L501.9520, L503.6550, L503.6030, L500.4100 ####[facility] [address] [place], [address] Sodium [Moles/Vol] 139 mmol/L Normal 133-145 [facility] Comment on above: Order Comment: Order Date: 12/27/24Order Info: 07-1 - CMPOrder Info: [id number] - LIPIDOrder Info: 3 - TSHOrder Info: [id number] - IBCOrder Info: 4 - MEG Performed By: #### L 500.4050, L100.0500, L501.9985, L501.9520, L503.6550, L503.6030, L500.4100 ####[facility] [address] [place], [address] T PROT 6.8 g/dL Normal 5.9-8.4 [facility] Comment on above: Order Comment: Order Date: 12/27/24Order Info: [id number]- - CMPOrder Info: [id number] - LIPIDOrder Info: [id number] - TSHOrder Info: [id number] - IBCOrder Info: [id number] - MEG Performed By: #### L 500.4050, L100.0500, L501.9985, L501.9520, L503.6550, L503.6030, L500.4100 ####[facility] [address] [place], [place], [address] Urea nitrogen [Mass/Vol] 9 mg/dL Normal 4-19 [facility] Comment on above: Order Comment: Order Date: 12/27/24Order Info: [id number] - CMPOrder Info: - LIPIDOrder Info: [id number] - TSHOrder Info: [id number] - IBCOrder Info: [id number] - MEG Performed By: #### L 500.4050, L100.0500, L501.9985, L501.9520, L503.6550, L503.6030, L500.4100 ####[facility] [address] [place], [place], [address] Eosinophil percentageOrdered By: Ye Hoffman on 12-27-2024 Eosinophils/100 WBC (Bld) 1.0 % 0-5 [facility] Erythrocyte distribution wid th ratioOrdered By: Ye Hoffman on 12-27-2024 Erythrocyte distribution width (RBC) [Ratio] 13.1 % 11.6-14.6 [facility] Erythrocyte distribution wid th standard deviationOrdered By: Ye Hoffman on 12-27-2024 Erythrocyte distribution width (RBC) [Ratio] 46.8 fl High 35.1-43.9 [facility] Ferritinon 12-27-2024 Ferritin [Mass/Vol] 30 ng/mL Normal 22-378 [facility] Comment on above: Order Comment: Order Date: 12/27/24Order Info: [id number]- - CMPOrder Info: [id number] - LIPIDOrder Info: [id number] - TSHOrder Info: [id number] - IBCOrder Info: [id number] - MEG Performed By: #### L 500.4050, L100.0500, L501.9985, L501.9520, L503.6550, L503.6030, L500.4100 ####[facility] [address] [place], [place], [address] Glomerular filtration rate ( GFR) estimation/1.73 sq m using serum, plasma, or whole bOrdered By: Ye oHffman on 12-27-2024 GFR/1.73 sq M.predicted among non-blacks MDRD (S/P/Bld) [Vol rate/Area] 103 mL/min/{1.73_m2} >60 [facility] Comment on above: mL/min/1.73m2 CKD-EP I Creatinine Equation (2020) Hematocrit Auto (Bld) [Volum e fraction]Ordered By: Ye Hoffman on 12-27-2024 Hematocrit (Bld) [Volume fraction] 38.0 % 37-47 [facility] Hemoglobin A1con 12-27-2024 HbA1c (Bld) [Mass fraction] 4.7 % Normal <=5.6 [facility] Comment on above: Order Comment: Order Date: 12/27/24Order Info: [id number] - A1C Result Comment: Norm al < 5.7 % Prediabetic 5.7 - 6.4 % Diabetic >or= 6.5 % Please note range changes. Performed By: #### L 500.4050, L100.0500, L501.9985, L501.9520, L503.6550, L503.6030, L500.4100 ####[facility] [address] [place], [place], [address] Hemoglobin A1c percentageOrd ered By: Ye Hoffman on 12-27-2024 HbA1c (Bld) [Mass fraction] 4.7 % <5.7 [facility] Comment on above: Normal < 5.7 % Predi abetic 5.7 - 6.4 % Diabetic >or= 6.5 % Please note range changes. Hemoglobin measurementOrdere d By: Ye Hoffman on 12-27-2024 Hemoglobin (Bld) [Mass/Vol] 12.7 g/dL 12.0-15.0 [facility] Immature granulocytes/100 WB C Auto (Bld)Ordered By: Ye Rioske on 12-27-2024 Immature granulocytes/100 WBC (Bld) 0.400 % 0.0-0.9 [facility] Comment on above: IG% - Immature Granu locytes (promyelocytes, myelocytes and metamyelocytes) > 1% indicates that a LEFT SHIFT is Present. Iron measurement (mass/mass) Ordered By: Ye Hoffman on 12-27-2024 Iron (Unsp spec) [Mass/Mass] 68 ug/dL 50-170 [facility] Iron+Iron Binding Capacityon 12-27-2024 Iron [Mass/Vol] 68 ug/dL Normal 50-170 [facility] Comment on above: Order Comment: Order Date: 12/27/24Order Info: [id number] - CMPOrder Info: [id number] - LIPIDOrder Info: [id number] - TSHOrder Info: [id number] - IBCOrder Info: [id number] - MEG Performed By: #### L 500.4050, L100.0500, L501.9985, L501.9520, L503.6550, L503.6030, L500.4100 ####[facility] [address] [place], [address] IRON SATURATION 28.0 Normal 13-59 [facility] Comment on above: Order Comment: Order Date: 12/27/24Order Info: [id number] - CMPOrder Info: [id number] - LIPIDOrder Info: [id number] - TSHOrder Info: [id number] - IBCOrder Info: [id number] - MEG Performed By: #### L 500.4050, L100.0500, L501.9985, L501.9520, L503.6550, L503.6030, L500.4100 ####[facility] [address] [place], [address] TIBC 245 ug/dL Low 250-450 [facility] Comment on above: Order Comment: Order Date: 12/27/24Order Info: [id number]- - CMPOrder Info: [id number] - LIPIDOrder Info: [id number] - TSHOrder Info: [id number] - IBCOrder Info: [id number] - MEG Performed By: #### L 500.4050, L100.0500, L501.9985, L501.9520, L503.6550, L503.6030, L500.4100 ####[facility] [address] [place], [place], [address] UIBC 177 ug/dL Low 228-428 [facility] Comment on above: Order Comment: Order Date: 12/27/24Order Info: [id number] - CMPOrder Info: - LIPIDOrder Info: [id number] - TSHOrder Info: [id number] - IBCOrder Info: [id number] - MEG Performed By: #### L 500.4050, L100.0500, L501.9985, L501.9520, L503.6550, L503.6030, L500.4100 ####[facility] [address] [place], [place], [address] LDL calc ser/plasOrdered By: Ye Hoffman on 12-27-2024 Cholesterol in LDL [Mass/Vol] 77 mg/dL [facility] Comment on above: Ixvdzjwwft=746-558 m g/dL & Higher Sjib=397 mg/dL or greaterFriedwald Equation for LDL-C Laboratory - Chemistry and C hemistry - challengeOrdered By: Ye Hoffman on 12-27-2024 AST [Catalytic activity/Vol] 21 U/L <32 [facility] Lipid Profileon 12-27-2024 CHOL:HDL 2.05 Normal [facility] Comment on above: Order Comment: Order Date: 12/27/24Order Info: [id number] - CMPOrder Info: - LIPIDOrder Info: [id number] - TSHOrder Info: [id number] - IBCOrder Info: [id number] - MEG Performed By: #### L 500.4050, L100.0500, L501.9985, L501.9520, L503.6550, L503.6030, L500.4100 ####[facility] [address] [place], [place], [id number] Cholesterol [Mass/Vol] 170 mg/dL Normal <=200 [facility] Comment on above: Order Comment: Order Date: 12/27/24Order Info: [id number] - CMPOrder Info: [id number] - LIPIDOrder Info: [id number] - TSHOrder Info: [id number] - IBCOrder Info: [id number] - MEG Result Comment: Chol esterol level, Desirable <200 mg/dLBorderline high cholesterol 200-239 mg/dLHigh cholesterol >=240 mg/dLRecommendations of the NCEP Adult Treatment Panel for thefollowing risk-cutoff thresholds for the [place] [facility]. Performed By: #### L 500.4050, L100.0500, L501.9985, L501.9520, L503.6550, L503.6030, L500.4100 ####[facility] [address] [place], [place], [address] Cholesterol in HDL [Mass/Vol] 83 mg/dL Normal [facility] Comment on above: Order Comment: Order Date: 12/27/24Order Info: [id number] - CMPOrder Info: [id number] - LIPIDOrder Info: 3 - TSHOrder Info: [id number] - IBCOrder Info: [id number] - MEG Result Comment: [facility] [facility] Cholesterol Education Program (NCEP) guidelines:<40 mg/dL: Low HDL-cholesterol (major risk factor for CHD)>= 60 mg/dL: High HDL-cholesterol (negative risk factor forCHD)HDL-cholesterol is affected by a number of factors, e.g.smoking, exercise, hormones, sex and age. Performed By: #### L 500.4050, L100.0500, L501.9985, L501.9520, L503.6550, L503.6030, L500.4100 ####[facility] [address] [place], [place], [address](334) Cholesterol in LDL [Mass/Vol] 77 mg/dL Normal [facility] Comment on above: Order Comment: Order Date: 12/27/24Order Info: [id number] - CMPOrder Info: [id number] - LIPIDOrder Info: [id number] - TSHOrder Info: [id number] - IBCOrder Info: [id number] - MEG Result Comment: Bord mgbahy=353-970 mg/dL Higher Ymqf=485 mg/dL or greaterFriedwald Equation for LDL-C Performed By: #### L 500.4050, L100.0500, L501.9985, L501.9520, L503.6550, L503.6030, L500.4100 ####[facility] [address] [place], [address] Cholesterol in VLDL [Mass/Vol] 10 mg/dL Normal 5-40 [facility] Comment on above: Order Comment: Order Date: 12/27/24Order Info: [id number] - CMPOrder Info: [id number] - LIPIDOrder Info: [id number] - TSHOrder Info: [id number] - IBCOrder Info: [id number] - MEG Performed By: #### L 500.4050, L100.0500, L501.9985, L501.9520, L503.6550, L503.6030, L500.4100 ####[facility] [address] [place], [address] Triglyceride [Mass/Vol] 51 mg/dL Normal [facility] Comment on above: Order Comment: Order Date: 12/27/24Order Info: [id number] - CMPOrder Info: [id number] - LIPIDOrder Info: [id number] - TSHOrder Info: [id number] - IBCOrder Info: [id number] - MEG Result Comment: The drugs N-Acetylcysteine and Metamizole may falselydepress this assay.Normal range: <150 mg/dLBorderline High: 150-199 mg/dLHigh: 200-499 mg/dLVery High: >500 mg/dL Performed By: #### L [id number], L100.0500, L501.9985, L501.9520, L503.6550, L503.6030, L500.4100 ####[facility] [address] [place], [address] MCV (mean corpuscular volume ) determinationOrdered By: Ye Hoffman on 12-27-2024 MCV (RBC) [Entitic vol] 98.2 fL 81-99 [facility] Mean corpuscular hemoglobin (MCH) determinationOrdered By: Ye Hoffman on 12-27-2024 MCH (RBC) [Entitic mass] 32.8 pg High 27.0-32.0 [facility] Mean corpuscular hemoglobin concentration (MCHC) determinationOrdered By: Ye Hoffman on 12-27-2024 MCHC (RBC) [Mass/Vol] 33.4 g/dL 32-36 [facility] Mean platelet volume determi nationOrdered By: Ye Hoffman on 12-27-2024 Platelet mean volume (Bld) [Entitic vol] 10.7 fL 6.2-12.0 [facility] Monocyte percentageOrdered B y: Ye Hoffman on 12-27-2024 Monocytes/100 WBC (Bld) 4.9 % 0-10 [facility] Neutrophil percentageOrdered By: Ye Hoffman on 12-27-2024 Neutrophils/100 WBC (Bld) 86.7 % High 47-70 [facility] No Panel InformationOrdered By: Ye Hoffman on 12-27-2024 Unsaturated Iron Binding Capacity 177 ug/dL Low 228-428 [facility] Nucleated red blood cell per centageOrdered By: Ye Hoffman on 12-27-2024 Nucleated RBC/100 WBC (Bld) [Ratio] 0 % 0-5 [facility] Platelet countOrdered By: Juliocesar Hoffman on 12-27-2024 Platelets (Bld) [#/Vol] 184 10*3/uL 150-450 [facility] Potassium measurement (mass/ volume)Ordered By: Ye Hoffman on 12-27-2024 Potassium (Unsp spec) [Mass/Vol] 3.7 mmol/L 3.3-5.1 [facility] RBC Auto (Bld) [#/Vol]Ordere d By: Ye Hoffman on 12-27-2024 RBC (Bld) [#/Vol] 3.87 10*6/uL Low 4.2-5.4 [facility] Screening total cholesterol/ high density lipoprotein (HDL) cholesterol ratioOrdered By: Ye Hoffman on 12-27-2024 Cholesterol.total/Cholest jamie in HDL [Mass ratio] 2.05 {ratio} [facility] Serum creatinine measurement (mass/volume)Ordered By: Ye Hoffman on 12-27-2024 Creatinine [Mass/Vol] 0.42 mg/dL Low 0.70-1.20 [facility] Serum globulin measurementOr dered By: Ye Hoffman on 12-27-2024 Globulin (S) [Mass/Vol] 2.6 g/dL 2.2-4.2 [facility] Serum glucose measurement (m ass/volume)Ordered By: Ye Hoffman on 12-27-2024 Glucose [Mass/Vol] 85 mg/dL 70-99 [facility] Serum or plasma alanine driver otransferase (ALT) measurementOrdered By: Ye Hoffman on 12-27-2024 ALT [Catalytic activity/Vol] 12 U/L <35 [facility] Serum or plasma albumin cedric urement (mass/volume)Ordered By: Ye Hoffman on 12-27-2024 Albumin [Mass/Vol] 4.2 g/dL 3.4-4.8 [facility] Serum or plasma albumin/glob ulin mass ratioOrdered By: Ye Hoffman on 12-27-2024 Albumin/Globulin [Mass ratio] 1.6 {ratio} 0.9-2.4 [facility] Serum or plasma alkaline judy sphatase measurementOrdered By: Ye Hoffman on 12-27-2024 ALP [Catalytic activity/Vol] 48 U/L 35-104 [facility] Serum or plasma calcium cedric urement (mass/volume)Ordered By: Ye Hoffman on 12-27-2024 Calcium [Mass/Vol] 9.2 mg/dL 7.6-11.0 [facility] Serum or plasma cholesterol in HDL measurement (mass/volume)Ordered By: Ye Hoffman on 12-27-2024 Cholesterol in HDL [Mass/Vol] 83 mg/dL >40 [facility] Comment on above: National Cholesterol Education Program (NCEP) guidelines:<40 mg/dL: Low HDL-cholesterol (major risk factor for CHD)>= 60 mg/dL: High HDL-cholesterol (negative risk factor for CHD)HDL-cholesterol is affected by a number of factors, e.g. smoking, exercise, hormones, sex and age. Serum or plasma cholesterol measurement (mass/volume)Ordered By: Ye Hoffman on 12-27-2024 Cholesterol [Mass/Vol] 170 mg/dL <201 [facility] Comment on above: Cholesterol level, D esirable <200 mg/dLBorderline high cholesterol 200-239 mg/dLHigh cholesterol >=240 mg/dLRecommendations of the NCEP Adult Treatment Panel for the following risk-cutoff thresholds for the [place] population. Serum or plasma ferritin pineda surement (mass/volume)Ordered By: Ye Hoffman on 12-27-2024 Ferritin [Mass/Vol] 30 ng/mL 22-378 [facility] Serum or plasma iron saturat ion measurement (mass fraction)Ordered By: Ye Hoffman on 12-27-2024 Iron saturation [Mass fraction] 28.0 % 13-59 [facility] Serum or plasma urea nitroge n measurement (mass/volume)Ordered By: Ye Hoffman on 12-27-2024 Urea nitrogen [Mass/Vol] 9 mg/dL 4-19 [facility] Sodium levelOrdered By: Don Hoffman on 12-27-2024 Sodium [Moles/Vol] 139 mmol/L 133-145 [facility] TSH DL <= 0.005 mIU/L QnOrde red By: Ye Hoffman on 12-27-2024 TSH Qn 2.020 uIU/mL 0.300-4.200 [facility] Thyroid Stim Hormone (TSH)on 12-27-2024 TSH 2.020 uIU/mL Normal 0.300-4.200 [facility] Comment on above: Order Comment: Order Date: 12/27/24Order Info: [id number] - CMPOrder Info: [id number] - LIPIDOrder Info: [id number] - TSHOrder Info: [id number] - IBCOrder Info: [id number] - MEG Performed By: #### L 500.4050, L100.0500, L501.9985, L501.9520, L503.6550, L503.6030, L500.4100 ####[facility] [address] [place], [address] Total proteinOrdered By: Nona Hoffman on 12-27-2024 Protein [Mass/Vol] 6.8 g/dL 5.9-8.4 [facility] Triglycerides measurementOrd ered By: Ye Hoffman on 12-27-2024 Triglyceride [Mass/Vol] 51 mg/dL <199 [facility] Comment on above: The drugs N-Acetylcy steine and Metamizole may falsely depress this assay. Normal range: <150 mg/dLBorderline High: 150-199 mg/dLHigh: 200-499 mg/dLVery High: >500 mg/dL White blood cell (WBC) count Ordered By: Ye Hoffman on 12-27-2024 WBC (Bld) [#/Vol] 8.4 10*3/uL 4.4-11.0 [facility] Absolute lymphocyte countOrd ered By: Sukumar Velazquez on 07-21-2024 Lymphocytes Auto (Unsp spec) [#/Vol] 1.05 10*3/uL 0.83-4.51 [facility] Absolute neutrophil countOrd ered By: Sukumar Velazquez on 07-21-2024 Neutrophils (Bld) [#/Vol] 1.8 10*3/uL Low 2.0-7.7 [facility] Anion gap in Serum or Plasma Ordered By: Sukumar Velazquez on 07-21-2024 Anion gap [Moles/Vol] 9 mmol/L 5-15 [facility] Automated lymphocyte count a s percentage of total leukocytesOrdered By: Sukumar Velazquez on 07-21-2024 Lymphocytes/100 WBC Auto (Unsp spec) 28.5 % 19-41 [facility] BUN/creatinine ratioOrdered By: Sukumar Velazquez on 07-21-2024 Urea nitrogen/Creatinine [Mass ratio] 47.2 mg/mg High 10-20 [facility] Basophil percentageOrdered B y: Sukumar Velazquez on 07-21-2024 Basophils/100 WBC (Bld) 0.5 % 0-1 [facility] Carbon dioxide, total [Moles /volume] in Central venous bloodOrdered By: Sukumar Velazquez on 07-21-2024 CO2 [Moles/Vol] 26.1 mmol/L 21.0-32.0 [facility] Chloride assayOrdered By: Maya velez Ehayala on 07-21-2024 Chloride [Moles/Vol] 102 mmol/L 98-108 [facility] Eosinophil percentageOrdered By: Sukumar Velazquez on 07-21-2024 Eosinophils/100 WBC (Bld) 7.6 % High 0-5 [facility] Erythrocyte distribution wid th ratioOrdered By: Sukumar Velazquez on 07-21-2024 Erythrocyte distribution width (RBC) [Ratio] 12.1 % 11.6-14.6 [facility] Erythrocyte distribution wid th standard deviationOrdered By: jeffrygalesburgsoumya Velazquez on 07-21-2024 Erythrocyte distribution width (RBC) [Ratio] 43.4 fl 35.1-43.9 [facility] Glomerular filtration rate ( GFR) estimation/1.73 sq m using serum, plasma, or whole bOrdered By: Sukumar Velazquez on 07-21-2024 GFR/1.73 sq M.predicted among non-blacks MDRD (S/P/Bld) [Vol rate/Area] 99 mL/min/{1.73_m2} >60 [facility] Comment on above: mL/min/1.73m2 CKD-EP I Creatinine Equation (2020) Hematocrit Auto (Bld) [Volum e fraction]Ordered By: Mayajeffrydeedeesoumya Stauffercobyissa on 07-21-2024 Hematocrit (Bld) [Volume fraction] 36.2 % Low 37-47 [facility] Hemoglobin measurementOrdere d By: Mayajeffrybela Ehcobyissa on 07-21-2024 Hemoglobin (Bld) [Mass/Vol] 12.1 g/dL 12.0-15.0 [facility] Immature granulocytes/100 WB C Auto (Bld)Ordered By: Sukumar Velazquez on 07-21-2024 Immature granulocytes/100 WBC (Bld) 0.300 % 0.0-0.9 [facility] Comment on above: IG% - Immature Granu locytes (promyelocytes, myelocytes and metamyelocytes) > 1% indicates that a LEFT SHIFT is Present. MCV (mean corpuscular volume ) determinationOrdered By: Sukumar Velazquez on 07-21-2024 MCV (RBC) [Entitic vol] 96.8 fL 81-99 [facility] Mean corpuscular hemoglobin (MCH) determinationOrdered By: Sukumar Velazquez on 07-21-2024 MCH (RBC) [Entitic mass] 32.4 pg High 27.0-32.0 [facility] Mean corpuscular hemoglobin concentration (MCHC) determinationOrdered By: Sukumar Velazquez on 07-21-2024 MCHC (RBC) [Mass/Vol] 33.4 g/dL 32-36 [facility] Mean platelet volume determi nationOrdered By: Sukumar Velazquez on 07-21-2024 Platelet mean volume (Bld) [Entitic vol] 10.6 fL 6.2-12.0 [facility] Monocyte percentageOrdered B y: Sukumar Velazquez on 07-21-2024 Monocytes/100 WBC (Bld) 13.3 % High 0-10 [facility] Neutrophil percentageOrdered By: Sukumar Velazquez on 07-21-2024 Neutrophils/100 WBC (Bld) 49.8 % 47-70 [facility] Nucleated red blood cell per centageOrdered By: Sukumar Velazquez on 07-21-2024 Nucleated RBC/100 WBC (Bld) [Ratio] 0 % 0-5 [facility] Platelet countOrdered By: Maya Velazquez on 07-21-2024 Platelets (Bld) [#/Vol] 195 10*3/uL 150-450 [facility] Potassium measurement (mass/ volume)Ordered By: Sukumar Velazquez on 03-20-2025 Potassium (Unsp spec) [Mass/Vol] 4.4 mmol/L 3.3-5.1 [facility] RBC Auto (Bld) [#/Vol]Ordere d By: Sukumar Velazquez on 07-21-2024 RBC (Bld) [#/Vol] 3.74 10*6/uL Low 4.2-5.4 [facility] Serum creatinine measurement (mass/volume)Ordered By: Sukumar Velazquez on 07-21-2024 Creatinine [Mass/Vol] 0.50 mg/dL Low 0.70-1.20 [facility] Serum glucose measurement (m ass/volume)Ordered By: Sukumar Velazquez on 07-21-2024 Glucose [Mass/Vol] 96 mg/dL 70-99 [facility] Serum or plasma calcium cedric urement (mass/volume)Ordered By: Sukumar Velazquez on 07-21-2024 Calcium [Mass/Vol] 9.2 mg/dL 7.6-11.0 [facility] Serum or plasma urea nitroge n measurement (mass/volume)Ordered By: Sukumar Velazquez on 07-21-2024 Urea nitrogen [Mass/Vol] 24 mg/dL High 4-19 [facility] Sodium levelOrdered By: Sera bela Caroline on 07-21-2024 Sodium [Moles/Vol] 137 mmol/L 133-145 [facility] White blood cell (WBC) count Ordered By: Sukumar Velazquez on 07-21-2024 WBC (Bld) [#/Vol] 3.7 10*3/uL Low 4.4-11.0 [facility] Wound Ctr History AND Physic bret 07-18-2024 Wound Ctr History & Physical Normal [facility] Absolute lymphocyte countOrd ered By: Sukumar Velazquez on 07-14-2024 Lymphocytes Auto (Unsp spec) [#/Vol] 0.89 10*3/uL 0.83-4.51 [facility] Absolute neutrophil countOrd ered By: Sukumar Velazquez on 07-14-2024 Neutrophils (Bld) [#/Vol] 2.0 10*3/uL 2.0-7.7 [facility] Anion gap in Serum or Plasma Ordered By: Sukumar Velazquez on 07-14-2024 Anion gap [Moles/Vol] 8 mmol/L 5-15 [facility] Automated lymphocyte count a s percentage of total leukocytesOrdered By: Sukumar Velazquez on 07-14-2024 Lymphocytes/100 WBC Auto (Unsp spec) 24.7 % 19-41 [facility] BUN/creatinine ratioOrdered By: Sukumar Velazquez on 07-14-2024 Urea nitrogen/Creatinine [Mass ratio] 65.0 mg/mg High 10-20 [facility] Basophil percentageOrdered B y: Sukumar Velazquez on 07-14-2024 Basophils/100 WBC (Bld) 0.3 % 0-1 [facility] Carbon dioxide, total [Moles /volume] in Central venous bloodOrdered By: Sukumar Velazquez on 07-14-2024 CO2 [Moles/Vol] 27.5 mmol/L 21.0-32.0 [facility] Chloride assayOrdered By: Maya Velazquez on 07-14-2024 Chloride [Moles/Vol] 103 mmol/L 98-108 [facility] Eosinophil percentageOrdered By: Sukumar Velazquez on 07-14-2024 Eosinophils/100 WBC (Bld) 6.4 % High 0-5 [facility] Erythrocyte distribution wid th ratioOrdered By: Sukumar Velazquez on 07-14-2024 Erythrocyte distribution width (RBC) [Ratio] 12.5 % 11.6-14.6 [facility] Erythrocyte distribution wid th standard deviationOrdered By: Sukumar Velazquez on 07-14-2024 Erythrocyte distribution width (RBC) [Ratio] 44.9 fl High 35.1-43.9 [facility] Glomerular filtration rate ( GFR) estimation/1.73 sq m using serum, plasma, or whole bOrdered By: Sukumar Velazquez on 07-14-2024 GFR/1.73 sq M.predicted among non-blacks MDRD (S/P/Bld) [Vol rate/Area] 100 mL/min/{1.73_m2} >60 [facility] Comment on above: mL/min/1.73m2 CKD-EP I Creatinine Equation (2020) Hematocrit Auto (Bld) [Volum e fraction]Ordered By: Sukumar Velazquez on 07-14-2024 Hematocrit (Bld) [Volume fraction] 36.6 % Low 37-47 [facility] Hemoglobin measurementOrdere d By: Sukumar Velazquez on 07-14-2024 Hemoglobin (Bld) [Mass/Vol] 12.0 g/dL 12.0-15.0 [facility] Immature granulocytes/100 WB C Auto (Bld)Ordered By: Sukumar Velazquez on 07-14-2024 Immature granulocytes/100 WBC (Bld) 0.300 % 0.0-0.9 [facility] Comment on above: IG% - Immature Granu locytes (promyelocytes, myelocytes and metamyelocytes) > 1% indicates that a LEFT SHIFT is Present. MCV (mean corpuscular volume ) determinationOrdered By: Sukumar Velazquez on 07-14-2024 MCV (RBC) [Entitic vol] 97.9 fL 81-99 [facility] Mean corpuscular hemoglobin (MCH) determinationOrdered By: Sukumar Velazquez on 07-14-2024 MCH (RBC) [Entitic mass] 32.1 pg High 27.0-32.0 [facility] Mean corpuscular hemoglobin concentration (MCHC) determinationOrdered By: Sukumar Velazquez on 07-14-2024 MCHC (RBC) [Mass/Vol] 32.8 g/dL 32-36 [facility] Mean platelet volume determi nationOrdered By: Sukumar Velazquez on 07-14-2024 Platelet mean volume (Bld) [Entitic vol] 10.6 fL 6.2-12.0 [facility] Monocyte percentageOrdered B y: Sukumar Velazquez on 07-14-2024 Monocytes/100 WBC (Bld) 13.6 % High 0-10 [facility] Neutrophil percentageOrdered By: Sukumar Velazquez on 07-14-2024 Neutrophils/100 WBC (Bld) 54.7 % 47-70 [facility] Nucleated red blood cell per centageOrdered By: Sukumar Velazquez on 07-14-2024 Nucleated RBC/100 WBC (Bld) [Ratio] 0 % 0-5 [facility] Platelet countOrdered By: Maya jeffrybela Velazquez on 07-14-2024 Platelets (Bld) [#/Vol] 207 10*3/uL 150-450 [facility] Potassium measurement (mass/ volume)Ordered By: Sukumar Velazquez on 07-14-2024 Potassium (Unsp spec) [Mass/Vol] 4.3 mmol/L 3.3-5.1 [facility] RBC Auto (Bld) [#/Vol]Ordere d By: Sukumar Velazquez on 07-14-2024 RBC (Bld) [#/Vol] 3.74 10*6/uL Low 4.2-5.4 [facility] Serum creatinine measurement (mass/volume)Ordered By: Sukumar Velazquez on 07-14-2024 Creatinine [Mass/Vol] 0.49 mg/dL Low 0.70-1.20 [facility] Serum glucose measurement (m ass/volume)Ordered By: Sukumar Velazquez on 07-14-2024 Glucose [Mass/Vol] 98 mg/dL 70-99 [facility] Serum or plasma calcium cedric urement (mass/volume)Ordered By: Sukumar Velazquez on 07-14-2024 Calcium [Mass/Vol] 9.3 mg/dL 7.6-11.0 [facility] Serum or plasma urea nitroge n measurement (mass/volume)Ordered By: Sukumar Velazquez on 07-14-2024 Urea nitrogen [Mass/Vol] 32 mg/dL High 4-19 [facility] Sodium levelOrdered By: Sera jiangkalieissa Velazquez on 07-14-2024 Sodium [Moles/Vol] 139 mmol/L 133-145 [facility] White blood cell (WBC) count Ordered By: Sukumar Velazquez on 07-14-2024 WBC (Bld) [#/Vol] 3.6 10*3/uL Low 4.4-11.0 [facility] Dexa Bone Density Studyon Dexa Bone Density Study Normal [facility] SCRN MAMM (CAD)W/JD BILATo n 07-12-2024 SCRN MAMM (CAD)W/JD BILAT Normal [facility] History AND Physic bret 07-11-2024 Wound Ctr History & Physical Normal [facility] History & Physical Normal [facility] Absolute lymphocyte countOrd ered By: Sukumar Velazquez on 07-07-2024 Lymphocytes Auto (Unsp spec) [#/Vol] 0.95 10*3/uL 0.83-4.51 [facility] Absolute neutrophil countOrd ered By: Sukumar Velazquez on 07-07-2024 Neutrophils (Bld) [#/Vol] 3.1 10*3/uL 2.0-7.7 [facility] Anion gap in Serum or Plasma Ordered By: Sukumar Velazquez on 07-07-2024 Anion gap [Moles/Vol] 9 mmol/L 5-15 [facility] Automated lymphocyte count a s percentage of total leukocytesOrdered By: Sukumar Velazquez on 07-07-2024 Lymphocytes/100 WBC Auto (Unsp spec) 19.8 % 19-41 [facility] BUN/creatinine ratioOrdered By: Sukumar Velazquez on 07-07-2024 Urea nitrogen/Creatinine [Mass ratio] 58.3 mg/mg High 10-20 [facility] Basophil percentageOrdered B y: Sukumar Velazquez on 07-07-2024 Basophils/100 WBC (Bld) 0.2 % 0-1 [facility] Carbon dioxide, total [Moles /volume] in Central venous bloodOrdered By: Sukumar Velazquez on 07-07-2024 CO2 [Moles/Vol] 28.2 mmol/L 21.0-32.0 [facility] Chloride assayOrdered By: Maya Velazquez on 07-07-2024 Chloride [Moles/Vol] 102 mmol/L 98-108 [facility] Eosinophil percentageOrdered By: Sukumar Velazquez on 07-07-2024 Eosinophils/100 WBC (Bld) 5.2 % High 0-5 [facility] Erythrocyte distribution wid th ratioOrdered By: Sukumar Velazquez on 07-07-2024 Erythrocyte distribution width (RBC) [Ratio] 12.3 % 11.6-14.6 [facility] Erythrocyte distribution wid th standard deviationOrdered By: Sukumar Velazquez on 07-07-2024 Erythrocyte distribution width (RBC) [Ratio] 44.6 fl High 35.1-43.9 [facility] Glomerular filtration rate ( GFR) estimation/1.73 sq m using serum, plasma, or whole bOrdered By: Sukumar Velazquez on 07-07-2024 GFR/1.73 sq M.predicted among non-blacks MDRD (S/P/Bld) [Vol rate/Area] 99 mL/min/{1.73_m2} >60 [facility] Comment on above: mL/min/1.73m2 CKD-EP I Creatinine Equation (2020) Hematocrit Auto (Bld) [Volum e fraction]Ordered By: Sukumar Velazquez on 07-07-2024 Hematocrit (Bld) [Volume fraction] 36.4 % Low 37-47 [facility] Hemoglobin measurementOrdere d By: Sukumar Velazquez on 07-07-2024 Hemoglobin (Bld) [Mass/Vol] 12.0 g/dL 12.0-15.0 [facility] Immature granulocytes/100 WB C Auto (Bld)Ordered By: Sukumar Velazquez on 07-07-2024 Immature granulocytes/100 WBC (Bld) 0.200 % 0.0-0.9 [facility] Comment on above: IG% - Immature Granu locytes (promyelocytes, myelocytes and metamyelocytes) > 1% indicates that a LEFT SHIFT is Present. MCV (mean corpuscular volume ) determinationOrdered By: Sukumar Velazquez on 07-07-2024 MCV (RBC) [Entitic vol] 98.1 fL 81-99 [facility] Mean corpuscular hemoglobin (MCH) determinationOrdered By: Sukumar Velazquez on 07-07-2024 MCH (RBC) [Entitic mass] 32.3 pg High 27.0-32.0 [facility] Mean corpuscular hemoglobin concentration (MCHC) determinationOrdered By: Sukumar Velazquez on 07-07-2024 MCHC (RBC) [Mass/Vol] 33.0 g/dL 32-36 [facility] Mean platelet volume determi nationOrdered By: Sukumar Velazquez on 07-07-2024 Platelet mean volume (Bld) [Entitic vol] 10.7 fL 6.2-12.0 [facility] Monocyte percentageOrdered B y: Sukumar Velazquez on 07-07-2024 Monocytes/100 WBC (Bld) 10.4 % High 0-10 [facility] Neutrophil percentageOrdered By: Sukumar Velazquez on 07-07-2024 Neutrophils/100 WBC (Bld) 64.2 % 47-70 [facility] Nucleated red blood cell per centageOrdered By: Sukumar Velazquez on 07-07-2024 Nucleated RBC/100 WBC (Bld) [Ratio] 0 % 0-5 [facility] Platelet countOrdered By: Maya Velazquez on 07-07-2024 Platelets (Bld) [#/Vol] 201 10*3/uL 150-450 [facility] Potassium measurement (mass/ volume)Ordered By: Sukumar Velazquez on 07-07-2024 Potassium (Unsp spec) [Mass/Vol] 4.3 mmol/L 3.3-5.1 [facility] RBC Auto (Bld) [#/Vol]Ordere d By: Sukumar Velazquez on 07-07-2024 RBC (Bld) [#/Vol] 3.71 10*6/uL Low 4.2-5.4 [facility] Serum creatinine measurement (mass/volume)Ordered By: Sukumar Velazquez on 07-07-2024 Creatinine [Mass/Vol] 0.51 mg/dL Low 0.70-1.20 [facility] Serum glucose measurement (m ass/volume)Ordered By: Sukumar Velazquez on 07-07-2024 Glucose [Mass/Vol] 98 mg/dL 70-99 [facility] Serum or plasma calcium cedric urement (mass/volume)Ordered By: Sukumar Velazquez on 07-07-2024 Calcium [Mass/Vol] 9.2 mg/dL 7.6-11.0 [facility] Serum or plasma urea nitroge n measurement (mass/volume)Ordered By: Sukumar Ehayala on 07-07-2024 Urea nitrogen [Mass/Vol] 30 mg/dL High 4-19 [facility] Sodium levelOrdered By: Sera Velazquez on 07-07-2024 Sodium [Moles/Vol] 138 mmol/L 133-145 [facility] White blood cell (WBC) count Ordered By: Mayajeffrybela Ehcobyissa on 07-07-2024 WBC (Bld) [#/Vol] 4.8 10*3/uL 4.4-11.0 [facility] Absolute lymphocyte countOrd ered By: Ginoarmando Orlando on 07-05-2024 Lymphocytes Auto (Unsp spec) [#/Vol] 0.85 10*3/uL 0.83-4.51 [facility] Absolute neutrophil countOrd ered By: Ginoarmando Orlando on 07-05-2024 Neutrophils (Bld) [#/Vol] 4.8 10*3/uL 2.0-7.7 [facility] Automated lymphocyte count a s percentage of total leukocytesOrdered By: Fransisca Orlando on 07-05-2024 Lymphocytes/100 WBC Auto (Unsp spec) 13.4 % Low 19-41 [facility] Basophil percentageOrdered B y: Fransisca Orlando on 07-05-2024 Basophils/100 WBC (Bld) 0.3 % 0-1 [facility] CBC W/Diff, Automatedon Absolute Lymph 0.85 X10 3/uL Normal 0.83-4.51 [facility] Comment on above: Performed By: #### L 100.0100, L100.9950, L503.6550, L503.6030 ####[facility] [address] [place], [place], [id number] Absolute Neut 4.8 X10 3/uL Normal 2.0-7.7 [facility] Comment on above: Performed By: #### L 100.0100, L100.9950, L503.6550, L503.6030 ####[facility] [address] [place], [address] Basophils/100 WBC (Bld) 0.3 % Normal 0-1 [facility] Comment on above: Performed By: #### L 100.0100, L100.9950, [id number], L503.6030 ####[facility] [address] [place], [address] Eosinophils/100 WBC (Bld) 3.0 % Normal 0-5 [facility] Comment on above: Performed By: #### L 100.0100, L100.9950, [id number], L503.6030 ####[facility] [address] [place], [place], [address] Erythrocyte distribution width (RBC) [Ratio] 12.2 % Normal 11.6-14.6 [facility] Comment on above: Performed By: #### L 100.0100, L100.9950, L503.6550, L503.6030 ####[facility] [address] [place], [address] Hematocrit (Bld) [Volume fraction] 36.1 % Low 37-47 [facility] Comment on above: Performed By: #### L 100.0100, L100.9950, L503.6550, L503.6030 ####[facility] [address] [place], [address] Hemoglobin (Bld) [Mass/Vol] 12.1 g/dL Normal 12.0-15.0 [facility] Comment on above: Performed By: #### L 100.0100, L100.9950, L503.6550, L503.6030 ####[facility] [address] [place], [address] IG% 0.200 Normal 0.0-0.9 [facility] Comment on above: Result Comment: IG% - Immature Granulocytes (promyelocytes, myelocytes andmetamyelocytes) > 1% indicates that a LEFT SHIFT is Present. Performed By: #### L 100.0100, L100.9950, L503.6550, L503.6030 ####[facility] [address] [place], [address] Lymphocytes/100 WBC (Bld) 13.4 % Low 19-41 [facility] Comment on above: Performed By: #### L 100.0100, L100.9950, [id number], L503.6030 ####[facility] [address] [place], [address] MCH (RBC) [Entitic mass] 32.6 pg High 27.0-32.0 [facility] Comment on above: Performed By: #### L 100.0100, L100.9950, L503.6550, L503.6030 ####[facility] [address] [place], [address] MCHC (RBC) [Mass/Vol] 33.5 g/dL Normal 32-36 [facility] Comment on above: Performed By: #### L 100.0100, L100.9950, [id number], L503.6030 ####[facility] [address] [place], [address] MCV (RBC) [Entitic vol] 97.3 fL Normal 81-99 [facility] Comment on above: Performed By: #### L 100.0100, L100.9950, [id number], L503.6030 ####[facility] [address] [place], [address] Monocytes/100 WBC (Bld) 7.9 % Normal 0-10 [facility] Comment on above: Performed By: #### L 100.0100, L100.9950, [id number], L503.6030 ####[facility] [address] [place], [address] Neutrophils/100 WBC (Bld) 75.2 % High 47-70 [facility] Comment on above: Performed By: #### L 100.0100, L100.9950, [id number], L503.6030 ####[facility] [address] [place], [address] Nucleated RBC (Bld) [#/Vol] 0 10*3/uL Normal 0-5 [facility] Comment on above: Performed By: #### L 100.0100, L100.9950, [id number], L503.6030 ####[facility] [address] [place], [address] Platelet mean volume (Bld) [Entitic vol] 10.1 fL Normal 6.2-12.0 [facility] Comment on above: Performed By: #### L 100.0100, L100.9950, [id number], L503.6030 ####[facility] [address] [place], [address] Platelets (Bld) [#/Vol] 204 10*3/uL Normal 150-450 [facility] Comment on above: Performed By: #### L 100.0100, L100.9950, [id number], L503.6030 ####[facility] [address] [place], [address] RBC (Bld) [#/Vol] 3.71 10*6/uL Low 4.2-5.4 [facility] Comment on above: Performed By: #### L 100.0100, L100.9950, [id number], L503.6030 ####[facility] [address] [place], [address] RDW SD 44.0 fl High 35.1-43.9 [facility] Comment on above: Performed By: #### L 100.0100, L100.9950, [id number], L503.6030 ####[facility] [address] [place], [address] WBC (Bld) [#/Vol] 6.3 10*3/uL Normal 4.4-11.0 [facility] Comment on above: Performed By: #### L 100.0100, L100.9950, [id number], L503.6030 ####[facility] [address] [place], [address] Eosinophil percentageOrdered By: [facility] Orlando on 07-05-2024 Eosinophils/100 WBC (Bld) 3.0 % 0-5 [facility] Erythrocyte distribution wid th ratioOrdered By: [facility] Darion on 07-05-2024 Erythrocyte distribution width (RBC) [Ratio] 12.2 % 11.6-14.6 [facility] Erythrocyte distribution wid th standard deviationOrdered By: [facility] Orlando on 07-05-2024 Erythrocyte distribution width (RBC) [Ratio] 44.0 fl High 35.1-43.9 [facility] Ferritinon 07-05-2024 Ferritin [Mass/Vol] 33 ng/mL Normal 22-378 [facility] Comment on above: Performed By: #### L 100.0100, L100.9950, [id number], L503.6030 ####[facility] [address] [place], [address] Hematocrit Auto (Bld) [Volum e fraction]Ordered By: Fransisca Orlando on 07-05-2024 Hematocrit (Bld) [Volume fraction] 36.1 % Low 37-47 [facility] Hemoglobin measurementOrdere d By: Fransisca Orlando on 07-05-2024 Hemoglobin (Bld) [Mass/Vol] 12.1 g/dL 12.0-15.0 [facility] Immature granulocytes/100 WB C Auto (Bld)Ordered By: Fransisca Orlando on 07-05-2024 Immature granulocytes/100 WBC (Bld) 0.200 % 0.0-0.9 [facility] Comment on above: IG% - Immature Granu locytes (promyelocytes, myelocytes and metamyelocytes) > 1% indicates that a LEFT SHIFT is Present. Iron measurement (mass/mass) Ordered By: Fransisca Orlando on 07-05-2024 Iron (Unsp spec) [Mass/Mass] 114 ug/dL 50-170 [facility] Iron+Iron Binding Capacityon 07-05-2024 TIBC 231 ug/dL Low 250-450 [facility] Comment on above: Performed By: #### L 100.0100, L100.9950, L503.6550, L503.6030 ####[facility] [address] [place], [address] MCV (mean corpuscular volume ) determinationOrdered By: Fransisca Orlando on 07-05-2024 MCV (RBC) [Entitic vol] 97.3 fL 81-99 [facility] Mean corpuscular hemoglobin (MCH) determinationOrdered By: [facility] on 07-05-2024 MCH (RBC) [Entitic mass] 32.6 pg High 27.0-32.0 [facility] Mean corpuscular hemoglobin concentration (MCHC) determinationOrdered By: Fransisca Orlando on 07-05-2024 MCHC (RBC) [Mass/Vol] 33.5 g/dL 32-36 [facility] Mean platelet volume determi nationOrdered By: Fransisca Orlando on 07-05-2024 Platelet mean volume (Bld) [Entitic vol] 10.1 fL 6.2-12.0 [facility] Monocyte percentageOrdered B y: Fransisca Orlando on 07-05-2024 Monocytes/100 WBC (Bld) 7.9 % 0-10 [facility] Neutrophil percentageOrdered By: [facility] on 07-05-2024 Neutrophils/100 WBC (Bld) 75.2 % High 47-70 [facility] No Panel InformationOrdered By: Fransisca Orlando on 07-05-2024 Unsaturated Iron Binding Capacity 117 ug/dL Low 228-428 [facility] 117 ug/dL Low 228-428 [facility] Nucleated red blood cell per centageOrdered By: Fransisca Orlando on 07-05-2024 Nucleated RBC/100 WBC (Bld) [Ratio] 0 % 0-5 [facility] Oncology Visit Reporton Oncology Visit Report Normal [facility] Platelet countOrdered By: Adan Orlando on 07-05-2024 Platelets (Bld) [#/Vol] 204 10*3/uL 150-450 [facility] RBC Auto (Bld) [#/Vol]Ordere d By: Fransisca Orlando on 07-05-2024 RBC (Bld) [#/Vol] 3.71 10*6/uL Low 4.2-5.4 [facility] Retic Panelon 07-05-2024 IM RET FRACTION 8.30 Normal 3.00-15.90 [facility] Comment on above: Performed By: #### L 100.0100, L100.9950, L503.6550, L503.6030 ####[facility] [address] [place], [address] RET-HE 34.9 pg Normal 30-35 [facility] Comment on above: Performed By: #### L 100.0100, L100.9950, [id number], L503.6030 ####[facility] [address] [place], [address] Retic Count 1.72 High 0.5-1.5 [facility] Comment on above: Performed By: #### L 100.0100, L100.9950, [id number], L503.6030 ####[facility] [address] [place], [address] Reticulocyte hemoglobin equi valent (RET-He) measurementOrdered By: Fransisca Orlando on 07-05-2024 Hemoglobin (Reticulocytes) [Entitic mass] 34.9 pg 30-35 [facility] Reticulocytes Auto (Bld) [#/ Vol]Ordered By: Fransisca Orlando on 07-05-2024 Reticulocytes/100 RBC (Bld) 1.72 % High 0.5-1.5 [facility] Serum or plasma ferritin pineda surement (mass/volume)Ordered By: Fransisca Orlando on 07-05-2024 Ferritin [Mass/Vol] 33 ng/mL 22-378 [facility] Serum or plasma iron saturat ion measurement (mass fraction)Ordered By: Fransisca Orlando on 07-05-2024 Iron saturation [Mass fraction] 49.4 % 15.0-55.0 [facility] Comment on above: Previous reported re sult: 49.0 %Edited by: TREVA on 07/05/24:1659 AMENDED REPORT 07/05/241658 IRON SATURATION previously reported as: 49.0 % White blood cell (WBC) count Ordered By: Fransisca Orlando on 07-05-2024 WBC (Bld) [#/Vol] 6.3 10*3/uL 4.4-11.0 [facility] Absolute lymphocyte countOrd ered By: Sukumar Velazquez on 06-30-2024 Lymphocytes Auto (Unsp spec) [#/Vol] 0.87 10*3/uL 0.83-4.51 [facility] Automated lymphocyte count a s percentage of total leukocytesOrdered By: Sukumar Velazquez on 06-30-2024 Lymphocytes/100 WBC Auto (Unsp spec) 21.8 % 19-41 [facility] BUN/creatinine ratioOrdered By: Sukumar Velazquez on 06-30-2024 Urea nitrogen/Creatinine [Mass ratio] 65.7 mg/mg High 10-20 [facility] Basophil percentageOrdered B y: Sukumar Velazquez on 06-30-2024 Basophils/100 WBC (Bld) 0.5 % 0-1 [facility] Carbon dioxide measurementOr dered By: Sukumar Velazquez on 06-30-2024 CO2 [Moles/Vol] 28.8 mmol/L 22.0-29.0 [facility] Chloride measurementOrdered By: Sukumar Velazquez on 06-30-2024 Chloride [Moles/Vol] 104 mmol/L 96-108 [facility] Eosinophil percentageOrdered By: Sukumar Velazquez on 06-30-2024 Eosinophils/100 WBC (Bld) 5.5 % High 0-5 [facility] Erythrocyte distribution wid th ratioOrdered By: Sukumar Velazquez on 06-30-2024 Erythrocyte distribution width (RBC) [Ratio] 12.3 % 11.6-14.6 [facility] Erythrocyte distribution wid th standard deviationOrdered By: Sukumar Velazquez on 06-30-2024 Erythrocyte distribution width (RBC) [Ratio] 44.6 fl High 35.1-43.9 [facility] Glomerular filtration rate ( GFR) estimation/1.73 sq m using serum, plasma, or whole bOrdered By: Seragalesburgsoumya Velazquez on 06-30-2024 GFR/1.73 sq M.predicted among non-blacks MDRD (S/P/Bld) [Vol rate/Area] 98 mL/min/{1.73_m2} >60 [facility] Hematocrit Auto (Bld) [Volum e fraction]Ordered By: Sukumar Velazquez on 06-30-2024 Hematocrit (Bld) [Volume fraction] 34.1 % Low 37-47 [facility] Hemoglobin measurementOrdere d By: Sukumar Velazquez on 06-30-2024 Hemoglobin (Bld) [Mass/Vol] 11.2 g/dL Low 12.0-15.0 [facility] Immature granulocytes/100 WB C Auto (Bld)Ordered By: Sukumar Velazquez 06-30-2024 Immature granulocytes/100 WBC (Bld) 0.500 % 0.0-0.9 [facility] MCV (mean corpuscular volume ) determinationOrdered By: Sukumar Velazquez on 06-30-2024 MCV (RBC) [Entitic vol] 99.1 fL High 81-99 [facility] Mean corpuscular hemoglobin (MCH) determinationOrdered By: Sukumar Velazquez 06-30-2024 MCH (RBC) [Entitic mass] 32.6 pg High 27.0-32.0 [facility] Monocyte percentageOrdered B y: Sukumar Velazquez on 06-30-2024 Monocytes/100 WBC (Bld) 13.8 % High 0-10 [facility] Neutrophil percentageOrdered By: Sukumar Velazquez on 06-30-2024 Neutrophils/100 WBC (Bld) 57.9 % 47-70 [facility] Platelet countOrdered By: Maya Velazquez on 06-30-2024 Platelets (Bld) [#/Vol] 187 10*3/uL 150-450 [facility] RBC Auto (Bld) [#/Vol]Ordere d By: Sukumar Velazquez on 06-30-2024 RBC (Bld) [#/Vol] 3.44 10*6/uL Low 4.2-5.4 [facility] Serum glucose measurement (m ass/volume)Ordered By: Sukumar Velazquez on 06-30-2024 Glucose [Mass/Vol] 99 mg/dL 70-99 [facility] Serum or plasma anion gap de termination (moles/volume)Ordered By: Sukumar Velazquez on 06-30-2024 Anion gap [Moles/Vol] 7 mmol/L 5-15 [facility] Serum or plasma calcium cedric urement (mass/volume)Ordered By: Sukumar Velazquez on 06-30-2024 Calcium [Mass/Vol] 9.6 mg/dL 7.6-11.0 [facility] Serum or plasma creatinine m easurement (moles/volume)Ordered By: Sukumar Velazquez on 06-30-2024 Creatinine [Moles/Vol] 0.5 mg/dL Low 0.6-1.0 [facility] Serum or plasma potassium me asurementOrdered By: Sukumar Velazquez on 06-30-2024 Potassium [Moles/Vol] 4.2 mmol/L 3.3-5.1 [facility] Serum or plasma sodium measu rement (moles/volume)Ordered By: Sukumar Velazquez on 06-30-2024 Sodium [Moles/Vol] 140 mmol/L 133-145 [facility] Serum or plasma urea nitroge n measurement (mass/volume)Ordered By: Sukumar Velazquez on 06-30-2024 Urea nitrogen [Mass/Vol] 34 mg/dL High 4-19 [facility] White blood cell (WBC) count Ordered By: Sukumar Velazquez on 06-30-2024 WBC (Bld) [#/Vol] 4.0 10*3/uL Low 4.4-11.0 [facility] Culture, Anaerobic Any Sourc nel 06-25-2024 CUAN Normal [facility] Comment on above: Performed By: #### M 100.3000, M100.4001, M1.1999 ####[facility] [address] [place], [address] Wound Cultureon 06-25-2024 WC Normal [facility] Comment on above: Performed By: #### M 100.3000, M100.4001, M100.1999 ####[facility] [address] [place], [address] Absolute lymphocyte countOrd ered By: Sukumar Velazquez on 06-23-2024 Lymphocytes Auto (Unsp spec) [#/Vol] 1.12 10*3/uL 0.83-4.51 [facility] Automated lymphocyte count a s percentage of total leukocytesOrdered By: Sukumar Velazquez on 06-23-2024 Lymphocytes/100 WBC Auto (Unsp spec) 28.8 % 19-41 [facility] Basophil percentageOrdered B y: Sukumar Velazquez on 06-23-2024 Basophils/100 WBC (Bld) 0.5 % 0-1 [facility] Carbon dioxide measurementOr dered By: Sukumar Velazquez on 06-23-2024 CO2 [Moles/Vol] 32.0 mmol/L 21.0-32.0 [facility] Chloride measurementOrdered By: Sukumar Velazquez on 06-23-2024 Chloride [Moles/Vol] 104 mmol/L 98-107 [facility] Eosinophil percentageOrdered By: Sukumar Velazquez on 06-23-2024 Eosinophils/100 WBC (Bld) 6.7 % High 0-5 [facility] Erythrocyte distribution wid th ratioOrdered By: Sukumar Velazquez on 06-23-2024 Erythrocyte distribution width (RBC) [Ratio] 12.3 % 11.6-14.6 [facility] Erythrocyte distribution wid th standard deviationOrdered By: Sukumar Velazquez on 06-23-2024 Erythrocyte distribution width (RBC) [Ratio] 45.8 fl High 35.1-43.9 [facility] Glomerular filtration rate ( GFR) estimationOrdered By: Sukumar Velazquez on 06-23-2024 GFR/1.73 sq M.predicted among non-blacks MDRD (S/P/Bld) [Vol rate/Area] 162 mL/min/{1.73_m2} >60 [facility] Glucose measurementOrdered B y: Sukumar Velazquez on 06-23-2024 Glucose [Mass/Vol] 87 mg/dL 74-106 [facility] Hematocrit Auto (Bld) [Volum e fraction]Ordered By: Sukumar Velazquez on 06-23-2024 Hematocrit (Bld) [Volume fraction] 33.9 % Low 37-47 [facility] Hemoglobin measurementOrdere d By: Sukumar Velazquez on 06-23-2024 Hemoglobin (Bld) [Mass/Vol] 10.9 g/dL Low 12.0-15.0 [facility] Immature granulocytes/100 WB C Auto (Bld)Ordered By: Sukumar Velazquez on 06-23-2024 Immature granulocytes/100 WBC (Bld) 0.300 % 0.0-0.9 [facility] MCV (mean corpuscular volume ) determinationOrdered By: Sukumar Velazquez on 06-23-2024 MCV (RBC) [Entitic vol] 100.6 fL High 81-99 [facility] Mean corpuscular hemoglobin (MCH) determinationOrdered By: Sukumar Velazquez on 06-23-2024 MCH (RBC) [Entitic mass] 32.3 pg High 27.0-32.0 [facility] Monocyte percentageOrdered B y: Sukumar Velazquez on 06-23-2024 Monocytes/100 WBC (Bld) 12.3 % High 0-10 [facility] Neutrophil percentageOrdered By: Sukumar Velazquez on 06-23-2024 Neutrophils/100 WBC (Bld) 51.4 % 47-70 [facility] Platelet countOrdered By: Maya rosie Ehcobyissa on 06-23-2024 Platelets (Bld) [#/Vol] 184 10*3/uL 150-450 [facility] Potassium measurementOrdered By: Sukumar Velazquez on 06-23-2024 Potassium [Moles/Vol] 4.2 mmol/L 3.5-5.1 [facility] RBC Auto (Bld) [#/Vol]Ordere d By: Sukumar Velazquez on 06-23-2024 RBC (Bld) [#/Vol] 3.37 10*6/uL Low 4.2-5.4 [facility] Serum or plasma calcium cedric urement (mass/volume)Ordered By: Sukumar Velazquez on 06-23-2024 Calcium [Mass/Vol] 9.4 mg/dL 8.5-10.1 [facility] Serum or plasma creatinine m easurement (mass/volume)Ordered By: Sukumar Velazquez on 06-23-2024 Creatinine [Mass/Vol] 0.41 mg/dL Low 0.55-1.02 [facility] Serum or plasma urea nitroge n measurement (mass/volume)Ordered By: Sukumar Velazquez on 06-23-2024 Urea nitrogen [Mass/Vol] 32 mg/dL High 7-18 [facility] Sodium levelOrdered By: Sera bela Caroline on 06-23-2024 Sodium [Moles/Vol] 138 mmol/L 136-145 [facility] White blood cell (WBC) count Ordered By: Sukumar Velazquez on 06-23-2024 WBC (Bld) [#/Vol] 3.9 10*3/uL Low 4.4-11.0 [facility] Anaerobic cultureOrdered By: Evelyn Robertson on 06-22-2024 Bacteria identified Anaer cx Nom (Unsp spec) Anaerobic cocci Abnormal [facility] Gram Stainon 06-22-2024 GS RIGHT BUTTOCK Gram Stain 4+ Red Blood Cells Rare Gram positive diplococci Rare Gram positive rods Normal [facility] Comment on above: Performed By: #### M 100.3000, M100.4001, M100.2000 ####[facility] [address] [place], [address] Gram stainOrdered By: Evelyn constantino on 06-22-2024 Microscopic observation Gram stain Nom (Unsp spec) [facility] Routine wound cultureOrdered By: Evelyn Robertson on 06-22-2024 Microbial culture, routine Haemophilus parainfluenzae Abnormal [facility] Absolute lymphocyte countOrd ered By: Sukumar Velazquez on 06-16-2024 Lymphocytes Auto (Unsp spec) [#/Vol] 1.10 10*3/uL 0.83-4.51 [facility] Automated lymphocyte count a s percentage of total leukocytesOrdered By: Sukumar Velazquez on 06-16-2024 Lymphocytes/100 WBC Auto (Unsp spec) 28.9 % 19-41 [facility] Basophil percentageOrdered B y: Sukumar Velazquez on 06-16-2024 Basophils/100 WBC (Bld) 0.5 % 0-1 [facility] Carbon dioxide measurementOr dered By: Sukumar Velazquez on 06-16-2024 CO2 [Moles/Vol] 32.0 mmol/L 21.0-32.0 [facility] Chloride measurementOrdered By: Sukumar Velazquez on 06-16-2024 Chloride [Moles/Vol] 106 mmol/L 98-107 [facility] Eosinophil percentageOrdered By: Sukumar Velazquez on 06-16-2024 Eosinophils/100 WBC (Bld) 8.4 % High 0-5 [facility] Erythrocyte distribution wid th ratioOrdered By: Sukumar Velazquez on 06-16-2024 Erythrocyte distribution width (RBC) [Ratio] 12.1 % 11.6-14.6 [facility] Erythrocyte distribution wid th standard deviationOrdered By: Sukumar Velazquez on 06-16-2024 Erythrocyte distribution width (RBC) [Ratio] 45.1 fl High 35.1-43.9 [facility] Glomerular filtration rate ( GFR) estimationOrdered By: Sukumar Baxterissa on 06-16-2024 GFR/1.73 sq M.predicted among non-blacks MDRD (S/P/Bld) [Vol rate/Area] 135 mL/min/{1.73_m2} >60 [facility] Glucose measurementOrdered B y: Seradeedeesoumya Stauffercobyissa on 06-16-2024 Glucose [Mass/Vol] 91 mg/dL 74-106 [facility] Hemat[facility] Auto (Bld) [Volum e fraction]Ordered By: Sukumar Stauffercobyissa on 06-16-2024 Hematocrit (Bld) [Volume fraction] 33.2 % Low 37-47 [facility] Hemoglobin measurementOrdere d By: Mayajeffrybela Ehcobyissa on 06-16-2024 Hemoglobin (Bld) [Mass/Vol] 10.8 g/dL Low 12.0-15.0 [facility] Immature granulocytes/100 WB C Auto (Bld)Ordered By: Sukumar Stauffercobyissa on 06-16-2024 Immature granulocytes/100 WBC (Bld) 0.300 % 0.0-0.9 [facility] MCV (mean corpuscular volume ) determinationOrdered By: Sukumar Stauffercobyissa on 06-16-2024 MCV (RBC) [Entitic vol] 99.7 fL High 81-99 [facility] Mean corpuscular hemoglobin (MCH) determinationOrdered By: Sukumar Stauffercobyissa on 06-16-2024 MCH (RBC) [Entitic mass] 32.4 pg High 27.0-32.0 [facility] Monocyte percentageOrdered B y: Mayajeffrydeedeesoumya Stauffercobyissa on 06-16-2024 Monocytes/100 WBC (Bld) 12.6 % High 0-10 [facility] Neutrophil percentageOrdered By: Mayajeffrydeedeesoumya Stauffercobyissa on 06-16-2024 Neutrophils/100 WBC (Bld) 49.3 % 47-70 [facility] Platelet countOrdered By: Maya terandeedeesoumya Stauffercobyissa on 06-16-2024 Platelets (Bld) [#/Vol] 201 10*3/uL 150-450 [facility] Potassium measurementOrdered By: Mayajeffrydeedeesoumya Stauffercobyissa on 06-16-2024 Potassium [Moles/Vol] 4.2 mmol/L 3.5-5.1 [facility] RBC Auto (Bld) [#/Vol]Ordere d By: Sukumar Velazquez on 06-16-2024 RBC (Bld) [#/Vol] 3.33 10*6/uL Low 4.2-5.4 [facility] Serum or plasma calcium cedric urement (mass/volume)Ordered By: Sukumar Velazquez on 06-16-2024 Calcium [Mass/Vol] 9.4 mg/dL 8.5-10.1 [facility] Serum or plasma creatinine m easurement (mass/volume)Ordered By: Sukumar Velazquez on 06-16-2024 Creatinine [Mass/Vol] 0.48 mg/dL Low 0.55-1.02 [facility] Serum or plasma urea nitroge n measurement (mass/volume)Ordered By: Sukumar Velazquez on 06-16-2024 Urea nitrogen [Mass/Vol] 33 mg/dL High 7-18 [facility] Sodium levelOrdered By: Sera bela Caroline on 06-16-2024 Sodium [Moles/Vol] 142 mmol/L 136-145 [facility] White blood cell (WBC) count Ordered By: Sukumar Velazquez on 06-16-2024 WBC (Bld) [#/Vol] 3.8 10*3/uL Low 4.4-11.0 [facility] Absolute lymphocyte countOrd ered By: Sukumar Velazquez on 06-09-2024 Lymphocytes Auto (Unsp spec) [#/Vol] 0.88 10*3/uL 0.83-4.51 [facility] Automated lymphocyte count a s percentage of total leukocytesOrdered By: Sukumar Velazquez on 06-09-2024 Lymphocytes/100 WBC Auto (Unsp spec) 24.0 % 19-41 [facility] Basophil percentageOrdered B y: Sukumar Velazquez on 06-09-2024 Basophils/100 WBC (Bld) 0.5 % 0-1 [facility] Carbon dioxide measurementOr dered By: Sukumar Velazquez on 06-09-2024 CO2 [Moles/Vol] 30.0 mmol/L 21.0-32.0 [facility] Chloride measurementOrdered By: Sukumar Velazquez on 06-09-2024 Chloride [Moles/Vol] 103 mmol/L 98-107 [facility] Eosinophil percentageOrdered By: Sukumar Velazquez on 06-09-2024 Eosinophils/100 WBC (Bld) 6.0 % High 0-5 [facility] Erythrocyte distribution wid th ratioOrdered By: Sukumar Velazquez on 06-09-2024 Erythrocyte distribution width (RBC) [Ratio] 12.5 % 11.6-14.6 [facility] Erythrocyte distribution wid th standard deviationOrdered By: Sukumar Velazquez on 06-09-2024 Erythrocyte distribution width (RBC) [Ratio] 46.3 fl High 35.1-43.9 [facility] Glomerular filtration rate ( GFR) estimationOrdered By: Sukumar Velazquez on 06-09-2024 GFR/1.73 sq M.predicted among non-blacks MDRD (S/P/Bld) [Vol rate/Area] 161 mL/min/{1.73_m2} >60 [facility] Glucose measurementOrdered B y: Sukumar Velazquez on 06-09-2024 Glucose [Mass/Vol] 81 mg/dL 74-106 [facility] Hematocrit Auto (Bld) [Volum e fraction]Ordered By: Sukumar Velazquez on 06-09-2024 Hematocrit (Bld) [Volume fraction] 33.5 % Low 37-47 [facility] Hemoglobin measurementOrdere d By: Sukumar Velazquez on 06-09-2024 Hemoglobin (Bld) [Mass/Vol] 10.5 g/dL Low 12.0-15.0 [facility] Immature granulocytes/100 WB C Auto (Bld)Ordered By: Sukumar Velazquez on 06-09-2024 Immature granulocytes/100 WBC (Bld) 0.300 % 0.0-0.9 [facility] MCV (mean corpuscular volume ) determinationOrdered By: Sukumar Velazquez 06-09-2024 MCV (RBC) [Entitic vol] 100.0 fL High 81-99 [facility] Mean corpuscular hemoglobin (MCH) determinationOrdered By: Sukumar Velazquez on 06-09-2024 MCH (RBC) [Entitic mass] 31.3 pg 27.0-32.0 [facility] Monocyte percentageOrdered B y: Sukumar Velazquez on 06-09-2024 Monocytes/100 WBC (Bld) 12.6 % High 0-10 [facility] Neutrophil percentageOrdered By: Sukumar Velazquez on 06-09-2024 Neutrophils/100 WBC (Bld) 56.6 % 47-70 [facility] Platelet countOrdered By: Maya Velazquez on 06-09-2024 Platelets (Bld) [#/Vol] 191 10*3/uL 150-450 [facility] Potassium measurementOrdered By: Sukumar Velazquez on 06-09-2024 Potassium [Moles/Vol] 4.1 mmol/L 3.5-5.1 [facility] RBC Auto (Bld) [#/Vol]Ordere d By: Sukumar Velazquez on 06-09-2024 RBC (Bld) [#/Vol] 3.35 10*6/uL Low 4.2-5.4 [facility] Serum or plasma calcium cedric urement (mass/volume)Ordered By: Sukumar Velazquez on 06-09-2024 Calcium [Mass/Vol] 9.1 mg/dL 8.5-10.1 [facility] Serum or plasma creatinine m easurement (mass/volume)Ordered By: Sukumar Velazquez on 06-09-2024 Creatinine [Mass/Vol] 0.41 mg/dL Low 0.55-1.02 [facility] Serum or plasma urea nitroge n measurement (mass/volume)Ordered By: Sukumar Velazquez on 06-09-2024 Urea nitrogen [Mass/Vol] 28 mg/dL High 7-18 [facility] Sodium levelOrdered By: Sera Velazquez on 06-09-2024 Sodium [Moles/Vol] 138 mmol/L 136-145 [facility] White blood cell (WBC) count Ordered By: Sukumar Velazquez on 06-09-2024 WBC (Bld) [#/Vol] 3.7 10*3/uL Low 4.4-11.0 [facility] Culture, Anaerobic Any Sourc nel 05-17-2024 CUAN RIGHT Cutibacterium acnes Normal [facility] Comment on above: Performed By: #### M 100.4001, M100.3000, M100.1999 ####[facility] [address] [place], [address] Wound Cultureon 05-14-2024 WC Normal [facility] Comment on above: Performed By: #### M 100.4001, M100.3000, M100.1999 ####[facility] [address] [place], [address] Gram Stainon 05-12-2024 GS RIGHT Gram Stain No organisms seen 4+ Red Blood Cells No Epithelial cells Normal [facility] Comment on above: Performed By: #### M 100.4001, M100.3000, M100.1999 ####[facility] [address] [place], [place], [address] CNPNon 05-09-2024 [facility] Telephone (INFDAK) ALEENA ANDREA ([id number]) 1950 F NFR Date Time Provider Department [...] picc. Thanks. MD Analy Devries Ann Marie, EFE 05/09/2024 3:53 PM Signed Verbal order relayed to patient's nurse at [facility]. Juliane Landa RN Allergies As of Date: 05/09/2024 Noted Allergy Reaction ZICONOTIDE 09/10/2020 14 - Other: See Comments Comments: Jaylenasim marisel Date Reviewed: 04/21/2024 Reviewed by: Viki Woodson RN - Fully Assessed Reason for Visit: CoPat Stop [9664] Prescriptions as of 05/09/2024 - ceFAZolin (ANCEF) [...] mg by mouth twice daily. - WHEELCHAIR MISC STANDING WHEELCHAIR Problem List As Of Date [...] Status:Closed by JULIANE LANDA on 05/09/24 Normal [facility] CBCDIF (EXTERNAL)on 05-05-19 25 BASO ABS [facility] Basophils/100 WBC (Bld) 1.1 % 0 - 1.5 % [facility] EOS ABS [facility] Eosinophils/100 WBC (Bld) 15 % Abnormal 1 - 3 % [facility] Erythrocyte distribution width (RBC) [Ratio] 14.7 % Abnormal 11.6 - 14.6 % [facility] Hematocrit (Bld) [Volume fraction] 30.9 % Abnormal 39 - 55 % [facility] Hemoglobin (Bld) [Mass/Vol] 9.8 g/dL Abnormal 14 - 16.5 g/dL [facility] Lymphocytes (Bld) [#/Vol] 0.95 10*3/uL Abnormal 1. 2 - 4 K/uL [facility] Lymphocytes/100 WBC (Bld) 25 % 20 - 30 % [facility] MCH (RBC) [Entitic mass] 33.2 pg 25. 4 - 34.6 pg [facility] MCHC (RBC) [Mass/Vol] 31.7 g/dL 30 - 3 6 g/dL [facility] MCV (RBC) [Entitic vol] 104.7 fL Abnormal 79 - 98 fL [facility] MONO ABS [facility] Monocytes/100 WBC (Bld) 11.1 % Abnormal 2 - 8 % [facility] NEUT ABS 1.8 K/uL Abnormal 1.9 - 8 K/uL [facility] Neutrophils/100 WBC (Bld) 47.5 % 40 - 74 % [facility] Platelet mean volume (Bld) [Entitic vol] 10.4 fL 7.4 - 10.4 fL [facility] Platelets (Bld) [#/Vol] 193 10*3/uL 140 - 440 K/uL [facility] RBC (Bld) [#/Vol] 2.95 10*6/uL Abnormal [facility] WBC (Bld) [#/Vol] 3.8 10*3/uL Abnormal 3.9 - 11 K/uL [facility] CNPNon 05-05-2024 ABISAIN Telephone (INFDAK) EMREALEENA ([id number]) 1950 F NFR Date Time Provider Department 05/05/24 JIM TORRES RADHATiny During your visit today, we recorded the [...] Visit: Results [95] Order(s):CREATININE BLOOD (AK,AV,EU,FV,HL,HUGH,MM ,SP) [[id number]] Order #: [id number] CBCDIF (EXTERNAL) [[id number]] Order #: [id number] Prescriptions as of 05/05/2024 - ceFAZolin (ANCEF) [...] mg by mouth twice daily. 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] ENCEPHALITIS NOS [G04.90, G04.91] OTHER GENERAL SYMPTOMS [R68.89] MIGRNE UNSP WO [facility] MGRN [G43.909] ROSACEA [L71.9] OSTEOPOROSIS NOS [...] Status:Closed by JULIANE LANDA on 05/05/24 Normal [facility] CREATININE BLOOD (AK,AV,EU,F V,HL,HUGH,MM,SP)on 05-05-2024 Creatinine [Mass/Vol] 0.39 mg/dL Abnormal 0.70 - 1.20 mg/dL [facility] GFR 170 [facility] GFR AFR AMER 206 [facility] No Panel Informationon 05-05 Interpretation and review of laboratory results Abnormal [facility] CNDSon 04-22-2024 CNDS HNO ID: [id number] Author: GUSTABO SALDIVAR MD Service: Hospital Medicine [...] pump, chronic decubitus ulcers, who presented to [facility] from [facility] with concerns of hip pain. Initial imaging [...] the patient to be discharged today to [facility] with one day prescription for opiates to which she expressed agreement. Operations During Hospitalization: None Procedures During Hospitalization: Two surgical debridements, CT A/P Active Hospital Problems as of 04/22/2024 Noted - Resolved POA Hospital Paraplegia ([facility]) 12/29/2001 - Present Yes Chronic pain Unknown - Present Yes Pressure injury of dorsum of left foot, stage 2 ([facility]) 09/22/2022 - Present Yes Pressure injury of right ischium, unstageable ([facility]) 04/14/2024 - Present Yes Pressure injury of right perineal ischial region, unstageable ([facility]) 04/14/2024 - Present Yes Post-op pain 04/15/2024 [...] return to baseline mental/physical health. Discharge Disposition: Longterm Facility Physical Exam: Physical Exam Constitutional: Appearance: [...] Musculoskeletal: General: (more content not included)... Normal [facility] CONSULT PROGon 04-21-2024 CONSULT PROG HNO ID: [id number] Author: ISAAC TRAMMELL APRN.CLOTH BLEACHING RANGE OPERATOR CHIEF, JAMES Service: General Surgery Author Type: Nurse Practitioner Type: Consult Progress Note Filed: 04/21/2024 09:16 Note Text: Summary: Surgery sign-off Emergency General Surgery Progress Note SERVICE DATE: April 21, 2024 Emergency General Surgery Service Pager: For questions or concerns Mon-Thu 6a-5p please page [phone]. After 5pm and on Weekends and Holidays, please page [phone] if in ICU or [phone] if on RNF. SUBJECTIVE: Right ischial pressure [...] kg/m? O2 Therapy: Room Air IANDO: Date 04/20/24699 - 04/21/24 0659 04/21/24 07 - 04/22/24 0659 Shift 3573-7978 2705-6207 0343-7564 24 Hour Total 2147-3223 0071-8946 8128-3492 24 Hour Total INTAKE Shift Total OUTPUT [...] 04/15/2024 Pressure injury of right ischium, unstageable ([facility]) 04/14/2024 Pressure injury of right perineal ischial region, unstageable ([facility]) 04/14/2024 Chronic constipation 04/14/2024 Pressure injury of dorsum of left foot, stage 2 ([facility]) 09/22/2022 Chronic pain Paraplegia ([facility]) 12/29/2001 Assessment: 73 year old female with PMHx of CAD, CHF, depression, hemorrhoids, osteoporosis, constipation, intrathecal pain pump, transverse myelitis causing LE paralysis, s/p lap augmentation cystoplasty with ileoileal catheterizable stoma at the umbilicus for neurogenic bladder. CTAP from [place] showed right sided 8.5x8.3cm subcutaneous abscess extending [...] with attending: (more content not included)... Normal [facility] NUTRITIONon 04-21-2024 NUTRITION HNO ID: [id number] Author: LUIS MO RD Service: Nutrition Therapy [...] bedscale wt is inaccurate) Dosing Weight Type: [place] body weight Estimated kilocalorie needs: 1440-1680kcals Calorie [...] April 21, 2024 TIME: 9:38 AM Normal [facility] CBC panel Auto (Bld)on 04-20 Erythrocyte distribution width (RBC) [Ratio] 16.0 % High 11.5-15.0 [facility] Comment on above: Order Comment: Shayy weiss Type: BLOOD SPECIMEN Ordering Facility: [facility] Address: [address] [place] [address] Performed By: #### 5 8410-2 #### [facility] CLIA [id number] [address] OF [facility] Hematocrit (Bld) [Volume fraction] 25.2 % Low 36.0-46.0 [facility] Comment on above: Order Comment: Shayy weiss Type: BLOOD SPECIMEN Ordering Facility: [facility] Address: [address] [place] [address] Performed By: #### 5 8410-2 #### [facility] CLIA [id number] [address] STATES OF [facility] Hemoglobin (Bld) [Mass/Vol] 8.0 g/dL Low 11.5-15.5 [facility] Comment on above: Order Comment: Shayy weiss Type: BLOOD SPECIMEN Ordering Facility: [facility] Address: [address] [place] [address] Performed By: #### 5 8410-2 #### [facility] CLIA [id number] [address] [place] MCH (RBC) [Entitic mass] 32.7 pg Normal 26.0-34.0 [facility] Comment on above: Order Comment: Speci men Type: BLOOD SPECIMEN Ordering Facility: [facility] Address: [address] [place] [address] Performed By: #### 5 8410-2 #### [facility] CLIA [id number] [address] MCHC (RBC) [Mass/Vol] 31.7 g/dL Normal 30.5-36.0 [facility] Comment on above: Order Comment: Speci men Type: BLOOD SPECIMEN Ordering Facility: [facility] Address: [address] [place] [address] Performed By: #### 5 8410-2 #### [facility] CLIA [id number] [address] MCV (RBC) [Entitic vol] 102.9 fL High 80.0-100.0 [facility] Comment on above: Order Comment: Speci men Type: BLOOD SPECIMEN Ordering Facility: [facility] Address: [address] [place] [address] Performed By: #### 5 8410-2 #### [facility] CLIA [id number] [address] Nucleated RBC (Bld) [#/Vol] 10*3/uL Normal <0.01 [facility] Comment on above: Order Comment: Speci men Type: BLOOD SPECIMEN Ordering Facility: [facility] Address: [address] [place] [address] Performed By: #### 5 8410-2 #### [facility] CLIA [id number] [address] Platelet mean volume (Bld) [Entitic vol] 9.4 fL Normal 9.0-12.7 [facility] Comment on above: Order Comment: Speci men Type: BLOOD SPECIMEN Ordering Facility: [facility] Address: [address] [place] [address] Performed By: #### 5 8410-2 #### [facility] CLIA [id number] [address] OF [facility] Platelets (Bld) [#/Vol] 370 10*3/uL Normal 150-400 [facility] Comment on above: Order Comment: Speci men Type: BLOOD SPECIMEN Ordering Facility: [facility] Address: [address] [place] [address] Performed By: #### 5 8410-2 #### [facility] CLIA [id number] [address] OF [facility] RBC (Bld) [#/Vol] 2.45 10*6/uL Low 3.90-5.20 [facility] Comment on above: Order Comment: Speci men Type: BLOOD SPECIMEN Ordering Facility: [facility] Address: [address] [place] [address] Performed By: #### 5 8410-2 #### [facility] CLIA [id number] [address] OF [facility] WBC (Bld) [#/Vol] 8.00 10*3/uL Normal 3.70-11.00 [facility] Comment on above: Order Comment: Speci men Type: BLOOD SPECIMEN Ordering Facility: [facility] Address: [address] [place] [address] Performed By: #### 5 8410-2 #### [facility] CLIA [id number] [address] CONSULT PROGon 04-20-2024 CONSULT PROG HNO ID: [id number] Author: KYLEE VANCE APRN.CLOTH BLEACHING RANGE OPERATOR CHIEF Service: General Surgery Author Type: Nurse Practitioner Type: Consult Progress Note Filed: 04/20/2024 17:33 Note Text: Emergency General Surgery Progress Note SERVICE DATE: April 20, 2024 Emergency General Surgery Service Pager: For questions or concerns Mon-Fri 6a-5p please page [phone]. After 5pm and on Weekends and Holidays, please page [phone] if in ICU or [phone] if on RNF. SUBJECTIVE: EGS is following for Right ischial pressure ulcer. Tolerated 2nd debridement 12/17 Her pain is well controlled Needing to [...] kg/m? O2 Therapy: Room Air IANDO: Date 04/19/24699 - 04/20/2465804/20/24 07 - 04/21/24 0659 Shift 1131-8387 7111-0063 2480-5006 24 Hour Total 1626-1028 7181-1537 1530-5733 24 Hour Total INTAKE PO 120 240 350 710 PO 120 240 350 710 IV 600 378 320 0789 Volume (mL) (piperacillin-tazobac araujo iv piggyback 3.375 g in dextrose (iso-osmotic) 50 mL (ZOSYN)) 50 50 100 200 Volume (mL) (vancomycin 750 mg in D5W 250 mL Vial-Bag (VANCOCIN)) 250 250 500 Volume (mL) (lactated ringers iv infusion) 300 300 Shift Total 720 551 517 9651 OUTPUT Urine 9192 311 4165 2200 2200 Straight cath (ml) 0887 264 7586 2200 2200 # of BMs Number of BMs 1 x 1 x 1 x 1 x Blood 20 20 Estimated Blood loss 20 20 Shift Total 20 3105 524 9562 2200 2200 Weight (kg) 54.1 54.1 54.1 [...] (PWD) 1 mg patient's own pump - [facility] placeholder INTRATHECAL CONTINUOUS traZODone 100 mg tab(s) [...] 04/15/2024 Pressure injury of right ischium, unstageable ([facility]) 04/14/2024 Pressure injury of right perineal ischial region, unstageable ([facility]) 04/14/2024 Chronic constipation 04/14/2024 Pressure injury of dorsum of left foot, stage 2 ([facility]) 09/22/2022 Chronic pain Paraplegia ([facility]) 12/29/2001 Assessment: 73 year old female with PMHx of CAD, CHF, depression, hemorrhoids, osteoporosis, constipation, intrathecal pain pump, transverse myelitis causing LE paralysis, s/p lap augmentation cystoplasty with ileoileal catheterizable stoma at the umbilicus for neurogenic bladder. CTAP from [place] showed right sided 8.5x8.3cm subcutaneous abscess extending [...] protein intake (more content not included)... Normal [facility] CONSULT PROG HNO ID: [id number] Author: JIM TORRES MD Service: Infectious Disease Author Type: Physician Type: Consult Progress Note Filed: 04/20/2024 16:46 Note Text: PROGRESS NOTE INFECTIOUS DISEASE BRIEF SUMMARY: 73 year old female Transverse myelitis, neurogenic bladder status post lap augmentation cystoplasty with ileal ileal right sacral,, CAD, hypertension, chronic sacral decubitus ulcer, chronic pain on intrathecal pain pump presented to [facility] 04/13/2024 for 1 week right hip [...] Drains, and Airways Line Duration Peripheral 04/14/24 [facility] Short Left Hand 20 Gauge 6 days [...] Units Date/Time WOUND CULTURE AND GRAM STAIN [[id number]] (Abnormal) (Susceptibility) Collected: 04/16/24 1132 Order Status: Completed Specimen: Aspirate/Fine Needle Aspirate from Abscess (Specify site in comment) Updated: 04/19/24 1457 Culture, Wound Rare Staphylococcus aureus Gram Stain No organisms seen Many Polymorphonuclear leukocytes Many Red Blood Cells Agnieszka (more content not included)... Normal [facility] CONSULT PROG HNO ID: [id number] Author: DANNIE LANDEROS RPh Service: Pharmacy Author [...] pharmacy if there are questions. Dannie Landeros RPh Normal [facility] CREATININE BLDon 04-20-2024 Creatinine [Mass/Vol] 0.49 mg/dL Low 0.58-0.96 [facility] Comment on above: Order Comment: Speci men Type: BLOOD SPECIMEN Ordering Facility: [facility] Address: [address] [place] [address] Performed By: #### C RET1 #### [facility] CLIA [id number] [address] [place] [address] [place] Creatinine and Glomerular filtration rate.predicted panel (S/P/Bld) 100 mL/min/1.73m??? Normal >=60 [facility] Comment on above: Order Comment: Speci men Type: BLOOD SPECIMEN Ordering Facility: [facility] Address: [facility] [place] [address] Result Comment: Kristina mated Glomerular Filtration Rate [...] By: #### C RET1 #### [facility] CLIA [id number] [address] OF [facility] PT EDon 04-20-2024 PT ED HNO ID: [id number] Author: YUKO PUTNAM RN Service: PICC Team [...] PATIENT EDUCATION SECTION OF THE EMR Normal [facility] ANES POSTPROC EVALon 024 ANES POSTPROC EVAL HNO ID: [id number] Author: MEGAN MAAY MD Service: Anesthesiology Author Type: Physician Type: Anesthesia Postprocedure Evaluation Filed: 04/19/2024 14:08 Note Text: POST ANESTHESIA EVALUATION NOTE : 1950 Procedure Summary Date: 04/19/24 Room / Location: [place] OR 17 / [place] Anesthesia Start: 1046 Anesthesia Stop: 1156 [...] April 19, 2024 TIME: 2:07 PM CSN: [id number] [facility] ANES PRE-OPon 04-19-2024 ANES PRE-OP HNO ID: [id number] Author: MEGAN MAYA MD Service: Anesthesiology Author Type: Physician Type: Anesthesia Preprocedure Evaluation Filed: 04/19/2024 14:09 Note Text: ANESTHESIOLOGY DAY OF SURGERY NOTE : 1950 Procedure Information Date/Time: 04/19/24 1045 Procedure: DEBRIDEMENT AND EXCISION SACRAL PRESSURE ULCER (Right: Sacrum) Location: [place] OR 17 / [place] OR Surgeons: Jennifer Jean MD Estimated body [...] and consent discussed: yes. Patient / Responsible Constitution Party agrees to proceed: yes Patient / [...] mouth t (more content not included)... Normal [facility] CONSULT PROGon 04-19-2024 CONSULT PROG HNO ID: [id number] Author: FANI ALMODOVAR RPh Service: Hospital Medicine [...] questions, please contact Fani Almodovar PharmD at [phone]. Age: [age] year old Allergies: ALLERGIES Allergen [...] 16.7 04/15/2024 0908 10.8 Fani Almodovar, CharlineD, [facility] CONSULT PROG HNO ID: [id number] Author: KYLEE VANCE APRN.CLOTH BLEACHING RANGE OPERATOR CHIEF Service: General Surgery Author Type: Nurse Practitioner [...] 0659 04/19/24 0700 - 04/20/24 0659 Shift 3346-2920 8117-7018 24 Hour Total 9261-9798 6819-7456 9517-2160 24 Hour Total INTAKE PO 240 718 [...] 04/15/2024 Pressure injury of right ischium, unstageable ([facility]) 04/14/2024 Pressure injury of right perineal ischial region, unstageable ([facility]) 04/14/2024 Chronic constipation 04/14/2024 Pressure injury of dorsum of left foot, stage 2 ([facility]) 09/22/2022 Chronic pain Paraplegia ([facility]) 12/29/2001 Assessment: 73 year old female with PMHx of CAD, CHF, depression, hemorrhoids, osteoporosis, constipation, intrathecal pain pump, transverse myelitis causing LE paralysis, s/p lap augmentation cystoplasty with ileoileal catheterizable stoma at the umbilicus for neurogenic bladder. CTAP from [place] showed right sided 8.5x8.3cm subcutaneous abscess extending [...] Zosyn and (more content not included)... Normal [facility] Hgb Bld-mCncon 04-19-2024 Hemoglobin (Bld) [Mass/Vol] 8.3 g/dL Low 11.5-15.5 [facility] Comment on above: Order Comment: Speci men Type: BLOOD SPECIMEN Ordering Facility: [facility] Address: [address] [place] [address] Performed By: #### C RET1 #### [facility] CLIA [id number] [address] [place] [id number] [facility] OPERATIVE NOon 04-19-2024 OPERATIVE NO HNO ID: [id number] Author: JENNIFER JEAN MD Service: General Surgery [...] Time: 3:35 PM OPERATIVE/PROCEDURE REPORT LOG ID: [id number] SURGERY/PROCEDURE DATE: 04/19/2024 INCISION/PROCEDURE START TIME: 11:12 AM INCISION CLOSE/PROCEDURE END TIME: 11:40 AM SURGEON(S)/PROCEDURAL IST(S) AND PARTY SUPPLY SPECIALIST(S): Surgeons and Role: * Jennifer Jean MD [...] April 19, 2024 TIME: 2:03 PM Normal [facility] CONSULT PROGon 04-18-2024 CONSULT PROG HNO ID: [id number] Author: JIM TORRES MD Service: Infectious Disease Author Type: Physician Type: Consult Progress Note Filed: 04/18/2024 16:59 Note Text: PROGRESS NOTE INFECTIOUS DISEASE BRIEF SUMMARY: 73 year old female Transverse myelitis, neurogenic bladder status post lap augmentation cystoplasty with ileal ileal right sacral,, CAD, hypertension, chronic sacral decubitus ulcer, chronic pain on intrathecal pain pump presented to [facility] 04/13/2024 for 1 week right hip [...] (PWD) 1 mg patient's own pump - [facility] placeholder INTRATHECAL CONTINUOUS traZODone 100 mg tab(s) [...] Drains, and Airways Line Duration Peripheral 04/14/24 [facility] Short Left Hand 20 Gauge 4 days [...] Units Date/Time WOUND CULTURE AND GRAM STAIN [[id number]] (Abnormal) Collected: (more content not included)... Normal [facility] Culture, Anaerobic Any Sourc nel 04-18-2024 CUAN RIGHT No anaerobic bacteria isolated. Normal [facility] Comment on above: Performed By: #### M 100.4001, M100.2000, M100.3000 ####[facility] [id number] [place], [address] Basic metabolic 2000 panelon 04-17-2024 Anion gap [Moles/Vol] 8 mmol/L Normal 8-15 [facility] Comment on above: Order Comment: Speci men Type: BLOOD SPECIMEN Ordering Facility: [facility] Address: [address] [place] [address] Performed By: #### 5 8410-2 #### [facility] CLIA [id number] [address] [place] [address] [place] Calcium [Mass/Vol] 8.4 mg/dL Low 8.5-10.2 [facility] Comment on above: Order Comment: Speci men Type: BLOOD SPECIMEN Ordering Facility: [facility] Address: [address] [place] [address] Performed By: #### 5 8410-2 #### [facility] CLIA [id number] [address] [place] [address] [place] Chloride [Moles/Vol] 100 mmol/L Normal 98-107 [facility] Comment on above: Order Comment: Speci men Type: BLOOD SPECIMEN Ordering Facility: [facility] Address: [address] [place] [address] Performed By: #### 5 8410-2 #### [facility] CLIA [id number] [address] [place] [address] [place] CO2 [Moles/Vol] 27 mmol/L Normal 22-30 [facility] Comment on above: Order Comment: Speci men Type: BLOOD SPECIMEN Ordering Facility: [facility] Address: [address] [place] [address] Performed By: #### 5 8410-2 #### [facility] CLIA [id number] [address] [place] [address] [place] Creatinine [Mass/Vol] 0.49 mg/dL Low 0.58-0.96 [facility] Comment on above: Order Comment: Shayy weiss Type: BLOOD SPECIMEN Ordering Facility: [facility] Address: [address] [place] [address] Performed By: #### 5 8410-2 #### [facility] CLIA [id number] 1 09 [address] Creatinine and Glomerular filtration rate.predicted panel (S/P/Bld) 100 mL/min/1.73m??? Normal >=60 [facility] Comment on above: Order Comment: Shayy weiss Type: BLOOD SPECIMEN Ordering Facility: [facility] Address: [address] [place] [address] Result Comment: Kristina mated Glomerular Filtration Rate [...] By: #### 5 8410-2 #### [facility] CLIA [id number] [address] [place] [address] [place] Glucose [Mass/Vol] 97 mg/dL Normal 74-99 [facility] Comment on above: Order Comment: Shayy weiss Type: BLOOD SPECIMEN Ordering Facility: [facility] Address: [address] [place] [address] Result Comment: The [place] Diabetes Association (ADA) provides guidance for cutoff [...] Standards of Medical Care in Diabetes 2016, [place] [employer]. Diabetes Care. 2016.39(Suppl 1). Performed By: #### 5 8410-2 #### [facility] CLIA [id number] [address] STATES [facility] Potassium [Moles/Vol] 4.4 mmol/L Normal 3.7-5.1 [facility] Comment on above: Order Comment: Speci men Type: BLOOD SPECIMEN Ordering Facility: [facility] Address: [facility] [place] [address] Performed By: #### 5 8410-2 #### [facility] CLIA [id number] [address] Sodium [Moles/Vol] 135 mmol/L Low 136-144 [facility] Comment on above: Order Comment: Speci men Type: BLOOD SPECIMEN Ordering Facility: [facility] Address: [address] [place] [address] Performed By: #### 5 8410-2 #### [facility] CLIA [id number] [address] Urea nitrogen [Mass/Vol] 10 mg/dL Normal 7-21 [facility] Comment on above: Order Comment: Speci men Type: BLOOD SPECIMEN Ordering Facility: [facility] Address: [address] [place] [address] Performed By: #### 5 8410-2 #### [facility] CLIA [id number] [address] [place] CBC panel Auto (Bld)on 04-17 Erythrocyte distribution width (RBC) [Ratio] 16.0 % High 11.5-15.0 [facility] Comment on above: Order Comment: Speci men Type: BLOOD SPECIMEN Ordering Facility: [facility] Address: [address] [place] [address] Performed By: #### 5 8410-2 #### [facility] CLIA [id number] [address] OF [facility] Hematocrit (Bld) [Volume fraction] 24.9 % Low 36.0-46.0 [facility] Comment on above: Order Comment: Speci men Type: BLOOD SPECIMEN Ordering Facility: [facility] Address: [address] [place] [address] Performed By: #### 5 8410-2 #### [facility] CLIA [id number] [address] OF [place] Hemoglobin (Bld) [Mass/Vol] 8.0 g/dL Low 11.5-15.5 [facility] Comment on above: Order Comment: Speci men Type: BLOOD SPECIMEN Ordering Facility: [facility] Address: [address] [place] [address] Performed By: #### 5 8410-2 #### [facility] CLIA [id number] [address] MCH (RBC) [Entitic mass] 32.5 pg Normal 26.0-34.0 [facility] Comment on above: Order Comment: Speci men Type: BLOOD SPECIMEN Ordering Facility: [facility] Address: [address] [place] [address] Performed By: #### 5 8410-2 #### [facility] CLIA [id number] [address] [place] MCHC (RBC) [Mass/Vol] 32.1 g/dL Normal 30.5-36.0 [facility] Comment on above: Order Comment: Speci men Type: BLOOD SPECIMEN Ordering Facility: [facility] Address: [address] [place] [address] Performed By: #### 5 8410-2 #### [facility] CLIA [id number] [address] MCV (RBC) [Entitic vol] 101.2 fL High 80.0-100.0 [facility] Comment on above: Order Comment: Speci men Type: BLOOD SPECIMEN Ordering Facility: [facility] Address: [address] [place] [address] Performed By: #### 5 8410-2 #### [facility] CLIA [id number] [address] OF [place] Nucleated RBC (Bld) [#/Vol] 10*3/uL Normal <0.01 [facility] Comment on above: Order Comment: Speci men Type: BLOOD SPECIMEN Ordering Facility: [facility] Address: [facility] [place] [address] Performed By: #### 5 8410-2 #### [facility] CLIA [id number] [address] [place] Platelet mean volume (Bld) [Entitic vol] 9.1 fL Normal 9.0-12.7 [facility] Comment on above: Order Comment: Speci men Type: BLOOD SPECIMEN Ordering Facility: [facility] Address: [address] [place] [address] Performed By: #### 5 8410-2 #### [facility] CLIA [id number] [address] [place] Platelets (Bld) [#/Vol] 445 10*3/uL High 150-400 [facility] Comment on above: Order Comment: Speci men Type: BLOOD SPECIMEN Ordering Facility: [facility] Address: [address] [place] [address] Performed By: #### 5 8410-2 #### [facility] CLIA [id number] [address] [place] RBC (Bld) [#/Vol] 2.46 10*6/uL Low 3.90-5.20 [facility] Comment on above: Order Comment: Speci men Type: BLOOD SPECIMEN Ordering Facility: [facility] Address: [address] [place] [address] Performed By: #### 5 8410-2 #### [facility] CLIA [id number] [address] [place] WBC (Bld) [#/Vol] 8.34 10*3/uL Normal 3.70-11.00 [facility] Comment on above: Order Comment: Speci men Type: BLOOD SPECIMEN Ordering Facility: [facility] Address: [address], [place] [address] Performed By: #### 5 8410-2 #### [facility] CLIA [id number] 1 [place] [id number] [place] CONSULT PROGon 04-17-2024 CONSULT PROG HNO ID: [id number] Author: FANI ALMODOVAR RPh Service: Pharmacy Author [...] questions, please contact Fani Almodovar PharmD at [phone]. Age: [age] year old Allergies: ALLERGIES Allergen [...] 16.7 04/15/2024 0908 10.8 Fani Almodovar, CharlineD, [facility] Normal [facility] Vancomycin random [Mass/Vol] on 04-17-2024 Vancomycin [Mass/Vol] 16.7 ug/mL Normal 10.0-20.0 [facility] Comment on above: Order Comment: Speci men Type: BLOOD SPECIMEN Ordering Facility: [facility] Address: [facility] [place] [address] Result Comment: Refe rence ranges and high/low indicator flags are provided as general guidelines only. The treating physician must determine appropriate target levels/dosing based on the specific clinical situation. Performed By: #### 4 091-5 #### [facility] CLIA [id number] [address] OF [facility] BRIEF OP NOTon 04-16-2024 BRIEF OP NOT HNO ID: [id number] Author: ENRIQUE OLSEN MD Service: Interventional Radiology Author Type: Physician Type: Brief Op Note Filed: 04/16/2024 11:26 Note Text: BRIEF OPERATIVE / PROCEDURE NOTE LOG ID: [id number] SURGERY/PROCEDURE DATE: 04/16/2024 INCISION/PROCEDURE START TIME: 11:02 AM INCISION CLOSE/PROCEDURE END TIME: 11:22 AM SURGEON(S)/PROCEDURAL IST(S) AND PARTY SUPPLY SPECIALIST(S): Surgeons and Role: * Enrique Olsen MD, [...] DATE: April 16, 2024 TIME: 11:23 AM Normal [facility] Bacteria Wnd Culton 04-16-20 Bacteria [...] , Intermediate >4 , Resistant >8 Abnormal [facility] Comment on above: Performed By: #### 6 462-6 ####[facility] [id number] [address] OF [facility] Basic metabolic 2000 panelon 04-16-2024 Anion gap [Moles/Vol] 7 mmol/L Low 8-15 [facility] Comment on above: Order Comment: Speci men Type: BLOOD SPECIMENOrdering Facility: [facility] Address: [address] [place] [address] Performed By: #### 2 4321-2 ####[facility] [id number] [address] STATES OF [facility] Calcium [Mass/Vol] 8.2 mg/dL Low 8.5-10.2 [facility] Comment on above: Order Comment: Speci men Type: BLOOD SPECIMENOrdering Facility: [facility] Address: [address] [place] [address] Performed By: #### 2 4321-2 ####[facility] [id number] [address] [place] Chloride [Moles/Vol] 105 mmol/L Normal 98-107 [facility] Comment on above: Order Comment: Speci men Type: BLOOD SPECIMENOrdering Facility: [facility] Address: [address] [place] [address] Performed By: #### 2 4321-2 ####[facility] [id number] [address] CO2 [Moles/Vol] 27 mmol/L Normal 22-30 [facility] Comment on above: Order Comment: Speci men Type: BLOOD SPECIMENOrdering Facility: [facility] Address: [address] [place] [address] Performed By: #### 2 4321-2 ####[facility]IA [id number] [place] [id number] [facility] Creatinine [Mass/Vol] 0.48 mg/dL Low 0.58-0.96 [facility] Comment on above: Order Comment: Speci men Type: BLOOD SPECIMENOrdering Facility: [facility] Address: [address] [place] [address] Performed By: #### 2 4321-2 ####[facility] [id number] [address] Creatinine and Glomerular filtration rate.predicted panel (S/P/Bld) 101 mL/min/1.73m??? Normal >=60 [facility] Comment on above: Order Comment: Speci men Type: BLOOD SPECIMENOrdering Facility: [facility] Address: [address] [place] [address] Result Comment: Kristina mated Glomerular Filtration Rate [...] Performed By: #### 2 4321-2 ####[facility] [id number] [address] OF [facility] Glucose [Mass/Vol] 86 mg/dL Normal 74-99 [facility] Comment on above: Order Comment: Pollyi abhishek Type: BLOOD SPECIMENOrdering Facility: [facility] Address: [address] [place] [address] Result Comment: The [place] Diabetes Association (ADA) provides guidance for cutoff [...] Standards of Medical Care in Diabetes 2016, [place] [employer]. Diabetes Care. 2016.39(Suppl 1). Performed By: #### 2 4321-2 ####[facility] [id number] [address] STATES OF [facility] Potassium [Moles/Vol] 4.5 mmol/L Normal 3.7-5.1 [facility] Comment on above: Order Comment: Speci abhishek Type: BLOOD SPECIMENOrdering Facility: [facility] Address: [address] [place] [address] Performed By: #### 2 1-2 ####[id number] [address] STATES [facility] Sodium [Moles/Vol] 139 mmol/L Normal 136-144 [facility] Comment on above: Order Comment: Shayy weiss Type: BLOOD SPECIMENOrdering Facility: [facility] Address: [address] [place] [address] Performed By: #### 2 4321-2 ####[facility] [id number] [address] Urea nitrogen [Mass/Vol] 8 mg/dL Normal 7-21 [facility] Comment on above: Order Comment: Speci men Type: BLOOD SPECIMENOrdering Facility: [facility] Address: [address] [place] [address] Performed By: #### 2 4321-2 ####[facility] [id number] [address] [place] CBC panel Auto (Bld)on 04-16 Erythrocyte distribution width (RBC) [Ratio] 16.5 % High 11.5-15.0 [facility] Comment on above: Order Comment: Speci men Type: BLOOD SPECIMEN Ordering Facility: [facility] Address: [address] [place] [address] Performed By: #### 5 8410-2 #### [facility] CLIA [id number] [address] OF [facility] Hematocrit (Bld) [Volume fraction] 23.8 % Low 36.0-46.0 [facility] Comment on above: Order Comment: Speci men Type: BLOOD SPECIMEN Ordering Facility: [facility] Address: [address] [place] [address] Performed By: #### 5 8410-2 #### [facility] CLIA [id number] [address] [place] Hemoglobin (Bld) [Mass/Vol] 7.6 g/dL Low 11.5-15.5 [facility] Comment on above: Order Comment: Speci men Type: BLOOD SPECIMEN Ordering Facility: [facility] Address: [address] [place] [address] Performed By: #### 5 8410-2 #### [facility] CLIA [id number] [address] OF [facility] MCH (RBC) [Entitic mass] 32.6 pg Normal 26.0-34.0 [facility] Comment on above: Order Comment: Speci men Type: BLOOD SPECIMEN Ordering Facility: [facility] Address: [address] [place] [address] Performed By: #### 5 8410-2 #### [facility] CLIA [id number] [address] [place] MCHC (RBC) [Mass/Vol] 31.9 g/dL Normal 30.5-36.0 [facility] Comment on above: Order Comment: Speci men Type: BLOOD SPECIMEN Ordering Facility: [facility] Address: [address] [place] [address] Performed By: #### 5 8410-2 #### [facility] CLIA [id number] [address] [place] MCV (RBC) [Entitic vol] 102.1 fL High 80.0-100.0 [facility] Comment on above: Order Comment: Speci men Type: BLOOD SPECIMEN Ordering Facility: [facility] Address: [address] [place] [address] Performed By: #### 5 8410-2 #### [facility] CLIA [id number] [address] [place] Nucleated RBC (Bld) [#/Vol] 10*3/uL Normal <0.01 [facility] Comment on above: Order Comment: Speci men Type: BLOOD SPECIMEN Ordering Facility: [facility] Address: [address] [place] [address] Performed By: #### 5 8410-2 #### [facility] CLIA [id number] [address] [place] Platelet mean volume (Bld) [Entitic vol] 9.2 fL Normal 9.0-12.7 [facility] Comment on above: Order Comment: Speci men Type: BLOOD SPECIMEN Ordering Facility: [facility] Address: [address] [place] [address] Performed By: #### 5 8410-2 #### [facility] CLIA [id number] [address] Platelets (Bld) [#/Vol] 465 10*3/uL High 150-400 [facility] Comment on above: Order Comment: Speci men Type: BLOOD SPECIMEN Ordering Facility: [facility] Address: [address] [place] [address] Performed By: #### 5 8410-2 #### [facility] CLIA [id number] [address] [place] RBC (Bld) [#/Vol] 2.33 10*6/uL Low 3.90-5.20 [facility] Comment on above: Order Comment: Speci men Type: BLOOD SPECIMEN Ordering Facility: [facility] Address: [address] [place] [address], [place] [address] Performed By: #### 5 8410-2 #### [facility] CLIA [id number] [address] [place] WBC (Bld) [#/Vol] 6.27 10*3/uL Normal 3.70-11.00 [facility] Comment on above: Order Comment: Speci men Type: BLOOD SPECIMEN Ordering Facility: [facility] Address: [address] [id number] Performed By: #### 5 8410-2 #### [facility] CLIA [id number] [address] [place] [id number] [facility] CONSULT PROGon 04-16-2024 CONSULT PROG HNO ID: [id number] Author: CASE ERICKSON MD Service: General Surgery [...] Surgery Service Pager: For questions or concerns Mon-Thu 6a-5p please page [phone]. After 5pm and on Weekends and Holidays, please page [phone] if in ICU or [phone] if on RNF. SUBJECTIVE: Patient seen this [...] kg/m? O2 Therapy: Room Air IANDO: Date 04/15/24 07 - 04/16/24 0659 04/16/24 0700 - 04/17/24 0659 Shift 7759-3558 6414-3525 0465-5216 24 Hour Total 4426-2666 5876-8363 0331-9228 24 Hour Total INTAKE PO 240 660 900 PO 240 660 900 Shift Total 240 660 900 OUTPUT Urine 398 000 8665 2800 Void (ml) 989 591 9484 2800 Shift Total 763 208 8871 2800 Weight (kg) 54.1 54.1 54.1 54.1 [...] 04/15/2024 Pressure injury of right ischium, unstageable ([facility]) 04/14/2024 Pressure injury of right perineal ischial region, unstageable ([facility]) 04/14/2024 Chronic constipation 04/14/2024 Pressure injury of dorsum of left foot, stage 2 ([facility]) 09/22/2022 Assessment: 73 year old female with [...] placement Pl (more content not included)... Normal [facility] CT ASPIRATION SUBCUT ABSCESS on 04-16-2024 CT ASPIRATION SUBCUT ABSCESS * * *Final Report* * * DATE OF EXAM: Apr 16 2024 11:39AM [facility] 2049 - CT ASPIRATION SUBCUT ABSCESS / PROCEDURE REASON: Abscess * * * * Physician Interpretation * * * * PROCEDURE PERFORMED: CT GUIDED ASPIRATION INDICATION FOR PROCEDURE: The patient is a 73 years old Female who presents with rim-enhancing areas on CT concerning for abscesses. STAFF RADIOLOGIST: Enrique Olsen MD PARTY SUPPLY SPECIALIST(S): None CONSENT: The risks, benefits, treatment options, [...] performed by the: attending radiologist, without an medical record assistant. The attending radiologist performed the following [...] CT appearance is compatible with tissue necrosis). Chief Resource Officer: PSCB Transcribe Date/Time: Apr 18 2024 1:33P Dictated by : ENRIQUE OLSEN MD This examination was interpreted and the report reviewed and electronically signed by: ENRIQUE OLSEN MD on Apr 18 2024 1:38PM EST [id number] N Normal [facility] PT panel Coag (PPP)on 2023 INR Coag (PPP) [Relative time] 1.0 {INR} Normal 0.9-1.3 [facility] Comment on above: Order Comment: Shayy weiss Type: BLOOD SPECIMEN Ordering Facility: [facility] Address: [address] [place] [address] Result Comment: Cyndi min K Antagonist (VKA) Therapeutic Range: INR 2 to 3 (Target INR of 2.5) Note: For patients treated with VKA drugs, such as warfarin, the [place] [employer] 2012 Guideline recommends [...] 2.5 to 3.5 (target INR of 3). Candis GH, et al. Chest 2012, 141:7S-47S Ishan RA, et al. [facility] 2017, 70: 252-289 Performed By: #### C RET1 #### [facility] CLIA [id number] [address] [place] PT Coag (PPP) [Time] 11.4 s Normal 9.7-13.0 [facility] Comment on above: Order Comment: Shayy weiss Type: BLOOD SPECIMEN Ordering Facility: [facility] Address: [address] [place] [address] Performed By: #### C RET1 #### [facility] CLIA [id number] [address] [place] [address] [place] Basic metabolic 2000 panelon 04-15-2024 Anion gap [Moles/Vol] 7 mmol/L Low 8-15 [facility] Comment on above: Order Comment: Shayy weiss Type: BLOOD SPECIMEN Ordering Facility: [facility] Address: [address] [place] [address] Performed By: #### C RET1 #### [facility] CLIA [id number] [address] [place] Calcium [Mass/Vol] 7.7 mg/dL Low 8.5-10.2 [facility] Comment on above: Order Comment: Speci men Type: BLOOD SPECIMEN Ordering Facility: [facility] Address: [address] [place] [address] Performed By: #### C RET1 #### [facility] CLIA [id number] [address] [place] Chloride [Moles/Vol] 99 mmol/L Normal 98-107 [facility] Comment on above: Order Comment: Speci men Type: BLOOD SPECIMEN Ordering Facility: [facility] Address: [address] [place] [address] Performed By: #### C RET1 #### [facility] CLIA [id number] [address] [place] CO2 [Moles/Vol] 26 mmol/L Normal 22-30 [facility] Comment on above: Order Comment: Speci men Type: BLOOD SPECIMEN Ordering Facility: [facility] Address: [address] [place] [address] Performed By: #### C RET1 #### [facility] CLIA [id number] [address] [place] Creatinine [Mass/Vol] 0.38 mg/dL Low 0.58-0.96 [facility] Comment on above: Order Comment: Speci men Type: BLOOD SPECIMEN Ordering Facility: [facility] Address: [address] [place] [address] Performed By: #### C RET1 #### [facility] CLIA [id number] [address] Creatinine and Glomerular filtration rate.predicted panel (S/P/Bld) 107 mL/min/1.73m??? Normal >=60 [facility] Comment on above: Order Comment: Speci men Type: BLOOD SPECIMEN Ordering Facility: [facility] Address: [address] [place] [address] Result Comment: Kristina mated Glomerular Filtration Rate [...] GFR. Performed By: #### C RET1 #### [facility] CLIA [id number] [address] [place] [address] [place] Glucose [Mass/Vol] 174 mg/dL High 74-99 [facility] Comment on above: Order Comment: Speci men Type: BLOOD SPECIMEN Ordering Facility: [facility] Address: [address] [place] [address] Result Comment: The [place] [employer] (ADA) provides guidance for cutoff [...] Standards of Medical Care in Diabetes 2016, [place] [employer]. Diabetes Care. 2016.39(Suppl 1). Performed By: #### C RET1 #### [facility] CLIA [id number] [address] [place] [address] [place] Potassium [Moles/Vol] Normal [facility] Comment on above: Order Comment: Speci men Type: BLOOD SPECIMEN Ordering Facility: [facility] Address: [address] [place] [address] Result Comment: Unab le to assay due to interference from hemolysis. Suggest reorder as clinically indicated. Performed By: #### C RET1 #### [facility] CLIA [id number] [address] [place] [address] [place] Sodium [Moles/Vol] 132 mmol/L Low 136-144 [facility] Comment on above: Order Comment: Speci men Type: BLOOD SPECIMEN Ordering Facility: [facility] Address: [address] [place] [address] Performed By: #### C RET1 #### [facility] CLIA [id number] [address] Urea nitrogen [Mass/Vol] 9 mg/dL Normal 7-21 [facility] Comment on above: Order Comment: Speci men Type: BLOOD SPECIMEN Ordering Facility: [facility] Address: [address] [place] [address] Performed By: #### C RET1 #### [facility] CLIA [id number] [address] CBC panel Auto (Bld)on 04-15 Erythrocyte distribution width (RBC) [Ratio] 15.7 % High 11.5-15.0 [facility] Comment on above: Order Comment: Speci men Type: BLOOD SPECIMEN Ordering Facility: [facility] Address: [address] [place] [address] Performed By: #### C RET1 #### [facility] CLIA [id number] [address] Hematocrit (Bld) [Volume fraction] 25.5 % Low 36.0-46.0 [facility] Comment on above: Order Comment: Speci men Type: BLOOD SPECIMEN Ordering Facility: [facility] Address: [address] [place] [address] Performed By: #### C RET1 #### [facility] CLIA [id number] [address] STATES [facility] Hemoglobin (Bld) [Mass/Vol] 8.4 g/dL Low 11.5-15.5 [facility] Comment on above: Order Comment: Speci men Type: BLOOD SPECIMEN Ordering Facility: [facility] Address: [address] [place] [address] Performed By: #### C RET1 #### [facility] CLIA [id number] [address] MCH (RBC) [Entitic mass] 33.3 pg Normal 26.0-34.0 [facility] Comment on above: Order Comment: Speci men Type: BLOOD SPECIMEN Ordering Facility: [facility] Address: [address] [place] [address] Performed By: #### C RET1 #### [facility] CLIA [id number] [address] MCHC (RBC) [Mass/Vol] 32.9 g/dL Normal 30.5-36.0 [facility] Comment on above: Order Comment: Speci men Type: BLOOD SPECIMEN Ordering Facility: [facility] Address: [address] [place] [address] Performed By: #### C RET1 #### [facility] CLIA [id number] [address] MCV (RBC) [Entitic vol] 101.2 fL High 80.0-100.0 [facility] Comment on above: Order Comment: Speci men Type: BLOOD SPECIMEN Ordering Facility: [facility] Address: [address] [place] [address] Performed By: #### C RET1 #### [facility] CLIA [id number] [address] Nucleated RBC (Bld) [#/Vol] 10*3/uL Normal <0.01 [facility] Comment on above: Order Comment: Speci men Type: BLOOD SPECIMEN Ordering Facility: [facility] Address: [address] [place] [address] Performed By: #### C RET1 #### [facility] CLIA [id number] [address] Platelet mean volume (Bld) [Entitic vol] 9.7 fL Normal 9.0-12.7 [facility] Comment on above: Order Comment: Speci men Type: BLOOD SPECIMEN Ordering Facility: [facility] Address: [address] [place] [address] Performed By: #### C RET1 #### [facility] CLIA [id number] [address] OF [place] Platelets (Bld) [#/Vol] 594 10*3/uL High 150-400 [facility] Comment on above: Order Comment: Speci men Type: BLOOD SPECIMEN Ordering Facility: [facility] Address: [address] [place] [address] Performed By: #### C RET1 #### [facility] CLIA [id number] [address] OF [facility] RBC (Bld) [#/Vol] 2.52 10*6/uL Low 3.90-5.20 [facility] Comment on above: Order Comment: Speci men Type: BLOOD SPECIMEN Ordering Facility: [facility] Address: [address] [place] [address] Performed By: #### C RET1 #### [facility] CLIA [id number] [address] WBC (Bld) [#/Vol] 8.17 10*3/uL Normal 3.70-11.00 [facility] Comment on above: Order Comment: Speci men Type: BLOOD SPECIMEN Ordering Facility: [facility] Address: [address] [place] [address] Performed By: #### C RET1 #### [facility] CLIA [id number] [address] CONSULTon 04-15-2024 CONSULT HNO ID: [id number] Author: JIM TORRES MD Service: Infectious Disease [...] pain on intrathecal pain pump presented to [facility] 04/13/2024 for 1 week right hip [...] OF transverse mylitis pos. spasticity Respiratory failure ([facility]) Rosacea Transverse myelitis ([facility]) Unspecified cause of encephalitis, myelitis, and encephalomyelitis [...] Cancer Father 85 Ischemic Heart Disease Mother [place] ( in 2001) Osteoporosis Mother other (MS) O (more content not included)... Normal [facility] CONSULT PROGon 12-13-2024 CONSULT PROG HNO ID: [id number] Author: FANI ALMODOVAR RPh Service: Pharmacy Author [...] questions, please contact Fani Almodovar, PharmD at [phone]. 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 Last 3 Encounter Wt Readings: Date: [...] Date/Time Value 04/15/2024 0908 10.8 Fani Almodovar, CharlineD, [facility] CONSULT PROG HNO ID: [id number] Author: TARUN HARRIS DO Service: General Surgery [...] O2 Therapy: Room Air IANDO: Date 04/14/24 07 - 04/15/24 0659 04/15/24 07 - 04/16/24 0659 Shift 3858-2895 9556-6668 6979-5391 24 Hour Total 2524-0591 4884-4817 1545-3243 24 Hour Total INTAKE IV 1300 1300 Volume (mL) (lactated ringers 500 mL iv bolus) 500 500 Volume (mL) (lactated ringers iv infusion) 800 800 Shift Total 1300 1300 OUTPUT Urine 490 309 5346 Void (ml) 948 471 7643 Shift Total 285 725 6836 Weight (kg) 44.5 54.1 54.1 54.1 54.1 [...] (PWD) 1 mg patient's own pump - [facility] placeholder INTRATHECAL CONTINUOUS traZODone 100 mg tab(s) [...] 04/14/2024 Pressure injury of right ischium, unstageable ([facility]) 04/14/2024 Pressure injury of right perineal ischial region, unstageable ([facility]) 04/14/2024 Chronic constipation 04/14/2024 Pressure injury of dorsum of left foot, stage 2 ([facility]) 09/22/2022 Assessment: 73 year old female with [...] Aleena Andrea DATE: April 15, 2024 TIME: 07 Pager: [phone] Emergency General Surgery Service Pager: For questions or concerns Mon-Fri 6a-5p please page [phone]. After 5pm and on Weekends and Holidays, please page [phone] if in ICU or [phone] if on RNF. Normal [facility] POTASSIUMon 04-15-2024 Potassium [Moles/Vol] 3.7 mmol/L Normal 3.7-5.1 [facility] Comment on above: Order Comment: Speci men Type: BLOOD SPECIMEN Ordering Facility: [facility] Address: [address] [place] [address] [place] [id number] Performed By: #### C RET1 #### [facility] CLIA [id number] [address] STAPHYLOCOCCUS AUREUS AND MR SA SCREEN, PCR, NASALon 04-15-2024 S. aureus and MRSA panel PENELOPE+probe (Nose) Methicillin-SUSCEPTIB LE Staphylococcus aureus Detected Abnormal Not Detected [facility] Comment on above: Order Comment: Speci men Type: SWAB Ordering Facility: [facility] Address: [address] [place] [address] Performed By: #### S APCR #### [facility] CLIA [id number] [address] [place] THERAPY NTon 04-15-2024 THERAPY NT HNO ID: [id number] Author: JUAN DIEGO WHALEY OTR/L Service: Occupational Therapy Author Type: Occupational Therapist Type: Therapy (PT/OT/Speech/Resp) Filed: 04/15/2024 14:51 Note Text: Occupational Therapy Evaluation Summary SERVICE DATE: 04/15/2024 SERVICE TIME: 1324 to 1355 ROOM: [place] [address] OT 6 Clicks Score: 16 DISCHARGE RECOMMENDATIONS [...] of paraplegia 2/2 Transverse myelitis, [facility] [place] [facility] for 1 week of hip pain with progressive wounds of R hip. 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, CAD, CHF, Depression, intrathecal pump, transverse myelitis HOME LIVING Patient Lives With: Self/Alone Assistance Available: PRN Entry To Home: No Stairs Tub/Shower Type: walk in shower, transfers from w/c to shower bench Laundry: in apartment, pt completes Equipment Owned: Shower Chair, Boom Stick Man, Wheelchair- Manual, Hospital Bed, Wheelchair- Power (slide [...] Time (minutes): 15 $ Evaluation - Moderate (62259) Billed Units: 1 unit TRAINING AND EDUCATION PROVIDED Activity Adaptation/Compensato ry Strategies, Altering Thinking Patterns, Bed Mobility, Benefits of In-Hospital Mobility, Functional Mobility Involving ADLs, Lower Extremity Dressing, Pain Management, Positioning, Precautions/Restricti ons, Role of Occupational Therapy, Safety/Judgment, Sitting Balance to Improve [place] with ADLs/Self-Care, Standing Balance to Improve [place] with ADLs/Self-Care THERAPEUTIC SKILLS USED Activity Dosing, [...] Balance Training, Pain Management SIGNATURE: Juan Diego Whaley OTR/Gasper EISENBERG (more content not included)... Normal [facility] THERAPY NT HNO ID: [id number] Author: JUAN DIEGO GRIJALVA, PT Service: Physical Therapy Author Type: Physical Therapist Type: Therapy (PT/OT/Speech/Resp) Filed: 04/15/2024 14:47 Note Text: Physical Therapy Evaluation Summary SERVICE DATE: 04/15/2024 SERVICE TIME: 1330 to 1359 ROOM: [place] [address] PT 6 Clicks Score: 10 DISCHARGE RECOMMENDATIONS [...] 2/2 Transverse myelitis, presented to [facility] from [place] [facility] for 1 week of hip pain with progressive wounds of R hip. 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, CAD, CHF, Depression, intrathecal pump, transverse myelitis HOME LIVING Patient Lives With: Self/Alone Assistance Available: PRN Entry To Home: No Stairs Tub/Shower Type: walk in shower, transfers from w/c to shower bench Laundry: in apartment, pt completes Equipment Owned: Shower Chair, Boom Stick Man, Wheelchair- Manual, Hospital Bed, Wheelchair- Power (slide board) PRIOR FUNCTIONAL LEVEL Within Functional Limits Pt paralyzed from waist down, pt independent with slide board transfers and ADLs SUBJECTIVE Agreeable to PT session THERAPY DIAGNOSIS Reduced mobility-other TREATMENT INTERVENTIONS Evaluation $ Evaluation-Moderate (86849) Billed Units: 1 unit Skilled Treatment Time [...] April 15, 2024 TIME: 2:45 PM Normal [facility] Vancomycin random [Mass/Vol] on 04-15-2024 Vancomycin [Mass/Vol] 10.8 ug/mL Normal 10.0-20.0 [facility] Comment on above: Order Comment: Speci men Type: BLOOD SPECIMEN Ordering Facility: [facility] Address: [address] [place] [address] Result Comment: Refe rence ranges and high/low indicator flags are provided as general guidelines only. The treating physician must determine appropriate target levels/dosing based on the specific clinical situation. Performed By: #### C RET1 #### [facility] CLIA [id number] [address] [place] [address] [place] Wound Cultureon 04-15-2024 WC Normal [facility] Comment on above: Performed By: #### M 100.4001, M100.2000, M100.3000 ####[facility] [id number] [place], [address] ANES POSTPROC EVALon 024 ANES POSTPROC EVAL HNO ID: [id number] Author: YOSELIN QUIROZ MD Service: Anesthesiology Author Type: Anesthesiologist Type: Anesthesia Postprocedure Evaluation Filed: 04/18/2024 22:09 Note Text: POST ANESTHESIA EVALUATION NOTE : 1950 Procedure Summary Date: 04/14/24 Room / Location: [place] OR / [place] OR Anesthesia Start: 1303 [...] April 18, 2024 TIME: 10:07 PM CSN: [id number] [facility] ANES PRE-OPon 04-14-2024 ANES PRE-OP HNO ID: [id number] Author: YOSELIN QUIROZ MD Service: Anesthesiology Author [...] and consent discussed: yes. Patient / Responsible Constitution Party agrees to proceed: yes Patient / [...] mouth twice daily. WHEELCHAIR MISC STANDING WHEELCHAIR I have interviewed and examined the patient. I have reviewed the medical record and/or the pre-anesthesia evaluation, pertinent labs, and test results. This contains updated information obtained within 48 hours of Surgery/Procedure. SIGNATURE: Yoselin Quiroz MD PATIENT NAME: Aleena Andrea DATE: April 14, 2024 TIME: 12:37 PM CSN: [id number] Normal [facility] CK SerPl-cCncon 04-14-2024 CK [Catalytic activity/Vol] 21 U/L Low 42-196 [facility] Comment on above: Order Comment: Speci men Type: BLOOD SPECIMEN Ordering Facility: [facility] Address: [address] [place] [address] Performed By: #### 5 8410-2 #### [facility] CLIA [id number] [address] [place] [address] [place] CONSULTon 04-14-2024 CONSULT HNO ID: [id number] Author: FRANCISCA SWANSON MD Service: Pain Management [...] CAD, CHF, osteoporosis, depression presented 04/13 from [place] ED for increased right hip pain and progressive wounds. CTAP from [place] showed right sided 8.5x8.3cm subcutaneous abscess extending [...] for SBO. Home pain regimen managed by [place] PM includes intrathecal pump (Dilaudid, baclofen) oxycodone [...] Cancer Father 85 Ischemic Heart Disease Mother [place] ( in 2001) Osteoporosis Mother other (MS) Other none other (Other) Other No breast/urogynaecologist/colon cancer Colon Cancer Sister 62 PAST MEDICAL [...] general symptoms(780.99) (more content not included)... Normal [facility] CONSULT HNO ID: [id number] Author: CASE ERICKSON MD Service: General Surgery Author Type: Resident Type: Consults Filed: 05/15/2024 18:52 Note Text: Attestation signed by Case Erickson MD at 05/15/2024 6:52 PM Attending Note I personally saw and examined the patient. I reviewed the resident's note. I agree with the resident's assessment and plan unless otherwise noted. Signature: Case Erickson MD CONSULT: [facility] Surgery Service SERVICE DATE: 04/14/2024 SERVICE TIME: 4:06 AM REASON FOR CONSULT: Sacral decubitus ulcer Subjective 73 year old female with PMHx of CAD, CHF, depression, hemorrhoids, osteoporosis, constipation, intrathecal pain pump, transverse myelitis causing LE paralysis, s/p lap augmentation cystoplasty with ileoileal catheterizable stoma at the umbilicus for neurogenic bladder. EGS consulted for debridement of right side hip wound. Presented to [facility] for right sided hip pain that has [...] Cancer Father 85 Ischemic Heart Disease Mother [place] ( in 2001) Osteoporosis Mother other (MS) Other none other (Other) Other No breast/urogynaecologist/colon cancer Colon Cancer Sister 62 Social History [...] Septum midlin (more content not included)... Normal [facility] CONSULT PROGon 04-14-2024 CONSULT PROG HNO ID: [id number] Author: FANI ALMODOVAR RPh Service: Pharmacy Author [...] on 04/13 at 1800 per documentation from [facility]. 2. No vancomycin level has been [...] questions, please contact Fani Almodovar PharmD at [phone]. Age: [age] year old Allergies: ALLERGIES Allergen [...] Levels: No results found for: NOVA Almodovar, PharmD, [facility] CONSULT PROG HNO ID: [id number] Author: RK FERNANDEZ APRN.CLOTH BLEACHING RANGE OPERATOR CHIEF Service: Wound/Ostomy Author Type: Nurse Practitioner Type: Consult Progress Note Filed: 04/14/2024 12:25 Note Text: WOUND CARE SERVICE CONSULT [employer] CLE[employer]ER NOTE SERVICE DATE: 04/14/2024 SERVICE TIME: 846 [...] who is seen today with Amina Becerra, Wound/preparole counseling aide, and presented to hospital with complaints of hip pain with wound of right hip. PMH CAD, CHF, migraines, paraplegia. PERTINENT REVIEW OF SYSTEMS: GENERAL: denies fever PAIN ASSESSMENT: denies SKIN: wounds on coccyx, hip, foot RESPIRATORY: denies SOB GI/: denies N/V PAST MEDICAL HISTORY Diagnosis Date Acute gastritis without mention of hemorrhage Anemia, unspecified CAD (coronary artery disease) CHF (congestive heart failure) ([facility]) Chronic pain Depression Dysphagia Internal hemorrhoids without [...] spasticity Respiratory failure ([facility]) Rosacea Transverse myelitis ([facility]) Unspecified cause of encephalitis, myelitis, and encephalomyelitis [...] Cancer Father 85 Ischemic Heart Disease Mother [place] ( in 2001) Osteoporosis Mother other (MS) Other none other (Other) Other No breast/urogynaecologist/colon cancer Colon Cancer Sister 62 MEDICATIONS: Current [...] Pressure Injury Stage Stage 2 Site Assessment [place];Red;Yellow;Sloug angela Leyla-Wound Assessment Blanchable erythema (more content not included)... Normal [facility] CRP SerPl-mCncon 04-14-2024 CRP [Mass/Vol] 2.3 mg/dL High <0.9 [facility] Comment on above: Order Comment: Speci men Type: BLOOD SPECIMEN Ordering Facility: [facility] Address: [address] [place] [address] Performed By: #### 5 8410-2 #### [facility] CLIA [id number] [address] OF [facility] ED NOTEon 04-14-2024 ED NOTE HNO ID: [id number] Author: CASSANDRA LAMB RN Service: Nursing Author Type: Registered Nurse [...] aware and informed Dr. Brenner as well. [facility] ED NOTE HNO ID: [id number] Author: ANAIS LEYVA RN Service: ? Author Type: Registered Nurse Type: ED Notes Filed: 04/14/2024 10:13 Note Text: Patient and sister states that BP is usually 90s systolic and as low at 70s systolic with medications. Patient asymptomatic at this time besides pain Normal [facility] ED NOTE HNO ID: [id number] Author: ANAIS LEYVA RN Service: ? Author Type: Registered Nurse Type: ED Notes Filed: 04/14/2024 09:09 Note Text: Wound care at bedside [facility] ED NOTE HNO ID: [id number] Author: ANAIS LEYVA RN Service: ? Author Type: Registered Nurse Type: ED Notes Filed: 04/14/2024 08:04 Note Text: House resident at bedside [facility] ED NOTE HNO ID: [id number] Author: ANAIS LEYVA RN Service: ? Author Type: Registered Nurse Type: ED Notes Filed: 04/14/2024 07:44 Note Text: Spoke with admitting MD regaurding low BP, awaiting order for additional fluids. Per request by MD, will page is systolic BP drops below 80 systolic Normal [facility] ED NOTE HNO ID: [id number] Author: ANAIS LEYVA RN Service: ? Author Type: Registered Nurse Type: ED Notes Filed: 04/14/2024 07:35 Note Text: Report received from previous RN. Pt on NIBP, SpO2 and property assessment monitor. Side rails up x2, bed low and locked, call light in reach. Patient resting comfortably at this time. BP remains low, patient appears tired but easily awaken and AANDO x3. Admitting team paged about low pressures. Normal [facility] ED NOTE HNO ID: [id number] Author: CLAUDIO MCCLOUD RN Service: ? Author Type: Registered Nurse Type: ED Notes Filed: 04/14/2024 03:15 Note Text: Bed: 17-ED Expected date: Expected time: Means of arrival: Comments: Room 45 Normal [facility] ED PROV NOTEon 04-14-2024 ED PROV NOTE HNO ID: [id number] Author: CANDELARIA ACUNA DO Service: Emergency Medicine [...] Pending surgery consultation Clinical Impressions as of 04/14/2424 Abscess Medical Decision Making General surgery evaluated [...] TIME: 1:38 AM PAGER/CONTACT #: MAXINE BRENNER 04/14/24623 CANDELARIA ACUNA 04/15/24 0859 Normal [facility] ED PROV NOTE HNO ID: [id number] Author: CANDELARIA ACUNA DO Service: Emergency Medicine [...] presents with: Functional Transfers: Pt transferred from [place] by EMS for a wound and plastics consult. Pt has 3 progressive wounds on her right hip. HPI Patient is a 73-year-old female with a history of transverse myelitis, bilateral lower extremity paralysis, and CHF who presents to the ED as a transfer from the [place] emergency department for surgical consultation. The patient states that she was diagnosed with colitis in late March and treated in the [facility]. She was then discharged to inpatient rehab but was found to have multiple sacral pressure ulcers while at rehab. She then began seeing wound care at [facility]. When she went in for wound care today she was told to go to the [place] ED due to concern that her sacral ulcers were infected. At the [place] emergency department a CT abdomen pelvis was performed which displayed large right sided subcutaneous abscess extending into the right ischial rectal fossa along with extensive soft tissue edema/cellulitis. She denies any fevers,chills, abdominal pain, nausea, or vomiting. PAST MEDICAL HISTORY Diagnosis Date Acute gastritis without mention of hemorrhage Anemia, unspecified CAD (coronary artery disease) CHF (congestive heart failure) ([facility]) Chronic pain Depression Dysphagia Internal hemorrhoids without [...] spasticity Respiratory failure (HCC) Rosacea Transverse myelitis ([facility]) Unspecified cause of encephalitis, myelitis, and encephalomyelitis [...] Cancer Father 85 Ischemic Heart Disease Mother [place] ( in 2001) Osteoporosis Mother other (MS) Other none other (Other) Other No breast/urogynaecologist/colon cancer Colon Cancer Sister 62 Social History [...] for light-headedness and headaches. Physical Exam Vitals [04/13/249] BP Pulse Temp Temp src Resp SpO2 Weight Height 100/53 79 37 ?C (98.6 ?F) Oral (!) 11 96 % 44.5 kg (98 lb) 1.549 m (5' 1) Physical (more content not included)... Normal [facility] ESR Westergren method (Bld) [Velocity]on 04-14-2024 ESR (Bld) [Velocity] 44 mm/h High 0-20 [facility] Comment on above: Order Comment: Speci men Type: BLOOD SPECIMEN Ordering Facility: [facility] Address: [address] [place] [address] Performed By: #### 5 8410-2 #### [facility] CLIA [id number] [address] [place] [address] [place] Gram Stainon 04-14-2024 GS RIGHT Gram Stain Rare Gram positive cocci 2+ Red Blood Cells No Epithelial cells Normal [facility] Comment on above: Performed By: #### M 100.4001, M100.2000, M100.3000 ####[facility] [id number] [place], [address] HISTORY PHYSICALon HISTORY PHYSICAL HNO ID: [id number] Author: CASE PHAN MD Service: Hospital Medicine Author Type: Resident Type: H&P Filed: 04/14/2024 21:16 Note Text: Attestation signed by Case Phan MD at 04/14/2024 9:16 PM [facility] ATTENDING ATTESTATION: I saw and evaluated the patient on rounds on 04/14/24. Discussed case with the medicine team and agree with resident's findings and plan as documented in the resident's note. I spent a total of >75 minutes on the date of the service which included preparing to see the patient, [id number] patient care, completing clinical documentation, obtaining and/or reviewing separately obtained history, and performing a medically appropriate examination. See additional comments of progress notes on 04/14/2024. Case Phan MD [facility] PATIENT NAME: Aleena Andrea ADMITTED FOR: DATE: [...] amitriptyline, trazodone, tizanidine, naproxen Patient presented to [facility] from [place] ED by EMS for hip pain for 1 week with progressive wounds on R hip. CTAP from [place] showed right sided 8.5x8.3cm subcutaneous abscess extending [...] OF transverse mylitis pos. spasticity Respiratory failure ([facility]) Rosacea Transverse myelitis ([facility]) Unspecified cause of encephalitis, myelitis, and encephalomyelitis [...] Cancer Father 85 Ischemic Heart Disease Mother [place] ( in 2001) Osteoporosis Mother other (MS) Other none other (Other) Other No breast/urogynaecologist/colon cancer Colon Cancer Sister 62 Social History [...] tablets by (more content not included)... Normal [facility] HbA1c (Bld)on 04-14-2024 Average glucose Estimated from glycated hemoglobin (Bld) [Mass/Vol] 82 mg/dL Normal [facility] Comment on above: Order Comment: Shayy weiss Type: BLOOD SPECIMEN Ordering Facility: [facility] Address: [address] [place] [address] Result Comment: eAG: (Estimated average glucose) is a calculated value from HgbA1c and is bilingual sales representative of the average blood glucose level in the last 2-3 month period. Performed By: #### 5 8410-2 #### [facility] CLIA [id number] [address] [place] [address] [place] HbA1c (Bld) [Mass fraction] 4.5 % Normal 4.3-5.6 [facility] Comment on above: Order Comment: Shayy weiss Type: BLOOD SPECIMEN Ordering Facility: [facility] Address: [address] [place] [address] Result Comment: Amer [place] Diabetes Association guidelines indicate that patients with HgbA1c in the range 5.7-6.4% are at increased risk for development of diabetes, and intervention by lifestyle modification may be beneficial. HgbA1c greater or equal to 6.5% is considered diagnostic of diabetes. Performed By: #### 5 8410-2 #### [facility] CLIA [id number] [address] OF [facility] LIPID PANEL, NONFASTINGon Cholesterol [Mass/Vol] 89 mg/dL Normal <200 [facility] Comment on above: Order Comment: Shayy weiss Type: BLOOD SPECIMEN Ordering Facility: [facility] Address: [address] [place] [address] Result Comment: <200 mg/dL, Desirable 200-239 mg/dL, Borderline high >239 mg/dL, High Performed By: #### 5 8410-2 #### [facility] [facility] CLIA [id number] [address] STATES OF [facility] HDL CHOLESTEROL, NF 29 mg/dL Low >39 [facility] Comment on above: Order Comment: Shayy weiss Type: BLOOD SPECIMEN Ordering Facility: [facility] Address: [address] [place] [address] Result Comment: 40-5 9 mg/dL, Acceptable >59 mg/dL, High: Negative risk factor for coronary heart disease <40 mg/dL, Low: Positive risk factor for coronary heart disease Performed By: #### 5 8410-2 #### [facility] CLIA [id number] [address] OF [facility] LDL CHOLESTEROL, NF 51 mg/dL Normal <100 [facility] Comment on above: Order Comment: Shayy weiss Type: BLOOD SPECIMEN Ordering Facility: [facility] Address: [address] [place] [address] Result Comment: <100 mg/dL, Optimal 100-129 mg/dL, Near optimal/above optimal 130-159 mg/dL, Borderline high 160-189 mg/dL, High >189 mg/dL, Very high Secondary prevention optimal LDL Cholesterol levels are recommended to be < 70 mg/dL Performed By: #### 5 8410-2 #### [facility] CLIA [id number] [address] LDL/HDL RATIO, NF 1.76 mg/dL Normal <2.54 [facility] Comment on above: Order Comment: Shayy weiss Type: BLOOD SPECIMEN Ordering Facility: [facility] Address: [address] [place] [address] Result Comment: Refe rence: 1. National Cholesterol Education Program ATP III Guideline At-A-Glance Quick Desk Reference: National Heart, Lung, and Blood [place]. National Institutes of Health. 2001: NIH Publication No. 01-3305. 2. An International Atherosclerosis Society position paper: global recommendations for the management of dyslipidemia: executive summary, Atherosclerosis. 2014: 232(2):410-413. Performed By: #### 5 8410-2 #### [facility] CLIA [id number] [address] NON HDL CHOL, NF 60 mg/dL Normal <130 [facility] Comment on above: Order Comment: Shayy weiss Type: BLOOD SPECIMEN Ordering Facility: [facility] Address: [address] [place] [address] Result Comment: <130 mg/dL, Optimal 130-159 mg/dL, Near optimal/above optimal 160-189 mg/dL, Borderline high 190-219 mg/dL, High >219 mg/dL, Very high Secondary prevention optimal non HDL Cholesterol levels are recommended to be <100 mg/dL Performed By: #### 5 8410-2 #### [facility] CLIA [id number] [address] T CHOL/HDL RATIO NF 3.07 mg/dL Normal <5.10 [facility] Comment on above: Order Comment: Shayy abhishek Type: BLOOD SPECIMEN Ordering Facility: [facility] Address: [address] [place] [address] Performed By: #### 5 8410-2 #### [facility] CLIA [id number] [address] TRIGLYCERIDES, NF 47 mg/dL Normal <150 [facility] Comment on above: Order Comment: Specantony weiss Type: BLOOD SPECIMEN Ordering Facility: [facility] Address: [address] [place] [address] Result Comment: <150 mg/dL, Normal 150-199 mg/dL, Borderline high 200-499 mg/dL, High >499 mg/dL, Very high Performed By: #### 5 8410-2 #### [facility] CLIA [id number] [address] OF [facility] VLDL CHOLESTEROL, NF 9 mg/dL Normal <30 [facility] Comment on above: Order Comment: Specantony abhishek Type: BLOOD SPECIMEN Ordering Facility: [facility] Address: [address] [place] [address] Performed By: #### 5 8410-2 #### [facility] CLIA [id number] [address] NURSING PROGon 04-14-2024 NURSING PROG HNO ID: [id number] Author: ABDIAZIZ CONDE RN Service: Nursing Author [...] note was completed by: Abdiaziz Conde RN [facility] OPERATIVE NOon 04-14-2024 OPERATIVE NO HNO ID: [id number] Author: CASE ERICKSON MD Service: General Surgery Author Type: Resident Type: Operative Report Filed: 04/30/2024 16:14 Note Text: Attestation signed by Case Erickson MD at 04/30/2024 4:14 PM Attestation: I was present for the critical and alvarez portions of the surgery and I was immediately available to provide assistance. Case Erickson MD OPERATIVE/PROCEDURE REPORT LOG ID: [id number] Surgery/Procedure Date: 04/14/2024 Incision/Procedure Start Time: 1:18 PM Incision Close/Procedure End Time: 1:36 PM Surgeon(s)/Procedural ist(s) and [employer] Gun[employer] Observer(s): Surgeons and Role: * Case Erickson MD [...] TIME: 2:28 PM PAGER/CONTACT #: [phone] Normal [facility] Urinalysis complete panel (U )on 04-14-2024 Bilirubin Ql (U) Negative Normal Negative [facility] Comment on above: Order Comment: Speci men Type: BLOOD SPECIMEN Ordering Facility: [facility] Address: [address] [place] [address] Performed By: #### 5 8410-2 #### [facility] CLIA [id number] [address] STATES OF [place] Clarity (Unsp spec) Clear Normal Clear [facility] Comment on above: Order Comment: Speci men Type: BLOOD SPECIMEN Ordering Facility: [facility] Address: [address] [place] [address] Performed By: #### 5 8410-2 #### [facility] CLIA [id number] [address] [place] [address] [place] Color (U) Light Yellow Normal yellow [facility] Comment on above: Order Comment: Speci men Type: BLOOD SPECIMEN Ordering Facility: [facility] Address: [facility] [place] [address] Performed By: #### 5 8410-2 #### [facility] CLIA [id number] [address] [place] Glucose Test strip (U) [Mass/Vol] Negative Normal Trace, Negative [facility] Comment on above: Order Comment: Speci men Type: BLOOD SPECIMEN Ordering Facility: [facility] Address: [address] [place] [address] Performed By: #### 5 8410-2 #### [facility] CLIA [id number] [address] [place] Hemoglobin Ql (U) Negative Normal Negative, Trace [facility] Comment on above: Order Comment: Speci men Type: BLOOD SPECIMEN Ordering Facility: [facility] Address: [address] [place] [address] Performed By: #### 5 8410-2 #### [facility] CLIA [id number] [address] Ketones Ql (U) Negative Normal Negative, Trace [facility] Comment on above: Order Comment: Speci men Type: BLOOD SPECIMEN Ordering Facility: [facility] Address: [address] [place] [address] Performed By: #### 5 8410-2 #### [facility] CLIA [id number] [address] OF [facility] Leukocyte esterase Test strip Ql (U) Negative Normal Negative, 25 Ivania/uL [facility] Comment on above: Order Comment: Speci men Type: BLOOD SPECIMEN Ordering Facility: [facility] Address: [address] [place] [address] Performed By: #### 5 8410-2 #### [facility] CLIA [id number] [address] [place] Nitrite Ql (U) Negative Normal Negative [facility] Comment on above: Order Comment: Speci men Type: BLOOD SPECIMEN Ordering Facility: [facility] Address: [address] [place] [address] Performed By: #### 5 8410-2 #### [facility] CLIA [id number] [address] OF [facility] pH (U) 7.0 [pH] Normal 5.0-8.0 [facility] Comment on above: Order Comment: Speci men Type: BLOOD SPECIMEN Ordering Facility: [facility] Address: [address] [place] [address] Performed By: #### 5 8410-2 #### [facility] CLIA [id number] [address] Protein (U) [Mass/Vol] Negative Normal Trace , Negative [facility] Comment on above: Order Comment: Speci men Type: BLOOD SPECIMEN Ordering Facility: [facility] Address: [address] [place] [address] Performed By: #### 5 8410-2 #### [facility] CLIA [id number] [address] RBC LM.HPF (Urine sed) [#/Area] 3-5 /HPF Abnormal 0-3 /HPF [facility] Comment on above: Order Comment: Speci men Type: BLOOD SPECIMEN Ordering Facility: [facility] Address: [address] [place] [address] Performed By: #### 5 8410-2 #### [facility] CLIA [id number] [address] Specific gravity (U) [Rel density] 1.015 Normal 1.005-1.030 [facility] Comment on above: Order Comment: Speci men Type: BLOOD SPECIMEN Ordering Facility: [facility] Address: [address] [place] [address] Performed By: #### 5 8410-2 #### [facility] CLIA [id number] [address] Urobilinogen Ql (U) Normal Normal Normal [facility] Comment on above: Order Comment: Speci men Type: BLOOD SPECIMEN Ordering Facility: [facility] Address: [address] [place] [address] Performed By: #### 5 8410-2 #### [facility] CLIA [id number] [address] WBC LM.HPF (Urine sed) [#/Area] 0-5 /HPF Normal 0-5 /HPF [facility] Comment on above: Order Comment: Speci men Type: BLOOD SPECIMEN Ordering Facility: [facility] Address: [address] [place] [address] Performed By: #### 5 8410-2 #### [facility] CLIA [id number] [address] STATES OF [facility] Bacteria Bld Culton 04-13-20 24 Bacteria identified Cx Nom (Bld) CULTURE, BLOOD: No growth 5 days Normal [facility] Comment on above: Performed By: #### 6 00-7 #### [facility] CLIA [id number] [address] Bacteria identified Cx Nom (Bld) ORGANISM ID: 1 Culture report of Staphylococcus hominis Probable contaminant. Susceptibility testing will not be performed. Call lab within 72 hours to initiate workup if clinically indicated. GRAM STAIN: Gram positive cocci in clusters Abnormal [facility] Comment on above: Performed By: #### I DBCGP, 600-7 ####[facility] [id number] [address] OF [facility] Basic Metabolic Profile (BMP )on 04-13-2024 BUN/CRE 22.4 RATIO High 10-20 [facility] Comment on above: Performed By: #### L 501.6710, L101.9900, L100.0100, L500.2500 ####[facility] [address] [place], [address] CA,Total 8.0 mg/dL Low 8.5-10.1 [facility] Comment on above: Performed By: #### L 501.6710, L101.9900, L100.0100, L500.2500 ####[facility] [address] [place], [address] Chloride [Moles/Vol] 98 mmol/L Normal 98-107 [facility] Comment on above: Performed By: #### L 501.6710, L101.9900, L100.0100, L500.2500 ####[facility] [address] [place], [address] CO2 [Moles/Vol] 30.0 mmol/L Normal 21.0-32.0 [facility] Comment on above: Performed By: #### L 501.6710, L101.9900, L100.0100, L500.2500 ####[facility] [address] [place], [address] Creatinine [Mass/Vol] 0.40 mg/dL Low 0.55-1.02 [facility] Comment on above: Result Comment: The validity of the calculated GFR GFRAA in patients over70 years has not been determined. Clinical correlation isessential. Performed By: #### L 501.6710, L101.9900, L100.0100, L500.2500 ####[facility] [address] [place], [address] ECRCL 50.27 ml/min Normal [facility] Comment on above: Performed By: #### L 501.6710, L101.9900, L100.0100, L500.2500 ####[facility] [address] [place], [address] EST GFR - AA 200 mL/min Normal >60 [facility] Comment on above: Result Comment: Afri can Qatari GFR Calc Performed By: #### L 501.6710, L101.9900, L100.0100, L500.2500 ####[facility] [address] [place], [address] GAP 2 Low 5-15 [facility] Comment on above: Performed By: #### L 501.6710, L101.9900, L100.0100, L500.2500 ####[facility] [address] [place], [address] GFR/1.73 sq M.predicted among non-blacks MDRD (S/P/Bld) [Vol rate/Area] 165 mL/min/{1.73_m2} Normal >60 [facility] Comment on above: Result Comment: Non- GFR Calc Performed By: #### L 501.6710, L101.9900, L100.0100, L500.2500 ####[facility] [address] [place], [address] Glucose [Mass/Vol] 126 mg/dL High 74-106 [facility] Comment on above: Result Comment: Fast ing Glucose result greater than or equal to 126 mg/dLsuggests DIABETES MELLITUS per A.D.A. criteria. Performed By: #### L 501.6710, L101.9900, L100.0100, L500.2500 ####[facility] [address] [place], [address] Potassium [Moles/Vol] 4.1 mmol/L Normal 3.5-5.1 [facility] Comment on above: Performed By: #### L 501.6710, L101.9900, L100.0100, L500.2500 ####[facility] [address] [place], [address] Sodium [Moles/Vol] 130 mmol/L Low 136-145 [facility] Comment on above: Performed By: #### L 501.6710, L101.9900, L100.0100, L500.2500 ####[facility] [address] [place], [address] Urea nitrogen [Mass/Vol] 9 mg/dL Normal 7-18 [facility] Comment on above: Performed By: #### L 501.6710, L101.9900, L100.0100, L500.2500 ####[facility] [address] [place], [address] CBC W Auto Differential pane l (Bld)on 04-13-2024 Basophils (Bld) [#/Vol] 0.09 10*3/uL Normal <0.11 [facility] Comment on above: Order Comment: Speci men Type: BLOOD SPECIMEN Ordering Facility: [facility] Address: [address] [place] [address] Performed By: #### 5 7021-8 #### [facility] CLIA [id number] [address] STATES [place] Basophils/100 WBC (Bld) 0.8 % Normal [facility] Comment on above: Order Comment: Speci men Type: BLOOD SPECIMEN Ordering Facility: [facility] Address: [address] [place] [address] Performed By: #### 5 7021-8 #### [facility] CLIA [id number] [address] Differential cell count method Nom (Bld) Auto Normal [facility] Comment on above: Order Comment: Speci men Type: BLOOD SPECIMEN Ordering Facility: [facility] Address: [address] [place] [address] Performed By: #### 5 7021-8 #### [facility] CLIA [id number] [address] [place] Eosinophils (Bld) [#/Vol] 0.11 10*3/uL Normal <0.46 [facility] Comment on above: Order Comment: Speci men Type: BLOOD SPECIMEN Ordering Facility: [facility] Address: [address] [place] [address] Performed By: #### 5 7021-8 #### [facility] CLIA [id number] [address] Eosinophils/100 WBC (Bld) 1.0 % Normal [facility] Comment on above: Order Comment: Speci men Type: BLOOD SPECIMEN Ordering Facility: [facility] Address: [address] [place] [address] Performed By: #### 5 7021-8 #### [facility] CLIA [id number] [address] [place] Erythrocyte distribution width (RBC) [Ratio] 15.8 % High 11.5-15.0 [facility] Comment on above: Order Comment: Speci men Type: BLOOD SPECIMEN Ordering Facility: [facility] Address: [address] [place] [address] Performed By: #### 5 7021-8 #### [facility] CLIA [id number] [address] [place] Hematocrit (Bld) [Volume fraction] 28.1 % Low 36.0-46.0 [facility] Comment on above: Order Comment: Speci men Type: BLOOD SPECIMEN Ordering Facility: [facility] Address: [address] [place] [address] Performed By: #### 5 7021-8 #### [facility] CLIA [id number] [address] [place] Hemoglobin (Bld) [Mass/Vol] 9.0 g/dL Low 11.5-15.5 [facility] Comment on above: Order Comment: Speci men Type: BLOOD SPECIMEN Ordering Facility: [facility] Address: [address] [place] [address] Performed By: #### 5 7021-8 #### [facility] CLIA [id number] [address] OF [place] Immature granulocytes (Bld) [#/Vol] 0.24 10*3/uL High <0.10 [facility] Comment on above: Order Comment: Speci men Type: BLOOD SPECIMEN Ordering Facility: [facility] Address: [address] [place] [address] Performed By: #### 5 7021-8 #### [facility] CLIA [id number] [address] OF [place] Immature granulocytes/100 WBC (Bld) 2.1 % Normal [facility] Comment on above: Order Comment: Speci men Type: BLOOD SPECIMEN Ordering Facility: [facility] Address: [address] [place] [address] Performed By: #### 5 7021-8 #### [facility] CLIA [id number] [address] OF [place] Lymphocytes (Bld) [#/Vol] 1.16 10*3/uL Normal 1.00-4.0 0 [facility] Comment on above: Order Comment: Speci men Type: BLOOD SPECIMEN Ordering Facility: [facility] Address: [address] [place] [address] Performed By: #### 5 7021-8 #### [facility] CLIA [id number] [address] Lymphocytes/100 WBC (Bld) 10.0 % Normal [facility] Comment on above: Order Comment: Speci men Type: BLOOD SPECIMEN Ordering Facility: [facility] Address: [address] [place] [address] Performed By: #### 5 7021-8 #### [facility] CLIA [id number] [address] MCH (RBC) [Entitic mass] 32.5 pg Normal 26.0-34.0 [facility] Comment on above: Order Comment: Speci men Type: BLOOD SPECIMEN Ordering Facility: [facility] Address: [address] [place] [address] Performed By: #### 5 7021-8 #### [facility] CLIA [id number] [address] MCHC (RBC) [Mass/Vol] 32.0 g/dL Normal 30.5-36.0 [facility] Comment on above: Order Comment: Speci men Type: BLOOD SPECIMEN Ordering Facility: [facility] Address: [address] [place] [address] Performed By: #### 5 7021-8 #### [facility] CLIA [id number] [address] MCV (RBC) [Entitic vol] 101.4 fL High 80.0-100.0 [facility] Comment on above: Order Comment: Speci men Type: BLOOD SPECIMEN Ordering Facility: [facility] Address: [address] [place] [address] Performed By: #### 5 7021-8 #### [facility] CLIA [id number] [address] [place] Monocytes (Bld) [#/Vol] 0.69 10*3/uL Normal <0.87 [facility] Comment on above: Order Comment: Speci men Type: BLOOD SPECIMEN Ordering Facility: [facility] Address: [address] [place] [address] Performed By: #### 5 7021-8 #### [facility] CLIA [id number] [address] [place] Monocytes/100 WBC (Bld) 6.0 % Normal [facility] Comment on above: Order Comment: Speci men Type: BLOOD SPECIMEN Ordering Facility: [facility] Address: [address] [place] [address] Performed By: #### 5 7021-8 #### [facility] CLIA [id number] [address] [place] Neutrophils (Bld) [#/Vol] 9.28 10*3/uL High 1.45-7.5 0 [facility] Comment on above: Order Comment: Speci men Type: BLOOD SPECIMEN Ordering Facility: [facility] Address: [address] [place] [address] Performed By: #### 5 7021-8 #### [facility] CLIA [id number] [address] [place] Neutrophils/100 WBC (Bld) 80.1 % Normal [facility] Comment on above: Order Comment: Speci men Type: BLOOD SPECIMEN Ordering Facility: [facility] Address: [address] [place] [address] Performed By: #### 5 7021-8 #### [facility] CLIA [id number] [address] [place] Nucleated RBC (Bld) [#/Vol] 10*3/uL Normal <0.01 [facility] Comment on above: Order Comment: Speci men Type: BLOOD SPECIMEN Ordering Facility: [facility] Address: [address] [place], [place] [address] Performed By: #### 5 7021-8 #### [facility] CLIA [id number] [address] [place] Nucleated RBC/100 WBC (Bld) [Ratio] 0.0 /100 WBC Normal [facility] Comment on above: Order Comment: Speci men Type: BLOOD SPECIMEN Ordering Facility: [facility] Address: [address] [place] [address] Performed By: #### 5 7021-8 #### [facility] CLIA [id number] [address] [place] Platelet mean volume (Bld) [Entitic vol] 9.0 fL Normal 9.0-12.7 [facility] Comment on above: Order Comment: Speci men Type: BLOOD SPECIMEN Ordering Facility: [facility] Address: [facility] [place] [address] Performed By: #### 5 7021-8 #### [facility] CLIA [id number] [address] [place] Platelets (Bld) [#/Vol] 617 10*3/uL High 150-400 [facility] Comment on above: Order Comment: Speci men Type: BLOOD SPECIMEN Ordering Facility: [facility] Address: [address] [place] [address] Performed By: #### 5 7021-8 #### [facility] CLIA [id number] [address] [place] RBC (Bld) [#/Vol] 2.77 10*6/uL Low 3.90-5.20 [facility] Comment on above: Order Comment: Speci men Type: BLOOD SPECIMEN Ordering Facility: [facility] Address: [address] [place] [address] Performed By: #### 5 7021-8 #### [facility] CLIA [id number] [address] [place] WBC (Bld) [#/Vol] 11.57 10*3/uL High 3.70-11.00 [facility] Comment on above: Order Comment: Speci men Type: BLOOD SPECIMEN Ordering Facility: [facility] Address: [address], [place] [address] Performed By: #### 5 7021-8 #### [facility] CLIA [id number] [address] [place] [address] [place] CBC W/Diff, Automatedon 12- Absolute Lymph 0.56 X10 3/uL Low 0.83-4.51 [facility] Comment on above: Performed By: #### L 501.6710, L101.9900, L100.0100, L500.2500 ####[facility] [address] [place], [address] Absolute Neut 10.1 X10 3/uL High 2.0-7.7 [facility] Comment on above: Performed By: #### L 501.6710, L101.9900, L100.0100, L500.2500 ####[facility] [address] [place], [address] Basophils/100 WBC (Bld) 0.6 % Normal 0-1 [facility] Comment on above: Performed By: #### L 501.6710, L101.9900, L100.0100, L500.2500 ####[facility] [address] [place], [address] Eosinophils/100 WBC (Bld) 0.4 % Normal 0-5 [facility] Comment on above: Performed By: #### L 501.6710, L101.9900, L100.0100, L500.2500 ####[facility] [address] [place], [address] Erythrocyte distribution width (RBC) [Ratio] 15.8 % High 11.6-14.6 [facility] Comment on above: Performed By: #### L 501.6710, L101.9900, L100.0100, L500.2500 ####[facility] [address] [place], [address] Hematocrit (Bld) [Volume fraction] 26.6 % Low 37-47 [facility] Comment on above: Performed By: #### L 501.6710, L101.9900, L100.0100, L500.2500 ####[facility] [address] [place], [address] Hemoglobin (Bld) [Mass/Vol] 8.6 g/dL Low 12.0-15.0 [facility] Comment on above: Performed By: #### L 501.6710, L101.9900, L100.0100, L500.2500 ####[facility] [address] [place], [address] IG% 1.700 High 0.0-0.9 [facility] Comment on above: Result Comment: IG% - Immature Granulocytes (promyelocytes, myelocytes andmetamyelocytes) > 1% indicates that a LEFT SHIFT is Present. Performed By: #### L 501.6710, L101.9900, L100.0100, L500.2500 ####[facility] [address] [place], [address] Lymphocytes/100 WBC (Bld) 4.7 % Low 19-41 [facility] Comment on above: Performed By: #### L 501.6710, L101.9900, L100.0100, L500.2500 ####[facility] [address] [place], [address] MCH (RBC) [Entitic mass] 31.9 pg Normal 27.0-32.0 [facility] Comment on above: Performed By: #### L 501.6710, L101.9900, L100.0100, L500.2500 ####[facility] [address] [place], [address] MCHC (RBC) [Mass/Vol] 32.3 g/dL Normal 32-36 [facility] Comment on above: Performed By: #### L 501.6710, L101.9900, L100.0100, L500.2500 ####[facility] [address] [place], [address] MCV (RBC) [Entitic vol] 98.5 fL Normal 81-99 [facility] Comment on above: Performed By: #### L 501.6710, L101.9900, L100.0100, L500.2500 ####[facility] [address] [place], [address] Monocytes/100 WBC (Bld) 8.0 % Normal 0-10 [facility] Comment on above: Performed By: #### L 501.6710, L101.9900, L100.0100, L500.2500 ####[facility] [address] [place], [address] Neutrophils/100 WBC (Bld) 84.6 % High 47-70 [facility] Comment on above: Performed By: #### L 501.6710, L101.9900, L100.0100, L500.2500 ####[facility] [address] [place], [address] Nucleated RBC (Bld) [#/Vol] 0 10*3/uL Normal 0-5 [facility] Comment on above: Performed By: #### L 501.6710, L101.9900, L100.0100, L500.2500 ####[facility] [address] [place], [address] Platelet mean volume (Bld) [Entitic vol] 9.2 fL Normal 6.2-12.0 [facility] Comment on above: Performed By: #### L 501.6710, L101.9900, L100.0100, L500.2500 ####[facility] [address] [place], [address] Platelets (Bld) [#/Vol] 617 10*3/uL High 150-450 [facility] Comment on above: Performed By: #### L 501.6710, L101.9900, L100.0100, L500.2500 ####[facility] [address] [place], [address] RBC (Bld) [#/Vol] 2.70 10*6/uL Low 4.2-5.4 [facility] Comment on above: Performed By: #### L 501.6710, L101.9900, L100.0100, L500.2500 ####[facility] [address] [place], [address] RDW SD 55.7 fl High 35.1-43.9 [facility] Comment on above: Performed By: #### L 501.6710, L101.9900, L100.0100, L500.2500 ####[facility] [address] [place], [address] WBC (Bld) [#/Vol] 11.9 10*3/uL High 4.4-11.0 [facility] Comment on above: Performed By: #### L 501.6710, L101.9900, L100.0100, L500.2500 ####[facility] [address] [place], [address] CRPon 04-13-2024 C-REACTIVE PROT 24.90 mg/L High 0.0-3.0 [facility] Comment on above: Result Comment: C-Re active Protein (CRP) provides useful information for thediagnosis, therapy and monitoring of inflammatory processesand associated diseases. For the evaluation of Relative Riskfor Cardiovascular Disease, a High Sensitivity CRP (HSCRP)should be ordered. Performed By: #### L 501.6710, L101.9900, L100.0100, L500.2500 ####[facility] [address] [place], [address] Comprehensive metabolic 2000 panelon 04-13-2024 Albumin [Mass/Vol] 2.7 g/dL Low 3.9-4.9 [facility] Comment on above: Order Comment: Speci men Type: BLOOD SPECIMEN Ordering Facility: [facility] Address: [address] [place] [address] Performed By: #### C RET1 #### [facility] CLIA [id number] [address] [place] ALP [Catalytic activity/Vol] 84 U/L Normal 34-123 [facility] Comment on above: Order Comment: Speci men Type: BLOOD SPECIMEN Ordering Facility: [facility] Address: [address] [place] [address] Performed By: #### C RET1 #### [facility] CLIA [id number] [address] [place] ALT With P-5'-P [Catalytic activity/Vol] 9 U/L Normal 7-38 [facility] Comment on above: Order Comment: Speci men Type: BLOOD SPECIMEN Ordering Facility: [facility] Address: [address] [place] [address] Performed By: #### C RET1 #### [facility] CLIA [id number] [address] [place] Anion gap [Moles/Vol] 8 mmol/L Normal 8-15 [facility] Comment on above: Order Comment: Speci men Type: BLOOD SPECIMEN Ordering Facility: [facility] Address: [address] [place] [address] Performed By: #### C RET1 #### [facility] CLIA [id number] [address] [place] AST With P-5'-P [Catalytic activity/Vol] 16 U/L Normal 13-35 [facility] Comment on above: Order Comment: Speci men Type: BLOOD SPECIMEN Ordering Facility: [facility] Address: [address] [place] [address] Performed By: #### C RET1 #### [facility] CLIA [id number] [address] [place] Bilirubin [Mass/Vol] 0.2 mg/dL Normal 0.2-1.3 [facility] Comment on above: Order Comment: Speci men Type: BLOOD SPECIMEN Ordering Facility: [facility] Address: [address] [place] [address] Performed By: #### C RET1 #### [facility] CLIA [id number] 1 [place] [address] [place] Calcium [Mass/Vol] 8.2 mg/dL Low 8.5-10.2 [facility] Comment on above: Order Comment: Speci men Type: BLOOD SPECIMEN Ordering Facility: [facility] Address: [address] [place] [address] Performed By: #### C RET1 #### [facility] CLIA [id number] [address] [place] Chloride [Moles/Vol] 95 mmol/L Low 98-107 [facility] Comment on above: Order Comment: Speci men Type: BLOOD SPECIMEN Ordering Facility: [facility] Address: [address] [place] [address] Performed By: #### C RET1 #### [facility] CLIA [id number] [address] [place] CO2 [Moles/Vol] 28 mmol/L Normal 22-30 [facility] Comment on above: Order Comment: Speci men Type: BLOOD SPECIMEN Ordering Facility: [facility] Address: [address] [place] [address] Performed By: #### C RET1 #### [facility] CLIA [id number] [address] [place] Creatinine [Mass/Vol] 0.36 mg/dL Low 0.58-0.96 [facility] Comment on above: Order Comment: Speci men Type: BLOOD SPECIMEN Ordering Facility: [facility] Address: [address] [place] [address] Performed By: #### C RET1 #### [facility] CLIA [id number] [address] OF [facility] Creatinine and Glomerular filtration rate.predicted panel (S/P/Bld) 108 mL/min/1.73m??? Normal >=60 [facility] Comment on above: Order Comment: Specantony abhishek Type: BLOOD SPECIMEN Ordering Facility: [facility] Address: [address] [place] [address] Result Comment: Kristina mated Glomerular Filtration Rate [...] #### C RET1 #### [facility] CLIA [id number] 1 [place] [address] [place] Glucose [Mass/Vol] 86 mg/dL Normal 74-99 [facility] Comment on above: Order Comment: Speci men Type: BLOOD SPECIMEN Ordering Facility: [facility] Address: [address] [place] [address] Result Comment: The [place] [employer] (ADA) provides guidance for cutoff [...] Standards of Medical Care in Diabetes 2016, [place] [employer]. Diabetes Care. 2016.39(Suppl 1). Performed By: #### C RET1 #### [facility] CLIA [id number] 1 [place] [address] [place] Potassium [Moles/Vol] 3.7 mmol/L Normal 3.7-5.1 [facility] Comment on above: Order Comment: Speci men Type: BLOOD SPECIMEN Ordering Facility: [facility] Address: [address] [place] [address] Performed By: #### C RET1 #### [facility] CLIA [id number] [address] [place] Protein [Mass/Vol] 6.5 g/dL Normal 6.3-8.0 [facility] Comment on above: Order Comment: Speci men Type: BLOOD SPECIMEN Ordering Facility: [facility] Address: [address] [place] [address] Performed By: #### C RET1 #### [facility] CLIA [id number] [address] [place] Sodium [Moles/Vol] 131 mmol/L Low 136-144 [facility] Comment on above: Order Comment: Speci men Type: BLOOD SPECIMEN Ordering Facility: [facility] Address: [address] [place] [address] Performed By: #### C RET1 #### [facility] CLIA [id number] [address] [place] Urea nitrogen [Mass/Vol] 6 mg/dL Low 7-21 [facility] Comment on above: Order Comment: Speci men Type: BLOOD SPECIMEN Ordering Facility: [facility] Address: [address] [place] [address] Performed By: #### C RET1 #### [facility] CLIA [id number] [address] [place] [address] [place] ED NOTEon 04-13-2024 ED NOTE HNO ID: [id number] Author: CASSANDRA LAMB RN Service: Nursing Author Type: Registered Nurse Type: ED Notes Filed: 04/13/2024 22:06 Note Text: Pt is asking about her trazadone and clonidine for this evening. Normal [facility] ED NOTE HNO ID: [id number] Author: CASSANDRA LAMB RN Service: Nursing Author Type: Registered Nurse Type: ED Notes Filed: 04/13/2024 22:04 Note Text: Pt placed on property assessment monitor, bp cuff and pulse ox attached. Pt is aANDox3. 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 Pt is aANDox3. Pt is paralyzed from the waste down d/t transverse myelitis Normal [facility] ED NOTE HNO ID: [id number] Author: CLAUDIO MCCLOUD, EFE Service: ? Author Type: Registered Nurse Type: ED Notes Filed: 04/13/2024 21:57 Note Text: Bed: 45-ED Expected date: Expected time: Means of arrival: Comments: [place] transfer Normal [facility] Emergency Department Summary on 04-13-2024 Emergency Department Summary Normal [facility] Erythrocyte Sed Rateon 04-13 SED RATE 40 mm/hr High 0-30 [facility] Comment on above: Performed By: #### L 501.6710, L101.9900, L100.0100, L500.2500 ####[facility] [address] [place], [address] GRAM POSITIVE ORGANISM ID BY MICROARRAY (GetMyBoat)on 04-13-2024 GRAM POSITIVE ORGANISM ID BY MICROARRAY (GetMyBoat) BCID INTERPRETATION: Coagulase negative staphylococci (CoNS, not S. lugdunensis) detected by microarray. Single positive cultures of CoNS usually represent contamination. Call lab within 72 hours if further work up is required. Negative for Streptococcus spp. and Enterococcus spp. by microarray. Abnormal [facility] Comment on above: Performed By: #### I DBCGP, 600-7 #### [facility] CLIA [id number] [address] [place] [address] [place] Lactic Acidon 04-13-2024 Lactate [Moles/Vol] 0.7 mmol/L Normal 0.4-1.9 [facility] Comment on above: Order Comment: Y Performed By: #### L 503.6005 ####[facility] [address] [place], [address] Pelvis WITH IV Contraston Pelvis WITH IV Contrast Normal [facility] SEPSIS LACTATE W/ REFLEX (IN ITIAL)on 04-13-2024 Lactate [Moles/Vol] 0.6 mmol/L Normal 0.0-2.0 [facility] Comment on above: Order Comment: Speci men Type: BLOOD SPECIMEN Ordering Facility: [facility] Address: [address] [place] [address] Performed By: #### 5 8410-2 #### [facility] CLIA [id number] [address] [place] [address] [facility] Basic Metabolic Profile (BMP )on 04-07-2024 BUN Normal 7-18 [facility] Comment on above: Result Comment: Canc elled via OM: Order cancelled - Patient discharged Performed By: #### L 500.2500, L100.0100 ####[facility] [address] [place], [address] BUN/CRE Normal 10-20 [facility] Comment on above: Result Comment: Canc elled via OM: Order cancelled - Patient discharged Performed By: #### L 500.2500, L100.0100 ####[facility] [address] [place], [address] CA,Total Normal 8.5-10.1 [facility] Comment on above: Result Comment: Canc elled via OM: Order cancelled - Patient discharged Performed By: #### L 500.2500, L100.0100 ####[facility] [address] [place], [address] CL Normal 98-107 [facility] Comment on above: Result Comment: Canc elled via OM: Order cancelled - Patient discharged Performed By: #### L 500.2500, L100.0100 ####[facility] [address] [place], [address] CO2 Normal 21.0-32.0 [facility] Comment on above: Result Comment: Canc elled via OM: Order cancelled - Patient discharged Performed By: #### L 500.2500, L100.0100 ####[facility] [address] [place], [address] CREAT,SERUM Normal 0.55-1.02 [facility] Comment on above: Result Comment: Canc elled via OM: Order cancelled - Patient discharged Performed By: #### L 500.2500, L100.0100 ####[facility] [address] [place], [address] EST GFR Normal >60 [facility] Comment on above: Result Comment: Canc elled via OM: Order cancelled - Patient discharged Performed By: #### L 500.2500, L100.0100 ####[facility] [address] [place], [address] EST GFR - AA Normal >60 [facility] Comment on above: Result Comment: Canc elled via OM: Order cancelled - Patient discharged Performed By: #### L 500.2500, L100.0100 ####[facility] [address] [place], [address] GAP Normal 5-15 [facility] Comment on above: Result Comment: Canc elled via OM: Order cancelled - Patient discharged Performed By: #### L 500.2500, L100.0100 ####[facility] [address] [place], [address] GLU Normal 74-106 [facility] Comment on above: Result Comment: Canc elled via OM: Order cancelled - Patient discharged Performed By: #### L 500.2500, L100.0100 ####[facility] [address] [place], [address] Potassium Normal 3.5-5.1 [facility] Comment on above: Result Comment: Canc elled via OM: Order cancelled - Patient discharged Performed By: #### L 500.2500, L100.0100 ####[facility] [address] [place], [address] Basic Metabolic Profile (BMP) Normal 136-145 [facility] Comment on above: Result Comment: Canc elled via OM: Order cancelled - Patient discharged Performed By: #### L 500.2500, L100.0100 ####[facility] [address] [place], [address] CBC W/Diff, Automatedon 12-0 Absolute Neut Normal 2.0-7.7 [facility] Comment on above: Result Comment: Canc elled via OM: Order cancelled - Patient discharged Performed By: #### L 500.2500, L100.0100 ####[facility] [address] [place], [address] HCT Normal 37-47 [facility] Comment on above: Result Comment: Canc elled via OM: Order cancelled - Patient discharged Performed By: #### L 500.2500, L100.0100 ####[facility] [address] [place], [address] HGB Normal 12.0-15.0 [facility] Comment on above: Result Comment: Canc elled via OM: Order cancelled - Patient discharged Performed By: #### L 500.2500, L100.0100 ####[facility] [address] [place], [address] MCH Normal 27.0-32.0 [facility] Comment on above: Result Comment: Canc elled via OM: Order cancelled - Patient discharged Performed By: #### L 500.2500, L100.0100 ####[facility] [address] [place], [address] MCHC Normal 32-36 [facility] Comment on above: Result Comment: Canc elled via OM: Order cancelled - Patient discharged Performed By: #### L 500.2500, L100.0100 ####[facility] [address] [place], [address] MCV Normal 81-99 [facility] Comment on above: Result Comment: Canc elled via OM: Order cancelled - Patient discharged Performed By: #### L 500.2500, L100.0100 ####[facility] [address] [place], [address] NEUT% Normal 47-70 [facility] Comment on above: Result Comment: Canc elled via OM: Order cancelled - Patient discharged Performed By: #### L 500.2500, L100.0100 ####[facility] [address] [place], [address] PLT Normal 150-450 [facility] Comment on above: Result Comment: Canc elled via OM: Order cancelled - Patient discharged Performed By: #### L 500.2500, L100.0100 ####[facility] [address] [place], [address] RBC Normal 4.2-5.4 [facility] Comment on above: Result Comment: Canc elled via OM: Order cancelled - Patient discharged Performed By: #### L 500.2500, L100.0100 ####[facility] [address] [place], [address] RDW CV Normal 11.6-14.6 [facility] Comment on above: Result Comment: Canc elled via OM: Order cancelled - Patient discharged Performed By: #### L 500.2500, L100.0100 ####[facility] [address] [place], [address] RDW SD Normal 35.1-43.9 [facility] Comment on above: Result Comment: Canc elled via OM: Order cancelled - Patient discharged Performed By: #### L 500.2500, L100.0100 ####[facility] [address] [place], [address] WBC Normal 4.4-11.0 [facility] Comment on above: Result Comment: Canc elled via OM: Order cancelled - Patient discharged Performed By: #### L 500.2500, L100.0100 ####[facility] [address] [place], [address] Basic Metabolic Profile (BMP )on 04-06-2024 BUN Normal 7-18 [facility] Comment on above: Result Comment: Canc elled via OM: Order cancelled - Patient discharged Performed By: #### L 100.0100, L500.2500 ####[facility] [address] [place], [address] BUN/CRE Normal 10-20 [facility] Comment on above: Result Comment: Canc elled via OM: Order cancelled - Patient discharged Performed By: #### L 100.0100, L500.2500 ####[facility] [address] [place], [address] CA,Total Normal 8.5-10.1 [facility] Comment on above: Result Comment: Canc elled via OM: Order cancelled - Patient discharged Performed By: #### L 100.0100, L500.2500 ####[facility] [address] [place], [address] CL Normal 98-107 [facility] Comment on above: Result Comment: Canc elled via OM: Order cancelled - Patient discharged Performed By: #### L 100.0100, L500.2500 ####[facility] [address] [place], [address] CO2 Normal 21.0-32.0 [facility] Comment on above: Result Comment: Canc elled via OM: Order cancelled - Patient discharged Performed By: #### L 100.0100, L500.2500 ####[facility] [address] [place], [address] CREAT,SERUM Normal 0.55-1.02 [facility] Comment on above: Result Comment: Canc elled via OM: Order cancelled - Patient discharged Performed By: #### L 100.0100, L500.2500 ####[facility] [address] [place], [address] EST GFR Normal >60 [facility] Comment on above: Result Comment: Canc elled via OM: Order cancelled - Patient discharged Performed By: #### L 100.0100, L500.2500 ####[facility] [address] [place], [address] EST GFR - AA Normal >60 [facility] Comment on above: Result Comment: Canc elled via OM: Order cancelled - Patient discharged Performed By: #### L 100.0100, L500.2500 ####[facility] [address] [place], [address] GAP Normal 5-15 [facility] Comment on above: Result Comment: Canc elled via OM: Order cancelled - Patient discharged Performed By: #### L 100.0100, L500.2500 ####[facility] [address] [place], [address] GLU Normal 74-106 [facility] Comment on above: Result Comment: Canc elled via OM: Order cancelled - Patient discharged Performed By: #### L 100.0100, L500.2500 ####[facility] [address] [place], [address] Potassium Normal 3.5-5.1 [facility] Comment on above: Result Comment: Canc elled via OM: Order cancelled - Patient discharged Performed By: #### L 100.0100, L500.2500 ####[facility] [address] [place], [address] Basic Metabolic Profile (BMP) Normal 136-145 [facility] Comment on above: Result Comment: Canc elled via OM: Order cancelled - Patient discharged Performed By: #### L 100.0100, L500.2500 ####[facility] [address] [place], [address] CBC W/Diff, Automatedon 12-0 Absolute Neut Normal 2.0-7.7 [facility] Comment on above: Result Comment: Canc elled via OM: Order cancelled - Patient discharged Performed By: #### L 100.0100, L500.2500 ####[facility] [address] [place], [address] HCT Normal 37-47 [facility] Comment on above: Result Comment: Canc elled via OM: Order cancelled - Patient discharged Performed By: #### L 100.0100, L500.2500 ####[facility] [address] [place], [address] HGB Normal 12.0-15.0 [facility] Comment on above: Result Comment: Canc elled via OM: Order cancelled - Patient discharged Performed By: #### L 100.0100, L500.2500 ####[facility] [address] [place], [address] MCH Normal 27.0-32.0 [facility] Comment on above: Result Comment: Canc elled via OM: Order cancelled - Patient discharged Performed By: #### L 100.0100, L500.2500 ####[facility] [address] [place], [address] MCHC Normal 32-36 [facility] Comment on above: Result Comment: Canc elled via OM: Order cancelled - Patient discharged Performed By: #### L 100.0100, L500.2500 ####[facility] [address] [place], [address] MCV Normal 81-99 [facility] Comment on above: Result Comment: Canc elled via OM: Order cancelled - Patient discharged Performed By: #### L 100.0100, L500.2500 ####[facility] [address] [place], [address] NEUT% Normal 47-70 [facility] Comment on above: Result Comment: Canc elled via OM: Order cancelled - Patient discharged Performed By: #### L 100.0100, L500.2500 ####[facility] [address] [place], [address] PLT Normal 150-450 [facility] Comment on above: Result Comment: Canc elled via OM: Order cancelled - Patient discharged Performed By: #### L 100.0100, L500.2500 ####[facility] [address] [place], [address] RBC Normal 4.2-5.4 [facility] Comment on above: Result Comment: Canc elled via OM: Order cancelled - Patient discharged Performed By: #### L 100.0100, L500.2500 ####[facility] [address] [place], [address] RDW CV Normal 11.6-14.6 [facility] Comment on above: Result Comment: Canc elled via OM: Order cancelled - Patient discharged Performed By: #### L 100.0100, L500.2500 ####[facility] [address] [place], [address] RDW SD Normal 35.1-43.9 [facility] Comment on above: Result Comment: Canc elled via OM: Order cancelled - Patient discharged Performed By: #### L 100.0100, L500.2500 ####[facility] [address] [place], [address] WBC Normal 4.4-11.0 [facility] Comment on above: Result Comment: Canc elled via OM: Order cancelled - Patient discharged Performed By: #### L 100.0100, L500.2500 ####[facility] [address] [place], [address] Ammoniaon 04-05-2024 Ammonia (P) [Moles/Vol] 13.0 umol/L Normal 11-32 [facility] Comment on above: Performed By: #### L 503.5510 ####[facility] [address] [place], [address] Basic Metabolic Profile (BMP )on 04-05-2024 BUN/CRE 74.1 RATIO High 10-20 [facility] Comment on above: Performed By: #### L 100.0100, L501.5200, L501.2300, L500.2500 ####[facility] [address] [place], [address] CA,Total 8.5 mg/dL Normal 8.5-10.1 [facility] Comment on above: Performed By: #### L 100.0100, L501.5200, L501.2300, L500.2500 ####[facility] [address] [place], [address] Chloride [Moles/Vol] 105 mmol/L Normal 98-107 [facility] Comment on above: Performed By: #### L 100.0100, L501.5200, L501.2300, L500.2500 ####[facility] [address] [place], [address] CO2 [Moles/Vol] 30.0 mmol/L Normal 21.0-32.0 [facility] Comment on above: Performed By: #### L 100.0100, L501.5200, L501.2300, L500.2500 ####[facility] [address] [place], [address] Creatinine [Mass/Vol] 0.30 mg/dL Low 0.55-1.02 [facility] Comment on above: Result Comment: The validity of the calculated GFR GFRAA in patients over70 years has not been determined. Clinical correlation isessential. Performed By: #### L 100.0100, L501.5200, L501.2300, L500.2500 ####[facility] [address] [place], [address] ECRCL 47.36 ml/min Normal [facility] Comment on above: Performed By: #### L 100.0100, L501.5200, L501.2300, L500.2500 ####[facility] [address] [place], [address] EST GFR - AA 284 mL/min Normal >60 [facility] Comment on above: Result Comment: Afri can Qatari GFR Calc Performed By: #### L 100.0100, L501.5200, L501.2300, L500.2500 ####[facility] [address] [place], [address] GAP 3 Low 5-15 [facility] Comment on above: Performed By: #### L 100.0100, L501.5200, L501.2300, L500.2500 ####[facility] [address] [place], [address] GFR/1.73 sq M.predicted among non-blacks MDRD (S/P/Bld) [Vol rate/Area] 235 mL/min/{1.73_m2} Normal >60 [facility] Comment on above: Result Comment: Non- GFR Calc Performed By: #### L 100.0100, L501.5200, L501.2300, L500.2500 ####[facility] [address] [place], [address] Glucose [Mass/Vol] 114 mg/dL High 74-106 [facility] Comment on above: Result Comment: Fast ing Glucose result from 100 to 125 mg/dLsuggests IMPAIRED HOMEOSTASIS per A.D.A. criteria. Performed By: #### L 100.0100, L501.5200, L501.2300, L500.2500 ####[facility] [address] [place], [address] Potassium [Moles/Vol] 4.8 mmol/L Normal 3.5-5.1 [facility] Comment on above: Performed By: #### L 100.0100, L501.5200, L501.2300, L500.2500 ####[facility] [address] [place], [address] Sodium [Moles/Vol] 137 mmol/L Normal 136-145 [facility] Comment on above: Performed By: #### L 100.0100, L501.5200, L501.2300, L500.2500 ####[facility] [address] [place], [address] Urea nitrogen [Mass/Vol] 22 mg/dL High 7-18 [facility] Comment on above: Performed By: #### L 100.0100, L501.5200, L501.2300, L500.2500 ####[facility] [address] [place], [address] CBC W/Diff, Automatedon 12-0 Anisocytosis Ql (Bld) 1+ Normal [facility] Comment on above: Performed By: #### L 100.0100, L501.5200, L501.2300, L500.2500 ####[facility] [address] [place], [address] Culture, Blood (WB)on 2023 CUB Blood cultures x2, from two different sites No growth in 5 days. Normal [facility] Comment on above: Performed By: #### L 500.4050, L100.0100, L300.3900, M200.1000, L300.4310, L501.4020, L503.6005 ####[facility] [address] [place], [address] Liver Profileon 04-05-2024 Albumin [Mass/Vol] 1.5 g/dL Low 3.2-5.0 [facility] Comment on above: Performed By: #### L 500.3400 ####[facility] [address] [place], [address] ALK P 145 U/L High 45-117 [facility] Comment on above: Performed By: #### L 500.3400 ####[facility] [address] [place], [address] ALT [Catalytic activity/Vol] 25 U/L Normal 13-56 [facility] Comment on above: Performed By: #### L 500.3400 ####[facility] [address] [place], [address] AST [Catalytic activity/Vol] 27 U/L Normal 15-37 [facility] Comment on above: Performed By: #### L 500.3400 ####[facility] [address] [place], [address] Bilirubin [Mass/Vol] 0.30 mg/dL Normal 0.20-1.00 [facility] Comment on above: Result Comment: For patients on eltrombopag therapy, use of Dimension [place] TBIL is not recommended. Performed By: #### L 500.3400 ####[facility] [address] [place], [address] Bilirubin.direct [Mass/Vol] 0.18 mg/dL Normal 0.00-0.30 [facility] Comment on above: Performed By: #### L 500.3400 ####[facility] [address] [place], [address] Globulin (S) [Mass/Vol] 2.9 g/dL Normal 2.2-4.2 [facility] Comment on above: Performed By: #### L 500.3400 ####[facility] [address] [place], [address] T PROT 4.4 g/dL Low 6.4-8.2 [facility] Comment on above: Performed By: #### L 500.3400 ####[facility] [address] [place], [address] Magnesiumon 04-05-2024 Magnesium [Mass/Vol] 2.0 mg/dL Normal 1.6-2.6 [facility] Comment on above: Performed By: #### L 100.0100, L501.5200, L501.2300, L500.2500 ####[facility] [address] [place], [address] Phosphoruson 04-05-2024 Phosphate [Mass/Vol] 4.2 mg/dL Normal 2.5-4.9 [facility] Comment on above: Performed By: #### L 100.0100, L501.5200, L501.2300, L500.2500 ####[facility] [address] [place], [address] Stool Occult Blood iFOBon STOB Normal [facility] Comment on above: Performed By: #### M 100.7900 ####[facility] [address] [place], [address] BRCon 04-04-2024 RC Normal [facility] Comment on above: Result Comment: [id number] AN RC READY Performed By: #### B RC ####[facility] [address] [place], [address] Basic Metabolic Profile (BMP )on 04-04-2024 BUN/CRE 68.2 RATIO High 10-20 [facility] Comment on above: Performed By: #### L 100.0100, L500.2500 ####[facility] [address] [place], [address] CA,Total 9.0 mg/dL Normal 8.5-10.1 [facility] Comment on above: Performed By: #### L 100.0100, L500.2500 ####[facility] [address] [place], [address] Chloride [Moles/Vol] 106 mmol/L Normal 98-107 [facility] Comment on above: Performed By: #### L 100.0100, L500.2500 ####[facility] [address] [place], [address] CO2 [Moles/Vol] 28.0 mmol/L Normal 21.0-32.0 [facility] Comment on above: Performed By: #### L 100.0100, L500.2500 ####[facility] [address] [place], [address] Creatinine [Mass/Vol] 0.31 mg/dL Low 0.55-1.02 [facility] Comment on above: Result Comment: The validity of the calculated GFR GFRAA in patients over70 years has not been determined. Clinical correlation isessential. Performed By: #### L 100.0100, L500.2500 ####[facility] [address] [place], [address] ECRCL 47.36 ml/min Normal [facility] Comment on above: Performed By: #### L 100.0100, L500.2500 ####[facility] [address] [place], [address] EST GFR - AA 272 mL/min Normal >60 [facility] Comment on above: Result Comment: Afri can Qatari GFR Calc Performed By: #### L 100.0100, L500.2500 ####[facility] [address] [place], [address] GAP 3 Low 5-15 [facility] Comment on above: Performed By: #### L 100.0100, L500.2500 ####[facility] [address] [place], [address] GFR/1.73 sq M.predicted among non-blacks MDRD (S/P/Bld) [Vol rate/Area] 225 mL/min/{1.73_m2} Normal >60 [facility] Comment on above: Result Comment: Non- GFR Calc Performed By: #### L 100.0100, L500.2500 ####[facility] [address] [place], [address] Glucose [Mass/Vol] 111 mg/dL High 74-106 [facility] Comment on above: Result Comment: Fast ing Glucose result from 100 to 125 mg/dLsuggests IMPAIRED HOMEOSTASIS per A.D.A. criteria. Performed By: #### L 100.0100, L500.2500 ####[facility] [address] [place], [address] Potassium [Moles/Vol] 4.9 mmol/L Normal 3.5-5.1 [facility] Comment on above: Performed By: #### L 100.0100, L500.2500 ####[facility] [address] [place], [address] Sodium [Moles/Vol] 137 mmol/L Normal 136-145 [facility] Comment on above: Performed By: #### L 100.0100, L500.2500 ####[facility] [address] [place], [address] Urea nitrogen [Mass/Vol] 21 mg/dL High 7-18 [facility] Comment on above: Performed By: #### L 100.0100, L500.2500 ####[facility] [address] [place], [address] CBC W/Diff, Automatedon 12-0 2-2024 Absolute Lymph 0.68 X10 3/uL Low 0.83-4.51 [facility] Comment on above: Performed By: #### L 100.0100, L500.2500 ####[facility] [address] [place], [address] Absolute Neut 10.1 X10 3/uL High 2.0-7.7 [facility] Comment on above: Performed By: #### L 100.0100, L500.2500 ####[facility] [address] [place], [address] Basophils/100 WBC (Bld) 0.4 % Normal 0-1 [facility] Comment on above: Performed By: #### L 100.0100, L500.2500 ####[facility] [address] [place], [address] Eosinophils/100 WBC (Bld) 1.3 % Normal 0-5 [facility] Comment on above: Performed By: #### L 100.0100, L500.2500 ####[facility] [address] [place], [address] Erythrocyte distribution width (RBC) [Ratio] 13.8 % Normal 11.6-14.6 [facility] Comment on above: Performed By: #### L 100.0100, L500.2500 ####[facility] [address] [place], [address] Hematocrit (Bld) [Volume fraction] 24.0 % Low 37-47 [facility] Comment on above: Performed By: #### L 100.0100, L500.2500 ####[facility] [address] [place], [address] Hemoglobin (Bld) [Mass/Vol] 8.1 g/dL Low 12.0-15.0 [facility] Comment on above: Performed By: #### L 100.0100, L500.2500 ####[facility] [address] [place], [address] IG% 1.500 High 0.0-0.9 [facility] Comment on above: Result Comment: IG% - Immature Granulocytes (promyelocytes, myelocytes andmetamyelocytes) > 1% indicates that a LEFT SHIFT is Present. Performed By: #### L 100.0100, L500.2500 ####[facility] [address] [place], [address] Lymphocytes/100 WBC (Bld) 5.8 % Low 19-41 [facility] Comment on above: Performed By: #### L 100.0100, L500.2500 ####[facility] [address] [place], [address] MCH (RBC) [Entitic mass] 31.2 pg Normal 27.0-32.0 [facility] Comment on above: Performed By: #### L 100.0100, L500.2500 ####[facility] [address] [place], [address] MCHC (RBC) [Mass/Vol] 33.8 g/dL Normal 32-36 [facility] Comment on above: Performed By: #### L 100.0100, L500.2500 ####[facility] [address] [place], [address] MCV (RBC) [Entitic vol] 92.3 fL Normal 81-99 [facility] Comment on above: Performed By: #### L 100.0100, L500.2500 ####[facility] [address] [place], [address] Monocytes/100 WBC (Bld) 4.6 % Normal 0-10 [facility] Comment on above: Performed By: #### L 100.0100, L500.2500 ####[facility] [address] [place], [address] Neutrophils/100 WBC (Bld) 86.4 % High 47-70 [facility] Comment on above: Performed By: #### L 100.0100, L500.2500 ####[facility] [address] [place], [address] Nucleated RBC (Bld) [#/Vol] 0 10*3/uL Normal 0-5 [facility] Comment on above: Performed By: #### L 100.0100, L500.2500 ####[facility] [address] [place], [address] Platelet mean volume (Bld) [Entitic vol] 10.9 fL Normal 6.2-12.0 [facility] Comment on above: Performed By: #### L 100.0100, L500.2500 ####[facility] [address] [place], [address] Platelets (Bld) [#/Vol] 126 10*3/uL Low 150-450 [facility] Comment on above: Performed By: #### L 100.0100, L500.2500 ####[facility] [address] [place], [address] RBC (Bld) [#/Vol] 2.60 10*6/uL Low 4.2-5.4 [facility] Comment on above: Performed By: #### L 100.0100, L500.2500 ####[facility] [address] [place], [address] RDW SD 46.4 fl High 35.1-43.9 [facility] Comment on above: Performed By: #### L 100.0100, L500.2500 ####[facility] [address] [place], [address] WBC (Bld) [#/Vol] 11.6 10*3/uL High 4.4-11.0 [facility] Comment on above: Performed By: #### L 100.0100, L500.2500 ####[facility] [address] [place], [address] Iron+Iron Binding Capacityon 04-04-2024 Iron [Mass/Vol] 18 ug/dL Low 50-170 [facility] Comment on above: Performed By: #### L 503.0105, L503.6030 ####[facility] [address] [place], [address] IRON SATURATION 14.4 Low 15.0-55.0 [facility] Comment on above: Performed By: #### L 503.0105, L503.6030 ####[facility] [address] [place], [address] TIBC 125 ug/dL Low 250-450 [facility] Comment on above: Performed By: #### L 503.0105, L503.6030 ####[facility] [address] [place], [address] Type AND Screenon 04-04-2024 ABO and Rh group Nom (Bld) Blood group A Rh(D) negative [facility] Comment on above: Order Comment: A Performed By: #### B TS ####[facility] [address] [place], [address] Ab SCREEN GEL Negative Normal [facility] Comment on above: Order Comment: A Performed By: #### B TS ####[facility] [address] [place], [address] Vitamin B12on 04-04-2024 Cobalamin (Vitamin B12) [Mass/Vol] 853 pg/mL Normal 211-911 [facility] Comment on above: Performed By: #### L 503.0105, L503.6030 ####[facility] [address] [place], [address] 12 Lead EKGon 04-03-2024 12 Lead EKG Normal [facility] Basic Metabolic Profile (BMP )on 04-03-2024 BUN/CRE 61.7 RATIO High 10-20 [facility] Comment on above: Performed By: #### L 100.0100, L500.2500 ####[facility] [address] [place], [address] CA,Total 8.1 mg/dL Low 8.5-10.1 [facility] Comment on above: Performed By: #### L 100.0100, L500.2500 ####[facility] [address] [place], [address] Chloride [Moles/Vol] 106 mmol/L Normal 98-107 [facility] Comment on above: Performed By: #### L 100.0100, L500.2500 ####[facility] [address] [place], [address] CO2 [Moles/Vol] 27.0 mmol/L Normal 21.0-32.0 [facility] Comment on above: Performed By: #### L 100.0100, L500.2500 ####[facility] [address] [place], [address] Creatinine [Mass/Vol] 0.31 mg/dL Low 0.55-1.02 [facility] Comment on above: Result Comment: The validity of the calculated GFR GFRAA in patients over70 years has not been determined. Clinical correlation isessential. Performed By: #### L 100.0100, L500.2500 ####[facility] [address] [place], [address] ECRCL 47.36 ml/min Normal [facility] Comment on above: Performed By: #### L 100.0100, L500.2500 ####[facility] [address] [place], [address] EST GFR - AA 272 mL/min Normal >60 [facility] Comment on above: Result Comment: Afri can Qatari GFR Calc Performed By: #### L 100.0100, L500.2500 ####[facility] [address] [place], [address] GAP 4 Low 5-15 [facility] Comment on above: Performed By: #### L 100.0100, L500.2500 ####[facility] [address] [place], [address] GFR/1.73 sq M.predicted among non-blacks MDRD (S/P/Bld) [Vol rate/Area] 225 mL/min/{1.73_m2} Normal >60 [facility] Comment on above: Result Comment: Non- GFR Calc Performed By: #### L 100.0100, L500.2500 ####[facility] [address] [place], [address] Glucose [Mass/Vol] 82 mg/dL Normal 74-106 [facility] Comment on above: Performed By: #### L 100.0100, L500.2500 ####[facility] [address] [place], [address] Potassium [Moles/Vol] 5.3 mmol/L High 3.5-5.1 [facility] Comment on above: Performed By: #### L 100.0100, L500.2500 ####[facility] [address] [place], [address] Sodium [Moles/Vol] 138 mmol/L Normal 136-145 [facility] Comment on above: Performed By: #### L 100.0100, L500.2500 ####[facility] [address] [place], [address] Urea nitrogen [Mass/Vol] 19 mg/dL High 7-18 [facility] Comment on above: Performed By: #### L 100.0100, L500.2500 ####[facility] [address] [place], [address] CBC W/Diff, Automatedon 12-0 SMEAR COMMENT SCANNED Normal [facility] Comment on above: Performed By: #### L 100.0100, L500.2500 ####[facility] [address] [place], [address] Abdomen Single View (Portabl e)on 04-02-2024 Abdomen Single View (Portable) Normal [facility] Basic Metabolic Profile (BMP )on 04-02-2024 BUN/CRE 50.4 RATIO High 10-20 [facility] Comment on above: Performed By: #### L 500.2500, L100.0100 ####[facility] [address] [place], [address] CA,Total 7.9 mg/dL Low 8.5-10.1 [facility] Comment on above: Performed By: #### L 500.2500, L100.0100 ####[facility] [address] [place], [address] Chloride [Moles/Vol] 106 mmol/L Normal 98-107 [facility] Comment on above: Performed By: #### L 500.2500, L100.0100 ####[facility] [address] [place], [address] CO2 [Moles/Vol] 25.0 mmol/L Normal 21.0-32.0 [facility] Comment on above: Performed By: #### L 500.2500, L100.0100 ####[facility] [address] [place], [address] Creatinine [Mass/Vol] 0.42 mg/dL Low 0.55-1.02 [facility] Comment on above: Result Comment: The validity of the calculated GFR GFRAA in patients over70 years has not been determined. Clinical correlation isessential. Performed By: #### L 500.2500, L100.0100 ####[facility] [address] [place], [address] ECRCL 47.36 ml/min Normal [facility] Comment on above: Performed By: #### L 500.2500, L100.0100 ####[facility] [address] [place], [address] EST GFR - AA 192 mL/min Normal >60 [facility] Comment on above: Result Comment: Afri can Qatari GFR Calc Performed By: #### L 500.2500, L100.0100 ####[facility] [address] [place], [address] GAP 5 Normal 5-15 [facility] Comment on above: Performed By: #### L 500.2500, L100.0100 ####[facility] [address] [place], [address] GFR/1.73 sq M.predicted among non-blacks MDRD (S/P/Bld) [Vol rate/Area] 159 mL/min/{1.73_m2} Normal >60 [facility] Comment on above: Result Comment: Non- GFR Calc Performed By: #### L 500.2500, L100.0100 ####[facility] [address] [place], [address] Glucose [Mass/Vol] 97 mg/dL Normal 74-106 [facility] Comment on above: Performed By: #### L 500.2500, L100.0100 ####[facility] [address] [place], [address] Potassium [Moles/Vol] 2.7 mmol/L Invalid Interpretation Code 3.5-5.1 [facility] Comment on above: Result Comment: Crit ical Result(s) Called at: 07:29:48 04/02/2024 by:Denisse Morrison. Results read back by same. Performed By: #### L 500.2500, L100.0100 ####[facility] [address] [place], [address] Sodium [Moles/Vol] 136 mmol/L Normal 136-145 [facility] Comment on above: Performed By: #### L 500.2500, L100.0100 ####[facility] [address] [place], [address] Urea nitrogen [Mass/Vol] 21 mg/dL High 7-18 [facility] Comment on above: Performed By: #### L 500.2500, L100.0100 ####[facility] [address] [place], [address] Bedside Glucoseon 04-02-2024 FINGERSTICK GLU 101 mg/dL Normal 74-106 [facility] Comment on above: Result Comment: LIAM HERNANDEZ OF PATIENT CARE PER NURSING PROTOCOL Performed By: #### L 501.080 ####[facility] [address] [place], [address] CBC W/Diff, Automatedon 03-06 SMEAR COMMENT SCANNED Normal [facility] Comment on above: Performed By: #### L 500.2500, L100.0100 ####[facility] [address] [place], [address] Urine Cultureon 04-02-2024 URC Normal [facility] Comment on above: Performed By: #### M 100.678, M100.2200, L400.0001 ####[facility] [address] [place], [address] Basic Metabolic Profile (BMP )on 04-01-2024 BUN/CRE 47.4 RATIO High 10-20 [facility] Comment on above: Performed By: #### L 300.3900, L500.3400, L500.4050, L100.0100, L501.5200, L501.2300, L501.9520, L500.2500 ####[facility] [address] [place], [address] CA,Total 7.6 mg/dL Low 8.5-10.1 [facility] Comment on above: Performed By: #### L 300.3900, L500.3400, L500.4050, L100.0100, L501.5200, L501.2300, L501.9520, L500.2500 ####[facility] [address] [place], [address] Chloride [Moles/Vol] 107 mmol/L Normal 98-107 [facility] Comment on above: Performed By: #### L 300.3900, L500.3400, L500.4050, L100.0100, L501.5200, L501.2300, L501.9520, L500.2500 ####[facility] [address] [place], [address] CO2 [Moles/Vol] 21.0 mmol/L Normal 21.0-32.0 [facility] Comment on above: Performed By: #### L 300.3900, L500.3400, L500.4050, L100.0100, L501.5200, L501.2300, L501.9520, L500.2500 ####[facility] [address] [place], [address] Creatinine [Mass/Vol] 0.68 mg/dL Normal 0.55-1.02 [facility] Comment on above: Result Comment: The validity of the calculated GFR GFRAA in patients over70 years has not been determined. Clinical correlation isessential. Performed By: #### L 300.3900, L500.3400, L500.4050, L100.0100, L501.5200, L501.2300, L501.9520, L500.2500 ####[facility] [address] [place], [place], [address] ECRCL 47.36 ml/min Normal [facility] Comment on above: Performed By: #### L 300.3900, L500.3400, L500.4050, L100.0100, L501.5200, L501.2300, L501.9520, L500.2500 ####[facility] [address] [place], [place], [id number]) EST GFR - AA 110 mL/min Normal >60 [facility] Comment on above: Result Comment: Afri can Qatari GFR Calc Performed By: #### L 300.3900, L500.3400, L500.4050, L100.0100, L501.5200, L501.2300, L501.9520, L500.2500 ####[facility] [address] [place], [place], [id number] GAP 9 Normal 5-15 [facility] Comment on above: Performed By: #### L 300.3900, L500.3400, L500.4050, L100.0100, L501.5200, L501.2300, L501.9520, L500.2500 ####[facility] [address] [place], [place], [phone](226) GFR/1.73 sq M.predicted among non-blacks MDRD (S/P/Bld) [Vol rate/Area] 91 mL/min/{1.73_m2} Normal >60 [facility] Comment on above: Result Comment: Non- GFR Calc Performed By: #### L 300.3900, L500.3400, L500.4050, L100.0100, L501.5200, L501.2300, L501.9520, L500.2500 ####[facility] [address] [place], [place], [id number] Glucose [Mass/Vol] 135 mg/dL High 74-106 [facility] Comment on above: Result Comment: Fast ing Glucose result greater than or equal to 126 mg/dLsuggests DIABETES MELLITUS per A.D.A. criteria. Performed By: #### L 300.3900, L500.3400, L500.4050, L100.0100, L501.5200, L501.2300, L501.9520, L500.2500 ####[facility] [address] [place], [address] Potassium [Moles/Vol] 2.8 mmol/L Low 3.5-5.1 [facility] Comment on above: Performed By: #### L 300.3900, L500.3400, L500.4050, L100.0100, L501.5200, L501.2300, L501.9520, L500.2500 ####[facility] [address] [place], [address] Sodium [Moles/Vol] 137 mmol/L Normal 136-145 [facility] Comment on above: Performed By: #### L 300.3900, L500.3400, L500.4050, L100.0100, L501.5200, L501.2300, L501.9520, L500.2500 ####[facility] [address] [place], [address] Urea nitrogen [Mass/Vol] 32 mg/dL High 7-18 [facility] Comment on above: Performed By: #### L 300.3900, L500.3400, L500.4050, L100.0100, L501.5200, L501.2300, L501.9520, L500.2500 ####[facility] [address] [place], [address] CBC W/Diff, Automatedon 11-2 SMEAR COMMENT COMMENT Normal [facility] Comment on above: Result Comment: LYMP HOPENIA. Performed By: #### L 300.3900, L500.3400, L500.4050, L100.0100, L501.5200, L501.2300, L501.9520, L500.2500 ####[facility] [address] [place], [place], [id number] CTA Chest W/WO Contraston CTA Chest W/WO Contrast Normal [facility] Comprehensive Metabolic Prof ilon 04-01-2024 Albumin/Globulin [Mass ratio] 0.6 {ratio} Low 0.9-2.4 [facility] Comment on above: Performed By: #### L 300.3900, L500.3400, L500.4050, L100.0100, L501.5200, L501.2300, L501.9520, L500.2500 ####[facility] [address] [place], [address] Consultation - Cardiologyon 04-01-2024 Consultation - Cardiology Normal [facility] D-Dimer Quantitative (DVT/PE )on 04-01-2024 D-DIMER QUANT 1.81 FEU/ug/m Invalid Interpretation Code 0.27-0.49 [facility] Comment on above: Order Comment: CRITI NATTY VALUE CALLED TO SUMA MC04/01/24 [place].RESULTS READ BACK BY SAME. Result Comment: D-Di jan ELEVATED (>0.49): Additional studies and clinicalassessments are indicated to conclude diagnosis of:Deep Vein Thrombosis (DVT) or Pulmonary Embolism (PE) Performed By: #### L 300.8000 ####[facility] [address] [place], [place], [id number] ENTERIC PATHOGEN PANEL STOOL on 04-01-2024 EP PANEL Normal [facility] Comment on above: Performed By: #### M 100.637 ####[facility] [address] [place], [place], [phone] Echo Completeon 04-01-2024 Echo Complete Normal [facility] Liver Profileon 04-01-2024 Albumin [Mass/Vol] 2.1 g/dL Low 3.2-5.0 [facility] Comment on above: Performed By: #### L 300.3900, L500.3400, L500.4050, L100.0100, L501.5200, L501.2300, L501.9520, L500.2500 ####[facility] [address] [place], [address] ALK P 96 U/L Normal 45-117 [facility] Comment on above: Performed By: #### L 300.3900, L500.3400, L500.4050, L100.0100, L501.5200, L501.2300, L501.9520, L500.2500 ####[facility] [address] [place], [address] ALT [Catalytic activity/Vol] 10 U/L Low 13-56 [facility] Comment on above: Performed By: #### L 300.3900, L500.3400, L500.4050, L100.0100, L501.5200, L501.2300, L501.9520, L500.2500 ####[facility] [address] [place], [address] AST [Catalytic activity/Vol] 16 U/L Normal 15-37 [facility] Comment on above: Performed By: #### L 300.3900, L500.3400, L500.4050, L100.0100, L501.5200, L501.2300, L501.9520, L500.2500 ####[facility] [address] [place], [address] Bilirubin [Mass/Vol] 0.60 mg/dL Normal 0.20-1.00 [facility] Comment on above: Result Comment: For patients on eltrombopag therapy, use of Dimension [place] TBIL is not recommended. Performed By: #### L 300.3900, L500.3400, L500.4050, L100.0100, L501.5200, L501.2300, L501.9520, L500.2500 ####[facility] [address] [place], [address] Bilirubin.direct [Mass/Vol] 0.24 mg/dL Normal 0.00-0.30 [facility] Comment on above: Performed By: #### L 300.3900, L500.3400, L500.4050, L100.0100, L501.5200, L501.2300, L501.9520, L500.2500 ####[facility] [address] [place], [address] Globulin (S) [Mass/Vol] 3.3 g/dL Normal 2.2-4.2 [facility] Comment on above: Performed By: #### L 300.3900, L500.3400, L500.4050, L100.0100, L501.5200, L501.2300, L501.9520, L500.2500 ####[facility] [address] [place], [address] T PROT 5.4 g/dL Low 6.4-8.2 [facility] Comment on above: Performed By: #### L 300.3900, L500.3400, L500.4050, L100.0100, L501.5200, L501.2300, L501.9520, L500.2500 ####[facility] [address] [place], [address] Magnesiumon 04-01-2024 Magnesium [Mass/Vol] 2.1 mg/dL Normal 1.6-2.6 [facility] Comment on above: Performed By: #### L 300.3900, L500.3400, L500.4050, L100.0100, L501.5200, L501.2300, L501.9520, L500.2500 ####[facility] [address] [place], [address] Phosphoruson 04-01-2024 Phosphate [Mass/Vol] 2.9 mg/dL Normal 2.5-4.9 [facility] Comment on above: Performed By: #### L 300.3900, L500.3400, L500.4050, L100.0100, L501.5200, L501.2300, L501.9520, L500.2500 ####[facility] [address] [place], [address] Prothrombin Time w/INRon INR Coag (PPP) [Relative time] 1.3 {INR} Normal [facility] Comment on above: Performed By: #### L 300.3900, L500.3400, L500.4050, L100.0100, L501.5200, L501.2300, L501.9520, L500.2500 ####[facility] [address] [place], [place], [id number] PT Coag (PPP) [Time] 16.5 s High 11.7-14.9 [facility] Comment on above: Performed By: #### L 300.3900, L500.3400, L500.4050, L100.0100, L501.5200, L501.2300, L501.9520, L500.2500 ####[facility] [address] [place], [place], [address] Thyroid Stim Hormone (TSH)on 04-01-2024 TSH 0.588 uIU/mL Normal 0.358-3.740 [facility] Comment on above: Performed By: #### L 300.3900, L500.3400, L500.4050, L100.0100, L501.5200, L501.2300, L501.9520, L500.2500 ####[facility] [address] [place], [place], [address] Abdomen/Pelvis W IV Cont ONL Yon 03-31-2024 Abdomen/Pelvis W IV Cont ONLY Normal [facility] BNP,B-Type NATRIURETIC PEPTI Leah 03-31-2024 Natriuretic peptide B (Bld) [Mass/Vol] 1148.9 pg/mL High 0-100 [facility] Comment on above: Performed By: #### L 503.2425 ####[facility] [address] [place], [address] CBC W/Diff, Automatedon 11-2 SMEAR COMMENT Normal [facility] Comment on above: Result Comment: BAND S NOTED Performed By: #### L 500.4050, L100.0100, L300.3900, M200.1000, L300.4310, L501.4020, L503.6005 ####[facility] [address] [place], [address] Chest 1 View (Portable)on Chest 1 View (Portable) Normal [facility] Comprehensive Metabolic Prof ilon 03-31-2024 Albumin [Mass/Vol] 2.6 g/dL Low 3.2-5.0 [facility] Comment on above: Order Comment: 'TROP ' Serial specimen #1, #2 or #3: 1 Performed By: #### L 500.4050, L100.0100, L300.3900, M200.1000, L300.4310, L501.4020, L503.6005 ####[facility] [address] [place], [address] Albumin/Globulin [Mass ratio] 0.8 {ratio} Low 0.9-2.4 [facility] Comment on above: Order Comment: 'TROP ' Serial specimen #1, #2 or #3: 1 Performed By: #### L 500.4050, L100.0100, L300.3900, M200.1000, L300.4310, L501.4020, L503.6005 ####[facility] [address] [place], [address] ALK P 102 U/L Normal 45-117 [facility] Comment on above: Order Comment: 'TROP ' Serial specimen #1, #2 or #3: 1 Performed By: #### L 500.4050, L100.0100, L300.3900, M200.1000, L300.4310, L501.4020, L503.6005 ####[facility] [address] [place], [address] ALT [Catalytic activity/Vol] 11 U/L Low 13-56 [facility] Comment on above: Order Comment: 'TROP ' Serial specimen #1, #2 or #3: 1 Performed By: #### L 500.4050, L100.0100, L300.3900, M200.1000, L300.4310, L501.4020, L503.6005 ####[facility] [address] [place], [address] AST [Catalytic activity/Vol] 18 U/L Normal 15-37 [facility] Comment on above: Order Comment: 'TROP ' Serial specimen #1, #2 or #3: 1 Performed By: #### L 500.4050, L100.0100, L300.3900, M200.1000, L300.4310, L501.4020, L503.6005 ####[facility] [address] [place], [address] Bilirubin [Mass/Vol] 0.70 mg/dL Normal 0.20-1.00 [facility] Comment on above: Order Comment: 'TROP ' Serial specimen #1, #2 or #3: 1 Result Comment: For patients on eltrombopag therapy, use of Dimension [place] TBIL is not recommended. Performed By: #### L 500.4050, L100.0100, L300.3900, M200.1000, L300.4310, L501.4020, L503.6005 ####[facility] [address] [place], [address] BUN/CRE 42.5 RATIO High 10-20 [facility] Comment on above: Order Comment: 'TROP ' Serial specimen #1, #2 or #3: 1 Performed By: #### L 500.4050, L100.0100, L300.3900, M200.1000, L300.4310, L501.4020, L503.6005 ####[facility] [address] [place], [address] CA,Total 8.2 mg/dL Low 8.5-10.1 [facility] Comment on above: Order Comment: 'TROP ' Serial specimen #1, #2 or #3: 1 Performed By: #### L 500.4050, L100.0100, L300.3900, M200.1000, L300.4310, L501.4020, L503.6005 ####[facility] [address] [place], [address] Chloride [Moles/Vol] 97 mmol/L Low 98-107 [facility] Comment on above: Order Comment: 'TROP ' Serial specimen #1, #2 or #3: 1 Performed By: #### L 500.4050, L100.0100, L300.3900, M200.1000, L300.4310, L501.4020, L503.6005 ####[facility] [address] [place], [address] CO2 [Moles/Vol] 24.0 mmol/L Normal 21.0-32.0 [facility] Comment on above: Order Comment: 'TROP ' Serial specimen #1, #2 or #3: 1 Performed By: #### L 500.4050, L100.0100, L300.3900, M200.1000, L300.4310, L501.4020, L503.6005 ####[facility] [address] [place], [address] Creatinine [Mass/Vol] 0.80 mg/dL Normal 0.55-1.02 [facility] Comment on above: Order Comment: 'TROP ' Serial specimen #1, #2 or #3: 1 Result Comment: The validity of the calculated GFR GFRAA in patients over70 years has not been determined. Clinical correlation isessential. Performed By: #### L 500.4050, L100.0100, L300.3900, M200.1000, L300.4310, L501.4020, L503.6005 ####[facility] [address] [place], [place], [phone](185) ECRCL 43.24 ml/min Normal [facility] Comment on above: Order Comment: 'TROP ' Serial specimen #1, #2 or #3: 1 Performed By: #### L 500.4050, L100.0100, L300.3900, M200.1000, L300.4310, L501.4020, L503.6005 ####[facility] [address] [place], [place], [phone](612) EST GFR - AA 90 mL/min Normal >60 [facility] Comment on above: Order Comment: 'TROP ' Serial specimen #1, #2 or #3: 1 Result Comment: Afri can [place] GFR Calc Performed By: #### L 500.4050, L100.0100, L300.3900, M200.1000, L300.4310, L501.4020, L503.6005 ####[facility] [address] [place], [place], [phone](197) GAP 10 Normal 5-15 [facility] Comment on above: Order Comment: 'TROP ' Serial specimen #1, #2 or #3: 1 Performed By: #### L 500.4050, L100.0100, L300.3900, M200.1000, L300.4310, L501.4020, L503.6005 ####[facility] [address] [place], [place], [phone]31) GFR/1.73 sq M.predicted among non-blacks MDRD (S/P/Bld) [Vol rate/Area] 75 mL/min/{1.73_m2} Normal >60 [facility] Comment on above: Order Comment: 'TROP ' Serial specimen #1, #2 or #3: 1 Result Comment: Non- GFR Calc Performed By: #### L 500.4050, L100.0100, L300.3900, M200.1000, L300.4310, L501.4020, L503.6005 ####[facility] [address] [place], [address] Globulin (S) [Mass/Vol] 3.3 g/dL Normal 2.2-4.2 [facility] Comment on above: Order Comment: 'TROP ' Serial specimen #1, #2 or #3: 1 Performed By: #### L 500.4050, L100.0100, L300.3900, M200.1000, L300.4310, L501.4020, L503.6005 ####[facility] [address] [place], [address] Glucose [Mass/Vol] 97 mg/dL Normal 74-106 [facility] Comment on above: Order Comment: 'TROP ' Serial specimen #1, #2 or #3: 1 Performed By: #### L 500.4050, L100.0100, L300.3900, M200.1000, L300.4310, L501.4020, L503.6005 ####[facility] [address] [place], [address] Potassium [Moles/Vol] 3.0 mmol/L Low 3.5-5.1 [facility] Comment on above: Order Comment: 'TROP ' Serial specimen #1, #2 or #3: 1 Performed By: #### L 500.4050, L100.0100, L300.3900, M200.1000, L300.4310, L501.4020, L503.6005 ####[facility] [address] [place], [address] Sodium [Moles/Vol] 130 mmol/L Low 136-145 [facility] Comment on above: Order Comment: 'TROP ' Serial specimen #1, #2 or #3: 1 Performed By: #### L 500.4050, L100.0100, L300.3900, M200.1000, L300.4310, L501.4020, L503.6005 ####[facility] [address] [place], [address] T PROT 5.9 g/dL Low 6.4-8.2 [facility] Comment on above: Order Comment: 'TROP ' Serial specimen #1, #2 or #3: 1 Performed By: #### L 500.4050, L100.0100, L300.3900, M200.1000, L300.4310, L501.4020, L503.6005 ####[facility] [address] [place], [address] Urea nitrogen [Mass/Vol] 34 mg/dL High 7-18 [facility] Comment on above: Order Comment: 'TROP ' Serial specimen #1, #2 or #3: 1 Performed By: #### L 500.4050, L100.0100, L300.3900, M200.1000, L300.4310, L501.4020, L503.6005 ####[facility] [address] [place], [place], [address] Emergency Department Summary on 03-31-2024 Emergency Department Summary Normal [facility] H AND P Exam - Hospitaliston 03-31-2024 H&P Exam - Hospitalist Normal [facility] L501.4020on 03-31-2024 TROPONIN-I HS 25 pg/mL Normal 3.0-54.0 [facility] Comment on above: Order Comment: 'TROP ' Serial specimen #1, #2 or #3: 2 Result Comment: Idalia colunga Note: New Test Units and Gender Specific Reference Ranges. For more information see Policy Stat Procedure [place] High Sensitivity Troponin (TNIH) and attachments. Performed By: #### L 501.4020 ####[facility] [address] [place], [address] TROPONIN-I HS 27 pg/mL Normal 3.0-54.0 [facility] Comment on above: Order Comment: 'TROP ' Serial specimen #1, #2 or #3: 1 Result Comment: Idalia colunga Note: New Test Units and Gender Specific Reference Ranges. For more information see Policy Stat Procedure [place] High Sensitivity Troponin (TNIH) and attachments. Performed By: #### L 500.4050, L100.0100, L300.3900, M200.1000, L300.4310, L501.4020, L503.6005 ####[facility] [address] [place], [address] Lactic Acidon 03-31-2024 Lactate [Moles/Vol] 1.0 mmol/L Normal 0.4-1.9 [facility] Comment on above: Order Comment: Y Performed By: #### L 500.4050, L100.0100, L300.3900, M200.1000, L300.4310, L501.4020, L503.6005 ####[facility] [address] [place], [address] M100.678on 03-31-2024 M100.678 Pending SARS-CoV-2 (COVID 19) Negative INFLUENZA A Negative INFLUENZA B Negative RSV PCR Negative Normal [facility] Comment on above: Performed By: #### M 100.678, M100.2200, L400.0001 ####[facility] [address] [place], [address] Partial Thromboplast Timeon 03-31-2024 aPTT Coag (Bld) [Time] 41.6 s High 24.1-36.2 [facility] Comment on above: Performed By: #### L 500.4050, L100.0100, L300.3900, M200.1000, L300.4310, L501.4020, L503.6005 ####[facility] [address] [place], [address] Prothrombin Time w/INRon INR Coag (PPP) [Relative time] 1.3 {INR} Normal [facility] Comment on above: Performed By: #### L 500.4050, L100.0100, L300.3900, M200.1000, L300.4310, L501.4020, L503.6005 ####[facility] [address] [place], [address] PT Coag (PPP) [Time] 16.4 s High 11.7-14.9 [facility] Comment on above: Performed By: #### L 500.4050, L100.0100, L300.3900, M200.1000, L300.4310, L501.4020, L503.6005 ####[facility] [address] [place], [address] Urinalysis, Completeon 03-31 BACTERIA 2+ /hpf Normal None Seen [facility] Comment on above: Order Comment: COLLE CTOR TO SPECIFY Performed By: #### M 100.678, M100.2200, L400.0001 ####[facility] [address] [place], [address] WBC 0-5 SEEN Normal 0-5 [facility] Comment on above: Order Comment: COLLE CTOR TO SPECIFY Performed By: #### M 100.678, M100.2200, L400.0001 ####[facility] [address] [place], [address] EPI,SQUAMOUS 0 SEEN Normal 5-10 [facility] Comment on above: Order Comment: COLLE CTOR TO SPECIFY Performed By: #### M 100.678, M100.2200, L400.0001 ####[facility] [address] [place], [address] Mucus Ql (Urine sed) 0 SEEN Normal [facility] Comment on above: Order Comment: LAURA CTOR TO SPECIFY Performed By: #### M 100.678, M100.2200, L400.0001 ####[facility] [address] [place], [address] RBC 0 SEEN Normal 0-5 [facility] Comment on above: Order Comment: LAURA CTOR TO SPECIFY Performed By: #### M 100.678, M100.2200, L400.0001 ####[facility] [address] [place], [address] Hips B/L min 2 views w/ Pelv spencer 03-30-2024 Hips B/L min 2 views w/ Pelvis Normal [facility] Vitamin B12 measurementOrder ed By: Fransisca Orlando on 11-16-2023 Cobalamin (Vitamin B12) [Mass/Vol] 311 pg/mL 211-911 [facility] Absolute lymphocyte countOrd ered By: Fransisca Orlando on 05-11-2023 Lymphocytes Auto (Unsp spec) [#/Vol] 0.64 10*3/uL 0.83-4.51 [facility] Basophil percentageOrdered B y: Fransisca Orlando on 05-11-2023 Basophils/100 WBC (Bld) 0.6 % 0-1 [facility] Eosinophils/100 WBC (Bld) 10.1 % 0-5 [facility] Neutrophils (Bld) [#/Vol] 2.1 10*3/uL 2.0-7.7 [facility] Neutrophils/100 WBC (Bld) 59.2 % 47-70 [facility] WBC (Bld) [#/Vol] 3.5 10*3/uL 4.4-11.0 [facility] Blood erythrocytes count (nu mber/volume)Ordered By: Fransisca Orlando on 05-11-2023 RBC (Bld) [#/Vol] 3.38 10*6/uL 4.2-5.4 [facility] Blood hemoglobin measurement (mass/volume)Ordered By: Fransisca Orlando on 05-11-2023 Hemoglobin (Bld) [Mass/Vol] 11.5 g/dL 12.0-15.0 [facility] Blood lymphocytes/100 leukoc ytesOrdered By: [facility] on 05-11-2023 Lymphocytes/100 WBC (Bld) 18.5 % 19-41 [facility] Blood monocytes/100 leukocyt esOrdered By: Fransisca Orlando on 05-11-2023 Monocytes/100 WBC (Bld) 11.3 % 0-10 [facility] Blood platelet mean volumeOr dered By: Fransisca Orlando on 05-11-2023 Platelet mean volume (Bld) [Entitic vol] 9.9 fL 6.2-12.0 [facility] Determination of erythrocyte mean corpuscular volume (MCV)Ordered By: Fransisca Orlando on 05-11-2023 MCV (RBC) [Entitic vol] 100.3 fL 81-99 [facility] Hematocrit Auto (Bld) [Volum e fraction]Ordered By: Fransisca Orlando on 05-11-2023 Hematocrit (Bld) [Volume fraction] 33.9 % 37-47 [facility] Hemoglobin in reticulocytes (mass per reticulocyte)Ordered By: [facility] Darion on 05-11-2023 Hemoglobin (Reticulocytes) [Entitic mass] 34.8 pg 30-35 [facility] Iron measurement (mass/mass) Ordered By: [facility] on 05-11-2023 Iron (Unsp spec) [Mass/Mass] 137 ug/dL 50-170 [facility] Laboratory - Hematology and Cell countsOrdered By: [facility] on 05-11-2023 Erythrocyte distribution width (RBC) [Entitic vol] 47.0 fL 35.1-43.9 [facility] Erythrocyte distribution width (RBC) [Ratio] 12.7 % 11.6-14.6 [facility] Immature granulocytes/100 WBC (Bld) 0.300 % 0.0-0.9 [facility] Comment on above: IG% - Immature Granu locytes (promyelocytes, myelocytes and metamyelocytes) > 1% indicates that a LEFT SHIFT is Present. MCH (RBC) [Entitic mass] 34.0 pg 27.0-32.0 [facility] Nucleated RBC/100 WBC (Bld) [Ratio] 0 % 0-5 [facility] MCHC Auto (RBC) [Mass/Vol]Or dered By: Fransisca Orlando on 05-11-2023 MCHC (RBC) [Mass/Vol] 33.9 g/dL 32-36 [facility] No Panel InformationOrdered By: Fransisca Orlando on 05-11-2023 Immature Reticulocyte Fraction 10.40 % 3.00-15.90 [facility] Reticulocyte Count 1.96 % 0.5-1.5 [facility] Total Iron Binding Capacity 213 ug/dL 250-450 [facility] Platelets bldOrdered By: Kenan Orlando on 05-11-2023 Platelets (Bld) [#/Vol] 167 10*3/uL 150-450 [facility] Serum or plasma ferritin pineda surement (mass/volume)Ordered By: Fransisca Orlando on 05-11-2023 Ferritin [Mass/Vol] 82 ng/mL 8-252 [facility] Serum or plasma iron saturat ion measurement (mass fraction)Ordered By: Fransisca Orlando on 05-11-2023 Iron saturation [Mass fraction] 64.3 % 15.0-55.0 [facility] Laboratory - Chemistry and C hemistry - challengeOrdered By: Fransisca Orlando on 11-03-2022 Cobalamin (Vitamin B12) [Mass/Vol] 370 pg/mL [facility] - Chemistry and C hemistry - challengeOrdered By: Ingrid Girmaldo on 08-11-2022 Cobalamin (Vitamin B12) [Mass/Vol] 775 pg/mL [facility] Serum or plasma folate measu rement (mass/volume)Ordered By: Ingrid Grimaldo on 08-11-2022 Folate [Mass/Vol] 12.70 ng/mL 3.1-55.4 [facility] Culture, urineOrdered By: Dr Sadia Trevizo on 08-08-2022 Bacteria identified Cx Nom (U) Escherichia coli [facility] Basophil percentageOrdered B y: Dr. Arce on 08-06-2022 Chloride [Moles/Vol] 100 mmol/L 98-107 [facility] Glucose [Mass/Vol] 100 mg/dL 74-106 [facility] Comment on above: Fasting Glucose resu lt from 100 to 125 mg/dL suggests IMPAIRED HOMEOSTASIS per A.D.A. criteria. Potassium [Moles/Vol] 4.1 mmol/L 3.5-5.1 [facility] Sodium [Moles/Vol] 136 mmol/L 136-145 [facility] WBC (Bld) [#/Vol] 7.0 10*3/uL 4.4-11.0 [facility] Basophil percentageOrdered B y: Dr. Trevizo on 08-06-2022 Basophil percentage 25-50 SEEN /hpf 0-5 [facility] Bilirubin Test strip Ql (U)O rdered By: Dr. Trevizo on 08-06-2022 Bilirubin Ql (U) Negative Negative [facility] Blood erythrocytes count (nu mber/volume)Ordered By: Dr. Arce on 08-06-2022 RBC (Bld) [#/Vol] 3.48 10*6/uL 4.2-5.4 [facility] Blood hemoglobin measurement (mass/volume)Ordered By: Dr. Arce on 08-06-2022 Hemoglobin (Bld) [Mass/Vol] 11.3 g/dL 12.0-15.0 [facility] Blood platelet mean volumeOr dered By: Dr. Arce on 08-06-2022 Platelet mean volume (Bld) [Entitic vol] 9.8 fL 6.2-12.0 [facility] Determination of erythrocyte mean corpuscular volume (MCV)Ordered By: Dr. Arce on 08-06-2022 MCV (RBC) [Entitic vol] 100.3 fL 81-99 [facility] Hematocrit Auto (Bld) [Volum e fraction]Ordered By: Dr. Arce on 08-06-2022 Hematocrit (Bld) [Volume fraction] 34.9 % 37-47 [facility] Ketones Test strip Ql (U)Ord ered By: Dr. Trevizo on 08-06-2022 Ketones Ql (U) Negative Negative [facility] Laboratory - Chemistry and C hemistry - challengeOrdered By: Dr. Arce on 08-06-2022 CO2 [Moles/Vol] 32.0 mmol/L 21.0-32.0 [facility] Urea nitrogen/Creatinine [Mass ratio] 28.1 mg/mg 10-20 [facility] Laboratory - Hematology and Cell countsOrdered By: Dr. Arce on 08-06-2022 Erythrocyte distribution width (RBC) [Entitic vol] 49.0 fL 35.1-43.9 [facility] Erythrocyte distribution width (RBC) [Ratio] 13.3 % 11.6-14.6 [facility] MCH (RBC) [Entitic mass] 32.5 pg 27.0-32.0 [facility] MCHC Auto (RBC) [Mass/Vol]Or dered By: Dr. Arce on 08-06-2022 MCHC (RBC) [Mass/Vol] 32.4 g/dL 32-36 [facility] Mucus LM Ql (Urine sed)Order ed By: Dr. Trevizo on 08-06-2022 Mucus Ql (Urine sed) 0 SEEN /hpf [facility] Nitrite Test strip Ql (U)Ord ered By: Dr. Trevizo on 08-06-2022 Nitrite Ql (U) Positive Negative [facility] No Panel InformationOrdered By: Dr. Arce on 08-06-2022 Estimated GFR (MDRD) Amer 208 mL/min >60 [facility] Comment on above: GFR Calc Estimated GFR (MDRD) Non-Af Amer 172 mL/min >60 [facility] Comment on above: Non- GFR Calc Thyroid Stimulating Hormone (TSH) 1.03 uIU/mL 0.358-3.74 [facility] Platelets bldOrdered By: Dr. Arce on 08-06-2022 Platelets (Bld) [#/Vol] 269 10*3/uL 150-450 [facility] Protein Test strip Ql (U)Ord ered By: Dr. Trevizo on 08-06-2022 Protein Ql (U) 30 mg/dl Negative [facility] Serum or plasma calcium cedric urement (mass/volume)Ordered By: Dr. Arce on 08-06-2022 Calcium [Mass/Vol] 8.9 mg/dL 8.5-10.1 [facility] Serum or plasma creatinine m easurement (mass/volume)Ordered By: Dr. Arce on 08-06-2022 Creatinine [Mass/Vol] 0.39 mg/dL 0.55-1.02 [facility] Comment on above: The validity of the calculated GFR & GFRAA in patients over 70 years has not been determined. Clinical correlation is essential. Serum or plasma urea nitroge n measurement (mass/volume)Ordered By: Dr. Arce on 08-06-2022 Urea nitrogen [Mass/Vol] 11 mg/dL 7-18 [facility] Squamous epithelial cells de tection in urine sediment by light microscopyOrdered By: Dr. Trevizo on 08-06-2022 Epithelial cells.squamous LM Ql (Urine sed) 0 SEEN /hpf 5-10 [facility] Thin prep Papanicolaou smear with manual screeningOrdered By: Dr. Arce on 08-06-2022 Thin prep Papanicolaou smear with manual screening 4 5-15 [facility] Urine blood detectionOrdered By: Dr. Trevizo on 08-06-2022 RBC Ql (U) 50 /ul Negative [facility] RBC Ql (U) 10-25 SEEN /hpf 0-5 [facility] Urine clarityOrdered By: Dr. Trevizo on 08-06-2022 Clarity (U) Cloudy Clear [facility] Urine color determinationOrd ered By: Dr. Trevizo on 08-06-2022 Color (U) Yellow Yellow [facility] Urine glucose detectionOrder ed By: Dr. Trevizo on 08-06-2022 Glucose Ql (U) Normal mg/dl Normal [facility] Urine leukocyte esterase det ection by dipstickOrdered By: Dr. Trevizo on 08-06-2022 Leukocyte esterase Test strip Ql (U) 500 /ul Negative [facility] Urine pHOrdered By: Dr. Wadsworth iff on 08-06-2022 pH (U) 7.0 [pH] 5.0 - 8.0 [facility] Urine sediment bacteria coun t by microscopy (number/high power field)Ordered By: Dr. Trevizo on 08-06-2022 Bacteria LM.HPF (Urine sed) [#/Area] 3 /[HPF] None Seen [facility] Urine specific gravity measu rementOrdered By: Dr. Trevizo on 08-06-2022 Specific gravity (U) [Rel density] 1.005 1.002-1.030 [facility] Urobilinogen Auto test strip Ql (U)Ordered By: Dr. Trevizo on 08-06-2022 Urobilinogen Ql (U) Normal mg/dl Normal [facility] Absolute lymphocyte countOrd ered By: Stef Ewing on 06-04-2022 Lymphocytes Auto (Unsp spec) [#/Vol] 0.87 10*3/uL 0.83-4.51 [facility] Albumin Elph [Mass/Vol]Order ed By: Stef Ewing on 06-04-2022 Albumin [Mass/Vol] 4.0 g/dL 2.9-4.4 [facility] Basophil percentageOrdered B y: Stef Ewing on 06-04-2022 Basophils/100 WBC (Bld) 0.5 % 0-1 [facility] Eosinophils/100 WBC (Bld) 1.6 % 0-5 [facility] LDH [Catalytic activity/Vol] 191 U/L 84-246 [facility] Neutrophils (Bld) [#/Vol] 3.1 10*3/uL 2.0-7.7 [facility] Neutrophils/100 WBC (Bld) 71.4 % 47-70 [facility] WBC (Bld) [#/Vol] 4.3 10*3/uL 4.4-11.0 [facility] Blood erythrocytes count (nu mber/volume)Ordered By: Stef Ewing on 06-04-2022 RBC (Bld) [#/Vol] 3.58 10*6/uL 4.2-5.4 [facility] Blood hemoglobin measurement (mass/volume)Ordered By: Stef Ewing on 06-04-2022 Hemoglobin (Bld) [Mass/Vol] 12.1 g/dL 12.0-15.0 [facility] Blood lymphocytes/100 leukoc ytesOrdered By: Stef Ewing on 06-04-2022 Lymphocytes/100 WBC (Bld) 20.1 % 19-41 [facility] Blood monocytes/100 leukocyt esOrdered By: Stef Ewing on 06-04-2022 Monocytes/100 WBC (Bld) 6.2 % 0-10 [facility] Blood platelet mean volumeOr dered By: Stef Ewing on 06-04-2022 Platelet mean volume (Bld) [Entitic vol] 9.8 fL 6.2-12.0 [facility] Determination of erythrocyte mean corpuscular volume (MCV)Ordered By: Stef Ewing on 06-04-2022 MCV (RBC) [Entitic vol] 101.7 fL 81-99 [facility] Hematocrit Auto (Bld) [Volum e fraction]Ordered By: Stef Ewing on 06-04-2022 Hematocrit (Bld) [Volume fraction] 36.4 % 37-47 [facility] Hemoglobin in reticulocytes (mass per reticulocyte)Ordered By: Stef Ewing on 06-04-2022 Hemoglobin (Reticulocytes) [Entitic mass] 35.8 pg 30-35 [facility] Interpretation of serum or p lasma protein pattern by immunofixation (narrative resultOrdered By: Stef Ewing on 06-04-2022 Protein Fractions Immunofixation Xavier [Interp] See comment [facility] Comment on above: Result: Not Observed Iron measurement (mass/mass) Ordered By: Stef Ewing on 06-04-2022 Iron (Unsp spec) [Mass/Mass] 147 ug/dL 50-170 [facility] Laboratory - Hematology and Cell countsOrdered By: Stef Ewing on 06-04-2022 Erythrocyte distribution width (RBC) [Entitic vol] 49.3 fL 35.1-43.9 [facility] Erythrocyte distribution width (RBC) [Ratio] 13.2 % 11.6-14.6 [facility] Immature granulocytes/100 WBC (Bld) 0.200 % 0.0-0.9 [facility] Comment on above: IG% - Immature Granu locytes (promyelocytes, myelocytes and metamyelocytes) > 1% indicates that a LEFT SHIFT is Present. MCH (RBC) [Entitic mass] 33.8 pg 27.0-32.0 [facility] Nucleated RBC/100 WBC (Bld) [Ratio] 0 % 0-5 [facility] MCHC Auto (RBC) [Mass/Vol]Or dered By: Stef Ewing on 02-01-2023 MCHC (RBC) [Mass/Vol] 33.2 g/dL 32-36 [facility] No Panel InformationOrdered By: Stef Ewing on 06-04-2022 Addendum Document Comment . [facility] Comment on above: Protein electrophore sis scan will follow via computer,mail, or membership advisor delivery. Haptoglobin 60 mg/dL 42-346 [facility] Comment on above: Performed at: [place] [id number] Director: Martín Hobbs PhD, Phone: [phone] Immature Reticulocyte Fraction 12.90 % 3.00-15.90 [facility] Reticulocyte Count 1.89 % 0.5-1.5 [facility] Total Iron Binding Capacity 280 ug/dL 250-450 [facility] Platelets bldOrdered By: Kt Ewing on 06-04-2022 Platelets (Bld) [#/Vol] 218 10*3/uL 150-450 [facility] Serum [id number] measu rement by electrophoresisOrdered By: Stef Ewing on 06-04-2022 Alpha 1 globulin Elph [Mass/Vol] 0.2 g/dL 0.0-0.4 [facility] Alpha 1 globulin Elph [Mass/Vol] 0.5 g/dL 0.4-1.0 [facility] Serum globulin measurement ( mass/volume)Ordered By: Stef Ewing on 06-04-2022 Globulin (S) [Mass/Vol] 2.5 g/dL 2.2-3.9 [facility] Serum or plasma IgA measurem ent (mass/volume)Ordered By: Stef Ewing on 06-04-2022 IgA [Mass/Vol] 178 mg/dL 64-422 [facility] Serum or plasma IgG measurem ent (mass/volume)Ordered By: Stef Ewing on 06-04-2022 IgG [Mass/Vol] 999 mg/dL 586-1602 [facility] Serum or plasma IgM measurem ent (mass/volume)Ordered By: Stef Ewing on 06-04-2022 IgM [Mass/Vol] 85 mg/dL 26-217 [facility] Serum or plasma beta globuli n measurement by electrophoresis (mass/volume)Ordered By: Stef Ewing on 06-04-2022 Beta globulin Elph [Mass/Vol] 0.9 g/dL 0.7-1.3 [facility] Serum or plasma ferritin pineda surement (mass/volume)Ordered By: Stef Ewing on 06-04-2022 Ferritin [Mass/Vol] 13 ng/mL 8-252 [facility] Serum or plasma gamma globul in measurement by electrophoresis (mass/volume)Ordered By: Stef Ewing on 06-04-2022 Gamma globulin Elph [Mass/Vol] 0.9 g/dL 0.4-1.8 [facility] Serum or plasma immunoelectr ophoresis interpretation (nominal result)Ordered By: Stef Ewing on 06-04-2022 Interpretation IEP [Interp] Comment . [facility] Comment on above: No monoclonality det ected. Thin prep Papanicolaou smear with manual screeningOrdered By: Stef Ewing on 06-04-2022 Thin prep Papanicolaou smear with manual screening 1.7 0.7-1.7 [facility] Total protein bloodOrdered B y: Stef Ewing on 06-04-2022 Protein [Mass/Vol] 6.5 g/dL 6.0-8.5 [facility] Absolute lymphocyte countOrd ered By: Dr. Orlando on 05-06-2022 Lymphocytes Auto (Unsp spec) [#/Vol] 0.95 10*3/uL 0.83-4.51 [facility] Basophil percentageOrdered B y: Dr. Orlando on 05-06-2022 Basophils/100 WBC (Bld) 0.9 % 0-1 [facility] Eosinophils/100 WBC (Bld) 4.4 % 0-5 [facility] Neutrophils (Bld) [#/Vol] 2.0 10*3/uL 2.0-7.7 [facility] Neutrophils/100 WBC (Bld) 57.1 % 47-70 [facility] WBC (Bld) [#/Vol] 3.4 10*3/uL 4.4-11.0 [facility] Blood erythrocytes count (nu mber/volume)Ordered By: Dr. Orlando on 05-06-2022 RBC (Bld) [#/Vol] 3.49 10*6/uL 4.2-5.4 [facility] Blood hemoglobin measurement (mass/volume)Ordered By: Dr. Orlando on 05-06-2022 Hemoglobin (Bld) [Mass/Vol] 11.5 g/dL 12.0-15.0 [facility] Blood lymphocytes/100 leukoc ytesOrdered By: Dr. Orlando on 05-06-2022 Lymphocytes/100 WBC (Bld) 27.9 % 19-41 [facility] Blood monocytes/100 leukocyt esOrdered By: Dr. Orlando on 05-06-2022 Monocytes/100 WBC (Bld) 9.4 % 0-10 [facility] Blood platelet mean volumeOr dered By: Dr. Orlando on 05-06-2022 Platelet mean volume (Bld) [Entitic vol] 9.6 fL 6.2-12.0 [facility] Determination of erythrocyte mean corpuscular volume (MCV)Ordered By: Dr. Orlando on 05-06-2022 MCV (RBC) [Entitic vol] 101.4 fL 81-99 [facility] Hematocrit Auto (Bld) [Volum e fraction]Ordered By: Dr. Orlando on 05-06-2022 Hematocrit (Bld) [Volume fraction] 35.4 % 37-47 [facility] Iron measurement (mass/mass) Ordered By: Dr. Orlando on 05-06-2022 Iron (Unsp spec) [Mass/Mass] 149 ug/dL 50-170 [facility] Laboratory - Hematology and Cell countsOrdered By: Dr. Orlando on 05-06-2022 Erythrocyte distribution width (RBC) [Entitic vol] 49.5 fL 35.1-43.9 [facility] Erythrocyte distribution width (RBC) [Ratio] 13.2 % 11.6-14.6 [facility] Immature granulocytes/100 WBC (Bld) 0.300 % 0.0-0.9 [facility] Comment on above: IG% - Immature Granu locytes (promyelocytes, myelocytes and metamyelocytes) > 1% indicates that a LEFT SHIFT is Present. MCH (RBC) [Entitic mass] 33.0 pg 27.0-32.0 [facility] Nucleated RBC/100 WBC (Bld) [Ratio] 0 % 0-5 [facility] MCHC Auto (RBC) [Mass/Vol]Or dered By: Dr. Orlando on 05-06-2022 MCHC (RBC) [Mass/Vol] 32.5 g/dL 32-36 [facility] No Panel InformationOrdered By: Dr. Orlando on 05-06-2022 Total Iron Binding Capacity 246 ug/dL 250-450 [facility] Platelets bldOrdered By: Dr. Orlando on 05-06-2022 Platelets (Bld) [#/Vol] 213 10*3/uL 150-450 [facility] Serum or plasma ferritin pineda surement (mass/volume)Ordered By: Dr. Orlando on 05-06-2022 Ferritin [Mass/Vol] 16 ng/mL 8-252 [facility] Serum or plasma iron saturat ion measurement (mass fraction)Ordered By: Dr. Orlando on 05-06-2022 Iron saturation [Mass fraction] 60.6 % 15.0-55.0 [facility] Absolute lymphocyte counton 02-06-2022 Lymphocytes Auto (Unsp spec) [#/Vol] 0.86 10*3/uL 0.83-4.51 [facility] Work Phone: Basophil percentageon 2021 Basophils/100 WBC (Bld) 0.6 % 0-1 [facility] Work Phone: Eosinophils/100 WBC (Bld) 4.7 % 0-5 [facility] Work Phone: Neutrophils (Bld) [#/Vol] 2.1 10*3/uL 2.0-7.7 [facility] Work Phone: Neutrophils/100 WBC (Bld) 61.5 % 47-70 [facility] Work Phone: WBC (Bld) [#/Vol] 3.4 10*3/uL 4.4-11.0 [facility] Work Phone: Blood erythrocytes count (nu mber/volume)on 02-06-2022 RBC (Bld) [#/Vol] 3.77 10*6/uL 4.2-5.4 [facility] Work Phone: Blood hemoglobin measurement (mass/volume)on 02-06-2022 Hemoglobin (Bld) [Mass/Vol] 10.7 g/dL 12.0-15.0 [facility] Work Phone: Blood lymphocytes/100 leukoc yteson 02-06-2022 Lymphocytes/100 WBC (Bld) 25.5 % 19-41 [facility] Work Phone: Blood monocytes/100 leukocyt eson 02-06-2022 Monocytes/100 WBC (Bld) 7.4 % 0-10 [facility] Work Phone: Blood platelet mean volumeon 02-06-2022 Platelet mean volume (Bld) [Entitic vol] 8.7 fL 6.2-12.0 [facility] Work Phone: Determination of erythrocyte mean corpuscular volume (MCV)on 02-06-2022 MCV (RBC) [Entitic vol] 89.1 fL 81-99 [facility] Work Phone: Hematocrit Auto (Bld) [Volum e fraction]on 02-06-2022 Hematocrit (Bld) [Volume fraction] 33.6 % 37-47 [facility] Work Phone: Hemoglobin in reticulocytes (mass per reticulocyte)Ordered By: Dr. Orlando on 02-06-2022 Hemoglobin (Reticulocytes) [Entitic mass] 34.5 pg 30-35 [facility] Iron measurement (mass/mass) on 02-06-2022 Iron (Unsp spec) [Mass/Mass] 180 ug/dL 50-170 [facility] Work Phone: Laboratory - Chemistry and C hemistry - challengeOrdered By: Dr. Orlando on 02-06-2022 Cobalamin (Vitamin B12) [Mass/Vol] 357 pg/mL 211-911 [facility] Laboratory - Hematology and Cell countsOrdered By: Dr. Orlando on 02-06-2022 Anisocytosis Ql (Bld) 1+ [facility] Laboratory - Hematology and Cell countson 02-06-2022 Erythrocyte distribution width (RBC) [Entitic vol] 87.0 fL 35.1-43.9 [facility] Work Phone: Erythrocyte distribution width (RBC) [Ratio] 28.3 % 11.6-14.6 [facility] Work Phone: [phone] Immature granulocytes/100 WBC (Bld) 0.300 % 0.0-0.9 [facility] Work Phone: Comment on above: IG% - Immature Granu locytes (promyelocytes, myelocytes and metamyelocytes) > 1% indicates that a LEFT SHIFT is Present. MCH (RBC) [Entitic mass] 28.4 pg 27.0-32.0 [facility] Work Phone: Nucleated RBC/100 WBC (Bld) [Ratio] 0 % 0-5 [facility] Work Phone: MCHC Auto (RBC) [Mass/Vol]on 02-06-2022 MCHC (RBC) [Mass/Vol] 31.8 g/dL 32-36 [facility] Work Phone: No Panel InformationOrdered By: Dr. Orlando on 02-06-2022 Immature Reticulocyte Fraction 10.80 % 3.00-15.90 [facility] Reticulocyte Count 1.16 % 0.5-1.5 [facility] No Panel Informationon 02-06 Total Iron Binding Capacity 293 ug/dL 250-450 [facility] Work Phone: No Panel InformationOrdered By: Fransisca Orlando on 02-06-2022 1+ [facility] Platelets bldon 02-06-2022 Platelets (Bld) [#/Vol] 188 10*3/uL 150-450 [facility] Work Phone: [phone] Serum or plasma ferritin pineda surement (mass/volume)on 02-06-2022 Ferritin [Mass/Vol] 14 ng/mL 8-252 [facility] Work Phone: Serum or plasma iron saturat ion measurement (mass fraction)on 02-06-2022 Iron saturation [Mass fraction] 61.4 % 15.0-55.0 [facility] Work Phone: Absolute lymphocyte counton 01-03-2022 Lymphocytes Auto (Unsp spec) [#/Vol] 0.87 10*3/uL 0.83-4.51 [facility] Work Phone: Basophil percentageon 2021 Basophils/100 WBC (Bld) 1.0 % 0-1 [facility] Work Phone: Eosinophils/100 WBC (Bld) 3.9 % 0-5 [facility] Work Phone: Neutrophils (Bld) [#/Vol] 2.7 10*3/uL 2.0-7.7 [facility] Work Phone: Neutrophils/100 WBC (Bld) 66.5 % 47-70 [facility] Work Phone: WBC (Bld) [#/Vol] 4.1 10*3/uL 4.4-11.0 [facility] Work Phone: Blood erythrocytes count (nu mber/volume)on 01-03-2022 RBC (Bld) [#/Vol] 4.13 10*6/uL 4.2-5.4 [facility] Work Phone: Blood hemoglobin measurement (mass/volume)on 01-03-2022 Hemoglobin (Bld) [Mass/Vol] 9.5 g/dL 12.0-15.0 [facility] Work Phone: Blood lymphocytes/100 leukoc yteson 01-03-2022 Lymphocytes/100 WBC (Bld) 21.1 % 19-41 [facility] Work Phone: Blood manual differential co mment interpretation (narrative result)on 01-03-2022 Manual differential comment Xavier (Bld) [Interp] SCANNED [facility] Work Phone: Blood monocytes/100 leukocyt eson 01-03-2022 Monocytes/100 WBC (Bld) 7.3 % 0-10 [facility] Work Phone: Blood platelet mean volumeon 01-03-2022 Platelet mean volume (Bld) [Entitic vol] 9.4 fL 6.2-12.0 [facility] Work Phone: Determination of erythrocyte mean corpuscular volume (MCV)on 01-03-2022 MCV (RBC) [Entitic vol] 79.4 fL 81-99 [facility] Work Phone: Hematocrit Auto (Bld) [Volum e fraction]on 01-03-2022 Hematocrit (Bld) [Volume fraction] 32.8 % 37-47 [facility] Work Phone: Hypochromatic red blood cell detectionon 01-03-2022 Hypochromia Ql (Bld) 3+ [facility] Work [facility]: Laboratory - Hematology and Cell countson 01-03-2022 Anisocytosis [facility]l (Bld) 2+ [facility]: [phone] Erythrocyte distribution width (RBC) [Entitic vol] 66.3 fL 35.1-43.9 [facility] Work Phone: [phone] Erythrocyte distribution width (RBC) [Ratio] 25.1 % 11.6-14.6 [facility] Work Phone: Immature granulocytes/100 WBC (Bld) 0.200 % 0.0-0.9 [facility] Work Phone: Comment on above: IG% - Immature Granu locytes (promyelocytes, myelocytes and metamyelocytes) > 1% indicates that a LEFT SHIFT is Present. MCH (RBC) [Entitic mass] 23.0 pg 27.0-32.0 [facility] Work Phone: Nucleated RBC/100 WBC (Bld) [Ratio] 0 % 0-5 [facility] Work Phone: [phone] MCHC Auto (RBC) [Mass/Vol]on 01-03-2022 MCHC (RBC) [Mass/Vol] 29.0 g/dL 32-36 [facility] Work Phone: Platelets bldon 01-03-2022 Platelets (Bld) [#/Vol] 216 10*3/uL 150-450 [facility] Work Phone: Albumin Elph [Mass/Vol]on Albumin [Mass/Vol] 3.8 g/dL 2.9-4.4 [facility] Work Phone: [phone] Atypical perinuclear antineu trophil cytoplasmic antibodies measurementon 12-27-2021 Neutrophil cytoplasmic Ab.perinuclear.atypical IF (S) [Titer] <1:20 titer Neg:<1:20 [facility] Work Phone: Comment on above: The atypical pANCA p attern has been observed in asignificant percentage of patients with ulcerative colitis,primary sclerosing cholangitis and autoimmune hepatitis. Basophil percentageon 2021 Basophil percentage < 0.2 AI 0.0-0.9 [facility] Work Phone: Interpretation of serum or p lasma protein pattern by immunofixation (narrative resulton 12-27-2021 Protein Fractions Immunofixation Xavier [Interp] See comment [facility] Work Phone: Comment on above: Result: Not Observed Laboratory - Chemistry and C hemistry - challengeon 12-27-2021 Cobalamin (Vitamin B12) [Mass/Vol] 388 pg/mL 211-911 [facility] Work Phone: [phone] Free T4 [Mass/Vol] 0.95 ng/dL 0.76-1.46 [facility] Work Phone: No Panel Informationon 12-27 Addendum Document Comment . [facility] Work Phone: [phone] Comment on above: Protein electrophore sis scan will follow via computer,mail, or membership advisor delivery. Centromere B Antibody <0.2 AI 0.0-0.9 [facility] Work Phone: [phone] Endomysial IgA Antibody Negative Negative [facility] Work Phone: [phone] Free Triiodothyronine (T3) pg/dL 2.2 pg/mL 2.18-3.98 [facility] Work Phone: [phone] Immunoglobulin E 83 IU/mL 6-495 [facility] Work Phone: [phone] Comment on above: Performed at: [facility] [id number] Director: Martín Hobbs PhD, Phone: [phone] at: [address] [id number] Director: Eliel Hu MD, Phone: [phone] PROPERTY CLAIM REP Antibody 1.1 AI 0.0-0.9 [facility] Work Phone: [phone] Thyroid Stimulating Hormone (TSH) 1.85 uIU/mL 0.358-3.74 [facility] Work Phone: [phone] Serum DNA double strand anti body assay (units/volume)on 12-27-2021 DNA double strand Ab Qn (S) [IU]/mL 0-9 [facility] Work Phone: [phone] Comment on above: Negative <5 Equivoca l 5 - 9 Positive >9 Serum IgA measurement (units /volume)on 12-27-2021 IgA Qn (S) 198 mg/dL 87-352 [facility] Work Phone: [phone] Comment on above: Performed at: [facility] [address] [id number] Director: Martín Hobbs PhD, Phone: [phone] Serum Sharda-1 antibody assay (u nits/volume)on 12-27-2021 Sharda-1 extractable nuclear Ab Qn (S) <0.2 AI 0.0-0.9 [facility] Work Phone: [phone] Serum Scl-70 extractable nuc lear antibody assay (units/volume)on 12-27-2021 SCL-70 extractable nuclear Ab Qn (S) <0.2 AI 0.0-0.9 [facility] Work Phone: [phone] Serum Acuna extractable nucl ear antibody detectionon 12-27-2021 Acuna extractable nuclear Ab Ql (S) <0.2 AI 0.0-0.9 [facility] Work Phone: [phone] Serum cqflg-5-wfojszcy measu rement by electrophoresison 12-27-2021 Alpha 1 globulin Elph [Mass/Vol] 0.3 g/dL 0.0-0.4 [facility] Work Phone: [phone] Alpha 1 globulin Elph [Mass/Vol] 0.6 g/dL 0.4-1.0 [facility] Work Phone: [phone] Serum classic neutrophil cyt oplasmic antibody assay (units/volume)on 12-27-2021 Neutrophil cytoplasmic Ab.classic Qn (S) <1:20 titer Neg:<1:20 [facility] Work Phone: [phone] Serum globulin measurement ( mass/volume)on 12-27-2021 Globulin (S) [Mass/Vol] 3.1 g/dL 2.2-3.9 [facility] Work Phone: [phone] Serum or plasma IgA measurem ent (mass/volume)on 12-27-2021 IgA [Mass/Vol] 194 mg/dL 87-352 [facility] Work Phone: [phone] Serum or plasma IgG measurem ent (mass/volume)on 12-27-2021 IgG [Mass/Vol] 1080 mg/dL 586-1602 [facility] Work Phone: [phone] Serum or plasma IgM measurem ent (mass/volume)on 12-27-2021 IgM [Mass/Vol] 97 mg/dL 26-217 [facility] Work Phone: [phone] Serum or plasma actin IgG an tibody assay (units/volume)on 12-27-2021 Actin IgG Qn 4 Units 0-19 [facility] Work Phone: Comment on above: Negative 0 - 19 Weak positive 20 - 30 Moderate to strong positive >30 Actin Antibodies are found in 52-85% of patients with autoimmune hepatitis or chronic active hepatitis and in 22% of patients with primary biliary cirrhosis. Serum or plasma beta globuli n measurement by electrophoresis (mass/volume)on 12-27-2021 Beta globulin Elph [Mass/Vol] 1.0 g/dL 0.7-1.3 [facility] Work Phone: Serum or plasma gamma globul in measurement by electrophoresis (mass/volume)on 12-27-2021 Gamma globulin Elph [Mass/Vol] 1.1 g/dL 0.4-1.8 [facility] Work Phone: Serum or plasma immunoelectr ophoresis interpretation (nominal result)on 12-27-2021 Interpretation IEP [Interp] Comment . [facility] Work Phone: Comment on above: No monoclonality det ected. Serum perinuclear neutrophil cytoplasmic antibody titer by immunofluorescenceon 12-27-2021 Neutrophil cytoplasmic Ab.perinuclear IF (S) [Titer] <1:20 titer Neg:<1:20 [facility] Work Phone: Comment on above: The presence of posi tive fluorescence exhibiting P-ANCA orC-ANCA patterns alone is not specific for the diagnosis ofWegener's Granulomatosis (WG) or microscopic polyangiitis.Decisions about treatment should not be based solely onANCA IFA results. The [employer] Consensusrecommends follow up testing of positive sera with both AZ-3 and MPO-ANCA enzyme immunoassays. As many as 5% serumsamples are positive only by EIA. Ref. AM J Clin Mhbcdi2722;111:507-513. Serum tissue transglutaminas e IgA antibody assay (units/volume)on 12-27-2021 tTG IgA Qn (S) 3 U/mL 0-3 [facility] Work Phone: Comment on above: Negative 0 - 3 Weak Positive 4 - 10 Positive >10 Tissue Transglutaminase (tTG) has been identified as the endomysial antigen. Studies have demonstr- ated that endomysial IgA antibodies have over 99% specificity for gluten sensitive enteropathy. Thin prep Papanicolaou smear with manual screeningon 12-27-2021 Thin prep Papanicolaou smear with manual screening 1.3 0.7-1.7 [facility] Work Phone: Total protein bloodon 08-26- 2022 Protein [Mass/Vol] 6.9 g/dL 6.0-8.5 [facility] Work Phone: Absolute lymphocyte counton 12-26-2021 Lymphocytes Auto (Unsp spec) [#/Vol] 0.84 10*3/uL 0.83-4.51 [facility] Work Phone: Basophil percentageon 2021 Basophils/100 WBC (Bld) 0.8 % 0-1 [facility] Work Phone: Chloride [Moles/Vol] 104 mmol/L 98-107 [facility] Work Phone: Eosinophils/100 WBC (Bld) 9.7 % 0-5 [facility] Work Phone: Glucose [Mass/Vol] 93 mg/dL 74-106 [facility] Work Phone: Neutrophils (Bld) [#/Vol] 1.2 10*3/uL 2.0-7.7 [facility] Work Phone: Neutrophils/100 WBC (Bld) 45.7 % 47-70 [facility] Work Phone: Potassium [Moles/Vol] 3.9 mmol/L 3.5-5.1 [facility] Work Phone: Sodium [Moles/Vol] 138 mmol/L 136-145 [facility] Work Phone: WBC (Bld) [#/Vol] 2.6 10*3/uL 4.4-11.0 [facility] Work Phone: Blood erythrocytes count (nu mber/volume)on 12-26-2021 RBC (Bld) [#/Vol] 2.76 10*6/uL 4.2-5.4 [facility] Work Phone: Blood hemoglobin measurement (mass/volume)on 12-26-2021 Hemoglobin (Bld) [Mass/Vol] 5.4 g/dL 12.0-15.0 [facility] Work Phone: Comment on above: CRITICAL VALUE VERIF IED. CALLED TO EFE ENAMORADO WITH DR. ARCE12/26/21 1035 Jennifer Fulton.RESULTS READ BACK BY SAME . Blood lymphocytes/100 leukoc yteson 12-26-2021 Lymphocytes/100 WBC (Bld) 32.6 % 19-41 [facility] Work Phone: [phone] Blood manual differential co mment interpretation (narrative result)on 12-26-2021 Manual differential comment Xavier (Bld) [Interp] SCANNED [facility] Work Phone: [phone] Blood monocytes/100 leukocyt eson 12-26-2021 Monocytes/100 WBC (Bld) 11.2 % 0-10 [facility] Work Phone: [phone] Blood platelet mean volumeon 12-26-2021 Platelet mean volume (Bld) [Entitic vol] 10.4 fL 6.2-12.0 [facility] Work Phone: [phone] Blood schistocytes detection by light microscopyon 12-26-2021 Schistocytes LM Ql (Bld) 1+ [facility] Work Phone: [phone] Determination of erythrocyte mean corpuscular volume (MCV)on 12-26-2021 MCV (RBC) [Entitic vol] 71.4 fL 81-99 [facility] Work Phone: [phone] Hematocrit Auto (Bld) [Volum e fraction]on 12-26-2021 Hematocrit (Bld) [Volume fraction] 19.7 % 37-47 [facility] Work Phone: [phone] Hypochromatic red blood cell detectionon 12-26-2021 Hypochromia Ql (Bld) 4+ [facility] Work Phone: [phone] Iron measurement (mass/mass) on 12-26-2021 Iron (Unsp spec) [Mass/Mass] 9 ug/dL 50-170 [facility] Work Phone: [phone] Laboratory - Chemistry and C hemistry - challengeon 12-26-2021 CO2 [Moles/Vol] 29.0 mmol/L 21.0-32.0 [facility] Work Phone: [phone] Urea nitrogen/Creatinine [Mass ratio] 25.4 mg/mg 10-20 [facility] Work Phone: [phone] Laboratory - Hematology and Cell countson 12-26-2021 Erythrocyte distribution width (RBC) [Entitic vol] 54.2 fL 35.1-43.9 [facility] Work Phone: [phone] Erythrocyte distribution width (RBC) [Ratio] 21.2 % 11.6-14.6 [facility] Work Phone: [phone] Immature granulocytes/100 WBC (Bld) 0.000 % 0.0-0.9 [facility] Work Phone: [phone] Comment on above: IG% - Immature Granu locytes (promyelocytes, myelocytes and metamyelocytes) > 1% indicates that a LEFT SHIFT is Present. MCH (RBC) [Entitic mass] 19.6 pg 27.0-32.0 [facility] Work Phone: [phone] Nucleated RBC/100 WBC (Bld) [Ratio] 0 % 0-5 [facility] Work Phone: [phone] MCHC Auto (RBC) [Mass/Vol]on 12-26-2021 MCHC (RBC) [Mass/Vol] 27.4 g/dL 32-36 [facility] Work Phone: [phone] Panel Informationon 12-26 Total Iron Binding Capacity 413 ug/dL 250-450 [facility] Work Phone: [phone] Estimated GFR (MDRD) Amer 167 mL/min >60 [facility] Work Phone: [phone] Comment on above: GFR Calc Estimated GFR (MDRD) Non-Af Amer 138 mL/min >60 [facility] Work Phone: [phone] Comment on above: Non- GFR Calc Thyroid Stimulating Hormone (TSH) 3.23 uIU/mL 0.358-3.74 [facility] Work Phone: [phone] Platelets bldon 12-26-2021 Platelets (Bld) [#/Vol] 180 10*3/uL 150-450 [facility] Work Phone: Review by pathologiston 12-03 Pathologist review Xavier (Unsp spec) [Interp] September aayush [facility] Work Phone: [phone] Pathologist review Xavier (Unsp spec) [Interp] Reviewed [facility] Work Phone: [phone] Comment on above: Previous reported re sult: Cecile looney Edited by: MG on 12/27/21:1511Leukopenia and neutropenia. Severe Microcytic anemia.Clinical correlation necessary.Navneet Henriquez M.D. 12/27/21 AMENDED REPORT 12/27/21 1511 PATH REV previously reported as: September aayush Serum or plasma calcium cedric urement (mass/volume)on 12-26-2021 Calcium [Mass/Vol] 7.8 mg/dL 8.5-10.1 [facility] Work Phone: [phone] Serum or plasma creatinine m easurement (mass/volume)on 12-26-2021 Creatinine [Mass/Vol] 0.47 mg/dL 0.55-1.02 [facility] Work Phone: Comment on above: The validity of the calculated GFR & GFRAA in patients over 70 years has not been determined. Clinical correlation is essential. Serum or plasma ferritin pineda surement (mass/volume)on 12-26-2021 Ferritin [Mass/Vol] 4 ng/mL 8-252 [facility] Work Phone: [phone] Serum or plasma urea nitroge n measurement (mass/volume)on 12-26-2021 Urea nitrogen [Mass/Vol] 12 mg/dL 7-18 [facility] Work Phone: [phone] Thin prep Papanicolaou smear with manual screeningon 12-26-2021 Thin prep Papanicolaou smear with manual screening 2+ [facility] Work Phone: [phone] Thin prep Papanicolaou smear with manual screening 5 5-15 [facility] Work Phone: No Panel Informationon 10-25 Vitamin D 25-Hydroxy 63.1 ng/mL [facility] Work Phone: Comment on above: Vitamin D 25(OH) Sta tus Range Deficiency <20 ng/mL (50nmol/L) Insufficiency 20 - 30 ng/mL (50 - 75 nmol/L) Sufficiency 30 - 100 ng/mL (75 - 250 nmol/L) Toxicity >100 ng/mL (>250 nmol/L) Basophil percentageon 2021 Basophil percentage < 0.6 mg/dL 0.55-1.02 [facility] Work Phone: No Panel Informationon 05-15 Bedside Estimated GFR (eGFR) > 60.0000 mL/min >60 [facility] Work Phone: Bacteria identified Anaer cx Nom (Unsp spec)on 04-30-2021 Anaerobic microbial culture No anaerobic bacteria isolated. [facility] Work Phone: Bacteria identified Cx Nom ( Wound)on 04-30-2021 Wound Culture Staphylococcus warneri [facility] Work Phone: Gram stain for investigation of transfusion reactionon 04-30-2021 Microscopic observation Gram stain Nom (Unsp spec) [facility] Work Phone: NMO/[id number]-OaP FACS Ass ay, BldOrdered By: Gi Frances on 10-09-2020 NMO/AQP4 FACS Negative Negative [facility] Comment on above: Recommend repeat gilmar ting in 6 months if clinical suspicion is high. Negative result can occur in the setting of immunosuppression. ADDITIONAL INFORMATION This test was developed and its performance characteristics determined by [facility] in a manner consistent with CLIA requirements. This test has not been cleared or approved by the U.S. Food and Drug Administration. Test Performed by: [facility] [address] [address] Corporate Scheduler: Ric Lantigua M.D. Ph.D.; CLIA# [id number] [facility] MOG FACS,SOrdered By: Aileen Frances on 10-08-2020 MOG FACS, S Negative Negative [facility] Comment on above: No informative autoa ntibodies were detected in this evaluation. A negative result does not preclude a diagnosis of an inflammatory CHIEF METER READER demyelinating disorder. ADDITIONAL INFORMATION This test was developed and its performance characteristics determined by [facility] in a manner consistent with CLIA requirements. This test has not been cleared or approved by the U.S. Food and Drug Administration. Test Performed by: [facility] [place] [address] Corporate Scheduler: Ric Lantigua M.D. Ph.D.; CLIA# [id number] [facility] Comprehensive metabolic 2000 panelOrdered By: Gi Frances on 10-04-2020 Albumin [Mass/Vol] 3.9 g/dL 3.2 - 5.2 g/dL [facility] ALP [Catalytic activity/Vol] 50 U/L 40 - 150 U/L [facility] ALT [Catalytic activity/Vol] 11 U/L 0 - 40 U/L [facility] Anion gap [Moles/Vol] 12 mmol/L 10 - 2 0 mmol/L [facility] AST [Catalytic activity/Vol] 17 U/L 0 - 45 U/L [facility] Bilirubin [Mass/Vol] mg/dL 0.0 - 1 .3 mg/dL [facility] Calcium [Mass/Vol] 9.2 mg/dL 8.4 - 10. 2 mg/dL [facility] Chloride [Moles/Vol] 101 mmol/L 98 - 10 8 mmol/L [facility] Creatinine [Mass/Vol] 0.42 mg/dL Low 0.60 - 1.20 [facility] GFR/1.73 sq M.predicted CKD-EPI (S/P/Bld) [Vol rate/Area] 105 >=60 mL/min/1.73 m2 [facility] Glucose [Mass/Vol] 92 mg/dL 65 - 99 mg/dL [facility] HCO3 [Moles/Vol] 30 mmol/L 21 - 32 mmol/L [facility] Interpretation and review of laboratory results Abnormal [facility] Potassium [Moles/Vol] 4.4 mmol/L 3.5 - 5.1 mmol/L [facility] Protein [Mass/Vol] 6.0 g/dL 6.0 - 8.0 g/dL [facility] Sodium [Moles/Vol] 139 mmol/L 135 - 145 mmol/L [facility] Urea nitrogen [Mass/Vol] 9 mg/dL 8 - 25 mg/dL [facility] Urea nitrogen/Creatinine [Mass ratio] 21.4 mg/mg High [facility] The eGFR should be used for monitoring renal function only and not for medication dosing. [facility] MR CERVICAL SPINE WITH AND W [...] narrowing at multiple levels as described above. [employer] Workstation ID: [id number] Dictated by: PADMINI US on ThuOct 04, 2020 9:23:23 PM EDT Transcribed by: KAY THOMPSON on ThuOct 04, 2020 10:02:37 PM EDT Finalized by: PADMINI US on ThuOct 05, 2020 7:06:01 AM EDT [facility] Comment on above: Order Comment: [...] disease. No spinal stenosis. No compression fractures. [employer] Workstation ID: [id number] Dictated by: PADMINI US on ThuOct 04, 2020 9:28:23 PM EDT Transcribed by: CHRISTOPHE RENDON on ThuOct 04, 2020 10:00:36 PM EDT Finalized by: PADMINI US on ThuOct 05, 2020 7:05:53 AM EDT Normal [facility] Comment on above: Order Comment: Injur y/Trauma or Illness?:Illness/Other How long have you had these symptoms (acute/chronic)?:Unknown Reason for exam?:Radiographic monitoring of thoracic transverse myelitis Type of Exam?:Unknown Additional signs and symptoms?:Radiographic monitoring of thoracic transverse myelitis No Panel InformationOrdered By: Gi Frances on 10-04-2020 Interpretation and review of laboratory results Normal [facility] TSH DL <= 0.005 mIU/L QnOrde red By: Gi Frances on 10-04-2020 TSH Qn 2.00 m[IU]/L [facility] VITAMIN D, TOTAL, 25-OHOrder ed By: Gi Frances on 10-04-2020 25-hydroxyvitamin D [Mass/Vol] 48 ng/mL 30 - 100 ng/mL [facility] Comment on above: Vitamin D status: Deficiency: <10 ng/mL Insufficiency: 10-30 ng/mL Sufficiency: 30-100 ng/mL Toxicity: >100 ng/mL Interpretation and review of laboratory results Normal [facility] Assay performed jessica Phillips CLIA methodology. [facility] Vitamin [id number] By: Gaurang Frances on 10-04-2020 Cobalamin (Vitamin B12) [Mass/Vol] 558 pg/mL 232 - 1245 pg/mL [facility] CT COMPARISON IMPORTOrdered By: Provider System on 09-10-2020 This order has been auto-finalized and does not contain a result. [facility] MR COMPARISON IMPORTOrdered By: Provider System on 09-10-2020 This order has been auto-finalized and does not contain a result. [facility] XR COMPARISON IMPORTOrdered By: Provider System on 09-10-2020 This order has been auto-finalized and does not contain a result. [facility] Lower GI hemoglobin IA Ql (S tl) Stool Occult Blood (JULIA) Positive [facility] Work Phone: Vital Signs Date Time Vital Sign Value Performing Clinician Facility 01-16-2025 11:26-0400 Diastolic blood pressure 89 mm[Hg] Dr. Casie Trevizo MD Work Phone: [facility] 01-16-2025 11:26-0400 Systolic blood pressure 102 mm[Hg] Dr. Casie Trevizo MD Work Phone: [facility] 01-16-2025 11:04-0400 Body height 154.[address] Casie Trevizo MD Work Phone: [facility] 01-16-2025 11:04-0400 Body mass index (BMI) [Ratio] 17.9 kg/m2 Dr. Casie Trevizo MD Work Phone: [facility] 01-16-2025 11:04-0400 Body temperature 97.2 [degF] Dr. Casie Trevizo MD Work Phone: [facility] 01-16-2025 11:04-0400 Body weight 43.[address] Casie Trevizo MD Work Phone: [facility] 01-16-2025 11:04-0400 Heart rate 64 /min Dr. Casie Trevizo MD Work Phone: [facility] 01-16-2025 11:04-0400 Respiratory rate 16 /min Dr. Casie Trevizo MD Work Phone: 8(734)411-679062 [place] [address] 01-16-2025 11:04-0400 SaO2% (BldA) [Mass fraction] 100 % Dr. Casie Trevizo MD Work Phone: 8(210)118-958772 [place] [address] 10-12-2024 10:53-0400 Body mass index (BMI) [Ratio] 16.9 kg/m2 Dr. Casie Trevizo MD Work Phone: 6(493)860-944872 [place] [address] 10-12-2024 10:53-0400 Body temperature 97.6 [degF] Dr. Casie Trevizo MD Work Phone: 6(204)359-131672 [place] [address] 10-12-2024 10:53-0400 Diastolic blood pressure 86 mm[Hg] Dr. Casie Trevizo MD Work Phone: 4(471)337-629672 [place] [address] 10-12-2024 10:53-0400 Heart rate 74 /min Dr. Casie Trevizo MD Work Phone: 0(078)836-555072 [place] [address] 10-12-2024 10:53-0400 Respiratory rate 18 /min Dr. Casie Trevizo MD Work Phone: 4(322)001-960572 [place] [address] 10-12-2024 10:53-0400 Systolic blood pressure 133 mm[Hg] Dr. Casie Trevizo MD Work Phone: 4(281)654-593572 [place] [address] 10-02-2024 00:38-0400 Body weight 40.[address] Casie Trevizo MD Work Phone: 2(732)294-115072 [place] [address] 09-28-2024 11:01-0400 Body mass index (BMI) [Ratio] 16.9 kg/m2 Dr. Casie Trevizo MD Work Phone: 8(784)241-247372 [place] [address] 09-28-2024 11:01-0400 Body temperature 97.4 [degF] Dr. Casie Trevizo MD Work Phone: 1(587)197-812372 [place] [address] 09-28-2024 11:01-0400 Diastolic blood pressure 65 mm[Hg] Dr. Casie Trevizo MD Work Phone: 5(831)430-775472 [place] [address] 09-28-2024 11:01-0400 Heart rate 61 /min Dr. Casie Trevizo MD Work Phone: [facility] 09-28-2024 11:01-0400 Respiratory rate 18 /min Dr. Casie Trevizo MD Work Phone: [facility] 09-28-2024 11:01-0400 Systolic blood pressure 113 mm[Hg] Dr. Casie Trevizo MD Work Phone: 4(031)666-921662 [place] [address] 09-01-2024 00:36-0400 Body weight 40.[address] Casie Trevizo MD Work Phone: 1(774)972-466062 [place] [address] 08-31-2024 10:34-0400 Body mass index (BMI) [Ratio] 16.9 kg/m2 Dr. Casie Trevizo MD Work Phone: 0(318)575-899772 [place] [address] 08-31-2024 10:34-0400 Body temperature 97.8 [degF] Dr. Casie Trevizo MD Work Phone: 1(650)969-295562 [place] [address] 08-31-2024 10:34-0400 Diastolic blood pressure 73 mm[Hg] Dr. Casie Trevizo MD Work Phone: 7(529)307-441662 [place] [address] 08-31-2024 10:34-0400 Heart rate 65 /min Dr. Casie Trevizo MD Work Phone: 9(401)143-833862 [place] [address] 08-31-2024 10:34-0400 Respiratory rate 18 /min Dr. Casie Trevizo MD Work Phone: 4(956)276-726562 [place] [address] 08-31-2024 10:34-0400 Systolic blood pressure 133 mm[Hg] Dr. Casie Trevizo MD Work Phone: 2(511)911-098762 [place] [address] 08-02-2024 00:45-0400 Body weight 40.[address] Casie Trevizo MD Work Phone: 0(241)202-320872 [place] [address] 07-27-2024 08:25-0400 Body mass index (BMI) [Ratio] 16.9 kg/m2 Dr. Casie Trevizo MD Work Phone: 4(991)924-216262 [place] [address] 07-27-2024 08:25-0400 Body temperature 97.6 [degF] Dr. Casie Trevizo MD Work Phone: [facility] 07-27-2024 08:25-0400 Diastolic blood pressure 76 mm[Hg] Dr. Casie Trevizo MD Work Phone: [facility] 07-27-2024 08:25-0400 Heart rate 74 /min Dr. Casie Trevizo MD Work Phone: [facility] 07-27-2024 08:25-0400 Respiratory rate 16 /min Dr. Casie Trevizo MD Work Phone: [facility] 07-27-2024 08:25-0400 Systolic blood pressure 149 mm[Hg] Dr. Casie Trevizo MD Work Phone: 2(581)638-422362 [place] [address] 07-05-2024 14:34-0500 Body height 154.[address] Casie Trevizo MD Work Phone: 8(078)246-402062 [place] [address] 07-05-2024 14:34-0500 Body temperature 98.6 [degF] Dr. Casie Trevizo MD Work Phone: [facility] 07-05-2024 14:34-0500 Diastolic blood pressure 72 mm[Hg] Dr. Casie Trevizo MD Work Phone: [facility] 07-05-2024 14:34-0500 Heart rate 77 /min Dr. Casie Trevizo MD Work Phone: [facility] 07-05-2024 14:34-0500 Respiratory rate 16 /min Dr. Casie Trevizo MD Work Phone: [facility] 07-05-2024 14:34-0500 SaO2% (BldA) [Mass fraction] 94 % Dr. Casie Trevizo MD Work Phone: [facility] 07-05-2024 14:34-0500 Systolic blood pressure 127 mm[Hg] Dr. Casie Trevizo MD Work Phone: [facility] 07-02-2024 01:12-0500 Body weight 40.[address] Casie Trevizo MD Work Phone: [facility] 06-29-2024 08:23-0500 Body mass index (BMI) [Ratio] 16.9 kg/m2 Dr. Casie Trevizo MD Work Phone: [facility] 06-29-2024 08:23-0500 Body temperature 98.1 [degF] Dr. Casie Trevizo MD Work Phone: 2(657)977-957562 [place] [address] 06-29-2024 08:23-0500 Diastolic blood pressure 78 mm[Hg] Dr. Casie Trevizo MD Work Phone: 5(766)806-284172 [address] 06-29-2024 08:23-0500 Heart rate 93 /min Dr. Casie Trevizo MD Work Phone: 2(402)886-305362 [place] [address] 06-29-2024 08:23-0500 Respiratory rate 20 /min Dr. Casie Trevizo MD Work Phone: 1(030)935-012462 [place] [address] 06-29-2024 08:23-0500 Systolic blood pressure 123 mm[Hg] Dr. Casie Trevizo MD Work Phone: 2(504)711-644362 [place] [address] 06-04-2024 01:56-0500 Body weight 40.[address] Casie Trevizo MD Work Phone: [facility] 11-16-2023 13:30-0400 Body weight 42.[address] Casie Trevizo MD Work Phone: [facility] 05-11-2023 11:05-0500 Diastolic blood pressure 64 mm[Hg] Dr. Casie Trevizo Work Phone: 3(607)613-968762 [place] [address] 05-11-2023 11:05-0500 Systolic blood pressure 138 mm[Hg] Dr. Casie Trevizo Work Phone: 6(436)765-682062 [place] [address] 05-11-2023 10:34-0500 Body height 154.[address] Casie Trevizo Work Phone: 4(319)042-801162 [place] [address] 05-11-2023 10:34-0500 Body mass index (BMI) [Ratio] 17.7 kg/m2 Dr. Casie Trevizo Work Phone: [facility] 05-11-2023 10:34-0500 Body temperature 97.1 [degF] Dr. Casie Trevizo Work Phone: [facility] 05-11-2023 10:34-0500 Body weight 42.[address] Casie Trevizo Work Phone: [facility] 05-11-2023 10:34-0500 Heart rate 67 /min Dr. Casie Trevizo Work Phone: [facility] 05-11-2023 10:34-0500 Respiratory rate 16 /min Dr. Casie Trevizo Work Phone: 4(652)576-411372 [address] 05-11-2023 10:34-0500 SaO2% (BldA) [Mass fraction] 98 % Dr. Casie Trevizo Work Phone: [facility] 03-23-2023 10:13-0500 Body temperature 97.8 [degF] Dr. Casie Trevizo Work Phone: [facility] 03-23-2023 10:13-0500 Diastolic blood pressure 64 mm[Hg] Dr. Casie Trevizo Work Phone: [facility] 03-23-2023 10:13-0500 Heart rate 60 /min Dr. Casie Trevizo Work Phone: [facility] 03-23-2023 10:13-0500 Respiratory rate 16 /min Dr. Casie Trevizo Work Phone: [facility] 03-23-2023 10:13-0500 SaO2% (BldA) [Mass fraction] 100 % Dr. Casie Trevizo Work Phone: [facility] 03-23-2023 10:13-0500 Systolic blood pressure 131 mm[Hg] Dr. Casie Trevizo Work Phone: [facility] 03-23-2023 08:58-0500 Body mass index (BMI) [Ratio] 18 kg/m2 Dr. Casie Trevizo Work Phone: [facility] 03-23-2023 08:58-0500 Body weight 43.[address] Casie Trevizo Work Phone: [facility] 11-17-2022 14:21-0400 Diastolic blood pressure 75 mm[Hg] Dr. Casie Trevizo Work Phone: [facility] 11-17-2022 14:21-0400 Heart rate 63 /min Dr. Casie Trevizo Work Phone: [facility] 11-17-2022 14:21-0400 Systolic blood pressure 145 mm[Hg] Dr. Casie Trveizo Work Phone: [facility] 11-17-2022 13:33-0400 Body mass index (BMI) [Ratio] 18.2 kg/m2 Dr. Casie Trevizo Work Phone: [facility] 11-17-2022 13:33-0400 Body temperature 96.9 [degF] Dr. Casie Trevizo Work Phone: [facility] 11-17-2022 13:33-0400 Respiratory rate 16 /min Dr. Casie Trevizo Work Phone: [facility] 11-17-2022 13:33-0400 SaO2% (BldA) [Mass fraction] 100 % Dr. Casie Trevizo Work Phone: [facility] 05-06-2022 10:33-0500 Body height 154.[address] Cara Arce Work Phone: [facility] 05-06-2022 10:33-0500 Body mass index (BMI) [Ratio] 18.2 kg/m2 Dr. Cara Arce Work Phone: [facility] 05-06-2022 10:33-0500 Body temperature 97.4 [degF] Dr. Cara Arce Work Phone: [facility] 05-06-2022 10:33-0500 Body weight 43.[address] Cara Arce Work Phone: 3(901)516-647159 [address] 05-06-2022 10:33-0500 Diastolic blood pressure 64 mm[Hg] Dr. Cara Arce Work Phone: 0(781)135-006708 [place] [address] 05-06-2022 10:33-0500 Heart rate 65 /min Dr. Cara Arce Work Phone: 9(563)209-717208 [place] [address] 05-06-2022 10:33-0500 Respiratory rate 16 /min Dr. Cara Arce Work Phone: 1(079)334-583308 [place] [address] 05-06-2022 10:33-0500 SaO2% (BldA) [Mass fraction] 96 % Dr. Cara Arce Work Phone: 8(227)311-455308 [place] [address] 05-06-2022 10:33-0500 Systolic blood pressure 110 mm[Hg] Dr. Cara Arce Work Phone: 7(161)435-867808 [place] [address] 03-06-2022 09:32-0400 Body temperature 97.6 [degF] Dr. Cara Arce Work Phone: 4(037)558-687608 [place] [address] 03-06-2022 09:32-0400 Diastolic blood pressure 81 mm[Hg] Dr. Cara Arce Work Phone: 6(227)628-458508 [place] [address] 03-06-2022 09:32-0400 Heart rate 77 /min Dr. Cara Arce Work Phone: 7(593)063-617308 [address] [place], [place] [address] 03-06-2022 09:32-0400 Respiratory rate 16 /min Dr. Cara Arce Work Phone: 0(127)724-331408 [place] [address] 03-06-2022 09:32-0400 SaO2% (BldA) [Mass fraction] 100 % Dr. Cara Arce Work Phone: 6(886)759-704359 [address] 03-06-2022 09:32-0400 Systolic blood pressure 128 mm[Hg] Dr. Cara Arce Work Phone: 5(298)145-965208 [place] [address] 03-06-2022 07:48-0400 Body height 154.[address] Cara Arce Work Phone: 4(784)846-479108 [place] [address] Work Phone: 03-06-2022 07:48-0400 Body mass index (BMI) [Ratio] 17.9 kg/m2 Dr. Cara Arce Work Phone: 4(578)887-643259 [address] 03-06-2022 07:48-0400 Body weight 43.[address] Cara Arce Work Phone: 9(822)889-002208 [place] [address] 02-19-2022 11:01-0400 Body height 154.[address] Cara Arce Work Phone: 3(066)726-529108 [place] [address] Work Phone: 02-06-2022 11:29-0400 Body mass index (BMI) [Ratio] 18.5 kg/m2 Dr. Cara Arce Work Phone: 5(979)342-732708 [place] [address] 02-06-2022 11:29-0400 Body temperature 97.7 [degF] Dr. Cara Arce Work Phone: 1(531)887-091808 [place] [address] 02-06-2022 11:29-0400 Body weight 44.[address] Cara Arce Work Phone: 9(724)209-545008 [place] [address] 02-06-2022 11:29-0400 Diastolic blood pressure 74 mm[Hg] Dr. Cara Arce Work Phone: 5(788)516-006708 [place] [address] 02-06-2022 11:29-0400 Heart rate 66 /min Dr. Cara Arce Work Phone: 6(637)242-680108 [place] [address] 02-06-2022 11:29-0400 Respiratory rate 16 /min Dr. Cara Arce Work Phone: 4(646)766-927208 [place] [address] 02-06-2022 11:29-0400 SaO2% (BldA) [Mass fraction] 95 % Dr. Cara Arce Work Phone: 2(272)600-435808 [place] [address] 02-06-2022 11:29-0400 Systolic blood pressure 147 mm[Hg] Dr. Cara Arce Work Phone: 3(916)306-073808 [place] [address] 01-09-2022 15:01-0400 Body mass index (BMI) [Ratio] 18.2 kg/m2 Dr. Cara Arce Work Phone: 9(511)400-884008 [place] [address] Work Phone: 01-09-2022 15:01-0400 Body temperature 97.8 [degF] Dr. Cara Arce Work Phone: 2(371)990-905508 [place] [address] Work Phone: 01-09-2022 15:01-0400 Body weight 43.[address] Cara Arce Work Phone: [facility] Work Phone: 01-09-2022 15:01-0400 Diastolic blood pressure 64 mm[Hg] Dr. Cara Arce Work Phone: [facility] Work Phone: 01-09-2022 15:01-0400 Heart rate 68 /min Dr. Cara Arce Work Phone: [facility] Work Phone: 01-09-2022 15:01-0400 Respiratory rate 15 /min Dr. Cara Arce Work Phone: [facility] Work Phone: 01-09-2022 15:01-0400 SaO2% (BldA) [Mass fraction] 98 % Dr. Cara Arce Work Phone: [facility] Work Phone: 01-09-2022 15:01-0400 Systolic blood pressure 123 mm[Hg] Dr. Cara Arce Work Phone: [facility] Work Phone: 12-27-2021 09:14-0400 Body height 154.[address] Cara Arce Work Phone: [facility] Work Phone: 12-26-2021 19:41-0400 Body temperature 98.2 [degF] [facility] Work Phone: 12-26-2021 19:41-0400 Diastolic blood pressure 84 mm[Hg] [facility] Work Phone: 12-26-2021 19:41-0400 Heart rate 73 /min [facility] Work Phone: 12-26-2021 19:41-0400 Respiratory rate 18 /min [facility] Work Phone: 12-26-2021 19:41-0400 SaO2% (BldA) [Mass fraction] 98 % [facility] Work Phone: 12-26-2021 19:41-0400 Systolic blood pressure 160 mm[Hg] [facility] Work Phone: 12-26-2021 11:34-0400 Body height 154.94 cm [facility] Work Phone: 12-26-2021 11:34-0400 Body mass index (BMI) [Ratio] 17.7 kg/m2 [facility] Work Phone: 12-26-2021 11:34-0400 Body weight 42.63 kg [facility] Work Phone: 12-10-2021 10:23-0400 Body mass index (BMI) [Ratio] 20 kg/m2 [facility] Work Phone: 12-10-2021 10:23-0400 Body temperature 96.8 [degF] [facility] Work Phone: 12-10-2021 10:23-0400 Body weight 46.66 kg [facility] Work Phone: 12-10-2021 10:23-0400 Diastolic blood pressure 57 mm[Hg] [facility] Work Phone: 12-10-2021 10:23-0400 Heart rate 71 /min [facility] Work Phone: 12-10-2021 10:23-0400 Respiratory rate 20 /min [facility] Work Phone: 12-10-2021 10:23-0400 Systolic blood pressure 123 mm[Hg] [facility] Work Phone: 09-17-2021 11:03-0400 Body mass index (BMI) [Ratio] 21.2 kg/m2 [facility] Work Phone: 09-17-2021 11:03-0400 Body temperature 97.4 [degF] [facility] Work Phone: 09-17-2021 11:03-0400 Diastolic blood pressure 51 mm[Hg] [facility] Work Phone: 09-17-2021 11:03-0400 Heart rate 65 /min [facility] Work Phone: 09-17-2021 11:03-0400 Respiratory rate 18 /min [facility] Work Phone: 09-17-2021 11:03-0400 Systolic blood pressure 134 mm[Hg] [facility] Work Phone: 09-01-2021 00:29-0400 Body weight 54.43 kg [facility] Work Phone: 08-27-2021 11:35-0400 Body mass index (BMI) [Ratio] 21.2 kg/m2 [facility] Work Phone: 08-27-2021 11:35-0400 Body temperature 97.5 [degF] [facility] Work Phone: 08-27-2021 11:35-0400 Diastolic blood pressure 71 mm[Hg] [facility] Work Phone: 08-27-2021 11:35-0400 Heart rate 74 /min [facility] Work Phone: 08-27-2021 11:35-0400 Respiratory rate 18 /min [facility] Work Phone: 08-27-2021 11:35-0400 Systolic blood pressure 128 mm[Hg] [facility] Work Phone: 08-02-2021 00:30-0400 Body weight 54.43 kg [facility] Work Phone: 07-30-2021 11:14-0400 Body mass index (BMI) [Ratio] 21.2 kg/m2 [facility] Work Phone: 07-30-2021 11:14-0400 Body temperature 97.5 [degF] [facility] Work Phone: 07-30-2021 11:14-0400 Diastolic blood pressure 63 mm[Hg] [facility] Work Phone: 07-30-2021 11:14-0400 Heart rate 72 /min [facility] Work Phone: 07-30-2021 11:14-0400 Respiratory rate 18 /min [facility] Work Phone: 07-30-2021 11:14-0400 Systolic blood pressure 122 mm[Hg] [facility] Work Phone: 07-02-2021 00:28-0500 Body weight 54.43 kg [facility] Work Phone: 07-01-2021 23:28-0500 Body weight 54.43 kg [facility] Work Phone: 06-25-2021 10:24-0500 Body mass index (BMI) [Ratio] 21.2 kg/m2 [facility] Work Phone: 06-25-2021 10:24-0500 Body temperature 97.6 [degF] [facility] Work Phone: 06-25-2021 10:24-0500 Diastolic blood pressure 54 mm[Hg] [facility] Work Phone: 06-25-2021 10:24-0500 Heart rate 70 /min [facility] Work Phone: 06-25-2021 10:24-0500 Respiratory rate 20 /min [facility] Work Phone: 06-25-2021 10:24-0500 Systolic blood pressure 121 mm[Hg] [facility] Work Phone: 06-24-2021 13:42-0500 Body temperature 98 [degF] [facility] Work Phone: 06-24-2021 13:42-0500 Diastolic blood pressure 58 mm[Hg] [facility] Work Phone: 06-24-2021 13:42-0500 Heart rate 56 /min [facility] Work Phone: 06-24-2021 13:42-0500 Respiratory rate 16 /min [facility] Work Phone: 06-24-2021 13:42-0500 SaO2% (BldA) [Mass fraction] 99 % [facility] Work Phone: 06-24-2021 13:42-0500 Systolic blood pressure 114 mm[Hg] [facility] Work Phone: 06-24-2021 10:17-0500 Body height 152.4 cm [facility] Work Phone: 06-24-2021 10:17-0500 Body mass index (BMI) [Ratio] 20.2 kg/m2 [facility] Work Phone: 06-24-2021 10:17-0500 Body weight 47.17 kg [facility] Work Phone: 06-03-2021 23:33-0500 Body weight 54.43 kg [facility] Work Phone: 05-28-2021 10:08-0500 Body mass index (BMI) [Ratio] 21.2 kg/m2 [facility] Work Phone: 05-28-2021 10:08-0500 Body temperature 97.5 [degF] [facility] Work Phone: 05-28-2021 10:08-0500 Diastolic blood pressure 54 mm[Hg] [facility] Work Phone: 05-28-2021 10:08-0500 Heart rate 64 /min [facility] Work Phone: 05-28-2021 10:08-0500 Respiratory rate 16 /min [facility] Work Phone: 05-28-2021 10:08-0500 Systolic blood pressure 90 mm[Hg] [facility] Work Phone: 05-03-2021 23:26-0500 Body weight 54.43 kg [facility] Work Phone: 04-30-2021 10:00-0500 Body mass index (BMI) [Ratio] 21.2 kg/m2 [facility] Work Phone: 04-30-2021 10:00-0500 Body temperature 97.3 [degF] [facility] Work Phone: 04-30-2021 10:00-0500 Diastolic blood pressure 40 mm[Hg] [facility] Work Phone: 04-30-2021 10:00-0500 Heart rate 64 /min [facility] Work Phone: 04-30-2021 10:00-0500 Respiratory rate 16 /min [facility] Work Phone: 04-30-2021 10:00-0500 Systolic blood pressure 134 mm[Hg] [facility] Work Phone: 04-02-2021 23:27-0500 Body weight 54.43 kg [facility] Work Phone: 10-04-2020 13:15-0400 Body height 160 cm [facility] [place][note 2] 10-04-2020 13:15-0400 Body mass index (BMI) [Ratio] 19.54 kg/m2 [facility] [place][note 2] 10-04-2020 13:15-0400 Body weight 50.03 kg [facility] [place][note 2] 10-04-2020 13:15-0400 Diastolic blood pressure 69 mm[Hg] [facility] [place][note 2] 10-04-2020 13:15-0400 Heart rate 69 /min [facility] [place][note 2] 10-04-2020 13:15-0400 Systolic blood pressure 147 mm[Hg] [facility] [place][note 2] 09-10-2020 11:02-0400 Body height 160 cm [facility] [place][note 2] 09-10-2020 11:02-0400 Body mass index (BMI) [Ratio] 19.89 kg/m2 [facility] [place][note 2] 09-10-2020 11:02-0400 Body weight 50.94 kg [facility] [place][note 2] 09-10-2020 11:02-0400 Diastolic blood pressure 74 mm[Hg] [facility] [place][note 2] 09-10-2020 11:02-0400 Heart rate 62 /min [facility] [place][note 2] 09-10-2020 11:02-0400 Systolic blood pressure 129 mm[Hg] [facility] [place][note 2] 03-16-2020 14:10-0500 Body Temperature 97.1 [degF] [facility] Work [facility]: Comment on above: Method: Infrared aprox weight 03-16-2020 14:10-0500 Body weight 63.5 kg [facility] Work [facility]: Comment on above: aprox weight 03-16-2020 14:10-0500 BP Diastolic 80 mm[Hg] [facility] Work Phone: Comment on above: Patient Position: Sitting; Cuff Location : Left Arm; Cuff Size: Standard aprox weight 03-16-2020 14:10-0500 BP Systolic 122 mm[Hg] [facility] Work Phone: Comment on above: Patient Position: Sitting; Cuff Location : Left Arm; Cuff Size: Standard aprox weight 03-16-2020 14:10-0500 Pulse (Heart Rate) 66 /min [facility] Work Phone: Comment on above: Pattern: Regular aprox weight 03-16-2020 14:10-0500 Pulse Oximetry 98 % [facility] Work Phone: Comment on above: Room air aprox weight 03-16-2020 14:10-0500 Respiratory Rate 16 /min [facility] Work Phone: Comment on above: Pattern: Unlabored aprox weight Encounters Encounter Date Encounter Type Care Provider Facility Start: 03-11-2025 ambulatory Jarred Jaramillo Facility :[facility] Start: 03-11-2025 Evaluation and management of inpatient Jarred Jaramillo Facility:[facility] Start: 01-16-2025 End: 01-16-2025 Admission to same day surgery center Dr. Star Corona MD -[facility] Start: 01-16-2025 End: 01-16-[address] Casie Trevizo MD Work Phone: -[facility] Start: 12-27-2024 End: 12-27-[address] Casie Trevizo MD Work Phone: -[facility] [place] Start: 12-27-2024 End: 12-27-[address] Ye Hoffman MD -[facility] [place] Work Phone: Start: 12-27-2024 End: 12-27-2024 ambulatory Ye Hoffman Facility:[facility] Start: 11-11-2024 ambulatory Casie Trevizo Facility: [facility] Start: 10-12-2024 Non-patient / Non-visit Evelyn Robertson [employer] -[facility] Start: 10-12-2024 End: 10-31-[address] Casie Trevizo MD Work Phone: [facility] Start: 10-12-2024 End: 10-31-2024 Discharged Recurring Evelyn Robertson [employer] -[facility] Work Phone: Start: 10-05-2024 Non-patient / Non-visit Evelyn Robertson [employer] -[facility] Start: 09-28-2024 Non-patient / Non-visit Evelyn Robertson [employer] -[facility] Start: 09-28-2024 Evelyn Robertson [employer] -A HF [facility] Start: 09-28-2024 End: 10-01-[address] Casie Trevizo MD Work Phone: [facility] Work Phone: Start: 09-28-2024 End: 10-01-2024 Discharged Recurring Evelyn Robertson [employer] -[facility] Work Phone: Start: 09-28-2024 End: 10-01-2024 Evelyn Robertson [employer] -[facility] Work Phone: Start: 09-21-2024 Non-patient / Non-visit Evelyn Robertson [employer] -[facility] Start: 09-21-2024 Evelyn Robertson [employer] -A [facility] Start: 09-14-2024 Non-patient / Non-visit Evelyn Robertson [employer] -[facility] Start: 09-14-2024 Evelyn Robertson [employer] -A HF WC Start: 09-07-2024 Non-patient / Non-visit Evelyn Robertson [employer] -[facility] Start: 09-07-2024 Evelyn Robertson [employer] -A [facility] Start: 08-31-2024 Non-patient / Non-visit Evelyn Robertson [employer] -[facility] Start: 08-31-2024 Evelyn Robertson [employer] -A HF WC Start: 08-31-2024 End: 08-31-20[facility] Start: 08-31-2024 End: 08-31-2024 Discharged Recurring Evelyn Robertson [employer] -[facility] Work Phone: Start: 08-31-2024 End: 08-31-2024 Evelyn Robertson [employer] -[facility] Work Phone: Start: 08-24-2024 Non-patient / Non-visit Evelyn Robertson [employer] -[facility] Start: 08-24-2024 Evelyn Robertson [employer] -A HF WC Start: 08-17-2024 Non-patient / Non-visit Evelyn Robertson [employer] -[facility] Start: 08-17-2024 Evelyn Robertson [employer] -A HF WC Start: 08-10-2024 Non-patient / Non-visit Evelyn Robertson [employer] -[facility] WC Start: 08-10-2024 Evelyn Robertson [employer] -A HF WC Start: 08-03-2024 Non-patient / Non-visit Evelyn Robertson [employer] -[facility] Start: 08-03-2024 Evelyn Marcelo [employer] -A HF [facility] Start: 07-27-2024 Non-patient / Non-visit Evelynasim BearRobertson [employer] -[facility] Start: 07-27-2024 Evelyn Robertson [employer] -A HF [facility] Start: 07-27-2024 End: 08-01-2024 ambulatory Casie Tej Trevizo Facility:[facility] Start: 07-27-2024 End: 08-01-2024 Discharged Recurring Evelynasim BearRobertson [employer] -[facility] Work Phone: Start: 07-27-2024 End: 08-01-2024 Evelyn Marcelo [employer] -[facility] Work Phone: Start: 07-21-2024 ambulatory Sukumar PALM Fa cility:[facility] Start: 07-21-2024 Registered Referred Sukumar Winkler Start: 07-21-2024 Sukumar Winkler Start: 07-20-2024 End: 07-20-2024 ambulatory Ally Duron NP Facility:[facility] Start: 07-20-2024 End: 07-20-2024 Patient encounter procedure Ally Duron [employer] -[facility] Work Phone: Start: 07-20-2024 End: 07-20-2024 Ally Duron [employer] -[facility] Work Phone: Start: 07-18-2024 ambulatory Aiden Bartholomew Facility:[facility] Start: 07-18-2024 Non-patient / Non-visit Dr. Aiden Bartholomew MD -[facility] Start: 07-18-2024 Dr. Aiden Bartholomew MD -[facility] Start: 07-14-2024 ambulatory Sukumar PALM Fa cility:[facility] Start: 07-14-2024 Registered Referred Sukumar Winkler Start: 07-14-2024 Sukumar Calderón Gasper Stephane Winkler Start: 07-13-2024 Non-patient / Non-visit Evelyn COLLINS -F [facility] Start: 07-13-2024 Evelyn BELLC -A [facility] Start: 07-12-2024 End: 07-12-[address] Casie Trevizo MD -Outpatient Bone Densitometry Work Phone: Start: 07-12-2024 End: 07-12-2024 Dr. Casie Trevizo MD -Outpatient [facility]ometry Work Phone: Start: 07-12-2024 End: 07-12-2024 ambulatory Casie Trevizo Facility:[facility] Start: 07-07-2024 ambulatory Sukumar PALM Fa cili:[facility] Start: 07-07-2024 Registered Referred Sukumar Velazquez MD [facility] Start: 07-07-2024 Sukumar Calderón Gasper Peterson Start: 07-06-2024 Non-patient / Non-visit Dr. Juan Carlos Barrow MD -[facility] Start: 07-06-2024 Dr. Juan Carlos Barrow MD [facility] Start: 07-05-[address] Blanca Orlando MD -[facility] Start: 07-05-2024 End: 07-05-[address] Fransisca Orlando MD -[facility] Work Phone: Start: 07-05-2024 End: 07-05-2024 Dr. Fransisca Orlando MD -[facility] Work Phone: Start: 07-05-2024 End: 07-05-2024 ambulatory Casie Trevizo Facility[facility] Start: 06-30-2024 ambulatory Sukumar PLAM Fa cility:[facility] Start: 06-30-2024 Sukumar Calderón Gasper Winkler Start: 06-29-2024 Evelyn BELLC -A [facility] Start: 06-29-2024 End: 07-01-2024 ambulatory Casie S Jolliff Facility:[facility] Start: 06-29-2024 End: 07-01-2024 Evelyn Robertson NP-[place] [facility] Work Phone: Start: 06-23-2024 ambulatory Casie S Jolliff Facility: [facility] Start: 06-23-2024 Sukumar Calderón Gasper Peterson Start: 06-22-2024 Evelyn Robertson NP-C -A [facility] Start: 06-16-2024 ambulatory Efewongbe Oleghe OLS Fa cility:[facility] Start: 06-16-2024 Sukumar Calderón Gasper Peterson Start: 06-15-2024 ambulatory Brooke Pool [employer] Fa cility:[facility] Start: 06-15-2024 Brooke suarez NP-C -[facility] Start: 06-14-2024 End: 06-14-2024 ambulatory Efewongbe Oleghe Facility:[facility] Start: 06-14-2024 End: 06-14-2024 Dr. Sukumar Velazquez MD -[facility] Work Phone: Start: 06-09-2024 ambulatory Efewongbe Oleghe OLS Fa cility:[facility] Start: 06-09-2024 Sukumar Calderón Gasper Winkler Start: 06-08-2024 Evelyn Robertson NP-C -A [facility] Start: 06-02-2024 ambulatory Efewongbe Oleghe OLS Fa cility:[facility] Start: 06-01-2024 End: 06-03-2024 ambulatory Casie S Jolliff Facility:[facility] Start: 05-26-2024 ambulatory Efewongbe Oleghe OLS Fa cility:[facility] Start: 05-19-2024 ambulatory Efewongbe Oleghe OLS Fa cility:[facility] Start: 05-12-2024 ambulatory Efewongbe Oleghe OLS Fa cility:[facility] Start: 05-09-2024 End: 01-06-2025 Telephone encounter Jim Torres MD Work Phone: [facility] [place] [facility] Comment on above: [employer] Start: 05-05-2024 End: 05-05-2024 Telephone encounter Jim Torres MD Work Phone: [facility] [place] [facility] Comment on above: Results Start: 05-05-2024 End: 05-05-2024 ambulatory Christopher Wells [facility]ious Disease Comment on above: [employer] Start: 05-03-2024 End: 05-03-2024 ambulatory Casie S Jolliff Facility:[facility] Start: 04-28-2024 ambulatory Casie S Jolliff Facility: [facility] Start: 04-26-2024 End: 04-26-2024 ambulatory Sukumar Velazquez Facility:[facility] Start: 04-25-2024 End: 04-25-2024 ambulatory Casie S Jolliff Facility:[facility] Start: 04-20-2024 End: 04-20-2024 ambulatory Jim Torres MD Work Phone: [facility] Comment on above: [employer] Start Start: 04-13-2024 End: 04-22-2024 Evaluation and management of inpatient MONTEJOVee SALDIVAR Facility:[facility] Start: 04-13-2024 End: 04-13-2024 Emergency department patient visit Casie S Jolliff Facility:[facility] Start: 04-08-2024 ambulatory Casie S Jolliff Facility: [facility] Start: 04-07-2024 ambulatory Casie S Jolliff Facility: [facility] Start: 04-06-2024 End: 04-06-2024 ambulatory Casie S Jolliff Facility:[facility] Start: 04-03-2024 End: 04-03-2024 ambulatory Dannie Parr Facility:[facility] Start: 03-31-2024 ambulatory Achlaurenya Morales Facility :[facility] Start: 03-31-2024 End: 04-05-2024 Evaluation and management of inpatient Achintya Morales Facility:[facility] Start: 03-30-2024 End: 04-02-2024 ambulatory Kishore Mota Facility:[facility] Start: 03-30-2024 End: 03-30-2024 ambulatory Casie S Jolliff Facility:[facility] Start: 06-17-2023 End: 06-17-[address] Casie Trevizo Work Phone: [facility] Work Phone: Start: 06-17-2023 End: 06-17-[address] Casie Trevizo Work Phone: [facility]-Radiology, [facility] Work Phone: Start: 05-29-2023 End: 05-29-[address] Casie Trevizo Work Phone: [facility]-Outpatient Breast Imaging Work Phone: Start: 05-11-[address] Casie navarrete Work Phone: [facility] Start: 05-11-2023 End: 05-11-[address] Casie Trevizo Work Phone: [facility] Work Phone: Start: 03-23-2023 End: 03-23-2023 Admission to same day surgery center Dr. Casie Trevizo Work Phone: [facility] Day [facility] Start: 08-11-[address] Casie Trevizo Work Phone: [facility]-Laboratory Start: 08-06-2022 End: 08-06-[address] Casie Trevizo Work Phone: [facility] Work Phone: Start: 08-06-2022 End: 08-06-[address] Casie Trevizo Work Phone: [facility]-Laboratory Start: 06-06-2022 End: 06-06-[address] Casie Trevizo Work Phone: [facility] Start: 06-04-2022 End: 06-04-[address] Casie Trevizo Work Phone: [facility]-Laboratory Start: 05-23-2022 End: 05-23-[address] Cara Arce Work Phone: [facility] Work Phone: Start: 05-23-2022 End: 05-23-[address] Cara Arce Work Phone: [facility]-Outpatient Breast Imaging Start: 05-06-2022 End: 05-06-[address] Cara Arce Work Phone: [facility] Start: 05-06-[address] Cara Arce Work Phone: [facility] Start: 03-13-2022 End: 03-13-[address] Cara Arce Work Phone: [facility] Start: 03-06-2022 Non-patient / Non-visit Dr. Cara Arce Work Phone: [facility] Start: 03-06-2022 End: 03-06-2022 Admission to same day surgery center Dr. Cara Arce Work Phone: [facility] [facility] Start: 03-06-2022 End: 03-06-[address] Cara Arce Work Phone: [facility] Work Phone: Start: 02-19-2022 End: 02-19-[address] Cara Arce Work Phone: [facility] Work Phone: Start: 02-19-2022 End: 02-19-[address] Cara Arce Work Phone: [facility]Out[facility] Densit[facility] Start: 02-06-2022 End: 02-06-[address] Cara Arce Work Phone: [facility] Start: 10-06-[address] Cara Arce Work Phone: [facility] Start: 01-09-2022 End: 01-09-[address] Cara Arce Work Phone: [facility] Start: 01-03-2022 End: 01-03-[address] Cara Arce Work Phone: [facility] Work Phone: Start: 01-03-2022 End: 01-03-[address] Cara Arce Work Phone: [facility] Start: 12-27-2021 End: 12-27-[address] Cara Arce Work Phone: [facility] Work Phone: Start: 12-27-2021 End: 12-27-[address] [facility] Start: 12-26-2021 End: 12-26-2021 Emergency department patient visit [facility] Start: 12-26-2021 End: 12-26-[address] Cara Arce Work Phone: [facility] Work Phone: Start: 12-26-2021 End: 12-26-2021 Patient encounter procedure [facility] Start: 12-10-2021 End: 01-01-[address] Cara Arce Work Phone: [facility] Work Phone: Start: 12-10-2021 End: 01-01-[address] Car[facility] Arce [facility] Start: 12-10-2021 Registered Recurring [facility] Start: 10-25-2021 End: 10-25-2021 Patient encounter procedure [facility] Start: 10-01-2021 End: 10-01-2021 Discharged Recurring [facility] Start: 08-27-2021 End: 08-31-2021 Discharged Recurring [facility] Start: 07-30-2021 End: 08-01-2021 Discharged Recurring [facility] Start: 06-25-2021 End: 07-01-2021 Discharged Recurring [facility] Start: 06-24-2021 End: 06-24-2021 Admission to same day surgery center [facility] Start: 05-28-2021 End: 06-03-2021 [facility]charged [facility] Start: 05-21-2021 End: 05-21-2021 Patient encounter procedure [facility] Start: 05-15-2021 End: 05-15-2021 Patient encounter procedure [facility] Start: 05-14-2021 End: 05-14-2021 Patient encounter procedure [facility] [place] Start: 04-30-2021 End: 05-03-2021 Discharged Recurring [facility] Start: 04-08-2021 End: 04-08-2021 ambulatory [facility] Start: 01-23-2021 Jamshid Ramires CMA [facility] Comment on above: Neuropathic pain (Pr imary Dx) Start: 10-04-2020 End: 10-08-2020 [facility] Start: 10-04-2020 End: 10-08-2020 [facility] Start: 10-04-2020 End: 10-04-2020 Office outpatient visit 25 minutes Analilia Oconnor DO [facility] Comment on above: Transverse myelitis (HCC) (Primary Dx); Neuropathic pain; Vitamin D deficiency; Other specified disorders involving the immune mechanism, 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) Start: 10-04-2020 End: 10-05-2020 [facility] Start: 10-04-2020 End: 10-04-2020 Subsequent hospital visit by physician Gi Frances MD Work Phone: [facility] Comment on above: Arrived Start: 09-10-2020 End: 09-11-2020 ambulatory PROVIDER NOT IN SYSTEM [facility] Start: 09-10-2020 End: 09-10-2020 Subsequent hospital visit by physician Provider Not In [facility] External Films Comment on above: Arrived Start: 09-10-2020 End: 09-10-2020 Office outpatient new 60 minutes Cara Davidson Kiran WASSERMAN Work Phone: [facility] Comment on above: Transverse myelitis (HCC) (Primary Dx); Neuropathic pain; Vitamin D deficiency Start: 07-06-2020 End: 07-06-2020 Transcribe Orders Cara Davidson Kiran Work Phone: [facility] Comment on above: [...] Work Phone: Start: 07-21-2024 Blood count smear mc rscp w/mnl difrntl [...] Work Phone: Start: 06-30-2024 Blood count smear rscp w/mnl difrntl wbc count Dr. Casie Trevizo MD Work Phone: Start: 06-30-2024 Mean corpuscular hem oglobin concentration determination Dr. Casie Trevizo MD Work Phone: Start: 06-30-2024 Nucleated red blood cell count procedure Dr. Casie Trevizo MD Work Phone: Start: 06-30-2024 Platelet mean volume determination Dr. Casie Trevizo MD Work Phone: Start: 06-23-2024 Anion gap measurement D rSadia Trevizo MD Work Phone: Start: 06-23-2024 Blood [...] Work Phone: Start: 06-16-2024 Anion gap measurement Vee Trevizo MD Work Phone: Start: 06-16-2024 Blood [...] Work Phone: Start: 06-09-2024 Blood count smear [facility] w/mnl difrntl wbc count Dr. Casie Trevizo [...] Start: 02-19-2022 Dual energy X-ray absorptiometry Dr. aCra Arce Work Phone: Start: 01-03-2022 Computed tomography [...] canal cer vical w/o & w/contr matrl Jakai Aurelioai Elvin DO Start: 09-10-2020 Computerized tomogra phy, [...] DTaP,Tdap,Td Vaccine (2 - Td or Tdap) [facility] Start: 04-14-2029 Lipid panel Lipid Screening [facility] Start: 04-17-2027 Diabetes Screening Diabetes Screening [facility] Start: 04-14-2025 Hepatitis B surface antibody level LDL Cholesterol [facility] Start: 01-16-2025 Fluoroscopic guidance [facility] Start: 01-16-2025 Patient discharge [facility] Start: 05-04-2024 Advance Directive Discussion Advance Directive Discussion [facility] Start: 01-03-2024 Covid-19 Vaccine ( season) Covid-19 Vaccine () [facility] Start: 01-03-2024 Influenza vaccination Influenza Vaccine (#1) [facility] Start: 05-04-2023 Advance Directive Discussion Advance Directive Discussion [facility] Start: 03-23-2023 Anes dx/ther nerve block/injection prone pos ANESTH N BLOCK/INJ PRONE [facility] Start: 03-23-2023 Njx dx/ther agt pvrt facet jt lmbr/sac 1 level INJ PARAVERT F JNT L/S 1 [facility] Start: 03-23-2023 Njx dx/ther agt pvrt facet jt lmbr/sac 2nd level INJ PARAVERT F JNT L/S 2 [facility] Start: 03-23-2023 Patient discharge [facility] Start: 03-06-2022 Colonoscopy w/biopsy single/multiple COLONOSCOPY AND BIOPSY [facility] Start: 03-06-2022 Colsc flexible w/control bleeding any method COLONOSCOPY W/CONTROL BLEED [facility] Start: 03-06-2022 Patient discharge [facility] Start: 12-27-2021 Celiac disease screen [facility] Work Phone: Start: 12-27-2021 IgE [Units/volume] in Serum or Plasma [facility] Work Phone: Start: 12-27-2021 Serum immunofixation [facility] Work Phone: Start: 12-27-2021 [facility] Work Phone: Start: 12-27-2021 Patient referral [facility] Work Phone: Start: 12-26-2021 Administration of blood product [facility] Work Phone: Start: 06-24-2021 Anesthesia lumbar region nos ANESTH SPINE CORD SURGERY [facility] Work Phone: Start: 06-24-2021 Insj/rplcmt spi npgr dir/induxive coupling INSRT/REDO SPINE N GENERATOR [facility] Work Phone: Start: 06-24-2021 [place]zada impltj nstim eltrds plate/paddle edrl IMPLANT NEUROELECTRODES [facility] Work Phone: Start: 04-08-2021 End: 04-08-2021 Patient encounter procedure [facility] Start: 01-26-2021 COVID-19 Vaccine (3 - Booster for Pfizer series) COVID-19 Vaccine (3 - Booster for Pfizer series) [facility] Start: 01-02-2021 Influenza vaccination Sequential Influenza Vaccine (#1) [facility] Start: 10-11-2020 End: 09-10-2021 MRI of cervical spine MR Cervical Spine With And Without Contrast Imaging Routine Transverse myelitis (HCC) Expected: 10/11/2020, Expires: 09/10/2021 [facility] Comment on above: Expected: 10/11/2020, Expires: Start: 10-11-2020 End: 09-10-2021 MRI of thoracic spine MR Thoracic Spine With And Without Contrast Imaging Routine Transverse myelitis (HCC) Expected: 10/11/2020, Expires: 09/10/2021 [facility] Comment on above: Expected: 10/11/2020, Expires: 2 Start: 10-04-2020 End: 10-04-2020 Patient encounter procedure 10/04/2020 Office Visit Neurology Analilia Oconnor DO [facility] Start: 10-04-2020 End: 10-04-2020 Patient encounter procedure 10/04/2020 Appointment Radiology Gi Frances MD [address] [facility] [address] [place] [address] [phone] [facility] Start: 03-16-2020 Procedure Education Eprescribed prescriptions ([id number]) [facility] Work Phone: Start: 09-14-2019 Screening for malignant neoplasm of breast Mammogram Screening [facility] Start: 09-14-2019 Screening mammography Mammogram [facility] Start: 12-01-2018 Screening for malignant neoplasm of colon [facility] Start: 09-24-2018 Screening for malignant neoplasm of breast Mammogram [facility] Start: 09-24-2018 Screening mammography Mammogram [facility] Start: 06-13-2018 Screening for malignant neoplasm of colon [facility] Start: 2016 Fall risk assessment Falls Risk Assessment [facility] Start: 2016 Pneumococcal Vaccine: Age 65+ (1 of 1 - PPSV23) Pneumococcal Vaccine: Age 65+ (1 of 1 - PPSV23) [facility] Start: 2016 Screening for osteoporosis Bone Density Screening [facility] Start: 04-25-2014 Administration of herpes zoster vaccine Zoster Vaccines (2 of 3) [facility] Start: 04-25-2014 Shingrix Vaccine (2 of 3) Shingrix Vaccine (2 of 3) [facility] Start: 2011 RSV Vaccine (1 - Risk 60-74 years 1-dose series) RSV Vaccine (1 - Risk 60-74 years 1-dose series) [facility] Start: 2001 Screening for malignant neoplasm of colon [facility] Start: 1996 Screening for malignant neoplasm of colon [facility] Start: 1969 Annual PCP Team Chronic Disease Visit Annual PCP Team Chronic Disease Visit [facility] Start: 1969 Anxiety Screening Anxiety Screening [facility] Start: 1969 BP Controlled (<130/80) BP Controlled (<130/80) [facility] Start: 1969 Hepatitis C screening Hepatitis C Screening [facility] Start: 1963 Depression screening using PHQ-9 (Patient Health Questionnaire 9) score [facility] Start: 1954 History and physical examination, annual for health maintenance Wellness Visit [facility] Start: 1951 Screening for osteoporosis Dexa Scan [facility] Start: 1951 Tetanus vaccination Tetanus: Every 10yrs [facility] Albumin [Moles/volum e] in Serum or Plasma [facility] Work Phone: Albumin/Globulin ratio [facility] Work Phone: CBC W Auto Different ial panel - Blood [facility] Work Phone: CBC W Auto Different ial panel - Blood [facility] CBC W Auto Different ial panel - Blood [facility] CBC W Auto Different ial panel - Blood [facility] CT Abdomen and Pelvis [facility] Work Phone: Electrophoresis: [id number] [facility] Work Phone: Electrophoresis: kris ma globulin [facility] Work Phone: Ferritin [Mass/volum e] in Serum or Plasma [facility] Work Phone: Ferritin [Mass/volum e] in Serum or Plasma [facility] Ferritin [Mass/volum e] in Serum or Plasma [facility] Ferritin [Mass/volum e] in Serum or Plasma [facility] Folate [Mass/volume] in Serum or Plasma [facility] Globulin measurement [facility] Work Phone: Haptoglobin [Mass/volume] in Serum or Plasma [facility] IgA [Mass/volume] in Serum or Plasma [facility] Work Phone: IgE [Units/volume] i n Serum or Plasma [facility] Work Phone: IgG [Mass/volume] in Serum or Plasma [facility] Work Phone: IgM [Mass/volume] in Serum or Plasma [facility] Work Phone: Iron [Mass/mass] in Unspecified specimen [facility] Iron and Iron bindin g capacity panel - Serum or Plasma [facility] Work Phone: Iron and Iron bindin g capacity panel - Serum or Plasma [facility] Iron and Iron bindin g capacity panel - Serum or Plasma [facility] Iron and Iron bindin g capacity panel - Serum or Plasma [facility] Lactate dehydrogenas e measurement [facility] MRI of cervical spine MR Cervica l Spine With And Without Contrast Imaging Routine Transverse myelitis (HCC) 10/04/2020 10:11 AM EDT [facility] Neutrophil cytoplasm ic Ab.classic [Units/volume] in Serum [facility] Work Phone: P-ANCA measurement [facility] Work Phone: Patient Education GI Bleeding Ca uses and Tests Anemia Iron Supplements [facility] Work Phone: Patient referral [facility] Work Phone: Protein electrophore sis panel - Serum or Plasma [facility] Work Phone: Reticulocyte count [facility] Work Phone: Reticulocyte count [facility] Reticulocyte count [facility] Serum immunofixation [facility] Serum protein electrophoresis [facility] Work Phone: Smooth muscle Ab [Presence] in Serum [facility] Work Phone: Vitamin B12 measurement [facility] Work Phone: Vitamin B12 measurement [facility] Vitamin B12 measurement [facility] Immunizations Immunization Date Immunization Notes Care Provider [facility] 03-13-2022 influenza virus vaccine, unspecified formulation Jim Torres MD Work Phone: [facility] 07-26-2020 Covid (Pfizer) [facility] 07-05-2020 Covid (Pfizer) [facility] 01-28-2017 influenza, injectabl e, quadrivalent, preservative free Dr. Casie Trevizo Work Phone: [facility] 01-28-2017 influenza, seasonal, injectable [facility] 01-23-2017 Pneumococcal Vaccine [facility] Work Phone: 01-23-2017 pneumococcal vaccine , unspecified formulation Dr. Cara Arce Work Phone: [facility] 08-08-2015 Pneumococcal Vaccine [facility] Work Phone: 08-08-2015 pneumococcal vaccine , unspecified formulation Dr. Cara Arce Work Phone: [facility] 01-02-2015 Influenza virus vaccine W [facility] 10-11-2012 Pneumococcal Vaccine [facility] Work Phone: 10-11-2012 pneumococcal vaccine , unspecified formulation Dr. Cara Arce Work Phone: [facility] Payers Date Payer Category Payer Self-pay [id number] 2019 Unknown [id number] 1. [id number] 2019 Unknown [id number] 2005 Unknown 2003 Medicare [id number] 1.2 .[id number] 2003 Medicare [id number]. [id number] 2003 Medicare [id number] 1950 Unknown [id number] 2.16. 840.1.880003.3.579.2.900 1950 Unknown [id number] 2.16. 840.1.119442.3.579.2.900 1950 Unknown [id number] 2.16. 840.1.434199.3.579.2.900 1950 Unknown [id number] 2.16. 840.1.508740.3.579.2.900 1950 Unknown [id number] 2.16. 840.1.891331.3.579.2.900 1950 Unknown [id number] 2.16. 840.1.735510.3.579.2.900 1951 Unknown [id number] 2.16. 840.1.922253.3.579.2.900 1951 Unknown [id number] 2.16. 840.1.582142.3.579.2.900 1950 Unknown [id number] 2.16. 840.1.269051.3.579.2.900 Unknown [id number] 2.16.8 40.1.645463.3.579.2.462 Unknown [id number] 2.16.8 40.1.010161.3.579.2.462 Unknown [id number] 2.16.8 40.1.406480.3.579.2.462 Unknown [id number] 2.16.8 40.1.790649.3.579.2.462 Unknown [id number] 2.16.8 40.1.822017.3.579.2.462 Unknown [id number] 2.16.8 40.1.841654.3.579.2.462 Unknown [id number] 2.16.8 40.1.624545.3.579.2.462 Unknown [id number] 2.16.8 40.1.044262.3.579.2.462 Unknown [id number] 2.16.8 40.1.740075.3.579.2.462 Unknown [id number] 2.16.8 40.1.631211.3.579.2.462 Unknown [id number] 2.16.8 40.1.016283.3.579.2.462 Unknown [id number] 2.16.8 40.1.691395.3.579.2.462 Unknown [id number] 2.16.8 40.1.852846.3.579.2.462 Unknown [id number] 2.16.8 40.1.506296.3.579.2.462 Unknown [id number] 2.16.8 40.1.846839.3.579.2.462 Unknown [id number] 2.16.8 40.1.093740.3.579.2.462 Unknown [id number] 2.16.8 40.1.733461.3.579.2.462 Unknown [id number] 2.16.8 40.1.102036.3.579.2.462 Unknown [id number] 2.16.8 40.1.664573.3.579.2.462 Unknown [id number] 2.16.8 40.1.029891.3.579.2.462 Unknown [id number] 2.16.8 40.1.705501.3.579.2.462 Unknown [id number] 2.16.8 40.1.079020.3.579.2.462 Unknown [id number] 2.16.8 40.1.125782.3.579.2.462 Unknown [id number] 2.16.8 40.1.473474.3.579.2.462 Unknown [id number] 2.16.8 40.1.411844.3.579.2.462 Unknown [id number] 2.16.8 40.1.638022.3.579.2.462 Unknown [id number] 2.16.8 40.1.481704.3.579.2.462 Unknown [id number] 2.16.8 40.1.951041.3.579.2.462 Unknown [id number] 2.16.8 40.1.222779.3.579.2.462 Unknown [id number] 2.16.8 40.1.460226.3.579.2.462 Unknown [id number] 2.16.8 40.1.548770.3.579.2.462 Unknown [id number] 2.16.8 40.1.519902.3.579.2.462 Unknown [id number] 2.16.8 40.1.376900.3.579.2.462 Unknown [id number] 2.16.8 40.1.232137.3.579.2.462 Unknown [id number] 2.16.8 40.1.930907.3.579.2.462 Unknown [id number] 2.16.8 40.1.578195.3.579.2.462 Unknown [id number] 2.16.8 40.1.326652.3.579.2.462 Unknown [id number] 2.16.8 40.1.373259.3.579.2.462 Unknown [id number] 2.16.8 40.1.833159.3.579.2.462 Unknown [id number] 2.16.8 40.1.869764.3.579.2.462 Unknown [id number] 2.16.8 40.1.155810.3.579.2.462 Unknown [id number] 2.16.8 40.1.727667.3.579.2.462 Unknown [id number] 2.16.8 40.1.590594.3.579.2.462 Unknown [id number] 2.16.8 40.1.478663.3.579.2.462 Unknown [id number] 2.16.8 40.1.462252.3.579.2.462 Unknown [id number] 2.16.8 40.1.540332.3.579.2.462 Unknown [id number] 2.16.8 40.1.506799.3.579.2.462 Unknown [id number] 2.16.8 40.1.364196.3.579.2.462 Unknown [id number] 2.16.8 40.1.903379.3.579.2.462 Unknown [id number] 2.16.8 40.1.515564.3.579.2.462 Unknown [id number] 2.16.8 40.1.108313.3.579.2.462 Social History Date Type Detail Facility Tobacco smoking stat us INIS Unknown if ever smoked [facility] Start: 1950 Sex Assigned At Not on file [facility] Exposure to SARS-CoV -2 (event) Not sure [facility] Start: 09-23-2020 End: 04-13-2024 Tobacco smoking status NHIS Never smoker [facility] Start: 07-26-2013 End: 09-23-2020 Tobacco use and exposure Never used [facility] Work Phone: Start: 09-23-2020 End: 10-20-2020 Alcohol intake Ex-drinker (finding) [facility] Start: 09-13-2020 History SDOH Alcohol Frequency 1 [facility] Start: 09-13-2020 History SDOH Alcohol Std Drinks 99 [facility] Start: 06-19-2021 End: 03-19-2023 Tobacco smoking status INIS Unknown if ever smoked [facility] Start: 11-11-2019 None [facility] Start: 11-11-2019 Alone [facility] Start: 12-03-2019 Non-smoker [facility] Start: 1950 Sex Assigned At Female W [facility] Start: 04-19-2024 Alcoholic beverage intake Curr ent non-drinker of alcohol (finding) [facility] Start: 10-10-2022 End: 04-15-2024 History of Social function [facility] Work Phone: Start: 10-10-2022 End: 04-15-2024 [facility] Utilities [facility] Work Phone: Has the [employer], [employer], or water [email or web address] threatened to shut off services in your home in past 12Mo No [facility] Work Phone: (I/We) worried wheth er (my/our) food would run out before (I/we) got money to buy more. Never true [facility] In the past 12 month s, has lack of transportation kept you from medical appointments or from getting medications? No [facility] NEGATED: Highlighted row [facility] Medical Equipment Procedure Code Equipment Code [...] 8637-20 FDA Start: 01-21-2021 Synchromed Ii Pump [id number] Start : 07-14-2014 Comment on above: Description: [...] level controlled operating mode defined in IEC 49781-6-73 SynchroMed II pump performance has not been [...] Assessment Result Facility 01-16-2025 Cognitive function Voice/Name [facility] Work Phone: 03-23-2023 Cognitive function Voice/Name [facility] Work Phone: 11-17-2022 Cognitive function Voice/Name [facility] Work Phone: 03-06-2022 Cognitive function Voice/Name [facility] Work Phone: 12-26-2021 Cognitive function Level Of Cons ciousness Awake;Alert;Appropriate;Follow s Commands [facility] Work Phone: 06-24-2021 Cognitive function Level Of Cons ciousness Awake;Appropriate [facility] Work Phone: 06-24-2021 Cognitive function Voice/Name [facility] Work Phone: Clinical Notes 09-10-2020 to 01-16-2025 Note Date & Type Note Facility 01-16-2025 Procedure note [facility] 10-12-2024 Progress note Note Date/Time October 12, 2024 11:35am [facility] [address] [place] [address] Progress Note - Wound Care 10/12/24 1131 MR#: [id number] Acct: [id number] Name: ALEENA ANDREA Rep #:[id number] : 1950 74 From: Evelyn Robertson NP [employer] PCP: Dr. Casie Trevizo MD Status:REG RCR [...] pressure ulcer. It was debrided twice at [facility]. She has been following for wound [...] ischium. She has an adult daughter in [place] and an adult daughter here in [place] whoare both very involved and supportive. Progress [...] Recorded Date Recorded By Document 10/05/24 11:05 [id number] 10/05/24 11:09 RB Document 10/12/24 10:53 [id number] 10/12/24 10:57 RB 10/05/24 10/12/24 11:05 10:53 - Today's Visit Information Type of service Follow-up Visit Follow-up Visit (Physician/[employer]OTH [employer]ANGE OPERATOR CHIEF (Physician/[employer] OPERATOR CHIEF ) ) Arrival Mode Wheelchair Wheelchair Transfer [...] Pain Free? Yes Yes WC - Nurse 1 - General Ulcer Measurement Start: 10/05/24 11:05 Freq: Status: Active Protocol: Activity Type Activity Date Activity User E-sign Co-sign Detail Recorded Client Recorded Date Recorded By Document 10/05/24 11:05 RB [id number] 10/05/24 11:09 RB Document 10/12/24 10:53 RB [id number] 10/12/24 10:57 RB 10/05/24 10/12/24 11:05 10:53 [...] Amt Large (67-100%) Medium (34-66%) -Granulation Quality [place] -Slough/Fibrin Yes Yes -Necrosis Amt Small (1-33%) [...] Amt Medium (34-66%) Medium (34-66%) -Granulation Quality [place] -Slough/Fibrin Yes Yes -Necrosis Amt Small (1-33%) [...] Amt Large (67-100%) Medium (34-66%) -Granulation Quality [place] Hyper- granulation, [place],Red -Slough/Fibrin Yes Yes -Necrosis Amt Medium (34-66%) [...] Date Recorded By Document 10/05/24 11:23 DS [id number] 10/05/24 11:31 DS Document 10/12/24 11:03 BM [id number] 10/12/24 11:08 BMF 10/05/24 10/12/24 11:23 11:03 [...] Disc -Expiration Date 05/04/29 -Product Lot Number [id number] -Percent Used 100 -Lot number of Saline Used [id number] -Bleeding Controlled with Pressure NA -Treatment Response [...] Date Recorded By Document 10/05/24 11:57 RB [id number] 10/05/24 11:59 RB Document 10/12/24 11:23 DL [id number] 10/12/24 11:25 DL 10/05/24 10/12/24 11:57 11:23 [...] Summary of Care Provided Yes Facility Type Care Home Care Facility Orders Sent Yes Assessment/Plan Assessment/Plan [...] 1135 <Electronically signed by Evelyn Robertson NP [employer]> Cosigner Signature (if applicable): CC: ~ Signed [facility] Work Phone: 1(856) 994-473306-11-2025 Progress note [facility] [address] [place] [address] Progress Note - Wound Care 10/12/24 1131 MR#: [id number] Acct: [id number] Name: ALEENA ANDREA Rep #:[id number] 12 : 1950 74 From: Evelyn Robertson NP [employer] PCP: Dr. Casie Trevizo MD Status:REG R [...] pressure ulcer. It was debrided twice at [facility]. She has been following for wound [...] ischium. She has an adult daughter in [place] and an adult daughter here in [place] whoare both very involved and supportive. Progress [...] Recorded Date Recorded By Document 10/05/24 11:05 [id number] 10/05/24 11:09 RB Document 10/12/24 10:53 [id number] 10/12/24 10:57 RB 10/05/24 10/12/24 11:05 10:53 - Today's Visit Information Type of service Follow-up Visit Follow-up Visit (Physician/CLOTH BLEACHING RANGE OPERATOR CHIEF (Physician/CLOTH BLEACHING RANGE OPERATOR CHIEF ) ) Arrival Mode Wheelchair Wheelchair Transfer [...] Pain Free? Yes Yes WC - Nurse 1 - General Ulcer Measurement Start: 10/05/24 11:05 Freq: Status: Active Protocol: Activity Type Activity Date Activity User E-sign Co-sign Detail Recorded Client Recorded Date Recorded By Document 10/05/24 11:05 RB [id number] 10/05/24 11:09 RB Document 10/12/24 10:53 RB [id number] 10/12/24 10:57 RB 10/05/24 10/12/24 11:05 10:53 [...] Amt Large (67-100%) Medium (34-66%) -Granulation Quality [place] -Slough/Fibrin Yes Yes -Necrosis Amt Small (1-33%) [...] Amt Medium (34-66%) Medium (34-66%) -Granulation Quality [place] -Slough/Fibrin Yes Yes -Necrosis Amt Small (1-33%) [...] Amt Large (67-100%) Medium (34-66%) -Granulation Quality [place] Hyper- granulation, [place],Red -Slough/Fibrin Yes Yes -Necrosis Amt Medium (34-66%) [...] Date Recorded By Document 10/05/24 11:23 DS [id number] 10/05/24 11:31 DS Document 10/12/24 11:03 BM [id number] 10/12/24 11:08 BMF 10/05/24 10/12/24 11:23 11:03 [...] Disc -Expiration Date 05/04/29 -Product Lot Number [id number] -Percent Used 100 -Lot number of Saline Used [id number] -Bleeding Controlled with Pressure NA -Treatment Response [...] Date Recorded By Document 10/05/24 11:57 RB [id number] 10/05/24 11:59 RB Document 10/12/24 11:23 DL [id number] 10/12/24 11:25 DL 10/05/24 10/12/24 11:57 11:23 [...] Summary of Care Provided Yes Facility Type Care Home Care Facility Orders Sent Yes Assessment/Plan Assessment/Plan [...] Cosigner Signature (if applicable): CC: ~ Signed [facility]06-04-2025 Progress note Author Evelyn Robertson [facility] Note Date/Time October 05, 2024 11:52 am [facility] [address] [place] [address] Progress Note - Wound Care 10/05/24 1147 MR#: [id number] Acct: [id number] Name: ALEENA ANDREA Rep #:[id number] 22 : 1950 74 From: Evelyn Robertson NP [employer] PCP: Dr. Casie Trevizo MD Status:REG RCR [...] pressure ulcer. It was debrided twice at [facility]. She has been following for wound [...] ischium. She has an adult daughter in [place] and an adult daughter here in [place] whoare both very involved and supportive. Progress [...] Date Recorded By Document 10/05/24 11:05 LAURENCE [id number] 10/05/24 11:09 LAURENCE 10/05/24 11:05 MARY - Today's Visit Information Type of service Follow-up Visit (Physician/CLOTH BLEACHING RANGE OPERATOR CHIEF ) Arrival Mode Wheelchair Transfer Assistance Manual [...] Date Recorded By Document 10/05/24 11:05 LAURENCE [id number] 10/05/24 11:09 LAURENCE 10/05/24 11:05 Wound Center Nurse 1 19. sacral -Combined with other wound No -Current Size (cm) - Length 1 -Current Size (cm) - Width 0.6 -Current Size (cm) - Depth 0.1 -Total Square Cm 0.6 -Tunneling No -Undermining/Tunneling No -Circular Undermining No -Exudate Amt Medium -Exudate Type Serosanguineous -Wound Margin Distinct, Outline Attached -Granulation Amt Large (67-100%) -Granulation Quality [place] -Slough/Fibrin Yes -Necrosis Amt Small (1-33%) -Necrotic [...] Attached -Granulation Amt Medium (34-66%) -Granulation Quality [place] -Slough/Fibrin Yes -Necrosis Amt Small (1-33%) -Necrotic [...] Attached -Granulation Amt Large (67-100%) -Granulation Quality [place] -Slough/Fibrin Yes -Necrosis Amt Medium (34-66%) -Necrotic [...] Date Recorded By Document 10/05/24 11:23 DS [id number] 10/05/24 11:31 DS 10/05/24 11:23 Wound Center Nurse 2 19. sacral -Time 11: -Correct Patient Yes -Correct Side, Site, Position [...] Disc -Expiration Date 05/04/29 -Product Lot Number [id number] -Percent Used 100 -Lot number of Saline Used [id number] -Bleeding Controlled with Pressure -Treatment Response Procedure [...] Adaptic over top and a foam SAP Hiko dressing every day follow-up in 1 week 10/05/24 1152 <Electronically signed by Evelyn Robertson NP [employer]> Cosigner Signature (if applicable): CC: ~ Signed [facility] Work Phone: 1(636) 352-755006-04-2025 Progress note [facility] [address] [place] [address] Progress Note - Wound Care 10/05/24 1147 MR#: [id number] Acct: [id number] Name: ALEENA ANDREA Rep #:[id number] 22 : 1950 74 From: Evelyn Robertson NP [employer] PCP: Dr. Casie Trevizo MD Status:REG R [...] pressure ulcer. It was debrided twice at [facility]. She has been following for wound [...] ischium. She has an adult daughter in [place] and an adult daughter here in [place] whoare both very involved and supportive. Progress [...] Date Recorded By Document 10/05/24 11:05 LAURENCE [id number] 10/05/24 11:09 RB 10/05/24 11:05 WC - Today's Visit Information Type of service Follow-up Visit (Physician/CLOTH BLEACHING RANGE OPERATOR CHIEF ) Arrival Mode Wheelchair Transfer Assistance Manual [...] 0-10 Numeric Is Patient Pain Free? Yes MARY Calderón Nurse 1 - General Ulcer Measurement Start: 10/05/24 11:05 Freq: Status: Active Protocol: Activity Type Activity Date Activity User E-sign Co-sign Detail Recorded Client Recorded Date Recorded By Document 10/05/24 11:05 LAURENCE [id number] 10/05/24 11:09 LAURENCE 10/05/24 11:05 Wound Center Nurse 1 19. sacral -Combined with other wound No -Current Size (cm) - Length 1 -Current Size (cm) - Width 0.6 -Current Size (cm) - Depth 0.1 -Total Square Cm 0.6 -Tunneling No -Undermining/Tunneling No -Circular Undermining No -Exudate Amt Medium -Exudate Type Serosanguineous -Wound Margin Distinct, Outline Attached -Granulation Amt Large (67-100%) -Granulation Quality [place] -Slough/Fibrin Yes -Necrosis Amt Small (1-33%) -Necrotic [...] Attached -Granulation Amt Medium (34-66%) -Granulation Quality [place] -Slough/Fibrin Yes -Necrosis Amt Small (1-33%) -Necrotic [...] Attached -Granulation Amt Large (67-100%) -Granulation Quality [place] -Slough/Fibrin Yes -Necrosis Amt Medium (34-66%) -Necrotic [...] Date Recorded By Document 10/05/24 11:23 DS [id number] 10/05/24 11:31 DS 10/05/24 11:23 Wound Center [...] Disc -Expiration Date 05/04/29 -Product Lot Number [id number] -Percent Used 100 -Lot number of Saline Used [id number] -Bleeding Controlled with Pressure -Treatment Response Procedure [...] Adaptic over top and a foam SAP Hiko dressing every day follow-up in 1 week 10/05/24 1152 Cosigner Signature (if applicable): CC: ~ Signed [facility]05-28-2025 Progress note Author Evelyn Robertson [facility] Note Date/Time September 28, 2024 12:38 pm [facility] [address] [place] [address] Progress Note - Wound Care 09/28/24 1225 MR#: [id number] Acct: [id number] Name: ALEENA ANDREA Rep #:[id number] 11 : 1950 74 From: Evelyn Robertson NP [employer] PCP: Dr. Casie Trevizo MD Status:REG RCR [...] pressure ulcer. It was debrided twice at [facility]. She has been following for wound [...] ischium. She has an adult daughter in [place] and an adult daughter here in [place] whoare both very involved and supportive. Progress [...] 18 113/65 09/28/24 11:01 09/28/24 11:01 09/28/24 11:09/28/24 11:01 Weight: 89 lb 6.4 oz Body [...] Date Recorded By Document 09/07/24 10:22 DL [id number] 09/07/24 10:35 DL Document 09/14/24 10:49 RB [id number] 09/14/24 10:53 RB Document 09/21/24 10:42 DL [id number] 05/21/25 10:51 DL Document 09/28/24 11:01 RB [id number] 09/28/24 11:05 RB 09/07/24 09/14/24 09/21/24 10:22 10:49 10:42 WC - Today's Visit Information Type of service Follow-up Visit Follow-up Visit Follow-up Visit (Physician/CLOTH BLEACHING RANGE OPERATOR CHIEF (Physician/CLOTH BLEACHING RANGE OPERATOR CHIEF (Physician/CLOTH BLEACHING RANGE OPERATOR CHIEF ) ) ) Arrival Mode Wheelchair Wheelchair [...] Visit Information Type of service Follow-up Visit (Physician/CLOTH BLEACHING RANGE OPERATOR CHIEF ) Arrival Mode Wheelchair Transfer Assistance Manual [...] Date Recorded By Document 09/07/24 10:22 DL [id number] 09/07/24 10:35 DL Document 09/14/24 10:49 RB [id number] 09/14/24 10:53 RB Document 09/21/24 10:42 DL [id number] 09/21/24 10:51 DL Document 09/28/24 11:01 RB [id number] 09/28/24 11:05 RB 09/07/24 09/14/24 09/21/24 10:22 10:49 10:42 Wound Center Nurse 1 #17- L. Ischium -Current Size (cm) - Length 0 -Current Size (cm) - Width 0 -Current Size (cm) - Depth 0 -Total Square Cm 0 -Photo Taken Yes -Exudate Amt None Present -Wound Margin Flat & Intact -Granulation Amt Large (67-100%) -Granulation Quality [place] -Necrosis Amt None Present (0 %) -Structure [...] (34-66%) None Present (0 %) -Granulation Quality [place] -Slough/Fibrin Yes -Necrosis Amt Small (1-33%) Large [...] (34-66%) Medium (34-66%) Large (67-100%) -Granulation Quality [place] -Slough/Fibrin Yes -Necrosis Amt Medium (34-66%) Small [...] Medium (34-66%) Large (67-100%) -Granulation Quality Hyper- [place] Hyper- granulation, granulation, [place],Red -Slough/Fibrin Yes -Necrosis Amt None Present (0 [...] Attached -Granulation Amt Medium (34-66%) -Granulation Quality [place] -Slough/Fibrin Yes -Necrosis Amt Small (1-33%) -Necrotic [...] Attached -Granulation Amt Large (67-100%) -Granulation Quality [place] -Slough/Fibrin Yes -Necrosis Amt Small (1-33%) -Necrotic [...] Attached -Granulation Amt Medium (34-66%) -Granulation Quality [place] -Slough/Fibrin Yes -Necrosis Amt Medium (34-66%) -Necrotic [...] Recorded Date Recorded By Document 09/07/24 10:45 [facility] [id number] 09/07/24 10:57 [facility] Document 09/14/24 11:01 [facility] [id number] 09/14/24 11:12 BM Document 09/21/24 10:57 [facility] [id number] 09/21/24 11:19 [facility] Document 09/28/24 11:23 [facility] [id number] 09/28/24 11:37 [facility] 09/07/24 09/14/2409/21/25 10:45 11:01 10:57 Wound Center Nurse 2 [...] Tolerated Well Tolerated Well -Debridement - Open, 20sq cm -Debridement - Subq, 20sq cm Yes No #14 Right Buttock [...] Epifix -Expiration Date 11/01/28 -Product Lot Number [id number] -Percent Used 100 -Lot number of Saline Used [id number] -Bleeding Controlled with Pressure Pressure,Silver Pressure Nitrate ($) -Treatment Response Procedure Procedure Procedure Tolerated Well Tolerated Well Tolerated Well -Pressure Reduction Wheelchair cushion, Specialty bed -Debridement - Subq, 20sq cm No Yes No -Apply Skin [...] Disc -Expiration Date 05/04/29 -Product Lot Number [id number] -Percent Used 100 -Lot number of Saline Used [id number] -Bleeding Controlled with Pressure -Treatment Response Procedure [...] Date Recorded By Document 09/07/24 11:14 DL [id number] 09/07/24 11:19 DL Document 09/14/24 11:28 DL [id number] 09/14/24 11:31 DL Document 09/21/24 11:30 MT [id number] 09/21/24 11:39 MT Document 09/28/24 12:03 RB [id number] 09/28/24 12:05 RB 09/07/24 09/14/24 09/21/24 11:14 [...] Nora Hollis. per Jessica Tsang. Facility Type Practice [facility] Orders Sent Yes Yes [...] Adaptic over top and a foam SAP Hiko dressing every day follow-up in 1 week 09/28/24 1238 <Electronically signed by Evelyn Robertson NP [employer]> Cosigner Signature (if applicable): CC: ~ Signed [facility] Work Phone: 1(743) 472-548805-28-2025 Evaluation note* Diagnosis Onset Date Resolution Status [...] f buttock chronic October 12, 2024 10:30am [facility] Work Phone: 1(442) 460-998505-21-2025 Progress note Author Evelyn Robertson [facility] Note Date/Time September 21, 2024 12:11 pm [facility] [address] [place] [address] Progress Note - Wound Care 09/21/24 1201 MR#: [id number] Acct: [id number] Name: ALEENA ANDREA Rep #:[id number] 12 : 1950 74 From: Evelyn Robertson NP [employer] PCP: Dr. Casie Trevizo MD Status:REG RCR [...] pressure ulcer. It was debrided twice at [facility]. She has been following for wound [...] ischium. She has an adult daughter in [place] and an adult daughter here in [place] whoare both very involved and supportive. Progress of Wound: Right ischium wound is healed. She developed a blister from putting a heating pad on her buttocks because she was cold. About the size of a quarter now it is flat and smooth we will apply Fibracol and Adaptic on top of it to keep it from getting infected with a foam dressing, Hiko SAP pad. The left great toe hallux [...] Date Recorded By Document 09/07/24 10:22 DL [id number] 09/07/24 10:35 DL Document 09/14/24 10:49 RB [id number] 09/14/24 10:53 RB Document 09/21/24 10:42 DL [id number] 09/21/24 10:51 DL 09/07/24 09/14/24 09/21/24 10:22 10:49 10:42 - Today's Visit Information Type of service Follow-up Visit Follow-up Visit Follow-up Visit (Physician/CLOTH BLEACHING RANGE OPERATOR CHIEF (Physician/CLOTH BLEACHING RANGE OPERATOR CHIEF (Physician/CLOTH BLEACHING RANGE OPERATOR CHIEF ) ) ) Arrival Mode Wheelchair Wheelchair [...] Date Recorded By Document 09/07/24 10:22 DL [id number] 09/07/24 10:35 DL Document 09/14/24 10:49 RB [id number] 09/14/24 10:53 RB Document 09/21/24 10:42 DL [id number] 09/21/24 10:51 DL 09/07/24 09/14/24 09/21/24 10:22 10:49 10:42 Wound Center Nurse 1 #17- L. Ischium -Current Size (cm) - Length 0 -Current Size (cm) - Width 0 -Current Size (cm) - Depth 0 -Total Square Cm 0 -Photo Taken Yes -Exudate Amt None Present -Wound Margin Flat & Intact -Granulation Amt Large (67-100%) -Granulation Quality [place] -Necrosis Amt None Present (0 %) -Structure [...] (34-66%) None Present (0 %) -Granulation Quality [place] -Slough/Fibrin Yes -Necrosis Amt Small (1-33%) Large [...] (34-66%) Medium (34-66%) Large (67-100%) -Granulation Quality [place] -Slough/Fibrin Yes -Necrosis Amt Medium (34-66%) Small [...] Medium (34-66%) Large (67-100%) -Granulation Quality Hyper- [place] Hyper- granulation, granulation, [place],Red -Slough/Fibrin Yes -Necrosis Amt None Present (0 Medium (34-66%) Small (1-33%) %) -Necrotic Tissue Type Adherent Slough Adherent Slough -Structure Exposed N/A N/A N/A -Texture (Elyla-wound Skin Appearance) Scarring Assessed Scarring -Moisture (Leyla-wound [...] Recorded Date Recorded By Document 09/07/24 10:45 [facility] [id number] 09/07/24 10:57 [facility] Document 09/14/24 11:01 [facility] [id number] 09/14/24 11:12 [facility] Document 09/21/24 10:57 [facility] [id number] 09/21/24 11:19 [facility] 09/07/24 09/14/24 09/21/24 10:45 11:01 10:57 Wound Center Nurse 2 #17- LSadia Ischium -Time 10:47 -Procedure Performed No -Post [...] Epifix -Expiration Date 11/01/28 -Product Lot Number [id number] -Percent Used 100 -Lot number of Saline Used [id number] -Bleeding Controlled with Pressure Pressure,Silver Pressure Nitrate [...] Date Recorded By Document 09/07/24 11:14 DL [id number] 09/07/24 11:19 DL Document 09/14/24 11:28 DL [id number] 09/14/24 11:31 DL Document 09/21/24 11:30 MT [id number] 09/21/24 11:39 MT 09/07/24 09/14/24 09/21/24 11:14 [...] Nora Hollis. per Jessica Tsang. Facility Type Care Home [facility] Orders Sent Yes Yes [...] Adaptic over top and a foam SAP Hiko dressing every day follow-up in 1 week 09/21/24 1211 <Electronically signed by Evelyn Robertson NP [employer]> Cosigner Signature (if applicable): CC: ~ Signed [facility] Work Phone: [phone]) 189-964905-14-2025 Progress note Author Evelyn Robertson [facility] Note Date/Time September 14, 2024 12:08 pm [facility] [address] [place] [id number] Progress Note - Wound Care 09/14/24 1158 MR#: [id number] Acct: [id number] Name: ALEENA ANDREA JULIANE Rep #:[id number] 11 : 1950 74 From: Evelyn Robertson NP [employer] PCP: Dr. Casie Trevizo MD Status:REG RCR [...] pressure ulcer. It was debrided twice at [facility]. She has been following for wound [...] ischium. She has an adult daughter in [place] and an adult daughter here in [place] whoare both very involved and supportive. Progress of Wound: Right ischium wound is healed. She developed a blister from putting a heating pad on her buttocks because she was cold. About the size of a quarter now it is flat and smooth we will apply Fibracol and Adaptic on top of it to keep it from getting infected with a foam dressing, Hiko SAP pad. The left great toe helix is open again and we feel it is from her laying on her stomach and she is not padding it properly and putting a shoe or a sock or a foam dressing over top of that the protected and she is opening it. We will apply fibrocal to the left helix with a Hiko SAP dressing over top seems to be [...] Date Recorded By Document 09/07/24 10:22 DL [id number] 09/07/24 10:35 DL Document 09/14/24 10:49 RB [id number] 09/14/24 10:53 RB 09/07/24 09/14/24 10:22 10:49 WC - Today's Visit Information Type of service Follow-up Visit Follow-up Visit (Physician/CLOTH BLEACHING RANGE OPERATOR CHIEF (Physician/CLOTH BLEACHING RANGE OPERATOR CHIEF ) ) Arrival Mode Wheelchair Wheelchair Transfer [...] -Effectiveness of Alleviating Factor/ Moderately Intervention effective MARY - Nurse 1 - General Ulcer Measurement Start: 09/07/24 10:22 Freq: Status: Active Protocol: Activity Type Activity Date Activity User E-sign Co-sign Detail Recorded Client Recorded Date Recorded By Document 09/07/24 10:22 DL [id number] 09/07/24 10:35 DL Document 09/14/24 10:49 RB [id number] 09/14/24 10:53 RB 09/07/24 09/14/24 10:22 10:49 Wound Center Nurse 1 #17- L. Ischium -Current Size (cm) - Length 0 -Current Size (cm) - Width 0 -Current Size (cm) - Depth 0 -Total Square Cm 0 -Photo Taken Yes -Exudate Amt None Present -Wound Margin Flat & Intact -Granulation Amt Large (67-100%) -Granulation Quality [place] -Necrosis Amt None Present (0 %) -Structure [...] Attached -Granulation Amt Medium (34-66%) -Granulation Quality [place] -Slough/Fibrin Yes -Necrosis Amt Small (1-33%) -Necrotic [...] Amt Medium (34-66%) Medium (34-66%) -Granulation Quality [place] -Slough/Fibrin Yes -Necrosis Amt Medium (34-66%) Small [...] Large (67-100%) Medium (34-66%) -Granulation Quality Hyper- [place] granulation, [place] -Slough/Fibrin Yes -Necrosis Amt None Present (0 [...] Recorded Date Recorded By Document 09/07/24 10:45 [facility] [id number] 09/07/24 10:57 [facility] Document 09/14/24 11:01 [facility] [id number] 09/14/24 11:12 [facility] 09/07/24 09/14/24 10:45 11:01 Wound Center Nurse [...] Date Recorded By Document 09/07/24 11:14 DL [id number] 09/07/24 11:19 DL Document 09/14/24 11:28 DL [id number] 09/14/24 11:31 DL 09/07/24 09/14/24 11:14 11:28 [...] applied today per Nora Hollis. Facility Type Care Home Care Facility Orders Sent Yes Yes Additional [...] Adaptic over top and a foam SAP Hiko dressing every day follow-up in 1 week 09/14/24 1208 <Electronically signed by Evelyn Robertson NP [employer]> Cosigner Signature (if applicable): CC: ~ Signed [facility] Work Phone: [phone]) 796-767305-07-2025 Progress note Author Evelyn Robertson [facility] Note Date/Time September 07, 2024 12:47p m [facility] [address] [place] [address] Progress Note - Wound Care 09/07/24 1239 MR#: [id number] Acct: [id number] Name: ALEENA ANDREA Rep #:[id number] : 1950 74 From: Evelyn Robertson NP [employer] PCP: Dr. Casie Trevizo MD Status:REG RCR [...] pressure ulcer. It was debrided twice at [facility]. She has been following for wound [...] ischium. She has an adult daughter in [place] and an adult daughter here in [place] whoare both very involved and supportive. Progress [...] an ABD pad over top or a Hiko SAP pad. The left great toe helix is open again and we feel it is from her laying on her stomach and she is not padding it properly and putting a shoe or a sock or a foam dressing over top of that the protected and she is opening it. We will applyfibber call to the left helix with a Hiko SAP dressing over top right buttocks we [...] 97.8 F 79 16 128/72 H 09/07/24 10:09/07/24 10:22 09/07/24 10:09/07/24 10:22 Weight: 89 lb 6.4 oz Body [...] Date Recorded By Document 09/07/24 10:22 DL [id number] 09/07/24 10:35 DL 09/07/24 10:22 - Today's Visit Information Type of service Follow-up Visit (Physician/CLOTH BLEACHING RANGE OPERATOR CHIEF ) Arrival Mode Wheelchair Transfer Assistance Manual [...] Date Recorded By Document 09/07/24 10:22 DL [id number] 09/07/24 10:35 DL 09/07/24 10:22 Wound Center Nurse 1 #17- L. Ischium -Current Size (cm) - Length 0 -Current Size (cm) - Width 0 -Current Size (cm) - Depth 0 -Total Square Cm 0 -Photo Taken Yes -Exudate Amt None Present -Wound Margin Flat & Intact -Granulation Amt Large (67-100%) -Granulation Quality [place] -Necrosis Amt None Present (0 %) -Structure [...] Attached -Granulation Amt Medium (34-66%) -Granulation Quality [place] -Necrosis Amt Medium (34-66%) -Necrotic Tissue Type [...] Amt Large (67-100%) -Granulation Quality Hyper- granulation, [place] -Necrosis Amt None Present (0 %) -Structure [...] Recorded Date Recorded By Document 09/07/24 10:45 [facility] [id number] 09/07/24 10:57 [facility] 09/07/24 10:45 Wound Center Nurse 2 #17- [...] with Pressure, Surgifoam ? x 2 3/8 (sm) -Surgifoam [...] Date Recorded By Document 09/07/24 11:14 DL [id number] 09/07/24 11:19 DL 09/07/24 11:14 Wound Care [...] Status Wheelchair Transportation Private Auto Facility Type Care Home Care Facility Orders Sent Yes Additional Wound [...] and monitor use Skin-Prep as needed 09/07/24 1247 <Electronically signed by Evelyn Robertson NP [employer]> Cosigner Signature (if applicable): CC: ~ Signed [facility] Work Phone: 1([phone]) 296-664303-04-2025 Evaluation note* Diagnosis Onset Date Resolution Status [...] Chronic anemia chronic July 8:30am Paraplegia chronic March 26th, 20 25 8:30am Decubitus ulcer of left ischium, stage [...] f buttock chronic October 12, 2024 10:30am [facility] Work Phone: 1(333) 254-497702-26-2025 Evaluation note* Diagnosis Onset Date Resolution Status Admit Date Decubitus ulcer of left buttock, stage 2 acute June 29, 2024 8:30am Decubitus ulcer of right buttock, stage 4 acute June 29, 2024 8:30am Decubitus ulcer of sacral region, stage 2 acute June 29 8:30am Decubitus ulcer of toe, stag e 2 acute June 29 8:30am Malnutrition acute June 8:30am Wound infection acute June 29, 2024 8:30am Chronic anemia chronic June 052024 8:30am 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 Juliane Landa RN [facility] Work Phone: [phone]) 953-825801-06-2025 Miscellaneous Notes* Telephone Encounter - Juliane Landa RN - 05/09/2024 3:50 PM EST Verbal order relayed to patient's nurse at [facility]. Juliane Landa RN * Telephone Encounter - Jim Torres MD - 05/09/2024 3:37 PM EST Ok to honor end date and remove picc. Thanks. Jim Torres MD * Telephone Encounter - Juliane Landa RN - 05/09/2024 3:22 PM EST Copat stop date 05/10/24. Can stop date be honored and PICC be removed after last dose of cefazolin? Juliane Landa RN [facility] Telephone encounter Note * Telephone Encounter - Jim Torres MD - 05/09/2024 3:37 PM EST Ok to honor end date and remove picc. Thanks. Jim Torres MD [facility] Work Phone: 1(441) 476-465801-06-2025 Telephone encounter Note* Telephone Encounter - Juliane Landa RN - 05/09/2024 3:22 PM EST Copat stop date 05/10/24. Can stop date be honored and PICC be removed after last dose of cefazolin? Juliane Landa RN [facility]01-02-2025 History of Present illness Narrative* Christopher Wells RPh - 05/05/2024 2:51 PM ESTSummary: OPAT Management [facility] OPAT Documentation Note OPAT Pharmacist Lab [...] RPh 05/05/2024 2:51 PM documented [facility]25 NoteHNO ID: [id number] Author: CHRISTOPHER WELLS RPh Service: ? Author Type: Pharmacist Type: Progress Notes Filed: 05/05/2024 14:53 Note Text: Summary: OPAT Management [facility] OPAT Documentation Note OPAT Pharmacist Lab [...] minutes): 5-10 Christopher Wells RPh 05/05/2024 2:51 [facility]01-02-2025 Telephone encounter Note* Telephone Encounter - Juliane Landa RN - 05/05/2024 2:32 PM EST External copat lab results entered. Juliane Landa RN [facility] Work Phone: 1(399) 312-432801-02-2025 Miscellaneous Notes* Telephone Encounter - Juliane Landa RN - 05/05/2024 2:32 PM EST External copat lab results entered. Juliane Landa RN documented [facility]24 NoteHNO ID: [id number] Author: BONITA LAMBERT, RN Service: Care Management Author Type: Registered Nurse Type: Care Mgt Progress Note Filed: 04/22/2024 16:15 Note Text: CARE MANAGEMENT DISCHARGE NOTE SERVICE DATE: April 22, 2024 SERVICE TIME: 4:15 PM Admission Date: 04/13/2024 LOS: 8 days Discharge Arrangement Discharge Arrangement: Longterm Facility Was an expedited discharge program used?: No Provider Name: Saberr Caregiver Assessment Caregiver is ready, willing and able to meet the patient's needs as recommended by the inter-professional team: Yes Name of Caregiver: Saberr Transportation Arrangements Transportation Arrangements: Car Handoff Communication: Handoff to: Primary Care Physician;Other Caregiver Primary Care Physician Name/Phone: summary of care to PCPCara Other Caregiver Name/Phone: Saberr is aware of DC, RN to call report Additional Information: Patient is discharging to [facility]. Her daughter Bela to transport via private w/c van. Met with patient in room. She is aware of plan for DC and is in agreement. SIGNATURE: Bonita Lambert RN PATIENT NAME: Aleena Andrea DATE: April 22, 2024 TIME: 4:13 [facility]12-20-2024 NoteHNO ID: [id number] Author: FANI ALMODOVAR [facility] Service: Pharmacy Author Type: Pharmacist [...] orders have been addressed by LIP. Fani Almodovar, PharmD, [facility] Pager: [phone] 04/22/2024 12:57 PM Medication List START taking [...] these medications oxyCODONE 15 mg immediate release [facility]-2024 NoteHNO ID: [id number] Author: FRANCISCA SWANSON MD Service: Pain Management [...] CAD, CHF, osteoporosis, depression presented 04/13 from [place] ED for increased right hip pain and progressive wounds. CTAP from [place] showed right sided 8.5x8.3cm subcutaneous abscess extending [...] for SBO. Home pain regimen managed by [place] PM includes intrathecal pump (Dilaudid, baclofen) oxycodone [...] 8 HR Jim Torres MD Stopped at 04/21/24 0911 enoxaparin 30 mg injection (LOVENOX) 30 mg [...] Moni Worley MD 4 g at 04/21/24 120 ondansetron (PF) 4 mg injection (ZOFRAN) 4 mg INTRAVENOUS q 6 H PRN Moni Worley MD 4 mg at 04/18/24 2240 bisacodyl 10 mg suppository (DULCOLAX) 10 mg RECTAL DAILY PRN Moni Worley MD prochlorperazine 5 mg injection (COMPAZINE) 5 mg INTRAVENOUS q 6 H PRN Moni Worley MD 5 mg at 04/15/24 1832 gabapentin 800 mg cap(s) (NEURONTIN) 800 mg [...] (PWD) 1 mg patient's own pump - [facility] placeholder INTRATHECAL CONTINUOUS Moni Worley MD traZODone [...] , Rfl: POLYETHYLENE GL (more content not included)...[facility] 04-21-2024 NoteHNO ID: [id number] Author: GUSTABO SALDIVAR MD Service: Hospital Medicine [...] pump will be changed tomorrow followed by DC to [place]. Signature: Gustabo Saldivar MD Date: 04/21/2024 Time: 1:36 PM [facility] PROGRESS NOTE PATIENT NAME: Aleena Andrea ADMITTED [...] tizanidine, naproxen Patient presented to [facility] from [place] [facility] by EMS for hip pain for 1 week with progressive wounds on R hip. CTAP from [place] showed right sided 8.5x8.3cm subcutaneous abscess extending [...] pain pump tomorrow prior to discharging to [place] to which she expressed agreement. Pertinent results today: Afebrile, HR normal, MAP 79, SpO2 99 on RA Discovery Guide Updates Gen Surg -No plans for further surgical intervention. Surgery will sign-off at this time. Please call with questions or concerns ID - Will transition to cefazolin - CoPat Ordered Pain management -When discharged to SNF, she will need 1 day opiate prescription. I tried to print prescription this morning but printer needs new ink- UC aware. will defer to primary team to [...] Status: She is a (more content not included)...[facility]12-18-2024 NoteHNO ID: [id number] Author: BONITA LAMBERT RN Service: Care Management [...] 05/10. DC plan is to return to [facility]. Anticipate DC to SNF tomorrow. Patient is aware and states her daughter will be able to transport her tomorrow evening. SIGNATURE: Bonita Lambert RN PATIENT NAME: Aleena Andrea DATE: April 20, 2024 TIME: 4:17 [facility]12-18-2024 NoteHNO ID: [id number] Author: FRANCISCA SWANSON MD Service: Pain Management [...] CAD, CHF, osteoporosis, depression presented 04/13 from [place] ED for increased right hip pain and progressive wounds. CTAP from [place] showed right sided 8.5x8.3cm subcutaneous abscess extending [...] for SBO. Home pain regimen managed by [place] PM includes intrathecal pump (Dilaudid, baclofen) oxycodone [...] PRN Moni Worley MD 4 mg at 04/18/242239 bisacodyl 10 mg suppository (DULCOLAX) 10 mg [...] (PWD) 1 mg patient's own pump - [facility] placeholder INTRATHECAL CONTINUOUS Moni Worley MD traZODone [...] Rfl: , 04/14/2024 gabape (more content not included)...[facility]12-18-2024 Note HNO ID: [id number] Author: YUKO PUTNAM RN Service: PICC Team Author Type: Registered Nurse Type: Procedures Filed: 04/20/2024 09:56 Note Text: PICC NURSE INSERTION NOTE DATE OF PROCEDURE: April 20, 2024 TIME OF PROCEDURE: 929 ORDERING PHYSICIAN: maurizio INFORMED CONSENT: Obtained per hospital policy. INDICATION FOR LINE PLACEMENT: COPAT CONDITION OF LINE PLACEMENT: Sterile PRIMARY PROCEDURALIST: Alba Huang RN PARTY SUPPLY SPECIALIST: Yuko Hauser RN PRE-PROCEDURE REVIEW ALLERGIES Allergen [...] applicable. Yuko Hauser RN CATHETER PLACEMENT Brand: Einspect Lot: [id number] Number of Lumens: 1 Type of PICC: Power Injectable PICC Lumen Size: 4 Upper Sorbian PLACEMENT TECHNIQUE Lidocaine: Yes, Lidocaine 1% Volume [...] Given to patient QUESTIONS or PROBLEMS: Call [phone] SIGNATURE: Yuko Hauser RN PATIENT NAME: Aleena Andrea DATE: April 20, 2024 TIME: 9:44 AM PAGER/CONTACT PHONE:[facility]12-18-2024 NoteHNO ID: [id number] Author: JIM TORRES MD Service: ? Author Type: Physician Type: Progress Notes Filed: 04/20/2024 08:36 Note Text: [facility] Outpatient Parenteral Antimicrobial Therapy (OPAT) Start Form Patient Info Patient MRN Patient Name Address Date of [id number] Aleena Andrea [address] [facility] [id number] 1950 Start Date 04/20/2024 Physician Group [email or web address] Diagnosis Group Diagnosis Skin and Soft Tissue [...] Monitoring Treatment Course Jim Torres MD Address [address] [place] [address] Prescribing Provider's signature - electronically signed by Jim Torres MD on 04/20/24 at 8:36 AM[facility]12-18-2024 History of Present illness Narrative* Jim Torres MD - 04/20/2024 8:35 AM EST [facility]patient Parenteral Antimicrobial Therapy (OPAT) Start Form Patient Info Patient MRN Patient Name Address Date of [id number] Aleena Andrea [address] [facility] [address] [facility] [id number] 1950 Start Date 04/20/2024 Physician Group [facility]_kenneth Diagnosis Group Diagnosis Skin and Soft Tissue Infection: 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 IV Antibiotics Antibiotic Dose Frequency Stop Date Cefazolin 2 grams every 8 hours 05/10/2024 Lab Monitoring Plan Labs Frequency While on CBC/diff Creatinine every Supa every Thursday [facility] Yes Cath Care Protocol Flush [...] Monitoring Treatment Course Jim Torres MD Address [address] [place] [address] Prescribing Provider's signature - electronically signed by Jim Torres MD on 04/20/24 at 8:36 AM documented in this encounterEast [facility] Hospital12-18-2024 NoteHNO ID: [id number] Author: GUSTABO SALDIVAR MD Service: Hospital Medicine Author Type: Resident Type: Progress Notes Filed: 04/20/2024 19:44 Note Text: Attestation signed by Gustabo Saldivar MD at 04/20/2024 7:44 PM Attending Note I personally saw and examined the patient. I reviewed the resident's note. I agree with the resident's assessment and plan unless otherwise noted. Signature: Gustabo Saldivar MD Date: 04/20/2024 Time: 7:44 PM [facility] PROGRESS NOTE PATIENT NAME: Aleena Andrea ADMITTED [...] tizanidine, naproxen Patient presented to [facility] from [place] by EMS for hip pain for 1 week with progressive wounds on R hip. CTAP from [place] showed right sided 8.5x8.3cm subcutaneous abscess extending [...] 8.3 -> 8 Rare s aueus -Pansensitive Discovery Guide Updates Gen Surg - S/P OR for [...] obvious wounds or def (more content not included)...[facility]12-17-2024 NoteHNO ID: [id number] Author: FANI ALMODOVAR RPh Service: Pharmacy Author Type: Pharmacist Type: Plan of Care Filed: 04/19/2024 15:00 Note Text: PHARMACY MEDICATION REVIEW Patient Name: Aleena Andrea : 1950 The following medications were updated within the [facility] medication list: Medications ADDED to [facility] medication list Fiber one gummie - 1 daily Medications CHANGED on [facility] medication list Miralax 1 dose daily prn constipation Duloxetine 30 mg daily AM Duloxetine 60 mg daily PM APAP 325 mg - 2 qid prn pain Pain Pump Hydromorphone / baclofen Medications REMOVED from [facility] medication list Bisacodyl Amitriptyline Tizanidine Triamcinolone Baclofen tablet Additional comments: met with pt at bedside and reviewed [facility] records. The below information represents the best possible medication history: Yes Medication history completed by: Pharmacist: Fani Almodovar RPh Source of history: Patient: Reliability of source: Appears reliable, clearly identified: Medication name, Medication dose, Medication route, Medication frequency, Timing of last dose, and Indications, Outside hospital records - Name:[facility] records, Care Everywhere records, and [facility] Medication nonadherence identified: No barriers noted Reconciliation completed: Yes Completed by: IM Team All [facility] [facility] medications addressed by LIP Patient interested in Bedside Delivery Services or using OP Pharmacy at discharge? Unable to assess Preferred outpatient pharmacy: e- [facility] [place] [place] [address] - [address] - [phone] [facility] Allergies: Ziconotide Other: See Comments Comment:Aka [...] at bedtime. Facility-Administered Medications: None Charline MontanezD, [facility] 04/19/2024[facility]12-17-2024 NoteHNO ID: [id number] Author: PATRICK SHAIKH APRN.CRNA Service: Anesthesiology Author Type: Nurse Step Down Specialist Type: Anesthesia Procedure Notes Filed: 04/19/2024 11:12 Note Text: ANESTHESIOLOGY PROCEDURE NOTE Airway General Information Procedure Start Time/Medication Administration: 04/19/2024 10:57 AM Procedure End Time: 04/19/2024 10:57 AM Patient location during procedure: OR Timeout Performed Pre-procedure: timeout performed Consent Obtained: Yes Patient identity confirmed: arm band Staffing Performed by: ELECTRONICS ASSEMBLER Indications and Patient Condition Indications for airway management: anesthesia Preoxygenated: yes Patient position: sniffing Method: asleep Airway Accessory: LMA Final Airway Details Final airway type: supraglottic airway Number of attempts at approach: 1 Final Supraglottic Airway: i-gel Size 3 Seal Adequate: yes Airway not difficult SIGNATURE: Patrick Shaikh APRN.ELECTRONICS ASSEMBLER PATIENT NAME: Aleena Andrea DATE: April 19, 2024 TIME: 11:11 AM CSN: [id number] Center12-17-2024 NoteHNO ID: [id number] Author: FRANCISCA SWANSON MD Service: Pain Management [...] CAD, CHF, osteoporosis, depression presented 04/13 from [place] ED for increased right hip pain and progressive wounds. CTAP from [place] showed right sided 8.5x8.3cm subcutaneous abscess extending [...] for SBO. Home pain regimen managed by [place] PM includes intrathecal pump (Dilaudid, baclofen) oxycodone [...] (PWD) 1 mg patient's own pump - [facility] placeholder INTRATHECAL CONTINUOUS Moni Worley MD traZODone 100 mg tab(s) (DESYREL) 100 mg ORAL AT BEDTIME Moni Worley MD 100 mg at 04/18/24 2225 NaCl 0.9% iv flush bag 20 mL INTRAVENOUS PRN Moni Worley MD oxycodone HCl (OXYCODONE ORAL), Take 15 mg by mouth four times (more content not included)...[facility]12-17-2024 NoteHNO ID: [id number] Author: GUSTABO SALDIVAR MD Service: Hospital Medicine [...] of prolonged IV antibiotics. Disposition: Return to [facility] pending final surgical and ID plans. Signature: Gustabo Saldivar MD Date: 04/19/2024 Time: 5:03 PM [facility] PROGRESS NOTE PATIENT NAME: Aleena Andrea ADMITTED [...] amitriptyline, trazodone, tizanidine, naproxen Patient presented to [facility] from [place] [facility] by EMS for hip pain for 1 week with progressive wounds on R hip. CTAP from [place] showed right sided 8.5x8.3cm subcutaneous abscess extending [...] SpO2 94 on RA Hemoglobin 8.3 Micki s dulce Discovery Guide Updates Gen Surg IR noted reviewed, unable [...] weight. HENT: Head: Normoc (more content not included)...[facility] 04-18-2024 NoteHNO ID: [id number] Author: JENNIFER JEAN MD Service: General Surgery [...] add on for OR tomorrow. Jennifer Jean [facility]12-16-2024 NoteHNO ID: [id number] Author: BONITA LAMBERT RN Service: Care Management Author Type: Registered Nurse Type: Care Mgt Progress Note Filed: 04/18/2024 14:18 Note Text: CARE MANAGEMENT PROGRESS NOTE SERVICE DATE: 04/18/2024 SERVICE TIME: 2:13 PM LOS: 4 days Post-Acute Discharge Planning Patient Goal(s): Better mobility, Increase strength, General wellness [place] of Choice Explained: [place] of Choice Given: Yes Level of Care Discussed: Longterm Facility Discharge Planning Participant(s): Patient Patient/Family Comments: Anticipated # of Days Until Discharge: 3 Transport at Discharge: Transportation Arrangements: To Be Determined Needs Prior to Discharge: Needs Prior to Discharge: To Be Determined, Discharge Transportation Post-Acute Discharge Plan: Chart reviewed. Patient continues on IV abx. Anticipate CoPAT at DC, awaiting final ID recs. DC plan is to return to [facility] SNF. Anticipate patient will need transport given unable to transfer during last PT session. SIGNATURE: Bonita Lambert RN PATIENT NAME: Aleena Andrea DATE: April 18, 2024 TIME: 2:13 [facility]12-16-2024 NoteHNO ID: [id number] Author: GUSTABO SALDIVAR MD Service: Hospital Medicine Author Type: Resident Type: Progress Notes Filed: 04/18/2024 20:02 Note Text: Attestation signed by Gustabo Saldivar MD at 04/18/2024 8:02 PM Attending Note I personally saw and examined the patient. I reviewed the resident's note. I agree with the resident's assessment and plan unless otherwise noted. 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 [place] [facility] by EMS for hip pain for 1 week with progressive wounds on R hip. CTAP from [place] showed right sided 8.5x8.3cm subcutaneous abscess extending [...] reactive to light. Cardiovascular: (more content not included)...[facility] 04-17-2024 NoteHNO ID: [id number] Author: CASE PHAN MD Service: Hospital Medicine Author Type: Resident Type: Progress Notes Filed: 04/17/2024 19:40 Note Text: Attestation signed by Case Phan MD at 04/17/2024 7:40 PM [facility] HOSPITAL MEDICINE SERVICE ATTENDING ATTESTATION: I [...] for additional surgical recommendations. Case Phan MD [facility] PROGRESS NOTE PATIENT NAME: Aleena Andrea ADMITTED [...] amitriptyline, trazodone, tizanidine, naproxen Patient presented to [facility] from [place] [facility] by EMS for hip pain for 1 week with progressive wounds on R hip. CTAP from [place] showed right sided 8.5x8.3cm subcutaneous abscess extending [...] at 04/17/2024 0809 Last data filed at 04/16/2024 2048 Gross per 24 hour Intake -- Output [...] HB 8.0* 7.6* 8.4 (more content not included)...[facility] 04-17-2024 NoteHNO ID: [id number] Author: FRANCISCA SWANSON MD Service: Pain Management [...] CAD, CHF, osteoporosis, depression presented 04/13 from [place] ED for increased right hip pain and progressive wounds. CTAP from [place] showed right sided 8.5x8.3cm subcutaneous abscess extending [...] for SBO. Home pain regimen managed by [place] PM includes intrathecal pump (Dilaudid, baclofen) oxycodone [...] BEDTIME Rivas Vuong MD 0.1 mg at 04/16/24 204 mupirocin 2 % ointment (BACTROBAN) TOPICAL TID Serenity Lee MD Given at 04/17/24 0835 melatonin 3 mg tab(s) 3 mg ORAL DAILY (8 PM) Enrique Olsen MD, MD 3 mg at 04/16/24 204 diclofenac 1 % 4 g topical gel [...] 50 mcg INTRAVENOUS q 2 H PRN GhEnrique leo MD, MD 50 mcg at 04/16/242042 senna-docusate 8.6-50 mg 1 tablet (SENNA-S) 1 tablet ORAL BID Enrique Olsen MD, MD 1 tablet at 04/17/24 0835 polyethylene glycol 3350 17 g packet 17 g ORAL DAILY PRN Enrique Olsen MD, MD 17 g at 04/15/24 0854 HYDROmorphone (PWD) 1 mg patient's own pump - [facility] placeholder INTRATHECAL CONTINUOUS Enrique Olsen MD, MD [...] 90 mg b (more content not included)... [facility]12-14-2024 NoteHNO ID: [id number] Author: FRANCISCA SWANSON MD Service: Pain Management [...] CAD, CHF, osteoporosis, depression presented 04/13 from [place] ED for increased right hip pain and progressive wounds. CTAP from [place] showed right sided 8.5x8.3cm subcutaneous abscess extending [...] for SBO. Home pain regimen managed by [facility] includes intrathecal pump (Dilaudid, baclofen) oxycodone [...] Olsen MD, MD 5 mg at 04/15/24 183 cloNIDine HCl 0.2 mg tab(s) (CATAPRES) 0.2 [...] (PWD) 1 mg patient's own pump - [facility] placeholder INTRATHECAL CONTINUOUS Enrique Olsen MD, MD traZODone 100 mg tab(s) (DESYREL) 100 mg ORAL AT BEDTIME Enrique Olsen MD, 100 mg at 04/15/242053 NaCl 0.9% iv [...] 650 mg by m (more content not included)...[facility]12-14-2024 NoteHNO ID: [id number] Author: CASE PHAN MD Service: Hospital Medicine Author Type: Resident Type: Progress Notes Filed: 04/16/2024 21:01 Note Text: Attestation signed by Case Phan MD at 04/16/2024 9:01 PM [facility] ATTENDING ATTESTATION: I saw and [...] ID at this time. Case Phan MD [facility] PROGRESS NOTE PATIENT NAME: Aleena Andrea ADMITTED [...] tizanidine, naproxen Patient presented to [facility] from [place] by EMS for hip pain for 1 week with progressive wounds on R hip. CTAP from [place] showed right sided 8.5x8.3cm subcutaneous abscess extending [...] acute distress. Appearance: Norm (more content not included)...[facility] 04-16-2024 NoteHNO ID: [id number] Author: NOTE, INTERFACE, ? Service: ? Author Type: ? Type: Progress Notes Filed: 04/21/2024 16:04 Note Text: Epic Scheduled Downtime: 04/16/2024 1:00:00 AM to 04/16/2024 2:52:17 AM[facility]12-13-2024 NoteHNO ID: [id number] Author: BONITA LAMBERT, RN Service: Care Management [...] by: Per Department Practice Potential Transition Plans Longterm Facility/Intermediate Care Facility Advance Directives Current Advance Directive: Health Care Power of Health Information Coder In Chart: No Current Living Arrangements and [...] Goal(s): Better mobility, Increase strength, General wellness [place] of Choice Explained: [place] of Choice Given: Yes (patient would like to return to [facility]) Level of Care Discussed: Longterm Facility Are you interested in bedside delivery [...] with patient in room. Patient lives at [facility] in the Independent Living. She was admitted from the SNF at [facility] where she states she has been since Apr 04 or . Patient is typically independent but does not drive, is able to transfer self to her power w/c and has a hospital bed and shower bench. Anticipate patient to return to SNF LOC, requested therapy eval orders. Patient's daughter may transport via private w/c van at [place] if appropriate. Tasked for return referral to be sent to [facility]. SIGNATURE: Bonita Lambert RN PATIENT NAME: Aleena Andrea DATE: April 15, 2024 TIME: 11:42 [facility]12-13-2024 NoteHNO ID: [id number] Author: YISEL MOSES APRN.CHIEF METER READER Service: Pain Management Author Type: Nurse Specialist Type: Progress Notes Filed: 04/15/2024 11:42 Note Text: INPATIENT PAIN MANAGEMENT NOTE [facility] Aleena Andrea [id number]* Pain Management Diagnoses: Subcutaneous ischial/rectal abscess, history [...] Info per notes: The pump is a [employer] Synchromed II. Pump capacity is 20 cc. [...] CAD, CHF, osteoporosis, depression presented 04/13 from [facility] ED for increased right hip pain and progressive wounds. CTAP from [place] showed right sided 8.5x8.3cm subcutaneous abscess extending [...] for SBO. Home pain regimen managed by [facility] includes intrathecal pump (Dilaudid, baclofen) oxycodone [...] activity was identified. 04/15/2024 by Yisel Moses APRN.CHIEF METER READER Overdose Risk Score from OARRS: 130 71 [...] of status migrainosus Mononeuritis of unspecified site 3 Neuropathy Nonorganic sleep disorder, unspecified Nonspecific abnormal finding in stool contents Osteoporosis, unspecified Other causes of myelitis Other general symptoms(780.99) Paraplegia (HCC) PMH - PAST MEDICAL HISTORY OF transverse mylitis pos. spasticity Respiratory failure (HCC) Rosacea Transverse myelitis (HCC) Unspecified cause of encephalitis, myelitis, and encephalomyelitis Unspeci (more content not included)...[facility]12-13-2024 NoteHNO ID: [id number] Author: CASE PHAN MD Service: Hospital Medicine Author Type: Resident Type: Progress Notes Filed: 04/15/2024 21:24 Note Text: Attestation signed by Case Phan MD at 04/15/2024 9:24 PM (Updated) [facility] ATTENDING ATTESTATION: I saw and [...] if stooling not improving. Case Phan MD [facility] PROGRESS NOTE PATIENT NAME: Aleena Andrea ADMITTED [...] amitriptyline, trazodone, tizanidine, naproxen Patient presented to [facility] from [place] ED by EMS for hip pain for 1 week with progressive wounds on R hip. CTAP from [place] showed right sided 8.5x8.3cm subcutaneous abscess extending [...] membranes are moist. E (more content not included)...[facility]12-12-2024 NoteHNO ID: [id number] Author: NIXON MARTIN RN Service: Nursing Author Type: Registered Nurse Type: Nursing Progress Note Filed: 04/14/2024 17:12 Note Text: [facility] NoteHNO ID: [id number] Author: CASE PHAN MD Service: Hospital Medicine Author Type: Resident Type: Progress Notes Filed: 04/14/2024 21:23 Note Text: Attestation signed by Case Phan MD at 04/14/2024 9:23 PM [facility] ATTENDING ATTESTATION: I saw and [...] infection. Pain management consulted. Case Phan MD [facility] PROGRESS NOTE PATIENT NAME: Aleena Andrea ADMITTED [...] tizanidine, naproxen Patient presented to [facility] from [place] ED by EMS for hip pain for 1 week with progressive wounds on R hip. CTAP from [place] showed right sided 8.5x8.3cm subcutaneous abscess extending [...] per patient request Patient will follow up Que pain management as planned; she was due [...] normal. No respirato (more content not included)... [facility]12-03-2024 [facility]11-16-2021 Miscellaneous Notes* Telephone Encounter - Suma [...] she stay at 25 mg. Call back [phone]. * Telephone Encounter - Nidia Ken CMA - 01/24/2021 1:06 PM EDT Called and spoke with Rosibel at [facility] and cancelled prescription for the amitriptyline. * Telephone Encounter - Nidia Ken CMA - 01/24/2021 12:08 PM EDT Called and spoke with pt she stated understanding on the increase with the amitriptyline. She askedfor the new prescription to be sent over to [facility] in [place] instead of the [facility]. Will que [...] advise on next steps. documented in this [id number] Miscellaneous Notes* Telephone Encounter - Gi Frances [...] she stay at 25 mg. Call back [phone]. * Telephone Encounter - Nidia Ken CMA - 01/24/2021 1:06 PM EDT Called and spoke with Rosbiel at [facility] and cancelled prescription for the amitriptyline. * Telephone Encounter - Nidia Ken CMA - 01/24/2021 12:08 PM EDT Called and spoke with pt she stated understanding on the increase with the amitriptyline. She askedfor the new prescription to be sent over to [facility] in [place] instead of the [facility]. Will que [...] advise on next steps. documented in this [id number] Miscellaneous Notes* Telephone Encounter - Suma Fishman [...] she stay at 25 mg. Call back [phone]. * Telephone Encounter - Nidia Ken CMA - 01/24/2021 1:06 PM EDT Called and spoke with Rosibel at [facility] and cancelled prescription for the amitriptyline. * Telephone Encounter - Nidia Ken CMA - 01/24/2021 12:08 PM EDT Called and spoke with pt she stated understanding on the increase with the amitriptyline. She askedfor the new prescription to be sent over to [facility] in [place] instead of the [facility]. Will que [...] advise on next steps. documented in this [id number] Miscellaneous Notes* Telephone Encounter - Nidia Ken CMA - 01/24/2021 1:06 PM EDT Called and spoke with Rosibel at [facility] and cancelled prescription for the amitriptyline. * Telephone Encounter - Nidia Ken CMA - 01/24/2021 12:08 PM EDT Called and spoke with pt she stated understanding on the increase with the amitriptyline. She askedfor the new prescription to be sent over to [facility] in [place] instead of the [facility]. Will que [...] advise on next steps. documented in this [id number] Instructions* Patient Instructions* Analilia Oconnor DO - [...] months with Dr. Frances documented in this [id number] History of Present illness Narrative* Analilia Oconnor DO - 10/04/2020 1:17 PM EDT [facility] Clinic Follow Up [...] Date: 10/04/2020. Comparison Study Date: n/a. Study Location:[place], [place] protocol used: yes. Scanner Strength: 3T, [...] Date: 10/04/2020. Comparison Study Date: n/a. Study Location:[place], [place] protocol used: yes. Scanner Strength: 3T, [...] visit. 3. Please sign up for the [employer] patient portal. [facility] provides assess to your medical record and test results, allows you to communicate with your care providers, and allows you to complete patient questionnaires prior to each clinic visit. 4. When your testing is completed, your [place] care team will review all results and contact you if a finding requires follow up before your next visit. Otherwisee, we will discuss your test results [id number] at your next clinic visit. Many of your testing results, however, can be reviewed online through [employer] (now [employer]). PATIENT AND CAREGIVER EDUCATION I spent 30 [...] Neuroimmunology Fellow (PGY5) Neuroimmunology & Multiple Sclerosis [facility] [place] [address] [address], [place], [place] [email or web address] I have seen and examined [...] MPH System Chief Neuroimmunology & Multiple Sclerosis [facility] [address] [place] [address] Rd[address], [place], [place] [email or web address] documented in this [id number] Instructions* Patient Instructions* Analilia Oconnor, DO - 09/10/2020 1:27 PM EDT Aleena Andrea is a pleasant 70 y.o. Right-handed female referred for evaluation of andtreatment recommendations for Idiopathic Thoracic Transverse Myelitis. I recommend the following plan: PLAN 1. We will request initial 2000 MRI imaging and neurology records from [facility]. 2. Given persistent pain despite multiple [...] visit. 3. Please sign up for the Work[employer] patient portal. [employer] ([employer]) gives you controlled access to the same [employer] medical records your [facility] care team use, via browser or mobile kaya (for iOS and Android). Its allows you to review some of your testing results, and provides you with a communication link to your care providers. 4. Many of your test results can be reviewed online at any time through [employer] (now [employer]). Your [place] care team will review all results, but will only contact you if a finding requires urgent medical attention. Your Care team will always discuss your test results with you [id number] at your next clinic. I spent 90 [...] Neuroimmunology Fellow (PGY5) Neuroimmunology & Multiple Sclerosis [facility] S[facility] [address], [place], [place] [email or web address] documented in this [id number] History of Present illness Narrative* Analilia Oconnor DO - 09/10/2020 11:57 AM EDT [facility] NEW CONS[facility] 09/10/2020 I had the pleasure of evaluating Aleena Andrea in initial outpatient neurologic consultation at [facility] [place] today, 09/10/2020. As you know, she is a pleasant 70 y.o. Right-handed female referred by Dr. Beck for evaluation of and treatment recommendations for Tr ansverse Myelitis. She is accompanied today by her friend who helped participate in her history. Inpreparation for today's consultation I have personally reviewed hard copies of neuroimaging studies, relevant clinic notes and lab tests, as well as the [facility] MS cotopaxi new patient questionnaire. Chief Complaint: Transverse Myelitis [...] ended up going to the ED at [facility] and states that within a couple [...] No flowsheet data found. Review of systems: [facility] - 09/10/20 1103 General Change in weight [...] disease), CHF (congestive heart failure) ([facility]), Depression, Idiopathic transverse myelitis (HCC), Migraine, Neurogenic [...] No truncal ataxia noted with sitting. Normal jwwldw-dtsu-gygmcc and fine finger movements without evidence of [...] 2001 MRI imaging and neurology records from [facility]. 2. Given persistent pain despite multiple [...] visit. 3. Please sign up for the Workiva patient portal. [employer] ([employer]) gives you controlled access to the same [employer] medical records your [facility] care team use, via browser or mobile kaya (for iOS and Android). Its allows you to review some of your testing results, and provides you with a communication link to your care providers. 4. Many of your test results can be reviewed online at any time through [employer] (now [employer]). Your [place] care team will review all results, but will only contact you if a finding requires urgent medical attention. Your Care team will always discuss your test results with you [id number] at your next clinic. I spent 90 [...] Neuroimmunology Fellow (PGY5) Neuroimmunology & Multiple Sclerosis [facility] [address] [place] [address] Rd[address], [place], [place] [email or web address] I have seen and examined patient [...] MPH System Chief Neuroimmunology & Multiple Sclerosis [facility] [address] [place] [address] Rd[address], [place], [place] [email or web address] documented in this encounterOhHealthEvaluation note* Diagnosis Transverse myelitis (HCC)- Primary Other causes of myelitis Neuropathic pain Vitamin D deficiency [facility] Diagnosis Transverse myelitis (HCC) Other causes of myelitis [facility] Diagnosis Transverse myelitis (HCC)- Primary Other causes of myelitis Neuropathic pain Vitamin D deficiency Other specified disorders involving the immune mechanism, 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) [facility]* Diagnosis Neuropathic pain- Primary [facility]* Diagnosis Neuropathic pain- Primary [facility]* Diagnosis Neuropathic pain- Primary [facility]* Diagnosis Neuropathic pain- Primary [facility]* Diagnosis Onset Date Resolution Status Pressure [...] bladder chronic Transverse myelitis chronic Urinary retention [facility] Work Phone: Evaluation note* Diagnosis [...] bladder chronic Transverse myelitis chronic Urinary retention [facility] Work Phone: Evaluation note* Diagnosis [...] bladder chronic Transverse myelitis chronic Urinary retention [facility] Work Phone: Evaluation note* Diagnosis [...] chronic Transverse myelitis chronic Urinary retention chronic [facility] Work Phone: Evaluation note* Diagnosis Onset [...] bladder chronic Transverse myelitis chronic Urinary retention [facility] Work Phone: Evaluation note* Diagnosis Onset Date Resolution Status Anxiety and depression chron ic Chronic back pain chronic Chronic constipation chronic Neurogenic bladder chronic Paraplegia chronic Chronic back pain chronic Chronic constipation chronic Neurogenic bladder chronic Paraplegia chronic Iron (Fe) deficiency anemia acute Chronic constipation chronic GI bleed [facility] Work Phone: Evaluation note* Diagnosis Onset Date Resolution Status Anxiety and depression chron ic Chronic back pain chronic Chronic constipation chronic Neurogenic bladder chronic Paraplegia chronic Chronic back pain chronic Chronic constipation chronic Neurogenic bladder chronic Paraplegia chronic Chronic constipation chronic Iron deficiency anemia due to chronic blood loss [facility] Work Phone: Evaluation note* Diagnosis Onset Date Resolution Status Chronic back pain chronic Chronic constipation chronic Neurogenic bladder chronic Paraplegia chronic Chronic constipation chronic Iron deficiency anemia due to chronic blood loss chronic Iron deficiency anemia due to chronic blood loss [facility] Work Phone: Evaluation note* Diagnosis Onset Date Resolution Status Iron deficiency anemia due to chronic blood loss chronic Intestinal ulcer acute Chronic constipation chronic Iron deficiency anemia due to chronic blood loss [facility] Work Phone: Evaluation note* Diagnosis Onset Date Resolution Status Iron deficiency anemia due to chronic blood loss chronic Chronic constipation chronic Intestinal ulcer [facility] Work Phone: Evaluation note* Diagnosis Onset Date Resolution Status Iron deficiency anemia due to chronic blood loss [facility] Work Phone: Reason for referral (narrative)No reason for referral information [facility]WC[facility] Work Phone: Instructions Name Dates Details [...] myelitis (HCC) Paraplegia (HCC) Cara Beck DO [address] [place], [place] [phone] Gi Frances MD [address] [place] [address] Status Reason Specialty Diagnoses / Procedures Referred By Contact Referred To Contact Authorized Radiology Diagnoses Transverse myelitis (HCC) Procedures MR Thoracic Spine With And Without Contrast Gi Frances MD [address] [place] [address] [place] [address] Status Reason Specialty Diagnoses / Procedures Referred By Contact Referred To Contact Authorized Radiology Diagnoses Transverse myelitis (HCC) Procedures MR Cervical Spine With And Without Contrast Gi Frances MD [address] [facility] [address] [place] [address] Status Reason Specialty Diagnoses / Procedures Referred By Contact Referred To Contact Closed Radiology Diagnoses Transverse myelitis (HCC) Procedures MR Cervical Spine With And Without Contrast Gi Frances MD [address] [facility] [address] [place] [address] Assessments Diagnosis Transverse myelitis (HCC)- Primary Other causes of myelitis Paraplegia (HCC) Paraplegia Advance Directives No Advanced Directives Records Found Date Activated Date Inactivated Comments 04/14/2024 5:13 AM 04/22/2024 9:56 PM Question Answer Comments Full Code Order Discussed With: Patient Documents on File Type Date Recorded Patient Organ Fixer Expl anation Advance Directives and Living Will Documents on File Type Date Recorded Patient Organ Fixer Expl anation Advance Directives and Living Will Documents on File Type Date Recorded Patient Organ Fixer Expl anation Advance Directives and Livin g Will 10/04/2020 7:42 AM Documents on File Type Date Recorded Patient Organ Fixer Expl anation Advance Directives and Livin g Will 10/04/2020 7:42 AM Advance Directive Response Recorded Date/ Time Advance Directives Yes April 12:39pm Living Will Yes June 19 9:07am Power of Health Information Coder Yes June 19, 2021 9:07am Advance Directive Response Recorded Date/ Time Advance Directives Yes April 12:39pm Living Will No December 26 11:54am Power of Health Information Coder No December 26 11:54am Advance Directive Response Recorded Date/ Time Advance Directives Yes December 27, 2021 9:14am Living Will No December 27 9:14am Power of Health Information Coder No December 27 9:14am Advance Directive Response Recorded Date/ Time Advance Directives Yes January 3:45pm Living Will No Yolande 8th, 2 022 3:45pm Power of Health Information Coder No January 09, 2022 3:45pm Advance Directive Response Recorded Date/ Time Advance Directives Yes December 27, 2021 9:14am Living Will No March 03 12:22pm Power of Health Information Coder No March 03, 2022 12:22pm Advance Directive Response Recorded Date/ Time Advance Directives Yes December 27, 2021 8:14am Living Will No March 03 11:22am Power of Health Information Coder No March 03, 2022 11:22am Advance Directive Response Recorded Date/ Time Name of Medical Power of Health Information Coder DAUGHTER BELA March 19, 2023 9:22am Advance Directives Yes December 27, 2021 8:14am Living Will Yes March 19 023 9:22am Power of Health Information Coder Yes March 19, 2023 9:22am Date Activated Date Inactivated Comments 04/14/2024 5:13 AM Advance Directive Response Recorded Date/ Time Living Will Yes March 19 10:22am Do you have a Healthcare Power of Health Information Coder? Yes March 19, 2023 10:22am Living Will Yes January 04 024 3:03pm Do you have a Healthcare Power of Health Information Coder? Yes January 05, 2024 3:03pm Living Will Yes June 04 2:56am Do you have a Healthcare Power of Health Information Coder? Yes June 04, 2024 2:56am Living Will Yes July 02, 2024 2:12am Do you have a Healthcare Power of Health Information Coder? Yes July 02, 2024 2:12am Living Will Yes August 02, 2024 12:45am Do you have a Healthcare Power of Health Information Coder? Yes August 02, 2024 12:45am Living Will Yes September 01, 2024 12 :36am Do you have a Healthcare Power of Health Information Coder? Yes September 01, 2024 12:36am Advance Directives Yes December 27, 2021 9:14am Advance Directive Response Recorded Date/ Time Living Will Yes March 19 023 10:22am Do you have a Healthcare Power of Health Information Coder? Yes March 19, 2023 10:22am Living Will Yes January 04 3:03pm Do you have a Healthcare Power of Health Information Coder? Yes January 05, 2024 3:03pm Living Will Yes July 02, 2024 2:12am Do you have a Healthcare Power of Health Information Coder? Yes July 02, 2024 2:12am Living Will Yes August 02, 2024 12:45am Do you have a Healthcare Power of Health Information Coder? Yes August 02, 2024 12:45am Living Will Yes September 01, 2024 12 :36am Do you have a Healthcare Power of Health Information Coder? Yes September 01, 2024 12:36am Living Will Yes October 02, 2024 1 2:38am Do you have a Healthcare Power of Health Information Coder? Yes October 02, 2024 12:38am Advance Directives Yes December 27, 2021 9:14am Advance Directive Response Recorded Date/ Time Living Will Yes September 01, 2024 12 :36am Do you have a Healthcare Power of Health Information Coder? Yes September 01, 2024 12:36am Living Will Yes October 02, 2024 1 2:38am Do you have a Healthcare Power of Health Information Coder? Yes October 02, 2024 12:38am Advance Directives [...] myelitis (HCC) Paraplegia (HCC) Cara Beck DO [address] [place] [address] Gi Frances MD [address] [place] [address] Status Reason Specialty Diagnoses / Procedures Referred By Contact Referred To Contact Closed Radiology Diagnoses Transverse myelitis (HCC) Procedures MR Cervical Spine With And Without Contrast Gi Frances MD [address] [place] [address] Reason Onset Date Comments Medication Refill 03/18/2021 Reason Comments CoPat Start Reason Comments Results Reason Comments CoPat Management Reason Comments CoPat Stop Care Teams (unrecognized sec tion and content) Slate Trimmer Relationship Specialty Start Date End Date Cara Beck DO [facility] [place] [phone] PCP - General Family Medicine 09/10/20 Slate Trimmer Relationship Specialty Start Date End Date Cara Beck, DO [address] [place] [address] PCP - General Family Medicine 09/10/20 Slate Trimmer Relationship Specialty Start Date End Date Cara Beck DO [address] [place] [address] PCP - General Family Medicine 09/10/20 Slate Trimmer Relationship Specialty Start Date End Date Cara Beck, DO [address] [place] [address] PCP - General Family Medicine 09/10/20 Team [...] Casie Trevizo MD Primary Care Provider Active KARINA GARCIA Attending Provider Active Team Status: Active Member Role Status Dates Dr. Cara Arce MD Family Provider Active [place] Primary Care Provider A ctive Team Status: Inactive Member Role Status Dates Dr. Casie Trevizo MD Referring Provider Active Dr. Stef Ewing DO Attending Provider Active Cara PALM MD Primary Care Provider Active Team Status: Inactive Member Role Status Dates Cara PALM MD Primary Care Provider Active Dr. Stef Ewing DO Attending Provider Active Team Status: Inactive Member Role Status Dates [place] Primary Care Provider A ctive Dr. Casie Trevizo MD Attending Provider, Referring P rovimatilda Active Team Status: Active Member Role Status Dates [place] Primary Care Provider A ctive Ingrid Grimaldo [employer], [employer] Attending Provider, Referrin g Provider Active Team [...] Corona MD Attending Provider, Referring Provider Active Slate Trimmer Relationship Specialty Start Date End Date Cara Arce MD [address] [facility] [place] [address] PCP - General 03/06/01 Slate Trimmer Relationship Specialty Start Date End Date Cara Arce MD [address] [facility] [place] [address] PCP - General 03/06/01 Slate Trimmer Relationship Specialty Start Date End Date Cara Arce MD [address] [place], [place] [address] PCP - General 03/06/01 Slate Trimmer Relationship Specialty Start Date End Date Cara Arce MD [address] [place] [address] PCP - General 03/06/01 Team Status: Active Member Role Status Dates Dr. Casie Trevizo MD Primary Care Provider Active Team Status: Active Member Role Status Dates Dr. Casie Trevizo MD Primary Care Provider Active Start: June 08, 2024 Dr. Casie Trevizo MD Referring Provider Active Start: June 08, 2024 Evelyn Robertson [employer], [employer] Attending Provider Active Start: June 08, 2024 Evelyn Robertson [employer], [employer] Other Provider Active S tart: June 08, [...] Active Start: June 15, 2024 Evelyn Robertson [employer], [employer] Other Provider Active S tart: June 15, 2024 Brooke Pool [employer], [employer] Attending Provider Active Start: June 15, 2024 Brooke Pool [employer], [employer] Referring Provider Active Start: June 15, 2024 [...] Active Start: June 22, 2024 Evelyn Robertson [employer], [employer] Attending Provider Active Start: June 22, 2024 Evelyn Robertson [employer], [employer] Other Provider Active S tart: June 22, [...] 2024 End: July 01, 2024 Evelyn Robertson [employer], [employer] Attending Provider Active Start: June 29, 2024 End: July 01, 2024 Team Status: Active Member Role Status Dates Dr. Casie Trevizo MD Primary Care Provider Active Start: June 29, 2024 Dr. Casie Trevizo MD Referring Provider Active Start: June 29, 2024 Evelyn Robertson [employer], [employer] Attending Provider Active Start: June 29, 2024 Evelyn Robertson [employer], [employer] Other Provider Active S tart: June 29, [...] Active Start: July 06, 2024 Evelyn Robertson PROTOTYPE [employer], [employer] Other Provider Active S tart: July 06, [...] Active Start: July 13, 2024 Evelyn Robertson [employer], [employer] Attending Provider Active Start: July 13, 2024 Evelyn Robertson [employer], [employer] Other Provider Active S tart: July 13, 2024 Team Status: Active Member Role Status Dates Dr. Casie Trevizo MD Primary Care Provider Active Start: July 14, 2024 Sukumar PALM MD Attending Provider Active Start: July 14, 2024 Team Status: Active Member Role Status Dates Dr. Casie Trevizo MD Primary Care Provider Active Start: July 18, 2024 Evelyn Robertson [employer], [employer] Other Provider Active S tart: July 18, 2024 Dr. Aiden Bartholomew MD Attending Provider Active Start: July 18, 2024 Dr. Aiden Bartholomew MD Referring Provider Active Start: July 18, 2024 Team Status: Inactive Member Role Status Dates Dr. Casie Trevizo MD Primary Care Provider Active Start: July 20, 2024 End: July 20, 2024 Ally Duron [employer], [employer] Attending Provider Active Start: July 20, 2024 [...] 2024 End: August 01, 2024 Evelyn Robertson [employer], [employer] Attending Provider Active Start: July 27, 2024 End: August 01, 2024 Team Status: Active Member Role Status Dates Dr. Casie Trevizo MD Primary Care Provider Active Start: July 27, 2024 Dr. Casie Trevizo MD Referring Provider Active Start: July 27, 2024 Evelyn Robertson [employer], [employer] Attending Provider Active Start: July 27, 2024 Evelyn Robertson [employer], [employer] Other Provider Active S tart: July 27, 2024 Team Status: Active Member Role Status Dates Dr. Casie Trevizo MD Primary Care Provider Active Start: August 03, 2024 Dr. Casie Trevizo MD Referring Provider Active Start: August 03, 2024 Evelyn Robertson [employer], [employer] Attending Provider Active Start: August 03, 2024 Evelyn Robertson [employer], [employer] Other Provider Active S tart: August 03, 2024 Team Status: Active Member Role Status Dates Dr. Casie Trevizo MD Primary Care Provider Active Start: August 10, 2024 Dr. Casie Trevizo MD Referring Provider Active Start: August 10, 2024 Evelyn Robertson [employer], [employer] Attending Provider Active Start: August 10, 2024 Evelyn Robertson [employer], [employer] Other Provider Active S tart: August 10, 2024 Team Status: Active Member Role Status Dates Dr. Casie Trevizo MD Primary Care Provider Active Start: August 17, 2024 Dr. Casie Trevizo MD Referring Provider Active Start: August 17, 2024 Evelyn Robertson [employer], [employer] Attending Provider Active Start: August 17, 2024 Evelyn Robertson [employer], [employer] Other Provider Active S tart: August 17, 2024 Team Status: Active Member Role Status Dates Dr. Casie Trevizo MD Primary Care Provider Active Start: August 24, 2024 Dr. Casie Trevizo MD Referring Provider Active Start: August 24, 2024 Evelyn Robertson [employer], [employer] Attending Provider Active Start: August 24, 2024 Evelyn Robertson [employer], [employer] Other Provider Active S tart: August 24, 2024 Team Status: Inactive Member Role Status Dates Dr. Casie Trevizo MD Primary Care Provider Active Start: August 31, 2024 End: August 31, 2024 Dr. Casie Trevizo MD Referring Provider Active Start: August 31, 2024 End: August 31, 2024 Evelyn Robertson [employer], [employer] Attending Provider Active Start: August 31, 2024 End: August 31, 2024 Team Status: Active Member Role Status Dates Dr. Casie Trevizo MD Primary Care Provider Active Start: August 31, 2024 Dr. Casie Trevizo MD Referring Provider Active Start: August 31, 2024 Evelyn Robertson [employer], [employer] Attending Provider Active Start: August 31, 2024 Evelyn Robertson [employer], [employer] Other Provider Active S tart: August 31, 2024 Team Status: Active Member Role Status Dates Dr. Casie Trevizo MD Primary Care Provider Active Start: September 07, 2024 Dr. Casie Trevizo MD Referring Provider Active Start: September 07, 2024 Evelyn Robertson [employer], [employer] Attending Provider Active Start: September 07, 2024 Evelyn Robertson [employer], [employer] Other Provider Active S tart: September 07, 2024 Team Status: Active Member Role Status Dates Dr. Casie Trevizo MD Primary Care Provider Active Start: September 14, 2024 Dr. Casie Trevizo MD Referring Provider Active Start: September 14, 2024 Evelyn Robertson [employer], [employer] Attending Provider Active Start: September 14, 2024 Evelyn Robertson [employer], [employer] Other Provider Active S tart: September 14, 2024 Team Status: Active Member Role Status Dates Dr. Casie Trevizo MD Primary Care Provider Active Start: September 21, 2024 Dr. Casie Trevizo MD Referring Provider Active Start: September 21, 2024 Evelyn Robertson [employer], [employer] Attending Provider Active Start: September 21, 2024 Evelyn Robertson [employer], [employer] Other Provider Active S tart: September 21, 2024 Team Status: Inactive Member Role Status Dates Dr. Casie Trevizo MD Primary Care Provider Active Start: September 28, 2024 End: October 01, 2024 Dr. Casie Trevizo MD Referring Provider Active Start: September 28, 2024 End: October 01, 2024 Evelyn Robertson [employer], [employer] Attending Provider Active Start: September 28, 2024 End: October 01, 2024 Team Status: Active Member Role Status Dates Dr. Casie Trevizo MD Primary Care Provider Active Start: September 28, 2024 Dr. Casie Trevizo MD Referring Provider Active Start: September 28, 2024 Evelyn Robertson [employer], [employer] Attending Provider Active Start: September 28, 2024 Evelyn Robertson [employer], [employer] Other Provider Active S tart: September 28, [...] Active Start: July 06, 2024 Evelyn Robertson [employer], [employer] Other Provider Active S tart: July 06, [...] Active Start: July 13, 2024 Evelyn Robertson [employer], [employer] Attending Provider Active Start: July 13, 2024 Evelyn Robertson [employer], [employer] Other Provider Active S tart: July 13, 2024 Team Status: Active Member Role/Relationship Status Dates Dr. Casie Trevizo MD Primary Care Provider Active Start: July 14, 2024 Sukumar PALM MD Attending Provider Active Start: July 14, 2024 Team Status: Active Member Role/Relationship Status Dates Dr. Casie Trevizo MD Primary Care Provider Active Start: July 18, 2024 Evelyn Robertson [employer], [employer] Other Provider Active S tart: July 18, 2024 Dr. Aiden Bartholomew MD Attending Provider Active Start: July 18, 2024 Dr. Aiden Bartholomew MD Referring Provider Active Start: July 18, 2024 Team Status: Inactive Member Role/Relationship Status Dates Dr. Casie Trevizo MD Primary Care Provider Active Start: July 20, 2024 End: July 20, 2024 Ally Duron [employer], [employer] Attending Provider Active Start: July 20, 2024 [...] 2024 End: August 01, 2024 Evelyn Robertson [employer], [employer] Attending Provider Active Start: July 27, 2024 End: August 01, 2024 Team Status: Active Member Role/Relationship Status Dates Dr. Casie Trevizo MD Primary Care Provider Active Start: July 27, 2024 Dr. Casie Trevizo MD Referring Provider Active Start: July 27, 2024 Evelyn Robertson [employer], [employer] Attending Provider Active Start: July 27, 2024 Evelyn Robertson [employer], [employer] Other Provider Active S tart: July 27, 2024 Team Status: Active Member Role/Relationship Status Dates Dr. Casie Trevizo MD Primary Care Provider Active Start: August 03, 2024 Dr. Casie Trevizo MD Referring Provider Active Start: August 03, 2024 Evelyn Robertson [employer], [employer] Attending Provider Active Start: August 03, 2024 Evelyn Robertson [employer], [employer] Other Provider Active S tart: August 03, 2024 Team Status: Active Member Role/Relationship Status Dates Dr. Casie Trevizo MD Primary Care Provider Active Start: August 10, 2024 Dr. Casie Trevizo MD Referring Provider Active Start: August 10, 2024 Evelyn Robertson [employer], [employer] Attending Provider Active Start: August 10, 2024 Evelyn Robertson [employer], [employer] Other Provider Active S tart: August 10, 2024 Team Status: Active Member Role/Relationship Status Dates Dr. Casie Trevizo MD Primary Care Provider Active Start: August 17, 2024 Dr. Casie Trevizo MD Referring Provider Active Start: August 17, 2024 Evelyn Robertson [employer], [employer] Attending Provider Active Start: August 17, 2024 Evelyn Robertson [employer], [employer] Other Provider Active S tart: August 17, 2024 Team Status: Active Member Role/Relationship Status Dates Dr. Casie Trevizo MD Primary Care Provider Active Start: August 24, 2024 Dr. Casie Trevizo MD Referring Provider Active Start: August 24, 2024 Evelyn Robertson [employer], [employer] Attending Provider Active Start: August 24, 2024 Evelyn Robertson [employer], [employer] Other Provider Active S tart: August 24, 2024 Team Status: Inactive Member Role/Relationship Status Dates Dr. Casie Trevizo MD Primary Care Provider Active Start: August 31, 2024 End: August 31, 2024 Dr. Casie Trevizo MD Referring Provider Active Start: August 31, 2024 End: August 31, 2024 Evelyn Robertson [employer], [employer] Attending Provider Active Start: August 31, 2024 End: August 31, 2024 Team Status: Active Member Role/Relationship Status Dates Dr. Casie Trevizo MD Primary Care Provider Active Start: August 31, 2024 Dr. Casie Trevizo MD Referring Provider Active Start: August 31, 2024 Evelyn Robertson [employer], [employer] Attending Provider Active Start: August 31, 2024 Evelyn Robertson [employer], [employer] Other Provider Active S tart: August 31, 2024 Team Status: Active Member Role/Relationship Status Dates Dr. Casie Trevizo MD Primary Care Provider Active Start: September 07, 2024 Dr. Casie Trevizo MD Referring Provider Active Start: September 07, 2024 Evelyn Robertson [employer], [employer] Attending Provider Active Start: September 07, 2024 Evelyn Robertson [employer], [employer] Other Provider Active S tart: September 07, 2024 Team Status: Active Member Role/Relationship Status Dates Dr. Casie Trevizo MD Primary Care Provider Active Start: September 14, 2024 Dr. Casie Trevizo MD Referring Provider Active Start: September 14, 2024 Evelyn Robertson [employer], [employer] Attending Provider Active Start: September 14, 2024 Evelyn Robertson [employer], [employer] Other Provider Active S tart: September 14, 2024 Team Status: Active Member Role/Relationship Status Dates Dr. Casie Trevizo MD Primary Care Provider Active Start: September 21, 2024 Dr. Casie Trevizo MD Referring Provider Active Start: September 21, 2024 Evelyn Robertson [employer], [employer] Attending Provider Active Start: September 21, 2024 Evelyn Robertson [employer], [employer] Other Provider Active S tart: September 21, 2024 Team Status: Inactive Member Role/Relationship Status Dates Dr. Casie Trevizo MD Primary Care Provider Active Start: September 28, 2024 End: October 01, 2024 Dr. Casie Trevizo MD Referring Provider Active Start: September 28, 2024 End: October 01, 2024 Evelyn Robertson [employer], [employer] Attending Provider Active Start: September 28, 2024 End: October 01, 2024 Team Status: Active Member Role/Relationship Status Dates Dr. Casie Trevizo MD Primary Care Provider Active Start: September 28, 2024 Dr. Casie Trevizo MD Referring Provider Active Start: September 28, 2024 Evelyn Robertson [employer], [employer] Attending Provider Active Start: September 28, 2024 Evelyn Robertson [employer], [employer] Other Provider Active S tart: September 28, 2024 Team Status: Active Member Role/Relationship Status Dates Dr. Casie Trevizo MD Primary Care Provider Active Start: October 05, 2024 Dr. Casie Trevizo MD Referring Provider Active Start: October 05, 2024 Evelyn Robertson [employer], [employer] Attending Provider Active Start: October 05, 2024 Evelyn Robertson [employer], [employer] Other Provider Active S tart: October 05, 2024 Team Status: Inactive Member Role/Relationship Status Dates Dr. Casie Trevizo MD Primary Care Provider Active Start: October 12, 2024 End: October 31, 2024 Dr. Casie Trevizo MD Referring Provider Active Start: October 12, 2024 End: October 31, 2024 Evelyn Robertson [employer], [employer] Attending Provider Active Start: October 12, 2024 End: October 31, 2024 Team Status: Active Member Role/Relationship Status Dates Dr. Casie Trevizo MD Primary Care Provider Active Start: October 12, 2024 Dr. Casie Trevizo MD Referring Provider Active Start: October 12, 2024 Evelyn Robertson [employer], [employer] Attending Provider Active Start: October 12, 2024 Evelyn Robertson [employer], [employer] Other Provider Active S tart: October 12, 2024 Team Status: Active Member Role/Relationship Status Dates Ye Hoffman MD Primary Care Provider Active Team Status: Active Member Role/Relationship Status Dates Dr. Casie Trevizo MD Primary Care Provider Active Start: September 07, 2024 Dr. Casie Trevizo MD Referring Provider Active Start: September 07, 2024 Evelyn Robertson [employer], [employer] Attending Provider Active Start: September 07, 2024 Evelyn Robertson [employer], [employer] Other Provider Active S tart: September 07, 2024 Team Status: Active Member Role/Relationship Status Dates Dr. Casie Trevizo MD Primary Care Provider Active Start: September 14, 2024 Dr. Casie Trevizo MD Referring Provider Active Start: September 14, 2024 Evelyn Robertson [employer], [employer] Attending Provider Active Start: September 14, 2024 Evelyn Robertson [employer], [employer] Other Provider Active S tart: September 14, 2024 Team Status: Active Member Role/Relationship Status Dates Dr. Casie Trevizo MD Primary Care Provider Active Start: September 21, 2024 Dr. Casie Trevizo MD Referring Provider Active Start: September 21, 2024 Evelyn Robertson [employer], [employer] Attending Provider Active Start: September 21, 2024 Evelyn Robertson [employer], [employer] Other Provider Active S tart: September 21, 2024 Team Status: Inactive Member Role/Relationship Status Dates Dr. Casie Trevizo MD Primary Care Provider Active Start: September 28, 2024 End: October 01, 2024 Dr. Casie Trevizo MD Referring Provider Active Start: September 28, 2024 End: October 01, 2024 Evelyn Robertson [employer], [employer] Attending Provider Active Start: September 28, 2024 End: October 01, 2024 Team Status: Active Member Role/Relationship Status Dates Dr. Casie Trevizo MD Primary Care Provider Active Start: September 28, 2024 Dr. Casie Trevizo MD Referring Provider Active Start: September 28, 2024 Evelyn Robertson [employer], [employer] Attending Provider Active Start: September 28, 2024 Evelyn Robertson [employer], [employer] Other Provider Active S tart: September 28, 2024 Team Status: Active Member Role/Relationship Status Dates Dr. Casie Trevizo MD Primary Care Provider Active Start: October 05, 2024 Dr. Casie Trevizo MD Referring Provider Active Start: October 05, 2024 Evelyn Robertson [employer], [employer] Attending Provider Active Start: October 05, 2024 Evelyn Robertson [employer], [employer] Other Provider Active S tart: October 05, 2024 Team Status: Inactive Member Role/Relationship Status Dates Dr. Casie Trevizo MD Primary Care Provider Active Start: October 12, 2024 End: October 31, 2024 Dr. Casie Trevizo MD Referring Provider Active Start: October 12, 2024 End: October 31, 2024 Evelyn Robertson [employer], [employer] Attending Provider Active Start: October 12, 2024 End: October 31, 2024 Team Status: Active Member Role/Relationship Status Dates Dr. Casie Trevizo MD Primary Care Provider Active Start: October 12, 2024 Dr. Casie Trevizo MD Referring Provider Active Start: October 12, 2024 Evelyn Robertson [employer], [employer] Attending Provider Active Start: October 12, 2024 Evelyn Robertson [employer], [employer] Other Provider Active S tart: October 12, [...] Active Start: September 21, 2024 Evelyn Robertson [employer], [employer] Attending Provider Active Start: September 21, 2024 Evelyn Robertson [employer], [employer] Other Provider Active S tart: September 21, 2024 Team Status: Inactive Member Role/Relationship Status Dates Dr. Casie Trevizo MD Primary Care Provider Active Start: September 28, 2024 End: October 01, 2024 Dr. Casie Trevizo MD Referring Provider Active Start: September 28, 2024 End: October 01, 2024 Evelyn Robertson [employer], [employer] Attending Provider Active Start: September 28, 2024 End: October 01, 2024 Team Status: Active Member Role/Relationship Status Dates Dr. Casie Trevizo MD Primary Care Provider Active Start: September 28, 2024 Dr. Casie Trevizo MD Referring Provider Active Start: September 28, 2024 Evelyn Robertson [employer], [employer] Attending Provider Active Start: September 28, 2024 Evelyn Robertson [employer], [employer] Other Provider Active S tart: September 28, 2024 Team Status: Active Member Role/Relationship Status Dates Dr. Casie Trevizo MD Primary Care Provider Active Start: October 05, 2024 Dr. Casie Trevizo MD Referring Provider Active Start: October 05, 2024 Evelyn Robertson [employer], [employer] Attending Provider Active Start: October 05, 2024 Evelyn Robertson [employer], [employer] Other Provider Active S tart: October 05, 2024 Team Status: Inactive Member Role/Relationship Status Dates Dr. Casie Trevizo MD Primary Care Provider Active Start: October 12, 2024 End: October 31, 2024 Dr. Casie Trevizo MD Referring Provider Active Start: October 12, 2024 End: October 31, 2024 Evelyn Robertson [employer], [employer] Attending Provider Active Start: October 12, 2024 End: October 31, 2024 Team Status: Active Member Role/Relationship Status Dates Dr. Casie Trevizo MD Primary Care Provider Active Start: October 12, 2024 Dr. Casie Trevizo MD Referring Provider Active Start: October 12, 2024 Evelyn Robertson [employer], [employer] Attending Provider Active Start: October 12, 2024 Evelyn Robertson [employer], [employer] Other Provider Active S tart: October 12, [...] section and content) DATE CREATED AUTHOR 04/08/2021 [facility] DATE CREATED AUTHOR AUTHOR'S ORGANIZ ATION 05/12/2024 [facility] DATE CREATED AUTHOR AUTHOR'S ORGANIZ ATION 05/19/2024 [facility] DATE CREATED AUTHOR AUTHOR'S ORGANIZ ATION 03/16/2025 [facility] Goals (unrecognized section and content) Goals [...] or prosecute any alcohol or drug abuse patient.[facility] the event this information is protected by the Federal Confidentiality of Alcohol and Drug Abuse Patient Records regulations: The Federal rules restrict any use of the information to criminally investigate or prosecute any alcohol or drug abuse patient.[facility] the event this information is protected by the Federal Confidentiality of Alcohol and Drug Abuse Patient Records regulations: The Federal rules restrict any use of the information to criminally investigate or prosecute any alcohol or drug abuse patient.[facility] the event this information is protected by the Federal Confidentiality of Alcohol and Drug Abuse Patient Records regulations: The Federal rules restrict any use of the information to criminally investigate or prosecute any alcohol or drug abuse patient.[facility] FOR RECORDS PERTAINING TO PATIENTS WHO [...] BE BASED ON THE PRIMARY CLINICAL RECORDS. [facility] [employer] [facility]. provides no warranty or guarantee of the accuracy or completeness of information in this document.
[2025-04-26] MEDS: Lactated Ringers 1,000 ML 15 ML IV (13:00)
--- NOTE | 2025-04-26 13:06 | PCM.HP.STD ---
HPI - General General Date of Admission: 04/26/25 Date of Service: 04/26/25 HPI Narrative ALEENA ANDREA, is a 74 F who presents [Chief Complaint: Anemia [facility] visit 05.06.22 for anemia and first-degree relative colon cancer. Biochemical workup. Continue PO iron ? Biochemical workup CBC (hgb 12.1), iron, TIBC, ferritin, LDH, haptoglobin, GAME, TAB without pertinent abnormality. ? Retic H1.89 OV 06.06.22 Amitiza (too expensive) Alternative medications also very expensive. Start lactulose. Contact 09.17.22 Presented to [facility] ED and reports diagnosis of constipation. Stated that lactulose was helpful when it was being used. Refilled with recommendation to use to have 1-2 BM each day. Will call in one week with an update. OV 12.08.22 recently hospitalized [facility] for SBO and then stayed in [place] for rehab therapy. BM occur daily with use of stool softeners and MiraLAX. She has not been taking laculose since discharge as she forgot about it. [facility] 03/11/2025 - 03/19/2025 after presentation to the ED with a history of transverse myelitis, emesis, abdominal pain and diarrhea. CT abdomen pelvis with probable enteritis with small bowel distention and enhancement cannot exclude small bowel obstruction and follow-up is recommended. Admitted for further management. Did not require surgical intervention and discharged. Patient did have a hemoglobin drop while admitted. On admission hemoglobin was 12.1 and at discharge 7.5. OV 04/04/25 patient continues to have constipation going up to a week without a bowel movement. She is currently taking MiraLAX and lactulose twice a day. She only has a bowel movement when she is given a whole bottle of magnesium citrate. Prior to hospitalization she was just taking fiber and MiraLAX as needed. [facility] Medical History Post-menopausal Seizures History of irregular heartbeat Cardiology follow-up encounter Pressure ulcer of ischium, stage 2 Low iron Open wound Bowel obstruction Skin tear Iron deficiency anemia due to chronic blood loss Pressure ulcer of coccygeal region, stage 3 Implantable intrathecal infusion pump present Transverse myelitis Wears glasses Cancer Uses wheelchair Back pain Non-smoker BiPAP (biphasic positive airway pressure) dependence History of edema History of echocardiogram History of stress test Pressure ulcer of left foot, stage 3 Burn of third degree of buttock, subsequent encounter Chronic venous insufficiency Pressure ulcer of right ischium Chronic central neuropathic pain Central pain syndrome Insomnia Muscle spasm Neuropathic pain Depression Anxiety Sepsis SVT (supraventricular tachycardia) UTI (urinary tract infection) Hypokalemia Leukopenia Open wound of genital labia Acute osteomyelitis of left pelvic region Constipation Anemia Hip fracture Pressure sore of left ischium, stage 4 Left perineal ischial pressure ulcer Hypotension Self-catheterizes urinary bladder Chronic abdominal pain Home Medications ?Medication ?Instructions ?Recorded ?Last Taken ?Type trazodone 100 mg tablet 100 mg PO QHS sleep #30 TABLETS 09/14/15 04/25/25 Rx gabapentin 800 mg tablet 800 mg PO 4X/DAYCM neuropathy #30 04/21/19 04/26/25 Rx tabs clonidine HCl 0.2 mg tablet 0.2 mg PO QHS bp 09/04/20 04/25/25 History duloxetine 60 mg capsule,delayed 60 mg PO DAILY depression 01/14/21 04/26/25 History release (Cymbalta) duloxetine 30 mg capsule,delayed 30 mg PO DAILY depression 03/31/24 04/26/25 History release naproxen 375 mg tablet 375 mg PO BID pain 04/13/24 04/26/25 History PAIN PUMP (INFORMATIONAL USE pain 03/11/25 04/26/25 History ONLY-PATIENT HAS HYDROMORPHONE PUMP) metoclopramide HCl 5 mg tablet 5 mg PO Q8H #1 TAB 03/18/25 04/26/25 Rx (Reglan) metoprolol tartrate 25 mg tablet 25 mg PO BID #0 tabs 03/18/25 04/26/25 Rx ferrous gluconate 324 mg (38 mg 324 mg PO BID #60 tabs 03/20/25 04/23/25 Rx iron) tablet linaclotide 145 mcg capsule 145 mcg PO DAILY #30 caps 04/04/25 Unknown Rx (Linzess) oxycodone 5 mg tablet 15 mg (3 x 5 mg) PO Q6 PRN pain 30 04/20/25 04/26/25 Rx days #120 tabs Allergy/AdvReac Type Severity Reaction Status Date / Time ziconotide (From Prialt) Allergy Severe Other Verified 04/26/25 12:51 Family History Father Colon cancer Mother No problems noted. Other Cancer Hypertension Surgical History Hx of colonoscopy History of lysis of adhesions Hx of colonoscopy S/P insertion of spinal cord stimulator Hx of tonsillectomy Social History household members: other details: The patient lives with her daughter. housing: apartment current occupation: Unemployed Smoking Status: Never smoker ROS Constitutional Constitutional: Denies fatigue, fever(s), poor appetite, weight gain or weight loss Gastrointestinal Gastrointestinal: Denies belching, bloating, change in bowel habits, change in stool character, chewing difficulty, coffee ground emesis, constipation, cramping, diarrhea, dyspepsia, dysphagia, early satiety, excessive flatus, fecal incontinence, heartburn, hematemesis, hematochezia, hemorrhoids, loose stools, melena, nausea, odynophagia, rectal bleeding, tenesmus, vomiting or weight changes Patient's Goals Of Care . What would you like to achieve or improve as a result of your hospital stay?: none Vital Signs Vital Signs Vital Signs: 04/26/25 12:53 04/26/25 12:53 04/26/25 12:53 Temperature 98.1 F Temperature Source Temporal Pulse Rate 75 Respiratory Rate 18 Respiratory Pattern Normal Blood Pressure 145/73 H Blood Pressure Mean 97 Blood Pressure Source Monitor Blood Pressure Position Semi-Fowlers Blood Pressure Location Left Arm Baseline BP 145/73 Pulse Ox 100 Oxygen Delivery Method Room Air Weight Weight: 99 lb 4.122 oz Body Mass Index (BMI) 18.1 Physical Exam Const alert, oriented x3, no apparent distress and healthy appearing General Appearance: cooperative GI normal to inspection, nondistended, normoactive bowel sounds, soft to palpation, non-tender and non-distended Percussion: normal to percussion Rectal Exam: deferred Assessment & Plan Assessment/Plan (1) Chronic anemia: PLAN: Assessment and Plan Assessment and Plan (1) Partial small bowel obstruction: Status: Acute (2) Chronic constipation: Status: Chronic (3) Iron deficiency anemia due to chronic blood loss: Status: Chronic (4) Anemia: Status: Acute Plan: Aleena is a 74-year-old patient with past medical history of paraplegia, anemia, chronic constipation, decubitus ulcers and small bowel obstruction here today for follow-up. Patient recently hospitalized due to enteritis and possible partial small bowel obstruction. This was treated conservatively without surgical intervention. Patient notes that about 2 years ago she had a small bowel obstruction which required small bowel resection. She is currently residing at [facility] for rehabilitation. She continues to have constipation with a bowel movement about once a week after administration of magnesium citrate. Patient is taking MiraLAX and lactulose twice a day. Per chart review, it appears she has been on Amitiza in the past but had to be discontinued due to cost. Will recommend starting Linzess 145 mcg daily. . Continue MiraLAX and lactulose daily. Patient may discontinue MiraLAX and lactulose if Linzess is sufficient to control her constipation. She denies alarm symptoms such as severe abd pain or n/v that would indicate acute SBO. Constipation is multifactorial likely secondary to daily opioid use, iron supplementation and paraplegia. Patient also with downtrending hemoglobin since her admission to the hospital. At admission her hemoglobin was around 12 and most recently was down to 7.5 (03/29/25). With patient's past medical history of ulcers and extensive family history of colon cancer I have recommended colonoscopy and EGD for evaluation of her GI tract. Patient was agreeable to proceed with scheduling this today. - Continue MiraLAX and lactulose - Start Linzess 145 mcg daily - Colonoscopy and EGD ]
--- NOTE | 2025-04-26 13:14 | PCM.PRE.AN2 ---
ASA Classification* ASA Classification ASA Classification: 2 Assessment & Plan Anesthesia* Anesthesia Assessment Anesthesia Assessment: Discussed sedation and/or anesthesia options, risks, benefits, and alternatives with patient/parents/legal guardian/POA. Questions invited. The patient/parents/legal guardian/POA seems to understand and agrees to proceed with anesthesia plan. Reviewed the physical assessment, medical history, allergy history and patient home medications list prior to surgery/procedure/anesthetic and documented any changes. Performed airway and anesthesia risk assessments. Anesthesia Type Anesthesia Type: MAC Anesthesia Focused Assessment* Temperature: 98.1 F Pulse Rate: 75 Blood Pressure: 145/73 Respiratory Rate: 18 Pulse Ox: 100 Airway Assessment Mouth opens: >3 cm Mallampati Score: II Labs Anesthesia Preop lab: CBC WBC, (4.4-11.0) 4.1 K/mm3 L Today, 04:35 RBC, (4.2-5.4) 3.02 M/mm3 L Today, 04:35 Hgb, (12.0-15.0) 9.8 g/dL L Today, 04:35 Hct, (37-47) 29.9 % L Today, 04:35 Plt Count, (150-450) 212 K/mm3 Today, 04:35 CHEMISTRY Potassium, (3.5-5.1) 4.3 mmol/L Today, 04:35 Sodium, (135-145) 136 mmol/L Today, 04:35 Magnesium, (1.5-2.2) 1.8 mg/dL 03/18/25, 05:44 Phosphorus, (2.7-4.5) 2.7 mg/dL 03/18/25, 05:44 BUN, (4-19) 5 mg/dL Today, 04:35 Creatinine, (0.70-1.20) 0.37 mg/dL L Today, 04:35 Glucose, (70-99) 81 mg/dL Today, 04:35 POC Glucose, (74-106) 90 mg/dL 03/13/25, 05:07 TSH, (0.300-4.200) 0.576 uIU/mL 03/12/25, 05:58 COAG PT, (11.7-14.9) 14.3 SECONDS 03/11/25, 13:35 Pre-Assessment Diagnosis/Proposed Procedure Planned Operative Procedure(s): COLONOSCOPY/EGD Anesthesia History Anesthesia History - reserve officer: Anesthesia History - reserve officer Hx Hospitalization Yes: 03/2025, BLOOD 04/21/25 09:02 TRANSFUSION Any Problems With Anesthesia No 04/21/25 09:02 Cholinesterase deficiency No 04/21/25 09:02 You/Your Family Experience No 04/21/25 09:02 fever (hyperthermia) with Relationship Recent Exposure to Contagious No 04/26/25 12:53 Disease Does patient have nerve Yes: MEDTRON[employer] PAIN PUMP/ 04/21/25 09:02 stimulator HYDROMORPHONE/BACLOFEN Patient instructed to have device shut off --Does patient have Pacemaker No 04/26/25 12:53 or ICD? When Was Last Pacemaker Check QUESTION #4 FULL TEXT: You/Your Family Experience fever (hyperthermia) with Anesthesia Last Oral Intake Last Oral intake: Last Oral Intake NPO since 08:30 04/26/25 12:53 Meds taken in AM with sips of Yes 04/26/25 12:53 water? Meds patient instructed to take am of surgery PONV PONV - reserve officer: PONV - reserve officer Female Yes 04/21/25 09:02 HX of Motion Sickness No 04/21/25 09:02 HX of N/V After Surgery No 04/21/25 09:02 Non-Smoker Yes 04/21/25 09:02 Duration of Surgery greater No 04/21/25 09:02 than 60 minutes Number of Risk Factors 2 04/21/25 09:02 PONV Score Moderate Risk 04/21/25 09:02 Height & Weight Height & Weight: Anesthesia: Height & Weight Height 5 ft 2 in 04/26/25 12:53 Weight: 45.023 kg 04/26/25 12:53 Body Mass Index (BMI) 18.1 04/26/25 12:53 Respiratory Assessment Respiratory Assessment - reserve officer: Respiratory Tract Infection Hx - reserve officer Hx Respiratory Tract Infection No 04/21/25 09:02 STOP Sleep Apnea STOP Sleep Apnea - reserve officer: STOP Sleep Apnea - reserve officer Hx Hypertension No 04/21/25 09:02 Hx Sleep Apnea No 04/21/25 09:02 CPAP No 04/21/25 09:02 BIPAP Yes: noncompliant 04/21/25 09:02 Do you snore loudly (louder No 04/21/25 09:02 than talking or can be heard Do you often feel tired/ No 04/21/25 09:02 fatigued/ sleepy during daytime? Has anyone observed you stop No 04/21/25 09:02 breathing during sleep? STOP Results Negative 04/21/25 09:02 QUESTION #5 FULL TEXT : Do you snore loudly (louder than talking or can be heard through closed doors)? Tobacco Use History Tobacco Use History - reserve officer: Tobacco Use History - reserve officer Tobacco Use Smoking Status Never smoker 04/21/25 09:02 Hx Tobacco Use No 04/21/25 09:02 Years Smoking Packs Smoked per Day Smoking Cessation Date was within the last 15 years Hx Smoking Cessation Date Hx Smoking Cessation Counseling Hematologic Medial History Hematologic Hx - reserve officer: Hematologic Medical Hx - defense analyst Hx of Blood Transfusion Yes 04/21/25 09:02 Hx of Transfusion in last 3 Yes 04/21/25 09:02 Months Date of Last Transfusion (if 03/19/2025 04/21/25 09:02 within last 3 months) Ever experience any problems No 04/21/25 09:02 with transfusion(s)? Specify any problems Hx of Preganancy in last 3 No 04/21/25 09:02 Months Nurse Filling Out Transfusion VCHRISTIN 04/21/25 09:02 & Questions: Date: 04/21/25 04/21/25 09:02 Time: 09:04 04/21/25 09:02 Patient unable to answer at this time (ie. confused, unrespo /Reproduction History /Reproductive History - reserve officer: /Reproductive Hx- reserve officer Hx Now No 04/21/25 09:02 Gestational Age (in weeks): EDC: Hx Hx Para Hx Section SAB No 04/21/25 09:02 Does the father of the baby or his family experience fever w Father of the baby Malignant Hypertension history comment Active Medications Active Medications: Current Medications Generic Name Dose Route Start Last Admin Trade Name Freq PRN Reason Stop Dose Admin Lactated Ringer's 1,000 mls @ 15 mls/hr 04/26/25 12:45 04/26/25 13:00 IV 15 mls/hr .Q48H LIZ Administration PFSH Medical History Post-menopausal Seizures History of irregular heartbeat Cardiology follow-up encounter Pressure ulcer of ischium, stage 2 Low iron Open wound Bowel obstruction Skin tear Iron deficiency anemia due to chronic blood loss Pressure ulcer of coccygeal region, stage 3 Implantable intrathecal infusion pump present Transverse myelitis Wears glasses Cancer Uses wheelchair Back pain Non-smoker BiPAP (biphasic positive airway pressure) dependence History of edema History of echocardiogram History of stress test Pressure ulcer of left foot, stage 3 Burn of third degree of buttock, subsequent encounter Chronic venous insufficiency Pressure ulcer of right ischium Chronic central neuropathic pain Central pain syndrome Insomnia Muscle spasm Neuropathic pain Depression Anxiety Sepsis SVT (supraventricular tachycardia) UTI (urinary tract infection) Hypokalemia Leukopenia Open wound of genital labia Acute osteomyelitis of left pelvic region Constipation Anemia Hip fracture Pressure sore of left ischium, stage 4 Left perineal ischial pressure ulcer Hypotension Self-catheterizes urinary bladder Chronic abdominal pain Home Medications ?Medication ?Instructions ?Recorded ?Last Taken ?Type trazodone 100 mg tablet 100 mg PO QHS sleep #30 TABLETS 09/14/15 04/25/25 Rx gabapentin 800 mg tablet 800 mg PO 4X/DAYCM neuropathy #30 04/21/19 04/26/25 Rx tabs clonidine HCl 0.2 mg tablet 0.2 mg PO QHS bp 09/04/20 04/25/25 History duloxetine 60 mg capsule,delayed 60 mg PO DAILY depression 01/14/21 04/26/25 History release (Cymbalta) duloxetine 30 mg capsule,delayed 30 mg PO DAILY depression 03/31/24 04/26/25 History release naproxen 375 mg tablet 375 mg PO BID pain 04/13/24 04/26/25 History PAIN PUMP (INFORMATIONAL USE pain 03/11/25 04/26/25 History ONLY-PATIENT HAS HYDROMORPHONE PUMP) metoclopramide HCl 5 mg tablet 5 mg PO Q8H #1 TAB 03/18/25 04/26/25 Rx (Reglan) metoprolol tartrate 25 mg tablet 25 mg PO BID #0 tabs 03/18/25 04/26/25 Rx ferrous gluconate 324 mg (38 mg 324 mg PO BID #60 tabs 03/20/25 04/23/25 Rx iron) tablet linaclotide 145 mcg capsule 145 mcg PO DAILY #30 caps 04/04/25 Unknown Rx (Linzess) oxycodone 5 mg tablet 15 mg (3 x 5 mg) PO Q6 PRN pain 30 04/20/25 04/26/25 Rx days #120 tabs Allergy/AdvReac Type Severity Reaction Status Date / Time ziconotide (From Prialt) Allergy Severe Other Verified 04/26/25 12:51 Family History Father Colon cancer Mother No problems noted. Other Cancer Hypertension Surgical History Hx of colonoscopy History of lysis of adhesions Hx of colonoscopy S/P insertion of spinal cord stimulator Hx of tonsillectomy Social History household members: other details: The patient lives with her daughter. housing: apartment current occupation: Unemployed Smoking Status: Never smoker Review of Systems (Anesthesia) ROS Narrative System reviewed and no additional complaints, except as documented.
--- NOTE | 2025-04-26 13:45 | COLBX_PTH ---
PATIENT: MAGALI ANDREA LOC: EN U#:[id number] AGE/SX: 74/F ROOM: RE04/26/[address]: Dr. Stef Ewing DO : 1950 BED: DIS: 04/26/2025 SPEC #: [id number] RECD: 04/28/25 07:21 STATUS: CHRISTIE RESteve #: [id number] ALLIE: 04/26/25 13:[address]: Stef Ewing DEPT: SURGICAL PATHOLOGY RECD BY: Vinh Hudson ENTERED: 04/28/25 10:31 SP TYPE: COLON BX OTHR DR: Ye Hoffman MD Tissues: A - Gastric mucous membrane Procedures: Immunohistochemical Stains Surgery Specimen Level IV HEADER OPERATION: Colonoscopy with argon plasma coagulation, EGD with biopsy PRE-OP DIAGNOSIS: Partial small bowel obstruction, chronic constipation, iron deficiency anemia due to chronic blood loss, anemia TISSUE SUBMITTED: A- Gastric body biopsy MICROSCOPIC DIAGNOSIS A. Stomach, body, biopsy: - Oxyntic mucosa with active chronic inflammation, - IHC negative for H. pylori organisms. MICROSCOPIC DESCRIPTION Slides are reviewed. All matched controls reacted appropriately. These tests were developed and their performance characteristics determined by [facility]. They may not have been cleared or approved by the U.S. Food and Drug Administration. The FDA has determined that such clearance or approval is not necessary. The above immunohistochemical markers are viewed by the Pathologist. GROSS DESCRIPTION A. Received in fixative is one container labeled with the patient's name and designated Gastric body biopsy. The specimen consists of three irregular fragments of matthews tissue that measure 0.6 x 0.5 x 0.2cm. The specimen is totally submitted in one cassette. 04/28/2025 CPT:05525,73154
[2025-04-26] MEDS: Lactated Ringers 500 ML IV (15:03)
[2025-04-26] MEDS: Lidocaine 1% (5 ml sdv) 5 ML Vial 7 ML IV (15:08)
--- NOTE | 2025-04-26 15:46 | OP.EGD_ITS ---
Patient Name: Aleena Perales Procedure Date: 04/26/2025 2:20 PM Date of : 1950 Age: 74 Procedure: Upper GI endoscopy Indications: Iron deficiency anemia Providers: Stef Ewing DO Referring MD: Ye Hoffman Md Medicines: Monitored Anesthesia Care Patient Profile: This is a 74 year old female. Refer to note in patient chart for documentation of history and physical. Complications: No immediate complications. Procedure: Pre-Anesthesia Assessment: - Prior to the procedure, a History and Physical was performed, and patient medications and allergies were reviewed. The patient is competent. The risks and benefits of the procedure and the sedation options and risks were discussed with the patient. All questions were answered and informed consent was obtained. Patient identification and proposed procedure were verified by the physician in the pre-procedure area. Mental Status Examination: alert and oriented. Airway Examination: normal oropharyngeal airway and neck mobility. Respiratory Examination: clear to auscultation. CV Examination: normal. Prophylactic Antibiotics: The patient does not require prophylactic antibiotics. Prior Anticoagulants: The patient has taken no anticoagulant or antiplatelet agents except for NSAID medication. ASA Grade Assessment: II - A patient with mild systemic disease. After reviewing the risks and benefits, the patient was deemed in satisfactory condition to undergo the procedure. The anesthesia plan was to use monitored anesthesia care (MAC). Immediately prior to administration of medications, the patient was re-assessed for adequacy to receive sedatives. The heart rate, respiratory rate, oxygen saturations, blood pressure, adequacy of pulmonary ventilation, and response to care were monitored throughout the procedure. The physical status of the patient was re-assessed after the procedure. After obtaining informed consent, the endoscope was passed under direct vision. Throughout the procedure, the patient's blood pressure, pulse, and oxygen saturations were monitored continuously. The Colonoscope was introduced through the mouth, and advanced to the fourth part of the duodenum. Small bowel enteroscopy was deemed necessary. The upper GI endoscopy was accomplished without difficulty. The patient tolerated the procedure well. Scope In: 3:10:16 PM Scope Out: 3:12:21 PM Total Procedure Duration Time 0 hours 2 minutes 5 seconds Findings: The examined esophagus was normal. Patchy mildly erythematous mucosa without bleeding was found in the gastric body. Biopsies were taken with a cold forceps for Helicobacter pylori testing. Biopsies were taken with a cold forceps for histology. No gross lesions were noted in the entire examined duodenum. Impression: - Normal esophagus. - Erythematous mucosa in the gastric body. Biopsied. - No gross lesions in the entire examined duodenum. Recommendation: - Await pathology results. - Repeat upper endoscopy in 1 year for surveillance. - Continue present medications. Procedure Code(s): --- Professional --- 26500, Small intestinal endoscopy, enteroscopy beyond second portion of duodenum, not including ileum; with biopsy, single or multiple CPT copyright 2021 [employer]. All rights reserved. The codes documented in this report are preliminary and upon auditing coder review may be revised to meet current compliance requirements. Stef Ewing DO 04/26/2025 3:46:00 PM This report has been signed electronically. Number of Addenda: 0 Note Initiated On: 04/26/2025 2:20 PM
--- NOTE | 2025-04-26 15:46 | OP.PROVAT_ITS ---
04/26/2025 Ye Hoffman Md Re : Upper GI endoscopy procedure for Aleena Perales Dear Yasmin This procedure was performed on Saturday, April 26, 2025. My impressions and recommendations are as follows: Impressions : - Normal esophagus. - Erythematous mucosa in the gastric body. Biopsied. - No gross lesions in the entire examined duodenum. Recommendations : - Await pathology results. - Repeat upper endoscopy in 1 year for surveillance. - Continue present medications. My findings are described in the full procedure note, which is enclosed. If I can be of further assistance, please feel free to contact me at . Sincerely, Stef Ewing, 04/26/2025 3:46:00 PM This report has been signed electronically.
--- NOTE | 2025-04-26 15:47 | PCM.POST.ANE ---
Anesthesia: Postop Eval I Current Vital Signs Temperature: 98.4 F Pulse Rate: 70 Blood Pressure: 122/50 Respiratory Rate: 16 Pulse Ox: 100 Oxygen Delivery Method: Room Air Assessment Airway patent: Yes Spontaneous unlabored respirations: Yes Mental status: Awake nausea: No Vomiting: No Anesthesia Complication: No Fluid Hydration Crystalloid volume administer (ml): 500 Total IV fluid infused: 500 Progress Note Anesthesia document: Postop Eval 1 completed: Yes
--- NOTE | 2025-04-26 15:49 | PCM.POSTANE2 ---
Anesthesia Postop Eval I Sum Postop Eval Completion status Anesthesia document: Postop Eval 1 completed: Yes Anesthesia Postop Eval I Summary Anesthesia Postop Eval I Summary: Anesthesia Postop Eval I: Assessment Summary Airway patent Yes 04/26/25 15:48 Spontaneous unlabored Yes 04/26/25 15:48 respirations Mental status Awake 04/26/25 15:48 nausea No 04/26/25 15:48 Vomiting No 04/26/25 15:48 Anesthesia Postop Eval I: Fluid Summary Crystalloid volume administer 500 04/26/25 15:48 (ml) Colloids volume administered ( ml) Blood Product volume administered (ml) Total IV fluid infused 500 04/26/25 15:48 Anesthesia Postop Eval I: Summary Notes Anesthesia Complication No 04/26/25 15:48 Anesthesia Complication Comment: Post-operative progress note Anesthesia: Postop Eval II Evaluation Mental status: Awake Pain Level: 0 nausea: No Vomiting: No
--- NOTE | 2025-04-26 15:50 | OP.COLON_ITS ---
Patient Name: Aleena Perales Procedure Date: 04/26/2025 3:12 PM Date of : 1950 Age: 74 Procedure: Colonoscopy Indications: Iron deficiency anemia Providers: Stef Ewing DO Referring MD: Ye Hoffman Md Medicines: Monitored Anesthesia Care Patient Profile: This is a 74 year old female. Refer to note in patient chart for documentation of history and physical. Last Colonoscopy: several years ago. Complications: No immediate complications. Procedure: Pre-Anesthesia Assessment: - Prior to the procedure, a History and Physical was performed, and patient medications and allergies were reviewed. The patient is competent. The risks and benefits of the procedure and the sedation options and risks were discussed with the patient. All questions were answered and informed consent was obtained. Patient identification and proposed procedure were verified by the physician in the pre-procedure area. Mental Status Examination: alert and oriented. Airway Examination: normal oropharyngeal airway and neck mobility. Respiratory Examination: clear to auscultation. CV Examination: normal. Prophylactic Antibiotics: The patient does not require prophylactic antibiotics. Prior Anticoagulants: The patient has taken no anticoagulant or antiplatelet agents except for NSAID medication. ASA Grade Assessment: II - A patient with mild systemic disease. After reviewing the risks and benefits, the patient was deemed in satisfactory condition to undergo the procedure. The anesthesia plan was to use monitored anesthesia care (MAC). Immediately prior to administration of medications, the patient was re-assessed for adequacy to receive sedatives. The heart rate, respiratory rate, oxygen saturations, blood pressure, adequacy of pulmonary ventilation, and response to care were monitored throughout the procedure. The physical status of the patient was re-assessed after the procedure. After I obtained informed consent, the scope was passed under direct vision. Throughout the procedure, the patient's blood pressure, pulse, and oxygen saturations were monitored continuously. The Colonoscope was introduced through the anus and advanced to the ileocolonic anastomosis. The colonoscopy was performed with ease. The patient tolerated the procedure well. The quality of the bowel preparation was poor. The ileocecal valve, appendiceal orifice, and rectum were photographed. Scope In: 3:14:44 PM Scope Withdrawal Time 0 hours 13 minutes 20 seconds Scope Out: 3:37:31 PM Total Procedure Duration Time 0 hours 22 minutes 47 seconds Findings: The perianal and digital rectal examinations were normal. Stool was found in the entire colon. A single suture granuloma was found in the ascending colon. Coagulation for bleeding prevention using argon plasma at 0.3 liters/minute and 30 mc was successful. Estimated blood loss was minimal. Impression: - Preparation of the colon was poor. - Stool in the entire examined colon. - Suture granuloma in the ascending colon. Treated with argon plasma coagulation (APC). - No specimens collected. Recommendation: - Discharge patient to home. - Resume previous diet. - Continue present medications. - Repeat colonoscopy in 1 year for surveillance. Procedure Code(s): --- Professional --- 86155, Colonoscopy, flexible; with control of bleeding, any method CPT copyright 2021 [employer]. All rights reserved. The codes documented in this report are preliminary and upon mammal control agent review may be revised to meet current compliance requirements. Stef Ewing DO 04/26/2025 3:49:36 PM This report has been signed electronically. Number of Addenda: 0 Note Initiated On: 04/26/2025 3:12 PM
--- NOTE | 2025-04-26 15:50 | OP.PROVAT_ITS ---
04/26/2025 Ye Hoffman Md Re : Colonoscopy procedure for Aleena Perales Dear Yasmin This procedure was performed on Saturday, April 26, 2025. My impressions and recommendations are as follows: Impressions : - Preparation of the colon was poor. - Stool in the entire examined colon. - Suture granuloma in the ascending colon. Treated with argon plasma coagulation (APC). - No specimens collected. Recommendations : - Discharge patient to home. - Resume previous diet. - Continue present medications. - Repeat colonoscopy in 1 year for surveillance. My findings are described in the full procedure note, which is enclosed. If I can be of further assistance, please feel free to contact me at . Sincerely, Stef Ewing, 04/26/2025 3:49:36 PM This report has been signed electronically.
== END 2025-04-26 16:30 | disposition home or self-care (01) ==
LOC: EN 12:36 → AC 12:38
PROVIDERS: PCP Family Medicine; Referring Provider Family Medicine; Visit Provider Internal Medicine Gastroenterology
PROC: 0DJD8ZZ Inspection of Lower Intestinal Tract, Via Natural or Artificial Opening Endoscopic (ICD-10-PCS; CPT 45378; principal; 2025-04-26 13:40)
DX: K29.50 Unspecified chronic gastritis without bleeding (principal); G82.20 Paraplegia, unspecified; D50.0 Iron deficiency anemia secondary to blood loss (chronic); Z79.899 Other long term (current) drug therapy; F41.9 Anxiety disorder, unspecified; F32.A Depression, unspecified; Z87.19 Personal history of other diseases of the digestive system
CPT/HCPCS: 45382; 44361; 88305; 88342; C1889

== ENCOUNTER → 2025-05-02 | Outpatient (CLI) | payer MEDICARE, OTHER, SELFPAY ==
[2025-05-02 17:51] LABS: Hematocrit 35.4 % (37-47); Hemoglobin 11.4 g/dL (12.0-15.0); Mean Corp Hgb Conc 32.2 g/dL (32-36); Mean Corpuscular Volume 100.0 fL (81-99); Mean Platelet Vol. 9.8 fl (6.2-12.0); Platelet Count 204 K/mm3 (150-450); RBC Distribution Width CV 15.4 % (11.6-14.6); RBC Distribution Width SD 56.6 fl (35.1-43.9); Red Blood Count 3.54 M/mm3 (4.2-5.4); White Blood Count 4.4 K/mm3 (4.4-11.0)
[2025-05-02 18:23] LABS: AST(SGOT) 42 U/L (<=31); Alanine Aminotransfer ALT/SGPT 59 U/L (<=34); Albumin, Serum 4.0 g/dL (3.4-4.8); Alkaline Phosphatase 397 U/L (35-104); Anion Gap 10 (7-18); BUN 8 mg/dL (4-19); BUN/Creat Ratio 18.5 RATIO (10-20); Calcium,Total 8.9 mg/dL (7.6-11.0); Carbon Dioxide 27.6 mmol/L (20.0-29.0); Chloride 97 mmol/L (96-106); Ferritin 128 ng/mL (22-378); Globulin 3.1 g/dL (2.2-4.2); Glucose 78 mg/dL (70-99); Potassium 4.0 mmol/L (3.5-5.1)
[2025-05-02 19:09] LABS: Iron 94 ug/dL (50-170); Iron Binding Capacity,Total 242 ug/dL (250-450); Iron Binding Capacity,Unsat 148 ug/dL (228-428)
== END | disposition home or self-care (01) ==
LOC: MFPLAB 14:26
PROVIDERS: PCP Family Medicine; Referring Provider Family Medicine; Visit Provider Family Medicine
DX: D50.9 Iron deficiency anemia, unspecified (principal); E87.1 Hypo-osmolality and hyponatremia
CPT/HCPCS: 36415; 80053; 82728; 83540; 83550; 85027